=== PATIENT | female | born 1990 | race Caucasian/White ===

== ENCOUNTER 2017-10-29 17:03 | Observation (INO) | payer OTHER, MEDICAID, SELFPAY ==
[2017-10-29 17:14] VITALS: BP 120/80; PULSE 82; RESP 16; TEMP 36.3; O2SAT 97; BMI 21.7
--- NOTE | 2017-10-29 17:24 | ED_ITS ---
HPI - Nausea/Vomiting/Diarrhea <Sierra Villalobos PA-C - Last Filed: 10/29/17 22:17> General Chief complaint: Nausea/Vomiting/Diarrhea Stated complaint: FEELS DEHYDRATED,MOUTH DRY,LIPS DRY,NAUSEA Time Seen by Provider: 10/29/17 17:23 Source: patient Mode of arrival: ambulatory Limitations: no limitations History of Present Illness HPI Narrative: This 27-year-old the has a history of difficult to control type 1 diabetes comes in due to 1 hr history of sudden onset of nausea, dry mouth and lips, and feeling very thirsty. She states that she does have some headache with this which is a ?regular headache? versus more severe migraine which she describes as having prodrome all symptoms with visual scotoma. She states she has an acid sensation in her epigastrium and lower part of her chest. She states that she has not vomited ?yet?. She states that these symptoms typically happen when blood sugars are problematic. She states that she drink plenty of water today and has been eating normally. No changes in her insulin regimen. She states her blood sugars have been up and down recently , which she thinks is due to the heat. She states highs in the 300 today, lowest was 150. She states that she has not had any urinary symptoms such as frequency, dysuria or hematuria. She denies any abdominal pain recently, no diarrhea. She has not had fever or recent illness. She states that she has had these symptoms in the past, tend to improve with hydration and nausea medicine. She denies possibility of , LMP just ended Related Data Home Medications Medication Instructions Recorded Confirmed ACETAMINOPHEN 650 mg PO Q4HP PRN #0 03/03/16 10/29/17 Novolog Flexpen U-100 Insulin 5 - 15 units SUB-Q TID 10/29/17 10/29/17 Tresiba FlexTouch U-100 32 units SUB-Q DAILY 10/29/17 10/29/17 Allergies Allergy/AdvReac Type Severity Reaction Status Date / Time abdalla [ABDALLA] Allergy Intermediate Hives, Verified 10/29/17 17:59 pruritus iodine [IODINE] Allergy Intermediate rash, itchy Verified 10/29/17 17:59 morphine Allergy Intermediate Difficulty Verified 10/29/17 20:20 Breathing shellfish derived Allergy Intermediate rash Verified 10/29/17 17:59 [SHELLFISH DERIVED] adhesive [ADHESIVE] Allergy Unknown tape Verified 10/29/17 17:59 latex [LATEX] Allergy Unknown Verified 10/29/17 17:59 Review of Systems <SCOTTY Reece Last Filed: 10/29/17 22:17> Review of Systems All systems reviewed & are unremarkable except as noted in HPI and below Exam <SCOTTY Reece Last Filed: 10/29/17 22:17> Narrative Exam Narrative: GENERAL APPEARANCE: Patient sitting comfortably, in no distress. HEENT: PERRL, EOMI NECK: Supple LUNGS: Clear to auscultation bilaterally. HEART: Rate and rhythm regular without murmur, normal S1 and S2, no S3 or S4. ABDOMEN: Soft, moderate mid epigastric and substernal TTP without guarding or rebound, ND, + BS x 4 quadrants NEUROLOGIC: Alert and oriented, normal speech and coordination. MUSCULOSKELETAL: Full Csp AROM Initial Vital Signs Initial Vital Signs: Vital Signs Temperature 97.3 F L 10/29/17 17:14 Pulse Rate 82 10/29/17 17:14 Respiratory Rate 16 10/29/17 17:14 Blood Pressure 120/80 10/29/17 17:14 Pulse Oximetry 97 10/29/17 17:14 <Teddy Yap DO - Last Filed: 10/30/17 02:13> Initial Vital Signs Initial Vital Signs: Vital Signs Temperature 97.3 F L 10/29/17 17:14 Pulse Rate 82 10/29/17 17:14 Respiratory Rate 16 10/29/17 17:14 Blood Pressure 120/80 10/29/17 17:14 Pulse Oximetry 97 10/29/17 17:14 Course <SCOTTY Reece Last Filed: 10/29/17 22:17> Additional Information: Reviewed lab findings with Dr. Yap. Blood gas/pH is normal however glucose is over 1000. Patient is actually feeling better by the time this is returned and has had almost a L of fluids already. No change in mental status. Will continue fluid boluses and initiate insulin drip, plan ICU admission. I spoke with Dr. Granados who is agreeable and patient is admitted to ICU. Insulin drip has been started and 2nd L of fluids nearly complete at the time of transfer Orders Ordered: ED Orders 07/10/18 17:22 Urinalysis Sreen (Dip Only) Stat 10/29/17 17:36 Venous Blood Gas Stat 10/29/17 17:40 Complete Blood Count AUTO DIFF Stat Comprehensive Metabolic Panel Stat Lipase Stat 10/29/17 18:40 Test Urine Stat Urinalysis and Microscopic Stat 10/29/17 19:16 Glucose Stat 10/29/17 21:55 MRSA PCR Stat 10/29/17 22:08 Electrolytes Urgent Glucose Urgent 10/30/17 05:00 Basic Metabolic Panel Routine Insulin Human Regular 100 unit (/ Sodium Chloride) 100 mls @ 6 mls/hr IV TITRATE BLAISE; Protocol Last Titration: 10/29/17 22:10 Dose: 0 unit/hr, 0 mls/hr Titration: 10/29/17 21:00 Dose: 4 unit/hr, 4 mls/hr Admin: 10/29/17 19:07 Dose: 6 unit/hr, 6 mls/hr Sodium Chloride (Normal Saline 0.9% Flush) 10 ml IV BID BLAISE Sodium Chloride (Normal Saline 0.9% Flush) 10 ml IV PRN PRN PRN Reason: Flush Discontinued Medications Sodium Chloride (Normal Saline 0.9%) 1,000 mls @ 1,000 mls/hr IV BOLUS ONE Stop: 10/29/17 18:33 Last Infusion: 10/29/17 19:02 Dose: 0 mls/hr Admin: 10/29/17 18:00 Dose: 1,000 mls/hr Sodium Chloride (Normal Saline 0.9%) 1,000 mls @ 1,000 mls/hr IV BOLUS ONE Stop: 10/29/17 19:35 Last Infusion: 10/29/17 21:53 Dose: 0 mls/hr Admin: 10/29/17 19:44 Dose: 1,000 mls/hr Sodium Chloride (Normal Saline 0.9%) 1,000 mls @ 1,000 mls/hr IV BOLUS ONE Stop: 10/29/17 19:36 Last Admin: 10/29/17 20:43 Dose: Sodium Chloride (Normal Saline 0.9%) 1,000 mls @ 1,000 mls/hr IV BOLUS ONE Stop: 10/29/17 20:43 Last Admin: 10/29/17 21:54 Dose: Ondansetron HCl (Zofran) 4 mg IV NOW ONE Stop: 10/29/17 17:35 Last Admin: 10/29/17 18:00 Dose: 4 mg Vital Signs - 8 hr 10/29/17 19:07 10/29/17 19:50 10/30/17 00:08 Temperature 98.8 F 98.0 F Pulse Rate 78 96 H 80 Respiratory Rate 12 18 14 Blood Pressure 125/79 H 110/55 L Blood Pressure [Left Arm] 114/69 Pulse Oximetry 100 98 96 <Teddy Yap DO - Last Filed: 10/30/17 02:13> Orders Ordered: ED Orders 10/29/17 17:22 Urinalysis Sreen (Dip Only) Stat 10/29/17 17:36 Venous Blood Gas Stat 10/29/17 17:40 Complete Blood Count AUTO DIFF Stat Comprehensive Metabolic Panel Stat Lipase Stat 10/29/17 18:40 Test Urine Stat Urinalysis and Microscopic Stat 10/29/17 19:16 Glucose Stat 10/29/17 21:55 MRSA PCR Stat 10/29/17 22:08 Electrolytes Urgent Glucose Urgent 10/30/17 05:00 Basic Metabolic Panel Routine Insulin Human Regular 100 unit (/ Sodium Chloride) 100 mls @ 6 mls/hr IV TITRATE BLAISE; Protocol Last Titration: 10/29/17 22:10 Dose: 0 unit/hr, 0 mls/hr Titration: 10/29/17 21:00 Dose: 4 unit/hr, 4 mls/hr Admin: 10/29/17 19:07 Dose: 6 unit/hr, 6 mls/hr Sodium Chloride (Normal Saline 0.9% Flush) 10 ml IV BID BLAISE Sodium Chloride (Normal Saline 0.9% Flush) 10 ml IV PRN PRN PRN Reason: Flush Discontinued Medications Sodium Chloride (Normal Saline 0.9%) 1,000 mls @ 1,000 mls/hr IV BOLUS ONE Stop: 10/29/17 18:33 Last Infusion: 10/29/17 19:02 Dose: 0 mls/hr Admin: 10/29/17 18:00 Dose: 1,000 mls/hr Sodium Chloride (Normal Saline 0.9%) 1,000 mls @ 1,000 mls/hr IV BOLUS ONE Stop: 10/29/17 19:35 Last Infusion: 10/29/17 21:53 Dose: 0 mls/hr Admin: 10/29/17 19:44 Dose: 1,000 mls/hr Sodium Chloride (Normal Saline 0.9%) 1,000 mls @ 1,000 mls/hr IV BOLUS ONE Stop: 10/29/17 19:36 Last Admin: 10/29/17 20:43 Dose: Sodium Chloride (Normal Saline 0.9%) 1,000 mls @ 1,000 mls/hr IV BOLUS ONE Stop: 10/29/17 20:43 Last Admin: 10/29/17 21:54 Dose: Ondansetron HCl (Zofran) 4 mg IV NOW ONE Stop: 10/29/17 17:35 Last Admin: 10/29/17 18:00 Dose: 4 mg Vital Signs - 8 hr 10/29/17 19:07 10/29/17 19:50 10/30/17 00:08 Temperature 98.8 F 98.0 F Pulse Rate 78 96 H 80 Respiratory Rate 12 18 14 Blood Pressure 125/79 H 110/55 L Blood Pressure [Left Arm] 114/69 Pulse Oximetry 100 98 96 MDM - Nausea/Vomiting/Diarrhea <Sierra Villalobos PA-C - Last Filed: 10/29/17 22:17> Lab Data Attestation: I reviewed the patient's lab results. Result diagrams: 10/29/17 17:40 10/29/17 22:08 Lab Results 10/29/17 10/29/17 10/29/17 Range/Units 17:36 17:40 17:40 WBC 6.8 (4.5-11.0) X10^3/uL RBC 4.51 (4.0-5.2) X10^6/uL Hgb 13.6 (12.0-16.0) g/dL Hct 41.8 (36-46) % MCV 92.8 (80-100) fL MCH 30.2 (26-34) PG MCHC 32.5 (30-36) % RDW 12.9 (11.6-14.8) % Plt Count 261 (150-400) X10^3/uL Neut % (Auto) 66.7 (50-75) % Lymph % (Auto) 22.8 L (25-40) % [place] % (Auto) 8.4 (3-14) % Eos % (Auto) 1.1 L (2-4) % Baso % (Auto) 1.0 (0-2) % Neut # (Auto) 4500 (5756-8953) /uL VBG pH 7.41 (7.31-7.41) VBG pCO2 43.4 L (45-50) mmHg VBG pO2 34 L (35-45) mmHg VBG HCO3 27 (24-28) mmol/L VBG Total CO2 29 (24-29) mmol/L VBG O2 Saturation 65 L (70-75) % VBG Base Excess 3.0 (0-4) mmol/L Sodium 125 L (137-145) mmol/L Potassium 4.9 (3.4-5.1) mmol/L Chloride 90 L (98-107) mmol/L Carbon Dioxide 23 (22-32) mmol/L BUN 14 (7-17) mg/dL Creatinine 0.70 (0.52-1.04) mg/dL Estimated GFR > 60.0 (>60) mL/min BUN/Creatinine Ratio 20.0 (6-22) Glucose 1062 H* (70-100) mg/dL Calcium 9.4 (8.4-10.2) mg/dL Total Bilirubin 0.6 (0.2-1.3) mg/dL AST 23 (14-36) IU/L ALT 28 (9-52) IU/L Alkaline Phosphatase 228 H (38-126) U/L Total Protein 6.9 (6.3-8.2) g/dL Albumin 4.4 (3.5-5.0) g/dL Globulin 2.5 (1.7-4.1) g/dL Albumin/Globulin Ratio 1.8 (1.0-2.8) Lipase 166 (23-300) U/L Urine Color Urine Appearance Urine pH (4.5-8.0) Ur Specific [place] (1.000-1.035) Urine Protein (Negative) Urine Glucose (UA) (Normal) g/dL Urine Ketones (NEGATIVE) Urine Occult Blood (Negative) Urine Nitrate (Negative) Urine Bilirubin (NEGATIVE) Urine Urobilinogen (0.2) E.U./dL Ur Leukocyte Esterase (NEGATIVE) Urine RBC (0-5/HPF) Urine WBC (0-5/HPF) Ur Squamous Epith Cells Urine Bacteria (None) Ur Culture Indicated? Micro UA Comment Urine Test (Negative) Nasal Screen MRSA (PCR) (Negative) 10/29/17 10/29/17 10/29/17 Range/Units 18:40 18:40 19:16 WBC (4.5-11.0) X10^3/uL RBC (4.0-5.2) X10^6/uL Hgb (12.0-16.0) g/dL Hct (36-46) % MCV (80-100) fL MCH (26-34) PG MCHC (30-36) % RDW (11.6-14.8) % Plt Count (150-400) X10^3/uL Neut % (Auto) (50-75) % Lymph % (Auto) (25-40) % [place] % (Auto) (3-14) % Eos % (Auto) (2-4) % Baso % (Auto) (0-2) % Neut # (Auto) (9795-2411) /uL VBG pH (7.31-7.41) VBG pCO2 (45-50) mmHg VBG pO2 (35-45) mmHg VBG HCO3 (24-28) mmol/L VBG Total CO2 (24-29) mmol/L VBG O2 Saturation (70-75) % VBG Base Excess (0-4) mmol/L Sodium (137-145) mmol/L Potassium (3.4-5.1) mmol/L Chloride (98-107) mmol/L Carbon Dioxide (22-32) mmol/L BUN (7-17) mg/dL Creatinine (0.52-1.04) mg/dL Estimated GFR (>60) mL/min BUN/Creatinine Ratio (6-22) Glucose 846 H* (70-100) mg/dL Calcium (8.4-10.2) mg/dL Total Bilirubin (0.2-1.3) mg/dL AST (14-36) IU/L ALT (9-52) IU/L Alkaline Phosphatase (38-126) U/L Total Protein (6.3-8.2) g/dL Albumin (3.5-5.0) g/dL Globulin (1.7-4.1) g/dL Albumin/Globulin Ratio (1.0-2.8) Lipase (23-300) U/L Urine Color Yellow Urine Appearance Clear Urine pH 7.0 (4.5-8.0) Ur Specific [place] <=1.005 (1.000-1.035) Urine Protein Negative (Negative) Urine Glucose (UA) 3+ (Normal) g/dL Urine Ketones Negative (NEGATIVE) Urine Occult Blood Trace-lysed (Negative) Urine Nitrate Negative (Negative) Urine Bilirubin Negative (NEGATIVE) Urine Urobilinogen 0.2 (0.2) E.U./dL Ur Leukocyte Esterase Negative (NEGATIVE) Urine RBC 0-1/hpf (0-5/HPF) Urine WBC 1-5/hpf (0-5/HPF) Ur Squamous Epith Cells 0-1 /hpf Urine Bacteria None seen (None) Ur Culture Indicated? Cult not indicated Micro UA Comment Not Reportable Urine Test Negative (Negative) Nasal Screen MRSA (PCR) (Negative) 10/29/17 10/29/17 Range/Units 21:55 22:08 WBC (4.5-11.0) X10^3/uL RBC (4.0-5.2) X10^6/uL Hgb (12.0-16.0) g/dL Hct (36-46) % MCV (80-100) fL MCH (26-34) PG MCHC (30-36) % RDW (11.6-14.8) % Plt Count (150-400) X10^3/uL Neut % (Auto) (50-75) % Lymph % (Auto) (25-40) % [place] % (Auto) (3-14) % Eos % (Auto) (2-4) % Baso % (Auto) (0-2) % Neut # (Auto) (9533-2404) /uL VBG pH (7.31-7.41) VBG pCO2 (45-50) mmHg VBG pO2 (35-45) mmHg VBG HCO3 (24-28) mmol/L VBG Total CO2 (24-29) mmol/L VBG O2 Saturation (70-75) % VBG Base Excess (0-4) mmol/L Sodium 142 D (137-145) mmol/L Potassium 3.6 D (3.4-5.1) mmol/L Chloride 107 (98-107) mmol/L Carbon Dioxide 24 (22-32) mmol/L BUN (7-17) mg/dL Creatinine (0.52-1.04) mg/dL Estimated GFR (>60) mL/min BUN/Creatinine Ratio (6-22) Glucose 115 H D (70-100) mg/dL Calcium (8.4-10.2) mg/dL Total Bilirubin (0.2-1.3) mg/dL AST (14-36) IU/L ALT (9-52) IU/L Alkaline Phosphatase (38-126) U/L Total Protein (6.3-8.2) g/dL Albumin (3.5-5.0) g/dL Globulin (1.7-4.1) g/dL Albumin/Globulin Ratio (1.0-2.8) Lipase (23-300) U/L Urine Color Urine Appearance Urine pH (4.5-8.0) Ur Specific [place] (1.000-1.035) Urine Protein (Negative) Urine Glucose (UA) (Normal) g/dL Urine Ketones (NEGATIVE) Urine Occult Blood (Negative) Urine Nitrate (Negative) Urine Bilirubin (NEGATIVE) Urine Urobilinogen (0.2) E.U./dL Ur Leukocyte Esterase (NEGATIVE) Urine RBC (0-5/HPF) Urine WBC (0-5/HPF) Ur Squamous Epith Cells Urine Bacteria (None) Ur Culture Indicated? Micro UA Comment Urine Test (Negative) Nasal Screen MRSA (PCR) Negative for mrsa (Negative) <Teddy Yap DO - Last Filed: 10/30/17 02:13> Lab Data Lab Results 10/29/17 10/29/17 10/29/17 Range/Units 17:36 17:40 17:40 WBC 6.8 (4.5-11.0) X10^3/uL RBC 4.51 (4.0-5.2) X10^6/uL Hgb 13.6 (12.0-16.0) g/dL Hct 41.8 (36-46) % MCV 92.8 (80-100) fL MCH 30.2 (26-34) PG MCHC 32.5 (30-36) % RDW 12.9 (11.6-14.8) % Plt Count 261 (150-400) X10^3/uL Neut % (Auto) 66.7 (50-75) % Lymph % (Auto) 22.8 L (25-40) % [place] % (Auto) 8.4 (3-14) % Eos % (Auto) 1.1 L (2-4) % Baso % (Auto) 1.0 (0-2) % Neut # (Auto) 4500 (5664-1347) /uL VBG pH 7.41 (7.31-7.41) VBG pCO2 43.4 L (45-50) mmHg VBG pO2 34 L (35-45) mmHg VBG HCO3 27 (24-28) mmol/L VBG Total CO2 29 (24-29) mmol/L VBG O2 Saturation 65 L (70-75) % VBG Base Excess 3.0 (0-4) mmol/L Sodium 125 L (137-145) mmol/L Potassium 4.9 (3.4-5.1) mmol/L Chloride 90 L (98-107) mmol/L Carbon Dioxide 23 (22-32) mmol/L BUN 14 (7-17) mg/dL Creatinine 0.70 (0.52-1.04) mg/dL Estimated GFR > 60.0 (>60) mL/min BUN/Creatinine Ratio 20.0 (6-22) Glucose 1062 H* (70-100) mg/dL Calcium 9.4 (8.4-10.2) mg/dL Total Bilirubin 0.6 (0.2-1.3) mg/dL AST 23 (14-36) IU/L ALT 28 (9-52) IU/L Alkaline Phosphatase 228 H (38-126) U/L Total Protein 6.9 (6.3-8.2) g/dL Albumin 4.4 (3.5-5.0) g/dL Globulin 2.5 (1.7-4.1) g/dL Albumin/Globulin Ratio 1.8 (1.0-2.8) Lipase 166 (23-300) U/L Urine Color Urine Appearance Urine pH (4.5-8.0) Ur Specific [place] (1.000-1.035) Urine Protein (Negative) Urine Glucose (UA) (Normal) g/dL Urine Ketones (NEGATIVE) Urine Occult Blood (Negative) Urine Nitrate (Negative) Urine Bilirubin (NEGATIVE) Urine Urobilinogen (0.2) E.U./dL Ur Leukocyte Esterase (NEGATIVE) Urine RBC (0-5/HPF) Urine WBC (0-5/HPF) Ur Squamous Epith Cells Urine Bacteria (None) Ur Culture Indicated? Micro UA Comment Urine Test (Negative) Nasal Screen MRSA (PCR) (Negative) 10/29/17 10/29/17 10/29/17 Range/Units 18:40 18:40 19:16 WBC (4.5-11.0) X10^3/uL RBC (4.0-5.2) X10^6/uL Hgb (12.0-16.0) g/dL Hct (36-46) % MCV (80-100) fL MCH (26-34) PG MCHC (30-36) % RDW (11.6-14.8) % Plt Count (150-400) X10^3/uL Neut % (Auto) (50-75) % Lymph % (Auto) (25-40) % [place] % (Auto) (3-14) % Eos % (Auto) (2-4) % Baso % (Auto) (0-2) % Neut # (Auto) (3448-1183) /uL VBG pH (7.31-7.41) VBG pCO2 (45-50) mmHg VBG pO2 (35-45) mmHg VBG HCO3 (24-28) mmol/L VBG Total CO2 (24-29) mmol/L VBG O2 Saturation (70-75) % VBG Base Excess (0-4) mmol/L Sodium (137-145) mmol/L Potassium (3.4-5.1) mmol/L Chloride (98-107) mmol/L Carbon Dioxide (22-32) mmol/L BUN (7-17) mg/dL Creatinine (0.52-1.04) mg/dL Estimated GFR (>60) mL/min BUN/Creatinine Ratio (6-22) Glucose 846 H* (70-100) mg/dL Calcium (8.4-10.2) mg/dL Total Bilirubin (0.2-1.3) mg/dL AST (14-36) IU/L ALT (9-52) IU/L Alkaline Phosphatase (38-126) U/L Total Protein (6.3-8.2) g/dL Albumin (3.5-5.0) g/dL Globulin (1.7-4.1) g/dL Albumin/Globulin Ratio (1.0-2.8) Lipase (23-300) U/L Urine Color Yellow Urine Appearance Clear Urine pH 7.0 (4.5-8.0) Ur Specific [place] <=1.005 (1.000-1.035) Urine Protein Negative (Negative) Urine Glucose (UA) 3+ (Normal) g/dL Urine Ketones Negative (NEGATIVE) Urine Occult Blood Trace-lysed (Negative) Urine Nitrate Negative (Negative) Urine Bilirubin Negative (NEGATIVE) Urine Urobilinogen 0.2 (0.2) E.U./dL Ur Leukocyte Esterase Negative (NEGATIVE) Urine RBC 0-1/hpf (0-5/HPF) Urine WBC 1-5/hpf (0-5/HPF) Ur Squamous Epith Cells 0-1 /hpf Urine Bacteria None seen (None) Ur Culture Indicated? Cult not indicated Micro UA Comment Not Reportable Urine Test Negative (Negative) Nasal Screen MRSA (PCR) (Negative) 10/29/17 10/29/17 Range/Units 21:55 22:08 WBC (4.5-11.0) X10^3/uL RBC (4.0-5.2) X10^6/uL Hgb (12.0-16.0) g/dL Hct (36-46) % MCV (80-100) fL MCH (26-34) PG MCHC (30-36) % RDW (11.6-14.8) % Plt Count (150-400) X10^3/uL Neut % (Auto) (50-75) % Lymph % (Auto) (25-40) % [place] % (Auto) (3-14) % Eos % (Auto) (2-4) % Baso % (Auto) (0-2) % Neut # (Auto) (8220-8262) /uL VBG pH (7.31-7.41) VBG pCO2 (45-50) mmHg VBG pO2 (35-45) mmHg VBG HCO3 (24-28) mmol/L VBG Total CO2 (24-29) mmol/L VBG O2 Saturation (70-75) % VBG Base Excess (0-4) mmol/L Sodium 142 D (137-145) mmol/L Potassium 3.6 D (3.4-5.1) mmol/L Chloride 107 (98-107) mmol/L Carbon Dioxide 24 (22-32) mmol/L BUN (7-17) mg/dL Creatinine (0.52-1.04) mg/dL Estimated GFR (>60) mL/min BUN/Creatinine Ratio (6-22) Glucose 115 H D (70-100) mg/dL Calcium (8.4-10.2) mg/dL Total Bilirubin (0.2-1.3) mg/dL AST (14-36) IU/L ALT (9-52) IU/L Alkaline Phosphatase (38-126) U/L Total Protein (6.3-8.2) g/dL Albumin (3.5-5.0) g/dL Globulin (1.7-4.1) g/dL Albumin/Globulin Ratio (1.0-2.8) Lipase (23-300) U/L Urine Color Urine Appearance Urine pH (4.5-8.0) Ur Specific [place] (1.000-1.035) Urine Protein (Negative) Urine Glucose (UA) (Normal) g/dL Urine Ketones (NEGATIVE) Urine Occult Blood (Negative) Urine Nitrate (Negative) Urine Bilirubin (NEGATIVE) Urine Urobilinogen (0.2) E.U./dL Ur Leukocyte Esterase (NEGATIVE) Urine RBC (0-5/HPF) Urine WBC (0-5/HPF) Ur Squamous Epith Cells Urine Bacteria (None) Ur Culture Indicated? Micro UA Comment Urine Test (Negative) Nasal Screen MRSA (PCR) Negative for mrsa (Negative) Discharge Plan Departure Patient Disposition: Admitted As Inpatient Clinical Impression: Hyperglycemia Discharge Date/Time: 10/29/17 19:57 Interventions: ED Discharge Assessment Last Done: 10/29/17 19:57 Admit Date/Time: 10/29/17 19:31 Admit Provider: Yadira Granados <Teddy Yap DO - Last Filed: 10/30/17 02:13> Cosign ED Attending Cosshaheedature Attestation: I was immediately available in the department for consultation. Documentation has been reviewed. I agree with assessment and plan.
[2017-10-29 17:55] LABS: Add Manual Diff / Slide Review NO; Eosinophils Percent Auto 1.1 % (2-4); Hematocrit 41.8 % (36-46); Hemoglobin 13.6 g/dL (12.0-16.0); Lymphocytes Percent Auto 22.8 % (25-40); Mean Corpuscular HGB Conc 32.5 % (30-36); Mean Corpuscular Hemoglobin 30.2 PG (26-34); Mean Corpuscular Volume 92.8 fL (80-100); Monocytes Percent Auto 8.4 % (3-14); Neutrophils Absolute Auto 4500 /uL (3000-5900); Neutrophils Percent Auto 66.7 % (50-75); Platelet Count 261 X10^3/uL (150-400); Red Blood Cell Count 4.51 X10^6/uL (4.0-5.2); Red Cell Distribution Width 12.9 % (11.6-14.8); White Blood Cell Count 6.8 X10^3/uL (4.5-11.0)
[2017-10-29] MEDS: ONDANSETRON 4 MG/2 ML INJ IV (18:00)
[2017-10-29] MEDS: SODIUM CHLORIDE 0.9% 1,000 ML 1000 ML IV ×2 (18:00→19:44)
[2017-10-29 18:25] LABS: Alanine Aminotransferase 28 IU/L (9-52); Albumin 4.4 g/dL (3.5-5.0); Albumin Globulin Ratio 1.8 (1.0-2.8); Alkaline Phosphatase 228 U/L (38-126); Aspartate Aminotransferase 23 IU/L (14-36); Bilirubin Total 0.6 mg/dL (0.2-1.3); Blood Urea Nitrogen 14 mg/dL (7-17); Calcium 9.4 mg/dL (8.4-10.2); Carbon Dioxide 23 mmol/L (22-32); Chloride 90 mmol/L (98-107); Estimated Glomerular Filt Rate > 60.0 mL/min (>60); Globulin 2.5 g/dL (1.7-4.1); HEMOLYSIS < 15 (0-50); Lipase 166 U/L (23-300); Potassium 4.9 mmol/L (3.4-5.1); Sodium 125 mmol/L (137-145); Total Protein 6.9 g/dL (6.3-8.2)
[2017-10-29 18:34] LABS: Glucose 1062 mg/dL (70-100)
[2017-10-29 18:56] LABS: HCO3 VBG 27 mmol/L (24-28); PCO2 VBG 43.4 mmHg (45-50); PO2 VBG 34 mmHg (35-45); Total CO2 VBG 29 mmol/L (24-29); pH VBG 7.41 (7.31-7.41)
[2017-10-29 18:57] LABS: Pregnancy Test Urine Negative (Negative)
[2017-10-29 18:57] LABS: Oxygen Saturation VBG 65 % (70-75)
[2017-10-29 18:59] LABS: Bacteria Urine None Seen
[2017-10-29 19:01] LABS: Appearance Urine UA CLEAR; Bilirubin Urine UA NEGATIVE (NEGATIVE); Color Urine UA YELLOW; Glucose Urine UA 3+ g/dL (Normal); Ketones Urine UA NEGATIVE (NEGATIVE); Leukocyte Esterase Urine UA NEGATIVE (NEGATIVE); Nitrite Urine UA Negative (Negative); Occult Blood Urine UA TRACE-LYSED (Negative); Protein Urine UA NEGATIVE (Negative); Specific Gravity Urine UA <=1.005 (1.000-1.035); Urobilinogen Urine UA 0.2 E.U./dL (0.2)
[2017-10-29 19:07] VITALS: BP 114/69; PULSE 78; RESP 12; O2SAT 100
[2017-10-29] MEDS: INSULIN REGULAR, HUMAN 100 UNIT in SODIUM CHLORIDE 0.9% 100 ML 6 ML IV (19:07)
[2017-10-29 19:11] LABS: Culture Indicated Urine Cult Not Indicated; RBC Urine 0-1/HPF (0-5/HPF); Squamous Epithelial Cell Urine 0-1 /HPF; WBC Urine 1-5/HPF (0-5/HPF)
[2017-10-29 19:50] VITALS: BP 125/79; PULSE 96; RESP 18; TEMP 37.1; O2SAT 98
[2017-10-29 19:56] LABS: Glucose 846 mg/dL (70-100)
[2017-10-29 20:33] VITALS: BMI 22.7
--- NOTE | 2017-10-29 20:36 | PM.HP.1 ---
History of Present Illness Date Patient Seen: 10/29/17 Time Patient Seen: 20:20 Chief complaint: FEELS DEHYDRATED,MOUTH DRY,LIPS DRY,NAUSEA Narrative: 27-year-old female with history of type 1 diabetes who presented to the [facility] Emergency Room today for dry mouth, feeling thirsty, and nausea. She has type 1 diabetes. She is followed by Dr. Leonidas Oreilly. She is currently on 32 units of long-acting insulin and short-acting insulin per carb counting and sliding scale. She has been taking her insulin as prescribed. She also has been eating and drinking as usual. She has noticed fluctuating glucose readings in the past couple days. Her glucose was as high as 300 and as low as 150. She started having headache earlier this afternoon. She subsequently started feeling thirsty and dry mouth. She felt she was not able to keep oral hydration. She also started having nausea. She subsequently was brought to the [facility] Emergency Room. Her glucose was found to be greater than 1000. Her bicarb was normal. PH on the ABG was also normal. She received 2 L of IV fluid flush. She was also started on insulin drip, currently at 8 units/minute. She feels much better since she came to the hospital. Patient History Medical History Migraine headache (Chronic) Type 1 diabetes mellitus (Chronic) DKA (diabetic ketoacidoses) (Resolved) History of pyelonephritis (Resolved) Nephrolithiasis (Resolved) Surgical History History of ureter stent (Resolved) Comment: Social history: She is single. She has been with her current sexual partner for about 8 months. Denies alcohol drinking or cigarette smoking. Family history: mother had ?leaky heart valve? Family & Social History Safety & Behavioral: Feels Safe in Current Yes Environment Been Physically Hurt or No Threatened By a Person Tobacco & Substance use: Smoking Status Never smoker Substance Use Type does not use Meds Home Medications Medication Instructions Recorded Confirmed Type ACETAMINOPHEN 650 mg PO Q4HP PRN #0 03/03/16 10/29/17 History Novolog Flexpen U-100 Insulin 5 - 15 units SUB-Q TID 10/29/17 10/29/17 History Tresiba FlexTouch U-100 32 units SUB-Q DAILY 10/29/17 10/29/17 History Allergies Allergy/AdvReac Type Severity Reaction Status Date / Time arredondo [ARREDONDO] Allergy Intermediate Hives, Verified 10/29/17 17:59 pruritus iodine [IODINE] Allergy Intermediate rash, itchy Verified 10/29/17 17:59 morphine Allergy Intermediate Difficulty Verified 10/29/17 20:20 Breathing shellfish derived Allergy Intermediate rash Verified 10/29/17 17:59 [SHELLFISH DERIVED] adhesive [ADHESIVE] Allergy Unknown tape Verified 10/29/17 17:59 latex [LATEX] Allergy Unknown Verified 10/29/17 17:59 Review of Systems Constitutional Constitutional: Reports weakness Comments: Denies fever chills or sweats Cardiovascular Comments: No chest pain or shortness of breath Respiratory Comments: Denies cough Gastrointestinal Gastrointestinal: Reports nausea Genitourinary Comments: Denies urinary frequency or urgency. No burning with urination Musculoskeletal Comments: No back pain Neurologic Neurologic: Reports weakness Exam Vital Signs (past 8 hours): - 10/29/17 17:14 10/29/17 19:07 Temperature 97.3 F L Pulse Rate 82 78 Respiratory Rate 16 12 Blood Pressure 120/80 Blood Pressure [Left Arm] 114/69 Pulse Oximetry 97 100 Oxygen Delivery Method Room Air Narrative Exam Narrative: GENERAL: Well-appearing, well-nourished and in no acute distress. HEENT: Head normocephalic, atraumatic. Eyes pupils equal round NECK: Supple, no JVD, CHEST: Breath sounds equal bilaterally, no wheezes rales or rhonchi. CARDIAC: Regular rate and rhythm without murmurs, rubs or gallops. ABDOMEN: Soft, nontender. Normoactive bowel sounds all 4 quadrants. No guarding or rebound. EXTREMITIES: Normal range of motion, no clubbing or edema. NEUROLOGICAL: Alert and oriented; Normal muscle strength. SKIN: Warm, dry, no petechiae, no rashes or lesions. Objective Labs Result Diagrams: 10/29/17 17:40 10/29/17 19:16 Labs: Laboratory Results - last 24 hr 10/29/17 10/29/17 10/29/17 17:36 17:40 17:40 WBC 6.8 RBC 4.51 Hgb 13.6 Hct 41.8 MCV 92.8 MCH 30.2 MCHC 32.5 RDW 12.9 Plt Count 261 Neut % (Auto) 66.7 Lymph % (Auto) 22.8 L [place] % (Auto) 8.4 Eos % (Auto) 1.1 L Baso % (Auto) 1.0 Neut # (Auto) 4500 VBG pH 7.41 VBG pCO2 43.4 L VBG pO2 34 L VBG HCO3 27 VBG Total CO2 29 VBG O2 Saturation 65 L VBG Base Excess 3.0 Sodium 125 L Potassium 4.9 Chloride 90 L Carbon Dioxide 23 BUN 14 Creatinine 0.70 Estimated GFR > 60.0 BUN/Creatinine Ratio 20.0 Glucose 1062 H* Calcium 9.4 Total Bilirubin 0.6 AST 23 ALT 28 Alkaline Phosphatase 228 H Total Protein 6.9 Albumin 4.4 Globulin 2.5 Albumin/Globulin Ratio 1.8 Lipase 166 Urine Color Urine Appearance Urine pH Ur Specific [place] Urine Protein Urine Glucose (UA) Urine Ketones Urine Occult Blood Urine Nitrate Urine Bilirubin Urine Urobilinogen Ur Leukocyte Esterase Urine RBC Urine WBC Ur Squamous Epith Cells Urine Bacteria Ur Culture Indicated? Micro UA Comment Urine Test 10/29/17 10/29/17 10/29/17 18:40 18:40 19:16 WBC RBC Hgb Hct MCV MCH MCHC RDW Plt Count Neut % (Auto) Lymph % (Auto) [place] % (Auto) Eos % (Auto) Baso % (Auto) Neut # (Auto) VBG pH VBG pCO2 VBG pO2 VBG HCO3 VBG Total CO2 VBG O2 Saturation VBG Base Excess Sodium Potassium Chloride Carbon Dioxide BUN Creatinine Estimated GFR BUN/Creatinine Ratio Glucose 846 H* Calcium Total Bilirubin AST ALT Alkaline Phosphatase Total Protein Albumin Globulin Albumin/Globulin Ratio Lipase Urine Color Yellow Urine Appearance Clear Urine pH 7.0 Ur Specific [place] <=1.005 Urine Protein Negative Urine Glucose (UA) 3+ Urine Ketones Negative Urine Occult Blood Trace-lysed Urine Nitrate Negative Urine Bilirubin Negative Urine Urobilinogen 0.2 Ur Leukocyte Esterase Negative Urine RBC 0-1/hpf Urine WBC 1-5/hpf Ur Squamous Epith Cells 0-1 /hpf Urine Bacteria None seen Ur Culture Indicated? Cult not indicated Micro UA Comment Not Reportable Urine Test Negative Assessment & Plan Plan: Assessment/Plan Narrative: 1. Hyperosmolar hyperglycemia: She had aggressive IV hydration with improvement of her symptoms. Discontinue IV fluids after the current L is finished. Start diabetic diet. Continue insulin drip at 6 units/hour. Titrate insulin dose if needed. Transition her to the outpatient insulin regimen once her glucose improves. We will check her electrolytes in about 4 hr. Replace electrolytes if needed. 2.Type 1 diabetes: She is currently on insulin drip. We will transition her to the subcutaneous insulin regimen once her hyperglycemia is improved.
--- NOTE | 2017-10-29 22:02 | PC.NURSE ---
Addendum entered by Mariela Mills R.N. 10/29/17 23:02: 2300 - Pt BG 86, Denies feelings of hypoglycemia. States that s/s of hypoglycemia usually occur around 60. Pt declines glucose source at this time. Monitor. Original Note: Addendum entered by Mariela Mills R.N. 10/29/17 22:59: 2200 - BG 112. Insulin gtt off. IV saline locked. Lab to repeat electrolytes. Pt denies need at this time. S.O. at bedside. Original Note: Pt alert and oriented. Denies nausea. Denies Pain. Insulin gtt initated at 6 units/hr by ER. 2100 BG decreased to 338, insulin gtt titrated to 4 units/hr. Bolus infusing complete. TKO for gtt. Pt taking ice chips. Call light in reach.
[2017-10-29 22:22] LABS: Carbon Dioxide 24 mmol/L (22-32); Chloride 107 mmol/L (98-107); Glucose 115 mg/dL (70-100); HEMOLYSIS < 15 (0-50); Potassium 3.6 mmol/L (3.4-5.1); Sodium 142 mmol/L (137-145)
[2017-10-30 00:08] VITALS: BP 110/55; PULSE 80; RESP 14; TEMP 36.7; O2SAT 96
--- NOTE | 2017-10-30 01:27 | PC.NURSE ---
[id number] Pt denies nausea and states she is feeling much better. CBG 130. Pt watching television. Significant other at bedside. Assessment completed.
[2017-10-30 04:38] VITALS: BP 100/47; PULSE 85; RESP 18; TEMP 36.3; O2SAT 97
[2017-10-30 05:24] LABS: BUN Creatinine Ratio 16.7 (6-22); Blood Urea Nitrogen 10 mg/dL (7-17); Calcium 8.5 mg/dL (8.4-10.2); Carbon Dioxide 25 mmol/L (22-32); Chloride 107 mmol/L (98-107); Estimated Glomerular Filt Rate > 60.0 mL/min (>60); Glucose 117 mg/dL (70-100); HEMOLYSIS < 15 (0-50); Potassium 3.4 mmol/L (3.4-5.1); Sodium 139 mmol/L (137-145)
--- NOTE | 2017-10-30 06:09 | PC.NURSE ---
0430 Pt awakens easily and denies nausea or abd pain. Finger stick glucose 114. Pt states she is feeling much better. 0445 Serum CO2 25 and serum glucose 117. Pt sleeping between interventions.
--- NOTE | 2017-10-30 06:37 | PC.NURSE ---
0630 Pt has not voided this shift. States no urge to void. Instructed to call for assist and need to measure urine. Pt agreeable.
[2017-10-30 08:03] VITALS: BP 110/69; PULSE 69; RESP 16; TEMP 36.9; O2SAT 99
--- NOTE | 2017-10-30 09:30 | PM.DS.1 ---
History of Present Illness Chief complaint: FEELS DEHYDRATED,MOUTH DRY,LIPS DRY,NAUSEA Narrative: 27-year-old female with history of type 1 diabetes who presented to the [facility] Emergency Room today for dry mouth, feeling thirsty, and nausea. She has type 1 diabetes. She is followed by Dr. Leonidas Oreilly. She is currently on 32 units of long-acting insulin and short-acting insulin per carb counting and sliding scale. She has been taking her insulin as prescribed. She also has been eating and drinking as usual. She has noticed fluctuating glucose readings in the past couple days. Her glucose was as high as 300 and as low as 150. She started having headache earlier this afternoon. She subsequently started feeling thirsty and dry mouth. She felt she was not able to keep oral hydration. She also started having nausea. She subsequently was brought to the [facility] Emergency Room. Her glucose was found to be greater than 1000. Her bicarb was normal. PH on the ABG was also normal. She received 2 L of IV fluid flush. She was also started on insulin drip, currently at 8 units/minute. She feels much better since she came to the hospital. Discharge Providers Date of admission: 10/29/17 19:31 Primary care physician: Leonidas Oreilly MD Discharge provider: Yadira Granados MD Discharge Date: 10/30/17 Summary Discharge Diagnosis: 1. Hyperosmolar hyperglycemia 2. Type 1 diabetes Hospital Course: Patient was treated with aggressive IV hydration. She received 2 L of IV normal saline fluid flushed. She was also started on insulin drip initially at 8 units/hour and subsequently at 6 units/hour. Her glucose normalized at 2200, about 3 hr after hospital admission. She insulin drip was turned off. Her fingerstick glucose readings are stable. Her nausea and abdominal discomfort have resolved. She is going to be discharged home. She will resume her home insulin regimen. She will follow up with Dr. Oreilly as outpatient. Encouraged her to keep oral hydration. Status at Discharge Cognitive/behavioral status at discharge: Alert and oriented x3 Functional status at discharge: independent ambulation Overall status at discharge: patient is back to baseline Time Spent with Patient Greater than 30 minutes Exam Vital Signs (past 8 hours): - 10/30/17 04:38 10/30/17 08:03 Temperature 97.4 F L 98.5 F Pulse Rate 85 69 Respiratory Rate 18 16 Blood Pressure 100/47 L 110/69 Pulse Oximetry 97 99 Oxygen Delivery Method Room Air Oxygen Flow Rate 0 Objective Labs Result Diagrams: 10/29/17 17:40 10/30/17 04:42 Labs: Laboratory Results - last 24 hr 10/29/17 10/29/17 10/29/17 17:36 17:40 17:40 WBC 6.8 RBC 4.51 Hgb 13.6 Hct 41.8 MCV 92.8 MCH 30.2 MCHC 32.5 RDW 12.9 Plt Count 261 Neut % (Auto) 66.7 Lymph % (Auto) 22.8 L [place] % (Auto) 8.4 Eos % (Auto) 1.1 L Baso % (Auto) 1.0 Neut # (Auto) 4500 VBG pH 7.41 VBG pCO2 43.4 L VBG pO2 34 L VBG HCO3 27 VBG Total CO2 29 VBG O2 Saturation 65 L VBG Base Excess 3.0 Sodium 125 L Potassium 4.9 Chloride 90 L Carbon Dioxide 23 BUN 14 Creatinine 0.70 Estimated GFR > 60.0 BUN/Creatinine Ratio 20.0 Glucose 1062 H* Calcium 9.4 Total Bilirubin 0.6 AST 23 ALT 28 Alkaline Phosphatase 228 H Total Protein 6.9 Albumin 4.4 Globulin 2.5 Albumin/Globulin Ratio 1.8 Lipase 166 Urine Color Urine Appearance Urine pH Ur Specific [place] Urine Protein Urine Glucose (UA) Urine Ketones Urine Occult Blood Urine Nitrate Urine Bilirubin Urine Urobilinogen Ur Leukocyte Esterase Urine RBC Urine WBC Ur Squamous Epith Cells Urine Bacteria Ur Culture Indicated? Micro UA Comment Urine Test Nasal Screen MRSA (PCR) 10/29/17 10/29/17 10/29/17 18:40 18:40 19:16 WBC RBC Hgb Hct MCV MCH MCHC RDW Plt Count Neut % (Auto) Lymph % (Auto) [place] % (Auto) Eos % (Auto) Baso % (Auto) Neut # (Auto) VBG pH VBG pCO2 VBG pO2 VBG HCO3 VBG Total CO2 VBG O2 Saturation VBG Base Excess Sodium Potassium Chloride Carbon Dioxide BUN Creatinine Estimated GFR BUN/Creatinine Ratio Glucose 846 H* Calcium Total Bilirubin AST ALT Alkaline Phosphatase Total Protein Albumin Globulin Albumin/Globulin Ratio Lipase Urine Color Yellow Urine Appearance Clear Urine pH 7.0 Ur Specific [place] <=1.005 Urine Protein Negative Urine Glucose (UA) 3+ Urine Ketones Negative Urine Occult Blood Trace-lysed Urine Nitrate Negative Urine Bilirubin Negative Urine Urobilinogen 0.2 Ur Leukocyte Esterase Negative Urine RBC 0-1/hpf Urine WBC 1-5/hpf Ur Squamous Epith Cells 0-1 /hpf Urine Bacteria None seen Ur Culture Indicated? Cult not indicated Micro UA Comment Not Reportable Urine Test Negative Nasal Screen MRSA (PCR) 10/29/17 10/29/17 10/30/17 21:55 22:08 04:42 WBC RBC Hgb Hct MCV MCH MCHC RDW Plt Count Neut % (Auto) Lymph % (Auto) [place] % (Auto) Eos % (Auto) Baso % (Auto) Neut # (Auto) VBG pH VBG pCO2 VBG pO2 VBG HCO3 VBG Total CO2 VBG O2 Saturation VBG Base Excess Sodium 142 D 139 Potassium 3.6 D 3.4 Chloride 107 107 Carbon Dioxide 24 25 BUN 10 Creatinine 0.60 Estimated GFR > 60.0 BUN/Creatinine Ratio 16.7 Glucose 115 H D 117 H Calcium 8.5 Total Bilirubin AST ALT Alkaline Phosphatase Total Protein Albumin Globulin Albumin/Globulin Ratio Lipase Urine Color Urine Appearance Urine pH Ur Specific [place] Urine Protein Urine Glucose (UA) Urine Ketones Urine Occult Blood Urine Nitrate Urine Bilirubin Urine Urobilinogen Ur Leukocyte Esterase Urine RBC Urine WBC Ur Squamous Epith Cells Urine Bacteria Ur Culture Indicated? Micro UA Comment Urine Test Nasal Screen MRSA (PCR) Negative for mrsa Discharge Plan Discharge Plan Discharge Problem: Hyperglycemia Patient Disposition: Home, Self-Care Provider Discharge Instructions Diet: Diet as Tolerated Diet comment: low carb diet Activity: as tolerated Discharge Data Primary Care Provider: Hola Hernandez Attending Provider: Yadira Granados Admit Date/Time: 10/29/17 19:31 Quality VTE Deep Vein Thrombosis/Pulmonary Embolism Present on Admission: No
--- NOTE | 2017-10-30 09:48 | CM.DANOTE ---
Patient is a 27 year old female who was admitted on 10/29/17 for Diabetic issues to ICU. Patient has [employer] for insurance and her PCP is Dr. Oreilly. EMR was reviewed. Per MD, pt did well with IV hydration and insulin drip. Per RN, pt has become more aware of her newer diabetes dx since her last admit in 2016 and seems to be managing quite well and no current d/c concerns. Pt resides in [place] with her family and has had supportive significant other bedside. Pt is independent with ADL's at baseline and drives. Pt sleeping soundly and SW could not wake up pt to assess but no needs identified. Per MD, pt is medically stable to d/c home today. Plan: Patient to d/c home today via family POV. No SW needs at this time. RAYMOND Roman Discharge Planning/Care Management CM Discharge Assessment Start: 10/30/17 09:46 Freq: Status: Active Protocol: Document 10/30/17 09:46 BF (Rec: 10/30/17 09:48 BF [id number]) Discharge Planning Assessment Assigned Home Health Registered Nurse RAYMOND History Provided By Patient Medical Record Has Patient been admitted in last 30 No days? Is this patient on Medicare? No Is the admit diagnosis the same? No Prior Living Arrangements House Household Members family Type of transporation used prior to Drives own vehicle admit Comment Independent at baseline Independent with ADL's Yes Is patient alert and oriented? Yes Caregiver for Another No Referrals Initiated None needed Discharge Plan Home Transportation Arrangement Significant other can provide transport at d/c. Review Status In Process Next Review Type Discharge Review
[2017-10-30] MEDS: POTASSIUM CHLORIDE 20 MEQ TAB 40 MEQ PO (10:24)
[2017-10-30] MEDS: INSULIN ASPART 100 UNIT/ML INSULN PEN SUBCUT (10:50)
--- NOTE | 2017-10-30 10:52 | PC.NURSE ---
PT PREPARING FOR D/C LATER THIS DATE OFF INSULIN GTT AND STATUS IMPROVING GREATLY- GIVEN 2U NOVALOG PER PT REQUEST SHE COUNTS CARBS AN OUTPT
== END 2017-10-30 11:28 | disposition home or self-care (01) ==
LOC: ED 17:22 → ICU 19:56
PROVIDERS: Admitting Provider Internal Medicine; Emergency Provider Internal Medicine; Family Provider Internal Medicine; PCP Internal Medicine; Visit Provider Internal Medicine
DX: E10.65 Type 1 diabetes mellitus with hyperglycemia (principal); E87.0 Hyperosmolality and hypernatremia
CPT/HCPCS: 36415; 36591; 80048; 80051; 80053; 81001; 81025; 82805; 82947; 82962; 83690; 85025; 87797; 96361; 96374; 99283; 99285; G0378; J2405

== ENCOUNTER 2017-12-14 16:18 | Emergency (ER) | payer OTHER, MEDICAID, SELFPAY ==
[2017-12-14 16:26] VITALS: BP 110/75; PULSE 99; RESP 14; TEMP 36.6; O2SAT 100; BMI 20.7
--- NOTE | 2017-12-14 17:09 | ED_ITS ---
HPI - URI/Sore Throat <Sierra Villalobos PA-C - Last Filed: 12/14/17 21:48> General Chief Complaint: Upper Respiratory Symptoms Stated Complaint: SORE THROAT HARD TIME SWALLOWING Time Seen by Provider: 12/14/17 16:33 Source: patient Mode of arrival: ambulatory Limitations: no limitations History of Present Illness HPI Narrative: This 27-year-old female comes in today due to sore throat. She states that this started yesterday, her throat march and very hard to swallow food and fluids due to the pain. Her throat does not feel blocked. She denies any fever, chills, or sweats. She states that she does have some runny nose and a slight cough. She denies any dyspnea or wheeze. She has not had headache. She states that she has had a bit of right earache and ear congestion, none on the left. She denies any known exposures except her brother who recently had a sinus infection. She denies any rash or other new symptoms on systems review. States blood sugars are stable Related Data Home Medications Medication Instructions Recorded Confirmed ACETAMINOPHEN 650 mg PO Q4HP PRN #0 03/03/16 10/29/17 Novolog Flexpen U-100 Insulin 5 - 15 units SUB-Q TID 10/29/17 10/29/17 Tresiba FlexTouch U-100 32 units SUB-Q DAILY 10/29/17 10/29/17 Allergies Allergy/AdvReac Type Severity Reaction Status Date / Time abdalla [ABDALLA] Allergy Intermediate Hives, Verified 10/29/17 17:59 pruritus iodine [IODINE] Allergy Intermediate rash, itchy Verified 10/29/17 17:59 morphine Allergy Intermediate Difficulty Verified 10/29/17 20:20 Breathing shellfish derived Allergy Intermediate rash Verified 10/29/17 17:59 [SHELLFISH DERIVED] adhesive [ADHESIVE] Allergy Unknown tape Verified 10/29/17 17:59 latex [LATEX] Allergy Unknown Verified 10/29/17 17:59 Review of Systems <Sierra Villalobos PA-C - Last Filed: 12/14/17 21:48> Review of Systems All systems reviewed & are unremarkable except as noted in HPI and below Exam <SCOTTY Reece Last Filed: 12/14/17 21:48> Narrative Exam Narrative: GENERAL APPEARANCE: Patient sitting comfortably, in no distress. HEAD: No sinus TTP. EYES: PERRL, EOMI. EARS: Normal auditory canals, TMS intact with normal light reflexes. ORAL CAVITY: Normal oropharynx. THROAT: Erythematous without exudate NECK/THYROID: Neck supple, full range of motion, no submandibular nodes, bilateral anterior cervical nodes and a few small posterior nodes LUNGS: Clear to auscultation bilaterally, no cough on exam. HEART: RRR without murmur, nl S1, S2, no S3 or S4. DERMATOLOGIC: No exanthem Initial Vital Signs Initial Vital Signs: Vital Signs Temperature 97.9 F 12/14/17 16:26 Pulse Rate 99 H 12/14/17 16:26 Respiratory Rate 14 12/14/17 16:26 Blood Pressure 110/75 12/14/17 16:26 Pulse Oximetry 100 12/14/17 16:26 <DO Kaitlin Lucero Last Filed: 12/15/17 07:04> Initial Vital Signs Initial Vital Signs: Vital Signs Temperature 97.9 F 12/14/17 16:26 Pulse Rate 99 H 12/14/17 16:26 Respiratory Rate 14 12/14/17 16:26 Blood Pressure 110/75 12/14/17 16:26 Pulse Oximetry 100 12/14/17 16:26 Course <Sierra Villalobos PA-C - Last Filed: 12/14/17 21:48> Orders Ordered: Discontinued Medications Lidocaine HCl (Viscous Lidocaine 2%) 15 ml PO NOW ONE Stop: 12/14/17 17:24 Last Admin: 12/14/17 17:38 Dose: 15 ml Vital Signs - 8 hr 12/14/17 16:26 12/14/17 18:23 Temperature 97.9 F 98.5 F Pulse Rate 99 H 78 Respiratory Rate 14 14 Blood Pressure 110/75 Blood Pressure [Left Arm] 110/72 Pulse Oximetry 100 99 <DO Kaitlin Lucero Last Filed: 12/15/17 07:04> Orders Ordered: Discontinued Medications Lidocaine HCl (Viscous Lidocaine 2%) 15 ml PO NOW ONE Stop: 12/14/17 17:24 Last Admin: 12/14/17 17:38 Dose: 15 ml Vital Signs - 8 hr 12/14/17 16:26 12/14/17 18:23 Temperature 97.9 F 98.5 F Pulse Rate 99 H 78 Respiratory Rate 14 14 Blood Pressure 110/75 Blood Pressure [Left Arm] 110/72 Pulse Oximetry 100 99 MDM - URI/Sore Throat <Sierra Villalobos PA-C - Last Filed: 12/14/17 21:48> Lab Data Attestation: I reviewed the patient's lab results. Lab Results 12/14/17 Range/Units 16:40 Group A Strep (PCR) Negative <Chandu Peters DO - Last Filed: 12/15/17 07:04> Lab Data Lab Results 12/14/17 Range/Units 16:40 Group A Strep (PCR) Negative Discharge Plan Departure Patient Disposition: Home Clinical Impression: Acute viral pharyngitis Discharge Date/Time: 12/14/17 18:25 Interventions: ED Discharge Assessment Last Done: 12/14/17 18:24 Instructions: DI for Pharyngitis/Tonsillopharyngitis -- Adult Activity Restrictions/Additional Instructions: Please return if you have acutely worse symptoms as we talked about. Otherwise , please take Tylenol and you can you sugar free [id number] sprays or lozenges as needed. Typically, these viral upper respiratory infections will run their course in 1-2 weeks. You should see your PCP if you are not feeling better in the next week or so Prescriptions: No Action ACETAMINOPHEN 650 mg PO Q4HP PRN (Reason: Pain (Scale Score 1-3)) Qty: 0 RF: 0 Tresiba FlexTouch U-100 32 units Sub-Q DAILY RF: 0 Novolog Flexpen U-100 Insulin 5 - 15 units Sub-Q TID RF: 0 Referrals: Hola Hernandez MD [Primary Care Provider] - <Chandu Peters DO - Last Filed: 12/15/17 07:04> Cosign ED Attending Cosshaheedature Attestation: I was available for consultation during this patient's emergency department encounter
[2017-12-14 17:12] LABS: Strep Grp A by PCR Rapid Negative
[2017-12-14] MEDS: LIDOCAINE VISCOUS 2% 15 ML SOLUTION PO (17:38)
[2017-12-14 18:23] VITALS: BP 110/72; PULSE 78; RESP 14; TEMP 36.9; O2SAT 99
== END 2017-12-14 18:25 | disposition home or self-care (01) ==
PROVIDERS: Emergency Provider Internal Medicine; Family Provider Internal Medicine; PCP Internal Medicine
DX: J02.8 Acute pharyngitis due to other specified organisms (principal)
CPT/HCPCS: 87651; 99282; 99283

== ENCOUNTER 2018-02-03 19:17 | Emergency (ER) | payer OTHER, MEDICAID, SELFPAY ==
[2018-02-03] VITALS (7 sets, daily range): BP systolic 101–148; BP diastolic 62–80; PULSE 76–89; RESP 8–17; TEMP 36.8; O2SAT 96–100; BMI 19.8
[2018-02-03] MEDS: SODIUM CHLORIDE 0.9% 1,000 ML 1000 ML IV ×2 (20:47→21:20)
[2018-02-03 20:52] LABS: Add Manual Diff / Slide Review NO; Basophils Percent Auto 0.5 % (0-2); Hematocrit 39.7 % (36-46); Hemoglobin 12.9 g/dL (12.0-16.0); Lymphocytes Percent Auto 18.5 % (25-40); Mean Corpuscular HGB Conc 32.6 % (30-36); Mean Corpuscular Hemoglobin 30.2 PG (26-34); Mean Corpuscular Volume 92.6 fL (80-100); Monocytes Percent Auto 6.1 % (3-14); Neutrophils Absolute Auto 8200 /uL (3000-5900); Neutrophils Percent Auto 73.9 % (50-75); Platelet Count 328 X10^3/uL (150-400); Red Blood Cell Count 4.28 X10^6/uL (4.0-5.2); Red Cell Distribution Width 12.8 % (11.6-14.8); White Blood Cell Count 11.1 X10^3/uL (4.5-11.0)
[2018-02-03 21:03] LABS: Alanine Aminotransferase 27 IU/L (9-52); Albumin Globulin Ratio 1.7 (1.0-2.8); Alkaline Phosphatase 201 U/L (38-126); Aspartate Aminotransferase 27 IU/L (14-36); BUN Creatinine Ratio 35.7 (6-22); Bilirubin Total 0.6 mg/dL (0.2-1.3); Blood Urea Nitrogen 25 mg/dL (7-17); Calcium 9.1 mg/dL (8.4-10.2); Carbon Dioxide 21 mmol/L (22-32); Chloride 94 mmol/L (98-107); Estimated Glomerular Filt Rate > 60.0 mL/min (>60); Globulin 2.4 g/dL (1.7-4.1); HEMOLYSIS 44 (0-50); Lactate (Lactic Acid) 0.8 mmol/L (0.7-2.1); Potassium 5.1 mmol/L (3.4-5.1); Sodium 129 mmol/L (137-145); Total Protein 6.4 g/dL (6.3-8.2)
[2018-02-03 21:04] LABS: HCO3 VBG 23 mmol/L (24-28); PCO2 VBG 41.3 mmHg (45-50); PO2 VBG 39 mmHg (35-45); Total CO2 VBG 24 mmol/L (24-29); pH VBG 7.35 (7.31-7.41)
[2018-02-03 21:05] LABS: Oxygen Saturation VBG 71 % (70-75)
[2018-02-03 21:06] LABS: Ketones (Beta-Hydroxybutyrate) 3.37 mmol/L (<0.27)
[2018-02-03 21:13] LABS: Glucose 781 mg/dL (70-100)
[2018-02-03 21:27] LABS: Procalcitonin < 0.05 ng/mL (<0.5)
--- NOTE | 2018-02-03 21:41 | ED_ITS ---
HPI - Nausea/Vomiting/Diarrhea General Chief complaint: Nausea/Vomiting/Diarrhea Stated complaint: DEHYDRATION,NAUSEA Time Seen by Provider: 02/03/18 21:16 Source: patient Mode of arrival: ambulatory Limitations: no limitations History of Present Illness HPI Narrative: patient is a 28-year-old female presents with nausea and some mild abdominal pain. She is a type 1 diabetic. She states that she has not missed any insulin doses she started feeling like some chest discomfort. She denies any cough or shortness of breath or pleuritic pain. She has not had fever or chills. She was slightly nauseated but got some Zofran no vomiting. No significant abdominal pain. Accu-Chek in the ED is more than 500. MD complaint: nausea and vomiting Related Data Home Medications Medication Instructions Recorded Confirmed ACETAMINOPHEN 650 mg PO Q4HP PRN #0 03/03/16 10/29/17 Novolog Flexpen U-100 Insulin 5 - 15 units SUB-Q TID 10/29/17 10/29/17 Tresiba FlexTouch U-100 32 units SUB-Q DAILY 10/29/17 10/29/17 Allergies Allergy/AdvReac Type Severity Reaction Status Date / Time arredondo [ARREDONDO] Allergy Intermediate Hives, Verified 02/03/18 19:43 pruritus iodine [IODINE] Allergy Intermediate rash, itchy Verified 02/03/18 19:43 morphine Allergy Intermediate Difficulty Verified 02/03/18 19:43 Breathing shellfish derived Allergy Intermediate rash Verified 02/03/18 19:43 [SHELLFISH DERIVED] adhesive [ADHESIVE] Allergy Unknown tape Verified 02/03/18 19:43 latex [LATEX] Allergy Unknown Verified 02/03/18 19:43 Review of Systems Review of Systems All systems reviewed & are unremarkable except as noted in HPI and below Constitutional Denies chills, Denies fever(s), Denies lethargy and Denies weakness Cardiovascular Reports chest pain, Denies irregular heart rhythm, Denies lightheadedness, Denies palpitations and Denies orthopnea Musculoskeletal Denies back pain, Denies muscle weakness, Denies numbness and Denies tingling Neurologic Denies numbness, Denies tingling and Denies weakness Endocrine Denies palpitations PFSH Social History household members: family Smoking Status: Never smoker alcohol intake: never Exam Initial Vital Signs Initial Vital Signs: Vital Signs Temperature 98.3 F 02/03/18 19:40 Pulse Rate 86 02/03/18 19:40 Respiratory Rate 14 02/03/18 19:40 Blood Pressure 119/80 02/03/18 19:40 Pulse Oximetry 99 02/03/18 19:40 GENERAL: Awake alert oriented cooperative nontoxic HEENT: Head atraumatic,EOMI, pupils reactive, face symmetric CARDIOVASCULAR: Regular rate and rhythm without murmurs, rubs or gallops. RESPIRATORY: Breath sounds equal bilaterally, no wheezes rales or rhonchi. ABDOMEN: Soft, nontender. Normoactive bowel sounds all 4 quadrants. No guarding or rebound. EXTREMITIES: Normal range of motion, no clubbing or edema. Neurovascularly intact NEUROLOGICAL: Alert and oriented x4.Normal gait and speech. Cranial nerves II through XII grossly intact. SKIN: Warm, dry, no laceration, no petechiae, no rashes or lesions. Course Orders Ordered: ED Orders 02/03/18 20:38 Venous Blood Gas Stat 02/03/18 20:40 Complete Blood Count AUTO DIFF Stat Comprehensive Metabolic Panel Stat Ketones (Beta-Hydroxybutyrate) Stat Lactate (Lactic Acid) Stat Procalcitonin Stat 02/03/18 21:41 XR chest 2V Stat 02/03/18 21:42 EKG-12 Lead Stat 02/03/18 23:03 Electrolytes Stat Discontinued Medications Sodium Chloride (Normal Saline 0.9%) 1,000 mls @ 1,000 mls/hr IV BOLUS ONE Stop: 02/03/18 21:31 Last Infusion: 02/03/18 21:20 Dose: 0 mls/hr Admin: 02/03/18 20:47 Dose: 1,000 mls/hr Sodium Chloride (Normal Saline 0.9%) 1,000 mls @ 1,000 mls/hr IV BOLUS ONE Stop: 02/03/18 22:16 Last Infusion: 02/03/18 22:55 Dose: 0 mls/hr Admin: 02/03/18 21:20 Dose: 1,000 mls/hr Insulin Human Regular (Humulin R) 10 unit SUBCUT NOW ONE Stop: 02/03/18 21:43 Last Admin: 02/03/18 22:15 Dose: 10 unit Vital Signs - 8 hr 02/03/18 21:00 02/03/18 21:30 02/03/18 22:00 Pulse Rate 83 86 82 Respiratory Rate 8 L 15 16 Blood Pressure [Left Arm] 115/77 113/68 115/79 Pulse Oximetry 99 99 100 02/03/18 22:30 02/03/18 22:38 02/03/18 23:30 Pulse Rate 80 76 89 Respiratory Rate 16 17 17 Blood Pressure [Left Arm] 116/80 148/73 H 101/62 Pulse Oximetry 100 96 99 02/04/18 00:20 Pulse Rate 92 H Respiratory Rate 18 Blood Pressure [Left Arm] 116/68 Pulse Oximetry 100 MDM - Nausea/Vomiting/Diarrhea Lab Data Attestation: I reviewed the patient's lab results. Anion gap 14 Repeat anion gap=14 Result diagrams: 02/03/18 20:40 02/03/18 23:03 Lab Results 02/03/18 02/03/18 02/03/18 Range/Units 20:38 20:40 20:40 WBC 11.1 H (4.5-11.0) X10^3/uL RBC 4.28 (4.0-5.2) X10^6/uL Hgb 12.9 (12.0-16.0) g/dL Hct 39.7 (36-46) % MCV 92.6 (80-100) fL MCH 30.2 (26-34) PG MCHC 32.6 (30-36) % RDW 12.8 (11.6-14.8) % Plt Count 328 (150-400) X10^3/uL Neut % (Auto) 73.9 (50-75) % Lymph % (Auto) 18.5 L (25-40) % [place] % (Auto) 6.1 (3-14) % Eos % (Auto) 1.0 L (2-4) % Baso % (Auto) 0.5 (0-2) % Neut # (Auto) 8200 H (4092-3325) /uL VBG pH 7.35 (7.31-7.41) VBG pCO2 41.3 L (45-50) mmHg VBG pO2 39 (35-45) mmHg VBG HCO3 23 L (24-28) mmol/L VBG Total CO2 24 (24-29) mmol/L VBG O2 Saturation 71 (70-75) % VBG Base Excess -3.0 L (0-4) mmol/L Sodium (137-145) mmol/L Potassium (3.4-5.1) mmol/L Chloride (98-107) mmol/L Carbon Dioxide (22-32) mmol/L BUN (7-17) mg/dL Creatinine (0.52-1.04) mg/dL Estimated GFR (>60) mL/min BUN/Creatinine Ratio (6-22) Glucose (70-100) mg/dL Lactate (0.7-2.1) mmol/L Calcium (8.4-10.2) mg/dL Total Bilirubin (0.2-1.3) mg/dL AST (14-36) IU/L ALT (9-52) IU/L Alkaline Phosphatase (38-126) U/L Total Protein (6.3-8.2) g/dL Albumin (3.5-5.0) g/dL Globulin (1.7-4.1) g/dL Albumin/Globulin Ratio (1.0-2.8) Procalcitonin < 0.05 (<0.5) ng/mL Ketones (<0.27) mmol/L 02/03/18 02/03/18 02/03/18 Range/Units 20:40 20:40 23:03 WBC (4.5-11.0) X10^3/uL RBC (4.0-5.2) X10^6/uL Hgb (12.0-16.0) g/dL Hct (36-46) % MCV (80-100) fL MCH (26-34) PG MCHC (30-36) % RDW (11.6-14.8) % Plt Count (150-400) X10^3/uL Neut % (Auto) (50-75) % Lymph % (Auto) (25-40) % [place] % (Auto) (3-14) % Eos % (Auto) (2-4) % Baso % (Auto) (0-2) % Neut # (Auto) (4484-8176) /uL VBG pH (7.31-7.41) VBG pCO2 (45-50) mmHg VBG pO2 (35-45) mmHg VBG HCO3 (24-28) mmol/L VBG Total CO2 (24-29) mmol/L VBG O2 Saturation (70-75) % VBG Base Excess (0-4) mmol/L Sodium 129 L 135 L (137-145) mmol/L Potassium 5.1 3.7 D (3.4-5.1) mmol/L Chloride 94 L 101 (98-107) mmol/L Carbon Dioxide 21 L 20 L (22-32) mmol/L BUN 25 H (7-17) mg/dL Creatinine 0.70 (0.52-1.04) mg/dL Estimated GFR > 60.0 (>60) mL/min BUN/Creatinine Ratio 35.7 H (6-22) Glucose 781 H* (70-100) mg/dL Lactate 0.8 (0.7-2.1) mmol/L Calcium 9.1 (8.4-10.2) mg/dL Total Bilirubin 0.6 (0.2-1.3) mg/dL AST 27 (14-36) IU/L ALT 27 (9-52) IU/L Alkaline Phosphatase 201 H (38-126) U/L Total Protein 6.4 (6.3-8.2) g/dL Albumin 4.0 (3.5-5.0) g/dL Globulin 2.4 (1.7-4.1) g/dL Albumin/Globulin Ratio 1.7 (1.0-2.8) Procalcitonin (<0.5) ng/mL Ketones 3.37 H (<0.27) mmol/L Point of Care Testing Test Results Negative Glucose POC 499 Urine Dip Bedside Urine Glucose 1000 mg/dl Bedside Urine Bilirubin - Negative Bedside Urine Ketone ++ 40 Urine Specific [place] 1.015 Bedside Urine Occult Blood - Negative Bedside Urine pH 6.0 Bedside Urine Protein - Negative Bedside Urine Urobilinogen - Negative Bedside Urine Nitrite - Negative Bedside Urine Leukocytes - Negative Esterase Imaging Data Chest x-ray: Radiologist's impression: PROCEDURE: XR CHEST 2V INDICATIONS: chest pain TECHNIQUE: 2 views of the chest were acquired. COMPARISON: None. FINDINGS: Surgical changes and devices: None. Lungs and pleura: No pleural effusions or pneumothorax. Lungs are clear. Mediastinum: Mediastinal contours are normal. Heart size is normal. Bones and chest wall: No suspicious bony abnormalities. Soft tissues appear unremarkable. IMPRESSION: No acute cardiopulmonary findings. Dictated by: Yeny Clements M.D. on 02/03/2018 at 21:58 ECG Data Attestation: I personally reviewed and interpreted this ECG as follows: Prior ECG tracings: not available for review Interpretation: Sinus rhythm rate 83 artifact noted No ischemia or ST changes MDM Narrative Medical decision making narrative: Patient is not acidotic she does have some mild ketones. She is given 2 L IV fluids and insulin glucose has decreased appropriately. She is tolerating food and liquid. Unknown cause of elevated glucose today. I suspect possible noncompliance. No sign of infection. No anion gap mode no sign of DKA. Discharge Plan Departure Patient Disposition: Home Clinical Impression: Hyperglycemia Discharge Date/Time: 02/04/18 00:31 Interventions: ED Discharge Assessment Last Done: 02/04/18 00:29 Instructions: DI for Hyperglycemia -- Adult Activity Restrictions/Additional Instructions: *You have been diagnosed with hyperglycemia *What to do: No sign of DKA or infection, eat regularly while taking insulin *Continue to take medications as directed *Follow up with your primary care provider in 2-3 days *Return to ER if you should have increasing abdominal pain, persistent vomiting , inability to tolerate food or any new, worsening or concerning symptoms Prescriptions: No Action ACETAMINOPHEN 650 mg PO Q4HP PRN (Reason: Pain (Scale Score 1-3)) Qty: 0 RF: 0 Tresiba FlexTouch U-100 32 units Sub-Q DAILY RF: 0 Novolog Flexpen U-100 Insulin 5 - 15 units Sub-Q TID RF: 0 Referrals: Hola Hernandez MD [Primary Care Provider] -
[2018-02-03] MEDS: INSULIN REGULAR 100 UNIT/ML 3 ML VIAL 10 UNIT SUBCUT (22:15)
[2018-02-03 23:23] LABS: Carbon Dioxide 20 mmol/L (22-32); Chloride 101 mmol/L (98-107); HEMOLYSIS < 15 (0-50); Potassium 3.7 mmol/L (3.4-5.1); Sodium 135 mmol/L (137-145)
[2018-02-04 00:20] VITALS: BP 116/68; PULSE 92; RESP 18; O2SAT 100
== END 2018-02-04 00:31 | disposition home or self-care (01) ==
PROVIDERS: Emergency Provider Emergency Medicine; Family Provider Internal Medicine; PCP Internal Medicine
DX: R73.9 Hyperglycemia, unspecified (principal)
CPT/HCPCS: 36415; 36591; 71046; 80051; 80053; 81003; 81025; 82009; 82805; 82962; 83605; 84145; 85025; 93005; 93010; 96360; 96361; 99284; 99285

== ENCOUNTER 2018-04-15 22:09 | Inpatient (IN) | payer MEDICAID, OTHER, SELFPAY ==
[2018-04-15 22:18] VITALS: BP 151/96; PULSE 124; RESP 30; TEMP 36.8; O2SAT 100; BMI 22.6
--- NOTE | 2018-04-15 22:37 | DI.RAD.S_ITS ---
PROCEDURE: XR CHEST 1V INDICATIONS: likely DKA TECHNIQUE: One view of the chest was acquired. COMPARISON: [facility], CR, XR CHEST 2V, 02/03/2018, 21:18. FINDINGS: Surgical changes and devices: None. Lungs and pleura: No pleural effusions or pneumothorax. Lungs are clear. Mediastinum: Mediastinal contours appear normal. Heart size is normal. Bones and chest wall: No suspicious bony lesions. Overlying soft tissues appear unremarkable. IMPRESSION: No acute cardiopulmonary disease process. Dictated by: Arleth Polanco MD, PhD on 04/16/2018 at 8:02 Approved by: Arleth Polanco MD, PhD on 04/16/2018 at 8:03
[2018-04-15] MEDS: SODIUM CHLORIDE 0.9% 1,000 ML 1000 ML IV (22:40)
[2018-04-15 22:43] VITALS: BP 135/81; PULSE 128; RESP 27; O2SAT 100
[2018-04-15] MEDS: HYDROMORPHONE 1 MG INJ 0.5 MG IV (22:55)
[2018-04-15 22:58] LABS: Add Manual Diff / Slide Review NO; Basophils Percent Auto 0.6 % (0-2); Hematocrit 46.5 % (36-46); Hemoglobin 14.9 g/dL (12.0-16.0); Lymphocytes Percent Auto 7.5 % (25-40); Mean Corpuscular Hemoglobin 30.5 PG (26-34); Mean Corpuscular Volume 95.1 fL (80-100); Monocytes Percent Auto 6.5 % (3-14); Neutrophils Absolute Auto 21300 /uL (1500-7000); Neutrophils Percent Auto 85.4 % (50-75); Platelet Count 440 X10^3/uL (150-400); Red Blood Cell Count 4.89 X10^6/uL (4.0-5.2); Red Cell Distribution Width 13.4 % (11.6-14.8)
[2018-04-15 23:04] VITALS: BP 131/89; PULSE 127; RESP 21; O2SAT 96
[2018-04-15 23:05] LABS: Lactate (Lactic Acid) 1.2 mmol/L (0.7-2.1)
[2018-04-15 23:08] LABS: Alanine Aminotransferase 20 IU/L (9-52); Alkaline Phosphatase 188 U/L (38-126); Aspartate Aminotransferase 17 IU/L (14-36); BUN Creatinine Ratio 14.5 (6-22); Bilirubin Total 0.3 mg/dL (0.2-1.3); Blood Urea Nitrogen 16 mg/dL (7-17); Calcium 9.3 mg/dL (8.4-10.2); Chloride 103 mmol/L (98-107); Estimated Glomerular Filt Rate > 60.0 mL/min (>60); Globulin 3.8 g/dL (1.7-4.1); HEMOLYSIS < 15 (0-50); Potassium 4.8 mmol/L (3.4-5.1); Sodium 141 mmol/L (137-145); Total Protein 8.8 g/dL (6.3-8.2)
[2018-04-15 23:09] LABS: PCO2 VBG 16.2 mmHg (45-50); pH VBG 6.97 (7.33-7.43)
[2018-04-15 23:10] LABS: HCO3 VBG 4 mmol/L (23-28); PO2 VBG 53 mmHg (35-45); Total CO2 VBG < 5 mmol/L (24-29)
[2018-04-15 23:11] LABS: Oxygen Saturation VBG 68 % (70-75)
[2018-04-15 23:16] LABS: Glucose 459 mg/dL (70-100)
[2018-04-15 23:29] LABS: Procalcitonin 0.71 ng/mL (<0.5)
--- NOTE | 2018-04-15 23:42 | ED.ABDPAIN ---
HPI - Abdominal Pain General Chief Complaint: Diabetic Problem Stated Complaint: trouble breathing Time Seen by Provider: 04/15/18 22:24 Source: patient Mode of arrival: ambulatory Limitations: no limitations History of Present Illness HPI narrative: 28-year-old female, nonsmoker with history of type 1 diabetes and frequent episodes of DKA presents with few hours of nausea, generalized abdominal pain and some shortness of breath. These are her typical symptoms when presenting with DKA. She denies any prodromal symptoms prior to today and states she has not been ill. Furthermore, she denies any change in her diabetic regimen. MD complaint: abdominal pain Onset (ago): hour(s) Pain Consistency: constant Location: diffuse Severity: moderate Quality: cramping Radiation: none Migration to: no migration Relieving factors: nothing Exacerbating factors: nothing Associated symptoms: denies other symptoms Related Data Home Medications Medication Instructions Recorded Confirmed ACETAMINOPHEN 650 mg PO Q4HP PRN #0 03/03/16 10/29/17 Novolog Flexpen U-100 Insulin 5 - 15 units SUB-Q TID 10/29/17 10/29/17 Tresiba FlexTouch U-100 32 units SUB-Q DAILY 10/29/17 10/29/17 Allergies Allergy/AdvReac Type Severity Reaction Status Date / Time arredondo [ARREDONDO] Allergy Intermediate Hives, Verified 02/03/18 19:43 pruritus iodine [IODINE] Allergy Intermediate rash, itchy Verified 02/03/18 19:43 morphine Allergy Intermediate Difficulty Verified 02/03/18 19:43 Breathing shellfish derived Allergy Intermediate rash Verified 02/03/18 19:43 [SHELLFISH DERIVED] adhesive [ADHESIVE] Allergy Unknown tape Verified 02/03/18 19:43 latex [LATEX] Allergy Unknown Verified 02/03/18 19:43 Review of Systems Review of Systems All systems reviewed & are unremarkable except as noted in HPI and below Constitutional Denies chills, Denies fever(s), Denies lethargy and Denies weakness Eyes Denies change in vision, Denies eye discharge, Denies irritation and Denies loss of vision ENT Ears, Nose, Mouth, and Throat: Denies change in voice, Denies neck pain and Denies sore throat Cardiovascular Denies chest pain, Denies irregular heart rhythm, Denies lightheadedness, Denies palpitations, Reports dyspnea, Denies dyspnea on exertion and Denies orthopnea Respiratory Denies cough, Reports dyspnea, Denies dyspnea on exertion and Denies wheezing Gastrointestinal Gastrointestinal: Reports abdominal pain, Denies change in bowel habits, Denies diarrhea, Denies nausea and Denies vomiting Genitourinary Denies hematuria, Denies flank pain, Denies urinary incontinence and Denies urinary urgency Musculoskeletal Denies neck pain Integumentary/Breasts Denies pruritus, Denies erythema, Denies rash and Denies wounds Neurologic Denies confusion, Denies loss of vision and Denies weakness Psychiatric Denies anxiety, Denies confusion, Denies depression, Denies homicidal ideation and Denies suicidal ideation Endocrine Denies palpitations Hematologic/Lymphatic Denies easy bruising Allergic/Immunologic Denies wheezing [facility] Medical History Migraine headache (Chronic) Type 1 diabetes mellitus (Chronic) DKA (diabetic ketoacidoses) (Resolved) History of pyelonephritis (Resolved) Nephrolithiasis (Resolved) Surgical History History of ureter stent (Resolved) Social History household members: family Smoking Status: Never smoker alcohol intake: never Exam Narrative Exam Narrative: GENERAL: 28-year-old, ill-appearing female, appears to be in distress HEAD: Atraumatic. Normocephalic. No temporal or scalp tenderness. EYES: Pupils equal round and reactive. Extraocular motions intact. No scleral icterus. No injection or drainage. ENT: Dry mucous membranes Nose without bleeding, purulent drainage or septal hematoma. Throat without erythema, tonsillar hypertrophy or exudate. Uvula midline. Airway patent. NECK: Trachea midline. No JVD or lymphadenopathy. Supple, nontender, no meningeal signs. CARDIOVASCULAR: Tachycardic but regular rhythm without murmurs, gallops, or rubs. RESPIRATORY: Clear to auscultation. Breath sounds equal bilaterally. No wheezes, rales, or rhonchi. GASTROINTESTINAL: Abdomen soft, with generalized tenderness, nondistended. No hepato-splenomegaly, or palpable masses. No guarding. EXTREMITIES: No clubbing, cyanosis, or edema. No joint tenderness, effusion, or edema noted. BACK: Nontender without deformity or crepitance. No flank tenderness. NEURO: AOx3. SKIN: No rash or erythema. Initial Vital Signs Initial Vital Signs: Vital Signs Temperature 98.3 F 04/15/18 22:18 Pulse Rate 124 H 04/15/18 22:18 Respiratory Rate 30 H 04/15/18 22:18 Blood Pressure 151/96 H 04/15/18 22:18 Pulse Oximetry 100 04/15/18 22:18 Course Orders Ordered: ED Orders 04/15/18 22:37 XR chest 1V Stat EKG-12 Lead Stat 04/15/18 22:43 Complete Blood Count AUTO DIFF Stat Comprehensive Metabolic Panel Stat Ketones (Beta-Hydroxybutyrate) Stat Lactate (Lactic Acid) Stat Magnesium Stat Phosphorous Stat Procalcitonin Stat Venous Blood Gas Stat 04/15/18 22:48 VBG [Venous Blood Gas] Stat 04/15/18 23:30 Blood Culture Stat Insulin Human Regular 100 unit (/ Sodium Chloride) 100 mls @ 6 mls/hr IV TITRATE BLAISE; Protocol Last Admin: 04/15/18 23:48 Dose: 6 ml/hr, 6 mls/hr Discontinued Medications Hydromorphone HCl (Dilaudid) 0.5 mg IV NOW ONE Stop: 04/15/18 22:53 Last Admin: 04/15/18 22:55 Dose: 0.5 mg Sodium Chloride (Normal Saline 0.9%) 1,000 mls @ 1,000 mls/hr IV BOLUS ONE Stop: 04/15/18 23:35 Last Admin: 04/15/18 22:40 Dose: 1,000 mls/hr Ondansetron HCl (Zofran) 4 mg IV NOW ONE Stop: 04/15/18 22:37 Last Admin: 04/15/18 22:51 Dose: Not Given Consultations Consultation #1: hospitalist happy to accept Vital Signs - 8 hr 04/15/18 22:18 04/15/18 22:43 04/15/18 23:04 Temperature 98.3 F Pulse Rate 124 H 128 H 127 H Respiratory Rate 30 H 27 H 21 Blood Pressure 151/96 H Blood Pressure [Left Arm] 135/81 131/89 Pulse Oximetry 100 100 96 MDM - Abdominal Pain Lab Data Result diagrams: 04/15/18 22:43 04/15/18 22:43 Lab Results 04/15/18 04/15/18 04/15/18 Range/Units 22:43 22:43 22:43 WBC 25.0 H (4.5-11.0) X10^3/uL RBC 4.89 (4.0-5.2) X10^6/uL Hgb 14.9 (12.0-16.0) g/dL Hct 46.5 H (36-46) % MCV 95.1 (80-100) fL MCH 30.5 (26-34) PG MCHC 32.0 (30-36) % RDW 13.4 (11.6-14.8) % Plt Count 440 H (150-400) X10^3/uL Neut % (Auto) 85.4 H (50-75) % Lymph % (Auto) 7.5 L (25-40) % [place] % (Auto) 6.5 (3-14) % Eos % (Auto) 0.0 L (2-4) % Baso % (Auto) 0.6 (0-2) % Neut # (Auto) 43108 H (5328-1502) /uL VBG pH (7.33-7.43) VBG pCO2 (45-50) mmHg VBG pO2 (35-45) mmHg VBG HCO3 (23-28) mmol/L VBG Total CO2 (24-29) mmol/L VBG O2 Saturation (70-75) % VBG Base Excess (0-4) mmol/L Sodium 141 (137-145) mmol/L Potassium 4.8 (3.4-5.1) mmol/L Chloride 103 (98-107) mmol/L Carbon Dioxide < 5 L* (22-32) mmol/L BUN 16 (7-17) mg/dL Creatinine 1.10 H (0.52-1.04) mg/dL Estimated GFR > 60.0 (>60) mL/min BUN/Creatinine Ratio 14.5 (6-22) Glucose 459 H (70-100) mg/dL Lactate (0.7-2.1) mmol/L Calcium 9.3 (8.4-10.2) mg/dL Total Bilirubin 0.3 (0.2-1.3) mg/dL AST 17 (14-36) IU/L ALT 20 (9-52) IU/L Alkaline Phosphatase 188 H (38-126) U/L Total Protein 8.8 H (6.3-8.2) g/dL Albumin 5.0 (3.5-5.0) g/dL Globulin 3.8 (1.7-4.1) g/dL Albumin/Globulin Ratio 1.3 (1.0-2.8) Procalcitonin 0.71 H (<0.5) ng/mL 04/15/18 04/15/18 Range/Units 22:43 22:48 WBC (4.5-11.0) X10^3/uL RBC (4.0-5.2) X10^6/uL Hgb (12.0-16.0) g/dL Hct (36-46) % MCV (80-100) fL MCH (26-34) PG MCHC (30-36) % RDW (11.6-14.8) % Plt Count (150-400) X10^3/uL Neut % (Auto) (50-75) % Lymph % (Auto) (25-40) % [place] % (Auto) (3-14) % Eos % (Auto) (2-4) % Baso % (Auto) (0-2) % Neut # (Auto) (2008-7913) /uL VBG pH 6.97 L* (7.33-7.43) VBG pCO2 16.2 L (45-50) mmHg VBG pO2 53 H (35-45) mmHg VBG HCO3 4 L (23-28) mmol/L VBG Total CO2 < 5 L (24-29) mmol/L VBG O2 Saturation 68 L (70-75) % VBG Base Excess -28.0 L (0-4) mmol/L Sodium (137-145) mmol/L Potassium (3.4-5.1) mmol/L Chloride (98-107) mmol/L Carbon Dioxide (22-32) mmol/L BUN (7-17) mg/dL Creatinine (0.52-1.04) mg/dL Estimated GFR (>60) mL/min BUN/Creatinine Ratio (6-22) Glucose (70-100) mg/dL Lactate 1.2 (0.7-2.1) mmol/L Calcium (8.4-10.2) mg/dL Total Bilirubin (0.2-1.3) mg/dL AST (14-36) IU/L ALT (9-52) IU/L Alkaline Phosphatase (38-126) U/L Total Protein (6.3-8.2) g/dL Albumin (3.5-5.0) g/dL Globulin (1.7-4.1) g/dL Albumin/Globulin Ratio (1.0-2.8) Procalcitonin (<0.5) ng/mL Point of care testing: Point of Care Testing Glucose POC 335 Discharge Plan Departure Patient Disposition: Admitted As Inpatient Clinical Impression: DKA (diabetic ketoacidoses) Admit Date/Time: 04/15/18 23:49 Admit Provider: Julio Cesar Spicer
[2018-04-15] MEDS: INSULIN REGULAR, HUMAN 100 UNIT in SODIUM CHLORIDE 0.9% 100 ML 6 ML IV (23:48)
[2018-04-16] VITALS (16 sets, daily range): BP systolic 108–144; BP diastolic 47–92; PULSE 94–130; RESP 10–21; TEMP 36.9–37.7; O2SAT 96–100; BMI 20.6; BMI 20.5
[2018-04-16 00:06] LABS: Phosphorous 5.7 mg/dL (2.5-4.5)
[2018-04-16 00:19] LABS: Ketones (Beta-Hydroxybutyrate) 16.18 mmol/L (<0.27)
[2018-04-16 00:36] LABS: Albumin Globulin Ratio 1.3 (1.0-2.8)
[2018-04-16 00:37] LABS: Carbon Dioxide < 5 mmol/L (22-32)
[2018-04-16] MEDS: SODIUM CHLORIDE 0.9% 1,000 ML 500 ML IV (01:00)
[2018-04-16 01:08] LABS: Pregnancy Test Serum,Qual Negative (Negative)
[2018-04-16 01:57] LABS: Blood Urea Nitrogen 14 mg/dL (7-17); Calcium 8.7 mg/dL (8.4-10.2); Chloride 109 mmol/L (98-107); Estimated Glomerular Filt Rate > 60.0 mL/min (>60); Glucose 266 mg/dL (70-100); HEMOLYSIS < 15 (0-50); Magnesium 1.9 mg/dL (1.6-2.3); Phosphorous 4.3 mg/dL (2.5-4.5); Potassium 3.9 mmol/L (3.4-5.1); Sodium 145 mmol/L (137-145)
[2018-04-16 01:58] LABS: Carbon Dioxide < 5 mmol/L (22-32)
--- NOTE | 2018-04-16 02:03 | P.HP_ITS ---
History of Present Illness Date Patient Seen: 04/16/18 Time Patient Seen: 00:16 Chief complaint: trouble breathing Narrative: This is a 28-year-old female patient who presents to the ER with what she reports as few hours of nausea abdominal pain shortness of breath. She states the onset of symptoms approximately 3:00 p.m. today. She has a history type 1 diabetes since had recurring episodes of diabetic ketoacidosis. She reports that she has been eating poorly for the last several days and had no palpitations dating 04/23 a cookie because she felt she may be hypoglycemic. Her routine medications for diabetes are Tresiba 32units daily she reports about 1:00 a.m. in the afternoon and uses a prandial sliding scale Novalog She has had no other recent illness or prodromal symptoms denies cold or flu symptoms. She has had no cough or chest congestion and denies abdominal pain or change in stool habits. The patient has been under the care of [facility]. Patient's last admit for DKA was late spring. She does have history of migraines but none for 8 years has had a history of recurrent UTIs but denies symptoms frequency urgency or burning. She had a past medical history of pyelo nephritis as well as renal calculi removed by endoscopy and laser approximately 4 years ago. She reports she has had 15 ureteral stents placed. She reports irregular menstruation with her last menstrual period being 2 months ago and light in flow. She states she is sexually active and has never been . On presentation to the ER the patient was found to be tachycardic tachypneic with abdominal pain for which he received 0.5 mg of Dilaudid with resolution of pain. On ABG the patient had a pH of 6.97 with a pCO2 of 16.2 a PO2 of 53 and a bicarb of 4 with a base excess of -28. Potassium was 4.8 and magnesium and phosphorus as well as serum were added to labs drawn . In ER the patient was started on insulin drip and IV fluid bolusing initiated. The patient will be admitted to the ICU for close monitoring, hourly Accu-Cheks and serial labs and titration of insulin. Patient History Medical History Irregular menstrual cycle (Acute) Status post laser lithotripsy of ureteral calculus (Acute) Migraine headache (Chronic) Type 1 diabetes mellitus (Chronic) DKA (diabetic ketoacidoses) (Resolved) History of pyelonephritis (Resolved) Nephrolithiasis (Resolved) Surgical History History of ureter stent (Resolved) Family & Social History Social History: household members family Tobacco & Substance use: Smoking Status Never smoker alcohol intake never alcohol intake frequency 0-2 drinks per day Substance Use Type does not use Comment: The patient is designated surrogate decision maker is her Justen. Meds Home Medications Medication Instructions Recorded Confirmed Type Novolog Flexpen U-100 Insulin 5 - 15 units SUB-Q TID 10/29/17 04/16/18 History Tresiba FlexTouch U-100 32 units SUB-Q DAILY 10/29/17 04/16/18 History hydrocodone-acetaminophen [[place]] 1 tab PO Q4-6H PRN #20 tab 04/17/18 Rx sulfamethoxazole-trimethoprim 1 tab PO BID 10 Days #20 tab 04/17/18 Rx Allergies Allergy/AdvReac Type Severity Reaction Status Date / Time abdalla [ABDALLA] Allergy Intermediate Hives, Verified 02/03/18 19:43 pruritus iodine [IODINE] Allergy Intermediate rash, itchy Verified 02/03/18 19:43 morphine Allergy Intermediate Difficulty Verified 02/03/18 19:43 Breathing shellfish derived Allergy Intermediate rash Verified 02/03/18 19:43 [SHELLFISH DERIVED] adhesive [ADHESIVE] Allergy Unknown tape Verified 02/03/18 19:43 latex [LATEX] Allergy Unknown Verified 02/03/18 19:43 Review of Systems Constitutional Constitutional: Denies excessive sweating, Reports fatigue, Denies fever(s), Reports headache(s) (history of migraines), Denies night sweats and Reports poor appetite Eyes Eyes: Denies change in vision, Denies double vision, Denies discharge, Denies eye pain and Denies sensitivity to light ENT Ears, Nose, Mouth, and Throat: No abnormal hearing, No dental pain, No dizziness , Yes dry mouth, No ear pain, No facial pain, Yes headache(s) (history of migraines), Yes lip swelling (Dry and chapped lips), No neck pain, No pain with swallowing, No sinus pain and No sore throat Cardiovascular Cardiovascular: Denies chest pain, Denies foot swelling, Denies lightheadedness , Denies rapid, pounding, or irregular heartbeat and Reports shortness of breath (Rapid breathing can not catch up) Respiratory Respiratory: Denies chest congestion, Denies cough, Denies pain on inspiration, Reports dyspnea (Rapid breathing can not catch up) and Denies wheezing Gastrointestinal Gastrointestinal: Denies abdominal pain, Denies belching, Denies bloating, Denies change in bowel habits, Denies constipation, Denies cramping, Denies heartburn, Denies loose stools, Reports nausea and Denies odynophagia Genitourinary Genitourinary: Reports abnormal menses (Last menstrual period was 2 months ago, light flow), Denies vaginal discharge, Denies hematuria, Denies dyspareunia, Denies urinary frequency, Denies urinary hesitancy, Denies urinary urgency and Denies genital lesions Musculoskeletal Musculoskeletal: Denies back pain, Denies myalgias, Reports arthralgias (Recent right hip pain), Denies limited range of motion, Denies muscle cramps, Denies muscle weakness, Denies neck pain, Denies numbness and Denies tingling Integumentary/Breasts Skin/Breast: Denies erythema, Denies rash, Denies skin ulcer, Denies sores, Denies wounds and Denies jaundice Neurologic Neurologic: Denies abnormal hearing, Denies dizziness, Reports headache(s) ( history of migraines), Denies numbness and Denies tingling Psychiatric Psychiatric: Reports anxiety (Reports stress), Reports change in appetite (Poor appetite), Denies panic attacks, Denies paranoia and Denies hallucinations Endocrine Endocrine: Denies cold intolerance, Denies excessive sweating, Reports fatigue, Denies flushing, Denies heat intolerance, Denies palpitations and Reports other (History diabetic type 1) Hematologic/Lymphatic Hematologic/Lymphatic: Denies easy bleeding, Denies easy bruising and Denies lymphadenopathy Allergic/Immunologic Allergic/Immunologic: Reports lip swelling (Dry and chapped lips) and Denies wheezing Exam Vital Signs (past 8 hours): - 04/15/18 22:18 04/15/18 22:43 04/15/18 23:04 Temperature 98.3 F Pulse Rate 124 H 128 H 127 H Respiratory Rate 30 H 27 H 21 Blood Pressure 151/96 H Blood Pressure [Left Arm] 135/81 131/89 Pulse Oximetry 100 100 96 04/16/18 00:55 04/16/18 01:00 Temperature 98.7 F Pulse Rate 127 H 129 H Respiratory Rate 21 20 Blood Pressure 142/92 H Blood Pressure [Left Arm] 144/88 H Pulse Oximetry 97 100 Oxygen Delivery Method Room Air Oxygen Flow Rate 0 Const General: cooperative, well developed and No well hydrated (Dehydrated with dry lips and skin) Nutritional Appearance: well nourished Orientation: alert, awake and oriented x3 Limitations: mental status not altered, no behavioral limitations and no physical limitations [facility] Head: normocephalic and atraumatic Ears: hearing grossly normal bilaterally Nose: external nose normal and No nasal discharge Face and sinus: normal facial exam and sinuses tender Mouth: oropharynx normal (No exudate or lesions noted, tongue is midline), mucous membranes abnormal (Tongue and oral mucous membranes are dry) and lip abnormal (Chapped and scaling of lips) Throat: posterior oropharynx normal and uvula midline Eyes Alignment and Position: alignment normal Conjunctivae: conjunctivae normal Pupils: PERRL EOM: EOM intact bilaterally and No nystagmus Neck Neck: full ROM, trachea midline and No tender Thyroid: thyroid normal Lymphatic: No lymphadenopathy and other (No JVD) Chest Chest: normal palpation of entire chest wall, No tenderness and No rash Resp Effort & Inspection: tachypneic (Kussmaul's respirations) Auscultation: clear to auscultation bilaterally, no crackles, no rhonchi and no wheezes Percussion: percussion normal Tactile [place]itus: other (No cough) Cardio Palpation: normal PMI Rate: tachycardic Rhythm: regular rhythm Heart Sounds: S1 normal and S2 normal Pulses: normal peripheral pulses GI Inspection: normal to inspection Palpation: soft, no hepatosplenomegaly, No guarding, No mass and No tender (No peritoneal signs) Percussion: dullness to percussion Auscultation: abnormal bowel sounds (Hypoactive) Back/Spine/Pelvis Back: normal to inspection, No back tenderness and No CVA tenderness Skin General: no rashes or lesions noted and dry skin (Poor skin turgor) Wounds: no wounds Hair: normal Nails: normal Neuro General: alert, awake, oriented x3 and no meningeal signs Cranial Nerves: CN's II-XI intact bilaterally and No nystagmus Cognition: normal cognition Speech: speech normal Gait: other (Gait not assessed) Motor: strength 5/5 throughout Sensory Exam: no sensory deficits noted Pupils: Normal pupillary reactivity/response: bilateral and Mid position: bilateral Objective Labs Result Diagrams: 04/17/18 04:30 04/17/18 16:59 Labs: Laboratory Results - last 24 hr 04/15/18 04/15/18 04/15/18 22:43 22:43 22:43 WBC 25.0 H RBC 4.89 Hgb 14.9 Hct 46.5 H MCV 95.1 MCH 30.5 MCHC 32.0 RDW 13.4 Plt Count 440 H Neut % (Auto) 85.4 H Lymph % (Auto) 7.5 L [place] % (Auto) 6.5 Eos % (Auto) 0.0 L Baso % (Auto) 0.6 Neut # (Auto) 51643 H VBG pH VBG pCO2 VBG pO2 VBG HCO3 VBG Total CO2 VBG O2 Saturation VBG Base Excess Sodium 141 Potassium 4.8 Chloride 103 Carbon Dioxide < 5 L* BUN 16 Creatinine 1.10 H Estimated GFR > 60.0 BUN/Creatinine Ratio 14.5 Glucose 459 H Lactate Calcium 9.3 Phosphorus Magnesium Total Bilirubin 0.3 AST 17 ALT 20 Alkaline Phosphatase 188 H Total Protein 8.8 H Albumin 5.0 Globulin 3.8 Albumin/Globulin Ratio 1.3 Procalcitonin 0.71 H Serum , Qual Ketones 16.18 H 04/15/18 04/15/18 04/15/18 22:43 22:43 22:48 WBC RBC Hgb Hct MCV MCH MCHC RDW Plt Count Neut % (Auto) Lymph % (Auto) [place] % (Auto) Eos % (Auto) Baso % (Auto) Neut # (Auto) VBG pH 6.97 L* VBG pCO2 16.2 L VBG pO2 53 H VBG HCO3 4 L VBG Total CO2 < 5 L VBG O2 Saturation 68 L VBG Base Excess -28.0 L Sodium Potassium Chloride Carbon Dioxide BUN Creatinine Estimated GFR BUN/Creatinine Ratio Glucose Lactate 1.2 Calcium Phosphorus 5.7 H Magnesium 2.0 Total Bilirubin AST ALT Alkaline Phosphatase Total Protein Albumin Globulin Albumin/Globulin Ratio Procalcitonin Serum , Qual Ketones 04/16/18 Unknown WBC RBC Hgb Hct MCV MCH MCHC RDW Plt Count Neut % (Auto) Lymph % (Auto) [place] % (Auto) Eos % (Auto) Baso % (Auto) Neut # (Auto) VBG pH VBG pCO2 VBG pO2 VBG HCO3 VBG Total CO2 VBG O2 Saturation VBG Base Excess Sodium Potassium Chloride Carbon Dioxide BUN Creatinine Estimated GFR BUN/Creatinine Ratio Glucose Lactate Calcium Phosphorus Magnesium Total Bilirubin AST ALT Alkaline Phosphatase Total Protein Albumin Globulin Albumin/Globulin Ratio Procalcitonin Serum , Qual Negative Ketones Assessment & Plan Plan: Assessment/Plan Narrative: 1. Diabetic ketoacidosis, acute Blood sugar on presentation was 459 mg per dL. Patient was tachycardic with Kussmaul respirations and dehydrated dry appearance Patient is rehydrated with normal saline a 500 mL/hr Will obtain Accu-Cheks hourly and titrate insulin drip per protocol. Will continue to monitor serial labs including BMP, magnesium and phosphate IV fluids per protocol, normal saline at 500 transitioning to D5 1/2 NS and will add 20 mEq KCL. Check/x-rays negative as read by myself compared to prior exam in January 2018 There is no focal dullness nor triggering event other than the patient reporting poor eating over the last several days to weeks. The patient also describes altered appetite and a slight build will go ahead and add a TSH. 2. Frequent headaches, present on admit, stable Complaint of dull headache in the ER resolved on admit Prior history migraine headaches with last episode 8 years ago Stable and resolved 3. Irregular menses, present on admission Last menstrual period 2 months ago with no compressing complaints of abdominal pain. Patient is sexually active with vaginal discharge or drainage or dyspareunia Noncontributory to the patient's present medical condition. Further evaluation can be obtained on outpatient basis. Disposition: Admit to Observation. Patient will likely remain 1-2 days due to the severity of her acidosis.
[2018-04-16] MEDS: HYDROMORPHONE 0.5 MG INJ IV (02:20)
[2018-04-16 02:41] LABS: Thyroid Stimulating Hormone 1.33 uIU/mL (0.47-4.68)
[2018-04-16] MEDS: DEXTROSE 5%-0.45NS W/KCL 20MEQ 1,000 ML 200 MEQ IV ×2 (03:03→07:53)
--- NOTE | 2018-04-16 03:22 | PC.NURSE ---
NOC Shift: Pt admitted for DKA, pt has been admitted before to ICU before. Pt AAOx3, pleasant, w/o acute distress. Complains of only generalized pain, body aches. States hasn't eaten in the past several days, and feels dehydrated. Currently on DKA protocol receiving IV fluids, Insulin gtt. See flow sheet. ST 120 to 130 on tele, VSS. Having Kussmal breathing, tachypnea re: CO2, metabolic results, pH 6.9. Will give IV pain meds once ordered. SHARYN Dukes in to andrew ptnina at bedside. Admitted to ICU care.
[2018-04-16 05:12] LABS: Appearance Urine UA CLEAR; Bilirubin Urine UA NEGATIVE (NEGATIVE); Color Urine UA YELLOW; Glucose Urine UA 2+ g/dL (Normal); Ketones Urine UA 3+ (NEGATIVE); Leukocyte Esterase Urine UA NEGATIVE (NEGATIVE); Nitrite Urine UA NEGATIVE (Negative); Occult Blood Urine UA 1+ (Negative); Protein Urine UA 1+ (Negative); Specific Gravity Urine UA 1.025 (1.000-1.035); Urobilinogen Urine UA 0.2 E.U./dL (0.2)
[2018-04-16 05:31] LABS: BUN Creatinine Ratio 13.3 (6-22); Blood Urea Nitrogen 12 mg/dL (7-17); Calcium 8.3 mg/dL (8.4-10.2); Chloride 112 mmol/L (98-107); Estimated Glomerular Filt Rate > 60.0 mL/min (>60); Glucose 174 mg/dL (70-100); HEMOLYSIS < 15 (0-50); Phosphorous 2.8 mg/dL (2.5-4.5); Potassium 3.8 mmol/L (3.4-5.1); Sodium 142 mmol/L (137-145)
[2018-04-16 05:34] LABS: Carbon Dioxide 7 mmol/L (22-32)
[2018-04-16 05:55] LABS: Procalcitonin 0.66 ng/mL (<0.5)
[2018-04-16 06:36] LABS: RBC Urine 0-1/HPF (0-5/HPF); Squamous Epithelial Cell Urine 1-5 /HPF; WBC Urine 1-5/HPF (0-5/HPF)
[2018-04-16 06:37] LABS: Bacteria Urine Few (2-10); Culture Indicated Urine Cult Not Indicated
[2018-04-16] MEDS: HYDROMORPHONE 1 MG INJ 0.5 MG IV ×3 (07:43→18:32)
[2018-04-16] MEDS: CALCIUM CARBONATE 600 MG TABLET PO (07:44)
--- NOTE | 2018-04-16 09:00 | CM.DANOTE ---
Discharge Planning/Care Management DCP: assessment: Case received, EMR reviewed and went to ICU to meet with pt for initial introduction of self and role. Stopped by RAYNA Caballero who stated pt needed to sleep. Pt is a 28 year old female who admitted last night to care of the hospitalist team. PCP: listed on face sheet as Dr. Hernandez/MIN Payer: [employer]/Medicaid Pt carries dx of Type I Diabetes. Is currently NPO, on insulin drip. Quietly entered room and noted pt and her luz elena Paredes lying still with eyes closed. Neither rouse as white board is updated. DCP team will follow prn as POC unfolds to assist with any d/c needs that may be identified. CM Discharge Assessment Start: 04/16/18 08:55 Freq: Status: Active Protocol: Document 04/16/18 08:56 ITV (Rec: 04/16/18 09:00 ITV [id number]) Discharge Planning Assessment History Provided By Patient Family Member Medical Record Prior Living Arrangements House Household Members significant other family Comment lives with luz elena Paredes [phone]. Independent with ADL's Yes: per report Is patient alert and oriented? Yes: per report Whiteboard Updated in Patient Room with Yes name and ext. 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
[2018-04-16 09:54] LABS: BUN Creatinine Ratio 15.7 (6-22); Blood Urea Nitrogen 11 mg/dL (7-17); Calcium 8.2 mg/dL (8.4-10.2); Carbon Dioxide 13 mmol/L (22-32); Chloride 115 mmol/L (98-107); Estimated Glomerular Filt Rate > 60.0 mL/min (>60); Glucose 178 mg/dL (70-100); HEMOLYSIS < 15 (0-50); Magnesium 1.6 mg/dL (1.6-2.3); Phosphorous 2.3 mg/dL (2.5-4.5); Sodium 143 mmol/L (137-145)
[2018-04-16] MEDS: MAGNESIUM SULFATE 2 GM/50 ML PIGGYBACK IV (11:23)
[2018-04-16] MEDS: INSULIN DEGLUDEC 32 EACH SUBCUT (12:09)
[2018-04-16] MEDS: METOCLOPRAMIDE 10 MG/2 ML INJ IV (12:15)
--- NOTE | 2018-04-16 13:32 | PC.NURSE ---
Day Shift Note Patient drowsy but awakens easily, drinking PO fluid. Insulin gtt and IV fluids stopped at 1310 - 1 hour after Tresiba 32 units administered per MD order.
[2018-04-16 13:33] LABS: Add Manual Diff / Slide Review NO; Basophils Percent Auto 0.9 % (0-2); Eosinophils Percent Auto 0.2 % (2-4); Hematocrit 38.2 % (36-46); Lymphocytes Percent Auto 9.8 % (25-40); Mean Corpuscular HGB Conc 34.1 % (30-36); Mean Corpuscular Hemoglobin 30.7 PG (26-34); Monocytes Percent Auto 13.3 % (3-14); Neutrophils Absolute Auto 10600 /uL (1500-7000); Neutrophils Percent Auto 75.8 % (50-75); Platelet Count 307 X10^3/uL (150-400); Red Blood Cell Count 4.25 X10^6/uL (4.0-5.2); White Blood Cell Count 13.9 X10^3/uL (4.5-11.0)
[2018-04-16 13:42] LABS: BUN Creatinine Ratio 14.3 (6-22); Blood Urea Nitrogen 10 mg/dL (7-17); Calcium 8.7 mg/dL (8.4-10.2); Carbon Dioxide 14 mmol/L (22-32); Chloride 113 mmol/L (98-107); Estimated Glomerular Filt Rate > 60.0 mL/min (>60); Glucose 141 mg/dL (70-100); HEMOLYSIS < 15 (0-50); Sodium 143 mmol/L (137-145)
--- NOTE | 2018-04-16 16:56 | PC.NURSE ---
Benjie - Dr. Herron into see pt. Bedside of I and D of the abscess. Wound cultures obtained by MD. Nares and throat swabs obtain by RN. Wound with Purulent and bloody drainage. Peripad in place. Pt denies nausea. Reports abd pain, belt-like across abd, shape and stabbing. Declines apap until evening meal in order to avoid recurrent nausea.
--- NOTE | 2018-04-16 16:58 | PM.CN ---
History of Present Illness Date Patient Seen: 04/16/18 Time Patient Seen: 16:00 Chief complaint: trouble breathing Reason for consult: Vulvar abscess PFSH Medical History Irregular menstrual cycle (Acute) Status post laser lithotripsy of ureteral calculus (Acute) Migraine headache (Chronic) Type 1 diabetes mellitus (Chronic) DKA (diabetic ketoacidoses) (Resolved) History of pyelonephritis (Resolved) Nephrolithiasis (Resolved) Surgical History History of ureter stent (Resolved) Social History household members: significant other and family Smoking Status: Never smoker alcohol intake: never Meds Home Medications Medication Instructions Recorded Confirmed Type Novolog Flexpen U-100 Insulin 5 - 15 units SUB-Q TID 10/29/17 04/16/18 History Tresiba FlexTouch U-100 32 units SUB-Q DAILY 10/29/17 04/16/18 History Allergies Allergy/AdvReac Type Severity Reaction Status Date / Time arredondo [ARREDONDO] Allergy Intermediate Hives, Verified 02/03/18 19:43 pruritus iodine [IODINE] Allergy Intermediate rash, itchy Verified 02/03/18 19:43 morphine Allergy Intermediate Difficulty Verified 02/03/18 19:43 Breathing shellfish derived Allergy Intermediate rash Verified 02/03/18 19:43 [SHELLFISH DERIVED] adhesive [ADHESIVE] Allergy Unknown tape Verified 02/03/18 19:43 latex [LATEX] Allergy Unknown Verified 02/03/18 19:43 Review of Systems Review of Systems Patient is complaining of a lump on her vulva. She states she has had these before but never quite this bad. All systems reviewed & are unremarkable except as noted in HPI and below Exam Vital Signs (past 8 hours): - 04/16/18 09:00 04/16/18 10:00 04/16/18 11:00 Temperature 99.7 F H Pulse Rate 113 H 110 H 110 H Respiratory Rate 10 L 13 14 Blood Pressure 114/59 L 112/47 L 108/62 Pulse Oximetry 96 96 96 04/16/18 12:02 04/16/18 16:00 Temperature 99.2 F 98.7 F Pulse Rate 112 H 94 H Respiratory Rate 14 16 Blood Pressure 108/54 L 125/81 Pulse Oximetry 97 100 Oxygen Delivery Method Room Air Oxygen Flow Rate 0 Narrative Exam Narrative: Patient on external genitalia has swelling of her right labia with redness and 4 x 2 cm firm mass with an area of skin breakdown. Decision was made to proceed with I&D. The skin was cleaned with alcohol. Approximately 1 cc of 2% lidocaine was injected in the area of the mass. A scalpel was used to make an incision. There was pus released. Cultures were performed. Objective Labs Result Diagrams: 04/16/18 13:15 04/16/18 13:15 Labs: Laboratory Results - last 24 hr 04/15/18 04/15/18 04/15/18 22:43 22:43 22:43 WBC 25.0 H RBC 4.89 Hgb 14.9 Hct 46.5 H MCV 95.1 MCH 30.5 MCHC 32.0 RDW 13.4 Plt Count 440 H Neut % (Auto) 85.4 H Lymph % (Auto) 7.5 L [place] % (Auto) 6.5 Eos % (Auto) 0.0 L Baso % (Auto) 0.6 Neut # (Auto) 47804 H VBG pH VBG pCO2 VBG pO2 VBG HCO3 VBG Total CO2 VBG O2 Saturation VBG Base Excess Sodium 141 Potassium 4.8 Chloride 103 Carbon Dioxide < 5 L* BUN 16 Creatinine 1.10 H Estimated GFR > 60.0 BUN/Creatinine Ratio 14.5 Glucose 459 H Lactate Calcium 9.3 Phosphorus Magnesium Total Bilirubin 0.3 AST 17 ALT 20 Alkaline Phosphatase 188 H Total Protein 8.8 H Albumin 5.0 Globulin 3.8 Albumin/Globulin Ratio 1.3 Procalcitonin 0.71 H TSH Serum , Qual Urine Color Urine Appearance Urine pH Ur Specific [place] Urine Protein Urine Glucose (UA) Urine Ketones Urine Occult Blood Urine Nitrate Urine Bilirubin Urine Urobilinogen Ur Leukocyte Esterase Urine RBC Urine WBC Ur Squamous Epith Cells Urine Bacteria Ur Culture Indicated? Micro UA Comment Nasal Screen MRSA (PCR) Ketones 16.18 H 04/15/18 04/15/18 04/15/18 22:43 22:43 22:48 WBC RBC Hgb Hct MCV MCH MCHC RDW Plt Count Neut % (Auto) Lymph % (Auto) [place] % (Auto) Eos % (Auto) Baso % (Auto) Neut # (Auto) VBG pH 6.97 L* VBG pCO2 16.2 L VBG pO2 53 H VBG HCO3 4 L VBG Total CO2 < 5 L VBG O2 Saturation 68 L VBG Base Excess -28.0 L Sodium Potassium Chloride Carbon Dioxide BUN Creatinine Estimated GFR BUN/Creatinine Ratio Glucose Lactate 1.2 Calcium Phosphorus 5.7 H Magnesium 2.0 Total Bilirubin AST ALT Alkaline Phosphatase Total Protein Albumin Globulin Albumin/Globulin Ratio Procalcitonin TSH Serum , Qual Urine Color Urine Appearance Urine pH Ur Specific [place] Urine Protein Urine Glucose (UA) Urine Ketones Urine Occult Blood Urine Nitrate Urine Bilirubin Urine Urobilinogen Ur Leukocyte Esterase Urine RBC Urine WBC Ur Squamous Epith Cells Urine Bacteria Ur Culture Indicated? Micro UA Comment Nasal Screen MRSA (PCR) Ketones 04/16/18 04/16/18 04/16/18 01:30 01:36 01:36 WBC RBC Hgb Hct MCV MCH MCHC RDW Plt Count Neut % (Auto) Lymph % (Auto) [place] % (Auto) Eos % (Auto) Baso % (Auto) Neut # (Auto) VBG pH VBG pCO2 VBG pO2 VBG HCO3 VBG Total CO2 VBG O2 Saturation VBG Base Excess Sodium 145 Potassium 3.9 Chloride 109 H Carbon Dioxide < 5 L* BUN 14 Creatinine 1.00 Estimated GFR > 60.0 BUN/Creatinine Ratio 14.0 Glucose 266 H D Lactate Calcium 8.7 Phosphorus 4.3 D Magnesium 1.9 Total Bilirubin AST ALT Alkaline Phosphatase Total Protein Albumin Globulin Albumin/Globulin Ratio Procalcitonin TSH 1.33 Serum , Qual Urine Color Urine Appearance Urine pH Ur Specific [place] Urine Protein Urine Glucose (UA) Urine Ketones Urine Occult Blood Urine Nitrate Urine Bilirubin Urine Urobilinogen Ur Leukocyte Esterase Urine RBC Urine WBC Ur Squamous Epith Cells Urine Bacteria Ur Culture Indicated? Micro UA Comment Nasal Screen MRSA (PCR) Negative for mrsa Ketones 04/16/18 04/16/18 04/16/18 04:45 04:48 04:48 WBC RBC Hgb Hct MCV MCH MCHC RDW Plt Count Neut % (Auto) Lymph % (Auto) [place] % (Auto) Eos % (Auto) Baso % (Auto) Neut # (Auto) VBG pH VBG pCO2 VBG pO2 VBG HCO3 VBG Total CO2 VBG O2 Saturation VBG Base Excess Sodium 142 Potassium 3.8 Chloride 112 H Carbon Dioxide 7 L* BUN 12 Creatinine 0.90 Estimated GFR > 60.0 BUN/Creatinine Ratio 13.3 Glucose 174 H Lactate Calcium 8.3 L Phosphorus 2.8 D Magnesium Total Bilirubin AST ALT Alkaline Phosphatase Total Protein Albumin Globulin Albumin/Globulin Ratio Procalcitonin 0.66 H TSH Serum , Qual Urine Color Yellow Urine Appearance Clear Urine pH 5.0 Ur Specific [place] 1.025 Urine Protein 1+ H Urine Glucose (UA) 2+ Urine Ketones 3+ H Urine Occult Blood 1+ H Urine Nitrate Negative Urine Bilirubin Negative Urine Urobilinogen 0.2 Ur Leukocyte Esterase Negative Urine RBC 0-1/hpf Urine WBC 1-5/hpf Ur Squamous Epith Cells 1-5 /hpf Urine Bacteria Few (2-10) H Ur Culture Indicated? Cult not indicated Micro UA Comment Not Reportable Nasal Screen MRSA (PCR) Ketones 04/16/18 04/16/18 04/16/18 09:12 13:15 13:15 WBC 13.9 H RBC 4.25 Hgb 13.0 Hct 38.2 MCV 90.0 D MCH 30.7 MCHC 34.1 RDW 13.0 Plt Count 307 Neut % (Auto) 75.8 H Lymph % (Auto) 9.8 L [place] % (Auto) 13.3 Eos % (Auto) 0.2 L Baso % (Auto) 0.9 Neut # (Auto) 37340 H VBG pH VBG pCO2 VBG pO2 VBG HCO3 VBG Total CO2 VBG O2 Saturation VBG Base Excess Sodium 143 143 Potassium 4.0 4.0 Chloride 115 H 113 H Carbon Dioxide 13 L 14 L BUN 11 10 Creatinine 0.70 0.70 Estimated GFR > 60.0 > 60.0 BUN/Creatinine Ratio 15.7 14.3 Glucose 178 H 141 H Lactate Calcium 8.2 L 8.7 Phosphorus 2.3 L Magnesium 1.6 Total Bilirubin AST ALT Alkaline Phosphatase Total Protein Albumin Globulin Albumin/Globulin Ratio Procalcitonin TSH Serum , Qual Urine Color Urine Appearance Urine pH Ur Specific [place] Urine Protein Urine Glucose (UA) Urine Ketones Urine Occult Blood Urine Nitrate Urine Bilirubin Urine Urobilinogen Ur Leukocyte Esterase Urine RBC Urine WBC Ur Squamous Epith Cells Urine Bacteria Ur Culture Indicated? Micro UA Comment Nasal Screen MRSA (PCR) Ketones 04/16/18 Unknown WBC RBC Hgb Hct MCV MCH MCHC RDW Plt Count Neut % (Auto) Lymph % (Auto) [place] % (Auto) Eos % (Auto) Baso % (Auto) Neut # (Auto) VBG pH VBG pCO2 VBG pO2 VBG HCO3 VBG Total CO2 VBG O2 Saturation VBG Base Excess Sodium Potassium Chloride Carbon Dioxide BUN Creatinine Estimated GFR BUN/Creatinine Ratio Glucose Lactate Calcium Phosphorus Magnesium Total Bilirubin AST ALT Alkaline Phosphatase Total Protein Albumin Globulin Albumin/Globulin Ratio Procalcitonin TSH Serum , Qual Negative Urine Color Urine Appearance Urine pH Ur Specific [place] Urine Protein Urine Glucose (UA) Urine Ketones Urine Occult Blood Urine Nitrate Urine Bilirubin Urine Urobilinogen Ur Leukocyte Esterase Urine RBC Urine WBC Ur Squamous Epith Cells Urine Bacteria Ur Culture Indicated? Micro UA Comment Nasal Screen MRSA (PCR) Ketones Assessment & Plan (1) Vulvar abscess: Current visit: Yes Status: Acute Plan: Assessment/Plan Narrative: Patient with vulvar abscess is likely responsible for her diabetic ketoacidosis. The abscesses was I + D. patient will start on antibiotics and heat to the area.
[2018-04-16 17:21] LABS: Strep Grp A by PCR Rapid Negative
[2018-04-16] MEDS: INSULIN ASPART 100 UNIT/ML INSULN PEN SUBCUT ×2 (17:29→20:47)
[2018-04-16 18:45] LABS: Adenovirus Not Detected (Not Detect); Bordetella pertussis Not Detected (Not Detect); Chlamydophila pneumoniae Not Detected (Not Detect); Coronavirus 229E Not Detected (Not Detect); Coronavirus HKU1 Not Detected (Not Detect); Coronavirus NL 63 Not Detected (Not Detect); Coronavirus OC43 Not Detected (Not Detect); Human Metapneumovirus Not Detected (Not Detect); Human Rhinovirus/Enterovirus Not Detected (Not Detect); Influenza A Not Detected (Not Detect); Influenza B Not Detected (Not Detect); Mycoplasma pneumoniae Not Detected (Not Detect); Parainfluenza Virus 1 Not Detected (Not Detect); Parainfluenza Virus 2 Not Detected (Not Detect); Parainfluenza Virus 3 Not Detected (Not Detect); Parainfluenza Virus 4 Not Detected (Not Detect); Respiratory Syncytial Virus Not Detected (Not Detect)
[2018-04-16] MEDS: TRIMETH/SULFA 160/800 (DS) TABLET 1 TAB PO (20:46)
--- NOTE | 2018-04-16 21:38 | P.PN_ITS ---
Subjective Date Patient Seen: 04/16/18 Interval history: Sarabjit Jimenes is a 28-year-old female with a past medical history significant for nephrolithiasis and diabetes mellitus type 1 who presented with shortness of breath, nausea and abdominal pain and was admitted for DKA. The patient was stable overnight in her anion gap closed early this morning. She was transitioned off insulin gtt and onto her usual insulin regimen. She endorses epigastric abdominal pain that she reports is normal for her when she has a DKA episode. She continued to feel nauseous and was tachycardic. Discussed patient's symptoms and she reported she has had sore throat with a nonproductive cough and ?a cyst.? Upon further inspection, the patient had an abscess on her right vulva. Consulted service center appraiser, Dr. Herron, who performed an I&D. Exam Vital Signs (past 8 hours): - 04/16/18 09:00 04/16/18 10:00 04/16/18 11:00 Temperature 99.7 F H Pulse Rate 113 H 110 H 110 H Respiratory Rate 10 L 13 14 Blood Pressure 114/59 L 112/47 L 108/62 Pulse Oximetry 96 96 96 04/16/18 12:02 Temperature 99.2 F Pulse Rate 112 H Respiratory Rate 14 Blood Pressure 108/54 L Pulse Oximetry 97 Oxygen Delivery Method Room Air Oxygen Flow Rate 0 Narrative Exam Narrative: General: Young female lying in bed and in no acute distress, appears ill, well-developed, well-nourished, appropriately interactive. HEENT: Normocephalic, atraumatic. External ears without defect. Pupils equal, round, and reactive to light. Anicteric sclerae, moist conjunctivae, and no lid lag. Fruity smell on breath. Neck: Supple with full range of motion. No lymphadenopathy or thyromegaly. Cardiovascular: Regular rhythm, tachycardic, without murmurs, rubs, or gallops appreciated Pulmonary: Clear to auscultation bilaterally without crackles, wheezes, or rhonchi. Normal respiratory effort with no use of accessory muscles. Abdomen: Soft, bowel sounds present, mild epigastric tenderness, nondistended. No hepatosplenomegaly or masses appreciated. No guarding. Extremities: No clubbing, cyanosis, or edema. Skin: Normal temperature, turgor, and texture; abscess on right vulva with purulent discharge, erythematous, warm, and firm. Neurological: Cranial nerves grossly intact. Psychiatric: Normal mood and affect. Alert and oriented to person, place, and time. Objective Labs Result Diagrams: 04/16/18 13:15 04/16/18 13:15 Labs: Laboratory Results - last 24 hr 04/15/18 04/15/18 04/15/18 22:43 22:43 22:43 WBC 25.0 H RBC 4.89 Hgb 14.9 Hct 46.5 H MCV 95.1 MCH 30.5 MCHC 32.0 RDW 13.4 Plt Count 440 H Neut % (Auto) 85.4 H Lymph % (Auto) 7.5 L [place] % (Auto) 6.5 Eos % (Auto) 0.0 L Baso % (Auto) 0.6 Neut # (Auto) 41406 H VBG pH VBG pCO2 VBG pO2 VBG HCO3 VBG Total CO2 VBG O2 Saturation VBG Base Excess Sodium 141 Potassium 4.8 Chloride 103 Carbon Dioxide < 5 L* BUN 16 Creatinine 1.10 H Estimated GFR > 60.0 BUN/Creatinine Ratio 14.5 Glucose 459 H Lactate Calcium 9.3 Phosphorus Magnesium Total Bilirubin 0.3 AST 17 ALT 20 Alkaline Phosphatase 188 H Total Protein 8.8 H Albumin 5.0 Globulin 3.8 Albumin/Globulin Ratio 1.3 Procalcitonin 0.71 H TSH Serum , Qual Urine Color Urine Appearance Urine pH Ur Specific [place] Urine Protein Urine Glucose (UA) Urine Ketones Urine Occult Blood Urine Nitrate Urine Bilirubin Urine Urobilinogen Ur Leukocyte Esterase Urine RBC Urine WBC Ur Squamous Epith Cells Urine Bacteria Ur Culture Indicated? Micro UA Comment Nasal Screen MRSA (PCR) Ketones 16.18 H 04/15/18 04/15/18 04/15/18 22:43 22:43 22:48 WBC RBC Hgb Hct MCV MCH MCHC RDW Plt Count Neut % (Auto) Lymph % (Auto) [place] % (Auto) Eos % (Auto) Baso % (Auto) Neut # (Auto) VBG pH 6.97 L* VBG pCO2 16.2 L VBG pO2 53 H VBG HCO3 4 L VBG Total CO2 < 5 L VBG O2 Saturation 68 L VBG Base Excess -28.0 L Sodium Potassium Chloride Carbon Dioxide BUN Creatinine Estimated GFR BUN/Creatinine Ratio Glucose Lactate 1.2 Calcium Phosphorus 5.7 H Magnesium 2.0 Total Bilirubin AST ALT Alkaline Phosphatase Total Protein Albumin Globulin Albumin/Globulin Ratio Procalcitonin TSH Serum , Qual Urine Color Urine Appearance Urine pH Ur Specific [place] Urine Protein Urine Glucose (UA) Urine Ketones Urine Occult Blood Urine Nitrate Urine Bilirubin Urine Urobilinogen Ur Leukocyte Esterase Urine RBC Urine WBC Ur Squamous Epith Cells Urine Bacteria Ur Culture Indicated? Micro UA Comment Nasal Screen MRSA (PCR) Ketones 04/16/18 04/16/18 04/16/18 01:30 01:36 01:36 WBC RBC Hgb Hct MCV MCH MCHC RDW Plt Count Neut % (Auto) Lymph % (Auto) [place] % (Auto) Eos % (Auto) Baso % (Auto) Neut # (Auto) VBG pH VBG pCO2 VBG pO2 VBG HCO3 VBG Total CO2 VBG O2 Saturation VBG Base Excess Sodium 145 Potassium 3.9 Chloride 109 H Carbon Dioxide < 5 L* BUN 14 Creatinine 1.00 Estimated GFR > 60.0 BUN/Creatinine Ratio 14.0 Glucose 266 H D Lactate Calcium 8.7 Phosphorus 4.3 D Magnesium 1.9 Total Bilirubin AST ALT Alkaline Phosphatase Total Protein Albumin Globulin Albumin/Globulin Ratio Procalcitonin TSH 1.33 Serum , Qual Urine Color Urine Appearance Urine pH Ur Specific [place] Urine Protein Urine Glucose (UA) Urine Ketones Urine Occult Blood Urine Nitrate Urine Bilirubin Urine Urobilinogen Ur Leukocyte Esterase Urine RBC Urine WBC Ur Squamous Epith Cells Urine Bacteria Ur Culture Indicated? Micro UA Comment Nasal Screen MRSA (PCR) Negative for mrsa Ketones 04/16/18 04/16/18 04/16/18 04:45 04:48 04:48 WBC RBC Hgb Hct MCV MCH MCHC RDW Plt Count Neut % (Auto) Lymph % (Auto) [place] % (Auto) Eos % (Auto) Baso % (Auto) Neut # (Auto) VBG pH VBG pCO2 VBG pO2 VBG HCO3 VBG Total CO2 VBG O2 Saturation VBG Base Excess Sodium 142 Potassium 3.8 Chloride 112 H Carbon Dioxide 7 L* BUN 12 Creatinine 0.90 Estimated GFR > 60.0 BUN/Creatinine Ratio 13.3 Glucose 174 H Lactate Calcium 8.3 L Phosphorus 2.8 D Magnesium Total Bilirubin AST ALT Alkaline Phosphatase Total Protein Albumin Globulin Albumin/Globulin Ratio Procalcitonin 0.66 H TSH Serum , Qual Urine Color Yellow Urine Appearance Clear Urine pH 5.0 Ur Specific [place] 1.025 Urine Protein 1+ H Urine Glucose (UA) 2+ Urine Ketones 3+ H Urine Occult Blood 1+ H Urine Nitrate Negative Urine Bilirubin Negative Urine Urobilinogen 0.2 Ur Leukocyte Esterase Negative Urine RBC 0-1/hpf Urine WBC 1-5/hpf Ur Squamous Epith Cells 1-5 /hpf Urine Bacteria Few (2-10) H Ur Culture Indicated? Cult not indicated Micro UA Comment Not Reportable Nasal Screen MRSA (PCR) Ketones 04/16/18 04/16/18 04/16/18 09:12 13:15 13:15 WBC 13.9 H RBC 4.25 Hgb 13.0 Hct 38.2 MCV 90.0 D MCH 30.7 MCHC 34.1 RDW 13.0 Plt Count 307 Neut % (Auto) 75.8 H Lymph % (Auto) 9.8 L [place] % (Auto) 13.3 Eos % (Auto) 0.2 L Baso % (Auto) 0.9 Neut # (Auto) 31070 H VBG pH VBG pCO2 VBG pO2 VBG HCO3 VBG Total CO2 VBG O2 Saturation VBG Base Excess Sodium 143 143 Potassium 4.0 4.0 Chloride 115 H 113 H Carbon Dioxide 13 L 14 L BUN 11 10 Creatinine 0.70 0.70 Estimated GFR > 60.0 > 60.0 BUN/Creatinine Ratio 15.7 14.3 Glucose 178 H 141 H Lactate Calcium 8.2 L 8.7 Phosphorus 2.3 L Magnesium 1.6 Total Bilirubin AST ALT Alkaline Phosphatase Total Protein Albumin Globulin Albumin/Globulin Ratio Procalcitonin TSH Serum , Qual Urine Color Urine Appearance Urine pH Ur Specific [place] Urine Protein Urine Glucose (UA) Urine Ketones Urine Occult Blood Urine Nitrate Urine Bilirubin Urine Urobilinogen Ur Leukocyte Esterase Urine RBC Urine WBC Ur Squamous Epith Cells Urine Bacteria Ur Culture Indicated? Micro UA Comment Nasal Screen MRSA (PCR) Ketones 04/16/18 Unknown WBC RBC Hgb Hct MCV MCH MCHC RDW Plt Count Neut % (Auto) Lymph % (Auto) [place] % (Auto) Eos % (Auto) Baso % (Auto) Neut # (Auto) VBG pH VBG pCO2 VBG pO2 VBG HCO3 VBG Total CO2 VBG O2 Saturation VBG Base Excess Sodium Potassium Chloride Carbon Dioxide BUN Creatinine Estimated GFR BUN/Creatinine Ratio Glucose Lactate Calcium Phosphorus Magnesium Total Bilirubin AST ALT Alkaline Phosphatase Total Protein Albumin Globulin Albumin/Globulin Ratio Procalcitonin TSH Serum , Qual Negative Urine Color Urine Appearance Urine pH Ur Specific [place] Urine Protein Urine Glucose (UA) Urine Ketones Urine Occult Blood Urine Nitrate Urine Bilirubin Urine Urobilinogen Ur Leukocyte Esterase Urine RBC Urine WBC Ur Squamous Epith Cells Urine Bacteria Ur Culture Indicated? Micro UA Comment Nasal Screen MRSA (PCR) Ketones Assessment & Plan Plan: Assessment/Plan Narrative: 1. Acute diabetic ketoacidosis, present on admission. Active. -Patient started on DKA protocol including insulin gtt, IV fluids, and electrolyte repletion. -Monitored electrolytes and anion gap until closed. Initial anion gap 33. -Chest x-ray interpreted by me did not demonstrate any cardiopulmonary abnormality. Respiratory viral PCR and strep A screen were performed which were both negative. -Likely secondary to vulvar abscess as below. 2. Acute vulvar abscess status post I and D, present on admission. Active. -Patient reported cyst on vulva. On further exam, appears to be abscess with purulent discharge. -service center appraiser consulted and performed I&D. Wound culture and strep B sent, pending. -Started Bactrim double strength twice daily. Apply warm compresses to area per service center appraiser. 3. Frequent headaches, present on admit. Resolved. -Continue pain medication prn. Disposition: Depending upon stability of blood glucose and treatment of vulvar abscess can be discharged home in 1-2 days. Quality VTE Deep Vein Thrombosis/Pulmonary Embolism Present on Admission: No
[2018-04-17] VITALS: BP 121/62; PULSE 98; RESP 15; TEMP 36.9; O2SAT 100
[2018-04-17] MEDS: HYDROMORPHONE 1 MG INJ 0.5 MG IV ×6 (00:42→20:59)
[2018-04-17 04:54] VITALS: BP 115/56; PULSE 101; RESP 13; TEMP 36.7; O2SAT 98
[2018-04-17 05:00] LABS: Add Manual Diff / Slide Review NO; Basophils Percent Auto 0.6 % (0-2); Eosinophils Percent Auto 0.9 % (2-4); Hematocrit 36.4 % (36-46); Hemoglobin 12.3 g/dL (12.0-16.0); Lymphocytes Percent Auto 23.8 % (25-40); Mean Corpuscular HGB Conc 33.9 % (30-36); Mean Corpuscular Hemoglobin 30.5 PG (26-34); Mean Corpuscular Volume 90.1 fL (80-100); Monocytes Percent Auto 9.6 % (3-14); Neutrophils Absolute Auto 5600 /uL (1500-7000); Neutrophils Percent Auto 65.1 % (50-75); Platelet Count 257 X10^3/uL (150-400); Red Blood Cell Count 4.04 X10^6/uL (4.0-5.2); Red Cell Distribution Width 13.3 % (11.6-14.8); White Blood Cell Count 8.6 X10^3/uL (4.5-11.0)
[2018-04-17 05:08] LABS: Alanine Aminotransferase 13 IU/L (9-52); Albumin 3.5 g/dL (3.5-5.0); Albumin Globulin Ratio 1.2 (1.0-2.8); Alkaline Phosphatase 103 U/L (38-126); Aspartate Aminotransferase 14 IU/L (14-36); BUN Creatinine Ratio 16.3 (6-22); Bilirubin Total 0.4 mg/dL (0.2-1.3); Blood Urea Nitrogen 13 mg/dL (7-17); Calcium 8.4 mg/dL (8.4-10.2); Carbon Dioxide 15 mmol/L (22-32); Chloride 110 mmol/L (98-107); Estimated Glomerular Filt Rate > 60.0 mL/min (>60); Globulin 2.9 g/dL (1.7-4.1); Glucose 243 mg/dL (70-100); HEMOLYSIS < 15 (0-50); Magnesium 1.9 mg/dL (1.6-2.3); Potassium 3.3 mmol/L (3.4-5.1); Sodium 138 mmol/L (137-145); Total Protein 6.4 g/dL (6.3-8.2)
--- NOTE | 2018-04-17 07:02 | PM.PN.1 ---
Subjective Date Patient Seen: 04/17/18 Time Patient Seen: 07:02 Interval history: Patient states she is feeling sore in her vulvar area. Exam Vital Signs (past 8 hours): - 04/17/18 00:00 04/17/18 04:54 Temperature 98.5 F 98.1 F Pulse Rate 98 H 101 H Respiratory Rate 15 13 Blood Pressure 121/62 115/56 L Pulse Oximetry 100 98 Oxygen Delivery Method Room Air Oxygen Flow Rate 0 Narrative Exam Narrative: Not much significant change in the abscess. Objective Labs Result Diagrams: 04/17/18 04:30 04/17/18 04:30 Labs: Laboratory Results - last 24 hr 04/15/18 04/16/18 04/16/18 22:43 09:12 13:15 WBC 13.9 H RBC 4.25 Hgb 13.0 Hct 38.2 MCV 90.0 D MCH 30.7 MCHC 34.1 RDW 13.0 Plt Count 307 Neut % (Auto) 75.8 H Lymph % (Auto) 9.8 L [place] % (Auto) 13.3 Eos % (Auto) 0.2 L Baso % (Auto) 0.9 Neut # (Auto) 21112 H VBG pH Cancelled VBG pCO2 Cancelled VBG pO2 Cancelled VBG HCO3 Cancelled VBG Total CO2 Cancelled VBG O2 Saturation Cancelled VBG Base Excess Cancelled Sodium 143 Potassium 4.0 Chloride 115 H Carbon Dioxide 13 L BUN 11 Creatinine 0.70 Estimated GFR > 60.0 BUN/Creatinine Ratio 15.7 Glucose 178 H Calcium 8.2 L Phosphorus 2.3 L Magnesium 1.6 Total Bilirubin AST ALT Alkaline Phosphatase Total Protein Albumin Globulin Albumin/Globulin Ratio Chlamy pneumoniae PCR Adenovirus (PCR) B.parapertussis DNA PCR Coronavirus OC43 (PCR) Coronavirus HKU1 (PCR) Coronavirus 229E (PCR) Coronavirus NL63 (PCR) Human Metapneumovir PCR Influenza Type A (PCR) Influenza Type B (PCR) M. pneumoniae (PCR) Parainfluenza 1 (PCR) Parainfluenza 2 (PCR) Parainfluenza 3 (PCR) Parainfluenza 4 (PCR) RSV (PCR) Entero/Rhino (PCR) Group A Strep (PCR) Group B Strep (PCR) 04/16/18 04/16/18 04/16/18 13:15 16:00 16:00 WBC RBC Hgb Hct MCV MCH MCHC RDW Plt Count Neut % (Auto) Lymph % (Auto) [place] % (Auto) Eos % (Auto) Baso % (Auto) Neut # (Auto) VBG pH VBG pCO2 VBG pO2 VBG HCO3 VBG Total CO2 VBG O2 Saturation VBG Base Excess Sodium 143 Potassium 4.0 Chloride 113 H Carbon Dioxide 14 L BUN 10 Creatinine 0.70 Estimated GFR > 60.0 BUN/Creatinine Ratio 14.3 Glucose 141 H Calcium 8.7 Phosphorus Magnesium Total Bilirubin AST ALT Alkaline Phosphatase Total Protein Albumin Globulin Albumin/Globulin Ratio Chlamy pneumoniae PCR Adenovirus (PCR) B.parapertussis DNA PCR Coronavirus OC43 (PCR) Coronavirus HKU1 (PCR) Coronavirus 229E (PCR) Coronavirus NL63 (PCR) Human Metapneumovir PCR Influenza Type A (PCR) Influenza Type B (PCR) M. pneumoniae (PCR) Parainfluenza 1 (PCR) Parainfluenza 2 (PCR) Parainfluenza 3 (PCR) Parainfluenza 4 (PCR) RSV (PCR) Cancelled Entero/Rhino (PCR) Group A Strep (PCR) Negative Group B Strep (PCR) Cancelled 04/16/18 04/17/18 04/17/18 17:15 04:30 04:30 WBC 8.6 RBC 4.04 Hgb 12.3 Hct 36.4 MCV 90.1 MCH 30.5 MCHC 33.9 RDW 13.3 Plt Count 257 Neut % (Auto) 65.1 Lymph % (Auto) 23.8 L [place] % (Auto) 9.6 Eos % (Auto) 0.9 L Baso % (Auto) 0.6 Neut # (Auto) 5600 VBG pH VBG pCO2 VBG pO2 VBG HCO3 VBG Total CO2 VBG O2 Saturation VBG Base Excess Sodium 138 Potassium 3.3 L Chloride 110 H Carbon Dioxide 15 L BUN 13 Creatinine 0.80 Estimated GFR > 60.0 BUN/Creatinine Ratio 16.3 Glucose 243 H D Calcium 8.4 Phosphorus Magnesium 1.9 Total Bilirubin 0.4 AST 14 ALT 13 Alkaline Phosphatase 103 D Total Protein 6.4 Albumin 3.5 Globulin 2.9 Albumin/Globulin Ratio 1.2 Chlamy pneumoniae PCR Not detected Adenovirus (PCR) Not detected B.parapertussis DNA PCR Not detected Coronavirus OC43 (PCR) Not detected Coronavirus HKU1 (PCR) Not detected Coronavirus 229E (PCR) Not detected Coronavirus NL63 (PCR) Not detected Human Metapneumovir PCR Not detected Influenza Type A (PCR) Not detected Influenza Type B (PCR) Not detected M. pneumoniae (PCR) Not detected Parainfluenza 1 (PCR) Not detected Parainfluenza 2 (PCR) Not detected Parainfluenza 3 (PCR) Not detected Parainfluenza 4 (PCR) Not detected RSV (PCR) Not detected Entero/Rhino (PCR) Not detected Group A Strep (PCR) Group B Strep (PCR) Assessment & Plan (1) Vulvar abscess: Current visit: Yes Status: Acute Plan: Assessment/Plan Narrative: Patient's labs are better. Not significant improvement in the vulvar abscess at this point. I will re-evaluate the patient this evening to see if any further drainage needs to be performed. Continue antibiotics. Heat to the area would be appropriate. Quality VTE Deep Vein Thrombosis/Pulmonary Embolism Present on Admission: No
[2018-04-17 07:28] VITALS: BP 109/59; PULSE 97; RESP 13; TEMP 36.9; O2SAT 98
[2018-04-17] MEDS: INSULIN ASPART 100 UNIT/ML INSULN PEN SUBCUT ×4 (08:55→21:00)
[2018-04-17] MEDS: POTASSIUM CHLORIDE 20 MEQ TAB PO ×2 (08:56→17:21)
[2018-04-17] MEDS: TRIMETH/SULFA 160/800 (DS) TABLET 1 TAB PO ×2 (08:56→20:59)
[2018-04-17 12:00] VITALS: BP 127/67; PULSE 96; RESP 12; TEMP 36.9; O2SAT 98
[2018-04-17 12:24] LABS: Strep Grp B PCR POS for Grp B Strep
[2018-04-17] MEDS: INSULIN DEGLUDEC 32 EACH SUBCUT (12:38)
--- NOTE | 2018-04-17 15:34 | P.DS_ITS ---
History of Present Illness Date Patient Seen: 04/17/18 Time Patient Seen: 09:00 Chief complaint: trouble breathing Narrative: History of Present Illness Date Patient Seen: 04/16/18 Time Patient Seen: 00:16 Chief complaint: trouble breathing Narrative: This is a 28-year-old female patient who presents to the ER with what she reports as few hours of nausea abdominal pain shortness of breath. She states the onset of symptoms approximately 3:00 p.m. today. She has a history type 1 diabetes since had recurring episodes of diabetic ketoacidosis. She reports that she has been eating poorly for the last several days and had no palpitations dating 04/23 a cookie because she felt she may be hypoglycemic. Her routine medications for diabetes are Tresiba 32units daily she reports about 1:00 a.m. in the afternoon and uses a prandial sliding scale Novalog She has had no other recent illness or prodromal symptoms denies cold or flu symptoms. She has had no cough or chest congestion and denies abdominal pain or change in stool habits. The patient has been under the care of [facility] endocrinology. Patient's last admit for DKA was late spring. She does have history of migraines but none for 8 years has had a history of recurrent UTIs but denies symptoms frequency urgency or burning. She had a past medical history of pyelo nephritis as well as renal calculi removed by endoscopy and laser approximately 4 years ago. She reports she has had 15 ureteral stents placed. She reports irregular menstruation with her last menstrual period being 2 months ago and light in flow. She states she is sexually active and has never been . On presentation to the ER the patient was found to be tachycardic tachypneic with abdominal pain for which he received 0.5 mg of Dilaudid with resolution of pain. On ABG the patient had a pH of 6.97 with a pCO2 of 16.2 a PO2 of 53 and a bicarb of 4 with a base excess of -28. Potassium was 4.8 and magnesium and phosphorus as well as serum were added to labs drawn . In ER the patient was started on insulin drip and IV fluid bolusing initiated. The patient will be admitted to the ICU for close monitoring, hourly Accu-Cheks and serial labs and titration of insulin. Discharge Providers Date of admission: 04/15/18 23:49 Primary care physician: Hola Hernandez MD Consults: 04/16/18 01:23 Consult to Dietitian, Adult Routine Comment: Reason For Exam: Diabet 04/16/18 01:36 Consult to Dietitian, Adult Routine Comment: Poor eating habits, brittle diabetic Reason For Exam: Diabetic ketoacidosis 04/16/18 02:01 Consult to Dietitian, Adult Routine Comment: Reason For Exam: Severe disinterest in food. Type 1 Diabetic 04/16/18 14:53 Consult to Wound Care Stat Comment: right vulvar abscess/purulent drainage Consulting Provider: [facility] 04/16/18 15:55 Consult to Physician Routine Comment: Consulting Provider: Martha Herron Reason for consultation: Right vulvar abscess Discharge provider: Simeon Jhaveri DO Discharge Date: 04/17/18 Summary Discharge Diagnosis: DKA; BACK ON HOME MEDS VULVA ABSCESS; OUTPATIENT MANAGEMENT DM I HYPOKALEMIA Hospital Course: - PATIENT ADMITTED WITH DKA AND DOES HAVE A HX OF DM1 - SHE WAS TREATED WITH AN INSULIN DRIP AND NOW IS BACK ON HOME MEDS - STILL WITH SLIGHT ELEVATED GAP; WILL HOWEVER NOT RESTART ON THE DRIP AND CONT ISS AND HOME MEDS - SHE ALSO HAVE A VULVA ABSCESS WHICH IS BEING MANAGED BY LAND SURVEYOR MANAGER - THIS COULD BE FOLLOW OUTPATIENT AFTER EVAL BY LAND SURVEYOR MANAGER IN HOUSE TODAY - PATIENT CONTINUED ON ABX FOR A TOTAL OF TEN DAYS - ADDITIONAL MANAGEMENT PER OUTPATIENT PROVIDERS Status at Discharge Cognitive/behavioral status at discharge: STABLE AT BASELINE TO HOME Functional status at discharge: independent ambulation Overall status at discharge: patient is back to baseline Time Spent with Patient Greater than 30 minutes Exam Vital Signs (past 8 hours): - 04/17/18 07:28 04/17/18 12:00 Temperature 98.5 F 98.4 F Pulse Rate 97 H 96 H Respiratory Rate 13 12 Blood Pressure 109/59 L 127/67 Pulse Oximetry 98 98 Oxygen Delivery Method Room Air Oxygen Flow Rate 0 Narrative Exam Narrative: NO ACUTE DISTRESS. PATIENT IS ALERT ORIENTED X3. VITAL SIGNS STABLE HEAD ATRAUMATIC NORMOCEPHALIC NECK : SUPPLE WITHOUT ADENOPATHY NO CAROTID BRUITS EYE: EOMI, PERRLA, NORMAL CONJUNCTIVA; NO JAUNDICE CHEST: REGULAR RATE. NO RUBS. PMI IS NON DISPLACED. NO MURMURS; NORMAL S1- S2 PULMONARY: DECREASED BS OVER THE BASES. MILD BIBASILAR CRACKLES NOTED; NO INCREASED DULLNESS TO PERCUSSION ABDOMEN: SOFT. NONTENDER. NONDISTENDED. BOWEL SOUNDS ARE PRESENT IN ALL 4 QUADRANTS. NO MASS. EXTREMITIES: NO EDEMA.. NO CYANOSIS CLUBBING NOTED. NEURO: CRANIAL NERVES 2-12 GROSSLY INTACT. NO FOCAL NEUROLOGICAL DEFICIT NOTED. MSK: NORMAL RANGE OF MOTION FOR AGE. NO JOINT EFFUSION. SKIN: NORMAL FOR ETHNICITY; NO ECCHYMOSIS. NO LESION. GOOD TURGOR.; NO RASHES : NORMAL EXTERNAL GENITALIA. PSYCH : APPROPRIATE MOOD AND AFFECT. ALERT AWAKE ORIENTED X3 Objective Labs Result Diagrams: 04/17/18 04:30 04/17/18 04:30 Labs: Laboratory Results - last 24 hr 04/15/18 04/16/18 04/16/18 22:43 16:00 16:00 WBC RBC Hgb Hct MCV MCH MCHC RDW Plt Count Neut % (Auto) Lymph % (Auto) [place] % (Auto) Eos % (Auto) Baso % (Auto) Neut # (Auto) VBG pH Cancelled VBG pCO2 Cancelled VBG pO2 Cancelled VBG HCO3 Cancelled VBG Total CO2 Cancelled VBG O2 Saturation Cancelled VBG Base Excess Cancelled Sodium Potassium Chloride Carbon Dioxide BUN Creatinine Estimated GFR BUN/Creatinine Ratio Glucose Calcium Magnesium Total Bilirubin AST ALT Alkaline Phosphatase Total Protein Albumin Globulin Albumin/Globulin Ratio Chlamy pneumoniae PCR Adenovirus (PCR) B.parapertussis DNA PCR Coronavirus OC43 (PCR) Coronavirus HKU1 (PCR) Coronavirus 229E (PCR) Coronavirus NL63 (PCR) Human Metapneumovir PCR Influenza Type A (PCR) Influenza Type B (PCR) M. pneumoniae (PCR) Parainfluenza 1 (PCR) Parainfluenza 2 (PCR) Parainfluenza 3 (PCR) Parainfluenza 4 (PCR) RSV (PCR) Cancelled Entero/Rhino (PCR) Group A Strep (PCR) Negative Group B Strep (PCR) Cancelled 04/16/18 04/16/18 04/17/18 17:14 17:15 04:30 WBC RBC Hgb Hct MCV MCH MCHC RDW Plt Count Neut % (Auto) Lymph % (Auto) [place] % (Auto) Eos % (Auto) Baso % (Auto) Neut # (Auto) VBG pH VBG pCO2 VBG pO2 VBG HCO3 VBG Total CO2 VBG O2 Saturation VBG Base Excess Sodium 138 Potassium 3.3 L Chloride 110 H Carbon Dioxide 15 L BUN 13 Creatinine 0.80 Estimated GFR > 60.0 BUN/Creatinine Ratio 16.3 Glucose 243 H D Calcium 8.4 Magnesium 1.9 Total Bilirubin 0.4 AST 14 ALT 13 Alkaline Phosphatase 103 D Total Protein 6.4 Albumin 3.5 Globulin 2.9 Albumin/Globulin Ratio 1.2 Chlamy pneumoniae PCR Not detected Adenovirus (PCR) Not detected B.parapertussis DNA PCR Not detected Coronavirus OC43 (PCR) Not detected Coronavirus HKU1 (PCR) Not detected Coronavirus 229E (PCR) Not detected Coronavirus NL63 (PCR) Not detected Human Metapneumovir PCR Not detected Influenza Type A (PCR) Not detected Influenza Type B (PCR) Not detected M. pneumoniae (PCR) Not detected Parainfluenza 1 (PCR) Not detected Parainfluenza 2 (PCR) Not detected Parainfluenza 3 (PCR) Not detected Parainfluenza 4 (PCR) Not detected RSV (PCR) Not detected Entero/Rhino (PCR) Not detected Group A Strep (PCR) Group B Strep (PCR) Pos for grp b strep H 04/17/18 04:30 WBC 8.6 RBC 4.04 Hgb 12.3 Hct 36.4 MCV 90.1 MCH 30.5 MCHC 33.9 RDW 13.3 Plt Count 257 Neut % (Auto) 65.1 Lymph % (Auto) 23.8 L [place] % (Auto) 9.6 Eos % (Auto) 0.9 L Baso % (Auto) 0.6 Neut # (Auto) 5600 VBG pH VBG pCO2 VBG pO2 VBG HCO3 VBG Total CO2 VBG O2 Saturation VBG Base Excess Sodium Potassium Chloride Carbon Dioxide BUN Creatinine Estimated GFR BUN/Creatinine Ratio Glucose Calcium Magnesium Total Bilirubin AST ALT Alkaline Phosphatase Total Protein Albumin Globulin Albumin/Globulin Ratio Chlamy pneumoniae PCR Adenovirus (PCR) B.parapertussis DNA PCR Coronavirus OC43 (PCR) Coronavirus HKU1 (PCR) Coronavirus 229E (PCR) Coronavirus NL63 (PCR) Human Metapneumovir PCR Influenza Type A (PCR) Influenza Type B (PCR) M. pneumoniae (PCR) Parainfluenza 1 (PCR) Parainfluenza 2 (PCR) Parainfluenza 3 (PCR) Parainfluenza 4 (PCR) RSV (PCR) Entero/Rhino (PCR) Group A Strep (PCR) Group B Strep (PCR) Discharge Plan Discharge Plan Patient Disposition: Home Discharge comment: DC TO HOME ACT [facility] DIET AVOID TOBACCO OR ETOH PRODUCTS F/U WITH PCP AND LAND SURVEYOR MANAGER 3-10 DAYS Discharge Med Rec/Prescriptions Prescriptions: New sulfamethoxazole-trimethoprim 800-160 mg Tablet 1 tab PO BID 10 Days Qty: 20 RF: 0 hydrocodone-acetaminophen [[place]] 5-325 mg tablet 1 tab PO Q4-6H PRN (Reason: pain (scale score 7-10)) Qty: 20 RF: 0 Continue Tresiba FlexTouch U-100 32 units Sub-Q DAILY RF: 0 Novolog Flexpen U-100 Insulin 5 - 15 units Sub-Q TID RF: 0 Provider Discharge Instructions Diet: Carb-consistent/Diabetic Skin/Wound/Dressing Care Report to your healthcare provider any signs of infection, such as:: chills, fever, night sweats, increased pain, unusual drainage and unusual redness Discharge Data Primary Care Provider: Hola Hernandez Attending Provider: Julio Cesar Spicer Admit Date/Time: 04/15/18 23:49 Quality VTE Deep Vein Thrombosis/Pulmonary Embolism Present on Admission: No
[2018-04-17 16:00] VITALS: BP 127/75; PULSE 96; RESP 14; TEMP 36.9; O2SAT 96
[2018-04-17] MEDS: SODIUM BICARBONATE 650 MG TABLET 1300 MG PO (16:23)
--- NOTE | 2018-04-17 16:36 | PC.NURSE ---
Addendum entered by Sadie Goode R.N. 04/17/18 20:40: Dr. Herron in to see pt. Plan is to take pt to OR tomorrow afternoon. Pt allowed to eat breakfast. Right vulva is red, swollen, with yellow-green purulent scab to distal portion. Scant drainage on peripad. pt reports increased pain to vulva after physician exam. Called On-call BUSINESS INTELLIGENCE ADMINISTRATOR for meds. Original Note: moris note pt had a nose bleed from right nare. Ice pack applied. Pt c/o epigastic, abd and vulvar pain. Pt does not feel ready to discharge home. Called Dr. Grajeda to discuss. Still waiting for reevaluation by gynecology. Order received for CMP lab.
[2018-04-17 17:25] LABS: Alanine Aminotransferase 20 IU/L (9-52); Albumin 3.4 g/dL (3.5-5.0); Albumin Globulin Ratio 1.2 (1.0-2.8); Alkaline Phosphatase 109 U/L (38-126); Aspartate Aminotransferase 13 IU/L (14-36); BUN Creatinine Ratio 16.3 (6-22); Bilirubin Total 0.3 mg/dL (0.2-1.3); Blood Urea Nitrogen 13 mg/dL (7-17); Calcium 8.6 mg/dL (8.4-10.2); Carbon Dioxide 21 mmol/L (22-32); Chloride 109 mmol/L (98-107); Estimated Glomerular Filt Rate > 60.0 mL/min (>60); Globulin 2.8 g/dL (1.7-4.1); Glucose 256 mg/dL (70-100); HEMOLYSIS < 15 (0-50); Potassium 3.6 mmol/L (3.4-5.1); Sodium 141 mmol/L (137-145); Total Protein 6.2 g/dL (6.3-8.2)
--- NOTE | 2018-04-17 18:36 | PM.PN.1 ---
Subjective Date Patient Seen: 04/17/18 Time Patient Seen: 18:36 Interval history: Vulvar abscess Exam Vital Signs (past 8 hours): - 04/17/18 12:00 04/17/18 16:00 Temperature 98.4 F 98.4 F Pulse Rate 96 H 96 H Respiratory Rate 12 14 Blood Pressure 127/67 127/75 Pulse Oximetry 98 96 Oxygen Delivery Method Room Air Oxygen Flow Rate 0 Narrative Exam Narrative: There is no improvement in the vulvar abscess and she is not draining any past. Objective Labs Result Diagrams: 04/17/18 04:30 04/17/18 16:59 Labs: Laboratory Results - last 24 hr 04/16/18 04/16/18 04/17/18 17:14 17:15 04:30 WBC RBC Hgb Hct MCV MCH MCHC RDW Plt Count Neut % (Auto) Lymph % (Auto) [place] % (Auto) Eos % (Auto) Baso % (Auto) Neut # (Auto) Sodium 138 Potassium 3.3 L Chloride 110 H Carbon Dioxide 15 L BUN 13 Creatinine 0.80 Estimated GFR > 60.0 BUN/Creatinine Ratio 16.3 Glucose 243 H D Calcium 8.4 Magnesium 1.9 Total Bilirubin 0.4 AST 14 ALT 13 Alkaline Phosphatase 103 D Total Protein 6.4 Albumin 3.5 Globulin 2.9 Albumin/Globulin Ratio 1.2 Chlamy pneumoniae PCR Not detected Adenovirus (PCR) Not detected B.parapertussis DNA PCR Not detected Coronavirus OC43 (PCR) Not detected Coronavirus HKU1 (PCR) Not detected Coronavirus 229E (PCR) Not detected Coronavirus NL63 (PCR) Not detected Human Metapneumovir PCR Not detected Influenza Type A (PCR) Not detected Influenza Type B (PCR) Not detected M. pneumoniae (PCR) Not detected Parainfluenza 1 (PCR) Not detected Parainfluenza 2 (PCR) Not detected Parainfluenza 3 (PCR) Not detected Parainfluenza 4 (PCR) Not detected RSV (PCR) Not detected Entero/Rhino (PCR) Not detected Group B Strep (PCR) Pos for grp b strep H 04/17/18 04/17/18 04:30 16:59 WBC 8.6 RBC 4.04 Hgb 12.3 Hct 36.4 MCV 90.1 MCH 30.5 MCHC 33.9 RDW 13.3 Plt Count 257 Neut % (Auto) 65.1 Lymph % (Auto) 23.8 L [place] % (Auto) 9.6 Eos % (Auto) 0.9 L Baso % (Auto) 0.6 Neut # (Auto) 5600 Sodium 141 Potassium 3.6 Chloride 109 H Carbon Dioxide 21 L BUN 13 Creatinine 0.80 Estimated GFR > 60.0 BUN/Creatinine Ratio 16.3 Glucose 256 H Calcium 8.6 Magnesium Total Bilirubin 0.3 AST 13 L ALT 20 Alkaline Phosphatase 109 Total Protein 6.2 L Albumin 3.4 L Globulin 2.8 Albumin/Globulin Ratio 1.2 Chlamy pneumoniae PCR Adenovirus (PCR) B.parapertussis DNA PCR Coronavirus OC43 (PCR) Coronavirus HKU1 (PCR) Coronavirus 229E (PCR) Coronavirus NL63 (PCR) Human Metapneumovir PCR Influenza Type A (PCR) Influenza Type B (PCR) M. pneumoniae (PCR) Parainfluenza 1 (PCR) Parainfluenza 2 (PCR) Parainfluenza 3 (PCR) Parainfluenza 4 (PCR) RSV (PCR) Entero/Rhino (PCR) Group B Strep (PCR) Assessment & Plan (1) Vulvar abscess: Current visit: Yes Status: Acute Plan: Assessment/Plan Narrative: I will add the patient on to surgery schedule tomorrow afternoon to I and D the abscess. We will make her NPO after breakfast tomorrow in put her on D5 LR and insulin. Time Spent With Patient Time with patient: less than 15 minutes Quality VTE Deep Vein Thrombosis/Pulmonary Embolism Present on Admission: No
[2018-04-17 19:19] VITALS: BP 122/69; PULSE 101; RESP 15; TEMP 36.8; O2SAT 96
[2018-04-17] MEDS: HYDROCODONE/ACET 5/325 TABLET 1 TAB PO (19:56)
[2018-04-18] VITALS (15 sets, daily range): BP systolic 103–133; BP diastolic 53–82; PULSE 81–104; RESP 10–18; TEMP 36.2–37.1; O2SAT 93–100; BMI 21.3
[2018-04-18] MEDS: HYDROCODONE/ACET 5/325 TABLET 1 TAB PO ×3 (02:04→18:53)
[2018-04-18] MEDS: HYDROMORPHONE 1 MG INJ 0.5 MG IV ×2 (03:47→12:23)
--- NOTE | 2018-04-18 07:59 | PM.PREOP ---
Pre-operative Note Interval Note Pre-op Check: Yes History & Physical Reviewed by Physician and Yes Exam Performed Changes: No
[2018-04-18] MEDS: LACTATED RINGERS 1,000 ML 42 ML IV (08:59)
--- NOTE | 2018-04-18 10:23 | SUR.OPER ---
Lithotomy on padded OR bed, head on pillow, arms secured on padded arm boards at <90 degrees abduction. Legs secured in padded yellow fins stirrups.
--- NOTE | 2018-04-18 10:47 | PC.NURSE ---
PT LEFT TO OR AT APPROX 0900- FOR SCHEDULED I&D OF VULVAR ABCESS, SIG OTHER AT BEDSIDE-
[2018-04-18] MEDS: CEFAZOLIN 1 GM VIAL IV (11:02)
--- NOTE | 2018-04-18 11:21 | PM.OP.1 ---
Operative Date/Time/Diagnoses Date of procedure: 04/18/18 Time of procedure: 11:21 Pre-op diagnosis: Vulvar abscess Post-op diagnosis: same Procedure & Clinicians Procedure: I and D of vulvar abscess Same procedure as scheduled: Yes Indications: Vulvar abscess that did not respond to I and D in the ICU Surgeon: Martha Herron Click Yes if Unassisted: Yes Anesthesia Type: General Operative Notes Findings: Right vulvar abscess Closure Type: not applicable Specimen(s): none sent Applied: other (Approximately 6 cm of quarter-inch iodoform gauze packing) Estimated Blood Loss (mL): 20 Blood products transfused: none Procedure in detail: Patient was brought the operating room where she underwent general anesthesia. She was prepped and draped in usual sterile fashion. 1 g of Ancef was in prior to beginning of the case. Warming was with blankets. Pulsatile stockings were in place. An incision was made over the abscess with the scalpel. The abscess pocket was cleaned and irrigated. Packing was placed. Patient went to recovery room in good condition. Counts of instruments and sponges were correct. Complications: none Condition: stable Disposition: same day surgery Plan for aftercare: Patient is to be discharged home to follow up for packing change in 3 days
[2018-04-18] MEDS: fentaNYL 100 MCG/2 ML INJ 50 MCG IV ×2 (11:28→11:44)
[2018-04-18] MEDS: TRIMETH/SULFA 160/800 (DS) TABLET 1 TAB PO (13:41)
[2018-04-18] MEDS: INSULIN DEGLUDEC 32 EACH SUBCUT (13:41)
--- NOTE | 2018-04-18 13:45 | PC.NURSE ---
pt returned from or with small amount of packing to right labia and pad with scant -small amount sero-sang drainage. plan is for discharge to home later this pm with follow up on Saturday with Dr. Herron- initially medicated with iv dilaudid and then as she was able to take po without nausea- medicated with vicodin x 1 - also restarted tresiba ( home insulin) and given po abx - pt sleepy but appropriate sig other at bedside and has been given her own insulin from home and has already filled d/c rx ( pain rx and abx) planning to d/c later
--- NOTE | 2018-04-18 15:45 | CM.DPC ---
DCP: continued: case again received, EMR reviewed and discussed with hospitalist in [facility]. He stated pt was ok for d/c from his standpoint. She was to go to surgery to day with Dr. Herron for labial abscess. She did return from surgery mid afternoon and plan at this point is for home later this evening when she is fully recovered.
[2018-04-18] MEDS: INSULIN ASPART 100 UNIT/ML INSULN PEN SUBCUT (17:12)
== END 2018-04-18 19:00 | disposition home or self-care (01) | DRG 988 ==
LOC: ED 23:46 → ICU 23:51
PROVIDERS: Hospitalist; Internal Medicine; Specialist; Admitting Provider Nurse Practitioner Adult Health; Emergency Provider Emergency Medicine; Family Provider Internal Medicine; PCP Internal Medicine; Visit Provider Nurse Practitioner Adult Health
DX: E10.10 Type 1 diabetes mellitus with ketoacidosis without coma (principal); N76.4 Abscess of vulva; R51 Headache; E87.6 Hypokalemia
CPT/HCPCS: 36415; 36591; 56405; 71045; 80048; 80053; 81001; 82009; 82805; 82962; 83605; 83735; 84100; 84145; 84443; 84703; 85025; 87040; 87070; 87075; 87077; 87147; 87205; 87633; 87651; 87653; 87797; 94762; 96361; 96365; 96375; 99231; 99253; 99283; 99284; J0690; J1170; J2250; J2405; J2704; J2765; J3010

== ENCOUNTER 2018-04-28 14:32 | Emergency (ER) | payer OTHER, MEDICAID, SELFPAY ==
[2018-04-16 00:19] VITALS: BMI 20.6
[2018-04-28 14:50] VITALS: BP 119/79; PULSE 64; RESP 18; TEMP 36.1; O2SAT 100
--- NOTE | 2018-04-28 15:57 | ED.RECABL ---
HPI - Recheck/Abnormal Lab/Rx <Sierra Villalobos PA-C - Last Filed: 04/28/18 22:17> General Chief Complaint: Recheck/Abnormal Lab/Rx Stated Complaint: Surgical packing needs removed Time Seen by Provider: 04/28/18 16:20 Source: patient Mode of arrival: ambulatory Limitations: no limitations History of Present Illness HPI narrative: This 28-year-old female comes to ED due to have packing removed following I&D of vulvar abscess. She was taken to the OR for I&D 04/18. Packing was changed in the clinic 04/21 and was supposed to be removed fully 2 days later, however she was told her insurance is not accepted at the [facility], and she does not have a PCP for this currently, so presents for this now. She states the area is a bit tender around the packing, but not having any drainage or new swelling. Not having any fever. Blood sugars still somewhat high. She finished her last dose of antibiotic today. Related Data Home Medications Medication Instructions Recorded Confirmed Novolog Flexpen U-100 Insulin 5 - 15 units SUB-Q TID 10/29/17 04/21/18 insulin degludec [Tresiba 32 units SUB-Q DAILY #0 10/29/17 04/28/18 FlexTouch U-100] sulfamethoxazole-trimethoprim 1 tab PO BID 04/28/18 04/28/18 Previous Rx's Medication Instructions Recorded hydrocodone-acetaminophen [[place]] 1 tab PO Q4-6H PRN #20 tab 04/17/18 amoxicillin 500 mg capsule 500 mg PO TID #21 cap 04/21/18 Allergies Allergy/AdvReac Type Severity Reaction Status Date / Time abdalla [ABDALLA] Allergy Intermediate Hives, Verified 04/28/18 14:54 pruritus iodine [IODINE] Allergy Intermediate rash, itchy Verified 04/28/18 14:54 morphine Allergy Intermediate Difficulty Verified 04/28/18 14:54 Breathing shellfish derived Allergy Intermediate rash Verified 04/28/18 14:54 [SHELLFISH DERIVED] adhesive [ADHESIVE] Allergy Unknown tape Verified 04/28/18 14:54 latex [LATEX] Allergy Unknown Hives Verified 04/28/18 14:54 Review of Systems <Sierra Villalobos PA-C - Last Filed: 04/28/18 22:17> Review of Systems All systems reviewed & are unremarkable except as noted in HPI and below Exam <SCOTTY Reece Last Filed: 04/28/18 22:17> Narrative Exam Narrative: GENERAL APPEARANCE: Patient sitting comfortably, in no distress. LUNGS: Clear to auscultation bilaterally. HEART: Rate and rhythm regular without murmur, normal S1 and S2, no S3 or S4. DERMATOLOGIC: Right inferior labia I cannot visualize any packing protruding There is some generalized erythema over both labia, mild edema over the incision site. No drainage. After warm packing I still do not visualize any packing. Patient is very tender over the surgical wound site Initial Vital Signs Initial Vital Signs: Vital Signs Temperature 97.0 F L 04/28/18 14:50 Pulse Rate 64 04/28/18 14:50 Respiratory Rate 18 04/28/18 14:50 Blood Pressure 119/79 04/28/18 14:50 Pulse Oximetry 100 04/28/18 14:50 <Megan Luevano DO - Last Filed: 05/02/18 08:12> Initial Vital Signs Initial Vital Signs: Vital Signs Temperature 97.0 F L 04/28/18 14:50 Pulse Rate 64 04/28/18 14:50 Respiratory Rate 18 04/28/18 14:50 Blood Pressure 119/79 04/28/18 14:50 Pulse Oximetry 100 04/28/18 14:50 Course <SCOTTY Reece Last Filed: 04/28/18 22:17> Additional Information: Patient still has some edema and significant tenderness around the wound site though no drainage. This does not appear acutely infected. I do not see any retained packing today though this was supposed to be removed 5 days ago. Advised I would like to have her recheck with [facility] again given the persistent pain and irritation. She did not see any packing fall out but it may have. Reassured her that her visit should be within the global postoperative period since she is concerned about insurance charges Vital Signs - 8 hr 04/28/18 14:50 04/28/18 17:17 Temperature 97.0 F L Pulse Rate 64 99 H Respiratory Rate 18 16 Blood Pressure 119/79 121/82 Pulse Oximetry 100 100 <Megan Luevano DO - Last Filed: 05/02/18 08:12> Vital Signs - 8 hr 04/28/18 14:50 04/28/18 17:17 Temperature 97.0 F L Pulse Rate 64 99 H Respiratory Rate 18 16 Blood Pressure 119/79 121/82 Pulse Oximetry 100 100 Discharge Plan Departure Patient Disposition: Home Clinical Impression: Abscess of vulva Discharge Date/Time: 04/28/18 17:18 Interventions: ED Discharge Assessment Last Done: 04/28/18 17:17 Activity Restrictions/Additional Instructions: Your incision site does not look infected, however it is somewhat irregular and quite tender. I do not see any packing there today, so this may have fallen out or it is possible that the tissue has grown over since it was supposed to come out last week, though I do not see any sign of that now. Please leave the area open to air as much as possible (i.e at night). Avoid any irritants (powders, scented liners, etc). I would like you to recheck this with Dr. Herron after a couple of days off anitbiotics. We have scheduled you with her 04/30 (Saturday) at 830 a.m. Typically these recheck visits would be covered under the surgery and follow up charge and not billed separately. Prescriptions: No Action amoxicillin 500 mg capsule 500 mg PO TID Qty: 21 RF: 0 insulin degludec [Tresiba FlexTouch U-100] 100 unit/mL (3 mL) Insulin Pen 32 units Sub-Q DAILY Qty: 0 RF: 0 Novolog Flexpen U-100 Insulin 5 - 15 units Sub-Q TID RF: 0 sulfamethoxazole-trimethoprim 800-160 mg tablet 1 tab PO BID RF: 0 hydrocodone-acetaminophen [[place]] 5-325 mg tablet 1 tab PO Q4-6H PRN (Reason: pain (scale score 7-10)) Qty: 20 RF: 0 Referrals: Martha Herron MD [Physician] - <Megan Luevano DO - Last Filed: 05/02/18 08:12> Cosign ED Attending Cosignature Attestation: I was immediately available in the department for consultation. Documentation has been reviewed. I agree with assessment and plan.
--- NOTE | 2018-04-28 16:39 | ED_ITS ---
HPI - Recheck/Abnormal Lab/Rx <Sierra Villalobos PA-C - Last Filed: 04/28/18 22:17> General Chief Complaint: Recheck/Abnormal Lab/Rx Stated Complaint: Surgical packing needs removed Time Seen by Provider: 04/28/18 16:20 Source: patient Mode of arrival: ambulatory Limitations: no limitations History of Present Illness HPI narrative: This 28-year-old female comes to ED due to have packing removed following I&D of vulvar abscess. She was taken to the OR for I&D 04/18. Packing was changed in the clinic 04/21 and was supposed to be removed fully 2 days later, however she was told her insurance is not accepted at the [facility] , and she does not have a PCP for this currently, so presents for this now. She states the area is a bit tender around the packing, but not having any drainage or new swelling. Not having any fever. Blood sugars still somewhat high. She finished her last dose of antibiotic today. Related Data Home Medications Medication Instructions Recorded Confirmed Novolog Flexpen U-100 Insulin 5 - 15 units SUB-Q TID 10/29/17 04/21/18 insulin degludec [Tresiba 32 units SUB-Q DAILY #0 10/29/17 04/28/18 FlexTouch U-100] sulfamethoxazole-trimethoprim 1 tab PO BID 04/28/18 04/28/18 Previous Rx's Medication Instructions Recorded hydrocodone-acetaminophen [[place]] 1 tab PO Q4-6H PRN #20 tab 04/17/18 amoxicillin 500 mg capsule 500 mg PO TID #21 cap 04/21/18 Allergies Allergy/AdvReac Type Severity Reaction Status Date / Time abdalla [ABDALLA] Allergy Intermediate Hives, Verified 04/28/18 14:54 pruritus iodine [IODINE] Allergy Intermediate rash, itchy Verified 04/28/18 14:54 morphine Allergy Intermediate Difficulty Verified 04/28/18 14:54 Breathing shellfish derived Allergy Intermediate rash Verified 04/28/18 14:54 [SHELLFISH DERIVED] adhesive [ADHESIVE] Allergy Unknown tape Verified 04/28/18 14:54 latex [LATEX] Allergy Unknown Hives Verified 04/28/18 14:54 Review of Systems <Sierra Villalobos PA-C - Last Filed: 04/28/18 22:17> Review of Systems All systems reviewed & are unremarkable except as noted in HPI and below Exam <SCOTTY Reece Last Filed: 04/28/18 22:17> Narrative Exam Narrative: GENERAL APPEARANCE: Patient sitting comfortably, in no distress. LUNGS: Clear to auscultation bilaterally. HEART: Rate and rhythm regular without murmur, normal S1 and S2, no S3 or S4. DERMATOLOGIC: Right inferior labia I cannot visualize any packing protruding There is some generalized erythema over both labia, mild edema over the incision site. No drainage. After warm packing I still do not visualize any packing. Patient is very tender over the surgical wound site Initial Vital Signs Initial Vital Signs: Vital Signs Temperature 97.0 F L 04/28/18 14:50 Pulse Rate 64 04/28/18 14:50 Respiratory Rate 18 04/28/18 14:50 Blood Pressure 119/79 04/28/18 14:50 Pulse Oximetry 100 04/28/18 14:50 <Megan Luevano DO - Last Filed: 05/02/18 08:12> Initial Vital Signs Initial Vital Signs: Vital Signs Temperature 97.0 F L 04/28/18 14:50 Pulse Rate 64 04/28/18 14:50 Respiratory Rate 18 04/28/18 14:50 Blood Pressure 119/79 04/28/18 14:50 Pulse Oximetry 100 04/28/18 14:50 Course <SCOTTY Reece Last Filed: 04/28/18 22:17> Additional Information: Patient still has some edema and significant tenderness around the wound site though no drainage. This does not appear acutely infected. I do not see any retained packing today though this was supposed to be removed 5 days ago. Advised I would like to have her recheck with [facility] again given the persistent pain and irritation. She did not see any packing fall out but it may have. Reassured her that her visit should be within the global postoperative period since she is concerned about insurance charges Vital Signs - 8 hr 04/28/18 14:50 04/28/18 17:17 Temperature 97.0 F L Pulse Rate 64 99 H Respiratory Rate 18 16 Blood Pressure 119/79 121/82 Pulse Oximetry 100 100 <Megan Luevano DO - Last Filed: 05/02/18 08:12> Vital Signs - 8 hr 04/28/18 14:50 04/28/18 17:17 Temperature 97.0 F L Pulse Rate 64 99 H Respiratory Rate 18 16 Blood Pressure 119/79 121/82 Pulse Oximetry 100 100 Discharge Plan Departure Patient Disposition: Home Clinical Impression: Abscess of vulva Discharge Date/Time: 04/28/18 17:18 Interventions: ED Discharge Assessment Last Done: 04/28/18 17:17 Activity Restrictions/Additional Instructions: Your incision site does not look infected, however it is somewhat irregular and quite tender. I do not see any packing there today, so this may have fallen out or it is possible that the tissue has grown over since it was supposed to come out last week, though I do not see any sign of that now. Please leave the area open to air as much as possible (i.e at night). Avoid any irritants ( powders, scented liners, etc). I would like you to recheck this with Dr. Herron after a couple of days off anitbiotics. We have scheduled you with her 04/30 ( Saturday) at 830 a.m. Typically these recheck visits would be covered under the surgery and follow up charge and not billed separately. Prescriptions: No Action amoxicillin 500 mg capsule 500 mg PO TID Qty: 21 RF: 0 insulin degludec [Tresiba FlexTouch U-100] 100 unit/mL (3 mL) Insulin Pen 32 units Sub-Q DAILY Qty: 0 RF: 0 Novolog Flexpen U-100 Insulin 5 - 15 units Sub-Q TID RF: 0 sulfamethoxazole-trimethoprim 800-160 mg tablet 1 tab PO BID RF: 0 hydrocodone-acetaminophen [[place]] 5-325 mg tablet 1 tab PO Q4-6H PRN (Reason: pain (scale score 7-10)) Qty: 20 RF: 0 Referrals: Martha Herron MD [Physician] - <Megan Luevano DO - Last Filed: 05/02/18 08:12> Cosign ED Attending Cosignature Attestation: I was immediately available in the department for consultation. Documentation has been reviewed. I agree with assessment and plan.
[2018-04-28 17:17] VITALS: BP 121/82; PULSE 99; RESP 16; O2SAT 100
== END 2018-04-28 17:18 | disposition home or self-care (01) ==
PROVIDERS: Emergency Provider Internal Medicine
DX: N76.4 Abscess of vulva (principal)
CPT/HCPCS: 99282

== ENCOUNTER 2018-05-06 11:05 | Inpatient (IN) | payer MEDICAID, SELFPAY ==
[2018-04-16 00:19] VITALS: BMI 20.6
[2018-05-06] VITALS (14 sets, daily range): BP systolic 96–174; BP diastolic 39–94; PULSE 80–135; RESP 11–22; TEMP 36.6–36.9; O2SAT 94–100; BMI 20.7; BMI 21.0
--- NOTE | 2018-05-06 11:22 | ED_ITS ---
HPI - General Adult General Chief complaint: Diabetic Problem Stated complaint: hard to catch breath, vomiting, body hurts, diabet Time Seen by Provider: 05/06/18 11:22 Source: patient, family and old records reviewed Mode of arrival: ambulatory Limitations: no limitations History of Present Illness HPI narrative: Patient is a 28-year-old female who presents with abdominal pain. She has history of type 1 diabetes and DKA. She was admitted April 15 through April 18 for DKA an abscess the blood. She states she finished her Augmentin 1 week ago and has been doing well until yesterday afternoon where she started feeling nauseated. She has not vomited. Her glucose is read is 455 in the ED. She denies any fever chills no productive cough chest pain shortness of breath. She does have diffuse overall abdominal discomfort. No painful or frequent urination. She states that she feels like her abscess has cleared. Related Data Home Medications Medication Instructions Recorded Confirmed insulin degludec [Tresiba 32 units SUB-Q DAILY #0 10/29/17 05/06/18 FlexTouch U-100] insulin lispro [Humalog KwikPen 5 - 15 units SUBCUT TID 05/06/18 05/06/18 Insulin] Allergies Allergy/AdvReac Type Severity Reaction Status Date / Time abdalla [ABDALLA] Allergy Intermediate Hives, Verified 05/06/18 11:12 pruritus iodine [IODINE] Allergy Intermediate rash, itchy Verified 05/06/18 11:12 morphine Allergy Intermediate Difficulty Verified 05/06/18 11:12 Breathing shellfish derived Allergy Intermediate rash Verified 05/06/18 11:12 [SHELLFISH DERIVED] adhesive [ADHESIVE] Allergy Unknown tape Verified 05/06/18 11:12 latex [LATEX] Allergy Unknown Hives Verified 05/06/18 11:12 Review of Systems Review of Systems ROS Unobtainable: All systems reviewed & are unremarkable except as noted in HPI and below Constitutional Denies chills, Denies fever(s), Denies lethargy and Denies weakness Cardiovascular Denies chest pain, Denies irregular heart rhythm, Denies lightheadedness, Denies palpitations, Denies dyspnea, Denies dyspnea on exertion and Denies orthopnea Respiratory Denies cough, Denies dyspnea, Denies dyspnea on exertion and Denies wheezing Gastrointestinal Gastrointestinal: Reports abdominal pain, Denies change in bowel habits, Denies diarrhea, Denies nausea and Denies vomiting Genitourinary Reports as per HPI Musculoskeletal Denies back pain, Denies muscle weakness, Denies numbness and Denies tingling Integumentary/Breasts Denies pruritus, Denies erythema, Denies rash and Denies wounds Neurologic Denies numbness, Denies tingling and Denies weakness Endocrine Denies palpitations Allergic/Immunologic Denies wheezing [facility] Social History household members: significant other and family Smoking Status: Never smoker alcohol intake: never Exam Initial Vital Signs Initial Vital Signs: Vital Signs Pulse Rate 135 H 05/06/18 11:12 Respiratory Rate 22 05/06/18 11:12 Blood Pressure 146/94 H 05/06/18 11:12 Pulse Oximetry 100 05/06/18 11:12 GENERAL: Well-appearing, well-nourished and in no acute distress. HEENT: Head atraumatic,EOMI, pupils reactive, dry mucous membranes CARDIOVASCULAR: Regular rate and rhythm without murmurs, rubs or gallops. RESPIRATORY: Breath sounds equal bilaterally, no wheezes rales or rhonchi. ABDOMEN: Soft, diffusely tender no localization : No CVA tenderness [employer] REPAIR: No valvular abscess. Dry flaky skin no labia abscess present, no foul smell EXTREMITIES: Normal range of motion, no clubbing or edema. Neurovascularly intact NEUROLOGICAL: Alert and oriented x4.Normal gait and speech. Cranial nerves II through XII grossly intact. SKIN: Warm, dry, no laceration, no petechiae, no rashes or lesions. Course Orders Ordered: ED Orders 05/06/18 11:25 Complete Blood Count AUTO DIFF Stat Comprehensive Metabolic Panel Stat Ketones (Beta-Hydroxybutyrate) Stat 05/06/18 11:30 Lactate (Lactic Acid) Stat 05/06/18 12:40 Venous Blood Gas Stat 05/06/18 13:03 Urinalysis and Microscopic Stat Urine Culture Stat 05/06/18 15:20 Electrolytes Stat 05/06/18 15:35 MRSA PCR Stat 05/06/18 21:00 BMP [Basic Metabolic Panel] Q4H 05/07/18 01:00 BMP [Basic Metabolic Panel] Q4H 05/07/18 05:00 BMP [Basic Metabolic Panel] Q4H 05/07/18 09:00 BMP [Basic Metabolic Panel] Q4H 05/07/18 13:00 BMP [Basic Metabolic Panel] Q4H 05/07/18 17:00 BMP [Basic Metabolic Panel] Q4H 05/07/18 21:00 BMP [Basic Metabolic Panel] Q4H Acetaminophen (Tylenol) 650 mg PO Q6HR PRN PRN Reason: As Needed for Fever/Mild Pain Fluconazole (Diflucan) 150 mg PO Q72H BLAISE Stop: 05/12/18 18:01 Last Admin: 05/06/18 17:44 Dose: 150 mg Heparin Sodium (Porcine) (Heparin) 5,000 unit SUBCUT BID BLAISE Insulin Human Regular 100 unit (/ Sodium Chloride) 100 mls @ 6 mls/hr IV TITRATE BLAISE; Protocol Last Titration: 05/06/18 15:49 Dose: 7.58 units/hr, 7.58 mls/hr Titration: 05/06/18 15:32 Dose: 6 units/hr, 6 mls/hr Admin: 05/06/18 12:55 Dose: 6 units/hr, 6 mls/hr Sodium Chloride (Normal Saline 0.9%) 1,000 mls @ 250 mls/hr IV BOLUS ONE Stop: 05/06/18 19:03 Last Infusion: 05/06/18 16:33 Dose: 0 mls/hr Infusion: 05/06/18 15:31 Dose: 250 mls/hr Admin: 05/06/18 15:07 Dose: 250 mls/hr Dextrose/Sodium Chloride (Dextrose 5%-0.45% Ns) 1,000 mls @ 76 mls/hr IV CONT [facility] Last Admin: 05/06/18 16:49 Dose: 76 mls/hr Ceftriaxone Sodium/Dextrose (Rocephin) 2 gm in 50 mls @ 100 mls/hr IV Q12H BLAISE Last Infusion: 05/06/18 18:25 Dose: 0 mls/hr Admin: 05/06/18 17:44 Dose: 100 mls/hr Patient's Own Med (Stored In Pharmacy) 0 each INJ PRN PRN PRN Reason: . Discontinued Medications Hydromorphone HCl (Dilaudid) 0.5 mg IV NOW ONE Stop: 05/06/18 12:19 Last Admin: 05/06/18 12:22 Dose: 0.5 mg Sodium Chloride (Normal Saline 0.9%) 1,000 mls @ 1,000 mls/hr IV BOLUS ONE Stop: 05/06/18 12:29 Last Infusion: 05/06/18 12:37 Dose: 0 mls/hr Admin: 05/06/18 11:31 Dose: 1,000 mls/hr Sodium Chloride (Normal Saline 0.9%) 1,000 mls @ 1,000 mls/hr IV BOLUS ONE Stop: 05/06/18 13:17 Last Infusion: 05/06/18 14:06 Dose: 0 mls/hr Admin: 05/06/18 12:38 Dose: 1,000 mls/hr Ceftriaxone Sodium/Dextrose (Rocephin) 1 gm in 50 mls @ 100 mls/hr IV NOW ONE Stop: 05/06/18 13:58 Last Infusion: 05/06/18 14:35 Dose: 0 mls/hr Admin: 05/06/18 13:37 Dose: 100 mls/hr Ketorolac Tromethamine (Toradol) 30 mg IV NOW ONE Stop: 05/06/18 11:59 Last Admin: 05/06/18 12:08 Dose: 30 mg Ondansetron HCl (Zofran) 4 mg IV NOW ONE Stop: 05/06/18 11:31 Last Admin: 05/06/18 11:31 Dose: 4 mg Vital Signs - 8 hr 05/06/18 11:12 05/06/18 11:35 05/06/18 12:00 Temperature Pulse Rate 135 H 105 H 104 H Respiratory Rate 22 18 20 Blood Pressure 146/94 H Blood Pressure [Left Arm] 124/87 125/80 Pulse Oximetry 100 100 100 05/06/18 12:30 05/06/18 13:00 05/06/18 13:31 Temperature Pulse Rate 121 H 80 115 H Respiratory Rate 15 15 Blood Pressure Blood Pressure [Left Arm] 124/74 174/63 H 130/76 Pulse Oximetry 100 96 100 05/06/18 14:00 05/06/18 15:10 05/06/18 16:41 Temperature 97.8 F Pulse Rate 114 H 115 H 116 H Respiratory Rate 19 17 16 Blood Pressure 122/71 Blood Pressure [Left Arm] 122/77 108/65 Pulse Oximetry 100 100 99 05/06/18 18:26 Temperature Pulse Rate 109 H Respiratory Rate 12 Blood Pressure 106/50 L Blood Pressure [Left Arm] Pulse Oximetry Medical Decision Making Lab Data Lab results reviewed: Yes I reviewed the patient's lab results. Result diagrams: 05/06/18 11:25 05/06/18 15:20 Lab Results 05/06/18 05/06/18 05/06/18 Range/Units 11:25 11:25 11:30 WBC 17.1 H (4.5-11.0) X10^3/uL RBC 5.08 (4.0-5.2) X10^6/uL Hgb 15.4 (12.0-16.0) g/dL Hct 48.1 H (36-46) % MCV 94.6 (80-100) fL MCH 30.2 (26-34) PG MCHC 31.9 (30-36) % RDW 13.5 (11.6-14.8) % Plt Count 481 H (150-400) X10^3/uL Neut % (Auto) 77.9 H (50-75) % Lymph % (Auto) 16.4 L (25-40) % [place] % (Auto) 4.6 (3-14) % Eos % (Auto) 0.0 L (2-4) % Baso % (Auto) 1.1 (0-2) % Neut # (Auto) 24516 H (3317-1288) /uL Lymph # (Auto) 2800 (7100-9278) /uL [place] # (Auto) 800 (0-900) /uL Eos # (Auto) 0 (0-450) /uL Baso # (Auto) 200 H (0-100) /uL VBG pH (7.33-7.43) VBG pCO2 (45-50) mmHg VBG pO2 (35-45) mmHg VBG HCO3 (23-28) mmol/L VBG Total CO2 (24-29) mmol/L VBG O2 Saturation (70-75) % VBG Base Excess (0-4) mmol/L Sodium 138 (137-145) mmol/L Potassium 4.4 (3.4-5.1) mmol/L Chloride 103 (98-107) mmol/L Carbon Dioxide < 5 L* (22-32) mmol/L BUN 16 (7-17) mg/dL Creatinine 0.90 (0.52-1.04) mg/dL Estimated GFR > 60.0 (>60) mL/min BUN/Creatinine Ratio 17.8 (6-22) Glucose 542 H* (70-100) mg/dL Lactate 1.2 (0.7-2.1) mmol/L Calcium 9.2 (8.4-10.2) mg/dL Total Bilirubin 0.4 (0.2-1.3) mg/dL AST 16 (14-36) IU/L ALT 21 (9-52) IU/L Alkaline Phosphatase 180 H (38-126) U/L Total Protein 8.5 H (6.3-8.2) g/dL Albumin 4.9 (3.5-5.0) g/dL Globulin 3.6 (1.7-4.1) g/dL Albumin/Globulin Ratio 1.4 (1.0-2.8) Urine Color Urine Appearance Urine pH (4.5-8.0) Ur Specific [place] (1.000-1.035) Urine Protein (Negative) Urine Glucose (UA) (Negative) g/dL Urine Ketones (NEGATIVE) Urine Occult Blood (Negative) Urine Nitrate (Negative) Urine Bilirubin (NEGATIVE) Urine Urobilinogen (0.2) E.U./dL Ur Leukocyte Esterase (NEGATIVE) Urine RBC (0-5/HPF) Urine WBC (0-5/HPF) Ur Squamous Epith Cells Amorphous Sediment Urine Bacteria (None) Ur Culture Indicated? Nasal Screen MRSA (PCR) (Negative) Ketones 13.36 H (<0.27) mmol/L 05/06/18 05/06/18 05/06/18 Range/Units 12:40 13:03 15:20 WBC (4.5-11.0) X10^3/uL RBC (4.0-5.2) X10^6/uL Hgb (12.0-16.0) g/dL Hct (36-46) % MCV (80-100) fL MCH (26-34) PG MCHC (30-36) % RDW (11.6-14.8) % Plt Count (150-400) X10^3/uL Neut % (Auto) (50-75) % Lymph % (Auto) (25-40) % [place] % (Auto) (3-14) % Eos % (Auto) (2-4) % Baso % (Auto) (0-2) % Neut # (Auto) (1911-1872) /uL Lymph # (Auto) (2265-1333) /uL [place] # (Auto) (0-900) /uL Eos # (Auto) (0-450) /uL Baso # (Auto) (0-100) /uL VBG pH 6.98 L* (7.33-7.43) VBG pCO2 19.5 L (45-50) mmHg VBG pO2 65 H (35-45) mmHg VBG HCO3 5 L (23-28) mmol/L VBG Total CO2 5 L (24-29) mmol/L VBG O2 Saturation 79 H (70-75) % VBG Base Excess -27.0 L (0-4) mmol/L Sodium 143 (137-145) mmol/L Potassium 5.0 (3.4-5.1) mmol/L Chloride 113 H (98-107) mmol/L Carbon Dioxide 7 L* (22-32) mmol/L BUN (7-17) mg/dL Creatinine (0.52-1.04) mg/dL Estimated GFR (>60) mL/min BUN/Creatinine Ratio (6-22) Glucose (70-100) mg/dL Lactate (0.7-2.1) mmol/L Calcium (8.4-10.2) mg/dL Total Bilirubin (0.2-1.3) mg/dL AST (14-36) IU/L ALT (9-52) IU/L Alkaline Phosphatase (38-126) U/L Total Protein (6.3-8.2) g/dL Albumin (3.5-5.0) g/dL Globulin (1.7-4.1) g/dL Albumin/Globulin Ratio (1.0-2.8) Urine Color Yellow Urine Appearance Clear Urine pH 5.0 (4.5-8.0) Ur Specific [place] 1.020 (1.000-1.035) Urine Protein Negative (Negative) Urine Glucose (UA) 2+ H (Negative) g/dL Urine Ketones 3+ H (NEGATIVE) Urine Occult Blood Trace-lysed (Negative) Urine Nitrate Negative (Negative) Urine Bilirubin Negative (NEGATIVE) Urine Urobilinogen 0.2 (0.2) E.U./dL Ur Leukocyte Esterase 1+ H (NEGATIVE) Urine RBC 1-5/hpf (0-5/HPF) Urine WBC 5-10/hpf H (0-5/HPF) Ur Squamous Epith Cells 0-1 /hpf Amorphous Sediment 1+ Urine Bacteria Moderate (10-30) H (None) Ur Culture Indicated? Specimen cultured Nasal Screen MRSA (PCR) (Negative) Ketones (<0.27) mmol/L 05/06/18 Range/Units 15:35 WBC (4.5-11.0) X10^3/uL RBC (4.0-5.2) X10^6/uL Hgb (12.0-16.0) g/dL Hct (36-46) % MCV (80-100) fL MCH (26-34) PG MCHC (30-36) % RDW (11.6-14.8) % Plt Count (150-400) X10^3/uL Neut % (Auto) (50-75) % Lymph % (Auto) (25-40) % [place] % (Auto) (3-14) % Eos % (Auto) (2-4) % Baso % (Auto) (0-2) % Neut # (Auto) (0767-6703) /uL Lymph # (Auto) (3773-8281) /uL [place] # (Auto) (0-900) /uL Eos # (Auto) (0-450) /uL Baso # (Auto) (0-100) /uL VBG pH (7.33-7.43) VBG pCO2 (45-50) mmHg VBG pO2 (35-45) mmHg VBG HCO3 (23-28) mmol/L VBG Total CO2 (24-29) mmol/L VBG O2 Saturation (70-75) % VBG Base Excess (0-4) mmol/L Sodium (137-145) mmol/L Potassium (3.4-5.1) mmol/L Chloride (98-107) mmol/L Carbon Dioxide (22-32) mmol/L BUN (7-17) mg/dL Creatinine (0.52-1.04) mg/dL Estimated GFR (>60) mL/min BUN/Creatinine Ratio (6-22) Glucose (70-100) mg/dL Lactate (0.7-2.1) mmol/L Calcium (8.4-10.2) mg/dL Total Bilirubin (0.2-1.3) mg/dL AST (14-36) IU/L ALT (9-52) IU/L Alkaline Phosphatase (38-126) U/L Total Protein (6.3-8.2) g/dL Albumin (3.5-5.0) g/dL Globulin (1.7-4.1) g/dL Albumin/Globulin Ratio (1.0-2.8) Urine Color Urine Appearance Urine pH (4.5-8.0) Ur Specific [place] (1.000-1.035) Urine Protein (Negative) Urine Glucose (UA) (Negative) g/dL Urine Ketones (NEGATIVE) Urine Occult Blood (Negative) Urine Nitrate (Negative) Urine Bilirubin (NEGATIVE) Urine Urobilinogen (0.2) E.U./dL Ur Leukocyte Esterase (NEGATIVE) Urine RBC (0-5/HPF) Urine WBC (0-5/HPF) Ur Squamous Epith Cells Amorphous Sediment Urine Bacteria (None) Ur Culture Indicated? Nasal Screen MRSA (PCR) Negative for mrsa (Negative) Ketones (<0.27) mmol/L Point of Care Testing Test Results Negative Glucose POC 224 Point of care testing: Point of Care Testing Test Results Negative Glucose POC 224 MDM Narrative Medical decision making narrative: Anion gap 30 DKA Possible UTI. No respiratory symptoms. Abdomen is reexamined after pain medication and remained soft and nontender no right upper quadrant pain no right lower quadrant pain. Patient is the for 4 hr waiting to go to ICU. I have updated Dr. morris, who will be accepting the patient. Repeat electrolytes have been ordered. She continues to get normal saline and is on an insulin drip. At this time possible UTI is she is empirically given Rocephin. She does not appear septic at this time. No other source of infection Critical Care Time Critical Care Time: Yes Total Critical Care Time: 30 Attestation: The high probability of a clinically significant, sudden or life threatening deterioration of the [cardiovascular] system(s) required my full and direct attention, intervention and personal management. The aggregate critical care time was [30] minutes. This time is in addition to time spent performing reported procedures but includes the following: [x] Data Review and interpretation [x] Patient assessment and monitoring of vital signs [x] Documentation [x] Medication orders and management Discharge Plan Departure Patient Disposition: Admitted As Inpatient Clinical Impression: DKA (diabetic ketoacidoses) Discharge Date/Time: 05/06/18 15:41 Interventions: ED Discharge Assessment Last Done: 05/06/18 15:21 Admit Date/Time: 05/06/18 15:39 Admit Provider: Susy Morris
[2018-05-06] MEDS: ONDANSETRON 4 MG/2 ML INJ IV (11:31)
[2018-05-06] MEDS: SODIUM CHLORIDE 0.9% 1,000 ML 1000 ML IV ×2 (11:31→12:38)
[2018-05-06 11:50] LABS: Add Manual Diff / Slide Review NO; Basophils Absolute Auto 200 /uL (0-100); Basophils Percent Auto 1.1 % (0-2); Eosinophils Absolute Auto 0 /uL (0-450); Hematocrit 48.1 % (36-46); Hemoglobin 15.4 g/dL (12.0-16.0); Lymphocytes Absolute Auto 2800 /uL (1100-4500); Lymphocytes Percent Auto 16.4 % (25-40); Mean Corpuscular HGB Conc 31.9 % (30-36); Mean Corpuscular Hemoglobin 30.2 PG (26-34); Mean Corpuscular Volume 94.6 fL (80-100); Monocytes Absolute Auto 800 /uL (0-900); Monocytes Percent Auto 4.6 % (3-14); Neutrophils Absolute Auto 13300 /uL (1500-7000); Neutrophils Percent Auto 77.9 % (50-75); Platelet Count 481 X10^3/uL (150-400); Red Blood Cell Count 5.08 X10^6/uL (4.0-5.2); Red Cell Distribution Width 13.5 % (11.6-14.8); White Blood Cell Count 17.1 X10^3/uL (4.5-11.0)
[2018-05-06 11:56] LABS: Alanine Aminotransferase 21 IU/L (9-52); Albumin 4.9 g/dL (3.5-5.0); Albumin Globulin Ratio 1.4 (1.0-2.8); Alkaline Phosphatase 180 U/L (38-126); Aspartate Aminotransferase 16 IU/L (14-36); BUN Creatinine Ratio 17.8 (6-22); Bilirubin Total 0.4 mg/dL (0.2-1.3); Blood Urea Nitrogen 16 mg/dL (7-17); Calcium 9.2 mg/dL (8.4-10.2); Chloride 103 mmol/L (98-107); Estimated Glomerular Filt Rate > 60.0 mL/min (>60); Globulin 3.6 g/dL (1.7-4.1); Potassium 4.4 mmol/L (3.4-5.1); Sodium 138 mmol/L (137-145); Total Protein 8.5 g/dL (6.3-8.2)
[2018-05-06] MEDS: KETOROLAC 60 MG/2 ML VIAL 30 MG IV (12:08)
[2018-05-06 12:12] LABS: Carbon Dioxide < 5 mmol/L (22-32)
[2018-05-06 12:13] LABS: Glucose 542 mg/dL (70-100)
[2018-05-06 12:14] LABS: Lactate (Lactic Acid) 1.2 mmol/L (0.7-2.1)
--- NOTE | 2018-05-06 12:15 | PC.NURSE ---
glucose 547 Co2 <5 ketones , rerunning.
[2018-05-06] MEDS: HYDROMORPHONE 1 MG INJ 0.5 MG IV (12:22)
[2018-05-06 12:28] LABS: HEMOLYSIS 17 (0-50); Ketones (Beta-Hydroxybutyrate) 13.36 mmol/L (<0.27)
--- NOTE | 2018-05-06 12:48 | PM.HP.1 ---
History of Present Illness Date Patient Seen: 05/06/18 Chief complaint: hard to catch breath, vomiting, body hurts, diabet Narrative: Sarabjit Jimenes is a 28-year-old female with a past medical history significant for nephrolithiasis and diabetes mellitus type 1 who presented with shortness of breath, nausea, vomiting and abdominal pain and was admitted for DKA. The patient reports that she was in her usual state of health until yesterday evening. She reports that she woke up after a nap and felt like ?crap?. She states that her chest hurt and fell as though she could not catch her breath. She has had mild fever with a temperature of a 100? F. Today she endorses slight nausea in the ED. She has had slight dysuria and urinary urgency the last several days. She denies current headache, chest pain, shortness of breath, sore throat, nausea, vomiting, fever, chills, diarrhea or constipation. Patient History Medical History Irregular menstrual cycle (Acute) Status post laser lithotripsy of ureteral calculus (Acute) Migraine headache (Chronic) Type 1 diabetes mellitus (Chronic) DKA (diabetic ketoacidoses) (Resolved) History of pyelonephritis (Resolved) Nephrolithiasis (Resolved) Surgical History History of ureter stent (Resolved) Family & Social History Family history unavailable: Yes Social History: household members significant other She is engaged and has no children of her own. She rarely consumes alcohol. She does not use tobacco or drugs. Tobacco & Substance use: Smoking Status Never smoker alcohol intake never alcohol intake frequency holiday/special occasion Substance Use Type does not use Meds Home Medications Medication Instructions Recorded Confirmed Type insulin degludec [Tresiba 32 units SUB-Q DAILY #0 10/29/17 05/06/18 History FlexTouch U-100] insulin lispro 5 - 15 units SUBCUT TID 05/06/18 05/06/18 History fluconazole [Diflucan] 150 mg PO Q72H #2 tab 05/08/18 Rx Allergies Allergy/AdvReac Type Severity Reaction Status Date / Time abdalla [ABDALLA] Allergy Intermediate Hives, Verified 05/06/18 11:12 pruritus iodine [IODINE] Allergy Intermediate rash, itchy Verified 05/06/18 11:12 morphine Allergy Intermediate Difficulty Verified 05/06/18 11:12 Breathing shellfish derived Allergy Intermediate rash Verified 05/06/18 11:12 [SHELLFISH DERIVED] adhesive [ADHESIVE] Allergy Unknown tape Verified 05/06/18 11:12 latex [LATEX] Allergy Unknown Hives Verified 05/06/18 11:12 Review of Systems Review of Systems A 10 system comprehensive review of systems was conducted with the patient and found to be negative except as above in the History of Present Illness. Exam Vital Signs (past 8 hours): - 05/06/18 11:12 05/06/18 11:35 05/06/18 12:00 Pulse Rate 135 H 105 H 104 H Respiratory Rate 22 18 20 Blood Pressure 146/94 H Blood Pressure [Left Arm] 124/87 125/80 Pulse Oximetry 100 100 100 Oxygen Delivery Method Room Air Narrative Exam Narrative: General: Young female lying in bed and in no acute distress, appears ill, well-developed, well-nourished, appropriately interactive. HEENT: Normocephalic, atraumatic. External ears without defect. Pupils equal, round, and reactive to light. Anicteric sclerae, moist conjunctivae, and no lid lag. Fruity smell on breath. Neck: Supple with full range of motion. No lymphadenopathy or thyromegaly. Cardiovascular: Regular rhythm, tachycardic, without murmurs, rubs, or gallops appreciated Pulmonary: Clear to auscultation bilaterally without crackles, wheezes, or rhonchi. Normal respiratory effort with no use of accessory muscles. Abdomen: Soft, bowel sounds present, mild epigastric tenderness, nondistended. No hepatosplenomegaly or masses appreciated. No guarding. Extremities: No clubbing, cyanosis, or edema. Skin: Normal temperature, turgor, and texture; slight erythema of vulva bilaterally with firmness of left vulva posteriorly towards vagina. Candidiasis present. Neurological: Cranial nerves grossly intact. Psychiatric: Normal mood and affect. Alert and oriented to person, place, and time. Objective Labs Result Diagrams: 05/08/18 08:20 05/08/18 08:20 Labs: Laboratory Results - last 24 hr 05/06/18 05/06/18 05/06/18 11:25 11:25 11:30 WBC 17.1 H RBC 5.08 Hgb 15.4 Hct 48.1 H MCV 94.6 MCH 30.2 MCHC 31.9 RDW 13.5 Plt Count 481 H Neut % (Auto) 77.9 H Lymph % (Auto) 16.4 L [place] % (Auto) 4.6 Eos % (Auto) 0.0 L Baso % (Auto) 1.1 Neut # (Auto) 89646 H Lymph # (Auto) 2800 [place] # (Auto) 800 Eos # (Auto) 0 Baso # (Auto) 200 H Sodium 138 Potassium 4.4 Chloride 103 Carbon Dioxide < 5 L* BUN 16 Creatinine 0.90 Estimated GFR > 60.0 BUN/Creatinine Ratio 17.8 Glucose 542 H* Lactate 1.2 Calcium 9.2 Total Bilirubin 0.4 AST 16 ALT 21 Alkaline Phosphatase 180 H Total Protein 8.5 H Albumin 4.9 Globulin 3.6 Albumin/Globulin Ratio 1.4 Ketones 13.36 H Assessment & Plan Plan: Assessment/Plan Narrative: Sarabjit Jimenes is a 28-year-old female with a past medical history significant for nephrolithiasis and diabetes mellitus type 1 who presented with shortness of breath, nausea, vomiting and abdominal pain and was admitted for DKA. 1. Acute diabetic ketoacidosis, present on admission. Active. -Patient started on DKA protocol including insulin gtt, IV fluids, and electrolyte repletion. -Monitor electrolytes and anion gap until closed. Initial anion gap 30. -Urinalysis appears grossly infected with many bacteria and mild leukocytosis. Urine culture pending. -Patient was started on empiric antibiotics with ceftriaxone 2 g in the ED. Continue ceftriaxone 2 g daily pending culture and sensitivities. 2. Acute anion gap metabolic acidosis, present on admission. Active. -VBG demonstrated: PH 6.98, CO2 19.5, PO2 65, HC03 5. -Continue to treat DKA and underlying cause presumed to be UTI. 3. Acute urinary tract infection, present on admission. Active. -Urinalysis grossly infected with urine culture pending. -Started on empiric antibiotics with ceftriaxone 2 g daily. 4. Recent vulvar abscess. Resolved. -Consulted Gynecology, Dr. Pnea, who assured that her vulvar abscess is resolved. Recommends treatment for vaginal yeast infection. 5. Vaginal candidiasis, present on admission. Active. -Started Diflucan 150 mg every 3 days for 3 doses. 6. Frequent headaches, not present on admit. -Continue pain medication as needed. Patient is admitted under inpatient status with expected length of stay greater than 2 midnights due to severity of presenting symptoms, risk of adverse event, and complexity of treatment plan.
[2018-05-06] MEDS: INSULIN REGULAR, HUMAN 100 UNIT in SODIUM CHLORIDE 0.9% 100 ML 6 ML IV (12:55)
[2018-05-06 12:58] LABS: PCO2 VBG 19.5 mmHg (45-50); PO2 VBG 65 mmHg (35-45); pH VBG 6.98 (7.33-7.43)
[2018-05-06 12:59] LABS: HCO3 VBG 5 mmol/L (23-28); Oxygen Saturation VBG 79 % (70-75); Total CO2 VBG 5 mmol/L (24-29)
[2018-05-06 13:05] LABS: Appearance Urine UA CLEAR; Bilirubin Urine UA NEGATIVE (NEGATIVE); Color Urine UA YELLOW; Glucose Urine UA 2+ g/dL (Negative); Ketones Urine UA 3+ (NEGATIVE); Leukocyte Esterase Urine UA 1+ (NEGATIVE); Nitrite Urine UA NEGATIVE (Negative); Occult Blood Urine UA TRACE-LYSED (Negative); Protein Urine UA NEGATIVE (Negative); Urobilinogen Urine UA 0.2 E.U./dL (0.2)
[2018-05-06 13:13] LABS: RBC Urine 1-5/HPF (0-5/HPF); WBC Urine 5-10/HPF (0-5/HPF)
[2018-05-06 13:14] LABS: Amorphous Sediment Urine 1+; Bacteria Urine Moderate (10-30); Culture Indicated Urine Specimen Cultured; Squamous Epithelial Cell Urine 0-1 /HPF
[2018-05-06] MEDS: CEFTRIAXONE 1 GM/50 ML FROZ.PIGGY IV (13:37)
[2018-05-06] MEDS: SODIUM CHLORIDE 0.9% 1,000 ML 250 ML IV (15:07)
[2018-05-06 15:39] LABS: Chloride 113 mmol/L (98-107); HEMOLYSIS < 15 (0-50); Sodium 143 mmol/L (137-145)
[2018-05-06 15:42] LABS: Carbon Dioxide 7 mmol/L (22-32)
--- NOTE | 2018-05-06 16:08 | PC.NURSE ---
Addendum entered by Selina Rhodes R.N. 05/06/18 16:40: Dr. Vargas gave orders to follow DKA protocol flowsheet for patient's insulin, fluids, and labs. Admission note to be 1530, not 1630 Original Note: 1630 - Patient admitted to room 105. Brought over on stretcher by nursing staff. Able to walk self from stretcher to bed without assistance. Alert and oriented with pleasant affect. Denies pain or nausea at this time. Insulin gtt running per order at 6 units/hr. Oriented to room and call light, call light within reach.
[2018-05-06] MEDS: DEXTROSE 5%-0.45% NS 1,000 ML 76 ML IV (16:49)
--- NOTE | 2018-05-06 16:59 | P.CONS_ITS ---
History of Present Illness Date Patient Seen: 05/06/18 Time Patient Seen: 16:52 Chief complaint: hard to catch breath, vomiting, body hurts, diabet Reason for consult: vulvar lesion Requesting provider: Susy Vargas Narrative: The patient is a 28 yo type 1 diabetic who presented in diabetic ketoacidoss. Previously this patient had had a vulvar abscess as and underlying cause, It was lanced and drained and on last follow up b Dr Herron on the 30 of April it had resloved completely. Requested exam today to make sure no vulvar abscess. [facility] Surgical History History of ureter stent (Resolved) Family History Father In good health Mother Cardiac disease Social History household members: significant other and family Smoking Status: Never smoker alcohol intake: never Meds Home Medications Medication Instructions Recorded Confirmed Type insulin degludec [Tresiba 32 units SUB-Q DAILY #0 10/29/17 05/06/18 History FlexTouch U-100] insulin lispro [Humalog KwikPen 5 - 15 units SUBCUT TID 05/06/18 05/06/18 History Insulin] Allergies Allergy/AdvReac Type Severity Reaction Status Date / Time abdalla [ABDALLA] Allergy Intermediate Hives, Verified 05/06/18 11:12 pruritus iodine [IODINE] Allergy Intermediate rash, itchy Verified 05/06/18 11:12 morphine Allergy Intermediate Difficulty Verified 05/06/18 11:12 Breathing shellfish derived Allergy Intermediate rash Verified 05/06/18 11:12 [SHELLFISH DERIVED] adhesive [ADHESIVE] Allergy Unknown tape Verified 05/06/18 11:12 latex [LATEX] Allergy Unknown Hives Verified 05/06/18 11:12 Exam Vital Signs (past 8 hours): - 05/06/18 11:12 05/06/18 11:35 05/06/18 12:00 Pulse Rate 135 H 105 H 104 H Respiratory Rate 22 18 20 Blood Pressure 146/94 H Blood Pressure [Left Arm] 124/87 125/80 Pulse Oximetry 100 100 100 05/06/18 12:30 05/06/18 13:00 05/06/18 13:31 Pulse Rate 121 H 80 115 H Respiratory Rate 15 15 Blood Pressure Blood Pressure [Left Arm] 124/74 174/63 H 130/76 Pulse Oximetry 100 96 100 05/06/18 14:00 05/06/18 15:10 Pulse Rate 114 H 115 H Respiratory Rate 19 17 Blood Pressure Blood Pressure [Left Arm] 122/77 108/65 Pulse Oximetry 100 100 Oxygen Delivery Method Room Air Narrative Exam Narrative: exam is confined to vulva. the labia major have the violaceous hue characteristic of layla infection careful examination of labia major, minora, vistibule and perineum show no evidence of abscess Objective Labs Result Diagrams: 05/06/18 11:25 05/06/18 15:20 Labs: Laboratory Results - last 24 hr 05/06/18 05/06/18 05/06/18 11:25 11:25 11:30 WBC 17.1 H RBC 5.08 Hgb 15.4 Hct 48.1 H MCV 94.6 MCH 30.2 MCHC 31.9 RDW 13.5 Plt Count 481 H Neut % (Auto) 77.9 H Lymph % (Auto) 16.4 L [place] % (Auto) 4.6 Eos % (Auto) 0.0 L Baso % (Auto) 1.1 Neut # (Auto) 89461 H Lymph # (Auto) 2800 [place] # (Auto) 800 Eos # (Auto) 0 Baso # (Auto) 200 H VBG pH VBG pCO2 VBG pO2 VBG HCO3 VBG Total CO2 VBG O2 Saturation VBG Base Excess Sodium 138 Potassium 4.4 Chloride 103 Carbon Dioxide < 5 L* BUN 16 Creatinine 0.90 Estimated GFR > 60.0 BUN/Creatinine Ratio 17.8 Glucose 542 H* Lactate 1.2 Calcium 9.2 Total Bilirubin 0.4 AST 16 ALT 21 Alkaline Phosphatase 180 H Total Protein 8.5 H Albumin 4.9 Globulin 3.6 Albumin/Globulin Ratio 1.4 Urine Color Urine Appearance Urine pH Ur Specific [place] Urine Protein Urine Glucose (UA) Urine Ketones Urine Occult Blood Urine Nitrate Urine Bilirubin Urine Urobilinogen Ur Leukocyte Esterase Urine RBC Urine WBC Ur Squamous Epith Cells Amorphous Sediment Urine Bacteria Ur Culture Indicated? Ketones 13.36 H 05/06/18 05/06/18 05/06/18 12:40 13:03 15:20 WBC RBC Hgb Hct MCV MCH MCHC RDW Plt Count Neut % (Auto) Lymph % (Auto) [place] % (Auto) Eos % (Auto) Baso % (Auto) Neut # (Auto) Lymph # (Auto) [place] # (Auto) Eos # (Auto) Baso # (Auto) VBG pH 6.98 L* VBG pCO2 19.5 L VBG pO2 65 H VBG HCO3 5 L VBG Total CO2 5 L VBG O2 Saturation 79 H VBG Base Excess -27.0 L Sodium 143 Potassium 5.0 Chloride 113 H Carbon Dioxide 7 L* BUN Creatinine Estimated GFR BUN/Creatinine Ratio Glucose Lactate Calcium Total Bilirubin AST ALT Alkaline Phosphatase Total Protein Albumin Globulin Albumin/Globulin Ratio Urine Color Yellow Urine Appearance Clear Urine pH 5.0 Ur Specific [place] 1.020 Urine Protein Negative Urine Glucose (UA) 2+ H Urine Ketones 3+ H Urine Occult Blood Trace-lysed Urine Nitrate Negative Urine Bilirubin Negative Urine Urobilinogen 0.2 Ur Leukocyte Esterase 1+ H Urine RBC 1-5/hpf Urine WBC 5-10/hpf H Ur Squamous Epith Cells 0-1 /hpf Amorphous Sediment 1+ Urine Bacteria Moderate (10-30) H Ur Culture Indicated? Specimen cultured Ketones Assessment & Plan (1) Vulvar candidiasis: Current visit: Yes Status: Acute Plan: Assessment/Plan Narrative: no evidence of vulvar infection or abscess vulvar candidiasis present Recommend treatment with Diflucan. recommend 150 every 3 days X 3
[2018-05-06] MEDS: CEFTRIAXONE 2 GM/50 ML FROZ.PIGGY IV (17:44)
[2018-05-06] MEDS: FLUCONAZOLE 150 MG TABLET PO (17:44)
[2018-05-06 19:08] LABS: Phosphorous 2.9 mg/dL (2.5-4.5)
[2018-05-06 20:25] LABS: BUN Creatinine Ratio 17.1 (6-22); Blood Urea Nitrogen 12 mg/dL (7-17); Carbon Dioxide 12 mmol/L (22-32); Chloride 114 mmol/L (98-107); Estimated Glomerular Filt Rate > 60.0 mL/min (>60); Glucose 213 mg/dL (70-100); HEMOLYSIS < 15 (0-50); Potassium 3.5 mmol/L (3.4-5.1); Sodium 139 mmol/L (137-145)
[2018-05-06] MEDS: HEPARIN 5,000 UNIT/ML VIAL 5000 UNIT SUBCUT (20:57)
[2018-05-06] MEDS: POTASSIUM CHLORIDE 40 MEQ in SODIUM CHLORIDE 0.9% 500 ML 130 ML IV (20:58)
[2018-05-06] MEDS: DEXTROSE 10 % IN WATER 1,000 ML 50.5 ML IV (23:00)
[2018-05-07] VITALS (12 sets, daily range): BP systolic 93–121; BP diastolic 46–72; PULSE 85–105; RESP 11–21; TEMP 36.6–37.2; O2SAT 97–99
[2018-05-07 00:49] LABS: BUN Creatinine Ratio 12.9 (6-22); Blood Urea Nitrogen 9 mg/dL (7-17); Carbon Dioxide 13 mmol/L (22-32); Chloride 117 mmol/L (98-107); Estimated Glomerular Filt Rate > 60.0 mL/min (>60); Glucose 144 mg/dL (70-100); HEMOLYSIS < 15 (0-50); Potassium 4.3 mmol/L (3.4-5.1); Sodium 141 mmol/L (137-145)
[2018-05-07] MEDS: [UNRECOGNIZED DRUG - OTHER] INJ (01:22)
[2018-05-07] MEDS: HYDROMORPHONE 0.5 MG INJ IV (01:30)
[2018-05-07 05:08] LABS: Add Manual Diff / Slide Review NO; Basophils Absolute Auto 100 /uL (0-100); Basophils Percent Auto 0.5 % (0-2); Eosinophils Absolute Auto 100 /uL (0-450); Eosinophils Percent Auto 0.5 % (2-4); Hematocrit 37.8 % (36-46); Hemoglobin 12.5 g/dL (12.0-16.0); Lymphocytes Absolute Auto 1800 /uL (1100-4500); Lymphocytes Percent Auto 16.2 % (25-40); Mean Corpuscular HGB Conc 32.9 % (30-36); Mean Corpuscular Hemoglobin 30.2 PG (26-34); Mean Corpuscular Volume 91.8 fL (80-100); Monocytes Absolute Auto 1000 /uL (0-900); Monocytes Percent Auto 9.6 % (3-14); Neutrophils Absolute Auto 8000 /uL (1500-7000); Neutrophils Percent Auto 73.2 % (50-75); Platelet Count 306 X10^3/uL (150-400); Red Blood Cell Count 4.12 X10^6/uL (4.0-5.2); Red Cell Distribution Width 13.1 % (11.6-14.8); White Blood Cell Count 10.9 X10^3/uL (4.5-11.0)
[2018-05-07 05:10] LABS: BUN Creatinine Ratio 11.3 (6-22); Blood Urea Nitrogen 9 mg/dL (7-17); Carbon Dioxide 11 mmol/L (22-32); Chloride 115 mmol/L (98-107); Estimated Glomerular Filt Rate > 60.0 mL/min (>60); Glucose 183 mg/dL (70-100); HEMOLYSIS < 15 (0-50); Lipase 87 U/L (23-300); Potassium 4.1 mmol/L (3.4-5.1); Sodium 138 mmol/L (137-145)
[2018-05-07] MEDS: CEFTRIAXONE 2 GM/50 ML FROZ.PIGGY IV ×2 (05:29→18:02)
--- NOTE | 2018-05-07 06:18 | PC.NURSE ---
Received patient with insulin gtt infusing at 1.01units/hr, D10W at 50ml/hr, and K+ rider near completion. Per 0030 lab draw, anion gap closed = 11, CBG 142, patient states she feels better, denies nausea, and is hungry. She is agreeable to restart her own Tresiba as ordered, 32 units given at 0130, insulin gtt and D10W stopped at 0230, tolerated jello and 1/2 turkey sandwich. 0.5mg IV Dilaudid given at 0100 1x dose for c/o epigastric pain-effective. SR, VSS.
[2018-05-07] MEDS: HEPARIN 5,000 UNIT/ML VIAL 5000 UNIT SUBCUT ×2 (08:31→21:44)
[2018-05-07] MEDS: INSULIN ASPART 100 UNIT/ML INSULN PEN SUBCUT ×4 (08:33→21:45)
--- NOTE | 2018-05-07 08:53 | PM.PN.1 ---
Subjective Date Patient Seen: 05/07/18 Interval history: Sarabjit Jimenes is a 28-year-old female with a past medical history significant for nephrolithiasis and diabetes mellitus type 1 who presented with shortness of breath, nausea, vomiting and abdominal pain and was admitted for DKA. Overnight: The patient's anion gap closed around 0300, she was started on her long-acting insulin and the insulin gtt was discontinued an hour later. She received potassium chloride 40 mEq IV x1 per DKA protocol. Today the patient is resting in bed comfortably and in no acute distress. She reports fatigue and sharp chest pain which is reproducible with palpation and musculoskeletal in etiology. She denies headache, sore throat, cough, shortness of breath, abdominal pain, nausea, vomiting, fever, chills, diarrhea or constipation. She is voiding without difficulty. She is up ambulating without assistance. Exam Vital Signs (past 8 hours): - 05/07/18 01:00 05/07/18 02:00 05/07/18 03:00 Temperature Pulse Rate 91 H 89 87 Respiratory Rate 11 L 11 L 13 Blood Pressure 104/58 L 110/72 102/65 Pulse Oximetry 05/07/18 04:04 05/07/18 05:00 05/07/18 06:00 Temperature 98.3 F Pulse Rate 95 H 85 88 Respiratory Rate 12 12 11 L Blood Pressure 109/51 L 93/48 L 99/49 L Pulse Oximetry 97 05/07/18 07:45 Temperature 98.5 F Pulse Rate 87 Respiratory Rate 13 Blood Pressure 99/56 L Pulse Oximetry 98 Oxygen Delivery Method Room Air Narrative Exam Narrative: General: Young female lying in bed and in no acute distress, flushed but appears to be feeling better, well-developed, well-nourished, appropriately interactive. HEENT: Normocephalic, atraumatic. External ears without defect. Pupils equal, round, and reactive to light. Anicteric sclerae, moist conjunctivae, and no lid lag. Neck: Supple with full range of motion. No lymphadenopathy or thyromegaly. Cardiovascular: Regular rhythm, tachycardic but improved, without murmurs, rubs, or gallops appreciated. Reproducible chest pain with palpation. Pulmonary: Clear to auscultation bilaterally without crackles, wheezes, or rhonchi. Normal respiratory effort with no use of accessory muscles. Abdomen: Soft, bowel sounds present, mild epigastric tenderness, nondistended. No hepatosplenomegaly or masses appreciated. No guarding. Extremities: No clubbing, cyanosis, or edema. Skin: Normal temperature, turgor, and texture. Neurological: Cranial nerves grossly intact. Psychiatric: Normal mood and affect. Alert and oriented to person, place, and time. Objective Labs Result Diagrams: 05/07/18 04:26 05/07/18 04:26 Labs: Laboratory Results - last 24 hr 05/06/18 05/06/18 05/06/18 11:25 11:25 11:30 WBC 17.1 H RBC 5.08 Hgb 15.4 Hct 48.1 H MCV 94.6 MCH 30.2 MCHC 31.9 RDW 13.5 Plt Count 481 H Neut % (Auto) 77.9 H Lymph % (Auto) 16.4 L [place] % (Auto) 4.6 Eos % (Auto) 0.0 L Baso % (Auto) 1.1 Neut # (Auto) 86698 H Lymph # (Auto) 2800 [place] # (Auto) 800 Eos # (Auto) 0 Baso # (Auto) 200 H VBG pH VBG pCO2 VBG pO2 VBG HCO3 VBG Total CO2 VBG O2 Saturation VBG Base Excess Sodium 138 Potassium 4.4 Chloride 103 Carbon Dioxide < 5 L* BUN 16 Creatinine 0.90 Estimated GFR > 60.0 BUN/Creatinine Ratio 17.8 Glucose 542 H* Lactate 1.2 Calcium 9.2 Phosphorus Total Bilirubin 0.4 AST 16 ALT 21 Alkaline Phosphatase 180 H Total Protein 8.5 H Albumin 4.9 Globulin 3.6 Albumin/Globulin Ratio 1.4 Lipase Urine Color Urine Appearance Urine pH Ur Specific [place] Urine Protein Urine Glucose (UA) Urine Ketones Urine Occult Blood Urine Nitrate Urine Bilirubin Urine Urobilinogen Ur Leukocyte Esterase Urine RBC Urine WBC Ur Squamous Epith Cells Amorphous Sediment Urine Bacteria Ur Culture Indicated? Nasal Screen MRSA (PCR) Ketones 13.36 H 05/06/18 05/06/18 05/06/18 12:40 13:03 15:20 WBC RBC Hgb Hct MCV MCH MCHC RDW Plt Count Neut % (Auto) Lymph % (Auto) [place] % (Auto) Eos % (Auto) Baso % (Auto) Neut # (Auto) Lymph # (Auto) [place] # (Auto) Eos # (Auto) Baso # (Auto) VBG pH 6.98 L* VBG pCO2 19.5 L VBG pO2 65 H VBG HCO3 5 L VBG Total CO2 5 L VBG O2 Saturation 79 H VBG Base Excess -27.0 L Sodium 143 Potassium 5.0 Chloride 113 H Carbon Dioxide 7 L* BUN Creatinine Estimated GFR BUN/Creatinine Ratio Glucose Lactate Calcium Phosphorus 2.9 Total Bilirubin AST ALT Alkaline Phosphatase Total Protein Albumin Globulin Albumin/Globulin Ratio Lipase Urine Color Yellow Urine Appearance Clear Urine pH 5.0 Ur Specific [place] 1.020 Urine Protein Negative Urine Glucose (UA) 2+ H Urine Ketones 3+ H Urine Occult Blood Trace-lysed Urine Nitrate Negative Urine Bilirubin Negative Urine Urobilinogen 0.2 Ur Leukocyte Esterase 1+ H Urine RBC 1-5/hpf Urine WBC 5-10/hpf H Ur Squamous Epith Cells 0-1 /hpf Amorphous Sediment 1+ Urine Bacteria Moderate (10-30) H Ur Culture Indicated? Specimen cultured Nasal Screen MRSA (PCR) Ketones 05/06/18 05/06/18 05/07/18 15:35 20:03 00:22 WBC RBC Hgb Hct MCV MCH MCHC RDW Plt Count Neut % (Auto) Lymph % (Auto) [place] % (Auto) Eos % (Auto) Baso % (Auto) Neut # (Auto) Lymph # (Auto) [place] # (Auto) Eos # (Auto) Baso # (Auto) VBG pH VBG pCO2 VBG pO2 VBG HCO3 VBG Total CO2 VBG O2 Saturation VBG Base Excess Sodium 139 141 Potassium 3.5 D 4.3 Chloride 114 H 117 H Carbon Dioxide 12 L 13 L BUN 12 9 Creatinine 0.70 0.70 Estimated GFR > 60.0 > 60.0 BUN/Creatinine Ratio 17.1 12.9 Glucose 213 H D 144 H Lactate Calcium 8.0 L 8.0 L Phosphorus Total Bilirubin AST ALT Alkaline Phosphatase Total Protein Albumin Globulin Albumin/Globulin Ratio Lipase Urine Color Urine Appearance Urine pH Ur Specific [place] Urine Protein Urine Glucose (UA) Urine Ketones Urine Occult Blood Urine Nitrate Urine Bilirubin Urine Urobilinogen Ur Leukocyte Esterase Urine RBC Urine WBC Ur Squamous Epith Cells Amorphous Sediment Urine Bacteria Ur Culture Indicated? Nasal Screen MRSA (PCR) Negative for mrsa Ketones 05/07/18 05/07/18 04:26 04:26 WBC 10.9 RBC 4.12 Hgb 12.5 Hct 37.8 MCV 91.8 MCH 30.2 MCHC 32.9 RDW 13.1 Plt Count 306 Neut % (Auto) 73.2 Lymph % (Auto) 16.2 L [place] % (Auto) 9.6 Eos % (Auto) 0.5 L Baso % (Auto) 0.5 Neut # (Auto) 8000 H Lymph # (Auto) 1800 [place] # (Auto) 1000 H Eos # (Auto) 100 Baso # (Auto) 100 VBG pH VBG pCO2 VBG pO2 VBG HCO3 VBG Total CO2 VBG O2 Saturation VBG Base Excess Sodium 138 Potassium 4.1 Chloride 115 H Carbon Dioxide 11 L BUN 9 Creatinine 0.80 Estimated GFR > 60.0 BUN/Creatinine Ratio 11.3 Glucose 183 H Lactate Calcium 8.0 L Phosphorus Total Bilirubin AST ALT Alkaline Phosphatase Total Protein Albumin Globulin Albumin/Globulin Ratio Lipase 87 Urine Color Urine Appearance Urine pH Ur Specific [place] Urine Protein Urine Glucose (UA) Urine Ketones Urine Occult Blood Urine Nitrate Urine Bilirubin Urine Urobilinogen Ur Leukocyte Esterase Urine RBC Urine WBC Ur Squamous Epith Cells Amorphous Sediment Urine Bacteria Ur Culture Indicated? Nasal Screen MRSA (PCR) Ketones Assessment & Plan Plan: Assessment/Plan Narrative: Sarabjit Jimenes is a 28-year-old female with a past medical history significant for nephrolithiasis and diabetes mellitus type 1 who presented with shortness of breath, nausea, vomiting and abdominal pain and was admitted for DKA. 1. Acute diabetic ketoacidosis, present on admission. Active. -Patient started on DKA protocol including insulin gtt, IV fluids, and electrolyte repletion. Transitioned to long-acting insulin and correctional scale insulin. Insulin gtt and IVF stopped. -Monitored electrolytes and anion gap until closed. Initial anion gap 30. Repleted electrolytes as needed. -Urinalysis appears grossly infected with many bacteria and mild leukocytosis. Urine culture pending. -Patient was started on empiric antibiotics with ceftriaxone 2 g in the ED. Continue ceftriaxone 2 g daily pending culture and sensitivities. 2. Acute anion gap metabolic acidosis, present on admission. Resolved. -VBG demonstrated: PH 6.98, CO2 19.5, PO2 65, HC03 5. -Continue to treat DKA and underlying cause presumed to be UTI. 3. Acute urinary tract infection, present on admission. Active. -Urinalysis grossly infected with urine culture pending. -Continue on empiric antibiotics with ceftriaxone 2 g daily. 4. Recent vulvar abscess. Resolved. -Consulted Gynecology, Dr. Pena, who assured that her vulvar abscess is resolved. Recommends treatment for vaginal yeast infection. 5. Vaginal candidiasis, present on admission. Active. -Continue Diflucan 150 mg every 3 days for 3 doses. 6. Frequent headaches, not present on admit. -Continue pain medication as needed. Disposition: Patient likely to discharge home tomorrow pending urine culture and sensitivities.
--- NOTE | 2018-05-07 10:35 | CM.DANOTE ---
Patient is a 28 year old female who was admitted on 05/06/18 for DKA. Pt has [employer] for insurance and her PCP is not listed. EMR was reviewed. Per MD, pt with yeast infection, likely no UTI, and DKA who is stabilizing. Per RN, pt now off drip and floor care. No concerns or needs at this time and pt appears to be compliant with meds and good self care. Pt has hx of being admitted to [facility] for DKA type medical needs and infections but appears to be well groomed and good self care and strongly confirms she is compliant with medications and recommendations. Pt resides at home with nina Paredes ([phone]) and local parents. Currently no concerns with d/c planning. Plan: SW to follow for likely d/c home today or tomorrow with supportive family when medically stable. SW to follow for any further identified d/c planning needs. RAYMOND Roman Discharge Planning/Care Management CM Discharge Assessment Start: 05/07/18 10:33 Freq: Status: Active Protocol: Document 05/07/18 10:34 BF (Rec: 05/07/18 10:34 BF [id number]) Discharge Planning Assessment Assigned Certified Breastfeeding Educator RAYMOND Brannon Advance Directives? No History Provided By Patient Family Member Medical Record Has Patient been admitted in last 30 No days? Prior Living Arrangements House Household Members significant other family Type of transporation used prior to Drives own vehicle admit Independent with ADL's Yes Is patient alert and oriented? Yes Caregiver for Another No Comment Home with family Barriers to Discharge No Discharge Plan Home Transportation Arrangement Significant other can provide transport at d/c. Referrals Initiated None needed Review Status In Process Please Provide Date Initial DC 05/07/18 Assessment Was Performed Next Review Type Continued Stay Review
--- NOTE | 2018-05-07 14:06 | DI.RAD.S_ITS ---
PROCEDURE: XR CHEST 1V INDICATIONS: chest pain TECHNIQUE: One view of the chest was acquired. COMPARISON: [facility], CR, XR CHEST 1V, 04/15/2018, 23:50. FINDINGS: Surgical changes and devices: None. Lungs and pleura: No pleural effusions or pneumothorax. Lungs are clear. Mediastinum: Mediastinal contours appear normal. Heart size is normal. Bones and chest wall: No suspicious bony lesions. Overlying soft tissues appear unremarkable. IMPRESSION: 1. No acute cardiopulmonary disease. Dictated by: Jesus Winston M.D. on 05/07/2018 at 14:24 Approved by: Jesus Winston M.D. on 05/07/2018 at 14:24
[2018-05-07] MEDS: ONDANSETRON 4 MG/2 ML INJ IV (14:12)
[2018-05-07] MEDS: INSULIN REGULAR 100 UNIT/ML 3 ML VIAL 10 UNIT IV (14:13)
--- NOTE | 2018-05-07 14:34 | PC.NURSE ---
Day Shift Note Patient reported nausea shortly after lunch. CBG checked and was 399. Also reporting chest pain similar to what she had coming into the ER. Denies SOB, oxygen sats 97% RA and VSS. Dr. Vargas called and updated on the above and orders received for 10 units regular insulin IV, zofran, and STAT CXR. Pt placed back on tele per MD order. Pt currently resting in room with mother at bedside.
[2018-05-07] MEDS: TRESIBA INJ (17:15)
--- NOTE | 2018-05-07 21:57 | PC.NURSE ---
Pt resting quietly. Supportive S.O. at bedside. Denies nausea, denies pain. Snack provided per pt request. BG elevated 361, sliding scale coverage given as ordered. Call light in reach.
--- NOTE | 2018-05-08 | DI.RAD.S_ITS ---
PROCEDURE: XR KUB INDICATIONS: nephrolithiasis TECHNIQUE: One view of the abdomen acquired. COMPARISON: [facility], CT, KIDNEY/ URETER/BLADDER, 09/03/2014, 7:57. [facility], US, RENAL COMPLETE, 05/12/2015, 17:46. FINDINGS: Surgical changes and devices: None. Bowel: Bowel gas pattern is normal. There is a large amount of stool in colon. Soft tissues: No suspicious abdominal calcifications. Visualized solid organ contours appear normal in size. Bones: No suspicious bony lesions. IMPRESSION: 1. No definitive renal calculi identified. Small renal stones could be obscured by overlying stool content. 2. A large amount of stool in colon. Dictated by: Keven Dotson M.D. on 05/08/2018 at 9:29 Approved by: Keven Dotson M.D. on 05/08/2018 at 9:31
[2018-05-08 04:45] VITALS: BP 100/61; PULSE 88; RESP 22; TEMP 36.7; O2SAT 97
[2018-05-08] MEDS: CEFTRIAXONE 2 GM/50 ML FROZ.PIGGY IV ×2 (06:12→09:27)
[2018-05-08 07:55] VITALS: BP 100/57; PULSE 76; RESP 13; TEMP 35.9; O2SAT 99
--- NOTE | 2018-05-08 08:18 | P.DS_ITS ---
History of Present Illness Date Patient Seen: 05/06/18 Chief complaint: hard to catch breath, vomiting, body hurts, diabet Narrative: Written by myself Dr. Vargas: Sarabjit Jimenes is a 28-year-old female with a past medical history significant for nephrolithiasis and diabetes mellitus type 1 who presented with shortness of breath, nausea, vomiting and abdominal pain and was admitted for DKA. The patient reports that she was in her usual state of health until yesterday evening. She reports that she woke up after a nap and felt like ?crap?. She states that her chest hurt and fell as though she could not catch her breath. She has had mild fever with a temperature of a 100? F. Today she endorses slight nausea in the ED. She has had slight dysuria and urinary urgency the last several days. She denies current headache, chest pain, shortness of breath , sore throat, nausea, vomiting, fever, chills, diarrhea or constipation. Discharge Providers Date of admission: 05/06/18 15:39 Discharge provider: Susy Vargas DO Discharge Date: 05/08/18 Summary Discharge Diagnosis: 1. Acute diabetic ketoacidosis, present on admission. Resolved. 2. Acute anion gap metabolic acidosis, present on admission. Resolved. 3. Acute urinary tract infection ruled out. 4. Recent vulvar abscess. Resolved. 5. Vaginal candidiasis infection, present on admission. Resolving. 6. Frequent headaches, not present on admit. 7. History of nephrolithiasis. Hospital Course: Sarabjit Jimenes is a 28-year-old female with a past medical history significant for nephrolithiasis and diabetes mellitus type 1 who presented with shortness of breath, nausea, vomiting and abdominal pain and was admitted for DKA. 1. Acute diabetic ketoacidosis, present on admission. Resolved. -Patient started on DKA protocol including insulin gtt, IV fluids, and electrolyte repletion. Transitioned to long-acting insulin and correctional scale insulin. Insulin gtt and IVF stopped. -Monitored electrolytes and anion gap until closed. Initial anion gap 30. Repleted electrolytes as needed. -Urinalysis appears grossly infected with many bacteria and mild leukocytosis. Urine culture grew yeast only. -Patient was started on empiric antibiotics with ceftriaxone 2 g in the ED. Continue ceftriaxone 2 g daily x 3 days. 2. Acute anion gap metabolic acidosis, present on admission. Resolved. -VBG demonstrated: PH 6.98, CO2 19.5, PO2 65, HC03 5. -Continued to treat DKA and underlying cause vaginal yeast infection. No UTI. 3. Acute urinary tract infection ruled out. -Urinalysis grossly infected. Urine culture grew yeast only. No UTI. -Continued on empiric antibiotics with ceftriaxone 2 g daily x 3 days. 4. Recent vulvar abscess. Resolved. -Consulted Gynecology, Dr. Pena, who assured that her vulvar abscess is resolved. Recommends treatment for vaginal yeast infection. 5. Vaginal candidiasis infection, present on admission. Resolving. -Continued Diflucan 150 mg every 3 days for 3 doses. 6. Frequent headaches, not present on admit. -Continued pain medication as needed. 7. History of nephrolithiasis. -Ordered KUB to rule out nidus for infection which did not demonstrate and renal calculi. Status at Discharge Functional status at discharge: independent ambulation Overall status at discharge: patient is back to baseline Exam Vital Signs (past 8 hours): - 05/08/18 04:45 05/08/18 07:55 Temperature 98.1 F 96.7 F L Pulse Rate 88 76 Respiratory Rate 22 13 Blood Pressure 100/61 100/57 L Pulse Oximetry 97 99 Oxygen Delivery Method Room Air Narrative Exam Narrative: General: Young female lying in bed and in no acute distress, flushed but appears to be feeling better, well-developed, well-nourished, appropriately interactive. HEENT: Normocephalic, atraumatic. External ears without defect. Pupils equal, round, and reactive to light. Anicteric sclerae, moist conjunctivae, and no lid lag. Neck: Supple with full range of motion. No lymphadenopathy or thyromegaly. Cardiovascular: Regular rhythm, tachycardic but improved, without murmurs, rubs , or gallops appreciated. Reproducible chest pain with palpation. Pulmonary: Clear to auscultation bilaterally without crackles, wheezes, or rhonchi. Normal respiratory effort with no use of accessory muscles. Abdomen: Soft, bowel sounds present, no abdominal tenderness, nondistended. No hepatosplenomegaly or masses appreciated. No guarding. Extremities: No clubbing, cyanosis, or edema. Skin: Normal temperature, turgor, and texture. Neurological: Cranial nerves grossly intact. Psychiatric: Normal mood and affect. Alert and oriented to person, place, and time. Objective Labs Result Diagrams: 05/08/18 08:20 05/08/18 08:20 Discharge Plan Discharge Plan Patient Disposition: Home Discharge comment: You are being discharged home. Continue taking Diflucan 1 dose tomorrow and another dose 3 days later to complete your treatment for vaginal yeast infection. Please follow-up with your surfacing machine operator, Leonidas COLES, as soon as next available. Discharge Med Rec/Prescriptions Prescriptions: New fluconazole [Diflucan] 150 mg Tablet 150 mg PO Q72H Qty: 2 RF: 0 Continue insulin degludec [Tresiba FlexTouch U-100] 100 unit/mL (3 mL) Insulin Pen 32 units Sub-Q DAILY Qty: 0 RF: 0 insulin lispro 100 unit/mL insulin pen 5 - 15 units subcut TID RF: 0 Follow up/Referrals: Leonidas Oreilly [Other] - 05/14/18 4:05 pm (As soon as available.-appt:05/14 @ 4: 05 check in for a 4:20 w/p.nayla @ [facility]) Provider Discharge Instructions Diet: Carb-consistent/Diabetic Activity: Activity as tolerated Skin/Wound/Dressing Care Report to your healthcare provider any signs of infection, such as:: chills, fever, increased pain, unusual drainage and unusual redness Visit Report/Discharge Packet Instructions: Diabetic Ketoacidosis, DI for Diabetic Ketoacidosis Visit Report Forms: Stroke Signs & Symptoms Discharge Data Attending Provider: Susy Vargas Admit Date/Time: 05/06/18 15:39
[2018-05-08] MEDS: HEPARIN 5,000 UNIT/ML VIAL 5000 UNIT SUBCUT (08:42)
[2018-05-08] MEDS: INSULIN ASPART 100 UNIT/ML INSULN PEN SUBCUT (08:59)
[2018-05-08 09:07] LABS: Add Manual Diff / Slide Review NO; Basophils Absolute Auto 100 /uL (0-100); Basophils Percent Auto 1.2 % (0-2); Eosinophils Absolute Auto 200 /uL (0-450); Eosinophils Percent Auto 2.3 % (2-4); Hematocrit 38.7 % (36-46); Lymphocytes Absolute Auto 2500 /uL (1100-4500); Lymphocytes Percent Auto 34.8 % (25-40); Mean Corpuscular HGB Conc 33.5 % (30-36); Mean Corpuscular Hemoglobin 30.4 PG (26-34); Mean Corpuscular Volume 90.8 fL (80-100); Monocytes Absolute Auto 800 /uL (0-900); Neutrophils Absolute Auto 3600 /uL (1500-7000); Neutrophils Percent Auto 50.7 % (50-75); Platelet Count 302 X10^3/uL (150-400); Red Blood Cell Count 4.26 X10^6/uL (4.0-5.2); Red Cell Distribution Width 13.5 % (11.6-14.8); White Blood Cell Count 7.2 X10^3/uL (4.5-11.0)
[2018-05-08 09:20] LABS: BUN Creatinine Ratio 26.7 (6-22); Blood Urea Nitrogen 16 mg/dL (7-17); Calcium 8.4 mg/dL (8.4-10.2); Carbon Dioxide 21 mmol/L (22-32); Chloride 109 mmol/L (98-107); Estimated Glomerular Filt Rate > 60.0 mL/min (>60); Glucose 125 mg/dL (70-100); HEMOLYSIS < 15 (0-50); Potassium 3.1 mmol/L (3.4-5.1); Sodium 138 mmol/L (137-145)
--- NOTE | 2018-05-08 11:43 | PC.NURSE ---
Discharge Note: Pt with uneventful shift. Pt with BG 71 pre meal, 165 after meal, given 2 units lispro insulin per protocol and pt's preference for timing of insulin admin. Pt given discharge instructions re DKA, medications and diet. Pt's home medication given to pt. Pt helped to front door after IV removed and telemetry removed. Pt A and O x4 on discharge, denies pain, SOB or any discomfort. Pt accompanied to private vehicle with mother.
--- NOTE | 2018-05-08 13:04 | CM.DPNOTE ---
DCP/Discharge Per MD patient to discharge home today. Patient agreeable to discharge. Plan: patient discharged home today via pov. No discharge needs or concerns.
== END 2018-05-08 11:42 | disposition home or self-care (01) | DRG 639 ==
LOC: ED 12:35 → ICU 15:40
PROVIDERS: Admitting Provider Internal Medicine; Emergency Provider Emergency Medicine; Visit Provider Internal Medicine
DX: E10.10 Type 1 diabetes mellitus with ketoacidosis without coma (principal); B37.3 Candidiasis of vulva and vagina; R51 Headache
CPT/HCPCS: 36415; 36591; 71045; 74018; 80048; 80051; 80053; 81001; 81025; 82009; 82805; 82962; 83605; 83690; 84100; 85025; 87086; 87797; 96361; 96365; 96366; 96367; 96375; 99284; 99285; J0696; J1170; J1644; J1885; J2405; J3480

== ENCOUNTER 2018-07-02 08:10 | Inpatient (IN) | payer MEDICAID, SELFPAY ==
[2018-05-06 15:41] VITALS: BMI 21.0
[2018-07-02] VITALS (15 sets, daily range): BP systolic 96–122; BP diastolic 38–81; PULSE 101–124; RESP 12–118; TEMP 36.1–38; O2SAT 97–100; BMI 20.7
[2018-07-02] MEDS: SODIUM CHLORIDE 0.9% 1,000 ML 1000 ML IV ×2 (08:58→10:24)
[2018-07-02 09:00] LABS: Influenza A and B by PCR Rapid Negative (Negative)
--- NOTE | 2018-07-02 09:19 | ED.GENADULT ---
HPI - General Adult General Chief complaint: Diabetic Problem Stated complaint: DIABETIC,NKA Time Seen by Provider: 07/02/18 09:04 Source: patient and other (boyfriend) Mode of arrival: ambulatory Limitations: no limitations History of Present Illness HPI narrative: this is a 28-year-old female who comes in with complaint of aching all over, nausea, abdominal pain and concern for DKA. Patient states she has not checked her sugar at home today. Patient states she is a brittle diabetic. She is on insulin. She states she does not take any other medications no known kidney or other end-organ damage. The patient states she has not had any fevers. She has not been vomiting and states she does not typically start vomiting right away. She has not had any diarrhea or constipation. She has Not been having a lot of polyuria. She is quite dry and very thirsty. denying any shortness of breath, chest pain. Patient states that she does get hives and difficulty breathing with morphine as well as cherries and has reactions to iodine and shellfish. Patient's most recent stay was in April. Related Data Home Medications Medication Instructions Recorded Confirmed Tresiba FlexTouch U-100 32 units SUB-Q DAILY #0 10/29/17 07/02/18 insulin lispro 5 - 15 units SUBCUT TID 05/06/18 07/02/18 Allergies Allergy/AdvReac Type Severity Reaction Status Date / Time abdalla [ABDALLA] Allergy Intermediate Hives, Verified 07/02/18 08:16 pruritus iodine [IODINE] Allergy Intermediate rash, itchy Verified 07/02/18 08:16 morphine Allergy Intermediate Difficulty Verified 07/02/18 08:16 Breathing shellfish derived Allergy Intermediate rash Verified 07/02/18 08:16 [SHELLFISH DERIVED] adhesive [ADHESIVE] Allergy Unknown tape Verified 07/02/18 08:16 latex [LATEX] Allergy Unknown Hives Verified 07/02/18 08:16 Review of Systems Review of Systems ROS Unobtainable: All systems reviewed & are unremarkable except as noted in HPI and below Constitutional Reports body ache(s), Denies chills, Denies fever(s), Denies headache(s), Denies lethargy and Denies weakness ENT Ears, Nose, Mouth, and Throat: Denies headache(s), Denies nasal congestion and Reports other ( dry mouth) Cardiovascular Denies chest pain, Denies edema, Denies dyspnea and Denies dyspnea on exertion Respiratory Denies chest congestion, Denies cough, Denies dyspnea, Denies dyspnea on exertion and Denies wheezing Gastrointestinal Gastrointestinal: Reports abdominal pain, Denies melena, Denies hematochezia, Denies change in bowel habits, Denies constipation, Denies diarrhea, Reports nausea and Denies vomiting Genitourinary Denies hematuria, Denies urinary frequency, Denies dysuria, Denies flank pain, Denies urinary incontinence and Denies urinary urgency Musculoskeletal Reports myalgias Integumentary/Breasts Denies rash Neurologic Denies headache(s) and Denies weakness Endocrine Reports polydipsia and Denies polyuria Allergic/Immunologic Denies wheezing [facility] Medical History Irregular menstrual cycle (Acute) Status post laser lithotripsy of ureteral calculus (Acute) Migraine headache (Chronic) Type 1 diabetes mellitus (Chronic) DKA (diabetic ketoacidoses) (Resolved) History of pyelonephritis (Resolved) Nephrolithiasis (Resolved) Surgical History History of ureter stent (Resolved) Family History Father In good health Mother Cardiac disease Social History household members: significant other and family Smoking Status: Never smoker alcohol intake: never Family History Father In good health Mother Cardiac disease Social History household members: significant other and family Smoking Status: Never smoker alcohol intake: never Exam Narrative Exam Narrative: GENERAL: Alert and oriented x three, thin, pale female in mild distress. Patient appears ill but nontoxic. HEENT: Head normocephalic, atraumatic, EOMI, pupils reactive, face symmetric, nares, clear, dry mucous membranes NECK: Supple, full range of motion CARDIOVASCULAR: Tachycardic but regular rhythm without murmurs, rubs or gallops. No edema bilateral lower extremities. RESPIRATORY: Breath sounds equal bilaterally, no wheezes rales or rhonchi. ABDOMEN: Soft, nontender. Normoactive bowel sounds all 4 quadrants. No guarding or rebound, rigidity, no mass : No CVA tenderness EXTREMITIES: Normal range of motion, no clubbing or edema. Neurovascularly intact NEUROLOGICAL: Cranial nerves II through XII grossly intact. Moving all extremities SKIN: Warm, dry, no petechiae, no rashes or lesions. Initial Vital Signs Initial Vital Signs: Vital Signs Temperature 97.6 F 07/02/18 08:16 Pulse Rate 124 H 07/02/18 08:16 Respiratory Rate 22 07/02/18 08:16 Blood Pressure 122/81 07/02/18 08:16 Pulse Oximetry 100 07/02/18 08:16 Course Orders Ordered: ED Orders 07/02/18 12:20 MRSA PCR Stat Test Urine Stat 07/02/18 12:36 Urinalysis and Microscopic Stat 07/02/18 13:45 Basic Metabolic Panel DAILY 07/02/18 18:02 BMP [Basic Metabolic Panel] Q4H 07/02/18 21:30 BMP [Basic Metabolic Panel] Q4H 07/03/18 01:30 BMP [Basic Metabolic Panel] Q4H 07/03/18 05:30 BMP [Basic Metabolic Panel] Q4H 07/03/18 09:30 BMP [Basic Metabolic Panel] Q4H Acetaminophen (Tylenol) 650 mg PO Q6HR PRN PRN Reason: As Needed for Fever/Mild Pain Dextrose (D50w) 25 gm IV PRN PRN PRN Reason: Hypoglycemia Insulin Human Regular 100 unit (/ Sodium Chloride) 100 mls @ 6 mls/hr IV TITRATE BLAISE; Protocol Last Titration: 07/02/18 16:32 Dose: 1 units/hr, 1 mls/hr Titration: 07/02/18 15:26 Dose: 2 units/hr, 2 mls/hr Titration: 07/02/18 14:30 Dose: 5 units/hr, 5 mls/hr Admin: 07/02/18 10:28 Dose: 6 units/hr, 6 mls/hr Dextrose/Sodium Chloride (Dextrose 5%-0.9% Ns) 1,000 mls @ 150 mls/hr IV CONT BLAISE Last Admin: 07/02/18 15:37 Dose: 150 mls/hr Lorazepam (Ativan) 1 mg 0.02 mg/kg (1 mg) IV Q6HR PRN PRN Reason: Sedation Metoclopramide HCl (Reglan) 10 mg IV Q6HR PRN PRN Reason: Nausea And Vomiting Tresiba 32 Units 32 units SUBCUT 1300 [facility] Last Admin: 07/02/18 15:43 Dose: 32 units Ondansetron HCl (Zofran) 4 mg IV Q4HR PRN PRN Reason: Nausea And Vomiting Discontinued Medications Hydromorphone HCl (Dilaudid) 0.5 mg IV NOW ONE Stop: 07/02/18 09:21 Last Admin: 07/02/18 09:31 Dose: 0.5 mg Sodium Chloride (Normal Saline 0.9%) 1,000 mls @ 1,000 mls/hr IV BOLUS ONE Stop: 07/02/18 09:30 Last Infusion: 07/02/18 10:40 Dose: 0 mls/hr Admin: 07/02/18 08:58 Dose: 1,000 mls/hr Sodium Chloride (Normal Saline 0.9%) 1,000 mls @ 1,000 mls/hr IV BOLUS ONE Stop: 07/02/18 10:55 Last Infusion: 07/02/18 11:51 Dose: 0 mls/hr Admin: 07/02/18 10:24 Dose: 1,000 mls/hr Potassium Chloride/Sodium Chloride (Ns With Kcl 20 Meq) 1,000 mls @ 150 mls/hr IV CONT [facility] Last Infusion: 07/02/18 14:04 Dose: 0 mls/hr Infusion: 07/02/18 13:50 Dose: 0 mls/hr Admin: 07/02/18 11:26 Dose: 150 mls/hr Sodium Chloride (Normal Saline 0.9%) 1,000 mls @ 150 mls/hr IV CONT [facility] Last Admin: 07/02/18 14:05 Dose: 150 mls/hr Potassium Chloride 40 meq/ (Sodium Chloride) 520 mls @ 130 mls/hr IV NOW ONE Stop: 07/02/18 18:41 Last Admin: 07/02/18 15:35 Dose: 130 mls/hr Ondansetron HCl (Zofran) 4 mg IV NOW ONE Stop: 07/02/18 09:21 Last Admin: 07/02/18 09:31 Dose: 4 mg Sodium Bicarbonate (Sodium Bicarbonate 8.4% Syringe) 50 meq 1 meq/kg (50 meq) IV NOW ONE Stop: 07/02/18 09:57 Last Admin: 07/02/18 10:25 Dose: 50 meq Vital Signs - 8 hr 07/02/18 12:58 07/02/18 14:32 07/02/18 16:18 Temperature 99.7 F H 100.4 F H Pulse Rate 121 H 117 H 101 H Respiratory Rate 16 14 13 Blood Pressure 104/71 119/81 Pulse Oximetry 97 07/02/18 17:38 07/02/18 18:29 Temperature Pulse Rate 110 H 107 H Respiratory Rate 14 13 Blood Pressure 97/45 L 102/57 L Pulse Oximetry Medical Decision Making Lab Data Lab results reviewed: Yes I reviewed the patient's lab results. Result diagrams: 07/02/18 09:12 07/02/18 18:02 Lab Results 07/02/18 07/02/18 07/02/18 Range/Units 08:35 09:12 09:12 WBC 9.4 (4.5-11.0) X10^3/uL RBC 4.78 (4.0-5.2) X10^6/uL Hgb 15.0 (12.0-16.0) g/dL Hct 45.0 (36-46) % MCV 94.1 (80-100) fL MCH 31.3 (26-34) PG MCHC 33.2 (30-36) % RDW 13.8 (11.6-14.8) % Plt Count 424 H (150-400) X10^3/uL Neut % (Auto) 77.8 H (50-75) % Lymph % (Auto) 17.4 L (25-40) % [place] % (Auto) 3.9 (3-14) % Eos % (Auto) 0.1 L (2-4) % Baso % (Auto) 0.8 (0-2) % Neut # (Auto) 7300 H (5421-3663) /uL Lymph # (Auto) 1600 (2606-8309) /uL [place] # (Auto) 400 (0-900) /uL Eos # (Auto) 0 (0-450) /uL Baso # (Auto) 100 (0-100) /uL VBG pH (7.33-7.43) VBG pCO2 (45-50) mmHg VBG pO2 (35-45) mmHg VBG HCO3 (23-28) mmol/L VBG Total CO2 (24-29) mmol/L VBG O2 Saturation (70-75) % VBG Base Excess (0-4) mmol/L Sodium (137-145) mmol/L Potassium (3.4-5.1) mmol/L Chloride (98-107) mmol/L Carbon Dioxide (22-32) mmol/L BUN (7-17) mg/dL Creatinine (0.52-1.04) mg/dL Estimated GFR (>60) mL/min BUN/Creatinine Ratio (6-22) Glucose (70-100) mg/dL Lactate (0.7-2.1) mmol/L Calcium (8.4-10.2) mg/dL Phosphorus (2.5-4.5) mg/dL Total Bilirubin (0.2-1.3) mg/dL AST (14-36) IU/L ALT (9-52) IU/L Alkaline Phosphatase (38-126) U/L Total Protein (6.3-8.2) g/dL Albumin (3.5-5.0) g/dL Globulin (1.7-4.1) g/dL Albumin/Globulin Ratio (1.0-2.8) Procalcitonin 0.12 (<0.5) ng/mL Urine Color Urine Appearance Urine pH (4.5-8.0) Ur Specific [place] (1.000-1.035) Urine Protein (Negative) Urine Glucose (UA) (Negative) g/dL Urine Ketones (NEGATIVE) Urine Occult Blood (Negative) Urine Nitrate (Negative) Urine Bilirubin (NEGATIVE) Urine Urobilinogen (0.2) E.U./dL Ur Leukocyte Esterase (NEGATIVE) Urine RBC (0-5/HPF) Urine WBC (0-5/HPF) Ur Squamous Epith Cells Urine Bacteria (None) Ur Culture Indicated? Urine Test (Negative) Nasal Screen MRSA (PCR) (Negative) Ketones (<0.27) mmol/L Influenza A & B (PCR) Negative (Negative) 07/02/18 07/02/18 07/02/18 Range/Units 09:12 09:12 09:12 WBC (4.5-11.0) X10^3/uL RBC (4.0-5.2) X10^6/uL Hgb (12.0-16.0) g/dL Hct (36-46) % MCV (80-100) fL MCH (26-34) PG MCHC (30-36) % RDW (11.6-14.8) % Plt Count (150-400) X10^3/uL Neut % (Auto) (50-75) % Lymph % (Auto) (25-40) % [place] % (Auto) (3-14) % Eos % (Auto) (2-4) % Baso % (Auto) (0-2) % Neut # (Auto) (7450-7534) /uL Lymph # (Auto) (3778-5661) /uL [place] # (Auto) (0-900) /uL Eos # (Auto) (0-450) /uL Baso # (Auto) (0-100) /uL VBG pH (7.33-7.43) VBG pCO2 (45-50) mmHg VBG pO2 (35-45) mmHg VBG HCO3 (23-28) mmol/L VBG Total CO2 (24-29) mmol/L VBG O2 Saturation (70-75) % VBG Base Excess (0-4) mmol/L Sodium 140 (137-145) mmol/L Potassium 4.8 (3.4-5.1) mmol/L Chloride 99 (98-107) mmol/L Carbon Dioxide 5 L* (22-32) mmol/L BUN 17 (7-17) mg/dL Creatinine 0.90 (0.52-1.04) mg/dL Estimated GFR > 60.0 (>60) mL/min BUN/Creatinine Ratio 18.9 (6-22) Glucose 588 H* (70-100) mg/dL Lactate 1.0 (0.7-2.1) mmol/L Calcium 9.4 (8.4-10.2) mg/dL Phosphorus 6.6 H (2.5-4.5) mg/dL Total Bilirubin 0.4 (0.2-1.3) mg/dL AST 16 (14-36) IU/L ALT 25 (9-52) IU/L Alkaline Phosphatase 188 H (38-126) U/L Total Protein 8.7 H (6.3-8.2) g/dL Albumin 5.3 H (3.5-5.0) g/dL Globulin 3.4 (1.7-4.1) g/dL Albumin/Globulin Ratio 1.6 (1.0-2.8) Procalcitonin (<0.5) ng/mL Urine Color Urine Appearance Urine pH (4.5-8.0) Ur Specific [place] (1.000-1.035) Urine Protein (Negative) Urine Glucose (UA) (Negative) g/dL Urine Ketones (NEGATIVE) Urine Occult Blood (Negative) Urine Nitrate (Negative) Urine Bilirubin (NEGATIVE) Urine Urobilinogen (0.2) E.U./dL Ur Leukocyte Esterase (NEGATIVE) Urine RBC (0-5/HPF) Urine WBC (0-5/HPF) Ur Squamous Epith Cells Urine Bacteria (None) Ur Culture Indicated? Urine Test (Negative) Nasal Screen MRSA (PCR) (Negative) Ketones 16.48 H (<0.27) mmol/L Influenza A & B (PCR) (Negative) 07/02/18 07/02/18 07/02/18 Range/Units 09:26 12:20 12:20 WBC (4.5-11.0) X10^3/uL RBC (4.0-5.2) X10^6/uL Hgb (12.0-16.0) g/dL Hct (36-46) % MCV (80-100) fL MCH (26-34) PG MCHC (30-36) % RDW (11.6-14.8) % Plt Count (150-400) X10^3/uL Neut % (Auto) (50-75) % Lymph % (Auto) (25-40) % [place] % (Auto) (3-14) % Eos % (Auto) (2-4) % Baso % (Auto) (0-2) % Neut # (Auto) (0373-1598) /uL Lymph # (Auto) (9214-7892) /uL [place] # (Auto) (0-900) /uL Eos # (Auto) (0-450) /uL Baso # (Auto) (0-100) /uL VBG pH 7.08 L* (7.33-7.43) VBG pCO2 20.0 L (45-50) mmHg VBG pO2 47 H (35-45) mmHg VBG HCO3 6 L (23-28) mmol/L VBG Total CO2 7 L (24-29) mmol/L VBG O2 Saturation 67 L (70-75) % VBG Base Excess -24.0 L (0-4) mmol/L Sodium (137-145) mmol/L Potassium (3.4-5.1) mmol/L Chloride (98-107) mmol/L Carbon Dioxide (22-32) mmol/L BUN (7-17) mg/dL Creatinine (0.52-1.04) mg/dL Estimated GFR (>60) mL/min BUN/Creatinine Ratio (6-22) Glucose (70-100) mg/dL Lactate (0.7-2.1) mmol/L Calcium (8.4-10.2) mg/dL Phosphorus (2.5-4.5) mg/dL Total Bilirubin (0.2-1.3) mg/dL AST (14-36) IU/L ALT (9-52) IU/L Alkaline Phosphatase (38-126) U/L Total Protein (6.3-8.2) g/dL Albumin (3.5-5.0) g/dL Globulin (1.7-4.1) g/dL Albumin/Globulin Ratio (1.0-2.8) Procalcitonin (<0.5) ng/mL Urine Color Urine Appearance Urine pH (4.5-8.0) Ur Specific [place] (1.000-1.035) Urine Protein (Negative) Urine Glucose (UA) (Negative) g/dL Urine Ketones (NEGATIVE) Urine Occult Blood (Negative) Urine Nitrate (Negative) Urine Bilirubin (NEGATIVE) Urine Urobilinogen (0.2) E.U./dL Ur Leukocyte Esterase (NEGATIVE) Urine RBC (0-5/HPF) Urine WBC (0-5/HPF) Ur Squamous Epith Cells Urine Bacteria (None) Ur Culture Indicated? Urine Test Negative (Negative) Nasal Screen MRSA (PCR) Negative for mrsa (Negative) Ketones (<0.27) mmol/L Influenza A & B (PCR) (Negative) 07/02/18 07/02/18 07/02/18 Range/Units 12:36 13:45 18:02 WBC (4.5-11.0) X10^3/uL RBC (4.0-5.2) X10^6/uL Hgb (12.0-16.0) g/dL Hct (36-46) % MCV (80-100) fL MCH (26-34) PG MCHC (30-36) % RDW (11.6-14.8) % Plt Count (150-400) X10^3/uL Neut % (Auto) (50-75) % Lymph % (Auto) (25-40) % [place] % (Auto) (3-14) % Eos % (Auto) (2-4) % Baso % (Auto) (0-2) % Neut # (Auto) (0571-3631) /uL Lymph # (Auto) (8058-7503) /uL [place] # (Auto) (0-900) /uL Eos # (Auto) (0-450) /uL Baso # (Auto) (0-100) /uL VBG pH (7.33-7.43) VBG pCO2 (45-50) mmHg VBG pO2 (35-45) mmHg VBG HCO3 (23-28) mmol/L VBG Total CO2 (24-29) mmol/L VBG O2 Saturation (70-75) % VBG Base Excess (0-4) mmol/L Sodium 146 H 141 (137-145) mmol/L Potassium 3.7 4.2 (3.4-5.1) mmol/L Chloride 115 H 113 H (98-107) mmol/L Carbon Dioxide 9 L* 16 L (22-32) mmol/L BUN 15 12 (7-17) mg/dL Creatinine 0.80 0.70 (0.52-1.04) mg/dL Estimated GFR > 60.0 > 60.0 (>60) mL/min BUN/Creatinine Ratio 18.8 17.1 (6-22) Glucose 230 H D 150 H (70-100) mg/dL Lactate (0.7-2.1) mmol/L Calcium 8.2 L 7.8 L (8.4-10.2) mg/dL Phosphorus (2.5-4.5) mg/dL Total Bilirubin (0.2-1.3) mg/dL AST (14-36) IU/L ALT (9-52) IU/L Alkaline Phosphatase (38-126) U/L Total Protein (6.3-8.2) g/dL Albumin (3.5-5.0) g/dL Globulin (1.7-4.1) g/dL Albumin/Globulin Ratio (1.0-2.8) Procalcitonin (<0.5) ng/mL Urine Color Red Urine Appearance Clear Urine pH 5.0 (4.5-8.0) Ur Specific [place] 1.020 (1.000-1.035) Urine Protein 1+ H (Negative) Urine Glucose (UA) 2+ H (Negative) g/dL Urine Ketones 3+ H (NEGATIVE) Urine Occult Blood 3+ H (Negative) Urine Nitrate Negative (Negative) Urine Bilirubin Negative (NEGATIVE) Urine Urobilinogen 0.2 (0.2) E.U./dL Ur Leukocyte Esterase Negative (NEGATIVE) Urine RBC >100/hpf H (0-5/HPF) Urine WBC 1-5/hpf (0-5/HPF) Ur Squamous Epith Cells 1-5 /hpf Urine Bacteria Moderate (10-30) H (None) Ur Culture Indicated? Cult not indicated Urine Test (Negative) Nasal Screen MRSA (PCR) (Negative) Ketones (<0.27) mmol/L Influenza A & B (PCR) (Negative) Point of Care Testing Glucose POC 161 Point of care testing: Point of Care Testing Glucose POC 161 ECG Data Attestation: I personally reviewed and interpreted this ECG as follows: Prior ECG tracings: available for review Interpretation: Sinus tachycardia, ventricular rate of 111 P are 108 QRS of 74 and QTC of 406. Patient has nonspecific ST changes. Patient is short [place] interval. Patient's prior EKG from 02/03/2018 and priors appears fairly similar although some have more artifact. [facility] Narrative Medical decision making narrative: Patient comes in with complaint of feeling like she might be in DKA with all-over body aches, abdominal pain. patient's serum sugar is 588, she has a pH of 7.09 on VBG. This is consistent with her bicarb of 5. Her anion gap after a sodium that is corrected is 48, patient has had 1 full L and receiving a 2nd normal saline. Discussed with Dr. Arita insulin drip was started at point 1 units/kilos per hour, plan for bicarb 50 mEq and potassium replacement. Dr. Arita accepts. Discharge Plan Departure Patient Disposition: Admitted As Inpatient Clinical Impression: DKA (diabetic ketoacidoses) Discharge Date/Time: 07/02/18 11:53 Interventions: ED Discharge Assessment Last Done: 07/02/18 11:53 Admit Date/Time: 07/02/18 10:52 Admit Provider: Gale Arita
[2018-07-02 09:22] LABS: Add Manual Diff / Slide Review NO; Basophils Absolute Auto 100 /uL (0-100); Basophils Percent Auto 0.8 % (0-2); Eosinophils Absolute Auto 0 /uL (0-450); Eosinophils Percent Auto 0.1 % (2-4); Lymphocytes Absolute Auto 1600 /uL (1100-4500); Lymphocytes Percent Auto 17.4 % (25-40); Mean Corpuscular HGB Conc 33.2 % (30-36); Mean Corpuscular Hemoglobin 31.3 PG (26-34); Mean Corpuscular Volume 94.1 fL (80-100); Monocytes Absolute Auto 400 /uL (0-900); Monocytes Percent Auto 3.9 % (3-14); Neutrophils Absolute Auto 7300 /uL (1500-7000); Neutrophils Percent Auto 77.8 % (50-75); Platelet Count 424 X10^3/uL (150-400); Red Blood Cell Count 4.78 X10^6/uL (4.0-5.2); Red Cell Distribution Width 13.8 % (11.6-14.8); White Blood Cell Count 9.4 X10^3/uL (4.5-11.0)
--- NOTE | 2018-07-02 09:26 | ED_ITS ---
HPI - General Adult General Chief complaint: Diabetic Problem Stated complaint: DIABETIC,NKA Time Seen by Provider: 07/02/18 09:04 Source: patient and other (boyfriend) Mode of arrival: ambulatory Limitations: no limitations History of Present Illness HPI narrative: this is a 28-year-old female who comes in with complaint of aching all over, nausea, abdominal pain and concern for DKA. Patient states she has not checked her sugar at home today. Patient states she is a brittle diabetic. She is on insulin. She states she does not take any other medications no known kidney or other end-organ damage. The patient states she has not had any fevers. She has not been vomiting and states she does not typically start vomiting right away. She has not had any diarrhea or constipation. She has Not been having a lot of polyuria. She is quite dry and very thirsty. denying any shortness of breath, chest pain. Patient states that she does get hives and difficulty breathing with morphine as well as cherries and has reactions to iodine and shellfish. Patient's most recent stay was in April. Related Data Home Medications Medication Instructions Recorded Confirmed Tresiba FlexTouch U-100 32 units SUB-Q DAILY #0 10/29/17 07/02/18 insulin lispro 5 - 15 units SUBCUT TID 05/06/18 07/02/18 Allergies Allergy/AdvReac Type Severity Reaction Status Date / Time abdalla [ABDALLA] Allergy Intermediate Hives, Verified 07/02/18 08:16 pruritus iodine [IODINE] Allergy Intermediate rash, itchy Verified 07/02/18 08:16 morphine Allergy Intermediate Difficulty Verified 07/02/18 08:16 Breathing shellfish derived Allergy Intermediate rash Verified 07/02/18 08:16 [SHELLFISH DERIVED] adhesive [ADHESIVE] Allergy Unknown tape Verified 07/02/18 08:16 latex [LATEX] Allergy Unknown Hives Verified 07/02/18 08:16 Review of Systems Review of Systems ROS Unobtainable: All systems reviewed & are unremarkable except as noted in HPI and below Constitutional Reports body ache(s), Denies chills, Denies fever(s), Denies headache(s), Denies lethargy and Denies weakness ENT Ears, Nose, Mouth, and Throat: Denies headache(s), Denies nasal congestion and Reports other ( dry mouth) Cardiovascular Denies chest pain, Denies edema, Denies dyspnea and Denies dyspnea on exertion Respiratory Denies chest congestion, Denies cough, Denies dyspnea, Denies dyspnea on exertion and Denies wheezing Gastrointestinal Gastrointestinal: Reports abdominal pain, Denies melena, Denies hematochezia, Denies change in bowel habits, Denies constipation, Denies diarrhea, Reports nausea and Denies vomiting Genitourinary Denies hematuria, Denies urinary frequency, Denies dysuria, Denies flank pain, D enies urinary incontinence and Denies urinary urgency Musculoskeletal Reports myalgias Integumentary/Breasts Denies rash Neurologic Denies headache(s) and Denies weakness Endocrine Reports polydipsia and Denies polyuria Allergic/Immunologic Denies wheezing [facility] Medical History Irregular menstrual cycle (Acute) Status post laser lithotripsy of ureteral calculus (Acute) Migraine headache (Chronic) Type 1 diabetes mellitus (Chronic) DKA (diabetic ketoacidoses) (Resolved) History of pyelonephritis (Resolved) Nephrolithiasis (Resolved) Surgical History History of ureter stent (Resolved) Family History Father In good health Mother Cardiac disease Social History household members: significant other and family Smoking Status: Never smoker alcohol intake: never Family History Father In good health Mother Cardiac disease Social History household members: significant other and family Smoking Status: Never smoker alcohol intake: never Exam Narrative Exam Narrative: GENERAL: Alert and oriented x three, thin, pale female in mild distress. Patient appears ill but nontoxic. HEENT: Head normocephalic, atraumatic, EOMI, pupils reactive, face symmetric, nares, clear, dry mucous membranes NECK: Supple, full range of motion CARDIOVASCULAR: Tachycardic but regular rhythm without murmurs, rubs or gallops. No edema bilateral lower extremities. RESPIRATORY: Breath sounds equal bilaterally, no wheezes rales or rhonchi. ABDOMEN: Soft, nontender. Normoactive bowel sounds all 4 quadrants. No guarding or rebound, rigidity, no mass : No CVA tenderness EXTREMITIES: Normal range of motion, no clubbing or edema. Neurovascularly intact NEUROLOGICAL: Cranial nerves II through XII grossly intact. Moving all e xtremities SKIN: Warm, dry, no petechiae, no rashes or lesions. Initial Vital Signs Initial Vital Signs: Vital Signs Temperature 97.6 F 07/02/18 08:16 Pulse Rate 124 H 07/02/18 08:16 Respiratory Rate 22 07/02/18 08:16 Blood Pressure 122/81 07/02/18 08:16 Pulse Oximetry 100 07/02/18 08:16 Course Orders Ordered: ED Orders 07/02/18 12:20 MRSA PCR Stat Test Urine Stat 07/02/18 12:36 Urinalysis and Microscopic Stat 07/02/18 13:45 Basic Metabolic Panel DAILY 07/02/18 18:02 BMP [Basic Metabolic Panel] Q4H 07/02/18 21:30 BMP [Basic Metabolic Panel] Q4H 07/03/18 01:30 BMP [Basic Metabolic Panel] Q4H 07/03/18 05:30 BMP [Basic Metabolic Panel] Q4H 07/03/18 09:30 BMP [Basic Metabolic Panel] Q4H Acetaminophen (Tylenol) 650 mg PO Q6HR PRN PRN Reason: As Needed for Fever/Mild Pain Dextrose (D50w) 25 gm IV PRN PRN PRN Reason: Hypoglycemia Insulin Human Regular 100 unit (/ Sodium Chloride) 100 mls @ 6 mls/hr IV TITRATE BLAISE; Protocol Last Titration: 07/02/18 16:32 Dose: 1 units/hr, 1 mls/hr Titration: 07/02/18 15:26 Dose: 2 units/hr, 2 mls/hr Titration: 07/02/18 14:30 Dose: 5 units/hr, 5 mls/hr Admin: 07/02/18 10:28 Dose: 6 units/hr, 6 mls/hr Dextrose/Sodium Chloride (Dextrose 5%-0.9% Ns) 1,000 mls @ 150 mls/hr IV CONT BLAISE Last Admin: 07/02/18 15:37 Dose: 150 mls/hr Lorazepam (Ativan) 1 mg 0.02 mg/kg (1 mg) IV Q6HR PRN PRN Reason: Sedation Metoclopramide HCl (Reglan) 10 mg IV Q6HR PRN PRN Reason: Nausea And Vomiting Tresiba 32 Units 32 units SUBCUT 1300 [facility] Last Admin: 07/02/18 15:43 Dose: 32 units Ondansetron HCl (Zofran) 4 mg IV Q4HR PRN PRN Reason: Nausea And Vomiting Discontinued Medications Hydromorphone HCl (Dilaudid) 0.5 mg IV NOW ONE Stop: 07/02/18 09:21 Last Admin: 07/02/18 09:31 Dose: 0.5 mg Sodium Chloride (Normal Saline 0.9%) 1,000 mls @ 1,000 mls/hr IV BOLUS ONE Stop: 07/02/18 09:30 Last Infusion: 07/02/18 10:40 Dose: 0 mls/hr Admin: 07/02/18 08:58 Dose: 1,000 mls/hr Sodium Chloride (Normal Saline 0.9%) 1,000 mls @ 1,000 mls/hr IV BOLUS ONE Stop: 07/02/18 10:55 Last Infusion: 07/02/18 11:51 Dose: 0 mls/hr Admin: 07/02/18 10:24 Dose: 1,000 mls/hr Potassium Chloride/Sodium Chloride (Ns With Kcl 20 Meq) 1,000 mls @ 150 mls/hr IV CONT BLAISE Last Infusion: 07/02/18 14:04 Dose: 0 mls/hr Infusion: 07/02/18 13:50 Dose: 0 mls/hr Admin: 07/02/18 11:26 Dose: 150 mls/hr Sodium Chloride (Normal Saline 0.9%) 1,000 mls @ 150 mls/hr IV CONT [facility] Last Admin: 07/02/18 14:05 Dose: 150 mls/hr Potassium Chloride 40 meq/ (Sodium Chloride) 520 mls @ 130 mls/hr IV NOW ONE Stop: 07/02/18 18:41 Last Admin: 07/02/18 15:35 Dose: 130 mls/hr Ondansetron HCl (Zofran) 4 mg IV NOW ONE Stop: 07/02/18 09:21 Last Admin: 07/02/18 09:31 Dose: 4 mg Sodium Bicarbonate (Sodium Bicarbonate 8.4% Syringe) 50 meq 1 meq/kg (50 meq) IV NOW ONE Stop: 07/02/18 09:57 Last Admin: 07/02/18 10:25 Dose: 50 meq Vital Signs - 8 hr 07/02/18 12:58 07/02/18 14:32 07/02/18 16:18 Temperature 99.7 F H 100.4 F H Pulse Rate 121 H 117 H 101 H Respiratory Rate 16 14 13 Blood Pressure 104/71 119/81 Pulse Oximetry 97 07/02/18 17:38 07/02/18 18:29 Temperature Pulse Rate 110 H 107 H Respiratory Rate 14 13 Blood Pressure 97/45 L 102/57 L Pulse Oximetry Medical Decision Making Lab Data Lab results reviewed: Yes I reviewed the patient's lab results. Result diagrams: 07/02/18 09:12 07/02/18 18:02 Lab Results 07/02/18 07/02/18 07/02/18 Range/Units 08:35 09:12 09:12 WBC 9.4 (4.5-11.0) X10^3/uL RBC 4.78 (4.0-5.2) X10^6/uL Hgb 15.0 (12.0-16.0) g/dL Hct 45.0 (36-46) % MCV 94.1 (80-100) fL MCH 31.3 (26-34) PG MCHC 33.2 (30-36) % RDW 13.8 (11.6-14.8) % Plt Count 424 H (150-400) X10^3/uL Neut % (Auto) 77.8 H (50-75) % Lymph % (Auto) 17.4 L (25-40) % [place] % (Auto) 3.9 (3-14) % Eos % (Auto) 0.1 L (2-4) % Baso % (Auto) 0.8 (0-2) % Neut # (Auto) 7300 H (4885-1862) /uL Lymph # (Auto) 1600 (6888-1761) /uL [place] # (Auto) 400 (0-900) /uL Eos # (Auto) 0 (0-450) /uL Baso # (Auto) 100 (0-100) /uL VBG pH (7.33-7.43) VBG pCO2 (45-50) mmHg VBG pO2 (35-45) mmHg VBG HCO3 (23-28) mmol/L VBG Total CO2 (24-29) mmol/L VBG O2 Saturation (70-75) % VBG Base Excess (0-4) mmol/L Sodium (137-145) mmol/L Potassium (3.4-5.1) mmol/L Chloride (98-107) mmol/L Carbon Dioxide (22-32) mmol/L BUN (7-17) mg/dL Creatinine (0.52-1.04) mg/dL Estimated GFR (>60) mL/min BUN/Creatinine Ratio (6-22) Glucose (70-100) mg/dL Lactate (0.7-2.1) mmol/L Calcium (8.4-10.2) mg/dL Phosphorus (2.5-4.5) mg/dL Total Bilirubin (0.2-1.3) mg/dL AST (14-36) IU/L ALT (9-52) IU/L Alkaline Phosphatase (38-126) U/L Total Protein (6.3-8.2) g/dL Albumin (3.5-5.0) g/dL Globulin (1.7-4.1) g/dL Albumin/Globulin Ratio (1.0-2.8) Procalcitonin 0.12 (<0.5) ng/mL Urine Color Urine Appearance Urine pH (4.5-8.0) Ur Specific [place] (1.000-1.035) Urine Protein (Negative) Urine Glucose (UA) (Negative) g/dL Urine Ketones (NEGATIVE) Urine Occult Blood (Negative) Urine Nitrate (Negative) Urine Bilirubin (NEGATIVE) Urine Urobilinogen (0.2) E.U./dL Ur Leukocyte Esterase (NEGATIVE) Urine RBC (0-5/HPF) Urine WBC (0-5/HPF) Ur Squamous Epith Cells Urine Bacteria (None) Ur Culture Indicated? Urine Test (Negative) Nasal Screen MRSA (PCR) (Negative) Ketones (<0.27) mmol/L Influenza A & B (PCR) Negative (Negative) 07/02/18 07/02/18 07/02/18 Range/Units 09:12 09:12 09:12 WBC (4.5-11.0) X10^3/uL RBC (4.0-5.2) X10^6/uL Hgb (12.0-16.0) g/dL Hct (36-46) % MCV (80-100) fL MCH (26-34) PG MCHC (30-36) % RDW (11.6-14.8) % Plt Count (150-400) X10^3/uL Neut % (Auto) (50-75) % Lymph % (Auto) (25-40) % [place] % (Auto) (3-14) % Eos % (Auto) (2-4) % Baso % (Auto) (0-2) % Neut # (Auto) (7030-2740) /uL Lymph # (Auto) (7245-0446) /uL [place] # (Auto) (0-900) /uL Eos # (Auto) (0-450) /uL Baso # (Auto) (0-100) /uL VBG pH (7.33-7.43) VBG pCO2 (45-50) mmHg VBG pO2 (35-45) mmHg VBG HCO3 (23-28) mmol/L VBG Total CO2 (24-29) mmol/L VBG O2 Saturation (70-75) % VBG Base Excess (0-4) mmol/L Sodium 140 (137-145) mmol/L Potassium 4.8 (3.4-5.1) mmol/L Chloride 99 (98-107) mmol/L Carbon Dioxide 5 L* (22-32) mmol/L BUN 17 (7-17) mg/dL Creatinine 0.90 (0.52-1.04) mg/dL Estimated GFR > 60.0 (>60) mL/min BUN/Creatinine Ratio 18.9 (6-22) Glucose 588 H* (70-100) mg/dL Lactate 1.0 (0.7-2.1) mmol/L Calcium 9.4 (8.4-10.2) mg/dL Phosphorus 6.6 H (2.5-4.5) mg/dL Total Bilirubin 0.4 (0.2-1.3) mg/dL AST 16 (14-36) IU/L ALT 25 (9-52) IU/L Alkaline Phosphatase 188 H (38-126) U/L Total Protein 8.7 H (6.3-8.2) g/dL Albumin 5.3 H (3.5-5.0) g/dL Globulin 3.4 (1.7-4.1) g/dL Albumin/Globulin Ratio 1.6 (1.0-2.8) Procalcitonin (<0.5) ng/mL Urine Color Urine Appearance Urine pH (4.5-8.0) Ur Specific [place] (1.000-1.035) Urine Protein (Negative) Urine Glucose (UA) (Negative) g/dL Urine Ketones (NEGATIVE) Urine Occult Blood (Negative) Urine Nitrate (Negative) Urine Bilirubin (NEGATIVE) Urine Urobilinogen (0.2) E.U./dL Ur Leukocyte Esterase (NEGATIVE) Urine RBC (0-5/HPF) Urine WBC (0-5/HPF) Ur Squamous Epith Cells Urine Bacteria (None) Ur Culture Indicated? Urine Test (Negative) Nasal Screen MRSA (PCR) (Negative) Ketones 16.48 H (<0.27) mmol/L Influenza A & B (PCR) (Negative) 07/02/18 07/02/18 07/02/18 Range/Units 09:26 12:20 12:20 WBC (4.5-11.0) X10^3/uL RBC (4.0-5.2) X10^6/uL Hgb (12.0-16.0) g/dL Hct (36-46) % MCV (80-100) fL MCH (26-34) PG MCHC (30-36) % RDW (11.6-14.8) % Plt Count (150-400) X10^3/uL Neut % (Auto) (50-75) % Lymph % (Auto) (25-40) % [place] % (Auto) (3-14) % Eos % (Auto) (2-4) % Baso % (Auto) (0-2) % Neut # (Auto) (7896-0279) /uL Lymph # (Auto) (3546-8368) /uL [place] # (Auto) (0-900) /uL Eos # (Auto) (0-450) /uL Baso # (Auto) (0-100) /uL VBG pH 7.08 L* (7.33-7.43) VBG pCO2 20.0 L (45-50) mmHg VBG pO2 47 H (35-45) mmHg VBG HCO3 6 L (23-28) mmol/L VBG Total CO2 7 L (24-29) mmol/L VBG O2 Saturation 67 L (70-75) % VBG Base Excess -24.0 L (0-4) mmol/L Sodium (137-145) mmol/L Potassium (3.4-5.1) mmol/L Chloride (98-107) mmol/L Carbon Dioxide (22-32) mmol/L BUN (7-17) mg/dL Creatinine (0.52-1.04) mg/dL Estimated GFR (>60) mL/min BUN/Creatinine Ratio (6-22) Glucose (70-100) mg/dL Lactate (0.7-2.1) mmol/L Calcium (8.4-10.2) mg/dL Phosphorus (2.5-4.5) mg/dL Total Bilirubin (0.2-1.3) mg/dL AST (14-36) IU/L ALT (9-52) IU/L Alkaline Phosphatase (38-126) U/L Total Protein (6.3-8.2) g/dL Albumin (3.5-5.0) g/dL Globulin (1.7-4.1) g/dL Albumin/Globulin Ratio (1.0-2.8) Procalcitonin (<0.5) ng/mL Urine Color Urine Appearance Urine pH (4.5-8.0) Ur Specific [place] (1.000-1.035) Urine Protein (Negative) Urine Glucose (UA) (Negative) g/dL Urine Ketones (NEGATIVE) Urine Occult Blood (Negative) Urine Nitrate (Negative) Urine Bilirubin (NEGATIVE) Urine Urobilinogen (0.2) E.U./dL Ur Leukocyte Esterase (NEGATIVE) Urine RBC (0-5/HPF) Urine WBC (0-5/HPF) Ur Squamous Epith Cells Urine Bacteria (None) Ur Culture Indicated? Urine Test Negative (Negative) Nasal Screen MRSA (PCR) Negative for mrsa (Negative) Ketones (<0.27) mmol/L Influenza A & B (PCR) (Negative) 07/02/18 07/02/18 07/02/18 Range/Units 12:36 13:45 18:02 WBC (4.5-11.0) X10^3/uL RBC (4.0-5.2) X10^6/uL Hgb (12.0-16.0) g/dL Hct (36-46) % MCV (80-100) fL MCH (26-34) PG MCHC (30-36) % RDW (11.6-14.8) % Plt Count (150-400) X10^3/uL Neut % (Auto) (50-75) % Lymph % (Auto) (25-40) % [place] % (Auto) (3-14) % Eos % (Auto) (2-4) % Baso % (Auto) (0-2) % Neut # (Auto) (0940-1977) /uL Lymph # (Auto) (0928-7367) /uL [place] # (Auto) (0-900) /uL Eos # (Auto) (0-450) /uL Baso # (Auto) (0-100) /uL VBG pH (7.33-7.43) VBG pCO2 (45-50) mmHg VBG pO2 (35-45) mmHg VBG HCO3 (23-28) mmol/L VBG Total CO2 (24-29) mmol/L VBG O2 Saturation (70-75) % VBG Base Excess (0-4) mmol/L Sodium 146 H 141 (137-145) mmol/L Potassium 3.7 4.2 (3.4-5.1) mmol/L Chloride 115 H 113 H (98-107) mmol/L Carbon Dioxide 9 L* 16 L (22-32) mmol/L BUN 15 12 (7-17) mg/dL Creatinine 0.80 0.70 (0.52-1.04) mg/dL Estimated GFR > 60.0 > 60.0 (>60) mL/min BUN/Creatinine Ratio 18.8 17.1 (6-22) Glucose 230 H D 150 H (70-100) mg/dL Lactate (0.7-2.1) mmol/L Calcium 8.2 L 7.8 L (8.4-10.2) mg/dL Phosphorus (2.5-4.5) mg/dL Total Bilirubin (0.2-1.3) mg/dL AST (14-36) IU/L ALT (9-52) IU/L Alkaline Phosphatase (38-126) U/L Total Protein (6.3-8.2) g/dL Albumin (3.5-5.0) g/dL Globulin (1.7-4.1) g/dL Albumin/Globulin Ratio (1.0-2.8) Procalcitonin (<0.5) ng/mL Urine Color Red Urine Appearance Clear Urine pH 5.0 (4.5-8.0) Ur Specific [place] 1.020 (1.000-1.035) Urine Protein 1+ H (Negative) Urine Glucose (UA) 2+ H (Negative) g/dL Urine Ketones 3+ H (NEGATIVE) Urine Occult Blood 3+ H (Negative) Urine Nitrate Negative (Negative) Urine Bilirubin Negative (NEGATIVE) Urine Urobilinogen 0.2 (0.2) E.U./dL Ur Leukocyte Esterase Negative (NEGATIVE) Urine RBC >100/hpf H (0-5/HPF) Urine WBC 1-5/hpf (0-5/HPF) Ur Squamous Epith Cells 1-5 /hpf Urine Bacteria Moderate (10-30) H (None) Ur Culture Indicated? Cult not indicated Urine Test (Negative) Nasal Screen MRSA (PCR) (Negative) Ketones (<0.27) mmol/L Influenza A & B (PCR) (Negative) Point of Care Testing Glucose POC 161 Point of care testing: Point of Care Testing Glucose POC 161 ECG Data Attestation: I personally reviewed and interpreted this ECG as follows: Prior ECG tracings: available for review Interpretation: Sinus tachycardia, ventricular rate of 111 P are 108 QRS of 74 and QTC of 406. Patient has nonspecific ST changes. Patient is short SC interval. Patient's prior EKG from 02/03/2018 and priors appears fairly similar although some have more artifact. [facility] Narrative Medical decision making narrative: Patient comes in with complaint of feeling like she might be in DKA with all-over body aches, abdominal pain. patient's serum sugar is 588, she has a pH of 7.09 on VBG. This is consistent with her bicarb of 5. Her anion gap after a sodium that is corrected is 48, patient has had 1 full L and receiving a 2nd normal saline. Discussed with Dr. Arita insulin drip was started at point 1 units/kilos per hour, plan for bicarb 50 mEq and po tassium replacement. Dr. Arita accepts. Discharge Plan Departure Patient Disposition: Admitted As Inpatient Clinical Impression: DKA (diabetic ketoacidoses) Discharge Date/Time: 07/02/18 11:53 Interventions: ED Discharge Assessment Last Done: 07/02/18 11:53 Admit Date/Time: 07/02/18 10:52 Admit Provider: Gale Arita
[2018-07-02 09:28] LABS: HEMOLYSIS < 15 (0-50)
[2018-07-02] MEDS: ONDANSETRON 4 MG/2 ML INJ IV (09:31)
[2018-07-02] MEDS: HYDROMORPHONE 1 MG INJ 0.5 MG IV (09:31)
[2018-07-02 09:33] LABS: Alanine Aminotransferase 25 IU/L (9-52); Albumin 5.3 g/dL (3.5-5.0); Albumin Globulin Ratio 1.6 (1.0-2.8); Alkaline Phosphatase 188 U/L (38-126); Aspartate Aminotransferase 16 IU/L (14-36); BUN Creatinine Ratio 18.9 (6-22); Bilirubin Total 0.4 mg/dL (0.2-1.3); Blood Urea Nitrogen 17 mg/dL (7-17); Calcium 9.4 mg/dL (8.4-10.2); Chloride 99 mmol/L (98-107); Estimated Glomerular Filt Rate > 60.0 mL/min (>60); Globulin 3.4 g/dL (1.7-4.1); Potassium 4.8 mmol/L (3.4-5.1); Sodium 140 mmol/L (137-145); Total Protein 8.7 g/dL (6.3-8.2)
[2018-07-02 09:48] LABS: HCO3 VBG 6 mmol/L (23-28); PO2 VBG 47 mmHg (35-45); pH VBG 7.08 (7.33-7.43)
[2018-07-02 09:49] LABS: Carbon Dioxide 5 mmol/L (22-32); Glucose 588 mg/dL (70-100); Oxygen Saturation VBG 67 % (70-75); Total CO2 VBG 7 mmol/L (24-29)
[2018-07-02 09:56] LABS: Procalcitonin 0.12 ng/mL (<0.5)
[2018-07-02 10:18] LABS: Phosphorous 6.6 mg/dL (2.5-4.5)
[2018-07-02] MEDS: SODIUM BICARB 8.4% SYRINGE 50 MEQ IV (10:25)
[2018-07-02] MEDS: INSULIN REGULAR, HUMAN 100 UNIT in SODIUM CHLORIDE 0.9% 100 ML 6 ML IV (10:28)
[2018-07-02 10:37] LABS: Ketones (Beta-Hydroxybutyrate) 16.48 mmol/L (<0.27)
[2018-07-02] MEDS: KCL 20 MEQ IN NS 1,000 ML 150 MEQ IV (11:26)
[2018-07-02 12:55] LABS: Appearance Urine UA CLEAR; Bilirubin Urine UA NEGATIVE (NEGATIVE); Color Urine UA RED; Glucose Urine UA 2+ g/dL (Negative); Ketones Urine UA 3+ (NEGATIVE); Leukocyte Esterase Urine UA NEGATIVE (NEGATIVE); Nitrite Urine UA NEGATIVE (Negative); Occult Blood Urine UA 3+ (Negative); Protein Urine UA 1+ (Negative); Urobilinogen Urine UA 0.2 E.U./dL (0.2)
--- NOTE | 2018-07-02 13:01 | PC.NURSE ---
PT ADMITTED FROM ED WITH MOTHER AND SIG OTHER SURROUNDING BEDSIDE- SHE WAS ABLE TO AMBULATE TO BR AND HAVE LARGE VOID WHICH SAMPLE WAS SENT TO LAB FOR UA (ORDERED IN ED)- PT DENIES PAIN, IS TACHYCARDIC RATE 125'S SINUS RHYTHM, IVF INFUSING AT 150CC/H ALONG WITH INSULIN GTT AND BICARB INFUSION ALMOST COMPLETE- PT REPORTS BEING ON MENSES AND VISIBLE BLOOD NOTED IN URINE
[2018-07-02 13:14] LABS: Pregnancy Test Urine Negative (Negative)
[2018-07-02 13:21] LABS: Bacteria Urine Moderate (10-30); Culture Indicated Urine Cult Not Indicated; RBC Urine >100/HPF (0-5/HPF); Squamous Epithelial Cell Urine 1-5 /HPF; WBC Urine 1-5/HPF (0-5/HPF)
--- NOTE | 2018-07-02 13:27 | P.HP_ITS ---
History of Present Illness Date Patient Seen: 07/02/18 Chief complaint: DIABETIC,NKA Narrative: The Patient is a 28 y.o female with a history of Type 1 diabetes, recurrent DKA, who was well until 3 am this morning. She awoke with nausea and malaise. She went back to sleep and awoke with abdominal pain and poor feeling. She was concerned and presented to the ED for evaluation. In the ED her blood sugar was elevated over 500, VBG revealed PH 7.08 and her Bicarb was 5. She was given IV hydration and started on an insulin drip. The patient denies fever or chills, vomiting, hemetemsis, dysuria, or pyuria. She is menstrating now. She has had a cold recently, but no rashes, cough, shortness of breath, or chest p ain. She has lost 7 pounds without effort. She reports taking her insulin as prescribed. She has an catering administrative assistant that she sees every 3 months. She previously had an insulin pump but did not tolerate it. Patient is admitted at this time for treatment of DKA. Patient History Medical History Irregular menstrual cycle (Acute) Status post laser lithotripsy of ureteral calculus (Acute) Migraine headache (Chronic) Type 1 diabetes mellitus (Chronic) DKA (diabetic ketoacidoses) (Resolved) History of pyelonephritis (Resolved) Nephrolithiasis (Resolved) Surgical History History of ureter stent (Resolved) Family History Father In good health Mother Cardiac disease Social History household members: significant other and family Smoking Status: Never smoker alcohol intake: never Family & Social History Family History Father In good health Mother Cardiac disease Social History: household members significant other,family Safety & Behavioral: Feels Safe in Current Yes Environment Been Physically Hurt or No Threatened By a Person Suicidal Ideation Description None Suicide Plan Description No Plan Tobacco & Substance use: Smoking Status Never smoker alcohol intake never alcohol intake frequency holiday/special occasion Substance Use Type does not use Meds Home Medications Medication Instructions Recorded Confirmed Type Tresiba FlexTouch U-100 32 units SUB-Q DAILY #0 10/29/17 07/02/18 History insulin lispro 5 - 15 units SUBCUT TID 05/06/18 07/02/18 History Allergies Allergy/AdvReac Type Severity Reaction Status Date / Time abdalla [ABDALLA] Allergy Intermediate Hives, Verified 07/02/18 08:16 pruritus iodine [IODINE] Allergy Intermediate rash, itchy Verified 07/02/18 08:16 morphine Allergy Intermediate Difficulty Verified 07/02/18 08:16 Breathing shellfish derived Allergy Intermediate rash Verified 07/02/18 08:16 [SHELLFISH DERIVED] adhesive [ADHESIVE] Allergy Unknown tape Verified 07/02/18 08:16 latex [LATEX] Allergy Unknown Hives Verified 07/02/18 08:16 Review of Systems Review of Systems All systems reviewed & are unremarkable except as noted in HPI and below Exam Vital Signs (past 8 hours): - 07/02/18 08:16 07/02/18 09:45 07/02/18 10:00 Temperature 97.6 F Pulse Rate 124 H 120 H 123 H Respiratory Rate 22 18 16 Blood Pressure 122/81 Blood Pressure [Left Arm] 116/70 116/70 Pulse Oximetry 100 100 100 07/02/18 10:15 07/02/18 10:45 07/02/18 11:08 Temperature Pulse Rate 121 H 118 H 114 H Respiratory Rate 18 118 H 18 Blood Pressure Blood Pressure [Left Arm] 122/71 118/69 118/69 Pulse Oximetry 100 100 100 07/02/18 11:15 07/02/18 12:58 Temperature 99.7 F H Pulse Rate 117 H 121 H Respiratory Rate 17 16 Blood Pressure 104/71 Blood Pressure [Left Arm] 118/69 Pulse Oximetry 100 97 Oxygen Delivery Method Room Air Oxygen Flow Rate 0 Narrative Exam Narrative: Pleasant female, ill appearing HEENT: NC/AT, EOMI, Neck supple Lungs: clear to auscultation CV: tachycardic nl Sl S2 2/6 KENNY ABD: Soft/ nontender/ non distended, no hepatosplenomegaly Ext: no edema Neuro: Cranial Nerves 2-12 intact, Motor 5+/5+ upper and lower extremities, sensation grossly intact, reflexes equal skin: no lesions Objective Labs Result Diagrams: 07/02/18 09:12 07/02/18 09:12 Labs: Laboratory Results - last 24 hr 07/02/18 07/02/18 07/02/18 08:35 09:12 09:12 WBC 9.4 RBC 4.78 Hgb 15.0 Hct 45.0 MCV 94.1 MCH 31.3 MCHC 33.2 RDW 13.8 Plt Count 424 H Neut % (Auto) 77.8 H Lymph % (Auto) 17.4 L Maury % (Auto) 3.9 Eos % (Auto) 0.1 L Baso % (Auto) 0.8 Neut # (Auto) 7300 H Lymph # (Auto) 1600 Maury # (Auto) 400 Eos # (Auto) 0 Baso # (Auto) 100 VBG pH VBG pCO2 VBG pO2 VBG HCO3 VBG Total CO2 VBG O2 Saturation VBG Base Excess Sodium Potassium Chloride Carbon Dioxide BUN Creatinine Estimated GFR BUN/Creatinine Ratio Glucose Lactate Calcium Phosphorus Total Bilirubin AST ALT Alkaline Phosphatase Total Protein Albumin Globulin Albumin/Globulin Ratio Procalcitonin 0.12 Urine Color Urine Appearance Urine pH Ur Specific Taylor Urine Protein Urine Glucose (UA) Urine Ketones Urine Occult Blood Urine Nitrate Urine Bilirubin Urine Urobilinogen Ur Leukocyte Esterase Urine RBC Urine WBC Ur Squamous Epith Cells Urine Bacteria Ur Culture Indicated? Urine Test Ketones Influenza A & B (PCR) Negative 07/02/18 07/02/18 07/02/18 09:12 09:12 09:12 WBC RBC Hgb Hct MCV MCH MCHC RDW Plt Count Neut % (Auto) Lymph % (Auto) Maury % (Auto) Eos % (Auto) Baso % (Auto) Neut # (Auto) Lymph # (Auto) Maury # (Auto) Eos # (Auto) Baso # (Auto) VBG pH VBG pCO2 VBG pO2 VBG HCO3 VBG Total CO2 VBG O2 Saturation VBG Base Excess Sodium 140 Potassium 4.8 Chloride 99 Carbon Dioxide 5 L* BUN 17 Creatinine 0.90 Estimated GFR > 60.0 BUN/Creatinine Ratio 18.9 Glucose 588 H* Lactate 1.0 Calcium 9.4 Phosphorus 6.6 H Total Bilirubin 0.4 AST 16 ALT 25 Alkaline Phosphatase 188 H Total Protein 8.7 H Albumin 5.3 H Globulin 3.4 Albumin/Globulin Ratio 1.6 Procalcitonin Urine Color Urine Appearance Urine pH Ur Specific Taylor Urine Protein Urine Glucose (UA) Urine Ketones Urine Occult Blood Urine Nitrate Urine Bilirubin Urine Urobilinogen Ur Leukocyte Esterase Urine RBC Urine WBC Ur Squamous Epith Cells Urine Bacteria Ur Culture Indicated? Urine Test Ketones 16.48 H Influenza A & B (PCR) 07/02/18 07/02/18 07/02/18 09:26 12:20 12:36 WBC RBC Hgb Hct MCV MCH MCHC RDW Plt Count Neut % (Auto) Lymph % (Auto) Maury % (Auto) Eos % (Auto) Baso % (Auto) Neut # (Auto) Lymph # (Auto) Maury # (Auto) Eos # (Auto) Baso # (Auto) VBG pH 7.08 L* VBG pCO2 20.0 L VBG pO2 47 H VBG HCO3 6 L VBG Total CO2 7 L VBG O2 Saturation 67 L VBG Base Excess -24.0 L Sodium Potassium Chloride Carbon Dioxide BUN Creatinine Estimated GFR BUN/Creatinine Ratio Glucose Lactate Calcium Phosphorus Total Bilirubin AST ALT Alkaline Phosphatase Total Protein Albumin Globulin Albumin/Globulin Ratio Procalcitonin Urine Color Red Urine Appearance Clear Urine pH 5.0 Ur Specific Taylor 1.020 Urine Protein 1+ H Urine Glucose (UA) 2+ H Urine Ketones 3+ H Urine Occult Blood 3+ H Urine Nitrate Negative Urine Bilirubin Negative Urine Urobilinogen 0.2 Ur Leukocyte Esterase Negative Urine RBC >100/hpf H Urine WBC 1-5/hpf Ur Squamous Epith Cells 1-5 /hpf Urine Bacteria Moderate (10-30) H Ur Culture Indicated? Cult not indicated Urine Test Negative Ketones Influenza A & B (PCR) Assessment & Plan (1) DKA (diabetic ketoacidoses): Problem details: DKA, present on admission Will continue IV hydration, Insulin Drip, recheck electrolytes, replace po tassium Will start D5 1/2 NS once blood sugars are less than 200. Goal is to continue insulin until AG is closed. Qualifiers: Diabetes mellitus complication detail: Diabetes mellitus type: Current visit: Yes Status: Acute (2) Diabetes mellitus type I: Problem details: Will resume usual insulin once she is no longer in DKA Qualifiers: Diabetes mellitus complication status: with ketoacidosis Diabetes mellitus complication detail: Diabetic retinopathy severity: Proliferative retinopathy type: Diabetes mellitus macular edema: Laterality: Chronic kidney disease stage: Current visit: No Status: Acute
[2018-07-02] MEDS: SODIUM CHLORIDE 0.9% 1,000 ML 150 ML IV (14:05)
[2018-07-02 14:23] LABS: BUN Creatinine Ratio 18.8 (6-22); Blood Urea Nitrogen 15 mg/dL (7-17); Calcium 8.2 mg/dL (8.4-10.2); Chloride 115 mmol/L (98-107); Estimated Glomerular Filt Rate > 60.0 mL/min (>60); Glucose 230 mg/dL (70-100); HEMOLYSIS < 15 (0-50); Potassium 3.7 mmol/L (3.4-5.1); Sodium 146 mmol/L (137-145)
[2018-07-02 14:36] LABS: Carbon Dioxide 9 mmol/L (22-32)
[2018-07-02] MEDS: POTASSIUM CHLORIDE 40 MEQ in SODIUM CHLORIDE 0.9% 500 ML 130 ML IV (15:35)
[2018-07-02] MEDS: DEXTROSE 5%-0.9% NS 1,000 ML 150 ML IV (15:37)
[2018-07-02] MEDS: INSULIN DEGLUDEC 32 EACH SUBCUT (15:43)
[2018-07-02 18:32] LABS: BUN Creatinine Ratio 17.1 (6-22); Blood Urea Nitrogen 12 mg/dL (7-17); Calcium 7.8 mg/dL (8.4-10.2); Carbon Dioxide 16 mmol/L (22-32); Chloride 113 mmol/L (98-107); Estimated Glomerular Filt Rate > 60.0 mL/min (>60); Glucose 150 mg/dL (70-100); HEMOLYSIS < 15 (0-50); Potassium 4.2 mmol/L (3.4-5.1); Sodium 141 mmol/L (137-145)
[2018-07-02] MEDS: SODIUM CHLORIDE 0.45% 1,000 ML 75 ML IV (19:09)
--- NOTE | 2018-07-02 19:49 | PC.NURSE ---
Addendum entered by Mariela Mills R.N. 07/02/18 21:22: 2100 -Pt up, ambulating to the bathroom. Pt currently on menses, pad change. Denies pain. Denies nausea. Taking clear liquids. BG 199. Original Note: 1899 - BG 179, insulin gtt stopped. IVF changed to 1/2NS @ 75cc/hr. K-rider infusing at 100cc/hr. Titrated down at 1800 r/t IV site discomfort. Broth and yasiro provided. 1819 - Reviewed Lab results with Dr. Arita. Verbal orders obtained.
[2018-07-03 00:51] VITALS: BP 108/51; PULSE 89; RESP 18; TEMP 36.8; O2SAT 98
[2018-07-03 04:51] VITALS: BP 102/58; PULSE 81; RESP 12; TEMP 36.7; O2SAT 98
[2018-07-03 05:29] LABS: BUN Creatinine Ratio 16.7 (6-22); Blood Urea Nitrogen 10 mg/dL (7-17); Calcium 8.1 mg/dL (8.4-10.2); Carbon Dioxide 18 mmol/L (22-32); Chloride 112 mmol/L (98-107); Estimated Glomerular Filt Rate > 60.0 mL/min (>60); Glucose 71 mg/dL (70-100); HEMOLYSIS < 15 (0-50); Potassium 3.3 mmol/L (3.4-5.1); Sodium 138 mmol/L (137-145)
--- NOTE | 2018-07-03 06:03 | PC.NURSE ---
Glucose 71 by lab, denies symptoms, 8oz of juice given.
[2018-07-03 07:44] VITALS: BP 94/46; PULSE 83; RESP 13; TEMP 36.4; O2SAT 99
[2018-07-03] MEDS: POTASSIUM CHLORIDE 40 MEQ in SODIUM CHLORIDE 0.9% 500 ML 130 ML IV (09:38)
[2018-07-03] MEDS: SODIUM CHLORIDE 0.45% 1,000 ML 75 ML IV (09:39)
[2018-07-03 12:00] VITALS: BP 89/52; PULSE 85; RESP 16; TEMP 36.6; O2SAT 98
[2018-07-03] MEDS: INSULIN DEGLUDEC 32 EACH SUBCUT (13:38)
--- NOTE | 2018-07-03 15:44 | P.DS_ITS ---
History of Present Illness Date Patient Seen: 07/02/18 Chief complaint: DIABETIC,NKA Narrative: Written by Dr. Arita: The Patient is a 28 y.o female with a history of Type 1 diabetes, recurrent DKA, who was well until 3 am this morning. She awoke with nausea and malaise. She went back to sleep and awoke with abdominal pain and poor feeling. She was concerned and presented to the ED for evaluation. In the ED her blood sugar was elevated over 500, VBG revealed PH 7.08 and her Bicarb was 5. She was given IV hydration and started on an insulin drip. The patient denies fever or chills, vomiting, hemetemsis, dysuria, or pyuria. She is menstrating now. She has had a cold recently, but no rashes, cough, shortness of breath, or chest pain. She has lost 7 pounds without effort. She reports taking her insulin as prescribed. She has an research agricultural engineer that she sees every 3 months. She previously had an insulin pump but did not tolerate it. Patient is admitted at this time for treatment of DKA. Discharge Providers Date of admission: 07/02/18 10:52 Discharge Date: 07/03/18 Discharge provider: Susy Vargas DO Summary Discharge Diagnosis: 1. Acute diabetic ketoacidosis, present on admission. Resolved. 2. Acute anion gap metabolic acidosis, present on admission. Resolved. 3. Diabetes mellitus type 1, chronic, present on admission. Active. 4. Allergies, possible seasonal versus environmental, chronic, present on admission. Stable. 5. Frequent headaches, not present on admit. 6. History of nephrolithiasis. Hospital Course: Sarabjit Jimenes is a 28-year-old female with a past medical history significant for nephrolithiasis and diabetes mellitus type 1 who presented with abdominal pain and was admitted for DKA. 1. Acute diabetic ketoacidosis, present on admission. Resolved. -Unclear inciting event but possibly allergies versus recent URI 2 weeks ago. Last 2 admissions for DKA inciting event was vulvar abscess and yeast infection both of which are not present on this admission. -Patient started on DKA protocol including insulin gtt, IV fluids, and electrolyte repletion. Transitioned to long-acting insulin and correctional scale insulin. Insulin gtt and IVF stopped. -Monitored electrolytes and anion gap until closed. Initial anion gap 36. Repleted electrolytes as needed. -Urinalysis grossly normal and culture not indicated. 2. Acute anion gap metabolic acidosis, present on admission. Resolved. -VBG demonstrated:pH 7.08, pCO2 20, PO2 47, HC03 6. -Continued to treat DKA as above. 3. Diabetes mellitus type 1, chronic, present on admission. Active. -Hemoglobin A1c 14% on 07/03/2018 reflective of significant need for tighter glycemic control. -Titrated off insulin drip and restarted home Tresiba 32 units daily, lispro 3 times daily with meals based on correctional scale, and low-dose correctional scale lispro. -Recommended close follow-up with outpatient with her research agricultural engineer Leonidas COLES and discuss possible ways to treat DKA outpatient and when to go to the hospital. 4. Allergies, possible seasonal versus environmental, chronic, present on admission. Stable. -Started loratadine 10 mg daily. 5. Frequent headaches, not present on admit. 6. History of nephrolithiasis. Exam Vital Signs (past 8 hours): - 07/03/18 07:44 07/03/18 12:00 Temperature 97.5 F L 97.8 F Pulse Rate 83 85 Respiratory Rate 13 16 Blood Pressure 94/46 L 89/52 L Pulse Oximetry 99 98 Oxygen Delivery Method Room Air Oxygen Flow Rate 0 Narrative Exam Narrative: General: Young female lying in bed and in no acute distress, flushed but appears to be feeling better, well-developed, well-nourished, appropriately interactive. HEENT: Normocephalic, atraumatic. External ears without defect. Pupils equal, round, and reactive to light. Anicteric sclerae, moist conjunctivae, and no lid lag. Bilateral upper eyelid swelling without conjunctival injection. Neck: Supple with full range of motion. No lymphadenopathy or thyromegaly. Cardiovascular: Regular rhythm and rate without murmurs, rubs, or gallops appreciated. Reproducible chest pain with palpation. Pulmonary: Clear to auscultation bilaterally without crackles, wheezes, or rhonchi. Normal respiratory effort with no use of accessory muscles. Abdomen: Soft, bowel sounds present, no abdominal tenderness, nondistended. No hepatosplenomegaly or masses appreciated. No guarding. Extremities: No clubbing, cyanosis, or edema. Skin: Normal temperature, turgor, and texture. Neurological: Cranial nerves grossly intact. Psychiatric: Normal mood and affect. Alert and oriented to person, place, and time. Objective Labs Result Diagrams: 07/02/18 09:12 07/03/18 16:10 Labs: Laboratory Results - last 24 hr 07/02/18 07/03/18 18:02 04:37 Sodium 141 138 Potassium 4.2 3.3 L Chloride 113 H 112 H Carbon Dioxide 16 L 18 L BUN 12 10 Creatinine 0.70 0.60 Estimated GFR > 60.0 > 60.0 BUN/Creatinine Ratio 17.1 16.7 Glucose 150 H 71 Calcium 7.8 L 8.1 L Discharge Plan Discharge Plan Patient Disposition: Home Discharge comment: You are being discharged home. Please follow up with Leonidas COLES at your next scheduled appointment. You may want to discuss treatment options if your blood sugars are elevated to potentially keep you out of the hospital. Please start taking Claritin 10 mg daily for allergies. This is not something you can take for symptoms and has to be taken every day to have an affect. You may ice your eyes for swelling but no more than 20 min at a time. It is unclear what caused your DKA this time. Discharge Med Rec/Prescriptions Prescriptions: New loratadine 10 mg tablet 10 mg PO DAILY Qty: 30 RF: 0 Continued Tresiba FlexTouch U-100 100 unit/mL (3 mL) Insulin Pen 32 units Sub-Q DAILY Qty: 0 RF: 0 insulin lispro 100 unit/mL insulin pen 5 - 15 units subcut TID RF: 0 Follow up/Referrals: Leonidas Oreilly ARNP [Non-Staff] - 2 Weeks Provider Discharge Instructions Diet: Carb-consistent/Diabetic Visit Report/Discharge Packet Instructions: Allergic Rhinitis, DI for Diabetic Ketoacidosis Visit Report Forms: Stroke Signs & Symptoms Discharge Data Attending Provider: Gale Arita Admit Date/Time: 07/02/18 10:52
--- NOTE | 2018-07-03 15:48 | PC.NURSE ---
Addendum entered by Mariela Mills R.N. 07/03/18 18:08: 1800 - Discharge information and education provided. Discussed pt follow up with track watchman. Encourage pt to take Health Care Summary to follow up appointment. Encouraged pt to increase bg monitoring, and journal results. Pt denies questions. IV dc'd. Pt able to dress independently. Declines to d/c via wc. 1108 -Dr. Vargas notified of lab result. She discussed with pt DM management, including potential side effects of continued uncontrolled blood glucose. Pt mother at bedside. Pt became tearful. Verbalized understanding. BG results of lab draw covered with S/S coverage per MD order. Original Note: 0613 - Dr. Vargas into see pt. Discussing possible discharge. Ice pack provided for puffy eyes. Pt requesting left hand IV d/c'd r/t discomfort. MD to right order for lab work and allergy meds. Pt denies further need at this time. Monitor.
[2018-07-03] MEDS: LORATADINE 10 MG TABLET PO (16:25)
[2018-07-03 16:34] LABS: BUN Creatinine Ratio 8.8 (6-22); Blood Urea Nitrogen 7 mg/dL (7-17); Calcium 8.2 mg/dL (8.4-10.2); Carbon Dioxide 23 mmol/L (22-32); Chloride 108 mmol/L (98-107); Estimated Glomerular Filt Rate > 60.0 mL/min (>60); Glucose 247 mg/dL (70-100); HEMOLYSIS < 15 (0-50); Magnesium 1.6 mg/dL (1.6-2.3); Potassium 3.7 mmol/L (3.4-5.1); Sodium 137 mmol/L (137-145)
[2018-07-03 16:44] LABS: Hemoglobin A1C% w Est Avg Glu > 14.0 % (4.0-6.0)
[2018-07-03] MEDS: INSULIN ASPART 100 UNIT/ML INSULN PEN SUBCUT (17:42)
== END 2018-07-03 18:07 | disposition home or self-care (01) | DRG 639 ==
LOC: ED 10:26 → ICU 10:53
PROVIDERS: Internal Medicine; Admitting Provider Internal Medicine; Emergency Provider Emergency Medicine; Visit Provider Internal Medicine
DX: E10.10 Type 1 diabetes mellitus with ketoacidosis without coma (principal); Z79.4 Long term (current) use of insulin; R00.0 Tachycardia, unspecified
CPT/HCPCS: 36415; 80048; 80053; 81001; 81025; 82009; 82805; 82962; 83036; 83605; 83735; 84100; 84145; 85025; 87400; 87797; 93005; 96361; 96365; 96366; 96375; 99283; 99284; J1170; J2405; J3480; J7050

== ENCOUNTER 2018-09-27 07:26 | Inpatient (IN) | payer MEDICAID, SELFPAY ==
[2018-07-02 12:39] VITALS: BMI 20.7
[2018-09-27] VITALS (7 sets, daily range): BP systolic 114–148; BP diastolic 58–94; PULSE 106–133; RESP 13–24; TEMP 36.8–37.1; O2SAT 97–100; BMI 20.7; BMI 20.2
[2018-09-27] MEDS: SODIUM CHLORIDE 0.9% 1,000 ML 1000 ML IV (08:11)
[2018-09-27] MEDS: ONDANSETRON 4 MG/2 ML INJ IV ×2 (08:13→14:46)
[2018-09-27] MEDS: HYDROMORPHONE 0.5 MG INJ IV (08:15)
[2018-09-27 08:17] LABS: PCO2 VBG 11.7 mmHg (45-50); pH VBG 7.01 (7.33-7.43)
[2018-09-27 08:18] LABS: HCO3 VBG 3 mmol/L (23-28); PO2 VBG 74 mmHg (35-45); Total CO2 VBG < 5 mmol/L (24-29)
[2018-09-27 08:19] LABS: Oxygen Saturation VBG 86 % (70-75)
[2018-09-27 08:22] LABS: Add Manual Diff / Slide Review NO; Basophils Absolute Auto 100 /uL (0-100); Basophils Percent Auto 0.8 % (0-2); Eosinophils Absolute Auto 0 /uL (0-450); Eosinophils Percent Auto 0.1 % (2-4); Hematocrit 50.9 % (36-46); Hemoglobin 16.7 g/dL (12.0-16.0); Lymphocytes Absolute Auto 3500 /uL (1100-4500); Lymphocytes Percent Auto 23.1 % (25-40); Mean Corpuscular HGB Conc 32.7 % (30-36); Mean Corpuscular Hemoglobin 31.1 PG (26-34); Mean Corpuscular Volume 95.1 fL (80-100); Monocytes Absolute Auto 1000 /uL (0-900); Monocytes Percent Auto 6.8 % (3-14); Neutrophils Absolute Auto 10400 /uL (1500-7000); Neutrophils Percent Auto 69.2 % (50-75); Platelet Count 388 X10^3/uL (150-400); Red Blood Cell Count 5.36 X10^6/uL (4.0-5.2); Red Cell Distribution Width 12.7 % (11.6-14.8)
[2018-09-27 08:24] LABS: Alanine Aminotransferase 14 IU/L (9-52); Albumin Globulin Ratio 1.4 (1.0-2.8); Alkaline Phosphatase 158 U/L (38-126); Aspartate Aminotransferase 15 IU/L (14-36); Bilirubin Total 0.6 mg/dL (0.2-1.3); Blood Urea Nitrogen 15 mg/dL (7-17); Chloride 107 mmol/L (98-107); Estimated Glomerular Filt Rate > 60.0 mL/min (>60); Globulin 3.5 g/dL (1.7-4.1); Glucose 462 mg/dL (70-100); HEMOLYSIS 19 (0-50); Lipase 130 U/L (23-300); Potassium 4.1 mmol/L (3.4-5.1); Sodium 141 mmol/L (137-145); Total Protein 8.5 g/dL (6.3-8.2)
--- NOTE | 2018-09-27 08:26 | DI.RAD.S_ITS ---
1PROCEDURE: XR CHEST 1V INDICATIONS: DKA TECHNIQUE: One view of the chest was acquired. COMPARISON: [facility], CR, XR CHEST 1V, 04/15/2018, 23:50. [facility], CR, XR CHEST 2V, 02/03/2018, 21:18. [facility], CR, XR CHEST 1V, 05/07/2018, 14:30. FINDINGS: Surgical changes and devices: None. Lungs and pleura: An incomplete inspiratory result is noted, causing a crowded appearance to the lung markings. No focal infiltrates are seen. No pneumothorax or significant pleural effusions are seen. Mediastinum: Mediastinal contours appear normal. Heart size is normal. Bones and chest wall: No suspicious bony lesions. Overlying soft tissues appear unremarkable. IMPRESSION: No focal infiltrate is seen. Dictated by: Remi Polanco M.D. on 09/27/2018 at 8:00 Approved by: Remi Polanco M.D. on 09/27/2018 at 8:00
--- NOTE | 2018-09-27 08:31 | ED_ITS ---
HPI - Nausea/Vomiting/Diarrhea General Chief complaint: Diabetic Problem Stated complaint: States possible NDKA Time Seen by Provider: 09/27/18 07:30 Source: patient and family Mode of arrival: ambulatory Limitations: no limitations History of Present Illness HPI Narrative: 28-year-old female nonsmoker and known type 1 diabetic with frequent DKA presents with 3-4 days of increasing nausea, vomiting, generalized body pain and weakness. This is a typical presentation for her DKA. She states she recently started a new control and thought the symptoms were related to and only today question whether not it may be DKA. She denies any change in her diet or diabetic regimen. She denies any fever or chills nor runny nose, sore throat or cough. MD complaint: nausea and vomiting Onset (ago): day(s) Description of Diarrhea: none Associated Abdominal Pain: Yes Location of pain: diffuse Quality: cramping Relieving factors: none Exacerbating factors: none Associated symptoms: loss of appetite, malaise, nausea/vomiting and fatigue Related Data Home Medications Medication Instructions Recorded Confirmed Tresiba FlexTouch U-100 32 units SUB-Q DAILY #0 10/29/17 07/02/18 insulin lispro 5 - 15 units SUBCUT TID 05/06/18 07/02/18 Previous Rx's Medication Instructions Recorded loratadine 10 mg PO DAILY #30 tab 07/03/18 Allergies Allergy/AdvReac Type Severity Reaction Status Date / Time abdalla [ABDALLA] Allergy Intermediate Hives, Verified 09/27/18 08:12 pruritus iodine [IODINE] Allergy Intermediate rash, itchy Verified 09/27/18 08:12 morphine Allergy Intermediate Difficulty Verified 09/27/18 08:12 Breathing shellfish derived Allergy Intermediate rash Verified 09/27/18 08:12 [SHELLFISH DERIVED] adhesive [ADHESIVE] Allergy Unknown tape Verified 09/27/18 08:12 latex [LATEX] Allergy Unknown Hives Verified 09/27/18 08:12 Review of Systems Constitutional Denies chills, Denies fever(s), Reports lethargy and Reports weakness Eyes Denies change in vision, Denies eye discharge, Denies irritation and Denies loss of vision ENT Ears, Nose, Mouth, and Throat: Denies change in voice, Denies neck pain and Denies sore throat Cardiovascular Denies chest pain, Denies irregular heart rhythm, Denies lightheadedness, Denies palpitations, Denies dyspnea, Denies dyspnea on exertion and Denies orthopnea Respiratory Denies cough, Denies dyspnea, Denies dyspnea on exertion and Denies wheezing Gastrointestinal Gastrointestinal: Reports abdominal pain, Denies change in bowel habits, Denies diarrhea, Reports nausea and Reports vomiting Genitourinary Denies hematuria, Denies flank pain, Denies urinary incontinence and Denies urinary urgency Musculoskeletal Denies neck pain Integumentary/Breasts Denies pruritus, Denies erythema, Denies rash and Denies wounds Neurologic Denies confusion, Denies loss of vision and Reports weakness Psychiatric Denies anxiety, Denies confusion, Denies depression, Denies homicidal ideation and Denies suicidal ideation Endocrine Denies palpitations Hematologic/Lymphatic Denies easy bruising Allergic/Immunologic Denies wheezing [facility] Medical History Irregular menstrual cycle (Acute) Migraine headache (Chronic) Type 1 diabetes mellitus (Chronic) DKA (diabetic ketoacidoses) (Resolved) History of pyelonephritis (Resolved) Nephrolithiasis (Resolved) Surgical History Status post laser lithotripsy of ureteral calculus (Acute) History of ureter stent (Resolved) Family History Father In good health Mother Cardiac disease Social History household members: significant other and family Smoking Status: Never smoker alcohol intake: never Family History Father In good health Mother Cardiac disease Social History household members: significant other and family Smoking Status: Never smoker alcohol intake: never Exam Narrative Exam Narrative: GENERAL: 28-year-old female ill appearing, obviously uncomfortable. HEAD: Atraumatic. Normocephalic. No temporal or scalp tenderness. EYES: Pupils equal round and reactive. Extraocular motions intact. No scleral icterus. No injection or drainage. ENT: Dry mucous membranes Nose without bleeding, purulent drainage or septal hematoma. Throat without erythema, tonsillar hypertrophy or exudate. Uvula midline. Airway patent. NECK: Trachea midline. No JVD or lymphadenopathy. Supple, nontender, no meningeal signs. CARDIOVASCULAR: Regular rate and rhythm without murmurs, gallops, or rubs. RESPIRATORY: Clear to auscultation. Breath sounds equal bilaterally. No wheezes, rales, or rhonchi. GASTROINTESTINAL: Abdomen soft, non-tender, nondistended. No hepato- splenomegaly, or palpable masses. No guarding. EXTREMITIES: No clubbing, cyanosis, or edema. No joint tenderness, effusion, or edema noted. BACK: Nontender without deformity or crepitance. No flank tenderness. NEURO: AOx3. SKIN: No rash or erythema. Initial Vital Signs Initial Vital Signs: Vital Signs Temperature 98.7 F 09/27/18 07:30 Pulse Rate 133 H 09/27/18 07:30 Respiratory Rate 24 09/27/18 07:30 Blood Pressure 135/91 H 09/27/18 07:30 Pulse Oximetry 100 09/27/18 07:30 Course Orders Ordered: ED Orders 09/27/18 07:46 EKG-12 Lead Stat 09/27/18 07:48 VBG [Venous Blood Gas] Stat 09/27/18 07:50 Complete Blood Count AUTO DIFF Stat Comprehensive Metabolic Panel Stat Lipase Stat 09/27/18 08:26 XR chest 1V Stat Sodium Chloride (Normal Saline 0.9%) 1,000 mls @ 1,000 mls/hr IV BOLUS ONE Stop: 09/27/18 08:54 Last Admin: 09/27/18 08:11 Dose: 1,000 mls/hr Insulin Human Regular 100 unit (/ Sodium Chloride) 100 mls @ 6 mls/hr IV TITRATE BLAISE; Protocol Ondansetron HCl (Zofran) 4 mg IV Q4HR PRN PRN Reason: Nausea And Vomiting Last Admin: 09/27/18 08:13 Dose: 4 mg Discontinued Medications Hydromorphone HCl (Dilaudid) 0.5 mg IV NOW ONE Stop: 09/27/18 07:56 Last Admin: 09/27/18 08:15 Dose: 0.5 mg Consultations Consultation #1: call to hospitalist Time: 08:35 Vital Signs - 8 hr 09/27/18 07:30 09/27/18 08:15 Temperature 98.7 F 98.3 F Pulse Rate 133 H Respiratory Rate 24 Blood Pressure 135/91 H Pulse Oximetry 100 MDM - Nausea/Vomiting/Diarrhea Lab Data Result diagrams: 09/27/18 07:50 09/27/18 07:50 Lab Results 09/27/18 09/27/18 09/27/18 Range/Units 07:48 07:50 07:50 WBC 15.0 H (4.5-11.0) X10^3/uL RBC 5.36 H (4.0-5.2) X10^6/uL Hgb 16.7 H (12.0-16.0) g/dL Hct 50.9 H (36-46) % MCV 95.1 (80-100) fL MCH 31.1 (26-34) PG MCHC 32.7 (30-36) % RDW 12.7 (11.6-14.8) % Plt Count 388 (150-400) X10^3/uL Neut % (Auto) 69.2 (50-75) % Lymph % (Auto) 23.1 L (25-40) % [place] % (Auto) 6.8 (3-14) % Eos % (Auto) 0.1 L (2-4) % Baso % (Auto) 0.8 (0-2) % Neut # (Auto) 38087 H (6369-8126) /uL Lymph # (Auto) 3500 (5266-3525) /uL [place] # (Auto) 1000 H (0-900) /uL Eos # (Auto) 0 (0-450) /uL Baso # (Auto) 100 (0-100) /uL VBG pH 7.01 L* (7.33-7.43) VBG pCO2 11.7 L (45-50) mmHg VBG pO2 74 H (35-45) mmHg VBG HCO3 3 L (23-28) mmol/L VBG Total CO2 < 5 L (24-29) mmol/L VBG O2 Saturation 86 H (70-75) % VBG Base Excess -28.0 L (0-4) mmol/L Sodium 141 (137-145) mmol/L Potassium 4.1 (3.4-5.1) mmol/L Chloride 107 (98-107) mmol/L Carbon Dioxide < 5 L* (22-32) mmol/L BUN 15 (7-17) mg/dL Creatinine 1.00 (0.52-1.04) mg/dL Estimated GFR > 60.0 (>60) mL/min BUN/Creatinine Ratio 15.0 (6-22) Glucose 462 H (70-100) mg/dL Calcium 9.0 (8.4-10.2) mg/dL Total Bilirubin 0.6 (0.2-1.3) mg/dL AST 15 (14-36) IU/L ALT 14 (9-52) IU/L Alkaline Phosphatase 158 H (38-126) U/L Total Protein 8.5 H (6.3-8.2) g/dL Albumin 5.0 (3.5-5.0) g/dL Globulin 3.5 (1.7-4.1) g/dL Albumin/Globulin Ratio 1.4 (1.0-2.8) Lipase 130 (23-300) U/L Point of Care Testing Glucose POC 361 Imaging Data Chest x-ray: Attestation: I personally reviewed and interpreted this imaging study as follows: My impression: NAP MDM Narrative Medical decision making narrative: Known type 1 Diabetic presents with weakness, dehydration, N/V. pH 7.007 with CO2 of 2.9. No obvious trigger such as infection, missed doses of insulin, or dietary change Discharge Plan Departure Patient Disposition: Admitted As Inpatient Clinical Impression: DKA (diabetic ketoacidoses)
[2018-09-27 08:36] LABS: Carbon Dioxide < 5 mmol/L (22-32)
[2018-09-27] MEDS: INSULIN REGULAR, HUMAN 100 UNIT in SODIUM CHLORIDE 0.9% 100 ML 6 ML IV ×2 (08:41→09:40)
--- NOTE | 2018-09-27 09:12 | PM.HP.1 ---
History of Present Illness Date Patient Seen: 09/27/18 Time Patient Seen: 09:12 Chief complaint: States possible NDKA Narrative: This is a 28-year-old female with type 1 diabetes since the age of 6 who presents with recurrent diabetic ketoacidosis. She has had 4 days of nausea and nearly no oral intake. She has not been vomiting and does not have any urinary tract infection symptoms, pneumonia symptoms, abdominal pain. She relates the nausea to a recent change in her control, starting on a progesterone only tablet last week. Her blood sugars have been in the 200s and she has continued on her 32 units of Tresiba long-acting insulin along with her lispro sliding scale. She explains that she was tried on the progesterone control pill because of concerns that a traditional estrogen/progesterone product might destabilize her diabetes. She had previously been on Implanon. She has lately been having excessive bleeding with her menstrual periods occurring twice a month. She has never been . In addition to prior DKA admission she has been treated for a left kidney infection and ?fungus ball in her kidney.? This was in her early 20s. She was diagnosed with diabetes at the age of 6. She goes to [facility]. On admission her venous blood gas has a pH of 7.007 with a bicarb of 2.9 and an unmeasurable CO2 level. Her anion gap is 30. Patient History Medical History Irregular menstrual cycle (Acute) Migraine headache (Chronic) Type 1 diabetes mellitus (Chronic) DKA (diabetic ketoacidoses) (Resolved) History of pyelonephritis (Resolved) Nephrolithiasis (Resolved) Surgical History Status post laser lithotripsy of ureteral calculus (Acute) History of ureter stent (Resolved) Family History Father In good health Mother Cardiac disease Social History household members: significant other and family Smoking Status: Never smoker alcohol intake: never Family & Social History Family History Father In good health Mother Cardiac disease Social History: household members significant other,family Safety & Behavioral: Feels Safe in Current Yes Environment Been Physically Hurt or No Threatened By a Person Tobacco & Substance use: Smoking Status Never smoker alcohol intake never alcohol intake frequency holiday/special occasion Substance Use Type does not use Meds Home Medications Medication Instructions Recorded Confirmed Type Tresiba FlexTouch U-100 32 units SUB-Q DAILY #0 10/29/17 07/02/18 History insulin lispro 5 - 15 units SUBCUT TID 05/06/18 07/02/18 History loratadine 10 mg PO DAILY #30 tab 07/03/18 Rx Allergies Allergy/AdvReac Type Severity Reaction Status Date / Time abdalla [ABDALLA] Allergy Intermediate Hives, Verified 09/27/18 08:12 pruritus iodine [IODINE] Allergy Intermediate rash, itchy Verified 09/27/18 08:12 morphine Allergy Intermediate Difficulty Verified 09/27/18 08:12 Breathing shellfish derived Allergy Intermediate rash Verified 09/27/18 08:12 [SHELLFISH DERIVED] adhesive [ADHESIVE] Allergy Unknown tape Verified 09/27/18 08:12 latex [LATEX] Allergy Unknown Hives Verified 09/27/18 08:12 Review of Systems Review of Systems Positive for nausea/dry retching/no oral intake for 4 days. Negative for abdominal pain, chest pain, coughing, fevers, chills, sweats, bleeding, rash, dysuria, hematuria, joint pain, seizures, headaches, trouble talking, trouble walking, hearing loss. All systems reviewed & are unremarkable except as noted in HPI and below Exam Vital Signs (past 8 hours): - 09/27/18 07:30 09/27/18 08:15 09/27/18 08:51 Temperature 98.7 F 98.3 F Pulse Rate 133 H 130 H Respiratory Rate 24 20 Blood Pressure 135/91 H Blood Pressure [Right Arm] 135/90 Pulse Oximetry 100 100 Oxygen Delivery Method Room Air Narrative Exam Narrative: She is alert and oriented x3, in no apparent distress, she has bright red hair and very fair skin. Pupils are equally round and reactive to light and accommodation. Extraocular muscles are intact. Sclerae are pink and nonicteric. No lymph nodes are felt head, neck, supraclavicular area. There is no thyromegaly. Throat looks normal. JVD is less than 6 cm. No carotid bruits are heard. Heart is tachycardic, regular rhythm without murmur. Lungs are clear to auscultation bilaterally. Abdomen is soft, bowel sounds positive, nontender, no organomegaly. Extremities have no ankle edema. Skin no rash or jaundice. She is very light skinned. Neuro exam. Cranial nerves 2-12 tested intact. DTR are symmetric. Motor function is 5/5 throughout. There is no tremor. Objective Labs Result Diagrams: 09/27/18 07:50 09/27/18 07:50 Labs: Laboratory Results - last 24 hr 09/27/18 09/27/18 09/27/18 07:48 07:50 07:50 WBC 15.0 H RBC 5.36 H Hgb 16.7 H Hct 50.9 H MCV 95.1 MCH 31.1 MCHC 32.7 RDW 12.7 Plt Count 388 Neut % (Auto) 69.2 Lymph % (Auto) 23.1 L [place] % (Auto) 6.8 Eos % (Auto) 0.1 L Baso % (Auto) 0.8 Neut # (Auto) 82476 H Lymph # (Auto) 3500 [place] # (Auto) 1000 H Eos # (Auto) 0 Baso # (Auto) 100 VBG pH 7.01 L* VBG pCO2 11.7 L VBG pO2 74 H VBG HCO3 3 L VBG Total CO2 < 5 L VBG O2 Saturation 86 H VBG Base Excess -28.0 L Sodium 141 Potassium 4.1 Chloride 107 Carbon Dioxide < 5 L* BUN 15 Creatinine 1.00 Estimated GFR > 60.0 BUN/Creatinine Ratio 15.0 Glucose 462 H Calcium 9.0 Total Bilirubin 0.6 AST 15 ALT 14 Alkaline Phosphatase 158 H Total Protein 8.5 H Albumin 5.0 Globulin 3.5 Albumin/Globulin Ratio 1.4 Lipase 130 Assessment & Plan Assessment & Plan narrative: Diabetic ketoacidosis -this appears to be related to/caused by her recent control initiation. She appears to be intolerant of a progesterone only product. -With her history of pyelonephritis we need to make sure this is not a recurrent urinary infection, sending a urinalysis as soon as she is able to produce urine, once the dehydration has been corrected. -she will be treated with the standard DKA insulin infusion/IV fluid and electrolyte replacement protocol in our intensive care unit. -her electrolytes will be followed closely and her blood sugars will be managed appropriately. -she will be transitioned to subcu insulin, resuming her home regimen when she is able to eat and the blood sugar and anion gap has dropped to normal or at least below 15. Nausea of progesterone intolerance -[facility] her polymenorrhea/ prevention as she appears to have an intolerance to progesterone only oral products.
[2018-09-27] MEDS: SODIUM CHLORIDE 0.45% 1,000 ML 100 ML IV (10:29)
[2018-09-27 12:54] LABS: BUN Creatinine Ratio 16.3 (6-22); Blood Urea Nitrogen 13 mg/dL (7-17); Calcium 8.4 mg/dL (8.4-10.2); Chloride 117 mmol/L (98-107); Estimated Glomerular Filt Rate > 60.0 mL/min (>60); Glucose 139 mg/dL (70-100); HEMOLYSIS < 15 (0-50); Potassium 3.4 mmol/L (3.4-5.1); Sodium 143 mmol/L (137-145)
[2018-09-27 12:58] LABS: Carbon Dioxide 8 mmol/L (22-32)
[2018-09-27 13:04] LABS: Bacteria Urine None Seen
[2018-09-27 13:06] LABS: Appearance Urine UA SL CLOUDY; Bilirubin Urine UA NEGATIVE (NEGATIVE); Color Urine UA YELLOW; Glucose Urine UA 2+ g/dL (Negative); Ketones Urine UA 3+ (NEGATIVE); Leukocyte Esterase Urine UA 1+ (NEGATIVE); Nitrite Urine UA NEGATIVE (Negative); Occult Blood Urine UA 3+ (Negative); Protein Urine UA 1+ (Negative); Specific Gravity Urine UA 1.025 (1.000-1.035); Urobilinogen Urine UA 0.2 E.U./dL (0.2)
[2018-09-27 13:17] LABS: RBC Urine 1-5/HPF (0-5/HPF)
[2018-09-27 13:18] LABS: Culture Indicated Urine Specimen Cultured; Squamous Epithelial Cell Urine 5-10 /HPF (0-5/HPF); WBC Urine 5-10/HPF (0-5/HPF)
--- NOTE | 2018-09-27 13:50 | PC.NURSE ---
PT ADMITTED FROM ED IN DKA- SHE IS FLUSHED AND C/O LEG PAIN- DID RECEIVE ONE TIME ORDER FOR IBUPROFEN WHICH SHE REFUSED DUE TO HER KIDNEY DX. CBG INITIALLY 357 AND NOW DECREASED TO 108 WITH IVF CHANGES PER DKA PROTOCOL AND MD ORDERS - PT ALERT/ORIENTED AND MAINTAINING NPO STATUS WITH ICE CHIPS ONLY
[2018-09-27] MEDS: POTASSIUM CHLORIDE 40 MEQ in SODIUM CHLORIDE 0.9% 500 ML 130 ML IV (14:05)
[2018-09-27] MEDS: DEXTROSE 5%-0.45% NS 1,000 ML 100 ML IV ×2 (14:07→22:11)
[2018-09-27] MEDS: METOCLOPRAMIDE 10 MG/2 ML INJ IV (16:25)
[2018-09-27] MEDS: ACETAMINOPHEN 325 MG TABLET 650 MG PO (16:29)
[2018-09-27 18:18] LABS: BUN Creatinine Ratio 15.7 (6-22); Blood Urea Nitrogen 11 mg/dL (7-17); Calcium 8.4 mg/dL (8.4-10.2); Carbon Dioxide 12 mmol/L (22-32); Chloride 118 mmol/L (98-107); Estimated Glomerular Filt Rate > 60.0 mL/min (>60); Glucose 146 mg/dL (70-100); HEMOLYSIS < 15 (0-50); Potassium 3.9 mmol/L (3.4-5.1); Sodium 142 mmol/L (137-145)
--- NOTE | 2018-09-27 18:45 | PC.NURSE ---
1840 - Physician updated on patient's lab values and current anion gap. States to continue insulin gtt and fluids as currently ordered and recheck BMP in 4 hours.
[2018-09-27 19:15] LABS: Magnesium 1.8 mg/dL (1.6-2.3)
[2018-09-27 19:19] LABS: Phosphorous 1.1 mg/dL (2.5-4.5)
[2018-09-27] MEDS: POTASSIUM PHOSPHATE 15 MMOL in DEXTROSE 5% IN WATER 250 ML 63.75 ML IV (19:55)
[2018-09-27 23:23] LABS: Magnesium 1.7 mg/dL (1.6-2.3); Phosphorous 2.3 mg/dL (2.5-4.5)
[2018-09-27 23:24] LABS: BUN Creatinine Ratio 14.3 (6-22); Blood Urea Nitrogen 10 mg/dL (7-17); Carbon Dioxide 16 mmol/L (22-32); Chloride 117 mmol/L (98-107); Estimated Glomerular Filt Rate > 60.0 mL/min (>60); Glucose 139 mg/dL (70-100); HEMOLYSIS < 15 (0-50); Potassium 3.3 mmol/L (3.4-5.1); Sodium 141 mmol/L (137-145)
[2018-09-28] VITALS: BP 119/60; PULSE 97; RESP 10; TEMP 37.2; O2SAT 96
[2018-09-28] MEDS: POTASSIUM CHLORIDE 40 MEQ in SODIUM CHLORIDE 0.9% 500 ML 130 ML IV (00:49)
--- NOTE | 2018-09-28 01:51 | PC.NURSE ---
Addendum entered by Lisette Zarco R.N. 09/28/18 06:22: Insulin gtt infusing at 0.97units/hr until 0600, CBG 103, gtt off, see flow sheet. 60Meq K+ rider and 2gm Mg+ sulfate started as ordered. Tolerating clear liquid diet without N/V. Original Note: Patient is awake, oriented x3, says she is hungry and thirsty CBGs 145 and 141, insulin gtt at 0.97units/hr. K+Phos infusion complete, another 40Meq K+ rider started per order. Voided 750ml clear odiforous jose urine. Denies pain or nausea, VSS.
[2018-09-28 04:00] VITALS: BP 104/72; PULSE 97; RESP 16; TEMP 36.9; O2SAT 97
[2018-09-28 05:23] LABS: Blood Urea Nitrogen 8 mg/dL (7-17); Calcium 7.2 mg/dL (8.4-10.2); Carbon Dioxide 15 mmol/L (22-32); Chloride 114 mmol/L (98-107); Estimated Glomerular Filt Rate > 60.0 mL/min (>60); Glucose 114 mg/dL (70-100); HEMOLYSIS < 15 (0-50); Magnesium 1.5 mg/dL (1.6-2.3); Phosphorous 1.6 mg/dL (2.5-4.5); Potassium 3.3 mmol/L (3.4-5.1); Sodium 137 mmol/L (137-145)
[2018-09-28] MEDS: MAGNESIUM SULFATE 2 GM/50 ML PIGGYBACK IV (06:16)
[2018-09-28] MEDS: POTASSIUM CHLORIDE 60 MEQ in SODIUM CHLORIDE 0.9% 500 ML 88.333 ML IV (06:16)
[2018-09-28 07:56] VITALS: BP 103/56; PULSE 86; RESP 12; TEMP 36.3; O2SAT 98
[2018-09-28] MEDS: POTASSIUM PHOSPHATE 15 MMOL in DEXTROSE 5% IN WATER 250 ML 63.75 ML IV (08:43)
[2018-09-28] MEDS: INSULIN DEGLUDEC 32 EACH SUBCUT (10:15)
--- NOTE | 2018-09-28 10:23 | CM.DANOTE ---
DCP/Assessment: Reviewed chart. Patient is a 28yr old female admitted to [facility] with DKA. PCP is [facility]. No additional providers mentioned by patient. Primary payor is 1)[facility] 2)Medicaid. Met with patient explained CM/SW role. Patient resting comfortably in bed at time of visit. Patient reports that she resides with her fiancee/Reggie in [place]. Reggie currently at bedside sleeping. Patient currently unemployed. At this time patient does not anticipate any d/c planning needs. She hopes to d/c later this afternoon. Patient uses [facility] and has no questions related to her diabetes. Patient has had Type I Diabetes since the age of 6. Patient reports that she primarily sees her [facility] for outpatient care. [facility]. P: Home when stable. RAYMOND Valladares Discharge Planning/Care Management CM Discharge Assessment Start: 09/28/18 10:19 Freq: Status: Active Protocol: Document 09/28/18 10:19 KJS (Rec: 09/28/18 10:23 KJS [id number]) Discharge Planning Assessment Assigned C[facility]oman RAYMOND Valladares Contact Information Lorna Jimenes (mother) [phone] Advance Directives? No History Provided By Patient Family Member Significant Other Medical Record Prior Living Arrangements House Household Members significant other family Type of transporation used prior to Relies on Others admit Comment Patient reports that she does not have automobile at this time. Independent with ADL's Yes Is patient alert and oriented? Yes Caregiver for Another No Barriers to Discharge No Discharge Plan Home Transportation Arrangement Significant other can provide transport at d/c. Referrals Initiated None needed Whiteboard Updated in Patient Room with Yes name and ext. # of [facility]oman Review Status In Process Next Review Type Continued Stay Review
[2018-09-28] MEDS: INSULIN ASPART 100 UNIT/ML INSULN PEN SUBCUT (12:02)
[2018-09-28] MEDS: CALCIUM CARBONATE 600 MG TABLET PO (12:07)
--- NOTE | 2018-09-28 13:43 | PM.DS.1 ---
History of Present Illness Chief complaint: States possible NDKA Narrative: This is a 28-year-old female with type 1 diabetes since the age of 6 who presents with recurrent diabetic ketoacidosis. She has had 4 days of nausea and nearly no oral intake. She has not been vomiting and does not have any urinary tract infection symptoms, pneumonia symptoms, abdominal pain. She relates the nausea to a recent change in her control, starting on a progesterone only tablet last week. Her blood sugars have been in the 200s and she has continued on her 32 units of Tresiba long-acting insulin along with her lispro sliding scale. She explains that she was tried on the progesterone control pill because of concerns that a traditional estrogen/progesterone product might destabilize her diabetes. She had previously been on Implanon. She has lately been having excessive bleeding with her menstrual periods occurring twice a month. She has never been . In addition to prior DKA admission she has been treated for a left kidney infection and ?fungus ball in her kidney.? This was in her early 20s. She was diagnosed with diabetes at the age of 6. She goes to [facility] On admission her venous blood gas has a pH of 7.007 with a bicarb of 2.9 and an unmeasurable CO2 level. Her anion gap is 30. Discharge Providers Date of admission: 09/27/18 08:52 Discharge Date: 09/28/18 Discharge provider: Sara Dubon MD Summary Discharge Diagnosis: Diabetic ketoacidosis Nausea of progesterone intolerance Possible Gastroparesis Hospital Course: Diabetic ketoacidosis -this appears to be related to/caused by her recent control initiation. She appears to be intolerant of a progesterone only oral product. -her UA, collected after rehydrating her, showed negative nitrates, 1+ leukocytes, 5-10 WBC. A culture is still pending. She has had no UTI symptoms. She does have a history of pyelonephritis, however. The current plan is to contact her with antibiotic treatment if her cultures come back positive. -she was treated with the standard DKA insulin infusion/IV fluid and electrolyte replacement protocol in our intensive care unit. Blood sugars came back into the 100s. After eating and resuming her home insulin regimen she bounced up very quickly into the 400s, which was treated with a correctional scale Aspart, without return of any nausea or signs of DKA. Her anion gap dropped from 30 to 8. Nausea of progesterone intolerance -[facility] her polymenorrhea/ prevention as she appears to have an intolerance to progesterone only oral products. Possible Gastroparesis -discharged with as needed prescriptions for Reglan and Zofran. Exam Vital Signs (past 8 hours): - 09/28/18 07:56 Temperature 97.3 F L Pulse Rate 86 Respiratory Rate 12 Blood Pressure 103/56 L Pulse Oximetry 98 Oxygen Delivery Method Room Air Oxygen Flow Rate 0 Narrative Exam Narrative: Alert and oriented without apparent distress. Heart is regular rate and rhythm without murmur. Extremities have no ankle edema. Objective Labs Result Diagrams: 09/27/18 07:50 09/28/18 04:55 Labs: Laboratory Results - last 24 hr 09/27/18 09/27/18 09/27/18 18:00 18:00 18:00 Sodium 142 Potassium 3.9 Chloride 118 H Carbon Dioxide 12 L BUN 11 Creatinine 0.70 Estimated GFR > 60.0 BUN/Creatinine Ratio 15.7 Glucose 146 H Calcium 8.4 Phosphorus 1.1 L* Magnesium 1.8 09/27/18 09/27/18 09/28/18 23:03 23:03 04:55 Sodium 141 137 Potassium 3.3 L 3.3 L Chloride 117 H 114 H Carbon Dioxide 16 L 15 L BUN 10 8 Creatinine 0.70 0.50 L Estimated GFR > 60.0 > 60.0 BUN/Creatinine Ratio 14.3 16.0 Glucose 139 H 114 H Calcium 8.0 L 7.2 L Phosphorus 2.3 L D 1.6 L Magnesium 1.7 1.5 L Discharge Plan Discharge Plan Patient Disposition: Home Discharge comment: Follow up with [facility] next week Discharge Med Rec/Prescriptions Prescriptions: New ondansetron HCl [Zofran] 4 mg tablet 4 mg PO Q6-8H PRN (Reason: nausea and vomiting) Qty: 7 RF: 0 metoclopramide HCl [Reglan] 10 mg tablet 10 mg PO Q6H PRN (Reason: nausea and vomiting) Qty: 7 RF: 0 Continued Tresiba FlexTouch U-100 100 unit/mL (3 mL) Insulin Pen 32 units Sub-Q DAILY Qty: 0 RF: 0 loratadine 10 mg tablet 10 mg PO DAILY Qty: 30 RF: 0 insulin lispro 100 unit/mL insulin pen 5 - 15 units subcut TID RF: 0 Provider Discharge Instructions Diet: Carb-consistent/Diabetic Visit Report/Discharge Packet Instructions: DI for Diabetic Ketoacidosis Discharge Data Attending Provider: Sara Dubon Admit Date/Time: 09/27/18 08:52
[2018-09-28] MEDS: INSULIN ASPART 100 UNIT/ML INSULN PEN 12 UNIT SUBCUT (13:55)
== END 2018-09-28 14:00 | disposition home or self-care (01) | DRG 639 ==
LOC: ED 08:33 → ICU 08:58
PROVIDERS: Nurse Practitioner Adult Health; Admitting Provider Family Medicine; Emergency Provider Emergency Medicine; Visit Provider Family Medicine
DX: E10.10 Type 1 diabetes mellitus with ketoacidosis without coma (principal); T38.5X5A Adverse effect of other estrogens and progestogens, initial encounter; R11.0 Nausea; E10.43 Type 1 diabetes mellitus with diabetic autonomic (poly)neuropathy; K31.84 Gastroparesis
CPT/HCPCS: 36415; 36591; 71045; 80048; 80053; 81001; 82805; 82962; 83690; 83735; 84100; 85025; 87086; 87797; 93005; 96374; 96375; 99282; 99284; J1170; J2405; J2765; J3480; J7050

== ENCOUNTER 2018-12-11 20:07 | Inpatient (IN) | payer MEDICAID, SELFPAY ==
[2018-09-27 11:00] VITALS: BMI 20.2
[2018-12-11 20:22] VITALS: BP 145/79; PULSE 134; RESP 15; TEMP 36.4; O2SAT 100; BMI 19.1
--- NOTE | 2018-12-11 20:43 | PC.NURSE ---
Attempted PIV placement in L hand, unsuccessful. RAYNA Sutherland to try.
--- NOTE | 2018-12-11 20:57 | ED.GENADULT ---
HPI - General Adult General Chief complaint: Diabetic Problem Stated complaint: NAUSEA, DIABETIC Time Seen by Provider: 12/11/18 20:19 Source: patient Mode of arrival: ambulatory Limitations: no limitations History of Present Illness HPI narrative: Patient is a 28-year-old female. She is a known type 1 diabetic on insulin. She has had multiple incidences of DKA in the past. Patient states yesterday she was at her normal state health. She states that she did eat pizza last evening. This morning she started to not feel very well which progressed as the day went on. Has had some nausea but no vomiting. Overall has generalized body aches. She arrived to the emergency department stating that she thinks that she is in DKA. Patient also states that she does not regularly check her blood sugars. She states she doses her insulin based on how she is feeling at any particular time. Related Data Home Medications Medication Instructions Recorded Confirmed Tresiba FlexTouch U-100 30 units SUB-Q DAILY #0 10/29/17 12/11/18 Allergies Allergy/AdvReac Type Severity Reaction Status Date / Time arredondo [ARREDONDO] Allergy Intermediate Hives, Verified 12/11/18 20:22 pruritus iodine [IODINE] Allergy Intermediate rash, itchy Verified 12/11/18 20:22 morphine Allergy Intermediate Difficulty Verified 12/11/18 20:22 Breathing shellfish derived Allergy Intermediate rash Verified 12/11/18 20:22 [SHELLFISH DERIVED] adhesive [ADHESIVE] Allergy Unknown tape Verified 12/11/18 20:22 latex [LATEX] Allergy Unknown Hives Verified 12/11/18 20:22 Review of Systems Constitutional Reports chills, Reports fatigue and Reports fever(s) Comments: Body aches Cardiovascular Denies chest pain and Denies dyspnea Respiratory Denies dyspnea Gastrointestinal Gastrointestinal: Denies abdominal pain, Denies change in stool character, Reports nausea and Denies vomiting Genitourinary Denies urinary frequency, Denies dysuria and Denies flank pain Musculoskeletal Reports myalgias and Denies arthralgias Integumentary/Breasts Denies lesions and Denies rash Neurologic Denies behavioral changes Psychiatric Denies behavioral changes Endocrine Reports fatigue Hematologic/Lymphatic Denies easy bleeding and Denies easy bruising [facility] Medical History Irregular menstrual cycle (Acute) Migraine headache (Chronic) Type 1 diabetes mellitus (Chronic) DKA (diabetic ketoacidoses) (Resolved) History of pyelonephritis (Resolved) Nephrolithiasis (Resolved) Social History household members: significant other and family Smoking Status: Never smoker alcohol intake: never Exam Initial Vital Signs Initial Vital Signs: Vital Signs Temperature 97.6 F 12/11/18 20:22 Pulse Rate 134 H 12/11/18 20:22 Respiratory Rate 15 12/11/18 20:22 Blood Pressure 145/79 H 12/11/18 20:22 Pulse Oximetry 100 12/11/18 20:22 Const General: cooperative, well groomed, No acute distress and ill appearing Orientation: alert, awake and oriented x3 HENMT Head: normal to inspection and normocephalic Resp Effort & Inspection: normal respiratory effort Auscultation: clear to auscultation bilaterally Cardio Rate: tachycardic Rhythm: regular rhythm GI Inspection: non-distended Palpation: soft, No firm and tender (Generalized tenderness) Skin Lesions: no lesions Rashes: no rashes Neuro General: alert and awake Cognition: normal cognition Speech: speech normal Sensory Exam: no sensory deficits noted Extrem General: normal to inspection and capillary refill normal Psych Appearance: grossly normal and well kempt Scores GCS Alex coma scale eye opening: Spontaneous [place] coma scale verbal response: Orientated [place] coma scale motor response: Obey commands [place] coma scale total score: 15 Course Orders Ordered: ED Orders 12/11/18 20:23 EKG-12 Lead Stat 12/11/18 20:47 Venous Blood Gas Stat 12/11/18 20:54 Complete Blood Count AUTO DIFF Stat Comprehensive Metabolic Panel Stat Ethanol (ETOH) Stat Hemoglobin A1C% w Est Avg Glu Routine Ketones (Beta-Hydroxybutyrate) Stat Lactate (Lactic Acid) Stat Lipase Stat Magnesium Stat Phosphorous Stat Test Serum,Qual Stat Procalcitonin Stat 12/11/18 21:21 Blood Culture Stat 12/11/18 22:29 Consult to Dietitian, Adult Routine Consult to Discharge Planning Routine 12/11/18 22:32 Consult to Surgical First Assistant Routine 12/11/18 23:25 Consult to Dietitian, Adult Routine 12/11/18 23:30 MRSA PCR Stat 12/12/18 02:00 Basic Metabolic Panel Urgent Magnesium Urgent Phosphorous Urgent 12/12/18 06:00 Basic Metabolic Panel Routine Complete Blood Count AUTO DIFF Routine Magnesium Urgent Phosphorous Urgent 12/12/18 10:00 Basic Metabolic Panel Urgent Acetaminophen (Tylenol) 650 mg PO Q4HR PRN PRN Reason: As Needed for Fever/Mild Pain Dextrose (D50w) 25 gm IV PRN PRN PRN Reason: Hypoglycemia Insulin Human Regular 100 unit (/ Sodium Chloride) 100 mls @ 6 mls/hr IV TITRATE BLAISE; Protocol Last Titration: 12/12/18 01:12 Dose: 4.6 ml/hr, 4.6 mls/hr Titration: 12/11/18 23:14 Dose: 6 mls/hr Admin: 12/11/18 22:12 Dose: 6 ml/hr, 6 mls/hr Sodium Chloride (Normal Saline 0.9%) 1,000 mls @ 250 mls/hr IV CONT BLAISE Stop: 12/12/18 02:29 Last Admin: 12/11/18 23:05 Dose: 250 mls/hr Insulin Human Regular 100 unit (/ Sodium Chloride) 100 mls @ 6 mls/hr IV TITRATE BLAISE; Protocol Last Admin: 12/11/18 23:05 Dose: 0.15 units/kg/hr, 6.9 mls/hr Dextrose/Sodium Chloride (Dextrose 5%-0.45% Ns) 1,000 mls @ 150 mls/hr IV CONT PRN PRN Reason: Blood Sugar - High Sodium Chloride (Normal Saline 0.45%) 1,000 mls @ 200 mls/hr IV CONT BLAISE Metoclopramide HCl (Reglan) 10 mg PO Q6HR PRN PRN Reason: Nausea And Vomiting Discontinued Medications Hydromorphone HCl (Dilaudid) 0.5 mg IV NOW ONE Stop: 12/11/18 21:53 Last Admin: 12/11/18 21:55 Dose: 0.5 mg Sodium Chloride (Normal Saline 0.9%) 1,000 mls @ 1,000 mls/hr IV BOLUS ONE Stop: 12/11/18 21:20 Last Infusion: 12/11/18 21:59 Dose: 0 mls/hr Admin: 12/11/18 21:05 Dose: 1,000 mls/hr Sodium Chloride (Normal Saline 0.9%) 1,000 mls @ 250 mls/hr IV CONT BLAISE Last Infusion: 12/11/18 23:17 Dose: 250 mls/hr Admin: 12/11/18 21:42 Dose: 250 mls/hr Vital Signs - 8 hr 12/11/18 20:22 12/11/18 21:08 12/11/18 22:00 Temperature 97.6 F Pulse Rate 134 H 119 H 115 H Respiratory Rate 15 18 24 Blood Pressure 145/79 H Blood Pressure [Left Arm] 125/86 132/84 Pulse Oximetry 100 98 97 12/11/18 23:00 12/12/18 00:00 12/12/18 01:00 Temperature 98.4 F Pulse Rate 118 H 115 H 118 H Respiratory Rate 18 20 20 Blood Pressure 141/79 H 130/91 H 105/61 Blood Pressure [Left Arm] Pulse Oximetry 99 100 99 Medical Decision Making Medical Records Medical records reviewed: Yes I reviewed the patient's medical records. Lab Data Lab results reviewed: Yes I reviewed the patient's lab results. Result diagrams: 12/11/18 20:54 12/11/18 20:54 Lab Results 12/11/18 12/11/18 12/11/18 Range/Units 00:14 00:14 20:47 WBC (4.5-11.0) X10^3/uL RBC (4.0-5.2) X10^6/uL Hgb (12.0-16.0) g/dL Hct (36-46) % MCV (80-100) fL MCH (26-34) PG MCHC (30-36) % RDW (11.6-14.8) % Plt Count (150-400) X10^3/uL Neut % (Auto) (50-75) % Lymph % (Auto) (25-40) % Branch % (Auto) (3-14) % Eos % (Auto) (2-4) % Baso % (Auto) (0-2) % Neut # (Auto) (4789-1128) /uL Lymph # (Auto) (4734-0407) /uL Branch # (Auto) (0-900) /uL Eos # (Auto) (0-450) /uL Baso # (Auto) (0-100) /uL VBG pH 7.07 L* (7.33-7.43) VBG pCO2 18.2 L (45-50) mmHg VBG pO2 33 L (35-45) mmHg VBG HCO3 5 L (23-28) mmol/L VBG Total CO2 6 L (24-29) mmol/L VBG O2 Saturation 43 L (70-75) % VBG Base Excess -25.0 L (0-4) mmol/L Sodium (137-145) mmol/L Potassium (3.4-5.1) mmol/L Chloride (98-107) mmol/L Carbon Dioxide (22-32) mmol/L BUN (7-17) mg/dL Creatinine (0.52-1.04) mg/dL Estimated GFR (>60) mL/min BUN/Creatinine Ratio (6-22) Glucose (70-100) mg/dL Hemoglobin A1c (4.0-6.0) % Lactate (0.7-2.1) mmol/L Calcium (8.4-10.2) mg/dL Phosphorus (2.5-4.5) mg/dL Magnesium (1.6-2.3) mg/dL Total Bilirubin (0.2-1.3) mg/dL AST (14-36) IU/L ALT (9-52) IU/L Alkaline Phosphatase (38-126) U/L Total Protein (6.3-8.2) g/dL Albumin (3.5-5.0) g/dL Globulin (1.7-4.1) g/dL Albumin/Globulin Ratio (1.0-2.8) Lipase (23-300) U/L Procalcitonin (<0.5) ng/mL Serum , Qual (Negative) Urine Color Yellow Urine Appearance Clear Urine pH 5.0 (4.5-8.0) Ur Specific [place] 1.020 (1.000-1.035) Urine Protein Trace H (Negative) Urine Glucose (UA) 2+ H (Negative) g/dL Urine Ketones 3+ H (NEGATIVE) Urine Occult Blood 1+ H (Negative) Urine Nitrate Negative (Negative) Urine Bilirubin Negative (NEGATIVE) Urine Urobilinogen 0.2 (0.2) E.U./dL Ur Leukocyte Esterase Trace H (NEGATIVE) Urine RBC None seen (0-5/HPF) Urine WBC 1-5/hpf (0-5/HPF) Ur Squamous Epith Cells 0-1 /hpf (0-5/HPF) Urine Bacteria Few (2-10) H (None) Ur Culture Indicated? Specimen cultured Urine Opiates Screen Negative (Negative) Ur Oxycodone Screen Negative (Negative) Urine Methadone Screen Negative (Negative) Ur Barbiturates Screen Negative (Negative) U Tricyclic Antidepress Negative (Negative) Ur Phencyclidine Scrn Negative (Negative) Ur Amphetamines Screen Negative (Negative) U Methamphetamines Scrn Negative (Negative) Ur MDMA Scrn (Ecstasy) Negative (Negative) U Benzodiazepines Scrn Negative (Negative) Urine Cocaine Screen Negative (Negative) U Marijuana (THC) Screen Negative (Negative) Ethyl Alcohol ( - 10) mg/dL Ketones (<0.27) mmol/L 12/11/18 12/11/18 12/11/18 Range/Units 20:54 20:54 20:54 WBC 11.4 H (4.5-11.0) X10^3/uL RBC 5.24 H (4.0-5.2) X10^6/uL Hgb 16.5 H (12.0-16.0) g/dL Hct 49.9 H (36-46) % MCV 95.3 (80-100) fL MCH 31.5 (26-34) PG MCHC 33.0 (30-36) % RDW 13.1 (11.6-14.8) % Plt Count 367 (150-400) X10^3/uL Neut % (Auto) 64.2 (50-75) % Lymph % (Auto) 28.9 (25-40) % Branch % (Auto) 5.7 (3-14) % Eos % (Auto) 0.2 L (2-4) % Baso % (Auto) 1.0 (0-2) % Neut # (Auto) 7300 H (7950-7871) /uL Lymph # (Auto) 3300 (4986-3341) /uL Branch # (Auto) 600 (0-900) /uL Eos # (Auto) 0 (0-450) /uL Baso # (Auto) 100 (0-100) /uL VBG pH (7.33-7.43) VBG pCO2 (45-50) mmHg VBG pO2 (35-45) mmHg VBG HCO3 (23-28) mmol/L VBG Total CO2 (24-29) mmol/L VBG O2 Saturation (70-75) % VBG Base Excess (0-4) mmol/L Sodium 138 (137-145) mmol/L Potassium 4.4 (3.4-5.1) mmol/L Chloride 105 (98-107) mmol/L Carbon Dioxide 6 L* (22-32) mmol/L BUN 16 (7-17) mg/dL Creatinine 1.00 (0.52-1.04) mg/dL Estimated GFR > 60.0 (>60) mL/min BUN/Creatinine Ratio 16.0 (6-22) Glucose 473 H (70-100) mg/dL Hemoglobin A1c (4.0-6.0) % Lactate (0.7-2.1) mmol/L Calcium 9.8 (8.4-10.2) mg/dL Phosphorus 4.4 (2.5-4.5) mg/dL Magnesium 2.0 (1.6-2.3) mg/dL Total Bilirubin 0.6 (0.2-1.3) mg/dL AST 14 (14-36) IU/L ALT 11 (9-52) IU/L Alkaline Phosphatase 169 H (38-126) U/L Total Protein 8.1 (6.3-8.2) g/dL Albumin 4.7 (3.5-5.0) g/dL Globulin 3.4 (1.7-4.1) g/dL Albumin/Globulin Ratio 1.4 (1.0-2.8) Lipase 148 (23-300) U/L Procalcitonin < 0.05 (<0.5) ng/mL Serum , Qual Negative (Negative) Urine Color Urine Appearance Urine pH (4.5-8.0) Ur Specific [place] (1.000-1.035) Urine Protein (Negative) Urine Glucose (UA) (Negative) g/dL Urine Ketones (NEGATIVE) Urine Occult Blood (Negative) Urine Nitrate (Negative) Urine Bilirubin (NEGATIVE) Urine Urobilinogen (0.2) E.U./dL Ur Leukocyte Esterase (NEGATIVE) Urine RBC (0-5/HPF) Urine WBC (0-5/HPF) Ur Squamous Epith Cells (0-5/HPF) Urine Bacteria (None) Ur Culture Indicated? Urine Opiates Screen (Negative) Ur Oxycodone Screen (Negative) Urine Methadone Screen (Negative) Ur Barbiturates Screen (Negative) U Tricyclic Antidepress (Negative) Ur Phencyclidine Scrn (Negative) Ur Amphetamines Screen (Negative) U Methamphetamines Scrn (Negative) Ur MDMA Scrn (Ecstasy) (Negative) U Benzodiazepines Scrn (Negative) Urine Cocaine Screen (Negative) U Marijuana (THC) Screen (Negative) Ethyl Alcohol < 10 ( - 10) mg/dL Ketones 17.3 H (<0.27) mmol/L 12/11/18 12/11/18 Range/Units 20:54 20:54 WBC (4.5-11.0) X10^3/uL RBC (4.0-5.2) X10^6/uL Hgb (12.0-16.0) g/dL Hct (36-46) % MCV (80-100) fL MCH (26-34) PG MCHC (30-36) % RDW (11.6-14.8) % Plt Count (150-400) X10^3/uL Neut % (Auto) (50-75) % Lymph % (Auto) (25-40) % Branch % (Auto) (3-14) % Eos % (Auto) (2-4) % Baso % (Auto) (0-2) % Neut # (Auto) (3892-2406) /uL Lymph # (Auto) (1095-6947) /uL Branch # (Auto) (0-900) /uL Eos # (Auto) (0-450) /uL Baso # (Auto) (0-100) /uL VBG pH (7.33-7.43) VBG pCO2 (45-50) mmHg VBG pO2 (35-45) mmHg VBG HCO3 (23-28) mmol/L VBG Total CO2 (24-29) mmol/L VBG O2 Saturation (70-75) % VBG Base Excess (0-4) mmol/L Sodium (137-145) mmol/L Potassium (3.4-5.1) mmol/L Chloride (98-107) mmol/L Carbon Dioxide (22-32) mmol/L BUN (7-17) mg/dL Creatinine (0.52-1.04) mg/dL Estimated GFR (>60) mL/min BUN/Creatinine Ratio (6-22) Glucose (70-100) mg/dL Hemoglobin A1c > 14.0 H (4.0-6.0) % Lactate 1.0 (0.7-2.1) mmol/L Calcium (8.4-10.2) mg/dL Phosphorus (2.5-4.5) mg/dL Magnesium (1.6-2.3) mg/dL Total Bilirubin (0.2-1.3) mg/dL AST (14-36) IU/L ALT (9-52) IU/L Alkaline Phosphatase (38-126) U/L Total Protein (6.3-8.2) g/dL Albumin (3.5-5.0) g/dL Globulin (1.7-4.1) g/dL Albumin/Globulin Ratio (1.0-2.8) Lipase (23-300) U/L Procalcitonin (<0.5) ng/mL Serum , Qual (Negative) Urine Color Urine Appearance Urine pH (4.5-8.0) Ur Specific [place] (1.000-1.035) Urine Protein (Negative) Urine Glucose (UA) (Negative) g/dL Urine Ketones (NEGATIVE) Urine Occult Blood (Negative) Urine Nitrate (Negative) Urine Bilirubin (NEGATIVE) Urine Urobilinogen (0.2) E.U./dL Ur Leukocyte Esterase (NEGATIVE) Urine RBC (0-5/HPF) Urine WBC (0-5/HPF) Ur Squamous Epith Cells (0-5/HPF) Urine Bacteria (None) Ur Culture Indicated? Urine Opiates Screen (Negative) Ur Oxycodone Screen (Negative) Urine Methadone Screen (Negative) Ur Barbiturates Screen (Negative) U Tricyclic Antidepress (Negative) Ur Phencyclidine Scrn (Negative) Ur Amphetamines Screen (Negative) U Methamphetamines Scrn (Negative) Ur MDMA Scrn (Ecstasy) (Negative) U Benzodiazepines Scrn (Negative) Urine Cocaine Screen (Negative) U Marijuana (THC) Screen (Negative) Ethyl Alcohol ( - 10) mg/dL Ketones (<0.27) mmol/L Point of Care Testing Glucose POC 220 Point of care testing: Point of Care Testing Glucose POC 220 ECG Data Attestation: I personally reviewed and interpreted this ECG as follows: Prior ECG tracings: not available for review Interpretation: Sinus tachycardia Ventricular rate of 120 Normal axis Normal QRS Normal QTC No ST T wave changes MDM Narrative Medical decision making narrative: Patient again in DKA. Has an anion gap of 27. Potassium 4.5. Patient has received fluids. Will start insulin drip. Hold on any replacement of potassium magnesium or phosphorus currently given the current levels however will continue to check these. I do suspect that the DKA secondary to indiscretions/lack of insulin control of her diabetes. Will hold on any antibiotics. Discussed the case with MARGO Spicer the night hospitalist will admit for further evaluation and treatment. Discussed admission with the patient who expressed understanding. Critical Care Time Critical Care Time: Yes Total Critical Care Time: 35 Attestation: The high probability of a clinically significant, sudden or life threatening deterioration of the endocrine [] system(s) required my full and direct attention, intervention and personal management. The aggregate critical care time was 35 minutes. This time is in addition to time spent performing reported procedures but includes the following: [] Data Review and interpretation [] Patient assessment and monitoring of vital signs [] Documentation [] Medication orders and management Discharge Plan Departure Patient Disposition: Admitted As Inpatient Clinical Impression: DKA (diabetic ketoacidosis) Qualifiers: Diabetes mellitus type: type 1 Diabetes mellitus complication detail: without coma Qualified Code(s): E10.10 - Type 1 diabetes mellitus with ketoacidosis without coma Discharge Date/Time: 12/11/18 23:05 Interventions: ED Discharge Assessment Last Done: 12/11/18 23:13 Admit Date/Time: 12/11/18 22:32 Admit Provider: Julio Cesar Spicer
[2018-12-11] MEDS: SODIUM CHLORIDE 0.9% 1,000 ML 1000 ML IV (21:05)
[2018-12-11 21:08] VITALS: BP 125/86; PULSE 119; RESP 18; O2SAT 98
[2018-12-11 21:08] LABS: pH VBG 7.07 (7.33-7.43)
[2018-12-11 21:09] LABS: HCO3 VBG 5 mmol/L (23-28); Oxygen Saturation VBG 43 % (70-75); PCO2 VBG 18.2 mmHg (45-50); PO2 VBG 33 mmHg (35-45); Total CO2 VBG 6 mmol/L (24-29)
[2018-12-11 21:18] LABS: Add Manual Diff / Slide Review NO; Basophils Absolute Auto 100 /uL (0-100); Eosinophils Absolute Auto 0 /uL (0-450); Eosinophils Percent Auto 0.2 % (2-4); Hematocrit 49.9 % (36-46); Hemoglobin 16.5 g/dL (12.0-16.0); Lymphocytes Absolute Auto 3300 /uL (1100-4500); Lymphocytes Percent Auto 28.9 % (25-40); Mean Corpuscular Hemoglobin 31.5 PG (26-34); Mean Corpuscular Volume 95.3 fL (80-100); Monocytes Absolute Auto 600 /uL (0-900); Monocytes Percent Auto 5.7 % (3-14); Neutrophils Absolute Auto 7300 /uL (1500-7000); Neutrophils Percent Auto 64.2 % (50-75); Platelet Count 367 X10^3/uL (150-400); Red Blood Cell Count 5.24 X10^6/uL (4.0-5.2); Red Cell Distribution Width 13.1 % (11.6-14.8); White Blood Cell Count 11.4 X10^3/uL (4.5-11.0)
[2018-12-11 21:20] LABS: Alanine Aminotransferase 11 IU/L (9-52); Albumin 4.7 g/dL (3.5-5.0); Albumin Globulin Ratio 1.4 (1.0-2.8); Alkaline Phosphatase 169 U/L (38-126); Aspartate Aminotransferase 14 IU/L (14-36); Bilirubin Total 0.6 mg/dL (0.2-1.3); Blood Urea Nitrogen 16 mg/dL (7-17); Calcium 9.8 mg/dL (8.4-10.2); Chloride 105 mmol/L (98-107); Estimated Glomerular Filt Rate > 60.0 mL/min (>60); Globulin 3.4 g/dL (1.7-4.1); Glucose 473 mg/dL (70-100); HEMOLYSIS < 15 (0-50); Lipase 148 U/L (23-300); Phosphorous 4.4 mg/dL (2.5-4.5); Potassium 4.4 mmol/L (3.4-5.1); Sodium 138 mmol/L (137-145); Total Protein 8.1 g/dL (6.3-8.2)
[2018-12-11 21:22] LABS: Pregnancy Test Serum,Qual Negative (Negative)
[2018-12-11 21:35] LABS: Procalcitonin < 0.05 ng/mL (<0.5)
[2018-12-11] MEDS: SODIUM CHLORIDE 0.9% 1,000 ML 250 ML IV ×2 (21:42→23:05)
[2018-12-11 21:43] LABS: Carbon Dioxide 6 mmol/L (22-32)
[2018-12-11] MEDS: HYDROMORPHONE 0.5 MG INJ IV (21:55)
[2018-12-11 22:00] VITALS: BP 132/84; PULSE 115; RESP 24; O2SAT 97
[2018-12-11 22:01] LABS: Ethanol (ETOH) < 10 mg/dL
[2018-12-11] MEDS: INSULIN REGULAR, HUMAN 100 UNIT in SODIUM CHLORIDE 0.9% 100 ML 6 ML IV (22:12)
[2018-12-11 22:27] LABS: Ketones (Beta-Hydroxybutyrate) 17.3 mmol/L (<0.27)
[2018-12-11 23:00] VITALS: BP 141/79; PULSE 118; RESP 18; TEMP 36.9; O2SAT 99
[2018-12-11] MEDS: INSULIN REGULAR, HUMAN 100 UNIT in SODIUM CHLORIDE 0.9% 100 ML 6.9 ML IV (23:05)
[2018-12-11 23:17] VITALS: BMI 19.1
[2018-12-12] VITALS (14 sets, daily range): BP systolic 91–130; BP diastolic 49–91; PULSE 18–118; RESP 14–20; TEMP 36.7–37.6; O2SAT 96–100
[2018-12-12 00:15] LABS: RBC Urine None Seen (0-5/HPF)
[2018-12-12 00:29] LABS: Appearance Urine UA Clear; Color Urine UA Yellow; Urine Amphetamines Negative (Negative); Urine Barbiturates Negative (Negative); Urine Benzodiazepines Negative (Negative); Urine Cocaine Negative (Negative); Urine MDMA Negative (Negative); Urine Methadone Negative (Negative); Urine Methamphetamines Negative (Negative); Urine Morphine/Opi cutoff 2000 Negative (Negative); Urine Oxycodone Negative (Negative); Urine Phencyclidine Negative (Negative); Urine Tetrahydrocannabinol Negative (Negative); Urine Tricyclic Antidepressant Negative (Negative)
[2018-12-12 00:30] LABS: Bacteria Urine Few (2-10); Bilirubin Urine UA NEGATIVE (NEGATIVE); Glucose Urine UA 2+ g/dL (Negative); Ketones Urine UA 3+ (NEGATIVE); Leukocyte Esterase Urine UA TRACE (NEGATIVE); Nitrite Urine UA NEGATIVE (Negative); Occult Blood Urine UA 1+ (Negative); Protein Urine UA TRACE (Negative); Squamous Epithelial Cell Urine 0-1 /HPF (0-5/HPF); Urobilinogen Urine UA 0.2 E.U./dL (0.2); WBC Urine 1-5/HPF (0-5/HPF)
[2018-12-12 00:31] LABS: Culture Indicated Urine Specimen Cultured
--- NOTE | 2018-12-12 00:31 | PC.ADMIT ---
[email or web address] Admission Note: The patient,Sarabjit Jimenes,28 y/o, was given written information regarding hospital policies, unit procedures and contact persons. Patient's smoking status: Never smoker. Vital Signs - 8 hr 12/11/18 20:22 12/11/18 21:08 12/11/18 22:00 Temperature 97.6 F Pulse Rate 134 H 119 H 115 H Respiratory Rate 15 18 24 Blood Pressure 145/79 H Blood Pressure [Left Arm] 125/86 132/84 Pulse Oximetry 100 98 97 12/11/18 23:00 12/12/18 00:00 Temperature 98.4 F Pulse Rate 118 H 115 H Respiratory Rate 18 20 Blood Pressure 141/79 H 130/91 H Blood Pressure [Left Arm] Pulse Oximetry 99 100 Pt received at 2300 via ER. Ambulated to bed without difficulty. Pt awake, alert in NAD. Insulin gtt verified with RAYNA Quintana at bedside. Infusing at 6.9 units/hour per protocol. IVF infusing per orders. VSS, afebrile. Tele ST - rate 120's. Omari Spicer MACHINING ASSOCIATE aware. Sp02 100% RA. Oriented to room, plan of care and call light. Verbalized understanding. Omari Spicer at bedside to assess patient.
[2018-12-12 01:10] LABS: Hemoglobin A1C% w Est Avg Glu > 14.0 % (4.0-6.0)
[2018-12-12] MEDS: DEXTROSE 5%-0.45% NS 1,000 ML 150 ML IV (01:46)
[2018-12-12 02:17] LABS: BUN Creatinine Ratio 17.5 (6-22); Blood Urea Nitrogen 14 mg/dL (7-17); Calcium 8.7 mg/dL (8.4-10.2); Chloride 114 mmol/L (98-107); Estimated Glomerular Filt Rate > 60.0 mL/min (>60); Glucose 176 mg/dL (70-100); HEMOLYSIS < 15 (0-50); Magnesium 1.6 mg/dL (1.6-2.3); Phosphorous 2.4 mg/dL (2.5-4.5); Potassium 3.6 mmol/L (3.4-5.1); Sodium 142 mmol/L (137-145)
[2018-12-12 02:19] LABS: Carbon Dioxide 9 mmol/L (22-32)
[2018-12-12] MEDS: POTASSIUM CHLORIDE 40 MEQ in SODIUM CHLORIDE 0.9% 500 ML 130 ML IV (03:19)
--- NOTE | 2018-12-12 05:49 | PM.HP.1 ---
History of Present Illness Date Patient Seen: 12/11/18 Time Patient Seen: 23:30 Chief complaint: NAUSEA, DIABETIC Narrative: Ms. Sarabjit Jimenes is a 28-year-old female patient with a history significant for type 1 diabetes, migraines, irregular menstruation and prior pyelonephritis who presents to the ER with complaints of nausea without vomiting stating she is in DKA. Patient is a known type 1 diabetic with multiple admissions for DKA. She states her symptoms began today with nausea, irritability, body aches but no complaints of gastroparesis. The patient states she ate a pizza last night and took extra insulin but has been judging her insulin dose more on how she feels. The patient denies recent illness, fever chills headaches or dizziness. She denies nasal congestion or sore throat. She reports no chest pain palpitations, shortness of breath cough or wheezing. She has had no abdominal pain but has had nausea without vomiting. No diarrhea constipation. She denies urinary frequency urgency or burning and no hematuria. She has regular menstrual period with a last menstrual period being 2 months ago now control. Arrived arrival in the ER the patient was afebrile with temperature 97.6?, heart rate of 134, blood pressure 145/79, respirations of 15 saturating 100% on room air. Laboratory analysis finds a white count of 11.4, hemoglobin was 16.5 and hematocrit of 49.9 with platelets of 369. Her chemistries are notable for a potassium of 4.4, magnesium 2.0 and a phos of 4.4. Her CO level is 6 with an anion gap 26. She has her but blood sugar of 473. On VBG she has a pH of 7.07, pCO2 of 18.2, PO2 of 33, bicarb of 5 with a base deficit of -25. Her lactic acid is 1.0 and procalcitonin is negative at less than 0.05. Her serum test is negative. Patient History Medical History Irregular menstrual cycle (Acute) Migraine headache (Chronic) Type 1 diabetes mellitus (Chronic) DKA (diabetic ketoacidoses) (Resolved) History of pyelonephritis (Resolved) Nephrolithiasis (Resolved) Surgical History Status post laser lithotripsy of ureteral calculus (Acute) History of ureter stent (Resolved) Family History Father In good health Mother Cardiac disease Social History household members: significant other and family Smoking Status: Never smoker alcohol intake: never Family & Social History Family History Father In good health Mother Cardiac disease Social History: household members significant other,family Prior Living Arrangements House Safety & Behavioral: Feels Safe in Current Yes Environment Been Physically Hurt or No Threatened By a Person Suicidal Ideation Description None Suicide Plan Description No Plan Tobacco & Substance use: Smoking Status Never smoker alcohol intake never alcohol intake frequency holiday/special occasion Substance Use Type does not use Comment: The patient resides in [place] living in a single family home with her fiance. She describes hers father's as good and mother has cardiac problems. She has 1/2 sister which has a heart murmur. Occupation: Patient is presently not working but seeking employment. Smoking: Patient denies ever smoking. Alcohol: Patient states very aware in very small amounts because of her diabetes. Substance use: The patient denies recreation pharmaceuticals herbal or cannabis products. Advanced directives: The patient has no advanced directives but in direct discussion states she wants to be FULL CODE. She designates her nina Paredes to be her surrogate decision maker. Meds Home Medications Medication Instructions Recorded Confirmed Type Tresiba FlexTouch U-100 30 units SUB-Q DAILY #0 10/29/17 12/11/18 History Allergies Allergy/AdvReac Type Severity Reaction Status Date / Time abdalla [ABDALLA] Allergy Intermediate Hives, Verified 12/11/18 20:22 pruritus iodine [IODINE] Allergy Intermediate rash, itchy Verified 12/11/18 20:22 morphine Allergy Intermediate Difficulty Verified 12/11/18 20:22 Breathing shellfish derived Allergy Intermediate rash Verified 12/11/18 20:22 [SHELLFISH DERIVED] adhesive [ADHESIVE] Allergy Unknown tape Verified 12/11/18 20:22 latex [LATEX] Allergy Unknown Hives Verified 12/11/18 20:22 Review of Systems Review of Systems All systems reviewed & are unremarkable except as noted in HPI and below Exam Vital Signs (past 8 hours): - 12/11/18 22:00 12/11/18 23:00 12/12/18 00:00 Temperature 98.4 F Pulse Rate 115 H 118 H 115 H Respiratory Rate 24 18 20 Blood Pressure 141/79 H 130/91 H Blood Pressure [Left Arm] 132/84 Pulse Oximetry 97 99 100 12/12/18 01:00 12/12/18 02:00 12/12/18 03:00 Temperature Pulse Rate 118 H 105 H 106 H Respiratory Rate 20 20 20 Blood Pressure 105/61 103/56 L 104/49 L Blood Pressure [Left Arm] Pulse Oximetry 99 99 98 12/12/18 04:00 12/12/18 04:57 Temperature 98.1 F Pulse Rate 18 L 110 H Respiratory Rate 18 20 Blood Pressure 91/55 L 91/55 L Blood Pressure [Left Arm] Pulse Oximetry 97 97 Oxygen Delivery Method Room Air Narrative Exam Narrative: GENERAL APPEARANCE: well developed, well nourished, in no acute distress. HEAD: Normocephalic, atraumatic, no scalp lesions. EYES: pupils equal, round, reactive to light and accommodation, sclera non-icteric, extraocular movement intact without nystagmus. EARS: normal external structures, no ear pain NOSE: sinuses non tender to percussion, no rhinorrhea ORAL CAVITY: Mucous membranes are dry without lesions or exudate, palate normal, tongue in midline. THROAT: normal, no erythema NECK/THYROID: neck supple, no jugular venous distention, no carotid bruit, no thyromegaly, trachea midline. LYMPH NODES: no cervical or supraclavicular lymphadenopathy. SKIN: warm and dry, no suspicious lesions, no rashes, good turgor. HEART: regular rate and rhythm, S1-S2 without murmur, no rubs or gallops, brisk capillary refill, no edema LUNGS: clear to auscultation bilaterally, no coarseness crackles or wheezing, no cough present CHEST: Symmetrical movement, no accessory muscle use, no pain to AP and lateral compression. ABDOMEN: Soft, no distention, no epigastric or abdominal tenderness on palpation, no guarding or peritoneal signs, no organomegaly, no flank or suprapubic tenderness, active bowel tones. EXTREMITIES: moves all extremities, strength is 5/5 and symmetrical, no deformities or joint effusions. NEUROLOGIC: AAO x4, no focal neurologic deficits, cranial nerves II-XII grossly intact , motor strength normal upper and lower extremities, sensory exam intact to light touch, hearing grossly normal to speech. PSYCH: Pleasant cooperative, briskly responsive, good eye contact, appropriate with stable behavior Objective Labs Result Diagrams: 12/12/18 06:10 12/12/18 06:10 Labs: Laboratory Results - last 24 hr 12/11/18 12/11/18 12/11/18 00:14 00:14 20:47 WBC RBC Hgb Hct MCV MCH MCHC RDW Plt Count Neut % (Auto) Lymph % (Auto) [place] % (Auto) Eos % (Auto) Baso % (Auto) Neut # (Auto) Lymph # (Auto) [place] # (Auto) Eos # (Auto) Baso # (Auto) VBG pH 7.07 L* VBG pCO2 18.2 L VBG pO2 33 L VBG HCO3 5 L VBG Total CO2 6 L VBG O2 Saturation 43 L VBG Base Excess -25.0 L Sodium Potassium Chloride Carbon Dioxide BUN Creatinine Estimated GFR BUN/Creatinine Ratio Glucose Hemoglobin A1c Lactate Calcium Phosphorus Magnesium Total Bilirubin AST ALT Alkaline Phosphatase Total Protein Albumin Globulin Albumin/Globulin Ratio Lipase Procalcitonin Serum , Qual Urine Color Yellow Urine Appearance Clear Urine pH 5.0 Ur Specific [place] 1.020 Urine Protein Trace H Urine Glucose (UA) 2+ H Urine Ketones 3+ H Urine Occult Blood 1+ H Urine Nitrate Negative Urine Bilirubin Negative Urine Urobilinogen 0.2 Ur Leukocyte Esterase Trace H Urine RBC None seen Urine WBC 1-5/hpf Ur Squamous Epith Cells 0-1 /hpf Urine Bacteria Few (2-10) H Ur Culture Indicated? Specimen cultured Nasal Screen MRSA (PCR) Urine Opiates Screen Negative Ur Oxycodone Screen Negative Urine Methadone Screen Negative Ur Barbiturates Screen Negative U Tricyclic Antidepress Negative Ur Phencyclidine Scrn Negative Ur Amphetamines Screen Negative U Methamphetamines Scrn Negative Ur MDMA Scrn (Ecstasy) Negative U Benzodiazepines Scrn Negative Urine Cocaine Screen Negative U Marijuana (THC) Screen Negative Ethyl Alcohol Ketones 12/11/18 12/11/18 12/11/18 20:54 20:54 20:54 WBC 11.4 H RBC 5.24 H Hgb 16.5 H Hct 49.9 H MCV 95.3 MCH 31.5 MCHC 33.0 RDW 13.1 Plt Count 367 Neut % (Auto) 64.2 Lymph % (Auto) 28.9 [place] % (Auto) 5.7 Eos % (Auto) 0.2 L Baso % (Auto) 1.0 Neut # (Auto) 7300 H Lymph # (Auto) 3300 [place] # (Auto) 600 Eos # (Auto) 0 Baso # (Auto) 100 VBG pH VBG pCO2 VBG pO2 VBG HCO3 VBG Total CO2 VBG O2 Saturation VBG Base Excess Sodium 138 Potassium 4.4 Chloride 105 Carbon Dioxide 6 L* BUN 16 Creatinine 1.00 Estimated GFR > 60.0 BUN/Creatinine Ratio 16.0 Glucose 473 H Hemoglobin A1c Lactate Calcium 9.8 Phosphorus 4.4 Magnesium 2.0 Total Bilirubin 0.6 AST 14 ALT 11 Alkaline Phosphatase 169 H Total Protein 8.1 Albumin 4.7 Globulin 3.4 Albumin/Globulin Ratio 1.4 Lipase 148 Procalcitonin < 0.05 Serum , Qual Negative Urine Color Urine Appearance Urine pH Ur Specific [place] Urine Protein Urine Glucose (UA) Urine Ketones Urine Occult Blood Urine Nitrate Urine Bilirubin Urine Urobilinogen Ur Leukocyte Esterase Urine RBC Urine WBC Ur Squamous Epith Cells Urine Bacteria Ur Culture Indicated? Nasal Screen MRSA (PCR) Urine Opiates Screen Ur Oxycodone Screen Urine Methadone Screen Ur Barbiturates Screen U Tricyclic Antidepress Ur Phencyclidine Scrn Ur Amphetamines Screen U Methamphetamines Scrn Ur MDMA Scrn (Ecstasy) U Benzodiazepines Scrn Urine Cocaine Screen U Marijuana (THC) Screen Ethyl Alcohol < 10 Ketones 17.3 H 12/11/18 12/11/18 12/11/18 20:54 20:54 23:30 WBC RBC Hgb Hct MCV MCH MCHC RDW Plt Count Neut % (Auto) Lymph % (Auto) [place] % (Auto) Eos % (Auto) Baso % (Auto) Neut # (Auto) Lymph # (Auto) [place] # (Auto) Eos # (Auto) Baso # (Auto) VBG pH VBG pCO2 VBG pO2 VBG HCO3 VBG Total CO2 VBG O2 Saturation VBG Base Excess Sodium Potassium Chloride Carbon Dioxide BUN Creatinine Estimated GFR BUN/Creatinine Ratio Glucose Hemoglobin A1c > 14.0 H Lactate 1.0 Calcium Phosphorus Magnesium Total Bilirubin AST ALT Alkaline Phosphatase Total Protein Albumin Globulin Albumin/Globulin Ratio Lipase Procalcitonin Serum , Qual Urine Color Urine Appearance Urine pH Ur Specific [place] Urine Protein Urine Glucose (UA) Urine Ketones Urine Occult Blood Urine Nitrate Urine Bilirubin Urine Urobilinogen Ur Leukocyte Esterase Urine RBC Urine WBC Ur Squamous Epith Cells Urine Bacteria Ur Culture Indicated? Nasal Screen MRSA (PCR) Negative for mrsa Urine Opiates Screen Ur Oxycodone Screen Urine Methadone Screen Ur Barbiturates Screen U Tricyclic Antidepress Ur Phencyclidine Scrn Ur Amphetamines Screen U Methamphetamines Scrn Ur MDMA Scrn (Ecstasy) U Benzodiazepines Scrn Urine Cocaine Screen U Marijuana (THC) Screen Ethyl Alcohol Ketones 12/12/18 02:00 WBC RBC Hgb Hct MCV MCH MCHC RDW Plt Count Neut % (Auto) Lymph % (Auto) [place] % (Auto) Eos % (Auto) Baso % (Auto) Neut # (Auto) Lymph # (Auto) [place] # (Auto) Eos # (Auto) Baso # (Auto) VBG pH VBG pCO2 VBG pO2 VBG HCO3 VBG Total CO2 VBG O2 Saturation VBG Base Excess Sodium 142 Potassium 3.6 Chloride 114 H Carbon Dioxide 9 L* BUN 14 Creatinine 0.80 Estimated GFR > 60.0 BUN/Creatinine Ratio 17.5 Glucose 176 H D Hemoglobin A1c Lactate Calcium 8.7 Phosphorus 2.4 L D Magnesium 1.6 Total Bilirubin AST ALT Alkaline Phosphatase Total Protein Albumin Globulin Albumin/Globulin Ratio Lipase Procalcitonin Serum , Qual Urine Color Urine Appearance Urine pH Ur Specific [place] Urine Protein Urine Glucose (UA) Urine Ketones Urine Occult Blood Urine Nitrate Urine Bilirubin Urine Urobilinogen Ur Leukocyte Esterase Urine RBC Urine WBC Ur Squamous Epith Cells Urine Bacteria Ur Culture Indicated? Nasal Screen MRSA (PCR) Urine Opiates Screen Ur Oxycodone Screen Urine Methadone Screen Ur Barbiturates Screen U Tricyclic Antidepress Ur Phencyclidine Scrn Ur Amphetamines Screen U Methamphetamines Scrn Ur MDMA Scrn (Ecstasy) U Benzodiazepines Scrn Urine Cocaine Screen U Marijuana (THC) Screen Ethyl Alcohol Ketones Assessment & Plan Assessment & Plan narrative: This 28-year-old female who presents to the hospital for nausea with body aches and diabetic ketoacidosis with no identified infective etiology. 1. Acute diabetic ketoacidosis, present on admission. -patient acknowledges dietary indiscretions as well as self management of insulin. No source of infection identified with normal white count normal procalcitonin normal lactic acid. -DKA protocol with insulin drip, fluid replacement with normal saline transitioning to half-normal saline and then D5/0.45% saline saline when blood sugars less than 250. -Monitor electrolytes every 4 hours until anion gap closes, replete as needed 2. Acute anion gap metabolic acidosis, present on admission. -VBG demonstrated: PH 7.07, PO2 18.2, PO2 33, HC03 5, base excess -25 -Continue to treat DKA, no identified underlying cause other than noncompliance and dietary indiscretion. 3. Medical noncompliance, active -reinforce need for routine blood sugar checks, corrected insulin management and appropriate diet. 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 The patient is admitted to the hospital as an inpatient to ICU related to severity of her symptoms and need for IV therapy and frequency of interventions. She is admitted as an inpatient with expected length of stay to be greater than 2 midnights. Scores GCS [place] coma scale eye opening: Spontaneous Alex coma scale verbal response: Orientated [place] coma scale motor response: Obey commands [place] coma scale total score: 15
[2018-12-12 06:23] LABS: Add Manual Diff / Slide Review NO; Basophils Absolute Auto 100 /uL (0-100); Basophils Percent Auto 0.8 % (0-2); Eosinophils Absolute Auto 0 /uL (0-450); Eosinophils Percent Auto 0.3 % (2-4); Hematocrit 38.5 % (36-46); Hemoglobin 13.3 g/dL (12.0-16.0); Lymphocytes Absolute Auto 2900 /uL (1100-4500); Lymphocytes Percent Auto 27.4 % (25-40); Mean Corpuscular HGB Conc 34.5 % (30-36); Mean Corpuscular Hemoglobin 31.7 PG (26-34); Mean Corpuscular Volume 91.9 fL (80-100); Monocytes Absolute Auto 1000 /uL (0-900); Monocytes Percent Auto 9.3 % (3-14); Neutrophils Absolute Auto 6500 /uL (1500-7000); Neutrophils Percent Auto 62.2 % (50-75); Platelet Count 267 X10^3/uL (150-400); Red Blood Cell Count 4.19 X10^6/uL (4.0-5.2); Red Cell Distribution Width 12.8 % (11.6-14.8); White Blood Cell Count 10.5 X10^3/uL (4.5-11.0)
[2018-12-12 06:34] LABS: BUN Creatinine Ratio 18.6 (6-22); Blood Urea Nitrogen 13 mg/dL (7-17); Calcium 8.5 mg/dL (8.4-10.2); Carbon Dioxide 14 mmol/L (22-32); Chloride 117 mmol/L (98-107); Estimated Glomerular Filt Rate > 60.0 mL/min (>60); Glucose 149 mg/dL (70-100); HEMOLYSIS < 15 (0-50); Magnesium 1.6 mg/dL (1.6-2.3); Phosphorous 2.2 mg/dL (2.5-4.5); Sodium 140 mmol/L (137-145)
[2018-12-12] MEDS: INSULIN DEGLUDEC 30 UNIT SUBCUT (08:00)
[2018-12-12] MEDS: ACETAMINOPHEN 325 MG TABLET 650 MG PO (08:01)
--- NOTE | 2018-12-12 10:05 | P.DS_ITS ---
History of Present Illness Date Patient Seen: 12/12/18 Chief complaint: NAUSEA, DIABETIC Narrative: Written by Julio Cesar COLES: Ms. Sarabjit Jimenes is a 28-year-old female patient with a history significant for type 1 diabetes, migraines, irregular menstruation and prior pyelonephritis who presents to the ER with complaints of nausea without vomiting stating she is in DKA. Patient is a known type 1 diabetic with multiple admissions for DKA. She states her symptoms began today with nausea, irritability, body aches but no complaints of gastroparesis. The patient states she ate a pizza last night and took extra insulin but has been judging her insulin dose more on how she feels. The patient denies recent illness, fever chills headaches or dizziness. She denies nasal congestion or sore throat. She reports no chest pain palpitations, shortness of breath cough or wheezing. She has had no abdominal pain but has had nausea without vomiting. No diarrhea constipation. She denies urinary frequency urgency or burning and no hematuria. She has regular menstrual period with a last menstrual period being 2 months ago now control. Arrived arrival in the ER the patient was afebrile with temperature 97.6?, heart rate of 134, blood pressure 145/79, respirations of 15 saturating 100% on room air. Laboratory analysis finds a white count of 11.4, hemoglobin was 16.5 and hematocrit of 49.9 with platelets of 369. Her chemistries are notable for a potassium of 4.4, magnesium 2.0 and a phos of 4.4. Her CO level is 6 with an anion gap 26. She has her but blood sugar of 473. On VBG she has a pH of 7.07, pCO2 of 18.2, PO2 of 33, bicarb of 5 with a base deficit of -25. Her lactic acid is 1.0 and procalcitonin is negative at less than 0.05. Her serum test is negative. Discharge Providers Date of admission: 12/11/18 22:32 Discharge Date: 12/12/18 Consults: 12/11/18 22:29 Consult to Dietitian, Adult Routine Comment: Reason For Exam: Diabetic with recurrent DKA Consult to Discharge Planning Routine Comment: 12/11/18 22:32 Consult to Bar Captain Routine Comment: diabetic non complience, no PCP 12/11/18 23:25 Consult to Dietitian, Adult Routine Comment: brittle diabetic Reason For Exam: greater than 10lbs weight loss Discharge provider: Susy Vargas DO Summary Discharge Diagnosis: 1. Acute DKA with diabetes mellitus type 1, chronic, present on admission. Resolved. 2. Acute anion gap metabolic acidosis, present on admission. Resolved. 3. Medical noncompliance, present on admission. Ongoing. Hospital Course: Sarabjit Jimenes is a 28-year-old female patient with a history significant for type 1 diabetes, migraines, irregular menstruation and prior pyelonephritis who presented to the ED with complaints of nausea without vomiting stating she is in DKA. 1. Acute DKA with diabetes mellitus type 1, chronic, present on admission. Resolved. -Hemoglobin A1c >14% on 07/03/2018 reflective of poor glycemic control likely due to medical non-compliance. -Patient acknowledges dietary indiscretions as well as self management of insulin. No source of infection identified with normal white count normal procalcitonin normal lactic acid. -Initiated DKA protocol with insulin gtt, fluid replacement with normal saline transitioning to 0.45% normal saline and then D5 0.45% normal saline until when blood glucose less than 250, and monitoring of blood glucose and electrolytes every 4 hours until anion gap closes with repletion as needed. Transitioned off insulin gtt and restarted home Tresiba increased from 30 to 40 units daily, Humalog 3 times daily with meals based on medium dose correctional scale (supplied medium dose correctional scale). -Scheduled close follow-up with outpatient at her endocrinology with new provider due to previous provider leaving. Of note, patient has no showed and canceled 3 times and provider allowed for follow-up on a last time basis if she doesnt show. 2. Acute anion gap metabolic acidosis, present on admission. Resolved. -VBG demonstrated: PH 7.07, PO2 18.2, PO2 33, HC03 5, base excess -25 -Continued to treat DKA as above, no identified underlying cause other than noncompliance and dietary indiscretion. 3. Medical noncompliance, present on admission. Ongoing. -Reinforced need for routine blood glucose checks, corrected insulin management and appropriate diet. -Dietitian consulted to re-educate and reinforce dietary management. Appreciate recs. -MANAGER RETAIL SALES consulted, patient currently without PCP or dry wall sprayer and provided r esources and appointments. Exam Vital Signs (past 8 hours): - 12/12/18 07:00 12/12/18 08:00 12/12/18 09:00 Temperature 99.1 F Pulse Rate 100 H 99 H 95 H Respiratory Rate 16 15 16 Blood Pressure 95/50 L 118/66 110/67 Pulse Oximetry 97 99 99 12/12/18 10:00 12/12/18 11:00 12/12/18 12:30 Temperature 99.6 F Pulse Rate 99 H 97 H 97 H Respiratory Rate 15 15 14 Blood Pressure 110/67 105/57 L 112/62 Pulse Oximetry 96 97 98 Oxygen Delivery Method Room Air Oxygen Flow Rate 0 Narrative Exam Narrative: General: Young female lying in bed and in no acute distress, well-developed, well-nourished, appropriately interactive. HEENT: Normocephalic, atraumatic. External ears without defect. Pupils equal, round, and reactive to light. Anicteric sclerae, moist conjunctivae, and no lid lag. Bilateral upper eyelid swelling without conjunctival injection. Neck: Supple with full range of motion. No lymphadenopathy or thyromegaly. Cardiovascular: Regular rhythm and rate without murmurs, rubs, or gallops appreciated. Pulmonary: Clear to auscultation bilaterally without crackles, wheezes, or rhonchi. Normal respiratory effort without use of accessory muscles. Abdomen: Soft, bowel sounds present, no tenderness to palpation, nondistended. No hepatosplenomegaly or masses appreciated. No guarding. Extremities: No clubbing, cyanosis, or edema. Skin: Normal temperature, turgor, and texture. Neurological: Cranial nerves grossly intact. Psychiatric: Significantly more depressed mood and flat affect. Alert and oriented to person, place, and time. Objective Labs Result Diagrams: 12/12/18 06:10 12/12/18 10:14 Labs: Laboratory Results - last 24 hr 12/11/18 12/11/18 12/11/18 00:14 00:14 20:47 WBC RBC Hgb Hct MCV MCH MCHC RDW Plt Count Neut % (Auto) Lymph % (Auto) [place] % (Auto) Eos % (Auto) Baso % (Auto) Neut # (Auto) Lymph # (Auto) [place] # (Auto) Eos # (Auto) Baso # (Auto) VBG pH 7.07 L* VBG pCO2 18.2 L VBG pO2 33 L VBG HCO3 5 L VBG Total CO2 6 L VBG O2 Saturation 43 L VBG Base Excess -25.0 L Sodium Potassium Chloride Carbon Dioxide BUN Creatinine Estimated GFR BUN/Creatinine Ratio Glucose Hemoglobin A1c Lactate Calcium Phosphorus Magnesium Total Bilirubin AST ALT Alkaline Phosphatase Total Protein Albumin Globulin Albumin/Globulin Ratio Lipase Procalcitonin Serum , Qual Urine Color Yellow Urine Appearance Clear Urine pH 5.0 Ur Specific [place] 1.020 Urine Protein Trace H Urine Glucose (UA) 2+ H Urine Ketones 3+ H Urine Occult Blood 1+ H Urine Nitrate Negative Urine Bilirubin Negative Urine Urobilinogen 0.2 Ur Leukocyte Esterase Trace H Urine RBC None seen Urine WBC 1-5/hpf Ur Squamous Epith Cells 0-1 /hpf Urine Bacteria Few (2-10) H Ur Culture Indicated? Specimen cultured Nasal Screen MRSA (PCR) Urine Opiates Screen Negative Ur Oxycodone Screen Negative Urine Methadone Screen Negative Ur Barbiturates Screen Negative U Tricyclic Antidepress Negative Ur Phencyclidine Scrn Negative Ur Amphetamines Screen Negative U Methamphetamines Scrn Negative Ur MDMA Scrn (Ecstasy) Negative U Benzodiazepines Scrn Negative Urine Cocaine Screen Negative U Marijuana (THC) Screen Negative Ethyl Alcohol Ketones 12/11/18 12/11/18 12/11/18 20:54 20:54 20:54 WBC 11.4 H RBC 5.24 H Hgb 16.5 H Hct 49.9 H MCV 95.3 MCH 31.5 MCHC 33.0 RDW 13.1 Plt Count 367 Neut % (Auto) 64.2 Lymph % (Auto) 28.9 [place] % (Auto) 5.7 Eos % (Auto) 0.2 L Baso % (Auto) 1.0 Neut # (Auto) 7300 H Lymph # (Auto) 3300 [place] # (Auto) 600 Eos # (Auto) 0 Baso # (Auto) 100 VBG pH VBG pCO2 VBG pO2 VBG HCO3 VBG Total CO2 VBG O2 Saturation VBG Base Excess Sodium 138 Potassium 4.4 Chloride 105 Carbon Dioxide 6 L* BUN 16 Creatinine 1.00 Estimated GFR > 60.0 BUN/Creatinine Ratio 16.0 Glucose 473 H Hemoglobin A1c Lactate Calcium 9.8 Phosphorus 4.4 Magnesium 2.0 Total Bilirubin 0.6 AST 14 ALT 11 Alkaline Phosphatase 169 H Total Protein 8.1 Albumin 4.7 Globulin 3.4 Albumin/Globulin Ratio 1.4 Lipase 148 Procalcitonin < 0.05 Serum , Qual Negative Urine Color Urine Appearance Urine pH Ur Specific [place] Urine Protein Urine Glucose (UA) Urine Ketones Urine Occult Blood Urine Nitrate Urine Bilirubin Urine Urobilinogen Ur Leukocyte Esterase Urine RBC Urine WBC Ur Squamous Epith Cells Urine Bacteria Ur Culture Indicated? Nasal Screen MRSA (PCR) Urine Opiates Screen Ur Oxycodone Screen Urine Methadone Screen Ur Barbiturates Screen U Tricyclic Antidepress Ur Phencyclidine Scrn Ur Amphetamines Screen U Methamphetamines Scrn Ur MDMA Scrn (Ecstasy) U Benzodiazepines Scrn Urine Cocaine Screen U Marijuana (THC) Screen Ethyl Alcohol < 10 Ketones 17.3 H 12/11/18 12/11/18 12/11/18 20:54 20:54 23:30 WBC RBC Hgb Hct MCV MCH MCHC RDW Plt Count Neut % (Auto) Lymph % (Auto) [place] % (Auto) Eos % (Auto) Baso % (Auto) Neut # (Auto) Lymph # (Auto) [place] # (Auto) Eos # (Auto) Baso # (Auto) VBG pH VBG pCO2 VBG pO2 VBG HCO3 VBG Total CO2 VBG O2 Saturation VBG Base Excess Sodium Potassium Chloride Carbon Dioxide BUN Creatinine Estimated GFR BUN/Creatinine Ratio Glucose Hemoglobin A1c > 14.0 H Lactate 1.0 Calcium Phosphorus Magnesium Total Bilirubin AST ALT Alkaline Phosphatase Total Protein Albumin Globulin Albumin/Globulin Ratio Lipase Procalcitonin Serum , Qual Urine Color Urine Appearance Urine pH Ur Specific [place] Urine Protein Urine Glucose (UA) Urine Ketones Urine Occult Blood Urine Nitrate Urine Bilirubin Urine Urobilinogen Ur Leukocyte Esterase Urine RBC Urine WBC Ur Squamous Epith Cells Urine Bacteria Ur Culture Indicated? Nasal Screen MRSA (PCR) Negative for mrsa Urine Opiates Screen Ur Oxycodone Screen Urine Methadone Screen Ur Barbiturates Screen U Tricyclic Antidepress Ur Phencyclidine Scrn Ur Amphetamines Screen U Methamphetamines Scrn Ur MDMA Scrn (Ecstasy) U Benzodiazepines Scrn Urine Cocaine Screen U Marijuana (THC) Screen Ethyl Alcohol Ketones 12/12/18 12/12/18 12/12/18 02:00 06:10 06:10 WBC 10.5 RBC 4.19 Hgb 13.3 Hct 38.5 MCV 91.9 D MCH 31.7 MCHC 34.5 RDW 12.8 Plt Count 267 Neut % (Auto) 62.2 Lymph % (Auto) 27.4 [place] % (Auto) 9.3 Eos % (Auto) 0.3 L Baso % (Auto) 0.8 Neut # (Auto) 6500 Lymph # (Auto) 2900 [place] # (Auto) 1000 H Eos # (Auto) 0 Baso # (Auto) 100 VBG pH VBG pCO2 VBG pO2 VBG HCO3 VBG Total CO2 VBG O2 Saturation VBG Base Excess Sodium 142 140 Potassium 3.6 4.0 Chloride 114 H 117 H Carbon Dioxide 9 L* 14 L BUN 14 13 Creatinine 0.80 0.70 Estimated GFR > 60.0 > 60.0 BUN/Creatinine Ratio 17.5 18.6 Glucose 176 H D 149 H Hemoglobin A1c Lactate Calcium 8.7 8.5 Phosphorus 2.4 L D Magnesium 1.6 Total Bilirubin AST ALT Alkaline Phosphatase Total Protein Albumin Globulin Albumin/Globulin Ratio Lipase Procalcitonin Serum , Qual Urine Color Urine Appearance Urine pH Ur Specific [place] Urine Protein Urine Glucose (UA) Urine Ketones Urine Occult Blood Urine Nitrate Urine Bilirubin Urine Urobilinogen Ur Leukocyte Esterase Urine RBC Urine WBC Ur Squamous Epith Cells Urine Bacteria Ur Culture Indicated? Nasal Screen MRSA (PCR) Urine Opiates Screen Ur Oxycodone Screen Urine Methadone Screen Ur Barbiturates Screen U Tricyclic Antidepress Ur Phencyclidine Scrn Ur Amphetamines Screen U Methamphetamines Scrn Ur MDMA Scrn (Ecstasy) U Benzodiazepines Scrn Urine Cocaine Screen U Marijuana (THC) Screen Ethyl Alcohol Ketones 12/12/18 12/12/18 06:10 10:14 WBC RBC Hgb Hct MCV MCH MCHC RDW Plt Count Neut % (Auto) Lymph % (Auto) [place] % (Auto) Eos % (Auto) Baso % (Auto) Neut # (Auto) Lymph # (Auto) [place] # (Auto) Eos # (Auto) Baso # (Auto) VBG pH VBG pCO2 VBG pO2 VBG HCO3 VBG Total CO2 VBG O2 Saturation VBG Base Excess Sodium 140 Potassium 3.7 Chloride 117 H Carbon Dioxide 14 L BUN 12 Creatinine 0.80 Estimated GFR > 60.0 BUN/Creatinine Ratio 15.0 Glucose 88 Hemoglobin A1c Lactate Calcium 8.4 Phosphorus 2.2 L Magnesium 1.6 Total Bilirubin AST ALT Alkaline Phosphatase Total Protein Albumin Globulin Albumin/Globulin Ratio Lipase Procalcitonin Serum , Qual Urine Color Urine Appearance Urine pH Ur Specific [place] Urine Protein Urine Glucose (UA) Urine Ketones Urine Occult Blood Urine Nitrate Urine Bilirubin Urine Urobilinogen Ur Leukocyte Esterase Urine RBC Urine WBC Ur Squamous Epith Cells Urine Bacteria Ur Culture Indicated? Nasal Screen MRSA (PCR) Urine Opiates Screen Ur Oxycodone Screen Urine Methadone Screen Ur Barbiturates Screen U Tricyclic Antidepress Ur Phencyclidine Scrn Ur Amphetamines Screen U Methamphetamines Scrn Ur MDMA Scrn (Ecstasy) U Benzodiazepines Scrn Urine Cocaine Screen U Marijuana (THC) Screen Ethyl Alcohol Ketones Discharge Plan Discharge Plan Patient Disposition: Home Discharge comment: Your being discharged home. Please keep your scheduled appointments at [facility] Endocrinology. You have been provided a medium dose correctional scale. Please keep track of your blood glucose and keep a log of your measurements to take to your appointments. You should take a fasting blood glucose (nothing to eat or drink) and 3 measurements 2 hours after meals (breakfast, lunch, and dinner) and then use your medium dose correctional scale to correct using your Humalog. Continue your Tresiba 30 units daily (take this in the morning right when you wake up) and this may need to be divided into 2 separate doses and or the dose increased per your providers either your primary care physician or your dry wall sprayer. Your goal hemoglobin A1c should be 7.0%. Your current A1c is greater than 14%. An insulin pump would be ideal and help to have the best glycemic control. You have been provided a prescription for Tresiba 40 units daily to take first thing when you wake up prior to breakfast and Humalog to use as correctional insulin and take 2 hours after meals with dose based on medium dose correctional scale. Discharge Med Rec/Prescriptions Prescriptions: New insulin lispro [Humalog KwikPen Insulin] 100 unit/mL insulin pen 5 unit SUBCUT TID Qty: 15 RF: 2 glucose 4 gram tablet,chewable 4 gram PO Q15M PRN (Reason: hypoglycemia) Qty: 30 RF: 0 Changed Tresiba FlexTouch U-100 100 unit/mL (3 mL) Insulin Pen 40 unit Sub-Q DAILY Qty: 15 RF: 2 Follow up/Referrals: DR CHOWDHURY-(SRC) JAN 08 @ 2:25 PM [Other] DR. SCOTT: Dec @ 3:15 PM [Other] Provider Discharge Instructions Diet: Diet as Tolerated and Carb-consistent/Diabetic Activity: Activity as tolerated Visit Report/Discharge Packet Instructions: DI for Diabetes Type 1 -- Adult Discharges patient from system. Discharge Date/Time: 12/12/18 15:00
[2018-12-12 10:34] LABS: HEMOLYSIS < 15 (0-50); Sodium 140 mmol/L (137-145)
[2018-12-12 10:37] LABS: Blood Urea Nitrogen 12 mg/dL (7-17); Calcium 8.4 mg/dL (8.4-10.2); Carbon Dioxide 14 mmol/L (22-32); Chloride 117 mmol/L (98-107); Estimated Glomerular Filt Rate > 60.0 mL/min (>60); Glucose 88 mg/dL (70-100); Potassium 3.7 mmol/L (3.4-5.1)
--- NOTE | 2018-12-12 10:51 | CM.IDA ---
Spoke with patient about her immanent discharge to assess any needs that need to be met prior to going home. Patient reports no barriers to her going home. Patient likes Afia Hines PROJECT FINANCE ANALYST. States he does a good job by her and pt. feels he is knowledgeable and accessible about her condition. She is not as happy with her PCP and wishes us to assist her to find someone who has more experience caring for DM1 patients. Report to Jodee ANDRADE who will provide her with PCP resources.
--- NOTE | 2018-12-12 14:00 | PC.NURSE ---
called for the third time to [facility] to schedule follow up appts with resident clinic and endcrinology- unable to get appt. any earlier than Jan 07 - they state they are no longer taking walk in appts
--- NOTE | 2018-12-12 14:36 | DIET.PN ---
Dietary Progress Note Assessment: Ms. Jimenes is a 28 yof referred for Diabetes w/ recurrent DKA. Pt reports DKA every 6-12 mo. She was previously under the care of Dr. Leonidas Oreilly, handicapper harness racing with [facility]. She has experienced significant weight loss over the last few months. She states she has had prior formal diabetes education in the past, but admits she does not follow any regimented dietary plan. She is picky and only eats small portions at a time. Reports she knows she does not eat enough protein as she does not like red meat, seafood, and can only eat small amounts of cheese and other dairy. She admits she is not physically active and is fatigued most of the day and is very sedentary. She is currently taking 30u of Tresiba mid-day w/ meal time humalog. She reports she adjust her mealtime insulin based on how she feels. Dietary intake includes pizza, chicken nuggets, cereal, grilled cheese, etc. Dr. Vargas discussed medication management with patient in further detail. She is scheduled to meet with an handicapper harness racing mid December to follow up with further diabetes care. DX: T1DM w/ DKA Diet: CCD HT: 154.94cm WT: 50.3kg BMI: 21 Labs: HgbA1c: >14 Nutrition Diagnosis: Altered nutrition related lab values r/t impaired glucose metabolism, lack of previous exposure to accurate information aeb pt report, DX diabetes, previous diet high in refined CHO. Interventions: 1. Discussed pts current dietary patterns. Reviewed CHO counting in detail. Recommended 30g CHO per meal. List of CHO foods and servings provided. 2. Discussed importance of not skipping meals. Recommended pt aim for 3 meals/ day with snacks in between. 3. Discussed the importance of protein with meals for glucose control. Provided pt a list protein sources and discussed options for breakfast. 4. Discussed medications and management. Encouraged pt to monitor FBG as well as pre-post prandial BG. Pt could benefit from CGM and/or insulin pump. 5. Discussed importance of physical activity in helping with insulin sensitivity and increasing energy. Reviewed exercise safety including glucose ranges and when to avoid exercise. Monitoring/Evaluations: Recommended pt request referral for additional outpatient MNT or DSME/T.
--- NOTE | 2018-12-12 14:44 | PC.NURSE ---
Pt being discharged home with mother. IV removed. All belongings with patient. VSS upon discharge. DC appts made for primary care establishment and endocrinology. Pt was also told that she should do a walk in appt with [facility] instead of waiting for appt on 18AUG. Verbalized understanding of all DC instructions.
--- NOTE | 2018-12-12 15:09 | CM.SWNOTE ---
SW consult note: BUSINESS COMMUNICATIONS INSTRUCTOR met with pt and mother to provide information about primary care providers and endocrinology. Pt already has a referral made to Dr. Washington at [facility] endocrinology. BUSINESS COMMUNICATIONS INSTRUCTOR provided encouragement re: considering an insulin pump as a means to obtain tighter control and safety, and assured her that Dr. Washington is well known, and is considered a very good endo. She will also be looking into changing her insurance from [employer] to another [employer] option once open enrollment is available again. Pt was discharged shortly after this encounter.
== END 2018-12-12 15:00 | disposition home or self-care (01) | DRG 639 ==
LOC: ED 21:15 → ICU 22:42
PROVIDERS: Admitting Provider Nurse Practitioner Adult Health; Emergency Provider Emergency Medicine; Visit Provider Nurse Practitioner Adult Health
DX: E10.10 Type 1 diabetes mellitus with ketoacidosis without coma (principal); Z91.19 Patient's noncompliance with other medical treatment and regimen
CPT/HCPCS: 36415; 36591; 80048; 80053; 80305; 80320; 81001; 82009; 82805; 82962; 83036; 83605; 83690; 83735; 84100; 84145; 84703; 85025; 87040; 87086; 87797; 93005; 99283; J1170; J3480

== ENCOUNTER 2019-02-16 13:58 | Inpatient (IN) | payer MEDICAID, OTHER, SELFPAY ==
[2019-02-16] VITALS (11 sets, daily range): BP systolic 101–133; BP diastolic 48–87; PULSE 109–121; RESP 13–22; TEMP 35.9–37; O2SAT 96–100; BMI 19.8
--- NOTE | 2019-02-16 14:22 | ED_ITS ---
HPI - General Adult General Chief complaint: Diabetic Problem Stated complaint: feels Dehydrated, Nausea, Body aches, Diabetic Time Seen by Provider: 02/16/19 14:16 Source: patient Mode of arrival: Ambulatory Limitations: no limitations History of Present Illness HPI narrative: 29-year-old female who is known to this emergency department and is known to me. He is a type 1 diabetic. He has had multiple episodes of DKA. States that last night she was at her normal state health. This morning approximately 0500 hours noticed that she did not feel very well. Since then has had quite a bit of nausea and vomiting. States she feels like she is dehydrated. States that her diet has not changed however she states that it is probably not the way that it should be. Food indiscretion has been attributed to her DKA issues in the past. States that her blood sugars were greater than 200 last evening. Related Data Home Medications Medication Instructions Recorded Confirmed cholecalciferol (vitamin D3) 2,000 unit PO DAILY 02/16/19 02/16/19 [Vitamin D3] ergocalciferol (vitamin D2) 50,000 unit PO QWEEK 02/16/19 02/16/19 [Vitamin D2] glucagon (human recombinant) 1 mg SUBCUT DIRECTED 02/16/19 02/16/19 [Glucagon Emergency Kit (human)] insulin lispro [Humalog KwikPen 0 unit SUBCUT TID 02/16/19 02/16/19 Insulin] norethindrone (contraceptive) 0.35 mg PO DAILY 02/16/19 02/16/19 [[place]] Previous Rx's Medication Instructions Recorded Tresiba FlexTouch U-100 40 unit SUB-Q DAILY #15 ml 12/12/18 glucose 4 gram PO Q15M PRN #30 tab 12/12/18 Allergies Allergy/AdvReac Type Severity Reaction Status Date / Time arredondo [ARREDONDO] Allergy Intermediate Hives, Verified 02/16/19 14:14 pruritus iodine [IODINE] Allergy Intermediate rash, itchy Verified 02/16/19 14:14 morphine Allergy Intermediate Difficulty Verified 02/16/19 14:14 Breathing shellfish derived Allergy Intermediate rash Verified 02/16/19 14:14 [SHELLFISH DERIVED] adhesive [ADHESIVE] Allergy Unknown tape Verified 02/16/19 14:14 latex [LATEX] Allergy Unknown Hives Verified 02/16/19 14:14 Review of Systems Constitutional Constitutional: Reports body ache(s), Reports chills, Reports fatigue, Denies fever(s), Denies headache(s) and Reports malaise ENT Ears, Nose, Mouth, and Throat: Denies headache(s) Cardiovascular Cardiovascular: Denies chest pain, Reports rapid heart rate, Denies pedal edema and Denies dyspnea Respiratory Respiratory: Denies cough and Denies dyspnea Gastrointestinal Gastrointestinal: Reports abdominal pain, Reports nausea and Reports vomiting Genitourinary Genitourinary: Denies dysuria Musculoskeletal Musculoskeletal: Reports myalgias and Reports arthralgias Integumentary/Breasts Skin/Breast: Denies lesions and Denies rash Neurologic Neurologic: Denies confusion and Denies headache(s) Psychiatric Psychiatric: Denies confusion Endocrine Endocrine: Reports fatigue Hematologic/Lymphatic Hematologic/Lymphatic: Denies easy bleeding and Denies easy bruising Patient History Medical History DKA (diabetic ketoacidoses) (Resolved) History of pyelonephritis (Resolved) Irregular menstrual cycle (Acute) Migraine headache (Chronic) Nephrolithiasis (Resolved) Type 1 diabetes mellitus (Chronic) Surgical History History of ureter stent (Resolved) Status post laser lithotripsy of ureteral calculus (Acute) Social History household members: significant other and family Smoking Status: Never smoker alcohol intake: never alcohol intake frequency: holidays/special occasions only Substance Use Type: does not use Exam Initial Vital Signs Initial Vital Signs: Vital Signs Temperature 98.6 F 02/16/19 14:12 Pulse Rate 117 H 02/16/19 14:12 Respiratory Rate 22 02/16/19 14:12 Blood Pressure 133/87 02/16/19 14:12 Pulse Oximetry 100 02/16/19 14:12 Const General: cooperative, No acute distress and ill appearing Orientation: alert, awake and oriented x3 HENMT Head: normal to inspection and normocephalic Eyes EOM: EOM intact bilaterally Neck Neck: no meningeal signs Chest Chest: normal inspection of the chest Resp Effort & Inspection: normal respiratory effort Auscultation: clear to auscultation bilaterally Cardio Rate: tachycardic Rhythm: regular rhythm GI Inspection: non-distended Palpation: soft and tender Skin Lesions: no lesions Rashes: no rashes Neuro General: alert, awake and oriented x3 Cognition: normal cognition Speech: speech normal Extrem General: normal to inspection and capillary refill normal Psych Appearance: grossly normal and well kempt Course Orders Ordered: ED Orders 02/16/19 14:25 Venous Blood Gas Stat 02/16/19 14:35 Complete Blood Count AUTO DIFF Stat Comprehensive Metabolic Panel Stat Ketones (Beta-Hydroxybutyrate) Stat Lactate (Lactic Acid) Stat Lipase Stat Magnesium Stat Phosphorous Stat 02/16/19 14:42 EKG-12 Lead Stat 02/16/19 15:00 Test Serum,Qual Stat Procalcitonin Stat 02/16/19 15:27 Urinalysis and Microscopic Stat Urine Culture Stat Insulin Human Regular 100 unit (/ Sodium Chloride) 100 mls @ 5 mls/hr IV TITRATE BLAISE; Protocol Sodium Chloride (Normal Saline 0.9%) 1,000 mls @ 200 mls/hr IV CONT BLAISE Last Admin: 02/16/19 15:28 Dose: 200 mls/hr Documented by: SHERWIN Discontinued Medications Hydromorphone HCl (Dilaudid) 0.5 mg IV NOW ONE Stop: 02/16/19 14:28 Last Admin: 02/16/19 14:39 Dose: 0.5 mg Documented by: SHERWIN Sodium Chloride (Normal Saline 0.9%) 1,000 mls @ 1,000 mls/hr IV BOLUS ONE Stop: 02/16/19 15:15 Last Infusion: 02/16/19 15:28 Dose: 0 mls/hr Documented by: Admin: 02/16/19 14:39 Dose: 1,000 mls/hr Documented by: SHERWIN Sodium Chloride (Normal Saline 0.9%) 1,000 mls @ 150 mls/hr IV CONT BLAISE Ondansetron HCl (Zofran) 4 mg IV NOW ONE Stop: 02/16/19 14:28 Last Admin: 02/16/19 14:38 Dose: 4 mg Documented by: SHERWIN Vital Signs Vital signs: Vital Signs - 8 hr 02/16/19 14:12 02/16/19 14:32 02/16/19 15:00 Temperature 98.6 F Pulse Rate 117 H 119 H 117 H Respiratory Rate 22 21 18 Blood Pressure 133/87 Blood Pressure [Left Arm] 123/82 113/74 Pulse Oximetry 100 100 99 02/16/19 15:45 Temperature Pulse Rate 114 H Respiratory Rate 17 Blood Pressure Blood Pressure [Left Arm] 113/64 Pulse Oximetry 100 Medical Decision Making Medical Records Medical records reviewed: Yes I reviewed the patient's medical records. Lab Data Lab results reviewed: Yes I reviewed the patient's lab results. Result diagrams: 02/16/19 14:35 02/16/19 14:35 Labs: Lab Results 02/16/19 02/16/19 02/16/19 Range/Units 14:25 14:35 14:35 WBC 13.2 H (4.5-11.0) X10^3/uL RBC 4.79 (4.0-5.2) X10^6/uL Hgb 15.6 (12.0-16.0) g/dL Hct 47.3 H (36-46) % MCV 98.7 (80-100) fL MCH 32.5 (26-34) PG MCHC 32.9 (30-36) % RDW 12.5 (11.6-14.8) % Plt Count 302 (150-400) X10^3/uL Neut % (Auto) 72.0 (50-75) % Lymph % (Auto) 21.5 L (25-40) % [place] % (Auto) 5.2 (3-14) % Eos % (Auto) 0.2 L (2-4) % Baso % (Auto) 1.1 (0-2) % Neut # (Auto) 9500 H (3810-9881) /uL Lymph # (Auto) 2800 (6302-7827) /uL [place]aine # (Auto) 700 (0-900) /uL Eos # (Auto) 0 (0-450) /uL Baso # (Auto) 100 (0-100) /uL VBG pH 7.11 L* (7.33-7.43) VBG pCO2 17.6 L (45-50) mmHg VBG pO2 58 H (35-45) mmHg VBG HCO3 6 L (23-28) mmol/L VBG Total CO2 6 L (24-29) mmol/L VBG O2 Saturation 80 H (70-75) % VBG Base Excess -24.0 L (0-4) mmol/L Sodium 135 L (137-145) mmol/L Potassium 5.2 H (3.4-5.1) mmol/L Chloride 99 (98-107) mmol/L Carbon Dioxide 7 L* (22-32) mmol/L BUN 30 H (7-17) mg/dL Creatinine 1.00 (0.52-1.04) mg/dL Estimated GFR > 60.0 (>60) mL/min BUN/Creatinine Ratio 30.0 H (6-22) Glucose 620 H* (70-100) mg/dL Lactate (0.7-2.1) mmol/L Calcium 10.0 (8.4-10.2) mg/dL Phosphorus (2.5-4.5) mg/dL Magnesium 2.2 (1.6-2.3) mg/dL Total Bilirubin 0.5 (0.2-1.3) mg/dL AST 24 (14-36) IU/L ALT 23 (9-52) IU/L Alkaline Phosphatase 190 H (38-126) U/L Total Protein 8.0 (6.3-8.2) g/dL Albumin 4.8 (3.5-5.0) g/dL Globulin 3.2 (1.7-4.1) g/dL Albumin/Globulin Ratio 1.5 (1.0-2.8) Lipase 184 (23-300) U/L Procalcitonin (<0.5) ng/mL Serum , Qual (Negative) Urine Color Urine Appearance Urine pH (4.5-8.0) Ur Specific [place] (1.000-1.035) Urine Protein (Negative) Urine Glucose (UA) (Negative) g/dL Urine Ketones (NEGATIVE) Urine Occult Blood (Negative) Urine Nitrate (Negative) Urine Bilirubin (NEGATIVE) Urine Urobilinogen (0.2) E.U./dL Ur Leukocyte Esterase (NEGATIVE) Urine RBC Urine WBC Ur Squamous Epith Cells Ur Transition Epith Cell Ur Renal Epithelial Cell Calcium Oxalate Crystal Uric Acid Crystals Triple Phos Crystals Other Crystals Amorphous Sediment Urine Bacteria Hyaline Casts Granular Casts RBC Casts WBC Casts Other Casts Urine Mucus Urine Trichomonas Urine Yeast Urine Sperm Ur Culture Indicated? Micro UA Comment Ketones 14.48 H (<0.27) mmol/L 02/16/19 02/16/19 02/16/19 Range/Units 14:35 14:35 15:00 WBC (4.5-11.0) X10^3/uL RBC (4.0-5.2) X10^6/uL Hgb (12.0-16.0) g/dL Hct (36-46) % MCV (80-100) fL MCH (26-34) PG MCHC (30-36) % RDW (11.6-14.8) % Plt Count (150-400) X10^3/uL Neut % (Auto) (50-75) % Lymph % (Auto) (25-40) % [place] % (Auto) (3-14) % Eos % (Auto) (2-4) % Baso % (Auto) (0-2) % Neut # (Auto) (4285-9217) /uL Lymph # (Auto) (1199-3048) /uL [place]aine # (Auto) (0-900) /uL Eos # (Auto) (0-450) /uL Baso # (Auto) (0-100) /uL VBG pH (7.33-7.43) VBG pCO2 (45-50) mmHg VBG pO2 (35-45) mmHg VBG HCO3 (23-28) mmol/L VBG Total CO2 (24-29) mmol/L VBG O2 Saturation (70-75) % VBG Base Excess (0-4) mmol/L Sodium (137-145) mmol/L Potassium (3.4-5.1) mmol/L Chloride (98-107) mmol/L Carbon Dioxide (22-32) mmol/L BUN (7-17) mg/dL Creatinine (0.52-1.04) mg/dL Estimated GFR (>60) mL/min BUN/Creatinine Ratio (6-22) Glucose (70-100) mg/dL Lactate 1.0 (0.7-2.1) mmol/L Calcium (8.4-10.2) mg/dL Phosphorus 6.2 H (2.5-4.5) mg/dL Magnesium (1.6-2.3) mg/dL Total Bilirubin (0.2-1.3) mg/dL AST (14-36) IU/L ALT (9-52) IU/L Alkaline Phosphatase (38-126) U/L Total Protein (6.3-8.2) g/dL Albumin (3.5-5.0) g/dL Globulin (1.7-4.1) g/dL Albumin/Globulin Ratio (1.0-2.8) Lipase (23-300) U/L Procalcitonin < 0.05 (<0.5) ng/mL Serum , Qual Negative (Negative) Urine Color Urine Appearance Urine pH (4.5-8.0) Ur Specific [place] (1.000-1.035) Urine Protein (Negative) Urine Glucose (UA) (Negative) g/dL Urine Ketones (NEGATIVE) Urine Occult Blood (Negative) Urine Nitrate (Negative) Urine Bilirubin (NEGATIVE) Urine Urobilinogen (0.2) E.U./dL Ur Leukocyte Esterase (NEGATIVE) Urine RBC Urine WBC Ur Squamous Epith Cells Ur Transition Epith Cell Ur Renal Epithelial Cell Calcium Oxalate Crystal Uric Acid Crystals Triple Phos Crystals Other Crystals Amorphous Sediment Urine Bacteria Hyaline Casts Granular Casts RBC Casts WBC Casts Other Casts Urine Mucus Urine Trichomonas Urine Yeast Urine Sperm Ur Culture Indicated? Micro UA Comment Ketones (<0.27) mmol/L 02/16/19 02/16/19 Range/Units 15:16 15:27 WBC (4.5-11.0) X10^3/uL RBC (4.0-5.2) X10^6/uL Hgb (12.0-16.0) g/dL Hct (36-46) % MCV (80-100) fL MCH (26-34) PG MCHC (30-36) % RDW (11.6-14.8) % Plt Count (150-400) X10^3/uL Neut % (Auto) (50-75) % Lymph % (Auto) (25-40) % [place] % (Auto) (3-14) % Eos % (Auto) (2-4) % Baso % (Auto) (0-2) % Neut # (Auto) (3544-7493) /uL Lymph # (Auto) (2319-2854) /uL [place] # (Auto) (0-900) /uL Eos # (Auto) (0-450) /uL Baso # (Auto) (0-100) /uL VBG pH (7.33-7.43) VBG pCO2 (45-50) mmHg VBG pO2 (35-45) mmHg VBG HCO3 (23-28) mmol/L VBG Total CO2 (24-29) mmol/L VBG O2 Saturation (70-75) % VBG Base Excess (0-4) mmol/L Sodium (137-145) mmol/L Potassium (3.4-5.1) mmol/L Chloride (98-107) mmol/L Carbon Dioxide (22-32) mmol/L BUN (7-17) mg/dL Creatinine (0.52-1.04) mg/dL Estimated GFR (>60) mL/min BUN/Creatinine Ratio (6-22) Glucose (70-100) mg/dL Lactate (0.7-2.1) mmol/L Calcium (8.4-10.2) mg/dL Phosphorus (2.5-4.5) mg/dL Magnesium (1.6-2.3) mg/dL Total Bilirubin (0.2-1.3) mg/dL AST (14-36) IU/L ALT (9-52) IU/L Alkaline Phosphatase (38-126) U/L Total Protein (6.3-8.2) g/dL Albumin (3.5-5.0) g/dL Globulin (1.7-4.1) g/dL Albumin/Globulin Ratio (1.0-2.8) Lipase (23-300) U/L Procalcitonin (<0.5) ng/mL Serum , Qual (Negative) Urine Color Yellow Urine Appearance Clear Urine pH 5.0 (4.5-8.0) Ur Specific [place] 1.010 (1.000-1.035) Urine Protein Negative (Negative) Urine Glucose (UA) 1+ H (Negative) g/dL Urine Ketones 3+ H (NEGATIVE) Urine Occult Blood Negative (Negative) Urine Nitrate Negative (Negative) Urine Bilirubin Negative (NEGATIVE) Urine Urobilinogen 0.2 (0.2) E.U./dL Ur Leukocyte Esterase 1+ H (NEGATIVE) Urine RBC Cancelled 1-5/hpf Urine WBC Cancelled 1-5/hpf Ur Squamous Epith Cells Cancelled 0-1 /hpf Ur Transition Epith Cell Cancelled Ur Renal Epithelial Cell Cancelled Calcium Oxalate Crystal Cancelled Uric Acid Crystals Cancelled Triple Phos Crystals Cancelled Other Crystals Cancelled Amorphous Sediment Cancelled Urine Bacteria Cancelled Few (2-10) H Hyaline Casts Cancelled Granular Casts Cancelled RBC Casts Cancelled WBC Casts Cancelled Other Casts Cancelled Urine Mucus Cancelled Urine Trichomonas Cancelled Urine Yeast Cancelled Urine Sperm Cancelled Ur Culture Indicated? Cancelled Specimen cultured Micro UA Comment Cancelled Ketones (<0.27) mmol/L Point of Care Testing Glucose POC 465 Point of care testing: Point of Care Testing Glucose POC 465 ECG Data Attestation: I personally reviewed and interpreted this ECG as follows: Prior ECG tracings: not available for review Interpretation: Sinus tachycardia Ventricular rate is 117 Normal axis Normal QRS Normal QTC No ST T wave changes MDM Narrative Medical decision making narrative: Patient in DKA. PH is 7.1. Potassium greater than 5. Anion gap 29. Most likely source of DKA is her dietary indiscretion. She has had this in the past. Patient denies any abscesses which she potentially has had in the past. Patient was given fluids. Insulin drip started. Discussed the case with Dr. Vargas on-call for Internal Medicine who will admit for further evaluation and treatment. Discussed the admission with the patient who expressed understanding and agreement. Critical Care Time Critical Care Time Critical Care Time: Yes Total Critical Care Time: 35 Attestation: The high probability of a clinically significant, sudden or life threatening deterioration of the endocrine system(s) required my full and direct attention, intervention and personal management. The aggregate critical care time was 35 minutes. This time is in addition to time spent performing reported procedures but includes the following: [] Data Review and interpretation [] Patient assessment and monitoring of vital signs [] Documentation [] Medication orders and management Discharge Plan Departure Patient Disposition: Admitted As Inpatient Clinical Impression: DKA (diabetic ketoacidoses) Qualifiers: Diabetes mellitus type: type 1 Diabetes mellitus complication detail: without coma Qualified Code(s): E10.10 - Type 1 diabetes mellitus with ketoacidosis wit hout coma Admit Date/Time: 02/16/19 15:56 Admit Provider: Susy Vargas
[2019-02-16] MEDS: ONDANSETRON 4 MG/2 ML INJ IV (14:38)
[2019-02-16] MEDS: SODIUM CHLORIDE 0.9% 1,000 ML 1000 ML IV (14:39)
[2019-02-16] MEDS: HYDROMORPHONE 0.5 MG INJ IV (14:39)
[2019-02-16 14:45] LABS: Add Manual Diff / Slide Review NO; Basophils Absolute Auto 100 /uL (0-100); Basophils Percent Auto 1.1 % (0-2); Eosinophils Absolute Auto 0 /uL (0-450); Eosinophils Percent Auto 0.2 % (2-4); Hematocrit 47.3 % (36-46); Hemoglobin 15.6 g/dL (12.0-16.0); Lymphocytes Absolute Auto 2800 /uL (1100-4500); Lymphocytes Percent Auto 21.5 % (25-40); Mean Corpuscular HGB Conc 32.9 % (30-36); Mean Corpuscular Hemoglobin 32.5 PG (26-34); Mean Corpuscular Volume 98.7 fL (80-100); Monocytes Absolute Auto 700 /uL (0-900); Monocytes Percent Auto 5.2 % (3-14); Neutrophils Absolute Auto 9500 /uL (1500-7000); Platelet Count 302 X10^3/uL (150-400); Red Blood Cell Count 4.79 X10^6/uL (4.0-5.2); Red Cell Distribution Width 12.5 % (11.6-14.8); White Blood Cell Count 13.2 X10^3/uL (4.5-11.0)
--- NOTE | 2019-02-16 14:50 | PC.NURSE ---
Pt states she does not adhere to a diabetic diet, her glucose at home usually runs > 200 and she does not check ketones. Has had multiple admissions for DKA
[2019-02-16 15:00] LABS: pH VBG 7.11 (7.33-7.43)
[2019-02-16 15:01] LABS: HCO3 VBG 6 mmol/L (23-28); Oxygen Saturation VBG 80 % (70-75); PCO2 VBG 17.6 mmHg (45-50); PO2 VBG 58 mmHg (35-45); Total CO2 VBG 6 mmol/L (24-29)
[2019-02-16 15:03] LABS: Alanine Aminotransferase 23 IU/L (9-52); Albumin 4.8 g/dL (3.5-5.0); Albumin Globulin Ratio 1.5 (1.0-2.8); Alkaline Phosphatase 190 U/L (38-126); Aspartate Aminotransferase 24 IU/L (14-36); Bilirubin Total 0.5 mg/dL (0.2-1.3); Blood Urea Nitrogen 30 mg/dL (7-17); Chloride 99 mmol/L (98-107); Estimated Glomerular Filt Rate > 60.0 mL/min (>60); Globulin 3.2 g/dL (1.7-4.1); Lipase 184 U/L (23-300); Magnesium 2.2 mg/dL (1.6-2.3); Potassium 5.2 mmol/L (3.4-5.1); Sodium 135 mmol/L (137-145)
[2019-02-16 15:08] LABS: Phosphorous 6.2 mg/dL (2.5-4.5)
[2019-02-16 15:09] LABS: Pregnancy Test Serum,Qual Negative (Negative)
[2019-02-16 15:17] LABS: Carbon Dioxide 7 mmol/L (22-32); Glucose 620 mg/dL (70-100)
[2019-02-16] MEDS: SODIUM CHLORIDE 0.9% 1,000 ML 200 ML IV (15:28)
[2019-02-16 15:29] LABS: HEMOLYSIS 28 (0-50); Ketones (Beta-Hydroxybutyrate) 14.48 mmol/L (<0.27)
[2019-02-16 15:30] LABS: Appearance Urine UA CLEAR; Bilirubin Urine UA NEGATIVE (NEGATIVE); Color Urine UA YELLOW; Glucose Urine UA 1+ g/dL (Negative); Ketones Urine UA 3+ (NEGATIVE); Leukocyte Esterase Urine UA 1+ (NEGATIVE); Nitrite Urine UA NEGATIVE (Negative); Occult Blood Urine UA NEGATIVE (Negative); Protein Urine UA NEGATIVE (Negative); Urobilinogen Urine UA 0.2 E.U./dL (0.2)
[2019-02-16 15:41] LABS: Procalcitonin < 0.05 ng/mL (<0.5)
[2019-02-16 15:45] LABS: Bacteria Urine Few (2-10); Culture Indicated Urine Specimen Cultured; RBC Urine 1-5/HPF (0-5/HPF); Squamous Epithelial Cell Urine 0-1 /HPF (0-5/HPF); WBC Urine 1-5/HPF (0-5/HPF)
[2019-02-16] MEDS: INSULIN REGULAR, HUMAN 100 UNIT in SODIUM CHLORIDE 0.9% 100 ML IV (16:00)
--- NOTE | 2019-02-16 18:50 | PC.NURSE ---
Pt admitted to ICU from ER, pt arrives on 5 units/hr with BG 405. NS running at 200 ml/hr. Pt is alert and oriented. Denies pain, nausea or other discomfort. Pt was given dilaudid and zofran in ER. Pt settled into bed and is resting comfortably. Awaiting MD orders.
[2019-02-16 19:13] LABS: BUN Creatinine Ratio 31.1 (6-22); Blood Urea Nitrogen 28 mg/dL (7-17); Calcium 9.3 mg/dL (8.4-10.2); Carbon Dioxide 10 mmol/L (22-32); Chloride 108 mmol/L (98-107); Estimated Glomerular Filt Rate > 60.0 mL/min (>60); Glucose 298 mg/dL (70-100); HEMOLYSIS < 15 (0-50); Potassium 4.6 mmol/L (3.4-5.1); Sodium 140 mmol/L (137-145)
[2019-02-16] MEDS: DEXTROSE 5%-0.45% NS 1,000 ML 150 ML IV (20:05)
[2019-02-16] MEDS: SODIUM CHLORIDE 0.45% 1,000 ML 250 ML IV (20:05)
[2019-02-16] MEDS: HEPARIN 5,000 UNIT/ML VIAL 5000 UNIT SUBCUT (21:19)
--- NOTE | 2019-02-16 21:29 | P.HP_ITS ---
History of Present Illness History of Present Illness Date Patient Seen: 02/16/19 Time Patient Seen: 19:45 Chief complaint: feels Dehydrated, Nausea, Body aches, Diabetic Narrative: Ms. Sarabjit Jimenes is a 28-year-old female patient with a history significant for type 1 diabetes, migraines, irregular menstruation and prior pyelolithiasis who presents to the ER with complaints of nausea without vomiting. This patient states she felt fine yesterday and this morning was feeling unwell with complaints of nausea vomiting and body aches. During her presentation to the emergency department. Patient is a known type 1 diabetic with multiple admissions for DKA. She Has no complaints of abdominal pain or diarrhea. She denies recent illness, fever chills headaches or dizziness. She denies nasal congestion or sore throat. She reports no chest pain palpitations, shortness of breath cough or wheezing. She has had no abdominal pain but has had nausea without vomiting. No diarrhea constipation. She denies urinary frequency urgency or burning and no hematuria. On last admission the patient had a vulvar abscess requiring I&D but has had no recurrence or other complaints of skin infections or lesions. She is under the care of a new lead pressman [employer] providing the name of Dr. Gay S [facility] and is on updated regimen of to Teseba 40 units at 11:00 a.m. daily, 2 units of parental insulin and correctional scale AC and HS. Upon arrival to the emergency department the patient is afebrile with temperature 98.6?, tachycardic at 117, blood pressure 133/87, respirations of 22 saturating 100% on room air. No imaging was completed. A VBG was obtained showing a pH of 7.11, pCO2 of 17.6, PO2 of 58, a bicarb of 6, and a base excess of -24. Patient has a mildly elevated white count at 13.2 with a hemoglobin of 15.6 and hematocrit of 47.3 and platelets of 302. Her updated electrolytes are sodium 140, chloride of 108, potassium of 4.6 and a CO of 10 for an anion gap of 22. On admission her blood glucose was 620. She was started on insulin drip without a bolus and given 1 L of IV fluid in the ER. Her glucose is now down to 298 on insulin infusion. Her phosphate is 6.2, magnesium 2.2 and calcium 9.3. She has a negative procalcitonin and lipase. She has elevated ketones at 14.48. Urine was obtained and sent to lab for culture but no urinalysis visible. She did have a UA completed on 02/03/2019 which showed 3+ glucose and 2+ ketones and was negative for urinary tract infection. The patient is admitted to the hospital for recurrent DKA. Patient History Medical History DKA (diabetic ketoacidoses) (Resolved) History of pyelonephritis (Resolved) Irregular menstrual cycle (Acute) Migraine headache (Chronic) Nephrolithiasis (Resolved) Type 1 diabetes mellitus (Chronic) Surgical History History of ureter stent (Resolved) Status post laser lithotripsy of ureteral calculus (Acute) Family & Social History Family History (Updated 02/16/19 @ 21:48 by SHARYN Noguera) Father In good health Mother Cardiac disease Social History: household members significant other,family Prior Living Arrangements House Safety & Behavioral: Feels Safe in Current Yes Environment Been Physically Hurt or No Threatened By a Person Suicidal Ideation Description None Suicide Plan Description No Plan Tobacco & Substance use: Smoking Status Never smoker alcohol intake never alcohol intake frequency holiday/special occasion Substance Use Type does not use Comment: he patient resides in [place] living in a single family home with her fiadelia. She describes hers father's as good and mother has cardiac problems. She has 1/2 sister which has a heart murmur. Occupation: Patient is presently not working and reports she is seeking employment. Smoking: Patient denies use of tobacco products Alcohol: Patient states very aware in very small amounts because of her diabetes. Substance use: The patient denies recreation pharmaceuticals, herbal or cannabis products. Advanced directives: The patient has no advanced directives but in direct discussion states she wants to be FULL CODE. She designates her nina Paredes to be her surrogate decision maker. Meds Home Medications and Allergies Home Medications Medication Instructions Recorded Confirmed Type Tresiba FlexTouch U-100 40 unit SUB-Q DAILY #15 ml 12/12/18 02/16/19 Rx glucose 4 gram PO Q15M PRN #30 tab 12/12/18 02/16/19 Rx cholecalciferol (vitamin D3) 2,000 unit PO DAILY 10/28/19 10/28/19 History [Vitamin D3] ergocalciferol (vitamin D2) 50,000 unit PO QWEEK 02/16/19 02/16/19 History [Vitamin D2] glucagon (human recombinant) 1 mg SUBCUT DIRECTED 02/16/19 02/16/19 History [Glucagon Emergency Kit (human)] insulin lispro [Humalog KwikPen 0 unit SUBCUT TID 02/16/19 02/16/19 History Insulin] norethindrone (contraceptive) 0.35 mg PO DAILY 02/16/19 02/16/19 History [[place]] Allergies Allergy/AdvReac Type Severity Reaction Status Date / Time abdalla [ABDALLA] Allergy Intermediate Hives, Verified 02/16/19 14:14 pruritus iodine [IODINE] Allergy Intermediate rash, itchy Verified 02/16/19 14:14 morphine Allergy Intermediate Difficulty Verified 02/16/19 14:14 Breathing shellfish derived Allergy Intermediate rash Verified 02/16/19 14:14 [SHELLFISH DERIVED] adhesive [ADHESIVE] Allergy Unknown tape Verified 02/16/19 14:14 latex [LATEX] Allergy Unknown Hives Verified 02/16/19 14:14 Review of Systems Review of Systems ROS Unobtainable: All systems reviewed & are unremarkable except as noted in HPI and below Exam Vital Signs (past 8 hours): - 02/16/19 14:12 02/16/19 14:32 02/16/19 15:00 Temperature 98.6 F Pulse Rate 117 H 119 H 117 H Respiratory Rate 22 21 18 Blood Pressure 133/87 Blood Pressure [Left Arm] 123/82 113/74 Pulse Oximetry 100 100 99 02/16/19 15:45 02/16/19 16:00 02/16/19 16:21 Temperature Pulse Rate 114 H 116 H 119 H Respiratory Rate 17 13 15 Blood Pressure Blood Pressure [Left Arm] 113/64 111/75 101/60 Pulse Oximetry 100 99 99 02/16/19 16:56 02/16/19 17:03 02/16/19 17:20 Temperature 96.6 F L Pulse Rate 118 H 121 H 119 H Respiratory Rate 14 14 18 Blood Pressure 117/72 Blood Pressure [Left Arm] 104/71 102/68 Pulse Oximetry 99 99 100 02/16/19 20:30 Temperature 96.6 F L Pulse Rate 110 H Respiratory Rate 13 Blood Pressure 110/56 L Blood Pressure [Left Arm] Pulse Oximetry 98 Oxygen Delivery Method Room Air Narrative Exam Narrative: GENERAL APPEARANCE: well developed, slender female with a BMI of 20.9, stable weight, in no acute distress. HEENT: Normocephalic, PERRLA, conjunctiva clear, EOMs intact without nystagmus, no sinus tenderness to percussion, no rhinorrhea, mucous membranes are moist and pink without lesions or exudate. NECK/THYROID: neck supple, no JVD, no thyromegaly, trachea midline. LYMPH NODES: no cervical or supraclavicular lymphadenopathy. SKIN: warm and dry, no suspicious lesions, no rashes HEART: regular rate and rhythm, S1-S2, no murmur, no rubs or gallops, brisk capillary refill, no edema LUNGS: clear to auscultation bilaterally, no coarseness crackles or wheezing, no cough present CHEST: Symmetrical movement, no accessory muscle use, no pain to AP and lateral compression. ABDOMEN: Soft, no distention, no abdominal tenderness, no guarding or peritonea l signs, no organomegaly, no flank or suprapubic tenderness, active bowel tones. BACK: Normal curvature, nontender to palpation, no CVA tenderness on percussion EXTREMITIES: moves all extremities, strength is 5/5 and symmetrical, no deformities or joint effusions. NEUROLOGIC: AAO x4, no focal neurologic deficits, cranial nerves II-XII grossly intact, sensation intact to light touch, hearing grossly normal to speech. PSYCH: alert,, flat affect, cognitive function intact, good eye contact, stable behavior Objective Labs Result Diagrams: 02/16/19 14:35 02/16/19 18:57 Labs: Laboratory Results - last 24 hr 02/16/19 02/16/19 02/16/19 14:25 14:35 14:35 WBC 13.2 H RBC 4.79 Hgb 15.6 Hct 47.3 H MCV 98.7 MCH 32.5 MCHC 32.9 RDW 12.5 Plt Count 302 Neut % (Auto) 72.0 Lymph % (Auto) 21.5 L Waldo % (Auto) 5.2 Eos % (Auto) 0.2 L Baso % (Auto) 1.1 Neut # (Auto) 9500 H Lymph # (Auto) 2800 Waldo # (Auto) 700 Eos # (Auto) 0 Baso # (Auto) 100 VBG pH 7.11 L* VBG pCO2 17.6 L VBG pO2 58 H VBG HCO3 6 L VBG Total CO2 6 L VBG O2 Saturation 80 H VBG Base Excess -24.0 L Sodium 135 L Potassium 5.2 H Chloride 99 Carbon Dioxide 7 L* BUN 30 H Creatinine 1.00 Estimated GFR > 60.0 BUN/Creatinine Ratio 30.0 H Glucose 620 H* Lactate Calcium 10.0 Phosphorus Magnesium 2.2 Total Bilirubin 0.5 AST 24 ALT 23 Alkaline Phosphatase 190 H Total Protein 8.0 Albumin 4.8 Globulin 3.2 Albumin/Globulin Ratio 1.5 Lipase 184 Procalcitonin Serum , Qual Urine Color Urine Appearance Urine pH Ur Specific [place] Urine Protein Urine Glucose (UA) Urine Ketones Urine Occult Blood Urine Nitrate Urine Bilirubin Urine Urobilinogen Ur Leukocyte Esterase Urine RBC Urine WBC Ur Squamous Epith Cells Ur Transition Epith Cell Ur Renal Epithelial Cell Calcium Oxalate Crystal Uric Acid Crystals Triple Phos Crystals Other Crystals Amorphous Sediment Urine Bacteria Hyaline Casts Granular Casts RBC Casts WBC Casts Other Casts Urine Mucus Urine Trichomonas Urine Yeast Urine Sperm Ur Culture Indicated? Micro UA Comment Nasal Screen MRSA (PCR) Ketones 14.48 H 02/16/19 02/16/19 02/16/19 14:35 14:35 15:00 WBC RBC Hgb Hct MCV MCH MCHC RDW Plt Count Neut % (Auto) Lymph % (Auto) Wal[place] % (Auto) Eos % (Auto) Baso % (Auto) Neut # (Auto) Lymph # (Auto) Wal[place] # (Auto) Eos # (Auto) Baso # (Auto) VBG pH VBG pCO2 VBG pO2 VBG HCO3 VBG Total CO2 VBG O2 Saturation VBG Base Excess Sodium Potassium Chloride Carbon Dioxide BUN Creatinine Estimated GFR BUN/Creatinine Ratio Glucose Lactate 1.0 Calcium Phosphorus 6.2 H Magnesium Total Bilirubin AST ALT Alkaline Phosphatase Total Protein Albumin Globulin Albumin/Globulin Ratio Lipase Procalcitonin < 0.05 Serum , Qual Negative Urine Color Urine Appearance Urine pH Ur Specific [place] Urine Protein Urine Glucose (UA) Urine Ketones Urine Occult Blood Urine Nitrate Urine Bilirubin Urine Urobilinogen Ur Leukocyte Esterase Urine RBC Urine WBC Ur Squamous Epith Cells Ur Transition Epith Cell Ur Renal Epithelial Cell Calcium Oxalate Crystal Uric Acid Crystals Triple Phos Crystals Other Crystals Amorphous Sediment Urine Bacteria Hyaline Casts Granular Casts RBC Casts WBC Casts Other Casts Urine Mucus Urine Trichomonas Urine Yeast Urine Sperm Ur Culture Indicated? Micro UA Comment Nasal Screen MRSA (PCR) Ketones 02/16/19 02/16/19 02/16/19 15:16 15:27 17:30 WBC RBC Hgb Hct MCV MCH MCHC RDW Plt Count Neut % (Auto) Lymph % (Auto) Wal[place] % (Auto) Eos % (Auto) Baso % (Auto) Neut # (Auto) Lymph # (Auto) Wal[place] # (Auto) Eos # (Auto) Baso # (Auto) VBG pH VBG pCO2 VBG pO2 VBG HCO3 VBG Total CO2 VBG O2 Saturation VBG Base Excess Sodium Potassium Chloride Carbon Dioxide BUN Creatinine Estimated GFR BUN/Creatinine Ratio Glucose Lactate Calcium Phosphorus Magnesium Total Bilirubin AST ALT Alkaline Phosphatase Total Protein Albumin Globulin Albumin/Globulin Ratio Lipase Procalcitonin Serum , Qual Urine Color Yellow Urine Appearance Clear Urine pH 5.0 Ur Specific [place] 1.010 Urine Protein Negative Urine Glucose (UA) 1+ H Urine Ketones 3+ H Urine Occult Blood Negative Urine Nitrate Negative Urine Bilirubin Negative Urine Urobilinogen 0.2 Ur Leukocyte Esterase 1+ H Urine RBC Cancelled 1-5/hpf Urine WBC Cancelled 1-5/hpf Ur Squamous Epith Cells Cancelled 0-1 /hpf Ur Transition Epith Cell Cancelled Ur Renal Epithelial Cell Cancelled Calcium Oxalate Crystal Cancelled Uric Acid Crystals Cancelled Triple Phos Crystals Cancelled Other Crystals Cancelled Amorphous Sediment Cancelled Urine Bacteria Cancelled Few (2-10) H Hyaline Casts Cancelled Granular Casts Cancelled RBC Casts Cancelled WBC Casts Cancelled Other Casts Cancelled Urine Mucus Cancelled Urine Trichomonas Cancelled Urine Yeast Cancelled Urine Sperm Cancelled Ur Culture Indicated? Cancelled Specimen cultured Micro UA Comment Cancelled Nasal Screen MRSA (PCR) Negative for mrsa Ketones 02/16/19 18:57 WBC RBC Hgb Hct MCV MCH MCHC RDW Plt Count Neut % (Auto) Lymph % (Auto) Waldo % (Auto) Eos % (Auto) Baso % (Auto) Neut # (Auto) Lymph # (Auto) Waldo # (Auto) Eos # (Auto) Baso # (Auto) VBG pH VBG pCO2 VBG pO2 VBG HCO3 VBG Total CO2 VBG O2 Saturation VBG Base Excess Sodium 140 Potassium 4.6 Chloride 108 H Carbon Dioxide 10 L BUN 28 H Creatinine 0.90 Estimated GFR > 60.0 BUN/Creatinine Ratio 31.1 H Glucose 298 H D Lactate Calcium 9.3 Phosphorus Magnesium Total Bilirubin AST ALT Alkaline Phosphatase Total Protein Albumin Globulin Albumin/Globulin Ratio Lipase Procalcitonin Serum , Qual Urine Color Urine Appearance Urine pH Ur Specific [place] Urine Protein Urine Glucose (UA) Urine Ketones Urine Occult Blood Urine Nitrate Urine Bilirubin Urine Urobilinogen Ur Leukocyte Esterase Urine RBC Urine WBC Ur Squamous Epith Cells Ur Transition Epith Cell Ur Renal Epithelial Cell Calcium Oxalate Crystal Uric Acid Crystals Triple Phos Crystals Other Crystals Amorphous Sediment Urine Bacteria Hyaline Casts Granular Casts RBC Casts WBC Casts Other Casts Urine Mucus Urine Trichomonas Urine Yeast Urine Sperm Ur Culture Indicated? Micro UA Comment Nasal Screen MRSA (PCR) Ketones Assessment & Plan Assessment & Plan narrative: This 28-year-old female who presents to the hospital for nausea with body aches and diabetic ketoacidosis with no identified infective etiology. 1. Acute diabetic ketoacidosis, present on admission. -patient refer reports under the care of Endocrinology at [facility] using Treseba 40 units at 11:00 a.m. daily, 2 units prandial insulin with correctional insulin sliding scale. -patient acknowledges dietary indiscretions. No source of infection identified with negative procalcitonin, minimally elevated white blood cell count at 13.2. -DKA protocol with insulin drip, fluid replacement with normal saline transitioning to half-normal saline and then D5/0.45% saline saline when blood sugars less than 250. -Monitor electrolytes at midnight and 5:00 a.m. and continue as needed until anion gap closes, replete as needed. -will transition the patient back to long-acting, prandial and correctional insulin when anion gap closes. 2. Acute anion gap metabolic acidosis, present on admission. -VBG demonstrated: PH 7.11, pCO2 17.6, PO2 58, HC03 6, base excess -24. -Continue to treat DKA, no identified underlying cause other than noncompliance and dietary indiscretion. 3. Medical noncompliance, active -UA documented on 02/03/2019 with 3+ glucose and 2+ ketones identifying chronicity of ineffective treatment. -reinforce need for routine blood sugar checks, corrected insulin management and appropriate diet. -dietitian to consult, re-educate and reinforce dietary management VTE prophylaxis: Bilateral SCDs, subcutaneous heparin Diet: NPO except septal ice chips, will advance when anion gap closes. The patient is admitted to the hospital as an inpatient to ICU related to severity of her symptoms and need for IV therapy and frequency of interventions. She is admitted as an inpatient with expected length of stay to be greater than 2 midnights. Time Spent With Patient Time with patient: 25 - 35 minutes Scores GCS [place] coma scale eye opening: Spontaneous Alex coma scale verbal response: Orientated Alex coma scale motor response: Obey commands [place] coma scale total score: 15
[2019-02-17] VITALS: BP 107/55; PULSE 104; RESP 14; TEMP 37.4; O2SAT 99
[2019-02-17 00:13] LABS: Magnesium 1.6 mg/dL (1.6-2.3)
[2019-02-17 00:14] LABS: BUN Creatinine Ratio 31.4 (6-22); Blood Urea Nitrogen 22 mg/dL (7-17); Calcium 8.6 mg/dL (8.4-10.2); Carbon Dioxide 16 mmol/L (22-32); Chloride 109 mmol/L (98-107); Estimated Glomerular Filt Rate > 60.0 mL/min (>60); Glucose 147 mg/dL (70-100); HEMOLYSIS 22 (0-50); Potassium 3.9 mmol/L (3.4-5.1)
[2019-02-17 00:16] LABS: Sodium 135 mmol/L (137-145)
[2019-02-17 02:00] VITALS: BP 106/54; PULSE 95; RESP 12; O2SAT 98
[2019-02-17] MEDS: DEXTROSE 5%-0.45% NS 1,000 ML 150 ML IV (02:23)
[2019-02-17 04:57] VITALS: BP 94/41; PULSE 93; RESP 12; TEMP 36.7
[2019-02-17 05:00] LABS: Add Manual Diff / Slide Review NO; Basophils Absolute Auto 0 /uL (0-100); Basophils Percent Auto 0.3 % (0-2); Eosinophils Absolute Auto 100 /uL (0-450); Eosinophils Percent Auto 1.2 % (2-4); Hematocrit 37.2 % (36-46); Hemoglobin 12.9 g/dL (12.0-16.0); Lymphocytes Absolute Auto 3100 /uL (1100-4500); Lymphocytes Percent Auto 29.9 % (25-40); Mean Corpuscular HGB Conc 34.5 % (30-36); Mean Corpuscular Hemoglobin 32.4 PG (26-34); Mean Corpuscular Volume 93.7 fL (80-100); Monocytes Absolute Auto 800 /uL (0-900); Neutrophils Absolute Auto 6300 /uL (1500-7000); Neutrophils Percent Auto 60.6 % (50-75); Platelet Count 287 X10^3/uL (150-400); Red Blood Cell Count 3.97 X10^6/uL (4.0-5.2); Red Cell Distribution Width 12.1 % (11.6-14.8); White Blood Cell Count 10.4 X10^3/uL (4.5-11.0)
[2019-02-17 05:03] LABS: Magnesium 1.5 mg/dL (1.6-2.3); Phosphorous 3.3 mg/dL (2.5-4.5)
[2019-02-17 05:13] LABS: Blood Urea Nitrogen 18 mg/dL (7-17); Calcium 8.3 mg/dL (8.4-10.2); Carbon Dioxide 17 mmol/L (22-32); Chloride 110 mmol/L (98-107); Estimated Glomerular Filt Rate > 60.0 mL/min (>60); Glucose 151 mg/dL (70-100); HEMOLYSIS < 15 (0-50); Potassium 3.6 mmol/L (3.4-5.1); Sodium 135 mmol/L (137-145)
[2019-02-17] MEDS: MAGNESIUM SULFATE 2 GM/50 ML PIGGYBACK IV (05:34)
[2019-02-17] MEDS: INSULIN ASPART 100 UNIT/ML INSULN PEN SUBCUT (05:35)
[2019-02-17 05:39] LABS: Hemoglobin A1C% w Est Avg Glu > 14.0 % (4.0-6.0)
--- NOTE | 2019-02-17 06:44 | PC.NURSE ---
Patient remained on insulin gtt throughout night, titrated from 1-2.5units/hr, see flow sheet. Tolerated clear liquid diet without nausea. 2 units Novolog given at 0530, insulin off at 0630. IVF DC'd, 2mg Mg+ infusing in am for Mg= 1.3. SR/ST, HR does increase to 120s when up to BR, asymptomatic.
[2019-02-17 08:13] VITALS: BP 100/47; PULSE 106; RESP 19; TEMP 36.8; O2SAT 97
[2019-02-17] MEDS: CHOLECALCIFEROL (VITAMIN D3) 1,000 UNIT TABLET 2000 UNIT PO (08:20)
[2019-02-17] MEDS: HEPARIN 5,000 UNIT/ML VIAL 5000 UNIT SUBCUT (08:21)
[2019-02-17] MEDS: INSULIN DEGLUDEC 40 UNIT 40 EACH SUBCUT (08:21)
[2019-02-17] MEDS: SODIUM CHLORIDE 0.9% FLUSH 10 ML IV (08:31)
--- NOTE | 2019-02-17 08:40 | PC.NURSE ---
Addendum entered by Monica Kwon R.N. 02/17/19 11:47: Went over dc meds and instructions with patient, questions answered. Patient given back own insulin pen from pharmacy. Patient walked to vehicle driven by mom. Patient had all belongings. Addendum entered by Monica Kwon R.N. 02/17/19 11:10: Patient BG 315, Dr Weinberg called orders received. Original Note: Patient alert,oriented, denies pain and nausea. BG 128 at 0730, patient ate breakfast without nausea. GIven long acting insulin. Patient planning to discharge this morning, Dr Weinberg in to assess.
--- NOTE | 2019-02-17 09:56 | PM.DS.1 ---
History of Present Illness History of Present Illness Date Patient Seen: 02/17/19 Time Patient Seen: 08:30 Chief complaint: feels Dehydrated, Nausea, Body aches, Diabetic Narrative: As per SHARYN Noguera: Ms. Sarabjit Jimenes is a 28-year-old female patient with a history significant for type 1 diabetes, migraines, irregular menstruation and prior pyelolithiasis who presents to the ER with complaints of nausea without vomiting. This patient states she felt fine yesterday and this morning was feeling unwell with complaints of nausea vomiting and body aches. During her presentation to the emergency department. Patient is a known type 1 diabetic with multiple admissions for DKA. She Has no complaints of abdominal pain or diarrhea. She denies recent illness, fever chills headaches or dizziness. She denies nasal congestion or sore throat. She reports no chest pain palpitations, shortness of breath cough or wheezing. She has had no abdominal pain but has had nausea without vomiting. No diarrhea constipation. She denies urinary frequency urgency or burning and no hematuria. On last admission the patient had a vulvar abscess requiring I&D but has had no recurrence or other complaints of skin infections or lesions. She is under the care of a new workers compensation claims analyst providing the name of Dr. Gay S [facility] and is on updated regimen of to Teseba 40 units at 11:00 a.m. daily, 2 units of parental insulin and correctional scale AC and HS. Upon arrival to the emergency department the patient is afebrile with temperature 98.6?, tachycardic at 117, blood pressure 133/87, respirations of 22 saturating 100% on room air. No imaging was completed. A VBG was obtained showing a pH of 7.11, pCO2 of 17.6, PO2 of 58, a bicarb of 6, and a base excess of -24. Patient has a mildly elevated white count at 13.2 with a hemoglobin of 15.6 and hematocrit of 47.3 and platelets of 302. Her updated electrolytes are sodium 140, chloride of 108, potassium of 4.6 and a CO of 10 for an anion gap of 22. On admission her blood glucose was 620. She was started on insulin drip without a bolus and given 1 L of IV fluid in the ER. Her glucose is now down to 298 on insulin infusion. Her phosphate is 6.2, magnesium 2.2 and calcium 9.3. She has a negative procalcitonin and lipase. She has elevated ketones at 14.48. Urine was obtained and sent to lab for culture but no urinalysis visible. She did have a UA completed on 02/03/2019 which showed 3+ glucose and 2+ ketones and was negative for urinary tract infection. The patient is admitted to the hospital for recurrent DKA. Discharge Providers Provider Date of admission: 02/16/19 15:56 Discharge Date: 02/17/19 Consults: 02/16/19 22:00 Consult to Dietitian, Adult Routine Comment: Reason For Exam: Recurrent DKA Discharge provider: Julio Cesar Weinberg DO Summary Hospital Course Discharge Diagnosis: 1. Acute diabetic ketoacidosis, present on admission, now resolved 2. Acute anion gap metabolic acidosis, present on admission, now resolved 3. Leukocytosis, reactive, present on admission, now resolved Hospital Course: This 28-year-old female who presents to the hospital for nausea with body aches and diabetic ketoacidosis with no identified infective etiology. Patient reports compliance with her medications as directed by her workers compensation claims analyst. She improved rapidly with an insulin infusion, which was discontinued and patient was started on her home regimen. She was feeling well and tolerating a diet and she was discharged the next morning. She will follow up with her workers compensation claims analyst as scheduled. 1. Acute diabetic ketoacidosis, present on admission. -patient refer reports under the care of [place] at [facility] [place] Treseba 40 units at 11:00 a.m. daily, 2 units prandial insulin with correctional insulin sliding scale. -patient acknowledges dietary indiscretions. No source of infection identified with negative procalcitonin, minimally elevated white blood cell count at 13.2. -DKA protocol with insulin drip, fluid replacement with normal saline transitioning to half-normal saline and then D5/0.45% saline saline when blood sugars less than 250. -Monitor electrolytes at midnight and 5:00 a.m. and continue as needed until anion gap closes, replete as needed. -will transition the patient back to long-acting, prandial and correctional insulin when anion gap closes. 2. Acute anion gap metabolic acidosis, present on admission. -VBG demonstrated: PH 7.11, pCO2 17.6, PO2 58, HC03 6, base excess -24. -CO2 improved on repeat BMP and patient appearing well. Patient stable for discharge home after treatment of DKA as noted above. 3. Leukocytosis, likely reactive, present on admission, resolved. - Likely reactive in setting of DKA. No infectious etiologies identified and patient currently feeling well. Leukocytosis resolved prior to discharge. Status at Discharge Cognitive/behavioral status at discharge: oriented Functional status at discharge: independent ambulation Overall status at discharge: patient is back to baseline Exam Vital Signs (past 8 hours): - 02/17/19 02:00 02/17/19 04:57 02/17/19 08:13 Temperature 98.1 F 98.3 F Pulse Rate 95 H 93 H 106 H Respiratory Rate 12 12 19 Blood Pressure 106/54 L 94/41 L 100/47 L Pulse Oximetry 98 97 Oxygen Delivery Method Room Air Oxygen Flow Rate 0 Narrative Exam Narrative: GENERAL APPEARANCE: Well developed, well nourished, in no acute distress. SKIN: Inspection of the skin reveals no rashes, ulcerations or petechiae. HEENT: The sclerae were anicteric and conjunctivae were pink and moist. Extraocular movements were intact and pupils were equal, round with normal accommodation. External inspection of the ears and nose showed no scars, lesions, or masses. Lips, teeth, and gums showed normal mucosa. The oral mucosa, hard and soft palate, tongue and posterior pharynx were unremarkable. NECK: Supple and symmetric. There was no thyroid enlargement, and no tenderness, or masses were felt. CHEST: Normal AP diameter and normal contour without any kyphoscoliosis. LUNGS: Auscultation of the lungs revealed no wheezes, rhonchi, or rales. CARDIOVASCULAR: There was a regular rate and rhythm without any murmurs, gallops, rubs. Peripheral pulses were 2+ and symmetric. ABDOMEN: Soft and nontender with normal bowel sounds. No ascites was noted. MUSCULOSKELETAL: There was no tenderness or effusions noted. Muscle strength and tone were normal. EXTREMITIES: No cyanosis, clubbing or edema. NEUROLOGIC: Alert and oriented x 3. Normal affect. Gait was normal. Strength is +5/5 in the Upper Extremities and Lower Extremities Bilaterally. Sensation to touch was normal. Objective Labs Result Diagrams: 02/17/19 04:30 02/17/19 04:30 Labs: Laboratory Results - last 24 hr 02/16/19 02/16/19 02/16/19 14:25 14:35 14:35 WBC 13.2 H RBC 4.79 Hgb 15.6 Hct 47.3 H MCV 98.7 MCH 32.5 MCHC 32.9 RDW 12.5 Plt Count 302 Neut % (Auto) 72.0 Lymph % (Auto) 21.5 L [place] % (Auto) 5.2 Eos % (Auto) 0.2 L Baso % (Auto) 1.1 Neut # (Auto) 9500 H Lymph # (Auto) 2800 [place] # (Auto) 700 Eos # (Auto) 0 Baso # (Auto) 100 VBG pH 7.11 L* VBG pCO2 17.6 L VBG pO2 58 H VBG HCO3 6 L VBG Total CO2 6 L VBG O2 Saturation 80 H VBG Base Excess -24.0 L Sodium 135 L Potassium 5.2 H Chloride 99 Carbon Dioxide 7 L* BUN 30 H Creatinine 1.00 Estimated GFR > 60.0 BUN/Creatinine Ratio 30.0 H Glucose 620 H* Hemoglobin A1c Lactate Calcium 10.0 Phosphorus Magnesium 2.2 Total Bilirubin 0.5 AST 24 ALT 23 Alkaline Phosphatase 190 H Total Protein 8.0 Albumin 4.8 Globulin 3.2 Albumin/Globulin Ratio 1.5 Lipase 184 Procalcitonin Serum , Qual Urine Color Urine Appearance Urine pH Ur Specific [place] Urine Protein Urine Glucose (UA) Urine Ketones Urine Occult Blood Urine Nitrate Urine Bilirubin Urine Urobilinogen Ur Leukocyte Esterase Urine RBC Urine WBC Ur Squamous Epith Cells Ur Transition Epith Cell Ur Renal Epithelial Cell Calcium Oxalate Crystal Uric Acid Crystals Triple Phos Crystals Other Crystals Amorphous Sediment Urine Bacteria Hyaline Casts Granular Casts RBC Casts WBC Casts Other Casts Urine Mucus Urine Trichomonas Urine Yeast Urine Sperm Ur Culture Indicated? Micro UA Comment Nasal Screen MRSA (PCR) Ketones 14.48 H 02/16/19 02/16/19 02/16/19 14:35 14:35 15:00 WBC RBC Hgb Hct MCV MCH MCHC RDW Plt Count Neut % (Auto) Lymph % (Auto) [place] % (Auto) Eos % (Auto) Baso % (Auto) Neut # (Auto) Lymph # (Auto) [place] # (Auto) Eos # (Auto) Baso # (Auto) VBG pH VBG pCO2 VBG pO2 VBG HCO3 VBG Total CO2 VBG O2 Saturation VBG Base Excess Sodium Potassium Chloride Carbon Dioxide BUN Creatinine Estimated GFR BUN/Creatinine Ratio Glucose Hemoglobin A1c Lactate 1.0 Calcium Phosphorus 6.2 H Magnesium Total Bilirubin AST ALT Alkaline Phosphatase Total Protein Albumin Globulin Albumin/Globulin Ratio Lipase Procalcitonin < 0.05 Serum , Qual Negative Urine Color Urine Appearance Urine pH Ur Specific [place] Urine Protein Urine Glucose (UA) Urine Ketones Urine Occult Blood Urine Nitrate Urine Bilirubin Urine Urobilinogen Ur Leukocyte Esterase Urine RBC Urine WBC Ur Squamous Epith Cells Ur Transition Epith Cell Ur Renal Epithelial Cell Calcium Oxalate Crystal Uric Acid Crystals Triple Phos Crystals Other Crystals Amorphous Sediment Urine Bacteria Hyaline Casts Granular Casts RBC Casts WBC Casts Other Casts Urine Mucus Urine Trichomonas Urine Yeast Urine Sperm Ur Culture Indicated? Micro UA Comment Nasal Screen MRSA (PCR) Ketones 02/16/19 02/16/19 02/16/19 15:16 15:27 17:30 WBC RBC Hgb Hct MCV MCH MCHC RDW Plt Count Neut % (Auto) Lymph % (Auto) [place] % (Auto) Eos % (Auto) Baso % (Auto) Neut # (Auto) Lymph # (Auto) [place] # (Auto) Eos # (Auto) Baso # (Auto) VBG pH VBG pCO2 VBG pO2 VBG HCO3 VBG Total CO2 VBG O2 Saturation VBG Base Excess Sodium Potassium Chloride Carbon Dioxide BUN Creatinine Estimated GFR BUN/Creatinine Ratio Glucose Hemoglobin A1c Lactate Calcium Phosphorus Magnesium Total Bilirubin AST ALT Alkaline Phosphatase Total Protein Albumin Globulin Albumin/Globulin Ratio Lipase Procalcitonin Serum , Qual Urine Color Yellow Urine Appearance Clear Urine pH 5.0 Ur Specific [place] 1.010 Urine Protein Negative Urine Glucose (UA) 1+ H Urine Ketones 3+ H Urine Occult Blood Negative Urine Nitrate Negative Urine Bilirubin Negative Urine Urobilinogen 0.2 Ur Leukocyte Esterase 1+ H Urine RBC Cancelled 1-5/hpf Urine WBC Cancelled 1-5/hpf Ur Squamous Epith Cells Cancelled 0-1 /hpf Ur Transition Epith Cell Cancelled Ur Renal Epithelial Cell Cancelled Calcium Oxalate Crystal Cancelled Uric Acid Crystals Cancelled Triple Phos Crystals Cancelled Other Crystals Cancelled Amorphous Sediment Cancelled Urine Bacteria Cancelled Few (2-10) H Hyaline Casts Cancelled Granular Casts Cancelled RBC Casts Cancelled WBC Casts Cancelled Other Casts Cancelled Urine Mucus Cancelled Urine Trichomonas Cancelled Urine Yeast Cancelled Urine Sperm Cancelled Ur Culture Indicated? Cancelled Specimen cultured Micro UA Comment Cancelled Nasal Screen MRSA (PCR) Negative for mrsa Ketones 02/16/19 02/16/19 02/16/19 18:57 23:50 23:50 WBC RBC Hgb Hct MCV MCH MCHC RDW Plt Count Neut % (Auto) Lymph % (Auto) [place] % (Auto) Eos % (Auto) Baso % (Auto) Neut # (Auto) Lymph # (Auto) [place] # (Auto) Eos # (Auto) Baso # (Auto) VBG pH VBG pCO2 VBG pO2 VBG HCO3 VBG Total CO2 VBG O2 Saturation VBG Base Excess Sodium 140 135 L Potassium 4.6 3.9 Chloride 108 H 109 H Carbon Dioxide 10 L 16 L BUN 28 H 22 H Creatinine 0.90 0.70 Estimated GFR > 60.0 > 60.0 BUN/Creatinine Ratio 31.1 H 31.4 H Glucose 298 H D 147 H D Hemoglobin A1c Lactate Calcium 9.3 8.6 Phosphorus Magnesium 1.6 Total Bilirubin AST ALT Alkaline Phosphatase Total Protein Albumin Globulin Albumin/Globulin Ratio Lipase Procalcitonin Serum , Qual Urine Color Urine Appearance Urine pH Ur Specific [place] Urine Protein Urine Glucose (UA) Urine Ketones Urine Occult Blood Urine Nitrate Urine Bilirubin Urine Urobilinogen Ur Leukocyte Esterase Urine RBC Urine WBC Ur Squamous Epith Cells Ur Transition Epith Cell Ur Renal Epithelial Cell Calcium Oxalate Crystal Uric Acid Crystals Triple Phos Crystals Other Crystals Amorphous Sediment Urine Bacteria Hyaline Casts Granular Casts RBC Casts WBC Casts Other Casts Urine Mucus Urine Trichomonas Urine Yeast Urine Sperm Ur Culture Indicated? Micro UA Comment Nasal Screen MRSA (PCR) Ketones 02/17/19 02/17/19 02/17/19 04:30 04:30 04:30 WBC 10.4 RBC 3.97 L Hgb 12.9 Hct 37.2 MCV 93.7 D MCH 32.4 MCHC 34.5 RDW 12.1 Plt Count 287 Neut % (Auto) 60.6 Lymph % (Auto) 29.9 [place] % (Auto) 8.0 Eos % (Auto) 1.2 L Baso % (Auto) 0.3 Neut # (Auto) 6300 Lymph # (Auto) 3100 [place] # (Auto) 800 Eos # (Auto) 100 Baso # (Auto) 0 VBG pH VBG pCO2 VBG pO2 VBG HCO3 VBG Total CO2 VBG O2 Saturation VBG Base Excess Sodium Potassium Chloride Carbon Dioxide BUN Creatinine Estimated GFR BUN/Creatinine Ratio Glucose Hemoglobin A1c > 14.0 H Lactate Calcium Phosphorus 3.3 D Magnesium 1.5 L Total Bilirubin AST ALT Alkaline Phosphatase Total Protein Albumin Globulin Albumin/Globulin Ratio Lipase Procalcitonin Serum , Qual Urine Color Urine Appearance Urine pH Ur Specific [place] Urine Protein Urine Glucose (UA) Urine Ketones Urine Occult Blood Urine Nitrate Urine Bilirubin Urine Urobilinogen Ur Leukocyte Esterase Urine RBC Urine WBC Ur Squamous Epith Cells Ur Transition Epith Cell Ur Renal Epithelial Cell Calcium Oxalate Crystal Uric Acid Crystals Triple Phos Crystals Other Crystals Amorphous Sediment Urine Bacteria Hyaline Casts Granular Casts RBC Casts WBC Casts Other Casts Urine Mucus Urine Trichomonas Urine Yeast Urine Sperm Ur Culture Indicated? Micro UA Comment Nasal Screen MRSA (PCR) Ketones 02/17/19 04:30 WBC RBC Hgb Hct MCV MCH MCHC RDW Plt Count Neut % (Auto) Lymph % (Auto) [place] % (Auto) Eos % (Auto) Baso % (Auto) Neut # (Auto) Lymph # (Auto) [place] # (Auto) Eos # (Auto) Baso # (Auto) VBG pH VBG pCO2 VBG pO2 VBG HCO3 VBG Total CO2 VBG O2 Saturation VBG Base Excess Sodium 135 L Potassium 3.6 Chloride 110 H Carbon Dioxide 17 L BUN 18 H Creatinine 0.60 Estimated GFR > 60.0 BUN/Creatinine Ratio 30.0 H Glucose 151 H Hemoglobin A1c Lactate Calcium 8.3 L Phosphorus Magnesium Total Bilirubin AST ALT Alkaline Phosphatase Total Protein Albumin Globulin Albumin/Globulin Ratio Lipase Procalcitonin Serum , Qual Urine Color Urine Appearance Urine pH Ur Specific [place] Urine Protein Urine Glucose (UA) Urine Ketones Urine Occult Blood Urine Nitrate Urine Bilirubin Urine Urobilinogen Ur Leukocyte Esterase Urine RBC Urine WBC Ur Squamous Epith Cells Ur Transition Epith Cell Ur Renal Epithelial Cell Calcium Oxalate Crystal Uric Acid Crystals Triple Phos Crystals Other Crystals Amorphous Sediment Urine Bacteria Hyaline Casts Granular Casts RBC Casts WBC Casts Other Casts Urine Mucus Urine Trichomonas Urine Yeast Urine Sperm Ur Culture Indicated? Micro UA Comment Nasal Screen MRSA (PCR) Ketones Discharge Plan Discharge Plan Patient Disposition: Home Discharge comment: You were admitted to the hospital with DKA. You improved very quickly on an insulin infusion, and were transition to your home medications. It is unclear why you went into DKA at this time, but no infectious causes were found on our evaluations. Your tolerating a diet the next morning and your low labs were back to normal. Your discharged home. Please follow-up with your workers compensation claims analyst as previously scheduled. Discharge Med Rec/Prescriptions Prescriptions: Continued Tresiba FlexTouch U-100 100 unit/mL (3 mL) Insulin Pen 40 unit Sub-Q DAILY Qty: 15 RF: 2 glucose 4 gram tablet,chewable 4 gram PO Q15M PRN (Reason: hypoglycemia) Qty: 30 RF: 0 Glucagon Emergency Kit (human) 1 mg recon soln 1 mg subcut DIRECTED RF: 0 ergocalciferol (vitamin D2) [Vitamin D2] 50,000 unit capsule 50,000 unit PO QWEEK RF: 0 norethindrone (contraceptive) [[place]] 0.35 mg Tablet 0.35 mg PO DAILY RF: 0 cholecalciferol (vitamin D3) [Vitamin D3] 2,000 unit Capsule 2,000 unit PO DAILY RF: 0 insulin lispro [Humalog KwikPen Insulin] 100 unit/mL insulin pen 0 unit SUBCUT TID RF: 0 Provider Discharge Instructions Diet: Diet as Tolerated and Carb-consistent/Diabetic Activity: As tolerated Visit Report/Discharge Packet Instructions: DI for Diabetic Ketoacidosis Visit Report Forms: Patient Portal/API, Stroke Signs & Symptoms
[2019-02-17 11:13] VITALS: BMI 20.6
--- NOTE | 2019-02-17 11:22 | DIET.PN ---
Dietary Progress Note Assessment: 29y F c DM1 since age 6y, admitted for DKA, nausea and vomiting referred to nutrition for ongoing DM education. This is pt's 8th hospitalization this year for DKA at . Pt reports having state insurance ([employer]). 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 Pt would like a CGM and insulin pump to help manage DM1. Her previous endo, Dr. Oreilly was unable to secure this medical equipment related to insurance denial. Pt f/u in one week to work with new endo. Pt unable to inject insulin in L leg r/t scar tissue, similar issue in sections of abdomen. Pt A1c is >14 and was recorded as the same in June and November of this year. HT: 154.9cm WT: 49.5kg BMI:20.6 Labs: A1c >14 HH, urine ketones 3+ (14 HH) MNA: 9 at risk for malnutrition [place]: 21 Nutrition Diagnosis: Poor nutrition quality of life r/t barriers in accessing critical medical supplies to manage DM1 aeb pt A1c >14, 8 hospital admits in past 1y for DKA, pt on state insurance which is denying CGM and insulin pump. Interventions: Discussed finding part-time job with hospital or other organization who will offer her private health insurance to cover her needed medical equipment. Diet Order: CCD EER: 1800kcal, 65g PRO (1.3g/kg underweight), 1.5 L fluids Monitoring/Evaluations: pt has f/u appt c new physiological chemist at [facility]
[2019-02-17] MEDS: INSULIN ASPART 100 UNIT/ML INSULN PEN 10 UNIT SUBCUT (11:38)
--- NOTE | 2019-02-17 14:43 | CM.DANOTE ---
Discharge Planning/Care Management DCP: assessment: case received, EMR reviewed this morning at 0910. Discussed case in Team Rounds. Pt is a 29 year old female who admitted to care of hospitalist team 1600 yesterday. OBS admission status: confirmed by UR RAYNA Lee. Payer; [employer]Medicaid. Pt is newly established with an rn cardiac rehab at [facility] and she carries a diagnosis Type I diabetes since the age of [address]. Dr[address] Weinbreg noted in Rounds that he planned to d/c pt to home setting and continued followup with her rn cardiac rehab but that he would need to check in with her first. Ellen/forestry faculty member planned to see pt before she left. A check in about 1230 showed that pt was deemed stable for d/c and she walked out to car driven by her mother and left for home about 1130. CM Discharge Assessment Start: 02/17/19 09:27 Freq: Status: Discharge Protocol: Document 02/17/19 09:28 ITV (Rec: 02/17/19 09:29 [id number] [id number]) Discharge Planning Assessment Advance Directives? No History Provided By Medical Record Prior Living Arrangements House Household Members significant other,family Independent with ADL's Yes Is patient alert and oriented? Yes Review Status In Process Document 02/17/19 14:42 ITV (Rec: 02/17/19 14:43 ITV [id number]) Discharge Planning Assessment Advance Directives? No History Provided By Medical Record Prior Living Arrangements House Household Members significant other,family Independent with ADL's Yes Is patient alert and oriented? Yes Discharge Plan Home Review Status In Process
== END 2019-02-17 11:53 | disposition home or self-care (01) | DRG 639 ==
LOC: ED 14:23 → ICU 15:57
PROVIDERS: Nurse Practitioner Adult Health; Admitting Provider Internal Medicine; Emergency Provider Emergency Medicine; Visit Provider Internal Medicine
DX: E10.10 Type 1 diabetes mellitus with ketoacidosis without coma (principal); Z91.11 Patient's noncompliance with dietary regimen
CPT/HCPCS: 36415; 80048; 80053; 81001; 82009; 82805; 82962; 83036; 83605; 83690; 83735; 84100; 84145; 84703; 85025; 87086; 87797; 93005; 93010; 96361; 96374; 96375; 99285; 99291; J1170; J1644; J2405; J7050

== ENCOUNTER 2019-02-23 16:19 | Inpatient (IN) | payer MEDICAID, OTHER, SELFPAY ==
[2019-02-23] VITALS (7 sets, daily range): BP systolic 122–139; BP diastolic 75–90; PULSE 114–123; RESP 16–26; TEMP 37.2–37.3; O2SAT 97–100; BMI 18.8
[2019-02-23 17:19] LABS: PO2 VBG 47 mmHg (35-45); pH VBG 7.08 (7.33-7.43)
[2019-02-23 17:20] LABS: HCO3 VBG 5 mmol/L (23-28); Oxygen Saturation VBG 68 % (70-75); Total CO2 VBG 5 mmol/L (24-29)
[2019-02-23 17:36] LABS: Add Manual Diff / Slide Review NO; Basophils Absolute Auto 100 /uL (0-100); Eosinophils Absolute Auto 0 /uL (0-450); Eosinophils Percent Auto 0.2 % (2-4); Hematocrit 45.8 % (36-46); Hemoglobin 15.1 g/dL (12.0-16.0); Lymphocytes Absolute Auto 2100 /uL (1100-4500); Lymphocytes Percent Auto 21.3 % (25-40); Mean Corpuscular Hemoglobin 32.2 PG (26-34); Monocytes Absolute Auto 600 /uL (0-900); Neutrophils Absolute Auto 7000 /uL (1500-7000); Neutrophils Percent Auto 71.5 % (50-75); Platelet Count 417 X10^3/uL (150-400); Red Cell Distribution Width 12.6 % (11.6-14.8); White Blood Cell Count 9.8 X10^3/uL (4.5-11.0)
[2019-02-23 17:38] LABS: Mean Corpuscular Volume 97.5 fL (80-100)
[2019-02-23] MEDS: ONDANSETRON 4 MG/2 ML INJ IV (17:40)
[2019-02-23 17:41] LABS: Lactate (Lactic Acid) 1.2 mmol/L (0.7-2.1)
[2019-02-23] MEDS: SODIUM CHLORIDE 0.9% 1,000 ML 1000 ML IV (17:41)
[2019-02-23 17:42] LABS: HEMOLYSIS < 15 (0-50)
[2019-02-23 17:47] LABS: Alanine Aminotransferase 36 IU/L (<35); Albumin 5.1 g/dL (3.5-5.0); Albumin Globulin Ratio 1.7 (1.0-2.8); Alkaline Phosphatase 209 U/L (38-126); Aspartate Aminotransferase 26 IU/L (14-36); Bilirubin Total 0.6 mg/dL (0.2-1.3); Blood Urea Nitrogen 25 mg/dL (7-17); Chloride 101 mmol/L (98-107); Estimated Glomerular Filt Rate > 60.0 mL/min (>60); Sodium 139 mmol/L (137-145); Total Protein 8.1 g/dL (6.3-8.2)
[2019-02-23 17:56] LABS: Carbon Dioxide 5 mmol/L (22-32); Glucose 616 mg/dL (70-100)
[2019-02-23 17:58] LABS: Procalcitonin 0.11 ng/mL (<0.5)
--- NOTE | 2019-02-23 17:59 | ED.GENADULT ---
HPI - General Adult General Chief complaint: Diabetic Problem Stated complaint: BODY ACHE WANTS TO THROW UP Time Seen by Provider: 02/23/19 17:59 Source: patient Mode of arrival: Ambulatory Limitations: no limitations History of Present Illness HPI narrative: 29-year-old female. Is a type 1 diabetic. Has had multiple admissions for DKA with most recent 1 being at the end of last month. Was discharged approximately 1 week ago after spending 24 hours in the hospital for DKA. Patient states that since she was discharged she has not felt well. Most of her prior DKA episodes have most likely been the results of indiscretion/lack of insulin. She states that over the past week she has been eating well and has been taking her insulin. States that since her last admission she has not followed up with her primary doctor. Has not seen her swedger. States she is taking her insulin. States there was no change in her insulin during her prior admission. Comes the emergency department today for abdominal pain, chest pain, problems breathing, body aches, nausea. These are the symptoms that she gets when she is in DKA. Related Data Home Medications Medication Instructions Recorded Confirmed Glucagon Emergency Kit (human) 1 mg SUBCUT DIRECTED 02/16/19 02/23/19 cholecalciferol (vitamin D3) 2,000 unit PO DAILY 02/16/19 02/23/19 [Vitamin D3] ergocalciferol (vitamin D2) 50,000 unit PO QWEEK 02/16/19 02/23/19 [Vitamin D2] insulin lispro [Humalog KwikPen 0 unit SUBCUT TID 02/16/19 02/23/19 Insulin] norethindrone (contraceptive) 0.35 mg PO DAILY 02/16/19 02/23/19 [[place]] Previous Rx's Medication Instructions Recorded Tresiba FlexTouch U-100 40 unit SUB-Q DAILY #15 ml 12/12/18 glucose 4 gram PO Q15M PRN #30 tab 12/12/18 Allergies Allergy/AdvReac Type Severity Reaction Status Date / Time arredondo [ARREDONDO] Allergy Intermediate Hives, Verified 02/16/19 14:14 pruritus iodine [IODINE] Allergy Intermediate rash, itchy Verified 02/16/19 14:14 morphine Allergy Intermediate Difficulty Verified 02/16/19 14:14 Breathing shellfish derived Allergy Intermediate rash Verified 02/16/19 14:14 [SHELLFISH DERIVED] adhesive [ADHESIVE] Allergy Unknown tape Verified 02/16/19 14:14 latex [LATEX] Allergy Unknown Hives Verified 02/16/19 14:14 Review of Systems Constitutional Constitutional: Reports chills, Reports fatigue, Denies fever(s), Reports lethargy and Reports malaise Cardiovascular Cardiovascular: Reports chest pain and Reports dyspnea Respiratory Respiratory: Denies cough and Reports dyspnea Gastrointestinal Gastrointestinal: Reports abdominal pain, Denies change in stool character, Reports nausea and Denies vomiting Genitourinary Genitourinary: Denies dysuria and Denies vaginal discharge Musculoskeletal Musculoskeletal: Reports myalgias and Reports arthralgias Integumentary/Breasts Skin/Breast: Denies rash Neurologic Neurologic: Denies behavioral changes Psychiatric Psychiatric: Denies behavioral changes Endocrine Endocrine: Reports fatigue Hematologic/Lymphatic Hematologic/Lymphatic: Denies easy bleeding and Denies easy bruising Allergic/Immunologic Allergic/Immunologic: Denies urticaria Patient History Medical History DKA (diabetic ketoacidoses) (Resolved) History of pyelonephritis (Resolved) Irregular menstrual cycle (Acute) Migraine headache (Chronic) Nephrolithiasis (Resolved) Type 1 diabetes mellitus (Chronic) Surgical History History of ureter stent (Resolved) Status post laser lithotripsy of ureteral calculus (Acute) Family History Father In good health Mother Cardiac disease Social History household members: significant other and family Smoking Status: Never smoker alcohol intake: never alcohol intake frequency: holidays/special occasions only Substance Use Type: does not use Exam Initial Vital Signs Initial Vital Signs: Vital Signs Temperature 98.9 F 02/23/19 16:22 Pulse Rate 119 H 02/23/19 16:22 Respiratory Rate 20 02/23/19 16:22 Blood Pressure 124/86 02/23/19 16:22 Pulse Oximetry 98 02/23/19 16:22 Const General: cooperative, well developed and well groomed Orientation: alert, awake and oriented x3 HENMT Head: normal to inspection and normocephalic Eyes Pupils: PERRL Chest Chest: No tenderness Resp Effort & Inspection: normal respiratory effort Auscultation: clear to auscultation bilaterally Cardio Rate: tachycardic Rhythm: regular rhythm GI Inspection: non-distended Palpation: soft and tender (Diffusely tender) Skin Lesions: no lesions Rashes: no rashes Neuro General: alert, awake and oriented x3 Cognition: normal cognition Speech: speech normal Extrem General: normal to inspection, capillary refill normal and No edema Psych Appearance: grossly normal and well kempt Course Orders Ordered: ED Orders 02/23/19 16:46 EKG-12 Lead Stat 02/23/19 17:00 Venous Blood Gas Stat 02/23/19 17:08 Complete Blood Count AUTO DIFF Stat Comprehensive Metabolic Panel Stat Ketones (Beta-Hydroxybutyrate) Stat Lactate (Lactic Acid) Stat Magnesium Stat Phosphorous Stat Test Serum,Qual Stat Procalcitonin Stat 02/23/19 17:31 Blood Culture Stat 02/23/19 17:50 Urine Microscopic Stat Sodium Chloride (Normal Saline 0.9%) 1,000 mls @ 200 mls/hr IV CONT BLAISE Insulin Human Regular 100 unit (/ Sodium Chloride) 100 mls @ 5 mls/hr IV TITRATE BLAISE; Protocol Discontinued Medications Hydromorphone HCl (Dilaudid) 0.5 mg IV NOW ONE Stop: 02/23/19 18:16 Sodium Chloride (Normal Saline 0.9%) 1,000 mls @ 1,000 mls/hr IV BOLUS ONE Stop: 02/23/19 17:25 Last Admin: 02/23/19 17:41 Dose: 1,000 mls/hr Documented by: SELMAANCE Ondansetron HCl (Zofran) 4 mg IV NOW ONE Stop: 02/23/19 16:27 Last Admin: 02/23/19 17:40 Dose: 4 mg Documented by: CVANCE Vital Signs Vital signs: Vital Signs - 8 hr 02/23/19 16:22 02/23/19 17:50 02/23/19 18:00 Temperature 98.9 F Pulse Rate 119 H 118 H 122 H Respiratory Rate 20 18 26 H Blood Pressure 124/86 Blood Pressure [Left Arm] 132/90 Blood Pressure [Right Arm] 127/81 Pulse Oximetry 98 100 100 Medical Decision Making Medical Records Medical records reviewed: Yes I reviewed the patient's medical records. Lab Data Lab results reviewed: Yes I reviewed the patient's lab results. Result diagrams: 02/23/19 17:08 02/23/19 17:08 Labs: Lab Results 02/23/19 02/23/19 02/23/19 Range/Units 17:00 17:08 17:08 WBC 9.8 (4.5-11.0) X10^3/uL RBC 4.70 (4.0-5.2) X10^6/uL Hgb 15.1 (12.0-16.0) g/dL Hct 45.8 (36-46) % MCV 97.5 D (80-100) fL MCH 32.2 (26-34) PG MCHC 33.0 (30-36) % RDW 12.6 (11.6-14.8) % Plt Count 417 H (150-400) X10^3/uL Neut % (Auto) 71.5 (50-75) % Lymph % (Auto) 21.3 L (25-40) % [place] % (Auto) 6.0 (3-14) % Eos % (Auto) 0.2 L (2-4) % Baso % (Auto) 1.0 (0-2) % Neut # (Auto) 7000 (3640-1264) /uL Lymph # (Auto) 2100 (6254-1301) /uL [place] # (Auto) 600 (0-900) /uL Eos # (Auto) 0 (0-450) /uL Baso # (Auto) 100 (0-100) /uL VBG pH 7.08 L* (7.33-7.43) VBG pCO2 16.0 L (45-50) mmHg VBG pO2 47 H (35-45) mmHg VBG HCO3 5 L (23-28) mmol/L VBG Total CO2 5 L (24-29) mmol/L VBG O2 Saturation 68 L (70-75) % VBG Base Excess -25.0 L (0-4) mmol/L Sodium (137-145) mmol/L Potassium (3.4-5.1) mmol/L Chloride (98-107) mmol/L Carbon Dioxide (22-32) mmol/L BUN (7-17) mg/dL Creatinine (0.52-1.04) mg/dL Estimated GFR (>60) mL/min BUN/Creatinine Ratio (6-22) Glucose (70-100) mg/dL Lactate (0.7-2.1) mmol/L Calcium (8.4-10.2) mg/dL Phosphorus (2.5-4.5) mg/dL Magnesium (1.6-2.3) mg/dL Total Bilirubin (0.2-1.3) mg/dL AST (14-36) IU/L ALT (<35) IU/L Alkaline Phosphatase (38-126) U/L Total Protein (6.3-8.2) g/dL Albumin (3.5-5.0) g/dL Globulin (1.7-4.1) g/dL Albumin/Globulin Ratio (1.0-2.8) Procalcitonin 0.11 (<0.5) ng/mL Serum , Qual (Negative) Ketones (<0.27) mmol/L 02/23/19 02/23/19 02/23/19 Range/Units 17:08 17:08 17:08 WBC (4.5-11.0) X10^3/uL RBC (4.0-5.2) X10^6/uL Hgb (12.0-16.0) g/dL Hct (36-46) % MCV (80-100) fL MCH (26-34) PG MCHC (30-36) % RDW (11.6-14.8) % Plt Count (150-400) X10^3/uL Neut % (Auto) (50-75) % Lymph % (Auto) (25-40) % [place] % (Auto) (3-14) % Eos % (Auto) (2-4) % Baso % (Auto) (0-2) % Neut # (Auto) (9556-2025) /uL Lymph # (Auto) (3846-9976) /uL [place] # (Auto) (0-900) /uL Eos # (Auto) (0-450) /uL Baso # (Auto) (0-100) /uL VBG pH (7.33-7.43) VBG pCO2 (45-50) mmHg VBG pO2 (35-45) mmHg VBG HCO3 (23-28) mmol/L VBG Total CO2 (24-29) mmol/L VBG O2 Saturation (70-75) % VBG Base Excess (0-4) mmol/L Sodium 139 (137-145) mmol/L Potassium 5.0 D (3.4-5.1) mmol/L Chloride 101 (98-107) mmol/L Carbon Dioxide 5 L* (22-32) mmol/L BUN 25 H (7-17) mg/dL Creatinine 1.00 (0.52-1.04) mg/dL Estimated GFR > 60.0 (>60) mL/min BUN/Creatinine Ratio 25.0 H (6-22) Glucose 616 H* D (70-100) mg/dL Lactate 1.2 (0.7-2.1) mmol/L Calcium 10.0 (8.4-10.2) mg/dL Phosphorus 6.0 H D (2.5-4.5) mg/dL Magnesium 2.4 H (1.6-2.3) mg/dL Total Bilirubin 0.6 (0.2-1.3) mg/dL AST 26 (14-36) IU/L ALT 36 H (<35) IU/L Alkaline Phosphatase 209 H (38-126) U/L Total Protein 8.1 (6.3-8.2) g/dL Albumin 5.1 H (3.5-5.0) g/dL Globulin 3.0 (1.7-4.1) g/dL Albumin/Globulin Ratio 1.7 (1.0-2.8) Procalcitonin (<0.5) ng/mL Serum , Qual (Negative) Ketones 15.63 H (<0.27) mmol/L 02/23/19 Range/Units 17:08 WBC (4.5-11.0) X10^3/uL RBC (4.0-5.2) X10^6/uL Hgb (12.0-16.0) g/dL Hct (36-46) % MCV (80-100) fL MCH (26-34) PG MCHC (30-36) % RDW (11.6-14.8) % Plt Count (150-400) X10^3/uL Neut % (Auto) (50-75) % Lymph % (Auto) (25-40) % [place] % (Auto) (3-14) % Eos % (Auto) (2-4) % Baso % (Auto) (0-2) % Neut # (Auto) (0713-5280) /uL Lymph # (Auto) (9209-1406) /uL [place] # (Auto) (0-900) /uL Eos # (Auto) (0-450) /uL Baso # (Auto) (0-100) /uL VBG pH (7.33-7.43) VBG pCO2 (45-50) mmHg VBG pO2 (35-45) mmHg VBG HCO3 (23-28) mmol/L VBG Total CO2 (24-29) mmol/L VBG O2 Saturation (70-75) % VBG Base Excess (0-4) mmol/L Sodium (137-145) mmol/L Potassium (3.4-5.1) mmol/L Chloride (98-107) mmol/L Carbon Dioxide (22-32) mmol/L BUN (7-17) mg/dL Creatinine (0.52-1.04) mg/dL Estimated GFR (>60) mL/min BUN/Creatinine Ratio (6-22) Glucose (70-100) mg/dL Lactate (0.7-2.1) mmol/L Calcium (8.4-10.2) mg/dL Phosphorus (2.5-4.5) mg/dL Magnesium (1.6-2.3) mg/dL Total Bilirubin (0.2-1.3) mg/dL AST (14-36) IU/L ALT (<35) IU/L Alkaline Phosphatase (38-126) U/L Total Protein (6.3-8.2) g/dL Albumin (3.5-5.0) g/dL Globulin (1.7-4.1) g/dL Albumin/Globulin Ratio (1.0-2.8) Procalcitonin (<0.5) ng/mL Serum , Qual Negative (Negative) Ketones (<0.27) mmol/L Urine Dip Bedside Urine Glucose 1000 mg/dl Bedside Urine Bilirubin - Negative Bedside Urine Ketone +++ 80 Urine Specific [place] 1.015 Bedside Urine Occult Blood +/- Bedside Urine pH 6.0 Bedside Urine Protein + 30 Bedside Urine Urobilinogen - Negative Bedside Urine Nitrite - Negative Bedside Urine Leukocytes - Negative Esterase Point of care testing: Urine Dip Bedside Urine Glucose 1000 mg/dl Bedside Urine Bilirubin - Negative Bedside Urine Ketone +++ 80 Urine Specific [place] 1.015 Bedside Urine Occult Blood +/- Bedside Urine pH 6.0 Bedside Urine Protein + 30 Bedside Urine Urobilinogen - Negative Bedside Urine Nitrite - Negative Bedside Urine Leukocytes - Negative Esterase ECG Data Attestation: I personally reviewed and interpreted this ECG as follows: Prior ECG tracings: not available for review Interpretation: Sinus tachycardia Ventricular rate of 112 Normal axis Normal QRS Normal QTC Nonspecific ST T wave changes MDM Narrative Medical decision making narrative: Patient is a known type 1 diabetic with multiple admissions for DKA presents today with physical exam and labs consistent with DKA. He has an anion gap of 33. Ketones, acidotic, hyperglycemic. Potassium Mag and phosphorus noted. Patient has no signs of infection. test is negative. Her prior admissions for DKA have most likely been secondary to indiscretion/lack of insulin. Patient states she has been taking her insulin since her last admission and also states that she has tried to change her diet. Patient was given fluids. Insulin drip ordered. Discussed the case with Dr. Weinberg with Internal Medicine who will admit. Discussed diagnosis and admission with the patient. She expressed understanding and agreement. Critical Care Time Critical Care Time Critical Care Time: Yes Total Critical Care Time: 35 Attestation: The high probability of a clinically significant, sudden or life threatening deterioration of the endocrine system(s) required my full and direct attention, intervention and personal management. The aggregate critical care time was 35 minutes. This time is in addition to time spent performing reported procedures but includes the following: [] Data Review and interpretation [] Patient assessment and monitoring of vital signs [] Documentation [] Medication orders and management Discharge Plan Departure Patient Disposition: Admitted As Inpatient Clinical Impression: DKA (diabetic ketoacidoses) Qualifiers: Diabetes mellitus type: type 1 Diabetes mellitus complication detail: without coma Qualified Code(s): E10.10 - Type 1 diabetes mellitus with ketoacidosis without coma
[2019-02-23 18:15] LABS: Ketones (Beta-Hydroxybutyrate) 15.63 mmol/L (<0.27)
[2019-02-23 18:26] LABS: Pregnancy Test Serum,Qual Negative (Negative)
[2019-02-23 18:28] LABS: Magnesium 2.4 mg/dL (1.6-2.3)
[2019-02-23] MEDS: INSULIN REGULAR, HUMAN 100 UNIT in SODIUM CHLORIDE 0.9% 100 ML IV (19:00)
[2019-02-23 19:01] LABS: RBC Urine 0-1/HPF (0-5/HPF)
[2019-02-23 19:02] LABS: Bacteria Urine Few (2-10); Culture Indicated Urine Specimen Cultured; Squamous Epithelial Cell Urine 1-5 /HPF (0-5/HPF); WBC Urine 5-10/HPF (0-5/HPF)
[2019-02-23] MEDS: SODIUM CHLORIDE 0.9% 1,000 ML 200 ML IV (19:04)
[2019-02-23] MEDS: HYDROMORPHONE 0.5 MG INJ IV ×2 (19:04→22:00)
--- NOTE | 2019-02-23 19:13 | PC.NURSE ---
Insulin drip started at 5ml/hour per order. Lab glucose at 1700 was 616 Patient medicated with the dilaudid and feels much better now. Pain level is 0/10
--- NOTE | 2019-02-23 20:34 | PC.NURSE ---
Addendum entered by Selina Rhodes R.N. 02/23/19 22:28: 2225 - Lab results gone over with hospitalist. K-rider ordered per protocol and per order from hospitalist. Addendum entered by Selina Rhodes R.N. 02/23/19 22:03: 2200 - Patient complains of some chest pain. Hospitalist notified and states she is aware and to treat with dilaudid per orders. Medicated per emar. Original Note: Admit Note Patient admitted to room 103. Brought over on stretcher by nursing staff. Able to walk self to bed with 2 person assist. Alert and oriented with pleasant affect, but is drowsy. Noted to be tachycardic in the 120's. Hospitalist notified. Oriented to room and call light, call light within reach.
--- NOTE | 2019-02-23 21:37 | PM.HP.1 ---
History of Present Illness History of Present Illness Date Patient Seen: 02/23/19 Time Patient Seen: 21:07 Chief complaint: BODY ACHE WANTS TO THROW UP Narrative: The patient is a 29-year-old female with PMH of DM Type I, migraine headaches, nephrolithiasis, irregular menses, and vitamin-D deficiency. Patient presented to the ED on 02/23/2019 out of concern for persistent nausea and epigastric discomfort. Associated symptoms include decreased food and fluid intake, malaise, and myalgia. Patient denies fever and chills. Denies URI symptoms, however has had mild intermittent cough. Denies symptoms of a UTI. Denies experiencing diarrhea, melena, or hematochezia. Denies exposure to ill contacts. Patient has had multiple recurrent hospitalizations for DKA in the past year. Most recently, a 24 hours stay with discharge on 02/17/2019. Patient does not feel that she is at her baseline health and has not been getting better since discharge on 02/17. Reports adherence with insulin regimen. Initial ED workup revealed... EKG, 02/23/2019 @ 1646. ST (v-rate 112). Non-specific T-wave abnormality. Labs, 02/23/2019 (1708) WBC 9.[address]:T 417 Na 139 K 5.0 Mg 2.4 Cl 101 Ca 10 PO4 6 CO2 5 BUN 25 Cr 1.0 BUN:Cr 25 Glu 616 sKetones 15.63 Lactate 1.2 PCT 0.11 T.Bili 0.6 AST 26 ALT36 Alk Phos 209 Alb 5.1 Serum NEGATIVE Urine (dip stick). WBC 5-10 HPF, bacteria 2-10 HPF (few) Urine Cx collected in ED, results pending Venous ABG, 02/23/19 (1700) pH 7.08 pCO2 16 pO2 47 HCO3 5 Base Excess -25 Patient History Medical History DKA (diabetic ketoacidoses) (Resolved) History of pyelonephritis (Resolved) Irregular menstrual cycle (Acute) Migraine headache (Chronic) Nephrolithiasis (Resolved) Type 1 diabetes mellitus (Chronic) Surgical History History of ureter stent (Resolved) Status post laser lithotripsy of ureteral calculus (Acute) Family & Social History Family History Father In good health Mother Cardiac disease Social History: household members significant other,family Safety & Behavioral: Feels Safe in Current Yes Environment Been Physically Hurt or No Threatened By a Person Suicidal Ideation Description None Suicide Plan Description No Plan Tobacco & Substance use: Smoking Status Never smoker alcohol intake never alcohol intake frequency holiday/special occasion Substance Use Type does not use Meds Home Medications and Allergies Home Medications Medication Instructions Recorded Confirmed Type Tresiba FlexTouch U-100 40 unit SUB-Q DAILY #15 ml 12/12/18 02/16/19 Rx glucose 4 gram PO Q15M PRN #30 tab 12/12/18 02/23/19 Rx Glucagon Emergency Kit (human) 1 mg SUBCUT DIRECTED 02/16/19 02/23/19 History cholecalciferol (vitamin D3) 2,000 unit PO DAILY 02/16/19 02/23/19 History [Vitamin D3] ergocalciferol (vitamin D2) 50,000 unit PO QWEEK 02/16/19 02/23/19 History [Vitamin D2] insulin lispro [Humalog KwikPen 0 unit SUBCUT TID 02/16/19 02/23/19 History Insulin] norethindrone (contraceptive) 0.35 mg PO DAILY 02/16/19 02/23/19 History [[place]] Allergies Allergy/AdvReac Type Severity Reaction Status Date / Time arredondo [ARREDONDO] Allergy Intermediate Hives, Verified 02/16/19 14:14 pruritus iodine [IODINE] Allergy Intermediate rash, itchy Verified 02/16/19 14:14 morphine Allergy Intermediate Difficulty Verified 02/16/19 14:14 Breathing shellfish derived Allergy Intermediate rash Verified 02/16/19 14:14 [SHELLFISH DERIVED] adhesive [ADHESIVE] Allergy Unknown tape Verified 02/16/19 14:14 latex [LATEX] Allergy Unknown Hives Verified 02/16/19 14:14 Review of Systems Review of Systems ROS Unobtainable: All systems reviewed & are unremarkable except as noted in HPI and below Exam Vital Signs (past 8 hours): - 02/23/19 16:22 02/23/19 17:50 11/04/19 18:00 Temperature 98.9 F Pulse Rate 119 H 118 H 122 H Respiratory Rate 20 18 26 H Blood Pressure 124/86 Blood Pressure [Left Arm] 132/90 Blood Pressure [Right Arm] 127/81 Pulse Oximetry 98 100 100 02/23/19 19:11 02/23/19 19:45 Temperature 99.1 F Pulse Rate 122 H 123 H Respiratory Rate 19 17 Blood Pressure 139/78 Blood Pressure [Left Arm] Blood Pressure [Right Arm] 128/87 Pulse Oximetry 100 100 Oxygen Delivery Method Room Air Objective Labs Result Diagrams: 02/23/19 17:08 02/24/19 04:50 Labs: Laboratory Results - last 24 hr 02/23/19 02/23/19 02/23/19 17:00 17:08 17:08 WBC 9.8 RBC 4.70 Hgb 15.1 Hct 45.8 MCV 97.5 D MCH 32.2 MCHC 33.0 RDW 12.6 Plt Count 417 H Neut % (Auto) 71.5 Lymph % (Auto) 21.3 L [place] % (Auto) 6.0 Eos % (Auto) 0.2 L Baso % (Auto) 1.0 Neut # (Auto) 7000 Lymph # (Auto) 2100 [place] # (Auto) 600 Eos # (Auto) 0 Baso # (Auto) 100 VBG pH 7.08 L* VBG pCO2 16.0 L VBG pO2 47 H VBG HCO3 5 L VBG Total CO2 5 L VBG O2 Saturation 68 L VBG Base Excess -25.0 L Sodium Potassium Chloride Carbon Dioxide BUN Creatinine Estimated GFR BUN/Creatinine Ratio Glucose Lactate Calcium Phosphorus Magnesium Total Bilirubin AST ALT Alkaline Phosphatase Total Protein Albumin Globulin Albumin/Globulin Ratio Procalcitonin 0.11 Serum , Qual Urine RBC Urine WBC Ur Squamous Epith Cells Urine Bacteria Ur Culture Indicated? Ketones 02/23/19 02/23/19 02/23/19 17:08 17:08 17:08 WBC RBC Hgb Hct MCV MCH MCHC RDW Plt Count Neut % (Auto) Lymph % (Auto) [place] % (Auto) Eos % (Auto) Baso % (Auto) Neut # (Auto) Lymph # (Auto) [place] # (Auto) Eos # (Auto) Baso # (Auto) VBG pH VBG pCO2 VBG pO2 VBG HCO3 VBG Total CO2 VBG O2 Saturation VBG Base Excess Sodium 139 Potassium 5.0 D Chloride 101 Carbon Dioxide 5 L* BUN 25 H Creatinine 1.00 Estimated GFR > 60.0 BUN/Creatinine Ratio 25.0 H Glucose 616 H* D Lactate 1.2 Calcium 10.0 Phosphorus 6.0 H D Magnesium 2.4 H Total Bilirubin 0.6 AST 26 ALT 36 H Alkaline Phosphatase 209 H Total Protein 8.1 Albumin 5.1 H Globulin 3.0 Albumin/Globulin Ratio 1.7 Procalcitonin Serum , Qual Urine RBC Urine WBC Ur Squamous Epith Cells Urine Bacteria Ur Culture Indicated? Ketones 15.63 H 02/23/19 02/23/19 17:08 17:50 WBC RBC Hgb Hct MCV MCH MCHC RDW Plt Count Neut % (Auto) Lymph % (Auto) [place] % (Auto) Eos % (Auto) Baso % (Auto) Neut # (Auto) Lymph # (Auto) [place] # (Auto) Eos # (Auto) Baso # (Auto) VBG pH VBG pCO2 VBG pO2 VBG HCO3 VBG Total CO2 VBG O2 Saturation VBG Base Excess Sodium Potassium Chloride Carbon Dioxide BUN Creatinine Estimated GFR BUN/Creatinine Ratio Glucose Lactate Calcium Phosphorus Magnesium Total Bilirubin AST ALT Alkaline Phosphatase Total Protein Albumin Globulin Albumin/Globulin Ratio Procalcitonin Serum , Qual Negative Urine RBC 0-1/hpf Urine WBC 5-10/hpf H Ur Squamous Epith Cells 1-5 /hpf Urine Bacteria Few (2-10) H Ur Culture Indicated? Specimen cultured Ketones Assessment & Plan Assessment & Plan narrative: Patient is being admitted into the ICU for management of DKA. DKA (moderaet) w/o coma associated w/ DM Type I, acute, present on admission, active BG 616. sKetones 15.63. Anion Gap 33 Venous ABG. pH 7.05 pCO2 16 pO2 47 HCO3 5 - Admit to ICU - Baseline EKG, telemetry monitoring - In ED received 1L IVF in ED; then, started on NS 200 ml/hr. Keep on NS. Will need repeat lab, then re-evaluate Change IVF to D5 1/2 NS once BG is 250 gm/dl or less - Continue insulin gtt per protocol and until AG is closed re: correct hyperglycemia / ketoacidosis; Q1H glucose checks - BMP, Phos, Mg now and Q4H re: monitor and correct e-lyte deficiencies - Keep NPO, ice chips ok - ABG in am - Supportive care w/ anti-emetics and IV pain med - Blood cx, collected in ED, pending. Obtain RVP. Metabolic Acidosis w/ elevated AG, active - See POC for DKA - Continue insulin gtt until AG is closed. Initial AG 33. YURI, acute, present on admission, active - 2/2 DKA and associated hypovolemia - sCr 1.0 (baseline 0.6-0.7) - Treat DKA, IVF, optimize renal perfusion - Trend renal function w/ lab DM Type I (uncontrolled) chronic condition, present on admission, active - A1C > 14 on 02/17/2019 - Multiple recurrent DKA w/ hospital admission and treatment - [employer] regimen consists of Tresiba and Humalon per SSI. Prior documented h/o non-adherence w/ insulin regimen. Holding for now, treatign DKA w/ insulin gtt until AG is closed. - Follows w/ endocrinology, has an appointment scheduled on Sat (02/27/19) Epigastric discomfort / abdominal pain, present on admission, active - Suspected to be in the setting of metabolic acidosis, sever hypovolemia - Check Trop - EKG non-ischemic - Dilaudid 0.5 mg IV Q6h prn Abnormal urinalysis), acute vs subacute, present on admission, active - cystitis vs abnormal urine. - urine cx pending - patient is asymptomatic for UTI symptoms, hold off on further ABX therapy (pending urine cx resutls) Full Code. Mother is the surrogate decision maker. VTE prophylaxis w/ SCDs and heparin sq Home medications reviewed and reconciled accordingly. Quality VTE Deep Vein Thrombosis/Pulmonary Embolism Present on Admission: No
[2019-02-23 22:10] LABS: BUN Creatinine Ratio 24.4 (6-22); Blood Urea Nitrogen 22 mg/dL (7-17); Calcium 9.4 mg/dL (8.4-10.2); Chloride 117 mmol/L (98-107); Estimated Glomerular Filt Rate > 60.0 mL/min (>60); Glucose 264 mg/dL (70-100); HEMOLYSIS < 15 (0-50); Magnesium 2.3 mg/dL (1.6-2.3); Phosphorous 3.2 mg/dL (2.5-4.5); Potassium 4.2 mmol/L (3.4-5.1); Sodium 147 mmol/L (137-145)
[2019-02-23 22:20] LABS: Carbon Dioxide 9 mmol/L (22-32)
[2019-02-23] MEDS: DEXTROSE 5%-0.45% NS 1,000 ML 150 ML IV (22:36)
[2019-02-23 22:49] LABS: Creatine Kinase 28 U/L (30-135)
[2019-02-23] MEDS: POTASSIUM CHLORIDE 20 MEQ in SODIUM CHLORIDE 0.9% 250 ML 130 ML IV (22:57)
[2019-02-23 23:02] LABS: Troponin I < 0.012 ng/mL (0.01-0.034)
[2019-02-24] VITALS (8 sets, daily range): BP systolic 106–119; BP diastolic 55–70; PULSE 90–108; RESP 11–16; TEMP 36.7–37.3; O2SAT 96–100
[2019-02-24 00:13] LABS: Adenovirus Not Detected (Not Detect); Bordetella pertussis Not Detected (Not Detect); Chlamydophila pneumoniae Not Detected (Not Detect); Coronavirus 229E Not Detected (Not Detect); Coronavirus HKU1 Not Detected (Not Detect); Coronavirus NL 63 Not Detected (Not Detect); Coronavirus OC43 Not Detected (Not Detect); Human Metapneumovirus Not Detected (Not Detect); Human Rhinovirus/Enterovirus Not Detected (Not Detect); Influenza A Not Detected (Not Detect); Influenza B Not Detected (Not Detect); Mycoplasma pneumoniae Not Detected (Not Detect); Parainfluenza Virus 1 Not Detected (Not Detect); Parainfluenza Virus 2 Not Detected (Not Detect); Parainfluenza Virus 3 Not Detected (Not Detect); Parainfluenza Virus 4 Not Detected (Not Detect); Respiratory Syncytial Virus Not Detected (Not Detect)
--- NOTE | 2019-02-24 00:24 | PC.NURSE ---
Addendum entered by Ariana Romero R.N. 02/24/19 06:52: UA collected and pt voided 1350cc at 0630, BGC at 0640 was 163, K rider running as per protocol. Addendum entered by Ariana Romero R.N. 02/24/19 06:02: Anion gap per 0450 lab is 8. Addendum entered by Ariana Romero R.N. 02/24/19 05:56: BGC at 0430 was 150, insulin gtt changed to 0.9unit/hr, at 0535 BGC was 151 and insulin gtt was increased to 2.3units/hr as ordered. Addendum entered by Ariana Romero R.N. 02/24/19 01:34: 0130 BGC was 167, insulin gtt changed to 2.3units/hr, Pt c/o of increasing low sternal pain, was 3/10 at midnight and now is 7/10, notified the hospitalist and received order for one time dose of Flexeril and prn PO APAP. Flexeril given at this time. Pt has declined the APAP but was encouraged to try it if pt has miminal effectiveness from Flexeril. Pt notified that next available dose of Dilaudid will not be until 0400, she stated that she understands. Addendum entered by Ariana Romero R.N. 02/24/19 00:45: BGC at 0030 was 201, not change to gtts or fluids at this time. Lab in to do draw. Original Note: NOC Note: BGC at 2330 was 211. No change to gtts or fluids at this time. Pt remains tachy at 110-120bpm. Pt denies nausea and denies SOB.
[2019-02-24 01:00] LABS: BUN Creatinine Ratio 25.6 (6-22); Blood Urea Nitrogen 23 mg/dL (7-17); Calcium 9.2 mg/dL (8.4-10.2); Carbon Dioxide 14 mmol/L (22-32); Chloride 119 mmol/L (98-107); Estimated Glomerular Filt Rate > 60.0 mL/min (>60); Glucose 185 mg/dL (70-100); HEMOLYSIS < 15 (0-50); Phosphorous 2.6 mg/dL (2.5-4.5); Potassium 4.3 mmol/L (3.4-5.1); Sodium 145 mmol/L (137-145)
[2019-02-24] MEDS: CYCLOBENZAPRINE 5 MG TABLET PO (01:32)
[2019-02-24] MEDS: ACETAMINOPHEN 325 MG TABLET 650 MG PO (02:36)
[2019-02-24] MEDS: HYDROMORPHONE 0.5 MG INJ IV (04:05)
[2019-02-24] MEDS: DEXTROSE 5%-0.45% NS 1,000 ML 150 ML IV (05:12)
[2019-02-24 05:30] LABS: BUN Creatinine Ratio 33.3 (6-22); Blood Urea Nitrogen 20 mg/dL (7-17); Calcium 8.9 mg/dL (8.4-10.2); Carbon Dioxide 16 mmol/L (22-32); Chloride 118 mmol/L (98-107); Estimated Glomerular Filt Rate > 60.0 mL/min (>60); Glucose 156 mg/dL (70-100); HEMOLYSIS < 15 (0-50); Magnesium 1.9 mg/dL (1.6-2.3); Phosphorous 2.9 mg/dL (2.5-4.5); Potassium 3.9 mmol/L (3.4-5.1); Sodium 142 mmol/L (137-145)
[2019-02-24 05:55] LABS: Fractionated Inspired Oxygen 21; HCO3 ABG 14 mmol/L (22-26); Oxygen Saturation ABG 98 % (95-100); PCO2 ABG 32.4 mmHg (35-45); PO2 ABG 121 mmHg (80-100); TCO2 ABG 15 mmol/L (21-31); pH ABG 7.23 (7.35-7.45)
[2019-02-24] MEDS: POTASSIUM CHLORIDE 40 MEQ in SODIUM CHLORIDE 0.9% 500 ML 130 ML IV ×2 (06:34→19:17)
[2019-02-24 06:44] LABS: UR Morphine/Opiate cutoff 300 Negative (Negative); Ur Creatinine Normal (Normal); Ur Specific Gravity Normal (Normal); Urine Amphetamines Negative (Negative); Urine Barbiturates Negative (Negative); Urine Benzodiazepines Negative (Negative); Urine Cocaine Negative (Negative); Urine MDMA Negative (Negative); Urine Methadone Negative (Negative); Urine Methamphetamines Negative (Negative); Urine Oxycodone Negative (Negative); Urine Phencyclidine Negative (Negative); Urine Tetrahydrocannabinol Negative (Negative); Urine Tricyclic Antidepressant Negative (Negative); Urine pH Normal (Normal)
[2019-02-24] MEDS: DEXTROSE 10 % IN WATER 1,000 ML 45 ML IV (08:32)
[2019-02-24] MEDS: HEPARIN 5,000 UNIT/ML VIAL 5000 UNIT SUBCUT ×2 (08:52→21:23)
--- NOTE | 2019-02-24 10:30 | DI.RAD.S_ITS ---
PROCEDURE: XR CHEST 1V INDICATIONS: chest pain with cough TECHNIQUE: One view of the chest was acquired. COMPARISON: [facility], CR, XR CHEST 1V, 09/27/2018, 8:30. FINDINGS: Surgical changes and devices: None. Lungs and pleura: Lungs are clear. No pleural effusions or pneumothorax. Mediastinum: Mediastinal contours appear normal. Heart size is normal. Bones and chest wall: No suspicious bony lesions. Overlying soft tissues appear unremarkable. IMPRESSION: No acute cardiopulmonary disease process. Dictated by: Arleth Polanco MD, PhD on 02/24/2019 at 10:58 Approved by: Arleth Polanco MD, PhD on 02/24/2019 at 10:59
--- NOTE | 2019-02-24 10:31 | PM.PN.1 ---
Subjective Subjective Date Patient Seen: 02/24/19 Time Patient Seen: 10:31 Interval history: Sarabjit Jimenes is a 29-year-old female with past medical history of type 1 diabetes who was admitted with 2nd episode of DKA in the past week. Her anion gap is currently closed but her bicarb remains elevated and she remains on insulin drip. She complained of mild right-sided chest pain and a nonproductive cough, but denies fevers or chills. She complains of persistent nausea since being discharged from the hospital that did not completely resolve. She reports compliance with her medications and reports that her diet has been okay recently. I have placed a call to her rfid engineer at [facility], Dr. Dominguez to discuss any potential changes that may be able to be made prior to her next appointment. Her next scheduled follow-up is on 02/27. Exam Vital Signs (past 8 hours): - 02/24/19 04:00 02/24/19 08:01 02/24/19 08:53 Temperature 98.7 F 98.7 F Pulse Rate 106 H 94 H 106 H Respiratory Rate 14 12 15 Blood Pressure 117/56 L 118/55 L Pulse Oximetry 96 100 100 Oxygen Delivery Method Room Air Oxygen Flow Rate 0 Narrative Exam Narrative: GENERAL APPEARANCE: Mildly ill-appearing female, appears fatigued and pale. SKIN: Inspection of the skin reveals no rashes, ulcerations or petechiae. HEENT: The sclerae were anicteric and conjunctivae were pink and moist. Extraocular movements were intact and pupils were equal, round with normal accommodation. External inspection of the ears and nose showed no scars, lesions, or masses. Lips, teeth, and gums showed normal mucosa. The oral mucosa, hard and soft palate, tongue and posterior pharynx were unremarkable. NECK: Supple and symmetric. There was no thyroid enlargement, and no tenderness, or masses were felt. CHEST: Normal AP diameter and normal contour without any kyphoscoliosis. LUNGS: Auscultation of the lungs revealed no wheezes, rhonchi, or rales. CARDIOVASCULAR: There is mild tachycardia without any murmurs, gallops, rubs. Peripheral pulses were 2+ and symmetric. ABDOMEN: Soft and nontender with normal bowel sounds. No ascites was noted. MUSCULOSKELETAL: There was no tenderness or effusions noted. Muscle strength and tone were normal. EXTREMITIES: No cyanosis, clubbing or edema. NEUROLOGIC: Alert and oriented x 3. Normal affect. Strength is +5/5 in the Upper Extremities and Lower Extremities Bilaterally. Sensation to touch was normal. Objective Labs Result Diagrams: 02/23/19 17:08 02/24/19 10:05 Labs: Laboratory Results - last 24 hr 02/23/19 02/23/19 02/23/19 17:00 17:08 17:08 WBC 9.8 RBC 4.70 Hgb 15.1 Hct 45.8 MCV 97.5 D MCH 32.2 MCHC 33.0 RDW 12.6 Plt Count 417 H Neut % (Auto) 71.5 Lymph % (Auto) 21.3 L [place] % (Auto) 6.0 Eos % (Auto) 0.2 L Baso % (Auto) 1.0 Neut # (Auto) 7000 Lymph # (Auto) 2100 [place] # (Auto) 600 Eos # (Auto) 0 Baso # (Auto) 100 ABG pH ABG pCO2 ABG pO2 ABG HCO3 ABG Total CO2 ABG O2 Saturation ABG Base Excess VBG pH 7.08 L* VBG pCO2 16.0 L VBG pO2 47 H VBG HCO3 5 L VBG Total CO2 5 L VBG O2 Saturation 68 L VBG Base Excess -25.0 L FiO2 Sodium Potassium Chloride Carbon Dioxide BUN Creatinine Estimated GFR BUN/Creatinine Ratio Glucose Lactate Calcium Phosphorus Magnesium Total Bilirubin AST ALT Alkaline Phosphatase Total Creatine Kinase CK-MB (CK-2) CK-MB (CK-2) Rel Index Troponin I Total Protein Albumin Globulin Albumin/Globulin Ratio Procalcitonin 0.11 Serum , Qual Urine RBC Urine WBC Ur Squamous Epith Cells Urine Bacteria Ur Culture Indicated? Nasal Screen MRSA (PCR) U Morph 300 ng/mL cutoff Ur Oxycodone Screen Urine Methadone Screen Ur Barbiturates Screen U Tricyclic Antidepress Ur Phencyclidine Scrn Ur Amphetamines Screen U Methamphetamines Scrn Ur MDMA Scrn (Ecstasy) U Benzodiazepines Scrn Urine Cocaine Screen U Marijuana (THC) Screen Ketones Chlamy pneumoniae PCR Adenovirus (PCR) B.parapertussis DNA PCR Coronavirus OC43 (PCR) Coronavirus HKU1 (PCR) Coronavirus 229E (PCR) Coronavirus NL63 (PCR) Human Metapneumovir PCR Influenza Type A (PCR) Influenza Type B (PCR) M. pneumoniae (PCR) Parainfluenza 1 (PCR) Parainfluenza 2 (PCR) Parainfluenza 3 (PCR) Parainfluenza 4 (PCR) RSV (PCR) Entero/Rhino (PCR) 02/23/19 02/23/19 02/23/19 17:08 17:08 17:08 WBC RBC Hgb Hct MCV MCH MCHC RDW Plt Count Neut % (Auto) Lymph % (Auto) [place] % (Auto) Eos % (Auto) Baso % (Auto) Neut # (Auto) Lymph # (Auto) [place] # (Auto) Eos # (Auto) Baso # (Auto) ABG pH ABG pCO2 ABG pO2 ABG HCO3 ABG Total CO2 ABG O2 Saturation ABG Base Excess VBG pH VBG pCO2 VBG pO2 VBG HCO3 VBG Total CO2 VBG O2 Saturation VBG Base Excess FiO2 Sodium 139 Potassium 5.0 D Chloride 101 Carbon Dioxide 5 L* BUN 25 H Creatinine 1.00 Estimated GFR > 60.0 BUN/Creatinine Ratio 25.0 H Glucose 616 H* D Lactate 1.2 Calcium 10.0 Phosphorus 6.0 H D Magnesium 2.4 H Total Bilirubin 0.6 AST 26 ALT 36 H Alkaline Phosphatase 209 H Total Creatine Kinase CK-MB (CK-2) CK-MB (CK-2) Rel Index Troponin I Total Protein 8.1 Albumin 5.1 H Globulin 3.0 Albumin/Globulin Ratio 1.7 Procalcitonin Serum , Qual Urine RBC Urine WBC Ur Squamous Epith Cells Urine Bacteria Ur Culture Indicated? Nasal Screen MRSA (PCR) U Morph 300 ng/mL cutoff Ur Oxycodone Screen Urine Methadone Screen Ur Barbiturates Screen U Tricyclic Antidepress Ur Phencyclidine Scrn Ur Amphetamines Screen U Methamphetamines Scrn Ur MDMA Scrn (Ecstasy) U Benzodiazepines Scrn Urine Cocaine Screen U Marijuana (THC) Screen Ketones 15.63 H Chlamy pneumoniae PCR Adenovirus (PCR) B.parapertussis DNA PCR Coronavirus OC43 (PCR) Coronavirus HKU1 (PCR) Coronavirus 229E (PCR) Coronavirus NL63 (PCR) Human Metapneumovir PCR Influenza Type A (PCR) Influenza Type B (PCR) M. pneumoniae (PCR) Parainfluenza 1 (PCR) Parainfluenza 2 (PCR) Parainfluenza 3 (PCR) Parainfluenza 4 (PCR) RSV (PCR) Entero/Rhino (PCR) 02/23/19 02/23/19 02/23/19 17:08 17:50 19:50 WBC RBC Hgb Hct MCV MCH MCHC RDW Plt Count Neut % (Auto) Lymph % (Auto) [place] % (Auto) Eos % (Auto) Baso % (Auto) Neut # (Auto) Lymph # (Auto) [place] # (Auto) Eos # (Auto) Baso # (Auto) ABG pH ABG pCO2 ABG pO2 ABG HCO3 ABG Total CO2 ABG O2 Saturation ABG Base Excess VBG pH VBG pCO2 VBG pO2 VBG HCO3 VBG Total CO2 VBG O2 Saturation VBG Base Excess FiO2 Sodium Potassium Chloride Carbon Dioxide BUN Creatinine Estimated GFR BUN/Creatinine Ratio Glucose Lactate Calcium Phosphorus Magnesium Total Bilirubin AST ALT Alkaline Phosphatase Total Creatine Kinase CK-MB (CK-2) CK-MB (CK-2) Rel Index Troponin I Total Protein Albumin Globulin Albumin/Globulin Ratio Procalcitonin Serum , Qual Negative Urine RBC 0-1/hpf Urine WBC 5-10/hpf H Ur Squamous Epith Cells 1-5 /hpf Urine Bacteria Few (2-10) H Ur Culture Indicated? Specimen cultured Nasal Screen MRSA (PCR) Negative for mrsa U Morph 300 ng/mL cutoff Ur Oxycodone Screen Urine Methadone Screen Ur Barbiturates Screen U Tricyclic Antidepress Ur Phencyclidine Scrn Ur Amphetamines Screen U Methamphetamines Scrn Ur MDMA Scrn (Ecstasy) U Benzodiazepines Scrn Urine Cocaine Screen U Marijuana (THC) Screen Ketones Chlamy pneumoniae PCR Adenovirus (PCR) B.parapertussis DNA PCR Coronavirus OC43 (PCR) Coronavirus HKU1 (PCR) Coronavirus 229E (PCR) Coronavirus NL63 (PCR) Human Metapneumovir PCR Influenza Type A (PCR) Influenza Type B (PCR) M. pneumoniae (PCR) Parainfluenza 1 (PCR) Parainfluenza 2 (PCR) Parainfluenza 3 (PCR) Parainfluenza 4 (PCR) RSV (PCR) Entero/Rhino (PCR) 02/23/19 02/23/19 02/23/19 21:46 21:46 22:50 WBC RBC Hgb Hct MCV MCH MCHC RDW Plt Count Neut % (Auto) Lymph % (Auto) [place] % (Auto) Eos % (Auto) Baso % (Auto) Neut # (Auto) Lymph # (Auto) [place] # (Auto) Eos # (Auto) Baso # (Auto) ABG pH ABG pCO2 ABG pO2 ABG HCO3 ABG Total CO2 ABG O2 Saturation ABG Base Excess VBG pH VBG pCO2 VBG pO2 VBG HCO3 VBG Total CO2 VBG O2 Saturation VBG Base Excess FiO2 Sodium 147 H Potassium 4.2 Chloride 117 H Carbon Dioxide 9 L* BUN 22 H Creatinine 0.90 Estimated GFR > 60.0 BUN/Creatinine Ratio 24.4 H Glucose 264 H D Lactate Calcium 9.4 Phosphorus 3.2 D Magnesium 2.3 Total Bilirubin AST ALT Alkaline Phosphatase Total Creatine Kinase 28 L CK-MB (CK-2) TNP CK-MB (CK-2) Rel Index TNP Troponin I < 0.012 Total Protein Albumin Globulin Albumin/Globulin Ratio Procalcitonin Serum , Qual Urine RBC Urine WBC Ur Squamous Epith Cells Urine Bacteria Ur Culture Indicated? Nasal Screen MRSA (PCR) U Morph 300 ng/mL cutoff Ur Oxycodone Screen Urine Methadone Screen Ur Barbiturates Screen U Tricyclic Antidepress Ur Phencyclidine Scrn Ur Amphetamines Screen U Methamphetamines Scrn Ur MDMA Scrn (Ecstasy) U Benzodiazepines Scrn Urine Cocaine Screen U Marijuana (THC) Screen Ketones Chlamy pneumoniae PCR Not detected Adenovirus (PCR) Not detected B.parapertussis DNA PCR Not detected Coronavirus OC43 (PCR) Not detected Coronavirus HKU1 (PCR) Not detected Coronavirus 229E (PCR) Not detected Coronavirus NL63 (PCR) Not detected Human Metapneumovir PCR Not detected Influenza Type A (PCR) Not detected Influenza Type B (PCR) Not detected M. pneumoniae (PCR) Not detected Parainfluenza 1 (PCR) Not detected Parainfluenza 2 (PCR) Not detected Parainfluenza 3 (PCR) Not detected Parainfluenza 4 (PCR) Not detected RSV (PCR) Not detected Entero/Rhino (PCR) Not detected 02/24/19 02/24/19 02/24/19 00:40 04:50 05:36 WBC RBC Hgb Hct MCV MCH MCHC RDW Plt Count Neut % (Auto) Lymph % (Auto) [place] % (Auto) Eos % (Auto) Baso % (Auto) Neut # (Auto) Lymph # (Auto) [place] # (Auto) Eos # (Auto) Baso # (Auto) ABG pH 7.23 L* ABG pCO2 32.4 L ABG pO2 121 H ABG HCO3 14 L ABG Total CO2 15 L ABG O2 Saturation 98 ABG Base Excess -14.0 L VBG pH VBG pCO2 VBG pO2 VBG HCO3 VBG Total CO2 VBG O2 Saturation VBG Base Excess FiO2 21 Sodium 145 142 Potassium 4.3 3.9 Chloride 119 H 118 H Carbon Dioxide 14 L 16 L BUN 23 H 20 H Creatinine 0.90 0.60 Estimated GFR > 60.0 > 60.0 BUN/Creatinine Ratio 25.6 H 33.3 H Glucose 185 H 156 H Lactate Calcium 9.2 8.9 Phosphorus 2.6 2.9 Magnesium 2.0 1.9 Total Bilirubin AST ALT Alkaline Phosphatase Total Creatine Kinase CK-MB (CK-2) CK-MB (CK-2) Rel Index Troponin I Total Protein Albumin Globulin Albumin/Globulin Ratio Procalcitonin Serum , Qual Urine RBC Urine WBC Ur Squamous Epith Cells Urine Bacteria Ur Culture Indicated? Nasal Screen MRSA (PCR) U Morph 300 ng/mL cutoff Ur Oxycodone Screen Urine Methadone Screen Ur Barbiturates Screen U Tricyclic Antidepress Ur Phencyclidine Scrn Ur Amphetamines Screen U Methamphetamines Scrn Ur MDMA Scrn (Ecstasy) U Benzodiazepines Scrn Urine Cocaine Screen U Marijuana (THC) Screen Ketones Chlamy pneumoniae PCR Adenovirus (PCR) B.parapertussis DNA PCR Coronavirus OC43 (PCR) Coronavirus HKU1 (PCR) Coronavirus 229E (PCR) Coronavirus NL63 (PCR) Human Metapneumovir PCR Influenza Type A (PCR) Influenza Type B (PCR) M. pneumoniae (PCR) Parainfluenza 1 (PCR) Parainfluenza 2 (PCR) Parainfluenza 3 (PCR) Parainfluenza 4 (PCR) RSV (PCR) Entero/Rhino (PCR) 02/24/19 06:40 WBC RBC Hgb Hct MCV MCH MCHC RDW Plt Count Neut % (Auto) Lymph % (Auto) [place] % (Auto) Eos % (Auto) Baso % (Auto) Neut # (Auto) Lymph # (Auto) [place] # (Auto) Eos # (Auto) Baso # (Auto) ABG pH ABG pCO2 ABG pO2 ABG HCO3 ABG Total CO2 ABG O2 Saturation ABG Base Excess VBG pH VBG pCO2 VBG pO2 VBG HCO3 VBG Total CO2 VBG O2 Saturation VBG Base Excess FiO2 Sodium Potassium Chloride Carbon Dioxide BUN Creatinine Estimated GFR BUN/Creatinine Ratio Glucose Lactate Calcium Phosphorus Magnesium Total Bilirubin AST ALT Alkaline Phosphatase Total Creatine Kinase CK-MB (CK-2) CK-MB (CK-2) Rel Index Troponin I Total Protein Albumin Globulin Albumin/Globulin Ratio Procalcitonin Serum , Qual Urine RBC Urine WBC Ur Squamous Epith Cells Urine Bacteria Ur Culture Indicated? Nasal Screen MRSA (PCR) U Morph 300 ng/mL cutoff Negative Ur Oxycodone Screen Negative Urine Methadone Screen Negative Ur Barbiturates Screen Negative U Tricyclic Antidepress Negative Ur Phencyclidine Scrn Negative Ur Amphetamines Screen Negative U Methamphetamines Scrn Negative Ur MDMA Scrn (Ecstasy) Negative U Benzodiazepines Scrn Negative Urine Cocaine Screen Negative U Marijuana (THC) Screen Negative Ketones Chlamy pneumoniae PCR Adenovirus (PCR) B.parapertussis DNA PCR Coronavirus OC43 (PCR) Coronavirus HKU1 (PCR) Coronavirus 229E (PCR) Coronavirus NL63 (PCR) Human Metapneumovir PCR Influenza Type A (PCR) Influenza Type B (PCR) M. pneumoniae (PCR) Parainfluenza 1 (PCR) Parainfluenza 2 (PCR) Parainfluenza 3 (PCR) Parainfluenza 4 (PCR) RSV (PCR) Entero/Rhino (PCR) Assessment & Plan Assessment & Plan narrative: Sarabjit Jimenes is a 29 year old female with past medical history of type 1 diabetes who is admitted to the ICU for DKA. Her anion gap has closed by her bicarb remains decreased, continue her insulin infusion until acidosis has improved. 1. DKA (moderaet) w/o coma associated w/ DM Type I, acute, present on admission, active, improving. - On admission BG 616. sKetones 15.63. Anion Gap 33. Venous ABG. pH 7.05 pCO2 16 pO2 47 HCO3 5 - Currently, anion gap has closed, still with low bicarb so will continue insulin infusion. Currently patient with NAGMA however this can be seen in post-treatment of ketoacidosis. - Continue IVF per protocol while on insulin infusion. - Continue insulin gtt per protocol until bicarb is improving. Consider further evaluation of NAGMA if no improvement is seen. - BMP, Phos, Mg now and Q4H re: monitor and correct electrolyte deficiencies - Keep NPO, sips of water are ok - Supportive care w/ anti-emetics and IV pain med - Blood cx, collected in ED, pending. RVP is negative. Will obtain chest x-ray today. 2. YURI, acute, present on admission, Resolved - 2/2 DKA and associated hypovolemia - sCr 1.0 (baseline 0.6-0.7) - Treat DKA, IVF, optimize renal perfusion - Trend renal function w/ lab 3. DM Type I (uncontrolled) chronic condition, present on admission, active, uncontrolled - A1C > 14 on 02/17/2019 - Multiple recurrent DKA w/ hospital admission and treatment - COMPLIANCE ADMINISTRATOR regimen consists of Tresiba and Humalon per SSI. Prior documented h/o non-adherence w/ insulin regimen. Holding for now, treatign DKA w/ insulin gtt until bicarb has improved. - Follows w/ endocrinology, has an appointment scheduled on Sat (02/27/19). I have placed a call to discuss possible changes to her diabetic regimen given two episodes of DKA within the past week. 4. Epigastric discomfort / abdominal pain, present on admission, active - Suspected to be in the setting of metabolic acidosis, severe hypovolemia - Troponin negative. - EKG non-ischemic - Dilaudid 0.5 mg IV Q6h prn 5. Abnormal urinalysis), acute vs subacute, present on admission, active - cystitis vs abnormal urine. - urine cx pending - patient is asymptomatic for UTI symptoms, hold off on further ABX therapy (pending urine cx resutls) I spent 40 minutes providing critical care management this patient. This excludes time spent in performing separately billed procedures. Full Code. Mother is the surrogate decision maker. VTE prophylaxis w/ SCDs and heparin sq Home medications reviewed and reconciled accordingly. Quality VTE Deep Vein Thrombosis/Pulmonary Embolism Present on Admission: No
[2019-02-24 10:39] LABS: Blood Urea Nitrogen 18 mg/dL (7-17); Calcium 8.7 mg/dL (8.4-10.2); Carbon Dioxide 14 mmol/L (22-32); Chloride 120 mmol/L (98-107); Estimated Glomerular Filt Rate > 60.0 mL/min (>60); Glucose 116 mg/dL (70-100); HEMOLYSIS 35 (0-50); Magnesium 1.8 mg/dL (1.6-2.3); Phosphorous 2.8 mg/dL (2.5-4.5); Potassium 4.5 mmol/L (3.4-5.1); Sodium 143 mmol/L (137-145)
[2019-02-24] MEDS: POTASSIUM CHLORIDE 20 MEQ in SODIUM CHLORIDE 0.9% 250 ML 130 ML IV ×2 (11:20→14:43)
--- NOTE | 2019-02-24 11:22 | CM.DANOTE ---
DCP: Case received, EMR reviewed and met with patient. Patient was sleepy, but was able to obtain some baseline history information. Introduced self and role. Had already placed name of this shutdown planner on her white board when she was sleeping earlier. DCP assessment/template completed with information currently available. Patient is a 29 year old female who admitted yesterday afternoon to the care of the hospitalist team. PCP: Patient has naphthalene still operator, Dr. De Oliveira, and had PCP at [facility]. Payer: confirmed: [facility]Medicaid. Patient came to the hospital via family vehicle secondary to nausea, abdominal pain, as well as weakness. Patient is type 1 diabetic. She currently holds diagnosis of DKA. She was recently here last month with same symptoms and diagnosis. Patient could also have UTI. Met with patient in her room briefly. She was groggy, but was able to obtain some information. She resides here in [place], is unemployed, and lives with her partner (boyfriend), Reggie. She does not drive, so he takes her out to various appointments, shopping, etc. She also has a father, Peter Jimenes, who lives here in [place], as well as her mother, Lorna. She also resides in [place]. Desk Editor/plant mechanic came down to see patient. This manager of case management asked her if she had any difficulty with her medications, which she denied. Went ahead and contacted her insurance, [facility], and spoke to Nesha, the coordinator. This manager of case management was attempting to see if she had a manager of case management following her. Nesha stated that several times after admission, they had attempted to contact her, and she had not called them back. Verified that they do have her correct number. They will also attempt to contact her again after discharge, for they have her clinical information. Nesha at [facility] mentioned that they can also go out to her home and do a face to face, which they had attempted last time. Dr. Weinberg, hospitalist, will be consulting with her naphthalene still operator, Dr. De Oliveira, to go over medications, and to see if any changes need to occur, and frequent hospitalization. She will be here until she is medically stable to go home, and her sugars are stable as well. P: DCP will continue to be available and to reach out for any resources needed. [facility] will also call patient upon discharge for any needs. Patient will go home when she is medically stable. Anni Rudd RN/Physical Medicine Physician
[2019-02-24 14:20] LABS: Blood Urea Nitrogen 15 mg/dL (7-17); Calcium 8.5 mg/dL (8.4-10.2); Carbon Dioxide 16 mmol/L (22-32); Chloride 118 mmol/L (98-107); Estimated Glomerular Filt Rate > 60.0 mL/min (>60); Glucose 120 mg/dL (70-100); HEMOLYSIS < 15 (0-50); Magnesium 1.7 mg/dL (1.6-2.3); Phosphorous 2.3 mg/dL (2.5-4.5); Potassium 4.1 mmol/L (3.4-5.1); Sodium 141 mmol/L (137-145)
--- NOTE | 2019-02-24 14:50 | PC.NURSE ---
PT LETHARGIC BUT AROUSABLE AND NO C/O PAIN- FACE FLUSHED AND SKIN WARM TO TOUCH- INSULIN GTT CONTINUES PER DKA PROTOCOL, CONTINUES WITH KCL RIDERS INTERMITTENTLY, SHE DENIES NAUSEA AND TAKING ONLY ICE WATER PER MD ORDERS-VOIDING APPROX Q SHIFT AND DECLINES NEED OR WISH TO GET UP TO VOID-THIS IS PER PATIENTS USUAL- AWAITING CULTURE RESULTS FROM [facility] SENT WHICH INITIALLY SHOWED GRAM - BACILLI
[2019-02-24 18:37] LABS: BUN Creatinine Ratio 18.3 (6-22); Blood Urea Nitrogen 11 mg/dL (7-17); Calcium 8.3 mg/dL (8.4-10.2); Carbon Dioxide 15 mmol/L (22-32); Chloride 112 mmol/L (98-107); Estimated Glomerular Filt Rate > 60.0 mL/min (>60); Glucose 190 mg/dL (70-100); HEMOLYSIS < 15 (0-50); Magnesium 1.6 mg/dL (1.6-2.3); Phosphorous 2.1 mg/dL (2.5-4.5); Potassium 3.9 mmol/L (3.4-5.1); Sodium 137 mmol/L (137-145)
[2019-02-24 18:43] LABS: pH ABG 7.29 (7.35-7.45)
[2019-02-24 18:44] LABS: PCO2 ABG 24.3 mmHg (35-45)
[2019-02-24 18:46] LABS: HCO3 ABG 12 mmol/L (22-26); PO2 ABG 107 mmHg (80-100); TCO2 ABG 12 mmol/L (21-31)
[2019-02-24 18:47] LABS: Fractionated Inspired Oxygen 0.21; Oxygen Saturation ABG 98 % (95-100)
--- NOTE | 2019-02-24 18:57 | PC.NURSE ---
0 - Labs and ABG gone over with physician. Stated to order k-rider per protocol. Continuing insulin gtt as ordered at this time.
[2019-02-25] VITALS (8 sets, daily range): BP systolic 97–120; BP diastolic 51–74; PULSE 91–132; RESP 14–20; TEMP 36.9–40; O2SAT 97–100
[2019-02-25] MEDS: HYDROMORPHONE 0.5 MG INJ IV ×5 (00:30→23:41)
[2019-02-25 01:58] LABS: BUN Creatinine Ratio 13.3 (6-22); Blood Urea Nitrogen 8 mg/dL (7-17); Carbon Dioxide 14 mmol/L (22-32); Chloride 112 mmol/L (98-107); Estimated Glomerular Filt Rate > 60.0 mL/min (>60); Glucose 155 mg/dL (70-100); HEMOLYSIS < 15 (0-50); Potassium 4.1 mmol/L (3.4-5.1); Sodium 139 mmol/L (137-145)
[2019-02-25] MEDS: POTASSIUM CHLORIDE 20 MEQ in SODIUM CHLORIDE 0.9% 250 ML 130 ML IV ×2 (02:28→05:44)
[2019-02-25 05:16] LABS: Blood Urea Nitrogen 6 mg/dL (7-17); Calcium 8.5 mg/dL (8.4-10.2); Carbon Dioxide 17 mmol/L (22-32); Chloride 111 mmol/L (98-107); Estimated Glomerular Filt Rate > 60.0 mL/min (>60); Glucose 164 mg/dL (70-100); HEMOLYSIS < 15 (0-50); Potassium 4.4 mmol/L (3.4-5.1); Sodium 137 mmol/L (137-145)
[2019-02-25 05:50] LABS: Magnesium 1.4 mg/dL (1.6-2.3)
--- NOTE | 2019-02-25 06:45 | PC.NURSE ---
Patient remains on insulin gtt, CBG labile 88-183, see flow sheet, IV fluids D5 1/2NS at 68ml/hr or D10W at 45ml/hr per protocol, 20 Meq K+ riders also infusing per protocol. Drinking sips water without nausea. C/o pain all over and tearful at times, IV Dilaudid given per prn order. SR/ST, HR up to 120 for brief period around 0200, says she was having bad dreams. SO in room.
[2019-02-25] MEDS: MAGNESIUM SULFATE 2 GM/50 ML PIGGYBACK IV (08:47)
--- NOTE | 2019-02-25 08:59 | P.PN_ITS ---
Subjective Subjective Date Patient Seen: 02/25/19 Time Patient Seen: 08:00 Interval history: Ms. Jimenes is a 29-year-old female with past medical history of type 1 diabetes was admitted with DKA. She has been on insulin drip, her gap is closed, but her bicarb has remained borderline. She feels much improved this morning with improved nausea, and she reported to me that she was hungry. She still has mild abdominal discomfort, but no abdominal pain, diarrhea, or constipation. She reports no dysuria or urinary frequency. We are currently repeating another BMP and blood gas at this time. If her bicarb remains the same or slightly increased, we will start her tresiga at her usual time of 11:00 a.m. and her insulin infusion will be turned off at noon. I spoke with her animal trainer yesterday, who recommended that her home regimen not be changed. Her appointment on February 27 is actually with her primary care provider, but the animal trainer is working on getting her in for another appointment. Exam Vital Signs (past 8 hours): - 02/25/19 01:30 02/25/19 04:45 02/25/19 07:54 Temperature 99.2 F 98.5 F Pulse Rate 120 H 91 H 111 H Respiratory Rate 14 14 14 Blood Pressure 108/58 L 97/51 L 109/65 Pulse Oximetry 97 99 99 Oxygen Delivery Method Room Air Oxygen Flow Rate 0 Narrative Exam Narrative: GENERAL APPEARANCE: Young female, appears fatigued but improved pallor. No acute distress. SKIN: Inspection of the skin reveals no rashes, ulcerations or petechiae. HEENT: The sclerae were anicteric and conjunctivae were pink and moist. Extraocular movements were intact and pupils were equal, round with normal accommodation. External inspection of the ears and nose showed no scars, lesions, or masses. Lips, teeth, and gums showed normal mucosa. The oral mucosa, hard and soft palate, tongue and posterior pharynx were unremarkable. NECK: Supple and symmetric. There was no thyroid enlargement, and no tenderness, or masses were felt. CHEST: Normal AP diameter and normal contour without any kyphoscoliosis. LUNGS: Auscultation of the lungs revealed no wheezes, rhonchi, or rales. CARDIOVASCULAR: There is mild tachycardia without any murmurs, gallops, rubs. Peripheral pulses were 2+ and symmetric. ABDOMEN: Soft, mild diffuse tenderness without rebound. No distension. MUSCULOSKELETAL: There was no tenderness or effusions noted. Muscle strength and tone were normal. EXTREMITIES: No cyanosis, clubbing or edema. NEUROLOGIC: Alert and oriented x 3. Normal affect. Strength is +5/5 in the Upper Extremities and Lower Extremities Bilaterally. Sensation to touch was normal. Objective Labs Result Diagrams: 02/23/19 17:08 02/25/19 04:45 Labs: Laboratory Results - last 24 hr 02/24/19 02/24/19 02/24/19 10:05 13:20 17:55 ABG pH ABG pCO2 ABG pO2 ABG HCO3 ABG Total CO2 ABG O2 Saturation ABG Base Excess FiO2 Sodium 143 141 137 Potassium 4.5 4.1 3.9 Chloride 120 H 118 H 112 H Carbon Dioxide 14 L 16 L 15 L BUN 18 H 15 11 Creatinine 0.60 0.60 0.60 Estimated GFR > 60.0 > 60.0 > 60.0 BUN/Creatinine Ratio 30.0 H 25.0 H 18.3 Glucose 116 H 120 H 190 H Calcium 8.7 8.5 8.3 L Phosphorus 2.8 2.3 L 2.1 L Magnesium 1.8 1.7 1.6 02/24/19 02/25/19 02/25/19 18:20 00:10 04:45 ABG pH 7.29 L ABG pCO2 24.3 L* ABG pO2 107 H ABG HCO3 12 L ABG Total CO2 12 L ABG O2 Saturation 98 ABG Base Excess -15.0 L FiO2 0.21 Sodium 139 137 Potassium 4.1 4.4 Chloride 112 H 111 H Carbon Dioxide 14 L 17 L BUN 8 6 L Creatinine 0.60 0.50 L Estimated GFR > 60.0 > 60.0 BUN/Creatinine Ratio 13.3 12.0 Glucose 155 H 164 H Calcium 9.0 8.5 Phosphorus Magnesium 02/25/19 04:45 ABG pH ABG pCO2 ABG pO2 ABG HCO3 ABG Total CO2 ABG O2 Saturation ABG Base Excess FiO2 Sodium Potassium Chloride Carbon Dioxide BUN Creatinine Estimated GFR BUN/Creatinine Ratio Glucose Calcium Phosphorus Magnesium 1.4 L Assessment & Plan Assessment & Plan narrative: Sarabjit Jimenes is a 29 year old female with past medical history of type 1 diabetes who is admitted to the ICU for DKA. Her anion gap has closed and her bicarb is improving, if stable we will resume her home regimen and turn off her insulin infusion at noon today. 1. DKA (moderate) w/o coma associated w/ DM Type I, acute, present on admission, active, improving. - On admission BG 616. sKetones 15.63. Anion Gap 33. Venous ABG. pH 7.05 pCO2 16 pO2 47 HCO3 5 - Currently, anion gap has closed. Her chloride is improving as is her bicarb on continued insulin drip. Currently patient with NAGMA however this can be seen in post-treatment of ketoacidosis. - Continue IVF per protocol while on insulin infusion. - Continue insulin gtt with plan to discontinue at noon after giving her home Tresiga at 11:00 a.m. Consider further evaluation of NAGMA if no improvement is seen in her bicarb. - BMP, Phos, Mg now and Q4H re: monitor and correct electrolyte deficiencies. Can restart diet at lunch. - Supportive care w/ anti-emetics and IV pain med - Blood cx, collected in ED, pending. RVP is negative. Chest x-ray showed no acute infiltrates. 2. YURI, acute, present on admission, Resolved - 2/2 DKA and associated hypovolemia, this resolved with IV fluids. - sCr 1.0 (baseline 0.6-0.7) - Trend renal function w/ lab 3. DM Type I (uncontrolled) chronic condition, present on admission, active, uncontrolled - A1C > 14 on 02/17/2019 - Multiple recurrent DKA w/ hospital admission and treatment - BEAD FILLER regimen consists of Tresiba and Humalon per SSI. Prior documented h/o non- adherence w/ insulin regimen. Holding for now, treatign DKA w/ insulin gtt until bicarb has improved. - Follows w/ endocrinology, has an appointment with her primary care provider scheduled on Sat (02/27/19). I spoke with her animal trainer, Dr. Dominguez, who did not recommend any changes to her outpatient regimen at this time, and will try and get her in for a sooner appointment. 4. Epigastric discomfort / abdominal pain, present on admission, active - Suspected to be in the setting of metabolic acidosis, severe hypovolemia - Troponin negative. - EKG non-ischemic - Dilaudid 0.5 mg IV Q6h prn, consider further evaluate if still persistent after electrolyte and acid-base disturbances have corrected. 5. Abnormal urinalysis), acute vs subacute, present on admission, active - cystitis vs abnormal urine. - urine cx pending - patient is asymptomatic for UTI symptoms, hold off on further ABX therapy (pending urine cx resutls) I spent 30 minutes providing critical care management this patient. This excludes time spent in performing separately billed procedures. Full Code. Mother is the surrogate decision maker. VTE prophylaxis w/ SCDs and heparin sq Home medications reviewed and reconciled accordingly. Quality VTE Deep Vein Thrombosis/Pulmonary Embolism Present on Admission: No
[2019-02-25 09:26] LABS: Blood Urea Nitrogen 5 mg/dL (7-17); Calcium 8.6 mg/dL (8.4-10.2); Carbon Dioxide 16 mmol/L (22-32); Chloride 112 mmol/L (98-107); Estimated Glomerular Filt Rate > 60.0 mL/min (>60); Glucose 140 mg/dL (70-100); HEMOLYSIS < 15 (0-50); Potassium 4.3 mmol/L (3.4-5.1); Sodium 136 mmol/L (137-145)
[2019-02-25] MEDS: TRESIBA 40 UNIT 40 EACH SUBCUT (11:33)
[2019-02-25 13:31] LABS: pH VBG 7.29 (7.33-7.43)
[2019-02-25 13:33] LABS: HCO3 VBG 15 mmol/L (23-28); PO2 VBG 36 mmHg (35-45); Total CO2 VBG 16 mmol/L (24-29)
[2019-02-25 13:34] LABS: Oxygen Saturation VBG 63 % (70-75)
[2019-02-25] MEDS: INSULIN ASPART 100 UNIT/ML INSULN PEN SUBCUT ×4 (13:40→21:21)
--- NOTE | 2019-02-25 18:45 | DI.US.S_ITS ---
PROCEDURE: US ABDOMEN LIMITED INDICATIONS: EPIGASTRIC PAIN TECHNIQUE: Real-time scanning was performed of the abdominal and retroperitoneal organs, with image documentation. COMPARISON: None. FINDINGS: Liver: Liver is mildly enlarged and measures 18 cm in length. Liver parenchyma is normal in echotexture. Gallbladder: There is no gallstone. No gallbladder wall thickening or pericholecystic fluid. No sonographic Gómez's sign. Biliary ducts: Intrahepatic bile ducts are non-dilated. Extrahepatic bile duct caliber measures 3.3 mm. Normal is 6-7 mm or less in diameter, or 10 mm or less post-cholecystectomy. Pancreas: Visualized portions of the pancreas are sonographically normal. Miscellaneous: No free abdominal fluid. IMPRESSION: 1. Borderline hepatomegaly. No discrete hepatic lesion. 2. Normal appearing gallbladder. No biliary ductal dilatation. Dictated by: Julio Kay M.D. on 02/26/2019 at 9:32 Approved by: Julio Kay M.D. on 02/26/2019 at 9:34
[2019-02-25] MEDS: ACETAMINOPHEN 325 MG TABLET 975 MG PO (22:35)
--- NOTE | 2019-02-25 22:47 | DI.CT.S_ITS ---
PROCEDURE: CT ABDOMEN PELVIS WO CON INDICATIONS: abdominal pain, Temp 104 TECHNIQUE: IV contrast was given because of history of severe contrast allergy. Noncontrast 5 mm thick sections acquired from the diaphragms to the symphysis. 5 mm coronal and sagittal reformats were then performed. For radiation dose reduction, the following was used: automated exposure control, adjustment of mA and/or kV according to patient size. COMPARISON: [facility], CT, ABDOMEN/PELVIS WITH CONTRAST, 12/08/2013, 13:43. [facility], CT, KIDNEY/ URETER/BLADDER, 01/27/2014, 19:33. [facility], CT, KIDNEY/ URETER/BLADDER, 09/03/2014, 7:57. FINDINGS: Image quality: Excellent. ABDOMEN: Lung bases: Lung bases are clear. Heart size is normal. Solid organs: Liver is normal in size. Gallbladder is normal. Pancreas is normal in contours. Spleen is normal in size. No adrenal nodules. Kidneys are normal in size. There is trace left renal pelviectasis. No nephrolithiasis. Peritoneum and bowel: Unenhanced bowel loops demonstrate normal and caliber. Mild gaseous distention of small intestine with a few air fluid levels. Proximal small bowel loops appear mildly thickened. There is no transitional point. There is a moderate amount of stool in colon. Appendix is not definitively identified. No free air. A small amount of free fluid is present. Nodes and vessels: Mildly enlarged retroperitoneal lymph nodes are present. For example a left para-aortic lymph node measures 1.3 cm in short axis. Aorta and inferior vena cava are normal in caliber. Miscellaneous: No ventral hernias. PELVIS: Genitourinary: Bladder is moderately distended. There is mild bladder wall thickening. Uterus is is normal. Ovaries are not well-seen. There is a small amount of free fluid in the cul-de-sac. Miscellaneous: No inguinal hernias or adenopathy. Bones: No suspicious bony lesions. No vertebral body compression fractures. IMPRESSION: 1. Mild gaseous distention of small intestine with a few air fluid levels without findings to suggest small bowel obstruction. There is mild proximal small bowel wall thickening. A small amount of free fluid is present. The CT findings are not specific and may be secondary to gastroenteritis. 2. Distended urinary bladder with mild bladder wall thickening. Recommend clinical correlation for cystitis. 3. Trace left renal pelviectasis without varghese hydronephrosis. No obstructing stones identified. 4. Mild retroperitoneal lymphadenopathy. This finding is nonspecific and may be secondary to infectious, inflammatory or neoplastic etiology. Recommend clinical correlation and follow up. 5. Suboptimal examination due to the lack of IV and oral contrast. The patient has history of severe IV contrast allergy. Dictated by: Keven Dotson M.D. on 02/26/2019 at 8:02 Approved by: Keven Dotson M.D. on 02/26/2019 at 8:14
--- NOTE | 2019-02-25 22:48 | PC.NURSE ---
2229- Patient moaning and crying in bed. Patient states she hurts all over. Patient is very warm to touch. Temp 104.0 Medicated with tylenol po. Hospitalist notified and orders rec.
--- NOTE | 2019-02-25 23:07 | PM.EVENT ---
Event Note Date Patient Seen: 02/25/19 Time Patient Seen: 23:07 Event Note: Notified by RN of patient having temperature of 104F. States temp was checked via multiple modalities. Patient has developed a fever of 104 F. This was checked via multiple modalities. Blood Cx negative to date at 24 hours (drawn 02/23) Viral respiratory panel and CXR negative on admission Urine Cx positive on 02/23, growing E. Coli. No known MDR. Recently hospitalized for DKA. Followed by current hospitalization, date of admission 02/23 UTI (complicated). Given that patient was recently hospitalized will treat w/ broad-spectrum vs. standard-spectrum antimicrobial regimen. - start on meropenem 1 gm IV Q8H - Obtain STAT CT of A/P WITHOUT contrast to r/o obstruction, pyelonephritis, biliary anomaly, acute apendicitis, pancreatitis, urolithiasis (also has prior history) patient has been complaining of RUQ abominal pain since admission, she has had a RUQ U/S pending for 02/26, given new onset of a high grade fever, will expedite imaging CT of A/P reviewed Liver is mildly enlarged. Gallbladder is unremarkable No hydronephrosis. Mild prominence left renal pelvis likely incidental. The spleen and pancreas are unremarkable. Moderate stool in the colon. No definite diverticulitis. The appendix is not clearly visualized. There is increased gas in the small bowel without obstruction. This is nonspecific. There is some mild nonspecific wall thickening of the proximal small bowel. The bladder is moderately distended and mildly thick walled which is nonspecific. There is small amount of free fluid in the abdomen and pelvis. - Will make NPO for now, re-evaluate again in am - Ask to have patient void, out 1000 ml. Check post void residual, and significant. - Asked nurses to prompt patient to avoid every 4-6 hours, per patient's nurse this is being done however patient has previously declined. Discussed with patient in detail need for frequent voiding in effort to decrease bacterial growth and potential for UTIs, patient in agreement in reports understanding
--- NOTE | 2019-02-25 23:51 | PC.NURSE ---
Addendum entered by Jasmine Olivares R.N. 02/26/19 02:16: Pt up to [facility] and voided 1000mL. Post void residual highest result of 46 mL. Result reported to SHARYN Del Valle. Original Note: Pt in tears on initial assessment related to pain. C/O 11/29 RUQ/epigastric pain. Denies N/V. Medicated per orders. Transported to CT via for stat order. Awaiting results.
[2019-02-26] VITALS (10 sets, daily range): BP systolic 102–129; BP diastolic 58–81; PULSE 90–128; RESP 12–22; TEMP 36.7–40.6; O2SAT 96–100
[2019-02-26] MEDS: MEROPENEM 1 GM/50 ML PIGGYBACK IV ×3 (00:55→17:19)
[2019-02-26] MEDS: HYDROMORPHONE 0.5 MG INJ IV ×5 (03:53→21:19)
[2019-02-26 05:28] LABS: Add Manual Diff / Slide Review NO; Basophils Absolute Auto 0 /uL (0-100); Basophils Percent Auto 0.5 % (0-2); Eosinophils Absolute Auto 0 /uL (0-450); Eosinophils Percent Auto 0.3 % (2-4); Hematocrit 36.2 % (36-46); Hemoglobin 12.8 g/dL (12.0-16.0); Lymphocytes Absolute Auto 800 /uL (1100-4500); Lymphocytes Percent Auto 11.3 % (25-40); Mean Corpuscular HGB Conc 35.3 % (30-36); Mean Corpuscular Hemoglobin 32.7 PG (26-34); Mean Corpuscular Volume 92.8 fL (80-100); Monocytes Absolute Auto 600 /uL (0-900); Monocytes Percent Auto 7.8 % (3-14); Neutrophils Absolute Auto 5800 /uL (1500-7000); Neutrophils Percent Auto 80.1 % (50-75); Platelet Count 204 X10^3/uL (150-400); Red Cell Distribution Width 12.3 % (11.6-14.8); White Blood Cell Count 7.3 X10^3/uL (4.5-11.0)
[2019-02-26 05:34] LABS: BUN Creatinine Ratio 21.4 (6-22); Blood Urea Nitrogen 15 mg/dL (7-17); Calcium 8.6 mg/dL (8.4-10.2); Carbon Dioxide 23 mmol/L (22-32); Chloride 107 mmol/L (98-107); Estimated Glomerular Filt Rate > 60.0 mL/min (>60); Glucose 258 mg/dL (70-100); HEMOLYSIS < 15 (0-50); Magnesium 1.8 mg/dL (1.6-2.3); Potassium 3.5 mmol/L (3.4-5.1); Sodium 137 mmol/L (137-145)
[2019-02-26] MEDS: LACTATED RINGERS 1,000 ML 1000 ML IV (08:09)
[2019-02-26] MEDS: PANTOPRAZOLE 40 MG TABLET PO (08:15)
[2019-02-26] MEDS: INSULIN ASPART 100 UNIT/ML INSULN PEN SUBCUT (08:17)
--- NOTE | 2019-02-26 08:26 | PC.NURSE ---
Addendum entered by Arabella Owens R.N. 02/26/19 13:31: report given to RAYNA Lubin at 1330. Addendum entered by Arabella Owens R.N. 02/26/19 12:24: Spoke with Dr. Weinberg at 1223, request for prn IV pain meds, pt's upper abd pain increasing, now 5/10. Dr. Weinberg to place new orders. Addendum entered by Arabella Owens R.N. 02/26/19 10:12: Temperature rechecked at 0949 by RECREATION LEADER. 99.3F orally and 100.3F temporal. Ice pack to back of neck, pt refused SCD's off at this time. At 0950, blood cultures and ordered lab work drawn from [facility] per protocol. Addendum entered by Arabella Owens R.N. 02/26/19 09:15: Pt's mother Argelia called at 0914 requesting update. Okayed by Pt that is was okay to give personal information and plan of care update. Original Note: DAy Shift- Pt's upper abd pain, aching, throbbing, tender and intermittent sharp, 8/10. PRN IV Dilaudid given at 0800 with satisfactory relief, at 0820 pain decreased to 5/10. Pt states passing little amount of flatus. Bowel tones X4, pt denies bloating, abd distention, nausea. States had normal for her sized BM 11/6, pt describes as large formed. States at home has BM's every couple days. Spoke with Dr. Weinberg at 0825, made aware of pt's temperature at 0800 was 102.4F orally and 104.0F temporal. ice pack previously placed to back of neck. Okay to given po prn tylenol for fever at this time. Dr. Weinberg to order blood cultures. IVF LR 1 litre bolus started per orders to JARRETT midline. FLushes well with brisk blood return. Call light within reach. Pt refused Scheduled Heparin, risks/benefits explained, pt okay with calf SCD's on, stating she would rather have the SCD's on than get the shot.
[2019-02-26] MEDS: ACETAMINOPHEN 325 MG TABLET 975 MG PO (08:34)
[2019-02-26] MEDS: LACTATED RINGERS 1,000 ML 125 ML IV ×2 (09:10→21:22)
[2019-02-26] MEDS: SODIUM CHLORIDE 0.9% FLUSH 10 ML IV ×2 (09:50→11:40)
[2019-02-26] MEDS: SODIUM CHLORIDE 0.9% 250 ML 21 ML IV (10:00)
[2019-02-26 10:20] LABS: Alanine Aminotransferase 212 IU/L (<35); Albumin 3.1 g/dL (3.5-5.0); Albumin Globulin Ratio 1.1 (1.0-2.8); Alkaline Phosphatase 117 U/L (38-126); Aspartate Aminotransferase 729 IU/L (14-36); Bilirubin Total 0.9 mg/dL (0.2-1.3); Bilirubin Unconjugated 0.5 mg/dL (0.0-1.1); Globulin 2.7 g/dL (1.7-4.1); HEMOLYSIS 112 (0-50); Total Protein 5.8 g/dL (6.3-8.2)
--- NOTE | 2019-02-26 11:34 | DIET.PN ---
Dietary Note Assessment: Ms. Jimenes is a 29 yof referred for Diabetes w/ recurrent DKA. Pt reports DKA every 6-12 mo. She was previously under the care of Dr. Leonidas Oreilly, director of career services with [facility]. She has experienced significant weight loss over the last few months. She states she has had prior formal diabetes education in the past, but admits she does not follow any regimented dietary plan. She is picky and only eats small portions at a time. Reports she knows she does not eat enough protein as she does not like red meat, seafood, and can only eat small amounts of cheese and other dairy. She admits she is not physically active and is fatigued most of the day and is very sedentary. She is currently taking 30u of Tresiba mid-day w/ meal time humalog. She reports she adjust her mealtime insulin based on how she feels. Dietary intake includes pizza, chicken nuggets, cereal, grilled cheese, etc. Dr. Vargas discussed medication management with patient in further detail. She is scheduled to meet with an director of career services mid December to follow up with further diabetes care. DX: T1DM w/ DKA Diet: CC HT: 154.94cm WT: 50.3kg BMI: 21 Labs: HgbA1c: >14 Nutrition Diagnosis: Altered nutrition related lab values r/t impaired glucose metabolism, lack of previous exposure to accurate information aeb pt report, DX diabetes, previous diet high in refined CHO. Interventions: 1. Discussed pts current dietary patterns. Reviewed CHO counting in detail. Recommended 30g CHO per meal. List of CHO foods and servings provided. 2. Discussed importance of not skipping meals. Recommended pt aim for 3 meals/ day with snacks in between. 3. Discussed the importance of protein with meals for glucose control. Provided pt a list protein sources and discussed options for breakfast. 4. Discussed medications and management. Encouraged pt to monitor FBG as well as pre-post prandial BG. Pt could benefit from CGM and/or insulin pump. 5. Discussed importance of physical activity in helping with insulin sensitivity and increasing energy. Reviewed exercise safety including glucose ranges and when to avoid exercise. Monitoring/Evaluations: Recommended pt request referral for additional outpatient MNT or DSME/T.
--- NOTE | 2019-02-26 11:36 | DIET.PN ---
Dietary Note Assessment: Ms. Jimenes is a 29 yof referred for Diabetes w/ recurrent DKA. Pt reports DKA every 6-12 mo, however this is her 9th hospitalization this year for DKA. I met with this patient and her mother a few months ago. We discussed her previous care under Dr. Leonidas Oreilly, production control manager with [facility]. She is now under the care of Dr. Dominguez, production control manager, for her diabetes management. In our previous visit she reported on her dietary intake admitting she does not follow any diabetes nutrition therapy or any restrictions/modifications for that matter. This includes little protein as she does not like red meat, seafood, and can only eat small amounts of cheese and other dairy. Previous dietary intake included pizza, chicken nuggets, cereal, grilled cheese, etc. She was unable to provide much as far as her medication management or dietary intake at this visit. She continues to have significant weight loss at each visit. Her Tresiba has been increased to 40 u mid-day w/ meal time SSI humalog. She was unable to provide information on SSI protocol other than she takes a certain amount for high carb meals and another amount for low carb meals. She continues to seek pump therapy, however reports Dr. Dominguez does not believe this will benefit this patient. I spoke with Elvira requesting documentation of patients last provider visits to review patients medication protocol in order to further discuss dietary needs. DX: T1DM w/ DKA Diet: CC HT: 154.94cm WT: 48.4 (down from50.3kg) BMI: 20.2 Labs: HgbA1c: >14 Ketones: 15.63 Anion Gap: 33 Gluc: 616 at admit AST: 729 ALT: 212 Nutrition Diagnosis: 1. Poor nutrition quality of life r/t barriers in accessing critical medical supplies to manage diabetes aeb pt a1c> 14, 9 hospital admits in the past year for DKA, financial restrictions for accessing CGM and insulin pump. 2. Altered nutrition related lab values r/t impaired glucose metabolism, lack of previous exposure to accurate information aeb pt report, DX diabetes, previous diet high in refined CHO. Interventions: 1. Attempted reviewing pts current dietary patterns. Unable to obtain. 2. Attempted to discuss pts current medication regimen. She states she does not know it, it is on a piece of paper at her house. 3. Requested documentation of patients current diabetes insulin therapy. 4. Recommend outpatient visit w/ patient to discuss diabetes nutrition therapy, importance of medication management, and barrier to care. Monitoring/Evaluations: Recommended pt request referral for additional outpatient MNT or DSME/T. Pt to follow up with PCP this Saturday, Feb 27. Purchasing/Receiving attempting to see her soon.
[2019-02-26 12:00] LABS: Hepatitis B Surface Antigen NEGATIVE s/c (NEGATIVE)
[2019-02-26 12:19] LABS: Hep C Virus Ab w/Reflex Quant NEGATIVE s/c (NEGATIVE)
[2019-02-26 13:28] LABS: Alanine Aminotransferase 221 IU/L (<35); Albumin 2.9 g/dL (3.5-5.0); Albumin Globulin Ratio 1.2 (1.0-2.8); Alkaline Phosphatase 143 U/L (38-126); Aspartate Aminotransferase 677 IU/L (14-36); Bilirubin Total 0.7 mg/dL (0.2-1.3); Bilirubin Unconjugated 0.5 mg/dL (0.0-1.1); Globulin 2.5 g/dL (1.7-4.1); HEMOLYSIS < 15 (0-50); Total Protein 5.4 g/dL (6.3-8.2)
--- NOTE | 2019-02-26 14:16 | PC.NURSE ---
Assumed care of Pt Reports ABD pain 2/10, improved with use of narcotics. NPO, minimal ice chip use. Discussed lab values. Pt aware of pending results. No current needs, CBG 124 at 1400.
--- NOTE | 2019-02-26 14:19 | DI.MRI.S_ITS ---
PROCEDURE: MR ABDOMEN WO CON INDICATIONS: Fever, abdominal pain, elevated LFT, normal US CT. MRCP. TECHNIQUE: Coronal HASTE through the abdomen, axial 2-D FLASH in- and [id number], and breath-hold T2 FSE with fat saturation through the biliary system and pancreas. Oblique coronal and axial thin-slice HASTE, radial thick-slab HASTE centered on the extrahepatic bile ducts. Intravenous secretin: Not requested. COMPARISON: [facility], CT, KIDNEY/ URETER/BLADDER, 09/03/2014, 7:57. [facility], US, US ABDOMEN LIMITED, 02/26/2019, 20:17. [facility], CT, CT ABDOMEN PELVIS WO CON, 02/25/2019, 23:35. FINDINGS: Image quality: Excellent. Pancreas and biliary system: Intra- and extra-hepatic biliary ducts are non dilated. Pancreas is normal in morphology, without adjacent soft tissue edema. Pancreatic duct is nondilated and not well seen. Gallbladder is distended. Other solid organs: Liver is mildly enlarged with diffuse hepatic fatty infiltration. Spleen is normal in size. No adrenal nodules. Both kidneys are normal in size, without hydronephrosis. Nodes and vessels: Mildly enlarged left para-aortic lymph nodes are identified. Aorta and inferior vena cava are normal in size. Bowel and peritoneum: Unenhanced bowel loops are normal in caliber. There is a small amount of free fluid. Lung bases: No basal pleural effusions. Heart size is normal. Bones and soft tissues: No ventral hernias. Bone marrow is of normal overall signal. IMPRESSION: 1. Mild hepatomegaly and diffuse hepatic fatty infiltration. 2. Mildly enlarged retroperitoneal lymph nodes. This finding is nonspecific and may be secondary to infectious, inflammatory or neoplastic etiology. Recommend clinical correlation and follow up. 3. A small amount of free fluid, which is nonspecific. 4. Distended gallbladder, which could be caused by fasting. No gallstones or biliary duct dilation. Dictated by: Keven Dotson M.D. on 02/26/2019 at 16:16 Approved by: Keven Dotson M.D. on 02/26/2019 at 16:24
--- NOTE | 2019-02-26 14:36 | P.PN_ITS ---
Subjective Subjective Date Patient Seen: 02/26/19 Time Patient Seen: 14:36 Interval history: Ms. Jimenes is a 29-year-old female with past medical history of type 1 diabetes was admitted with DKA. Her insulin drip was discontinued yesterday and patient was started on her home regimen diabetes. Her bicarb remained somewhat low and she was kept overnight to monitor her electrolytes and acid-base status. However beginning last evening she started complaining of ep igastric abdominal pain, that is described as sharp and occasionally stabbing. The pain had no correlation with food. Over night she developed a very high fever. She did have a CT abdomen noncontrast last evening, which showed mildly dilated loops of bowel and some gastric wall thickening. However all this was fairly nonspecific and did not point towards any infectious etiology. A right upper quadrant ultrasound was further unremarkable. Her additional labs from this morning revealed a marked change in her LFTs with an AST in the 700s and a more mildly elevated ALT and alk-phos level. These were repeated given the significant change from admission value, and they were fairly similar. There is no elevation in her bilirubin. However given fevers, abdominal pain, and LFTs I discussed the case with surgery here, and while she does not have evidence on CT or ultrasound of biliary obstruction an MRCP is reasonable in this situation. The patient further had E coli grow from her urine, despite absence of symptoms she was started on meropenem for this which we will continue with this time. Further workup at this point includes hepatitis serologies which are pending. Exam Vital Signs (past 8 hours): - 02/26/19 08:00 02/26/19 08:03 02/26/19 09:49 Temperature 105.0 F H 102.4 F H 99.3 F Pulse Rate 128 H Respiratory Rate 18 Blood Pressure 114/58 L Pulse Oximetry 96 02/26/19 09:50 02/26/19 11:45 Temperature 100.3 F H 98.1 F Pulse Rate 90 Respiratory Rate 12 Blood Pressure 102/58 L Pulse Oximetry 96 Oxygen Delivery Method Room Air Oxygen Flow Rate 0 Narrative Exam Narrative: GENERAL APPEARANCE: Young female, appears fatigued but improved pallor. No acute distress. SKIN: Inspection of the skin reveals no rashes, ulcerations or petechiae. HEENT: The sclerae were anicteric and conjunctivae were pink and moist. Extraocular movements were intact and pupils were equal, round with normal accommodation. External inspection of the ears and nose showed no scars, lesions, or masses. Lips, teeth, and gums showed normal mucosa. The oral mucosa, hard and soft palate, tongue and posterior pharynx were unremarkable. NECK: Supple and symmetric. There was no thyroid enlargement, and no tenderness, or masses were felt. CHEST: Normal AP diameter and normal contour without any kyphoscoliosis. There is epigastric tenderness upon palpation of her chest. LUNGS: Auscultation of the lungs revealed no wheezes, rhonchi, or rales. CARDIOVASCULAR: There is mild tachycardia without any murmurs, gallops, rubs. Peripheral pulses were 2+ and symmetric. ABDOMEN: Soft, diffuse tenderness more prominent in the epigastrium. No distension. MUSCULOSKELETAL: There was no tenderness or effusions noted. Muscle strength and tone were normal. EXTREMITIES: No cyanosis, clubbing or edema. NEUROLOGIC: Alert and oriented x 3. Normal affect. Strength is +5/5 in the Upper Extremities and Lower Extremities Bilaterally. Sensation to touch was normal. Objective Labs Result Diagrams: 02/26/19 05:08 02/26/19 05:08 Labs: Laboratory Results - last 24 hr 02/26/19 02/26/19 02/26/19 05:08 05:08 09:50 WBC 7.3 RBC 3.90 L Hgb 12.8 Hct 36.2 MCV 92.8 D MCH 32.7 MCHC 35.3 RDW 12.3 Plt Count 204 Neut % (Auto) 80.1 H Lymph % (Auto) 11.3 L Greene % (Auto) 7.8 Eos % (Auto) 0.3 L Baso % (Auto) 0.5 Neut # (Auto) 5800 Lymph # (Auto) 800 L [place] # (Auto) 600 Eos # (Auto) 0 Baso # (Auto) 0 Sodium 137 Potassium 3.5 Chloride 107 Carbon Dioxide 23 BUN 15 Creatinine 0.70 Estimated GFR > 60.0 BUN/Creatinine Ratio 21.4 Glucose 258 H D Calcium 8.6 Magnesium 1.8 Total Bilirubin 0.9 Conjugated Bilirubin 0.0 Unconjugated Bilirubin 0.5 AST 729 H ALT 212 H Alkaline Phosphatase 117 D Total Protein 5.8 L Albumin 3.1 L Globulin 2.7 Albumin/Globulin Ratio 1.1 Hep Bs Antigen Hepatitis C Antibody 02/26/19 02/26/19 09:55 13:10 WBC RBC Hgb Hct MCV MCH MCHC RDW Plt Count Neut % (Auto) Lymph % (Auto) [place] % (Auto) Eos % (Auto) Baso % (Auto) Neut # (Auto) Lymph # (Auto) Greene # (Auto) Eos # (Auto) Baso # (Auto) Sodium Potassium Chloride Carbon Dioxide BUN Creatinine Estimated GFR BUN/Creatinine Ratio Glucose Calcium Magnesium Total Bilirubin 0.7 Conjugated Bilirubin 0.0 Unconjugated Bilirubin 0.5 AST 677 H ALT 221 H Alkaline Phosphatase 143 H Total Protein 5.4 L Albumin 2.9 L Globulin 2.5 Albumin/Globulin Ratio 1.2 Hep Bs Antigen Negative Hepatitis C Antibody Negative Assessment & Plan Assessment & Plan narrative: Sarabjit Jimenes is a 29 year old female with past medical history of type 1 diabetes who is admitted to the ICU for DKA. Her anion gap has closed and her bicarb did improve. She was taken off of the insulin drip yesterday, however overnight developed worsening epigastric pain and fever. He is being treated with meropenem at this time for broad coverage. Her urine was positive for E coli, however she was asymptomatic upon presentation. This is the only positive source so far. 1. Epigastric pain, acute -differential includes biliary pathologies, infectious hepatic etiologies given fever, gastroparesis, ileus, amongst others. Most concerning given her LFT elevations would be for cholecystitis or even possibly cholangitis. However CT imaging did not show evidence of obstruction and abdominal ultrasound further did not show any evidence of obstruction or infection. Discussed with General surgery today and they recommended MRCP for further evaluation. MRCP was also negative today. - continue reglan - continue to trend LFTs - NPO / IVF until improving symptomatic - consider NG tube if distension and / or nausea /vomiting - consider gastric emptying study 2. Elevated transaminases -torey it elevation compared to admission. Does not appear to be related to an obstructive picture at this time given the above imaging. Suspect DILI and other than Tylenol patient has not been on any well-k nown hepatotoxic medications. There are case reports ischemic injury secondary to DKA or sepsis. However the patient was not profoundly hypotensive. -continue to follow LFTs -avoid hepatotoxic medications -continue meropenem -hepatitis serologies pending. -US/CT/MRI shows mild enlargement consistent with fatty infiltration. 3. Acute cystitis -patient did have WBCs in urine on admission, however no dysuria or urinary frequency was reported. Her culture did grow E coli, and she did spike a fever to 105. Her SOFA score is 1 (hypotension) at this time and she does not meet sepsis criteria. -continue meropenem, if no other infectious etiologies are found would treat for 7 days. Can narrow based on sensitivities, however suspect another possible infectious source which has not been evident so far. 4. DKA (moderate) w/o coma associated w/ DM Type I, acute, present on admission, resolved. - On admission BG 616. sKetones 15.63. Anion Gap 33. Venous ABG. pH 7.05 pCO2 16 pO2 47 HCO3 5 - Currently, anion gap has closed. She had a prolonged NAGMA however this resolved this morning. - Chest x-ray showed no acute infiltrates. 5. YURI, acute, present on admission, Resolved - 2/2 DKA and associated hypovolemia, this resolved with IV fluids. - sCr 1.0 (baseline 0.6-0.7) - Trend renal function w/ lab 6. 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 Prior documented h/o non- adherence w/ insulin regimen. Resume tresiga at half dosing today, continue sliding scale insulin. Okay to resume home regimen when tolerating a diet. - Follows w/ endocrinology, has an appointment with her primary care provider scheduled on Sat (02/27/19). I spoke with her cloud systems administrator, Dr. Dominguez, who did not recommend any changes to her outpatient regimen at this time, and will try and get her in for a sooner appointment. Code: Full DVT: HSQ Dispo: remains inpatient. Quality VTE Deep Vein Thrombosis/Pulmonary Embolism Present on Admission: No
--- NOTE | 2019-02-26 15:07 | CM.DPC ---
DCP: continued: case received, EMR reviewed and discussed POC in Team Rounds. READMIT: noted: pt was here 02/16 with a d/c to home setting 02/17. Dr. Weinberg noted pt with high fever last night 104+, urine growing ecoli and pt now on Merapenem to treat same. Dr. Weinberg is consulting with General Surgeons team as MCRP may be indicated. Dr. Weinberg notes he anticipates pt will need several more days in hospital as her medical issues are treated. DCP team will be following to assist with any d/c needs that may arise.
--- NOTE | 2019-02-26 20:45 | PC.NURSE ---
2000- Patient fever 102.2 no antipyretic ordered at this time. Amanda ARAGON notified await orders.
[2019-02-27] VITALS (7 sets, daily range): BP systolic 104–129; BP diastolic 62–88; PULSE 90–108; RESP 16–19; TEMP 36.2–39.1; O2SAT 98–99
[2019-02-27] MEDS: IBUPROFEN 600 MG TABLET PO (00:10)
[2019-02-27] MEDS: MEROPENEM 1 GM/50 ML PIGGYBACK IV ×3 (00:11→16:53)
[2019-02-27] MEDS: HYDROMORPHONE 0.5 MG INJ IV ×6 (01:29→23:39)
[2019-02-27 05:25] LABS: Add Manual Diff / Slide Review NO; Basophils Absolute Auto 100 /uL (0-100); Basophils Percent Auto 0.4 % (0-2); Eosinophils Absolute Auto 0 /uL (0-450); Eosinophils Percent Auto 0.1 % (2-4); Hematocrit 30.5 % (36-46); Hemoglobin 10.6 g/dL (12.0-16.0); Lymphocytes Absolute Auto 1600 /uL (1100-4500); Lymphocytes Percent Auto 13.1 % (25-40); Mean Corpuscular HGB Conc 34.9 % (30-36); Mean Corpuscular Hemoglobin 32.4 PG (26-34); Mean Corpuscular Volume 92.7 fL (80-100); Monocytes Absolute Auto 1300 /uL (0-900); Monocytes Percent Auto 10.5 % (3-14); Neutrophils Absolute Auto 9100 /uL (1500-7000); Neutrophils Percent Auto 75.9 % (50-75); Platelet Count 193 X10^3/uL (150-400); Red Blood Cell Count 3.28 X10^6/uL (4.0-5.2); Red Cell Distribution Width 12.2 % (11.6-14.8)
[2019-02-27 05:31] LABS: Blood Urea Nitrogen 6 mg/dL (7-17); Calcium 8.7 mg/dL (8.4-10.2); Carbon Dioxide 28 mmol/L (22-32); Chloride 109 mmol/L (98-107); Estimated Glomerular Filt Rate > 60.0 mL/min (>60); Glucose 51 mg/dL (70-100); HEMOLYSIS < 15 (0-50); Magnesium 1.8 mg/dL (1.6-2.3); Potassium 3.2 mmol/L (3.4-5.1); Sodium 140 mmol/L (137-145)
[2019-02-27] MEDS: PANTOPRAZOLE 40 MG TABLET PO (05:43)
[2019-02-27] MEDS: DEXTROSE 50 % IN WATER 25 GM/50 ML SYRINGE IV (05:43)
[2019-02-27] MEDS: LACTATED RINGERS 1,000 ML 125 ML IV ×2 (05:52→15:29)
[2019-02-27 05:53] LABS: Alanine Aminotransferase 232 IU/L (<35); Albumin 2.7 g/dL (3.5-5.0); Albumin Globulin Ratio 1.2 (1.0-2.8); Alkaline Phosphatase 165 U/L (38-126); Aspartate Aminotransferase 503 IU/L (14-36); Bilirubin Total 0.8 mg/dL (0.2-1.3); Bilirubin Unconjugated 0.5 mg/dL (0.0-1.1); Globulin 2.3 g/dL (1.7-4.1); HEMOLYSIS < 15 (0-50)
[2019-02-27] MEDS: POTASSIUM CHLORIDE 20 MEQ/15 ML UDC 40 MEQ PO (08:39)
--- NOTE | 2019-02-27 08:59 | PM.PN.1 ---
Subjective Subjective Date Patient Seen: 02/27/19 Time Patient Seen: 09:00 Interval history: Sarabjit Jimenes is a 29-year-old female with type 1 diabetes who was admitted initially with DKA. Her DKA has resolved but yesterday she began developing fevers and epigastric pain. Imaging was negative for intra-abdominal sources including gallbladder or biliary tree pathologies. She reports her abdominal pain is improving today. She reports her pain is not related to food intake. Yesterday evening she was advanced to a clear liquid diet, and we will try a regular diet this morning. She continued to have fever last night to 102, although this is improved from the day before. She feels much improved from yesterday. Exam Vital Signs (past 8 hours): - 02/27/19 02:49 02/27/19 03:41 02/27/19 07:30 Temperature 97.7 F 97.7 F 97.2 F L Pulse Rate 96 H 90 Respiratory Rate 18 16 Blood Pressure 125/62 112/62 Pulse Oximetry 98 99 Oxygen Delivery Method Room Air Oxygen Flow Rate 0 Narrative Exam Narrative: GENERAL APPEARANCE: Young female. No acute distress. SKIN: Inspection of the skin reveals no rashes, ulcerations or petechiae. HEENT: The sclerae were anicteric and conjunctivae were pink and moist. Extraocular movements were intact and pupils were equal, round with normal accommodation. External inspection of the ears and nose showed no scars, lesions, or masses. Lips, teeth, and gums showed normal mucosa. The oral mucosa, hard and soft palate, tongue and posterior pharynx were unremarkable. NECK: Supple and symmetric. There was no thyroid enlargement, and no tenderness, or masses were felt. CHEST: Normal AP diameter and normal contour without any kyphoscoliosis. There is epigastric tenderness upon palpation of her chest. LUNGS: Auscultation of the lungs revealed no wheezes, rhonchi, or rales. CARDIOVASCULAR: There is regular rate and rhythm without any murmurs, gallops, rubs. Peripheral pulses were 2+ and symmetric. ABDOMEN: Soft, markedly improved tenderness over the RUQ and epigastrium, now minimal. No distension. MUSCULOSKELETAL: There was no tenderness or effusions noted. Muscle strength and tone were normal. EXTREMITIES: No cyanosis, clubbing or edema. NEUROLOGIC: Alert and oriented x 3. Normal affect. Strength is +5/5 in the Upper Extremities and Lower Extremities Bilaterally. Sensation to touch was normal Objective Labs Result Diagrams: 02/27/19 05:05 02/27/19 05:05 Labs: Laboratory Results - last 24 hr 02/26/19 02/26/19 02/26/19 09:50 09:55 13:10 WBC RBC Hgb Hct MCV MCH MCHC RDW Plt Count Neut % (Auto) Lymph % (Auto) [place] % (Auto) Eos % (Auto) Baso % (Auto) Neut # (Auto) Lymph # (Auto) [place] # (Auto) Eos # (Auto) Baso # (Auto) Sodium Potassium Chloride Carbon Dioxide BUN Creatinine Estimated GFR BUN/Creatinine Ratio Glucose Calcium Magnesium Total Bilirubin 0.9 0.7 Conjugated Bilirubin 0.0 0.0 Unconjugated Bilirubin 0.5 0.5 AST 729 H 677 H ALT 212 H 221 H Alkaline Phosphatase 117 D 143 H Total Protein 5.8 L 5.4 L Albumin 3.1 L 2.9 L Globulin 2.7 2.5 Albumin/Globulin Ratio 1.1 1.2 Hep Bs Antigen Negative Hepatitis C Antibody Negative 02/27/19 02/27/19 02/27/19 05:05 05:05 05:05 WBC 12.0 H D RBC 3.28 L Hgb 10.6 L Hct 30.5 L MCV 92.7 MCH 32.4 MCHC 34.9 RDW 12.2 Plt Count 193 Neut % (Auto) 75.9 H Lymph % (Auto) 13.1 L [place] % (Auto) 10.5 Eos % (Auto) 0.1 L Baso % (Auto) 0.4 Neut # (Auto) 9100 H Lymph # (Auto) 1600 [place] # (Auto) 1300 H Eos # (Auto) 0 Baso # (Auto) 100 Sodium 140 Potassium 3.2 L Chloride 109 H Carbon Dioxide 28 BUN 6 L Creatinine 0.50 L Estimated GFR > 60.0 BUN/Creatinine Ratio 12.0 Glucose 51 L D Calcium 8.7 Magnesium 1.8 Total Bilirubin 0.8 Conjugated Bilirubin 0.0 Unconjugated Bilirubin 0.5 AST 503 H ALT 232 H Alkaline Phosphatase 165 H Total Protein 5.0 L Albumin 2.7 L Globulin 2.3 Albumin/Globulin Ratio 1.2 Hep Bs Antigen Hepatitis C Antibody Assessment & Plan Assessment & Plan narrative: Sarabjit Jimenes is a 29 year old female with past medical history of type 1 diabetes who is admitted to the ICU for DKA. Her anion gap has closed and her bicarb did improve. She was taken off of the insulin drip and DKA is now resolved. however she then developed worsening epigastric pain and fever with a new transaminitis. Abdominal imaging was negative including CT abdomen/RUQ US/MRCP for biliary pathologies. She is being treated with meropenem at this time for broad coverage. Her urine was positive for E coli, however she was asymptomatic upon presentation. This is the only positive source so far. 1. Epigastric pain, acute -differential includes biliary pathologies, infectious hepatic etiologies given fever, gastroparesis, ileus, amongst others. Most concerning given her LFT elevations would be for cholecystitis or even possibly cholangitis. However CT imaging did not show evidence of obstruction and abdominal ultrasound further did not show any evidence of obstruction or infection. Discussed with General surgery and they recommended MRCP for further evaluation which was negative. - continue reglan prn - continue to trend LFTs - can trial carb consistent diet today. 2. Elevated transaminases -marked elevation compared to admission. Does not appear to be related to an obstructive picture at this time given the above imaging. Suspect DILI or hepatocellular disease given laboratory testing. Other than Tylenol patient has not been on any well-known hepatotoxic medications. There are case reports ischemic injury secondary after DKA which this appears it may be. ALT currently rising while AST is falling, there is still no elevation in her bilirubin. -continue to follow LFTs -avoid hepatotoxic medications -continue meropenem for possible infectious etiologies. Consider narrowing tomorrow based on urine culture if continued improvement and repeat CXR, blood cultures remain negative for other sources. -hepatitis serologies pending. Hep B S ag is negative, as is Hep C. -US/CT/MRI shows mild enlargement consistent with fatty infiltration. There was no biliary dilatation, gall bladder wall thickening, no cholelithiasis. 3. Acute cystitis -patient did have WBCs in urine on admission, however no dysuria or urinary frequency was reported. Her culture did grow E coli, and she did spike a fever to 105. Her SOFA score is 1 (hypotension) at this time and she does not meet sepsis criteria. Consider narrowing based on urine culture results tomorrow if fever curve continues to improve and no other source is found. -continue meropenem, if no other infectious etiologies are found would treat for 7 days. Can narrow based on sensitivities, however suspect another possible infectious source which has not been evident so far. 4. DKA (moderate) w/o coma associated w/ DM Type I, acute, present on admission, resolved. - On admission BG 616. sKetones 15.63. Anion Gap 33. Venous ABG. pH 7.05 pCO2 16 pO2 47 HCO3 5 - Currently, anion gap has closed. She had a prolonged NAGMA however this resolved this morning. - Chest x-ray on showed no acute infiltrates. Respiratory panel negative. 5. YURI, acute, present on admission, Resolved - 2/2 DKA and associated hypovolemia, this resolved with IV fluids. - sCr 1.0 (baseline 0.6-0.7) now improved to 0.5. - Trend renal function w/ lab 6. 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 Prior documented h/o non-adherence w/ insulin regimen. Resume tresiga at home dosing today given advancement of diet. - Follows w/ endocrinology, has an appointment with her primary care provider scheduled on Sat (02/27/19). I spoke with her cement gun operator, Dr. Dominguez, who did not recommend any changes to her outpatient regimen at this time, and will try and get her in for a sooner appointment. Code: Full DVT: HSQ Dispo: remains inpatient as patient continues to have fever. Once afebrile and adequately tolerating a PO diet, she will be stable for discharge. Quality VTE Deep Vein Thrombosis/Pulmonary Embolism Present on Admission: No
[2019-02-27] MEDS: SODIUM CHLORIDE 0.9% 250 ML 21 ML IV (10:28)
--- NOTE | 2019-02-27 11:00 | DI.RAD.S_ITS ---
PROCEDURE: XR CHEST 1V INDICATIONS: fever TECHNIQUE: One view of the chest was acquired. COMPARISON: [facility], CR, XR CHEST 1V, 02/24/2019, 10:36. [facility], CR, XR CHEST 1V, 09/27/2018, 8:30. Lung bases on CT 02/25/2019. FINDINGS: Surgical changes and devices: None. Lungs and pleura: Lungs are clear. No pleural effusions or pneumothorax. Mediastinum: Mediastinal contours appear normal. Heart size is normal. Bones and chest wall: No suspicious bony lesions. Overlying soft tissues appear unremarkable. IMPRESSION: No consolidation to suggest pneumonia. Dictated by: Chi Pan M.D. on 02/27/2019 at 11:54 Approved by: Chi Pan M.D. on 02/27/2019 at 11:55
[2019-02-27] MEDS: TRESIBA 40 UNIT 40 EACH SUBCUT (12:10)
[2019-02-27] MEDS: INSULIN ASPART 100 UNIT/ML INSULN PEN SUBCUT ×4 (12:11→21:13)
--- NOTE | 2019-02-27 14:30 | CM.DPC ---
DCP Cont: Per MD, pt received a lot of imaging yesterday and so far no sources for pt's ongoing spikes in fever. Pt's liver tests are better and keeping pt on IV-Abx for now but advancing her diet and possible d/c home tomorrow if medically stable and fevers decrease. ARTHUR called [facility] ([phone]) to screen as a possible new referral as pt has at least 5 admissions to the hospital this year for similar medical concerns related to her diabetes. Breezy states that he will contact [facility] to determine if pt meets criteria for their community outreach program that helps with medical transitions and coordination of services to help reduce pt's risk of readmit. If pt qualifies, they will then reach out to the pt after discharge to set up services. Plan: ARTHUR to follow closely to determine if pt's fevers reduce towards possible d/c home tomorrow if medically stable. RAYMOND Roman
--- NOTE | 2019-02-27 14:59 | PC.NURSE ---
Am shift Pt denies nausea. ABD pain remains, although, better per Pt. Tolerating advanced diet. No increase to pain r/t diet. IVF infusing. IV ABX per Emar. Afebrile this shift. CBG 230 at lunch time. Mother into visit, pleased with progress, as Pt appears brighter and able to ambulate more comfortably this shift.
[2019-02-28] VITALS (8 sets, daily range): BP systolic 106–138; BP diastolic 60–89; PULSE 85–132; RESP 16–20; TEMP 36.5–39.9; O2SAT 95–99
[2019-02-28] MEDS: MEROPENEM 1 GM/50 ML PIGGYBACK IV ×3 (00:49→16:41)
--- NOTE | 2019-02-28 01:05 | PC.NURSE ---
0000-Patient assessed, crying, c/o abdominal pain, denies nausea, IV Dilaudid given per prn. T 103.9, HR 120s-130s when up to BSC, removed multiple blankets, applied ice pack to back of neck, and set up a fan. Will reassess. 0100-Temp 102.1, HRR 111, patient states she is comfortable, pain is controlled, given snack, will check CBG at 0200.
[2019-02-28] MEDS: LACTATED RINGERS 1,000 ML 125 ML IV (02:15)
[2019-02-28] MEDS: HYDROMORPHONE 0.5 MG INJ IV ×2 (03:37→08:10)
[2019-02-28 05:03] LABS: Add Manual Diff / Slide Review NO; Basophils Absolute Auto 0 /uL (0-100); Basophils Percent Auto 0.6 % (0-2); Eosinophils Absolute Auto 0 /uL (0-450); Eosinophils Percent Auto 0.3 % (2-4); Hematocrit 30.8 % (36-46); Hemoglobin 10.5 g/dL (12.0-16.0); Lymphocytes Absolute Auto 1200 /uL (1100-4500); Lymphocytes Percent Auto 16.8 % (25-40); Mean Corpuscular HGB Conc 34.2 % (30-36); Mean Corpuscular Hemoglobin 32.4 PG (26-34); Mean Corpuscular Volume 94.8 fL (80-100); Monocytes Absolute Auto 1000 /uL (0-900); Monocytes Percent Auto 13.3 % (3-14); Neutrophils Absolute Auto 5000 /uL (1500-7000); Platelet Count 165 X10^3/uL (150-400); Red Blood Cell Count 3.25 X10^6/uL (4.0-5.2); White Blood Cell Count 7.2 X10^3/uL (4.5-11.0)
[2019-02-28 05:08] LABS: BUN Creatinine Ratio 18.6 (6-22); Blood Urea Nitrogen 13 mg/dL (7-17); Calcium 8.3 mg/dL (8.4-10.2); Carbon Dioxide 22 mmol/L (22-32); Chloride 98 mmol/L (98-107); Estimated Glomerular Filt Rate > 60.0 mL/min (>60); Glucose 356 mg/dL (70-100); HEMOLYSIS < 15 (0-50); Magnesium 1.7 mg/dL (1.6-2.3); Potassium 4.1 mmol/L (3.4-5.1); Sodium 133 mmol/L (137-145)
[2019-02-28 05:09] LABS: Alanine Aminotransferase 152 IU/L (<35); Albumin 2.9 g/dL (3.5-5.0); Albumin Globulin Ratio 1.4 (1.0-2.8); Alkaline Phosphatase 168 U/L (38-126); Aspartate Aminotransferase 100 IU/L (14-36); Bilirubin Total 0.7 mg/dL (0.2-1.3); Bilirubin Unconjugated 0.4 mg/dL (0.0-1.1); Globulin 2.1 g/dL (1.7-4.1); HEMOLYSIS < 15 (0-50)
[2019-02-28 08:10] LABS: Procalcitonin 1.36 ng/mL (<0.5)
--- NOTE | 2019-02-28 09:21 | DI.US.S_ITS ---
PROCEDURE: US PELVIC COMPLETE INDICATIONS: PAIN TECHNIQUE: Real-time scanning was performed of the pelvic organs, with image documentation. Additional endovaginal scanning was necessary due to incomplete visualization of the adnexal and endometrial structures by transabdominal scanning. COMPARISON: [facility], CR, XR CHEST 1V, 02/27/2019, 11:31. [facility], US, US ABDOMEN LIMITED, 02/26/2019, 20:17. [facility], MR, MR ABDOMEN WO CON, 02/26/2019, 14:32. [facility], CT, KIDNEY/ URETER/BLADDER, 06/02/2012, 0:10. [facility], CT, KIDNEY/ URETER/BLADDER, 12/25/2011, 0:48. [facility], US, PELVIC COMPLETE, 12/25/2011, 0:41. FINDINGS: Transabdominal scanning: Limited scanning through the kidneys shows no hydronephrosis. A moderate amount of free fluid can be seen anteriorly and within the posterior cul-de-sac. Endovaginal scanning: Uterus: Uterus is normal in size at 6.2 x 3.1 x 3.9 cm. The endometrium measures 1 mm in combined thickness. Ovaries: The right ovary measures 2.6 x 1.5 x 2.8 cm. The left ovary measures 2.5 x 1.3 x 1 cm. The ovaries have a normal sonographic appearance. No adnexal masses are seen. IMPRESSION: There is a moderate amount of free pelvic fluid is seen, which is supportive of a diagnosis of a pelvic infection. Close clinical followup, with serial beta-hCG and serial ultrasound are recommended, as clinically appropriate. No findings of dilated fallopian tubes or abscess collections can be seen. No masses are seen on these images. Dictated by: Remi Polanco M.D. on 02/28/2019 at 13:06 Approved by: Remi Polanco M.D. on 02/28/2019 at 13:09
[2019-02-28] MEDS: PANTOPRAZOLE 40 MG TABLET PO (09:23)
[2019-02-28] MEDS: HEPARIN 5,000 UNIT/ML VIAL 5000 UNIT SUBCUT ×2 (09:24→20:33)
[2019-02-28] MEDS: INSULIN ASPART 100 UNIT/ML INSULN PEN 6 UNIT SUBCUT ×3 (09:24→16:43)
[2019-02-28] MEDS: INSULIN ASPART 100 UNIT/ML INSULN PEN SUBCUT ×3 (09:26→16:42)
[2019-02-28 10:36] LABS: Urine N gonorrhoeae NOT DETECTED
[2019-02-28 10:42] LABS: Urine Chlamydia NOT DETECTED
[2019-02-28 11:19] LABS: Lipase 51 U/L (23-300)
--- NOTE | 2019-02-28 11:19 | P.CONS_ITS ---
History of Present Illness Consult details Date Patient Seen: 02/28/19 Time Patient Seen: 11:19 Chief complaint: BODY ACHE WANTS TO THROW UP Reason for consult: High fevers without an obvious source of infection Requesting provider: Susy Vargas Narrative: Patient is a 29-year-old 0 who presented to the hospital on SaturdayFebruary 23 in diabetic ketoacidosis. On day 3 of hospitalization patient developed a high fever up to 105. She she is on broad-spectrum antibiotics. The only source of infection so far is E coli that was grown out of the urine. Patient reports no fever or chills prior to coming to the hospital. She had no vaginal discharge. She has had worsening dyspareunia over the last few months. She is on oral contraceptives continuously and has not had a period since July. She takes only that oral contraceptives and insulin at home. [facility] Medical History (Updated 02/28/19 @ 11:34 by Scarlett Vegas MD) DKA (diabetic ketoacidoses) (Resolved) History of pyelonephritis (Resolved) Irregular menstrual cycle (Acute) Migraine headache (Chronic) Nephrolithiasis (Resolved) Type 1 diabetes mellitus (Chronic) Surgical History (Updated 02/28/19 @ 11:22 by Scarlett Vegas MD) History of ureter stent (Resolved) Status post laser lithotripsy of ureteral calculus (Acute) [place] teeth extracted (Acute) Family History Father In good health Mother Cardiac disease Social History (Updated 02/28/19 @ 11:25 by Scarlett Vegas MD) details: Engaged household members: significant other and family Smoking Status: Never smoker alcohol intake: never Meds Home Medications and Allergies Home Medications Medication Instructions Recorded Confirmed Type Tresiba FlexTouch U-100 40 unit SUB-Q DAILY #15 ml 12/12/18 02/16/19 Rx glucose 4 gram PO Q15M PRN #30 tab 12/12/18 02/23/19 Rx Glucagon Emergency Kit (human) 1 mg SUBCUT DIRECTED 02/16/19 02/23/19 History cholecalciferol (vitamin D3) 2,000 unit PO DAILY 02/16/19 02/23/19 History [Vitamin D3] ergocalciferol (vitamin D2) 50,000 unit PO QWEEK 02/16/19 02/23/19 History [Vitamin D2] insulin lispro [Humalog KwikPen 0 unit SUBCUT TID 02/16/19 02/23/19 History Insulin] norethindrone (contraceptive) 0.35 mg PO DAILY 02/16/19 02/23/19 History [[place]] Allergies Allergy/AdvReac Type Severity Reaction Status Date / Time abdalla [ABDALLA] Allergy Intermediate Hives, Verified 02/24/19 08:00 pruritus iodine [IODINE] Allergy Intermediate rash, itchy Verified 02/24/19 08:00 morphine Allergy Intermediate Difficulty Verified 02/24/19 08:00 Breathing shellfish derived Allergy Intermediate rash Verified 02/24/19 08:00 [SHELLFISH DERIVED] adhesive [ADHESIVE] Allergy Unknown tape Verified 02/24/19 08:00 latex [LATEX] Allergy Unknown Hives Verified 02/24/19 08:00 Review of Systems Constitutional Constitutional: Denies body ache(s), Denies chills, Denies excessive sweating, Denies malaise and Denies night sweats Gastrointestinal Gastrointestinal: Denies abdominal pain, Denies bloating, Denies change in bowel habits, Denies change in stool character, Denies constipation, Denies loose stools, Denies nausea and Denies vomiting Genitourinary Genitourinary: Denies abnormal menses, Denies dysmenorrhea, Denies abnormal vaginal bleeding, Denies metrorrhagia, Denies vaginal discharge, Denies vaginal odor, Denies vaginal pruritus, Reports dyspareunia, Denies urinary frequency, Denies difficulty voiding, Denies urinary incontinence, Denies urinary hesitancy, Denies urinary urgency, Denies genital pruritis, Denies genital lesions, Reports pelvic pain (With intercourse) and Denies flank pain Endocrine Endocrine: Denies excessive sweating Exam Vital Signs (past 8 hours): - 02/28/19 03:45 02/28/19 10:24 Temperature 101.4 F H Pulse Rate 116 H 122 H Respiratory Rate 18 16 Blood Pressure 129/84 Pulse Oximetry 96 96 Oxygen Delivery Method Room Air Oxygen Flow Rate 0 Narrative Exam Narrative: Generally: Patient is sitting up in bed, talking with significant other, no acute distress Lungs: Clear to auscultation bilaterally Cardiovascular: Regular rate and rhythm Abdomen: Soft and flat. Good bowel sounds in all 4 quadrants. No guarding or rebound tenderness. No masses palpable. Back: No CVA tenderness External genitalia: No fluctuant areas. No lesions. There is a small 1 cm well-healed scar on the right lower vulva. Erythema of the labia minora and majora. Vagina: White, thick discharge. Cervix: No lesions. Bimanual exam: A 5 week size anteverted uterus. No cervical motion tenderness. No adnexal masses or tenderness. Perirectal area: No fluctuant areas. No tenderness. No erythema. Objective Labs Result Diagrams: 02/28/19 04:25 02/28/19 04:25 Labs: Laboratory Results - last 24 hr 02/28/19 02/28/19 02/28/19 04:25 04:25 04:25 WBC 7.2 RBC 3.25 L Hgb 10.5 L Hct 30.8 L MCV 94.8 MCH 32.4 MCHC 34.2 RDW 12.0 Plt Count 165 Neut % (Auto) 69.0 Lymph % (Auto) 16.8 L [place] % (Auto) 13.3 Eos % (Auto) 0.3 L Baso % (Auto) 0.6 Neut # (Auto) 5000 Lymph # (Auto) 1200 [place] # (Auto) 1000 H Eos # (Auto) 0 Baso # (Auto) 0 Sodium 133 L Potassium 4.1 Chloride 98 Carbon Dioxide 22 BUN 13 Creatinine 0.70 Estimated GFR > 60.0 BUN/Creatinine Ratio 18.6 Glucose 356 H D Calcium 8.3 L Magnesium 1.7 Total Bilirubin 0.7 Conjugated Bilirubin 0.0 Unconjugated Bilirubin 0.4 AST 100 H ALT 152 H Alkaline Phosphatase 168 H Total Protein 5.0 L Albumin 2.9 L Globulin 2.1 Albumin/Globulin Ratio 1.4 Procalcitonin Ur Chlamydia DNA (PCR) N gonorrhoeae DNA (PCR) 02/28/19 02/28/19 04:25 07:30 WBC RBC Hgb Hct MCV MCH MCHC RDW Plt Count Neut % (Auto) Lymph % (Auto) [place] % (Auto) Eos % (Auto) Baso % (Auto) Neut # (Auto) Lymph # (Auto) [place] # (Auto) Eos # (Auto) Baso # (Auto) Sodium Potassium Chloride Carbon Dioxide BUN Creatinine Estimated GFR BUN/Creatinine Ratio Glucose Calcium Magnesium Total Bilirubin Conjugated Bilirubin Unconjugated Bilirubin AST ALT Alkaline Phosphatase Total Protein Albumin Globulin Albumin/Globulin Ratio Procalcitonin 1.36 H Ur Chlamydia DNA (PCR) Not detected N gonorrhoeae DNA (PCR) Not detected Assessment & Plan Assessment and plan (1) Fever of unknown origin: Current visit: Yes Status: Acute (2) Vulvovaginitis due to yeast: Problem details: Assessment: 29-year-old 0 with uncontrolled diabetes who presented in DKA Patient now with fever of unknown origin except E coli from the urine Yeast vulvovaginitis Plan: Diflucan 100 mg p.o. q.day for 7 days Mycolog-II ointment to the external genitalia twice a day for 14 days Ultrasound of the pelvis to rule out any pelvic abscess Current visit: Yes Status: Acute
--- NOTE | 2019-02-28 12:01 | DI.CT.S_ITS ---
PROCEDURE: CT CHEST ABD PEL W CON INDICATIONS: high fever, history of renal abscess TECHNIQUE: After the administration of oral and intravenous contrast, 5 mm thick sections acquired from the lung apices to the symphysis. 5 mm coronal and sagittal reformats were performed, with additional 7 mm coronal MIP reformats through the lungs. For radiation dose reduction, the following was used: automated exposure control, adjustment of mA and/or kV according to patient size. COMPARISON: [facility], US, US ABDOMEN LIMITED, 02/26/2019, 20:17. [facility], CR, XR CHEST 1V, 02/27/2019, 11:31. [facility], US, US PELVIC COMPLETE, 02/28/2019, 12:29. FINDINGS: Image quality: Excellent. CHEST: Lungs and pleura: There is poorly defined opacity seen dependently within both lower lobes. Small bilateral pleural effusions are seen. No pneumothorax. Central and peripheral airways appear patent and normal in caliber. Mediastinum: Heart size is normal. No pericardial effusion. No mediastinal or hilar adenopathy by size criteria. Thoracic aorta and central pulmonary arteries are normal in size. Esophagus is normal in caliber. No hiatal hernia. Chest wall: No axillary or supraclavicular adenopathy by size criteria. Thyroid gland demonstrates no significant CT abnormality. ABDOMEN: Solid organs: Liver is normal in size and enhancement. Gallbladder demonstrates moderate pericholecystic fluid. Biliary system is non dilated. Pancreas enhances normally. Spleen is normal in size and enhancement. Incidental note is made of an accessory spleen along the inferior aspect of the primary spleen. No adrenal nodules. The kidneys demonstrate normal size. The kidneys enhance symmetrically. Along the lateral inferior aspect of the left kidney, there is poorly defined fluid seen that measures 2.5 cm, with abnormal perinephric fluid seen. Along the superior pole of left kidney, there is a simple appearing, although less prominent focus seen. There is no hydronephrosis seen on either side. No stones are seen to the limits of this contrast enhanced study. Peritoneum and bowel: Bowel loops demonstrate normal wall thickness and caliber. No free air. There is a moderate amount of stool seen within the colon. Nodes and vessels: Enlarged retroperitoneal lymph nodes are seen, with the largest seen within the left periaortic region measuring 14 x 22 mm in greatest axial dimension. Aorta and inferior vena cava are normal in size. Miscellaneous: No ventral hernias. Abnormal generalized body wall edema can be seen. PELVIS: Genitourinary: Bladder wall thickness is normal. There is a mild amount of free fluid seen within the pelvis, which is considered to be within physiologic limits for a woman of this age. Miscellaneous: No inguinal hernias or adenopathy. Bones: No suspicious bony lesions. No vertebral body compression fractures. IMPRESSION: Left kidney pyelonephritis until proven otherwise. No varghese loculated abscess can be seen. Enlarged retroperitoneal lymph nodes are seen. The gallbladder is abnormal, with moderate pericholecystic fluid. It is noted that no pericholecystic fluid was seen on the ultrasound dated 02/26/19. Small bilateral pleural effusions, likely atelectasis at the lung bases. Differential diagnosis includes mild to poorly defined lower lobe infiltrates, however. There is a moderate amount of stool seen within the colon. Please correlate with an underlying history of constipation. Dictated by: Remi Polanco M.D. on 02/28/2019 at 14:40 Approved by: Remi Polanco M.D. on 02/28/2019 at 14:47
[2019-02-28] MEDS: TRESIBA 40 UNIT 40 EACH SUBCUT (12:12)
--- NOTE | 2019-02-28 12:49 | P.PN_ITS ---
Subjective Subjective Date Patient Seen: 02/28/19 Interval history: Sarabjit Jimenes is a 29-year-old female patient with a past medical history significant for diabetes mellitus type 1, recurrent vaginal yeast infections, prior vulvar abscess, and prior fungal 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 The patient is resting in bed appears mildly uncomfortable. She continued to spike high fevers overnight with a T-max 103.9?F. The patient reports she has significant epigastric abdominal pain that is persistent and not improving. She is exquisitely tender to touch with voluntary guarding in her epigastrium (unclear if it is visceral/referred pain versus superficial (i.e. cost ochondritis). Sha has had a mild dry non-productive cough. She denies headache, ear or sinus pain, rhinitis, sore throat, shortness of breath, chest pain, nausea, vomiting, dysuria, diarrhea or constipation. She is voiding without difficulty. She has not had a BM since admission and a bowel regimen has been implemented. She is up ambulating without assistance. Exam Vital Signs (past 8 hours): - 02/28/19 10:24 Pulse Rate 122 H Respiratory Rate 16 Pulse Oximetry 96 Oxygen Delivery Method Room Air Oxygen Flow Rate 0 Narrative Exam Narrative: General: Young female lying in bed and in no acute distress, well-developed, well-nourished, withdrawn and depressed mood but appropriately interactive. HEENT: Normocephalic, atraumatic. External ears without defect. Pupils equal, round, and reactive to light. Anicteric sclerae, moist conjunctivae, and no lid lag. Neck: Supple with full range of motion. No lymphadenopathy or thyromegaly. Cardiovascular: Regular rhythm, mild tachycardia, without murmurs, rubs, or gallops appreciated. Pulmonary: Clear to auscultation bilaterally without crackles, wheezes, or rhonchi. Normal respiratory effort without use of accessory muscles. Abdomen: Soft, bowel sounds present, significant tenderness to palpation in epigastrum with voluntary guarding, mild RUQ abdominal tenderness to palpation with positive Etta sign, nondistended. Left sided flank tenderness with positive Llyod's sign. No hepatosplenomegaly or masses appreciated. Genitourinary: Vulvar erythema with white discharge consistent with vaginal candidiasis. Extremities: No clubbing or cyanosis. Mild bipedal edema. Skin: Normal temperature, turgor, and texture. Neurological: Cranial nerves grossly intact. Psychiatric: Moderately depressed mood, emotional lability and flat affect. Alert and oriented to person, place, and time. Objective Labs Result Diagrams: 03/01/19 04:55 03/01/19 04:55 Labs: Laboratory Results - last 24 hr 02/28/19 02/28/19 02/28/19 04:25 04:25 04:25 WBC 7.2 RBC 3.25 L Hgb 10.5 L Hct 30.8 L MCV 94.8 MCH 32.4 MCHC 34.2 RDW 12.0 Plt Count 165 Neut % (Auto) 69.0 Lymph % (Auto) 16.8 L [place] % (Auto) 13.3 Eos % (Auto) 0.3 L Baso % (Auto) 0.6 Neut # (Auto) 5000 Lymph # (Auto) 1200 [place] # (Auto) 1000 H Eos # (Auto) 0 Baso # (Auto) 0 Sodium 133 L Potassium 4.1 Chloride 98 Carbon Dioxide 22 BUN 13 Creatinine 0.70 Estimated GFR > 60.0 BUN/Creatinine Ratio 18.6 Glucose 356 H D Calcium 8.3 L Magnesium 1.7 Total Bilirubin 0.7 Conjugated Bilirubin 0.0 Unconjugated Bilirubin 0.4 AST 100 H ALT 152 H Alkaline Phosphatase 168 H Total Protein 5.0 L Albumin 2.9 L Globulin 2.1 Albumin/Globulin Ratio 1.4 Lipase Procalcitonin Ur Chlamydia DNA (PCR) N gonorrhoeae DNA (PCR) 02/28/19 02/28/19 02/28/19 04:25 04:25 07:30 WBC RBC Hgb Hct MCV MCH MCHC RDW Plt Count Neut % (Auto) Lymph % (Auto) [place] % (Auto) Eos % (Auto) Baso % (Auto) Neut # (Auto) Lymph # (Auto) [place] # (Auto) Eos # (Auto) Baso # (Auto) Sodium Potassium Chloride Carbon Dioxide BUN Creatinine Estimated GFR BUN/Creatinine Ratio Glucose Calcium Magnesium Total Bilirubin Conjugated Bilirubin Unconjugated Bilirubin AST ALT Alkaline Phosphatase Total Protein Albumin Globulin Albumin/Globulin Ratio Lipase 51 Procalcitonin 1.36 H Ur Chlamydia DNA (PCR) Not detected N gonorrhoeae DNA (PCR) Not detected Assessment & Plan Assessment & Plan narrative: Sarabjit Jimenes is a 29-year-old female patient with a past medical history significant for diabetes mellitus type 1, recurrent vaginal yeast infections, prior vulvar abscess, and prior fungal pyelonephritis secondary to obstructive u ropathy from nephrolithiasis who presented to the ED with persistent nausea and epigastric discomfort. 1. Acute left-sided pyelonephritis, present on admission. Active. -Patient has persistent mid epigastric with high fever. Patient also complex history of prior fungal pyelonephritis/abscess secondary to obstructive uropathy from nephrolithiasis. -CT abdomen and pelvis with and without contrast demonstrated left kidney pyelonephritis without varghese loculated abscess and enlarged retroperitoneal lymph nodes. -Previous urine culture grew pansensitive E.coli and was not treated initially as patient denied symptoms other than urinary frequency. -Discussed case with [facility] and recommended changing antibiotics to Zosyn to better cover abdominal organisms for possible acalculous cholecystitis. Discontinued meropenem and started Zosyn 3.375 g IV every 8 hours. -Patient has had intermittent and brief elevation of WBC. Procalcitonin was performed and was elevated at 1.36. Cotninue to monitor WBC and procalcitonin daily until normalized. 2. Acute acalculous cholecystitis with isolated transaminitis, present on admission. Active. -Possibly acute acalculous cholecystitis vs reactive inflammation due PID and [id number] syndrome with painful intercourse and LFT elevation? -Patient has significant tenderness to palpation in mid epigastum with voluntary guarding and mild RUQ tenderness with positive Gómez's sign. -CT abdomen and pelvis demonstrated abnormal gallbladder with moderate pericholecystic fluid. It is noted that no pericholecystic fluid was seen on the ultrasound dated 02/26/19. -MRCP demonstrated distended gallbladder without evidence of cholelithiasis or biliary ductal dilitation. -All abdominal imaging demonstrated mild enlargement of liver consistent with fatty infiltration. -Patient had isolated transaminitis with ALT peaked to 232 and normalizing and AST peaked to 729 and normalizing. Bilirubin normal. Patient without evidence of hepatobiliary obstruction or dilatation on all imaging modalities. -Acute hepatitis panel negative. -Continue to monitor LFTs daily. -Continue to avoid hepatotoxic medications. -Consulted gynecology, Dr. Vegas, as below. -Consulted general surgery, Dr. Esqueda, for further evaluation and he will plan on seeing the patient tomorrow. 3. Recurrent layla vulvovaginitis with possible PID, present on admission. Active. -Chlamydia and gonorrhea were negative. -Consulted Dr. Vegas who believes PID is unlikely given exam findings, however, patient has been on broad spectrum antibiotics with meropenem for several days. -Patient is started on nystatin cream applied twice daily to labia and diflucan 100 mg daily for 7 days. -Continue broad spectrum antibiotics as above. 4. YURI, present on admission. Resolved. -Multifactorial and secondary to DKA with associated hypovolemia and UTI with now left-sided pyelonephritis. , this resolved with IV fluids. -Initial creatinine 1.0. Baseline creatinine 0.6-0.7 and quickly improved to baseline with IV fluid hydration. -Continue to monitor renal function closely. 5. Acute DKA on chronic diabetes mellitus type 1, present on admission. Acute DKA resolved. -Hemoglobin A1c >14% on 02/17/2019 reflective of poor glycemic control likely due to medical non-compliance in regard to medications and undoubtedly diet. -Patient has had multiple recurrent DKA hospitalizations with most recent 02/16 5 days priro to readmission. -Previous provider spoke with her industrial service technician, Dr. Dominguez, who did not recommend any changes to her outpatient regimen at this time, and will try and get her in for a sooner appointment. -Initial blood glucose 616. Serum ketones 15.63. Anion Gap 33. VBG demonstrarted metabolic acidosis with respiratory compensation pH 7.05, pCO2 16, pO2 47, HCO3 5. -Chest x-ray on showed no acute infiltrates. Respiratory panel negative. Underlying sources as above. -Initiated DKA protocol with insulin gtt, fluid replacement with normal saline then transitioned to 0.45% normal saline and then D5 0.45% normal saline until blood glucose was less than 250. Monitored of blood glucose and electrolytes every 4 hours until anion gap closed and repleted as necessary. Transitioned off insulin gtt and restarted home regimen. -Continue Tresiba 40 units daily, nutritional insulin with Humalog increased from 3 to 6 units with meals and medium dose correctional scale insulin. 6. Acute anion gap metabolic acidosis, present on admission. Resolved. -VBG demonstrated metabolic acidosis with respiratory compensation: pH 7.05, pCO2 16, pO2 47, HCO3 5. -Continued to treat DKA as above and other underlying causes. 7. Medical noncompliance, present on admission. Ongoing. -Reinforced need for routine blood glucose checks, corrected insulin management and appropriate diet. -Dietitian consulted to re-educate and reinforce dietary management. Appreciate recs. -SHOP MECH[employer]IC consulted and could consider outpatient referral to for more intricate and interdisciplinary management. Disposition: Patient remains inpatient until above conditions adequately treated and fevers have improved/resolved. Quality VTE Deep Vein Thrombosis/Pulmonary Embolism Present on Admission: No
--- NOTE | 2019-02-28 12:52 | CM.DPC ---
DCP Cont: Discussed patient during team rounds. Dr. Vargas mentioned that she will consult with Dr. Warren in OB to see patient and do an exam, to rule out potential pelvic infection. Patient has continued to have intermittent fevers while here. Looking at note from RAYMOND Brannon, she has been in contact with [facility] in [facility], who will discuss with Regional correctional counselor/case manager. Was noted that patient had been contacted by rehabilitation case coordinator from [facility] at last discharges, and patient did not answer their calls. Dr. Vegas did see patient today, and ordered some medications for vaginitis. She will be having a pelvic ultrasound as well. P: DCP to continue to follow and will be available for any additional resources. Anni Rudd RN/Primary Clinician
[2019-02-28] MEDS: NYSTATIN OINTMENT 15 APPLIC/TUBE OINT...G. TOP ×2 (13:07→20:33)
[2019-02-28] MEDS: FLUCONAZOLE 100 MG TABLET PO (13:07)
[2019-02-28] MEDS: diphenhydrAMINE 50 MG/ML VIAL 25 MG IV (14:27)
[2019-02-28] MEDS: methylPREDNISolone 125 MG/2 ML VIAL IV (14:27)
--- NOTE | 2019-02-28 15:16 | PC.NURSE ---
pt intermittently tearful and angry- she was crying out in pain at beginning of shift, medicated once with iv dilaudid prior to its d/c, saline locked - many diagnostic exams done today - pending results.
[2019-02-28 15:58] LABS: Hepatitis A Ab Total Nonreactive (Nonreactive); Hepatitis B Core Antibody Nonreactive (Nonreactive)
[2019-02-28 17:12] LABS: Hepatitis B Surf Ab Qualitativ Nonreactive (Nonreactive)
--- NOTE | 2019-02-28 22:52 | PC.NURSE ---
Patient has been resting in bed most of the shift. Up to the bedside commode independently. Up to shower at this time. Blood sugars range 85-179. Patient has been A&O, calm and cooperative.
[2019-03-01] MEDS: PIPERACILLIN-TAZO 3.375 GM/50 ML FROZ.PIGGY IV ×4 (00:16→21:04)
[2019-03-01] MEDS: SODIUM CHLORIDE 0.9% FLUSH 10 ML IV ×2 (00:17→21:05)
[2019-03-01 04:00] VITALS: BP 107/58; PULSE 87; RESP 18; TEMP 36.8; O2SAT 95
[2019-03-01 05:36] LABS: Add Manual Diff / Slide Review NO; Basophils Absolute Auto 0 /uL (0-100); Basophils Percent Auto 0.6 % (0-2); Eosinophils Absolute Auto 0 /uL (0-450); Eosinophils Percent Auto 0.1 % (2-4); Hematocrit 31.6 % (36-46); Lymphocytes Absolute Auto 700 /uL (1100-4500); Lymphocytes Percent Auto 14.4 % (25-40); Mean Corpuscular HGB Conc 34.7 % (30-36); Mean Corpuscular Hemoglobin 32.3 PG (26-34); Mean Corpuscular Volume 92.9 fL (80-100); Monocytes Absolute Auto 300 /uL (0-900); Monocytes Percent Auto 5.5 % (3-14); Neutrophils Absolute Auto 4000 /uL (1500-7000); Neutrophils Percent Auto 79.4 % (50-75); Platelet Count 248 X10^3/uL (150-400); Red Cell Distribution Width 12.5 % (11.6-14.8)
[2019-03-01 05:57] LABS: Procalcitonin 0.99 ng/mL (<0.5)
[2019-03-01 06:14] LABS: Albumin 3.5 g/dL (3.5-5.0); Albumin Globulin Ratio 1.3 (1.0-2.8); Alkaline Phosphatase 169 U/L (38-126); Aspartate Aminotransferase 46 IU/L (14-36); BUN Creatinine Ratio 28.6 (6-22); Bilirubin Total 0.5 mg/dL (0.2-1.3); Blood Urea Nitrogen 20 mg/dL (7-17); Calcium 9.1 mg/dL (8.4-10.2); Carbon Dioxide 28 mmol/L (22-32); Chloride 99 mmol/L (98-107); Estimated Glomerular Filt Rate > 60.0 mL/min (>60); Globulin 2.8 g/dL (1.7-4.1); Glucose 299 mg/dL (70-100); HEMOLYSIS < 15 (0-50); Magnesium 2.1 mg/dL (1.6-2.3); Potassium 3.7 mmol/L (3.4-5.1); Sodium 138 mmol/L (137-145); Total Protein 6.3 g/dL (6.3-8.2)
[2019-03-01 06:15] LABS: TSH w/ Reflex to FT4 0.37 uIU/mL (0.47-4.68)
[2019-03-01 06:39] LABS: Alanine Aminotransferase 113 IU/L (<35)
[2019-03-01 06:56] LABS: Free T4, Direct Thyroxine 1.44 ng/dL (0.78-2.19)
[2019-03-01 08:00] VITALS: BP 134/79; PULSE 84; RESP 18; TEMP 36.2; O2SAT 99
[2019-03-01] MEDS: INSULIN ASPART 100 UNIT/ML INSULN PEN 6 UNIT SUBCUT ×3 (08:16→17:13)
[2019-03-01] MEDS: INSULIN ASPART 100 UNIT/ML INSULN PEN SUBCUT ×4 (08:16→21:04)
[2019-03-01] MEDS: FLUCONAZOLE 100 MG TABLET PO (08:18)
--- NOTE | 2019-03-01 09:03 | DI.NM.S_ITS ---
PROCEDURE: NM HIDA WITH CCK PHARMACEUTICAL: 5.4 mCi Tc-99m mebrofenin IV; 1.0 mcg CCK IV. INDICATIONS: ?biliary dyskinesa fevers no gallstanes TECHNIQUE: Following intravenous administration of Tc-99m mebrofenin, sequential anterior abdominal images were obtained. To evaluate the contractile response of the gallbladder in response to Cholecystokinin (CCK), sincalide (0.02 ?g/kg) was administered by slow intravenous infusion approximately 60 minutes after the administration of the radiopharmaceutical. Sequential imaging was continued for 30 minutes after the start of CCK infusion. Gallbladder ejection fraction was calculated. COMPARISON: None. FINDINGS: Biliary scan: There is normal tracer uptake and excretion by the liver. There is normal visualization of the intrahepatic ducts, common bile duct, and gallbladder. There is normal tracer transit into the duodenum. CCK stimulation: There is normal contractile response of the gallbladder to CCK infusion. The calculated gallbladder ejection fraction is 43%; normal values are above 35%. It has been shown that any patient abdominal pain after CCK administration is related to the rate of CCK injection, rather than to any underlying gallbladder disease (Clinical Nuclear Medicine 2012; 37: 63-70. Journal of Nuclear Medicine 2014; 55: 1-9). IMPRESSION: 1. Normal filling of gallbladder. No evidence for acute cholecystitis. 2. Normal contractile response of gallbladder to CCK stimulation. Dictated by: Keven Dotson M.D. on 03/02/2019 at 16:18 Approved by: Keven Dotson M.D. on 03/02/2019 at 16:19
--- NOTE | 2019-03-01 10:20 | PM.CN ---
History of Present Illness Consult details Date Patient Seen: 03/01/19 Time Patient Seen: 10:20 Chief complaint: BODY ACHE WANTS TO THROW UP Narrative: 29-year-old white female patient has been in the hospital here for a week she has had several recent episodes of DKA. She has well documented left pyelonephritis. She has been spiking very high fevers until the last 24 hours were her temperatures have moderated. I asked to see the patient for possible gallbladder disease. Patient has had numerous abdominal ultrasounds and CT scans. Well documented is left pyelonephritis. There may even be a perinephric abscess. This is questionable on her CT. She has been demonstrated to have a dilated gallbladder. However she has no gallstones and has no sign of biliary ductal obstruction. She does have mild elevation of transaminases with a normal bilirubin. [facility] Medical History (Updated 02/28/19 @ 11:34 by Scarlett Vegas MD) DKA (diabetic ketoacidoses) (Resolved) History of pyelonephritis (Resolved) Irregular menstrual cycle (Acute) Migraine headache (Chronic) Nephrolithiasis (Resolved) Type 1 diabetes mellitus (Chronic) Surgical History (Updated 02/28/19 @ 11:22 by Scarlett Vegas MD) History of ureter stent (Resolved) Status post laser lithotripsy of ureteral calculus (Acute) [place] teeth extracted (Acute) Family History Father In good health Mother Cardiac disease Social History (Updated 02/28/19 @ 11:25 by Scarlett Vegas MD) details: Engaged household members: significant other and family Smoking Status: Never smoker alcohol intake: never Meds Home Medications and Allergies Home Medications Medication Instructions Recorded Confirmed Type Tresiba FlexTouch U-100 40 unit SUB-Q DAILY #15 ml 12/12/18 02/16/19 Rx glucose 4 gram PO Q15M PRN #30 tab 12/12/18 02/23/19 Rx Glucagon Emergency Kit (human) 1 mg SUBCUT DIRECTED 02/16/19 02/23/19 History cholecalciferol (vitamin D3) 2,000 unit PO DAILY 02/16/19 02/23/19 History [Vitamin D3] ergocalciferol (vitamin D2) 50,000 unit PO QWEEK 02/16/19 02/23/19 History [Vitamin D2] insulin lispro [Humalog KwikPen 0 unit SUBCUT TID 02/16/19 02/23/19 History Insulin] norethindrone (contraceptive) 0.35 mg PO DAILY 02/16/19 02/23/19 History [[place]] Allergies Allergy/AdvReac Type Severity Reaction Status Date / Time abdalla [ABDALLA] Allergy Intermediate Hives, Verified 02/24/19 08:00 pruritus iodine [IODINE] Allergy Intermediate rash, itchy Verified 02/24/19 08:00 morphine Allergy Intermediate Difficulty Verified 02/24/19 08:00 Breathing shellfish derived Allergy Intermediate rash Verified 02/24/19 08:00 [SHELLFISH DERIVED] adhesive [ADHESIVE] Allergy Unknown tape Verified 02/24/19 08:00 latex [LATEX] Allergy Unknown Hives Verified 02/24/19 08:00 Exam Vital Signs (past 8 hours): - 03/01/19 04:00 03/01/19 08:00 Temperature 98.2 F 97.1 F L Pulse Rate 87 84 Respiratory Rate 18 18 Blood Pressure 107/58 L 134/79 Pulse Oximetry 95 99 Oxygen Delivery Method Room Air Oxygen Flow Rate 0 Narrative Exam Narrative: Patient is afebrile and fairly comfortable. Her only complaint is left flank pain and tenderness. There is skin and sclerae are clear with no sign of jaundice. Abdomen is soft and nondistended. There is some epigastric tenderness. She certainly has left CVA tenderness. Objective Labs Result Diagrams: 03/01/19 04:55 03/01/19 04:55 Labs: Laboratory Results - last 24 hr 02/26/19 02/26/19 02/26/19 09:55 09:55 09:55 WBC RBC Hgb Hct MCV MCH MCHC RDW Plt Count Neut % (Auto) Lymph % (Auto) [place] % (Auto) Eos % (Auto) Baso % (Auto) Neut # (Auto) Lymph # (Auto) [place] # (Auto) Eos # (Auto) Baso # (Auto) Sodium Potassium Chloride Carbon Dioxide BUN Creatinine Estimated GFR BUN/Creatinine Ratio Glucose Calcium Magnesium Total Bilirubin AST ALT Alkaline Phosphatase Total Protein Albumin Globulin Albumin/Globulin Ratio Lipase Procalcitonin TSH Free T4 Ur Chlamydia DNA (PCR) Hepatitis A Total & IgM Nonreactive Hep Bs Antibody Nonreactive Hep B Core Total Ab Nonreactive N gonorrhoeae DNA (PCR) 02/28/19 02/28/19 03/01/19 04:25 07:30 04:55 WBC 5.0 RBC 3.40 L Hgb 11.0 L Hct 31.6 L MCV 92.9 MCH 32.3 MCHC 34.7 RDW 12.5 Plt Count 248 Neut % (Auto) 79.4 H Lymph % (Auto) 14.4 L [place] % (Auto) 5.5 Eos % (Auto) 0.1 L Baso % (Auto) 0.6 Neut # (Auto) 4000 Lymph # (Auto) 700 L [place] # (Auto) 300 Eos # (Auto) 0 Baso # (Auto) 0 Sodium Potassium Chloride Carbon Dioxide BUN Creatinine Estimated GFR BUN/Creatinine Ratio Glucose Calcium Magnesium Total Bilirubin AST ALT Alkaline Phosphatase Total Protein Albumin Globulin Albumin/Globulin Ratio Lipase 51 Procalcitonin TSH Free T4 Ur Chlamydia DNA (PCR) Not detected Hepatitis A Total & IgM Hep Bs Antibody Hep B Core Total Ab N gonorrhoeae DNA (PCR) Not detected 03/01/19 03/01/19 03/01/19 04:55 04:55 04:55 WBC RBC Hgb Hct MCV MCH MCHC RDW Plt Count Neut % (Auto) Lymph % (Auto) [place] % (Auto) Eos % (Auto) Baso % (Auto) Neut # (Auto) Lymph # (Auto) [place] # (Auto) Eos # (Auto) Baso # (Auto) Sodium 138 Potassium 3.7 Chloride 99 Carbon Dioxide 28 BUN 20 H Creatinine 0.70 Estimated GFR > 60.0 BUN/Creatinine Ratio 28.6 H Glucose 299 H Calcium 9.1 Magnesium 2.1 Total Bilirubin 0.5 AST 46 H ALT 113 H Alkaline Phosphatase 169 H Total Protein 6.3 Albumin 3.5 Globulin 2.8 Albumin/Globulin Ratio 1.3 Lipase Procalcitonin 0.99 H TSH 0.37 L Free T4 1.44 Ur Chlamydia DNA (PCR) Hepatitis A Total & IgM Hep Bs Antibody Hep B Core Total Ab N gonorrhoeae DNA (PCR) Assessment & Plan Assessment & Plan narrative: This patient has clearly been septic with left pyelonephritis. Urine cultures have revealed E coli which is sensitive to most antibiotics. She could have a perinephric abscess which might be causing these fever spikes. Her gallbladder distension could possibly represent biliary dyskinesia. In order to further evaluate that for possible later intervention I ordered a CCK HIDA scan to be done in the next day or so. Certainly I do not think her gallbladder is causing any significant clinical problem at this time.
[2019-03-01] MEDS: NYSTATIN OINTMENT 15 APPLIC/TUBE OINT...G. TOP ×3 (11:50→21:04)
[2019-03-01 12:00] VITALS: BP 130/88; PULSE 82; RESP 18; TEMP 36.8; O2SAT 99
--- NOTE | 2019-03-01 12:20 | PM.PN.1 ---
Subjective Subjective Date Patient Seen: 03/01/19 Interval history: Sarabjit Jimenes is a 29-year-old female patient with a past medical history significant for diabetes mellitus type 1, recurrent vaginal yeast infections, prior vulvar abscess, and prior fungal 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 The patient is resting at bedside and appears comfortable. She reports more left-sided flank pain today. She had no fevers overnight. She continues to have epigastric and right upper quadrant abdominal pain that is improved since yesterday. She denies headache, shortness of breath, chest pain, nausea, vomiting, fever, chills, dysuria, diarrhea or constipation. She is voiding and eliminating without difficulty. She had a moderate stool load on her CT scan and a bowel regimen has been implemented. She is up ambulating without assistance. Exam Vital Signs (past 8 hours): - 03/01/19 08:00 Temperature 97.1 F L Pulse Rate 84 Respiratory Rate 18 Blood Pressure 134/79 Pulse Oximetry 99 Oxygen Delivery Method Room Air Oxygen Flow Rate 0 Narrative Exam Narrative: General: Young female lying in bed and in no acute distress, well-developed, well-nourished, withdrawn and depressed mood but appropriately interactive. HEENT: Normocephalic, atraumatic. External ears without defect. Pupils equal, round, and reactive to light. Anicteric sclerae, moist conjunctivae, and no lid lag. Neck: Supple with full range of motion. No lymphadenopathy or thyromegaly. Cardiovascular: Regular rhythm and rate without murmurs, rubs, or gallops appreciated. Pulmonary: Clear to auscultation bilaterally without crackles, wheezes, or rhonchi. Normal respiratory effort without use of accessory muscles. Abdomen: Soft, bowel sounds present, mild tenderness to palpation in epigastrum with voluntary guarding, mild RUQ abdominal tenderness to palpation with positive [place] sign, nondistended. Left sided flank tenderness with positive Llyod's sign. No hepatosplenomegaly or masses appreciated. Genitourinary: Vulvar erythema with white discharge consistent with vaginal candidiasis. Extremities: No clubbing or cyanosis. Mild bipedal edema. Skin: Normal temperature, turgor, and texture. Neurological: Cranial nerves grossly intact. Psychiatric: Moderately depressed mood, emotional lability and flat affect. Alert and oriented to person, place, and time. Objective Labs Result Diagrams: 03/01/19 04:55 03/01/19 04:55 Labs: Laboratory Results - last 24 hr 02/26/19 02/26/19 02/26/19 09:55 09:55 09:55 WBC RBC Hgb Hct MCV MCH MCHC RDW Plt Count Neut % (Auto) Lymph % (Auto) [place] % (Auto) Eos % (Auto) Baso % (Auto) Neut # (Auto) Lymph # (Auto) [place] # (Auto) Eos # (Auto) Baso # (Auto) Sodium Potassium Chloride Carbon Dioxide BUN Creatinine Estimated GFR BUN/Creatinine Ratio Glucose Calcium Magnesium Total Bilirubin AST ALT Alkaline Phosphatase Total Protein Albumin Globulin Albumin/Globulin Ratio Procalcitonin TSH Free T4 Hepatitis A Total & IgM Nonreactive Hep Bs Antibody Nonreactive Hep B Core Total Ab Nonreactive 03/01/19 03/01/19 03/01/19 04:55 04:55 04:55 WBC 5.0 RBC 3.40 L Hgb 11.0 L Hct 31.6 L MCV 92.9 MCH 32.3 MCHC 34.7 RDW 12.5 Plt Count 248 Neut % (Auto) 79.4 H Lymph % (Auto) 14.4 L [place] % (Auto) 5.5 Eos % (Auto) 0.1 L Baso % (Auto) 0.6 Neut # (Auto) 4000 Lymph # (Auto) 700 L [place] # (Auto) 300 Eos # (Auto) 0 Baso # (Auto) 0 Sodium 138 Potassium 3.7 Chloride 99 Carbon Dioxide 28 BUN 20 H Creatinine 0.70 Estimated GFR > 60.0 BUN/Creatinine Ratio 28.6 H Glucose 299 H Calcium 9.1 Magnesium 2.1 Total Bilirubin 0.5 AST 46 H ALT 113 H Alkaline Phosphatase 169 H Total Protein 6.3 Albumin 3.5 Globulin 2.8 Albumin/Globulin Ratio 1.3 Procalcitonin 0.99 H TSH Free T4 Hepatitis A Total & IgM Hep Bs Antibody Hep B Core Total Ab 03/01/19 04:55 WBC RBC Hgb Hct MCV MCH MCHC RDW Plt Count Neut % (Auto) Lymph % (Auto) [place] % (Auto) Eos % (Auto) Baso % (Auto) Neut # (Auto) Lymph # (Auto) [place] # (Auto) Eos # (Auto) Baso # (Auto) Sodium Potassium Chloride Carbon Dioxide BUN Creatinine Estimated GFR BUN/Creatinine Ratio Glucose Calcium Magnesium Total Bilirubin AST ALT Alkaline Phosphatase Total Protein Albumin Globulin Albumin/Globulin Ratio Procalcitonin TSH 0.37 L Free T4 1.44 Hepatitis A Total & IgM Hep Bs Antibody Hep B Core Total Ab Assessment & Plan Assessment & Plan narrative: Sarabjit Jimenes is a 29-year-old female patient with a past medical history significant for diabetes mellitus type 1, recurrent vaginal yeast infections, prior vulvar abscess, and prior fungal 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 1. Acute left-sided pyelonephritis, present on admission. Active. -Patient has persistent mid epigastric with high fever. Patient also complex history of prior fungal pyelonephritis/abscess secondary to obstructive uropathy from nephrolithiasis. -CT abdomen and pelvis with and without contrast demonstrated left kidney pyelonephritis without varghese loculated abscess and enlarged retroperitoneal lymph nodes. -Previous urine culture grew pansensitive E.coli and was not treated initially as patient denied symptoms other than urinary frequency. -Discussed case with [facility] ID and recommended changing antibiotics to Zosyn to better cover abdominal organisms for possible acalculous cholecystitis. Discontinued meropenem and started Zosyn 3.375 g IV every 8 hours. -Patient has had intermittent and brief elevation of WBC. Procalcitonin trending down from 1.36 to 0.99. Continue to monitor WBC and procalcitonin daily until normalized. 2. Acute acalculous cholecystitis with isolated transaminitis, present on admission. Active. -Possibly acute acalculous cholecystitis from disease gallbladder versus reactive inflammation due PID and [id number] syndrome with painful intercourse and LFT elevation? -Patient has significant tenderness to palpation in mid epigastum with voluntary guarding and mild RUQ tenderness with positive Gómez's sign. -CT abdomen and pelvis demonstrated abnormal gallbladder with moderate pericholecystic fluid. It is noted that no pericholecystic fluid was seen on the ultrasound dated 02/26/19. -MRCP demonstrated distended gallbladder without evidence of cholelithiasis or biliary ductal dilitation. -All abdominal imaging demonstrated mild enlargement of liver consistent with fatty infiltration. -Patient had isolated transaminitis with ALT peaked to 232 and normalizing and AST peaked to 729 and normalizing. Bilirubin normal. Patient without evidence of hepatobiliary obstruction or dilatation on all imaging modalities. -Acute hepatitis panel negative. -Continue to monitor LFTs daily which are normalizing. -Continue to avoid hepatotoxic medications. -Consulted gynecology, Dr. Vegas, as below. -Consulted general surgery, Dr. Esqueda, for further evaluation and he will plan on seeing the patient tomorrow. 3. Recurrent layla vulvovaginitis with possible PID, present on admission. Active. -Chlamydia and gonorrhea were negative. -Consulted Dr. Vegas who believes PID is unlikely given exam findings, however, patient has been on broad spectrum antibiotics with meropenem for several days. -Patient is started on nystatin cream applied twice daily to labia and diflucan 100 mg daily for 7 days. -Continue broad spectrum antibiotics as above. 4. YURI, present on admission. Resolved. -Multifactorial and secondary to DKA with associated hypovolemia and UTI with now left-sided pyelonephritis. , this resolved with IV fluids. -Initial creatinine 1.0. Baseline creatinine 0.6-0.7 and quickly improved to baseline with IV fluid hydration. -Continue to monitor renal function closely. 5. Acute DKA on chronic diabetes mellitus type 1, present on admission. Acute DKA resolved. -Hemoglobin A1c >14% on 02/17/2019 reflective of poor glycemic control likely due to medical non-compliance in regard to medications and undoubtedly diet. -Patient has had multiple recurrent DKA hospitalizations with most recent 02/16 5 days priro to readmission. -Previous provider spoke with her real estate sales associate, Dr. Dominguez, who did not recommend any changes to her outpatient regimen at this time, and will try and get her in for a sooner appointment. -Initial blood glucose 616. Serum ketones 15.63. Anion Gap 33. VBG demonstrarted metabolic acidosis with respiratory compensation pH 7.05, pCO2 16, pO2 47, HCO3 5. -Chest x-ray on showed no acute infiltrates. Respiratory panel negative. Underlying sources as above. -Initiated DKA protocol with insulin gtt, fluid replacement with normal saline then transitioned to 0.45% normal saline and then D5 0.45% normal saline until blood glucose was less than 250. Monitored of blood glucose and electrolytes every 4 hours until anion gap closed and repleted as necessary. Transitioned off insulin gtt and restarted home regimen. -Continue Tresiba 40 units daily, nutritional insulin with Humalog increased from 3 to 6 units with meals and medium dose correctional scale insulin. 6. Acute anion gap metabolic acidosis, present on admission. Resolved. -VBG demonstrated metabolic acidosis with respiratory compensation: pH 7.05, pCO2 16, pO2 47, HCO3 5. -Continued to treat DKA as above and other underlying causes. 7. Medical noncompliance, present on admission. Ongoing. -Reinforced need for routine blood glucose checks, corrected insulin management and appropriate diet. -Dietitian consulted to re-educate and reinforce dietary management. Appreciate recs. -LIBRARY SCIENCE PROFESSOR consulted and could consider outpatient referral to for more intricate and interdisciplinary management. Disposition: Patient is likely to discharge home tomorrow on p.o. antibiotics if she continues to be afebrile. Quality VTE Deep Vein Thrombosis/Pulmonary Embolism Present on Admission: No
[2019-03-01] MEDS: PANTOPRAZOLE 40 MG TABLET PO (12:50)
[2019-03-01] MEDS: POLYETHYLENE GLYCOL 3350 17 GM POWD.PACK PO (12:56)
[2019-03-01] MEDS: DOCUSATE 100 MG CAPSULE PO ×2 (12:56→21:04)
[2019-03-01] MEDS: TRESIBA 40 UNIT 40 EACH SUBCUT (12:57)
--- NOTE | 2019-03-01 14:54 | CM.DPC ---
Addendum entered by Anni Rudd R.N. 03/01/19 15:20: Was able to meet with patient in her room. She had been sleeping prior, but alert and pleasant. Asked her about her primary care provider. Mentioned that her director of global marketing is at [facility], but she can't remember the name of her primary provider, but did verify it is at residency clinic. Mentioned the possibility of home health. Patient verified that she does not drive, goes out about twice a week for appointments. May need to contact residency clinic to see who patient has seen in order to attempt home health. Original Note: DCP Cont: Discussed at team rounds. According to hospitalist, Dr. Vargas, she mentioned that patient would benefit going to [facility] for management of her diabetes, as well as co-morbidities. She could also see other disciplinary members of the team, such as counselors, massotherapist as well. She would need a referral from her PCP. Patient has gone to residency clinic. Went ahead and had hospitalist sign a face to face, but not yet determined who her PCP is. Unclear at this time if patient is truly home bound, although not driving. Dr. Vargas had extensive conversation with patient, as well as her partner regarding significance of ensuring that she follows up with providers, such as endocrinology. P: DCP will continue to follow closely. Patient could potentially go home tomorrow. Could benefit with home health, but need to determine if she is truly home bound. Anni Rudd RN/Knitting Machine Operator Helper
[2019-03-01 16:00] VITALS: BP 100/56; PULSE 85; RESP 17; TEMP 36.5; O2SAT 98
[2019-03-01 19:48] VITALS: BP 104/54; PULSE 93; RESP 16; TEMP 36.8; O2SAT 99
[2019-03-01] MEDS: HEPARIN 5,000 UNIT/ML VIAL 5000 UNIT SUBCUT (21:04)
[2019-03-02 00:45] VITALS: BP 103/64; PULSE 82; RESP 18; TEMP 36.9; O2SAT 97
[2019-03-02 04:10] VITALS: BP 121/82; PULSE 74; RESP 18; TEMP 36.4; O2SAT 100
[2019-03-02] MEDS: PIPERACILLIN-TAZO 3.375 GM/50 ML FROZ.PIGGY IV ×2 (05:54→15:57)
[2019-03-02 06:19] LABS: Add Manual Diff / Slide Review NO; Basophils Absolute Auto 100 /uL (0-100); Basophils Percent Auto 0.7 % (0-2); Eosinophils Absolute Auto 0 /uL (0-450); Eosinophils Percent Auto 0.3 % (2-4); Hematocrit 30.3 % (36-46); Hemoglobin 10.4 g/dL (12.0-16.0); Lymphocytes Absolute Auto 2700 /uL (1100-4500); Lymphocytes Percent Auto 25.4 % (25-40); Mean Corpuscular HGB Conc 34.3 % (30-36); Mean Corpuscular Hemoglobin 32.1 PG (26-34); Mean Corpuscular Volume 93.5 fL (80-100); Monocytes Absolute Auto 1100 /uL (0-900); Monocytes Percent Auto 10.8 % (3-14); Neutrophils Absolute Auto 6700 /uL (1500-7000); Neutrophils Percent Auto 62.8 % (50-75); Platelet Count 298 X10^3/uL (150-400); Red Blood Cell Count 3.24 X10^6/uL (4.0-5.2); Red Cell Distribution Width 12.2 % (11.6-14.8); White Blood Cell Count 10.6 X10^3/uL (4.5-11.0)
[2019-03-02 06:28] LABS: Alanine Aminotransferase 79 IU/L (<35); Albumin 3.1 g/dL (3.5-5.0); Albumin Globulin Ratio 1.1 (1.0-2.8); Alkaline Phosphatase 136 U/L (38-126); Aspartate Aminotransferase 36 IU/L (14-36); Bilirubin Total 0.2 mg/dL (0.2-1.3); Blood Urea Nitrogen 28 mg/dL (7-17); Calcium 8.6 mg/dL (8.4-10.2); Carbon Dioxide 31 mmol/L (22-32); Chloride 102 mmol/L (98-107); Estimated Glomerular Filt Rate > 60.0 mL/min (>60); Globulin 2.7 g/dL (1.7-4.1); Glucose 177 mg/dL (70-100); HEMOLYSIS < 15 (0-50); Potassium 3.6 mmol/L (3.4-5.1); Sodium 139 mmol/L (137-145); Total Protein 5.8 g/dL (6.3-8.2)
[2019-03-02 06:44] LABS: Procalcitonin 0.62 ng/mL (<0.5)
[2019-03-02 08:34] VITALS: BP 117/72; PULSE 82; RESP 16; TEMP 36.7; O2SAT 98
[2019-03-02] MEDS: INSULIN ASPART 100 UNIT/ML INSULN PEN SUBCUT (08:51)
[2019-03-02] MEDS: INSULIN ASPART 100 UNIT/ML INSULN PEN 6 UNIT SUBCUT (08:52)
[2019-03-02] MEDS: NYSTATIN OINTMENT 15 APPLIC/TUBE OINT...G. TOP (08:55)
[2019-03-02] MEDS: HEPARIN 5,000 UNIT/ML VIAL 5000 UNIT SUBCUT (08:55)
[2019-03-02] MEDS: DOCUSATE 100 MG CAPSULE PO (08:55)
[2019-03-02] MEDS: PANTOPRAZOLE 40 MG TABLET PO (08:57)
--- NOTE | 2019-03-02 09:19 | P.DS_ITS ---
History of Present Illness History of Present Illness Date Patient Seen: 02/23/19 Chief complaint: BODY ACHE WANTS TO THROW UP Narrative: Written by David COLES: The patient is a 29-year-old female with PMH of DM Type I, migraine headaches, nephrolithiasis, irregular menses, and vitamin-D deficiency. Patient presented to the ED on 02/23/2019 out of concern for persistent nausea and epigastric discomfort. Associated symptoms include decreased food and fluid intake, malaise, and myalgia. Patient denies fever and chills. Denies URI symptoms, however has had mild intermittent cough. Denies symptoms of a UTI. Denies experiencing diarrhea, melena, or hematochezia. Denies exposure to ill contacts. Patient has had multiple recurrent hospitalizations for DKA in the past year. Most recently, a 24 hours stay with discharge on 02/17/2019. Patient does not feel that she is at her baseline health and has not been getting better since discharge on 02/17. Reports adherence with insulin regimen. Initial ED workup revealed... EKG, 02/23/2019 @ 1646. ST (v-rate 112). Non-specific T-wave abnormality. Labs, 02/23/2019 (1708) WBC 9.[address]:T 417 Na 139 K 5.0 Mg 2.4 Cl 101 Ca 10 PO4 6 CO2 5 BUN 25 Cr 1.0 BUN:Cr 25 Glu 616 sKetones 15.63 Lactate 1.2 PCT 0.11 T.Bili 0.6 AST 26 ALT36 Alk Phos 209 Alb 5.1 Serum NEGATIVE Urine (dip stick). WBC 5-10 HPF, bacteria 2-10 HPF (few) Urine Cx collected in ED, results pending Venous ABG, 02/23/19 (1700) pH 7.08 pCO2 16 pO2 47 HCO3 5 Base Excess -25 Discharge Providers Provider Date of admission: 02/23/19 18:57 Discharge Date: 03/02/19 Consults: 02/23/19 20:07 Consult to Dietitian, Adult Routine Comment: Reason For Exam: assessed at high risk 02/28/19 11:17 Consult to Physician Routine Comment: Consulting Provider: Scarlett Vegas Reason for consultation: PID? Has provider been notified: Yes 02/28/19 11:59 Consult to Physician Routine Comment: Consulting Provider: Scarlett Vegas Reason for consultation: PID Has provider been notified: Yes 02/28/19 18:53 Consult to General Surgery Routine Comment: Consulting Provider: Cricket Esqueda Reason for consultation: acalculous cholecystitis Has provider been notified: Yes Discharge provider: Susy Vargas DO Summary Hospital Course Discharge Diagnosis: 1. Acute left-sided pyelonephritis, present on admission. Resolving. 2. Acute acalculous cholecystitis with isolated transaminitis in setting of hepatic steatosis present on admission. Resolved. 3. Recurrent layla vulvovaginitis with possible PID, present on admission. Resolving. 4. YURI, present on admission. Resolved. 5. Acute DKA on chronic diabetes mellitus type 1, present on admission. Acute DKA resolved. 6. Acute anion gap metabolic acidosis, present on admission. Resolved. 7. Medical noncompliance, chronic, present on admission. Ongoing. 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 1. Acute left-sided pyelonephritis, present on admission. Resolving. -Patient has persistent mid epigastric with high fever. Patient also has complex history of prior fungal pyelonephritis/abscess secondary to obstructive uropathy from nephrolithiasis. -CT abdomen and pelvis with and without contrast demonstrated left kidney pyelonephritis without varghese loculated abscess and enlarged retroperitoneal lymph nodes. -Previous urine culture grew pansensitive E.coli and was not treated initially as patient denied symptoms other than urinary frequency. -Patient has had intermittent and brief elevation of WBC. Procalcitonin trended down to normal from 1.36 to 0.99 to 0.69. Continued to monitor WBC and procalcitonin daily. -Discussed case with [facility] ID and recommended changing antibiotics to Zosyn to better cover abdominal organisms for possible acalculous cholecystitis. Discontinued meropenem and started Zosyn 3.375 g IV every 8 hours. Discharged on Augmentin twice daily for 8 additional days to complete 14 day course due to high risk of developing renal abscess in setting of uncontrolled diabetes to the extent that her A1c is not quantifiable. 2. Acute acalculous cholecystitis with isolated transaminitis in setting of hepatic steatosis present on admission. Resolved. -Possibly acute acalculous cholecystitis from disease gallbladder versus reactive inflammation due PID and Djsr-Ruqn-Lwxdns syndrome with painful intercourse and LFT elevation? -Patient has significant tenderness to palpation in mid epigastum with voluntary guarding and mild RUQ tenderness with positive Gómez's sign. -CT abdomen and pelvis demonstrated abnormal gallbladder with moderate pericholecystic fluid. It is noted that no pericholecystic fluid was seen on the ultrasound dated 02/26/19. -MRCP demonstrated distended gallbladder without evidence of cholelithiasis or biliary ductal dilitation. -All abdominal imaging demonstrated mild enlargement of liver consistent with fatty infiltration. -Patient had isolated transaminitis with ALT peaked to 232 and normalizing and AST peaked to 729 and normalizing. Bilirubin normal. Patient without evidence of hepatobiliary obstruction or dilatation on all imaging modalities. -Acute hepatitis panel negative. -Continued to monitor LFTs daily which normalized. -Continued to avoid hepatotoxic medications. -Consulted gynecology, Dr. Vegas, as below. -Consulted general surgery, Dr. Esqueda, for further evaluation and recommended HIDA scan to assess gallbladder function. HIDA scan demonstrated normal gallbladder function. 3. Recurrent layla vulvovaginitis with possible PID, present on admission. Resolving. -Chlamydia and gonorrhea were negative. -Consulted Dr. Vegas who believes PID is unlikely given exam findings, however, patient has been on broad spectrum antibiotics with meropenem for several days. -Patient is started on nystatin cream applied three times daily to labia and diflucan 100 mg daily for 7 days. -Continued broad spectrum antibiotics as above. 4. YURI, present on admission. Resolved. -Multifactorial and secondary to DKA with associated hypovolemia and UTI with now left-sided pyelonephritis resolved with IV fluids. -Initial creatinine 1.0. Baseline creatinine 0.6-0.7 and quickly improved to baseline with IV fluid hydration. -Continue to monitor renal function closely. 5. Acute DKA on chronic diabetes mellitus type 1, present on admission. Acute DKA resolved. -Hemoglobin A1c >14% on 02/17/2019 reflective of poor glycemic control likely due to medical non-compliance in regard to medications and undoubtedly diet. -Patient has had multiple recurrent DKA hospitalizations with most recent 02/16 5 days prior to readmission. -Previous provider spoke with her instrumental teacher, Dr. Dominguez, who did not recommend any changes to her outpatient regimen at this time, and will see her on 03/03/2019. -Initial blood glucose 616. Serum ketones 15.63. Anion Gap 33. VBG demonstrarted metabolic acidosis with respiratory compensation pH 7.05, pCO2 16, pO2 47, HCO3 5. -Chest x-ray on showed no acute infiltrates. Respiratory panel negative. Continued to treat underlying sources as above. -Initiated DKA protocol with insulin gtt, fluid replacement with normal saline then transitioned to 0.45% normal saline and then D5 0.45% normal saline until blood glucose was less than 250. Monitored of blood glucose and electrolytes every 4 hours until anion gap closed and repleted as necessary. Transitioned off insulin gtt and restarted home regimen. -Continued Tresiba 40 units daily, nutritional insulin with Humalog increased from 3 to 6 units with meals and medium dose correctional scale insulin. -Reinforced need for routine blood glucose checks, corrected insulin management and appropriate diet. Recommended food journal and glucose logs. -Dietitian consulted to re-educate and reinforce dietary management. Appreciate recs. Recommend outpatient referral to DSME (diabetic self-management ed ucation) either at [facility]. -GRANULATOR TENDER consulted for community resources for mental health, estate manager, and for outpatient medical follow-up and resources provided. Recommend outpatient referral to for more intricate and interdisciplinary management of diabetes including internal Medicine, Endocrinology, dietitian, diabetic Education, Psychiatry, and Psychology. 6. Acute anion gap metabolic acidosis, present on admission. Resolved. -VBG demonstrated metabolic acidosis with respiratory compensation: pH 7.05, pCO2 16, pO2 47, HCO3 5. -Continued to treat DKA as above and other underlying causes. 7. Medical noncompliance, chronic, present on admission. Ongoing. -Reinforced need for routine blood glucose checks, corrected insulin management and appropriate diet. -Dietitian consulted to re-educate and reinforce dietary management. Appreciate recs. Recommend outpatient referral to DSME (diabetic self-management education) either at [facility] or [facility]. -GRANULATOR TENDER consulted for community resources for mental health, estate manager, and for outpatient medical follow-up and resources provided. Recommend outpatient referral to for more intricate and interdisciplinary management of diabetes including internal Medicine, Endocrinology, dietitian, diabetic Education, Psychiatry, and Psychology. Exam Vital Signs (past 8 hours): - 03/02/19 04:10 03/02/19 08:34 Temperature 97.5 F L 98.1 F Pulse Rate 74 82 Respiratory Rate 18 16 Blood Pressure 121/82 117/72 Pulse Oximetry 100 98 Oxygen Delivery Method Room Air Oxygen Flow Rate 0 Narrative Exam Narrative: General: Young female lying in bed and in no acute distress, well-developed, well-nourished, withdrawn and depressed mood but appropriately interactive. HEENT: Normocephalic, atraumatic. External ears without defect. Pupils equal, round, and reactive to light. Anicteric sclerae, moist conjunctivae, and no lid lag. Neck: Supple with full range of motion. No lymphadenopathy or thyromegaly. Cardiovascular: Regular rhythm and rate without murmurs, rubs, or gallops appreciated. Pulmonary: Clear to auscultation bilaterally without crackles, wheezes, or rhonchi. Normal respiratory effort without use of accessory muscles. Abdomen: Soft, bowel sounds present, mild tenderness in epigastrium significantly improved, nondistended. Left sided flank tenderness with positive Llyod's sign improved. No hepatosplenomegaly or masses appreciated. Genitourinary: Vulvar erythema with white discharge consistent with vaginal candidiasis. Extremities: No clubbing or cyanosis. Mild bipedal edema. Skin: Normal temperature, turgor, and texture. Neurological: Cranial nerves grossly intact. Psychiatric: Moderately depressed mood, emotional lability and flat affect. A lert and oriented to person, place, and time. Objective Labs Result Diagrams: 03/02/19 06:05 03/02/19 06:05 Labs: Laboratory Results - last 24 hr 03/02/19 03/02/19 03/02/19 06:05 06:05 06:05 WBC 10.6 D RBC 3.24 L Hgb 10.4 L Hct 30.3 L MCV 93.5 MCH 32.1 MCHC 34.3 RDW 12.2 Plt Count 298 Neut % (Auto) 62.8 Lymph % (Auto) 25.4 [place] % (Auto) 10.8 Eos % (Auto) 0.3 L Baso % (Auto) 0.7 Neut # (Auto) 6700 Lymph # (Auto) 2700 [place] # (Auto) 1100 H Eos # (Auto) 0 Baso # (Auto) 100 Sodium 139 Potassium 3.6 Chloride 102 Carbon Dioxide 31 BUN 28 H Creatinine 0.80 Estimated GFR > 60.0 BUN/Creatinine Ratio 35.0 H Glucose 177 H D Calcium 8.6 Total Bilirubin 0.2 AST 36 ALT 79 H Alkaline Phosphatase 136 H Total Protein 5.8 L Albumin 3.1 L Globulin 2.7 Albumin/Globulin Ratio 1.1 Procalcitonin 0.62 H Discharge Plan Discharge Plan Patient Disposition: Home Health Service Discharge comment: You are being discharged home. Please follow-up with your instrumental teacher, Dr. Dominguez, at your scheduled appointment tomorrow. Please follow-up with your PCP, Dr. Culp, as soon as possible regarding your hospitalization and referral to for interdisciplinary care (Internal Medicine, Endocrinology, Senior Trial Attorney, Dietitian, Psychiatrist, and Psychologist) and referral to diabetic Education at [facility]. The triage nurse should be calling you from the residency Clinic to schedule this, however, if you do not hear from them in the next 1-2 days please call and schedule an appointment. You have been prescribed Augmentin twice daily for the next 8 days to treat your kidney infection, Diflucan 100 mg daily and nystatin cream applied to labia 3 times daily for 4 additional days to treat your vaginal infection. Please take a probiotic 3 times daily with meals for the next 2 weeks. Please watch for signs of infection including fever, chills, nausea, vomiting, worsening flank pain. Discharge Med Rec/Prescriptions Prescriptions: New amoxicillin-pot clavulanate [Augmentin] 875-125 mg tablet 1 tab PO BID Qty: 16 RF: 0 fluconazole [Diflucan] 100 mg tablet 100 mg PO DAILY Qty: 4 RF: 0 Bacid 1 billion cell- 250 mg Tablet 1 ea PO TIDWM Qty: 42 RF: 0 nystatin 100,000 unit/gram Ointment 1 applic topical TID Qty: 15 RF: 0 Continued Tresiba FlexTouch U-100 100 unit/mL (3 mL) Insulin Pen 40 unit Sub-Q DAILY Qty: 15 RF: 2 glucose 4 gram tablet,chewable 4 gram PO Q15M PRN (Reason: hypoglycemia) Qty: 30 RF: 0 Glucagon Emergency Kit (human) 1 mg recon soln 1 mg subcut DIRECTED RF: 0 ergocalciferol (vitamin D2) [Vitamin D2] 50,000 unit capsule 50,000 unit PO QWEEK RF: 0 norethindrone (contraceptive) [[place]] 0.35 mg Tablet 0.35 mg PO DAILY RF: 0 cholecalciferol (vitamin D3) [Vitamin D3] 2,000 unit Capsule 2,000 unit PO DAILY RF: 0 insulin lispro [Humalog KwikPen Insulin] 100 unit/mL insulin pen 0 unit SUBCUT TID RF: 0 Provider Discharge Instructions Diet: Diet as Tolerated Activity: Activity as tolerated Visit Report/Discharge Packet Instructions: The Mediterranean Diet and Good Health, Low-Carbohydrate Diet (Alternative Therapy), DI for Kidney Infection, DI for Vaginal Yeast Infection, DI for Diabetes Type 1 -- Adult Discharges patient from system. Discharge Date/Time: 03/02/19 17:00 Quality VTE Deep Vein Thrombosis/Pulmonary Embolism Present on Admission: No
--- NOTE | 2019-03-02 09:20 | CM.DPC ---
Addendum entered by RAYMOND Roman 03/02/19 12:02: ADD: SW met bedside with pt and explained role and pt confirms she is aware of her endocrinology appt tomorrow and states she hasn't been called by [facility] yet to schedule f/u appt yet but SW informed her they plan to call her sometime today to schedule her in the next couple days. SW inquired if pt has ever received Mental Health counseling or support and pt denies any hx of MH services. Pt confirmed that with her dx and the impacts to her daily living that she feels emotions ranging from depression/anger/frustration and is very agreeable with mental health support. SW provided her with the Medicaid Access to MH number along with the list of local agencies and explained to call the access line first. Pt states she is very hopeful to d/c home today and that her mom is available to transport her as nina was here all night and is now at work. RAYMOND Roman Addendum entered by RAYMOND Roman 03/02/19 10:16: ADD: Pt already scheduled for follow up with her [facility] Newspaper Peddler tomorrow 03/03/19 with check in time of 1605. BF Original Note: DCP Cont: Per MD, pt likely will be stable for d/c home today and requiring very close follow up with her outpt providers and requesting SW support with scheduling f/u appointment with PCP and referral to for endocrinology and interdisciplinary treatment due to pt's poorly controlled diabetes and ongoing admissions for ongoing increased medical issues. ARTHUR called [facility] and confirmed that pt's PCP is Dr. Culp and SW requested urgent f/u appointment be made for the pt after her likely d/c today. Intake staff stated next available appointment is not until 03/16/19 therefore they will need to have the residential recycle driver call pt today to have pt scheduled for an urgent f/u appointment within likely 3 days to be seen for follow up. ARTHUR also inquired about how to initiate a referral from their office for endocrinology and interdisciplinary and staff stated that typically a pt needs to been seen by MD first before referral can be made but that if [facility] can fax the d/c summary to their office today ([phone]) then they can likely begin the referral process before seeing the pt. ARTHUR faxed Elo HOFF the new referral and signed F2F for LUIS EDUARDO RN/APPAREL FASHION DESIGNER. ARTHUR updated MD. Plan: ARTHUR to follow closely for faxing d/c summary to [facility] to review to begin the referral to and providing pt with the medicaid access to mental health number to get set up with outpt therapy support. Salud Poe MSW
[2019-03-02] MEDS: FLUCONAZOLE 100 MG TABLET PO (10:19)
[2019-03-02 12:00] VITALS: BP 100/51; PULSE 84; RESP 17; TEMP 36.5; O2SAT 97
[2019-03-02] MEDS: TRESIBA 40 UNIT 40 EACH SUBCUT (13:01)
--- NOTE | 2019-03-02 13:30 | DIET.PN ---
Dietary Progress Note Assessment: Met with Ms. Jimenes for dietary f/u today regarding diabetes care. She was much more alert and attentive at this visit. We further discussed a plan for outpatient diabetes care. She seems more cooperative with this idea. We discussed who would be helping her with management. She reports her fiance helps her, but he works a lot and is often unable to attend appointments with her. We discussed the possibility of an outpatient program through [facility] since she is already seeing her address change clerk with them. We also discussed the option of diabetes education through as it is closer. She appeared open to either option. I spoke with Dr. Vargas, who has also spent a great deal with this patient, regarding her future care. She discussed the option of sending her to for care as there are many other complications affecting this patients health. Labs: Gluc: 51-356 (02/27-03/02) AST: 36 ALT: 79 Interventions: 1. Recommend Out patient diabetes education through or [facility] to discuss dietary needs as well as insulin protocol. Monitoring/Evaluations: F/U with DSME referral for outpatient therapy.
[2019-03-02 16:04] VITALS: BP 116/76; PULSE 92; RESP 18; TEMP 36.3; O2SAT 98
--- NOTE | 2019-03-02 17:04 | PC.NURSE ---
Discharge note: Pt given last dose of iv zosyn per MD's request. Midline removed without incident and covered with gauze and koban per pt's request. Discharge instructions given on several topics, including medication (last and next doses also reported), diet, activity, stroke and follow up appointments as well as s and s for worsening illness. Discussed ways to make changes towards better diabetes management incrementally, as well as Dr. Vargas's suggestion to use a journal to keep track of diet, blood glucose and mood. Pt discharged with mother to private vehicle without incident.
--- NOTE | 2019-03-03 14:46 | CM.DPC ---
DCP Cont: Faxed discharge summary to [facility] at fax # [phone] and to the [facility], Attn: Dr. Culp at fax # [phone]. Fax confirmation scanned in. Mary Clayton, Care Launch Engineer
== END 2019-03-02 17:00 | disposition home health service (06) | DRG 638 ==
LOC: ED 18:03 → AC 18:58 → ICU 19:41
PROVIDERS: Emergency Medicine; Internal Medicine; Nurse Practitioner Gerontology; Admitting Provider Internal Medicine; Emergency Provider Emergency Medicine; Visit Provider Internal Medicine
DX: E10.10 Type 1 diabetes mellitus with ketoacidosis without coma (principal); N17.9 Acute kidney failure, unspecified; N10 Acute pyelonephritis; K81.0 Acute cholecystitis; Z79.4 Long term (current) use of insulin; B96.20 Unspecified Escherichia coli [E. coli] as the cause of diseases classified elsewhere; B37.3 Candidiasis of vulva and vagina; Z91.14 Patient's other noncompliance with medication regimen
CPT/HCPCS: 36415; 36592; 36600; 71045; 71260; 74176; 74177; 74181; 76705; 76830; 76856; 78227; 80048; 80053; 80076; 80305; 81003; 81015; 82009; 82550; 82805; 82962; 83605; 83690; 83735; 84100; 84145; 84439; 84443; 84484; 84703; 85025; 86704; 86706; 86803; 87040; 87077; 87086; 87102; 87186; 87340; 87491; 87591; 87633; 87797; 93005; 93010; 94762; 96361; 96374; 96375; 99232; 99283; 99291; A9537; J1170; J1200; J1642; J1644; J2405; J2543; J2805; J2930; J3480; Q9967

== ENCOUNTER 2019-03-08 13:01 | Inpatient (IN) | payer MEDICAID, SELFPAY ==
[2019-02-23 19:59] VITALS: BMI 18.8
[2019-03-08] VITALS (10 sets, daily range): BP systolic 104–155; BP diastolic 45–100; PULSE 100–135; RESP 10–30; TEMP 36.6–37.7; O2SAT 98–100; BMI 19.3
--- NOTE | 2019-03-08 13:19 | DI.RAD.S_ITS ---
PROCEDURE: XR CHEST 1V INDICATIONS: Diabetic ketoacidosis TECHNIQUE: One view of the chest was acquired. COMPARISON: [facility], CR, XR CHEST 1V, 02/27/2019, 11:31. FINDINGS: Surgical changes and devices: None. Lungs and pleura: Lungs are clear. No pleural effusions or pneumothorax. Mediastinum: Mediastinal contours appear normal. Heart size is normal. Bones and chest wall: No suspicious bony lesions. Overlying soft tissues appear unremarkable. IMPRESSION: Negative chest. No acute cardiopulmonary process is evident. Dictated by: Ken Underwood M.D. on 03/08/2019 at 12:51 Approved by: Ken Underwood M.D. on 03/08/2019 at 12:52
--- NOTE | 2019-03-08 13:24 | ED.WEAKNESS ---
HPI - Weakness General Chief complaint: Diabetic Problem Stated complaint: Left Side Kidney pain, Severe, Diabetic Time Seen by Provider: 03/08/19 13:05 Source: patient and family Mode of arrival: Ambulatory Limitations: no limitations History of Present Illness HPI Narrative: 29-year-old female nonsmoker with frequent admissions for DKA presents with her family and a chief complaint of worsening left flank pain fever, shaking chills rapid shallow breathing and nausea over the past few days. She was most recently admitted for DKA and had been in the hospital for about 1 week and was discharged on the . She states that she has been following her medication guidelines to the best of her ability. She is still taking antibiotics as her apparent precipitating event was pyelonephritis for the last admission. She was discharged on Augmentin Complaint: generalized weakness Onset (ago): day(s) Duration: constant Location: generalized Relieving factors: none Exacerbating factors: none Context: recent illness Associated symptoms: dysuria, fever/chills, headaches, loss of appetite and nausea/vomiting Related Data Home Medications Medication Instructions Recorded Confirmed Glucagon Emergency Kit (human) 1 mg SUBCUT DIRECTED 02/16/19 02/23/19 cholecalciferol (vitamin D3) 2,000 unit PO DAILY 02/16/19 02/23/19 [Vitamin D3] ergocalciferol (vitamin D2) 50,000 unit PO QWEEK 02/16/19 02/23/19 [Vitamin D2] insulin lispro [Humalog KwikPen 0 unit SUBCUT TID 02/16/19 02/23/19 Insulin] norethindrone (contraceptive) 0.35 mg PO DAILY 02/16/19 02/23/19 [[place]] Previous Rx's Medication Instructions Recorded Tresiba FlexTouch U-100 40 unit SUB-Q DAILY #15 ml 12/12/18 glucose 4 gram PO Q15M PRN #30 tab 12/12/18 L.acidoph-LMehdibulg-B.bif-S.therm 1 ea PO TIDWM #42 tab 03/02/19 [Bacid] amoxicillin-pot clavulanate 1 tab PO BID #16 tab 03/02/19 [Augmentin] fluconazole [Diflucan] 100 mg PO DAILY #4 tab 03/02/19 nystatin 1 applic TOPICAL TID #15 gram 03/02/19 Allergies Allergy/AdvReac Type Severity Reaction Status Date / Time arredondo [ARREDONDO] Allergy Intermediate Hives, Verified 02/24/19 08:00 pruritus iodine [IODINE] Allergy Intermediate rash, itchy Verified 02/24/19 08:00 morphine Allergy Intermediate Difficulty Verified 02/24/19 08:00 Breathing shellfish derived Allergy Intermediate rash Verified 02/24/19 08:00 [SHELLFISH DERIVED] adhesive [ADHESIVE] Allergy Unknown tape Verified 02/24/19 08:00 latex [LATEX] Allergy Unknown Hives Verified 02/24/19 08:00 Review of Systems Constitutional Constitutional: Denies chills, Denies fatigue, Denies fever(s), Denies frequent falls, Denies lethargy and Denies weakness Eyes Eyes: Denies change in vision, Denies eye discharge, Denies irritation and Denies loss of vision ENT Ears, Nose, Mouth, and Throat: Denies change in voice, Denies dizziness, Denies neck pain, Denies sore throat and Denies throat swelling Cardiovascular Cardiovascular: Denies chest pain, Denies irregular heart rhythm, Denies lightheadedness, Denies palpitations, Denies dyspnea, Denies dyspnea on exertion and Denies orthopnea Respiratory Respiratory: Denies cough, Denies dyspnea, Denies dyspnea on exertion and Denies wheezing Gastrointestinal Gastrointestinal: Denies abdominal pain, Denies change in bowel habits, Denies diarrhea, Denies nausea and Denies vomiting Genitourinary Genitourinary: Denies hematuria, Denies flank pain, Denies urinary incontinence and Denies urinary urgency Musculoskeletal Musculoskeletal: Denies back pain, Denies muscle weakness, Denies neck pain, Denies numbness and Denies tingling Integumentary/Breasts Skin/Breast: Denies pruritus, Denies erythema, Denies rash and Denies wounds Neurologic Neurologic: Denies behavioral changes, Denies confusion, Denies dizziness, Denies frequent falls, Denies loss of vision, Denies numbness, Denies tingling and Denies weakness Psychiatric Psychiatric: Denies anxiety, Denies behavioral changes, Denies confusion, Denies depression, Denies homicidal ideation and Denies suicidal ideation Endocrine Endocrine: Denies fatigue, Denies flushing and Denies palpitations Hematologic/Lymphatic Hematologic/Lymphatic: Denies easy bruising Allergic/Immunologic Allergic/Immunologic: Denies urticaria, Denies throat swelling and Denies wheezing Patient History Medical History DKA (diabetic ketoacidoses) (Resolved) History of pyelonephritis (Resolved) Irregular menstrual cycle (Acute) Migraine headache (Chronic) Nephrolithiasis (Resolved) Type 1 diabetes mellitus (Chronic) Surgical History History of ureter stent (Resolved) Status post laser lithotripsy of ureteral calculus (Acute) [place] teeth extracted (Acute) Family History Father In good health Mother Cardiac disease Social History details: Engaged household members: significant other and family Smoking Status: Never smoker alcohol intake: never alcohol intake frequency: holidays/special occasions only Substance Use Type: does not use Exam Narrative Exam Narrative: GENERAL: [29] year old patient appears stated age. In obvious distress, crying, rubbing her left flank HEAD: Atraumatic. Normocephalic. EYES: Pupils equal round and reactive. Extraocular motions intact. No scleral icterus. No injection or drainage. ENT: Dry mucous membranes Nose without bleeding, purulent drainage. Throat without erythema, tonsillar hypertrophy or exudate. Airway patent. NECK: Trachea midline. Non tender CARDIOVASCULAR: Regular rate and rhythm without murmurs, gallops, or rubs. RESPIRATORY: Clear to auscultation. Breath sounds equal bilaterally. No wheezes, rales, or rhonchi. GASTROINTESTINAL: Abdomen soft, non-tender, nondistended. EXTREMITIES: No edema or joint tenderness. BACK: No left flank tenderness to palpation NEURO: AOx3. SKIN: No rash or erythema of visible areas Initial Vital Signs Initial Vital Signs: Vital Signs Pulse Rate 131 H 03/08/19 13:19 Respiratory Rate 30 H 03/08/19 13:19 Blood Pressure 125/73 03/08/19 13:19 Pulse Oximetry 100 03/08/19 13:19 Course Orders Ordered: ED Orders 03/08/19 13:19 XR chest 1V Stat Blood Culture Stat EKG-12 Lead Stat 03/08/19 13:32 Complete Blood Count AUTO DIFF Stat Comprehensive Metabolic Panel Stat Ketones (Beta-Hydroxybutyrate) Stat Lactate (Lactic Acid) Stat Procalcitonin Stat 03/08/19 13:41 Venous Blood Gas Stat Insulin Human Regular 100 unit (/ Sodium Chloride) 100 mls @ 6 mls/hr IV TITRATE BLAISE; Protocol Discontinued Medications Hydromorphone HCl (Dilaudid) 0.5 mg IV NOW ONE Stop: 03/08/19 13:19 Last Admin: 03/08/19 13:42 Dose: 0.5 mg Documented by: BELKYS Sodium Chloride (Normal Saline 0.9%) 1,000 mls @ 1,000 mls/hr IV BOLUS ONE Stop: 03/08/19 14:17 Last Admin: 03/08/19 13:42 Dose: 1,000 mls/hr Documented by: BELKYS Metoclopramide HCl (Reglan) 10 mg IV NOW ONE Stop: 03/08/19 13:19 Last Admin: 03/08/19 13:42 Dose: 10 mg Documented by: BELKYS Vital Signs Vital signs: Vital Signs - 8 hr 03/08/19 13:19 Pulse Rate 131 H Respiratory Rate 30 H Blood Pressure 125/73 Pulse Oximetry 100 MDM - Weakness Lab Data Result diagrams: 03/08/19 13:32 03/08/19 13:32 Labs: Lab Results 03/08/19 03/08/19 03/08/19 Range/Units 13:32 13:32 13:32 WBC 20.9 H (4.5-11.0) X10^3/uL RBC 4.27 (4.0-5.2) X10^6/uL Hgb 13.6 (12.0-16.0) g/dL Hct 42.3 (36-46) % MCV 99.1 D (80-100) fL MCH 31.9 (26-34) PG MCHC 32.2 (30-36) % RDW 13.4 (11.6-14.8) % Plt Count 1025 H* (150-400) X10^3/uL Neut % (Auto) 74.2 (50-75) % Lymph % (Auto) 20.0 L (25-40) % [place] % (Auto) 4.6 (3-14) % Eos % (Auto) 0.1 L (2-4) % Baso % (Auto) 1.1 (0-2) % Neut # (Auto) 10284 H (9882-1933) /uL Lymph # (Auto) 4200 (8630-9813) /uL [place] # (Auto) 1000 H (0-900) /uL Eos # (Auto) 0 (0-450) /uL Baso # (Auto) 200 H (0-100) /uL RBC Morphology Normal morphology VBG pH (7.33-7.43) VBG pCO2 (45-50) mmHg VBG pO2 (35-45) mmHg VBG HCO3 (23-28) mmol/L VBG Total CO2 (24-29) mmol/L VBG O2 Saturation (70-75) % VBG Base Excess (0-4) mmol/L Sodium 138 (137-145) mmol/L Potassium 4.8 D (3.4-5.1) mmol/L Chloride 100 (98-107) mmol/L Carbon Dioxide < 5 L* (22-32) mmol/L BUN 22 H (7-17) mg/dL Creatinine 1.20 H (0.52-1.04) mg/dL Estimated GFR 53.9 L (>60) mL/min BUN/Creatinine Ratio 18.3 (6-22) Glucose 614 H* D (70-100) mg/dL Lactate (0.7-2.1) mmol/L Calcium 9.7 (8.4-10.2) mg/dL Total Bilirubin 0.5 (0.2-1.3) mg/dL AST 25 (14-36) IU/L ALT 38 H (<35) IU/L Alkaline Phosphatase 240 H D (38-126) U/L Total Protein 9.0 H (6.3-8.2) g/dL Albumin 5.0 (3.5-5.0) g/dL Globulin 4.0 (1.7-4.1) g/dL Albumin/Globulin Ratio 1.3 (1.0-2.8) Procalcitonin 0.23 (<0.5) ng/mL Ketones 16.0 H (<0.27) mmol/L 03/08/19 03/08/19 Range/Units 13:32 13:41 WBC (4.5-11.0) X10^3/uL RBC (4.0-5.2) X10^6/uL Hgb (12.0-16.0) g/dL Hct (36-46) % MCV (80-100) fL MCH (26-34) PG MCHC (30-36) % RDW (11.6-14.8) % Plt Count (150-400) X10^3/uL Neut % (Auto) (50-75) % Lymph % (Auto) (25-40) % [place] % (Auto) (3-14) % Eos % (Auto) (2-4) % Baso % (Auto) (0-2) % Neut # (Auto) (2384-3939) /uL Lymph # (Auto) (1701-4853) /uL [place] # (Auto) (0-900) /uL Eos # (Auto) (0-450) /uL Baso # (Auto) (0-100) /uL RBC Morphology VBG pH 6.94 L* (7.33-7.43) VBG pCO2 17.6 L (45-50) mmHg VBG pO2 47 H (35-45) mmHg VBG HCO3 4 L (23-28) mmol/L VBG Total CO2 < 5 L (24-29) mmol/L VBG O2 Saturation 57 L (70-75) % VBG Base Excess -29.0 L (0-4) mmol/L Sodium (137-145) mmol/L Potassium (3.4-5.1) mmol/L Chloride (98-107) mmol/L Carbon Dioxide (22-32) mmol/L BUN (7-17) mg/dL Creatinine (0.52-1.04) mg/dL Estimated GFR (>60) mL/min BUN/Creatinine Ratio (6-22) Glucose (70-100) mg/dL Lactate 1.9 (0.7-2.1) mmol/L Calcium (8.4-10.2) mg/dL Total Bilirubin (0.2-1.3) mg/dL AST (14-36) IU/L ALT (<35) IU/L Alkaline Phosphatase (38-126) U/L Total Protein (6.3-8.2) g/dL Albumin (3.5-5.0) g/dL Globulin (1.7-4.1) g/dL Albumin/Globulin Ratio (1.0-2.8) Procalcitonin (<0.5) ng/mL Ketones (<0.27) mmol/L Critical Care Time Critical Care Time Critical Care Time: Yes Total Critical Care Time: 30 Attestation: The high probability of a clinically significant, sudden or life threatening deterioration of the [CV/] system(s) required my full and direct attention, intervention and personal management. The aggregate critical care time was [] minutes. This time is in addition to time spent performing reported procedures but includes the following: [x] Data Review and interpretation [x] Patient assessment and monitoring of vital signs [x] Documentation [x] Medication orders and management Discharge Plan Departure Admit Date/Time: 03/08/19 14:49 Admit Provider: Gale Arita
[2019-03-08] MEDS: SODIUM CHLORIDE 0.9% 1,000 ML 1000 ML IV (13:42)
[2019-03-08] MEDS: METOCLOPRAMIDE 10 MG/2 ML INJ IV (13:42)
[2019-03-08] MEDS: HYDROMORPHONE 0.5 MG INJ IV ×3 (13:42→21:14)
[2019-03-08 13:56] LABS: HCO3 VBG 4 mmol/L (23-28); Oxygen Saturation VBG 57 % (70-75); PCO2 VBG 17.6 mmHg (45-50); PO2 VBG 47 mmHg (35-45); Total CO2 VBG < 5 mmol/L (24-29)
[2019-03-08 13:57] LABS: pH VBG 6.94 (7.33-7.43)
[2019-03-08 14:09] LABS: Lactate (Lactic Acid) 1.9 mmol/L (0.7-2.1)
[2019-03-08 14:12] LABS: Add Manual Diff / Slide Review NO; Basophils Absolute Auto 200 /uL (0-100); Basophils Percent Auto 1.1 % (0-2); Eosinophils Absolute Auto 0 /uL (0-450); Eosinophils Percent Auto 0.1 % (2-4); Hematocrit 42.3 % (36-46); Hemoglobin 13.6 g/dL (12.0-16.0); Lymphocytes Absolute Auto 4200 /uL (1100-4500); Mean Corpuscular HGB Conc 32.2 % (30-36); Mean Corpuscular Hemoglobin 31.9 PG (26-34); Mean Corpuscular Volume 99.1 fL (80-100); Monocytes Absolute Auto 1000 /uL (0-900); Monocytes Percent Auto 4.6 % (3-14); Neutrophils Absolute Auto 15500 /uL (1500-7000); Neutrophils Percent Auto 74.2 % (50-75); Red Blood Cell Count 4.27 X10^6/uL (4.0-5.2); Red Cell Distribution Width 13.4 % (11.6-14.8); White Blood Cell Count 20.9 X10^3/uL (4.5-11.0)
[2019-03-08 14:15] LABS: Alanine Aminotransferase 38 IU/L (<35); Albumin Globulin Ratio 1.3 (1.0-2.8); Alkaline Phosphatase 240 U/L (38-126); Aspartate Aminotransferase 25 IU/L (14-36); BUN Creatinine Ratio 18.3 (6-22); Bilirubin Total 0.5 mg/dL (0.2-1.3); Blood Urea Nitrogen 22 mg/dL (7-17); Calcium 9.7 mg/dL (8.4-10.2); Chloride 100 mmol/L (98-107); Estimated Glomerular Filt Rate 53.9 mL/min (>60); HEMOLYSIS 19 (0-50); Potassium 4.8 mmol/L (3.4-5.1); Sodium 138 mmol/L (137-145)
[2019-03-08 14:44] LABS: Glucose 614 mg/dL (70-100)
[2019-03-08 14:45] LABS: Carbon Dioxide < 5 mmol/L (22-32)
[2019-03-08 14:47] LABS: Platelet Count 1025 X10^3/uL (150-400)
[2019-03-08 14:48] LABS: RBC Morphology Normal Morphology
--- NOTE | 2019-03-08 14:49 | PC.NURSE ---
[facility] called for PICC placement for better access, unknown ETA at this time.
[2019-03-08 14:51] LABS: Procalcitonin 0.23 ng/mL (<0.5)
[2019-03-08] MEDS: INSULIN REGULAR, HUMAN 100 UNIT in SODIUM CHLORIDE 0.9% 100 ML 6 ML IV (14:57)
--- NOTE | 2019-03-08 17:16 | PM.HP.1 ---
History of Present Illness History of Present Illness Date Patient Seen: 03/08/19 Chief complaint: Left Side Kidney pain, Severe, Diabetic Narrative: The patient is a 29-year-old female with a history of type 1 diabetes, migraine headaches, nephrolithiasis, irregular menses, vitamin-D deficiency who was discharged from the hospital l 1 week ago after treatment for pyelonephritis. The patient was found to have pansensitive E coli and initially was treated with Zosyn, she was switched to Augmentin and was discharged home. She has taken her Augmentin and have 2 additional tablets to take. During that admission she was also found to have acute acalculous cholecystitis, she had isolated transaminitis with hepatic steatosis on admission that resolved. She has a history of recurrent vulvovaginitis, there was some concern regarding PID which appears to be ruled out. She also had DKA on that admission with associated YURI and anion gap metabolic acidosis. Patient reports she was well until this morning when she woke up with severe left flank pain. She reports taking her insulin as directed in addition to her other medications. She presented to the emergency room for evaluation. In the emergency room the patient was found to be markedly acidotic with a pH of 6.9 her pCO2 was 17, blood sugar was elevated at 614. Patient was admitted to the hospital for DKA. The patient received 1 dose of Dilaudid in the emergency room. She reports no flank pain at this time. She also reports no dysuria hematuria or pyuria. She has not urinated since she arrived to the floor. She is markedly tachycardic with heart rate of 143. She is getting IV hydration at this time. The patient states she followed up with Endocrinology as an outpatient and has had her insulin adjusted to include 43 units of triseba daily in addition to her sliding scale of insulin. Patient History Medical History DKA (diabetic ketoacidoses) (Resolved) History of pyelonephritis (Resolved) Irregular menstrual cycle (Acute) Migraine headache (Chronic) Nephrolithiasis (Resolved) Type 1 diabetes mellitus (Chronic) Surgical History History of ureter stent (Resolved) Status post laser lithotripsy of ureteral calculus (Acute) [place] teeth extracted (Acute) Family & Social History Family History Father In good health Mother Cardiac disease Social History: household members significant other,family Tobacco & Substance use: Smoking Status Never smoker alcohol intake never alcohol intake frequency holiday/special occasion Substance Use Type does not use Meds Home Medications and Allergies Home Medications Medication Instructions Recorded Confirmed Type Tresiba FlexTouch U-100 40 unit SUB-Q DAILY #15 ml 12/12/18 02/16/19 Rx glucose 4 gram PO Q15M PRN #30 tab 12/12/18 02/23/19 Rx Glucagon Emergency Kit (human) 1 mg SUBCUT DIRECTED 02/16/19 02/23/19 History cholecalciferol (vitamin D3) 2,000 unit PO DAILY 02/16/19 02/23/19 History [Vitamin D3] ergocalciferol (vitamin D2) 50,000 unit PO QWEEK 02/16/19 02/23/19 History [Vitamin D2] insulin lispro [Humalog KwikPen 0 unit SUBCUT TID 02/16/19 02/23/19 History Insulin] norethindrone (contraceptive) 0.35 mg PO DAILY 02/16/19 02/23/19 History [[place]] L.acidoph-L.bulg-B.bif-S.therm 1 ea PO TIDWM #42 tab 03/02/19 Rx [Bacid] amoxicillin-pot clavulanate 1 tab PO BID #16 tab 03/02/19 Rx [Augmentin] fluconazole [Diflucan] 100 mg PO DAILY #4 tab 03/02/19 Rx nystatin 1 applic TOPICAL TID #15 gram 03/02/19 Rx Allergies Allergy/AdvReac Type Severity Reaction Status Date / Time arredondo [ARREDONDO] Allergy Intermediate Hives, Verified 02/24/19 08:00 pruritus iodine [IODINE] Allergy Intermediate rash, itchy Verified 02/24/19 08:00 morphine Allergy Intermediate Difficulty Verified 02/24/19 08:00 Breathing shellfish derived Allergy Intermediate rash Verified 02/24/19 08:00 [SHELLFISH DERIVED] adhesive [ADHESIVE] Allergy Unknown tape Verified 02/24/19 08:00 latex [LATEX] Allergy Unknown Hives Verified 02/24/19 08:00 Review of Systems Review of Systems Narrative: Patient reports nausea but no vomiting or hematemesis, she has had no melena. She denies any shortness of breath or chest pain. She denies any fever or chills. She has no sore throat. She denies any headache. No joint pains or rashes. All other review of systems is negative. Exam Vital Signs (past 8 hours): - 03/08/19 13:19 03/08/19 15:09 03/08/19 15:46 Temperature Pulse Rate 131 H 125 H 127 H Respiratory Rate 30 H 26 H 20 Blood Pressure 125/73 136/91 H Blood Pressure [Left Arm] 134/90 Pulse Oximetry 100 100 100 03/08/19 16:10 Temperature 98.4 F Pulse Rate 135 H Respiratory Rate 23 Blood Pressure 155/100 H Blood Pressure [Left Arm] Pulse Oximetry 99 Oxygen Delivery Method Room Air Oxygen Flow Rate 0 Narrative Exam Narrative: Ill-appearing female lying in bed in no obvious distress HEENT: Normocephalic atraumatic, extraocular muscles are intact, oropharynx reveals dry mucous membranes neck is supple without adenopathy, no appreciable thyromegaly Lungs: Clear to auscultation no rhonchi crackles or wheezes Cardiac exam: Tachycardic, regular rate and rhythm, normal S1-S2 Abdomen: Soft, nontender, nondistended, no appreciable hepatosplenomegaly, no palpable mass no board-like rigidity, no rebound tenderness mild left CVA tenderness on palpation. Extremities: No edema Neuro exam: Cranial nerves 2-12 are intact, strength is symmetric and equal, speech is fluent, there is no facial droop, sensation is grossly intact reflexes are brisk and equal Skin exam there is no rashes lesions ulcers noted Psychiatric exam: Patient is awake alert and appropriate, she answers questions appropriately, no evidence of hallucinations or delusions. Objective Labs Result Diagrams: 03/08/19 13:32 03/08/19 13:32 Labs: Laboratory Results - last 24 hr 03/08/19 03/08/19 03/08/19 13:32 13:32 13:32 WBC 20.9 H RBC 4.27 Hgb 13.6 Hct 42.3 MCV 99.1 D MCH 31.9 MCHC 32.2 RDW 13.4 Plt Count 1025 H* Neut % (Auto) 74.2 Lymph % (Auto) 20.0 L [place] % (Auto) 4.6 Eos % (Auto) 0.1 L Baso % (Auto) 1.1 Neut # (Auto) 48777 H Lymph # (Auto) 4200 [place] # (Auto) 1000 H Eos # (Auto) 0 Baso # (Auto) 200 H RBC Morphology Normal morphology VBG pH VBG pCO2 VBG pO2 VBG HCO3 VBG Total CO2 VBG O2 Saturation VBG Base Excess Sodium 138 Potassium 4.8 D Chloride 100 Carbon Dioxide < 5 L* BUN 22 H Creatinine 1.20 H Estimated GFR 53.9 L BUN/Creatinine Ratio 18.3 Glucose 614 H* D Lactate Calcium 9.7 Total Bilirubin 0.5 AST 25 ALT 38 H Alkaline Phosphatase 240 H D Total Protein 9.0 H Albumin 5.0 Globulin 4.0 Albumin/Globulin Ratio 1.3 Procalcitonin 0.23 Ketones 16.0 H 03/08/19 03/08/19 13:32 13:41 WBC RBC Hgb Hct MCV MCH MCHC RDW Plt Count Neut % (Auto) Lymph % (Auto) [place] % (Auto) Eos % (Auto) Baso % (Auto) Neut # (Auto) Lymph # (Auto) [place] # (Auto) Eos # (Auto) Baso # (Auto) RBC Morphology VBG pH 6.94 L* VBG pCO2 17.6 L VBG pO2 47 H VBG HCO3 4 L VBG Total CO2 < 5 L VBG O2 Saturation 57 L VBG Base Excess -29.0 L Sodium Potassium Chloride Carbon Dioxide BUN Creatinine Estimated GFR BUN/Creatinine Ratio Glucose Lactate 1.9 Calcium Total Bilirubin AST ALT Alkaline Phosphatase Total Protein Albumin Globulin Albumin/Globulin Ratio Procalcitonin Ketones Assessment & Plan Assessment & Plan narrative: Impression 1. 29-year-old female admitted to the hospital with diabetic ketoacidosis. Patient was found to have a hemoglobin A1c of 14% on February 17. This likely reflects poor glycemic control. It is still unclear whether the patient is taking her insulin as prescribed. She does report she followed up with her machine zipper trimmer who increased her tresiba to 43 units per day. Her chest x-ray shows no infiltrates. Will obtain a urinalysis given her recent history of pyelonephritis. Patient is on the DKA protocol. She is on an insulin drip. She is getting IV fluids with lactated Ringer's at this time and will recheck her electrolytes this evening. The patient will remain on the insulin drip overnight. Anticipate her blood sugars will improve quickly however her acidosis will take some time. She will have her fiance bring in her tresiba but to be administered tomorrow. Acute metabolic acidosis, related to her diabetic ketoacidosis anticipate this will resolve as her insulin drip continues and we continue IV hydration. 2. Acute kidney injury, likely related to dehydration associated with her DKA, patient is on lactated Ringer's at 200 cc/hour, will continue to recheck her electrolytes every 4 hours. 3. Recent history of pyelonephritis, will obtain urine culture, start the patient on IV ceftriaxone at this time if her urine culture comes back positive would consider repeat CT scan of her pelvis. It is reassuring that her procalcitonin is normal, she is afebrile at this time, would be vigilant to rule out the possibility of a perinephric abscess. 4. Recurrent vulvovaginitis, patient completed a treatment with Diflucan. 5. Vitamin-D deficiency, once the patient's DKA has been treated will resume her usual vitamin-D 6. Irregular menses, resume oral contraceptive pills once her DKA is resolved. 7. Thrombocytosis, likely reactive related to her DKA, will recheck labs and re-evaluate further. 8. Hypertension will follow up blood pressure closely. Consider adding MARA-inhibitor at discharge. Patient is a full code will note that a regular accordingly.
[2019-03-08 17:27] LABS: Pregnancy Test Serum,Qual Negative (Negative)
[2019-03-08 17:56] LABS: Hemoglobin A1C% w Est Avg Glu > 14.0 % (4.0-6.0)
[2019-03-08] MEDS: LACTATED RINGERS 1,000 ML 200 ML IV (18:07)
[2019-03-08 18:51] LABS: BUN Creatinine Ratio 21.1 (6-22); Blood Urea Nitrogen 19 mg/dL (7-17); Calcium 7.8 mg/dL (8.4-10.2); Chloride 116 mmol/L (98-107); Estimated Glomerular Filt Rate > 60.0 mL/min (>60); Glucose 296 mg/dL (70-100); HEMOLYSIS < 15 (0-50); Potassium 3.5 mmol/L (3.4-5.1); Sodium 144 mmol/L (137-145)
[2019-03-08 19:05] LABS: Carbon Dioxide 6 mmol/L (22-32)
[2019-03-08] MEDS: POTASSIUM CHLORIDE 40 MEQ in SODIUM CHLORIDE 0.9% 500 ML 130 ML IV (19:32)
[2019-03-08] MEDS: AMOXICILLIN/CLAV 875/125 MG 1 TAB PO (21:12)
[2019-03-08] MEDS: DEXTROSE 5%-0.45% NS 1,000 ML 200 ML IV (22:25)
[2019-03-09 00:39] LABS: Albumin 3.5 g/dL (3.5-5.0); BUN Creatinine Ratio 24.3 (6-22); Blood Urea Nitrogen 17 mg/dL (7-17); Calcium 8.4 mg/dL (8.4-10.2); Carbon Dioxide 14 mmol/L (22-32); Chloride 117 mmol/L (98-107); Estimated Glomerular Filt Rate > 60.0 mL/min (>60); Glucose 196 mg/dL (70-100); HEMOLYSIS < 15 (0-50); Magnesium 1.8 mg/dL (1.6-2.3); Phosphorous 2.6 mg/dL (2.5-4.5); Potassium 4.3 mmol/L (3.4-5.1); Sodium 142 mmol/L (137-145)
[2019-03-09] MEDS: HYDROMORPHONE 0.5 MG INJ IV ×6 (01:02→21:38)
[2019-03-09] MEDS: POTASSIUM CHLORIDE 20 MEQ in SODIUM CHLORIDE 0.9% 250 ML 130 ML IV (01:43)
[2019-03-09] MEDS: DEXTROSE 5%-0.45% NS 1,000 ML 200 ML IV (03:28)
[2019-03-09 05:09] VITALS: BP 95/55; PULSE 103; RESP 15; TEMP 36.7; O2SAT 97
[2019-03-09 05:26] LABS: Add Manual Diff / Slide Review NO; Basophils Absolute Auto 100 /uL (0-100); Basophils Percent Auto 0.5 % (0-2); Eosinophils Absolute Auto 0 /uL (0-450); Eosinophils Percent Auto 0.1 % (2-4); Hematocrit 28.9 % (36-46); Hemoglobin 10.2 g/dL (12.0-16.0); Lymphocytes Absolute Auto 1800 /uL (1100-4500); Lymphocytes Percent Auto 12.4 % (25-40); Mean Corpuscular HGB Conc 35.3 % (30-36); Mean Corpuscular Hemoglobin 32.4 PG (26-34); Mean Corpuscular Volume 91.7 fL (80-100); Monocytes Absolute Auto 900 /uL (0-900); Monocytes Percent Auto 6.1 % (3-14); Neutrophils Absolute Auto 11600 /uL (1500-7000); Neutrophils Percent Auto 80.9 % (50-75); Platelet Count 546 X10^3/uL (150-400); Red Blood Cell Count 3.15 X10^6/uL (4.0-5.2); Red Cell Distribution Width 12.6 % (11.6-14.8); White Blood Cell Count 14.3 X10^3/uL (4.5-11.0)
[2019-03-09 05:36] LABS: Alanine Aminotransferase 25 IU/L (<35); Albumin 3.2 g/dL (3.5-5.0); Albumin Globulin Ratio 1.1 (1.0-2.8); Alkaline Phosphatase 115 U/L (38-126); Aspartate Aminotransferase 24 IU/L (14-36); BUN Creatinine Ratio 21.7 (6-22); Bilirubin Total 0.3 mg/dL (0.2-1.3); Blood Urea Nitrogen 13 mg/dL (7-17); Calcium 8.6 mg/dL (8.4-10.2); Carbon Dioxide 19 mmol/L (22-32); Chloride 118 mmol/L (98-107); Estimated Glomerular Filt Rate > 60.0 mL/min (>60); Globulin 2.8 g/dL (1.7-4.1); Glucose 148 mg/dL (70-100); HEMOLYSIS < 15 (0-50); Magnesium 1.7 mg/dL (1.6-2.3); Potassium 3.4 mmol/L (3.4-5.1); Sodium 142 mmol/L (137-145)
[2019-03-09 05:37] LABS: Cholesterol 170 mg/dL (140-199); HDL Cholesterol 39 mg/dL (40-60); LDL Cholesterol Calculated 107 mg/dL (<100); Triglycerides 120 mg/dL (35-150); VLDL Cholesterol Calculated 24 mg/dL (2-30)
[2019-03-09] MEDS: POTASSIUM CHLORIDE 40 MEQ in SODIUM CHLORIDE 0.9% 500 ML 130 ML IV ×2 (06:06→11:12)
--- NOTE | 2019-03-09 06:25 | PC.NURSE ---
Filing Or Registry Clerk Note-Patient has been fatigued, intermittently tearful, c/o 'left back pain medicated with IV Dilaudid per prn, denies nausea. Insulin gtt titrated per protocol, see flow sheet. D5 /2NS @ 200ml/hr and K+ riders throughout night per protocol. SR/ST, afebrile.
[2019-03-09 07:41] VITALS: BP 104/49; PULSE 88; RESP 12; TEMP 36.7; O2SAT 97
[2019-03-09 08:35] LABS: Albumin 1.8 g/dL (3.5-5.0); Blood Urea Nitrogen 8 mg/dL (7-17); Carbon Dioxide 13 mmol/L (22-32); Estimated Glomerular Filt Rate > 60.0 mL/min (>60); Glucose 109 mg/dL (70-100); HEMOLYSIS < 15 (0-50); Phosphorous 1.4 mg/dL (2.5-4.5); Sodium 144 mmol/L (137-145)
[2019-03-09 08:39] LABS: Calcium 5.2 mg/dL (8.4-10.2); Chloride 128 mmol/L (98-107); Potassium 2.5 mmol/L (3.4-5.1)
--- NOTE | 2019-03-09 09:04 | CM.DANOTE ---
DCP: Case received, EMR reviewed and met with patient. Introduced self and role. Was able to meet with patient and obtain some baseline health history, but patient is known to hospital, as well. DCP assessment/template completed with information currently available. Patient is a 29 year old female who admitted yesterday afternoon to the care of the hospitalist team. PCP: Robbi. Payer: confirmed: [employer] . Patient came to the hospital via family vehicle secondary to increased flank back pain. Patient had been here recently with diagnosis of Pyelonephritis. She is a type 1 diabetic, and has had frequent admissions for DKA. Her blood sugar was in the 600s when admitted here. On patient's last admission, she was discharged home on oral antibiotics for her kidney infection. Patient stated she had a couple doses left to finish. Met briefly with patient. Confirmed that she's independent, lives with her boyfriend, Reggie. Asked her about seeing her licensed surveyor, stated that she did see him for a follow up after she was recently hospitalist here, but will be assigned a new one, since he will be leaving. Asked her if she has a primary doctor, and she stated that her primary is as [facility], Dr. Culp. During last admission, this case resource manager had called her insurance, [employer] to see if there was a case resource manager involved. They had mentioned that they attempted to reach out to patient after discharge, and she did not respond. Darion, from [facility] had also been contacted. Will attempt to reach out to him again. P: DCP to continue to follow case closely, and be available for any resources that patient may need. Anni Rudd RN/Building Energy Retrofit Technician
[2019-03-09] MEDS: HYDROCORTISONE 100 MG/2 ML VIAL 200 MG IV (09:46)
[2019-03-09] MEDS: diphenhydrAMINE 50 MG/ML VIAL IV (09:47)
[2019-03-09] MEDS: AMOXICILLIN/CLAV 875/125 MG 1 TAB PO ×2 (09:53→20:30)
[2019-03-09] MEDS: POTASSIUM CHLORIDE 20 MEQ TAB 40 MEQ PO (09:53)
--- NOTE | 2019-03-09 09:59 | DI.CT.S_ITS ---
PROCEDURE: CT ABDOMEN W CON INDICATIONS: r/o pyelo, perinephric abscess TECHNIQUE: After the administration of oral and intravenous contrast, 5 mm thick sections acquired from the diaphragms to the iliac crests. 5 mm thick coronal and sagittal reformats were acquired. For radiation dose reduction, the following was used: automated exposure control, adjustment of mA and/or kV according to patient size. COMPARISON: [facility], CT, CT CHEST ABD PEL W CON, 02/28/2019, 15:03. FINDINGS: Image quality: Excellent. Lung bases: Lung bases are clear. Heart size is normal. Solid organs: Liver is normal in size and enhancement. Gallbladder is normal. Biliary system is non dilated. Pancreas enhances normally. Spleen is normal in size and enhancement. No adrenal nodules. Kidneys are normal in size, without hydronephrosis. There is a hypoenhancing area in the inferior pole of the right kidney, decreased in size compared to 02/28/2019. Mild perinephric stranding is seen in this area. Small amount of perinephric fluid seen on the last exam resolved. No evidence for perinephric abscess. There are renal cortical scars in right kidney. Distended urinary bladder. Peritoneum and bowel: Stomach is distended with an air fluid level. There is a large amount of stool in colon. Contrast enhanced bowel loops appear normal in caliber. No free fluid or air. Nodes and vessels: There are borderline enlarged left para-aortic lymph nodes at the level of the left renal hilum measuring up to 0.9 x 1.5 cm, unchanged in size. Aorta and inferior vena cava are normal in size. Bones: No suspicious bony lesions. No vertebral body compression fractures. Miscellaneous: No ventral hernias. IMPRESSION: 1. Resolving pyelonephritis. The hypoenhancing area in the inferior pole the left kidney seen on the previous CT has decreased in size. There are renal cortical scars right kidney. No perinephric abscess is present. 2. Mild retroperitoneal lymphadenopathy, most likely reactive. 3. Distended urinary bladder, which could be due to intentional holding or bladder retention. 4. Distended stomach present at air-fluid level. 5. A large amount of stool in colon. Result was discussed with Dr. Servin. Dictated by: Keven Dotson M.D. on 03/09/2019 at 10:22 Approved by: Keven Dotson M.D. on 03/09/2019 at 11:00
[2019-03-09] MEDS: POTASSIUM CHLORIDE 20 MEQ TAB PO (10:10)
[2019-03-09] MEDS: ENOXAPARIN 40 MG/0.4 ML SYRINGE SUBCUT (10:37)
[2019-03-09] MEDS: MAGNESIUM HYDROXIDE 30 ML UDC PO ×2 (11:11→20:30)
[2019-03-09 12:00] VITALS: BP 110/52; PULSE 82; RESP 16; TEMP 36.7; O2SAT 98
[2019-03-09] MEDS: INSULIN ASPART 100 UNIT/ML INSULN PEN 8 UNIT SUBCUT ×2 (12:22→17:07)
[2019-03-09] MEDS: INSULIN ASPART 100 UNIT/ML INSULN PEN SUBCUT ×3 (12:22→20:31)
--- NOTE | 2019-03-09 14:56 | PC.NURSE ---
pt off insulin gtt and now on SQ insulin achs per md order- taking carb consistent diet and c/o flank pain intermittently with iv dilaudid- 2 large voids this shift totaling approx 2800cc and no bm - ct scan shows large amounts of stool in colon and distended bladder
--- NOTE | 2019-03-09 15:36 | P.PN_ITS ---
Subjective Subjective Date Patient Seen: 03/09/19 Interval history: Patient is a 29-year-old female with history of type 1 diabetes admitted for DKA, recently admitted for DKA and acute pyelonephritis due to pansensitive E coli. Patient has been on insulin drip overnight with resolution of DKA. Her major complaint this a.m. is of persistent pain in the left flank region. Exam Vital Signs (past 8 hours): - 03/09/19 07:41 03/09/19 12:00 Temperature 98.1 F 98.1 F Pulse Rate 88 82 Respiratory Rate 12 16 Blood Pressure 104/49 L 110/52 L Pulse Oximetry 97 98 Oxygen Delivery Method Room Air Oxygen Flow Rate 0 Narrative Exam Narrative: General: Alert, pleasant in no acute distress Lungs: Breathing nonlabored Abdomen: Soft nontender Extremities: No edema Objective Labs Result Diagrams: 03/09/19 05:00 03/09/19 08:19 Labs: Laboratory Results - last 24 hr 03/08/19 03/08/19 03/08/19 13:32 13:32 17:00 WBC RBC Hgb Hct MCV MCH MCHC RDW Plt Count Neut % (Auto) Lymph % (Auto) [place] % (Auto) Eos % (Auto) Baso % (Auto) Neut # (Auto) Lymph # (Auto) [place] # (Auto) Eos # (Auto) Baso # (Auto) Sodium Potassium Chloride Carbon Dioxide BUN Creatinine Estimated GFR BUN/Creatinine Ratio Glucose Hemoglobin A1c > 14.0 H Calcium Phosphorus Magnesium Total Bilirubin AST ALT Alkaline Phosphatase Total Protein Albumin Globulin Albumin/Globulin Ratio Triglycerides Cholesterol LDL Cholesterol, Calc VLDL Cholesterol HDL Cholesterol Serum , Qual Negative Nasal Screen MRSA (PCR) Negative for mrsa 03/08/19 03/09/19 03/09/19 18:00 00:05 00:05 WBC RBC Hgb Hct MCV MCH MCHC RDW Plt Count Neut % (Auto) Lymph % (Auto) [place] % (Auto) Eos % (Auto) Baso % (Auto) Neut # (Auto) Lymph # (Auto) [place] # (Auto) Eos # (Auto) Baso # (Auto) Sodium 144 142 Potassium 3.5 D 4.3 Chloride 116 H 117 H Carbon Dioxide 6 L* 14 L BUN 19 H 17 Creatinine 0.90 0.70 Estimated GFR > 60.0 > 60.0 BUN/Creatinine Ratio 21.1 24.3 H Glucose 296 H D 196 H D Hemoglobin A1c Calcium 7.8 L 8.4 Phosphorus 2.6 Magnesium 1.8 Total Bilirubin AST ALT Alkaline Phosphatase Total Protein Albumin 3.5 Globulin Albumin/Globulin Ratio Triglycerides Cholesterol LDL Cholesterol, Calc VLDL Cholesterol HDL Cholesterol Serum , Qual Nasal Screen MRSA (PCR) 03/09/19 03/09/19 03/09/19 05:00 05:00 05:00 WBC 14.3 H RBC 3.15 L Hgb 10.2 L Hct 28.9 L MCV 91.7 D MCH 32.4 MCHC 35.3 RDW 12.6 Plt Count 546 H Neut % (Auto) 80.9 H Lymph % (Auto) 12.4 L [place] % (Auto) 6.1 Eos % (Auto) 0.1 L Baso % (Auto) 0.5 Neut # (Auto) 08032 H Lymph # (Auto) 1800 [place] # (Auto) 900 Eos # (Auto) 0 Baso # (Auto) 100 Sodium 142 Potassium 3.4 Chloride 118 H Carbon Dioxide 19 L BUN 13 Creatinine 0.60 Estimated GFR > 60.0 BUN/Creatinine Ratio 21.7 Glucose 148 H Hemoglobin A1c Calcium 8.6 Phosphorus Magnesium 1.7 Total Bilirubin 0.3 AST 24 ALT 25 Alkaline Phosphatase 115 D Total Protein 6.0 L Albumin 3.2 L Globulin 2.8 Albumin/Globulin Ratio 1.1 Triglycerides Cholesterol LDL Cholesterol, Calc VLDL Cholesterol HDL Cholesterol Serum , Qual Nasal Screen MRSA (PCR) 03/09/19 03/09/19 03/09/19 05:00 05:00 08:19 WBC RBC Hgb Hct MCV MCH MCHC RDW Plt Count Neut % (Auto) Lymph % (Auto) [place] % (Auto) Eos % (Auto) Baso % (Auto) Neut # (Auto) Lymph # (Auto) [place] # (Auto) Eos # (Auto) Baso # (Auto) Sodium Cancelled 144 Potassium Cancelled 2.5 L* Chloride Cancelled 128 H* Carbon Dioxide Cancelled 13 L BUN Cancelled 8 Creatinine Cancelled 0.40 L Estimated GFR Cancelled > 60.0 BUN/Creatinine Ratio Cancelled 20.0 Glucose Cancelled 109 H Hemoglobin A1c Calcium Cancelled 5.2 L* Phosphorus 2.0 L 1.4 L Magnesium Total Bilirubin AST ALT Alkaline Phosphatase Total Protein Albumin Cancelled 1.8 L Globulin Albumin/Globulin Ratio Triglycerides 120 Cholesterol 170 LDL Cholesterol, Calc 107 H VLDL Cholesterol 24 HDL Cholesterol 39 L Serum , Qual Nasal Screen MRSA (PCR) Assessment & Plan Assessment & Plan narrative: Patient is a 29-year-old female with history of type 1 diabetes admitted for DKA, recently admitted for DKA and acute pyelonephritis due to pansensitive E coli. Patient has been on insulin drip overnight with resolution of DKA. 1. Acute recurrent DKA, present on admission -anion gap acidosis resolved with insulin drip, last glucose 196, her bicarbonate remains low likely due to hyperchloremic acidosis from IV fluids -discontinued insulin drip, started on oral diet and patient's long-acting insulin with Tresiba 43 units daily at 11:00 a.m., her basal insulin dose was recently increased by her parts salesman, continued on bolus insulin with NovoLog 10 units t.i.d. with meals and medium dose sliding scale, discontinue IV fluid 2. Recent acute bacterial pyelonephritis left kidney, resolving -urine culture last admission positive for pansensitive E coli -patient reported persistent left flank pain and a repeat contrast CT scan obtained 03/09/2019 which showed minimal left kidney stranding consistent with resolving pyelonephritis, also noted to have distended bladder and lots of stool in the colon which may be the cause her flank pain -complete 2 week antibiotic course with Augmentin which last dose would be 03/10/2019 -encourage bladder elimination and laxatives to promote bowel movement (last BM 2 days prior to admission) 3. Acute leukocytosis and thrombocytosis, present on admission -likely due to DKA and numbers are improving 4. Anemia due to volume shift -patient hemoconcentrated on admission and now back to her baseline H&H 5. Acute hypokalemia and hypocalcemia -serum potassium 2.5, replete with IV potassium rider 40 mEq and oral potassium 40 mEq, recheck level at 5:00 p.m. -serum calcium 5.2, likely due to volume repletion and hypoalbuminemia, likely not requiring replacement, check ionized calcium level -magnesium levels normal -repeat BMP in a.m. Patient with resolving DKA, improving hospital course, and hopefully can discharge home tomorrow.
[2019-03-09 15:53] VITALS: BP 113/68; PULSE 92; RESP 19; TEMP 36.7; O2SAT 98
[2019-03-09 18:43] LABS: BUN Creatinine Ratio 17.8 (6-22); Blood Urea Nitrogen 16 mg/dL (7-17); Calcium 8.8 mg/dL (8.4-10.2); Carbon Dioxide 20 mmol/L (22-32); Chloride 110 mmol/L (98-107); Estimated Glomerular Filt Rate > 60.0 mL/min (>60); Glucose 237 mg/dL (70-100); HEMOLYSIS < 15 (0-50); Potassium 3.7 mmol/L (3.4-5.1); Sodium 137 mmol/L (137-145)
[2019-03-09 19:48] VITALS: BP 121/57; PULSE 99; RESP 20; TEMP 36.4
[2019-03-09] MEDS: SENNOSIDES 8.6 MG TABLET 17.2 MG PO (20:30)
--- NOTE | 2019-03-09 23:02 | PC.NURSE ---
Patient resting in bed most of the shift. Up to BSC independently, voided and had bm this shift. Lower abd pain controlled well with IVP dilaudid. Patient has been A&O, calm and cooperative.
[2019-03-09 23:30] VITALS: BP 110/51; PULSE 81; RESP 16; TEMP 37.1; O2SAT 98
[2019-03-10] MEDS: HYDROMORPHONE 0.5 MG INJ IV ×3 (02:30→10:36)
[2019-03-10] MEDS: SODIUM CHLORIDE 0.9% FLUSH 10 ML IV (02:31)
[2019-03-10 04:25] VITALS: BP 115/58; PULSE 87; RESP 16; TEMP 37.1; O2SAT 98
[2019-03-10 05:38] LABS: Add Manual Diff / Slide Review NO; Basophils Absolute Auto 100 /uL (0-100); Basophils Percent Auto 0.8 % (0-2); Eosinophils Absolute Auto 0 /uL (0-450); Eosinophils Percent Auto 0.4 % (2-4); Hematocrit 28.8 % (36-46); Lymphocytes Absolute Auto 2400 /uL (1100-4500); Lymphocytes Percent Auto 29.7 % (25-40); Mean Corpuscular HGB Conc 34.8 % (30-36); Mean Corpuscular Hemoglobin 32.6 PG (26-34); Mean Corpuscular Volume 93.7 fL (80-100); Monocytes Absolute Auto 500 /uL (0-900); Monocytes Percent Auto 6.3 % (3-14); Neutrophils Absolute Auto 5000 /uL (1500-7000); Neutrophils Percent Auto 62.8 % (50-75); Platelet Count 445 X10^3/uL (150-400); Red Blood Cell Count 3.07 X10^6/uL (4.0-5.2); Red Cell Distribution Width 13.2 % (11.6-14.8)
[2019-03-10 05:43] LABS: Blood Urea Nitrogen 22 mg/dL (7-17); Calcium 8.8 mg/dL (8.4-10.2); Carbon Dioxide 21 mmol/L (22-32); Chloride 108 mmol/L (98-107); Estimated Glomerular Filt Rate > 60.0 mL/min (>60); Glucose 223 mg/dL (70-100); HEMOLYSIS < 15 (0-50); Potassium 3.6 mmol/L (3.4-5.1); Sodium 137 mmol/L (137-145)
--- NOTE | 2019-03-10 06:40 | PC.NURSE ---
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 Requests IV Dilaudid Q4h prn for continuing left flank pain. Voided 1100ml urine at 0630.
[2019-03-10 08:00] VITALS: BP 121/65; PULSE 83; RESP 16; TEMP 36.5; O2SAT 97
[2019-03-10] MEDS: INSULIN ASPART 100 UNIT/ML INSULN PEN 8 UNIT SUBCUT ×2 (08:28→12:24)
[2019-03-10] MEDS: AMOXICILLIN/CLAV 875/125 MG 1 TAB PO (08:28)
[2019-03-10] MEDS: INSULIN ASPART 100 UNIT/ML INSULN PEN SUBCUT ×2 (08:28→12:24)
--- NOTE | 2019-03-10 09:51 | P.DS_ITS ---
History of Present Illness History of Present Illness Chief complaint: Left Side Kidney pain, Severe, Diabetic Narrative: The patient is a 29-year-old female with a history of type 1 diabetes, migraine headaches, nephrolithiasis, irregular menses, vitamin-D deficiency who was discharged from the hospital l 1 week ago after treatment for pyelonephritis. The patient was found to have pansensitive E coli and initially was treated with Zosyn, she was switched to Augmentin and was discharged home. She has taken her Augmentin and have 2 additional tablets to take. During that admission she was also found to have acute acalculous cholecystitis, she had isolated transaminitis with hepatic steatosis on admission that resolved. She has a history of recurrent vulvovaginitis, there was some concern regarding PID which appears to be ruled out. She also had DKA on that admission with associated YURI and anion gap metabolic acidosis. Patient reports she was well until this morning when she woke up with severe left flank pain. She reports taking her insulin as directed in addition to her other medications. She presented to the emergency room for evaluation. In the emergency room the patient was found to be markedly acidotic with a pH of 6.9 her pCO2 was 17, blood sugar was elevated at 614. Patient was admitted to the hospital for DKA. The patient received 1 dose of Dilaudid in the emergency room. She reports no flank pain at this time. She also reports no dysuria hematuria or pyuria. She has not urinated since she arrived to the floor. She is markedly tachycardic with heart rate of 143. She is getting IV hydration at this time. The patient states she followed up with Endocrinology as an outpatient and has had her insulin adjusted to include 43 units of triseba daily in addition to her sliding scale of insulin. Discharge Providers Provider Date of admission: 03/08/19 14:49 Discharge Date: 03/10/19 Discharge provider: Pedro Servin MD Summary Hospital Course Discharge Diagnosis: 1. Acute recurrent DKA 2. Resolving acute bacterial pyelonephritis of left kidney 3. Chronic anemia, stable 4. Acute leukocytosis and thrombocytosis secondary to DKA, resolved 5. Acute hypokalemia, resolved Hospital Course: Patient came in with DKA and treated with insulin drip. DKA resolved and she was taken off her insulin drip and started on basal and bolus insulin the following day. She is eating normally, no vomiting, no abdominal pain. She had been complaining of persistent left flank pain status post recent inpatient admit for acute pyelonephritis. A repeat contrast chest CT showed minimal stranding of the left kidney consistent with resolving pyelonephritis. She has received 2 weeks of antibiotic course including the IV treatment in hospital and will finish the couple days of Augmentin pills she has left at home. I do not think the back pain is due to pyelonephritis. She was noted to have lots of colonic stool on CT and was able to have bowel movement prior to discharge. In regards to insulin management, she will continue on Tresiba 43 units daily which was recently increased. She is instructed to increase her Humalog dosing up to 8 or 10 units with meals plus medium dose sliding scale. She follow up with her business ethics professor. Status at Discharge Cognitive/behavioral status at discharge: oriented Functional status at discharge: independent ambulation Overall status at discharge: patient is back to baseline Time Spent with Patient Time spent: Less than 30 minutes Exam Vital Signs (past 8 hours): - 03/10/19 04:25 03/10/19 08:00 Temperature 98.8 F 97.7 F Pulse Rate 87 83 Respiratory Rate 16 16 Blood Pressure 115/58 L 121/65 Pulse Oximetry 98 97 Oxygen Delivery Method Room Air Oxygen Flow Rate 0 Objective Labs Result Diagrams: 03/10/19 05:20 03/10/19 05:20 Labs: Laboratory Results - last 24 hr 03/09/19 03/10/19 03/10/19 18:20 05:20 05:20 WBC 8.0 RBC 3.07 L Hgb 10.0 L Hct 28.8 L MCV 93.7 MCH 32.6 MCHC 34.8 RDW 13.2 Plt Count 445 H Neut % (Auto) 62.8 Lymph % (Auto) 29.7 [place] % (Auto) 6.3 Eos % (Auto) 0.4 L Baso % (Auto) 0.8 Neut # (Auto) 5000 Lymph # (Auto) 2400 [place] # (Auto) 500 Eos # (Auto) 0 Baso # (Auto) 100 Sodium 137 137 Potassium 3.7 D 3.6 Chloride 110 H 108 H Carbon Dioxide 20 L 21 L BUN 16 22 H Creatinine 0.90 1.00 Estimated GFR > 60.0 > 60.0 BUN/Creatinine Ratio 17.8 22.0 Glucose 237 H D 223 H Calcium 8.8 8.8 Discharge Plan Discharge Plan Patient Disposition: Home Discharge orders & Medications Prescriptions: Continued Tresiba FlexTouch U-100 100 unit/mL (3 mL) Insulin Pen 40 unit Sub-Q DAILY Qty: 15 RF: 2 glucose 4 gram tablet,chewable 4 gram PO Q15M PRN (Reason: hypoglycemia) Qty: 30 RF: 0 Glucagon Emergency Kit (human) 1 mg recon soln 1 mg subcut DIRECTED RF: 0 ergocalciferol (vitamin D2) [Vitamin D2] 50,000 unit capsule 50,000 unit PO QWEEK RF: 0 norethindrone (contraceptive) [[place]ana] 0.35 mg Tablet 0.35 mg PO DAILY RF: 0 cholecalciferol (vitamin D3) [Vitamin D3] 2,000 unit Capsule 2,000 unit PO DAILY RF: 0 amoxicillin-pot clavulanate [Augmentin] 875-125 mg tablet 1 tab PO BID Qty: 16 RF: 0 Bacid 1 billion cell- 250 mg Tablet 1 ea PO TIDWM Qty: 42 RF: 0 nystatin 100,000 unit/gram Ointment 1 applic topical TID Qty: 15 RF: 0 Changed insulin lispro [Humalog KwikPen Insulin] 100 unit/mL insulin pen See Rx Instructions .ROUTE .COMPLEX Qty: 0 RF: 0 Discontinued fluconazole [Diflucan] 100 mg tablet 100 mg PO DAILY Qty: 4 RF: 0 Diet/Activity/Treatments Diet: Diet as Tolerated
--- NOTE | 2019-03-10 12:42 | PC.NURSE ---
PT D/C TO HOME , ESCORTED BY HER MOTHER - REMOVED IV ACCESS AND REVIEWED DICHARGE PLAN AND RX
[2019-03-11 14:15] LABS: Ionized Calcium 4.8 mg/dL (4.8-5.6)
== END 2019-03-10 12:45 | disposition home or self-care (01) | DRG 638 ==
LOC: ED 14:11 → AC 14:50 → ICU 14:59
PROVIDERS: Internal Medicine; Nurse Practitioner Gerontology; Admitting Provider Internal Medicine; Emergency Provider Emergency Medicine; Visit Provider Internal Medicine
DX: E10.10 Type 1 diabetes mellitus with ketoacidosis without coma (principal); N17.9 Acute kidney failure, unspecified; N10 Acute pyelonephritis; E86.0 Dehydration; D47.3 Essential (hemorrhagic) thrombocythemia; E55.9 Vitamin D deficiency, unspecified; N76.0 Acute vaginitis; B96.20 Unspecified Escherichia coli [E. coli] as the cause of diseases classified elsewhere; E87.6 Hypokalemia
CPT/HCPCS: 36415; 36592; 71045; 74160; 80048; 80053; 80061; 80069; 82009; 82330; 82805; 82962; 83036; 83605; 83735; 84100; 84145; 84703; 85025; 87040; 87086; 87797; 93005; 96361; 96374; 96375; 99283; 99291; J1170; J1200; J1642; J1650; J1720; J2765; J3480; Q9967

== ENCOUNTER 2019-03-15 20:06 | Inpatient (IN) | payer MEDICAID, SELFPAY ==
[2019-03-08 18:17] VITALS: BMI 19.3
[2019-03-15 20:26] VITALS: BP 169/120; PULSE 156; RESP 30; O2SAT 100; BMI 20.7
[2019-03-15] MEDS: HYDROMORPHONE 1 MG INJ IV (20:30)
[2019-03-15 20:31] LABS: Add Manual Diff / Slide Review NO; Basophils Absolute Auto 200 /uL (0-100); Basophils Percent Auto 1.8 % (0-2); Eosinophils Absolute Auto 0 /uL (0-450); Hematocrit 43.3 % (36-46); Lymphocytes Absolute Auto 2000 /uL (1100-4500); Lymphocytes Percent Auto 17.7 % (25-40); Mean Corpuscular HGB Conc 32.3 % (30-36); Mean Corpuscular Hemoglobin 32.7 PG (26-34); Monocytes Absolute Auto 400 /uL (0-900); Neutrophils Absolute Auto 8500 /uL (1500-7000); Neutrophils Percent Auto 76.5 % (50-75); Platelet Count 793 X10^3/uL (150-400); Red Blood Cell Count 4.29 X10^6/uL (4.0-5.2); Red Cell Distribution Width 14.1 % (11.6-14.8); White Blood Cell Count 11.1 X10^3/uL (4.5-11.0)
[2019-03-15] MEDS: SODIUM CHLORIDE 0.9% 1,000 ML 150 ML IV (20:31)
--- NOTE | 2019-03-15 20:40 | ED.GENADULT ---
HPI - General Adult General Chief complaint: Diabetic Problem Stated complaint: States DKA Time Seen by Provider: 03/15/19 20:09 Source: patient and family Mode of arrival: Wheelchair Limitations: no limitations History of Present Illness HPI narrative: 29-year-old female who is known to this department myself is an individual who has frequent episodes of DKA. Her last episode was within the past 2 weeks. She was admitted here to the hospital. Was discharged within the past week. At that period of time it does appear that she was diagnosed with pyelonephritis. Received antibiotics. Was sent home on amoxicillin. She states that she finished that course of antibiotics yesterday. She states she has been taking her insulin. She states that her diet is ?better than it has been ?however over the past 24 hours or so she has felt generalized abdominal pain, body aches, left-sided pain. She states she feels like she is back in DKA. Related Data Home Medications Medication Instructions Recorded Confirmed Glucagon Emergency Kit (human) 1 mg SUBCUT DIRECTED 02/16/19 03/09/19 cholecalciferol (vitamin D3) 2,000 unit PO DAILY 02/16/19 03/09/19 [Vitamin D3] ergocalciferol (vitamin D2) 50,000 unit PO QWEEK 02/16/19 03/09/19 [Vitamin D2] norethindrone (contraceptive) 0.35 mg PO DAILY 02/16/19 03/09/19 [[place]] Previous Rx's Medication Instructions Recorded Tresiba FlexTouch U-100 40 unit SUB-Q DAILY #15 ml 12/12/18 glucose 4 gram PO Q15M PRN #30 tab 12/12/18 Bacid 1 ea PO TIDWM #42 tab 03/02/19 amoxicillin-pot clavulanate 1 tab PO BID #16 tab 03/02/19 [Augmentin] nystatin 1 applic TOPICAL TID #15 gram 03/02/19 insulin lispro [Humalog KwikPen See Rx Instructions .ROUTE 03/10/19 Insulin] .COMPLEX #0 ml Allergies Allergy/AdvReac Type Severity Reaction Status Date / Time arredondo [ARREDONDO] Allergy Intermediate Hives, Verified 02/24/19 08:00 pruritus iodine [IODINE] Allergy Intermediate rash, itchy Verified 02/24/19 08:00 morphine Allergy Intermediate Difficulty Verified 02/24/19 08:00 Breathing shellfish derived Allergy Intermediate rash Verified 02/24/19 08:00 [SHELLFISH DERIVED] adhesive [ADHESIVE] Allergy Unknown tape Verified 02/24/19 08:00 latex [LATEX] Allergy Unknown Hives Verified 02/24/19 08:00 Review of Systems Constitutional Constitutional: Reports fatigue, Denies fever(s), Reports lethargy and Reports weakness Cardiovascular Cardiovascular: Reports chest pain and Reports dyspnea Respiratory Respiratory: Reports dyspnea Gastrointestinal Gastrointestinal: Reports abdominal pain, Denies change in stool character, Reports nausea and Denies vomiting Genitourinary Comments: Left-sided flank pain Musculoskeletal Musculoskeletal: Reports myalgias and Reports arthralgias Integumentary/Breasts Skin/Breast: Denies lesions and Denies rash Neurologic Neurologic: Denies behavioral changes, Denies confusion and Reports weakness Psychiatric Psychiatric: Denies behavioral changes and Denies confusion Endocrine Endocrine: Reports fatigue Hematologic/Lymphatic Hematologic/Lymphatic: Denies easy bleeding and Denies easy bruising Patient History Medical History DKA (diabetic ketoacidoses) (Resolved) History of pyelonephritis (Resolved) Irregular menstrual cycle (Acute) Migraine headache (Chronic) Nephrolithiasis (Resolved) Type 1 diabetes mellitus (Chronic) Surgical History History of ureter stent (Resolved) Status post laser lithotripsy of ureteral calculus (Acute) [place] teeth extracted (Acute) Social History details: Engaged household members: significant other and family Smoking Status: Never smoker alcohol intake: never alcohol intake frequency: holidays/special occasions only Substance Use Type: does not use Exam Initial Vital Signs Initial Vital Signs: Vital Signs Pulse Rate 156 H 03/15/19 20:26 Respiratory Rate 30 H 03/15/19 20:26 Blood Pressure 169/120 H 03/15/19 20:26 Pulse Oximetry 100 03/15/19 20:26 Const General: cooperative and No acute distress Orientation: alert, awake and oriented x3 HENMT Head: normal to inspection and normocephalic Nose: external nose normal Resp Effort & Inspection: not labored and tachypneic Auscultation: clear to auscultation bilaterally Cardio Rate: tachycardic Rhythm: regular rhythm Pulses: radial pulses present GI Inspection: non-distended Palpation: soft and tender (Diffuse tenderness) Back/Spine/Pelvis Back: CVA tenderness left Skin Lesions: no lesions Rashes: no rashes Neuro General: alert and awake Cognition: normal cognition Speech: speech normal Motor: muscle tone normal throughout Extrem General: normal to inspection and capillary refill normal Psych Appearance: grossly normal and well kempt Scores GCS [place] coma scale eye opening: Spontaneous [place] coma scale verbal response: Orientated Alex coma scale motor response: Obey commands [place] coma scale total score: 15 Course Orders Ordered: ED Orders 03/15/19 20:10 Arterial Blood Gas Stat 03/15/19 20:20 C-Reactive Protein Quant Stat Complete Blood Count AUTO DIFF Stat Comprehensive Metabolic Panel Stat Ethanol (ETOH) Stat Ketones (Beta-Hydroxybutyrate) Stat Lactate (Lactic Acid) Stat Lipase Stat Magnesium Stat Phosphorous Stat Test Serum,Qual Stat Procalcitonin Stat Thyroid Stimulating Hormone Stat 03/15/19 20:30 Arterial Blood Gas Stat 03/15/19 21:35 Blood Culture Stat 03/15/19 21:37 CT abdomen pelvis w con Stat 03/15/19 22:34 Urinalysis and Microscopic Routine 03/15/19 22:48 Yeast Fungus ID Stat 03/15/19 23:10 BMP [Basic Metabolic Panel] Stat Sodium Chloride (Normal Saline 0.9%) 1,000 mls @ 150 mls/hr IV CONT BLAISE Last Infusion: 03/15/19 22:15 Dose: 0 mls/hr Documented by: Infusion: 03/15/19 21:00 Dose: 999 mls/hr Documented by: Admin: 03/15/19 20:31 Dose: 150 mls/hr Documented by: SHIRLEY Insulin Human Regular 100 unit (/ Sodium Chloride) 100 mls @ 5 mls/hr IV TITRATE BLAISE; Protocol Last Admin: 03/15/19 21:49 Dose: 5 ml/hr, 5 mls/hr Documented by: NEREYDA Cosigned by: KELSEY Discontinued Medications Diphenhydramine HCl (Benadryl) 25 mg IV NOW ONE Stop: 03/15/19 21:40 Last Admin: 03/15/19 21:54 Dose: 25 mg Documented by: NEREYDA Hydromorphone HCl (Dilaudid) 1 mg IV NOW ONE Stop: 03/15/19 20:26 Last Admin: 03/15/19 20:30 Dose: 1 mg Documented by: SHIRLEY Hydromorphone HCl (Dilaudid) 0.5 mg IV NOW ONE Stop: 03/15/19 22:55 Last Admin: 03/15/19 23:02 Dose: 0.5 mg Documented by: KELSEY Sodium Chloride (Normal Saline 0.9%) 1,000 mls @ 1,000 mls/hr IV BOLUS ONE Stop: 03/15/19 22:00 Last Infusion: 03/15/19 22:26 Dose: 150 mls/hr Documented by: Admin: 03/15/19 22:25 Dose: 1,000 mls/hr Documented by: KELSEY Methylprednisolone (Solu-Medrol 125 Mg Vial) 40 mg IV NOW ONE Stop: 03/15/19 21:40 Last Admin: 03/15/19 21:54 Dose: 40 mg Documented by: NEREYDA Vital Signs Vital signs: Vital Signs - 8 hr 03/15/19 20:26 03/15/19 21:36 Pulse Rate 156 H 130 H Respiratory Rate 30 H 18 Blood Pressure 169/120 H Blood Pressure [Right Arm] 140/91 H Pulse Oximetry 100 Medical Decision Making Medical Records Medical records reviewed: Yes I reviewed the patient's medical records. Lab Data Lab results reviewed: Yes I reviewed the patient's lab results. Result diagrams: 03/15/19 20:20 03/15/19 23:10 Labs: Lab Results 03/15/19 03/15/19 03/15/19 Range/Units 20:20 20:20 20:20 WBC 11.1 H (4.5-11.0) X10^3/uL RBC 4.29 (4.0-5.2) X10^6/uL Hgb 14.0 (12.0-16.0) g/dL Hct 43.3 (36-46) % MCV 101.0 H D (80-100) fL MCH 32.7 (26-34) PG MCHC 32.3 (30-36) % RDW 14.1 (11.6-14.8) % Plt Count 793 H (150-400) X10^3/uL Neut % (Auto) 76.5 H (50-75) % Lymph % (Auto) 17.7 L (25-40) % [place] % (Auto) 4.0 (3-14) % Eos % (Auto) 0.0 L (2-4) % Baso % (Auto) 1.8 (0-2) % Neut # (Auto) 8500 H (9576-4365) /uL Lymph # (Auto) 2000 (1937-3425) /uL [place] # (Auto) 400 (0-900) /uL Eos # (Auto) 0 (0-450) /uL Baso # (Auto) 200 H (0-100) /uL Platelet Estimate Increased on smear RBC Morphology See below Macrocytosis 1+ H ABG pH (7.35-7.45) ABG pCO2 (35-45) mmHg ABG pO2 (80-100) mmHg ABG HCO3 (22-26) mmol/L ABG Total CO2 (21-31) mmol/L ABG O2 Saturation (95-100) % ABG Base Excess (-2-2) mmol/L FiO2 Sodium 141 (137-145) mmol/L Potassium 4.7 (3.4-5.1) mmol/L Chloride 102 (98-107) mmol/L Carbon Dioxide 5 L* (22-32) mmol/L BUN 25 H (7-17) mg/dL Creatinine 1.20 H (0.52-1.04) mg/dL Estimated GFR 53.9 L (>60) mL/min BUN/Creatinine Ratio 20.8 (6-22) Glucose 618 H* D (70-100) mg/dL Lactate (0.7-2.1) mmol/L Calcium 10.0 (8.4-10.2) mg/dL Phosphorus (2.5-4.5) mg/dL Magnesium (1.6-2.3) mg/dL Total Bilirubin 0.5 (0.2-1.3) mg/dL AST 17 (14-36) IU/L ALT 24 (<35) IU/L Alkaline Phosphatase 217 H D (38-126) U/L C-Reactive Protein (<1.0) mg/dL Total Protein 9.1 H (6.3-8.2) g/dL Albumin 5.2 H (3.5-5.0) g/dL Globulin 3.9 (1.7-4.1) g/dL Albumin/Globulin Ratio 1.3 (1.0-2.8) Lipase (23-300) U/L Procalcitonin 0.12 (<0.5) ng/mL TSH (0.47-4.68) uIU/mL Serum , Qual Negative (Negative) Urine Color Urine Appearance Urine pH (4.5-8.0) Ur Specific [place] (1.000-1.035) Urine Protein (Negative) Urine Glucose (UA) (Negative) g/dL Urine Ketones (NEGATIVE) Urine Occult Blood (Negative) Urine Nitrate (Negative) Urine Bilirubin (NEGATIVE) Urine Urobilinogen (0.2) E.U./dL Ur Leukocyte Esterase (NEGATIVE) Urine RBC (0-5/HPF) Urine WBC (0-5/HPF) Ur Squamous Epith Cells (0-5/HPF) Urine Bacteria (None) Urine Yeast (None) Ur Culture Indicated? Ethyl Alcohol < 10 ( - 10) mg/dL Ketones (<0.27) mmol/L 03/15/19 03/15/19 03/15/19 Range/Units 20:20 20:20 20:20 WBC (4.5-11.0) X10^3/uL RBC (4.0-5.2) X10^6/uL Hgb (12.0-16.0) g/dL Hct (36-46) % MCV (80-100) fL MCH (26-34) PG MCHC (30-36) % RDW (11.6-14.8) % Plt Count (150-400) X10^3/uL Neut % (Auto) (50-75) % Lymph % (Auto) (25-40) % [place] % (Auto) (3-14) % Eos % (Auto) (2-4) % Baso % (Auto) (0-2) % Neut # (Auto) (8544-9372) /uL Lymph # (Auto) (4052-4578) /uL [place] # (Auto) (0-900) /uL Eos # (Auto) (0-450) /uL Baso # (Auto) (0-100) /uL Platelet Estimate RBC Morphology Macrocytosis ABG pH (7.35-7.45) ABG pCO2 (35-45) mmHg ABG pO2 (80-100) mmHg ABG HCO3 (22-26) mmol/L ABG Total CO2 (21-31) mmol/L ABG O2 Saturation (95-100) % ABG Base Excess (-2-2) mmol/L FiO2 Sodium (137-145) mmol/L Potassium (3.4-5.1) mmol/L Chloride (98-107) mmol/L Carbon Dioxide (22-32) mmol/L BUN (7-17) mg/dL Creatinine (0.52-1.04) mg/dL Estimated GFR (>60) mL/min BUN/Creatinine Ratio (6-22) Glucose (70-100) mg/dL Lactate 2.6 H (0.7-2.1) mmol/L Calcium (8.4-10.2) mg/dL Phosphorus 7.3 H D (2.5-4.5) mg/dL Magnesium 2.7 H (1.6-2.3) mg/dL Total Bilirubin (0.2-1.3) mg/dL AST (14-36) IU/L ALT (<35) IU/L Alkaline Phosphatase (38-126) U/L C-Reactive Protein (<1.0) mg/dL Total Protein (6.3-8.2) g/dL Albumin (3.5-5.0) g/dL Globulin (1.7-4.1) g/dL Albumin/Globulin Ratio (1.0-2.8) Lipase 258 (23-300) U/L Procalcitonin (<0.5) ng/mL TSH 2.64 (0.47-4.68) uIU/mL Serum , Qual (Negative) Urine Color Urine Appearance Urine pH (4.5-8.0) Ur Specific [place] (1.000-1.035) Urine Protein (Negative) Urine Glucose (UA) (Negative) g/dL Urine Ketones (NEGATIVE) Urine Occult Blood (Negative) Urine Nitrate (Negative) Urine Bilirubin (NEGATIVE) Urine Urobilinogen (0.2) E.U./dL Ur Leukocyte Esterase (NEGATIVE) Urine RBC (0-5/HPF) Urine WBC (0-5/HPF) Ur Squamous Epith Cells (0-5/HPF) Urine Bacteria (None) Urine Yeast (None) Ur Culture Indicated? Ethyl Alcohol ( - 10) mg/dL Ketones 15.90 H (<0.27) mmol/L 03/15/19 03/15/19 03/15/19 Range/Units 20:20 20:30 22:34 WBC (4.5-11.0) X10^3/uL RBC (4.0-5.2) X10^6/uL Hgb (12.0-16.0) g/dL Hct (36-46) % MCV (80-100) fL MCH (26-34) PG MCHC (30-36) % RDW (11.6-14.8) % Plt Count (150-400) X10^3/uL Neut % (Auto) (50-75) % Lymph % (Auto) (25-40) % [place] % (Auto) (3-14) % Eos % (Auto) (2-4) % Baso % (Auto) (0-2) % Neut # (Auto) (1344-4975) /uL Lymph # (Auto) (5915-0487) /uL [place] # (Auto) (0-900) /uL Eos # (Auto) (0-450) /uL Baso # (Auto) (0-100) /uL Platelet Estimate RBC Morphology Macrocytosis ABG pH 6.98 L* (7.35-7.45) ABG pCO2 8.6 L* (35-45) mmHg ABG pO2 119 H (80-100) mmHg ABG HCO3 2 L (22-26) mmol/L ABG Total CO2 5 L (21-31) mmol/L ABG O2 Saturation 96 (95-100) % ABG Base Excess -30.0 L (-2-2) mmol/L FiO2 0.21 Sodium (137-145) mmol/L Potassium (3.4-5.1) mmol/L Chloride (98-107) mmol/L Carbon Dioxide (22-32) mmol/L BUN (7-17) mg/dL Creatinine (0.52-1.04) mg/dL Estimated GFR (>60) mL/min BUN/Creatinine Ratio (6-22) Glucose (70-100) mg/dL Lactate (0.7-2.1) mmol/L Calcium (8.4-10.2) mg/dL Phosphorus (2.5-4.5) mg/dL Magnesium (1.6-2.3) mg/dL Total Bilirubin (0.2-1.3) mg/dL AST (14-36) IU/L ALT (<35) IU/L Alkaline Phosphatase (38-126) U/L C-Reactive Protein 0.9 (<1.0) mg/dL Total Protein (6.3-8.2) g/dL Albumin (3.5-5.0) g/dL Globulin (1.7-4.1) g/dL Albumin/Globulin Ratio (1.0-2.8) Lipase (23-300) U/L Procalcitonin (<0.5) ng/mL TSH (0.47-4.68) uIU/mL Serum , Qual (Negative) Urine Color Yellow Urine Appearance Clear Urine pH 5.0 (4.5-8.0) Ur Specific [place] 1.010 (1.000-1.035) Urine Protein Trace H (Negative) Urine Glucose (UA) 2+ H (Negative) g/dL Urine Ketones 3+ H (NEGATIVE) Urine Occult Blood Trace-lysed (Negative) Urine Nitrate Negative (Negative) Urine Bilirubin Negative (NEGATIVE) Urine Urobilinogen 0.2 (0.2) E.U./dL Ur Leukocyte Esterase Negative (NEGATIVE) Urine RBC 0-1/hpf (0-5/HPF) Urine WBC None seen (0-5/HPF) Ur Squamous Epith Cells 0-1 /hpf (0-5/HPF) Urine Bacteria None seen (None) Urine Yeast 0-1/hpf (None) Ur Culture Indicated? Cult not indicated Ethyl Alcohol ( - 10) mg/dL Ketones (<0.27) mmol/L Point of Care Testing Test Results Negative Glucose POC 480 Point of care testing: Point of Care Testing Test Results Negative Glucose POC [address] scan - abdomen: Radiologist's impression: Marked bladder distention with bilateral hydronephrosis and ureteral dilation ECG Data Attestation: I personally reviewed and interpreted this ECG as follows: Prior ECG tracings: not available for review Interpretation: Sinus tachycardia Ventricular rate of 131 Normal axis Normal QRS Normal QTC No ST T wave changes MDM Narrative Medical decision making narrative: Patient states she has been taking her insulin. She states that her diet is better than what it has been in the past. Patient's issues in the past have been with indiscretion in her diet and lack of insulin however her most recent admission there was concern that maybe an infection was the cause of her symptoms. I did discuss the case with MARGO Spicer who knew the patient during her last admission and there was concern about a left-sided perinephric abscess. The CT scan was ordered because of this. There is no indication of that reported on the CT scan today. She did have marked urinary bladder dilation. Patient was able to urinate approximately 1200 cc of urine here in the ER. Postvoid residual shows less than 150 cc left in the bladder. Patient states that she had little urgency to urinate. I do have some suspicion of a neurogenic bladder potentially secondary to her diabetes. This enlarged bladder could also be the reason for her elevated creatinine today. Her potassium is unremarkable. Anion gap of 34. She was started on insulin drip. Was given fluids. Discussed the case with MARGO Spicer the [facility] hospital provider who will admit. Discussed the diagnosis of the patient who expressed understanding and agreement. Critical Care Time Critical Care Time Critical Care Time: Yes Total Critical Care Time: 35 Attestation: The high probability of a clinically significant, sudden or life threatening deterioration of the endocrine system(s) required my full and direct attention, intervention and personal management. The aggregate critical care time was 35 minutes. This time is in addition to time spent performing reported procedures but includes the following: [] Data Review and interpretation [] Patient assessment and monitoring of vital signs [] Documentation [] Medication orders and management Discharge Plan Departure Patient Disposition: Admitted As Inpatient Clinical Impression: YURI (acute kidney injury) DKA (diabetic ketoacidoses) Qualifiers: Diabetes mellitus type: type 1 Diabetes mellitus complication detail: without coma Qualified Code(s): E10.10 - Type 1 diabetes mellitus with ketoacidosis without coma Admit Date/Time: 03/15/19 22:54 Admit Provider: Julio Cesar Spicer
[2019-03-15 20:45] LABS: Lactate (Lactic Acid) 2.6 mmol/L (0.7-2.1); Lipase 258 U/L (23-300); Magnesium 2.7 mg/dL (1.6-2.3); Phosphorous 7.3 mg/dL (2.5-4.5)
[2019-03-15 20:46] LABS: Alanine Aminotransferase 24 IU/L (<35); Albumin 5.2 g/dL (3.5-5.0); Albumin Globulin Ratio 1.3 (1.0-2.8); Alkaline Phosphatase 217 U/L (38-126); Aspartate Aminotransferase 17 IU/L (14-36); BUN Creatinine Ratio 20.8 (6-22); Bilirubin Total 0.5 mg/dL (0.2-1.3); Blood Urea Nitrogen 25 mg/dL (7-17); Chloride 102 mmol/L (98-107); Estimated Glomerular Filt Rate 53.9 mL/min (>60); Globulin 3.9 g/dL (1.7-4.1); HEMOLYSIS < 15 (0-50); Potassium 4.7 mmol/L (3.4-5.1); Sodium 141 mmol/L (137-145); Total Protein 9.1 g/dL (6.3-8.2)
[2019-03-15 20:47] LABS: PCO2 ABG 8.6 mmHg (35-45); PO2 ABG 119 mmHg (80-100); pH ABG 6.98 (7.35-7.45)
[2019-03-15 20:48] LABS: Fractionated Inspired Oxygen 0.21; HCO3 ABG 2 mmol/L (22-26); Oxygen Saturation ABG 96 % (95-100); TCO2 ABG 5 mmol/L (21-31)
[2019-03-15 20:58] LABS: Carbon Dioxide 5 mmol/L (22-32); Glucose 618 mg/dL (70-100)
[2019-03-15 21:14] LABS: Procalcitonin 0.12 ng/mL (<0.5)
[2019-03-15 21:16] LABS: Pregnancy Test Serum,Qual Negative (Negative)
[2019-03-15 21:20] LABS: Ethanol (ETOH) < 10 mg/dL
[2019-03-15 21:22] LABS: Thyroid Stimulating Hormone 2.64 uIU/mL (0.47-4.68)
[2019-03-15 21:36] VITALS: BP 140/91; PULSE 130; RESP 18
--- NOTE | 2019-03-15 21:37 | DI.CT.S_ITS ---
PROCEDURE: CT ABDOMEN PELVIS W CON INDICATIONS: Left-sided perinephric mass TECHNIQUE: After the administration of intravenous contrast, 5 mm thick sections acquired from the diaphragm to the symphysis. 5 mm coronal and sagittal reformats were acquired. For radiation dose reduction, the following was used: automated exposure control, adjustment of mA and/or kV according to patient size. COMPARISON: [facility], CT, CT CHEST ABD PEL W CON, 02/28/2019, 15:03. [facility], CT, CT ABDOMEN W CON, 03/09/2019, 9:55. [facility], CT, ABDOMEN/PELVIS WITH CONTRAST, 12/08/2013, 13:43. FINDINGS: Image quality: Excellent. ABDOMEN: Lung bases: Lung bases are clear. Heart size is normal. Solid organs: Liver is normal in size and enhancement. Gallbladder is unremarkable. Biliary system is non dilated. Pancreas enhances normally. Spleen is normal in size and enhancement. No adrenal nodules. Kidneys demonstrate normal size and enhancement. There is mild bilateral hydronephrosis and hydroureter, right greater than left. Peritoneum and bowel: Bowel loops demonstrate normal wall thickness and caliber. No free fluid or air. Nodes and vessels: No retroperitoneal or mesenteric adenopathy by size criteria. Aorta and inferior vena cava are normal in size. Miscellaneous: No ventral hernias. PELVIS: Genitourinary: Bladder is significantly distended. Miscellaneous: No inguinal hernias or adenopathy. Bones: No suspicious bony lesions. No vertebral body compression fractures. IMPRESSION: 1. Significant urinary bladder distention with mild bilateral hydronephrosis and hydroureters above. No visualized stone. The above findings are concordant with preliminary report. Dictated by: Alejandra Sanchez M.D. on 03/16/2019 at 10:00 Approved by: Alejandra Sanchez M.D. on 03/16/2019 at 10:27
[2019-03-15] MEDS: INSULIN REGULAR, HUMAN 100 UNIT in SODIUM CHLORIDE 0.9% 100 ML IV (21:49)
[2019-03-15] MEDS: methylPREDNISolone 125 MG/2 ML VIAL 40 MG IV (21:54)
[2019-03-15] MEDS: diphenhydrAMINE 50 MG/ML VIAL 25 MG IV (21:54)
[2019-03-15 21:56] LABS: Macrocytosis 1+; Platelet Estimate Increased on smear
[2019-03-15 21:59] LABS: C-Reactive Protein Quant 0.9 mg/dL (<1.0)
--- NOTE | 2019-03-15 22:14 | PC.NURSE ---
Per Dr. Peters, first NaCl 1L to be given as bolus and then second liter to be given at 150 mL/hr.
[2019-03-15] MEDS: SODIUM CHLORIDE 0.9% 1,000 ML 1000 ML IV (22:25)
[2019-03-15 22:26] LABS: Reflexed Lactate in 2 Hours Y
[2019-03-15 22:47] LABS: Bacteria Urine None Seen; WBC Urine None Seen (0-5/HPF)
[2019-03-15 22:49] LABS: Appearance Urine UA CLEAR; Bilirubin Urine UA NEGATIVE (NEGATIVE); Color Urine UA YELLOW; Glucose Urine UA 2+ g/dL (Negative); Ketones Urine UA 3+ (NEGATIVE); Leukocyte Esterase Urine UA NEGATIVE (NEGATIVE); Nitrite Urine UA NEGATIVE (Negative); Occult Blood Urine UA TRACE-LYSED (Negative); Protein Urine UA TRACE (Negative); Urobilinogen Urine UA 0.2 E.U./dL (0.2)
[2019-03-15] MEDS: HYDROMORPHONE 0.5 MG INJ IV (23:02)
--- NOTE | 2019-03-15 23:02 | PM.HP.1 ---
History of Present Illness History of Present Illness Date Patient Seen: 03/15/19 Time Patient Seen: 23:00 Chief complaint: States DKA Narrative: Ms. Sarabjit Jimenes is a 28-year-old female patient with a history significant for type 1 diabetes, migraines, irregular menstruation and prior pyelolithiasis who presents to the ER with complaints of generalized weakness, body aches restlessness, left flank pain and tachypnea. This patient states her pain from her previous pyelonephritis never completely resolved and has been gradually increasing since discharge. She has had associated development of abdominal pain and complaints are a tachypneic. The patient presents to the emergency room following having continuously elevated blood sugars and again developing DKA. Patient is a known type 1 diabetic with 3 admissions in the last month for DKA. She reports no nausea vomiting or changes in bowel habits her last bowel movement earlier today. She denies cold or flu symptoms, fever chills headaches or dizziness. She denies nasal congestion or sore throat. She reports no chest pain palpitations, no cough or wheezing. Abdominal pain is generalized but markedly tender left posterior flank. She reports no diarrhea constipation. She denies urinary frequency urgency or burning and no hematuria. The patient does not sense need to void. She states her last menstrual period was in July on control with norethindrone. She denies rashes or skin lesions. She is under the care of a new billiard table repairer providing the name of Dr. Gay at [facility] has since left the service in the patient has been reassigned to a another provider but does not have an appointment until April. The patient reports being compliant with Teseba 43 units at 11:00 a.m. daily, 8 units of parental insulin and correctional scale Humalog AC and HS. Upon arrival to the emergency department the patient was found be afebrile with temperature 97.7?, hypertensive pressure of 169/120, tachycardic 156, respirations of 30 saturating 100% on room air. An ABG is obtained finding a pH of 6.98, pCO2 of 8.6, PO2 of 119, H CO3 of 2 and base excess of -30. On CBC she has a white count of 11.1, hemoglobin of 14.0, hematocrit of 43.3 and platelets of 793. She has a sodium of 141, potassium of 4.7, magnesium 2.3 and phosphate of 7.3. Notably she has a CO of 5 in a BUN of 25 and a creatinine of 1.2. Her lactic acid was 2.6 and ketones are 15.9. TSH is found to be 2.64. Anion gap is calculated at 34. A CT of the abdomen is requested related to prior pyelonephritis and presentation of an increased creatinine of 1.2. CT the abdomen and pelvis with contrast is obtained finding considerable distention of the urinary bladder mild bilateral hydronephrosis and ureteral dilatation right greater than left without identification renal or ureteral stone. Post CT exam the patient voided 1200 cc with a postvoid bladder scan revealing an additional 100 cc's remaining in the bladder. The patient is admitted to the medicine service for recurrent DKA on insulin drip admitted to the ICU. Patient History Medical History DKA (diabetic ketoacidoses) (Resolved) History of pyelonephritis (Resolved) Irregular menstrual cycle (Acute) Migraine headache (Chronic) Nephrolithiasis (Resolved) Type 1 diabetes mellitus (Chronic) Surgical History History of ureter stent (Resolved) Status post laser lithotripsy of ureteral calculus (Acute) [place] teeth extracted (Acute) Family & Social History Family History Father In good health Mother Cardiac disease Social History: household members significant other,family Prior Living Arrangements House Safety & Behavioral: Feels Safe in Current Yes Environment Been Physically Hurt or No Threatened By a Person Suicidal Ideation Description None Suicide Plan Description No Plan Tobacco & Substance use: Smoking Status Never smoker alcohol intake never alcohol intake frequency holiday/special occasion Substance Use Type does not use Comment: The patient resides in [place] living in a single family home with her fiance. She describes hers father's as good and mother has cardiac problems. She has 1/2 sister which has a heart murmur. Occupation: Patient is presently not working. Smoking: Patient denies use of tobacco products Alcohol: Patient states very aware in very small amounts because of her diabetes. Substance use: The patient denies recreation pharmaceuticals, herbal or cannabis products. Advanced directives: The patient has no advanced directives, she states her wish to be FULL CODE. She designates her fiance Reggie to be her surrogate decision maker. Meds Home Medications and Allergies Home Medications Medication Instructions Recorded Confirmed Type Tresiba FlexTouch U-100 40 unit SUB-Q DAILY #15 ml 12/12/18 03/09/19 Rx glucose 4 gram PO Q15M PRN #30 tab 12/12/18 03/09/19 Rx Glucagon Emergency Kit (human) 1 mg SUBCUT DIRECTED 02/16/19 03/09/19 History cholecalciferol (vitamin D3) 2,000 unit PO DAILY 02/16/19 03/09/19 History [Vitamin D3] ergocalciferol (vitamin D2) 50,000 unit PO QWEEK 02/16/19 03/09/19 History [Vitamin D2] norethindrone (contraceptive) 0.35 mg PO DAILY 02/16/19 03/09/19 History [Tulana] Bacid 1 ea PO TIDWM #42 tab 03/02/19 03/09/19 Rx insulin lispro [Humalog KwikPen See Rx Instructions .ROUTE 03/10/19 03/09/19 Rx Insulin] .COMPLEX #0 ml Allergies Allergy/AdvReac Type Severity Reaction Status Date / Time abdalla [ABDALLA] Allergy Intermediate Hives, Verified 02/24/19 08:00 pruritus iodine [IODINE] Allergy Intermediate rash, itchy Verified 02/24/19 08:00 morphine Allergy Intermediate Difficulty Verified 02/24/19 08:00 Breathing shellfish derived Allergy Intermediate rash Verified 02/24/19 08:00 [SHELLFISH DERIVED] adhesive [ADHESIVE] Allergy Unknown tape Verified 02/24/19 08:00 latex [LATEX] Allergy Unknown Hives Verified 02/24/19 08:00 Review of Systems Review of Systems Narrative: All system reviewed and are unremarkable except as noted in the HPI above. Exam Vital Signs (past 8 hours): - 03/15/19 20:26 03/15/19 21:36 03/15/19 23:08 Temperature Pulse Rate 156 H 130 H 136 H Respiratory Rate 30 H 18 15 Blood Pressure 169/120 H Blood Pressure [Right Arm] 140/91 H 144/94 H Pulse Oximetry 100 98 03/15/19 23:55 Temperature 97.4 F L Pulse Rate 129 H Respiratory Rate 20 Blood Pressure 135/92 H Blood Pressure [Right Arm] Pulse Oximetry 100 Oxygen Delivery Method Room Air Narrative Exam Narrative: GENERAL APPEARANCE: well developed, slender female with a BMI of 20.8, hyperpneic, in moderate discomfort. HEENT: Normocephalic, PERRLA, conjunctiva clear, EOMs intact without nystagmus, no rhinorrhea, oral membranes are dry with dried secretions on teeth, oral cavity and posterior pharynx without erythema. NECK/THYROID: neck supple, no JVD, no thyromegaly, trachea midline. LYMPH NODES: no cervical or supraclavicular lymphadenopathy. SKIN: warm and dry, no suspicious lesions, no rashes, poor skin turgor HEART: regular rate and rhythm, S1-S2, no murmur, no rubs or gallops, brisk capillary refill, no edema LUNGS: clear to auscultation bilaterally, no coarseness crackles or wheezing, no cough present CHEST: Kussmaul's respiration pattern, symmetrical movement, no accessory muscle use, no pain to AP and lateral compression. ABDOMEN: Flat, generalized abdominal tenderness, no guarding or peritoneal signs, no organomegaly, left flank pain, hypoactive bowel tones. EXTREMITIES: moves all extremities, strength is 5/5 and symmetrical, no deformities or joint effusions. NEUROLOGIC: AAO x4, no focal neurologic deficits, sensation intact to light touch, hearing grossly normal to speech. PSYCH: alert, anxious, restless, cognitive function intact, poor eye contact, stable behavior Objective Labs Result Diagrams: 03/15/19 20:20 03/15/19 23:10 Labs: Laboratory Results - last 24 hr 03/15/19 03/15/19 03/15/19 20:20 20:20 20:20 WBC 11.1 H RBC 4.29 Hgb 14.0 Hct 43.3 MCV 101.0 H D MCH 32.7 MCHC 32.3 RDW 14.1 Plt Count 793 H Neut % (Auto) 76.5 H Lymph % (Auto) 17.7 L Gaston % (Auto) 4.0 Eos % (Auto) 0.0 L Baso % (Auto) 1.8 Neut # (Auto) 8500 H Lymph # (Auto) 2000 Gaston # (Auto) 400 Eos # (Auto) 0 Baso # (Auto) 200 H Platelet Estimate Increased on smear RBC Morphology See below Macrocytosis 1+ H ABG pH ABG pCO2 ABG pO2 ABG HCO3 ABG Total CO2 ABG O2 Saturation ABG Base Excess FiO2 Sodium 141 Potassium 4.7 Chloride 102 Carbon Dioxide 5 L* BUN 25 H Creatinine 1.20 H Estimated GFR 53.9 L BUN/Creatinine Ratio 20.8 Glucose 618 H* D Lactate Calcium 10.0 Phosphorus Magnesium Total Bilirubin 0.5 AST 17 ALT 24 Alkaline Phosphatase 217 H D C-Reactive Protein Total Protein 9.1 H Albumin 5.2 H Globulin 3.9 Albumin/Globulin Ratio 1.3 Lipase Procalcitonin 0.12 TSH Serum , Qual Negative Urine Color Urine Appearance Urine pH Ur Specific Bradford Urine Protein Urine Glucose (UA) Urine Ketones Urine Occult Blood Urine Nitrate Urine Bilirubin Urine Urobilinogen Ur Leukocyte Esterase Urine RBC Urine WBC Ur Squamous Epith Cells Urine Bacteria Urine Yeast Ur Culture Indicated? Ethyl Alcohol < 10 Ketones 03/15/19 03/15/19 03/15/19 20:20 20:20 20:20 WBC RBC Hgb Hct MCV MCH MCHC RDW Plt Count Neut % (Auto) Lymph % (Auto) Gaston % (Auto) Eos % (Auto) Baso % (Auto) Neut # (Auto) Lymph # (Auto) Gaston # (Auto) Eos # (Auto) Baso # (Auto) Platelet Estimate RBC Morphology Macrocytosis ABG pH ABG pCO2 ABG pO2 ABG HCO3 ABG Total CO2 ABG O2 Saturation ABG Base Excess FiO2 Sodium Potassium Chloride Carbon Dioxide BUN Creatinine Estimated GFR BUN/Creatinine Ratio Glucose Lactate 2.6 H Calcium Phosphorus 7.3 H D Magnesium 2.7 H Total Bilirubin AST ALT Alkaline Phosphatase C-Reactive Protein Total Protein Albumin Globulin Albumin/Globulin Ratio Lipase 258 Procalcitonin TSH 2.64 Serum , Qual Urine Color Urine Appearance Urine pH Ur Specific Bradford Urine Protein Urine Glucose (UA) Urine Ketones Urine Occult Blood Urine Nitrate Urine Bilirubin Urine Urobilinogen Ur Leukocyte Esterase Urine RBC Urine WBC Ur Squamous Epith Cells Urine Bacteria Urine Yeast Ur Culture Indicated? Ethyl Alcohol Ketones 15.90 H 03/15/19 03/15/19 03/15/19 20:20 20:30 22:34 WBC RBC Hgb Hct MCV MCH MCHC RDW Plt Count Neut % (Auto) Lymph % (Auto) Gaston % (Auto) Eos % (Auto) Baso % (Auto) Neut # (Auto) Lymph # (Auto) Gaston # (Auto) Eos # (Auto) Baso # (Auto) Platelet Estimate RBC Morphology Macrocytosis ABG pH 6.98 L* ABG pCO2 8.6 L* ABG pO2 119 H ABG HCO3 2 L ABG Total CO2 5 L ABG O2 Saturation 96 ABG Base Excess -30.0 L FiO2 0.21 Sodium Potassium Chloride Carbon Dioxide BUN Creatinine Estimated GFR BUN/Creatinine Ratio Glucose Lactate Calcium Phosphorus Magnesium Total Bilirubin AST ALT Alkaline Phosphatase C-Reactive Protein 0.9 Total Protein Albumin Globulin Albumin/Globulin Ratio Lipase Procalcitonin TSH Serum , Qual Urine Color Yellow Urine Appearance Clear Urine pH 5.0 Ur Specific Bradford 1.010 Urine Protein Trace H Urine Glucose (UA) 2+ H Urine Ketones 3+ H Urine Occult Blood Trace-lysed Urine Nitrate Negative Urine Bilirubin Negative Urine Urobilinogen 0.2 Ur Leukocyte Esterase Negative Urine RBC 0-1/hpf Urine WBC None seen Ur Squamous Epith Cells 0-1 /hpf Urine Bacteria None seen Urine Yeast 0-1/hpf Ur Culture Indicated? Cult not indicated Ethyl Alcohol Ketones 03/15/19 03/15/19 03/15/19 23:10 23:10 23:10 WBC RBC Hgb Hct MCV MCH MCHC RDW Plt Count Neut % (Auto) Lymph % (Auto) Gaston % (Auto) Eos % (Auto) Baso % (Auto) Neut # (Auto) Lymph # (Auto) Gaston # (Auto) Eos # (Auto) Baso # (Auto) Platelet Estimate RBC Morphology Macrocytosis ABG pH ABG pCO2 ABG pO2 ABG HCO3 ABG Total CO2 ABG O2 Saturation ABG Base Excess FiO2 Sodium 144 Potassium 5.6 H Chloride 109 H Carbon Dioxide 6 L* BUN 24 H Creatinine 1.20 H Estimated GFR 53.9 L BUN/Creatinine Ratio 20.0 Glucose 480 H D Lactate 1.9 Calcium 9.2 Phosphorus 6.2 H D Magnesium 2.2 Total Bilirubin AST ALT Alkaline Phosphatase C-Reactive Protein Total Protein Albumin Globulin Albumin/Globulin Ratio Lipase Procalcitonin TSH Serum , Qual Urine Color Urine Appearance Urine pH Ur Specific [place] Urine Protein Urine Glucose (UA) Urine Ketones Urine Occult Blood Urine Nitrate Urine Bilirubin Urine Urobilinogen Ur Leukocyte Esterase Urine RBC Urine WBC Ur Squamous Epith Cells Urine Bacteria Urine Yeast Ur Culture Indicated? Ethyl Alcohol Ketones Assessment & Plan Assessment & Plan narrative: This 28-year-old female who presents to the hospital for nausea with body aches and diabetic ketoacidosis with no identified infective etiology. 1. Acute diabetic ketoacidosis, without coma, secondary to type 1 diabetes, present on admission, active. -patient discharged from the hospital 5 days ago on 03/10/2019 following an 8 day admission for DKA and evaluation and treatment of pyelonephritis. -this is the 3rd admission within 1 month, per report the patient has had better dietary control. -acidotic on admission with pH of 6.98, pCO2 of 8.6, PO2 119, H CO3 2, base excess -30. -No source of infection identified, afebrile, procalcitonin-0.12, CRP -0.9, white blood cell count of 11.1, lactic acid 2.6 secondary to dehydration. Recheck lactic acid. -DKA protocol with insulin drip, fluid replacement with normal saline transitioning to half-normal saline and then D5/0.45% saline saline when blood sugars less than 250. -Monitor electrolytes including magnesium and phosphorus every 4 hours and continue as needed until anion gap closes, replete as needed. -will transition the patient back to Treseba 43 units daily, 8 units Humalog prandial insulin and correctional insulin when anion gap closes. 2. Acute anion gap metabolic acidosis, present on admission. -acidotic on admission with pH of 6.98, pCO2 of 8.6, PO2 119, H CO3 2, base excess -30. -anion gap is calculated at 34. -Continue to treat DKA, no identified underlying cause other than noncompliance and dietary indiscretion. 3. Gastroparesis, chronic and episodic, present on admission, active -patient with epigastric abdominal pain on palpation, distended stomach noted on CT scan. Patient reports to S appetite but denies nausea vomiting. Hypoactive bowel tones. -gastroparesis secondary to uncontrolled diabetes. Patient is NPO except ice chips and meds. -patient with poor p.o. intake patient received 1 L normal saline in the emergency department, ordered 2nd L normal saline now. -0.45% saline at 200 cc/hour. -Reglan as needed for nausea. 4. Acute neurogenic bladder secondary to neuropathy, present on admission, active. -patient with large distended bladder noted on CT scan, patient with no urge to void. -when patient prompted patient voided 1200 cc. -will perform timed voiding every 2-4 hours. 5. Flank pain, mild hydronephrosis, present on admission, active. -patient treated on prior admission for pyelonephritis with Zosyn during admission and Augmentin on discharge for pansensitive E coli. -patient also with history of fungal infection of the urinary tract involving the kidney with recent course of fluconazole. -abdominal and pelvis CT finds bilateral hydronephrosis with ureteral dilatation, marked distention of bladder without evidence of stone or obstruction. -patient has received hydromorphone in the emergency department, will continue 0.5 mg hydromorphone IV q.6 hours as needed for pain. -pain is never resolved following prior admission, will obtain abdominal pelvis MRI. 6. Acute kidney injury, -multifactorial including neurogenic bladder with obstructive uropathy and acute dehydration. -patient with elevated creatinine at 1.2, baseline creatinine is 0.6-0.7. -patient is rehydrated to improve renal perfusion -timed voiding as noted above -will trend renal function 6. Medical noncompliance, active -the patient admits to history of dietary indiscretions, concern related to severity of illness occurring within 5 days discharge and medication compliance -reinforce need for routine blood sugar checks, corrected insulin management and appropriate diet. -dietitian to consult, re-educate and reinforce dietary management -this is the 3rd admission within 1 month, request social work consult, consider psychiatric evaluation for recurrent noncompliant behaviors causing injury. VTE prophylaxis: Bilateral SCDs, subcutaneous Lovenox Diet: NPO except septal ice chips, will advance when anion gap closes. The patient is admitted to the hospital as an inpatient to ICU related to severity of her symptoms and need for IV therapy and frequency of interventions. She is admitted as an inpatient with expected length of stay to be greater than 2 midnights. DM Type I (uncontrolled) chronic condition, present on admission, active - A1C > 14 on 02/17/2019 - Multiple recurrent DKA w/ hospital admission and treatment - ACCREDITATION COORDINATOR regimen consists of Tresiba and Humalon per SSI. Prior documented h/o non-adherence w/ insulin regimen. Holding for now, treatign DKA w/ insulin gtt until AG is closed. - Follows w/ endocrinology, has an appointment scheduled on Sat (02/27/19) Epigastric discomfort / abdominal pain, present on admission, active - Suspected to be in the setting of metabolic acidosis, sever hypovolemia - Check Trop - EKG non-ischemic - Dilaudid 0.5 mg IV Q6h prn
[2019-03-15 23:04] LABS: Culture Indicated Urine Cult Not Indicated; RBC Urine 0-1/HPF (0-5/HPF); Squamous Epithelial Cell Urine 0-1 /HPF (0-5/HPF)
[2019-03-15 23:08] VITALS: BP 144/94; PULSE 136; RESP 15; O2SAT 98
--- NOTE | 2019-03-15 23:08 | PC.NURSE ---
POC glucose 428, Omari Spicer APPROVER called to confirm if changes needed to insulin drip. No new orders at this time. rate remains 5 units/hr. Lab in to draw repeat BMP.
[2019-03-15 23:27] LABS: Blood Urea Nitrogen 24 mg/dL (7-17); Calcium 9.2 mg/dL (8.4-10.2); Chloride 109 mmol/L (98-107); Estimated Glomerular Filt Rate 53.9 mL/min (>60); Glucose 480 mg/dL (70-100); HEMOLYSIS < 15 (0-50); Lactate 2HR (Lactic Acid Rflx) 1.9 mmol/L (0.7-2.1); Sodium 144 mmol/L (137-145)
[2019-03-15 23:28] LABS: Potassium 5.6 mmol/L (3.4-5.1)
[2019-03-15 23:30] LABS: Carbon Dioxide 6 mmol/L (22-32)
[2019-03-15 23:40] VITALS: BMI 20.7
[2019-03-15 23:55] VITALS: BP 135/92; PULSE 129; RESP 20; TEMP 36.3; O2SAT 100
[2019-03-16] VITALS (14 sets, daily range): BP systolic 94–123; BP diastolic 49–70; PULSE 88–115; RESP 10–21; TEMP 36.2–37.1; O2SAT 96–100
[2019-03-16 00:05] LABS: Magnesium 2.2 mg/dL (1.6-2.3); Phosphorous 6.2 mg/dL (2.5-4.5)
[2019-03-16] MEDS: SODIUM CHLORIDE 0.9% 1,000 ML 1000 ML IV (00:30)
--- NOTE | 2019-03-16 00:30 | PC.NURSE ---
Addendum entered by Zhen Wilhelm R.N. 03/16/19 07:16: 0710: CBG 189. No change to insulin drip rate. Labs drawn from [facility] and sent to lab. Addendum entered by Zhen Wilhelm R.N. 03/16/19 06:17: 0600 (cont): ABG obtained by RT at 0452. SHARYN Yo aware of results. Addendum entered by Zhen Wilhelm R.N. 03/16/19 06:13: Addendum entered by Zhen Wilhelm R.N. 03/16/19 06:10: 0600: CBG 179. Insulin drip increased to 3.6cc/hr = 3.6U/hr. 0610: Pt having 7/10 generalized pain. Medicated with Dilaudid 0.5mg IV. Addendum entered by Zhen Wilhelm R.N. 03/16/19 05:17: 0510: CBG 171. Insulin drip increased to 2.25cc/hr = 2.25U/hr per SHARYN Yo (instead of 3.36U/hr). Addendum entered by Zhen Wilhelm R.N. 03/16/19 04:18: 0400: CBG 140. Insulin drip remains at 0.9cc/hr = 0.9U/hr. Addendum entered by Zhen Wilhelm R.N. 03/16/19 03:13: 0300: CBG 137. Insullin drip decreased to 0.9cc/hr = 0.9U/hr. CMP, MG, Phos drawn from [facility] and sent to lab. Pt awake, calm, resting in bed. Addendum entered by Zhen Wilhelm R.N. 03/16/19 02:49: 0245: Bladder scan for post void residual (voided 900cc) showed 17cc residual urine in bladder. Addendum entered by Zhen Wilhelm R.N. 03/16/19 02:41: 0205 CBG 160. Insulin drip decreased to 2.25U/hr. IV fluid changed to D5 1/2NS @ 150cc/hr as ordered. 0235: Pt awake, states she needs to urinate. Assisted up to bedside commode, voided. Addendum entered by Zhen Wilhelm R.N. 03/16/19 01:36: 0030: NS fluid bolus started via [facility] IV. 0100: CBG 264. Insulin drip decreased to 4.5cc/hr = 4.5U/hr. Pt sleeping. Reggie resting at bedside. 0130: NS fluid bolus finished. 0.45NS started at 200cc/hr. Original Note: Service Transformer Repair Supervisor Note: 2340: Admitted to ICU room 101 from ER. Pt is awake, alert, and oriented X3. She has NS infusing at 150cc/hr, and regular Insulin infusing at 5cc/hr = 5U/hr. She recently voided in ER and denies urge to urinate at this time. Pt recently medicated for pain with Dilaudid in ER. Mother accompanied pt from ER. 0000: [facility] here to place PICC or [facility]line IV. Procedure in progress. 0020: [facility]line double lumen in place in lt upper arm and pc maintenance technician states the tip of the catheter is in the Subclavian vein and located mid-clavicular. Pt anxious and teary during procedure. Significant other Reggie arrived and coordinator notified that he requests to stay the night with pt.
[2019-03-16] MEDS: SODIUM CHLORIDE 0.45% 1,000 ML 200 ML IV (01:28)
[2019-03-16] MEDS: HYDROMORPHONE 0.5 MG INJ IV ×2 (02:06→06:06)
[2019-03-16] MEDS: FAMOTIDINE 20 MG/50 ML PIGGYBACK 200 MG IV ×2 (02:07→12:06)
[2019-03-16] MEDS: DEXTROSE 5%-0.45% NS 1,000 ML 150 ML IV ×2 (02:12→08:41)
[2019-03-16 03:29] LABS: Phosphorous 3.1 mg/dL (2.5-4.5)
[2019-03-16 03:30] LABS: BUN Creatinine Ratio 27.5 (6-22); Blood Urea Nitrogen 22 mg/dL (7-17); Calcium 8.8 mg/dL (8.4-10.2); Chloride 120 mmol/L (98-107); Estimated Glomerular Filt Rate > 60.0 mL/min (>60); Glucose 131 mg/dL (70-100); HEMOLYSIS < 15 (0-50); Sodium 147 mmol/L (137-145)
[2019-03-16 03:36] LABS: Carbon Dioxide 9 mmol/L (22-32)
[2019-03-16 05:16] LABS: HCO3 ABG 7 mmol/L (22-26); Oxygen Saturation ABG 98 % (95-100); PCO2 ABG 19.8 mmHg (35-45); PO2 ABG 122 mmHg (80-100); TCO2 ABG 8 mmol/L (21-31); pH ABG 7.17 (7.35-7.45)
[2019-03-16 05:17] LABS: Fractionated Inspired Oxygen 0.21
[2019-03-16 07:39] LABS: Add Manual Diff / Slide Review NO; Basophils Absolute Auto 100 /uL (0-100); Basophils Percent Auto 0.5 % (0-2); Eosinophils Absolute Auto 0 /uL (0-450); Hematocrit 32.5 % (36-46); Lymphocytes Absolute Auto 1000 /uL (1100-4500); Lymphocytes Percent Auto 5.4 % (25-40); Mean Corpuscular HGB Conc 33.7 % (30-36); Mean Corpuscular Hemoglobin 32.5 PG (26-34); Mean Corpuscular Volume 96.6 fL (80-100); Monocytes Absolute Auto 400 /uL (0-900); Monocytes Percent Auto 2.3 % (3-14); Neutrophils Absolute Auto 16700 /uL (1500-7000); Neutrophils Percent Auto 91.8 % (50-75); Platelet Count 514 X10^3/uL (150-400); Red Blood Cell Count 3.37 X10^6/uL (4.0-5.2); Red Cell Distribution Width 13.7 % (11.6-14.8); White Blood Cell Count 18.2 X10^3/uL (4.5-11.0)
[2019-03-16 07:51] LABS: Blood Urea Nitrogen 20 mg/dL (7-17); Calcium 8.8 mg/dL (8.4-10.2); Carbon Dioxide 11 mmol/L (22-32); Chloride 117 mmol/L (98-107); Estimated Glomerular Filt Rate > 60.0 mL/min (>60); Glucose 179 mg/dL (70-100); HEMOLYSIS < 15 (0-50); Phosphorous 3.1 mg/dL (2.5-4.5); Potassium 3.6 mmol/L (3.4-5.1); Sodium 144 mmol/L (137-145)
[2019-03-16] MEDS: ACETAMINOPHEN 325 MG TABLET 650 MG PO ×2 (08:21→16:52)
[2019-03-16] MEDS: POTASSIUM CHLORIDE 40 MEQ in SODIUM CHLORIDE 0.9% 500 ML 130 ML IV ×2 (08:43→22:24)
[2019-03-16] MEDS: HYDROMORPHONE 0.5 MG INJ 1 MG IV ×2 (09:09→12:07)
[2019-03-16 09:10] LABS: Procalcitonin 0.39 ng/mL (<0.5)
--- NOTE | 2019-03-16 09:26 | PC.NURSE ---
0745- Pt resting in bed. Responds to verbal stimuli and answering questions appropriately with clear speech. Pt able to void 750 ML urine. PVR showing 2 ML. Educated pt to order for scheduled voiding. She verbalizes understanding and is agreeable. Continuing on insulin gtt at 3.6 units/hr. VSS. Pt c/o generalized pain 7/10 and cries with any movement. States pain is all over and is not localized to any specific area. Provided scheduled tylenol as ordered and educated to current med regimen. Pt states ineffective but would like to try to sleep at this time. Will address with hospitalist on rounds.
--- NOTE | 2019-03-16 09:50 | P.PN_ITS ---
Subjective Subjective Date Patient Seen: 03/16/19 Time Patient Seen: 09:50 Interval history: Sarabjit Jimenes is a 29-year-old female with past medical history of type 1 diabetes who was admitted with DKA. This is her 3rd admission for DKA in the past month. Her infectious workup has been unremarkable. Her CT abdomen pelvis with contrast showed marked bladder distention with bilateral hydronephrosis, however she had not voided. This morning she has voided and has a postvoid residual of 2 cc only. She was instructed to continue frequent voluntary voids approximately every 2-4 hours. This morning she complains of still feeling ill, with predominantly left-sided flank pain but no dysuria, nausea, vomiting. She stated that she was hungry this morning. Her anion gap remains elevated this morning and her bicarb remains elevated as well, so she needs to continue on her insulin infusion at this time. Exam Vital Signs (past 8 hours): - 03/16/19 02:00 03/16/19 03:00 03/16/19 04:00 Temperature 97.1 F L Pulse Rate 108 H 101 H 107 H Respiratory Rate 21 15 10 L Blood Pressure 94/67 111/69 114/57 L Pulse Oximetry 100 97 03/16/19 05:00 03/16/19 06:00 03/16/19 07:01 Temperature Pulse Rate 100 H 111 H 107 H Respiratory Rate 19 12 13 Blood Pressure 123/69 118/56 L 115/56 L Pulse Oximetry 03/16/19 08:00 03/16/19 09:00 Temperature 98.8 F Pulse Rate 110 H 108 H Respiratory Rate 15 15 Blood Pressure 112/59 L 103/53 L Pulse Oximetry 97 99 Oxygen Delivery Method Room Air Oxygen Flow Rate 0 Narrative Exam Narrative: GENERAL APPEARANCE: Weak and pale appearing young female, appears fatigued and drowsy. SKIN: Inspection of the skin reveals no rashes, ulcerations or petechiae. HEENT: The sclerae were anicteric and conjunctivae were pink and moist. Extraocular movements were intact and pupils were equal, round with normal accommodation. External inspection of the ears and nose showed no scars, lesion s, or masses. Lips, teeth, and gums showed normal mucosa. The oral mucosa, hard and soft palate, tongue and posterior pharynx were unremarkable. NECK: Supple and symmetric. There was no thyroid enlargement, and no tenderness, or masses were felt. CHEST: Normal AP diameter and normal contour without any kyphoscoliosis. LUNGS: Auscultation of the lungs revealed no wheezes, rhonchi, or rales. CARDIOVASCULAR: There was a tachycardic rate and regular rhythm without any murmurs, gallops, rubs. Peripheral pulses were 2+ and symmetric. ABDOMEN: soft, tenderness more prominent bilateral lower quadrant and L flank. MUSCULOSKELETAL: There was no tenderness or effusions noted. Muscle strength and tone were normal. EXTREMITIES: No cyanosis, clubbing or edema. NEUROLOGIC: Alert and oriented x 3. Strength is diminished from baseline but +5/5 and no focal deficits. Objective Imaging CT scan - abdomen: Radiologist's impression: marked bladder distension with bilateral hydronephrosis and ureteral dilation. Labs Result Diagrams: 03/16/19 07:00 03/16/19 07:00 Labs: Laboratory Results - last 24 hr 03/15/19 03/15/19 03/15/19 20:20 20:20 20:20 WBC 11.1 H RBC 4.29 Hgb 14.0 Hct 43.3 MCV 101.0 H D MCH 32.7 MCHC 32.3 RDW 14.1 Plt Count 793 H Neut % (Auto) 76.5 H Lymph % (Auto) 17.7 L [place] % (Auto) 4.0 Eos % (Auto) 0.0 L Baso % (Auto) 1.8 Neut # (Auto) 8500 H Lymph # (Auto) 2000 [place] # (Auto) 400 Eos # (Auto) 0 Baso # (Auto) 200 H Platelet Estimate Increased on smear RBC Morphology See below Macrocytosis 1+ H ABG pH ABG pCO2 ABG pO2 ABG HCO3 ABG Total CO2 ABG O2 Saturation ABG Base Excess FiO2 Sodium 141 Potassium 4.7 Chloride 102 Carbon Dioxide 5 L* BUN 25 H Creatinine 1.20 H Estimated GFR 53.9 L BUN/Creatinine Ratio 20.8 Glucose 618 H* D Lactate Calcium 10.0 Phosphorus Magnesium Total Bilirubin 0.5 AST 17 ALT 24 Alkaline Phosphatase 217 H D C-Reactive Protein Total Protein 9.1 H Albumin 5.2 H Globulin 3.9 Albumin/Globulin Ratio 1.3 Lipase Procalcitonin 0.12 TSH Serum , Qual Negative Urine Color Urine Appearance Urine pH Ur Specific [place] Urine Protein Urine Glucose (UA) Urine Ketones Urine Occult Blood Urine Nitrate Urine Bilirubin Urine Urobilinogen Ur Leukocyte Esterase Urine RBC Urine WBC Ur Squamous Epith Cells Urine Bacteria Urine Yeast Ur Culture Indicated? Nasal Screen MRSA (PCR) Ethyl Alcohol < 10 Ketones 03/15/19 03/15/19 03/15/19 20:20 20:20 20:20 WBC RBC Hgb Hct MCV MCH MCHC RDW Plt Count Neut % (Auto) Lymph % (Auto) [place] % (Auto) Eos % (Auto) Baso % (Auto) Neut # (Auto) Lymph # (Auto) [place] # (Auto) Eos # (Auto) Baso # (Auto) Platelet Estimate RBC Morphology Macrocytosis ABG pH ABG pCO2 ABG pO2 ABG HCO3 ABG Total CO2 ABG O2 Saturation ABG Base Excess FiO2 Sodium Potassium Chloride Carbon Dioxide BUN Creatinine Estimated GFR BUN/Creatinine Ratio Glucose Lactate 2.6 H Calcium Phosphorus 7.3 H D Magnesium 2.7 H Total Bilirubin AST ALT Alkaline Phosphatase C-Reactive Protein Total Protein Albumin Globulin Albumin/Globulin Ratio Lipase 258 Procalcitonin TSH 2.64 Serum , Qual Urine Color Urine Appearance Urine pH Ur Specific [place] Urine Protein Urine Glucose (UA) Urine Ketones Urine Occult Blood Urine Nitrate Urine Bilirubin Urine Urobilinogen Ur Leukocyte Esterase Urine RBC Urine WBC Ur Squamous Epith Cells Urine Bacteria Urine Yeast Ur Culture Indicated? Nasal Screen MRSA (PCR) Ethyl Alcohol Ketones 15.90 H 03/15/19 03/15/19 03/15/19 20:20 20:30 22:34 WBC RBC Hgb Hct MCV MCH MCHC RDW Plt Count Neut % (Auto) Lymph % (Auto) [place] % (Auto) Eos % (Auto) Baso % (Auto) Neut # (Auto) Lymph # (Auto) [place] # (Auto) Eos # (Auto) Baso # (Auto) Platelet Estimate RBC Morphology Macrocytosis ABG pH 6.98 L* ABG pCO2 8.6 L* ABG pO2 119 H ABG HCO3 2 L ABG Total CO2 5 L ABG O2 Saturation 96 ABG Base Excess -30.0 L FiO2 0.21 Sodium Potassium Chloride Carbon Dioxide BUN Creatinine Estimated GFR BUN/Creatinine Ratio Glucose Lactate Calcium Phosphorus Magnesium Total Bilirubin AST ALT Alkaline Phosphatase C-Reactive Protein 0.9 Total Protein Albumin Globulin Albumin/Globulin Ratio Lipase Procalcitonin TSH Serum , Qual Urine Color Yellow Urine Appearance Clear Urine pH 5.0 Ur Specific [place] 1.010 Urine Protein Trace H Urine Glucose (UA) 2+ H Urine Ketones 3+ H Urine Occult Blood Trace-lysed Urine Nitrate Negative Urine Bilirubin Negative Urine Urobilinogen 0.2 Ur Leukocyte Esterase Negative Urine RBC 0-1/hpf Urine WBC None seen Ur Squamous Epith Cells 0-1 /hpf Urine Bacteria None seen Urine Yeast 0-1/hpf Ur Culture Indicated? Cult not indicated Nasal Screen MRSA (PCR) Ethyl Alcohol Ketones 03/15/19 03/15/19 03/15/19 23:10 23:10 23:10 WBC RBC Hgb Hct MCV MCH MCHC RDW Plt Count Neut % (Auto) Lymph % (Auto) [place] % (Auto) Eos % (Auto) Baso % (Auto) Neut # (Auto) Lymph # (Auto) [place] # (Auto) Eos # (Auto) Baso # (Auto) Platelet Estimate RBC Morphology Macrocytosis ABG pH ABG pCO2 ABG pO2 ABG HCO3 ABG Total CO2 ABG O2 Saturation ABG Base Excess FiO2 Sodium 144 Potassium 5.6 H Chloride 109 H Carbon Dioxide 6 L* BUN 24 H Creatinine 1.20 H Estimated GFR 53.9 L BUN/Creatinine Ratio 20.0 Glucose 480 H D Lactate 1.9 Calcium 9.2 Phosphorus 6.2 H D Magnesium 2.2 Total Bilirubin AST ALT Alkaline Phosphatase C-Reactive Protein Total Protein Albumin Globulin Albumin/Globulin Ratio Lipase Procalcitonin TSH Serum , Qual Urine Color Urine Appearance Urine pH Ur Specific [place] Urine Protein Urine Glucose (UA) Urine Ketones Urine Occult Blood Urine Nitrate Urine Bilirubin Urine Urobilinogen Ur Leukocyte Esterase Urine RBC Urine WBC Ur Squamous Epith Cells Urine Bacteria Urine Yeast Ur Culture Indicated? Nasal Screen MRSA (PCR) Ethyl Alcohol Ketones 03/16/19 03/16/19 03/16/19 00:20 03:00 03:00 WBC RBC Hgb Hct MCV MCH MCHC RDW Plt Count Neut % (Auto) Lymph % (Auto) [place] % (Auto) Eos % (Auto) Baso % (Auto) Neut # (Auto) Lymph # (Auto) [place] # (Auto) Eos # (Auto) Baso # (Auto) Platelet Estimate RBC Morphology Macrocytosis ABG pH ABG pCO2 ABG pO2 ABG HCO3 ABG Total CO2 ABG O2 Saturation ABG Base Excess FiO2 Sodium 147 H Potassium 4.0 D Chloride 120 H Carbon Dioxide 9 L* BUN 22 H Creatinine 0.80 Estimated GFR > 60.0 BUN/Creatinine Ratio 27.5 H Glucose 131 H D Lactate Calcium 8.8 Phosphorus 3.1 D Magnesium 2.0 Total Bilirubin AST ALT Alkaline Phosphatase C-Reactive Protein Total Protein Albumin Globulin Albumin/Globulin Ratio Lipase Procalcitonin TSH Serum , Qual Urine Color Urine Appearance Urine pH Ur Specific [place] Urine Protein Urine Glucose (UA) Urine Ketones Urine Occult Blood Urine Nitrate Urine Bilirubin Urine Urobilinogen Ur Leukocyte Esterase Urine RBC Urine WBC Ur Squamous Epith Cells Urine Bacteria Urine Yeast Ur Culture Indicated? Nasal Screen MRSA (PCR) Negative for mrsa Ethyl Alcohol Ketones 03/16/19 03/16/19 03/16/19 04:52 07:00 07:00 WBC 18.2 H D RBC 3.37 L Hgb 11.0 L Hct 32.5 L MCV 96.6 D MCH 32.5 MCHC 33.7 RDW 13.7 Plt Count 514 H Neut % (Auto) 91.8 H Lymph % (Auto) 5.4 L [place] % (Auto) 2.3 L Eos % (Auto) 0.0 L Baso % (Auto) 0.5 Neut # (Auto) 27264 H Lymph # (Auto) 1000 L [place] # (Auto) 400 Eos # (Auto) 0 Baso # (Auto) 100 Platelet Estimate RBC Morphology Macrocytosis ABG pH 7.17 L* ABG pCO2 19.8 L* ABG pO2 122 H ABG HCO3 7 L ABG Total CO2 8 L ABG O2 Saturation 98 ABG Base Excess -21.0 L FiO2 0.21 Sodium 144 Potassium 3.6 Chloride 117 H Carbon Dioxide 11 L BUN 20 H Creatinine 0.80 Estimated GFR > 60.0 BUN/Creatinine Ratio 25.0 H Glucose 179 H Lactate Calcium 8.8 Phosphorus Magnesium 2.0 Total Bilirubin AST ALT Alkaline Phosphatase C-Reactive Protein Total Protein Albumin Globulin Albumin/Globulin Ratio Lipase Procalcitonin TSH Serum , Qual Urine Color Urine Appearance Urine pH Ur Specific [place] Urine Protein Urine Glucose (UA) Urine Ketones Urine Occult Blood Urine Nitrate Urine Bilirubin Urine Urobilinogen Ur Leukocyte Esterase Urine RBC Urine WBC Ur Squamous Epith Cells Urine Bacteria Urine Yeast Ur Culture Indicated? Nasal Screen MRSA (PCR) Ethyl Alcohol Ketones 03/16/19 03/16/19 07:00 07:00 WBC RBC Hgb Hct MCV MCH MCHC RDW Plt Count Neut % (Auto) Lymph % (Auto) [place] % (Auto) Eos % (Auto) Baso % (Auto) Neut # (Auto) Lymph # (Auto) [place] # (Auto) Eos # (Auto) Baso # (Auto) Platelet Estimate RBC Morphology Macrocytosis ABG pH ABG pCO2 ABG pO2 ABG HCO3 ABG Total CO2 ABG O2 Saturation ABG Base Excess FiO2 Sodium Potassium Chloride Carbon Dioxide BUN Creatinine Estimated GFR BUN/Creatinine Ratio Glucose Lactate Calcium Phosphorus 3.1 Magnesium Total Bilirubin AST ALT Alkaline Phosphatase C-Reactive Protein Total Protein Albumin Globulin Albumin/Globulin Ratio Lipase Procalcitonin 0.39 TSH Serum , Qual Urine Color Urine Appearance Urine pH Ur Specific [place] Urine Protein Urine Glucose (UA) Urine Ketones Urine Occult Blood Urine Nitrate Urine Bilirubin Urine Urobilinogen Ur Leukocyte Esterase Urine RBC Urine WBC Ur Squamous Epith Cells Urine Bacteria Urine Yeast Ur Culture Indicated? Nasal Screen MRSA (PCR) Ethyl Alcohol Ketones Assessment & Plan Assessment & Plan narrative: This 28-year-old female who presents to the hospital for nausea with body aches and diabetic ketoacidosis with no identified infective etiology. 1. Acute diabetic ketoacidosis, without coma, secondary to type 1 diabetes, present on admission, active. -patient discharged from the hospital on 03/10/2019 following an 8 day admission for DKA and evaluation and treatment of pyelonephritis. -this is the 3rd admission within 1 month, per report the patient has had better dietary control. -acidotic on admission with pH of 6.98, pCO2 of 8.6, PO2 119, H CO3 2, base excess -30. -No source of infection identified, afebrile, procalcitonin-0.12, CRP -0.9, white blood cell count of 11.1, lactic acid 2.6 secondary to dehydration which has improved. Leukocytosis did increase to 18 today, however this can be reactive and she is without other evidence of infection at this time. -DKA protocol with insulin drip, fluid replacement with normal saline transitioning to half-normal saline and then D5/0.45% saline saline when blood s ugars less than 250. -Monitor electrolytes including magnesium and phosphorus every 4 hours and con tinue as needed until anion gap closes, replete as needed. -will transition the patient back to [place] 43 units daily, 8 units Humalog prandial insulin and correctional insulin when anion gap closes and bicarb level is consistently above 15. Patient during previous admissions has a prolonged NAGMA following DKA. 2. Acute anion gap metabolic acidosis, present on admission. -acidotic on admission with pH of 6.98, pCO2 of 8.6, PO2 119, H CO3 2, base excess -30. -anion gap is calculated at 34 on admission, improved to 16 on most recent labs after insulin infusion. -Continue to treat DKA, no identified underlying cause other than noncompliance and dietary indiscretion. See further discussion below. 3. Gastroparesis, chronic and episodic, present on admission, active -patient with epigastric abdominal pain on palpation, distended stomach noted on CT scan. Patient reports decreased appetite but denies nausea vomiting. Hypoactive bowel tones. -gastroparesis secondary to uncontrolled diabetes. Patient is NPO except ice chips and meds. -patient with poor p.o. intake patient received 1 L normal saline in the emergency department, ordered 2nd L normal saline now. -0.45% saline at 200 cc/hour. -Reglan as needed for nausea. 4. Acute neurogenic bladder secondary to neuropathy, present on admission, improved. -patient with large distended bladder noted on CT scan, patient with no urge to void. -when patient prompted patient voided 1200 cc. -continue timed voiding every 2-4 hours. -will need urology follow up for diabetic cystopathy. 5. Flank pain, mild hydronephrosis, present on admission, active. -patient treated on prior admission for pyelonephritis with Zosyn during admission and Augmentin on discharge for pansensitive E coli. -patient also with history of fungal infection of the urinary tract involving the kidney with recent course of fluconazole. -abdominal and pelvis CT finds bilateral hydronephrosis with ureteral dilatation, marked distention of bladder without evidence of stone or obstruction. -patient has received hydromorphone in the emergency department, will continue 1.0 mg hydromorphone IV q.3 hours as needed for pain. -consider additional imaging after voiding to see if there is persistent dilatation leading to pain if no improvement in her pain is seen. 6. Acute kidney injury, improved -multifactorial including neurogenic bladder with obstructive uropathy and acute dehydration. -patient with elevated creatinine at 1.2 on admission, improved to 0.8 today, baseline creatinine is 0.6-0.7. -timed voiding as noted above -will continue to trend renal function -patient continues of IVF at this time for treatment of DKA. Lactate has improve d from 2.6 to 1.9. 7. Medical noncompliance, active -the patient admits to history of dietary indiscretions, concern related to severity of illness occurring within 5 days discharge and medication compliance -reinforce need for routine blood sugar checks, corrected insulin management and appropriate diet. -dietitian to consult, re-educate and reinforce dietary management -this is the 3rd admission within 1 month, request social work consult, will discuss with patient possible non-compliance issues or if there is underlying depression or other underlying psychiatric issue leading to frequent DKA admissions and likely non-compliance when she is feeling improved and DKA has resolved. VTE prophylaxis: Bilateral SCDs, subcutaneous Lovenox Diet: NPO except septal ice chips, will advance when off of insulin infusion. I spent 35 minutes providing critical care management this patient. This excludes time spent in performing separately billed procedures.
[2019-03-16 11:35] LABS: BUN Creatinine Ratio 25.7 (6-22); Blood Urea Nitrogen 18 mg/dL (7-17); Calcium 8.6 mg/dL (8.4-10.2); Carbon Dioxide 16 mmol/L (22-32); Chloride 118 mmol/L (98-107); Estimated Glomerular Filt Rate > 60.0 mL/min (>60); Glucose 147 mg/dL (70-100); HEMOLYSIS < 15 (0-50); Magnesium 1.9 mg/dL (1.6-2.3); Sodium 141 mmol/L (137-145)
[2019-03-16] MEDS: Insulin Degludec [Tresiba Flextouch U-100] 43 EACH SUBCUT (12:06)
[2019-03-16] MEDS: HYDROMORPHONE 1 MG INJ IV ×3 (14:59→20:52)
[2019-03-16 15:31] LABS: Phosphorous 3.7 mg/dL (2.5-4.5)
[2019-03-16 15:32] LABS: Blood Urea Nitrogen 16 mg/dL (7-17); Calcium 8.7 mg/dL (8.4-10.2); Carbon Dioxide 13 mmol/L (22-32); Chloride 117 mmol/L (98-107); Estimated Glomerular Filt Rate > 60.0 mL/min (>60); Glucose 173 mg/dL (70-100); HEMOLYSIS 21 (0-50); Magnesium 1.9 mg/dL (1.6-2.3); Potassium 4.3 mmol/L (3.4-5.1); Sodium 139 mmol/L (137-145)
[2019-03-16] MEDS: KETOROLAC 30 MG/ML VIAL IV ×2 (16:53→22:23)
--- NOTE | 2019-03-16 17:08 | CM.DANOTE ---
DCP Assessment: EMR reviewed: Patient is a 29 yr old female with uncontrolled type 1 DM patient was admitted through the ED for DKA. Patient doesnt currently have a PCP in the process of changing providers has an appointment with [facility] residency clinic on SaturdayMar 18. CM/RN met with patient at the bedside and explained CM role. Patient was in a large amount of pain at the time of CM visit which cut short CM visit. Patient was alert and oriented at the time of visit but with a flat affect. Patient currently lives with her nina [place] in [facility] in a 1 bedroom appartment. Patient at base line is I with all ADL's. Cm asked patient if she has been feeling depressed or had any thoughts of hurting herself. Patient stated she does feel depressed alot and has had thought of hurting herself but doesn't have a plan and is not currently feeling like hurting herself. Patient has had 9 ICU inpatient stays in the last 12 months for DKA or DM related medical issues. CM/RN asked if patient was taking her DM medication daily as prescribed and stated she was. CM asked patient if she has ever had an insulin pump. patient stated that she went to her electrical engineering intern for a work up for one and it was determined she didn't meet requirements for one. CM contacted [facility] at [phone] to see if they had a case management program through her insurance. She does qualify for their CM program but patient has to say they are interested in participating in CM services. CM attempted to go talk to patient again to explain CM program and see if she would be willing to get services but patient was in a large amount of pain and CM department will follow up with patient tomorrow to see if she would be interested in those services. Coordinated care safety representative did look to see if patient qualified for health homes program through [facility] for in home/ in person care management services but unfortunately doesn't meet requirements. I: Coordinated Care 2nd: Medicaid Plan: D/C home with significate other and family when medically stable. CM department will continue to follow patient to determine if CM department can help set up coordinated care case management initiation and give patient information and resources on mental health within her local area. Yadira Terrell RN Discharge Planning/Care Management CM Discharge Assessment Start: 03/16/19 16:43 Freq: Status: Active Protocol: Document 03/16/19 17:00 (Rec: 03/16/19 17:07 [id number]) Discharge Planning Assessment Assigned [place] Yadira Terrell RN DPOA/Assigned Designee Name Reggie Motley (significant other) Contact Information [phone] Advance Directives? No History Provided By Patient,Medical Record Has Patient been admitted in last 30 Yes days? Comment Patient has had 9 ICU IP stays in the last 12 months. last admission was on 03/08/2019 Prior Living Arrangements House Household Members significant other,family Independent with ADL's Yes Is patient alert and oriented? Yes Caregiver for Another No Comment Has supportive partner and family that live close Discharge Plan Home Transportation Arrangement Significant other can provide transport at d/c. Additional Comment Will contact Coordinated care to see about possible case management referral. Whiteboard Updated in Patient Room with Yes name and ext. # of [place] Review Status In Process Next Review Type Continued Stay Review
[2019-03-16] MEDS: INSULIN ASPART 100 UNIT/ML INSULN PEN 8 UNIT SUBCUT ×2 (17:30→21:05)
[2019-03-16] MEDS: INSULIN ASPART 100 UNIT/ML INSULN PEN SUBCUT (17:30)
[2019-03-16 21:14] LABS: BUN Creatinine Ratio 22.5 (6-22); Blood Urea Nitrogen 18 mg/dL (7-17); Calcium 8.9 mg/dL (8.4-10.2); Carbon Dioxide 17 mmol/L (22-32); Chloride 113 mmol/L (98-107); Estimated Glomerular Filt Rate > 60.0 mL/min (>60); Glucose 177 mg/dL (70-100); HEMOLYSIS < 15 (0-50); Potassium 3.7 mmol/L (3.4-5.1); Sodium 136 mmol/L (137-145)
--- NOTE | 2019-03-16 23:28 | PC.NURSE ---
Evening Shift Note: Pt requesting pain medication early in shift. Pt crying, pale, tachycardic to low 100s with pain. Pt encouraged to void, MD notified, 1 time 1 mg iv dilaudid given per MD order. Then toradol 30 mg iv given. Pt was able to go 4 hours without requesting additional dilaudid, pain level at that time was 5/10. On dayshift it was reported that pt was requiring pain meds q 3 hours and tearful at 3 hour interval. Pt otherwise with uneventful shift. Using call light appropriately, CO2 17 on 2100 blood draw. Will continue to monitor, notify MD with changes.
[2019-03-17 00:25] VITALS: BP 112/57; PULSE 100; RESP 16; TEMP 36.6; O2SAT 99
[2019-03-17] MEDS: HYDROMORPHONE 1 MG INJ IV ×8 (00:28→23:48)
[2019-03-17] MEDS: FAMOTIDINE 20 MG/50 ML PIGGYBACK 200 MG IV ×3 (00:28→23:48)
[2019-03-17 04:27] VITALS: BP 105/66; PULSE 84; RESP 16; TEMP 36.9; O2SAT 96
[2019-03-17 05:12] LABS: BUN Creatinine Ratio 25.6 (6-22); Blood Urea Nitrogen 23 mg/dL (7-17); Calcium 9.1 mg/dL (8.4-10.2); Carbon Dioxide 17 mmol/L (22-32); Chloride 116 mmol/L (98-107); Estimated Glomerular Filt Rate > 60.0 mL/min (>60); Glucose 112 mg/dL (70-100); HEMOLYSIS < 15 (0-50); Magnesium 2.1 mg/dL (1.6-2.3); Potassium 4.1 mmol/L (3.4-5.1); Sodium 139 mmol/L (137-145)
[2019-03-17] MEDS: KETOROLAC 30 MG/ML VIAL IV (05:43)
[2019-03-17] MEDS: SODIUM CHLORIDE 0.9% FLUSH 10 ML IV ×3 (05:44→23:49)
--- NOTE | 2019-03-17 06:23 | PC.NURSE ---
Presto Log Operator Note-Talked with patient about retraining her bladder to void more often she is agreeable and was up to BSC x4 on own throughout night, voiding 50-3000ml jose urine at a time, denies dysuria but continues to c/o left flank pain, medicated with IV Dilaudid per prn and scheduled IV Toradol, declines scheduled PO Tylenol. Had lg hard formed brown stool. CBG at 0200 was 122, small snacks given.
[2019-03-17 07:54] VITALS: BP 134/66; PULSE 86; RESP 16; TEMP 36.4; O2SAT 96
[2019-03-17] MEDS: INSULIN ASPART 100 UNIT/ML INSULN PEN 8 UNIT SUBCUT ×4 (08:25→22:33)
[2019-03-17 12:00] VITALS: BP 123/66; PULSE 90; RESP 16; TEMP 36.5; O2SAT 97
[2019-03-17] MEDS: Insulin Degludec [Tresiba Flextouch U-100] 43 EACH SUBCUT (12:15)
[2019-03-17] MEDS: INSULIN ASPART 100 UNIT/ML INSULN PEN SUBCUT ×2 (12:16→17:52)
--- NOTE | 2019-03-17 12:29 | CM.DPC ---
DCP/continued: AIRPORT SKILLED MAINTENANCE SUPERVISOR attempted to meet with patient this AM to 1)Check on appointment time for office visit tomorrow? and 2)F/U with patient on whether or not she is agreeable to case management as outpatient. Patient on BSC at time of visit. Notified patient that CM steam locomotive firer/fireman would f/u. Patient reports through the curtain that she believes her appointment is at 2:00pm tomorrow. She will double check. P: Home when stable. CM team to f/u re: whether or not patient wants outpatient Case Management through [facility]. RAYMOND Valladares
[2019-03-17] MEDS: KETOROLAC 10 MG TABLET PO ×2 (13:06→19:04)
[2019-03-17 13:27] LABS: Add Manual Diff / Slide Review NO; Basophils Absolute Auto 100 /uL (0-100); Basophils Percent Auto 0.7 % (0-2); Eosinophils Absolute Auto 100 /uL (0-450); Eosinophils Percent Auto 1.2 % (2-4); Hematocrit 32.1 % (36-46); Lymphocytes Absolute Auto 1900 /uL (1100-4500); Lymphocytes Percent Auto 26.1 % (25-40); Mean Corpuscular HGB Conc 34.2 % (30-36); Mean Corpuscular Hemoglobin 32.7 PG (26-34); Mean Corpuscular Volume 95.7 fL (80-100); Monocytes Absolute Auto 700 /uL (0-900); Monocytes Percent Auto 9.4 % (3-14); Neutrophils Absolute Auto 4500 /uL (1500-7000); Neutrophils Percent Auto 62.6 % (50-75); Platelet Count 362 X10^3/uL (150-400); Red Blood Cell Count 3.36 X10^6/uL (4.0-5.2); Red Cell Distribution Width 14.5 % (11.6-14.8); White Blood Cell Count 7.2 X10^3/uL (4.5-11.0)
[2019-03-17 13:43] LABS: BUN Creatinine Ratio 26.7 (6-22); Blood Urea Nitrogen 24 mg/dL (7-17); Carbon Dioxide 16 mmol/L (22-32); Chloride 115 mmol/L (98-107); Estimated Glomerular Filt Rate > 60.0 mL/min (>60); Glucose 210 mg/dL (70-100); HEMOLYSIS < 15 (0-50); Potassium 3.8 mmol/L (3.4-5.1); Sodium 137 mmol/L (137-145)
--- NOTE | 2019-03-17 14:21 | DI.US.S_ITS ---
PROCEDURE: US RENAL COMPLETE INDICATIONS: BILATERAL HYDRONEPHORSIS, RE-EVALUATION AFTER VOIDING TECHNIQUE: Real-time scanning was performed of the kidneys and bladder, with image documentation. COMPARISON: [facility], CT, CT ABDOMEN PELVIS W CON, 03/15/2019, 22:08. [facility], US, RENAL COMPLETE, 05/12/2015, 17:46. FINDINGS: Kidneys: Kidneys are normal in size. Right kidney measures 10.6 cm long; left kidney measures 10.6 cm long. Right renal cortical thickness is 1.1 cm; left renal cortical thickness is 1.1 cm. Renal cortical echotexture is normal. No hydronephrosis or nephrolithiasis. No suspicious solid mass lesions. Bladder: Pre-void bladder volume is 162 mL. Post-void residual is 18 mL. Mild bladder wall thickening. Pre-void images demonstrate no intraluminal masses or stones. On pre-void images, bilateral ureteral jets are noted with color Doppler interrogation. (Of note, ureteral jets may not be detectable in up to 25% of cases due to insufficient differences in specific gravity between ureteral and bladder urine). Miscellaneous: No free pelvic fluid. IMPRESSION: 1. Resolution of bilateral hydronephrosis. 2. Mild urinary bladder wall thickening may be secondary to chronic over distention or cystitis. Correlate with UA. Dictated by: Whitney Henning M.D. on 03/17/2019 at 16:36 Approved by: Whitney Henning M.D. on 03/17/2019 at 16:38
--- NOTE | 2019-03-17 14:54 | PM.PN.1 ---
Subjective Subjective Date Patient Seen: 03/17/19 Time Patient Seen: 14:54 Interval history: Sarabjit Jimenes is a 29-year-old female with past medical history of type 1 diabetes who was admitted with DKA. This is her 3rd admission for DKA in the past month. Her infectious workup has been unremarkable. Her CT abdomen pelvis with contrast showed marked bladder distention with bilateral hydronephrosis, however she had not voided. Her gap is closed and her non anion gap acidosis is also improved today. She feels much improved today but still has a bit of nausea with eating. She still continues to have left flank pain but denies any fevers, chills, or dysuria and she reports her left flank pain is improving. Exam Vital Signs (past 8 hours): - 03/17/19 07:54 03/17/19 12:00 Temperature 97.6 F 97.7 F Pulse Rate 86 90 Respiratory Rate 16 16 Blood Pressure 134/66 123/66 Pulse Oximetry 96 97 Oxygen Delivery Method Room Air Oxygen Flow Rate 0 Narrative Exam Narrative: GENERAL APPEARANCE: Young female, appears fatigued but in no acute distress. SKIN: Inspection of the skin reveals no rashes, ulcerations or petechiae. HEENT: The sclerae were anicteric and conjunctivae were pink and moist. Extraocular movements were intact and pupils were equal, round with normal accommodation. External inspection of the ears and nose showed no scars, lesions, or masses. Lips, teeth, and gums showed normal mucosa. The oral mucosa, hard and soft palate, tongue and posterior pharynx were unremarkable. NECK: Supple and symmetric. There was no thyroid enlargement, and no tenderness, or masses were felt. CHEST: Normal AP diameter and normal contour without any kyphoscoliosis. LUNGS: Auscultation of the lungs revealed no wheezes, rhonchi, or rales. CARDIOVASCULAR: There was a tachycardic rate and regular rhythm without any murmurs, gallops, rubs. Peripheral pulses were 2+ and symmetric. ABDOMEN: soft, improved tenderness more prominent bilateral lower quadrant and L flank. MUSCULOSKELETAL: There was no tenderness or effusions noted. Muscle strength and tone were normal. EXTREMITIES: No cyanosis, clubbing or edema. NEUROLOGIC: Alert and oriented x 3. Strength +5/5 and no focal deficits. Objective Labs Result Diagrams: 03/17/19 11:31 03/17/19 11:31 Labs: Laboratory Results - last 24 hr 03/16/19 03/16/19 03/16/19 15:00 15:00 20:55 WBC RBC Hgb Hct MCV MCH MCHC RDW Plt Count Neut % (Auto) Lymph % (Auto) [place] % (Auto) Eos % (Auto) Baso % (Auto) Neut # (Auto) Lymph # (Auto) [place] # (Auto) Eos # (Auto) Baso # (Auto) Sodium 139 136 L Potassium 4.3 3.7 Chloride 117 H 113 H Carbon Dioxide 13 L 17 L BUN 16 18 H Creatinine 0.80 0.80 Estimated GFR > 60.0 > 60.0 BUN/Creatinine Ratio 20.0 22.5 H Glucose 173 H 177 H Calcium 8.7 8.9 Phosphorus 3.7 Magnesium 1.9 2.0 03/17/19 03/17/19 03/17/19 04:30 11:31 11:31 WBC 7.2 D RBC 3.36 L Hgb 11.0 L Hct 32.1 L MCV 95.7 MCH 32.7 MCHC 34.2 RDW 14.5 Plt Count 362 Neut % (Auto) 62.6 D Lymph % (Auto) 26.1 D [place] % (Auto) 9.4 Eos % (Auto) 1.2 L Baso % (Auto) 0.7 Neut # (Auto) 4500 Lymph # (Auto) 1900 [place] # (Auto) 700 Eos # (Auto) 100 Baso # (Auto) 100 Sodium 139 137 Potassium 4.1 3.8 Chloride 116 H 115 H Carbon Dioxide 17 L 16 L BUN 23 H 24 H Creatinine 0.90 0.90 Estimated GFR > 60.0 > 60.0 BUN/Creatinine Ratio 25.6 H 26.7 H Glucose 112 H 210 H Calcium 9.1 9.0 Phosphorus Magnesium 2.1 Assessment & Plan Assessment & Plan narrative: This 28-year-old female who presents to the hospital for nausea with body aches and diabetic ketoacidosis with no identified infective etiology. 1. Acute diabetic ketoacidosis, without coma, secondary to type 1 diabetes, present on admission, Resolved. -patient discharged from the hospital on 03/10/2019 following an 8 day admission for DKA and evaluation and treatment of pyelonephritis. -this is the 3rd admission within 1 month, per report the patient has had better dietary control. -acidotic on admission with pH of 6.98, pCO2 of 8.6, PO2 119, H CO3 2, base excess -30. -No source of infection identified, afebrile, procalcitonin-0.12, CRP -0.9, white blood cell count of 11.1, lactic acid 2.6 secondary to dehydration which has improved. Leukocytosis did increase to 18 which improved to 7.2 today. This was either reactive to DKA or secondary to steroids given in the emergency room. -DKA protocol with insulin drip was initiated and now discontinued. Patient has resumed home regimen of insulin and tolerating diet. -Monitor electrolytes including magnesium and phosphorus every 4 hours and continue as needed until anion gap closes, replete as needed. -will transition the patient back to [place] 43 units daily, 8 units Humalog prandial insulin and correctional insulin when anion gap closes and bicarb level is consistently above 15. Patient during previous admissions has a prolonged NAGMA following DKA. -patient has follow up at [facility] clinic tomorrow, plans to ask for referral to for endocrinology. 2. Acute anion gap metabolic acidosis, present on admission, resolved -acidotic on admission with pH of 6.98, pCO2 of 8.6, PO2 119, H CO3 2, base excess -30. -anion gap is calculated at 34 on admission, now resolved after DKA treatment as noted above. 3. Gastroparesis, chronic and episodic, present on admission, active -patient with epigastric abdominal pain on palpation, distended stomach noted on CT scan. Patient reports decreased appetite but denies nausea vomiting. Hypoactive bowel tones. -gastroparesis secondary to uncontrolled diabetes. Now improved with treatment of DKA. -Reglan as needed for nausea. 4. Acute neurogenic bladder secondary to neuropathy, present on admission, improved. -patient with large distended bladder noted on CT scan, patient with no urge to void. -when patient prompted patient voided 1200 cc. -continue timed voiding every 2-4 hours. -will need urology follow up for diabetic cystopathy. -patient has history of infected stones causing hydronephrosis, will repeat US kidney today. 5. Flank pain, mild hydronephrosis, present on admission, active. -patient treated on prior admission for pyelonephritis with Zosyn during admission and Augmentin on discharge for pansensitive E coli. -patient also with history of fungal infection of the urinary tract involving the kidney with recent course of fluconazole. -abdominal and pelvis CT finds bilateral hydronephrosis with ureteral dilatation, marked distention of bladder without evidence of stone or obstruction. -patient has received hydromorphone in the emergency department, will continue 1.0 mg hydromorphone IV q.3 hours as needed for pain, will work on decreasing this and transition to PO medications in anticipation of discharge tomorrow. -will repeat US kidney as noted above to see if persistent dilatation or if there is evidence of kidney stones. 6. Acute kidney injury, improved -multifactorial including neurogenic bladder with obstructive uropathy and acute dehydration. -patient with elevated creatinine at 1.2 on admission, improved now to 0.8-0.9 last two days. -timed voiding as noted above -will continue to trend renal function 7. Medical noncompliance, active -the patient admits to history of dietary indiscretions, concern related to severity of illness occurring within 5 days discharge and medication compliance -reinforce need for routine blood sugar checks, corrected insulin management and appropriate diet. -dietitian to consult, re-educate and reinforce dietary management -this is the 3rd admission within 1 month. Patient denies symptoms of depression with this provider and continues to endorse compliance with medications. VTE prophylaxis: Bilateral SCDs, subcutaneous Lovenox Diet: Carbohydrate consistent diet.
[2019-03-17 15:02] VITALS: BMI 18.9
--- NOTE | 2019-03-17 15:15 | DIET.PN ---
Dietary Progress Note Assessment: 29y F admitted to ICU for third time this month for DKA c BG >500. Pt body weight is lowest on record for year which is concerning (8.1% loss in 1 mo, severe) which qualifies for severe protein calorie malnutrition. Pt called in dinner and breakfast order as follows: dinner- grilled cheddar cheese sandwich on white bread, side salad c ranch and sugar free chocolate pudding breakfast- scrambled eggs, botswanan muffin, antonio, 2% milk Pt is able to order within her CCD diet order while inpatient. HT: 154.9cm WT: 45.5kg UBW: 46-53kg this year per records BMI: Labs:BUN 24 H, BG 112-618 H Nutrition Diagnosis: 1. Severe Acute on Chronic PCM r/t impaired nutrient utilization from uncontrolled DM1 aeb 8.1% unintentional wt loss in 1mo, A1c >14 for one or more years, three admits to ICU this month for DKA c BG >500 in addition to five admits to ICU in past year for same reason despite being followed by plc technician and having DM education in hospital. 2. Poor nutrition quality of life r/t inability to manage self care (DM1) aeb 3 ICU admits in past month for DKA, A1c >14, BMI 20.7. [facility] to manage DM in order to get A1c back on the charts whether OP DSME through [facility], a case hardener, or family member. Diet Order: CCD EER: 1800kcal (wt gain), 65g PRO (1.2g/kg for malnutrition), 1700 L fluids Monitoring/Evaluations: I&Os, associated labs, continued education when pt receptive
[2019-03-17 15:53] VITALS: BP 122/77; PULSE 87; RESP 18; TEMP 36.7; O2SAT 99
--- NOTE | 2019-03-17 16:04 | CM.DPC ---
DCP Continued: EMR reviewed: TRAVIS/RN met with patient at the bedside to discuss coordinated care case management option. Patient stated she was interested to work with her insurance [employer] case management program. TRAVIS/Rn will contact Coordinated care and get case management set up for when the patient d/c home. Patient stated she has a doctors appointment scheduled for tomorrow with her PCP at 2pm. Plan is to D/c patient tomorrow as long as her labs come back ok and she is medically stable for d/c. Patient stated she wants to request a new referral to endocrinology at the since she has been struggling with her current provider. Patient stated she has struggled because the office where she goes has lost three endocrinology providers in the last 8 months. Patient stated its hard to get stable on medication and get a healthcare plan when you change providers at every visit. Patient also stated that she wants to be considered for an insulin pump again. TRAVIS/RN asked patient how she did on a pump before? Patient stated that she was medically stable on a pump for over two years with no DKA or hospitalizations but over time the pump broke and hasn't been able to replace it. Then she stated she went to her coding technician and they stated she wasn't a candidate yet for a pump but then when she went back to follow up with that provider he was gone and was given a new dr. TRAVIS/RN brought [facility] brochure with information about mental health services they offer as well as crisis line information to the patient. TRAVIS/RAYNA discussed with patient at pervious meeting about how she has not been emotionally feeling very well and has been very depressed. Patient today stated its hard and that she doesn't feel like she can talk to anyone in her family because they don't understand how hard it is to be sick their whole lives. TRAVIS/RN let patient talk and then let her know that counseling services might be helpful for her since she struggles with being able to talk about her feelings at home. Patient agreed and took brochure and called [facility] to talk with someone. TRAVIS/RN gave patient some privacy to talk with [facility]. TRAVIS/RN called [facility] at to disscuss patient getting case management services. TRAVIS/RN let the cash applications coordinator know that the patient was currently in ICU for DKA again and that this was her 9th admission. resident services coordinator told CM that they have tried to set up Case management services before but couldn't get the patient to call them back. CM explained that the patient screens her calls and for them to leave a voicemail and a call back number and she stated she will call them back. CM department will reiterate to patient that when coordinated care calls her to set up case management services that it will be very important for the patient to call them back or they wont continue to work with her. Coordinated care rn case manager hospice assigned is out of the office until after March 25 so she shouldn't receive a phone call until then. CM department will continue to follow patient until D/C. Yadira Terrell RN.
--- NOTE | 2019-03-17 19:10 | PC.NURSE ---
0 - Pt c/o pain 8 of 10 to left flank. Crying. Discussed alternative therapies. Pt declines warm or cold pain. Declines activity/ambulation or up to chair. Pt previously declined APAP stating, it doesn't do anything. Reviewed available rx. Pt reports feeling like the toradol has minimal effect. Dilaudid and toradol given. Monitor.
[2019-03-17 20:00] VITALS: BP 109/62; PULSE 93; RESP 19; TEMP 36.1; O2SAT 99
[2019-03-18] VITALS: BP 116/65; PULSE 97; RESP 16; TEMP 36.7; O2SAT 97
[2019-03-18] MEDS: HYDROMORPHONE 1 MG INJ IV ×2 (03:04→07:47)
[2019-03-18] MEDS: SODIUM CHLORIDE 0.9% FLUSH 10 ML IV ×2 (03:05→07:56)
[2019-03-18 05:39] VITALS: BP 122/78; PULSE 84; RESP 12; TEMP 37.1; O2SAT 100
[2019-03-18 05:44] LABS: Add Manual Diff / Slide Review NO; Basophils Absolute Auto 0 /uL (0-100); Basophils Percent Auto 0.7 % (0-2); Eosinophils Absolute Auto 100 /uL (0-450); Eosinophils Percent Auto 1.6 % (2-4); Hematocrit 29.9 % (36-46); Hemoglobin 10.3 g/dL (12.0-16.0); Lymphocytes Absolute Auto 2100 /uL (1100-4500); Lymphocytes Percent Auto 38.1 % (25-40); Mean Corpuscular HGB Conc 34.4 % (30-36); Mean Corpuscular Hemoglobin 32.6 PG (26-34); Mean Corpuscular Volume 94.7 fL (80-100); Monocytes Absolute Auto 600 /uL (0-900); Neutrophils Absolute Auto 2700 /uL (1500-7000); Neutrophils Percent Auto 48.6 % (50-75); Platelet Count 350 X10^3/uL (150-400); Red Blood Cell Count 3.16 X10^6/uL (4.0-5.2); Red Cell Distribution Width 14.4 % (11.6-14.8); White Blood Cell Count 5.5 X10^3/uL (4.5-11.0)
[2019-03-18 05:51] LABS: BUN Creatinine Ratio 37.5 (6-22); Blood Urea Nitrogen 30 mg/dL (7-17); Calcium 8.6 mg/dL (8.4-10.2); Carbon Dioxide 20 mmol/L (22-32); Chloride 114 mmol/L (98-107); Estimated Glomerular Filt Rate > 60.0 mL/min (>60); Glucose 75 mg/dL (70-100); HEMOLYSIS < 15 (0-50); Sodium 139 mmol/L (137-145)
[2019-03-18 07:59] VITALS: BP 121/81; PULSE 84; RESP 18; TEMP 36.7; O2SAT 100
[2019-03-18] MEDS: METHOCARBAMOL 500 MG TABLET PO (08:18)
[2019-03-18] MEDS: INSULIN ASPART 100 UNIT/ML INSULN PEN SUBCUT ×2 (08:22→12:39)
[2019-03-18] MEDS: INSULIN ASPART 100 UNIT/ML INSULN PEN 8 UNIT SUBCUT ×2 (08:23→12:40)
[2019-03-18] MEDS: Insulin Degludec [Tresiba Flextouch U-100] 43 EACH SUBCUT (08:24)
--- NOTE | 2019-03-18 09:47 | PC.NURSE ---
Addendum entered by Amee Esparza R.N. 03/18/19 15:10: Pt has taken PO Dilaudid with good effect, Addendum entered by Amee Esparza R.N. 03/18/19 11:17: 1115, Pt declines APAP and Torodol, They dont do anything, I have told you that, I have told him that Crying. Enc Patient to get up OOB to ambulate, Pt feels she is in too much pain to participate in any activity. Will update to Dr Bennett. Original Note: Am shift Pt is alert and oriented. Tearful. Reporting L flank pain. incredibly tense when assessingABD/back ect. Stiff gait with movement. Gaurtyler ABD. Dr Weinberg into see Pt, orders obtained. Lungs clear, Spo2 100%. Reminding Pt to get up OOB to void every 2-4 hours. Cooperative with requests from staff. Mother in and update provided.
--- NOTE | 2019-03-18 10:44 | CM.DPNOTE ---
DC Note: Reviewed chart. Pt discussed in AM rounds. Dr Bennett will DC pt today, home, w/enough time to get to her afternoon appt w/PCP through the [facility]. Attempted to meet w/pt this morning to reiterate message from DC Planning team to f/u w/[facility] CM; RAYNA Lubin suggests it is not a good time for a visit, pt was just visited from the Dr to review DC and pt is tearful, upset, and asking for additional pain medication. RAYNA Lubin suggests that pt okay to DC home today, has information needed about f/u recommended, no barriers this [employer] needs to address today. RAYMOND Loza
[2019-03-18] MEDS: HYDROMORPHONE 2 MG TABLET 1 MG PO ×2 (12:35→16:39)
[2019-03-18 15:49] VITALS: BP 110/58; PULSE 99; RESP 18; TEMP 36.7; O2SAT 97
--- NOTE | 2019-03-18 16:06 | P.DS_ITS ---
History of Present Illness History of Present Illness Date Patient Seen: 03/18/19 Time Patient Seen: 16:07 Chief complaint: States DKA Narrative: As per SHARYN Noguera: Ms. Sarabjit Jimenes is a 28-year-old female patient with a history significant for type 1 diabetes, migraines, irregular menstruation and prior pyelolithiasis who presents to the ER with complaints of generalized weakness, body aches restlessness, left flank pain and tachypnea. This patient states her pain from her previous pyelonephritis never completely resolved and has been gradually increasing since discharge. She has had associated development of abdominal pain and complaints are a tachypneic. The patient presents to the emergency room following having continuously elevated blood sugars and again developing DKA. Patient is a known type 1 diabetic with 3 admissions in the last month for DKA. She reports no nausea vomiting or changes in bowel habits her last bowel movement earlier today. She denies cold or flu symptoms, fever chills headaches or dizziness. She denies nasal congestion or sore throat. She reports no chest pain palpitations, no cough or wheezing. Abdominal pain is generalized but markedly tender left posterior flank. She reports no diarrhea constipation. She denies urinary frequency urgency or burning and no hematuria. The patient does not sense need to void. She states her last menstrual period was in July on control with norethindrone. She denies rashes or skin lesions. She is under the care of a new forward air controller/air officer providing the name of Dr. Gay at [facility] has since left the service in the patient has been reassigned to a another provider but does not have an appointment until April. The patient reports being compliant with Teseba 43 units at 11:00 a.m. daily, 8 units of parental insulin and correctional scale Humalog AC and HS. Upon arrival to the emergency department the patient was found be afebrile with temperature 97.7?, hypertensive pressure of 169/120, tachycardic 156, respirations of 30 saturating 100% on room air. An ABG is obtained finding a pH of 6.98, pCO2 of 8.6, PO2 of 119, H CO3 of 2 and base excess of -30. On CBC she has a white count of 11.1, hemoglobin of 14.0, hematocrit of 43.3 and platelets of 793. She has a sodium of 141, potassium of 4.7, magnesium 2.3 and phosphate of 7.3. Notably she has a CO of 5 in a BUN of 25 and a creatinine of 1.2. Her lactic acid was 2.6 and ketones are 15.9. TSH is found to be 2.64. Anion gap is calculated at 34. A CT of the abdomen is requested related to prior pyelonephritis and presentation of an increased creatinine of 1.2. CT the abdomen and pelvis with contrast is obtained finding considerable distention of the urinary bladder mild bilateral hydronephrosis and ureteral dilatation right greater than left without identification renal or ureteral stone. Post CT exam the patient voided 1200 cc with a postvoid bladder scan revealing an additional 100 cc's remaining in the bladder. The patient is admitted to the medicine service for recurrent DKA on insulin drip admitted to the ICU. Discharge Providers Provider Date of admission: 03/15/19 22:54 Discharge Date: 03/18/19 Consults: 03/15/19 23:29 Consult to Discharge Planning Routine Comment: Consult to TRAVEL JOURNALIST - [employer]rm Business Analyst Routine Comment: Uncontolled Type 1 DM, 3rd admit DKA in 1 month 03/15/19 23:50 Consult to Dietitian, Adult Routine Comment: Reason For Exam: Uncontrolled diabetes Discharge provider: Julio Cesar Weinberg DO Summary Hospital Course Discharge Diagnosis: 1. Acute diabetic ketoacidosis, without coma, secondary to type 1 diabetes, present on admission, Resolved. 2. Acute anion gap metabolic acidosis, present on admission, resolved 3. Gastroparesis, chronic and episodic, present on admission, active 4. Acute neurogenic bladder secondary to neuropathy, present on admission, improved. 5. Flank pain, mild hydronephrosis, present on admission, active. 6. Acute kidney injury, resolved 7. Medical noncompliance, active Hospital Course: This 28-year-old female with past medical history of type 1 diabetes who presented to the hospital for nausea with body aches and diabetic ketoacidosis with no identified infective etiology. She improved with an insulin infusion. After her gap closed she had a prolonged non anion gap metabolic acidosis which resolved. She had continued flank pain after DKA. Her UA was negative for infectious etiologies and she was recently treated for pyelonephritis. She presented with 1200 cc in her bladder and bilateral hydronephrosis. Repeat ultrasound after voluntary voiding every 2-4 hours showed resolution of bilateral hydronephrosis. Given her exam, multiple recent admissions to the hospital it is felt that her left flank pain is more likely due to musculoskeletal causes at this time. 1. Acute diabetic ketoacidosis, without coma, secondary to type 1 diabetes, present on admission, Resolved. -patient discharged from the hospital on 03/10/2019 following an 8 day admission for DKA and evaluation and treatment of pyelonephritis. -this is the 3rd admission within 1 month, per report the patient has had better dietary control and is compliant with her medications. -acidotic on admission with pH of 6.98, pCO2 of 8.6, PO2 119, H CO3 2, base excess -30. -No source of infection identified, afebrile, procalcitonin-0.12, CRP -0.9, white blood cell count of 11.1, lactic acid 2.6 secondary to dehydration which improved. Leukocytosis did increase to 18 and then improved to 7.2. This was either reactive to DKA or secondary to steroids given in the emergency room. -DKA protocol with insulin drip was initiated and now discontinued. Patient has resumed home regimen of insulin and tolerating diet. -patient has follow up at [facility] residency clinic, plans to ask for referral to for endocrinology. 2. Acute anion gap metabolic acidosis, present on admission, resolved -acidotic on admission with pH of 6.98, pCO2 of 8.6, PO2 119, H CO3 2, base excess -30. -anion gap is calculated at 34 on admission, now resolved after DKA treatment as noted above. 3. Gastroparesis, chronic and episodic, present on admission, active -patient with epigastric abdominal pain on palpation, distended stomach noted on CT scan. Patient reports decreased appetite but denies nausea vomiting. Hypoactive bowel tones. -gastroparesis secondary to uncontrolled diabetes. Now improved with treatment of DKA and patient is tolerating a diet without nausea or vomiting. -follow-up with primary care provider and potentially new forward air controller/air officer. 4. Acute neurogenic bladder secondary to neuropathy, present on admission, improved. -patient with large distended bladder noted on CT scan, patient with no urge to void. -when patient prompted patient voided 1200 cc. -continue voluntary voiding every 2-4 hours when awake. 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 -patient has history of infected stones causing hydronephrosis, repeat ultrasou nd showed no evidence of hydronephrosis or nephrolithiasis. 5. Flank pain, mild hydronephrosis, present on admission, active. -patient treated on prior admission for pyelonephritis with Zosyn during admission and Augmentin on discharge for pansensitive E coli. -patient also with history of fungal infection of the urinary tract involving the kidney with recent course of fluconazole. -abdominal and pelvis CT finds bilateral hydronephrosis with ureteral dilatation, marked distention of bladder without evidence of stone or obstruction. Her hydronephrosis resolved after voluntary voiding as noted above. Her pain is likely side musculoskeletal in nature. She was prescribed a few tablets of Dilaudid to help with acute severe pain to help her be able to ambulate further. She is recommended to continue conservative therapy including ice packs or heat pads and stretches. 6. Acute kidney injury, resolved -multifactorial including neurogenic bladder with obstructive uropathy and acute dehydration. -patient with elevated creatinine at 1.2 on admission, improved now to 0.8-0.9 last two days. -timed voiding as noted above 7. Medical noncompliance, active -the patient admits to history of dietary indiscretions, concern related to severity of illness occurring within 5 days discharge and medication compliance -reinforce need for routine blood sugar checks, corrected insulin management and appropriate diet. -this is the 3rd admission within 1 month. Patient denies symptoms of depression with this provider and continues to endorse compliance with medications. Status at Discharge Cognitive/behavioral status at discharge: oriented Functional status at discharge: independent ambulation Time Spent with Patient Time spent: Greater than 30 minutes Exam Vital Signs (past 8 hours): - 03/18/19 15:49 Temperature 98.1 F Pulse Rate 99 H Respiratory Rate 18 Blood Pressure 110/58 L Pulse Oximetry 97 Oxygen Delivery Method Room Air Oxygen Flow Rate 0 Narrative Exam Narrative: GENERAL APPEARANCE: Well developed, well nourished, in no acute distress. SKIN: Inspection of the skin reveals no rashes, ulcerations or petechiae. HEENT: The sclerae were anicteric and conjunctivae were pink and moist. Extraocular movements were intact and pupils were equal, round with normal accom modation. External inspection of the ears and nose showed no scars, lesions, or masses. Lips, teeth, and gums showed normal mucosa. The oral mucosa, hard and soft palate, tongue and posterior pharynx were unremarkable. NECK: Supple and symmetric. There was no thyroid enlargement, and no tenderness, or masses were felt. CHEST: Normal AP diameter and normal contour without any kyphoscoliosis. LUNGS: Auscultation of the lungs revealed no wheezes, rhonchi, or rales. CARDIOVASCULAR: There was a regular rate and rhythm without any murmurs, gallops, rubs. Peripheral pulses were 2+ and symmetric. ABDOMEN: Soft and nontender with normal bowel sounds. No ascites was noted. MUSCULOSKELETAL: mild left paraspinal tenderness with radiation into the left flank. Tight paraspinal musculature. Pain exacerbated by movement. EXTREMITIES: No cyanosis, clubbing or edema. NEUROLOGIC: Alert and oriented x 3. Normal affect. Gait was normal. Strength is +5/5 in the Upper Extremities and Lower Extremities Bilaterally. Sensation to touch was normal. Objective Labs Result Diagrams: 03/18/19 05:27 03/18/19 05:27 Labs: Laboratory Results - last 24 hr 03/18/19 03/18/19 05:27 05:27 WBC 5.5 RBC 3.16 L Hgb 10.3 L Hct 29.9 L MCV 94.7 MCH 32.6 MCHC 34.4 RDW 14.4 Plt Count 350 Neut % (Auto) 48.6 L Lymph % (Auto) 38.1 [place] % (Auto) 11.0 Eos % (Auto) 1.6 L Baso % (Auto) 0.7 Neut # (Auto) 2700 Lymph # (Auto) 2100 [place] # (Auto) 600 Eos # (Auto) 100 Baso # (Auto) 0 Sodium 139 Potassium 4.0 Chloride 114 H Carbon Dioxide 20 L BUN 30 H Creatinine 0.80 Estimated GFR > 60.0 BUN/Creatinine Ratio 37.5 H Glucose 75 D Calcium 8.6 Discharge Plan Discharge Plan Patient Disposition: Home Discharge comment: You were admitted to the hospital with DKA. You improved with an insulin infusion. You had a lot of urine in her bladder which cause dilation of your ureters and kidneys. This improved with frequent voiding which she should continue at home. You should obtain a referral to urologist for this when he follow up with her primary care provider as they may be able to do further evaluation. With her primary care provider as well, you may benefit from a new forward air controller/air officer referral as well. Your left flank pain is likely musculoskeletal. You should get up and move as much as possible. A few tablets of Dilaudid were sent to the pharmacy. You should only use these if you have severe pain needed to move. Continue conservative therapies including hot or cold packs and stretches. Discharge orders & Medications Prescriptions: New Insulin Deglude 43 unit SUBCUT DAILY 30 Days RF: 0 methocarbamol 500 mg Tablet 500 mg PO TID PRN (Reason: Muscle Spasm) 30 Days Qty: 90 RF: 0 ketorolac 10 mg Tablet 10 mg PO Q6HR PRN (Reason: Pain, Mild (1-3)) 7 Days Qty: 28 RF: 0 hydromorphone 2 mg Tablet 1 mg PO Q4HR PRN (Reason: Pain, Severe (7-10)) 2 Days Qty: 10 RF: 0 Continued glucose 4 gram tablet,chewable 4 gram PO Q15M PRN (Reason: hypoglycemia) Qty: 30 RF: 0 Glucagon Emergency Kit (human) 1 mg recon soln 1 mg subcut DIRECTED RF: 0 ergocalciferol (vitamin D2) [Vitamin D2] 50,000 unit capsule 50,000 unit PO QWEEK RF: 0 norethindrone (contraceptive) [Tulana] 0.35 mg Tablet 0.35 mg PO DAILY RF: 0 cholecalciferol (vitamin D3) [Vitamin D3] 2,000 unit Capsule 2,000 unit PO DAILY RF: 0 Bacid 1 billion cell- 250 mg Tablet 1 ea PO TIDWM Qty: 42 RF: 0 nystatin 100,000 unit/gram ointment 1 applic TOPICAL DIRECTED RF: 0 insulin lispro [Humalog KwikPen Insulin] 100 unit/mL insulin pen See Rx Instructions .ROUTE .COMPLEX Qty: 0 RF: 0 Discontinued Tresiba FlexTouch U-100 100 unit/mL (3 mL) Insulin Pen 40 unit Sub-Q DAILY Qty: 15 RF: 2 Discharge Health Status Health Concerns: Type 1 diabetes Diabetic cystopathy Diet/Activity/Treatments Diet: Diet as Tolerated and Carb-consistent/Diabetic Activity: As tolerated Cold/Heat Therapy: Please apply ice packs or heat pads to your left flank and low back for continued musculoskeletal pain relief Visit Report/Discharge Packet Instructions: DI for Diabetic Ketoacidosis, DI for Hydronephrosis-Adult
--- NOTE | 2019-03-18 17:14 | PC.NURSE ---
1710 - discharge instructions reviewed with Pt and Mom. Mid-line to [facility] d/c'd. Pt BG 230, declines insulin coverage at this time. I will do it at home when I eat. Pt requesting to ambulate out. D/c to home accompanied by Mom.
== END 2019-03-18 17:15 | disposition home or self-care (01) | DRG 638 ==
LOC: ED 20:42 → ICU 03-16 07:30
PROVIDERS: Internal Medicine; Admitting Provider Nurse Practitioner Adult Health; Emergency Provider Emergency Medicine; Visit Provider Nurse Practitioner Adult Health
DX: E10.10 Type 1 diabetes mellitus with ketoacidosis without coma (principal); N17.9 Acute kidney failure, unspecified; N13.30 Unspecified hydronephrosis; E10.43 Type 1 diabetes mellitus with diabetic autonomic (poly)neuropathy; K31.84 Gastroparesis; Z79.4 Long term (current) use of insulin; N31.9 Neuromuscular dysfunction of bladder, unspecified; Z91.11 Patient's noncompliance with dietary regimen; T38.3X6A Underdosing of insulin and oral hypoglycemic [antidiabetic] drugs, initial encounter; Z91.128 Patient's intentional underdosing of medication regimen for other reason; E10.40 Type 1 diabetes mellitus with diabetic neuropathy, unspecified; R10.9 Unspecified abdominal pain
CPT/HCPCS: 36415; 36592; 36600; 51798; 74177; 76770; 80048; 80053; 80320; 81001; 81025; 82009; 82805; 82962; 83605; 83690; 83735; 84100; 84145; 84443; 84703; 85025; 86140; 87040; 87797; 93005; 96365; 96366; 96375; 96376; 99283; 99284; J1170; J1200; J1642; J1650; J1885; J2930; J3480; J7050

== ENCOUNTER 2019-09-29 13:37 | Inpatient (IN) | payer MEDICAID, SELFPAY ==
[2019-09-29 13:48] VITALS: BP 131/86; PULSE 134; RESP 20; TEMP 36.7; O2SAT 98; BMI 21.1
[2019-09-29] MEDS: SODIUM CHLORIDE 0.9% 1,000 ML 1000 ML IV (14:24)
[2019-09-29] MEDS: LIDOCAINE 1% W/EPI 2 ML SUBCUT (14:53)
[2019-09-29] MEDS: HYDROMORPHONE 0.5 MG INJ IV (14:53)
[2019-09-29 14:57] LABS: Add Manual Diff / Slide Review NO; Basophils Absolute Auto 200 /uL (0-100); Basophils Percent Auto 1.3 % (0-2); Eosinophils Absolute Auto 0 /uL (0-450); Eosinophils Percent Auto 0.1 % (2-4); Hematocrit 43.4 % (36-46); Hemoglobin 14.2 g/dL (12.0-16.0); Lymphocytes Absolute Auto 2000 /uL (1100-4500); Lymphocytes Percent Auto 14.2 % (25-40); Mean Corpuscular HGB Conc 32.7 % (30-36); Mean Corpuscular Hemoglobin 33.1 PG (26-34); Mean Corpuscular Volume 101.3 fL (80-100); Monocytes Absolute Auto 1000 /uL (0-900); Monocytes Percent Auto 7.2 % (3-14); Neutrophils Absolute Auto 11100 /uL (1500-7000); Neutrophils Percent Auto 77.2 % (50-75); Platelet Count 476 X10^3/uL (150-400); Red Blood Cell Count 4.28 X10^6/uL (4.0-5.2); Red Cell Distribution Width 13.2 % (11.6-14.8); White Blood Cell Count 14.4 X10^3/uL (4.5-11.0)
[2019-09-29 15:20] LABS: Lactate (Lactic Acid) 0.9 mmol/L (0.7-2.1)
[2019-09-29 15:22] LABS: Alanine Aminotransferase 13 IU/L (<35); Albumin 4.4 g/dL (3.5-5.0); Albumin Globulin Ratio 1.3 (1.0-2.8); Alkaline Phosphatase 214 U/L (38-126); Aspartate Aminotransferase 16 IU/L (14-36); BUN Creatinine Ratio 25.3 (6-22); Bilirubin Total 0.3 mg/dL (0.2-1.3); Blood Urea Nitrogen 23 mg/dL (7-17); Calcium 9.8 mg/dL (8.4-10.2); Chloride 104 mmol/L (98-107); Estimated Glomerular Filt Rate > 60.0 mL/min (>60); Globulin 3.4 g/dL (1.7-4.1); Magnesium 2.4 mg/dL (1.6-2.3); Phosphorous 6.4 mg/dL (2.5-4.5); Potassium 4.5 mmol/L (3.4-5.1); Sodium 140 mmol/L (137-145); Total Protein 7.8 g/dL (6.3-8.2)
[2019-09-29 15:27] LABS: PO2 VBG 62 mmHg (35-45); pH VBG 7.03 (7.33-7.43)
[2019-09-29 15:28] LABS: HCO3 VBG 4 mmol/L (23-28); Oxygen Saturation VBG 79 % (70-75); Total CO2 VBG < 5 mmol/L (24-29)
[2019-09-29 15:32] VITALS: BP 125/77; PULSE 124; RESP 20; O2SAT 100
[2019-09-29 15:32] LABS: Glucose 631 mg/dL (70-100)
[2019-09-29 15:34] LABS: Procalcitonin 0.28 ng/mL (<0.5)
[2019-09-29 15:43] LABS: Carbon Dioxide < 5 mmol/L (22-32)
[2019-09-29 15:47] LABS: HEMOLYSIS 17 (0-50)
--- NOTE | 2019-09-29 15:50 | DI.RAD.S_ITS ---
PROCEDURE: XR CHEST 2V INDICATIONS: DKA TECHNIQUE: 2 views of the chest were acquired. COMPARISON: [facility], , XR CHEST 1V, 03/08/2019, 13:40. [facility], CR, XR CHEST 2V, 02/03/2018, 21:18. [facility], CR, CHEST 2 VIEW, 12/13/2013, 13:51. [facility], , CHEST 2 VIEW, 03/02/2013, 14:10. FINDINGS: Surgical changes and devices: None. Lungs and pleura: Lungs are clear. No pleural effusions or pneumothorax. Mediastinum: Mediastinal contours are normal. Heart size is normal. Bones and chest wall: No suspicious bony abnormalities. Soft tissues appear unremarkable. IMPRESSION: Negative chest. No acute cardiopulmonary process is evident. Dictated by: Ken Underwood M.D. on 09/29/2019 at 15:30 Approved by: Ken Underwood M.D. on 09/29/2019 at 15:30
[2019-09-29] MEDS: SODIUM CHLORIDE 0.9% 1,000 ML 250 ML IV ×2 (15:52→18:33)
[2019-09-29] MEDS: INSULIN DRIP PREMIX 100 UNIT/100 ML PLAST..BAG 6 UNIT IV (15:54)
[2019-09-29 16:40] VITALS: BP 134/89; PULSE 133; RESP 18; O2SAT 97
--- NOTE | 2019-09-29 16:44 | ED.SKABFB ---
HPI - Skin/Abscess/Foreign Bdy <Tang SHARYN Dominguez - Last Filed: 09/29/19 19:38> General Chief complaint: Skin/Abscess/Foreign Body Stated complaint: growth on head/painful,diabetes Time Seen by Provider: 09/29/19 13:44 Source: patient Mode of arrival: Ambulatory Limitations: no limitations History of Present Illness HPI narrative: This is a 29-year-old female, nonsmoker, who presents to ED with mother with chief complain of generalized body aches, dehydration, painful lesion on scalp for last 2 days. Patient reports she has history of type 1 diabetes since age 4.5 year old and is currently taking insulin for short-acting as sliding scale this morning at 8:00 a.m. with breakfast and also long-acting (Tresiba) 40 units at 11:30 a.m. today. Patient reports recent sugar has been running up and down but average in 250 mg/dL and states she has been compliant with insulin dose and frequency. Patient denies cough, sore throat, runny nose, abdominal pain, nausea, vomiting, fever or chills. Reports painful scalp lesion when she brushed her hair and it got tangled. Related Data Home Medications Medication Instructions Recorded Confirmed Glucagon Emergency Kit (human) 1 mg SUBCUT DIRECTED 02/16/19 03/16/19 cholecalciferol (vitamin D3) 2,000 unit PO DAILY 02/16/19 03/16/19 [Vitamin D3] ergocalciferol (vitamin D2) 50,000 unit PO QWEEK 02/16/19 03/16/19 [Vitamin D2] norethindrone (contraceptive) 0.35 mg PO DAILY 02/16/19 03/16/19 [[place]] nystatin 1 applic TOPICAL DIRECTED 03/16/19 03/16/19 Previous Rx's Medication Instructions Recorded glucose 4 gram PO Q15M PRN #30 tab 12/12/18 Bacid 1 ea PO TIDWM #42 tab 03/02/19 insulin lispro [Humalog KwikPen See Rx Instructions .ROUTE 03/10/19 Insulin] .COMPLEX #0 ml Allergies Allergy/AdvReac Type Severity Reaction Status Date / Time abdalla [ABDALLA] Allergy Intermediate Hives, Verified 02/24/19 08:00 pruritus iodine [IODINE] Allergy Intermediate rash, itchy Verified 02/24/19 08:00 morphine Allergy Intermediate Difficulty Verified 02/24/19 08:00 Breathing shellfish derived Allergy Intermediate rash Verified 02/24/19 08:00 [SHELLFISH DERIVED] adhesive [ADHESIVE] Allergy Unknown tape Verified 02/24/19 08:00 latex [LATEX] Allergy Unknown Hives Verified 02/24/19 08:00 Review of Systems <SHARYN Walters - Last Filed: 09/29/19 19:38> Review of Systems Narrative: General: Denies fever, chills, fatigue, malaise, sweats. HEENT: Denies sinus pain, ear pain, sore throat, difficulty swallowing, dizziness. Respiratory: Denies dyspnea, cough, wheezing, hemoptysis, sputum. Cardiovascular: Denies chest pain, palpitations, orthopnea, edema. Gastrointestinal: Denies nausea, vomiting, abdominal pain, diarrhea, constipation, melena. : Denies dysuria, frequency, incontinence, hematuria, urinary retention. Musculoskeletal: See HPI Skin: See HPI Neurologic: Denies weakness, headache, numbness, change in speech, confusion, seizures, incoordination. Psychiatric: No concerning psychosocial issues. 12-point review of systems is negative except for those stated above. Patient History <SHARYN Walters - Last Filed: 09/29/19 19:38> Medical History DKA (diabetic ketoacidoses) (Resolved) History of pyelonephritis (Resolved) Irregular menstrual cycle (Acute) Migraine headache (Chronic) Nephrolithiasis (Resolved) Type 1 diabetes mellitus (Chronic) Surgical History History of ureter stent (Resolved) Status post laser lithotripsy of ureteral calculus (Acute) [place] teeth extracted (Acute) Family History Father In good health Mother Cardiac disease Social History details: Engaged household members: significant other and family Smoking Status: Never smoker alcohol intake: never Smoking Status: Never smoker alcohol intake frequency: holidays/special occasions only Substance Use Type: does not use Exam <Tang SHARYN Dominguez - Last Filed: 09/29/19 19:38> Narrative Exam Narrative: GEN: Alert, oriented x 3, ill appearing, well nourished, and in no acute distress. Head: Normal cephalic, atraumatic. #1- In anterior middle scalp with 1 x 0.5 cm elevated lesion with induration with mild erythema and edema. Lesion is covered with thick scab which is exquisite diffusely tender to palpate or movement of hairs. #[id number] frontal had with 0.5 x 0.25 cm smaller dry lesion without elevation or edema in surrounding tissue with superficial scab. There's no temporal tenderness or other rash noted. EYES: Pupils are equal, round, and reactive to light and accommodation. Extraocular muscles are intact bilaterally. There is no subconjunctival hemorrhage, exudate and sclera non-icteric. ENT: Bilateral auditory canals and tympanic membranes clear. Hearing grossly intact. Nose without bleeding, purulent discharge or deviation. Facial sinuses nontender to palpate. Mucous membrane severely dry with no mucosal lesion. Throat without erythema, tonsillar hypertrophy or exudate. Uvula in midline, airway patent. Cheilitis in bilateral corner of mouth. Neck: Trachea in midline. No JVD, non-tender without lymphadenopathy. No masses or thyroid megaly. Supple, non-tender and no meningeal signs. CARDIAC: Normal regular tachy rate and normal rhythm without murmurs, gallops, or rubs. No chest wall tenderness. No peripheral edema, cyanosis. Capillary refill is less than 2 seconds. RESPIRATORY: Lungs are clear to auscultate bilaterally. No cough, wheezes, rales, or rhonchi. No stridor. Kussmaul respirations appreciated. ABD: Abdomen soft, nontender and non-distended. No guarding or rebound tenderness to palpate. Bowel sounds are normal in all 4 quadrants. There is no palpable masses or organomegaly. EXT: Full painless ROM of all extremities with no loss of sensation, strength, effusion or edema. SKIN: Warm, dry, pale in color. No erythema, lesions or rash over visible areas. BACK: Nontender without deformity or crepitance. No flank tenderness. NEUROLOGICAL: Alert and oriented to place, time and person. Sensation and motor function intact bilaterally. No facial droops, dysphasia. PSYCHIATRIC: No hallucinations, abnormal affect or abnormal behaviors during the examination. Patient frequently in tears during initial encounter. Initial Vital Signs Initial Vital Signs: Vital Signs Temperature 98.1 F 09/29/19 13:48 Pulse Rate 134 H 09/29/19 13:48 Respiratory Rate 09/29/19 13:48 Blood Pressure 131/86 09/29/19 13:48 Pulse Oximetry 98 09/29/19 13:48 <Chandu Peters DO - Last Filed: 09/30/19 07:11> Initial Vital Signs Initial Vital Signs: Vital Signs Temperature 98.1 F 09/29/19 13:48 Pulse Rate 134 H 09/29/19 13:48 Respiratory Rate 09/29/19 13:48 Blood Pressure 131/86 09/29/19 13:48 Pulse Oximetry 98 09/29/19 13:48 Scores <KAIT WaltersP - Last Filed: 09/29/19 19:38> GCS Alex coma scale eye opening: Spontaneous [place] coma scale verbal response: Orientated Alex coma scale motor response: Obey commands [place] coma scale total score: 15 qSOFA Altered Mental Status (GCS <15): No Respiratory rate greater than/equal to 22: Yes Systolic blood pressure less than or equal to 100: No qSOFA Total: 1 0-1 Not High Risk 1-3 High risk Course <KAIT WaltersP - Last Filed: 09/29/19 19:38> Orders Ordered: Heparin Sodium (Porcine) (Heparin) 5,000 unit SUBCUT BID [facility] Last Admin: 09/29/19 21:00 Dose: Not Given Documented by: ESPERANZA Hydromorphone HCl (Dilaudid) 1 mg IV Q3H PRN PRN Reason: Pain, Severe (7-10) Last Admin: 09/30/19 04:16 Dose: 1 mg Documented by: Admin: 09/30/19 00:48 Dose: 1 mg Documented by: Admin: 09/29/19 22:10 Dose: 1 mg Documented by: Admin: 09/29/19 19:11 Dose: 1 mg Documented by: ESPERANZA INSULIN DRIP PREMIX (Myxredlin Drip Premix) 100 unit in 100 mls @ 6 mls/hr IV TITRATE [facility]; Protocol Last Titration: 09/30/19 07:04 Dose: 0.9 ml/hr, 0.9 mls/hr Documented by: YAMILETH Cosigned by: POLI Titration: 09/30/19 06:07 Dose: 2.3 ml/hr, 2.3 mls/hr Documented by: YAMILETH Cosigned by: POLI Titration: 09/30/19 02:59 Dose: 3.7 ml/hr, 3.7 mls/hr Documented by: ESPERANZA Cosigned by: POLI Titration: 09/29/19 22:00 Dose: 3.7 ml/hr, 3.7 mls/hr Documented by: ESPERANZA Cosigned by: POLI Titration: 09/29/19 20:12 Dose: 4.6 ml/hr, 4.6 mls/hr Documented by: ESPERANZA Cosigned by: LUIS EDUARDO Titration: 09/29/19 17:08 Dose: 7 ml/hr, 7 mls/hr Documented by: ESPERANZA Cosigned by: JUANCARLOS Admin: 09/29/19 15:54 Dose: 6 ml/hr, 6 mls/hr Documented by: CANDE Cosigned by: GIRISH Ceftriaxone Sodium/Dextrose (Rocephin) 1 gm in 50 mls @ 100 mls/hr IV Q24H [facility] Last Infusion: 09/29/19 20:54 Dose: 0 mls/hr Documented by: Admin: 09/29/19 17:47 Dose: 100 mls/hr Documented by: ESPERANZA Dextrose/Sodium Chloride (Dextrose 5%-0.45% Ns) 1,000 mls @ 200 mls/hr IV CONT [facility] Last Infusion: 09/30/19 06:54 Dose: 100 mls/hr Documented by: Admin: 09/30/19 02:49 Dose: 200 mls/hr Documented by: Infusion: 09/30/19 02:49 Dose: 200 mls/hr Documented by: Admin: 09/29/19 22:07 Dose: 200 mls/hr Documented by: ESPERANZA Piperacillin/Tazobactam/Dextrose (Zosyn) 3.375 gm in 50 mls @ 100 mls/hr IV Q8H [facility] Last Infusion: 09/30/19 06:28 Dose: 0 mls/hr Documented by: Admin: 09/30/19 05:53 Dose: 100 mls/hr Documented by: YAMILETH Metoclopramide HCl (Reglan) 5 mg IV Q6HR PRN PRN Reason: Nausea And Vomiting Naloxone HCl (Narcan) 0.2 mg IV Q2MIN PRN PRN Reason: Opiate Reversal Stored In Pharmacy 0 each PO . [facility] Ondansetron HCl (Zofran) 4 mg IV Q8HR PRN PRN Reason: Nausea And Vomiting Last Admin: 09/29/19 17:46 Dose: 4 mg Documented by: ESPERANZA Discontinued Medications Hydromorphone HCl (Dilaudid) 0.5 mg IV NOW ONE Stop: 09/29/19 14:42 Last Admin: 09/29/19 14:53 Dose: 0.5 mg Documented by: CANDE Hydromorphone HCl (Dilaudid) 1 mg IV Q3H ONE Stop: 09/29/19 17:18 Last Admin: 09/29/19 17:26 Dose: 1 mg Documented by: ESPERANZA Sodium Chloride (Normal Saline 0.9%) 1,000 mls @ 1,000 mls/hr IV BOLUS ONE Stop: 09/29/19 14:52 Last Infusion: 09/29/19 15:31 Dose: 0 mls/hr Documented by: Admin: 09/29/19 14:24 Dose: 1,000 mls/hr Documented by: CANDE Sodium Chloride (Normal Saline 0.9%) 1,000 mls @ 250 mls/hr IV CONT [facility] Last Infusion: 09/29/19 19:49 Dose: 200 mls/hr Documented by: Admin: 09/29/19 18:33 Dose: 250 mls/hr Documented by: Infusion: 09/29/19 18:32 Dose: 999 mls/hr Documented by: Admin: 09/29/19 17:31 Dose: 999 mls/hr Documented by: Infusion: 09/29/19 17:18 Dose: 999 mls/hr Documented by: Infusion: 09/29/19 16:26 Dose: 999 mls/hr Documented by: Admin: 09/29/19 15:52 Dose: 250 mls/hr Documented by: CANDE Sodium Chloride (Normal Saline 0.45%) 1,000 mls @ 100 mls/hr IV CONT [facility] Last Admin: 09/29/19 20:12 Dose: 200 mls/hr Documented by: ESPERANZA Lidocaine/Epinephrine (Xylocaine 1% W/Epi) 2 ml SUBCUT NOW ONE Stop: 09/29/19 14:42 Last Admin: 09/29/19 14:53 Dose: 2 ml Documented by: CANDE Pantoprazole Sodium (Protonix) 20 mg IV NOW ONE Stop: 09/29/19 17:33 Last Admin: 09/29/19 17:50 Dose: 20 mg Documented by: ESPERANZA Consultations Consultation #1: Dr. Weinberg kindly accepted the patient's care. Advised to infuse 2nd liter NS at bolus. Admitted to ICU for DKA. Time: 16:25 Vital Signs Vital signs: Vital Signs - 8 hr 09/29/19 13:48 09/29/19 15:32 09/29/19 16:40 Temperature 98.1 F Pulse Rate 134 H 124 H 133 H Respiratory Rate 20 20 18 Blood Pressure 131/86 Blood Pressure [Right Arm] 125/77 134/89 Pulse Oximetry 98 100 97 <Chandu Peters DO - Last Filed: 09/30/19 07:11> Orders Ordered: Heparin Sodium (Porcine) (Heparin) 5,000 unit SUBCUT BID [facility] Last Admin: 09/29/19 21:00 Dose: Not Given Documented by: ESPERANZA Hydromorphone HCl (Dilaudid) 1 mg IV Q3H PRN PRN Reason: Pain, Severe (7-10) Last Admin: 09/30/19 04:16 Dose: 1 mg Documented by: Admin: 09/30/19 00:48 Dose: 1 mg Documented by: Admin: 09/29/19 22:10 Dose: 1 mg Documented by: Admin: 09/29/19 19:11 Dose: 1 mg Documented by: ESPERANZA INSULIN DRIP PREMIX (Myxredlin Drip Premix) 100 unit in 100 mls @ 6 mls/hr IV TITRATE [facility]; Protocol Last Titration: 09/30/19 07:04 Dose: 0.9 ml/hr, 0.9 mls/hr Documented by: YAMILETH Cosigned by: POLI Titration: 09/30/19 06:07 Dose: 2.3 ml/hr, 2.3 mls/hr Documented by: YAMILETH Cosigned by: POLI Titration: 09/30/19 02:59 Dose: 3.7 ml/hr, 3.7 mls/hr Documented by: ESPERANZA Cosigned by: POLI Titration: 09/29/19 22:00 Dose: 3.7 ml/hr, 3.7 mls/hr Documented by: ESPERANZA Cosigned by: POLI Titration: 09/29/19 20:12 Dose: 4.6 ml/hr, 4.6 mls/hr Documented by: ESPERANZA Cosigned by: LUIS EDUARDO Titration: 09/29/19 17:08 Dose: 7 ml/hr, 7 mls/hr Documented by: ESPERANZA Cosigned by: JUANCARLOS Admin: 09/29/19 15:54 Dose: 6 ml/hr, 6 mls/hr Documented by: CANDE Cosigned by: GIRISH Ceftriaxone Sodium/Dextrose (Rocephin) 1 gm in 50 mls @ 100 mls/hr IV Q24H [facility] Last Infusion: 09/29/19 20:54 Dose: 0 mls/hr Documented by: Admin: 09/29/19 17:47 Dose: 100 mls/hr Documented by: ESPERANZA Dextrose/Sodium Chloride (Dextrose 5%-0.45% Ns) 1,000 mls @ 200 mls/hr IV CONT [facility] Last Infusion: 09/30/19 06:54 Dose: 100 mls/hr Documented by: Admin: 09/30/19 02:49 Dose: 200 mls/hr Documented by: Infusion: 09/30/19 02:49 Dose: 200 mls/hr Documented by: Admin: 09/29/19 22:07 Dose: 200 mls/hr Documented by: ESPERANZA Piperacillin/Tazobactam/Dextrose (Zosyn) 3.375 gm in 50 mls @ 100 mls/hr IV Q8H [facility] Last Infusion: 09/30/19 06:28 Dose: 0 mls/hr Documented by: Admin: 09/30/19 05:53 Dose: 100 mls/hr Documented by: YAMILETH Metoclopramide HCl (Reglan) 5 mg IV Q6HR PRN PRN Reason: Nausea And Vomiting Naloxone HCl (Narcan) 0.2 mg IV Q2MIN PRN PRN Reason: Opiate Reversal Stored In Pharmacy 0 each PO . [facility] Ondansetron HCl (Zofran) 4 mg IV Q8HR PRN PRN Reason: Nausea And Vomiting Last Admin: 09/29/19 17:46 Dose: 4 mg Documented by: ESPERANZA Discontinued Medications Hydromorphone HCl (Dilaudid) 0.5 mg IV NOW ONE Stop: 09/29/19 14:42 Last Admin: 09/29/19 14:53 Dose: 0.5 mg Documented by: CANDE Hydromorphone HCl (Dilaudid) 1 mg IV Q3H ONE Stop: 09/29/19 17:18 Last Admin: 09/29/19 17:26 Dose: 1 mg Documented by: ESPERANZA Sodium Chloride (Normal Saline 0.9%) 1,000 mls @ 1,000 mls/hr IV BOLUS ONE Stop: 09/29/19 14:52 Last Infusion: 09/29/19 15:31 Dose: 0 mls/hr Documented by: Admin: 09/29/19 14:24 Dose: 1,000 mls/hr Documented by: CANDE Sodium Chloride (Normal Saline 0.9%) 1,000 mls @ 250 mls/hr IV CONT [facility] Last Infusion: 09/29/19 19:49 Dose: 200 mls/hr Documented by: Admin: 09/29/19 18:33 Dose: 250 mls/hr Documented by: Infusion: 09/29/19 18:32 Dose: 999 mls/hr Documented by: Admin: 09/29/19 17:31 Dose: 999 mls/hr Documented by: Infusion: 09/29/19 17:18 Dose: 999 mls/hr Documented by: Infusion: 09/29/19 16:26 Dose: 999 mls/hr Documented by: Admin: 09/29/19 15:52 Dose: 250 mls/hr Documented by: CANDE Sodium Chloride (Normal Saline 0.45%) 1,000 mls @ 100 mls/hr IV CONT [facility] Last Admin: 09/29/19 20:12 Dose: 200 mls/hr Documented by: ESPERANZA Lidocaine/Epinephrine (Xylocaine 1% W/Epi) 2 ml SUBCUT NOW ONE Stop: 09/29/19 14:42 Last Admin: 09/29/19 14:53 Dose: 2 ml Documented by: CANDE Pantoprazole Sodium (Protonix) 20 mg IV NOW ONE Stop: 09/29/19 17:33 Last Admin: 09/29/19 17:50 Dose: 20 mg Documented by: ESPERANZA Vital Signs Vital signs: Vital Signs - 8 hr 09/29/19 13:48 09/29/19 15:32 09/29/19 16:40 Temperature 98.1 F Pulse Rate 134 H 124 H 133 H Respiratory Rate 20 20 18 Blood Pressure 131/86 Blood Pressure [Right Arm] 125/77 134/89 Pulse Oximetry 98 100 97 MDM - Skin/Abscess/Foreign Bdy <SHARYN Walters - Last Filed: 09/29/19 19:38> Differential Diagnosis Differential diagnosis: Likely abscess of skin or subcutaneous tissue, impetigo and other (Cellulitis, DKA, skin CA) Medical Records Attestation: I reviewed the patient's medical records. Lab Data Attestation: I reviewed the patient's lab results. Result diagrams: 09/29/19 14:42 09/30/19 04:45 Labs: Lab Results 09/29/19 09/29/19 09/29/19 Range/Units 14:42 14:42 14:42 WBC 14.4 H (4.5-11.0) X10^3/uL RBC 4.28 (4.0-5.2) X10^6/uL Hgb 14.2 (12.0-16.0) g/dL Hct 43.4 (36-46) % MCV 101.3 H (80-100) fL MCH 33.1 (26-34) PG MCHC 32.7 (30-36) % RDW 13.2 (11.6-14.8) % Plt Count 476 H (150-400) X10^3/uL Neut % (Auto) 77.2 H (50-75) % Lymph % (Auto) 14.2 L (25-40) % [place] % (Auto) 7.2 (3-14) % Eos % (Auto) 0.1 L (2-4) % Baso % (Auto) 1.3 (0-2) % Neut # (Auto) 61623 H (1424-7240) /uL Lymph # (Auto) 2000 (5133-4953) /uL [place] # (Auto) 1000 H (0-900) /uL Eos # (Auto) 0 (0-450) /uL Baso # (Auto) 200 H (0-100) /uL VBG pH (7.33-7.43) VBG pCO2 (45-50) mmHg VBG pO2 (35-45) mmHg VBG HCO3 (23-28) mmol/L VBG Total CO2 (24-29) mmol/L VBG O2 Saturation (70-75) % VBG Base Excess (0-4) mmol/L Sodium 140 (137-145) mmol/L Potassium 4.5 (3.4-5.1) mmol/L Chloride 104 (98-107) mmol/L Carbon Dioxide < 5 L* (22-32) mmol/L BUN 23 H (7-17) mg/dL Creatinine 0.91 (0.52-1.04) mg/dL Estimated GFR > 60.0 (>60) mL/min BUN/Creatinine Ratio 25.3 H (6-22) Glucose 631 H* (70-100) mg/dL Lactate (0.7-2.1) mmol/L Calcium 9.8 (8.4-10.2) mg/dL Phosphorus (2.5-4.5) mg/dL Magnesium (1.6-2.3) mg/dL Total Bilirubin 0.3 (0.2-1.3) mg/dL AST 16 (14-36) IU/L ALT 13 (<35) IU/L Alkaline Phosphatase 214 H (38-126) U/L Total Protein 7.8 (6.3-8.2) g/dL Albumin 4.4 (3.5-5.0) g/dL Globulin 3.4 (1.7-4.1) g/dL Albumin/Globulin Ratio 1.3 (1.0-2.8) Procalcitonin 0.28 (<0.5) ng/mL Ketones 16.10 H (<0.27) mmol/L 09/29/19 09/29/19 09/29/19 Range/Units 14:42 14:42 14:42 WBC (4.5-11.0) X10^3/uL RBC (4.0-5.2) X10^6/uL Hgb (12.0-16.0) g/dL Hct (36-46) % MCV (80-100) fL MCH (26-34) PG MCHC (30-36) % RDW (11.6-14.8) % Plt Count (150-400) X10^3/uL Neut % (Auto) (50-75) % Lymph % (Auto) (25-40) % [place] % (Auto) (3-14) % Eos % (Auto) (2-4) % Baso % (Auto) (0-2) % Neut # (Auto) (8352-1679) /uL Lymph # (Auto) (3951-5558) /uL [place] # (Auto) (0-900) /uL Eos # (Auto) (0-450) /uL Baso # (Auto) (0-100) /uL VBG pH 7.03 L* (7.33-7.43) VBG pCO2 15.0 L (45-50) mmHg VBG pO2 62 H (35-45) mmHg VBG HCO3 4 L (23-28) mmol/L VBG Total CO2 < 5 L (24-29) mmol/L VBG O2 Saturation 79 H (70-75) % VBG Base Excess -27.0 L (0-4) mmol/L Sodium (137-145) mmol/L Potassium (3.4-5.1) mmol/L Chloride (98-107) mmol/L Carbon Dioxide (22-32) mmol/L BUN (7-17) mg/dL Creatinine (0.52-1.04) mg/dL Estimated GFR (>60) mL/min BUN/Creatinine Ratio (6-22) Glucose (70-100) mg/dL Lactate 0.9 (0.7-2.1) mmol/L Calcium (8.4-10.2) mg/dL Phosphorus 6.4 H (2.5-4.5) mg/dL Magnesium 2.4 H (1.6-2.3) mg/dL Total Bilirubin (0.2-1.3) mg/dL AST (14-36) IU/L ALT (<35) IU/L Alkaline Phosphatase (38-126) U/L Total Protein (6.3-8.2) g/dL Albumin (3.5-5.0) g/dL Globulin (1.7-4.1) g/dL Albumin/Globulin Ratio (1.0-2.8) Procalcitonin (<0.5) ng/mL Ketones (<0.27) mmol/L Point of Care Testing Glucose POC 500 Imaging Data Chest x-ray: Radiologist's Impression: [address] [address] XRay Report Signed Patient: Sarabjit Jimenes MMR#: [id number] : 1990Acct:[id number] Age/Sex: FDate of Service: 09/29/19 Loc: ED Accession Number: [id number] Procedure: XR chest 2V Ordering Provider: Tang Dominguez PROCEDURE: XR CHEST 2V INDICATIONS: DKA TECHNIQUE: 2 views of the chest were acquired. COMPARISON: [facility], CR, XR CHEST 1V, 03/08/2019, 13:40. [facility], CR, XR CHEST 2V, 02/03/2018, 21:18. [facility], CR, CHEST 2 VIEW, 12/13/2013, 13:51. [facility], , CHEST 2 VIEW, 03/02/2013, 14:10. FINDINGS: Surgical changes and devices: None. Lungs and pleura: Lungs are clear. No pleural effusions or pneumothorax. Mediastinum: Mediastinal contours are normal. Heart size is normal. Bones and chest wall: No suspicious bony abnormalities. Soft tissues appear unremarkable. IMPRESSION: Negative chest. No acute cardiopulmonary process is evident. Dictated by: Ken Underwood M.D. on 09/29/2019 at 15:30 Approved by: Ken Underwood M.D. on 09/29/2019 at 15:30 ECG Data Attestation: I personally reviewed and interpreted this ECG as follows: Prior ECG tracings: available for review Interpretation: Sinus tachycardia rate at 125. Normal [place]. [place] interval 154, QRS duration 66, QT/QTC 306/441. Nonspecific T-wave abnormality. No significant changes from previous EKG tracing MDM Narrative Medical decision making narrative: This is a 29 year female who has a history of type 1 diabetes since age 4.5 year-old who states has been compliant with Insuline long acting and short acting SS dose presents to ED with generalized bodyaches, dehydration, scalp lesions for 2 days. Several visits to ED in the past with DKA. Patient is afebrile, in 120s, Kussmaul breathing rate at 20's, with normal BP. Lung sounds are clear to auscultate. Abdominal exam is unremarkable. There is no nausea or vomiting. Finger stick BG was too high to process upon arrival. Serum glucose initally was 631 mg/dL. CO2 <5 with elevated BUN of 23. K is 4.5 with normal sodium of 140. Elevated phosphorus of 6.4 with magnesium of 2.4. Elevated alkaline phosphatase of 214 with normal AST and ALT with total bilirubin. No elevation in lactate which was 0.9. Procalcitonin was 0.28. Leukocytosis of 14.4 with mildly elevated neutrophil of 77.2%. Platelet count is 476. Ketones 16.10 (<0.27). VBG result as pH 7.03, pCO2 15, pO2 62, HCO3 4, total CO2 <5 and O2 sat at 79. Base Excess of -27 (0-4): uncompensated met acidosis Chest x-ray indicated no acute findings. Covid test was not obtained since patient does not have any respiratory symptoms, nausea/vomiting, fever, sore throat, rhinorrhea, known exposure to Covid 19. Patient was unable to provide urine test for UA or . Explored anterior mid scalp lesion after locally anesthetized with Lidocaine with epi to removed thick scab but unable to. Attempted to aspirate any fluid adjacent to scabbed lesion but there is no obvious purulent discharge appreciated. Mostly scant amount of blood obtained and sent out for wound culture. Patient received 2 L of normal saline infusion at bolus rate. After normal potassium was verified, started insulin drip. Patient provided with one dose of Dilaudid 0.5 mg and she was able to rest a little. At this time, unable to find source of infection despite elevated white count. Assuring normal lactate and procalcitonin. Dr. Weinberg kindly accepted patient for DKA treatment with insulin drip and IV hydration. Scab lesion waiting for wound culture result and may need further evaluation. Antibiotic medication has not been provided during ED stay. <Chandu Peters DO - Last Filed: 09/30/19 07:11> Lab Data Labs: Lab Results 09/29/19 09/29/19 09/29/19 Range/Units 14:42 14:42 14:42 WBC 14.4 H (4.5-11.0) X10^3/uL RBC 4.28 (4.0-5.2) X10^6/uL Hgb 14.2 (12.0-16.0) g/dL Hct 43.4 (36-46) % MCV 101.3 H (80-100) fL MCH 33.1 (26-34) PG MCHC 32.7 (30-36) % RDW 13.2 (11.6-14.8) % Plt Count 476 H (150-400) X10^3/uL Neut % (Auto) 77.2 H (50-75) % Lymph % (Auto) 14.2 L (25-40) % [place] % (Auto) 7.2 (3-14) % Eos % (Auto) 0.1 L (2-4) % Baso % (Auto) 1.3 (0-2) % Neut # (Auto) 88465 H (0137-0999) /uL Lymph # (Auto) 2000 (5803-1784) /uL [place] # (Auto) 1000 H (0-900) /uL Eos # (Auto) 0 (0-450) /uL Baso # (Auto) 200 H (0-100) /uL VBG pH (7.33-7.43) VBG pCO2 (45-50) mmHg VBG pO2 (35-45) mmHg VBG HCO3 (23-28) mmol/L VBG Total CO2 (24-29) mmol/L VBG O2 Saturation (70-75) % VBG Base Excess (0-4) mmol/L Sodium 140 (137-145) mmol/L Potassium 4.5 (3.4-5.1) mmol/L Chloride 104 (98-107) mmol/L Carbon Dioxide < 5 L* (22-32) mmol/L BUN 23 H (7-17) mg/dL Creatinine 0.91 (0.52-1.04) mg/dL Estimated GFR > 60.0 (>60) mL/min BUN/Creatinine Ratio 25.3 H (6-22) Glucose 631 H* (70-100) mg/dL Lactate (0.7-2.1) mmol/L Calcium 9.8 (8.4-10.2) mg/dL Phosphorus (2.5-4.5) mg/dL Magnesium (1.6-2.3) mg/dL Total Bilirubin 0.3 (0.2-1.3) mg/dL AST 16 (14-36) IU/L ALT 13 (<35) IU/L Alkaline Phosphatase 214 H (38-126) U/L Total Protein 7.8 (6.3-8.2) g/dL Albumin 4.4 (3.5-5.0) g/dL Globulin 3.4 (1.7-4.1) g/dL Albumin/Globulin Ratio 1.3 (1.0-2.8) Procalcitonin 0.28 (<0.5) ng/mL Ketones 16.10 H (<0.27) mmol/L 09/29/19 09/29/19 09/29/19 Range/Units 14:42 14:42 14:42 WBC (4.5-11.0) X10^3/uL RBC (4.0-5.2) X10^6/uL Hgb (12.0-16.0) g/dL Hct (36-46) % MCV (80-100) fL MCH (26-34) PG MCHC (30-36) % RDW (11.6-14.8) % Plt Count (150-400) X10^3/uL Neut % (Auto) (50-75) % Lymph % (Auto) (25-40) % [place] % (Auto) (3-14) % Eos % (Auto) (2-4) % Baso % (Auto) (0-2) % Neut # (Auto) (3421-9224) /uL Lymph # (Auto) ([id number]) /uL [place] # (Auto) (0-900) /uL Eos # (Auto) (0-450) /uL Baso # (Auto) (0-100) /uL VBG pH 7.03 L* (7.33-7.43) VBG pCO2 15.0 L (45-50) mmHg VBG pO2 62 H (35-45) mmHg VBG HCO3 4 L (23-28) mmol/L VBG Total CO2 < 5 L (24-29) mmol/L VBG O2 Saturation 79 H (70-75) % VBG Base Excess -27.0 L (0-4) mmol/L Sodium (137-145) mmol/L Potassium (3.4-5.1) mmol/L Chloride (98-107) mmol/L Carbon Dioxide (22-32) mmol/L BUN (7-17) mg/dL Creatinine (0.52-1.04) mg/dL Estimated GFR (>60) mL/min BUN/Creatinine Ratio (6-22) Glucose (70-100) mg/dL Lactate 0.9 (0.7-2.1) mmol/L Calcium (8.4-10.2) mg/dL Phosphorus 6.4 H (2.5-4.5) mg/dL Magnesium 2.4 H (1.6-2.3) mg/dL Total Bilirubin (0.2-1.3) mg/dL AST (14-36) IU/L ALT (<35) IU/L Alkaline Phosphatase (38-126) U/L Total Protein (6.3-8.2) g/dL Albumin (3.5-5.0) g/dL Globulin (1.7-4.1) g/dL Albumin/Globulin Ratio (1.0-2.8) Procalcitonin (<0.5) ng/mL Ketones (<0.27) mmol/L Point of Care Testing Glucose POC 500 Discharge Plan Departure Patient Disposition: Admitted As Inpatient Clinical Impression: DKA (diabetic ketoacidoses) Qualifiers: Diabetes mellitus type: type 1 Diabetes mellitus complication detail: without coma Qualified Code(s): E10.10 - Type 1 diabetes mellitus with ketoacidosis without coma Discharge Date/Time: 09/29/19 16:50 Admit Date/Time: 09/29/19 16:42 Admit Provider: Julio Cesar Weinberg <Chandu Peters, - Last Filed: 09/30/19 07:11> Cosign ED Attending Cosignature Attestation: Dr Lanker Co-Sign Statement: I was available for consultation during this patient's emergency department visit. This chart is signed by myself for administrative purposes only. I did not have direct contact with this patient during this visit. They were seen independently by the APC.
[2019-09-29 17:07] VITALS: BMI 21.1
[2019-09-29] MEDS: HYDROMORPHONE 1 MG INJ IV ×3 (17:26→22:10)
[2019-09-29] MEDS: SODIUM CHLORIDE 0.9% 1,000 ML 999 ML IV (17:31)
--- NOTE | 2019-09-29 17:31 | PM.HP.1 ---
History of Present Illness History of Present Illness Date Patient Seen: 09/29/19 Time Patient Seen: 17:41 Date of Onset of Symptoms: 09/27/19 Chief complaint: growth on head/painful,diabetes Narrative: Ms. Sarabjit Jimenes is a 28-year-old female patient with a history significant for type 1 diabetes, migraines, irregular menstruation and prior pyelolithiasis who presents to the ER with complaints of feeling dehydrated and painful lesions on her head. Patient states that about 2 days ago she was combing her hair and noticed that it was painful. She had her fiance look at her head and noticed 2 small lesions, she was not able to see these herself but they continue to be tender. Today, she became increasingly aware that she was quite dehydrated. She denies any recent chest pain, shortness of breath, cough, fever, chills, abdominal pain (however she does intermittently describe diffuse abdominal burning pain), flank pain, dysuria, urinary frequency, or vaginal discharge. She denies any known exposure to COVID-19, and has been socially isolating due to her diabetes. She has a very brittle type 1 diabetic frequent admissions for DKA, however the last admission was approximately 7 months ago. She does not recall her most recent A1c. On arrival in the emergency room, patient appeared dehydrated, tachycardic. She was given 1 L fluid bolus. Initial labs were drawn which showed a leukocytosis of 14.4, platelet of 476, VBG with pH of 7.03 and a bicarb of 4. Chemistries revealed a sodium of 140, potassium of 4.5, CO2 of less than 5, creatinine at 0.91 which is very near her baseline, and a glucose of 631. Phosphorus was 6.4, magnesium 2.4. There is no bilirubin or LFT abnormalities except for a mildly elevated alkaline phosphatase at 214. Procalcitonin was 0.28. Ketones were 16.1. Patient was started on an insulin drip in ordered for 2 more L of fluid bolus. She was taken up to the ICU and admitted to the medicine service for treatment of DKA. Chest imaging was unremarkable. EKG showed a sinus tachycardia without evidence of active ischemia. Patient History Medical History (Updated 09/29/19 @ 16:26 by SHARYN Walters) DKA (diabetic ketoacidoses) (Resolved) History of pyelonephritis (Resolved) Irregular menstrual cycle (Acute) Migraine headache (Chronic) Nephrolithiasis (Resolved) Type 1 diabetes mellitus (Chronic) Surgical History History of ureter stent (Resolved) Status post laser lithotripsy of ureteral calculus (Acute) [place] teeth extracted (Acute) Family & Social History Family History Father In good health Mother Cardiac disease Social History: household members significant other,family Safety & Behavioral: Feels Safe in Current Yes Environment Been Physically Hurt or No Threatened By a Person Tobacco & Substance use: Smoking Status Never smoker alcohol intake never alcohol intake frequency holiday/special occasion Substance Use Type does not use Meds Home Medications and Allergies Home Medications Medication Instructions Recorded Confirmed Type glucose 4 gram PO Q15M PRN #30 tab 12/12/18 03/16/19 Rx Glucagon Emergency Kit (human) 1 mg SUBCUT DIRECTED 02/16/19 03/16/19 History cholecalciferol (vitamin D3) 2,000 unit PO DAILY 02/16/19 03/16/19 History [Vitamin D3] ergocalciferol (vitamin D2) 50,000 unit PO QWEEK 02/16/19 03/16/19 History [Vitamin D2] norethindrone (contraceptive) 0.35 mg PO DAILY 02/16/19 03/16/19 History [[place]] Bacid 1 ea PO TIDWM #42 tab 03/02/19 03/16/19 Rx insulin lispro [Humalog KwikPen See Rx Instructions .ROUTE 03/10/19 03/16/19 Rx Insulin] .COMPLEX #0 ml nystatin 1 applic TOPICAL DIRECTED 03/16/19 03/16/19 History Allergies Allergy/AdvReac Type Severity Reaction Status Date / Time abdalla [ABDALLA] Allergy Intermediate Hives, Verified 02/24/19 08:00 pruritus iodine [IODINE] Allergy Intermediate rash, itchy Verified 02/24/19 08:00 morphine Allergy Intermediate Difficulty Verified 02/24/19 08:00 Breathing shellfish derived Allergy Intermediate rash Verified 02/24/19 08:00 [SHELLFISH DERIVED] adhesive [ADHESIVE] Allergy Unknown tape Verified 02/24/19 08:00 latex [LATEX] Allergy Unknown Hives Verified 02/24/19 08:00 Review of Systems Review of Systems Narrative: All other systems reviewed with the patient and are negative unless otherwise stated. Exam Vital Signs (past 8 hours): - 09/29/19 13:48 09/29/19 15:32 09/29/19 16:40 Temperature 98.1 F Pulse Rate 134 H 124 H 133 H Respiratory Rate 20 20 18 Blood Pressure 131/86 Blood Pressure [Right Arm] 125/77 134/89 Pulse Oximetry 98 100 97 Oxygen Delivery Method Room Air Narrative Exam Narrative: GENERAL APPEARANCE: Acutely ill-appearing young female, but in note acute distress. She is very pale in appearance. SKIN: Inspection of the skin reveals scabbed over lesions x2 over her scalp with mild surrounding erythema and tenderness. HEENT: Normocephalic atraumatic, scalp lesions as noted above. Extraocular muscles are intact, oropharynx is clear and mucous membranes are very dry, neck is supple without adenopathy NECK: Supple and symmetric. There was no thyroid enlargement, and no tenderness, or masses were felt. CHEST: Normal AP diameter and normal contour without any kyphoscoliosis. LUNGS: Auscultation of the lungs revealed no wheezes, rhonchi, or rales. CARDIOVASCULAR: There was a tachycardic rate and regular rhythm without any murmurs, gallops, rubs. Peripheral pulses were 2+ and symmetric. ABDOMEN: Soft and nontender with normal bowel sounds. No ascites was noted. MUSCULOSKELETAL: There was no tenderness or effusions noted. Muscle strength and tone were normal. EXTREMITIES: No cyanosis, clubbing or edema. NEUROLOGIC: Alert and oriented x 3. Normal affect. Gait was normal. Strength is +5/5 in the Upper Extremities and Lower Extremities Bilaterally. Sensation to touch was normal. Objective ECG Impression: Sinus tachycardia without evidence of ischemia. Imaging Chest x-ray: My impression: No acute cardiopulmonary process Radiologist's impression: No acute cardiopulmonary process Labs Result Diagrams: 09/29/19 14:42 09/29/19 14:42 Labs: Laboratory Results - last 24 hr 09/29/19 09/29/19 09/29/19 14:42 14:42 14:42 WBC 14.4 H RBC 4.28 Hgb 14.2 Hct 43.4 MCV 101.3 H MCH 33.1 MCHC 32.7 RDW 13.2 Plt Count 476 H Neut % (Auto) 77.2 H Lymph % (Auto) 14.2 L [place] % (Auto) 7.2 Eos % (Auto) 0.1 L Baso % (Auto) 1.3 Neut # (Auto) 08512 H Lymph # (Auto) 2000 [place] # (Auto) 1000 H Eos # (Auto) 0 Baso # (Auto) 200 H VBG pH VBG pCO2 VBG pO2 VBG HCO3 VBG Total CO2 VBG O2 Saturation VBG Base Excess Sodium 140 Potassium 4.5 Chloride 104 Carbon Dioxide < 5 L* BUN 23 H Creatinine 0.91 Estimated GFR > 60.0 BUN/Creatinine Ratio 25.3 H Glucose 631 H* Lactate Calcium 9.8 Phosphorus Magnesium Total Bilirubin 0.3 AST 16 ALT 13 Alkaline Phosphatase 214 H Total Protein 7.8 Albumin 4.4 Globulin 3.4 Albumin/Globulin Ratio 1.3 Procalcitonin 0.28 Ketones 16.10 H 09/29/19 09/29/19 09/29/19 14:42 14:42 14:42 WBC RBC Hgb Hct MCV MCH MCHC RDW Plt Count Neut % (Auto) Lymph % (Auto) [place] % (Auto) Eos % (Auto) Baso % (Auto) Neut # (Auto) Lymph # (Auto) [place] # (Auto) Eos # (Auto) Baso # (Auto) VBG pH 7.03 L* VBG pCO2 15.0 L VBG pO2 62 H VBG HCO3 4 L VBG Total CO2 < 5 L VBG O2 Saturation 79 H VBG Base Excess -27.0 L Sodium Potassium Chloride Carbon Dioxide BUN Creatinine Estimated GFR BUN/Creatinine Ratio Glucose Lactate 0.9 Calcium Phosphorus 6.4 H Magnesium 2.4 H Total Bilirubin AST ALT Alkaline Phosphatase Total Protein Albumin Globulin Albumin/Globulin Ratio Procalcitonin Ketones Assessment & Plan Assessment & Plan narrative: Ms. Sarabjit Jimenes is a 28-year-old female patient with a history significant for type 1 diabetes, migraines, irregular menstruation and prior pyelolithiasis who presents to the ER with complaints of feeling dehydrated and painful lesions on her head. She is admitted with DKA to the intensive care unit. 1. Type 1 diabetes with diabetic ketoacidosis, acute, present on admission -patient with presenting VBG of pH 7.03, and a bicarb of 4. AG is approximately 32. Serum bicarb is noted to be less than 5. Admission glucose 6 and 31 with elevated ketones. -patient was given 1 L of fluid bolus in the emergency room and started on insulin infusion. Ordered for 2 more L upon arrival to the floor given persistent tachycardia and dehydrated appearance. -continue insulin gtt until glucose is improved, AG has closed, and bicarb is increased. -initial potassium 4.5, will continue to trend BMP q.4 hours -continue telemetry monitoring -q.1 hour fingersticks -NPO but okay for occasional sips and ice chips -source is not entirely clear at this time. UA is currently pending but patient without recent urinary symptoms. Chest x-ray is negative. Patient does have small scalp lesions on her head which were swabbed in the emergency room and cultures are pending. Blood cultures are also pending. 2. scalp folliculitis, acute, present on admission - while NPO will give Ceftriaxone 1g q24 hours - convert to oral therapy when available - wound culture obtained prior to antibiotics, will follow up results. - mild erythema surrounding lesion, will continue to follow while on antibiotics. No obvious fluid collections to drain on exam. 3. History of neurogenic bladder - will bladder scan, no current symptomatology, but previously had 1200 cc of urinary retention. Dispo: Admit to ICU for DKA Code: Full, surrogate decision maker is patient's fiance DVT: HSQ IVF: NS @ 250 cc after fluid boluses. DKA protocol with D5 if still low bicarb and decreased sugars.
[2019-09-29] MEDS: ONDANSETRON 4 MG/2 ML INJ IV (17:46)
[2019-09-29] MEDS: CEFTRIAXONE 1 GM/50 ML FROZ.PIGGY IV (17:47)
[2019-09-29] MEDS: PANTOPRAZOLE 40 MG VIAL 20 MG IV (17:50)
[2019-09-29 19:45] LABS: BUN Creatinine Ratio 26.7 (6-22); Blood Urea Nitrogen 20 mg/dL (7-17); Calcium 8.4 mg/dL (8.4-10.2); Chloride 118 mmol/L (98-107); Estimated Glomerular Filt Rate > 60.0 mL/min (>60); Glucose 303 mg/dL (70-100); HEMOLYSIS < 15 (0-50); Magnesium 1.9 mg/dL (1.6-2.3); Potassium 3.7 mmol/L (3.4-5.1); Sodium 145 mmol/L (137-145)
[2019-09-29 19:46] LABS: Phosphorous 4.1 mg/dL (2.5-4.5)
[2019-09-29 19:55] LABS: Carbon Dioxide 7 mmol/L (22-32)
--- NOTE | 2019-09-29 19:55 | PC.NURSE ---
Addendum entered by Mary Nagel R.N. 09/29/19 21:02: 1653 Pt arrived on unit from ED via gurney, able to ambulate to bed, VSS, normal for pt during DKA. Pt is well known to ICU for occurrences of DKA. Oriented to call light system and room, bed low and locked, Insulin infusing 7units/hr FSBG 446, NS bolus infusing. Call light within reach, will continue to monitor. Original Note: 1954 Zeenat from lab called with critical lab of CO2 7, updated provider Omari Spicer, no new orders at this time.
[2019-09-29] MEDS: SODIUM CHLORIDE 0.45% 1,000 ML 200 ML IV (20:12)
[2019-09-29] MEDS: DEXTROSE 5%-0.45% NS 1,000 ML 200 ML IV (22:07)
[2019-09-30] VITALS (8 sets, daily range): BP systolic 103–118; BP diastolic 56–81; PULSE 102–119; RESP 8–28; TEMP 36.4–37.1; O2SAT 93–100
[2019-09-30] MEDS: HYDROMORPHONE 1 MG INJ IV ×7 (00:48→21:50)
[2019-09-30 01:23] LABS: BUN Creatinine Ratio 27.9 (6-22); Blood Urea Nitrogen 19 mg/dL (7-17); Calcium 8.5 mg/dL (8.4-10.2); Carbon Dioxide 15 mmol/L (22-32); Chloride 118 mmol/L (98-107); Estimated Glomerular Filt Rate > 60.0 mL/min (>60); Glucose 170 mg/dL (70-100); HEMOLYSIS < 15 (0-50); Magnesium 1.9 mg/dL (1.6-2.3); Potassium 3.6 mmol/L (3.4-5.1); Sodium 141 mmol/L (137-145)
[2019-09-30] MEDS: DEXTROSE 5%-0.45% NS 1,000 ML 200 ML IV (02:49)
[2019-09-30 05:02] LABS: Appearance Urine UA CLEAR; Bilirubin Urine UA 1+ (NEGATIVE); Color Urine UA YELLOW; Glucose Urine UA 2+ g/dL (Negative); Ketones Urine UA 2+ (NEGATIVE); Leukocyte Esterase Urine UA TRACE (NEGATIVE); Nitrite Urine UA NEGATIVE (Negative); Occult Blood Urine UA 3+ (Negative); Protein Urine UA 1+ (Negative); Specific Gravity Urine UA 1.015 (1.000-1.035); Urobilinogen Urine UA 0.2 E.U./dL (0.2)
[2019-09-30 05:12] LABS: pH Urine UA 5.5 (4.5-8.0)
[2019-09-30 05:13] LABS: Bacteria Urine Few (2-10); Ictotest Urine Negative (Negative); RBC Urine 5-10/HPF (0-5/HPF); Squamous Epithelial Cell Urine 0-1 /HPF (0-5/HPF); WBC Urine 10-30/HPF (0-5/HPF)
[2019-09-30 05:14] LABS: Culture Indicated Urine Specimen Cultured; Granular Casts Urine 1-5/LPF
[2019-09-30] MEDS: PIPERACILLIN-TAZO 3.375 GM/50 ML FROZ.PIGGY IV ×3 (05:53→21:06)
[2019-09-30 06:06] LABS: Phosphorous 2.7 mg/dL (2.5-4.5)
[2019-09-30 06:28] LABS: BUN Creatinine Ratio 28.8 (6-22); Blood Urea Nitrogen 19 mg/dL (7-17); Calcium 8.6 mg/dL (8.4-10.2); Carbon Dioxide 14 mmol/L (22-32); Chloride 119 mmol/L (98-107); Estimated Glomerular Filt Rate > 60.0 mL/min (>60); Glucose 172 mg/dL (70-100); HEMOLYSIS < 15 (0-50); Magnesium 1.8 mg/dL (1.6-2.3); Potassium 3.5 mmol/L (3.4-5.1); Sodium 141 mmol/L (137-145)
--- NOTE | 2019-09-30 07:08 | DI.US.S_ITS ---
PROCEDURE: US RENAL COMPLETE INDICATIONS: PAIN TECHNIQUE: Real-time scanning was performed of the kidneys and bladder, with image documentation. COMPARISON: [facility], , RENAL COMPLETE, 03/17/2019, 15:36. [facility], , RENAL COMPLETE, 05/12/2015, 17:46. FINDINGS: Kidneys: Kidneys are normal in size. Right kidney measures 10.4 cm long; left kidney measures 11.4 cm long. Right renal cortical thickness is 2.0 cm; left renal cortical thickness is 1.6 cm. Renal cortical echotexture is normal. No hydronephrosis or nephrolithiasis. No suspicious solid mass lesions. Bladder: Pre-void bladder volume is 204 mL. Post-void residual is 0 mL. Pre-void images demonstrate no intraluminal masses or stones. On pre-void images, bilateral ureteral jets are noted with color Doppler interrogation. (Of note, ureteral jets may not be detectable in up to 25% of cases due to insufficient differences in specific gravity between ureteral and bladder urine). Miscellaneous: No free pelvic fluid. IMPRESSION: Normal renal and bladder ultrasound. Source of pain is not seen. Dictated by: Nayan Koroma M.D. on 09/30/2019 at 9:37 Approved by: Nayan Koroma M.D. on 09/30/2019 at 9:37
[2019-09-30 08:05] LABS: Acinetobacter baumannii Not Detected (Not Detect); Enterobacteriaceae species Not Detected (Not Detect); Enterococcus species Not Detected (Not Detect); Listeria monocytogenes Not Detected (Not Detect); Methicillin-resistant gene Not Detected (Not Detect); Staphylococcus species Detected (Not Detect); Streptococcus agalactiae (Gr B Not Detected (Not Detect); Streptococcus pneumonia Not Detected (Not Detect); Streptococcus pyogenes (Gr A) Not Detected (Not Detect); Streptococcus species Not Detected (Not Detect)
[2019-09-30 08:06] LABS: Candida albicans Not Detected (Not Detect); Candida glabrata Not Detected (Not Detect); Candida krusei Not Detected (Not Detect); Candida parapsilosis Not Detected (Not Detect); Candida tropicalis Not Detected (Not Detect); E. coli Not Detected (Not Detect); Enterobacter cloacae complex Not Detected (Not Detect); Haemophilus influenzae Not Detected (Not Detect); Neisseria meningitidis Not Detected (Not Detect); Proteus species Not Detected (Not Detect); Pseudomonas aeruginosa Not Detected (Not Detect); Serratia marcescens Not Detected (Not Detect)
[2019-09-30] MEDS: POTASSIUM CHLORIDE 40 MEQ in SODIUM CHLORIDE 0.9% 500 ML 130 ML IV (08:27)
[2019-09-30] MEDS: HEPARIN 5,000 UNIT/ML VIAL 5000 UNIT SUBCUT ×2 (08:36→21:06)
[2019-09-30] MEDS: DEXTROSE 5%-0.45% NS 1,000 ML 100 ML IV (08:45)
[2019-09-30 11:04] LABS: BUN Creatinine Ratio 25.5 (6-22); Blood Urea Nitrogen 14 mg/dL (7-17); Calcium 8.4 mg/dL (8.4-10.2); Carbon Dioxide 16 mmol/L (22-32); Chloride 115 mmol/L (98-107); Estimated Glomerular Filt Rate > 60.0 mL/min (>60); Glucose 128 mg/dL (70-100); HEMOLYSIS < 15 (0-50); Potassium 3.5 mmol/L (3.4-5.1); Sodium 138 mmol/L (137-145)
--- NOTE | 2019-09-30 11:38 | P.PN_ITS ---
Subjective Subjective Date Patient Seen: 09/30/19 Time Patient Seen: 11:38 Interval history: Ms. Sarabjit Jimenes is a 28-year-old female patient with a history significant for type 1 diabetes, migraines, irregular menstruation and prior pyelolithiasis who is admitted for DKA. She remains on an insulin infusion this morning, and recently her anion gap has closed and her bicarb is above 15 so she will be given her morning dose of Tresiba and started on a diet with plans to discontinue insulin infusion early this afternoon. Yesterday she voided approximately 1400 cc, UA was positive for infection with 10-30 white blood cells, 5-10 RBCs, negative nitrite, and trace leuk esterase. Culture was sent and is currently pending. Yesterday after her urinalysis, she was switched to Zosyn. Patient feels hungry currently and denies any abdominal pain, nausea, vomiting, fevers, chills. She still feels very weak and aches all over. She has not had a fever. She has no dysuria. Given her history of neurogenic bladder she is at risk for urinary tract infections. Blood culture was positive by PCR for Staph aureus, but only in 1 bottle, and this may be a contaminant. Will await final cultures. Patient remains on Zosyn at this time. Exam Vital Signs (past 8 hours): - 09/30/19 04:38 09/30/19 08:00 Temperature 98.3 F 97.8 F Pulse Rate 106 H 104 H Respiratory Rate 11 L 12 Blood Pressure 118/81 110/63 Pulse Oximetry 93 98 Oxygen Delivery Method Room Air Oxygen Flow Rate 0 Narrative Exam Narrative: GENERAL APPEARANCE: Acutely ill-appearing young female, but in note acute distress. She is very pale in appearance. SKIN: Inspection of the skin reveals scabbed over lesions x2 over her scalp with mild surrounding erythema and tenderness. HEENT: Normocephalic atraumatic, scalp lesions as noted above. Extraocular muscles are intact, oropharynx is clear and mucous membranes are very dry, neck is supple without adenopathy NECK: Supple and symmetric. There was no thyroid enlargement, and no tenderness, or masses were felt. CHEST: Normal AP diameter and normal contour without any kyphoscoliosis. LUNGS: Auscultation of the lungs revealed no wheezes, rhonchi, or rales. CARDIOVASCULAR: There was a tachycardic rate and regular rhythm without any murmurs, gallops, rubs. Peripheral pulses were 2+ and symmetric. ABDOMEN: Soft and nontender with normal bowel sounds. No ascites was noted. MUSCULOSKELETAL: There was no tenderness or effusions noted. Muscle strength and tone were normal. EXTREMITIES: No cyanosis, clubbing or edema. NEUROLOGIC: Alert and oriented x 3. Normal affect. Gait was normal. Strength is +5/5 in the Upper Extremities and Lower Extremities Bilaterally. Sensation to touch was normal. Objective Labs Result Diagrams: 09/29/19 14:42 09/30/19 10:42 Labs: Laboratory Results - last 24 hr 09/29/19 09/29/19 09/29/19 14:42 14:42 14:42 WBC 14.4 H RBC 4.28 Hgb 14.2 Hct 43.4 MCV 101.3 H MCH 33.1 MCHC 32.7 RDW 13.2 Plt Count 476 H Neut % (Auto) 77.2 H Lymph % (Auto) 14.2 L Wirt % (Auto) 7.2 Eos % (Auto) 0.1 L Baso % (Auto) 1.3 Neut # (Auto) 16140 H Lymph # (Auto) 2000 Wirt # (Auto) 1000 H Eos # (Auto) 0 Baso # (Auto) 200 H VBG pH VBG pCO2 VBG pO2 VBG HCO3 VBG Total CO2 VBG O2 Saturation VBG Base Excess Sodium 140 Potassium 4.5 Chloride 104 Carbon Dioxide < 5 L* BUN 23 H Creatinine 0.91 Estimated GFR > 60.0 BUN/Creatinine Ratio 25.3 H Glucose 631 H* Lactate Calcium 9.8 Phosphorus Magnesium Total Bilirubin 0.3 AST 16 ALT 13 Alkaline Phosphatase 214 H Total Protein 7.8 Albumin 4.4 Globulin 3.4 Albumin/Globulin Ratio 1.3 Procalcitonin 0.28 Urine Color Urine Appearance Urine pH Ur Specific Justin Urine Protein Urine Glucose (UA) Urine Ketones Urine Occult Blood Urine Nitrate Urine Bilirubin Ur Bilirubin Confirm Urine Urobilinogen Ur Leukocyte Esterase Urine RBC Urine WBC Ur Squamous Epith Cells Urine Bacteria Granular Casts Ur Culture Indicated? Ketones 16.10 H A. baumannii (PCR) [place] albicans (PCR) C. glabrata (PCR) C. krusei (PCR) C. parapsilosis (PCR) C. tropicalis (PCR) Enterobacteriac sp PCR E. cloacae complex PCR Enterococcus sp PCR E. coli (PCR) H. influenzae (PCR) Klebsiella oxytoca PCR Klebsiella pneumoniae List. monocytogenes PCR N. meningitidis (PCR) Proteus species (PCR) Serratia marcescens PCR Staphylococcus sp PCR Staph aureus (PCR) mecA-Methicil Res Gene Streptococcus sp PCR Group A Strep (PCR) Strep agalactiae (PCR) Strep pneumoniae (PCR) P. aeruginosa (PCR) Andi/B-Vanco Res Genes KPC-Carbap Res Gene PCR 09/29/19 09/29/19 09/29/19 14:42 14:42 14:42 WBC RBC Hgb Hct MCV MCH MCHC RDW Plt Count Neut % (Auto) Lymph % (Auto) Wirt % (Auto) Eos % (Auto) Baso % (Auto) Neut # (Auto) Lymph # (Auto) Wirt # (Auto) Eos # (Auto) Baso # (Auto) VBG pH 7.03 L* VBG pCO2 15.0 L VBG pO2 62 H VBG HCO3 4 L VBG Total CO2 < 5 L VBG O2 Saturation 79 H VBG Base Excess -27.0 L Sodium Potassium Chloride Carbon Dioxide BUN Creatinine Estimated GFR BUN/Creatinine Ratio Glucose Lactate 0.9 Calcium Phosphorus 6.4 H Magnesium 2.4 H Total Bilirubin AST ALT Alkaline Phosphatase Total Protein Albumin Globulin Albumin/Globulin Ratio Procalcitonin Urine Color Urine Appearance Urine pH Ur Specific Justin Urine Protein Urine Glucose (UA) Urine Ketones Urine Occult Blood Urine Nitrate Urine Bilirubin Ur Bilirubin Confirm Urine Urobilinogen Ur Leukocyte Esterase Urine RBC Urine WBC Ur Squamous Epith Cells Urine Bacteria Granular Casts Ur Culture Indicated? Ketones A. baumannii (PCR) [place] albicans (PCR) C. glabrata (PCR) C. krusei (PCR) C. parapsilosis (PCR) C. tropicalis (PCR) Enterobacteriac sp PCR E. cloacae complex PCR Enterococcus sp PCR E. coli (PCR) H. influenzae (PCR) Klebsiella oxytoca PCR Klebsiella pneumoniae List. monocytogenes PCR N. meningitidis (PCR) Proteus species (PCR) Serratia marcescens PCR Staphylococcus sp PCR Staph aureus (PCR) mecA-Methicil Res Gene Streptococcus sp PCR Group A Strep (PCR) Strep agalactiae (PCR) Strep pneumoniae (PCR) P. aeruginosa (PCR) Andi/B-Vanco Res Genes KPC-Carbap Res Gene PCR 09/29/19 09/29/19 09/29/19 14:42 19:30 19:30 WBC RBC Hgb Hct MCV MCH MCHC RDW Plt Count Neut % (Auto) Lymph % (Auto) Wirt % (Auto) Eos % (Auto) Baso % (Auto) Neut # (Auto) Lymph # (Auto) Wirt # (Auto) Eos # (Auto) Baso # (Auto) VBG pH VBG pCO2 VBG pO2 VBG HCO3 VBG Total CO2 VBG O2 Saturation VBG Base Excess Sodium 145 Potassium 3.7 Chloride 118 H Carbon Dioxide 7 L* BUN 20 H Creatinine 0.75 Estimated GFR > 60.0 BUN/Creatinine Ratio 26.7 H Glucose 303 H D Lactate Calcium 8.4 Phosphorus 4.1 D Magnesium 1.9 Total Bilirubin AST ALT Alkaline Phosphatase Total Protein Albumin Globulin Albumin/Globulin Ratio Procalcitonin Urine Color Urine Appearance Urine pH Ur Specific Justin Urine Protein Urine Glucose (UA) Urine Ketones Urine Occult Blood Urine Nitrate Urine Bilirubin Ur Bilirubin Confirm Urine Urobilinogen Ur Leukocyte Esterase Urine RBC Urine WBC Ur Squamous Epith Cells Urine Bacteria Granular Casts Ur Culture Indicated? Ketones A. baumannii (PCR) Not detected Vriginia albicans (PCR) Not detected C. glabrata (PCR) Not detected C. krusei (PCR) Not detected C. parapsilosis (PCR) Not detected C. tropicalis (PCR) Not detected Enterobacteriac sp PCR Not detected E. cloacae complex PCR Not detected Enterococcus sp PCR Not detected E. coli (PCR) Not detected H. influenzae (PCR) Not detected Klebsiella oxytoca PCR Not detected Klebsiella pneumoniae Not detected List. monocytogenes PCR Not detected N. meningitidis (PCR) Not detected Proteus species (PCR) Not detected Serratia marcescens PCR Not detected Staphylococcus sp PCR Detected H Staph aureus (PCR) Detected H mecA-Methicil Res Gene Not detected Streptococcus sp PCR Not detected Group A Strep (PCR) Not detected Strep agalactiae (PCR) Not detected Strep pneumoniae (PCR) Not detected P. aeruginosa (PCR) Not detected Andi/B-Vanco Res Genes Not Reportable KPC-Carbap Res Gene PCR Not Reportable 09/30/19 09/30/19 09/30/19 01:04 04:45 04:45 WBC RBC Hgb Hct MCV MCH MCHC RDW Plt Count Neut % (Auto) Lymph % (Auto) Wirt % (Auto) Eos % (Auto) Baso % (Auto) Neut # (Auto) Lymph # (Auto) Wirt # (Auto) Eos # (Auto) Baso # (Auto) VBG pH VBG pCO2 VBG pO2 VBG HCO3 VBG Total CO2 VBG O2 Saturation VBG Base Excess Sodium 141 141 Potassium 3.6 3.5 Chloride 118 H 119 H Carbon Dioxide 15 L 14 L BUN 19 H 19 H Creatinine 0.68 0.66 Estimated GFR > 60.0 > 60.0 BUN/Creatinine Ratio 27.9 H 28.8 H Glucose 170 H D 172 H Lactate Calcium 8.5 8.6 Phosphorus 2.7 D Magnesium 1.9 1.8 Total Bilirubin AST ALT Alkaline Phosphatase Total Protein Albumin Globulin Albumin/Globulin Ratio Procalcitonin Urine Color Urine Appearance Urine pH Ur Specific Justin Urine Protein Urine Glucose (UA) Urine Ketones Urine Occult Blood Urine Nitrate Urine Bilirubin Ur Bilirubin Confirm Urine Urobilinogen Ur Leukocyte Esterase Urine RBC Urine WBC Ur Squamous Epith Cells Urine Bacteria Granular Casts Ur Culture Indicated? Ketones A. baumannii (PCR) [place] albicans (PCR) C. glabrata (PCR) C. krusei (PCR) C. parapsilosis (PCR) C. tropicalis (PCR) Enterobacteriac sp PCR E. cloacae complex PCR Enterococcus sp PCR E. coli (PCR) H. influenzae (PCR) Klebsiella oxytoca PCR Klebsiella pneumoniae List. monocytogenes PCR N. meningitidis (PCR) Proteus species (PCR) Serratia marcescens PCR Staphylococcus sp PCR Staph aureus (PCR) mecA-Methicil Res Gene Streptococcus sp PCR Group A Strep (PCR) Strep agalactiae (PCR) Strep pneumoniae (PCR) P. aeruginosa (PCR) Andi/B-Vanco Res Genes KPC-Carbap Res Gene PCR 09/30/19 09/30/19 04:59 10:42 WBC RBC Hgb Hct MCV MCH MCHC RDW Plt Count Neut % (Auto) Lymph % (Auto) Wirt % (Auto) Eos % (Auto) Baso % (Auto) Neut # (Auto) Lymph # (Auto) Wirt # (Auto) Eos # (Auto) Baso # (Auto) VBG pH VBG pCO2 VBG pO2 VBG HCO3 VBG Total CO2 VBG O2 Saturation VBG Base Excess Sodium 138 Potassium 3.5 Chloride 115 H Carbon Dioxide 16 L BUN 14 Creatinine 0.55 Estimated GFR > 60.0 BUN/Creatinine Ratio 25.5 H Glucose 128 H Lactate Calcium 8.4 Phosphorus Magnesium Total Bilirubin AST ALT Alkaline Phosphatase Total Protein Albumin Globulin Albumin/Globulin Ratio Procalcitonin Urine Color Yellow Urine Appearance Clear Urine pH 5.5 Ur Specific Justin 1.015 Urine Protein 1+ H Urine Glucose (UA) 2+ H Urine Ketones 2+ H Urine Occult Blood 3+ H Urine Nitrate Negative Urine Bilirubin 1+ H Ur Bilirubin Confirm Negative Urine Urobilinogen 0.2 Ur Leukocyte Esterase Trace H Urine RBC 5-10/hpf H Urine WBC 10-30/hpf H Ur Squamous Epith Cells 0-1 /hpf Urine Bacteria Few (2-10) H Granular Casts 1-5/lpf Ur Culture Indicated? Specimen cultured Ketones A. baumannii (PCR) [place] albicans (PCR) C. glabrata (PCR) C. krusei (PCR) C. parapsilosis (PCR) C. tropicalis (PCR) Enterobacteriac sp PCR E. cloacae complex PCR Enterococcus sp PCR E. coli (PCR) H. influenzae (PCR) Klebsiella oxytoca PCR Klebsiella pneumoniae List. monocytogenes PCR N. meningitidis (PCR) Proteus species (PCR) Serratia marcescens PCR Staphylococcus sp PCR Staph aureus (PCR) mecA-Methicil Res Gene Streptococcus sp PCR Group A Strep (PCR) Strep agalactiae (PCR) Strep pneumoniae (PCR) P. aeruginosa (PCR) Andi/B-Vanco Res Genes KPC-Carbap Res Gene PCR Assessment & Plan Assessment & Plan narrative: Ms. Sarabjit Jimenes is a 28-year-old female patient with a history significant for type 1 diabetes, migraines, irregular menstruati on and prior pyelolithiasis who presents to the ER with complaints of feeling dehydrated and painful lesions on her head. She was admitted with DKA to the intensive care unit, current plan to titrate off of insulin infusion in a few hours now that AG has closed and bicarb is above 15. 1. Type 1 diabetes with diabetic ketoacidosis, acute, present on admission -patient with presenting VBG of pH 7.03, and a bicarb of 4. AG is approximately 32. Serum bicarb was noted to be less than 5. Admission glucose 631 with elevated ketones. -patient still appears dehydrated and will continue IV fluids -continue insulin gtt for 2 additional hours after subcutaneous insulin has been given, potassium repletion given. -continue telemetry monitoring -q.1 hour fingersticks until off of insulin infusion, then a.c. HS -will advance to carb controlled diet -source may be secondary to acute cystitis given positive UA and history of neurogenic bladder. Blood cultures did grow Staph aureus, but this is only in 1 bottle and may be contaminant. Will await final cultures. 2. scalp folliculitis, acute, present on admission -patient was given a dose of ceftriaxone, then converted to Zosyn for acute cystitis which will more than adequately cover scalp folliculitis. 3. Acute cystitis -patient with history of neurogenic bladder, she did not void until this morning when she voided on was 1400 cc. UA showed 10-30 white blood cells, 5-10 red blood cells, trace leuk esterase, but negative nitrates. Patient was switched to Zosyn to cover for acute cystitis. -urine cultures are pending and will follow-up results. 4. 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 -patient voided voluntarily 1400 cc early this morning -continue voluntary voiding every 2-4 hours when awake. -will need urology follow up for diabetic cystopathy, unclear if this has occurred as an outpatient since last admission. 5. Possible Staph bacteremia - present in only 1 bottle, will await final cultures. Patient is not febrile. Possible contaminant. I spent 30 minutes providing critical care management this patient. This excludes time spent in performing separately billed procedures. Dispo: Remains ICU while on insulin infusion. Anticipate discharge in the next 24-48 hours once urine cultures result and blood cultures. Code: Full, surrogate decision maker is patient's fiance DVT: HSQ IVF: NS @ 150. COVID-19 COVID-19 status: Not tested
[2019-09-30] MEDS: Insulin Degludec [Tresiba Flextouch U-100] 40 EACH SUBCUT (12:24)
--- NOTE | 2019-09-30 13:05 | CM.DPC ---
DCP: Case received, EMR reviewed and checked on patient. She was sleeping, but discussed case at team rounds outside of door. Patient has been here before, so he history is familiar. DCP assessment completed with information currently available from chart. Patient is a 29 year old female who admitted yesterday afternoon to the care of the hospitalist team. PCP: Patient sees an children's service supervisor, and also, has a PCP at residency clinic at [facility]. Payer: [employer]. Patient came to the hospital via family vehicle secondary to feeling dehydrated, as well as having a lesion on her forehead. Patient was also noted to have DKA. She is also being checked for UTI, for she has history of pyelonephritis. She also has a neutrogenic bladder, and is on a voiding schedule. Patient resides with her significant other, and her mother lives near by. She is unemployed, and does not drive. Patient has been going to the residency clinic at [facility] for primary care, but name is unknown. She has also been seeing an children's service supervisor. P: DCP to continue to follow. Patient should be able to go home when she is medically stable. Anni Rudd RN/Correctional Therapy Teacher
--- NOTE | 2019-09-30 14:53 | PC.NURSE ---
Day Shift Note Insulin gtt off at 1430 - 2 hours after Tresiba 40 units administered subcut. Last BCG 236. Pt denies nausea. Does report 7/10 pain to head and all over, reports pain resolved with Dilaudid administration. Up to bathroom to void twice this shift. Call light within reach, using appropriately to make needs known.
[2019-09-30] MEDS: INSULIN ASPART 100 UNIT/ML INSULN PEN SUBCUT ×3 (17:19→21:06)
--- NOTE | 2019-09-30 19:52 | PC.NURSE ---
Evening shift note: Pt resting in bed with eyes closed, rouses to voice, VSS and is able to make needs known. Insulin gtt off at 1430, 2 hours after Tresiba [address] Weinberg placed new orders for FSBG checks AC/HS and added sliding scale coverage with meal bolus. First BG for this shift was 209, pt denies any N/V. Pt c/o pain 7/10 generalized body and head, received dilaudid at 1715, states that the pain is 2/10 after administration. Pt c/o telemetry bothering me and wanted to remove it. Updated provider Nakul Spicer NP, we will D/C telemetry as pt is no longer on Insulin gtt and VSS, will also down-grade pt to Acute Care status. Bed low and locked, call light within reach, Fiance at bedside, will continue to monitor.
[2019-10-01] VITALS (8 sets, daily range): BP systolic 106–120; BP diastolic 64–81; PULSE 98–114; RESP 16–17; TEMP 36.8–37.5; O2SAT 96–100; BMI 20.8
[2019-10-01] MEDS: HYDROMORPHONE 1 MG INJ IV ×3 (01:06→08:06)
[2019-10-01] MEDS: SODIUM CHLORIDE 0.9% FLUSH 10 ML IV ×3 (01:07→22:11)
[2019-10-01] MEDS: PIPERACILLIN-TAZO 3.375 GM/50 ML FROZ.PIGGY IV (05:13)
[2019-10-01 05:20] LABS: Add Manual Diff / Slide Review NO; Basophils Absolute Auto 100 /uL (0-100); Basophils Percent Auto 0.8 % (0-2); Eosinophils Absolute Auto 100 /uL (0-450); Eosinophils Percent Auto 1.2 % (2-4); Hematocrit 33.6 % (36-46); Hemoglobin 12.1 g/dL (12.0-16.0); Lymphocytes Absolute Auto 1800 /uL (1100-4500); Lymphocytes Percent Auto 18.5 % (25-40); Mean Corpuscular Hemoglobin 34.2 PG (26-34); Mean Corpuscular Volume 95.1 fL (80-100); Monocytes Absolute Auto 1400 /uL (0-900); Monocytes Percent Auto 14.4 % (3-14); Neutrophils Absolute Auto 6500 /uL (1500-7000); Neutrophils Percent Auto 65.1 % (50-75); Platelet Count 323 X10^3/uL (150-400); Red Blood Cell Count 3.53 X10^6/uL (4.0-5.2); Red Cell Distribution Width 13.2 % (11.6-14.8); White Blood Cell Count 9.9 X10^3/uL (4.5-11.0)
[2019-10-01 05:33] LABS: BUN Creatinine Ratio 22.7 (6-22); Blood Urea Nitrogen 15 mg/dL (7-17); Carbon Dioxide 21 mmol/L (22-32); Chloride 111 mmol/L (98-107); Estimated Glomerular Filt Rate > 60.0 mL/min (>60); Glucose 133 mg/dL (70-100); HEMOLYSIS < 15 (0-50); Potassium 3.2 mmol/L (3.4-5.1); Sodium 137 mmol/L (137-145)
--- NOTE | 2019-10-01 06:24 | PC.NURSE ---
Wind Plant Manager Note-Patient remains off insulin gtt and IV fluid except Zosyn Q8h, tolerating ADA diet. CBG 185 at 0230. Becomes tearful and requests pain medication Q3h, 1mg IV Dilaudid given per prn, also uses ice packs for abscess on top of scalp. Afebrile, HRR 105-115. Independent into BR, has voided 900ml slightly cloudy urine once.
[2019-10-01] MEDS: POTASSIUM CHLORIDE 40 MEQ in SODIUM CHLORIDE 0.9% 500 ML 130 ML IV (08:02)
[2019-10-01] MEDS: HEPARIN 5,000 UNIT/ML VIAL 5000 UNIT SUBCUT ×2 (08:06→20:51)
[2019-10-01] MEDS: INSULIN ASPART 100 UNIT/ML INSULN PEN SUBCUT ×5 (08:27→16:35)
[2019-10-01] MEDS: HYDROMORPHONE 0.5 MG INJ IV ×3 (08:28→19:32)
[2019-10-01] MEDS: ACETAMINOPHEN 325 MG TABLET 975 MG PO ×2 (08:30→16:40)
[2019-10-01] MEDS: OXYCODONE IR 5 MG TABLET PO ×4 (08:30→22:58)
[2019-10-01] MEDS: CEFDINIR 300 MG CAPSULE PO ×2 (10:43→20:51)
--- NOTE | 2019-10-01 10:52 | DIET.PN ---
Dietary Progress Note Assessment: 29y F admitted to ICU for DKA c scalp abcess. Pt's last ICU admit was 02/2019, this is 7th ICU stay for DKA in past 1y. Pt currently takes Tresiba 40U daily and meal time insulin, reports to ED BGs averaging 250. Pt has been contacted by [facility] for outpatient program with no response, she will go up to visit c pt in room today. HT: 154.9cm WT: 50kg (pt has gained 4.5kg since 02/2019) UBW: 46-53kg this year per [facility] records BMI: 20.8 Labs: serum glucose on admit 631 HH, elevated ketones Diet Order: CCD EER: 1800kcal (wt gain), 50g PRO (1g/kg per low BMI), 1700 L fluids Monitoring/Evaluations: I&Os, associated labs, continued education when pt receptive
[2019-10-01] MEDS: Insulin Degludec [Tresiba Flextouch U-100] 40 EACH SUBCUT (11:12)
--- NOTE | 2019-10-01 12:14 | P.PN_ITS ---
Subjective Subjective Date Patient Seen: 10/01/19 Time Patient Seen: 08:00 Interval history: Ms. Sarabjit Jimenes is a 28-year-old female patient with a history significant for type 1 diabetes, migraines, irregular menstruation and prior pyelolithiasis who is admitted for DKA and acute cystitis. Urine culture likely negative as was taken after antibiotics. Her blood sugars have remained controlled today. She remains mildly tachycardic and still does not appear well. Her acidosis is not completely resolved and she was mildly hypokalemic this morning. She still complains mild nonspecific abdominal pain although it is improving. She denies any nausea, vomiting. She does feel hungry and is eating well. She reports being compliant with timed voiding. She was not able to see a urologist after her previous discharge. Exam Vital Signs (past 8 hours): - 10/01/19 07:25 10/01/19 11:00 Temperature 99.4 F 99.1 F Pulse Rate 112 H 109 H Respiratory Rate 16 16 Blood Pressure 120/73 118/64 Pulse Oximetry 100 96 Oxygen Delivery Method Room Air Oxygen Flow Rate 0 Narrative Exam Narrative: GENERAL APPEARANCE: Acutely ill-appearing young female, but in note acute distress. She is very pale in appearance. SKIN: Inspection of the skin reveals scabbed over lesions x2 over her scalp with mild surrounding erythema and tenderness. HEENT: Normocephalic atraumatic, scalp lesions as noted above. Extraocular muscles are intact, oropharynx is clear and mucous membranes are very dry, neck is supple without adenopathy NECK: Supple and symmetric. There was no thyroid enlargement, and no tenderness, or masses were felt. CHEST: Normal AP diameter and normal contour without any kyphoscoliosis. LUNGS: Auscultation of the lungs revealed no wheezes, rhonchi, or rales. CARDIOVASCULAR: There was a tachycardic rate and regular rhythm without any murmurs, gallops, rubs. Peripheral pulses were 2+ and symmetric. ABDOMEN: Soft and nontender with normal bowel sounds. No ascites was noted. MUSCULOSKELETAL: There was no tenderness or effusions noted. Muscle strength and tone were normal. EXTREMITIES: No cyanosis, clubbing or edema. NEUROLOGIC: Alert and oriented x 3. Normal affect. Gait was normal. Strength is +5/5 in the Upper Extremities and Lower Extremities Bilaterally. Sensation to touch was normal. Objective Labs Result Diagrams: 10/01/19 05:00 10/01/19 05:00 Labs: Laboratory Results - last 24 hr 10/01/19 10/01/19 05:00 05:00 WBC 9.9 RBC 3.53 L Hgb 12.1 Hct 33.6 L MCV 95.1 D MCH 34.2 H MCHC 36.0 D RDW 13.2 Plt Count 323 Neut % (Auto) 65.1 Lymph % (Auto) 18.5 L [place] % (Auto) 14.4 H Eos % (Auto) 1.2 L Baso % (Auto) 0.8 Neut # (Auto) 6500 Lymph # (Auto) 1800 [place] # (Auto) 1400 H Eos # (Auto) 100 Baso # (Auto) 100 Sodium 137 Potassium 3.2 L Chloride 111 H Carbon Dioxide 21 L BUN 15 Creatinine 0.66 Estimated GFR > 60.0 BUN/Creatinine Ratio 22.7 H Glucose 133 H Calcium 9.0 Magnesium 2.0 Assessment & Plan Assessment & Plan narrative: Ms. Sarabjit Jimenes is a 28-year-old female patient with a history significant for type 1 diabetes, migraines, irregular menstruation and prior pyelolithiasis who presents to the ER with complaints of feeling dehydrated and painful lesions on her head. She was admitted with DKA to the intensive care unit, current plan to titrate off of insulin infusion in a few hours now that AG has closed and bicarb is above 15. 1. Type 1 diabetes with diabetic ketoacidosis, acute, present on admission, DKA resolved -patient with presenting VBG of pH 7.03, and a bicarb of 4. AG is approximately 32. Serum bicarb was noted to be less than 5. Admission glucose 631 with elevated ketones. -patient was treated with an insulin infusion until her anion gap closes and bicarb was above 15. She is now on subcutaneous insulin and her laboratory resu lts are improving. -continue telemetry monitoring -ACHS fingersticks. -on carb controlled diet -source may be secondary to acute cystitis given positive UA and history of neurogenic bladder. Blood cultures did grow Staph aureus, but this is only in 1 bottle and may be contaminant. Will await final cultures. Urine culture negative but patient received ceftriaxone prior to culture. Prior urine with Albarran-sensitive e. coli -treat cystitis as noted below. 2. scalp folliculitis, acute, present on admission -patient was given a dose of ceftriaxone, then converted to Zosyn for acute cystitis which is now narrowed to oral cefdinir for treatment of folliculitis and cystitis. -wound culture growing MSSA. 3. Acute cystitis -patient with history of neurogenic bladder, she did not void until this morning when she voided on was 1400 cc. UA showed 10-30 white blood cells, 5-10 red blood cells, trace leuk esterase, but negative nitrates. Patient was switched to Zosyn to cover for acute cystitis yesterday, narrowed to cefdinir based on prior cultures. -urine cultures are negative but received ceftriaxone prior to culture -continue oral cefdinir 300 mg BID 4. 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 -patient voided voluntarily 1400 cc early this morning -continue voluntary voiding every 2-4 hours when awake. -will need urology follow up for diabetic cystopathy, unclear if this has occurred as an outpatient since last admission. 5. Possible Staph bacteremia - present in only 1 bottle, will await final cultures. Patient is not febrile. Possible contaminant. I spent 30 minutes providing critical care management this patient. This excludes time spent in performing separately billed procedures. Dispo: STable for regular floor. Anticipate discharge tomorrow. Code: Full, surrogate decision maker is patient's fiance DVT: HSQ
--- NOTE | 2019-10-01 12:36 | CM.DPC ---
DCP Cont: Met with patient during team rounds. Continuing with IV fluids, patient alert and oriented. Blood sugars have been more stable. Confirmed with patient that she is still going to residency clinic at [facility], but she sees different providers. She also sees endrinologist at [facility] as well, but had not been in lately to see. P: Patient should be going home tomorrow on oral antibiotics. Anni Rudd RN/Purchasing And Claims Supervisor
[2019-10-02] MEDS: HYDROMORPHONE 0.5 MG INJ IV ×3 (00:07→06:03)
[2019-10-02] MEDS: SODIUM CHLORIDE 0.9% FLUSH 10 ML IV ×5 (03:13→06:03)
[2019-10-02 03:14] VITALS: BP 123/78; PULSE 108; RESP 18; TEMP 36.7; O2SAT 99
[2019-10-02] MEDS: OXYCODONE IR 5 MG TABLET PO ×2 (04:17→11:25)
[2019-10-02 05:01] LABS: Add Manual Diff / Slide Review NO; Basophils Absolute Auto 100 /uL (0-100); Basophils Percent Auto 0.7 % (0-2); Eosinophils Absolute Auto 100 /uL (0-450); Eosinophils Percent Auto 0.9 % (2-4); Hematocrit 31.1 % (36-46); Lymphocytes Absolute Auto 1600 /uL (1100-4500); Lymphocytes Percent Auto 18.4 % (25-40); Mean Corpuscular HGB Conc 35.3 % (30-36); Mean Corpuscular Hemoglobin 33.7 PG (26-34); Mean Corpuscular Volume 95.5 fL (80-100); Monocytes Absolute Auto 1200 /uL (0-900); Monocytes Percent Auto 13.8 % (3-14); Neutrophils Absolute Auto 5600 /uL (1500-7000); Neutrophils Percent Auto 66.2 % (50-75); Platelet Count 277 X10^3/uL (150-400); Red Blood Cell Count 3.26 X10^6/uL (4.0-5.2); Red Cell Distribution Width 13.2 % (11.6-14.8); White Blood Cell Count 8.5 X10^3/uL (4.5-11.0)
[2019-10-02 05:16] LABS: BUN Creatinine Ratio 30.8 (6-22); Blood Urea Nitrogen 16 mg/dL (7-17); Calcium 8.6 mg/dL (8.4-10.2); Carbon Dioxide 23 mmol/L (22-32); Chloride 112 mmol/L (98-107); Estimated Glomerular Filt Rate > 60.0 mL/min (>60); Glucose 120 mg/dL (70-100); HEMOLYSIS < 15 (0-50); Potassium 3.3 mmol/L (3.4-5.1); Sodium 139 mmol/L (137-145)
--- NOTE | 2019-10-02 07:46 | P.DS_ITS ---
History of Present Illness History of Present Illness Date Patient Seen: 10/02/19 Time Patient Seen: 07:46 Chief complaint: growth on head/painful,diabetes Narrative: Ms. Sarabjit Jimenes is a 28-year-old female patient with a history significant for type 1 diabetes, migraines, irregular menstruation and prior pyelolithiasis who presents to the ER with complaints of feeling dehydrated and painful lesions on her head. Patient states that about 2 days ago she was c ombing her hair and noticed that it was painful. She had her fiance look at her head and noticed 2 small lesions, she was not able to see these herself but they continue to be tender. Today, she became increasingly aware that she was quite dehydrated. She denies any recent chest pain, shortness of breath, cough, fever, chills, abdominal pain (however she does intermittently describe diffuse abdominal burning pain), flank pain, dysuria, urinary frequency, or vaginal discharge. She denies any known exposure to COVID-19, and has been socially isolating due to her diabetes. She has a very brittle type 1 diabetic frequent admissions for DKA, however the last admission was approximately 7 months ago. She does not recall her most recent A1c. On arrival in the emergency room, patient appeared dehydrated, tachycardic. She was given 1 L fluid bolus. Initial labs were drawn which showed a leukocytosis of 14.4, platelet of 476, VBG with pH of 7.03 and a bicarb of 4. Chemistries revealed a sodium of 140, potassium of 4.5, CO2 of less than 5, creatinine at 0.91 which is very near her baseline, and a glucose of 631. Phosphorus was 6.4, magnesium 2.4. There is no bilirubin or LFT abnormalities except for a mildly elevated alkaline phosphatase at 214. Procalcitonin was 0.28. Ketones were 16.1. Patient was started on an insulin drip in ordered for 2 more L of fluid bolus. She was taken up to the ICU and admitted to the medicine service for treatment of DKA. Chest imaging was unremarkable. EKG showed a sinus tachycardia without evidence of active ischemia. Discharge Providers Provider Date of admission: 09/29/19 16:42 Discharge Date: 10/02/19 Consults: 09/29/19 18:09 Consult to Dietitian, Adult Routine Comment: Reason For Exam: malnutrion Discharge provider: Julio Cesar Weinberg DO Summary Hospital Course Discharge Diagnosis: Please see hospital course by problem list noted below. Hospital Course: Ms. Sarabjit Jimenes is a 28-year-old female patient with a history significant for type 1 diabetes, migraines, irregular menstruation and prior pyelolithiasis who presented to the ER with complaints of feeling dehydrated and painful lesions on her head. She was admitted with DKA to the intensive care unit. She was treated with insulin infusion and discharged home when acidosis fully resolved and patient felt well. 1. Type 1 diabetes with diabetic ketoacidosis, acute, present on admission, DKA resolved -patient with presenting VBG of pH 7.03, and a bicarb of 4. AG is approximately 32. Serum bicarb was noted to be less than 5. Admission glucose 631 with elevated ketones. -patient was treated with an insulin infusion until her anion gap closed and bicarb was above 15. She was transitioned to her home subcutaneous insulin and her glucose was well controlled with no recurrence of anion gap or acidosis. -telemetry monitoring with sinus tachycardia improved over the course of h ospital admission after fluid repletion. -source may be secondary to acute cystitis given positive UA and history of neurogenic bladder. Blood cultures did grow Staph aureus, but this is only in 1 set and may be contaminant given lack of systemic symptoms. Final cultures pending but likely MSSA. Urine culture negative but patient received ceftriaxone prior to culture. Prior urine with Albarran-sensitive e. coli -treated cystitis as noted below. 2. scalp folliculitis, acute, present on admission -patient was given a dose of ceftriaxone, then converted to Zosyn for acute cystitis which is now narrowed to oral cefdinir for treatment of folliculitis and cystitis. -wound culture growing MSSA. Lesions are scabbed over. -recommend PMD follow up with possible dermatology referral for excision if not improving. -will discharge with short pain medication course. 3. Acute cystitis, present on admission. -patient with history of neurogenic bladder, she did not void until morning after admission when she voided on was 1400 cc. UA showed 10-30 white blood cells, 5-10 red blood cells, trace leuk esterase, but negative nitrates. Patient was switched to Zosyn to cover for acute cystitis on HD#1 narrowed to cefdinir based on prior cultures and other possible infectious sources noted elsewhere. -urine cultures are negative but received ceftriaxone prior to culture -continue oral cefdinir 300 mg BID -patient unlikely to be symtomatic due to diabetic cystopathy. 4. 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 -patient voided voluntarily 1400 cc morning after admission. -continue voluntary voiding every 2-4 hours when awake. -will need urology follow up for diabetic cystopathy, unclear if this has occurred as an outpatient since last admission. 5. Possible Staph bacteremia - present in only 1 set, awaiting final cultures but likely MSSA, similar to wo und cultures which are likely skin contaminant. Patient is not febrile. Highly suspect contaminant but as above will discharge on 7 days of cefdinir. Patient was given return precautions. Dispo: Discharged home. Status at Discharge Overall status at discharge: patient is back to baseline Time Spent with Patient Time spent: Greater than 30 minutes Exam Vital Signs (past 8 hours): - 10/01/19 23:58 10/02/19 03:14 Temperature 98.2 F 98.0 F Pulse Rate 108 H 108 H Respiratory Rate 16 18 Blood Pressure 115/81 123/78 Pulse Oximetry 97 99 Oxygen Delivery Method Room Air Oxygen Flow Rate 0 Narrative Exam Narrative: GENERAL APPEARANCE: Acutely ill-appearing young female, but in note acute distress. She is very pale in appearance. SKIN: Inspection of the skin reveals scabbed over lesions x2 over her scalp with mild surrounding erythema and tenderness. HEENT: Normocephalic atraumatic, scalp lesions as noted above. Extraocular muscles are intact, oropharynx is clear and mucous membranes are very dry, neck is supple without adenopathy NECK: Supple and symmetric. There was no thyroid enlargement, and no tenderness, or masses were felt. CHEST: Normal AP diameter and normal contour without any kyphoscoliosis. LUNGS: Auscultation of the lungs revealed no wheezes, rhonchi, or rales. CARDIOVASCULAR: There was a tachycardic rate and regular rhythm without any murmurs, gallops, rubs. Peripheral pulses were 2+ and symmetric. ABDOMEN: Soft and nontender with normal bowel sounds. No ascites was noted. MUSCULOSKELETAL: There was no tenderness or effusions noted. Muscle strength and tone were normal. EXTREMITIES: No cyanosis, clubbing or edema. NEUROLOGIC: Alert and oriented x 3. Normal affect. Gait was normal. Strength is +5/5 in the Upper Extremities and Lower Extremities Bilaterally. Sensation to to uch was normal. Objective Labs Result Diagrams: 10/02/19 04:48 10/02/19 04:48 Labs: Laboratory Results - last 24 hr 10/02/19 10/02/19 04:48 04:48 WBC 8.5 RBC 3.26 L Hgb 11.0 L Hct 31.1 L MCV 95.5 MCH 33.7 MCHC 35.3 RDW 13.2 Plt Count 277 Neut % (Auto) 66.2 Lymph % (Auto) 18.4 L [place] % (Auto) 13.8 Eos % (Auto) 0.9 L Baso % (Auto) 0.7 Neut # (Auto) 5600 Lymph # (Auto) 1600 [place] # (Auto) 1200 H Eos # (Auto) 100 Baso # (Auto) 100 Sodium 139 Potassium 3.3 L Chloride 112 H Carbon Dioxide 23 BUN 16 Creatinine 0.52 Estimated GFR > 60.0 BUN/Creatinine Ratio 30.8 H Glucose 120 H Calcium 8.6 Magnesium 2.0 Discharge Plan Discharge Plan Patient Disposition: Home Discharge comment: You were admitted to the hospital with DKA. You likely had a urinary tract infection leading to this episode. Please follow up with your PMD for repeat examination of your scalp lesions. These should heal and you are be ing discharged on a week of antibiotics to take at home. If you have fevers or shaking chills, please do not hesitate to come back. Discharge orders & Medications Prescriptions: New cefdinir 300 mg capsule 300 mg PO BID 7 Days Qty: 14 RF: 0 oxycodone 5 mg tablet 5 mg PO Q6H PRN (Reason: pain) 7 Days Qty: 20 RF: 0 Continued glucose 4 gram tablet,chewable 4 gram PO Q15M PRN (Reason: hypoglycemia) Qty: 30 RF: 0 Glucagon Emergency Kit (human) 1 mg recon soln 1 mg subcut DIRECTED RF: 0 Tresiba FlexTouch U-100 100 unit/mL (3 mL) insulin pen 40 unit SUBCUT DAILY RF: 0 insulin lispro [Humalog KwikPen Insulin] 100 unit/mL insulin pen See Rx Instructions .ROUTE .COMPLEX Qty: 0 RF: 0 Discharge Health Status Health Concerns: DKA Scalp Folliculitis Acute cystitis Diet/Activity/Treatments Diet: Diet as Tolerated and Carb-consistent/Diabetic Activity: As tolerated
[2019-10-02 08:00] VITALS: BP 130/86; PULSE 113; RESP 18; TEMP 37.4; O2SAT 98
[2019-10-02] MEDS: HEPARIN 5,000 UNIT/ML VIAL 5000 UNIT SUBCUT (08:33)
[2019-10-02] MEDS: ACETAMINOPHEN 325 MG TABLET 975 MG PO (08:33)
[2019-10-02] MEDS: POTASSIUM CHLORIDE 20 MEQ TAB 40 MEQ PO (08:34)
[2019-10-02] MEDS: CEFDINIR 300 MG CAPSULE PO (08:35)
[2019-10-02] MEDS: INSULIN ASPART 100 UNIT/ML INSULN PEN SUBCUT (08:35)
[2019-10-02] MEDS: Insulin Degludec [Tresiba Flextouch U-100] 40 EACH SUBCUT (08:37)
--- NOTE | 2019-10-02 09:20 | PC.NURSE ---
Addendum entered by Taylor Ceja R.N. 10/02/19 11:17: reviewed discharge plan with patient and answered all questions to her satisfaction Original Note: PT PLANNING FOR DISCHARGE LATER THIS DATE-REMOVED SALINE LOCK TO LEFT HAND PER HER REQUEST- DID MEDICATE WITH TYLENOL AND SHE REFUSED HEPARIN INJECTION AND AM BLOOD SUGAR 112- SHE DOES ENDORSE PAIN TO HER HEAD LESION WHICH SHE RATES 4/10- GOOD APPETITE
--- NOTE | 2019-10-02 12:39 | CM.DPC ---
DCP: continued: case received and discussed in Team Rounds. DC order to home setting noted. P: was for pt to return home today on several days of oral antibiotics. Her mother was picking her up around noon. A check in now shows that pt did leave as anticipated.
== END 2019-10-02 11:50 | disposition home or self-care (01) | DRG 638 ==
LOC: ED 16:26 → ICU 17:31
PROVIDERS: Emergency Medicine; Nurse Practitioner Adult Health; Admitting Provider Internal Medicine; Emergency Provider Nurse Practitioner Family; Referring Provider Nurse Practitioner Family; Visit Provider Internal Medicine
DX: E10.10 Type 1 diabetes mellitus with ketoacidosis without coma (principal); N30.00 Acute cystitis without hematuria; E10.40 Type 1 diabetes mellitus with diabetic neuropathy, unspecified; N31.9 Neuromuscular dysfunction of bladder, unspecified; E86.0 Dehydration; L73.9 Follicular disorder, unspecified; E87.6 Hypokalemia; Z79.4 Long term (current) use of insulin
CPT/HCPCS: 36415; 36592; 71046; 76770; 80048; 80053; 81001; 82009; 82805; 82962; 83605; 83735; 84100; 84145; 85025; 87040; 87070; 87075; 87077; 87086; 87147; 87150; 87186; 87205; 93005; 96361; 96365; 96375; 99284; C9113; J1170; J1644; J2405; J2543; J3480; J7050

== ENCOUNTER 2019-10-14 13:53 | Inpatient (IN) | payer MEDICAID, SELFPAY ==
[2019-10-01 14:12] VITALS: BMI 20.8
[2019-10-14] VITALS (17 sets, daily range): BP systolic 93–141; BP diastolic 55–95; PULSE 106–139; RESP 14–24; TEMP 37.4; O2SAT 99–100; BMI 18.4
--- NOTE | 2019-10-14 14:22 | ED.GENADULT ---
HPI - General Adult General Chief complaint: Diabetic Problem Stated complaint: nausea/dm/2 wks ago staph inf./dehyd. Time Seen by Provider: 10/14/19 14:22 Source: patient and family Mode of arrival: Ambulatory History of Present Illness HPI narrative: 29-year-old type 1 diabetic with recurrent episodes of DKA, acute kidney injury presents with 24 hours of aching all over, increasing abdominal pain increasing Kussmaul breathing and concerns that she is again in DKA. She was admitted on September 28 with notes of painful lesion that had developed over the top of her scalp. This was eventually felt to be scalp folliculitis with wound culture growing methicillin sensitive staph aureus. With that same hospitalization she had 1 set of blood cultures positive for Staph presumed contaminant. She was also presumed to have acute cystitis with a history of neurogenic bladder. She was initially started on Zosyn and then changed to cefdinir for 7 days on discharge. She been doing well until yesterday. The lesion on her scalp now 2 x 4 cm is fluctuant but not erythematous with no surrounding cellulitis. She has lost all of the hair over that area. She does note that she has developed severe diarrhea within a few days of completing the cefdinir course. Describes watery smelly stool multiple times daily for the last couple of days. Notes no vomiting and no blood in the stool. Related Data Home Medications Medication Instructions Recorded Confirmed Glucagon Emergency Kit (human) 1 mg SUBCUT DIRECTED 02/16/19 09/30/19 Tresiba FlexTouch U-100 40 unit SUBCUT DAILY 09/30/19 09/30/19 Previous Rx's Medication Instructions Recorded glucose 4 gram PO Q15M PRN #30 tab 12/12/18 insulin lispro [Humalog KwikPen See Rx Instructions .ROUTE 03/10/19 Insulin] .COMPLEX #0 ml Allergies Allergy/AdvReac Type Severity Reaction Status Date / Time arredondo [ARREDONDO] Allergy Intermediate Hives, Verified 10/14/19 14:49 pruritus iodine [IODINE] Allergy Intermediate rash, itchy Verified 10/14/19 14:49 morphine Allergy Intermediate Difficulty Verified 10/14/19 14:49 Breathing shellfish derived Allergy Intermediate rash Verified 10/14/19 14:49 [SHELLFISH DERIVED] adhesive [ADHESIVE] Allergy Unknown tape Verified 10/14/19 14:49 latex [LATEX] Allergy Unknown Hives Verified 10/14/19 14:49 Review of Systems Review of Systems Narrative: Pertinent positive and negative findings as per HPI Remainder of review of systems is otherwise unremarkable for ENT: No sore throat, neck pain, ear pain CV: Chest pain, palpitations, dyspnea on exertion : hematuria, flank pain MS: Muscle weakness, numbness, joint swelling or warmth Skin: Rashes, Neuro: , dizziness, tingling Allergy: Seasonal rhinorrhea, itchy eyes Patient History Medical History DKA (diabetic ketoacidoses) (Resolved) History of pyelonephritis (Resolved) Irregular menstrual cycle (Acute) Migraine headache (Chronic) Nephrolithiasis (Resolved) Type 1 diabetes mellitus (Chronic) Surgical History History of ureter stent (Resolved) Status post laser lithotripsy of ureteral calculus (Acute) [place] teeth extracted (Acute) Family History Father In good health Mother Cardiac disease Social History details: Engaged household members: significant other and family Smoking Status: Never smoker alcohol intake: never Smoking Status: Never smoker alcohol intake frequency: holidays/special occasions only Substance Use Type: does not use Exam Narrative Exam Narrative: General: Frail-appearing 29-year-old woman in obvious discomfort, very dry mucous membranes with Kussmaul breathing. HEENT: Dry mucous membranes, normal sclera with reactive pupils, 2 x 4 cm area of fluctuance without surrounding erythema on the top of her scalp with alopecia over surrounding area. Neck: No JVD, supple Respiratory: Lungs are clear to auscultation, no wheezing no rales no rhonchi. Full and symmetrical air movement Cardiac: Tachycardic with regular rate and rhythm no murmurs no bruits Abdomen: Soft , diffusely tender with hypoactive bowel tones, no flank pain Skin: Warm and dry, no rashes Neurologic: Grossly neurologically intact with no obvious asymmetries or abnormalities Extremities: No trauma, poor skin turgor Psych: Moaning, minimal insight into overall events Initial Vital Signs Initial Vital Signs: Vital Signs Temperature 99.4 F 10/14/19 14:10 Pulse Rate 123 H 10/14/19 14:10 Respiratory Rate 19 10/14/19 14:10 Blood Pressure 131/82 10/14/19 14:10 Pulse Oximetry 100 10/14/19 14:10 Procedures Abscess I/D I&D #1: Site: scalp Local Anesthetic: lidocaine 1% Amount of anesthesia used (mL): 3 Technique: incised with #11 blade Amount of fluid expressed (mL): 2 Irrigation: No Packing used?: none Course Orders Ordered: ED Orders 10/14/19 14:30 Complete Blood Count AUTO DIFF Stat Comprehensive Metabolic Panel Stat Ketones (Beta-Hydroxybutyrate) Stat Lactate (Lactic Acid) Stat Procalcitonin Stat Wound Culture and Gram Stain Stat 10/14/19 14:31 GI Panel (Film Array) Stat Venous Blood Gas Stat 10/14/19 15:42 Blood Culture Stat 10/14/19 16:25 Test Urine Stat Urinalysis and Microscopic Stat Urine Culture Stat INSULIN DRIP PREMIX (Myxredlin Drip Premix) 100 unit in 100 mls @ 6 mls/hr IV TITRATE BLAISE; Protocol Last Admin: 10/14/19 16:09 Dose: 6 mls/hr, 6 mls/hr Documented by: SCOTTY Cosigned by: SHERWIN Potassium Chloride 40 meq/ (Sodium Chloride) 520 mls @ 130 mls/hr IV NOW ONE Stop: 10/14/19 19:43 Last Admin: 10/14/19 16:11 Dose: 130 mls/hr Documented by: SCOTTY Cosigned by: SHERWIN Sodium Chloride (Normal Saline 0.9%) 1,000 mls @ 50 mls/hr IV BOLUS ONE Stop: 10/15/19 12:39 Last Admin: 10/14/19 17:12 Dose: 50 mls/hr Documented by: SCOTTY Discontinued Medications Hydromorphone HCl (Dilaudid) 1 mg IV NOW ONE Stop: 10/14/19 14:32 Last Admin: 10/14/19 14:37 Dose: 1 mg Documented by: SHERWIN Sodium Chloride (Normal Saline 0.9%) 1,000 mls @ 1,000 mls/hr IV BOLUS ONE Stop: 10/14/19 15:17 Last Infusion: 10/14/19 15:44 Dose: 0 mls/hr Documented by: Admin: 10/14/19 14:37 Dose: 1,000 mls/hr Documented by: SHERWIN Sodium Chloride (Normal Saline 0.9%) 1,000 mls @ 1,000 mls/hr IV BOLUS ONE Stop: 10/14/19 15:30 Last Infusion: 10/14/19 16:42 Dose: 0 mls/hr Documented by: Admin: 10/14/19 15:43 Dose: 1,000 mls/hr Documented by: SCOTTY Ondansetron HCl (Zofran) 4 mg IV NOW ONE Stop: 10/14/19 14:19 Last Admin: 10/14/19 14:37 Dose: 4 mg Documented by: SHERWIN Ondansetron HCl (Zofran) 4 mg IV NOW ONE Stop: 10/14/19 14:32 Last Admin: 10/14/19 15:21 Dose: 4 mg Documented by: SHERWIN Vital Signs Vital signs: Vital Signs - 8 hr 10/14/19 14:10 10/14/19 15:15 10/14/19 15:30 Temperature 99.4 F Pulse Rate 123 H 113 H 118 H Respiratory Rate 19 14 14 Blood Pressure [Right Arm] 131/82 119/72 117/63 Pulse Oximetry 100 100 99 10/14/19 16:26 10/14/19 16:30 10/14/19 17:08 Temperature Pulse Rate 126 H 122 H 127 H Respiratory Rate 14 15 14 Blood Pressure [Right Arm] 128/80 116/71 115/72 Pulse Oximetry 100 100 100 Medical Decision Making Medical Records Medical records reviewed: Yes I reviewed the patient's medical records. Lab Data Lab results reviewed: Yes I reviewed the patient's lab results. Lab results narrative: Anion gap is 35 Venous blood gas Has a pH of 7.13 Result diagrams: 10/14/19 14:30 10/14/19 14:30 Labs: Lab Results 10/14/19 10/14/19 10/14/19 Range/Units 14:30 14:30 14:30 WBC 11.2 H (4.5-11.0) X10^3/uL RBC 4.28 (4.0-5.2) X10^6/uL Hgb 14.5 (12.0-16.0) g/dL Hct 43.8 (36-46) % MCV 102.3 H (80-100) fL MCH 33.8 (26-34) PG MCHC 33.0 (30-36) % RDW 13.7 (11.6-14.8) % Plt Count 635 H (150-400) X10^3/uL Neut % (Auto) 72.8 (50-75) % Lymph % (Auto) 21.9 L (25-40) % Cass % (Auto) 3.7 (3-14) % Eos % (Auto) 0.2 L (2-4) % Baso % (Auto) 1.4 (0-2) % Neut # (Auto) 8200 H (5049-8111) /uL Lymph # (Auto) 2400 (4553-0000) /uL Cass # (Auto) 400 (0-900) /uL Eos # (Auto) 0 (0-450) /uL Baso # (Auto) 200 H (0-100) /uL VBG pH (7.33-7.43) VBG pCO2 (45-50) mmHg VBG pO2 (35-45) mmHg VBG HCO3 (23-28) mmol/L VBG Total CO2 (24-29) mmol/L VBG O2 Saturation (70-75) % VBG Base Excess (0-4) mmol/L Sodium 132 L (137-145) mmol/L Potassium 4.9 (3.4-5.1) mmol/L Chloride 92 L (98-107) mmol/L Carbon Dioxide < 5 L* (22-32) mmol/L BUN 25 H (7-17) mg/dL Creatinine 0.96 (0.52-1.04) mg/dL Estimated GFR > 60.0 (>60) mL/min BUN/Creatinine Ratio 26.0 H (6-22) Glucose 762 H* (70-100) mg/dL Lactate (0.7-2.1) mmol/L Calcium 10.3 H (8.4-10.2) mg/dL Total Bilirubin 0.5 (0.2-1.3) mg/dL AST 18 (14-36) IU/L ALT 22 (<35) IU/L Alkaline Phosphatase 248 H (38-126) U/L Total Protein 8.4 H (6.3-8.2) g/dL Albumin 5.0 (3.5-5.0) g/dL Globulin 3.4 (1.7-4.1) g/dL Albumin/Globulin Ratio 1.5 (1.0-2.8) Procalcitonin < 0.05 (<0.5) ng/mL Urine Color Urine Appearance Urine pH (4.5-8.0) Ur Specific [place] (1.000-1.035) Urine Protein (Negative) Urine Glucose (UA) (Negative) g/dL Urine Ketones (NEGATIVE) Urine Occult Blood (Negative) Urine Nitrate (Negative) Urine Bilirubin (NEGATIVE) Urine Urobilinogen (0.2) E.U./dL Ur Leukocyte Esterase (NEGATIVE) Urine RBC (0-5/HPF) Urine WBC (0-5/HPF) Ur Squamous Epith Cells (0-5/HPF) Amorphous Sediment Urine Bacteria (None) Urine Mucus (Negative) Ur Culture Indicated? Urine Test (Negative) Ketones 16.47 H (<0.27) mmol/L COVID-19 PCR (Negative) 10/14/19 10/14/19 10/14/19 Range/Units 14:30 14:31 15:52 WBC (4.5-11.0) X10^3/uL RBC (4.0-5.2) X10^6/uL Hgb (12.0-16.0) g/dL Hct (36-46) % MCV (80-100) fL MCH (26-34) PG MCHC (30-36) % RDW (11.6-14.8) % Plt Count (150-400) X10^3/uL Neut % (Auto) (50-75) % Lymph % (Auto) (25-40) % Cass % (Auto) (3-14) % Eos % (Auto) (2-4) % Baso % (Auto) (0-2) % Neut # (Auto) (9248-9258) /uL Lymph # (Auto) (4786-1736) /uL Cass # (Auto) (0-900) /uL Eos # (Auto) (0-450) /uL Baso # (Auto) (0-100) /uL VBG pH 7.13 L* (7.33-7.43) VBG pCO2 17.7 L (45-50) mmHg VBG pO2 44 (35-45) mmHg VBG HCO3 6 L (23-28) mmol/L VBG Total CO2 6 L (24-29) mmol/L VBG O2 Saturation 67 L (70-75) % VBG Base Excess -23.0 L (0-4) mmol/L Sodium (137-145) mmol/L Potassium (3.4-5.1) mmol/L Chloride (98-107) mmol/L Carbon Dioxide (22-32) mmol/L BUN (7-17) mg/dL Creatinine (0.52-1.04) mg/dL Estimated GFR (>60) mL/min BUN/Creatinine Ratio (6-22) Glucose (70-100) mg/dL Lactate 1.3 (0.7-2.1) mmol/L Calcium (8.4-10.2) mg/dL Total Bilirubin (0.2-1.3) mg/dL AST (14-36) IU/L ALT (<35) IU/L Alkaline Phosphatase (38-126) U/L Total Protein (6.3-8.2) g/dL Albumin (3.5-5.0) g/dL Globulin (1.7-4.1) g/dL Albumin/Globulin Ratio (1.0-2.8) Procalcitonin (<0.5) ng/mL Urine Color Urine Appearance Urine pH (4.5-8.0) Ur Specific [place] (1.000-1.035) Urine Protein (Negative) Urine Glucose (UA) (Negative) g/dL Urine Ketones (NEGATIVE) Urine Occult Blood (Negative) Urine Nitrate (Negative) Urine Bilirubin (NEGATIVE) Urine Urobilinogen (0.2) E.U./dL Ur Leukocyte Esterase (NEGATIVE) Urine RBC (0-5/HPF) Urine WBC (0-5/HPF) Ur Squamous Epith Cells (0-5/HPF) Amorphous Sediment Urine Bacteria (None) Urine Mucus (Negative) Ur Culture Indicated? Urine Test (Negative) Ketones (<0.27) mmol/L COVID-19 PCR Negative (Negative) 10/14/19 10/14/19 Range/Units 16:25 16:25 WBC (4.5-11.0) X10^3/uL RBC (4.0-5.2) X10^6/uL Hgb (12.0-16.0) g/dL Hct (36-46) % MCV (80-100) fL MCH (26-34) PG MCHC (30-36) % RDW (11.6-14.8) % Plt Count (150-400) X10^3/uL Neut % (Auto) (50-75) % Lymph % (Auto) (25-40) % Cass % (Auto) (3-14) % Eos % (Auto) (2-4) % Baso % (Auto) (0-2) % Neut # (Auto) (7667-2953) /uL Lymph # (Auto) (4922-6846) /uL Cass # (Auto) (0-900) /uL Eos # (Auto) (0-450) /uL Baso # (Auto) (0-100) /uL VBG pH (7.33-7.43) VBG pCO2 (45-50) mmHg VBG pO2 (35-45) mmHg VBG HCO3 (23-28) mmol/L VBG Total CO2 (24-29) mmol/L VBG O2 Saturation (70-75) % VBG Base Excess (0-4) mmol/L Sodium (137-145) mmol/L Potassium (3.4-5.1) mmol/L Chloride (98-107) mmol/L Carbon Dioxide (22-32) mmol/L BUN (7-17) mg/dL Creatinine (0.52-1.04) mg/dL Estimated GFR (>60) mL/min BUN/Creatinine Ratio (6-22) Glucose (70-100) mg/dL Lactate (0.7-2.1) mmol/L Calcium (8.4-10.2) mg/dL Total Bilirubin (0.2-1.3) mg/dL AST (14-36) IU/L ALT (<35) IU/L Alkaline Phosphatase (38-126) U/L Total Protein (6.3-8.2) g/dL Albumin (3.5-5.0) g/dL Globulin (1.7-4.1) g/dL Albumin/Globulin Ratio (1.0-2.8) Procalcitonin (<0.5) ng/mL Urine Color Yellow Urine Appearance Clear Urine pH 5.0 (4.5-8.0) Ur Specific [place] 1.010 (1.000-1.035) Urine Protein Negative (Negative) Urine Glucose (UA) 2+ H (Negative) g/dL Urine Ketones 3+ H (NEGATIVE) Urine Occult Blood Trace-lysed (Negative) Urine Nitrate Negative (Negative) Urine Bilirubin Negative (NEGATIVE) Urine Urobilinogen 0.2 (0.2) E.U./dL Ur Leukocyte Esterase Negative (NEGATIVE) Urine RBC 0-1/hpf (0-5/HPF) Urine WBC 1-5/hpf (0-5/HPF) Ur Squamous Epith Cells 1-5 /hpf (0-5/HPF) Amorphous Sediment 1+ Urine Bacteria Few (2-10) H (None) Urine Mucus 1+ H (Negative) Ur Culture Indicated? Specimen cultured Urine Test Negative (Negative) Ketones (<0.27) mmol/L COVID-19 PCR (Negative) Point of Care Testing Glucose POC 500 Point of care testing: Point of Care Testing Glucose POC 500 [place] Narrative Medical decision making narrative: 29-year-old type 1 diabetic with the history of multiple recurrent episodes of DKA. Current 24 hours of symptoms with significant diarrhea. Fluctuant area on her scalp is I &D with mostly serous fluid that is slightly purulent drained. No surrounding cellulitis. With minimally elevated white blood cell count, normal procalcitonin and non elevated lactic acid I am not impressed that she is septic. Without fevers and in light of the diarrhea that may be Clostridium difficile I am not going to start antibiotics until cultures or other clinical data suggests that it is more appropriate. In the meantime, IV fluids are started will need an insulin drip and hospital admission. Urine culture will need to be obtained she has not yet voided. There are no pulmonary symptoms. Will test her for Covid in light of admission 1710 care is reviewed with Dr. Weinberg. Requested single dose of IV Vanco and ceftriaxone not urine is back. Urine is cultured but does not look particularly infected at this point. She will be admitted to the ICU. We discussed the possibility of having a port placed with this hospital admission. Her IV access is tenuous at best and always an issue when she comes in. We also talked about again redirecting her to a more stable primary care physician rather than the residency clinic and will reiterate the need for an actual elevator examiner and adjuster with whom she can develop a relationship rather than the local [facility] outpatient endocrinology available at [facility]. Patient is safe for transfer to the ICU Discharge Plan Departure Patient Disposition: Admitted As Inpatient Clinical Impression: DKA (diabetic ketoacidoses) Qualifiers: Diabetes mellitus type: type 1 Diabetes mellitus complication detail: without coma Qualified Code(s): E10.10 - Type 1 diabetes mellitus with ketoacidosis without coma Admit Date/Time: 10/14/19 17:12 Admit Provider: Julio Cesar Weinberg
[2019-10-14] MEDS: SODIUM CHLORIDE 0.9% 1,000 ML 1000 ML IV ×2 (14:37→15:43)
[2019-10-14] MEDS: HYDROMORPHONE 1 MG INJ IV (14:37)
[2019-10-14] MEDS: ONDANSETRON 4 MG/2 ML INJ IV ×2 (14:37→15:21)
[2019-10-14 14:46] LABS: Add Manual Diff / Slide Review NO; Basophils Absolute Auto 200 /uL (0-100); Basophils Percent Auto 1.4 % (0-2); Eosinophils Absolute Auto 0 /uL (0-450); Eosinophils Percent Auto 0.2 % (2-4); Hematocrit 43.8 % (36-46); Hemoglobin 14.5 g/dL (12.0-16.0); Lymphocytes Absolute Auto 2400 /uL (1100-4500); Lymphocytes Percent Auto 21.9 % (25-40); Mean Corpuscular Hemoglobin 33.8 PG (26-34); Mean Corpuscular Volume 102.3 fL (80-100); Monocytes Absolute Auto 400 /uL (0-900); Monocytes Percent Auto 3.7 % (3-14); Neutrophils Absolute Auto 8200 /uL (1500-7000); Neutrophils Percent Auto 72.8 % (50-75); Platelet Count 635 X10^3/uL (150-400); Red Blood Cell Count 4.28 X10^6/uL (4.0-5.2); Red Cell Distribution Width 13.7 % (11.6-14.8); White Blood Cell Count 11.2 X10^3/uL (4.5-11.0)
[2019-10-14 14:51] LABS: HCO3 VBG 6 mmol/L (23-28); PCO2 VBG 17.7 mmHg (45-50); PO2 VBG 44 mmHg (35-45); Total CO2 VBG 6 mmol/L (24-29); pH VBG 7.13 (7.33-7.43)
[2019-10-14 14:52] LABS: Oxygen Saturation VBG 67 % (70-75)
[2019-10-14 14:55] LABS: HEMOLYSIS < 15 (0-50)
[2019-10-14 14:59] LABS: Alanine Aminotransferase 22 IU/L (<35); Albumin Globulin Ratio 1.5 (1.0-2.8); Alkaline Phosphatase 248 U/L (38-126); Aspartate Aminotransferase 18 IU/L (14-36); Bilirubin Total 0.5 mg/dL (0.2-1.3); Blood Urea Nitrogen 25 mg/dL (7-17); Calcium 10.3 mg/dL (8.4-10.2); Chloride 92 mmol/L (98-107); Estimated Glomerular Filt Rate > 60.0 mL/min (>60); Globulin 3.4 g/dL (1.7-4.1); Potassium 4.9 mmol/L (3.4-5.1); Sodium 132 mmol/L (137-145); Total Protein 8.4 g/dL (6.3-8.2)
[2019-10-14 15:00] LABS: Lactate (Lactic Acid) 1.3 mmol/L (0.7-2.1)
[2019-10-14 15:09] LABS: Glucose 762 mg/dL (70-100)
[2019-10-14 15:12] LABS: Carbon Dioxide < 5 mmol/L (22-32)
[2019-10-14 15:15] LABS: Procalcitonin < 0.05 ng/mL (<0.5)
[2019-10-14] MEDS: HYDROMORPHONE 1 MG INJ (15:21)
[2019-10-14 15:59] LABS: Ketones (Beta-Hydroxybutyrate) 16.47 mmol/L (<0.27)
[2019-10-14] MEDS: INSULIN DRIP PREMIX 100 UNIT/100 ML PLAST..BAG 6 UNIT IV (16:09)
[2019-10-14] MEDS: POTASSIUM CHLORIDE 40 MEQ in SODIUM CHLORIDE 0.9% 500 ML 130 ML IV (16:11)
[2019-10-14 16:40] LABS: Appearance Urine UA CLEAR; Bilirubin Urine UA NEGATIVE (NEGATIVE); Color Urine UA YELLOW; Glucose Urine UA 2+ g/dL (Negative); Ketones Urine UA 3+ (NEGATIVE); Leukocyte Esterase Urine UA NEGATIVE (NEGATIVE); Nitrite Urine UA NEGATIVE (Negative); Occult Blood Urine UA TRACE-LYSED (Negative); Protein Urine UA NEGATIVE (Negative); Urobilinogen Urine UA 0.2 E.U./dL (0.2)
[2019-10-14 16:43] LABS: Pregnancy Test Urine Negative (Negative)
[2019-10-14 16:47] LABS: Amorphous Sediment Urine 1+; Bacteria Urine Few (2-10); Culture Indicated Urine Specimen Cultured; Mucus Urine 1+ (Negative); RBC Urine 0-1/HPF (0-5/HPF); Squamous Epithelial Cell Urine 1-5 /HPF (0-5/HPF); WBC Urine 1-5/HPF (0-5/HPF)
[2019-10-14 16:58] LABS: COVID19 -Nasal RAPID Negative (Negative)
[2019-10-14] MEDS: SODIUM CHLORIDE 0.9% 1,000 ML 50 ML IV (17:12)
--- NOTE | 2019-10-14 17:22 | PM.HP.1 ---
History of Present Illness History of Present Illness Date Patient Seen: 10/14/19 Time Patient Seen: 18:00 Chief complaint: nausea/dm/2 wks ago staph inf./dehyd. Narrative: Ms. Sarabjit Jimenes is a 28-year-old female patient with a history significant for type 1 diabetes with frequent , migraines, irregular menstruation and prior pyelolithiasis and diabetic cystopathy who presents to the ER with complaints of feeling dehydrated, nausea. She was recently admitted for DKA two weeks ago, prior to that she had been several months without DKA. She was sent home on oral antibiotics and her scalp lesions seemingly were improved, not causing her any pain. She had not followed up with primary care or endocrinology since her last admission. Since then she has complained of soft, potentially loose stools but never watery or too frequent. She denies any recent chest pain, shortness of breath, cough, fever, chills, abdominal pain, flank pain, dysuria, urinary frequency, or vaginal discharge. She denies any known exposure to COVID-19, and has been socially isolating due to her diabetes. She has a very brittle type 1 diabetic frequent admissions for DKA, however the last admission was approximately 7 months ago. She does not recall her most recent A1c. On arrival in the emergency room, patient appeared dehydrated, tachycardic. She was given 2L fluid bolus. Initial labs were drawn which showed a leukocytosis of 11.2, platelet of 635. Blood gas showed a pH of 7.13, bicarb of 6. Chemistries showed a sodium of 132, chloride of 92, CO2 of less than 5. Creatinine was 0.96 up from her baseline around 0.5. Anion gap was greater than 35 given CO2 of less than 5 on BMP. Glucose was 762. Ketones were positive. Alk-phos was mildly elevated at 248 but other chemistries are unremarkable. Procalcitonin was negative at less than 0.05. UA is was performed which showed glucose and ketones, there were no rbc's and only 1-5 wbc's with 1-5 squamous cells per high-power field. Specimen was sent for culture. COVID-19 testing performed in the ER was negative. EKG showed a sinus tachycardia without evidence of active ischemia. She did have a more fluctuant lesion on the top of her head, which the ED performed an I&D on, and cultures were sent. Cultures from previous admission of her scalp lesion grew MSSA. Patient was admitted to the ICU for DKA. Patient History Medical History DKA (diabetic ketoacidoses) (Resolved) History of pyelonephritis (Resolved) Irregular menstrual cycle (Acute) Migraine headache (Chronic) Nephrolithiasis (Resolved) Type 1 diabetes mellitus (Chronic) Surgical History History of ureter stent (Resolved) Status post laser lithotripsy of ureteral calculus (Acute) [place] teeth extracted (Acute) Family & Social History Family History Father In good health Mother Cardiac disease Social History: household members significant other,family Tobacco & Substance use: Smoking Status Never smoker alcohol intake never alcohol intake frequency holiday/special occasion Substance Use Type does not use Meds Home Medications and Allergies Home Medications Medication Instructions Recorded Confirmed Type glucose 4 gram PO Q15M PRN #30 tab 12/12/18 09/30/19 Rx Glucagon Emergency Kit (human) 1 mg SUBCUT DIRECTED 02/16/19 09/30/19 History insulin lispro [Humalog KwikPen See Rx Instructions .ROUTE 03/10/19 09/30/19 Rx Insulin] .COMPLEX #0 ml Tresiba FlexTouch U-100 40 unit SUBCUT DAILY 09/30/19 09/30/19 History Allergies Allergy/AdvReac Type Severity Reaction Status Date / Time abdalla [ABDALLA] Allergy Intermediate Hives, Verified 10/14/19 14:49 pruritus iodine [IODINE] Allergy Intermediate rash, itchy Verified 10/14/19 14:49 morphine Allergy Intermediate Difficulty Verified 10/14/19 14:49 Breathing shellfish derived Allergy Intermediate rash Verified 10/14/19 14:49 [SHELLFISH DERIVED] adhesive [ADHESIVE] Allergy Unknown tape Verified 10/14/19 14:49 latex [LATEX] Allergy Unknown Hives Verified 10/14/19 14:49 Review of Systems Review of Systems Narrative: All other systems reviewed with the patient and are negative unless otherwise stated. Exam Vital Signs (past 8 hours): - 10/14/19 14:10 10/14/19 15:15 10/14/19 15:30 Temperature 99.4 F Pulse Rate 123 H 113 H 118 H Respiratory Rate 19 14 14 Blood Pressure [Right Arm] 131/82 119/72 117/63 Pulse Oximetry 100 100 99 10/14/19 16:26 10/14/19 16:30 10/14/19 17:08 Temperature Pulse Rate 126 H 122 H 127 H Respiratory Rate 14 15 14 Blood Pressure [Right Arm] 128/80 116/71 115/72 Pulse Oximetry 100 100 100 Oxygen Delivery Method Room Air Narrative Exam Narrative: GENERAL APPEARANCE: Acutely ill-appearing young female, but in no acute distress. Slightly pale. SKIN: Inspection of the skin reveals open lesion on her forehead with no surrounding erythema and smaller than previous, other more posterior lesion with dressing on top. HEENT: Normocephalic atraumatic, scalp lesions as noted above. Extraocular muscles are intact, oropharynx is clear and mucous membranes are very dry, neck is supple without adenopathy NECK: Supple and symmetric. There was no thyroid enlargement, and no tenderness, or masses were felt. CHEST: Normal AP diameter and normal contour without any kyphoscoliosis. LUNGS: Auscultation of the lungs revealed no wheezes, rhonchi, or rales. CARDIOVASCULAR: There was a tachycardic rate and regular rhythm without any murmurs, gallops, rubs. Peripheral pulses were 2+ and symmetric. ABDOMEN: Soft and nontender with normal bowel sounds. No ascites was noted. No flank tenderness. MUSCULOSKELETAL: There was no tenderness or effusions noted. Muscle strength and tone were normal. EXTREMITIES: No cyanosis, clubbing or edema. NEUROLOGIC: Alert and oriented x 3. Normal affect. Strength is +5/5 in the Upper Extremities and Lower Extremities Bilaterally. Sensation to touch was normal. Objective Labs Result Diagrams: 10/14/19 14:30 10/14/19 14:30 Labs: Laboratory Results - last 24 hr 10/14/19 10/14/19 10/14/19 14:30 14:30 14:30 WBC 11.2 H RBC 4.28 Hgb 14.5 Hct 43.8 MCV 102.3 H MCH 33.8 MCHC 33.0 RDW 13.7 Plt Count 635 H Neut % (Auto) 72.8 Lymph % (Auto) 21.9 L [place] % (Auto) 3.7 Eos % (Auto) 0.2 L Baso % (Auto) 1.4 Neut # (Auto) 8200 H Lymph # (Auto) 2400 [place] # (Auto) 400 Eos # (Auto) 0 Baso # (Auto) 200 H VBG pH VBG pCO2 VBG pO2 VBG HCO3 VBG Total CO2 VBG O2 Saturation VBG Base Excess Sodium 132 L Potassium 4.9 Chloride 92 L Carbon Dioxide < 5 L* BUN 25 H Creatinine 0.96 Estimated GFR > 60.0 BUN/Creatinine Ratio 26.0 H Glucose 762 H* Lactate Calcium 10.3 H Total Bilirubin 0.5 AST 18 ALT 22 Alkaline Phosphatase 248 H Total Protein 8.4 H Albumin 5.0 Globulin 3.4 Albumin/Globulin Ratio 1.5 Procalcitonin < 0.05 Urine Color Urine Appearance Urine pH Ur Specific [place] Urine Protein Urine Glucose (UA) Urine Ketones Urine Occult Blood Urine Nitrate Urine Bilirubin Urine Urobilinogen Ur Leukocyte Esterase Urine RBC Urine WBC Ur Squamous Epith Cells Amorphous Sediment Urine Bacteria Urine Mucus Ur Culture Indicated? Urine Test Ketones 16.47 H COVID-19 PCR 10/14/19 10/14/19 10/14/19 14:30 14:31 15:52 WBC RBC Hgb Hct MCV MCH MCHC RDW Plt Count Neut % (Auto) Lymph % (Auto) [place] % (Auto) Eos % (Auto) Baso % (Auto) Neut # (Auto) Lymph # (Auto) [place] # (Auto) Eos # (Auto) Baso # (Auto) VBG pH 7.13 L* VBG pCO2 17.7 L VBG pO2 44 VBG HCO3 6 L VBG Total CO2 6 L VBG O2 Saturation 67 L VBG Base Excess -23.0 L Sodium Potassium Chloride Carbon Dioxide BUN Creatinine Estimated GFR BUN/Creatinine Ratio Glucose Lactate 1.3 Calcium Total Bilirubin AST ALT Alkaline Phosphatase Total Protein Albumin Globulin Albumin/Globulin Ratio Procalcitonin Urine Color Urine Appearance Urine pH Ur Specific [place] Urine Protein Urine Glucose (UA) Urine Ketones Urine Occult Blood Urine Nitrate Urine Bilirubin Urine Urobilinogen Ur Leukocyte Esterase Urine RBC Urine WBC Ur Squamous Epith Cells Amorphous Sediment Urine Bacteria Urine Mucus Ur Culture Indicated? Urine Test Ketones COVID-19 PCR Negative 10/14/19 10/14/19 16:25 16:25 WBC RBC Hgb Hct MCV MCH MCHC RDW Plt Count Neut % (Auto) Lymph % (Auto) [place] % (Auto) Eos % (Auto) Baso % (Auto) Neut # (Auto) Lymph # (Auto) [place] # (Auto) Eos # (Auto) Baso # (Auto) VBG pH VBG pCO2 VBG pO2 VBG HCO3 VBG Total CO2 VBG O2 Saturation VBG Base Excess Sodium Potassium Chloride Carbon Dioxide BUN Creatinine Estimated GFR BUN/Creatinine Ratio Glucose Lactate Calcium Total Bilirubin AST ALT Alkaline Phosphatase Total Protein Albumin Globulin Albumin/Globulin Ratio Procalcitonin Urine Color Yellow Urine Appearance Clear Urine pH 5.0 Ur Specific [place] 1.010 Urine Protein Negative Urine Glucose (UA) 2+ H Urine Ketones 3+ H Urine Occult Blood Trace-lysed Urine Nitrate Negative Urine Bilirubin Negative Urine Urobilinogen 0.2 Ur Leukocyte Esterase Negative Urine RBC 0-1/hpf Urine WBC 1-5/hpf Ur Squamous Epith Cells 1-5 /hpf Amorphous Sediment 1+ Urine Bacteria Few (2-10) H Urine Mucus 1+ H Ur Culture Indicated? Specimen cultured Urine Test Negative Ketones COVID-19 PCR Assessment & Plan Assessment & Plan narrative: Ms. Sarabjit Jimenes is a 28-year-old female patient with a history significant for type 1 diabetes, migraines, irregular menstruation and prior pyelolithiasis who presents to the ER with complaints of feeling dehydrated and painful lesions on her head. She is admitted with DKA to the intensive care unit. 1. Type 1 diabetes with diabetic ketoacidosis, acute, present on admission -patient with presenting VBG of pH 7.13, and a bicarb of 6. AG is >35. Serum bicarb is noted to be less than 5. Admission glucose 762 with elevated ketones. -patient was given 2 L of fluid bolus in the emergency room and started on insulin infusion. Will likely need more fluid resuscitation. Will continue at 250 cc per hour for now. -continue insulin gtt until glucose is improved, AG has closed, and bicarb is increased above 15. -initial potassium 4.9, will continue to trend BMP q.4 hours -continue telemetry monitoring -q.1 hour fingersticks -NPO but okay for occasional sips and ice chips -source is not entirely clear at this time. Urine culture pending. No current respiratory symptoms. Patient does again have her scalp lesions which required I&D in the ER. Follow up repeat wound culture. Blood cultures are also pending. Will send off GI panel as well given loose stools and recent antibiotic use. 2. scalp folliculitis, acute, present on admission - while NPO will give Ceftriaxone 1g q24 hours given previous MSSA, given one dose of vancomycin in the ER. S/p I&D in the ER. - convert to oral therapy when available - wound culture obtained prior to antibiotics, will follow up results. 3. History of neurogenic bladder - no current symptomatology - UA with 1-5 WBC but also 1-5 squamous cells. Follow up culture. On ceftriaxone as noted above. - continue timed voids every 4 hours while awake. I spent 30 minutes providing critical care management this patient. This excludes time spent in performing separately billed procedures. Dispo: Admit to ICU for DKA Code: Full, surrogate decision maker is patient's fiance DVT: HSQ IVF: NS @ 250 cc after fluid boluses. DKA protocol with D5 if still low bicarb and decreased sugars. COVID-19 COVID-19 status: Negative
[2019-10-14] MEDS: HYDROMORPHONE 0.5 MG INJ 1 MG IV (17:40)
[2019-10-14] MEDS: CEFTRIAXONE 2 GM/50 ML FROZ.PIGGY IV (18:00)
[2019-10-14 18:44] LABS: Magnesium 2.4 mg/dL (1.6-2.3)
[2019-10-14 19:45] LABS: BUN Creatinine Ratio 25.9 (6-22); Blood Urea Nitrogen 22 mg/dL (7-17); Calcium 9.1 mg/dL (8.4-10.2); Chloride 109 mmol/L (98-107); Estimated Glomerular Filt Rate > 60.0 mL/min (>60); Glucose 350 mg/dL (70-100); HEMOLYSIS < 15 (0-50); Potassium 4.5 mmol/L (3.4-5.1); Sodium 141 mmol/L (137-145)
[2019-10-14 19:46] LABS: Carbon Dioxide 5 mmol/L (22-32)
[2019-10-14] MEDS: HYDROMORPHONE 1 MG INJ 0.5 MG IV (19:53)
[2019-10-14] MEDS: VANCOMYCIN 1,500 MG/300 ML FROZ.PIGGY 200 MG IV (19:56)
[2019-10-14] MEDS: DEXTROSE 5%-0.45% NS 1,000 ML 66 ML IV ×2 (20:47→22:22)
[2019-10-14] MEDS: HYDROMORPHONE 0.5 MG INJ IV (23:56)
[2019-10-15] VITALS (14 sets, daily range): BP systolic 91–113; BP diastolic 53–71; PULSE 87–105; RESP 8–21; TEMP 36.5–36.8; O2SAT 95–100
[2019-10-15 00:12] LABS: BUN Creatinine Ratio 27.9 (6-22); Blood Urea Nitrogen 19 mg/dL (7-17); Calcium 8.9 mg/dL (8.4-10.2); Carbon Dioxide 14 mmol/L (22-32); Chloride 111 mmol/L (98-107); Estimated Glomerular Filt Rate > 60.0 mL/min (>60); Glucose 86 mg/dL (70-100); HEMOLYSIS < 15 (0-50); Magnesium 1.9 mg/dL (1.6-2.3); Phosphorous 2.9 mg/dL (2.5-4.5); Potassium 4.3 mmol/L (3.4-5.1); Sodium 140 mmol/L (137-145)
[2019-10-15] MEDS: DEXTROSE 5%-0.45% NS 1,000 ML 150 ML IV ×2 (00:51→05:25)
[2019-10-15] MEDS: HYDROMORPHONE 2 MG INJ 1 MG IV ×2 (04:36→08:20)
[2019-10-15 04:58] LABS: Add Manual Diff / Slide Review NO; Basophils Absolute Auto 0 /uL (0-100); Basophils Percent Auto 0.5 % (0-2); Eosinophils Absolute Auto 100 /uL (0-450); Eosinophils Percent Auto 0.7 % (2-4); Hematocrit 34.3 % (36-46); Hemoglobin 11.8 g/dL (12.0-16.0); Lymphocytes Absolute Auto 2100 /uL (1100-4500); Mean Corpuscular HGB Conc 34.5 % (30-36); Mean Corpuscular Hemoglobin 33.4 PG (26-34); Mean Corpuscular Volume 96.9 fL (80-100); Monocytes Absolute Auto 500 /uL (0-900); Monocytes Percent Auto 5.5 % (3-14); Neutrophils Absolute Auto 6000 /uL (1500-7000); Neutrophils Percent Auto 69.3 % (50-75); Platelet Count 468 X10^3/uL (150-400); Red Blood Cell Count 3.54 X10^6/uL (4.0-5.2); Red Cell Distribution Width 13.3 % (11.6-14.8); White Blood Cell Count 8.6 X10^3/uL (4.5-11.0)
[2019-10-15 05:02] LABS: Alanine Aminotransferase 16 IU/L (<35); Albumin 3.6 g/dL (3.5-5.0); Albumin Globulin Ratio 1.2 (1.0-2.8); Alkaline Phosphatase 112 U/L (38-126); Aspartate Aminotransferase 17 IU/L (14-36); BUN Creatinine Ratio 28.8 (6-22); Bilirubin Total 0.3 mg/dL (0.2-1.3); Bilirubin Unconjugated 0.3 mg/dL (0.0-1.1); Blood Urea Nitrogen 17 mg/dL (7-17); Calcium 8.6 mg/dL (8.4-10.2); Carbon Dioxide 17 mmol/L (22-32); Chloride 113 mmol/L (98-107); Estimated Glomerular Filt Rate > 60.0 mL/min (>60); Globulin 2.9 g/dL (1.7-4.1); Glucose 153 mg/dL (70-100); HEMOLYSIS < 15 (0-50); Magnesium 1.9 mg/dL (1.6-2.3); Potassium 3.6 mmol/L (3.4-5.1); Sodium 138 mmol/L (137-145); Total Protein 6.5 g/dL (6.3-8.2)
[2019-10-15 05:05] LABS: Hemoglobin A1C% w Est Avg Glu > 14.0 % (4.0-6.0)
[2019-10-15] MEDS: POTASSIUM CHLORIDE 40 MEQ in SODIUM CHLORIDE 0.9% 500 ML 130 ML IV (05:35)
--- NOTE | 2019-10-15 06:48 | PC.NURSE ---
Control Operator Note-Patient is fatigued and tearful at times when back pain is 10/10 medicated with IV Dilaudid per prn. Insulin gtt continues along with D5 1/2NS @ 150ml/hr, taking ice chips only, no N/V. No stools. 40meq K+ rider infusing this am for K+ 3.6.
[2019-10-15 11:41] LABS: BUN Creatinine Ratio 26.5 (6-22); Blood Urea Nitrogen 13 mg/dL (7-17); Calcium 8.3 mg/dL (8.4-10.2); Carbon Dioxide 18 mmol/L (22-32); Chloride 115 mmol/L (98-107); Estimated Glomerular Filt Rate > 60.0 mL/min (>60); Glucose 94 mg/dL (70-100); HEMOLYSIS < 15 (0-50); Potassium 3.5 mmol/L (3.4-5.1); Sodium 138 mmol/L (137-145)
--- NOTE | 2019-10-15 11:57 | P.PN_ITS ---
Subjective Subjective Date Patient Seen: 10/15/19 Time Patient Seen: 11:58 Interval history: Ms. Sarabjit Jimenes is a 29-year-old female patient with a history significant for type 1 diabetes with frequent , migraines, irregular menstruation and prior pyelolithiasis and diabetic cystopathy who is admitted for DKA. Her anion gap is now closed and her bicarb is up to 18 on repeat labs this morning. Her insulin infusion will be turned later this afternoon, after r eceiving her home Tresiba dose around noon. She still feels weak in complains hunger pains in her stomach this morning, but otherwise feels quite well. She denies any chest pain, palpitations, shortness of breath, lower extremity edema. She states the I&D site from yesterday no longer hurts. Exam Vital Signs (past 8 hours): - 10/15/19 04:00 10/15/19 04:39 10/15/19 05:00 Temperature 97.8 F Pulse Rate 96 H 105 H Respiratory Rate 8 L 16 Blood Pressure 97/64 97/55 L Pulse Oximetry 10/15/19 06:00 10/15/19 07:46 10/15/19 08:00 Temperature 98.0 F Pulse Rate 95 H 88 97 H Respiratory Rate 12 21 21 Blood Pressure 91/54 L 104/66 Pulse Oximetry 100 99 Oxygen Delivery Method Room Air Narrative Exam Narrative: GENERAL APPEARANCE: young female, thin, fatigued, in no acute distress. Slightly pale. SKIN: Inspection of the skin reveals open lesion on her forehead with no surrounding erythema and smaller than previous, other more posterior lesion with mild surrounding induration but no erythema. Small area scabbed over. Nontender. HEENT: Normocephalic atraumatic, scalp lesions as noted above. Extraocular muscles are intact, oropharynx is clear and mucous membranes are very dry, neck is supple without adenopathy NECK: Supple and symmetric. There was no thyroid enlargement, and no tenderness, or masses were felt. CHEST: Normal AP diameter and normal contour without any kyphoscoliosis. LUNGS: Auscultation of the lungs revealed no wheezes, rhonchi, or rales. CARDIOVASCULAR: There was a tachycardic rate and regular rhythm without any murmurs, gallops, rubs. Peripheral pulses were 2+ and symmetric. ABDOMEN: Soft and nontender with normal bowel sounds. No ascites was noted. No flank tenderness. MUSCULOSKELETAL: There was no tenderness or effusions noted. Muscle strength and tone were normal. EXTREMITIES: No cyanosis, clubbing or edema. NEUROLOGIC: Alert and oriented x 3. Normal affect. Strength is +5/5 in the Upper Extremities and Lower Extremities Bilaterally. Sensation to touch was normal. Objective Labs Result Diagrams: 10/15/19 04:30 10/15/19 11:20 Labs: Laboratory Results - last 24 hr 10/14/19 10/14/19 10/14/19 14:30 14:30 14:30 WBC 11.2 H RBC 4.28 Hgb 14.5 Hct 43.8 MCV 102.3 H MCH 33.8 MCHC 33.0 RDW 13.7 Plt Count 635 H Neut % (Auto) 72.8 Lymph % (Auto) 21.9 L [place] % (Auto) 3.7 Eos % (Auto) 0.2 L Baso % (Auto) 1.4 Neut # (Auto) 8200 H Lymph # (Auto) 2400 [place] # (Auto) 400 Eos # (Auto) 0 Baso # (Auto) 200 H VBG pH VBG pCO2 VBG pO2 VBG HCO3 VBG Total CO2 VBG O2 Saturation VBG Base Excess Sodium 132 L Potassium 4.9 Chloride 92 L Carbon Dioxide < 5 L* BUN 25 H Creatinine 0.96 Estimated GFR > 60.0 BUN/Creatinine Ratio 26.0 H Glucose 762 H* Hemoglobin A1c Lactate Calcium 10.3 H Phosphorus Magnesium Total Bilirubin 0.5 Conjugated Bilirubin Unconjugated Bilirubin AST 18 ALT 22 Alkaline Phosphatase 248 H Total Protein 8.4 H Albumin 5.0 Globulin 3.4 Albumin/Globulin Ratio 1.5 Procalcitonin < 0.05 Urine Color Urine Appearance Urine pH Ur Specific [place] Urine Protein Urine Glucose (UA) Urine Ketones Urine Occult Blood Urine Nitrate Urine Bilirubin Urine Urobilinogen Ur Leukocyte Esterase Urine RBC Urine WBC Ur Squamous Epith Cells Amorphous Sediment Urine Bacteria Urine Mucus Ur Culture Indicated? Urine Test Nasal Screen MRSA (PCR) Ketones 16.47 H COVID-19 PCR 10/14/19 10/14/19 10/14/19 14:30 14:30 14:31 WBC RBC Hgb Hct MCV MCH MCHC RDW Plt Count Neut % (Auto) Lymph % (Auto) [place] % (Auto) Eos % (Auto) Baso % (Auto) Neut # (Auto) Lymph # (Auto) [place] # (Auto) Eos # (Auto) Baso # (Auto) VBG pH 7.13 L* VBG pCO2 17.7 L VBG pO2 44 VBG HCO3 6 L VBG Total CO2 6 L VBG O2 Saturation 67 L VBG Base Excess -23.0 L Sodium Potassium Chloride Carbon Dioxide BUN Creatinine Estimated GFR BUN/Creatinine Ratio Glucose Hemoglobin A1c Lactate 1.3 Calcium Phosphorus Magnesium 2.4 H Total Bilirubin Conjugated Bilirubin Unconjugated Bilirubin AST ALT Alkaline Phosphatase Total Protein Albumin Globulin Albumin/Globulin Ratio Procalcitonin Urine Color Urine Appearance Urine pH Ur Specific [place] Urine Protein Urine Glucose (UA) Urine Ketones Urine Occult Blood Urine Nitrate Urine Bilirubin Urine Urobilinogen Ur Leukocyte Esterase Urine RBC Urine WBC Ur Squamous Epith Cells Amorphous Sediment Urine Bacteria Urine Mucus Ur Culture Indicated? Urine Test Nasal Screen MRSA (PCR) Ketones COVID-19 PCR 10/14/19 10/14/19 10/14/19 15:52 16:25 16:25 WBC RBC Hgb Hct MCV MCH MCHC RDW Plt Count Neut % (Auto) Lymph % (Auto) [place] % (Auto) Eos % (Auto) Baso % (Auto) Neut # (Auto) Lymph # (Auto) [place] # (Auto) Eos # (Auto) Baso # (Auto) VBG pH VBG pCO2 VBG pO2 VBG HCO3 VBG Total CO2 VBG O2 Saturation VBG Base Excess Sodium Potassium Chloride Carbon Dioxide BUN Creatinine Estimated GFR BUN/Creatinine Ratio Glucose Hemoglobin A1c Lactate Calcium Phosphorus Magnesium Total Bilirubin Conjugated Bilirubin Unconjugated Bilirubin AST ALT Alkaline Phosphatase Total Protein Albumin Globulin Albumin/Globulin Ratio Procalcitonin Urine Color Yellow Urine Appearance Clear Urine pH 5.0 Ur Specific [place] 1.010 Urine Protein Negative Urine Glucose (UA) 2+ H Urine Ketones 3+ H Urine Occult Blood Trace-lysed Urine Nitrate Negative Urine Bilirubin Negative Urine Urobilinogen 0.2 Ur Leukocyte Esterase Negative Urine RBC 0-1/hpf Urine WBC 1-5/hpf Ur Squamous Epith Cells 1-5 /hpf Amorphous Sediment 1+ Urine Bacteria Few (2-10) H Urine Mucus 1+ H Ur Culture Indicated? Specimen cultured Urine Test Negative Nasal Screen MRSA (PCR) Ketones COVID-19 PCR Negative 10/14/19 10/14/19 10/14/19 18:55 19:24 23:50 WBC RBC Hgb Hct MCV MCH MCHC RDW Plt Count Neut % (Auto) Lymph % (Auto) [place] % (Auto) Eos % (Auto) Baso % (Auto) Neut # (Auto) Lymph # (Auto) [place] # (Auto) Eos # (Auto) Baso # (Auto) VBG pH VBG pCO2 VBG pO2 VBG HCO3 VBG Total CO2 VBG O2 Saturation VBG Base Excess Sodium 141 140 Potassium 4.5 4.3 Chloride 109 H 111 H Carbon Dioxide 5 L* 14 L BUN 22 H 19 H Creatinine 0.85 0.68 Estimated GFR > 60.0 > 60.0 BUN/Creatinine Ratio 25.9 H 27.9 H Glucose 350 H D 86 D Hemoglobin A1c Lactate Calcium 9.1 8.9 Phosphorus 2.9 Magnesium 1.9 Total Bilirubin Conjugated Bilirubin Unconjugated Bilirubin AST ALT Alkaline Phosphatase Total Protein Albumin Globulin Albumin/Globulin Ratio Procalcitonin Urine Color Urine Appearance Urine pH Ur Specific [place] Urine Protein Urine Glucose (UA) Urine Ketones Urine Occult Blood Urine Nitrate Urine Bilirubin Urine Urobilinogen Ur Leukocyte Esterase Urine RBC Urine WBC Ur Squamous Epith Cells Amorphous Sediment Urine Bacteria Urine Mucus Ur Culture Indicated? Urine Test Nasal Screen MRSA (PCR) Negative for mrsa Ketones COVID-19 PCR 10/15/19 10/15/19 10/15/19 04:30 04:30 04:30 WBC 8.6 RBC 3.54 L Hgb 11.8 L Hct 34.3 L MCV 96.9 D MCH 33.4 MCHC 34.5 RDW 13.3 Plt Count 468 H Neut % (Auto) 69.3 Lymph % (Auto) 24.0 L [place] % (Auto) 5.5 Eos % (Auto) 0.7 L Baso % (Auto) 0.5 Neut # (Auto) 6000 Lymph # (Auto) 2100 [place] # (Auto) 500 Eos # (Auto) 100 Baso # (Auto) 0 VBG pH VBG pCO2 VBG pO2 VBG HCO3 VBG Total CO2 VBG O2 Saturation VBG Base Excess Sodium 138 Potassium 3.6 Chloride 113 H Carbon Dioxide 17 L BUN 17 Creatinine 0.59 Estimated GFR > 60.0 BUN/Creatinine Ratio 28.8 H Glucose 153 H Hemoglobin A1c > 14.0 H Lactate Calcium 8.6 Phosphorus Magnesium 1.9 Total Bilirubin 0.3 Conjugated Bilirubin 0.0 Unconjugated Bilirubin 0.3 AST 17 ALT 16 Alkaline Phosphatase 112 D Total Protein 6.5 Albumin 3.6 Globulin 2.9 Albumin/Globulin Ratio 1.2 Procalcitonin Urine Color Urine Appearance Urine pH Ur Specific [place] Urine Protein Urine Glucose (UA) Urine Ketones Urine Occult Blood Urine Nitrate Urine Bilirubin Urine Urobilinogen Ur Leukocyte Esterase Urine RBC Urine WBC Ur Squamous Epith Cells Amorphous Sediment Urine Bacteria Urine Mucus Ur Culture Indicated? Urine Test Nasal Screen MRSA (PCR) Ketones COVID-19 PCR 10/15/19 11:20 WBC RBC Hgb Hct MCV MCH MCHC RDW Plt Count Neut % (Auto) Lymph % (Auto) [place] % (Auto) Eos % (Auto) Baso % (Auto) Neut # (Auto) Lymph # (Auto) [place] # (Auto) Eos # (Auto) Baso # (Auto) VBG pH VBG pCO2 VBG pO2 VBG HCO3 VBG Total CO2 VBG O2 Saturation VBG Base Excess Sodium 138 Potassium 3.5 Chloride 115 H Carbon Dioxide 18 L BUN 13 Creatinine 0.49 L Estimated GFR > 60.0 BUN/Creatinine Ratio 26.5 H Glucose 94 Hemoglobin A1c Lactate Calcium 8.3 L Phosphorus Magnesium Total Bilirubin Conjugated Bilirubin Unconjugated Bilirubin AST ALT Alkaline Phosphatase Total Protein Albumin Globulin Albumin/Globulin Ratio Procalcitonin Urine Color Urine Appearance Urine pH Ur Specific [place] Urine Protein Urine Glucose (UA) Urine Ketones Urine Occult Blood Urine Nitrate Urine Bilirubin Urine Urobilinogen Ur Leukocyte Esterase Urine RBC Urine WBC Ur Squamous Epith Cells Amorphous Sediment Urine Bacteria Urine Mucus Ur Culture Indicated? Urine Test Nasal Screen MRSA (PCR) Ketones COVID-19 PCR Assessment & Plan Assessment & Plan narrative: Ms. Sarabjit Jimenes is a 28-year-old female patient with a history significant for type 1 diabetes, migraines, irregular menstruation and prior pyelolithiasis who presents to the ER with complaints of feeling dehydrated and painful lesions on her head. She remains admitted for DKA, and will be off of her insulin infusion later this afternoon. 1. Type 1 diabetes with diabetic ketoacidosis, acute, present on admission -patient with presenting VBG of pH 7.13, and a bicarb of 6. AG is >35. Serum bicarb is noted to be less than 5. Admission glucose 762 with elevated ketones. -patient was given 2 L of fluid bolus in the emergency room and started on insulin infusion. Will likely need more fluid resuscitation. Will continue at 250 cc per hour for now. -continued insulin gtt until glucose improved, AG has closed now, and bicarb is increased above 15. -initial potassium 4.9, now down to 3.5 with significant repletion today. -continue telemetry monitoring -q.1 hour fingersticks until insulin infusion is stopped, around 2pm. -can start carb controlled diet. -source is not entirely clear at this time. Urine culture pending. No current respiratory symptoms. Patient does again have her scalp lesions which required I&D in the ER. Follow up repeat wound culture. Blood cultures are also pending. No diarrhea here since admission will cancel stool panel. 2. scalp folliculitis, acute, present on admission - while NPO will give Ceftriaxone 1g q24 hours given previous MSSA, given one dose of vancomycin in the ER. S/p I&D in the ER. - convert to oral therapy when available - wound culture obtained prior to antibiotics, will follow up results. 3. History of neurogenic bladder - no current symptomatology - UA with 1-5 WBC but also 1-5 squamous cells. Follow up culture. On ceftriaxone as noted above. - continue timed voids every 4 hours while awake. I spent 30 minutes providing critical care management this patient. This excludes time spent in performing separately billed procedures. Dispo: ICU until off of insulin infusion. Can likely be floor care later today. Anticipate discharge home in the next 24-48 hours. Code: Full, surrogate decision maker is patient's fiance DVT: Lovenox daily COVID-19 COVID-19 status: Negative Quality VTE Deep Vein Thrombosis/Pulmonary Embolism Present on Admission: No
[2019-10-15] MEDS: OXYCODONE IR 5 MG TABLET PO ×2 (12:16→22:00)
[2019-10-15] MEDS: ACETAMINOPHEN 325 MG TABLET 975 MG PO (12:16)
[2019-10-15] MEDS: diphenhydrAMINE 25 MG TABLET PO (12:16)
[2019-10-15] MEDS: PANTOPRAZOLE 20 MG TABLET PO (12:19)
[2019-10-15] MEDS: INSULIN DEGLUDEC 40 UNIT 40 EACH SUBCUT (12:49)
--- NOTE | 2019-10-15 14:01 | PC.NURSE ---
PT INTERMITTENTLY TEARFUL ABOUT THE PAIN ON HER HEAD AND BACK- DENIES ABD DISCOMFORT AND/OR NAUSEA- INSULIN GTT TURNED TO OFF 2 HOURS POST ADMINISTRATION OF PT'S OWN TRESIBA INSULIN- GLUCOSE CHECKS NOW ACHS AND PT IS FLOOR CARE STATUS- ALL IV'S COMPLETED AT THIS TIME- OXYCODONE GIVEN THIS AFTERNOON FOR HEAD/BACK PAIN- TAKING DIABETIC DIET WELL - DECLINES ANY SUGGESTION OF HYGEINE OR BRUSHING TEETH THIS SHIFT- ALSO, GIVEN BENEDRYL FOR C/O ITCHING
--- NOTE | 2019-10-15 16:19 | CM.IDA ---
Initial DCP Assessment Note: Patient is a 29 yo female, resident of [place]. According to clinical note: Ms. Sarabjit Jimenes is a 29-year-old female patient with a history significant for type 1 diabetes with frequent , migraines, irregular menstruation and prior pyelolithiasis and diabetic cystopathy who is admitted for DKA Reviewed chart, spoke w/RAYNA Vazquez and then met w/patient, mom Lorna at bedside, introduced role. Patient currently living w/ BF, mom and dad live nearby in [place]. 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 Will follow closely in case any DC needs/concerns arise. ANGELA
[2019-10-15] MEDS: INSULIN ASPART 100 UNIT/ML INSULN PEN SUBCUT ×3 (17:03→21:08)
[2019-10-15] MEDS: CEFTRIAXONE 1 GM/50 ML FROZ.PIGGY IV (17:42)
[2019-10-16 05:00] VITALS: BP 108/69; PULSE 89; RESP 16; TEMP 36.7; O2SAT 100
[2019-10-16 05:49] LABS: Add Manual Diff / Slide Review NO; Basophils Absolute Auto 0 /uL (0-100); Basophils Percent Auto 0.6 % (0-2); Eosinophils Absolute Auto 100 /uL (0-450); Eosinophils Percent Auto 1.6 % (2-4); Hematocrit 33.7 % (36-46); Hemoglobin 11.8 g/dL (12.0-16.0); Lymphocytes Absolute Auto 1800 /uL (1100-4500); Lymphocytes Percent Auto 30.6 % (25-40); Mean Corpuscular Hemoglobin 33.7 PG (26-34); Mean Corpuscular Volume 96.1 fL (80-100); Monocytes Absolute Auto 400 /uL (0-900); Monocytes Percent Auto 6.7 % (3-14); Neutrophils Absolute Auto 3600 /uL (1500-7000); Neutrophils Percent Auto 60.5 % (50-75); Platelet Count 382 X10^3/uL (150-400); Red Cell Distribution Width 13.5 % (11.6-14.8)
[2019-10-16 05:56] LABS: Alanine Aminotransferase 16 IU/L (<35); Albumin Globulin Ratio 1.2 (1.0-2.8); Alkaline Phosphatase 112 U/L (38-126); Aspartate Aminotransferase 25 IU/L (14-36); BUN Creatinine Ratio 37.7 (6-22); Bilirubin Total 0.3 mg/dL (0.2-1.3); Bilirubin Unconjugated 0.2 mg/dL (0.0-1.1); Blood Urea Nitrogen 20 mg/dL (7-17); Carbon Dioxide 21 mmol/L (22-32); Chloride 110 mmol/L (98-107); Estimated Glomerular Filt Rate > 60.0 mL/min (>60); Globulin 2.6 g/dL (1.7-4.1); Glucose 111 mg/dL (70-100); HEMOLYSIS < 15 (0-50); Magnesium 1.9 mg/dL (1.6-2.3); Potassium 3.7 mmol/L (3.4-5.1); Sodium 137 mmol/L (137-145); Total Protein 5.6 g/dL (6.3-8.2)
[2019-10-16] MEDS: PANTOPRAZOLE 20 MG TABLET PO (06:42)
--- NOTE | 2019-10-16 08:11 | PM.DS.1 ---
History of Present Illness History of Present Illness Date Patient Seen: 10/16/19 Time Patient Seen: 08:11 Chief complaint: nausea/dm/2 wks ago staph inf./dehyd. Narrative: Ms. Sarabjit Jimenes is a 28-year-old female patient with a history significant for type 1 diabetes with frequent , migraines, irregular menstruation and prior pyelolithiasis and diabetic cystopathy who presents to the ER with complaints of feeling dehydrated, nausea. She was recently admitted for DKA two weeks ago, prior to that she had been several months without DKA. She was sent home on oral antibiotics and her scalp lesions seemingly were improved, not causing her any pain. She had not followed up with primary care or endocrinology since her last admission. Since then she has complained of soft, potentially loose stools but never watery or too frequent. She denies any recent chest pain, shortness of breath, cough, fever, chills, abdominal pain, flank pain, dysuria, urinary frequency, or vaginal discharge. She denies any known exposure to COVID-19, and has been socially isolating due to her diabetes. She has a very brittle type 1 diabetic frequent admissions for DKA, however the last admission was approximately 7 months ago. She does not recall her most recent A1c. On arrival in the emergency room, patient appeared dehydrated, tachycardic. She was given 2L fluid bolus. Initial labs were drawn which showed a leukocytosis of 11.2, platelet of 635. Blood gas showed a pH of 7.13, bicarb of 6. Chemistries showed a sodium of 132, chloride of 92, CO2 of less than 5. Creatinine was 0.96 up from her baseline around 0.5. Anion gap was greater than 35 given CO2 of less than 5 on BMP. Glucose was 762. Ketones were positive. Alk-phos was mildly elevated at 248 but other chemistries are unremarkable. Procalcitonin was negative at less than 0.05. UA is was performed which showed glucose and ketones, there were no rbc's and only 1-5 wbc's with 1-5 squamous cells per high-power field. Specimen was sent for culture. COVID-19 testing performed in the ER was negative. EKG showed a sinus tachycardia without evidence of active ischemia. She did have a more fluctuant lesion on the top of her head, which the ED performed an I&D on, and cultures were sent. Cultures from previous admission of her scalp lesion grew MSSA. Patient was admitted to the ICU for DKA. Discharge Providers Provider Date of admission: 10/14/19 17:12 Discharge Date: 10/16/19 Consults: 10/14/19 18:53 Consult to Dietitian, Adult Routine Comment: Reason For Exam: assessed at high risk, type 1 DM w/ frequent DKA Discharge provider: Julio Cesar Weinberg DO Summary Hospital Course Discharge Diagnosis: Please see hospital course by problem list noted below. Hospital Course: Ms. Sarabjit Jimenes is a 28-year-old female patient with a history significant for type 1 diabetes, migraines, irregular menstruation and prior pyelolithiasis who presented to the ER with complaints of feeling dehydrated and painful lesions on her head. She was admitted for DKA and was discharged once her acidosis improved and sugars were stable on subcutaneous insulin. 1. Type 1 diabetes with diabetic ketoacidosis, acute, present on admission -patient with presenting VBG of pH 7.13, and a bicarb of 6. AG is >35. Serum bicarb is noted to be less than 5. Admission glucose 762 with elevated ketones. -patient was given 2 L of fluid bolus in the emergency room and started on insulin infusion. She was continued on fluid resuscitation until adequately hydrated. -continued insulin gtt until glucose improved, AG had closed, and bicarb is increased above 15. -initial potassium 4.9, ultimately required a significant amount of repletion in DKA. -No telemetry events and was discontinued day prior to discharge. -source is not entirely clear at this time. Urine culture pending. No current respiratory symptoms. Patient does again have her scalp lesions which required I&D in the ER. Repeat culture showed skin angelica. Blood cultures were negative. No diarrhea here since admission cancelled stool panel. - A1c >14%, she advocates taking her insulin as prescribed. When she is hospitalized, her blood sugars on home regimen are frequently well controlled. Suspect some non-compliance or dietary issues at home, but patient denies. 2. scalp folliculitis, acute, present on admission - will repeat oral cefdinir x5 additional days. Refer to general surgery as may have cystic component and may require excision as an outpatient for full resolution. However she should likely improve her glucose control given A1c of >14% this admission. - wound culture obtained prior to antibiotics, but showed normal skin angelica. 3. History of neurogenic bladder - no current symptomatology - UA with 1-5 WBC but also 1-5 squamous cells. Culture was negative. On ceftriaxone initially and discharge on cefdinir but this does not likely represent an infection. - continue timed voids every 4 hours while awake. Dispo: discharged home. Time Spent with Patient Time spent: Greater than 30 minutes Exam Vital Signs (past 8 hours): - 10/16/19 05:00 Temperature 98.1 F Pulse Rate 89 Respiratory Rate 16 Blood Pressure 108/69 Pulse Oximetry 100 Oxygen Delivery Method Room Air Oxygen Flow Rate 0 Narrative Exam Narrative: GENERAL APPEARANCE: young female, thin, fatigued, in no acute distress. Slightly pale. SKIN: Inspection of the skin reveals open lesion on her forehead with no surrounding erythema and smaller than previous, other more posterior lesion with mild surrounding induration but no erythema. Small area scabbed over. Nontender. HEENT: Normocephalic atraumatic, scalp lesions as noted above. Extraocular muscles are intact, oropharynx is clear and mucous membranes are very dry, neck is supple without adenopathy NECK: Supple and symmetric. There was no thyroid enlargement, and no tenderness, or masses were felt. CHEST: Normal AP diameter and normal contour without any kyphoscoliosis. LUNGS: Auscultation of the lungs revealed no wheezes, rhonchi, or rales. CARDIOVASCULAR: There was a tachycardic rate and regular rhythm without any murmurs, gallops, rubs. Peripheral pulses were 2+ and symmetric. ABDOMEN: Soft and nontender with normal bowel sounds. No ascites was noted. No flank tenderness. MUSCULOSKELETAL: There was no tenderness or effusions noted. Muscle strength and tone were normal. EXTREMITIES: No cyanosis, clubbing or edema. NEUROLOGIC: Alert and oriented x 3. Normal affect. Strength is +5/5 in the Upper Extremities and Lower Extremities Bilaterally. Sensation to touch was normal. Objective Labs Result Diagrams: 10/16/19 05:30 10/16/19 05:30 Labs: Laboratory Results - last 24 hr 10/15/19 10/16/19 10/16/19 11:20 05:30 05:30 WBC 6.0 RBC 3.50 L Hgb 11.8 L Hct 33.7 L MCV 96.1 MCH 33.7 MCHC 35.0 RDW 13.5 Plt Count 382 Neut % (Auto) 60.5 Lymph % (Auto) 30.6 [place] % (Auto) 6.7 Eos % (Auto) 1.6 L Baso % (Auto) 0.6 Neut # (Auto) 3600 Lymph # (Auto) 1800 [place] # (Auto) 400 Eos # (Auto) 100 Baso # (Auto) 0 Sodium 138 137 Potassium 3.5 3.7 Chloride 115 H 110 H Carbon Dioxide 18 L 21 L BUN 13 20 H Creatinine 0.49 L 0.53 Estimated GFR > 60.0 > 60.0 BUN/Creatinine Ratio 26.5 H 37.7 H Glucose 94 111 H Calcium 8.3 L 9.0 Magnesium 1.9 Total Bilirubin 0.3 Conjugated Bilirubin 0.0 Unconjugated Bilirubin 0.2 AST 25 ALT 16 Alkaline Phosphatase 112 Total Protein 5.6 L Albumin 3.0 L Globulin 2.6 Albumin/Globulin Ratio 1.2 Discharge Plan Discharge Plan Patient Disposition: Home Discharge comment: You were admitted to the hospital with DKA. You improved with insulin infusion and were discharged home. You will receive another 5 days of antibiotics at home. Please complete the course. 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 Discharge orders & Medications Prescriptions: New cefdinir 300 mg capsule 300 mg PO BID 5 Days Qty: 10 RF: 0 Continued glucose 4 gram tablet,chewable 4 gram PO Q15M PRN (Reason: hypoglycemia) Qty: 30 RF: 0 Glucagon Emergency Kit (human) 1 mg recon soln 1 mg subcut DIRECTED RF: 0 Tresiba FlexTouch U-100 100 unit/mL (3 mL) insulin pen 40 unit SUBCUT DAILY RF: 0 insulin lispro [Humalog KwikPen Insulin] 100 unit/mL insulin pen See Rx Instructions .ROUTE .COMPLEX Qty: 0 RF: 0 Follow up/Referrals: Jimmy Anderson MD [Physician] - 1 Month (recurrent scalp cyst, may need excision. Uncontrolled DM1. ) Discharge Health Status Health Concerns: DKA Multidrug resistant organism: No MDRO Diet/Activity/Treatments Diet: Diet as Tolerated and Carb-consistent/Diabetic Diet comment: As tolerated Visit Report/Discharge Packet Visit Report Forms: Patient Portal/API, Stroke Signs & Symptoms Discharges patient from system. Discharge Date/Time: 10/16/19 09:40 Quality VTE Deep Vein Thrombosis/Pulmonary Embolism Present on Admission: No
[2019-10-16] MEDS: INSULIN DEGLUDEC 40 UNIT 40 EACH SUBCUT (09:24)
[2019-10-16] MEDS: INSULIN ASPART 100 UNIT/ML INSULN PEN SUBCUT (09:25)
--- NOTE | 2019-10-16 09:59 | PC.NURSE ---
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
== END 2019-10-16 09:40 | disposition home or self-care (01) | DRG 639 ==
LOC: ED 14:22 → AC 17:13 → ICU 10-15 11:11 → AC 10-28 11:26 → ICU 10-28 11:26
PROVIDERS: Nurse Practitioner Adult Health; Admitting Provider Internal Medicine; Emergency Provider Emergency Medicine; Referring Provider Emergency Medicine; Visit Provider Internal Medicine
DX: E10.10 Type 1 diabetes mellitus with ketoacidosis without coma (principal); E11.69 Type 2 diabetes mellitus with other specified complication; E86.0 Dehydration; L73.8 Other specified follicular disorders; Z03.818 Encounter for observation for suspected exposure to other biological agents ruled out; Z79.4 Long term (current) use of insulin
CPT/HCPCS: 36415; 36592; 80048; 80053; 80076; 81001; 81025; 82009; 82805; 82962; 83036; 83605; 83735; 84100; 84145; 85025; 87040; 87070; 87075; 87077; 87086; 87147; 87186; 87205; 87635; 87797; 93005; 96361; 96365; 96366; 96368; 96375; 96376; 99284; J0696; J1170; J1642; J2405; J3480

== ENCOUNTER 2019-10-22 07:36 | Observation (INO) | payer OTHER, MEDICAID, SELFPAY ==
[2019-10-14 18:46] VITALS: BMI 18.4
[2019-10-22] VITALS (12 sets, daily range): BP systolic 107–138; BP diastolic 65–92; PULSE 86–102; RESP 9–18; TEMP 36.4–37.1; O2SAT 92–100; BMI 19.8
--- NOTE | 2019-10-22 | PATH_ITS ---
[facility] Accession Number: [id number] . 01 Material submitted: . scalp - SCALP MASS . 01 Clinical history: . GROWTH ON HEAD IS WORSE, PAIN, DOESN'T FEEL GOOD . 01 Diagnosis: Scalp, Excision: Fibrous tissue with extensive suppurative inflammation (abscess). Negative for neoplasia. [facility] 10/26/2019 1655 Local . 01 Electronically signed: . Jyo Jackson MD, Pathologist NPI- [id number] . 01 Gross description: . Specimen A is received in formalin, labeled with patient identification and scalp mass. It consists of a 1.5 x 1.0 x 0.7 cm soft tissue piece with attached skin. The skin is lilly-rothman without any grossly identified skin lesion. The deep surface is inked blue. Sectioning reveals homogeneously yellow-rothman and smooth cut surfaces deep to the white to brown skin layer. The entire specimen is submitted in four cassettes. . Summary of sections: A1 - tip #1, one piece. A2 - tip #2, one piece. A3-A4 - the remaining sections of the tissue from tip #1 to tip #2, two pieces in A3 and three pieces in A4. ([id number]) /MRV 10/23/2019 1344 Local . 01 Pathologist provided ICD-10: R22.9 . 01 CPT . 607875 Performed at: [address], [place], [place] [id number] MD Jesus William MD Phone: [phone]
--- NOTE | 2019-10-22 07:55 | ED_ITS ---
HPI - Wound/Laceration General Chief Complaint: Wound/Laceration Stated Complaint: growth on head is worse,pain,don't feel good Time Seen by Provider: 10/22/19 07:45 Source: patient Mode of arrival: Ambulatory History of Present Illness HPI narrative: Patient is a 29-year-old type 1 diabetic admitted to the ICU twice last month with reoccurring infection on the top of her scalp. It appears as though she has an abscess. She was sent to Dr. Anderson she was actually scheduled today for surgery however due to insurance reasons surgery is unable to take place and so she was sent to the ER. She has been NPO since 02/18 last night. She has not taken her diabetic medications. She remains quite tender on the top of her scalp Related Data Home Medications Medication Instructions Recorded Confirmed Glucagon Emergency Kit (human) 1 mg SUBCUT DIRECTED 02/16/19 10/21/19 Tresiba FlexTouch U-100 40 unit SUBCUT DAILY 09/30/19 10/21/19 Previous Rx's Medication Instructions Recorded glucose 4 gram PO Q15M PRN #30 tab 12/12/18 insulin lispro [Humalog KwikPen See Rx Instructions .ROUTE 03/10/19 Insulin] .COMPLEX #0 ml cefdinir 300 mg capsule 300 mg PO BID #14 cap 10/21/19 oxycodone 5 mg PO Q6H PRN #30 tab 10/22/19 Allergies Allergy/AdvReac Type Severity Reaction Status Date / Time abdalla [ABDALLA] Allergy Intermediate Hives, Verified 10/22/19 11:54 pruritus iodine [IODINE] Allergy Intermediate rash, itchy Verified 10/22/19 11:54 morphine Allergy Intermediate Difficulty Verified 10/22/19 11:54 Breathing shellfish derived Allergy Intermediate rash Verified 10/22/19 11:54 [SHELLFISH DERIVED] adhesive [ADHESIVE] Allergy Unknown tape Verified 10/22/19 11:54 latex [LATEX] Allergy Unknown Hives Verified 10/22/19 11:54 Review of Systems Review of Systems Narrative: GENERAL: Denies chills, fatigue, malaise, fever, sweats, travel HEENT: Denies sinus pain, ear pain, sore throat, difficulty swallowing, neck pain RESPIRATORY: Denies dyspnea, cough, wheezing, hemoptysis, sputum. CARDIOVASCULAR: Denies chest pain, palpitations, orthopnea, edema GASTROINTESTINAL: Denies nausea, vomiting, abdominal pain, diarrhea, constipation, melena. : Denies dysuria, frequency, incontinence, hematuria, urinary retention, flank pain. MUSCULOSKELETAL: Denies weakness, joint pain, or bony pain SKIN: See HPI NEUROLOGIC: Denies weakness, dizziness, headache, numbness, change in speech, confusion PSYCHIATRIC: No concerning psychosocial issues. 12 point review of systems is negative except for those stated above and HPI Patient History Medical History DKA (diabetic ketoacidoses) (Resolved) History of pyelonephritis (Resolved) Irregular menstrual cycle (Acute) Migraine headache (Chronic) Nephrolithiasis (Resolved) Type 1 diabetes mellitus (Chronic) Surgical History History of ureter stent (Resolved) Status post laser lithotripsy of ureteral calculus (Acute) [place] teeth extracted (Acute) Family History Father In good health Mother Cardiac disease Social History details: Engaged household members: significant other and family Smoking Status: Never smoker alcohol intake: current Smoking Status: Never smoker alcohol intake frequency: holidays/special occasions only Substance Use Type: does not use Exam Initial Vital Signs Initial Vital Signs: Vital Signs Temperature 98.7 F 10/22/19 07:43 Pulse Rate 99 H 10/22/19 07:43 Respiratory Rate 16 10/22/19 07:43 Blood Pressure 138/92 H 10/22/19 07:43 Pulse Oximetry 100 10/22/19 07:43 GENERAL: Tearful young female and in [no acute] distress. HEENT: Head atraumatic 3 cm x 3 cm fluctuation on top of scalp no gross pus or drainage exquisitely tender to all surrounding area CARDIOVASCULAR: Regular rate and rhythm without murmurs, rubs or gallops. RESPIRATORY: Breath sounds equal bilaterally, no wheezes rales or rhonchi. ABDOMEN: Soft, nontender. Normoactive bowel sounds all 4 quadrants. No guarding or rebound. EXTREMITIES: Normal range of motion, no clubbing or edema. Neurovascularly intact NEUROLOGICAL: Alert and oriented x4.Normal gait and speech. SKIN: Warm, dry, no laceration, no petechiae, no rashes or lesions. Course Orders Ordered: ED Orders 10/22/19 08:22 Basic Metabolic Panel Stat Complete Blood Count AUTO DIFF Stat Sodium Chloride (Normal Saline 0.9%) 1,000 mls @ 150 mls/hr IV CONT BLAISE Last Infusion: 10/22/19 11:54 Dose: 150 mls/hr Documented by: Admin: 10/22/19 09:34 Dose: 150 mls/hr Documented by: ESTEFANY INSULIN DRIP PREMIX (Myxredlin Drip Premix) 100 unit in 100 mls @ 6 mls/hr IV TITRATE BLAISE; Protocol Discontinued Medications Hydromorphone HCl (Dilaudid) 0.5 mg IV NOW ONE Stop: 10/22/19 07:58 Last Admin: 10/22/19 08:17 Dose: 0.5 mg Documented by: CANDE Hydromorphone HCl (Dilaudid) 0.5 mg IV NOW ONE Stop: 10/22/19 10:22 Last Admin: 10/22/19 10:28 Dose: 0.5 mg Documented by: ESTEFANY Cefazolin Sodium/Dextrose (Ancef) 2 gm in 100 mls @ 200 mls/hr IV NOW ONE Stop: 10/22/19 11:26 Last Infusion: 10/22/19 11:54 Dose: 0 mls/hr Documented by: Admin: 10/22/19 11:21 Dose: 200 mls/hr Documented by: ESTEFANY Vital Signs Vital signs: Vital Signs - 8 hr 10/22/19 07:43 10/22/19 09:30 Temperature 98.7 F Pulse Rate 99 H 91 H Respiratory Rate 16 Blood Pressure 138/92 H 121/77 Pulse Oximetry 100 97 MDM - Wound/Laceration Lab Data Attestation: I reviewed the patient's lab results. Result diagrams: 10/22/19 08:22 10/22/19 08:22 Labs: Lab Results 10/22/19 10/22/19 10/22/19 Range/Units 08:22 08:22 08:30 WBC 3.1 L (4.5-11.0) X10^3/uL RBC 4.20 (4.0-5.2) X10^6/uL Hgb 14.4 (12.0-16.0) g/dL Hct 40.0 (36-46) % MCV 95.2 (80-100) fL MCH 34.3 H (26-34) PG MCHC 36.1 H (30-36) % RDW 13.1 (11.6-14.8) % Plt Count 436 H (150-400) X10^3/uL Neut % (Auto) 35.3 L (50-75) % Lymph % (Auto) 46.9 H (25-40) % [place] % (Auto) 12.7 (3-14) % Eos % (Auto) 1.0 L (2-4) % Baso % (Auto) 4.1 H (0-2) % Neut # (Auto) 1100 L (7645-0918) /uL Lymph # (Auto) 1500 (9584-9015) /uL [place] # (Auto) 400 (0-900) /uL Eos # (Auto) 0 (0-450) /uL Baso # (Auto) 100 (0-100) /uL Sodium 137 (137-145) mmol/L Potassium 4.0 (3.4-5.1) mmol/L Chloride 96 L (98-107) mmol/L Carbon Dioxide 28 (22-32) mmol/L BUN 19 H (7-17) mg/dL Creatinine 0.54 (0.52-1.04) mg/dL Estimated GFR > 60.0 (>60) mL/min BUN/Creatinine Ratio 35.2 H (6-22) Glucose 433 H D (70-100) mg/dL Calcium 10.4 H (8.4-10.2) mg/dL COVID-19 PCR Negative (Negative) MDM Narrative Medical decision making narrative: Dr. Anderson is updated on patient he is in ED dizzy evaluate her patient will be going to the OR at around noon today. Glucose is elevated 430, bicarb is 19 previously was 20. IV fluids are started insulin is held due to surgery and NPO status Discharge Plan Departure Patient Disposition: Admitted to Surgery Clinical Impression: Abscess Discharge Date/Time: 10/22/19 11:55 Admit Date/Time: 10/22/19 09:56 Admit Provider: Jimmy Anderson
[2019-10-22] MEDS: HYDROMORPHONE 0.5 MG INJ IV ×2 (08:17→10:28)
[2019-10-22 08:34] LABS: Add Manual Diff / Slide Review NO; Basophils Absolute Auto 100 /uL (0-100); Basophils Percent Auto 4.1 % (0-2); Eosinophils Absolute Auto 0 /uL (0-450); Hemoglobin 14.4 g/dL (12.0-16.0); Lymphocytes Absolute Auto 1500 /uL (1100-4500); Lymphocytes Percent Auto 46.9 % (25-40); Mean Corpuscular HGB Conc 36.1 % (30-36); Mean Corpuscular Hemoglobin 34.3 PG (26-34); Mean Corpuscular Volume 95.2 fL (80-100); Monocytes Absolute Auto 400 /uL (0-900); Monocytes Percent Auto 12.7 % (3-14); Neutrophils Absolute Auto 1100 /uL (1500-7000); Neutrophils Percent Auto 35.3 % (50-75); Platelet Count 436 X10^3/uL (150-400); Red Cell Distribution Width 13.1 % (11.6-14.8); White Blood Cell Count 3.1 X10^3/uL (4.5-11.0)
[2019-10-22 08:46] LABS: BUN Creatinine Ratio 35.2 (6-22); Blood Urea Nitrogen 19 mg/dL (7-17); Calcium 10.4 mg/dL (8.4-10.2); Carbon Dioxide 28 mmol/L (22-32); Chloride 96 mmol/L (98-107); Estimated Glomerular Filt Rate > 60.0 mL/min (>60); Glucose 433 mg/dL (70-100); HEMOLYSIS < 15 (0-50); Sodium 137 mmol/L (137-145)
[2019-10-22] MEDS: SODIUM CHLORIDE 0.9% 1,000 ML 150 ML IV ×2 (09:34→12:17)
[2019-10-22 09:39] LABS: COVID19 -Nasal RAPID Negative (Negative)
--- NOTE | 2019-10-22 10:56 | PM.PREOP ---
Pre-operative Note COVID-19 COVID-19 status: Negative Result date/Date tested (Pos, Neg/Pending): 10/22/19 Interval Note History & Physical reviewed/Exam performed by Physician: Yes Changes to H&P: No
[2019-10-22] MEDS: CEFAZOLIN 2 GM/100 ML FROZ.PIGGY IV (11:21)
[2019-10-22] MEDS: INSULIN DRIP PREMIX 100 UNIT/100 ML PLAST..BAG IV (12:10)
--- NOTE | 2019-10-22 12:28 | SUR.HOLD ---
Addendum entered by Selina Rhodes R.N. 10/22/19 14:37: Blood sugar in phase [address] Lynn updated and made aware of what patient has eaten since insulin was turned off. Dr. Lynn came and discussed this with patient who states it is not abnormal to be in the 300's for her and that she will go home and treat herself as usual. Physician states that patient may discharge with this plan. Patient's mother also aware of blood sugar. Addendum entered by Selina Rhodes R.N. 10/22/19 13:44: Patient admitted to pacu. Blood glucose 296. Insulin continues at 4 units/hr. Dr. Lynn gave verbal order to D/C insulin when patient is able to eat. Patient began eating in PACU and insulin turned off. Original Note: Patient picked up from ED and brought to preop in wheelchair with mother and all belongings. Blood glucose stated to be [address] Lynn notified and stated that he ordered an insulin drip to start on algorithm one. Stated that we may start insulin gtt in preop. Rechecked blood glucose in preop and noted to be 331. Insulin gtt algorithm states to run insulin at 4units/hr. Insulin set up and double checked per protocol. Started at 4 units/hr with anesthesiologist present.
--- NOTE | 2019-10-22 12:47 | SUR.OPER ---
Supine on padded OR bed, head on pillow, arm padded and tucked at side, legs uncrossed, safety belt at thigh, tape over blanket over lower legs .
[2019-10-22] MEDS: BUPIVACAINE 0.25% W/ EPI 30 ML VIAL INJ (12:50)
--- NOTE | 2019-10-22 13:25 | PM.OP.1 ---
Operative Date/Time/Diagnoses Date of procedure: 10/22/19 Time of procedure: 13:25 Pre-op diagnosis: scalp mass Post-op diagnosis: same Procedure & Clinicians Procedure: excision of scalp mass Same procedure as scheduled: Yes Indications: 29 F with type 1 diabetes A1C 15 presents with a recurrent scalp infection leading to 2 icu hospitalizations for DKA over the past 30 days. Surgeon: Jimmy Anderson Anesthesia Type: General Operative Notes Findings: scalp cyst Specimen(s): other (scalp mass) Procedure in detail: Patient brought to the operating room placed supine on table. She received 3.375 g Zosyn prior to skin incision. General anesthesia was induced she was intubated with an LMA. She was prepped and draped sterile fashion. Time-out was performed. Ends skin was infiltrated with 0.25% bupivacaine. Incision was made over the scalp mass. Subcutaneous tissues were dissected and skin flaps were raised in either direction. The scalp mass was encountered its appearance was consistent with an infected cyst approximately 3cm. It was dissected out circumferentially. It was passed off the field as specimen. Wound was irrigated hemostasis was achieved. One piece of Surgicel was placed into the wound base. The skin was then closed in a running fashion with 3 0 nylon suture. Patient extubated and transferred to recovery room in stable condition. Complications: none Post-operative Condition: stable Disposition: same day surgery
[2019-10-22] MEDS: fentaNYL 100 MCG/2 ML INJ IV ×2 (13:31→13:35)
[2019-10-22] MEDS: OXYCODONE/ACETAMINOPHEN 5/325 TABLET 1 TAB PO (13:39)
== END 2019-10-22 14:35 | disposition home or self-care (01) ==
LOC: ED 08:16 → AC 09:57
PROVIDERS: Admitting Provider Surgery; Emergency Provider Emergency Medicine; Referring Provider Emergency Medicine; Visit Provider Surgery
PROC: (CPT 21012; principal; 2019-10-22 12:00)
DX: L02.811 Cutaneous abscess of head [any part, except face] (principal); Z11.59 Encounter for screening for other viral diseases; E10.9 Type 1 diabetes mellitus without complications; Z79.4 Long term (current) use of insulin
CPT/HCPCS: 21012; 36415; 80048; 82962; 85025; 87635; 96365; 96375; 96376; 99284; G0378; J0690; J1170; J3010

== ENCOUNTER 2019-10-28 15:55 | Inpatient (IN) | payer OTHER, MEDICAID, SELFPAY ==
[2019-10-27 08:56] VITALS: BMI 18.4
[2019-10-28] VITALS (17 sets, daily range): BP systolic 90–110; BP diastolic 50–71; PULSE 114–133; RESP 9–26; TEMP 36.4–37.2; O2SAT 95–100; BMI 19.6
--- NOTE | 2019-10-28 16:10 | ED_ITS ---
HPI - Skin/Abscess/Foreign Bdy <Emilie SHARYN Coates - Last Filed: 10/28/19 19:03> General Chief complaint: Skin/Abscess/Foreign Body Stated complaint: surgery on top of head thinks infected Time Seen by Provider: 10/28/19 16:01 Source: patient Mode of arrival: Ambulatory History of Present Illness HPI narrative: 29yo female with a history of DMI who is well-known to the emergency department for DKA, presents to the emergency department for and increasing pain and swelling to the top of her head. On 10/22/2019 she was admitted for DKA in a cyst to the top of her head, the cyst was surgically removed by Dr. Anderson, sutures were to be removed in another week. However, over the past few days she has noticed increasing pain and swelling, today she noticed all over body pain and feels like she is in DKA. Patient denies any vomiting, stomach pain, pain with urination, chest pain, shortness of breath, dizziness, syncope, or any other concerns. Patient states she gives herself shots, denies using an insulin pump. Patient states she last checked her blood sugar approximately a day ago and it was elevated, she does not recall the exact number. Related Data Home Medications Medication Instructions Recorded Confirmed Glucagon Emergency Kit (human) 1 mg SUBCUT DIRECTED 02/16/19 10/29/19 Tresiba FlexTouch U-100 40 unit SUBCUT DAILY 09/30/19 10/29/19 Previous Rx's Medication Instructions Recorded glucose 4 gram PO Q15M PRN #30 tab 12/12/18 insulin lispro [Humalog KwikPen See Rx Instructions .ROUTE 03/10/19 Insulin] .COMPLEX #0 ml cefdinir 300 mg capsule 300 mg PO BID #14 cap 10/21/19 oxycodone 5 mg PO Q6H PRN #30 tab 10/22/19 Allergies Allergy/AdvReac Type Severity Reaction Status Date / Time abdalla [ABDALLA] Allergy Intermediate Hives, Verified 10/22/19 11:54 pruritus iodine [IODINE] Allergy Intermediate rash, itchy Verified 10/22/19 11:54 morphine Allergy Intermediate Difficulty Verified 10/22/19 11:54 Breathing shellfish derived Allergy Intermediate rash Verified 10/22/19 11:54 [SHELLFISH DERIVED] adhesive [ADHESIVE] Allergy Unknown tape Verified 10/22/19 11:54 latex [LATEX] Allergy Unknown Hives Verified 10/22/19 11:54 Review of Systems <SHARYN Hogan - Last Filed: 10/28/19 19:03> Review of Systems Narrative: REVIEW OF SYSTEMS: GENERAL: Denies fever or chills. HENT: No head trauma, reports increasing pain and tenderness of the cyst on the top of her head. EYES: No loss of vision, double vision, eye pain, or irritation. CARDIOVASCULAR: No chest pain or syncope. RESPIRATORY: No shortness of breath or cough. GASTROINTESTINAL: No nausea, vomiting, diarrhea, or constipation. GENITOURINARY: No flank pain or dysuria. MUSCULOSKELETAL: Reports all over body pain, see HPI. INTEGUMENTARY: No rash, lesions, or pruritus. NEURO: No numbness, tingling, memory loss, or confusion. PSYCH: No behavior or mood changes. Patient History <SHARYN Hogan - Last Filed: 10/28/19 19:03> Medical History DKA (diabetic ketoacidoses) (Resolved) History of pyelonephritis (Resolved) Irregular menstrual cycle (Acute) Migraine headache (Chronic) Nephrolithiasis (Resolved) Type 1 diabetes mellitus (Chronic) Surgical History History of ureter stent (Resolved) Hx of local excision of skin lesion (Acute) Status post laser lithotripsy of ureteral calculus (Acute) [place] teeth extracted (Acute) Family History Father In good health Mother Cardiac disease Social History details: Engaged household members: significant other and family Smoking Status: Never smoker alcohol intake: current Smoking Status: Never smoker alcohol intake frequency: holidays/special occasions only Substance Use Type: does not use Exam <SHARYN Hogan - Last Filed: 10/28/19 19:03> Initial Vital Signs Initial Vital Signs: Vital Signs Temperature 99.0 F 10/28/19 16:01 Pulse Rate 133 H 10/28/19 16:01 Respiratory Rate 24 10/28/19 16:01 Blood Pressure 110/71 10/28/19 16:01 Pulse Oximetry 99 10/28/19 16:01 PHYSICAL EXAMINATION: GENERAL: Well groomed, alert, and cooperative. Answers questions promptly and appropriately. Vital signs noted. HENT: Normocephalic, atraumatic. A elevated, erythematous, raised area of fluctuance approximately 8cm diameter noted to the top of the scalp. Significant tenderness with palpation. EYES: Conjunctiva pink, sclera white, no periorbital swelling. CHEST: Normal to inspection and without deformities. CARDIOVASCULAR: S1 and S2 sounds normal. Tachycardia, regular rhythm, no murmurs, clicks, or bruits. No pedal edema. RESPIRATORY: Normal respiratory rate, trachea midline, airway patent. No stridor, nasal flaring or accessory muscle use. Lungs are clear in all [place] without wheeze, rhonchi, or crackles. GASTROINTESTINAL: Bowel sounds normoactive. Abdomen is soft and non-tender. No organomegaly. MUSCULOSKELETAL: Normal gait and coordination. Equal tone and mass bilaterally. EXTREMITIES: CMS intact. Moves all extremities. SKIN: Warm, dry, soft, appropriate color for ethnicity. No lesions, rashes, or wounds. NEURO: Alert and Oriented X 3. Good coordination. No ataxia, or sensory deficits, or cognitive issues. PSYCH: Appropriate affect and mood. <Teddy Yap DO - Last Filed: 10/30/19 09:10> Initial Vital Signs Initial Vital Signs: Vital Signs Temperature 99.0 F 10/28/19 16:01 Pulse Rate 133 H 10/28/19 16:01 Respiratory Rate 24 10/28/19 16:01 Blood Pressure 110/71 10/28/19 16:01 Pulse Oximetry 99 10/28/19 16:01 Course <SHARYN Hogan - Last Filed: 10/28/19 19:03> Course Course Narrative: 1610: Dr. Yap at bedside to evaluate cyst as well. 1620: Dr. Yap spoke with Dr. Anderson about patient's cyst, Dr. Anderson will evaluate in the ED 1730: Potassium within normal limits, insulin drip was started at this time. Second bolus of fluid was initiated, maintenance fluids also ordered for use with Insulin drip. 1759: Dr. Vargas accepts patient for admission to ICU for DKA, discussed labs, ordered phosphorus and magnesium per request. Orders Ordered: Acetaminophen (Tylenol) 650 mg PO Q6HR [facility] Last Admin: 10/30/19 06:05 Dose: 650 mg Documented by: Admin: 10/29/19 23:30 Dose: 650 mg Documented by: Admin: 10/29/19 17:05 Dose: 650 mg Documented by: ESPERANZA Al Hydrox/Mg Hydrox/Simethicone (Maalox Plus) 30 ml PO Q6HR PRN PRN Reason: Dyspepsia Amoxicillin/Clavulanate Potassium (Augmentin 875-125 Mg) 1 tab PO BID [facility] Last Admin: 10/30/19 09:05 Dose: 1 tab Documented by: Admin: 10/29/19 21:15 Dose: 1 tab Documented by: Admin: 10/29/19 13:37 Dose: 1 tab Documented by: JESSICA Bisacodyl (Dulcolax) 10 mg ID DAILY PRN PRN Reason: Constipation Calcium Carbonate (Tums) 1,000 mg PO Q4HR PRN PRN Reason: Dyspepsia Dextrose (D50w) 25 gm IV PRN PRN PRN Reason: Hypoglycemia Diphenhydramine HCl (Benadryl) 25 mg IV Q4HR PRN PRN Reason: Itching Last Admin: 10/30/19 09:01 Dose: 25 mg Documented by: Admin: 10/30/19 06:10 Dose: 25 mg Documented by: Admin: 10/30/19 00:10 Dose: 25 mg Documented by: Admin: 10/29/19 08:00 Dose: 25 mg Documented by: Admin: 10/29/19 00:47 Dose: 25 mg Documented by: ESPERANZA Enoxaparin Sodium (Lovenox) 40 mg SUBCUT DAILY [facility] Last Admin: 10/29/19 09:59 Dose: Not Given Documented by: JESSICA Insulin Aspart (Novolog Flexpen) 0 unit SUBCUT ACHS [facility]; Protocol Last Admin: 10/30/19 08:58 Dose: 2 unit Documented by: NAYAN Cosigned by: JESSICA Admin: 10/29/19 21:15 Dose: 2 unit Documented by: ESPERANZA Cosigned by: AWALKER Admin: 10/29/19 17:04 Dose: 5 unit Documented by: ESPERANZA Cosigned by: AMANDA Admin: 10/29/19 12:21 Dose: Not Given Documented by: JESSICA Insulin Aspart (Novolog Flexpen) 7 unit SUBCUT AC [facility] Last Admin: 10/30/19 08:57 Dose: 7 unit Documented by: NAYAN Cosigned by: JESSICA Admin: 10/29/19 17:05 Dose: 7 unit Documented by: ESPERANZA Cosigned by: AMANDA Magnesium Hydroxide (Milk Of Magnesia) 30 ml PO DAILY PRN PRN Reason: Constipation Naloxone HCl (Narcan) 0.2 mg IV Q2MIN PRN PRN Reason: Opiate Reversal Non-Formulary Medication (Insulin Degludec [Tresiba Flextouch U-100]) 50 unit SUBCUT DAILY [facility] Last Admin: 10/30/19 09:09 Dose: 50 unit Documented by: NAYAN Ondansetron HCl (Zofran) 4 mg IV Q4HR PRN PRN Reason: Nausea And Vomiting Oxycodone HCl (Percolone) 5 mg PO Q4HR PRN PRN Reason: Pain, Moderate (4-6) Last Admin: 10/30/19 06:10 Dose: 5 mg Documented by: JUSTINO Oxycodone HCl (Percolone) 10 mg PO Q4HR PRN PRN Reason: Pain, Severe (7-10) Last Admin: 10/29/19 23:30 Dose: 10 mg Documented by: Admin: 10/29/19 14:47 Dose: 10 mg Documented by: JESSICA Discontinued Medications Acetaminophen (Tylenol) 650 mg PO Q4HR PRN PRN Reason: Fever/Mild Pain (1-3) Hydrocodone Bitart/Acetaminophen ([place] 5/325) 1 tab PO Q4HR PRN PRN Reason: Pain, Moderate (4-6) Dextrose (D50w) 25 gm IV PRN PRN; Protocol PRN Reason: Hypoglycemia Hydromorphone HCl (Dilaudid) 1 mg IM NOW ONE Stop: 10/28/19 16:24 Last Admin: 10/28/19 16:34 Dose: 1 mg Documented by: SCOTTY Hydromorphone HCl (Dilaudid) 0.5 mg IV NOW ONE Stop: 10/28/19 17:31 Last Admin: 10/28/19 17:28 Dose: 0.5 mg Documented by: SCOTTY Hydromorphone HCl (Dilaudid) 1 mg IV Q4H PRN PRN Reason: Pain, Severe (7-10) Last Admin: 10/29/19 09:35 Dose: 1 mg Documented by: Admin: 10/29/19 05:14 Dose: 1 mg Documented by: Admin: 10/28/19 19:59 Dose: 1 mg Documented by: ESPERANZA Sodium Chloride (Normal Saline 0.9%) 1,000 mls @ 1,000 mls/hr IV BOLUS ONE Stop: 10/28/19 17:08 Last Infusion: 10/28/19 18:09 Dose: 0 mls/hr Documented by: Admin: 10/28/19 16:50 Dose: 1,000 mls/hr Documented by: SCOTTY INSULIN DRIP PREMIX (Myxredlin Drip Premix) 100 unit in 100 mls @ 6 mls/hr IV TITRATE [facility]; Protocol Last Titration: 10/28/19 19:01 Dose: 0 mls/hr, 0 mls/hr Documented by: SCOTTY Cosigned by: KASSANDRA Admin: 10/28/19 18:02 Dose: 6 mls/hr, 6 mls/hr Documented by: SCOTTY Cosigned by: KASSANDRA Sodium Chloride (Normal Saline 0.9%) 1,000 mls @ 1,000 mls/hr IV BOLUS ONE Stop: 10/28/19 18:35 Last Admin: 10/28/19 18:58 Dose: Not Given Documented by: SCOTTY Sodium Chloride (Normal Saline 0.9%) 1,000 mls @ 100 mls/hr IV BOLUS ONE Stop: 10/29/19 03:35 Last Infusion: 10/29/19 07:52 Dose: 0 mls/hr Documented by: Infusion: 10/28/19 19:00 Dose: 0 mls/hr Documented by: Admin: 10/28/19 17:48 Dose: 100 mls/hr Documented by: SCOTTY Sodium Chloride (Normal Saline 0.9%) 1,000 mls @ 500 mls/hr IV BOLUS ONE Stop: 10/28/19 20:28 Last Infusion: 10/29/19 07:52 Dose: 0 mls/hr Documented by: Admin: 10/28/19 19:36 Dose: 500 mls/hr Documented by: ESPERANZA Sodium Chloride (Normal Saline 0.45%) 1,000 mls @ 150 mls/hr IV CONT [facility] Last Infusion: 10/29/19 08:25 Dose: 0 mls/hr Documented by: Infusion: 10/28/19 23:46 Dose: 0 mls/hr Documented by: Admin: 10/28/19 20:42 Dose: 150 mls/hr Documented by: ESPERANZA Dextrose/Sodium Chloride (Dextrose 5%-0.45% Ns) 1,000 mls @ 150 mls/hr IV CONT [facility] Last Infusion: 10/29/19 08:26 Dose: 0 mls/hr Documented by: Infusion: 10/29/19 02:55 Dose: 0 mls/hr Documented by: Admin: 10/28/19 22:42 Dose: 70.7 mls/hr Documented by: Admin: 10/28/19 19:34 Dose: Not Given Documented by: ESPERANZA INSULIN DRIP PREMIX (Myxredlin Drip Premix) 100 unit in 100 mls @ 6 mls/hr IV TITRATE [facility]; Protocol Last Titration: 10/29/19 10:00 Dose: 0 mls/hr Documented by: JESSICA Cosigned by: ERIK Titration: 10/29/19 07:51 Dose: 2.4 mls/hr Documented by: JESSICA Cosigned by: ANURAGHOCLARISSE Titration: 10/29/19 04:01 Dose: 0.9 mls/hr Documented by: NAYAN Cosigned by: POLI Titration: 10/29/19 03:35 Dose: 0 mls/hr Documented by: NAYAN Cosigned by: POLI Titration: 10/29/19 02:54 Dose: 0.9 mls/hr Documented by: ESPERANZA Cosigned by: POLI Titration: 10/29/19 01:40 Dose: 2.4 mls/hr Documented by: ESPERANZA Cosigned by: SSARDEL Titration: 10/28/19 22:38 Dose: 4.7 mls/hr Documented by: ESPERANZA Cosigned by: DYLLAN Titration: 10/28/19 20:36 Dose: 11.8 mls/hr Documented by: ESPERANZA Cosigned by: MASON Titration: 10/28/19 19:35 Dose: 7.1 mls/hr Documented by: ESPERANZA Cosigned by: MASON Admin: 10/28/19 18:45 Dose: 6 mls/hr Documented by: ESPERANZA Cosigned by: MASON Sodium Chloride (Normal Saline 0.9%) 1,000 mls @ 1,000 mls/hr IV BOLUS ONE Stop: 10/28/19 20:31 Last Infusion: 10/29/19 07:52 Dose: 0 mls/hr Documented by: Admin: 10/28/19 20:41 Dose: 1,000 mls/hr Documented by: ESPERANZA Ceftriaxone Sodium/Dextrose (Rocephin) 1 gm in 50 mls @ 100 mls/hr IV Q24H [facility] Last Infusion: 10/28/19 20:46 Dose: 0 mls/hr Documented by: Admin: 10/28/19 19:59 Dose: 100 mls/hr Documented by: ESPERANZA Dextrose (D10w) 1,000 mls @ 47.5 mls/hr IV NOW ONE Stop: 10/29/19 23:53 Last Infusion: 10/29/19 09:59 Dose: 0 mls/hr Documented by: Infusion: 10/29/19 08:00 Dose: 21 mls/hr Documented by: Admin: 10/29/19 02:51 Dose: 47.5 mls/hr Documented by: ESPERANZA Potassium Chloride 40 meq/ (Sodium Chloride) 520 mls @ 130 mls/hr IV NOW ONE Stop: 10/29/19 10:50 Last Infusion: 10/29/19 12:23 Dose: 0 mls/hr Documented by: JESSICA Cosigned by: ERIK Admin: 10/29/19 07:29 Dose: 130 mls/hr Documented by: JESSICA Cosigned by: ERIK Insulin Aspart (Novolog Flexpen) 5 unit SUBCUT AC [facility] Last Admin: 10/29/19 13:25 Dose: 5 unit Documented by: JESSICA Cosigned by: ERIK Insulin Glargine (Lantus Solostar (Pen)) 40 unit SUBCUT DAILY [facility] Last Admin: 10/29/19 07:49 Dose: Not Given Documented by: JESSICA Ketorolac Tromethamine (Toradol) 30 mg IV NOW ONE Stop: 10/28/19 16:19 Last Admin: 10/28/19 16:53 Dose: 30 mg Documented by: SCOTTY Khan (Insulin Degludec) 100units/Ml 40 unit SUBCUT NOW ONE Stop: 10/29/19 07:44 Last Admin: 10/29/19 08:02 Dose: 40 unit Documented by: JESSICA Non-Formulary Medication (Insulin Degludec [Tresiba Flextouch U-100]) 45 unit SUBCUT DAILY [facility] Ondansetron HCl (Zofran) 4 mg IV NOW ONE Stop: 10/28/19 16:19 Last Admin: 10/28/19 16:53 Dose: 4 mg Documented by: SCOTTY Consultations Consultation #1: Patient staffed with Dr. Yap, discussed test, test results, plan of care. VBG reivewed with Dr. Yap. Discussed ABG and IV insulin bolus, ABG not advised at this time as this will not change the plan of care. IV insulin bolus not advise as patient was started 1.5units/kg drip versus 1unit/kgdrip as per insulin protocol. Vital Signs Vital signs: Vital Signs - 8 hr 10/28/19 16:01 10/28/19 17:02 10/28/19 17:08 Temperature 99.0 F Pulse Rate 133 H 125 H 118 H Respiratory Rate 24 12 Blood Pressure 110/71 100/59 L Pulse Oximetry 99 97 10/28/19 17:10 10/28/19 17:15 10/28/19 17:30 Temperature Pulse Rate 121 H 120 H 119 H Respiratory Rate 26 H 17 20 Blood Pressure 100/59 L 106/63 98/56 L Pulse Oximetry 98 98 98 10/28/19 17:45 10/28/19 18:00 10/28/19 18:15 Temperature Pulse Rate 119 H 123 H 121 H Respiratory Rate 14 12 9 L Blood Pressure 93/54 L Pulse Oximetry 96 96 95 10/28/19 18:19 Temperature Pulse Rate 120 H Respiratory Rate 11 L Blood Pressure 91/50 L Pulse Oximetry 96 <Teddy Yap, DO - Last Filed: 10/30/19 09:10> Orders Ordered: Acetaminophen (Tylenol) 650 mg PO Q6HR [facility] Last Admin: 10/30/19 06:05 Dose: 650 mg Documented by: Admin: 10/29/19 23:30 Dose: 650 mg Documented by: Admin: 10/29/19 17:05 Dose: 650 mg Documented by: ESPERANZA Al Hydrox/Mg Hydrox/Simethicone (Maalox Plus) 30 ml PO Q6HR PRN PRN Reason: Dyspepsia Amoxicillin/Clavulanate Potassium (Augmentin 875-125 Mg) 1 tab PO BID [facility] Last Admin: 10/30/19 09:05 Dose: 1 tab Documented by: Admin: 10/29/19 21:15 Dose: 1 tab Documented by: Admin: 10/29/19 13:37 Dose: 1 tab Documented by: JESSICA Bisacodyl (Dulcolax) 10 mg ID DAILY PRN PRN Reason: Constipation Calcium Carbonate (Tums) 1,000 mg PO Q4HR PRN PRN Reason: Dyspepsia Dextrose (D50w) 25 gm IV PRN PRN PRN Reason: Hypoglycemia Diphenhydramine HCl (Benadryl) 25 mg IV Q4HR PRN PRN Reason: Itching Last Admin: 10/30/19 09:01 Dose: 25 mg Documented by: Admin: 10/30/19 06:10 Dose: 25 mg Documented by: Admin: 10/30/19 00:10 Dose: 25 mg Documented by: Admin: 10/29/19 08:00 Dose: 25 mg Documented by: Admin: 10/29/19 00:47 Dose: 25 mg Documented by: ESPERANZA Enoxaparin Sodium (Lovenox) 40 mg SUBCUT DAILY [facility] Last Admin: 10/29/19 09:59 Dose: Not Given Documented by: JESSCIA Insulin Aspart (Novolog Flexpen) 0 unit SUBCUT [facility]; Protocol Last Admin: 10/30/19 08:58 Dose: 2 unit Documented by: NAYAN Cosigned by: JESSICA Admin: 10/29/19 21:15 Dose: 2 unit Documented by: ESPERANZA Cosigned by: FELICIA Admin: 10/29/19 17:04 Dose: 5 unit Documented by: ESPERANZA Cosigned by: AMANDA Admin: 10/29/19 12:21 Dose: Not Given Documented by: JESSICA Insulin Aspart (Novolog Flexpen) 7 unit SUBCUT AC [facility] Last Admin: 10/30/19 08:57 Dose: 7 unit Documented by: NAYAN Cosigned by: JESSICA Admin: 10/29/19 17:05 Dose: 7 unit Documented by: ESPERANZA Cosigned by: AMANDA Magnesium Hydroxide (Milk Of Magnesia) 30 ml PO DAILY PRN PRN Reason: Constipation Naloxone HCl (Narcan) 0.2 mg IV Q2MIN PRN PRN Reason: Opiate Reversal Non-Formulary Medication (Insulin Degludec [Tresiba Flextouch U-100]) 50 unit SUBCUT DAILY [facility] Last Admin: 10/30/19 09:09 Dose: 50 unit Documented by: NAYAN Ondansetron HCl (Zofran) 4 mg IV Q4HR PRN PRN Reason: Nausea And Vomiting Oxycodone HCl (Percolone) 5 mg PO Q4HR PRN PRN Reason: Pain, Moderate (4-6) Last Admin: 10/30/19 06:10 Dose: 5 mg Documented by: JUSTINO Oxycodone HCl (Percolone) 10 mg PO Q4HR PRN PRN Reason: Pain, Severe (7-10) Last Admin: 10/29/19 23:30 Dose: 10 mg Documented by: Admin: 10/29/19 14:47 Dose: 10 mg Documented by: JESSICA Discontinued Medications Acetaminophen (Tylenol) 650 mg PO Q4HR PRN PRN Reason: Fever/Mild Pain (1-3) Hydrocodone Bitart/Acetaminophen ([place] 5/325) 1 tab PO Q4HR PRN PRN Reason: Pain, Moderate (4-6) Dextrose (D50w) 25 gm IV PRN PRN; Protocol PRN Reason: Hypoglycemia Hydromorphone HCl (Dilaudid) 1 mg IM NOW ONE Stop: 10/28/19 16:24 Last Admin: 10/28/19 16:34 Dose: 1 mg Documented by: SCOTTY Hydromorphone HCl (Dilaudid) 0.5 mg IV NOW ONE Stop: 10/28/19 17:31 Last Admin: 10/28/19 17:28 Dose: 0.5 mg Documented by: SCOTTY Hydromorphone HCl (Dilaudid) 1 mg IV Q4H PRN PRN Reason: Pain, Severe (7-10) Last Admin: 10/29/19 09:35 Dose: 1 mg Documented by: Admin: 10/29/19 05:14 Dose: 1 mg Documented by: Admin: 10/28/19 19:59 Dose: 1 mg Documented by: ESPERANZA Sodium Chloride (Normal Saline 0.9%) 1,000 mls @ 1,000 mls/hr IV BOLUS ONE Stop: 10/28/19 17:08 Last Infusion: 10/28/19 18:09 Dose: 0 mls/hr Documented by: Admin: 10/28/19 16:50 Dose: 1,000 mls/hr Documented by: SCOTTY INSULIN DRIP PREMIX (Myxredlin Drip Premix) 100 unit in 100 mls @ 6 mls/hr IV TITRATE [facility]; Protocol Last Titration: 10/28/19 19:01 Dose: 0 mls/hr, 0 mls/hr Documented by: SCOTTY Cosigned by: KASSANDRA Admin: 10/28/19 18:02 Dose: 6 mls/hr, 6 mls/hr Documented by: SCOTTY Cosigned by: KASSANDRA Sodium Chloride (Normal Saline 0.9%) 1,000 mls @ 1,000 mls/hr IV BOLUS ONE Stop: 10/28/19 18:35 Last Admin: 10/28/19 18:58 Dose: Not Given Documented by: SCOTTY Sodium Chloride (Normal Saline 0.9%) 1,000 mls @ 100 mls/hr IV BOLUS ONE Stop: 10/29/19 03:35 Last Infusion: 10/29/19 07:52 Dose: 0 mls/hr Documented by: Infusion: 10/28/19 19:00 Dose: 0 mls/hr Documented by: Admin: 10/28/19 17:48 Dose: 100 mls/hr Documented by: SCOTTY Sodium Chloride (Normal Saline 0.9%) 1,000 mls @ 500 mls/hr IV BOLUS ONE Stop: 10/28/19 20:28 Last Infusion: 10/29/19 07:52 Dose: 0 mls/hr Documented by: Admin: 10/28/19 19:36 Dose: 500 mls/hr Documented by: ESPERANZA Sodium Chloride (Normal Saline 0.45%) 1,000 mls @ 150 mls/hr IV CONT [facility] Last Infusion: 10/29/19 08:25 Dose: 0 mls/hr Documented by: Infusion: 10/28/19 23:46 Dose: 0 mls/hr Documented by: Admin: 10/28/19 20:42 Dose: 150 mls/hr Documented by: ESPERANZA Dextrose/Sodium Chloride (Dextrose 5%-0.45% Ns) 1,000 mls @ 150 mls/hr IV CONT [facility] Last Infusion: 10/29/19 08:26 Dose: 0 mls/hr Documented by: Infusion: 10/29/19 02:55 Dose: 0 mls/hr Documented by: Admin: 10/28/19 22:42 Dose: 70.7 mls/hr Documented by: Admin: 10/28/19 19:34 Dose: Not Given Documented by: ESPERANZA INSULIN DRIP PREMIX (Myxredlin Drip Premix) 100 unit in 100 mls @ 6 mls/hr IV TITRATE [facility]; Protocol Last Titration: 10/29/19 10:00 Dose: 0 mls/hr Documented by: JESSICA Cosigned by: ERIK Titration: 10/29/19 07:51 Dose: 2.4 mls/hr Documented by: JESSICA Cosigned by: ERIK Titration: 10/29/19 04:01 Dose: 0.9 mls/hr Documented by: NAYAN Cosigned by: POLI Titration: 10/29/19 03:35 Dose: 0 mls/hr Documented by: NAYAN Cosigned by: POLI Titration: 10/29/19 02:54 Dose: 0.9 mls/hr Documented by: ESPERANZA Cosigned by: POLI Titration: 10/29/19 01:40 Dose: 2.4 mls/hr Documented by: ESPERANZA Cosigned by: POLI Titration: 10/28/19 22:38 Dose: 4.7 mls/hr Documented by: ESPERANZA Cosigned by: DYLLAN Titration: 10/28/19 20:36 Dose: 11.8 mls/hr Documented by: ESPERANZA Cosigned by: MASON Titration: 10/28/19 19:35 Dose: 7.1 mls/hr Documented by: ESPERANZA Cosigned by: MASON Admin: 10/28/19 18:45 Dose: 6 mls/hr Documented by: ESPERANZA Cosigned by: MASON Sodium Chloride (Normal Saline 0.9%) 1,000 mls @ 1,000 mls/hr IV BOLUS ONE Stop: 10/28/19 20:31 Last Infusion: 10/29/19 07:52 Dose: 0 mls/hr Documented by: Admin: 10/28/19 20:41 Dose: 1,000 mls/hr Documented by: ESPERANZA Ceftriaxone Sodium/Dextrose (Rocephin) 1 gm in 50 mls @ 100 mls/hr IV Q24H [facility] Last Infusion: 10/28/19 20:46 Dose: 0 mls/hr Documented by: Admin: 10/28/19 19:59 Dose: 100 mls/hr Documented by: ESPERANZA Dextrose (D10w) 1,000 mls @ 47.5 mls/hr IV NOW ONE Stop: 10/29/19 23:53 Last Infusion: 10/29/19 09:59 Dose: 0 mls/hr Documented by: Infusion: 10/29/19 08:00 Dose: 21 mls/hr Documented by: Admin: 10/29/19 02:51 Dose: 47.5 mls/hr Documented by: ESPERANZA Potassium Chloride 40 meq/ (Sodium Chloride) 520 mls @ 130 mls/hr IV NOW ONE Stop: 10/29/19 10:50 Last Infusion: 10/29/19 12:23 Dose: 0 mls/hr Documented by: JESSICA Cosigned by: REIK Admin: 10/29/19 07:29 Dose: 130 mls/hr Documented by: JESSICA Cosigned by: ERIK Insulin Aspart (Novolog Flexpen) 5 unit SUBCUT AC [facility] Last Admin: 10/29/19 13:25 Dose: 5 unit Documented by: JESSICA Cosigned by: ERIK Insulin Glargine (Lantus Solostar (Pen)) 40 unit SUBCUT DAILY [facility] Last Admin: 10/29/19 07:49 Dose: Not Given Documented by: JESSICA Ketorolac Tromethamine (Toradol) 30 mg IV NOW ONE Stop: 10/28/19 16:19 Last Admin: 10/28/19 16:53 Dose: 30 mg Documented by: SCOTTY Segoviasiba (Insulin Degludec) 100units/Ml 40 unit SUBCUT NOW ONE Stop: 10/29/19 07:44 Last Admin: 10/29/19 08:02 Dose: 40 unit Documented by: JESSICA Non-Formulary Medication (Insulin Degludec [Tresiba Flextouch U-100]) 45 unit SUBCUT DAILY [facility] Ondansetron HCl (Zofran) 4 mg IV NOW ONE Stop: 10/28/19 16:19 Last Admin: 10/28/19 16:53 Dose: 4 mg Documented by: SCOTTY Vital Signs Vital signs: Vital Signs - 8 hr 10/28/19 16:01 10/28/19 17:02 10/28/19 17:08 Temperature 99.0 F Pulse Rate 133 H 125 H 118 H Respiratory Rate 24 12 Blood Pressure 110/71 100/59 L Pulse Oximetry 99 97 10/28/19 17:10 10/28/19 17:15 10/28/19 17:30 Temperature Pulse Rate 121 H 120 H 119 H Respiratory Rate 26 H 17 20 Blood Pressure 100/59 L 106/63 98/56 L Pulse Oximetry 98 98 98 10/28/19 17:45 10/28/19 18:00 10/28/19 18:15 Temperature Pulse Rate 119 H 123 H 121 H Respiratory Rate 14 12 9 L Blood Pressure 93/54 L Pulse Oximetry 96 96 95 10/28/19 18:19 Temperature Pulse Rate 120 H Respiratory Rate 11 L Blood Pressure 91/50 L Pulse Oximetry 96 MDM - Skin/Abscess/Foreign Bdy <SHARYN Hogan - Last Filed: 10/28/19 19:03> Medical Records Attestation: I reviewed the patient's medical records. Lab Data Attestation: I reviewed the patient's lab results. Result diagrams: 10/30/19 05:45 10/30/19 05:45 Labs: Lab Results 10/28/19 10/28/19 10/28/19 Range/Units 16:47 16:55 16:55 WBC 8.1 (4.5-11.0) X10^3/uL RBC 4.19 (4.0-5.2) X10^6/uL Hgb 14.2 (12.0-16.0) g/dL Hct 43.0 (36-46) % MCV 102.7 H D (80-100) fL MCH 34.0 (26-34) PG MCHC 33.1 (30-36) % RDW 13.4 (11.6-14.8) % Plt Count 411 H (150-400) X10^3/uL Neut % (Auto) 68.6 (50-75) % Lymph % (Auto) 23.6 L (25-40) % [place] % (Auto) 6.3 (3-14) % Eos % (Auto) 0.1 L (2-4) % Baso % (Auto) 1.4 (0-2) % Neut # (Auto) 5600 (3601-6786) /uL Lymph # (Auto) 1900 (9781-7748) /uL [place] # (Auto) 500 (0-900) /uL Eos # (Auto) 0 (0-450) /uL Baso # (Auto) 100 (0-100) /uL VBG pH 7.14 L* (7.33-7.43) VBG pCO2 18.9 L (45-50) mmHg VBG pO2 44 (35-45) mmHg VBG HCO3 7 L (23-28) mmol/L VBG Total CO2 7 L (24-29) mmol/L VBG O2 Saturation 68 L (70-75) % VBG Base Excess -22.0 L (0-4) mmol/L Sodium (137-145) mmol/L Potassium (3.4-5.1) mmol/L Chloride (98-107) mmol/L Carbon Dioxide (22-32) mmol/L BUN (7-17) mg/dL Creatinine (0.52-1.04) mg/dL Estimated GFR (>60) mL/min BUN/Creatinine Ratio (6-22) Glucose (70-100) mg/dL Lactate (0.7-2.1) mmol/L Calcium (8.4-10.2) mg/dL Phosphorus (2.5-4.5) mg/dL Magnesium (1.6-2.3) mg/dL Total Bilirubin (0.2-1.3) mg/dL AST (14-36) IU/L ALT (<35) IU/L Alkaline Phosphatase (38-126) U/L Total Protein (6.3-8.2) g/dL Albumin (3.5-5.0) g/dL Globulin (1.7-4.1) g/dL Albumin/Globulin Ratio (1.0-2.8) Procalcitonin 0.12 (<0.5) ng/mL Ketones (<0.27) mmol/L 10/28/19 10/28/19 10/28/19 Range/Units 16:55 16:55 16:55 WBC (4.5-11.0) X10^3/uL RBC (4.0-5.2) X10^6/uL Hgb (12.0-16.0) g/dL Hct (36-46) % MCV (80-100) fL MCH (26-34) PG MCHC (30-36) % RDW (11.6-14.8) % Plt Count (150-400) X10^3/uL Neut % (Auto) (50-75) % Lymph % (Auto) (25-40) % [place] % (Auto) (3-14) % Eos % (Auto) (2-4) % Baso % (Auto) (0-2) % Neut # (Auto) (8236-1962) /uL Lymph # (Auto) (5978-2049) /uL [place] # (Auto) (0-900) /uL Eos # (Auto) (0-450) /uL Baso # (Auto) (0-100) /uL VBG pH (7.33-7.43) VBG pCO2 (45-50) mmHg VBG pO2 (35-45) mmHg VBG HCO3 (23-28) mmol/L VBG Total CO2 (24-29) mmol/L VBG O2 Saturation (70-75) % VBG Base Excess (0-4) mmol/L Sodium 135 L (137-145) mmol/L Potassium 4.8 (3.4-5.1) mmol/L Chloride 94 L (98-107) mmol/L Carbon Dioxide < 5 L* (22-32) mmol/L BUN 21 H (7-17) mg/dL Creatinine 0.89 (0.52-1.04) mg/dL Estimated GFR > 60.0 (>60) mL/min BUN/Creatinine Ratio 23.6 H (6-22) Glucose 790 H* D (70-100) mg/dL Lactate 1.6 (0.7-2.1) mmol/L Calcium 10.8 H (8.4-10.2) mg/dL Phosphorus 8.7 H (2.5-4.5) mg/dL Magnesium 2.6 H (1.6-2.3) mg/dL Total Bilirubin 0.5 (0.2-1.3) mg/dL AST 20 (14-36) IU/L ALT 17 (<35) IU/L Alkaline Phosphatase 258 H (38-126) U/L Total Protein 8.2 (6.3-8.2) g/dL Albumin 4.7 (3.5-5.0) g/dL Globulin 3.5 (1.7-4.1) g/dL Albumin/Globulin Ratio 1.3 (1.0-2.8) Procalcitonin (<0.5) ng/mL Ketones 16.93 H (<0.27) mmol/L Point of Care Testing Glucose POC 500 ECG Data Interpretation: 1624: Sinus tachycardia, rate 128, ID interval 126, QTC [address] elevation or ST depression. No T-wave abnormality. No ectopy. EKG also viewed by Dr. Yap per protocol. MDM Narrative Medical decision making narrative: 29yo female with history of DMI with frequent episodes of DKA and history of recently drained cyst on the top of her head, presents emergency department for worsening swelling to her cyst and feeling like she is in DKA. Patient is clearly in DKA with elevated serum ketones, elevated serum glucose >700, acidotic pH-7.1, low bicarb, present anion gap, and low PCO2. 2L NS Bolus given, insulin drip started at 1.5units/kg with a potassium of 4.8. I suspect patient's DKA is exacerbated by worsening since which may possibly be infected. Dr. Anderson consulted to observe patient's worsening cysts per Dr. Yap. No suspicion of sepsis due to normal lactic acid, normal blood cell count, patient non febrile. However, lactic, procalcitonin, blood cultures were ordered due to continue infection despite draining and antibiotics. Patient and mother agreed to admission. Dr. Vargas accepts for ICU admission for further management and work-up. <Teddy Yap, DO - Last Filed: 10/30/19 09:10> Lab Data Labs: Lab Results 10/28/19 10/28/19 10/28/19 Range/Units 16:47 16:55 16:55 WBC 8.1 (4.5-11.0) X10^3/uL RBC 4.19 (4.0-5.2) X10^6/uL Hgb 14.2 (12.0-16.0) g/dL Hct 43.0 (36-46) % MCV 102.7 H D (80-100) fL MCH 34.0 (26-34) PG MCHC 33.1 (30-36) % RDW 13.4 (11.6-14.8) % Plt Count 411 H (150-400) X10^3/uL Neut % (Auto) 68.6 (50-75) % Lymph % (Auto) 23.6 L (25-40) % [place] % (Auto) 6.3 (3-14) % Eos % (Auto) 0.1 L (2-4) % Baso % (Auto) 1.4 (0-2) % Neut # (Auto) 5600 (3147-7897) /uL Lymph # (Auto) 1900 (2665-4127) /uL [place] # (Auto) 500 (0-900) /uL Eos # (Auto) 0 (0-450) /uL Baso # (Auto) 100 (0-100) /uL VBG pH 7.14 L* (7.33-7.43) VBG pCO2 18.9 L (45-50) mmHg VBG pO2 44 (35-45) mmHg VBG HCO3 7 L (23-28) mmol/L VBG Total CO2 7 L (24-29) mmol/L VBG O2 Saturation 68 L (70-75) % VBG Base Excess -22.0 L (0-4) mmol/L Sodium (137-145) mmol/L Potassium (3.4-5.1) mmol/L Chloride (98-107) mmol/L Carbon Dioxide (22-32) mmol/L BUN (7-17) mg/dL Creatinine (0.52-1.04) mg/dL Estimated GFR (>60) mL/min BUN/Creatinine Ratio (6-22) Glucose (70-100) mg/dL Lactate (0.7-2.1) mmol/L Calcium (8.4-10.2) mg/dL Phosphorus (2.5-4.5) mg/dL Magnesium (1.6-2.3) mg/dL Total Bilirubin (0.2-1.3) mg/dL AST (14-36) IU/L ALT (<35) IU/L Alkaline Phosphatase (38-126) U/L Total Protein (6.3-8.2) g/dL Albumin (3.5-5.0) g/dL Globulin (1.7-4.1) g/dL Albumin/Globulin Ratio (1.0-2.8) Procalcitonin 0.12 (<0.5) ng/mL Ketones (<0.27) mmol/L 10/28/19 10/28/19 10/28/19 Range/Units 16:55 16:55 16:55 WBC (4.5-11.0) X10^3/uL RBC (4.0-5.2) X10^6/uL Hgb (12.0-16.0) g/dL Hct (36-46) % MCV (80-100) fL MCH (26-34) PG MCHC (30-36) % RDW (11.6-14.8) % Plt Count (150-400) X10^3/uL Neut % (Auto) (50-75) % Lymph % (Auto) (25-40) % [place] % (Auto) (3-14) % Eos % (Auto) (2-4) % Baso % (Auto) (0-2) % Neut # (Auto) (0784-0374) /uL Lymph # (Auto) (3251-8164) /uL [place] # (Auto) (0-900) /uL Eos # (Auto) (0-450) /uL Baso # (Auto) (0-100) /uL VBG pH (7.33-7.43) VBG pCO2 (45-50) mmHg VBG pO2 (35-45) mmHg VBG HCO3 (23-28) mmol/L VBG Total CO2 (24-29) mmol/L VBG O2 Saturation (70-75) % VBG Base Excess (0-4) mmol/L Sodium 135 L (137-145) mmol/L Potassium 4.8 (3.4-5.1) mmol/L Chloride 94 L (98-107) mmol/L Carbon Dioxide < 5 L* (22-32) mmol/L BUN 21 H (7-17) mg/dL Creatinine 0.89 (0.52-1.04) mg/dL Estimated GFR > 60.0 (>60) mL/min BUN/Creatinine Ratio 23.6 H (6-22) Glucose 790 H* D (70-100) mg/dL Lactate 1.6 (0.7-2.1) mmol/L Calcium 10.8 H (8.4-10.2) mg/dL Phosphorus 8.7 H (2.5-4.5) mg/dL Magnesium 2.6 H (1.6-2.3) mg/dL Total Bilirubin 0.5 (0.2-1.3) mg/dL AST 20 (14-36) IU/L ALT 17 (<35) IU/L Alkaline Phosphatase 258 H (38-126) U/L Total Protein 8.2 (6.3-8.2) g/dL Albumin 4.7 (3.5-5.0) g/dL Globulin 3.5 (1.7-4.1) g/dL Albumin/Globulin Ratio 1.3 (1.0-2.8) Procalcitonin (<0.5) ng/mL Ketones 16.93 H (<0.27) mmol/L Point of Care Testing Glucose POC 500 Discharge Plan Departure Patient Disposition: Admitted As Inpatient Clinical Impression: Abscess DKA (diabetic ketoacidoses) Qualifiers: Diabetes mellitus type: type 1 Diabetes mellitus complication detail: without coma Qualified Code(s): E10.10 - Type 1 diabetes mellitus with ketoacidosis without coma Discharge Date/Time: 10/28/19 19:04 Admit Date/Time: 10/28/19 18:24 Admit Provider: Susy Vargas <Teddy Yap DO - Last Filed: 10/30/19 09:10> Cosign ED Attending Cosignature Attestation: I was immediately available in the department for consultation. This documentation has been reviewed and I agree with assessment and plan. Supervised by Teddy Yap DO
[2019-10-28] MEDS: HYDROMORPHONE 1 MG INJ IM (16:34)
--- NOTE | 2019-10-28 16:43 | PC.NURSE ---
Patient has a recurrent abscess that she had surgical I&D October 21. She has been into the ED several time for DKA and presented with a blood sugar of over 500 at 1630. The boil on her head is raised, red, and painful.
[2019-10-28] MEDS: SODIUM CHLORIDE 0.9% 1,000 ML 1000 ML IV ×2 (16:50→20:41)
[2019-10-28] MEDS: ONDANSETRON 4 MG/2 ML INJ IV (16:53)
[2019-10-28] MEDS: KETOROLAC 60 MG/2 ML VIAL 30 MG IV (16:53)
[2019-10-28 16:55] LABS: HCO3 VBG 7 mmol/L (23-28); PCO2 VBG 18.9 mmHg (45-50); PO2 VBG 44 mmHg (35-45); Total CO2 VBG 7 mmol/L (24-29); pH VBG 7.14 (7.33-7.43)
[2019-10-28 16:56] LABS: Oxygen Saturation VBG 68 % (70-75)
--- NOTE | 2019-10-28 17:00 | PC.NURSE ---
Midline 8cm-20g power cath placed upper lt arm basclic veil, one attempted. Labs drawn, line flushes with no problem.
[2019-10-28 17:04] LABS: Add Manual Diff / Slide Review NO; Basophils Absolute Auto 100 /uL (0-100); Basophils Percent Auto 1.4 % (0-2); Eosinophils Absolute Auto 0 /uL (0-450); Eosinophils Percent Auto 0.1 % (2-4); Hemoglobin 14.2 g/dL (12.0-16.0); Lymphocytes Absolute Auto 1900 /uL (1100-4500); Lymphocytes Percent Auto 23.6 % (25-40); Mean Corpuscular HGB Conc 33.1 % (30-36); Mean Corpuscular Volume 102.7 fL (80-100); Monocytes Absolute Auto 500 /uL (0-900); Monocytes Percent Auto 6.3 % (3-14); Neutrophils Absolute Auto 5600 /uL (1500-7000); Neutrophils Percent Auto 68.6 % (50-75); Platelet Count 411 X10^3/uL (150-400); Red Blood Cell Count 4.19 X10^6/uL (4.0-5.2); Red Cell Distribution Width 13.4 % (11.6-14.8); White Blood Cell Count 8.1 X10^3/uL (4.5-11.0)
--- NOTE | 2019-10-28 17:07 | PC.NURSE ---
Patient stated that around 1 pm this afternoon the top of her head around her abscess began to hurt. Shortly after that she began to feel sick all over her body.
[2019-10-28 17:22] LABS: Alanine Aminotransferase 17 IU/L (<35); Albumin 4.7 g/dL (3.5-5.0); Albumin Globulin Ratio 1.3 (1.0-2.8); Alkaline Phosphatase 258 U/L (38-126); Aspartate Aminotransferase 20 IU/L (14-36); BUN Creatinine Ratio 23.6 (6-22); Bilirubin Total 0.5 mg/dL (0.2-1.3); Blood Urea Nitrogen 21 mg/dL (7-17); Calcium 10.8 mg/dL (8.4-10.2); Chloride 94 mmol/L (98-107); Estimated Glomerular Filt Rate > 60.0 mL/min (>60); Globulin 3.5 g/dL (1.7-4.1); HEMOLYSIS < 15 (0-50); Potassium 4.8 mmol/L (3.4-5.1); Sodium 135 mmol/L (137-145); Total Protein 8.2 g/dL (6.3-8.2)
[2019-10-28 17:23] LABS: Lactate (Lactic Acid) 1.6 mmol/L (0.7-2.1)
[2019-10-28] MEDS: HYDROMORPHONE 0.5 MG INJ IV (17:28)
[2019-10-28 17:31] LABS: Carbon Dioxide < 5 mmol/L (22-32); Glucose 790 mg/dL (70-100)
[2019-10-28 17:43] LABS: Ketones (Beta-Hydroxybutyrate) 16.93 mmol/L (<0.27)
[2019-10-28] MEDS: SODIUM CHLORIDE 0.9% 1,000 ML 100 ML IV (17:48)
[2019-10-28] MEDS: INSULIN DRIP PREMIX 100 UNIT/100 ML PLAST..BAG 6 UNIT IV ×2 (18:02→18:45)
[2019-10-28 18:11] LABS: Procalcitonin 0.12 ng/mL (<0.5)
[2019-10-28 18:25] LABS: Magnesium 2.6 mg/dL (1.6-2.3); Phosphorous 8.7 mg/dL (2.5-4.5)
[2019-10-28] MEDS: SODIUM CHLORIDE 0.9% 1,000 ML 500 ML IV (19:36)
[2019-10-28] MEDS: HYDROMORPHONE 1 MG INJ IV (19:59)
[2019-10-28] MEDS: CEFTRIAXONE 1 GM/50 ML FROZ.PIGGY IV (19:59)
[2019-10-28] MEDS: SODIUM CHLORIDE 0.45% 1,000 ML 150 ML IV (20:42)
--- NOTE | 2019-10-28 21:34 | P.HP_ITS ---
History of Present Illness History of Present Illness Date Patient Seen: 10/28/19 Time Patient Seen: 19:15 Chief complaint: surgery on top of head thinks infected Narrative: Sarabjit Jimenes is a 29-year-old female well known to the staff, currently a diabetic type 1 and with a recurrent and difficulty heel abscess on the top of her head presented with increased pain today and in DKA. The patient has been admitted for DKA over 1 dozen times since 2018. She was seeing a director of digital platforms at [facility] however that staff person has since left and she is currently not being followed by an director of digital platforms at this time. The patient was initially admitted on April 30 and discharged on May 03 with a lesion on her head and in DKA. Or in October 13, she was seen again and noted to have a scalp folliculitis in addition to being in DKA. At discharged on October 15, she was referred to outpatient surgery and seen by Dr. Anderson on October 20. On October 21 he performed an excision and drainage under general anesthesia for the patient at that time she was discharged on cefdinir 300 mg b.i.d. for 7 days. She denies taking her dose today because she states she was unable to eat. She denies fever sweats or chills though she is mildly febrile on admission, denies difficulty swallowing, denies shortness of breath or chest pain, she is mildly nauseated, denies abdominal pain, dysuria, diarrhea or constipation. She denies any upper or lower extremity neuropathy. Her main complaint is of pain on top of her head. Today she is in a DKA. Her temperature is 99?, blood pressure 90/53, heart rate of 122, respiratory rate 18, oxygen saturation of 98% on room air. WBC is 8.1, RBC 4.19, hemoglobin 14.2, hematocrit 43%, platelet count 411. Admission VBG pH was 7.14, pCO2 18.9, PO2 44, bicarb 7 VBG total CO2 7, VBG O2 saturation 68%, sodium 135, potassium 4.8, chloride 94, serum CO2 5, creatinine 0.89, BUN 21, glucose 790, lactate 1.6, calcium 10.8, phosphorus 8.7, magnesium 2.6, bilirubin 0.5, AST 20, ALT 17, alk-phos 258, albumin 4.7, ketone 16.93 and a calculated anion gap of 37. The patient was noted to have poorly controlled diabetes type 1 and approximately 1 month ago her hemoglobin A1c was 14. The patient will be admitted to the ICU on insulin drip. DKA protocol. Dr. Anderson was notified by the ED and will be in to see the patient. Patient History Medical History DKA (diabetic ketoacidoses) (Resolved) History of pyelonephritis (Resolved) Irregular menstrual cycle (Acute) Migraine headache (Chronic) Nephrolithiasis (Resolved) Type 1 diabetes mellitus (Chronic) Surgical History (Updated 10/28/19 @ 21:59 by SHARYN Hurd) History of ureter stent (Resolved) Hx of local excision of skin lesion (Acute) Status post laser lithotripsy of ureteral calculus (Acute) [place] teeth extracted (Acute) Family & Social History Family History Father In good health Mother Cardiac disease Social History: household members significant other,family Prior Living Arrangements House Safety & Behavioral: Feels Safe in Current Yes Environment Been Physically Hurt or No Threatened By a Person Suicidal Ideation Description None Suicide Plan Description No Plan Tobacco & Substance use: Smoking Status Never smoker alcohol intake current alcohol intake frequency holiday/special occasion Substance Use Type does not use Meds Home Medications and Allergies Home Medications Medication Instructions Recorded Confirmed Type glucose 4 gram PO Q15M PRN #30 tab 12/12/18 10/22/19 Rx Glucagon Emergency Kit (human) 1 mg SUBCUT DIRECTED 02/16/19 10/22/19 History insulin lispro [Humalog KwikPen See Rx Instructions .ROUTE 03/10/19 10/22/19 Rx Insulin] .COMPLEX #0 ml Tresiba FlexTouch U-100 40 unit SUBCUT DAILY 09/30/19 10/22/19 History cefdinir 300 mg capsule 300 mg PO BID #14 cap 10/21/19 10/22/19 Rx oxycodone 5 mg PO Q6H PRN #30 tab 10/22/19 10/22/19 Rx Allergies Allergy/AdvReac Type Severity Reaction Status Date / Time abdalla [ABDALLA] Allergy Intermediate Hives, Verified 10/22/19 11:54 pruritus iodine [IODINE] Allergy Intermediate rash, itchy Verified 10/22/19 11:54 morphine Allergy Intermediate Difficulty Verified 10/22/19 11:54 Breathing shellfish derived Allergy Intermediate rash Verified 10/22/19 11:54 [SHELLFISH DERIVED] adhesive [ADHESIVE] Allergy Unknown tape Verified 10/22/19 11:54 latex [LATEX] Allergy Unknown Hives Verified 10/22/19 11:54 Review of Systems Review of Systems ROS: Yes All systems reviewed with the patient and are negative except as otherwise documented Exam Vital Signs (past 8 hours): - 10/28/19 16:01 10/28/19 17:02 10/28/19 17:08 Temperature 99.0 F Pulse Rate 133 H 125 H 118 H Respiratory Rate 24 12 Blood Pressure 110/71 100/59 L Pulse Oximetry 99 97 10/28/19 17:10 10/28/19 17:15 10/28/19 17:30 Temperature Pulse Rate 121 H 120 H 119 H Respiratory Rate 26 H 17 20 Blood Pressure 100/59 L 106/63 98/56 L Pulse Oximetry 98 98 98 10/28/19 17:45 10/28/19 18:00 10/28/19 18:15 Temperature Pulse Rate 119 H 123 H 121 H Respiratory Rate 14 12 9 L Blood Pressure 93/54 L Pulse Oximetry 96 96 95 10/28/19 18:19 10/28/19 18:30 10/28/19 18:45 Temperature 99.0 F Pulse Rate 120 H 119 H 126 H Respiratory Rate 11 L 10 L 13 Blood Pressure 91/50 L 90/52 L 109/66 Pulse Oximetry 96 97 100 10/28/19 19:03 Temperature Pulse Rate 122 H Respiratory Rate 18 Blood Pressure 90/53 L Pulse Oximetry 98 Oxygen Delivery Method Room Air Oxygen Flow Rate 0 Narrative Exam Narrative: Gen: Alert, oriented, thin 29 y.o. female, with facial flushing HEENT: Healing surgical wound raised and indurated, approximately 4 cm diameter, conjunctiva clear, sclera non-icteric, oral mucosa pink and moist Neck: supple, full ROM, no JVD, trachea is midline Resp: Lungs CTA, non-labored breathing CV: RRR, no murmur or rubs Abd: soft, non-tender, normoactive BTs Skin: see HEENT Neuro: Alert and oriented X 4 w/no focal deficits. Speech clear and coherent. Extremities: moves all 4 extremities, is ambulatory, negative Namita?s sign Psyche: normal mood and affect. Objective Labs Result Diagrams: 10/28/19 16:55 10/28/19 16:55 Labs: Laboratory Results - last 24 hr 10/28/19 10/28/19 10/28/19 16:47 16:55 16:55 WBC 8.1 RBC 4.19 Hgb 14.2 Hct 43.0 MCV 102.7 H D MCH 34.0 MCHC 33.1 RDW 13.4 Plt Count 411 H Neut % (Auto) 68.6 Lymph % (Auto) 23.6 L [place] % (Auto) 6.3 Eos % (Auto) 0.1 L Baso % (Auto) 1.4 Neut # (Auto) 5600 Lymph # (Auto) 1900 [place] # (Auto) 500 Eos # (Auto) 0 Baso # (Auto) 100 VBG pH 7.14 L* VBG pCO2 18.9 L VBG pO2 44 VBG HCO3 7 L VBG Total CO2 7 L VBG O2 Saturation 68 L VBG Base Excess -22.0 L Sodium Potassium Chloride Carbon Dioxide BUN Creatinine Estimated GFR BUN/Creatinine Ratio Glucose Lactate Calcium Phosphorus Magnesium Total Bilirubin AST ALT Alkaline Phosphatase Total Protein Albumin Globulin Albumin/Globulin Ratio Procalcitonin 0.12 Ketones 10/28/19 10/28/19 10/28/19 16:55 16:55 16:55 WBC RBC Hgb Hct MCV MCH MCHC RDW Plt Count Neut % (Auto) Lymph % (Auto) [place] % (Auto) Eos % (Auto) Baso % (Auto) Neut # (Auto) Lymph # (Auto) [place] # (Auto) Eos # (Auto) Baso # (Auto) VBG pH VBG pCO2 VBG pO2 VBG HCO3 VBG Total CO2 VBG O2 Saturation VBG Base Excess Sodium 135 L Potassium 4.8 Chloride 94 L Carbon Dioxide < 5 L* BUN 21 H Creatinine 0.89 Estimated GFR > 60.0 BUN/Creatinine Ratio 23.6 H Glucose 790 H* D Lactate 1.6 Calcium 10.8 H Phosphorus 8.7 H Magnesium 2.6 H Total Bilirubin 0.5 AST 20 ALT 17 Alkaline Phosphatase 258 H Total Protein 8.2 Albumin 4.7 Globulin 3.5 Albumin/Globulin Ratio 1.3 Procalcitonin Ketones 16.93 H Assessment & Plan Assessment & Plan narrative: Ms. Sarabjit Jimenes is a 28-year-old female patient with a history significant for type 1 diabetes, migraines, irregular menstruation and prior pyelolithiasis who presents to the ER with complaints of increased pain and swelling of a previously excised cyst on her posterior head. She is admitted with DKA to the intensive care unit. 1. Type 1 diabetes with diabetic ketoacidosis, acute, present on admission -patient with presenting VBG of pH 7.14, and a bicarb of 7. Calculated anion gap of 36. Serum bicarb is noted to be less than 5. Admission glucose 790 with elevated ketones 16.93. -patient was given 2 L of fluid bolus in the emergency room and started on insulin infusion. Will likely need more fluid resuscitation. Will continue at 250 cc per hour for now. -continue insulin gtt until glucose is improved, AG has closed, and bicarb is increased above 15. -initial potassium 4.9, will continue to trend BMP q.4 hours -continue telemetry monitoring -q.1 hour fingersticks -NPO but okay for mouth swabs -source is not entirely clear at this time. Patient does again have a large swollen lesions which was required I&D on 10/21. 2. Probable scalp sebaceous cyst, acute, present on admission - while NPO will give Ceftriaxone 1g q24 hours given previous MSSA - Dr. Anderson has been notified and performed a local I and D tonight. She will require wet to dry bid dressing changes. - convert to oral therapy she is off the insulin drip 3. History on medical non-compliance and lack of medical follow-through - Patient had been previously followed by Dr. Gay, director of digital platforms at [facility] who is apparently no longer there. - Patient appears to not have a PCP and will need to be set up w/one on discharge for close follow-up -I have requested a social work consult to help her get set up with a PCP and obtain local insurance Consults: Dr. Anderson consult and involvement is appreciated. Patient is inpatient status as her stay is likely to exceed 2 midnights. FEN: Insulin drip, NS, NPO, CMP in the am. VTE prophylaxis: Enoxaparin 40 mg subQ daily Dispo: Likely discharge to home Code Status: Full code
--- NOTE | 2019-10-28 22:15 | PM.CN ---
History of Present Illness Consult details Chief complaint: surgery on top of head thinks infected Reason for consult: Scalp abscess Narrative: This is a 29-year-old female known to me who has type 1 diabetes and a recurring scalp infection and associated ICU admissions for DKA. She underwent an excision of the chronically infected sebaceous scalp cyst week ago and was on course of cefdinir. Several days ago she had worsening pain of her scalp and fluid collection developed there. She presented to the ER tonight in DKA. She is afebrile, WBC 8 glucose 800. She has not had much drainage but she feels the area is increased in size and extremely painful at this time. Meds Home Medications and Allergies Home Medications Medication Instructions Recorded Confirmed Type glucose 4 gram PO Q15M PRN #30 tab 12/12/18 10/22/19 Rx Glucagon Emergency Kit (human) 1 mg SUBCUT DIRECTED 02/16/19 10/22/19 History insulin lispro [Humalog KwikPen See Rx Instructions .ROUTE 03/10/19 10/22/19 Rx Insulin] .COMPLEX #0 ml Tresiba FlexTouch U-100 40 unit SUBCUT DAILY 09/30/19 10/22/19 History cefdinir 300 mg capsule 300 mg PO BID #14 cap 10/21/19 10/22/19 Rx oxycodone 5 mg PO Q6H PRN #30 tab 10/22/19 10/22/19 Rx Allergies Allergy/AdvReac Type Severity Reaction Status Date / Time arredondo [ARREDONDO] Allergy Intermediate Hives, Verified 10/22/19 11:54 pruritus iodine [IODINE] Allergy Intermediate rash, itchy Verified 10/22/19 11:54 morphine Allergy Intermediate Difficulty Verified 10/22/19 11:54 Breathing shellfish derived Allergy Intermediate rash Verified 10/22/19 11:54 [SHELLFISH DERIVED] adhesive [ADHESIVE] Allergy Unknown tape Verified 10/22/19 11:54 latex [LATEX] Allergy Unknown Hives Verified 10/22/19 11:54 Review of Systems Review of Systems Narrative: A 10 point review of systems is negative except as noted in the HPI Exam Vital Signs (past 8 hours): - 10/28/19 16:01 10/28/19 17:02 10/28/19 17:08 Temperature 99.0 F Pulse Rate 133 H 125 H 118 H Respiratory Rate 24 12 Blood Pressure 110/71 100/59 L Pulse Oximetry 99 97 10/28/19 17:10 10/28/19 17:15 10/28/19 17:30 Temperature Pulse Rate 121 H 120 H 119 H Respiratory Rate 26 H 17 20 Blood Pressure 100/59 L 106/63 98/56 L Pulse Oximetry 98 98 98 10/28/19 17:45 10/28/19 18:00 10/28/19 18:15 Temperature Pulse Rate 119 H 123 H 121 H Respiratory Rate 14 12 9 L Blood Pressure 93/54 L Pulse Oximetry 96 96 95 10/28/19 18:19 10/28/19 18:30 10/28/19 18:45 Temperature 99.0 F Pulse Rate 120 H 119 H 126 H Respiratory Rate 11 L 10 L 13 Blood Pressure 91/50 L 90/52 L 109/66 Pulse Oximetry 96 97 100 10/28/19 19:03 10/28/19 21:43 Temperature 98.3 F Pulse Rate 122 H 114 H Respiratory Rate 18 11 L Blood Pressure 90/53 L 96/53 L Pulse Oximetry 98 97 Oxygen Delivery Method Room Air Oxygen Flow Rate 0 Narrative Exam Narrative: General-thin adult female extremely uncomfortable HEENT scalp incision with erythema nylon sutures in place. Fluctuant tender to palpation. Incision 4 inches in length. Neck-supple, no lymphadenopathy Chest- non labored respirations, clear to auscultation bilaterally Cardiac-tachycardia no peripheral edema Abdomen-soft, nontender, non distended Extremities-warm, well perfused Neurological-alert and oriented, no focal deficits Objective Labs Result Diagrams: 10/28/19 16:55 10/28/19 16:55 Labs: Laboratory Results - last 24 hr 10/28/19 10/28/19 10/28/19 16:47 16:55 16:55 WBC 8.1 RBC 4.19 Hgb 14.2 Hct 43.0 MCV 102.7 H D MCH 34.0 MCHC 33.1 RDW 13.4 Plt Count 411 H Neut % (Auto) 68.6 Lymph % (Auto) 23.6 L [place] % (Auto) 6.3 Eos % (Auto) 0.1 L Baso % (Auto) 1.4 Neut # (Auto) 5600 Lymph # (Auto) 1900 [place] # (Auto) 500 Eos # (Auto) 0 Baso # (Auto) 100 VBG pH 7.14 L* VBG pCO2 18.9 L VBG pO2 44 VBG HCO3 7 L VBG Total CO2 7 L VBG O2 Saturation 68 L VBG Base Excess -22.0 L Sodium Potassium Chloride Carbon Dioxide BUN Creatinine Estimated GFR BUN/Creatinine Ratio Glucose Lactate Calcium Phosphorus Magnesium Total Bilirubin AST ALT Alkaline Phosphatase Total Protein Albumin Globulin Albumin/Globulin Ratio Procalcitonin 0.12 Ketones 10/28/19 10/28/19 10/28/19 16:55 16:55 16:55 WBC RBC Hgb Hct MCV MCH MCHC RDW Plt Count Neut % (Auto) Lymph % (Auto) [place] % (Auto) Eos % (Auto) Baso % (Auto) Neut # (Auto) Lymph # (Auto) [place] # (Auto) Eos # (Auto) Baso # (Auto) VBG pH VBG pCO2 VBG pO2 VBG HCO3 VBG Total CO2 VBG O2 Saturation VBG Base Excess Sodium 135 L Potassium 4.8 Chloride 94 L Carbon Dioxide < 5 L* BUN 21 H Creatinine 0.89 Estimated GFR > 60.0 BUN/Creatinine Ratio 23.6 H Glucose 790 H* D Lactate 1.6 Calcium 10.8 H Phosphorus 8.7 H Magnesium 2.6 H Total Bilirubin 0.5 AST 20 ALT 17 Alkaline Phosphatase 258 H Total Protein 8.2 Albumin 4.7 Globulin 3.5 Albumin/Globulin Ratio 1.3 Procalcitonin Ketones 16.93 H Assessment & Plan Assessment & Plan narrative: 29-year-old female with type 1 diabetes extremely poorly controlled last A1c is greater than 14 admitted to the hospital with a recurrent scalp infection and DKA. The scalp wound appears of infected once again. I removed the nylon sutures from her scalp wound and a large volume of purulent material freely drained from it. This was irrigated out and the wound was then packed with quarter-inch gauze packing. Cavity is grossly clean its depth goes all the way to the skull. She needs wet-to-dry packing of the scalp wound twice daily. Long-term she will need chronic wound care and the wound will need to heal by secondary intention anticipate this will probably take several months and is complicated by her severe DM. She needs a wound care consult. No acute surgical intervention is necessary.
[2019-10-28] MEDS: HYDROMORPHONE 1 MG INJ (22:42)
[2019-10-28] MEDS: DEXTROSE 5%-0.45% NS 1,000 ML 70.7 ML IV (22:42)
[2019-10-28 23:13] LABS: BUN Creatinine Ratio 26.1 (6-22); Blood Urea Nitrogen 23 mg/dL (7-17); Calcium 8.9 mg/dL (8.4-10.2); Carbon Dioxide 13 mmol/L (22-32); Chloride 108 mmol/L (98-107); Estimated Glomerular Filt Rate > 60.0 mL/min (>60); Glucose 285 mg/dL (70-100); HEMOLYSIS < 15 (0-50); Potassium 3.5 mmol/L (3.4-5.1); Sodium 139 mmol/L (137-145)
[2019-10-29] VITALS (13 sets, daily range): BP systolic 95–111; BP diastolic 52–66; PULSE 91–108; RESP 10–21; TEMP 36.6–37.8; O2SAT 95–100
--- NOTE | 2019-10-29 00:03 | PC.NURSE ---
Addendum entered by Mary Nagel R.N. 10/29/19 00:15: 2145 Dr Anderson at bedside, he removed the nylon sutures from pt scalp wound and a large volume of purulent material freely drained from it. This was irrigated out and the wound was then packed with quarter-inch gauze packing, wound otherwise to be left JULIAN with a strip of packing left out for ease of removing the packing during dressing changes. Verbal orders given for wet-to-dry packing of the scalp wound to be done by nursing staff twice daily. Pt tolerated the procedure well, was medicated with 1mg Dilaudid before procedure (per verbal order). Pt and fiance were educated by Dr. Anderson regarding the need for terminal supervisor wound care and suggested that pt be seen at the wound clinic for care. Pt resting in bed with a cool cloth over her eyes, no further needs at this time, will continue to monitor. Original Note: 1850 Pt arrived to unit via gurney from ED, A/O x3, VSS, Insulin infusing at 6ml /hr, NS bolus of 2 of 2 infusing at 500 ml/hr per orders, into PICC line placed in the ED with a multi lumen attachment. Pt able to scoot from gurney into bed, connected to the monitor. Assessment completed, pain is 6/10, pt received a total of 1.5 mg IV Dilaudid in the ED. Initial FSBG greater than 500, protocol followed, Insulin titrated to 7.1 ml/hr, NS bolus continues to infuse at 500ml/hr. Pt oriented to room and call light system, Dr. Anderson has been paged to see pt at bedside for consult of cyst on pt head that he had treated a week ago, Hospitalist made pt strict NPO in anticipation of pt returning to OR for I and D of cyst. Bed low and locked, call light with-in reach, will continue to monitor.
[2019-10-29] MEDS: diphenhydrAMINE 50 MG/ML VIAL 25 MG IV ×2 (00:47→08:00)
[2019-10-29] MEDS: DEXTROSE 10 % IN WATER 1,000 ML 47.5 ML IV (02:51)
--- NOTE | 2019-10-29 04:10 | PC.NURSE ---
Addendum entered by Amee Esparza R.N. 10/29/19 05:35: Medicated for pain, labs drawn from midline. Denies nausea. IVF infusing, d10, last CBG 133. Original Note: AM shift Assumed care of patient @ 0300, Pt reporting pain managed to scalp wound. CBG @0340 109, insulin gtt paused and recheck done @ 0400. 122. d10 infusing per protocol. Ice chips at bedside.
[2019-10-29] MEDS: HYDROMORPHONE 1 MG INJ IV ×2 (05:14→09:35)
[2019-10-29 05:27] LABS: Add Manual Diff / Slide Review NO; Basophils Absolute Auto 100 /uL (0-100); Basophils Percent Auto 1.4 % (0-2); Eosinophils Absolute Auto 100 /uL (0-450); Eosinophils Percent Auto 0.8 % (2-4); Hematocrit 32.8 % (36-46); Hemoglobin 11.4 g/dL (12.0-16.0); Lymphocytes Absolute Auto 1800 /uL (1100-4500); Lymphocytes Percent Auto 27.9 % (25-40); Mean Corpuscular HGB Conc 34.7 % (30-36); Mean Corpuscular Hemoglobin 33.2 PG (26-34); Mean Corpuscular Volume 95.7 fL (80-100); Monocytes Absolute Auto 700 /uL (0-900); Monocytes Percent Auto 10.6 % (3-14); Neutrophils Absolute Auto 3800 /uL (1500-7000); Neutrophils Percent Auto 59.3 % (50-75); Platelet Count 306 X10^3/uL (150-400); Red Blood Cell Count 3.43 X10^6/uL (4.0-5.2); Red Cell Distribution Width 13.3 % (11.6-14.8); White Blood Cell Count 6.4 X10^3/uL (4.5-11.0)
[2019-10-29 05:40] LABS: Alanine Aminotransferase 13 IU/L (<35); Albumin 3.5 g/dL (3.5-5.0); Albumin Globulin Ratio 1.3 (1.0-2.8); Alkaline Phosphatase 104 U/L (38-126); Aspartate Aminotransferase 24 IU/L (14-36); BUN Creatinine Ratio 35.4 (6-22); Bilirubin Total 0.3 mg/dL (0.2-1.3); Blood Urea Nitrogen 23 mg/dL (7-17); Calcium 8.9 mg/dL (8.4-10.2); Carbon Dioxide 21 mmol/L (22-32); Chloride 108 mmol/L (98-107); Estimated Glomerular Filt Rate > 60.0 mL/min (>60); Globulin 2.8 g/dL (1.7-4.1); Glucose 129 mg/dL (70-100); Magnesium 1.9 mg/dL (1.6-2.3); Phosphorous 4.9 mg/dL (2.5-4.5); Sodium 138 mmol/L (137-145); Total Protein 6.3 g/dL (6.3-8.2)
[2019-10-29 05:42] LABS: Ketones (Beta-Hydroxybutyrate) 3.28 mmol/L (<0.27)
[2019-10-29 05:52] LABS: HEMOLYSIS 52 (0-50)
[2019-10-29 05:53] LABS: HCO3 VBG 22 mmol/L (23-28); Oxygen Saturation VBG 100 % (70-75); PCO2 VBG 36.1 mmHg (45-50); PO2 VBG 168 mmHg (35-45); Total CO2 VBG 23 mmol/L (24-29)
[2019-10-29 05:54] LABS: Potassium 3.7 mmol/L (3.4-5.1)
[2019-10-29] MEDS: INSULIN GLARGINE 100 UNIT/ML 3ML PEN 40 UNIT SUBCUT (07:28)
[2019-10-29] MEDS: POTASSIUM CHLORIDE 40 MEQ in SODIUM CHLORIDE 0.9% 500 ML 130 ML IV (07:29)
[2019-10-29] MEDS: ENOXAPARIN 40 MG/0.4 ML SYRINGE SUBCUT (08:00)
[2019-10-29] MEDS: TRESIBA 100 UNIT/ML 40 EACH SUBCUT (08:02)
--- NOTE | 2019-10-29 10:35 | PC.NURSE ---
Addendum entered by Taylor Ceja R.N. 10/29/19 14:57: changed dressing again after DR. Zhu ( wound care ) per his instructions- pt tearful and instructed by Dr. Vargas rather frankly re: hgb aic >14- changes made to insulin coverage with increases to tresiba and correctional as well mealtime coverage- pt seems to be good with order changes- taking carb consistant diet - dilaudid discontinued and initiated oxycodone po prn Original Note: PT REMAINS TEARFUL AT EACH INTERACTION THIS AM- DOES ENDORSE PAIN AND ITCHING AT SITE OF WOUND- TOO SOON TO MEDICATE WITH IV DILAUDID AND SHE DECLINES ACETAMINOPHEN- DID MEDICATE WITH IV BENEDRYL FOR THE C/O ITCHING. ANION GAP CLOSED AND SWITCHED OVER TO HER SUBCUTANEOUS TRESIBA INSULIN PER MD ORDERS - WILL SWITCH TO CBG ACHS WELL AND DIET ORDERED WITH LEAST AMOUNT OF CARBS ALLOWED- ALSO PER MD RECOMMENDATION. LIMITING PT TO ONE SANDWICH BETWEEN MEALS THIS AM - INSULIN GTT OFF PER FMAR AND POTASSIUM REPLACEMENT INFUSING AT THIS TIME- I DID MEDICATE WITH IV DILAUDID WITHIN ALLOWED TIME FRAME AND CHANGED DRESSING TO TOP OF HEAD A THIS TIME SHE WAS CRYING - STATING DRESSING HAD FALLEN OUT/OFF. WET-DRY 1/4IODOFORM GAUZE DRESSING - PACKED UNDER LIP OF SCALP- APPROX 3-4 USED. SHE CONTINUES TO BE INTERMITTENT TEARFUL.
[2019-10-29] MEDS: INSULIN ASPART 100 UNIT/ML INSULN PEN SUBCUT ×3 (13:25→21:15)
[2019-10-29 13:29] LABS: Hemoglobin A1C% w Est Avg Glu > 14.0 % (4.0-6.0)
--- NOTE | 2019-10-29 13:30 | P.PN_ITS ---
Subjective Subjective Date Patient Seen: 10/29/19 Interval history: Sarabjit Jimenes is a 28-year-old female with a past medical history significant for type 1 diabetes and prior pyelolithiasis who presented to the ED with complaints of increased pain and swelling of a previously excised scalp abscess. The patient is resting in bed and appears uncomfortable. She endorses pain from I&D of the abscess on her scalp. Plan to start oral pain medications. She is tearful and endorses depression and frustration with her diabetic management and following up with specialist during -. Discussed insulin and patient is adamant that she takes her insulin religiously and as prescribed, rarely missing a dose. Discussed diet inpatient admits to possibly overeating her insulin. She has no other complaints and denies chest pain, shortness of breath, abdominal pain, nausea, vomiting, fever, chills, dysuria, diarrhea or constipation. She is voiding and eliminating without difficulty. She is up ambulating independently. Exam Vital Signs (past 8 hours): - 10/29/19 07:25 10/29/19 08:27 10/29/19 12:17 Temperature 98.2 F Pulse Rate 93 H Respiratory Rate 12 Blood Pressure 108/59 L Pulse Oximetry 98 99 95 10/29/19 13:04 Temperature 98.7 F Pulse Rate 91 H Respiratory Rate 13 Blood Pressure 102/61 Pulse Oximetry 100 Oxygen Delivery Method Room Air Oxygen Flow Rate 0 Narrative Exam Narrative: General: Young female lying in bed uncomfortable but in no cute distress, well- developed, well-nourished, emotionally labile and tearful but appropriately i nteractive. HEENT: Normocephalic, atraumatic. External ears without defect. Pupils equal, round, and reactive to light. Anicteric sclerae, moist conjunctivae, and no lid lag. Oropharynx free of erythema and cobble stoning with moist mucosa. Large open scalp surgical wound in with surronding cellulitis. Neck: Supple with full range of motion. No lymphadenopathy or thyromegaly. Cardiovascular: Regular rate and rhythm without murmurs, rubs, or gallops appreciated Pulmonary: Clear to auscultation bilaterally without crackles, wheezes, or rhonchi. Normal respiratory effort with no use of accessory muscles. Abdomen: Soft, bowel sounds present, nontender, nondistended. No hepatosplenomegaly or masses appreciated. Extremities: No clubbing, cyanosis, or edema. Skin: Normal temperature, turgor, and texture; no rash, ulcers, or subcutaneous nodules appreciated. Neurological: Cranial nerves grossly intact. . Psychiatric: Depressed mood and flat affect. Emotionally labile and tearful but cooperative. Alert and oriented to person, place, and time. Objective Labs Result Diagrams: 10/30/19 05:45 10/29/19 05:00 Labs: Laboratory Results - last 24 hr 10/28/19 10/28/19 10/28/19 16:47 16:55 16:55 WBC 8.1 RBC 4.19 Hgb 14.2 Hct 43.0 MCV 102.7 H D MCH 34.0 MCHC 33.1 RDW 13.4 Plt Count 411 H Neut % (Auto) 68.6 Lymph % (Auto) 23.6 L [place] % (Auto) 6.3 Eos % (Auto) 0.1 L Baso % (Auto) 1.4 Neut # (Auto) 5600 Lymph # (Auto) 1900 [place] # (Auto) 500 Eos # (Auto) 0 Baso # (Auto) 100 VBG pH 7.14 L* VBG pCO2 18.9 L VBG pO2 44 VBG HCO3 7 L VBG Total CO2 7 L VBG O2 Saturation 68 L VBG Base Excess -22.0 L Sodium Potassium Chloride Carbon Dioxide BUN Creatinine Estimated GFR BUN/Creatinine Ratio Glucose Lactate Calcium Phosphorus Magnesium Total Bilirubin AST ALT Alkaline Phosphatase Total Protein Albumin Globulin Albumin/Globulin Ratio Procalcitonin 0.12 Ketones 10/28/19 10/28/19 10/28/19 16:55 16:55 16:55 WBC RBC Hgb Hct MCV MCH MCHC RDW Plt Count Neut % (Auto) Lymph % (Auto) [place] % (Auto) Eos % (Auto) Baso % (Auto) Neut # (Auto) Lymph # (Auto) [place] # (Auto) Eos # (Auto) Baso # (Auto) VBG pH VBG pCO2 VBG pO2 VBG HCO3 VBG Total CO2 VBG O2 Saturation VBG Base Excess Sodium 135 L Potassium 4.8 Chloride 94 L Carbon Dioxide < 5 L* BUN 21 H Creatinine 0.89 Estimated GFR > 60.0 BUN/Creatinine Ratio 23.6 H Glucose 790 H* D Lactate 1.6 Calcium 10.8 H Phosphorus 8.7 H Magnesium 2.6 H Total Bilirubin 0.5 AST 20 ALT 17 Alkaline Phosphatase 258 H Total Protein 8.2 Albumin 4.7 Globulin 3.5 Albumin/Globulin Ratio 1.3 Procalcitonin Ketones 16.93 H 10/28/19 10/29/19 10/29/19 22:50 05:00 05:00 WBC 6.4 RBC 3.43 L Hgb 11.4 L Hct 32.8 L MCV 95.7 D MCH 33.2 MCHC 34.7 RDW 13.3 Plt Count 306 Neut % (Auto) 59.3 Lymph % (Auto) 27.9 [place] % (Auto) 10.6 Eos % (Auto) 0.8 L Baso % (Auto) 1.4 Neut # (Auto) 3800 Lymph # (Auto) 1800 [place] # (Auto) 700 Eos # (Auto) 100 Baso # (Auto) 100 VBG pH VBG pCO2 VBG pO2 VBG HCO3 VBG Total CO2 VBG O2 Saturation VBG Base Excess Sodium 139 138 Potassium 3.5 D 3.7 Chloride 108 H 108 H Carbon Dioxide 13 L 21 L BUN 23 H 23 H Creatinine 0.88 0.65 Estimated GFR > 60.0 > 60.0 BUN/Creatinine Ratio 26.1 H 35.4 H Glucose 285 H D 129 H D Lactate Calcium 8.9 8.9 Phosphorus 4.9 H D Magnesium 1.9 Total Bilirubin 0.3 AST 24 ALT 13 Alkaline Phosphatase 104 D Total Protein 6.3 Albumin 3.5 Globulin 2.8 Albumin/Globulin Ratio 1.3 Procalcitonin Ketones 3.28 H 10/29/19 05:46 WBC RBC Hgb Hct MCV MCH MCHC RDW Plt Count Neut % (Auto) Lymph % (Auto) [place] % (Auto) Eos % (Auto) Baso % (Auto) Neut # (Auto) Lymph # (Auto) [place] # (Auto) Eos # (Auto) Baso # (Auto) VBG pH 7.40 VBG pCO2 36.1 L VBG pO2 168 H VBG HCO3 22 L VBG Total CO2 23 L VBG O2 Saturation 100 H VBG Base Excess -3.0 L Sodium Potassium Chloride Carbon Dioxide BUN Creatinine Estimated GFR BUN/Creatinine Ratio Glucose Lactate Calcium Phosphorus Magnesium Total Bilirubin AST ALT Alkaline Phosphatase Total Protein Albumin Globulin Albumin/Globulin Ratio Procalcitonin Ketones Assessment & Plan Assessment & Plan narrative: Sarabjit Jimenes is a 28-year-old female with a past medical history significant for type 1 diabetes and prior pyelolithiasis who presented to the ED with complaints of increased pain and swelling of a previously excised scalp abscess. 1. Type 1 diabetes with diabetic ketoacidosis, acute, present on admission. Reso lved. -Hemoglobin A1C 14%. -VBG: pH 7.14 and Bicarb 7. Calculated anion gap of 36. Serum bicarb is noted to be less than 5. Admission glucose 790 with elevated ketones 16.93. -patient was given 2 L of fluid bolus of NS and insulin gtt started. Continued DKA protocol and monitored blood glucose every 1 hour and electrolytes with BMP every 4 hours. Continued insulin gtt until AG closed. Restarted home Tresiba 40 units and will increase to 50 units once taking in PO intake. Continue high dose correctional scale insulin and nutritional insulin 7 units with each meal. -Continue to monitor closely on telemetry. -Consulted frit coater and we appreciate her time and recommendations. Uncontrolled diabetes appears to ve from non-compliance of diet and likely lesser degree insulin regimen. Patient has also not showed up for multiple doctors appointments in the past and diabetic education. 2. Acute scalp abscess with surrounding cellulitis, present on admission. Active. -Continued ceftriaxone 1g daily given previous scalp wound culture growing MSSA. Switched to augmentin twice daily after discussion with wound care Dr. Morris. -Consulted general surgery , Dr. Anderson who performed I&D. -Continue wound care per Dr. Ponce instruction and outpatient. 3. History on medical non-compliance and lack of medical follow-through. -Patient had been previously followed by Dr. Gay, patch press operator at [facility] who is apparently no longer there. -Patient appears to not have a PCP and will need to be set up w/one on discharge for close follow-up -Consulted SEWING DEMONSTRATOR to help her get set up with a PCP and outpatient follow-up and resources. Code status: Full code VTE prophylaxis: Disposition: Patient will likely discharge in next 1-2 days after infection treated and stable BG with diabetic management.
[2019-10-29] MEDS: HYDROMORPHONE 1 MG INJ (13:37)
[2019-10-29] MEDS: AMOXICILLIN/CLAV 875/125 MG 1 TAB PO ×2 (13:37→21:15)
[2019-10-29] MEDS: OXYCODONE IR 10 MG TABLET PO ×2 (14:47→23:30)
--- NOTE | 2019-10-29 15:52 | DIET.PN ---
Dietary Progress Note Assessment: Ms. Jimenes is a 29 yof well known to me through several encounters for inpatient diabetes education. She endorses frustration with her diabetic management and following up with her provider for several months. She confirms she is taking her insulin as prescribed and rarely overeats or snacks. She states she is not interested in any form of telehealth, but would rather meet in person. HT: 154.94cm WT: 47.17kg UBW: stable BMI: 19.7 Labs: A1c: >14 Ketones: 16.93 (on admit) 3.28 (10/28) Nutrition Diagnosis: Altered nutrition related lab values r/t endocrine dysfunction aeb elevated A1c, blood glucose, ketones, not ready for diet/lifestyle change. Interventions: Patient has agreed to outpatient nutrition therapy and diabetes management with this educator. She is willing to meet on an individual basis to review medication management, food records, blood glucose logs, and lifestyle behavior. Diet Order: CCD Monitoring/Evaluations: Referral for outpatient diabetes education already in place. Patient will confirm appointment date after speaking with family tomorrow (10/29/19).
[2019-10-29] MEDS: INSULIN ASPART 100 UNIT/ML INSULN PEN 7 UNIT SUBCUT (17:05)
[2019-10-29] MEDS: ACETAMINOPHEN 325 MG TABLET 650 MG PO ×2 (17:05→23:30)
[2019-10-30] VITALS (7 sets, daily range): BP systolic 96–108; BP diastolic 57–70; PULSE 89–97; RESP 12–19; TEMP 36.9–37.1; O2SAT 97–100
[2019-10-30] MEDS: diphenhydrAMINE 50 MG/ML VIAL 25 MG IV ×3 (00:10→09:01)
--- NOTE | 2019-10-30 04:11 | PC.NURSE ---
Addendum entered by Nimisha Strong R.N. 10/30/19 06:22: Pt dressing saturated at start of shift. Would cleaned and dressing changed, per orders. Oxycodone given prior to dressing change to help with pain. Pt tolerated well. No new drainage since. [facility] Original Note: Pt alert and oriented. SBA to restroom. Pt reports head pain at abscess site. Pain resolved with PRN oxycodone. Pt reports getting itchy after taking oxycodone and requests benedryl. Pt resting in bed now without complaints.
[2019-10-30] MEDS: ACETAMINOPHEN 325 MG TABLET 650 MG PO ×2 (06:05→12:33)
[2019-10-30] MEDS: OXYCODONE IR 5 MG TABLET PO ×3 (06:10→12:57)
[2019-10-30 06:11] LABS: Add Manual Diff / Slide Review NO; Basophils Absolute Auto 0 /uL (0-100); Basophils Percent Auto 0.9 % (0-2); Eosinophils Absolute Auto 100 /uL (0-450); Eosinophils Percent Auto 2.6 % (2-4); Hematocrit 33.1 % (36-46); Lymphocytes Absolute Auto 2400 /uL (1100-4500); Lymphocytes Percent Auto 49.5 % (25-40); Mean Corpuscular HGB Conc 33.3 % (30-36); Mean Corpuscular Hemoglobin 32.7 PG (26-34); Mean Corpuscular Volume 98.3 fL (80-100); Monocytes Absolute Auto 300 /uL (0-900); Monocytes Percent Auto 6.9 % (3-14); Neutrophils Absolute Auto 2000 /uL (1500-7000); Neutrophils Percent Auto 40.1 % (50-75); Platelet Count 227 X10^3/uL (150-400); Red Blood Cell Count 3.37 X10^6/uL (4.0-5.2); Red Cell Distribution Width 13.4 % (11.6-14.8); White Blood Cell Count 4.9 X10^3/uL (4.5-11.0)
[2019-10-30 06:23] LABS: Alanine Aminotransferase 12 IU/L (<35); Albumin 2.9 g/dL (3.5-5.0); Albumin Globulin Ratio 1.2 (1.0-2.8); Alkaline Phosphatase 102 U/L (38-126); Aspartate Aminotransferase 26 IU/L (14-36); BUN Creatinine Ratio 39.7 (6-22); Bilirubin Total 0.4 mg/dL (0.2-1.3); Blood Urea Nitrogen 25 mg/dL (7-17); Carbon Dioxide 25 mmol/L (22-32); Chloride 109 mmol/L (98-107); Estimated Glomerular Filt Rate > 60.0 mL/min (>60); Globulin 2.4 g/dL (1.7-4.1); Glucose 127 mg/dL (70-100); HEMOLYSIS < 15 (0-50); Magnesium 1.9 mg/dL (1.6-2.3); Potassium 3.9 mmol/L (3.4-5.1); Sodium 139 mmol/L (137-145); Total Protein 5.3 g/dL (6.3-8.2)
[2019-10-30 06:40] LABS: Procalcitonin 0.06 ng/mL (<0.5)
[2019-10-30] MEDS: INSULIN ASPART 100 UNIT/ML INSULN PEN 7 UNIT SUBCUT ×2 (08:57→12:33)
[2019-10-30] MEDS: INSULIN ASPART 100 UNIT/ML INSULN PEN SUBCUT ×3 (08:58→12:32)
[2019-10-30] MEDS: AMOXICILLIN/CLAV 875/125 MG 1 TAB PO (09:05)
--- NOTE | 2019-10-30 14:33 | PC.NURSE ---
Am shift Pt has been controlled with pain using oxy 5 q4, Pt reports she has a supply at home from Dr Anderson. Awaiting scheduling for wound care, message left for appt. Pt is eager to d/c home. Midline removed, and appts set for endocrinolgy and previous held f/u appt with Dr Anderson for Saturday. Education provided for wound care with Pt's mother at d/c, packing and scheduled. Supplies sent home as well. D/c to private vehicle.
--- NOTE | 2019-10-30 15:29 | CM.DPNOTE ---
DC Note DC order in place, reviewed the following w/patient: -Provided list of primary care providers in [place], placed call to all clinics and there is not one ([facility] clinic closed today) that accepts Coordinated Care -Placed call to [facility], Endocrinology, secured appt w/provider Sabine Yi for November 08 at 1600, confirmed this appt time w/patient and her mother and all in agreement, mother to transport -Provided list of [facility] providers, emphasized that if patient wanted to stay in [place] she could call Devon Watters and request to schedule an appt w/ Mike Mata counselor in the [place] office -Encouraged patient and mother to consider switching Coordinated Care to another managed Medicaid plan that [facility] accepts, open enrollment unknown but encouraged patient to contact Admissions Counselors to arrange an appt to talk about this -Educated patient and her mom about managed [facility] plans and their hospice case manager, the case therapist role is designed to follow patients that are high utilizes of outpt services, to advocate and assist in coordinating these outpt services and identify barriers and address them, patient/family appreciative and will investigate. This UNDERWRITING TECHNICIAN unable to assist w/this today d/t caseload demands. -Strongly encouraged patient to consider calling Tahir Watters or other [facility] counseling provider to secure counseling to assist in support and to strengthen coping strategies, Commended patient for all that she has survived let her know this UNDERWRITING TECHNICIAN recognized her strengths and abilities, knowing that she has struggled to manage a chronic disease her entire life. Patient appreciative and does admit I didn't get a childhood. P: DC home w/mom today w/ close outpt f/u RAYMOND Loza
--- NOTE | 2019-10-31 16:00 | PM.DS.1 ---
History of Present Illness History of Present Illness Date Patient Seen: 10/30/19 Chief complaint: surgery on top of head thinks infected Narrative: Sarabjit Jimenes is a 29-year-old female well known to the staff, currently a diabetic type 1 and with a recurrent and difficulty heel abscess on the top of her head presented with increased pain today and in DKA. The patient has been admitted for DKA over 1 dozen times since 2018. She was seeing a audit consultant at [facility] however that staff person has since left and she is currently not being followed by an audit consultant at this time. The patient was initially admitted on April 30 and discharged on May 03 with a lesion on her head and in DKA. Or in October 13, she was seen again and noted to have a scalp folliculitis in addition to being in DKA. At discharged on October 15, she was referred to outpatient surgery and seen by Dr. Anderson on October 20. On October 21 he performed an excision and drainage under general anesthesia for the patient at that time she was discharged on cefdinir 300 mg b.i.d. for 7 days. She denies taking her dose today because she states she was unable to eat. She denies fever sweats or chills though she is mildly febrile on admission, denies difficulty swallowing, denies shortness of breath or chest pain, she is mildly nauseated, denies abdominal pain, dysuria, diarrhea or constipation. She denies any upper or lower extremity neuropathy. Her main complaint is of pain on top of her head. Today she is in a DKA. Her temperature is 99?, blood pressure 90/53, heart rate of 122, respiratory rate 18, oxygen saturation of 98% on room air. WBC is 8.1, RBC 4.19, hemoglobin 14.2, hematocrit 43%, platelet count 411. Admission VBG pH was 7.14, pCO2 18.9, PO2 44, bicarb 7 VBG total CO2 7, VBG O2 saturation 68%, sodium 135, potassium 4.8, chloride 94, serum CO2 5, creatinine 0.89, BUN 21, glucose 790, lactate 1.6, calcium 10.8, phosphorus 8.7, magnesium 2.6, bilirubin 0.5, AST 20, ALT 17, alk-phos 258, albumin 4.7, ketone 16.93 and a calculated anion gap of 37. The patient was noted to have poorly controlled diabetes type 1 and approximately 1 month ago her hemoglobin A1c was 14. The patient will be admitted to the ICU on insulin drip. DKA protocol. Dr. Anderson was notified by the ED and will be in to see the patient. Discharge Providers Provider Date of admission: 10/28/19 18:24 Discharge Date: 10/30/19 Consults: 10/28/19 18:21 Consult to General Surgery Stat Comment: Consulting Provider: Jimmy Anderson Reason for consultation: Worsening abscess that was surgically drained 10/22/2019 10/28/19 19:14 Consult to Dietitian, Adult Routine Comment: Reason For Exam: DKA 10/29/19 06:56 Consult to Wound Care Routine Comment: Scalp sebeceous cyst Consulting Provider: Inocencio- Wound Care 10/29/19 10:32 Consult to SPRING ASSEMBLER SUPERVISOR - Refrigerated Company Driver Routine Comment: Needs PCP and local insurance, [employer]? SPRING ASSEMBLER SUPERVISOR Consult: [facility] Res Need Discharge provider: Gale Arita MD Summary Hospital Course Discharge Diagnosis: 1. Diabetic ketoacidosis, present on admission, now resolved 2. Scalp infection, status post I&D 3. Poorly controlled diabetes Hospital Course: Patient was admitted to the hospital for recurrent infection involving her scalp. She was seen in consultation by Dr. Anderson. He performed an I&D and drainage of the scalp lesion. The patient was treated with IV antibiotics and switched to oral Augmentin. She was in DKA upon admission. She was placed on an insulin drip. Her anion gap was closed she was subsequently switched to subcutaneous insulin with pre meal insulin and correctional insulin on top. Her Tresiba was increased to 50 units from 40 units. Patient had a meeting with social work, dietary/nutrition and agree to an outpatient nutrition evaluation. She will be seen at the [facility] clinic for follow-up appointment. She is awaiting follow-up with [facility] regarding further management of her diabetes. The patient improved significantly had no further issues and was deemed appropriate for discharge home. Exam Vital Signs (past 8 hours): Oxygen Delivery Method Room Air Oxygen Flow Rate 0 Narrative Exam Narrative: Pleasant diminuitve female lying in bed in no acute distress Lungs: Clear to auscultation Cardiac exam: Regular rate rhythm normal S1-S2 Abdomen: Soft nontender nondistended Extremities: No edema Objective Labs Result Diagrams: 10/30/19 05:45 10/30/19 05:45 Discharge Plan Discharge Plan Patient Disposition: Home Discharge orders & Medications Prescriptions: New amoxicillin-pot clavulanate [Augmentin] 875-125 mg Tablet 1 tab PO BID Qty: 10 RF: 0 Insulin Deglude 50 unit SUBCUT DAILY 30 Days RF: 0 insulin aspart U-100 [Novolog Flexpen U-100 Insulin] 100 unit/mL (3 mL) Insulin Pen 7 unit SUBCUT AC Qty: 30 RF: 0 hydroxyzine pamoate [Vistaril] 50 mg capsule 50 mg PO QID PRN (Reason: itching) 30 Days Qty: 20 RF: 0 Continued glucose 4 gram tablet,chewable 4 gram PO Q15M PRN (Reason: hypoglycemia) Qty: 30 RF: 0 Glucagon Emergency Kit (human) 1 mg recon soln 1 mg subcut DIRECTED RF: 0 oxycodone 5 mg tablet 5 mg PO Q6H PRN (Reason: pain) Qty: 30 RF: 0 insulin lispro [Humalog KwikPen Insulin] 100 unit/mL insulin pen See Rx Instructions .ROUTE .COMPLEX Qty: 0 RF: 0 Discontinued cefdinir 300 mg capsule 300 mg PO BID Qty: 14 RF: 0 Tresiba FlexTouch U-100 100 unit/mL (3 mL) insulin pen 40 unit SUBCUT DAILY RF: 0 Follow up/Referrals: Jimmy Anderson MD [Physician] - Adonis Morris MD [Physician] - Discharge Health Status Multidrug resistant organism: No MDRO Diet/Activity/Treatments Diet: Carb-consistent/Diabetic Activity: as tolerated Other treatments: f/u with Wound Care next week Visit Report/Discharge Packet Instructions: How to Change a Wet-to-dry Wound Dressing Visit Report Forms: Patient Portal/API, Stroke Signs & Symptoms Discharges patient from system. Discharge Date/Time: 10/30/19 14:43
== END 2019-10-30 14:43 | disposition home or self-care (01) | DRG 602 ==
LOC: ED 18:03 → AC 18:24 → ICU 10-29 07:02
PROVIDERS: Nurse Practitioner Family; Admitting Provider Internal Medicine; Emergency Provider Nurse Practitioner; Referring Provider Nurse Practitioner; Visit Provider Internal Medicine
DX: L03.811 Cellulitis of head [any part, except face] (principal); E10.10 Type 1 diabetes mellitus with ketoacidosis without coma; B95.61 Methicillin susceptible Staphylococcus aureus infection as the cause of diseases classified elsewhere; L72.3 Sebaceous cyst; Z79.4 Long term (current) use of insulin; Z91.19 Patient's noncompliance with other medical treatment and regimen
CPT/HCPCS: 36415; 36592; 80048; 80053; 81003; 82009; 82805; 82962; 83036; 83605; 83735; 84100; 84145; 85025; 87040; 93005; 93010; 96361; 96365; 96375; 96376; 99284; 99291; 99292; J1170; J1200; J1642; J1650; J1885; J2405; J3480; J7050

== ENCOUNTER 2019-11-05 07:14 | Inpatient (IN) | payer MEDICAID, OTHER, SELFPAY ==
[2019-10-28 18:40] VITALS: BMI 19.6
[2019-11-05] VITALS (57 sets, daily range): BP systolic 98–172; BP diastolic 56–102; PULSE 73–137; RESP 0–26; TEMP 35.9–37; O2SAT 92–100; BMI 19.8; BMI 17.9
--- NOTE | 2019-11-05 07:24 | ED.GENADULT ---
HPI - General Adult General Chief complaint: Diabetic Problem Stated complaint: thinks she's in dka Time Seen by Provider: 11/05/19 07:21 Source: patient and family Mode of arrival: Wheelchair Limitations: no limitations History of Present Illness HPI narrative: 29-year-old female well known to myself in this department is being a brittle diabetic. On insulin. Here for evaluation of DKA. Patient is here with her mother who states that her symptoms started last evening with vomiting. Her mother was not with her last evening this information was provided by a boyfriend who is not bedside. Patient is known to have multiple episodes of DKA for various reasons to include infections hand indiscretion and lack of insulin. Do not have the entire history as to what happened last evening her what caused the vomiting. Patient states that she is taking her insulin as directed. She states that ?everything hurts ? Related Data Home Medications Medication Instructions Recorded Confirmed Glucagon Emergency Kit (human) 1 mg SUBCUT DIRECTED 02/16/19 11/05/19 Previous Rx's Medication Instructions Recorded glucose 4 gram PO Q15M PRN #30 tab 12/12/18 insulin lispro [Humalog KwikPen See Rx Instructions .ROUTE 03/10/19 Insulin] .COMPLEX #0 ml oxycodone 5 mg PO Q6H PRN #30 tab 10/22/19 hydroxyzine pamoate [Vistaril] 50 mg PO QID PRN 30 Days #20 cap 10/30/19 insulin aspart U-100 [Novolog 7 unit SUBCUT AC #30 ml 10/30/19 Flexpen U-100 Insulin] insulin degludec [Tresiba 50 unit SUBCUT DAILY 30 Days 10/30/19 FlexTouch U-100] Allergies Allergy/AdvReac Type Severity Reaction Status Date / Time abdalla [ABDALLA] Allergy Intermediate Hives, Verified 11/04/19 14:02 pruritus iodine [IODINE] Allergy Intermediate rash, itchy Verified 11/04/19 14:02 morphine Allergy Intermediate Difficulty Verified 11/04/19 14:02 Breathing shellfish derived Allergy Intermediate rash Verified 11/04/19 14:02 [SHELLFISH DERIVED] adhesive [ADHESIVE] Allergy Unknown tape Verified 11/04/19 14:02 latex [LATEX] Allergy Unknown Hives Verified 11/04/19 14:02 Review of Systems Constitutional Constitutional: Reports fatigue, Denies fever(s), Reports lethargy and Reports malaise Eyes Eyes: Denies change in vision ENT Ears, Nose, Mouth, and Throat: Reports disequilibrium and Denies sore throat Cardiovascular Cardiovascular: Denies chest pain, Reports rapid heart rate and Denies dyspnea Respiratory Respiratory: Denies dyspnea Gastrointestinal Gastrointestinal: Reports abdominal pain, Denies change in bowel habits, Reports nausea and Reports vomiting Genitourinary Genitourinary: Denies dysuria Genitourinary: Denies dysuria Musculoskeletal Musculoskeletal: Reports arthralgias, Reports back pain and Reports myalgias Integumentary/Breasts Comments: Wound to the top of her head where the cyst was removed Neurologic Neurologic: Reports behavioral changes, Reports confusion, Reports lack of coordination, Denies seizure-like activity and Reports disequilibrium Psychiatric Psychiatric: Reports behavioral changes and Reports confusion Endocrine Endocrine: Reports fatigue Hematologic/Lymphatic Hematologic/Lymphatic: Denies easy bleeding and Denies easy bruising Allergic/Immunologic Allergic/Immunologic: Denies urticaria Patient History Medical History DKA (diabetic ketoacidoses) (Resolved) History of pyelonephritis (Resolved) Irregular menstrual cycle (Acute) Migraine headache (Chronic) Nephrolithiasis (Resolved) Type 1 diabetes mellitus (Chronic) Surgical History History of ureter stent (Resolved) Hx of local excision of skin lesion (Acute) Status post laser lithotripsy of ureteral calculus (Acute) [place] teeth extracted (Acute) Family History Father In good health Mother Cardiac disease Social History details: Engaged household members: significant other and family Smoking Status: Never smoker alcohol intake: current Smoking Status: Never smoker alcohol intake frequency: holidays/special occasions only Substance Use Type: does not use Exam Initial Vital Signs Initial Vital Signs: Vital Signs Temperature 97.2 F L 11/05/19 07:28 Pulse Rate 133 H 11/05/19 07:28 Respiratory Rate 23 11/05/19 07:28 Blood Pressure 147/102 H 11/05/19 07:28 Pulse Oximetry 100 11/05/19 07:28 Const General: comfortable, disheveled and ill appearing [facility] Head: scalp lesion (Open wound with wet dressing where a cyst was removed) Eyes General: appearance normal, both eyes and all related structures Chest Chest: No tenderness Resp Effort & Inspection: not labored, no respiratory distress and tachypneic Auscultation: clear to auscultation bilaterally Cardio Rate: tachycardic Rhythm: regular rhythm Pulses: radial pulses present GI Inspection: non-distended Palpation: soft and tender (Diffuse without guarding) Skin Other: Three center the top of her scalp with a wet dressing in place without surrounding erythema consistent with stated history of having a cyst removed in this area during her last hospital stay Neuro General: patient awake and moves all extremities Other: Easily arousable new location and her date. Was uncertain of the year. Extrem General: capillary refill normal Psych Appearance: disheveled Scores GCS Alex coma scale eye opening: To sound [place] coma scale verbal response: Confused Alex coma scale motor response: Obey commands Alex coma scale total score: 13 Course Orders Ordered: ED Orders 11/05/19 07:23 EKG-12 Lead Stat 11/05/19 08:07 Acetaminophen Stat Complete Blood Count AUTO DIFF Stat Comprehensive Metabolic Panel Stat Ethanol (ETOH) Stat Ketones (Beta-Hydroxybutyrate) Stat Lactate (Lactic Acid) Stat Lipase Stat Magnesium Stat Phosphorous Stat Test Serum,Qual Stat Procalcitonin Stat Thyroid Stimulating Hormone Stat 11/05/19 08:15 Arterial Blood Gas Stat Urinalysis and Microscopic Stat Urine Drug Screen, Rapid Stat 11/05/19 08:43 Blood Culture Stat 11/05/19 10:19 Basic Metabolic Panel Stat Sodium Chloride (Normal Saline 0.9%) 1,000 mls @ 250 mls/hr IV CONT BLAISE Last Admin: 11/05/19 09:30 Dose: 250 mls/hr Documented by: RMARTIN INSULIN DRIP PREMIX (Myxredlin Drip Premix) 100 unit in 100 mls @ 7.5 mls/hr IV TITRATE BLAISE; Protocol Last Admin: 11/05/19 09:31 Dose: 7.5 ml/hr, 7.5 mls/hr Documented by: DAISYARTCHER Cosigned by: GIRISH Potassium Chloride 40 meq/ (Sodium Chloride) 520 mls @ 130 mls/hr IV NOW ONE Stop: 11/05/19 13:44 Last Admin: 11/05/19 10:04 Dose: 130 mls/hr Documented by: LINDA Cosigned by: GIRISH Sodium Bicarbonate 100 meq/ (Sodium Chloride) 1,100 mls @ 150 mls/hr IV CONT BLAISE Last Admin: 11/05/19 10:03 Dose: 150 mls/hr Documented by: LINDA Discontinued Medications Sodium Chloride (Normal Saline 0.9%) 1,000 mls @ 1,000 mls/hr IV BOLUS ONE Stop: 11/05/19 08:21 Last Infusion: 11/05/19 09:45 Dose: 0 mls/hr Documented by: Admin: 11/05/19 08:16 Dose: 1,000 mls/hr Documented by: LINDA Sodium Bicarbonate 100 meq/ (Dextrose) 1,100 mls @ 150 mls/hr IV CONT BLAISE Last Admin: 11/05/19 10:16 Dose: Not Given Documented by: GIRISH Vital Signs Vital signs: Vital Signs - 8 hr 11/05/19 07:28 11/05/19 08:04 11/05/19 08:30 Temperature 97.2 F L Pulse Rate 133 H 133 H 129 H Respiratory Rate 23 22 19 Blood Pressure 147/102 H 144/97 H Pulse Oximetry 100 98 100 11/05/19 08:52 11/05/19 09:00 11/05/19 09:30 Temperature Pulse Rate 129 H 127 H 124 H Respiratory Rate 24 22 18 Blood Pressure 125/72 128/77 123/74 Pulse Oximetry 11/05/19 10:00 Temperature Pulse Rate 122 H Respiratory Rate 19 Blood Pressure 127/83 Pulse Oximetry Medical Decision Making Medical Records Medical records reviewed: Yes I reviewed the patient's medical records. Lab Data Lab results reviewed: Yes I reviewed the patient's lab results. Result diagrams: 11/05/19 08:07 11/05/19 11:20 Labs: Lab Results 11/05/19 11/05/19 11/05/19 Range/Units 08:07 08:07 08:07 WBC 18.5 H (4.5-11.0) X10^3/uL RBC 4.23 (4.0-5.2) X10^6/uL Hgb 14.1 (12.0-16.0) g/dL Hct 46.4 H (36-46) % MCV 109.6 H D (80-100) fL MCH 33.2 (26-34) PG MCHC 30.3 (30-36) % RDW 14.4 (11.6-14.8) % Plt Count 581 H (150-400) X10^3/uL Neut % (Auto) Not Reportable Lymph % (Auto) Not Reportable Mclean % (Auto) Not Reportable Eos % (Auto) Not Reportable Baso % (Auto) Not Reportable Lymph # (Auto) Not Reportable [place] # (Auto) Not Reportable Baso # (Auto) Not Reportable Total Counted 100 Seg Neutrophils % 63.0 (38-70) % Band Neutrophils % 15.0 H (3-7) % Lymphocytes % (Manual) 16.0 L (25-45) % Atypical Lymphs % 1.0 H ( - 0) % Monocytes % (Manual) 4.0 (2-11) % Basophils % (Manual) 1.0 (0-1) % Neutrophils # (Manual) 16363 H (6444-9237) /uL RBC Morphology Not Reportable Macrocytosis 2+ H ABG pH (7.35-7.45) ABG pCO2 (35-45) mmHg ABG pO2 (80-100) mmHg ABG HCO3 (22-26) mmol/L ABG Total CO2 (21-31) mmol/L ABG O2 Saturation (95-100) % ABG Base Excess (-2-2) mmol/L FiO2 Sodium 144 (137-145) mmol/L Potassium 4.8 (3.4-5.1) mmol/L Chloride 106 (98-107) mmol/L Carbon Dioxide < 5 L* (22-32) mmol/L BUN 18 H (7-17) mg/dL Creatinine 1.21 H (0.52-1.04) mg/dL Estimated GFR 53.4 L (>60) mL/min BUN/Creatinine Ratio 14.9 (6-22) Glucose 949 H* D (70-100) mg/dL Lactate 2.8 H (0.7-2.1) mmol/L Calcium 9.3 (8.4-10.2) mg/dL Phosphorus (2.5-4.5) mg/dL Magnesium (1.6-2.3) mg/dL Total Bilirubin 0.4 (0.2-1.3) mg/dL AST 23 (14-36) IU/L ALT 16 (<35) IU/L Alkaline Phosphatase 194 H D (38-126) U/L Total Protein 7.9 (6.3-8.2) g/dL Albumin 4.7 (3.5-5.0) g/dL Globulin 3.2 (1.7-4.1) g/dL Albumin/Globulin Ratio 1.5 (1.0-2.8) Lipase 77 (23-300) U/L Procalcitonin (<0.5) ng/mL TSH (0.47-4.68) uIU/mL Serum , Qual (Negative) Urine Color Urine Appearance Urine pH (4.5-8.0) Ur Specific [place] (1.000-1.035) Urine Protein (Negative) Urine Glucose (UA) (Negative) g/dL Urine Ketones (NEGATIVE) Urine Occult Blood (Negative) Urine Nitrate (Negative) Urine Bilirubin (NEGATIVE) Urine Urobilinogen (0.2) E.U./dL Ur Leukocyte Esterase (NEGATIVE) Urine RBC (0-5/HPF) Urine WBC (0-5/HPF) Ur Squamous Epith Cells (0-5/HPF) Urine Bacteria (None) Ur Culture Indicated? U Opiates 300ng/mL cut (Negative) Ur Oxycodone Screen (Negative) Urine Methadone Screen (Negative) Acetaminophen < 10 L (10-30) ug/mL Ur Barbiturates Screen (Negative) U Tricyclic Antidepress (Negative) Ur Phencyclidine Scrn (Negative) Ur Amphetamines Screen (Negative) U Methamphetamines Scrn (Negative) Ur MDMA Scrn (Ecstasy) (Negative) U Benzodiazepines Scrn (Negative) Urine Cocaine Screen (Negative) U Marijuana (THC) Screen (Negative) Ethyl Alcohol < 10 ( - 10) mg/dL Ketones 19.54 H (<0.27) mmol/L COVID-19 PCR (Negative) 11/05/19 11/05/19 11/05/19 Range/Units 08:07 08:07 08:07 WBC (4.5-11.0) X10^3/uL RBC (4.0-5.2) X10^6/uL Hgb (12.0-16.0) g/dL Hct (36-46) % MCV (80-100) fL MCH (26-34) PG MCHC (30-36) % RDW (11.6-14.8) % Plt Count (150-400) X10^3/uL Neut % (Auto) Lymph % (Auto) Mclean % (Auto) Eos % (Auto) Baso % (Auto) Lymph # (Auto) [place] # (Auto) Baso # (Auto) Total Counted Seg Neutrophils % (38-70) % Band Neutrophils % (3-7) % Lymphocytes % (Manual) (25-45) % Atypical Lymphs % ( - 0) % Monocytes % (Manual) (2-11) % Basophils % (Manual) (0-1) % Neutrophils # (Manual) (0519-0175) /uL RBC Morphology Macrocytosis ABG pH (7.35-7.45) ABG pCO2 (35-45) mmHg ABG pO2 (80-100) mmHg ABG HCO3 (22-26) mmol/L ABG Total CO2 (21-31) mmol/L ABG O2 Saturation (95-100) % ABG Base Excess (-2-2) mmol/L FiO2 Sodium (137-145) mmol/L Potassium (3.4-5.1) mmol/L Chloride (98-107) mmol/L Carbon Dioxide (22-32) mmol/L BUN (7-17) mg/dL Creatinine (0.52-1.04) mg/dL Estimated GFR (>60) mL/min BUN/Creatinine Ratio (6-22) Glucose (70-100) mg/dL Lactate (0.7-2.1) mmol/L Calcium (8.4-10.2) mg/dL Phosphorus 8.9 H D (2.5-4.5) mg/dL Magnesium 2.6 H (1.6-2.3) mg/dL Total Bilirubin (0.2-1.3) mg/dL AST (14-36) IU/L ALT (<35) IU/L Alkaline Phosphatase (38-126) U/L Total Protein (6.3-8.2) g/dL Albumin (3.5-5.0) g/dL Globulin (1.7-4.1) g/dL Albumin/Globulin Ratio (1.0-2.8) Lipase (23-300) U/L Procalcitonin 0.18 (<0.5) ng/mL TSH 2.38 (0.47-4.68) uIU/mL Serum , Qual Negative (Negative) Urine Color Urine Appearance Urine pH (4.5-8.0) Ur Specific [place] (1.000-1.035) Urine Protein (Negative) Urine Glucose (UA) (Negative) g/dL Urine Ketones (NEGATIVE) Urine Occult Blood (Negative) Urine Nitrate (Negative) Urine Bilirubin (NEGATIVE) Urine Urobilinogen (0.2) E.U./dL Ur Leukocyte Esterase (NEGATIVE) Urine RBC (0-5/HPF) Urine WBC (0-5/HPF) Ur Squamous Epith Cells (0-5/HPF) Urine Bacteria (None) Ur Culture Indicated? U Opiates 300ng/mL cut (Negative) Ur Oxycodone Screen (Negative) Urine Methadone Screen (Negative) Acetaminophen (10-30) ug/mL Ur Barbiturates Screen (Negative) U Tricyclic Antidepress (Negative) Ur Phencyclidine Scrn (Negative) Ur Amphetamines Screen (Negative) U Methamphetamines Scrn (Negative) Ur MDMA Scrn (Ecstasy) (Negative) U Benzodiazepines Scrn (Negative) Urine Cocaine Screen (Negative) U Marijuana (THC) Screen (Negative) Ethyl Alcohol ( - 10) mg/dL Ketones (<0.27) mmol/L COVID-19 PCR (Negative) 11/05/19 11/05/19 11/05/19 Range/Units 08:15 08:15 08:15 WBC (4.5-11.0) X10^3/uL RBC (4.0-5.2) X10^6/uL Hgb (12.0-16.0) g/dL Hct (36-46) % MCV (80-100) fL MCH (26-34) PG MCHC (30-36) % RDW (11.6-14.8) % Plt Count (150-400) X10^3/uL Neut % (Auto) Lymph % (Auto) [place]clean % (Auto) Eos % (Auto) Baso % (Auto) Lymph # (Auto) [place] # (Auto) Baso # (Auto) Total Counted Seg Neutrophils % (38-70) % Band Neutrophils % (3-7) % Lymphocytes % (Manual) (25-45) % Atypical Lymphs % ( - 0) % Monocytes % (Manual) (2-11) % Basophils % (Manual) (0-1) % Neutrophils # (Manual) (1453-7969) /uL RBC Morphology Macrocytosis ABG pH 6.87 L* (7.35-7.45) ABG pCO2 8.9 L* (35-45) mmHg ABG pO2 141 H (80-100) mmHg ABG HCO3 2 L (22-26) mmol/L ABG Total CO2 < 5 L (21-31) mmol/L ABG O2 Saturation 96 (95-100) % ABG Base Excess < -30.0 L (-2-2) mmol/L FiO2 21 Sodium (137-145) mmol/L Potassium (3.4-5.1) mmol/L Chloride (98-107) mmol/L Carbon Dioxide (22-32) mmol/L BUN (7-17) mg/dL Creatinine (0.52-1.04) mg/dL Estimated GFR (>60) mL/min BUN/Creatinine Ratio (6-22) Glucose (70-100) mg/dL Lactate (0.7-2.1) mmol/L Calcium (8.4-10.2) mg/dL Phosphorus (2.5-4.5) mg/dL Magnesium (1.6-2.3) mg/dL Total Bilirubin (0.2-1.3) mg/dL AST (14-36) IU/L ALT (<35) IU/L Alkaline Phosphatase (38-126) U/L Total Protein (6.3-8.2) g/dL Albumin (3.5-5.0) g/dL Globulin (1.7-4.1) g/dL Albumin/Globulin Ratio (1.0-2.8) Lipase (23-300) U/L Procalcitonin (<0.5) ng/mL TSH (0.47-4.68) uIU/mL Serum , Qual (Negative) Urine Color Straw Urine Appearance Clear Urine pH 5.0 (4.5-8.0) Ur Specific [place] 1.015 (1.000-1.035) Urine Protein Trace H (Negative) Urine Glucose (UA) 2+ H (Negative) g/dL Urine Ketones 3+ H (NEGATIVE) Urine Occult Blood Trace-lysed (Negative) Urine Nitrate Negative (Negative) Urine Bilirubin Negative (NEGATIVE) Urine Urobilinogen 0.2 (0.2) E.U./dL Ur Leukocyte Esterase Negative (NEGATIVE) Urine RBC 0-1/hpf (0-5/HPF) Urine WBC 1-5/hpf (0-5/HPF) Ur Squamous Epith Cells 1-5 /hpf (0-5/HPF) Urine Bacteria Few (2-10) H (None) Ur Culture Indicated? Cult not indicated U Opiates 300ng/mL cut Negative (Negative) Ur Oxycodone Screen Negative (Negative) Urine Methadone Screen Negative (Negative) Acetaminophen (10-30) ug/mL Ur Barbiturates Screen Negative (Negative) U Tricyclic Antidepress Negative (Negative) Ur Phencyclidine Scrn Negative (Negative) Ur Amphetamines Screen Negative (Negative) U Methamphetamines Scrn Negative (Negative) Ur MDMA Scrn (Ecstasy) Negative (Negative) U Benzodiazepines Scrn Negative (Negative) Urine Cocaine Screen Negative (Negative) U Marijuana (THC) Screen Negative (Negative) Ethyl Alcohol ( - 10) mg/dL Ketones (<0.27) mmol/L COVID-19 PCR (Negative) 11/05/19 11/05/19 Range/Units 08:20 08:25 WBC (4.5-11.0) X10^3/uL RBC (4.0-5.2) X10^6/uL Hgb (12.0-16.0) g/dL Hct (36-46) % MCV (80-100) fL MCH (26-34) PG MCHC (30-36) % RDW (11.6-14.8) % Plt Count (150-400) X10^3/uL Neut % (Auto) Lymph % (Auto) [place] % (Auto) Eos % (Auto) Baso % (Auto) Lymph # (Auto) [place] # (Auto) Baso # (Auto) Total Counted Seg Neutrophils % (38-70) % Band Neutrophils % (3-7) % Lymphocytes % (Manual) (25-45) % Atypical Lymphs % ( - 0) % Monocytes % (Manual) (2-11) % Basophils % (Manual) (0-1) % Neutrophils # (Manual) (9701-2261) /uL RBC Morphology Macrocytosis ABG pH (7.35-7.45) ABG pCO2 (35-45) mmHg ABG pO2 (80-100) mmHg ABG HCO3 (22-26) mmol/L ABG Total CO2 (21-31) mmol/L ABG O2 Saturation (95-100) % ABG Base Excess (-2-2) mmol/L FiO2 Sodium (137-145) mmol/L Potassium (3.4-5.1) mmol/L Chloride (98-107) mmol/L Carbon Dioxide (22-32) mmol/L BUN (7-17) mg/dL Creatinine (0.52-1.04) mg/dL Estimated GFR (>60) mL/min BUN/Creatinine Ratio (6-22) Glucose (70-100) mg/dL Lactate (0.7-2.1) mmol/L Calcium (8.4-10.2) mg/dL Phosphorus (2.5-4.5) mg/dL Magnesium (1.6-2.3) mg/dL Total Bilirubin (0.2-1.3) mg/dL AST (14-36) IU/L ALT (<35) IU/L Alkaline Phosphatase (38-126) U/L Total Protein (6.3-8.2) g/dL Albumin (3.5-5.0) g/dL Globulin (1.7-4.1) g/dL Albumin/Globulin Ratio (1.0-2.8) Lipase (23-300) U/L Procalcitonin (<0.5) ng/mL TSH (0.47-4.68) uIU/mL Serum , Qual (Negative) Urine Color Urine Appearance Urine pH (4.5-8.0) Ur Specific [place] (1.000-1.035) Urine Protein (Negative) Urine Glucose (UA) (Negative) g/dL Urine Ketones (NEGATIVE) Urine Occult Blood (Negative) Urine Nitrate (Negative) Urine Bilirubin (NEGATIVE) Urine Urobilinogen (0.2) E.U./dL Ur Leukocyte Esterase (NEGATIVE) Urine RBC (0-5/HPF) Urine WBC (0-5/HPF) Ur Squamous Epith Cells (0-5/HPF) Urine Bacteria (None) Ur Culture Indicated? U Opiates 300ng/mL cut (Negative) Ur Oxycodone Screen (Negative) Urine Methadone Screen (Negative) Acetaminophen (10-30) ug/mL Ur Barbiturates Screen (Negative) U Tricyclic Antidepress (Negative) Ur Phencyclidine Scrn (Negative) Ur Amphetamines Screen (Negative) U Methamphetamines Scrn (Negative) Ur MDMA Scrn (Ecstasy) (Negative) U Benzodiazepines Scrn (Negative) Urine Cocaine Screen (Negative) U Marijuana (THC) Screen (Negative) Ethyl Alcohol ( - 10) mg/dL Ketones (<0.27) mmol/L COVID-19 PCR Negative Cancelled (Negative) ECG Data Attestation: I personally reviewed and interpreted this ECG as follows: Prior ECG tracings: not available for review Interpretation: Sinus tachycardia Ventricular rate of 134 Normal axis Normal QRS Normal QTC No ST T wave changes MDM Narrative Medical decision making narrative: Known diabetic. Symptoms started within the past 24 hours per report of family or bedside. Patient is arousable and does know where she is and her date but did not know the year. Maintaining her own respirations however was tachypneic. Had anion gap of 33. Acidotic on the ABG. Potassium 4.8. Insulin drip started at 1.5 units/kilogram per hour. Patient also started on a bicarb drip given pH of 6.8. Will hold on any antibiotics for now as we do not have any specific source of an infection. Her test was negative. Discussed the case with Dr. Weinberg with internal medicine who will accept. He recommended potassium replenishment which was ordered. Will admit for further evaluation and treatment. Critical Care Time Critical Care Time Critical Care Time: Yes Total Critical Care Time: 45 Attestation: The high probability of a clinically significant, sudden or life threatening deterioration of the endocrine system(s) required my full and direct attention, intervention and personal management. The aggregate critical care time was 45 minutes. This time is in addition to time spent performing reported procedures but includes the following: [] Data Review and interpretation [] Patient assessment and monitoring of vital signs [] Documentation [] Medication orders and management Discharge Plan Departure Patient Disposition: Admitted As Inpatient Clinical Impression: DKA (diabetic ketoacidoses) Qualifiers: Diabetes mellitus type: type 1 Diabetes mellitus complication detail: without coma Qualified Code(s): E10.10 - Type 1 diabetes mellitus with ketoacidosis without coma Diabetes mellitus type I Qualifiers: Diabetes mellitus complication status: with ketoacidosis Diabetes mellitus complication detail: without coma Qualified Code(s): E10.10 - Type 1 diabetes mellitus with ketoacidosis without coma Admit Date/Time: 11/05/19 10:16 Admit Provider: Julio Cesar Weinberg
[2019-11-05] MEDS: SODIUM CHLORIDE 0.9% 1,000 ML 1000 ML IV (08:16)
--- NOTE | 2019-11-05 08:17 | PC.NURSE ---
This RN 2 unsuccessful IV attempts, Chi RN 2 unsuccessful IV attempts, and Vibha RN 2 unsuccessful attempts. Yu OMALLEY RN Started Ultrasound IV.
[2019-11-05 08:41] LABS: Lactate (Lactic Acid) 2.8 mmol/L (0.7-2.1)
[2019-11-05 08:43] LABS: Appearance Urine UA CLEAR; Bilirubin Urine UA NEGATIVE (NEGATIVE); Glucose Urine UA 2+ g/dL (Negative); Ketones Urine UA 3+ (NEGATIVE); Leukocyte Esterase Urine UA NEGATIVE (NEGATIVE); Nitrite Urine UA NEGATIVE (Negative); Occult Blood Urine UA TRACE-LYSED (Negative); Protein Urine UA TRACE (Negative); Specific Gravity Urine UA 1.015 (1.000-1.035); Urobilinogen Urine UA 0.2 E.U./dL (0.2)
[2019-11-05 08:46] LABS: Pregnancy Test Serum,Qual Negative (Negative)
[2019-11-05 08:50] LABS: Color Urine UA Straw
[2019-11-05 08:52] LABS: UR Morphine/Opiate cutoff 300 Negative (Negative); Ur Creatinine Normal (Normal); Ur Specific Gravity Normal (Normal); Urine Amphetamines Negative (Negative); Urine Barbiturates Negative (Negative); Urine Benzodiazepines Negative (Negative); Urine Cocaine Negative (Negative); Urine MDMA Negative (Negative); Urine Methadone Negative (Negative); Urine Methamphetamines Negative (Negative); Urine Oxycodone Negative (Negative); Urine Phencyclidine Negative (Negative); Urine Tetrahydrocannabinol Negative (Negative); Urine Tricyclic Antidepressant Negative (Negative); Urine pH Normal (Normal)
[2019-11-05 08:58] LABS: Bacteria Urine Few (2-10); Culture Indicated Urine Cult Not Indicated; RBC Urine 0-1/HPF (0-5/HPF); Squamous Epithelial Cell Urine 1-5 /HPF (0-5/HPF); WBC Urine 1-5/HPF (0-5/HPF)
[2019-11-05 09:00] LABS: Add Manual Diff / Slide Review YES; Hematocrit 46.4 % (36-46); Hemoglobin 14.1 g/dL (12.0-16.0); Mean Corpuscular HGB Conc 30.3 % (30-36); Mean Corpuscular Hemoglobin 33.2 PG (26-34); Mean Corpuscular Volume 109.6 fL (80-100); Platelet Count 581 X10^3/uL (150-400); Red Blood Cell Count 4.23 X10^6/uL (4.0-5.2); Red Cell Distribution Width 14.4 % (11.6-14.8); White Blood Cell Count 18.5 X10^3/uL (4.5-11.0)
[2019-11-05 09:01] LABS: Procalcitonin 0.18 ng/mL (<0.5)
[2019-11-05 09:08] LABS: HCO3 ABG 2 mmol/L (22-26); PCO2 ABG 8.9 mmHg (35-45); PO2 ABG 141 mmHg (80-100); TCO2 ABG < 5 mmol/L (21-31); pH ABG 6.87 (7.35-7.45)
[2019-11-05 09:09] LABS: Base Excess ABG < -30.0 mmol/L (-2-2); Fractionated Inspired Oxygen 21; Oxygen Saturation ABG 96 % (95-100)
[2019-11-05 09:10] LABS: Neutrophils Absolute Manual 14430 /uL (3000-5900); Total Cells Counted 100
[2019-11-05 09:11] LABS: Macrocytosis 2+
[2019-11-05 09:12] LABS: Acetaminophen < 10 ug/mL (10-30); Alanine Aminotransferase 16 IU/L (<35); Albumin 4.7 g/dL (3.5-5.0); Albumin Globulin Ratio 1.5 (1.0-2.8); Alkaline Phosphatase 194 U/L (38-126); Aspartate Aminotransferase 23 IU/L (14-36); BUN Creatinine Ratio 14.9 (6-22); Bilirubin Total 0.4 mg/dL (0.2-1.3); Blood Urea Nitrogen 18 mg/dL (7-17); Calcium 9.3 mg/dL (8.4-10.2); Chloride 106 mmol/L (98-107); Estimated Glomerular Filt Rate 53.4 mL/min (>60); Ethanol (ETOH) < 10 mg/dL; Globulin 3.2 g/dL (1.7-4.1); HEMOLYSIS < 15 (0-50); Lipase 77 U/L (23-300); Potassium 4.8 mmol/L (3.4-5.1); Sodium 144 mmol/L (137-145); Total Protein 7.9 g/dL (6.3-8.2)
[2019-11-05 09:21] LABS: Glucose 949 mg/dL (70-100)
[2019-11-05 09:27] LABS: Carbon Dioxide < 5 mmol/L (22-32)
[2019-11-05] MEDS: SODIUM CHLORIDE 0.9% 1,000 ML 250 ML IV (09:30)
[2019-11-05] MEDS: INSULIN DRIP PREMIX 100 UNIT/100 ML PLAST..BAG 7.5 UNIT IV (09:31)
[2019-11-05 09:38] LABS: Magnesium 2.6 mg/dL (1.6-2.3)
[2019-11-05 09:41] LABS: COVID19 -Nasal RAPID Negative (Negative)
[2019-11-05 09:47] LABS: Phosphorous 8.9 mg/dL (2.5-4.5)
[2019-11-05] MEDS: SODIUM BICARB IV (10:03)
[2019-11-05] MEDS: SODIUM CHLORIDE 0.45% IV (10:03)
[2019-11-05] MEDS: POTASSIUM CHLORIDE 40 MEQ in SODIUM CHLORIDE 0.9% 500 ML 130 ML IV (10:04)
[2019-11-05 10:11] LABS: Thyroid Stimulating Hormone 2.38 uIU/mL (0.47-4.68)
[2019-11-05 10:18] LABS: Reflexed Lactate in 2 Hours Y
[2019-11-05 10:36] LABS: Ketones (Beta-Hydroxybutyrate) 19.54 mmol/L (<0.27)
[2019-11-05 10:43] LABS: BUN Creatinine Ratio 15.5 (6-22); Blood Urea Nitrogen 18 mg/dL (7-17); Chloride 110 mmol/L (98-107); HEMOLYSIS 16 (0-50); Potassium 4.6 mmol/L (3.4-5.1); Sodium 146 mmol/L (137-145)
[2019-11-05 10:56] LABS: Carbon Dioxide < 5 mmol/L (22-32); Glucose 867 mg/dL (70-100)
[2019-11-05 10:56] LABS: Lactate 2HR (Lactic Acid Rflx) 2.6 mmol/L (0.7-2.1)
[2019-11-05 11:45] LABS: BUN Creatinine Ratio 15.3 (6-22); Blood Urea Nitrogen 18 mg/dL (7-17); Calcium 9.1 mg/dL (8.4-10.2); Chloride 113 mmol/L (98-107); Estimated Glomerular Filt Rate 54.9 mL/min (>60); Potassium 4.8 mmol/L (3.4-5.1); Sodium 147 mmol/L (137-145)
[2019-11-05 11:52] LABS: HEMOLYSIS 34 (0-50)
[2019-11-05 11:57] LABS: Carbon Dioxide < 5 mmol/L (22-32); Glucose 765 mg/dL (70-100)
[2019-11-05] MEDS: HYDROMORPHONE 0.5 MG INJ IV (12:49)
--- NOTE | 2019-11-05 12:51 | P.HP_ITS ---
History of Present Illness History of Present Illness Date Patient Seen: 11/05/19 Time Patient Seen: 12:51 Chief complaint: thinks she's in dka Narrative: Ms. Sarabjit Jimenes is a 28-year-old female patient with a history significant for type 1 diabetes, migraines, irregular menstruation and prior pyelolithiasis who presented to the ER today with lethargy, nausea, vomiting, and abdominal pain. She has been admitted multiple times over the past few months for DKA. She states she started feeling ill yesterday with mild abdominal pain, nausea, and vomiting twice. This did not improve overnight and came to the ER this morning thinking she was in DKA. She endorses continued compliance with her insulin, although most recently her A1c was 14 and glucoses are generally controlled while admitted. She has been following with the voucher examiner. She had an abscess removed during the last admission by Dr. Anderson and has been receiving packing changes every other day. In the emergency room, patient was very pale, tachycardic into the 130s and tachypneic, but normotensive and afebrile. She was saturating well on room air. CV she showed a leukocytosis of 18.5, and a platelet count of 581. Blood gas showed a pH of 6.87, with a pCO2 of 8.9, a bicarb of 2. Chemistries showed a sodium of 147 with a glucose of 765. Liver enzymes were unremarkable. Patient did have a lactate to 2.8 which improved to 2.6 after initial fluid bolus. Urine was negative. Urinalysis showed no evidence of infection did show glucose and ketones. Serum ketones were also elevated. Urine drug screen was negative. COVID-19 testing was also negative. Patient was admitted to the ICU for further management of DKA Patient History Medical History DKA (diabetic ketoacidoses) (Resolved) History of pyelonephritis (Resolved) Irregular menstrual cycle (Acute) Migraine headache (Chronic) Nephrolithiasis (Resolved) Type 1 diabetes mellitus (Chronic) Surgical History History of ureter stent (Resolved) Hx of local excision of skin lesion (Acute) Status post laser lithotripsy of ureteral calculus (Acute) Arrey teeth extracted (Acute) Family & Social History Family History Father In good health Mother Cardiac disease Social History: household members significant other,family Safety & Behavioral: Feels Safe in Current Unwilling to Answer Environment Been Physically Hurt or Unwilling to Answer Threatened By a Person Tobacco & Substance use: Smoking Status Never smoker alcohol intake current alcohol intake frequency holiday/special occasion Substance Use Type does not use Meds Home Medications and Allergies Home Medications Medication Instructions Recorded Confirmed Type glucose 4 gram PO Q15M PRN #30 tab 12/12/18 11/05/19 Rx Glucagon Emergency Kit (human) 1 mg SUBCUT DIRECTED 02/16/19 11/05/19 History insulin lispro [Humalog KwikPen See Rx Instructions .ROUTE 03/10/19 11/05/19 Rx Insulin] .COMPLEX #0 ml oxycodone 5 mg PO Q6H PRN #30 tab 10/22/19 11/05/19 Rx hydroxyzine pamoate [Vistaril] 50 mg PO QID PRN 30 Days #20 cap 10/30/19 11/05/19 Rx insulin aspart U-100 [Novolog 7 unit SUBCUT AC #30 ml 10/30/19 11/05/19 Rx Flexpen U-100 Insulin] insulin degludec [Tresiba 50 unit SUBCUT DAILY 30 Days 10/30/19 11/05/19 Rx FlexTouch U-100] Allergies Allergy/AdvReac Type Severity Reaction Status Date / Time abdalla [ABDALLA] Allergy Intermediate Hives, Verified 11/04/19 14:02 pruritus iodine [IODINE] Allergy Intermediate rash, itchy Verified 11/04/19 14:02 morphine Allergy Intermediate Difficulty Verified 11/04/19 14:02 Breathing shellfish derived Allergy Intermediate rash Verified 11/04/19 14:02 [SHELLFISH DERIVED] adhesive [ADHESIVE] Allergy Unknown tape Verified 11/04/19 14:02 latex [LATEX] Allergy Unknown Hives Verified 11/04/19 14:02 Review of Systems Review of Systems Narrative: All other systems reviewed with the patient and are negative unless otherwise stated. Exam Vital Signs (past 8 hours): - 11/05/19 07:28 11/05/19 08:04 11/05/19 08:30 Temperature 97.2 F L Pulse Rate 133 H 133 H 129 H Respiratory Rate 23 22 19 Blood Pressure 147/102 H 144/97 H Pulse Oximetry 100 98 100 11/05/19 08:52 11/05/19 09:00 11/05/19 09:30 Temperature Pulse Rate 129 H 127 H 124 H Respiratory Rate 24 22 18 Blood Pressure 125/72 128/77 123/74 Pulse Oximetry 11/05/19 10:00 11/05/19 10:30 11/05/19 11:00 Temperature Pulse Rate 122 H 126 H 128 H Respiratory Rate 19 0 L 19 Blood Pressure 127/83 116/80 124/78 Pulse Oximetry 100 100 11/05/19 11:30 11/05/19 12:46 Temperature 97.0 F L Pulse Rate 128 H 133 H Respiratory Rate 20 26 H Blood Pressure 131/83 123/84 Pulse Oximetry 99 100 Oxygen Delivery Method Room Air Oxygen Flow Rate 0 Narrative Exam Narrative: GENERAL APPEARANCE: Acutely ill-appearing young female, pale. Slowed speech and cognition compared to baseline. SKIN: Inspection of the skin reveals no rashes, ulcerations or petechiae. Tattoos are present. HEENT: Normocephalic atraumatic, extraocular muscles are intact, oropharynx is clear and mucous membranes are moist, neck is supple without adenopathy. There is a dried dressing on the superior aspect of her head in surgical wound no active purulence and minimal surrounding erythema. NECK: Supple and symmetric. There was no thyroid enlargement, and no tenderness, or masses were felt. CHEST: Normal AP diameter and normal contour without any kyphoscoliosis. LUNGS: Auscultation of the lungs revealed no wheezes, rhonchi, or rales. CARDIOVASCULAR: There was a regular rate and rhythm without any murmurs, ga llops, rubs. Peripheral pulses were 2+ and symmetric. ABDOMEN: Soft, diffusely tender but minimally without guarding or rebound, nondistended. No ascites was noted. MUSCULOSKELETAL: There was no tenderness or effusions noted. Muscle strength and tone were normal. EXTREMITIES: No cyanosis, clubbing or edema. NEUROLOGIC: Alert and oriented x 3. Slowed and somewhat lethargic. Strength is +5/5 in the Upper Extremities and Lower Extremities Bilaterally. Sensation to touch was normal. Objective ECG Impression: Sinus tachycardia without evidence of active ischemia Labs Result Diagrams: 11/05/19 08:07 11/05/19 11:20 Labs: Laboratory Results - last 24 hr 11/05/19 11/05/19 11/05/19 08:07 08:07 08:07 WBC 18.5 H RBC 4.23 Hgb 14.1 Hct 46.4 H MCV 109.6 H D MCH 33.2 MCHC 30.3 RDW 14.4 Plt Count 581 H Neut % (Auto) Not Reportable Lymph % (Auto) Not Reportable [place] % (Auto) Not Reportable Eos % (Auto) Not Reportable Baso % (Auto) Not Reportable Lymph # (Auto) Not Reportable [place] # (Auto) Not Reportable Baso # (Auto) Not Reportable Total Counted 100 Seg Neutrophils % 63.0 Band Neutrophils % 15.0 H Lymphocytes % (Manual) 16.0 L Atypical Lymphs % 1.0 H Monocytes % (Manual) 4.0 Basophils % (Manual) 1.0 Neutrophils # (Manual) 90999 H RBC Morphology Not Reportable Macrocytosis 2+ H ABG pH ABG pCO2 ABG pO2 ABG HCO3 ABG Total CO2 ABG O2 Saturation ABG Base Excess FiO2 Sodium 144 Potassium 4.8 Chloride 106 Carbon Dioxide < 5 L* BUN 18 H Creatinine 1.21 H Estimated GFR 53.4 L BUN/Creatinine Ratio 14.9 Glucose 949 H* D Lactate 2.8 H Calcium 9.3 Phosphorus Magnesium Total Bilirubin 0.4 AST 23 ALT 16 Alkaline Phosphatase 194 H D Total Protein 7.9 Albumin 4.7 Globulin 3.2 Albumin/Globulin Ratio 1.5 Lipase 77 Procalcitonin TSH Serum , Qual Urine Color Urine Appearance Urine pH Ur Specific [place] Urine Protein Urine Glucose (UA) Urine Ketones Urine Occult Blood Urine Nitrate Urine Bilirubin Urine Urobilinogen Ur Leukocyte Esterase Urine RBC Urine WBC Ur Squamous Epith Cells Urine Bacteria Ur Culture Indicated? U Opiates 300ng/mL cut Ur Oxycodone Screen Urine Methadone Screen Acetaminophen < 10 L Ur Barbiturates Screen U Tricyclic Antidepress Ur Phencyclidine Scrn Ur Amphetamines Screen U Methamphetamines Scrn Ur MDMA Scrn (Ecstasy) U Benzodiazepines Scrn Urine Cocaine Screen U Marijuana (THC) Screen Ethyl Alcohol < 10 Ketones 19.54 H COVID-19 PCR 11/05/19 11/05/19 11/05/19 08:07 08:07 08:07 WBC RBC Hgb Hct MCV MCH MCHC RDW Plt Count Neut % (Auto) Lymph % (Auto) [place] % (Auto) Eos % (Auto) Baso % (Auto) Lymph # (Auto) [place] # (Auto) Baso # (Auto) Total Counted Seg Neutrophils % Band Neutrophils % Lymphocytes % (Manual) Atypical Lymphs % Monocytes % (Manual) Basophils % (Manual) Neutrophils # (Manual) RBC Morphology Macrocytosis ABG pH ABG pCO2 ABG pO2 ABG HCO3 ABG Total CO2 ABG O2 Saturation ABG Base Excess FiO2 Sodium Potassium Chloride Carbon Dioxide BUN Creatinine Estimated GFR BUN/Creatinine Ratio Glucose Lactate Calcium Phosphorus 8.9 H D Magnesium 2.6 H Total Bilirubin AST ALT Alkaline Phosphatase Total Protein Albumin Globulin Albumin/Globulin Ratio Lipase Procalcitonin 0.18 TSH 2.38 Serum , Qual Negative Urine Color Urine Appearance Urine pH Ur Specific [place] Urine Protein Urine Glucose (UA) Urine Ketones Urine Occult Blood Urine Nitrate Urine Bilirubin Urine Urobilinogen Ur Leukocyte Esterase Urine RBC Urine WBC Ur Squamous Epith Cells Urine Bacteria Ur Culture Indicated? U Opiates 300ng/mL cut Ur Oxycodone Screen Urine Methadone Screen Acetaminophen Ur Barbiturates Screen U Tricyclic Antidepress Ur Phencyclidine Scrn Ur Amphetamines Screen U Methamphetamines Scrn Ur MDMA Scrn (Ecstasy) U Benzodiazepines Scrn Urine Cocaine Screen U Marijuana (THC) Screen Ethyl Alcohol Ketones COVID-19 PCR 11/05/19 11/05/19 11/05/19 08:15 08:15 08:15 WBC RBC Hgb Hct MCV MCH MCHC RDW Plt Count Neut % (Auto) Lymph % (Auto) [place] % (Auto) Eos % (Auto) Baso % (Auto) Lymph # (Auto) [place] # (Auto) Baso # (Auto) Total Counted Seg Neutrophils % Band Neutrophils % Lymphocytes % (Manual) Atypical Lymphs % Monocytes % (Manual) Basophils % (Manual) Neutrophils # (Manual) RBC Morphology Macrocytosis ABG pH 6.87 L* ABG pCO2 8.9 L* ABG pO2 141 H ABG HCO3 2 L ABG Total CO2 < 5 L ABG O2 Saturation 96 ABG Base Excess < -30.0 L FiO2 21 Sodium Potassium Chloride Carbon Dioxide BUN Creatinine Estimated GFR BUN/Creatinine Ratio Glucose Lactate Calcium Phosphorus Magnesium Total Bilirubin AST ALT Alkaline Phosphatase Total Protein Albumin Globulin Albumin/Globulin Ratio Lipase Procalcitonin TSH Serum , Qual Urine Color Straw Urine Appearance Clear Urine pH 5.0 Ur Specific [place] 1.015 Urine Protein Trace H Urine Glucose (UA) 2+ H Urine Ketones 3+ H Urine Occult Blood Trace-lysed Urine Nitrate Negative Urine Bilirubin Negative Urine Urobilinogen 0.2 Ur Leukocyte Esterase Negative Urine RBC 0-1/hpf Urine WBC 1-5/hpf Ur Squamous Epith Cells 1-5 /hpf Urine Bacteria Few (2-10) H Ur Culture Indicated? Cult not indicated U Opiates 300ng/mL cut Negative Ur Oxycodone Screen Negative Urine Methadone Screen Negative Acetaminophen Ur Barbiturates Screen Negative U Tricyclic Antidepress Negative Ur Phencyclidine Scrn Negative Ur Amphetamines Screen Negative U Methamphetamines Scrn Negative Ur MDMA Scrn (Ecstasy) Negative U Benzodiazepines Scrn Negative Urine Cocaine Screen Negative U Marijuana (THC) Screen Negative Ethyl Alcohol Ketones COVID-19 PCR 11/05/19 11/05/19 11/05/19 08:20 08:25 10:19 WBC RBC Hgb Hct MCV MCH MCHC RDW Plt Count Neut % (Auto) Lymph % (Auto) [place] % (Auto) Eos % (Auto) Baso % (Auto) Lymph # (Auto) [place] # (Auto) Baso # (Auto) Total Counted Seg Neutrophils % Band Neutrophils % Lymphocytes % (Manual) Atypical Lymphs % Monocytes % (Manual) Basophils % (Manual) Neutrophils # (Manual) RBC Morphology Macrocytosis ABG pH ABG pCO2 ABG pO2 ABG HCO3 ABG Total CO2 ABG O2 Saturation ABG Base Excess FiO2 Sodium 146 H Potassium 4.6 Chloride 110 H Carbon Dioxide < 5 L* BUN 18 H Creatinine 1.16 H Estimated GFR 56.0 L BUN/Creatinine Ratio 15.5 Glucose 867 H* Lactate Calcium 9.0 Phosphorus Magnesium Total Bilirubin AST ALT Alkaline Phosphatase Total Protein Albumin Globulin Albumin/Globulin Ratio Lipase Procalcitonin TSH Serum , Qual Urine Color Urine Appearance Urine pH Ur Specific [place] Urine Protein Urine Glucose (UA) Urine Ketones Urine Occult Blood Urine Nitrate Urine Bilirubin Urine Urobilinogen Ur Leukocyte Esterase Urine RBC Urine WBC Ur Squamous Epith Cells Urine Bacteria Ur Culture Indicated? U Opiates 300ng/mL cut Ur Oxycodone Screen Urine Methadone Screen Acetaminophen Ur Barbiturates Screen U Tricyclic Antidepress Ur Phencyclidine Scrn Ur Amphetamines Screen U Methamphetamines Scrn Ur MDMA Scrn (Ecstasy) U Benzodiazepines Scrn Urine Cocaine Screen U Marijuana (THC) Screen Ethyl Alcohol Ketones COVID-19 PCR Negative Cancelled 11/05/19 11/05/19 10:38 11:20 WBC RBC Hgb Hct MCV MCH MCHC RDW Plt Count Neut % (Auto) Lymph % (Auto) [place] % (Auto) Eos % (Auto) Baso % (Auto) Lymph # (Auto) [place] # (Auto) Baso # (Auto) Total Counted Seg Neutrophils % Band Neutrophils % Lymphocytes % (Manual) Atypical Lymphs % Monocytes % (Manual) Basophils % (Manual) Neutrophils # (Manual) RBC Morphology Macrocytosis ABG pH ABG pCO2 ABG pO2 ABG HCO3 ABG Total CO2 ABG O2 Saturation ABG Base Excess FiO2 Sodium 147 H Potassium 4.8 Chloride 113 H Carbon Dioxide < 5 L* BUN 18 H Creatinine 1.18 H Estimated GFR 54.9 L BUN/Creatinine Ratio 15.3 Glucose 765 H* Lactate 2.6 H Calcium 9.1 Phosphorus Magnesium Total Bilirubin AST ALT Alkaline Phosphatase Total Protein Albumin Globulin Albumin/Globulin Ratio Lipase Procalcitonin TSH Serum , Qual Urine Color Urine Appearance Urine pH Ur Specific [place] Urine Protein Urine Glucose (UA) Urine Ketones Urine Occult Blood Urine Nitrate Urine Bilirubin Urine Urobilinogen Ur Leukocyte Esterase Urine RBC Urine WBC Ur Squamous Epith Cells Urine Bacteria Ur Culture Indicated? U Opiates 300ng/mL cut Ur Oxycodone Screen Urine Methadone Screen Acetaminophen Ur Barbiturates Screen U Tricyclic Antidepress Ur Phencyclidine Scrn Ur Amphetamines Screen U Methamphetamines Scrn Ur MDMA Scrn (Ecstasy) U Benzodiazepines Scrn Urine Cocaine Screen U Marijuana (THC) Screen Ethyl Alcohol Ketones COVID-19 PCR Assessment & Plan Assessment & Plan narrative: Ms. Sarabjit Jimenes is a 28-year-old female patient with a history significant for type 1 diabetes, migraines, irregular menstruation and prior pyelolithiasis who presents to the ER with nausea, vomiting, vague abdominal pain and fatigue. She is admitted with DKA to the intensive care unit. 1. Type 1 diabetes with diabetic ketoacidosis, acute, present on admission -patient with presenting VBG of pH 6.87, bicarb of <5. Appropriately compensated with PCO2 of 8.9. AG of >30. LA mildly elevated as well on admission at 2.8, improved slightly. Continue to rehydrate and trend until <2. -patient has confounding hypernatremia as noted below. Will switch infusions over to D5W and stop normal saline infusions. -continue insulin gtt until glucose is improved, AG has closed, and bicarb is increased above 15. -patient has been placed on a bicarb infusion, will switch over to D5 from half- normal saline bicarbonate infusion. -initial potassium 4.8, will continue to trend BMP closely. Patient was provided some potassium in the emergency room. -continue telemetry monitoring -q.1 hour fingersticks -NPO but okay for occasional sips and ice chips -source is not entirely clear at this time. Patient does again have her scalp lesion which was previously I&D'd but now does not appear infected. Blood cultures are pending. No reports of diarrhea. 2. hypernatremia, acute, present on admission - admission sodium of 147 with glucose of 765. Corrected sodium 158. - will stop Normal saline infusions and bicarb in half normal infusion. Convert to D5W infusions. - continue to monitor sodium closely with frequent bmps, avoid overcorrection. 3. s/p scalp abscess drainage - continue local wound care every other day. 4. History of neurogenic bladder - no current symptomatology - UA unremarkable = continue timed voids as able once mental status improves. I spent 45 minutes providing critical care management this patient. This excludes time spent in performing separately billed procedures. Dispo: Admit to ICU for DKA Code: Full, surrogate decision maker is patient's fiance DVT: HSQ IVF: As noted above. COVID-19 COVID-19 status: Negative
[2019-11-05] MEDS: DEXTROSE 5% WATER 1,000 ML 150 ML IV ×2 (13:59→20:01)
--- NOTE | 2019-11-05 14:32 | PC.ADMIT ---
Addendum entered by Amee Esparza R.N. 11/05/19 14:33: Recieved Pt from ER, slide board used for transfer, Pt crying, I hurt generalized pain reported at 12/30. Wound to top of head has packing in it, per Pt, Dr Anderson changed this 1-2 days ago. Insulin gtt @ 7.5ml/hr. CBG 437 @ 1400. Sodium bicarb infusing, completed 2nd liter of IVF and K rider from ER. Original Note: [id number] Admission Note: The patient,Sarabjit Jimenes,29 y/o, was given written information regarding hospital policies, unit procedures and contact persons. Patient's smoking status: Never smoker. Vital Signs - 8 hr 11/05/19 07:28 11/05/19 08:04 11/05/19 08:30 Temperature 97.2 F L Pulse Rate 133 H 133 H 129 H Respiratory Rate 23 22 19 Blood Pressure 147/102 H 144/97 H Pulse Oximetry 100 98 100 11/05/19 08:52 11/05/19 09:00 11/05/19 09:30 Temperature Pulse Rate 129 H 127 H 124 H Respiratory Rate 24 22 18 Blood Pressure 125/72 128/77 123/74 Pulse Oximetry 11/05/19 10:00 11/05/19 10:30 11/05/19 11:00 Temperature Pulse Rate 122 H 126 H 128 H Respiratory Rate 19 0 L 19 Blood Pressure 127/83 116/80 124/78 Pulse Oximetry 100 100 11/05/19 11:30 11/05/19 12:46 11/05/19 13:00 Temperature 97.0 F L Pulse Rate 128 H 133 H 114 H Respiratory Rate 20 26 H 11 L Blood Pressure 131/83 123/84 114/76 Pulse Oximetry 99 100 100 11/05/19 14:00 Temperature Pulse Rate 120 H Respiratory Rate 17 Blood Pressure 120/77 Pulse Oximetry 99
[2019-11-05] MEDS: SODIUM BICARB 8.4% VIAL 100 MEQ in DEXTROSE 5% WATER 1,000 ML 150 MEQ IV ×2 (15:21→21:55)
[2019-11-05] MEDS: HYDROMORPHONE 1 MG INJ IV ×2 (16:00→23:37)
[2019-11-05 16:28] LABS: BUN Creatinine Ratio 17.9 (6-22); Blood Urea Nitrogen 17 mg/dL (7-17); Calcium 8.9 mg/dL (8.4-10.2); Estimated Glomerular Filt Rate > 60.0 mL/min (>60); Glucose 314 mg/dL (70-100); HEMOLYSIS < 15 (0-50); Magnesium 2.2 mg/dL (1.6-2.3); Potassium 3.7 mmol/L (3.4-5.1); Sodium 150 mmol/L (137-145)
[2019-11-05 16:32] LABS: Carbon Dioxide 6 mmol/L (22-32); Chloride 122 mmol/L (98-107)
[2019-11-05] MEDS: WATER IV ×2 (17:43→21:52)
[2019-11-05] MEDS: DEXTROSE 5% IV ×2 (17:43→21:52)
[2019-11-05] MEDS: POTASSIUM CHLORIDE IV ×2 (17:43→21:52)
[2019-11-05] MEDS: INSULIN DRIP PREMIX 100 UNIT/100 ML PLAST..BAG 6.4 UNIT IV (20:11)
[2019-11-05 20:45] LABS: BUN Creatinine Ratio 22.5 (6-22); Blood Urea Nitrogen 16 mg/dL (7-17); Calcium 8.4 mg/dL (8.4-10.2); Carbon Dioxide 18 mmol/L (22-32); Chloride 116 mmol/L (98-107); Estimated Glomerular Filt Rate > 60.0 mL/min (>60); Glucose 286 mg/dL (70-100); HEMOLYSIS < 15 (0-50); Potassium 3.2 mmol/L (3.4-5.1); Sodium 144 mmol/L (137-145)
[2019-11-05] MEDS: DEXTROSE 5%-0.45% NS 1,000 ML 50 ML IV (23:40)
[2019-11-06] VITALS (60 sets, daily range): BP systolic 81–118; BP diastolic 47–84; PULSE 96–116; RESP 6–36; TEMP 36.6–37.2; O2SAT 89–100
[2019-11-06 01:59] LABS: BUN Creatinine Ratio 23.7 (6-22); Blood Urea Nitrogen 14 mg/dL (7-17); Calcium 8.3 mg/dL (8.4-10.2); Carbon Dioxide 22 mmol/L (22-32); Chloride 115 mmol/L (98-107); Estimated Glomerular Filt Rate > 60.0 mL/min (>60); Glucose 148 mg/dL (70-100); HEMOLYSIS < 15 (0-50); Potassium 3.6 mmol/L (3.4-5.1); Sodium 140 mmol/L (137-145)
--- NOTE | 2019-11-06 02:09 | PC.NURSE ---
Notified Kael COLES of 0100 lab results. Orders received
[2019-11-06] MEDS: POTASSIUM CHLORIDE 20 MEQ in SODIUM CHLORIDE 0.9% 250 ML 130 ML IV (02:41)
[2019-11-06] MEDS: HYDROMORPHONE 1 MG INJ 0.5 MG IV (03:30)
--- NOTE | 2019-11-06 03:36 | PC.NURSE ---
Addendum entered by Nimisha Strong R.N. 11/06/19 07:00: VO Kael COLES continue insulin gtt at 0.9ml/hr with most recent BS of 107. Addendum entered by Nimisha Strong R.N. 11/06/19 05:34: Pt reports itchiness from pain meds. Requesting Benadryl. TO from Kael COLES Addendum entered by Nimisha Strong R.N. 11/06/19 05:32: TO Kael COLES increase insulin gtt to 0.9ml/hr after reading lab results. WCTM Addendum entered by Nimisha Strong R.N. 11/06/19 05:22: Notified Kael COLES of recent lab results and BS. Continue gtt at 0.4ml/hr Original Note: Notified Kael COLES of recent blood glucose levels. VO from Kael COLES change insulin gtt rate to 0.4ml/hr and continue to monitor BG Q 1 hour and notify her if results continue dropping, instead of adjusting per protocol.
[2019-11-06] MEDS: HYDROMORPHONE 1 MG INJ IV ×5 (04:20→21:25)
[2019-11-06 04:27] LABS: Add Manual Diff / Slide Review NO; Basophils Absolute Auto 100 /uL (0-100); Basophils Percent Auto 0.7 % (0-2); Eosinophils Absolute Auto 0 /uL (0-450); Eosinophils Percent Auto 0.1 % (2-4); Hematocrit 30.4 % (36-46); Hemoglobin 10.5 g/dL (12.0-16.0); Lymphocytes Absolute Auto 1500 /uL (1100-4500); Lymphocytes Percent Auto 14.1 % (25-40); Mean Corpuscular HGB Conc 34.6 % (30-36); Mean Corpuscular Hemoglobin 33.2 PG (26-34); Monocytes Absolute Auto 1200 /uL (0-900); Neutrophils Absolute Auto 7900 /uL (1500-7000); Neutrophils Percent Auto 74.1 % (50-75); Platelet Count 310 X10^3/uL (150-400); Red Blood Cell Count 3.17 X10^6/uL (4.0-5.2); Red Cell Distribution Width 13.5 % (11.6-14.8); White Blood Cell Count 10.7 X10^3/uL (4.5-11.0)
[2019-11-06 04:34] LABS: Alanine Aminotransferase 11 IU/L (<35); Albumin 3.2 g/dL (3.5-5.0); Albumin Globulin Ratio 1.2 (1.0-2.8); Alkaline Phosphatase 94 U/L (38-126); Aspartate Aminotransferase 18 IU/L (14-36); BUN Creatinine Ratio 24.1 (6-22); Bilirubin Total 0.2 mg/dL (0.2-1.3); Bilirubin Unconjugated 0.2 mg/dL (0.0-1.1); Blood Urea Nitrogen 13 mg/dL (7-17); Calcium 8.4 mg/dL (8.4-10.2); Carbon Dioxide 19 mmol/L (22-32); Chloride 117 mmol/L (98-107); Estimated Glomerular Filt Rate > 60.0 mL/min (>60); Globulin 2.6 g/dL (1.7-4.1); Glucose 103 mg/dL (70-100); HEMOLYSIS < 15 (0-50); Magnesium 1.9 mg/dL (1.6-2.3); Phosphorous 1.9 mg/dL (2.5-4.5); Potassium 4.3 mmol/L (3.4-5.1); Sodium 141 mmol/L (137-145); Total Protein 5.8 g/dL (6.3-8.2)
[2019-11-06] MEDS: diphenhydrAMINE 50 MG/ML VIAL 25 MG IV ×5 (05:39→23:50)
--- NOTE | 2019-11-06 06:40 | PC.NURSE ---
Late entry 0400 - Pt sobbing in bed reporting generalized pain 10/, unresolved with 0.5mg Dilaudid. 2nd dose of dilaudid given. 0500 pt now resting in bed reports pain is getting better and tolerable. Reports I get itchy from taking dilaudid, can I get some benedryl Benedryl given via TO Kael COLES. Pt now resting in bed looking comfortable. Insulin gtt running at 0.9ml/hr per TO Kael COLES order. Asymptomatic hypotension of 97/53. Pt ST on tele throughout the night, MOTORIZED [employer] aware. 97% o2 sats on RA.
[2019-11-06] MEDS: INSULIN ASPART 100 UNIT/ML INSULN PEN 7 UNIT SUBCUT ×3 (09:04→16:31)
[2019-11-06] MEDS: HEPARIN 5,000 UNIT/ML VIAL 5000 UNIT SUBCUT (09:08)
--- NOTE | 2019-11-06 11:11 | PC.NURSE ---
Addendum entered by Amee Esparza R.N. 11/06/19 11:58: IVF d5 nS infusing, Pt is eating and drinking well, Order to SL and recheck labs @ 1300. Original Note: Assumed care of pt, tearful and c/o pain to head where packing in place. Medicated per Emar. Triceba given and eating. Insulin gtt turned off 2 hours later. CBG been well controlled so far this shift, changed to AC HS. Pt is sitting up in bed and more alert than start of shift. RA, tele ST, no nausea. Call light in reach.
--- NOTE | 2019-11-06 11:27 | PM.PN.1 ---
Subjective Subjective Date Patient Seen: 11/06/19 Time Patient Seen: 11:27 Interval history: Ms. Sarabjit Jimenes is a 28-year-old female patient with a history significant for type 1 diabetes, migraines, irregular menstruation and prior pyelolithiasis who presented to the ER with lethargy, nausea, vomiting, and abdominal pain admitted with DKA. She required a bicarb infusion which was stopped overnight. Gap closed quickly and bicarb improved quickly as well. Waited for some time after bicarb was off before discontinuing insulin drip this morning. She was given her home tresiba and insulin drip was turned off around 9 am this morning. She is hungry this morning. Still with generalized abdominal pain and hunger pains this AM. Denies nausea or vomiting. No diarrhea. Will repeat another BMP as her bicarb began to drop again to make sure she does not go back into DKA. Patient reported that she has been injecting into the same site, which leads to scarring and poor absorption of her insulin. This was discussed with the patient today and the need to vary injection sites. This may explain her repeated admissions for DKA. Patient had rapid correction her hypernatremia which was difficult to control with her insulin drip. She has corrected back to normal at 141 this morning. Exam Vital Signs (past 8 hours): - 11/06/19 03:30 11/06/19 03:45 11/06/19 04:00 Temperature Pulse Rate 101 H 100 H 103 H Respiratory Rate 8 L 8 L 11 L Blood Pressure 102/63 Pulse Oximetry 100 97 96 11/06/19 04:15 11/06/19 04:22 11/06/19 04:30 Temperature Pulse Rate 112 H 106 H 96 H Respiratory Rate 11 L 22 13 Blood Pressure Pulse Oximetry 99 98 11/06/19 04:45 11/06/19 05:00 11/06/19 05:15 Temperature Pulse Rate 102 H 104 H 108 H Respiratory Rate 10 L 8 L 12 Blood Pressure 99/56 L Pulse Oximetry 89 L 96 97 11/06/19 05:30 11/06/19 05:45 11/06/19 05:46 Temperature 97.9 F Pulse Rate 99 H 101 H Respiratory Rate 11 L 8 L Blood Pressure Pulse Oximetry 97 97 11/06/19 06:00 11/06/19 06:15 11/06/19 06:30 Temperature 97.9 F Pulse Rate 100 H 103 H 101 H Respiratory Rate 6 L 7 L 7 L Blood Pressure 97/53 L Pulse Oximetry 97 95 96 11/06/19 06:45 11/06/19 07:00 11/06/19 08:00 Temperature 98.4 F Pulse Rate 101 H 102 H 96 H Respiratory Rate 6 L 8 L 10 L Blood Pressure 97/54 L 103/64 Pulse Oximetry 96 97 99 11/06/19 09:00 11/06/19 10:58 Temperature 98.3 F Pulse Rate 110 H 100 H Respiratory Rate 13 14 Blood Pressure 118/78 107/58 L Pulse Oximetry 100 99 Oxygen Delivery Method Room Air Oxygen Flow Rate 0 Narrative Exam Narrative: GENERAL APPEARANCE: Acutely ill-appearing young female, thin with BMI of 17.9, pale but improved color. No acute distress and improved cognition. SKIN: Inspection of the skin reveals no rashes, ulcerations or petechiae. Tattoos are present. HEENT: Normocephalic atraumatic, extraocular muscles are intact, oropharynx is clear and mucous membranes dry, neck is supple without adenopathy. There is a dried dressing on the superior aspect of her head in surgical wound no active purulence and minimal surrounding erythema. NECK: Supple and symmetric. There was no thyroid enlargement, and no tenderness, or masses were felt. CHEST: Normal AP diameter and normal contour without any kyphoscoliosis. LUNGS: Auscultation of the lungs revealed no wheezes, rhonchi, or rales. CARDIOVASCULAR: Tachycardic rate regular rhythm without any murmurs, gallops, rubs. Peripheral pulses were 2+ and symmetric. ABDOMEN: Soft, diffusely tender but minimally without guarding or rebound, nondistended. No ascites was noted. MUSCULOSKELETAL: There was no tenderness or effusions noted. Muscle strength and tone were normal. EXTREMITIES: No cyanosis, clubbing or edema. NEUROLOGIC: Alert and oriented x 3. normal affect. Strength is +5/5 in the Upper Extremities and Lower Extremities Bilaterally. Sensation to touch was normal. Objective Labs Result Diagrams: 11/06/19 04:12 11/06/19 04:12 Labs: Laboratory Results - last 24 hr 11/05/19 11/05/19 11/05/19 11:20 15:00 20:28 WBC RBC Hgb Hct MCV MCH MCHC RDW Plt Count Neut % (Auto) Lymph % (Auto) [place] % (Auto) Eos % (Auto) Baso % (Auto) Neut # (Auto) Lymph # (Auto) [place] # (Auto) Eos # (Auto) Baso # (Auto) Sodium 147 H 150 H 144 Potassium 4.8 3.7 3.2 L Chloride 113 H 122 H* 116 H Carbon Dioxide < 5 L* 6 L* 18 L BUN 18 H 17 16 Creatinine 1.18 H 0.95 0.71 Estimated GFR 54.9 L > 60.0 > 60.0 BUN/Creatinine Ratio 15.3 17.9 22.5 H Glucose 765 H* 314 H D 286 H Calcium 9.1 8.9 8.4 Phosphorus 2.0 L D Magnesium 2.2 Total Bilirubin Conjugated Bilirubin Unconjugated Bilirubin AST ALT Alkaline Phosphatase Total Protein Albumin Globulin Albumin/Globulin Ratio 11/06/19 11/06/19 11/06/19 01:37 04:12 04:12 WBC 10.7 RBC 3.17 L Hgb 10.5 L Hct 30.4 L MCV 96.0 D MCH 33.2 MCHC 34.6 D RDW 13.5 Plt Count 310 Neut % (Auto) 74.1 Lymph % (Auto) 14.1 L [place] % (Auto) 11.0 Eos % (Auto) 0.1 L Baso % (Auto) 0.7 Neut # (Auto) 7900 H Lymph # (Auto) 1500 [place] # (Auto) 1200 H Eos # (Auto) 0 Baso # (Auto) 100 Sodium 140 141 Potassium 3.6 4.3 Chloride 115 H 117 H Carbon Dioxide 22 19 L BUN 14 13 Creatinine 0.59 0.54 Estimated GFR > 60.0 > 60.0 BUN/Creatinine Ratio 23.7 H 24.1 H Glucose 148 H D 103 H Calcium 8.3 L 8.4 Phosphorus 1.9 L Magnesium 1.9 Total Bilirubin 0.2 Conjugated Bilirubin 0.0 Unconjugated Bilirubin 0.2 AST 18 ALT 11 Alkaline Phosphatase 94 D Total Protein 5.8 L Albumin 3.2 L Globulin 2.6 Albumin/Globulin Ratio 1.2 Assessment & Plan Assessment & Plan narrative: Ms. Sarabjit Jimenes is a 28-year-old female patient with a history significant for type 1 diabetes, migraines, irregular menstruation and prior pyelolithiasis who presents to the ER with nausea, vomiting, vague abdominal pain and fatigue. She is admitted with DKA to the intensive care unit now off of insulin gtt and improving. 1. Type 1 diabetes with diabetic ketoacidosis, acute, present on admission, improving -patient with presenting VBG of pH 6.87, bicarb of <5. Appropriately compensated with PCO2 of 8.9. AG of >30. LA mildly elevated as well on admission at 2.8, improved slightly. Continue to rehydrate and trend until <2. -patient has confounding hypernatremia as noted below making fluid management difficult. -patient was placed on a bicarb infusion briefly, stopped when bicarb improved rapidly from 6 to >15. Insulin infusion continued until AG closed, Bicarb >15, and glucose had normalized. -initial potassium 4.8, will continue to trend BMP closely. She has had multiple repletions of potassium for hypokalemia. -continue telemetry monitoring -continue home tresiba 50 units, meal times insulin and sliding scale. -source may be from using the same small area for injection sites. 2. hypernatremia, acute, present on admission, resolved - admission sodium of 147 with glucose of 765. Corrected sodium 158. Attempted to avoid over correction but difficult to control in the setting of needed insulin infusion and dehydration. Sodium now 141 this AM, changed to normal saline overnight in attempt to avoid overcorrection. Remains on normal saline as she still appears dehydrated. - patient is asymptomatic at this time, but continue to monitor for confusion and consider imaging for cerebral edema, however in the setting of DKA there are only isolated case reports of this in younger patients. 3. s/p scalp abscess drainage - continue local wound care with packing every other day. 4. History of neurogenic bladder - no current symptomatology - UA unremarkable = continue timed voids as able once mental status improves. I spent 30 minutes providing critical care management this patient. This excludes time spent in performing separately billed procedures. Dispo: Remains ICU until repeat BMP, if bicarb is still >16 and gap remains closed after restarting insulin, she can be listed for regular floor later today. Possible discharge home tomorrow if remains well. Code: Full, surrogate decision maker is patient's fiance DVT: HSQ IVF: As noted above. COVID-19 COVID-19 status: Negative Quality VTE Deep Vein Thrombosis/Pulmonary Embolism Present on Admission: No
[2019-11-06 14:40] LABS: Blood Urea Nitrogen 14 mg/dL (7-17); Calcium 8.9 mg/dL (8.4-10.2); Carbon Dioxide 17 mmol/L (22-32); Chloride 109 mmol/L (98-107); Estimated Glomerular Filt Rate > 60.0 mL/min (>60); Glucose 432 mg/dL (70-100); HEMOLYSIS 20 (0-50); Potassium 4.4 mmol/L (3.4-5.1); Sodium 136 mmol/L (137-145)
--- NOTE | 2019-11-06 15:13 | CM.DPNOTE ---
DCP Note Contact Information: Kevin Hinson complicated discharge flight coordinator, [facility] P# [phone] JW
[2019-11-06 15:17] LABS: Lactate (Lactic Acid) 0.5 mmol/L (0.7-2.1)
--- NOTE | 2019-11-06 16:09 | DIET.PN ---
Dietary Progress Note Assessment: Ms. Jimenes is a 29 yof well known to me through several encounters for inpatient diabetes education. She was presented to the ER with lethargy, nausea, vomiting, and abdominal pain admitted with DKA. At my initial visit (11/04) she endorsed pain all over and was unable to complete an assessment. She was awake today, but does not recall out interaction on the previous day. She endorses improved appetite and her pain is controlled. She seems more positive then she has in moving forward with her diabetes care. She acknowledged that I called to follow up in scheduling an appt, but she had just been admitted. HT: 154.94cm WT: 43kg UBW: stable BMI: 17.9 Labs: A1c: >14 Ketones: 19.54 Gluc: 867 (on admit) Phos: 8.9 (on admit) Nutrition Diagnosis: 1. Acute Severe PCM r/t GI complications aeb 8.8% weight loss <1 week, N/V, BMI 17.9. 2. Altered nutrition related lab values r/t endocrine dysfunction aeb elevated A1c, blood glucose, ketones, not ready for diet/lifestyle change. Interventions: 1. Patient has agreed to outpatient nutrition therapy and diabetes management with this educator. She is willing to meet on an individual basis to review medication management, food records, blood glucose logs, and lifestyle behavior. 2. Spoke with Lexii, director of health care marketing, this morning. Waiting to hear back from care coordination on possibility of CGM and pump management. 3. If intake <75% provide ONS glucerna BID. 4. Reviewed dietary intake and concerns with medication management. Recommended she keep a food and glucose log. Diet Order: CCD Monitoring/Evaluations: Referral for outpatient diabetes education already in place. Will confirm appt with care coordination.
--- NOTE | 2019-11-06 16:14 | CM.IDA ---
Initial DCP Assessment Note: Patient is a 29 yo female, resident of [place]. Patient admitted w/DKA PCP: Unestablished at this time Payer: [facility] Reviewed chart. Patient familiar to this CARBON FURNACE OPERATOR HELPER and DC planning team from prior admissions. Patient is a brittle diabetic and has struggled with non compliance w/ suggested medical care/ f/u, medication management, and lifestyle considerations. This CARBON FURNACE OPERATOR HELPER was unable to accommodate a bedside assessment today but will attempt tomorrow to review DCP. Will also continue discussion w/patient about identifying any barriers in place that are making compliance w/health recommendations difficult for her. Had conversation w/ Dr Weinberg and Carlos, Manager Army, today re: patient's needs. Both suggest an insulin pump would help patient manage her Diabetes type I. Luanne Barreto also hopeful that patient will return her calls so she can schedule outpt visits w/patient. Dr Weinberg suggests that patient does not rotate her insulin injection sites, does not monitor her blood sugars and so is thrown into DKA. Dr Weinberg hopeful that if patient agrees to document her blood sugars and works w/her termite treater helper, she may qualify for insulin pump. This CARBON FURNACE OPERATOR HELPER following closely and will connect w/[facility] RN DC category planner Kevin (complex case DC category planner) to discuss patient's needs and barriers to care. RAYMNOD Loza
[2019-11-06] MEDS: INSULIN ASPART 100 UNIT/ML INSULN PEN SUBCUT ×2 (16:32→21:24)
[2019-11-06 17:18] LABS: Glucose 586 mg/dL (70-100)
--- NOTE | 2019-11-06 18:07 | PC.NURSE ---
dressing to scalp wound soaked with saline and removed. wound cleaned with saline, no drainage noted. Repacked with vasaline soaked gauze. Pt tolerated well.
[2019-11-06 19:40] LABS: Blood Urea Nitrogen 19 mg/dL (7-17); Calcium 9.1 mg/dL (8.4-10.2); Carbon Dioxide 18 mmol/L (22-32); Chloride 105 mmol/L (98-107); Estimated Glomerular Filt Rate > 60.0 mL/min (>60); Glucose 375 mg/dL (70-100); HEMOLYSIS < 15 (0-50); Potassium 4.1 mmol/L (3.4-5.1); Sodium 136 mmol/L (137-145)
[2019-11-07] VITALS: BP 119/67; PULSE 104; RESP 16; TEMP 36.8; O2SAT 97
[2019-11-07] MEDS: INSULIN ASPART 100 UNIT/ML INSULN PEN SUBCUT ×2 (00:04→08:38)
[2019-11-07] MEDS: HYDROMORPHONE 1 MG INJ IV ×3 (01:02→08:47)
[2019-11-07 03:39] VITALS: BP 121/78; PULSE 93; RESP 16; TEMP 36.1; O2SAT 100
[2019-11-07 05:08] LABS: Add Manual Diff / Slide Review NO; Basophils Absolute Auto 0 /uL (0-100); Basophils Percent Auto 0.3 % (0-2); Eosinophils Absolute Auto 100 /uL (0-450); Eosinophils Percent Auto 1.1 % (2-4); Hematocrit 30.9 % (36-46); Hemoglobin 10.4 g/dL (12.0-16.0); Lymphocytes Absolute Auto 2600 /uL (1100-4500); Lymphocytes Percent Auto 39.6 % (25-40); Mean Corpuscular HGB Conc 33.6 % (30-36); Mean Corpuscular Hemoglobin 32.7 PG (26-34); Mean Corpuscular Volume 97.6 fL (80-100); Monocytes Absolute Auto 500 /uL (0-900); Neutrophils Absolute Auto 3400 /uL (1500-7000); Platelet Count 254 X10^3/uL (150-400); Red Blood Cell Count 3.16 X10^6/uL (4.0-5.2); Red Cell Distribution Width 13.5 % (11.6-14.8); White Blood Cell Count 6.6 X10^3/uL (4.5-11.0)
[2019-11-07 05:14] LABS: Alanine Aminotransferase 14 IU/L (<35); Albumin 3.4 g/dL (3.5-5.0); Albumin Globulin Ratio 1.4 (1.0-2.8); Alkaline Phosphatase 121 U/L (38-126); Aspartate Aminotransferase 33 IU/L (14-36); BUN Creatinine Ratio 31.5 (6-22); Bilirubin Total 0.3 mg/dL (0.2-1.3); Bilirubin Unconjugated 0.3 mg/dL (0.0-1.1); Blood Urea Nitrogen 17 mg/dL (7-17); Carbon Dioxide 24 mmol/L (22-32); Chloride 105 mmol/L (98-107); Estimated Glomerular Filt Rate > 60.0 mL/min (>60); Globulin 2.5 g/dL (1.7-4.1); Glucose 277 mg/dL (70-100); HEMOLYSIS < 15 (0-50); Magnesium 1.9 mg/dL (1.6-2.3); Phosphorous 2.9 mg/dL (2.5-4.5); Sodium 136 mmol/L (137-145); Total Protein 5.9 g/dL (6.3-8.2)
[2019-11-07] MEDS: diphenhydrAMINE 50 MG/ML VIAL 25 MG IV ×2 (05:22→08:47)
[2019-11-07 08:00] VITALS: BP 120/82; PULSE 90; RESP 16; TEMP 36.4; O2SAT 100
[2019-11-07] MEDS: INSULIN ASPART 100 UNIT/ML INSULN PEN 7 UNIT SUBCUT (08:38)
--- NOTE | 2019-11-07 10:18 | P.DS_ITS ---
History of Present Illness History of Present Illness Chief complaint: thinks she's in dka Narrative: Ms. Sarabjit Jimenes is a 28-year-old female patient with a history significant for type 1 diabetes, migraines, irregular menstruation and prior pyelolithiasis who presented to the ER today with lethargy, nausea, vomiting, and abdominal pain. She has been admitted multiple times over the past few months for DKA. She states she started feeling ill yesterday with mild abdominal pain, nausea, and vomiting twice. This did not improve overnight and came to the ER this morning thinking she was in DKA. She endorses continued compliance with her insulin, although most recently her A1c was 14 and glucoses are generally controlled while admitted. She has been following with the cartography/mapping technician. She had an abscess removed during the last admission by Dr. Anderson and has been receiving packing changes every other day. In the emergency room, patient was very pale, tachycardic into the 130s and tachypneic, but normotensive and afebrile. She was saturating well on room air. CV she showed a leukocytosis of 18.5, and a platelet count of 581. Blood gas showed a pH of 6.87, with a pCO2 of 8.9, a bicarb of 2. Chemistries showed a sodium of 147 with a glucose of 765. Liver enzymes were unremarkable. Patient did have a lactate to 2.8 which improved to 2.6 after initial fluid bolus. Urine was negative. Urinalysis showed no evidence of infection did show glucose and ketones. Serum ketones were also elevated. Urine drug screen was negative. COVID-19 testing was also negative. Patient was admitted to the ICU for further management of DKA Discharge Providers Provider Date of admission: 11/05/19 10:16 Discharge Date: 11/07/19 Consults: 11/05/19 12:49 Consult to Dietitian, Adult Routine Comment: Reason For Exam: DM Consult to Discharge Planning Routine Comment: Discharge provider: Pedro Servin MD Summary Hospital Course Discharge Diagnosis: 1. Acute DKA 2. Acute hypernatremia due to volume depletion 3. Status post scalp abscess drainage prior to admission 4. History of neurogenic bladder Hospital Course: Patient presented with severe anion gap acidosis, pH 6.87, bicarb of less than 5, anion gap of greater than 30 consistent with DKA. She was volume resuscitated, started on insulin drip, and was briefly on bicarb infusion until pH improved. As of last night she had resolution of her anion gap and has been back on her home insulin regimen. Glucose at time of discharge running in the mid to low 200 range. Patient will be establishing with new linux support engineer at [facility] on SaturdayNovember 08. Status at Discharge Cognitive/behavioral status at discharge: oriented Functional status at discharge: independent ambulation Overall status at discharge: patient is back to baseline Time Spent with Patient Time spent: Less than 30 minutes Exam Vital Signs (past 8 hours): - 11/07/19 03:39 11/07/19 08:00 Temperature 97.0 F L 97.6 F Pulse Rate 93 H 90 Respiratory Rate 16 16 Blood Pressure 121/78 120/82 Pulse Oximetry 100 100 Oxygen Delivery Method Room Air Oxygen Flow Rate 0 Objective Labs Result Diagrams: 11/07/19 04:35 11/07/19 04:35 Labs: Laboratory Results - last 24 hr 11/06/19 11/06/19 11/06/19 13:18 15:02 16:27 WBC RBC Hgb Hct MCV MCH MCHC RDW Plt Count Neut % (Auto) Lymph % (Auto) [place] % (Auto) Eos % (Auto) Baso % (Auto) Neut # (Auto) Lymph # (Auto) [place] # (Auto) Eos # (Auto) Baso # (Auto) Sodium 136 L Potassium 4.4 Chloride 109 H Carbon Dioxide 17 L BUN 14 Creatinine 0.70 Estimated GFR > 60.0 BUN/Creatinine Ratio 20.0 Glucose 432 H D 586 H* Lactate 0.5 L Calcium 8.9 Phosphorus Magnesium Total Bilirubin Conjugated Bilirubin Unconjugated Bilirubin AST ALT Alkaline Phosphatase Total Protein Albumin Globulin Albumin/Globulin Ratio 11/06/19 11/07/19 11/07/19 19:23 04:35 04:35 WBC 6.6 RBC 3.16 L Hgb 10.4 L Hct 30.9 L MCV 97.6 MCH 32.7 MCHC 33.6 RDW 13.5 Plt Count 254 Neut % (Auto) 51.0 D Lymph % (Auto) 39.6 D [place] % (Auto) 8.0 Eos % (Auto) 1.1 L Baso % (Auto) 0.3 Neut # (Auto) 3400 Lymph # (Auto) 2600 [place] # (Auto) 500 Eos # (Auto) 100 Baso # (Auto) 0 Sodium 136 L 136 L Potassium 4.1 4.0 Chloride 105 105 Carbon Dioxide 18 L 24 BUN 19 H 17 Creatinine 0.76 0.54 Estimated GFR > 60.0 > 60.0 BUN/Creatinine Ratio 25.0 H 31.5 H Glucose 375 H D 277 H Lactate Calcium 9.1 9.0 Phosphorus 2.9 D Magnesium 1.9 Total Bilirubin 0.3 Conjugated Bilirubin 0.0 Unconjugated Bilirubin 0.3 AST 33 ALT 14 Alkaline Phosphatase 121 Total Protein 5.9 L Albumin 3.4 L Globulin 2.5 Albumin/Globulin Ratio 1.4 Discharge Plan Discharge Plan Patient Disposition: Home Discharge orders & Medications Prescriptions: Continued glucose 4 gram tablet,chewable 4 gram PO Q15M PRN (Reason: hypoglycemia) Qty: 30 RF: 0 Glucagon Emergency Kit (human) 1 mg recon soln 1 mg subcut DIRECTED RF: 0 oxycodone 5 mg tablet 5 mg PO Q6H PRN (Reason: pain) Qty: 30 RF: 0 Insulin Deglude 50 unit SUBCUT DAILY 30 Days RF: 0 insulin aspart U-100 [Novolog Flexpen U-100 Insulin] 100 unit/mL (3 mL) Insulin Pen 7 unit SUBCUT AC Qty: 30 RF: 0 hydroxyzine pamoate [Vistaril] 50 mg capsule 50 mg PO QID PRN (Reason: itching) 30 Days Qty: 20 RF: 0 insulin lispro [Humalog KwikPen Insulin] 100 unit/mL insulin pen See Rx Instructions .ROUTE .COMPLEX Qty: 0 RF: 0 Discharge Health Status Multidrug resistant organism: No MDRO Diet/Activity/Treatments Diet: Diet as Tolerated Visit Report/Discharge Packet Visit Report Forms: Patient Portal/API, Stroke Signs & Symptoms Quality VTE Deep Vein Thrombosis/Pulmonary Embolism Present on Admission: No
--- NOTE | 2019-11-07 12:27 | CM.DPNOTE ---
DCP Cont According to conversation w/Kevin, RN DC search planner w/[facility]: Patient has not been assigned a Custom Bow Maker yet because she often will not return senior technical manager's call to discuss case management services. Custom Bow Maker through [facility] will again attempt by requesting transfer into patient's room, while patient admitted at . This ORGANIC SECTION TECHNICAL LEAD reviewed both Dr Weinberg's and Clergy Member Luanne Barreto's recommendation for insulin pump and scheduled, consistent meetings w/ Clergy Member for continued discussion/education about managing Diabetes Type I. This ORGANIC SECTION TECHNICAL LEAD inquired if a Custom Bow Maker would be able to assist patient in securing an insulin pump? Providing reminders about tracking, encouraging compliance and reviewing goals of care w/patient. This ORGANIC SECTION TECHNICAL LEAD also wonders if patient might be approp. for HH nursing to assist w/medication management and packing of head wound ? Kevin unable to address most of this ORGANIC SECTION TECHNICAL LEAD's questions, stating this isn't really my territory, but I will contact the nurse community case manager after this. Kevin states patient will not qualify for HH if she can make it into an outpt wound care clinic appt. Kevin also states in general an secondary history teacher my not want to recommend an insulin pump for someone that has been non compliant w/care. Lastly, Kevin states that if patient does not return phone calls there is not much that can be done to support her, this ORGANIC SECTION TECHNICAL LEAD agrees patient will need to participate in her care to be successful. Attempted to meet w/patient this morning before DC and she had left the building already. This ORGANIC SECTION TECHNICAL LEAD suggests psychiatric consultation upon patient's next visit. The concern is patient my be suffering from severe anxiety and depression which is limiting her ability to cope w/the demands of managing her chronic disease process. This might also help establish care w/ a psychiatrist in [place]. This ORGANIC SECTION TECHNICAL LEAD gave counseling resources (emphasized [place] for convenience) during last admit, unsure if patient followed up. P: DC home w/family and close outpt f/u. Hopefully upon next admission, a nurse case operator will be assigned to patient to assist in outpt care coordination. RAYMOND Loza
== END 2019-11-07 10:33 | disposition home or self-care (01) | DRG 638 ==
LOC: ED 07:45 → AC 10:19 → ICU 12:35
PROVIDERS: Admitting Provider Internal Medicine; Emergency Provider Emergency Medicine; Referring Provider Emergency Medicine; Visit Provider Internal Medicine
DX: E10.10 Type 1 diabetes mellitus with ketoacidosis without coma (principal); E87.0 Hyperosmolality and hypernatremia; L02.811 Cutaneous abscess of head [any part, except face]; N17.9 Acute kidney failure, unspecified; Z79.01 Long term (current) use of anticoagulants
CPT/HCPCS: 36415; 36600; 80048; 80053; 80076; 80305; 80320; 80329; 81001; 82009; 82805; 82947; 82962; 83605; 83690; 83735; 84100; 84145; 84443; 84703; 85025; 87040; 87635; 93005; 93010; 96361; 96365; 96366; 96368; 99285; 99291; G0480; J1170; J1200; J1644; J3480; J7050

== ENCOUNTER → 2019-11-12 16:23 | Outpatient (CLI) | payer OTHER, MEDICAID, SELFPAY ==
[2019-11-05 13:34] VITALS: BMI 17.9
== END ==
PROVIDERS: PCP Internal Medicine; Referring Provider Surgery; Visit Provider Family Medicine
DX: S01.00XA Unspecified open wound of scalp, initial encounter (principal); E10.65 Type 1 diabetes mellitus with hyperglycemia; G89.18 Other acute postprocedural pain
CPT/HCPCS: 11042; 99203; 99213

== ENCOUNTER → 2019-11-18 14:59 | Outpatient (CLI) | payer OTHER, MEDICAID, SELFPAY ==
[2019-11-05 13:34] VITALS: BMI 17.9
== END ==
PROVIDERS: PCP Internal Medicine; Referring Provider Surgery; Visit Provider Family Medicine
DX: S01.00XA Unspecified open wound of scalp, initial encounter (principal); E10.65 Type 1 diabetes mellitus with hyperglycemia
CPT/HCPCS: 11042

== ENCOUNTER 2019-11-20 15:58 | Inpatient (IN) | payer MEDICAID, SELFPAY ==
[2019-11-05 13:34] VITALS: BMI 17.9
[2019-11-20 16:01] VITALS: BP 131/89; PULSE 140; RESP 30; TEMP 37; O2SAT 97; BMI 19.4
--- NOTE | 2019-11-20 16:15 | DI.RAD.S_ITS ---
PROCEDURE: XR CHEST 1V INDICATIONS: DKA TECHNIQUE: One view of the chest was acquired. COMPARISON: [facility], CR, XR CHEST 2V, 09/29/2019, 15:43. FINDINGS: Surgical changes and devices: None. Lungs and pleura: Lungs are clear. No pleural effusions or pneumothorax. Mediastinum: Mediastinal contours appear normal. Heart size is normal. Bones and chest wall: No suspicious bony lesions. Overlying soft tissues appear unremarkable. IMPRESSION: No acute process. Dictated by: Nataly Ozuna M.D. on 11/20/2019 at 16:30 Approved by: Nataly Ozuna M.D. on 11/20/2019 at 16:30
[2019-11-20] MEDS: SODIUM CHLORIDE 0.9% 1,000 ML 1000 ML IV (16:20)
--- NOTE | 2019-11-20 16:21 | ED.GENADULT ---
HPI - General Adult General Chief complaint: Diabetic Problem Stated complaint: states DKA Time Seen by Provider: 11/20/19 16:21 Source: patient and family Mode of arrival: Wheelchair Limitations: no limitations History of Present Illness HPI narrative: Patient is a 29-year-old a brittle diabetic female very well-known to myself and this facility for frequent episodes of DKA she feels she is in DKA again today she says it started this morning. She says last night she ate some chicken which she thought was bad she immediately had some diarrhea last evening. She denies any vomiting but does feel nauseated and has diffuse pain all over. She has previously had and infection on top of her scalp which is required for and debridement. Onset (ago): hour(s) Related Data Home Medications Medication Instructions Recorded Confirmed Glucagon Emergency Kit (human) 1 mg SUBCUT DIRECTED 02/16/19 11/18/19 Previous Rx's Medication Instructions Recorded glucose 4 gram PO Q15M PRN #30 tab 12/12/18 insulin lispro [Humalog KwikPen See Rx Instructions .ROUTE 03/10/19 Insulin] .COMPLEX #0 ml hydroxyzine pamoate [Vistaril] 50 mg PO QID PRN 30 Days #20 cap 10/30/19 insulin aspart U-100 [Novolog 7 unit SUBCUT AC #30 ml 10/30/19 Flexpen U-100 Insulin] insulin degludec [Tresiba 50 unit SUBCUT DAILY 30 Days 10/30/19 FlexTouch U-100] oxycodone 5 mg tablet 5 mg PO Q6H PRN #30 tab 11/18/19 Allergies Allergy/AdvReac Type Severity Reaction Status Date / Time abdalla [ABDALLA] Allergy Intermediate Hives, Verified 11/20/19 16:01 pruritus iodine [IODINE] Allergy Intermediate rash, itchy Verified 11/20/19 16:01 morphine Allergy Intermediate Difficulty Verified 11/20/19 16:01 Breathing shellfish derived Allergy Intermediate rash Verified 11/20/19 16:01 [SHELLFISH DERIVED] adhesive [ADHESIVE] Allergy Unknown tape Verified 11/20/19 16:01 latex [LATEX] Allergy Unknown Hives Verified 11/20/19 16:01 Review of Systems Review of Systems ROS Unobtainable: All systems reviewed & are unremarkable except as noted in HPI and below Constitutional Constitutional: Reports body ache(s), Denies chills, Denies fever(s), Denies lethargy and Denies weakness Eyes Eyes: Denies change in vision, Denies eye discharge, Denies irritation and Denies loss of vision ENT Ears, Nose, Mouth, and Throat: Denies change in voice, Denies neck pain and Denies sore throat Cardiovascular Cardiovascular: Denies chest pain, Denies irregular heart rhythm, Denies lightheadedness, Denies palpitations, Denies dyspnea, Denies dyspnea on exertion and Denies orthopnea Respiratory Respiratory: Denies cough, Denies dyspnea, Denies dyspnea on exertion and Denies wheezing Gastrointestinal Gastrointestinal: Reports as per HPI Musculoskeletal Musculoskeletal: Denies back pain, Reports myalgias and Denies neck pain Integumentary/Breasts Skin/Breast: Reports as per HPI Neurologic Neurologic: Denies loss of vision and Denies weakness Endocrine Endocrine: Denies palpitations Allergic/Immunologic Allergic/Immunologic: Denies wheezing Patient History Medical History DKA (diabetic ketoacidoses) (Resolved) History of pyelonephritis (Resolved) Irregular menstrual cycle (Acute) Migraine headache (Chronic) Nephrolithiasis (Resolved) Type 1 diabetes mellitus (Chronic) Surgical History History of ureter stent (Resolved) Hx of local excision of skin lesion (Acute) Status post laser lithotripsy of ureteral calculus (Acute) [place] teeth extracted (Acute) Family History Father In good health Mother Cardiac disease Social History details: Engaged household members: significant other and family Smoking Status: Never smoker alcohol intake: current Smoking Status: Never smoker alcohol intake frequency: holidays/special occasions only Substance Use Type: does not use Exam Initial Vital Signs Initial Vital Signs: Vital Signs Temperature 98.6 F 11/20/19 16:01 Pulse Rate 140 H 11/20/19 16:01 Respiratory Rate 30 H 11/20/19 16:01 Blood Pressure 131/89 11/20/19 16:01 Pulse Oximetry 97 11/20/19 16:01 GENERAL: Thin frail crying upset young female and in no acute distress. HEENT: Head atraumatic,EOMI, pupils reactive, face symmetric, moist mucous membranes CARDIOVASCULAR: Tachycardic regular RESPIRATORY: Breath sounds equal bilaterally, no wheezes rales or rhonchi. ABDOMEN: Soft, nontender. Normoactive bowel sounds all 4 quadrants. No guarding or rebound. EXTREMITIES: Normal range of motion, no clubbing or edema. Neurovascularly intact NEUROLOGICAL: Alert and oriented x4.Normal gait and speech. Cranial nerves II through XII grossly intact. SKIN: Warm, dry, no laceration, no petechiae, no rashes or lesions. Course Orders Ordered: ED Orders 11/20/19 16:10 Complete Blood Count AUTO DIFF Stat Comprehensive Metabolic Panel Stat Ketones (Beta-Hydroxybutyrate) Stat Lactate (Lactic Acid) Stat Procalcitonin Stat Venous Blood Gas Stat 11/20/19 16:14 EKG-12 Lead Stat 11/20/19 16:15 XR chest 1V Stat 11/20/19 19:07 Blood Culture Stat INSULIN DRIP PREMIX (Myxredlin Drip Premix) 100 unit in 100 mls @ 6 mls/hr IV TITRATE BLAISE; Protocol Last Titration: 11/20/19 18:39 Dose: 6 mls/hr, 6 mls/hr Documented by: THADDEUS Cosigned by: SHERWIN Admin: 11/20/19 17:59 Dose: 6 mls/hr, 6 mls/hr Documented by: THADDEUS Cosigned by: CANDE Sodium Chloride (Normal Saline 0.9%) 1,000 mls @ 150 mls/hr IV CONT BLAISE Last Infusion: 11/20/19 18:39 Dose: 150 mls/hr Documented by: Admin: 11/20/19 17:47 Dose: 150 mls/hr Documented by: THADDEUS Discontinued Medications Hydromorphone HCl (Dilaudid) 1 mg IV NOW ONE Stop: 11/20/19 16:30 Last Admin: 11/20/19 16:37 Dose: 1 mg Documented by: THADDEUS Hydromorphone HCl (Dilaudid) 1 mg IV NOW ONE Stop: 11/20/19 17:27 Last Admin: 11/20/19 17:45 Dose: 1 mg Documented by: THADDEUS Sodium Chloride (Normal Saline 0.9%) 1,000 mls @ 1,000 mls/hr IV BOLUS ONE Stop: 11/20/19 17:13 Last Infusion: 11/20/19 17:26 Dose: 0 mls/hr Documented by: Admin: 11/20/19 16:20 Dose: 1,000 mls/hr Documented by: THADDEUS Insulin Human Regular 100 unit (/ Sodium Chloride) 100 mls @ 6 mls/hr IV TITRATE BLAISE; Protocol Ondansetron HCl (Zofran) 4 mg IV NOW ONE Stop: 11/20/19 16:15 Last Admin: 11/20/19 16:36 Dose: 4 mg Documented by: THADDEUS Ondansetron HCl (Zofran) 4 mg IV NOW ONE Stop: 11/20/19 16:30 Last Admin: 11/20/19 16:39 Dose: Not Given Documented by: THADDEUS Vital Signs Vital signs: Vital Signs - 8 hr 11/20/19 16:01 11/20/19 16:30 11/20/19 18:00 Temperature 98.6 F Pulse Rate 140 H 129 H 130 H Respiratory Rate 30 H 22 22 Blood Pressure 131/89 139/87 120/71 Pulse Oximetry 97 98 100 11/20/19 18:15 Temperature Pulse Rate 130 H Respiratory Rate 16 Blood Pressure Pulse Oximetry 100 Medical Decision Making Lab Data Result diagrams: 11/20/19 16:10 11/20/19 16:10 Labs: Lab Results 11/20/19 11/20/19 11/20/19 Range/Units 16:10 16:10 16:10 WBC 8.7 (4.5-11.0) X10^3/uL RBC 4.59 (4.0-5.2) X10^6/uL Hgb 15.1 (12.0-16.0) g/dL Hct 48.0 H (36-46) % MCV 104.5 H (80-100) fL MCH 32.9 (26-34) PG MCHC 31.5 (30-36) % RDW 13.9 (11.6-14.8) % Plt Count 514 H (150-400) X10^3/uL Neut % (Auto) 67.3 (50-75) % Lymph % (Auto) 27.0 (25-40) % [place] % (Auto) 3.2 (3-14) % Eos % (Auto) 0.1 L (2-4) % Baso % (Auto) 2.4 H (0-2) % Neut # (Auto) 5900 (0641-5929) /uL Lymph # (Auto) 2400 (2483-5778) /uL [place] # (Auto) 300 (0-900) /uL Eos # (Auto) 0 (0-450) /uL Baso # (Auto) 200 H (0-100) /uL VBG pH (7.33-7.43) VBG pCO2 (45-50) mmHg VBG pO2 (35-45) mmHg VBG HCO3 (23-28) mmol/L VBG Total CO2 (24-29) mmol/L VBG O2 Saturation (70-75) % VBG Base Excess (0-4) mmol/L Sodium 141 (137-145) mmol/L Potassium 5.0 (3.4-5.1) mmol/L Chloride 107 (98-107) mmol/L Carbon Dioxide < 5 L* (22-32) mmol/L BUN 24 H (7-17) mg/dL Creatinine 0.99 (0.52-1.04) mg/dL Estimated GFR > 60.0 (>60) mL/min BUN/Creatinine Ratio 24.2 H (6-22) Glucose 618 H* (70-100) mg/dL Lactate (0.7-2.1) mmol/L Calcium 10.0 (8.4-10.2) mg/dL Total Bilirubin 0.6 (0.2-1.3) mg/dL AST 23 (14-36) IU/L ALT 23 (<35) IU/L Alkaline Phosphatase 206 H (38-126) U/L Total Protein 8.6 H (6.3-8.2) g/dL Albumin 4.9 (3.5-5.0) g/dL Globulin 3.7 (1.7-4.1) g/dL Albumin/Globulin Ratio 1.3 (1.0-2.8) Procalcitonin 0.06 (<0.5) ng/mL Ketones 17.5 H (<0.27) mmol/L COVID-19 PCR (Negative) 07/31/20 07/31/20 07/31/20 Range/Units 16:10 16:10 17:52 WBC (4.5-11.0) X10^3/uL RBC (4.0-5.2) X10^6/uL Hgb (12.0-16.0) g/dL Hct (36-46) % MCV (80-100) fL MCH (26-34) PG MCHC (30-36) % RDW (11.6-14.8) % Plt Count (150-400) X10^3/uL Neut % (Auto) (50-75) % Lymph % (Auto) (25-40) % [place] % (Auto) (3-14) % Eos % (Auto) (2-4) % Baso % (Auto) (0-2) % Neut # (Auto) (5476-4070) /uL Lymph # (Auto) (6863-9770) /uL [place] # (Auto) (0-900) /uL Eos # (Auto) (0-450) /uL Baso # (Auto) (0-100) /uL VBG pH 7.03 L* (7.33-7.43) VBG pCO2 13.6 L (45-50) mmHg VBG pO2 51 H (35-45) mmHg VBG HCO3 4 L (23-28) mmol/L VBG Total CO2 < 5 L (24-29) mmol/L VBG O2 Saturation 70 (70-75) % VBG Base Excess -27.0 L (0-4) mmol/L Sodium (137-145) mmol/L Potassium (3.4-5.1) mmol/L Chloride (98-107) mmol/L Carbon Dioxide (22-32) mmol/L BUN (7-17) mg/dL Creatinine (0.52-1.04) mg/dL Estimated GFR (>60) mL/min BUN/Creatinine Ratio (6-22) Glucose (70-100) mg/dL Lactate 1.7 (0.7-2.1) mmol/L Calcium (8.4-10.2) mg/dL Total Bilirubin (0.2-1.3) mg/dL AST (14-36) IU/L ALT (<35) IU/L Alkaline Phosphatase (38-126) U/L Total Protein (6.3-8.2) g/dL Albumin (3.5-5.0) g/dL Globulin (1.7-4.1) g/dL Albumin/Globulin Ratio (1.0-2.8) Procalcitonin (<0.5) ng/mL Ketones (<0.27) mmol/L COVID-19 PCR Negative (Negative) Point of Care Testing Glucose POC 500 Point of care testing: Point of Care Testing Glucose POC 500 Imaging Data Chest x-ray: Radiologist's Impression: PROCEDURE: XR CHEST 1V INDICATIONS: DKA TECHNIQUE: One view of the chest was acquired. COMPARISON: [facility], , XR CHEST 2V, 09/29/2019, 15:43. FINDINGS: Surgical changes and devices: None. Lungs and pleura: Lungs are clear. No pleural effusions or pneumothorax. Mediastinum: Mediastinal contours appear normal. Heart size is normal. Bones and chest wall: No suspicious bony lesions. Overlying soft tissues appear unremarkable. IMPRESSION: No acute process. Dictated by: Nataly Ozuna M.D. on 11/20/2019 at 16:30 ECG Data Attestation: I personally reviewed and interpreted this ECG as follows: Prior ECG tracings: available for review Interpretation: Sinus tachycardia rate [address] changes similar to previous EKG MDM Narrative Medical decision making narrative: Anion gap 33. Venous pH is 7.0 which she has had previously. Patient is in DKA again. Unclear what the cause is, high suspicion of noncompliance. Patient does need an insulin pump she is working with an revenue tax specialist. Patient is given Dilaudid for pain and IV fluids. Dr. chavez updated on symptoms test results and accepts patient to the ICU. Discharge Plan Departure Patient Disposition: Admitted As Inpatient Clinical Impression: DKA (diabetic ketoacidoses) Discharge Date/Time: 11/20/19 18:41 Referrals: Gale Arita MD [Primary Care Provider] - Admit Date/Time: 11/20/19 18:20 Admit Provider: Susy Vargas
[2019-11-20 16:22] LABS: HCO3 VBG 4 mmol/L (23-28); PCO2 VBG 13.6 mmHg (45-50); PO2 VBG 51 mmHg (35-45); pH VBG 7.03 (7.33-7.43)
[2019-11-20 16:23] LABS: Oxygen Saturation VBG 70 % (70-75); Total CO2 VBG < 5 mmol/L (24-29)
[2019-11-20 16:30] VITALS: BP 139/87; PULSE 129; RESP 22; O2SAT 98
[2019-11-20 16:34] LABS: Add Manual Diff / Slide Review NO; Basophils Absolute Auto 200 /uL (0-100); Basophils Percent Auto 2.4 % (0-2); Eosinophils Absolute Auto 0 /uL (0-450); Eosinophils Percent Auto 0.1 % (2-4); Hemoglobin 15.1 g/dL (12.0-16.0); Lymphocytes Absolute Auto 2400 /uL (1100-4500); Mean Corpuscular HGB Conc 31.5 % (30-36); Mean Corpuscular Hemoglobin 32.9 PG (26-34); Mean Corpuscular Volume 104.5 fL (80-100); Monocytes Absolute Auto 300 /uL (0-900); Monocytes Percent Auto 3.2 % (3-14); Neutrophils Absolute Auto 5900 /uL (1500-7000); Neutrophils Percent Auto 67.3 % (50-75); Platelet Count 514 X10^3/uL (150-400); Red Blood Cell Count 4.59 X10^6/uL (4.0-5.2); Red Cell Distribution Width 13.9 % (11.6-14.8); White Blood Cell Count 8.7 X10^3/uL (4.5-11.0)
[2019-11-20] MEDS: ONDANSETRON 4 MG/2 ML INJ IV (16:36)
[2019-11-20] MEDS: HYDROMORPHONE 1 MG INJ IV ×4 (16:37→22:41)
[2019-11-20 16:58] LABS: Alanine Aminotransferase 23 IU/L (<35); Albumin 4.9 g/dL (3.5-5.0); Albumin Globulin Ratio 1.3 (1.0-2.8); Alkaline Phosphatase 206 U/L (38-126); Aspartate Aminotransferase 23 IU/L (14-36); BUN Creatinine Ratio 24.2 (6-22); Bilirubin Total 0.6 mg/dL (0.2-1.3); Blood Urea Nitrogen 24 mg/dL (7-17); Chloride 107 mmol/L (98-107); Estimated Glomerular Filt Rate > 60.0 mL/min (>60); Globulin 3.7 g/dL (1.7-4.1); HEMOLYSIS < 15 (0-50); Lactate (Lactic Acid) 1.7 mmol/L (0.7-2.1); Sodium 141 mmol/L (137-145); Total Protein 8.6 g/dL (6.3-8.2)
[2019-11-20 17:15] LABS: Procalcitonin 0.06 ng/mL (<0.5)
[2019-11-20 17:25] LABS: Carbon Dioxide < 5 mmol/L (22-32)
[2019-11-20 17:26] LABS: Glucose 618 mg/dL (70-100)
[2019-11-20 17:27] LABS: Ketones (Beta-Hydroxybutyrate) 17.5 mmol/L (<0.27)
[2019-11-20] MEDS: SODIUM CHLORIDE 0.9% 1,000 ML 150 ML IV (17:47)
[2019-11-20] MEDS: INSULIN DRIP PREMIX 100 UNIT/100 ML PLAST..BAG 6 UNIT IV (17:59)
[2019-11-20 18:00] VITALS: BP 120/71; PULSE 130; RESP 22; O2SAT 100
[2019-11-20 18:15] VITALS: PULSE 130; RESP 16; O2SAT 100
[2019-11-20 19:01] LABS: COVID19 -Nasal RAPID Negative (Negative)
--- NOTE | 2019-11-20 19:21 | PC.NURSE ---
1900- Admit to room 227. Alert but ill looking, pale and frail. Patient states she is having abdominal discomfort. Tele 146 heart rate. Insulin gtt infusing at 6ml/hr waiting on BMP result. BG at bedside greater than 500. NS infusing at 150cc/hr. Patient voided at bedside, assisted with a gown and oriented to the room. Will monitor.
[2019-11-20 19:25] LABS: Blood Urea Nitrogen 25 mg/dL (7-17); Calcium 9.2 mg/dL (8.4-10.2); Chloride 110 mmol/L (98-107); Estimated Glomerular Filt Rate > 60.0 mL/min (>60); Sodium 143 mmol/L (137-145)
[2019-11-20 19:26] LABS: HEMOLYSIS 97 (0-50)
[2019-11-20 19:28] LABS: Carbon Dioxide < 5 mmol/L (22-32)
[2019-11-20 19:29] LABS: Glucose 569 mg/dL (70-100)
[2019-11-20 19:30] LABS: Potassium 5.1 mmol/L (3.4-5.1)
--- NOTE | 2019-11-20 19:32 | PM.HP.1 ---
History of Present Illness History of Present Illness Date Patient Seen: 11/20/19 Time Patient Seen: 19:32 Chief complaint: states DKA Narrative: This is a 29 year old female with DKA and Diarrhea. She is a long time type 1 diabetic with frequent admissions to this hospital for diabetic ketoacidosis. She has recently resumed care with a new maintenance mechanic technician in [place] with subsequent increase in her Tresiba to 53 units daily. Her last A1c is unclear but they have been consistently greater than 14 during her recent admissions here. She recently was evaluated for a scalp cyst infection which was surgically removed with a resultant slow healing wound followed weekly at the wound care center here. Last night she had some chicken that she blames for the diarrhea that started the process of her sugars reaching ?high? on her meter and staying that way. She eventually came in, unable to get them down in her usual manner. She says her sugars are usually in the 200s. On admission in the emergency department she has ketones of 17.5 with alkphos of 200, glucose of 565 and of VBG pH of 7.03 with less than 5 CO2/bicarb. Patient History Medical History DKA (diabetic ketoacidoses) (Resolved) History of pyelonephritis (Resolved) Irregular menstrual cycle (Acute) Migraine headache (Chronic) Nephrolithiasis (Resolved) Type 1 diabetes mellitus (Chronic) Surgical History History of ureter stent (Resolved) Hx of local excision of skin lesion (Acute) Status post laser lithotripsy of ureteral calculus (Acute) [place] teeth extracted (Acute) Family & Social History Family History Father In good health Mother Cardiac disease Social History: household members significant other,family Tobacco & Substance use: Smoking Status Never smoker alcohol intake current alcohol intake frequency holiday/special occasion Substance Use Type does not use Comment: Her backup decision maker is her significant other Reggie Gonzales. Meds Home Medications and Allergies Home Medications Medication Instructions Recorded Confirmed Type glucose 4 gram PO Q15M PRN #30 tab 12/12/18 11/18/19 Rx Glucagon Emergency Kit (human) 1 mg SUBCUT DIRECTED 02/16/19 11/18/19 History insulin lispro [Humalog KwikPen See Rx Instructions .ROUTE 03/10/19 11/18/19 Rx Insulin] .COMPLEX #0 ml hydroxyzine pamoate [Vistaril] 50 mg PO QID PRN 30 Days #20 cap 10/30/19 11/18/19 Rx insulin aspart U-100 [Novolog 7 unit SUBCUT AC #30 ml 10/30/19 11/18/19 Rx Flexpen U-100 Insulin] insulin degludec [Tresiba 50 unit SUBCUT DAILY 30 Days 10/30/19 11/18/19 Rx FlexTouch U-100] oxycodone 5 mg tablet 5 mg PO Q6H PRN #30 tab 11/18/19 11/18/19 Rx Allergies Allergy/AdvReac Type Severity Reaction Status Date / Time arredondo [ARREDONDO] Allergy Intermediate Hives, Verified 11/20/19 16:01 pruritus iodine [IODINE] Allergy Intermediate rash, itchy Verified 11/20/19 16:01 morphine Allergy Intermediate Difficulty Verified 11/20/19 16:01 Breathing shellfish derived Allergy Intermediate rash Verified 11/20/19 16:01 [SHELLFISH DERIVED] adhesive [ADHESIVE] Allergy Unknown tape Verified 11/20/19 16:01 latex [LATEX] Allergy Unknown Hives Verified 11/20/19 16:01 Review of Systems Review of Systems Narrative: Positive for diarrhea, diffuse myalgia, high blood sugars. Negative for fevers, chills, sweats, nausea, vomiting, rashes, chest pain, shortness of breath, bleeding, joint pain, seizures, headaches, new allergies, difficulty walking, dysuria. ROS: Yes All systems reviewed with the patient and are negative except as otherwise documented Exam Vital Signs (past 8 hours): - 11/20/19 16:01 11/20/19 16:30 11/20/19 18:00 Temperature 98.6 F Pulse Rate 140 H 129 H 130 H Respiratory Rate 30 H 22 22 Blood Pressure 131/89 139/87 120/71 Pulse Oximetry 97 98 100 11/20/19 18:15 Temperature Pulse Rate 130 H Respiratory Rate 16 Blood Pressure Pulse Oximetry 100 Oxygen Delivery Method Room Air Narrative Exam Narrative: She is alert and oriented x3. She appears to be in moderate distress from ongoing myalgia. Pupils are equally round reactive to light and accommodation. Extraocular muscles are intact. No lymph nodes are felt head, neck, supraclavicular area There is no thyromegaly. JVD is less than 6 cm. No carotid bruits are heard. Throat looks normal. Heart is tachycardic, regular rhythm without murmur. Lungs are clear to auscultation bilaterally. Abdomen is soft, scaphoid, nontender, no organomegaly. Extremities have no ankle edema Skin no rash or jaundice. There is a special type dressing covering a vertex scalp wound measuring approximately 1 cm of unclear depth. The dressing is not easily removed without discomfort from all the hair it is attached 2. This is being examined weekly at the wound care center. Neuro exam motor function is 5/5 throughout There is no tremor Sensation is not tested Cranial nerves 2-12 test intact. Objective ECG Impression: SINUS TACHYCARDIA Mild ST DEPRESSION [0.05+ mV ST DEPRESSION], Cannot R/O ischemia Labs Result Diagrams: 11/20/19 16:10 11/20/19 19:07 Labs: Laboratory Results - last 24 hr 11/20/19 11/20/19 11/20/19 16:10 16:10 16:10 WBC 8.7 RBC 4.59 Hgb 15.1 Hct 48.0 H MCV 104.5 H MCH 32.9 MCHC 31.5 RDW 13.9 Plt Count 514 H Neut % (Auto) 67.3 Lymph % (Auto) 27.0 [place] % (Auto) 3.2 Eos % (Auto) 0.1 L Baso % (Auto) 2.4 H Neut # (Auto) 5900 Lymph # (Auto) 2400 [place] # (Auto) 300 Eos # (Auto) 0 Baso # (Auto) 200 H VBG pH VBG pCO2 VBG pO2 VBG HCO3 VBG Total CO2 VBG O2 Saturation VBG Base Excess Sodium 141 Potassium 5.0 Chloride 107 Carbon Dioxide < 5 L* BUN 24 H Creatinine 0.99 Estimated GFR > 60.0 BUN/Creatinine Ratio 24.2 H Glucose 618 H* Lactate Calcium 10.0 Total Bilirubin 0.6 AST 23 ALT 23 Alkaline Phosphatase 206 H Total Protein 8.6 H Albumin 4.9 Globulin 3.7 Albumin/Globulin Ratio 1.3 Procalcitonin 0.06 Ketones 17.5 H COVID-19 PCR 11/20/19 11/20/19 11/20/19 16:10 16:10 17:52 WBC RBC Hgb Hct MCV MCH MCHC RDW Plt Count Neut % (Auto) Lymph % (Auto) [place] % (Auto) Eos % (Auto) Baso % (Auto) Neut # (Auto) Lymph # (Auto) [place] # (Auto) Eos # (Auto) Baso # (Auto) VBG pH 7.03 L* VBG pCO2 13.6 L VBG pO2 51 H VBG HCO3 4 L VBG Total CO2 < 5 L VBG O2 Saturation 70 VBG Base Excess -27.0 L Sodium Potassium Chloride Carbon Dioxide BUN Creatinine Estimated GFR BUN/Creatinine Ratio Glucose Lactate 1.7 Calcium Total Bilirubin AST ALT Alkaline Phosphatase Total Protein Albumin Globulin Albumin/Globulin Ratio Procalcitonin Ketones COVID-19 PCR Negative 11/20/19 19:07 WBC RBC Hgb Hct MCV MCH MCHC RDW Plt Count Neut % (Auto) Lymph % (Auto) [place] % (Auto) Eos % (Auto) Baso % (Auto) Neut # (Auto) Lymph # (Auto) [place] # (Auto) Eos # (Auto) Baso # (Auto) VBG pH VBG pCO2 VBG pO2 VBG HCO3 VBG Total CO2 VBG O2 Saturation VBG Base Excess Sodium 143 Potassium 5.1 Chloride 110 H Carbon Dioxide < 5 L* BUN 25 H Creatinine 1.04 Estimated GFR > 60.0 BUN/Creatinine Ratio 24.0 H Glucose 569 H* Lactate Calcium 9.2 Total Bilirubin AST ALT Alkaline Phosphatase Total Protein Albumin Globulin Albumin/Globulin Ratio Procalcitonin Ketones COVID-19 PCR Assessment & Plan Assessment & Plan narrative: Diabetic Ketoacidosis, present on admission. Active -VBG ph 7.03 with ketones of 17 -begin ICU protocol of IV fluids, IV insulin drip, close monitoring of blood sugars and ketones along with electrolytes every 3 hours. -transition to D5 IV fluid infusion and then to her usual Tresiba dosing with correctional scale insulin with CHO diet to follow. She usually makes this correction within 12-24 hours. -No further diarrhea noted here Diarrhea, present on admission. Active -Plan stool culture and Cdiff if diarrhea continues -she attributes this to some ?bad chicken? which appears to be resolving. Diffuse Myalgia, present on admission. Active -she reports, and the ICU nurses who know her well confirm, that her diffuse body aching while experiencing DKA responds to IV Dilaudid with Benadryl IV for the itching. Scalp Wound, present on admission. Chronic -unable to easily remove the dressing today but by her report she has this done once a week at the wound care center and there are no signs of an infection or worsening condition around this area. COVID-19 COVID-19 status: Negative Result date/Date tested (Pos, Neg/Pending): 11/20/19
[2019-11-20 20:00] VITALS: BMI 17.6
[2019-11-20 20:28] VITALS: BP 100/59; PULSE 140; RESP 27
[2019-11-20] MEDS: diphenhydrAMINE 50 MG/ML VIAL 25 MG IV ×2 (20:33→22:40)
[2019-11-20 22:29] VITALS: BP 118/72; PULSE 134; RESP 18
[2019-11-20] MEDS: SODIUM CHLORIDE 0.45% 1,000 ML 100 ML IV (22:41)
[2019-11-20 23:04] LABS: BUN Creatinine Ratio 27.2 (6-22); Blood Urea Nitrogen 28 mg/dL (7-17); Calcium 9.5 mg/dL (8.4-10.2); Chloride 117 mmol/L (98-107); Estimated Glomerular Filt Rate > 60.0 mL/min (>60); Glucose 147 mg/dL (70-100); HEMOLYSIS < 15 (0-50); Potassium 4.5 mmol/L (3.4-5.1); Sodium 146 mmol/L (137-145)
[2019-11-20 23:07] LABS: Carbon Dioxide 9 mmol/L (22-32)
[2019-11-20 23:09] LABS: Phosphorous 4.2 mg/dL (2.5-4.5)
[2019-11-20] MEDS: DEXTROSE 5%-0.45% NS 1,000 ML 100 ML IV (23:45)
[2019-11-20] MEDS: POTASSIUM CHLORIDE 20 MEQ in SODIUM CHLORIDE 0.9% 250 ML 130 ML IV (23:45)
[2019-11-21] VITALS (12 sets, daily range): BP systolic 93–114; BP diastolic 51–75; PULSE 96–118; RESP 7–17; TEMP 36.3–36.9; O2SAT 94–100
--- NOTE | 2019-11-21 02:28 | PC.NURSE ---
0200- Patient has required pain medication with benadryl IV every 3hour. Will check gap with AM labs. Last two BG have been in the low 114-128 range. Insulin infusing at 1 unit per hour per protocol. Gap calculated with 2330 lab, remains open at 20. Sugar source started at 2330 per protocol. Will monitor.
[2019-11-21] MEDS: HYDROMORPHONE 1 MG INJ IV ×3 (02:33→09:04)
[2019-11-21] MEDS: diphenhydrAMINE 50 MG/ML VIAL 25 MG IV ×3 (02:33→09:04)
--- NOTE | 2019-11-21 04:48 | PC.NURSE ---
PT TEARFUL AND SOBBING IN BED - REPORTS PAIN EVERYWHERE DECLINED WARM BLANKET AND OTHER ATTEMPTS OF NON-MEDICATION WAYS TO RELIEVE PAIN- REPORTED SHE'LL WAIT UNTIL TIME TO RECEIVE ANJALIID/BAILEY
[2019-11-21 05:41] LABS: BUN Creatinine Ratio 29.6 (6-22); Blood Urea Nitrogen 29 mg/dL (7-17); Calcium 9.3 mg/dL (8.4-10.2); Carbon Dioxide 15 mmol/L (22-32); Chloride 117 mmol/L (98-107); Estimated Glomerular Filt Rate > 60.0 mL/min (>60); Glucose 117 mg/dL (70-100); HEMOLYSIS < 15 (0-50); Sodium 142 mmol/L (137-145)
[2019-11-21] MEDS: Insulin Degludec [Tresiba Flextouch U-100] 53 EACH SUBCUT (08:02)
--- NOTE | 2019-11-21 09:18 | CM.IDA ---
Initial DCP Assessment Note Patient is a 29 yo female, resident of [place], [place]. Patient presents with DKA. PCP: [facility] Sabine Tompkins Payer: [facility] Patient familiar to this CANDY MAKER from prior admissions. Patient is a residential Type I Diabetic, established now with out of school hours care worker Sabine Tompkins, also seen weekly at the wound care clinic to change dressings of a slow healing scalp wound w/ h/o I+D. Met w/patient this morning to say kamaljit, review DCP. DC order in place. Patient will DC home w/bf and family and continue close outpt f/u. Patient states she and her out of school hours care worker are working on trying to get an insulin pump covered by her insurance. This CANDY MAKER asks if Jessica has heard from the Case Management team through [facility] and she answers no. This CANDY MAKER explained that the last time patient was admitted, this CANDY MAKER spoke w/a CM at [facility] and this person suggested contact was and will continue to be attempted w/patient. As today is Saturday, will not be able to contact [facility]. Asked if patient was scheduling time w/ pin maker Luanne Barreto and patient says she hasn't been able to do that since being busy making other appts, plans to call Luanne Barreto soon, this CANDY MAKER encouraged her to do so this week. Lastly, asked if there are other barriers patient could identify that have made it difficult to make medical appts, get to medical appts etc? Patient cannot identify any barriers or ways this CANDY MAKER can assist today. DC home w/family, close outpt f/u, no additional needs from this CANDY MAKER RAYMOND Loza
--- NOTE | 2019-11-21 09:43 | DIET.PN ---
Dietary Progress Note Assessment: 29y F admitted for DKA c diarrhea referred to nutrition for recent weight loss. 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 HT: 154.9cm WT: 42.2kg UBW: 47kg BMI: 17.6 Labs: CO2: 9 L, Cl- 117 H, BUN 28 H, admit BG 565 H, alk phos 206 H, ketones 17.5 H Nutrition Diagnosis: Severe Acute on Chronic PCM r/t poorly controlled DM1 aeb 10.5% unintentional weight loss in 3w (severe), BMI 17.6 (severe), pt repeat admissions for DKA c current admission BG 565 c ketones 17.5. Interventions: 1. To support PCM while inpatient and BGs closely monitored, will add protein and healthy fats to all pt meal trays. Pt eGFR WNL. 2. Recc Dom bid to support scalp wound healing Diet Order: CCD2 EER: 1500kcal (35kcal/kg per PCM), 65g PRO (1.5g/kg per PCM) Monitoring/Evaluations: RD/PERFECTOE to f/u Saturday
--- NOTE | 2019-11-21 11:11 | P.DS_ITS ---
History of Present Illness History of Present Illness Date Patient Seen: 11/20/19 Chief complaint: states DKA Narrative: Written by Dr. Dubon: This is a 29 year old female with DKA and Diarrhea. She is a long time type 1 diabetic with frequent admissions to this hospital for diabetic ketoacidosis. She has recently resumed care with a new edger machine operator in [place] with subsequent increase in her Tresiba to 53 units daily. Her last A1c is unclear but they have been consistently greater than 14 during her recent admissions here. She recently was evaluated for a scalp cyst infection which was surgically removed with a resultant slow healing wound followed weekly at the wound care center here. Last night she had some chicken that she blames for the diarrhea that started the process of her sugars reaching ?high? on her meter and staying that way. She eventually came in, unable to get them down in her usual manner. She says her sugars are usually in the 200s. On admission in the emergency department she has ketones of 17.5 with alkphos of 200, glucose of 565 and of VBG pH of 7.03 with less than 5 CO2/bicarb. Discharge Providers Provider Date of admission: 11/20/19 18:20 Discharge Date: 11/21/19 Primary care physician: Gale Arita MD Consults: 11/20/19 20:13 Consult to Dietitian, Adult Routine Comment: Reason For Exam: large weight loss, diabetes Discharge provider: Susy Vargas DO Summary Hospital Course Discharge Diagnosis: 1. Acute diabetic ketoacidosis, in setting of uncontrolled diabetes mellitus type 1, present on admission. DKA resolved. 2. Acute diarrhea, present on admission. Resolved. 3. Diffuse myalgias, present on admission. Resolved. 4. Scalp abscess status post I&D with chronic wound, present on admission. S table. Hospital Course: Sarabjit Jimenes is a 29-year-old female with a past medical history significant for type 1 diabetes with recurrent DKA, prior fungal pyelolithiasis, and recent scalp abscess status post I&D and is followed by wound care weekly, who presented to the ED with complaints of diarrhea and DKA. 1. Acute diabetic ketoacidosis, in setting of uncontrolled diabetes mellitus type 1, present on admission. DKA resolved. -Hemoglobin A1c >14% on 10/29/19 reflective of poor glycemic control likely due to medical non-compliance in regard to medications and undoubtedly diet. -Patient has had multiple recurrent DKA hospitalizations with most recent from 11/05/19-11/07/19 which was 2 weeks prior to admission of which the patient s eems to be having more frequent hospitalizations for DKA which is a poor prognostic indicator. -Initial blood glucose 618. Serum ketones 17.5. VBG pH 7.03. -Chest x-ray on showed no acute cardiopulmonary process. COVID-19 negative. WBC normal and procalcitonin negative. No infectious etiology found other than possible food poisoning or viral gastroenteritis as patient reports she ate ?bad chicken? with resultant diarrhea. No recurrence of diarrhea during hospitalization as below. -Initiated DKA protocol with insulin gtt, fluid replacement with normal saline then transitioned to 0.45% normal saline and then D5 0.45% normal saline until blood glucose was less than 250. Monitored of blood glucose and electrolytes every 4 hours until anion gap closed and replaced electrolytes as necessary. Transitioned off insulin gtt and restarted home regimen. -Continued Tresiba 53 units daily, nutritional insulin with Humalog increased from 7 units with meals and medium dose correctional scale insulin. -Reinforced need for routine blood glucose checks, corrected insulin management and appropriate diet. Recommended food journal and glucose logs. Patient reports new edger machine operator at [facility] is trying to acquire insulin pump and continuous blood glucose monitor. -Consulted dietitian to reinforce dietary management and we appreciate her time and recommendations. Recommend outpatient referral to DSME (diabetic self- management education) for which the patient reports she plans to call [facility] adaptive physical educator on Saturday. 2. Acute diarrhea, present on admission. Resolved. -Patient reports she ate some bad chicken and had diarrhea immediately after with some associated nausea but no vomiting. -GI stool PCR not performed as patient had no recurrence of diarrhea. 3. Diffuse myalgias, present on admission. Resolved. -Patient reports she has diffuse body aching while experiencing DKA which responds to IV Dilaudid with Benadryl IV for the itching for which the patient received and myalgias resolved with treatment of DKA. 4. Scalp abscess status post I&D with chronic wound, present on admission. Stable. -Unable to easily remove the dressing today but by her report she has this done once a week at the wound care center and there are no signs of an infection or worsening condition around this area. No antibiotics indicated at this time. Exam Vital Signs (past 8 hours): - 11/21/19 03:25 11/21/19 04:13 11/21/19 05:29 Temperature 97.3 F L 98.4 F Pulse Rate 110 H 106 H 100 H Respiratory Rate 12 8 L 10 L Blood Pressure 93/56 L 97/62 111/71 Pulse Oximetry 98 96 100 11/21/19 06:35 11/21/19 07:10 11/21/19 08:00 Temperature 97.6 F Pulse Rate 107 H 103 H 96 H Respiratory Rate 7 L 12 Blood Pressure 103/61 95/52 L 110/75 Pulse Oximetry 94 95 100 11/21/19 09:51 11/21/19 10:35 Temperature Pulse Rate 109 H 104 H Respiratory Rate 10 L 8 L Blood Pressure Pulse Oximetry 94 Oxygen Delivery Method Room Air Oxygen Flow Rate 0 Narrative Exam Narrative: General: Young female lying in bed comfortably and in no acute distress, appears slightly flushed and chronically ill, thin and appears to have lost weight since last seen, emotionally labile, otherwise appropriately interactive. HEENT: Normocephalic, atraumatic. External ears without defect. Pupils equal, round, and reactive to light. Anicteric sclerae, moist conjunctivae, and no lid lag. Oropharynx free of erythema and cobble stoning with moist mucosa. Previous wound on scalp with dressing in place and minimal dried drainage on dressing otherwise clear, dry and intact without surrounding cellulitis. Neck: Supple with full range of motion. No lymphadenopathy or thyromegaly. Cardiovascular: Regular rate and rhythm without murmurs, rubs, or gallops appreciated Pulmonary: Clear to auscultation bilaterally without crackles, wheezes, or rhonchi. Normal respiratory effort with no use of accessory muscles. Abdomen: Soft, bowel sounds present, nontender, nondistended. No hepatosplenomegaly or masses appreciated. Extremities: No clubbing, cyanosis, or edema. Skin: Normal temperature, turgor, and texture; no rash, ulcers, or subcutaneous nodules appreciated. Neurological: Cranial nerves grossly intact. Psychiatric: Depressed mood and flat affect. Slightly irritable and emotionally labile when discussing DKA and diabetic management. Alert and oriented to person, place, and time. Objective Labs Result Diagrams: 11/20/19 16:10 11/21/19 04:30 Labs: Laboratory Results - last 24 hr 11/20/19 11/20/19 11/20/19 16:10 16:10 16:10 WBC 8.7 RBC 4.59 Hgb 15.1 Hct 48.0 H MCV 104.5 H MCH 32.9 MCHC 31.5 RDW 13.9 Plt Count 514 H Neut % (Auto) 67.3 Lymph % (Auto) 27.0 Kendall % (Auto) 3.2 Eos % (Auto) 0.1 L Baso % (Auto) 2.4 H Neut # (Auto) 5900 Lymph # (Auto) 2400 Kendall # (Auto) 300 Eos # (Auto) 0 Baso # (Auto) 200 H VBG pH VBG pCO2 VBG pO2 VBG HCO3 VBG Total CO2 VBG O2 Saturation VBG Base Excess Sodium 141 Potassium 5.0 Chloride 107 Carbon Dioxide < 5 L* BUN 24 H Creatinine 0.99 Estimated GFR > 60.0 BUN/Creatinine Ratio 24.2 H Glucose 618 H* Lactate Calcium 10.0 Phosphorus Magnesium Total Bilirubin 0.6 AST 23 ALT 23 Alkaline Phosphatase 206 H Total Protein 8.6 H Albumin 4.9 Globulin 3.7 Albumin/Globulin Ratio 1.3 Procalcitonin 0.06 Ketones 17.5 H COVID-19 PCR 11/20/19 11/20/19 11/20/19 16:10 16:10 17:52 WBC RBC Hgb Hct MCV MCH MCHC RDW Plt Count Neut % (Auto) Lymph % (Auto) Kendall % (Auto) Eos % (Auto) Baso % (Auto) Neut # (Auto) Lymph # (Auto) Kendall # (Auto) Eos # (Auto) Baso # (Auto) VBG pH 7.03 L* VBG pCO2 13.6 L VBG pO2 51 H VBG HCO3 4 L VBG Total CO2 < 5 L VBG O2 Saturation 70 VBG Base Excess -27.0 L Sodium Potassium Chloride Carbon Dioxide BUN Creatinine Estimated GFR BUN/Creatinine Ratio Glucose Lactate 1.7 Calcium Phosphorus Magnesium Total Bilirubin AST ALT Alkaline Phosphatase Total Protein Albumin Globulin Albumin/Globulin Ratio Procalcitonin Ketones COVID-19 PCR Negative 11/20/19 11/20/19 11/20/19 19:07 22:45 22:45 WBC RBC Hgb Hct MCV MCH MCHC RDW Plt Count Neut % (Auto) Lymph % (Auto) Kendall % (Auto) Eos % (Auto) Baso % (Auto) Neut # (Auto) Lymph # (Auto) Kendall # (Auto) Eos # (Auto) Baso # (Auto) VBG pH VBG pCO2 VBG pO2 VBG HCO3 VBG Total CO2 VBG O2 Saturation VBG Base Excess Sodium 143 146 H Potassium 5.1 4.5 Chloride 110 H 117 H Carbon Dioxide < 5 L* 9 L* BUN 25 H 28 H Creatinine 1.04 1.03 Estimated GFR > 60.0 > 60.0 BUN/Creatinine Ratio 24.0 H 27.2 H Glucose 569 H* 147 H D Lactate Calcium 9.2 9.5 Phosphorus 4.2 Magnesium Total Bilirubin AST ALT Alkaline Phosphatase Total Protein Albumin Globulin Albumin/Globulin Ratio Procalcitonin Ketones COVID-19 PCR 11/20/19 11/21/19 22:45 04:30 WBC RBC Hgb Hct MCV MCH MCHC RDW Plt Count Neut % (Auto) Lymph % (Auto) Kendall % (Auto) Eos % (Auto) Baso % (Auto) Neut # (Auto) Lymph # (Auto) Kendall # (Auto) Eos # (Auto) Baso # (Auto) VBG pH VBG pCO2 VBG pO2 VBG HCO3 VBG Total CO2 VBG O2 Saturation VBG Base Excess Sodium 142 Potassium 5.0 Chloride 117 H Carbon Dioxide 15 L BUN 29 H Creatinine 0.98 Estimated GFR > 60.0 BUN/Creatinine Ratio 29.6 H Glucose 117 H Lactate Calcium 9.3 Phosphorus Magnesium 2.0 Total Bilirubin AST ALT Alkaline Phosphatase Total Protein Albumin Globulin Albumin/Globulin Ratio Procalcitonin Ketones COVID-19 PCR Discharge Plan Discharge Plan Patient Disposition: Home Discharge comment: You are being discharged home. You had DKA which has been treated with IV insulin and electrolyte replacement. It is unclear what caused you to go into DKA but possibly due to food poisoning or a viral gastroenteritis. Continue your home medications as previously prescribed. Please follow-up with your edger machine operator as soon as possible regarding your hospitalization and continue the process of acquiring insulin pump and contin uous blood glucose monitor. Please follow-up with dietitian and diabetic Education. Please continue to follow-up with wound care, Dr. Morris, as previously scheduled for your healing scalp wound. Discharge orders & Medications Prescriptions: Continued glucose 4 gram tablet,chewable 4 gram PO Q15M PRN (Reason: hypoglycemia) Qty: 30 RF: 0 Glucagon Emergency Kit (human) 1 mg recon soln 1 mg subcut DIRECTED RF: 0 insulin aspart U-100 [Novolog Flexpen U-100 Insulin] 100 unit/mL (3 mL) Insulin Pen 7 unit SUBCUT AC Qty: 30 RF: 0 hydroxyzine pamoate [Vistaril] 50 mg capsule 50 mg PO QID PRN (Reason: itching) 30 Days Qty: 20 RF: 0 insulin degludec 200 unit/mL (3 mL) Insulin Pen 53 unit SUBCUT DAILY RF: 0 Discontinued oxycodone 5 mg tablet 5 mg PO Q6H PRN (Reason: pain) Qty: 30 RF: 0 Follow up/Referrals: Gale Arita MD [Primary Care Provider] - Diet/Activity/Treatments Diet: Carb-consistent/Diabetic Diet comment: low carb, low fat Activity: Activity as tolerated Visit Report/Discharge Packet Instructions: DI for Food Poisoning, Carbohydrate-Counting Diet, DI for Diabetic Ketoacidosis Visit Report Forms: Patient Portal/API, Stroke Signs & Symptoms Discharge Data Primary Care Provider: Gale Arita Discharges patient from system. Discharge Date/Time: 11/21/19 14:11
[2019-11-21] MEDS: INSULIN ASPART 100 UNIT/ML INSULN PEN 7 UNIT SUBCUT (12:55)
[2019-11-21] MEDS: INSULIN ASPART 100 UNIT/ML INSULN PEN SUBCUT (12:56)
[2019-11-21 22:08] LABS: Acinetobacter baumannii Not Detected (Not Detect); Candida albicans Not Detected (Not Detect); Candida glabrata Not Detected (Not Detect); Candida krusei Not Detected (Not Detect); Candida parapsilosis Not Detected (Not Detect); Candida tropicalis Not Detected (Not Detect); E. coli Not Detected (Not Detect); Enterobacter cloacae complex Not Detected (Not Detect); Enterobacteriaceae species Not Detected (Not Detect); Enterococcus species Not Detected (Not Detect); Haemophilus influenzae Not Detected (Not Detect); Listeria monocytogenes Not Detected (Not Detect); Neisseria meningitidis Not Detected (Not Detect); Proteus species Not Detected (Not Detect); Pseudomonas aeruginosa Not Detected (Not Detect); Serratia marcescens Not Detected (Not Detect); Staphylococcus species Not Detected (Not Detect); Streptococcus agalactiae (Gr B Not Detected (Not Detect); Streptococcus pneumonia Not Detected (Not Detect); Streptococcus pyogenes (Gr A) Not Detected (Not Detect); Streptococcus species Not Detected (Not Detect)
== END 2019-11-21 14:11 | disposition home or self-care (01) | DRG 637 ==
LOC: ED 17:55 → ICU 18:21
PROVIDERS: Family Medicine; Admitting Provider Internal Medicine; Emergency Provider Emergency Medicine; PCP Internal Medicine; Referring Provider Emergency Medicine; Visit Provider Internal Medicine
DX: E10.10 Type 1 diabetes mellitus with ketoacidosis without coma (principal); E43 Unspecified severe protein-calorie malnutrition; R19.7 Diarrhea, unspecified; M79.10 Myalgia, unspecified site; S01.00XD Unspecified open wound of scalp, subsequent encounter; Z11.59 Encounter for screening for other viral diseases
CPT/HCPCS: 36415; 71045; 80048; 80053; 82009; 82805; 82962; 83605; 83735; 84100; 84145; 85025; 87040; 87150; 87205; 87635; 93005; 96361; 96365; 96375; 96376; 99285; J1170; J1200; J2405; J3480; J7050

== ENCOUNTER 2019-11-22 14:29 | Inpatient (IN) | payer MEDICAID, SELFPAY ==
[2019-11-22] VITALS (12 sets, daily range): BP systolic 121–155; BP diastolic 74–99; PULSE 110–146; RESP 16–41; TEMP 36.4–36.9; O2SAT 98–100; BMI 17.0
--- NOTE | 2019-11-22 14:53 | DI.RAD.S_ITS ---
PROCEDURE: XR CHEST 1V INDICATIONS: elevated glucose, hx DKA TECHNIQUE: One view of the chest was acquired. COMPARISON: [facility], CT, CT CHEST ABD PEL W CON, 02/28/2019, 15:03. [facility], CR, XR CHEST 1V, 02/27/2019, 11:31. [facility], CR, XR CHEST 1V, 03/08/2019, 13:40. [facility], CR, XR CHEST 2V, 09/29/2019, 15:43. [facility], CR, XR CHEST 1V, 11/20/2019, 16:18. FINDINGS: Surgical changes and devices: None. Lungs and pleura: Lungs are clear. No pleural effusions or pneumothorax. Mediastinum: Mediastinal contours appear normal. Heart size is normal. Bones and chest wall: No suspicious bony lesions. Overlying soft tissues appear unremarkable. IMPRESSION: Portable chest study within normal limits. Stable from prior. Dictated by: Remi Polanco M.D. on 11/22/2019 at 14:58 Approved by: Remi Polanco M.D. on 11/22/2019 at 14:58
--- NOTE | 2019-11-22 15:21 | ED.GENADULT ---
HPI - General Adult <SHARYN Walters - Last Filed: 11/22/19 20:09> General Chief complaint: Diabetic Problem Stated complaint: DKA Time Seen by Provider: 11/22/19 14:52 Source: patient Mode of arrival: Family Vehicle Limitations: no limitations History of Present Illness HPI narrative: This is a 29-year-old female, nonsmoker, who has been coming into ED frequently for DKA presents to ED with her fiance with chief complain of DKA. She reports pain all over and not feeling well. Patient reports her symptoms started this morning. She states has been compliant with her medication with Humalog for sliding scale and 53 units of Tresiba daily at 11 am except today's dose. Patient denies fever, chills, nausea or vomiting. Patient denies recent cough or cold symptoms. She denies urinary symptoms. Patient denies unusual vaginal discharge, abdominal pain, diarrhea. She has been seeing at wound care for lesion on top of her head scalp and reports this has been improving. Patient denies increasing pain, redness, swelling, warm to touch on affected site. Patient denies other skin lesions. Related Data Home Medications Medication Instructions Recorded Confirmed Glucagon Emergency Kit (human) 1 mg SUBCUT DIRECTED 02/16/19 11/22/19 insulin degludec 53 unit SUBCUT DAILY 11/21/19 11/22/19 Previous Rx's Medication Instructions Recorded glucose 4 gram PO Q15M PRN #30 tab 12/12/18 hydroxyzine pamoate [Vistaril] 50 mg PO QID PRN 30 Days #20 cap 10/30/19 insulin aspart U-100 [Novolog 7 unit SUBCUT AC #30 ml 10/30/19 Flexpen U-100 Insulin] Allergies Allergy/AdvReac Type Severity Reaction Status Date / Time abdalla [ABDALLA] Allergy Intermediate Hives, Verified 11/22/19 14:46 pruritus iodine [IODINE] Allergy Intermediate rash, itchy Verified 11/22/19 14:46 morphine Allergy Intermediate Difficulty Verified 11/22/19 14:46 Breathing shellfish derived Allergy Intermediate rash Verified 11/22/19 14:46 [SHELLFISH DERIVED] adhesive [ADHESIVE] Allergy Unknown tape Verified 11/22/19 14:46 latex [LATEX] Allergy Unknown Hives Verified 11/22/19 14:46 Review of Systems <SHARYN Walters - Last Filed: 11/22/19 20:09> Review of Systems Narrative: General: See HPI HEENT: Denies sinus pain, ear pain, sore throat, difficulty swallowing, dizziness. Respiratory: Denies dyspnea, cough, wheezing, hemoptysis, sputum. Cardiovascular: Denies chest pain, palpitations, orthopnea, edema. Gastrointestinal: Denies nausea, vomiting, abdominal pain, diarrhea, constipation, melena. : Denies dysuria, frequency, incontinence, hematuria, urinary retention. Musculoskeletal: Denies weakness, joint pain or bony pain, (+) generalized bodyaches. Skin: See HPI Neurologic: Denies weakness, headache, numbness, change in speech, confusion, seizures, incoordination. Psychiatric: No concerning psychosocial issues. 12-point review of systems is negative except for those stated above. Patient History <SHARYN Walters - Last Filed: 11/22/19 20:09> Medical History DKA (diabetic ketoacidoses) (Resolved) History of pyelonephritis (Resolved) Irregular menstrual cycle (Acute) Migraine headache (Chronic) Nephrolithiasis (Resolved) Type 1 diabetes mellitus (Chronic) Surgical History History of ureter stent (Resolved) Hx of local excision of skin lesion (Acute) Status post laser lithotripsy of ureteral calculus (Acute) [place] teeth extracted (Acute) Family History Father In good health Mother Cardiac disease Social History details: Engaged household members: significant other and family Smoking Status: Never smoker alcohol intake: current Smoking Status: Never smoker alcohol intake frequency: 0-2 drinks per day Substance Use Type: does not use Exam <SHARYN Walters - Last Filed: 11/22/19 20:09> Narrative Exam Narrative: GEN: Alert, oriented x 3, thin and ill appearing, moaning and crying. Head: Normal cephalic. No top of head scalp lesion, about 1.5 cm x 0.3 cm in size covered with foam dressing done at wound clinic. Scant serous and light purulent discharge. Surrounding scalp without warmth, redness, swelling. EYES: Pupils are equal, round, and reactive to light and accommodation. Extraocular muscles are intact bilaterally. There is no subconjunctival hemorrhage, exudate and sclera non-icteric. ENT: Hearing grossly intact. Nose without bleeding, purulent discharge or deviation. Facial sinuses nontender to palpate. Mucous membrane extremely dry. Throat without erythema, tonsillar hypertrophy or exudate. Uvula in midline, airway patent. Neck: Trachea in midline. No JVD, non-tender without lymphadenopathy. No masses or thyroid megaly. Supple, non-tender and no meningeal signs. CARDIAC: Normal regular tachy rate and rhythm without murmurs, gallops, or rubs. No chest wall tenderness. No peripheral edema, cyanosis or pallor. Capillary refill is less than 2 seconds. RESPIRATORY: Lungs are clear to auscultate bilaterally. No cough, wheezes, rales, or rhonchi. No stridor, respiratory distress, increase work of breathing, or accessary muscle used. ABD: Abdomen soft, nontender and non-distended. No guarding or rebound tenderness to palpate. Bowel sounds are normal in all 4 quadrants. There is no palpable masses or organomegaly. EXT: Full painless ROM of all extremities with no loss of sensation, strength, effusion or edema. SKIN: Warm, dry, normal color for patient. No erythema, lesions or rash over visible areas. BACK: Nontender without deformity or crepitance. No flank tenderness. NEUROLOGICAL: Alert and oriented to place, time and person. Sensation and motor function intact bilaterally. No facial droops, dysphasia. PSYCHIATRIC: No hallucinations or abnormal behaviors during the examination. Patient easily is irritable. Patient is not suicidal. Initial Vital Signs Initial Vital Signs: Vital Signs Temperature 98.5 F 11/22/19 14:43 Pulse Rate 146 H 11/22/19 14:43 Respiratory Rate 18 11/22/19 14:43 Blood Pressure 155/99 H 11/22/19 14:43 Pulse Oximetry 98 11/22/19 14:43 External Female Exam: normal external appearance, no erythema, no tenderness externally, no external swelling, no lesions, no lacerations, no ecchymosis and other (scant amount of light yellow discharge. Stand-by assistance by RAYNA Whitlock.) Speculum Exam - Vagina: no masses and nontender Speculum Exam - Cervix: nontender and other (Unable to tolerate speculum exam.) Bimanual Exam- Vagina & Uterus: normal bimanual exam, No tender and non-tender Bimanual Exam- Adnexa, other: no masses and no tenderness <Mike Emanuel MD - Last Filed: 11/24/19 08:08> Initial Vital Signs Initial Vital Signs: Vital Signs Temperature 98.5 F 11/22/19 14:43 Pulse Rate 146 H 11/22/19 14:43 Respiratory Rate 18 11/22/19 14:43 Blood Pressure 155/99 H 11/22/19 14:43 Pulse Oximetry 98 11/22/19 14:43 Scores <SHARYN Walters - Last Filed: 11/22/19 20:09> GCS Alex coma scale eye opening: Spontaneous Alex coma scale verbal response: Orientated [place] coma scale motor response: Obey commands Alex coma scale total score: 15 qSOFA Altered Mental Status (GCS <15): No Respiratory rate greater than/equal to 22: Yes Systolic blood pressure less than or equal to 100: No qSOFA Total: 1 0-1 Not High Risk 1-3 High risk Course <SHARYN Walters - Last Filed: 11/22/19 20:09> Course Course Narrative: The hospitalist BULK SEALER Omari kindly accepted patient's care for DKA admission to ICU. He was recommended changing IV fluids to 1/2 NS at 200 ml/HR from NS 0.9% and urine culture for fungal infection. Decision to Admit Date: 11/22/19 Decision to Admit time: 16:30 Orders Ordered: Acetaminophen (Tylenol) 650 mg VT Q4HR PRN PRN Reason: Fever/Mild Pain (1-3) Bisacodyl (Dulcolax) 10 mg PO DAILY PRN PRN Reason: Constipation Last Admin: 11/23/19 21:12 Dose: 10 mg Documented by: CWHITE Dextrose (D50w) 25 gm IV PRN PRN PRN Reason: Hypoglycemia Dextrose (D50w) 25 gm IV PRN PRN PRN Reason: Hypoglycemia Diphenhydramine HCl (Benadryl) 25 mg IV Q6HR PRN PRN Reason: Itching Last Admin: 11/23/19 21:12 Dose: 25 mg Documented by: LUIS EDUARDO Admin: 11/23/19 14:24 Dose: 25 mg Documented by: Admin: 11/23/19 03:36 Dose: 25 mg Documented by: JESSICA Docusate Sodium (Colace) 100 mg PO BID [facility] Last Admin: 11/23/19 21:12 Dose: 100 mg Documented by: LUIS EDUARDO Admin: 11/23/19 09:27 Dose: 100 mg Documented by: Admin: 11/22/19 21:41 Dose: 100 mg Documented by: MASON Heparin Sodium (Porcine) (Heparin) 5,000 unit SUBCUT BID [facility] Last Admin: 11/23/19 21:14 Dose: Not Given Documented by: LUIS EDUARDO Admin: 11/23/19 09:27 Dose: Not Given Documented by: Admin: 11/22/19 21:40 Dose: Not Given Documented by: MASON Hydromorphone HCl (Dilaudid) 1 mg IV Q3H PRN PRN Reason: Pain, Severe (7-10) Last Admin: 11/24/19 06:32 Dose: 1 mg Documented by: Admin: 11/24/19 03:10 Dose: 1 mg Documented by: Admin: 11/24/19 00:12 Dose: 1 mg Documented by: Admin: 11/23/19 21:13 Dose: 1 mg Documented by: LUIS EDUARDO Admin: 11/23/19 18:07 Dose: 1 mg Documented by: LUIS EDUARDO Admin: 11/23/19 14:24 Dose: 1 mg Documented by: Admin: 11/23/19 12:00 Dose: 1 mg Documented by: Admin: 11/23/19 08:50 Dose: 1 mg Documented by: Admin: 11/23/19 07:06 Dose: 1 mg Documented by: Admin: 11/23/19 03:36 Dose: 1 mg Documented by: Admin: 11/22/19 23:51 Dose: 1 mg Documented by: ESPERANZA Hydromorphone HCl (Dilaudid) 0.5 mg IV Q3H PRN PRN Reason: Pain, Moderate (4-6) Insulin Aspart (Novolog Flexpen) 0 unit SUBCUT ACHS [facility]; Protocol Last Admin: 11/23/19 21:14 Dose: Not Given Documented by: LUIS EDUARDO Admin: 11/23/19 17:08 Dose: 3 unit Documented by: LUIS EDUARDO Cosigned by: DYLLAN Insulin Aspart (Novolog Flexpen) 7 unit SUBCUT AC [facility] Last Admin: 11/23/19 17:09 Dose: 7 unit Documented by: LUIS EDUARDO Cosigned by: DYLLAN Metoclopramide HCl (Reglan) 10 mg IV Q6HR PRN PRN Reason: Nausea And Vomiting Naloxone HCl (Narcan) 0.2 mg IV Q2MIN PRN PRN Reason: Opiate Reversal Nf - Insulin Degludec (Tresiba) 53 Units 53 unit SUBCUT DAILY [facility] Last Admin: 11/23/19 11:54 Dose: 53 unit Documented by: JESSICA Discontinued Medications Diphenhydramine HCl (Benadryl) 25 mg IV NOW ONE Stop: 11/22/19 17:21 Last Admin: 11/22/19 17:25 Dose: 25 mg Documented by: SHERWIN Hydromorphone HCl (Dilaudid) 1 mg IV NOW ONE Stop: 11/22/19 15:32 Last Admin: 11/22/19 15:35 Dose: 1 mg Documented by: SCOTTY Hydromorphone HCl (Dilaudid) 1 mg IV NOW ONE Stop: 11/22/19 18:45 Last Admin: 11/22/19 18:48 Dose: 1 mg Documented by: SCOTTY Hydromorphone HCl (Dilaudid) 0.5 mg IV Q4H PRN PRN Reason: Pain, Moderate (4-6) Hydromorphone HCl (Dilaudid) 1 mg IV Q4H PRN PRN Reason: Pain, Severe (7-10) Last Admin: 11/22/19 21:15 Dose: 1 mg Documented by: ESPERANZA Sodium Chloride (Normal Saline 0.9%) 1,000 mls @ 1,000 mls/hr IV BOLUS ONE Stop: 11/22/19 15:51 Last Infusion: 11/22/19 16:43 Dose: 0 mls/hr Documented by: Admin: 11/22/19 15:35 Dose: 1,000 mls/hr Documented by: SCOTTY INSULIN DRIP PREMIX (Myxredlin Drip Premix) 100 unit in 100 mls @ 6 mls/hr IV TITRATE [facility]; Protocol Last Titration: 11/23/19 12:35 Dose: 0 mls/hr, 0 mls/hr Documented by: JESSICA Cosigned by: HANNAHBONNeal Titration: 11/23/19 05:14 Dose: 2.2 mls/hr, 2.2 mls/hr Documented by: JESSICA Cosigned by: ERIK Titration: 11/23/19 01:28 Dose: 3.3 mls/hr, 3.3 mls/hr Documented by: ESPERANZA Cosigned by: CT Titration: 11/23/19 00:28 Dose: 2.1 mls/hr, 2.1 mls/hr Documented by: ESPERANZA Cosigned by: CT Titration: 11/22/19 22:24 Dose: 0.8 mls/hr, 0.8 mls/hr Documented by: MASON Cosigned by: ESPERANZA Admin: 11/22/19 21:17 Dose: 4.1 mls/hr, 4.1 mls/hr Documented by: ESPERANZA Cosigned by: SABRINA Titration: 11/22/19 21:17 Dose: 4.1 mls/hr, 4.1 mls/hr Documented by: ESPERANZA Cosigned by: SABRINA Titration: 11/22/19 20:54 Dose: 0 mls/hr, 0 mls/hr Documented by: SCOTTY Cosigned by: ELMO Admin: 11/22/19 16:28 Dose: 6 mls/hr, 6 mls/hr Documented by: SCOTTY Cosigned by: CANDE Sodium Chloride (Normal Saline 0.9%) 1,000 mls @ 125 mls/hr IV CONT [facility] Stop: 11/22/19 19:50 Last Infusion: 11/22/19 19:47 Dose: 0 mls/hr Documented by: Infusion: 11/22/19 18:44 Dose: 200 mls/hr Documented by: Admin: 11/22/19 16:34 Dose: 125 mls/hr Documented by: SCOTTY Sodium Chloride (Normal Saline 0.9%) 1,000 mls @ 1,000 mls/hr IV BOLUS ONE Stop: 11/22/19 17:36 Last Infusion: 11/22/19 18:17 Dose: 0 mls/hr Documented by: Admin: 11/22/19 16:53 Dose: 1,000 mls/hr Documented by: SCOTTY Sodium Chloride (Normal Saline 0.9%) 1,000 mls @ 200 mls/hr IV CONT [facility] Last Admin: 11/22/19 18:44 Dose: Not Given Documented by: SCOTTY Sodium Chloride (Normal Saline 0.45%) 1,000 mls @ 200 mls/hr IV CONT [facility] Last Infusion: 11/23/19 05:15 Dose: 0 mls/hr Documented by: Infusion: 11/22/19 20:54 Dose: 0 mls/hr Documented by: Admin: 11/22/19 19:54 Dose: 200 mls/hr Documented by: SCOTTY Dextrose/Sodium Chloride (Dextrose 5%-0.45% Ns) 1,000 mls @ 100 mls/hr IV CONT [facility] Last Infusion: 11/23/19 05:14 Dose: 0 mls/hr Documented by: Infusion: 11/22/19 23:16 Dose: 0 mls/hr Documented by: Infusion: 11/22/19 22:24 Dose: 150 mls/hr Documented by: Infusion: 11/22/19 21:39 Dose: 100 mls/hr Documented by: Admin: 11/22/19 21:17 Dose: 61.5 mls/hr Documented by: ESPERANZA Insulin Human Regular 100 unit (/ Sodium Chloride) 100 mls @ 6 mls/hr IV TITRATE [facility]; Protocol Last Admin: 11/22/19 21:43 Dose: Not Given Documented by: MASON Dextrose (Dextrose 5% Water) 1,000 mls @ 100 mls/hr IV CONT [facility] Last Infusion: 11/23/19 12:35 Dose: 0 mls/hr Documented by: Admin: 11/23/19 05:34 Dose: 100 mls/hr Documented by: Infusion: 11/23/19 05:34 Dose: 100 mls/hr Documented by: Infusion: 11/23/19 03:36 Dose: 100 mls/hr Documented by: Admin: 11/22/19 23:25 Dose: 150 mls/hr Documented by: ESPERANZA Insulin Human Regular (Humulin R) 10 unit IV NOW ONE Stop: 11/22/19 16:42 Last Admin: 11/22/19 16:59 Dose: 10 unit Documented by: SCOTTY Cosigned by: SHERWIN Methylprednisolone (Solu-Medrol 125 Mg Vial) 125 mg IV NOW ONE Stop: 11/22/19 17:21 Last Admin: 11/22/19 17:25 Dose: 125 mg Documented by: SHERWIN Non-Formulary Medication (Insulin Degludec) 53 unit SUBCUT DAILY [facility] Ondansetron HCl (Zofran) 4 mg IV NOW ONE Stop: 11/22/19 15:32 Last Admin: 11/22/19 15:35 Dose: 4 mg Documented by: SCOTTY Potassium Chloride (Klor-Con M20) 40 meq PO NOW ONE Stop: 11/23/19 11:02 Last Admin: 11/23/19 13:14 Dose: Not Given Documented by: JESSICA Potassium Chloride (Potassium Chloride) 40 meq PO NOW ONE Stop: 11/23/19 13:15 Last Admin: 11/23/19 14:23 Dose: 40 meq Documented by: JESSICA Reevaluation(s) Reevaluation #1: The patient reports pain improved and feeling a little improved. Time: 16:00 Consultations Consultation #1: Dr. Vargas consulted for admission for DKA. It was Recommended for abd/pelvis CT test with and without contrast for acute abdominal pathology including renal abscess, stone, infection. Also, was recommended for pelvic exam. Time: 16:35 Vital Signs Vital signs: Vital Signs - 8 hr 11/22/19 14:43 11/22/19 14:45 11/22/19 15:30 Temperature 98.5 F Pulse Rate 146 H 145 H 142 H Respiratory Rate 18 38 H 41 H Blood Pressure 155/99 H 155/99 H 154/89 H Pulse Oximetry 98 11/22/19 15:35 11/22/19 16:00 11/22/19 16:30 Temperature Pulse Rate 144 H 138 H 135 H Respiratory Rate 22 Blood Pressure 124/74 121/74 Pulse Oximetry 99 99 100 11/22/19 16:45 11/22/19 17:00 11/22/19 18:53 Temperature Pulse Rate 135 H 137 H 134 H Respiratory Rate 35 H 25 H 16 Blood Pressure 127/79 131/78 Pulse Oximetry 100 100 100 <Mike Emanuel MD - Last Filed: 11/24/19 08:08> Orders Ordered: Acetaminophen (Tylenol) 650 mg VT Q4HR PRN PRN Reason: Fever/Mild Pain (1-3) Bisacodyl (Dulcolax) 10 mg PO DAILY PRN PRN Reason: Constipation Last Admin: 11/23/19 21:12 Dose: 10 mg Documented by: LUIS EDUARDO Dextrose (D50w) 25 gm IV PRN PRN PRN Reason: Hypoglycemia Dextrose (D50w) 25 gm IV PRN PRN PRN Reason: Hypoglycemia Diphenhydramine HCl (Benadryl) 25 mg IV Q6HR PRN PRN Reason: Itching Last Admin: 11/23/19 21:12 Dose: 25 mg Documented by: LUIS EDUARDO Admin: 11/23/19 14:24 Dose: 25 mg Documented by: Admin: 11/23/19 03:36 Dose: 25 mg Documented by: JESSICA Docusate Sodium (Colace) 100 mg PO BID [facility] Last Admin: 11/23/19 21:12 Dose: 100 mg Documented by: LUIS EDUARDO Admin: 11/23/19 09:27 Dose: 100 mg Documented by: Admin: 11/22/19 21:41 Dose: 100 mg Documented by: MASON Heparin Sodium (Porcine) (Heparin) 5,000 unit SUBCUT BID [facility] Last Admin: 11/23/19 21:14 Dose: Not Given Documented by: LUIS EDUARDO Admin: 11/23/19 09:27 Dose: Not Given Documented by: Admin: 11/22/19 21:40 Dose: Not Given Documented by: MASON Hydromorphone HCl (Dilaudid) 1 mg IV Q3H PRN PRN Reason: Pain, Severe (7-10) Last Admin: 11/24/19 06:32 Dose: 1 mg Documented by: Admin: 11/24/19 03:10 Dose: 1 mg Documented by: Admin: 11/24/19 00:12 Dose: 1 mg Documented by: Admin: 11/23/19 21:13 Dose: 1 mg Documented by: LUIS EDUARDO Admin: 11/23/19 18:07 Dose: 1 mg Documented by: LUIS EDUARDO Admin: 11/23/19 14:24 Dose: 1 mg Documented by: Admin: 11/23/19 12:00 Dose: 1 mg Documented by: Admin: 11/23/19 08:50 Dose: 1 mg Documented by: Admin: 11/23/19 07:06 Dose: 1 mg Documented by: Admin: 11/23/19 03:36 Dose: 1 mg Documented by: Admin: 11/22/19 23:51 Dose: 1 mg Documented by: ESPERANZA Hydromorphone HCl (Dilaudid) 0.5 mg IV Q3H PRN PRN Reason: Pain, Moderate (4-6) Insulin Aspart (Novolog Flexpen) 0 unit SUBCUT [facility]; Protocol Last Admin: 11/23/19 21:14 Dose: Not Given Documented by: LUIS EDUARDO Admin: 11/23/19 17:08 Dose: 3 unit Documented by: LUIS EDUARDO Cosigned by: DYLLAN Insulin Aspart (Novolog Flexpen) 7 unit SUBCUT AC [facility] Last Admin: 11/23/19 17:09 Dose: 7 unit Documented by: LUIS EDUARDO Cosigned by: DYLLAN Metoclopramide HCl (Reglan) 10 mg IV Q6HR PRN PRN Reason: Nausea And Vomiting Naloxone HCl (Narcan) 0.2 mg IV Q2MIN PRN PRN Reason: Opiate Reversal Nf - Insulin Degludec (Tresiba) 53 Units 53 unit SUBCUT DAILY [facility] Last Admin: 11/23/19 11:54 Dose: 53 unit Documented by: JESSICA Discontinued Medications Diphenhydramine HCl (Benadryl) 25 mg IV NOW ONE Stop: 11/22/19 17:21 Last Admin: 11/22/19 17:25 Dose: 25 mg Documented by: SHERWIN Hydromorphone HCl (Dilaudid) 1 mg IV NOW ONE Stop: 11/22/19 15:32 Last Admin: 11/22/19 15:35 Dose: 1 mg Documented by: ZGELEYN Hydromorphone HCl (Dilaudid) 1 mg IV NOW ONE Stop: 11/22/19 18:45 Last Admin: 11/22/19 18:48 Dose: 1 mg Documented by: SCOTTY Hydromorphone HCl (Dilaudid) 0.5 mg IV Q4H PRN PRN Reason: Pain, Moderate (4-6) Hydromorphone HCl (Dilaudid) 1 mg IV Q4H PRN PRN Reason: Pain, Severe (7-10) Last Admin: 11/22/19 21:15 Dose: 1 mg Documented by: ESPERANZA Sodium Chloride (Normal Saline 0.9%) 1,000 mls @ 1,000 mls/hr IV BOLUS ONE Stop: 11/22/19 15:51 Last Infusion: 11/22/19 16:43 Dose: 0 mls/hr Documented by: Admin: 11/22/19 15:35 Dose: 1,000 mls/hr Documented by: SCOTTY INSULIN DRIP PREMIX (Myxredlin Drip Premix) 100 unit in 100 mls @ 6 mls/hr IV TITRATE [facility]; Protocol Last Titration: 11/23/19 12:35 Dose: 0 mls/hr, 0 mls/hr Documented by: JESSICA Cosigned by: SPABONNeal Titration: 11/23/19 05:14 Dose: 2.2 mls/hr, 2.2 mls/hr Documented by: JESSICA Cosigned by: CSHOCLARISSE Titration: 11/23/19 01:28 Dose: 3.3 mls/hr, 3.3 mls/hr Documented by: ESPERANZA Cosigned by: CT Titration: 11/23/19 00:28 Dose: 2.1 mls/hr, 2.1 mls/hr Documented by: ESPERANZA Cosigned by: CT Titration: 11/22/19 22:24 Dose: 0.8 mls/hr, 0.8 mls/hr Documented by: MASON Cosigned by: ESPERANZA Admin: 11/22/19 21:17 Dose: 4.1 mls/hr, 4.1 mls/hr Documented by: ESPERANZA Cosigned by: LEONIDASHIREE Titration: 11/22/19 21:17 Dose: 4.1 mls/hr, 4.1 mls/hr Documented by: ESPERANZA Cosigned by: SABRINA Titration: 11/22/19 20:54 Dose: 0 mls/hr, 0 mls/hr Documented by: SCOTTY Cosigned by: ELMO Admin: 11/22/19 16:28 Dose: 6 mls/hr, 6 mls/hr Documented by: SCOTTY Cosigned by: CANDE Sodium Chloride (Normal Saline 0.9%) 1,000 mls @ 125 mls/hr IV CONT [facility] Stop: 11/22/19 19:50 Last Infusion: 11/22/19 19:47 Dose: 0 mls/hr Documented by: Infusion: 11/22/19 18:44 Dose: 200 mls/hr Documented by: Admin: 11/22/19 16:34 Dose: 125 mls/hr Documented by: SCOTTY Sodium Chloride (Normal Saline 0.9%) 1,000 mls @ 1,000 mls/hr IV BOLUS ONE Stop: 11/22/19 17:36 Last Infusion: 11/22/19 18:17 Dose: 0 mls/hr Documented by: Admin: 11/22/19 16:53 Dose: 1,000 mls/hr Documented by: SCOTTY Sodium Chloride (Normal Saline 0.9%) 1,000 mls @ 200 mls/hr IV CONT [facility] Last Admin: 11/22/19 18:44 Dose: Not Given Documented by: SCOTTY Sodium Chloride (Normal Saline 0.45%) 1,000 mls @ 200 mls/hr IV CONT [facility] Last Infusion: 11/23/19 05:15 Dose: 0 mls/hr Documented by: Infusion: 11/22/19 20:54 Dose: 0 mls/hr Documented by: Admin: 11/22/19 19:54 Dose: 200 mls/hr Documented by: SCOTTY Dextrose/Sodium Chloride (Dextrose 5%-0.45% Ns) 1,000 mls @ 100 mls/hr IV CONT [facility] Last Infusion: 11/23/19 05:14 Dose: 0 mls/hr Documented by: Infusion: 11/22/19 23:16 Dose: 0 mls/hr Documented by: Infusion: 11/22/19 22:24 Dose: 150 mls/hr Documented by: Infusion: 11/22/19 21:39 Dose: 100 mls/hr Documented by: Admin: 11/22/19 21:17 Dose: 61.5 mls/hr Documented by: ESPERANZA Insulin Human Regular 100 unit (/ Sodium Chloride) 100 mls @ 6 mls/hr IV TITRATE [facility]; Protocol Last Admin: 11/22/19 21:43 Dose: Not Given Documented by: MASON Dextrose (Dextrose 5% Water) 1,000 mls @ 100 mls/hr IV CONT [facility] Last Infusion: 11/23/19 12:35 Dose: 0 mls/hr Documented by: Admin: 11/23/19 05:34 Dose: 100 mls/hr Documented by: Infusion: 11/23/19 05:34 Dose: 100 mls/hr Documented by: Infusion: 11/23/19 03:36 Dose: 100 mls/hr Documented by: Admin: 11/22/19 23:25 Dose: 150 mls/hr Documented by: ESPERANZA Insulin Human Regular (Humulin R) 10 unit IV NOW ONE Stop: 11/22/19 16:42 Last Admin: 11/22/19 16:59 Dose: 10 unit Documented by: SCOTTY Cosigned by: SHERWIN Methylprednisolone (Solu-Medrol 125 Mg Vial) 125 mg IV NOW ONE Stop: 11/22/19 17:21 Last Admin: 11/22/19 17:25 Dose: 125 mg Documented by: SEHRWIN Non-Formulary Medication (Insulin Degludec) 53 unit SUBCUT DAILY [facility] Ondansetron HCl (Zofran) 4 mg IV NOW ONE Stop: 11/22/19 15:32 Last Admin: 11/22/19 15:35 Dose: 4 mg Documented by: SCOTTY Potassium Chloride (Klor-Con M20) 40 meq PO NOW ONE Stop: 11/23/19 11:02 Last Admin: 11/23/19 13:14 Dose: Not Given Documented by: JESSICA Potassium Chloride (Potassium Chloride) 40 meq PO NOW ONE Stop: 11/23/19 13:15 Last Admin: 11/23/19 14:23 Dose: 40 meq Documented by: TBLANTO Vital Signs Vital signs: Vital Signs - 8 hr 11/22/19 14:43 11/22/19 14:45 11/22/19 15:30 Temperature 98.5 F Pulse Rate 146 H 145 H 142 H Respiratory Rate 18 38 H 41 H Blood Pressure 155/99 H 155/99 H 154/89 H Pulse Oximetry 98 11/22/19 15:35 11/22/19 16:00 11/22/19 16:30 Temperature Pulse Rate 144 H 138 H 135 H Respiratory Rate 22 Blood Pressure 124/74 121/74 Pulse Oximetry 99 99 100 11/22/19 16:45 11/22/19 17:00 11/22/19 18:53 Temperature Pulse Rate 135 H 137 H 134 H Respiratory Rate 35 H 25 H 16 Blood Pressure 127/79 131/78 Pulse Oximetry 100 100 100 Medical Decision Making <SHARYN Walters - Last Filed: 11/22/19 20:09> Differential Diagnosis Differential Diagnosis: DKA, pneumonia, UTI, acute abdominal infection, cellulitis Medical Records Medical records reviewed: Yes I reviewed the patient's medical records. Lab Data Lab results reviewed: Yes I reviewed the patient's lab results. Result diagrams: 11/22/19 15:24 11/24/19 06:30 Labs: Lab Results 11/22/19 11/22/19 11/22/19 Range/Units 15:07 15:24 15:24 WBC 10.0 (4.5-11.0) X10^3/uL RBC 4.13 (4.0-5.2) X10^6/uL Hgb 13.7 (12.0-16.0) g/dL Hct 43.0 (36-46) % MCV 104.2 H (80-100) fL MCH 33.1 (26-34) PG MCHC 31.8 (30-36) % RDW 13.6 (11.6-14.8) % Plt Count 399 (150-400) X10^3/uL Neut % (Auto) 82.2 H (50-75) % Lymph % (Auto) 13.8 L (25-40) % [place] % (Auto) 2.9 L (3-14) % Eos % (Auto) 0.1 L (2-4) % Baso % (Auto) 1.0 (0-2) % Neut # (Auto) 8200 H (6781-5533) /uL Lymph # (Auto) 1400 (1313-7195) /uL [place] # (Auto) 300 (0-900) /uL Eos # (Auto) 0 (0-450) /uL Baso # (Auto) 100 (0-100) /uL VBG pH (7.33-7.43) VBG pCO2 (45-50) mmHg VBG pO2 (35-45) mmHg VBG HCO3 (23-28) mmol/L VBG Total CO2 (24-29) mmol/L VBG O2 Saturation (70-75) % VBG Base Excess (0-4) mmol/L Sodium (137-145) mmol/L Potassium (3.4-5.1) mmol/L Chloride (98-107) mmol/L Carbon Dioxide (22-32) mmol/L BUN (7-17) mg/dL Creatinine (0.52-1.04) mg/dL Estimated GFR (>60) mL/min BUN/Creatinine Ratio (6-22) Glucose (70-100) mg/dL Lactate (0.7-2.1) mmol/L Calcium (8.4-10.2) mg/dL Phosphorus (2.5-4.5) mg/dL Magnesium (1.6-2.3) mg/dL Total Bilirubin (0.2-1.3) mg/dL AST (14-36) IU/L ALT (<35) IU/L Alkaline Phosphatase (38-126) U/L C-Reactive Protein (<1.0) mg/dL Total Protein (6.3-8.2) g/dL Albumin (3.5-5.0) g/dL Globulin (1.7-4.1) g/dL Albumin/Globulin Ratio (1.0-2.8) Procalcitonin 0.09 (<0.5) ng/mL Serum , Qual (Negative) Urine RBC (0-5/HPF) Urine WBC (0-5/HPF) Ur Squamous Epith Cells (0-5/HPF) Urine Bacteria (None) Ur Culture Indicated? Ketones (<0.27) mmol/L COVID-19 PCR Negative (Negative) 11/22/19 11/22/19 11/22/19 Range/Units 15:24 15:24 15:24 WBC (4.5-11.0) X10^3/uL RBC (4.0-5.2) X10^6/uL Hgb (12.0-16.0) g/dL Hct (36-46) % MCV (80-100) fL MCH (26-34) PG MCHC (30-36) % RDW (11.6-14.8) % Plt Count (150-400) X10^3/uL Neut % (Auto) (50-75) % Lymph % (Auto) (25-40) % [place] % (Auto) (3-14) % Eos % (Auto) (2-4) % Baso % (Auto) (0-2) % Neut # (Auto) (8811-7650) /uL Lymph # (Auto) (6186-4915) /uL [place] # (Auto) (0-900) /uL Eos # (Auto) (0-450) /uL Baso # (Auto) (0-100) /uL VBG pH (7.33-7.43) VBG pCO2 (45-50) mmHg VBG pO2 (35-45) mmHg VBG HCO3 (23-28) mmol/L VBG Total CO2 (24-29) mmol/L VBG O2 Saturation (70-75) % VBG Base Excess (0-4) mmol/L Sodium 145 (137-145) mmol/L Potassium 4.8 (3.4-5.1) mmol/L Chloride 114 H (98-107) mmol/L Carbon Dioxide < 5 L* (22-32) mmol/L BUN 14 (7-17) mg/dL Creatinine 0.88 (0.52-1.04) mg/dL Estimated GFR > 60.0 (>60) mL/min BUN/Creatinine Ratio 15.9 (6-22) Glucose 602 H* D (70-100) mg/dL Lactate 1.3 (0.7-2.1) mmol/L Calcium 9.7 (8.4-10.2) mg/dL Phosphorus 5.2 H D (2.5-4.5) mg/dL Magnesium 2.2 (1.6-2.3) mg/dL Total Bilirubin 0.5 (0.2-1.3) mg/dL AST 20 (14-36) IU/L ALT 19 (<35) IU/L Alkaline Phosphatase 176 H (38-126) U/L C-Reactive Protein (<1.0) mg/dL Total Protein 7.9 (6.3-8.2) g/dL Albumin 4.7 (3.5-5.0) g/dL Globulin 3.2 (1.7-4.1) g/dL Albumin/Globulin Ratio 1.5 (1.0-2.8) Procalcitonin (<0.5) ng/mL Serum , Qual (Negative) Urine RBC (0-5/HPF) Urine WBC (0-5/HPF) Ur Squamous Epith Cells (0-5/HPF) Urine Bacteria (None) Ur Culture Indicated? Ketones 18.16 H (<0.27) mmol/L COVID-19 PCR (Negative) 11/22/19 11/22/19 11/22/19 Range/Units 15:24 15:24 15:24 WBC (4.5-11.0) X10^3/uL RBC (4.0-5.2) X10^6/uL Hgb (12.0-16.0) g/dL Hct (36-46) % MCV (80-100) fL MCH (26-34) PG MCHC (30-36) % RDW (11.6-14.8) % Plt Count (150-400) X10^3/uL Neut % (Auto) (50-75) % Lymph % (Auto) (25-40) % [place] % (Auto) (3-14) % Eos % (Auto) (2-4) % Baso % (Auto) (0-2) % Neut # (Auto) (7745-5282) /uL Lymph # (Auto) (4287-9992) /uL [place] # (Auto) (0-900) /uL Eos # (Auto) (0-450) /uL Baso # (Auto) (0-100) /uL VBG pH (7.33-7.43) VBG pCO2 (45-50) mmHg VBG pO2 (35-45) mmHg VBG HCO3 (23-28) mmol/L VBG Total CO2 (24-29) mmol/L VBG O2 Saturation (70-75) % VBG Base Excess (0-4) mmol/L Sodium 145 (137-145) mmol/L Potassium 5.2 H (3.4-5.1) mmol/L Chloride 114 H (98-107) mmol/L Carbon Dioxide < 5 L* (22-32) mmol/L BUN 15 (7-17) mg/dL Creatinine 0.86 (0.52-1.04) mg/dL Estimated GFR > 60.0 (>60) mL/min BUN/Creatinine Ratio 17.4 (6-22) Glucose 621 H* (70-100) mg/dL Lactate (0.7-2.1) mmol/L Calcium 10.0 (8.4-10.2) mg/dL Phosphorus 5.7 H (2.5-4.5) mg/dL Magnesium 2.3 (1.6-2.3) mg/dL Total Bilirubin (0.2-1.3) mg/dL AST (14-36) IU/L ALT (<35) IU/L Alkaline Phosphatase (38-126) U/L C-Reactive Protein < 0.5 (<1.0) mg/dL Total Protein (6.3-8.2) g/dL Albumin (3.5-5.0) g/dL Globulin (1.7-4.1) g/dL Albumin/Globulin Ratio (1.0-2.8) Procalcitonin (<0.5) ng/mL Serum , Qual Negative (Negative) Urine RBC (0-5/HPF) Urine WBC (0-5/HPF) Ur Squamous Epith Cells (0-5/HPF) Urine Bacteria (None) Ur Culture Indicated? Ketones (<0.27) mmol/L COVID-19 PCR (Negative) 11/22/19 11/22/19 Range/Units 15:25 19:20 WBC (4.5-11.0) X10^3/uL RBC (4.0-5.2) X10^6/uL Hgb (12.0-16.0) g/dL Hct (36-46) % MCV (80-100) fL MCH (26-34) PG MCHC (30-36) % RDW (11.6-14.8) % Plt Count (150-400) X10^3/uL Neut % (Auto) (50-75) % Lymph % (Auto) (25-40) % [place] % (Auto) (3-14) % Eos % (Auto) (2-4) % Baso % (Auto) (0-2) % Neut # (Auto) (9259-7806) /uL Lymph # (Auto) (4018-1670) /uL [place] # (Auto) (0-900) /uL Eos # (Auto) (0-450) /uL Baso # (Auto) (0-100) /uL VBG pH 7.01 L* (7.33-7.43) VBG pCO2 7.4 L (45-50) mmHg VBG pO2 103 H (35-45) mmHg VBG HCO3 2 L (23-28) mmol/L VBG Total CO2 < 5 L (24-29) mmol/L VBG O2 Saturation 94 H (70-75) % VBG Base Excess -29.0 L (0-4) mmol/L Sodium (137-145) mmol/L Potassium (3.4-5.1) mmol/L Chloride (98-107) mmol/L Carbon Dioxide (22-32) mmol/L BUN (7-17) mg/dL Creatinine (0.52-1.04) mg/dL Estimated GFR (>60) mL/min BUN/Creatinine Ratio (6-22) Glucose (70-100) mg/dL Lactate (0.7-2.1) mmol/L Calcium (8.4-10.2) mg/dL Phosphorus (2.5-4.5) mg/dL Magnesium (1.6-2.3) mg/dL Total Bilirubin (0.2-1.3) mg/dL AST (14-36) IU/L ALT (<35) IU/L Alkaline Phosphatase (38-126) U/L C-Reactive Protein (<1.0) mg/dL Total Protein (6.3-8.2) g/dL Albumin (3.5-5.0) g/dL Globulin (1.7-4.1) g/dL Albumin/Globulin Ratio (1.0-2.8) Procalcitonin (<0.5) ng/mL Serum , Qual (Negative) Urine RBC 0-1/hpf (0-5/HPF) Urine WBC 1-5/hpf (0-5/HPF) Ur Squamous Epith Cells 1-5 /hpf (0-5/HPF) Urine Bacteria Few (2-10) H (None) Ur Culture Indicated? Culture not indicate Ketones (<0.27) mmol/L COVID-19 PCR (Negative) Point of Care Testing Test Results Negative Glucose POC 276 Urine Dip Bedside Urine Glucose 1000 mg/dl Bedside Urine Bilirubin - Negative Bedside Urine Ketone +++ 80 Urine Specific [place] 1.015 Bedside Urine Occult Blood +/- Bedside Urine pH 6.0 Bedside Urine Protein + 30 Bedside Urine Urobilinogen - Negative Bedside Urine Nitrite - Negative Bedside Urine Leukocytes - Negative Esterase Point of care testing: Point of Care Testing Test Results Negative Glucose POC 276 Urine Dip Bedside Urine Glucose 1000 mg/dl Bedside Urine Bilirubin - Negative Bedside Urine Ketone +++ 80 Urine Specific [place] 1.015 Bedside Urine Occult Blood +/- Bedside Urine pH 6.0 Bedside Urine Protein + 30 Bedside Urine Urobilinogen - Negative Bedside Urine Nitrite - Negative Bedside Urine Leukocytes - Negative Esterase Imaging Data CT scan - abdomen/pelvis: Radiologist's Impression: [place] [address] CT Scan Report Signed Patient: Sarabjit Jimenes [facility]#: [id number] : 1990Acct:[id number] Age/Sex: 29 / FDate of Service: 11/22/19 Loc: ED Accession Number: [id number] Procedure: CT abdomen pelvis wo/w con Ordering Provider: Tang Dominguez PROCEDURE: CT ABDOMEN PELVIS WO/W CON INDICATIONS: DKA, hx kidney abscess TECHNIQUE: After the administration of oral contrast, 5 mm thick sections acquired from the diaphragms to the iliac crests. After the administration of intravenous contrast, 5 mm thick sections acquired from the diaphragms to the symphysis. 5 mm thick coronal and sagittal reformats were acquired. For radiation dose reduction, the following was used: automated exposure control, adjustment of mA and/or kV according to patient size. COMPARISON: None. FINDINGS: Image quality: Excellent. ABDOMEN: Lung bases: Lung bases are clear. Heart size is normal. Solid organs: Liver is normal in size and enhancement. Gallbladder appears normal . Biliary system is non-dilated. Pancreas enhances normally. Spleen is normal in size and enhancement. No adrenal nodules. Both kidneys are normal in size. There is mild hydronephrosis bilaterally but no nephrolithiasis. Bowel and peritoneum: Stomach, small and large bowel loops are normal in caliber and wall thickness. No free fluid or air. Note is made of asymmetric right greater than left colonic obstipation. Nodes and vessels: No retroperitoneal or mesenteric adenopathy by size criteria. Aorta and inferior vena are normal in caliber. Miscellaneous: No ventral hernias. PELVIS: Noted. Genitourinary: Bladder wall thickness is normal. The bladder, however, is prominently distended. It measures up to 10.9 cm AP, 13.7 cm transverse and 19.7 cm craniocaudad. Miscellaneous: No inguinal hernias or adenopathy. Bones: No suspicious bony lesions. No vertebral body compression fractures. IMPRESSION: No evidence of renal abscess, or renal calculus. Mild bilateral hydronephrosis is likely due to back pressure related to prominent bladder distention which measures up to 10.9 x 13.7 x 19.7 cm in maximal AP, transverse and craniocaudad dimensions. Asymmetric right greater than left colonic obstipation is incidentally Dictated by: Nayan Koroma M.D. on 11/22/2019 at 18:17 Approved by: Nayan Koroma M.D. on 11/22/2019 at 18:22 Chest x-ray: Radiologist's Impression: [place] [address] XRay Report Signed Patient: Sarabjit Jimenes MMR#: [id number] : 1990Acct:[id number] Age/Sex: 29 / FDate of Service: 11/22/19 Loc: ED Accession Number: [id number] Procedure: XR chest 1V Ordering Provider: Tang Dominguez PROCEDURE: XR CHEST 1V INDICATIONS: elevated glucose, hx DKA TECHNIQUE: One view of the chest was acquired. COMPARISON: [facility], CT, CT CHEST ABD PEL W CON, 02/28/2019, 15:03. [facility], CR, XR CHEST 1V, 02/27/2019, 11:31. [facility], CR, XR CHEST 1V, 03/08/2019, 13:40. [facility], CR, XR CHEST 2V, 09/29/2019, 15:43. [facility], CR, XR CHEST 1V, 11/20/2019, 16:18. FINDINGS: Surgical changes and devices: None. Lungs and pleura: Lungs are clear. No pleural effusions or pneumothorax. Mediastinum: Mediastinal contours appear normal. Heart size is normal. Bones and chest wall: No suspicious bony lesions. Overlying soft tissues appear unremarkable. IMPRESSION: Portable chest study within normal limits. Stable from prior. Dictated by: Remi Polanco M.D. on 11/22/2019 at 14:58 Approved by: Remi Polanco M.D. on 11/22/2019 at 14:58 ECG Data Attestation: I personally reviewed and interpreted this ECG as follows: Prior ECG tracings: available for review Interpretation: Sinus tachycardia rate at 146. NOrmal axis. VT interval 114, QRS duration 66, QT/QTc 288/[address] changes MDM Narrative Medical decision making narrative: This is a 29-year-old female who has history of type 1 diabetes with frequent admission to hospital with DKA presents to ED with her fiance with not feeling well, generalized body aches, and feels like having another DKA. Patient reports she has been compliant with her medications except this morning dose of long-acting insulin at 11:00 a.m. The patient was discharged to home on 11/20/19 after treated for DKA and insulin drips. Patient reports no recent URI symptoms, abdominal pain, UTI symptoms, vomiting, other skin lesions or infection except scalp lesion that has been cared by wound care clinic. EKG shows sinus tachycardia at [address] changes. Chest x-ray does not show acute findings as pneumonia. Normal white count with mildly elevated neutrophil of 82.2 %. Within normal H&H. CMP shows normal potassium level of 4.8. Normal kidney function test with creatinine of 0.88 with estimated GFR of >60 and BUN of 14. Serum glucose of 602 initially. Normal lactate of 1.3 with procalcitonin of 0.09. Normal magnesium and slightly elevated phosphorus of 5.2. Slightly elevated alkaline phosphate of 176 and this has been trend. CO2 <5 and the patient has had tachypnea when assessed upon arrival likely due to DKA. VBG was uncompensated metabolic acidosis and showed pH of 7.1, HCO3 of 2 with Base excess of -29. CO2 of 7.4 and O2 of 103. Patient received 2 liter NS bolus and the 3rd bag has been infusing at 200 mL/hour. Patient received 10 units of IV regular insulin bolus and has been on drips. Last FSBG was 312 mg/dL. She had received 2 doses of 1 mg Dilaudid for generalized body aches which had improved her symptoms. Scalp exam around the infection does not show severe redness, swelling, warmth to touch. Pelvic exam without cervical motion tenderness. Patient was not able to tolerate speculum exam. There was small amount of light yellow vaginal discharge per exam. There was no lesions in perineum area. Vaginal swab was done and sent out for culture. Urine test does not show leuks or nitrites for infection. However given patient had fungal urine infection, level was called to add urine culture specially for fungal etiology. Patient was able to void after abdomen/pelvis CT of a large amount. Post void bladder scanner shows 3 mL and no indication of urinary retention. Patient has been having difficult time managing her blood sugar with frequent DKA recently. According to the manager of case, patient had met with data communications engineer for possible insulin pump. She does not have PCP currently since previous primary care physician is not accepting patients medical insurance at this time. Patient is in need of PCP. Patient is accepted by [facility] for continuation of care for DKA and management. <Mike Emanuel MD - Last Filed: 11/24/19 08:08> Lab Data Labs: Lab Results 11/22/19 11/22/19 11/22/19 Range/Units 15:07 15:24 15:24 WBC 10.0 (4.5-11.0) X10^3/uL RBC 4.13 (4.0-5.2) X10^6/uL Hgb 13.7 (12.0-16.0) g/dL Hct 43.0 (36-46) % MCV 104.2 H (80-100) fL MCH 33.1 (26-34) PG MCHC 31.8 (30-36) % RDW 13.6 (11.6-14.8) % Plt Count 399 (150-400) X10^3/uL Neut % (Auto) 82.2 H (50-75) % Lymph % (Auto) 13.8 L (25-40) % [place] % (Auto) 2.9 L (3-14) % Eos % (Auto) 0.1 L (2-4) % Baso % (Auto) 1.0 (0-2) % Neut # (Auto) 8200 H (3218-5158) /uL Lymph # (Auto) 1400 (6782-6144) /uL [place] # (Auto) 300 (0-900) /uL Eos # (Auto) 0 (0-450) /uL Baso # (Auto) 100 (0-100) /uL VBG pH (7.33-7.43) VBG pCO2 (45-50) mmHg VBG pO2 (35-45) mmHg VBG HCO3 (23-28) mmol/L VBG Total CO2 (24-29) mmol/L VBG O2 Saturation (70-75) % VBG Base Excess (0-4) mmol/L Sodium (137-145) mmol/L Potassium (3.4-5.1) mmol/L Chloride (98-107) mmol/L Carbon Dioxide (22-32) mmol/L BUN (7-17) mg/dL Creatinine (0.52-1.04) mg/dL Estimated GFR (>60) mL/min BUN/Creatinine Ratio (6-22) Glucose (70-100) mg/dL Lactate (0.7-2.1) mmol/L Calcium (8.4-10.2) mg/dL Phosphorus (2.5-4.5) mg/dL Magnesium (1.6-2.3) mg/dL Total Bilirubin (0.2-1.3) mg/dL AST (14-36) IU/L ALT (<35) IU/L Alkaline Phosphatase (38-126) U/L C-Reactive Protein (<1.0) mg/dL Total Protein (6.3-8.2) g/dL Albumin (3.5-5.0) g/dL Globulin (1.7-4.1) g/dL Albumin/Globulin Ratio (1.0-2.8) Procalcitonin 0.09 (<0.5) ng/mL Serum , Qual (Negative) Urine RBC (0-5/HPF) Urine WBC (0-5/HPF) Ur Squamous Epith Cells (0-5/HPF) Urine Bacteria (None) Ur Culture Indicated? Ketones (<0.27) mmol/L COVID-19 PCR Negative (Negative) 11/22/19 11/22/19 11/22/19 Range/Units 15:24 15:24 15:24 WBC (4.5-11.0) X10^3/uL RBC (4.0-5.2) X10^6/uL Hgb (12.0-16.0) g/dL Hct (36-46) % MCV (80-100) fL MCH (26-34) PG MCHC (30-36) % RDW (11.6-14.8) % Plt Count (150-400) X10^3/uL Neut % (Auto) (50-75) % Lymph % (Auto) (25-40) % [place] % (Auto) (3-14) % Eos % (Auto) (2-4) % Baso % (Auto) (0-2) % Neut # (Auto) (0926-0349) /uL Lymph # (Auto) (5053-1272) /uL [place] # (Auto) (0-900) /uL Eos # (Auto) (0-450) /uL Baso # (Auto) (0-100) /uL VBG pH (7.33-7.43) VBG pCO2 (45-50) mmHg VBG pO2 (35-45) mmHg VBG HCO3 (23-28) mmol/L VBG Total CO2 (24-29) mmol/L VBG O2 Saturation (70-75) % VBG Base Excess (0-4) mmol/L Sodium 145 (137-145) mmol/L Potassium 4.8 (3.4-5.1) mmol/L Chloride 114 H (98-107) mmol/L Carbon Dioxide < 5 L* (22-32) mmol/L BUN 14 (7-17) mg/dL Creatinine 0.88 (0.52-1.04) mg/dL Estimated GFR > 60.0 (>60) mL/min BUN/Creatinine Ratio 15.9 (6-22) Glucose 602 H* D (70-100) mg/dL Lactate 1.3 (0.7-2.1) mmol/L Calcium 9.7 (8.4-10.2) mg/dL Phosphorus 5.2 H D (2.5-4.5) mg/dL Magnesium 2.2 (1.6-2.3) mg/dL Total Bilirubin 0.5 (0.2-1.3) mg/dL AST 20 (14-36) IU/L ALT 19 (<35) IU/L Alkaline Phosphatase 176 H (38-126) U/L C-Reactive Protein (<1.0) mg/dL Total Protein 7.9 (6.3-8.2) g/dL Albumin 4.7 (3.5-5.0) g/dL Globulin 3.2 (1.7-4.1) g/dL Albumin/Globulin Ratio 1.5 (1.0-2.8) Procalcitonin (<0.5) ng/mL Serum , Qual (Negative) Urine RBC (0-5/HPF) Urine WBC (0-5/HPF) Ur Squamous Epith Cells (0-5/HPF) Urine Bacteria (None) Ur Culture Indicated? Ketones 18.16 H (<0.27) mmol/L COVID-19 PCR (Negative) 11/22/19 11/22/19 11/22/19 Range/Units 15:24 15:24 15:24 WBC (4.5-11.0) X10^3/uL RBC (4.0-5.2) X10^6/uL Hgb (12.0-16.0) g/dL Hct (36-46) % MCV (80-100) fL MCH (26-34) PG MCHC (30-36) % RDW (11.6-14.8) % Plt Count (150-400) X10^3/uL Neut % (Auto) (50-75) % Lymph % (Auto) (25-40) % [place] % (Auto) (3-14) % Eos % (Auto) (2-4) % Baso % (Auto) (0-2) % Neut # (Auto) (8488-0016) /uL Lymph # (Auto) (4503-7984) /uL [place] # (Auto) (0-900) /uL Eos # (Auto) (0-450) /uL Baso # (Auto) (0-100) /uL VBG pH (7.33-7.43) VBG pCO2 (45-50) mmHg VBG pO2 (35-45) mmHg VBG HCO3 (23-28) mmol/L VBG Total CO2 (24-29) mmol/L VBG O2 Saturation (70-75) % VBG Base Excess (0-4) mmol/L Sodium 145 (137-145) mmol/L Potassium 5.2 H (3.4-5.1) mmol/L Chloride 114 H (98-107) mmol/L Carbon Dioxide < 5 L* (22-32) mmol/L BUN 15 (7-17) mg/dL Creatinine 0.86 (0.52-1.04) mg/dL Estimated GFR > 60.0 (>60) mL/min BUN/Creatinine Ratio 17.4 (6-22) Glucose 621 H* (70-100) mg/dL Lactate (0.7-2.1) mmol/L Calcium 10.0 (8.4-10.2) mg/dL Phosphorus 5.7 H (2.5-4.5) mg/dL Magnesium 2.3 (1.6-2.3) mg/dL Total Bilirubin (0.2-1.3) mg/dL AST (14-36) IU/L ALT (<35) IU/L Alkaline Phosphatase (38-126) U/L C-Reactive Protein < 0.5 (<1.0) mg/dL Total Protein (6.3-8.2) g/dL Albumin (3.5-5.0) g/dL Globulin (1.7-4.1) g/dL Albumin/Globulin Ratio (1.0-2.8) Procalcitonin (<0.5) ng/mL Serum , Qual Negative (Negative) Urine RBC (0-5/HPF) Urine WBC (0-5/HPF) Ur Squamous Epith Cells (0-5/HPF) Urine Bacteria (None) Ur Culture Indicated? Ketones (<0.27) mmol/L COVID-19 PCR (Negative) 11/22/19 11/22/19 Range/Units 15:25 19:20 WBC (4.5-11.0) X10^3/uL RBC (4.0-5.2) X10^6/uL Hgb (12.0-16.0) g/dL Hct (36-46) % MCV (80-100) fL MCH (26-34) PG MCHC (30-36) % RDW (11.6-14.8) % Plt Count (150-400) X10^3/uL Neut % (Auto) (50-75) % Lymph % (Auto) (25-40) % [place] % (Auto) (3-14) % Eos % (Auto) (2-4) % Baso % (Auto) (0-2) % Neut # (Auto) (2763-5783) /uL Lymph # (Auto) (5899-2163) /uL [place] # (Auto) (0-900) /uL Eos # (Auto) (0-450) /uL Baso # (Auto) (0-100) /uL VBG pH 7.01 L* (7.33-7.43) VBG pCO2 7.4 L (45-50) mmHg VBG pO2 103 H (35-45) mmHg VBG HCO3 2 L (23-28) mmol/L VBG Total CO2 < 5 L (24-29) mmol/L VBG O2 Saturation 94 H (70-75) % VBG Base Excess -29.0 L (0-4) mmol/L Sodium (137-145) mmol/L Potassium (3.4-5.1) mmol/L Chloride (98-107) mmol/L Carbon Dioxide (22-32) mmol/L BUN (7-17) mg/dL Creatinine (0.52-1.04) mg/dL Estimated GFR (>60) mL/min BUN/Creatinine Ratio (6-22) Glucose (70-100) mg/dL Lactate (0.7-2.1) mmol/L Calcium (8.4-10.2) mg/dL Phosphorus (2.5-4.5) mg/dL Magnesium (1.6-2.3) mg/dL Total Bilirubin (0.2-1.3) mg/dL AST (14-36) IU/L ALT (<35) IU/L Alkaline Phosphatase (38-126) U/L C-Reactive Protein (<1.0) mg/dL Total Protein (6.3-8.2) g/dL Albumin (3.5-5.0) g/dL Globulin (1.7-4.1) g/dL Albumin/Globulin Ratio (1.0-2.8) Procalcitonin (<0.5) ng/mL Serum , Qual (Negative) Urine RBC 0-1/hpf (0-5/HPF) Urine WBC 1-5/hpf (0-5/HPF) Ur Squamous Epith Cells 1-5 /hpf (0-5/HPF) Urine Bacteria Few (2-10) H (None) Ur Culture Indicated? Culture not indicate Ketones (<0.27) mmol/L COVID-19 PCR (Negative) Point of Care Testing Test Results Negative Glucose POC 276 Urine Dip Bedside Urine Glucose 1000 mg/dl Bedside Urine Bilirubin - Negative Bedside Urine Ketone +++ 80 Urine Specific [place] 1.015 Bedside Urine Occult Blood +/- Bedside Urine pH 6.0 Bedside Urine Protein + 30 Bedside Urine Urobilinogen - Negative Bedside Urine Nitrite - Negative Bedside Urine Leukocytes - Negative Esterase Point of care testing: Point of Care Testing Test Results Negative Glucose POC 276 Urine Dip Bedside Urine Glucose 1000 mg/dl Bedside Urine Bilirubin - Negative Bedside Urine Ketone +++ 80 Urine Specific [place] 1.015 Bedside Urine Occult Blood +/- Bedside Urine pH 6.0 Bedside Urine Protein + 30 Bedside Urine Urobilinogen - Negative Bedside Urine Nitrite - Negative Bedside Urine Leukocytes - Negative Esterase Discharge Plan Departure Patient Disposition: Admitted As Inpatient Clinical Impression: DKA (diabetic ketoacidoses) Qualifiers: Diabetes mellitus type: type 1 Diabetes mellitus complication detail: without coma Qualified Code(s): E10.10 - Type 1 diabetes mellitus with ketoacidosis without coma Discharge Date/Time: 11/22/19 21:00 Admit Date/Time: 11/22/19 20:00 Admit Provider: Julio Cesar Spicer
[2019-11-22 15:32] LABS: Add Manual Diff / Slide Review NO; Basophils Absolute Auto 100 /uL (0-100); Eosinophils Absolute Auto 0 /uL (0-450); Eosinophils Percent Auto 0.1 % (2-4); Hemoglobin 13.7 g/dL (12.0-16.0); Lymphocytes Absolute Auto 1400 /uL (1100-4500); Lymphocytes Percent Auto 13.8 % (25-40); Mean Corpuscular HGB Conc 31.8 % (30-36); Mean Corpuscular Hemoglobin 33.1 PG (26-34); Mean Corpuscular Volume 104.2 fL (80-100); Monocytes Absolute Auto 300 /uL (0-900); Monocytes Percent Auto 2.9 % (3-14); Neutrophils Absolute Auto 8200 /uL (1500-7000); Neutrophils Percent Auto 82.2 % (50-75); Platelet Count 399 X10^3/uL (150-400); Red Blood Cell Count 4.13 X10^6/uL (4.0-5.2); Red Cell Distribution Width 13.6 % (11.6-14.8)
[2019-11-22] MEDS: HYDROMORPHONE 1 MG INJ IV ×4 (15:35→23:51)
[2019-11-22] MEDS: SODIUM CHLORIDE 0.9% 1,000 ML 1000 ML IV ×2 (15:35→16:53)
[2019-11-22] MEDS: ONDANSETRON 4 MG/2 ML INJ IV (15:35)
[2019-11-22 15:40] LABS: HEMOLYSIS < 15 (0-50)
[2019-11-22 15:44] LABS: Lactate (Lactic Acid) 1.3 mmol/L (0.7-2.1)
[2019-11-22 15:45] LABS: Alanine Aminotransferase 19 IU/L (<35); Albumin 4.7 g/dL (3.5-5.0); Albumin Globulin Ratio 1.5 (1.0-2.8); Alkaline Phosphatase 176 U/L (38-126); Aspartate Aminotransferase 20 IU/L (14-36); BUN Creatinine Ratio 15.9 (6-22); Bilirubin Total 0.5 mg/dL (0.2-1.3); Blood Urea Nitrogen 14 mg/dL (7-17); Calcium 9.7 mg/dL (8.4-10.2); Chloride 114 mmol/L (98-107); Estimated Glomerular Filt Rate > 60.0 mL/min (>60); Globulin 3.2 g/dL (1.7-4.1); Potassium 4.8 mmol/L (3.4-5.1); Sodium 145 mmol/L (137-145); Total Protein 7.9 g/dL (6.3-8.2)
[2019-11-22 15:46] LABS: Magnesium 2.2 mg/dL (1.6-2.3); Phosphorous 5.2 mg/dL (2.5-4.5)
[2019-11-22 16:06] LABS: Procalcitonin 0.09 ng/mL (<0.5)
[2019-11-22 16:06] LABS: HCO3 VBG 2 mmol/L (23-28); PCO2 VBG 7.4 mmHg (45-50); PO2 VBG 103 mmHg (35-45); Total CO2 VBG < 5 mmol/L (24-29); pH VBG 7.01 (7.33-7.43)
[2019-11-22 16:07] LABS: Oxygen Saturation VBG 94 % (70-75)
[2019-11-22 16:11] LABS: Carbon Dioxide < 5 mmol/L (22-32); Glucose 602 mg/dL (70-100)
[2019-11-22] MEDS: INSULIN DRIP PREMIX 100 UNIT/100 ML PLAST..BAG 6 UNIT IV (16:28)
[2019-11-22] MEDS: SODIUM CHLORIDE 0.9% 1,000 ML 125 ML IV (16:34)
--- NOTE | 2019-11-22 16:38 | DI.CT.S_ITS ---
PROCEDURE: CT ABDOMEN PELVIS WO/W CON INDICATIONS: DKA, hx kidney abscess TECHNIQUE: After the administration of oral contrast, 5 mm thick sections acquired from the diaphragms to the iliac crests. After the administration of intravenous contrast, 5 mm thick sections acquired from the diaphragms to the symphysis. 5 mm thick coronal and sagittal reformats were acquired. For radiation dose reduction, the following was used: automated exposure control, adjustment of mA and/or kV according to patient size. COMPARISON: None. FINDINGS: Image quality: Excellent. ABDOMEN: Lung bases: Lung bases are clear. Heart size is normal. Solid organs: Liver is normal in size and enhancement. Gallbladder appears normal . Biliary system is non-dilated. Pancreas enhances normally. Spleen is normal in size and enhancement. No adrenal nodules. Both kidneys are normal in size. There is mild hydronephrosis bilaterally but no nephrolithiasis. Bowel and peritoneum: Stomach, small and large bowel loops are normal in caliber and wall thickness. No free fluid or air. Note is made of asymmetric right greater than left colonic obstipation. Nodes and vessels: No retroperitoneal or mesenteric adenopathy by size criteria. Aorta and inferior vena are normal in caliber. Miscellaneous: No ventral hernias. PELVIS: Noted. Genitourinary: Bladder wall thickness is normal. The bladder, however, is prominently distended. It measures up to 10.9 cm AP, 13.7 cm transverse and 19.7 cm craniocaudad. Miscellaneous: No inguinal hernias or adenopathy. Bones: No suspicious bony lesions. No vertebral body compression fractures. IMPRESSION: No evidence of renal abscess, or renal calculus. Mild bilateral hydronephrosis is likely due to back pressure related to prominent bladder distention which measures up to 10.9 x 13.7 x 19.7 cm in maximal AP, transverse and craniocaudad dimensions. Asymmetric right greater than left colonic obstipation is incidentally Dictated by: Nayan Koroma M.D. on 11/22/2019 at 18:17 Approved by: Nayan Koroma M.D. on 11/22/2019 at 18:22
[2019-11-22] MEDS: INSULIN REGULAR 100 UNIT/ML 3 ML VIAL 10 UNIT IV (16:59)
[2019-11-22 17:13] LABS: Ketones (Beta-Hydroxybutyrate) 18.16 mmol/L (<0.27)
[2019-11-22] MEDS: diphenhydrAMINE 50 MG/ML VIAL 25 MG IV (17:25)
[2019-11-22] MEDS: methylPREDNISolone 125 MG/2 ML VIAL IV (17:25)
[2019-11-22 17:41] LABS: Pregnancy Test Serum,Qual Negative (Negative)
[2019-11-22 18:09] LABS: COVID19 -Nasal RAPID Negative (Negative)
[2019-11-22 19:48] LABS: Bacteria Urine Few (2-10); RBC Urine 0-1/HPF (0-5/HPF); Squamous Epithelial Cell Urine 1-5 /HPF (0-5/HPF); WBC Urine 1-5/HPF (0-5/HPF)
[2019-11-22] MEDS: SODIUM CHLORIDE 0.45% 1,000 ML 200 ML IV (19:54)
[2019-11-22 20:30] LABS: BUN Creatinine Ratio 17.4 (6-22); Blood Urea Nitrogen 15 mg/dL (7-17); Chloride 114 mmol/L (98-107); Estimated Glomerular Filt Rate > 60.0 mL/min (>60); Glucose 621 mg/dL (70-100); HEMOLYSIS 35 (0-50); Magnesium 2.3 mg/dL (1.6-2.3); Phosphorous 5.7 mg/dL (2.5-4.5); Potassium 5.2 mmol/L (3.4-5.1); Sodium 145 mmol/L (137-145)
[2019-11-22 20:31] LABS: Carbon Dioxide < 5 mmol/L (22-32)
[2019-11-22 20:47] LABS: C-Reactive Protein Quant < 0.5 mg/dL (<1.0)
[2019-11-22] MEDS: DEXTROSE 5%-0.45% NS 1,000 ML 61.5 ML IV (21:17)
[2019-11-22] MEDS: INSULIN DRIP PREMIX 100 UNIT/100 ML PLAST..BAG IV (21:17)
[2019-11-22] MEDS: DOCUSATE 100 MG CAPSULE PO (21:41)
[2019-11-22 21:53] LABS: BUN Creatinine Ratio 18.7 (6-22); Blood Urea Nitrogen 14 mg/dL (7-17); Calcium 8.7 mg/dL (8.4-10.2); Estimated Glomerular Filt Rate > 60.0 mL/min (>60); Glucose 143 mg/dL (70-100); HEMOLYSIS < 15 (0-50); Magnesium 1.9 mg/dL (1.6-2.3); Phosphorous 2.7 mg/dL (2.5-4.5); Sodium 149 mmol/L (137-145)
[2019-11-22 21:59] LABS: Chloride 124 mmol/L (98-107)
[2019-11-22 22:00] LABS: Carbon Dioxide 8 mmol/L (22-32)
[2019-11-22] MEDS: DEXTROSE 5% WATER 1,000 ML 150 ML IV (23:25)
--- NOTE | 2019-11-22 23:29 | PM.HP.1 ---
History of Present Illness History of Present Illness Date Patient Seen: 11/22/19 Time Patient Seen: 20:30 Chief complaint: DKA Narrative: Ms. Sarabjit Jimenes is a 29-year-old female patient with a history significant for type 1 diabetes, migraines, irregular menstruation and frequent admissions for DKA who presents to the ER with complaints of generalized body aches fatigue and feeling unwell. The patient was just discharged from [facility] in the afternoon of 11/21/2019. The patient states that following discharge she went home took a shower and played video game prior to going to bed. She takes states she slept poorly and could not get comfortable related to body aches. She reports that she has been compliant with her medications using Humalog for sliding scale and 53 units of Tresiba daily at 11 am but did not take today's dose due to sleepiness. 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 Her hemoglobin A1c has been greater than 14 since June of 2018. The patient denies any complaints of fevers or chills, rashes or lesions, urinary symptoms or vaginal discharge. She has a scalp wound that she had underwent recent debridement by Dr. Anderson and is followed at the wound clinic here. The patient plantar most recent admission on diarrhea following eating chicken that she felt was bad. She denies complaints of chest pain or palpitations, epigastric or abdominal pain pain, nausea or vomiting. She reports no further diarrhea and denies urinary symptoms. Upon arrival the patient is afebrile with temperature 98.5?, tachycardic at 145, blood pressure 155/99, respirations of 18 saturating 98% on room air. A chest x-ray is obtained which is unremarkable, CT the abdomen pelvis is obtained due to previous history of pyelonephritis, no renal abscess or calculi are identified, mild bilateral hydronephrosis with prominent bladder distension, right greater than left colonic obstipation. On laboratory analysis she has white count of 10.0 with mild elevation neutrophils at 82.2%, hemoglobin of 13.7 hematocrit of 43.0, platelets are 399. Sodium is 145 and potassium is 4.8, magnesium is 2.2 and phos is 5.2. BUN is 14 and creatinine is 0.88. Blood sugar upon arrival is 602. She does have an elevated alkaline phosphatase of 176 otherwise liver functions within normal range. Albumin is 4.7. On urinalysis she has 3+ ketones trace blood negative for protein, no nitrates, no leukocyte esterase, few bacteria. Procalcitonin is 0.09. VBG finds a pH of 7.01, bicarb of 2 and a base excess of -29. Serum test is negative. In the emergency department patient received normal saline 2 L and normal saline 200 cc/hour, IV insulin, insulin drip, blood cultures were obtained and GI panel ordered. A vaginal exam is completed however the patient is intolerant of the speculum and bimanual exam finds no cervical motion tenderness and vaginal cultures are obtained. Patient is admitted to the medicine service for recurrent diabetic ketoacidosis. Patient History Medical History DKA (diabetic ketoacidoses) (Resolved) History of pyelonephritis (Resolved) Irregular menstrual cycle (Acute) Migraine headache (Chronic) Nephrolithiasis (Resolved) Type 1 diabetes mellitus (Chronic) Surgical History History of ureter stent (Resolved) Hx of local excision of skin lesion (Acute) Status post laser lithotripsy of ureteral calculus (Acute) [place] teeth extracted (Acute) Family & Social History Family History Father In good health Mother Cardiac disease Social History: household members significant other,family Prior Living Arrangements House Safety & Behavioral: Feels Safe in Current Yes Environment Been Physically Hurt or No Threatened By a Person Suicidal Ideation Description None Suicide Plan Description No Plan Tobacco & Substance use: Smoking Status Never smoker alcohol intake current alcohol intake frequency 0-2 drinks per day Substance Use Type does not use Meds Home Medications and Allergies Home Medications Medication Instructions Recorded Confirmed Type glucose 4 gram PO Q15M PRN #30 tab 12/12/18 11/22/19 Rx Glucagon Emergency Kit (human) 1 mg SUBCUT DIRECTED 02/16/19 11/22/19 History hydroxyzine pamoate [Vistaril] 50 mg PO QID PRN 30 Days #20 cap 10/30/19 11/22/19 Rx insulin aspart U-100 [Novolog 7 unit SUBCUT AC #30 ml 10/30/19 11/22/19 Rx Flexpen U-100 Insulin] insulin degludec 53 unit SUBCUT DAILY 11/21/19 11/22/19 History Allergies Allergy/AdvReac Type Severity Reaction Status Date / Time abdalla [ABDALLA] Allergy Intermediate Hives, Verified 11/22/19 14:46 pruritus iodine [IODINE] Allergy Intermediate rash, itchy Verified 11/22/19 14:46 morphine Allergy Intermediate Difficulty Verified 11/22/19 14:46 Breathing shellfish derived Allergy Intermediate rash Verified 11/22/19 14:46 [SHELLFISH DERIVED] adhesive [ADHESIVE] Allergy Unknown tape Verified 11/22/19 14:46 latex [LATEX] Allergy Unknown Hives Verified 11/22/19 14:46 Exam Vital Signs (past 8 hours): - 11/22/19 15:30 11/22/19 15:35 11/22/19 16:00 Temperature Pulse Rate 142 H 144 H 138 H Respiratory Rate 41 H 22 Blood Pressure 154/89 H 124/74 Pulse Oximetry 99 99 11/22/19 16:30 11/22/19 16:45 11/22/19 17:00 Temperature Pulse Rate 135 H 135 H 137 H Respiratory Rate 35 H 25 H Blood Pressure 121/74 127/79 Pulse Oximetry 100 100 100 11/22/19 18:53 11/22/19 19:49 11/22/19 20:55 Temperature 97.6 F Pulse Rate 134 H 110 H 114 H Respiratory Rate 16 18 Blood Pressure 131/78 124/75 Pulse Oximetry 100 100 100 11/22/19 21:49 Temperature 97.6 F Pulse Rate 110 H Respiratory Rate 18 Blood Pressure 124/75 Pulse Oximetry Oxygen Delivery Method Room Air Oxygen Flow Rate 0 Narrative Exam Narrative: GENERAL APPEARANCE: well developed, well nourished, in no acute distress. HEENT: Normocephalic, PERRLA, conjunctiva clear, EOMs intact without nystagmus, no sinus tenderness to percussion, no rhinorrhea, mucous membranes are dry and pink without lesions or exudate. NECK/THYROID: neck supple, nontender trachea midline. LYMPH NODES: no cervical or supraclavicular lymphadenopathy. SKIN: [place], warm and dry, chronic skin wound without drainage or erythema. HEART: Tachycardia with regular rhythm, S1-S2, no murmur, no rubs or gallops, brisk capillary refill, no edema LUNGS: clear to auscultation bilaterally, no coarseness crackles or wheezing, no cough present CHEST: Symmetrical movement, no accessory muscle use, good tidal volume. ABDOMEN: Soft, no distention, no abdominal tenderness, no guarding or peritoneal signs, no organomegaly, no flank or suprapubic tenderness, active bowel tones. BACK: Normal curvature, nontender to palpation, no CVA tenderness on percussion EXTREMITIES: moves all extremities, strength is 5/5 and symmetrical, no deformities or joint effusions. NEUROLOGIC: AAO x4, no focal neurologic deficits, cranial nerves II-XII grossly intact, sensation intact to light touch, hearing grossly normal to speech. PSYCH: Good judgment, good insight, linear thought process, cooperative, appropriate with stable behavior Objective Labs Result Diagrams: 11/22/19 15:24 11/23/19 01:00 Labs: Laboratory Results - last 24 hr 11/22/19 11/22/19 11/22/19 15:07 15:24 15:24 WBC 10.0 RBC 4.13 Hgb 13.7 Hct 43.0 MCV 104.2 H MCH 33.1 MCHC 31.8 RDW 13.6 Plt Count 399 Neut % (Auto) 82.2 H Lymph % (Auto) 13.8 L [place] % (Auto) 2.9 L Eos % (Auto) 0.1 L Baso % (Auto) 1.0 Neut # (Auto) 8200 H Lymph # (Auto) 1400 [place] # (Auto) 300 Eos # (Auto) 0 Baso # (Auto) 100 VBG pH VBG pCO2 VBG pO2 VBG HCO3 VBG Total CO2 VBG O2 Saturation VBG Base Excess Sodium Potassium Chloride Carbon Dioxide BUN Creatinine Estimated GFR BUN/Creatinine Ratio Glucose Lactate Calcium Phosphorus Magnesium Total Bilirubin AST ALT Alkaline Phosphatase C-Reactive Protein Total Protein Albumin Globulin Albumin/Globulin Ratio Procalcitonin 0.09 Serum , Qual Urine RBC Urine WBC Ur Squamous Epith Cells Urine Bacteria Ur Culture Indicated? Ketones COVID-19 PCR Negative 11/22/19 11/22/19 11/22/19 15:24 15:24 15:24 WBC RBC Hgb Hct MCV MCH MCHC RDW Plt Count Neut % (Auto) Lymph % (Auto) [place] % (Auto) Eos % (Auto) Baso % (Auto) Neut # (Auto) Lymph # (Auto) [place] # (Auto) Eos # (Auto) Baso # (Auto) VBG pH VBG pCO2 VBG pO2 VBG HCO3 VBG Total CO2 VBG O2 Saturation VBG Base Excess Sodium 145 Potassium 4.8 Chloride 114 H Carbon Dioxide < 5 L* BUN 14 Creatinine 0.88 Estimated GFR > 60.0 BUN/Creatinine Ratio 15.9 Glucose 602 H* D Lactate 1.3 Calcium 9.7 Phosphorus 5.2 H D Magnesium 2.2 Total Bilirubin 0.5 AST 20 ALT 19 Alkaline Phosphatase 176 H C-Reactive Protein Total Protein 7.9 Albumin 4.7 Globulin 3.2 Albumin/Globulin Ratio 1.5 Procalcitonin Serum , Qual Urine RBC Urine WBC Ur Squamous Epith Cells Urine Bacteria Ur Culture Indicated? Ketones 18.16 H COVID-19 PCR 11/22/19 11/22/19 11/22/19 15:24 15:24 15:24 WBC RBC Hgb Hct MCV MCH MCHC RDW Plt Count Neut % (Auto) Lymph % (Auto) [place] % (Auto) Eos % (Auto) Baso % (Auto) Neut # (Auto) Lymph # (Auto) [place] # (Auto) Eos # (Auto) Baso # (Auto) VBG pH VBG pCO2 VBG pO2 VBG HCO3 VBG Total CO2 VBG O2 Saturation VBG Base Excess Sodium 145 Potassium 5.2 H Chloride 114 H Carbon Dioxide < 5 L* BUN 15 Creatinine 0.86 Estimated GFR > 60.0 BUN/Creatinine Ratio 17.4 Glucose 621 H* Lactate Calcium 10.0 Phosphorus 5.7 H Magnesium 2.3 Total Bilirubin AST ALT Alkaline Phosphatase C-Reactive Protein < 0.5 Total Protein Albumin Globulin Albumin/Globulin Ratio Procalcitonin Serum , Qual Negative Urine RBC Urine WBC Ur Squamous Epith Cells Urine Bacteria Ur Culture Indicated? Ketones COVID-19 PCR 11/22/19 11/22/19 11/22/19 15:25 19:20 21:30 WBC RBC Hgb Hct MCV MCH MCHC RDW Plt Count Neut % (Auto) Lymph % (Auto) [place] % (Auto) Eos % (Auto) Baso % (Auto) Neut # (Auto) Lymph # (Auto) [place] # (Auto) Eos # (Auto) Baso # (Auto) VBG pH 7.01 L* VBG pCO2 7.4 L VBG pO2 103 H VBG HCO3 2 L VBG Total CO2 < 5 L VBG O2 Saturation 94 H VBG Base Excess -29.0 L Sodium 149 H Potassium 4.0 D Chloride 124 H* Carbon Dioxide 8 L* BUN 14 Creatinine 0.75 Estimated GFR > 60.0 BUN/Creatinine Ratio 18.7 Glucose 143 H D Lactate Calcium 8.7 Phosphorus 2.7 D Magnesium 1.9 Total Bilirubin AST ALT Alkaline Phosphatase C-Reactive Protein Total Protein Albumin Globulin Albumin/Globulin Ratio Procalcitonin Serum , Qual Urine RBC 0-1/hpf Urine WBC 1-5/hpf Ur Squamous Epith Cells 1-5 /hpf Urine Bacteria Few (2-10) H Ur Culture Indicated? Culture not indicate Ketones COVID-19 PCR Assessment & Plan Assessment & Plan narrative: This is a 29-year-old female patient with frequent recurrent episodes of diabetic ketoacidosis who returns after being discharged yesterday once again in DKA with no clear triggering event. 1. Acute diabetic ketoacidosis, in uncontrolled diabetes mellitus type 1, present on admission, active. -patient was discharged 1 day ago following treatment for DKA returning today with a blood sugar over 600. -Hemoglobin A1c >14% since June of 2018 indicative of poor glycemic control likely multifactorial. -Initial blood glucose 602, VBG pH 7.01, HC03 2, base excess -29. Anion gap is 26. -chest x-ray is unremarkable, COVID-19 negative. WBC normal with mild increase in neutrophils had 82.2%, procalcitonin negative. Will order a CRP. -the patient received 2 L of normal saline in the emergency department with normal saline at 200 cc/hour. Requested changed to D5 half-normal saline due to elevated chloride of 114 contributing to acidotic state -patient was started on insulin drip in the emergency department without titration prompting rapid drop in blood sugar. Will check electrolytes including BMP, magnesium and phos every 4 hours. -when blood sugars less than 200 will start D5-0.45% normal saline at 150 cc/hour and continue until anion gap closes in acidosis improves. -ordered Reglan 10 mg IV every 8 hours as needed for nausea. 2. Generalized myalgias, acute, present on admission, active -Patient reports she has diffuse body aching while experiencing DKA which responds to IV Dilaudid. -order Benadryl 25 mg IV as needed for itching 3. Neurogenic bladder secondary to autonomic nerve dysfunction secondary to diabetes, chronic, present on admission, stable -and CT find no source of infection however bilateral hydronephrosis present with prominent distention of bladder. -Urinalysis is negative for infection, 4. Scalp wound status post debridement, present on admission, Stable. -wound is without drainage, no evidence of cellulitis, followed at the wound care clinic. VTE prophylaxis, bilateral SCDs, heparin IV fluid: 1/2 normal saline at 200 cc/hour, 1 blood sugar less than 200 will change D5 1/2 normal saline at 150 cc per Diet: NPO Code status: FULL CODE, her surrogate decision maker is her nina Gonzales. The patient is admitted as an inpatient to the ICU for with diabetic ketoacidosis on insulin infusion requiring close monitoring and frequent interventions. Critical care time: 50 minutes with over 50% of the time spent in direct [id number] with the patient. Quality VTE Deep Vein Thrombosis/Pulmonary Embolism Present on Admission: No
[2019-11-23] VITALS (14 sets, daily range): BP systolic 95–124; BP diastolic 50–75; PULSE 87–111; RESP 13–18; TEMP 36.3–37.5; O2SAT 96–100
[2019-11-23 01:16] LABS: BUN Creatinine Ratio 20.6 (6-22); Blood Urea Nitrogen 14 mg/dL (7-17); Calcium 8.9 mg/dL (8.4-10.2); Estimated Glomerular Filt Rate > 60.0 mL/min (>60); Glucose 196 mg/dL (70-100); HEMOLYSIS < 15 (0-50); Magnesium 1.9 mg/dL (1.6-2.3); Potassium 3.9 mmol/L (3.4-5.1); Sodium 145 mmol/L (137-145)
[2019-11-23 01:20] LABS: Carbon Dioxide 8 mmol/L (22-32); Chloride 122 mmol/L (98-107)
--- NOTE | 2019-11-23 02:28 | PC.NURSE ---
Addendum entered by Mary Nagel R.N. 11/23/19 02:38: 0120 Critical lab value Chloride 122, CO2 8, provider Omari Spicer notified, no new orders at this time, will continue to monitor Original Note: 2046 Pt arrived via gurney for ED, well known to this nurse for DKA, current FSBG 312 per ED nurse Mayur. Pt able to ambulate to bed, insulin gtt infusing at 6units/hr, no other fluids infusing. Pt tearful, pain 10/10 generalized, pt requesting pain meds. Administered IV dilaudid 1mg per order. Pt oriented to room and call light system, connected to monitors, FSBG is currently 231, per protocol insulin titrated to 4.1 with D51/2NS at 61.5ml/hr. Provider Omari Spicer at bedside, verbal order to increase fluids to 150ml/hr and when BG drops below 145 start D5 instead of current fluids. 2315 replaced current IVF with D5 per orders, FSBG 144. Will continue to monitor
[2019-11-23] MEDS: diphenhydrAMINE 50 MG/ML VIAL 25 MG IV ×3 (03:36→21:12)
[2019-11-23] MEDS: HYDROMORPHONE 1 MG INJ IV ×7 (03:36→21:13)
[2019-11-23] MEDS: DEXTROSE 5% WATER 1,000 ML 100 ML IV (05:34)
[2019-11-23 06:53] LABS: Alanine Aminotransferase 16 IU/L (<35); Albumin 4.2 g/dL (3.5-5.0); Albumin Globulin Ratio 1.4 (1.0-2.8); Alkaline Phosphatase 121 U/L (38-126); Aspartate Aminotransferase 18 IU/L (14-36); BUN Creatinine Ratio 21.3 (6-22); Bilirubin Total 0.6 mg/dL (0.2-1.3); Blood Urea Nitrogen 13 mg/dL (7-17); Calcium 9.5 mg/dL (8.4-10.2); Carbon Dioxide 15 mmol/L (22-32); Chloride 118 mmol/L (98-107); Estimated Glomerular Filt Rate > 60.0 mL/min (>60); Glucose 138 mg/dL (70-100); HEMOLYSIS < 15 (0-50); Magnesium 1.9 mg/dL (1.6-2.3); Potassium 3.7 mmol/L (3.4-5.1); Sodium 142 mmol/L (137-145); Total Protein 7.2 g/dL (6.3-8.2)
--- NOTE | 2019-11-23 07:08 | PC.NURSE ---
pt lying in bed with flushed face and crying -reports pain as 9/10 and states everywhere when asked the source of rickey pain- anion gap closed at 9 ivf continues to be d5W @ 100cc/h and insulin gtt at 2.2/h
[2019-11-23] MEDS: DOCUSATE 100 MG CAPSULE PO ×2 (09:27→21:12)
[2019-11-23 10:56] LABS: BUN Creatinine Ratio 23.2 (6-22); Blood Urea Nitrogen 13 mg/dL (7-17); Carbon Dioxide 18 mmol/L (22-32); Chloride 117 mmol/L (98-107); Estimated Glomerular Filt Rate > 60.0 mL/min (>60); Glucose 101 mg/dL (70-100); HEMOLYSIS < 15 (0-50); Potassium 3.2 mmol/L (3.4-5.1); Sodium 141 mmol/L (137-145)
--- NOTE | 2019-11-23 11:03 | PM.PN.1 ---
Subjective Subjective Date Patient Seen: 11/23/19 Time Patient Seen: 11:05 Interval history: Sarabjit Jimenes is a 29-year-old female with past history of poorly controlled type 1 diabetes and recent frequent admissions for DKA who was recently discharged over the weekend and came back yesterday again in DKA. She states she still felt poorly when she went home and slept for most of the day, and actually forgot to take her usual dose of Tresiba. Her labs have improved this morning, with a bicarb of 18 at 10:30 a.m. and her anion gap closed. She will be given her usual dose of Tresiba this morning and will shut off her insulin infusion later this afternoon. She complains of generalized fatigue this morning but denies any specific complaints of chest pain, abdominal pain, shortness of breath, dysuria, urinary frequency. Exam Vital Signs (past 8 hours): - 11/23/19 03:15 11/23/19 03:30 11/23/19 03:45 Temperature Pulse Rate 93 H 96 H 99 H Respiratory Rate Blood Pressure Pulse Oximetry 100 100 98 11/23/19 04:00 11/23/19 05:29 11/23/19 06:27 Temperature 97.5 F L Pulse Rate 101 H 97 H 90 Respiratory Rate 16 14 Blood Pressure 97/65 107/58 L 98/62 Pulse Oximetry 97 96 100 11/23/19 07:43 11/23/19 08:00 Temperature 98.3 F Pulse Rate 98 H 100 H Respiratory Rate 14 17 Blood Pressure 98/50 L Pulse Oximetry 98 99 Oxygen Delivery Method Room Air Oxygen Flow Rate 0 Narrative Exam Narrative: GENERAL APPEARANCE: well developed, well nourished, in no acute distress. HEENT: Normocephalic, PERRLA, conjunctiva clear, EOMs intact without nystagmus, no sinus tenderness to percussion, no rhinorrhea, mucous membranes are now moist and pink without lesions or exudate. NECK/THYROID: neck supple, nontender trachea midline. LYMPH NODES: no cervical or supraclavicular lymphadenopathy. SKIN: [place], warm and dry, chronic skin wound without drainage or erythema. HEART: Tachycardia with regular rhythm, S1-S2, no murmur, no rubs or gallops, brisk capillary refill, no edema LUNGS: clear to auscultation bilaterally, no coarseness crackles or wheezing, no cough present CHEST: Symmetrical movement, no accessory muscle use, good tidal volume. ABDOMEN: Soft, no distention, no abdominal tenderness, no guarding or peritoneal signs, no organomegaly, no flank or suprapubic tenderness, active bowel tones. BACK: Normal curvature, nontender to palpation, no CVA tenderness on percussion EXTREMITIES: moves all extremities, strength is 5/5 and symmetrical, no deformities or joint effusions. NEUROLOGIC: AAO x4, no focal neurologic deficits, cranial nerves II-XII grossly intact, sensation intact to light touch, hearing grossly normal to speech. PSYCH: Good judgment, good insight, linear thought process, cooperative, appropriate with stable behavior Objective Labs Result Diagrams: 11/22/19 15:24 11/23/19 10:30 Labs: Laboratory Results - last 24 hr 11/22/19 11/22/19 11/22/19 15:07 15:24 15:24 WBC 10.0 RBC 4.13 Hgb 13.7 Hct 43.0 MCV 104.2 H MCH 33.1 MCHC 31.8 RDW 13.6 Plt Count 399 Neut % (Auto) 82.2 H Lymph % (Auto) 13.8 L [place] % (Auto) 2.9 L Eos % (Auto) 0.1 L Baso % (Auto) 1.0 Neut # (Auto) 8200 H Lymph # (Auto) 1400 [place] # (Auto) 300 Eos # (Auto) 0 Baso # (Auto) 100 VBG pH VBG pCO2 VBG pO2 VBG HCO3 VBG Total CO2 VBG O2 Saturation VBG Base Excess Sodium Potassium Chloride Carbon Dioxide BUN Creatinine Estimated GFR BUN/Creatinine Ratio Glucose Lactate Calcium Phosphorus Magnesium Total Bilirubin AST ALT Alkaline Phosphatase C-Reactive Protein Total Protein Albumin Globulin Albumin/Globulin Ratio Procalcitonin 0.09 Serum , Qual Urine RBC Urine WBC Ur Squamous Epith Cells Urine Bacteria Ur Culture Indicated? Nasal Screen MRSA (PCR) Ketones COVID-19 PCR Negative 11/22/19 11/22/19 11/22/19 15:24 15:24 15:24 WBC RBC Hgb Hct MCV MCH MCHC RDW Plt Count Neut % (Auto) Lymph % (Auto) [place] % (Auto) Eos % (Auto) Baso % (Auto) Neut # (Auto) Lymph # (Auto) [place] # (Auto) Eos # (Auto) Baso # (Auto) VBG pH VBG pCO2 VBG pO2 VBG HCO3 VBG Total CO2 VBG O2 Saturation VBG Base Excess Sodium 145 Potassium 4.8 Chloride 114 H Carbon Dioxide < 5 L* BUN 14 Creatinine 0.88 Estimated GFR > 60.0 BUN/Creatinine Ratio 15.9 Glucose 602 H* D Lactate 1.3 Calcium 9.7 Phosphorus 5.2 H D Magnesium 2.2 Total Bilirubin 0.5 AST 20 ALT 19 Alkaline Phosphatase 176 H C-Reactive Protein Total Protein 7.9 Albumin 4.7 Globulin 3.2 Albumin/Globulin Ratio 1.5 Procalcitonin Serum , Qual Urine RBC Urine WBC Ur Squamous Epith Cells Urine Bacteria Ur Culture Indicated? Nasal Screen MRSA (PCR) Ketones 18.16 H COVID-19 PCR 11/22/19 11/22/19 11/22/19 15:24 15:24 15:24 WBC RBC Hgb Hct MCV MCH MCHC RDW Plt Count Neut % (Auto) Lymph % (Auto) [place] % (Auto) Eos % (Auto) Baso % (Auto) Neut # (Auto) Lymph # (Auto) [place] # (Auto) Eos # (Auto) Baso # (Auto) VBG pH VBG pCO2 VBG pO2 VBG HCO3 VBG Total CO2 VBG O2 Saturation VBG Base Excess Sodium 145 Potassium 5.2 H Chloride 114 H Carbon Dioxide < 5 L* BUN 15 Creatinine 0.86 Estimated GFR > 60.0 BUN/Creatinine Ratio 17.4 Glucose 621 H* Lactate Calcium 10.0 Phosphorus 5.7 H Magnesium 2.3 Total Bilirubin AST ALT Alkaline Phosphatase C-Reactive Protein < 0.5 Total Protein Albumin Globulin Albumin/Globulin Ratio Procalcitonin Serum , Qual Negative Urine RBC Urine WBC Ur Squamous Epith Cells Urine Bacteria Ur Culture Indicated? Nasal Screen MRSA (PCR) Ketones COVID-19 PCR 11/22/19 11/22/19 11/22/19 15:25 19:20 21:30 WBC RBC Hgb Hct MCV MCH MCHC RDW Plt Count Neut % (Auto) Lymph % (Auto) [place] % (Auto) Eos % (Auto) Baso % (Auto) Neut # (Auto) Lymph # (Auto) [place] # (Auto) Eos # (Auto) Baso # (Auto) VBG pH 7.01 L* VBG pCO2 7.4 L VBG pO2 103 H VBG HCO3 2 L VBG Total CO2 < 5 L VBG O2 Saturation 94 H VBG Base Excess -29.0 L Sodium 149 H Potassium 4.0 D Chloride 124 H* Carbon Dioxide 8 L* BUN 14 Creatinine 0.75 Estimated GFR > 60.0 BUN/Creatinine Ratio 18.7 Glucose 143 H D Lactate Calcium 8.7 Phosphorus 2.7 D Magnesium 1.9 Total Bilirubin AST ALT Alkaline Phosphatase C-Reactive Protein Total Protein Albumin Globulin Albumin/Globulin Ratio Procalcitonin Serum , Qual Urine RBC 0-1/hpf Urine WBC 1-5/hpf Ur Squamous Epith Cells 1-5 /hpf Urine Bacteria Few (2-10) H Ur Culture Indicated? Culture not indicate Nasal Screen MRSA (PCR) Ketones COVID-19 PCR 11/22/19 11/23/19 11/23/19 21:55 01:00 01:00 WBC RBC Hgb Hct MCV MCH MCHC RDW Plt Count Neut % (Auto) Lymph % (Auto) [place] % (Auto) Eos % (Auto) Baso % (Auto) Neut # (Auto) Lymph # (Auto) [place] # (Auto) Eos # (Auto) Baso # (Auto) VBG pH VBG pCO2 VBG pO2 VBG HCO3 VBG Total CO2 VBG O2 Saturation VBG Base Excess Sodium 145 Potassium 3.9 Chloride 122 H* Carbon Dioxide 8 L* BUN 14 Creatinine 0.68 Estimated GFR > 60.0 BUN/Creatinine Ratio 20.6 Glucose 196 H Lactate Calcium 8.9 Phosphorus 3.0 Magnesium 1.9 Total Bilirubin AST ALT Alkaline Phosphatase C-Reactive Protein Total Protein Albumin Globulin Albumin/Globulin Ratio Procalcitonin Serum , Qual Urine RBC Urine WBC Ur Squamous Epith Cells Urine Bacteria Ur Culture Indicated? Nasal Screen MRSA (PCR) Negative for mrsa Ketones COVID-19 PCR 11/23/19 11/23/19 06:33 10:30 WBC RBC Hgb Hct MCV MCH MCHC RDW Plt Count Neut % (Auto) Lymph % (Auto) [place] % (Auto) Eos % (Auto) Baso % (Auto) Neut # (Auto) Lymph # (Auto) [place] # (Auto) Eos # (Auto) Baso # (Auto) VBG pH VBG pCO2 VBG pO2 VBG HCO3 VBG Total CO2 VBG O2 Saturation VBG Base Excess Sodium 142 141 Potassium 3.7 3.2 L Chloride 118 H 117 H Carbon Dioxide 15 L 18 L BUN 13 13 Creatinine 0.61 0.56 Estimated GFR > 60.0 > 60.0 BUN/Creatinine Ratio 21.3 23.2 H Glucose 138 H 101 H Lactate Calcium 9.5 9.0 Phosphorus Magnesium 1.9 Total Bilirubin 0.6 AST 18 ALT 16 Alkaline Phosphatase 121 D C-Reactive Protein Total Protein 7.2 Albumin 4.2 Globulin 3.0 Albumin/Globulin Ratio 1.4 Procalcitonin Serum , Qual Urine RBC Urine WBC Ur Squamous Epith Cells Urine Bacteria Ur Culture Indicated? Nasal Screen MRSA (PCR) Ketones COVID-19 PCR Assessment & Plan Assessment & Plan narrative: This is a 29-year-old female patient with frequent recurrent episodes of diabetic ketoacidosis admitted for the same. 1. Acute diabetic ketoacidosis, in uncontrolled diabetes mellitus type 1, present on admission, active. 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 -Hemoglobin A1c >14% since June of 2018 indicative of poor glycemic control likely multifactorial. -Initial blood glucose 602, VBG pH 7.01, HC03 2, base excess -29. Anion gap was 26. Now HCO3 of 18 and closed anion gap. -chest x-ray is unremarkable, COVID-19 negative. No evidence of active infection. -the patient received 2 L of normal saline in the emergency department with normal saline at 200 cc/hour. -patient was started on insulin drip in the emergency department without titration prompting rapid drop in blood sugar. Now stabilized and patient with improved labs and stable glucose. To resume home tresiba this AM, can start diet and likely discharge tomorrow if sugars remain controlled. -ordered Reglan 10 mg IV every 8 hours as needed for nausea. 2. Generalized myalgias, acute, present on admission, active -Patient reports she has diffuse body aching while experiencing DKA which responds to IV Dilaudid. -order Benadryl 25 mg IV as needed for itching 3. Neurogenic bladder secondary to autonomic nerve dysfunction secondary to diabetes, chronic, present on admission, stable -and CT find no source of infection however bilateral hydronephrosis present with prominent distention of bladder. -Urinalysis is negative for infection, -continue to educate on timed voiding. 4. Scalp wound status post debridement, present on admission, Stable. -wound is without drainage, no evidence of cellulitis, followed at the wound care clinic. Code status: FULL CODE, her surrogate decision maker is her nina Gonzales. The patient is admitted as an inpatient to the ICU with diabetic ketoacidosis on insulin infusion. Likely stable for regular floor this afternoon once off insulin infusion. I spent 35 minutes providing critical care management this patient. This excludes time spent in performing separately billed procedures. COVID-19 COVID-19 status: Negative Quality VTE Deep Vein Thrombosis/Pulmonary Embolism Present on Admission: No
--- NOTE | 2019-11-23 11:27 | CM.DANOTE ---
DCP Assessment: EMR reviewed: Patient is a 29 yr old female who was re-admitted for DKA and uncontrolled type 1 DM. 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 Patient currently lives with her boy friend in [facility] and plans on D/C home with him when medically stable. Patient seen weekly at the wound care clinic to change dressings of a slow healing scalp wound w/ h/o I+D. CM/Rn met with patient at the bedside and explained role. Patient was alert and oriented at time of CM/RN visit. Patient is currently independent with all ADL's at base line. CM/Rn asked patient if she has SI and patient stated no she wants to live and is happy to be on the track to get an insulin pump. Patient stated she wants to get this all working she just needs to be better to complete everything she is doing. Cm/Rn called [facility] showcase maker and left a message letting them know patient was here and that she is interested in working with case management. I: [facility] and medicaid Plan: D/C home with boyfriend when medically stable continue working with Endocrinology to get Insulin pump. No identified D/C planning need noted at this time. Yadira Terrell RN Discharge Planning/Care Management CM Discharge Assessment Start: 11/23/19 11:19 Freq: Status: Active Protocol: Document 11/23/19 11:19 HS (Rec: 11/23/19 11:26 HS [id number]) Discharge Planning Assessment Assigned Ultrasonic Seaming Machine Operator Yadira Terrell RN DPOA/Assigned Designee Name Peter Jimenes (father)or Reggie Motley (significant other) Contact Information [phone] Advance Directives? No History Provided By Patient,Medical Record Has Patient been admitted in last 30 Yes days? Comment Patient was last d/C on 2019 Prior Living Arrangements House Household Members significant other,family Independent with ADL's Yes Is patient alert and oriented? Yes Caregiver for Another No Comment Has supportive partner and family that live close Discharge Plan Home Transportation Arrangement Significant other can provide transport at d/c. Referrals Initiated None needed Additional Comment Will contact [facility] to see about possible case management referral. Whiteboard Updated in Patient Room with Yes name and ext. # of Ultrasonic Seaming Machine Operator Review Status In Process Next Review Type Continued Stay Review
[2019-11-23] MEDS: INSULIN DEGLUDEC 53 EACH SUBCUT (11:54)
[2019-11-23] MEDS: POTASSIUM CHLORIDE 20 MEQ TAB 40 MEQ PO (11:56)
[2019-11-23] MEDS: POTASSIUM CHLORIDE 20 MEQ/15 ML UDC 40 MEQ PO (14:23)
[2019-11-23] MEDS: INSULIN ASPART 100 UNIT/ML INSULN PEN SUBCUT (17:08)
[2019-11-23] MEDS: INSULIN ASPART 100 UNIT/ML INSULN PEN 7 UNIT SUBCUT (17:09)
[2019-11-23] MEDS: BISACODYL 5 MG TABLET 10 MG PO (21:12)
[2019-11-24 00:06] VITALS: BP 101/66; PULSE 97; RESP 18; TEMP 37; O2SAT 99
[2019-11-24] MEDS: HYDROMORPHONE 1 MG INJ IV ×5 (00:12→12:27)
[2019-11-24 04:08] VITALS: BP 116/78; PULSE 101; RESP 16; TEMP 36.4; O2SAT 100
--- NOTE | 2019-11-24 05:54 | PC.NURSE ---
Pt complains of generalized pain and head wound pain. Given Dilaudid 1mg IV q3h PRN Pt symptomatically hypoglycemic overnight. Diaphoretic with a blood sugar of 55; given 2 apple juice and a turkey sandwich. Fingerstick then 75; given more food and juice and then fingerstick at 85
[2019-11-24 06:50] LABS: BUN Creatinine Ratio 23.5 (6-22); Blood Urea Nitrogen 16 mg/dL (7-17); Calcium 9.1 mg/dL (8.4-10.2); Carbon Dioxide 20 mmol/L (22-32); Chloride 114 mmol/L (98-107); Estimated Glomerular Filt Rate > 60.0 mL/min (>60); Glucose 130 mg/dL (70-100); HEMOLYSIS < 15 (0-50); Potassium 3.5 mmol/L (3.4-5.1); Sodium 141 mmol/L (137-145)
[2019-11-24 07:16] VITALS: BP 125/73; PULSE 94; RESP 16; TEMP 36.2; O2SAT 100
[2019-11-24] MEDS: DOCUSATE 100 MG CAPSULE PO (08:10)
[2019-11-24] MEDS: INSULIN DEGLUDEC 53 EACH SUBCUT (08:11)
[2019-11-24] MEDS: diphenhydrAMINE 50 MG/ML VIAL 25 MG IV (09:36)
[2019-11-24] MEDS: INSULIN ASPART 100 UNIT/ML INSULN PEN SUBCUT (09:36)
[2019-11-24] MEDS: NITROFURANTOIN ER 100 MG CAPSULE PO (09:36)
--- NOTE | 2019-11-24 10:26 | PM.DS.1 ---
History of Present Illness History of Present Illness Date Patient Seen: 11/24/19 Time Patient Seen: 10:26 Chief complaint: DKA Narrative: As per SHARYN Noguera: Ms. Sarabjit Jimenes is a 29-year-old female patient with a history significant for type 1 diabetes, migraines, irregular menstruation and frequent admissions for DKA who presents to the ER with complaints of generalized body aches fatigue and feeling unwell. The patient was just discharged from [facility] in the afternoon of 11/21/2019. The patient states that following discharge she went home took a shower and played video game prior to going to bed. She takes states she slept poorly and could not get comfortable related to body aches. She reports that she has been compliant with her medications using Humalog for sliding scale and 53 units of Tresiba daily at 11 am but did not take today's dose due to sleepiness. She states she established with a new ethnology teacher in [place] with subsequent increase in her Tresiba to 53 units daily. Her hemoglobin A1c has been greater than 14 since June of 2018. The patient denies any complaints of fevers or chills, rashes or lesions, urinary symptoms or vaginal discharge. She has a scalp wound that she had underwent recent debridement by Dr. Anderson and is followed at the wound clinic here. The patient plantar most recent admission on diarrhea following eating chicken that she felt was bad. She denies complaints of chest pain or palpitations, epigastric or abdominal pain pain, nausea or vomiting. She reports no further diarrhea and denies urinary symptoms. Upon arrival the patient is afebrile with temperature 98.5?, tachycardic at 145, blood pressure 155/99, respirations of 18 saturating 98% on room air. A chest x-ray is obtained which is unremarkable, CT the abdomen pelvis is obtained due to previous history of pyelonephritis, no renal abscess or calculi are identified, mild bilateral hydronephrosis with prominent bladder distension, right greater than left colonic obstipation. On laboratory analysis she has white count of 10.0 with mild elevation neutrophils at 82.2%, hemoglobin of 13.7 hematocrit of 43.0, platelets are 399. Sodium is 145 and potassium is 4.8, magnesium is 2.2 and phos is 5.2. BUN is 14 and creatinine is 0.88. Blood sugar upon arrival is 602. She does have an elevated alkaline phosphatase of 176 otherwise liver functions within normal range. Albumin is 4.7. On urinalysis she has 3+ ketones trace blood negative for protein, no nitrates, no leukocyte esterase, few bacteria. Procalcitonin is 0.09. VBG finds a pH of 7.01, bicarb of 2 and a base excess of -29. Serum test is negative. In the emergency department patient received normal saline 2 L and normal saline 200 cc/hour, IV insulin, insulin drip, blood cultures were obtained and GI panel ordered. A vaginal exam is completed however the patient is intolerant of the speculum and bimanual exam finds no cervical motion tenderness and vaginal cultures are obtained. Patient is admitted to the medicine service for recurrent diabetic ketoacidosis. Discharge Providers Provider Date of admission: 11/22/19 20:00 Discharge Date: 11/24/19 Consults: 11/22/19 19:54 Consult to Discharge Planning Routine Comment: Discharge provider: Julio Cesar Weinberg DO Summary Hospital Course Discharge Diagnosis: Please see hospital course by problem list noted below. Hospital Course: This is a 29-year-old female patient with frequent recurrent episodes of diabetic ketoacidosis admitted for the same. She improved with insulin infusion and was discharged home. 1. Acute diabetic ketoacidosis, in uncontrolled diabetes mellitus type 1, present on admission, active. 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 -Hemoglobin A1c >14% since June of 2018 indicative of poor glycemic control likely multifactorial. -Initial blood glucose 602, VBG pH 7.01, HC03 2, base excess -29. Anion gap was 26. Now HCO3 of 20 and closed anion gap. -chest x-ray is unremarkable, COVID-19 negative. Positive urine cultutre on admission but may be due to colonization, unclear if source of DKA. -patient was started on insulin drip in the emergency department and was ultimately stabilized after a rapid glucose drop. She was restarted on her home Tresiba once her anion gap had closed and her bicarb was above 15. After restarting her home Tresiba she did develop some mild hypoglycemia which resolved with oral intake. On future admissions, would not resume home dosing as she is likely eating more carbohydrates at home. During prior admission she has been well controlled on 45 units of Tresiba and would continue this instead if she returns. 2. Generalized myalgias, acute, present on admission, active -Patient reports she has diffuse body aching while experiencing DKA which responds to IV Dilaudid. -ordered Benadryl 25 mg IV as needed for itching 3. Neurogenic bladder secondary to autonomic nerve dysfunction secondary to diabetes, chronic, present on admission, stable -and CT find no source of infection however bilateral hydronephrosis present with prominent distention of bladder. -Urinalysis was borderline and grew sensitive E. coli and yeast. Will treat for acute cystitis with macrobid x 7 days. 4. Scalp wound status post debridement, present on admission, Stable. -wound is without drainage, no evidence of cellulitis, followed at the wound care clinic. 5. Acute cystitis, present on admission - patient with borderline UA, distension on CT scan. Urine culture grew E. coli and yeast. May be colonization but given recurrent DKA will treat with macrobid x7 days. Dispo: discharged home. Exam Vital Signs (past 8 hours): - 11/24/19 04:08 11/24/19 07:16 Temperature 97.5 F L 97.1 F L Pulse Rate 101 H 94 H Respiratory Rate 16 16 Blood Pressure 116/78 125/73 Pulse Oximetry 100 100 Oxygen Delivery Method Room Air Oxygen Flow Rate 0 Narrative Exam Narrative: GENERAL APPEARANCE: well developed, well nourished, in no acute distress. HEENT: Normocephalic, PERRLA, conjunctiva clear, EOMs intact without nystagmus, no sinus tenderness to percussion, no rhinorrhea, mucous membranes are now moist and pink without lesions or exudate. NECK/THYROID: neck supple, nontender trachea midline. LYMPH NODES: no cervical or supraclavicular lymphadenopathy. SKIN: [place], warm and dry, chronic scalp skin wound without drainage or erythema. HEART: RRR, S1-S2, no murmur, no rubs or gallops, brisk capillary refill, no edema LUNGS: clear to auscultation bilaterally, no coarseness crackles or wheezing, no cough present CHEST: Symmetrical movement, no accessory muscle use, good tidal volume. ABDOMEN: Soft, no distention, no abdominal tenderness, no guarding or peritoneal signs, no organomegaly, no flank or suprapubic tenderness, active bowel tones. BACK: Normal curvature, nontender to palpation, no CVA tenderness on percussion EXTREMITIES: moves all extremities, strength is 5/5 and symmetrical, no deformities or joint effusions. NEUROLOGIC: AAO x4, no focal neurologic deficits, cranial nerves II-XII grossly intact, sensation intact to light touch, hearing grossly normal to speech. PSYCH: Good judgment, good insight, linear thought process, cooperative, appropriate with stable behavior Objective Labs Result Diagrams: 11/22/19 15:24 11/24/19 06:30 Labs: Laboratory Results - last 24 hr 11/23/19 11/24/19 10:30 06:30 Sodium 141 141 Potassium 3.2 L 3.5 Chloride 117 H 114 H Carbon Dioxide 18 L 20 L BUN 13 16 Creatinine 0.56 0.68 Estimated GFR > 60.0 > 60.0 BUN/Creatinine Ratio 23.2 H 23.5 H Glucose 101 H 130 H Calcium 9.0 9.1 Discharge Plan Discharge Plan Patient Disposition: Home Discharge comment: You were admitted to the hospital with DKA. You were found to have a urinary tract infection. Please complete the prescribed week of antibiotics and follow up with your ethnology teacher as previously scheduled. To help expedite your insulin pump you can call [employer] at to speak with a publications sales representative. Discharge orders & Medications Prescriptions: New nitrofurantoin macrocrystal 100 mg capsule 100 mg PO BID 7 Days Qty: 14 RF: 0 Continued glucose 4 gram tablet,chewable 4 gram PO Q15M PRN (Reason: hypoglycemia) Qty: 30 RF: 0 Glucagon Emergency Kit (human) 1 mg recon soln 1 mg subcut DIRECTED RF: 0 insulin aspart U-100 [Novolog Flexpen U-100 Insulin] 100 unit/mL (3 mL) Insulin Pen 7 unit SUBCUT AC Qty: 30 RF: 0 hydroxyzine pamoate [Vistaril] 50 mg capsule 50 mg PO QID PRN (Reason: itching) 30 Days Qty: 20 RF: 0 insulin degludec 200 unit/mL (3 mL) Insulin Pen 53 unit SUBCUT DAILY RF: 0 Discharge Health Status Health Concerns: type I diabetes with DKA Diet/Activity/Treatments Diet: Diet as Tolerated and Carb-consistent/Diabetic Activity: As tolerated Visit Report/Discharge Packet Instructions: Taking Care of Your Diabetes When You Are Sick, Nitrofurantoin Visit Report Forms: Patient Portal/API, Stroke Signs & Symptoms Discharges patient from system. Discharge Date/Time: 11/24/19 13:25 Quality VTE Deep Vein Thrombosis/Pulmonary Embolism Present on Admission: No
--- NOTE | 2019-11-24 11:10 | CM.DPC ---
DCP: continued: Met with pt during Team Bedside Rounds and then just now as the d/c to home order has been put in place. Pt confirms her PCP varies: [facility]. She lives in her grandmother's home in [place]. Her mother Argelia will be picking her up today. Clinic followup planned.
--- NOTE | 2019-11-24 12:45 | PC.NURSE ---
Addendum entered by Federico Portillo R.N. 11/24/19 13:34: Pt dressed herself. Gathered all belongings and tresiba. Sent with pt/mom. Pt was escorted via w/c to POV in no distress for d/c home at 1325. Original Note: pt reports pain 7/10 to head wound. Dsg change performed ~1000. Wound bed has some healthy granulation tissue. Minimal scant drainage on dsg- possibly just old wound gel. Wound edges are non erythemic. Post dsg change, pt was able to sleep. Reports pain is coming back around 1215. Declines tylenol. That won't work. Called to Dr. Weinberg and reported pt reports pain, declines tylenol. Dr. Weinberg states ok to give dilaudid. Also reported BG 69. Dr. Weinberg instructed to hold mealtime insulin. Reviewed d/c paperwork- educational materials reviewed. Pt states she has taken this abx before and tolerated well. She states that she has an appt with her vp global marketing solutions on 12/06. She states she will call her vp global marketing solutions re dose adjustment for tresiba (pt feels that she may need to go back to 50 units daily). She verbalizes understanding of dc instructions, need for f/u, rx electronically sent to pharmacy. Removed PIV with cath tip intact. She is awaiting her mom to come pick her up.
== END 2019-11-24 13:25 | disposition home or self-care (01) | DRG 638 ==
LOC: ED 18:46 → AC 20:01 → ICU 11-23 10:49 → AC 11-23 14:04
PROVIDERS: Internal Medicine; Admitting Provider Nurse Practitioner Adult Health; Emergency Provider Nurse Practitioner Family; Referring Provider Nurse Practitioner Family; Visit Provider Nurse Practitioner Adult Health
DX: E10.10 Type 1 diabetes mellitus with ketoacidosis without coma (principal); N30.00 Acute cystitis without hematuria; N31.9 Neuromuscular dysfunction of bladder, unspecified; E10.43 Type 1 diabetes mellitus with diabetic autonomic (poly)neuropathy; M79.10 Myalgia, unspecified site; S01.00XD Unspecified open wound of scalp, subsequent encounter; Z11.59 Encounter for screening for other viral diseases
CPT/HCPCS: 36415; 51798; 71045; 74178; 80048; 80053; 81003; 81015; 81025; 82009; 82805; 82962; 83605; 83735; 84100; 84145; 84703; 85025; 86140; 87040; 87070; 87077; 87086; 87186; 87205; 87635; 87797; 93005; 94762; 96361; 96365; 96367; 96375; 99284; J1170; J1200; J2405; J2930; J7050; Q9967

== ENCOUNTER → 2019-11-25 14:36 | Outpatient (CLI) | payer OTHER, MEDICAID, SELFPAY ==
[2019-11-22 20:39] VITALS: BMI 17.0
== END ==
PROVIDERS: PCP Surgery; Referring Provider Surgery; Visit Provider Family Medicine
DX: S01.00XA Unspecified open wound of scalp, initial encounter (principal); E10.65 Type 1 diabetes mellitus with hyperglycemia
CPT/HCPCS: 11042

== ENCOUNTER → 2019-12-02 14:54 | Outpatient (CLI) | payer OTHER, MEDICAID, SELFPAY ==
[2019-11-22 20:39] VITALS: BMI 17.0
== END ==
PROVIDERS: PCP Surgery; Referring Provider Surgery; Visit Provider Family Medicine
DX: S01.00XA Unspecified open wound of scalp, initial encounter (principal); E10.65 Type 1 diabetes mellitus with hyperglycemia
CPT/HCPCS: 97597

== ENCOUNTER → 2019-12-09 15:39 | Outpatient (CLI) | payer OTHER, MEDICAID, SELFPAY ==
[2019-11-22 20:39] VITALS: BMI 17.0
== END ==
PROVIDERS: PCP Surgery; Referring Provider Surgery; Visit Provider Family Medicine
DX: S01.00XA Unspecified open wound of scalp, initial encounter (principal); E10.65 Type 1 diabetes mellitus with hyperglycemia
CPT/HCPCS: 11042

== ENCOUNTER 2019-12-11 16:44 | Emergency (ER) | payer OTHER, MEDICAID, SELFPAY ==
[2019-11-22 20:39] VITALS: BMI 17.0
[2019-12-11 16:51] VITALS: BP 137/85; PULSE 117; RESP 22; TEMP 36.7; O2SAT 100; BMI 18.8
[2019-12-11 17:46] LABS: pH VBG 7.52 (7.33-7.43)
[2019-12-11 17:47] LABS: HCO3 VBG 27 mmol/L (23-28); Oxygen Saturation VBG 87 % (70-75); PCO2 VBG 32.6 mmHg (45-50); PO2 VBG 47 mmHg (35-45); Total CO2 VBG 28 mmol/L (24-29)
[2019-12-11 17:49] LABS: Add Manual Diff / Slide Review NO; Basophils Absolute Auto 100 /uL (0-100); Basophils Percent Auto 1.2 % (0-2); Eosinophils Absolute Auto 0 /uL (0-450); Eosinophils Percent Auto 0.9 % (2-4); Hematocrit 39.3 % (36-46); Hemoglobin 13.5 g/dL (12.0-16.0); Lymphocytes Absolute Auto 1500 /uL (1100-4500); Lymphocytes Percent Auto 31.4 % (25-40); Mean Corpuscular HGB Conc 34.4 % (30-36); Mean Corpuscular Hemoglobin 33.1 PG (26-34); Mean Corpuscular Volume 96.2 fL (80-100); Monocytes Absolute Auto 400 /uL (0-900); Monocytes Percent Auto 8.6 % (3-14); Neutrophils Absolute Auto 2700 /uL (1500-7000); Neutrophils Percent Auto 57.9 % (50-75); Platelet Count 310 X10^3/uL (150-400); Red Blood Cell Count 4.09 X10^6/uL (4.0-5.2); Red Cell Distribution Width 12.9 % (11.6-14.8); White Blood Cell Count 4.7 X10^3/uL (4.5-11.0)
--- NOTE | 2019-12-11 18:04 | DI.CT.S_ITS ---
PROCEDURE: CT ABDOMEN PELVIS W CON INDICATIONS: right abd pain TECHNIQUE: After the administration of intravenous contrast, 5 mm thick sections acquired from the diaphragm to the symphysis. 5 mm coronal and sagittal reformats were acquired. For radiation dose reduction, the following was used: automated exposure control, adjustment of mA and/or kV according to patient size. COMPARISON: [facility], CT, CT ABDOMEN PELVIS W CON, 03/15/2019, 22:08. FINDINGS: Image quality: Excellent. ABDOMEN: Lung bases: Lung bases are clear. Heart size is normal. Solid organs: Liver is normal in size and enhancement. Gallbladder is within normal limits . Biliary system is non dilated. Pancreas enhances normally. Spleen is normal in size and enhancement. No adrenal nodules. Right greater than left multifocal renal scarring is present. Kidneys demonstrate otherwise normal size and enhancement, without hydronephrosis. Peritoneum and bowel: Limited evaluation secondary to lack of oral contrast. Appendix not seen. No evidence of appendicitis. Bowel loops demonstrate normal wall thickness and caliber. Fluid filled small bowel loops within the left hemiabdomen. No pneumoperitoneum. Trace free fluid within the pelvis. Nodes and vessels: No retroperitoneal or mesenteric adenopathy by size criteria. Mildly prominent mesenteric lymph nodes measuring less than 10 mm short axis. Aorta and inferior vena cava are normal in size. Miscellaneous: No ventral hernias. PELVIS: Genitourinary: Bladder wall thickness is normal. Miscellaneous: No inguinal hernias or adenopathy. Bones: No suspicious bony lesions. No vertebral body compression fractures. IMPRESSION: 1. Findings suggestive of mesenteric adenitis in the appropriate clinical setting. 2. Appendix not seen. No evidence of appendicitis. 3. Trace free fluid in the pelvis, within physiological limits in a menstruating female. Dictated by: Nataly Ozuna M.D. on 12/11/2019 at 19:00 Approved by: Nataly Ozuna M.D. on 12/11/2019 at 19:02
[2019-12-11 18:08] LABS: Pregnancy Test Serum,Qual Negative (Negative)
[2019-12-11 18:09] LABS: Alanine Aminotransferase 22 IU/L (<35); Albumin Globulin Ratio 1.4 (1.0-2.8); Alkaline Phosphatase 304 U/L (38-126); Aspartate Aminotransferase 27 IU/L (14-36); BUN Creatinine Ratio 37.5 (6-22); Bilirubin Total 0.7 mg/dL (0.2-1.3); Blood Urea Nitrogen 21 mg/dL (7-17); Calcium 8.8 mg/dL (8.4-10.2); Carbon Dioxide 23 mmol/L (22-32); Chloride 93 mmol/L (98-107); Estimated Glomerular Filt Rate > 60.0 mL/min (>60); Globulin 2.8 g/dL (1.7-4.1); Lipase 332 U/L (23-300); Potassium 4.4 mmol/L (3.4-5.1); Sodium 128 mmol/L (137-145); Total Protein 6.8 g/dL (6.3-8.2)
[2019-12-11 18:10] LABS: Lactate (Lactic Acid) 1.1 mmol/L (0.7-2.1); Magnesium 1.9 mg/dL (1.6-2.3); Phosphorous 4.4 mg/dL (2.5-4.5)
[2019-12-11 18:16] LABS: HEMOLYSIS 46 (0-50)
[2019-12-11 18:18] LABS: Glucose 720 mg/dL (70-100)
[2019-12-11] MEDS: SODIUM CHLORIDE 0.9% 1,000 ML 1000 ML IV ×2 (18:22→19:29)
[2019-12-11] MEDS: diphenhydrAMINE 50 MG/ML VIAL 25 MG IV (18:22)
[2019-12-11] MEDS: methylPREDNISolone 125 MG/2 ML VIAL IV (18:22)
[2019-12-11] MEDS: HYDROMORPHONE 1 MG INJ IV (18:22)
[2019-12-11 19:09] LABS: Bacteria Urine Few (2-10); Culture Indicated Urine Specimen Cultured; RBC Urine 0-1/HPF (0-5/HPF); Squamous Epithelial Cell Urine 1-5 /HPF (0-5/HPF); Transitional Epi Cells Urine 1-5/HPF (0-5/HPF); WBC Urine 10-30/HPF (0-5/HPF)
[2019-12-11] MEDS: HYDROMORPHONE 0.5 MG INJ IV ×2 (19:16→21:14)
[2019-12-11] MEDS: KETOROLAC 60 MG/2 ML VIAL 15 MG IV (19:29)
[2019-12-11] MEDS: INSULIN REGULAR 100 UNIT/ML 3 ML VIAL 10 UNIT SUBCUT (19:32)
[2019-12-11 19:39] VITALS: PULSE 88; RESP 12; O2SAT 96
[2019-12-11] MEDS: CEFTRIAXONE 1 GM/50 ML FROZ.PIGGY IV (19:41)
[2019-12-11 20:00] VITALS: BP 140/89; PULSE 92; RESP 12; O2SAT 95
--- NOTE | 2019-12-11 20:03 | ED.ABDPAIN ---
HPI - Abdominal Pain <SHARYN Walters - Last Filed: 12/12/19 01:40> General Chief Complaint: Abdominal Pain Stated Complaint: sharp pain lwr right side abdomen Time Seen by Provider: 12/11/19 17:05 Source: patient Mode of arrival: Ambulatory Limitations: no limitations History of Present Illness HPI narrative: This is a 29 year female, nonsmoker, who has history of type 1 diabetes with multiple admission to hospital with DKA presents to ED with chief complain of right lower quadrant pain and small lump she felt since 830 am this morning. Patient denies fever, chills, nausea or vomiting. Reports pain increases with movement and when it is touched and nothing relieves pain. Patient reports 8/10 constant sharp pain with intermittently increasing sharp pain. Patient denies urinary symptoms. She reports had not had menstruation for last 1 year and it has been always irregular prior to this. Patient had history of ovarian cyst. She is sexually active but is not using control methods since she was told can't get with a history of type 1 diabetes. She denies recent cough and reports scalp wound has been healing well and now requires once a week follow-up appointment with dressing changes wound care. Patient reports blood glucose been slightly elevated and couldn't keep below 300 mg/dL today. She had eaten once today but had used long acting insulin Degludec this morning. Patient reports had completed nitrofurantoin last week for UTI. Related Data Home Medications Medication Instructions Recorded Confirmed Glucagon Emergency Kit (human) 1 mg SUBCUT DIRECTED 02/16/19 11/22/19 insulin degludec 53 unit SUBCUT DAILY 11/21/19 11/22/19 Previous Rx's Medication Instructions Recorded glucose 4 gram PO Q15M PRN #30 tab 12/12/18 insulin aspart U-100 [Novolog 7 unit SUBCUT AC #30 ml 10/30/19 Flexpen U-100 Insulin] cephalexin [Keflex] 500 mg PO Q6H 7 Days #28 cap 12/11/19 hydrocodone-acetaminophen [[place]] 1 tab PO TID PRN #7 tab 12/11/19 Allergies Allergy/AdvReac Type Severity Reaction Status Date / Time abdalla [ABDALLA] Allergy Intermediate Hives, Verified 12/11/19 16:55 pruritus iodine [IODINE] Allergy Intermediate rash, itchy Verified 12/11/19 16:55 morphine Allergy Intermediate Difficulty Verified 12/11/19 16:55 Breathing shellfish derived Allergy Intermediate rash Verified 12/11/19 16:55 [SHELLFISH DERIVED] adhesive [ADHESIVE] Allergy Unknown tape Verified 12/11/19 16:55 latex [LATEX] Allergy Unknown Hives Verified 12/11/19 16:55 Review of Systems <SHARYN Walters - Last Filed: 12/12/19 01:40> Review of Systems Narrative: General: Denies fever, chills, fatigue, malaise, sweats. HEENT: Denies sinus pain, ear pain, sore throat, difficulty swallowing, dizziness. Respiratory: Denies dyspnea, cough, wheezing, hemoptysis, sputum. Cardiovascular: Denies chest pain, palpitations, orthopnea, edema. Gastrointestinal: See HPI : Denies dysuria, frequency, incontinence, hematuria, urinary retention. Musculoskeletal: Denies weakness, joint pain or bony pain. Skin: Denies rash, skin lesions, or other. Neurologic: Denies weakness, headache, numbness, change in speech, confusion, seizures, incoordination. Psychiatric: No concerning psychosocial issues. 12-point review of systems is negative except for those stated above. Patient History <SHARYN Walters - Last Filed: 12/12/19 01:40> Medical History DKA (diabetic ketoacidoses) (Resolved) History of pyelonephritis (Resolved) Irregular menstrual cycle (Acute) Migraine headache (Chronic) Nephrolithiasis (Resolved) Type 1 diabetes mellitus (Chronic) Surgical History History of ureter stent (Resolved) Hx of local excision of skin lesion (Acute) Status post laser lithotripsy of ureteral calculus (Acute) [place] teeth extracted (Acute) Family History Father In good health Mother Cardiac disease Social History details: Engaged household members: significant other and family Smoking Status: Never smoker alcohol intake: current Smoking Status: Never smoker alcohol intake frequency: 0-2 drinks per day Substance Use Type: does not use Exam <Tang SHARYN Dominguez - Last Filed: 12/12/19 01:40> Narrative Exam Narrative: GEN: Alert, oriented x 3, thin appearing and in moderate distress from pain. Head: Normal cephalic, atraumatic. Top of scalp lesion covered with Band-Aid. No temporal tenderness, palpable mass or rash. EYES: Pupils are equal, round, and reactive to light and accommodation. Extraocular muscles are intact bilaterally. There is no subconjunctival hemorrhage, exudate and sclera non-icteric. ENT: Hearing grossly intact. Nose without bleeding, purulent discharge or deviation. Facial sinuses nontender to palpate. Mucous membrane dry, no mucosal lesion. Throat without erythema, tonsillar hypertrophy or exudate. Uvula in midline, airway patent. Neck: Trachea in midline. No JVD, non-tender without lymphadenopathy. No masses or thyroid megaly. Supple, non-tender and no meningeal signs. CARDIAC: Normal tachy rate and rhythm without murmurs, gallops, or rubs. No chest wall tenderness. No peripheral edema, cyanosis or pallor. Capillary refill is less than 2 seconds. RESPIRATORY: Lungs are clear to auscultate bilaterally. No cough, wheezes, rales, or rhonchi. No stridor, respiratory distress, increase work of breathing, or accessary muscle used. ABD: Abdomen soft, exquisitely tender to palpate in right quadrant. Small . Positive for rebound tenderness. Bowel sounds are normal in all 4 quadrants. A small palpable masses on right mid-lower abdomen. No organomegaly. EXT: Full painless ROM of all extremities with no loss of sensation, strength, effusion or edema. SKIN: Warm, dry, and pale. No erythema, lesions or rash over visible areas. BACK: Nontender without deformity or crepitance. No flank tenderness. NEUROLOGICAL: Alert and oriented to place, time and person. Sensation and motor function intact bilaterally. No facial droops, dysphasia. Initial Vital Signs Initial Vital Signs: Vital Signs Temperature 98.1 F 12/11/19 16:51 Pulse Rate 117 H 12/11/19 16:51 Respiratory Rate 22 12/11/19 16:51 Blood Pressure 137/85 12/11/19 16:51 Pulse Oximetry 100 12/11/19 16:51 Psych Appearance: well kempt Mental Status: mental status grossly normal Speech and Movement: speech and movement normal Mood: anxious mood Affect: irritable affect Attitude: cooperative Thought Process: normal Thought Content: normal Judgment: judgment good <Megan Luevano DO - Last Filed: 12/12/19 07:12> Initial Vital Signs Initial Vital Signs: Vital Signs Temperature 98.1 F 12/11/19 16:51 Pulse Rate 117 H 12/11/19 16:51 Respiratory Rate 22 12/11/19 16:51 Blood Pressure 137/85 12/11/19 16:51 Pulse Oximetry 100 12/11/19 16:51 Scores <SHARYN Walters - Last Filed: 12/12/19 01:40> GCS Alex coma scale eye opening: Spontaneous Alex coma scale verbal response: Orientated Maurice coma scale motor response: Obey commands Alex coma scale total score: 15 qSOFA Altered Mental Status (GCS <15): No Respiratory rate greater than/equal to 22: Yes Systolic blood pressure less than or equal to 100: No qSOFA Total: 1 0-1 Not High Risk 1-3 High risk Course <SHARYN Walters - Last Filed: 12/12/19 01:40> Orders Ordered: Discontinued Medications Diphenhydramine HCl (Benadryl) 25 mg IV NOW ONE Stop: 12/11/19 18:05 Last Admin: 12/11/19 18:22 Dose: 25 mg Documented by: SCOTTY Fluconazole (Diflucan) 100 mg PO NOW ONE Stop: 12/11/19 20:04 Last Admin: 12/11/19 20:18 Dose: 100 mg Documented by: SCOTTY Hydromorphone HCl (Dilaudid) 1 mg IV NOW ONE Stop: 12/11/19 18:05 Last Admin: 12/11/19 18:22 Dose: 1 mg Documented by: MAGDALENAN Hydromorphone HCl (Dilaudid) 0.5 mg IV NOW ONE Stop: 12/11/19 18:55 Last Admin: 12/11/19 19:16 Dose: 0.5 mg Documented by: MAGDALENAN Hydromorphone HCl (Dilaudid) 0.5 mg IV NOW ONE Stop: 12/11/19 21:10 Last Admin: 12/11/19 21:14 Dose: 0.5 mg Documented by: SCOTTY Sodium Chloride (Normal Saline 0.9%) 1,000 mls @ 150 mls/hr IV CONT BLAISE Last Admin: 12/11/19 19:53 Dose: Not Given Documented by: SCOTTY Sodium Chloride (Normal Saline 0.9%) 1,000 mls @ 1,000 mls/hr IV BOLUS ONE Stop: 12/11/19 18:08 Last Infusion: 12/11/19 19:38 Dose: 0 mls/hr Documented by: Admin: 12/11/19 18:22 Dose: 1,000 mls/hr Documented by: SCOTTY Sodium Chloride (Normal Saline 0.9%) 1,000 mls @ 1,000 mls/hr IV BOLUS ONE Stop: 12/11/19 20:21 Last Infusion: 12/11/19 20:59 Dose: 0 mls/hr Documented by: Admin: 12/11/19 19:29 Dose: 1,000 mls/hr Documented by: SCOTTY Ceftriaxone Sodium/Dextrose (Rocephin) 1 gm in 50 mls @ 100 mls/hr IV NOW ONE Stop: 12/11/19 19:57 Last Infusion: 12/11/19 20:14 Dose: 0 mls/hr Documented by: Admin: 12/11/19 19:41 Dose: 100 mls/hr Documented by: SCOTTY Insulin Human Regular (Humulin R) 10 unit SUBCUT NOW ONE Stop: 12/11/19 19:23 Last Admin: 12/11/19 19:32 Dose: 10 unit Documented by: SCOTTY Cosigned by: SAMI Ketorolac Tromethamine (Toradol) 15 mg IV NOW ONE Stop: 12/11/19 19:23 Last Admin: 12/11/19 19:29 Dose: 15 mg Documented by: SCOTTY Methylprednisolone (Solu-Medrol 125 Mg Vial) 125 mg IV NOW ONE Stop: 12/11/19 18:05 Last Admin: 12/11/19 18:22 Dose: 125 mg Documented by: SCOTTY Vital Signs Vital signs: Vital Signs - 8 hr 12/11/19 19:39 12/11/19 20:00 12/11/19 20:30 Pulse Rate 88 92 H 93 H Respiratory Rate 12 12 11 L Blood Pressure 140/89 131/86 Pulse Oximetry 96 95 96 12/11/19 21:00 12/11/19 21:44 Pulse Rate 97 H 102 H Respiratory Rate 13 17 Blood Pressure 136/89 128/84 Pulse Oximetry 96 96 <Megan Luevano, DO - Last Filed: 12/12/19 07:12> Orders Ordered: Discontinued Medications Diphenhydramine HCl (Benadryl) 25 mg IV NOW ONE Stop: 12/11/19 18:05 Last Admin: 12/11/19 18:22 Dose: 25 mg Documented by: SCOTTY Fluconazole (Diflucan) 100 mg PO NOW ONE Stop: 12/11/19 20:04 Last Admin: 12/11/19 20:18 Dose: 100 mg Documented by: SCOTTY Hydromorphone HCl (Dilaudid) 1 mg IV NOW ONE Stop: 12/11/19 18:05 Last Admin: 12/11/19 18:22 Dose: 1 mg Documented by: SCOTTY Hydromorphone HCl (Dilaudid) 0.5 mg IV NOW ONE Stop: 12/11/19 18:55 Last Admin: 12/11/19 19:16 Dose: 0.5 mg Documented by: SCOTTY Hydromorphone HCl (Dilaudid) 0.5 mg IV NOW ONE Stop: 12/11/19 21:10 Last Admin: 12/11/19 21:14 Dose: 0.5 mg Documented by: SCOTTY Sodium Chloride (Normal Saline 0.9%) 1,000 mls @ 150 mls/hr IV CONT BLAISE Last Admin: 12/11/19 19:53 Dose: Not Given Documented by: SCOTTY Sodium Chloride (Normal Saline 0.9%) 1,000 mls @ 1,000 mls/hr IV BOLUS ONE Stop: 12/11/19 18:08 Last Infusion: 12/11/19 19:38 Dose: 0 mls/hr Documented by: Admin: 12/11/19 18:22 Dose: 1,000 mls/hr Documented by: SCOTTY Sodium Chloride (Normal Saline 0.9%) 1,000 mls @ 1,000 mls/hr IV BOLUS ONE Stop: 12/11/19 20:21 Last Infusion: 12/11/19 20:59 Dose: 0 mls/hr Documented by: Admin: 12/11/19 19:29 Dose: 1,000 mls/hr Documented by: SCOTTY Ceftriaxone Sodium/Dextrose (Rocephin) 1 gm in 50 mls @ 100 mls/hr IV NOW ONE Stop: 12/11/19 19:57 Last Infusion: 12/11/19 20:14 Dose: 0 mls/hr Documented by: Admin: 12/11/19 19:41 Dose: 100 mls/hr Documented by: SCOTTY Insulin Human Regular (Humulin R) 10 unit SUBCUT NOW ONE Stop: 12/11/19 19:23 Last Admin: 12/11/19 19:32 Dose: 10 unit Documented by: SCOTTY Cosigned by: SAMI Ketorolac Tromethamine (Toradol) 15 mg IV NOW ONE Stop: 12/11/19 19:23 Last Admin: 12/11/19 19:29 Dose: 15 mg Documented by: SCOTTY Methylprednisolone (Solu-Medrol 125 Mg Vial) 125 mg IV NOW ONE Stop: 12/11/19 18:05 Last Admin: 12/11/19 18:22 Dose: 125 mg Documented by: SCOTTY Vital Signs Vital signs: Vital Signs - 8 hr 12/11/19 19:39 12/11/19 20:00 12/11/19 20:30 Pulse Rate 88 92 H 93 H Respiratory Rate 12 12 11 L Blood Pressure 140/89 131/86 Pulse Oximetry 96 95 96 12/11/19 21:00 12/11/19 21:44 Pulse Rate 97 H 102 H Respiratory Rate 13 17 Blood Pressure 136/89 128/84 Pulse Oximetry 96 96 MDM - Abdominal Pain <SHARYN Walters - Last Filed: 12/12/19 01:40> Differential Diagnosis Differential diagnosis: Likely abdominal pain, acute appendicitis and other (Ruptured ovarian cyst, ectopic , UTI) Medical Records Attestation: I reviewed the patient's medical records. Lab Data Attestation: I reviewed the patient's lab results. Result diagrams: 12/11/19 17:41 12/11/19 17:41 Labs: Lab Results 12/11/19 12/11/19 12/11/19 Range/Units 17:41 17:41 17:41 WBC 4.7 (4.5-11.0) X10^3/uL RBC 4.09 (4.0-5.2) X10^6/uL Hgb 13.5 (12.0-16.0) g/dL Hct 39.3 (36-46) % MCV 96.2 (80-100) fL MCH 33.1 (26-34) PG MCHC 34.4 (30-36) % RDW 12.9 (11.6-14.8) % Plt Count 310 (150-400) X10^3/uL Neut % (Auto) 57.9 (50-75) % Lymph % (Auto) 31.4 (25-40) % Harding % (Auto) 8.6 (3-14) % Eos % (Auto) 0.9 L (2-4) % Baso % (Auto) 1.2 (0-2) % Neut # (Auto) 2700 (9710-5329) /uL Lymph # (Auto) 1500 (5076-8304) /uL Harding # (Auto) 400 (0-900) /uL Eos # (Auto) 0 (0-450) /uL Baso # (Auto) 100 (0-100) /uL VBG pH (7.33-7.43) VBG pCO2 (45-50) mmHg VBG pO2 (35-45) mmHg VBG HCO3 (23-28) mmol/L VBG Total CO2 (24-29) mmol/L VBG O2 Saturation (70-75) % VBG Base Excess (0-4) mmol/L Sodium 128 L (137-145) mmol/L Potassium 4.4 (3.4-5.1) mmol/L Chloride 93 L (98-107) mmol/L Carbon Dioxide 23 (22-32) mmol/L BUN 21 H (7-17) mg/dL Creatinine 0.56 (0.52-1.04) mg/dL Estimated GFR > 60.0 (>60) mL/min BUN/Creatinine Ratio 37.5 H (6-22) Glucose 720 H* (70-100) mg/dL Lactate 1.1 (0.7-2.1) mmol/L Calcium 8.8 (8.4-10.2) mg/dL Phosphorus (2.5-4.5) mg/dL Magnesium (1.6-2.3) mg/dL Total Bilirubin 0.7 (0.2-1.3) mg/dL AST 27 (14-36) IU/L ALT 22 (<35) IU/L Alkaline Phosphatase 304 H (38-126) U/L Total Protein 6.8 (6.3-8.2) g/dL Albumin 4.0 (3.5-5.0) g/dL Globulin 2.8 (1.7-4.1) g/dL Albumin/Globulin Ratio 1.4 (1.0-2.8) Lipase 332 H (23-300) U/L Serum , Qual (Negative) Urine RBC (0-5/HPF) Urine WBC (0-5/HPF) Ur Squamous Epith Cells (0-5/HPF) Ur Transition Epith Cell (0-5/HPF) Urine Bacteria (None) Urine Yeast (None) Ur Culture Indicated? 12/11/19 12/11/19 12/11/19 Range/Units 17:41 17:41 17:45 WBC (4.5-11.0) X10^3/uL RBC (4.0-5.2) X10^6/uL Hgb (12.0-16.0) g/dL Hct (36-46) % MCV (80-100) fL MCH (26-34) PG MCHC (30-36) % RDW (11.6-14.8) % Plt Count (150-400) X10^3/uL Neut % (Auto) (50-75) % Lymph % (Auto) (25-40) % Harding % (Auto) (3-14) % Eos % (Auto) (2-4) % Baso % (Auto) (0-2) % Neut # (Auto) (3047-9116) /uL Lymph # (Auto) (9908-2716) /uL Harding # (Auto) (0-900) /uL Eos # (Auto) (0-450) /uL Baso # (Auto) (0-100) /uL VBG pH 7.52 H (7.33-7.43) VBG pCO2 32.6 L (45-50) mmHg VBG pO2 47 H (35-45) mmHg VBG HCO3 27 (23-28) mmol/L VBG Total CO2 28 (24-29) mmol/L VBG O2 Saturation 87 H (70-75) % VBG Base Excess 4.0 (0-4) mmol/L Sodium (137-145) mmol/L Potassium (3.4-5.1) mmol/L Chloride (98-107) mmol/L Carbon Dioxide (22-32) mmol/L BUN (7-17) mg/dL Creatinine (0.52-1.04) mg/dL Estimated GFR (>60) mL/min BUN/Creatinine Ratio (6-22) Glucose (70-100) mg/dL Lactate (0.7-2.1) mmol/L Calcium (8.4-10.2) mg/dL Phosphorus 4.4 (2.5-4.5) mg/dL Magnesium 1.9 (1.6-2.3) mg/dL Total Bilirubin (0.2-1.3) mg/dL AST (14-36) IU/L ALT (<35) IU/L Alkaline Phosphatase (38-126) U/L Total Protein (6.3-8.2) g/dL Albumin (3.5-5.0) g/dL Globulin (1.7-4.1) g/dL Albumin/Globulin Ratio (1.0-2.8) Lipase (23-300) U/L Serum , Qual Negative (Negative) Urine RBC (0-5/HPF) Urine WBC (0-5/HPF) Ur Squamous Epith Cells (0-5/HPF) Ur Transition Epith Cell (0-5/HPF) Urine Bacteria (None) Urine Yeast (None) Ur Culture Indicated? 12/11/19 Range/Units 18:37 WBC (4.5-11.0) X10^3/uL RBC (4.0-5.2) X10^6/uL Hgb (12.0-16.0) g/dL Hct (36-46) % MCV (80-100) fL MCH (26-34) PG MCHC (30-36) % RDW (11.6-14.8) % Plt Count (150-400) X10^3/uL Neut % (Auto) (50-75) % Lymph % (Auto) (25-40) % Harding % (Auto) (3-14) % Eos % (Auto) (2-4) % Baso % (Auto) (0-2) % Neut # (Auto) (4074-8248) /uL Lymph # (Auto) (9813-8974) /uL Harding # (Auto) (0-900) /uL Eos # (Auto) (0-450) /uL Baso # (Auto) (0-100) /uL VBG pH (7.33-7.43) VBG pCO2 (45-50) mmHg VBG pO2 (35-45) mmHg VBG HCO3 (23-28) mmol/L VBG Total CO2 (24-29) mmol/L VBG O2 Saturation (70-75) % VBG Base Excess (0-4) mmol/L Sodium (137-145) mmol/L Potassium (3.4-5.1) mmol/L Chloride (98-107) mmol/L Carbon Dioxide (22-32) mmol/L BUN (7-17) mg/dL Creatinine (0.52-1.04) mg/dL Estimated GFR (>60) mL/min BUN/Creatinine Ratio (6-22) Glucose (70-100) mg/dL Lactate (0.7-2.1) mmol/L Calcium (8.4-10.2) mg/dL Phosphorus (2.5-4.5) mg/dL Magnesium (1.6-2.3) mg/dL Total Bilirubin (0.2-1.3) mg/dL AST (14-36) IU/L ALT (<35) IU/L Alkaline Phosphatase (38-126) U/L Total Protein (6.3-8.2) g/dL Albumin (3.5-5.0) g/dL Globulin (1.7-4.1) g/dL Albumin/Globulin Ratio (1.0-2.8) Lipase (23-300) U/L Serum , Qual (Negative) Urine RBC 0-1/hpf (0-5/HPF) Urine WBC 10-30/hpf H (0-5/HPF) Ur Squamous Epith Cells 1-5 /hpf (0-5/HPF) Ur Transition Epith Cell 1-5/hpf (0-5/HPF) Urine Bacteria Few (2-10) H (None) Urine Yeast 5-10/hpf H (None) Ur Culture Indicated? Specimen cultured Point of care testing: Point of Care Testing Glucose POC 432 Urine Dip Bedside Urine Glucose 1000 mg/dl Bedside Urine Bilirubin - Negative Bedside Urine Ketone + 15 Urine Specific Nettie 1.005 Bedside Urine Occult Blood +/- Bedside Urine pH 8.0 Bedside Urine Protein +/- 15 Bedside Urine Urobilinogen - Negative Bedside Urine Nitrite - Negative Bedside Urine Leukocytes + [address] scan - abdomen/pelvis: Radiologist's Impression: [address] [address] [address] Scan Report Signed Patient: Sarabjit Jimenes MMR#: [id number] : 1990Acct:[id number] Age/Sex: 29 / FDate of Service: 12/11/19 Loc: ED Accession Number: [id number] Procedure: CT abdomen pelvis w con Ordering Provider: Tang Dominguez PROCEDURE: CT ABDOMEN PELVIS W CON INDICATIONS: right abd pain TECHNIQUE: After the administration of intravenous contrast, 5 mm thick sections acquired from the diaphragm to the symphysis. 5 mm coronal and sagittal reformats were acquired. For radiation dose reduction, the following was used: automated exposure control, adjustment of mA and/or kV according to patient size. COMPARISON: [facility], CT, CT ABDOMEN PELVIS W CON, 03/15/2019, 22:08. FINDINGS: Image quality: Excellent. ABDOMEN: Lung bases: Lung bases are clear. Heart size is normal. Solid organs: Liver is normal in size and enhancement. Gallbladder is within normal limits . Biliary system is non dilated. Pancreas enhances normally. Spleen is normal in size and enhancement. No adrenal nodules. Right greater than left multifocal renal scarring is present. Kidneys demonstrate otherwise normal size and enhancement, without hydronephrosis. Peritoneum and bowel: Limited evaluation secondary to lack of oral contrast. Appendix not seen. No evidence of appendicitis. Bowel loops demonstrate normal wall thickness and caliber. Fluid filled small bowel loops within the left hemiabdomen. No pneumoperitoneum. Trace free fluid within the pelvis. Nodes and vessels: No retroperitoneal or mesenteric adenopathy by size criteria. Mildly prominent mesenteric lymph nodes measuring less than 10 mm short axis. Aorta and inferior vena cava are normal in size. Miscellaneous: No ventral hernias. PELVIS: Genitourinary: Bladder wall thickness is normal. Miscellaneous: No inguinal hernias or adenopathy. Bones: No suspicious bony lesions. No vertebral body compression fractures. IMPRESSION: 1. Findings suggestive of mesenteric adenitis in the appropriate clinical setting. 2. Appendix not seen. No evidence of appendicitis. 3. Trace free fluid in the pelvis, within physiological limits in a menstruating female. Dictated by: Natlay Ozuna M.D. on 12/11/2019 at 19:00 Approved by: Nataly Ozuna M.D. on 12/11/2019 at 19:02 [facility] Narrative Medical decision making narrative: This is a 29 year female with history of type 1 diabetes and multiple episodes of DKA presents to ED with right abdominal pain discomfort which started this morning. Denies constitutional symptoms. Physical exam appreciated exquisite right mid to low abdominal discomfort to palpate with rebound tenderness. No leukocytosis with normal lactate of 1.1. Within normal H&H. Normal potassium of 4.4, glucose of 720. Elevated BUN of 21 and BUN/creatinine ratio of 37.5 with normal creatinine level and estimated GFR indicating patient is severely dehydrated. Sodium of 128 but sodium correction for hyperglycemia is within normal of 138-143. No acidosis per VBG test. pH 7.52; pCO2 32.6; pO2 47; HCO3 26.6. Slightly elevated alkaline phosphatase of 304 and lipase of 332. Serum test was negative. Patient was hydrated with normal saline 2 L and medicated with 10 units of regular insulin subcutaneously. Patient received total 2 mg of IV Dilaudid in 3 separate occasions and Toradol 15mg IV. Patient was pretreated with Benadryl and Solu-Medrol before CT scan of abdomen and pelvis with contrast since patient has allergies to shellfish and iodine. No allergy reaction was reported. Patient was able to void after IV hydration. Urine test shows positive for urine leuko site esterase of 70 without nitrites. Micro urine test shows WBC of 10-30 with few bacteria and yeast and urine cultures pending. Given patient has hyperglycemia and frequent UTIs, patient was treated with IV antibiotic medication Rocephin and [address] of abdomen/pelvis shows no evidence of appendicitis. Liver, gallbladder, biliary system are within normal limits. Normal pancreas and spleen. No acute findings in kidneys. Noted mildly prominent mesenteric lymph nodes measuring last than 1 cm short axis suggestive of mesenteric adenitis and trace free fluid in pelvis. Since she is not menstruating, patient might have ruptured ovarian cyst. Patient advised to take [id number] Tylenol and or Motrin as needed for discomfort and [place] for severe pain and discharged to home with few tabs and discussed narcotic pain medication precautions. Patient was able to tolerate ice chips without nausea or vomiting. Blood glucose decreased to 432 after one liter NS infusion and insulin. She was discharged to home with 7 day course of Keflex q.i.d. dose for recurring UTI. Return precautions were discussed with patient and patient verbalized understanding and agreement with the treatment plan. <Megan Luevano, DO - Last Filed: 12/12/19 07:12> Lab Data Labs: Lab Results 12/11/19 12/11/19 12/11/19 Range/Units 17:41 17:41 17:41 WBC 4.7 (4.5-11.0) X10^3/uL RBC 4.09 (4.0-5.2) X10^6/uL Hgb 13.5 (12.0-16.0) g/dL Hct 39.3 (36-46) % MCV 96.2 (80-100) fL MCH 33.1 (26-34) PG MCHC 34.4 (30-36) % RDW 12.9 (11.6-14.8) % Plt Count 310 (150-400) X10^3/uL Neut % (Auto) 57.9 (50-75) % Lymph % (Auto) 31.4 (25-40) % Harding % (Auto) 8.6 (3-14) % Eos % (Auto) 0.9 L (2-4) % Baso % (Auto) 1.2 (0-2) % Neut # (Auto) 2700 (1203-3730) /uL Lymph # (Auto) 1500 (5952-5294) /uL Harding # (Auto) 400 (0-900) /uL Eos # (Auto) 0 (0-450) /uL Baso # (Auto) 100 (0-100) /uL VBG pH (7.33-7.43) VBG pCO2 (45-50) mmHg VBG pO2 (35-45) mmHg VBG HCO3 (23-28) mmol/L VBG Total CO2 (24-29) mmol/L VBG O2 Saturation (70-75) % VBG Base Excess (0-4) mmol/L Sodium 128 L (137-145) mmol/L Potassium 4.4 (3.4-5.1) mmol/L Chloride 93 L (98-107) mmol/L Carbon Dioxide 23 (22-32) mmol/L BUN 21 H (7-17) mg/dL Creatinine 0.56 (0.52-1.04) mg/dL Estimated GFR > 60.0 (>60) mL/min BUN/Creatinine Ratio 37.5 H (6-22) Glucose 720 H* (70-100) mg/dL Lactate 1.1 (0.7-2.1) mmol/L Calcium 8.8 (8.4-10.2) mg/dL Phosphorus (2.5-4.5) mg/dL Magnesium (1.6-2.3) mg/dL Total Bilirubin 0.7 (0.2-1.3) mg/dL AST 27 (14-36) IU/L ALT 22 (<35) IU/L Alkaline Phosphatase 304 H (38-126) U/L Total Protein 6.8 (6.3-8.2) g/dL Albumin 4.0 (3.5-5.0) g/dL Globulin 2.8 (1.7-4.1) g/dL Albumin/Globulin Ratio 1.4 (1.0-2.8) Lipase 332 H (23-300) U/L Serum , Qual (Negative) Urine RBC (0-5/HPF) Urine WBC (0-5/HPF) Ur Squamous Epith Cells (0-5/HPF) Ur Transition Epith Cell (0-5/HPF) Urine Bacteria (None) Urine Yeast (None) Ur Culture Indicated? 12/11/19 12/11/19 12/11/19 Range/Units 17:41 17:41 17:45 WBC (4.5-11.0) X10^3/uL RBC (4.0-5.2) X10^6/uL Hgb (12.0-16.0) g/dL Hct (36-46) % MCV (80-100) fL MCH (26-34) PG MCHC (30-36) % RDW (11.6-14.8) % Plt Count (150-400) X10^3/uL Neut % (Auto) (50-75) % Lymph % (Auto) (25-40) % [place]ing % (Auto) (3-14) % Eos % (Auto) (2-4) % Baso % (Auto) (0-2) % Neut # (Auto) (9051-3043) /uL Lymph # (Auto) (0377-1365) /uL Harding # (Auto) (0-900) /uL Eos # (Auto) (0-450) /uL Baso # (Auto) (0-100) /uL VBG pH 7.52 H (7.33-7.43) VBG pCO2 32.6 L (45-50) mmHg VBG pO2 47 H (35-45) mmHg VBG HCO3 27 (23-28) mmol/L VBG Total CO2 28 (24-29) mmol/L VBG O2 Saturation 87 H (70-75) % VBG Base Excess 4.0 (0-4) mmol/L Sodium (137-145) mmol/L Potassium (3.4-5.1) mmol/L Chloride (98-107) mmol/L Carbon Dioxide (22-32) mmol/L BUN (7-17) mg/dL Creatinine (0.52-1.04) mg/dL Estimated GFR (>60) mL/min BUN/Creatinine Ratio (6-22) Glucose (70-100) mg/dL Lactate (0.7-2.1) mmol/L Calcium (8.4-10.2) mg/dL Phosphorus 4.4 (2.5-4.5) mg/dL Magnesium 1.9 (1.6-2.3) mg/dL Total Bilirubin (0.2-1.3) mg/dL AST (14-36) IU/L ALT (<35) IU/L Alkaline Phosphatase (38-126) U/L Total Protein (6.3-8.2) g/dL Albumin (3.5-5.0) g/dL Globulin (1.7-4.1) g/dL Albumin/Globulin Ratio (1.0-2.8) Lipase (23-300) U/L Serum , Qual Negative (Negative) Urine RBC (0-5/HPF) Urine WBC (0-5/HPF) Ur Squamous Epith Cells (0-5/HPF) Ur Transition Epith Cell (0-5/HPF) Urine Bacteria (None) Urine Yeast (None) Ur Culture Indicated? 12/11/19 Range/Units 18:37 WBC (4.5-11.0) X10^3/uL RBC (4.0-5.2) X10^6/uL Hgb (12.0-16.0) g/dL Hct (36-46) % MCV (80-100) fL MCH (26-34) PG MCHC (30-36) % RDW (11.6-14.8) % Plt Count (150-400) X10^3/uL Neut % (Auto) (50-75) % Lymph % (Auto) (25-40) % [place] % (Auto) (3-14) % Eos % (Auto) (2-4) % Baso % (Auto) (0-2) % Neut # (Auto) (9836-3139) /uL Lymph # (Auto) (1864-5851) /uL [place] # (Auto) (0-900) /uL Eos # (Auto) (0-450) /uL Baso # (Auto) (0-100) /uL VBG pH (7.33-7.43) VBG pCO2 (45-50) mmHg VBG pO2 (35-45) mmHg VBG HCO3 (23-28) mmol/L VBG Total CO2 (24-29) mmol/L VBG O2 Saturation (70-75) % VBG Base Excess (0-4) mmol/L Sodium (137-145) mmol/L Potassium (3.4-5.1) mmol/L Chloride (98-107) mmol/L Carbon Dioxide (22-32) mmol/L BUN (7-17) mg/dL Creatinine (0.52-1.04) mg/dL Estimated GFR (>60) mL/min BUN/Creatinine Ratio (6-22) Glucose (70-100) mg/dL Lactate (0.7-2.1) mmol/L Calcium (8.4-10.2) mg/dL Phosphorus (2.5-4.5) mg/dL Magnesium (1.6-2.3) mg/dL Total Bilirubin (0.2-1.3) mg/dL AST (14-36) IU/L ALT (<35) IU/L Alkaline Phosphatase (38-126) U/L Total Protein (6.3-8.2) g/dL Albumin (3.5-5.0) g/dL Globulin (1.7-4.1) g/dL Albumin/Globulin Ratio (1.0-2.8) Lipase (23-300) U/L Serum , Qual (Negative) Urine RBC 0-1/hpf (0-5/HPF) Urine WBC 10-30/hpf H (0-5/HPF) Ur Squamous Epith Cells 1-5 /hpf (0-5/HPF) Ur Transition Epith Cell 1-5/hpf (0-5/HPF) Urine Bacteria Few (2-10) H (None) Urine Yeast 5-10/hpf H (None) Ur Culture Indicated? Specimen cultured Point of care testing: Point of Care Testing Glucose POC 432 Urine Dip Bedside Urine Glucose 1000 mg/dl Bedside Urine Bilirubin - Negative Bedside Urine Ketone + 15 Urine Specific Nettie 1.005 Bedside Urine Occult Blood +/- Bedside Urine pH 8.0 Bedside Urine Protein +/- 15 Bedside Urine Urobilinogen - Negative Bedside Urine Nitrite - Negative Bedside Urine Leukocytes + 70 Esterase Discharge Plan Departure Patient Disposition: Home Clinical Impression: Mesenteric adenitis, History of local excision of skin lesion Abdominal pain Qualifiers: Abdominal location: right lower quadrant Qualified Code(s): R10.31 - Right lower quadrant pain Type 1 diabetes Qualifiers: Diabetes mellitus complication status: with hyperglycemia Qualified Code(s): E10.65 - Type 1 diabetes mellitus with hyperglycemia Urinary tract infection Qualifiers: Urinary tract infection type: site unspecified Hematuria presence: without hematuria Qualified Code(s): N39.0 - Urinary tract infection, site not specified Discharge Date/Time: 12/11/19 21:45 Instructions: DI for Urinary Tract Infection (UTI), DI for Abdominal Pain-Adult, DI for Hyperglycemia -- Adult, DI for Mesenteric Adenitis-Adult Activity Restrictions/Additional Instructions: You have been diagnosed with [right quadrant abdominal pain, mesenteric adenitis, elevated glucose, UTI]. What to do: *Take your medications as directed. Please take [id number] Tylenol and or Motrin as needed for discomfort. Take [place] only for severe pain which is narcotic medications. He can cause drowsiness so please do not drive, drink alcohol, or operate heavy equipments. It can also cause constipation so please take precautions. Please continue with Keflex starting tomorrow for UTI. Take 4 times a day for next 7 days. *Follow up with your primary care provider in 2-3 days, call for an appointment. Let them know you were seen in the ED and that we asked you to be seen in follow up. *Return to ED if you have any new, worsening, or concerning symptoms, such as [fever, worsening pain, dehydration, flank pain, chest pain, breathing difficulty, unable to tolerate fluids or any acute concerns]. Prescriptions: New cephalexin [Keflex] 500 mg capsule 500 mg PO Q6H 7 Days Qty: 28 RF: 0 hydrocodone-acetaminophen [[place]] 5-325 mg tablet 1 tab PO TID PRN (Reason: pain) Qty: 7 RF: 0 No Action glucose 4 gram tablet,chewable 4 gram PO Q15M PRN (Reason: hypoglycemia) Qty: 30 RF: 0 Glucagon Emergency Kit (human) 1 mg recon soln 1 mg subcut DIRECTED RF: 0 insulin aspart U-100 [Novolog Flexpen U-100 Insulin] 100 unit/mL (3 mL) Insulin Pen 7 unit SUBCUT AC Qty: 30 RF: 0 insulin degludec 200 unit/mL (3 mL) Insulin Pen 53 unit SUBCUT DAILY RF: 0 <Megan Luevano DO - Last Filed: 12/12/19 07:12> [facility] Attending [place] Attestation: I was immediately available in the department for consultation. Documentation has been reviewed. I agree with assessment and plan.
[2019-12-11] MEDS: FLUCONAZOLE 100 MG TABLET PO (20:18)
[2019-12-11 20:30] VITALS: BP 131/86; PULSE 93; RESP 11; O2SAT 96
[2019-12-11 21:00] VITALS: BP 136/89; PULSE 97; RESP 13; O2SAT 96
[2019-12-11 21:44] VITALS: BP 128/84; PULSE 102; RESP 17; O2SAT 96
== END 2019-12-11 21:45 | disposition home or self-care (01) ==
PROVIDERS: Emergency Medicine; Emergency Provider Nurse Practitioner Family; PCP Surgery
DX: N39.0 Urinary tract infection, site not specified (principal); R10.31 Right lower quadrant pain; E10.65 Type 1 diabetes mellitus with hyperglycemia; I88.0 Nonspecific mesenteric lymphadenitis
CPT/HCPCS: 36415; 74177; 80053; 81003; 81015; 82805; 82962; 83605; 83690; 83735; 84100; 84703; 85025; 87077; 87086; 87186; 96361; 96365; 96372; 96375; 96376; 99284; J1170; J1200; J1885; J2930

== ENCOUNTER → 2019-12-16 15:30 | Outpatient (CLI) | payer OTHER, MEDICAID, SELFPAY ==
[2019-11-22 20:39] VITALS: BMI 17.0
== END ==
PROVIDERS: PCP Surgery; Referring Provider Surgery; Visit Provider Family Medicine
DX: S01.00XA Unspecified open wound of scalp, initial encounter (principal); E10.65 Type 1 diabetes mellitus with hyperglycemia
CPT/HCPCS: 97597; 99212

== ENCOUNTER → 2019-12-23 15:27 | Outpatient (CLI) | payer OTHER, MEDICAID, SELFPAY ==
[2019-11-22 20:39] VITALS: BMI 17.0
== END ==
PROVIDERS: PCP Surgery; Referring Provider Surgery; Visit Provider Family Medicine
DX: S01.00XA Unspecified open wound of scalp, initial encounter (principal); E10.65 Type 1 diabetes mellitus with hyperglycemia
CPT/HCPCS: 99213

== ENCOUNTER → 2019-12-30 16:11 | Outpatient (CLI) | payer OTHER, MEDICAID, SELFPAY ==
[2019-11-22 20:39] VITALS: BMI 17.0
== END ==
PROVIDERS: PCP Surgery; Referring Provider Surgery; Visit Provider Family Medicine
DX: T81.31XA Disruption of external operation (surgical) wound, not elsewhere classified, initial encounter (principal); S01.00XA Unspecified open wound of scalp, initial encounter
CPT/HCPCS: 99213

== ENCOUNTER 2020-01-03 16:01 | Inpatient (IN) | payer OTHER, MEDICAID, SELFPAY ==
[2019-11-22 20:39] VITALS: BMI 17.0
[2020-01-03] VITALS (8 sets, daily range): BP systolic 91–138; BP diastolic 52–83; PULSE 107–133; RESP 9–22; TEMP 36.7–37.3; O2SAT 95–100; BMI 18.3
--- NOTE | 2020-01-03 16:11 | ED_ITS ---
HPI - Abdominal Pain General Chief Complaint: Diabetic Problem Stated Complaint: nausea,feeling dehydrated Time Seen by Provider: 01/03/20 16:02 Source: patient and family Mode of arrival: Ambulatory Limitations: no limitations History of Present Illness HPI narrative: 29-year-old female nonsmoker with extensive history of DKA, known well to the staff presents with a chief complaint of significant nausea and generalized abdominal pain over the course of the day. She feels significantly weak and lightheaded. She denies any runny nose, sore throat or cough. She denies chest pain or shortness of breath. She denies any fever or shaking chills. She states that she has been checking her sugars at home and they have been high. She denies any recent illness nor change in her diabetic regimen. MD complaint: abdominal pain Onset (ago): hour(s) Pain Consistency: constant Location: diffuse Severity: moderate Quality: cramping and aching Radiation: none Relieving factors: nothing Associated symptoms: nausea Related Data Home Medications Medication Instructions Recorded Confirmed Glucagon Emergency Kit (human) 1 mg SUBCUT DIRECTED 02/16/19 11/22/19 insulin degludec 53 unit SUBCUT DAILY 11/21/19 11/22/19 Previous Rx's Medication Instructions Recorded glucose 4 gram PO Q15M PRN #30 tab 12/12/18 insulin aspart U-100 [Novolog 7 unit SUBCUT AC #30 ml 10/30/19 Flexpen U-100 Insulin] hydrocodone-acetaminophen [[place]] 1 tab PO TID PRN #7 tab 12/11/19 Allergies Allergy/AdvReac Type Severity Reaction Status Date / Time arredondo [ARREDONDO] Allergy Intermediate Hives, Verified 12/11/19 16:55 pruritus iodine [IODINE] Allergy Intermediate rash, itchy Verified 12/11/19 16:55 morphine Allergy Intermediate Difficulty Verified 12/11/19 16:55 Breathing shellfish derived Allergy Intermediate rash Verified 12/11/19 16:55 [SHELLFISH DERIVED] adhesive [ADHESIVE] Allergy Unknown tape Verified 12/11/19 16:55 latex [LATEX] Allergy Unknown Hives Verified 12/11/19 16:55 Review of Systems Constitutional Constitutional: Denies chills, Denies fatigue, Denies fever(s), Denies frequent falls, Denies lethargy and Reports weakness Eyes Eyes: Denies change in vision, Denies eye discharge, Denies irritation and Denies loss of vision ENT Ears, Nose, Mouth, and Throat: Denies change in voice, Denies dizziness, Denies neck pain, Denies sore throat and Denies throat swelling Cardiovascular Cardiovascular: Denies chest pain, Denies irregular heart rhythm, Denies lightheadedness, Denies palpitations, Denies dyspnea, Denies dyspnea on exertion and Denies orthopnea Respiratory Respiratory: Denies cough, Denies dyspnea, Denies dyspnea on exertion and Denies wheezing Gastrointestinal Gastrointestinal: Reports abdominal pain, Denies change in bowel habits, Denies diarrhea, Reports nausea and Denies vomiting Musculoskeletal Musculoskeletal: Denies neck pain and Denies numbness Integumentary/Breasts Skin/Breast: Denies pruritus, Denies erythema, Denies rash and Denies wounds Neurologic Neurologic: Denies behavioral changes, Denies confusion, Denies dizziness, Denies frequent falls, Denies loss of vision, Denies numbness and Reports weakness Psychiatric Psychiatric: Denies anxiety, Denies behavioral changes, Denies confusion, Denies depression, Denies homicidal ideation and Denies suicidal ideation Endocrine Endocrine: Denies fatigue, Denies flushing and Denies palpitations Hematologic/Lymphatic Hematologic/Lymphatic: Denies easy bruising Allergic/Immunologic Allergic/Immunologic: Denies urticaria, Denies throat swelling and Denies wheezing Patient History Medical History DKA (diabetic ketoacidoses) (Resolved) History of pyelonephritis (Resolved) Irregular menstrual cycle (Acute) Migraine headache (Chronic) Nephrolithiasis (Resolved) Type 1 diabetes mellitus (Chronic) Surgical History History of ureter stent (Resolved) Hx of local excision of skin lesion (Acute) Status post laser lithotripsy of ureteral calculus (Acute) [place] teeth extracted (Acute) Family History Father In good health Mother Cardiac disease Social History details: Engaged household members: significant other and family Smoking Status: Never smoker alcohol intake: current Smoking Status: Never smoker alcohol intake frequency: 0-2 drinks per day Substance Use Type: does not use Exam Narrative Exam Narrative: GENERAL: [29] year old patient appears stated age. Chronically ill, quite thin, obviously uncomfortable, in pain, tearful HEAD: Atraumatic. Normocephalic. Healing surgical wound on scalp from prior visits for abscess EYES: Pupils equal round and reactive. Extraocular motions intact. No scleral icterus. No injection or drainage. ENT: Dry mucous membranes Nose without bleeding, purulent drainage. Throat without erythema, tonsillar hypertrophy or exudate. Airway patent. NECK: Trachea midline. Non tender CARDIOVASCULAR: Regular rate and rhythm without murmurs, gallops, or rubs. RESPIRATORY: Clear to auscultation. Breath sounds equal bilaterally. No wheezes, rales, or rhonchi. GASTROINTESTINAL: Abdomen soft, generalized tenderness, nondistended. EXTREMITIES: No edema or joint tenderness. BACK: Nontender without deformity or crepitance. No flank tenderness. NEURO: AOx3. SKIN: No rash or erythema of visible areas Initial Vital Signs Initial Vital Signs: Vital Signs Temperature 98.1 F 01/03/20 16:15 Pulse Rate 133 H 01/03/20 16:15 Respiratory Rate 19 01/03/20 16:15 Blood Pressure 138/83 01/03/20 16:15 Pulse Oximetry 97 01/03/20 16:15 Course Orders Ordered: ED Orders 01/03/20 16:02 Blood Culture Stat EKG-12 Lead Stat 01/03/20 16:20 Complete Blood Count AUTO DIFF Stat Comprehensive Metabolic Panel Stat Ketones (Beta-Hydroxybutyrate) Stat Lactate (Lactic Acid) Stat Procalcitonin Stat 01/03/20 16:26 Venous Blood Gas Stat 01/03/20 16:33 COVID19 -ED/INPAT/OR/L&D Stat INSULIN DRIP PREMIX (Myxredlin Drip Premix) 100 unit in 100 mls @ 6 mls/hr IV TITRATE BLAISE; Protocol Last Admin: 01/03/20 17:15 Dose: 6 mls /hr, 6 mls/hr Documented by: CANDE Cosigned by: LIZZY Sodium Chloride (Normal Saline 0.45%) 1,000 mls @ 1,000 mls/hr IV BOLUS ONE Stop: 01/03/20 17:52 Last Admin: 01/03/20 17:15 Dose: 1,000 mls/hr Documented by: CANDE Ondansetron HCl (Zofran) 4 mg IV Q4HR PRN PRN Reason: Nausea And Vomiting Last Admin: 01/03/20 16:35 Dose: 4 mg Documented by: LIZZY Discontinued Medications Hydromorphone HCl (Dilaudid) 0.5 mg IV NOW ONE Stop: 01/03/20 16:11 Last Admin: 01/03/20 16:35 Dose: 0.5 mg Documented by: LIZZY Hydromorphone HCl (Dilaudid) 0.5 mg IV NOW ONE Stop: 01/03/20 17:37 Last Admin: 01/03/20 17:41 Dose: 0.5 mg Documented by: CANDE Sodium Chloride (Normal Saline 0.9%) 1,000 mls @ 1,000 mls/hr IV BOLUS ONE Stop: 01/03/20 17:01 Last Admin: 01/03/20 16:35 Dose: 1,000 mls/hr Documented by: LIZZY Vital Signs Vital signs: Vital Signs - 8 hr 01/03/20 16:15 Temperature 98.1 F Pulse Rate 133 H Respiratory Rate 19 Blood Pressure 138/83 Pulse Oximetry 97 MDM - Abdominal Pain Lab Data Result diagrams: 01/03/20 16:20 01/03/20 16:20 Labs: Lab Results 01/03/20 01/03/20 01/03/20 Range/Units 16:20 16:20 16:20 WBC 6.6 (4.5-11.0) X10^3/uL RBC 4.84 (4.0-5.2) X10^6/uL Hgb 15.8 (12.0-16.0) g/dL Hct 47.2 H (36-46) % MCV 97.6 (80-100) fL MCH 32.7 (26-34) PG MCHC 33.5 (30-36) % RDW 13.1 (11.6-14.8) % Plt Count 349 (150-400) X10^3/uL Neut % (Auto) 60.5 (50-75) % Lymph % (Auto) 32.4 (25-40) % [place] % (Auto) 5.8 (3-14) % Eos % (Auto) 0.3 L (2-4) % Baso % (Auto) 1.0 (0-2) % Neut # (Auto) 4000 (3262-8097) /uL Lymph # (Auto) 2100 (8505-2341) /uL [place] # (Auto) 400 (0-900) /uL Eos # (Auto) 0 (0-450) /uL Baso # (Auto) 100 (0-100) /uL VBG pH (7.33-7.43) VBG pCO2 (45-50) mmHg VBG pO2 (35-45) mmHg VBG HCO3 (23-28) mmol/L VBG Total CO2 (24-29) mmol/L VBG O2 Saturation (70-75) % VBG Base Excess (0-4) mmol/L Sodium 138 (137-145) mmol/L Potassium 5.4 H (3.4-5.1) mmol/L Chloride 101 (98-107) mmol/L Carbon Dioxide < 5 L* (22-32) mmol/L BUN 19 H (7-17) mg/dL Creatinine 0.83 (0.52-1.04) mg/dL Estimated GFR > 60.0 (>60) mL/min BUN/Creatinine Ratio 22.9 H (6-22) Glucose 501 H* (70-100) mg/dL Lactate (0.7-2.1) mmol/L Calcium 9.9 (8.4-10.2) mg/dL Total Bilirubin 0.9 (0.2-1.3) mg/dL AST 29 (14-36) IU/L ALT 18 (<35) IU/L Alkaline Phosphatase 153 H (38-126) U/L Total Protein 8.9 H (6.3-8.2) g/dL Albumin 5.0 (3.5-5.0) g/dL Globulin 3.9 (1.7-4.1) g/dL Albumin/Globulin Ratio 1.3 (1.0-2.8) Procalcitonin < 0.05 (<0.5) ng/mL Ketones 16.42 H (<0.27) mmol/L 01/03/20 01/03/20 Range/Units 16:20 16:26 WBC (4.5-11.0) X10^3/uL RBC (4.0-5.2) X10^6/uL Hgb (12.0-16.0) g/dL Hct (36-46) % MCV (80-100) fL MCH (26-34) PG MCHC (30-36) % RDW (11.6-14.8) % Plt Count (150-400) X10^3/uL Neut % (Auto) (50-75) % Lymph % (Auto) (25-40) % [place] % (Auto) (3-14) % Eos % (Auto) (2-4) % Baso % (Auto) (0-2) % Neut # (Auto) (9641-9806) /uL Lymph # (Auto) (3680-5143) /uL [place] # (Auto) (0-900) /uL Eos # (Auto) (0-450) /uL Baso # (Auto) (0-100) /uL VBG pH 7.16 L* (7.33-7.43) VBG pCO2 19.5 L (45-50) mmHg VBG pO2 36 (35-45) mmHg VBG HCO3 7 L (23-28) mmol/L VBG Total CO2 8 L (24-29) mmol/L VBG O2 Saturation 55 L (70-75) % VBG Base Excess -22.0 L (0-4) mmol/L Sodium (137-145) mmol/L Potassium (3.4-5.1) mmol/L Chloride (98-107) mmol/L Carbon Dioxide (22-32) mmol/L BUN (7-17) mg/dL Creatinine (0.52-1.04) mg/dL Estimated GFR (>60) mL/min BUN/Creatinine Ratio (6-22) Glucose (70-100) mg/dL Lactate 1.2 (0.7-2.1) mmol/L Calcium (8.4-10.2) mg/dL Total Bilirubin (0.2-1.3) mg/dL AST (14-36) IU/L ALT (<35) IU/L Alkaline Phosphatase (38-126) U/L Total Protein (6.3-8.2) g/dL Albumin (3.5-5.0) g/dL Globulin (1.7-4.1) g/dL Albumin/Globulin Ratio (1.0-2.8) Procalcitonin (<0.5) ng/mL Ketones (<0.27) mmol/L Point of care testing: Point of Care Testing Glucose POC 447 Discharge Plan Departure Patient Disposition: Admitted As Inpatient Clinical Impression: Diabetes mellitus type I Qualifiers: Diabetes mellitus complication status: without complication Qualified Code(s): E10.9 - Type 1 diabetes mellitus without complications DKA (diabetic ketoacidoses) Qualifiers: Diabetes mellitus type: type 1 Diabetes mellitus complication detail: without coma Qualified Code(s): E10.10 - Type 1 diabetes mellitus with ketoacidosis without coma Referrals: Jimmy Anderson MD [Primary Care Provider] -
[2020-01-03 16:34] LABS: Add Manual Diff / Slide Review NO; Basophils Absolute Auto 100 /uL (0-100); Eosinophils Absolute Auto 0 /uL (0-450); Eosinophils Percent Auto 0.3 % (2-4); Hematocrit 47.2 % (36-46); Hemoglobin 15.8 g/dL (12.0-16.0); Lymphocytes Absolute Auto 2100 /uL (1100-4500); Lymphocytes Percent Auto 32.4 % (25-40); Mean Corpuscular HGB Conc 33.5 % (30-36); Mean Corpuscular Hemoglobin 32.7 PG (26-34); Mean Corpuscular Volume 97.6 fL (80-100); Monocytes Absolute Auto 400 /uL (0-900); Monocytes Percent Auto 5.8 % (3-14); Neutrophils Absolute Auto 4000 /uL (1500-7000); Neutrophils Percent Auto 60.5 % (50-75); Platelet Count 349 X10^3/uL (150-400); Red Blood Cell Count 4.84 X10^6/uL (4.0-5.2); Red Cell Distribution Width 13.1 % (11.6-14.8); White Blood Cell Count 6.6 X10^3/uL (4.5-11.0)
[2020-01-03 16:34] LABS: pH VBG 7.16 (7.33-7.43)
[2020-01-03 16:35] LABS: HCO3 VBG 7 mmol/L (23-28); Oxygen Saturation VBG 55 % (70-75); PCO2 VBG 19.5 mmHg (45-50); PO2 VBG 36 mmHg (35-45); Total CO2 VBG 8 mmol/L (24-29)
[2020-01-03] MEDS: HYDROMORPHONE 0.5 MG INJ IV ×2 (16:35→17:41)
[2020-01-03] MEDS: SODIUM CHLORIDE 0.9% 1,000 ML 1000 ML IV (16:35)
[2020-01-03] MEDS: ONDANSETRON 4 MG/2 ML INJ IV (16:35)
[2020-01-03 16:44] LABS: Alanine Aminotransferase 18 IU/L (<35); Albumin Globulin Ratio 1.3 (1.0-2.8); Alkaline Phosphatase 153 U/L (38-126); Aspartate Aminotransferase 29 IU/L (14-36); BUN Creatinine Ratio 22.9 (6-22); Bilirubin Total 0.9 mg/dL (0.2-1.3); Blood Urea Nitrogen 19 mg/dL (7-17); Calcium 9.9 mg/dL (8.4-10.2); Chloride 101 mmol/L (98-107); Estimated Glomerular Filt Rate > 60.0 mL/min (>60); Globulin 3.9 g/dL (1.7-4.1); Sodium 138 mmol/L (137-145); Total Protein 8.9 g/dL (6.3-8.2)
[2020-01-03 16:45] LABS: Lactate (Lactic Acid) 1.2 mmol/L (0.7-2.1)
[2020-01-03 16:52] LABS: Potassium 5.4 mmol/L (3.4-5.1)
[2020-01-03 16:54] LABS: Carbon Dioxide < 5 mmol/L (22-32); HEMOLYSIS 105 (0-50)
[2020-01-03 16:55] LABS: Glucose 501 mg/dL (70-100)
[2020-01-03 17:07] LABS: Ketones (Beta-Hydroxybutyrate) 16.42 mmol/L (<0.27); Procalcitonin < 0.05 ng/mL (<0.5)
[2020-01-03] MEDS: INSULIN DRIP PREMIX 100 UNIT/100 ML PLAST..BAG 6 UNIT IV (17:15)
[2020-01-03] MEDS: SODIUM CHLORIDE 0.45% 1,000 ML 1000 ML IV (17:15)
[2020-01-03 18:26] LABS: COVID19 -Nasal RAPID Negative (Negative)
[2020-01-03] MEDS: SODIUM CHLORIDE 0.45% 1,000 ML 150 ML IV (18:48)
[2020-01-03] MEDS: diphenhydrAMINE 50 MG/ML VIAL 25 MG IV (18:51)
[2020-01-03 19:40] LABS: Hemoglobin A1C% w Est Avg Glu > 14.0 % (4.0-6.0); Magnesium 1.8 mg/dL (1.6-2.3); Phosphorous 4.2 mg/dL (2.5-4.5)
[2020-01-03] MEDS: INSULIN REGULAR, HUMAN 100 UNIT in SODIUM CHLORIDE 0.9% 100 ML IV (19:40)
[2020-01-03] MEDS: METOCLOPRAMIDE 10 MG/2 ML INJ IV (19:46)
[2020-01-03] MEDS: ACETAMINOPHEN 325 MG TABLET 650 MG PO (19:46)
[2020-01-03] MEDS: HYDROMORPHONE 1 MG INJ 0.5 MG IV (19:47)
[2020-01-03 19:59] LABS: BUN Creatinine Ratio 23.3 (6-22); Blood Urea Nitrogen 17 mg/dL (7-17); Calcium 8.6 mg/dL (8.4-10.2); Chloride 106 mmol/L (98-107); Estimated Glomerular Filt Rate > 60.0 mL/min (>60); Glucose 314 mg/dL (70-100); HEMOLYSIS < 15 (0-50); Sodium 139 mmol/L (137-145)
[2020-01-03 20:02] LABS: Carbon Dioxide 7 mmol/L (22-32)
[2020-01-03] MEDS: DEXTROSE 5%-0.45% NS 1,000 ML 150 ML IV (20:26)
--- NOTE | 2020-01-03 20:34 | P.HP_ITS ---
History of Present Illness History of Present Illness Date Patient Seen: 01/03/20 Time Patient Seen: 19:42 Chief complaint: nausea,feeling dehydrated Narrative: Ms. Sarabjit Jimenes is a 29-year-old female patient with a history significant for poorly controlled type 1 diabetes, frequent admissions for DKA, migraines and irregular menstruation who presents to the ER with complaints of generalized abdominal pain and nausea. She reports checking her blood sugars multiple times daily and has been reading ?high? for last 2-3 days. The patient has been admitted for DKA 3 times in September, 3 times in October once in November with an additional 3 ER visits as well. Her last ER visit was 12/11/2019 with the patient was seen for right lower quadrant abdominal pain. At that time her blood sugar was found to be 702 without acidosis demonstrating a bicarb of 23 and at at 9 gap of 12. Blood sugars are treated patient was discharged home with a diagnosis of right lower quadrant abdominal pain, mesenteric adenitis and urinary tract infection. Patient is tonight's symptoms since no fevers or chills and began feeling ill today with recurrent abdominal pain and nausea. She reports that she has been compliant with her medications using Humalog for sliding scale and 50 units of Tresiba daily at 11 am. She states that her Tresiba dose was decreased from 53-15 due to hypoglycemic episodes in the middle the night with blood sugars down to 43 and continues to use uses correctional and mealtime insulin. On checking her blood sugar this evening she reports her glucometer reading high and took 13 units of insulin prior to presenting to the emergency department. She has established care at the [facility] and reports that she has no regular primary care provider. Her hemoglobin A1c has been greater than 14 since June of 2018. She is sexually active and not presently menstruating and previously would have to menstrual cycles per month and was started on which was since and august of this year and has had no menstrual period since. The patient denies any complaints of fevers or chills, rashes or lesions, urinary symptoms or vaginal discharge. She has a scalp wound that is followed at the wound clinic here. She tells me that in a there is plans for surgery early next month for wound closure. She denies complaints of skin rashes or abscesses, flank pain, fevers or chills or known COVID-19 exposure. She reports no chest pain or palpitations, epigastric or abdominal pain pain, nausea or vomiting. She reports no further diarrhea. She has known neurogenic bladder and underwent recent treatment for UTI. She d enies further urinary symptoms of burning, foul-smelling urine or hematuria. Upon arrival to the ER the patient had temperature of 99.0?, heart rate of 121, blood pressure 114/75, respirations 22 and oxygen saturation 99%. No imaging was completed. Patient has a white count of 6.6 no shift, hemoglobin of 15.8 and hematocrit of 47.2 with platelets of 349. She has sodium 138 with a potassium of 5.4, chloride of 1 at 0 1 and bicarbonate of less than 5. Her BUN is 19 and creatinine 0.83 with a glucose of 501. She has a total bilirubin 0.9 AST of 29, ALT of 18 elevated alkaline phosphatase of 153. Her albumin is 5.0. On VBG she has a pH of 7.16 and a base excess of -22. She has lactic acid of 1.2, procalcitonin is a negative at less than 0.05 and ketones positive at 16.42. In the ER the patient received Zofran 4 mg Dilaudid 0.5 mg 1 bolus of normal saline and 1 L of 1/2 normal saline and started on insulin drip. Patient is admitted to the medicine service for diabetic ketoacidosis. Patient History Medical History DKA (diabetic ketoacidoses) (Resolved) History of pyelonephritis (Resolved) Irregular menstrual cycle (Acute) Migraine headache (Chronic) Nephrolithiasis (Resolved) Type 1 diabetes mellitus (Chronic) Surgical History History of ureter stent (Resolved) Hx of local excision of skin lesion (Acute) Status post laser lithotripsy of ureteral calculus (Acute) [place] teeth extracted (Acute) Family & Social History Family History Father In good health Mother Cardiac disease Social History: household members significant other,family Prior Living Arrangements House Safety & Behavioral: Feels Safe in Current Yes Environment Been Physically Hurt or No Threatened By a Person Suicidal Ideation Description None Suicide Plan Description No Plan Tobacco & Substance use: Smoking Status Never smoker alcohol intake current alcohol intake frequency 0-2 drinks per day Substance Use Type does not use Meds Home Medications and Allergies Home Medications Medication Instructions Recorded Confirmed Type glucose 4 gram PO Q15M PRN #30 tab 12/12/18 01/03/20 Rx Glucagon Emergency Kit (human) 1 mg SUBCUT DIRECTED 02/16/19 01/03/20 History insulin degludec 50 unit SUBCUT DAILY 11/21/19 01/03/20 History hydrocodone-acetaminophen [[place]] 1 tab PO TID PRN #7 tab 12/11/19 01/03/20 Rx insulin aspart U-100 [Novolog 13 unit SUBCUT AC 01/03/20 01/03/20 History Flexpen U-100 Insulin] Allergies Allergy/AdvReac Type Severity Reaction Status Date / Time abdalla [ABDALLA] Allergy Intermediate Hives, Verified 12/11/19 16:55 pruritus iodine [IODINE] Allergy Intermediate rash, itchy Verified 12/11/19 16:55 morphine Allergy Intermediate Difficulty Verified 12/11/19 16:55 Breathing shellfish derived Allergy Intermediate rash Verified 12/11/19 16:55 [SHELLFISH DERIVED] adhesive [ADHESIVE] Allergy Unknown tape Verified 12/11/19 16:55 latex [LATEX] Allergy Unknown Hives Verified 12/11/19 16:55 Review of Systems Review of Systems ROS: Yes All systems reviewed with the patient and are negative except as otherwise documented Exam Vital Signs (past 8 hours): - 01/03/20 16:15 01/03/20 18:05 01/03/20 18:21 Temperature 98.1 F 99.0 F 99.0 F Pulse Rate 133 H 129 H 121 H Respiratory Rate 19 13 22 Blood Pressure 138/83 114/75 114/75 Pulse Oximetry 97 100 99 01/03/20 19:00 01/03/20 20:00 Temperature 99.1 F 98.4 F Pulse Rate 124 H 121 H Respiratory Rate 15 21 Blood Pressure 121/67 91/52 L Pulse Oximetry 100 98 Oxygen Delivery Method Room Air Oxygen Flow Rate 0 Narrative Exam Narrative: GENERAL APPEARANCE: well developed, underweight female, who is it ill-appearing. HEENT: Occlusive dressing covering approximately 1 cm scalp lesion without redness swelling or drainage, PERRLA, conjunctiva clear, EOMs intact without nystagmus, no sinus tenderness to percussion, no rhinorrhea, mucous membranes are dry and pink without lesions or exudate. NECK/THYROID: neck supple, nontender trachea midline. LYMPH NODES: no cervical or supraclavicular lymphadenopathy. SKIN: [place], warm and dry, chronic skin wound without drainage or erythema. HEART: Tachycardia with regular rhythm, S1-S2, no murmur, no rubs or gallops, brisk capillary refill, no edema LUNGS: clear to auscultation bilaterally, no coarseness crackles or wheezing, no cough present CHEST: Symmetrical movement, no accessory muscle use, good tidal volume. ABDOMEN: Soft, no distention, general abdominal tenderness greatest in right lower quadrant, no organomegaly, no flank or suprapubic tenderness, active bowel tones. BACK: Normal curvature, nontender to palpation, no CVA tenderness on percussion EXTREMITIES: moves all extremities, strength is 5/5 and symmetrical, no deformities or joint effusions. NEUROLOGIC: AAO x4, no focal neurologic deficits, cranial nerves II-XII grossly intact, sensation intact to light touch, hearing grossly normal to speech. PSYCH: Fair eye contact, cooperative, appropriate with stable behavior Objective Labs Result Diagrams: 01/03/20 16:20 01/03/20 18:50 Labs: Laboratory Results - last 24 hr 01/03/20 01/03/20 01/03/20 16:20 16:20 16:20 WBC 6.6 RBC 4.84 Hgb 15.8 Hct 47.2 H MCV 97.6 MCH 32.7 MCHC 33.5 RDW 13.1 Plt Count 349 Neut % (Auto) 60.5 Lymph % (Auto) 32.4 [place] % (Auto) 5.8 Eos % (Auto) 0.3 L Baso % (Auto) 1.0 Neut # (Auto) 4000 Lymph # (Auto) 2100 [place] # (Auto) 400 Eos # (Auto) 0 Baso # (Auto) 100 VBG pH VBG pCO2 VBG pO2 VBG HCO3 VBG Total CO2 VBG O2 Saturation VBG Base Excess Sodium 138 Potassium 5.4 H Chloride 101 Carbon Dioxide < 5 L* BUN 19 H Creatinine 0.83 Estimated GFR > 60.0 BUN/Creatinine Ratio 22.9 H Glucose 501 H* Hemoglobin A1c Lactate Calcium 9.9 Phosphorus Magnesium Total Bilirubin 0.9 AST 29 ALT 18 Alkaline Phosphatase 153 H Total Protein 8.9 H Albumin 5.0 Globulin 3.9 Albumin/Globulin Ratio 1.3 Procalcitonin < 0.05 Nasal Screen MRSA (PCR) Ketones 16.42 H COVID-19 PCR 01/03/20 01/03/20 01/03/20 16:20 16:26 17:02 WBC RBC Hgb Hct MCV MCH MCHC RDW Plt Count Neut % (Auto) Lymph % (Auto) [place] % (Auto) Eos % (Auto) Baso % (Auto) Neut # (Auto) Lymph # (Auto) [place] # (Auto) Eos # (Auto) Baso # (Auto) VBG pH 7.16 L* VBG pCO2 19.5 L VBG pO2 36 VBG HCO3 7 L VBG Total CO2 8 L VBG O2 Saturation 55 L VBG Base Excess -22.0 L Sodium Potassium Chloride Carbon Dioxide BUN Creatinine Estimated GFR BUN/Creatinine Ratio Glucose Hemoglobin A1c Lactate 1.2 Calcium Phosphorus Magnesium Total Bilirubin AST ALT Alkaline Phosphatase Total Protein Albumin Globulin Albumin/Globulin Ratio Procalcitonin Nasal Screen MRSA (PCR) Ketones COVID-19 PCR Negative 01/03/20 01/03/20 01/03/20 18:10 18:50 18:50 WBC RBC Hgb Hct MCV MCH MCHC RDW Plt Count Neut % (Auto) Lymph % (Auto) [place] % (Auto) Eos % (Auto) Baso % (Auto) Neut # (Auto) Lymph # (Auto) [place] # (Auto) Eos # (Auto) Baso # (Auto) VBG pH VBG pCO2 VBG pO2 VBG HCO3 VBG Total CO2 VBG O2 Saturation VBG Base Excess Sodium 139 Potassium 4.0 D Chloride 106 Carbon Dioxide 7 L* BUN 17 Creatinine 0.73 Estimated GFR > 60.0 BUN/Creatinine Ratio 23.3 H Glucose 314 H D Hemoglobin A1c > 14.0 H Lactate Calcium 8.6 Phosphorus 4.2 Magnesium 1.8 Total Bilirubin AST ALT Alkaline Phosphatase Total Protein Albumin Globulin Albumin/Globulin Ratio Procalcitonin Nasal Screen MRSA (PCR) Negative for mrsa Ketones COVID-19 PCR Assessment & Plan Assessment & Plan narrative: This is a 29-year-old female patient with frequent recurrent episodes of diabetic ketoacidosis who returns after being discharged yesterday once again in DKA with no clear triggering event. 1. Acute diabetic ketoacidosis, in uncontrolled diabetes mellitus type 1, present on admission, active. -Hemoglobin A1c >14% since June of 2018 indicative of poor glycemic control likely multifactorial. -patient takes Tresiba 50 mg at 11 a.m., doses reduced from 53 due to symptomatic hypoglycemic episodes at night reporting glucose down to 43. Patient is followed at [facility] clinic for endocrinology. She has no PCP. -Initial blood glucose 602, VBG pH 7.15, HC03 7, base excess -22. Anion gap is 32. COVID-19 negative. WBC normal without shift, procalcitonin negative. -patient given fluid bolus and was started on insulin drip in the emergency department. Will check electrolytes including BMP, magnesium and phos every 4 hours. -when blood sugars less than 200 will start D5-0.45% normal saline at 150 cc/hour and continue until anion gap closes and acidosis improves. -ordered Reglan 10 mg IV every 8 hours as needed for nausea. -requested dietitian consult for persistently elevated hemoglobin A1c over 14 for 18 months. -requested social work evaluation for frequent readmissions (6 admits in 3 months) with additional 3 ER visits. The patient with in frequent contact with [facility] resident clinic for follow-up and has no PCP. Patient also needs formal diabetic Education with close follow-up. 2. Generalized abdominal pain acute, recurrent, present on admission, active -seen in the ER on 12/11/2027 diagnosed with abdominal pain with mesenteric adenitis and urinary tract infection and discharged home. Returns with generalized abdominal pain most prominent right lower quadrant with nausea. -patient received Dilaudid 0.5 mg IV in the ER, ordered Dilaudid 0.5 mg IV every 4 hours as needed for pain. -order Benadryl 25 mg IV as needed for itching 3. Neurogenic bladder secondary to autonomic nerve dysfunction secondary to diabetes, chronic, present on admission, stable -patient with recurrent UTIs last seen on 12/11/2019 treated with Keflex 500 mg by mouth every 6 hours for 7 days. -patient reports no burning, strong urine smell or hematuria in the setting of neurogenic bladder. -ordered repeat urinalysis 4. Scalp wound status post surgical debridement, followed by wound care, Stable. -wound is covered with occlusive dressing, appears clean without tenderness, evidence of redness or drainage. VTE prophylaxis, bilateral SCDs, enoxaparin IV fluid: 1/2 normal saline at 150 cc/hour, when blood sugar less than 200 will change D5 1/2 normal saline at 150 cc per Diet: NPO Code status: FULL CODE, her surrogate decision maker is her nina Gonzales. The patient is admitted as an inpatient to the ICU for with diabetic ketoacidosis on insulin infusion requiring close monitoring and frequent interventions. Critical care time: 45 minutes with over 50% of the time spent in direct [id number] with the patient. Quality VTE Deep Vein Thrombosis/Pulmonary Embolism Present on Admission: No
[2020-01-03 22:36] LABS: Appearance Urine UA CLEAR; Bilirubin Urine UA 2+ (NEGATIVE); Color Urine UA YELLOW; Glucose Urine UA 1+ g/dL (Negative); Ketones Urine UA 3+ (NEGATIVE); Leukocyte Esterase Urine UA NEGATIVE (NEGATIVE); Nitrite Urine UA NEGATIVE (Negative); Occult Blood Urine UA TRACE-LYSED (Negative); Protein Urine UA 1+ (Negative); Urobilinogen Urine UA 0.2 E.U./dL (0.2)
[2020-01-03 23:52] LABS: Phosphorous 3.2 mg/dL (2.5-4.5)
[2020-01-03 23:53] LABS: BUN Creatinine Ratio 27.6 (6-22); Blood Urea Nitrogen 16 mg/dL (7-17); Calcium 8.4 mg/dL (8.4-10.2); Carbon Dioxide 19 mmol/L (22-32); Chloride 109 mmol/L (98-107); Estimated Glomerular Filt Rate > 60.0 mL/min (>60); Glucose 181 mg/dL (70-100); HEMOLYSIS < 15 (0-50); Magnesium 1.6 mg/dL (1.6-2.3); Sodium 137 mmol/L (137-145)
[2020-01-04] VITALS (13 sets, daily range): BP systolic 93–111; BP diastolic 53–66; PULSE 104–112; RESP 7–22; TEMP 36.4–37.1; O2SAT 95–99
[2020-01-04 00:03] LABS: Bacteria Urine Occasional (0-1); Granular Casts Urine 1-5/LPF; Ictotest Urine Negative (Negative); RBC Urine 0-1/HPF (0-5/HPF); Squamous Epithelial Cell Urine 1-5 /HPF (0-5/HPF); WBC Urine 1-5/HPF (0-5/HPF)
[2020-01-04 00:04] LABS: Culture Indicated Urine Cult Not Indicated
[2020-01-04] MEDS: HYDROMORPHONE 0.5 MG INJ IV ×3 (00:15→08:10)
[2020-01-04] MEDS: diphenhydrAMINE 50 MG/ML VIAL 25 MG IV ×2 (01:12→08:10)
[2020-01-04] MEDS: DEXTROSE 5%-0.45% NS 1,000 ML 150 ML IV (03:16)
[2020-01-04 05:08] LABS: Phosphorous 3.5 mg/dL (2.5-4.5)
[2020-01-04 05:10] LABS: BUN Creatinine Ratio 21.4 (6-22); Blood Urea Nitrogen 15 mg/dL (7-17); Calcium 8.4 mg/dL (8.4-10.2); Carbon Dioxide 19 mmol/L (22-32); Chloride 108 mmol/L (98-107); Estimated Glomerular Filt Rate > 60.0 mL/min (>60); Glucose 250 mg/dL (70-100); HEMOLYSIS < 15 (0-50); Potassium 3.3 mmol/L (3.4-5.1); Sodium 137 mmol/L (137-145)
[2020-01-04 05:11] LABS: Magnesium 1.7 mg/dL (1.6-2.3)
[2020-01-04] MEDS: INSULIN DEGLUDEC 50 UNIT 50 EACH SUBCUT (05:14)
--- NOTE | 2020-01-04 05:35 | PC.NURSE ---
medicated with 50 units of tresiba sq per provider order- ( used pt's own ) and verified by 2 RN's prior to administration
[2020-01-04] MEDS: POTASSIUM CHLORIDE 40 MEQ in SODIUM CHLORIDE 0.9% 500 ML 130 ML IV (05:48)
--- NOTE | 2020-01-04 06:27 | PC.NURSE ---
Patient with Q1 hour blood glucose checks throughout the shift. Patient transitioning off of insulin drip (stopping at 0700) and starting patient's long acting insulin, along with sliding scale coverage. Patient requesting PRN pain medication every 4 hours as ordered with complaints of pain on right side of abdomen. Patient tolerated sandwich and PO fluids without complaints of nausea/vomiting. Patient's last blood sugar 261. Patient remains AOx3, has been up to bedside commode to void. IVF d/c, and patient is currently getting a potassium rider. Patient resting comfortably in bed, with fiance present at bedside.
[2020-01-04] MEDS: ACETAMINOPHEN 325 MG TABLET 650 MG PO (08:10)
[2020-01-04] MEDS: DOCUSATE 100 MG CAPSULE PO (08:10)
[2020-01-04 09:52] LABS: BUN Creatinine Ratio 29.7 (6-22); Blood Urea Nitrogen 19 mg/dL (7-17); Calcium 8.5 mg/dL (8.4-10.2); Carbon Dioxide 20 mmol/L (22-32); Chloride 111 mmol/L (98-107); Estimated Glomerular Filt Rate > 60.0 mL/min (>60); Glucose 111 mg/dL (70-100); HEMOLYSIS < 15 (0-50); Potassium 4.3 mmol/L (3.4-5.1); Sodium 138 mmol/L (137-145)
--- NOTE | 2020-01-04 11:25 | CM.DANOTE ---
Addendum entered by RAYMOND Roman 01/04/20 13:23: ADD: Per MD, pt is medically stable to d/c home today and per RN pt still with some pain and p.o. meds ordered. BF Original Note: Patient is a 29 year old female who was admitted on 01/03/20 for DKA. Pt has [employer] for insurance and her PCP is at [facility] in [facility]. EMR was reviewed. Per ED MD, patient with a history significant for poorly controlled type 1 diabetes, frequent admissions for DKA, migraines and irregular menstruation who presents to the ER with complaints of generalized abdominal pain and nausea. She reports checking her blood sugars multiple times daily and has been reading ?high? for last 2-3 days. The patient has been admitted for DKA 3 times in September, 3 times in October once in November with an additional 3 ER visits as well. Her last ER visit was 12/11/2019 with the patient was seen for right lower quadrant abdominal pain. Pt is working with a new specialist physicians at [facility] to get an insulin pump to help reduce the amount of inpatient stays for DM. Pt has seen her specialist physicians once in person and then a TeleHealth visit. Per Hospitalist, will call Quality Review Trainer today to determine if pt can have her as her PCP for now until pt more stabilized and will consult to see if any further recommendations while pt admitted and if labs are stable possible d/c home later today. SW met bedside with pt and explained role and pt confirms that she still currently lives with her boy friend in [place] and plans on D/C home with him when medically stable. Patient seen weekly at the wound care clinic to change dressings of a slow healing scalp wound w/ h/o I+D. Patient is currently independent with all ADL's at base line. Plan: SW to follow for likely plan of d/c home with supportive S.O. and local family later today if remains stable and any further identified needs. RAYMOND Roman Discharge Planning/Care Management CM Discharge Assessment Start: 01/04/20 11:21 Freq: Status: Active Protocol: Document 01/04/20 11:21 BF (Rec: 01/04/20 11:24 BF [id number]) Discharge Planning Assessment Assigned Autopsy Assistant Salud, TENSILE TESTER DPOA/Assigned Designee Name none Advance Directives? No Advance Directives on File No History Provided By Patient,Medical Record Has Patient been admitted in last 30 No days? Prior Living Arrangements House Household Members significant other,family Type of transporation used prior to Drives own vehicle admit Independent with ADL's Yes Is patient alert and oriented? Yes Needs Assistance With Managing Medications Caregiver for Another No Community Services used prior to Wound Care admission: Barriers to Discharge No Comment Has supportive partner and family that live close Discharge Plan Home Community Services Wound Care Transportation Arrangement Significant other can provide transport at d/c. Referrals Initiated None needed Additional Comment Pt goes to [facility] for non-healing scalp wound Whiteboard Updated in Patient Room with Yes name and ext. # of Autopsy Assistant Review Status In Process Please Provide Date Initial DC 01/04/20 Assessment Was Performed Next Review Type Continued Stay Review
[2020-01-04] MEDS: HYDROCODONE/ACET 5/325 TABLET 1 TAB PO (12:50)
[2020-01-04] MEDS: INSULIN ASPART 100 UNIT/ML INSULN PEN SUBCUT (12:50)
--- NOTE | 2020-01-04 13:00 | PC.NURSE ---
1200- Pt placed call light on. Requesting PRN dilaudid. Reviewed with Dr. Arita as pt has d/c to home orders. Reported pt pain level and pain behavior (crying/tearful). Dr. Arita instructs to hold dilaudid and she will enter orders for PO medication. 1230- No orders received. Called to clarify with Dr. Arita. Orders received and implemented. Dr. Arita instructs to proceed with discharge to home.
--- NOTE | 2020-01-04 13:35 | PC.NURSE ---
Pt dc'd to home per MD order. Provided pt/mom dc paperwork. Reviewed meds. Discussed dx, plan of care, importance of glucose checks and insulin administration. Pt verbalizes understanding. Pain behaviors indicate some relief post med administration. Pt displays facial grimacing but is able to get up and walk with a steady gait. She is declining w/c transport to PO. Pt walked to PO escorted by mom and EVALUATION ENGINEER at 1335. Pt had all belongings.
--- NOTE | 2020-01-04 14:47 | P.DS_ITS ---
History of Present Illness History of Present Illness Date Patient Seen: 01/04/20 Chief complaint: nausea,feeling dehydrated Narrative: Ms. Sarabjit Jimenes is a 29-year-old female patient with a history significant for poorly controlled type 1 diabetes, frequent admissions for DKA, migraines and irregular menstruation who presents to the ER with complaints of generalized abdominal pain and nausea. She reports checking her blood sugars multiple times daily and has been reading ?high? for last 2-3 days. The patient has been admitted for DKA 3 times in September, 3 times in October once in November with an additional 3 ER visits as well. Her last ER visit was 12/11/2019 with the patient was seen for right lower quadrant abdominal pain. At that time her blood sugar was found to be 702 without acidosis demonstrating a bicarb of 23 and at at 9 gap of 12. Blood sugars are treated patient was discharged home with a diagnosis of right lower quadrant abdominal pain, mesenteric adenitis and ur inary tract infection. Patient is tonight's symptoms since no fevers or chills and began feeling ill today with recurrent abdominal pain and nausea. She reports that she has been compliant with her medications using Humalog for sliding scale and 50 units of Tresiba daily at 11 am. She states that her Tresiba dose was decreased from 53-15 due to hypoglycemic episodes in the middle the night with blood sugars down to 43 and continues to use uses correctional and mealtime insulin. On checking her blood sugar this evening she reports her glucometer reading high and took 13 units of insulin prior to presenting to the emergency department. She has established care at the [facility] and reports that she has no regular primary care provider. Her hemoglobin A1c has been greater than 14 since June of 2018. She is sexually active and not presently menstruating and previously would have to menstrual cycles per month and was started on which was since and august of this year and has had no menstrual period since. The patient denies any complaints of fevers or chills, rashes or lesions, urinary symptoms or vaginal discharge. She has a scalp wound that is followed at the wound clinic here. She tells me that in a there is plans for surgery early next month for wound closure. She denies complaints of skin rashes or abscesses, flank pain, fevers or chills or known COVID-19 exposure. She reports no chest pain or palpitations, epigastric or abdominal pain pain, nausea or vomiting. She reports no further diarrhea. She has known neurogenic bladder and underwent recent treatment for UTI. She denies further urinary symptoms of burning, foul-smelling urine or hematuria. Upon arrival to the ER the patient had temperature of 99.0?, heart rate of 121, blood pressure 114/75, respirations 22 and oxygen saturation 99%. No imaging was completed. Patient has a white count of 6.6 no shift, hemoglobin of 15.8 and hematocrit of 47.2 with platelets of 349. She has sodium 138 with a potassium of 5.4, chloride of 1 at 0 1 and bicarbonate of less than 5. Her BUN is 19 and creatinine 0.83 with a glucose of 501. She has a total bilirubin 0.9 AST of 29, ALT of 18 elevated alkaline phosphatase of 153. Her albumin is 5.0. On VBG she has a pH of 7.16 and a base excess of -22. She has lactic acid of 1.2, procalcitonin is a negative at less than 0.05 and ketones positive at 16.42. In the ER the patient received Zofran 4 mg Dilaudid 0.5 mg 1 bolus of normal saline and 1 L of 1/2 normal saline and started on insulin drip. Patient is admitted to the medicine service for diabetic ketoacidosis. Discharge Providers Provider Date of admission: 01/03/20 17:56 Discharge Date: 01/04/20 Primary care physician: Jimmy Anderson MD Consults: 01/03/20 21:12 Consult to [employer]NER OUT - [employer] Routine Comment: No PCP, 6 admits/3 mo, non complience RUNNER OUT Consult: [facility] Behavioral Health Assess 01/03/20 21:14 Consult to Dietitian, Adult Routine Comment: A1c greater than 14 for over 1 year Reason For Exam: DKA poor compliance Discharge provider: Gale Arita MD Summary Hospital Course Discharge Diagnosis: 1. Diabetic ketoacidosis, secondary to non adherence to medication 2. Right groin pain Hospital Course: Patient was admitted to the hospital for diabetic ketoacidosis. She was found to be markedly acidotic with a blood sugar of greater than 500. The patient was placed on an insulin drip with complete resolution of her ketoacidosis. Her abdominal pain improved her diet was advanced. She was able to be switched from IV insulin to her usual subcu dosing of insulin. The patient did complain of pain in the groin it she had some shotty adenopathy in the right groin area. Per the patient this had been present for some time. Had the opportunity to speak to the endocrinology office at [facility] regarding her care. Major issues for the patient had to do with medication non adherence. As such they did not recommend any adjustment to her (insulin) medication but rather recommendation for outpatient psychiatric evaluation given her recurrent admissions for diabetic ketoacidosis. Patient's anion gap improved. She was deemed appropriate for discharge and arrangements were made for her to discharge home Status at Discharge Cognitive/behavioral status at discharge: oriented Functional status at discharge: independent ambulation Overall status at discharge: patient is back to baseline Time Spent with Patient Time spent: Less than 30 minutes Exam Vital Signs (past 8 hours): - 01/04/20 07:00 01/04/20 08:00 01/04/20 09:00 Temperature 98.7 F 98.7 F Pulse Rate 109 H 111 H 106 H Respiratory Rate 9 L 12 18 Blood Pressure 96/57 L 111/66 Pulse Oximetry 96 98 01/04/20 12:00 Temperature 98.6 F Pulse Rate 104 H Respiratory Rate 18 Blood Pressure 107/64 Pulse Oximetry 99 Oxygen Delivery Method Room Air Oxygen Flow Rate 0 Narrative Exam Narrative: Frail ill-appearing female Lungs: Clear to auscultation Cardiac exam: Regular rate and rhythm normal S1-S2 Abdomen: Soft nontender nondistended Right groin: Mild shoddy lymphadenopathy noted no palpable firm mass Extremity: No edema Objective Labs Result Diagrams: 01/03/20 16:20 01/04/20 09:30 Labs: Laboratory Results - last 24 hr 01/03/20 01/03/20 01/03/20 16:20 16:20 16:20 WBC 6.6 RBC 4.84 Hgb 15.8 Hct 47.2 H MCV 97.6 MCH 32.7 MCHC 33.5 RDW 13.1 Plt Count 349 Neut % (Auto) 60.5 Lymph % (Auto) 32.4 [place] % (Auto) 5.8 Eos % (Auto) 0.3 L Baso % (Auto) 1.0 Neut # (Auto) 4000 Lymph # (Auto) 2100 [place] # (Auto) 400 Eos # (Auto) 0 Baso # (Auto) 100 VBG pH VBG pCO2 VBG pO2 VBG HCO3 VBG Total CO2 VBG O2 Saturation VBG Base Excess Sodium 138 Potassium 5.4 H Chloride 101 Carbon Dioxide < 5 L* BUN 19 H Creatinine 0.83 Estimated GFR > 60.0 BUN/Creatinine Ratio 22.9 H Glucose 501 H* Hemoglobin A1c Lactate Calcium 9.9 Phosphorus Magnesium Total Bilirubin 0.9 AST 29 ALT 18 Alkaline Phosphatase 153 H Total Protein 8.9 H Albumin 5.0 Globulin 3.9 Albumin/Globulin Ratio 1.3 Procalcitonin < 0.05 Urine Color Urine Appearance Urine pH Ur Specific [place] Urine Protein Urine Glucose (UA) Urine Ketones Urine Occult Blood Urine Nitrate Urine Bilirubin Ur Bilirubin Confirm Urine Urobilinogen Ur Leukocyte Esterase Urine RBC Urine WBC Ur Squamous Epith Cells Urine Bacteria Granular Casts Urine Yeast Ur Culture Indicated? Nasal Screen MRSA (PCR) Ketones 16.42 H COVID-19 PCR 01/03/20 01/03/20 01/03/20 16:20 16:26 17:02 WBC RBC Hgb Hct MCV MCH MCHC RDW Plt Count Neut % (Auto) Lymph % (Auto) [place] % (Auto) Eos % (Auto) Baso % (Auto) Neut # (Auto) Lymph # (Auto) [place] # (Auto) Eos # (Auto) Baso # (Auto) VBG pH 7.16 L* VBG pCO2 19.5 L VBG pO2 36 VBG HCO3 7 L VBG Total CO2 8 L VBG O2 Saturation 55 L VBG Base Excess -22.0 L Sodium Potassium Chloride Carbon Dioxide BUN Creatinine Estimated GFR BUN/Creatinine Ratio Glucose Hemoglobin A1c Lactate 1.2 Calcium Phosphorus Magnesium Total Bilirubin AST ALT Alkaline Phosphatase Total Protein Albumin Globulin Albumin/Globulin Ratio Procalcitonin Urine Color Urine Appearance Urine pH Ur Specific [place] Urine Protein Urine Glucose (UA) Urine Ketones Urine Occult Blood Urine Nitrate Urine Bilirubin Ur Bilirubin Confirm Urine Urobilinogen Ur Leukocyte Esterase Urine RBC Urine WBC Ur Squamous Epith Cells Urine Bacteria Granular Casts Urine Yeast Ur Culture Indicated? Nasal Screen MRSA (PCR) Ketones COVID- PCR Negative 01/03/20 01/03/20 01/03/20 18:10 18:50 18:50 WBC RBC Hgb Hct MCV MCH MCHC RDW Plt Count Neut % (Auto) Lymph % (Auto) [place] % (Auto) Eos % (Auto) Baso % (Auto) Neut # (Auto) Lymph # (Auto) [place] # (Auto) Eos # (Auto) Baso # (Auto) VBG pH VBG pCO2 VBG pO2 VBG HCO3 VBG Total CO2 VBG O2 Saturation VBG Base Excess Sodium 139 Potassium 4.0 D Chloride 106 Carbon Dioxide 7 L* BUN 17 Creatinine 0.73 Estimated GFR > 60.0 BUN/Creatinine Ratio 23.3 H Glucose 314 H D Hemoglobin A1c > 14.0 H Lactate Calcium 8.6 Phosphorus 4.2 Magnesium 1.8 Total Bilirubin AST ALT Alkaline Phosphatase Total Protein Albumin Globulin Albumin/Globulin Ratio Procalcitonin Urine Color Urine Appearance Urine pH Ur Specific [place] Urine Protein Urine Glucose (UA) Urine Ketones Urine Occult Blood Urine Nitrate Urine Bilirubin Ur Bilirubin Confirm Urine Urobilinogen Ur Leukocyte Esterase Urine RBC Urine WBC Ur Squamous Epith Cells Urine Bacteria Granular Casts Urine Yeast Ur Culture Indicated? Nasal Screen MRSA (PCR) Negative for mrsa Ketones COVID-19 PCR 01/03/20 01/03/20 01/03/20 22:22 23:30 23:30 WBC RBC Hgb Hct MCV MCH MCHC RDW Plt Count Neut % (Auto) Lymph % (Auto) [place] % (Auto) Eos % (Auto) Baso % (Auto) Neut # (Auto) Lymph # (Auto) [place] # (Auto) Eos # (Auto) Baso # (Auto) VBG pH VBG pCO2 VBG pO2 VBG HCO3 VBG Total CO2 VBG O2 Saturation VBG Base Excess Sodium 137 Potassium 4.0 Chloride 109 H Carbon Dioxide 19 L BUN 16 Creatinine 0.58 Estimated GFR > 60.0 BUN/Creatinine Ratio 27.6 H Glucose 181 H D Hemoglobin A1c Lactate Calcium 8.4 Phosphorus 3.2 D Magnesium 1.6 Total Bilirubin AST ALT Alkaline Phosphatase Total Protein Albumin Globulin Albumin/Globulin Ratio Procalcitonin Urine Color Yellow Urine Appearance Clear Urine pH 5.0 Ur Specific [place] 1.020 Urine Protein 1+ H Urine Glucose (UA) 1+ H Urine Ketones 3+ H Urine Occult Blood Trace-lysed Urine Nitrate Negative Urine Bilirubin 2+ H Ur Bilirubin Confirm Negative Urine Urobilinogen 0.2 Ur Leukocyte Esterase Negative Urine RBC 0-1/hpf Urine WBC 1-5/hpf Ur Squamous Epith Cells 1-5 /hpf Urine Bacteria Occasional (0-1) Granular Casts 1-5/lpf Urine Yeast 0-1/hpf Ur Culture Indicated? Cult not indicated Nasal Screen MRSA (PCR) Ketones COVID-19 PCR 01/04/20 01/04/20 01/04/20 04:35 04:35 04:35 WBC RBC Hgb Hct MCV MCH MCHC RDW Plt Count Neut % (Auto) Lymph % (Auto) [place] % (Auto) Eos % (Auto) Baso % (Auto) Neut # (Auto) Lymph # (Auto) [place] # (Auto) Eos # (Auto) Baso # (Auto) VBG pH VBG pCO2 VBG pO2 VBG HCO3 VBG Total CO2 VBG O2 Saturation VBG Base Excess Sodium 137 Potassium 3.3 L Chloride 108 H Carbon Dioxide 19 L BUN 15 Creatinine 0.70 Estimated GFR > 60.0 BUN/Creatinine Ratio 21.4 Glucose 250 H Hemoglobin A1c Lactate Calcium 8.4 Phosphorus 3.5 Magnesium 1.7 Total Bilirubin AST ALT Alkaline Phosphatase Total Protein Albumin Globulin Albumin/Globulin Ratio Procalcitonin Urine Color Urine Appearance Urine pH Ur Specific [place] Urine Protein Urine Glucose (UA) Urine Ketones Urine Occult Blood Urine Nitrate Urine Bilirubin Ur Bilirubin Confirm Urine Urobilinogen Ur Leukocyte Esterase Urine RBC Urine WBC Ur Squamous Epith Cells Urine Bacteria Granular Casts Urine Yeast Ur Culture Indicated? Nasal Screen MRSA (PCR) Ketones COVID-19 PCR 01/04/20 09:30 WBC RBC Hgb Hct MCV MCH MCHC RDW Plt Count Neut % (Auto) Lymph % (Auto) [place] % (Auto) Eos % (Auto) Baso % (Auto) Neut # (Auto) Lymph # (Auto) [place] # (Auto) Eos # (Auto) Baso # (Auto) VBG pH VBG pCO2 VBG pO2 VBG HCO3 VBG Total CO2 VBG O2 Saturation VBG Base Excess Sodium 138 Potassium 4.3 Chloride 111 H Carbon Dioxide 20 L BUN 19 H Creatinine 0.64 Estimated GFR > 60.0 BUN/Creatinine Ratio 29.7 H Glucose 111 H D Hemoglobin A1c Lactate Calcium 8.5 Phosphorus Magnesium Total Bilirubin AST ALT Alkaline Phosphatase Total Protein Albumin Globulin Albumin/Globulin Ratio Procalcitonin Urine Color Urine Appearance Urine pH Ur Specific [place] Urine Protein Urine Glucose (UA) Urine Ketones Urine Occult Blood Urine Nitrate Urine Bilirubin Ur Bilirubin Confirm Urine Urobilinogen Ur Leukocyte Esterase Urine RBC Urine WBC Ur Squamous Epith Cells Urine Bacteria Granular Casts Urine Yeast Ur Culture Indicated? Nasal Screen MRSA (PCR) Ketones COVID-19 PCR Discharge Assessment & Plan Assessment and Plan Assessment: 1. Diabetic ketoacidosis 2. Medication non adherence Plan of Treatment: Discharge home Plans for follow-up with Endocrine a and her primary care clinic at [facility] Discharge Plan Discharge Plan Patient Disposition: Home Discharge orders & Medications Prescriptions: Continued glucose 4 gram tablet,chewable 4 gram PO Q15M PRN (Reason: hypoglycemia) Qty: 30 RF: 0 Glucagon Emergency Kit (human) 1 mg recon soln 1 mg subcut DIRECTED RF: 0 insulin degludec 200 unit/mL (3 mL) Insulin Pen 50 unit SUBCUT DAILY RF: 0 hydrocodone-acetaminophen [[place]] 5-325 mg tablet 1 tab PO TID PRN (Reason: pain) Qty: 7 RF: 0 insulin aspart U-100 [Novolog Flexpen U-100 Insulin] 100 unit/mL (3 mL) insulin pen 13 unit SUBCUT AC RF: 0 Follow up/Referrals: Jimmy Anderson MD [Primary Care Provider] - Discharge Health Status Multidrug resistant organism: No MDRO Diet/Activity/Treatments Diet: Carb-consistent/Diabetic Activity: as tolerated Visit Report/Discharge Packet Instructions: DI for Abdominal Pain-Adult, DI for Diabetic Ketoacidosis Visit Report Forms: Patient Portal/API, Stroke Signs & Symptoms Discharge Data Primary Care Provider: Jimmy Anderson Discharges patient from system. Discharge Date/Time: 01/04/20 13:35 Quality VTE Deep Vein Thrombosis/Pulmonary Embolism Present on Admission: No
== END 2020-01-04 13:35 | disposition home or self-care (01) | DRG 639 ==
LOC: ED 16:56 → AC 17:57 → ICU 01-04 07:27
PROVIDERS: Nurse Practitioner Adult Health; Admitting Provider Internal Medicine; Emergency Provider Emergency Medicine; PCP Surgery; Referring Provider Emergency Medicine; Visit Provider Internal Medicine
DX: E10.10 Type 1 diabetes mellitus with ketoacidosis without coma (principal); E10.43 Type 1 diabetes mellitus with diabetic autonomic (poly)neuropathy; N31.8 Other neuromuscular dysfunction of bladder; Z79.4 Long term (current) use of insulin; R10.30 Lower abdominal pain, unspecified; R10.84 Generalized abdominal pain; S01.01XD Laceration without foreign body of scalp, subsequent encounter; Z91.14 Patient's other noncompliance with medication regimen
CPT/HCPCS: 36415; 80048; 80053; 81001; 82009; 82805; 82962; 83036; 83605; 83735; 84100; 84145; 85025; 87040; 87635; 87797; 93005; 93010; 96365; 96375; 96376; 99284; J1170; J1200; J2405; J2765; J3480; J7050

== ENCOUNTER → 2020-01-06 15:08 | Outpatient (CLI) | payer OTHER, MEDICAID, SELFPAY ==
[2020-01-03 18:09] VITALS: BMI 18.3
== END ==
PROVIDERS: PCP Surgery; Referring Provider Surgery; Visit Provider Family Medicine
DX: S01.00XA Unspecified open wound of scalp, initial encounter (principal); E10.65 Type 1 diabetes mellitus with hyperglycemia
CPT/HCPCS: 99213

== ENCOUNTER → 2020-01-13 14:53 | Outpatient (CLI) | payer OTHER, MEDICAID, SELFPAY ==
[2020-01-03 18:09] VITALS: BMI 18.3
== END ==
PROVIDERS: PCP Surgery; Referring Provider Surgery; Visit Provider Family Medicine
DX: S01.00XA Unspecified open wound of scalp, initial encounter (principal); E10.65 Type 1 diabetes mellitus with hyperglycemia
CPT/HCPCS: 99213

== ENCOUNTER 2020-01-16 19:22 | Inpatient (IN) | payer MEDICAID, SELFPAY ==
[2020-01-03 18:09] VITALS: BMI 18.3
[2020-01-16] VITALS (12 sets, daily range): BP systolic 101–133; BP diastolic 53–101; PULSE 117–152; RESP 11–28; TEMP 36.6–36.9; O2SAT 94–100
--- NOTE | 2020-01-16 19:49 | ED.GENADULT ---
HPI - General Adult General Chief complaint: Diabetic Problem Stated complaint: body is hurting, nausea, thinks DKA again Time Seen by Provider: 01/16/20 19:38 Source: patient and family Mode of arrival: Wheelchair Limitations: no limitations History of Present Illness HPI narrative: 29-year-old female who is well known to myself in this department. Is a insulin-dependent diabetic. Has been in DKA multiple times in the past arrives the emergency department today for less than 24 hours of worsening abdominal pain, nausea vomiting, body aches. Patient states that last evening she went to bed feeling fine. Woke up this morning started to not feel very well which progressed as the day went on. She states that she is taking her medications as directed. Has not done anything for her symptoms prior to arrival. Related Data Home Medications Medication Instructions Recorded Confirmed Glucagon Emergency Kit (human) 1 mg SUBCUT DIRECTED 02/16/19 01/03/20 insulin degludec 50 unit SUBCUT DAILY 11/21/19 01/03/20 insulin aspart U-100 [Novolog 13 unit SUBCUT AC 01/03/20 01/03/20 Flexpen U-100 Insulin] Previous Rx's Medication Instructions Recorded glucose 4 gram PO Q15M PRN #30 tab 12/12/18 hydrocodone-acetaminophen [[place]] 1 tab PO TID PRN #7 tab 12/11/19 Allergies Allergy/AdvReac Type Severity Reaction Status Date / Time abdalla [ABDALLA] Allergy Intermediate Hives, Verified 12/11/19 16:55 pruritus iodine [IODINE] Allergy Intermediate rash, itchy Verified 12/11/19 16:55 morphine Allergy Intermediate Difficulty Verified 12/11/19 16:55 Breathing shellfish derived Allergy Intermediate rash Verified 12/11/19 16:55 [SHELLFISH DERIVED] adhesive [ADHESIVE] Allergy Unknown tape Verified 12/11/19 16:55 latex [LATEX] Allergy Unknown Hives Verified 12/11/19 16:55 Review of Systems Constitutional Constitutional: Reports chills, Reports fatigue, Denies fever(s), Reports headache(s), Reports lethargy, Reports malaise and Reports weakness Eyes Eyes: Denies change in vision ENT Ears, Nose, Mouth, and Throat: Denies vertigo, Denies dizziness, Reports headache(s) and Denies sore throat Cardiovascular Cardiovascular: Denies chest pain and Denies dyspnea Respiratory Respiratory: Denies cough and Denies dyspnea Gastrointestinal Gastrointestinal: Reports abdominal pain, Denies change in bowel habits, Reports nausea and Reports vomiting Genitourinary Genitourinary: Denies dysuria Genitourinary: Denies dysuria and Denies vaginal discharge Musculoskeletal Musculoskeletal: Denies arthralgias, Reports myalgias and Reports myalgias Integumentary/Breasts Skin/Breast: Denies lesions and Denies rash Neurologic Neurologic: Denies behavioral changes, Denies confusion, Denies vertigo, Denies dizziness, Reports headache(s) and Reports weakness Psychiatric Psychiatric: Denies behavioral changes and Denies confusion Endocrine Endocrine: Reports fatigue Hematologic/Lymphatic Hematologic/Lymphatic: Denies easy bleeding and Denies easy bruising Allergic/Immunologic Allergic/Immunologic: Denies urticaria Patient History Medical History DKA (diabetic ketoacidoses) (Resolved) History of pyelonephritis (Resolved) Irregular menstrual cycle (Acute) Migraine headache (Chronic) Nephrolithiasis (Resolved) Type 1 diabetes mellitus (Chronic) Surgical History History of ureter stent (Resolved) Hx of local excision of skin lesion (Acute) Status post laser lithotripsy of ureteral calculus (Acute) [place] teeth extracted (Acute) Family History Father In good health Mother Cardiac disease Social History details: Engaged household members: significant other and family Smoking Status: Never smoker alcohol intake: current Smoking Status: Never smoker alcohol intake frequency: 0-2 drinks per day Substance Use Type: does not use Exam Initial Vital Signs Initial Vital Signs: Vital Signs Temperature 97.8 F 01/16/20 19:34 Pulse Rate 127 H 01/16/20 19:34 Respiratory Rate 20 01/16/20 19:34 Blood Pressure 129/93 H 01/16/20 19:34 Pulse Oximetry 100 01/16/20 19:34 Const General: frail appearing and ill appearing Limitations: mental status not altered HENMT Head: normal to inspection and normocephalic Resp Effort & Inspection: not labored and tachypneic Auscultation: clear to auscultation bilaterally Cardio Rate: tachycardic Rhythm: regular rhythm GI Inspection: non-distended Palpation: soft and tender (Generalized tenderness) Back/Spine/Pelvis Back: No CVA tenderness Skin Rashes: no rashes Neuro General: patient alert, patient awake and patient oriented x3 Cognition: normal cognition Speech: speech normal Extrem General: normal to inspection, capillary refill normal and No edema Psych Appearance: disheveled Scores GCS Alex coma scale eye opening: Spontaneous [place] coma scale verbal response: Orientated [place] coma scale motor response: Obey commands Alex coma scale total score: 15 Course Orders Ordered: ED Orders 01/16/20 19:39 Arterial Blood Gas Stat 01/16/20 19:40 Urinalysis and Microscopic Stat EKG-12 Lead Stat 01/16/20 19:41 Urine Drug Screen, Rapid Stat 01/16/20 19:56 Complete Blood Count AUTO DIFF Stat Comprehensive Metabolic Panel Stat Ethanol (ETOH) Stat Ketones (Beta-Hydroxybutyrate) Stat Lactate (Lactic Acid) Stat Lipase Stat Magnesium Stat Phosphorous Stat Test Serum,Qual Stat Procalcitonin Stat VBG [Venous Blood Gas] Stat 01/16/20 20:28 COVID19 -ED/INPAT/OR/L&D Stat 01/16/20 22:00 Blood Culture Stat Acetaminophen (Tylenol) 650 mg PO Q4HR PRN PRN Reason: Fever/Mild Pain (1-3) Bisacodyl (Dulcolax) 10 mg [place] DAILY PRN PRN Reason: Constipation Dextrose (D50w) 25 gm IV PRN PRN PRN Reason: Hypoglycemia Diphenhydramine HCl (Benadryl) 25 mg IV Q4HR PRN PRN Reason: Itching Docusate Sodium (Colace) 100 mg PO BID PRN PRN Reason: Constipation Heparin Sodium (Porcine) (Heparin) 5,000 unit SUBCUT BID BLAISE Hydromorphone HCl (Dilaudid) 0.5 mg IV Q6HR PRN PRN Reason: Pain, Moderate (4-6) Hydromorphone HCl (Dilaudid) 1 mg IV Q6HR PRN PRN Reason: Pain, Severe (7-10) INSULIN DRIP PREMIX (Myxredlin Drip Premix) 100 unit in 100 mls @ 8 mls/hr IV TITRATE BLAISE; Protocol Last Titration: 01/16/20 22:31 Dose: 5 ml/hr, 5 mls/hr Documented by: NAN Cosigned by: LIZZY Admin: 01/16/20 20:57 Dose: 8 ml/hr, 8 mls/hr Documented by: NAN Smalligned by: SHERWIN Sodium Chloride (Normal Saline 0.45%) 1,000 mls @ 200 mls/hr IV CONT BLAISE Last Admin: 01/16/20 21:25 Dose: 200 mls/hr Documented by: NAN Sodium Chloride (Normal Saline 0.45%) 1,000 mls @ 200 mls/hr IV CONT BLAISE Dextrose/Sodium Chloride (Dextrose 5%-0.45% Ns) 1,000 mls @ 150 mls/hr IV CONT PRN PRN Reason: BS<200 Metoclopramide HCl (Reglan) 10 mg IV Q6HR PRN PRN Reason: Nausea And Vomiting Naloxone HCl (Narcan) 0.2 mg IV Q2MIN PRN PRN Reason: Opiate Reversal Sennosides (Senna) 17.2 mg PO BEDTIME PRN PRN Reason: Constipation Discontinued Medications Diphenhydramine HCl (Benadryl) 25 mg IV NOW ONE Stop: 01/16/20 21:06 Last Admin: 01/16/20 21:09 Dose: 25 mg Documented by: NAN Hydromorphone HCl (Dilaudid) 1 mg IV NOW ONE Stop: 01/16/20 19:49 Last Admin: 01/16/20 20:04 Dose: 1 mg Documented by: NAN Hydromorphone HCl (Dilaudid) 1 mg IV NOW ONE Stop: 01/16/20 21:06 Last Admin: 01/16/20 21:10 Dose: 1 mg Documented by: NAN Hydromorphone HCl (Dilaudid) 0.5 mg IV NOW ONE Stop: 01/16/20 23:15 Last Admin: 01/16/20 23:40 Dose: 0.5 mg Documented by: POLI Sodium Chloride (Normal Saline 0.9%) 1,000 mls @ 1,000 mls/hr IV BOLUS ONE Stop: 01/16/20 20:37 Last Infusion: 01/16/20 21:25 Dose: 0 mls/hr Documented by: Admin: 01/16/20 20:04 Dose: 1,000 mls/hr Documented by: NAN INSULIN DRIP PREMIX (Myxredlin Drip Premix) 100 unit in 100 mls @ 6 mls/hr IV TITRATE BLAISE; Protocol Dextrose/Sodium Chloride (Dextrose 5%-0.45% Ns) 1,000 mls @ 150 mls/hr IV CONT BLAISE Ondansetron HCl (Zofran) 4 mg IV NOW ONE Stop: 01/16/20 19:39 Last Admin: 01/16/20 20:03 Dose: 4 mg Documented by: NAN Vital Signs Vital signs: Vital Signs - 8 hr 01/16/20 19:34 01/16/20 20:19 01/16/20 20:30 Temperature 97.8 F Pulse Rate 127 H 121 H 120 H Respiratory Rate 20 11 L 16 Blood Pressure 129/93 H 109/63 Pulse Oximetry 100 97 97 Medical Decision Making Medical Records Medical records reviewed: Yes I reviewed the patient's medical records. Lab Data Lab results reviewed: Yes I reviewed the patient's lab results. Result diagrams: 01/16/20 19:56 01/16/20 23:20 Labs: Lab Results 01/16/20 01/16/20 01/16/20 Range/Units 19:56 19:56 19:56 WBC 6.8 (4.5-11.0) X10^3/uL RBC 4.58 (4.0-5.2) X10^6/uL Hgb 15.0 (12.0-16.0) g/dL Hct 46.0 (36-46) % MCV 100.3 H (80-100) fL MCH 32.8 (26-34) PG MCHC 32.7 (30-36) % RDW 13.5 (11.6-14.8) % Plt Count 475 H (150-400) X10^3/uL Neut % (Auto) 73.8 (50-75) % Lymph % (Auto) 20.4 L (25-40) % [place] % (Auto) 4.4 (3-14) % Eos % (Auto) 0.1 L (2-4) % Baso % (Auto) 1.3 (0-2) % Neut # (Auto) 5100 (3304-6888) /uL Lymph # (Auto) 1400 (3844-4713) /uL [place] # (Auto) 300 (0-900) /uL Eos # (Auto) 0 (0-450) /uL Baso # (Auto) 100 (0-100) /uL VBG pH (7.33-7.43) VBG pCO2 (45-50) mmHg VBG pO2 (35-45) mmHg VBG HCO3 (23-28) mmol/L VBG Total CO2 (24-29) mmol/L VBG O2 Saturation (70-75) % VBG Base Excess (0-4) mmol/L Sodium 128 L (137-145) mmol/L Potassium 6.2 H (3.4-5.1) mmol/L Chloride 89 L (98-107) mmol/L Carbon Dioxide < 5 L* (22-32) mmol/L BUN 18 H (7-17) mg/dL Creatinine 0.81 (0.52-1.04) mg/dL Estimated GFR > 60.0 (>60) mL/min BUN/Creatinine Ratio 22.2 H (6-22) Glucose 1037 H* (70-100) mg/dL Lactate (0.7-2.1) mmol/L Calcium 9.8 (8.4-10.2) mg/dL Phosphorus (2.5-4.5) mg/dL Magnesium (1.6-2.3) mg/dL Total Bilirubin 0.6 (0.2-1.3) mg/dL AST 22 (14-36) IU/L ALT 20 (<35) IU/L Alkaline Phosphatase 190 H (38-126) U/L Total Protein 8.3 H (6.3-8.2) g/dL Albumin 4.9 (3.5-5.0) g/dL Globulin 3.4 (1.7-4.1) g/dL Albumin/Globulin Ratio 1.4 (1.0-2.8) Lipase (23-300) U/L Procalcitonin < 0.05 (<0.5) ng/mL Serum , Qual Negative (Negative) Ethyl Alcohol < 10 ( - 10) mg/dL Ketones (<0.27) mmol/L COVID-19 PCR (Negative) 01/16/20 01/16/20 01/16/20 Range/Units 19:56 19:56 19:56 WBC (4.5-11.0) X10^3/uL RBC (4.0-5.2) X10^6/uL Hgb (12.0-16.0) g/dL Hct (36-46) % MCV (80-100) fL MCH (26-34) PG MCHC (30-36) % RDW (11.6-14.8) % Plt Count (150-400) X10^3/uL Neut % (Auto) (50-75) % Lymph % (Auto) (25-40) % [place] % (Auto) (3-14) % Eos % (Auto) (2-4) % Baso % (Auto) (0-2) % Neut # (Auto) (8169-2242) /uL Lymph # (Auto) (2476-2837) /uL [place] # (Auto) (0-900) /uL Eos # (Auto) (0-450) /uL Baso # (Auto) (0-100) /uL VBG pH 7.24 L (7.33-7.43) VBG pCO2 20.2 L (45-50) mmHg VBG pO2 36 (35-45) mmHg VBG HCO3 9 L (23-28) mmol/L VBG Total CO2 9 L (24-29) mmol/L VBG O2 Saturation 62 L (70-75) % VBG Base Excess -19.0 L (0-4) mmol/L Sodium (137-145) mmol/L Potassium (3.4-5.1) mmol/L Chloride (98-107) mmol/L Carbon Dioxide (22-32) mmol/L BUN (7-17) mg/dL Creatinine (0.52-1.04) mg/dL Estimated GFR (>60) mL/min BUN/Creatinine Ratio (6-22) Glucose (70-100) mg/dL Lactate 1.4 (0.7-2.1) mmol/L Calcium (8.4-10.2) mg/dL Phosphorus 5.9 H (2.5-4.5) mg/dL Magnesium 2.4 H (1.6-2.3) mg/dL Total Bilirubin (0.2-1.3) mg/dL AST (14-36) IU/L ALT (<35) IU/L Alkaline Phosphatase (38-126) U/L Total Protein (6.3-8.2) g/dL Albumin (3.5-5.0) g/dL Globulin (1.7-4.1) g/dL Albumin/Globulin Ratio (1.0-2.8) Lipase 159 (23-300) U/L Procalcitonin (<0.5) ng/mL Serum , Qual (Negative) Ethyl Alcohol ( - 10) mg/dL Ketones 11.85 H (<0.27) mmol/L COVID-19 PCR (Negative) 01/16/20 Range/Units 20:28 WBC (4.5-11.0) X10^3/uL RBC (4.0-5.2) X10^6/uL Hgb (12.0-16.0) g/dL Hct (36-46) % MCV (80-100) fL MCH (26-34) PG MCHC (30-36) % RDW (11.6-14.8) % Plt Count (150-400) X10^3/uL Neut % (Auto) (50-75) % Lymph % (Auto) (25-40) % [place] % (Auto) (3-14) % Eos % (Auto) (2-4) % Baso % (Auto) (0-2) % Neut # (Auto) (4635-7685) /uL Lymph # (Auto) (3939-9641) /uL [place] # (Auto) (0-900) /uL Eos # (Auto) (0-450) /uL Baso # (Auto) (0-100) /uL VBG pH (7.33-7.43) VBG pCO2 (45-50) mmHg VBG pO2 (35-45) mmHg VBG HCO3 (23-28) mmol/L VBG Total CO2 (24-29) mmol/L VBG O2 Saturation (70-75) % VBG Base Excess (0-4) mmol/L Sodium (137-145) mmol/L Potassium (3.4-5.1) mmol/L Chloride (98-107) mmol/L Carbon Dioxide (22-32) mmol/L BUN (7-17) mg/dL Creatinine (0.52-1.04) mg/dL Estimated GFR (>60) mL/min BUN/Creatinine Ratio (6-22) Glucose (70-100) mg/dL Lactate (0.7-2.1) mmol/L Calcium (8.4-10.2) mg/dL Phosphorus (2.5-4.5) mg/dL Magnesium (1.6-2.3) mg/dL Total Bilirubin (0.2-1.3) mg/dL AST (14-36) IU/L ALT (<35) IU/L Alkaline Phosphatase (38-126) U/L Total Protein (6.3-8.2) g/dL Albumin (3.5-5.0) g/dL Globulin (1.7-4.1) g/dL Albumin/Globulin Ratio (1.0-2.8) Lipase (23-300) U/L Procalcitonin (<0.5) ng/mL Serum , Qual (Negative) Ethyl Alcohol ( - 10) mg/dL Ketones (<0.27) mmol/L COVID-19 PCR Negative (Negative) ECG Data Attestation: I personally reviewed and interpreted this ECG as follows: Prior ECG tracings: not available for review Interpretation: Sinus tachycardia Ventricular rate of 123 Normal axis Normal QRS Normal QTC No ST T wave changes MDM Narrative Medical decision making narrative: Patient tachycardic and tachypneic. Labs consistent with DKA with an anion gap of 35. Also a corrected sodium between 140 and 150. Patient has a metabolic acidosis on the VBG with a pH is 7.2. Potassium greater than 6 however has no EKG findings consistent with hyperkalemia. Has generalized abdominal tenderness which is very consistent with her prior episodes of DKA. Patient started on an insulin drip without a bolus. Given her hypernatremia on her corrected sodium she was started on half-normal saline per request of the hospitalist. Her 1st repeat shows that her potassium is improving. Glucose decreasing, anion gap closing. Her insulin drip was slowed due to the drop in glucose. Patient given pain medication. Discussed the case with MARGO Spicer the night hospitalist who will admit for further evaluation and treatment. Critical Care Time Critical Care Time Critical Care Time: Yes Total Critical Care Time: 35 Attestation: The high probability of a clinically significant, sudden or life threatening deterioration of the endocrine system(s) required my full and direct attention, intervention and personal management. The aggregate critical care time was 35 minutes. This time is in addition to time spent performing reported procedures but includes the following: [X] Data Review and interpretation [X] Patient assessment and monitoring of vital signs [X] Documentation [X] Medication orders and management Discharge Plan Departure Patient Disposition: Admitted As Inpatient Clinical Impression: Hyperkalemia DKA (diabetic ketoacidosis) Qualifiers: Diabetes mellitus type: type 1 Diabetes mellitus complication detail: without coma Qualified Code(s): E10.10 - Type 1 diabetes mellitus with ketoacidosis without coma Abdominal pain Qualifiers: Abdominal location: generalized Qualified Code(s): R10.84 - Generalized abdominal pain Discharge Date/Time: 01/16/20 23:41 Referrals: Jimmy Anderson MD [Primary Care Provider] - Admit Date/Time: 01/16/20 20:37 Admit Provider: Julio Cesar Spicer
[2020-01-16] MEDS: ONDANSETRON 4 MG/2 ML INJ IV (20:03)
[2020-01-16] MEDS: SODIUM CHLORIDE 0.9% 1,000 ML 1000 ML IV (20:04)
[2020-01-16] MEDS: HYDROMORPHONE 1 MG INJ IV ×2 (20:04→21:10)
[2020-01-16 20:06] LABS: Add Manual Diff / Slide Review NO; Basophils Absolute Auto 100 /uL (0-100); Basophils Percent Auto 1.3 % (0-2); Eosinophils Absolute Auto 0 /uL (0-450); Eosinophils Percent Auto 0.1 % (2-4); Lymphocytes Absolute Auto 1400 /uL (1100-4500); Lymphocytes Percent Auto 20.4 % (25-40); Mean Corpuscular HGB Conc 32.7 % (30-36); Mean Corpuscular Hemoglobin 32.8 PG (26-34); Mean Corpuscular Volume 100.3 fL (80-100); Monocytes Absolute Auto 300 /uL (0-900); Monocytes Percent Auto 4.4 % (3-14); Neutrophils Absolute Auto 5100 /uL (1500-7000); Neutrophils Percent Auto 73.8 % (50-75); Platelet Count 475 X10^3/uL (150-400); Red Blood Cell Count 4.58 X10^6/uL (4.0-5.2); Red Cell Distribution Width 13.5 % (11.6-14.8); White Blood Cell Count 6.8 X10^3/uL (4.5-11.0)
[2020-01-16 20:12] LABS: HCO3 VBG 9 mmol/L (23-28); PCO2 VBG 20.2 mmHg (45-50); PO2 VBG 36 mmHg (35-45); Total CO2 VBG 9 mmol/L (24-29); pH VBG 7.24 (7.33-7.43)
[2020-01-16 20:13] LABS: Oxygen Saturation VBG 62 % (70-75)
[2020-01-16 20:17] LABS: Alanine Aminotransferase 20 IU/L (<35); Albumin 4.9 g/dL (3.5-5.0); Albumin Globulin Ratio 1.4 (1.0-2.8); Alkaline Phosphatase 190 U/L (38-126); Aspartate Aminotransferase 22 IU/L (14-36); BUN Creatinine Ratio 22.2 (6-22); Bilirubin Total 0.6 mg/dL (0.2-1.3); Blood Urea Nitrogen 18 mg/dL (7-17); Calcium 9.8 mg/dL (8.4-10.2); Chloride 89 mmol/L (98-107); Estimated Glomerular Filt Rate > 60.0 mL/min (>60); Ethanol (ETOH) < 10 mg/dL; Globulin 3.4 g/dL (1.7-4.1); Lipase 159 U/L (23-300); Magnesium 2.4 mg/dL (1.6-2.3); Phosphorous 5.9 mg/dL (2.5-4.5); Sodium 128 mmol/L (137-145); Total Protein 8.3 g/dL (6.3-8.2)
[2020-01-16 20:20] LABS: Ketones (Beta-Hydroxybutyrate) 11.85 mmol/L (<0.27)
[2020-01-16 20:21] LABS: Potassium 6.2 mmol/L (3.4-5.1)
[2020-01-16 20:22] LABS: Lactate (Lactic Acid) 1.4 mmol/L (0.7-2.1)
[2020-01-16 20:24] LABS: HEMOLYSIS 28 (0-50)
[2020-01-16 20:28] LABS: Carbon Dioxide < 5 mmol/L (22-32); Glucose 1037 mg/dL (70-100)
[2020-01-16 20:35] LABS: Procalcitonin < 0.05 ng/mL (<0.5)
[2020-01-16 20:41] LABS: Pregnancy Test Serum,Qual Negative (Negative)
[2020-01-16 20:44] LABS: COVID19 -Nasal RAPID Negative (Negative)
[2020-01-16] MEDS: INSULIN DRIP PREMIX 100 UNIT/100 ML PLAST..BAG 8 UNIT IV (20:57)
[2020-01-16] MEDS: diphenhydrAMINE 50 MG/ML VIAL 25 MG IV (21:09)
[2020-01-16] MEDS: SODIUM CHLORIDE 0.45% 1,000 ML 200 ML IV (21:25)
[2020-01-16 22:25] LABS: BUN Creatinine Ratio 21.7 (6-22); Blood Urea Nitrogen 18 mg/dL (7-17); Calcium 9.1 mg/dL (8.4-10.2); Carbon Dioxide 10 mmol/L (22-32); Chloride 98 mmol/L (98-107); Estimated Glomerular Filt Rate > 60.0 mL/min (>60); HEMOLYSIS < 15 (0-50); Potassium 4.5 mmol/L (3.4-5.1); Sodium 134 mmol/L (137-145)
[2020-01-16 22:34] LABS: Glucose 711 mg/dL (70-100)
--- NOTE | 2020-01-16 23:20 | PM.HP.1 ---
History of Present Illness History of Present Illness Date Patient Seen: 01/16/20 Time Patient Seen: 23:39 Chief complaint: body is hurting, nausea, thinks DKA again Narrative: Ms. Sarabjit Jimenes is a 29-year-old female patient with a history significant for poorly controlled type 1 diabetes, frequent admissions for DKA, migraines and irregular menstruation who presents to the ER with complaints of generalized abdominal pain and nausea. The patient states that she woke this morning with runny nose and sneezing with cold-like symptoms with chills but no fevers. She developed abdominal pain and nausea and had not been eating however she had taken her to see above and checked her blood sugars and found that she was low in the 50s. She drank apple juice with return of blood sugars into the 400s. Blood sugars have been labile throughout day been down. She found that she could not remain hydrated had profound thirst and her sugars were further elevated. The patient has been admitted for DKA 3 times in September, 3 times in October once in November and this is the 2nd admission in December with an additional 3 ER visits as well. She reports that she has been compliant with her medications using Humalog for sliding scale and 50 units of Tresiba daily at 11 am. She has established care at the [facility] and reports that she has no regular primary care provider. Following her previous discharge she call for an appointment was told to wait until she had her scalp lesion close which is planned for January 26. Her hemoglobin A1c has been persistently greater than 14 since June of 2018. She is sexually active and not presently menstruating and previously would have to menstrual cycles per month and was started on which was since and august of this year and has had no menstrual period since. The patient denies any complaints of fevers or chills, rashes or lesions, urinary symptoms or vaginal discharge. She denies complaints of skin rashes or abscesses, flank pain, fevers or chills or known COVID-19 exposure. She reports no chest pain or palpitations, epigastric or abdominal pain pain, nausea or vomiting. She reports no further diarrhea. She has known neurogenic bladder and had previous treatments for UTI. She denies further urinary symptoms of burning, foul-smelling urine or hematuria. Upon arrival to the ER the patient was afebrile with a temperature of 97.8?, heart rate of 127, blood pressure 129/93, respirations of 20 saturating 100% on air. No imaging was obtained patient has white count of 6.8 with a hemoglobin of 0.0 hematocrit 46.0 and platelets of 475. She had notable change in her MCV increasing to 100.3. Her sodium is low 128 however corrected for glucose is 150. Her potassium is elevated at 6 2, chloride 89, CO is less than 5, BUN 18, creatinine 0 8 1. Her nonfasting glucose is 1037. Her magnesium is 2.4 and phosphorus is 5.9. On LFTs are total bilirubin 0 6, AST of 22, ALT of 20 alkaline phosphatase of 190. Her lipase is 159. Procalcitonin is less than 0.05 Serum is negative. On VBG she has a pH 7.2, a bicarb of 9 and a base excess of -19. In the ER the patient is started on insulin infusion, received hydromorphone 0.5 mg x2 and Benadryl 25 mg for itching. She received 1 L of normal saline bolus unchanged over 2-1/2 normal saline at 200 cc/hour. Follow-up laboratory testing team to 10:00 a.m. reveals notable changes for sodium increasing to 134, potassium down to 4.5, CO of 10 and blood sugar down to 711. The patient is admitted to the medicine service for DKA. Patient History Medical History (Updated 01/16/20 @ 20:35 by Chandu Peters DO) DKA (diabetic ketoacidoses) (Resolved) History of pyelonephritis (Resolved) Irregular menstrual cycle (Acute) Migraine headache (Chronic) Nephrolithiasis (Resolved) Type 1 diabetes mellitus (Chronic) Surgical History History of ureter stent (Resolved) Hx of local excision of skin lesion (Acute) Status post laser lithotripsy of ureteral calculus (Acute) [place] teeth extracted (Acute) Family & Social History Family History Father In good health Mother Cardiac disease Social History: household members significant other,family Safety & Behavioral: Feels Safe in Current Yes Environment Been Physically Hurt or No Threatened By a Person Tobacco & Substance use: Smoking Status Never smoker alcohol intake current alcohol intake frequency 0-2 drinks per day Substance Use Type does not use Meds Home Medications and Allergies Home Medications Medication Instructions Recorded Confirmed Type glucose 4 gram PO Q15M PRN #30 tab 12/12/18 01/03/20 Rx Glucagon Emergency Kit (human) 1 mg SUBCUT DIRECTED 02/16/19 01/03/20 History insulin degludec 50 unit SUBCUT DAILY 11/21/19 01/03/20 History hydrocodone-acetaminophen [Debord] 1 tab PO TID PRN #7 tab 12/11/19 01/03/20 Rx insulin aspart U-100 [Novolog 13 unit SUBCUT AC 01/03/20 01/03/20 History Flexpen U-100 Insulin] Allergies Allergy/AdvReac Type Severity Reaction Status Date / Time abdalla [ABDALLA] Allergy Intermediate Hives, Verified 12/11/19 16:55 pruritus iodine [IODINE] Allergy Intermediate rash, itchy Verified 12/11/19 16:55 morphine Allergy Intermediate Difficulty Verified 12/11/19 16:55 Breathing shellfish derived Allergy Intermediate rash Verified 12/11/19 16:55 [SHELLFISH DERIVED] adhesive [ADHESIVE] Allergy Unknown tape Verified 12/11/19 16:55 latex [LATEX] Allergy Unknown Hives Verified 12/11/19 16:55 Review of Systems Review of Systems ROS: Yes All systems reviewed with the patient and are negative except as otherwise documented Exam Vital Signs (past 8 hours): - 01/16/20 19:34 01/16/20 20:19 01/16/20 20:30 Temperature 97.8 F Pulse Rate 127 H 121 H 120 H Respiratory Rate 20 11 L 16 Blood Pressure 129/93 H 109/63 Pulse Oximetry 100 97 97 01/16/20 21:00 01/16/20 21:30 Temperature Pulse Rate 117 H 123 H Respiratory Rate 17 11 L Blood Pressure 122/73 106/59 L Pulse Oximetry 100 96 Oxygen Delivery Method Room Air Narrative Exam Narrative: GENERAL APPEARANCE: well developed, underweight female, who is it ill-appearing. HEENT: Occlusive dressing covering approximately 1.5 cm scalp lesion without redness swelling or drainage, PERRLA, conjunctiva clear, EOMs intact without nystagmus, no sinus tenderness to percussion, no rhinorrhea, mucous membranes are dry and pink without lesions or exudate. NECK/THYROID: neck supple, nontender trachea midline. LYMPH NODES: no cervical or supraclavicular lymphadenopathy. SKIN: [place], warm and dry, chronic skin wound without drainage or erythema. HEART: Tachycardia with regular rhythm, S1-S2, no murmur, no rubs or gallops, brisk capillary refill, no edema LUNGS: clear to auscultation bilaterally, no coarseness crackles or wheezing, no cough present CHEST: Symmetrical movement, no accessory muscle use, good tidal volume. ABDOMEN: Soft, no distention, general abdominal tenderness greatest in right lower quadrant, no organomegaly, no flank or suprapubic tenderness, active bowel tones. BACK: Normal curvature, nontender to palpation, no CVA tenderness on percussion EXTREMITIES: moves all extremities, strength is 5/5 and symmetrical, no deformities or joint effusions. NEUROLOGIC: AAO x4, no focal neurologic deficits, cranial nerves II-XII grossly intact, sensation intact to light touch, hearing grossly normal to speech. PSYCH: Good eye contact, cooperative, intermittently tearful. Objective Labs Result Diagrams: 01/16/20 19:56 01/16/20 22:00 Labs: Laboratory Results - last 24 hr 01/16/20 01/16/20 01/16/20 19:56 19:56 19:56 WBC 6.8 RBC 4.58 Hgb 15.0 Hct 46.0 MCV 100.3 H MCH 32.8 MCHC 32.7 RDW 13.5 Plt Count 475 H Neut % (Auto) 73.8 Lymph % (Auto) 20.4 L Dewitt % (Auto) 4.4 Eos % (Auto) 0.1 L Baso % (Auto) 1.3 Neut # (Auto) 5100 Lymph # (Auto) 1400 Dewitt # (Auto) 300 Eos # (Auto) 0 Baso # (Auto) 100 VBG pH VBG pCO2 VBG pO2 VBG HCO3 VBG Total CO2 VBG O2 Saturation VBG Base Excess Sodium 128 L Potassium 6.2 H Chloride 89 L Carbon Dioxide < 5 L* BUN 18 H Creatinine 0.81 Estimated GFR > 60.0 BUN/Creatinine Ratio 22.2 H Glucose 1037 H* Lactate Calcium 9.8 Phosphorus Magnesium Total Bilirubin 0.6 AST 22 ALT 20 Alkaline Phosphatase 190 H Total Protein 8.3 H Albumin 4.9 Globulin 3.4 Albumin/Globulin Ratio 1.4 Lipase Procalcitonin < 0.05 Serum , Qual Negative Ethyl Alcohol < 10 Ketones COVID-19 PCR 01/16/20 01/16/20 01/16/20 19:56 19:56 19:56 WBC RBC Hgb Hct MCV MCH MCHC RDW Plt Count Neut % (Auto) Lymph % (Auto) Dewitt % (Auto) Eos % (Auto) Baso % (Auto) Neut # (Auto) Lymph # (Auto) Dewitt # (Auto) Eos # (Auto) Baso # (Auto) VBG pH 7.24 L VBG pCO2 20.2 L VBG pO2 36 VBG HCO3 9 L VBG Total CO2 9 L VBG O2 Saturation 62 L VBG Base Excess -19.0 L Sodium Potassium Chloride Carbon Dioxide BUN Creatinine Estimated GFR BUN/Creatinine Ratio Glucose Lactate 1.4 Calcium Phosphorus 5.9 H Magnesium 2.4 H Total Bilirubin AST ALT Alkaline Phosphatase Total Protein Albumin Globulin Albumin/Globulin Ratio Lipase 159 Procalcitonin Serum , Qual Ethyl Alcohol Ketones 11.85 H COVID-19 PCR 01/16/20 01/16/20 20:28 22:00 WBC RBC Hgb Hct MCV MCH MCHC RDW Plt Count Neut % (Auto) Lymph % (Auto) Dewitt % (Auto) Eos % (Auto) Baso % (Auto) Neut # (Auto) Lymph # (Auto) Dewitt # (Auto) Eos # (Auto) Baso # (Auto) VBG pH VBG pCO2 VBG pO2 VBG HCO3 VBG Total CO2 VBG O2 Saturation VBG Base Excess Sodium 134 L Potassium 4.5 D Chloride 98 Carbon Dioxide 10 L BUN 18 H Creatinine 0.83 Estimated GFR > 60.0 BUN/Creatinine Ratio 21.7 Glucose 711 H* Lactate Calcium 9.1 Phosphorus Magnesium Total Bilirubin AST ALT Alkaline Phosphatase Total Protein Albumin Globulin Albumin/Globulin Ratio Lipase Procalcitonin Serum , Qual Ethyl Alcohol Ketones COVID-19 PCR Negative Assessment & Plan Assessment & Plan narrative: This is a 29-year-old female patient with frequent recurrent episodes of diabetic ketoacidosis who presents with no clear triggering event. 1. Acute diabetic ketoacidosis, in uncontrolled diabetes mellitus type 1, present on admission, active. -Hemoglobin A1c >14% since June of 2018 indicative of poor glycemic control likely multifactorial. -patient takes Tresiba 50 mg at 11 a.m., doses reduced from 50 due to symptomatic hypoglycemic episodes at night reporting glucose down to 43. Patient is followed at [facility] present clinic for endocrinology. She has no PCP. -Initial blood glucose 1037,, VBG pH 7.24, HC03 is 9, base excess -19. Anion gap is 34. COVID-19 negative. WBC normal without shift, procalcitonin negative, will obtain a urinalysis -patient given fluid bolus and was started on insulin drip in the emergency department. Will check electrolytes including BMP, magnesium and phos every 4 hours. -when blood sugars less than 200 will start D5-0.45% normal saline at 150 cc/hour and continue until anion gap closes and acidosis improves. -ordered Reglan 10 mg IV every 8 hours as needed for nausea. -requested dietitian consult for persistently elevated hemoglobin A1c over 14 for 18 months. -requested social work evaluation for frequent readmissions (6 admits in 3 months) with additional 3 ER visits and behavioral noncompliance. The patient with in frequent contact with [facility] resident clinic for follow-up and has no PCP. Patient also needs formal diabetic Education with close follow-up. 2. Generalized abdominal pain acute, recurrent, present on admission, active -generalized abdominal pain most prominent right lower quadrant with nausea consistent with prior presentation for gastroparesis. -patient received Dilaudid 0.5 mg IV in the ER, ordered Dilaudid 0.5 mg IV every 4 hours as needed for pain. -order Benadryl 25 mg IV as needed for itching 3. Neurogenic bladder secondary to autonomic nerve dysfunction secondary to diabetes, chronic, present on admission, stable -patient with recurrent UTIs last seen on 12/11/2019 treated with Keflex 500 mg by mouth every 6 hours for 7 days. -patient reports no burning, strong urine smell or hematuria in the setting of neurogenic bladder. -ordered repeat urinalysis 4. Scalp wound status post surgical debridement, followed by wound care, Stable. -wound is covered with occlusive dressing, appears clean without tenderness, evidence of redness or drainage. VTE prophylaxis, bilateral SCDs, enoxaparin IV fluid: 1/2 normal saline at 200 cc/hour, when blood sugar less than 200 will change D5 1/2 normal saline at 150 cc per Diet: NPO Code status: FULL CODE, her surrogate decision maker is her nina Gonzales. The patient is admitted as an inpatient to the ICU for with diabetic ketoacidosis on insulin infusion requiring close monitoring and frequent interventions. Critical care time: 40 minutes with over 50% of the time spent in direct [id number] with the patient. Scores GCS Alex coma scale eye opening: Spontaneous Grady coma scale verbal response: Orientated Alex coma scale motor response: Obey commands Alex coma scale total score: 15
[2020-01-16 23:37] LABS: Blood Urea Nitrogen 18 mg/dL (7-17); Calcium 9.4 mg/dL (8.4-10.2); Carbon Dioxide 15 mmol/L (22-32); Chloride 98 mmol/L (98-107); Estimated Glomerular Filt Rate > 60.0 mL/min (>60); HEMOLYSIS < 15 (0-50); Potassium 4.7 mmol/L (3.4-5.1); Sodium 136 mmol/L (137-145)
[2020-01-16 23:40] LABS: Glucose 544 mg/dL (70-100)
[2020-01-16] MEDS: HYDROMORPHONE 0.5 MG INJ IV (23:40)
[2020-01-17] MEDS: diphenhydrAMINE 50 MG/ML VIAL 25 MG IV ×3 (00:59→08:37)
[2020-01-17 01:38] LABS: Bacteria Urine None Seen; RBC Urine None Seen (0-5/HPF); WBC Urine None Seen (0-5/HPF)
[2020-01-17 01:41] LABS: Appearance Urine UA CLEAR; Bilirubin Urine UA NEGATIVE (NEGATIVE); Color Urine UA YELLOW; Glucose Urine UA 3+ g/dL (Negative); Ketones Urine UA 3+ (NEGATIVE); Leukocyte Esterase Urine UA NEGATIVE (NEGATIVE); Nitrite Urine UA NEGATIVE (Negative); Occult Blood Urine UA NEGATIVE (Negative); Protein Urine UA NEGATIVE (Negative); Urobilinogen Urine UA 0.2 E.U./dL (0.2)
[2020-01-17 01:46] LABS: UR Morphine/Opiate cutoff 300 Negative (Negative); Ur Creatinine NEG (Normal); Ur Specific Gravity 1.015 (Normal); Urine Amphetamines Negative (Negative); Urine Barbiturates Negative (Negative); Urine Benzodiazepines Negative (Negative); Urine Cocaine Negative (Negative); Urine MDMA Negative (Negative); Urine Methadone Negative (Negative); Urine Methamphetamines Negative (Negative); Urine Oxycodone Negative (Negative); Urine Phencyclidine Negative (Negative); Urine Tetrahydrocannabinol Negative (Negative); Urine Tricyclic Antidepressant Negative (Negative); Urine pH 5 (Normal)
[2020-01-17 01:52] LABS: Culture Indicated Urine Cult Not Indicated; Squamous Epithelial Cell Urine 1-5 /HPF (0-5/HPF)
[2020-01-17 01:55] VITALS: BMI 17.6
[2020-01-17 02:18] LABS: BUN Creatinine Ratio 22.4 (6-22); Blood Urea Nitrogen 17 mg/dL (7-17); Calcium 9.4 mg/dL (8.4-10.2); Carbon Dioxide 23 mmol/L (22-32); Chloride 101 mmol/L (98-107); Estimated Glomerular Filt Rate > 60.0 mL/min (>60); Glucose 166 mg/dL (70-100); HEMOLYSIS < 15 (0-50); Magnesium 1.9 mg/dL (1.6-2.3); Phosphorous 3.5 mg/dL (2.5-4.5); Potassium 3.7 mmol/L (3.4-5.1); Sodium 138 mmol/L (137-145)
[2020-01-17] MEDS: DEXTROSE 5%-0.45% NS 1,000 ML 150 ML IV (02:19)
[2020-01-17 02:43] LABS: Adenovirus Not Detected (Not Detect); Bordetella pertussis Not Detected (Not Detect); Chlamydophila pneumoniae Not Detected (Not Detect); Coronavirus 229E Not Detected (Not Detect); Coronavirus HKU1 Not Detected (Not Detect); Coronavirus NL 63 Not Detected (Not Detect); Coronavirus OC43 Not Detected (Not Detect); Human Metapneumovirus Not Detected (Not Detect); Human Rhinovirus/Enterovirus Not Detected (Not Detect); Influenza A Not Detected (Not Detect); Influenza B Not Detected (Not Detect); Mycoplasma pneumoniae Not Detected (Not Detect); Parainfluenza Virus 1 Not Detected (Not Detect); Parainfluenza Virus 2 Not Detected (Not Detect); Parainfluenza Virus 3 Not Detected (Not Detect); Parainfluenza Virus 4 Not Detected (Not Detect); Respiratory Syncytial Virus Not Detected (Not Detect)
[2020-01-17 03:00] VITALS: BP 112/61; PULSE 122; RESP 18; TEMP 36.8; O2SAT 97
[2020-01-17] MEDS: TRAMADOL 50 MG TABLET PO (05:18)
[2020-01-17 06:38] LABS: Add Manual Diff / Slide Review NO; Basophils Absolute Auto 100 /uL (0-100); Basophils Percent Auto 1.1 % (0-2); Eosinophils Absolute Auto 0 /uL (0-450); Eosinophils Percent Auto 0.4 % (2-4); Hematocrit 36.8 % (36-46); Hemoglobin 12.8 g/dL (12.0-16.0); Lymphocytes Absolute Auto 2500 /uL (1100-4500); Lymphocytes Percent Auto 34.1 % (25-40); Mean Corpuscular HGB Conc 34.9 % (30-36); Mean Corpuscular Hemoglobin 32.6 PG (26-34); Mean Corpuscular Volume 93.5 fL (80-100); Monocytes Absolute Auto 800 /uL (0-900); Monocytes Percent Auto 11.2 % (3-14); Neutrophils Absolute Auto 3900 /uL (1500-7000); Neutrophils Percent Auto 53.2 % (50-75); Platelet Count 387 X10^3/uL (150-400); Red Blood Cell Count 3.94 X10^6/uL (4.0-5.2); Red Cell Distribution Width 13.2 % (11.6-14.8); White Blood Cell Count 7.3 X10^3/uL (4.5-11.0)
[2020-01-17 06:46] LABS: BUN Creatinine Ratio 22.7 (6-22); Blood Urea Nitrogen 15 mg/dL (7-17); Calcium 9.1 mg/dL (8.4-10.2); Carbon Dioxide 27 mmol/L (22-32); Chloride 102 mmol/L (98-107); Estimated Glomerular Filt Rate > 60.0 mL/min (>60); Glucose 155 mg/dL (70-100); HEMOLYSIS < 15 (0-50); Potassium 3.9 mmol/L (3.4-5.1); Sodium 137 mmol/L (137-145)
[2020-01-17] MEDS: TRESIBA 50 EACH SUBCUT (06:53)
[2020-01-17 07:00] VITALS: BP 110/56; PULSE 120; RESP 17; TEMP 36.7; O2SAT 96
--- NOTE | 2020-01-17 07:44 | PC.NURSE ---
Admit/Hot Top Liner Note-Patient brought to Room 231 at 2335, drowsy, crying but oriented x4, insulin gtt infusing at 5 units/hr, titrated per DKA protocol, see flow sheet and Emar. Medicated with IV Dilaudid upon admit which caused intense puritis, total of 50mg IV Benadryl given, slow to take effect, no hives, rashes, or shortness of breath, SpO2 98% on RA, breath sounds CTA. ST rate 140s until 0300, then down to 115. BP stable, afebrile. Voided 1300ml at admit, UAC sent. Tramodol given at 0500, IV Dilaudid DC'd. Patient's own 50 units Tresiba given at 0700, she is eating without N/V. IVF and insulin to be DC'd 1 hour afterward.
[2020-01-17 08:18] VITALS: PULSE 122; RESP 18; O2SAT 99
[2020-01-17] MEDS: SODIUM CHLORIDE 0.9% 1,000 ML 150 ML IV (08:19)
[2020-01-17] MEDS: SODIUM CHLORIDE 0.9% 1,000 ML 500 ML IV ×2 (08:31→10:32)
[2020-01-17] MEDS: INSULIN ASPART 100 UNIT/ML INSULN PEN 10 UNIT SUBCUT ×2 (08:32→12:08)
[2020-01-17] MEDS: INSULIN ASPART 100 UNIT/ML INSULN PEN SUBCUT ×2 (08:33→12:08)
[2020-01-17] MEDS: HEPARIN 5,000 UNIT/ML VIAL 5000 UNIT SUBCUT (08:35)
[2020-01-17] MEDS: SODIUM CHLORIDE 0.9% FLUSH 10 ML IV (08:36)
--- NOTE | 2020-01-17 10:51 | CM.DANOTE ---
Patient is a 29 year old female who was admitted on 01/16/20 for DKA. Pt has [employer] and [employer]ENE for insurance and her PCP is at [facility] in [facility]. EMR was reviewed. Per ED MD, patient with a history significant for poorly controlled type 1 diabetes, frequent admissions for DKA, migraines and irregular menstruation who presents to the ER with complaints of generalized abdominal pain and nausea. She reports checking her blood sugars multiple times daily and has been reading ?high? for last 2-3 days. The patient has been admitted for DKA 3 times in September, 3 times in October and once in November with an additional 3 ER visits as well. Her last admission to [facility] was on 01/03/20 for DKA and abdominal pain. Pt is working with a new executive director sheltered workshop at [facility] to get an insulin pump to help reduce the amount of inpatient stays for DM. Pt has seen her executive director sheltered workshop once in person and then a TeleHealth visit. At last admission a couple weeks ago Hospitalist planned to call Quality Improvement Engineer to determine if pt can have her as her PCP for now until pt more stabilized. Per MD, pt's DKA seems to have resolved today although pt still quite tearful from body pains and aches. Pt may be stable for d/c home later today. SW met bedside with pt and explained role and pt confirms that she still currently lives with her boy friend in [place] and plans on D/C home with him when medically stable and has local supportive parents that she sees regularly. Patient seen weekly at the wound care clinic to change dressings of a slow healing scalp wound w/ h/o I+D. Patient is currently independent with all ADL's at base line. Pt quite tearful during bedside assessment and SW inquired about pt's tears and pt states it is due from the chronic medical condition and pain. SW inquired if pt has followed through with any of the recommendations or resources for counseling especially due to chronic medical condition and frequent admissions to the hospital. Pt acknowledges understanding but declines seeking further counseling support or resources. Plan: SW to follow closely for possible d/c home later today via family POV and any further identified discharge planning needs. RAYMOND Roman Discharge Planning/Care Management CM Discharge Assessment Start: 01/17/20 10:50 Freq: Status: Active Protocol: Document 01/17/20 10:50 BF (Rec: 01/17/20 10:51 BF [id number]) Discharge Planning Assessment Assigned Consulting Software Engineer RAYMOND Brannon DPOA/Assigned Designee Name none Advance Directives? No Advance Directives on File No History Provided By Patient,Medical Record Has Patient been admitted in last 30 Yes days? Prior Living Arrangements House Household Members significant other,family Type of transporation used prior to Drives own vehicle admit Independent with ADL's Yes Is patient alert and oriented? Yes Needs Assistance With Managing Medications Caregiver for Another No Community Services used prior to Wound Care admission: Barriers to Discharge No Comment Has supportive partner and family that live close Discharge Plan Home Transportation Arrangement Significant other can provide transport at d/c. Referrals Initiated None needed Additional Comment Pt goes to [facility] for non-healing scalp wound Whiteboard Updated in Patient Room with Yes name and ext. # of Consulting Software Engineer Review Status In Process Please Provide Date Initial DC 01/17/20 Assessment Was Performed Next Review Type Continued Stay Review
[2020-01-17 11:00] VITALS: BP 112/70; PULSE 105; RESP 17; TEMP 37.2; O2SAT 97
[2020-01-17] MEDS: HYDROMORPHONE 0.5 MG INJ IV (12:08)
--- NOTE | 2020-01-17 12:54 | PM.DS.1 ---
History of Present Illness History of Present Illness Chief complaint: body is hurting, nausea, thinks DKA again Narrative: Ms. Sarabjit Jimenes is a 29-year-old female patient with a history significant for poorly controlled type 1 diabetes, frequent admissions for DKA, migraines and irregular menstruation who presents to the ER with complaints of generalized abdominal pain and nausea. The patient states that she woke this morning with runny nose and sneezing with cold-like symptoms with chills but no fevers. She developed abdominal pain and nausea and had not been eating however she had taken her to see above and checked her blood sugars and found that she was low in the 50s. She drank apple juice with return of blood sugars into the 400s. Blood sugars have been labile throughout day been down. She found that she could not remain hydrated had profound thirst and her sugars were further elevated. The patient has been admitted for DKA 3 times in September, 3 times in October once in November and this is the 2nd admission in December with an additional 3 ER visits as well. She reports that she has been compliant with her medications using Humalog for sliding scale and 50 units of Tresiba daily at 11 am. She has established care at the [facility] and reports that she has no regular primary care provider. Following her previous discharge she call for an appointment was told to wait until she had her scalp lesion close which is planned for January 26. Her hemoglobin A1c has been persistently greater than 14 since June of 2018. She is sexually active and not presently menstruating and previously would have to menstrual cycles per month and was started on which was since and august of this year and has had no menstrual period since. The patient denies any complaints of fevers or chills, rashes or lesions, urinary symptoms or vaginal discharge. She denies complaints of skin rashes or abscesses, flank pain, fevers or chills or known COVID-19 exposure. She reports no chest pain or palpitations, epigastric or abdominal pain pain, nausea or vomiting. She reports no further diarrhea. She has known neurogenic bladder and had previous treatments for UTI. She denies further urinary symptoms of burning, foul-smelling urine or hematuria. Upon arrival to the ER the patient was afebrile with a temperature of 97.8?, heart rate of 127, blood pressure 129/93, respirations of 20 saturating 100% on air. No imaging was obtained patient has white count of 6.8 with a hemoglobin of 0.0 hematocrit 46.0 and platelets of 475. She had notable change in her MCV increasing to 100.3. Her sodium is low 128 however corrected for glucose is 150. Her potassium is elevated at 6 2, chloride 89, CO is less than 5, BUN 18, creatinine 0 8 1. Her nonfasting glucose is 1037. Her magnesium is 2.4 and phosphorus is 5.9. On LFTs are total bilirubin 0 6, AST of 22, ALT of 20 alkaline phosphatase of 190. Her lipase is 159. Procalcitonin is less than 0.05 Serum is negative. On VBG she has a pH 7.2, a bicarb of 9 and a base excess of -19. In the ER the patient is started on insulin infusion, received hydromorphone 0.5 mg x2 and Benadryl 25 mg for itching. She received 1 L of normal saline bolus unchanged over 2-1/2 normal saline at 200 cc/hour. Follow-up laboratory testing team to 10:00 a.m. reveals notable changes for sodium increasing to 134, potassium down to 4.5, CO of 10 and blood sugar down to 711. The patient is admitted to the medicine service for DKA. Discharge Providers Provider Date of admission: 01/16/20 20:37 Discharge Date: 01/17/20 Primary care physician: Jimmy Anderson MD Consults: 01/16/20 22:49 Consult to [facility] Routine Comment: Recurrent admission for DKA, noncompliance [facility] Consult: Behavioral Health Assess 01/16/20 22:53 Consult to Dietitian, Adult Routine Comment: Reason For Exam: Diabetes, Dietary noncompliance, A1c >14 Discharge provider: Pedro Servin MD Summary Hospital Course Discharge Diagnosis: 1. Diabetic ketoacidosis 2. Urinary yeast without UTI Patient admitted due to recurrent DKA. Glucose was above 1000 on admission, venous pH 7.24, positive urinary ketones. Patient was treated in standard fashion with volume resuscitation and insulin drip. Anion gap metabolic acidosis was resolved by the following morning. At time of discharge patient is tolerating normal diet off of insulin drip, is back on her routine insulin, with glucose values in 150 range. She will follow-up at [facility] where she is currently having medications refilled. She will continue efforts to establish with Endocrinology. Exam Vital Signs (past 8 hours): - 01/17/20 07:00 01/17/20 08:18 01/17/20 11:00 Temperature 98.1 F 98.9 F Pulse Rate 120 H 122 H 105 H Respiratory Rate 17 18 17 Blood Pressure 110/56 L 112/70 Pulse Oximetry 96 99 97 Oxygen Delivery Method Room Air Oxygen Flow Rate 0 Objective Labs Result Diagrams: 01/17/20 06:15 01/17/20 06:15 Labs: Laboratory Results - last 24 hr 01/16/20 01/16/20 01/16/20 19:56 19:56 19:56 WBC 6.8 RBC 4.58 Hgb 15.0 Hct 46.0 MCV 100.3 H MCH 32.8 MCHC 32.7 RDW 13.5 Plt Count 475 H Neut % (Auto) 73.8 Lymph % (Auto) 20.4 L [place] % (Auto) 4.4 Eos % (Auto) 0.1 L Baso % (Auto) 1.3 Neut # (Auto) 5100 Lymph # (Auto) 1400 [place] # (Auto) 300 Eos # (Auto) 0 Baso # (Auto) 100 VBG pH VBG pCO2 VBG pO2 VBG HCO3 VBG Total CO2 VBG O2 Saturation VBG Base Excess Sodium 128 L Potassium 6.2 H Chloride 89 L Carbon Dioxide < 5 L* BUN 18 H Creatinine 0.81 Estimated GFR > 60.0 BUN/Creatinine Ratio 22.2 H Glucose 1037 H* Lactate Calcium 9.8 Phosphorus Magnesium Total Bilirubin 0.6 AST 22 ALT 20 Alkaline Phosphatase 190 H Total Protein 8.3 H Albumin 4.9 Globulin 3.4 Albumin/Globulin Ratio 1.4 Lipase Procalcitonin < 0.05 Serum , Qual Negative Urine Color Urine Appearance Urine pH Ur Specific [place] Urine Protein Urine Glucose (UA) Urine Ketones Urine Occult Blood Urine Nitrate Urine Bilirubin Urine Urobilinogen Ur Leukocyte Esterase Urine RBC Urine WBC Ur Squamous Epith Cells Urine Bacteria Urine Yeast Ur Culture Indicated? Nasal Screen MRSA (PCR) U Opiates 300ng/mL cut Ur Oxycodone Screen Urine Methadone Screen Ur Barbiturates Screen U Tricyclic Antidepress Ur Phencyclidine Scrn Ur Amphetamines Screen U Methamphetamines Scrn Ur MDMA Scrn (Ecstasy) U Benzodiazepines Scrn Urine Cocaine Screen U Marijuana (THC) Screen Ethyl Alcohol < 10 Ketones Chlamy pneumoniae PCR Adenovirus (PCR) B.parapertussis DNA PCR Coronavirus OC43 (PCR) Coronavirus HKU1 (PCR) Coronavirus 229E (PCR) COVID-19 PCR Coronavirus NL63 (PCR) Human Metapneumovir PCR Influenza Type A (PCR) Influenza Type B (PCR) M. pneumoniae (PCR) Parainfluenza 1 (PCR) Parainfluenza 2 (PCR) Parainfluenza 3 (PCR) Parainfluenza 4 (PCR) RSV (PCR) Entero/Rhino (PCR) 01/16/20 01/16/20 01/16/20 19:56 19:56 19:56 WBC RBC Hgb Hct MCV MCH MCHC RDW Plt Count Neut % (Auto) Lymph % (Auto) [place] % (Auto) Eos % (Auto) Baso % (Auto) Neut # (Auto) Lymph # (Auto) [place] # (Auto) Eos # (Auto) Baso # (Auto) VBG pH 7.24 L VBG pCO2 20.2 L VBG pO2 36 VBG HCO3 9 L VBG Total CO2 9 L VBG O2 Saturation 62 L VBG Base Excess -19.0 L Sodium Potassium Chloride Carbon Dioxide BUN Creatinine Estimated GFR BUN/Creatinine Ratio Glucose Lactate 1.4 Calcium Phosphorus 5.9 H Magnesium 2.4 H Total Bilirubin AST ALT Alkaline Phosphatase Total Protein Albumin Globulin Albumin/Globulin Ratio Lipase 159 Procalcitonin Serum , Qual Urine Color Urine Appearance Urine pH Ur Specific [place] Urine Protein Urine Glucose (UA) Urine Ketones Urine Occult Blood Urine Nitrate Urine Bilirubin Urine Urobilinogen Ur Leukocyte Esterase Urine RBC Urine WBC Ur Squamous Epith Cells Urine Bacteria Urine Yeast Ur Culture Indicated? Nasal Screen MRSA (PCR) U Opiates 300ng/mL cut Ur Oxycodone Screen Urine Methadone Screen Ur Barbiturates Screen U Tricyclic Antidepress Ur Phencyclidine Scrn Ur Amphetamines Screen U Methamphetamines Scrn Ur MDMA Scrn (Ecstasy) U Benzodiazepines Scrn Urine Cocaine Screen U Marijuana (THC) Screen Ethyl Alcohol Ketones 11.85 H Chlamy pneumoniae PCR Adenovirus (PCR) B.parapertussis DNA PCR Coronavirus OC43 (PCR) Coronavirus HKU1 (PCR) Coronavirus 229E (PCR) COVID-19 PCR Coronavirus NL63 (PCR) Human Metapneumovir PCR Influenza Type A (PCR) Influenza Type B (PCR) M. pneumoniae (PCR) Parainfluenza 1 (PCR) Parainfluenza 2 (PCR) Parainfluenza 3 (PCR) Parainfluenza 4 (PCR) RSV (PCR) Entero/Rhino (PCR) 01/16/20 01/16/20 01/16/20 20:28 22:00 23:20 WBC RBC Hgb Hct MCV MCH MCHC RDW Plt Count Neut % (Auto) Lymph % (Auto) [place] % (Auto) Eos % (Auto) Baso % (Auto) Neut # (Auto) Lymph # (Auto) [place] # (Auto) Eos # (Auto) Baso # (Auto) VBG pH VBG pCO2 VBG pO2 VBG HCO3 VBG Total CO2 VBG O2 Saturation VBG Base Excess Sodium 134 L 136 L Potassium 4.5 D 4.7 Chloride 98 98 Carbon Dioxide 10 L 15 L BUN 18 H 18 H Creatinine 0.83 0.90 Estimated GFR > 60.0 > 60.0 BUN/Creatinine Ratio 21.7 20.0 Glucose 711 H* 544 H* Lactate Calcium 9.1 9.4 Phosphorus Magnesium Total Bilirubin AST ALT Alkaline Phosphatase Total Protein Albumin Globulin Albumin/Globulin Ratio Lipase Procalcitonin Serum , Qual Urine Color Urine Appearance Urine pH Ur Specific [place] Urine Protein Urine Glucose (UA) Urine Ketones Urine Occult Blood Urine Nitrate Urine Bilirubin Urine Urobilinogen Ur Leukocyte Esterase Urine RBC Urine WBC Ur Squamous Epith Cells Urine Bacteria Urine Yeast Ur Culture Indicated? Nasal Screen MRSA (PCR) U Opiates 300ng/mL cut Ur Oxycodone Screen Urine Methadone Screen Ur Barbiturates Screen U Tricyclic Antidepress Ur Phencyclidine Scrn Ur Amphetamines Screen U Methamphetamines Scrn Ur MDMA Scrn (Ecstasy) U Benzodiazepines Scrn Urine Cocaine Screen U Marijuana (THC) Screen Ethyl Alcohol Ketones Chlamy pneumoniae PCR Adenovirus (PCR) B.parapertussis DNA PCR Coronavirus OC43 (PCR) Coronavirus HKU1 (PCR) Coronavirus 229E (PCR) COVID-19 PCR Negative Coronavirus NL63 (PCR) Human Metapneumovir PCR Influenza Type A (PCR) Influenza Type B (PCR) M. pneumoniae (PCR) Parainfluenza 1 (PCR) Parainfluenza 2 (PCR) Parainfluenza 3 (PCR) Parainfluenza 4 (PCR) RSV (PCR) Entero/Rhino (PCR) 01/16/20 01/16/20 01/17/20 23:45 23:45 01:15 WBC RBC Hgb Hct MCV MCH MCHC RDW Plt Count Neut % (Auto) Lymph % (Auto) [place] % (Auto) Eos % (Auto) Baso % (Auto) Neut # (Auto) Lymph # (Auto) [place] # (Auto) Eos # (Auto) Baso # (Auto) VBG pH VBG pCO2 VBG pO2 VBG HCO3 VBG Total CO2 VBG O2 Saturation VBG Base Excess Sodium Potassium Chloride Carbon Dioxide BUN Creatinine Estimated GFR BUN/Creatinine Ratio Glucose Lactate Calcium Phosphorus Magnesium Total Bilirubin AST ALT Alkaline Phosphatase Total Protein Albumin Globulin Albumin/Globulin Ratio Lipase Procalcitonin Serum , Qual Urine Color Yellow Urine Appearance Clear Urine pH 5.0 Ur Specific [place] 1.010 Urine Protein Negative Urine Glucose (UA) 3+ H Urine Ketones 3+ H Urine Occult Blood Negative Urine Nitrate Negative Urine Bilirubin Negative Urine Urobilinogen 0.2 Ur Leukocyte Esterase Negative Urine RBC None seen Urine WBC None seen Ur Squamous Epith Cells 1-5 /hpf Urine Bacteria None seen Urine Yeast 1-5/hpf H Ur Culture Indicated? Cult not indicated Nasal Screen MRSA (PCR) Negative for mrsa U Opiates 300ng/mL cut Negative Ur Oxycodone Screen Negative Urine Methadone Screen Negative Ur Barbiturates Screen Negative U Tricyclic Antidepress Negative Ur Phencyclidine Scrn Negative Ur Amphetamines Screen Negative U Methamphetamines Scrn Negative Ur MDMA Scrn (Ecstasy) Negative U Benzodiazepines Scrn Negative Urine Cocaine Screen Negative U Marijuana (THC) Screen Negative Ethyl Alcohol Ketones Chlamy pneumoniae PCR Adenovirus (PCR) B.parapertussis DNA PCR Coronavirus OC43 (PCR) Coronavirus HKU1 (PCR) Coronavirus 229E (PCR) COVID-19 PCR Coronavirus NL63 (PCR) Human Metapneumovir PCR Influenza Type A (PCR) Influenza Type B (PCR) M. pneumoniae (PCR) Parainfluenza 1 (PCR) Parainfluenza 2 (PCR) Parainfluenza 3 (PCR) Parainfluenza 4 (PCR) RSV (PCR) Entero/Rhino (PCR) 01/17/20 01/17/20 01/17/20 01:15 01:55 06:15 WBC 7.3 RBC 3.94 L Hgb 12.8 Hct 36.8 MCV 93.5 D MCH 32.6 MCHC 34.9 RDW 13.2 Plt Count 387 Neut % (Auto) 53.2 D Lymph % (Auto) 34.1 [place] % (Auto) 11.2 Eos % (Auto) 0.4 L Baso % (Auto) 1.1 Neut # (Auto) 3900 Lymph # (Auto) 2500 [place] # (Auto) 800 Eos # (Auto) 0 Baso # (Auto) 100 VBG pH VBG pCO2 VBG pO2 VBG HCO3 VBG Total CO2 VBG O2 Saturation VBG Base Excess Sodium 138 Potassium 3.7 Chloride 101 Carbon Dioxide 23 BUN 17 Creatinine 0.76 Estimated GFR > 60.0 BUN/Creatinine Ratio 22.4 H Glucose 166 H D Lactate Calcium 9.4 Phosphorus 3.5 D Magnesium 1.9 Total Bilirubin AST ALT Alkaline Phosphatase Total Protein Albumin Globulin Albumin/Globulin Ratio Lipase Procalcitonin Serum , Qual Urine Color Urine Appearance Urine pH Ur Specific [place] Urine Protein Urine Glucose (UA) Urine Ketones Urine Occult Blood Urine Nitrate Urine Bilirubin Urine Urobilinogen Ur Leukocyte Esterase Urine RBC Urine WBC Ur Squamous Epith Cells Urine Bacteria Urine Yeast Ur Culture Indicated? Nasal Screen MRSA (PCR) U Opiates 300ng/mL cut Ur Oxycodone Screen Urine Methadone Screen Ur Barbiturates Screen U Tricyclic Antidepress Ur Phencyclidine Scrn Ur Amphetamines Screen U Methamphetamines Scrn Ur MDMA Scrn (Ecstasy) U Benzodiazepines Scrn Urine Cocaine Screen U Marijuana (THC) Screen Ethyl Alcohol Ketones Chlamy pneumoniae PCR Not detected Adenovirus (PCR) Not detected B.parapertussis DNA PCR Not detected Coronavirus OC43 (PCR) Not detected Coronavirus HKU1 (PCR) Not detected Coronavirus 229E (PCR) Not detected COVID-19 PCR Coronavirus NL63 (PCR) Not detected Human Metapneumovir PCR Not detected Influenza Type A (PCR) Not detected Influenza Type B (PCR) Not detected M. pneumoniae (PCR) Not detected Parainfluenza 1 (PCR) Not detected Parainfluenza 2 (PCR) Not detected Parainfluenza 3 (PCR) Not detected Parainfluenza 4 (PCR) Not detected RSV (PCR) Not detected Entero/Rhino (PCR) Not detected 01/17/20 06:15 WBC RBC Hgb Hct MCV MCH MCHC RDW Plt Count Neut % (Auto) Lymph % (Auto) [place] % (Auto) Eos % (Auto) Baso % (Auto) Neut # (Auto) Lymph # (Auto) [place] # (Auto) Eos # (Auto) Baso # (Auto) VBG pH VBG pCO2 VBG pO2 VBG HCO3 VBG Total CO2 VBG O2 Saturation VBG Base Excess Sodium 137 Potassium 3.9 Chloride 102 Carbon Dioxide 27 BUN 15 Creatinine 0.66 Estimated GFR > 60.0 BUN/Creatinine Ratio 22.7 H Glucose 155 H Lactate Calcium 9.1 Phosphorus Magnesium Total Bilirubin AST ALT Alkaline Phosphatase Total Protein Albumin Globulin Albumin/Globulin Ratio Lipase Procalcitonin Serum , Qual Urine Color Urine Appearance Urine pH Ur Specific [place] Urine Protein Urine Glucose (UA) Urine Ketones Urine Occult Blood Urine Nitrate Urine Bilirubin Urine Urobilinogen Ur Leukocyte Esterase Urine RBC Urine WBC Ur Squamous Epith Cells Urine Bacteria Urine Yeast Ur Culture Indicated? Nasal Screen MRSA (PCR) U Opiates 300ng/mL cut Ur Oxycodone Screen Urine Methadone Screen Ur Barbiturates Screen U Tricyclic Antidepress Ur Phencyclidine Scrn Ur Amphetamines Screen U Methamphetamines Scrn Ur MDMA Scrn (Ecstasy) U Benzodiazepines Scrn Urine Cocaine Screen U Marijuana (THC) Screen Ethyl Alcohol Ketones Chlamy pneumoniae PCR Adenovirus (PCR) B.parapertussis DNA PCR Coronavirus OC43 (PCR) Coronavirus HKU1 (PCR) Coronavirus 229E (PCR) COVID-19 PCR Coronavirus NL63 (PCR) Human Metapneumovir PCR Influenza Type A (PCR) Influenza Type B (PCR) M. pneumoniae (PCR) Parainfluenza 1 (PCR) Parainfluenza 2 (PCR) Parainfluenza 3 (PCR) Parainfluenza 4 (PCR) RSV (PCR) Entero/Rhino (PCR) Discharge Plan Discharge Plan Patient Disposition: Home Discharge orders & Medications Prescriptions: Continued glucose 4 gram tablet,chewable 4 gram PO Q15M PRN (Reason: hypoglycemia) Qty: 30 RF: 0 Glucagon Emergency Kit (human) 1 mg recon soln 1 mg subcut DIRECTED RF: 0 insulin degludec 200 unit/mL (3 mL) Insulin Pen 50 unit SUBCUT DAILY RF: 0 insulin aspart U-100 [Novolog Flexpen U-100 Insulin] 100 unit/mL (3 mL) insulin pen 13 unit SUBCUT AC RF: 0 Discontinued hydrocodone-acetaminophen [[employer]] 5-325 mg tablet 1 tab PO TID PRN (Reason: pain) Qty: 7 RF: 0 Follow up/Referrals: Jimmy Anderson MD [Primary Care Provider] - Diet/Activity/Treatments Diet: Carb-consistent/Diabetic Discharge Data Primary Care Provider: Jimmy Anderson
--- NOTE | 2020-01-17 13:50 | PC.NURSE ---
Discharge Note: Pt initially on insulin gtts and insulin protocol iv fluids. Pt SQ long acting insulin given by retail shift manager RN. Fluids and insulin gtts stopped at 0800. Pt tolerating PO intake, denies nausea. Complains of generalized aching pain up to 7/10. Given 0.5 mg iv dilaudid per MD order and benadryl for pruritis. Pt otherwise tachycardic to 120s initially, RA SPO2 high 90s. Denies SOB. Given 2 L NS fluid bolus per md orders. HR down to 100s at rest and 110s with activity by the time of discharge. MD aware. Pt instructed to continue to drink plenty of water, to continue to remain adequately hydrated. Pt's pre-meal lunch BG was 149, post meal was 116. Pt given discharge instructions about medications, diet and diabetes management. Pt discharged to private vehicle with her mother. Will notify MD with changes.
== END 2020-01-17 14:00 | disposition home or self-care (01) | DRG 639 ==
LOC: ED 20:35 → AC 20:40 → ICU 22:36
PROVIDERS: Admitting Provider Nurse Practitioner Adult Health; Emergency Provider Emergency Medicine; Referring Provider Emergency Medicine; Visit Provider Nurse Practitioner Adult Health
DX: E10.10 Type 1 diabetes mellitus with ketoacidosis without coma (principal); N31.9 Neuromuscular dysfunction of bladder, unspecified; R10.84 Generalized abdominal pain
CPT/HCPCS: 36415; 80048; 80053; 80305; 80320; 81001; 82009; 82805; 82962; 83605; 83690; 83735; 84100; 84145; 84703; 85025; 87040; 87077; 87086; 87633; 87635; 87797; 93005; 94762; 96361; 96365; 96366; 96375; 99284; 99291; J1170; J1200; J1644; J2405; J7050

== ENCOUNTER → 2020-01-20 16:12 | Outpatient (CLI) | payer OTHER, MEDICAID, SELFPAY ==
[2020-01-17 01:55] VITALS: BMI 17.6
== END ==
PROVIDERS: Referring Provider Surgery; Visit Provider Family Medicine
DX: S01.00XA Unspecified open wound of scalp, initial encounter (principal); E10.65 Type 1 diabetes mellitus with hyperglycemia
CPT/HCPCS: 99212; 99213

== ENCOUNTER 2020-02-01 05:13 | Inpatient (IN) | payer OTHER, MEDICAID, SELFPAY ==
[2020-02-01] VITALS (55 sets, daily range): BP systolic 98–140; BP diastolic 55–98; PULSE 101–183; RESP 7–125; TEMP 33.9–37.2; O2SAT 97–100; BMI 18.8
--- NOTE | 2020-02-01 05:21 | ED_ITS ---
HPI - General Adult <Leti Drake MD - Last Filed: 02/01/20 21:17> General Chief complaint: Diabetic Problem Stated complaint: ketoacidosis Time Seen by Provider: 02/01/20 05:18 History of Present Illness HPI narrative: 30-year-old type 1 diabetic with multiple episodes of DKA presents in DKA. Brought in by her significant other with waxing and waning levels of consciousness, deep Kussmaul breathing and complaining that ?it hurts everywhere? period. Her significant other reports that she had the recent scalp lesion with recurrent abscess revised and closed 5 days ago. He states that she has been using her insulin as prescribed. Notes that yesterday she was not feeling well and he encouraged her to come to the emergency department than but she declined. She did take her usual 8:00 p.m. dose of insulin. It is not clear if she has any using correction doses. Related Data Home Medications Medication Instructions Recorded Confirmed Glucagon Emergency Kit (human) 1 mg SUBCUT DIRECTED 02/16/19 01/03/20 insulin degludec 50 unit SUBCUT DAILY 11/21/19 01/03/20 insulin aspart U-100 [Novolog 13 unit SUBCUT AC 01/03/20 01/03/20 Flexpen U-100 Insulin] Previous Rx's Medication Instructions Recorded glucose 4 gram PO Q15M PRN #30 tab 12/12/18 Allergies Allergy/AdvReac Type Severity Reaction Status Date / Time abdalla [ABDALLA] Allergy Intermediate Hives, Verified 12/11/19 16:55 pruritus iodine [IODINE] Allergy Intermediate rash, itchy Verified 12/11/19 16:55 morphine Allergy Intermediate Difficulty Verified 12/11/19 16:55 Breathing shellfish derived Allergy Intermediate rash Verified 12/11/19 16:55 [SHELLFISH DERIVED] adhesive [ADHESIVE] Allergy Unknown tape Verified 12/11/19 16:55 latex [LATEX] Allergy Unknown Hives Verified 12/11/19 16:55 Review of Systems <Leti Drake MD - Last Filed: 02/01/20 21:17> Review of Systems Narrative: Per her significant other she has not had recent fevers, cough, chills. Remainder of review of systems is unobtainable due to acute unstable medical condition Patient History <Leti Drake MD - Last Filed: 02/01/20 21:17> Medical History DKA (diabetic ketoacidoses) (Resolved) History of pyelonephritis (Resolved) Irregular menstrual cycle (Acute) Migraine headache (Chronic) Nephrolithiasis (Resolved) Type 1 diabetes mellitus (Chronic) Surgical History History of ureter stent (Resolved) Hx of local excision of skin lesion (Acute) Status post laser lithotripsy of ureteral calculus (Acute) [place] teeth extracted (Acute) Family History Father In good health Mother Cardiac disease Social History details: Engaged household members: significant other and family Smoking Status: Never smoker alcohol intake: current Smoking Status: Never smoker alcohol intake frequency: 0-2 drinks per day Substance Use Type: does not use Exam <Leti Drake MD - Last Filed: 02/01/20 21:17> Narrative Exam Narrative: General: Cachectic, acutely ill woman with altered mental status and deep Kussmaul breathing HEENT: Very dry mucous membranes, normal sclera with reactive pupils, adolph in place over the scalp wound on the top of her head, wound appears clean and dry no surrounding erythema Neck: No JVD, supple Respiratory: Lungs are clear to auscultation, no wheezing no rales no rhonchi. Full, deep and symmetrical air movement Cardiac: Tachycardic and regular with no murmurs no bruits Abdomen: Soft, diffusely tender without rebound or guarding. No bowel tones. no flank pain Skin: Pale, cool, peripheral mottling, no rashes Neurologic: Moving all extremities, no focal neurologic findings Extremities: No trauma, cool to the touch and poor perfusion distal to her knees. Hands and fingers similarly cool. Psych: Significantly altered and not able to answer questions Initial Vital Signs Initial Vital Signs: Vital Signs Temperature 96.6 F L 02/01/20 05:20 Pulse Rate 135 H 02/01/20 05:20 Respiratory Rate 17 02/01/20 05:20 Blood Pressure 140/98 H 02/01/20 05:20 Pulse Oximetry 98 02/01/20 05:20 <José Light MD - Last Filed: 02/01/20 13:31> Initial Vital Signs Initial Vital Signs: Vital Signs Temperature 96.6 F L 02/01/20 05:20 Pulse Rate 135 H 02/01/20 05:20 Respiratory Rate 17 02/01/20 05:20 Blood Pressure 140/98 H 02/01/20 05:20 Pulse Oximetry 98 02/01/20 05:20 Procedures <Leti Drake MD - Last Filed: 02/01/20 21:17> Central Line Placement Right IJ: Time Out Performed: Yes Patient Placed on Monitor/Pulse Ox: Yes MD Prep: mask, gown and gloves Central Line Prep: Chlorhexidine scrub Local Anesthetic: lidocaine 1% Amount of anesthesia used (mL): 2 Ultrasound Used for Placement: Yes Central Line Lumen Inserted: triple Post Procedure: sutured in place Post Procedure X-Ray: tip of catheter in good position Patient Tolerated Procedure: Well Course <Leti Drake MD - Last Filed: 02/01/20 21:17> Orders Ordered: ED Orders 02/01/20 12:54 Venous Blood Gas Stat Acetaminophen (Tylenol) 650 mg PO Q4HR PRN PRN Reason: Fever/Mild Pain (1-3) Diphenhydramine HCl (Benadryl) 25 mg IV Q6HR PRN PRN Reason: Itching Last Admin: 02/01/20 12:17 Dose: 25 mg Documented by: JESSICA Hydromorphone HCl (Dilaudid) 1 mg IV Q4H PRN PRN Reason: pain Last Admin: 02/01/20 16:44 Dose: 1 mg Documented by: LUIS EDUARDO Admin: 02/01/20 12:18 Dose: 1 mg Documented by: JESSICA Insulin Human Regular 100 unit (/ Sodium Chloride) 100 mls @ 6 mls/hr IV TITRATE [facility]; Protocol Last Titration: 02/01/20 17:04 Dose: 0.9 unit/h, 0.9 mls/hr Documented by: LUIS EDUARDO Cosigned by: FELICIA Admin: 02/01/20 16:02 Dose: 3.6 unit/h, 3.6 mls/hr Documented by: LUIS EDUARDO Cosigned by: KDALE Titration: 02/01/20 16:02 Dose: 1.8 unit/h, 1.8 mls/hr Documented by: LUIS EDUARDO Cosigned by: CHLOE Titration: 02/01/20 15:22 Dose: 1.8 unit/h, 1.8 mls/hr Documented by: JESSICA Cosigned by: MARLINE Admin: 02/01/20 14:45 Dose: 0.9 unit/h, 0.9 mls/hr Documented by: JESSICA Smalligned by: MARLINE Admin: 02/01/20 14:21 Dose: Not Given Documented by: JESSICA Dextrose/Sodium Chloride (Dextrose 5%-0.45% Ns) 1,000 mls @ 67.5 mls/hr IV PROTOCOL [facility] Last Infusion: 02/01/20 17:03 Dose: 0 mls/hr Documented by: LUIS EDUARDO Admin: 02/01/20 15:17 Dose: 67.5 mls/hr Documented by: JESSICA Dextrose (D10w) 1,000 mls @ 90 mls/hr IV PROTOCOL [facility] Last Infusion: 02/01/20 17:02 Dose: 45 mls/hr Documented by: LUIS EDUARDO Infusion: 02/01/20 15:19 Dose: 0 mls/hr Documented by: Admin: 02/01/20 11:15 Dose: 45 mls/hr Documented by: JESSICA Potassium Chloride 20 meq/ (Sodium Chloride) 1,010 mls @ 125 mls/hr IV CONT [facility] Last Admin: 02/01/20 20:59 Dose: 125 mls/hr Documented by: LUIS EDUARDO Cosigned by: DYLLAN Infusion: 02/01/20 20:59 Dose: 125 mls/hr Documented by: LUIS EDUARDO Cosigned by: DYLLAN Admin: 02/01/20 17:27 Dose: 125 mls/hr Documented by: LUIS EDUARDO Farrell by: MAL Potassium Chloride 40 meq/ (Sodium Chloride) 520 mls @ 130 mls/hr IV NOW ONE Stop: 02/02/20 00:01 Last Admin: 02/01/20 20:51 Dose: 130 mls/hr Documented by: LUIS EDUARDO Cosigned by: DYLLAN Magnesium Sulfate (Magnesium Sulfate) 2 gm in 50 mls @ 25 mls/hr IV NOW ONE Stop: 02/01/20 22:00 Last Admin: 02/01/20 20:17 Dose: 25 mls/hr Documented by: LUIS EDUARDO Cosigned by: DYLLAN Metoclopramide HCl (Reglan) 10 mg IV Q6HR PRN PRN Reason: Nausea And Vomiting Neomycin/Polymyxin/Bacitracin (Neosporin) 1 applic TOP TID [facility] Last Admin: 02/01/20 20:56 Dose: 1 applic Documented by: LUIS EDUARDO Admin: 02/01/20 14:40 Dose: 1 applic Documented by: JESSICA Ondansetron HCl (Zofran) 4 mg IV Q4HR PRN PRN Reason: Nausea And Vomiting Discontinued Medications Bacitracin (Bacitracin) 1 applic TOP BID [facility] Last Admin: 02/01/20 14:21 Dose: 1 applic Documented by: JESSICA Sodium Chloride (Normal Saline 0.9%) 1,000 mls @ 2,000 mls/hr IV BOLUS ONE Stop: 02/01/20 05:47 Last Infusion: 02/01/20 07:27 Dose: 0 mls/hr Documented by: Admin: 02/01/20 06:14 Dose: 2,000 mls/hr Documented by: ARABELLA INSULIN DRIP PREMIX (Myxredlin Drip Premix) 100 unit in 100 mls @ 6 mls/hr IV TITRATE [facility]; Protocol Last Titration: 02/01/20 15:19 Dose: 1.8 mls/hr, 1.8 mls/hr Documented by: JESSICA Smalligned by: MARLINE Titration: 02/01/20 13:06 Dose: 0.9 mls/hr, 0.9 mls/hr Documented by: JESSICA Cosigned by: MARLINE Titration: 02/01/20 12:05 Dose: 0 mls/hr, 0 mls/hr Documented by: JESSICA Smalligned by: MARLINE Titration: 02/01/20 11:15 Dose: 0.9 mls/hr, 0.9 mls/hr Documented by: JESSICA Smalligned by: MARLINE Titration: 02/01/20 09:06 Dose: 4.5 mls/hr, 4.5 mls/hr Documented by: JESSICA Cosigned by: MARLINE Titration: 02/01/20 08:40 Dose: 6 mls/hr, 6 mls/hr Documented by: JESSICA Cosigned by: MARLINE Titration: 02/01/20 08:32 Dose: 0 mls/hr, 0 mls/hr Documented by: CANDE Cosigned by: SAMI Admin: 02/01/20 06:10 Dose: 6 mls/hr, 6 mls/hr Documented by: ARABELLA Cosigned by: NAN Potassium Chloride 20 meq/ (Sodium Chloride) 260 mls @ 130 mls/hr IV NOW ONE Stop: 02/01/20 07:35 Last Infusion: 02/01/20 08:12 Dose: 0 mls/hr Documented by: SAMI Cosigned by: CANDE Admin: 02/01/20 06:10 Dose: 130 mls/hr Documented by: ARABELLA Cosigned by: NAN Ceftriaxone Sodium/Dextrose (Rocephin) 2 gm in 50 mls @ 100 mls/hr IV NOW ONE Stop: 02/01/20 07:14 Last Infusion: 02/01/20 07:28 Dose: 0 mls/hr Documented by: Admin: 02/01/20 06:53 Dose: 100 mls/hr Documented by: ARABELLA Sodium Chloride (Normal Saline 0.9%) 1,000 mls @ 1,000 mls/hr IV BOLUS ONE Stop: 02/01/20 08:25 Last Infusion: 02/01/20 08:32 Dose: 0 mls/hr Documented by: Admin: 02/01/20 07:32 Dose: 1,000 mls/hr Documented by: ARABELLA Sodium Chloride (Normal Saline 0.9%) 1,000 mls @ 1,000 mls/hr IV BOLUS ONE Stop: 02/01/20 10:31 Last Infusion: 02/01/20 11:00 Dose: 500 mls/hr Documented by: Admin: 02/01/20 09:59 Dose: 1,000 mls/hr Documented by: JESSICA Potassium Chloride 40 meq/ (Sodium Chloride) 520 mls @ 130 mls/hr IV NOW ONE Stop: 02/01/20 09:33 Last Infusion: 02/01/20 13:35 Dose: 0 mls/hr Documented by: JESSICA Cosigned by: MARLINE Admin: 02/01/20 10:00 Dose: 130 mls/hr Documented by: JESSICA Cosigned by: MARLINE Sodium Bicarbonate 100 meq/ (Sterile Water) 500 mls @ 200 mls/hr IV CONT [facility] Last Infusion: 02/01/20 13:06 Dose: 0 mls/hr Documented by: Admin: 02/01/20 10:25 Dose: 200 mls/hr Documented by: JESSICA Potassium Chloride 20 meq/ (Sodium Chloride) 1,010 mls @ 125 mls/hr IV CONT [facility] Last Admin: 02/01/20 14:40 Dose: 200 mls/hr Documented by: JESSICA Cosigned by: MARLINE Sodium Chloride (Normal Saline 0.45%) 1,000 mls @ 125 mls/hr IV CONT [facility] Calcium Gluconate 4.65 meq/ (Sodium Chloride) 60 mls @ 180 mls/hr IV NOW ONE Stop: 02/01/20 18:41 Last Admin: 02/01/20 18:16 Dose: 180 mls/hr Documented by: LUIS EDUARDO Ondansetron HCl (Zofran) 4 mg IV NOW ONE Stop: 02/01/20 05:19 Last Admin: 02/01/20 06:13 Dose: 4 mg Documented by: ARABELLA Sodium Bicarbonate (Sodium Bicarbonate 8.4% Syringe) 45 meq 1 meq/kg (45 meq) IV NOW ONE Stop: 02/01/20 05:36 Last Admin: 02/01/20 06:08 Dose: 45 meq Documented by: ARABELLA Vital Signs Vital signs: Vital Signs - 8 hr 02/01/20 06:21 02/01/20 06:25 02/01/20 06:30 Temperature Pulse Rate 171 H 167 H 163 H Respiratory Rate 26 H 22 20 Blood Pressure 113/59 L 114/65 Pulse Oximetry 100 100 99 02/01/20 06:34 02/01/20 06:35 02/01/20 06:40 Temperature 93.1 F L Pulse Rate 160 H 160 H Respiratory Rate 18 19 Blood Pressure 115/65 115/62 Pulse Oximetry 100 100 02/01/20 06:45 02/01/20 06:50 02/01/20 06:55 Temperature Pulse Rate 159 H 159 H 158 H Respiratory Rate 22 21 18 Blood Pressure 129/69 129/59 L 130/70 Pulse Oximetry 100 100 100 02/01/20 07:00 02/01/20 07:05 02/01/20 07:10 Temperature Pulse Rate 159 H 159 H 159 H Respiratory Rate 21 20 20 Blood Pressure 125/72 126/71 124/76 Pulse Oximetry 100 100 100 02/01/20 07:15 02/01/20 07:19 02/01/20 07:20 Temperature Pulse Rate 162 H 162 H 162 H Respiratory Rate 19 22 21 Blood Pressure 121/78 131/77 Pulse Oximetry 100 100 100 02/01/20 07:25 02/01/20 07:30 02/01/20 07:35 Temperature Pulse Rate 162 H 166 H 166 H Respiratory Rate 21 19 19 Blood Pressure 128/78 121/78 123/74 Pulse Oximetry 100 100 100 02/01/20 07:40 02/01/20 07:45 02/01/20 07:50 Temperature Pulse Rate 170 H 170 H 171 H Respiratory Rate 20 22 21 Blood Pressure 121/77 119/78 127/81 Pulse Oximetry 100 100 100 02/01/20 07:55 02/01/20 08:00 Temperature Pulse Rate 172 H 171 H Respiratory Rate 21 22 Blood Pressure 129/77 126/80 Pulse Oximetry 100 100 <José Light MD - Last Filed: 02/01/20 13:31> Course Course Narrative: Time 7:[address] Haile, awaiting call back from hospitalist attending Dr. arita, nighttime provider wanted to review case with Dr. arita for possible transfer or keep here for management. Patient on 2nd L normal saline. Laboratory studies reviewed. Will need continued IV hydration fluids. Patient on insulin drip as well. Orders Ordered: ED Orders 02/01/20 12:54 Venous Blood Gas Stat Acetaminophen (Tylenol) 650 mg PO Q4HR PRN PRN Reason: Fever/Mild Pain (1-3) Diphenhydramine HCl (Benadryl) 25 mg IV Q6HR PRN PRN Reason: Itching Last Admin: 02/01/20 12:17 Dose: 25 mg Documented by: YOLANDALANTO Hydromorphone HCl (Dilaudid) 1 mg IV Q4H PRN PRN Reason: pain Last Admin: 02/01/20 16:44 Dose: 1 mg Documented by: LUIS EDUARDO Admin: 02/01/20 12:18 Dose: 1 mg Documented by: JESSICA Insulin Human Regular 100 unit (/ Sodium Chloride) 100 mls @ 6 mls/hr IV TITRATE [facility]; Protocol Last Titration: 02/01/20 17:04 Dose: 0.9 unit/h, 0.9 mls/hr Documented by: LUIS EDUARDO Cosigned by: FELICIA Admin: 02/01/20 16:02 Dose: 3.6 unit/h, 3.6 mls/hr Documented by: LUIS EDUARDO Cosigned by: CHLOE Titration: 02/01/20 16:02 Dose: 1.8 unit/h, 1.8 mls/hr Documented by: LUIS EDUARDO Cosigned by: CHLOE Titration: 02/01/20 15:22 Dose: 1.8 unit/h, 1.8 mls/hr Documented by: JESSICA Cosigned by: MARLINE Admin: 02/01/20 14:45 Dose: 0.9 unit/h, 0.9 mls/hr Documented by: JESSICA Cosigned by: MARLINE Admin: 02/01/20 14:21 Dose: Not Given Documented by: JESSICA Dextrose/Sodium Chloride (Dextrose 5%-0.45% Ns) 1,000 mls @ 67.5 mls/hr IV PROTOCOL [facility] Last Infusion: 02/01/20 17:03 Dose: 0 mls/hr Documented by: LUIS EDUARDO Admin: 02/01/20 15:17 Dose: 67.5 mls/hr Documented by: JESSICA Dextrose (D10w) 1,000 mls @ 90 mls/hr IV PROTOCOL [facility] Last Infusion: 02/01/20 17:02 Dose: 45 mls/hr Documented by: LUIS EDUARDO Infusion: 02/01/20 15:19 Dose: 0 mls/hr Documented by: Admin: 02/01/20 11:15 Dose: 45 mls/hr Documented by: JESSICA Potassium Chloride 20 meq/ (Sodium Chloride) 1,010 mls @ 125 mls/hr IV CONT [facility] Last Admin: 02/01/20 20:59 Dose: 125 mls/hr Documented by: LUIS EDUARDO Cosigned by: DYLLAN Infusion: 02/01/20 20:59 Dose: 125 mls/hr Documented by: LUIS EDUARDO Cosigned by: DYLLAN Admin: 02/01/20 17:27 Dose: 125 mls/hr Documented by: LUIS EDUARDO Cosigned by: MAL Potassium Chloride 40 meq/ (Sodium Chloride) 520 mls @ 130 mls/hr IV NOW ONE Stop: 02/02/20 00:01 Last Admin: 02/01/20 20:51 Dose: 130 mls/hr Documented by: LUIS EDUARDO Cosigned by: DYLLAN Magnesium Sulfate (Magnesium Sulfate) 2 gm in 50 mls @ 25 mls/hr IV NOW ONE Stop: 02/01/20 22:00 Last Admin: 02/01/20 20:17 Dose: 25 mls/hr Documented by: LUIS EDUARDO Cosigned by: DYLLAN Metoclopramide HCl (Reglan) 10 mg IV Q6HR PRN PRN Reason: Nausea And Vomiting Neomycin/Polymyxin/Bacitracin (Neosporin) 1 applic TOP TID [facility] Last Admin: 02/01/20 20:56 Dose: 1 applic Documented by: LUIS EDUARDO Admin: 02/01/20 14:40 Dose: 1 applic Documented by: JESSICA Ondansetron HCl (Zofran) 4 mg IV Q4HR PRN PRN Reason: Nausea And Vomiting Discontinued Medications Bacitracin (Bacitracin) 1 applic TOP BID [facility] Last Admin: 02/01/20 14:21 Dose: 1 applic Documented by: JESSICA Sodium Chloride (Normal Saline 0.9%) 1,000 mls @ 2,000 mls/hr IV BOLUS ONE Stop: 02/01/20 05:47 Last Infusion: 02/01/20 07:27 Dose: 0 mls/hr Documented by: Admin: 02/01/20 06:14 Dose: 2,000 mls/hr Documented by: ARABELLA INSULIN DRIP PREMIX (Myxredlin Drip Premix) 100 unit in 100 mls @ 6 mls/hr IV TITRATE [facility]; Protocol Last Titration: 02/01/20 15:19 Dose: 1.8 mls/hr, 1.8 mls/hr Documented by: JESSICA Cosigned by: MARLINE Titration: 02/01/20 13:06 Dose: 0.9 mls/hr, 0.9 mls/hr Documented by: JESSICA Cosigned by: MARLINE Titration: 02/01/20 12:05 Dose: 0 mls/hr, 0 mls/hr Documented by: JESSICA Cosigned by: MARLINE Titration: 02/01/20 11:15 Dose: 0.9 mls/hr, 0.9 mls/hr Documented by: JESSICA Cosigned by: MARLINE Titration: 02/01/20 09:06 Dose: 4.5 mls/hr, 4.5 mls/hr Documented by: JESSICA Cosigned by: MARLINE Titration: 02/01/20 08:40 Dose: 6 mls/hr, 6 mls/hr Documented by: JESSICA Cosigned by: MARLINE Titration: 02/01/20 08:32 Dose: 0 mls/hr, 0 mls/hr Documented by: CANDE Cosigned by: SAMI Admin: 02/01/20 06:10 Dose: 6 mls/hr, 6 mls/hr Documented by: ARABELLA Cosigned by: NAN Potassium Chloride 20 meq/ (Sodium Chloride) 260 mls @ 130 mls/hr IV NOW ONE Stop: 02/01/20 07:35 Last Infusion: 02/01/20 08:12 Dose: 0 mls/hr Documented by: SAMI Cosigned by: CANDE Admin: 02/01/20 06:10 Dose: 130 mls/hr Documented by: ARABELLA Cosigned by: NAN Ceftriaxone Sodium/Dextrose (Rocephin) 2 gm in 50 mls @ 100 mls/hr IV NOW ONE Stop: 02/01/20 07:14 Last Infusion: 02/01/20 07:28 Dose: 0 mls/hr Documented by: Admin: 02/01/20 06:53 Dose: 100 mls/hr Documented by: ARABELLA Sodium Chloride (Normal Saline 0.9%) 1,000 mls @ 1,000 mls/hr IV BOLUS ONE Stop: 02/01/20 08:25 Last Infusion: 02/01/20 08:32 Dose: 0 mls/hr Documented by: Admin: 02/01/20 07:32 Dose: 1,000 mls/hr Documented by: ARABELLA Sodium Chloride (Normal Saline 0.9%) 1,000 mls @ 1,000 mls/hr IV BOLUS ONE Stop: 02/01/20 10:31 Last Infusion: 02/01/20 11:00 Dose: 500 mls/hr Documented by: Admin: 02/01/20 09:59 Dose: 1,000 mls/hr Documented by: JESSICA Potassium Chloride 40 meq/ (Sodium Chloride) 520 mls @ 130 mls/hr IV NOW ONE Stop: 02/01/20 09:33 Last Infusion: 02/01/20 13:35 Dose: 0 mls/hr Documented by: JESSICA Cosigned by: MARLINE Admin: 02/01/20 10:00 Dose: 130 mls/hr Documented by: JESSICA Cosigned by: MARLINE Sodium Bicarbonate 100 meq/ (Sterile Water) 500 mls @ 200 mls/hr IV CONT [facility] Last Infusion: 02/01/20 13:06 Dose: 0 mls/hr Documented by: Admin: 02/01/20 10:25 Dose: 200 mls/hr Documented by: JESSICA Potassium Chloride 20 meq/ (Sodium Chloride) 1,010 mls @ 125 mls/hr IV CONT [facility] Last Admin: 02/01/20 14:40 Dose: 200 mls/hr Documented by: JESSICA Cosigned by: MARLINE Sodium Chloride (Normal Saline 0.45%) 1,000 mls @ 125 mls/hr IV CONT [facility] Calcium Gluconate 4.65 meq/ (Sodium Chloride) 60 mls @ 180 mls/hr IV NOW ONE Stop: 02/01/20 18:41 Last Admin: 02/01/20 18:16 Dose: 180 mls/hr Documented by: LUIS EDUARDO Ondansetron HCl (Zofran) 4 mg IV NOW ONE Stop: 02/01/20 05:19 Last Admin: 02/01/20 06:13 Dose: 4 mg Documented by: ARABELLA Sodium Bicarbonate (Sodium Bicarbonate 8.4% Syringe) 45 meq 1 meq/kg (45 meq) IV NOW ONE Stop: 02/01/20 05:36 Last Admin: 02/01/20 06:08 Dose: 45 meq Documented by: ARABELLA Reevaluation(s) Reevaluation #1: Accu-Chek 403. Third L of normal saline just ordered. Temperature 94.3. Patient on Noah Hugger. Patient awake alert oriented x4. Fiancee at bedside. Answering questions and conversing appropriately. Blood pressure 131/77. Time: 07:28 Consultations Consultation #1: Spoke with hospitalist, Dr. arita, will admit to ICU here. No need to transfer patient Time: 07:58 Vital Signs Vital signs: Vital Signs - 8 hr 02/01/20 06:21 02/01/20 06:25 02/01/20 06:30 Temperature Pulse Rate 171 H 167 H 163 H Respiratory Rate 26 H 22 20 Blood Pressure 113/59 L 114/65 Pulse Oximetry 100 100 99 02/01/20 06:34 02/01/20 06:35 02/01/20 06:40 Temperature 93.1 F L Pulse Rate 160 H 160 H Respiratory Rate 18 19 Blood Pressure 115/65 115/62 Pulse Oximetry 100 100 02/01/20 06:45 02/01/20 06:50 02/01/20 06:55 Temperature Pulse Rate 159 H 159 H 158 H Respiratory Rate 22 21 18 Blood Pressure 129/69 129/59 L 130/70 Pulse Oximetry 100 100 100 02/01/20 07:00 02/01/20 07:05 02/01/20 07:10 Temperature Pulse Rate 159 H 159 H 159 H Respiratory Rate 21 20 20 Blood Pressure 125/72 126/71 124/76 Pulse Oximetry 100 100 100 02/01/20 07:15 02/01/20 07:19 02/01/20 07:20 Temperature Pulse Rate 162 H 162 H 162 H Respiratory Rate 19 22 21 Blood Pressure 121/78 131/77 Pulse Oximetry 100 100 100 02/01/20 07:25 02/01/20 07:30 02/01/20 07:35 Temperature Pulse Rate 162 H 166 H 166 H Respiratory Rate 21 19 19 Blood Pressure 128/78 121/78 123/74 Pulse Oximetry 100 100 100 02/01/20 07:40 02/01/20 07:45 02/01/20 07:50 Temperature Pulse Rate 170 H 170 H 171 H Respiratory Rate 20 22 21 Blood Pressure 121/77 119/78 127/81 Pulse Oximetry 100 100 100 02/01/20 07:55 02/01/20 08:00 Temperature Pulse Rate 172 H 171 H Respiratory Rate 21 22 Blood Pressure 129/77 126/80 Pulse Oximetry 100 100 Medical Decision Making <Leti Drake MD - Last Filed: 02/01/20 21:17> Medical Records Medical records reviewed: Yes I reviewed the patient's medical records. Lab Data Lab results reviewed: Yes I reviewed the patient's lab results. Lab results narrative: 0529 ABG Ph 6.86, CO2 7.8 O2 155 K 3.8 initial rectal temp 93 Anion gap 30 Result diagrams: 02/01/20 14:00 02/01/20 19:00 Labs: Lab Results 02/01/20 02/01/20 02/01/20 Range/Units 05:25 05:50 05:50 WBC 28.2 H (4.5-11.0) X10^3/uL RBC 4.40 (4.0-5.2) X10^6/uL Hgb 14.2 (12.0-16.0) g/dL Hct 45.4 (36-46) % MCV 103.3 H (80-100) fL MCH 32.2 (26-34) PG MCHC 31.2 (30-36) % RDW 13.8 (11.6-14.8) % Plt Count 527 H (150-400) X10^3/uL Neut % (Auto) 75.0 (50-75) % Lymph % (Auto) 18.1 L (25-40) % [place] % (Auto) 5.5 (3-14) % Eos % (Auto) 0.2 L (2-4) % Baso % (Auto) 1.2 (0-2) % Neut # (Auto) 75939 H (1936-9736) /uL Lymph # (Auto) 5100 H (9712-1634) /uL [place] # (Auto) 1500 H (0-900) /uL Eos # (Auto) 0 (0-450) /uL Baso # (Auto) 300 H (0-100) /uL Platelet Estimate Increased on smear RBC Morphology See below Macrocytosis 1+ H ABG pH 6.86 L* (7.35-7.45) ABG pCO2 7.8 L* (35-45) mmHg ABG pO2 155 H (80-100) mmHg ABG HCO3 1 L (22-26) mmol/L ABG Total CO2 5 L (21-31) mmol/L ABG O2 Saturation 97 (95-100) % ABG Base Excess -30.0 L (-2-2) mmol/L Sodium 141 (137-145) mmol/L Potassium 3.9 (3.4-5.1) mmol/L Chloride 107 (98-107) mmol/L Carbon Dioxide < 5 L* (22-32) mmol/L BUN 16 (7-17) mg/dL Creatinine 1.10 H (0.52-1.04) mg/dL Estimated GFR 59.1 L (>60) mL/min BUN/Creatinine Ratio 14.5 (6-22) Glucose 619 H* (70-100) mg/dL Hemoglobin A1c (4.0-6.0) % Lactate (0.7-2.1) mmol/L Calcium 8.7 (8.4-10.2) mg/dL Magnesium 2.2 (1.6-2.3) mg/dL Total Bilirubin 0.4 (0.2-1.3) mg/dL AST 22 (14-36) IU/L ALT 18 (<35) IU/L Alkaline Phosphatase 191 H (38-126) U/L Troponin I < 0.012 (0.01-0.034) ng/mL Total Protein 7.9 (6.3-8.2) g/dL Albumin 4.3 (3.5-5.0) g/dL Globulin 3.6 (1.7-4.1) g/dL Albumin/Globulin Ratio 1.2 (1.0-2.8) Urine Color Urine Appearance Urine pH (4.5-8.0) Ur Specific [place] (1.000-1.035) Urine Protein (Negative) Urine Glucose (UA) (Negative) g/dL Urine Ketones (NEGATIVE) Urine Occult Blood (Negative) Urine Nitrate (Negative) Urine Bilirubin (NEGATIVE) Urine Urobilinogen (0.2) E.U./dL Ur Leukocyte Esterase (NEGATIVE) Urine RBC (0-5/HPF) Urine WBC (0-5/HPF) Amorphous Sediment Urine Bacteria (None) Ur Culture Indicated? Urine Test (Negative) Ketones 17.59 H (<0.27) mmol/L COVID-19 PCR (Negative) 1002/01/20 02/01/20 Range/Units 05:50 05:50 06:25 WBC (4.5-11.0) X10^3/uL RBC (4.0-5.2) X10^6/uL Hgb (12.0-16.0) g/dL Hct (36-46) % MCV (80-100) fL MCH (26-34) PG MCHC (30-36) % RDW (11.6-14.8) % Plt Count (150-400) X10^3/uL Neut % (Auto) (50-75) % Lymph % (Auto) (25-40) % [place] % (Auto) (3-14) % Eos % (Auto) (2-4) % Baso % (Auto) (0-2) % Neut # (Auto) (4661-9949) /uL Lymph # (Auto) (0008-7441) /uL [place] # (Auto) (0-900) /uL Eos # (Auto) (0-450) /uL Baso # (Auto) (0-100) /uL Platelet Estimate RBC Morphology Macrocytosis ABG pH (7.35-7.45) ABG pCO2 (35-45) mmHg ABG pO2 (80-100) mmHg ABG HCO3 (22-26) mmol/L ABG Total CO2 (21-31) mmol/L ABG O2 Saturation (95-100) % ABG Base Excess (-2-2) mmol/L Sodium (137-145) mmol/L Potassium (3.4-5.1) mmol/L Chloride (98-107) mmol/L Carbon Dioxide (22-32) mmol/L BUN (7-17) mg/dL Creatinine (0.52-1.04) mg/dL Estimated GFR (>60) mL/min BUN/Creatinine Ratio (6-22) Glucose (70-100) mg/dL Hemoglobin A1c > 14.0 H (4.0-6.0) % Lactate 1.8 (0.7-2.1) mmol/L Calcium (8.4-10.2) mg/dL Magnesium (1.6-2.3) mg/dL Total Bilirubin (0.2-1.3) mg/dL AST (14-36) IU/L ALT (<35) IU/L Alkaline Phosphatase (38-126) U/L Troponin I (0.01-0.034) ng/mL Total Protein (6.3-8.2) g/dL Albumin (3.5-5.0) g/dL Globulin (1.7-4.1) g/dL Albumin/Globulin Ratio (1.0-2.8) Urine Color Yellow Urine Appearance Sl cloudy Urine pH 5.0 (4.5-8.0) Ur Specific [place] 1.020 (1.000-1.035) Urine Protein 1+ H (Negative) Urine Glucose (UA) 2+ H (Negative) g/dL Urine Ketones 3+ H (NEGATIVE) Urine Occult Blood 2+ H (Negative) Urine Nitrate Negative (Negative) Urine Bilirubin Negative (NEGATIVE) Urine Urobilinogen 0.2 (0.2) E.U./dL Ur Leukocyte Esterase Negative (NEGATIVE) Urine RBC None seen (0-5/HPF) Urine WBC 0-1/hpf (0-5/HPF) Amorphous Sediment 2+ Urine Bacteria Many (>30) H (None) Ur Culture Indicated? Cult not indicated Urine Test (Negative) Ketones (<0.27) mmol/L COVID-19 PCR (Negative) 02/01/20 02/01/20 Range/Units 06:25 06:44 WBC (4.5-11.0) X10^3/uL RBC (4.0-5.2) X10^6/uL Hgb (12.0-16.0) g/dL Hct (36-46) % MCV (80-100) fL MCH (26-34) PG MCHC (30-36) % RDW (11.6-14.8) % Plt Count (150-400) X10^3/uL Neut % (Auto) (50-75) % Lymph % (Auto) (25-40) % [place] % (Auto) (3-14) % Eos % (Auto) (2-4) % Baso % (Auto) (0-2) % Neut # (Auto) (3692-9713) /uL Lymph # (Auto) (9050-5786) /uL [place] # (Auto) (0-900) /uL Eos # (Auto) (0-450) /uL Baso # (Auto) (0-100) /uL Platelet Estimate RBC Morphology Macrocytosis ABG pH (7.35-7.45) ABG pCO2 (35-45) mmHg ABG pO2 (80-100) mmHg ABG HCO3 (22-26) mmol/L ABG Total CO2 (21-31) mmol/L ABG O2 Saturation (95-100) % ABG Base Excess (-2-2) mmol/L Sodium (137-145) mmol/L Potassium (3.4-5.1) mmol/L Chloride (98-107) mmol/L Carbon Dioxide (22-32) mmol/L BUN (7-17) mg/dL Creatinine (0.52-1.04) mg/dL Estimated GFR (>60) mL/min BUN/Creatinine Ratio (6-22) Glucose (70-100) mg/dL Hemoglobin A1c (4.0-6.0) % Lactate (0.7-2.1) mmol/L Calcium (8.4-10.2) mg/dL Magnesium (1.6-2.3) mg/dL Total Bilirubin (0.2-1.3) mg/dL AST (14-36) IU/L ALT (<35) IU/L Alkaline Phosphatase (38-126) U/L Troponin I (0.01-0.034) ng/mL Total Protein (6.3-8.2) g/dL Albumin (3.5-5.0) g/dL Globulin (1.7-4.1) g/dL Albumin/Globulin Ratio (1.0-2.8) Urine Color Urine Appearance Urine pH (4.5-8.0) Ur Specific [place] (1.000-1.035) Urine Protein (Negative) Urine Glucose (UA) (Negative) g/dL Urine Ketones (NEGATIVE) Urine Occult Blood (Negative) Urine Nitrate (Negative) Urine Bilirubin (NEGATIVE) Urine Urobilinogen (0.2) E.U./dL Ur Leukocyte Esterase (NEGATIVE) Urine RBC (0-5/HPF) Urine WBC (0-5/HPF) Amorphous Sediment Urine Bacteria (None) Ur Culture Indicated? Urine Test Negative (Negative) Ketones (<0.27) mmol/L COVID-19 PCR Negative (Negative) Point of Care Testing Glucose POC 403 Point of care testing: Point of Care Testing Glucose POC 403 Imaging Data Chest x-ray: Attestation: I personally reviewed and interpreted this imaging study as follows: My Impression: No acute infiltrates, no cardiomegaly, no pneumothorax. Tip of central venous catheter is appropriately placed in the superior vena cava ECG Data Attestation: I personally reviewed and interpreted this ECG as follows: Interpretation: Sinus tachycardia at a rate of 119 Normal intervals, normal axis No widened QRS and no peaked T-waves, no ST-T wave changes MDM Narrative Medical decision making narrative: 30-year-old type 1 diabetic presents with obvious severe DKA no obvious infection source. In further discussion with her significant other he notes that she typically does use her single long-acting insulin but frequently does not supplement and rarely checks her own sugars. Initial pH is 6.86, she has significantly altered mental status, she is so dehydrated that central line is difficult to place but once placed were able to get remaining blood work collected and begin fluid resuscitation, an amp of bicarb, insulin drip and potassium supplementation. Significant hypothermia with a rectal temperature of 93?. Warmed fluids and Noah Hugger are all in place White blood cell count comes back at 28.2. Will go ahead and begin antibiotics with 2 g of ceftriaxone while or continuing to look for any type of source. Certainly could be an acute phase reactant from her severe DKA however seems higher than that and her significant other notices that since she had her surgical revision 5 days ago on her scalp that she has clearly been worsening. Again surgical site itself does not look infected and there is no fluctuance or purulence associated with it. <José Light MD - Last Filed: 02/01/20 13:31> Lab Data Lab results reviewed: Yes I reviewed the patient's lab results. Labs: Lab Results 02/01/20 02/01/20 02/01/20 Range/Units 05:25 05:50 05:50 WBC 28.2 H (4.5-11.0) X10^3/uL RBC 4.40 (4.0-5.2) X10^6/uL Hgb 14.2 (12.0-16.0) g/dL Hct 45.4 (36-46) % MCV 103.3 H (80-100) fL MCH 32.2 (26-34) PG MCHC 31.2 (30-36) % RDW 13.8 (11.6-14.8) % Plt Count 527 H (150-400) X10^3/uL Neut % (Auto) 75.0 (50-75) % Lymph % (Auto) 18.1 L (25-40) % [place] % (Auto) 5.5 (3-14) % Eos % (Auto) 0.2 L (2-4) % Baso % (Auto) 1.2 (0-2) % Neut # (Auto) 54440 H (7037-5494) /uL Lymph # (Auto) 5100 H (7167-6412) /uL [place] # (Auto) 1500 H (0-900) /uL Eos # (Auto) 0 (0-450) /uL Baso # (Auto) 300 H (0-100) /uL Platelet Estimate Increased on smear RBC Morphology See below Macrocytosis 1+ H ABG pH 6.86 L* (7.35-7.45) ABG pCO2 7.8 L* (35-45) mmHg ABG pO2 155 H (80-100) mmHg ABG HCO3 1 L (22-26) mmol/L ABG Total CO2 5 L (21-31) mmol/L ABG O2 Saturation 97 (95-100) % ABG Base Excess -30.0 L (-2-2) mmol/L Sodium 141 (137-145) mmol/L Potassium 3.9 (3.4-5.1) mmol/L Chloride 107 (98-107) mmol/L Carbon Dioxide < 5 L* (22-32) mmol/L BUN 16 (7-17) mg/dL Creatinine 1.10 H (0.52-1.04) mg/dL Estimated GFR 59.1 L (>60) mL/min BUN/Creatinine Ratio 14.5 (6-22) Glucose 619 H* (70-100) mg/dL Hemoglobin A1c (4.0-6.0) % Lactate (0.7-2.1) mmol/L Calcium 8.7 (8.4-10.2) mg/dL Magnesium 2.2 (1.6-2.3) mg/dL Total Bilirubin 0.4 (0.2-1.3) mg/dL AST 22 (14-36) IU/L ALT 18 (<35) IU/L Alkaline Phosphatase 191 H (38-126) U/L Troponin I < 0.012 (0.01-0.034) ng/mL Total Protein 7.9 (6.3-8.2) g/dL Albumin 4.3 (3.5-5.0) g/dL Globulin 3.6 (1.7-4.1) g/dL Albumin/Globulin Ratio 1.2 (1.0-2.8) Urine Color Urine Appearance Urine pH (4.5-8.0) Ur Specific [place] (1.000-1.035) Urine Protein (Negative) Urine Glucose (UA) (Negative) g/dL Urine Ketones (NEGATIVE) Urine Occult Blood (Negative) Urine Nitrate (Negative) Urine Bilirubin (NEGATIVE) Urine Urobilinogen (0.2) E.U./dL Ur Leukocyte Esterase (NEGATIVE) Urine RBC (0-5/HPF) Urine WBC (0-5/HPF) Amorphous Sediment Urine Bacteria (None) Ur Culture Indicated? Urine Test (Negative) Ketones 17.59 H (<0.27) mmol/L COVID-19 PCR (Negative) 02/01/20 02/01/20 02/01/20 Range/Units 05:50 05:50 06:25 WBC (4.5-11.0) X10^3/uL RBC (4.0-5.2) X10^6/uL Hgb (12.0-16.0) g/dL Hct (36-46) % MCV (80-100) fL MCH (26-34) PG MCHC (30-36) % RDW (11.6-14.8) % Plt Count (150-400) X10^3/uL Neut % (Auto) (50-75) % Lymph % (Auto) (25-40) % [place] % (Auto) (3-14) % Eos % (Auto) (2-4) % Baso % (Auto) (0-2) % Neut # (Auto) (9544-6019) /uL Lymph # (Auto) (0358-6642) /uL [place] # (Auto) (0-900) /uL Eos # (Auto) (0-450) /uL Baso # (Auto) (0-100) /uL Platelet Estimate RBC Morphology Macrocytosis ABG pH (7.35-7.45) ABG pCO2 (35-45) mmHg ABG pO2 (80-100) mmHg ABG HCO3 (22-26) mmol/L ABG Total CO2 (21-31) mmol/L ABG O2 Saturation (95-100) % ABG Base Excess (-2-2) mmol/L Sodium (137-145) mmol/L Potassium (3.4-5.1) mmol/L Chloride (98-107) mmol/L Carbon Dioxide (22-32) mmol/L BUN (7-17) mg/dL Creatinine (0.52-1.04) mg/dL Estimated GFR (>60) mL/min BUN/Creatinine Ratio (6-22) Glucose (70-100) mg/dL Hemoglobin A1c > 14.0 H (4.0-6.0) % Lactate 1.8 (0.7-2.1) mmol/L Calcium (8.4-10.2) mg/dL Magnesium (1.6-2.3) mg/dL Total Bilirubin (0.2-1.3) mg/dL AST (14-36) IU/L ALT (<35) IU/L Alkaline Phosphatase (38-126) U/L Troponin I (0.01-0.034) ng/mL Total Protein (6.3-8.2) g/dL Albumin (3.5-5.0) g/dL Globulin (1.7-4.1) g/dL Albumin/Globulin Ratio (1.0-2.8) Urine Color Yellow Urine Appearance Sl cloudy Urine pH 5.0 (4.5-8.0) Ur Specific [place] 1.020 (1.000-1.035) Urine Protein 1+ H (Negative) Urine Glucose (UA) 2+ H (Negative) g/dL Urine Ketones 3+ H (NEGATIVE) Urine Occult Blood 2+ H (Negative) Urine Nitrate Negative (Negative) Urine Bilirubin Negative (NEGATIVE) Urine Urobilinogen 0.2 (0.2) E.U./dL Ur Leukocyte Esterase Negative (NEGATIVE) Urine RBC None seen (0-5/HPF) Urine WBC 0-1/hpf (0-5/HPF) Amorphous Sediment 2+ Urine Bacteria Many (>30) H (None) Ur Culture Indicated? Cult not indicated Urine Test (Negative) Ketones (<0.27) mmol/L COVID-19 PCR (Negative) 02/01/20 02/01/20 Range/Units 06:25 06:44 WBC (4.5-11.0) X10^3/uL RBC (4.0-5.2) X10^6/uL Hgb (12.0-16.0) g/dL Hct (36-46) % MCV (80-100) fL MCH (26-34) PG MCHC (30-36) % RDW (11.6-14.8) % Plt Count (150-400) X10^3/uL Neut % (Auto) (50-75) % Lymph % (Auto) (25-40) % [place] % (Auto) (3-14) % Eos % (Auto) (2-4) % Baso % (Auto) (0-2) % Neut # (Auto) (4743-1150) /uL Lymph # (Auto) (0935-7159) /uL [place] # (Auto) (0-900) /uL Eos # (Auto) (0-450) /uL Baso # (Auto) (0-100) /uL Platelet Estimate RBC Morphology Macrocytosis ABG pH (7.35-7.45) ABG pCO2 (35-45) mmHg ABG pO2 (80-100) mmHg ABG HCO3 (22-26) mmol/L ABG Total CO2 (21-31) mmol/L ABG O2 Saturation (95-100) % ABG Base Excess (-2-2) mmol/L Sodium (137-145) mmol/L Potassium (3.4-5.1) mmol/L Chloride (98-107) mmol/L Carbon Dioxide (22-32) mmol/L BUN (7-17) mg/dL Creatinine (0.52-1.04) mg/dL Estimated GFR (>60) mL/min BUN/Creatinine Ratio (6-22) Glucose (70-100) mg/dL Hemoglobin A1c (4.0-6.0) % Lactate (0.7-2.1) mmol/L Calcium (8.4-10.2) mg/dL Magnesium (1.6-2.3) mg/dL Total Bilirubin (0.2-1.3) mg/dL AST (14-36) IU/L ALT (<35) IU/L Alkaline Phosphatase (38-126) U/L Troponin I (0.01-0.034) ng/mL Total Protein (6.3-8.2) g/dL Albumin (3.5-5.0) g/dL Globulin (1.7-4.1) g/dL Albumin/Globulin Ratio (1.0-2.8) Urine Color Urine Appearance Urine pH (4.5-8.0) Ur Specific [place] (1.000-1.035) Urine Protein (Negative) Urine Glucose (UA) (Negative) g/dL Urine Ketones (NEGATIVE) Urine Occult Blood (Negative) Urine Nitrate (Negative) Urine Bilirubin (NEGATIVE) Urine Urobilinogen (0.2) E.U./dL Ur Leukocyte Esterase (NEGATIVE) Urine RBC (0-5/HPF) Urine WBC (0-5/HPF) Amorphous Sediment Urine Bacteria (None) Ur Culture Indicated? Urine Test Negative (Negative) Ketones (<0.27) mmol/L COVID-19 PCR Negative (Negative) Point of Care Testing Glucose POC 403 Point of care testing: Point of Care Testing Glucose POC 403 ECG Data Attestation: I personally reviewed and interpreted this ECG as follows: Interpretation: Repeat EKG at 7:46 a.m.. Sinus tachycardia. No ST elevation. Ventricular rate 172. MDM Narrative Medical decision making narrative: Patient admitted to ICU here. Reviewed with attending Dr. arita. EKG repeat likely reflecting severe hypokalemia and dehydration DKA. At this time no chest pain. No dyspnea. No hypotension. No hypoxia. Will need fluid rehydration for improvement <José Light MD - Last Filed: 02/01/20 13:31> Critical Care Time Total Critical Care Time: 30 Attestation: Critical Care Time 30 minutes: Critical care time is separate from other billable procedures. This critical care time includes consultation with family and other consulting doctors, review of records, and interpretation of data from labs, EKGs, imaging, etc. Discharge Plan Departure Patient Disposition: Admitted As Inpatient Clinical Impression: Diabetes mellitus type I Qualifiers: Diabetes mellitus complication status: with other specified complication Qualified Code(s): E10.69 - Type 1 diabetes mellitus with other specified complication Hypothermia Qualifiers: Encounter type: initial encounter Qualified Code(s): T68.XXXA - Hypothermia, initial encounter Discharge Date/Time: 02/01/20 08:32 Admit Date/Time: 02/01/20 08:01 Admit Provider: Gale Arita
--- NOTE | 2020-02-01 05:35 | DI.RAD.S_ITS ---
PROCEDURE: XR CHEST 1V INDICATIONS: post central line chest TECHNIQUE: One view of the chest was acquired. COMPARISON: [facility], CT, CT ABDOMEN PELVIS W CON, 12/11/2019, 18:48. [facility], CR, XR CHEST 1V, 11/22/2019, 15:38. FINDINGS: Surgical changes and devices: There is a right IJ central line with the tip projecting to the area of superior vena cava. Lungs and pleura: Lungs are clear. No pleural effusions or pneumothorax. Mediastinum: Mediastinal contours appear normal. Heart size is normal. Bones and chest wall: No suspicious bony lesions. Overlying soft tissues appear unremarkable. IMPRESSION: The tip of the right IJ central line projects to the area of SVC. Dictated by: Keven Dotson M.D. on 02/01/2020 at 9:20 Approved by: Keven Dotson M.D. on 02/01/2020 at 9:21
--- NOTE | 2020-02-01 05:39 | PC.NURSE ---
Unable to obtain PIV access; Dr Drake now prepping to place central line.
[2020-02-01 05:56] LABS: pH ABG 6.86 (7.35-7.45)
[2020-02-01 05:57] LABS: HCO3 ABG 1 mmol/L (22-26); Oxygen Saturation ABG 97 % (95-100); PCO2 ABG 7.8 mmHg (35-45); PO2 ABG 155 mmHg (80-100)
[2020-02-01] MEDS: SODIUM BICARB 8.4% SYRINGE 45 MEQ IV (06:08)
[2020-02-01] MEDS: POTASSIUM CHLORIDE 20 MEQ in SODIUM CHLORIDE 0.9% 250 ML 130 ML IV (06:10)
[2020-02-01] MEDS: INSULIN DRIP PREMIX 100 UNIT/100 ML PLAST..BAG 6 UNIT IV (06:10)
[2020-02-01] MEDS: ONDANSETRON 4 MG/2 ML INJ IV (06:13)
[2020-02-01] MEDS: SODIUM CHLORIDE 0.9% 1,000 ML 2000 ML IV (06:14)
--- NOTE | 2020-02-01 06:17 | PC.NURSE ---
Insulin gtt started at 6 units/hr per order. R triple lumen Subclavian central line placed by Dr Drake, placement comfirmed by mike, ok to use per Dr Drake.
[2020-02-01 06:27] LABS: Alanine Aminotransferase 18 IU/L (<35); Albumin 4.3 g/dL (3.5-5.0); Albumin Globulin Ratio 1.2 (1.0-2.8); Alkaline Phosphatase 191 U/L (38-126); Aspartate Aminotransferase 22 IU/L (14-36); BUN Creatinine Ratio 14.5 (6-22); Bilirubin Total 0.4 mg/dL (0.2-1.3); Blood Urea Nitrogen 16 mg/dL (7-17); Calcium 8.7 mg/dL (8.4-10.2); Chloride 107 mmol/L (98-107); Estimated Glomerular Filt Rate 59.1 mL/min (>60); Globulin 3.6 g/dL (1.7-4.1); HEMOLYSIS < 15 (0-50); Magnesium 2.2 mg/dL (1.6-2.3); Potassium 3.9 mmol/L (3.4-5.1); Sodium 141 mmol/L (137-145); Total Protein 7.9 g/dL (6.3-8.2)
[2020-02-01 06:31] LABS: Lactate (Lactic Acid) 1.8 mmol/L (0.7-2.1)
[2020-02-01 06:36] LABS: Carbon Dioxide < 5 mmol/L (22-32)
[2020-02-01 06:38] LABS: Glucose 619 mg/dL (70-100)
[2020-02-01 06:39] LABS: RBC Urine None Seen (0-5/HPF)
[2020-02-01 06:40] LABS: Basophils Absolute Auto 300 /uL (0-100); Basophils Percent Auto 1.2 % (0-2); Eosinophils Absolute Auto 0 /uL (0-450); Eosinophils Percent Auto 0.2 % (2-4); Hematocrit 45.4 % (36-46); Hemoglobin 14.2 g/dL (12.0-16.0); Lymphocytes Absolute Auto 5100 /uL (1100-4500); Lymphocytes Percent Auto 18.1 % (25-40); Mean Corpuscular HGB Conc 31.2 % (30-36); Mean Corpuscular Hemoglobin 32.2 PG (26-34); Mean Corpuscular Volume 103.3 fL (80-100); Monocytes Absolute Auto 1500 /uL (0-900); Monocytes Percent Auto 5.5 % (3-14); Neutrophils Absolute Auto 21200 /uL (1500-7000); Red Cell Distribution Width 13.8 % (11.6-14.8); White Blood Cell Count 28.2 X10^3/uL (4.5-11.0)
[2020-02-01 06:41] LABS: Add Manual Diff / Slide Review SLIDE REVIEW
[2020-02-01 06:47] LABS: Appearance Urine UA SL CLOUDY; Bilirubin Urine UA NEGATIVE (NEGATIVE); Color Urine UA YELLOW; Glucose Urine UA 2+ g/dL (Negative); Ketones Urine UA 3+ (NEGATIVE); Leukocyte Esterase Urine UA NEGATIVE (NEGATIVE); Nitrite Urine UA NEGATIVE (Negative); Occult Blood Urine UA 2+ (Negative); Protein Urine UA 1+ (Negative); Urobilinogen Urine UA 0.2 E.U./dL (0.2)
--- NOTE | 2020-02-01 06:48 | PC.NURSE ---
Dr Drake notified of rectal tem0 93; fluids placed on warmer and active warming blanket placed on patient.
[2020-02-01 06:51] LABS: Ketones (Beta-Hydroxybutyrate) 17.59 mmol/L (<0.27)
[2020-02-01 06:53] LABS: Amorphous Sediment Urine 2+; Bacteria Urine Many (>30); Culture Indicated Urine Cult Not Indicated; Pregnancy Test Urine Negative (Negative); WBC Urine 0-1/HPF (0-5/HPF)
[2020-02-01] MEDS: CEFTRIAXONE 2 GM/50 ML FROZ.PIGGY IV (06:53)
[2020-02-01 06:56] LABS: Troponin I < 0.012 ng/mL (0.01-0.034)
[2020-02-01 07:18] LABS: Macrocytosis 1+; Platelet Estimate Increased on smear
[2020-02-01 07:19] LABS: Platelet Count 527 X10^3/uL (150-400)
[2020-02-01 07:28] LABS: COVID19 -Nasal RAPID Negative (Negative)
[2020-02-01] MEDS: SODIUM CHLORIDE 0.9% 1,000 ML 1000 ML IV ×2 (07:32→09:59)
--- NOTE | 2020-02-01 07:42 | PC.NURSE ---
patient heart rate incresed to 170bpm, provider notified, ekg being performed.
[2020-02-01 09:07] LABS: Alanine Aminotransferase 15 IU/L (<35); Albumin 3.5 g/dL (3.5-5.0); Albumin Globulin Ratio 1.1 (1.0-2.8); Alkaline Phosphatase 140 U/L (38-126); Aspartate Aminotransferase 23 IU/L (14-36); BUN Creatinine Ratio 19.7 (6-22); Bilirubin Total 0.3 mg/dL (0.2-1.3); Blood Urea Nitrogen 14 mg/dL (7-17); Estimated Glomerular Filt Rate > 60.0 mL/min (>60); Globulin 3.2 g/dL (1.7-4.1); Glucose 297 mg/dL (70-100); HEMOLYSIS < 15 (0-50); Potassium 3.3 mmol/L (3.4-5.1); Sodium 149 mmol/L (137-145); Total Protein 6.7 g/dL (6.3-8.2)
[2020-02-01 09:26] LABS: Chloride 122 mmol/L (98-107)
[2020-02-01 09:27] LABS: Calcium 6.9 mg/dL (8.4-10.2); Carbon Dioxide < 5 mmol/L (22-32)
[2020-02-01] MEDS: POTASSIUM CHLORIDE 40 MEQ in SODIUM CHLORIDE 0.9% 500 ML 130 ML IV ×2 (10:00→20:51)
[2020-02-01] MEDS: SODIUM BICARB IV (10:25)
[2020-02-01] MEDS: WATER FOR INJECTION STERILE IV (10:25)
[2020-02-01] MEDS: DEXTROSE 10 % IN WATER 1,000 ML 45 ML IV (11:15)
[2020-02-01] MEDS: diphenhydrAMINE 50 MG/ML VIAL 25 MG IV ×2 (12:17→23:46)
[2020-02-01] MEDS: HYDROMORPHONE 2 MG INJ 1 MG IV ×3 (12:18→23:48)
[2020-02-01 13:07] LABS: HCO3 VBG 5 mmol/L (23-28); PCO2 VBG 16.5 mmHg (45-50); PO2 VBG 41 mmHg (35-45); pH VBG 7.12 (7.33-7.43)
[2020-02-01 13:08] LABS: Total CO2 VBG 6 mmol/L (24-29)
[2020-02-01 14:02] LABS: Hemoglobin A1C% w Est Avg Glu > 14.0 % (4.0-6.0)
[2020-02-01] MEDS: BACITRACIN OINT 0.9 GM PCKT 1 APPLIC TOP (14:21)
[2020-02-01 14:26] LABS: Add Manual Diff / Slide Review NO; Basophils Absolute Auto 200 /uL (0-100); Basophils Percent Auto 0.9 % (0-2); Eosinophils Absolute Auto 0 /uL (0-450); Hematocrit 33.9 % (36-46); Hemoglobin 11.2 g/dL (12.0-16.0); Lymphocytes Absolute Auto 1700 /uL (1100-4500); Lymphocytes Percent Auto 9.1 % (25-40); Mean Corpuscular HGB Conc 33.2 % (30-36); Mean Corpuscular Hemoglobin 32.1 PG (26-34); Mean Corpuscular Volume 96.7 fL (80-100); Monocytes Absolute Auto 1700 /uL (0-900); Monocytes Percent Auto 9.2 % (3-14); Neutrophils Absolute Auto 15200 /uL (1500-7000); Neutrophils Percent Auto 80.8 % (50-75); Platelet Count 320 X10^3/uL (150-400); Red Cell Distribution Width 13.4 % (11.6-14.8); White Blood Cell Count 18.8 X10^3/uL (4.5-11.0)
--- NOTE | 2020-02-01 14:26 | PC.NURSE ---
Addendum entered by Taylor Ceja R.N. 02/01/20 14:50: repeat VBG shows ph =[phone] Original Note: pt admitted to room 226 at 0830 from ed- hypothermic and bear hugger placed, pt very pale and hr 180 sinus tach- very few words spoken by pt. triple lumen cvl to right subclavian patent and ivf infusing at 999/h as well as insulin at 6u/h- 9 adolph to crown of head due to recent revision of wound - triple antibiotic ointment applied. After following dka protocol we have been able to wean insulin down to 0.9 units/h - she has received kcl rider ( 40 meq) 2 amps of bicarb and several liters of ns- clark patent with large amount of pale clear urine output- temperature has regulated and is presently 98.8 per axillary probe- bear hugger removed but remains in room- heart rate decreased to 128/h and room air spo2 98%- pt has been intermittently tearful and c/o pain- mostly abd and medicated with iv dilaudid/benedryl- her admission hgb a1c >14. Update to her mother over the phone
[2020-02-01 14:40] LABS: BUN Creatinine Ratio 18.2 (6-22); Blood Urea Nitrogen 12 mg/dL (7-17); Calcium 6.7 mg/dL (8.4-10.2); Estimated Glomerular Filt Rate > 60.0 mL/min (>60); Glucose 130 mg/dL (70-100); HEMOLYSIS < 15 (0-50); Lactate (Lactic Acid) 0.5 mmol/L (0.7-2.1); Sodium 150 mmol/L (137-145)
[2020-02-01] MEDS: NEOMYCIN/POLYMYX/BACITRAC 28.35 GM OINT 1 APPLIC TOP ×2 (14:40→20:56)
[2020-02-01] MEDS: POTASSIUM CHLORIDE 20 MEQ in SODIUM CHLORIDE 0.45% 1,000 ML 200 MEQ IV (14:40)
[2020-02-01] MEDS: INSULIN REGULAR, HUMAN 100 UNIT in SODIUM CHLORIDE 0.9% 100 ML IV ×2 (14:45→16:02)
[2020-02-01 15:03] LABS: Chloride 127 mmol/L (98-107)
[2020-02-01 15:04] LABS: Carbon Dioxide 5 mmol/L (22-32)
[2020-02-01] MEDS: DEXTROSE 5%-0.45% NS 1,000 ML 67.5 ML IV (15:17)
[2020-02-01 16:09] LABS: Oxygen Saturation VBG 61 % (70-75)
[2020-02-01] MEDS: POTASSIUM CHLORIDE 20 MEQ in SODIUM CHLORIDE 0.45% 1,000 ML 125 MEQ IV ×2 (17:27→20:59)
--- NOTE | 2020-02-01 18:12 | PM.HP.1 ---
History of Present Illness History of Present Illness Date Patient Seen: 02/01/20 Chief complaint: ketoacidosis Narrative: Claudia Jimenes is a 30-year-old female with type 1 diabetes well-known to the hospitalist team who reports a 1 day history of abdominal pain. She states she has been taking her insulin as prescribed however her significant other notes that she has been taking the try see above but not taking her bolus insulin with meals. In any event she presents with abdominal pain, DKA, severe acidosis, markedly elevated white count, tachycardia, and recurrent diabetic ketoacidosis. Patient had no precipitating event. She has injury to her scalp and has sutures in place. She was seen by the surgeon for that several days ago. She has had nausea and dry heaves but no actual vomiting. She has not vomited up blood. She has had no blood out her bottom. She denies any shortness of breath. It she complains of aching all over pain she complains of diffuse abdominal pain. She has not lost any weight. She has had no fever or chills. She was evaluated in the emergency room and found to have severe diabetic ketoacidosis with a pH of 6.86 on admission. She received IV fluids, insulin drip, IV antibiotics and was admitted to the hospital. Patient History Medical History DKA (diabetic ketoacidoses) (Resolved) History of pyelonephritis (Resolved) Irregular menstrual cycle (Acute) Migraine headache (Chronic) Nephrolithiasis (Resolved) Type 1 diabetes mellitus (Chronic) Surgical History History of ureter stent (Resolved) Hx of local excision of skin lesion (Acute) Status post laser lithotripsy of ureteral calculus (Acute) [place] teeth extracted (Acute) Family & Social History Family History Father In good health Mother Cardiac disease Social History: household members significant other,family Prior Living Arrangements House Safety & Behavioral: Feels Safe in Current Yes Environment Been Physically Hurt or No Threatened By a Person Suicidal Ideation Description None Suicide Plan Description No Plan Tobacco & Substance use: Smoking Status Never smoker alcohol intake current alcohol intake frequency 0-2 drinks per day Substance Use Type does not use Meds Home Medications and Allergies Home Medications Medication Instructions Recorded Confirmed Type glucose 4 gram PO Q15M PRN #30 tab 12/12/18 01/03/20 Rx Glucagon Emergency Kit (human) 1 mg SUBCUT DIRECTED 02/16/19 01/03/20 History insulin degludec 50 unit SUBCUT DAILY 11/21/19 01/03/20 History insulin aspart U-100 [Novolog 13 unit SUBCUT AC 01/03/20 01/03/20 History Flexpen U-100 Insulin] Allergies Allergy/AdvReac Type Severity Reaction Status Date / Time arredondo [ARREDONDO] Allergy Intermediate Hives, Verified 12/11/19 16:55 pruritus iodine [IODINE] Allergy Intermediate rash, itchy Verified 12/11/19 16:55 morphine Allergy Intermediate Difficulty Verified 12/11/19 16:55 Breathing shellfish derived Allergy Intermediate rash Verified 12/11/19 16:55 [SHELLFISH DERIVED] adhesive [ADHESIVE] Allergy Unknown tape Verified 12/11/19 16:55 latex [LATEX] Allergy Unknown Hives Verified 12/11/19 16:55 Review of Systems Review of Systems ROS: Yes All systems reviewed with the patient and are negative except as otherwise documented Exam Vital Signs (past 8 hours): - 02/01/20 10:30 02/01/20 11:00 02/01/20 11:30 Temperature 98.1 F 98.1 F Pulse Rate 183 H 180 H 130 H Respiratory Rate 25 H 23 24 Blood Pressure 118/79 Pulse Oximetry 100 100 100 02/01/20 12:00 02/01/20 12:30 02/01/20 13:00 Temperature 99.0 F 99.0 F Pulse Rate 134 H 130 H 128 H Respiratory Rate 15 16 16 Blood Pressure 117/79 98/55 L Pulse Oximetry 100 99 99 02/01/20 13:30 02/01/20 14:00 02/01/20 14:30 Temperature 98.8 F Pulse Rate 123 H 126 H 128 H Respiratory Rate 9 L 11 L 15 Blood Pressure 101/56 L Pulse Oximetry 98 98 98 02/01/20 15:00 02/01/20 16:00 02/01/20 17:00 Temperature 98.6 F 98.8 F 98.8 F Pulse Rate 125 H 124 H 101 H Respiratory Rate 16 14 14 Blood Pressure 101/68 101/68 Pulse Oximetry 99 100 98 Oxygen Delivery Method Room Air Narrative Exam Narrative: Ill-appearing frail pale female lying in bed moaning in pain HEENT: Normocephalic, sutures over the left scalp, there is no erythema or exudate oropharynx reveals dry mucous membranes, right neck with central line in place Lungs: Decreased breath sounds, clear to auscultation Cardiac exam: Tachycardic regular rate and rhythm normal S1-S2 Abdomen: Soft, diffusely tender, no palpable masses no rebound tenderness no board-like rigidity Extremities no edema Neuro exam moaning female, moves all extremities exam is nonfocal Objective Labs Result Diagrams: 02/01/20 14:00 02/01/20 14:00 Labs: Laboratory Results - last 24 hr 02/01/20 02/01/20 02/01/20 05:25 05:50 05:50 WBC 28.2 H RBC 4.40 Hgb 14.2 Hct 45.4 MCV 103.3 H MCH 32.2 MCHC 31.2 RDW 13.8 Plt Count 527 H Neut % (Auto) 75.0 Lymph % (Auto) 18.1 L [place] % (Auto) 5.5 Eos % (Auto) 0.2 L Baso % (Auto) 1.2 Neut # (Auto) 02864 H Lymph # (Auto) 5100 H [place] # (Auto) 1500 H Eos # (Auto) 0 Baso # (Auto) 300 H Platelet Estimate Increased on smear RBC Morphology See below Macrocytosis 1+ H ABG pH 6.86 L* ABG pCO2 7.8 L* ABG pO2 155 H ABG HCO3 1 L ABG Total CO2 5 L ABG O2 Saturation 97 ABG Base Excess -30.0 L VBG pH VBG pCO2 VBG pO2 VBG HCO3 VBG Total CO2 VBG O2 Saturation VBG Base Excess Sodium 141 Potassium 3.9 Chloride 107 Carbon Dioxide < 5 L* BUN 16 Creatinine 1.10 H Estimated GFR 59.1 L BUN/Creatinine Ratio 14.5 Glucose 619 H* Hemoglobin A1c Lactate Calcium 8.7 Magnesium 2.2 Total Bilirubin 0.4 AST 22 ALT 18 Alkaline Phosphatase 191 H Troponin I < 0.012 Total Protein 7.9 Albumin 4.3 Globulin 3.6 Albumin/Globulin Ratio 1.2 Urine Color Urine Appearance Urine pH Ur Specific [place] Urine Protein Urine Glucose (UA) Urine Ketones Urine Occult Blood Urine Nitrate Urine Bilirubin Urine Urobilinogen Ur Leukocyte Esterase Urine RBC Urine WBC Amorphous Sediment Urine Bacteria Ur Culture Indicated? Urine Test Nasal Screen MRSA (PCR) Ketones 17.59 H COVID-19 PCR 02/01/20 02/01/20 02/01/20 05:50 05:50 06:25 WBC RBC Hgb Hct MCV MCH MCHC RDW Plt Count Neut % (Auto) Lymph % (Auto) [place] % (Auto) Eos % (Auto) Baso % (Auto) Neut # (Auto) Lymph # (Auto) [place] # (Auto) Eos # (Auto) Baso # (Auto) Platelet Estimate RBC Morphology Macrocytosis ABG pH ABG pCO2 ABG pO2 ABG HCO3 ABG Total CO2 ABG O2 Saturation ABG Base Excess VBG pH VBG pCO2 VBG pO2 VBG HCO3 VBG Total CO2 VBG O2 Saturation VBG Base Excess Sodium Potassium Chloride Carbon Dioxide BUN Creatinine Estimated GFR BUN/Creatinine Ratio Glucose Hemoglobin A1c > 14.0 H Lactate 1.8 Calcium Magnesium Total Bilirubin AST ALT Alkaline Phosphatase Troponin I Total Protein Albumin Globulin Albumin/Globulin Ratio Urine Color Yellow Urine Appearance Sl cloudy Urine pH 5.0 Ur Specific [place] 1.020 Urine Protein 1+ H Urine Glucose (UA) 2+ H Urine Ketones 3+ H Urine Occult Blood 2+ H Urine Nitrate Negative Urine Bilirubin Negative Urine Urobilinogen 0.2 Ur Leukocyte Esterase Negative Urine RBC None seen Urine WBC 0-1/hpf Amorphous Sediment 2+ Urine Bacteria Many (>30) H Ur Culture Indicated? Cult not indicated Urine Test Nasal Screen MRSA (PCR) Ketones COVID-19 PCR 02/01/20 02/01/20 02/01/20 06:25 06:44 08:51 WBC RBC Hgb Hct MCV MCH MCHC RDW Plt Count Neut % (Auto) Lymph % (Auto) [place] % (Auto) Eos % (Auto) Baso % (Auto) Neut # (Auto) Lymph # (Auto) [place] # (Auto) Eos # (Auto) Baso # (Auto) Platelet Estimate RBC Morphology Macrocytosis ABG pH ABG pCO2 ABG pO2 ABG HCO3 ABG Total CO2 ABG O2 Saturation ABG Base Excess VBG pH VBG pCO2 VBG pO2 VBG HCO3 VBG Total CO2 VBG O2 Saturation VBG Base Excess Sodium 149 H Potassium 3.3 L Chloride 122 H* Carbon Dioxide < 5 L* BUN 14 Creatinine 0.71 Estimated GFR > 60.0 BUN/Creatinine Ratio 19.7 Glucose 297 H D Hemoglobin A1c Lactate Calcium 6.9 L Magnesium Total Bilirubin 0.3 AST 23 ALT 15 Alkaline Phosphatase 140 H Troponin I Total Protein 6.7 Albumin 3.5 Globulin 3.2 Albumin/Globulin Ratio 1.1 Urine Color Urine Appearance Urine pH Ur Specific [place] Urine Protein Urine Glucose (UA) Urine Ketones Urine Occult Blood Urine Nitrate Urine Bilirubin Urine Urobilinogen Ur Leukocyte Esterase Urine RBC Urine WBC Amorphous Sediment Urine Bacteria Ur Culture Indicated? Urine Test Negative Nasal Screen MRSA (PCR) Ketones COVID-19 PCR Negative 02/01/20 02/01/20 02/01/20 08:51 12:54 14:00 WBC 18.8 H RBC 3.50 L Hgb 11.2 L Hct 33.9 L MCV 96.7 D MCH 32.1 MCHC 33.2 RDW 13.4 Plt Count 320 Neut % (Auto) 80.8 H Lymph % (Auto) 9.1 L [place] % (Auto) 9.2 Eos % (Auto) 0.0 L Baso % (Auto) 0.9 Neut # (Auto) 26514 H Lymph # (Auto) 1700 [place] # (Auto) 1700 H Eos # (Auto) 0 Baso # (Auto) 200 H Platelet Estimate RBC Morphology Macrocytosis ABG pH ABG pCO2 ABG pO2 ABG HCO3 ABG Total CO2 ABG O2 Saturation ABG Base Excess VBG pH 7.12 L* VBG pCO2 16.5 L VBG pO2 41 VBG HCO3 5 L VBG Total CO2 6 L VBG O2 Saturation 61 L VBG Base Excess -24.0 L Sodium Potassium Chloride Carbon Dioxide BUN Creatinine Estimated GFR BUN/Creatinine Ratio Glucose Hemoglobin A1c Lactate Calcium Magnesium Total Bilirubin AST ALT Alkaline Phosphatase Troponin I Total Protein Albumin Globulin Albumin/Globulin Ratio Urine Color Urine Appearance Urine pH Ur Specific [place] Urine Protein Urine Glucose (UA) Urine Ketones Urine Occult Blood Urine Nitrate Urine Bilirubin Urine Urobilinogen Ur Leukocyte Esterase Urine RBC Urine WBC Amorphous Sediment Urine Bacteria Ur Culture Indicated? Urine Test Nasal Screen MRSA (PCR) Negative for mrsa Ketones COVID-19 PCR 02/01/20 02/01/20 14:00 14:00 WBC RBC Hgb Hct MCV MCH MCHC RDW Plt Count Neut % (Auto) Lymph % (Auto) [place] % (Auto) Eos % (Auto) Baso % (Auto) Neut # (Auto) Lymph # (Auto) [place] # (Auto) Eos # (Auto) Baso # (Auto) Platelet Estimate RBC Morphology Macrocytosis ABG pH ABG pCO2 ABG pO2 ABG HCO3 ABG Total CO2 ABG O2 Saturation ABG Base Excess VBG pH VBG pCO2 VBG pO2 VBG HCO3 VBG Total CO2 VBG O2 Saturation VBG Base Excess Sodium 150 H Potassium 4.0 Chloride 127 H* Carbon Dioxide 5 L* BUN 12 Creatinine 0.66 Estimated GFR > 60.0 BUN/Creatinine Ratio 18.2 Glucose 130 H D Hemoglobin A1c Lactate 0.5 L Calcium 6.7 L Magnesium Total Bilirubin AST ALT Alkaline Phosphatase Troponin I Total Protein Albumin Globulin Albumin/Globulin Ratio Urine Color Urine Appearance Urine pH Ur Specific [place] Urine Protein Urine Glucose (UA) Urine Ketones Urine Occult Blood Urine Nitrate Urine Bilirubin Urine Urobilinogen Ur Leukocyte Esterase Urine RBC Urine WBC Amorphous Sediment Urine Bacteria Ur Culture Indicated? Urine Test Nasal Screen MRSA (PCR) Ketones COVID-19 PCR Assessment & Plan Assessment & Plan narrative: Impression 1. 30-year-old female with type 1 diabetes with multiple admissions for diabetic ketoacidosis -patient presents with profound DKA -pH on arrival 6.86, repeat pH 7.12, initial bicarb less than 5, repeat bicarb is 5 -[place] [id number], now down to 18,000 -abdominal pain improving, suspect related to her DKA, no evidence of acute abdominal injury. -will continue IV insulin, IV fluids, replace electrolytes accordingly -blood sugar improved -consult social given her recurrent issues with medication noncompliance -will consult psychiatry given the multiple admissions to the hospital -will continue empiric antibiotics at this time 2. Scalp lesion, status post resection, healing well -continue Neosporin to the skilled Patient is a full code will note that her record accordingly Will place the patient on DVT prophylaxis
[2020-02-01] MEDS: CALCIUM GLUCONATE 4.65 MEQ in SODIUM CHLORIDE 0.9% 50 ML 180 ML IV (18:16)
[2020-02-01 19:35] LABS: BUN Creatinine Ratio 15.6 (6-22); Blood Urea Nitrogen 10 mg/dL (7-17); Calcium 7.6 mg/dL (8.4-10.2); Carbon Dioxide 10 mmol/L (22-32); Estimated Glomerular Filt Rate > 60.0 mL/min (>60); Glucose 126 mg/dL (70-100); HEMOLYSIS < 15 (0-50); Magnesium 1.5 mg/dL (1.6-2.3); Phosphorous 2.1 mg/dL (2.5-4.5); Potassium 3.6 mmol/L (3.4-5.1); Sodium 150 mmol/L (137-145)
[2020-02-01 19:38] LABS: Chloride 125 mmol/L (98-107)
[2020-02-01] MEDS: MAGNESIUM SULFATE 2 GM/50 ML PIGGYBACK IV (20:17)
--- NOTE | 2020-02-01 22:22 | PC.NURSE ---
shift note: Pt somnilent most of shift, medicated with dilaudid 1mg x1 around 1645, wakes to voice and wimpers but no further c/o pain. Insulin gtt continues titrated for blood sugar, currently at 0.9u/hr. D10W in progress at 45ml/hr, maintenance fluid 1/2NS with 20KCL @ 125/hr. MG and K+ riders given as ordered . Sigala to with pale clear yellow urine, 950cc emptied. Continues tachycardic with rate 120's. Critical labs called to MD -orders received. Will continue to monitor hourly blood sugar and titrate drips accordingly.
[2020-02-02] VITALS (35 sets, daily range): BP systolic 98–122; BP diastolic 58–84; PULSE 86–128; RESP 7–20; TEMP 36.4–37.1; O2SAT 96–100
--- NOTE | 2020-02-02 00:12 | PC.NURSE ---
Addendum entered by Nimisha Strong R.N. 02/02/20 06:30: Unable to do med review at this time, pt refusing to answer questions at this time. Original Note: Pt alert and oriented. Crying in bed, reports pain. Pt reports she needs benedryl with Dilaudid or she gets itching. Dilaudid and benedryl given as ordered. Pt now resting in bed without complaints. No change to insulin gtt at 0000 per protocol. Sigala catheter draining and intact. Pt running ST on tele, LUNG PULLER aware. O2 sats stable at 96% on RA. No complaints at this time. WCTM
[2020-02-02 01:28] LABS: BUN Creatinine Ratio 15.8 (6-22); Blood Urea Nitrogen 9 mg/dL (7-17); Calcium 7.6 mg/dL (8.4-10.2); Carbon Dioxide 12 mmol/L (22-32); Estimated Glomerular Filt Rate > 60.0 mL/min (>60); Glucose 136 mg/dL (70-100); HEMOLYSIS < 15 (0-50); Sodium 147 mmol/L (137-145)
[2020-02-02 01:30] LABS: Chloride 125 mmol/L (98-107)
[2020-02-02 01:37] LABS: Magnesium 2.1 mg/dL (1.6-2.3); Phosphorous 1.9 mg/dL (2.5-4.5)
[2020-02-02] MEDS: TRAMADOL 50 MG TABLET 100 MG PO ×3 (03:33→10:17)
[2020-02-02] MEDS: POTASSIUM CHLORIDE 20 MEQ in SODIUM CHLORIDE 0.45% 1,000 ML 125 MEQ IV (05:10)
[2020-02-02 05:13] LABS: Add Manual Diff / Slide Review NO; Basophils Absolute Auto 100 /uL (0-100); Basophils Percent Auto 0.6 % (0-2); Eosinophils Absolute Auto 0 /uL (0-450); Eosinophils Percent Auto 0.2 % (2-4); Hemoglobin 11.2 g/dL (12.0-16.0); Lymphocytes Absolute Auto 900 /uL (1100-4500); Lymphocytes Percent Auto 9.5 % (25-40); Mean Corpuscular Volume 94.1 fL (80-100); Monocytes Absolute Auto 700 /uL (0-900); Monocytes Percent Auto 7.9 % (3-14); Neutrophils Absolute Auto 7500 /uL (1500-7000); Neutrophils Percent Auto 81.8 % (50-75); Platelet Count 296 X10^3/uL (150-400); Red Blood Cell Count 3.51 X10^6/uL (4.0-5.2); Red Cell Distribution Width 13.8 % (11.6-14.8); White Blood Cell Count 9.2 X10^3/uL (4.5-11.0)
[2020-02-02 05:20] LABS: Alanine Aminotransferase 60 IU/L (<35); Albumin 2.9 g/dL (3.5-5.0); Albumin Globulin Ratio 1.1 (1.0-2.8); Alkaline Phosphatase 319 U/L (38-126); Aspartate Aminotransferase 245 IU/L (14-36); BUN Creatinine Ratio 13.7 (6-22); Bilirubin Total 0.3 mg/dL (0.2-1.3); Blood Urea Nitrogen 7 mg/dL (7-17); Calcium 7.8 mg/dL (8.4-10.2); Carbon Dioxide 13 mmol/L (22-32); Estimated Glomerular Filt Rate > 60.0 mL/min (>60); Globulin 2.7 g/dL (1.7-4.1); Glucose 133 mg/dL (70-100); HEMOLYSIS < 15 (0-50); Potassium 3.4 mmol/L (3.4-5.1); Sodium 145 mmol/L (137-145); Total Protein 5.6 g/dL (6.3-8.2)
[2020-02-02 05:23] LABS: Chloride 122 mmol/L (98-107)
[2020-02-02 05:31] LABS: Phosphorous 1.7 mg/dL (2.5-4.5)
[2020-02-02] MEDS: POTASSIUM CHLORIDE 40 MEQ in SODIUM CHLORIDE 0.9% 500 ML 130 ML IV (05:44)
[2020-02-02 06:12] LABS: Thyroid Stimulating Hormone 0.938 uIU/mL (0.47-4.68)
[2020-02-02] MEDS: NEOMYCIN/POLYMYX/BACITRAC 28.35 GM OINT 1 APPLIC TOP ×3 (09:10→22:23)
[2020-02-02] MEDS: TRESIBA 50 UNIT 50 EACH SUBCUT (10:16)
[2020-02-02] MEDS: ONDANSETRON 4 MG/2 ML INJ IV ×2 (10:42→23:34)
--- NOTE | 2020-02-02 14:26 | PC.NURSE ---
Addendum entered by Susie Parrish R.N. 02/02/20 14:44: Sigala catheter discontinued at 1440 without issue. Original Note: Day Shift Note Pt oriented x3, drowsy and tearful/crying when awake. Is able to make needs known and is cooperative with care. Reports pain all over, medicated with tramadol per emar. Pt on insulin gtt and IV fluids per DKA protocol. Tresiba 50 units given per protocol at 1015 and insulin gtt and all IV fluids discontinued at [address] Arita. Triple lumen subclavian central line patent, heplocked, line to remain in place at this time due to poor access and possible d/c home tomorrow. Dr. Alvarez at bedside at this time. Call light within reach, using appropriately to make needs known.
[2020-02-02 14:51] LABS: Osmolality, Serum 336 mOsmol/kg (275-295)
--- NOTE | 2020-02-02 15:07 | PM.PN.1 ---
Subjective Subjective Date Patient Seen: 02/02/20 Interval history: Patient is a 30-year-old female who was admitted to the hospital yesterday for DKA. Overnight she has continued to get IV hydration. With continuous insulin infusion she has had improvement of her anion gap. Her hyperglycemia has resolved. As well as her acidosis. Today she has no further abdominal pain. She is at times weepy. She has had her diet advanced to liquid diet. Exam Vital Signs (past 8 hours): - 02/02/20 08:00 02/02/20 09:00 02/02/20 10:00 Temperature 98.3 F Pulse Rate 112 H 111 H 107 H Respiratory Rate 10 L 10 L 13 Blood Pressure 110/69 112/66 112/72 Pulse Oximetry 98 98 99 02/02/20 11:00 02/02/20 12:00 Temperature 98.3 F Pulse Rate 104 H 109 H Respiratory Rate 11 L 12 Blood Pressure 116/81 110/73 Pulse Oximetry 98 99 Oxygen Delivery Method Room Air Oxygen Flow Rate 0 Narrative Exam Narrative: Pleasant ill-appearing female resting comfortably in no obvious distress Lungs: Clear to auscultation Cardiac exam: Tachycardic regular rate and rhythm normal S1-S2 Abdomen: Soft nontender nondistended Extremities: No edema Objective Labs Result Diagrams: 02/02/20 05:00 02/02/20 05:00 Labs: Laboratory Results - last 24 hr 02/01/20 02/01/20 02/01/20 05:50 12:54 19:00 WBC RBC Hgb Hct MCV MCH MCHC RDW Plt Count Neut % (Auto) Lymph % (Auto) [place] % (Auto) Eos % (Auto) Baso % (Auto) Neut # (Auto) Lymph # (Auto) [place] # (Auto) Eos # (Auto) Baso # (Auto) VBG O2 Saturation 61 L Sodium 150 H Potassium 3.6 Chloride 125 H* Carbon Dioxide 10 L BUN 10 Creatinine 0.64 Estimated GFR > 60.0 BUN/Creatinine Ratio 15.6 Glucose 126 H Serum Osmolality 336 H Calcium 7.6 L Phosphorus 2.1 L Magnesium 1.5 L Total Bilirubin AST ALT Alkaline Phosphatase Total Protein Albumin Globulin Albumin/Globulin Ratio TSH 02/02/20 02/02/20 02/02/20 01:00 05:00 05:00 WBC 9.2 D RBC 3.51 L Hgb 11.2 L Hct 33.0 L MCV 94.1 MCH 32.0 MCHC 34.0 RDW 13.8 Plt Count 296 Neut % (Auto) 81.8 H Lymph % (Auto) 9.5 L [place] % (Auto) 7.9 Eos % (Auto) 0.2 L Baso % (Auto) 0.6 Neut # (Auto) 7500 H Lymph # (Auto) 900 L [place] # (Auto) 700 Eos # (Auto) 0 Baso # (Auto) 100 VBG O2 Saturation Sodium 147 H 145 Potassium 4.0 3.4 Chloride 125 H* 122 H* Carbon Dioxide 12 L 13 L BUN 9 7 Creatinine 0.57 0.51 L Estimated GFR > 60.0 > 60.0 BUN/Creatinine Ratio 15.8 13.7 Glucose 136 H 133 H Serum Osmolality Calcium 7.6 L 7.8 L Phosphorus 1.9 L Magnesium 2.1 Total Bilirubin 0.3 AST 245 H ALT 60 H Alkaline Phosphatase 319 H D Total Protein 5.6 L Albumin 2.9 L Globulin 2.7 Albumin/Globulin Ratio 1.1 TSH 02/02/20 02/02/20 05:00 05:00 WBC RBC Hgb Hct MCV MCH MCHC RDW Plt Count Neut % (Auto) Lymph % (Auto) [place] % (Auto) Eos % (Auto) Baso % (Auto) Neut # (Auto) Lymph # (Auto) [place] # (Auto) Eos # (Auto) Baso # (Auto) VBG O2 Saturation Sodium Potassium Chloride Carbon Dioxide BUN Creatinine Estimated GFR BUN/Creatinine Ratio Glucose Serum Osmolality Calcium Phosphorus 1.7 L Magnesium Total Bilirubin AST ALT Alkaline Phosphatase Total Protein Albumin Globulin Albumin/Globulin Ratio TSH 0.938 Assessment & Plan Assessment & Plan narrative: Impression 1. Diabetic ketoacidosis -after continuous infusion of insulin patient has had improved hyperglycemia and improved diabetic ketoacidosis -she has closed her anion gap -she is now back on Tresiba -will continue her pre meal insulin as well -patient was seen today by Dr. sweeney from Psychiatry. There does not appear to be an overlying psychiatric illness. Would recommend continued medical social work support -recommend outpatient follow-up with Endocrinology with possible outpatient psychiatric referral -she remains tachycardic -when she tolerates her advance diet anticipate discharge home in the next 1 day.
--- NOTE | 2020-02-02 15:57 | CM.DANOTE ---
DCP/Assessment: Reviewed chart. Patient is a 30yr old female admitted to [facility] in DKA. No PCP listed. Primary payor is 1)[facility] 2)Medicaid. Met with patient explained [employer] role. Patient is a type I Diabetic. Patient reports that she has been diabetic since the age of 6. Patient alert and oriented at time of visit. Patient resting in bed comfortably. Patient indicates that she currently resides with her grandmother and significant other of 3yrs Reggie. Patient denies any suicidal or homicidal ideation. Patient admits to being depressed on occasion, primarily related to her diabetes. Patient does not drive or work. Patient reports that in a typical day I don't do much. Patient reports that currently she receives no services as outpatient. Patient with multiple admissions to [facility] with DKA. Patient currently goes to [facility] for primary care. Previously, patient saw Dr. Hernandez but reports that he no longer takes her insurance? Patient denies drug or alcohol use. Patient reports that she does have supportive family. Patient provided [employer] with permission to call [facility] to check on outpatient community case management. Placed call and referral has been placed reference# [id number]. [employer] requesting call to discuss outpatient services with registered nurse hh case manager. Urgent request made. P: Anticipate home when stable. TW[employer] to finalize d/c plan which hopefully will include [facility]. RAYMOND Valladares Discharge Planning/Care Management CM Discharge Assessment Start: 02/02/20 14:51 Freq: Status: Active Protocol: Document 02/02/20 15:45 KJS (Rec: 02/02/20 15:57 KJS [id number]) Discharge Planning Assessment Assigned Conveyor Belt Repairer RAYMOND Valladares Contact Information Argelia Malone (Mother) [phone] Advance Directives? No Advance Directives on File No History Provided By Patient,Medical Record Prior Living Arrangements House Household Members significant other,family Type of transporation used prior to Relies on Others admit Comment Patient reports that she has never drove. Patient relies on family and significant other/ Reggie. Independent with ADL's Yes Is patient alert and oriented? Yes Caregiver for Another No Comment Has supportive partner/Reggie and family that live close. Patient currently does not have regular PCP. Patient reports due to insurance she had to give up Dr. Hernandez. Patient currently goes to [facility] in . Discharge Plan Home Transportation Arrangement Significant other can provide transport at d/c. Referrals Initiated Other Whiteboard Updated in Patient Room with Yes name and ext. # of Conveyor Belt Repairer Review Status In Process Next Review Type Continued Stay Review
[2020-02-02] MEDS: INSULIN ASPART 100 UNIT/ML INSULN PEN SUBCUT ×2 (17:09→21:49)
--- NOTE | 2020-02-02 17:59 | P.CONS_ITS ---
History of Present Illness Consult details Date Patient Seen: 02/02/20 Time Patient Seen: 14:10 Chief complaint: ketoacidosis Reason for consult: Rule out depression Requesting provider: Gale Arita Narrative: CHIEF COMPLAINT: ?I am just sick.? HISTORY OF PRESENT ILLNESS: This is the first psychiatric evaluation for this 30-year-old single female referred by Dr. Arita for evaluation of possible depression in the context of extremely poor management of diabetes. The patient?s sikh-spiritual preference, the voluntary nature of the evaluation, and the limits of confidentiality were discussed. Patient was admitted to the ICU 2 days ago after he had another episode of diabetic ketoacidosis. In the last 3 months she has had multiple admissions all for essentially the same reason. She has very brittle type 1 diabetes mellitus and her ability to control her blood sugars and insulin is very poor. There was some concern by Dr. Arita that the patient may be depressed and her poor managem ent of her diabetes is an expression of that and possibly even a passive form of suicide. The patient reports that she has had difficulty managing her blood sugars and has diligently trying her best. She denies any symptoms of depression, anxiety, psychosis, PTSD, abuse, or any other psychiatric symptoms. She currently lives with her grandparents as a means of mutual Benefis since. She can help them with chores that they can not do, while they provide her with a place to live. She also reports that she is currently engaged to be next year and has a good relationship with her fiance. She denies any current difficulties or problems with that relationship. CURRENT SYMPTOMS: Depressive Symptoms: Denies any difficulties Manic Symptoms: Denies any symptoms Anxiety Symptoms: Denies any symptoms of anxiety except for that related to concerns over her health that would be natural with anyone. Psychotic Symptoms: None. PTSD Symptoms: None. PAST PSYCHIATRIC HISTORY: - Diagnoses: None - Inpatient: None - Outpatient: None - Suicide Attempts: None PREVIOUS MEDICATION TRIALS: The patient has no prior history of psychotropic medication treatment. CURRENT PSYCHOTROPIC MEDICATIONS: None PERTINENT FAMILY AND SOCIAL HISTORY FAMILY HISTORY: The patient denies any family history of psychiatric illness SUBSTANCE USE HISTORY: - Tobacco: Non-smoker - Alcohol: The patient denies any history of alcohol abuse or difficulty with alcohol use. - Drugs: The patient does not use drugs. DEVELOPMENTAL AND SOCIAL HISTORY: - Family Constellation/Environment: The patient was born in [place] and raised in [place] until she was 18 when she moved back here to live with her mother. - Childhood Trauma: The patient denied any history of physical or sexual abuse, and has no history of witnessing violence as a child. - Developmental milestones: The patient reached normal developmental milestones. - Education: The patient was an adequate student in school and graduated from high school. 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 - Relationships: Is currently engaged never no children - Current Living: Currently lives with grandparents in [place] - Support: Support from family - Legal: No current legal difficulties. 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 History of pyelonephritis, history of migraines, - Current Medications: See list above - Herbals/Supplements: None. REVIEW OF SYSTEMS: - Review of Systems is unremarkable except for abdominal pain, pain at central line site. - Psych ROS per HPI DATA: - Labs: See chart below Rating Scales: - PHQ9: Not completed - GAD7: Not completed - PCL5: N/A Meds Home Medications and Allergies Home Medications Medication Instructions Recorded Confirmed Type glucose 4 gram PO Q15M PRN #30 tab 12/12/18 02/02/20 Rx Glucagon Emergency Kit (human) 1 mg SUBCUT DIRECTED 02/16/19 02/02/20 History insulin degludec 50 unit SUBCUT DAILY 11/21/19 02/02/20 History insulin aspart U-100 [Novolog 13 unit SUBCUT AC 01/03/20 02/02/20 History Flexpen U-100 Insulin] Allergies Allergy/AdvReac Type Severity Reaction Status Date / Time arredondo [ARREDONDO] Allergy Intermediate Hives, Verified 12/11/19 16:55 pruritus iodine [IODINE] Allergy Intermediate rash, itchy Verified 12/11/19 16:55 morphine Allergy Intermediate Difficulty Verified 12/11/19 16:55 Breathing shellfish derived Allergy Intermediate rash Verified 12/11/19 16:55 [SHELLFISH DERIVED] adhesive [ADHESIVE] Allergy Unknown tape Verified 12/11/19 16:55 latex [LATEX] Allergy Unknown Hives Verified 12/11/19 16:55 Review of Systems Review of Systems ROS: Yes All systems reviewed with the patient and are negative except as otherwise documented Exam Vital Signs (past 8 hours): - 02/02/20 10:00 02/02/20 11:00 02/02/20 12:00 Temperature 98.3 F Pulse Rate 107 H 104 H 109 H Respiratory Rate 13 11 L 12 Blood Pressure 112/72 116/81 110/73 Pulse Oximetry 99 98 99 02/02/20 15:44 02/02/20 16:27 Temperature 98.7 F 98.7 F Pulse Rate 86 86 Respiratory Rate 18 18 Blood Pressure 111/84 111/81 Pulse Oximetry 99 99 Oxygen Delivery Method Room Air Oxygen Flow Rate 0 Psych Other: MENTAL STATUS EXAMINATION: Appearance: The patient is a petite and slight female who was interviewed in her hospital room and seen lying on her hospital bed dressed in h ospital pj's. Behavior: The patient is calm and cooperative with the examination. Eye Contact: Eye contact is good. Speech: Speech is unimpaired with normal rate, rhythm, volume and brayden. Motor Movement: There was no evidence of any psychomotor agitation or retardation. Gait: Not observed Mood: Stated mood is, ?okay.? Affect: Affect is neutral, pleasant, euthymic and even occasionally able to smile. And congruent with content. Range and reactivity are normal. Thought Process: Linear, logical, and goal-directed Thought Content: There was no suicidal or homicidal ideation, intent, or plan; and there was no evidence of a formal thought or perceptual disturbance. Attention: Attentive to interview Orientation: Oriented to person, place, time, and circumstance. Memory: Intact for interview, not formally tested. Judgement: Fair Insight: Fair Impulse Control: Intact Objective Labs Result Diagrams: 02/02/20 05:00 02/02/20 05:00 Labs: Laboratory Results - last 24 hr 02/01/20 02/01/20 02/02/20 05:50 19:00 01:00 WBC RBC Hgb Hct MCV MCH MCHC RDW Plt Count Neut % (Auto) Lymph % (Auto) [place] % (Auto) Eos % (Auto) Baso % (Auto) Neut # (Auto) Lymph # (Auto) [place] # (Auto) Eos # (Auto) Baso # (Auto) Sodium 150 H 147 H Potassium 3.6 4.0 Chloride 125 H* 125 H* Carbon Dioxide 10 L 12 L BUN 10 9 Creatinine 0.64 0.57 Estimated GFR > 60.0 > 60.0 BUN/Creatinine Ratio 15.6 15.8 Glucose 126 H 136 H Serum Osmolality 336 H Calcium 7.6 L 7.6 L Phosphorus 2.1 L 1.9 L Magnesium 1.5 L 2.1 Total Bilirubin AST ALT Alkaline Phosphatase Total Protein Albumin Globulin Albumin/Globulin Ratio TSH 02/02/20 02/02/20 02/02/20 05:00 05:00 05:00 WBC 9.2 D RBC 3.51 L Hgb 11.2 L Hct 33.0 L MCV 94.1 MCH 32.0 MCHC 34.0 RDW 13.8 Plt Count 296 Neut % (Auto) 81.8 H Lymph % (Auto) 9.5 L [place] % (Auto) 7.9 Eos % (Auto) 0.2 L Baso % (Auto) 0.6 Neut # (Auto) 7500 H Lymph # (Auto) 900 L [place] # (Auto) 700 Eos # (Auto) 0 Baso # (Auto) 100 Sodium 145 Potassium 3.4 Chloride 122 H* Carbon Dioxide 13 L BUN 7 Creatinine 0.51 L Estimated GFR > 60.0 BUN/Creatinine Ratio 13.7 Glucose 133 H Serum Osmolality Calcium 7.8 L Phosphorus Magnesium Total Bilirubin 0.3 AST 245 H ALT 60 H Alkaline Phosphatase 319 H D Total Protein 5.6 L Albumin 2.9 L Globulin 2.7 Albumin/Globulin Ratio 1.1 TSH 0.938 02/02/20 05:00 WBC RBC Hgb Hct MCV MCH MCHC RDW Plt Count Neut % (Auto) Lymph % (Auto) [place] % (Auto) Eos % (Auto) Baso % (Auto) Neut # (Auto) Lymph # (Auto) [place] # (Auto) Eos # (Auto) Baso # (Auto) Sodium Potassium Chloride Carbon Dioxide BUN Creatinine Estimated GFR BUN/Creatinine Ratio Glucose Serum Osmolality Calcium Phosphorus 1.7 L Magnesium Total Bilirubin AST ALT Alkaline Phosphatase Total Protein Albumin Globulin Albumin/Globulin Ratio TSH Assessment & Plan Assessment & Plan narrative: ASSESSMENT: Sarabjit Jimenes is a 30-year-old young woman with a long history of insulin- dependent 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 In the last several months, she has been admitted to the hospital approximately once every 2 weeks in diabetic ketoacidosis following very poorly controlled insulin and blood sugars. The patient denies adamantly any difficulty with depression, anxiety, sarita, psychosis, or any other psychiatric symptom. She insists that she is quite ill and that is the only reason for her difficulty recently with frequent hospitalizations. She also apparently notes that her illness has impaired her ability to progress as an adult and find consistent fulfilling work and career. She does have a relationship with a fiancee and reports that this is a fulfilling and good relationship. In short, there appears to be no psychiatric reason for her poor management of diabetes. SAFETY ASSESSMENT: - Risk factors: None apparent - Protective factors: Appears to have good social support - Warning signs: None at this time. - Overall risk assessment: Based on the presence of no suicidal desire; no suicidal intent; no readily available means; and multiple buffers against suicide to include family support, engagement in treatment, safety plan in place; overall level of risk is judged to be low. DIAGNOSES: Rule out depression ? Recommendations 1. Patient requires and does not desire any further psychiatric follow-up at this time 2. No psychiatric medications are recommended at this time. 3. Discussed treatment team concerns regarding her repeated admissions and left open the possibility for further consultation in the future should she wish to avail herself of it. Time Spent With Patient Time with patient: 25 - 35 minutes
--- NOTE | 2020-02-03 | PC.NURSE ---
Report received, care assumed 1530. VSS. A&Ox3, lethargic, tearful at times. Moving independently in the room. No c/o pain other than discomfort at central line site. Blood sugars addressed with sliding scale.
[2020-02-03] MEDS: TRAMADOL 50 MG TABLET 100 MG PO ×3 (00:32→12:44)
--- NOTE | 2020-02-03 00:42 | PC.NURSE ---
Addendum entered by Cary Shah R.N. 02/03/20 06:50: Pt states that Zofran was effective for nausea. Pt eating cheese, crackers and pudding. Pt requesting medication for throat pain 09/29. States Ultram helped earlier. States she also has a headache 09/29. Pt requesting Ultram and Tylenol. Same given per Emar. K+rider 40 meq infusing for K+ 3.2. Original Note: Pt awake and watching tv. C/O slight nausea and requesting medication. Pt medicated with Zofran. Pt stating she would like something for her throat pain. Discussed waiting until Zofran effective and Tramadol could be given. Pt agreeble.
[2020-02-03] MEDS: SODIUM CHLORIDE 0.9% FLUSH 10 ML IV (05:18)
[2020-02-03 05:26] VITALS: BP 128/87; PULSE 102; RESP 18; TEMP 36.1; O2SAT 99
[2020-02-03 05:42] LABS: Add Manual Diff / Slide Review NO; Basophils Absolute Auto 0 /uL (0-100); Basophils Percent Auto 0.7 % (0-2); Eosinophils Absolute Auto 100 /uL (0-450); Eosinophils Percent Auto 1.5 % (2-4); Hematocrit 32.3 % (36-46); Hemoglobin 11.2 g/dL (12.0-16.0); Lymphocytes Absolute Auto 2000 /uL (1100-4500); Lymphocytes Percent Auto 27.9 % (25-40); Mean Corpuscular HGB Conc 34.8 % (30-36); Mean Corpuscular Hemoglobin 32.3 PG (26-34); Mean Corpuscular Volume 92.7 fL (80-100); Monocytes Absolute Auto 500 /uL (0-900); Monocytes Percent Auto 7.7 % (3-14); Neutrophils Absolute Auto 4400 /uL (1500-7000); Neutrophils Percent Auto 62.2 % (50-75); Platelet Count 274 X10^3/uL (150-400); Red Blood Cell Count 3.48 X10^6/uL (4.0-5.2); Red Cell Distribution Width 13.6 % (11.6-14.8); White Blood Cell Count 7.1 X10^3/uL (4.5-11.0)
[2020-02-03 05:49] LABS: Alanine Aminotransferase 36 IU/L (<35); Albumin Globulin Ratio 1.1 (1.0-2.8); Alkaline Phosphatase 272 U/L (38-126); Aspartate Aminotransferase 48 IU/L (14-36); Bilirubin Total 0.3 mg/dL (0.2-1.3); Blood Urea Nitrogen 11 mg/dL (7-17); Calcium 8.2 mg/dL (8.4-10.2); Carbon Dioxide 24 mmol/L (22-32); Chloride 112 mmol/L (98-107); Estimated Glomerular Filt Rate > 60.0 mL/min (>60); Globulin 2.8 g/dL (1.7-4.1); Glucose 84 mg/dL (70-100); HEMOLYSIS < 15 (0-50); Magnesium 1.9 mg/dL (1.6-2.3); Potassium 3.2 mmol/L (3.4-5.1); Sodium 138 mmol/L (137-145); Total Protein 5.8 g/dL (6.3-8.2)
[2020-02-03] MEDS: POTASSIUM CHLORIDE 40 MEQ in SODIUM CHLORIDE 0.9% 500 ML 130 ML IV (06:27)
[2020-02-03 06:33] LABS: Procalcitonin 1.64 ng/mL (<0.5)
[2020-02-03] MEDS: ACETAMINOPHEN 325 MG TABLET 650 MG PO ×2 (06:42→12:44)
[2020-02-03 08:00] VITALS: BP 118/84; PULSE 102; RESP 14; TEMP 36.9; O2SAT 99
[2020-02-03] MEDS: NEOMYCIN/POLYMYX/BACITRAC 28.35 GM OINT 1 APPLIC TOP (10:03)
[2020-02-03] MEDS: CEFTRIAXONE 2 GM/50 ML FROZ.PIGGY IV (10:37)
--- NOTE | 2020-02-03 10:56 | P.DS_ITS ---
History of Present Illness History of Present Illness Date Patient Seen: 02/01/20 Chief complaint: ketoacidosis Narrative: Written by Dr. Arita: Sarabjit Jimenes is a 30-year-old female with type 1 diabetes well-known to the hospitalist team who reports a 1 day history of abdominal pain. She states she has been taking her insulin as prescribed however her significant other notes that she has been taking the try see above but not taking her bolus insulin with meals. In any event she presents with abdominal pain, DKA, severe acidosis, markedly elevated white count, tachycardia, and recurrent diabetic ketoacidosis. Patient had no precipitating event. She has injury to her scalp and has sutures in place. She was seen by the surgeon for that several days ago. She has had nausea and dry heaves but no actual vomiting. She has not vomited up blood. She has had no blood out her bottom. She denies any shortness of breath. It she complains of aching all over pain she complains of diffuse abdominal pain. She has not lost any weight. She has had no fever or chills. She was evaluated in the emergency room and found to have severe diabetic ketoacidosis with a pH of 6.86 on admission. She received IV fluids, insulin drip, IV antibiotics and was admitted to the hospital. 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 Acute diabetic ketoacidosis, in the setting of uncontrolled diabetes mellitus type 1, present on admission.? DKA resolved. 2. History of scalp abscess status post I&D and recent closure with possible infection, chronic, present on admission.? Stable. Hospital Course: Sarabjit Jimenes is a 30-year-old female with a past medical history significant for type 1 diabetes with recurrent DKA, prior fungal pyelolithiasis, and recent scalp abscess status post I&D and is followed by wound care weekly, who presented to the ED with abdominal pain and DKA. 1. Acute diabetic ketoacidosis, in the setting of uncontrolled diabetes mellitus type 1, present on admission.? DKA resolved. -Hemoglobin A1c remains >14% reflective of poor glycemic control likely due to medical non-compliance in regard to medications and diet. -Patient has had multiple recurrent DKA hospitalizations with the most recent from 01/15-01/16 . Patient?continues?to have frequent hospitalizations approximately every 2 weeks for DKA which is a poor prognostic indicator. -Initial blood glucose 619. Serum ketones 17.59.? VBG pH 6.86. -Chest x-ray did not demonstrate any acute cardiopulmonary process.? COVID-19 negative. -Initial WBC elevated at 28.2 and trended down now normal at 7.1. Procalcitonin elevated at 1.64. Empirically treated for scalp infection with ceftriaxone as below. -Initiated DKA protocol with insulin gtt, fluid replacement with normal saline then transitioned to 0.45% normal saline and then D5 0.45% normal saline until blood glucose was less than 250. Monitored blood glucose and electrolytes every 4 hours until anion gap closed and replaced electrolytes as necessary. Transitioned off insulin gtt and restarted home regimen. -Continued Tresiba 50 units daily, nutritional insulin with Humalog 13 units with meals and medium dose correctional scale insulin. -Reinforced need for routine blood glucose checks, corrected insulin management and appropriate diet.? Recommended food journal and glucose logs.? Continue outpatient follow-up with rn registry at [facility]. -Consulted dietitian to reinforce dietary management and we appreciate her time and recommendations. Continue outpatient DSME (diabetic self-management [facility]). -Consulted psychiatry, Dr. Alvarez, who did not appreciate any overlying psychiatric illness contributing to her poorly controlled diabetes.? Recommend continued medical social work support and?outpatient psychiatric referral if she wishes to avail herself.? 2. History of scalp abscess status post I&D and recent closure with possible infection, chronic, present on admission.? Stable. -Patient is followed by Plastic surgery Dr. Jenkins who recently closed scalp wound with adolph on 01/27/2020 and prescribed clindamycin 150 mg 3 times daily which the patient reports she is nearly finished with course and has 2 days remaining. Received ceftriaxone 2g IV x 2. Recommended finish course of clindamycin and follow-up with plastic surgery to have adolph removed on 02/09/2020 per plastic surgery as previously scheduled. Scalp wound appears to be healing well. -Initial WBC 28.2 and trended down now normal at 7.1. Procalcitonin elevated at 1.64. Continued to monitor WBC daily. -Continued Neosporin applied to scalp wound three times daily. Exam Vital Signs (past 8 hours): - 02/03/20 05:26 02/03/20 08:00 Temperature 96.9 F L 98.4 F Pulse Rate 102 H 102 H Respiratory Rate 18 14 Blood Pressure 128/87 118/84 Pulse Oximetry 99 99 Oxygen Delivery Method Room Air Oxygen Flow Rate 0 Narrative Exam Narrative: General: Young female lying in bed comfortably and in no cute distress, well-developed, well-nourished, appropriately interactive. HEENT: Normocephalic, atraumatic. External ears without defect. Pupils equal, round, and reactive to light. Anicteric sclerae, moist conjunctivae, and no lid lag. Oropharynx free of erythema and cobble stoning with moist mucosa. Large surgical scalp wound with adolph in place and appears to be healing. Neck: Supple with full range of motion. No lymphadenopathy or thyromegaly. Cardiovascular: Regular rate and mildly tachycardic without murmurs, rubs, or gallops appreciated. Pulmonary: Clear to auscultation bilaterally without crackles, wheezes, or rhonchi. Normal respiratory effort with no use of accessory muscles. Abdomen: Soft, bowel sounds present, nontender, nondistended. No hepatosplenomegaly or masses appreciated. Extremities: No clubbing, cyanosis, or edema. Skin: Normal temperature, turgor, and texture; no rash, ulcers, or subcutaneous nodules appreciated. Neurological: Cranial nerves grossly intact. Psychiatric: Normal mood and affect. Alert and oriented to person, place, and time. Objective Labs Result Diagrams: 02/03/20 05:15 02/03/20 05:15 Labs: Laboratory Results - last 24 hr 02/01/20 02/03/20 02/03/20 05:50 05:15 05:15 WBC 7.1 RBC 3.48 L Hgb 11.2 L Hct 32.3 L MCV 92.7 MCH 32.3 MCHC 34.8 RDW 13.6 Plt Count 274 Neut % (Auto) 62.2 Lymph % (Auto) 27.9 [place] % (Auto) 7.7 Eos % (Auto) 1.5 L Baso % (Auto) 0.7 Neut # (Auto) 4400 Lymph # (Auto) 2000 [place] # (Auto) 500 Eos # (Auto) 100 Baso # (Auto) 0 Sodium 138 Potassium 3.2 L Chloride 112 H Carbon Dioxide 24 BUN 11 Creatinine 0.44 L Estimated GFR > 60.0 BUN/Creatinine Ratio 25.0 H Glucose 84 Serum Osmolality 336 H Calcium 8.2 L Magnesium 1.9 Total Bilirubin 0.3 AST 48 H ALT 36 H Alkaline Phosphatase 272 H Total Protein 5.8 L Albumin 3.0 L Globulin 2.8 Albumin/Globulin Ratio 1.1 Procalcitonin 02/03/20 05:15 WBC RBC Hgb Hct MCV MCH MCHC RDW Plt Count Neut % (Auto) Lymph % (Auto) [place] % (Auto) Eos % (Auto) Baso % (Auto) Neut # (Auto) Lymph # (Auto) [place] # (Auto) Eos # (Auto) Baso # (Auto) Sodium Potassium Chloride Carbon Dioxide BUN Creatinine Estimated GFR BUN/Creatinine Ratio Glucose Serum Osmolality Calcium Magnesium Total Bilirubin AST ALT Alkaline Phosphatase Total Protein Albumin Globulin Albumin/Globulin Ratio Procalcitonin 1.64 H Discharge Plan Discharge Plan Patient Disposition: Home Provider Discharge Comment: You are being discharged home. You had DKA which has been treated with IV insulin and electrolyte replacement. It is unclear why you went into DKA but it may have been due to your scalp wound and possible infection or due to not taking enough insulin. Please keep track of your blood glucose and keep a log of your measurements to take to your appointments. You should take a fasting blood glucose (nothing to eat or drink) and 3 measurements 2 hours after meals (breakfast, lunch, and dinner) and one before bedtime. Continue your Tresiba 50 units daily (take this in the morning right when you wake up) and this may need to be divided into 2 separate doses for better blood glucose control which is at the discretion of your rn registry. Continue your NovoLog 3 times daily with meals and medium dose correctional. Your goal hemoglobin A1c should be 7.0%. Your current A1c is greater than 14%. An insulin pump and continuous blood glucose monitor would be ideal to have the best glycemic control. Please follow-up with your rn registry as soon as possible regarding your hospitalization and continue the process of acquiring insulin pump and continuous blood glucose monitor. Please follow-up with dietitian and diabetic Education. Please continue to follow-up with plastic surgeon, Dr. Jenkins, at your scheduled appointment to remove your adolph. Please finish your course of clindamycin Shantell S4 as previously prescribed. Discharge orders & Medications Prescriptions: Continued glucose 4 gram tablet,chewable 4 gram PO Q15M PRN (Reason: hypoglycemia) Qty: 30 RF: 0 Glucagon Emergency Kit (human) 1 mg recon soln 1 mg subcut DIRECTED RF: 0 insulin degludec 200 unit/mL (3 mL) Insulin Pen 50 unit SUBCUT DAILY RF: 0 insulin aspart U-100 [Novolog Flexpen U-100 Insulin] 100 unit/mL (3 mL) insulin pen 7 unit SUBCUT AC RF: 0 lisinopril 10 mg tablet 10 mg PO DAILY RF: 0 clindamycin HCl 150 mg capsule 150 mg PO TID RF: 0 hydroxyzine pamoate 50 mg capsule 50 mg PO QID PRN (Reason: pain) RF: 0 Diet/Activity/Treatments Diet: Diet as Tolerated, Carb-consistent/Diabetic, Low-fat, Low-sodium and Low-c holesterol Activity: Activity as tolerated Visit Report/Discharge Packet Instructions: How to Care for a Surgical Wound, DI for Wound Infection Visit Report Forms: Patient Portal/API, Stroke Signs & Symptoms
[2020-02-03] MEDS: INSULIN ASPART 100 UNIT/ML INSULN PEN 13 UNIT SUBCUT (12:42)
[2020-02-03] MEDS: INSULIN ASPART 100 UNIT/ML INSULN PEN SUBCUT (12:42)
--- NOTE | 2020-02-03 16:02 | CM.DPC ---
DCP/continued: Received notification from provider that patient medically stable for discharge today. 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 Spoke with RN whom indicates that patient has appointment with diabetic provider on March 07. In addition, [facility] dietary team plan to see patient and follow her as outpatient. P: Home today. Resources provided for MH and attempt made to contact [facility] for outpatient case management. RAYMOND Valladares
[2020-03-02 17:00] LABS: Base Excess ABG < -30.0 mmol/L (-2-2)
[2020-04-12 14:01] LABS: TCO2 ABG < 5 mmol/L (21-31)
[2020-04-12 17:04] LABS: Fractionated Inspired Oxygen 21
== END 2020-02-03 13:05 | disposition home or self-care (01) | DRG 638 ==
LOC: ED 07:58 → ICU 08:02
PROVIDERS: Emergency Medicine; Internal Medicine; Nurse Practitioner Adult Health; Admitting Provider Internal Medicine; Emergency Provider Emergency Medicine; Referring Provider Emergency Medicine; Visit Provider Internal Medicine
DX: E10.10 Type 1 diabetes mellitus with ketoacidosis without coma (principal); L02.811 Cutaneous abscess of head [any part, except face]; E86.0 Dehydration; Z11.59 Encounter for screening for other viral diseases
CPT/HCPCS: 36415; 36592; 36600; 71045; 80048; 80053; 81001; 81025; 82009; 82805; 82962; 83036; 83605; 83735; 83930; 84100; 84145; 84443; 84484; 85025; 87040; 87635; 87797; 90792; 93005; 96365; 96366; 96368; 96375; 99284; 99291; J0610; J0696; J1170; J1200; J1642; J2405; J3480; J7050

== ENCOUNTER 2020-02-16 12:51 | Inpatient (IN) | payer MEDICAID, OTHER, SELFPAY ==
[2020-02-01 08:49] VITALS: BMI 18.8
[2020-02-16] VITALS (17 sets, daily range): BP systolic 106–175; BP diastolic 64–85; PULSE 79–152; RESP 11–32; TEMP 36.2; O2SAT 98–100; BMI 18.1
--- NOTE | 2020-02-16 12:54 | DI.RAD.S_ITS ---
PROCEDURE: XR CHEST 1V INDICATIONS: chest pain, DKA TECHNIQUE: One view of the chest was acquired. COMPARISON: [facility], CR, XR CHEST 1V, 02/01/2020, 5:38. [facility], CR, XR CHEST 1V, 11/22/2019, 15:38. FINDINGS: Surgical changes and devices: None. Lungs and pleura: Lungs are clear. No pleural effusions or pneumothorax. Mediastinum: Mediastinal contours appear normal. Heart size is normal. Bones and chest wall: No suspicious bony lesions. Overlying soft tissues appear unremarkable. IMPRESSION: Normal for age, source of current chest pain symptoms is not seen. Dictated by: Nayan Koroma M.D. on 02/16/2020 at 13:58 Approved by: Nayan Koroma M.D. on 02/16/2020 at 13:59
[2020-02-16 13:15] LABS: Add Manual Diff / Slide Review NO; Basophils Absolute Auto 100 /uL (0-100); Basophils Percent Auto 1.1 % (0-2); Eosinophils Absolute Auto 0 /uL (0-450); Hematocrit 47.4 % (36-46); Hemoglobin 14.8 g/dL (12.0-16.0); Lymphocytes Absolute Auto 2100 /uL (1100-4500); Lymphocytes Percent Auto 15.4 % (25-40); Mean Corpuscular HGB Conc 31.2 % (30-36); Mean Corpuscular Hemoglobin 31.6 PG (26-34); Mean Corpuscular Volume 101.1 fL (80-100); Monocytes Absolute Auto 400 /uL (0-900); Monocytes Percent Auto 3.3 % (3-14); Neutrophils Absolute Auto 11000 /uL (1500-7000); Neutrophils Percent Auto 80.2 % (50-75); Platelet Count 442 X10^3/uL (150-400); Red Blood Cell Count 4.68 X10^6/uL (4.0-5.2); Red Cell Distribution Width 14.3 % (11.6-14.8); White Blood Cell Count 13.8 X10^3/uL (4.5-11.0)
--- NOTE | 2020-02-16 13:16 | ED_ITS ---
HPI - Abdominal Pain General Chief Complaint: Diabetic Problem Stated Complaint: CHEST PAIN DEHYDRATION DIBETIC Time Seen by Provider: 02/16/20 12:52 Source: patient and family Mode of arrival: Ambulatory Limitations: no limitations History of Present Illness HPI narrative: 22-year-old female nonsmoker with extensive history type 1 diabetes and multiple hospitalizations presents with mother and a chief complaint of full body pain, nausea of and generally feeling unwell since yesterday. She did have 1 episode of loose stool yesterday but otherwise denies other provoking symptoms such as runny nose, sore throat or cough. She has had trouble with recurrent infection on her scalp and most recently had been keren luated at [facility] a few weeks ago and recently had the adolph removed. It appears to be healing well. She denies any change in her diabetic regimen for any dietary indiscretions. MD complaint: abdominal pain Onset (ago): hour(s) Pain Consistency: constant Location: diffuse Severity: moderate Quality: cramping and aching Relieving factors: nothing Exacerbating factors: nothing Associated symptoms: nausea and diarrhea Related Data Home Medications Medication Instructions Recorded Confirmed Glucagon Emergency Kit (human) 1 mg SUBCUT DIRECTED 02/16/19 02/16/20 insulin degludec 50 unit SUBCUT DAILY 11/21/19 02/02/20 insulin aspart U-100 [Novolog 7 unit SUBCUT AC 01/03/20 02/03/20 Flexpen U-100 Insulin] hydroxyzine pamoate 50 mg PO QID PRN 02/03/20 02/16/20 lisinopril 10 mg PO DAILY 02/03/20 02/03/20 Previous Rx's Medication Instructions Recorded glucose 4 gram PO Q15M PRN #30 tab 12/12/18 Allergies Allergy/AdvReac Type Severity Reaction Status Date / Time arredondo [ARREDONDO] Allergy Intermediate Hives, Verified 02/16/20 14:27 pruritus iodine [IODINE] Allergy Intermediate rash, itchy Verified 02/16/20 14:27 morphine Allergy Intermediate Difficulty Verified 02/16/20 14:27 Breathing shellfish derived Allergy Intermediate rash Verified 02/16/20 14:27 [SHELLFISH DERIVED] adhesive [ADHESIVE] Allergy Unknown tape Verified 02/16/20 14:27 latex [LATEX] Allergy Unknown Hives Verified 02/16/20 14:27 Review of Systems Constitutional Constitutional: Denies chills, Denies fatigue, Denies fever(s), Denies frequent falls, Denies lethargy and Reports weakness Eyes Eyes: Denies change in vision, Denies eye discharge, Denies irritation and De nies loss of vision ENT Ears, Nose, Mouth, and Throat: Denies change in voice, Denies dizziness, Denies neck pain, Denies sore throat and Denies throat swelling Cardiovascular Cardiovascular: Reports chest pain, Denies irregular heart rhythm, Denies lightheadedness, Denies palpitations, Denies dyspnea, Denies dyspnea on exertion and Denies orthopnea Respiratory Respiratory: Denies cough, Denies dyspnea, Denies dyspnea on exertion and Denies wheezing Gastrointestinal Gastrointestinal: Reports abdominal pain, Denies change in bowel habits, Reports diarrhea, Reports nausea and Denies vomiting Musculoskeletal Musculoskeletal: Denies neck pain and Denies numbness Integumentary/Breasts Skin/Breast: Denies pruritus, Denies erythema, Denies rash and Denies wounds Neurologic Neurologic: Denies behavioral changes, Denies confusion, Denies dizziness, Denies frequent falls, Denies loss of vision, Denies numbness and Reports wea kness Psychiatric Psychiatric: Denies anxiety, Denies behavioral changes, Denies confusion, Denies depression, Denies homicidal ideation and Denies suicidal ideation Endocrine Endocrine: Denies fatigue, Denies flushing and Denies palpitations Hematologic/Lymphatic Hematologic/Lymphatic: Denies easy bruising Allergic/Immunologic Allergic/Immunologic: Denies urticaria, Denies throat swelling and Denies wheezing Patient History Medical History DKA (diabetic ketoacidoses) (Resolved) History of pyelonephritis (Resolved) Irregular menstrual cycle (Acute) Migraine headache (Chronic) Nephrolithiasis (Resolved) Type 1 diabetes mellitus (Chronic) Surgical History History of ureter stent (Resolved) Hx of local excision of skin lesion (Acute) Status post laser lithotripsy of ureteral calculus (Acute) [place] teeth extracted (Acute) Family History Father In good health Mother Cardiac disease Social History details: Engaged household members: significant other and family Smoking Status: Never smoker alcohol intake: former Smoking Status: Never smoker alcohol intake frequency: 0-2 drinks per day Substance Use Type: does not use Exam Narrative Exam Narrative: GENERAL: [30] year old patient appears stated age. Very thin, clearly in pain, and ill, tearful HEAD: Atraumatic. Normocephalic. EYES: Pupils equal round and reactive. Extraocular motions intact. No scleral icterus. No injection or drainage. ENT: Nose without bleeding, purulent drainage. Throat without erythema, tonsillar hypertrophy or exudate. Airway patent. NECK: Trachea midline. Non tender CARDIOVASCULAR: Tachycardic and regular rhythm without murmurs, gallops, or rubs. RESPIRATORY: Clear to auscultation. Breath sounds equal bilaterally. No wheezes, rales, or rhonchi. GASTROINTESTINAL: Abdomen soft, generalized tenderness to palpation, nondistended. EXTREMITIES: No edema or joint tenderness. BACK: Nontender without deformity or crepitance. No flank tenderness. NEURO: AOx3. SKIN: No rash or erythema of visible areas Initial Vital Signs Initial Vital Signs: Vital Signs Temperature 97.1 F L 02/16/20 12:51 Pulse Rate 79 02/16/20 12:51 Respiratory Rate 32 H 02/16/20 12:51 Blood Pressure 175/85 H 02/16/20 12:51 Pulse Oximetry 98 02/16/20 12:51 Course Orders Ordered: ED Orders 02/16/20 12:54 XR chest 1V Stat EKG-12 Lead Stat 02/16/20 13:05 Complete Blood Count AUTO DIFF Stat Comprehensive Metabolic Panel Stat Ketones (Beta-Hydroxybutyrate) Stat Procalcitonin Stat 02/16/20 13:06 Venous Blood Gas Stat 02/16/20 13:35 Blood Culture Stat Lactate (Lactic Acid) Stat 02/16/20 13:45 COVID19 -ED/INPAT/OR/L&D Stat Acetaminophen (Tylenol) 650 mg PO Q4HR PRN PRN Reason: Fever/Mild Pain (1-3) Dextrose (D50w) 25 gm IV PRN PRN PRN Reason: Hypoglycemia INSULIN DRIP PREMIX (Myxredlin Drip Premix) 100 unit in 100 mls @ 6 mls/hr IV TITRATE BLAISE; Protocol Last Admin: 02/16/20 14:20 Dose: 6 mls/hr, 6 mls/hr Documented by: SILVIA Cosigned by: CANDE Sodium Chloride (Normal Saline 0.9%) 1,000 mls @ 100 mls/hr IV BOLUS ONE Stop: 02/17/20 00:49 Last Admin: 02/16/20 15:00 Dose: 100 mls/hr Documented by: SILVIA Sodium Chloride (Normal Saline 0.45%) 1,000 mls @ 150 mls/hr IV CONT BLAISE Dextrose/Sodium Chloride (Dextrose 5%-0.45% Ns) 1,000 mls @ 150 mls/hr IV CONT BLAISE Pt Own Meds Stored (In Pharmacy) 0 each SUBCUT PRN PRN PRN Reason: HOME MED STORAGE Ondansetron HCl (Zofran) 4 mg IV Q4HR PRN PRN Reason: Nausea And Vomiting Discontinued Medications Hydromorphone HCl (Dilaudid) 0.5 mg IV NOW ONE Stop: 02/16/20 13:03 Last Admin: 02/16/20 13:51 Dose: 0.5 mg Documented by: SILVIA Hydromorphone HCl (Dilaudid) 0.5 mg IV NOW ONE Stop: 02/16/20 14:35 Last Admin: 02/16/20 15:00 Dose: 0.5 mg Documented by: SILVIA Sodium Chloride (Normal Saline 0.9%) 1,000 mls @ 1,000 mls/hr IV BOLUS ONE Stop: 02/16/20 13:52 Last Infusion: 02/16/20 15:00 Dose: 0 mls/hr Documented by: Admin: 02/16/20 13:50 Dose: 1,000 mls/hr Documented by: SILVIA Sodium Chloride (Normal Saline 0.9%) 1,000 mls @ 1,000 mls/hr IV BOLUS ONE Stop: 02/16/20 15:49 Last Infusion: 02/16/20 16:00 Dose: 0 mls/hr Documented by: Admin: 02/16/20 15:00 Dose: 1,000 mls/hr Documented by: SILVIA Ondansetron HCl (Zofran) 4 mg IV NOW ONE Stop: 02/16/20 13:03 Last Admin: 02/16/20 13:48 Dose: 4 mg Documented by: SILVIA Vital Signs Vital signs: Vital Signs - 8 hr 02/16/20 12:51 02/16/20 13:26 02/16/20 13:30 Temperature 97.1 F L Pulse Rate 79 152 H 148 H Respiratory Rate 32 H Blood Pressure 175/85 H Pulse Oximetry 98 99 99 02/16/20 13:45 02/16/20 14:00 02/16/20 14:15 Temperature Pulse Rate 139 H 132 H 129 H Respiratory Rate Blood Pressure Pulse Oximetry 99 100 100 02/16/20 14:30 02/16/20 14:45 02/16/20 15:00 Temperature Pulse Rate 128 H 128 H 130 H Respiratory Rate 16 15 14 Blood Pressure Pulse Oximetry 100 100 100 02/16/20 15:14 02/16/20 15:15 02/16/20 15:30 Temperature Pulse Rate 128 H 127 H 126 H Respiratory Rate 16 14 20 Blood Pressure 106/65 108/64 108/68 Pulse Oximetry 100 100 100 02/16/20 15:45 02/16/20 16:00 Temperature Pulse Rate 124 H 123 H Respiratory Rate 19 14 Blood Pressure 107/64 Pulse Oximetry 100 100 MDM - Abdominal Pain Lab Data Result diagrams: 02/16/20 13:05 02/16/20 16:20 Labs: Lab Results 02/16/20 02/16/20 02/16/20 Range/Units 13:05 13:05 13:05 WBC 13.8 H (4.5-11.0) X10^3/uL RBC 4.68 (4.0-5.2) X10^6/uL Hgb 14.8 (12.0-16.0) g/dL Hct 47.4 H (36-46) % MCV 101.1 H (80-100) fL MCH 31.6 (26-34) PG MCHC 31.2 (30-36) % RDW 14.3 (11.6-14.8) % Plt Count 442 H (150-400) X10^3/uL Neut % (Auto) 80.2 H (50-75) % Lymph % (Auto) 15.4 L (25-40) % [place] % (Auto) 3.3 (3-14) % Eos % (Auto) 0.0 L (2-4) % Baso % (Auto) 1.1 (0-2) % Neut # (Auto) 39023 H (2325-5105) /uL Lymph # (Auto) 2100 (8979-9155) /uL [place] # (Auto) 400 (0-900) /uL Eos # (Auto) 0 (0-450) /uL Baso # (Auto) 100 (0-100) /uL VBG pH (7.33-7.43) VBG pCO2 (45-50) mmHg VBG pO2 (35-45) mmHg VBG HCO3 (23-28) mmol/L VBG Total CO2 (24-29) mmol/L VBG O2 Saturation (70-75) % VBG Base Excess (0-4) mmol/L Sodium 140 (137-145) mmol/L Potassium 5.2 H (3.4-5.1) mmol/L Chloride 102 (98-107) mmol/L Carbon Dioxide < 5 L* (22-32) mmol/L BUN 17 (7-17) mg/dL Creatinine 0.97 (0.52-1.04) mg/dL Estimated GFR > 60.0 (>60) mL/min BUN/Creatinine Ratio 17.5 (6-22) Glucose 599 H* (70-100) mg/dL Lactate (0.7-2.1) mmol/L Calcium 9.9 (8.4-10.2) mg/dL Total Bilirubin 0.4 (0.2-1.3) mg/dL AST 15 (14-36) IU/L ALT 16 (<35) IU/L Alkaline Phosphatase 211 H (38-126) U/L Total Protein 8.7 H (6.3-8.2) g/dL Albumin 4.8 (3.5-5.0) g/dL Globulin 3.9 (1.7-4.1) g/dL Albumin/Globulin Ratio 1.2 (1.0-2.8) Procalcitonin < 0.05 (<0.5) ng/mL Serum , Qual (Negative) Ketones 18.29 H (<0.27) mmol/L COVID-19 PCR (Negative) 02/16/20 02/16/20 02/16/20 Range/Units 13:05 13:06 13:35 WBC (4.5-11.0) X10^3/uL RBC (4.0-5.2) X10^6/uL Hgb (12.0-16.0) g/dL Hct (36-46) % MCV (80-100) fL MCH (26-34) PG MCHC (30-36) % RDW (11.6-14.8) % Plt Count (150-400) X10^3/uL Neut % (Auto) (50-75) % Lymph % (Auto) (25-40) % [place] % (Auto) (3-14) % Eos % (Auto) (2-4) % Baso % (Auto) (0-2) % Neut # (Auto) (0754-2506) /uL Lymph # (Auto) (5594-2835) /uL [place] # (Auto) (0-900) /uL Eos # (Auto) (0-450) /uL Baso # (Auto) (0-100) /uL VBG pH 7.05 L* (7.33-7.43) VBG pCO2 12.7 L (45-50) mmHg VBG pO2 60 H (35-45) mmHg VBG HCO3 4 L (23-28) mmol/L VBG Total CO2 < 5 L (24-29) mmol/L VBG O2 Saturation 79 H (70-75) % VBG Base Excess -27.0 L (0-4) mmol/L Sodium (137-145) mmol/L Potassium (3.4-5.1) mmol/L Chloride (98-107) mmol/L Carbon Dioxide (22-32) mmol/L BUN (7-17) mg/dL Creatinine (0.52-1.04) mg/dL Estimated GFR (>60) mL/min BUN/Creatinine Ratio (6-22) Glucose (70-100) mg/dL Lactate 2.1 (0.7-2.1) mmol/L Calcium (8.4-10.2) mg/dL Total Bilirubin (0.2-1.3) mg/dL AST (14-36) IU/L ALT (<35) IU/L Alkaline Phosphatase (38-126) U/L Total Protein (6.3-8.2) g/dL Albumin (3.5-5.0) g/dL Globulin (1.7-4.1) g/dL Albumin/Globulin Ratio (1.0-2.8) Procalcitonin (<0.5) ng/mL Serum , Qual Negative (Negative) Ketones (<0.27) mmol/L COVID-19 PCR (Negative) 02/16/20 Range/Units 13:45 WBC (4.5-11.0) X10^3/uL RBC (4.0-5.2) X10^6/uL Hgb (12.0-16.0) g/dL Hct (36-46) % MCV (80-100) fL MCH (26-34) PG MCHC (30-36) % RDW (11.6-14.8) % Plt Count (150-400) X10^3/uL Neut % (Auto) (50-75) % Lymph % (Auto) (25-40) % [place] % (Auto) (3-14) % Eos % (Auto) (2-4) % Baso % (Auto) (0-2) % Neut # (Auto) (8640-2897) /uL Lymph # (Auto) (0639-6770) /uL [place] # (Auto) (0-900) /uL Eos # (Auto) (0-450) /uL Baso # (Auto) (0-100) /uL VBG pH (7.33-7.43) VBG pCO2 (45-50) mmHg VBG pO2 (35-45) mmHg VBG HCO3 (23-28) mmol/L VBG Total CO2 (24-29) mmol/L VBG O2 Saturation (70-75) % VBG Base Excess (0-4) mmol/L Sodium (137-145) mmol/L Potassium (3.4-5.1) mmol/L Chloride (98-107) mmol/L Carbon Dioxide (22-32) mmol/L BUN (7-17) mg/dL Creatinine (0.52-1.04) mg/dL Estimated GFR (>60) mL/min BUN/Creatinine Ratio (6-22) Glucose (70-100) mg/dL Lactate (0.7-2.1) mmol/L Calcium (8.4-10.2) mg/dL Total Bilirubin (0.2-1.3) mg/dL AST (14-36) IU/L ALT (<35) IU/L Alkaline Phosphatase (38-126) U/L Total Protein (6.3-8.2) g/dL Albumin (3.5-5.0) g/dL Globulin (1.7-4.1) g/dL Albumin/Globulin Ratio (1.0-2.8) Procalcitonin (<0.5) ng/mL Serum , Qual (Negative) Ketones (<0.27) mmol/L COVID-19 PCR Negative (Negative) Point of care testing: Point of Care Testing Glucose POC 397 Discharge Plan Departure Patient Disposition: Admitted As Inpatient Clinical Impression: DKA (diabetic ketoacidoses) Qualifiers: Diabetes mellitus type: type 1 Diabetes mellitus complication detail: without coma Qualified Code(s): E10.10 - Type 1 diabetes mellitus with ketoacidosis without coma Discharge Date/Time: 02/16/20 16:30 Admit Date/Time: 02/16/20 16:04 Admit Provider: Susy Vargas
[2020-02-16 13:32] LABS: HCO3 VBG 4 mmol/L (23-28); PCO2 VBG 12.7 mmHg (45-50); PO2 VBG 60 mmHg (35-45); pH VBG 7.05 (7.33-7.43)
[2020-02-16 13:33] LABS: Oxygen Saturation VBG 79 % (70-75); Total CO2 VBG < 5 mmol/L (24-29)
[2020-02-16 13:43] LABS: Procalcitonin < 0.05 ng/mL (<0.5)
[2020-02-16] MEDS: ONDANSETRON 4 MG/2 ML INJ IV (13:48)
[2020-02-16] MEDS: SODIUM CHLORIDE 0.9% 1,000 ML 1000 ML IV ×2 (13:50→15:00)
[2020-02-16] MEDS: HYDROMORPHONE 0.5 MG INJ IV ×2 (13:51→15:00)
[2020-02-16 13:59] LABS: Lactate (Lactic Acid) 2.1 mmol/L (0.7-2.1)
[2020-02-16 14:00] LABS: Alanine Aminotransferase 16 IU/L (<35); Albumin 4.8 g/dL (3.5-5.0); Albumin Globulin Ratio 1.2 (1.0-2.8); Alkaline Phosphatase 211 U/L (38-126); Aspartate Aminotransferase 15 IU/L (14-36); BUN Creatinine Ratio 17.5 (6-22); Bilirubin Total 0.4 mg/dL (0.2-1.3); Blood Urea Nitrogen 17 mg/dL (7-17); Calcium 9.9 mg/dL (8.4-10.2); Chloride 102 mmol/L (98-107); Estimated Glomerular Filt Rate > 60.0 mL/min (>60); Globulin 3.9 g/dL (1.7-4.1); HEMOLYSIS < 15 (0-50); Potassium 5.2 mmol/L (3.4-5.1); Sodium 140 mmol/L (137-145); Total Protein 8.7 g/dL (6.3-8.2)
[2020-02-16 14:03] LABS: Carbon Dioxide < 5 mmol/L (22-32)
[2020-02-16 14:04] LABS: Glucose 599 mg/dL (70-100)
[2020-02-16 14:20] LABS: COVID19 -Nasal RAPID Negative (Negative)
[2020-02-16] MEDS: INSULIN DRIP PREMIX 100 UNIT/100 ML PLAST..BAG 6 UNIT IV (14:20)
[2020-02-16 14:25] LABS: Ketones (Beta-Hydroxybutyrate) 18.29 mmol/L (<0.27)
[2020-02-16] MEDS: SODIUM CHLORIDE 0.9% 1,000 ML 100 ML IV (15:00)
[2020-02-16 15:45] LABS: Reflexed Lactate in 2 Hours Y
--- NOTE | 2020-02-16 15:58 | PC.NURSE ---
[address] Yap, maintain insulin at 6units/hr.
[2020-02-16 16:42] LABS: Lactate 2HR (Lactic Acid Rflx) 2.1 mmol/L (0.7-2.1)
[2020-02-16 16:55] LABS: Blood Urea Nitrogen 16 mg/dL (7-17); Chloride 112 mmol/L (98-107); Estimated Glomerular Filt Rate > 60.0 mL/min (>60); Glucose 345 mg/dL (70-100); HEMOLYSIS 35 (0-50); Potassium 4.5 mmol/L (3.4-5.1); Sodium 144 mmol/L (137-145)
[2020-02-16 16:59] LABS: Pregnancy Test Serum,Qual Negative (Negative)
[2020-02-16 16:59] LABS: Carbon Dioxide < 5 mmol/L (22-32)
[2020-02-16] MEDS: SODIUM CHLORIDE 0.45% 1,000 ML 150 ML IV (17:58)
[2020-02-16] MEDS: DEXTROSE 5%-0.45% NS 1,000 ML 150 ML IV (18:05)
[2020-02-16 18:24] LABS: UR Morphine/Opiate cutoff 300 Negative (Negative); Ur Creatinine Normal (Normal); Ur Specific Gravity Normal (Normal); Urine Amphetamines Negative (Negative); Urine Cocaine Negative (Negative); Urine MDMA Negative (Negative); Urine Methamphetamines Negative (Negative); Urine Phencyclidine Negative (Negative); Urine Tetrahydrocannabinol Negative (Negative); Urine pH Normal (Normal)
[2020-02-16 18:25] LABS: Urine Barbiturates Negative (Negative); Urine Benzodiazepines Negative (Negative); Urine Methadone Negative (Negative); Urine Oxycodone Positive (Negative); Urine Tricyclic Antidepressant Negative (Negative)
[2020-02-16 18:31] LABS: Bacteria Urine None Seen
[2020-02-16 18:37] LABS: Appearance Urine UA CLEAR; Bilirubin Urine UA NEGATIVE (NEGATIVE); Color Urine UA YELLOW; Glucose Urine UA 1+ g/dL (Negative); Ketones Urine UA 3+ (NEGATIVE); Leukocyte Esterase Urine UA NEGATIVE (NEGATIVE); Nitrite Urine UA NEGATIVE (Negative); Occult Blood Urine UA TRACE-LYSED (Negative); Protein Urine UA 1+ (Negative); Urobilinogen Urine UA 0.2 E.U./dL (0.2)
[2020-02-16 18:43] LABS: Culture Indicated Urine Cult Not Indicated; RBC Urine 0-1/HPF (0-5/HPF); WBC Urine 0-1/HPF (0-5/HPF)
--- NOTE | 2020-02-16 20:29 | P.HP_ITS ---
History of Present Illness History of Present Illness Date Patient Seen: 02/16/20 Time Patient Seen: 20:06 Chief complaint: CHEST PAIN DEHYDRATION DIBETIC Narrative: Ms. Sarabjit Jimenes is a 29-year-old female patient with a history significant for poorly controlled type 1 diabetes, frequent admissions for DKA, migraines and irregular menstruation (last menstrual period over 1 year ago) who presents to the ER with complaints diarrhea for 24 hours. Patient states that she had an onset of watery diarrhea yesterday starting in had elevated blood sugars that time however she states she was able manage her sugars and get them stable in the 300s. She states today she fell worse feeling unwell body and describes poor appetite but denies nausea vomiting while continued to have diarrhea. She reports she had been clindamycin for 2 weeks following repair of her scalp which she states is doing excellent. The patient reports marked edema of her extremities with associated non radiating chest tightness and shortness of breath following discharge from last admission 02/03/2020 which is verified by the patient's mother. The patient remedy this by drinking a tea that was recommended to help her diurese resolving in approximately 3 days. The patient states she has not previously experienced the symptoms. She reports no recent fevers or chills headaches or dizziness, nasal congestion or sore throat. She reported chest pain upon arrival to the ED and presently denies chest pain or palpitations and has no shortness of breath cough or wheezing. She denies abdominal pain and had nausea prior to arrival but not at present. She has had diarrhea described as watery for 24 hours but no stool since presenting for care. Patient denies further extremity pain, numbness or tingling. On admission the patient complains of pain 10/10 per triage note is not available to identify location. Patient denies complaints of pain at time of encounter. Upon arrival to the ER the patient is afebrile with temperature 97.1?, initial heart rate reading is charted is a 79 and subsequently 159. Blood pressure is 175/85 with respiratory rate of 32 saturating 98% on room air. A chest x-ray is found to be normal for age with no acute cardiopulmonary findings. On la boratory analysis patient has white count of 13.8 with hemoglobin of 14.8 and hematocrit of 47.4 with platelets 442. On chemistry she has a sodium of 144 and a potassium 4.5, her chloride is elevated at 112 with bicarb of less than 5. She has a BUN of 16 and creatinine 0.8. Her initial nonfasting glucose is 599. Total bilirubin is 0.4 with AST of 15, ALT 16 alkaline phosphatase of 211. She has an albumin of 4.8. On VBG she has a pH of 7.05, bicarb minute of 4 at a base excess of -27. She has lactic acid of 2.11 a procalcitonin that is negative at 0.05. Her urinalysis is positive for protein, glucose and ketones and negative for nitrates leukocyte esterase wbc's or bacteria. A urine tox screen is positive for oxycodone. screening is negative. The patient is admitted to the hospitalist service for recurrent DKA. Patient History Medical History DKA (diabetic ketoacidoses) (Resolved) History of pyelonephritis (Resolved) Irregular menstrual cycle (Acute) Migraine headache (Chronic) Nephrolithiasis (Resolved) Type 1 diabetes mellitus (Chronic) Surgical History History of ureter stent (Resolved) Hx of local excision of skin lesion (Acute) Status post laser lithotripsy of ureteral calculus (Acute) [place] teeth extracted (Acute) Family & Social History Family History Father In good health Mother Cardiac disease Social History: household members significant other,family Safety & Behavioral: Feels Safe in Current Yes Environment Been Physically Hurt or No Threatened By a Person Suicidal Ideation Description None Suicide Plan Description No Plan Tobacco & Substance use: Smoking Status Never smoker alcohol intake former alcohol intake frequency holiday/special occasion Substance Use Type does not use Meds Home Medications and Allergies Home Medications Medication Instructions Recorded Confirmed Type glucose 4 gram PO Q15M PRN #30 tab 12/12/18 02/16/20 Rx Glucagon Emergency Kit (human) 1 mg SUBCUT DIRECTED 02/16/19 02/16/20 History insulin degludec 50 unit SUBCUT DAILY 11/21/19 02/16/20 History insulin aspart U-100 [Novolog 7 unit SUBCUT AC 01/03/20 02/16/20 History Flexpen U-100 Insulin] hydroxyzine pamoate 50 mg PO QID PRN 10/14/20 10/27/20 History lisinopril 10 mg PO DAILY 02/03/20 02/16/20 History Allergies Allergy/AdvReac Type Severity Reaction Status Date / Time abdalla [ABDALLA] Allergy Intermediate Hives, Verified 02/16/20 14:27 pruritus iodine [IODINE] Allergy Intermediate rash, itchy Verified 02/16/20 14:27 morphine Allergy Intermediate Difficulty Verified 02/16/20 14:27 Breathing shellfish derived Allergy Intermediate rash Verified 02/16/20 14:27 [SHELLFISH DERIVED] adhesive [ADHESIVE] Allergy Unknown tape Verified 02/16/20 14:27 latex [LATEX] Allergy Unknown Hives Verified 02/16/20 14:27 Review of Systems Review of Systems ROS: Yes All systems reviewed with the patient and are negative except as otherwise documented Exam Vital Signs (past 8 hours): - 02/16/20 12:51 02/16/20 13:26 02/16/20 13:30 Temperature 97.1 F L Pulse Rate 79 152 H 148 H Respiratory Rate 32 H Blood Pressure 175/85 H Pulse Oximetry 98 99 99 02/16/20 13:45 02/16/20 14:00 02/16/20 14:15 Temperature Pulse Rate 139 H 132 H 129 H Respiratory Rate Blood Pressure Pulse Oximetry 99 100 100 02/16/20 14:30 02/16/20 14:45 02/16/20 15:00 Temperature Pulse Rate 128 H 128 H 130 H Respiratory Rate 16 15 14 Blood Pressure Pulse Oximetry 100 100 100 02/16/20 15:14 02/16/20 15:15 02/16/20 15:30 Temperature Pulse Rate 128 H 127 H 126 H Respiratory Rate 16 14 20 Blood Pressure 106/65 108/64 108/68 Pulse Oximetry 100 100 100 02/16/20 15:45 02/16/20 16:00 02/16/20 16:15 Temperature Pulse Rate 124 H 123 H 130 H Respiratory Rate 19 14 14 Blood Pressure 107/64 Pulse Oximetry 100 100 100 02/16/20 16:30 02/16/20 16:45 Temperature Pulse Rate 126 H 119 H Respiratory Rate 11 L 13 Blood Pressure Pulse Oximetry 100 100 Oxygen Delivery Method Room Air Narrative Exam Narrative: GENERAL APPEARANCE: well developed, underweight female with poor muscle mass who is mildly ill-appearing. HEENT: Normocephalic, well-healed surgical scar top of head without tenderness, swelling or erythema, PERRLA, conjunctiva clear, EOMs intact without nystagmus, no rhinorrhea, mucous membranes are moist and pink without lesions or exudate. NECK/THYROID: neck supple, nontender, no JVD, no thyromegaly, trachea midline. LYMPH NODES: no cervical or supraclavicular lymphadenopathy. SKIN: Pale skin with pink mucous membranes, warm and dry, no visible lesions, rashes, ulcerations or petechiae. HEART: Tachycardic heart rate, regular rhythm, S1-S2, no murmur, no rubs or gallops, brisk capillary refill, no edema LUNGS: clear to auscultation bilaterally, no coarseness crackles or wheezing, no cough present CHEST: Symmetrical movement, no accessory muscle use, good tidal volume. ABDOMEN: Soft, scaphoid, no distention, no abdominal tenderness, no org anomegaly, no flank or suprapubic tenderness, active bowel tones. EXTREMITIES: moves all extremities, strength is 5/5 and symmetrical, no deformities or joint effusions. NEUROLOGIC: AAO x4, no focal neurologic deficits, cranial nerves II-XII grossly intact, sensation remains intact to light touch. PSYCH: cooperative, appropriate with stable behavior, denies depression or thoughts of self-harm Objective Labs Result Diagrams: 02/16/20 13:05 02/16/20 16:20 Labs: Laboratory Results - last 24 hr 02/16/20 02/16/20 02/16/20 13:05 13:05 13:05 WBC 13.8 H RBC 4.68 Hgb 14.8 Hct 47.4 H MCV 101.1 H MCH 31.6 MCHC 31.2 RDW 14.3 Plt Count 442 H Neut % (Auto) 80.2 H Lymph % (Auto) 15.4 L [place] % (Auto) 3.3 Eos % (Auto) 0.0 L Baso % (Auto) 1.1 Neut # (Auto) 01510 H Lymph # (Auto) 2100 [place] # (Auto) 400 Eos # (Auto) 0 Baso # (Auto) 100 VBG pH VBG pCO2 VBG pO2 VBG HCO3 VBG Total CO2 VBG O2 Saturation VBG Base Excess Sodium 140 Potassium 5.2 H Chloride 102 Carbon Dioxide < 5 L* BUN 17 Creatinine 0.97 Estimated GFR > 60.0 BUN/Creatinine Ratio 17.5 Glucose 599 H* Lactate Calcium 9.9 Total Bilirubin 0.4 AST 15 ALT 16 Alkaline Phosphatase 211 H Total Protein 8.7 H Albumin 4.8 Globulin 3.9 Albumin/Globulin Ratio 1.2 Procalcitonin < 0.05 Serum , Qual Urine Color Urine Appearance Urine pH Ur Specific [place] Urine Protein Urine Glucose (UA) Urine Ketones Urine Occult Blood Urine Nitrate Urine Bilirubin Urine Urobilinogen Ur Leukocyte Esterase Urine RBC Urine WBC Urine Bacteria Ur Culture Indicated? U Opiates 300ng/mL cut Ur Oxycodone Screen Urine Methadone Screen Ur Barbiturates Screen U Tricyclic Antidepress Ur Phencyclidine Scrn Ur Amphetamines Screen U Methamphetamines Scrn Ur MDMA Scrn (Ecstasy) U Benzodiazepines Scrn Urine Cocaine Screen U Marijuana (THC) Screen Ketones 18.29 H COVID-19 PCR 02/16/20 02/16/20 02/16/20 13:05 13:06 13:35 WBC RBC Hgb Hct MCV MCH MCHC RDW Plt Count Neut % (Auto) Lymph % (Auto) [place] % (Auto) Eos % (Auto) Baso % (Auto) Neut # (Auto) Lymph # (Auto) [place] # (Auto) Eos # (Auto) Baso # (Auto) VBG pH 7.05 L* VBG pCO2 12.7 L VBG pO2 60 H VBG HCO3 4 L VBG Total CO2 < 5 L VBG O2 Saturation 79 H VBG Base Excess -27.0 L Sodium Potassium Chloride Carbon Dioxide BUN Creatinine Estimated GFR BUN/Creatinine Ratio Glucose Lactate 2.1 Calcium Total Bilirubin AST ALT Alkaline Phosphatase Total Protein Albumin Globulin Albumin/Globulin Ratio Procalcitonin Serum , Qual Negative Urine Color Urine Appearance Urine pH Ur Specific [place] Urine Protein Urine Glucose (UA) Urine Ketones Urine Occult Blood Urine Nitrate Urine Bilirubin Urine Urobilinogen Ur Leukocyte Esterase Urine RBC Urine WBC Urine Bacteria Ur Culture Indicated? U Opiates 300ng/mL cut Ur Oxycodone Screen Urine Methadone Screen Ur Barbiturates Screen U Tricyclic Antidepress Ur Phencyclidine Scrn Ur Amphetamines Screen U Methamphetamines Scrn Ur MDMA Scrn (Ecstasy) U Benzodiazepines Scrn Urine Cocaine Screen U Marijuana (THC) Screen Ketones COVID-19 PCR 02/16/20 02/16/20 02/16/20 13:45 16:10 16:20 WBC RBC Hgb Hct MCV MCH MCHC RDW Plt Count Neut % (Auto) Lymph % (Auto) [place] % (Auto) Eos % (Auto) Baso % (Auto) Neut # (Auto) Lymph # (Auto) [place] # (Auto) Eos # (Auto) Baso # (Auto) VBG pH VBG pCO2 VBG pO2 VBG HCO3 VBG Total CO2 VBG O2 Saturation VBG Base Excess Sodium 144 Potassium 4.5 Chloride 112 H Carbon Dioxide < 5 L* BUN 16 Creatinine 0.80 Estimated GFR > 60.0 BUN/Creatinine Ratio 20.0 Glucose 345 H D Lactate 2.1 Calcium 9.0 Total Bilirubin AST ALT Alkaline Phosphatase Total Protein Albumin Globulin Albumin/Globulin Ratio Procalcitonin Serum , Qual Urine Color Urine Appearance Urine pH Ur Specific [place] Urine Protein Urine Glucose (UA) Urine Ketones Urine Occult Blood Urine Nitrate Urine Bilirubin Urine Urobilinogen Ur Leukocyte Esterase Urine RBC Urine WBC Urine Bacteria Ur Culture Indicated? U Opiates 300ng/mL cut Ur Oxycodone Screen Urine Methadone Screen Ur Barbiturates Screen U Tricyclic Antidepress Ur Phencyclidine Scrn Ur Amphetamines Screen U Methamphetamines Scrn Ur MDMA Scrn (Ecstasy) U Benzodiazepines Scrn Urine Cocaine Screen U Marijuana (THC) Screen Ketones COVID-19 PCR Negative 02/16/20 02/16/20 17:10 17:10 WBC RBC Hgb Hct MCV MCH MCHC RDW Plt Count Neut % (Auto) Lymph % (Auto) [place] % (Auto) Eos % (Auto) Baso % (Auto) Neut # (Auto) Lymph # (Auto) [place] # (Auto) Eos # (Auto) Baso # (Auto) VBG pH VBG pCO2 VBG pO2 VBG HCO3 VBG Total CO2 VBG O2 Saturation VBG Base Excess Sodium Potassium Chloride Carbon Dioxide BUN Creatinine Estimated GFR BUN/Creatinine Ratio Glucose Lactate Calcium Total Bilirubin AST ALT Alkaline Phosphatase Total Protein Albumin Globulin Albumin/Globulin Ratio Procalcitonin Serum , Qual Urine Color Yellow Urine Appearance Clear Urine pH 5.0 Ur Specific [place] 1.020 Urine Protein 1+ H Urine Glucose (UA) 1+ H Urine Ketones 3+ H Urine Occult Blood Trace-lysed Urine Nitrate Negative Urine Bilirubin Negative Urine Urobilinogen 0.2 Ur Leukocyte Esterase Negative Urine RBC 0-1/hpf Urine WBC 0-1/hpf Urine Bacteria None seen Ur Culture Indicated? Cult not indicated U Opiates 300ng/mL cut Negative Ur Oxycodone Screen Positive H Urine Methadone Screen Negative Ur Barbiturates Screen Negative U Tricyclic Antidepress Negative Ur Phencyclidine Scrn Negative Ur Amphetamines Screen Negative U Methamphetamines Scrn Negative Ur MDMA Scrn (Ecstasy) Negative U Benzodiazepines Scrn Negative Urine Cocaine Screen Negative U Marijuana (THC) Screen Negative Ketones COVID-19 PCR Assessment & Plan Assessment & Plan narrative: This is a 29-year-old female patient with frequent recurrent episodes of diabetic ketoacidosis who presents today in DKA with complaints of diarrhea as triggering event. Patient also describes experiencing severe generalized edema following discharge on 02/03/2020. 1. Acute diabetic ketoacidosis, in uncontrolled diabetes mellitus type 1, present on admission, active. -Hemoglobin A1c >14% since June of 2018 indicative of poor glycemic control likely multifactorial. -patient takes Tresiba 50 mg at 11 a.m., and 7 units of prandial insulin. She reports stabilizing blood sugars in the 300s yesterday with worsening blood sugars today. -Initial blood glucose 599, VBG pH 7.05, HC03 4, base excess -27. Anion gap is 28. COVID-19 negative. WBC are elevated at 13.8 without shift, procalcitonin negative, elevation believed at this point reactive. -patient given fluid bolus and was started on insulin drip in the emergency department. Will check electrolytes including BMP, magnesium and phos every 4 hours. -when blood sugars less than 200 will start D5-0.45% normal saline at 150 cc/hour and continue until anion gap closes and acidosis improves. -ordered Reglan 10 mg IV every 8 hours as needed for nausea. -requested dietitian consult and referral to social work evaluation for frequent readmissions (3 inpatient admissions in last month) patient still needing community resources, she is followed at [facility] clinic for endocrinology. She has no PCP. 2. Diarrhea, present on admission, active -patient recently been on clindamycin for 2 week per patient report which may be triggering event for diarrhea. Patient denies abdominal pain or nausea time of exam. -will obtain GI panel. 3. Chest pain, present on admission, active -patient complained of chest pain to ER provider though denies chest discomfort at this time. No complaints of palpitations or shortness of breath. -patient additionally described full body edema with chest tightness and shortness of breath, no complaints of rashes or pruritus.. -12 lead EKG finds sinus tachycardia at rate 142, biphasic T-wave in V1, small cues not meeting infarct criteria in lead 2, lead 3 and AVF. -order troponin and proBNP 4. Neurogenic bladder secondary to autonomic nerve dysfunction secondary to diabetes, chronic, present on admission, stable -patient reports no burning, strong urine smell or hematuria in the setting of neurogenic bladder. -urinalysis is positive for protein, glucose and ketones but negative for nitrites, leukocyte esterase, wbc's or bacteria. -ordered bladder scan as needed. 5. Scalp wound status post surgical debridement, Stable. -surgical wound is clean without redness swelling or tenderness, completed 2 week course of antibiotics likely triggering event for diarrhea precipitating DKA. -urine tox screen positive for oxycodone prescribed by surgeon following closure of scalp wound on 01/27/2020. VTE prophylaxis, bilateral SCDs, enoxaparin IV fluid: 1/2 normal saline at 150 cc/hour, when blood sugar less than 200 will change D5 1/2 normal saline at 150 cc per Diet: NPO Code status: FULL CODE, her surrogate decision maker is her nina Gonzales. The patient is admitted as an inpatient to the ICU for with diabetic ketoacidosis on insulin infusion requiring close monitoring and frequent interventions prevent complications or adverse events.. Critical care time: 45 minutes with over 50% of the time spent in direct [id number] with the patient. Scores GCS Alex coma scale eye opening: Spontaneous Alex coma scale verbal response: Orientated [place] coma scale motor response: Obey commands Alex coma scale total score: 15
[2020-02-16] MEDS: TRAMADOL 50 MG TABLET 100 MG PO (20:49)
[2020-02-16] MEDS: METOCLOPRAMIDE 10 MG/2 ML INJ IV (20:50)
[2020-02-16 21:14] LABS: Magnesium 1.7 mg/dL (1.6-2.3); Phosphorous 2.9 mg/dL (2.5-4.5)
[2020-02-16 21:18] LABS: Alanine Aminotransferase 12 IU/L (<35); Albumin 3.7 g/dL (3.5-5.0); Albumin Globulin Ratio 1.3 (1.0-2.8); Alkaline Phosphatase 133 U/L (38-126); Aspartate Aminotransferase 26 IU/L (14-36); BUN Creatinine Ratio 22.7 (6-22); Bilirubin Total 0.5 mg/dL (0.2-1.3); Blood Urea Nitrogen 15 mg/dL (7-17); Calcium 8.7 mg/dL (8.4-10.2); Carbon Dioxide 18 mmol/L (22-32); Chloride 110 mmol/L (98-107); Estimated Glomerular Filt Rate > 60.0 mL/min (>60); Globulin 2.8 g/dL (1.7-4.1); Glucose 143 mg/dL (70-100); HEMOLYSIS < 15 (0-50); Potassium 3.8 mmol/L (3.4-5.1); Sodium 141 mmol/L (137-145); Total Protein 6.5 g/dL (6.3-8.2)
[2020-02-16 21:24] LABS: NT-proBNP (BNP-Adult 18+) 76 pg/mL (<125)
[2020-02-16 21:26] LABS: Troponin I < 0.012 ng/mL (0.01-0.034)
[2020-02-17] VITALS: BP 124/63; PULSE 113; RESP 10; TEMP 36.8; O2SAT 95
[2020-02-17] MEDS: DEXTROSE 5%-0.45% NS 1,000 ML 150 ML IV (00:17)
[2020-02-17 00:39] LABS: Blood Urea Nitrogen 14 mg/dL (7-17); Calcium 8.3 mg/dL (8.4-10.2); Carbon Dioxide 21 mmol/L (22-32); Chloride 109 mmol/L (98-107); Estimated Glomerular Filt Rate > 60.0 mL/min (>60); Glucose 196 mg/dL (70-100); HEMOLYSIS < 15 (0-50); Sodium 136 mmol/L (137-145)
[2020-02-17] MEDS: SODIUM CHLORIDE 0.9% 1,000 ML 75 ML IV (01:28)
[2020-02-17] MEDS: INSULIN GLARGINE 100 UNIT/ML 3ML PEN 25 UNIT SUBCUT (02:53)
[2020-02-17 03:18] VITALS: BP 110/74; PULSE 91; RESP 14; TEMP 36.6; O2SAT 97
[2020-02-17] MEDS: METOCLOPRAMIDE 10 MG/2 ML INJ IV (04:42)
[2020-02-17] MEDS: TRAMADOL 50 MG TABLET 100 MG PO (04:42)
[2020-02-17 05:03] LABS: Magnesium 1.6 mg/dL (1.6-2.3)
[2020-02-17 05:04] LABS: BUN Creatinine Ratio 20.3 (6-22); Blood Urea Nitrogen 13 mg/dL (7-17); Calcium 8.3 mg/dL (8.4-10.2); Carbon Dioxide 20 mmol/L (22-32); Chloride 109 mmol/L (98-107); Estimated Glomerular Filt Rate > 60.0 mL/min (>60); Glucose 203 mg/dL (70-100); HEMOLYSIS < 15 (0-50); Sodium 135 mmol/L (137-145)
--- NOTE | 2020-02-17 05:54 | PC.NURSE ---
retail shift leader note: Patient on insulin drip initially. Labs performed at midnight, insulin drip turned off and discontinued at 0130. 25 units Lantus administered around 0250. Patient has remained AOx4, but drowsy. Awakens easily, follows commands and able to express concerns. Patient eating/drinking well with no complaints of nausea. PRN Tramadol administered at 0442 along with Reglan, per patient request for pain 610 - generalized. IV fluids changed throughout the night, IV remains patent and intact. VSS, on RA. Lungs clear. Patient currently sleeping, no distress noted. Call light in reach, will continue to monitor.
[2020-02-17 07:00] VITALS: BP 105/59; PULSE 100; RESP 10; TEMP 37.1; O2SAT 97
[2020-02-17 07:50] LABS: Add Manual Diff / Slide Review NO; Basophils Absolute Auto 100 /uL (0-100); Basophils Percent Auto 0.6 % (0-2); Eosinophils Absolute Auto 0 /uL (0-450); Eosinophils Percent Auto 0.3 % (2-4); Hematocrit 34.6 % (36-46); Hemoglobin 11.5 g/dL (12.0-16.0); Lymphocytes Absolute Auto 1300 /uL (1100-4500); Lymphocytes Percent Auto 15.2 % (25-40); Mean Corpuscular HGB Conc 33.1 % (30-36); Mean Corpuscular Volume 96.5 fL (80-100); Monocytes Absolute Auto 500 /uL (0-900); Monocytes Percent Auto 5.9 % (3-14); Neutrophils Absolute Auto 6800 /uL (1500-7000); Platelet Count 262 X10^3/uL (150-400); Red Blood Cell Count 3.59 X10^6/uL (4.0-5.2); White Blood Cell Count 8.7 X10^3/uL (4.5-11.0)
[2020-02-17 08:14] LABS: Procalcitonin < 0.05 ng/mL (<0.5)
[2020-02-17] MEDS: INSULIN ASPART 100 UNIT/ML INSULN PEN SUBCUT (08:36)
[2020-02-17] MEDS: INSULIN ASPART 100 UNIT/ML INSULN PEN 7 UNIT SUBCUT (08:39)
[2020-02-17] MEDS: MAGNESIUM CHLORIDE 64 MG TABLET PO (08:39)
--- NOTE | 2020-02-17 10:26 | PM.DS.1 ---
History of Present Illness History of Present Illness Date Patient Seen: 02/16/20 Chief complaint: CHEST PAIN DEHYDRATION DIBETIC Narrative: Written by Julio Cesar COLES: Ms. Sarabjit Jimenes is a 29-year-old female patient with a history significant for poorly controlled type 1 diabetes, frequent admissions for DKA, migraines and irregular menstruation (last menstrual period over 1 year ago) who presents to the ER with complaints diarrhea for 24 hours. Patient states that she had an onset of watery diarrhea yesterday starting in had elevated blood sugars that time however she states she was able manage her sugars and get them stable in the 300s. She states today she fell worse feeling unwell body and describes poor appetite but denies nausea vomiting while continued to have diarrhea. She reports she had been clindamycin for 2 weeks following repair of her scalp which she states is doing excellent. The patient reports marked edema of her extremities with associated non radiating chest tightness and shortness of breath following discharge from last admission 02/03/2020 which is verified by the patient's mother. The patient remedy this by drinking a tea that was recommended to help her diurese resolving in approximately 3 days. The patient states she has not previously experienced the symptoms. She reports no recent fevers or chills headaches or dizziness, nasal congestion or sore throat. She reported chest pain upon arrival to the ED and presently denies chest pain or palpitations and has no shortness of breath cough or wheezing. She denies abdominal pain and had nausea prior to arrival but not at present. She has had diarrhea described as watery for 24 hours but no stool since presenting for care. Patient denies further extremity pain, numbness or tingling. On admission the patient complains of pain 10/10 per triage note is not available to identify location. Patient denies complaints of pain at time of encounter. Upon arrival to the ER the patient is afebrile with temperature 97.1?, initial heart rate reading is charted is a 79 and subsequently 159. Blood pressure is 175/85 with respiratory rate of 32 saturating 98% on room air. A chest x-ray is found to be normal for age with no acute cardiopulmonary findings. On laboratory analysis patient has white count of 13.8 with hemoglobin of 14.8 and hematocrit of 47.4 with platelets 442. On chemistry she has a sodium of 144 and a potassium 4.5, her chloride is elevated at 112 with bicarb of less than 5. She has a BUN of 16 and creatinine 0.8. Her initial nonfasting glucose is 599. Total bilirubin is 0.4 with AST of 15, ALT 16 alkaline phosphatase of 211. She has an albumin of 4.8. On VBG she has a pH of 7.05, bicarb minute of 4 at a base excess of -27. She has lactic acid of 2.11 a procalcitonin that is negative at 0.05. Her urinalysis is positive for protein, glucose and ketones and negative for nitrates leukocyte esterase wbc's or bacteria. A urine tox screen is positive for oxycodone. screening is negative. The patient is admitted to the hospitalist service for recurrent DKA. Discharge Providers Provider Date of admission: 02/16/20 16:04 Discharge Date: 02/17/20 Consults: 02/16/20 17:03 Consult to Dietitian, Adult Routine Comment: Reason For Exam: dka, weight loss 02/16/20 21:05 Consult to COSMETIC SALES - Hard Candy Batch Mixer Routine Comment: Patient needs PCP COSMETIC SALES Consult: [facility] Res Need Discharge provider: Susy Vargas DO Summary Hospital Course Discharge Diagnosis: 1. Acute diabetic ketoacidosis, in uncontrolled diabetes mellitus type 1, present on admission, active. 2. Acute diarrhea, present on admission. Resolved. 3. Acute chest pain, present on admission. Resolved. 4. History of scalp abscess, status post I&D, resection and recent closure, chronic, present on admission. Stable. 5. Acute on chronic severe protein calorie malnutrition, present on admission. Stable. 6. Concern for neurogenic bladder secondary to autonomic nerve dysfunction and uncontrolled diabetes mellitus type 1. Ruled out. Hospital Course: Sarabjit Jimenes is a 30-year-old female with a past medical history significant for type 1 diabetes with recurrent DKA, prior fungal pyelolithiasis, and recent scalp abscess status post I&D, resection, and closurewho presented to the ED with DKA. 1. Acute diabetic ketoacidosis, in uncontrolled diabetes mellitus type 1, present on admission, active. -Hemoglobin A1c >14% since June of 2018 indicative of poor glycemic control which is due to dietary and medication non-compliance. -Patient has had multiple recurrent DKA hospitalizations approximately every 2 weeks for DKA which is a poor prognostic indicator. -Initial blood glucose 599, VBG pH 7.05, HC03 4, base excess -27. Anion gap is 28. COVID-19 negative. WBC elevated at 13.8 without shift which was reactive and normalized at 8.7. Procalcitonin negative. -Initiated DKA protocol with insulin gtt, fluid replacement with normal saline then transitioned to 0.45% normal saline and then D5 0.45% normal saline until blood glucose was less than 250. Monitored blood glucose and electrolytes every 4 hours until anion gap closed and replaced electrolytes as necessary. Transitioned off insulin gtt and restarted home regimen. -Continued Tresiba 50 units daily, nutritional insulin with Humalog 7 units with meals and medium dose correctional scale insulin. -Continued to reinforce need for routine blood glucose checks, corrected insulin management and appropriate diet. Continued to recommended food journal and glucose logs which the patient does not comply. Continue outpatient follow-up with medicare compliance auditor Sabine COLES scheduled for 03/07/2020 and new PCP lindsey Limon on t [facility]. -Consulted dietitian to reinforce dietary management and we appreciate her time and recommendations. Continue outpatient DSME (diabetic self-management education), however, patient has never followed through and made any of her appointments. -Discussed patient with the patients medicare compliance auditor Sabine COLES who has only had one follow-up with the patient as she continually no shows or cancels appointments and she raised concern for bullemia/eating disorder, as well as, narcotic seeking behavior. Recommend avoidance of administering narcotics if possible. 2. Acute diarrhea, present on admission. Resolved. -Patient was recently on clindamycin for 2 weeks for scalp wound which may be triggering event for diarrhea. Patient denies abdominal pain or nausea. -GI stool panel not obtained as patient had no recurrence of diarrhea. 3. Acute chest pain, present on admission. Resolved. -Patient complained of chest pain to ED provider but denied chest pain throughout hospitalization. Likely musculoskeletal and due to DKA. -EKG demonstrated sinus tachycardia with heart rate 142, biphasic T-wave in V1, small Q-waves not meeting infarct criteria in leads II, III and AVF. -Troponin negative < 0.012. ProBNP within normal limits at 76. 4. History of scalp abscess, status post I&D, resection and recent closure, chronic, present on admission. Stable. -Surgical wound is healing well and clean without erythema, edema or tenderness. Patient recently completed 2 week course of antibiotics with clindamycin likely triggering diarrhea which may have precipitated DKA. -Urine toxicology screen positive for oxycodone prescribed by plastic surgeon Dr. Jenkins following closure of scalp wound on 01/27/2020. Concern raised by patient's medicare compliance auditor for drug seeking during her visit in 10/2019 and patient does receive hydomorphone every time she is admitted for DKA which is at least 11 times in the last 6 months. Recommend avoidance of administering narcotics if possible. 5. Acute on chronic severe protein calorie malnutrition, present on admission. Stable. -Secondary to poorly controlled DM1 as evidenced by 10.5% unintentional weight loss in 3 weeks (severe), BMI 17.6 (severe), patient's repeat admissions for DKA c current admission BG 565 with ketones 17.5. -Tin Flopper Sabine COLES raised concern for bullemia/eating disorder and not taking insulin to avoid weight gain. Recommend evaluation by a psychiatrist who specializes in eating disorders. -Consulted energy efficient site manager and we appreciate her time and recommendations. 6. Concern for neurogenic bladder secondary to autonomic nerve dysfunction and uncontrolled diabetes mellitus type 1. Ruled out. -Patient denies symptoms including dysuria, urinary hesitancy, urgency or frequency more than usual. -Urinalysis does not appear infected and not surprisingly is positive for protein, glucose and ketones. -Continued bladder scan as needed. Patient was able to spontaneously void. Exam Vital Signs (past 8 hours): - 02/17/20 03:18 02/17/20 07:00 Temperature 97.8 F 98.7 F Pulse Rate 91 H 100 H Respiratory Rate 14 10 L Blood Pressure 110/74 105/59 L Pulse Oximetry 97 97 Oxygen Delivery Method Room Air Oxygen Flow Rate 0 Narrative Exam Narrative: General: Young female lying in bed comfortably and in no cute distress, well-developed, well-nourished, appropriately interactive. HEENT: Normocephalic, atraumatic. External ears without defect. Pupils equal, round, and reactive to light. Anicteric sclerae, moist conjunctivae, and no lid lag. Oropharynx free of erythema and cobble stoning with moist mucosa. Large surgical scalp wound healing well without erythema or edema. Neck: Supple with full range of motion. No lymphadenopathy or thyromegaly. Cardiovascular: Regular rate and mildly tachycardic without murmurs, rubs, or gallops appreciated. Pulmonary: Clear to auscultation bilaterally without crackles, wheezes, or rhonchi. Normal respiratory effort with no use of accessory muscles. Abdomen: Soft, bowel sounds present, nontender, nondistended. No hepatosplenomegaly or masses appreciated. Extremities: No clubbing, cyanosis, or edema. Skin: Normal temperature, turgor, and texture; no rash, ulcers, or subcutaneous nodules appreciated. Neurological: Cranial nerves grossly intact. Psychiatric: Normal mood and affect. Alert and oriented to person, place, and time. Objective Labs Result Diagrams: 02/17/20 04:30 02/17/20 04:30 Labs: Laboratory Results - last 24 hr 02/16/20 02/16/20 02/16/20 13:05 13:05 13:05 WBC 13.8 H RBC 4.68 Hgb 14.8 Hct 47.4 H MCV 101.1 H MCH 31.6 MCHC 31.2 RDW 14.3 Plt Count 442 H Neut % (Auto) 80.2 H Lymph % (Auto) 15.4 L Wilkinson % (Auto) 3.3 Eos % (Auto) 0.0 L Baso % (Auto) 1.1 Neut # (Auto) 24795 H Lymph # (Auto) 2100 Wilkinson # (Auto) 400 Eos # (Auto) 0 Baso # (Auto) 100 VBG pH VBG pCO2 VBG pO2 VBG HCO3 VBG Total CO2 VBG O2 Saturation VBG Base Excess Sodium 140 Potassium 5.2 H Chloride 102 Carbon Dioxide < 5 L* BUN 17 Creatinine 0.97 Estimated GFR > 60.0 BUN/Creatinine Ratio 17.5 Glucose 599 H* Lactate Calcium 9.9 Phosphorus Magnesium Total Bilirubin 0.4 AST 15 ALT 16 Alkaline Phosphatase 211 H Troponin I NT-Pro-B Natriuret Pep Total Protein 8.7 H Albumin 4.8 Globulin 3.9 Albumin/Globulin Ratio 1.2 Procalcitonin < 0.05 Serum , Qual Urine Color Urine Appearance Urine pH Ur Specific [place] Urine Protein Urine Glucose (UA) Urine Ketones Urine Occult Blood Urine Nitrate Urine Bilirubin Urine Urobilinogen Ur Leukocyte Esterase Urine RBC Urine WBC Urine Bacteria Ur Culture Indicated? U Opiates 300ng/mL cut Ur Oxycodone Screen Urine Methadone Screen Ur Barbiturates Screen U Tricyclic Antidepress Ur Phencyclidine Scrn Ur Amphetamines Screen U Methamphetamines Scrn Ur MDMA Scrn (Ecstasy) U Benzodiazepines Scrn Urine Cocaine Screen U Marijuana (THC) Screen Ketones 18.29 H COVID-19 PCR 02/16/20 02/16/20 02/16/20 13:05 13:06 13:35 WBC RBC Hgb Hct MCV MCH MCHC RDW Plt Count Neut % (Auto) Lymph % (Auto) Wilkinson % (Auto) Eos % (Auto) Baso % (Auto) Neut # (Auto) Lymph # (Auto) Wilkinson # (Auto) Eos # (Auto) Baso # (Auto) VBG pH 7.05 L* VBG pCO2 12.7 L VBG pO2 60 H VBG HCO3 4 L VBG Total CO2 < 5 L VBG O2 Saturation 79 H VBG Base Excess -27.0 L Sodium Potassium Chloride Carbon Dioxide BUN Creatinine Estimated GFR BUN/Creatinine Ratio Glucose Lactate 2.1 Calcium Phosphorus Magnesium Total Bilirubin AST ALT Alkaline Phosphatase Troponin I NT-Pro-B Natriuret Pep Total Protein Albumin Globulin Albumin/Globulin Ratio Procalcitonin Serum , Qual Negative Urine Color Urine Appearance Urine pH Ur Specific [place] Urine Protein Urine Glucose (UA) Urine Ketones Urine Occult Blood Urine Nitrate Urine Bilirubin Urine Urobilinogen Ur Leukocyte Esterase Urine RBC Urine WBC Urine Bacteria Ur Culture Indicated? U Opiates 300ng/mL cut Ur Oxycodone Screen Urine Methadone Screen Ur Barbiturates Screen U Tricyclic Antidepress Ur Phencyclidine Scrn Ur Amphetamines Screen U Methamphetamines Scrn Ur MDMA Scrn (Ecstasy) U Benzodiazepines Scrn Urine Cocaine Screen U Marijuana (THC) Screen Ketones COVID-19 PCR 02/16/20 02/16/20 02/16/20 13:45 16:10 16:20 WBC RBC Hgb Hct MCV MCH MCHC RDW Plt Count Neut % (Auto) Lymph % (Auto) Wilkinson % (Auto) Eos % (Auto) Baso % (Auto) Neut # (Auto) Lymph # (Auto) Wilkinson # (Auto) Eos # (Auto) Baso # (Auto) VBG pH VBG pCO2 VBG pO2 VBG HCO3 VBG Total CO2 VBG O2 Saturation VBG Base Excess Sodium 144 Potassium 4.5 Chloride 112 H Carbon Dioxide < 5 L* BUN 16 Creatinine 0.80 Estimated GFR > 60.0 BUN/Creatinine Ratio 20.0 Glucose 345 H D Lactate 2.1 Calcium 9.0 Phosphorus Magnesium Total Bilirubin AST ALT Alkaline Phosphatase Troponin I NT-Pro-B Natriuret Pep Total Protein Albumin Globulin Albumin/Globulin Ratio Procalcitonin Serum , Qual Urine Color Urine Appearance Urine pH Ur Specific [place] Urine Protein Urine Glucose (UA) Urine Ketones Urine Occult Blood Urine Nitrate Urine Bilirubin Urine Urobilinogen Ur Leukocyte Esterase Urine RBC Urine WBC Urine Bacteria Ur Culture Indicated? U Opiates 300ng/mL cut Ur Oxycodone Screen Urine Methadone Screen Ur Barbiturates Screen U Tricyclic Antidepress Ur Phencyclidine Scrn Ur Amphetamines Screen U Methamphetamines Scrn Ur MDMA Scrn (Ecstasy) U Benzodiazepines Scrn Urine Cocaine Screen U Marijuana (THC) Screen Ketones COVID-19 PCR Negative 02/16/20 02/16/20 02/16/20 17:10 17:10 20:40 WBC RBC Hgb Hct MCV MCH MCHC RDW Plt Count Neut % (Auto) Lymph % (Auto) Wilkinson % (Auto) Eos % (Auto) Baso % (Auto) Neut # (Auto) Lymph # (Auto) Wilkinson # (Auto) Eos # (Auto) Baso # (Auto) VBG pH VBG pCO2 VBG pO2 VBG HCO3 VBG Total CO2 VBG O2 Saturation VBG Base Excess Sodium 141 Potassium 3.8 Chloride 110 H Carbon Dioxide 18 L BUN 15 Creatinine 0.66 Estimated GFR > 60.0 BUN/Creatinine Ratio 22.7 H Glucose 143 H D Lactate Calcium 8.7 Phosphorus Magnesium Total Bilirubin 0.5 AST 26 ALT 12 Alkaline Phosphatase 133 H Troponin I NT-Pro-B Natriuret Pep Total Protein 6.5 Albumin 3.7 Globulin 2.8 Albumin/Globulin Ratio 1.3 Procalcitonin Serum , Qual Urine Color Yellow Urine Appearance Clear Urine pH 5.0 Ur Specific [place] 1.020 Urine Protein 1+ H Urine Glucose (UA) 1+ H Urine Ketones 3+ H Urine Occult Blood Trace-lysed Urine Nitrate Negative Urine Bilirubin Negative Urine Urobilinogen 0.2 Ur Leukocyte Esterase Negative Urine RBC 0-1/hpf Urine WBC 0-1/hpf Urine Bacteria None seen Ur Culture Indicated? Cult not indicated U Opiates 300ng/mL cut Negative Ur Oxycodone Screen Positive H Urine Methadone Screen Negative Ur Barbiturates Screen Negative U Tricyclic Antidepress Negative Ur Phencyclidine Scrn Negative Ur Amphetamines Screen Negative U Methamphetamines Scrn Negative Ur MDMA Scrn (Ecstasy) Negative U Benzodiazepines Scrn Negative Urine Cocaine Screen Negative U Marijuana (THC) Screen Negative Ketones COVID-19 PCR 02/16/20 02/16/20 02/16/20 20:40 20:40 20:40 WBC RBC Hgb Hct MCV MCH MCHC RDW Plt Count Neut % (Auto) Lymph % (Auto) Wilkinson % (Auto) Eos % (Auto) Baso % (Auto) Neut # (Auto) Lymph # (Auto) Wilkinson # (Auto) Eos # (Auto) Baso # (Auto) VBG pH VBG pCO2 VBG pO2 VBG HCO3 VBG Total CO2 VBG O2 Saturation VBG Base Excess Sodium Cancelled Potassium Cancelled Chloride Cancelled Carbon Dioxide Cancelled BUN Cancelled Creatinine Cancelled Estimated GFR Cancelled BUN/Creatinine Ratio Cancelled Glucose Cancelled Lactate Calcium Cancelled Phosphorus 2.9 Magnesium 1.7 Total Bilirubin AST ALT Alkaline Phosphatase Troponin I NT-Pro-B Natriuret Pep 76 Total Protein Albumin Globulin Albumin/Globulin Ratio Procalcitonin Serum , Qual Urine Color Urine Appearance Urine pH Ur Specific [place] Urine Protein Urine Glucose (UA) Urine Ketones Urine Occult Blood Urine Nitrate Urine Bilirubin Urine Urobilinogen Ur Leukocyte Esterase Urine RBC Urine WBC Urine Bacteria Ur Culture Indicated? U Opiates 300ng/mL cut Ur Oxycodone Screen Urine Methadone Screen Ur Barbiturates Screen U Tricyclic Antidepress Ur Phencyclidine Scrn Ur Amphetamines Screen U Methamphetamines Scrn Ur MDMA Scrn (Ecstasy) U Benzodiazepines Scrn Urine Cocaine Screen U Marijuana (THC) Screen Ketones COVID-19 PCR 02/16/20 02/17/20 02/17/20 20:40 00:20 04:30 WBC RBC Hgb Hct MCV MCH MCHC RDW Plt Count Neut % (Auto) Lymph % (Auto) Wilkinson % (Auto) Eos % (Auto) Baso % (Auto) Neut # (Auto) Lymph # (Auto) Wilkinson # (Auto) Eos # (Auto) Baso # (Auto) VBG pH VBG pCO2 VBG pO2 VBG HCO3 VBG Total CO2 VBG O2 Saturation VBG Base Excess Sodium 136 L 135 L Potassium 4.0 4.0 Chloride 109 H 109 H Carbon Dioxide 21 L 20 L BUN 14 13 Creatinine 0.61 0.64 Estimated GFR > 60.0 > 60.0 BUN/Creatinine Ratio 23.0 H 20.3 Glucose 196 H 203 H Lactate Calcium 8.3 L 8.3 L Phosphorus Magnesium Total Bilirubin AST ALT Alkaline Phosphatase Troponin I < 0.012 NT-Pro-B Natriuret Pep Total Protein Albumin Globulin Albumin/Globulin Ratio Procalcitonin Serum , Qual Urine Color Urine Appearance Urine pH Ur Specific [place] Urine Protein Urine Glucose (UA) Urine Ketones Urine Occult Blood Urine Nitrate Urine Bilirubin Urine Urobilinogen Ur Leukocyte Esterase Urine RBC Urine WBC Urine Bacteria Ur Culture Indicated? U Opiates 300ng/mL cut Ur Oxycodone Screen Urine Methadone Screen Ur Barbiturates Screen U Tricyclic Antidepress Ur Phencyclidine Scrn Ur Amphetamines Screen U Methamphetamines Scrn Ur MDMA Scrn (Ecstasy) U Benzodiazepines Scrn Urine Cocaine Screen U Marijuana (THC) Screen Ketones COVID-19 PCR 02/17/20 02/17/20 02/17/20 04:30 04:30 04:30 WBC 8.7 RBC 3.59 L Hgb 11.5 L Hct 34.6 L MCV 96.5 D MCH 32.0 MCHC 33.1 RDW 14.0 Plt Count 262 Neut % (Auto) 78.0 H Lymph % (Auto) 15.2 L Wilkinson % (Auto) 5.9 Eos % (Auto) 0.3 L Baso % (Auto) 0.6 Neut # (Auto) 6800 Lymph # (Auto) 1300 Wilkinson # (Auto) 500 Eos # (Auto) 0 Baso # (Auto) 100 VBG pH VBG pCO2 VBG pO2 VBG HCO3 VBG Total CO2 VBG O2 Saturation VBG Base Excess Sodium Potassium Chloride Carbon Dioxide BUN Creatinine Estimated GFR BUN/Creatinine Ratio Glucose Lactate Calcium Phosphorus Magnesium 1.6 Total Bilirubin AST ALT Alkaline Phosphatase Troponin I NT-Pro-B Natriuret Pep Total Protein Albumin Globulin Albumin/Globulin Ratio Procalcitonin < 0.05 Serum , Qual Urine Color Urine Appearance Urine pH Ur Specific [place] Urine Protein Urine Glucose (UA) Urine Ketones Urine Occult Blood Urine Nitrate Urine Bilirubin Urine Urobilinogen Ur Leukocyte Esterase Urine RBC Urine WBC Urine Bacteria Ur Culture Indicated? U Opiates 300ng/mL cut Ur Oxycodone Screen Urine Methadone Screen Ur Barbiturates Screen U Tricyclic Antidepress Ur Phencyclidine Scrn Ur Amphetamines Screen U Methamphetamines Scrn Ur MDMA Scrn (Ecstasy) U Benzodiazepines Scrn Urine Cocaine Screen U Marijuana (THC) Screen Ketones COVID-19 PCR Discharge Plan Discharge Plan Patient Disposition: Home Nursing Discharge Comment: [facility] (dr azevedo office) will call you with a follow up appointment in the next 3-5 days Discharge orders & Medications Prescriptions: Continued glucose 4 gram tablet,chewable 4 gram PO Q15M PRN (Reason: hypoglycemia) Qty: 30 RF: 0 Glucagon Emergency Kit (human) 1 mg recon soln 1 mg subcut DIRECTED RF: 0 insulin degludec 200 unit/mL (3 mL) Insulin Pen 50 unit SUBCUT DAILY RF: 0 insulin aspart U-100 [Novolog Flexpen U-100 Insulin] 100 unit/mL (3 mL) insulin pen 7 unit SUBCUT AC RF: 0 lisinopril 10 mg tablet 10 mg PO DAILY RF: 0 hydroxyzine pamoate 50 mg capsule 50 mg PO QID PRN (Reason: pain) RF: 0 Follow up/Referrals: [Other] - 3-5 Days Diet/Activity/Treatments Diet: Carb-consistent/Diabetic, Low-fat, Low-sodium and Low-cholesterol Activity: Activity as tolerated Visit Report/Discharge Packet Instructions: DI for Diabetic Ketoacidosis Visit Report Forms: Patient Portal/API, Stroke Signs & Symptoms Discharges patient from system. Discharge Date/Time: 02/17/20 10:50
--- NOTE | 2020-02-17 10:37 | PC.NURSE ---
Addendum entered by Federico Portillo R.N. 02/17/20 10:55: Clarified tresiba dosing with Dr. Vargas. Instruction received for pt to receive full 50 units of tresiba today. Related this information to pt and mom. Pt left at 1050 with all belongings, tresiba. Mom providing transportation home. Pt was in no distress and ambulated independently to exit. Original Note: Dc packet and educational material reviewed. Reviewed sick day plan with pt. Pt states she was unable to rehydrate after 24 hours of diarrhea. She verbalizes understanding of medication regimen. She verbalizes understanding of need for f/u appt and that her PCP office will contact her with an appt time. She is instructed on dx, med regimen, sick day plan, s/s prompting emergency tx. Removed midline IV. Pt tolerated well. Pt is awaiting her mom to come pick her up- states she will be here [phone]. Tresiba retrieved from pharmacy.
--- NOTE | 2020-02-17 15:58 | CM.SWNOTE ---
DRUM PLATER Note: Reviewed chart. Patient is a 30yr old female admitted to [facility] with DKA. Patient known to this DRUM PLATER from previous admits for same diagnosis. Provider requesting DRUM PLATER assist with finding and making appointment for PCP. Placed call to [facility] # ext# [phone]. Per customer care at [facility] KelleeYaelnikita is not in today. However, DRUM PLATER was told that patient's PCP is at [facility]. Placed call to clinic re: new/next appointment? [facility] coordinator recommended that patient be scheduled at there new [facility]. DRUM PLATER met with patient and she is agreeable. First appointment scheduled on March 02 at 4:20pm with Dr. Bryson. DRUM PLATER provided this information to patient and provider/Dr. Vargas. Patient reports that her Mother is picking her up today and that she has no additional needs. P: Home today. New appointment patient made and information provided to patient. RAYMOND Valladares
== END 2020-02-17 10:50 | disposition home or self-care (01) | DRG 639 ==
LOC: ED 13:19 → ICU 16:04
PROVIDERS: Nurse Practitioner Adult Health; Admitting Provider Internal Medicine; Emergency Provider Emergency Medicine; Referring Provider Emergency Medicine; Visit Provider Internal Medicine
DX: E10.10 Type 1 diabetes mellitus with ketoacidosis without coma (principal); R19.7 Diarrhea, unspecified; R07.9 Chest pain, unspecified; E10.43 Type 1 diabetes mellitus with diabetic autonomic (poly)neuropathy; S01.00XD Unspecified open wound of scalp, subsequent encounter; Z79.4 Long term (current) use of insulin
CPT/HCPCS: 36415; 71045; 80048; 80053; 80305; 81001; 82009; 82805; 82962; 83605; 83735; 83880; 84100; 84145; 84484; 84703; 85025; 87040; 87635; 93005; 93010; 96365; 96366; 96375; 96376; 99284; J1170; J2405; J2765; J7050

== ENCOUNTER 2020-03-04 22:34 | Inpatient (IN) | payer MEDICAID, OTHER, SELFPAY ==
[2020-02-16 16:30] VITALS: BMI 18.1
[2020-03-04 22:39] VITALS: BP 135/87; PULSE 135; RESP 18; TEMP 36.5; O2SAT 98; BMI 18.1
--- NOTE | 2020-03-04 23:03 | DI.RAD.S_ITS ---
PROCEDURE: XR ANKLE RT MIN 3V INDICATIONS: pain TECHNIQUE: 3 views of the ankle were acquired. COMPARISON: None. FINDINGS: Bones: No fractures or dislocations. Ankle mortise is normally aligned. No suspicious bony lesions. Soft tissues: No tibiotalar joint effusion. Achilles tendon appears normal. IMPRESSION: No acute fracture. No osseous lesion. If symptoms and/or clinical suspicion for pathology persist, further assessment with repeat, or advanced imaging (e.g., CT, MRI, or bone scan) may be helpful for further assessment. Dictated by: Nataly Ozuna M.D. on 03/05/2020 at 9:46 Approved by: Nataly Ozuna M.D. on 03/05/2020 at 9:47
--- NOTE | 2020-03-04 23:20 | PC.NURSE ---
TELEGRAPH OFFICE ROUTE AIDE took patient BG and measured greater then 500. Patient JOSEFINA score increased to level 2. Provider notified.
[2020-03-04 23:22] VITALS: BP 142/87; PULSE 130; O2SAT 99
[2020-03-04 23:30] VITALS: BP 157/96; PULSE 141; O2SAT 97
[2020-03-04] MEDS: IBUPROFEN 400 MG TABLET PO (23:46)
[2020-03-04] MEDS: ACETAMINOPHEN 325 MG TABLET PO (23:46)
--- NOTE | 2020-03-04 23:53 | DI.RAD.S_ITS ---
PROCEDURE: XR CHEST 1V INDICATIONS: Diabetic ketoacidosis TECHNIQUE: One view of the chest was acquired. COMPARISON: [facility], CR, XR CHEST 1V, 02/16/2020, 13:43. FINDINGS: Surgical changes and devices: None. Lungs and pleura: Lungs are clear. No pleural effusions or pneumothorax. Mediastinum: Mediastinal contours appear normal. Heart size is normal. Bones and chest wall: No suspicious bony lesions. Overlying soft tissues appear unremarkable. IMPRESSION: No acute process. Dictated by: Nataly Ozuna M.D. on 03/05/2020 at 9:48 Approved by: Nataly Ozuna M.D. on 03/05/2020 at 9:49
[2020-03-05] VITALS (24 sets, daily range): BP systolic 94–135; BP diastolic 56–89; PULSE 106–136; RESP 10–33; TEMP 36.4–37.3; O2SAT 95–100; BMI 18.1
--- NOTE | 2020-03-05 00:01 | PC.NURSE ---
Patient states fractured ankle several years ago and has chronic ankle pain that has worsened today. Denies fall or injury. No swelling or bruising noted, cap refill <2s, and pulse +2. Blood glucose also taken and noted to be >500. Provider notified. Patient placed on monitor and EKG performed.
[2020-03-05] MEDS: ONDANSETRON 4 MG/2 ML INJ IV (00:12)
[2020-03-05] MEDS: SODIUM CHLORIDE 0.9% 1,000 ML 1000 ML IV (00:12)
[2020-03-05 00:32] LABS: Add Manual Diff / Slide Review NO; Basophils Absolute Auto 100 /uL (0-100); Basophils Percent Auto 1.4 % (0-2); Eosinophils Absolute Auto 0 /uL (0-450); Eosinophils Percent Auto 0.1 % (2-4); Hematocrit 44.8 % (36-46); Hemoglobin 14.5 g/dL (12.0-16.0); Lymphocytes Absolute Auto 900 /uL (1100-4500); Lymphocytes Percent Auto 15.4 % (25-40); Mean Corpuscular HGB Conc 32.4 % (30-36); Mean Corpuscular Hemoglobin 32.7 PG (26-34); Mean Corpuscular Volume 100.9 fL (80-100); Monocytes Absolute Auto 300 /uL (0-900); Neutrophils Absolute Auto 4300 /uL (1500-7000); Neutrophils Percent Auto 77.1 % (50-75); Platelet Count 361 X10^3/uL (150-400); Red Blood Cell Count 4.44 X10^6/uL (4.0-5.2); Red Cell Distribution Width 13.7 % (11.6-14.8); White Blood Cell Count 5.5 X10^3/uL (4.5-11.0)
[2020-03-05 00:37] LABS: Lactate (Lactic Acid) 1.1 mmol/L (0.7-2.1)
[2020-03-05 00:38] LABS: Alanine Aminotransferase 10 IU/L (<35); Albumin 4.2 g/dL (3.5-5.0); Albumin Globulin Ratio 1.4 (1.0-2.8); Alkaline Phosphatase 177 U/L (38-126); Aspartate Aminotransferase 13 IU/L (14-36); BUN Creatinine Ratio 22.5 (6-22); Bilirubin Total 0.6 mg/dL (0.2-1.3); Blood Urea Nitrogen 16 mg/dL (7-17); Calcium 8.9 mg/dL (8.4-10.2); Chloride 92 mmol/L (98-107); Estimated Glomerular Filt Rate > 60.0 mL/min (>60); HEMOLYSIS < 15 (0-50); Potassium 5.3 mmol/L (3.4-5.1); Sodium 125 mmol/L (137-145); Total Protein 7.2 g/dL (6.3-8.2)
[2020-03-05 00:41] LABS: Ketones (Beta-Hydroxybutyrate) 9.22 mmol/L (<0.27)
[2020-03-05 00:43] LABS: Carbon Dioxide 9 mmol/L (22-32)
[2020-03-05 00:47] LABS: Glucose 1031 mg/dL (70-100)
[2020-03-05 00:53] LABS: Procalcitonin < 0.05 ng/mL (<0.5)
[2020-03-05] MEDS: HYDROMORPHONE 1 MG INJ IV (00:58)
[2020-03-05] MEDS: INSULIN DRIP PREMIX 100 UNIT/100 ML PLAST..BAG 6.5 UNIT IV (01:15)
--- NOTE | 2020-03-05 01:37 | ED.LOWEXIN ---
HPI - Extremity Injury (Lower) General Chief Complaint: Extremity Injury, Lower Stated Complaint: RIGHT ANKLE PAIN Time Seen by Provider: 03/04/20 23:03 Source: patient Mode of arrival: Ambulatory Limitations: no limitations History of Present Illness HPI Narrative: 30-year-old type 1 diabetic with multiple complications and recurrent admits for diabetic ketoacidosis presents tonight complaining of right ankle pain from a fracture that she sustained as a child. She appears to be tachypneic with Kussmaul breathing, is upset, complaining of abdominal pain and a point of care blood glucose is significantly elevated. Related Data Home Medications Medication Instructions Recorded Confirmed Glucagon Emergency Kit (human) 1 mg SUBCUT DIRECTED 02/16/19 02/16/20 insulin degludec 50 unit SUBCUT DAILY 11/21/19 02/16/20 insulin aspart U-100 [Novolog 7 unit SUBCUT AC 01/03/20 02/16/20 Flexpen U-100 Insulin] hydroxyzine pamoate 50 mg PO QID PRN 02/03/20 02/16/20 lisinopril 10 mg PO DAILY 02/03/20 02/16/20 amoxicillin mg PO BID 03/05/20 Previous Rx's Medication Instructions Recorded glucose 4 gram PO Q15M PRN #30 tab 12/12/18 Allergies Allergy/AdvReac Type Severity Reaction Status Date / Time arredondo [ARREDONDO] Allergy Intermediate Hives, Verified 02/16/20 14:27 pruritus iodine [IODINE] Allergy Intermediate rash, itchy Verified 02/16/20 14:27 morphine Allergy Intermediate Difficulty Verified 02/16/20 14:27 Breathing shellfish derived Allergy Intermediate rash Verified 02/16/20 14:27 [SHELLFISH DERIVED] adhesive [ADHESIVE] Allergy Unknown tape Verified 02/16/20 14:27 latex [LATEX] Allergy Unknown Hives Verified 02/16/20 14:27 Review of Systems Review of Systems Narrative: She denies fever, cough, cold, chills. With specific questioning she notes abdominal pain, right ankle pain, but does not seem to notice that her respiratory rate is elevated or mucous membranes are dry. She states that she has been using her insulin but can not tell me when the last time she actually measured a blood sugar was ROS Unobtainable: All systems reviewed & are unremarkable except as noted in HPI and below Patient History Medical History DKA (diabetic ketoacidoses) (Resolved) History of pyelonephritis (Resolved) Irregular menstrual cycle (Acute) Migraine headache (Chronic) Nephrolithiasis (Resolved) Type 1 diabetes mellitus (Chronic) Surgical History History of ureter stent (Resolved) Hx of local excision of skin lesion (Acute) Status post laser lithotripsy of ureteral calculus (Acute) Ulysses teeth extracted (Acute) Family History Father In good health Mother Cardiac disease Social History details: Engaged household members: significant other and family Smoking Status: Never smoker alcohol intake: former Smoking Status: Never smoker alcohol intake frequency: holidays/special occasions only Substance Use Type: does not use Exam Narrative Exam Narrative: General: Frail, cachectic, anxious, dry mucous membranes with Kussmaul breathing HEENT: mucous membranes, normal sclera with reactive pupils, your on her scalp is beginning to grow back at site of prior abscess Neck: No JVD, supple Respiratory: Lungs are clear to auscultation, no wheezing no rales no rhonchi. Deep, Full and symmetrical air movement consistent with Kussmaul breathing pattern Cardiac: Tachycardic with Regular rate and rhythm no murmurs no bruits Abdomen: Soft, diffusely tender without rebound or guarding, hypoactive bowel tones, no flank pain Skin: Warm and dry, no rashes Neurologic: Grossly neurologically intact with no obvious asymmetries or abnormalities Extremities: No trauma, well perfused. No specific injury, pain on range of motion, erythema or swelling to right ankle (where she is complaining of pain in tenderness) Psych: Dramatic affect of behavior with little to no insight into overall presentation Initial Vital Signs Initial Vital Signs: Vital Signs Temperature 97.7 F 03/04/20 22:39 Pulse Rate 135 H 03/04/20 22:39 Respiratory Rate 18 03/04/20 22:39 Blood Pressure 135/87 03/04/20 22:39 Pulse Oximetry 98 03/04/20 22:39 Course Orders Ordered: ED Orders 03/04/20 23:03 XR ankle RT min 3V Stat 03/04/20 23:53 XR chest 1V Stat Complete Blood Count AUTO DIFF Stat Comprehensive Metabolic Panel Stat Ketones (Beta-Hydroxybutyrate) Stat Lactate (Lactic Acid) Stat Procalcitonin Stat EKG-12 Lead Stat Bisacodyl (Dulcolax) 10 mg TX DAILY PRN PRN Reason: Constipation Enoxaparin Sodium (Lovenox) 30 mg SUBCUT DAILY BLAISE Hydromorphone HCl (Dilaudid) 2 mg PO Q6HR PRN PRN Reason: Pain, Severe (7-10) Last Admin: 03/05/20 04:38 Dose: 2 mg Documented by: JONATAN INSULIN DRIP PREMIX (Myxredlin Drip Premix) 100 unit in 100 mls @ 6 mls/hr IV TITRATE BLAISE; Protocol Last Titration: 03/05/20 04:12 Dose: 3 mls/hr, 3 mls/hr Documented by: JONATAN Cosigned by: [email or web address] Titration: 03/05/20 03:00 Dose: 6.5 mls/hr, 6.5 mls/hr Documented by: JONATAN Cosigned by: [email or web address] Titration: 03/05/20 02:32 Dose: 0 mls/hr, 0 mls/hr Documented by: LINDA Cosigned by: JONG Admin: 03/05/20 01:15 Dose: 6.5 mls/hr, 6.5 mls/hr Documented by: LINDA Cosigned by: NAN Sodium Chloride (Normal Saline 0.45%) 1,000 mls @ 100 mls/hr IV CONT BLAISE Last Admin: 03/05/20 03:15 Dose: 100 mls/hr Documented by: JONAATN Metoclopramide HCl (Reglan) 10 mg IV Q8HR BLAISE Last Admin: 03/05/20 06:00 Dose: 10 mg Documented by: JONATAN Metoclopramide HCl (Reglan) 10 mg IV Q6HR PRN PRN Reason: Nausea And Vomiting Sennosides (Senna) 17.2 mg PO BEDTIME PRN PRN Reason: constipation Discontinued Medications Acetaminophen (Tylenol) 325 mg PO NOW ONE Stop: 03/04/20 23:04 Last Admin: 03/04/20 23:46 Dose: 325 mg Documented by: RMARTIN Hydromorphone HCl (Dilaudid) 1 mg IV NOW ONE Stop: 03/05/20 00:50 Last Admin: 03/05/20 00:58 Dose: 1 mg Documented by: LINDA Sodium Chloride (Normal Saline 0.9%) 1,000 mls @ 1,000 mls/hr IV BOLUS ONE Stop: 03/05/20 00:52 Last Infusion: 03/05/20 01:18 Dose: 0 mls/hr Documented by: Admin: 03/05/20 00:12 Dose: 1,000 mls/hr Documented by: LINDA Potassium Chloride 10 meq/ (Sodium Chloride) 255 mls @ 130 mls/hr IV NOW ONE Stop: 03/05/20 06:07 Last Admin: 03/05/20 04:37 Dose: 130 mls/hr Documented by: JONATAN Cosigned by: TUTU Ibuprofen (Advil) 400 mg PO NOW ONE Stop: 03/04/20 23:04 Last Admin: 03/04/20 23:46 Dose: 400 mg Documented by: LINDA Ondansetron HCl (Zofran) 4 mg IV NOW ONE Stop: 03/04/20 23:54 Last Admin: 03/05/20 00:12 Dose: 4 mg Documented by: LINDA Vital Signs Vital signs: Vital Signs - 8 hr 03/04/20 22:39 03/04/20 23:22 03/04/20 23:30 Temperature 97.7 F Pulse Rate 135 H 130 H 141 H Respiratory Rate 18 Blood Pressure 135/87 142/87 H 157/96 H Pulse Oximetry 98 99 97 03/05/20 00:00 03/05/20 00:30 03/05/20 01:00 Temperature Pulse Rate 127 H 123 H 120 H Respiratory Rate 14 12 10 L Blood Pressure 127/86 129/87 135/89 Pulse Oximetry 98 99 99 03/05/20 01:30 03/05/20 02:00 Temperature Pulse Rate 123 H 124 H Respiratory Rate 10 L 14 Blood Pressure 121/75 124/71 Pulse Oximetry 96 96 MDM - Extremity Injury (Lower) Medical Records Attestation: I reviewed the patient's medical records. Lab Data Attestation: I reviewed the patient's lab results. Lab results narrative: gap 24 Result diagrams: 03/04/20 23:53 03/05/20 03:15 Labs: Lab Results 03/04/20 03/04/20 03/04/20 Range/Units 00:14 23:53 23:53 WBC 5.5 (4.5-11.0) X10^3/uL RBC 4.44 (4.0-5.2) X10^6/uL Hgb 14.5 (12.0-16.0) g/dL Hct 44.8 (36-46) % MCV 100.9 H (80-100) fL MCH 32.7 (26-34) PG MCHC 32.4 (30-36) % RDW 13.7 (11.6-14.8) % Plt Count 361 (150-400) X10^3/uL Neut % (Auto) 77.1 H (50-75) % Lymph % (Auto) 15.4 L (25-40) % Barron % (Auto) 6.0 (3-14) % Eos % (Auto) 0.1 L (2-4) % Baso % (Auto) 1.4 (0-2) % Neut # (Auto) 4300 (0138-8114) /uL Lymph # (Auto) 900 L (0858-5539) /uL Barron # (Auto) 300 (0-900) /uL Eos # (Auto) 0 (0-450) /uL Baso # (Auto) 100 (0-100) /uL VBG pH 7.29 L (7.33-7.43) VBG pCO2 20.9 L (45-50) mmHg VBG pO2 41 (35-45) mmHg VBG HCO3 10 L (23-28) mmol/L VBG Total CO2 11 L (24-29) mmol/L VBG O2 Saturation 72 (70-75) % VBG Base Excess -17.0 L (0-4) mmol/L Sodium (137-145) mmol/L Potassium (3.4-5.1) mmol/L Chloride (98-107) mmol/L Carbon Dioxide (22-32) mmol/L BUN (7-17) mg/dL Creatinine (0.52-1.04) mg/dL Estimated GFR (>60) mL/min BUN/Creatinine Ratio (6-22) Glucose (70-100) mg/dL Hemoglobin A1c (4.0-6.0) % Lactate (0.7-2.1) mmol/L Calcium (8.4-10.2) mg/dL Total Bilirubin (0.2-1.3) mg/dL AST (14-36) IU/L ALT (<35) IU/L Alkaline Phosphatase (38-126) U/L Total Protein (6.3-8.2) g/dL Albumin (3.5-5.0) g/dL Globulin (1.7-4.1) g/dL Albumin/Globulin Ratio (1.0-2.8) Procalcitonin < 0.05 (<0.5) ng/mL Ketones (<0.27) mmol/L 03/04/20 03/04/20 03/04/20 Range/Units 23:53 23:53 23:53 WBC (4.5-11.0) X10^3/uL RBC (4.0-5.2) X10^6/uL Hgb (12.0-16.0) g/dL Hct (36-46) % MCV (80-100) fL MCH (26-34) PG MCHC (30-36) % RDW (11.6-14.8) % Plt Count (150-400) X10^3/uL Neut % (Auto) (50-75) % Lymph % (Auto) (25-40) % Barron % (Auto) (3-14) % Eos % (Auto) (2-4) % Baso % (Auto) (0-2) % Neut # (Auto) (6630-9685) /uL Lymph # (Auto) (1422-1942) /uL Barron # (Auto) (0-900) /uL Eos # (Auto) (0-450) /uL Baso # (Auto) (0-100) /uL VBG pH (7.33-7.43) VBG pCO2 (45-50) mmHg VBG pO2 (35-45) mmHg VBG HCO3 (23-28) mmol/L VBG Total CO2 (24-29) mmol/L VBG O2 Saturation (70-75) % VBG Base Excess (0-4) mmol/L Sodium 125 L (137-145) mmol/L Potassium 5.3 H (3.4-5.1) mmol/L Chloride 92 L (98-107) mmol/L Carbon Dioxide 9 L* (22-32) mmol/L BUN 16 (7-17) mg/dL Creatinine 0.71 (0.52-1.04) mg/dL Estimated GFR > 60.0 (>60) mL/min BUN/Creatinine Ratio 22.5 H (6-22) Glucose 1031 H* (70-100) mg/dL Hemoglobin A1c > 14.0 H (4.0-6.0) % Lactate 1.1 (0.7-2.1) mmol/L Calcium 8.9 (8.4-10.2) mg/dL Total Bilirubin 0.6 (0.2-1.3) mg/dL AST 13 L (14-36) IU/L ALT 10 (<35) IU/L Alkaline Phosphatase 177 H (38-126) U/L Total Protein 7.2 (6.3-8.2) g/dL Albumin 4.2 (3.5-5.0) g/dL Globulin 3.0 (1.7-4.1) g/dL Albumin/Globulin Ratio 1.4 (1.0-2.8) Procalcitonin (<0.5) ng/mL Ketones 9.22 H (<0.27) mmol/L Point of Care Testing Glucose POC 500 MDM Narrative Medical decision making narrative: 30-year-old type 1 diabetic presents with ankle pain and no objective findings to support this but she is in diabetic ketoacidosis with pH of 7.286, positive ketones, and an anion gap of 24. There is no obvious inciting injury or infection to explain the DKA today. Most likely explanation is that she simply has not been taking her insulin. She will be admitted to the intensive care unit, hospitalist service with insulin drip. Fluid resuscitation was initiated in the emergency department. She is safe for transfer to the floor Discharge Plan Departure Patient Disposition: Admitted As Inpatient Clinical Impression: Diabetes mellitus type I Qualifiers: Diabetes mellitus complication status: with other specified complication Qualified Code(s): E10.69 - Type 1 diabetes mellitus with other specified complication DKA (diabetic ketoacidoses) Qualifiers: Diabetes mellitus type: type 1 Diabetes mellitus complication detail: without coma Qualified Code(s): E10.10 - Type 1 diabetes mellitus with ketoacidosis without coma Discharge Date/Time: 03/05/20 02:34 Admit Date/Time: 03/05/20 02:04 Admit Provider: Amee Mendez
[2020-03-05 02:39] LABS: COVID19 -Nasal RAPID Negative (Negative)
[2020-03-05] MEDS: SODIUM CHLORIDE 0.45% 1,000 ML 100 ML IV (03:15)
[2020-03-05 03:35] LABS: Hemoglobin A1C% w Est Avg Glu > 14.0 % (4.0-6.0)
[2020-03-05 03:43] LABS: Lactate (Lactic Acid) 2.1 mmol/L (0.7-2.1)
[2020-03-05 03:44] LABS: BUN Creatinine Ratio 23.8 (6-22); Blood Urea Nitrogen 15 mg/dL (7-17); Calcium 8.7 mg/dL (8.4-10.2); Carbon Dioxide 11 mmol/L (22-32); Chloride 106 mmol/L (98-107); Estimated Glomerular Filt Rate > 60.0 mL/min (>60); HEMOLYSIS < 15 (0-50); Phosphorous 3.9 mg/dL (2.5-4.5); Potassium 3.5 mmol/L (3.4-5.1); Salicylate < 1.0 mg/dL (<20); Sodium 136 mmol/L (137-145)
--- NOTE | 2020-03-05 03:47 | PC.ADMIT ---
Addendum entered by Jasmine Olivares R.N. 03/05/20 04:13: CBG 395, anion gap previously at 24 currently at 19. K+ 3.5. [employer] aware. Orders to decrease insulin GTT to 3 units/hour and 10 MEQ Krider. Will repeat BMP/Lytes in 2 hours. Original Note: [email or web address] Admission Note: The patient,Sarabjit Jimenes,30 y/o, was given written information regarding hospital policies, unit procedures and contact persons. Patient's smoking status: Never smoker. Vital Signs - 8 hr 03/04/20 22:39 03/04/20 23:22 03/04/20 23:30 Temperature 97.7 F Pulse Rate 135 H 130 H 141 H Respiratory Rate 18 Blood Pressure 135/87 142/87 H 157/96 H Pulse Oximetry 98 99 97 03/05/20 00:00 03/05/20 00:30 03/05/20 01:00 Temperature Pulse Rate 127 H 123 H 120 H Respiratory Rate 14 12 10 L Blood Pressure 127/86 129/87 135/89 Pulse Oximetry 98 99 99 03/05/20 01:30 03/05/20 02:00 03/05/20 02:32 Temperature Pulse Rate 123 H 124 H 136 H Respiratory Rate 10 L 14 Blood Pressure 121/75 124/71 Pulse Oximetry 96 96 03/05/20 02:38 03/05/20 02:42 03/05/20 03:00 Temperature Pulse Rate 127 H 129 H 120 H Respiratory Rate 18 33 H 13 Blood Pressure 121/67 122/70 113/69 Pulse Oximetry 97 99 03/05/20 03:01 Temperature 99.2 F Pulse Rate 126 H Respiratory Rate 16 Blood Pressure 121/67 Pulse Oximetry 97 Patient arrived from ED via stretcher in NAD. VSS. Insuling GTT infusing at 6.5 units/hour. CBG recheck at 0300 showing >500. Per DKA protocol no change to GTT rate. Lab at bedside for stat blood draw. IVF initiated 1/ NS @ 100mL/hour per orders. Pt c/o 10/29 right ankle pain (chronic). Brace maintained per patient wishes. Hospitalist aware, currently at bedside to andrew. Tele ST - rate 120's. BP stable. Sp02 97% RA. Up to BSC with SBA, steady gait. Voiding without issues a large amount of urine. Home medications reconciled; patient reports taking Amoxicillin for an ear infection. This has been communicated to the hospitalist. Oriented to room, call light and plan of care. Verbalized understanding.
[2020-03-05 03:55] LABS: Glucose 601 mg/dL (70-100)
[2020-03-05] MEDS: POTASSIUM CHLORIDE 10 MEQ in SODIUM CHLORIDE 0.9% 250 ML 130 ML IV (04:37)
[2020-03-05] MEDS: HYDROMORPHONE 2 MG TABLET PO (04:38)
[2020-03-05 05:25] LABS: Reflexed Lactate in 2 Hours Y
[2020-03-05] MEDS: METOCLOPRAMIDE 10 MG/2 ML INJ IV (06:00)
[2020-03-05 06:49] LABS: Bacteria Urine None Seen; WBC Urine None Seen (0-5/HPF)
[2020-03-05 06:50] LABS: Appearance Urine UA CLEAR; Bilirubin Urine UA NEGATIVE (NEGATIVE); Color Urine UA YELLOW; Glucose Urine UA 2+ g/dL (Negative); Ketones Urine UA 2+ (NEGATIVE); Leukocyte Esterase Urine UA NEGATIVE (NEGATIVE); Nitrite Urine UA NEGATIVE (Negative); Occult Blood Urine UA TRACE-INTACT (Negative); Protein Urine UA TRACE (Negative); Urobilinogen Urine UA 0.2 E.U./dL (0.2)
[2020-03-05 06:58] LABS: pH Urine UA 5.5 (4.5-8.0)
[2020-03-05 07:01] LABS: Culture Indicated Urine Cult Not Indicated; RBC Urine 0-1/HPF (0-5/HPF)
[2020-03-05 07:09] LABS: Lactate 2HR (Lactic Acid Rflx) 1.1 mmol/L (0.7-2.1)
[2020-03-05 07:10] LABS: BUN Creatinine Ratio 30.4 (6-22); Blood Urea Nitrogen 14 mg/dL (7-17); Calcium 8.8 mg/dL (8.4-10.2); Carbon Dioxide 18 mmol/L (22-32); Chloride 109 mmol/L (98-107); Estimated Glomerular Filt Rate > 60.0 mL/min (>60); Glucose 191 mg/dL (70-100); HEMOLYSIS < 15 (0-50); Potassium 3.1 mmol/L (3.4-5.1); Sodium 137 mmol/L (137-145)
[2020-03-05] MEDS: DEXTROSE 5%-0.45% NS 1,000 ML 150 ML IV (07:17)
--- NOTE | 2020-03-05 08:21 | PC.NURSE ---
0820-Mother dropped off home Triseba and phone client services manager, Kiki sent to pharmacy for identification.
[2020-03-05] MEDS: POTASSIUM CHLORIDE 20 MEQ TAB 40 MEQ PO (08:51)
[2020-03-05] MEDS: TRESIBA 50 EACH SUBCUT (08:54)
--- NOTE | 2020-03-05 09:13 | PM.HP.1 ---
History of Present Illness History of Present Illness Date Patient Seen: 03/05/20 Chief complaint: RIGHT ANKLE PAIN Narrative: Ms. Sarabjit Jimenes is a 29-year-old female patient with a history significant for poorly controlled type 1 diabetes, frequent admissions for DKA, migraines and irregular menstruation who presents to the ER with complaints of right ankle pain from a fracture she sustained at the age of 14. Patient states that the pain coli maxed yesterday beyond her normal chronic level of discomfort in which she has tried and failed Tylenol Advil and ibuprofen she wears a brace on that ankle for support without improvement site to come to the emergency room. She states that the pain is a chronic sharp pain that worsens with stepping down ?and feels like it wants to crack ?. Patient states that nothing improves the pain but sometimes walking for a period of time it will start to ease. Patient denies any recent injury or trauma. Patient also denies any signs or symptoms of DKA. Patient is relaxed comfortably and conversing with me from her bed in no distress She reports no recent fevers or chills headaches or dizziness, nasal congestion or sore throat. She denies chest pain or palpitations and has no shortness of breath cough or wheezing. She denies abdominal pain and diarrhea. Patient denies numbness or tingling. Patients only complaint of pain is from her ankle. Patient presented to the ER tonight complaining of right ankle pain from a fracture that she sustained as a child. She appears to be tachypneic with Kussmaul breathing, is upset, complaining of abdominal pain and a point of care blood glucose is significantly elevated. Patient History Medical History DKA (diabetic ketoacidoses) (Resolved) History of pyelonephritis (Resolved) Irregular menstrual cycle (Acute) Migraine headache (Chronic) Nephrolithiasis (Resolved) Type 1 diabetes mellitus (Chronic) Surgical History History of ureter stent (Resolved) Hx of local excision of skin lesion (Acute) Status post laser lithotripsy of ureteral calculus (Acute) [place] teeth extracted (Acute) Family & Social History Family History Father In good health Mother Cardiac disease Social History: household members significant other,family Prior Living Arrangements House Safety & Behavioral: Feels Safe in Current Yes Environment Been Physically Hurt or No Threatened By a Person Suicidal Ideation Description None Tobacco & Substance use: Smoking Status Never smoker alcohol intake former alcohol intake frequency holiday/special occasion Substance Use Type does not use Meds Home Medications and Allergies Home Medications Medication Instructions Recorded Confirmed Type glucose 4 gram PO Q15M PRN #30 tab 12/12/18 02/16/20 Rx Glucagon Emergency Kit (human) 1 mg SUBCUT DIRECTED 02/16/19 02/16/20 History insulin degludec 50 unit SUBCUT DAILY 11/21/19 02/16/20 History insulin aspart U-100 [Novolog 7 unit SUBCUT AC 01/03/20 02/16/20 History Flexpen U-100 Insulin] lisinopril 10 mg PO DAILY 02/03/20 02/16/20 History amoxicillin-pot clavulanate 1 tab PO BID 03/05/20 03/05/20 History Allergies Allergy/AdvReac Type Severity Reaction Status Date / Time abdalla [ABDALLA] Allergy Intermediate Hives, Verified 02/16/20 14:27 pruritus iodine [IODINE] Allergy Intermediate rash, itchy Verified 02/16/20 14:27 morphine Allergy Intermediate Difficulty Verified 02/16/20 14:27 Breathing shellfish derived Allergy Intermediate rash Verified 02/16/20 14:27 [SHELLFISH DERIVED] adhesive [ADHESIVE] Allergy Unknown tape Verified 02/16/20 14:27 latex [LATEX] Allergy Unknown Hives Verified 02/16/20 14:27 Review of Systems Review of Systems ROS: Yes All systems reviewed with the patient and are negative except as otherwise documented Exam Vital Signs (past 8 hours): - 03/05/20 01:30 03/05/20 02:00 03/05/20 02:32 Temperature Pulse Rate 123 H 124 H 136 H Respiratory Rate 10 L 14 Blood Pressure 121/75 124/71 Pulse Oximetry 96 96 03/05/20 02:38 03/05/20 02:42 03/05/20 03:00 Temperature Pulse Rate 127 H 129 H 120 H Respiratory Rate 18 33 H 13 Blood Pressure 121/67 122/70 113/69 Pulse Oximetry 97 99 03/05/20 03:01 03/05/20 03:51 03/05/20 04:00 Temperature 99.2 F Pulse Rate 126 H 122 H 118 H Respiratory Rate 16 14 16 Blood Pressure 121/67 113/69 97/61 Pulse Oximetry 97 97 98 03/05/20 04:02 03/05/20 05:00 03/05/20 06:00 Temperature Pulse Rate 124 H 113 H 110 H Respiratory Rate 19 11 L 14 Blood Pressure 105/71 94/56 L 109/56 L Pulse Oximetry 98 97 96 03/05/20 06:35 03/05/20 07:00 03/05/20 08:00 Temperature 97.6 F Pulse Rate 117 H 106 H 109 H Respiratory Rate 18 11 L 19 Blood Pressure 107/58 L Pulse Oximetry 95 95 96 03/05/20 08:50 03/05/20 09:00 Temperature 97.6 F Pulse Rate 114 H 120 H Respiratory Rate 20 28 H Blood Pressure 111/69 Pulse Oximetry 99 100 Oxygen Delivery Method Room Air Oxygen Flow Rate 0 Narrative Exam Narrative: General: Frail, cachectic, anxious, dry mucous membranes with Kussmaul breathing HEENT: mucous membranes, normal sclera with reactive pupils, your on her scalp is beginning to grow back at site of prior abscess Neck: No JVD, supple Respiratory: Lungs are clear to auscultation, no wheezing no rales no rhonchi. Deep, Full and symmetrical air movement consistent with Kussmaul breathing pattern Cardiac: Tachycardic with Regular rate and rhythm no murmurs no bruits Abdomen: Soft, diffusely tender without rebound or guarding, hypoactive bowel tones, no flank pain Skin: Warm and dry, no rashes Neurologic: Grossly neurologically intact with no obvious asymmetries or abnormalities Extremities: No trauma, well perfused. No specific injury, pain on range of motion, erythema or swelling to right ankle (where she is complaining of pain in tenderness) Psych: Dramatic affect of behavior with little to no insight into overall presentation Objective Labs Result Diagrams: 03/04/20 23:53 03/05/20 06:50 Labs: Laboratory Results - last 24 hr 03/04/20 03/04/20 03/04/20 00:14 23:53 23:53 WBC 5.5 RBC 4.44 Hgb 14.5 Hct 44.8 MCV 100.9 H MCH 32.7 MCHC 32.4 RDW 13.7 Plt Count 361 Neut % (Auto) 77.1 H Lymph % (Auto) 15.4 L [place] % (Auto) 6.0 Eos % (Auto) 0.1 L Baso % (Auto) 1.4 Neut # (Auto) 4300 Lymph # (Auto) 900 L [place] # (Auto) 300 Eos # (Auto) 0 Baso # (Auto) 100 VBG pH 7.29 L VBG pCO2 20.9 L VBG pO2 41 VBG HCO3 10 L VBG Total CO2 11 L VBG O2 Saturation 72 VBG Base Excess -17.0 L Sodium Potassium Chloride Carbon Dioxide BUN Creatinine Estimated GFR BUN/Creatinine Ratio Glucose Hemoglobin A1c Lactate Calcium Phosphorus Total Bilirubin AST ALT Alkaline Phosphatase Total Protein Albumin Globulin Albumin/Globulin Ratio Procalcitonin < 0.05 Urine Color Urine Appearance Urine pH Ur Specific [place] Urine Protein Urine Glucose (UA) Urine Ketones Urine Occult Blood Urine Nitrate Urine Bilirubin Urine Urobilinogen Ur Leukocyte Esterase Urine RBC Urine WBC Urine Bacteria Ur Culture Indicated? Nasal Screen MRSA (PCR) Salicylates Ketones COVID-19 PCR 03/04/20 03/04/20 03/04/20 23:53 23:53 23:53 WBC RBC Hgb Hct MCV MCH MCHC RDW Plt Count Neut % (Auto) Lymph % (Auto) [place] % (Auto) Eos % (Auto) Baso % (Auto) Neut # (Auto) Lymph # (Auto) [place] # (Auto) Eos # (Auto) Baso # (Auto) VBG pH VBG pCO2 VBG pO2 VBG HCO3 VBG Total CO2 VBG O2 Saturation VBG Base Excess Sodium 125 L Potassium 5.3 H Chloride 92 L Carbon Dioxide 9 L* BUN 16 Creatinine 0.71 Estimated GFR > 60.0 BUN/Creatinine Ratio 22.5 H Glucose 1031 H* Hemoglobin A1c > 14.0 H Lactate 1.1 Calcium 8.9 Phosphorus Total Bilirubin 0.6 AST 13 L ALT 10 Alkaline Phosphatase 177 H Total Protein 7.2 Albumin 4.2 Globulin 3.0 Albumin/Globulin Ratio 1.4 Procalcitonin Urine Color Urine Appearance Urine pH Ur Specific [place] Urine Protein Urine Glucose (UA) Urine Ketones Urine Occult Blood Urine Nitrate Urine Bilirubin Urine Urobilinogen Ur Leukocyte Esterase Urine RBC Urine WBC Urine Bacteria Ur Culture Indicated? Nasal Screen MRSA (PCR) Salicylates Ketones 9.22 H COVID-19 PCR 1103/05/20 03/05/20 02:16 03:00 03:15 WBC RBC Hgb Hct MCV MCH MCHC RDW Plt Count Neut % (Auto) Lymph % (Auto) [place] % (Auto) Eos % (Auto) Baso % (Auto) Neut # (Auto) Lymph # (Auto) [place] # (Auto) Eos # (Auto) Baso # (Auto) VBG pH VBG pCO2 VBG pO2 VBG HCO3 VBG Total CO2 VBG O2 Saturation VBG Base Excess Sodium 136 L D Potassium 3.5 D Chloride 106 Carbon Dioxide 11 L BUN 15 Creatinine 0.63 Estimated GFR > 60.0 BUN/Creatinine Ratio 23.8 H Glucose 601 H* Hemoglobin A1c Lactate Calcium 8.7 Phosphorus 3.9 Total Bilirubin AST ALT Alkaline Phosphatase Total Protein Albumin Globulin Albumin/Globulin Ratio Procalcitonin Urine Color Urine Appearance Urine pH Ur Specific [place] Urine Protein Urine Glucose (UA) Urine Ketones Urine Occult Blood Urine Nitrate Urine Bilirubin Urine Urobilinogen Ur Leukocyte Esterase Urine RBC Urine WBC Urine Bacteria Ur Culture Indicated? Nasal Screen MRSA (PCR) Negative for mrsa Salicylates < 1.0 Ketones COVID-19 PCR Negative 03/05/20 03/05/20 03/05/20 03:15 06:41 06:50 WBC RBC Hgb Hct MCV MCH MCHC RDW Plt Count Neut % (Auto) Lymph % (Auto) [place] % (Auto) Eos % (Auto) Baso % (Auto) Neut # (Auto) Lymph # (Auto) [place] # (Auto) Eos # (Auto) Baso # (Auto) VBG pH VBG pCO2 VBG pO2 VBG HCO3 VBG Total CO2 VBG O2 Saturation VBG Base Excess Sodium 137 Potassium 3.1 L Chloride 109 H Carbon Dioxide 18 L BUN 14 Creatinine 0.46 L Estimated GFR > 60.0 BUN/Creatinine Ratio 30.4 H Glucose 191 H D Hemoglobin A1c Lactate 2.1 Calcium 8.8 Phosphorus Total Bilirubin AST ALT Alkaline Phosphatase Total Protein Albumin Globulin Albumin/Globulin Ratio Procalcitonin Urine Color Yellow Urine Appearance Clear Urine pH 5.5 Ur Specific [place] 1.010 Urine Protein Trace H Urine Glucose (UA) 2+ H Urine Ketones 2+ H Urine Occult Blood Trace-intact Urine Nitrate Negative Urine Bilirubin Negative Urine Urobilinogen 0.2 Ur Leukocyte Esterase Negative Urine RBC 0-1/hpf Urine WBC None seen Urine Bacteria None seen Ur Culture Indicated? Cult not indicated Nasal Screen MRSA (PCR) Salicylates Ketones COVID-19 PCR 03/05/20 06:50 WBC RBC Hgb Hct MCV MCH MCHC RDW Plt Count Neut % (Auto) Lymph % (Auto) [place] % (Auto) Eos % (Auto) Baso % (Auto) Neut # (Auto) Lymph # (Auto) [place] # (Auto) Eos # (Auto) Baso # (Auto) VBG pH VBG pCO2 VBG pO2 VBG HCO3 VBG Total CO2 VBG O2 Saturation VBG Base Excess Sodium Potassium Chloride Carbon Dioxide BUN Creatinine Estimated GFR BUN/Creatinine Ratio Glucose Hemoglobin A1c Lactate 1.1 Calcium Phosphorus Total Bilirubin AST ALT Alkaline Phosphatase Total Protein Albumin Globulin Albumin/Globulin Ratio Procalcitonin Urine Color Urine Appearance Urine pH Ur Specific [place] Urine Protein Urine Glucose (UA) Urine Ketones Urine Occult Blood Urine Nitrate Urine Bilirubin Urine Urobilinogen Ur Leukocyte Esterase Urine RBC Urine WBC Urine Bacteria Ur Culture Indicated? Nasal Screen MRSA (PCR) Salicylates Ketones COVID-19 PCR Assessment & Plan Assessment & Plan narrative: : 1. Acute diabetic ketoacidosis, in uncontrolled diabetes mellitus type 1, present on admission, active. -Hemoglobin A1c >14% since June of 2018 indicative of poor glycemic control likely multifactorial. -patient takes Tresiba 50 mg at 11 a.m., and 7 units of prandial insulin. -Initial blood glucose 1051, VBG pH 7.29, HC03 10, base excess --17.0. Anion gap is 24. COVID-19 negative. WBC negative, procalcitonin negative . -patient given fluid bolus and was started on insulin drip in the emergency department. Will check electrolytes including BMP, magnesium and phos every 4 hours. -when blood sugars less than 200 will start D5-0.45% normal saline at 150 cc/hour and continue until anion gap closes and acidosis improves. -ordered Reglan 10 mg IV every 8 hours as needed for nausea. -requested dietitian consult she is followed at [facility] clinic for endocrinology. She has a new PCP Dr. Martines 2. Neurogenic bladder secondary to autonomic nerve dysfunction secondary to diabetes, chronic, present on admission, stable -patient reports no burning, strong urine smell or hematuria in the setting of neurogenic bladder. -urinalysis is positive for protein, glucose and ketones but negative for nitrites, leukocyte esterase, wbc's or bacteria. VTE prophylaxis, bilateral SCDs, enoxaparin IV fluid: normal saline at 150 cc/hour, when blood sugar less than 200 will change D5 1/2 normal saline at 150 cc per Diet: NPO Code status: FULL CODE, her surrogate decision maker is her nina Gonzales. The patient is admitted as an inpatient to the ICU for with diabetic ketoacidosis on insulin infusion requiring close monitoring and frequent interventions prevent complications or adverse events.. Critical care time: 45 minutes with over 50% of the time spent in direct [id number] wit Scores GCS Alex coma scale eye opening: Spontaneous Alex coma scale verbal response: Orientated [place] coma scale motor response: Obey commands Alex coma scale total score: 15 Quality VTE Deep Vein Thrombosis/Pulmonary Embolism Present on Admission: No
--- NOTE | 2020-03-05 12:22 | PC.NURSE ---
Addendum entered by Federico Portillo R.N. 03/05/20 12:53: Pt escorted to POV via w/c in no distress. All belongings with pt and s/o. Dc time 1245. Original Note: Pt will d/c home per MD order. Provided pt education re: DKA, insulin reg. Pt verbalizes understanding. Has an appt with credit collection specialist already scheduled. Pt states she is going to her Mom's house upon discharge and has humalog insulin there. She states she will cover her BG at that time. She is given her tresiba pen. She states she will dress herself after lunch and let staff know when she is ready to leave. PIV removed with cath tip intact. groundwater monitoring technician removed.
--- NOTE | 2020-03-05 15:27 | CM.IDA ---
Initial DCP Assessment Note Patient is a 30 yo female, resident of [place]. Patient well known to this ONCOLOGY REP team from multiple prior admissions for DKA and non healing head ulcer. PCP: [facility] Payer: [employer] Reviewed chart. Patient last seen by ONCOLOGY REP team end of January, ONCOLOGY REP assisted in securing an appt to establish PCP through [facility], appt arranged for Feb 23. Asked patient if she had attended her appt to establish w/PCP? Patient states yes. Patient has an appt w/her field return repairer this upcoming week according to Dr Arita. Dr Arita asks if patient would qualify for HH RN, d/t multiple readmissions. This ONCOLOGY REP asked patient if she would consider visiting RN if she qualifies and [facility]ENE pays ? Patient states if it was by phone it would be okay, but I don't want anyone visiting my house, I have two pit bulls. Dr Arita, nursing staff and this ONCOLOGY REP suggest tox screen be done upon every admission to r/o ongoing poly substance use ..patient continues to readmit largely d/t non-compliance in insulin management. P: DC home w/fiance today, via pov, close outpatient f/u recommended JW
[2020-03-07 15:08] LABS: Osmolality, Serum 330 mOsmol/kg (275-295)
[2020-04-11 16:52] LABS: HCO3 VBG 10 mmol/L (23-28); Oxygen Saturation VBG 72 % (70-75); PCO2 VBG 20.9 mmHg (45-50); PO2 VBG 41 mmHg (35-45); Total CO2 VBG 11 mmol/L (24-29); pH VBG 7.29 (7.33-7.43)
== END 2020-03-05 12:45 | disposition home or self-care (01) | DRG 639 ==
LOC: ED 03-05 01:41 → AC 03-05 02:05 → ICU 03-05 06:11 → AC 03-08 13:38 → ICU 03-08 13:38
PROVIDERS: Admitting Provider Nurse Practitioner Family; Emergency Provider Emergency Medicine; Referring Provider Emergency Medicine; Visit Provider Nurse Practitioner Family
DX: E10.10 Type 1 diabetes mellitus with ketoacidosis without coma (principal); M25.571 Pain in right ankle and joints of right foot; E10.43 Type 1 diabetes mellitus with diabetic autonomic (poly)neuropathy; N31.8 Other neuromuscular dysfunction of bladder; Z11.59 Encounter for screening for other viral diseases
CPT/HCPCS: 36415; 71045; 73610; 80048; 80053; 80329; 81001; 82009; 82805; 82962; 83036; 83605; 83930; 84100; 84145; 85025; 87040; 87635; 87797; 93005; 96361; 96365; 96375; 99284; G0480; J1170; J2405; J2765; J3480; J7050

== ENCOUNTER 2020-04-23 19:43 | Emergency (ER) | payer OTHER, MEDICAID, SELFPAY ==
[2020-03-05 02:05] VITALS: BMI 18.1
[2020-04-23] VITALS (8 sets, daily range): BP systolic 149–185; BP diastolic 101–120; PULSE 104–125; RESP 9–20; TEMP 36.2; O2SAT 98–100; BMI 20.7
--- NOTE | 2020-04-23 19:55 | ED_ITS ---
HPI - General Adult General Chief complaint: Urogenital-Female Stated complaint: kidney/back pain right leg pain Time Seen by Provider: 04/23/20 19:48 Source: patient Mode of arrival: Wheelchair Limitations: no limitations History of Present Illness HPI narrative: Patient is a 22-year-old female. Is a insulin-dependent diabetic. Well known to this emergency department and to myself. Has had multiple issues with DKA in the past. Two weeks ago had a right foot surgery done had a outside facility. She arrives in a walking boot. Has had 2 follow- up visits with her operative surgeon the since the surgery. She states the 1st 1 was a checkup in the 2nd 1 she had stitches removed. She states she is able to walk on her right foot however has to walk on the ball of her foot secondary to pain. Was discharged from the procedure with oxycodone however she states that she has run out of these medications. She has tried Tylenol without any improvement. She has been taking all of her medications as directed. He states the pain in her right foot is radiating up into her back. She denies any fevers. She has a follow-up next week with the operative provider. Related Data Home Medications Medication Instructions Recorded Confirmed Glucagon Emergency Kit (human) 1 mg SUBCUT DIRECTED 02/16/19 03/05/20 insulin degludec 50 unit SUBCUT DAILY 11/21/19 03/05/20 insulin aspart U-100 [Novolog 7 unit SUBCUT AC 01/03/20 03/05/20 Flexpen U-100 Insulin] lisinopril 10 mg PO DAILY 02/03/20 03/05/20 amoxicillin-pot clavulanate 1 tab PO BID 03/05/20 03/05/20 Previous Rx's Medication Instructions Recorded glucose 4 gram PO Q15M PRN #30 tab 12/12/18 Allergies Allergy/AdvReac Type Severity Reaction Status Date / Time arredondo [ARREDONDO] Allergy Intermediate Hives, Verified 04/23/20 19:52 pruritus iodine [IODINE] Allergy Intermediate rash, itchy Verified 04/23/20 19:52 morphine Allergy Intermediate Difficulty Verified 04/23/20 19:52 Breathing shellfish derived Allergy Intermediate rash Verified 04/23/20 19:52 [SHELLFISH DERIVED] adhesive [ADHESIVE] Allergy Unknown tape Verified 04/23/20 19:52 latex [LATEX] Allergy Unknown Hives Verified 04/23/20 19:52 Review of Systems Constitutional Constitutional: Denies fever(s) Cardiovascular Cardiovascular: Denies chest pain and Denies dyspnea Respiratory Respiratory: Denies dyspnea Musculoskeletal Comments: Right foot pain Integumentary/Breasts Skin/Breast: Denies lesions and Denies rash Neurologic Neurologic: Denies confusion Psychiatric Psychiatric: Denies confusion Hematologic/Lymphatic Hematologic/Lymphatic: Denies easy bleeding and Denies easy bruising Allergic/Immunologic Allergic/Immunologic: Denies urticaria Patient History Medical History DKA (diabetic ketoacidoses) History of pyelonephritis Irregular menstrual cycle Migraine headache Nephrolithiasis Type 1 diabetes mellitus Surgical History History of ureter stent Hx of local excision of skin lesion Status post laser lithotripsy of ureteral calculus [place] teeth extracted Family History Father In good health Mother Cardiac disease Social History details: Engaged household members: significant other and family Smoking Status: Never smoker alcohol intake: former Smoking Status: Never smoker alcohol intake frequency: holidays/special occasions only Substance Use Type: does not use Exam Initial Vital Signs Initial Vital Signs: Vital Signs Pulse Rate 112 H 04/23/20 20:00 Respiratory Rate 16 04/23/20 20:00 Blood Pressure 185/117 H 04/23/20 20:00 Pulse Oximetry 100 04/23/20 20:00 Const General: No cooperative and No ill appearing [facility] Head: normal to inspection Resp Effort & Inspection: normal respiratory effort Cardio Rate: tachycardic Pulses: dorsalis pedis present on the right Skin Other: Patient has 2 surgical incisions on her right foot. The medial 1 is just distal to the medial malleolus. Lateral 1 is distal to the lateral malleolus. There is some crusting around the area however no erythema. No dehiscence. Extrem Other: Patient seems to have tenderness to palpation throughout her ankle. Her lower leg is soft. Compartments are soft. Psych Appearance: grossly normal and well kempt Course Orders Ordered: ED Orders 04/23/20 20:28 Venous Blood Gas Stat 04/23/20 20:33 Complete Blood Count AUTO DIFF Stat Comprehensive Metabolic Panel Stat HCG Quantitative /Beta subunit Stat Ketones (Beta-Hydroxybutyrate) Stat Lactate (Lactic Acid) Stat Lipase Stat Magnesium Stat Phosphorous Stat Procalcitonin Stat Discontinued Medications Hydromorphone HCl (Hydromorphone 1 Mg Inj) 1 mg IM NOW ONE Stop: 04/23/20 21:33 Last Admin: 04/23/20 21:43 Dose: 1 mg Documented by: Insulin Human Regular (Insulin Regular 100 Unit/Ml 3 Ml Vial) 8 unit SUBCUT NOW ONE Stop: 04/23/20 21:33 Last Admin: 04/23/20 21:43 Dose: 8 unit Documented by: Oxycodone/Acetaminophen (Oxycodone/Apap 5/325 Prepack) 1 bottle MISC SEEINSTR ONE Stop: 04/23/20 21:35 Last Admin: 04/23/20 21:48 Dose: 1 bottle Documented by: Vital Signs Vital signs: Vital Signs - 8 hr 04/23/20 20:00 04/23/20 20:07 04/23/20 20:16 Temperature 97.2 F L Pulse Rate 112 H 109 H Respiratory Rate 16 9 L Blood Pressure 185/117 H Pulse Oximetry 100 100 04/23/20 20:30 04/23/20 20:31 Temperature Pulse Rate 107 H 105 H Respiratory Rate 12 10 L Blood Pressure 168/101 H Pulse Oximetry Medical Decision Making Medical Records Medical records reviewed: Yes I reviewed the patient's medical records. Lab Data Lab results reviewed: Yes I reviewed the patient's lab results. Result diagrams: 04/23/20 20:33 04/23/20 20:33 Labs: Lab Results 04/23/20 04/23/20 04/23/20 Range/Units 20:28 20:33 20:33 WBC 4.3 L (4.5-11.0) X10^3/uL RBC 4.42 (4.0-5.2) X10^6/uL Hgb 13.7 (12.0-16.0) g/dL Hct 42.4 (36-46) % MCV 95.9 (80-100) fL MCH 31.0 (26-34) PG MCHC 32.3 (30-36) % RDW 11.8 (11.6-14.8) % Plt Count 276 (150-400) X10^3/uL Neut % (Auto) 59.1 (50-75) % Lymph % (Auto) 27.0 (25-40) % [place] % (Auto) 11.2 (3-14) % Eos % (Auto) 1.4 L (2-4) % Baso % (Auto) 1.3 (0-2) % Neut # (Auto) 2500 (4353-1293) /uL Lymph # (Auto) 1200 (6203-3585) /uL [place] # (Auto) 500 (0-900) /uL Eos # (Auto) 100 (0-450) /uL Baso # (Auto) 100 (0-100) /uL VBG pH 7.40 (7.33-7.43) VBG pCO2 42.5 L (45-50) mmHg VBG pO2 19 L (35-45) mmHg VBG HCO3 26 (23-28) mmol/L VBG Total CO2 28 (24-29) mmol/L VBG O2 Saturation 30 L (70-75) % VBG Base Excess 1.0 (0-4) mmol/L Sodium 126 L (137-145) mmol/L Potassium 5.4 H (3.4-5.1) mmol/L Chloride 92 L (98-107) mmol/L Carbon Dioxide 27 (22-32) mmol/L BUN 16 (7-17) mg/dL Creatinine 0.82 (0.52-1.04) mg/dL Estimated GFR > 60.0 (>60) mL/min BUN/Creatinine Ratio 19.5 (6-22) Glucose 935 H* (70-100) mg/dL Lactate (0.7-2.1) mmol/L Calcium 9.4 (8.4-10.2) mg/dL Phosphorus (2.5-4.5) mg/dL Magnesium (1.6-2.3) mg/dL Total Bilirubin 0.5 (0.2-1.3) mg/dL AST 23 (14-36) IU/L ALT 14 (<35) IU/L Alkaline Phosphatase 278 H (38-126) U/L Total Protein 7.4 (6.3-8.2) g/dL Albumin 4.3 (3.5-5.0) g/dL Globulin 3.1 (1.7-4.1) g/dL Albumin/Globulin Ratio 1.4 (1.0-2.8) Lipase (23-300) U/L Procalcitonin (<0.5) ng/mL HCG, Quant mIU/mL Ketones 1.03 H (<0.27) mmol/L 04/23/20 04/23/20 04/23/20 Range/Units 20:33 20:33 20:33 WBC (4.5-11.0) X10^3/uL RBC (4.0-5.2) X10^6/uL Hgb (12.0-16.0) g/dL Hct (36-46) % MCV (80-100) fL MCH (26-34) PG MCHC (30-36) % RDW (11.6-14.8) % Plt Count (150-400) X10^3/uL Neut % (Auto) (50-75) % Lymph % (Auto) (25-40) % [place] % (Auto) (3-14) % Eos % (Auto) (2-4) % Baso % (Auto) (0-2) % Neut # (Auto) (3019-7669) /uL Lymph # (Auto) (8099-8291) /uL [place] # (Auto) (0-900) /uL Eos # (Auto) (0-450) /uL Baso # (Auto) (0-100) /uL VBG pH (7.33-7.43) VBG pCO2 (45-50) mmHg VBG pO2 (35-45) mmHg VBG HCO3 (23-28) mmol/L VBG Total CO2 (24-29) mmol/L VBG O2 Saturation (70-75) % VBG Base Excess (0-4) mmol/L Sodium (137-145) mmol/L Potassium (3.4-5.1) mmol/L Chloride (98-107) mmol/L Carbon Dioxide (22-32) mmol/L BUN (7-17) mg/dL Creatinine (0.52-1.04) mg/dL Estimated GFR (>60) mL/min BUN/Creatinine Ratio (6-22) Glucose (70-100) mg/dL Lactate 1.3 (0.7-2.1) mmol/L Calcium (8.4-10.2) mg/dL Phosphorus 4.5 (2.5-4.5) mg/dL Magnesium 2.0 (1.6-2.3) mg/dL Total Bilirubin (0.2-1.3) mg/dL AST (14-36) IU/L ALT (<35) IU/L Alkaline Phosphatase (38-126) U/L Total Protein (6.3-8.2) g/dL Albumin (3.5-5.0) g/dL Globulin (1.7-4.1) g/dL Albumin/Globulin Ratio (1.0-2.8) Lipase 317 H (23-300) U/L Procalcitonin < 0.05 (<0.5) ng/mL HCG, Quant mIU/mL Ketones (<0.27) mmol/L 04/23/20 Range/Units 20:33 WBC (4.5-11.0) X10^3/uL RBC (4.0-5.2) X10^6/uL Hgb (12.0-16.0) g/dL Hct (36-46) % MCV (80-100) fL MCH (26-34) PG MCHC (30-36) % RDW (11.6-14.8) % Plt Count (150-400) X10^3/uL Neut % (Auto) (50-75) % Lymph % (Auto) (25-40) % [place] % (Auto) (3-14) % Eos % (Auto) (2-4) % Baso % (Auto) (0-2) % Neut # (Auto) (6160-8143) /uL Lymph # (Auto) (6599-3534) /uL [place] # (Auto) (0-900) /uL Eos # (Auto) (0-450) /uL Baso # (Auto) (0-100) /uL VBG pH (7.33-7.43) VBG pCO2 (45-50) mmHg VBG pO2 (35-45) mmHg VBG HCO3 (23-28) mmol/L VBG Total CO2 (24-29) mmol/L VBG O2 Saturation (70-75) % VBG Base Excess (0-4) mmol/L Sodium (137-145) mmol/L Potassium (3.4-5.1) mmol/L Chloride (98-107) mmol/L Carbon Dioxide (22-32) mmol/L BUN (7-17) mg/dL Creatinine (0.52-1.04) mg/dL Estimated GFR (>60) mL/min BUN/Creatinine Ratio (6-22) Glucose (70-100) mg/dL Lactate (0.7-2.1) mmol/L Calcium (8.4-10.2) mg/dL Phosphorus (2.5-4.5) mg/dL Magnesium (1.6-2.3) mg/dL Total Bilirubin (0.2-1.3) mg/dL AST (14-36) IU/L ALT (<35) IU/L Alkaline Phosphatase (38-126) U/L Total Protein (6.3-8.2) g/dL Albumin (3.5-5.0) g/dL Globulin (1.7-4.1) g/dL Albumin/Globulin Ratio (1.0-2.8) Lipase (23-300) U/L Procalcitonin (<0.5) ng/mL HCG, Quant < 2.4 mIU/mL Ketones (<0.27) mmol/L Point of Care Testing Test Results Positive Glucose POC 500 Urine Dip Bedside Urine Glucose 1000 mg/dl Bedside Urine Bilirubin - Negative Bedside Urine Ketone - Negative Urine Specific [place] 1.010 Bedside Urine Occult Blood +/- Bedside Urine pH 6.0 Bedside Urine Protein + 30 Bedside Urine Urobilinogen - Negative Bedside Urine Nitrite - Negative Bedside Urine Leukocytes - Negative Esterase Point of care testing: Point of Care Testing Test Results Positive Glucose POC 500 Urine Dip Bedside Urine Glucose 1000 mg/dl Bedside Urine Bilirubin - Negative Bedside Urine Ketone - Negative Urine Specific [place] 1.010 Bedside Urine Occult Blood +/- Bedside Urine pH 6.0 Bedside Urine Protein + 30 Bedside Urine Urobilinogen - Negative Bedside Urine Nitrite - Negative Bedside Urine Leukocytes - Negative Esterase [facility] Narrative Medical decision making narrative: Patient has no leukocytosis. Negative procalcitonin. Negative lactate. And afebrile Her surgical incisions look well. I feel that there is low concern for infection. Low concern for compartment syndrome. She is hyperglycemic however is not acidotic. PH 7.4. Has an anion gap of 7. Corrected sodium is 139 given her elevated glucose. Patient states she has been taking her insulin. I asked what she would do at home with her blood sugar was that this elevated. She states that her monitor home does not go this high. I asked her which she would do if her glucose at home was greater than 500. She states she would take 8 units of insulin and recheck in 2 hours and repeat if needed. I will give patient her 8 units of insulin here in the ER. Patient is tachycardic however I feel that this is secondary to the discomfort that she is in and probably a certain level of dehydration given her elevated glucose and her increased urine output. She is tolerating oral intake. I feel that given the fact that she can drink without vomiting that she should increase her fluid intake by mouth. Feel there is not an emergent indication to admit her to the hospital. Feel there is not an emergent indication to consult Orthopedics. Informed her that she needed to talk with her operative provider about refilling pain medication. She was given 1 dose here in the emergency department and was sent home with a prepack of 4 tablets. She was instructed to check her blood sugar at home and re-dose her insulin per her home sliding scale. She had a faintly positive hCG on the point of care test. Her hCG quant was negative. Discharge Plan Departure Patient Disposition: Home Clinical Impression: Post-operative pain, Hyperglycemia Instructions: DI for Hyperglycemia -- Adult, DI for Postoperative Pain Activity Restrictions/Additional Instructions: Your blood sugar was elevated. You were given 8 units of regular insulin. I recommend that you recheck your blood sugar in 2 hours and re-dose yourself by your sliding scale at home. Be sure to increase your fluid intake as someone who has elevated blood sugars like which you had here in the emergency departm ent can become dehydrated. The surgical incisions look well. Your exam and labs are not concerning for an infection today. Be sure to follow all of the postoperative instructions given to you by your organ tuner electronic. Keep all of your scheduled medical appointments. Unfortunately this is a situation where any further pain management needs to be provided by your operative surgeon. Return to the emergency department for any new symptoms Prescriptions: No Action glucose 4 gram tablet,chewable 4 gram PO Q15M PRN (Reason: hypoglycemia) Qty: 30 RF: 0 Glucagon Emergency Kit (human) 1 mg recon soln 1 mg subcut DIRECTED RF: 0 insulin degludec 200 unit/mL (3 mL) Insulin Pen 50 unit SUBCUT DAILY RF: 0 insulin aspart U-100 [Novolog Flexpen U-100 Insulin] 100 unit/mL (3 mL) insulin pen 7 unit SUBCUT AC RF: 0 lisinopril 10 mg tablet 10 mg PO DAILY RF: 0 amoxicillin-pot clavulanate 875-125 mg tablet 1 tab PO BID RF: 0
[2020-04-23 20:41] LABS: PCO2 VBG 42.5 mmHg (45-50)
[2020-04-23 20:42] LABS: HCO3 VBG 26 mmol/L (23-28); Oxygen Saturation VBG 30 % (70-75); PO2 VBG 19 mmHg (35-45); Total CO2 VBG 28 mmol/L (24-29)
--- NOTE | 2020-04-23 20:42 | PC.NURSE ---
Pt is historically a difficult IV start and no veins easily visible on examination. Lab phoned to bedside for blood draw, bloods sent to lab for analyis and VBG completed by RT. Pt updated to plan of care. After hours PICC services en route for line placement, ETA [id number].
[2020-04-23 20:46] LABS: Add Manual Diff / Slide Review NO; Basophils Absolute Auto 100 /uL (0-100); Basophils Percent Auto 1.3 % (0-2); Eosinophils Absolute Auto 100 /uL (0-450); Eosinophils Percent Auto 1.4 % (2-4); Hematocrit 42.4 % (36-46); Hemoglobin 13.7 g/dL (12.0-16.0); Lymphocytes Absolute Auto 1200 /uL (1100-4500); Mean Corpuscular HGB Conc 32.3 % (30-36); Mean Corpuscular Volume 95.9 fL (80-100); Monocytes Absolute Auto 500 /uL (0-900); Monocytes Percent Auto 11.2 % (3-14); Neutrophils Absolute Auto 2500 /uL (1500-7000); Neutrophils Percent Auto 59.1 % (50-75); Platelet Count 276 X10^3/uL (150-400); Red Blood Cell Count 4.42 X10^6/uL (4.0-5.2); Red Cell Distribution Width 11.8 % (11.6-14.8); White Blood Cell Count 4.3 X10^3/uL (4.5-11.0)
[2020-04-23 20:54] LABS: Lactate (Lactic Acid) 1.3 mmol/L (0.7-2.1)
[2020-04-23 20:57] LABS: Alanine Aminotransferase 14 IU/L (<35); Albumin 4.3 g/dL (3.5-5.0); Albumin Globulin Ratio 1.4 (1.0-2.8); Alkaline Phosphatase 278 U/L (38-126); Aspartate Aminotransferase 23 IU/L (14-36); BUN Creatinine Ratio 19.5 (6-22); Bilirubin Total 0.5 mg/dL (0.2-1.3); Blood Urea Nitrogen 16 mg/dL (7-17); Calcium 9.4 mg/dL (8.4-10.2); Carbon Dioxide 27 mmol/L (22-32); Chloride 92 mmol/L (98-107); Estimated Glomerular Filt Rate > 60.0 mL/min (>60); Globulin 3.1 g/dL (1.7-4.1); HEMOLYSIS 15 (0-50); Sodium 126 mmol/L (137-145); Total Protein 7.4 g/dL (6.3-8.2)
[2020-04-23 21:00] LABS: Ketones (Beta-Hydroxybutyrate) 1.03 mmol/L (<0.27)
[2020-04-23 21:03] LABS: Potassium 5.4 mmol/L (3.4-5.1)
[2020-04-23 21:06] LABS: Lipase 317 U/L (23-300); Phosphorous 4.5 mg/dL (2.5-4.5)
[2020-04-23 21:09] LABS: Glucose 935 mg/dL (70-100)
[2020-04-23 21:23] LABS: HCG Quantitative /Beta subunit < 2.4 mIU/mL
[2020-04-23 21:29] LABS: Procalcitonin < 0.05 ng/mL (<0.5)
--- NOTE | 2020-04-23 21:40 | PC.NURSE ---
[facility] PICC placement cancelled per verbal order from Dr Peters, PICC nurse notified by phone.
[2020-04-23] MEDS: HYDROMORPHONE 1 MG INJ IM (21:43)
[2020-04-23] MEDS: INSULIN REGULAR 100 UNIT/ML 3 ML VIAL 8 UNIT SUBCUT (21:43)
[2020-04-23] MEDS: OXYCODONE/APAP 5/325 PREPACK 1 BOTTLE MISC (21:48)
== END 2020-04-23 20:14 | disposition home or self-care (01) ==
PROVIDERS: Emergency Provider Emergency Medicine
DX: G89.18 Other acute postprocedural pain (principal); M79.671 Pain in right foot; E10.65 Type 1 diabetes mellitus with hyperglycemia; Z79.4 Long term (current) use of insulin; E10.10 Type 1 diabetes mellitus with ketoacidosis without coma; R00.0 Tachycardia, unspecified
CPT/HCPCS: 36415; 80053; 81003; 81025; 82009; 82805; 82962; 83605; 83690; 83735; 84100; 84145; 84702; 85025; 96372; 99283; J1170

== ENCOUNTER 2020-05-03 09:29 | Emergency (ER) | payer OTHER, MEDICAID, SELFPAY ==
[2020-03-05 02:05] VITALS: BMI 18.1
[2020-05-03] VITALS (12 sets, daily range): BP systolic 140–183; BP diastolic 100–113; PULSE 100–131; RESP 17; TEMP 36.8; O2SAT 96–100; BMI 18.8
[2020-05-03 09:55] LABS: Add Manual Diff / Slide Review NO; Basophils Absolute Auto 100 /uL (0-100); Basophils Percent Auto 1.2 % (0-2); Eosinophils Absolute Auto 100 /uL (0-450); Eosinophils Percent Auto 0.9 % (2-4); Hematocrit 41.4 % (36-46); Hemoglobin 13.9 g/dL (12.0-16.0); INR 0.8 (0.9-1.3); Lymphocytes Absolute Auto 1600 /uL (1100-4500); Lymphocytes Percent Auto 25.9 % (25-40); Mean Corpuscular HGB Conc 33.6 % (30-36); Mean Corpuscular Hemoglobin 31.1 PG (26-34); Mean Corpuscular Volume 92.5 fL (80-100); Monocytes Absolute Auto 500 /uL (0-900); Monocytes Percent Auto 7.5 % (3-14); Neutrophils Absolute Auto 3900 /uL (1500-7000); Neutrophils Percent Auto 64.5 % (50-75); Platelet Count 439 X10^3/uL (150-400); Prothrombin Time 9.7 SECONDS (10.1-12.7); Red Blood Cell Count 4.47 X10^6/uL (4.0-5.2); Red Cell Distribution Width 12.6 % (11.6-14.8); White Blood Cell Count 6.1 X10^3/uL (4.5-11.0)
[2020-05-03 09:58] LABS: PTT Partial Thromboplastin Tim 30 SECONDS (26.4-36.2)
[2020-05-03] MEDS: SODIUM CHLORIDE 0.9% 1,000 ML 1000 ML IV ×2 (09:59→11:11)
[2020-05-03 10:01] LABS: Alanine Aminotransferase 14 IU/L (<35); Albumin 4.2 g/dL (3.5-5.0); Albumin Globulin Ratio 1.6 (1.0-2.8); Alkaline Phosphatase 190 U/L (38-126); Aspartate Aminotransferase 19 IU/L (14-36); BUN Creatinine Ratio 44.4 (6-22); Bilirubin Total 0.3 mg/dL (0.2-1.3); Blood Urea Nitrogen 20 mg/dL (7-17); Carbon Dioxide 24 mmol/L (22-32); Chloride 92 mmol/L (98-107); Estimated Glomerular Filt Rate > 60.0 mL/min (>60); Globulin 2.7 g/dL (1.7-4.1); HEMOLYSIS < 15 (0-50); Lipase 221 U/L (23-300); Potassium 5.1 mmol/L (3.4-5.1); Sodium 124 mmol/L (137-145); Total Protein 6.9 g/dL (6.3-8.2)
[2020-05-03 10:07] LABS: PCO2 VBG 34.2 mmHg (45-50); PO2 VBG 60 mmHg (35-45); pH VBG 7.46 (7.33-7.43)
[2020-05-03 10:08] LABS: HCO3 VBG 24 mmol/L (23-28); Total CO2 VBG 25 mmol/L (24-29)
[2020-05-03 10:08] LABS: Glucose 713 mg/dL (70-100)
[2020-05-03 10:09] LABS: Oxygen Saturation VBG 92 % (70-75)
[2020-05-03] MEDS: methylPREDNISolone 125 MG/2 ML VIAL IV (10:13)
[2020-05-03] MEDS: diphenhydrAMINE 50 MG/ML VIAL 25 MG IV (10:13)
--- NOTE | 2020-05-03 10:18 | ED_ITS ---
HPI - Abdominal Pain General Chief Complaint: Abdominal Pain Stated Complaint: abdominal/back pain Time Seen by Provider: 05/03/20 09:42 Source: patient Mode of arrival: Ambulatory Limitations: no limitations History of Present Illness HPI narrative: Patient is a 30-year-old female who has a history of type 1 diabetes in frequent DKA presenting today with abdominal pain. She says it started yesterday in her right lower quadrant radiates through to her back. She has been having some episodes of diarrhea and soft stool no nausea or vomiting. Her sugars have been elevated. MD complaint: abdominal pain Onset (ago): day(s) Pain Consistency: constant Location: RLQ Severity: mild Quality: cramping Relieving factors: nothing Related Data Home Medications Medication Instructions Recorded Confirmed Glucagon Emergency Kit (human) 1 mg SUBCUT DIRECTED 02/16/19 03/05/20 insulin degludec 50 unit SUBCUT DAILY 11/21/19 03/05/20 insulin aspart U-100 [Novolog 7 unit SUBCUT AC 01/03/20 03/05/20 Flexpen U-100 Insulin] lisinopril 10 mg PO DAILY 02/03/20 03/05/20 amoxicillin-pot clavulanate 1 tab PO BID 03/05/20 03/05/20 Previous Rx's Medication Instructions Recorded glucose 4 gram PO Q15M PRN #30 tab 12/12/18 Allergies Allergy/AdvReac Type Severity Reaction Status Date / Time arredondo [ARREDONDO] Allergy Intermediate Hives, Verified 05/03/20 09:36 pruritus iodine [IODINE] Allergy Intermediate rash, itchy Verified 05/03/20 09:36 morphine Allergy Intermediate Difficulty Verified 05/03/20 09:36 Breathing shellfish derived Allergy Intermediate rash Verified 05/03/20 09:36 [SHELLFISH DERIVED] adhesive [ADHESIVE] Allergy Unknown tape Verified 05/03/20 09:36 latex [LATEX] Allergy Unknown Hives Verified 05/03/20 09:36 Review of Systems Review of Systems Narrative: GENERAL: Denies chills, fatigue, malaise, fever, sweats, travel HEENT: Denies sinus pain, ear pain, sore throat, difficulty swallowing, neck pain RESPIRATORY: Denies dyspnea, cough, wheezing, hemoptysis, sputum. CARDIOVASCULAR: Denies chest pain, palpitations, orthopnea, edema GASTROINTESTINAL: See HPI : Denies dysuria, frequency, incontinence, hematuria, urinary retention, flank pain. MUSCULOSKELETAL: Denies weakness, joint pain, or bony pain SKIN: No rash, no erythema, no pruritus NEUROLOGIC: Denies weakness, dizziness, headache, numbness, change in speech, confusion PSYCHIATRIC: No concerning psychosocial issues. 12 point review of systems is negative except for those stated above and HPI Patient History Medical History (Updated 05/03/20 @ 12:59 by Megan Luevano DO) DKA (diabetic ketoacidoses) History of pyelonephritis Irregular menstrual cycle Migraine headache Nephrolithiasis Type 1 diabetes mellitus Surgical History History of ureter stent Hx of local excision of skin lesion Status post laser lithotripsy of ureteral calculus [place] teeth extracted Family History Father In good health Mother Cardiac disease Social History details: Engaged household members: significant other and family Smoking Status: Never smoker alcohol intake: former Smoking Status: Never smoker alcohol intake frequency: holidays/special occasions only Substance Use Type: does not use Exam Initial Vital Signs Initial Vital Signs: Vital Signs Temperature 98.3 F 05/03/20 09:30 Pulse Rate 130 H 05/03/20 09:30 Respiratory Rate 17 05/03/20 09:30 Blood Pressure 183/104 H 05/03/20 09:30 Pulse Oximetry 100 05/03/20 09:30 GENERAL: Very thin appearing young female appears in pain HEENT: Head atraumatic,EOMI, pupils reactive, face symmetric, moist mucous mem branes CARDIOVASCULAR: Regular rate and rhythm without murmurs, rubs or gallops. RESPIRATORY: Breath sounds equal bilaterally, no wheezes rales or rhonchi. ABDOMEN: Soft, tender right lower quadrant without guarding or rebound : No CVA tenderness EXTREMITIES: Normal range of motion, no clubbing or edema. Neurovascularly intact NEUROLOGICAL: Alert and oriented x4.Normal gait and speech. SKIN: Warm, dry, no laceration, no petechiae, no rashes or lesions. Incision on right ankle clean and dry no erythema or infection noted Course Orders Ordered: ED Orders 05/03/20 12:07 CT abdomen pelvis w con Stat 05/03/20 12:11 Urine Microscopic Stat Discontinued Medications Diphenhydramine HCl (Diphenhydramine 50 Mg/Ml Vial) 25 mg IV NOW ONE Stop: 05/03/20 10:04 Last Admin: 05/03/20 10:13 Dose: 25 mg Documented by: KASSANDRA Hydromorphone HCl (Hydromorphone 1 Mg Inj) 1 mg IV NOW ONE Stop: 05/03/20 10:36 Last Admin: 05/03/20 11:11 Dose: 1 mg Documented by: KASSANDRA Sodium Chloride (Normal Saline 0.9%) 1,000 mls @ 1,000 mls/hr IV BOLUS ONE Stop: 05/03/20 10:43 Last Infusion: 05/03/20 11:41 Dose: 0 mls/hr Documented by: Admin: 05/03/20 09:59 Dose: 1,000 mls/hr Documented by: KASSANDRA Sodium Chloride (Normal Saline 0.9%) 1,000 mls @ 1,000 mls/hr IV BOLUS ONE Stop: 05/03/20 12:06 Last Infusion: 05/03/20 13:23 Dose: 0 mls/hr Documented by: Admin: 05/03/20 11:11 Dose: 1,000 mls/hr Documented by: KASSANDRA Methylprednisolone (Methylprednisolone 125 Mg/2 Ml Vial) 125 mg IV NOW ONE Stop: 05/03/20 10:04 Last Admin: 05/03/20 10:13 Dose: 125 mg Documented by: KASSANDRA Ondansetron HCl (Ondansetron 4 Mg/2 Ml Inj) 4 mg IV NOW ONE Stop: 05/03/20 09:45 Last Admin: 05/03/20 11:40 Dose: Not Given Documented by: SILVIA Vital Signs Vital signs: Vital Signs - 8 hr 05/03/20 11:30 05/03/20 12:00 05/03/20 12:23 Pulse Rate 116 H 121 H 122 H Blood Pressure 171/113 H 165/111 H 156/108 H Pulse Oximetry 98 96 97 05/03/20 12:30 05/03/20 13:00 05/03/20 13:23 Pulse Rate 118 H 113 H 100 H Blood Pressure Pulse Oximetry 96 100 MDM - Abdominal Pain Lab Data Attestation: I reviewed the patient's lab results. Result diagrams: 05/03/20 09:40 05/03/20 09:40 Labs: Lab Results 05/03/20 05/03/20 05/03/20 Range/Units 09:40 09:40 09:40 WBC 6.1 (4.5-11.0) X10^3/uL RBC 4.47 (4.0-5.2) X10^6/uL Hgb 13.9 (12.0-16.0) g/dL Hct 41.4 (36-46) % MCV 92.5 D (80-100) fL MCH 31.1 (26-34) PG MCHC 33.6 (30-36) % RDW 12.6 (11.6-14.8) % Plt Count 439 H (150-400) X10^3/uL Neut % (Auto) 64.5 (50-75) % Lymph % (Auto) 25.9 (25-40) % [place] % (Auto) 7.5 (3-14) % Eos % (Auto) 0.9 L (2-4) % Baso % (Auto) 1.2 (0-2) % Neut # (Auto) 3900 (7160-3772) /uL Lymph # (Auto) 1600 (2963-6008) /uL [place] # (Auto) 500 (0-900) /uL Eos # (Auto) 100 (0-450) /uL Baso # (Auto) 100 (0-100) /uL PT 9.7 L (10.1-12.7) SECONDS INR 0.8 L (0.9-1.3) APTT 30 (26.4-36.2) SECONDS VBG pH (7.33-7.43) VBG pCO2 (45-50) mmHg VBG pO2 (35-45) mmHg VBG HCO3 (23-28) mmol/L VBG Total CO2 (24-29) mmol/L VBG O2 Saturation (70-75) % VBG Base Excess (0-4) mmol/L Sodium 124 L (137-145) mmol/L Potassium 5.1 (3.4-5.1) mmol/L Chloride 92 L (98-107) mmol/L Carbon Dioxide 24 (22-32) mmol/L BUN 20 H (7-17) mg/dL Creatinine 0.45 L (0.52-1.04) mg/dL Estimated GFR > 60.0 (>60) mL/min BUN/Creatinine Ratio 44.4 H (6-22) Glucose 713 H* (70-100) mg/dL Calcium 9.0 (8.4-10.2) mg/dL Total Bilirubin 0.3 (0.2-1.3) mg/dL AST 19 (14-36) IU/L ALT 14 (<35) IU/L Alkaline Phosphatase 190 H (38-126) U/L Total Protein 6.9 (6.3-8.2) g/dL Albumin 4.2 (3.5-5.0) g/dL Globulin 2.7 (1.7-4.1) g/dL Albumin/Globulin Ratio 1.6 (1.0-2.8) Lipase 221 (23-300) U/L Urine RBC (0-5/HPF) Urine WBC (0-5/HPF) Urine Bacteria (None) Ur Culture Indicated? Micro UA Comment 05/03/20 05/03/20 Range/Units 09:49 12:11 WBC (4.5-11.0) X10^3/uL RBC (4.0-5.2) X10^6/uL Hgb (12.0-16.0) g/dL Hct (36-46) % MCV (80-100) fL MCH (26-34) PG MCHC (30-36) % RDW (11.6-14.8) % Plt Count (150-400) X10^3/uL Neut % (Auto) (50-75) % Lymph % (Auto) (25-40) % [place] % (Auto) (3-14) % Eos % (Auto) (2-4) % Baso % (Auto) (0-2) % Neut # (Auto) (2290-3203) /uL Lymph # (Auto) (7355-1417) /uL [place] # (Auto) (0-900) /uL Eos # (Auto) (0-450) /uL Baso # (Auto) (0-100) /uL PT (10.1-12.7) SECONDS INR (0.9-1.3) APTT (26.4-36.2) SECONDS VBG pH 7.46 H (7.33-7.43) VBG pCO2 34.2 L (45-50) mmHg VBG pO2 60 H (35-45) mmHg VBG HCO3 24 (23-28) mmol/L VBG Total CO2 25 (24-29) mmol/L VBG O2 Saturation 92 H (70-75) % VBG Base Excess 0.0 (0-4) mmol/L Sodium (137-145) mmol/L Potassium (3.4-5.1) mmol/L Chloride (98-107) mmol/L Carbon Dioxide (22-32) mmol/L BUN (7-17) mg/dL Creatinine (0.52-1.04) mg/dL Estimated GFR (>60) mL/min BUN/Creatinine Ratio (6-22) Glucose (70-100) mg/dL Calcium (8.4-10.2) mg/dL Total Bilirubin (0.2-1.3) mg/dL AST (14-36) IU/L ALT (<35) IU/L Alkaline Phosphatase (38-126) U/L Total Protein (6.3-8.2) g/dL Albumin (3.5-5.0) g/dL Globulin (1.7-4.1) g/dL Albumin/Globulin Ratio (1.0-2.8) Lipase (23-300) U/L Urine RBC None seen (0-5/HPF) Urine WBC None seen (0-5/HPF) Urine Bacteria None seen (None) Ur Culture Indicated? Cult not indicated Micro UA Comment Microscopic normal Point of care testing: Point of Care Testing Test Results Negative Glucose POC 367 Urine Dip Bedside Urine Glucose 1000 mg/dl Bedside Urine Bilirubin - Negative Bedside Urine Ketone - Negative Urine Specific [place] 1.015 Bedside Urine Occult Blood +/- Bedside Urine pH 7 Bedside Urine Protein + 30 Bedside Urine Urobilinogen - Negative Bedside Urine Nitrite - Negative Bedside Urine Leukocytes - Negative Esterase Imaging Data CT scan - abdomen/pelvis: Radiologist's Impression: PROCEDURE: CT ABDOMEN PELVIS W CON INDICATIONS: rlq pain TECHNIQUE: After the administration of oral and intravenous contrast, 5 mm thick sections acquired from the diaphragms to the symphysis. 5 mm thick coronal and sagittal reformats were performed. For radiation dose reduction, the following was used: automated exposure control, adjustment of mA and/or kV according to patient size. COMPARISON: [facility], CT, CT ABDOMEN PELVIS W CON, 12/11/2019, 18:48. FINDINGS: Image quality: Excellent. ABDOMEN: Lung bases: Lung bases are clear. Heart size is normal. Solid organs: Evaluation of the liver demonstrates no focal hepatic lesions. The gallbladder appears within normal limits without calcified gallstones. Biliary system is non-dilated. Pancreas enhances normally. No peripancreatic fat stranding or fluid collections. No pancreatic duct dilatation. The spleen is normal in size. No adrenal nodules. Kidneys demonstrate no hydronephrosis. There are multiple foci of cortical thinning in the kidneys bilaterally, right greater than left, suggesting sequelae of prior infection. No definite striated nephrogram or perinephric stranding to suggest pyelonephritis. No perinephric fluid collections. Peritoneum and bowel: Stomach, small bowel, and colon loops are normal in caliber and wall thickness. The appendix is not discretely well visualized due to adjacent loops of bowel however no pericecal inflammatory changes are demonstrated to suggest acute appendicitis. No free fluid or air. Nodes and vessels: No retroperitoneal or mesenteric adenopathy. Aorta and inferior vena cava are normal in caliber. Miscellaneous: No ventral hernias. PELVIS: Genitourinary: There is concentric bladder wall thickening with associated mild fat stranding. Miscellaneous: No inguinal hernias or adenopathy. Bones: No suspicious bony lesions. No vertebral body compression fractures. IMPRESSION: 1. No definite evidence of appendicitis. 2. Concentric bladder wall thickening with associated mild fat stranding suggestive of a cystitis. Recommend correlation with urinalysis. 3. Bilateral foci of renal cortical thinning, right greater than left, likely reflecting sequelae of prior infection and less likely due to prior infarcts or trauma. No definite CT evidence of acute pyelonephritis at this time. Dictated by: Jesus Winston M.D. on 05/03/2020 at 12:37 MDM Narrative Medical decision making narrative: Patient is hyperglycemic but and not DKA. CT is within normal limits. She is feeling better after IV fluids pain meds and nausea medication. She thinks that she might be constipated although CT does not show she is constipated. I do recommend continuing MiraLax and Metamucil if needed. Discharge Plan Departure Patient Disposition: Home Clinical Impression: Acute hyperglycemia Abdominal pain Qualifiers: Abdominal location: right lower quadrant Qualified Code(s): R10.31 - Right lower quadrant pain Instructions: DI for Abdominal Pain-Adult Activity Restrictions/Additional Instructions: *You have been diagnosed with hyperglycemia and abdominal pain *What to do: Increased movement and water intake as tolerated. *Continue to take medications as directed MiraLax once daily as prescribed Metamucil once daily as prescribed Colace 100 mg twice a day *Follow up with your primary care provider in 2-3 days *Return to ER if you should have increased abdominal pain persistent vomiting or any new, worsening or concerning symptoms Prescriptions: No Action glucose 4 gram tablet,chewable 4 gram PO Q15M PRN (Reason: hypoglycemia) Qty: 30 RF: 0 Glucagon Emergency Kit (human) 1 mg recon soln 1 mg subcut DIRECTED RF: 0 insulin degludec 200 unit/mL (3 mL) Insulin Pen 50 unit SUBCUT DAILY RF: 0 insulin aspart U-100 [Novolog Flexpen U-100 Insulin] 100 unit/mL (3 mL) insulin pen 7 unit SUBCUT AC RF: 0 lisinopril 10 mg tablet 10 mg PO DAILY RF: 0 amoxicillin-pot clavulanate 875-125 mg tablet 1 tab PO BID RF: 0
[2020-05-03] MEDS: HYDROMORPHONE 1 MG INJ IV (11:11)
--- NOTE | 2020-05-03 12:07 | DI.CT.S_ITS ---
PROCEDURE: CT ABDOMEN PELVIS W CON INDICATIONS: rlq pain TECHNIQUE: After the administration of oral and intravenous contrast, 5 mm thick sections acquired from the diaphragms to the symphysis. 5 mm thick coronal and sagittal reformats were performed. For radiation dose reduction, the following was used: automated exposure control, adjustment of mA and/or kV according to patient size. COMPARISON: [facility], CT, CT ABDOMEN PELVIS W CON, 12/11/2019, 18:48. FINDINGS: Image quality: Excellent. ABDOMEN: Lung bases: Lung bases are clear. Heart size is normal. Solid organs: Evaluation of the liver demonstrates no focal hepatic lesions. The gallbladder appears within normal limits without calcified gallstones. Biliary system is non-dilated. Pancreas enhances normally. No peripancreatic fat stranding or fluid collections. No pancreatic duct dilatation. The spleen is normal in size. No adrenal nodules. Kidneys demonstrate no hydronephrosis. There are multiple foci of cortical thinning in the kidneys bilaterally, right greater than left, suggesting sequelae of prior infection. No definite striated nephrogram or perinephric stranding to suggest pyelonephritis. No perinephric fluid collections. Peritoneum and bowel: Stomach, small bowel, and colon loops are normal in caliber and wall thickness. The appendix is not discretely well visualized due to adjacent loops of bowel however no pericecal inflammatory changes are demonstrated to suggest acute appendicitis. No free fluid or air. Nodes and vessels: No retroperitoneal or mesenteric adenopathy. Aorta and inferior vena cava are normal in caliber. Miscellaneous: No ventral hernias. PELVIS: Genitourinary: There is concentric bladder wall thickening with associated mild fat stranding. Miscellaneous: No inguinal hernias or adenopathy. Bones: No suspicious bony lesions. No vertebral body compression fractures. IMPRESSION: 1. No definite evidence of appendicitis. 2. Concentric bladder wall thickening with associated mild fat stranding suggestive of a cystitis. Recommend correlation with urinalysis. 3. Bilateral foci of renal cortical thinning, right greater than left, likely reflecting sequelae of prior infection and less likely due to prior infarcts or trauma. No definite CT evidence of acute pyelonephritis at this time. Dictated by: Jesus Winston M.D. on 05/03/2020 at 12:37 Approved by: Jesus Winston M.D. on 05/03/2020 at 12:43
[2020-05-03 12:26] LABS: Bacteria Urine None Seen; RBC Urine None Seen (0-5/HPF); WBC Urine None Seen (0-5/HPF)
[2020-05-03 12:33] LABS: Culture Indicated Urine Cult Not Indicated; Urine Comments Microscopic Normal
== END 2020-05-03 13:28 | disposition home or self-care (01) ==
PROVIDERS: Emergency Provider Emergency Medicine
DX: R10.31 Right lower quadrant pain (principal); E10.65 Type 1 diabetes mellitus with hyperglycemia; Z79.4 Long term (current) use of insulin; R19.7 Diarrhea, unspecified
CPT/HCPCS: 36415; 74177; 80053; 81003; 81015; 81025; 82805; 82962; 83690; 85025; 85610; 85730; 93005; 93010; 96361; 96374; 96375; 99284; 99285; J1170; J1200; J2930; Q9967

== ENCOUNTER 2020-05-04 18:01 | Emergency (ER) | payer OTHER, MEDICAID, SELFPAY ==
[2020-03-05 02:05] VITALS: BMI 18.1
[2020-05-04] VITALS (9 sets, daily range): BP systolic 143–171; BP diastolic 73–113; PULSE 122–143; RESP 11–26; TEMP 36.8; O2SAT 95–99; BMI 18.8
[2020-05-04] MEDS: SODIUM CHLORIDE 0.9% 1,000 ML 1000 ML IV (18:52)
[2020-05-04 19:01] LABS: Add Manual Diff / Slide Review NO; Basophils Absolute Auto 100 /uL (0-100); Basophils Percent Auto 0.8 % (0-2); Eosinophils Absolute Auto 0 /uL (0-450); Eosinophils Percent Auto 0.3 % (2-4); Hematocrit 41.7 % (36-46); Hemoglobin 13.8 g/dL (12.0-16.0); Lymphocytes Absolute Auto 1200 /uL (1100-4500); Lymphocytes Percent Auto 18.9 % (25-40); Mean Corpuscular HGB Conc 33.1 % (30-36); Mean Corpuscular Hemoglobin 31.1 PG (26-34); Mean Corpuscular Volume 94.1 fL (80-100); Monocytes Absolute Auto 500 /uL (0-900); Monocytes Percent Auto 7.1 % (3-14); Neutrophils Absolute Auto 4800 /uL (1500-7000); Neutrophils Percent Auto 72.9 % (50-75); Platelet Count 419 X10^3/uL (150-400); Red Blood Cell Count 4.44 X10^6/uL (4.0-5.2); Red Cell Distribution Width 12.5 % (11.6-14.8); White Blood Cell Count 6.6 X10^3/uL (4.5-11.0)
[2020-05-04 19:08] LABS: Lactate (Lactic Acid) 0.9 mmol/L (0.7-2.1)
[2020-05-04 19:10] LABS: Alanine Aminotransferase 16 IU/L (<35); Albumin 3.9 g/dL (3.5-5.0); Albumin Globulin Ratio 1.4 (1.0-2.8); Alkaline Phosphatase 244 U/L (38-126); Aspartate Aminotransferase 22 IU/L (14-36); BUN Creatinine Ratio 43.1 (6-22); Bilirubin Total 0.4 mg/dL (0.2-1.3); Blood Urea Nitrogen 22 mg/dL (7-17); Calcium 9.1 mg/dL (8.4-10.2); Carbon Dioxide 21 mmol/L (22-32); Chloride 94 mmol/L (98-107); Estimated Glomerular Filt Rate > 60.0 mL/min (>60); Globulin 2.7 g/dL (1.7-4.1); Lipase 261 U/L (23-300); Phosphorous 4.4 mg/dL (2.5-4.5); Potassium 4.8 mmol/L (3.4-5.1); Sodium 126 mmol/L (137-145); Total Protein 6.6 g/dL (6.3-8.2)
[2020-05-04 19:10] LABS: pH VBG 7.42 (7.33-7.43)
[2020-05-04 19:11] LABS: HCO3 VBG 21 mmol/L (23-28); Oxygen Saturation VBG 95 % (70-75); PCO2 VBG 32.6 mmHg (45-50); PO2 VBG 72 mmHg (35-45); Total CO2 VBG 22 mmol/L (24-29)
[2020-05-04 19:12] LABS: Ketones (Beta-Hydroxybutyrate) 4.02 mmol/L (<0.27)
[2020-05-04 19:15] LABS: Pregnancy Test Serum,Qual Negative (Negative)
[2020-05-04 19:17] LABS: Ethanol (ETOH) < 10 mg/dL; HEMOLYSIS < 15 (0-50)
[2020-05-04 19:18] LABS: Glucose 764 mg/dL (70-100)
[2020-05-04 19:36] LABS: Procalcitonin < 0.05 ng/mL (<0.5)
--- NOTE | 2020-05-04 19:42 | ED.GENADULT ---
HPI - General Adult General Chief complaint: Abdominal Pain Stated complaint: abd pain getting worse Time Seen by Provider: 05/04/20 18:05 Source: patient and family Mode of arrival: Ambulatory Limitations: no limitations History of Present Illness HPI narrative: 30-year-old female who is well known to myself in this emergency department as a type 1 diabetic. Here for evaluation right-sided back pain. She was seen here in the emergency department approximately 24 hours ago for right-sided abdominal pain. Had a workup that time which showed a normal CT scan and the patient was not in DKA despite having a elevated blood glucose level. She arrives today for right-sided back pain. She states that it is different than the abdominal pain that she had 24 hours ago. She recently had surgery on her right foot and has been wearing a walking boot. She does see a chiropractic and also has a lift in her left shoe. Denies any fevers. No urinary symptoms. No change in bowel habits. Related Data Home Medications Medication Instructions Recorded Confirmed Glucagon Emergency Kit (human) 1 mg SUBCUT DIRECTED 02/16/19 03/05/20 insulin degludec 50 unit SUBCUT DAILY 11/21/19 03/05/20 insulin aspart U-100 [Novolog 7 unit SUBCUT AC 01/03/20 03/05/20 Flexpen U-100 Insulin] lisinopril 10 mg PO DAILY 02/03/20 03/05/20 amoxicillin-pot clavulanate 1 tab PO BID 03/05/20 03/05/20 Previous Rx's Medication Instructions Recorded glucose 4 gram PO Q15M PRN #30 tab 12/12/18 Allergies Allergy/AdvReac Type Severity Reaction Status Date / Time arredondo [ARREDONDO] Allergy Intermediate Hives, Verified 05/04/20 18:09 pruritus iodine [IODINE] Allergy Intermediate rash, itchy Verified 05/04/20 18:09 morphine Allergy Intermediate Difficulty Verified 05/04/20 18:09 Breathing shellfish derived Allergy Intermediate rash Verified 05/04/20 18:09 [SHELLFISH DERIVED] adhesive [ADHESIVE] Allergy Unknown tape Verified 05/04/20 18:09 latex [LATEX] Allergy Unknown Hives Verified 05/04/20 18:09 Review of Systems Constitutional Constitutional: Denies fever(s) Cardiovascular Cardiovascular: Denies chest pain and Denies dyspnea Respiratory Respiratory: Denies dyspnea Gastrointestinal Gastrointestinal: Denies abdominal pain, Denies nausea and Denies vomiting Genitourinary Genitourinary: Denies dysuria Genitourinary: Denies dysuria and Denies vaginal discharge Musculoskeletal Musculoskeletal: Reports back pain (Right lower back) Integumentary/Breasts Skin/Breast: Denies rash Neurologic Neurologic: Denies behavioral changes Psychiatric Psychiatric: Denies behavioral changes Hematologic/Lymphatic On Anticoagulants: No Allergic/Immunologic Allergic/Immunologic: Denies urticaria Patient History Medical History DKA (diabetic ketoacidoses) History of pyelonephritis Irregular menstrual cycle Migraine headache Nephrolithiasis Type 1 diabetes mellitus Surgical History History of ureter stent Hx of local excision of skin lesion Status post laser lithotripsy of ureteral calculus [place] teeth extracted Family History Father In good health Mother Cardiac disease Social History details: Engaged household members: significant other and family Smoking Status: Never smoker alcohol intake: former Smoking Status: Never smoker alcohol intake frequency: holidays/special occasions only Substance Use Type: does not use Exam Initial Vital Signs Initial Vital Signs: Vital Signs Pulse Rate 142 H 05/04/20 18:07 Blood Pressure 164/113 H 05/04/20 18:07 Pulse Oximetry 99 05/04/20 18:07 Const General: frail appearing Limitations: mental status not altered [facility] Head: normal to inspection and normocephalic Resp Effort & Inspection: normal respiratory effort Cardio Rate: regular rate GI Inspection: non-distended Palpation: soft and No firm Back/Spine/Pelvis Thoracic/Lumbar Spine: paraspinal tenderness (Right lower back) Skin Lesions: no lesions Rashes: no rashes Neuro General: patient alert and patient awake Cognition: normal cognition Speech: speech normal Extrem General: capillary refill normal Psych Appearance: disheveled Course Orders Ordered: ED Orders 05/04/20 18:15 Complete Blood Count AUTO DIFF Stat Comprehensive Metabolic Panel Stat Ethanol (ETOH) Stat Ketones (Beta-Hydroxybutyrate) Stat Lactate (Lactic Acid) Stat Lipase Stat Magnesium Stat Phosphorous Stat Test Serum,Qual Stat Procalcitonin Stat 05/04/20 18:55 Venous Blood Gas Stat Discontinued Medications Hydromorphone HCl (Hydromorphone 0.5 Mg Inj) 0.5 mg IV NOW ONE Stop: 05/04/20 20:32 Last Admin: 05/04/20 20:36 Dose: 0.5 mg Documented by: YAMILETH Sodium Chloride (Normal Saline 0.9%) 1,000 mls @ 1,000 mls/hr IV BOLUS ONE Stop: 05/04/20 19:44 Last Infusion: 05/04/20 19:52 Dose: 0 mls/hr Documented by: Admin: 05/04/20 18:52 Dose: 1,000 mls/hr Documented by: ARTHUR Insulin Human Regular (Insulin Regular 100 Unit/Ml 3 Ml Vial) 10 unit SUBCUT NOW ONE Stop: 05/04/20 19:44 Last Admin: 05/04/20 19:54 Dose: 10 unit Documented by: YAMILETH Cosigned by: EMILE Ketorolac Tromethamine (Ketorolac 60 Mg/2 Ml Vial) 30 mg IV NOW ONE Stop: 05/04/20 19:44 Last Admin: 05/04/20 19:53 Dose: 30 mg Documented by: YAMILETH Tramadol HCl (Tramadol 50 Mg Tablet) 50 mg PO NOW ONE Stop: 05/04/20 19:44 Last Admin: 05/04/20 19:56 Dose: 50 mg Documented by: YAMLIETH Vital Signs Vital signs: Vital Signs - 8 hr 05/04/20 18:07 05/04/20 18:09 05/04/20 18:30 Temperature 98.3 F Pulse Rate 142 H 143 H 125 H Respiratory Rate 26 H 13 Blood Pressure 164/113 H 164/113 H 164/110 H Pulse Oximetry 99 99 97 05/04/20 19:00 05/04/20 19:30 05/04/20 20:00 Temperature Pulse Rate 126 H 132 H 122 H Respiratory Rate 16 23 15 Blood Pressure 171/103 H 158/91 H 163/108 H Pulse Oximetry 96 96 96 05/04/20 20:30 05/04/20 21:00 05/04/20 21:30 Temperature Pulse Rate 133 H 135 H 138 H Respiratory Rate 13 11 L 16 Blood Pressure 160/100 H 159/90 H 143/73 H Pulse Oximetry 97 95 96 Medical Decision Making Medical Records Medical records reviewed: Yes I reviewed the patient's medical records. Lab Data Lab results reviewed: Yes I reviewed the patient's lab results. Result diagrams: 05/04/20 18:15 05/04/20 18:15 Labs: Lab Results 05/04/20 05/04/20 05/04/20 Range/Units 18:15 18:15 18:15 WBC 6.6 (4.5-11.0) X10^3/uL RBC 4.44 (4.0-5.2) X10^6/uL Hgb 13.8 (12.0-16.0) g/dL Hct 41.7 (36-46) % MCV 94.1 (80-100) fL MCH 31.1 (26-34) PG MCHC 33.1 (30-36) % RDW 12.5 (11.6-14.8) % Plt Count 419 H (150-400) X10^3/uL Neut % (Auto) 72.9 (50-75) % Lymph % (Auto) 18.9 L (25-40) % [place] % (Auto) 7.1 (3-14) % Eos % (Auto) 0.3 L (2-4) % Baso % (Auto) 0.8 (0-2) % Neut # (Auto) 4800 (7445-7960) /uL Lymph # (Auto) 1200 (3411-8430) /uL [place] # (Auto) 500 (0-900) /uL Eos # (Auto) 0 (0-450) /uL Baso # (Auto) 100 (0-100) /uL VBG pH (7.33-7.43) VBG pCO2 (45-50) mmHg VBG pO2 (35-45) mmHg VBG HCO3 (23-28) mmol/L VBG Total CO2 (24-29) mmol/L VBG O2 Saturation (70-75) % VBG Base Excess (0-4) mmol/L Sodium 126 L (137-145) mmol/L Potassium 4.8 (3.4-5.1) mmol/L Chloride 94 L (98-107) mmol/L Carbon Dioxide 21 L (22-32) mmol/L BUN 22 H (7-17) mg/dL Creatinine 0.51 L (0.52-1.04) mg/dL Estimated GFR > 60.0 (>60) mL/min BUN/Creatinine Ratio 43.1 H (6-22) Glucose 764 H* (70-100) mg/dL Lactate (0.7-2.1) mmol/L Calcium 9.1 (8.4-10.2) mg/dL Phosphorus 4.4 (2.5-4.5) mg/dL Magnesium 2.0 (1.6-2.3) mg/dL Total Bilirubin 0.4 (0.2-1.3) mg/dL AST 22 (14-36) IU/L ALT 16 (<35) IU/L Alkaline Phosphatase 244 H (38-126) U/L Total Protein 6.6 (6.3-8.2) g/dL Albumin 3.9 (3.5-5.0) g/dL Globulin 2.7 (1.7-4.1) g/dL Albumin/Globulin Ratio 1.4 (1.0-2.8) Lipase 261 (23-300) U/L Procalcitonin < 0.05 (<0.5) ng/mL Serum , Qual Negative (Negative) Ethyl Alcohol < 10 ( - 10) mg/dL Ketones 4.02 H (<0.27) mmol/L 05/04/20 05/04/20 Range/Units 18:15 18:55 WBC (4.5-11.0) X10^3/uL RBC (4.0-5.2) X10^6/uL Hgb (12.0-16.0) g/dL Hct (36-46) % MCV (80-100) fL MCH (26-34) PG MCHC (30-36) % RDW (11.6-14.8) % Plt Count (150-400) X10^3/uL Neut % (Auto) (50-75) % Lymph % (Auto) (25-40) % [place] % (Auto) (3-14) % Eos % (Auto) (2-4) % Baso % (Auto) (0-2) % Neut # (Auto) (4827-2896) /uL Lymph # (Auto) (3137-8886) /uL [place] # (Auto) (0-900) /uL Eos # (Auto) (0-450) /uL Baso # (Auto) (0-100) /uL VBG pH 7.42 (7.33-7.43) VBG pCO2 32.6 L (45-50) mmHg VBG pO2 72 H (35-45) mmHg VBG HCO3 21 L (23-28) mmol/L VBG Total CO2 22 L (24-29) mmol/L VBG O2 Saturation 95 H (70-75) % VBG Base Excess -3.0 L (0-4) mmol/L Sodium (137-145) mmol/L Potassium (3.4-5.1) mmol/L Chloride (98-107) mmol/L Carbon Dioxide (22-32) mmol/L BUN (7-17) mg/dL Creatinine (0.52-1.04) mg/dL Estimated GFR (>60) mL/min BUN/Creatinine Ratio (6-22) Glucose (70-100) mg/dL Lactate 0.9 (0.7-2.1) mmol/L Calcium (8.4-10.2) mg/dL Phosphorus (2.5-4.5) mg/dL Magnesium (1.6-2.3) mg/dL Total Bilirubin (0.2-1.3) mg/dL AST (14-36) IU/L ALT (<35) IU/L Alkaline Phosphatase (38-126) U/L Total Protein (6.3-8.2) g/dL Albumin (3.5-5.0) g/dL Globulin (1.7-4.1) g/dL Albumin/Globulin Ratio (1.0-2.8) Lipase (23-300) U/L Procalcitonin (<0.5) ng/mL Serum , Qual (Negative) Ethyl Alcohol ( - 10) mg/dL Ketones (<0.27) mmol/L Point of Care Testing Glucose POC 500 Point of care testing: Point of Care Testing Glucose POC 500 MDM Narrative Medical decision making narrative: Patient is hyperglycemic but not in DKA. She was given insulin per her sliding scale at home. She does not have abdominal pain. The pain that brought her in today is her right lower back. I feel we can hold on the CT scan. Given her history I do have some concern about overuse of opioids and coming to the emergency department for these types of medications. She states she had no change in pain after Toradol however after 1 dose of Dilaudid she reported a complete resolution of her symptoms. That would have hesitancy to provide opioid pain medication for only subjective findings in the future. She states she was going to talk with her primary doctor about starting on muscle relaxers. She was given return precautions and follow-up instructions. She expressed understanding agreement. Discharge Plan Departure Patient Disposition: Home Clinical Impression: Acute hip pain, Hyperglycemia Instructions: DI for Hip Pain Activity Restrictions/Additional Instructions: Continue all of your medications as directed. Contact your primary provider for a follow-up. Return to the emergency department for any new or worsening symptoms Prescriptions: No Action glucose 4 gram tablet,chewable 4 gram PO Q15M PRN (Reason: hypoglycemia) Qty: 30 RF: 0 Glucagon Emergency Kit (human) 1 mg recon soln 1 mg subcut DIRECTED RF: 0 insulin degludec 200 unit/mL (3 mL) Insulin Pen 50 unit SUBCUT DAILY RF: 0 insulin aspart U-100 [Novolog Flexpen U-100 Insulin] 100 unit/mL (3 mL) insulin pen 7 unit SUBCUT AC RF: 0 lisinopril 10 mg tablet 10 mg PO DAILY RF: 0 amoxicillin-pot clavulanate 875-125 mg tablet 1 tab PO BID RF: 0
[2020-05-04] MEDS: KETOROLAC 60 MG/2 ML VIAL 30 MG IV (19:53)
[2020-05-04] MEDS: INSULIN REGULAR 100 UNIT/ML 3 ML VIAL 10 UNIT SUBCUT (19:54)
[2020-05-04] MEDS: TRAMADOL 50 MG TABLET PO (19:56)
[2020-05-04] MEDS: HYDROMORPHONE 0.5 MG INJ IV (20:36)
== END 2020-05-04 21:41 | disposition home or self-care (01) ==
PROVIDERS: Emergency Provider Emergency Medicine
DX: E10.65 Type 1 diabetes mellitus with hyperglycemia (principal); Z79.4 Long term (current) use of insulin; M54.9 Dorsalgia, unspecified; M25.559 Pain in unspecified hip
CPT/HCPCS: 36415; 80053; 80320; 82009; 82805; 82962; 83605; 83690; 83735; 84100; 84145; 84703; 85025; 96361; 96372; 96374; 96375; 99282; 99284; J1170; J1885

== ENCOUNTER 2020-05-09 13:29 | Emergency (ER) | payer OTHER, MEDICAID, SELFPAY ==
[2020-03-05 02:05] VITALS: BMI 18.1
[2020-05-09 13:39] VITALS: BP 124/72; PULSE 141; RESP 22; TEMP 36.8; O2SAT 96
--- NOTE | 2020-05-09 13:44 | ED_ITS ---
HPI - General Adult General Chief complaint: Diabetic Problem Stated complaint: Feeling Dehydrated, Chills, Body Ache, Nausea Time Seen by Provider: 05/09/20 13:39 Source: patient, family (mother) and old records reviewed Mode of arrival: Ambulatory Limitations: no limitations History of Present Illness HPI narrative: This is a 30-year-old female who comes to the part min with complaint of feeling dehydrated, chills, body aches and nausea. Patient states she has not had fever or temperature. She had denies any cough, cold, congestion or upper respiratory symptoms. She describes nausea but no emesis. She has been drinking fluids regularly. She has had a little bit of abdominal pain. She was constipated but is now having regular bowel movements. She denies any dysuria, frequency, urgency or polyuria. Patient states she has been taking her insulin regularly. Her mother also states that she has been doing a good job taking her insulin. She is not currently on any other medications. She did have ankle surgery for fracture in early March. Related Data Home Medications Medication Instructions Recorded Confirmed Glucagon Emergency Kit (human) 1 mg SUBCUT DIRECTED 02/16/19 03/05/20 insulin degludec 50 unit SUBCUT DAILY 11/21/19 03/05/20 insulin aspart U-100 [Novolog 7 unit SUBCUT AC 01/03/20 03/05/20 Flexpen U-100 Insulin] lisinopril 10 mg PO DAILY 02/03/20 03/05/20 amoxicillin-pot clavulanate 1 tab PO BID 03/05/20 03/05/20 Previous Rx's Medication Instructions Recorded glucose 4 gram PO Q15M PRN #30 tab 12/12/18 Allergies Allergy/AdvReac Type Severity Reaction Status Date / Time arredondo [ARREDONDO] Allergy Intermediate Hives, Verified 05/09/20 13:41 pruritus iodine [IODINE] Allergy Intermediate rash, itchy Verified 05/09/20 13:41 morphine Allergy Intermediate Difficulty Verified 05/09/20 13:41 Breathing shellfish derived Allergy Intermediate rash Verified 05/09/20 13:41 [SHELLFISH DERIVED] adhesive [ADHESIVE] Allergy Unknown tape Verified 05/09/20 13:41 latex [LATEX] Allergy Unknown Hives Verified 05/09/20 13:41 Review of Systems Review of Systems ROS Unobtainable: All systems reviewed & are unremarkable except as noted in HPI and below Patient History Medical History (Updated 05/09/20 @ 15:39 by Carolyn Barker DO) DKA (diabetic ketoacidoses) History of pyelonephritis Irregular menstrual cycle Migraine headache Nephrolithiasis Type 1 diabetes mellitus Surgical History History of ureter stent Hx of local excision of skin lesion Status post laser lithotripsy of ureteral calculus [place] teeth extracted Family History Father In good health Mother Cardiac disease Social History details: Engaged household members: significant other and family Smoking Status: Never smoker alcohol intake: former Smoking Status: Never smoker alcohol intake frequency: holidays/special occasions only Substance Use Type: does not use Exam Narrative Exam Narrative: GENERAL: Alert and oriented x three, thin female in mild distress. HEENT: Head normocephalic, atraumatic, EOMI, pupils reactive, face symmetric, moist mucous membranes NECK: Supple, full range of motion CARDIOVASCULAR: Tachycardic but regular rate and rhythm without murmurs, rubs or gallops. RESPIRATORY: Breath sounds equal bilaterally, no wheezes rales or rhonchi. No tachypnea. ABDOMEN: Soft, mild generalized tenderness. Normoactive bowel sounds all 4 quadrants. No guarding or rebound, rigidity, no mass : No CVA tenderness EXTREMITIES: Normal range of motion, no clubbing or edema. Neurovascularly intact. NEUROLOGICAL: Cranial nerves II through XII grossly intact. Moving all extremities SKIN: Warm, dry, no petechiae, no rashes or lesions. Initial Vital Signs Initial Vital Signs: Vital Signs Temperature 98.3 F 05/09/20 13:39 Pulse Rate 141 H 05/09/20 13:39 Respiratory Rate 22 05/09/20 13:39 Blood Pressure 124/72 05/09/20 13:39 Pulse Oximetry 96 05/09/20 13:39 Course Orders Ordered: ED Orders 05/09/20 13:38 Venous Blood Gas Stat 05/09/20 14:01 Blood Culture Stat COVID19 Stat Complete Blood Count AUTO DIFF Stat Comprehensive Metabolic Panel Stat Ketones (Beta-Hydroxybutyrate) Stat Lactate (Lactic Acid) Stat Test Serum,Qual Stat Procalcitonin Stat Discontinued Medications Hydromorphone HCl (Hydromorphone 0.5 Mg Inj) 0.5 mg IV NOW ONE Stop: 05/09/20 14:58 Last Admin: 05/09/20 15:01 Dose: 0.5 mg Documented by: SCOTTY Sodium Chloride (Normal Saline 0.9%) 1,000 mls @ 1,000 mls/hr IV BOLUS ONE Stop: 05/09/20 14:37 Last Infusion: 05/09/20 16:01 Dose: 0 mls/hr Documented by: Admin: 05/09/20 14:12 Dose: 1,000 mls/hr Documented by: SCOTTY Sodium Chloride (Normal Saline 0.9%) 1,000 mls @ 1,000 mls/hr IV BOLUS ONE Stop: 05/09/20 16:34 Last Infusion: 05/09/20 17:33 Dose: 0 mls/hr Documented by: Admin: 05/09/20 16:01 Dose: 1,000 mls/hr Documented by: SHERWIN Insulin Human Regular (Insulin Regular 100 Unit/Ml 3 Ml Vial) 8 unit SUBCUT NOW ONE Stop: 05/09/20 15:36 Last Admin: 05/09/20 15:57 Dose: 8 unit Documented by: SHERWIN Cosigned by: CANDE Ketorolac Tromethamine (Ketorolac 60 Mg/2 Ml Vial) 30 mg IV NOW ONE Stop: 05/09/20 14:20 Last Admin: 05/09/20 14:21 Dose: 30 mg Documented by: SCOTTY Ondansetron HCl (Ondansetron 4 Mg/2 Ml Inj) 4 mg IV NOW ONE Stop: 05/09/20 13:39 Last Admin: 05/09/20 14:12 Dose: 4 mg Documented by: SCOTTY Vital Signs Vital signs: Vital Signs - 8 hr 05/09/20 13:39 05/09/20 13:48 05/09/20 14:00 Temperature 98.3 F Pulse Rate 141 H 134 H 133 H Respiratory Rate 22 Blood Pressure 124/72 121/69 Pulse Oximetry 96 96 96 05/09/20 14:30 05/09/20 15:00 05/09/20 17:47 Temperature Pulse Rate 124 H 121 H 123 H Respiratory Rate 14 Blood Pressure 130/92 H 145/97 H 143/100 H Pulse Oximetry 98 100 100 Medical Decision Making Lab Data Lab results reviewed: Yes I reviewed the patient's lab results. Result diagrams: 05/09/20 14:01 05/09/20 14:01 Labs: Lab Results 05/09/20 05/09/20 05/09/20 Range/Units 13:38 14:01 14:01 WBC 7.2 (4.5-11.0) X10^3/uL RBC 4.83 (4.0-5.2) X10^6/uL Hgb 14.8 (12.0-16.0) g/dL Hct 44.7 (36-46) % MCV 92.7 (80-100) fL MCH 30.7 (26-34) PG MCHC 33.1 (30-36) % RDW 12.6 (11.6-14.8) % Plt Count 439 H (150-400) X10^3/uL Neut % (Auto) 65.8 (50-75) % Lymph % (Auto) 27.4 (25-40) % [place] % (Auto) 5.9 (3-14) % Eos % (Auto) 0.3 L (2-4) % Baso % (Auto) 0.6 (0-2) % Neut # (Auto) 4700 (7981-0989) /uL Lymph # (Auto) 2000 (5084-8311) /uL [place] # (Auto) 400 (0-900) /uL Eos # (Auto) 0 (0-450) /uL Baso # (Auto) 0 (0-100) /uL VBG pH 7.42 (7.33-7.43) VBG pCO2 33.6 L (45-50) mmHg VBG pO2 63 H (35-45) mmHg VBG HCO3 22 L (23-28) mmol/L VBG Total CO2 23 L (24-29) mmol/L VBG O2 Saturation 92 H (70-75) % VBG Base Excess -3.0 L (0-4) mmol/L Sodium (137-145) mmol/L Potassium (3.4-5.1) mmol/L Chloride (98-107) mmol/L Carbon Dioxide (22-32) mmol/L BUN (7-17) mg/dL Creatinine (0.52-1.04) mg/dL Estimated GFR (>60) mL/min BUN/Creatinine Ratio (6-22) Glucose (70-100) mg/dL Lactate (0.7-2.1) mmol/L Calcium (8.4-10.2) mg/dL Total Bilirubin (0.2-1.3) mg/dL AST (14-36) IU/L ALT (<35) IU/L Alkaline Phosphatase (38-126) U/L Total Protein (6.3-8.2) g/dL Albumin (3.5-5.0) g/dL Globulin (1.7-4.1) g/dL Albumin/Globulin Ratio (1.0-2.8) Procalcitonin < 0.05 (<0.5) ng/mL Serum , Qual Negative (Negative) Ketones (<0.27) mmol/L SARS-CoV-2 (PCR) (Negative) 05/09/20 05/09/20 05/09/20 Range/Units 14:01 14:01 14:01 WBC (4.5-11.0) X10^3/uL RBC (4.0-5.2) X10^6/uL Hgb (12.0-16.0) g/dL Hct (36-46) % MCV (80-100) fL MCH (26-34) PG MCHC (30-36) % RDW (11.6-14.8) % Plt Count (150-400) X10^3/uL Neut % (Auto) (50-75) % Lymph % (Auto) (25-40) % [place] % (Auto) (3-14) % Eos % (Auto) (2-4) % Baso % (Auto) (0-2) % Neut # (Auto) (3819-1525) /uL Lymph # (Auto) (8089-9453) /uL [place] # (Auto) (0-900) /uL Eos # (Auto) (0-450) /uL Baso # (Auto) (0-100) /uL VBG pH (7.33-7.43) VBG pCO2 (45-50) mmHg VBG pO2 (35-45) mmHg VBG HCO3 (23-28) mmol/L VBG Total CO2 (24-29) mmol/L VBG O2 Saturation (70-75) % VBG Base Excess (0-4) mmol/L Sodium 128 L (137-145) mmol/L Potassium 4.8 (3.4-5.1) mmol/L Chloride 93 L (98-107) mmol/L Carbon Dioxide 18 L (22-32) mmol/L BUN 23 H (7-17) mg/dL Creatinine 0.56 (0.52-1.04) mg/dL Estimated GFR > 60.0 (>60) mL/min BUN/Creatinine Ratio 41.1 H (6-22) Glucose 562 H* (70-100) mg/dL Lactate 1.2 (0.7-2.1) mmol/L Calcium 9.9 (8.4-10.2) mg/dL Total Bilirubin 0.9 (0.2-1.3) mg/dL AST 36 (14-36) IU/L ALT 15 (<35) IU/L Alkaline Phosphatase 170 H (38-126) U/L Total Protein 7.3 (6.3-8.2) g/dL Albumin 4.4 (3.5-5.0) g/dL Globulin 2.9 (1.7-4.1) g/dL Albumin/Globulin Ratio 1.5 (1.0-2.8) Procalcitonin (<0.5) ng/mL Serum , Qual (Negative) Ketones 9.14 H (<0.27) mmol/L SARS-CoV-2 (PCR) Negative (Negative) Point of Care Testing Glucose POC 247 Urine Dip Bedside Urine Glucose 1000 mg/dl Bedside Urine Bilirubin - Negative Bedside Urine Ketone +++ 80 Urine Specific [place] 1.015 Bedside Urine Occult Blood +/- Bedside Urine pH 6.0 Bedside Urine Protein ++ 100 Bedside Urine Urobilinogen - Negative Bedside Urine Nitrite - Negative Bedside Urine Leukocytes - Negative Esterase Point of care testing: Point of Care Testing Glucose POC 247 Urine Dip Bedside Urine Glucose 1000 mg/dl Bedside Urine Bilirubin - Negative Bedside Urine Ketone +++ 80 Urine Specific [place] 1.015 Bedside Urine Occult Blood +/- Bedside Urine pH 6.0 Bedside Urine Protein ++ 100 Bedside Urine Urobilinogen - Negative Bedside Urine Nitrite - Negative Bedside Urine Leukocytes - Negative Esterase MDM Narrative Medical decision making narrative: 30-year-old female who comes emergency department with quite in DKA her pH is 7.42 on VBG but she does have a CO2 of 18 with an anion gap of 17. Her sodium corrected is 135 with a initial serum glucose of 562. Source of infection or other cause of her current hyperglycemia. Patient typically takes 8 units of insulin if she is in the 560 range. Will continue with some fluid resuscitation, 8 units of insulin subcutaneous and re-evaluate. Patient's glucose was 426 after 1 L normal saline. Patient after taking 8 units of insulin and additional fluids blood glucose is at 355. Patient is feeling improved and would like to return home at this time. She feels comfortable managing her sugars. Discharge Plan Departure Patient Disposition: Home Clinical Impression: Hyperglycemia Instructions: DI for Hyperglycemia -- Adult Activity Restrictions/Additional Instructions: Follow-up with your physician in the next 24-48 hours for recheck. Continue home medications as prescribed. Return to the ER for fevers, new or worsening chest pain, abdominal pain, persistent vomiting, altered mental status, you are having increasing urine output or other signs of DKA or fever having any other new or concerning symptoms. Prescriptions: No Action glucose 4 gram tablet,chewable 4 gram PO Q15M PRN (Reason: hypoglycemia) Qty: 30 RF: 0 Glucagon Emergency Kit (human) 1 mg recon soln 1 mg subcut DIRECTED RF: 0 insulin degludec 200 unit/mL (3 mL) Insulin Pen 50 unit SUBCUT DAILY RF: 0 insulin aspart U-100 [Novolog Flexpen U-100 Insulin] 100 unit/mL (3 mL) i nsulin pen 7 unit SUBCUT AC RF: 0 lisinopril 10 mg tablet 10 mg PO DAILY RF: 0 amoxicillin-pot clavulanate 875-125 mg tablet 1 tab PO BID RF: 0
[2020-05-09 13:48] VITALS: PULSE 134; O2SAT 96
[2020-05-09 14:00] VITALS: BP 121/69; PULSE 133; O2SAT 96
[2020-05-09 14:10] LABS: HCO3 VBG 22 mmol/L (23-28); Oxygen Saturation VBG 92 % (70-75); PCO2 VBG 33.6 mmHg (45-50); PO2 VBG 63 mmHg (35-45); Total CO2 VBG 23 mmol/L (24-29); pH VBG 7.42 (7.33-7.43)
[2020-05-09] MEDS: SODIUM CHLORIDE 0.9% 1,000 ML 1000 ML IV ×2 (14:12→16:01)
[2020-05-09] MEDS: ONDANSETRON 4 MG/2 ML INJ IV (14:12)
[2020-05-09 14:17] LABS: Add Manual Diff / Slide Review NO; Basophils Absolute Auto 0 /uL (0-100); Basophils Percent Auto 0.6 % (0-2); Eosinophils Absolute Auto 0 /uL (0-450); Eosinophils Percent Auto 0.3 % (2-4); Hematocrit 44.7 % (36-46); Hemoglobin 14.8 g/dL (12.0-16.0); Lymphocytes Absolute Auto 2000 /uL (1100-4500); Lymphocytes Percent Auto 27.4 % (25-40); Mean Corpuscular HGB Conc 33.1 % (30-36); Mean Corpuscular Hemoglobin 30.7 PG (26-34); Mean Corpuscular Volume 92.7 fL (80-100); Monocytes Absolute Auto 400 /uL (0-900); Monocytes Percent Auto 5.9 % (3-14); Neutrophils Absolute Auto 4700 /uL (1500-7000); Neutrophils Percent Auto 65.8 % (50-75); Platelet Count 439 X10^3/uL (150-400); Red Blood Cell Count 4.83 X10^6/uL (4.0-5.2); Red Cell Distribution Width 12.6 % (11.6-14.8); White Blood Cell Count 7.2 X10^3/uL (4.5-11.0)
[2020-05-09] MEDS: KETOROLAC 60 MG/2 ML VIAL 30 MG IV (14:21)
[2020-05-09 14:30] VITALS: BP 130/92; PULSE 124; O2SAT 98
[2020-05-09 14:35] LABS: COVID19 -Nasal RAPID Negative (Negative)
[2020-05-09 14:40] LABS: Pregnancy Test Serum,Qual Negative (Negative)
[2020-05-09 14:42] LABS: Lactate (Lactic Acid) 1.2 mmol/L (0.7-2.1)
[2020-05-09 14:44] LABS: Alanine Aminotransferase 15 IU/L (<35); Albumin 4.4 g/dL (3.5-5.0); Albumin Globulin Ratio 1.5 (1.0-2.8); Alkaline Phosphatase 170 U/L (38-126); Aspartate Aminotransferase 36 IU/L (14-36); BUN Creatinine Ratio 41.1 (6-22); Bilirubin Total 0.9 mg/dL (0.2-1.3); Blood Urea Nitrogen 23 mg/dL (7-17); Calcium 9.9 mg/dL (8.4-10.2); Carbon Dioxide 18 mmol/L (22-32); Chloride 93 mmol/L (98-107); Estimated Glomerular Filt Rate > 60.0 mL/min (>60); Globulin 2.9 g/dL (1.7-4.1); Potassium 4.8 mmol/L (3.4-5.1); Sodium 128 mmol/L (137-145); Total Protein 7.3 g/dL (6.3-8.2)
[2020-05-09 14:45] LABS: Glucose 562 mg/dL (70-100)
[2020-05-09 15:00] VITALS: BP 145/97; PULSE 121; O2SAT 100
[2020-05-09] MEDS: HYDROMORPHONE 0.5 MG INJ IV (15:01)
[2020-05-09 15:08] LABS: Ketones (Beta-Hydroxybutyrate) 9.14 mmol/L (<0.27)
[2020-05-09 15:09] LABS: HEMOLYSIS 95 (0-50)
[2020-05-09] MEDS: INSULIN REGULAR 100 UNIT/ML 3 ML VIAL 8 UNIT SUBCUT (15:57)
[2020-05-09 16:11] LABS: Procalcitonin < 0.05 ng/mL (<0.5)
[2020-05-09 17:47] VITALS: BP 143/100; PULSE 123; RESP 14; O2SAT 100
== END 2020-05-09 17:49 | disposition home or self-care (01) ==
PROVIDERS: Nurse Practitioner Family; Emergency Provider Emergency Medicine
DX: E10.65 Type 1 diabetes mellitus with hyperglycemia (principal); Z79.4 Long term (current) use of insulin; R10.9 Unspecified abdominal pain; Z20.822 Contact with and (suspected) exposure to COVID-19
CPT/HCPCS: 36415; 80053; 81003; 82009; 82805; 82962; 83605; 84145; 84703; 85025; 87040; 87635; 96361; 96372; 96374; 96375; 99282; 99284; C9803; J1170; J1885; J2405

== ENCOUNTER 2020-05-12 19:13 | Observation (INO) | payer OTHER, MEDICAID, SELFPAY ==
[2020-03-05 02:05] VITALS: BMI 18.1
[2020-05-12] VITALS (10 sets, daily range): BP systolic 110–148; BP diastolic 64–101; PULSE 124–138; RESP 11–38; TEMP 36.6–37.1; O2SAT 97–100; BMI 16.8
[2020-05-12 19:56] LABS: HCO3 VBG 17 mmol/L (23-28); Oxygen Saturation VBG 73 % (70-75); PCO2 VBG 32.8 mmHg (45-50); PO2 VBG 41 mmHg (35-45); pH VBG 7.32 (7.33-7.43)
[2020-05-12 19:59] LABS: Add Manual Diff / Slide Review NO; Basophils Absolute Auto 100 /uL (0-100); Basophils Percent Auto 0.9 % (0-2); Eosinophils Absolute Auto 0 /uL (0-450); Eosinophils Percent Auto 0.2 % (2-4); Hemoglobin 14.7 g/dL (12.0-16.0); Lymphocytes Absolute Auto 1500 /uL (1100-4500); Lymphocytes Percent Auto 21.6 % (25-40); Mean Corpuscular HGB Conc 32.6 % (30-36); Mean Corpuscular Volume 95.2 fL (80-100); Monocytes Absolute Auto 300 /uL (0-900); Monocytes Percent Auto 4.8 % (3-14); Neutrophils Absolute Auto 4900 /uL (1500-7000); Neutrophils Percent Auto 72.5 % (50-75); Platelet Count 379 X10^3/uL (150-400); Red Blood Cell Count 4.73 X10^6/uL (4.0-5.2); Red Cell Distribution Width 12.8 % (11.6-14.8); White Blood Cell Count 6.8 X10^3/uL (4.5-11.0)
[2020-05-12 20:07] LABS: Alanine Aminotransferase 13 IU/L (<35); Albumin 4.4 g/dL (3.5-5.0); Albumin Globulin Ratio 1.7 (1.0-2.8); Alkaline Phosphatase 193 U/L (38-126); Aspartate Aminotransferase 16 IU/L (14-36); BUN Creatinine Ratio 38.9 (6-22); Bilirubin Total 0.5 mg/dL (0.2-1.3); Blood Urea Nitrogen 28 mg/dL (7-17); Calcium 9.5 mg/dL (8.4-10.2); Carbon Dioxide 15 mmol/L (22-32); Chloride 89 mmol/L (98-107); Estimated Glomerular Filt Rate > 60.0 mL/min (>60); Globulin 2.6 g/dL (1.7-4.1); HEMOLYSIS < 15 (0-50); Potassium 5.1 mmol/L (3.4-5.1); Sodium 125 mmol/L (137-145)
[2020-05-12 20:11] LABS: Ketones (Beta-Hydroxybutyrate) 10.65 mmol/L (<0.27)
[2020-05-12] MEDS: SODIUM CHLORIDE 0.9% 1,000 ML 1000 ML IV ×2 (20:11→21:41)
[2020-05-12] MEDS: ONDANSETRON 4 MG/2 ML INJ IV (20:11)
[2020-05-12 20:15] LABS: Glucose 842 mg/dL (70-100)
[2020-05-12 20:23] LABS: Pregnancy Test Serum,Qual Negative (Negative)
--- NOTE | 2020-05-12 20:52 | DI.RAD.S_ITS ---
PROCEDURE: XR CHEST 1V INDICATIONS: cough TECHNIQUE: One view of the chest was acquired. COMPARISON: [facility], CR, XR CHEST 1V, 03/05/2020, 0:03. FINDINGS: Surgical changes and devices: None. Lungs and pleura: Lungs are clear. No pleural effusions or pneumothorax. Mediastinum: Mediastinal contours appear normal. Heart size is normal. Bones and chest wall: No suspicious bony lesions. Overlying soft tissues appear unremarkable. IMPRESSION: No acute cardiopulmonary abnormality. Dictated by: Luis F Mahmood M.D. on 05/12/2020 at 21:11 Approved by: Luis F Mahmood M.D. on 05/12/2020 at 21:11
--- NOTE | 2020-05-12 20:57 | ED_ITS ---
HPI - General Adult General Chief complaint: Diabetic Problem Stated complaint: mom states DKA Time Seen by Provider: 05/12/20 20:07 Source: patient and family Mode of arrival: Ambulatory Limitations: no limitations History of Present Illness HPI narrative: Patient here with mother. Feels like she is in DKA again. Seen here 3 days ago with hyperglycemia not improving. Has nausea but no vomiting. Has generalized body aches. Typical of her DKA pain. No fever chills cough cold congestion. No diarrhea. No sick contacts. No COVID exposure. History of DKA admits many times in the past. No changes in medication. States she has been compliant Related Data Home Medications Medication Instructions Recorded Confirmed Glucagon Emergency Kit (human) 1 mg SUBCUT DIRECTED 02/16/19 05/12/20 insulin degludec 50 unit SUBCUT DAILY 11/21/19 05/12/20 lisinopril 10 mg PO DAILY 02/03/20 05/12/20 Previous Rx's Medication Instructions Recorded glucose 4 gram PO Q15M PRN #30 tab 12/12/18 Allergies Allergy/AdvReac Type Severity Reaction Status Date / Time abdalla [ABDALLA] Allergy Intermediate Hives, Verified 05/09/20 13:41 pruritus iodine [IODINE] Allergy Intermediate rash, itchy Verified 05/09/20 13:41 morphine Allergy Intermediate Difficulty Verified 05/09/20 13:41 Breathing shellfish derived Allergy Intermediate rash Verified 05/09/20 13:41 [SHELLFISH DERIVED] adhesive [ADHESIVE] Allergy Unknown tape Verified 05/09/20 13:41 latex [LATEX] Allergy Unknown Hives Verified 05/09/20 13:41 Review of Systems Review of Systems Narrative: GENERAL: Denies chills, fatigue, malaise, fever, sweats. HEENT: Denies sinus pain, ear pain, sore throat, difficulty swallowing RESPIRATORY: Denies dyspnea, cough CARDIOVASCULAR: Denies chest pain, palpitations, edema, GASTROINTESTINAL: Complains nausea, vomiting, abdominal pain, denies diarrhea, constipation, melena. : Denies dysuria, hematuria MUSCULOSKELETAL: denies muscle or bony pain SKIN: Denies rash, skin lesions NEUROLOGIC: Denies weakness, headache, numbness, change in speech, confusion PSYCHIATRIC: No SI or HI or hallucinations ROS Unobtainable: All systems reviewed & are unremarkable except as noted in HPI and below Patient History Medical History DKA (diabetic ketoacidoses) History of pyelonephritis Irregular menstrual cycle Migraine headache Nephrolithiasis Type 1 diabetes mellitus Surgical History History of ureter stent Hx of local excision of skin lesion Status post laser lithotripsy of ureteral calculus [place] teeth extracted Family History Father In good health Mother Cardiac disease Social History details: Engaged household members: significant other and family Smoking Status: Never smoker alcohol intake: never Smoking Status: Never smoker alcohol intake frequency: holidays/special occasions only Substance Use Type: does not use Exam Narrative Exam Narrative: GENERAL: patient appears stated age. Well-nourished, well- developed patient, in no distress, not toxic not dyspneic HEAD: Normocephalic. EYES: Pupils equal round and reactive. No scleral icterus. No injection no discharge ENT: Mucous membranes orally slightly dry. No drooling no tongue elevation no trismus no malocclusion NECK: Trachea midline. Non tender CARDIOVASCULAR: Tachycardic without murmurs, gallops, or rubs. RESPIRATORY: Clear to auscultation. Breath sounds equal bilaterally. No wheezes, rales, or rhonchi. GASTROINTESTINAL: Abdomen soft, non-tender, nondistended. EXTREMITIES: No gross deformities. BACK: Nontender without deformity or crepitance. No flank tenderness. NEURO: AOx4. SKIN: Warm and dry PSYCH: Not anxious, is cooperative Initial Vital Signs Initial Vital Signs: Vital Signs Temperature 97.9 F 05/12/20 19:20 Pulse Rate 138 H 05/12/20 19:20 Respiratory Rate 16 05/12/20 19:20 Blood Pressure 128/91 H 05/12/20 19:20 Pulse Oximetry 99 05/12/20 19:20 Course Course Course Narrative: Patient and mother agree for admission. Decision to Admit Date: 05/12/20 Decision to Admit time: 21:00 Orders Ordered: ED Orders 05/12/20 19:43 CBC Auto Diff [Complete Blood Count AUTO DIFF] Stat CMP [Comprehensive Metabolic Panel] Stat Ketones (Beta-Hydroxybutyrate) Stat Lactate (Lactic Acid) Stat Magnesium Stat Test Serum,Qual Stat Procalcitonin Stat 05/12/20 19:50 VBG [Venous Blood Gas] Stat 05/12/20 20:07 Urinalysis and Microscopic Stat 05/12/20 20:52 XR chest 1V Stat COVID19 Stat 05/12/20 21:25 Blood Culture Stat 05/12/20 22:40 Education, smoking cessation ONGOING Acetaminophen (Acetaminophen 325 Mg Tablet) 650 mg PO Q6HR PRN PRN Reason: Fever/Mild Pain (1-3) Dextrose (Dextrose 50 % In Water 25 Gm/50 Ml Syringe) 25 gm IV PRN PRN PRN Reason: Hypoglycemia Diphenhydramine HCl (Diphenhydramine 50 Mg/Ml Vial) 25 mg IV Q6HR PRN PRN Reason: Itching Last Admin: 05/12/20 23:40 Dose: 25 mg Documented by: JONATAN Enoxaparin Sodium (Enoxaparin 40 Mg/0.4 Ml Syringe) 40 mg SUBCUT DAILY BLAISE Sodium Chloride (Normal Saline 0.9%) 1,000 mls @ 200 mls/hr IV CONT BLAISE Last Infusion: 05/13/20 00:22 Dose: 0 mls/hr Documented by: Admin: 05/12/20 23:10 Dose: 200 mls/hr Documented by: MASON Dextrose/Sodium Chloride (Dextrose 5%-0.45% Ns) 1,000 mls @ 150 mls/hr IV CONT BLAISE Last Admin: 05/12/20 23:59 Dose: 150 mls/hr Documented by: JONATAN Insulin Human Regular 100 unit (/ Sodium Chloride) 100 mls @ 6 mls/hr IV TITRATE BLAISE; Protocol Last Titration: 05/13/20 04:12 Dose: 4 mls/hr, 4 mls/hr Documented by: JONATAN Cosigned by: AMANDA Titration: 05/13/20 01:00 Dose: 0.81 mls/hr, 0.81 mls/hr Documented by: JONATAN Cosigned by: AMANDA Titration: 05/13/20 00:22 Dose: 3.2 mls/hr, 3.2 mls/hr Documented by: JONATAN Cosigned by: FREDDY Admin: 05/12/20 23:00 Dose: 6 mls/hr, 6 mls/hr Documented by: JONATAN Cosigned by: GPEREZ Metoclopramide HCl (Metoclopramide 10 Mg/2 Ml Inj) 10 mg IV Q6HR PRN PRN Reason: Nausea And Vomiting Naloxone HCl (Naloxone 0.4 Mg/Ml Vial) 0.2 mg IV Q2MIN PRN PRN Reason: Opiate Reversal Insulin Degludec 200 Unit/Ml (3 Ml) Insulin Pen) 50 unit SUBCUT DAILY [facility] Last Admin: 05/13/20 03:24 Dose: 50 unit Documented by: JONATAN Tramadol HCl (Tramadol 50 Mg Tablet) 50 mg PO QID PRN PRN Reason: Pain, Moderate (4-6) Discontinued Medications Hydromorphone HCl (Hydromorphone 1 Mg Inj) 1 mg IV NOW ONE Stop: 05/12/20 20:57 Last Admin: 05/12/20 21:08 Dose: 1 mg Documented by: AURELIO Sodium Chloride (Normal Saline 0.9%) 1,000 mls @ 1,000 mls/hr IV BOLUS ONE Stop: 05/12/20 21:08 Last Infusion: 05/12/20 21:40 Dose: 0 mls/hr Documented by: Admin: 05/12/20 20:11 Dose: 1,000 mls/hr Documented by: AURELIO Sodium Chloride (Normal Saline 0.9%) 1,000 mls @ 1,000 mls/hr IV BOLUS ONE Stop: 05/12/20 21:49 Last Infusion: 05/12/20 22:39 Dose: 1,000 mls/hr Documented by: Admin: 05/12/20 21:41 Dose: 1,000 mls/hr Documented by: AURELIO INSULIN DRIP PREMIX (Myxredlin Drip Premix) 100 unit in 100 mls @ 6 mls/hr IV TITRATE [facility]; Protocol Last Titration: 05/12/20 22:38 Dose: 6 ml/hr, 6 mls/hr Documented by: AURELIO Cosigned by: NARCISO Admin: 05/12/20 22:00 Dose: 6 ml/hr, 6 mls/hr Documented by: AURELIO Cosigned by: EMILE Potassium Chloride 40 meq/ (Sodium Chloride) 520 mls @ 130 mls/hr IV NOW ONE Stop: 05/13/20 03:51 Last Admin: 05/13/20 00:23 Dose: 130 mls/hr Documented by: JONATAN Cosigned by: FREDDY Insulin Human Regular (Insulin Regular 100 Unit/Ml 3 Ml Vial) 15 unit IV NOW ONE Stop: 05/12/20 20:52 Last Admin: 05/12/20 21:07 Dose: 15 unit Documented by: AURELIO Cosigned by: NARCISO Ondansetron HCl (Ondansetron 4 Mg/2 Ml Inj) 4 mg IV NOW ONE Stop: 05/12/20 20:08 Last Admin: 05/12/20 20:11 Dose: 4 mg Documented by: AURELIO Ondansetron HCl (Ondansetron 4 Mg/2 Ml Inj) 4 mg IV Q8HR PRN PRN Reason: Nausea And Vomiting Reevaluation(s) Reevaluation #1: Heart rate improved after 1st L of normal saline. No hypotension. Patient remains awake alert oriented x4. Steady self gait in hallway to the bathroom and back Time: 21:00 Consultations Consultation #1: Spoke with [facility] hospitalist, will admit. Time: 21:50 Vital Signs Vital signs: Vital Signs - 8 hr 05/12/20 21:00 05/12/20 21:30 Pulse Rate 126 H 127 H Respiratory Rate 15 14 Blood Pressure 148/101 H 111/70 Pulse Oximetry 100 98 Medical Decision Making Differential Diagnosis Differential Diagnosis: DKA Medical Records Medical records reviewed: Yes I reviewed the patient's medical records. Lab Data Lab results reviewed: Yes I reviewed the patient's lab results. Result diagrams: 05/12/20 19:43 05/12/20 23:10 Labs: Lab Results 05/12/20 05/12/20 05/12/20 Range/Units 19:43 19:43 19:43 WBC 6.8 (4.5-11.0) X10^3/uL RBC 4.73 (4.0-5.2) X10^6/uL Hgb 14.7 (12.0-16.0) g/dL Hct 45.0 (36-46) % MCV 95.2 (80-100) fL MCH 31.0 (26-34) PG MCHC 32.6 (30-36) % RDW 12.8 (11.6-14.8) % Plt Count 379 (150-400) X10^3/uL Neut % (Auto) 72.5 (50-75) % Lymph % (Auto) 21.6 L (25-40) % [place] % (Auto) 4.8 (3-14) % Eos % (Auto) 0.2 L (2-4) % Baso % (Auto) 0.9 (0-2) % Neut # (Auto) 4900 (3537-5924) /uL Lymph # (Auto) 1500 (5860-6023) /uL [place] # (Auto) 300 (0-900) /uL Eos # (Auto) 0 (0-450) /uL Baso # (Auto) 100 (0-100) /uL VBG pH (7.33-7.43) VBG pCO2 (45-50) mmHg VBG pO2 (35-45) mmHg VBG HCO3 (23-28) mmol/L VBG Total CO2 (24-29) mmol/L VBG O2 Saturation (70-75) % VBG Base Excess (0-4) mmol/L Sodium 125 L (137-145) mmol/L Potassium 5.1 (3.4-5.1) mmol/L Chloride 89 L (98-107) mmol/L Carbon Dioxide 15 L (22-32) mmol/L BUN 28 H (7-17) mg/dL Creatinine 0.72 (0.52-1.04) mg/dL Estimated GFR > 60.0 (>60) mL/min BUN/Creatinine Ratio 38.9 H (6-22) Glucose 842 H* (70-100) mg/dL Lactate (0.7-2.1) mmol/L Calcium 9.5 (8.4-10.2) mg/dL Magnesium 2.0 (1.6-2.3) mg/dL Total Bilirubin 0.5 (0.2-1.3) mg/dL AST 16 (14-36) IU/L ALT 13 (<35) IU/L Alkaline Phosphatase 193 H (38-126) U/L Total Protein 7.0 (6.3-8.2) g/dL Albumin 4.4 (3.5-5.0) g/dL Globulin 2.6 (1.7-4.1) g/dL Albumin/Globulin Ratio 1.7 (1.0-2.8) Procalcitonin (<0.5) ng/mL Serum , Qual (Negative) Ketones 10.65 H (<0.27) mmol/L SARS-CoV-2 (PCR) (Negative) 05/12/20 05/12/20 05/12/20 Range/Units 19:43 19:43 19:43 WBC (4.5-11.0) X10^3/uL RBC (4.0-5.2) X10^6/uL Hgb (12.0-16.0) g/dL Hct (36-46) % MCV (80-100) fL MCH (26-34) PG MCHC (30-36) % RDW (11.6-14.8) % Plt Count (150-400) X10^3/uL Neut % (Auto) (50-75) % Lymph % (Auto) (25-40) % [place] % (Auto) (3-14) % Eos % (Auto) (2-4) % Baso % (Auto) (0-2) % Neut # (Auto) (7576-0186) /uL Lymph # (Auto) (2390-1407) /uL [place] # (Auto) (0-900) /uL Eos # (Auto) (0-450) /uL Baso # (Auto) (0-100) /uL VBG pH (7.33-7.43) VBG pCO2 (45-50) mmHg VBG pO2 (35-45) mmHg VBG HCO3 (23-28) mmol/L VBG Total CO2 (24-29) mmol/L VBG O2 Saturation (70-75) % VBG Base Excess (0-4) mmol/L Sodium (137-145) mmol/L Potassium (3.4-5.1) mmol/L Chloride (98-107) mmol/L Carbon Dioxide (22-32) mmol/L BUN (7-17) mg/dL Creatinine (0.52-1.04) mg/dL Estimated GFR (>60) mL/min BUN/Creatinine Ratio (6-22) Glucose (70-100) mg/dL Lactate 1.1 (0.7-2.1) mmol/L Calcium (8.4-10.2) mg/dL Magnesium (1.6-2.3) mg/dL Total Bilirubin (0.2-1.3) mg/dL AST (14-36) IU/L ALT (<35) IU/L Alkaline Phosphatase (38-126) U/L Total Protein (6.3-8.2) g/dL Albumin (3.5-5.0) g/dL Globulin (1.7-4.1) g/dL Albumin/Globulin Ratio (1.0-2.8) Procalcitonin < 0.05 (<0.5) ng/mL Serum , Qual Negative (Negative) Ketones (<0.27) mmol/L SARS-CoV-2 (PCR) (Negative) 05/12/20 05/12/20 Range/Units 19:50 20:52 WBC (4.5-11.0) X10^3/uL RBC (4.0-5.2) X10^6/uL Hgb (12.0-16.0) g/dL Hct (36-46) % MCV (80-100) fL MCH (26-34) PG MCHC (30-36) % RDW (11.6-14.8) % Plt Count (150-400) X10^3/uL Neut % (Auto) (50-75) % Lymph % (Auto) (25-40) % [place] % (Auto) (3-14) % Eos % (Auto) (2-4) % Baso % (Auto) (0-2) % Neut # (Auto) (1819-7321) /uL Lymph # (Auto) (5214-5074) /uL [place] # (Auto) (0-900) /uL Eos # (Auto) (0-450) /uL Baso # (Auto) (0-100) /uL VBG pH 7.32 L (7.33-7.43) VBG pCO2 32.8 L (45-50) mmHg VBG pO2 41 (35-45) mmHg VBG HCO3 17 L (23-28) mmol/L VBG Total CO2 78 H (24-29) mmol/L VBG O2 Saturation 73 (70-75) % VBG Base Excess -9.0 L (0-4) mmol/L Sodium (137-145) mmol/L Potassium (3.4-5.1) mmol/L Chloride (98-107) mmol/L Carbon Dioxide (22-32) mmol/L BUN (7-17) mg/dL Creatinine (0.52-1.04) mg/dL Estimated GFR (>60) mL/min BUN/Creatinine Ratio (6-22) Glucose (70-100) mg/dL Lactate (0.7-2.1) mmol/L Calcium (8.4-10.2) mg/dL Magnesium (1.6-2.3) mg/dL Total Bilirubin (0.2-1.3) mg/dL AST (14-36) IU/L ALT (<35) IU/L Alkaline Phosphatase (38-126) U/L Total Protein (6.3-8.2) g/dL Albumin (3.5-5.0) g/dL Globulin (1.7-4.1) g/dL Albumin/Globulin Ratio (1.0-2.8) Procalcitonin (<0.5) ng/mL Serum , Qual (Negative) Ketones (<0.27) mmol/L SARS-CoV-2 (PCR) Negative (Negative) Point of Care Testing Glucose POC 499 Point of care testing: Point of Care Testing Glucose POC 499 Imaging Data Chest x-ray: Radiologist's Impression: [address] [id number] ReportSigned Patient: Sarabjit Jimenes MMR#: [id number]: [id number]:[id number]/Sex: 30 / FDate of Service: 05/12/20Loc: EDAccession Number: [id number] Procedure: XR chest 1V Ordering Provider: José Light MD PROCEDURE: XR CHEST 1V INDICATIONS: cough TECHNIQUE: One view of the chest was acquired. COMPARISON: [facility], , XR CHEST 1V, 03/05/2020, 0:03. FINDINGS: Surgical changes and devices: None. Lungs and pleura: Lungs are clear. No pleural effusions or pneumothorax. Mediastinum: Mediastinal contours appear normal. Heart size is normal. Bones and chest wall: No suspicious bony lesions. Overlying soft tissues appear unremarkable. IMPRESSION: No acute cardiopulmonary abnormality. Dictated by: Luis F Mahmood M.D. on 05/12/2020 at 21:11 Approved by: Luis F Mahmood M.D. on 05/12/2020 at 21:11 [facility] Narrative Medical decision making narrative: No antibiotics at this time. No fever. White cell count normal. Appropriate for admission for DKA though. Discharge Plan Departure Patient Disposition: Admitted As Inpatient Clinical Impression: DKA (diabetic ketoacidoses) Qualifiers: Diabetes mellitus type: other specified (including ANUEL) Diabetes mellitus complication detail: without coma Qualified Code(s): E13.10 - Other specified diabetes mellitus with ketoacidosis without coma Admit Date/Time: 05/12/20 21:51 Admit Provider: Julio Cesar Spicer
[2020-05-12 21:03] LABS: Lactate (Lactic Acid) 1.1 mmol/L (0.7-2.1)
[2020-05-12] MEDS: INSULIN REGULAR 100 UNIT/ML 3 ML VIAL 15 UNIT IV (21:07)
[2020-05-12] MEDS: HYDROMORPHONE 1 MG INJ IV (21:08)
[2020-05-12 21:14] LABS: COVID19 -Nasal RAPID Negative (Negative)
[2020-05-12 21:31] LABS: Procalcitonin < 0.05 ng/mL (<0.5)
[2020-05-12] MEDS: INSULIN DRIP PREMIX 100 UNIT/100 ML PLAST..BAG 6 UNIT IV (22:00)
[2020-05-12] MEDS: INSULIN REGULAR, HUMAN 100 UNIT in SODIUM CHLORIDE 0.9% 100 ML 6 ML IV (23:00)
[2020-05-12] MEDS: SODIUM CHLORIDE 0.9% 1,000 ML 200 ML IV (23:10)
--- NOTE | 2020-05-12 23:30 | PM.HP.1 ---
History of Present Illness History of Present Illness Date Patient Seen: 05/12/20 Time Patient Seen: 23:05 Chief complaint: mom states DKA Narrative: Ms. Sarabjit Jiemnes is a 29-year-old female patient with a history significant for poorly controlled type 1 diabetes, frequent admissions for DKA, migraines and irregular menstruation who presents to the ER complaining of DKA. The patient was seen in the ER 2 days ago on 05/09/2020 with complaints of dehydration, chills and body aches with nausea. She has found that time to have blood sugar 562 without acidosis. She was treated and discharged home she returns today with continued complaints of feeling poorly. The patient reports continued high blood sugars since seen in the ER and has been using insulin as directed.. She reports no fevers or chills, headaches or dizziness, nasal congestion or sore throat. She denies chest pain or palpitations, shortness of breath cough or wheezing. She reports complaints of abdominal pain with nausea without vomiting. She denies complaints of constipation or diarrhea. She reports no urinary symptoms of urgency burning or frequency. She reports having no menstrual periods for over a year. Upon arrival to the ER the patient is afebrile with temperature 97.9?, tachycardic at 138, blood pressure 128/91, respirations of 16 saturating 99% on room air. Chest x-ray is obtained finding no acute cardiopulmonary findings. A CT of the abdomen and pelvis is obtained for right lower quadrant pain finding bladder wall thickening and associated fat stranding suggestive of cystitis with notation of bilateral renal cortical thickening right greater than left felt to be reflective of prior infections, no evidence of acute pyelonephritis. On laboratory analysis the patient has a normal white count at 6.8 with no shift. On chemistry she has a sodium of 125, potassium of 5.1, bicarb of 15, BUN of 28 and creatinine 0.72. Her LFTs are within normal range except for her alkaline phosphatase which is chronically elevated and today is found to be 193. She had a VBG with a pH of 7.32, bicarb of 17 and a base deficit of 9. Her lactic acid is 1.1 procalcitonin is less than 0.05 and ketones are elevated at 10.65. Serum is negative and COVID screening is negative. In the ER the patient received 15 units of insulin following initiation of insulin infusion. The patient received 2 L normal saline bolus, Dilaudid 1 mg IV and Zofran. The patient is admitted to the hospitalist service for DKA. Patient History Medical History DKA (diabetic ketoacidoses) History of pyelonephritis Irregular menstrual cycle Migraine headache Nephrolithiasis Type 1 diabetes mellitus Surgical History History of ureter stent Hx of local excision of skin lesion Status post laser lithotripsy of ureteral calculus Wagoner teeth extracted Family & Social History Family History Father In good health Mother Cardiac disease Social History: household members significant other,family Prior Living Arrangements House Safety & Behavioral: Feels Safe in Current Yes Environment Been Physically Hurt or No Threatened By a Person Suicidal Ideation Description None Suicide Plan Description No Plan Tobacco & Substance use: Smoking Status Never smoker alcohol intake never alcohol intake frequency holiday/special occasion Substance Use Type does not use Meds Home Medications and Allergies Home Medications Medication Instructions Recorded Confirmed Type glucose 4 gram PO Q15M PRN #30 tab 12/12/18 05/12/20 Rx Glucagon Emergency Kit (human) 1 mg SUBCUT DIRECTED 02/16/19 05/12/20 History insulin degludec 50 unit SUBCUT DAILY 11/21/19 05/12/20 History lisinopril 10 mg PO DAILY 02/03/20 05/12/20 History Allergies Allergy/AdvReac Type Severity Reaction Status Date / Time abdalla [ABDALLA] Allergy Intermediate Hives, Verified 05/09/20 13:41 pruritus iodine [IODINE] Allergy Intermediate rash, itchy Verified 05/09/20 13:41 morphine Allergy Intermediate Difficulty Verified 05/09/20 13:41 Breathing shellfish derived Allergy Intermediate rash Verified 05/09/20 13:41 [SHELLFISH DERIVED] adhesive [ADHESIVE] Allergy Unknown tape Verified 05/09/20 13:41 latex [LATEX] Allergy Unknown Hives Verified 05/09/20 13:41 Review of Systems Review of Systems ROS: Yes All systems reviewed with the patient and are negative except as otherwise documented Exam Vital Signs (past 8 hours): - 05/12/20 19:20 05/12/20 19:40 05/12/20 20:00 Temperature 97.9 F Pulse Rate 138 H 134 H 124 H Respiratory Rate 16 11 L 17 Blood Pressure 128/91 H 119/86 139/81 Pulse Oximetry 99 99 99 05/12/20 20:30 05/12/20 21:00 05/12/20 21:30 Temperature Pulse Rate 126 H 126 H 127 H Respiratory Rate 22 15 14 Blood Pressure 135/82 148/101 H 111/70 Pulse Oximetry 100 100 98 05/12/20 22:00 05/12/20 22:30 Temperature 98.8 F Pulse Rate 132 H 134 H Respiratory Rate 13 25 H Blood Pressure 112/64 110/65 Pulse Oximetry 100 97 Oxygen Delivery Method Room Air Oxygen Flow Rate 0 Narrative Exam Narrative: GENERAL APPEARANCE: well developed, underweight female with poor muscle mass who is mildly ill-appearing. HEENT: Normocephalic, PERRLA, conjunctiva clear, EOMs intact without nystagmus, no rhinorrhea, mucous membranes are moist and pink without lesions or exudate. NECK/THYROID: neck supple, nontender, no JVD, no thyromegaly, trachea midline. LYMPH NODES: no cervical or supraclavicular lymphadenopathy. SKIN: Pale skin with pink mucous membranes, warm and dry, multiple small papules upper back without cellulitis rash or tenderness. HEART: Tachycardic heart rate, regular rhythm, S1-S2, no murmur, no rubs or gallops, brisk capillary refill, no edema. LUNGS: clear to auscultation bilaterally, no coarseness crackles or wheezing, no cough present. CHEST: Symmetrical movement, no accessory muscle use, good tidal volume. ABDOMEN: Soft, scaphoid, no distention, no epigastric or abdominal tenderness, no organomegaly, no flank or suprapubic tenderness, active bowel tones. EXTREMITIES: Healing surgical wounds posterior and medial right ankle moves all extremities, strength is 5/5 and symmetrical, no deformities or joint effusions. NEUROLOGIC: AAO x4, no focal neurologic deficits, cranial nerves II-XII grossly intact, sensation remains intact to light touch. PSYCH: cooperative, appropriate with stable behavior, denies depression or thoughts of self-harm. Objective Labs Result Diagrams: 05/12/20 19:43 05/12/20 19:43 Labs: Laboratory Results - last 24 hr 05/12/20 05/12/20 05/12/20 19:43 19:43 19:43 WBC 6.8 RBC 4.73 Hgb 14.7 Hct 45.0 MCV 95.2 MCH 31.0 MCHC 32.6 RDW 12.8 Plt Count 379 Neut % (Auto) 72.5 Lymph % (Auto) 21.6 L [place] % (Auto) 4.8 Eos % (Auto) 0.2 L Baso % (Auto) 0.9 Neut # (Auto) 4900 Lymph # (Auto) 1500 [place] # (Auto) 300 Eos # (Auto) 0 Baso # (Auto) 100 VBG pH VBG pCO2 VBG pO2 VBG HCO3 VBG Total CO2 VBG O2 Saturation VBG Base Excess Sodium 125 L Potassium 5.1 Chloride 89 L Carbon Dioxide 15 L BUN 28 H Creatinine 0.72 Estimated GFR > 60.0 BUN/Creatinine Ratio 38.9 H Glucose 842 H* Lactate Calcium 9.5 Magnesium 2.0 Total Bilirubin 0.5 AST 16 ALT 13 Alkaline Phosphatase 193 H Total Protein 7.0 Albumin 4.4 Globulin 2.6 Albumin/Globulin Ratio 1.7 Procalcitonin Serum , Qual Ketones 10.65 H SARS-CoV-2 (PCR) 05/12/20 05/12/20 05/12/20 19:43 19:43 19:43 WBC RBC Hgb Hct MCV MCH MCHC RDW Plt Count Neut % (Auto) Lymph % (Auto) [place] % (Auto) Eos % (Auto) Baso % (Auto) Neut # (Auto) Lymph # (Auto) [place] # (Auto) Eos # (Auto) Baso # (Auto) VBG pH VBG pCO2 VBG pO2 VBG HCO3 VBG Total CO2 VBG O2 Saturation VBG Base Excess Sodium Potassium Chloride Carbon Dioxide BUN Creatinine Estimated GFR BUN/Creatinine Ratio Glucose Lactate 1.1 Calcium Magnesium Total Bilirubin AST ALT Alkaline Phosphatase Total Protein Albumin Globulin Albumin/Globulin Ratio Procalcitonin < 0.05 Serum , Qual Negative Ketones SARS-CoV-2 (PCR) 05/12/20 05/12/20 19:50 20:52 WBC RBC Hgb Hct MCV MCH MCHC RDW Plt Count Neut % (Auto) Lymph % (Auto) [place] % (Auto) Eos % (Auto) Baso % (Auto) Neut # (Auto) Lymph # (Auto) [place] # (Auto) Eos # (Auto) Baso # (Auto) VBG pH 7.32 L VBG pCO2 32.8 L VBG pO2 41 VBG HCO3 17 L VBG Total CO2 78 H VBG O2 Saturation 73 VBG Base Excess -9.0 L Sodium Potassium Chloride Carbon Dioxide BUN Creatinine Estimated GFR BUN/Creatinine Ratio Glucose Lactate Calcium Magnesium Total Bilirubin AST ALT Alkaline Phosphatase Total Protein Albumin Globulin Albumin/Globulin Ratio Procalcitonin Serum , Qual Ketones SARS-CoV-2 (PCR) Negative Assessment & Plan Assessment & Plan narrative: This is a 30-year-old female patient with frequent recurrent episodes of diabetic ketoacidosis who presents today in DKA. She was seen in the ER 2 days ago for complaints dehydration, chills and body aches with nausea was treated and discharged home she returns today with continued complaints of feeling poorly. 1. Acute diabetic ketoacidosis, in uncontrolled diabetes mellitus type 1, present on admission, active. -last Hemoglobin A1c >14% was sustained 03/04/2020 has been elevated at greater than 14 % since June of 2018 indicative of poor glycemic control. The patient is followed at [facility] resident endocrinology clinic. -patient takes Tresiba 50 mg at 11 a.m., and 7 units of prandial insulin. -Initial blood glucose 842, VBG pH 7.32, HC03 17, base excess -9. Anion gap is 21. COVID-19 negative. The patient has no indication of infection, WBCs are 6.8 without shift. -patient given normal saline bolus and was started on insulin drip in the emergency department. Ordered normal saline 200 cc per 1 blood sugar is less than 200 changed to D5 half-normal saline at 150 cc/hour. -Will check electrolytes including BMP, magnesium every 4 hours. -will titrate insulin drip with electrolyte replacement per protocol. When blood sugars are stable in anion gap closes will start patient on consistent carbohydrate diet and resume patient's routine insulin therapy. 2. Cystitis, acute, present on admission, active. -patient describes fevers and chills, body aches and malaise on evaluation in the ER 2 days ago. The patient returns today with continued symptoms. -patient denies urinary symptoms does report right lower quadrant abdominal pain for which is CT of the abdomen stained which finds bladder wall thickening and associated fat stranding. -no urinalysis sustained 2 days ago and the patient has not yet voided on this admission. Will straight cath if patient is unable to void to obtain sample for urinalysis. -previous urine cultures lb pansensitive E coli as well as yeast. Will await urinalysis prior to starting antibiotics. 3. Gastroparesis, chronic, stable. -patient with initial complaint of nausea without vomiting upon presentation the ER. -patient received Zofran x1 in the ER, ordered Reglan 10 mg IV q.6 as needed for nausea. 4. Neurogenic bladder secondary to autonomic nerve dysfunction secondary to diabetes, chronic, present on admission, stable -patient reports no burning, strong urine smell or hematuria in the setting of neurogenic bladder. -urinalysis is ordered but patient has not yet voided. -ordered bladder scan as needed. 5. Surgical wounds right ankle, healing well, stable. -Patient had surgery on her right ankle on 04/08/2020. -she has surgical wounds posterior and medial ankle, no inflammation or drainage, tender to palpation without swelling. VTE prophylaxis: SCDs, enoxaparin IV fluid: normal saline at 200 cc/hour, when blood sugar less than 200 will change D5 1/2 normal saline at 150 cc per Diet: NPO may have ice chips. Code status: FULL CODE, her surrogate decision maker is her nina Gonzales. The patient is admitted as an inpatient to the ICU for with diabetic ketoacidosis on insulin infusion requiring close monitoring and frequent interventions prevent complications or adverse events.. COVID-19 COVID-19 status: Negative Result date/Date tested (Pos, Neg/Pending): 05/11/20 Scores GCS Alex coma scale eye opening: Spontaneous Alex coma scale verbal response: Orientated Leckrone coma scale motor response: Obey commands Leckrone coma scale total score: 15 Quality VTE Deep Vein Thrombosis/Pulmonary Embolism Present on Admission: No
[2020-05-12 23:34] LABS: BUN Creatinine Ratio 41.7 (6-22); Blood Urea Nitrogen 25 mg/dL (7-17); Calcium 8.9 mg/dL (8.4-10.2); Carbon Dioxide 21 mmol/L (22-32); Chloride 103 mmol/L (98-107); Estimated Glomerular Filt Rate > 60.0 mL/min (>60); Glucose 266 mg/dL (70-100); HEMOLYSIS < 15 (0-50); Phosphorous 2.9 mg/dL (2.5-4.5); Potassium 3.8 mmol/L (3.4-5.1); Sodium 137 mmol/L (137-145)
[2020-05-12] MEDS: diphenhydrAMINE 50 MG/ML VIAL 25 MG IV (23:40)
[2020-05-12] MEDS: DEXTROSE 5%-0.45% NS 1,000 ML 150 ML IV (23:59)
[2020-05-13] VITALS (11 sets, daily range): BP systolic 120–147; BP diastolic 79–88; PULSE 119–135; RESP 16–28; TEMP 36.2–36.7; O2SAT 94–99
[2020-05-13] MEDS: POTASSIUM CHLORIDE 40 MEQ in SODIUM CHLORIDE 0.9% 500 ML 130 ML IV (00:23)
[2020-05-13 01:23] LABS: Bacteria Urine None Seen; WBC Urine None Seen (0-5/HPF)
[2020-05-13 01:25] LABS: Appearance Urine UA CLEAR; Bilirubin Urine UA NEGATIVE (NEGATIVE); Color Urine UA YELLOW; Glucose Urine UA 2+ g/dL (Negative); Ketones Urine UA 2+ (NEGATIVE); Leukocyte Esterase Urine UA NEGATIVE (NEGATIVE); Nitrite Urine UA NEGATIVE (Negative); Occult Blood Urine UA 1+ (Negative); Protein Urine UA 1+ (Negative); Urobilinogen Urine UA 0.2 E.U./dL (0.2)
[2020-05-13 01:31] LABS: pH Urine UA 5.5 (4.5-8.0)
[2020-05-13 01:32] LABS: Culture Indicated Urine Cult Not Indicated; RBC Urine 0-1/HPF (0-5/HPF); Squamous Epithelial Cell Urine 0-1 /HPF (0-5/HPF)
--- NOTE | 2020-05-13 03:11 | PC.ADMIT ---
Addendum entered by Jasmine Olivares R.N. 05/13/20 06:12: 0600 CBG 253 - SHARYN Ackerman aware. Orders to stop insulin GTT and IVF. Will recheck CBG in one hour. Original Note: [email or web address] Admission Note: The patient,Sarabjit Jimenes,30 y/o, was given written information regarding hospital policies, unit procedures and contact persons. Patient's smoking status: Never smoker. Vital Signs - 8 hr 05/12/20 19:20 05/12/20 19:40 05/12/20 20:00 Temperature 97.9 F Pulse Rate 138 H 134 H 124 H Respiratory Rate 16 11 L 17 Blood Pressure 128/91 H 119/86 139/81 Pulse Oximetry 99 99 99 05/12/20 20:30 05/12/20 21:00 05/12/20 21:30 Temperature Pulse Rate 126 H 126 H 127 H Respiratory Rate 22 15 14 Blood Pressure 135/82 148/101 H 111/70 Pulse Oximetry 100 100 98 05/12/20 22:00 05/12/20 22:30 05/12/20 23:22 Temperature 98.8 F Pulse Rate 132 H 134 H 125 H Respiratory Rate 13 25 H 21 Blood Pressure 112/64 110/65 Pulse Oximetry 100 97 05/12/20 23:30 05/13/20 00:00 05/13/20 00:06 Temperature 97.8 F Pulse Rate 130 H 135 H 134 H Respiratory Rate 38 H 28 H 28 H Blood Pressure 120/79 120/79 Pulse Oximetry 98 98 05/13/20 00:30 05/13/20 01:00 05/13/20 01:30 Temperature Pulse Rate 129 H 127 H 119 H Respiratory Rate Blood Pressure 124/81 Pulse Oximetry 96 98 99 05/13/20 02:00 05/13/20 02:30 Temperature Pulse Rate 122 H 122 H Respiratory Rate Blood Pressure 147/88 H Pulse Oximetry 98 99 2330 Patient awake, A/O in NAD at start of shift. Insulin gtt infusing per orders. Denies pain. Denies N/V. Tele ST up to 135. Oriented to room, call light and plan of care. Verbalized understanding. 0300 Insulin GTT continued per protocol. Last CBG 174, Krider infusing for K+ 3.8. IVF D51/2NS @ 150mL/hour. Ate a turkey sandwich and string cheese - plan to administer home SQ insulin and turn off insulin and IVF around 0500. Patient c/o itching and requests more benadryl. Crying and moaning in room. SHARYN Ackerman aware.
[2020-05-13] MEDS: INSULIN DEGLUDEC 200 UNIT/ML SUBCUT (03:24)
[2020-05-13] MEDS: INSULIN SUBCUT (03:24)
[2020-05-13 05:17] LABS: Add Manual Diff / Slide Review NO; Basophils Absolute Auto 100 /uL (0-100); Eosinophils Absolute Auto 100 /uL (0-450); Hematocrit 39.3 % (36-46); Hemoglobin 13.1 g/dL (12.0-16.0); Hemoglobin A1C% w Est Avg Glu > 14.0 % (4.0-6.0); Lymphocytes Absolute Auto 2100 /uL (1100-4500); Lymphocytes Percent Auto 29.7 % (25-40); Mean Corpuscular HGB Conc 33.3 % (30-36); Mean Corpuscular Hemoglobin 30.3 PG (26-34); Mean Corpuscular Volume 90.9 fL (80-100); Monocytes Absolute Auto 500 /uL (0-900); Monocytes Percent Auto 7.3 % (3-14); Neutrophils Absolute Auto 4300 /uL (1500-7000); Platelet Count 334 X10^3/uL (150-400); Red Blood Cell Count 4.32 X10^6/uL (4.0-5.2); Red Cell Distribution Width 12.8 % (11.6-14.8)
[2020-05-13 05:20] LABS: BUN Creatinine Ratio 31.3 (6-22); Blood Urea Nitrogen 21 mg/dL (7-17); Calcium 8.7 mg/dL (8.4-10.2); Carbon Dioxide 24 mmol/L (22-32); Chloride 106 mmol/L (98-107); Estimated Glomerular Filt Rate > 60.0 mL/min (>60); Glucose 276 mg/dL (70-100); HEMOLYSIS < 15 (0-50); Magnesium 1.7 mg/dL (1.6-2.3); Potassium 4.4 mmol/L (3.4-5.1); Sodium 137 mmol/L (137-145)
[2020-05-13] MEDS: diphenhydrAMINE 50 MG/ML VIAL 25 MG IV (06:26)
[2020-05-13] MEDS: ACETAMINOPHEN 325 MG TABLET 650 MG PO (07:46)
[2020-05-13] MEDS: TRAMADOL 50 MG TABLET PO (07:46)
[2020-05-13] MEDS: INSULIN ASPART 100 UNIT/ML INSULN PEN 7 UNIT SUBCUT ×2 (08:22→12:17)
--- NOTE | 2020-05-13 09:27 | P.DS_ITS ---
History of Present Illness History of Present Illness Date Patient Seen: 05/13/20 Time Patient Seen: 09:28 Date of Onset of Symptoms: 05/12/20 Chief complaint: mom states DKA Narrative: Ms. Sarabjit Jimenes is a 29-year-old female patient with a history significant for poorly controlled type 1 diabetes, frequent admissions for DKA, migraines and irregular menstruation who presents to the ER complaining of DKA. The patient was seen in the ER 2 days ago on 05/09/2020 with complaints of dehydration, chills and body aches with nausea. She has found that time to have blood sugar 562 without acidosis. She was treated and discharged home she returns today with continued complaints of feeling poorly. The patient reports continued high blood sugars since seen in the ER and has been using insulin as directed.. She reports no fevers or chills, headaches or dizziness, nasal congestion or sore throat. She denies chest pain or palpitations, shortness of breath cough or wheezing. She reports complaints of abdominal pain with nausea without vomiting. She denies complaints of constipation or diarrhea. She reports no urinary symptoms of urgency burning or frequency. She reports having no menstrual periods for over a year. Upon arrival to the ER the patient is afebrile with temperature 97.9?, tachycardic at 138, blood pressure 128/91, respirations of 16 saturating 99% on room air. Chest x-ray is obtained finding no acute cardiopulmonary findings. A CT of the abdomen and pelvis is obtained for right lower quadrant pain finding bladder wall thickening and associated fat stranding suggestive of cystitis with notation of bilateral renal cortical thickening right greater than left felt to be reflective of prior infections, no evidence of acute pyelonephritis. On laboratory analysis the patient has a normal white count at 6.8 with no shift. On chemistry she has a sodium of 125, potassium of 5.1, bicarb of 15, BUN of 28 and creatinine 0.72. Her LFTs are within normal range except for her alkaline phosphatase which is chronically elevated and today is found to be 193. She had a VBG with a pH of 7.32, bicarb of 17 and a base deficit of 9. Her lactic acid is 1.1 procalcitonin is less than 0.05 and ketones are elevated at 10.65. Serum is negative and COVID screening is negative. In the ER the patient r eceived 15 units of insulin following initiation of insulin infusion. The patient received 2 L normal saline bolus, Dilaudid 1 mg IV and Zofran. The patient is admitted to the hospitalist service for DKA. Discharge Providers Provider Date of admission: 05/12/20 21:51 Discharge Date: 05/13/20 Consults: 05/12/20 22:40 Consult to Discharge Planning Routine Comment: Discharge provider: Sara Dubon MD Summary Hospital Course Discharge Diagnosis: 1. Acute diabetic ketoacidosis, in uncontrolled diabetes mellitus type 1, present on admission, active. 2. Cystitis, acute, present on admission, active. 3. Gastroparesis, chronic, stable. 4. Neurogenic bladder secondary to autonomic nerve dysfunction secondary to diabetes, chronic, present on admission, stable 5. Surgical wounds right ankle, healing well, stable. 6. Chronic Sinus Tachycardia Hospital Course: This is a 30-year-old female patient with frequent recurrent episodes of diabetic ketoacidosis who presented in DKA. She was seen in the ER 2 days prior for complaints of dehydration, chills and body aches with nausea, was treated an d discharged home. She returned the next day with continued complaints of feeling poorly. 1. Acute diabetic ketoacidosis, in uncontrolled diabetes mellitus type 1, present on admission, active. -last Hemoglobin A1c >14% was sustained 03/04/2020 has been elevated at greater than 14 % since June of 2018 indicative of poor glycemic control. The patient is followed at [facility] endocrinology clinic. -patient takes Tresiba 50 mg at 11 a.m., and 7 units of prandial insulin. -Initial blood glucose 842, VBG pH 7.32, HC03 17, base excess -9. Anion gap is 21. COVID-19 negative. The patient has no indication of infection, WBCs were 6.8 without shift. -patient given normal saline bolus and was started on insulin drip in the emergency department. Then she was given normal saline 200 cc per 1 blood sugar is less than 200 changed to D5 half-normal saline at 150 cc/hour. -her blood sugars dropped into the 200's, she resumed her home insullin and began eating will. -She begged to go home this morning, stating that she felt normal and was eating normal and her sugars are at her baseline. She also says that the observed ST of persistent HR in the 120's is chronic. -Her electrolytes normalized this morning. No triggering event/infection for the DKA has been found. 2. Cystitis, acute, present on admission, active. -patient describes fevers and chills, body aches and malaise on evaluation in the ER 2 days ago. The patient returns today with continued symptoms. -patient denies urinary symptoms does report right lower quadrant abdominal pain for which is CT of the abdomen stained which finds bladder wall thickening and associated fat stranding. -no urinalysis obtained 2 days ago and the UA today shows no infection -no antibiotics indicated 3. Gastroparesis, chronic, stable. -patient with initial complaint of nausea without vomiting upon presentation the ER. -patient received Zofran x1 in the ER, given Reglan 10 mg IV q.6 as needed for nausea. 4. Neurogenic bladder secondary to autonomic nerve dysfunction secondary to diabetes, chronic, present on admission, stable -patient reports no burning, strong urine smell or hematuria in the setting of neurogenic bladder. -urinalysis is negative for UTI today 5. Surgical wounds right ankle, healing well, stable. -Patient had surgery on her right ankle on 04/08/2020. -she has surgical wounds posterior and medial ankle, no inflammation or drainage, tender to palpation without swelling. 6. Chronic Tachycardia -patent reports a resting stable HR at home of 105 - 130 -Defer further evaluation to Dr. Limon -No signs of pericardial effusion, pericarditis, hyperthyroidism, acute infection or other toxicity Code status: FULL CODE, her surrogate decision maker is her nina Gonzales. Exam Vital Signs (past 8 hours): - 05/13/20 01:30 05/13/20 02:00 05/13/20 02:30 Temperature Pulse Rate 119 H 122 H 122 H Respiratory Rate Blood Pressure 147/88 H Pulse Oximetry 99 98 99 05/13/20 03:00 05/13/20 03:30 05/13/20 04:00 Temperature 97.2 F L Pulse Rate 122 H 122 H 121 H Respiratory Rate Blood Pressure 144/80 H 139/81 Pulse Oximetry 97 94 95 05/13/20 08:00 Temperature 98.1 F Pulse Rate 124 H Respiratory Rate 16 Blood Pressure 133/83 Pulse Oximetry 95 Oxygen Delivery Method Room Air Oxygen Flow Rate 0 Narrative Exam Narrative: Alert and oriented x3. She is quite tearful, anxious and demanding to go home immediately. ?I want to be in my own bed.? Heart is tachycardic with regular rhythm and no murmur Lungs are clear to auscultation bilaterally Abdomen is soft, bowel sounds positive, nontender, no organomegaly No skin rash No ankle edema. Objective Labs Result Diagrams: 05/13/20 05:00 05/13/20 05:00 Labs: Laboratory Results - last 24 hr 05/12/20 05/12/20 05/12/20 19:43 19:43 19:43 WBC 6.8 RBC 4.73 Hgb 14.7 Hct 45.0 MCV 95.2 MCH 31.0 MCHC 32.6 RDW 12.8 Plt Count 379 Neut % (Auto) 72.5 Lymph % (Auto) 21.6 L [place] % (Auto) 4.8 Eos % (Auto) 0.2 L Baso % (Auto) 0.9 Neut # (Auto) 4900 Lymph # (Auto) 1500 [place] # (Auto) 300 Eos # (Auto) 0 Baso # (Auto) 100 VBG pH VBG pCO2 VBG pO2 VBG HCO3 VBG Total CO2 VBG O2 Saturation VBG Base Excess Sodium 125 L Potassium 5.1 Chloride 89 L Carbon Dioxide 15 L BUN 28 H Creatinine 0.72 Estimated GFR > 60.0 BUN/Creatinine Ratio 38.9 H Glucose 842 H* Hemoglobin A1c Lactate Calcium 9.5 Phosphorus Magnesium 2.0 Total Bilirubin 0.5 AST 16 ALT 13 Alkaline Phosphatase 193 H Total Protein 7.0 Albumin 4.4 Globulin 2.6 Albumin/Globulin Ratio 1.7 Procalcitonin Serum , Qual Urine Color Urine Appearance Urine pH Ur Specific [place] Urine Protein Urine Glucose (UA) Urine Ketones Urine Occult Blood Urine Nitrate Urine Bilirubin Urine Urobilinogen Ur Leukocyte Esterase Urine RBC Urine WBC Ur Squamous Epith Cells Urine Bacteria Ur Culture Indicated? Nasal Screen MRSA (PCR) Ketones 10.65 H SARS-CoV-2 (PCR) 05/12/20 05/12/20 05/12/20 19:43 19:43 19:43 WBC RBC Hgb Hct MCV MCH MCHC RDW Plt Count Neut % (Auto) Lymph % (Auto) [place] % (Auto) Eos % (Auto) Baso % (Auto) Neut # (Auto) Lymph # (Auto) [place] # (Auto) Eos # (Auto) Baso # (Auto) VBG pH VBG pCO2 VBG pO2 VBG HCO3 VBG Total CO2 VBG O2 Saturation VBG Base Excess Sodium Potassium Chloride Carbon Dioxide BUN Creatinine Estimated GFR BUN/Creatinine Ratio Glucose Hemoglobin A1c Lactate 1.1 Calcium Phosphorus Magnesium Total Bilirubin AST ALT Alkaline Phosphatase Total Protein Albumin Globulin Albumin/Globulin Ratio Procalcitonin < 0.05 Serum , Qual Negative Urine Color Urine Appearance Urine pH Ur Specific [place] Urine Protein Urine Glucose (UA) Urine Ketones Urine Occult Blood Urine Nitrate Urine Bilirubin Urine Urobilinogen Ur Leukocyte Esterase Urine RBC Urine WBC Ur Squamous Epith Cells Urine Bacteria Ur Culture Indicated? Nasal Screen MRSA (PCR) Ketones SARS-CoV-2 (PCR) 05/12/20 05/12/20 05/12/20 19:50 20:52 22:40 WBC RBC Hgb Hct MCV MCH MCHC RDW Plt Count Neut % (Auto) Lymph % (Auto) [place] % (Auto) Eos % (Auto) Baso % (Auto) Neut # (Auto) Lymph # (Auto) [place] # (Auto) Eos # (Auto) Baso # (Auto) VBG pH 7.32 L VBG pCO2 32.8 L VBG pO2 41 VBG HCO3 17 L VBG Total CO2 78 H VBG O2 Saturation 73 VBG Base Excess -9.0 L Sodium Potassium Chloride Carbon Dioxide BUN Creatinine Estimated GFR BUN/Creatinine Ratio Glucose Hemoglobin A1c Lactate Calcium Phosphorus Magnesium Total Bilirubin AST ALT Alkaline Phosphatase Total Protein Albumin Globulin Albumin/Globulin Ratio Procalcitonin Serum , Qual Urine Color Urine Appearance Urine pH Ur Specific [place] Urine Protein Urine Glucose (UA) Urine Ketones Urine Occult Blood Urine Nitrate Urine Bilirubin Urine Urobilinogen Ur Leukocyte Esterase Urine RBC Urine WBC Ur Squamous Epith Cells Urine Bacteria Ur Culture Indicated? Nasal Screen MRSA (PCR) Negative for mrsa Ketones SARS-CoV-2 (PCR) Negative 05/12/20 05/13/20 05/13/20 23:10 01: 05:00 WBC 7.0 RBC 4.32 Hgb 13.1 Hct 39.3 MCV 90.9 D MCH 30.3 MCHC 33.3 RDW 12.8 Plt Count 334 Neut % (Auto) 61.0 Lymph % (Auto) 29.7 [place] % (Auto) 7.3 Eos % (Auto) 1.0 L Baso % (Auto) 1.0 Neut # (Auto) 4300 Lymph # (Auto) 2100 [place] # (Auto) 500 Eos # (Auto) 100 Baso # (Auto) 100 VBG pH VBG pCO2 VBG pO2 VBG HCO3 VBG Total CO2 VBG O2 Saturation VBG Base Excess Sodium 137 D Potassium 3.8 D Chloride 103 Carbon Dioxide 21 L BUN 25 H Creatinine 0.60 Estimated GFR > 60.0 BUN/Creatinine Ratio 41.7 H Glucose 266 H D Hemoglobin A1c Lactate Calcium 8.9 Phosphorus 2.9 D Magnesium Total Bilirubin AST ALT Alkaline Phosphatase Total Protein Albumin Globulin Albumin/Globulin Ratio Procalcitonin Serum , Qual Urine Color Yellow Urine Appearance Clear Urine pH 5.5 Ur Specific [place] 1.010 Urine Protein 1+ H Urine Glucose (UA) 2+ H Urine Ketones 2+ H Urine Occult Blood 1+ H Urine Nitrate Negative Urine Bilirubin Negative Urine Urobilinogen 0.2 Ur Leukocyte Esterase Negative Urine RBC 0-1/hpf Urine WBC None seen Ur Squamous Epith Cells 0-1 /hpf Urine Bacteria None seen Ur Culture Indicated? Cult not indicated Nasal Screen MRSA (PCR) Ketones SARS-CoV-2 (PCR) 05/13/20 05/13/20 05:00 05:00 WBC RBC Hgb Hct MCV MCH MCHC RDW Plt Count Neut % (Auto) Lymph % (Auto) [place] % (Auto) Eos % (Auto) Baso % (Auto) Neut # (Auto) Lymph # (Auto) [place] # (Auto) Eos # (Auto) Baso # (Auto) VBG pH VBG pCO2 VBG pO2 VBG HCO3 VBG Total CO2 VBG O2 Saturation VBG Base Excess Sodium 137 Potassium 4.4 Chloride 106 Carbon Dioxide 24 BUN 21 H Creatinine 0.67 Estimated GFR > 60.0 BUN/Creatinine Ratio 31.3 H Glucose 276 H Hemoglobin A1c > 14.0 H Lactate Calcium 8.7 Phosphorus Magnesium 1.7 Total Bilirubin AST ALT Alkaline Phosphatase Total Protein Albumin Globulin Albumin/Globulin Ratio Procalcitonin Serum , Qual Urine Color Urine Appearance Urine pH Ur Specific [place] Urine Protein Urine Glucose (UA) Urine Ketones Urine Occult Blood Urine Nitrate Urine Bilirubin Urine Urobilinogen Ur Leukocyte Esterase Urine RBC Urine WBC Ur Squamous Epith Cells Urine Bacteria Ur Culture Indicated? Nasal Screen MRSA (PCR) Ketones SARS-CoV-2 (PCR) [facility] Medical History DKA (diabetic ketoacidoses) History of pyelonephritis Irregular menstrual cycle Migraine headache Nephrolithiasis Type 1 diabetes mellitus Surgical History History of ureter stent Hx of local excision of skin lesion Status post laser lithotripsy of ureteral calculus [place] teeth extracted Family History Father In good health Mother Cardiac disease Social History details: Engaged household members: significant other and family Smoking Status: Never smoker alcohol intake: never Discharge Plan Discharge Plan Patient Disposition: Home Provider Discharge Comment: Follow up with Dr. Limon in [place] in 1-2 weeks Discharge orders & Medications Prescriptions: Continued glucose 4 gram tablet,chewable 4 gram PO Q15M PRN (Reason: hypoglycemia) Qty: 30 RF: 0 Glucagon Emergency Kit (human) 1 mg recon soln 1 mg subcut DIRECTED RF: 0 insulin degludec 200 unit/mL (3 mL) Insulin Pen 50 unit SUBCUT DAILY RF: 0 lisinopril 10 mg tablet 10 mg PO DAILY RF: 0 Diet/Activity/Treatments Diet: Carb-consistent/Diabetic Quality VTE Deep Vein Thrombosis/Pulmonary Embolism Present on Admission: No
--- NOTE | 2020-05-13 09:33 | PC.NURSE ---
Addendum entered by Lisette Zarco R.N. 05/13/20 12:50: BG 408, covered with total 12 units Novolog, ate 50% of her lunch. She is tearful, saying I just want to go home. Mother arrived, discharge papers already arranged, given with instructions. All belongings with her, WC to car. Addendum entered by Lisette Zarco R.N. 05/13/20 11:19: Remains ST around 120, MD aware, patient denies palpitations, dizziness, or chest discomfort. Addendum entered by Lisette Zarco R.N. 05/13/20 11:16: 10 units Novolog x1 given per order for BG 339. Ate 50% of breakfast without nausea, has voided and had medium BM. Patient is not tearful at this time, denies pain. Original Note: Day Shift Note-Patient is very tearful, c/o back pain, declined ice pack, Tylenol and Tramadol given per prn order. Insulin gtt still off, 7 units SQ Novolog given 1x order, declined Lovenox injection. ST 110-120s, other VSS.
[2020-05-13] MEDS: INSULIN ASPART 100 UNIT/ML INSULN PEN 10 UNIT SUBCUT (11:11)
[2020-05-13] MEDS: INSULIN ASPART 100 UNIT/ML INSULN PEN SUBCUT (12:17)
--- NOTE | 2020-05-13 14:16 | CM.DPC ---
DCP/Assessment: Reviewed chart. Patient is a 30yr old female admitted to [facility] with DKA. PCP is Dr. Limon. Primary payor is 1)[facility] 2)Medicaid. Met with patient explained CM/SW role. 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 Patient with h/o DKA related to diabetes type I. Patient alert and oriented resting in bed at time of visit. Patient reports that she hopes to d/c home today. Patient denies any d/c planning needs. Patient reports that underwent right ankle surgery in March at [facility]. Patient indicates that her Mother will be providing transport home. Patient denies any needs. P: Home today. RAYMOND Valladares Discharge Planning/Care Management CM Discharge Assessment Start: 05/13/20 14:10 Freq: Status: Active Protocol: Document 05/13/20 14:10 KJS (Rec: 05/13/20 14:16 KJS [id number]) Discharge Planning Assessment Assigned Preservative Filler Machine Operator RAYMOND Valladares Contact Information Argelia Jimenes (Mother) ph# Advance Directives? No Advance Directives on File No History Provided By Patient,Medical Record Prior Living Arrangements House Household Members significant other,family Independent with ADL's Yes Is patient alert and oriented? Yes Caregiver for Another No Barriers to Discharge No Comment Patient reports new PCP is Dr. Limon at [facility] ph# [phone]. Discharge Plan Home Transportation Arrangement Family to provide transport at time of d/c. Referrals Initiated Other Whiteboard Updated in Patient Room with Yes name and ext. # of Preservative Filler Machine Operator Review Status In Process Next Review Type Continued Stay Review
--- NOTE | 2020-05-17 18:12 | PC.NURSE ---
Late Entry; Potassium infusion initiated 05/13 at 00:23, complete at 04:24.
[2020-05-27 12:43] LABS: Total CO2 VBG 18 mmol/L (24-29)
== END 2020-05-13 12:50 | disposition home or self-care (01) ==
LOC: ED 20:57 → ICU 05-13 08:34 → AC 05-23 15:05 → ICU 05-23 15:05
PROVIDERS: Admitting Provider Nurse Practitioner Adult Health; Emergency Provider Emergency Medicine; Referring Provider Emergency Medicine; Visit Provider Nurse Practitioner Adult Health
DX: E10.10 Type 1 diabetes mellitus with ketoacidosis without coma (principal); E10.65 Type 1 diabetes mellitus with hyperglycemia; E10.43 Type 1 diabetes mellitus with diabetic autonomic (poly)neuropathy; N30.00 Acute cystitis without hematuria; R00.0 Tachycardia, unspecified; N31.9 Neuromuscular dysfunction of bladder, unspecified; K31.84 Gastroparesis; N31.8 Other neuromuscular dysfunction of bladder; Z79.4 Long term (current) use of insulin; Z20.822 Contact with and (suspected) exposure to COVID-19; Z79.899 Other long term (current) drug therapy
CPT/HCPCS: 36415; 71045; 80048; 80053; 81001; 82009; 82805; 82962; 83036; 83605; 83735; 84100; 84145; 84703; 85025; 87040; 87635; 87797; 96361; 96372; 96374; 96375; 96376; 99283; 99284; C9803; G0378; J1170; J1200; J1650; J2405; J3480

== ENCOUNTER 2020-05-19 17:52 | Observation (INO) | payer OTHER, MEDICAID, SELFPAY ==
[2020-05-12 22:24] VITALS: BMI 16.8
[2020-05-19 18:00] VITALS: BP 130/93; PULSE 130; RESP 20; TEMP 36.6; O2SAT 96; BMI 16.9
--- NOTE | 2020-05-19 18:42 | ED.BACK ---
HPI - Back Pain/Injury General Chief Complaint: Back Pain/Injury Stated Complaint: pain all over Time Seen by Provider: 05/19/20 18:04 Source: patient Mode of arrival: Ambulatory Limitations: no limitations History of Present Illness HPI Narrative: 30F nonsmoker with history of DM and frequent hospitalizations for DKA presents with her mother and the chief complaint of all over body pain. She denies any change in medications or missing doses. She denies recent fever, chills, N/V. She presents under similar circumstances of DKA. She denies known exposure to COVID. She's had no JUAREZ, sore throat, cough, CP. She has felt lightheaded. She complains of widespread full body pain that is worsened by minimal contact or movement. Related Data Home Medications Medication Instructions Recorded Confirmed Glucagon Emergency Kit (human) 1 mg SUBCUT DIRECTED 02/16/19 05/19/20 insulin degludec 50 unit SUBCUT DAILY 11/21/19 05/19/20 lisinopril 10 mg PO DAILY 02/03/20 05/19/20 Previous Rx's Medication Instructions Recorded glucose 4 gram PO Q15M PRN #30 tab 12/12/18 Allergies Allergy/AdvReac Type Severity Reaction Status Date / Time abdalla [ABDALLA] Allergy Intermediate Hives, Verified 05/19/20 18:09 pruritus iodine [IODINE] Allergy Intermediate rash, itchy Verified 05/19/20 18:09 morphine Allergy Intermediate Difficulty Verified 05/19/20 18:09 Breathing shellfish derived Allergy Intermediate rash Verified 05/19/20 18:09 [SHELLFISH DERIVED] adhesive [ADHESIVE] Allergy Unknown tape Verified 05/19/20 18:09 latex [LATEX] Allergy Unknown Hives Verified 05/19/20 18:09 Review of Systems Constitutional Constitutional: Reports body ache(s), Denies chills, Reports fatigue, Denies fever(s), Denies frequent falls, Denies lethargy and Reports weakness Eyes Eyes: Denies change in vision, Denies eye discharge, Denies irritation and Denies loss of vision ENT Ears, Nose, Mouth, and Throat: Denies change in voice, Denies dizziness, Denies neck pain, Denies sore throat and Denies throat swelling Cardiovascular Cardiovascular: Denies chest pain, Denies irregular heart rhythm, Denies lightheadedness, Denies palpitations, Denies dyspnea, Denies dyspnea on exertion and Denies orthopnea Respiratory Respiratory: Denies cough, Denies dyspnea, Denies dyspnea on exertion and Denies wheezing Gastrointestinal Gastrointestinal: Denies abdominal pain, Denies change in bowel habits, Denies diarrhea, Reports nausea and Denies vomiting Musculoskeletal Musculoskeletal: Reports back pain, Reports myalgias, Reports arthralgias, Reports myalgias, Denies neck pain and Denies numbness Integumentary/Breasts Skin/Breast: Denies pruritus, Denies erythema, Denies rash and Denies wounds Neurologic Neurologic: Denies behavioral changes, Denies confusion, Denies dizziness, Denies frequent falls, Denies loss of vision, Denies numbness and Reports weakness Psychiatric Psychiatric: Denies anxiety, Denies behavioral changes, Denies confusion, Denies depression, Denies homicidal ideation and Denies suicidal ideation Endocrine Endocrine: Reports fatigue, Denies flushing and Denies palpitations Hematologic/Lymphatic Hematologic/Lymphatic: Denies easy bruising Allergic/Immunologic Allergic/Immunologic: Denies urticaria, Denies throat swelling and Denies wheezing Patient History Medical History (Updated 05/20/20 @ 01:10 by Teddy Yap DO) DKA (diabetic ketoacidoses) History of pyelonephritis Irregular menstrual cycle Migraine headache Nephrolithiasis Type 1 diabetes mellitus Surgical History History of ureter stent Hx of local excision of skin lesion Status post laser lithotripsy of ureteral calculus [place] teeth extracted Family History Father In good health Mother Cardiac disease Social History details: Engaged household members: significant other and family Smoking Status: Never smoker alcohol intake: never Smoking Status: Never smoker alcohol intake frequency: holidays/special occasions only Substance Use Type: does not use Exam Narrative Exam Narrative: GENERAL: [30] year old patient appears stated age. Very thin, crying, anxious, tearful, clearly in pain. Minimal motion or palpation results in significant pain HEAD: Atraumatic. Normocephalic. EYES: Pupils equal round and reactive. Extraocular motions intact. No scleral icterus. No injection or drainage. ENT: Dry mucous membranes. Nose without bleeding, purulent drainage. Throat without erythema, tonsillar hypertrophy or exudate. Airway patent. NECK: Trachea midline. Non tender CARDIOVASCULAR:Tachycardic, but regular rhythm without murmurs, gallops, or rubs. RESPIRATORY: Clear to auscultation. Breath sounds equal bilaterally. No wheezes, rales, or rhonchi. GASTROINTESTINAL: Abdomen soft, generally tender, nondistended. Bowel sounds present in all 4 quadrants EXTREMITIES: No edema or joint tenderness. BACK: Nontender without deformity or crepitance. No flank tenderness. NEURO: AOx3. SKIN: No rash or erythema of visible areas Initial Vital Signs Initial Vital Signs: Vital Signs Temperature 97.8 F 05/19/20 18:00 Pulse Rate 130 H 05/19/20 18:00 Respiratory Rate 20 05/19/20 18:00 Blood Pressure 130/93 H 05/19/20 18:00 Pulse Oximetry 96 05/19/20 18:00 Course Orders Ordered: ED Orders 05/19/20 18:46 EKG-12 Lead Stat 05/19/20 18:53 Complete Blood Count AUTO DIFF Stat Comprehensive Metabolic Panel Stat Ketones (Beta-Hydroxybutyrate) Stat Lactate (Lactic Acid) Stat Procalcitonin Stat 05/19/20 18:54 Venous Blood Gas Stat 05/19/20 20:45 COVID19 Stat Dextrose (Dextrose 50 % In Water 25 Gm/50 Ml Syringe) 25 gm IV PRN PRN PRN Reason: Hypoglycemia Enoxaparin Sodium (Enoxaparin 40 Mg/0.4 Ml Syringe) 40 mg SUBCUT DAILY BLAISE Haloperidol (Haloperidol 5 Mg/Ml Vial) 2 mg IV Q2HR PRN PRN Reason: Agitation INSULIN DRIP PREMIX (Myxredlin Drip Premix) 100 unit in 100 mls @ 6 mls/hr IV TITRATE BLAISE; Protocol Last Titration: 05/19/20 21:37 Dose: 6 mls/hr, 6 mls/hr Documented by: MICHELLE Cosigned by: JUANCARLOS Titration: 05/19/20 21:03 Dose: 0 mls/hr, 0 mls/hr Documented by: SCOTTY Cosigned by: GHAZALA Admin: 05/19/20 19:47 Dose: 6 mls/hr, 6 mls/hr Documented by: SCOTTY Cosigned by: CHRIS Sodium Chloride (Normal Saline 0.9%) 1,000 mls @ 500 mls/hr IV CONT BLAISE Stop: 06/18/20 22:29 Last Admin: 05/19/20 21:13 Dose: 500 mls/hr Documented by: MICHELLE Potassium Chloride 40 meq/ (Sodium Chloride) 520 mls @ 130 mls/hr IV NOW ONE; Protocol Stop: 05/20/20 03:48 Dextrose/Sodium Chloride (Dextrose 5%-0.45% Ns) 1,000 mls @ 150 mls/hr IV CONT BLAISE Naloxone HCl (Naloxone 0.4 Mg/Ml Vial) 0.2 mg IV Q2MIN PRN PRN Reason: Opiate Reversal Ondansetron HCl (Ondansetron 4 Mg/2 Ml Inj) 4 mg IV Q4HR PRN PRN Reason: Nausea And Vomiting Discontinued Medications Haloperidol (Haloperidol 5 Mg/Ml Vial) 2 mg IV NOW ONE Stop: 05/19/20 19:36 Last Admin: 05/19/20 19:43 Dose: 2 mg Documented by: SCOTTY Sodium Chloride (Normal Saline 0.9%) 1,000 mls @ 1,000 mls/hr IV BOLUS ONE Stop: 05/19/20 19:45 Last Infusion: 05/19/20 19:57 Dose: 0 mls/hr Documented by: Admin: 05/19/20 19:05 Dose: 1,000 mls/hr Documented by: SCOTTY Reevaluation(s) Reevaluation #1: significant improvement in pain after Haldol 2mg IV Consultations Consultation #1: hospitalist happy to accept Vital Signs Vital signs: Vital Signs - 8 hr 05/19/20 18:00 05/19/20 19:21 Temperature 97.8 F Pulse Rate 130 H 118 H Respiratory Rate 20 12 Blood Pressure 130/93 H 119/89 Pulse Oximetry 96 98 MDM - Back Pain/Injury Lab Data Result diagrams: 05/19/20 18:53 05/19/20 18:53 Labs: Lab Results 05/19/20 05/19/20 05/19/20 Range/Units 11:07 18:53 18:53 WBC 7.5 (4.5-11.0) X10^3/uL RBC 5.06 (4.0-5.2) X10^6/uL Hgb 15.4 (12.0-16.0) g/dL Hct 46.7 H (36-46) % MCV 92.2 (80-100) fL MCH 30.5 (26-34) PG MCHC 33.1 (30-36) % RDW 13.1 (11.6-14.8) % Plt Count 392 (150-400) X10^3/uL Neut % (Auto) 73.9 (50-75) % Lymph % (Auto) 19.9 L (25-40) % [place] % (Auto) 5.3 (3-14) % Eos % (Auto) 0.1 L (2-4) % Baso % (Auto) 0.8 (0-2) % Neut # (Auto) 5500 (5353-4944) /uL Lymph # (Auto) 1500 (6477-3777) /uL [place] # (Auto) 400 (0-900) /uL Eos # (Auto) 0 (0-450) /uL Baso # (Auto) 100 (0-100) /uL VBG pH (7.33-7.43) VBG pCO2 (45-50) mmHg VBG pO2 (35-45) mmHg VBG HCO3 (23-28) mmol/L VBG Total CO2 (24-29) mmol/L VBG O2 Saturation (70-75) % VBG Base Excess (0-4) mmol/L Sodium 136 L (137-145) mmol/L Potassium 3.1 L D (3.4-5.1) mmol/L Chloride 102 (98-107) mmol/L Carbon Dioxide 31 (22-32) mmol/L BUN 22 H (7-17) mg/dL Creatinine 0.42 L (0.52-1.04) mg/dL Estimated GFR > 60.0 (>60) mL/min BUN/Creatinine Ratio 52.4 H (6-22) Glucose 203 H (70-100) mg/dL Lactate (0.7-2.1) mmol/L Calcium 8.7 (8.4-10.2) mg/dL Total Bilirubin (0.2-1.3) mg/dL AST (14-36) IU/L ALT (<35) IU/L Alkaline Phosphatase (38-126) U/L Total Protein (6.3-8.2) g/dL Albumin (3.5-5.0) g/dL Globulin (1.7-4.1) g/dL Albumin/Globulin Ratio (1.0-2.8) Procalcitonin < 0.05 (<0.5) ng/mL Ketones (<0.27) mmol/L 05/19/20 05/19/20 05/19/20 Range/Units 18:53 18:53 18:54 WBC (4.5-11.0) X10^3/uL RBC (4.0-5.2) X10^6/uL Hgb (12.0-16.0) g/dL Hct (36-46) % MCV (80-100) fL MCH (26-34) PG MCHC (30-36) % RDW (11.6-14.8) % Plt Count (150-400) X10^3/uL Neut % (Auto) (50-75) % Lymph % (Auto) (25-40) % [place] % (Auto) (3-14) % Eos % (Auto) (2-4) % Baso % (Auto) (0-2) % Neut # (Auto) (5946-9376) /uL Lymph # (Auto) (0347-8827) /uL [place] # (Auto) (0-900) /uL Eos # (Auto) (0-450) /uL Baso # (Auto) (0-100) /uL VBG pH 7.43 (7.33-7.43) VBG pCO2 12.1 L (45-50) mmHg VBG pO2 62 H (35-45) mmHg VBG HCO3 8 L (23-28) mmol/L VBG Total CO2 8 L (24-29) mmol/L VBG O2 Saturation 93 H (70-75) % VBG Base Excess -16.0 L (0-4) mmol/L Sodium 125 L D (137-145) mmol/L Potassium 5.1 D (3.4-5.1) mmol/L Chloride 86 L (98-107) mmol/L Carbon Dioxide 23 (22-32) mmol/L BUN 31 H (7-17) mg/dL Creatinine 0.53 (0.52-1.04) mg/dL Estimated GFR > 60.0 (>60) mL/min BUN/Creatinine Ratio 58.5 H (6-22) Glucose 764 H* D (70-100) mg/dL Lactate 1.1 (0.7-2.1) mmol/L Calcium 9.7 (8.4-10.2) mg/dL Total Bilirubin 0.5 (0.2-1.3) mg/dL AST 18 (14-36) IU/L ALT 15 (<35) IU/L Alkaline Phosphatase 256 H (38-126) U/L Total Protein 7.5 (6.3-8.2) g/dL Albumin 4.3 (3.5-5.0) g/dL Globulin 3.2 (1.7-4.1) g/dL Albumin/Globulin Ratio 1.3 (1.0-2.8) Procalcitonin (<0.5) ng/mL Ketones 6.75 H (<0.27) mmol/L Point of Care Testing Glucose POC 120 MDM Narrative Medical decision making narrative: VBG shows respiratory alkalosis with associated metabolic acidosis. ABG bicarb noted to be 8. Anion gap using this CO2 is 31, however serum shows a more appropriate bicarb and gap is then noted to still be elevated at 16. Her serum glucose is over 700. Ketones elevated. She is given fluids and started on insulin drip. Admission to ICU. Her presentation often would suggest some element of mental health playing a role. It would seem reasonable to consider an evaluation if not yet performed on prior visits. Critical Care Time Critical Care Time Critical Care Time: Yes Total Critical Care Time: 30 Attestation: The high probability of a clinically significant, sudden or life threatening deterioration of the [CV/GI] system(s) required my full and direct attention, intervention and personal management. The aggregate critical care time was [30] minutes. This time is in addition to time spent performing reported procedures but includes the following: [x] Data Review and interpretation [x] Patient assessment and monitoring of vital signs [x] Documentation [x] Medication orders and management Discharge Plan Departure Patient Disposition: Admitted As Inpatient Clinical Impression: DKA (diabetic ketoacidoses) Admit Date/Time: 05/19/20 20:22 Admit Provider: Amee Mendez
[2020-05-19 18:58] LABS: HCO3 VBG 8 mmol/L (23-28); Oxygen Saturation VBG 93 % (70-75); PCO2 VBG 12.1 mmHg (45-50); PO2 VBG 62 mmHg (35-45); Total CO2 VBG 8 mmol/L (24-29); pH VBG 7.43 (7.33-7.43)
[2020-05-19 19:02] LABS: Add Manual Diff / Slide Review NO; Basophils Absolute Auto 100 /uL (0-100); Basophils Percent Auto 0.8 % (0-2); Eosinophils Absolute Auto 0 /uL (0-450); Eosinophils Percent Auto 0.1 % (2-4); Hematocrit 46.7 % (36-46); Hemoglobin 15.4 g/dL (12.0-16.0); Lymphocytes Absolute Auto 1500 /uL (1100-4500); Lymphocytes Percent Auto 19.9 % (25-40); Mean Corpuscular HGB Conc 33.1 % (30-36); Mean Corpuscular Hemoglobin 30.5 PG (26-34); Mean Corpuscular Volume 92.2 fL (80-100); Monocytes Absolute Auto 400 /uL (0-900); Monocytes Percent Auto 5.3 % (3-14); Neutrophils Absolute Auto 5500 /uL (1500-7000); Neutrophils Percent Auto 73.9 % (50-75); Platelet Count 392 X10^3/uL (150-400); Red Blood Cell Count 5.06 X10^6/uL (4.0-5.2); Red Cell Distribution Width 13.1 % (11.6-14.8); White Blood Cell Count 7.5 X10^3/uL (4.5-11.0)
[2020-05-19] MEDS: SODIUM CHLORIDE 0.9% 1,000 ML 1000 ML IV (19:05)
--- NOTE | 2020-05-19 19:10 | PC.NURSE ---
patient was brought into the ED today with her mom. She presents with pain all over her body. She has not taken anything for it today. Her mom states that she continues to lose weight and is down to 90 lbs. Mom says that she is able to take small amounts of food but does not eat enough food. Mom states that she noticed scratches on her back. upon inspection she has multiple small red ulcers in multiple stages of healing but denies injury from scratching. Mom stated that her current condition today is worse than other and she continues to get worse over time.
[2020-05-19 19:20] LABS: Alanine Aminotransferase 15 IU/L (<35); Albumin 4.3 g/dL (3.5-5.0); Albumin Globulin Ratio 1.3 (1.0-2.8); Alkaline Phosphatase 256 U/L (38-126); Aspartate Aminotransferase 18 IU/L (14-36); BUN Creatinine Ratio 58.5 (6-22); Bilirubin Total 0.5 mg/dL (0.2-1.3); Blood Urea Nitrogen 31 mg/dL (7-17); Calcium 9.7 mg/dL (8.4-10.2); Carbon Dioxide 23 mmol/L (22-32); Chloride 86 mmol/L (98-107); Estimated Glomerular Filt Rate > 60.0 mL/min (>60); Globulin 3.2 g/dL (1.7-4.1); Lactate (Lactic Acid) 1.1 mmol/L (0.7-2.1); Potassium 5.1 mmol/L (3.4-5.1); Sodium 125 mmol/L (137-145); Total Protein 7.5 g/dL (6.3-8.2)
[2020-05-19 19:21] VITALS: BP 119/89; PULSE 118; RESP 12; O2SAT 98
--- NOTE | 2020-05-19 19:21 | PC.NURSE ---
Patient in pain. Provider is aware and requesting records for her prior pain management care at [facility].
[2020-05-19 19:23] LABS: Ketones (Beta-Hydroxybutyrate) 6.75 mmol/L (<0.27)
[2020-05-19 19:27] LABS: HEMOLYSIS < 15 (0-50)
[2020-05-19 19:31] LABS: Glucose 764 mg/dL (70-100)
[2020-05-19] MEDS: HALOPERIDOL 5 MG/ML VIAL 2 MG IV (19:43)
[2020-05-19] MEDS: INSULIN DRIP PREMIX 100 UNIT/100 ML PLAST..BAG 6 UNIT IV (19:47)
[2020-05-19 20:01] LABS: Procalcitonin < 0.05 ng/mL (<0.5)
[2020-05-19 20:55] VITALS: BP 104/59; PULSE 138; RESP 14; TEMP 36.6; O2SAT 96
--- NOTE | 2020-05-19 20:55 | PM.HP.1 ---
History of Present Illness History of Present Illness Date Patient Seen: 05/19/20 Time Patient Seen: 20:41 Chief complaint: pain all over Narrative: Ms. Sarabjit Jimenes is a 29-year-old female patient with a history significant for poorly controlled type 1 diabetes, frequent admissions for DKA, migraines and irregular menstruation who presents to the ER complaining of DKA. The patient was seen in the ER on 05/09/2020 with complaints of dehydration, chills and body aches with nausea. She has found that time to have blood sugar 562 without acidosis. She was treated and discharged home, then returned on 05/12/2020 and was admitted for DKA. She reports no fevers or chills, headaches or dizziness, nasal congestion or sore throat. She denies chest pain or palpitations, shortness of breath cough or wheezing. She reports complaints of abdominal pain with nausea without vomiting. She denies complaints of constipation or diarrhea. She reports no urinary symptoms of urgency burning or frequency. She reports having no menstrual periods for over a year. Patient History Medical History DKA (diabetic ketoacidoses) History of pyelonephritis Irregular menstrual cycle Migraine headache Nephrolithiasis Type 1 diabetes mellitus Surgical History History of ureter stent Hx of local excision of skin lesion Status post laser lithotripsy of ureteral calculus [place] teeth extracted Family & Social History Family History Father In good health Mother Cardiac disease Social History: household members significant other,family Safety & Behavioral: Feels Safe in Current Yes Environment Been Physically Hurt or No Threatened By a Person Tobacco & Substance use: Smoking Status Never smoker alcohol intake never alcohol intake frequency holiday/special occasion Substance Use Type does not use Meds Home Medications and Allergies Home Medications Medication Instructions Recorded Confirmed Type glucose 4 gram PO Q15M PRN #30 tab 12/12/18 05/19/20 Rx Glucagon Emergency Kit (human) 1 mg SUBCUT DIRECTED 02/16/19 05/19/20 History insulin degludec 50 unit SUBCUT DAILY 11/21/19 05/19/20 History lisinopril 10 mg PO DAILY 02/03/20 05/19/20 History Allergies Allergy/AdvReac Type Severity Reaction Status Date / Time abdalla [ABDALLA] Allergy Intermediate Hives, Verified 05/19/20 18:09 pruritus iodine [IODINE] Allergy Intermediate rash, itchy Verified 05/19/20 18:09 morphine Allergy Intermediate Difficulty Verified 05/19/20 18:09 Breathing shellfish derived Allergy Intermediate rash Verified 05/19/20 18:09 [SHELLFISH DERIVED] adhesive [ADHESIVE] Allergy Unknown tape Verified 05/19/20 18:09 latex [LATEX] Allergy Unknown Hives Verified 05/19/20 18:09 Review of Systems Review of Systems ROS: Yes All systems reviewed with the patient and are negative except as otherwise documented Constitutional Constitutional: Reports body ache(s), Reports daytime sleepiness, Reports fatigue, Reports lethargy, Reports malaise, Reports weakness and Reports weight loss Eyes Eyes: Reports system reviewed and no additional complaints, except as documented ENT Ears, Nose, Mouth, and Throat: Yes system reviewed and no additional complaints, except as documented Cardiovascular Cardiovascular: Reports system reviewed and no additional complaints, except as documented Respiratory Respiratory: Reports system reviewed and no additional complaints, except as documented Gastrointestinal Gastrointestinal: Reports system reviewed and no additional complaints, except as documented Genitourinary Genitourinary: Reports system reviewed and no additional complaints, except as documented Musculoskeletal Musculoskeletal: Reports arthralgias Integumentary/Breasts Skin/Breast: Reports system reviewed and no additional complaints, except as documented Neurologic Neurologic: Reports system reviewed and no additional complaints, except as documented and Reports weakness Psychiatric Psychiatric: Reports system reviewed and no additional complaints, except as documented Endocrine Endocrine: Reports system reviewed and no additional complaints, except as documented and Reports fatigue Hematologic/Lymphatic Hematologic/Lymphatic: Reports system reviewed and no additional complaints, except as documented Allergic/Immunologic Allergic/Immunologic: Reports system reviewed and no additional complaints, except as documented Exam Vital Signs (past 8 hours): - 05/19/20 18:00 05/19/20 19:21 Temperature 97.8 F Pulse Rate 130 H 118 H Respiratory Rate 20 12 Blood Pressure 130/93 H 119/89 Pulse Oximetry 96 98 Oxygen Delivery Method Room Air Narrative Exam Narrative: GENERAL APPEARANCE: well developed, underweight female thin, pale, with poor muscle mass who is mildly ill-appearing, drowsy from medication in ER. HEENT: Normocephalic, PERRLA, conjunctiva clear, EOMs intact without nystagmus, no rhinorrhea, mucous membranes are moist and pink without lesions or exudate. NECK/THYROID: neck supple, nontender, no JVD, no thyromegaly, trachea midline. LYMPH NODES: no cervical or supraclavicular lymphadenopathy. SKIN: Pale skin with pink mucous membranes, warm and dry, multiple small papules upper back without cellulitis rash or tenderness. HEART: Tachycardic heart rate, regular rhythm, S1-S2, no murmur, no rubs or gallops, brisk capillary refill, no edema. LUNGS: clear to auscultation bilaterally, no coarseness crackles or wheezing, no cough present. CHEST: Symmetrical movement, no accessory muscle use, good tidal volume. ABDOMEN: Soft, scaphoid, no distention, no epigastric or abdominal tenderness, no organomegaly, no flank or suprapubic tenderness, active bowel tones. EXTREMITIES: Healing surgical wounds posterior and medial right ankle moves all extremities, strength is 5/5 and symmetrical, no deformities or joint effusions. NEUROLOGIC: AAO x4, no focal neurologic deficits, cranial nerves II-XII grossly intact, sensation remains intact to light touch. PSYCH:less cooperative than previous visit, appropriate with stable behavior, denies depression or thoughts of self-harm. Objective Labs Result Diagrams: 05/19/20 18:53 05/19/20 18:53 Labs: Laboratory Results - last 24 hr 05/19/20 05/19/20 05/19/20 18:53 18:53 18:53 WBC 7.5 RBC 5.06 Hgb 15.4 Hct 46.7 H MCV 92.2 MCH 30.5 MCHC 33.1 RDW 13.1 Plt Count 392 Neut % (Auto) 73.9 Lymph % (Auto) 19.9 L [place] % (Auto) 5.3 Eos % (Auto) 0.1 L Baso % (Auto) 0.8 Neut # (Auto) 5500 Lymph # (Auto) 1500 [place] # (Auto) 400 Eos # (Auto) 0 Baso # (Auto) 100 VBG pH VBG pCO2 VBG pO2 VBG HCO3 VBG Total CO2 VBG O2 Saturation VBG Base Excess Sodium 125 L D Potassium 5.1 Chloride 86 L Carbon Dioxide 23 BUN 31 H Creatinine 0.53 Estimated GFR > 60.0 BUN/Creatinine Ratio 58.5 H Glucose 764 H* D Lactate Calcium 9.7 Total Bilirubin 0.5 AST 18 ALT 15 Alkaline Phosphatase 256 H Total Protein 7.5 Albumin 4.3 Globulin 3.2 Albumin/Globulin Ratio 1.3 Procalcitonin < 0.05 Ketones 6.75 H 05/19/20 05/19/20 18:53 18:54 WBC RBC Hgb Hct MCV MCH MCHC RDW Plt Count Neut % (Auto) Lymph % (Auto) [place] % (Auto) Eos % (Auto) Baso % (Auto) Neut # (Auto) Lymph # (Auto) [place] # (Auto) Eos # (Auto) Baso # (Auto) VBG pH 7.43 VBG pCO2 12.1 L VBG pO2 62 H VBG HCO3 8 L VBG Total CO2 8 L VBG O2 Saturation 93 H VBG Base Excess -16.0 L Sodium Potassium Chloride Carbon Dioxide BUN Creatinine Estimated GFR BUN/Creatinine Ratio Glucose Lactate 1.1 Calcium Total Bilirubin AST ALT Alkaline Phosphatase Total Protein Albumin Globulin Albumin/Globulin Ratio Procalcitonin Ketones Assessment & Plan Assessment & Plan narrative: This is a 30-year-old female patient with frequent recurrent episodes of diabetic ketoacidosis who presents today in DKA. She was seen in the ER on 05/09/2020 for hyperglycemia treated and discharged home, she then was admitted 05/12-05/13/2020 for DKA. Pt returned to the ER and admitted for mild DKA. 1. Acute diabetic ketoacidosis, in uncontrolled diabetes mellitus type 1 insulin-dependent, unstable, acute on chronic, present on admission -last Hemoglobin A1c >14% was sustained 03/04/2020 has been elevated at greater than 14 % since June of 2018 indicative of poor glycemic control. The patient is followed at [facility] resident endocrinology clinic. -patient takes Tresiba 50 mg Pm., and 7 units of prandial insulin. -Initial blood glucose 764, VBG pH 7.43, HC03 8, base excess -16. Anion gap is 16. COVID-19 negative. The patient has no indication of infection, WBCs are 7.5 without shift. -patient placed on telemedicine, NPO we will advance as tolerated once patient is off insulin drip. Patient given normal saline bolus and was started on insulin drip in the emergency department. Pt placed on DKA/insulin drip protocol: NS @ 150cc/hr when blood sugar is less than 250 changed to D5 half-normal saline at 150 cc/hour.Once anion gap is closed pt will be bridged off insulin drip. -Will check electrolytes including BMP, magnesium every 4 hours. Strict input and output monitoring Q shift, blood sugar checks Q 1-2 hours, monitor for potassium, potassium less than 3.3, hold insulin and replace with K rider replacement. Will continue to monitor blood sugars a.c. and HS. Morning labs to include lipase amylase LDH. Daily weight check, neuro check x1 and as needed, monitor for fluid overload. -will titrate insulin drip with electrolyte replacement per protocol. When blood sugars are stable in anion gap closes will start patient on consistent carbohydrate diet and resume patient's routine insulin therapy. 2. Gastroparesis, chronic, stable, not present on admission. - ordered Reglan 10 mg IV q.6 as needed for nausea. 3. Neurogenic bladder secondary to autonomic nerve dysfunction secondary to diabetes, stable, chronic, not present on admission -patient reports no burning, strong urine smell or hematuria in the setting of neurogenic bladder. -urinalysis is ordered but patient has not yet voided. 4. Surgical wounds right ankle, healing well, stable. -Patient had surgery on her right ankle on 04/08/2020. -she has surgical wounds posterior and medial ankle, no inflammation or drainage, tender to palpation without swelling. VTE prophylaxis: SCDs, enoxaparin 40 Code status: FULL CODE, her surrogate decision maker is her nina Gonzales. COVID-19 status: Negative Result date/Date tested (negative): 05/11/20 Scores GCS Alex coma scale eye opening: Spontaneous [place] coma scale verbal response: Orientated Alex coma scale motor response: Obey commands Alex coma scale total score: 15
[2020-05-19] MEDS: SODIUM CHLORIDE 0.9% 1,000 ML 500 ML IV (21:13)
[2020-05-19 21:24] LABS: COVID19 -Nasal RAPID Negative (Negative)
[2020-05-19 21:44] VITALS: BMI 16.6
[2020-05-19 22:00] VITALS: BP 110/69; PULSE 117; RESP 14; O2SAT 95
[2020-05-19 22:16] VITALS: O2SAT 95
--- NOTE | 2020-05-19 22:29 | PC.NURSE ---
Pt. arrived to the floor at 2053, admitted for DKA. Pt. is a bit drowsy but is alert and oriented. Pt. accompanied by her Reggie laguna. Pt. denied pain. VSS except tachycardia. Oriented to room, call light use and instructed not to get OOB without assistance for safety, pt. agreed and call light within reach. Currently, insulin is infusing at 6units/hr per DKA protocol, 4units bolus not given per Fawn Mendez since pt. BG drop from 764 down to 434 in an hour. Continue DKA protocol.
[2020-05-19 22:40] VITALS: BMI 16.6
[2020-05-19 23:27] LABS: BUN Creatinine Ratio 52.4 (6-22); Blood Urea Nitrogen 22 mg/dL (7-17); Calcium 8.7 mg/dL (8.4-10.2); Carbon Dioxide 31 mmol/L (22-32); Chloride 102 mmol/L (98-107); Estimated Glomerular Filt Rate > 60.0 mL/min (>60); Glucose 203 mg/dL (70-100); HEMOLYSIS < 15 (0-50); Potassium 3.1 mmol/L (3.4-5.1); Sodium 136 mmol/L (137-145)
[2020-05-19] MEDS: DEXTROSE 5%-0.45% NS 1,000 ML 150 ML IV (23:45)
[2020-05-20] VITALS (8 sets, daily range): BP systolic 120–144; BP diastolic 78–92; PULSE 104–124; RESP 12–16; TEMP 35.9–37.1; O2SAT 96–100
[2020-05-20] MEDS: POTASSIUM CHLORIDE 40 MEQ in SODIUM CHLORIDE 0.9% 500 ML 130 ML IV (00:29)
--- NOTE | 2020-05-20 01:41 | PC.NURSE ---
Addendum entered by Jasmine Olivares R.N. 05/20/20 06:03: Patient tolerated turkey sandwich, string cheese and water. IVF stopped. Insluin GTT remains off and SQ dose of Tresiba given per verbal order. Addendum entered by Jasmine Olivares R.N. 05/20/20 05:01: Hospitalist updated on patient status and recent CBG results. Plan to feed patient and start SQ home dose of Tresiba. Last CBG 208. Patient agreeable to eat. Original Note: Patient A/O, drowy in NAD. Denies pain currently. VSS, afebrile except tachycardia per patient's usual presentation. HR has come down from 130 to 115 since 2300. Sp02 97% RA. Insulin GTT managed per protocol as well as with close communication with Hospitalist. Currently off with last CBG 112. Will continue to check CBG Q30 min until >150. D5 1/2 NS @ 150mL/hour infusing as well as a 40 MEQ Krider per protocol orders (K+ 3.1). Anion gap from 16 to 3 - Tresiba to be initiated once CBG better under control. Up to BR with SBA, voiding without difficulty. Urine sent to lab for UA. Call light in reach.
[2020-05-20 02:03] LABS: Bacteria Urine None Seen
[2020-05-20 02:23] LABS: Appearance Urine UA CLEAR; Bilirubin Urine UA NEGATIVE (NEGATIVE); Color Urine UA YELLOW; Glucose Urine UA 2+ g/dL (Negative); Ketones Urine UA 2+ (NEGATIVE); Leukocyte Esterase Urine UA NEGATIVE (NEGATIVE); Nitrite Urine UA NEGATIVE (Negative); Occult Blood Urine UA 1+ (Negative); Protein Urine UA 1+ (Negative); Urobilinogen Urine UA 0.2 E.U./dL (0.2)
[2020-05-20 02:50] LABS: Culture Indicated Urine Cult Not Indicated; RBC Urine 0-1/HPF (0-5/HPF); WBC Urine 0-1/HPF (0-5/HPF)
[2020-05-20 05:02] LABS: Add Manual Diff / Slide Review NO; Basophils Absolute Auto 0 /uL (0-100); Basophils Percent Auto 0.4 % (0-2); Eosinophils Absolute Auto 100 /uL (0-450); Eosinophils Percent Auto 0.9 % (2-4); Hematocrit 39.3 % (36-46); Hemoglobin 13.3 g/dL (12.0-16.0); Lymphocytes Absolute Auto 2100 /uL (1100-4500); Lymphocytes Percent Auto 34.3 % (25-40); Mean Corpuscular HGB Conc 33.9 % (30-36); Mean Corpuscular Hemoglobin 30.7 PG (26-34); Mean Corpuscular Volume 90.6 fL (80-100); Monocytes Absolute Auto 400 /uL (0-900); Monocytes Percent Auto 7.2 % (3-14); Neutrophils Absolute Auto 3500 /uL (1500-7000); Neutrophils Percent Auto 57.2 % (50-75); Platelet Count 317 X10^3/uL (150-400); Red Blood Cell Count 4.34 X10^6/uL (4.0-5.2); White Blood Cell Count 6.2 X10^3/uL (4.5-11.0)
[2020-05-20 05:10] LABS: Lactate (Lactic Acid) 0.6 mmol/L (0.7-2.1)
[2020-05-20 05:11] LABS: Amylase 56 U/L (30-110); Lipase 58 U/L (23-300); Phosphorous 3.4 mg/dL (2.5-4.5)
[2020-05-20 05:14] LABS: Ketones (Beta-Hydroxybutyrate) 3.61 mmol/L (<0.27)
[2020-05-20 05:15] LABS: Pregnancy Test Serum,Qual Negative (Negative)
[2020-05-20 05:19] LABS: Hemoglobin A1C% w Est Avg Glu > 14.0 % (4.0-6.0)
[2020-05-20 05:27] LABS: BUN Creatinine Ratio 42.5 (6-22); Blood Urea Nitrogen 17 mg/dL (7-17); Calcium 8.6 mg/dL (8.4-10.2); Carbon Dioxide 31 mmol/L (22-32); Chloride 103 mmol/L (98-107); Estimated Glomerular Filt Rate > 60.0 mL/min (>60); Glucose 214 mg/dL (70-100); HEMOLYSIS < 15 (0-50); Potassium 4.8 mmol/L (3.4-5.1); Sodium 135 mmol/L (137-145)
[2020-05-20] MEDS: INSULIN DEGLUDEC 100 UNIT/ML SUBCUT (05:45)
[2020-05-20] MEDS: INSULIN SUBCUT (05:45)
[2020-05-20] MEDS: INSULIN ASPART 100 UNIT/ML INSULN PEN SUBCUT (09:08)
--- NOTE | 2020-05-20 09:27 | PM.DS.1 ---
History of Present Illness History of Present Illness Date Patient Seen: 05/20/20 Time Patient Seen: 09:27 Chief complaint: pain all over Narrative: As per CARTER Vicente: Ms. Sarabjit Jimenes is a 29-year-old female patient with a history significant for poorly controlled type 1 diabetes, frequent admissions for DKA, migraines and irregular menstruation who presents to the ER complaining of DKA. The patient was seen in the ER on 05/09/2020 with complaints of dehydration, chills and body aches with nausea. She has found that time to have blood sugar 562 without acidosis. She was treated and discharged home, then returned on 05/12/2020 and was admitted for DKA. She reports no fevers or chills, headaches or dizziness, nasal congestion or sore throat. She denies chest pain or palpitations, shortness of breath cough or wheezing. She reports complaints of abdominal pain with nausea without vomiting. She denies complaints of constipation or diarrhea. She reports no urinary symptoms of urgency burning or frequency. She reports having no menstrual periods for over a year. Discharge Providers Provider Date of admission: 05/19/20 20:22 Discharge Date: 05/20/20 Consults: 05/19/20 21:52 Consult to Dietitian, Adult Routine Comment: Reason For Exam: wt. loss >20lbs Discharge provider: Julio Cesar Weinberg DO Summary Hospital Course Discharge Diagnosis: 1. Acute diabetic ketoacidosis, in uncontrolled diabetes mellitus type 1 insulin-dependent, unstable, acute on chronic, present on admission 2. Gastroparesis, chronic, stable, not present on admission. 3. Neurogenic bladder secondary to autonomic nerve dysfunction secondary to diabetes, stable, chronic, not present on admission 4. Surgical wounds right ankle, healing well, stable. Hospital Course: Sarabjit Jimenes is a 30-year-old female with type 1 diabetes with frequent admissions for DKA who presented with diffuse pain and was found to be in mild DKA on admission. She quickly improved with an insulin infusion and felt much improved the following morning. She reported that she had been having difficulty with some of her Tresiba leaking out after injection. This may be due to scarring, and she was recommended to rotate her injection sites in consider alternative sites as well. She could also inject her pen a little more slowly or consider switching to vials with syringes. Once transitioned off her insulin infusion and on to her home Tresiba she was discharged home. Status at Discharge Cognitive/behavioral status at discharge: oriented Functional status at discharge: independent ambulation Overall status at discharge: patient is back to baseline Time Spent with Patient Time spent: Less than 30 minutes Exam Vital Signs (past 8 hours): - 05/20/20 02:00 05/20/20 04:00 05/20/20 04:27 Temperature 96.7 F L Pulse Rate 111 H 113 H 107 H Respiratory Rate 15 16 16 Blood Pressure 144/92 H Pulse Oximetry 96 98 96 05/20/20 05:00 05/20/20 06:00 05/20/20 08:00 Temperature 98.7 F Pulse Rate 109 H 104 H 115 H Respiratory Rate 12 16 16 Blood Pressure 128/80 Pulse Oximetry 97 99 100 Oxygen Delivery Method Room Air Oxygen Flow Rate 0 Narrative Exam Narrative: GENERAL APPEARANCE: well developed, underweight female thin, pale, with poor muscle mass who is mildly ill-appearing, drowsy from medication in ER. HEENT: Normocephalic, PERRLA, conjunctiva clear, EOMs intact without nystagmus, no rhinorrhea, mucous membranes are moist and pink without lesions or exudate. NECK/THYROID: neck supple, nontender, no JVD, no thyromegaly, trachea midline. LYMPH NODES: no cervical or supraclavicular lymphadenopathy. SKIN: Pale skin with pink mucous membranes, warm and dry, multiple small papules upper back without cellulitis rash or tenderness. HEART: Tachycardic heart rate, regular rhythm, S1-S2, no murmur, no rubs or gallops, brisk capillary refill, no edema. LUNGS: clear to auscultation bilaterally, no coarseness crackles or wheezing, no cough present. CHEST: Symmetrical movement, no accessory muscle use, good tidal volume. ABDOMEN: Soft, scaphoid, no distention, no epigastric or abdominal tenderness, no organomegaly, no flank or suprapubic tenderness, active bowel tones. EXTREMITIES: Healing surgical wounds posterior and medial right ankle moves all extremities, strength is 5/5 and symmetrical, no deformities or joint effusions. NEUROLOGIC: AAO x4, no focal neurologic deficits, cranial nerves II-XII grossly intact, sensation remains intact to light touch. PSYCH:less cooperative than previous visit, appropriate with stable behavior, denies depression or thoughts of self-harm. Objective Labs Result Diagrams: 05/20/20 04:43 05/20/20 04:43 Labs: Laboratory Results - last 24 hr 05/19/20 05/19/20 05/19/20 18:53 18:53 18:53 WBC 7.5 RBC 5.06 Hgb 15.4 Hct 46.7 H MCV 92.2 MCH 30.5 MCHC 33.1 RDW 13.1 Plt Count 392 Neut % (Auto) 73.9 Lymph % (Auto) 19.9 L [place] % (Auto) 5.3 Eos % (Auto) 0.1 L Baso % (Auto) 0.8 Neut # (Auto) 5500 Lymph # (Auto) 1500 [place] # (Auto) 400 Eos # (Auto) 0 Baso # (Auto) 100 VBG pH VBG pCO2 VBG pO2 VBG HCO3 VBG Total CO2 VBG O2 Saturation VBG Base Excess Sodium 125 L D Potassium 5.1 Chloride 86 L Carbon Dioxide 23 BUN 31 H Creatinine 0.53 Estimated GFR > 60.0 BUN/Creatinine Ratio 58.5 H Glucose 764 H* D Hemoglobin A1c Lactate Calcium 9.7 Phosphorus Total Bilirubin 0.5 AST 18 ALT 15 Alkaline Phosphatase 256 H Total Protein 7.5 Albumin 4.3 Globulin 3.2 Albumin/Globulin Ratio 1.3 Amylase Lipase Procalcitonin < 0.05 Serum , Qual Urine Color Urine Appearance Urine pH Ur Specific [place] Urine Protein Urine Glucose (UA) Urine Ketones Urine Occult Blood Urine Nitrate Urine Bilirubin Urine Urobilinogen Ur Leukocyte Esterase Urine RBC Urine WBC Urine Bacteria Ur Culture Indicated? Nasal Screen MRSA (PCR) Ketones 6.75 H SARS-CoV-2 (PCR) 05/19/20 05/19/20 05/19/20 18:53 18:54 20:45 WBC RBC Hgb Hct MCV MCH MCHC RDW Plt Count Neut % (Auto) Lymph % (Auto) [place] % (Auto) Eos % (Auto) Baso % (Auto) Neut # (Auto) Lymph # (Auto) [place] # (Auto) Eos # (Auto) Baso # (Auto) VBG pH 7.43 VBG pCO2 12.1 L VBG pO2 62 H VBG HCO3 8 L VBG Total CO2 8 L VBG O2 Saturation 93 H VBG Base Excess -16.0 L Sodium Potassium Chloride Carbon Dioxide BUN Creatinine Estimated GFR BUN/Creatinine Ratio Glucose Hemoglobin A1c Lactate 1.1 Calcium Phosphorus Total Bilirubin AST ALT Alkaline Phosphatase Total Protein Albumin Globulin Albumin/Globulin Ratio Amylase Lipase Procalcitonin Serum , Qual Urine Color Urine Appearance Urine pH Ur Specific [place] Urine Protein Urine Glucose (UA) Urine Ketones Urine Occult Blood Urine Nitrate Urine Bilirubin Urine Urobilinogen Ur Leukocyte Esterase Urine RBC Urine WBC Urine Bacteria Ur Culture Indicated? Nasal Screen MRSA (PCR) Ketones SARS-CoV-2 (PCR) Negative 05/19/20 05/19/20 05/20/20 21:36 23:00 02:01 WBC RBC Hgb Hct MCV MCH MCHC RDW Plt Count Neut % (Auto) Lymph % (Auto) [place] % (Auto) Eos % (Auto) Baso % (Auto) Neut # (Auto) Lymph # (Auto) [place] # (Auto) Eos # (Auto) Baso # (Auto) VBG pH VBG pCO2 VBG pO2 VBG HCO3 VBG Total CO2 VBG O2 Saturation VBG Base Excess Sodium 136 L D Potassium 3.1 L D Chloride 102 Carbon Dioxide 31 BUN 22 H Creatinine 0.42 L Estimated GFR > 60.0 BUN/Creatinine Ratio 52.4 H Glucose 203 H D Hemoglobin A1c Lactate Calcium 8.7 Phosphorus Total Bilirubin AST ALT Alkaline Phosphatase Total Protein Albumin Globulin Albumin/Globulin Ratio Amylase Lipase Procalcitonin Serum , Qual Urine Color Yellow Urine Appearance Clear Urine pH 6.0 Ur Specific [place] 1.010 Urine Protein 1+ H Urine Glucose (UA) 2+ H Urine Ketones 2+ H Urine Occult Blood 1+ H Urine Nitrate Negative Urine Bilirubin Negative Urine Urobilinogen 0.2 Ur Leukocyte Esterase Negative Urine RBC 0-1/hpf Urine WBC 0-1/hpf Urine Bacteria None seen Ur Culture Indicated? Cult not indicated Nasal Screen MRSA (PCR) Negative for mrsa Ketones SARS-CoV-2 (PCR) 05/20/20 05/20/20 05/20/20 04:43 04:43 04:43 WBC 6.2 RBC 4.34 Hgb 13.3 Hct 39.3 MCV 90.6 MCH 30.7 MCHC 33.9 RDW 13.0 Plt Count 317 Neut % (Auto) 57.2 Lymph % (Auto) 34.3 [place] % (Auto) 7.2 Eos % (Auto) 0.9 L Baso % (Auto) 0.4 Neut # (Auto) 3500 Lymph # (Auto) 2100 [place] # (Auto) 400 Eos # (Auto) 100 Baso # (Auto) 0 VBG pH VBG pCO2 VBG pO2 VBG HCO3 VBG Total CO2 VBG O2 Saturation VBG Base Excess Sodium Potassium Chloride Carbon Dioxide BUN Creatinine Estimated GFR BUN/Creatinine Ratio Glucose Hemoglobin A1c > 14.0 H Lactate 0.6 L Calcium Phosphorus Total Bilirubin AST ALT Alkaline Phosphatase Total Protein Albumin Globulin Albumin/Globulin Ratio Amylase Lipase Procalcitonin Serum , Qual Urine Color Urine Appearance Urine pH Ur Specific [place] Urine Protein Urine Glucose (UA) Urine Ketones Urine Occult Blood Urine Nitrate Urine Bilirubin Urine Urobilinogen Ur Leukocyte Esterase Urine RBC Urine WBC Urine Bacteria Ur Culture Indicated? Nasal Screen MRSA (PCR) Ketones SARS-CoV-2 (PCR) 05/20/20 05/20/20 05/20/20 04:43 04:43 04:43 WBC RBC Hgb Hct MCV MCH MCHC RDW Plt Count Neut % (Auto) Lymph % (Auto) [place] % (Auto) Eos % (Auto) Baso % (Auto) Neut # (Auto) Lymph # (Auto) [place] # (Auto) Eos # (Auto) Baso # (Auto) VBG pH VBG pCO2 VBG pO2 VBG HCO3 VBG Total CO2 VBG O2 Saturation VBG Base Excess Sodium Potassium Chloride Carbon Dioxide BUN Creatinine Estimated GFR BUN/Creatinine Ratio Glucose Hemoglobin A1c Lactate Calcium Phosphorus Total Bilirubin AST ALT Alkaline Phosphatase Total Protein Albumin Globulin Albumin/Globulin Ratio Amylase 56 Lipase 58 Procalcitonin Serum , Qual Negative Urine Color Urine Appearance Urine pH Ur Specific [place] Urine Protein Urine Glucose (UA) Urine Ketones Urine Occult Blood Urine Nitrate Urine Bilirubin Urine Urobilinogen Ur Leukocyte Esterase Urine RBC Urine WBC Urine Bacteria Ur Culture Indicated? Nasal Screen MRSA (PCR) Ketones 3.61 H SARS-CoV-2 (PCR) 05/20/20 05/20/20 04:43 04:43 WBC RBC Hgb Hct MCV MCH MCHC RDW Plt Count Neut % (Auto) Lymph % (Auto) [place] % (Auto) Eos % (Auto) Baso % (Auto) Neut # (Auto) Lymph # (Auto) [place] # (Auto) Eos # (Auto) Baso # (Auto) VBG pH VBG pCO2 VBG pO2 VBG HCO3 VBG Total CO2 VBG O2 Saturation VBG Base Excess Sodium 135 L Potassium 4.8 D Chloride 103 Carbon Dioxide 31 BUN 17 Creatinine 0.40 L Estimated GFR > 60.0 BUN/Creatinine Ratio 42.5 H Glucose 214 H Hemoglobin A1c Lactate Calcium 8.6 Phosphorus 3.4 Total Bilirubin AST ALT Alkaline Phosphatase Total Protein Albumin Globulin Albumin/Globulin Ratio Amylase Lipase Procalcitonin Serum , Qual Urine Color Urine Appearance Urine pH Ur Specific [place] Urine Protein Urine Glucose (UA) Urine Ketones Urine Occult Blood Urine Nitrate Urine Bilirubin Urine Urobilinogen Ur Leukocyte Esterase Urine RBC Urine WBC Urine Bacteria Ur Culture Indicated? Nasal Screen MRSA (PCR) Ketones SARS-CoV-2 (PCR) [facility] Medical History (Updated 05/20/20 @ 01:10 by Teddy Yap DO) DKA (diabetic ketoacidoses) History of pyelonephritis Irregular menstrual cycle Migraine headache Nephrolithiasis Type 1 diabetes mellitus Surgical History History of ureter stent Hx of local excision of skin lesion Status post laser lithotripsy of ureteral calculus [place] teeth extracted Family History Father In good health Mother Cardiac disease Social History details: Engaged household members: significant other and family Smoking Status: Never smoker alcohol intake: never Discharge Plan Discharge Plan Patient Disposition: Home Provider Discharge Comment: You were admitted to the hospital with mild DKA. Would recommend you inject your tresiba slowly if you are developing scarring in your abdomen or use alternative sites including your arm or thigh. You can also ask about switching to vials with syringes instead. Discharge orders & Medications Prescriptions: Continued glucose 4 gram tablet,chewable 4 gram PO Q15M PRN (Reason: hypoglycemia) Qty: 30 RF: 0 Glucagon Emergency Kit (human) 1 mg recon soln 1 mg subcut DIRECTED RF: 0 insulin degludec 200 unit/mL (3 mL) Insulin Pen 50 unit SUBCUT DAILY RF: 0 lisinopril 10 mg tablet 10 mg PO DAILY RF: 0 insulin aspart U-100 [Novolog Flexpen U-100 Insulin] 100 unit/mL (3 mL) insulin pen 7 unit SUBCUT AC RF: 0 Diet/Activity/Treatments Diet: Diet as Tolerated and Carb-consistent/Diabetic Activity: As tolerated Visit Report/Discharge Packet Instructions: DI for Diabetic Ketoacidosis Discharge Data Attending Provider: Amee Mendez VTE Deep Vein Thrombosis/Pulmonary Embolism Present on Admission: Yes
--- NOTE | 2020-05-20 11:00 | PC.NURSE ---
AM Shift Pt requesting to d/c home with this RN at start of shift. CBG has been stable, off IVF. Taking PO well with Triceba from home. Dr Weinberg into see Pt. Orders written IV removed and Pt wheeled down to mother. Reports follow up visit with PCP @ [facility] on Saturday. Per Pt, I will see if they will better manage my care.
--- NOTE | 2020-05-20 14:53 | CM.IDA ---
Initial DCP Assessment Note Patient is a 30 yo female, resident of [place]. Patient readmits w/ DKA PCP is Dr. Limon. Primary payor is 1)[facility] 2)Medicaid. Met with patient explained CM/SW role. Patient known to [employer] from previous visits. Patient with h/o DKA related to diabetes type I. Patient alert and oriented resting in bed at time of visit. Patient reports that she hopes to d/c home today. Patient denies any d/c planning needs. Patient indicates that her Mother will be providing transport home. Patient denies any needs. P: Home today. ANGELA
[2020-05-23 12:08] LABS: Osmolality, Serum 296 mOsmol/kg (275-295)
== END 2020-05-20 11:02 | disposition home or self-care (01) ==
LOC: ED 18:04 → ICU 05-20 01:10 → AC 05-20 10:37
PROVIDERS: Admitting Provider Nurse Practitioner Family; Emergency Provider Emergency Medicine; Referring Provider Emergency Medicine; Visit Provider Nurse Practitioner Family
DX: E10.10 Type 1 diabetes mellitus with ketoacidosis without coma (principal); Z79.4 Long term (current) use of insulin; K31.84 Gastroparesis; N31.2 Flaccid neuropathic bladder, not elsewhere classified; Z20.822 Contact with and (suspected) exposure to COVID-19
CPT/HCPCS: 36415; 80048; 80053; 81001; 82009; 82150; 82805; 82962; 83036; 83605; 83690; 83930; 84100; 84145; 84703; 85025; 87635; 87797; 93005; 94762; 96361; 96365; 96366; 96372; 96375; 99283; 99291; C9803; G0378; J1630; J3480

== ENCOUNTER 2020-09-29 16:30 | Inpatient (IN) | payer MEDICAID, SELFPAY ==
[2020-09-29] VITALS (10 sets, daily range): BP systolic 91–114; BP diastolic 54–71; PULSE 115–129; RESP 12–21; TEMP 36.3–36.7; O2SAT 98–100; BMI 16.0; BMI 17.2
--- NOTE | 2020-09-29 16:55 | ED.GENADULT ---
HPI - General Adult General Chief complaint: Diabetic Problem Stated complaint: mom thinks dehydration Time Seen by Provider: 09/29/20 16:55 Related Data Home Medications Medication Instructions Recorded Confirmed Glucagon Emergency Kit (human) 1 mg SUBCUT DIRECTED 02/16/19 05/19/20 insulin degludec 50 unit SUBCUT DAILY 11/21/19 05/19/20 lisinopril 10 mg PO DAILY 02/03/20 05/19/20 insulin aspart U-100 [Novolog 7 unit SUBCUT AC 05/20/20 05/20/20 Flexpen U-100 Insulin] Previous Rx's Medication Instructions Recorded glucose 4 gram PO Q15M PRN #30 tab 12/12/18 Allergies Allergy/AdvReac Type Severity Reaction Status Date / Time arredondo [ARREDONDO] Allergy Intermediate Hives, Verified 09/29/20 16:51 pruritus iodine [IODINE] Allergy Intermediate rash, itchy Verified 09/29/20 16:51 morphine Allergy Intermediate Difficulty Verified 09/29/20 16:51 Breathing shellfish derived Allergy Intermediate rash Verified 09/29/20 16:51 [SHELLFISH DERIVED] adhesive [ADHESIVE] Allergy Unknown tape Verified 09/29/20 16:51 latex [LATEX] Allergy Unknown Hives Verified 09/29/20 16:51 Patient History Medical History (Updated 05/26/20 @ 08:48 by [employer]) DKA (diabetic ketoacidoses) History of pyelonephritis Irregular menstrual cycle Migraine headache Nephrolithiasis Type 1 diabetes mellitus Surgical History History of ureter stent Hx of local excision of skin lesion Status post laser lithotripsy of ureteral calculus [place] teeth extracted Family History Father In good health Mother Cardiac disease Social History details: Engaged household members: significant other and family Smoking Status: Never smoker alcohol intake: never Smoking Status: Never smoker alcohol intake frequency: holidays/special occasions only Substance Use Type: does not use Discharge Plan Departure Prescriptions: No Action glucose 4 gram tablet,chewable 4 gram PO Q15M PRN (Reason: hypoglycemia) Qty: 30 RF: 0 Glucagon Emergency Kit (human) 1 mg recon soln 1 mg subcut DIRECTED RF: 0 insulin degludec 200 unit/mL (3 mL) Insulin Pen 50 unit SUBCUT DAILY RF: 0 lisinopril 10 mg tablet 10 mg PO DAILY RF: 0 insulin aspart U-100 [Novolog Flexpen U-100 Insulin] 100 unit/mL (3 mL) insulin pen 7 unit SUBCUT AC RF: 0
[2020-09-29 17:40] LABS: Add Manual Diff / Slide Review NO; Basophils Absolute Auto 100 /uL (0-100); Basophils Percent Auto 1.1 % (0-2); Eosinophils Absolute Auto 0 /uL (0-450); Hemoglobin 15.1 g/dL (12.0-16.0); Lymphocytes Absolute Auto 1500 /uL (1100-4500); Lymphocytes Percent Auto 18.2 % (25-40); Mean Corpuscular HGB Conc 32.1 % (30-36); Mean Corpuscular Hemoglobin 32.1 PG (26-34); Mean Corpuscular Volume 100.1 fL (80-100); Monocytes Absolute Auto 600 /uL (0-900); Monocytes Percent Auto 6.9 % (3-14); Neutrophils Absolute Auto 6200 /uL (1500-7000); Neutrophils Percent Auto 73.8 % (50-75); Platelet Count 387 X10^3/uL (150-400); Red Blood Cell Count 4.69 X10^6/uL (4.0-5.2); Red Cell Distribution Width 12.9 % (11.6-14.8); White Blood Cell Count 8.4 X10^3/uL (4.5-11.0)
[2020-09-29] MEDS: SODIUM CHLORIDE 0.9% 1,000 ML 1000 ML IV (17:48)
[2020-09-29] MEDS: ONDANSETRON 4 MG/2 ML INJ IV (17:48)
[2020-09-29] MEDS: HYDROMORPHONE 1 MG INJ IV ×2 (17:55→22:11)
--- NOTE | 2020-09-29 18:28 | ED.GENADULT ---
HPI - General Adult General Chief complaint: Diabetic Problem Stated complaint: mom thinks dehydration Time Seen by Provider: 09/29/20 16:55 Source: patient Mode of arrival: Wheelchair Limitations: no limitations History of Present Illness HPI narrative: Patient is a 30-year-old female who is well known to myself in this emergency department as an insulin-dependent diabetic who frequently presents in DKA. She is here with her mother with complaints of concerns for dehydration, pain ?all over? and elevated blood sugars. It appears that her symptoms started this morning but have worsened throughout the day. She is taking her medications as directed. No fevers. No cough. No chest pain. No urinary symptoms. No indication of any infection. Related Data Home Medications Medication Instructions Recorded Confirmed Glucagon Emergency Kit (human) 1 mg SUBCUT DIRECTED 02/16/19 05/19/20 insulin degludec 50 unit SUBCUT DAILY 11/21/19 05/19/20 lisinopril 10 mg PO DAILY 02/03/20 05/19/20 insulin aspart U-100 [Novolog 7 unit SUBCUT AC 05/20/20 05/20/20 Flexpen U-100 Insulin] Previous Rx's Medication Instructions Recorded glucose 4 gram PO Q15M PRN #30 tab 12/12/18 Allergies Allergy/AdvReac Type Severity Reaction Status Date / Time abdalla [ABDALLA] Allergy Intermediate Hives, Verified 09/29/20 19:50 pruritus iodine [IODINE] Allergy Intermediate rash, itchy Verified 09/29/20 19:50 morphine Allergy Intermediate Difficulty Verified 09/29/20 19:50 Breathing shellfish derived Allergy Intermediate rash Verified 09/29/20 19:50 [SHELLFISH DERIVED] adhesive [ADHESIVE] Allergy Unknown tape Verified 09/29/20 19:50 latex [LATEX] Allergy Unknown Hives Verified 09/29/20 19:50 Review of Systems Constitutional Constitutional: Reports fatigue, Denies fever(s), Reports lethargy and Reports malaise Eyes Eyes: Reports system reviewed and no additional complaints, except as documented Cardiovascular Cardiovascular: Denies chest pain and Denies dyspnea Respiratory Respiratory: Denies cough and Denies dyspnea Gastrointestinal Gastrointestinal: Reports abdominal pain, Denies constipation, Denies diarrhea, Denies nausea and Denies vomiting Genitourinary Genitourinary: Denies dysuria Genitourinary: Denies abnormal vaginal bleeding and Denies dysuria Musculoskeletal Comments: Generalized body aches Integumentary/Breasts Skin/Breast: Denies lesions and Denies rash Neurologic Neurologic: Reports system reviewed and no additional complaints, except as documented Psychiatric Psychiatric: Reports system reviewed and no additional complaints, except as documented Endocrine Endocrine: Reports fatigue Hematologic/Lymphatic Hematologic/Lymphatic: Reports system reviewed and no additional complaints, except as documented On Anticoagulants: No Allergic/Immunologic Allergic/Immunologic: Reports system reviewed and no additional complaints, except as documented Patient History Medical History DKA (diabetic ketoacidoses) History of pyelonephritis Irregular menstrual cycle Migraine headache Nephrolithiasis Type 1 diabetes mellitus Surgical History History of ureter stent Hx of local excision of skin lesion Status post laser lithotripsy of ureteral calculus [place] teeth extracted Family History Father In good health Mother Cardiac disease Social History details: Engaged household members: significant other and family Smoking Status: Never smoker alcohol intake: never Smoking Status: Never smoker alcohol intake frequency: holidays/special occasions only Substance Use Type: does not use Exam Initial Vital Signs Initial Vital Signs: Vital Signs Temperature 97.3 F L 09/29/20 16:43 Pulse Rate 129 H 09/29/20 16:43 Respiratory Rate 20 09/29/20 16:43 Blood Pressure 114/63 09/29/20 16:43 Pulse Oximetry 99 09/29/20 16:43 Const General: cooperative Limitations: mental status not altered [facility] Head: normal to inspection and normocephalic Eyes General: appearance normal, both eyes and all related structures Resp Effort & Inspection: tachypneic Auscultation: clear to auscultation bilaterally Cardio Rate: tachycardic Rhythm: regular rhythm Pulses: radial pulses present GI Inspection: non-distended Palpation: soft and tender (Generalized tenderness) Skin Lesions: no lesions Rashes: no rashes Neuro General: patient alert, patient awake and patient oriented x3 Cognition: normal cognition Speech: speech normal Extrem General: normal to inspection and capillary refill normal Psych Appearance: grossly normal and well kempt Scores GCS Alex coma scale eye opening: Spontaneous [place] coma scale verbal response: Orientated [place] coma scale motor response: Obey commands Alex coma scale total score: 15 Course Orders Ordered: ED Orders 09/29/20 15:43 Complete Blood Count AUTO DIFF Stat Comprehensive Metabolic Panel Stat Ketones (Beta-Hydroxybutyrate) Stat Lipase Stat Magnesium Stat 09/29/20 18:16 Phosphorous Stat Test Serum,Qual Stat Venous Blood Gas Stat 09/29/20 18:30 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) Stat Sodium Chloride (Normal Saline 0.9%) 1,000 mls @ 250 mls/hr IV CONT BLAISE INSULIN DRIP PREMIX (Myxredlin Drip Premix) 100 unit in 100 mls @ 6 mls/hr IV TITRATE BLAISE; Protocol Last Admin: 09/29/20 20:19 Dose: 6 mls/hr, 6 mls/hr Documented by: Discontinued Medications Hydromorphone HCl (Hydromorphone 1 Mg Inj) 1 mg IV NOW ONE Stop: 09/29/20 17:53 Last Admin: 09/29/20 17:55 Dose: 1 mg Documented by: THADDEUS Sodium Chloride (Normal Saline 0.9%) 1,000 mls @ 1,000 mls/hr IV BOLUS ONE Stop: 09/29/20 17:54 Last Infusion: 09/29/20 19:07 Dose: 0 mls/hr Documented by: Admin: 09/29/20 17:48 Dose: 1,000 mls/hr Documented by: THADDEUS Ondansetron HCl (Ondansetron 4 Mg/2 Ml Inj) 4 mg IV NOW ONE Stop: 09/29/20 16:56 Last Admin: 09/29/20 17:48 Dose: 4 mg Documented by: THADDEUS Vital Signs Vital signs: Vital Signs - 8 hr 09/29/20 16:43 09/29/20 16:50 09/29/20 17:00 Temperature 97.3 F L Pulse Rate 129 H 128 H 124 H Respiratory Rate 20 20 17 Blood Pressure 114/63 113/65 Pulse Oximetry 99 100 100 09/29/20 17:30 09/29/20 17:51 09/29/20 18:00 Temperature Pulse Rate 125 H 123 H 122 H Respiratory Rate 16 20 20 Blood Pressure 109/71 105/70 Pulse Oximetry 100 98 99 09/29/20 18:30 09/29/20 19:00 09/29/20 19:30 Temperature Pulse Rate 117 H 115 H 115 H Respiratory Rate 16 12 14 Blood Pressure 95/58 L 91/55 L 95/54 L Pulse Oximetry 100 100 99 Medical Decision Making Medical Records Medical records reviewed: Yes I reviewed the patient's medical records. Lab Data Lab results reviewed: Yes I reviewed the patient's lab results. Result diagrams: 09/29/20 15:43 09/29/20 15:43 Labs: Lab Results 09/29/20 09/29/20 09/29/20 Range/Units 15:43 15:43 15:43 WBC 8.4 (4.5-11.0) X10^3/uL RBC 4.69 (4.0-5.2) X10^6/uL Hgb 15.1 (12.0-16.0) g/dL Hct 47.0 H (36-46) % MCV 100.1 H (80-100) fL MCH 32.1 (26-34) PG MCHC 32.1 (30-36) % RDW 12.9 (11.6-14.8) % Plt Count 387 (150-400) X10^3/uL Neut % (Auto) 73.8 (50-75) % Lymph % (Auto) 18.2 L (25-40) % Kimball % (Auto) 6.9 (3-14) % Eos % (Auto) 0.0 L (2-4) % Baso % (Auto) 1.1 (0-2) % Neut # (Auto) 6200 (8448-0973) /uL Lymph # (Auto) 1500 (7156-0879) /uL Kimball # (Auto) 600 (0-900) /uL Eos # (Auto) 0 (0-450) /uL Baso # (Auto) 100 (0-100) /uL VBG pH (7.33-7.43) VBG pCO2 (45-50) mmHg VBG pO2 (35-45) mmHg VBG HCO3 (23-28) mmol/L VBG Total CO2 (24-29) mmol/L VBG O2 Saturation (70-75) % VBG Base Excess (0-4) mmol/L Sodium 137 (137-145) mmol/L Potassium 5.5 H (3.4-5.1) mmol/L Chloride 105 (98-107) mmol/L Carbon Dioxide 6 L* (22-32) mmol/L BUN 25 H (7-17) mg/dL Creatinine 0.82 (0.52-1.04) mg/dL Estimated GFR > 60.0 (>60) mL/min BUN/Creatinine Ratio 30.5 H (6-22) Glucose 644 H* (70-100) mg/dL Calcium 10.1 (8.4-10.2) mg/dL Phosphorus (2.5-4.5) mg/dL Magnesium 2.3 (1.6-2.3) mg/dL Total Bilirubin 0.4 (0.2-1.3) mg/dL AST 17 (14-36) IU/L ALT 14 (<35) IU/L Alkaline Phosphatase 177 H (38-126) U/L Total Protein 7.2 (6.3-8.2) g/dL Albumin 4.2 (3.5-5.0) g/dL Globulin 3.0 (1.7-4.1) g/dL Albumin/Globulin Ratio 1.4 (1.0-2.8) Lipase 91 (23-300) U/L Serum , Qual (Negative) Ketones 13.91 H (<0.27) mmol/L SARS-CoV-2 (PCR) (Negative) 09/29/20 09/29/20 09/29/20 Range/Units 18:16 18:16 18:16 WBC (4.5-11.0) X10^3/uL RBC (4.0-5.2) X10^6/uL Hgb (12.0-16.0) g/dL Hct (36-46) % MCV (80-100) fL MCH (26-34) PG MCHC (30-36) % RDW (11.6-14.8) % Plt Count (150-400) X10^3/uL Neut % (Auto) (50-75) % Lymph % (Auto) (25-40) % Kimball % (Auto) (3-14) % Eos % (Auto) (2-4) % Baso % (Auto) (0-2) % Neut # (Auto) (5671-1059) /uL Lymph # (Auto) (7002-2090) /uL Kimball # (Auto) (0-900) /uL Eos # (Auto) (0-450) /uL Baso # (Auto) (0-100) /uL VBG pH 7.16 L* (7.33-7.43) VBG pCO2 18.8 L (45-50) mmHg VBG pO2 33 L (35-45) mmHg VBG HCO3 7 L (23-28) mmol/L VBG Total CO2 7 L (24-29) mmol/L VBG O2 Saturation 50 L (70-75) % VBG Base Excess -22.0 L (0-4) mmol/L Sodium (137-145) mmol/L Potassium (3.4-5.1) mmol/L Chloride (98-107) mmol/L Carbon Dioxide (22-32) mmol/L BUN (7-17) mg/dL Creatinine (0.52-1.04) mg/dL Estimated GFR (>60) mL/min BUN/Creatinine Ratio (6-22) Glucose (70-100) mg/dL Calcium (8.4-10.2) mg/dL Phosphorus 6.8 H (2.5-4.5) mg/dL Magnesium (1.6-2.3) mg/dL Total Bilirubin (0.2-1.3) mg/dL AST (14-36) IU/L ALT (<35) IU/L Alkaline Phosphatase (38-126) U/L Total Protein (6.3-8.2) g/dL Albumin (3.5-5.0) g/dL Globulin (1.7-4.1) g/dL Albumin/Globulin Ratio (1.0-2.8) Lipase (23-300) U/L Serum , Qual Negative (Negative) Ketones (<0.27) mmol/L SARS-CoV-2 (PCR) (Negative) 09/29/20 Range/Units 18:30 WBC (4.5-11.0) X10^3/uL RBC (4.0-5.2) X10^6/uL Hgb (12.0-16.0) g/dL Hct (36-46) % MCV (80-100) fL MCH (26-34) PG MCHC (30-36) % RDW (11.6-14.8) % Plt Count (150-400) X10^3/uL Neut % (Auto) (50-75) % Lymph % (Auto) (25-40) % [place] % (Auto) (3-14) % Eos % (Auto) (2-4) % Baso % (Auto) (0-2) % Neut # (Auto) (5292-8971) /uL Lymph # (Auto) (2840-5200) /uL [place]ball # (Auto) (0-900) /uL Eos # (Auto) (0-450) /uL Baso # (Auto) (0-100) /uL VBG pH (7.33-7.43) VBG pCO2 (45-50) mmHg VBG pO2 (35-45) mmHg VBG HCO3 (23-28) mmol/L VBG Total CO2 (24-29) mmol/L VBG O2 Saturation (70-75) % VBG Base Excess (0-4) mmol/L Sodium (137-145) mmol/L Potassium (3.4-5.1) mmol/L Chloride (98-107) mmol/L Carbon Dioxide (22-32) mmol/L BUN (7-17) mg/dL Creatinine (0.52-1.04) mg/dL Estimated GFR (>60) mL/min BUN/Creatinine Ratio (6-22) Glucose (70-100) mg/dL Calcium (8.4-10.2) mg/dL Phosphorus (2.5-4.5) mg/dL Magnesium (1.6-2.3) mg/dL Total Bilirubin (0.2-1.3) mg/dL AST (14-36) IU/L ALT (<35) IU/L Alkaline Phosphatase (38-126) U/L Total Protein (6.3-8.2) g/dL Albumin (3.5-5.0) g/dL Globulin (1.7-4.1) g/dL Albumin/Globulin Ratio (1.0-2.8) Lipase (23-300) U/L Serum , Qual (Negative) Ketones (<0.27) mmol/L SARS-CoV-2 (PCR) Negative (Negative) Point of Care Testing Glucose POC 500 Point of care testing: Point of Care Testing Glucose POC 500 MDM Narrative Medical decision making narrative: Patient is in DKA. Has an anion gap of 26 and a corrected sodium of 146. Her potassium is above 5. She was given fluids. Will start on an insulin drip without a bolus. Unsure the exact etiology she states she is taking her insulin as she is directed. There is no signs of any infection. test is negative. Discussed the case with MARGO Scruggs and Dr. Chandler the hospitalist who will admit for further evaluation treatment. Critical Care Time Critical Care Time Critical Care Time: Yes Total Critical Care Time: 35 Attestation: The high probability of a clinically significant, sudden or life threatening deterioration of the endocrine system(s) required my full and direct attention, intervention and personal management. The aggregate critical care time was 35 minutes. This time is in addition to time spent performing reported procedures but includes the following: [x] Data Review and interpretation [x] Patient assessment and monitoring of vital signs [x] Documentation [x] Medication orders and management Discharge Plan Departure Patient Disposition: Admitted As Inpatient Clinical Impression: DKA (diabetic ketoacidoses) Admit Date/Time: 09/29/20 19:46 Admit Provider: Doris Scruggs
[2020-09-29 18:43] LABS: Phosphorous 6.8 mg/dL (2.5-4.5); Pregnancy Test Serum,Qual Negative (Negative)
[2020-09-29 19:10] LABS: HCO3 VBG 7 mmol/L (23-28); PCO2 VBG 18.8 mmHg (45-50); PO2 VBG 33 mmHg (35-45); Total CO2 VBG 7 mmol/L (24-29); pH VBG 7.16 (7.33-7.43)
[2020-09-29 19:11] LABS: Oxygen Saturation VBG 50 % (70-75)
[2020-09-29 19:15] LABS: Alanine Aminotransferase 14 IU/L (<35); Albumin 4.2 g/dL (3.5-5.0); Albumin Globulin Ratio 1.4 (1.0-2.8); Alkaline Phosphatase 177 U/L (38-126); Aspartate Aminotransferase 17 IU/L (14-36); BUN Creatinine Ratio 30.5 (6-22); Bilirubin Total 0.4 mg/dL (0.2-1.3); Blood Urea Nitrogen 25 mg/dL (7-17); Calcium 10.1 mg/dL (8.4-10.2); Chloride 105 mmol/L (98-107); Estimated Glomerular Filt Rate > 60.0 mL/min (>60); HEMOLYSIS < 15 (0-50); Lipase 91 U/L (23-300); Magnesium 2.3 mg/dL (1.6-2.3); Sodium 137 mmol/L (137-145); Total Protein 7.2 g/dL (6.3-8.2)
[2020-09-29 19:26] LABS: COVID19 - ADMIT (NP swab/PCR) Negative (Negative)
[2020-09-29 19:29] LABS: Potassium 5.5 mmol/L (3.4-5.1)
[2020-09-29 19:35] LABS: Glucose 644 mg/dL (70-100)
[2020-09-29 19:54] LABS: Carbon Dioxide 6 mmol/L (22-32)
[2020-09-29 19:55] LABS: Ketones (Beta-Hydroxybutyrate) 13.91 mmol/L (<0.27)
[2020-09-29] MEDS: INSULIN DRIP PREMIX 100 UNIT/100 ML PLAST..BAG 6 UNIT IV (20:19)
--- NOTE | 2020-09-29 21:39 | PC.NURSE ---
2004 -Pt to room from ER. Transfer to bed. Pt tearful, c/o generalized pain 8 of 10. everything hurts Pt report onset of nausea today, no emesis. No BM since 09/27, +flatus. Insulin gtt initiated at 6 units/hr. NS infusion at 150cc/hr r/t small tentative IV access. SHARYN Hurd, notified regarding IV access, order for PICC line, [facility] called. Also notified that pt c/o pain 11/29, generalized and tearful.
[2020-09-29 21:45] LABS: BUN Creatinine Ratio 33.3 (6-22); Blood Urea Nitrogen 25 mg/dL (7-17); Calcium 9.7 mg/dL (8.4-10.2); Chloride 110 mmol/L (98-107); Estimated Glomerular Filt Rate > 60.0 mL/min (>60); Glucose 398 mg/dL (70-100); HEMOLYSIS < 15 (0-50); Potassium 3.9 mmol/L (3.4-5.1); Sodium 142 mmol/L (137-145)
[2020-09-29 21:47] LABS: Ketones (Beta-Hydroxybutyrate) 8.02 mmol/L (<0.27)
[2020-09-29 21:50] LABS: Carbon Dioxide 9 mmol/L (22-32)
[2020-09-29 21:56] LABS: Hemoglobin A1C% w Est Avg Glu > 14.0 % (4.0-6.0)
[2020-09-29] MEDS: diphenhydrAMINE 50 MG/ML VIAL 25 MG IV (22:10)
[2020-09-29] MEDS: polyethylene glycoL 3350 17 GM POWD.PACK PO (23:55)
[2020-09-29] MEDS: DEXTROSE 5%-0.45% NS 1,000 ML 62 ML IV (23:55)
[2020-09-29 23:58] LABS: BUN Creatinine Ratio 37.9 (6-22); Blood Urea Nitrogen 25 mg/dL (7-17); Calcium 9.4 mg/dL (8.4-10.2); Carbon Dioxide 15 mmol/L (22-32); Chloride 113 mmol/L (98-107); Estimated Glomerular Filt Rate > 60.0 mL/min (>60); Glucose 227 mg/dL (70-100); HEMOLYSIS < 15 (0-50); Potassium 3.8 mmol/L (3.4-5.1); Sodium 143 mmol/L (137-145)
[2020-09-30] LABS: Ketones (Beta-Hydroxybutyrate) 4.78 mmol/L (<0.27)
[2020-09-30 00:18] VITALS: BP 98/54; PULSE 124; RESP 17; TEMP 36.3; O2SAT 98
--- NOTE | 2020-09-30 00:29 | P.HP_ITS ---
History of Present Illness History of Present Illness Date Patient Seen: 09/29/20 Time Patient Seen: 22:00 Chief complaint: mom thinks dehydration Narrative: Ms. Sarabjit Jimenes is a 29-year-old female patient with a history significant for poorly controlled type 1 diabetes, frequent admissions for DKA, migraines and irregular menstruation who presents to the ER complaining of DKA. The patient states that she woke up this morning and was feeling terrible with all over body pain, nausea and vomiting. She does state that since having the insulin started for her in the ED she is feeling better now. She has found that time to have blood sugar 644 with a metabolic acidosis, pH of 7.1. She reports no fevers or chills, headaches or dizziness, nasal congestion or sore throat. She denies chest pain or palpitations, shortness of breath cough or wheezing. She denies abdominal pain with nausea without vomiting and has had poor oral intake. She denies complaints of constipation or diarrhea. She reports no urinary symptoms of urgency burning or frequency. Upon arrival to the ER the patient is afebrile with temperature 97.3?, tachycardic at 129, blood pressure 91/55, respirations of 22 saturating 98% on room air. CBC is unremarkable.. On chemistry she has a sodium of 137, potassium of 5.5, bicarb of 15, BUN of 25, creatinine 0.66 and phosphorus was 6.8. Her LFTs are within normal range except for her alkaline phosphatase which is chronically elevated and today is found to be 117. She had a VBG with a pH of 7.16, bicarb of 18.8 and a base deficit of 22.0. Her ketones are elevated at 13.91. Hemoglobin A1c remains persistently at 14.0. Serum is negative and COVID screening is negative. In the ER the patient received 15 units of insulin following initiation of insulin infusion. The patient received 2 L normal saline bolus, Dilaudid 1 mg IV and Zofran. The patient is admitted to the hospitalist service for DKA. Patient had been going to [facility] however she is attempting to change providers due to ongoing turnover among providers and losing continuity of care at that clinic. Her physician was supposed to have referred her to [facility] and she is awaiting a call from [facility] for an appointment. Patient History Medical History DKA (diabetic ketoacidoses) History of pyelonephritis Irregular menstrual cycle Migraine headache Nephrolithiasis Type 1 diabetes mellitus Surgical History History of ureter stent Hx of local excision of skin lesion Status post laser lithotripsy of ureteral calculus Lane teeth extracted Family & Social History Family History Father In good health Mother Cardiac disease Social History: household members significant other,family Prior Living Arrangements House Safety & Behavioral: Feels Safe in Current Yes Environment Been Physically Hurt or No Threatened By a Person Suicidal Ideation Description None Tobacco & Substance use: Smoking Status Never smoker alcohol intake never alcohol intake frequency holiday/special occasion Substance Use Type does not use Meds Home Medications and Allergies Home Medications Medication Instructions Recorded Confirmed Type glucose 4 gram PO Q15M PRN #30 tab 12/12/18 09/29/20 Rx Glucagon Emergency Kit (human) 1 mg SUBCUT DIRECTED 02/16/19 09/29/20 History insulin degludec 53 unit SUBCUT 1100 11/21/19 09/29/20 History insulin aspart U-100 [Novolog 10 unit SUBCUT AC 05/20/20 09/29/20 History Flexpen U-100 Insulin] diphenhydramine HCl [Benadryl] 50 mg PO BEDTIME PRN 09/29/20 09/29/20 History Allergies Allergy/AdvReac Type Severity Reaction Status Date / Time abdalla [ABDALLA] Allergy Intermediate Hives, Verified 09/29/20 19:50 pruritus iodine [IODINE] Allergy Intermediate rash, itchy Verified 09/29/20 19:50 morphine Allergy Intermediate Difficulty Verified 09/29/20 19:50 Breathing shellfish derived Allergy Intermediate rash Verified 09/29/20 19:50 [SHELLFISH DERIVED] adhesive [ADHESIVE] Allergy Unknown tape Verified 09/29/20 19:50 latex [LATEX] Allergy Unknown Hives Verified 09/29/20 19:50 Review of Systems Review of Systems Narrative: Constitutional: Denies fever, sweats or chills, HEENT: Denies visual or hearing impairment, difficulty swallowing, sore throat Resp: Denies cough, shortness of breath Cardiac: Denies chest pain, palpitations or orthopnea GI: Has nausea without vomiting, abdominal pain, denies hematemesis, diarrhea o r constipation : Denies dysuria or hematuria Neuro: Denies numbing or tingling of upper or lower extremities, Extremities: States all-over body pain Skin: Denies skin lesions or rashes Hme: Denies easy bleeding or bruising. Exam Vital Signs (past 8 hours): - 09/29/20 16:43 09/29/20 16:50 09/29/20 17:00 Temperature 97.3 F L Pulse Rate 129 H 128 H 124 H Respiratory Rate 20 20 17 Blood Pressure 114/63 113/65 Pulse Oximetry 99 100 100 09/29/20 17:30 09/29/20 17:51 09/29/20 18:00 Temperature Pulse Rate 125 H 123 H 122 H Respiratory Rate 16 20 20 Blood Pressure 109/71 105/70 Pulse Oximetry 100 98 99 09/29/20 18:30 09/29/20 19:00 09/29/20 19:30 Temperature Pulse Rate 117 H 115 H 115 H Respiratory Rate 16 12 14 Blood Pressure 95/58 L 91/55 L 95/54 L Pulse Oximetry 100 100 99 09/29/20 20:05 09/30/20 00:18 Temperature 98.0 F 97.3 F L Pulse Rate 129 H 124 H Respiratory Rate 21 17 Blood Pressure 113/58 L 98/54 L Pulse Oximetry 98 98 Oxygen Delivery Method Room Air Narrative Exam Narrative: Gen: Alert, oriented, thin 30 y.o. female, labile HEENT: normocephalic, atraumatic, conjunctiva clear, sclera non-icteric, oral mucosa pink and moist Neck: supple, full ROM, no JVD, trachea is midline Resp: Lungs CTA, non-labored breathing CV: RRR, no murmur or rubs Abd: soft, non-tender, normoactive BTs Skin: no lesions or rashes, dry and intact Neuro: Alert and oriented X 4 w/no focal deficits. Speech clear and coherent. Extremities: moves all 4 extremities, is ambulatory, negative Namita?s sign Psyche: labile due to stated pain Objective Labs Result Diagrams: 09/29/20 15:43 09/29/20 23:30 Labs: Laboratory Results - last 24 hr 09/29/20 09/29/2021 15:43 15:43 15:43 WBC 8.4 RBC 4.69 Hgb 15.1 Hct 47.0 H MCV 100.1 H MCH 32.1 MCHC 32.1 RDW 12.9 Plt Count 387 Neut % (Auto) 73.8 Lymph % (Auto) 18.2 L [place] % (Auto) 6.9 Eos % (Auto) 0.0 L Baso % (Auto) 1.1 Neut # (Auto) 6200 Lymph # (Auto) 1500 [place] # (Auto) 600 Eos # (Auto) 0 Baso # (Auto) 100 VBG pH VBG pCO2 VBG pO2 VBG HCO3 VBG Total CO2 VBG O2 Saturation VBG Base Excess Sodium 137 Potassium 5.5 H Chloride 105 Carbon Dioxide 6 L* BUN 25 H Creatinine 0.82 Estimated GFR > 60.0 BUN/Creatinine Ratio 30.5 H Glucose 644 H* Hemoglobin A1c Calcium 10.1 Phosphorus Magnesium 2.3 Total Bilirubin 0.4 AST 17 ALT 14 Alkaline Phosphatase 177 H Total Protein 7.2 Albumin 4.2 Globulin 3.0 Albumin/Globulin Ratio 1.4 Lipase 91 Serum , Qual Ketones 13.91 H SARS-CoV-2 (PCR) 09/29/20 09/29/20 09/29/20 18:16 18:16 18:16 WBC RBC Hgb Hct MCV MCH MCHC RDW Plt Count Neut % (Auto) Lymph % (Auto) [place] % (Auto) Eos % (Auto) Baso % (Auto) Neut # (Auto) Lymph # (Auto) [place] # (Auto) Eos # (Auto) Baso # (Auto) VBG pH 7.16 L* VBG pCO2 18.8 L VBG pO2 33 L VBG HCO3 7 L VBG Total CO2 7 L VBG O2 Saturation 50 L VBG Base Excess -22.0 L Sodium Potassium Chloride Carbon Dioxide BUN Creatinine Estimated GFR BUN/Creatinine Ratio Glucose Hemoglobin A1c Calcium Phosphorus 6.8 H Magnesium Total Bilirubin AST ALT Alkaline Phosphatase Total Protein Albumin Globulin Albumin/Globulin Ratio Lipase Serum , Qual Negative Ketones SARS-CoV-2 (PCR) 09/29/20 09/29/20 09/29/20 18:30 21:30 21:30 WBC RBC Hgb Hct MCV MCH MCHC RDW Plt Count Neut % (Auto) Lymph % (Auto) [place] % (Auto) Eos % (Auto) Baso % (Auto) Neut # (Auto) Lymph # (Auto) [place] # (Auto) Eos # (Auto) Baso # (Auto) VBG pH VBG pCO2 VBG pO2 VBG HCO3 VBG Total CO2 VBG O2 Saturation VBG Base Excess Sodium 142 Potassium 3.9 D Chloride 110 H Carbon Dioxide 9 L* BUN 25 H Creatinine 0.75 Estimated GFR > 60.0 BUN/Creatinine Ratio 33.3 H Glucose 398 H D Hemoglobin A1c > 14.0 H Calcium 9.7 Phosphorus Magnesium Total Bilirubin AST ALT Alkaline Phosphatase Total Protein Albumin Globulin Albumin/Globulin Ratio Lipase Serum , Qual Ketones 8.02 H SARS-CoV-2 (PCR) Negative 09/29/20 23:30 WBC RBC Hgb Hct MCV MCH MCHC RDW Plt Count Neut % (Auto) Lymph % (Auto) [place] % (Auto) Eos % (Auto) Baso % (Auto) Neut # (Auto) Lymph # (Auto) [place] # (Auto) Eos # (Auto) Baso # (Auto) VBG pH VBG pCO2 VBG pO2 VBG HCO3 VBG Total CO2 VBG O2 Saturation VBG Base Excess Sodium 143 Potassium 3.8 Chloride 113 H Carbon Dioxide 15 L BUN 25 H Creatinine 0.66 Estimated GFR > 60.0 BUN/Creatinine Ratio 37.9 H Glucose 227 H D Hemoglobin A1c Calcium 9.4 Phosphorus Magnesium Total Bilirubin AST ALT Alkaline Phosphatase Total Protein Albumin Globulin Albumin/Globulin Ratio Lipase Serum , Qual Ketones 4.78 H SARS-CoV-2 (PCR) Assessment & Plan Assessment & Plan narrative: Clover Jimenes is a 30 y.o. female patient with frequent recurrent episodes of diabetic ketoacidosis who presents today in DKA. She developed body aches with nausea and is found to be in DKA 1. Acute diabetic ketoacidosis, in uncontrolled diabetes mellitus type 1, present on admission, active. -last Hemoglobin A1c >14% was sustained 03/04/2020 has been elevated at greater than 14 % since June of 2018 indicative of poor glycemic control. The patient is followed at [facility] resident endocrinology clinic. -patient takes Tresiba 53 mg at 11 a.m., and 7 units of prandial insulin. -Initial blood glucose 64, VBG pH 7.1, HC03 18, base excess -22. Anion gap is 25. COVID-19 negative. The patient has no indication of infection, WBC is 8.4 without a left shift. -patient given normal saline bolus and was started on insulin drip in the emergency department. Ordered normal saline 200 cc per 1 blood sugar is less than 200 changed to D5 half-normal saline at 150 cc/hour. -Will check electrolytes including BMP, magnesium every 4 hours. -will titrate insulin drip with electrolyte replacement per protocol. When blood sugars are stable in anion gap closes will start patient on consistent carbohydrate diet and resume patient's routine insulin therapy. -At 2330, patient's gap closed at 16 and glargine will be started at 26 units bid starting at 0030 on 09/30. -recommend patient be arranged for her 1st endocrinology appointment at [facility] upon discharge. 2. Gastroparesis, chronic, stable. -patient with initial complaint of nausea without vomiting upon presentation the ER. -patient received Zofran x1 in the ER, ordered Reglan 10 mg IV q.6 as needed for nausea. VTE prophylaxis: Wells risk score: 1.5 Enoxaparin 40 mg subQ daily Consults: none Patient is admitted under inpatient status with expected length of stay greater than 2 midnights due to severity of presenting symptoms, risk of adverse event, and complexity of treatment plan. FEN: 0.45 NS at 150 ml/hour, NPO except chips, BMP and magnesium in the am in addition to protocol . Dispo: Probable discharge to home Code Status: Full code as discussed with patient Scores Wells' Criteria for PE Clinical signs and symptoms of DVT: No PE is #1 Dx or equally likely: No Heart rate > 100: Yes Immobilization at least 3 days or surg in previous 4 weeks: No History of PE or DVT: No Hemoptysis: No Malignancy w/Treatment within 6 months or palliative: No Wells' PE Score total: 1.5 Quality VTE Deep Vein Thrombosis/Pulmonary Embolism Present on Admission: No MIPS - Admit I confirm the patient?s Advance Care Plan is present, Code status is documented, Surrogate decision maker is in patient?s record [If Yes, STOP here]: Yes
[2020-09-30] MEDS: HYDROMORPHONE 1 MG INJ IV ×4 (00:52→12:28)
[2020-09-30] MEDS: SODIUM CHLORIDE 0.9% FLUSH 10 ML IV ×3 (00:52→09:07)
[2020-09-30 03:24] LABS: BUN Creatinine Ratio 45.6 (6-22); Blood Urea Nitrogen 26 mg/dL (7-17); Calcium 9.5 mg/dL (8.4-10.2); Carbon Dioxide 22 mmol/L (22-32); Chloride 113 mmol/L (98-107); Estimated Glomerular Filt Rate > 60.0 mL/min (>60); Glucose 103 mg/dL (70-100); HEMOLYSIS 18 (0-50); Potassium 3.8 mmol/L (3.4-5.1); Sodium 142 mmol/L (137-145)
[2020-09-30 03:26] LABS: Ketones (Beta-Hydroxybutyrate) 1.92 mmol/L (<0.27)
[2020-09-30] MEDS: diphenhydrAMINE 50 MG/ML VIAL 25 MG IV ×2 (04:10→12:28)
[2020-09-30 05:07] VITALS: BP 115/79; PULSE 109; RESP 18; TEMP 36.2; O2SAT 100
[2020-09-30 05:23] LABS: BUN Creatinine Ratio 47.1 (6-22); Blood Urea Nitrogen 24 mg/dL (7-17); Calcium 9.4 mg/dL (8.4-10.2); Carbon Dioxide 20 mmol/L (22-32); Chloride 112 mmol/L (98-107); Estimated Glomerular Filt Rate > 60.0 mL/min (>60); Glucose 111 mg/dL (70-100); HEMOLYSIS < 15 (0-50); Potassium 3.4 mmol/L (3.4-5.1); Sodium 142 mmol/L (137-145)
[2020-09-30 05:24] LABS: Phosphorous 3.9 mg/dL (2.5-4.5)
[2020-09-30 05:26] LABS: Ketones (Beta-Hydroxybutyrate) 2.76 mmol/L (<0.27)
--- NOTE | 2020-09-30 06:30 | PC.NURSE ---
Forklift Technician Note-Patient has been awake most of night. Medicated with IV Dilaudid per prn and IV Benadryl for puritis. Insulin gtt titrated down, BG 235-107, see flow sheet, D5 1/2NS @ 62ml/hr as ordered. No nausea. ST 105-120s, other VSS.
[2020-09-30 07:21] LABS: BUN Creatinine Ratio 46.8 (6-22); Blood Urea Nitrogen 22 mg/dL (7-17); Calcium 9.2 mg/dL (8.4-10.2); Carbon Dioxide 22 mmol/L (22-32); Chloride 112 mmol/L (98-107); Estimated Glomerular Filt Rate > 60.0 mL/min (>60); Glucose 110 mg/dL (70-100); HEMOLYSIS < 15 (0-50); Potassium 3.8 mmol/L (3.4-5.1); Sodium 140 mmol/L (137-145)
[2020-09-30 07:24] LABS: Ketones (Beta-Hydroxybutyrate) 2.44 mmol/L (<0.27)
[2020-09-30] MEDS: DEGLUDEC 53 EACH SUBCUT (09:04)
--- NOTE | 2020-09-30 11:18 | DIET.PN ---
Dietary Progress Note Assessment: 30y F c T1D admitted for DKA referred to nutrition for weight loss, high risk. Pt last consulted for inpatient DM in 12/09 when pt body weight was same as today 42kg c BMI 17.2. Pt remains frustrated c endocrinology care secondary to receiving care at residency clinic. Pt establishing c [facility] Endo soon. Per hospitalist, pts anion gap has closed and she is off insulin drip with CCD diet ordered at breakfast today. Pt likely to d/c today. HT: 154.9cm WT: 41.3kg UBW: 42kg BMI: 17.2 Labs: admit BG 644 with a metabolic acidosis, pH of 7.1, alk phos 117 H, A1c >14, Ketones 14 H Nutrition Diagnosis: Severe Chronic Malnutrition r/t poorly managed DM (type 1) aeb pt has repeat admissions for DKA resulting in N/V, gastroparesis, BMI 17.2 (severe for age), chronic A1c of >14, inconsistent endocrinology care. Interventions: 1. Recc pt have Endo appt scheduled prior to d/c to better manage DM and encouraging healthy diet and weight gain. 2. Recc ONS Glucerna after any meal where POs <75% Diet Order: CCD EER:1435kcal (35kcal/kg per PCM), 53g PRO (1.3g/kg per PCM) Monitoring/Evaluations: POs, ONS tolerance
--- NOTE | 2020-09-30 11:21 | PC.NURSE ---
Addendum entered by Amee Esparza R.N. 09/30/20 14:26: Midline removed, PIV removed, Pt dc to w/c with mother. Original Note: AM shift Pt is alert and requesting meal this AM, denies nausea. Started home Tre[place]ba started, patient eating, and insulin and iVF stopped. SS started with lunch. Pt reports chronic abd pain, medicated per Emar. Requesting to d/c home KATIE. PICC to [facility] to get OOB. Mother at bedside.
--- NOTE | 2020-09-30 11:21 | CM.DANOTE ---
Discharge Planning/Care Management DCP: assessment: case received and discussed in Team Rounds. Dr. Weinberg stated pt would likely be ok for home today. Met now with pt and introduced self and role. Pt is found sleeping but rouses easily and was very agreeable to conversation. Pt says she has not seen Dr. Weinberg yet but that she had been told d/c was likely for today. She says her mother, with whom she is currently living as she awaits pending bilateral cataract surgery, will be the person who will pick her up. Pt is a 30 year old female who admitted last evening to care of hospitalist team. PCP: Maria Ines Limon Payer: [employer] P: to mother's home when stable for same and continued OUTPT followup. Social Services Coordinator Ellen is planning to see pt today. CM Discharge Assessment Start: 09/30/20 10:47 Freq: Status: Active Protocol: Document 09/30/20 10:47 ITV (Rec: 09/30/20 10:48 ITV [id number]) Discharge Planning Assessment Advance Directives? No Document 09/30/20 11:16 ITV (Rec: 09/30/20 11:18 ITV [id number]) Discharge Planning Assessment Advance Directives? No Advance Directives on File No History Provided By Patient,Medical Record Prior Living Arrangements House Comment currently staying with her mother Argelia/Olivia as she prepares for bilateral cataract surgery. Independent with ADL's Yes Is patient alert and oriented? Yes Transportation Arrangement Mother Argelia will pick her up today Document 09/30/20 11:20 ITV (Rec: 09/30/20 11:21 ITV [id number]) Discharge Planning Assessment Advance Directives? No Advance Directives on File No History Provided By Patient,Medical Record Prior Living Arrangements House Comment currently staying with her mother Argelia/Olivia as she prepares for bilateral cataract surgery. Independent with ADL's Yes Is patient alert and oriented? Yes Transportation Arrangement Mother Argelia will pick her up today
[2020-09-30 12:00] VITALS: BP 101/66; PULSE 119; RESP 16; TEMP 36.7; O2SAT 99
--- NOTE | 2020-09-30 12:20 | PM.DS.1 ---
History of Present Illness History of Present Illness Date Patient Seen: 09/30/20 Time Patient Seen: 12:21 Chief complaint: mom thinks dehydration Narrative: SHARYN Bah: Ms. Sarabjit Jimenes is a 29-year-old female patient with a history significant for poorly controlled type 1 diabetes, frequent admissions for DKA, migraines and irregular menstruation who presents to the ER complaining of DKA. The patient states that she woke up this morning and was feeling terrible with all over body pain, nausea and vomiting. She does state that since having the insulin started for her in the ED she is feeling better now. She has found that time to have blood sugar 644 with a metabolic acidosis, pH of 7.1. She reports no fevers or chills, headaches or dizziness, nasal congestion or sore throat. She denies chest pain or palpitations, shortness of breath cough or wheezing. She denies abdominal pain with nausea without vomiting and has had poor oral intake. She denies complaints of constipation or diarrhea. She reports no urinary symptoms of urgency burning or frequency. Upon arrival to the ER the patient is afebrile with temperature 97.3?, tachycardic at 129, blood pressure 91/55, respirations of 22 saturating 98% on room air. CBC is unremarkable.. On chemistry she has a sodium of 137, potassium of 5.5, bicarb of 15, BUN of 25, creatinine 0.66 and phosphorus was 6.8. Her LFTs are within normal range except for her alkaline phosphatase which is chronically elevated and today is found to be 117. She had a VBG with a pH of 7.16, bicarb of 18.8 and a base deficit of 22.0. Her ketones are elevated at 13.91. Hemoglobin A1c remains persistently at 14.0. Serum is negative and COVID screening is negative. In the ER the patient received 15 units of insulin following initiation of insulin infusion. The patient received 2 L normal saline bolus, Dilaudid 1 mg IV and Zofran. The patient is admitted to the hospitalist service for DKA. Patient had been going to [facility] however she is attempting to change providers due to ongoing turnover among providers and losing continuity of care at that clinic. Her physician was supposed to have referred her to [facility] and she is awaiting a call from [facility] for an appointment. Discharge Providers Provider Date of admission: 09/29/20 19:46 Discharge Date: 09/30/20 Primary care physician: Maria Ines Limon DO Consults: 09/29/20 20:47 Consult to Dietitian, Adult Routine Comment: Reason For Exam: weight loss, high risk 09/29/20 20:48 Consult After Hours PICC Line RN Stat Comment: Discharge provider: Julio Cesar Weinberg DO Summary Hospital Course Discharge Diagnosis: 1. Acute diabetic ketoacidosis, in uncontrolled diabetes mellitus type 1, present on admission, active. 2. Gastroparesis, chronic, stable. Hospital Course: This is a 30-year-old female with a past medical history of type 1 diabetes with frequent prior admissions for diabetic ketoacidosis and gastroparesis. She again presented in DKA which quickly resolved with insulin infusion therapy. She improved much more quickly than expected. Following morning she was resumed on her home [place] after resolution of her ketoacidosis. Infectious workup was unremarkable and the patient endorse taking her usual medications consistent with prior episodes of DKA. No medication changes were recommended at the time of discharge. Status at Discharge Cognitive/behavioral status at discharge: oriented Exam Vital Signs (past 8 hours): - 09/30/20 05:07 Temperature 97.2 F L Pulse Rate 109 H Respiratory Rate 18 Blood Pressure 115/79 Pulse Oximetry 100 Oxygen Delivery Method Room Air Narrative Exam Narrative: Gen: Alert, oriented, thin 30 y.o. female, labile HEENT: normocephalic, atraumatic, conjunctiva clear, sclera non-icteric, oral mucosa pink and moist Neck: supple, full ROM, no JVD, trachea is midline Resp: Lungs CTA, non-labored breathing CV: RRR, no murmur or rubs Abd: soft, non-tender, normoactive BTs Skin: no lesions or rashes, dry and intact Neuro: Alert and oriented X 4 w/no focal deficits. Speech clear and coherent. Extremities: moves all 4 extremities, is ambulatory, negative Namita?s sign Psyche: calm cooperative stable behavior Objective Labs Result Diagrams: 09/29/20 15:43 09/30/20 07:05 Labs: Laboratory Results - last 24 hr 09/29/20 09/29/20 09/29/20 15:43 15:43 15:43 WBC 8.4 RBC 4.69 Hgb 15.1 Hct 47.0 H MCV 100.1 H MCH 32.1 MCHC 32.1 RDW 12.9 Plt Count 387 Neut % (Auto) 73.8 Lymph % (Auto) 18.2 L [place] % (Auto) 6.9 Eos % (Auto) 0.0 L Baso % (Auto) 1.1 Neut # (Auto) 6200 Lymph # (Auto) 1500 [place] # (Auto) 600 Eos # (Auto) 0 Baso # (Auto) 100 VBG pH VBG pCO2 VBG pO2 VBG HCO3 VBG Total CO2 VBG O2 Saturation VBG Base Excess Sodium 137 Potassium 5.5 H Chloride 105 Carbon Dioxide 6 L* BUN 25 H Creatinine 0.82 Estimated GFR > 60.0 BUN/Creatinine Ratio 30.5 H Glucose 644 H* Hemoglobin A1c Calcium 10.1 Phosphorus Magnesium 2.3 Total Bilirubin 0.4 AST 17 ALT 14 Alkaline Phosphatase 177 H Total Protein 7.2 Albumin 4.2 Globulin 3.0 Albumin/Globulin Ratio 1.4 Lipase 91 Serum , Qual Ketones 13.91 H SARS-CoV-2 (PCR) 09/29/20 09/29/20 09/29/20 18:16 18:16 18:16 WBC RBC Hgb Hct MCV MCH MCHC RDW Plt Count Neut % (Auto) Lymph % (Auto) [place] % (Auto) Eos % (Auto) Baso % (Auto) Neut # (Auto) Lymph # (Auto) [place] # (Auto) Eos # (Auto) Baso # (Auto) VBG pH 7.16 L* VBG pCO2 18.8 L VBG pO2 33 L VBG HCO3 7 L VBG Total CO2 7 L VBG O2 Saturation 50 L VBG Base Excess -22.0 L Sodium Potassium Chloride Carbon Dioxide BUN Creatinine Estimated GFR BUN/Creatinine Ratio Glucose Hemoglobin A1c Calcium Phosphorus 6.8 H Magnesium Total Bilirubin AST ALT Alkaline Phosphatase Total Protein Albumin Globulin Albumin/Globulin Ratio Lipase Serum , Qual Negative Ketones SARS-CoV-2 (PCR) 09/29/20 09/29/20 09/29/20 18:30 21:30 21:30 WBC RBC Hgb Hct MCV MCH MCHC RDW Plt Count Neut % (Auto) Lymph % (Auto) [place]linger % (Auto) Eos % (Auto) Baso % (Auto) Neut # (Auto) Lymph # (Auto) [place] # (Auto) Eos # (Auto) Baso # (Auto) VBG pH VBG pCO2 VBG pO2 VBG HCO3 VBG Total CO2 VBG O2 Saturation VBG Base Excess Sodium 142 Potassium 3.9 D Chloride 110 H Carbon Dioxide 9 L* BUN 25 H Creatinine 0.75 Estimated GFR > 60.0 BUN/Creatinine Ratio 33.3 H Glucose 398 H D Hemoglobin A1c > 14.0 H Calcium 9.7 Phosphorus Magnesium Total Bilirubin AST ALT Alkaline Phosphatase Total Protein Albumin Globulin Albumin/Globulin Ratio Lipase Serum , Qual Ketones 8.02 H SARS-CoV-2 (PCR) Negative 09/29/20 09/30/20 09/30/20 23:30 02:55 05:05 WBC RBC Hgb Hct MCV MCH MCHC RDW Plt Count Neut % (Auto) Lymph % (Auto) [place]linger % (Auto) Eos % (Auto) Baso % (Auto) Neut # (Auto) Lymph # (Auto) [place] # (Auto) Eos # (Auto) Baso # (Auto) VBG pH VBG pCO2 VBG pO2 VBG HCO3 VBG Total CO2 VBG O2 Saturation VBG Base Excess Sodium 143 142 142 Potassium 3.8 3.8 3.4 Chloride 113 H 113 H 112 H Carbon Dioxide 15 L 22 20 L BUN 25 H 26 H 24 H Creatinine 0.66 0.57 0.51 L Estimated GFR > 60.0 > 60.0 > 60.0 BUN/Creatinine Ratio 37.9 H 45.6 H 47.1 H Glucose 227 H D 103 H D 111 H Hemoglobin A1c Calcium 9.4 9.5 9.4 Phosphorus Magnesium Total Bilirubin AST ALT Alkaline Phosphatase Total Protein Albumin Globulin Albumin/Globulin Ratio Lipase Serum , Qual Ketones 4.78 H 1.92 H 2.76 H SARS-CoV-2 (PCR) 09/30/20 09/30/20 05:05 07:05 WBC RBC Hgb Hct MCV MCH MCHC RDW Plt Count Neut % (Auto) Lymph % (Auto) [place]linger % (Auto) Eos % (Auto) Baso % (Auto) Neut # (Auto) Lymph # (Auto) [place] # (Auto) Eos # (Auto) Baso # (Auto) VBG pH VBG pCO2 VBG pO2 VBG HCO3 VBG Total CO2 VBG O2 Saturation VBG Base Excess Sodium 140 Potassium 3.8 Chloride 112 H Carbon Dioxide 22 BUN 22 H Creatinine 0.47 L Estimated GFR > 60.0 BUN/Creatinine Ratio 46.8 H Glucose 110 H Hemoglobin A1c Calcium 9.2 Phosphorus 3.9 D Magnesium Total Bilirubin AST ALT Alkaline Phosphatase Total Protein Albumin Globulin Albumin/Globulin Ratio Lipase Serum , Qual Ketones 2.44 H SARS-CoV-2 (PCR) [facility] Medical History DKA (diabetic ketoacidoses) History of pyelonephritis Irregular menstrual cycle Migraine headache Nephrolithiasis Type 1 diabetes mellitus Surgical History History of ureter stent Hx of local excision of skin lesion Status post laser lithotripsy of ureteral calculus [place] teeth extracted Family History Father In good health Mother Cardiac disease Social History details: Engaged household members: significant other and family Smoking Status: Never smoker alcohol intake: never Discharge Plan Discharge Plan Patient Disposition: Home Provider Discharge Comment: You were admitted to the hospital with DKA, you improved quickly with insulin therapy. No medication changes are currently recommended at this time. Please follow-up with her primary care provider and energy systems laboratory director as previously scheduled. Discharge orders & Medications Prescriptions: Continued glucose 4 gram tablet,chewable 4 gram PO Q15M PRN (Reason: hypoglycemia) Qty: 30 RF: 0 Glucagon Emergency Kit (human) 1 mg recon soln 1 mg subcut DIRECTED RF: 0 insulin degludec 200 unit/mL (3 mL) Insulin Pen 53 unit SUBCUT 1100 RF: 0 insulin aspart U-100 [Novolog Flexpen U-100 Insulin] 100 unit/mL (3 mL) insulin pen 10 unit SUBCUT AC RF: 0 diphenhydramine HCl 50 mg Capsule 50 mg PO BEDTIME PRN (Reason: Sleep) RF: 0 Follow up/Referrals: Maria Inse Limon DO [Primary Care Provider] - Discharge Health Status Multidrug resistant organism: No MDRO Diet/Activity/Treatments Diet: Diet as Tolerated and Carb-consistent/Diabetic Activity: As tolerated Visit Report/Discharge Packet Instructions: DI for Diabetic Ketoacidosis Discharge Data Primary Care Provider: Maria Ines Limon Quality VTE Deep Vein Thrombosis/Pulmonary Embolism Present on Admission: No
[2020-09-30] MEDS: INSULIN LISPRO 100 UNIT/ML 3ML VIAL SUBCUT (12:37)
[2020-09-30] MEDS: INSULIN LISPRO 100 UNIT/ML 3ML VIAL 8 UNIT SUBCUT (12:38)
[2020-10-03 16:07] LABS: Osmolality, Serum 347 mOsmol/kg (275-295)
== END 2020-09-30 14:27 | disposition home or self-care (01) | DRG 637 ==
LOC: ED 18:05 → ICU 09-30 06:41 → AC 09-30 13:40 → ICU 09-30 13:40
PROVIDERS: Emergency Medicine; Admitting Provider Nurse Practitioner Family; Emergency Provider Emergency Medicine; PCP Student in an Organized Health Care Education/Training Program; Referring Provider Emergency Medicine; Visit Provider Nurse Practitioner Family
DX: E10.10 Type 1 diabetes mellitus with ketoacidosis without coma (principal); E43 Unspecified severe protein-calorie malnutrition; Z68.1 Body mass index [BMI] 19.9 or less, adult; E10.43 Type 1 diabetes mellitus with diabetic autonomic (poly)neuropathy; K31.84 Gastroparesis; Z79.4 Long term (current) use of insulin; Z20.822 Contact with and (suspected) exposure to COVID-19
CPT/HCPCS: 36415; 36592; 80048; 80053; 82009; 82805; 82962; 83036; 83690; 83735; 83930; 84100; 84703; 85025; 87086; 87635; 96361; 96374; 96375; 99284; 99291; C9803; J1170; J1200; J1815; J2405

== ENCOUNTER 2020-10-09 04:40 | Inpatient (IN) | payer MEDICAID, SELFPAY ==
[2020-09-29 20:37] VITALS: BMI 17.2
[2020-10-09] VITALS (16 sets, daily range): BP systolic 91–117; BP diastolic 54–78; PULSE 105–138; RESP 9–30; TEMP 36.5–37.1; O2SAT 98–100; BMI 16.2
[2020-10-09] MEDS: ONDANSETRON 4 MG/2 ML INJ IV (05:17)
[2020-10-09] MEDS: HYDROMORPHONE 1 MG INJ IV (05:17)
[2020-10-09] MEDS: SODIUM CHLORIDE 0.9% 1,000 ML 1000 ML IV (05:17)
--- NOTE | 2020-10-09 05:25 | ED.GENADULT ---
HPI - General Adult General Chief complaint: Diabetic Problem Stated complaint: diabetic reaction Time Seen by Provider: 10/09/20 04:46 Source: patient and family Mode of arrival: Wheelchair Limitations: no limitations History of Present Illness HPI narrative: Patient is a 22-year-old female history of he is uncontrolled and has frequent episodes of DKA presenting today with a few hours of nausea vomiting and abdominal pain. She had cataract surgery 2 days ago she was doing well until a few hours ago. She denies any fever or chills. She was admitted September 29 through September 30 for mild DKA. Since April which is good for her. She denies any fever or chills no painful or frequent urination no cough shortness of breath. Last time they were unable to find source of infection. Related Data Home Medications Medication Instructions Recorded Confirmed Glucagon Emergency Kit (human) 1 mg SUBCUT DIRECTED 02/16/19 09/29/20 insulin degludec 53 unit SUBCUT 1100 11/21/19 09/29/20 insulin aspart U-100 [Novolog 10 unit SUBCUT AC 05/20/20 09/29/20 Flexpen U-100 Insulin] diphenhydramine HCl 50 mg PO BEDTIME PRN 09/29/20 09/29/20 Previous Rx's Medication Instructions Recorded glucose 4 gram PO Q15M PRN #30 tab 12/12/18 Allergies Allergy/AdvReac Type Severity Reaction Status Date / Time arredondo [ARREDONDO] Allergy Intermediate Hives, Verified 09/29/20 19:50 pruritus iodine [IODINE] Allergy Intermediate rash, itchy Verified 09/29/20 19:50 morphine Allergy Intermediate Difficulty Verified 09/29/20 19:50 Breathing shellfish derived Allergy Intermediate rash Verified 09/29/20 19:50 [SHELLFISH DERIVED] adhesive [ADHESIVE] Allergy Unknown tape Verified 09/29/20 19:50 latex [LATEX] Allergy Unknown Hives Verified 09/29/20 19:50 Review of Systems Review of Systems Narrative: GENERAL: Denies chills, fatigue, malaise, fever, sweats, travel HEENT: Denies sinus pain, ear pain, sore throat, difficulty swallowing, neck pain RESPIRATORY: Denies dyspnea, cough, wheezing, hemoptysis, sputum. CARDIOVASCULAR: Denies chest pain, palpitations, orthopnea, edema GASTROINTESTINAL: See HPI : Denies dysuria, frequency, incontinence, hematuria, urinary retention, flank pain. MUSCULOSKELETAL: Denies weakness, joint pain, or bony pain SKIN: No rash, no erythema, no pruritus NEUROLOGIC: Denies weakness, dizziness, headache, numbness, change in speech, confusion PSYCHIATRIC: No concerning psychosocial issues. 12 point review of systems is negative except for those stated above and HPI Patient History Medical History (Updated 10/09/20 @ 06:35 by Megan Luevano DO) DKA (diabetic ketoacidoses) History of pyelonephritis Irregular menstrual cycle Migraine headache Nephrolithiasis Type 1 diabetes mellitus Surgical History History of ureter stent Hx of local excision of skin lesion Status post laser lithotripsy of ureteral calculus [place] teeth extracted Family History Father In good health Mother Cardiac disease Social History details: Engaged household members: significant other and family Smoking Status: Never smoker alcohol intake: never Smoking Status: Never smoker alcohol intake frequency: holidays/special occasions only Substance Use Type: does not use Exam Initial Vital Signs Initial Vital Signs: Vital Signs Temperature 98.8 F 10/09/20 04:46 Pulse Rate 138 H 10/09/20 04:46 Respiratory Rate 30 H 10/09/20 04:46 Blood Pressure 112/75 10/09/20 04:46 Pulse Oximetry 100 10/09/20 04:46 GENERAL: Thin 30-year-old tearful female HEENT: Head atraumatic,EOMI, pupils reactive, face symmetric, dry mucous membranes CARDIOVASCULAR: Regular rate and rhythm without murmurs, rubs or gallops. RESPIRATORY: Breath sounds equal bilaterally, no wheezes rales or rhonchi. ABDOMEN: Soft, diffusely tender without guarding or rebound : No CVA tenderness EXTREMITIES: Normal range of motion, no clubbing or edema. Neurovascularly intact NEUROLOGICAL: Alert and oriented x4.Normal gait and speech. SKIN: Warm, dry, no laceration, no petechiae, no rashes or lesions. Course Orders Ordered: ED Orders 10/09/20 04:47 Venous Blood Gas Stat EKG-12 Lead Stat 10/09/20 05:20 Blood Culture Stat Complete Blood Count AUTO DIFF Stat Comprehensive Metabolic Panel Stat Ketones (Beta-Hydroxybutyrate) Stat Lactate (Lactic Acid) Stat Procalcitonin Stat Acetaminophen (Acetaminophen 325 Mg Tablet) 650 mg PO Q4HR PRN PRN Reason: Fever/Mild Pain (1-3) Dextrose (Dextrose 50 % In Water 25 Gm/50 Ml Syringe) 25 gm IV PRN PRN PRN Reason: Hypoglycemia Enoxaparin Sodium (Enoxaparin 40 Mg/0.4 Ml Syringe) 40 mg SUBCUT DAILY BLAISE Lactated Ringer's (Lactated Ringers) 1,000 mls @ 200 mls/hr IV CONT BLAISE Last Admin: 10/09/20 06:26 Dose: 200 mls/hr Documented by: Insulin Human Regular 100 unit (/ Sodium Chloride) 100 mls @ 6 mls/hr IV TITRATE BLAISE; Protocol Last Admin: 10/09/20 06:27 Dose: 6 mls/hr, 6 mls/hr Documented by: Sodium Chloride (Normal Saline 0.9%) 1,000 mls @ 500 mls/hr IV CONT BLAISE Stop: 11/08/20 08:44 Insulin Human Regular 100 unit (/ Sodium Chloride) 100 mls @ 6 mls/hr IV TITRATE BLAISE; Protocol Naloxone HCl (Naloxone 0.4 Mg/Ml Vial) 0.2 mg IV Q2MIN PRN PRN Reason: Opiate Reversal Ondansetron HCl (Ondansetron 4 Mg/2 Ml Inj) 4 mg IV Q4HR PRN PRN Reason: Nausea And Vomiting Discontinued Medications Hydromorphone HCl (Hydromorphone 1 Mg Inj) 1 mg IV NOW ONE Stop: 10/09/20 04:47 Last Admin: 10/09/20 05:17 Dose: 1 mg Documented by: ARABELLA Hydromorphone HCl (Hydromorphone 0.5 Mg Inj) 0.5 mg IV NOW ONE Stop: 10/09/20 06:25 Last Admin: 10/09/20 06:30 Dose: 0.5 mg Documented by: Sodium Chloride (Normal Saline 0.9%) 1,000 mls @ 1,000 mls/hr IV BOLUS ONE Stop: 10/09/20 05:45 Last Admin: 10/09/20 05:17 Dose: 1,000 mls/hr Documented by: ARABELLA Ondansetron HCl (Ondansetron 4 Mg/2 Ml Inj) 4 mg IV NOW ONE Stop: 10/09/20 04:47 Last Admin: 10/09/20 05:17 Dose: 4 mg Documented by: ARABELLA Vital Signs Vital signs: Vital Signs - 8 hr 10/09/20 04:46 10/09/20 05:06 10/09/20 05:30 Temperature 98.8 F Pulse Rate 138 H 132 H 123 H Respiratory Rate 30 H 21 29 H Blood Pressure 112/75 Pulse Oximetry 100 100 100 10/09/20 05:31 10/09/20 06:00 Temperature Pulse Rate 123 H 125 H Respiratory Rate 15 18 Blood Pressure 92/55 L 91/62 Pulse Oximetry 100 100 Medical Decision Making Lab Data Result diagrams: 10/09/20 05:20 10/09/20 05:20 Labs: Lab Results 10/09/20 10/09/20 10/09/20 Range/Units 04:47 05:20 05:20 WBC 9.2 (4.5-11.0) X10^3/uL RBC 4.17 (4.0-5.2) X10^6/uL Hgb 13.3 (12.0-16.0) g/dL Hct 41.6 (36-46) % MCV 99.9 (80-100) fL MCH 31.9 (26-34) PG MCHC 31.9 (30-36) % RDW 13.0 (11.6-14.8) % Plt Count 525 H (150-400) X10^3/uL Neut % (Auto) 63.2 (50-75) % Lymph % (Auto) 28.9 (25-40) % [place] % (Auto) 6.6 (3-14) % Eos % (Auto) 0.2 L (2-4) % Baso % (Auto) 1.1 (0-2) % Neut # (Auto) 5800 (4644-7293) /uL Lymph # (Auto) 2700 (9441-4145) /uL [place] # (Auto) 600 (0-900) /uL Eos # (Auto) 0 (0-450) /uL Baso # (Auto) 100 (0-100) /uL VBG pH 7.08 L* (7.33-7.43) VBG pCO2 13.2 L (45-50) mmHg VBG pO2 61 H (35-45) mmHg VBG HCO3 4 L (23-28) mmol/L VBG Total CO2 < 5 L (24-29) mmol/L VBG O2 Saturation 81 H (70-75) % VBG Base Excess -26.0 L (0-4) mmol/L Sodium 135 L (137-145) mmol/L Potassium 5.1 D (3.4-5.1) mmol/L Chloride 100 (98-107) mmol/L Carbon Dioxide < 5 L* (22-32) mmol/L BUN 22 H (7-17) mg/dL Creatinine 0.85 (0.52-1.04) mg/dL Estimated GFR > 60.0 (>60) mL/min BUN/Creatinine Ratio 25.9 H (6-22) Glucose 597 H* D (70-100) mg/dL Lactate (0.7-2.1) mmol/L Calcium 9.4 (8.4-10.2) mg/dL Total Bilirubin 0.3 (0.2-1.3) mg/dL AST 19 (14-36) IU/L ALT 18 (<35) IU/L Alkaline Phosphatase 197 H (38-126) U/L Total Protein 6.9 (6.3-8.2) g/dL Albumin 4.1 (3.5-5.0) g/dL Globulin 2.8 (1.7-4.1) g/dL Albumin/Globulin Ratio 1.5 (1.0-2.8) Procalcitonin 0.10 (<0.5) ng/mL Ketones 16.79 H (<0.27) mmol/L 06/20/21 Range/Units 05:20 WBC (4.5-11.0) X10^3/uL RBC (4.0-5.2) X10^6/uL Hgb (12.0-16.0) g/dL Hct (36-46) % MCV (80-100) fL MCH (26-34) PG MCHC (30-36) % RDW (11.6-14.8) % Plt Count (150-400) X10^3/uL Neut % (Auto) (50-75) % Lymph % (Auto) (25-40) % [place] % (Auto) (3-14) % Eos % (Auto) (2-4) % Baso % (Auto) (0-2) % Neut # (Auto) (8422-3355) /uL Lymph # (Auto) (4401-2818) /uL [place] # (Auto) (0-900) /uL Eos # (Auto) (0-450) /uL Baso # (Auto) (0-100) /uL VBG pH (7.33-7.43) VBG pCO2 (45-50) mmHg VBG pO2 (35-45) mmHg VBG HCO3 (23-28) mmol/L VBG Total CO2 (24-29) mmol/L VBG O2 Saturation (70-75) % VBG Base Excess (0-4) mmol/L Sodium (137-145) mmol/L Potassium (3.4-5.1) mmol/L Chloride (98-107) mmol/L Carbon Dioxide (22-32) mmol/L BUN (7-17) mg/dL Creatinine (0.52-1.04) mg/dL Estimated GFR (>60) mL/min BUN/Creatinine Ratio (6-22) Glucose (70-100) mg/dL Lactate 1.8 (0.7-2.1) mmol/L Calcium (8.4-10.2) mg/dL Total Bilirubin (0.2-1.3) mg/dL AST (14-36) IU/L ALT (<35) IU/L Alkaline Phosphatase (38-126) U/L Total Protein (6.3-8.2) g/dL Albumin (3.5-5.0) g/dL Globulin (1.7-4.1) g/dL Albumin/Globulin Ratio (1.0-2.8) Procalcitonin (<0.5) ng/mL Ketones (<0.27) mmol/L Point of Care Testing Glucose POC 500 Point of care testing: Point of Care Testing Glucose POC 500 ECG Data Attestation: I personally reviewed and interpreted this ECG as follows: Prior ECG tracings: available for review Interpretation: Sinus tachycardia rate 133 p.r. interval 118 QRS [address] changes or T-wave inversions similar to previous EKG MDM Narrative Medical decision making narrative: Patient has DKA with an anion gap of 30 for a pH of 7.0, and glucose of 597. She is immediately started on fluids insulin drip is held into low potassium is back which is 5.1. Insulin drip was started. No infection however she has yet to urinate. She actually has been living at home with her mom which seems to have given her some stability kept her out of the hospital for about 6 months. Amee Mendez air in P updated patient's symptoms test results and agrees with admission to ICU Critical Care Time Critical Care Time Critical Care Time: Yes Total Critical Care Time: 30 Attestation: The high probability of a clinically significant, sudden or life threatening deterioration of the [cardiovascular] system(s) required my full and direct attention, intervention and personal management. The aggregate critical care time was 30 minutes. This time is in addition to time spent performing reported procedures but includes the following: [x] Data Review and interpretation [x] Patient assessment and monitoring of vital signs [x] Documentation [x] Medication orders and management Discharge Plan Departure Patient Disposition: Admitted As Inpatient Clinical Impression: DKA (diabetic ketoacidoses) Admit Date/Time: 10/09/20 06:27 Admit Provider: Amee Menedz
[2020-10-09 05:52] LABS: Add Manual Diff / Slide Review NO; Basophils Absolute Auto 100 /uL (0-100); Basophils Percent Auto 1.1 % (0-2); Eosinophils Absolute Auto 0 /uL (0-450); Eosinophils Percent Auto 0.2 % (2-4); Hematocrit 41.6 % (36-46); Hemoglobin 13.3 g/dL (12.0-16.0); Lymphocytes Absolute Auto 2700 /uL (1100-4500); Lymphocytes Percent Auto 28.9 % (25-40); Mean Corpuscular HGB Conc 31.9 % (30-36); Mean Corpuscular Hemoglobin 31.9 PG (26-34); Mean Corpuscular Volume 99.9 fL (80-100); Monocytes Absolute Auto 600 /uL (0-900); Monocytes Percent Auto 6.6 % (3-14); Neutrophils Absolute Auto 5800 /uL (1500-7000); Neutrophils Percent Auto 63.2 % (50-75); Platelet Count 525 X10^3/uL (150-400); Red Blood Cell Count 4.17 X10^6/uL (4.0-5.2); White Blood Cell Count 9.2 X10^3/uL (4.5-11.0)
[2020-10-09 06:02] LABS: Alanine Aminotransferase 18 IU/L (<35); Albumin 4.1 g/dL (3.5-5.0); Albumin Globulin Ratio 1.5 (1.0-2.8); Alkaline Phosphatase 197 U/L (38-126); Aspartate Aminotransferase 19 IU/L (14-36); BUN Creatinine Ratio 25.9 (6-22); Bilirubin Total 0.3 mg/dL (0.2-1.3); Blood Urea Nitrogen 22 mg/dL (7-17); Calcium 9.4 mg/dL (8.4-10.2); Chloride 100 mmol/L (98-107); Estimated Glomerular Filt Rate > 60.0 mL/min (>60); Globulin 2.8 g/dL (1.7-4.1); HEMOLYSIS < 15 (0-50); Lactate (Lactic Acid) 1.8 mmol/L (0.7-2.1); Potassium 5.1 mmol/L (3.4-5.1); Sodium 135 mmol/L (137-145); Total Protein 6.9 g/dL (6.3-8.2)
[2020-10-09 06:07] LABS: HCO3 VBG 4 mmol/L (23-28); PCO2 VBG 13.2 mmHg (45-50); PO2 VBG 61 mmHg (35-45); Total CO2 VBG < 5 mmol/L (24-29)
[2020-10-09 06:08] LABS: Carbon Dioxide < 5 mmol/L (22-32)
[2020-10-09 06:08] LABS: Oxygen Saturation VBG 81 % (70-75)
[2020-10-09 06:09] LABS: pH VBG 7.08 (7.33-7.43)
[2020-10-09 06:09] LABS: Glucose 597 mg/dL (70-100)
[2020-10-09] MEDS: LACTATED RINGERS 1,000 ML 200 ML IV (06:26)
[2020-10-09] MEDS: INSULIN REGULAR, HUMAN 100 UNIT in SODIUM CHLORIDE 0.9% 100 ML 6 ML IV (06:27)
[2020-10-09] MEDS: HYDROMORPHONE 0.5 MG INJ IV ×8 (06:30→22:10)
[2020-10-09 06:34] LABS: Ketones (Beta-Hydroxybutyrate) 16.79 mmol/L (<0.27)
[2020-10-09 07:04] LABS: Amylase 51 U/L (30-110); Phosphorous 5.8 mg/dL (2.5-4.5)
[2020-10-09 07:05] LABS: Lipase 85 U/L (23-300); Magnesium 2.1 mg/dL (1.6-2.3); Salicylate < 1.0 mg/dL (<20)
[2020-10-09 07:12] LABS: Hemoglobin A1C% w Est Avg Glu > 14.0 % (4.0-6.0)
[2020-10-09 07:38] LABS: COVID19 - ADMIT (NP swab/PCR) Negative (Negative)
--- NOTE | 2020-10-09 07:54 | P.HP_ITS ---
History of Present Illness History of Present Illness Date Patient Seen: 10/09/20 Time Patient Seen: 07:54 Chief complaint: diabetic reaction Narrative: This is a 30 year old female with type 1 Diabetes Mellitus and allergies/pruritus who presents with diabetic ketoacidosis. She has a recurring, quite frequent presentation here and usually resolves within 24 hours of IV fluid/insulin drip. Today's episode began at 4:00 a.m. when she awoke with nausea, dry heaving and aching all over. Last night she had had felt tired and had a poor appetite. Her blood sugars had been in her usual 200's yesterday. She has not had fevers, chills, sweats, dysuria, chest pain, coughing or other signs of an obvious DKA trigger. Her pH on the venous blood gas was 7.08. Presenting blood sugar was 597 with potassium of 5.1, ketones 16.79, A1c greater than 14, lactate of 1.8 and phosphorus of 5.1. Patient History Medical History (Updated 10/09/20 @ 06:35 by Megan Luevano DO) DKA (diabetic ketoacidoses) History of pyelonephritis Irregular menstrual cycle Migraine headache Nephrolithiasis Type 1 diabetes mellitus Surgical History (Updated 10/09/20 @ 09:49 by Susie Parrish RN) History of ureter stent Hx of cataract surgery Hx of local excision of skin lesion Status post laser lithotripsy of ureteral calculus [place] teeth extracted Family & Social History Family History Father In good health Mother Cardiac disease Social History: household members significant other,family Safety & Behavioral: Feels Safe in Current Yes Environment Tobacco & Substance use: Smoking Status Never smoker alcohol intake never alcohol intake frequency holiday/special occasion Substance Use Type does not use Meds Home Medications and Allergies Home Medications Medication Instructions Recorded Confirmed Type glucose 4 gram PO Q15M PRN #30 tab 12/12/18 10/09/20 Rx Glucagon Emergency Kit (human) 1 mg SUBCUT DIRECTED 02/16/19 10/09/20 History insulin degludec 53 unit SUBCUT 1100 11/21/19 10/09/20 History insulin aspart U-100 [Novolog 10 unit SUBCUT AC 05/20/20 10/09/20 History Flexpen U-100 Insulin] diphenhydramine HCl 50 mg PO BEDTIME PRN 09/29/20 10/09/20 History Allergies Allergy/AdvReac Type Severity Reaction Status Date / Time arredondo [ARREDONDO] Allergy Intermediate Hives, Verified 09/29/20 19:50 pruritus iodine [IODINE] Allergy Intermediate rash, itchy Verified 09/29/20 19:50 morphine Allergy Intermediate Difficulty Verified 09/29/20 19:50 Breathing shellfish derived Allergy Intermediate rash Verified 09/29/20 19:50 [SHELLFISH DERIVED] adhesive [ADHESIVE] Allergy Unknown tape Verified 09/29/20 19:50 latex [LATEX] Allergy Unknown Hives Verified 09/29/20 19:50 Review of Systems Review of Systems Narrative: Positive for muscle aches, nausea, dry heaving and itching. Negative for fevers, chills, sweats, chest pain, abdominal pain, coughing, shortness of breath, bleeding, rashes, dysuria, seizures, headaches, trouble talking, new allergies ROS: Yes All systems reviewed with the patient and are negative except as otherwise documented Exam Vital Signs (past 8 hours): - 10/09/20 04:46 10/09/20 05:06 10/09/20 05:30 Temperature 98.8 F Pulse Rate 138 H 132 H 123 H Respiratory Rate 30 H 21 29 H Blood Pressure 112/75 Pulse Oximetry 100 100 100 10/09/20 05:31 10/09/20 06:00 Temperature Pulse Rate 123 H 125 H Respiratory Rate 15 18 Blood Pressure 92/55 L 91/62 Pulse Oximetry 100 100 Oxygen Delivery Method Room Air Narrative Exam Narrative: She is alert and oriented x3, in significant distress from constant itching and muscle aches. Pupils are equally round and reactive to light and accommodation Extraocular muscles are intact Sclerae are pink and nonicteric Throat looks normal No lymph nodes are felt head, neck, supraclavicular area There is no thyromegaly JVD is less than 6 cm No carotid bruits are heard Heart is tachycardic, regular rhythm, no murmur Lungs are clear to auscultation bilaterally Abdomen is soft, bowel sounds positive, nontender, no organomegaly Extremities have no ankle edema Skin there is a slapped cheek appearance on her face. Otherwise there is no rash or jaundice. Neurological exam Deep tendon reflexes are symmetric There is no tremor Motor function is 4/5 throughout Cranial nerves 2-12 test intact Objective Labs Result Diagrams: 10/09/20 05:20 10/09/20 14:25 Labs: Laboratory Results - last 24 hr 10/09/20 10/09/20 10/09/20 04:47 05:20 05:20 WBC 9.2 RBC 4.17 Hgb 13.3 Hct 41.6 MCV 99.9 MCH 31.9 MCHC 31.9 RDW 13.0 Plt Count 525 H Neut % (Auto) 63.2 Lymph % (Auto) 28.9 [place] % (Auto) 6.6 Eos % (Auto) 0.2 L Baso % (Auto) 1.1 Neut # (Auto) 5800 Lymph # (Auto) 2700 [place] # (Auto) 600 Eos # (Auto) 0 Baso # (Auto) 100 VBG pH 7.08 L* VBG pCO2 13.2 L VBG pO2 61 H VBG HCO3 4 L VBG Total CO2 < 5 L VBG O2 Saturation 81 H VBG Base Excess -26.0 L Sodium 135 L Potassium 5.1 D Chloride 100 Carbon Dioxide < 5 L* BUN 22 H Creatinine 0.85 Estimated GFR > 60.0 BUN/Creatinine Ratio 25.9 H Glucose 597 H* D Hemoglobin A1c Lactate Calcium 9.4 Phosphorus Magnesium Total Bilirubin 0.3 AST 19 ALT 18 Alkaline Phosphatase 197 H Total Protein 6.9 Albumin 4.1 Globulin 2.8 Albumin/Globulin Ratio 1.5 Amylase Lipase Procalcitonin 0.10 Salicylates Ketones 16.79 H SARS-CoV-2 (PCR) 10/09/20 10/09/20 10/09/20 05:20 05:20 05:20 WBC RBC Hgb Hct MCV MCH MCHC RDW Plt Count Neut % (Auto) Lymph % (Auto) [place] % (Auto) Eos % (Auto) Baso % (Auto) Neut # (Auto) Lymph # (Auto) [place] # (Auto) Eos # (Auto) Baso # (Auto) VBG pH VBG pCO2 VBG pO2 VBG HCO3 VBG Total CO2 VBG O2 Saturation VBG Base Excess Sodium Potassium Chloride Carbon Dioxide BUN Creatinine Estimated GFR BUN/Creatinine Ratio Glucose Hemoglobin A1c > 14.0 H Lactate 1.8 Calcium Phosphorus 5.8 H D Magnesium Total Bilirubin AST ALT Alkaline Phosphatase Total Protein Albumin Globulin Albumin/Globulin Ratio Amylase Lipase Procalcitonin Salicylates Ketones SARS-CoV-2 (PCR) 10/09/20 10/09/20 10/09/20 05:20 05:20 06:35 WBC RBC Hgb Hct MCV MCH MCHC RDW Plt Count Neut % (Auto) Lymph % (Auto) [place] % (Auto) Eos % (Auto) Baso % (Auto) Neut # (Auto) Lymph # (Auto) [place] # (Auto) Eos # (Auto) Baso # (Auto) VBG pH VBG pCO2 VBG pO2 VBG HCO3 VBG Total CO2 VBG O2 Saturation VBG Base Excess Sodium Potassium Chloride Carbon Dioxide BUN Creatinine Estimated GFR BUN/Creatinine Ratio Glucose Hemoglobin A1c Lactate Calcium Phosphorus Magnesium 2.1 Total Bilirubin AST ALT Alkaline Phosphatase Total Protein Albumin Globulin Albumin/Globulin Ratio Amylase 51 Lipase 85 Procalcitonin Salicylates < 1.0 Ketones SARS-CoV-2 (PCR) Negative Assessment & Plan Assessment & Plan narrative: This is a 30 year old female with type 1 Diabetes Mellitus and allergies/pruritus who presents with diabetic ketoacidosis. Diabetic ketoacidosis, present on admission. Active. -presenting blood sugar of 597 with anion gap and venous pH of 7.08 -continue insulin drip protocol with IV fluid support and trending of electrolytes to supplement potassium when that inevitably falls. -transition to home insulin regimen once anion gap closes and blood sugars are consistently below 250. -she usually corrects within 24 hours and discharges shortly thereafter. -no unusual infection or other trigger is identified. She has avoided COVID vaccination as she is fearful that a vaccination reaction could cause a DKA flare. Type 1 diabetes mellitus poorly controlled, present on admission. Active. -uncontrolled with A1c greater than 14 despite home regimen of aspart 10 units a.c. and 53 units daily in Degludec Chronic allergy pruritis, present on admission. Chronic. -continue her usual Benadryl dose of 50 mg q.6 hours.
[2020-10-09 08:41] LABS: Bacteria Urine None Seen; RBC Urine None Seen (0-5/HPF)
[2020-10-09 08:45] LABS: Appearance Urine UA CLEAR; Bilirubin Urine UA NEGATIVE (NEGATIVE); Color Urine UA YELLOW; Glucose Urine UA 2+ g/dL (Negative); Ketones Urine UA 3+ (NEGATIVE); Leukocyte Esterase Urine UA NEGATIVE (NEGATIVE); Nitrite Urine UA NEGATIVE (Negative); Occult Blood Urine UA TRACE-LYSED (Negative); Protein Urine UA TRACE (Negative); Urobilinogen Urine UA 0.2 E.U./dL (0.2)
[2020-10-09 08:48] LABS: Pregnancy Test Urine Negative (Negative)
[2020-10-09] MEDS: SODIUM CHLORIDE 0.9% 1,000 ML 500 ML IV ×2 (08:55→10:38)
[2020-10-09] MEDS: ENOXAPARIN 40 MG/0.4 ML SYRINGE SUBCUT (08:55)
[2020-10-09] MEDS: diphenhydrAMINE 25 MG TABLET 50 MG PO ×2 (08:56→14:59)
[2020-10-09 08:57] LABS: Culture Indicated Urine Cult Not Indicated; Squamous Epithelial Cell Urine 0-1 /HPF (0-5/HPF); WBC Urine 0-1/HPF (0-5/HPF)
--- NOTE | 2020-10-09 10:04 | PC.NURSE ---
Addendum entered by Susie Parrish R.N. 10/09/20 15:07: Anion gap down to 9 on 1430 labs, reported to Dr. Dubon and insulin gtt d/c'd after 53 units Tresiba administered per MD order. Addendum entered by Susie Parrish R.N. 10/09/20 10:14: Pt's Tresiba insulin pen sent to pharmacy. Original Note: Admit Note Patient arrived to room 227 from ER at about 0800 via stretcher. Walked to bed from stretcher 1 person assist, gait uneven due to pt hesitancy to bear weight on left heel (healing surgical incisions). Alert and oriented x3, intermittently tearful, reporting generalized pain 8/10 along with itchiness. Reported to MD and Dilaudid IV and benadryl PO administered with good effect reported by pt. Insulin gtt infusing at 6 un/hr, CBG 390 at 0900, following DKA protocol for titration. IV fluids reviewed with Dr. Dubon, NS at 500 ml/hr x2 per orders at this time. ST in the 140s on arrival, now in the 120s. Up to void via BSC 1100 ml out and urine sent to lab. SpO2 99-100% on RA. Declines need to lock up any valuables at this time, clothing in room closet. Oriented to room and to bed/tv/call light. Call light within reach, using appropriately to make needs known.
[2020-10-09 11:07] LABS: BUN Creatinine Ratio 33.3 (6-22); Blood Urea Nitrogen 23 mg/dL (7-17); Calcium 8.9 mg/dL (8.4-10.2); Chloride 109 mmol/L (98-107); Estimated Glomerular Filt Rate > 60.0 mL/min (>60); Glucose 243 mg/dL (70-100); HEMOLYSIS < 15 (0-50); Potassium 3.8 mmol/L (3.4-5.1); Sodium 139 mmol/L (137-145)
[2020-10-09 11:08] LABS: PCO2 VBG 25.5 mmHg (45-50)
[2020-10-09 11:09] LABS: HCO3 VBG 10 mmol/L (23-28); Oxygen Saturation VBG 93 % (70-75); PO2 VBG 84 mmHg (35-45); Total CO2 VBG 10 mmol/L (24-29); pH VBG 7.18 (7.33-7.43)
[2020-10-09 11:20] LABS: Carbon Dioxide 8 mmol/L (22-32)
[2020-10-09] MEDS: POTASSIUM CHLORIDE IN WATER 10 MEQ/100 ML PIGGYBACK 100 MEQ IV ×6 (11:42→17:26)
[2020-10-09] MEDS: DEXTROSE 5%-0.45% NS 1,000 ML 58.5 ML IV (12:00)
[2020-10-09] MEDS: DEXTROSE 10 % IN WATER 1,000 ML 39 ML IV (14:00)
--- NOTE | 2020-10-09 14:42 | CM.DANOTE ---
Patient is a 30 year old female READMIT on 10/09/20 for DKA. Pt has [facility] and [facility] for insurance and her PCP is Dr. Maria Ines Limon. EMR was reviewed. Per MD, pt with DKA and admitted for management and then likely d/c home tomorrow if stable. SW met bedside with pt and explained role and pt confirms that she was recently admitted to [facility] on 09/30/20 for similar and was able to d/c home with her mom when stable and outpt follow up. Pt recently had bilateral cataract surgery and MD thinks maybe this or the stress triggered pt's DKA again as she has chronic uncontrolled diabetes. Pt confirms that she has moved in with her mom after her previous admission in Apr 2020 this year and was able to remain stable enough with newer PCP/[facility] Representative that she remained at home in the community from end of Apr to September (longest stretch in a while that pt was not needing hospitalization). Pt plans to return home to her mom's at d/c and mom can provide transport. Wood Polisher orders placed as pt seems to have lost more weight. Plan: SW to follow tomorrow for likely plan of d/c home via mother's POV and any further identified discharge planning needs. RAYMOND Roman Discharge Planning/Care Management CM Discharge Assessment Start: 10/09/20 14:39 Freq: Status: Active Protocol: Document 10/09/20 14:39 BF (Rec: 10/09/20 14:41 BF [id number]) Discharge Planning Assessment Assigned Wire Mesh Gate Assembler RAYMOND Brannon DPOA/Assigned Designee Name none, informally mother Contact Information [phone] Advance Directives? No Advance Directives on File No History Provided By Patient,Medical Record Has Patient been admitted in last 30 Yes days? Comment last admission September 30, 2020 Prior Living Arrangements House Household Members family Type of transporation used prior to Drives own vehicle admit Independent with ADL's Yes Is patient alert and oriented? Yes Needs Assistance With Managing Medications,Home Chores / Shopping Caregiver for Another No Barriers to Discharge No Comment Patient reports new PCP is Dr. Limon at [facility]# [phone]. Discharge Plan Home Transportation Arrangement Mother Argelia will pick her up at d/c Referrals Initiated None needed,Other Whiteboard Updated in Patient Room with Yes name and ext. # of Wire Mesh Gate Assembler Review Status In Process Please Provide Date Initial DC 10/09/20 Assessment Was Performed Next Review Type Continued Stay Review
[2020-10-09 14:45] LABS: HCO3 VBG 15 mmol/L (23-28); Oxygen Saturation VBG 82 % (70-75); PCO2 VBG 40.1 mmHg (45-50); PO2 VBG 57 mmHg (35-45); Total CO2 VBG 16 mmol/L (24-29); pH VBG 7.18 (7.33-7.43)
[2020-10-09 14:46] LABS: BUN Creatinine Ratio 39.6 (6-22); Blood Urea Nitrogen 19 mg/dL (7-17); Calcium 8.6 mg/dL (8.4-10.2); Carbon Dioxide 16 mmol/L (22-32); Chloride 112 mmol/L (98-107); Estimated Glomerular Filt Rate > 60.0 mL/min (>60); Glucose 97 mg/dL (70-100); HEMOLYSIS < 15 (0-50); Potassium 4.3 mmol/L (3.4-5.1); Sodium 137 mmol/L (137-145)
[2020-10-09] MEDS: INSULIN DEGLUDEC 53 EACH SUBCUT (14:57)
[2020-10-09] MEDS: INSULIN LISPRO 100 UNIT/ML 3ML VIAL SUBCUT (20:30)
[2020-10-10 00:20] VITALS: BP 106/90; PULSE 116; RESP 18; TEMP 36.9; O2SAT 99
[2020-10-10] MEDS: HYDROMORPHONE 0.5 MG INJ IV ×3 (00:27→06:25)
[2020-10-10 04:10] VITALS: BP 123/76; PULSE 118; RESP 12; TEMP 37.1; O2SAT 100
[2020-10-10 06:19] LABS: Add Manual Diff / Slide Review NO; Basophils Absolute Auto 100 /uL (0-100); Basophils Percent Auto 1.1 % (0-2); Eosinophils Absolute Auto 0 /uL (0-450); Eosinophils Percent Auto 0.6 % (2-4); Hemoglobin 11.4 g/dL (12.0-16.0); Lymphocytes Absolute Auto 2000 /uL (1100-4500); Lymphocytes Percent Auto 31.2 % (25-40); Mean Corpuscular HGB Conc 33.7 % (30-36); Mean Corpuscular Hemoglobin 32.5 PG (26-34); Mean Corpuscular Volume 96.5 fL (80-100); Monocytes Absolute Auto 600 /uL (0-900); Monocytes Percent Auto 8.7 % (3-14); Neutrophils Absolute Auto 3700 /uL (1500-7000); Neutrophils Percent Auto 58.4 % (50-75); Platelet Count 354 X10^3/uL (150-400); Red Blood Cell Count 3.52 X10^6/uL (4.0-5.2); White Blood Cell Count 6.3 X10^3/uL (4.5-11.0)
[2020-10-10 06:27] LABS: Alanine Aminotransferase 11 IU/L (<35); Albumin 3.1 g/dL (3.5-5.0); Albumin Globulin Ratio 1.2 (1.0-2.8); Alkaline Phosphatase 133 U/L (38-126); Aspartate Aminotransferase 16 IU/L (14-36); BUN Creatinine Ratio 22.4 (6-22); Bilirubin Total 0.2 mg/dL (0.2-1.3); Blood Urea Nitrogen 17 mg/dL (7-17); Calcium 8.9 mg/dL (8.4-10.2); Carbon Dioxide 11 mmol/L (22-32); Chloride 107 mmol/L (98-107); Estimated Glomerular Filt Rate > 60.0 mL/min (>60); Globulin 2.5 g/dL (1.7-4.1); Glucose 411 mg/dL (70-100); HEMOLYSIS < 15 (0-50); Magnesium 1.7 mg/dL (1.6-2.3); Potassium 4.6 mmol/L (3.4-5.1); Sodium 134 mmol/L (137-145); Total Protein 5.6 g/dL (6.3-8.2)
[2020-10-10] MEDS: SODIUM CHLORIDE 0.9% FLUSH 10 ML IV (06:47)
[2020-10-10 08:00] VITALS: BP 109/58; PULSE 120; RESP 12; TEMP 36.8; O2SAT 99
[2020-10-10] MEDS: INSULIN LISPRO 100 UNIT/ML 3ML VIAL SUBCUT (08:44)
[2020-10-10] MEDS: INSULIN DEGLUDEC 53 EACH SUBCUT (08:44)
--- NOTE | 2020-10-10 09:31 | PC.NURSE ---
pt covered with sq lispro and her tresiba insulin per md order and 1pt tearfully said I want these lines out and I'll sign the papers, I'M OUTTA HERE. spoke calmly with pt and and did the things she asked- reminded her to vary the sites of her insulin at home - pt's mother stated that she has scar tissue to upper left thigh, where she usually injects self. iv pain rx has been discontinued and she tearfully explains nothing wlse works- pt encouraged to stay but she decclines- pts mother here to transport to home- PT LEFT AMA at this time
--- NOTE | 2020-10-10 15:53 | CM.DPC ---
DCP AMA Per RN, early this morning pt was adamant about leaving the hospital and could not be convinced to stay for official discharge and chose to leave AMA after signing pwk. RAYMOND Roman
[2020-10-10 19:55] LABS: Osmolality, Serum 336 mOsmol/kg (275-295)
== END 2020-10-10 09:20 | disposition left against medical advice (07) | DRG 639 ==
LOC: ED 06:18 → AC 06:35 → ICU 08:36 → AC 10-10 15:33 → ICU 10-10 15:33
PROVIDERS: Admitting Provider Nurse Practitioner Family; Emergency Provider Emergency Medicine; PCP Student in an Organized Health Care Education/Training Program; Referring Provider Emergency Medicine; Visit Provider Nurse Practitioner Family
DX: E10.10 Type 1 diabetes mellitus with ketoacidosis without coma (principal); L29.9 Pruritus, unspecified; Z20.822 Contact with and (suspected) exposure to COVID-19; Z53.29 Procedure and treatment not carried out because of patient's decision for other reasons
CPT/HCPCS: 36415; 36569; 36592; 80048; 80053; 80329; 81001; 81025; 82009; 82150; 82805; 82962; 83036; 83605; 83690; 83735; 83930; 84100; 84145; 85025; 87040; 87635; 87797; 93005; 96361; 96365; 96366; 96375; 99284; 99291; C9803; G0480; J1170; J1650; J1815; J2405

== ENCOUNTER 2020-10-17 20:23 | Inpatient (IN) | payer MEDICAID, SELFPAY ==
[2020-10-09 09:21] VITALS: BMI 16.2
[2020-10-17] VITALS (9 sets, daily range): BP systolic 108–153; BP diastolic 57–88; PULSE 121–140; RESP 15–29; TEMP 36.6–36.8; O2SAT 95–100
[2020-10-17 20:59] LABS: HCO3 VBG 3 mmol/L (23-28); Oxygen Saturation VBG 76 % (70-75); PCO2 VBG 13.2 mmHg (45-50); PO2 VBG 59 mmHg (35-45)
[2020-10-17 21:00] LABS: pH VBG 7.01 (7.33-7.43)
[2020-10-17 21:04] LABS: Add Manual Diff / Slide Review NO; Basophils Absolute Auto 100 /uL (0-100); Basophils Percent Auto 1.5 % (0-2); Eosinophils Absolute Auto 0 /uL (0-450); Eosinophils Percent Auto 0.2 % (2-4); Hemoglobin 13.4 g/dL (12.0-16.0); Lymphocytes Absolute Auto 2700 /uL (1100-4500); Lymphocytes Percent Auto 29.6 % (25-40); Mean Corpuscular HGB Conc 31.1 % (30-36); Mean Corpuscular Volume 102.7 fL (80-100); Monocytes Absolute Auto 700 /uL (0-900); Monocytes Percent Auto 8.1 % (3-14); Neutrophils Absolute Auto 5400 /uL (1500-7000); Neutrophils Percent Auto 60.6 % (50-75); Platelet Count 481 X10^3/uL (150-400); Red Blood Cell Count 4.18 X10^6/uL (4.0-5.2); Red Cell Distribution Width 13.3 % (11.6-14.8)
[2020-10-17] MEDS: HYDROMORPHONE 1 MG INJ IV (21:08)
[2020-10-17] MEDS: ONDANSETRON 4 MG/2 ML INJ IV (21:08)
[2020-10-17] MEDS: SODIUM CHLORIDE 0.9% 1,000 ML 1000 ML IV (21:11)
[2020-10-17 21:16] LABS: Lactate (Lactic Acid) 1.5 mmol/L (0.7-2.1)
[2020-10-17 21:17] LABS: Alanine Aminotransferase 16 IU/L (<35); Albumin 4.3 g/dL (3.5-5.0); Albumin Globulin Ratio 1.4 (1.0-2.8); Alkaline Phosphatase 203 U/L (38-126); Aspartate Aminotransferase 20 IU/L (14-36); BUN Creatinine Ratio 31.5 (6-22); Bilirubin Total 0.4 mg/dL (0.2-1.3); Blood Urea Nitrogen 28 mg/dL (7-17); Calcium 9.7 mg/dL (8.4-10.2); Chloride 99 mmol/L (98-107); Estimated Glomerular Filt Rate > 60.0 mL/min (>60); Sodium 134 mmol/L (137-145); Total Protein 7.3 g/dL (6.3-8.2)
[2020-10-17 21:18] LABS: Magnesium 2.3 mg/dL (1.6-2.3)
[2020-10-17 21:36] LABS: Procalcitonin 0.09 ng/mL (<0.5)
[2020-10-17 21:44] LABS: Glucose 686 mg/dL (70-100)
[2020-10-17 21:45] LABS: Carbon Dioxide < 5 mmol/L (22-32)
[2020-10-17 22:10] LABS: HEMOLYSIS 25 (0-50); Ketones (Beta-Hydroxybutyrate) 18.87 mmol/L (<0.27)
--- NOTE | 2020-10-17 22:10 | ED.GENADULT ---
HPI - General Adult General Chief complaint: Diabetic Problem Stated complaint: diabetic, dehydration Time Seen by Provider: 10/17/20 20:34 Source: patient and family Mode of arrival: Wheelchair History of Present Illness HPI narrative: Patient is a 30-year-old female who is well known to myself in this hospital for having diabetes and frequent episodes of DKA. Upon my evaluation the patient was sleeping so HPI was provided by her mother. Her mother frequently accompanies her to the emergency department. Her mother states she has been doing ?very well ?she states that she is taking all of her medications as directed. Patient's mother states that this morning the patient started to complain of abdominal discomfort. Very often these are the beginning symptoms of her ending up in the emergency department in DKA. Mother states that last evening the the patient seemed to be doing very well. As the day went on today symptoms worsen, patient started to vomit and that is why her mother brought her into the emergency department. Related Data Home Medications Medication Instructions Recorded Confirmed glucagon (human recombinant) 1 mg 1 mg SUBCUT DIRECTED 02/16/19 10/09/20 solution for injection (Glucagon Emergency Kit) insulin degludec 200 unit/mL (3 53 unit SUBCUT 1100 11/21/19 10/09/20 mL) subcutaneous pen insulin aspart U-100 100 unit/mL 10 unit SUBCUT AC 05/20/20 10/09/20 (3 mL) subcutaneous pen (Novolog Flexpen U-100 Insulin aspart) diphenhydramine HCl 50 mg capsule 50 mg PO BEDTIME PRN 09/29/20 10/09/20 Previous Rx's Medication Instructions Recorded glucose 4 gram chewable tablet 4 gram PO Q15M PRN #30 tab 12/12/18 Allergies Allergy/AdvReac Type Severity Reaction Status Date / Time abdalla [ABDALLA] Allergy Intermediate Hives, Verified 09/29/20 19:50 pruritus iodine [IODINE] Allergy Intermediate rash, itchy Verified 09/29/20 19:50 morphine Allergy Intermediate Difficulty Verified 09/29/20 19:50 Breathing shellfish derived Allergy Intermediate rash Verified 09/29/20 19:50 [SHELLFISH DERIVED] adhesive [ADHESIVE] Allergy Unknown tape Verified 09/29/20 19:50 latex [LATEX] Allergy Unknown Hives Verified 09/29/20 19:50 Review of Systems Review of Systems Narrative: Provided by the patient's mother Constitutional Constitutional: Reports fatigue and Denies fever(s) Cardiovascular Comments: Mother states patient has not been complaining of any chest pain Respiratory Comments: Mother states that patient has been breathing fast Gastrointestinal Gastrointestinal: Reports vomiting Comments: Patient did report abdominal discomfort and nursing staff Genitourinary Comments: No changes in urination Musculoskeletal Comments: Mother states patient has not been reporting any extremity tenderness or joint Integumentary/Breasts Skin/Breast: Denies rash Neurologic Neurologic: Denies behavioral changes Psychiatric Psychiatric: Denies behavioral changes Endocrine Endocrine: Reports fatigue Hematologic/Lymphatic On Anticoagulants: No Allergic/Immunologic Allergic/Immunologic: Reports system reviewed and no additional complaints, except as documented Patient History Medical History DKA (diabetic ketoacidoses) History of pyelonephritis Irregular menstrual cycle Migraine headache Nephrolithiasis Type 1 diabetes mellitus Surgical History History of ureter stent Hx of cataract surgery Hx of local excision of skin lesion Status post laser lithotripsy of ureteral calculus [place] teeth extracted Family History Father In good health Mother Cardiac disease Social History details: Engaged household members: significant other and family Smoking Status: Never smoker alcohol intake: never Smoking Status: Never smoker alcohol intake frequency: holidays/special occasions only Substance Use Type: does not use Exam Initial Vital Signs Initial Vital Signs: Vital Signs Temperature 98.2 F 10/17/20 20:32 Pulse Rate 130 H 10/17/20 20:32 Respiratory Rate 24 10/17/20 20:32 Blood Pressure 153/88 H 10/17/20 20:32 Pulse Oximetry 95 10/17/20 20:32 Const General: ill appearing HENMT Head: normal to inspection and normocephalic Chest Chest: normal inspection of the chest Resp Effort & Inspection: tachypneic Cardio Rate: tachycardic Rhythm: regular rhythm GI Inspection: non-distended Skin General: no rashes or lesions noted Neuro General: moves all extremities Extrem General: normal to inspection and capillary refill normal Psych Appearance: disheveled Course Orders Ordered: ED Orders 10/17/20 20:32 EKG-12 Lead Stat 10/17/20 20:47 Venous Blood Gas Stat 10/17/20 20:49 Blood Culture Stat Complete Blood Count AUTO DIFF Stat Comprehensive Metabolic Panel Stat Ketones (Beta-Hydroxybutyrate) Stat Lactate (Lactic Acid) Stat Magnesium Stat Phosphorous Stat Procalcitonin Stat 10/17/20 21:14 COVID19 - ADMIT ([employer] swab/PCR) Stat Acetaminophen (Acetaminophen 325 Mg Tablet) 650 mg PO Q4HR PRN PRN Reason: Fever Dextrose (Dextrose 50 % In Water 25 Gm/50 Ml Syringe) 25 gm IV PRN PRN PRN Reason: Hypoglycemia Diphenhydramine HCl (Diphenhydramine 25 Mg Tablet) 50 mg PO BEDTIME PRN PRN Reason: Sleep Enoxaparin Sodium (Enoxaparin 40 Mg/0.4 Ml Syringe) 40 mg SUBCUT DAILY BLAISE Hydromorphone HCl (Hydromorphone 0.5 Mg Inj) 0.5 mg IV Q3H PRN PRN Reason: Pain, Moderate (4-6) Last Admin: 10/18/20 02:55 Dose: 0.5 mg Documented by: AMANDA INSULIN DRIP PREMIX (Myxredlin Drip Premix) 100 unit in 100 mls @ 6 mls/hr IV TITRATE BLAISE; Protocol Last Admin: 10/18/20 00:00 Dose: 6 ml/hr, 6 mls/hr Documented by: AMANDA Cosigned by: POLI Sodium Chloride (Normal Saline 0.9%) 1,000 mls @ 250 mls/hr IV CONT BLAISE Last Admin: 10/18/20 00:05 Dose: 250 mls/hr Documented by: AMANDA POTASSIUM CHLORIDE IN WATER (Potassium Cl 10 Meq/100 Ml Suzi) 10 meq in 100 mls @ 100 mls/hr IV Q1H BLAISE Stop: 10/18/20 07:29 Metoclopramide HCl (Metoclopramide 10 Mg/2 Ml Inj) 10 mg IV Q6HR PRN PRN Reason: Nausea And Vomiting Naloxone HCl (Naloxone 0.4 Mg/Ml Vial) 0.2 mg IV Q2MIN PRN PRN Reason: Opiate Reversal Ondansetron HCl (Ondansetron 4 Mg/2 Ml Inj) 4 mg IV Q4HR PRN PRN Reason: Nausea And Vomiting Pantoprazole Sodium (Pantoprazole 40 Mg Vial) 40 mg IV DAILY BLAISE Discontinued Medications Hydromorphone HCl (Hydromorphone 1 Mg Inj) 1 mg IV NOW ONE Stop: 10/17/20 20:56 Last Admin: 10/17/20 21:08 Dose: 1 mg Documented by: NOEL Hydromorphone HCl (Hydromorphone 0.5 Mg Inj) 1 mg IV NOW ONE Stop: 10/17/20 23:47 Last Admin: 10/17/20 23:59 Dose: 1 mg Documented by: AMANDA Sodium Chloride (Normal Saline 0.9%) 1,000 mls @ 1,000 mls/hr IV BOLUS ONE Stop: 10/17/20 21:31 Last Infusion: 10/17/20 22:11 Dose: 0 mls/hr Documented by: Admin: 10/17/20 21:11 Dose: 1,000 mls/hr Documented by: NOEL Insulin Human Regular 100 unit (/ Sodium Chloride) 100 mls @ 6 mls/hr IV TITRATE BLAISE; Protocol Ondansetron HCl (Ondansetron 4 Mg/2 Ml Inj) 4 mg IV NOW ONE Stop: 10/17/20 20:33 Last Admin: 10/17/20 21:08 Dose: 4 mg Documented by: NOEL Vital Signs Vital signs: Vital Signs - 8 hr 10/17/20 20:32 10/17/20 20:53 10/17/20 21:00 Temperature 98.2 F Pulse Rate 130 H 131 H 140 H Respiratory Rate 24 22 29 H Blood Pressure 153/88 H Pulse Oximetry 95 100 99 10/17/20 21:30 10/17/20 21:33 10/17/20 22:00 Temperature Pulse Rate 124 H 124 H 121 H Respiratory Rate 25 H 22 15 Blood Pressure 109/66 108/57 L Pulse Oximetry 99 99 99 10/17/20 22:30 Temperature Pulse Rate 125 H Respiratory Rate 17 Blood Pressure 116/74 Pulse Oximetry 98 Medical Decision Making Medical Records Medical records reviewed: Yes I reviewed the patient's medical records. Lab Data Lab results reviewed: Yes I reviewed the patient's lab results. Result diagrams: 10/17/20 20:49 10/18/20 02:50 Labs: Lab Results 10/17/20 10/17/20 10/17/20 Range/Units 00:05 20:47 20:49 WBC 9.0 (4.5-11.0) X10^3/uL RBC 4.18 (4.0-5.2) X10^6/uL Hgb 13.4 (12.0-16.0) g/dL Hct 43.0 (36-46) % MCV 102.7 H D (80-100) fL MCH 32.0 (26-34) PG MCHC 31.1 (30-36) % RDW 13.3 (11.6-14.8) % Plt Count 481 H (150-400) X10^3/uL Neut % (Auto) 60.6 (50-75) % Lymph % (Auto) 29.6 (25-40) % [place] % (Auto) 8.1 (3-14) % Eos % (Auto) 0.2 L (2-4) % Baso % (Auto) 1.5 (0-2) % Neut # (Auto) 5400 (8433-1015) /uL Lymph # (Auto) 2700 (2041-8522) /uL [place] # (Auto) 700 (0-900) /uL Eos # (Auto) 0 (0-450) /uL Baso # (Auto) 100 (0-100) /uL VBG pH 7.01 L* (7.33-7.43) VBG pCO2 13.2 L (45-50) mmHg VBG pO2 59 H (35-45) mmHg VBG HCO3 3 L (23-28) mmol/L VBG Total CO2 5 L (24-29) mmol/L VBG O2 Saturation 76 H (70-75) % VBG Base Excess -28.0 L (0-4) mmol/L Sodium (137-145) mmol/L Potassium (3.4-5.1) mmol/L Chloride (98-107) mmol/L Carbon Dioxide (22-32) mmol/L BUN (7-17) mg/dL Creatinine (0.52-1.04) mg/dL Estimated GFR (>60) mL/min BUN/Creatinine Ratio (6-22) Glucose (70-100) mg/dL Hemoglobin A1c (4.0-6.0) % Lactate (0.7-2.1) mmol/L Calcium (8.4-10.2) mg/dL Phosphorus (2.5-4.5) mg/dL Magnesium (1.6-2.3) mg/dL Total Bilirubin (0.2-1.3) mg/dL AST (14-36) IU/L ALT (<35) IU/L Alkaline Phosphatase (38-126) U/L Total Protein (6.3-8.2) g/dL Albumin (3.5-5.0) g/dL Globulin (1.7-4.1) g/dL Albumin/Globulin Ratio (1.0-2.8) Procalcitonin (<0.5) ng/mL U Opiates 300ng/mL cut Negative (Negative) Ur Oxycodone Screen Negative (Negative) Urine Methadone Screen Negative (Negative) Ur Barbiturates Screen Negative (Negative) U Tricyclic Antidepress Negative (Negative) Ur Phencyclidine Scrn Negative (Negative) Ur Amphetamines Screen Negative (Negative) U Methamphetamines Scrn Negative (Negative) Ur MDMA Scrn (Ecstasy) Negative (Negative) U Benzodiazepines Scrn Negative (Negative) Urine Cocaine Screen Negative (Negative) U Marijuana (THC) Screen Negative (Negative) Ketones (<0.27) mmol/L SARS-CoV-2 (PCR) (Negative) 10/17/20 10/17/20 10/17/20 Range/Units 20:49 20:49 20:49 WBC (4.5-11.0) X10^3/uL RBC (4.0-5.2) X10^6/uL Hgb (12.0-16.0) g/dL Hct (36-46) % MCV (80-100) fL MCH (26-34) PG MCHC (30-36) % RDW (11.6-14.8) % Plt Count (150-400) X10^3/uL Neut % (Auto) (50-75) % Lymph % (Auto) (25-40) % [place] % (Auto) (3-14) % Eos % (Auto) (2-4) % Baso % (Auto) (0-2) % Neut # (Auto) (9548-9509) /uL Lymph # (Auto) (5933-3753) /uL [place] # (Auto) (0-900) /uL Eos # (Auto) (0-450) /uL Baso # (Auto) (0-100) /uL VBG pH (7.33-7.43) VBG pCO2 (45-50) mmHg VBG pO2 (35-45) mmHg VBG HCO3 (23-28) mmol/L VBG Total CO2 (24-29) mmol/L VBG O2 Saturation (70-75) % VBG Base Excess (0-4) mmol/L Sodium 134 L (137-145) mmol/L Potassium 5.0 (3.4-5.1) mmol/L Chloride 99 (98-107) mmol/L Carbon Dioxide < 5 L* (22-32) mmol/L BUN 28 H (7-17) mg/dL Creatinine 0.89 (0.52-1.04) mg/dL Estimated GFR > 60.0 (>60) mL/min BUN/Creatinine Ratio 31.5 H (6-22) Glucose 686 H* D (70-100) mg/dL Hemoglobin A1c (4.0-6.0) % Lactate 1.5 (0.7-2.1) mmol/L Calcium 9.7 (8.4-10.2) mg/dL Phosphorus 7.0 H D (2.5-4.5) mg/dL Magnesium 2.3 (1.6-2.3) mg/dL Total Bilirubin 0.4 (0.2-1.3) mg/dL AST 20 (14-36) IU/L ALT 16 (<35) IU/L Alkaline Phosphatase 203 H D (38-126) U/L Total Protein 7.3 (6.3-8.2) g/dL Albumin 4.3 (3.5-5.0) g/dL Globulin 3.0 (1.7-4.1) g/dL Albumin/Globulin Ratio 1.4 (1.0-2.8) Procalcitonin 0.09 (<0.5) ng/mL U Opiates 300ng/mL cut (Negative) Ur Oxycodone Screen (Negative) Urine Methadone Screen (Negative) Ur Barbiturates Screen (Negative) U Tricyclic Antidepress (Negative) Ur Phencyclidine Scrn (Negative) Ur Amphetamines Screen (Negative) U Methamphetamines Scrn (Negative) Ur MDMA Scrn (Ecstasy) (Negative) U Benzodiazepines Scrn (Negative) Urine Cocaine Screen (Negative) U Marijuana (THC) Screen (Negative) Ketones 18.87 H (<0.27) mmol/L SARS-CoV-2 (PCR) (Negative) 10/17/20 10/17/20 Range/Units 20:49 21:14 WBC (4.5-11.0) X10^3/uL RBC (4.0-5.2) X10^6/uL Hgb (12.0-16.0) g/dL Hct (36-46) % MCV (80-100) fL MCH (26-34) PG MCHC (30-36) % RDW (11.6-14.8) % Plt Count (150-400) X10^3/uL Neut % (Auto) (50-75) % Lymph % (Auto) (25-40) % [place] % (Auto) (3-14) % Eos % (Auto) (2-4) % Baso % (Auto) (0-2) % Neut # (Auto) (8583-1586) /uL Lymph # (Auto) (2450-7349) /uL [place] # (Auto) (0-900) /uL Eos # (Auto) (0-450) /uL Baso # (Auto) (0-100) /uL VBG pH (7.33-7.43) VBG pCO2 (45-50) mmHg VBG pO2 (35-45) mmHg VBG HCO3 (23-28) mmol/L VBG Total CO2 (24-29) mmol/L VBG O2 Saturation (70-75) % VBG Base Excess (0-4) mmol/L Sodium (137-145) mmol/L Potassium (3.4-5.1) mmol/L Chloride (98-107) mmol/L Carbon Dioxide (22-32) mmol/L BUN (7-17) mg/dL Creatinine (0.52-1.04) mg/dL Estimated GFR (>60) mL/min BUN/Creatinine Ratio (6-22) Glucose (70-100) mg/dL Hemoglobin A1c > 14.0 H (4.0-6.0) % Lactate (0.7-2.1) mmol/L Calcium (8.4-10.2) mg/dL Phosphorus (2.5-4.5) mg/dL Magnesium (1.6-2.3) mg/dL Total Bilirubin (0.2-1.3) mg/dL AST (14-36) IU/L ALT (<35) IU/L Alkaline Phosphatase (38-126) U/L Total Protein (6.3-8.2) g/dL Albumin (3.5-5.0) g/dL Globulin (1.7-4.1) g/dL Albumin/Globulin Ratio (1.0-2.8) Procalcitonin (<0.5) ng/mL U Opiates 300ng/mL cut (Negative) Ur Oxycodone Screen (Negative) Urine Methadone Screen (Negative) Ur Barbiturates Screen (Negative) U Tricyclic Antidepress (Negative) Ur Phencyclidine Scrn (Negative) Ur Amphetamines Screen (Negative) U Methamphetamines Scrn (Negative) Ur MDMA Scrn (Ecstasy) (Negative) U Benzodiazepines Scrn (Negative) Urine Cocaine Screen (Negative) U Marijuana (THC) Screen (Negative) Ketones (<0.27) mmol/L SARS-CoV-2 (PCR) Negative (Negative) ECG Data Interpretation: Sinus tachycardia Ventricular rate of 124 Normal axis Normal QRS Normal QTC No ST T wave changes MDM Narrative Medical decision making narrative: Patient is in DKA. Has an anion gap of 30. Was initially started on fluids. Was given Dilaudid for her generalized abdominal pain. Once labs were resulted she was started on insulin. Discussed the case with an it support engineer niesha with a hospitalist service will admit for further evaluation and treatment. Discussed the admission with the patient's mother who expressed understanding and agreement. Critical Care Time Critical Care Time Critical Care Time: Yes Total Critical Care Time: 40 Attestation: The high probability of a clinically significant, sudden or life threatening deterioration of the endocrine system(s) required my full and direct attention, intervention and personal management. The aggregate critical care time was 40 minutes. This time is in addition to time spent performing reported procedures but includes the following: [X] Data Review and interpretation [X] Patient assessment and monitoring of vital signs [X] Documentation [X] Medication orders and management Discharge Plan Departure Patient Disposition: Admitted As Inpatient Clinical Impression: DKA (diabetic ketoacidoses) Admit Date/Time: 10/17/20 22:30 Admit Provider: Doris Scruggs
[2020-10-17 22:30] LABS: COVID19 - ADMIT (NP swab/PCR) Negative (Negative)
--- NOTE | 2020-10-17 23:14 | P.HP_ITS ---
History of Present Illness History of Present Illness Date Patient Seen: 10/17/20 Time Patient Seen: 22:30 Chief complaint: Diabetic ketoacidosis Narrative: Ms. Sarabjit Jimenes is a 29-year-old female patient with a history significant for poorly controlled type 1 diabetes, frequent admissions for DKA, migraines and irregular menstruation who presents to the ER complaining of DKA. The patient states that she woke up this morning and was feeling terrible with all over body pain, nausea and vomiting. Mother, Argelia in the room states she has only eaten 3 eggs today and had diarrhea all day yesterday she attributed to the unseasonably hot weather. Stated they were unable to keep her glucoses below 500 despite using her correctional scale insuline. She has found that time to have blood sugar 686 with a metabolic acidosis, pH of 7.1. She is unable to provide a meaningful history because of her reported pain and light sensitivity. She had cataract removal and IOL inplantation on October 05 and she states she is unable to see due to the difference in her visual acuity. Upon arrival to the ER the patient is afebrile with temperature 98.2?, tachycardic at 125, blood pressure 116/74, respirations of 17 saturating 98% on room air. CBC is unremarkable.. On chemistry she has a sodium of 134, potassium of 5.0, bicarb of 5, BUN of 28, creatinine 0.89 and phosphorus was 7.0. Her LFTs are within normal range except for her alkaline phosphatase which is chronically elevated and today is found to be 203. She had a VBG with a pH of 7.01, bicarb of 13.2 and a base excess of 28.0. Her ketones are elevated at 18.97. Hemoglobin A1c remains persistently at 14.0. COVID-19 screening is negative. In the ER the patient was immediated started the insulin infusion. The patient received 1 L normal saline bolus, Dilaudid 1 mg IV and Zofran. The patient is admitted to the hospitalist service for DKA. Patient had been going to [facility] however she is attempting to change providers due to ongoing turnover among providers and losing continuity of care at that clinic. Her physician was supposed to have referred her to [facility] and she is still awaiting an appointment call from [facility]. Patient History Medical History DKA (diabetic ketoacidoses) History of pyelonephritis Irregular menstrual cycle Migraine headache Nephrolithiasis Type 1 diabetes mellitus Surgical History History of ureter stent Hx of cataract surgery Hx of local excision of skin lesion Status post laser lithotripsy of ureteral calculus [place] teeth extracted Family & Social History Family History Father In good health Mother Cardiac disease Social History: household members family Tobacco & Substance use: Smoking Status Never smoker alcohol intake never alcohol intake frequency holiday/special occasion Substance Use Type does not use Meds Home Medications and Allergies Home Medications Medication Instructions Recorded Confirmed Type glucose 4 gram chewable tablet 4 gram PO Q15M PRN #30 tab 12/12/18 10/09/20 Rx glucagon (human recombinant) 1 mg 1 mg SUBCUT DIRECTED 02/16/19 10/09/20 History solution for injection (Glucagon Emergency Kit) insulin degludec 200 unit/mL (3 53 unit SUBCUT 1100 11/21/19 10/09/20 History mL) subcutaneous pen insulin aspart U-100 100 unit/mL 10 unit SUBCUT AC 05/20/20 10/09/20 History (3 mL) subcutaneous pen (Novolog Flexpen U-100 Insulin aspart) diphenhydramine HCl 50 mg capsule 50 mg PO BEDTIME PRN 09/29/20 10/09/20 History Allergies Allergy/AdvReac Type Severity Reaction Status Date / Time abdalla [ABDALLA] Allergy Intermediate Hives, Verified 09/29/20 19:50 pruritus iodine [IODINE] Allergy Intermediate rash, itchy Verified 09/29/20 19:50 morphine Allergy Intermediate Difficulty Verified 09/29/20 19:50 Breathing shellfish derived Allergy Intermediate rash Verified 09/29/20 19:50 [SHELLFISH DERIVED] adhesive [ADHESIVE] Allergy Unknown tape Verified 09/29/20 19:50 latex [LATEX] Allergy Unknown Hives Verified 09/29/20 19:50 Review of Systems Review of Systems ROS: Yes All systems reviewed with the patient and are negative except as otherwise documented Exam Vital Signs (past 8 hours): - 10/17/20 20:32 10/17/20 20:53 10/17/20 21:00 Temperature 98.2 F Pulse Rate 130 H 131 H 140 H Respiratory Rate 24 22 29 H Blood Pressure 153/88 H Pulse Oximetry 95 100 99 10/17/20 21:30 10/17/20 21:33 10/17/20 22:00 Temperature Pulse Rate 124 H 124 H 121 H Respiratory Rate 25 H 22 15 Blood Pressure 109/66 108/57 L Pulse Oximetry 99 99 99 10/17/20 22:30 Temperature Pulse Rate 125 H Respiratory Rate 17 Blood Pressure 116/74 Pulse Oximetry 98 Oxygen Delivery Method Room Air Narrative Exam Narrative: Gen: Alert, oriented, thin and ill appearing 30 y.o. female, states is very uncomfortable HEENT: normocephalic, atraumatic, conjunctiva clear, keeps her eyes closed, oral mucosa pink and moist Neck: supple, full ROM, no JVD, trachea is midline Resp: Lungs CTA, non-labored breathing CV: RRR, no murmur or rubs Abd: soft, non-tender, normoactive BTs Skin: no lesions or rashes, dry and intact Neuro: Alert and oriented X 4 w/no focal deficits. Speech clear and coherent. Extremities: moves all 4 extremities, is ambulatory, negative Namita?s sign Psyche: labile Objective Labs Result Diagrams: 10/17/20 20:49 10/17/20 20:49 Labs: Laboratory Results - last 24 hr 10/17/20 10/17/20 10/17/20 20:47 20:49 20:49 WBC 9.0 RBC 4.18 Hgb 13.4 Hct 43.0 MCV 102.7 H D MCH 32.0 MCHC 31.1 RDW 13.3 Plt Count 481 H Neut % (Auto) 60.6 Lymph % (Auto) 29.6 Carbon % (Auto) 8.1 Eos % (Auto) 0.2 L Baso % (Auto) 1.5 Neut # (Auto) 5400 Lymph # (Auto) 2700 Carbon # (Auto) 700 Eos # (Auto) 0 Baso # (Auto) 100 VBG pH 7.01 L* VBG pCO2 13.2 L VBG pO2 59 H VBG HCO3 3 L VBG Total CO2 5 L VBG O2 Saturation 76 H VBG Base Excess -28.0 L Sodium 134 L Potassium 5.0 Chloride 99 Carbon Dioxide < 5 L* BUN 28 H Creatinine 0.89 Estimated GFR > 60.0 BUN/Creatinine Ratio 31.5 H Glucose 686 H* D Lactate Calcium 9.7 Phosphorus Magnesium Total Bilirubin 0.4 AST 20 ALT 16 Alkaline Phosphatase 203 H D Total Protein 7.3 Albumin 4.3 Globulin 3.0 Albumin/Globulin Ratio 1.4 Procalcitonin 0.09 Ketones 18.87 H SARS-CoV-2 (PCR) 10/17/20 10/17/20 10/17/20 20:49 20:49 21:14 WBC RBC Hgb Hct MCV MCH MCHC RDW Plt Count Neut % (Auto) Lymph % (Auto) Carbon % (Auto) Eos % (Auto) Baso % (Auto) Neut # (Auto) Lymph # (Auto) Carbon # (Auto) Eos # (Auto) Baso # (Auto) VBG pH VBG pCO2 VBG pO2 VBG HCO3 VBG Total CO2 VBG O2 Saturation VBG Base Excess Sodium Potassium Chloride Carbon Dioxide BUN Creatinine Estimated GFR BUN/Creatinine Ratio Glucose Lactate 1.5 Calcium Phosphorus 7.0 H D Magnesium 2.3 Total Bilirubin AST ALT Alkaline Phosphatase Total Protein Albumin Globulin Albumin/Globulin Ratio Procalcitonin Ketones SARS-CoV-2 (PCR) Negative Assessment & Plan Assessment & Plan narrative: Clover Jimenes is a 30 y.o. female patient with frequent recurrent episodes of diabetic ketoacidosis who presents today in DKA. She developed body aches with nausea and is found to be in DKA 1. Acute diabetic ketoacidosis, in uncontrolled diabetes mellitus type 1, present on admission, active. * Hemoglobin A1c Has been elevated at greater than 14 % since June of 2018 indicative of poor glycemic control. The patient is awaiting an appointment with a new log turner. * Home dose of insulin is Tresiba 53 mg at 11 a.m., and 7 units of prandial insulin. * Initial blood glucose , VBG pH 7.01, HC03 3, base excess -28. Anion gap is 30. COVID-19 negative. The patient has no indication of infection, WBC is 9.0 * patient given normal saline bolus and was started on insulin drip in the emergency department. Ordered normal saline 200 cc per hour blood sugar is less than 200 changed to D5 half-normal saline at 150 cc/hour. * Will check electrolytes including BMP, magnesium every 4 hours. * will titrate insulin drip with electrolyte replacement per protocol. When blood sugars are stable and anion gap closes, will start patient on consistent carbohydrate diet and resume patient's routine insulin therapy or readjust based on her average hourly insulin intake from when her gap closes per protocol. * recommend patient be arranged for her 1st endocrinology appointment at [facility] upon discharge. 2. Gastroparesis, chronic, stable. * patient with initial complaint of nausea without vomiting upon presentation the ER. * patient received Zofran x1 in the ER, ordered Reglan 10 mg IV q.6 as needed for nausea. * She may have IV dilaudid 0.5 mg q 3 hours as needed until her gap closes VTE prophylaxis: Wells risk score: 1.5 Enoxaparin 40 mg subQ daily Consults: none Patient is admitted under inpatient status with expected length of stay greater than 2 midnights due to severity of presenting symptoms, risk of adverse event, and complexity of treatment plan. FEN: 0.95 NS at 250 ml/hour, NPO except chips, BMP and magnesium in the am in addition to protocol . Dispo: Probable discharge to home Code Status: Full code as discussed with patient COVID-19 COVID-19 status: Negative Result date/Date tested (Pos, Neg/Pending): 10/18/20 Scores Wells' Criteria for PE Clinical signs and symptoms of DVT: No PE is #1 Dx or equally likely: No Heart rate > 100: Yes Immobilization at least 3 days or surg in previous 4 weeks: No History of PE or DVT: No Hemoptysis: No Malignancy w/Treatment within 6 months or palliative: No Wells' PE Score total: 1.5 Quality MIPS - Admit I confirm the patient?s Advance Care Plan is present, Code status is documented, Surrogate decision maker is in patient?s record [If Yes, STOP here]: Yes
[2020-10-17 23:41] LABS: Hemoglobin A1C% w Est Avg Glu > 14.0 % (4.0-6.0)
[2020-10-17] MEDS: HYDROMORPHONE 0.5 MG INJ 1 MG IV (23:59)
[2020-10-18] VITALS (34 sets, daily range): BP systolic 80–128; BP diastolic 48–85; PULSE 96–121; RESP 9–24; TEMP 36.2–36.9; O2SAT 98–100; BMI 16.0
[2020-10-18] MEDS: INSULIN DRIP PREMIX 100 UNIT/100 ML PLAST..BAG 6 UNIT IV
[2020-10-18] MEDS: SODIUM CHLORIDE 0.9% 1,000 ML 250 ML IV ×2 (00:05→03:43)
[2020-10-18 00:06] LABS: UR Morphine/Opiate cutoff 300 Negative (Negative); Ur Creatinine Normal (Normal); Ur Specific Gravity Normal (Normal); Urine Amphetamines Negative (Negative); Urine Barbiturates Negative (Negative); Urine Benzodiazepines Negative (Negative); Urine Cocaine Negative (Negative); Urine MDMA Negative (Negative); Urine Methadone Negative (Negative); Urine Methamphetamines Negative (Negative); Urine Oxycodone Negative (Negative); Urine Phencyclidine Negative (Negative); Urine Tetrahydrocannabinol Negative (Negative); Urine Tricyclic Antidepressant Negative (Negative); Urine pH Normal (Normal)
[2020-10-18 00:17] LABS: BUN Creatinine Ratio 29.8 (6-22); Blood Urea Nitrogen 28 mg/dL (7-17); Calcium 9.4 mg/dL (8.4-10.2); Chloride 102 mmol/L (98-107); Estimated Glomerular Filt Rate > 60.0 mL/min (>60); HEMOLYSIS < 15 (0-50); Sodium 136 mmol/L (137-145)
[2020-10-18 00:31] LABS: Potassium 5.4 mmol/L (3.4-5.1)
[2020-10-18 00:33] LABS: Carbon Dioxide < 5 mmol/L (22-32)
[2020-10-18 00:34] LABS: Glucose 729 mg/dL (70-100)
[2020-10-18 02:18] LABS: Glucose 655 mg/dL (70-100)
[2020-10-18] MEDS: HYDROMORPHONE 0.5 MG INJ IV ×6 (02:55→17:28)
[2020-10-18 03:10] LABS: BUN Creatinine Ratio 35.6 (6-22); Blood Urea Nitrogen 31 mg/dL (7-17); Calcium 9.1 mg/dL (8.4-10.2); Chloride 110 mmol/L (98-107); Estimated Glomerular Filt Rate > 60.0 mL/min (>60); Glucose 478 mg/dL (70-100); HEMOLYSIS < 15 (0-50); Potassium 3.9 mmol/L (3.4-5.1); Sodium 140 mmol/L (137-145)
[2020-10-18 03:14] LABS: Carbon Dioxide < 5 mmol/L (22-32)
[2020-10-18] MEDS: POTASSIUM CHLORIDE IN WATER 10 MEQ/100 ML PIGGYBACK 100 MEQ IV ×8 (03:44→15:46)
[2020-10-18 05:13] LABS: Add Manual Diff / Slide Review NO; Basophils Absolute Auto 200 /uL (0-100); Basophils Percent Auto 1.4 % (0-2); Eosinophils Absolute Auto 0 /uL (0-450); Hematocrit 32.1 % (36-46); Hemoglobin 10.6 g/dL (12.0-16.0); Lymphocytes Absolute Auto 3100 /uL (1100-4500); Lymphocytes Percent Auto 21.2 % (25-40); Mean Corpuscular HGB Conc 33.1 % (30-36); Mean Corpuscular Hemoglobin 32.2 PG (26-34); Mean Corpuscular Volume 97.3 fL (80-100); Monocytes Absolute Auto 1100 /uL (0-900); Monocytes Percent Auto 7.7 % (3-14); Neutrophils Absolute Auto 10300 /uL (1500-7000); Neutrophils Percent Auto 69.7 % (50-75); Platelet Count 342 X10^3/uL (150-400); Red Blood Cell Count 3.29 X10^6/uL (4.0-5.2); Red Cell Distribution Width 12.6 % (11.6-14.8); White Blood Cell Count 14.8 X10^3/uL (4.5-11.0)
[2020-10-18 05:19] LABS: BUN Creatinine Ratio 46.7 (6-22); Blood Urea Nitrogen 28 mg/dL (7-17); Chloride 117 mmol/L (98-107); Estimated Glomerular Filt Rate > 60.0 mL/min (>60); Glucose 241 mg/dL (70-100); HEMOLYSIS 19 (0-50); Magnesium 1.6 mg/dL (1.6-2.3); Potassium 3.9 mmol/L (3.4-5.1); Sodium 140 mmol/L (137-145)
[2020-10-18 05:22] LABS: Carbon Dioxide < 5 mmol/L (22-32)
[2020-10-18] MEDS: DEXTROSE 5%-0.9% NS 1,000 ML 125 ML IV ×2 (05:34→14:09)
[2020-10-18] MEDS: SODIUM BICARB 8.4% VIAL 100 MEQ in DEXTROSE 5% WATER 1,000 ML 50 MEQ IV (08:16)
[2020-10-18] MEDS: PANTOPRAZOLE 40 MG VIAL IV (08:52)
[2020-10-18 09:20] LABS: BUN Creatinine Ratio 61.2 (6-22); Blood Urea Nitrogen 30 mg/dL (7-17); Calcium 8.9 mg/dL (8.4-10.2); Carbon Dioxide 13 mmol/L (22-32); Chloride 115 mmol/L (98-107); Estimated Glomerular Filt Rate > 60.0 mL/min (>60); Glucose 140 mg/dL (70-100); HEMOLYSIS < 15 (0-50); Potassium 4.6 mmol/L (3.4-5.1); Sodium 140 mmol/L (137-145)
--- NOTE | 2020-10-18 10:32 | PM.PN.1 ---
Subjective Subjective Date Patient Seen: 10/18/20 Time Patient Seen: 10:32 Interval history: This is a 30-year-old female with a history of type 1 diabetes and multiple admissions for DKA again admitted with DKA. This morning her bicarb was still ascend 5, her gap has not yet closed, but is improving. She was started on bicarb infusion, however on repeat labs after this was started her bicarb has improved to greater than 10 so bicarb infusion will be stopped. She complains of pain all over this morning, but is starting to feel slightly improved and LEs the largest. Exam Vital Signs (past 8 hours): - 10/18/20 03:00 10/18/20 04:00 10/18/20 04:05 Temperature 97.1 F L Pulse Rate 112 H 117 H Respiratory Rate 10 L 15 Blood Pressure 83/49 L 85/53 L Pulse Oximetry 100 100 10/18/20 05:00 10/18/20 05:55 10/18/20 06:00 Temperature Pulse Rate 115 H 117 H 118 H Respiratory Rate 15 17 13 Blood Pressure 89/57 L 80/48 L Pulse Oximetry 100 100 99 10/18/20 06:55 10/18/20 07:00 10/18/20 07:55 Temperature Pulse Rate 112 H 112 H 115 H Respiratory Rate 14 16 Blood Pressure 89/57 L Pulse Oximetry 100 100 98 10/18/20 08:00 10/18/20 08:55 10/18/20 09:00 Temperature 97.1 F L 97.2 F L Pulse Rate 114 H 114 H 111 H Respiratory Rate 18 14 16 Blood Pressure 98/63 93/60 Pulse Oximetry 100 100 100 10/18/20 09:55 10/18/20 10:00 Temperature Pulse Rate 106 H 106 H Respiratory Rate 16 16 Blood Pressure 101/62 Pulse Oximetry 100 99 Oxygen Delivery Method Room Air Oxygen Flow Rate 0 Narrative Exam Narrative: Gen: Alert, oriented, thin, pale, and ill appearing 30 y.o. female HEENT: normocephalic, atraumatic, conjunctiva clear, keeps her eyes closed, oral mucosa pink and moist Neck: supple, full ROM, no JVD, trachea is midline Resp: Lungs CTA, non-labored breathing CV: RRR, no murmur or rubs Abd: soft, non-tender, normoactive BTs Skin: no lesions or rashes, dry and intact Neuro: Alert and oriented X 4 w/no focal deficits. Speech clear and coherent. Extremities: moves all 4 extremities, is ambulatory, negative Namita?s sign Psyche: tearful, but calm and cooperative. Objective Labs Result Diagrams: 10/18/20 05:00 10/18/20 09:00 Labs: Laboratory Results - last 24 hr 10/17/20 10/17/20 10/17/20 00:05 20:47 20:49 WBC 9.0 RBC 4.18 Hgb 13.4 Hct 43.0 MCV 102.7 H D MCH 32.0 MCHC 31.1 RDW 13.3 Plt Count 481 H Neut % (Auto) 60.6 Lymph % (Auto) 29.6 [place] % (Auto) 8.1 Eos % (Auto) 0.2 L Baso % (Auto) 1.5 Neut # (Auto) 5400 Lymph # (Auto) 2700 [place] # (Auto) 700 Eos # (Auto) 0 Baso # (Auto) 100 VBG pH 7.01 L* VBG pCO2 13.2 L VBG pO2 59 H VBG HCO3 3 L VBG Total CO2 5 L VBG O2 Saturation 76 H VBG Base Excess -28.0 L Sodium Potassium Chloride Carbon Dioxide BUN Creatinine Estimated GFR BUN/Creatinine Ratio Glucose Hemoglobin A1c Lactate Calcium Phosphorus Magnesium Total Bilirubin AST ALT Alkaline Phosphatase Total Protein Albumin Globulin Albumin/Globulin Ratio Procalcitonin Nasal Screen MRSA (PCR) U Opiates 300ng/mL cut Negative Ur Oxycodone Screen Negative Urine Methadone Screen Negative Ur Barbiturates Screen Negative U Tricyclic Antidepress Negative Ur Phencyclidine Scrn Negative Ur Amphetamines Screen Negative U Methamphetamines Scrn Negative Ur MDMA Scrn (Ecstasy) Negative U Benzodiazepines Scrn Negative Urine Cocaine Screen Negative U Marijuana (THC) Screen Negative Ketones SARS-CoV-2 (PCR) 10/17/20 10/17/20 10/17/20 20:49 20:49 20:49 WBC RBC Hgb Hct MCV MCH MCHC RDW Plt Count Neut % (Auto) Lymph % (Auto) [place] % (Auto) Eos % (Auto) Baso % (Auto) Neut # (Auto) Lymph # (Auto) [place] # (Auto) Eos # (Auto) Baso # (Auto) VBG pH VBG pCO2 VBG pO2 VBG HCO3 VBG Total CO2 VBG O2 Saturation VBG Base Excess Sodium 134 L Potassium 5.0 Chloride 99 Carbon Dioxide < 5 L* BUN 28 H Creatinine 0.89 Estimated GFR > 60.0 BUN/Creatinine Ratio 31.5 H Glucose 686 H* D Hemoglobin A1c Lactate 1.5 Calcium 9.7 Phosphorus 7.0 H D Magnesium 2.3 Total Bilirubin 0.4 AST 20 ALT 16 Alkaline Phosphatase 203 H D Total Protein 7.3 Albumin 4.3 Globulin 3.0 Albumin/Globulin Ratio 1.4 Procalcitonin 0.09 Nasal Screen MRSA (PCR) U Opiates 300ng/mL cut Ur Oxycodone Screen Urine Methadone Screen Ur Barbiturates Screen U Tricyclic Antidepress Ur Phencyclidine Scrn Ur Amphetamines Screen U Methamphetamines Scrn Ur MDMA Scrn (Ecstasy) U Benzodiazepines Scrn Urine Cocaine Screen U Marijuana (THC) Screen Ketones 18.87 H SARS-CoV-2 (PCR) 10/17/20 10/17/20 10/17/20 20:49 21:14 23:00 WBC RBC Hgb Hct MCV MCH MCHC RDW Plt Count Neut % (Auto) Lymph % (Auto) [place] % (Auto) Eos % (Auto) Baso % (Auto) Neut # (Auto) Lymph # (Auto) [place] # (Auto) Eos # (Auto) Baso # (Auto) VBG pH VBG pCO2 VBG pO2 VBG HCO3 VBG Total CO2 VBG O2 Saturation VBG Base Excess Sodium Potassium Chloride Carbon Dioxide BUN Creatinine Estimated GFR BUN/Creatinine Ratio Glucose Hemoglobin A1c > 14.0 H Lactate Calcium Phosphorus Magnesium Total Bilirubin AST ALT Alkaline Phosphatase Total Protein Albumin Globulin Albumin/Globulin Ratio Procalcitonin Nasal Screen MRSA (PCR) Negative for mrsa U Opiates 300ng/mL cut Ur Oxycodone Screen Urine Methadone Screen Ur Barbiturates Screen U Tricyclic Antidepress Ur Phencyclidine Scrn Ur Amphetamines Screen U Methamphetamines Scrn Ur MDMA Scrn (Ecstasy) U Benzodiazepines Scrn Urine Cocaine Screen U Marijuana (THC) Screen Ketones SARS-CoV-2 (PCR) Negative 10/17/20 10/18/20 10/18/20 23:50 01:42 01:42 WBC RBC Hgb Hct MCV MCH MCHC RDW Plt Count Neut % (Auto) Lymph % (Auto) [place] % (Auto) Eos % (Auto) Baso % (Auto) Neut # (Auto) Lymph # (Auto) [place] # (Auto) Eos # (Auto) Baso # (Auto) VBG pH VBG pCO2 VBG pO2 VBG HCO3 VBG Total CO2 VBG O2 Saturation VBG Base Excess Sodium 136 L Potassium 5.4 H Chloride 102 Carbon Dioxide < 5 L* BUN 28 H Creatinine 0.94 Estimated GFR > 60.0 BUN/Creatinine Ratio 29.8 H Glucose 729 H* 655 H* Hemoglobin A1c Lactate Calcium 9.4 Phosphorus Magnesium Total Bilirubin AST ALT Alkaline Phosphatase Total Protein Albumin 4.0 Globulin Albumin/Globulin Ratio Procalcitonin Nasal Screen MRSA (PCR) U Opiates 300ng/mL cut Ur Oxycodone Screen Urine Methadone Screen Ur Barbiturates Screen U Tricyclic Antidepress Ur Phencyclidine Scrn Ur Amphetamines Screen U Methamphetamines Scrn Ur MDMA Scrn (Ecstasy) U Benzodiazepines Scrn Urine Cocaine Screen U Marijuana (THC) Screen Ketones SARS-CoV-2 (PCR) 10/18/20 10/18/20 10/18/20 02:50 05:00 05:00 WBC 14.8 H D RBC 3.29 L Hgb 10.6 L Hct 32.1 L MCV 97.3 D MCH 32.2 MCHC 33.1 RDW 12.6 Plt Count 342 Neut % (Auto) 69.7 Lymph % (Auto) 21.2 L [place] % (Auto) 7.7 Eos % (Auto) 0.0 L Baso % (Auto) 1.4 Neut # (Auto) 30992 H Lymph # (Auto) 3100 [place] # (Auto) 1100 H Eos # (Auto) 0 Baso # (Auto) 200 H VBG pH VBG pCO2 VBG pO2 VBG HCO3 VBG Total CO2 VBG O2 Saturation VBG Base Excess Sodium 140 140 Potassium 3.9 D 3.9 Chloride 110 H 117 H Carbon Dioxide < 5 L* < 5 L* BUN 31 H 28 H Creatinine 0.87 0.60 Estimated GFR > 60.0 > 60.0 BUN/Creatinine Ratio 35.6 H 46.7 H Glucose 478 H D 241 H D Hemoglobin A1c Lactate Calcium 9.1 8.0 L Phosphorus Magnesium 1.6 Total Bilirubin AST ALT Alkaline Phosphatase Total Protein Albumin Globulin Albumin/Globulin Ratio Procalcitonin Nasal Screen MRSA (PCR) U Opiates 300ng/mL cut Ur Oxycodone Screen Urine Methadone Screen Ur Barbiturates Screen U Tricyclic Antidepress Ur Phencyclidine Scrn Ur Amphetamines Screen U Methamphetamines Scrn Ur MDMA Scrn (Ecstasy) U Benzodiazepines Scrn Urine Cocaine Screen U Marijuana (THC) Screen Ketones SARS-CoV-2 (PCR) 10/18/20 09:00 WBC RBC Hgb Hct MCV MCH MCHC RDW Plt Count Neut % (Auto) Lymph % (Auto) [place] % (Auto) Eos % (Auto) Baso % (Auto) Neut # (Auto) Lymph # (Auto) [place] # (Auto) Eos # (Auto) Baso # (Auto) VBG pH VBG pCO2 VBG pO2 VBG HCO3 VBG Total CO2 VBG O2 Saturation VBG Base Excess Sodium 140 Potassium 4.6 Chloride 115 H Carbon Dioxide 13 L BUN 30 H Creatinine 0.49 L Estimated GFR > 60.0 BUN/Creatinine Ratio 61.2 H Glucose 140 H D Hemoglobin A1c Lactate Calcium 8.9 Phosphorus Magnesium Total Bilirubin AST ALT Alkaline Phosphatase Total Protein Albumin Globulin Albumin/Globulin Ratio Procalcitonin Nasal Screen MRSA (PCR) U Opiates 300ng/mL cut Ur Oxycodone Screen Urine Methadone Screen Ur Barbiturates Screen U Tricyclic Antidepress Ur Phencyclidine Scrn Ur Amphetamines Screen U Methamphetamines Scrn Ur MDMA Scrn (Ecstasy) U Benzodiazepines Scrn Urine Cocaine Screen U Marijuana (THC) Screen Ketones SARS-CoV-2 (PCR) PFSH Medical History DKA (diabetic ketoacidoses) History of pyelonephritis Irregular menstrual cycle Migraine headache Nephrolithiasis Type 1 diabetes mellitus Surgical History History of ureter stent Hx of cataract surgery Hx of local excision of skin lesion Status post laser lithotripsy of ureteral calculus [place] teeth extracted Family History Father In good health Mother Cardiac disease Social History details: Engaged household members: significant other and family Smoking Status: Never smoker alcohol intake: never Assessment & Plan Assessment & Plan narrative: Clover Jimenes is a 30 y.o. female patient with frequent recurrent episodes of diabetic ketoacidosis who presents today in DKA. She developed body aches with nausea and is found to be in DKA 1. Acute diabetic ketoacidosis, in uncontrolled diabetes mellitus type 1, present on admission, active. Hemoglobin A1c Has been elevated at greater than 14 % since June of 2018 indicative of poor glycemic control. The patient is awaiting an appointment with a new rotor winder. Home dose of insulin is Tresiba 53 mg at 11 a.m., and 7 units of prandial insulin. Initial blood glucose , VBG pH 7.01, HC03 3, base excess -28. Anion gap is 30. COVID-19 negative. The patient has no indication of infection, WBC is 9.0 will titrate insulin drip with electrolyte replacement per protocol. Gap is now closed but bicarb still low at 13. Will continue insulin infusion until bicarb >16, gap remains closed , and sugars are controlled. Next lab is at 1300, expect to be able to start home insulin at that time. switch to LR instead of NS if sugars are high, otherwise D5W for fluids per protocol. 2. Gastroparesis, chronic, stable. patient with initial complaint of nausea without vomiting upon presentation the ER. patient received Zofran x1 in the ER, ordered Reglan 10 mg IV q.6 as needed for nausea. She may have IV dilaudid 0.5 mg q 3 hours as needed until her gap closes I spent 35 minutes providing critical care management this patient. This excludes time spent in performing separately billed procedures.
[2020-10-18] MEDS: diphenhydrAMINE 50 MG/ML VIAL 25 MG IV ×2 (13:32→22:54)
[2020-10-18 14:02] LABS: Blood Urea Nitrogen 25 mg/dL (7-17); Calcium 8.8 mg/dL (8.4-10.2); Carbon Dioxide 19 mmol/L (22-32); Chloride 116 mmol/L (98-107); Estimated Glomerular Filt Rate > 60.0 mL/min (>60); Glucose 116 mg/dL (70-100); HEMOLYSIS < 15 (0-50); Potassium 4.1 mmol/L (3.4-5.1); Sodium 140 mmol/L (137-145)
--- NOTE | 2020-10-18 14:57 | PC.NURSE ---
Day Shift Note Pt tearful/crying throughout shift but is cooperative with care. On insulin gtt, titrating per DKA protocol. D5NS at 125 ml/hr. K riders being administered per DKA protocol. Dilaudid administered for generalized pain of 8/10. SpO2 99% RA. ST this morning but now SR in the 90s. Call light within reach. Tresiba pen sent to pharmacy for potential use this afternoon. Call light within reach, using appropriately to make needs known.
[2020-10-18 15:00] LABS: Bacteria Urine None Seen
[2020-10-18 15:03] LABS: Appearance Urine UA CLEAR; Bilirubin Urine UA 1+ (NEGATIVE); Color Urine UA YELLOW; Glucose Urine UA 1+ g/dL (Negative); Ketones Urine UA 1+ (NEGATIVE); Leukocyte Esterase Urine UA TRACE (NEGATIVE); Nitrite Urine UA NEGATIVE (Negative); Occult Blood Urine UA 2+ (Negative); Protein Urine UA 1+ (Negative); Urobilinogen Urine UA 0.2 E.U./dL (0.2)
[2020-10-18 15:06] LABS: Pregnancy Test Urine Negative (Negative)
[2020-10-18 15:21] LABS: Culture Indicated Urine Cult Not Indicated; Hyaline Casts Urine 1-5/LPF; Ictotest Urine Negative (Negative); RBC Urine 0-1/HPF (0-5/HPF); Squamous Epithelial Cell Urine 0-1 /HPF (0-5/HPF); WBC Urine 1-5/HPF (0-5/HPF)
[2020-10-18] MEDS: INSULIN SUBCUT (15:47)
[2020-10-18] MEDS: INSULIN DEGLUDEC 100 UNIT/ML SUBCUT (15:47)
--- NOTE | 2020-10-18 16:14 | CM.DANOTE ---
DCP ASSESSMENT: Patient is a 30 year-old female admitted to hospital for diabetic Ketoacidosis. PCP Maria Ines Limon. Primary payer is [facility] and Medicaid. Patient has had two recent hospital admissions 09/29 and 10/09. During her last admission she left AMA. MEDIA CLERK Student met with patient at bedside she was alert oriented and presented crying and complaining of being in pain. Educated patient of social work role in discharge foster care case manager. She provided permission for this health science writer to talk with her mother Argelia . Patient reported she is independent with ADL?s at baseline and lives with family members. She stated she follows up with Dr. Maria Ines Limon for diabetes management she is not established with an Director Operations but, would like help getting care at [facility] in [place]. Spoke with her mother Argelia who confirmed patient had a referral about a year ago that was never followed-up on. Called and left message with Dede (admin secretary) for Dr. Hong requesting a new Endocrinology referral be placed. Dede confirmed the last referral was for [facility] in [place]. Patient and mother Argelia aware referral has been requested. Once the referral is processed patient will have to schedule appointment. PLAN: Anticipate home when medically stable. Patient denied any need for community resources at this time. CM Team to continue to follow. PCP notified a referral is needed to see Endocrinology in [place]. RAYMOND Valladares MSW Student Discharge Planning/Care Management CM Discharge Assessment Start: 10/18/20 14:39 Freq: Status: Active Protocol: Document 10/18/20 14:40 AL (Rec: 10/18/20 14:43 AL [id number]) Discharge Planning Assessment Assigned Forder Operator RAYMOND Jean-Baptiste Student Contact Information Argelia Malone, mother Advance Directives? No Advance Directives on File No History Provided By Patient,Medical Record Has Patient been admitted in last 30 Yes days? Comment 09/29 dehydration and 10/09 diabetic reaction Prior Living Arrangements House Household Members significant other,family Type of transporation used prior to Drives own vehicle admit Independent with ADL's Yes Is patient alert and oriented? Yes Caregiver for Another No Barriers to Discharge No Comment PCP is Dr. Limon at [facility] ph# . She said she would like help getting established at [facility]. Discharge Plan Home Transportation Arrangement Mother Argelia will provide transportation at time of D/C Referrals Initiated None needed,Other Whiteboard Updated in Patient Room with Yes name and ext. # of Forder Operator Review Status In Process
--- NOTE | 2020-10-18 16:32 | PC.NURSE ---
Patient lying in bed, tearful reassessed pain, rates pain 5/10 generalized to all over her body. Order given for diet, tresiba given as ordered.
[2020-10-18] MEDS: INSULIN LISPRO 100 UNIT/ML 3ML VIAL 6 UNIT SUBCUT (17:12)
[2020-10-18] MEDS: INSULIN LISPRO 100 UNIT/ML 3ML VIAL SUBCUT (17:13)
[2020-10-18 19:55] LABS: Total CO2 VBG < 5 mmol/L (24-29)
[2020-10-18] MEDS: SODIUM CHLORIDE 0.9% FLUSH 10 ML IV ×2 (21:11→22:54)
[2020-10-19 00:20] VITALS: BP 90/54; PULSE 102; RESP 13; TEMP 36.6; O2SAT 97
[2020-10-19 04:00] VITALS: BP 93/53; PULSE 98; RESP 12; TEMP 36.6; O2SAT 98
[2020-10-19 05:04] LABS: Add Manual Diff / Slide Review NO; Basophils Absolute Auto 0 /uL (0-100); Basophils Percent Auto 0.5 % (0-2); Eosinophils Absolute Auto 0 /uL (0-450); Eosinophils Percent Auto 0.7 % (2-4); Hematocrit 30.9 % (36-46); Hemoglobin 10.8 g/dL (12.0-16.0); Lymphocytes Absolute Auto 1600 /uL (1100-4500); Lymphocytes Percent Auto 25.5 % (25-40); Mean Corpuscular HGB Conc 34.9 % (30-36); Mean Corpuscular Hemoglobin 33.2 PG (26-34); Mean Corpuscular Volume 95.1 fL (80-100); Monocytes Absolute Auto 600 /uL (0-900); Monocytes Percent Auto 9.5 % (3-14); Neutrophils Absolute Auto 4100 /uL (1500-7000); Neutrophils Percent Auto 63.8 % (50-75); Platelet Count 321 X10^3/uL (150-400); Red Blood Cell Count 3.25 X10^6/uL (4.0-5.2); Red Cell Distribution Width 13.3 % (11.6-14.8); White Blood Cell Count 6.5 X10^3/uL (4.5-11.0)
[2020-10-19 05:09] LABS: Blood Urea Nitrogen 26 mg/dL (7-17); Calcium 8.7 mg/dL (8.4-10.2); Carbon Dioxide 21 mmol/L (22-32); Chloride 112 mmol/L (98-107); Estimated Glomerular Filt Rate > 60.0 mL/min (>60); Glucose 120 mg/dL (70-100); HEMOLYSIS < 15 (0-50); Magnesium 1.9 mg/dL (1.6-2.3); Potassium 3.8 mmol/L (3.4-5.1); Sodium 136 mmol/L (137-145)
[2020-10-19 08:00] VITALS: BP 96/66; PULSE 106; RESP 16; TEMP 36.9; O2SAT 98
--- NOTE | 2020-10-19 08:12 | PM.DS.1 ---
History of Present Illness History of Present Illness Date Patient Seen: 10/19/20 Time Patient Seen: 08:12 Chief complaint: Diabetic ketoacidosis Narrative: SHARYN Bah: Ms. Sarabjit Jimenes is a 29-year-old female patient with a history significant for poorly controlled type 1 diabetes, frequent admissions for DKA, migraines and irregular menstruation who presents to the ER complaining of DKA. The patient states that she woke up this morning and was feeling terrible with all over body pain, nausea and vomiting. Mother, Argelia in the room states she has only eaten 3 eggs today and had diarrhea all day yesterday she attributed to the unseasonably hot weather. Stated they were unable to keep her glucoses below 500 despite using her correctional scale insuline. She has found that time to have blood sugar 686 with a metabolic acidosis, pH of 7.1. She is unable to provide a meaningful history because of her reported pain and light sensitivity. She had cataract removal and IOL inplantation on October 05 and she states she is unable to see due to the difference in her visual acuity. Upon arrival to the ER the patient is afebrile with temperature 98.2?, tachycardic at 125, blood pressure 116/74, respirations of 17 saturating 98% on room air. CBC is unremarkable.. On chemistry she has a sodium of 134, potassium of 5.0, bicarb of 5, BUN of 28, creatinine 0.89 and phosphorus was 7.0. Her LFTs are within normal range except for her alkaline phosphatase which is chronically elevated and today is found to be 203. She had a VBG with a pH of 7.01, bicarb of 13.2 and a base excess of 28.0. Her ketones are elevated at 18.97. Hemoglobin A1c remains persistently at 14.0. COVID-19 screening is negative. In the ER the patient was immediated started the insulin infusion. The patient received 1 L normal saline bolus, Dilaudid 1 mg IV and Zofran. The patient is admitted to the hospitalist service for DKA. Patient had been going to [facility] however she is attempting to change providers due to ongoing turnover among providers and losing continuity of care at that clinic. Her physician was supposed to have referred her to [facility] and she is still awaiting an appointment call from [facility]. Discharge Providers Provider Date of admission: 10/17/20 22:30 Discharge Date: 10/19/20 Primary care physician: Maria Ines Limon DO Consults: 10/17/20 23:10 Consult After Hours PICC Line RN Routine Comment: 10/18/20 Consult to SCHOOL CHILD CARE ATTENDANT - Hospital Administrative Assistant Routine Comment: Admitted for DKA, JULIA request 10/18/20 02:05 Consult to Dietitian, Adult Routine Comment: Reason For Exam: weight loss Discharge provider: Julio Cesar Weinberg DO Summary Hospital Course Discharge Diagnosis: 1. Acute diabetic ketoacidosis, in uncontrolled diabetes mellitus type 1, present on admission, active. 2. Gastroparesis, chronic, stable. Hospital Course: This is a 30-year-old female with a past medical history of type 1 diabetes with frequent prior admissions for diabetic ketoacidosis and gastroparesis. She again presented in DKA which quickly resolved with insulin infusion therapy. This time she required a bicarbinate infusion for severe acidosis with a bicarb of <5.She was resumed on her home Tresiba after resolution of her ketoacidosis with controlled blood sugars following. Infectious workup was unremarkable and the patient endorse taking her usual medications consistent with prior episodes of DKA. She states this episode was related to the historic heat wave and she had difficulty getting her sugars down with insulin. No medication changes were recommended at the time of discharge. Exam Vital Signs (past 8 hours): - 10/19/20 00:20 10/19/20 04:00 Temperature 97.8 F 97.9 F Pulse Rate 102 H 98 H Respiratory Rate 13 12 Blood Pressure 90/54 L 93/53 L Pulse Oximetry 97 98 Oxygen Delivery Method Room Air Oxygen Flow Rate 0 Narrative Exam Narrative: Gen: Alert, oriented, thin, pale, and ill appearing 30 y.o. female HEENT: normocephalic, atraumatic, conjunctiva clear, keeps her eyes closed, oral mucosa pink and moist Neck: supple, full ROM, no JVD, trachea is midline Resp: Lungs CTA, non-labored breathing CV: RRR, no murmur or rubs Abd: soft, non-tender, normoactive BTs Skin: no lesions or rashes, dry and intact Neuro: Alert and oriented X 4 w/no focal deficits. Speech clear and coherent. Extremities: moves all 4 extremities, is ambulatory, negative Namita?s sign Psyche: tearful, but calm and cooperative. Objective Labs Result Diagrams: 10/19/20 04:30 10/19/20 04:30 Labs: Laboratory Results - last 24 hr 10/17/20 10/18/20 10/18/20 20:47 09:00 13:40 WBC RBC Hgb Hct MCV MCH MCHC RDW Plt Count Neut % (Auto) Lymph % (Auto) [place] % (Auto) Eos % (Auto) Baso % (Auto) Neut # (Auto) Lymph # (Auto) [place] # (Auto) Eos # (Auto) Baso # (Auto) VBG Total CO2 < 5 L Sodium 140 140 Potassium 4.6 4.1 Chloride 115 H 116 H Carbon Dioxide 13 L 19 L BUN 30 H 25 H Creatinine 0.49 L 0.41 L Estimated GFR > 60.0 > 60.0 BUN/Creatinine Ratio 61.2 H 61.0 H Glucose 140 H D 116 H Calcium 8.9 8.8 Magnesium Urine Color Urine Appearance Urine pH Ur Specific [place] Urine Protein Urine Glucose (UA) Urine Ketones Urine Occult Blood Urine Nitrate Urine Bilirubin Ur Bilirubin Confirm Urine Urobilinogen Ur Leukocyte Esterase Urine RBC Urine WBC Ur Squamous Epith Cells Urine Bacteria Hyaline Casts Ur Culture Indicated? Urine Test 10/18/20 10/18/20 10/19/20 14:45 14:45 04:30 WBC 6.5 D RBC 3.25 L Hgb 10.8 L Hct 30.9 L MCV 95.1 MCH 33.2 MCHC 34.9 RDW 13.3 Plt Count 321 Neut % (Auto) 63.8 Lymph % (Auto) 25.5 [place] % (Auto) 9.5 Eos % (Auto) 0.7 L Baso % (Auto) 0.5 Neut # (Auto) 4100 Lymph # (Auto) 1600 [place] # (Auto) 600 Eos # (Auto) 0 Baso # (Auto) 0 VBG Total CO2 Sodium Potassium Chloride Carbon Dioxide BUN Creatinine Estimated GFR BUN/Creatinine Ratio Glucose Calcium Magnesium Urine Color Yellow Urine Appearance Clear Urine pH 5.0 Ur Specific [place] 1.020 Urine Protein 1+ H Urine Glucose (UA) 1+ H Urine Ketones 1+ H Urine Occult Blood 2+ H Urine Nitrate Negative Urine Bilirubin 1+ H Ur Bilirubin Confirm Negative Urine Urobilinogen 0.2 Ur Leukocyte Esterase Trace H Urine RBC 0-1/hpf Urine WBC 1-5/hpf Ur Squamous Epith Cells 0-1 /hpf Urine Bacteria None seen Hyaline Casts 1-5/lpf Ur Culture Indicated? Cult not indicated Urine Test Negative 10/19/20 04:30 WBC RBC Hgb Hct MCV MCH MCHC RDW Plt Count Neut % (Auto) Lymph % (Auto) [place] % (Auto) Eos % (Auto) Baso % (Auto) Neut # (Auto) Lymph # (Auto) [place] # (Auto) Eos # (Auto) Baso # (Auto) VBG Total CO2 Sodium 136 L Potassium 3.8 Chloride 112 H Carbon Dioxide 21 L BUN 26 H Creatinine 0.40 L Estimated GFR > 60.0 BUN/Creatinine Ratio 65.0 H Glucose 120 H Calcium 8.7 Magnesium 1.9 Urine Color Urine Appearance Urine pH Ur Specific [place] Urine Protein Urine Glucose (UA) Urine Ketones Urine Occult Blood Urine Nitrate Urine Bilirubin Ur Bilirubin Confirm Urine Urobilinogen Ur Leukocyte Esterase Urine RBC Urine WBC Ur Squamous Epith Cells Urine Bacteria Hyaline Casts Ur Culture Indicated? Urine Test [facility] Medical History DKA (diabetic ketoacidoses) History of pyelonephritis Irregular menstrual cycle Migraine headache Nephrolithiasis Type 1 diabetes mellitus Surgical History History of ureter stent Hx of cataract surgery Hx of local excision of skin lesion Status post laser lithotripsy of ureteral calculus [place] teeth extracted Family History Father In good health Mother Cardiac disease Social History details: Engaged household members: significant other and family Smoking Status: Never smoker alcohol intake: never Discharge Plan Discharge Plan Patient Disposition: Home Provider Discharge Comment: You were admitted to the hospital with DKA, improved with insulin infusion. Blood sugars controlled on home medications. No changes are recommended. Discharge orders & Medications Prescriptions: Continued glucose 4 gram tablet,chewable 4 gram PO Q15M PRN (Reason: hypoglycemia) Qty: 30 RF: 0 Glucagon Emergency Kit (human) 1 mg recon soln 1 mg subcut DIRECTED RF: 0 insulin degludec 200 unit/mL (3 mL) Insulin Pen 53 unit SUBCUT 1100 RF: 0 insulin aspart U-100 [Novolog Flexpen U-100 Insulin] 100 unit/mL (3 mL) insulin pen 10 unit SUBCUT AC RF: 0 diphenhydramine HCl 50 mg Capsule 50 mg PO BEDTIME PRN (Reason: Sleep) RF: 0 Follow up/Referrals: Maria Ines Limon, [Primary Care Provider] - Diet/Activity/Treatments Diet: Diet as Tolerated and Carb-consistent/Diabetic Activity: As tolerated Discharge Data Primary Care Provider: Maria Ines Limon
[2020-10-19] MEDS: INSULIN LISPRO 100 UNIT/ML 3ML VIAL 6 UNIT SUBCUT (08:25)
[2020-10-19] MEDS: PANTOPRAZOLE 40 MG VIAL IV (08:27)
[2020-10-19] MEDS: diphenhydrAMINE 50 MG/ML VIAL 25 MG IV (08:28)
--- NOTE | 2020-10-19 10:11 | PC.NURSE ---
Discharge Note Pt discharged to home with mother Argelia at 1000. Escorted to hospital exit via wheelchair by staff member. Written and verbal D/C instructions given on DKA, acknowledged understanding. No voids documented overnight, pt declined needing to void prior to d/c and reports she went twice before breakfast. Tresiba pen returned to patient. No valuables in safe.
== END 2020-10-19 10:00 | disposition home or self-care (01) | DRG 639 ==
LOC: ED 20:34 → AC 22:37 → ICU 10-18 08:08 → AC 10-21 15:53 → ICU 10-21 15:53
PROVIDERS: Internal Medicine; Admitting Provider Nurse Practitioner Family; Emergency Provider Emergency Medicine; PCP Student in an Organized Health Care Education/Training Program; Referring Provider Emergency Medicine; Visit Provider Nurse Practitioner Family
DX: E10.10 Type 1 diabetes mellitus with ketoacidosis without coma (principal); Z79.4 Long term (current) use of insulin; E10.43 Type 1 diabetes mellitus with diabetic autonomic (poly)neuropathy; K31.84 Gastroparesis; Z20.822 Contact with and (suspected) exposure to COVID-19
CPT/HCPCS: 36415; 36592; 80048; 80053; 80305; 81001; 81025; 82009; 82040; 82805; 82947; 82962; 83036; 83605; 83735; 84100; 84145; 85025; 87040; 87635; 87797; 93005; 96361; 96374; 96375; 99284; 99291; C9803; C9113; J1170; J1200; J1642; J1650; J1815; J2405

== ENCOUNTER 2020-12-05 08:13 | Inpatient (IN) | payer MEDICAID, OTHER, SELFPAY ==
[2020-10-18 01:55] VITALS: BMI 16.0
[2020-12-05] VITALS (21 sets, daily range): BP systolic 82–128; BP diastolic 52–72; PULSE 88–124; RESP 7–20; TEMP 35.7–36.6; O2SAT 97–100; BMI 17.9; BMI 17.4
--- NOTE | 2020-12-05 08:37 | ED.GENADULT ---
HPI - General Adult General Chief complaint: Diabetic Problem Stated complaint: Type 1 diabetic, having issues Time Seen by Provider: 12/05/20 08:15 Source: patient Mode of arrival: Ambulatory Limitations: no limitations History of Present Illness HPI narrative: 30-year-old female. Type 1 diabetic. Well known to myself in this emergency department is having frequent episodes of DKA. She states that last night she started to not feel very well. Approximately 0100 hours in the morning she woke up feeling very nauseous. Took a nausea medication and then woke up this morning feeling much worse. States she hurts all over. She checked her blood sugar at home and was elevated. She did dose herself with her insulin. Continues to feel very poorly. Related Data Home Medications Medication Instructions Recorded Confirmed glucagon (human recombinant) 1 mg 1 mg SUBCUT DIRECTED 02/16/19 12/05/20 solution for injection (Glucagon Emergency Kit) insulin degludec 200 unit/mL (3 53 unit SUBCUT 1100 11/21/19 12/05/20 mL) subcutaneous pen insulin aspart U-100 100 unit/mL 10 unit SUBCUT AC 05/20/20 12/05/20 (3 mL) subcutaneous pen (Novolog Flexpen U-100 Insulin aspart) diphenhydramine HCl 50 mg capsule 50 mg PO BEDTIME PRN 09/29/20 12/05/20 Previous Rx's Medication Instructions Recorded glucose 4 gram chewable tablet 4 gram PO Q15M PRN #30 tab 12/12/18 Allergies Allergy/AdvReac Type Severity Reaction Status Date / Time abdalla [ABDALLA] Allergy Intermediate Hives, Verified 09/29/20 19:50 pruritus iodine [IODINE] Allergy Intermediate rash, itchy Verified 09/29/20 19:50 morphine Allergy Intermediate Difficulty Verified 09/29/20 19:50 Breathing shellfish derived Allergy Intermediate rash Verified 09/29/20 19:50 [SHELLFISH DERIVED] adhesive [ADHESIVE] Allergy Unknown tape Verified 09/29/20 19:50 latex [LATEX] Allergy Unknown Hives Verified 09/29/20 19:50 Review of Systems Constitutional Comments: No fevers Eyes Eyes: Reports system reviewed and no additional complaints, except as documented ENT Ears, Nose, Mouth, and Throat: Reports system reviewed and no additional complaints, except as documented Cardiovascular Cardiovascular: Reports system reviewed and no additional complaints, except as documented Respiratory Respiratory: Reports system reviewed and no additional complaints, except as documented Gastrointestinal Gastrointestinal: Reports abdominal pain, Reports nausea and Reports vomiting Genitourinary Genitourinary: Reports system reviewed and no additional complaints, except as documented Musculoskeletal Musculoskeletal: Reports myalgias Integumentary/Breasts Skin/Breast: Reports system reviewed and no additional complaints, except as documented Neurologic Neurologic: Reports system reviewed and no additional complaints, except as documented Psychiatric Psychiatric: Reports system reviewed and no additional complaints, except as documented Endocrine Endocrine: Reports system reviewed and no additional complaints, except as documented Hematologic/Lymphatic On Anticoagulants: No Allergic/Immunologic Allergic/Immunologic: Reports system reviewed and no additional complaints, except as documented Patient History Medical History DKA (diabetic ketoacidoses) History of pyelonephritis Irregular menstrual cycle Migraine headache Nephrolithiasis Type 1 diabetes mellitus Surgical History History of ureter stent Hx of cataract surgery Hx of local excision of skin lesion Status post laser lithotripsy of ureteral calculus [place] teeth extracted Family History Father In good health Mother Cardiac disease Social History details: Engaged household members: significant other and family Smoking Status: Never smoker alcohol intake: never Smoking Status: Never smoker alcohol intake frequency: holidays/special occasions only Substance Use Type: does not use Exam Initial Vital Signs Initial Vital Signs: Vital Signs Temperature 97.5 F L 12/05/20 08:24 Pulse Rate 116 H 12/05/20 08:24 Respiratory Rate 20 12/05/20 08:24 Blood Pressure 128/72 12/05/20 08:24 Pulse Oximetry 97 12/05/20 08:24 Const General: cooperative and well groomed Nutritional Appearance: underweight HENMT Head: normal to inspection Eyes General: appearance normal, both eyes and all related structures Neck Neck: normal visual inspection Chest Chest: normal inspection of the chest Resp Effort & Inspection: not labored and tachypneic Auscultation: clear to auscultation bilaterally Cardio Palpation: normal PMI Rate: regular rate GI Inspection: normal to inspection and non-distended Palpation: tender Skin General: no rashes or lesions noted Neuro General: patient alert, patient awake, patient oriented x3 and moves all extremities Speech: speech normal Gait: normal gait Extrem General: normal to inspection and capillary refill normal Psych Appearance: grossly normal and well kempt Scores GCS [place] coma scale eye opening: Spontaneous Alex coma scale verbal response: Orientated [place] coma scale motor response: Obey commands Alex coma scale total score: 15 Course Orders Ordered: ED Orders 12/05/20 08:17 EKG-12 Lead Stat 12/05/20 08:50 COVID19 - ADMIT (BET TAKER swab/PCR) Stat Complete Blood Count AUTO DIFF Stat Comprehensive Metabolic Panel Stat Ethanol (ETOH) Stat Ketones (Beta-Hydroxybutyrate) Stat Lactate (Lactic Acid) Stat Lipase Stat Magnesium Stat Phosphorous Stat Test Serum,Qual Stat 12/05/20 09:17 Arterial Blood Gas Stat 12/05/20 12:58 Urinalysis and Microscopic Stat Acetaminophen (Acetaminophen 325 Mg Tablet) 650 mg PO Q6HR PRN PRN Reason: Fever/Mild Pain (1-3) INSULIN DRIP PREMIX (Myxredlin Drip Premix) 100 unit in 100 mls @ 6 mls/hr IV TITRATE BLAISE; Protocol Last Admin: 12/05/20 12:25 Dose: 6.3 mls/hr, 6.3 mls/hr Documented by: MARLINE Cosigned by: JESSICA Sodium Chloride (Normal Saline 0.9%) 1,000 mls @ 500 mls/hr IV BOLUS ONE Stop: 12/05/20 14:57 Last Admin: 12/05/20 12:58 Dose: 500 mls/hr Documented by: MARLINE Ketorolac Tromethamine (Ketorolac 30 Mg/Ml Vial) 30 mg IV Q6H BLAISE Stop: 12/10/20 11:55 Last Admin: 12/05/20 13:44 Dose: 30 mg Documented by: MARLINE Naloxone HCl (Naloxone 0.4 Mg/Ml Vial) 0.2 mg IV Q2MIN PRN PRN Reason: Opiate Reversal Stored In Pharmacy - Tresiba (Insulin Degludec) 0 each SUBCUT PRN PRN PRN Reason: . Ondansetron HCl (Ondansetron 4 Mg/2 Ml Inj) 4 mg IV Q4HR PRN PRN Reason: Nausea And Vomiting Tramadol HCl (Tramadol 50 Mg Tablet) 50 mg PO QID PRN PRN Reason: Pain, Moderate (4-6) Last Admin: 12/05/20 13:08 Dose: 50 mg Documented by: MARLINE Discontinued Medications Hydromorphone HCl (Hydromorphone 1 Mg Inj) 1 mg IV NOW ONE Stop: 12/05/20 09:43 Last Admin: 12/05/20 09:48 Dose: 1 mg Documented by: CANDE Sodium Chloride (Normal Saline 0.9%) 1,000 mls @ 1,000 mls/hr IV BOLUS ONE Stop: 12/05/20 09:14 Last Infusion: 12/05/20 10:15 Dose: 0 mls/hr Documented by: Admin: 12/05/20 09:13 Dose: 1,000 mls/hr Documented by: HANDER INSULIN DRIP PREMIX (Myxredlin Drip Premix) 100 unit in 100 mls @ 6 mls/hr IV TITRATE BLAISE; Protocol Last Titration: 12/05/20 12:20 Dose: 0 mls/hr, 0 mls/hr Documented by: CANDE Cosigned by: AURELIO Admin: 12/05/20 10:36 Dose: 6 mls/hr, 6 mls/hr Documented by: CANDE Cosigned by: SHERWIN Sodium Chloride (Normal Saline 0.9%) 1,000 mls @ 150 mls/hr IV CONT BLAISE Last Infusion: 12/05/20 12:20 Dose: 0 mls/hr Documented by: Admin: 12/05/20 11:40 Dose: 150 mls/hr Documented by: CANDE Vital Signs Vital signs: Vital Signs - 8 hr 12/05/20 08:24 12/05/20 09:00 12/05/20 09:30 Temperature 97.5 F L Pulse Rate 116 H 113 H 122 H Respiratory Rate 20 10 L 11 L Blood Pressure 128/72 Pulse Oximetry 97 100 100 12/05/20 10:00 12/05/20 10:30 12/05/20 11:00 Temperature Pulse Rate 111 H 105 H 105 H Respiratory Rate 14 11 L 10 L Blood Pressure Pulse Oximetry 100 100 100 12/05/20 11:04 Temperature Pulse Rate 107 H Respiratory Rate 10 L Blood Pressure 96/58 L Pulse Oximetry 100 Medical Decision Making Medical Records Medical records reviewed: Yes I reviewed the patient's medical records. Lab Data Lab results reviewed: Yes I reviewed the patient's lab results. Result diagrams: 12/05/20 08:50 12/05/20 08:50 Labs: Lab Results 12/05/20 12/05/20 12/05/20 Range/Units 08:50 08:50 08:50 WBC 9.2 (4.5-11.0) X10^3/uL RBC 4.38 (4.0-5.2) X10^6/uL Hgb 14.3 (12.0-16.0) g/dL Hct 43.4 (36-46) % MCV 99.1 (80-100) fL MCH 32.6 (26-34) PG MCHC 32.9 (30-36) % RDW 12.8 (11.6-14.8) % Plt Count 389 (150-400) X10^3/uL Neut % (Auto) 64.5 (50-75) % Lymph % (Auto) 27.3 (25-40) % [place] % (Auto) 6.5 (3-14) % Eos % (Auto) 0.5 L (2-4) % Baso % (Auto) 1.2 (0-2) % Neut # (Auto) 6000 (9021-3454) /uL Lymph # (Auto) 2500 (7948-2872) /uL [place] # (Auto) 600 (0-900) /uL Eos # (Auto) 0 (0-450) /uL Baso # (Auto) 100 (0-100) /uL ABG pH (7.35-7.45) ABG pCO2 (35-45) mmHg ABG pO2 (80-100) mmHg ABG HCO3 (22-26) mmol/L ABG Total CO2 (21-31) mmol/L ABG O2 Saturation (95-100) % ABG Base Excess (-2-2) mmol/L FiO2 Sodium 130 L (137-145) mmol/L Potassium 5.1 (3.4-5.1) mmol/L Chloride 95 L (98-107) mmol/L Carbon Dioxide 7 L* (22-32) mmol/L BUN 20 H (7-17) mg/dL Creatinine 0.64 (0.52-1.04) mg/dL Estimated GFR > 60.0 (>60) mL/min BUN/Creatinine Ratio 31.3 H (6-22) Glucose 699 H* (70-100) mg/dL Lactate 1.5 (0.7-2.1) mmol/L Calcium 9.4 (8.4-10.2) mg/dL Phosphorus (2.5-4.5) mg/dL Magnesium 2.1 (1.6-2.3) mg/dL Total Bilirubin 0.5 (0.2-1.3) mg/dL AST 26 (14-36) IU/L ALT 20 (<35) IU/L Alkaline Phosphatase 227 H (38-126) U/L Total Protein 7.3 (6.3-8.2) g/dL Albumin 4.4 (3.5-5.0) g/dL Globulin 2.9 (1.7-4.1) g/dL Albumin/Globulin Ratio 1.5 (1.0-2.8) Lipase 180 (23-300) U/L Serum , Qual (Negative) Ethyl Alcohol < 10 ( - 10) mg/dL Ketones 15.90 H (<0.27) mmol/L SARS-CoV-2 (PCR) (Negative) 12/05/20 12/05/20 12/05/20 Range/Units 08:50 08:50 08:50 WBC (4.5-11.0) X10^3/uL RBC (4.0-5.2) X10^6/uL Hgb (12.0-16.0) g/dL Hct (36-46) % MCV (80-100) fL MCH (26-34) PG MCHC (30-36) % RDW (11.6-14.8) % Plt Count (150-400) X10^3/uL Neut % (Auto) (50-75) % Lymph % (Auto) (25-40) % [place] % (Auto) (3-14) % Eos % (Auto) (2-4) % Baso % (Auto) (0-2) % Neut # (Auto) (6072-0068) /uL Lymph # (Auto) (3154-0189) /uL [place] # (Auto) (0-900) /uL Eos # (Auto) (0-450) /uL Baso # (Auto) (0-100) /uL ABG pH (7.35-7.45) ABG pCO2 (35-45) mmHg ABG pO2 (80-100) mmHg ABG HCO3 (22-26) mmol/L ABG Total CO2 (21-31) mmol/L ABG O2 Saturation (95-100) % ABG Base Excess (-2-2) mmol/L FiO2 Sodium (137-145) mmol/L Potassium (3.4-5.1) mmol/L Chloride (98-107) mmol/L Carbon Dioxide (22-32) mmol/L BUN (7-17) mg/dL Creatinine (0.52-1.04) mg/dL Estimated GFR (>60) mL/min BUN/Creatinine Ratio (6-22) Glucose (70-100) mg/dL Lactate (0.7-2.1) mmol/L Calcium (8.4-10.2) mg/dL Phosphorus 4.4 (2.5-4.5) mg/dL Magnesium (1.6-2.3) mg/dL Total Bilirubin (0.2-1.3) mg/dL AST (14-36) IU/L ALT (<35) IU/L Alkaline Phosphatase (38-126) U/L Total Protein (6.3-8.2) g/dL Albumin (3.5-5.0) g/dL Globulin (1.7-4.1) g/dL Albumin/Globulin Ratio (1.0-2.8) Lipase (23-300) U/L Serum , Qual Negative (Negative) Ethyl Alcohol ( - 10) mg/dL Ketones (<0.27) mmol/L SARS-CoV-2 (PCR) Negative (Negative) 12/05/20 Range/Units 09:17 WBC (4.5-11.0) X10^3/uL RBC (4.0-5.2) X10^6/uL Hgb (12.0-16.0) g/dL Hct (36-46) % MCV (80-100) fL MCH (26-34) PG MCHC (30-36) % RDW (11.6-14.8) % Plt Count (150-400) X10^3/uL Neut % (Auto) (50-75) % Lymph % (Auto) (25-40) % [place] % (Auto) (3-14) % Eos % (Auto) (2-4) % Baso % (Auto) (0-2) % Neut # (Auto) (2051-7561) /uL Lymph # (Auto) (2973-6331) /uL [place] # (Auto) (0-900) /uL Eos # (Auto) (0-450) /uL Baso # (Auto) (0-100) /uL ABG pH 7.20 L* (7.35-7.45) ABG pCO2 15.4 L* (35-45) mmHg ABG pO2 141 H (80-100) mmHg ABG HCO3 6 L (22-26) mmol/L ABG Total CO2 6 L (21-31) mmol/L ABG O2 Saturation 99 (95-100) % ABG Base Excess -22.0 L (-2-2) mmol/L FiO2 0.21 Sodium (137-145) mmol/L Potassium (3.4-5.1) mmol/L Chloride (98-107) mmol/L Carbon Dioxide (22-32) mmol/L BUN (7-17) mg/dL Creatinine (0.52-1.04) mg/dL Estimated GFR (>60) mL/min BUN/Creatinine Ratio (6-22) Glucose (70-100) mg/dL Lactate (0.7-2.1) mmol/L Calcium (8.4-10.2) mg/dL Phosphorus (2.5-4.5) mg/dL Magnesium (1.6-2.3) mg/dL Total Bilirubin (0.2-1.3) mg/dL AST (14-36) IU/L ALT (<35) IU/L Alkaline Phosphatase (38-126) U/L Total Protein (6.3-8.2) g/dL Albumin (3.5-5.0) g/dL Globulin (1.7-4.1) g/dL Albumin/Globulin Ratio (1.0-2.8) Lipase (23-300) U/L Serum , Qual (Negative) Ethyl Alcohol ( - 10) mg/dL Ketones (<0.27) mmol/L SARS-CoV-2 (PCR) (Negative) Point of Care Testing Glucose POC 500 Point of care testing: Point of Care Testing Glucose POC 500 ECG Data Attestation: I personally reviewed and interpreted this ECG as follows: Interpretation: Sinus tachycardia Ventricular rate 112 Normal axis Normal QRS Normal QTC No ST T wave changes MDM Narrative Medical decision making narrative: Patient is well-known to myself involved on to this department. Is a brittle diabetic. Has had multiple episodes of DKA in the past. Arrives today with physical exam and labs consistent with DKA. The does not appear to be any signs of infection. test is negative. Patient started on fluids. Electrolytes unremarkable. Started on insulin. Low suspicion for pneumonia supple hold out a chest x-ray for now. Discussed the case with Dr. Sauer with Internal Medicine who will admit for further evaluation treatment. I did discuss the patient with the patient and mother at bedside. They expressed understanding and agreement. Critical Care Time Critical Care Time Critical Care Time: Yes Total Critical Care Time: 40 Attestation: The high probability of a clinically significant, sudden or life threatening deterioration of the endocrine, cardiovascular, respiratory system(s) required my full and direct attention, intervention and personal management. The aggregate critical care time was 40 minutes. This time is in addition to time spent performing reported procedures but includes the following: [x] Data Review and interpretation [x] Patient assessment and monitoring of vital signs [x] Documentation [x] Medication orders and management Discharge Plan Departure Patient Disposition: Admitted As Inpatient Clinical Impression: DKA (diabetic ketoacidoses) Admit Date/Time: 12/05/20 11:18 Admit Provider: Ky Sauer
[2020-12-05 09:02] LABS: Add Manual Diff / Slide Review NO; Basophils Absolute Auto 100 /uL (0-100); Basophils Percent Auto 1.2 % (0-2); Eosinophils Absolute Auto 0 /uL (0-450); Eosinophils Percent Auto 0.5 % (2-4); Hematocrit 43.4 % (36-46); Hemoglobin 14.3 g/dL (12.0-16.0); Lymphocytes Absolute Auto 2500 /uL (1100-4500); Lymphocytes Percent Auto 27.3 % (25-40); Mean Corpuscular HGB Conc 32.9 % (30-36); Mean Corpuscular Hemoglobin 32.6 PG (26-34); Mean Corpuscular Volume 99.1 fL (80-100); Monocytes Absolute Auto 600 /uL (0-900); Monocytes Percent Auto 6.5 % (3-14); Neutrophils Absolute Auto 6000 /uL (1500-7000); Neutrophils Percent Auto 64.5 % (50-75); Platelet Count 389 X10^3/uL (150-400); Red Blood Cell Count 4.38 X10^6/uL (4.0-5.2); Red Cell Distribution Width 12.8 % (11.6-14.8); White Blood Cell Count 9.2 X10^3/uL (4.5-11.0)
[2020-12-05] MEDS: SODIUM CHLORIDE 0.9% 1,000 ML 1000 ML IV (09:13)
[2020-12-05 09:18] LABS: HEMOLYSIS 25 (0-50)
[2020-12-05 09:21] LABS: Lactate (Lactic Acid) 1.5 mmol/L (0.7-2.1)
[2020-12-05 09:23] LABS: Alanine Aminotransferase 20 IU/L (<35); Albumin 4.4 g/dL (3.5-5.0); Albumin Globulin Ratio 1.5 (1.0-2.8); Alkaline Phosphatase 227 U/L (38-126); Aspartate Aminotransferase 26 IU/L (14-36); BUN Creatinine Ratio 31.3 (6-22); Bilirubin Total 0.5 mg/dL (0.2-1.3); Blood Urea Nitrogen 20 mg/dL (7-17); Calcium 9.4 mg/dL (8.4-10.2); Chloride 95 mmol/L (98-107); Estimated Glomerular Filt Rate > 60.0 mL/min (>60); Ethanol (ETOH) < 10 mg/dL; Globulin 2.9 g/dL (1.7-4.1); Lipase 180 U/L (23-300); Magnesium 2.1 mg/dL (1.6-2.3); Phosphorous 4.4 mg/dL (2.5-4.5); Potassium 5.1 mmol/L (3.4-5.1); Sodium 130 mmol/L (137-145); Total Protein 7.3 g/dL (6.3-8.2)
[2020-12-05 09:26] LABS: Fractionated Inspired Oxygen 0.21; HCO3 ABG 6 mmol/L (22-26); Oxygen Saturation ABG 99 % (95-100); PCO2 ABG 15.4 mmHg (35-45); PO2 ABG 141 mmHg (80-100); TCO2 ABG 6 mmol/L (21-31)
[2020-12-05 09:27] LABS: Pregnancy Test Serum,Qual Negative (Negative)
[2020-12-05] MEDS: HYDROMORPHONE 1 MG INJ IV (09:48)
[2020-12-05 09:57] LABS: Carbon Dioxide 7 mmol/L (22-32); Glucose 699 mg/dL (70-100)
[2020-12-05 10:07] LABS: COVID19 - ADMIT (NP swab/PCR) Negative (Negative)
[2020-12-05] MEDS: INSULIN DRIP PREMIX 100 UNIT/100 ML PLAST..BAG 6 UNIT IV (10:36)
[2020-12-05] MEDS: SODIUM CHLORIDE 0.9% 1,000 ML 150 ML IV (11:40)
[2020-12-05] MEDS: INSULIN DRIP PREMIX 100 UNIT/100 ML PLAST..BAG 6.3 UNIT IV (12:25)
[2020-12-05] MEDS: SODIUM CHLORIDE 0.9% 1,000 ML 500 ML IV (12:58)
[2020-12-05 13:06] LABS: Bacteria Urine None Seen; RBC Urine None Seen (0-5/HPF)
[2020-12-05] MEDS: TRAMADOL 50 MG TABLET PO ×3 (13:08→20:22)
[2020-12-05 13:11] LABS: Appearance Urine UA CLEAR; Bilirubin Urine UA NEGATIVE (NEGATIVE); Color Urine UA YELLOW; Glucose Urine UA 2+ g/dL (Negative); Ketones Urine UA 3+ (NEGATIVE); Leukocyte Esterase Urine UA NEGATIVE (NEGATIVE); Nitrite Urine UA NEGATIVE (Negative); Occult Blood Urine UA NEGATIVE (Negative); Protein Urine UA TRACE (Negative); Urobilinogen Urine UA 0.2 E.U./dL (0.2)
--- NOTE | 2020-12-05 13:23 | PC.NURSE ---
1225- Pt admitted to rm 229 from ED via stretcher. VSS, ST on bedside monitor. BG greater than 500. electrical tech notified of need to obtain spec. Spoke with hospitalist regarding BGs, IVFs, insulin gtt rate. Orders received. Pt oriented to room, routine, call light. Sent pt's own med (tresiba) to pharmacy. Supportive mom at bedside. 1300- Lab unable to obtain spec. States will send someone else to attempt.
[2020-12-05 13:32] LABS: Culture Indicated Urine Specimen Cultured; WBC Urine 5-10/HPF (0-5/HPF)
[2020-12-05] MEDS: KETOROLAC 30 MG/ML VIAL IV ×2 (13:44→18:21)
[2020-12-05 14:11] LABS: HCO3 VBG 11 mmol/L (23-28); Oxygen Saturation VBG 29 % (70-75); PO2 VBG 23 mmHg (35-45); Total CO2 VBG 12 mmol/L (24-29); pH VBG 7.17 (7.33-7.43)
[2020-12-05 14:55] LABS: BUN Creatinine Ratio 35.7 (6-22); Blood Urea Nitrogen 20 mg/dL (7-17); Calcium 8.6 mg/dL (8.4-10.2); Carbon Dioxide 11 mmol/L (22-32); Chloride 105 mmol/L (98-107); Estimated Glomerular Filt Rate > 60.0 mL/min (>60); Glucose 422 mg/dL (70-100); HEMOLYSIS 18 (0-50); Potassium 4.2 mmol/L (3.4-5.1); Sodium 136 mmol/L (137-145)
[2020-12-05] MEDS: SODIUM CHLORIDE 0.9% 1,000 ML 250 ML IV (15:46)
[2020-12-05] MEDS: POTASSIUM CHLORIDE IN WATER 10 MEQ/100 ML PIGGYBACK 100 MEQ IV ×4 (15:46→21:44)
--- NOTE | 2020-12-05 15:56 | PM.HP.1 ---
History of Present Illness History of Present Illness Date Patient Seen: 12/05/20 Time Patient Seen: 11:00 Chief complaint: Type 1 diabetic, having issues Narrative: Ms. Jimenes is a 29W with PMH of poorly controlled type 1 diabetes with frequent admissions for DKA, migraines who presents to the ED complaining of feeling terrible. She said she began feeling nauseous overnight, and she now hurts all over. She checked her blood sugar at home and it was elevated. She says she has not missed any of her insulin. She denied having any fevers, cough, shortness of breath, diarrhea, dysuria. She became tearful as soon as I entered the room. She states that she is waiting to hear back from [facility] endocrinology about an appointment In the ED workup was done, she was afebrile with T 97.5, HR 116, blood pressure normal and normal o2 saturation at 97% on room air. Labs notable for unremakable CBC. Sodium 130, potassium 5.1, chloride 95, co2 7, creatinine 0.64. Glucose 699. Lactate 1.5. Ketones 15.9. Phos 4.4. ABG with pH 7.2, pcO2 15, paO2 141, hco3 6. She was ordered for IV insulin, IV fluids, pain medications and admitted for DKA. Patient History Medical History DKA (diabetic ketoacidoses) History of pyelonephritis Irregular menstrual cycle Migraine headache Nephrolithiasis Type 1 diabetes mellitus Surgical History History of ureter stent Hx of cataract surgery Hx of local excision of skin lesion Status post laser lithotripsy of ureteral calculus [place] teeth extracted Family & Social History Family History Father In good health Mother Cardiac disease Social History: household members significant other,family Safety & Behavioral: Feels Safe in Current Yes Environment Been Physically Hurt or No Threatened By a Person Tobacco & Substance use: Smoking Status Never smoker alcohol intake never alcohol intake frequency holiday/special occasion Substance Use Type does not use Meds Home Medications and Allergies Home Medications Medication Instructions Recorded Confirmed Type glucose 4 gram chewable tablet 4 gram PO Q15M PRN #30 tab 12/12/18 12/05/20 Rx glucagon (human recombinant) 1 mg 1 mg SUBCUT DIRECTED 02/16/19 12/05/20 History solution for injection (Glucagon Emergency Kit) insulin degludec 200 unit/mL (3 53 unit SUBCUT 1100 11/21/19 12/05/20 History mL) subcutaneous pen insulin aspart U-100 100 unit/mL 10 unit SUBCUT AC 05/20/20 12/05/20 History (3 mL) subcutaneous pen (Novolog Flexpen U-100 Insulin aspart) diphenhydramine HCl 50 mg capsule 50 mg PO BEDTIME PRN 09/29/20 12/05/20 History Allergies Allergy/AdvReac Type Severity Reaction Status Date / Time abdalla [ABDALLA] Allergy Intermediate Hives, Verified 09/29/20 19:50 pruritus iodine [IODINE] Allergy Intermediate rash, itchy Verified 09/29/20 19:50 morphine Allergy Intermediate Difficulty Verified 09/29/20 19:50 Breathing shellfish derived Allergy Intermediate rash Verified 09/29/20 19:50 [SHELLFISH DERIVED] adhesive [ADHESIVE] Allergy Unknown tape Verified 09/29/20 19:50 latex [LATEX] Allergy Unknown Hives Verified 09/29/20 19:50 Review of Systems Review of Systems Narrative: 14 systems reviewed and negative aside from what is noted in HPI Exam Vital Signs (past 8 hours): - 12/05/20 08:24 12/05/20 09:00 12/05/20 09:30 Temperature 97.5 F L Pulse Rate 116 H 113 H 122 H Respiratory Rate 20 10 L 11 L Blood Pressure 128/72 Pulse Oximetry 97 100 100 12/05/20 10:00 12/05/20 10:30 12/05/20 11:00 Temperature Pulse Rate 111 H 105 H 105 H Respiratory Rate 14 11 L 10 L Blood Pressure Pulse Oximetry 100 100 100 12/05/20 11:04 12/05/20 12:24 12/05/20 13:48 Temperature 97.5 F L Pulse Rate 107 H 124 H Respiratory Rate 10 L 11 L Blood Pressure 96/58 L 96/57 L Pulse Oximetry 100 100 100 12/05/20 13:52 Temperature 98 F Pulse Rate 104 H Respiratory Rate 13 Blood Pressure 102/62 Pulse Oximetry 100 Oxygen Delivery Method Room Air Oxygen Flow Rate 0 Narrative Exam Narrative: GEN: thin and chronically ill appearing, tearful HEENT: dry mucous membranes, PERRL NECK: no JVD, trachea midline PULM: clear bilaterally, no wheezes, rhonchi, rales ABD: soft, nontender, nondistended, no organomegaly EXT: warm and well perfused with no edema SKIN: no rashes noted PSYCH: tearful, labile NEURO: awake and alert, moving all extremities with no focal deficits Objective Labs Result Diagrams: 12/05/20 08:50 12/05/20 13:44 Labs: Laboratory Results - last 24 hr 12/05/20 12/05/20 12/05/20 08:50 08:50 08:50 WBC 9.2 RBC 4.38 Hgb 14.3 Hct 43.4 MCV 99.1 MCH 32.6 MCHC 32.9 RDW 12.8 Plt Count 389 Neut % (Auto) 64.5 Lymph % (Auto) 27.3 [place] % (Auto) 6.5 Eos % (Auto) 0.5 L Baso % (Auto) 1.2 Neut # (Auto) 6000 Lymph # (Auto) 2500 [place] # (Auto) 600 Eos # (Auto) 0 Baso # (Auto) 100 ABG pH ABG pCO2 ABG pO2 ABG HCO3 ABG Total CO2 ABG O2 Saturation ABG Base Excess VBG pH VBG pCO2 VBG pO2 VBG HCO3 VBG Total CO2 VBG O2 Saturation VBG Base Excess FiO2 Sodium 130 L Potassium 5.1 Chloride 95 L Carbon Dioxide 7 L* BUN 20 H Creatinine 0.64 Estimated GFR > 60.0 BUN/Creatinine Ratio 31.3 H Glucose 699 H* Lactate 1.5 Calcium 9.4 Phosphorus Magnesium 2.1 Total Bilirubin 0.5 AST 26 ALT 20 Alkaline Phosphatase 227 H Total Protein 7.3 Albumin 4.4 Globulin 2.9 Albumin/Globulin Ratio 1.5 Lipase 180 Serum , Qual Urine Color Urine Appearance Urine pH Ur Specific [place] Urine Protein Urine Glucose (UA) Urine Ketones Urine Occult Blood Urine Nitrate Urine Bilirubin Urine Urobilinogen Ur Leukocyte Esterase Urine RBC Urine WBC Urine Bacteria Ur Culture Indicated? Nasal Screen MRSA (PCR) Ethyl Alcohol < 10 Ketones 15.90 H SARS-CoV-2 (PCR) 12/05/20 12/05/20 12/05/20 08:50 08:50 08:50 WBC RBC Hgb Hct MCV MCH MCHC RDW Plt Count Neut % (Auto) Lymph % (Auto) [place] % (Auto) Eos % (Auto) Baso % (Auto) Neut # (Auto) Lymph # (Auto) [place] # (Auto) Eos # (Auto) Baso # (Auto) ABG pH ABG pCO2 ABG pO2 ABG HCO3 ABG Total CO2 ABG O2 Saturation ABG Base Excess VBG pH VBG pCO2 VBG pO2 VBG HCO3 VBG Total CO2 VBG O2 Saturation VBG Base Excess FiO2 Sodium Potassium Chloride Carbon Dioxide BUN Creatinine Estimated GFR BUN/Creatinine Ratio Glucose Lactate Calcium Phosphorus 4.4 Magnesium Total Bilirubin AST ALT Alkaline Phosphatase Total Protein Albumin Globulin Albumin/Globulin Ratio Lipase Serum , Qual Negative Urine Color Urine Appearance Urine pH Ur Specific [place] Urine Protein Urine Glucose (UA) Urine Ketones Urine Occult Blood Urine Nitrate Urine Bilirubin Urine Urobilinogen Ur Leukocyte Esterase Urine RBC Urine WBC Urine Bacteria Ur Culture Indicated? Nasal Screen MRSA (PCR) Ethyl Alcohol Ketones SARS-CoV-2 (PCR) Negative 12/05/20 12/05/20 12/05/20 09:17 12:58 13:00 WBC RBC Hgb Hct MCV MCH MCHC RDW Plt Count Neut % (Auto) Lymph % (Auto) [place] % (Auto) Eos % (Auto) Baso % (Auto) Neut # (Auto) Lymph # (Auto) [place] # (Auto) Eos # (Auto) Baso # (Auto) ABG pH 7.20 L* ABG pCO2 15.4 L* ABG pO2 141 H ABG HCO3 6 L ABG Total CO2 6 L ABG O2 Saturation 99 ABG Base Excess -22.0 L VBG pH VBG pCO2 VBG pO2 VBG HCO3 VBG Total CO2 VBG O2 Saturation VBG Base Excess FiO2 0.21 Sodium Potassium Chloride Carbon Dioxide BUN Creatinine Estimated GFR BUN/Creatinine Ratio Glucose Lactate Calcium Phosphorus Magnesium Total Bilirubin AST ALT Alkaline Phosphatase Total Protein Albumin Globulin Albumin/Globulin Ratio Lipase Serum , Qual Urine Color Yellow Urine Appearance Clear Urine pH 5.0 Ur Specific [place] 1.010 Urine Protein Trace H Urine Glucose (UA) 2+ H Urine Ketones 3+ H Urine Occult Blood Negative Urine Nitrate Negative Urine Bilirubin Negative Urine Urobilinogen 0.2 Ur Leukocyte Esterase Negative Urine RBC None seen Urine WBC 5-10/hpf H Urine Bacteria None seen Ur Culture Indicated? Specimen cultured Nasal Screen MRSA (PCR) Negative for mrsa Ethyl Alcohol Ketones SARS-CoV-2 (PCR) 12/05/20 12/05/20 13:44 13:45 WBC RBC Hgb Hct MCV MCH MCHC RDW Plt Count Neut % (Auto) Lymph % (Auto) [place] % (Auto) Eos % (Auto) Baso % (Auto) Neut # (Auto) Lymph # (Auto) [place] # (Auto) Eos # (Auto) Baso # (Auto) ABG pH ABG pCO2 ABG pO2 ABG HCO3 ABG Total CO2 ABG O2 Saturation ABG Base Excess VBG pH 7.17 L* VBG pCO2 30.0 L VBG pO2 23 L VBG HCO3 11 L VBG Total CO2 12 L VBG O2 Saturation 29 L VBG Base Excess -18.0 L FiO2 Sodium 136 L Potassium 4.2 Chloride 105 Carbon Dioxide 11 L BUN 20 H Creatinine 0.56 Estimated GFR > 60.0 BUN/Creatinine Ratio 35.7 H Glucose 422 H D Lactate Calcium 8.6 Phosphorus Magnesium Total Bilirubin AST ALT Alkaline Phosphatase Total Protein Albumin Globulin Albumin/Globulin Ratio Lipase Serum , Qual Urine Color Urine Appearance Urine pH Ur Specific [place] Urine Protein Urine Glucose (UA) Urine Ketones Urine Occult Blood Urine Nitrate Urine Bilirubin Urine Urobilinogen Ur Leukocyte Esterase Urine RBC Urine WBC Urine Bacteria Ur Culture Indicated? Nasal Screen MRSA (PCR) Ethyl Alcohol Ketones SARS-CoV-2 (PCR) Assessment & Plan Assessment & Plan narrative: Ms. Jimenes is a 30W with PMH of type 1 diabetes and frequent admissions for DKA presenting with DKA. 1. 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 Gastroparesis -ordered for zofran -secondary to poorly controlled diabetes -ordered for tramadol, tylenol, and toradol, will minimize narcotics CODE: Full Proxy: Mother, Argelia Arce DVT ppx: SCDs DIET: NPO I have utilized all available immediate resources to obtain, update, or review the patient's current medications. I have spent 35 minutes providing critical care management for this patient.
[2020-12-05] MEDS: DEXTROSE 5%-0.45% NS 1,000 ML 63 ML IV (16:15)
[2020-12-05] MEDS: ACETAMINOPHEN 325 MG TABLET 650 MG PO (17:04)
[2020-12-05 17:40] LABS: HCO3 VBG 16 mmol/L (23-28); PCO2 VBG 37.8 mmHg (45-50); PO2 VBG 22 mmHg (35-45); Total CO2 VBG 17 mmol/L (24-29); pH VBG 7.23 (7.33-7.43)
[2020-12-05 17:41] LABS: Oxygen Saturation VBG 29 % (70-75)
[2020-12-05 18:34] LABS: BUN Creatinine Ratio 37.3 (6-22); Blood Urea Nitrogen 19 mg/dL (7-17); Calcium 8.2 mg/dL (8.4-10.2); Carbon Dioxide 16 mmol/L (22-32); Chloride 109 mmol/L (98-107); Estimated Glomerular Filt Rate > 60.0 mL/min (>60); Glucose 201 mg/dL (70-100); HEMOLYSIS < 15 (0-50); Sodium 137 mmol/L (137-145)
[2020-12-05 21:12] LABS: BUN Creatinine Ratio 44.2 (6-22); Blood Urea Nitrogen 19 mg/dL (7-17); Calcium 8.3 mg/dL (8.4-10.2); Carbon Dioxide 20 mmol/L (22-32); Chloride 110 mmol/L (98-107); Estimated Glomerular Filt Rate > 60.0 mL/min (>60); Glucose 137 mg/dL (70-100); HEMOLYSIS < 15 (0-50); Sodium 136 mmol/L (137-145)
[2020-12-05 22:10] LABS: Albumin 3.2 g/dL (3.5-5.0)
[2020-12-06] VITALS (75 sets, daily range): BP systolic 81–121; BP diastolic 50–70; PULSE 82–94; RESP 2–20; TEMP 36.7; O2SAT 90–99
[2020-12-06 01:16] LABS: BUN Creatinine Ratio 43.9 (6-22); Blood Urea Nitrogen 18 mg/dL (7-17); Calcium 8.2 mg/dL (8.4-10.2); Carbon Dioxide 22 mmol/L (22-32); Chloride 110 mmol/L (98-107); Estimated Glomerular Filt Rate > 60.0 mL/min (>60); Glucose 127 mg/dL (70-100); HEMOLYSIS < 15 (0-50); Potassium 4.7 mmol/L (3.4-5.1); Sodium 135 mmol/L (137-145)
[2020-12-06] MEDS: KETOROLAC 30 MG/ML VIAL IV ×2 (02:06→08:59)
[2020-12-06] MEDS: INSULIN DEGLUDEC 200 UNIT/ML SUBCUT (02:07)
[2020-12-06] MEDS: INSULIN SUBCUT (02:07)
[2020-12-06 05:08] LABS: Blood Urea Nitrogen 18 mg/dL (7-17); Calcium 8.3 mg/dL (8.4-10.2); Carbon Dioxide 21 mmol/L (22-32); Chloride 108 mmol/L (98-107); Estimated Glomerular Filt Rate > 60.0 mL/min (>60); Glucose 168 mg/dL (70-100); HEMOLYSIS < 15 (0-50); Potassium 4.5 mmol/L (3.4-5.1); Sodium 135 mmol/L (137-145)
[2020-12-06 05:14] LABS: Hemoglobin A1C% w Est Avg Glu > 14.0 % (4.0-6.0)
--- NOTE | 2020-12-06 06:02 | PC.NURSE ---
7pm-7am shift note-Patient has been drowsy and slept throughout the night. Insulin gtt stopped at 0300, 1 hour after receiving her Tresiba basal insulin. Tolerated PO intake without N/V. IV Toradol and PO Tramadol given for pain.
[2020-12-06 07:02] LABS: pH VBG 7.26 (7.33-7.43)
[2020-12-06 07:03] LABS: HCO3 VBG 21 mmol/L (23-28); Oxygen Saturation VBG 92 % (70-75); PCO2 VBG 46.1 mmHg (45-50); PO2 VBG 74 mmHg (35-45); Total CO2 VBG 22 mmol/L (24-29)
[2020-12-06 08:21] LABS: HCO3 VBG 21 mmol/L (23-28); Oxygen Saturation VBG 92 % (70-75); PCO2 VBG 44.8 mmHg (45-50); PO2 VBG 74 mmHg (35-45); Total CO2 VBG 22 mmol/L (24-29); pH VBG 7.28 (7.33-7.43)
[2020-12-06] MEDS: TRAMADOL 50 MG TABLET PO (08:59)
[2020-12-06] MEDS: INSULIN LISPRO 100 UNIT/ML 3ML VIAL SUBCUT (09:00)
--- NOTE | 2020-12-06 11:31 | CM.DANOTE ---
Discharge Planning/Care Management DCP: assessment: note: Case received and discussed in Team Rounds. Pt is a 30 year old female who admitted yesterday to care of hospitalist team with issues related to her Type I diabetes. Dr. Boyd stated in Rounds that he has d/c her to home. A check in after Rounds showed that pt did leave about 0930 in care of her mother Argelia. 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 CM Discharge Assessment Start: 12/06/20 11:28 Freq: Status: Discharge Protocol: Document 12/06/20 11:29 ITV (Rec: 12/06/20 11:30 ITV [id number]) Discharge Planning Assessment Advance Directives? No Advance Directives on File No History Provided By Medical Record Household Members family Is patient alert and oriented? Yes Discharge Plan Home Transportation Arrangement Mother Argelia will provide transportation at time of D/C
--- NOTE | 2020-12-06 17:36 | PM.DS.1 ---
History of Present Illness History of Present Illness Chief complaint: Type 1 diabetic, having issues Narrative: Ms. Jimenes is a 29W with PMH of poorly controlled type 1 diabetes with frequent admissions for DKA, migraines who presents to the ED complaining of feeling terrible. She said she began feeling nauseous overnight, and she now hurts all over. She checked her blood sugar at home and it was elevated. She says she has not missed any of her insulin. She denied having any fevers, cough, shortness of breath, diarrhea, dysuria. She became tearful as soon as I entered the room. She states that she is waiting to hear back from [facility] endocrinology about an appointment In the ED workup was done, she was afebrile with T 97.5, HR 116, blood pressure normal and normal o2 saturation at 97% on room air. Labs notable for unremakable CBC. Sodium 130, potassium 5.1, chloride 95, co2 7, creatinine 0.64. Glucose 699. Lactate 1.5. Ketones 15.9. Phos 4.4. ABG with pH 7.2, pcO2 15, paO2 141, hco3 6. She was ordered for IV insulin, IV fluids, pain medications and admitted for DKA. Discharge Providers Provider Date of admission: 12/05/20 11:18 Discharge Date: 12/06/20 Primary care physician: Maria Ines Limon DO Consults: 12/05/20 12:48 Consult to Dietitian, Adult Routine Comment: Reason For Exam: diabetic education Discharge provider: Ky Sauer MD Summary Hospital Course Discharge Diagnosis: 1. DKA, poorly controlled type 1 diabetes on insulin Hospital Course: Ms. Jimenes was admitted with DKA. She stated she has not missed any of her diabetic medications. She was kept NPO, placed on insulin gtt. Her anion gap closed. Her insulin improved to the 100s. She was switched to her home regimen for her diabetes. Her blood sugar remained below 200. She was feeling well to leave and tolerated a diet. Her a1c remains >14 which is concerning of nonadherence to her medications. She was encouraged to follow up immediately with endocrinology to help with further blood sugar control. Exam Vital Signs (past 8 hours): Oxygen Delivery Method Room Air Oxygen Flow Rate 0 Narrative Exam Narrative: GEN: no acute distress PULM: clear bilaterally, no wheezes, rhonchi, rales ABD: soft, nontender, nondistended, no organomegaly EXT: warm and well perfused with no edema SKIN: no rashes noted PSYCH: pleasant NEURO: awake and alert, moving all extremities with no focal deficits Objective Labs Result Diagrams: 12/05/20 08:50 12/06/20 04:45 Labs: Laboratory Results - last 24 hr 12/05/20 12/05/20 12/05/20 13:44 17:25 17:26 VBG pH Cancelled 7.23 L VBG pCO2 Cancelled 37.8 L VBG pO2 Cancelled 22 L VBG HCO3 Cancelled 16 L VBG Total CO2 Cancelled 17 L VBG O2 Saturation Cancelled 29 L VBG Base Excess Cancelled -12.0 L Sodium 137 Potassium 4.0 Chloride 109 H Carbon Dioxide 16 L BUN 19 H Creatinine 0.51 L Estimated GFR > 60.0 BUN/Creatinine Ratio 37.3 H Glucose 201 H D Hemoglobin A1c Calcium 8.2 L Albumin 12/05/20 12/05/20 12/06/20 20:54 20:54 01:00 VBG pH VBG pCO2 VBG pO2 VBG HCO3 VBG Total CO2 VBG O2 Saturation VBG Base Excess Sodium 136 L 135 L Potassium 4.0 4.7 Chloride 110 H 110 H Carbon Dioxide 20 L 22 BUN 19 H 18 H Creatinine 0.43 L 0.41 L Estimated GFR > 60.0 > 60.0 BUN/Creatinine Ratio 44.2 H 43.9 H Glucose 137 H 127 H Hemoglobin A1c Calcium 8.3 L 8.2 L Albumin 3.2 L 12/06/20 12/06/20 12/06/20 01:00 01:10 04:45 VBG pH Cancelled 7.26 L VBG pCO2 Cancelled 46.1 VBG pO2 Cancelled 74 H VBG HCO3 Cancelled 21 L VBG Total CO2 Cancelled 22 L VBG O2 Saturation Cancelled 92 H VBG Base Excess Cancelled -6.0 L Sodium 135 L Potassium 4.5 Chloride 108 H Carbon Dioxide 21 L BUN 18 H Creatinine 0.53 Estimated GFR > 60.0 BUN/Creatinine Ratio 34.0 H Glucose 168 H Hemoglobin A1c Calcium 8.3 L Albumin 12/06/20 12/06/20 12/06/20 04:45 04:45 04:57 VBG pH Cancelled 7.28 L VBG pCO2 Cancelled 44.8 L VBG pO2 Cancelled 74 H VBG HCO3 Cancelled 21 L VBG Total CO2 Cancelled 22 L VBG O2 Saturation Cancelled 92 H VBG Base Excess Cancelled -6.0 L Sodium Potassium Chloride Carbon Dioxide BUN Creatinine Estimated GFR BUN/Creatinine Ratio Glucose Hemoglobin A1c > 14.0 H Calcium Albumin PFSH Medical History DKA (diabetic ketoacidoses) History of pyelonephritis Irregular menstrual cycle Migraine headache Nephrolithiasis Type 1 diabetes mellitus Surgical History History of ureter stent Hx of cataract surgery Hx of local excision of skin lesion Status post laser lithotripsy of ureteral calculus [place] teeth extracted Family History Father In good health Mother Cardiac disease Social History details: Engaged household members: family Smoking Status: Never smoker alcohol intake: never Discharge Plan Discharge Plan Patient Disposition: Home Provider Discharge Comment: Ms. Jimenes came in to the hospital with DKA which is a dangerous life threatening condition of out of control blood sugar. She improved with insulin and felt good enough to go home. Her blood sugars were well controlled when she was back on her home medications. Please make sure to take your medications every day. Please call as soon as you get home to [facility] endocrinology to setup follow up to make sure your diabetes is managed as best as possible. Discharge orders & Medications Prescriptions: Continued glucose 4 gram tablet,chewable 4 gram PO Q15M PRN (Reason: hypoglycemia) Qty: 30 RF: 0 Glucagon Emergency Kit (human) 1 mg recon soln 1 mg subcut DIRECTED RF: 0 insulin degludec 200 unit/mL (3 mL) Insulin Pen 53 unit SUBCUT 1100 RF: 0 insulin aspart U-100 [Novolog Flexpen U-100 Insulin] 100 unit/mL (3 mL) insulin pen 10 unit SUBCUT AC RF: 0 diphenhydramine HCl 50 mg Capsule 50 mg PO BEDTIME PRN (Reason: Sleep) RF: 0 Follow up/Referrals: Maria Ines Limon DO [Primary Care Provider] - Diet/Activity/Treatments Diet: Carb-consistent/Diabetic Visit Report/Discharge Packet Instructions: DI for Diabetic Ketoacidosis Discharge Data Primary Care Provider: Maria Ines Limon MIPS - DC The patient has current or prior documentation of left ventricular ejection fraction (LVEF) less than 40%, or moderate or severely depressed left ventricular systolic function.: No
== END 2020-12-06 09:31 | disposition home or self-care (01) | DRG 639 ==
LOC: ED 11:14 → AC 11:19 → ICU 12:27
PROVIDERS: Nurse Practitioner Family; Admitting Provider Internal Medicine; Emergency Provider Emergency Medicine; PCP Student in an Organized Health Care Education/Training Program; Referring Provider Emergency Medicine; Visit Provider Internal Medicine
DX: E10.10 Type 1 diabetes mellitus with ketoacidosis without coma (principal); E10.43 Type 1 diabetes mellitus with diabetic autonomic (poly)neuropathy; K31.84 Gastroparesis; Z79.4 Long term (current) use of insulin; Z20.822 Contact with and (suspected) exposure to COVID-19
CPT/HCPCS: 36415; 36600; 80048; 80053; 80320; 81001; 82009; 82040; 82805; 82962; 83036; 83605; 83690; 83735; 84100; 84703; 85025; 87077; 87086; 87635; 87797; 93005; 93010; 96361; 96365; 96366; 96375; 99284; C9803; J1170; J1815; J1885

== ENCOUNTER 2020-12-19 15:04 | Inpatient (IN) | payer MEDICAID, SELFPAY ==
[2020-12-05 12:28] VITALS: BMI 17.4
[2020-12-19 15:31] VITALS: BP 111/63; PULSE 107; RESP 18; TEMP 36.9; O2SAT 100; BMI 16.2
--- NOTE | 2020-12-19 15:47 | ED.GENADULT ---
HPI - General Adult General Chief complaint: Diabetic Problem Stated complaint: BODY HURTS DEHYDRATION Time Seen by Provider: 12/19/20 15:27 Source: patient and family Mode of arrival: Family Vehicle Limitations: no limitations History of Present Illness HPI narrative: Patient is a 30-year-old female with insulin-dependent diabetes poorly controlled frequent hospitalizations and emergency department visits. She was recently discharged 12/06/2020 for DKA. To await endocrinology appointment. She states today she started having some very mild dysuria. No fever or chills she is having some body aches. Glucose was read as high. She has no abdominal pain no nausea or vomiting but overall does not feel well and feels like previous DKA episodes. She denies any vaginal discharge or pruritus. Related Data Home Medications Medication Instructions Recorded Confirmed glucagon (human recombinant) 1 mg 1 mg SUBCUT DIRECTED 02/16/19 12/05/20 solution for injection (Glucagon Emergency Kit) insulin degludec 200 unit/mL (3 53 unit SUBCUT 1100 11/21/19 12/05/20 mL) subcutaneous pen insulin aspart U-100 100 unit/mL 10 unit SUBCUT AC 05/20/20 12/05/20 (3 mL) subcutaneous pen (Novolog Flexpen U-100 Insulin aspart) diphenhydramine HCl 50 mg capsule 50 mg PO BEDTIME PRN 09/29/20 12/05/20 Previous Rx's Medication Instructions Recorded glucose 4 gram chewable tablet 4 gram PO Q15M PRN #30 tab 12/12/18 Allergies Allergy/AdvReac Type Severity Reaction Status Date / Time abdalla [ABDALLA] Allergy Intermediate Hives, Verified 12/19/20 15:31 pruritus iodine [IODINE] Allergy Intermediate rash, itchy Verified 12/19/20 15:31 morphine Allergy Intermediate Difficulty Verified 12/19/20 15:31 Breathing shellfish derived Allergy Intermediate rash Verified 12/19/20 15:31 [SHELLFISH DERIVED] adhesive [ADHESIVE] Allergy Unknown tape Verified 12/19/20 15:31 latex [LATEX] Allergy Unknown Hives Verified 12/19/20 15:31 Review of Systems Review of Systems ROS Unobtainable: All systems reviewed & are unremarkable except as noted in HPI and below Constitutional Constitutional: Denies anorexia, Denies poor appetite and Reports weight loss ENT Ears, Nose, Mouth, and Throat: Denies vertigo, Denies dizziness and Denies sore throat Cardiovascular Cardiovascular: Denies chest pain Respiratory Respiratory: Denies chest congestion and Denies cough Gastrointestinal Gastrointestinal: Denies abdominal pain and Reports nausea Genitourinary Genitourinary: Reports as per HPI Musculoskeletal Musculoskeletal: Reports myalgias Integumentary/Breasts Skin/Breast: Denies rash Neurologic Neurologic: Denies vertigo and Denies dizziness Patient History Medical History DKA (diabetic ketoacidoses) History of pyelonephritis Irregular menstrual cycle Migraine headache Nephrolithiasis Type 1 diabetes mellitus Surgical History History of ureter stent Hx of cataract surgery Hx of local excision of skin lesion Status post laser lithotripsy of ureteral calculus [place] teeth extracted Family History Father In good health Mother Cardiac disease Social History details: Engaged household members: family Smoking Status: Never smoker alcohol intake: never Smoking Status: Never smoker alcohol intake frequency: holidays/special occasions only Substance Use Type: does not use Exam Initial Vital Signs Initial Vital Signs: Vital Signs Temperature 98.5 F 12/19/20 15:31 Pulse Rate 107 H 12/19/20 15:31 Respiratory Rate 18 12/19/20 15:31 Blood Pressure 111/63 12/19/20 15:31 Pulse Oximetry 100 12/19/20 15:31 GENERAL: Thin young 30-year-old female HEENT: Head atraumatic,EOMI, pupils reactive, face symmetric, moist mucous membranes CARDIOVASCULAR: Regular rate and rhythm without murmurs, rubs or gallops. RESPIRATORY: Breath sounds equal bilaterally, no wheezes rales or rhonchi. ABDOMEN: Soft, nontender. Normoactive bowel sounds all 4 quadrants. No guarding or rebound. : No CVA tenderness EXTREMITIES: Normal range of motion, no clubbing or edema. Neurovascularly intact NEUROLOGICAL: Alert and oriented x4. SKIN: Warm, dry, no laceration, no petechiae, no rashes or lesions. Course Orders Ordered: ED Orders 12/19/20 15:23 EKG-12 Lead Stat 12/19/20 15:25 Urine Microscopic Stat 12/19/20 15:45 Complete Blood Count AUTO DIFF Stat Comprehensive Metabolic Panel Stat Ketones (Beta-Hydroxybutyrate) Stat Lactate (Lactic Acid) Stat Lipase Stat Procalcitonin Stat Venous Blood Gas Stat 12/19/20 17:37 Blood Culture Stat 12/19/20 17:46 COVID19 - ADMIT (JOIST SETTER swab/PCR) Stat Sodium Chloride (Normal Saline 0.9%) 1,000 mls @ 150 mls/hr IV CONT BLAISE Last Infusion: 12/19/20 17:40 Dose: 150 mls/hr Documented by: Admin: 12/19/20 17:40 Dose: 150 mls/hr Documented by: ROGER INSULIN DRIP PREMIX (Myxredlin Drip Premix) 100 unit in 100 mls @ 6 mls/hr IV TITRATE BLAISE; Protocol Last Titration: 12/19/20 17:36 Dose: 6 mls/hr, 6 mls/hr Documented by: LISSET Cosigned by: AURELIO Admin: 12/19/20 17:10 Dose: 6 mls/hr, 6 mls/hr Documented by: ROGER Cosigned by: AURELIO Discontinued Medications Hydromorphone HCl (Hydromorphone 1 Mg Inj) 1 mg IV NOW ONE Stop: 12/19/20 15:53 Last Admin: 12/19/20 16:15 Dose: 1 mg Documented by: ROGER Sodium Chloride (Normal Saline 0.9%) 1,000 mls @ 1,000 mls/hr IV BOLUS ONE Stop: 12/19/20 16:22 Last Infusion: 12/19/20 17:37 Dose: 0 mls/hr Documented by: Admin: 12/19/20 16:16 Dose: 1,000 mls/hr Documented by: ROGER Insulin Human Regular 100 unit (/ Sodium Chloride) 100 mls @ 6 mls/hr IV TITRATE BLAISE; Protocol Last Admin: 12/19/20 18:37 Dose: Not Given Documented by: DYLLAN Ondansetron HCl (Ondansetron 4 Mg/2 Ml Inj) 4 mg IV NOW ONE Stop: 12/19/20 15:24 Last Admin: 12/19/20 16:16 Dose: 4 mg Documented by: MACAMPBELL Vital Signs Vital signs: Vital Signs - 8 hr 12/19/20 15:31 Temperature 98.5 F Pulse Rate 107 H Respiratory Rate 18 Blood Pressure 111/63 Pulse Oximetry 100 Medical Decision Making Lab Data Result diagrams: 12/19/20 15:45 12/19/20 15:45 Labs: Lab Results 12/19/20 12/19/20 12/19/20 Range/Units 15:25 15:45 15:45 WBC 7.1 (4.5-11.0) X10^3/uL RBC 5.00 (4.0-5.2) X10^6/uL Hgb 16.1 H (12.0-16.0) g/dL Hct 49.3 H (36-46) % MCV 98.6 (80-100) fL MCH 32.2 (26-34) PG MCHC 32.7 (30-36) % RDW 12.8 (11.6-14.8) % Plt Count 377 (150-400) X10^3/uL Neut % (Auto) 66.4 (50-75) % Lymph % (Auto) 27.5 (25-40) % [place] % (Auto) 4.5 (3-14) % Eos % (Auto) 0.3 L (2-4) % Baso % (Auto) 1.3 (0-2) % Neut # (Auto) 4700 (7253-2712) /uL Lymph # (Auto) 1900 (2640-9412) /uL [place] # (Auto) 300 (0-900) /uL Eos # (Auto) 0 (0-450) /uL Baso # (Auto) 100 (0-100) /uL VBG pH (7.33-7.43) VBG pCO2 (45-50) mmHg VBG pO2 (35-45) mmHg VBG HCO3 (23-28) mmol/L VBG Total CO2 (24-29) mmol/L VBG O2 Saturation (70-75) % VBG Base Excess (0-4) mmol/L Sodium 133 L (137-145) mmol/L Potassium 5.0 (3.4-5.1) mmol/L Chloride 96 L (98-107) mmol/L Carbon Dioxide 8 L* (22-32) mmol/L BUN 20 H (7-17) mg/dL Creatinine 0.62 (0.52-1.04) mg/dL Estimated GFR > 60.0 (>60) mL/min BUN/Creatinine Ratio 32.3 H (6-22) Glucose 668 H* (70-100) mg/dL Lactate (0.7-2.1) mmol/L Calcium 10.1 (8.4-10.2) mg/dL Total Bilirubin 0.6 (0.2-1.3) mg/dL AST 22 (14-36) IU/L ALT 24 (<35) IU/L Alkaline Phosphatase 199 H (38-126) U/L Total Protein 8.0 (6.3-8.2) g/dL Albumin 4.8 (3.5-5.0) g/dL Globulin 3.2 (1.7-4.1) g/dL Albumin/Globulin Ratio 1.5 (1.0-2.8) Lipase (23-300) U/L Procalcitonin 0.09 (<0.5) ng/mL Urine RBC None seen (0-5/HPF) Urine WBC 5-10/hpf H (0-5/HPF) Ur Squamous Epith Cells 5-10 /hpf H (0-5/HPF) Ur Transition Epith Cell 1-5/hpf (0-5/HPF) Urine Bacteria None seen (None) Ur Culture Indicated? Cult not indicated Ketones 13.88 H (<0.27) mmol/L 12/19/20 12/19/20 12/19/20 Range/Units 15:45 15:45 15:45 WBC (4.5-11.0) X10^3/uL RBC (4.0-5.2) X10^6/uL Hgb (12.0-16.0) g/dL Hct (36-46) % MCV (80-100) fL MCH (26-34) PG MCHC (30-36) % RDW (11.6-14.8) % Plt Count (150-400) X10^3/uL Neut % (Auto) (50-75) % Lymph % (Auto) (25-40) % [place] % (Auto) (3-14) % Eos % (Auto) (2-4) % Baso % (Auto) (0-2) % Neut # (Auto) (7510-4402) /uL Lymph # (Auto) (5190-4007) /uL [place] # (Auto) (0-900) /uL Eos # (Auto) (0-450) /uL Baso # (Auto) (0-100) /uL VBG pH 7.21 L (7.33-7.43) VBG pCO2 28.6 L (45-50) mmHg VBG pO2 24 L (35-45) mmHg VBG HCO3 11 L (23-28) mmol/L VBG Total CO2 12 L (24-29) mmol/L VBG O2 Saturation 33 L (70-75) % VBG Base Excess -16.0 L (0-4) mmol/L Sodium (137-145) mmol/L Potassium (3.4-5.1) mmol/L Chloride (98-107) mmol/L Carbon Dioxide (22-32) mmol/L BUN (7-17) mg/dL Creatinine (0.52-1.04) mg/dL Estimated GFR (>60) mL/min BUN/Creatinine Ratio (6-22) Glucose (70-100) mg/dL Lactate 1.5 (0.7-2.1) mmol/L Calcium (8.4-10.2) mg/dL Total Bilirubin (0.2-1.3) mg/dL AST (14-36) IU/L ALT (<35) IU/L Alkaline Phosphatase (38-126) U/L Total Protein (6.3-8.2) g/dL Albumin (3.5-5.0) g/dL Globulin (1.7-4.1) g/dL Albumin/Globulin Ratio (1.0-2.8) Lipase 141 (23-300) U/L Procalcitonin (<0.5) ng/mL Urine RBC (0-5/HPF) Urine WBC (0-5/HPF) Ur Squamous Epith Cells (0-5/HPF) Ur Transition Epith Cell (0-5/HPF) Urine Bacteria (None) Ur Culture Indicated? Ketones (<0.27) mmol/L Point of Care Testing Test Results Negative Glucose POC 500 Urine Dip Bedside Urine Glucose 1000 mg/dl Bedside Urine Bilirubin - Negative Bedside Urine Ketone +++ 80 Urine Specific [place] 1.020 Bedside Urine Occult Blood - Negative Bedside Urine pH 6.0 Bedside Urine Protein - Negative Bedside Urine Urobilinogen - Negative Bedside Urine Nitrite - Negative Bedside Urine Leukocytes - Negative Esterase Point of care testing: Point of Care Testing Test Results Negative Glucose POC 500 Urine Dip Bedside Urine Glucose 1000 mg/dl Bedside Urine Bilirubin - Negative Bedside Urine Ketone +++ 80 Urine Specific [place] 1.020 Bedside Urine Occult Blood - Negative Bedside Urine pH 6.0 Bedside Urine Protein - Negative Bedside Urine Urobilinogen - Negative Bedside Urine Nitrite - Negative Bedside Urine Leukocytes - Negative Esterase ECG Data Interpretation: Sinus rhythm rate [address] changes no T-wave inversions similar to previous EKGs MDM Narrative Medical decision making narrative: The patient has an anion gap of 32 a pH is 7.2 she is in DKA. No sign of infection at this time. She is frequently noncompliant. I discussed with hospitalist all concerned for a pain medication seeking. She was given 1 dose Dilaudid in the emergency department. She will be admitted to the ICU but will not be given any pain medications. Dr. arita accepts to ICU Discharge Plan Departure Patient Disposition: Admitted As Inpatient Clinical Impression: Diabetic keto-acidosis Admit Date/Time: 12/19/20 17:10 Admit Provider: Gale Arita
[2020-12-19 16:01] LABS: Add Manual Diff / Slide Review NO; Basophils Absolute Auto 100 /uL (0-100); Basophils Percent Auto 1.3 % (0-2); Eosinophils Absolute Auto 0 /uL (0-450); Eosinophils Percent Auto 0.3 % (2-4); Hematocrit 49.3 % (36-46); Hemoglobin 16.1 g/dL (12.0-16.0); Lymphocytes Absolute Auto 1900 /uL (1100-4500); Lymphocytes Percent Auto 27.5 % (25-40); Mean Corpuscular HGB Conc 32.7 % (30-36); Mean Corpuscular Hemoglobin 32.2 PG (26-34); Mean Corpuscular Volume 98.6 fL (80-100); Monocytes Absolute Auto 300 /uL (0-900); Monocytes Percent Auto 4.5 % (3-14); Neutrophils Absolute Auto 4700 /uL (1500-7000); Neutrophils Percent Auto 66.4 % (50-75); Platelet Count 377 X10^3/uL (150-400); Red Cell Distribution Width 12.8 % (11.6-14.8); White Blood Cell Count 7.1 X10^3/uL (4.5-11.0)
[2020-12-19 16:07] LABS: HEMOLYSIS < 15 (0-50)
[2020-12-19 16:12] LABS: Alanine Aminotransferase 24 IU/L (<35); Albumin 4.8 g/dL (3.5-5.0); Albumin Globulin Ratio 1.5 (1.0-2.8); Alkaline Phosphatase 199 U/L (38-126); Aspartate Aminotransferase 22 IU/L (14-36); BUN Creatinine Ratio 32.3 (6-22); Bilirubin Total 0.6 mg/dL (0.2-1.3); Blood Urea Nitrogen 20 mg/dL (7-17); Calcium 10.1 mg/dL (8.4-10.2); Chloride 96 mmol/L (98-107); Estimated Glomerular Filt Rate > 60.0 mL/min (>60); Globulin 3.2 g/dL (1.7-4.1); Sodium 133 mmol/L (137-145)
[2020-12-19 16:13] LABS: Lactate (Lactic Acid) 1.5 mmol/L (0.7-2.1); Lipase 141 U/L (23-300)
[2020-12-19] MEDS: HYDROMORPHONE 1 MG INJ IV (16:15)
[2020-12-19] MEDS: ONDANSETRON 4 MG/2 ML INJ IV (16:16)
[2020-12-19] MEDS: SODIUM CHLORIDE 0.9% 1,000 ML 1000 ML IV ×3 (16:16→21:16)
[2020-12-19 16:17] LABS: Bacteria Urine None Seen; RBC Urine None Seen (0-5/HPF); WBC Urine 5-10/HPF (0-5/HPF)
[2020-12-19 16:18] LABS: Culture Indicated Urine Cult Not Indicated; Squamous Epithelial Cell Urine 5-10 /HPF (0-5/HPF); Transitional Epi Cells Urine 1-5/HPF (0-5/HPF)
[2020-12-19 16:29] LABS: Procalcitonin 0.09 ng/mL (<0.5)
[2020-12-19 16:54] LABS: pH VBG 7.21 (7.33-7.43)
[2020-12-19 16:55] LABS: HCO3 VBG 11 mmol/L (23-28); Oxygen Saturation VBG 33 % (70-75); PCO2 VBG 28.6 mmHg (45-50); PO2 VBG 24 mmHg (35-45); Total CO2 VBG 12 mmol/L (24-29)
[2020-12-19 17:05] LABS: Carbon Dioxide 8 mmol/L (22-32)
[2020-12-19 17:06] LABS: Glucose 668 mg/dL (70-100)
[2020-12-19] MEDS: INSULIN DRIP PREMIX 100 UNIT/100 ML PLAST..BAG 6 UNIT IV (17:10)
[2020-12-19 17:12] VITALS: PULSE 118; RESP 13; O2SAT 99
[2020-12-19 17:15] VITALS: PULSE 112; RESP 12; O2SAT 100
[2020-12-19 17:27] LABS: Ketones (Beta-Hydroxybutyrate) 13.88 mmol/L (<0.27)
[2020-12-19 17:30] VITALS: BMI 16.1
[2020-12-19 17:31] VITALS: BP 103/67
[2020-12-19] MEDS: SODIUM CHLORIDE 0.9% 1,000 ML 150 ML IV (17:40)
[2020-12-19 17:45] VITALS: BP 126/78; PULSE 122; RESP 17; TEMP 36.6; O2SAT 96
[2020-12-19 17:47] LABS: COVID19 - ADMIT (NP swab/PCR) Negative (Negative)
[2020-12-19 19:07] LABS: Glucose 469 mg/dL (70-100)
--- NOTE | 2020-12-19 19:40 | P.HP_ITS ---
History of Present Illness History of Present Illness Date Patient Seen: 12/19/20 Time Patient Seen: 19:40 Chief complaint: BODY HURTS DEHYDRATION Narrative: Ms. Sarabjit Jimenes is a 29-year-old female patient with a history significant for poorly controlled type 1 diabetes, frequent admissions for DKA, migraines and irregular menstruation who presents to the ER complaining of DKA. She was recently discharged 12/06/2020 for DKA. The hospitalist service has consulted with her lead application architect in the past, and has been advised that her brittle DM issues are psych nature, not diabetic or endocrine driven. Though patient will verbalize on each admit that she is compliant with her insulins, on record A1C: 2019-current have all been >14%. She reports complaints of abdominal pain with nausea without vomiting or abdominal pain. She denies complaints of constipation or diarrhea. She reports having no menstrual periods for over a year. Patient verbalized that overall felt very poor with chills and body aches, without fever. She denies any vaginal discharge or pruritus. Patient denies any recent precipitating factor such as recent illness injury or trauma. Patient reports that she is compliant with her insulin, continued poor appetite and weight loss. Patient's weight on 05/12/2020 was 49.89 kg, 10/18/2020 43 kg, today 38.8 kg. Patient denies alcohol intake or recreational substances. Patient denies chest pain or shortness of breath. Patient is moderately ill appearing, with a more doran like face on this admit. Patient has had 3 ED only visits, and 6 hospital admissions to date 07/2020. Upon admit patient's vitals were stable with a temp of 97.8?, BP 126/78, HR tachycardic at 1:22 a.m., RR 17, O2 saturation 96% on room air. Tele ICU parti cipated in patient's admit. VBG pH 7.21, pCO2 28.6, PO2 24, HC03 11, T CO2 12, O2 saturation 33%, base excess -16, patient has a gap of 29. Patient's UA was predominantly negative only demonstrated WBC 5-10 and squamous cell epithelial cells 5-10. No culture ordered. Patient had a HGB of 16.1, HCT 49.3, sodium 133, chloride 96, BUN 20, HC03 8, blood glucose in ED 668, upon admit 469, A1c >14%, lipase and lactate WNL, procalcitonin 0.09 WNL, ketones 13.88. Patient was placed on a heparin drip in the ED and given a 1 L bolus of fluid. Patient admitted for DKA Patient History Medical History DKA (diabetic ketoacidoses) History of pyelonephritis Irregular menstrual cycle Migraine headache Nephrolithiasis Type 1 diabetes mellitus Surgical History History of ureter stent Hx of cataract surgery Hx of local excision of skin lesion Status post laser lithotripsy of ureteral calculus [place] teeth extracted Family & Social History Family History Father In good health Mother Cardiac disease Social History: household members family Prior Living Arrangements House Safety & Behavioral: Feels Safe in Current Yes Environment Been Physically Hurt or No Threatened By a Person Suicidal Ideation Description None Suicide Plan Description No Plan Tobacco & Substance use: Smoking Status Never smoker alcohol intake never alcohol intake frequency holiday/special occasion Substance Use Type does not use Meds Home Medications and Allergies Home Medications Medication Instructions Recorded Confirmed Type glucose 4 gram chewable tablet 4 gram PO Q15M PRN #30 tab 12/12/18 12/19/20 Rx glucagon (human recombinant) 1 mg 1 mg SUBCUT DIRECTED 02/16/19 12/19/20 His tory solution for injection (Glucagon Emergency Kit) insulin degludec 200 unit/mL (3 53 unit SUBCUT 1100 11/21/19 12/19/20 History mL) subcutaneous pen insulin aspart U-100 100 unit/mL 10 unit SUBCUT AC 05/20/20 12/19/20 History (3 mL) subcutaneous pen (Novolog Flexpen U-100 Insulin aspart) diphenhydramine HCl 50 mg capsule 50 mg PO BEDTIME PRN 09/29/20 12/19/20 History Allergies Allergy/AdvReac Type Severity Reaction Status Date / Time abdalla [ABDALLA] Allergy Intermediate Hives, Verified 12/19/20 15:31 pruritus iodine [IODINE] Allergy Intermediate rash, itchy Verified 12/19/20 15:31 morphine Allergy Intermediate Difficulty Verified 12/19/20 15:31 Breathing shellfish derived Allergy Intermediate rash Verified 12/19/20 15:31 [SHELLFISH DERIVED] adhesive [ADHESIVE] Allergy Unknown tape Verified 12/19/20 15:31 latex [LATEX] Allergy Unknown Hives Verified 12/19/20 15:31 Review of Systems Review of Systems Narrative: All 12 point systems reviewed with the patient and are negative except otherwise documented. Exam Vital Signs (past 8 hours): - 12/19/20 15:31 12/19/20 17:12 12/19/20 17:15 Temperature 98.5 F Pulse Rate 107 H 118 H 112 H Respiratory Rate 18 13 12 Blood Pressure 111/63 Pulse Oximetry 100 99 100 12/19/20 17:31 12/19/20 17:45 Temperature 97.8 F Pulse Rate 122 H Respiratory Rate 17 Blood Pressure 103/67 126/78 Pulse Oximetry 96 Oxygen Delivery Method Room Air Narrative Exam Narrative: Gen: Alert, oriented, thin and ill appearing 30 y.o. female, states is very uncomfortable HEENT: normocephalic, atraumatic, conjunctiva clear, keeps her eyes closed, oral mucosa pink and moist Neck: supple, full ROM, no JVD, trachea is midline Resp: Lungs CTA, non-labored breathing CV: RRR, no murmur or rubs Abd: soft, non-tender, normoactive BTs Skin: no lesions or rashes, dry and intact Neuro: Alert and oriented X 4 w/no focal deficits. Speech clear and coherent. Extremities: moves all 4 extremities, is ambulatory, negative Namita?s sign Psyche: labile Objective Labs Result Diagrams: 12/19/20 15:45 12/20/20 01:05 Labs: Laboratory Results - last 24 hr 12/19/20 12/19/20 12/19/20 15:25 15:45 15:45 WBC 7.1 RBC 5.00 Hgb 16.1 H Hct 49.3 H MCV 98.6 MCH 32.2 MCHC 32.7 RDW 12.8 Plt Count 377 Neut % (Auto) 66.4 Lymph % (Auto) 27.5 [place] % (Auto) 4.5 Eos % (Auto) 0.3 L Baso % (Auto) 1.3 Neut # (Auto) 4700 Lymph # (Auto) 1900 [place] # (Auto) 300 Eos # (Auto) 0 Baso # (Auto) 100 VBG pH VBG pCO2 VBG pO2 VBG HCO3 VBG Total CO2 VBG O2 Saturation VBG Base Excess Sodium 133 L Potassium 5.0 Chloride 96 L Carbon Dioxide 8 L* BUN 20 H Creatinine 0.62 Estimated GFR > 60.0 BUN/Creatinine Ratio 32.3 H Glucose 668 H* Lactate Calcium 10.1 Total Bilirubin 0.6 AST 22 ALT 24 Alkaline Phosphatase 199 H Total Protein 8.0 Albumin 4.8 Globulin 3.2 Albumin/Globulin Ratio 1.5 Lipase Procalcitonin 0.09 Urine RBC None seen Urine WBC 5-10/hpf H Ur Squamous Epith Cells 5-10 /hpf H Ur Transition Epith Cell 1-5/hpf Urine Bacteria None seen Ur Culture Indicated? Cult not indicated Ketones 13.88 H SARS-CoV-2 (PCR) 12/19/20 12/19/20 12/19/20 15:45 15:45 15:45 WBC RBC Hgb Hct MCV MCH MCHC RDW Plt Count Neut % (Auto) Lymph % (Auto) [place] % (Auto) Eos % (Auto) Baso % (Auto) Neut # (Auto) Lymph # (Auto) [place] # (Auto) Eos # (Auto) Baso # (Auto) VBG pH 7.21 L VBG pCO2 28.6 L VBG pO2 24 L VBG HCO3 11 L VBG Total CO2 12 L VBG O2 Saturation 33 L VBG Base Excess -16.0 L Sodium Potassium Chloride Carbon Dioxide BUN Creatinine Estimated GFR BUN/Creatinine Ratio Glucose Lactate 1.5 Calcium Total Bilirubin AST ALT Alkaline Phosphatase Total Protein Albumin Globulin Albumin/Globulin Ratio Lipase 141 Procalcitonin Urine RBC Urine WBC Ur Squamous Epith Cells Ur Transition Epith Cell Urine Bacteria Ur Culture Indicated? Ketones SARS-CoV-2 (PCR) 12/19/20 12/19/20 17:46 18:45 WBC RBC Hgb Hct MCV MCH MCHC RDW Plt Count Neut % (Auto) Lymph % (Auto) [place] % (Auto) Eos % (Auto) Baso % (Auto) Neut # (Auto) Lymph # (Auto) [place] # (Auto) Eos # (Auto) Baso # (Auto) VBG pH VBG pCO2 VBG pO2 VBG HCO3 VBG Total CO2 VBG O2 Saturation VBG Base Excess Sodium Potassium Chloride Carbon Dioxide BUN Creatinine Estimated GFR BUN/Creatinine Ratio Glucose 469 H D Lactate Calcium Total Bilirubin AST ALT Alkaline Phosphatase Total Protein Albumin Globulin Albumin/Globulin Ratio Lipase Procalcitonin Urine RBC Urine WBC Ur Squamous Epith Cells Ur Transition Epith Cell Urine Bacteria Ur Culture Indicated? Ketones SARS-CoV-2 (PCR) Negative Assessment & Plan Assessment & Plan narrative: Ms. Sarabjit Jimenes is a 29-year-old female patient with a history significant for poorly controlled type 1 diabetes, frequent admissions for DKA, migraines and irregular menstruation who presents to the ER complaining of DKA. She was recently discharged 12/06/2020 for DKA. The hospitalist service has consulted with her lead application architect in the past, and has been advised that her brittle DM issues are psych nature, not diabetic or endocrine driven. Though patient will verbalize on each admit that she is compliant with her insulins, on record A1C: 2019-current have all been >14%. Patient has had 3 ED only visits, and 6 hospital admissions to date 07/2020. Patient admitted for DKA 1. Acute diabetic ketoacidosis, with hyperglycemia, in uncontrolled diabetes mellitus type 1 insulin-dependent, unstable, acute on chronic, present on admission -last Hemoglobin A1c >14% was sustained 03/04/2020 has been elevated at greater than 14 % since June of 2018 indicative of poor glycemic control. The patient is followed at [facility] resident endocrinology clinic. -patient takes Tresiba 50 mg Pm., and 7 units of prandial insulin. -temp of 97.8?, BP 126/78, HR 122, RR 17, O2 saturation 96% on room air. VBG pH 7.21, pCO2 28.6, PO2 24, HC03 11, T CO2 12, O2 saturation 33%, base excess -16, gap of 29. U/A:WBC 5-10 and squamous cell epithelial cells 5-10. No culture ordered. HGB of 16.1, HCT 49.3, sodium 133, chloride 96, BUN 20, HC03 8, -blood glucose in ED 668, upon admit 469, A1c >14%, ketones 13.88. Mag & phos ordered -Tele ICU participated in patient's admit. Ordered that pt have a diet: fluids progress as tolerated to Carb while on the drip. -heparin drip started in the ED, 1 Lbolus, 2 additional boluses ordered on admit -telemedicine. DKA/insulin drip protocol: NS @ 150cc/hr when blood sugar is less than 250 changed to D5 half-normal saline at 150 cc/hour.Once anion gap is closed pt will be bridged off insulin drip using her Tresiba. -Will check electrolytes including BMP, magnesium every 4 hours. Strict input and output monitoring Q shift, blood sugar checks Q 1-2 hours per potocol, monitor for potassium, potassium less than 3.3, hold insulin and replace with K rider replacement. Check mag & phos Q12Hr Will continue to monitor blood sugars a.c. and HS once off dri. Daily weight check, neuro check x1 and as needed, monitor for fluid overload. 2. Gastroparesis, secondary to uncontrolled diabetes chronic, stable, not present on admission. - ordered Reglan 10 mg IV q.6 as needed for nausea. 3. Neurogenic bladder secondary to autonomic nerve dysfunction secondary to uncontrolled diabetes, stable, chronic, not present on admission -patient reports no burning, strong urine smell or hematuria in the setting of neurogenic bladder. -urinalysis negative. 4. Malnutrition, as evidence by BMI of 16.2, acute on chronic, present on admis stephanie, secondary to patient's noncompliance in regards to type 1 diabetes insulin management -Patient's weight on 05/12/2020 was 49.89 kg, 10/18/2020 43 kg, today 38.8 kg. -dietary consult ordered regarding nutritional supplement VTE/DVT prophylaxis: SCDs, heparin 5000 units b.i.d. Code status: FULL CODE Surrogate decision maker: nina Gonzales. COVID-19 status: Negative Disposition: Estimated length of stay greater than 2 midnights I have utilized all available immediate resources to obtain, update, or review the patient's current medications. I confirmed that the patient's advanced care plan is present, Code status is documented and/or surrogate decision maker is listed in the patient's medical record. Quality VTE Deep Vein Thrombosis/Pulmonary Embolism Present on Admission: No
[2020-12-19 19:54] LABS: Magnesium 2.2 mg/dL (1.6-2.3); Salicylate < 1.0 mg/dL (<20)
[2020-12-19 19:57] LABS: Hemoglobin A1C% w Est Avg Glu > 14.0 % (4.0-6.0)
--- NOTE | 2020-12-19 20:48 | PC.NURSE ---
Patient admitted 1750 from ED to ICU under hospitalists care for DKA. Patient is A/Ox4, able to ambulate to bed but is weak and unsteady. Anion gap of 29. Insulin drip started in ED is running at 6ml/hr and NS at 150ml/hr is started. Patient received 1L NS in ED prior to arrival per report. Initial finger BG >500, lab ordered. HR and BP WNL, patient complains of generalized pain and itchiness. Toradol administered and IV benadryl ordered. Patient's home Tresiba pen placed in nurse civil process server, will be sent to pharmacy for label in AM. At [address] Moyer and MARGO Mendez- Dr. Moyer verbally ordered 2 L bolus NS on patient and said patient could have 'small meals if she feels up to eating'. Verified this order with both RN CARDIOVASCULAR and MD. Patient given chicken broth and water.
--- NOTE | 2020-12-19 20:49 | P.TELICUCN_ITS ---
History of Present Illness Consult details Chief complaint: BODY HURTS DEHYDRATION :: This patient was seen via real time interactive two-way audiovisual telecommunication. 30-year-old female with IDDM, frequent admissions with DKAs bec of poor control, admitted for body aches and generalized weakness, found to be in DKA. [facility] Medical History DKA (diabetic ketoacidoses) History of pyelonephritis Irregular menstrual cycle Migraine headache Nephrolithiasis Type 1 diabetes mellitus Surgical History History of ureter stent Hx of cataract surgery Hx of local excision of skin lesion Status post laser lithotripsy of ureteral calculus [place] teeth extracted Family History Father In good health Mother Cardiac disease Social History details: Engaged household members: family Smoking Status: Never smoker alcohol intake: never Current Medications Current Medications Medications: Home Medications glucose 4 gram chewable tablet 4 gram PO Q15M PRN #30 tab 12/12/18 [Rx Confirmed 12/19/20] glucagon (human recombinant) 1 mg solution for injection (Glucagon Emergency Kit) 1 mg SUBCUT DIRECTED 02/16/19 [History Confirmed 12/19/20] insulin degludec 200 unit/mL (3 mL) subcutaneous pen 53 unit SUBCUT 1100 11/21/19 [History Confirmed 12/19/20] insulin aspart U-100 100 unit/mL (3 mL) subcutaneous pen (Novolog Flexpen U-100 Insulin aspart) 10 unit SUBCUT AC 05/20/20 [History Confirmed 12/19/20] diphenhydramine HCl 50 mg capsule 50 mg PO BEDTIME PRN 09/29/20 [History Confirmed 12/19/20] Visit Medications (administered) Generic Name Dose Route Start Last Admin Trade Name Freq PRN Reason Stop Dose Admin Sodium Chloride 1,000 mls @ 150 mls/hr 12/19/20 16:45 12/19/20 17:40 Normal Saline 0.9% IV 150 mls/hr CONT BLAISE Infusion INSULIN DRIP PREMIX 100 unit in 100 mls @ 6 mls/hr 12/19/20 17:00 12/19/20 17:36 Myxredlin Drip Premix IV 6 mls/hr TITRATE BLAISE 6 mls/hr Titration Protocol INSULIN DRIP PREMIX 100 unit in 100 mls @ 6 mls/hr 12/19/20 19:30 12/19/20 20:14 Myxredlin Drip Premix IV Not Given TITRATE BLAISE Protocol Exam Vital Signs (past 8 hours): - 12/19/20 15:31 12/19/20 17:12 12/19/20 17:15 Temperature 98.5 F Pulse Rate 107 H 118 H 112 H Respiratory Rate 18 13 12 Blood Pressure 111/63 Pulse Oximetry 100 99 100 12/19/20 17:31 12/19/20 17:45 Temperature 97.8 F Pulse Rate 122 H Respiratory Rate 17 Blood Pressure 103/67 126/78 Pulse Oximetry 96 Oxygen Delivery Method Room Air Objective Labs Result Diagrams: 12/19/20 15:45 12/19/20 18:45 Labs: Laboratory Results - last 24 hr 12/19/20 12/19/20 12/19/20 15:25 15:45 15:45 WBC 7.1 RBC 5.00 Hgb 16.1 H Hct 49.3 H MCV 98.6 MCH 32.2 MCHC 32.7 RDW 12.8 Plt Count 377 Neut % (Auto) 66.4 Lymph % (Auto) 27.5 Sully % (Auto) 4.5 Eos % (Auto) 0.3 L Baso % (Auto) 1.3 Neut # (Auto) 4700 Lymph # (Auto) 1900 Sully # (Auto) 300 Eos # (Auto) 0 Baso # (Auto) 100 VBG pH VBG pCO2 VBG pO2 VBG HCO3 VBG Total CO2 VBG O2 Saturation VBG Base Excess Sodium 133 L Potassium 5.0 Chloride 96 L Carbon Dioxide 8 L* BUN 20 H Creatinine 0.62 Estimated GFR > 60.0 BUN/Creatinine Ratio 32.3 H Glucose 668 H* Hemoglobin A1c Lactate Calcium 10.1 Magnesium Total Bilirubin 0.6 AST 22 ALT 24 Alkaline Phosphatase 199 H Total Protein 8.0 Albumin 4.8 Globulin 3.2 Albumin/Globulin Ratio 1.5 Lipase Procalcitonin 0.09 Urine RBC None seen Urine WBC 5-10/hpf H Ur Squamous Epith Cells 5-10 /hpf H Ur Transition Epith Cell 1-5/hpf Urine Bacteria None seen Ur Culture Indicated? Cult not indicated Salicylates Ketones 13.88 H SARS-CoV-2 (PCR) 12/19/20 12/19/20 12/19/20 15:45 15:45 15:45 WBC RBC Hgb Hct MCV MCH MCHC RDW Plt Count Neut % (Auto) Lymph % (Auto) Sully % (Auto) Eos % (Auto) Baso % (Auto) Neut # (Auto) Lymph # (Auto) Sully # (Auto) Eos # (Auto) Baso # (Auto) VBG pH 7.21 L VBG pCO2 28.6 L VBG pO2 24 L VBG HCO3 11 L VBG Total CO2 12 L VBG O2 Saturation 33 L VBG Base Excess -16.0 L Sodium Potassium Chloride Carbon Dioxide BUN Creatinine Estimated GFR BUN/Creatinine Ratio Glucose Hemoglobin A1c Lactate 1.5 Calcium Magnesium Total Bilirubin AST ALT Alkaline Phosphatase Total Protein Albumin Globulin Albumin/Globulin Ratio Lipase 141 Procalcitonin Urine RBC Urine WBC Ur Squamous Epith Cells Ur Transition Epith Cell Urine Bacteria Ur Culture Indicated? Salicylates Ketones SARS-CoV-2 (PCR) 12/19/20 12/19/20 12/19/20 15:45 15:45 15:45 WBC RBC Hgb Hct MCV MCH MCHC RDW Plt Count Neut % (Auto) Lymph % (Auto) Sully % (Auto) Eos % (Auto) Baso % (Auto) Neut # (Auto) Lymph # (Auto) Sully # (Auto) Eos # (Auto) Baso # (Auto) VBG pH VBG pCO2 VBG pO2 VBG HCO3 VBG Total CO2 VBG O2 Saturation VBG Base Excess Sodium Potassium Chloride Carbon Dioxide BUN Creatinine Estimated GFR BUN/Creatinine Ratio Glucose Hemoglobin A1c > 14.0 H Lactate Calcium Magnesium 2.2 Total Bilirubin AST ALT Alkaline Phosphatase Total Protein Albumin Globulin Albumin/Globulin Ratio Lipase Procalcitonin Urine RBC Urine WBC Ur Squamous Epith Cells Ur Transition Epith Cell Urine Bacteria Ur Culture Indicated? Salicylates < 1.0 Ketones SARS-CoV-2 (PCR) 12/19/20 12/19/20 17:46 18:45 WBC RBC Hgb Hct MCV MCH MCHC RDW Plt Count Neut % (Auto) Lymph % (Auto) Sully % (Auto) Eos % (Auto) Baso % (Auto) Neut # (Auto) Lymph # (Auto) Sully # (Auto) Eos # (Auto) Baso # (Auto) VBG pH VBG pCO2 VBG pO2 VBG HCO3 VBG Total CO2 VBG O2 Saturation VBG Base Excess Sodium Potassium Chloride Carbon Dioxide BUN Creatinine Estimated GFR BUN/Creatinine Ratio Glucose 469 H D Hemoglobin A1c Lactate Calcium Magnesium Total Bilirubin AST ALT Alkaline Phosphatase Total Protein Albumin Globulin Albumin/Globulin Ratio Lipase Procalcitonin Urine RBC Urine WBC Ur Squamous Epith Cells Ur Transition Epith Cell Urine Bacteria Ur Culture Indicated? Salicylates Ketones SARS-CoV-2 (PCR) Negative Assessment & Plan Assessment & Plan narrative: 30-year-old female with IDDM, frequent admissions with DKAs bec of poor control, admitted for body aches and generalized weakness, found to be in DKA Assessment: DKA [facility] 2/2 the above Poorly controlled IDDM Rec: IV insulin and fluid per DKA protocol BMP Q4H, Mag and phos Q12, replace per protocol , keep K above 4 while on insulin drip Diabetic diet when able to tolerated PO Diabetic education Heparin for DVT ppx GI ppx NI Time Spent With Patient Critical Care time: I spent a total of [30] minutes of critical care time on this patient's care today; this time is exclusive of procedural time.
[2020-12-19] MEDS: DEXTROSE 5%-0.45% NS 1,000 ML 58 ML IV (21:14)
[2020-12-19] MEDS: diphenhydrAMINE 50 MG/ML VIAL 25 MG IV (21:16)
[2020-12-19] MEDS: HEPARIN 5,000 UNIT/ML VIAL 5000 UNIT SUBCUT (21:16)
[2020-12-19 22:01] LABS: BUN Creatinine Ratio 36.7 (6-22); Blood Urea Nitrogen 18 mg/dL (7-17); Calcium 8.9 mg/dL (8.4-10.2); Carbon Dioxide 16 mmol/L (22-32); Chloride 110 mmol/L (98-107); Estimated Glomerular Filt Rate > 60.0 mL/min (>60); Glucose 208 mg/dL (70-100); HEMOLYSIS < 15 (0-50); Potassium 3.3 mmol/L (3.4-5.1); Sodium 140 mmol/L (137-145)
[2020-12-19 23:42] VITALS: BP 109/73; PULSE 101; RESP 16; TEMP 36.2; O2SAT 100
[2020-12-20] MEDS: POTASSIUM CHLORIDE IN WATER 10 MEQ/100 ML PIGGYBACK 100 MEQ IV ×4 (00:13→03:52)
[2020-12-20 01:20] LABS: BUN Creatinine Ratio 40.4 (6-22); Blood Urea Nitrogen 19 mg/dL (7-17); Calcium 7.9 mg/dL (8.4-10.2); Carbon Dioxide 20 mmol/L (22-32); Chloride 109 mmol/L (98-107); Estimated Glomerular Filt Rate > 60.0 mL/min (>60); Glucose 189 mg/dL (70-100); HEMOLYSIS < 15 (0-50); Potassium 3.9 mmol/L (3.4-5.1); Sodium 135 mmol/L (137-145)
[2020-12-20] MEDS: KETOROLAC 30 MG/ML VIAL IV ×2 (01:22→08:10)
[2020-12-20 01:53] LABS: Magnesium 1.6 mg/dL (1.6-2.3); Phosphorous 3.3 mg/dL (2.5-4.5)
[2020-12-20 03:10] VITALS: BP 94/52; PULSE 97; RESP 18; TEMP 36.2; O2SAT 96
[2020-12-20] MEDS: diphenhydrAMINE 50 MG/ML VIAL 25 MG IV ×2 (03:51→08:10)
[2020-12-20 05:20] LABS: Add Manual Diff / Slide Review NO; Basophils Absolute Auto 100 /uL (0-100); Basophils Percent Auto 0.7 % (0-2); Eosinophils Absolute Auto 100 /uL (0-450); Hematocrit 36.3 % (36-46); Hemoglobin 12.3 g/dL (12.0-16.0); Lymphocytes Absolute Auto 2700 /uL (1100-4500); Mean Corpuscular HGB Conc 33.9 % (30-36); Mean Corpuscular Volume 94.5 fL (80-100); Monocytes Absolute Auto 700 /uL (0-900); Monocytes Percent Auto 9.5 % (3-14); Neutrophils Absolute Auto 4200 /uL (1500-7000); Neutrophils Percent Auto 53.8 % (50-75); Platelet Count 309 X10^3/uL (150-400); Red Blood Cell Count 3.84 X10^6/uL (4.0-5.2); Red Cell Distribution Width 12.7 % (11.6-14.8); White Blood Cell Count 7.8 X10^3/uL (4.5-11.0)
[2020-12-20 05:24] LABS: Lactate (Lactic Acid) 0.8 mmol/L (0.7-2.1)
[2020-12-20 05:26] LABS: Alanine Aminotransferase 16 IU/L (<35); Albumin 3.1 g/dL (3.5-5.0); Albumin Globulin Ratio 1.2 (1.0-2.8); Alkaline Phosphatase 100 U/L (38-126); Aspartate Aminotransferase 21 IU/L (14-36); BUN Creatinine Ratio 51.2 (6-22); Bilirubin Total 0.2 mg/dL (0.2-1.3); Blood Urea Nitrogen 21 mg/dL (7-17); Calcium 8.1 mg/dL (8.4-10.2); Carbon Dioxide 19 mmol/L (22-32); Chloride 110 mmol/L (98-107); Estimated Glomerular Filt Rate > 60.0 mL/min (>60); Globulin 2.6 g/dL (1.7-4.1); Glucose 114 mg/dL (70-100); HEMOLYSIS < 15 (0-50); Potassium 4.5 mmol/L (3.4-5.1); Sodium 133 mmol/L (137-145); Total Protein 5.7 g/dL (6.3-8.2)
[2020-12-20 05:55] LABS: Cortisol AM (Before 10AM) 6.62 ug/dL (4.46-22.7)
--- NOTE | 2020-12-20 06:26 | PC.NURSE ---
Aircraft Electrician Note-Patient has been on insulin gtt overnight, off at 0600, [id number] down to 90, see flow sheet. She has been eating ada diet without nausea. 40meq K+ riders infused. IV Toradol given for general pain, IV Benadryl given for itching SR. VSS.
[2020-12-20 07:59] VITALS: O2SAT 96
[2020-12-20 08:00] VITALS: BP 127/85; PULSE 91; RESP 17; TEMP 36.6; O2SAT 100
--- NOTE | 2020-12-20 11:45 | PM.DS.1 ---
History of Present Illness History of Present Illness Chief complaint: BODY HURTS DEHYDRATION Narrative: Ms. Sarabjit Jimenes is a 29-year-old female patient with a history significant for poorly controlled type 1 diabetes, frequent admissions for DKA, migraines and irregular menstruation who presents to the ER complaining of DKA. She was recently discharged 12/06/2020 for DKA. The hospitalist service has consulted with her paper cup handle machine operator in the past, and has been advised that her brittle DM issues are psych nature, not diabetic or endocrine driven. Though patient will verbalize on each admit that she is compliant with her insulins, on record A1C: 2019-current have all been >14%. She reports complaints of abdominal pain with nausea without vomiting or abdominal pain. She denies complaints of constipation or diarrhea. She reports having no menstrual periods for over a year. Patient verbalized that overall felt very poor with chills and body aches, without fever. She denies any vaginal discharge or pruritus. Patient denies any recent precipitating factor such as recent illness injury or trauma. Patient reports that she is compliant with her insulin, continued poor appetite and weight loss. Patient's weight on 05/12/2020 was 49.89 kg, 10/18/2020 43 kg, today 38.8 kg. Patient denies alcohol intake or recreational substances. Patient denies chest pain or shortness of breath. Patient is moderately ill appearing, with a more doran like face on this admit. Patient has had 3 ED only visits, and 6 hospital admissions to date 07/2020. Upon admit patient's vitals were stable with a temp of 97.8?, BP 126/78, HR tachycardic at 1:22 a.m., RR 17, O2 saturation 96% on room air. Tele ICU participated in patient's admit. VBG pH 7.21, pCO2 28.6, PO2 24, HC03 11, T CO2 12, O2 saturation 33%, base excess -16, patient has a gap of 29. Patient's UA was predominantly negative only demonstrated WBC 5-10 and squamous cell epithelial cells 5-10. No culture ordered. Patient had a HGB of 16.1, HCT 49.3, sodium 133, chloride 96, BUN 20, HC03 8, blood glucose in ED 668, upon admit 469, A1c >14%, lipase and lactate WNL, procalcitonin 0.09 WNL, ketones 13.88. Patient was placed on a heparin drip in the ED and given a 1 L bolus of fluid. Patient admitted for DKA Discharge Providers Provider Date of admission: 12/19/20 17:10 Discharge Date: 12/20/20 Primary care physician: Maria Ines Limon, Consults: 12/19/20 19:38 Consult to Dietitian, Adult Routine Comment: Reason For Exam: Malnourished type 1 diabetes Discharge provider: Gale Arita MD Summary Hospital Course Discharge Diagnosis: 1. Diabetic ketoacidosis, present on admission 2. Poorly compliant with insulin regimen 3. Unvaccinated for Covid-19 4. History of Migraine JUAREZ Hospital Course: Patient was admitted to the hospital for DKA. She was placed on an insulin drip, given IV hydration and had improvement of her blood sugar and acidosis. Patient was able to tolerate a diet. By the morning she had a blood sugar of 114 and was able to resume her treciba at 53 units which is her usual dose. Patient is scheduled to see our community nutrition educator to discuss diet and management of her diabetes prior to discharge. She feels improved and is ready for discharge home. Of note, the patient reiterates that she has been taking her insulin as prescribed. She has an appointment with her PCP in [facility] on December 27. She states she will be getting a referral to an Hospital Wellness Coordinator in [place] that appointment. She was offered the Covid-19 vaccine but declined as she was informed she need to have her 'levels improve first. She also was offered a statin given her diabetes, but she said she would follow up with her PCP and discuss later. Overall, she is back to baseline and ready for discharge home. Status at Discharge Cognitive/behavioral status at discharge: oriented Functional status at discharge: independent ambulation Overall status at discharge: patient is back to baseline Exam Vital Signs (past 8 hours): - 12/20/20 07:59 12/20/20 08:00 Temperature 97.9 F Pulse Rate 91 H Respiratory Rate 17 Blood Pressure 127/85 Pulse Oximetry 96 100 Oxygen Delivery Method Room Air Oxygen Flow Rate 0 Narrative Exam Narrative: ill appearing female with Doran Facies Resp Other: Lungs: clear to auscultation Cardio Other: RRR nl Sl S2 2/6 KENNY GI Other: abdomen: soft/ non tender Extrem Other: No edema Objective Labs Result Diagrams: 12/20/20 05:10 12/20/20 05:10 Labs: Laboratory Results - last 24 hr 12/19/20 12/19/20 12/19/20 15:25 15:45 15:45 WBC 7.1 RBC 5.00 Hgb 16.1 H Hct 49.3 H MCV 98.6 MCH 32.2 MCHC 32.7 RDW 12.8 Plt Count 377 Neut % (Auto) 66.4 Lymph % (Auto) 27.5 Giles % (Auto) 4.5 Eos % (Auto) 0.3 L Baso % (Auto) 1.3 Neut # (Auto) 4700 Lymph # (Auto) 1900 Giles # (Auto) 300 Eos # (Auto) 0 Baso # (Auto) 100 VBG pH VBG pCO2 VBG pO2 VBG HCO3 VBG Total CO2 VBG O2 Saturation VBG Base Excess Sodium 133 L Potassium 5.0 Chloride 96 L Carbon Dioxide 8 L* BUN 20 H Creatinine 0.62 Estimated GFR > 60.0 BUN/Creatinine Ratio 32.3 H Glucose 668 H* Hemoglobin A1c Lactate Calcium 10.1 Phosphorus Magnesium Total Bilirubin 0.6 AST 22 ALT 24 Alkaline Phosphatase 199 H Total Protein 8.0 Albumin 4.8 Globulin 3.2 Albumin/Globulin Ratio 1.5 Lipase Procalcitonin 0.09 Cortisol AM Sample Urine RBC None seen Urine WBC 5-10/hpf H Ur Squamous Epith Cells 5-10 /hpf H Ur Transition Epith Cell 1-5/hpf Urine Bacteria None seen Ur Culture Indicated? Cult not indicated Salicylates Ketones 13.88 H SARS-CoV-2 (PCR) 12/19/20 12/19/20 12/19/20 15:45 15:45 15:45 WBC RBC Hgb Hct MCV MCH MCHC RDW Plt Count Neut % (Auto) Lymph % (Auto) Giles % (Auto) Eos % (Auto) Baso % (Auto) Neut # (Auto) Lymph # (Auto) Giles # (Auto) Eos # (Auto) Baso # (Auto) VBG pH 7.21 L VBG pCO2 28.6 L VBG pO2 24 L VBG HCO3 11 L VBG Total CO2 12 L VBG O2 Saturation 33 L VBG Base Excess -16.0 L Sodium Potassium Chloride Carbon Dioxide BUN Creatinine Estimated GFR BUN/Creatinine Ratio Glucose Hemoglobin A1c Lactate 1.5 Calcium Phosphorus Magnesium Total Bilirubin AST ALT Alkaline Phosphatase Total Protein Albumin Globulin Albumin/Globulin Ratio Lipase 141 Procalcitonin Cortisol AM Sample Urine RBC Urine WBC Ur Squamous Epith Cells Ur Transition Epith Cell Urine Bacteria Ur Culture Indicated? Salicylates Ketones SARS-CoV-2 (PCR) 12/19/20 12/19/20 12/19/20 15:45 15:45 15:45 WBC RBC Hgb Hct MCV MCH MCHC RDW Plt Count Neut % (Auto) Lymph % (Auto) Giles % (Auto) Eos % (Auto) Baso % (Auto) Neut # (Auto) Lymph # (Auto) Giles # (Auto) Eos # (Auto) Baso # (Auto) VBG pH VBG pCO2 VBG pO2 VBG HCO3 VBG Total CO2 VBG O2 Saturation VBG Base Excess Sodium Potassium Chloride Carbon Dioxide BUN Creatinine Estimated GFR BUN/Creatinine Ratio Glucose Hemoglobin A1c > 14.0 H Lactate Calcium Phosphorus Magnesium 2.2 Total Bilirubin AST ALT Alkaline Phosphatase Total Protein Albumin Globulin Albumin/Globulin Ratio Lipase Procalcitonin Cortisol AM Sample Urine RBC Urine WBC Ur Squamous Epith Cells Ur Transition Epith Cell Urine Bacteria Ur Culture Indicated? Salicylates < 1.0 Ketones SARS-CoV-2 (PCR) 12/19/20 12/19/20 12/19/20 17:46 18:45 21:45 WBC RBC Hgb Hct MCV MCH MCHC RDW Plt Count Neut % (Auto) Lymph % (Auto) Giles % (Auto) Eos % (Auto) Baso % (Auto) Neut # (Auto) Lymph # (Auto) Giles # (Auto) Eos # (Auto) Baso # (Auto) VBG pH VBG pCO2 VBG pO2 VBG HCO3 VBG Total CO2 VBG O2 Saturation VBG Base Excess Sodium 140 Potassium 3.3 L D Chloride 110 H Carbon Dioxide 16 L BUN 18 H Creatinine 0.49 L Estimated GFR > 60.0 BUN/Creatinine Ratio 36.7 H Glucose 469 H D 208 H D Hemoglobin A1c Lactate Calcium 8.9 Phosphorus Magnesium Total Bilirubin AST ALT Alkaline Phosphatase Total Protein Albumin Globulin Albumin/Globulin Ratio Lipase Procalcitonin Cortisol AM Sample Urine RBC Urine WBC Ur Squamous Epith Cells Ur Transition Epith Cell Urine Bacteria Ur Culture Indicated? Salicylates Ketones SARS-CoV-2 (PCR) Negative 12/20/20 12/20/20 12/20/20 01:05 01:05 05:10 WBC 7.8 RBC 3.84 L Hgb 12.3 Hct 36.3 MCV 94.5 D MCH 32.0 MCHC 33.9 RDW 12.7 Plt Count 309 Neut % (Auto) 53.8 Lymph % (Auto) 35.0 Giles % (Auto) 9.5 Eos % (Auto) 1.0 L Baso % (Auto) 0.7 Neut # (Auto) 4200 Lymph # (Auto) 2700 Giles # (Auto) 700 Eos # (Auto) 100 Baso # (Auto) 100 VBG pH VBG pCO2 VBG pO2 VBG HCO3 VBG Total CO2 VBG O2 Saturation VBG Base Excess Sodium 135 L Potassium 3.9 Chloride 109 H Carbon Dioxide 20 L BUN 19 H Creatinine 0.47 L Estimated GFR > 60.0 BUN/Creatinine Ratio 40.4 H Glucose 189 H Hemoglobin A1c Lactate Calcium 7.9 L Phosphorus 3.3 Magnesium 1.6 Total Bilirubin AST ALT Alkaline Phosphatase Total Protein Albumin Globulin Albumin/Globulin Ratio Lipase Procalcitonin Cortisol AM Sample Urine RBC Urine WBC Ur Squamous Epith Cells Ur Transition Epith Cell Urine Bacteria Ur Culture Indicated? Salicylates Ketones SARS-CoV-2 (PCR) 12/20/20 12/20/20 12/20/20 05:10 05:10 05:10 WBC RBC Hgb Hct MCV MCH MCHC RDW Plt Count Neut % (Auto) Lymph % (Auto) Giles % (Auto) Eos % (Auto) Baso % (Auto) Neut # (Auto) Lymph # (Auto) Giles # (Auto) Eos # (Auto) Baso # (Auto) VBG pH VBG pCO2 VBG pO2 VBG HCO3 VBG Total CO2 VBG O2 Saturation VBG Base Excess Sodium 133 L Potassium 4.5 Chloride 110 H Carbon Dioxide 19 L BUN 21 H Creatinine 0.41 L Estimated GFR > 60.0 BUN/Creatinine Ratio 51.2 H Glucose 114 H Hemoglobin A1c Lactate 0.8 Calcium 8.1 L Phosphorus Magnesium Total Bilirubin 0.2 AST 21 ALT 16 Alkaline Phosphatase 100 D Total Protein 5.7 L Albumin 3.1 L Globulin 2.6 Albumin/Globulin Ratio 1.2 Lipase Procalcitonin Cortisol AM Sample 6.62 Urine RBC Urine WBC Ur Squamous Epith Cells Ur Transition Epith Cell Urine Bacteria Ur Culture Indicated? Salicylates Ketones SARS-CoV-2 (PCR) PFSH Medical History DKA (diabetic ketoacidoses) History of pyelonephritis Irregular menstrual cycle Migraine headache Nephrolithiasis Type 1 diabetes mellitus Surgical History History of ureter stent Hx of cataract surgery Hx of local excision of skin lesion Status post laser lithotripsy of ureteral calculus [place] teeth extracted Family History Father In good health Mother Cardiac disease Social History details: Engaged household members: family Smoking Status: Never smoker alcohol intake: never Discharge Assessment & Plan Assessment and Plan Assessment: Diabetic Ketoacidosis Type 1 Diabetes poorly controlled Plan of Treatment: Resume usual insulin Follow up with PCP as scheduled Await Companion Caregiver consult prior to discharge Discharge Plan Discharge Plan Patient Disposition: Home Discharge orders & Medications Prescriptions: Continued glucose 4 gram tablet,chewable 4 gram PO Q15M PRN (Reason: hypoglycemia) Qty: 30 RF: 0 Glucagon Emergency Kit (human) 1 mg recon soln 1 mg subcut DIRECTED RF: 0 insulin degludec 200 unit/mL (3 mL) Insulin Pen 53 unit SUBCUT 1100 RF: 0 insulin aspart U-100 [Novolog Flexpen U-100 Insulin] 100 unit/mL (3 mL) insulin pen 10 unit SUBCUT AC RF: 0 diphenhydramine HCl 50 mg Capsule 50 mg PO BEDTIME PRN (Reason: Sleep) RF: 0 Follow up/Referrals: Maria Ines Limon DO [Primary Care Provider] - Discharge Data Primary Care Provider: Maria Ines Limon Quality VTE Deep Vein Thrombosis/Pulmonary Embolism Present on Admission: No
[2020-12-20 12:00] VITALS: BP 99/61; PULSE 104; RESP 17; TEMP 37.2; O2SAT 99
[2020-12-20] MEDS: INSULIN LISPRO 100 UNIT/ML 3ML VIAL SUBCUT (12:17)
--- NOTE | 2020-12-20 13:27 | PC.NURSE ---
Day Shift/Discharge Note Insulin gtt off at AM assessment and morning CBG 189. Called Dr. Arita for subcut insulin orders and received orders to give Tresiba 53 units, restart insulin gtt per DKA protocol, and then turn off after one hour with sliding scale insulin for future mealtimes. All this was completed as ordered. CBG [address] Arita called for additional insulin orders. VTO received to give 10 units insulin lispro one time. Dietary consult ordered and dynamite shooter was expected to meet with pt around lunchtime - as communicated in multidisciplinary rounds. Cheese Maker called and message left at about 1300 as pt's mother had arrived and was needing to leave. Explained to pt and pt's mother that we were waiting for a call back but pt declined consult at this time and left with mother at 1325. Escorted to hospital exit via wheelchair. All questions answered. Tresiba pen given back to pt.
--- NOTE | 2020-12-20 14:06 | CM.DANOTE ---
Discharge Planning/Care Management DCP: assessment: case received and discussed in Team Rounds. READMIT: noted. Flat Knitter Helper Ellen was present during Rounds and said that the clinical educator would be up to later today. A check in now shows a d/c order in place. Went to check in with pt as thus far note from the diabetes education. Room empty. roller machine operator says that pt and her mother waited until 1330 and then wished to wait no longer and left for home. Pt has an appointment with her PCP on December 27. CM Discharge Assessment Start: 12/20/20 13:56 Freq: Status: Discharge Protocol: Document 12/20/20 14:01 ITV (Rec: 12/20/20 14:04 ITV [id number]) Discharge Planning Assessment Advance Directives? No Advance Directives on File No History Provided By Medical Record Has Patient been admitted in last 30 Yes days? Comment 12/05/20 and with a d/c home in care of her mother Argelia Prior Living Arrangements House Household Members family Independent with ADL's Yes Is patient alert and oriented? Yes Comment PCP is Dr. Limon at [facility] ph# . Discharge Plan Home Transportation Arrangement pt's mother Argelia, with whom she lives will provide transportation at time of D/C Review Status In Process
[2020-12-21 14:16] LABS: Osmolality, Serum 289 mOsmol/kg (275-295)
== END 2020-12-20 13:25 | disposition home or self-care (01) | DRG 638 ==
LOC: ED 15:27 → AC 17:11 → ICU 12-20 08:20
PROVIDERS: Nurse Practitioner Family; Admitting Provider Internal Medicine; Emergency Provider Emergency Medicine; PCP Student in an Organized Health Care Education/Training Program; Referring Provider Emergency Medicine; Visit Provider Internal Medicine
DX: E10.10 Type 1 diabetes mellitus with ketoacidosis without coma (principal); Z68.1 Body mass index [BMI] 19.9 or less, adult; E10.43 Type 1 diabetes mellitus with diabetic autonomic (poly)neuropathy; K31.84 Gastroparesis; Z91.14 Patient's other noncompliance with medication regimen; Z79.4 Long term (current) use of insulin; Z20.822 Contact with and (suspected) exposure to COVID-19; R63.4 Abnormal weight loss
CPT/HCPCS: 36415; 80048; 80053; 80329; 81003; 81015; 81025; 82009; 82533; 82805; 82947; 82962; 83036; 83605; 83690; 83735; 83930; 84100; 84145; 85025; 87040; 87635; 93005; 94762; 96361; 96374; 96375; 99284; 99291; 99292; C9803; G0480; J1170; J1200; J1644; J1815; J1885; J2405

== ENCOUNTER 2021-01-02 16:17 | Inpatient (IN) | payer OTHER, MEDICAID, SELFPAY ==
[2021-01-02] VITALS (22 sets, daily range): BP systolic 86–108; BP diastolic 51–70; PULSE 114–136; RESP 12–26; TEMP 35.7–36.4; O2SAT 96–100; BMI 16.6
[2021-01-02] MEDS: SODIUM CHLORIDE 0.9% 1,000 ML 1000 ML IV ×2 (16:50→18:28)
[2021-01-02 16:56] LABS: Add Manual Diff / Slide Review NO; Basophils Absolute Auto 200 /uL (0-100); Basophils Percent Auto 1.6 % (0-2); Eosinophils Absolute Auto 0 /uL (0-450); Eosinophils Percent Auto 0.1 % (2-4); Hematocrit 49.3 % (36-46); Hemoglobin 15.1 g/dL (12.0-16.0); Lymphocytes Absolute Auto 2500 /uL (1100-4500); Lymphocytes Percent Auto 20.1 % (25-40); Mean Corpuscular HGB Conc 30.5 % (30-36); Mean Corpuscular Volume 104.9 fL (80-100); Monocytes Absolute Auto 500 /uL (0-900); Monocytes Percent Auto 4.3 % (3-14); Neutrophils Absolute Auto 9100 /uL (1500-7000); Neutrophils Percent Auto 73.9 % (50-75); Platelet Count 475 X10^3/uL (150-400); Red Cell Distribution Width 13.4 % (11.6-14.8); White Blood Cell Count 12.3 X10^3/uL (4.5-11.0)
[2021-01-02 17:06] LABS: Alanine Aminotransferase 33 IU/L (<35); Albumin 4.7 g/dL (3.5-5.0); Albumin Globulin Ratio 1.5 (1.0-2.8); Alkaline Phosphatase 225 U/L (38-126); Aspartate Aminotransferase 27 IU/L (14-36); BUN Creatinine Ratio 30.7 (6-22); Bilirubin Total 0.5 mg/dL (0.2-1.3); Blood Urea Nitrogen 31 mg/dL (7-17); Calcium 10.1 mg/dL (8.4-10.2); Chloride 100 mmol/L (98-107); Estimated Glomerular Filt Rate > 60.0 mL/min (>60); Globulin 3.2 g/dL (1.7-4.1); Lactate (Lactic Acid) 2.5 mmol/L (0.7-2.1); Sodium 137 mmol/L (137-145); Total Protein 7.9 g/dL (6.3-8.2)
[2021-01-02 17:15] LABS: Potassium 5.5 mmol/L (3.4-5.1)
[2021-01-02 17:16] LABS: Carbon Dioxide < 5 mmol/L (22-32)
[2021-01-02 17:17] LABS: Glucose 827 mg/dL (70-100)
[2021-01-02 17:24] LABS: HEMOLYSIS 49 (0-50); Ketones (Beta-Hydroxybutyrate) 18.03 mmol/L (<0.27)
[2021-01-02] MEDS: HYDROMORPHONE 1 MG INJ IV (17:36)
[2021-01-02] MEDS: ONDANSETRON 4 MG/2 ML INJ IV (17:36)
[2021-01-02 17:41] LABS: HCO3 VBG 4 mmol/L (23-28); Oxygen Saturation VBG 76 % (70-75); PO2 VBG 66 mmHg (35-45); Total CO2 VBG < 5 mmol/L (24-29); pH VBG 6.91 (7.33-7.43)
[2021-01-02 18:18] LABS: COVID19 - ADMIT (NP swab/PCR) Negative (Negative)
[2021-01-02] MEDS: INSULIN DRIP PREMIX 100 UNIT/100 ML PLAST..BAG IV ×2 (18:27→21:00)
[2021-01-02 18:38] LABS: Pregnancy Test Serum,Qual Negative (Negative)
[2021-01-02 18:51] LABS: Reflexed Lactate in 2 Hours Y
--- NOTE | 2021-01-02 19:34 | ED.GENADULT ---
HPI - General Adult General Chief complaint: Diabetic Problem Stated complaint: Really Dehydrated Time Seen by Provider: 01/02/21 16:44 Source: patient and family Mode of arrival: Wheelchair History of Present Illness HPI narrative: 30-year-old woman with brittle type 1 diabetes and multiple admissions to this hospital with DKA. Presents today complaining that she is dehydrated and is again in DKA. She states that she has been taking her insulin, she has not been sick recently she has been eating and drinking appropriately she has no complaints of diarrhea, dysuria, flank pain. There are no skin complaints or findings. She does not have any neurologic complaints and complains of no headache. Main complaint is that she is very dry and thirsty. Related Data Home Medications Medication Instructions Recorded Confirmed glucagon (human recombinant) 1 mg 1 mg SUBCUT DIRECTED 02/16/19 12/19/20 solution for injection (Glucagon Emergency Kit) insulin degludec 200 unit/mL (3 53 unit SUBCUT 1100 11/21/19 12/19/20 mL) subcutaneous pen insulin aspart U-100 100 unit/mL 10 unit SUBCUT AC 05/20/20 12/19/20 (3 mL) subcutaneous pen (Novolog Flexpen U-100 Insulin aspart) diphenhydramine HCl 50 mg capsule 50 mg PO BEDTIME PRN 09/29/20 12/19/20 Previous Rx's Medication Instructions Recorded glucose 4 gram chewable tablet 4 gram PO Q15M PRN #30 tab 12/12/18 Allergies Allergy/AdvReac Type Severity Reaction Status Date / Time abdalla [ABDALLA] Allergy Intermediate Hives, Verified 01/02/21 17:05 pruritus iodine [IODINE] Allergy Intermediate rash, itchy Verified 01/02/21 17:05 morphine Allergy Intermediate Difficulty Verified 01/02/21 17:05 Breathing shellfish derived Allergy Intermediate rash Verified 01/02/21 17:05 [SHELLFISH DERIVED] adhesive [ADHESIVE] Allergy Unknown tape Verified 01/02/21 17:05 latex [LATEX] Allergy Unknown Hives Verified 01/02/21 17:05 Review of Systems Review of Systems Narrative: Remainder of complete review of systems is otherwise unremarkable except for that included in the HPI. Patient History Medical History DKA (diabetic ketoacidoses) History of pyelonephritis Irregular menstrual cycle Migraine headache Nephrolithiasis Type 1 diabetes mellitus Surgical History History of ureter stent Hx of cataract surgery Hx of local excision of skin lesion Status post laser lithotripsy of ureteral calculus [place] teeth extracted Family History Father In good health Mother Cardiac disease Social History details: Engaged household members: family Smoking Status: Never smoker alcohol intake: never Smoking Status: Never smoker alcohol intake frequency: holidays/special occasions only Substance Use Type: does not use Exam Narrative Exam Narrative: General: Frail and cachectic, in no acute distress. No kusmal breathing. Minimally interactive HEENT: Dry mucous membranes, normal sclera with reactive pupils, Neck: No JVD, supple Respiratory: Lungs are clear to auscultation, no wheezing no rales no rhonchi. Full and symmetrical air movement Cardiac: Tachycardic but otherwise Regular rate and rhythm no murmurs no bruits Abdomen: Soft, mild distension but minimal diffuse tenderness, hypoactive but present bowel tones, no flank pain Skin: Warm and dry, no rashes, no cellulitis no skin breakdown no mottling Neurologic: Globally weak but Grossly neurologically intact with no obvious asymmetries or abnormalities Extremities: No trauma, diminished peripheral pulses Psych: Cooperative, poor insight, affect is distant and minimally interactive Initial Vital Signs Initial Vital Signs: Vital Signs Temperature 96.3 F L 01/02/21 16:30 Pulse Rate 136 H 01/02/21 16:30 Respiratory Rate 26 H 01/02/21 16:30 Blood Pressure 107/68 01/02/21 16:30 Pulse Oximetry 100 01/02/21 16:30 Course Orders Ordered: Acetaminophen (Acetaminophen 325 Mg Tablet) 650 mg PO Q4HR PRN PRN Reason: Fever/Mild Pain (1-3) Hydrocodone Bitart/Acetaminophen (Hydrocodone/Acet 5/325 Tablet) 2 tab PO Q6HR PRN PRN Reason: Pain, Severe (7-10) Last Admin: 01/03/21 03:19 Dose: 2 tab Documented by: [email or web address] Al Hydrox/Mg Hydrox/Simethicone (Mag Hydrox/Alum/Simeth 30 Ml Udc) 30 ml PO Q6HR PRN PRN Reason: Dyspepsia Dextrose (Dextrose 50 % In Water 25 Gm/50 Ml Syringe) 25 gm IV PRN PRN PRN Reason: Hypoglycemia Heparin Sodium (Porcine) (Heparin 5,000 Unit/Ml Vial) 5,000 unit SUBCUT BID BLAISE INSULIN DRIP PREMIX (Myxredlin Drip Premix) 100 unit in 100 mls @ 6 mls/hr IV TITRATE BLAISE; Protocol Last Titration: 01/03/21 05:00 Dose: 1.5 ml/hr, 1.5 mls/hr Documented by: JOSE Cosigned by: SMITH Titration: 01/03/21 04:09 Dose: 1 ml/hr, 1 mls/hr Documented by: JOSE Cosigned by: SMITH Titration: 01/03/21 03:05 Dose: 2 ml/hr, 2 mls/hr Documented by: JOSE Cosigned by: SMITH Titration: 01/03/21 02:13 Dose: 8 ml/hr, 8 mls/hr Documented by: JOSE Cosigned by: SMITH Titration: 01/03/21 00:17 Dose: 10 ml/hr, 10 mls/hr Documented by: JOSE Cosigned by: SMITH Titration: 01/03/21 00:16 Dose: 6 ml/hr, 6 mls/hr Documented by: JOSE Cosigned by: SMITH Admin: 01/02/21 21:00 Dose: 4 ml/hr, 4 mls/hr Documented by: JOSE Cosigned by: SMITH Dextrose/Lactated Ringer's (Dextrose 5%-Lactated Ringers) 1,000 mls @ 150 mls/hr IV CONT BLAISE Last Admin: 01/03/21 04:09 Dose: 150 mls/hr Documented by: JOSE Insulin Human Lispro (Insulin Lispro 100 Unit/Ml 3ml Vial) 0 unit SUBCUT ACHS BLAISE; Protocol Last Admin: 01/02/21 21:00 Dose: Not Given Documented by: JOSE Metoclopramide HCl (Metoclopramide 10 Mg/2 Ml Inj) 10 mg IV Q6HR PRN PRN Reason: Nausea And Vomiting Naloxone HCl (Naloxone 0.4 Mg/Ml Vial) 0.2 mg IV Q2MIN PRN PRN Reason: Opiate Reversal Ondansetron HCl (Ondansetron 4 Mg/2 Ml Inj) 4 mg IV Q8HR PRN PRN Reason: Nausea And Vomiting Discontinued Medications Dextrose (Dextrose 50 % In Water 25 Gm/50 Ml Syringe) 25 gm IV PRN PRN PRN Reason: Hypoglycemia Enoxaparin Sodium (Enoxaparin 40 Mg/0.4 Ml Syringe) 40 mg SUBCUT DAILY BLAISE Hydromorphone HCl (Hydromorphone 1 Mg Inj) 1 mg IV NOW ONE Stop: 01/02/21 17:29 Last Admin: 01/02/21 17:36 Dose: 1 mg Documented by: SILVIA Sodium Chloride (Normal Saline 0.9%) 1,000 mls @ 1,000 mls/hr IV BOLUS ONE Stop: 01/02/21 17:43 Last Infusion: 01/02/21 18:28 Dose: 0 mls/hr Documented by: Admin: 01/02/21 16:50 Dose: 1,000 mls/hr Documented by: SILVIA Sodium Chloride (Normal Saline 0.9%) 1,000 mls @ 1,000 mls/hr IV BOLUS ONE Stop: 01/02/21 17:45 Last Infusion: 01/02/21 19:54 Dose: 0 mls/hr Documented by: Admin: 01/02/21 18:28 Dose: 1,000 mls/hr Documented by: SILVIA INSULIN DRIP PREMIX (Myxredlin Drip Premix) 100 unit in 100 mls @ 4 mls/hr IV TITRATE BLAISE; Protocol Last Titration: 01/02/21 20:55 Dose: 0 mls/hr, 0 mls/hr Documented by: SILVIA Cosigned by: ANAMIKA Admin: 01/02/21 18:27 Dose: 4 mls/hr, 4 mls/hr Documented by: SILVIA Cosigned by: SHERWIN INSULIN DRIP PREMIX (Myxredlin Drip Premix) 100 unit in 100 mls @ 6 mls/hr IV TITRATE BLAISE; Protocol Sodium Chloride (Normal Saline 0.9%) 1,000 mls @ 500 mls/hr IV CONT BLAISE INSULIN DRIP PREMIX (Myxredlin Drip Premix) 100 unit in 100 mls @ 6 mls/hr IV TITRATE BLAISE; Protocol Lactated Ringer's (Lactated Ringers) 1,000 mls @ 125 mls/hr IV CONT BLAISE Last Infusion: 01/03/21 04:09 Dose: 0 mls/hr Documented by: Admin: 01/03/21 00:07 Dose: 125 mls/hr Documented by: CTREDUARDO Lactated Ringer's (Lactated Ringers) 1,000 mls @ 1,000 mls/hr IV BOLUS ONE Stop: 01/03/21 01:05 Last Admin: 01/03/21 01:13 Dose: 1,000 mls/hr Documented by: CTREDUARDO Magnesium Sulfate (Magnesium Sulfate) 2 gm in 50 mls @ 25 mls/hr IV NOW ONE Stop: 01/03/21 04:13 Last Admin: 01/03/21 03:19 Dose: 25 mls/hr Documented by: JOSE Cosigned by: SMITH Insulin Glargine (Insulin Glargine 100 Unit/Ml 3ml Pen) 53 unit SUBCUT 1100 [facility] Insulin Glargine (Insulin Glargine 100 Unit/Ml 3ml Pen) 20 unit SUBCUT BEDTIME ONE Stop: 01/02/21 22:54 Last Admin: 01/03/21 00:08 Dose: 20 unit Documented by: JOSE Cosigned by: SMITH Insulin Glargine (Insulin Glargine 100 Unit/Ml 3ml Pen) 20 unit SUBCUT BEDTIME ONE Stop: 01/02/21 23:46 Last Admin: 01/03/21 02:14 Dose: Not Given Documented by: JOSE Ketorolac Tromethamine (Ketorolac 30 Mg/Ml Vial) 30 mg IV Q6HR PRN PRN Reason: Pain, Severe (7-10) Stop: 01/07/21 20:19 Last Admin: 01/03/21 00:44 Dose: 30 mg Documented by: JOSE Ondansetron HCl (Ondansetron 4 Mg/2 Ml Inj) 4 mg IV NOW ONE Stop: 01/02/21 17:29 Last Admin: 01/02/21 17:36 Dose: 4 mg Documented by: SILVIA Vital Signs Vital signs: Vital Signs - 8 hr 01/02/21 16:30 01/02/21 17:05 01/02/21 17:15 Temperature 96.3 F L Pulse Rate 136 H 128 H 128 H Respiratory Rate 26 H 23 23 Blood Pressure 107/68 Pulse Oximetry 100 100 100 01/02/21 17:30 01/02/21 17:45 01/02/21 18:00 Temperature Pulse Rate 128 H 122 H 116 H Respiratory Rate 23 18 16 Blood Pressure 108/70 92/55 L Pulse Oximetry 99 99 100 01/02/21 18:15 01/02/21 18:30 01/02/21 18:45 Temperature Pulse Rate 114 H 116 H 114 H Respiratory Rate 15 14 13 Blood Pressure 86/58 L Pulse Oximetry 100 99 100 01/02/21 19:00 01/02/21 19:15 01/02/21 19:30 Temperature Pulse Rate 116 H 117 H 116 H Respiratory Rate 16 14 15 Blood Pressure 91/59 L 97/62 Pulse Oximetry 96 98 100 01/02/21 19:45 Temperature Pulse Rate 116 H Respiratory Rate 12 Blood Pressure Pulse Oximetry 100 Medical Decision Making Lab Data Result diagrams: 01/03/21 00:30 01/03/21 05:00 Labs: Lab Results 01/02/21 01/02/21 01/02/21 Range/Units 16:45 16:45 16:45 WBC 12.3 H (4.5-11.0) X10^3/uL RBC 4.70 (4.0-5.2) X10^6/uL Hgb 15.1 (12.0-16.0) g/dL Hct 49.3 H (36-46) % MCV 104.9 H (80-100) fL MCH 32.0 (26-34) PG MCHC 30.5 (30-36) % RDW 13.4 (11.6-14.8) % Plt Count 475 H (150-400) X10^3/uL Neut % (Auto) 73.9 (50-75) % Lymph % (Auto) 20.1 L (25-40) % [place] % (Auto) 4.3 (3-14) % Eos % (Auto) 0.1 L (2-4) % Baso % (Auto) 1.6 (0-2) % Neut # (Auto) 9100 H (0886-1164) /uL Lymph # (Auto) 2500 (5020-0285) /uL [place] # (Auto) 500 (0-900) /uL Eos # (Auto) 0 (0-450) /uL Baso # (Auto) 200 H (0-100) /uL VBG pH (7.33-7.43) VBG pCO2 (45-50) mmHg VBG pO2 (35-45) mmHg VBG HCO3 (23-28) mmol/L VBG Total CO2 (24-29) mmol/L VBG O2 Saturation (70-75) % VBG Base Excess (0-4) mmol/L Sodium 137 (137-145) mmol/L Potassium 5.5 H (3.4-5.1) mmol/L Chloride 100 (98-107) mmol/L Carbon Dioxide < 5 L* (22-32) mmol/L BUN 31 H (7-17) mg/dL Creatinine 1.01 (0.52-1.04) mg/dL Estimated GFR > 60.0 (>60) mL/min BUN/Creatinine Ratio 30.7 H (6-22) Glucose 827 H* (70-100) mg/dL Hemoglobin A1c (4.0-6.0) % Lactate 2.5 H (0.7-2.1) mmol/L Calcium 10.1 (8.4-10.2) mg/dL Phosphorus (2.5-4.5) mg/dL Magnesium (1.6-2.3) mg/dL Total Bilirubin 0.5 (0.2-1.3) mg/dL AST 27 (14-36) IU/L ALT 33 (<35) IU/L Alkaline Phosphatase 225 H (38-126) U/L Total Protein 7.9 (6.3-8.2) g/dL Albumin 4.7 (3.5-5.0) g/dL Globulin 3.2 (1.7-4.1) g/dL Albumin/Globulin Ratio 1.5 (1.0-2.8) Procalcitonin 0.10 (<0.5) ng/mL Serum , Qual (Negative) Ketones 18.03 H (<0.27) mmol/L SARS-CoV-2 (PCR) (Negative) 01/02/21 01/02/21 01/02/21 Range/Units 17:10 17:25 17:45 WBC (4.5-11.0) X10^3/uL RBC (4.0-5.2) X10^6/uL Hgb (12.0-16.0) g/dL Hct (36-46) % MCV (80-100) fL MCH (26-34) PG MCHC (30-36) % RDW (11.6-14.8) % Plt Count (150-400) X10^3/uL Neut % (Auto) (50-75) % Lymph % (Auto) (25-40) % [place] % (Auto) (3-14) % Eos % (Auto) (2-4) % Baso % (Auto) (0-2) % Neut # (Auto) (6448-4973) /uL Lymph # (Auto) (1684-1601) /uL [place] # (Auto) (0-900) /uL Eos # (Auto) (0-450) /uL Baso # (Auto) (0-100) /uL VBG pH 6.91 L* (7.33-7.43) VBG pCO2 19.0 L (45-50) mmHg VBG pO2 66 H (35-45) mmHg VBG HCO3 4 L (23-28) mmol/L VBG Total CO2 < 5 L (24-29) mmol/L VBG O2 Saturation 76 H (70-75) % VBG Base Excess -29.0 L (0-4) mmol/L Sodium (137-145) mmol/L Potassium (3.4-5.1) mmol/L Chloride (98-107) mmol/L Carbon Dioxide (22-32) mmol/L BUN (7-17) mg/dL Creatinine (0.52-1.04) mg/dL Estimated GFR (>60) mL/min BUN/Creatinine Ratio (6-22) Glucose (70-100) mg/dL Hemoglobin A1c (4.0-6.0) % Lactate (0.7-2.1) mmol/L Calcium (8.4-10.2) mg/dL Phosphorus (2.5-4.5) mg/dL Magnesium (1.6-2.3) mg/dL Total Bilirubin (0.2-1.3) mg/dL AST (14-36) IU/L ALT (<35) IU/L Alkaline Phosphatase (38-126) U/L Total Protein (6.3-8.2) g/dL Albumin (3.5-5.0) g/dL Globulin (1.7-4.1) g/dL Albumin/Globulin Ratio (1.0-2.8) Procalcitonin (<0.5) ng/mL Serum , Qual Negative (Negative) Ketones (<0.27) mmol/L SARS-CoV-2 (PCR) Negative (Negative) 01/02/21 01/02/21 01/02/21 Range/Units 17:45 17:45 17:45 WBC (4.5-11.0) X10^3/uL RBC (4.0-5.2) X10^6/uL Hgb (12.0-16.0) g/dL Hct (36-46) % MCV (80-100) fL MCH (26-34) PG MCHC (30-36) % RDW (11.6-14.8) % Plt Count (150-400) X10^3/uL Neut % (Auto) (50-75) % Lymph % (Auto) (25-40) % [place] % (Auto) (3-14) % Eos % (Auto) (2-4) % Baso % (Auto) (0-2) % Neut # (Auto) (7097-8808) /uL Lymph # (Auto) (4799-0781) /uL [place] # (Auto) (0-900) /uL Eos # (Auto) (0-450) /uL Baso # (Auto) (0-100) /uL VBG pH (7.33-7.43) VBG pCO2 (45-50) mmHg VBG pO2 (35-45) mmHg VBG HCO3 (23-28) mmol/L VBG Total CO2 (24-29) mmol/L VBG O2 Saturation (70-75) % VBG Base Excess (0-4) mmol/L Sodium (137-145) mmol/L Potassium (3.4-5.1) mmol/L Chloride (98-107) mmol/L Carbon Dioxide (22-32) mmol/L BUN (7-17) mg/dL Creatinine (0.52-1.04) mg/dL Estimated GFR (>60) mL/min BUN/Creatinine Ratio (6-22) Glucose (70-100) mg/dL Hemoglobin A1c > 14.0 H (4.0-6.0) % Lactate (0.7-2.1) mmol/L Calcium (8.4-10.2) mg/dL Phosphorus 4.4 (2.5-4.5) mg/dL Magnesium 1.5 L (1.6-2.3) mg/dL Total Bilirubin (0.2-1.3) mg/dL AST (14-36) IU/L ALT (<35) IU/L Alkaline Phosphatase (38-126) U/L Total Protein (6.3-8.2) g/dL Albumin (3.5-5.0) g/dL Globulin (1.7-4.1) g/dL Albumin/Globulin Ratio (1.0-2.8) Procalcitonin (<0.5) ng/mL Serum , Qual (Negative) Ketones (<0.27) mmol/L SARS-CoV-2 (PCR) (Negative) Point of Care Testing Test Results Negative Glucose POC 500 Point of care testing: Point of Care Testing Test Results Negative Glucose POC 500 ECG Data Interpretation: Sinus tachycardia at 128 No acute ischemic changes No peaked T-waves or widening QRS MDM Narrative Medical decision making narrative: 30-year-old type 1 diabetic who presents in severe DKA without obvious signs of infection or etiology. PH is 6.9 with a CO2 less than 5. Cbc is minimally abnormal. Potassium is slightly elevated at 5.5 without associated EKG changes. Lactate is 2.5 and ketones are positive. Procalcitonin is normal and she is not . Alk-phos is slightly elevated which is different from prior presentations however she has no associated specific right upper quadrant abdominal pain. She started on fluids and an insulin drip is ordered. Hospital admission is arranged. Pending are a chest x-ray and urinalysis. She has not yet been able to void. Iv fluids are running P.o. fluids or inappropriate due to acute illness, Patient kept NPO pending workup results. IV fluids given due to: Abnormal labs Abnormal vital signs Abnormal fluid loss Volume depletion Possible sepsis Patient not tolerating p.o. fluids on initial presentation Social work consult is obtained in the emergency department. Claudia has had so many admissions for such similar findings will be helpful if we can see if there is additional resources we might be able to offer to avoid recurrent hospitalizations. Discharge Plan Departure Patient Disposition: Admitted As Inpatient Clinical Impression: Diabetes mellitus type I DKA (diabetic ketoacidoses) Qualifiers: Diabetes mellitus type: type 1 Diabetes mellitus complication detail: without coma Qualified Code(s): E10.10 - Type 1 diabetes mellitus with ketoacidosis without coma Admit Date/Time: 01/02/21 19:51 Admit Provider: Amee Mendez
--- NOTE | 2021-01-02 19:48 | CM.SWNOTE ---
CHAPLAINCY Note CHAPLAINCY receives consult to meet with patient. Patient is 30 y/o female who presents to the ED with concern for DKA and dehydration. CHAPLAINCY attempts to meet with patient and mother during patient's IV blood draw and introduces self, and endorses that CHAPLAINCY will return at another time. CHAPLAINCY attempts to meet with patient two more times but patient is sleeping. Patient was admitted to the ICU on 12/19/20 for similar symptoms, Patient has 17 ED encounters within the last 12 months due to diabetic symptoms. There is concern for patient's significant weight loss. Per ED provider Dr. Drake, patient's mother resides with patient to assist in monitoring and managing diabetes. CHAPLAINCY to f/u with patient and mother and assist in coordinating referral for [facility] [employer] counselor services. Plan: Patient to be admitted to ICU, DCP to f/u with plan of care. RAYMOND Anderson
--- NOTE | 2021-01-02 19:49 | DI.RAD.S_ITS ---
PROCEDURE: XR CHEST 1V INDICATIONS: DKA TECHNIQUE: One view of the chest was acquired. COMPARISON: [facility], CR, XR CHEST 1V, 05/12/2020, 20:56. FINDINGS: Surgical changes and devices: None. Lungs and pleura: Lungs are clear. No pleural effusions or pneumothorax. Mediastinum: Mediastinal contours appear normal. Heart size is normal. Bones and chest wall: No suspicious bony lesions. Overlying soft tissues appear unremarkable. IMPRESSION: No acute cardiopulmonary process demonstrated radiographically. Dictated by: Willard Garcia M.D. on 01/02/2021 at 20:25 Approved by: Willard Garcia M.D. on 01/02/2021 at 20:31
--- NOTE | 2021-01-02 20:27 | PC.NURSE ---
1954 called to give report, they state they will call back 2014 called to give report again in ICU, they again say they will call back
[2021-01-02 20:34] LABS: Lactate 2HR (Lactic Acid Rflx) 1.4 mmol/L (0.7-2.1)
--- NOTE | 2021-01-02 20:35 | P.HP_ITS ---
History of Present Illness History of Present Illness Date Patient Seen: 01/02/21 Time Patient Seen: 20:35 Chief complaint: Really Dehydrated Narrative: Ms. Sarabjit Jimenes is a 30-year-old female patient with a history significant for poorly controlled type 1 diabetes, frequent admissions for DKA, migraines and irregular menstruation?who presents to the ED complaining of DKA.? Presents today complaining that she is dehydrated and is again in DKA.? She states that she has been taking her insulin, she has not been sick recently she has been eating and drinking appropriately she has no complaints of diarrhea, dysuria, flank pain.? There are no skin complaints or findings.? She does not have any neurologic complaints and complains of no headache.? Main complaint is that she is very dry and thirsty. She was recently discharged 12/06 & 12/19/2020 for DKA.? The hospitalist service has consulted with her chemical engineering technologist in the past, and has been advised that her brittle DM issues are psych nature, not diabetic or endocrine driven. Though patient will verbalize on each admit that she is compliant with her insulins, on record A1C: [id number] have all been >14%.? She reports complaints of abdominal pain with nausea without vomiting.? She denies complaints of constipation or diarrhea. She reports having no menstrual periods for over a year. Patient verbalized that overall felt very poor with chills and body aches, without fever. She denies any vaginal discharge or pruritus.? Patient denies any recent precipitating factor such as recent illness injury or trauma.? Patient reports that she is compliant with her insulin, continued poor appetite and weight loss.? Patient's weight on 05/12/2020 was 49.89 kg, 10/18/2020 43 kg, 12/19/2020 38.8 kg, weight today 40kg. Patient denies alcohol intake or recreational substances.? Patient denies chest pain or shortness of breath. Patient is moderately ill appearing, .? Patient has had 3 ED only visits, and 7 hospital admissions to date. Patient admitted today for DKA Patient's vitals upon admit temp 97.3?, BP 92/55, HR 114, RR 15, O2 saturation 100% on room air. Patient demonstrates metabolic acidosis VBG use: PH 6.91, pCO2 19, PO2 66, HC03 4, TCO2< 5, O2 saturation 76%, base excess -29. Patient has a a E elevated white count of 12.3, HCT 49.3, platelets 475, MCV 104.9, neut# 9100, Baso# 200, potassium 5.5, HC03 <5, BUN 31, glucose 827, gap 33, sofa score: 2, alk-phos 225, lactate 2.5, procalcitonin, within normal limits and serum ketones 10.37. Patient is admitted for DKA with hyperglycemia. Patient History Medical History DKA (diabetic ketoacidoses) History of pyelonephritis Irregular menstrual cycle Migraine headache Nephrolithiasis Type 1 diabetes mellitus Surgical History History of ureter stent Hx of cataract surgery Hx of local excision of skin lesion Status post laser lithotripsy of ureteral calculus [place] teeth extracted Family & Social History Family History Father In good health Mother Cardiac disease Social History: household members family Safety & Behavioral: Feels Safe in Current Yes Environment Been Physically Hurt or No Threatened By a Person Tobacco & Substance use: Smoking Status Never smoker alcohol intake never alcohol intake frequency holiday/special occasion Substance Use Type does not use Meds Home Medications and Allergies Home Medications Medication Instructions Recorded Confirmed Type glucose 4 gram chewable tablet 4 gram PO Q15M PRN #30 tab 12/12/18 12/19/20 Rx glucagon (human recombinant) 1 mg 1 mg SUBCUT DIRECTED 02/16/19 12/19/20 History solution for injection (Glucagon Emergency Kit) insulin degludec 200 unit/mL (3 53 unit SUBCUT 1100 11/21/19 12/19/20 History mL) subcutaneous pen insulin aspart U-100 100 unit/mL 10 unit SUBCUT AC 05/20/20 12/19/20 History (3 mL) subcutaneous pen (Novolog Flexpen U-100 Insulin aspart) diphenhydramine HCl 50 mg capsule 50 mg PO BEDTIME PRN 09/29/20 12/19/20 History Allergies Allergy/AdvReac Type Severity Reaction Status Date / Time abdalla [ABDALLA] Allergy Intermediate Hives, Verified 01/02/21 17:05 pruritus iodine [IODINE] Allergy Intermediate rash, itchy Verified 01/02/21 17:05 morphine Allergy Intermediate Difficulty Verified 01/02/21 17:05 Breathing shellfish derived Allergy Intermediate rash Verified 01/02/21 17:05 [SHELLFISH DERIVED] adhesive [ADHESIVE] Allergy Unknown tape Verified 01/02/21 17:05 latex [LATEX] Allergy Unknown Hives Verified 01/02/21 17:05 Review of Systems Review of Systems Narrative: All 12 point systems reviewed with the patient and are negative except otherwise documented. Exam Vital Signs (past 8 hours): - 01/02/21 16:30 01/02/21 17:05 01/02/21 17:15 Temperature 96.3 F L Pulse Rate 136 H 128 H 128 H Respiratory Rate 26 H 23 23 Blood Pressure 107/68 Pulse Oximetry 100 100 100 01/02/21 17:30 01/02/21 17:45 01/02/21 18:00 Temperature Pulse Rate 128 H 122 H 116 H Respiratory Rate 23 18 16 Blood Pressure 108/70 92/55 L Pulse Oximetry 99 99 100 01/02/21 18:15 01/02/21 18:30 01/02/21 18:45 Temperature Pulse Rate 114 H 116 H 114 H Respiratory Rate 15 14 13 Blood Pressure 86/58 L Pulse Oximetry 100 99 100 01/02/21 19:00 01/02/21 19:15 01/02/21 19:30 Temperature Pulse Rate 116 H 117 H 116 H Respiratory Rate 16 14 15 Blood Pressure 91/59 L 97/62 Pulse Oximetry 96 98 100 01/02/21 19:45 01/02/21 20:00 01/02/21 20:15 Temperature Pulse Rate 116 H 123 H 122 H Respiratory Rate 12 20 16 Blood Pressure 95/59 L Pulse Oximetry 100 100 99 Oxygen Delivery Method Room Air Narrative Exam Narrative: Gen: Alert, oriented, thin and ill appearing 30 y.o. ? female, states is very uncomfortable HEENT: normocephalic, atraumatic, conjunctiva clear, keeps her eyes closed, oral mucosa pink and moist Neck: supple, full ROM, no JVD, trachea is midline Resp: Lungs CTA, non-labored breathing CV: RRR, no murmur or rubs Abd: soft, non-tender, normoactive BTs Skin: no lesions or rashes, dry and intact Neuro: Alert and oriented X 4 w/no focal deficits. Speech clear and coherent. Extremities: moves all 4 extremities, is ambulatory, negative Namita?s sign Psyche: labile Objective Labs Result Diagrams: 01/03/21 00:30 01/02/21 21:20 Labs: Laboratory Results - last 24 hr 01/02/21 01/02/21 01/02/21 16:45 16:45 16:45 WBC 12.3 H RBC 4.70 Hgb 15.1 Hct 49.3 H MCV 104.9 H MCH 32.0 MCHC 30.5 RDW 13.4 Plt Count 475 H Neut % (Auto) 73.9 Lymph % (Auto) 20.1 L [place] % (Auto) 4.3 Eos % (Auto) 0.1 L Baso % (Auto) 1.6 Neut # (Auto) 9100 H Lymph # (Auto) 2500 [place] # (Auto) 500 Eos # (Auto) 0 Baso # (Auto) 200 H VBG pH VBG pCO2 VBG pO2 VBG HCO3 VBG Total CO2 VBG O2 Saturation VBG Base Excess Sodium 137 Potassium 5.5 H Chloride 100 Carbon Dioxide < 5 L* BUN 31 H Creatinine 1.01 Estimated GFR > 60.0 BUN/Creatinine Ratio 30.7 H Glucose 827 H* Lactate 2.5 H Calcium 10.1 Total Bilirubin 0.5 AST 27 ALT 33 Alkaline Phosphatase 225 H Total Protein 7.9 Albumin 4.7 Globulin 3.2 Albumin/Globulin Ratio 1.5 Procalcitonin 0.10 Serum , Qual Ketones 18.03 H SARS-CoV-2 (PCR) 01/02/21 01/02/21 01/02/21 17:10 17:25 17:45 WBC RBC Hgb Hct MCV MCH MCHC RDW Plt Count Neut % (Auto) Lymph % (Auto) [place] % (Auto) Eos % (Auto) Baso % (Auto) Neut # (Auto) Lymph # (Auto) [place] # (Auto) Eos # (Auto) Baso # (Auto) VBG pH 6.91 L* VBG pCO2 19.0 L VBG pO2 66 H VBG HCO3 4 L VBG Total CO2 < 5 L VBG O2 Saturation 76 H VBG Base Excess -29.0 L Sodium Potassium Chloride Carbon Dioxide BUN Creatinine Estimated GFR BUN/Creatinine Ratio Glucose Lactate Calcium Total Bilirubin AST ALT Alkaline Phosphatase Total Protein Albumin Globulin Albumin/Globulin Ratio Procalcitonin Serum , Qual Negative Ketones SARS-CoV-2 (PCR) Negative Assessment & Plan Assessment & Plan narrative: Ms. Sarabjit Jimenes is a 29-year-old female patient with a history significant for poorly controlled type 1 diabetes, frequent admissions for DKA, migraines and irregular menstruation? who presents to the ER complaining of DKA. She was recently discharged 12/06 & for DKA.? The hospitalist service has consulted with her chemical engineering technologist in the past, and has been advised that her brittle DM issues are psych nature, not diabetic or endocrine driven. Though patient will verbalize on each admit that she is compliant with her insulins, on record A1C: 2019-current have all been >14%. Patient has had 3 ED only visits, and 7 hospital admissions to date this year. Patient admitted for DKA 1. Acute diabetic ketoacidosis, with hyperglycemia,? in uncontrolled diabetes mellitus type 1 insulin-dependent, unstable, acute on chronic, present on admission -last Hemoglobin A1c >14% was sustained since 03/04/2020 has been elevated at greater than 14 % since June of 2018 indicative of poor glycemic control.? The patient is followed at [facility] resident endocrinology clinic. -temp 97.3?, BP 92/55, HR 114, RR 15, O2 saturation 100% on room air. VBG use: PH 6.91, pCO2 19, PO2 66, HC03 4, TCO2< 5, O2 saturation 76%, base excess -29. WBC 12.3, HCT 49.3, platelets 475, MCV 104.9, neut# 9100, Baso# 200, potassium 5.5, HC03 <5, BUN 31, glucose 827, gap 33, sofa score: 2, alk-phos 225, lactate 2.5, procalcitonin, within normal limits and serum ketones 10.37. -patient takes Tresiba 50 mg Pm., and 7 units of prandial insulin. ?-blood glucose in ED 827 upon admit , A1c >14%, ketones 18.03. Mag & phos ordered -Tele ICU participated in patient's admit. Ordered that pt have a diet: fluids progress as tolerated to Carb while on the drip.? -Lantus 20units loading dose early on drip to help closing of the klever, and not require bridging towards the end of the drip. ? -?DKA/insulin drip protocol: LR @100, Once BS 200-150 ,change to D5LR @150cc/HR -Stop drip Once anion gap is closed (GAP <12) -Once pt off drip-restart Lantus 30nits BID in substitutin for patients Tresiba Insulin -Will check electrolytes including BMP, magnesium every 4 hours.? Strict input and output monitoring Q shift, blood sugar checks Q 1-2 hours per potocol, monitor for potassium, potassium less than 3.3, hold insulin and replace with K rider replacement. Check mag & phos Q12Hr? Will continue to monitor blood sugars a.c. and HS once off drip (BS 150-200, use sliding med. dose).? Daily weight check, neuro check x1 and as needed, monitor for fluid overload. -please avoid Dilaudid for pain management in this patient -U/A & CXR ordered to r/o infection i ? 2. Gastroparesis, secondary to uncontrolled diabetes chronic, stable, not present on admission. - ordered Reglan 10 mg IV q.6 as needed for nausea. 3. Neurogenic bladder secondary to autonomic nerve dysfunction secondary to uncontrolled diabetes, stable, chronic, not present on admission -patient reports no burning, strong urine smell or hematuria in the setting of neurogenic bladder. -urinalysis negative. 4. Malnutrition, as evidence by BMI of 16.2, acute on chronic, present on admission, secondary to patient's noncompliance in regards to type 1 diabetes insulin management -Patient's weight on 05/12/2020 was 49.89 kg, 10/18/2020 43 kg, 12/19/20 38.8 kg, Today 40kg. -dietary consult ordered regarding nutritional supplement ? VTE/DVT prophylaxis:? SCDs, heparin 5000 units b.i.d. Code status:? FULL CODE Surrogate decision maker: nina Gonzales. COVID-19 status: Negative Disposition:? Estimated length of stay greater than 2 midnights I have utilized all available immediate resources to obtain, update, or review the patient's current medications. I confirmed that the patient's advanced care plan is present, Code status is documented and/or surrogate decision maker is listed in the patient's medical record. Time Spent With Patient Critical Care time: I spent a total of [] minutes of critical care time on this patient's care today; this time is exclusive of procedural time.
[2021-01-02 20:56] LABS: Magnesium 1.5 mg/dL (1.6-2.3); Phosphorous 4.4 mg/dL (2.5-4.5)
[2021-01-02 20:58] LABS: Hemoglobin A1C% w Est Avg Glu > 14.0 % (4.0-6.0)
--- NOTE | 2021-01-02 21:20 | PM.CN.EICU ---
History of Present Illness Consult details Chief complaint: Really Dehydrated :: This patient was seen via real time interactive two-way audiovisual telecommunication. Narrative: 30 yo w poorly controlled DM1 (all HbA1C evels in 2020 > 14%) amd repeated admissions for DKA, presents gonsalez eval of DKA as she states she is dehydrated. Labs c/w DKA. Per report, states she is taking her insulin. [facility] Medical History DKA (diabetic ketoacidoses) History of pyelonephritis Irregular menstrual cycle Migraine headache Nephrolithiasis Type 1 diabetes mellitus Surgical History History of ureter stent Hx of cataract surgery Hx of local excision of skin lesion Status post laser lithotripsy of ureteral calculus [place] teeth extracted Family History Father In good health Mother Cardiac disease Social History details: Engaged household members: family Smoking Status: Never smoker alcohol intake: never Current Medications Current Medications Medications: Home Medications glucose 4 gram chewable tablet 4 gram PO Q15M PRN #30 tab 12/12/18 [Rx Confirmed 12/19/20] glucagon (human recombinant) 1 mg solution for injection (Glucagon Emergency Kit) 1 mg SUBCUT DIRECTED 02/16/19 [History Confirmed 12/19/20] insulin degludec 200 unit/mL (3 mL) subcutaneous pen 53 unit SUBCUT 1100 11/21/19 [History Confirmed 12/19/20] insulin aspart U-100 100 unit/mL (3 mL) subcutaneous pen (Novolog Flexpen U-100 Insulin aspart) 10 unit SUBCUT AC 05/20/20 [History Confirmed 12/19/20] diphenhydramine HCl 50 mg capsule 50 mg PO BEDTIME PRN 09/29/20 [History Confirmed 12/19/20] Exam Vital Signs (past 8 hours): - 01/02/21 16:30 01/02/21 17:05 01/02/21 17:15 Temperature 96.3 F L Pulse Rate 136 H 128 H 128 H Respiratory Rate 26 H 23 23 Blood Pressure 107/68 Pulse Oximetry 100 100 100 01/02/21 17:30 01/02/21 17:45 01/02/21 18:00 Temperature Pulse Rate 128 H 122 H 116 H Respiratory Rate 23 18 16 Blood Pressure 108/70 92/55 L Pulse Oximetry 99 99 100 01/02/21 18:15 01/02/21 18:30 01/02/21 18:45 Temperature Pulse Rate 114 H 116 H 114 H Respiratory Rate 15 14 13 Blood Pressure 86/58 L Pulse Oximetry 100 99 100 01/02/21 19:00 01/02/21 19:15 01/02/21 19:30 Temperature Pulse Rate 116 H 117 H 116 H Respiratory Rate 16 14 15 Blood Pressure 91/59 L 97/62 Pulse Oximetry 96 98 100 01/02/21 19:45 01/02/21 20:00 01/02/21 20:15 Temperature Pulse Rate 116 H 123 H 122 H Respiratory Rate 12 20 16 Blood Pressure 95/59 L Pulse Oximetry 100 100 99 Oxygen Delivery Method Room Air Objective Labs Result Diagrams: 01/02/21 16:45 01/02/21 16:45 Labs: Laboratory Results - last 24 hr 01/02/21 01/02/21 01/02/21 16:45 16:45 16:45 WBC 12.3 H RBC 4.70 Hgb 15.1 Hct 49.3 H MCV 104.9 H MCH 32.0 MCHC 30.5 RDW 13.4 Plt Count 475 H Neut % (Auto) 73.9 Lymph % (Auto) 20.1 L [place] % (Auto) 4.3 Eos % (Auto) 0.1 L Baso % (Auto) 1.6 Neut # (Auto) 9100 H Lymph # (Auto) 2500 [place] # (Auto) 500 Eos # (Auto) 0 Baso # (Auto) 200 H VBG pH VBG pCO2 VBG pO2 VBG HCO3 VBG Total CO2 VBG O2 Saturation VBG Base Excess Sodium 137 Potassium 5.5 H Chloride 100 Carbon Dioxide < 5 L* BUN 31 H Creatinine 1.01 Estimated GFR > 60.0 BUN/Creatinine Ratio 30.7 H Glucose 827 H* Hemoglobin A1c Lactate 2.5 H Calcium 10.1 Phosphorus Magnesium Total Bilirubin 0.5 AST 27 ALT 33 Alkaline Phosphatase 225 H Total Protein 7.9 Albumin 4.7 Globulin 3.2 Albumin/Globulin Ratio 1.5 Procalcitonin 0.10 Serum , Qual Ketones 18.03 H SARS-CoV-2 (PCR) 01/02/21 01/02/21 01/02/21 17:10 17:25 17:45 WBC RBC Hgb Hct MCV MCH MCHC RDW Plt Count Neut % (Auto) Lymph % (Auto) [place] % (Auto) Eos % (Auto) Baso % (Auto) Neut # (Auto) Lymph # (Auto) [place] # (Auto) Eos # (Auto) Baso # (Auto) VBG pH 6.91 L* VBG pCO2 19.0 L VBG pO2 66 H VBG HCO3 4 L VBG Total CO2 < 5 L VBG O2 Saturation 76 H VBG Base Excess -29.0 L Sodium Potassium Chloride Carbon Dioxide BUN Creatinine Estimated GFR BUN/Creatinine Ratio Glucose Hemoglobin A1c Lactate Calcium Phosphorus Magnesium Total Bilirubin AST ALT Alkaline Phosphatase Total Protein Albumin Globulin Albumin/Globulin Ratio Procalcitonin Serum , Qual Negative Ketones SARS-CoV-2 (PCR) Negative 01/02/21 01/02/21 01/02/21 17:45 17:45 17:45 WBC RBC Hgb Hct MCV MCH MCHC RDW Plt Count Neut % (Auto) Lymph % (Auto) [place] % (Auto) Eos % (Auto) Baso % (Auto) Neut # (Auto) Lymph # (Auto) [place] # (Auto) Eos # (Auto) Baso # (Auto) VBG pH VBG pCO2 VBG pO2 VBG HCO3 VBG Total CO2 VBG O2 Saturation VBG Base Excess Sodium Potassium Chloride Carbon Dioxide BUN Creatinine Estimated GFR BUN/Creatinine Ratio Glucose Hemoglobin A1c > 14.0 H Lactate Calcium Phosphorus 4.4 Magnesium 1.5 L Total Bilirubin AST ALT Alkaline Phosphatase Total Protein Albumin Globulin Albumin/Globulin Ratio Procalcitonin Serum , Qual Ketones SARS-CoV-2 (PCR) 01/02/21 20:09 WBC RBC Hgb Hct MCV MCH MCHC RDW Plt Count Neut % (Auto) Lymph % (Auto) [place] % (Auto) Eos % (Auto) Baso % (Auto) Neut # (Auto) Lymph # (Auto) [place] # (Auto) Eos # (Auto) Baso # (Auto) VBG pH VBG pCO2 VBG pO2 VBG HCO3 VBG Total CO2 VBG O2 Saturation VBG Base Excess Sodium Potassium Chloride Carbon Dioxide BUN Creatinine Estimated GFR BUN/Creatinine Ratio Glucose Hemoglobin A1c Lactate 1.4 Calcium Phosphorus Magnesium Total Bilirubin AST ALT Alkaline Phosphatase Total Protein Albumin Globulin Albumin/Globulin Ratio Procalcitonin Serum , Qual Ketones SARS-CoV-2 (PCR) Assessment & Plan Assessment and plan (1) DKA (diabetic ketoacidoses): Qualifiers: Diabetes mellitus complication detail: without coma Diabetes mellitus type: type 1 Qualified Code(s): E10.10 - Type 1 diabetes mellitus with ketoacidosis without coma Status: Acute Plan: -Would run insulin drip at 0.1 u/kg/hr -Would give 10 lantus now -Bolus 2-3L LR -Check q1h POC BG and Q4h BMG -D5LR PRN BG < 200 -Stop insulin drip and fluids once AG < 12 Prefer LR vs NS as fluid to prevent hyperchloremic met acidosis which invariably develops in these patient (2) Diabetes mellitus type I: Problem details: Will resume usual insulin once she is no longer in DKA Qualifiers: Diabetes mellitus complication status: with ketoacidosis Status: Acute Plan: re-address insulin compliance and that she has a limited life span due to her poorly controlled DM COVID-19 COVID-19 status: Negative Result date/Date tested (Pos, Neg/Pending): 01/02/21 Time Spent With Patient Critical Care time: I spent a total of 35 minutes of critical care time on this patient's care today; this time is exclusive of procedural time.
--- NOTE | 2021-01-02 21:36 | PC.NURSE ---
2054 Insulin continued upon transfer to ICU
[2021-01-02 21:43] LABS: BUN Creatinine Ratio 32.1 (6-22); Blood Urea Nitrogen 34 mg/dL (7-17); Calcium 8.8 mg/dL (8.4-10.2); Chloride 107 mmol/L (98-107); Estimated Glomerular Filt Rate > 60.0 mL/min (>60); HEMOLYSIS < 15 (0-50); Sodium 140 mmol/L (137-145)
[2021-01-02 21:53] LABS: Potassium 5.6 mmol/L (3.4-5.1)
[2021-01-02 21:55] LABS: Carbon Dioxide < 5 mmol/L (22-32)
[2021-01-02 21:56] LABS: Glucose 798 mg/dL (70-100)
[2021-01-03] VITALS (11 sets, daily range): BP systolic 81–97; BP diastolic 46–67; PULSE 100–120; RESP 10–17; TEMP 36.6–37.3; O2SAT 95–100
[2021-01-03] MEDS: LACTATED RINGERS 1,000 ML 125 ML IV (00:07)
[2021-01-03] MEDS: INSULIN GLARGINE 100 UNIT/ML 3ML PEN 20 UNIT SUBCUT (00:08)
[2021-01-03] MEDS: KETOROLAC 30 MG/ML VIAL IV (00:44)
[2021-01-03 00:50] LABS: Add Manual Diff / Slide Review NO; Basophils Absolute Auto 300 /uL (0-100); Basophils Percent Auto 1.2 % (0-2); Eosinophils Absolute Auto 0 /uL (0-450); Hematocrit 38.8 % (36-46); Hemoglobin 12.7 g/dL (12.0-16.0); Lymphocytes Absolute Auto 2700 /uL (1100-4500); Lymphocytes Percent Auto 12.4 % (25-40); Mean Corpuscular HGB Conc 32.6 % (30-36); Mean Corpuscular Hemoglobin 31.8 PG (26-34); Mean Corpuscular Volume 97.5 fL (80-100); Monocytes Absolute Auto 1600 /uL (0-900); Monocytes Percent Auto 7.3 % (3-14); Neutrophils Absolute Auto 17500 /uL (1500-7000); Neutrophils Percent Auto 79.1 % (50-75); Platelet Count 407 X10^3/uL (150-400); Red Blood Cell Count 3.98 X10^6/uL (4.0-5.2); Red Cell Distribution Width 12.7 % (11.6-14.8); White Blood Cell Count 22.1 X10^3/uL (4.5-11.0)
[2021-01-03 00:58] LABS: Ketones (Beta-Hydroxybutyrate) 10.37 mmol/L (<0.27)
[2021-01-03 01:13] LABS: INR 0.9 (0.9-1.3); Prothrombin Time 9.7 SECONDS (10.1-12.7)
[2021-01-03] MEDS: LACTATED RINGERS 1,000 ML 1000 ML IV (01:13)
[2021-01-03 01:16] LABS: PTT Partial Thromboplastin Tim 28 SECONDS (26.4-36.2)
[2021-01-03 02:34] LABS: BUN Creatinine Ratio 38.5 (6-22); Blood Urea Nitrogen 35 mg/dL (7-17); Calcium 9.4 mg/dL (8.4-10.2); Chloride 112 mmol/L (98-107); Estimated Glomerular Filt Rate > 60.0 mL/min (>60); Glucose 451 mg/dL (70-100); HEMOLYSIS < 15 (0-50); Potassium 4.2 mmol/L (3.4-5.1); Sodium 145 mmol/L (137-145)
[2021-01-03 02:38] LABS: Carbon Dioxide 6 mmol/L (22-32)
[2021-01-03] MEDS: HYDROCODONE/ACET 5/325 TABLET 2 TAB PO ×3 (03:19→20:30)
[2021-01-03] MEDS: MAGNESIUM SULFATE 2 GM/50 ML PIGGYBACK IV (03:19)
[2021-01-03] MEDS: DEXTROSE 5%-LACTATED RINGERS 1,000 ML 150 ML IV (04:09)
[2021-01-03 05:39] LABS: BUN Creatinine Ratio 51.7 (6-22); Blood Urea Nitrogen 31 mg/dL (7-17); Calcium 8.5 mg/dL (8.4-10.2); Carbon Dioxide 16 mmol/L (22-32); Chloride 110 mmol/L (98-107); Estimated Glomerular Filt Rate > 60.0 mL/min (>60); Glucose 297 mg/dL (70-100); HEMOLYSIS < 15 (0-50); Sodium 137 mmol/L (137-145)
[2021-01-03 05:40] LABS: Magnesium 2.3 mg/dL (1.6-2.3); Phosphorous 2.9 mg/dL (2.5-4.5)
[2021-01-03] MEDS: INSULIN LISPRO 100 UNIT/ML 3ML VIAL SUBCUT ×3 (08:55→20:29)
[2021-01-03] MEDS: DEXTROSE 5%-0.45NS W/KCL 20MEQ 1,000 ML 150 MEQ IV (09:45)
[2021-01-03] MEDS: INSULIN GLARGINE 100 UNIT/ML 3ML PEN 30 UNIT SUBCUT (09:46)
[2021-01-03 10:33] LABS: Ketones (Beta-Hydroxybutyrate) 3.55 mmol/L (<0.27)
[2021-01-03 11:07] LABS: Culture Indicated Urine Specimen Cultured; RBC Urine 0-1/HPF (0-5/HPF); Squamous Epithelial Cell Urine 0-1 /HPF (0-5/HPF); WBC Urine 5-10/HPF (0-5/HPF)
[2021-01-03 11:33] LABS: Appearance Urine UA CLEAR; Bilirubin Urine UA 1+ (NEGATIVE); Color Urine UA YELLOW; Glucose Urine UA 2+ g/dL (Negative); Ketones Urine UA 2+ (NEGATIVE); Leukocyte Esterase Urine UA NEGATIVE (NEGATIVE); Nitrite Urine UA NEGATIVE (Negative); Occult Blood Urine UA TRACE-LYSED (Negative); Protein Urine UA 1+ (Negative); Urobilinogen Urine UA 0.2 E.U./dL (0.2)
[2021-01-03 11:37] LABS: Ictotest Urine Negative (Negative)
[2021-01-03] MEDS: INSULIN LISPRO 100 UNIT/ML 3ML VIAL 10 UNIT SUBCUT (12:37)
[2021-01-03 12:51] LABS: BUN Creatinine Ratio 66.7 (6-22); Blood Urea Nitrogen 30 mg/dL (7-17); Calcium 8.6 mg/dL (8.4-10.2); Carbon Dioxide 23 mmol/L (22-32); Chloride 110 mmol/L (98-107); Estimated Glomerular Filt Rate > 60.0 mL/min (>60); Glucose 155 mg/dL (70-100); HEMOLYSIS < 15 (0-50); Potassium 4.1 mmol/L (3.4-5.1); Sodium 137 mmol/L (137-145)
--- NOTE | 2021-01-03 14:45 | DIET.CONS ---
Dietary Consultation Note Admission Date: 01/02/2021 19:51 Assessment: 30 y/o F admitted with DKA. Discharged for DKA twice last month on 12/06 and 12/19/20. Sarabjit is tearful and c/o pain. Staff informed me this is typical when someone enters her room. Her mother was not at bedside during this visit. Sarabjit is not forthcoming about recent events leading up to DKA admission. Denies feeling depressed or sad, denies illness, states I was fine. When discussing current endo care, states she is trying to see one, but it is hard. Unable to elaborate on this, though does endorse plans to see endo in [place]. States she ate a piece of toast and sandwich today. Visible muscle loss as evidenced by mild depressed interosseous, significant prominence of scapula and shoulder. BMI <18 and elevated blood sugars upon admission of 827 mg/dL c +ketones, consistent with malnutrition in T1DM. Last glucose check: 155 mg/dL Ht: 154.94 cm Wt: 40 kg BMI: 16.6 Weight hx: 01/02: 40 kg 01/02: 39 kg 12/19: 38.8 kg 12/19: 38.9 kg 12/05: 41.9 kg 12/05: 43 kg MNA: not recorded Carmelo Score: 20 Diet: 01/02/21 Breakfast Carbohydrate Consistent Diet Diet Modifications: Patient may eat on insulin drip unless vomiting Carbohydrate level: Small (2 CHO) Bedtime snack: Yes Percent of last meal consumed (last 48h) Percent Meal Consumed 75% 01/03/21 14:09 Percent Meal Consumed 1 piece of toast 01/03/21 10:07 Labs: RBC 3.98 X10^6/uL (4.0-5.2) L 01/03/21 00:30 Hgb 12.7 g/dL (12.0-16.0) 01/03/21 00:30 Hct 38.8 % (36-46) 01/03/21 00:30 Creatinine 0.45 mg/dL (0.52-1.04) L 01/03/21 12:30 Hemoglobin A1c > 14.0 % (4.0-6.0) H 01/02/21 17:45 Lactate 1.4 mmol/L (0.7-2.1) 01/02/21 20:09 Nutrition Diagnosis: Severe acute on chronic protein calorie malnutrition r/t DKA status, predicted inadequate intake aeb HgA1c, irregular menses per provider notes, and physical presentations of malnutrition documented above Interventions: 1. Glucerna ONS BID 2. Provided my contact information and plan to discuss OP diabetes education. Pt amenable to hematology nurse educator contacting her after d/c and contacting PCP for referral. Monitoring/Evaluations: weight, glucose, refeeding labs, ONS acceptance
--- NOTE | 2021-01-03 15:48 | P.PN_ITS ---
Subjective Subjective Date Patient Seen: 01/03/21 Interval history: 30-year-old female admitted with recurrent DKA. Patient was on insulin drip overnight. Her anion gap is closed. She is complaining of diffuse pains. She was eating this morning and received her long-acting insulin. Exam Vital Signs (past 8 hours): - 01/03/21 12:30 Temperature 98 F Pulse Rate 100 H Respiratory Rate 13 Blood Pressure 97/60 Pulse Oximetry 100 Oxygen Delivery Method Room Air Oxygen Flow Rate 0 Objective Labs Result Diagrams: 01/03/21 00:30 01/03/21 12:30 Labs: Laboratory Results - last 24 hr 01/02/21 01/02/21 01/02/21 16:45 16:45 16:45 WBC 12.3 H RBC 4.70 Hgb 15.1 Hct 49.3 H MCV 104.9 H MCH 32.0 MCHC 30.5 RDW 13.4 Plt Count 475 H Neut % (Auto) 73.9 Lymph % (Auto) 20.1 L [place] % (Auto) 4.3 Eos % (Auto) 0.1 L Baso % (Auto) 1.6 Neut # (Auto) 9100 H Lymph # (Auto) 2500 [place] # (Auto) 500 Eos # (Auto) 0 Baso # (Auto) 200 H PT INR APTT VBG pH VBG pCO2 VBG pO2 VBG HCO3 VBG Total CO2 VBG O2 Saturation VBG Base Excess Sodium 137 Potassium 5.5 H Chloride 100 Carbon Dioxide < 5 L* BUN 31 H Creatinine 1.01 Estimated GFR > 60.0 BUN/Creatinine Ratio 30.7 H Glucose 827 H* Hemoglobin A1c Lactate 2.5 H Calcium 10.1 Phosphorus Magnesium Total Bilirubin 0.5 AST 27 ALT 33 Alkaline Phosphatase 225 H Total Protein 7.9 Albumin 4.7 Globulin 3.2 Albumin/Globulin Ratio 1.5 Procalcitonin 0.10 Serum , Qual Urine Color Urine Appearance Urine pH Ur Specific [place] Urine Protein Urine Glucose (UA) Urine Ketones Urine Occult Blood Urine Nitrate Urine Bilirubin Ur Bilirubin Confirm Urine Urobilinogen Ur Leukocyte Esterase Urine RBC Urine WBC Ur Squamous Epith Cells Urine Bacteria Ur Culture Indicated? Ketones 18.03 H SARS-CoV-2 (PCR) 01/02/21 01/02/21 01/02/21 17:10 17:25 17:45 WBC RBC Hgb Hct MCV MCH MCHC RDW Plt Count Neut % (Auto) Lymph % (Auto) [place] % (Auto) Eos % (Auto) Baso % (Auto) Neut # (Auto) Lymph # (Auto) [place] # (Auto) Eos # (Auto) Baso # (Auto) PT INR APTT VBG pH 6.91 L* VBG pCO2 19.0 L VBG pO2 66 H VBG HCO3 4 L VBG Total CO2 < 5 L VBG O2 Saturation 76 H VBG Base Excess -29.0 L Sodium Potassium Chloride Carbon Dioxide BUN Creatinine Estimated GFR BUN/Creatinine Ratio Glucose Hemoglobin A1c Lactate Calcium Phosphorus Magnesium Total Bilirubin AST ALT Alkaline Phosphatase Total Protein Albumin Globulin Albumin/Globulin Ratio Procalcitonin Serum , Qual Negative Urine Color Urine Appearance Urine pH Ur Specific [place] Urine Protein Urine Glucose (UA) Urine Ketones Urine Occult Blood Urine Nitrate Urine Bilirubin Ur Bilirubin Confirm Urine Urobilinogen Ur Leukocyte Esterase Urine RBC Urine WBC Ur Squamous Epith Cells Urine Bacteria Ur Culture Indicated? Ketones SARS-CoV-2 (PCR) Negative 01/02/21 01/02/21 01/02/21 17:45 17:45 17:45 WBC RBC Hgb Hct MCV MCH MCHC RDW Plt Count Neut % (Auto) Lymph % (Auto) [place] % (Auto) Eos % (Auto) Baso % (Auto) Neut # (Auto) Lymph # (Auto) [place] # (Auto) Eos # (Auto) Baso # (Auto) PT INR APTT VBG pH VBG pCO2 VBG pO2 VBG HCO3 VBG Total CO2 VBG O2 Saturation VBG Base Excess Sodium Potassium Chloride Carbon Dioxide BUN Creatinine Estimated GFR BUN/Creatinine Ratio Glucose Hemoglobin A1c > 14.0 H Lactate Calcium Phosphorus 4.4 Magnesium 1.5 L Total Bilirubin AST ALT Alkaline Phosphatase Total Protein Albumin Globulin Albumin/Globulin Ratio Procalcitonin Serum , Qual Urine Color Urine Appearance Urine pH Ur Specific [place] Urine Protein Urine Glucose (UA) Urine Ketones Urine Occult Blood Urine Nitrate Urine Bilirubin Ur Bilirubin Confirm Urine Urobilinogen Ur Leukocyte Esterase Urine RBC Urine WBC Ur Squamous Epith Cells Urine Bacteria Ur Culture Indicated? Ketones SARS-CoV-2 (PCR) 01/02/21 01/02/21 01/03/21 20:09 21:20 00:30 WBC 22.1 H D RBC 3.98 L Hgb 12.7 Hct 38.8 MCV 97.5 D MCH 31.8 MCHC 32.6 RDW 12.7 Plt Count 407 H Neut % (Auto) 79.1 H Lymph % (Auto) 12.4 L [place] % (Auto) 7.3 Eos % (Auto) 0.0 L Baso % (Auto) 1.2 Neut # (Auto) 49121 H Lymph # (Auto) 2700 [place] # (Auto) 1600 H Eos # (Auto) 0 Baso # (Auto) 300 H PT INR APTT VBG pH VBG pCO2 VBG pO2 VBG HCO3 VBG Total CO2 VBG O2 Saturation VBG Base Excess Sodium 140 Potassium 5.6 H Chloride 107 Carbon Dioxide < 5 L* BUN 34 H Creatinine 1.06 H Estimated GFR > 60.0 BUN/Creatinine Ratio 32.1 H Glucose 798 H* Hemoglobin A1c Lactate 1.4 Calcium 8.8 Phosphorus Magnesium Total Bilirubin AST ALT Alkaline Phosphatase Total Protein Albumin Globulin Albumin/Globulin Ratio Procalcitonin Serum , Qual Urine Color Urine Appearance Urine pH Ur Specific [place] Urine Protein Urine Glucose (UA) Urine Ketones Urine Occult Blood Urine Nitrate Urine Bilirubin Ur Bilirubin Confirm Urine Urobilinogen Ur Leukocyte Esterase Urine RBC Urine WBC Ur Squamous Epith Cells Urine Bacteria Ur Culture Indicated? Ketones SARS-CoV-2 (PCR) 01/03/21 01/03/21 01/03/21 00:30 00:30 00:30 WBC RBC Hgb Hct MCV MCH MCHC RDW Plt Count Neut % (Auto) Lymph % (Auto) [place] % (Auto) Eos % (Auto) Baso % (Auto) Neut # (Auto) Lymph # (Auto) [place] # (Auto) Eos # (Auto) Baso # (Auto) PT 9.7 L INR 0.9 APTT 28 VBG pH VBG pCO2 VBG pO2 VBG HCO3 VBG Total CO2 VBG O2 Saturation VBG Base Excess Sodium 145 Potassium 4.2 D Chloride 112 H Carbon Dioxide 6 L* BUN 35 H Creatinine 0.91 Estimated GFR > 60.0 BUN/Creatinine Ratio 38.5 H Glucose 451 H D Hemoglobin A1c Lactate Calcium 9.4 Phosphorus Magnesium Total Bilirubin AST ALT Alkaline Phosphatase Total Protein Albumin Globulin Albumin/Globulin Ratio Procalcitonin Serum , Qual Urine Color Urine Appearance Urine pH Ur Specific [place] Urine Protein Urine Glucose (UA) Urine Ketones Urine Occult Blood Urine Nitrate Urine Bilirubin Ur Bilirubin Confirm Urine Urobilinogen Ur Leukocyte Esterase Urine RBC Urine WBC Ur Squamous Epith Cells Urine Bacteria Ur Culture Indicated? Ketones 10.37 H SARS-CoV-2 (PCR) 01/03/21 01/03/21 01/03/21 05:00 05:00 05:00 WBC RBC Hgb Hct MCV MCH MCHC RDW Plt Count Neut % (Auto) Lymph % (Auto) [place] % (Auto) Eos % (Auto) Baso % (Auto) Neut # (Auto) Lymph # (Auto) [place] # (Auto) Eos # (Auto) Baso # (Auto) PT INR APTT VBG pH VBG pCO2 VBG pO2 VBG HCO3 VBG Total CO2 VBG O2 Saturation VBG Base Excess Sodium 137 Potassium 4.0 Chloride 110 H Carbon Dioxide 16 L BUN 31 H Creatinine 0.60 Estimated GFR > 60.0 BUN/Creatinine Ratio 51.7 H Glucose 297 H D Hemoglobin A1c Lactate Calcium 8.5 Phosphorus 2.9 D Magnesium 2.3 Total Bilirubin AST ALT Alkaline Phosphatase Total Protein Albumin Globulin Albumin/Globulin Ratio Procalcitonin Serum , Qual Urine Color Urine Appearance Urine pH Ur Specific [place] Urine Protein Urine Glucose (UA) Urine Ketones Urine Occult Blood Urine Nitrate Urine Bilirubin Ur Bilirubin Confirm Urine Urobilinogen Ur Leukocyte Esterase Urine RBC Urine WBC Ur Squamous Epith Cells Urine Bacteria Ur Culture Indicated? Ketones 3.55 H SARS-CoV-2 (PCR) 01/03/21 01/03/21 01/03/21 10:08 10:08 12:30 WBC RBC Hgb Hct MCV MCH MCHC RDW Plt Count Neut % (Auto) Lymph % (Auto) [place] % (Auto) Eos % (Auto) Baso % (Auto) Neut # (Auto) Lymph # (Auto) [place] # (Auto) Eos # (Auto) Baso # (Auto) PT INR APTT VBG pH VBG pCO2 VBG pO2 VBG HCO3 VBG Total CO2 VBG O2 Saturation VBG Base Excess Sodium 137 Potassium 4.1 Chloride 110 H Carbon Dioxide 23 BUN 30 H Creatinine 0.45 L Estimated GFR > 60.0 BUN/Creatinine Ratio 66.7 H Glucose 155 H D Hemoglobin A1c Lactate Calcium 8.6 Phosphorus Magnesium Total Bilirubin AST ALT Alkaline Phosphatase Total Protein Albumin Globulin Albumin/Globulin Ratio Procalcitonin Serum , Qual Urine Color Yellow Urine Appearance Clear Urine pH 5.0 Ur Specific [place] 1.010 Urine Protein 1+ H Urine Glucose (UA) 2+ H Urine Ketones 2+ H Urine Occult Blood Trace-lysed Urine Nitrate Negative Urine Bilirubin 1+ H Ur Bilirubin Confirm Negative Urine Urobilinogen 0.2 Ur Leukocyte Esterase Negative Urine RBC 0-1/hpf Urine WBC 5-10/hpf H Ur Squamous Epith Cells 0-1 /hpf Urine Bacteria Not Reportable Ur Culture Indicated? Specimen cultured Ketones SARS-CoV-2 (PCR) [facility] Medical History DKA (diabetic ketoacidoses) History of pyelonephritis Irregular menstrual cycle Migraine headache Nephrolithiasis Type 1 diabetes mellitus Surgical History History of ureter stent Hx of cataract surgery Hx of local excision of skin lesion Status post laser lithotripsy of ureteral calculus [place] teeth extracted Family History Father In good health Mother Cardiac disease Social History details: Engaged household members: family Smoking Status: Never smoker alcohol intake: never Assessment & Plan Assessment & Plan narrative: 1. Acute DKA -presented with glucose greater than 800, ketosis, venous pH 6.91, anion gap 33 -A1c greater than 14% same as previous admissions -lytes stable -discontinued insulin drip -changed IV fluid to D5 half-normal saline -diet as tolerated -Lantus 30 units daily -lispro insulin 10 units t.i.d. a.c., medium dose sliding scale -likely home tomorrow if medically stable 2. Acute leukocytosis, likely stress related -urine culture pending, chest x-ray normal 3. Malnutrition, as evidence by BMI of 16.2, acute on chronic, present on admission, secondary to patient's noncompliance in regards to type 1 diabetes insulin management -Patient's weight on 05/12/2020 was 49.89 kg, 10/18/2020 43 kg, 12/19/20 38.8 kg, Today 40kg. -dietary consult ordered regarding nutritional supplement Time Spent With Patient Critical Care time: I spent a total of [] minutes of critical care time on this patient's care today; this time is exclusive of procedural time.
[2021-01-03] MEDS: diphenhydrAMINE 25 MG TABLET PO (16:23)
--- NOTE | 2021-01-03 17:24 | CM.DANOTE ---
DCP/Assessment: Reviewed chart. Patient is a 30yr female with long h/o type I Diabetes. Patient reports that her PCP is at [facility] and is Dr. Limon. Primary payor is 1)[place] 2)Medicaid. Met briefly with patient this afternoon. Patient alert and oriented at time of visit. Patient looks malnourished and unkept. Patient reports that she has been very sick and lost approximately 30-40lbs. Patient currently resides with her fiancee/Reggie in [place]. Patient denies current non-compliance with her diabetes? However, records/labs show otherwise. Patient denies suicidal or homicidal ideation. Patient reports no interest in medication for depression. However, patient was agreeable to the possibility of outpatient counseling. CM team to follow up with patient on 01-04 re: outpatient counseling options. Patient also does admit to having depression with minimal anxiety. P: Anticipate home when stable. CREW SCHEDULER to follow to assist with outpatient MH appointment. 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 No Advance Directives on File No History Provided By Patient,Medical Record Prior Living Arrangements Apartment/Condo Household Members family Type of transporation used prior to Relies on Others admit Independent with ADL's Yes Is patient alert and oriented? Yes Caregiver for Another No Comment PCP is Dr. Limon at [facility] ph# [phone]. Discharge Plan Home Transportation Arrangement Patient reports that her fiance/Reggie or Mother will provide transport home. Review Status In Process Next Review Type Continued Stay Review
[2021-01-04 00:15] VITALS: BP 97/55; PULSE 98; RESP 16; TEMP 36.4; O2SAT 99
[2021-01-04 00:38] VITALS: O2SAT 99
[2021-01-04] MEDS: HYDROCODONE/ACET 5/325 TABLET 2 TAB PO (02:18)
[2021-01-04 04:20] VITALS: BP 115/57; PULSE 103; RESP 14; TEMP 37; O2SAT 98
[2021-01-04 05:26] LABS: Add Manual Diff / Slide Review NO; Basophils Absolute Auto 100 /uL (0-100); Basophils Percent Auto 0.8 % (0-2); Eosinophils Absolute Auto 100 /uL (0-450); Eosinophils Percent Auto 1.1 % (2-4); Hematocrit 31.2 % (36-46); Hemoglobin 10.5 g/dL (12.0-16.0); Lymphocytes Absolute Auto 2100 /uL (1100-4500); Lymphocytes Percent Auto 32.8 % (25-40); Mean Corpuscular HGB Conc 33.7 % (30-36); Mean Corpuscular Hemoglobin 31.8 PG (26-34); Mean Corpuscular Volume 94.2 fL (80-100); Monocytes Absolute Auto 500 /uL (0-900); Monocytes Percent Auto 8.1 % (3-14); Neutrophils Absolute Auto 3800 /uL (1500-7000); Neutrophils Percent Auto 57.2 % (50-75); Platelet Count 265 X10^3/uL (150-400); Red Blood Cell Count 3.31 X10^6/uL (4.0-5.2); Red Cell Distribution Width 12.8 % (11.6-14.8); White Blood Cell Count 6.6 X10^3/uL (4.5-11.0)
[2021-01-04 05:32] LABS: BUN Creatinine Ratio 65.1 (6-22); Blood Urea Nitrogen 28 mg/dL (7-17); Calcium 8.5 mg/dL (8.4-10.2); Carbon Dioxide 23 mmol/L (22-32); Chloride 110 mmol/L (98-107); Estimated Glomerular Filt Rate > 60.0 mL/min (>60); Glucose 255 mg/dL (70-100); HEMOLYSIS < 15 (0-50); Potassium 4.1 mmol/L (3.4-5.1); Sodium 136 mmol/L (137-145)
[2021-01-04 08:00] VITALS: BP 105/62; PULSE 97; RESP 17; TEMP 36.6; O2SAT 99
[2021-01-04] MEDS: INSULIN LISPRO 100 UNIT/ML 3ML VIAL SUBCUT ×2 (08:35→12:53)
[2021-01-04] MEDS: INSULIN LISPRO 100 UNIT/ML 3ML VIAL 10 UNIT SUBCUT ×2 (08:39→12:53)
[2021-01-04] MEDS: INSULIN GLARGINE 100 UNIT/ML 3ML PEN 50 UNIT SUBCUT (08:40)
[2021-01-04] MEDS: SODIUM CHLORIDE 0.9% FLUSH 10 ML IV (08:41)
--- NOTE | 2021-01-04 10:45 | CM.DPC ---
Addendum entered by RAYMOND Roman 01/04/21 14:55: ADD: SW met bedside with pt and mother and provided the Medicaid Transport contact information and explained to pt's mother as well and also provided the list of MH agencies and individual therapists contracted with [facility] and discussed the need to call together to determine which are seeing pts in person and have openings and mother very willing to support pt in following through with these things. BF Original Note: DCP Discharge Home Per MD, pt is medically stable to d/c home today. SW met bedside and explained role and pt confirms that she is agreeable with d/c home today and mother will provide transport after she gets off work and per pt that will likely be around [phone]. SW inquired if pt still agreeable with setting up outpt [facility] appointment for increased support after d/c. Pt states she's agreeable but needs to figure out when transport could be available for her. SW inquired if she has Medicaid transportation benefits and pt states she has never looked into this but agreeable with SW checking. SW called Medicaid Transport and confirmed that pt qualifies for transportation benefits. SW called [facility] to begin process of setting up initial appointment but [facility] not doing in-person sessions at this time and pt states she would prefer in-person counseling and declines setting up appointment with [facility]. Pt confirms she is now living with Raul Paredes in [place] and not her mom in [place] at this time. SW provided pt with the Medicaid transport contact information for future appointments and will begin process of attempting to find in-person therapist. Plan: Patient to d/c home via mother's POV today and pt will have resources and hopefully an in-person therapist appointment set up. RAYMOND Roman
[2021-01-04 12:00] VITALS: BP 99/62; PULSE 107; RESP 19; TEMP 37.2; O2SAT 98
--- NOTE | 2021-01-04 12:56 | DIET.PN1 ---
Dietary Progress Note Assessment: 30 y/o F admitted for DKA. Met with Sarabjit today again. States she is amenable to seeing music educator and endo after discharge. Elevated BG of 255 mg/dL this morning. Phos , K, and Mg WNL. No changes to weight. Endorses drinking ONS BID. Improved PO today. States the etiology of her admission is mostly dehydration, and that she is unclear why this happened. Endorses eating 2-3 meals per day and taking medications prior to admit. Wants to be back on an insulin pump. States she was dx with T1DM at age 6. Ht: 154.94 cm Wt: 40 kg BMI: 16.6 MNA: Carmelo Score: 20 Diet: 01/02/21 Breakfast Carbohydrate Consistent Diet Diet Modifications: Patient may eat on insulin drip unless vomiting Carbohydrate level: Small (2 CHO) Bedtime snack: Yes 01/03/21 Dinner Carbohydrate Consistent Diet Diet Modifications: Vanilla glucerna twice per day Carbohydrate level: Small (2 CHO) Percent of last meal consumed (last 48h) Percent Meal Consumed 75% 01/04/21 09:00 Percent Meal Consumed 40 01/03/21 18:00 Percent Meal Consumed 75% 01/03/21 14:09 Percent Meal Consumed 1 piece of toast 01/03/21 10:07 Labs: RBC 3.31 X10^6/uL (4.0-5.2) L 01/04/21 05:00 Hgb 10.5 g/dL (12.0-16.0) L 01/04/21 05:00 Hct 31.2 % (36-46) L 01/04/21 05:00 Creatinine 0.43 mg/dL (0.52-1.04) L 01/04/21 05:00 Hemoglobin A1c > 14.0 % (4.0-6.0) H 01/02/21 17:45 Lactate 1.4 mmol/L (0.7-2.1) 01/02/21 20:09 Nutrition Diagnosis: Severe acute on chronic protein calorie malnutrition r/t DKA status, predicted inadequate intake aeb HgA1c, irregular menses per provider notes, and physical presentations of malnutrition documented above Interventions: Discussed potential etiologies of dehydration, primarily hyperglycemia. Discussed OP plan of care for T1DM. Monitoring/Evaluations: 1. PO, glucose, refeeding labs, weight. 2. RD, CDCES to follow-up after discharge for DM education/management. Sarabjit agreed with this plan.
[2021-01-04 13:09] LABS: Osmolality, Serum 337 mOsmol/kg (275-295)
--- NOTE | 2021-01-04 13:39 | PC.NURSE ---
1300- Pt to dc home per MD order. Provided dc packet, educational materials, reinforced med regimen and importance of taking insulin and following a diabetic diet. Pt verbalizes understanding. POST OFFICE MANAGER met with pt and pt's mom to provide resources counseling. Pt was given her tresiba pen and all personal belongings. Pt was escorted to exit by HOME CARE PHYSICAL THERAPIST in no distress at 1320.
--- NOTE | 2021-01-04 15:26 | PM.DS.1 ---
History of Present Illness History of Present Illness Chief complaint: Really Dehydrated Narrative: 30 yo w poorly controlled DM1 (all HbA1C evels in 2020 > 14%) amd repeated admissions for DKA, presents gonsalez eval of DKA as she states she is dehydrated. Labs c/w DKA. Per report, states she is taking her insulin. Discharge Providers Provider Date of admission: 01/02/21 19:51 Discharge Date: 01/04/21 Primary care physician: Maria Ines Limon DO Consults: 01/02/21 17:06 [place] [facility] [place] Super[place] Stat Comment: Discharge provider: Pedro Servin MD Summary Hospital Course Discharge Diagnosis: 1. Acute DKA 2. Acute on chronic severe protein calorie malnutrition, BMI 16.2 3. Acute leukocytosis secondary to DKA, resolved Patient has frequent admissions for DKA. Her A1c was over 14. She was treated with insulin drip per DKA protocol with resolution of ketones and anion gap acidosis. Blood sugars are controlled and she is tolerating regular diet back on her subcu insulin prior to discharge. Patient states she was compliant with insulin, monitoring blood sugars and staying well hydrated prior to developing DKA. Status at Discharge Overall status at discharge: patient is back to baseline Time Spent with Patient Time spent: Less than 30 minutes Exam Vital Signs (past 8 hours): - 01/04/21 08:00 01/04/21 12:00 Temperature 97.8 F 98.9 F Pulse Rate 97 H 107 H Respiratory Rate 17 19 Blood Pressure 105/62 99/62 Pulse Oximetry 99 98 Oxygen Delivery Method Room Air Oxygen Flow Rate 0 Narrative Exam Narrative: General: Alert, NAD Neurological: Fully oriented, speech normal affect baseline diminished Objective Labs Result Diagrams: 01/04/21 05:00 01/04/21 05:00 Labs: Laboratory Results - last 24 hr 01/02/21 01/04/21 01/04/21 17:45 05:00 05:00 WBC 6.6 D RBC 3.31 L Hgb 10.5 L Hct 31.2 L MCV 94.2 D MCH 31.8 MCHC 33.7 RDW 12.8 Plt Count 265 Neut % (Auto) 57.2 D Lymph % (Auto) 32.8 D [place] % (Auto) 8.1 Eos % (Auto) 1.1 L Baso % (Auto) 0.8 Neut # (Auto) 3800 Lymph # (Auto) 2100 [place] # (Auto) 500 Eos # (Auto) 100 Baso # (Auto) 100 Sodium 136 L Potassium 4.1 Chloride 110 H Carbon Dioxide 23 BUN 28 H Creatinine 0.43 L Estimated GFR > 60.0 BUN/Creatinine Ratio 65.1 H Glucose 255 H D Serum Osmolality 337 H Calcium 8.5 PFSH Medical History DKA (diabetic ketoacidoses) History of pyelonephritis Irregular menstrual cycle Migraine headache Nephrolithiasis Type 1 diabetes mellitus Surgical History History of ureter stent Hx of cataract surgery Hx of local excision of skin lesion Status post laser lithotripsy of ureteral calculus [place] teeth extracted Family History Father In good health Mother Cardiac disease Social History details: Engaged household members: family Smoking Status: Never smoker alcohol intake: never Discharge Plan Discharge Plan Patient Disposition: Home Discharge orders & Medications Prescriptions: Continued glucose 4 gram tablet,chewable 4 gram PO Q15M PRN (Reason: hypoglycemia) Qty: 30 RF: 0 Glucagon Emergency Kit (human) 1 mg recon soln 1 mg subcut DIRECTED RF: 0 insulin degludec 200 unit/mL (3 mL) Insulin Pen 53 unit SUBCUT 1100 RF: 0 insulin aspart U-100 [Novolog Flexpen U-100 Insulin] 100 unit/mL (3 mL) insulin pen 10 unit SUBCUT AC RF: 0 diphenhydramine HCl 50 mg Capsule 50 mg PO BEDTIME PRN (Reason: Sleep) RF: 0 Medication counseling provided by Pharmacist: Yes Follow up/Referrals: Maria Ines Limon DO [Primary Care Provider] - Discharge Health Status Multidrug resistant organism: No MDRO Diet/Activity/Treatments Diet: Carb-consistent/Diabetic Visit Report/Discharge Packet Instructions: DI for Diabetic Ketoacidosis, What to Eat if You Have Diabetes Discharge Data Primary Care Provider: Maria Ines Limon
--- OUTSIDE RECORDS SUMMARY | 2021-01-06 07:17 | XMS_ITS | Referral Summary ---
:1990 Author Organization Formerly [facility] Address [address] [place] [address] Care Team Providers Name Role Phone DO Ashly Primary Care Provider Reason for Referral Consultation (Routine) - Authorized Specialty Diagnoses / Procedures Referred By Contact Refer red To Contact Endocrinology, Diagnoses Type 1 diabetes mellitus with microalbuminuria ([facility]) Maria Ines Limon DO [facility] Diabetes, Metabolism [address] [phone] Fax: Referral ID Status Reason Start Expiration Visits Visits Date Date Requested Authorized [id number] Authorized Specialty 01/04/2021 12/30/2021 1 1 Services Required Reason for Visit Reason Onset Date Comments Referral 01/04/2021 Encounter Details Date Type Department Care Team Description 01/04/2021 Telephone [facility] Maria Ines Limon DO Referral Division [facility] ic [address] [phone] Allergies Active Allergy Reactions Severity Noted Date Comments Iodine 03/02/2020 Latex Hives 12/21/2016 Latex, Natural Rubber 03/03/2016 Morphine Shortness of breath High 12/21/2016 Shellfish Containing Products 03/03/2016 Shellfish Derived 12/21/2016 documented as of this encounter (statuses as of 01/05/2021) Medications Medication Sig Dispensed Refills Start Date End Date Status blood-glucose meter 0 Active (TRUE METRIX GLUCOSE METER MISC) lancets 31 gauge True Metrix 200 each 11 03/02/2020 Active miscIndications: Lancets: Check 6 Uncontrolled type 1 times a day on diabetes mellitus intensive insulin with hyperglycemia tx, poor control, (CMS/[facility]) risk for hypoglycemia. Dx: E 10.65 hydrOXYzine (ATARAX) Take 1-2 tablets 30 tablet 1 05/23/2020 Active 25 mg (25-50 mg total) tabletIndications: by mouth nightly Primary insomnia as needed for anxiety (insomnia) for up to 10 days lisinopriL (PRINIVIL) Take 1 tablet 30 tablet 11 06/14/2020 Active 2.5 mg tablet (2.5 mg total) by mouth daily Additional Information Patient not taking. Reported on 12/28/2020 blood sugar diagnostic Check 6 times a day 200 strip 11 021 Active (True Metrix Glucose Test on intensive insulin Strip) stripIndications: tx, poor control, Uncontrolled type 1 risk for diabetes mellitus with hypoglycemia. Dx: E hyperglycemia (CMS/HCC) 10.65 pen needle, diabetic (BD For use with pen 200 each 11 08/23/19 21 Active Ultra-Fine Siobhan Pen device up to 6 times Needle) 32 gauge x 5/32 a day. needleIndications: Uncontrolled type 1 diabetes mellitus with hyperglycemia (CMS/HCC) diazePAM (VALIUM) 5 mg Take 1 tablet (5 mg 10 tablet 0 021 Active tabletIndications: total) by mouth every Situational anxiety 12 (twelve) hours as needed for anxiety for up to 7 days Take 30-60 min before planned procedure glucagon 1 mg Inject for emergency 1 each 5 12/28/2020 Active injectionIndications: situation if found Uncontrolled type 1 unconscious, call diabetes mellitus with 911, once awake then hyperglycemia (CMS/HCC) try to give oral treatment. blood-glucose sensor Use with Dexcom 3 each 11 12/28/2020 Active (Dexcom G6 Sensor) transmitter and deviceIndications: rotational moulding operator to check Uncontrolled type 1 blood glucose at diabetes mellitus with least 4 times daily hyperglycemia ([facility]) blood-glucose transmitter Use with rotational moulding operator to 1 each 3 11/2020 Active (Dexcom G6 Transmitter) check blood glucose deviceIndications: at least 4 times Uncontrolled type 1 daily diabetes mellitus with hyperglycemia ([facility]/HCC) blood-glucose Use to check blood 1 each 0 12/28/2020 Active meter,continuous (Dexcom glucose at least 4 G6 Program Therapist) times daily miscIndications: Uncontrolled type 1 diabetes mellitus with hyperglycemia ([facility]/HCC) NovoLOG Flexpen U-100 Inject 7-20 Units 15 mL 3 12/28/2020 Active Insulin 100 unit/mL (3 under the skin 3 mL) insulin pen (three) times a day injectable with meals SLIDING penIndications: scale Uncontrolled type 1 diabetes mellitus with hyperglycemia ([facility]) insulin degludec (Tresiba Inject 55 Units under 27 mL 11 01/28/20 Active FlexTouch U-100) 100 the skin daily 21 unit/mL (3 mL) insulin penIndications: Uncontrolled type 1 diabetes mellitus with hyperglycemia ([facility]) zolpidem (AMBIEN) 5 mg Take 1 tablet (5 mg 20 tablet 0 021 12/29/19 Active tabletIndications: total) by mouth 22 Primary insomnia nightly as needed for sleep documented as of this encounter (statuses as of 01/05/2021) Active Problems Problem Noted Date Situational anxiety 10/03/2020 Last Assessment & Plan: Patient scheduled to undergo bilateral c ataract surgery. Sent the prescription for diazepam to be taken 30 to 60 minutes before procedure. Advised patient that she can also take 1 tablet at night prio r to her scheduled procedure. Discussed possible adverse effects of this medication. She has tolerated this in the past Infected cyst of skin 06/14/2020 Last Assessment & Plan: Concern for possible inflamed vs infecte d cyst of skin of occiput. Patient is afebrile, tachycardic (unchanged from baseline), normotensive. Hx of infected cyst in a different location August 2019 (+MRSA) requiring I&D X2 (10/2019) followed by de bridement with closure of her scalp wound on 01/27/2020. Given patient's hx, I have consulted plastic surgeon, Dr. Jenkins. He recommended antibiotics and follow -up at his clinic for further interventi ons, likely incision and drainage. I have sent a scription for doxycycline and amoxicillin for MRSA and beta- hemolytic strep coverage. This has been discussed with the patient. ED precautions were advised Hospital discharge follow-up 05/23/2020 Last Assessment & Plan: Patient was hospitalized at [facility] from 02/08- 04/04/20 for right foot myositis. She is s/p I&D of right ankle performed on 03/31/20. Myositis of right lower leg 03/31/2020 Overview: Added automatically from request for arie adams [id number] Acute right ankle pain 03/21/2020 Last Assessment & Plan: Patient with ankle pain and no known inc iting trauma. No alarming findings on exam that would be concerning for septic arthritis. Differentials include but are not limited to: sprain, strain, gout, less likely fracture. Ordered an ankle Xray for further evaluation. Sent a referral to podiatry. Recommend ongoing conservative management with ankle boot, ice/heat, pain medications. I have reviewed her PD MP and discussed with her that the pain medication is meant to be for short term use and will not be refilled chronically. She expresses understanding Insomnia 03/21/2020 Last Assessment & Plan: Patient with uncontrolled insomnia. Sent a prescription for ambien. Made it clear that this medication is not meant for long-term chronic therapy of insomnia. Discussed importance of sleep hygiene. Can try melatonin or hydroxyzine also Uncontrolled type 1 diabetes mellitus with hyperglycem ia 03/02/2020 Last Assessment & Plan: Diabetes is poorly controlled. Last Hgb A1c > 14% during recent hospitalization in Nov 2020. Patient expresses concern about increasing basal insulin due to history of hypoglycemia. Fasting blood gl ucose still not within goal. Recommend c ontinuing to titrate up Tresiba to 55 units. Continue NovoLog 7 units with meal as well as sliding scale. Resent Dexcom prescription. Recall that patient has bee n lost to follow-up with endocrinology karina peña but she has been referred to one in [place]. I provided her with the phone number so she can give them a call to schedule her appointment. She plans to eventually resume insulin pump .Reminded to bring in blood sugar diary at next visit. Dietary recommendations for ADA diet. Discussed ways to avoid symptomatic hypo glycemia. Discussed sick day management. Discussed foot care. Reminded to get yearly retinal exam. Diabetes will be reassessed now with rep eat labs that were already previously ordered. Non-recurrent acute serous otitis media of right ear 1 05/02/2019 Last Assessment & Plan: Patient with evidence of otitis media on exam. 7-day course of Augmentin has been prescribed. Advised patient that if she does not see any improvement in symptoms in 2 to 3 days, to let us know. ED precautions advised. Open wnd of scalp 01/01/2020 Renal infection 04/16/2019 Last Assessment & Plan: Patient was found to have pyelonephritis during her stay at [facility] due to a pansensitive Escherichia coli for which she has completed a 14 day course of Augmentin at the end of February. No signs or symptoms of recurrent infect ion at this point. We had a lengthy discussion about her A1c control and the contribution to ongoing infection she will have moving forward. Type 1 diabetes mellitus with renal manifestations 04/2018 Last Assessment & Plan: Currently taking 43 units of Tresiba for basal, 10-12u per meal, and 5-10 units after as correction. She reports that she has had no recent h igh blood sugars over 200. She had a follow-up appointment with endocrinology on 03/03 who had a lengthy discussion with her regarding her diabetic control as her fructosamine level shows a estimated av erage of 31%. I have reiterated the importance of bett er control on her overall health to her today. We discussed the multitude of complications that occur from uncontrolled diabetes, including her proteinuria and re current bladder/vaginal infections, incr eased risk of cardiac disease, delayed healing and chronic infections, and likelihood of needing dialysis in the future. She seems more understanding of her dise ase, but this process is clearly tired her out from dealing with this from such a young age. I will refer her to endocrinology bas ed on her preference, I have discussed extensively that no matter who she sees, she needs to focus on her disease and that no board mixer tender will be able to help her without extensive effort on her par t moving forward. No medication changes at this time; she will see either our office or endocrinology in the next 2 months. Vitamin D deficiency 12/21/2018 Renal calculi 02/11/2014 Type 1 diabetes mellitus 04/22/1995 Abnormal LFTs documented as of this encounter (statuses as of 01/05/2021) Immunizations Name Administration Dates Next Due Influenza, Quadrivalent 01/03/2009 documented as of this encounter Social History Tobacco Use Types Packs/Day Years Used Date Never Smoker Smokeless Tobacco: Never Used Alcohol Use Standard Drinks/Week Comments Not Currently 0 (1 standard drink = 0.6 oz pure alcoho l) Sex Assigned at Date Recorded Not on file Job Start Date Occupation Industry Not on file Not on file Not on file documented as of this encounter Miscellaneous Notes Telephone Encounter - Maria Ines Limon DO - 01/04/2021 2:43 PM PDT Referral signed. Please fax to above number. Thanks elephone Encounter - Sabine Alfonso RN - 01/04/2021 1:54 PM PDT Tried calling Iliana back to just find out a little more about referral request. Did not leave a message, but it is the number for the clinical dieticians at [facility]. elephone Encounter - Shell Garcia - 01/04/2021 1:12 PM PDT Iliana requesting referral for pt to be seen at [facility] due to being admitted several times for DKA, please fax to [phone], Iliana can be reached at [phone] ok to leave detailed message documented in this encounter Plan of Treatment Upcoming Encounters Date Type Specialty Care Team Description 03/20/2021 Office Visit Podiatry Jorge Serna , DPM [address] [place] [address] (Wo rk) 03/29/2021 Office Visit Internal Medicine Sonido Limon DO [address] [place], [place] [phone] (Thomas rk) Scheduled Referrals Name Type Priority Associated Diagnoses Order S chekirstin XTRNL Referral to Outpatient Routine Type 1 diabetes mellitu s Ordered: Diabetic Education Referral with microalbuminuria 01/04/2021 ([facility]) documented as of this encounter Goals Goal Patient Goal Associated Recent Patient-Stated? Author Type Problems Progress To be met in PT [facility], </= 13 visits DAYO [place] Note: 1) Pt to receive >/= 50/80 LEFI for decr eased functional impairment. 2) Patient will be independent with pres cribed home exercise program established by therapy team for support of therapy services. 3) Pt to demonstrate >/= 1.1 m/s gait sp eed without AD, without antalgic gait, for improved tolerance to walking. 4) Pt to demonstrate >/=4+/5 throughout Rt LE strength where lacking in eval for improved tolerance to negotiating stairs 5) Pt to demonstrate >/= 150 deg Rt knee flexion without pain for improved tolerance to house chores. 6) Pt to demonstrate Rt ankle AROM/PROM DF with knee ext to >/= 10 degrees for improved tolerance to squatting. 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 ([facility]) - Primary documented in this encounter Insurance Payer Benefit Plan Subscriber ID Effective Dates Phone Address Type / Group MAKAYLA BENAVIDES [id number] 2020-Presen [phone] [address] [address] MEDICAID BLIND/DISABLE t 5 [place], [facility] [id number] documented as of this encounter Advance Directives Documents on File Type Date Recorded Patient 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
== END 2021-01-04 13:20 | disposition home or self-care (01) | DRG 420 ==
LOC: ED 18:18 → AC 19:52 → ICU 22:21
PROVIDERS: Emergency Medicine; Internal Medicine; Admitting Provider Nurse Practitioner Family; Emergency Provider Emergency Medicine; PCP Student in an Organized Health Care Education/Training Program; Referring Provider Emergency Medicine; Visit Provider Nurse Practitioner Family
DX: E10.10 Type 1 diabetes mellitus with ketoacidosis without coma (principal); E10.43 Type 1 diabetes mellitus with diabetic autonomic (poly)neuropathy; K31.84 Gastroparesis; N31.9 Neuromuscular dysfunction of bladder, unspecified; Z68.1 Body mass index [BMI] 19.9 or less, adult; E43 Unspecified severe protein-calorie malnutrition; Z79.4 Long term (current) use of insulin; Z20.822 Contact with and (suspected) exposure to COVID-19
CPT/HCPCS: 36415; 36592; 71045; 80048; 80053; 81003; 81015; 82009; 82805; 82962; 83036; 83605; 83735; 83930; 84100; 84145; 84703; 85025; 85610; 85730; 87040; 87086; 87635; 93005; 93010; 96361; 96365; 96375; 99284; C9803; J1170; J1815; J1885; J2405; J3475; J7121

== ENCOUNTER 2021-02-05 18:12 | Inpatient (IN) | payer MEDICAID, OTHER, SELFPAY ==
[2021-01-02 21:00] VITALS: BMI 16.6
[2021-02-05] VITALS (12 sets, daily range): BP systolic 96–121; BP diastolic 65–74; PULSE 114–128; RESP 14–22; TEMP 35.9; O2SAT 100; BMI 16.6
--- NOTE | 2021-02-05 19:46 | ED.NAVMDI ---
HPI - Nausea/Vomiting/Diarrhea General Chief complaint: Nausea/Vomiting/Diarrhea Stated complaint: BACK IS TENDER NOT FEELING WELL Time Seen by Provider: 02/05/21 18:16 Source: patient and family Mode of arrival: Wheelchair Limitations: no limitations History of Present Illness HPI Narrative: 31-year-old female with extensive history of diabetes and recurrent visitations for DKA presents with her mother and a chief complaint of generalized body aches, nausea and feeling unwell. She denies any change in her diabetic regimen but states that her sugars have been gradually increasing. She has been vomiting an as generalized crampy abdominal pain. She denies any fever but has been running ?hot Related Data Home Medications Medication Instructions Recorded Confirmed glucagon (human recombinant) 1 mg 1 mg SUBCUT DIRECTED 02/16/19 01/03/21 solution for injection (Glucagon Emergency Kit) insulin degludec 200 unit/mL (3 53 unit SUBCUT 1100 11/21/19 01/03/21 mL) subcutaneous pen insulin aspart U-100 100 unit/mL 10 unit SUBCUT AC 05/20/20 01/03/21 (3 mL) subcutaneous pen (Novolog Flexpen U-100 Insulin aspart) diphenhydramine HCl 50 mg capsule 50 mg PO BEDTIME PRN 09/29/20 01/03/21 Previous Rx's Medication Instructions Recorded glucose 4 gram chewable tablet 4 gram PO Q15M PRN #30 tab 12/12/18 Allergies Allergy/AdvReac Type Severity Reaction Status Date / Time arredondo [ARREDONDO] Allergy Intermediate Hives, Verified 01/02/21 17:05 pruritus iodine [IODINE] Allergy Intermediate rash, itchy Verified 01/02/21 17:05 morphine Allergy Intermediate Difficulty Verified 01/02/21 17:05 Breathing shellfish derived Allergy Intermediate rash Verified 01/02/21 17:05 [SHELLFISH DERIVED] adhesive [ADHESIVE] Allergy Unknown tape Verified 01/02/21 17:05 latex [LATEX] Allergy Unknown Hives Verified 01/02/21 17:05 Review of Systems Review of Systems Narrative: GENERAL: See HPI HEENT: Denies sinus pain, ear pain, sore throat, difficulty swallowing, dizziness. RESPIRATORY: Denies dyspnea, cough, wheezing, hemoptysis, sputum. CARDIOVASCULAR: Denies chest pain, palpitations, orthopnea, edema, GASTROINTESTINAL: Denies nausea, vomiting, abdominal pain, diarrhea, constipation, melena. : Denies dysuria, frequency, incontinence, hematuria, urinary retention. MUSCULOSKELETAL: denies weakness, joint pain, or bony pain SKIN: Denies rash, skin lesions, or other NEUROLOGIC: Denies weakness, headache, numbness, change in speech, confusion, seizures, incoordination. PSYCHIATRIC: No concerning psychosocial issues. 12 point review of systems is negative except for those stated above Patient History Medical History DKA (diabetic ketoacidoses) History of pyelonephritis Irregular menstrual cycle Migraine headache Nephrolithiasis Type 1 diabetes mellitus Surgical History History of ureter stent Hx of cataract surgery Hx of local excision of skin lesion Status post laser lithotripsy of ureteral calculus [place] teeth extracted Family History Father In good health Mother Cardiac disease Social History details: Engaged household members: family Smoking Status: Never smoker alcohol intake: never Smoking Status: Never smoker alcohol intake frequency: holidays/special occasions only Substance Use Type: does not use Exam Narrative Exam Narrative: GENERAL: [31] year old patient appears stated age. Very thin, in moderate distress, complaining of pain and asking for meds HEAD: Atraumatic. Normocephalic. EYES: Pupils equal round and reactive. Extraocular motions intact. No scleral icterus. No injection or drainage. ENT: Dry mucous member Nose without bleeding, purulent drainage. Throat without erythema, tonsillar hypertrophy or exudate. Airway patent. NECK: Trachea midline. Non tender CARDIOVASCULAR: Regular rate and rhythm without murmurs, gallops, or rubs. RESPIRATORY: Clear to auscultation. Breath sounds equal bilaterally. No wheezes, rales, or rhonchi. GASTROINTESTINAL: Abdomen soft, non-tender, nondistended. EXTREMITIES: No edema or joint tenderness. BACK: Nontender without deformity or crepitance. No flank tenderness. NEURO: AOx3. SKIN: No rash or erythema of visible areas Initial Vital Signs Initial Vital Signs: Vital Signs Temperature 96.6 F L 02/05/21 18:56 Pulse Rate 114 H 02/05/21 18:56 Respiratory Rate 22 02/05/21 18:56 Blood Pressure 96/65 02/05/21 18:56 Pulse Oximetry 100 02/05/21 18:56 Course Course Course Narrative: ABG notes acidosis with pH of 7.0. Her anion gap is 34. Blood glucose is quite elevated. There was a delay in getting appropriate venous access despite multiple nurses trying, I made an attempt at a right-sided IJ but was unsuccessful in placement. Pick was eventually contacted and placed a midline. Patient has received IV fluids, Haldol as well as insulin drip. Hospitalist happy to accept Orders Ordered: ED Orders 02/05/21 19:38 COVID19 -Nasal swab/Pre-Proc Stat 02/05/21 19:39 Blood Culture Stat Venous Blood Gas Stat EKG-12 Lead Stat 02/05/21 20:50 Complete Blood Count AUTO DIFF Stat Comprehensive Metabolic Panel Stat Ketones (Beta-Hydroxybutyrate) Stat Lactate (Lactic Acid) Stat Procalcitonin Stat 02/05/21 20:52 Urinalysis and Microscopic Stat 02/05/21 21:15 Arterial Blood Gas Stat Acetaminophen (Acetaminophen 325 Mg Tablet) 650 mg PO Q4HR PRN PRN Reason: Fever/Mild Pain (1-3) Dextrose (Dextrose 50 % In Water 25 Gm/50 Ml Syringe) 25 gm IV PRN PRN PRN Reason: Hypoglycemia Diphenhydramine HCl (Diphenhydramine 25 Mg Tablet) 50 mg PO BEDTIME BLAISE INSULIN DRIP PREMIX (Myxredlin Drip Premix) 100 unit in 100 mls @ 6 mls/hr IV TITRATE BLAISE; Protocol Last Admin: 02/05/21 22:58 Dose: 6 mls/hr, 6 mls/hr Documented by: HARLEEN Cosigned by: ELMO INSULIN DRIP PREMIX (Myxredlin Drip Premix) 100 unit in 100 mls @ 6 mls/hr IV TITRATE BLAISE; Protocol Sodium Chloride (Normal Saline 0.9%) 1,000 mls @ 150 mls/hr IV CONT BLAISE Metoclopramide HCl (Metoclopramide 10 Mg/2 Ml Inj) 10 mg IV Q6HR PRN PRN Reason: Nausea And Vomiting Ondansetron HCl (Ondansetron 4 Mg/2 Ml Inj) 4 mg IV Q4HR PRN PRN Reason: Nausea And Vomiting Discontinued Medications Haloperidol (Haloperidol 5 Mg/Ml Vial) 2 mg IV NOW ONE Stop: 02/05/21 22:33 Last Admin: 02/05/21 22:46 Dose: 2 mg Documented by: ESNODGRASS Sodium Chloride (Normal Saline 0.9%) 1,000 mls @ 1,000 mls/hr IV BOLUS ONE Stop: 02/05/21 20:38 Last Admin: 02/05/21 22:45 Dose: 1,000 mls/hr Documented by: ESNODGRASS Sodium Chloride (Normal Saline 0.9%) 1,000 mls @ 1,000 mls/hr IV BOLUS ONE Stop: 02/06/21 01:58 Vital Signs Vital signs: Vital Signs - 8 hr 02/05/21 18:56 02/05/21 20:02 02/05/21 20:30 Temperature 96.6 F L Pulse Rate 114 H 119 H 118 H Respiratory Rate 22 15 16 Blood Pressure 96/65 Pulse Oximetry 100 100 02/05/21 21:00 02/05/21 21:30 02/05/21 21:41 Temperature Pulse Rate 115 H 120 H 126 H Respiratory Rate 19 14 16 Blood Pressure 121/74 Pulse Oximetry 02/05/21 21:42 02/05/21 22:00 02/05/21 22:30 Temperature Pulse Rate 126 H 128 H 128 H Respiratory Rate 16 16 22 Blood Pressure 121/74 Pulse Oximetry 100 02/05/21 22:39 02/05/21 23:00 02/05/21 23:30 Temperature Pulse Rate 125 H 124 H 125 H Respiratory Rate 16 20 19 Blood Pressure 120/74 111/68 116/69 Pulse Oximetry MDM - Nausea/Vomiting/Diarrhea Lab Data Result diagrams: 02/06/21 02:05 02/06/21 01:46 Labs: Lab Results 02/05/21 02/05/21 02/05/21 Range/Units 19:38 20:50 20:50 WBC 10.9 (4.5-11.0) X10^3/uL RBC 4.67 (4.0-5.2) X10^6/uL Hgb 14.8 (12.0-16.0) g/dL Hct 46.8 H (36-46) % MCV 100.4 H (80-100) fL MCH 31.6 (26-34) PG MCHC 31.5 (30-36) % RDW 13.1 (11.6-14.8) % Plt Count 394 (150-400) X10^3/uL Neut % (Auto) 75.0 (50-75) % Lymph % (Auto) 19.5 L (25-40) % [place] % (Auto) 4.7 (3-14) % Eos % (Auto) 0.1 L (2-4) % Baso % (Auto) 0.7 (0-2) % Neut # (Auto) 8200 H (7569-1043) /uL Lymph # (Auto) 2100 (2606-0306) /uL [place] # (Auto) 500 (0-900) /uL Eos # (Auto) 0 (0-450) /uL Baso # (Auto) 100 (0-100) /uL ABG pH (7.35-7.45) ABG pCO2 (35-45) mmHg ABG pO2 (80-100) mmHg ABG HCO3 (22-26) mmol/L ABG Total CO2 (21-31) mmol/L ABG O2 Saturation (95-100) % ABG Base Excess (-2-2) mmol/L FiO2 Sodium 133 L (137-145) mmol/L Potassium 5.4 H (3.4-5.1) mmol/L Chloride 94 L (98-107) mmol/L Carbon Dioxide < 5 L* (22-32) mmol/L BUN 22 H (7-17) mg/dL Creatinine 0.90 (0.52-1.04) mg/dL Estimated GFR > 60.0 (>60) mL/min BUN/Creatinine Ratio 24.4 H (6-22) Glucose 749 H* (70-100) mg/dL Lactate (0.7-2.1) mmol/L Calcium 9.7 (8.4-10.2) mg/dL Total Bilirubin 0.6 (0.2-1.3) mg/dL AST 30 (14-36) IU/L ALT 26 (<35) IU/L Alkaline Phosphatase 158 H (38-126) U/L Total Protein 7.2 (6.3-8.2) g/dL Albumin 4.4 (3.5-5.0) g/dL Globulin 2.8 (1.7-4.1) g/dL Albumin/Globulin Ratio 1.6 (1.0-2.8) Procalcitonin 0.10 (<0.5) ng/mL Urine Color Urine Appearance Urine pH (4.5-8.0) Ur Specific [place] (1.000-1.035) Urine Protein (Negative) Urine Glucose (UA) (Negative) g/dL Urine Ketones (NEGATIVE) Urine Occult Blood (Negative) Urine Nitrate (Negative) Urine Bilirubin (NEGATIVE) Urine Urobilinogen (0.2) E.U./dL Ur Leukocyte Esterase (NEGATIVE) Urine RBC (0-5/HPF) Urine WBC (0-5/HPF) Ur Squamous Epith Cells (0-5/HPF) Urine Bacteria (None) Urine Yeast (None) Ur Culture Indicated? Ketones 19.80 H (<0.27) mmol/L SARS-CoV-2 (PCR) Negative (Negative) 02/05/21 02/05/21 02/05/21 Range/Units 20:50 20:52 21:15 WBC (4.5-11.0) X10^3/uL RBC (4.0-5.2) X10^6/uL Hgb (12.0-16.0) g/dL Hct (36-46) % MCV (80-100) fL MCH (26-34) PG MCHC (30-36) % RDW (11.6-14.8) % Plt Count (150-400) X10^3/uL Neut % (Auto) (50-75) % Lymph % (Auto) (25-40) % [place] % (Auto) (3-14) % Eos % (Auto) (2-4) % Baso % (Auto) (0-2) % Neut # (Auto) (9173-6553) /uL Lymph # (Auto) (6156-6381) /uL [place] # (Auto) (0-900) /uL Eos # (Auto) (0-450) /uL Baso # (Auto) (0-100) /uL ABG pH 7.08 L* (7.35-7.45) ABG pCO2 12.4 L* (35-45) mmHg ABG pO2 142 H (80-100) mmHg ABG HCO3 4 L (22-26) mmol/L ABG Total CO2 < 5 L (21-31) mmol/L ABG O2 Saturation 98 (95-100) % ABG Base Excess -26.0 L (-2-2) mmol/L FiO2 21 Sodium (137-145) mmol/L Potassium (3.4-5.1) mmol/L Chloride (98-107) mmol/L Carbon Dioxide (22-32) mmol/L BUN (7-17) mg/dL Creatinine (0.52-1.04) mg/dL Estimated GFR (>60) mL/min BUN/Creatinine Ratio (6-22) Glucose (70-100) mg/dL Lactate 2.4 H (0.7-2.1) mmol/L Calcium (8.4-10.2) mg/dL Total Bilirubin (0.2-1.3) mg/dL AST (14-36) IU/L ALT (<35) IU/L Alkaline Phosphatase (38-126) U/L Total Protein (6.3-8.2) g/dL Albumin (3.5-5.0) g/dL Globulin (1.7-4.1) g/dL Albumin/Globulin Ratio (1.0-2.8) Procalcitonin (<0.5) ng/mL Urine Color Yellow Urine Appearance Clear Urine pH 5.0 (4.5-8.0) Ur Specific [place] 1.010 (1.000-1.035) Urine Protein Negative (Negative) Urine Glucose (UA) 2+ H (Negative) g/dL Urine Ketones 2+ H (NEGATIVE) Urine Occult Blood Negative (Negative) Urine Nitrate Negative (Negative) Urine Bilirubin Negative (NEGATIVE) Urine Urobilinogen 0.2 (0.2) E.U./dL Ur Leukocyte Esterase Negative (NEGATIVE) Urine RBC 0-1/hpf (0-5/HPF) Urine WBC 0-1/hpf (0-5/HPF) Ur Squamous Epith Cells 1-5 /hpf (0-5/HPF) Urine Bacteria Occasional (0-1) (None) Urine Yeast 0-1/hpf (None) Ur Culture Indicated? Cult not indicated Ketones (<0.27) mmol/L SARS-CoV-2 (PCR) (Negative) Point of Care Testing Test Results Negative Glucose POC 500 Urine Dip Bedside Urine Glucose 1000 mg/dl Bedside Urine Bilirubin - Negative Bedside Urine Ketone +++ 80 Urine Specific [place] 1.015 Bedside Urine Occult Blood - Negative Bedside Urine pH 5.5 Bedside Urine Protein +/- 15 Bedside Urine Urobilinogen - Negative Bedside Urine Nitrite - Negative Bedside Urine Leukocytes - Negative Esterase Discharge Plan Departure Patient Disposition: Admitted As Inpatient Clinical Impression: Diabetes mellitus type I, DKA (diabetic ketoacidoses) Admit Date/Time: 02/05/21 23:56 Admit Provider: Gale Arita
[2021-02-05 19:59] LABS: COVID19 -Nasal RAPID Negative (Negative)
[2021-02-05 21:07] LABS: Appearance Urine UA CLEAR; Bilirubin Urine UA NEGATIVE (NEGATIVE); Color Urine UA YELLOW; Glucose Urine UA 2+ g/dL (Negative); Ketones Urine UA 2+ (NEGATIVE); Leukocyte Esterase Urine UA NEGATIVE (NEGATIVE); Nitrite Urine UA NEGATIVE (Negative); Occult Blood Urine UA NEGATIVE (Negative); Protein Urine UA NEGATIVE (Negative); Urobilinogen Urine UA 0.2 E.U./dL (0.2)
[2021-02-05 21:17] LABS: Bacteria Urine Occasional (0-1); Culture Indicated Urine Cult Not Indicated; RBC Urine 0-1/HPF (0-5/HPF); Squamous Epithelial Cell Urine 1-5 /HPF (0-5/HPF); WBC Urine 0-1/HPF (0-5/HPF)
[2021-02-05 21:24] LABS: Add Manual Diff / Slide Review NO; Basophils Absolute Auto 100 /uL (0-100); Basophils Percent Auto 0.7 % (0-2); Eosinophils Absolute Auto 0 /uL (0-450); Eosinophils Percent Auto 0.1 % (2-4); Hematocrit 46.8 % (36-46); Hemoglobin 14.8 g/dL (12.0-16.0); Lymphocytes Absolute Auto 2100 /uL (1100-4500); Lymphocytes Percent Auto 19.5 % (25-40); Mean Corpuscular HGB Conc 31.5 % (30-36); Mean Corpuscular Hemoglobin 31.6 PG (26-34); Mean Corpuscular Volume 100.4 fL (80-100); Monocytes Absolute Auto 500 /uL (0-900); Monocytes Percent Auto 4.7 % (3-14); Neutrophils Absolute Auto 8200 /uL (1500-7000); Platelet Count 394 X10^3/uL (150-400); Red Blood Cell Count 4.67 X10^6/uL (4.0-5.2); Red Cell Distribution Width 13.1 % (11.6-14.8); White Blood Cell Count 10.9 X10^3/uL (4.5-11.0)
[2021-02-05 21:30] LABS: Lactate (Lactic Acid) 2.4 mmol/L (0.7-2.1)
[2021-02-05 21:31] LABS: Alanine Aminotransferase 26 IU/L (<35); Albumin 4.4 g/dL (3.5-5.0); Albumin Globulin Ratio 1.6 (1.0-2.8); Alkaline Phosphatase 158 U/L (38-126); Aspartate Aminotransferase 30 IU/L (14-36); BUN Creatinine Ratio 24.4 (6-22); Bilirubin Total 0.6 mg/dL (0.2-1.3); Blood Urea Nitrogen 22 mg/dL (7-17); Calcium 9.7 mg/dL (8.4-10.2); Chloride 94 mmol/L (98-107); Estimated Glomerular Filt Rate > 60.0 mL/min (>60); Globulin 2.8 g/dL (1.7-4.1); Sodium 133 mmol/L (137-145); Total Protein 7.2 g/dL (6.3-8.2)
[2021-02-05 22:11] LABS: Potassium 5.4 mmol/L (3.4-5.1)
[2021-02-05 22:12] LABS: Carbon Dioxide < 5 mmol/L (22-32)
[2021-02-05 22:17] LABS: Glucose 749 mg/dL (70-100)
[2021-02-05 22:26] LABS: HEMOLYSIS 66 (0-50)
[2021-02-05 22:40] LABS: HCO3 ABG 4 mmol/L (22-26); PCO2 ABG 12.4 mmHg (35-45); PO2 ABG 142 mmHg (80-100); TCO2 ABG < 5 mmol/L (21-31); pH ABG 7.08 (7.35-7.45)
[2021-02-05 22:41] LABS: Fractionated Inspired Oxygen 21; Oxygen Saturation ABG 98 % (95-100)
[2021-02-05] MEDS: SODIUM CHLORIDE 0.9% 1,000 ML 1000 ML IV (22:45)
[2021-02-05] MEDS: HALOPERIDOL 5 MG/ML VIAL 2 MG IV (22:46)
[2021-02-05] MEDS: INSULIN DRIP PREMIX 100 UNIT/100 ML PLAST..BAG 6 UNIT IV (22:58)
[2021-02-05 23:19] LABS: Reflexed Lactate in 2 Hours Y
[2021-02-06] VITALS (57 sets, daily range): BP systolic 91–115; BP diastolic 50–74; PULSE 93–132; RESP 2–33; TEMP 36.5–37.2; O2SAT 84–100; BMI 16.6
--- NOTE | 2021-02-06 02:00 | PM.HP.1 ---
History of Present Illness History of Present Illness Chief complaint: BACK IS TENDER NOT FEELING WELL Narrative: The patient is a 31 y/o female with Type 1 Diabetes Mellitus well known to our service admitted to the hospital for recurrent DKA. She reports she started feeling ill 2 days ago. She continue taking her insulin but reports her blood sugar continued to escalate. She states she had a headache, dry mouth, but no nausea or vomiting. She has had no fever, chills, cough, or shortness of breath. Her major complaint is dry mouth. She was last hospitalized for DKA one month ago. She was referred to an [facility] at [facility] and was unable to get an appointment as it sounds like the provider is not taking any new patients. She reports 2 pound weight loss, but looks much thinner than previously. Her face is flushed. Patient was seen in the ED and found to have an elevated white count of 17.2, PH 7.08m PCO2 of 12,4, HCO3 4, base excess of -26, Her CO2 was less than 5mmol/l. She had a glucose of 749 on admission, now blood sugar is 411 after several hours of insulin infusion. She received 1 liter of NS, had a PICC line placed and is now admitted for inpatient treatment of DKA. She reports no menses for 2 years. She attests that she is taking her insulin, however her AIC of 14 and multiple hospitalizations for DKA imply otherwise. She has glucose and ketones in her urine. She is admitted for treatment of DKA. She remains unvaccinated on the advice of her PCP given her poorly controlled diabetes. Patient History Medical History DKA (diabetic ketoacidoses) History of pyelonephritis Irregular menstrual cycle Migraine headache Nephrolithiasis Type 1 diabetes mellitus Surgical History History of ureter stent Hx of cataract surgery Hx of local excision of skin lesion Status post laser lithotripsy of ureteral calculus [place] teeth extracted Family & Social History Family History Father In good health Mother Cardiac disease Social History: household members family Safety & Behavioral: Feels Safe in Current Yes Environment Been Physically Hurt or No Threatened By a Person Tobacco & Substance use: Smoking Status Never smoker alcohol intake never alcohol intake frequency holiday/special occasion Substance Use Type does not use Meds Home Medications and Allergies Home Medications Medication Instructions Recorded Confirmed Type glucose 4 gram chewable tablet 4 gram PO Q15M PRN #30 tab 12/12/18 01/03/21 Rx glucagon (human recombinant) 1 mg 1 mg SUBCUT DIRECTED 02/16/19 01/03/21 History solution for injection (Glucagon Emergency Kit) insulin degludec 200 unit/mL (3 53 unit SUBCUT 1100 11/21/19 01/03/21 History mL) subcutaneous pen insulin aspart U-100 100 unit/mL 10 unit SUBCUT AC 05/20/20 01/03/21 History (3 mL) subcutaneous pen (Novolog Flexpen U-100 Insulin aspart) diphenhydramine HCl 50 mg capsule 50 mg PO BEDTIME PRN 09/29/20 01/03/21 History Allergies Allergy/AdvReac Type Severity Reaction Status Date / Time arredondo [ARREDONDO] Allergy Intermediate Hives, Verified 01/02/21 17:05 pruritus iodine [IODINE] Allergy Intermediate rash, itchy Verified 01/02/21 17:05 morphine Allergy Intermediate Difficulty Verified 01/02/21 17:05 Breathing shellfish derived Allergy Intermediate rash Verified 01/02/21 17:05 [SHELLFISH DERIVED] adhesive [ADHESIVE] Allergy Unknown tape Verified 01/02/21 17:05 latex [LATEX] Allergy Unknown Hives Verified 01/02/21 17:05 Review of Systems Review of Systems Narrative: 10 point review of systems negative except as above Exam Vital Signs (past 8 hours): - 02/05/21 18:56 02/05/21 20:02 02/05/21 20:30 Temperature 96.6 F L Pulse Rate 114 H 119 H 118 H Respiratory Rate 22 15 16 Blood Pressure 96/65 Pulse Oximetry 100 100 02/05/21 21:00 02/05/21 21:30 02/05/21 21:41 Temperature Pulse Rate 115 H 120 H 126 H Respiratory Rate 19 14 16 Blood Pressure 121/74 Pulse Oximetry 02/05/21 21:42 02/05/21 22:00 02/05/21 22:30 Temperature Pulse Rate 126 H 128 H 128 H Respiratory Rate 16 16 22 Blood Pressure 121/74 Pulse Oximetry 100 02/05/21 22:39 02/05/21 23:00 02/05/21 23:30 Temperature Pulse Rate 125 H 124 H 125 H Respiratory Rate 16 20 19 Blood Pressure 120/74 111/68 116/69 Pulse Oximetry 02/06/21 00:00 Temperature Pulse Rate 128 H Respiratory Rate 20 Blood Pressure 107/72 Pulse Oximetry Oxygen Delivery Method Room Air Narrative Exam Narrative: ill appearing emaciated female, face flushed who appears very ill Const Other: puffy face, with erythema around eyes and cheeks HENMT Other: NC/ AT, EOMI, Sclera anicteric, oropharynx with dry mucus membranes Neck Other: supple, no adenopathy or thyromegaly Resp Other: Lungs: decreased breath sounds Cardio Other: CV: Tachycardic, nl Sl S2 GI Other: abd: scaphoid soft/nontender/ non distended Skin Other: no lesions noted, face puffy with erythema of cheeks and eyes Neuro Other: awake and alert, answers questions appropriately Cranial nerves intact, strength symmetric and equal, Sensation in tact, gait not assessed Extrem Other: no edema Psych Other: passive, does not appear to comprehend the gravity of the situation. She is dishonest about her managing her diabetes and appears to have passive approach to managing her diabetes Objective ECG Impression: Sinus tachycardia, no acute ST [place] changes Labs Result Diagrams: 02/05/21 20:50 02/05/21 20:50 Labs: Laboratory Results - last 24 hr 02/05/21 02/05/21 02/05/21 19:38 20:50 20:50 WBC 10.9 RBC 4.67 Hgb 14.8 Hct 46.8 H MCV 100.4 H MCH 31.6 MCHC 31.5 RDW 13.1 Plt Count 394 Neut % (Auto) 75.0 Lymph % (Auto) 19.5 L [place] % (Auto) 4.7 Eos % (Auto) 0.1 L Baso % (Auto) 0.7 Neut # (Auto) 8200 H Lymph # (Auto) 2100 [place] # (Auto) 500 Eos # (Auto) 0 Baso # (Auto) 100 ABG pH ABG pCO2 ABG pO2 ABG HCO3 ABG Total CO2 ABG O2 Saturation ABG Base Excess FiO2 Sodium 133 L Potassium 5.4 H Chloride 94 L Carbon Dioxide < 5 L* BUN 22 H Creatinine 0.90 Estimated GFR > 60.0 BUN/Creatinine Ratio 24.4 H Glucose 749 H* Lactate Calcium 9.7 Total Bilirubin 0.6 AST 30 ALT 26 Alkaline Phosphatase 158 H Total Protein 7.2 Albumin 4.4 Globulin 2.8 Albumin/Globulin Ratio 1.6 Procalcitonin 0.10 Urine Color Urine Appearance Urine pH Ur Specific [place] Urine Protein Urine Glucose (UA) Urine Ketones Urine Occult Blood Urine Nitrate Urine Bilirubin Urine Urobilinogen Ur Leukocyte Esterase Urine RBC Urine WBC Ur Squamous Epith Cells Urine Bacteria Urine Yeast Ur Culture Indicated? Ketones 19.80 H SARS-CoV-2 (PCR) Negative 02/05/21 02/05/21 02/05/21 20:50 20:52 21:15 WBC RBC Hgb Hct MCV MCH MCHC RDW Plt Count Neut % (Auto) Lymph % (Auto) [place] % (Auto) Eos % (Auto) Baso % (Auto) Neut # (Auto) Lymph # (Auto) [place] # (Auto) Eos # (Auto) Baso # (Auto) ABG pH 7.08 L* ABG pCO2 12.4 L* ABG pO2 142 H ABG HCO3 4 L ABG Total CO2 < 5 L ABG O2 Saturation 98 ABG Base Excess -26.0 L FiO2 21 Sodium Potassium Chloride Carbon Dioxide BUN Creatinine Estimated GFR BUN/Creatinine Ratio Glucose Lactate 2.4 H Calcium Total Bilirubin AST ALT Alkaline Phosphatase Total Protein Albumin Globulin Albumin/Globulin Ratio Procalcitonin Urine Color Yellow Urine Appearance Clear Urine pH 5.0 Ur Specific [place] 1.010 Urine Protein Negative Urine Glucose (UA) 2+ H Urine Ketones 2+ H Urine Occult Blood Negative Urine Nitrate Negative Urine Bilirubin Negative Urine Urobilinogen 0.2 Ur Leukocyte Esterase Negative Urine RBC 0-1/hpf Urine WBC 0-1/hpf Ur Squamous Epith Cells 1-5 /hpf Urine Bacteria Occasional (0-1) Urine Yeast 0-1/hpf Ur Culture Indicated? Cult not indicated Ketones SARS-CoV-2 (PCR) Assessment & Plan Assessment & Plan narrative: 31 y/o female with type 1 Diabetes, non compliant with treatment admitted for DKA -She reports 2 days of illness -AIC of 14% speaks to her non compliance -Markedly acidotic and hyperglycemic -agree with starting lantus now -continue insulin drip -continue IV fluids -replace electrolytes -no indication for bicarb at this time -Needs Psych eval -consider social work evaluation for SNF placement to improve glycemic control 2. Gastroparesis -no nausea/vomiting/pain at this time -continue IV hydration, anti emetics, improve glycemic control 3. Neurogenic bladder 4. Severe Protein Calorie Malnutrition- Diabulemia? Consult chief revenue officer and diabetic educatior DVT prophylaxis full code I have utilized all available resouces to obtain, update, and review her current medications. Code Status has been documented Time Spent With Patient Critical Care time: I spent a total of [] minutes of critical care time on this patient's care today; this time is exclusive of procedural time.
[2021-02-06 02:07] LABS: BUN Creatinine Ratio 28.4 (6-22); Blood Urea Nitrogen 23 mg/dL (7-17); Calcium 9.2 mg/dL (8.4-10.2); Chloride 105 mmol/L (98-107); Estimated Glomerular Filt Rate > 60.0 mL/min (>60); Glucose 471 mg/dL (70-100); HEMOLYSIS < 15 (0-50); Lactate 2HR (Lactic Acid Rflx) 1.8 mmol/L (0.7-2.1); Potassium 3.7 mmol/L (3.4-5.1); Sodium 140 mmol/L (137-145)
[2021-02-06 02:10] LABS: Carbon Dioxide < 5 mmol/L (22-32)
[2021-02-06 02:20] LABS: Add Manual Diff / Slide Review NO; Basophils Absolute Auto 100 /uL (0-100); Basophils Percent Auto 0.5 % (0-2); Eosinophils Absolute Auto 0 /uL (0-450); Hemoglobin 13.1 g/dL (12.0-16.0); Lymphocytes Absolute Auto 2600 /uL (1100-4500); Lymphocytes Percent Auto 14.9 % (25-40); Mean Corpuscular HGB Conc 31.9 % (30-36); Mean Corpuscular Hemoglobin 30.6 PG (26-34); Mean Corpuscular Volume 95.8 fL (80-100); Monocytes Absolute Auto 1700 /uL (0-900); Monocytes Percent Auto 10.1 % (3-14); Neutrophils Absolute Auto 12900 /uL (1500-7000); Neutrophils Percent Auto 74.5 % (50-75); Platelet Count 359 X10^3/uL (150-400); Red Blood Cell Count 4.28 X10^6/uL (4.0-5.2); Red Cell Distribution Width 13.3 % (11.6-14.8); White Blood Cell Count 17.2 X10^3/uL (4.5-11.0)
[2021-02-06] MEDS: SODIUM CHLORIDE 0.9% 1,000 ML 1000 ML IV (02:46)
[2021-02-06] MEDS: POTASSIUM CHLORIDE IN WATER 10 MEQ/100 ML PIGGYBACK 100 MEQ IV ×8 (03:17→13:44)
[2021-02-06] MEDS: SODIUM CHLORIDE 0.9% 1,000 ML 150 ML IV (03:55)
--- NOTE | 2021-02-06 03:56 | PM.CN.EICU ---
History of Present Illness Consult details Date Patient Seen: 02/06/21 Chief complaint: BACK IS TENDER NOT FEELING WELL :: This patient was seen via real time interactive two-way audiovisual telecommunication. Narrative: 31 y.o. female w/ PMHx of T1DM who came to ED with malaise and dry mouth; she was found to be in DKA. Initial glucose was 749 with K+ of 5.4 and AG of 34. She is currently on insulin 6 units/hr; receiving her her first KCL rider and 2 liter of 0.9% NaCl. Latest glucose is 411. [facility] Medical History DKA (diabetic ketoacidoses) History of pyelonephritis Irregular menstrual cycle Migraine headache Nephrolithiasis Type 1 diabetes mellitus Surgical History History of ureter stent Hx of cataract surgery Hx of local excision of skin lesion Status post laser lithotripsy of ureteral calculus [place] teeth extracted Family History Father In good health Mother Cardiac disease Social History details: Engaged household members: family Smoking Status: Never smoker alcohol intake: never Current Medications Current Medications Medications: Home Medications glucose 4 gram chewable tablet 4 gram PO Q15M PRN #30 tab 12/12/18 [Rx Confirmed 01/03/21] glucagon (human recombinant) 1 mg solution for injection (Glucagon Emergency Kit) 1 mg SUBCUT DIRECTED 02/16/19 [History Confirmed 01/03/21] insulin degludec 200 unit/mL (3 mL) subcutaneous pen 53 unit SUBCUT 1100 11/21/19 [History Confirmed 01/03/21] insulin aspart U-100 100 unit/mL (3 mL) subcutaneous pen (Novolog Flexpen U-100 Insulin aspart) 10 unit SUBCUT AC 05/20/20 [History Confirmed 01/03/21] diphenhydramine HCl 50 mg capsule 50 mg PO BEDTIME PRN 09/29/20 [History Confirmed 01/03/21] Visit Medications (administered) Generic Name Dose Route Start Last Admin Trade Name Freq PRN Reason Stop Dose Admin INSULIN DRIP PREMIX 100 unit in 100 mls @ 6 mls/hr 02/05/21 22:45 02/06/21 02:40 Myxredlin Drip Premix IV 6 mls/hr TITRATE BLAISE 6 mls/hr Titration Protocol INSULIN DRIP PREMIX 100 unit in 100 mls @ 6 mls/hr 02/06/21 01:00 02/06/21 03:19 Myxredlin Drip Premix IV Not Given TITRATE BLAISE Protocol Sodium Chloride 1,000 mls @ 150 mls/hr 02/06/21 02:30 02/06/21 03:55 Normal Saline 0.9% IV 150 mls/hr CONT BLAISE Administration POTASSIUM CHLORIDE IN WATER 10 meq in 100 mls @ 100 mls/hr 02/06/21 03:00 02/06/21 03:17 Potassium Cl 10 Meq/100 Ml Suzi IV 02/06/21 06:59 100 mls/hr Q1H BLAISE Administration Exam Vital Signs (past 8 hours): - 02/05/21 20:02 02/05/21 20:30 02/05/21 21:00 Pulse Rate 119 H 118 H 115 H Respiratory Rate 15 16 19 Blood Pressure Pulse Oximetry 100 02/05/21 21:30 02/05/21 21:41 02/05/21 21:42 Pulse Rate 120 H 126 H 126 H Respiratory Rate 14 16 16 Blood Pressure 121/74 121/74 Pulse Oximetry 100 02/05/21 22:00 02/05/21 22:30 02/05/21 22:39 Pulse Rate 128 H 128 H 125 H Respiratory Rate 16 22 16 Blood Pressure 120/74 Pulse Oximetry 02/05/21 23:00 02/05/21 23:30 02/06/21 00:00 Pulse Rate 124 H 125 H 128 H Respiratory Rate 20 19 20 Blood Pressure 111/68 116/69 107/72 Pulse Oximetry 02/06/21 00:30 02/06/21 01:00 02/06/21 01:30 Pulse Rate 132 H 126 H 129 H Respiratory Rate 19 18 18 Blood Pressure 100/62 115/74 105/71 Pulse Oximetry 02/06/21 02:00 02/06/21 02:32 02/06/21 02:33 Pulse Rate 125 H 126 H 124 H Respiratory Rate 16 33 H Blood Pressure 107/73 Pulse Oximetry 100 100 02/06/21 02:42 02/06/21 02:43 02/06/21 03:00 Pulse Rate 129 H 118 H Respiratory Rate 17 18 Blood Pressure 108/69 Pulse Oximetry 100 100 02/06/21 03:30 Pulse Rate 120 H Respiratory Rate 14 Blood Pressure Pulse Oximetry 100 Oxygen Delivery Method Room Air Narrative Exam Narrative: ill appearing female who is resting in bed Objective Labs Result Diagrams: 02/06/21 02:05 02/06/21 01:46 Labs: Laboratory Results - last 24 hr 02/05/21 02/05/21 02/05/21 19:38 20:50 20:50 WBC 10.9 RBC 4.67 Hgb 14.8 Hct 46.8 H MCV 100.4 H MCH 31.6 MCHC 31.5 RDW 13.1 Plt Count 394 Neut % (Auto) 75.0 Lymph % (Auto) 19.5 L Centre % (Auto) 4.7 Eos % (Auto) 0.1 L Baso % (Auto) 0.7 Neut # (Auto) 8200 H Lymph # (Auto) 2100 Centre # (Auto) 500 Eos # (Auto) 0 Baso # (Auto) 100 ABG pH ABG pCO2 ABG pO2 ABG HCO3 ABG Total CO2 ABG O2 Saturation ABG Base Excess FiO2 Sodium 133 L Potassium 5.4 H Chloride 94 L Carbon Dioxide < 5 L* BUN 22 H Creatinine 0.90 Estimated GFR > 60.0 BUN/Creatinine Ratio 24.4 H Glucose 749 H* Lactate Calcium 9.7 Total Bilirubin 0.6 AST 30 ALT 26 Alkaline Phosphatase 158 H Total Protein 7.2 Albumin 4.4 Globulin 2.8 Albumin/Globulin Ratio 1.6 Procalcitonin 0.10 Urine Color Urine Appearance Urine pH Ur Specific Chemult Urine Protein Urine Glucose (UA) Urine Ketones Urine Occult Blood Urine Nitrate Urine Bilirubin Urine Urobilinogen Ur Leukocyte Esterase Urine RBC Urine WBC Ur Squamous Epith Cells Urine Bacteria Urine Yeast Ur Culture Indicated? Ketones 19.80 H SARS-CoV-2 (PCR) Negative 02/05/21 02/05/21 02/05/21 20:50 20:52 21:15 WBC RBC Hgb Hct MCV MCH MCHC RDW Plt Count Neut % (Auto) Lymph % (Auto) Centre % (Auto) Eos % (Auto) Baso % (Auto) Neut # (Auto) Lymph # (Auto) Centre # (Auto) Eos # (Auto) Baso # (Auto) ABG pH 7.08 L* ABG pCO2 12.4 L* ABG pO2 142 H ABG HCO3 4 L ABG Total CO2 < 5 L ABG O2 Saturation 98 ABG Base Excess -26.0 L FiO2 21 Sodium Potassium Chloride Carbon Dioxide BUN Creatinine Estimated GFR BUN/Creatinine Ratio Glucose Lactate 2.4 H Calcium Total Bilirubin AST ALT Alkaline Phosphatase Total Protein Albumin Globulin Albumin/Globulin Ratio Procalcitonin Urine Color Yellow Urine Appearance Clear Urine pH 5.0 Ur Specific Chemult 1.010 Urine Protein Negative Urine Glucose (UA) 2+ H Urine Ketones 2+ H Urine Occult Blood Negative Urine Nitrate Negative Urine Bilirubin Negative Urine Urobilinogen 0.2 Ur Leukocyte Esterase Negative Urine RBC 0-1/hpf Urine WBC 0-1/hpf Ur Squamous Epith Cells 1-5 /hpf Urine Bacteria Occasional (0-1) Urine Yeast 0-1/hpf Ur Culture Indicated? Cult not indicated Ketones SARS-CoV-2 (PCR) 02/06/21 02/06/21 02/06/21 01:46 01:46 02:05 WBC 17.2 H D RBC 4.28 Hgb 13.1 Hct 41.0 MCV 95.8 D MCH 30.6 MCHC 31.9 RDW 13.3 Plt Count 359 Neut % (Auto) 74.5 Lymph % (Auto) 14.9 L Centre % (Auto) 10.1 Eos % (Auto) 0.0 L Baso % (Auto) 0.5 Neut # (Auto) 16279 H Lymph # (Auto) 2600 Centre # (Auto) 1700 H Eos # (Auto) 0 Baso # (Auto) 100 ABG pH ABG pCO2 ABG pO2 ABG HCO3 ABG Total CO2 ABG O2 Saturation ABG Base Excess FiO2 Sodium 140 Potassium 3.7 D Chloride 105 Carbon Dioxide < 5 L* BUN 23 H Creatinine 0.81 Estimated GFR > 60.0 BUN/Creatinine Ratio 28.4 H Glucose 471 H D Lactate 1.8 Calcium 9.2 Total Bilirubin AST ALT Alkaline Phosphatase Total Protein Albumin Globulin Albumin/Globulin Ratio Procalcitonin Urine Color Urine Appearance Urine pH Ur Specific Chemult Urine Protein Urine Glucose (UA) Urine Ketones Urine Occult Blood Urine Nitrate Urine Bilirubin Urine Urobilinogen Ur Leukocyte Esterase Urine RBC Urine WBC Ur Squamous Epith Cells Urine Bacteria Urine Yeast Ur Culture Indicated? Ketones SARS-CoV-2 (PCR) Assessment & Plan Assessment and plan (1) DKA (diabetic ketoacidoses): Qualifiers: Diabetes mellitus complication detail: without coma Diabetes mellitus type: type 1 Qualified Code(s): E10.10 - Type 1 diabetes mellitus with ketoacidosis without coma Status: Acute Plan: -Continue crystalloid resuscitation, insulin infusion, serial electrolytes with repletion PRN as per DKA protocol -No evidence of an inciting infection--urinalysis was reviewed and bland Time Spent With Patient Critical Care time: I spent a total of [] minutes of critical care time on this patient's care today; this time is exclusive of procedural time.
--- NOTE | 2021-02-06 06:46 | PC.NURSE ---
Admit/Shift Note-Patient brought to ICU room 228 at 0230, drowsy, cooperative, little tearful at times. Insulin at 6units/hr, has been titrated down to 3.9units by 0600, see flow sheet. 1L NS bolus given, then NS @ 150ml/hr, 40meq K+ riders infusing. ST 110-120, other VSS. Voided 100ml slightly cloudy urine in BSC upon admit, requires SBA. Called Dr Palomares at [phone], message left, he responded via Camera at [phone], updated on patients status, BG, and interventions, patient was sleeping at that time.
[2021-02-06 06:52] LABS: BUN Creatinine Ratio 36.4 (6-22); Blood Urea Nitrogen 20 mg/dL (7-17); Calcium 8.5 mg/dL (8.4-10.2); Carbon Dioxide 12 mmol/L (22-32); Chloride 112 mmol/L (98-107); Estimated Glomerular Filt Rate > 60.0 mL/min (>60); Glucose 190 mg/dL (70-100); HEMOLYSIS < 15 (0-50); Potassium 4.1 mmol/L (3.4-5.1); Sodium 141 mmol/L (137-145)
[2021-02-06] MEDS: HEPARIN 5,000 UNIT/ML VIAL 5000 UNIT SUBCUT (08:18)
[2021-02-06] MEDS: DEXTROSE 10 % IN WATER 1,000 ML 38.8 ML IV (08:19)
--- NOTE | 2021-02-06 09:31 | PM.PN.EICU ---
Subjective Subjective :: This patient was seen via real time interactive two-way audiovisual telecommunication. No acute issues. On insulin infusion per DKA protocol. On NS and D10W w/ electrolytes repletion protocol. Current Medications Current Medications Medications: Home Medications glucose 4 gram chewable tablet 4 gram PO Q15M PRN #30 tab 12/12/18 [Rx Confirmed 02/06/21] glucagon (human recombinant) 1 mg solution for injection (Glucagon Emergency Kit) 1 mg SUBCUT DIRECTED 02/16/19 [History Confirmed 02/06/21] insulin degludec 200 unit/mL (3 mL) subcutaneous pen 53 unit SUBCUT 1100 11/21/19 [History Confirmed 02/06/21] insulin aspart U-100 100 unit/mL (3 mL) subcutaneous pen (Novolog Flexpen U-100 Insulin aspart) 10 unit SUBCUT AC 05/20/20 [History Confirmed 02/06/21] diphenhydramine HCl 50 mg capsule 50 mg PO BEDTIME PRN 09/29/20 [History Confirmed 02/06/21] Visit Medications (administered) Generic Name Dose Route Start Last Admin Trade Name Freq PRN Reason Stop Dose Admin Heparin Sodium (Porcine) 5,000 unit 02/06/21 09:00 02/06/21 08:18 Heparin 5,000 Unit/Ml Vial SUBCUT 5,000 unit BID BLAISE Administration INSULIN DRIP PREMIX 100 unit in 100 mls @ 6 mls/hr 02/05/21 22:45 02/06/21 08:00 Myxredlin Drip Premix IV 1 mls/hr TITRATE BLAISE 1 mls/hr Titration Protocol INSULIN DRIP PREMIX 100 unit in 100 mls @ 6 mls/hr 02/06/21 01:00 02/06/21 03:19 Myxredlin Drip Premix IV Not Given TITRATE BLAISE Protocol Sodium Chloride 1,000 mls @ 150 mls/hr 02/06/21 02:30 02/06/21 03:55 Normal Saline 0.9% IV 150 mls/hr CONT BLAISE Administration Dextrose 1,000 mls @ 38.8 mls/hr 02/06/21 08:15 02/06/21 08:19 D10w IV 38.8 mls/hr CONT BLAISE Administration Objective Labs Result Diagrams: 02/06/21 02:05 02/06/21 06:30 Labs: Laboratory Results - last 24 hr 02/05/21 02/05/21 02/05/21 19:38 20:50 20:50 WBC 10.9 RBC 4.67 Hgb 14.8 Hct 46.8 H MCV 100.4 H MCH 31.6 MCHC 31.5 RDW 13.1 Plt Count 394 Neut % (Auto) 75.0 Lymph % (Auto) 19.5 L [place] % (Auto) 4.7 Eos % (Auto) 0.1 L Baso % (Auto) 0.7 Neut # (Auto) 8200 H Lymph # (Auto) 2100 [place] # (Auto) 500 Eos # (Auto) 0 Baso # (Auto) 100 ABG pH ABG pCO2 ABG pO2 ABG HCO3 ABG Total CO2 ABG O2 Saturation ABG Base Excess FiO2 Sodium 133 L Potassium 5.4 H Chloride 94 L Carbon Dioxide < 5 L* BUN 22 H Creatinine 0.90 Estimated GFR > 60.0 BUN/Creatinine Ratio 24.4 H Glucose 749 H* Lactate Calcium 9.7 Total Bilirubin 0.6 AST 30 ALT 26 Alkaline Phosphatase 158 H Total Protein 7.2 Albumin 4.4 Globulin 2.8 Albumin/Globulin Ratio 1.6 Procalcitonin 0.10 Urine Color Urine Appearance Urine pH Ur Specific [place] Urine Protein Urine Glucose (UA) Urine Ketones Urine Occult Blood Urine Nitrate Urine Bilirubin Urine Urobilinogen Ur Leukocyte Esterase Urine RBC Urine WBC Ur Squamous Epith Cells Urine Bacteria Urine Yeast Ur Culture Indicated? Nasal Screen MRSA (PCR) Ketones 19.80 H SARS-CoV-2 (PCR) Negative 02/05/21 02/05/21 02/05/21 20:50 20:52 21:15 WBC RBC Hgb Hct MCV MCH MCHC RDW Plt Count Neut % (Auto) Lymph % (Auto) [place] % (Auto) Eos % (Auto) Baso % (Auto) Neut # (Auto) Lymph # (Auto) [place] # (Auto) Eos # (Auto) Baso # (Auto) ABG pH 7.08 L* ABG pCO2 12.4 L* ABG pO2 142 H ABG HCO3 4 L ABG Total CO2 < 5 L ABG O2 Saturation 98 ABG Base Excess -26.0 L FiO2 21 Sodium Potassium Chloride Carbon Dioxide BUN Creatinine Estimated GFR BUN/Creatinine Ratio Glucose Lactate 2.4 H Calcium Total Bilirubin AST ALT Alkaline Phosphatase Total Protein Albumin Globulin Albumin/Globulin Ratio Procalcitonin Urine Color Yellow Urine Appearance Clear Urine pH 5.0 Ur Specific [place] 1.010 Urine Protein Negative Urine Glucose (UA) 2+ H Urine Ketones 2+ H Urine Occult Blood Negative Urine Nitrate Negative Urine Bilirubin Negative Urine Urobilinogen 0.2 Ur Leukocyte Esterase Negative Urine RBC 0-1/hpf Urine WBC 0-1/hpf Ur Squamous Epith Cells 1-5 /hpf Urine Bacteria Occasional (0-1) Urine Yeast 0-1/hpf Ur Culture Indicated? Cult not indicated Nasal Screen MRSA (PCR) Ketones SARS-CoV-2 (PCR) 02/06/21 02/06/21 02/06/21 01:46 01:46 02:05 WBC 17.2 H D RBC 4.28 Hgb 13.1 Hct 41.0 MCV 95.8 D MCH 30.6 MCHC 31.9 RDW 13.3 Plt Count 359 Neut % (Auto) 74.5 Lymph % (Auto) 14.9 L [place] % (Auto) 10.1 Eos % (Auto) 0.0 L Baso % (Auto) 0.5 Neut # (Auto) 68276 H Lymph # (Auto) 2600 [place] # (Auto) 1700 H Eos # (Auto) 0 Baso # (Auto) 100 ABG pH ABG pCO2 ABG pO2 ABG HCO3 ABG Total CO2 ABG O2 Saturation ABG Base Excess FiO2 Sodium 140 Potassium 3.7 D Chloride 105 Carbon Dioxide < 5 L* BUN 23 H Creatinine 0.81 Estimated GFR > 60.0 BUN/Creatinine Ratio 28.4 H Glucose 471 H D Lactate 1.8 Calcium 9.2 Total Bilirubin AST ALT Alkaline Phosphatase Total Protein Albumin Globulin Albumin/Globulin Ratio Procalcitonin Urine Color Urine Appearance Urine pH Ur Specific [place] Urine Protein Urine Glucose (UA) Urine Ketones Urine Occult Blood Urine Nitrate Urine Bilirubin Urine Urobilinogen Ur Leukocyte Esterase Urine RBC Urine WBC Ur Squamous Epith Cells Urine Bacteria Urine Yeast Ur Culture Indicated? Nasal Screen MRSA (PCR) Ketones SARS-CoV-2 (PCR) 02/06/21 02/06/21 02:30 06:30 WBC RBC Hgb Hct MCV MCH MCHC RDW Plt Count Neut % (Auto) Lymph % (Auto) [place] % (Auto) Eos % (Auto) Baso % (Auto) Neut # (Auto) Lymph # (Auto) [place] # (Auto) Eos # (Auto) Baso # (Auto) ABG pH ABG pCO2 ABG pO2 ABG HCO3 ABG Total CO2 ABG O2 Saturation ABG Base Excess FiO2 Sodium 141 Potassium 4.1 Chloride 112 H Carbon Dioxide 12 L BUN 20 H Creatinine 0.55 Estimated GFR > 60.0 BUN/Creatinine Ratio 36.4 H Glucose 190 H D Lactate Calcium 8.5 Total Bilirubin AST ALT Alkaline Phosphatase Total Protein Albumin Globulin Albumin/Globulin Ratio Procalcitonin Urine Color Urine Appearance Urine pH Ur Specific [place] Urine Protein Urine Glucose (UA) Urine Ketones Urine Occult Blood Urine Nitrate Urine Bilirubin Urine Urobilinogen Ur Leukocyte Esterase Urine RBC Urine WBC Ur Squamous Epith Cells Urine Bacteria Urine Yeast Ur Culture Indicated? Nasal Screen MRSA (PCR) Negative for mrsa Ketones SARS-CoV-2 (PCR) Exam Vital Signs (past 8 hours): - 02/06/21 02:00 02/06/21 02:32 02/06/21 02:33 Temperature Pulse Rate 125 H 126 H 124 H Respiratory Rate 16 33 H Blood Pressure 107/73 Pulse Oximetry 100 100 02/06/21 02:42 02/06/21 02:43 02/06/21 03:00 Temperature Pulse Rate 129 H 118 H Respiratory Rate 17 18 Blood Pressure 108/69 Pulse Oximetry 100 100 02/06/21 03:30 02/06/21 04:00 02/06/21 04:30 Temperature Pulse Rate 120 H 117 H 114 H Respiratory Rate 14 12 11 L Blood Pressure Pulse Oximetry 100 100 100 02/06/21 04:41 02/06/21 05:00 02/06/21 05:30 Temperature 97.7 F Pulse Rate 113 H 111 H Respiratory Rate 12 11 L Blood Pressure Pulse Oximetry 100 99 02/06/21 06:00 02/06/21 06:30 02/06/21 07:00 Temperature Pulse Rate 111 H 110 H 110 H Respiratory Rate 12 13 12 Blood Pressure Pulse Oximetry 98 99 98 02/06/21 07:48 Temperature 98.4 F Pulse Rate 107 H Respiratory Rate 16 Blood Pressure 101/60 Pulse Oximetry 98 Oxygen Delivery Method Room Air Oxygen Flow Rate 0 Narrative Exam Narrative: Not in acute distress. Lying in bed comfortably. Assessment & Plan Assessment & Plan narrative: # DKA -- Cont IVF -- On DKA protocol w/ insulin drip -- Every hour Accu-checks, every 4 hour BMP, Mg, Phos -- High lytes goal - Transition to sliding scale insulin when AG <12 and Co2 > 17 -- Needs DM education prior to discharge Case d/w RNm hospitalist, and pharmacist. Time Spent With Patient Critical Care time: I spent a total of [] minutes of critical care time on this patient's care today; this time is exclusive of procedural time.
[2021-02-06] MEDS: DEXTROSE 5%-0.45% NS 1,000 ML 58.2 ML IV (10:00)
[2021-02-06 11:24] LABS: BUN Creatinine Ratio 39.5 (6-22); Blood Urea Nitrogen 17 mg/dL (7-17); Calcium 8.2 mg/dL (8.4-10.2); Carbon Dioxide 15 mmol/L (22-32); Chloride 112 mmol/L (98-107); Estimated Glomerular Filt Rate > 60.0 mL/min (>60); Glucose 138 mg/dL (70-100); HEMOLYSIS < 15 (0-50); Potassium 4.4 mmol/L (3.4-5.1); Sodium 138 mmol/L (137-145)
--- NOTE | 2021-02-06 14:30 | PC.NURSE ---
Day Shift Note Pt fatigued and withdrawn, cooperative with care but not very proactive in her care. Insulin gtt and IV fluids infusing per DKA protocol. Titrating according to DKA protocol per Dr. Weinberg. SR in the 80-90s. Up to bedside commode to void. Call light within reach, using appropriately to make needs known. Sleeping most of shift.
[2021-02-06 15:17] LABS: BUN Creatinine Ratio 36.6 (6-22); Blood Urea Nitrogen 15 mg/dL (7-17); Calcium 8.5 mg/dL (8.4-10.2); Carbon Dioxide 16 mmol/L (22-32); Chloride 110 mmol/L (98-107); Estimated Glomerular Filt Rate > 60.0 mL/min (>60); Glucose 133 mg/dL (70-100); HEMOLYSIS < 15 (0-50); Potassium 4.4 mmol/L (3.4-5.1); Sodium 138 mmol/L (137-145)
--- NOTE | 2021-02-06 17:10 | DIET.PN1 ---
Dietary Progress Note Assessment: 31y F admitted for DKA (BG >700, urine ketones >10) referred to nutrition for DM education. Pt met c Senior J2Ee Developer last month when in ICU for DKA. Pt agreeable to continuing professional relationship on OP basis. RD/Burial Vault Maker called pt 3x leaving VMs and talked over phone with pt once over past month without follow-through for attending in person or virtual visit. Ongoing concern regarding ED-DMT1 (insulin omission as purging behavior) as pts BMI has remained below 20 and A1c >14 x2y, poor wound healing, absent menses, electrolyte derangements, with many admissions for DKA and opportunity for increased compliance via frequent contacts within this hospital system. Ht: 154.94 cm Wt: 40 kg BMI: 16.6 Last BM: 02/05/21 (02/06/21 03:20) MNA: 5 Carmelo Score: 17 Labs: RBC 4.28 X10^6/uL (4.0-5.2) 02/06/21 02:05 Hgb 13.1 g/dL (12.0-16.0) 02/06/21 02:05 Hct 41.0 % (36-46) 02/06/21 02:05 Creatinine 0.41 mg/dL (0.52-1.04) L 02/06/21 15:00 Lactate 1.8 mmol/L (0.7-2.1) 02/06/21 01:46 Nutrition Diagnosis: Severe Acute on Chronic Protein Calorie Malnutrition r/t DMT1 non-compliance aeb pt admitted to ICU for DKA with BG >700, A1c >14 x2+y, BMI 16.7 (severe for age), pt with positive urine ketones, pt agreeable to outpatient management but without follow through. Interventions: 1. DM Educator will visit pt in room Saturday if not d/c'd or will f/u with phone call to assess pts readiness for OP DM education and support whether in person or virtual. Electronically Signed by: Ellen Kumari 02/06/21 17:10 Clinical Dietitian [address] [id number]
[2021-02-06 18:42] LABS: BUN Creatinine Ratio 35.9 (6-22); Blood Urea Nitrogen 14 mg/dL (7-17); Calcium 8.4 mg/dL (8.4-10.2); Carbon Dioxide 16 mmol/L (22-32); Chloride 106 mmol/L (98-107); Estimated Glomerular Filt Rate > 60.0 mL/min (>60); Glucose 209 mg/dL (70-100); HEMOLYSIS < 15 (0-50); Potassium 4.4 mmol/L (3.4-5.1); Sodium 131 mmol/L (137-145)
--- NOTE | 2021-02-06 19:18 | PC.NURSE ---
Addendum entered by Indy Vega R.N. 02/06/21 22:03: Carb consistent diet ordered at dinnertime. Pt ate 100% of grilled cheese sandwich, salad, jello; said she was still hungry and asked for a turkey sandwich. Developed diarrhea, followed by large formed stool. Also urinated unmeasurable amount. Blood sugar increased after pt ate dinner; insulin gtt and IVF fluids adjusted per protocol. Pt remains lethargic, flat. Addendum entered by Indy Vega R.N. 02/06/21 19:23: Carb consistent o Original Note: SHIFT: Report received, care assumed 1530. Pt. drowsy, lethargic, but arousable and oriented. No c/o pain. Insulin gtt infusing 1 unit/hr, IVF D10W at 38.8ml/hr, both per DKA protocol. BMP at 1500 and 1820 indicate CO2 values of 16; per Dr. Weinberg, keep pt on DKA protocol until CO2 at least 17. Will recheck at 2300.
--- NOTE | 2021-02-06 20:40 | PM.ICURNDS ---
- Date Patient Seen: 02/06/21 Time Patient Seen: 20:40 :: This patient was seen via real time interactive two-way audiovisual telecommunication. Note: patient seen and examined chart/labs/imaging reviewed DKA resolving, bicarb 16, ag closed -cont protocol -repeat labs -once off of insulin drip can downgrade -please call with any questions
[2021-02-06] MEDS: diphenhydrAMINE 25 MG TABLET 50 MG PO (21:15)
[2021-02-06 23:45] LABS: BUN Creatinine Ratio 34.6 (6-22); Blood Urea Nitrogen 18 mg/dL (7-17); Calcium 8.2 mg/dL (8.4-10.2); Carbon Dioxide 16 mmol/L (22-32); Chloride 105 mmol/L (98-107); Estimated Glomerular Filt Rate > 60.0 mL/min (>60); Glucose 234 mg/dL (70-100); HEMOLYSIS 16 (0-50); Potassium 4.7 mmol/L (3.4-5.1); Sodium 129 mmol/L (137-145)
[2021-02-07] VITALS (7 sets, daily range): BP systolic 99–108; BP diastolic 57–74; PULSE 96–106; RESP 14–18; TEMP 36.4–37.2; O2SAT 96–98
[2021-02-07] MEDS: INSULIN DRIP PREMIX 100 UNIT/100 ML PLAST..BAG IV (02:00)
[2021-02-07 05:18] LABS: Add Manual Diff / Slide Review NO; Basophils Absolute Auto 100 /uL (0-100); Basophils Percent Auto 0.7 % (0-2); Eosinophils Absolute Auto 100 /uL (0-450); Eosinophils Percent Auto 0.7 % (2-4); Hematocrit 35.1 % (36-46); Hemoglobin 11.9 g/dL (12.0-16.0); Lymphocytes Absolute Auto 1800 /uL (1100-4500); Lymphocytes Percent Auto 25.1 % (25-40); Mean Corpuscular Hemoglobin 31.8 PG (26-34); Mean Corpuscular Volume 93.4 fL (80-100); Monocytes Absolute Auto 600 /uL (0-900); Monocytes Percent Auto 7.8 % (3-14); Neutrophils Absolute Auto 4800 /uL (1500-7000); Neutrophils Percent Auto 65.7 % (50-75); Platelet Count 293 X10^3/uL (150-400); Red Blood Cell Count 3.75 X10^6/uL (4.0-5.2); Red Cell Distribution Width 13.2 % (11.6-14.8); White Blood Cell Count 7.3 X10^3/uL (4.5-11.0)
[2021-02-07 05:27] LABS: Alanine Aminotransferase 18 IU/L (<35); Albumin 3.2 g/dL (3.5-5.0); Albumin Globulin Ratio 1.2 (1.0-2.8); Alkaline Phosphatase 107 U/L (38-126); Aspartate Aminotransferase 27 IU/L (14-36); BUN Creatinine Ratio 43.8 (6-22); Bilirubin Total 0.2 mg/dL (0.2-1.3); Blood Urea Nitrogen 21 mg/dL (7-17); Calcium 8.5 mg/dL (8.4-10.2); Carbon Dioxide 20 mmol/L (22-32); Chloride 106 mmol/L (98-107); Estimated Glomerular Filt Rate > 60.0 mL/min (>60); Globulin 2.6 g/dL (1.7-4.1); Glucose 181 mg/dL (70-100); HEMOLYSIS < 15 (0-50); Potassium 4.1 mmol/L (3.4-5.1); Sodium 133 mmol/L (137-145); Total Protein 5.8 g/dL (6.3-8.2)
--- NOTE | 2021-02-07 06:31 | PC.NURSE ---
Addendum entered by Lisette Zarco R.N. 02/07/21 09:59: Patient has eaten breakfast, no nausea, 53units own Tresiba given per her routine, insulin gtt will be titrated off along with D5 1/2NS. Original Note: Solution Sales Senior Executive Note-Patient has remained on insulin gtt at 3-3.4units/hr, BGs 234 down to 181, see flow sheet, D5 1/2NS @ 58.2ml/hr, she is eating carb controlled snacks without nausea, no complaints of pain or episodes of crying, SR/ST, VSS.
--- NOTE | 2021-02-07 08:23 | P.DS_ITS ---
History of Present Illness History of Present Illness Chief complaint: BACK IS TENDER NOT FEELING WELL Narrative: Per Dr. Arita: The patient is a 31 y/o female with Type 1 Diabetes Mellitus well known to our service admitted to the hospital for recurrent DKA. She reports she started feeling ill 2 days ago. She continue taking her insulin but reports her blood sugar continued to escalate.? She states she had a headache, dry mouth, but no nausea or vomiting. She has had no fever, chills, cough, or shortness of breath.? Her major complaint is dry mouth.? She was last hospitalized for DKA one month ago. She was referred to an Stainless Steel Finisher at [facility] and was unable to get an appointment as it sounds like the provider is not taking any new patients.? She reports 2 pound weight loss, but looks much thinner than previously. Her face is flushed.? Patient was seen in the ED and found to have an elevated white count of 17.2, PH 7.08m PCO2 of 12,4, HCO3 4, base excess of - 26, Her CO2 was less than 5mmol/l. She had a glucose of 749 on admission, now blood sugar is 411 after several hours of insulin infusion. She received 1 liter of NS, had a PICC line placed and is now admitted for inpatient treatment of DKA.? She reports no menses for 2 years. She attests that she is taking her insulin, however her AIC of 14 and multiple hospitalizations for DKA imply otherwise. She has glucose and ketones in her urine. She is admitted for treatment of DKA. She remains unvaccinated on the advice of her PCP given her poorly controlled diabetes. Discharge Providers Provider Date of admission: 02/05/21 23:56 Discharge Date: 02/07/21 Primary care physician: Maria Ines Limon DO Consults: 02/06/21 03:10 Consult to Dietitian, Adult Routine Comment: Needs diabetic education Reason For Exam: severe weight loss Discharge provider: Ky Sauer MD Summary Hospital Course Discharge Diagnosis: 1. DKA, Type 1 DM 2. Gastroparesis 3. Neurogenic bladder 4. Severe protein calorie malnutrition Hospital Course: Ms. Jimenes was admitted with DKA. She was found to have elevated blood sugars and an anion gap. She improved quickly with IV insulin and IV fluids and the morning of discharge her blood sugars had improved and she was started on her home medications. Her a1c is 14% consistent with her having issues with compliance. She was referred to endocrinology. She has been referred in the past, she has been recommended to have psychiatry follow up but this has not occurred. Exam Vital Signs (past 8 hours): Oxygen Delivery Method Room Air Oxygen Flow Rate 0 Narrative Exam Narrative: GEN: no acute distress CV: regular rate and rhythm, no murmurs PULM: clear bilaterally ABD: soft, nontender, nondistended, no organomegaly EXT: warm and well perfused with no edema Objective Labs Result Diagrams: 02/07/21 05:00 02/07/21 05:00 [facility] Medical History DKA (diabetic ketoacidoses) History of pyelonephritis Irregular menstrual cycle Migraine headache Nephrolithiasis Type 1 diabetes mellitus Surgical History History of ureter stent Hx of cataract surgery Hx of local excision of skin lesion Status post laser lithotripsy of ureteral calculus [place] teeth extracted Family History Father In good health Mother Cardiac disease Social History details: Engaged household members: family Smoking Status: Never smoker alcohol intake: never Discharge Plan Discharge Plan Patient Disposition: Home Provider Discharge Comment: Ms. Jimenes came to the hospital with DKA. She improved after being on an insulin drip. She felt much better on 02/07, she was requesting to go home. She was discharged on her home medications Discharge orders & Medications Prescriptions: Continued glucose 4 gram tablet,chewable 4 gram PO Q15M PRN (Reason: hypoglycemia) Qty: 30 RF: 0 Glucagon Emergency Kit (human) 1 mg recon soln 1 mg subcut DIRECTED RF: 0 insulin degludec 200 unit/mL (3 mL) Insulin Pen 53 unit SUBCUT 1100 RF: 0 insulin aspart U-100 [Novolog Flexpen U-100 Insulin] 100 unit/mL (3 mL) insulin pen 10 unit SUBCUT AC RF: 0 diphenhydramine HCl 50 mg Capsule 50 mg PO BEDTIME PRN (Reason: Sleep) RF: 0 Medication counseling provided by Pharmacist: Yes Follow up/Referrals: Maria Ines Limon, [Primary Care Provider] - Diet/Activity/Treatments Diet: Carb-consistent/Diabetic Activity: As tolerated Visit Report/Discharge Packet Instructions: DI for Diabetic Ketoacidosis Discharge Data Primary Care Provider: Maria Ines Limon
[2021-02-07] MEDS: INSULIN DEGLUDEC 53 EACH SUBCUT (09:06)
--- NOTE | 2021-02-07 10:45 | CM.DANOTE ---
DCP/Assessment: Reviewed chart. Patient is a 31yr old female admitted to [facility] in [facility]. Patient with h/o Type I diabetes. PCP is Dr. Limon. Primary payor is 1)[employer] 2)Medicaid. Met with patient this AM explained CM/SW role. Patient alert and oriented, and very cooperative at time of VEHICLE MECHANIC visit. Patient reports that she has been feeling sick and thought she might have COVID? Patient tested as outpatient and it was determined that she had cold. Patient reports that her PCP is on maternity leave. Patient reports that she currently does not have animal technician but it trying to obtain one? Patient admits to having difficulty navigating the health care system. Patient also reports once her start getting high she has hard time managing them and often ends up at [facility] VEHICLE MECHANIC left with [facility] CM department requesting assistance for this member. Unclear if getting patient endocrinology appointment would keep hospitalizations to a minimal amount. Patient definitely would benefit from close CM follow up as outpatient. It is clear that patient has not been managing her diabetes on her own. VEHICLE MECHANIC asked patient what she would like to do in the future? Patient reports that she has had diabetes since the age of 6. Patient graduated high school and would love to return to school to work with animals. VEHICLE MECHANIC encouraged patient to look into community college or trade school options. Patient discharging from [facility] today. VEHICLE MECHANIC will provide patient with [facility] number for outpatient services. If [facility] calls will request immediate follow up for this patient as outpatient. P: Home today. KJS Discharge Planning/Care Management Advanced directive, confirm from FAMILY Start: 02/06/21 03:53 Freq: Q24H Status: Complete Protocol: Document 02/06/21 03:00 SMS (Rec: 02/06/21 04:30 SMS [id number]) Co-Signed By Gui Adame RN 02/06/21 03:00 Advance Directive, confirm on record Time 03:00 Person contacted none Copy received No CM Discharge Assessment Start: 02/07/21 10:25 Freq: Status: Active Protocol: Document 02/07/21 10:34 KJS (Rec: 02/07/21 10:44 KJS [id number]) Discharge Planning Assessment Assigned Linker Up RAYMOND Valladares Contact Information Argelia Malone (Mother) ph# Advance Directives? No Advance Directives on File No History Provided By Patient,Medical Record Has Patient been admitted in last 30 Yes days? Comment Patient frequently admitted with DKA. Prior Living Arrangements House Household Members family Type of transporation used prior to Relies on Others admit Independent with ADL's Yes Is patient alert and oriented? Yes Caregiver for Another No Comment PCP is Dr. Limon at [facility]# . Discharge Plan Home Transportation Arrangement Patient reports that her fiance/Reggie or Mother will provide transport home. Referrals Initiated Other Review Status In Process Next Review Type Continued Stay Review
[2021-02-07] MEDS: INSULIN LISPRO 100 UNIT/ML 3ML VIAL SUBCUT (12:23)
--- NOTE | 2021-02-07 13:02 | DIET.PN1 ---
Dietary Progress Note Assessment: Met karina Whipple today. Attributes hyperglycemia to illness. For sick day mgmnt states she drinks low sugar beverages and foods, checks BG more frequently, and takes more insulin prn. [facility] child in the household has been sick and likely passed illness on to her, but she has h/o DKA events r/t poor DM mgmnt. Endorses negative COVID test for her and fiance. This nurse educator has tried to schedule with Sarabjit on multiple occasion. She either does not answer the phone or asks to schedule at a different time. Today she states she would like to get a CGM, Dexcom. [facility] PCP has been working with her on this, though PCP just left on maternity leave. [facility] she called [facility], but they are not taking new patients. Discussed importance of managing diabetes well if she aspires to get CGM/pump system. Discussed that this would entail frequent provider and DM ed follow-up and attention to care. Asked her to schedule DM ed today, she declined. Asked for a call tomorrow when mother is there to schedule a time. Ht: 154.94 cm Wt: 40 kg BMI: 16.6 Last BM: 02/05/21 (02/06/21 03:20) MNA: 5 Carmelo Score: 21 Diet: 02/06/21 Dinner Carbohydrate Consistent Diet Diet Modifications: Carbohydrate level: Medium (3 CHO) Nutrition Percent Meal Consumed 100% 02/07/21 09:08 Percent Meal Consumed 100% 02/06/21 17:45 Labs: RBC 3.75 X10^6/uL (4.0-5.2) L 02/07/21 05:00 Hgb 11.9 g/dL (12.0-16.0) L 02/07/21 05:00 Hct 35.1 % (36-46) L 02/07/21 05:00 Creatinine 0.48 mg/dL (0.52-1.04) L 02/07/21 05:00 Lactate 1.8 mmol/L (0.7-2.1) 02/06/21 01:46 Nutrition Diagnosis: Severe Acute on Chronic Protein Calorie Malnutrition r/t DMT1 non-compliance aeb pt admitted to ICU for DKA with BG >700, A1c >14 x2+y, BMI 16.7 (severe for age), pt with positive urine ketones, pt agreeable to outpatient management but without follow through. Interventions: 1. Will call her tomorrow upon request 2. Discussed sick day management and CGM/pump system aspirations Monitoring/Evaluations: consult prn Electronically Signed by: Iliana Noguera 02/07/21 13:02 Clinical Dietitian, Diabetes Care and Energy Manager[address] [address]
--- NOTE | 2021-02-07 13:58 | PC.NURSE ---
Pt ready for DC, education provided and midline pulled. Wheeled to lobby to meet Mother.
== END 2021-02-07 14:18 | disposition home or self-care (01) | DRG 637 ==
LOC: ED 19:39 → AC 23:57 → ICU 02-06 08:36
PROVIDERS: Internal Medicine; Admitting Provider Internal Medicine; Emergency Provider Emergency Medicine; PCP Student in an Organized Health Care Education/Training Program; Referring Provider Emergency Medicine; Visit Provider Internal Medicine
DX: E10.10 Type 1 diabetes mellitus with ketoacidosis without coma (principal); E43 Unspecified severe protein-calorie malnutrition; Z68.1 Body mass index [BMI] 19.9 or less, adult; E10.43 Type 1 diabetes mellitus with diabetic autonomic (poly)neuropathy; K31.84 Gastroparesis; N31.9 Neuromuscular dysfunction of bladder, unspecified; Z91.19 Patient's noncompliance with other medical treatment and regimen; Z20.822 Contact with and (suspected) exposure to COVID-19
CPT/HCPCS: 36415; 36592; 36600; 80048; 80053; 81001; 81003; 81025; 82009; 82805; 82962; 83605; 84145; 85025; 87040; 87635; 87797; 93005; 93010; 96361; 96374; 99284; 99291; 99292; C9803; J1630; J1644; J1815

== ENCOUNTER 2021-02-10 00:59 | Inpatient (IN) | payer MEDICAID, OTHER, SELFPAY ==
[2021-02-06 03:20] VITALS: BMI 16.6
[2021-02-10] VITALS (21 sets, daily range): BP systolic 86–111; BP diastolic 50–73; PULSE 104–125; RESP 12–28; TEMP 35.7–37; O2SAT 97–100; BMI 16.6
--- NOTE | 2021-02-10 01:33 | DI.RAD.S_ITS ---
PROCEDURE: XR CHEST 1V INDICATIONS: Diabetic ketoacidosis TECHNIQUE: One view of the chest was acquired. COMPARISON: [facility], CR, XR CHEST 1V, 01/02/2021, 19:54. FINDINGS: Surgical changes and devices: None. Lungs and pleura: Lungs are clear. No pleural effusions or pneumothorax. Mediastinum: Mediastinal contours appear normal. Heart size is normal. Bones and chest wall: No suspicious bony lesions. Overlying soft tissues appear unremarkable. IMPRESSION: 1. No acute cardiopulmonary disease. Dictated by: Jesus Winston M.D. on 02/10/2021 at 1:48 Approved by: Jesus Winston M.D. on 02/10/2021 at 1:48
[2021-02-10] MEDS: LACTATED RINGERS 1,000 ML 1000 ML IV (01:40)
[2021-02-10 01:52] LABS: Lactate (Lactic Acid) 2.8 mmol/L (0.7-2.1)
[2021-02-10 01:53] LABS: Alanine Aminotransferase 25 IU/L (<35); Albumin 4.6 g/dL (3.5-5.0); Albumin Globulin Ratio 1.8 (1.0-2.8); Alkaline Phosphatase 218 U/L (38-126); Aspartate Aminotransferase 23 IU/L (14-36); BUN Creatinine Ratio 19.2 (6-22); Bilirubin Total 0.4 mg/dL (0.2-1.3); Blood Urea Nitrogen 23 mg/dL (7-17); Chloride 101 mmol/L (98-107); Estimated Glomerular Filt Rate 53.1 mL/min (>60); Globulin 2.5 g/dL (1.7-4.1); HEMOLYSIS 26 (0-50); Potassium 5.4 mmol/L (3.4-5.1); Sodium 144 mmol/L (137-145); Total Protein 7.1 g/dL (6.3-8.2)
[2021-02-10 02:04] LABS: Carbon Dioxide < 5 mmol/L (22-32)
[2021-02-10 02:05] LABS: Glucose 926 mg/dL (70-100)
[2021-02-10 02:07] LABS: Hematocrit 46.9 % (36-46); Hemoglobin 13.7 g/dL (12.0-16.0); Mean Corpuscular HGB Conc 29.2 % (30-36); Mean Corpuscular Hemoglobin 31.3 PG (26-34); Mean Corpuscular Volume 107.2 fL (80-100); Platelet Count 412 X10^3/uL (150-400); Red Blood Cell Count 4.37 X10^6/uL (4.0-5.2); Red Cell Distribution Width 14.3 % (11.6-14.8); White Blood Cell Count 15.5 X10^3/uL (4.5-11.0)
[2021-02-10 02:11] LABS: Procalcitonin 0.18 ng/mL (<0.5)
[2021-02-10 02:20] LABS: Ketones (Beta-Hydroxybutyrate) 20.37 mmol/L (<0.27)
--- NOTE | 2021-02-10 02:23 | ED_ITS ---
HPI - General Adult General Chief complaint: Diabetic Problem Stated complaint: high blood sugar Time Seen by Provider: 02/10/21 01:10 Source: patient and family Mode of arrival: Wheelchair Limitations: no limitations History of Present Illness HPI narrative: 31-year-old woman with type 1 diabetes with recurrent DKA most recent discharge was February 05. Her significant other reports that she seemed to be doing well this morning states that she used her insulin and by the time he got home this evening had lost a number of lb due to significant diuresis was who small breathing with increasingly altered mental status. He brought her in for further evaluation. He describes no other changes no new fevers no change to her baseline abdominal pain associated with her DKA. Related Data Home Medications Medication Instructions Recorded Confirmed glucagon (human recombinant) 1 mg 1 mg SUBCUT DIRECTED 02/16/19 02/06/21 solution for injection (Glucagon Emergency Kit) insulin degludec 200 unit/mL (3 53 unit SUBCUT 1100 11/21/19 02/06/21 mL) subcutaneous pen insulin aspart U-100 100 unit/mL 10 unit SUBCUT AC 05/20/20 02/06/21 (3 mL) subcutaneous pen (Novolog Flexpen U-100 Insulin aspart) diphenhydramine HCl 50 mg capsule 50 mg PO BEDTIME PRN 09/29/20 02/06/21 Previous Rx's Medication Instructions Recorded glucose 4 gram chewable tablet 4 gram PO Q15M PRN #30 tab 12/12/18 Allergies Allergy/AdvReac Type Severity Reaction Status Date / Time abdalla [ABDALLA] Allergy Intermediate Hives, Verified 01/02/21 17:05 pruritus iodine [IODINE] Allergy Intermediate rash, itchy Verified 01/02/21 17:05 morphine Allergy Intermediate Difficulty Verified 01/02/21 17:05 Breathing shellfish derived Allergy Intermediate rash Verified 01/02/21 17:05 [SHELLFISH DERIVED] adhesive [ADHESIVE] Allergy Unknown tape Verified 01/02/21 17:05 latex [LATEX] Allergy Unknown Hives Verified 01/02/21 17:05 Review of Systems Review of Systems ROS Unobtainable: Unobtainable due to medical condition and Unobtainable due to mental status/LOC Patient History Medical History DKA (diabetic ketoacidoses) History of pyelonephritis Irregular menstrual cycle Migraine headache Nephrolithiasis Type 1 diabetes mellitus Surgical History History of ureter stent Hx of cataract surgery Hx of local excision of skin lesion Status post laser lithotripsy of ureteral calculus [place] teeth extracted Family History Father In good health Mother Cardiac disease Social History details: Engaged household members: family Smoking Status: Never smoker alcohol intake: never Smoking Status: Never smoker alcohol intake frequency: holidays/special occasions only Substance Use Type: does not use Exam Narrative Exam Narrative: General: Cachectic, chronically ill-appearing flushed woman with Kussmaul breathing HEENT: Cracked lips and dry mucous membranes, normal sclera with reactive pupils, Respiratory: Lungs are clear to auscultation, no wheezing no rales no rhonchi. Cardiac: Tachycardic with Regular rate and rhythm no murmurs no bruits Abdomen: Scaphoid, Soft, no pain behaviors elicited with palpation, hypoactive bowel tones, no flank pain. Skin: Poorly perfused, very dry Neurologic: Not alert to person time or place, restless movement of all extremities Extremities: No trauma, poor perfusion Psych: Altered mental status due to acute illness Initial Vital Signs Initial Vital Signs: Vital Signs Temperature 96.8 F L 02/10/21 01:05 Pulse Rate 122 H 02/10/21 01:05 Respiratory Rate 28 H 02/10/21 01:05 Blood Pressure 110/71 02/10/21 01:05 Pulse Oximetry 100 02/10/21 01:05 Course Orders Ordered: ED Orders 02/10/21 01:30 Complete Blood Count AUTO DIFF Stat Comprehensive Metabolic Panel Stat Ketones (Beta-Hydroxybutyrate) Stat Lactate (Lactic Acid) Stat Procalcitonin Stat 02/10/21 01:33 XR chest 1V Stat Venous Blood Gas Stat EKG-12 Lead Stat 02/10/21 01:45 Blood Culture Stat 02/10/21 02:30 Respiratory Panel (Film Array) Stat INSULIN DRIP PREMIX (Myxredlin Drip Premix) 100 unit in 100 mls @ 6 mls/hr IV TITRATE BLAISE; Protocol Last Admin: 02/10/21 02:26 Dose: 6 mls/hr, 6 mls/hr Documented by: Discontinued Medications Lactated Ringer's (Lactated Ringers) 1,000 mls @ 1,000 mls/hr IV BOLUS ONE Stop: 02/10/21 02:32 Last Admin: 02/10/21 01:40 Dose: 1,000 mls/hr Documented by: Ondansetron HCl (Ondansetron 4 Mg/2 Ml Inj) 4 mg IV NOW ONE Stop: 02/10/21 01:34 Vital Signs Vital signs: Vital Signs - 8 hr 02/10/21 01:05 Temperature 96.8 F L Pulse Rate 122 H Respiratory Rate 28 H Blood Pressure 110/71 Pulse Oximetry 100 Medical Decision Making Lab Data Result diagrams: 02/10/21 01:30 02/10/21 01:30 Labs: Lab Results 02/10/21 02/10/21 02/10/21 Range/Units 01:30 01:30 01:30 WBC 15.5 H (4.5-11.0) X10^3/uL RBC 4.37 (4.0-5.2) X10^6/uL Hgb 13.7 (12.0-16.0) g/dL Hct 46.9 H (36-46) % MCV 107.2 H D (80-100) fL MCH 31.3 (26-34) PG MCHC 29.2 L D (30-36) % RDW 14.3 (11.6-14.8) % Plt Count 412 H (150-400) X10^3/uL Neut % (Auto) Not Reportable Lymph % (Auto) Not Reportable [place] % (Auto) Not Reportable Eos % (Auto) Not Reportable Baso % (Auto) Not Reportable Lymph # (Auto) Not Reportable [place] # (Auto) Not Reportable Baso # (Auto) Not Reportable Sodium 144 D (137-145) mmol/L Potassium 5.4 H D (3.4-5.1) mmol/L Chloride 101 (98-107) mmol/L Carbon Dioxide < 5 L* (22-32) mmol/L BUN 23 H (7-17) mg/dL Creatinine 1.20 H (0.52-1.04) mg/dL Estimated GFR 53.1 L (>60) mL/min BUN/Creatinine Ratio 19.2 (6-22) Glucose 926 H* D (70-100) mg/dL Lactate 2.8 H (0.7-2.1) mmol/L Calcium 10.0 (8.4-10.2) mg/dL Total Bilirubin 0.4 (0.2-1.3) mg/dL AST 23 (14-36) IU/L ALT 25 (<35) IU/L Alkaline Phosphatase 218 H D (38-126) U/L Total Protein 7.1 (6.3-8.2) g/dL Albumin 4.6 (3.5-5.0) g/dL Globulin 2.5 (1.7-4.1) g/dL Albumin/Globulin Ratio 1.8 (1.0-2.8) Procalcitonin 0.18 (<0.5) ng/mL Ketones 20.37 H (<0.27) mmol/L Point of Care Testing Glucose POC 927 Point of care testing: Point of Care Testing Glucose POC 927 Imaging Data Chest x-ray: Radiologist's Impression: FINDINGS:? ? Surgical changes and devices:? None.? ? Lungs and pleura:? Lungs are clear.? No pleural effusions or pneumothorax.? ? Mediastinum:? Mediastinal contours appear normal.? Heart size is normal.? ? Bones and chest wall:? No suspicious bony lesions.? Overlying soft tissues appear unremarkable.? ? IMPRESSION:? ? 1.? No acute cardiopulmonary disease. ? ? Dictated by: Jesus Winston M.D. on 02/10/2021 at 1:48 ? ? ECG Data Interpretation: Sinus tachycardia at a rate of 124 Normal intervals, normal axis No acute ischemic changes MDM Narrative Medical decision making narrative: 31-year-old type 1 diabetic again in DKA with significant Kussmaul breathing, dehydration, tachycardia, altered mental status. Anion gap is 39, significant increase in creatinine from 0.48 to 1.2 in the last 3 days. Potassium is currently 5.4. Blood gas is pending. No evidence of acute infectious etiology at this time. Patient will be admitted to the ICU for treatment of her acute DKA. Care is reviewed with the hospitalist and patient is safe for transfer to the intensive care unit. Discharge Plan Departure Patient Disposition: Admitted As Inpatient Clinical Impression: Diabetic ketoacidosis associated with type 1 diabetes mellitus Qualifiers: Diabetes mellitus complication detail: with coma Qualified Code(s): E10.11 - Type 1 diabetes mellitus with ketoacidosis with coma Admit Date/Time: 02/10/21 02:49 Admit Provider: Doris Scruggs
[2021-02-10 02:25] LABS: Add Manual Diff / Slide Review YES
[2021-02-10] MEDS: INSULIN DRIP PREMIX 100 UNIT/100 ML PLAST..BAG 6 UNIT IV (02:26)
[2021-02-10 03:30] LABS: Adenovirus Not Detected (Not Detect); B. parapertussis Not Detected (Not Detecte); Bordetella pertussis Not Detected (Not Detecte); Chlamydophila pneumoniae Not Detected (Not Detect); Coronavirus 229E Not Detected (Not Detect); Coronavirus HKU1 Not Detected (Not Detect); Coronavirus NL 63 Not Detected (Not Detect); Coronavirus OC43 Not Detected (Not Detect); Human Metapneumovirus Not Detected (Not Detect); Human Rhinovirus/Enterovirus Not Detected (Not Detect); Influenza A Not Detected (Not Detect); Influenza B Not Detected (Not Detect); Mycoplasma pneumoniae Not Detected (Not Detect); Parainfluenza Virus 1 Not Detected (Not Detect); Parainfluenza Virus 2 Not Detected (Not Detect); Parainfluenza Virus 3 Not Detected (Not Detect); Parainfluenza Virus 4 Not Detected (Not Detect); Respiratory Syncytial Virus Not Detected (Not Detect); SARS- CoV-2 Not Detected (Not Detecte)
[2021-02-10 03:33] LABS: HCO3 VBG 3 mmol/L (23-28); PCO2 VBG 14.9 mmHg (45-50); PO2 VBG 61 mmHg (35-45); Total CO2 VBG < 5 mmol/L (24-29)
[2021-02-10 03:34] LABS: Oxygen Saturation VBG 71 % (70-75)
[2021-02-10 03:41] LABS: Reflexed Lactate in 2 Hours Y
[2021-02-10 03:58] LABS: Glucose 836 mg/dL (70-100)
[2021-02-10] MEDS: INSULIN REGULAR 100 UNIT/ML 3 ML VIAL IV (04:57)
--- NOTE | 2021-02-10 04:58 | PM.CN.EICU ---
History of Present Illness Consult details Chief complaint: high blood sugar :: This patient was seen via real time interactive two-way audiovisual telecommunication. Narrative: 31 yo w frequent admissions for DKA (likley due to poor compliance A1C > 14) presents in DKA. Given 1L LR bolus in ED and started on insulin infusion at 6u/hr without a bolus. I was asked to help with her management. [facility] Medical History DKA (diabetic ketoacidoses) History of pyelonephritis Irregular menstrual cycle Migraine headache Nephrolithiasis Type 1 diabetes mellitus Surgical History History of ureter stent Hx of cataract surgery Hx of local excision of skin lesion Status post laser lithotripsy of ureteral calculus [place] teeth extracted Family History Father In good health Mother Cardiac disease Social History details: Engaged household members: family Smoking Status: Never smoker alcohol intake: never Current Medications Current Medications Medications: Home Medications glucose 4 gram chewable tablet 4 gram PO Q15M PRN #30 tab 12/12/18 [Rx Confirmed 02/06/21] glucagon (human recombinant) 1 mg solution for injection (Glucagon Emergency Kit) 1 mg SUBCUT DIRECTED 02/16/19 [History Confirmed 02/06/21] insulin degludec 200 unit/mL (3 mL) subcutaneous pen 53 unit SUBCUT 1100 11/21/19 [History Confirmed 02/06/21] insulin aspart U-100 100 unit/mL (3 mL) subcutaneous pen (Novolog Flexpen U-100 Insulin aspart) 10 unit SUBCUT AC 05/20/20 [History Confirmed 02/06/21] diphenhydramine HCl 50 mg capsule 50 mg PO BEDTIME PRN 09/29/20 [History Confirmed 02/06/21] Visit Medications (administered) Generic Name Dose Route Start Last Admin Trade Name Freq PRN Reason Stop Dose Admin INSULIN DRIP PREMIX 100 unit in 100 mls @ 6 mls/hr 02/10/21 02:00 02/10/21 03:30 Myxredlin Drip Premix IV 6 mls/hr TITRATE BLAISE 6 mls/hr Titration Protocol Exam Vital Signs (past 8 hours): - 02/10/21 01:05 02/10/21 02:07 02/10/21 02:30 Temperature 96.8 F L Pulse Rate 122 H 123 H 120 H Respiratory Rate 28 H 22 19 Blood Pressure 110/71 Pulse Oximetry 100 100 02/10/21 03:00 02/10/21 03:45 02/10/21 04:00 Temperature 97.0 F L Pulse Rate 119 H 122 H 125 H Respiratory Rate 19 20 18 Blood Pressure 99/58 L 103/57 L Pulse Oximetry 100 100 Oxygen Delivery Method Room Air Objective Labs Result Diagrams: 02/10/21 01:30 02/10/21 03:30 Labs: Laboratory Results - last 24 hr 02/10/21 02/10/21 02/10/21 01:30 01:30 01:30 WBC 15.5 H RBC 4.37 Hgb 13.7 Hct 46.9 H MCV 107.2 H D MCH 31.3 MCHC 29.2 L D RDW 14.3 Plt Count 412 H Neut % (Auto) Not Reportable Lymph % (Auto) Not Reportable [place] % (Auto) Not Reportable Eos % (Auto) Not Reportable Baso % (Auto) Not Reportable Lymph # (Auto) Not Reportable [place] # (Auto) Not Reportable Baso # (Auto) Not Reportable VBG pH VBG pCO2 VBG pO2 VBG HCO3 VBG Total CO2 VBG O2 Saturation VBG Base Excess Sodium 144 D Potassium 5.4 H D Chloride 101 Carbon Dioxide < 5 L* BUN 23 H Creatinine 1.20 H Estimated GFR 53.1 L BUN/Creatinine Ratio 19.2 Glucose 926 H* D Lactate 2.8 H Calcium 10.0 Total Bilirubin 0.4 AST 23 ALT 25 Alkaline Phosphatase 218 H D Total Protein 7.1 Albumin 4.6 Globulin 2.5 Albumin/Globulin Ratio 1.8 Procalcitonin 0.18 Ketones 20.37 H Chlamy pneumoniae PCR Adenovirus (PCR) B. pertussis DNA (PCR) B.parapertussis DNA PCR Coronavirus OC43 (PCR) Coronavirus HKU1 (PCR) Coronavirus 229E (PCR) SARS-CoV-2 (PCR) Coronavirus NL63 (PCR) Human Metapneumovir PCR Influenza Type A (PCR) Influenza Type B (PCR) M. pneumoniae (PCR) Parainfluenza 1 (PCR) Parainfluenza 2 (PCR) Parainfluenza 3 (PCR) Parainfluenza 4 (PCR) RSV (PCR) Entero/Rhino (PCR) 02/10/21 02/10/21 02/10/21 02:30 03:01 03:30 WBC RBC Hgb Hct MCV MCH MCHC RDW Plt Count Neut % (Auto) Lymph % (Auto) [place] % (Auto) Eos % (Auto) Baso % (Auto) Lymph # (Auto) [place] # (Auto) Baso # (Auto) VBG pH 6.90 L* VBG pCO2 14.9 L VBG pO2 61 H VBG HCO3 3 L VBG Total CO2 < 5 L VBG O2 Saturation 71 VBG Base Excess -30.0 L Sodium Potassium Chloride Carbon Dioxide BUN Creatinine Estimated GFR BUN/Creatinine Ratio Glucose 836 H* Lactate Calcium Total Bilirubin AST ALT Alkaline Phosphatase Total Protein Albumin Globulin Albumin/Globulin Ratio Procalcitonin Ketones Chlamy pneumoniae PCR Not detected Adenovirus (PCR) Not detected B. pertussis DNA (PCR) Not detected B.parapertussis DNA PCR Not detected Coronavirus OC43 (PCR) Not detected Coronavirus HKU1 (PCR) Not detected Coronavirus 229E (PCR) Not detected SARS-CoV-2 (PCR) Not detected Coronavirus NL63 (PCR) Not detected Human Metapneumovir PCR Not detected Influenza Type A (PCR) Not detected Influenza Type B (PCR) Not detected M. pneumoniae (PCR) Not detected Parainfluenza 1 (PCR) Not detected Parainfluenza 2 (PCR) Not detected Parainfluenza 3 (PCR) Not detected Parainfluenza 4 (PCR) Not detected RSV (PCR) Not detected Entero/Rhino (PCR) Not detected Assessment & Plan Assessment and plan (1) Diabetic ketoacidosis associated with type 1 diabetes mellitus: Qualifiers: Diabetes mellitus complication detail: without coma Qualified Code(s): E10.10 - Type 1 diabetes mellitus with ketoacidosis without coma Status: Acute Plan: 1L LR bolus now Fixed dose insulin infusin at 4u/hr POC BG Q1h LR at 150cc/hr D5LR at 150cc/hr when BG < 250 Q4h BMP Cont insulin infusion until AG < 12 Pt with poor IV access and inability to get blood, PICC ordered for this morning to facilitate care. d/w Macho Scruggs ([email or web address]) as well as bedside nurse COVID-19 COVID-19 status: Negative Result date/Date tested (Pos, Neg/Pending): 02/10/21 Time Spent With Patient Critical Care time: I spent a total of [35] minutes of critical care time on this patient's care today; this time is exclusive of procedural time.
[2021-02-10] MEDS: LACTATED RINGERS 500 ML 1000 ML IV (05:00)
--- NOTE | 2021-02-10 05:17 | PC.NURSE ---
Addendum entered by Liilan Aguirre R.N. 02/10/21 06:54: 0630-Patient BG remains greater than 500 via finger stick. Waiting on insertion of central line so labs can be obtained. MD aware. Insulin gtt remains at 4u/hr per order and LR is infusing at 150 cc/hr. Will monitor. Original Note: 0500- Patient admitted to room 226 from emergency. Patient wakes and does respond verbally when addressed. Patient is pale and appears ill. BG 836. Insulin gtt infusion going per orders. Order placed for Picc line. Will monitor BG Q1hr per order. Unable to obtain blood sample via lab so BMP will wait until access obtained Kitchen Lead aware. Patient is stable at this time.
--- NOTE | 2021-02-10 06:08 | PM.HP.1 ---
History of Present Illness History of Present Illness Date Patient Seen: 02/10/21 Time Patient Seen: 04:30 Chief complaint: Diabetic ketoacidosis Narrative: Romi Jimenes is a 31-year-old type 1 diabetic female well known to staff with a ongoing history admissions for diabetic ketoacidosis, was in her usual state of health when her significant other returned home from work and found her appearing very dehydrated and very out of it. She is unable to provide a history as she appears to be quite confused. Per her significant other she does eat when he is at home with her but does not know what her eating habits are when he is out. Patient did state she was very hungry and did not recall eating at all on the day prior to admission. She told me that she took her insulin but could not tell me what time or how much. The patient was recently admitted on February 07 and discharged next day for the same thing and has had multiple admissions over the past 2 years for diabetic ketoacidosis. Patient is unable to provide me with the review of systems. In the emergency department they started her on an insulin drip without a bolus. At that time she was reported to have [place] pattern breathing. She is afebrile, blood pressure 97/57, heart rate 121, respiratory rate of 12 oxygen saturation of 100% on room air. WBC is 15.5, hematocrit is 46.9, platelet count is 412, VBG pH was 6.9, VBG pCO2 was 14.9, VBG PO2 was 61, VBG bicarb was 3, VBG total CO2 was less than 5, VBG O2 saturation was 71% and I calculated the anion gap to be 39. Sodium was 144, potassium 5.4, chloride 101, bicarb less than 5, BUN 23, creatinine 1.20 which is greater than her baseline with a EGFR 53.1, glucose 836, lactate 2.8, alk-phos 218, and COVID-19 PCR was negative. Patient History Medical History DKA (diabetic ketoacidoses) History of pyelonephritis Irregular menstrual cycle Migraine headache Nephrolithiasis Type 1 diabetes mellitus Surgical History History of ureter stent Hx of cataract surgery Hx of local excision of skin lesion Status post laser lithotripsy of ureteral calculus [place] teeth extracted Family & Social History Family History Father In good health Mother Cardiac disease Social History: household members family Prior Living Arrangements House Safety & Behavioral: Feels Safe in Current Yes Environment Been Physically Hurt or No Threatened By a Person Suicidal Ideation Description None Suicide Plan Description No Plan Tobacco & Substance use: Smoking Status Never smoker alcohol intake never alcohol intake frequency holiday/special occasion Substance Use Type does not use Meds Home Medications and Allergies Home Medications Medication Instructions Recorded Confirmed Type glucose 4 gram chewable tablet 4 gram PO Q15M PRN #30 tab 12/12/18 02/06/21 Rx glucagon (human recombinant) 1 mg 1 mg SUBCUT DIRECTED 02/16/19 02/06/21 History solution for injection (Glucagon Emergency Kit) insulin degludec 200 unit/mL (3 53 unit SUBCUT 1100 11/21/19 02/06/21 History mL) subcutaneous pen insulin aspart U-100 100 unit/mL 10 unit SUBCUT AC 05/20/20 02/06/21 History (3 mL) subcutaneous pen (Novolog Flexpen U-100 Insulin aspart) diphenhydramine HCl 50 mg capsule 50 mg PO BEDTIME PRN 09/29/20 02/06/21 History Allergies Allergy/AdvReac Type Severity Reaction Status Date / Time abdalla [ABDALLA] Allergy Intermediate Hives, Verified 01/02/21 17:05 pruritus iodine [IODINE] Allergy Intermediate rash, itchy Verified 01/02/21 17:05 morphine Allergy Intermediate Difficulty Verified 01/02/21 17:05 Breathing shellfish derived Allergy Intermediate rash Verified 01/02/21 17:05 [SHELLFISH DERIVED] adhesive [ADHESIVE] Allergy Unknown tape Verified 01/02/21 17:05 latex [LATEX] Allergy Unknown Hives Verified 01/02/21 17:05 Review of Systems Review of Systems ROS: Yes unobtainable due to mental status Exam Vital Signs (past 8 hours): - 02/10/21 01:05 02/10/21 02:07 02/10/21 02:30 Temperature 96.8 F L Pulse Rate 122 H 123 H 120 H Respiratory Rate 28 H 22 19 Blood Pressure 110/71 Pulse Oximetry 100 100 02/10/21 03:00 02/10/21 03:30 02/10/21 03:45 Temperature 97.0 F L Pulse Rate 119 H 120 H 122 H Respiratory Rate 19 19 20 Blood Pressure 99/58 L Pulse Oximetry 100 02/10/21 04:00 02/10/21 05:00 02/10/21 05:15 Temperature Pulse Rate 125 H 123 H 123 H Respiratory Rate 18 16 18 Blood Pressure 103/57 L 91/59 L Pulse Oximetry 100 100 100 02/10/21 05:30 02/10/21 06:00 Temperature Pulse Rate 122 H 121 H Respiratory Rate 17 12 Blood Pressure 97/57 L Pulse Oximetry 100 100 Oxygen Delivery Method Room Air Narrative Exam Narrative: Gen: Arousable, cachectic appearing 31y.o. female, anxious and appears to be upset HEENT: normocephalic, atraumatic, conjunctiva clear, sclera non-icteric, oral mucosa pink and moist Neck: supple, full ROM, no JVD, trachea is midline Resp: Lungs coarse sounds with no wheezing, non-labored breathing CV: RRR, no murmur or rubs Abd: soft, non-tender, normoactive BTs Skin: no lesions or rashes, dry and intact Neuro: GCS 12, arousable and oriented X 3w/no focal deficits. Speech clear and coherent. Extremities: moves all 4 extremities, is ambulatory, negative Namita?s sign. Left great toenail appears to be bruised. Psyche: normal mood and affect. Objective Labs Result Diagrams: 02/10/21 01:30 02/10/21 03:30 Labs: Laboratory Results - last 24 hr 02/10/21 02/10/21 02/10/21 01:30 01:30 01:30 WBC 15.5 H RBC 4.37 Hgb 13.7 Hct 46.9 H MCV 107.2 H D MCH 31.3 MCHC 29.2 L D RDW 14.3 Plt Count 412 H Neut % (Auto) Not Reportable Lymph % (Auto) Not Reportable [place] % (Auto) Not Reportable Eos % (Auto) Not Reportable Baso % (Auto) Not Reportable Lymph # (Auto) Not Reportable [place] # (Auto) Not Reportable Baso # (Auto) Not Reportable VBG pH VBG pCO2 VBG pO2 VBG HCO3 VBG Total CO2 VBG O2 Saturation VBG Base Excess Sodium 144 D Potassium 5.4 H D Chloride 101 Carbon Dioxide < 5 L* BUN 23 H Creatinine 1.20 H Estimated GFR 53.1 L BUN/Creatinine Ratio 19.2 Glucose 926 H* D Lactate 2.8 H Calcium 10.0 Total Bilirubin 0.4 AST 23 ALT 25 Alkaline Phosphatase 218 H D Total Protein 7.1 Albumin 4.6 Globulin 2.5 Albumin/Globulin Ratio 1.8 Procalcitonin 0.18 Ketones 20.37 H Chlamy pneumoniae PCR Adenovirus (PCR) B. pertussis DNA (PCR) B.parapertussis DNA PCR Coronavirus OC43 (PCR) Coronavirus HKU1 (PCR) Coronavirus 229E (PCR) SARS-CoV-2 (PCR) Coronavirus NL63 (PCR) Human Metapneumovir PCR Influenza Type A (PCR) Influenza Type B (PCR) M. pneumoniae (PCR) Parainfluenza 1 (PCR) Parainfluenza 2 (PCR) Parainfluenza 3 (PCR) Parainfluenza 4 (PCR) RSV (PCR) Entero/Rhino (PCR) 02/10/21 02/10/21 02/10/21 02:30 03:01 03:30 WBC RBC Hgb Hct MCV MCH MCHC RDW Plt Count Neut % (Auto) Lymph % (Auto) [place] % (Auto) Eos % (Auto) Baso % (Auto) Lymph # (Auto) [place] # (Auto) Baso # (Auto) VBG pH 6.90 L* VBG pCO2 14.9 L VBG pO2 61 H VBG HCO3 3 L VBG Total CO2 < 5 L VBG O2 Saturation 71 VBG Base Excess -30.0 L Sodium Potassium Chloride Carbon Dioxide BUN Creatinine Estimated GFR BUN/Creatinine Ratio Glucose 836 H* Lactate Calcium Total Bilirubin AST ALT Alkaline Phosphatase Total Protein Albumin Globulin Albumin/Globulin Ratio Procalcitonin Ketones Chlamy pneumoniae PCR Not detected Adenovirus (PCR) Not detected B. pertussis DNA (PCR) Not detected B.parapertussis DNA PCR Not detected Coronavirus OC43 (PCR) Not detected Coronavirus HKU1 (PCR) Not detected Coronavirus 229E (PCR) Not detected SARS-CoV-2 (PCR) Not detected Coronavirus NL63 (PCR) Not detected Human Metapneumovir PCR Not detected Influenza Type A (PCR) Not detected Influenza Type B (PCR) Not detected M. pneumoniae (PCR) Not detected Parainfluenza 1 (PCR) Not detected Parainfluenza 2 (PCR) Not detected Parainfluenza 3 (PCR) Not detected Parainfluenza 4 (PCR) Not detected RSV (PCR) Not detected Entero/Rhino (PCR) Not detected Assessment & Plan Assessment & Plan narrative: Sarabjit Jimenes will be admitted to the ICU for management of an insulin drip secondary to diabetic ketoacidosis. Tele ICU has been consulted and provided some additional recommendations per as below. 1. Diabetic ketoacidosis, acute, present on admission She was started on insulin drip without a bolus in the ED per protocol. Tele ICU provider recommended a weight based fixed dose insulin drip of 4 units per hour with a 4 unit bolus LR to be run in at 1:50 a.m. and when her blood glucose is fall to less than 250 she can go on D5 LR Q.1 hour glucose checks and Q 4 hour BMPs 2. Questionable noncompliance verses mental illness or both I have requested both psychiatry and social work consultation Psychiatry will need to be contacted in the morning for consultation VTE Prophylaxis: Wells risk score [1.5] [X]Enoxaparin 40 mg subQ once daily Patient is admitted to the ICU inpatient service due to the severity of disease, risks of further disease progression and this stay is expected to exceed 2 midnights. FEN: IV fluids: LR at 150 ml/hor, diet: NPO, labs: CBC, C/BMP, liver enzymes, Mag, PT/INR Consultants Psychiatry and Social work, care and involvement in the patient?s care is appreciated. Dispo: unknown at this time Code status: Patient unable to provide due to altered mentation [] I confirmed that the patient's advanced care plan is present, code status is determined, or surrogate decision maker is listed on the patient's medical record. [X]The patient's advanced care plan is not present because: [X]I confirmed today that the patient does not wish or was not able to name a surrogate decision maker or provide an advance care plan. [X] I have utilized all available immediate resources to obtain, update, or review of the patient's current medications [X] The patient is not eligible for med reconciliation; the patient is an emergent medical situation where delaying treatment would jeopardize the patient's health. [X] The patient has current or prior documentation of the left ventricular ejection fraction (LEVF) less than 40% or moderate or severely depressed left ventricular systolic function. [X] No COVID-19 COVID-19 status: Negative Result date/Date tested (Pos, Neg/Pending): 02/10/21 Time Spent With Patient Critical Care time: I spent a total of [] minutes of critical care time on this patient's care today; this time is exclusive of procedural time. Scores GCS [place] coma scale eye opening: To sound Alex coma scale verbal response: Confused [place] coma scale motor response: Localising [place] coma scale total score: 12 Wells' Criteria for PE Clinical signs and symptoms of DVT: No PE is #1 Dx or equally likely: No Heart rate > 100: Yes Immobilization at least 3 days or surg in previous 4 weeks: No History of PE or DVT: No Hemoptysis: No Malignancy w/Treatment within 6 months or palliative: No Wells' PE Score total: 1.5 Quality VTE Deep Vein Thrombosis/Pulmonary Embolism Present on Admission: No
[2021-02-10 06:41] LABS: Neutrophils Absolute Manual 12090 /uL (3000-5900); Nucleated Red Blood Cells 1 #/Diff; Total Cells Counted 100
[2021-02-10 06:44] LABS: Macrocytosis 2+
[2021-02-10] MEDS: LACTATED RINGERS 1,000 ML 150 ML IV (06:52)
[2021-02-10 07:49] LABS: Hemoglobin A1C% w Est Avg Glu > 14.0 % (4.0-6.0)
[2021-02-10 08:17] LABS: Appearance Urine UA CLEAR; Bilirubin Urine UA NEGATIVE (NEGATIVE); Color Urine UA YELLOW; Glucose Urine UA 2+ g/dL (Negative); Ketones Urine UA 3+ (NEGATIVE); Leukocyte Esterase Urine UA NEGATIVE (NEGATIVE); Nitrite Urine UA NEGATIVE (Negative); Occult Blood Urine UA TRACE-LYSED (Negative); Protein Urine UA TRACE (Negative); Urobilinogen Urine UA 0.2 E.U./dL (0.2)
[2021-02-10] MEDS: levoFLOXacin 250 MG TABLET 500 MG PO (09:05)
[2021-02-10 09:33] LABS: Bacteria Urine None Seen; RBC Urine None Seen (0-5/HPF); Squamous Epithelial Cell Urine 0-1 /HPF (0-5/HPF); WBC Urine 0-1/HPF (0-5/HPF)
[2021-02-10 09:34] LABS: Culture Indicated Urine Cult Not Indicated
--- NOTE | 2021-02-10 09:34 | P.TELICUPN_ITS ---
Subjective Subjective :: This patient was seen via real time interactive two-way audiovisual telecommunication. Admitted early this morning for severe DKA. On insulin and IVF. Started on abx with no overt infectious source identified. Pending PIV placement and labs drawn. Ordered 2 liters LR bolus. Current Medications Current Medications Medications: Home Medications glucose 4 gram chewable tablet 4 gram PO Q15M PRN #30 tab 12/12/18 [Rx Confirmed 02/10/21] glucagon (human recombinant) 1 mg solution for injection (Glucagon Emergency Kit) 1 mg SUBCUT DIRECTED 02/16/19 [History Confirmed 02/10/21] insulin degludec 200 unit/mL (3 mL) subcutaneous pen 53 unit SUBCUT 1100 11/21/19 [History Confirmed 02/10/21] insulin aspart U-100 100 unit/mL (3 mL) subcutaneous pen (Novolog Flexpen U-100 Insulin aspart) 10 unit SUBCUT AC 05/20/20 [History Confirmed 02/10/21] diphenhydramine HCl 50 mg capsule 50 mg PO BEDTIME PRN 09/29/20 [History Confirmed 02/10/21] Visit Medications (administered) Generic Name Dose Route Start Last Admin Trade Name Freq PRN Reason Stop Dose Admin Enoxaparin Sodium 40 mg 02/10/21 09:00 02/10/21 09:13 Enoxaparin 40 Mg/0.4 Ml Syringe SUBCUT Not Given DAILY BLAISE Lactated Ringer's 1,000 mls @ 150 mls/hr 02/10/21 07:00 02/10/21 06:52 Lactated Ringers IV 150 mls/hr CONT BLAISE Administration Objective Labs Result Diagrams: 02/10/21 01:30 02/10/21 03:30 Labs: Laboratory Results - last 24 hr 02/10/21 02/10/21 02/10/21 01:30 01:30 01:30 WBC 15.5 H RBC 4.37 Hgb 13.7 Hct 46.9 H MCV 107.2 H D MCH 31.3 MCHC 29.2 L D RDW 14.3 Plt Count 412 H Neut % (Auto) Not Reportable Lymph % (Auto) Not Reportable [place] % (Auto) Not Reportable Eos % (Auto) Not Reportable Baso % (Auto) Not Reportable Lymph # (Auto) Not Reportable [place] # (Auto) Not Reportable Baso # (Auto) Not Reportable Total Counted 100 Seg Neutrophils % 58.0 Band Neutrophils % 20.0 H Lymphocytes % (Manual) 16.0 L Monocytes % (Manual) 5.0 Basophils % (Manual) 1.0 Neutrophils # (Manual) 65196 H Nucleated RBCs 1 H RBC Morphology See below Macrocytosis 2+ H VBG pH VBG pCO2 VBG pO2 VBG HCO3 VBG Total CO2 VBG O2 Saturation VBG Base Excess Sodium 144 D Potassium 5.4 H D Chloride 101 Carbon Dioxide < 5 L* BUN 23 H Creatinine 1.20 H Estimated GFR 53.1 L BUN/Creatinine Ratio 19.2 Glucose 926 H* D Hemoglobin A1c Lactate 2.8 H Calcium 10.0 Total Bilirubin 0.4 AST 23 ALT 25 Alkaline Phosphatase 218 H D Total Protein 7.1 Albumin 4.6 Globulin 2.5 Albumin/Globulin Ratio 1.8 Procalcitonin 0.18 Urine Color Urine Appearance Urine pH Ur Specific [place] Urine Protein Urine Glucose (UA) Urine Ketones Urine Occult Blood Urine Nitrate Urine Bilirubin Urine Urobilinogen Ur Leukocyte Esterase Ketones 20.37 H Chlamy pneumoniae PCR Adenovirus (PCR) B. pertussis DNA (PCR) B.parapertussis DNA PCR Coronavirus OC43 (PCR) Coronavirus HKU1 (PCR) Coronavirus 229E (PCR) SARS-CoV-2 (PCR) Coronavirus NL63 (PCR) Human Metapneumovir PCR Influenza Type A (PCR) Influenza Type B (PCR) M. pneumoniae (PCR) Parainfluenza 1 (PCR) Parainfluenza 2 (PCR) Parainfluenza 3 (PCR) Parainfluenza 4 (PCR) RSV (PCR) Entero/Rhino (PCR) 02/10/21 02/10/21 02/10/21 01:30 02:30 03:01 WBC RBC Hgb Hct MCV MCH MCHC RDW Plt Count Neut % (Auto) Lymph % (Auto) [place] % (Auto) Eos % (Auto) Baso % (Auto) Lymph # (Auto) [place] # (Auto) Baso # (Auto) Total Counted Seg Neutrophils % Band Neutrophils % Lymphocytes % (Manual) Monocytes % (Manual) Basophils % (Manual) Neutrophils # (Manual) Nucleated RBCs RBC Morphology Macrocytosis VBG pH 6.90 L* VBG pCO2 14.9 L VBG pO2 61 H VBG HCO3 3 L VBG Total CO2 < 5 L VBG O2 Saturation 71 VBG Base Excess -30.0 L Sodium Potassium Chloride Carbon Dioxide BUN Creatinine Estimated GFR BUN/Creatinine Ratio Glucose Hemoglobin A1c > 14.0 H Lactate Calcium Total Bilirubin AST ALT Alkaline Phosphatase Total Protein Albumin Globulin Albumin/Globulin Ratio Procalcitonin Urine Color Urine Appearance Urine pH Ur Specific [place] Urine Protein Urine Glucose (UA) Urine Ketones Urine Occult Blood Urine Nitrate Urine Bilirubin Urine Urobilinogen Ur Leukocyte Esterase Ketones Chlamy pneumoniae PCR Not detected Adenovirus (PCR) Not detected B. pertussis DNA (PCR) Not detected B.parapertussis DNA PCR Not detected Coronavirus OC43 (PCR) Not detected Coronavirus HKU1 (PCR) Not detected Coronavirus 229E (PCR) Not detected SARS-CoV-2 (PCR) Not detected Coronavirus NL63 (PCR) Not detected Human Metapneumovir PCR Not detected Influenza Type A (PCR) Not detected Influenza Type B (PCR) Not detected M. pneumoniae (PCR) Not detected Parainfluenza 1 (PCR) Not detected Parainfluenza 2 (PCR) Not detected Parainfluenza 3 (PCR) Not detected Parainfluenza 4 (PCR) Not detected RSV (PCR) Not detected Entero/Rhino (PCR) Not detected 02/10/21 02/10/21 03:30 07:40 WBC RBC Hgb Hct MCV MCH MCHC RDW Plt Count Neut % (Auto) Lymph % (Auto) [place] % (Auto) Eos % (Auto) Baso % (Auto) Lymph # (Auto) [place] # (Auto) Baso # (Auto) Total Counted Seg Neutrophils % Band Neutrophils % Lymphocytes % (Manual) Monocytes % (Manual) Basophils % (Manual) Neutrophils # (Manual) Nucleated RBCs RBC Morphology Macrocytosis VBG pH VBG pCO2 VBG pO2 VBG HCO3 VBG Total CO2 VBG O2 Saturation VBG Base Excess Sodium Potassium Chloride Carbon Dioxide BUN Creatinine Estimated GFR BUN/Creatinine Ratio Glucose 836 H* Hemoglobin A1c Lactate Calcium Total Bilirubin AST ALT Alkaline Phosphatase Total Protein Albumin Globulin Albumin/Globulin Ratio Procalcitonin Urine Color Yellow Urine Appearance Clear Urine pH 5.0 Ur Specific [place] 1.010 Urine Protein Trace H Urine Glucose (UA) 2+ H Urine Ketones 3+ H Urine Occult Blood Trace-lysed Urine Nitrate Negative Urine Bilirubin Negative Urine Urobilinogen 0.2 Ur Leukocyte Esterase Negative Ketones Chlamy pneumoniae PCR Adenovirus (PCR) B. pertussis DNA (PCR) B.parapertussis DNA PCR Coronavirus OC43 (PCR) Coronavirus HKU1 (PCR) Coronavirus 229E (PCR) SARS-CoV-2 (PCR) Coronavirus NL63 (PCR) Human Metapneumovir PCR Influenza Type A (PCR) Influenza Type B (PCR) M. pneumoniae (PCR) Parainfluenza 1 (PCR) Parainfluenza 2 (PCR) Parainfluenza 3 (PCR) Parainfluenza 4 (PCR) RSV (PCR) Entero/Rhino (PCR) Exam Vital Signs (past 8 hours): - 02/10/21 02:07 02/10/21 02:30 02/10/21 03:00 Temperature Pulse Rate 123 H 120 H 119 H Respiratory Rate 22 19 19 Blood Pressure Pulse Oximetry 100 02/10/21 03:30 02/10/21 03:45 02/10/21 04:00 Temperature 97.0 F L Pulse Rate 120 H 122 H 125 H Respiratory Rate 19 20 18 Blood Pressure 99/58 L 103/57 L Pulse Oximetry 100 100 02/10/21 05:00 02/10/21 05:15 02/10/21 05:30 Temperature Pulse Rate 123 H 123 H 122 H Respiratory Rate 16 18 17 Blood Pressure 91/59 L Pulse Oximetry 100 100 100 02/10/21 06:00 02/10/21 07:00 02/10/21 08:00 Temperature 98 F 97.8 F Pulse Rate 121 H 125 H 118 H Respiratory Rate 12 14 14 Blood Pressure 97/57 L 98/70 102/69 Pulse Oximetry 100 100 100 02/10/21 09:00 Temperature Pulse Rate 117 H Respiratory Rate 12 Blood Pressure 94/53 L Pulse Oximetry 100 Oxygen Delivery Method Room Air Oxygen Flow Rate 0 Quality TeleICU VTE Deep Vein Thrombosis/Pulmonary Embolism Present on Admission: No Assessment & Plan Assessment & Plan narrative: # Severe DKA -- Secondary to noncompliance -- On insulin infusion per DKA protocol -- Ordered 2 liters LR bolus -- Check lipase and troponin -- Check renal panel, VBG and Mg every 4 hours -- High lytes goal # SIRS -- No overt infectious source identified -- UA not supportive of UTI -- Consider etiology to be secondary to severe DKA -- Monitor off abx Case d/w pharmacist and RN at bedside. Time Spent With Patient Critical Care time: I spent a total of [] minutes of critical care time on this patient's care today; this time is exclusive of procedural time.
--- NOTE | 2021-02-10 10:29 | DI.RAD.S_ITS ---
PROCEDURE: XR CHEST 1V INDICATIONS: PICC placement TECHNIQUE: One view of the chest was acquired. COMPARISON: [facility], , XR CHEST 1V, 02/10/2021, 1:35. FINDINGS: Surgical changes and devices: A left PICC line is seen with tip overlying the lower SVC region. Lungs and pleura: Lungs are clear. No pleural effusions or pneumothorax. Mediastinum: Mediastinal contours appear normal. Heart size is normal. Bones and chest wall: No suspicious bony lesions. Overlying soft tissues appear unremarkable. IMPRESSION: No acute cardiopulmonary abnormality. Dictated by: Stanley Mata M.D. on 02/10/2021 at 10:54 Approved by: Stanley Mata M.D. on 02/10/2021 at 10:55
[2021-02-10] MEDS: LACTATED RINGERS 2,000 ML 1000 ML IV (11:05)
[2021-02-10] MEDS: PANTOPRAZOLE 40 MG VIAL IV (11:06)
[2021-02-10] MEDS: cefTRIAXone 1,000 MG in SODIUM CHLORIDE 0.9% 100 ML 200 ML IV (11:07)
[2021-02-10] MEDS: DEXTROSE 5%-LACTATED RINGERS 1,000 ML 150 ML IV (11:09)
[2021-02-10 11:13] LABS: HCO3 VBG 21 mmol/L (23-28); PO2 VBG 38 mmHg (35-45); Total CO2 VBG 22 mmol/L (24-29); pH VBG 7.38 (7.33-7.43)
[2021-02-10 11:14] LABS: Oxygen Saturation VBG 72 % (70-75)
[2021-02-10 11:36] LABS: Lipase 36 U/L (23-300)
[2021-02-10 11:37] LABS: BUN Creatinine Ratio 35.9 (6-22); Blood Urea Nitrogen 23 mg/dL (7-17); Calcium 9.4 mg/dL (8.4-10.2); Carbon Dioxide 21 mmol/L (22-32); Chloride 110 mmol/L (98-107); Estimated Glomerular Filt Rate > 60.0 mL/min (>60); Glucose 211 mg/dL (70-100); HEMOLYSIS < 15 (0-50); Lactate (Lactic Acid) 1.7 mmol/L (0.7-2.1); Potassium 3.7 mmol/L (3.4-5.1); Sodium 146 mmol/L (137-145)
[2021-02-10 11:49] LABS: Troponin I < 0.012 ng/mL (0.01-0.034)
[2021-02-10] MEDS: POTASSIUM CHLORIDE IN WATER 10 MEQ/100 ML PIGGYBACK 100 MEQ IV ×4 (12:05→15:16)
--- NOTE | 2021-02-10 12:21 | PC.NURSE ---
Dr. Servin rounded. Reported 1100 labs. Discussed VS, abx, insulin needs. Reported pt would like some ice and broth. Dr. Servin states ok for ice chips and broth.
[2021-02-10] MEDS: INSULIN SUBCUT (13:33)
[2021-02-10] MEDS: INSULIN DEGLUDEC 200 UNIT/ML SUBCUT (13:33)
--- NOTE | 2021-02-10 14:01 | CM.SWNOTE ---
DCP Assessment Note Patient is 31 y/o female admitted to due to DKA. Patient has history of Type I Diabetes. Patient's PCP is Dr. Lua. Patient has [employer] and Medicaid insurance DRILL SETUP OPERATOR enters room to meet with patient, DRILL SETUP OPERATOR introduces self. Patient presents as drowsy and endorses stomach pain. Patient is A/O. Patient does not want to engage in thorough conversation at this time due to her reported discomfort. Patient endorses she residers with her partner and not with her mother. DRILL SETUP OPERATOR discusses that DRILL SETUP OPERATOR has been trying to get a hold of patient to inform patient of the Community Fill Manager program. Patient endorses that she is not interested in this program and would rather come to the hospital if needed. Patient endorses she does not need to come to the hospital when she takes her insulin. DRILL SETUP OPERATOR discusses Diabetes education classes and patient declines and denies interest in participating. DRILL SETUP OPERATOR asks about the [employer] CM referral and patient endorses that the CM reached out to her. DRILL SETUP OPERATOR encourages continued f/u with [facility] CM. Patient declines any further resources or support at this time. Plan: Patient to d/c to home with family when medically clear. RAYMOND Anderson Discharge Planning/Care Management CM Discharge Assessment Start: 02/10/21 13:57 Freq: Status: Active Protocol: Document 02/10/21 13:58 LN (Rec: 02/10/21 14:01 LN [id number]) Discharge Planning Assessment Assigned Treating Plant Operator RAYMOND Shultz/RAYMOND Lino Advance Directives? No Advance Directives on File No History Provided By Patient,Medical Record Has Patient been admitted in last 30 Yes days? Comment Patient discharged from the ICU on 02/07/21. Patient is frequently admitted for DKA. Prior Living Arrangements House Household Members family Type of transporation used prior to Relies on Others admit Independent with ADL's Yes Is patient alert and oriented? Yes Comment PCP is Dr. Limon at [facility] ph# . Discharge Plan Home Transportation Arrangement Patient reports that her fiance/Reggie or Mother will provide transport home. Referrals Initiated Other Additional Comment Pt goes to [facility] for non-healing scalp wound Please Provide Date Initial DC 02/10/21 Assessment Was Performed Next Review Type Continued Stay Review
[2021-02-10 16:53] LABS: BUN Creatinine Ratio 42.9 (6-22); Blood Urea Nitrogen 18 mg/dL (7-17); Calcium 8.5 mg/dL (8.4-10.2); Carbon Dioxide 27 mmol/L (22-32); Chloride 105 mmol/L (98-107); Estimated Glomerular Filt Rate > 60.0 mL/min (>60); Glucose 266 mg/dL (70-100); HEMOLYSIS < 15 (0-50); Potassium 4.9 mmol/L (3.4-5.1); Sodium 136 mmol/L (137-145)
[2021-02-10] MEDS: INSULIN LISPRO 100 UNIT/ML 3ML VIAL SUBCUT ×2 (17:39→20:47)
--- NOTE | 2021-02-11 00:13 | PM.ICURNDS ---
- Date Patient Seen: 02/11/21 Time Patient Seen: 00:10 :: This patient was seen via real time interactive two-way audiovisual telecommunication. Note: Patient was taken off DKA protocol earlier this shift. Case discussed during rounds earlier this shift. Patient is lying in bed in no acute distress; she has been downgraded.
[2021-02-11 04:00] VITALS: BP 102/62; PULSE 101; RESP 16; TEMP 36.7; O2SAT 96
[2021-02-11 05:53] LABS: Add Manual Diff / Slide Review NO; Basophils Absolute Auto 100 /uL (0-100); Basophils Percent Auto 0.8 % (0-2); Eosinophils Absolute Auto 100 /uL (0-450); Eosinophils Percent Auto 0.7 % (2-4); Hematocrit 29.6 % (36-46); Hemoglobin 10.4 g/dL (12.0-16.0); Lymphocytes Absolute Auto 2000 /uL (1100-4500); Lymphocytes Percent Auto 22.7 % (25-40); Mean Corpuscular HGB Conc 35.2 % (30-36); Mean Corpuscular Hemoglobin 32.3 PG (26-34); Mean Corpuscular Volume 91.7 fL (80-100); Monocytes Absolute Auto 500 /uL (0-900); Monocytes Percent Auto 6.1 % (3-14); Neutrophils Absolute Auto 6000 /uL (1500-7000); Neutrophils Percent Auto 69.7 % (50-75); Platelet Count 238 X10^3/uL (150-400); Red Blood Cell Count 3.23 X10^6/uL (4.0-5.2); Red Cell Distribution Width 13.1 % (11.6-14.8); White Blood Cell Count 8.6 X10^3/uL (4.5-11.0)
[2021-02-11 05:58] LABS: BUN Creatinine Ratio 40.7 (6-22); Blood Urea Nitrogen 24 mg/dL (7-17); Calcium 8.8 mg/dL (8.4-10.2); Carbon Dioxide 27 mmol/L (22-32); Chloride 106 mmol/L (98-107); Estimated Glomerular Filt Rate > 60.0 mL/min (>60); Glucose 90 mg/dL (70-100); HEMOLYSIS < 15 (0-50); Potassium 3.9 mmol/L (3.4-5.1); Sodium 137 mmol/L (137-145)
[2021-02-11 08:00] VITALS: BP 121/77; PULSE 101; RESP 12; TEMP 36.8; O2SAT 100
--- NOTE | 2021-02-11 08:06 | DIET.PN1 ---
Dietary Progress Note Please note: Pt and Post Tronic Machine Operator have been talking via phone since last admission. Pt has outpatient DM appointment set up for Feb 15 as pt desires CGM and our CDE can assist pt in increasing BG management compliance to qualify for this. Ht: 154.94 cm Wt: 43.5 kg BMI: 16.6 UBW: Last BM: 02/09/21 (02/10/21 04:38) MNA: 8 Carmelo Score: 21 Diet: 02/10/21 Lunch Carbohydrate Consistent Diet Diet Modifications: Carbohydrate level: Medium (3 CHO) Nutrition Percent Meal Consumed 75% 02/10/21 18:14 Percent Meal Consumed 100% 02/10/21 14:57 Percent Meal Consumed 75% 02/10/21 14:35 Percent Meal Consumed broth 02/10/21 13:35 Percent Meal Consumed NPO 02/10/21 12:00 Percent Meal Consumed NPO 02/10/21 08:00 Labs: RBC 3.23 X10^6/uL (4.0-5.2) L 02/11/21 05:40 Hgb 10.4 g/dL (12.0-16.0) L 02/11/21 05:40 Hct 29.6 % (36-46) L 02/11/21 05:40 Creatinine 0.59 mg/dL (0.52-1.04) 02/11/21 05:40 Hemoglobin A1c > 14.0 % (4.0-6.0) H 02/10/21 01:30 Lactate 1.7 mmol/L (0.7-2.1) 02/10/21 11:08 Nutrition Diagnosis: Severe Acute on Chronic Protein Calorie Malnutrition r/t DMT1 non-compliance aeb pt admitted to ICU for DKA with BG >700, A1c >14 x2+y, BMI 16.7 (severe for age), pt with positive urine ketones, pt agreeable to outpatient management but without follow through. Monitoring/Evaluations: Pt to attend outpatient DM ed next week at . Electronically Signed by: Ellen Kumari 02/11/21 08:06 Clinical Diet[address] [address]
[2021-02-11] MEDS: INSULIN DEGLUDEC 200 UNIT/ML SUBCUT (10:31)
[2021-02-11] MEDS: INSULIN SUBCUT (10:31)
--- NOTE | 2021-02-11 11:11 | PM.DS.1 ---
History of Present Illness History of Present Illness Chief complaint: Diabetic ketoacidosis Narrative: Per Doris Scruggs: Romi Jimenes is a 31-year-old type 1 diabetic female well known to staff with a ongoing history admissions for diabetic ketoacidosis, was in her usual state of health when her significant other returned home from work and found her appearing very dehydrated and very out of it. She is unable to provide a history as she appears to be quite confused. Per her significant other she does eat when he is at home with her but does not know what her eating habits are when he is out. Patient did state she was very hungry and did not recall eating at all on the day prior to admission. She told me that she took her insulin but could not tell me what time or how much. The patient was recently admitted on February 07 and discharged next day for the same thing and has had multiple admissions over the past 2 years for diabetic ketoacidosis. Patient is unable to provide me with the review of systems. In the emergency department they started her on an insulin drip without a bolus. At that time she was reported to have Kussmaul pattern breathing. She is afebrile, blood pressure 97/57, heart rate 121, respiratory rate of 12 oxygen saturation of 100% on room air. WBC is 15.5, hematocrit is 46.9, platelet count is 412, VBG pH was 6.9, VBG pCO2 was 14.9, VBG PO2 was 61, VBG bicarb was 3, VBG total CO2 was less than 5, VBG O2 saturation was 71% and I calculated the anion gap to be 39. Sodium was 144, potassium 5.4, chloride 101, bicarb less than 5, BUN 23, creatinine 1.20 which is greater than her baseline with a EGFR 53.1, glucose 836, lactate 2.8, alk-phos 218, and COVID-19 PCR was negative. Discharge Providers Provider Date of admission: 02/10/21 02:49 Discharge Date: 02/11/21 Primary care physician: Maria Ines Limon DO Consults: 02/10/21 02:54 Consult to Tele-high school library media specialist Routine Comment: Consulting Provider: Jerome Tele-intensivists Reason for consultation: Crm System Administrator services 02/10/21 04:02 Consult After Hours PICC Line RN Routine Comment: 02/10/21 05:04 Consult to Dietitian, Adult Routine Comment: Reason For Exam: weight loss 02/10/21 06:23 Consult to ETCHER HAND - Credit Assistant Routine Comment: Arvindq admits for DKA, need for supervised setting? Consult to Physician Routine Comment: Consulting Provider: Alberto Alvarez Reason for consultation: Arvindq admits for DKA, recommended outpatient follow-up with Psychiatry Has provider been notified: No Discharge provider: Ky Sauer MD Summary Hospital Course Discharge Diagnosis: 1. DKA Hospital Course: Ms. Jimenes was admitted with DKA. She was discharged days earlier. She was unable to state if she took her insulin. She is not sure why she started feeling well, she felt primarily thirsty. She was placed on insulin drip and given IV fluids. She improved. She was restarted on her home medications. Her blood sugar improved significantly. She felt improved and was tolerating food. She was discharged home and encouraged to follow up with endocrinology. Exam Vital Signs (past 8 hours): Oxygen Delivery Method Room Air Oxygen Flow Rate 0 Narrative Exam Narrative: GEN: no acute distress HEENT: moist mucous membranes CV: regular rate and rhythm ABD: soft, nontender, nondistended Objective Labs Result Diagrams: 02/11/21 05:40 02/11/21 05:40 [facility] Medical History DKA (diabetic ketoacidoses) History of pyelonephritis Irregular menstrual cycle Migraine headache Nephrolithiasis Type 1 diabetes mellitus Surgical History History of ureter stent Hx of cataract surgery Hx of local excision of skin lesion Status post laser lithotripsy of ureteral calculus [place] teeth extracted Family History Father In good health Mother Cardiac disease Social History details: Engaged household members: family Smoking Status: Never smoker alcohol intake: never Discharge Plan Discharge Plan Patient Disposition: Home Provider Discharge Comment: Ms. Jimenes was admitted with DKA. She received IV fluids and insulin. She improved. She was monitored on her home regimen and her blood sugar remained controlled. She has referrals to endocrine and to pointing machine operator. Please follow up with your PCP this next week. Discharge orders & Medications Prescriptions: Continued glucose 4 gram tablet,chewable 4 gram PO Q15M PRN (Reason: hypoglycemia) Qty: 30 RF: 0 Glucagon Emergency Kit (human) 1 mg recon soln 1 mg subcut DIRECTED RF: 0 insulin degludec 200 unit/mL (3 mL) Insulin Pen 53 unit SUBCUT 1100 RF: 0 insulin aspart U-100 [Novolog Flexpen U-100 Insulin] 100 unit/mL (3 mL) insulin pen 10 unit SUBCUT AC RF: 0 diphenhydramine HCl 50 mg Capsule 50 mg PO BEDTIME PRN (Reason: Sleep) RF: 0 Follow up/Referrals: Maria Ines Limon DO [Primary Care Provider] - Discharge Data Primary Care Provider: Maria Ines Limon Quality VTE Deep Vein Thrombosis/Pulmonary Embolism Present on Admission: No
[2021-02-11 12:00] VITALS: BP 106/69; PULSE 98; RESP 14; TEMP 36.6; O2SAT 97
[2021-02-11] MEDS: INSULIN LISPRO 100 UNIT/ML 3ML VIAL SUBCUT (12:10)
--- NOTE | 2021-02-11 12:52 | CM.DPC ---
DCP Cont: Per MD, pt's blood sugars are normal and medically stable to d/c home today with no identified barriers to discharge. Per RN, steward/stewardess second confirmed that pt has dietary appt scheduled for this Wed to follow up on diet recommendations towards getting pt's preferred diabetic med/options for hopeful better management of her uncontrolled diabetes. Pt is agreeable to d/c home and has transport. Plan: Patient to d/c home today and have dietary follow up appt this week towards better management of her diabetes and health. RAYMOND Roman
--- NOTE | 2021-02-11 14:10 | PC.NURSE ---
Patient given discharge instructions to f/u with DM educator and ethernet network architect, patient verbalized understanding. PICC removed, IV removed, patient up to BSC for void. Dressed self. Patient denies further needs. Personal insulin pen returned to patient. Fiance up to to drive patient home. Patient discharged via wheelchair without complications.
== END 2021-02-11 13:50 | disposition home or self-care (01) | DRG 637 ==
LOC: ED 02:46 → ICU 06:13 → AC 02-13 14:05 → ICU 02-13 14:05
PROVIDERS: Internal Medicine; Internal Medicine Pulmonary Disease; Admitting Provider Nurse Practitioner Family; Emergency Provider Emergency Medicine; PCP Student in an Organized Health Care Education/Training Program; Referring Provider Emergency Medicine; Visit Provider Nurse Practitioner Family
DX: E10.10 Type 1 diabetes mellitus with ketoacidosis without coma (principal); E43 Unspecified severe protein-calorie malnutrition; R65.10 Systemic inflammatory response syndrome (SIRS) of non-infectious origin without acute organ dysfunction; Z68.1 Body mass index [BMI] 19.9 or less, adult; Z79.4 Long term (current) use of insulin; Z91.19 Patient's noncompliance with other medical treatment and regimen; Z20.822 Contact with and (suspected) exposure to COVID-19
CPT/HCPCS: 36415; 36569; 71045; 80048; 80053; 81001; 82009; 82805; 82947; 82962; 83036; 83605; 83690; 84145; 84484; 85007; 85025; 87040; 87633; 93005; 93010; 96360; 96361; 99284; C9113; J0696; J1650; J1815; J7121

== ENCOUNTER → 2021-02-15 14:41 | Outpatient (CLI) | payer OTHER, MEDICAID, SELFPAY ==
[2021-02-10 04:38] VITALS: BMI 16.6
--- NOTE | 2021-02-17 15:46 | DIAB.INIT ---
Initial Diabetes Education Assessment Name: Sarabjit Jimenes Date: 02/15/21 Time: 3-4p Dx: Type 1 Diabetes Provider: Ashly Whipple presents to initial diabetes education visit with her mother, Argelia. States she has never seen a perioperative educator. Wants pump and CGM technology. Per her report, she was using tech for two years with success but then the machine started malfunctioning. States she was under the care of Dr. Adonis Hernandez. Sarabjit states her current PCP is on maternity leave and does not manage pumps. She has referred her to endo. She has rx'd a Dexcom CGM to [facility] (after our appt this [facility] found that this pharmacy cannot accommodate this. She needs to fill this rx at [facility]. PCP has referred her to endo, but Sarabjit reports she is unable to get scheduled. Potential h/o frequent no-shows. Discussed Sarabjit's care with Dr. Hernandez after our appointment in order to find a provider that could manage her technology. Possibly Dr. Wang per his rec. Dr. Hernandez (and social workers at ) have reported most of her barriers are social when it comes to managing her T1DM. She has had multiple admissions to for DKA. Sarabjit reports taking humalog or novolog 7 u TID + SSI. Reports difficulty with numbers and carb counting. Open to using a small, med, large meal approach for dosing. Also reports 42u Tresiba in the morning. Numbers are consistently elevated per report, see SMBG. Further, she is in a state of chronic malnutrition r/t hyperglycemia c T1DM. She is very concerned about having low BG, though this happens once q couple months and BG are very high usually. Anthropometrics: Ht: 61 Wt: 95.7# last wt during admission Reported wt goal: 110#; states it is hard to gain weight, which is a result of hyperglycemia. Unclear if omission of insulin is an effort to maintain low weight or other social consideration. Physical Activity: None Self-Monitoring Blood Glucose: Did not bring BG. Does finger pricks prior to meals. No CGM. Reports FBG usually in 250s, though today was 80 mg/dL. States her ac lunch and dinner readings often 310-400 mg/dL or too high for meter to report. Follows a correction scale of 1:50 units starting with 3u for BG [id number]/dL. No I:C ratio. Diabetes Medications: Humalog or Novolog 7u plus correction Tresiba: 42u Pertinent Labs: HgA1c >14% 02/10/21 Past Medical History: (Last Reviewed 02/10/21 @ 06:16 by SHARYN Hurd) DKA (diabetic ketoacidoses) History of pyelonephritis History of ureter stent Hx of cataract surgery 10/06 right eye Hx of local excision of skin lesion Scalp lesion Irregular menstrual cycle Migraine headache Nephrolithiasis Status post laser lithotripsy of ureteral calculus Type 1 diabetes mellitus [place] teeth extracted Intervention: This participant was very receptive. Provided appropriate educational handouts. Discussed the following topics: Completed intake assessment. Discussed barriers to care. Pathophysiology of type 1 diabetes Recent HgA1c CGM technology Hyperglycemia impact on goal of weight Macronutrient pairing and idea of dosing according to meal size Created SMART goals for patient self-care and success. Goals: Have protein with meals and snacks Bring meter next visit Consider food log Follow-up: ANDI ARIZMENDI follow-up in [address] to reach out to local endo and will call [facility] about meter pharmacy issue. Iliana Noguera RDN, KYLEIGH Certified Diabetes Care and Drywall Application Supervisor P: [phone] Thank you for this referral
== END ==
PROVIDERS: PCP Student in an Organized Health Care Education/Training Program; Referring Provider Student in an Organized Health Care Education/Training Program; Visit Provider Student in an Organized Health Care Education/Training Program
DX: E10.9 Type 1 diabetes mellitus without complications (principal); Z71.3 Dietary counseling and surveillance; Z79.4 Long term (current) use of insulin
CPT/HCPCS: G0108

== ENCOUNTER 2021-02-18 17:52 | Inpatient (IN) | payer MEDICAID, SELFPAY ==
[2021-02-10 04:38] VITALS: BMI 16.6
[2021-02-18] VITALS (10 sets, daily range): BP systolic 85–119; BP diastolic 54–76; PULSE 114–134; RESP 11–20; TEMP 36.4; O2SAT 96–100; BMI 16.0
[2021-02-18] MEDS: SODIUM CHLORIDE 0.9% 1,000 ML 1000 ML IV (18:10)
--- NOTE | 2021-02-18 18:14 | ED.WEAKNESS ---
HPI - Weakness General Chief complaint: Diabetic Problem Stated complaint: Doesn't Feel Good Time Seen by Provider: 02/18/21 18:01 Source: patient Mode of arrival: Wheelchair Limitations: no limitations History of Present Illness HPI Narrative: Patient is a 31-year-old female noncompliant insulin-dependent diabetic presenting again in DKA with high glucose. She was discharged 7 days ago. Today with her fiance. He said that they have done an experiment where she lives at home with her mother which was done April to August, she moved back home in September with her fiance she is left at home alone frequently he works 60 hours a week he says that she has been admitted to the hospital 6 times since then, today is 7. She currently has a pH of 7.1 tachycardic with heart rate in the 130s. She is afebrile. She is complaining of overall body pain. She is offered Tylenol or Motrin for her pain at this time she opts not to have those. Related Data Home Medications Medication Instructions Recorded Confirmed glucagon (human recombinant) 1 mg 1 mg SUBCUT DIRECTED 02/16/19 02/10/21 solution for injection (Glucagon Emergency Kit) insulin degludec 200 unit/mL (3 53 unit SUBCUT 1100 11/21/19 02/10/21 mL) subcutaneous pen insulin aspart U-100 100 unit/mL 10 unit SUBCUT AC 05/20/20 02/10/21 (3 mL) subcutaneous pen (Novolog Flexpen U-100 Insulin aspart) diphenhydramine HCl 50 mg capsule 50 mg PO BEDTIME PRN 09/29/20 02/10/21 Previous Rx's Medication Instructions Recorded glucose 4 gram chewable tablet 4 gram PO Q15M PRN #30 tab 12/12/18 Allergies Allergy/AdvReac Type Severity Reaction Status Date / Time abdalla [ABDALLA] Allergy Intermediate Hives, Verified 02/18/21 18:05 pruritus iodine [IODINE] Allergy Intermediate rash, itchy Verified 02/18/21 18:05 morphine Allergy Intermediate Difficulty Verified 02/18/21 18:05 Breathing shellfish derived Allergy Intermediate rash Verified 02/18/21 18:05 [SHELLFISH DERIVED] adhesive [ADHESIVE] Allergy Unknown tape Verified 02/18/21 18:05 latex [LATEX] Allergy Unknown Hives Verified 02/18/21 18:05 Review of Systems Review of Systems Narrative: GENERAL: Denies chills, fatigue, malaise, fever, sweats, travel HEENT: Denies sinus pain, ear pain, sore throat, difficulty swallowing, neck pain RESPIRATORY: Denies dyspnea, cough, wheezing, hemoptysis, sputum. CARDIOVASCULAR: Denies chest pain, palpitations, orthopnea, edema GASTROINTESTINAL: Denies nausea, vomiting, abdominal pain, diarrhea, constipation, melena. : Denies dysuria, frequency, incontinence, hematuria, urinary retention, flank pain. MUSCULOSKELETAL: All over body SKIN: No rash, no erythema, no pruritus NEUROLOGIC: Denies weakness, dizziness, headache, numbness, change in speech, confusion PSYCHIATRIC: No concerning psychosocial issues. 12 point review of systems is negative except for those stated above and HPI Patient History Medical History (Updated 02/18/21 @ 21:42 by DON Vicente) DKA (diabetic ketoacidoses) History of pyelonephritis Irregular menstrual cycle Migraine headache Nephrolithiasis Noncompliance w/medication treatment due to intermit use of medication Type 1 diabetes mellitus Surgical History History of ureter stent Hx of cataract surgery Hx of local excision of skin lesion Status post laser lithotripsy of ureteral calculus [place] teeth extracted Family History Father In good health Mother Cardiac disease Social History details: Engaged household members: family Smoking Status: Never smoker alcohol intake: never Smoking Status: Never smoker alcohol intake frequency: holidays/special occasions only Substance Use Type: does not use Exam Initial Vital Signs Initial Vital Signs: Vital Signs Pulse Rate 134 H 02/18/21 17:59 Respiratory Rate 20 02/18/21 17:59 Blood Pressure 99/68 02/18/21 17:59 Pulse Oximetry 100 02/18/21 17:59 GENERAL: Very thin tearful 31-year-old female HEENT: Head atraumatic,EOMI, pupils reactive, face symmetric, dry mucous membranes CARDIOVASCULAR: Tachycardic regular RESPIRATORY: Breath sounds equal bilaterally, no wheezes rales or rhonchi. ABDOMEN: Soft, nontender. Normoactive bowel sounds all 4 quadrants. No guarding or rebound. EXTREMITIES: Normal range of motion, no clubbing or edema. Neurovascularly intact NEUROLOGICAL: Alert and oriented x4.Normal gait and speech. SKIN: Warm, dry, no laceration, no petechiae, no rashes or lesions. Course Orders Ordered: ED Orders 02/18/21 18:04 Venous Blood Gas Stat EKG-12 Lead Stat 02/18/21 18:11 Complete Blood Count AUTO DIFF Stat Comprehensive Metabolic Panel Stat Ketones (Beta-Hydroxybutyrate) Stat Lactate (Lactic Acid) Stat Procalcitonin Stat 02/18/21 18:20 COVID19 - ADMIT (MOWER SHARPENER swab/PCR) Stat 02/18/21 20:35 Blood Culture Stat Acetaminophen (Acetaminophen 325 Mg Tablet) 650 mg PO Q4HR PRN PRN Reason: Fever/Mild Pain (1-3) Dextrose (Dextrose 50 % In Water 25 Gm/50 Ml Syringe) 25 gm IV PRN PRN PRN Reason: Hypoglycemia INSULIN DRIP PREMIX (Myxredlin Drip Premix) 100 unit in 100 mls @ 6 mls/hr IV TITRATE BLAISE; Protocol Last Titration: 02/18/21 22:28 Dose: 10 ml/hr, 10 mls/hr Documented by: [email or web address] Cosigned by: POLI Titration: 02/18/21 20:09 Dose: 8 ml/hr, 8 mls/hr Documented by: [email or web address] Cosigned by: POLI Titration: 02/18/21 19:41 Dose: 6 ml/hr, 6 mls/hr Documented by: [email or web address] Cosigned by: POLI Titration: 02/18/21 19:39 Dose: 0 mls/hr Documented by: ANAMIKA Cosigned by: POLI Titration: 02/18/21 19:30 Dose: 6 ml/hr, 6 mls/hr Documented by: [email or web address] Cosigned by: POLI Admin: 02/18/21 19:18 Dose: 6 ml/hr, 6 mls/hr Documented by: ROGER Cosigned by: ANAMIKA Sodium Bicarbonate 75 meq/ (Sodium Chloride) 1,075 mls @ 125 mls/hr IV CONT BLAISE Insulin Glargine (Insulin Glargine 100 Unit/Ml 3ml Pen) 30 unit SUBCUT BID BLAISE Insulin Human Lispro (Insulin Lispro 100 Unit/Ml 3ml Vial) 0 unit SUBCUT ACHS BLAISE; Protocol Metoclopramide HCl (Metoclopramide 10 Mg/2 Ml Inj) 10 mg IV Q6HR PRN PRN Reason: Nausea And Vomiting Ondansetron HCl (Ondansetron 4 Mg/2 Ml Inj) 4 mg IV Q4HR PRN PRN Reason: Nausea And Vomiting Discontinued Medications Sodium Chloride (Normal Saline 0.9%) 1,000 mls @ 1,000 mls/hr IV BOLUS ONE Stop: 02/18/21 19:03 Last Infusion: 02/18/21 19:40 Dose: 0 mls/hr Documented by: Admin: 02/18/21 18:10 Dose: 1,000 mls/hr Documented by: ROGER Insulin Human Regular 100 unit (/ Sodium Chloride) 100 mls @ 6 mls/hr IV TITRATE BLAISE; Protocol Last Admin: 02/18/21 19:09 Dose: Not Given Documented by: ANAMIKA Sodium Bicarbonate 150 meq/ (Sterile Water) 1,000 mls @ 125 mls/hr IV CONT BLAISE Sodium Chloride (Normal Saline 0.9%) 1,000 mls @ 1,000 mls/hr IV BOLUS ONE Stop: 02/18/21 21:01 Sodium Chloride (Normal Saline 0.9%) 1,000 mls @ 1,000 mls/hr IV BOLUS ONE Stop: 02/18/21 21:13 Lactated Ringer's (Lactated Ringers) 1,000 mls @ 1,000 mls/hr IV BOLUS ONE Stop: 02/18/21 21:41 Last Admin: 02/18/21 22:22 Dose: 1,000 mls/hr Documented by: [email or web address] Lactated Ringer's (Lactated Ringers) 1,000 mls @ 1,000 mls/hr IV BOLUS ONE Stop: 02/18/21 21:44 Vital Signs Vital signs: Vital Signs - 8 hr 02/18/21 17:59 02/18/21 18:00 02/18/21 18:30 Temperature 97.6 F Pulse Rate 134 H 132 H 125 H Respiratory Rate 20 19 Blood Pressure 99/68 103/67 101/65 Pulse Oximetry 100 100 99 MDM - Weakness Lab Data Result diagrams: 02/18/21 18:11 02/18/21 18:11 Labs: Lab Results 02/18/21 02/18/21 02/18/21 Range/Units 18:04 18:11 18:11 WBC 12.3 H (4.5-11.0) X10^3/uL RBC 4.45 (4.0-5.2) X10^6/uL Hgb 14.2 (12.0-16.0) g/dL Hct 44.2 (36-46) % MCV 99.5 D (80-100) fL MCH 31.9 (26-34) PG MCHC 32.0 (30-36) % RDW 14.2 (11.6-14.8) % Plt Count 499 H (150-400) X10^3/uL Neut % (Auto) 75.5 H (50-75) % Lymph % (Auto) 16.0 L (25-40) % [place] % (Auto) 7.4 (3-14) % Eos % (Auto) 0.0 L (2-4) % Baso % (Auto) 1.1 (0-2) % Neut # (Auto) 9300 H (5528-5147) /uL Lymph # (Auto) 2000 (6122-4255) /uL [place] # (Auto) 900 (0-900) /uL Eos # (Auto) 0 (0-450) /uL Baso # (Auto) 100 (0-100) /uL VBG pH 7.11 L* (7.33-7.43) VBG pCO2 16.1 L (45-50) mmHg VBG pO2 34 L (35-45) mmHg VBG HCO3 5 L (23-28) mmol/L VBG Total CO2 6 L (24-29) mmol/L VBG O2 Saturation 49 L (70-75) % VBG Base Excess -24.0 L (0-4) mmol/L Sodium 138 (137-145) mmol/L Potassium 5.4 H D (3.4-5.1) mmol/L Chloride 93 L (98-107) mmol/L Carbon Dioxide < 5 L* (22-32) mmol/L BUN 24 H (7-17) mg/dL Creatinine 1.01 (0.52-1.04) mg/dL Estimated GFR > 60.0 (>60) mL/min BUN/Creatinine Ratio 23.8 H (6-22) Glucose 846 H* D (70-100) mg/dL Hemoglobin A1c (4.0-6.0) % Lactate (0.7-2.1) mmol/L Calcium 9.9 (8.4-10.2) mg/dL Phosphorus (2.5-4.5) mg/dL Magnesium (1.6-2.3) mg/dL Total Bilirubin 0.7 (0.2-1.3) mg/dL AST 27 (14-36) IU/L ALT 43 H (<35) IU/L Alkaline Phosphatase 243 H (38-126) U/L Lactate Dehydrogenase (313-618) U/L Total Creatine Kinase (30-135) U/L Troponin I (0.01-0.034) ng/mL Total Protein 7.7 (6.3-8.2) g/dL Albumin 4.7 (3.5-5.0) g/dL Globulin 3.0 (1.7-4.1) g/dL Albumin/Globulin Ratio 1.6 (1.0-2.8) Lipase (23-300) U/L Procalcitonin 0.19 (<0.5) ng/mL Ketones 20.42 H (<0.27) mmol/L SARS-CoV-2 (PCR) (Negative) 02/18/21 02/18/21 02/18/21 Range/Units 18:11 18:11 18:11 WBC (4.5-11.0) X10^3/uL RBC (4.0-5.2) X10^6/uL Hgb (12.0-16.0) g/dL Hct (36-46) % MCV (80-100) fL MCH (26-34) PG MCHC (30-36) % RDW (11.6-14.8) % Plt Count (150-400) X10^3/uL Neut % (Auto) (50-75) % Lymph % (Auto) (25-40) % [place] % (Auto) (3-14) % Eos % (Auto) (2-4) % Baso % (Auto) (0-2) % Neut # (Auto) (9623-1766) /uL Lymph # (Auto) (1012-8698) /uL [place] # (Auto) (0-900) /uL Eos # (Auto) (0-450) /uL Baso # (Auto) (0-100) /uL VBG pH (7.33-7.43) VBG pCO2 (45-50) mmHg VBG pO2 (35-45) mmHg VBG HCO3 (23-28) mmol/L VBG Total CO2 (24-29) mmol/L VBG O2 Saturation (70-75) % VBG Base Excess (0-4) mmol/L Sodium (137-145) mmol/L Potassium (3.4-5.1) mmol/L Chloride (98-107) mmol/L Carbon Dioxide (22-32) mmol/L BUN (7-17) mg/dL Creatinine (0.52-1.04) mg/dL Estimated GFR (>60) mL/min BUN/Creatinine Ratio (6-22) Glucose (70-100) mg/dL Hemoglobin A1c > 14.0 H (4.0-6.0) % Lactate 2.3 H (0.7-2.1) mmol/L Calcium (8.4-10.2) mg/dL Phosphorus 7.9 H (2.5-4.5) mg/dL Magnesium 2.9 H (1.6-2.3) mg/dL Total Bilirubin (0.2-1.3) mg/dL AST (14-36) IU/L ALT (<35) IU/L Alkaline Phosphatase (38-126) U/L Lactate Dehydrogenase (313-618) U/L Total Creatine Kinase (30-135) U/L Troponin I < 0.012 (0.01-0.034) ng/mL Total Protein (6.3-8.2) g/dL Albumin (3.5-5.0) g/dL Globulin (1.7-4.1) g/dL Albumin/Globulin Ratio (1.0-2.8) Lipase 102 D (23-300) U/L Procalcitonin (<0.5) ng/mL Ketones (<0.27) mmol/L SARS-CoV-2 (PCR) (Negative) 02/18/21 02/18/21 Range/Units 18:11 18:20 WBC (4.5-11.0) X10^3/uL RBC (4.0-5.2) X10^6/uL Hgb (12.0-16.0) g/dL Hct (36-46) % MCV (80-100) fL MCH (26-34) PG MCHC (30-36) % RDW (11.6-14.8) % Plt Count (150-400) X10^3/uL Neut % (Auto) (50-75) % Lymph % (Auto) (25-40) % [place] % (Auto) (3-14) % Eos % (Auto) (2-4) % Baso % (Auto) (0-2) % Neut # (Auto) (9933-9073) /uL Lymph # (Auto) (6684-1647) /uL [place] # (Auto) (0-900) /uL Eos # (Auto) (0-450) /uL Baso # (Auto) (0-100) /uL VBG pH (7.33-7.43) VBG pCO2 (45-50) mmHg VBG pO2 (35-45) mmHg VBG HCO3 (23-28) mmol/L VBG Total CO2 (24-29) mmol/L VBG O2 Saturation (70-75) % VBG Base Excess (0-4) mmol/L Sodium (137-145) mmol/L Potassium (3.4-5.1) mmol/L Chloride (98-107) mmol/L Carbon Dioxide (22-32) mmol/L BUN (7-17) mg/dL Creatinine (0.52-1.04) mg/dL Estimated GFR (>60) mL/min BUN/Creatinine Ratio (6-22) Glucose (70-100) mg/dL Hemoglobin A1c (4.0-6.0) % Lactate (0.7-2.1) mmol/L Calcium (8.4-10.2) mg/dL Phosphorus (2.5-4.5) mg/dL Magnesium (1.6-2.3) mg/dL Total Bilirubin (0.2-1.3) mg/dL AST (14-36) IU/L ALT (<35) IU/L Alkaline Phosphatase (38-126) U/L Lactate Dehydrogenase 820 H (313-618) U/L Total Creatine Kinase 26 L (30-135) U/L Troponin I (0.01-0.034) ng/mL Total Protein (6.3-8.2) g/dL Albumin (3.5-5.0) g/dL Globulin (1.7-4.1) g/dL Albumin/Globulin Ratio (1.0-2.8) Lipase (23-300) U/L Procalcitonin (<0.5) ng/mL Ketones (<0.27) mmol/L SARS-CoV-2 (PCR) Negative (Negative) Point of Care Testing Glucose POC 500 MDM Narrative Medical decision making narrative: The patient is in DKA with glucose greater than 800 and anion gap 44. She is non compliant. She is started on insulin drip and normal saline bolus. Dr. Weinberg updated patient's symptoms test results he is quite familiar with patient happily accepted to the ICU. Discharge Plan Departure Patient Disposition: Admitted As Inpatient Clinical Impression: DKA (diabetic ketoacidoses) Qualifiers: Diabetes mellitus type: type 1 Admit Date/Time: 02/18/21 18:50 Admit Provider: Julio Cesar Weinberg
[2021-02-18 18:21] LABS: Add Manual Diff / Slide Review NO; Basophils Absolute Auto 100 /uL (0-100); Basophils Percent Auto 1.1 % (0-2); Eosinophils Absolute Auto 0 /uL (0-450); Hematocrit 44.2 % (36-46); Hemoglobin 14.2 g/dL (12.0-16.0); Lymphocytes Absolute Auto 2000 /uL (1100-4500); Mean Corpuscular Hemoglobin 31.9 PG (26-34); Mean Corpuscular Volume 99.5 fL (80-100); Monocytes Absolute Auto 900 /uL (0-900); Monocytes Percent Auto 7.4 % (3-14); Neutrophils Absolute Auto 9300 /uL (1500-7000); Neutrophils Percent Auto 75.5 % (50-75); Platelet Count 499 X10^3/uL (150-400); Red Blood Cell Count 4.45 X10^6/uL (4.0-5.2); Red Cell Distribution Width 14.2 % (11.6-14.8); White Blood Cell Count 12.3 X10^3/uL (4.5-11.0)
[2021-02-18 18:26] LABS: HCO3 VBG 5 mmol/L (23-28); PCO2 VBG 16.1 mmHg (45-50); PO2 VBG 34 mmHg (35-45); pH VBG 7.11 (7.33-7.43)
[2021-02-18 18:27] LABS: Oxygen Saturation VBG 49 % (70-75); Total CO2 VBG 6 mmol/L (24-29)
[2021-02-18 18:36] LABS: Alanine Aminotransferase 43 IU/L (<35); Albumin 4.7 g/dL (3.5-5.0); Albumin Globulin Ratio 1.6 (1.0-2.8); Alkaline Phosphatase 243 U/L (38-126); Aspartate Aminotransferase 27 IU/L (14-36); BUN Creatinine Ratio 23.8 (6-22); Bilirubin Total 0.7 mg/dL (0.2-1.3); Blood Urea Nitrogen 24 mg/dL (7-17); Calcium 9.9 mg/dL (8.4-10.2); Chloride 93 mmol/L (98-107); Estimated Glomerular Filt Rate > 60.0 mL/min (>60); Lactate (Lactic Acid) 2.3 mmol/L (0.7-2.1); Sodium 138 mmol/L (137-145); Total Protein 7.7 g/dL (6.3-8.2)
[2021-02-18 18:47] LABS: Potassium 5.4 mmol/L (3.4-5.1)
[2021-02-18 18:48] LABS: Glucose 846 mg/dL (70-100)
[2021-02-18 18:49] LABS: HEMOLYSIS 47 (0-50)
[2021-02-18 18:53] LABS: Carbon Dioxide < 5 mmol/L (22-32)
[2021-02-18 18:55] LABS: Procalcitonin 0.19 ng/mL (<0.5)
[2021-02-18 19:04] LABS: Ketones (Beta-Hydroxybutyrate) 20.42 mmol/L (<0.27)
[2021-02-18] MEDS: INSULIN DRIP PREMIX 100 UNIT/100 ML PLAST..BAG 6 UNIT IV (19:18)
[2021-02-18 19:30] LABS: COVID19 - ADMIT (NP swab/PCR) Negative (Negative)
[2021-02-18 20:15] LABS: Reflexed Lactate in 2 Hours Y
--- NOTE | 2021-02-18 20:21 | P.HP_ITS ---
History of Present Illness History of Present Illness Date Patient Seen: 02/18/21 Time Patient Seen: 20:21 Chief complaint: Doesn't Feel Good Narrative: Ms. Sarabjit Jimenes is a 31-year-old female patient with a history significant for poorly controlled type 1 diabetes, frequent admissions for DKA (Patient has had a total of 11 admits in 2020 with 4 stand-alone ER visits), migraines and irregular menstruation?who presents to the ED in DKA.? Presents today complaining that she is dehydrated and is again in DKA.? She states that she has been taking her insulin, she has not been sick recently she has been eating and drinking appropriately she has no complaints of diarrhea, dysuria, flank pain.? There are no skin complaints or findings.? She does not have any n eurologic complaints, or headache.?Patient does endorse vomiting x 1 yesterday. Main complaint is that she is very dry, body aches, and thirsty. She denies chest pain, shortness of breath, cough, nasal drainage, sore throat, headache, changes in vision, new or unusual weakness, nausea, abdominal pain, vomiting at this time, recent illness, injury, or trauma. She was discharged 7 days ago.? She is accompanied by her fiance today.? He reported in the ED that they have done an experiment where she lived at home with her mother April to August, she has since moved back in with her fiance in September. He reports that she is often left at home alone, as he works 60 hours a week he says that she has been admitted to the hospital multiple times since living with him. ? In ED pH of 7.1 tachycardic with heart rate in the 130s, afebrile.??[id number] She is offered Tylenol or Motrin for her pain at this time she opts not to have those. Upon admit to the floor patient continues to be tachycardic temp 97.6?, BP 101/65, HR 125, RR 19, O2 saturation 99% on room air. VBG: PH 7.11, pCO2 16.1, PO2 34, HC03 5, T CO2 6, O2 saturation 49%, BE -24. Patient demonstrates a gap of 40, which is much higher than previous visits. Patient meets SIRS and sepsis criteria.SOFA:1 12.3, neutrophils 9300, platelets 499. Potassium 5.4, chloride 93, HC03<5, BUN 24, 846, lactate 2.3, serum ketones 20.42. I personally reviewed patient's EKG from the ED sinus tachycardia with a rate of [address] and T-wave abnormalities possible lateral ischemia, and right atrial enlargement this is a change from last EKG on admission. Patient admitted for diabetic ketoacidosis, in a type 1 insulin-dependent diabetic. -The hospitalist service has consulted with her automobile or truck rental dispatcher 11/2020 during hospital admit, and he advised that her brittle DM issues are psych nature, not diabetic or endocrine driven. Though patient will verbalize on each admit that she is compliant with her insulins, on record A1C: [id number] have all been >14%.?Patient verbalized that she has not followed up with her automobile or truck rental dispatcher for some time. Patient History Medical History (Updated 02/18/21 @ 21:42 by DON Vicente) DKA (diabetic ketoacidoses) History of pyelonephritis Irregular menstrual cycle Migraine headache Nephrolithiasis Noncompliance w/medication treatment due to intermit use of medication Type 1 diabetes mellitus Surgical History History of ureter stent Hx of cataract surgery Hx of local excision of skin lesion Status post laser lithotripsy of ureteral calculus [place] teeth extracted Family & Social History Family History Father In good health Mother Cardiac disease Social History: household members family Safety & Behavioral: Feels Safe in Current Yes Environment Been Physically Hurt or No Threatened By a Person Tobacco & Substance use: Smoking Status Never smoker alcohol intake never alcohol intake frequency holiday/special occasion Substance Use Type does not use Meds Home Medications and Allergies Home Medications Medication Instructions Recorded Confirmed Type glucose 4 gram chewable tablet 4 gram PO Q15M PRN #30 tab 12/12/18 02/10/21 Rx glucagon (human recombinant) 1 mg 1 mg SUBCUT DIRECTED 02/16/19 02/10/21 History solution for injection (Glucagon Emergency Kit) insulin degludec 200 unit/mL (3 53 unit SUBCUT 1100 11/21/19 02/10/21 History mL) subcutaneous pen insulin aspart U-100 100 unit/mL 10 unit SUBCUT AC 05/20/20 02/10/21 History (3 mL) subcutaneous pen (Novolog Flexpen U-100 Insulin aspart) diphenhydramine HCl 50 mg capsule 50 mg PO BEDTIME PRN 09/29/20 02/10/21 History Allergies Allergy/AdvReac Type Severity Reaction Status Date / Time abdalla [ABDALLA] Allergy Intermediate Hives, Verified 02/18/21 18:05 pruritus iodine [IODINE] Allergy Intermediate rash, itchy Verified 02/18/21 18:05 morphine Allergy Intermediate Difficulty Verified 02/18/21 18:05 Breathing shellfish derived Allergy Intermediate rash Verified 02/18/21 18:05 [SHELLFISH DERIVED] adhesive [ADHESIVE] Allergy Unknown tape Verified 02/18/21 18:05 latex [LATEX] Allergy Unknown Hives Verified 02/18/21 18:05 Review of Systems Review of Systems Narrative: All 12 point systems reviewed with the patient and are negative except otherwise documented. Exam Vital Signs (past 8 hours): - 02/18/21 17:59 02/18/21 18:00 02/18/21 18:30 Temperature 97.6 F Pulse Rate 134 H 132 H 125 H Respiratory Rate 20 19 Blood Pressure 99/68 103/67 101/65 Pulse Oximetry 100 100 99 02/18/21 19:45 Temperature Pulse Rate 124 H Respiratory Rate 14 Blood Pressure Pulse Oximetry 100 Oxygen Delivery Method Room Air Oxygen Flow Rate 0 Narrative Exam Narrative: Exam Narrative: ill appearing emaciated female, face flushed who appears very ill, rousable with verbal/physical stimulation, in no respiratory distress. Appears older than stated age. Patient's presentation appears markedly worse than prior admits, that I completed. Const Other: puffy face, with erythema around eyes and cheeks HENMT Other: NC/ AT, EOMI, Sclera anicteric, oropharynx with dry mucus membranes Neck Other: supple, no adenopathy or thyromegaly Resp Other: Lungs: decreased breath sounds Cardio Other: CV: Tachycardic, nl Sl S2 GI Other: abd: scaphoid soft/nontender/ non distended Skin Other: no lesions noted, face puffy with erythema of cheeks and eyes Neuro Other: awake and alert, answers questions appropriately Cranial nerves intact, strength symmetric and equal, Sensation in tact, gait not assessed Extrem Other: no edema Psych Other: passive, does not appear to comprehend the gravity of the situation. She is dishonest about her managing her diabetes and appears to have passive a pproach to managing her diabetes Objective Labs Result Diagrams: 02/18/21 18:11 02/18/21 18:11 Labs: Laboratory Results - last 24 hr 02/18/21 02/18/21 02/18/21 18:04 18:11 18:11 WBC 12.3 H RBC 4.45 Hgb 14.2 Hct 44.2 MCV 99.5 D MCH 31.9 MCHC 32.0 RDW 14.2 Plt Count 499 H Neut % (Auto) 75.5 H Lymph % (Auto) 16.0 L [place] % (Auto) 7.4 Eos % (Auto) 0.0 L Baso % (Auto) 1.1 Neut # (Auto) 9300 H Lymph # (Auto) 2000 [place] # (Auto) 900 Eos # (Auto) 0 Baso # (Auto) 100 VBG pH 7.11 L* VBG pCO2 16.1 L VBG pO2 34 L VBG HCO3 5 L VBG Total CO2 6 L VBG O2 Saturation 49 L VBG Base Excess -24.0 L Sodium 138 Potassium 5.4 H D Chloride 93 L Carbon Dioxide < 5 L* BUN 24 H Creatinine 1.01 Estimated GFR > 60.0 BUN/Creatinine Ratio 23.8 H Glucose 846 H* D Lactate Calcium 9.9 Total Bilirubin 0.7 AST 27 ALT 43 H Alkaline Phosphatase 243 H Total Protein 7.7 Albumin 4.7 Globulin 3.0 Albumin/Globulin Ratio 1.6 Procalcitonin 0.19 Ketones 20.42 H SARS-CoV-2 (PCR) 02/18/21 02/18/21 18:11 18:20 WBC RBC Hgb Hct MCV MCH MCHC RDW Plt Count Neut % (Auto) Lymph % (Auto) [place] % (Auto) Eos % (Auto) Baso % (Auto) Neut # (Auto) Lymph # (Auto) [place] # (Auto) Eos # (Auto) Baso # (Auto) VBG pH VBG pCO2 VBG pO2 VBG HCO3 VBG Total CO2 VBG O2 Saturation VBG Base Excess Sodium Potassium Chloride Carbon Dioxide BUN Creatinine Estimated GFR BUN/Creatinine Ratio Glucose Lactate 2.3 H Calcium Total Bilirubin AST ALT Alkaline Phosphatase Total Protein Albumin Globulin Albumin/Globulin Ratio Procalcitonin Ketones SARS-CoV-2 (PCR) Negative Assessment & Plan Assessment & Plan narrative: Ms. Sarabjit Jimenes is a 31-year-old female patient with a history significant for poorly controlled type 1 diabetes, frequent admissions for DKA, migraines and irregular menstruation-admitted for recurrent severe diabetic ketoacidosis to the intensive care unit for insulin, and bicarb drip. 1. Severe diabetic ketoacidosis, with acute metabolic acidosis and hyperglycemia, due to medication noncompliance in diabetes mellitus type 1 insulin-dependent, Stable, acute on chronic, present on admission ?-blood glucose in ED 846 upon admit , A1c >14%, ketones 20.43. Lactate 2.3, Gap 40, Na 138, K+ 5.4, HC03 <5, Mag 2.9. VBG:PH 7.11, pCO2 16.1, PO2 34, HC03 5. -met SIRS and sepsis criteria in ED & Admit, sofa: 1 -differential alcoholic ketoacidosis, starvation ketosis, toxic metabolic encephalopathy, anion gap acidosis, metformin induced lactic acidosis -goal to correct estimated deficits within 24 hours BS <200, Ph>7.3, HC03>18, Gap<12, phosphorus >2.5, MAP >65. -monitor for heart failure, cerebral edema, or arrhythmias (prolonged QT- warning), hypoxemia, noncardiogenic pulmonary edema, rhabdomyolysis, metabolic myopathy. -patient received 1 bolus normal saline in ED -2 L LR fluid bolus resuscitation ordered -U/A, Lipase, Troponin, (BNP & VBG Q4hrs while on drip), Mag & phos Q8Hr, A1C, CK-r/o Rhabdo -Tele ICU participated in patient's admit. Ordered that pt have a diet: fluids progress as tolerated to Carb while on the drip.? -Once Blood sugar 200 or below give Initial Lantus 30units loading dose early on drip to help closing of the klever, and not require bridging towards the end of the drip.? ? -?DKA/insulin drip protocol: LR @100, Once BS 200-150 ,change to D5LR @150cc/HR -Stop drip Once anion gap is closed (GAP <12) -Once pt off drip-restart Lantus 30nits BID in substitutin for patients Tresiba Insulin -Bicarb Drip initiated 8.4% vial/75 mEq, in half-0.45%NS in 1000 cc bag, at a rate of 125-Stop Bicard once PH >7.2-7.3 - Strict input and output monitoring Q shift, blood sugar checks Q 1-2 hours per protocol, continue to monitor blood sugars a.c. and HS once off drip (BS 150- 200, use sliding med. dose).? -monitor for potassium, potassium less than <4.0, hold insulin and replace with K rider replacement. -Daily weight check, neuro check x1 and as needed, monitor for fluid overload. -please avoid Dilaudid for pain management in this patient -patient reports at home :takes Tresiba 50 mg Pm., and 7 units of prandial insulin. 2. Early sepsis, mild with neutrophilic leukocytosis, acute, present on admission -unknown etiology -WBC 12.3, neutrophils 9300- may be due to severity of DKA. -UA ordered-rule out UTI, CXR-rule out infection/pulmonary edema -met SIRS and sepsis criteria in ED & Admit, sofa: 1 -fluid resuscitation initiated, blood cultures drawn. 3. Elevated serum amniotransferase, and elevated alkaline phosphate, in the setting of severe DKA, noncompliant type 1 diabetic, acute, present on admission -ALT-43, Alk Phos-243. GGT, Hep panel, ETOH, ordered for further evaluation Unknown etiology -R/O extrahepatic causes (eg, bile duct stones, primary sclerosing cholangitis, malignant biliary obstruction) or intrahepatic causes (eg, PBC, primary sclerosing cholangitis, infiltrative disease). -Alcholol, partial bile duct obstruction, primary biliary cholangitis (PBC), primary sclerosing cholangitis, and certain drugs/ substances. 4.. Gastroparesis, secondary to uncontrolled diabetes chronic, stable, not present on admission. - ordered Reglan 10 mg IV q.6 as needed for nausea. 5.. Neurogenic bladder secondary to autonomic nerve dysfunction secondary to uncontrolled diabetes, stable, chronic, not present on admission -patient reports no burning, strong urine smell or hematuria in the setting of neurogenic bladder. -urinalysis ordered. 4. Malnutrition, as evidence by BMI of 16.1, acute on chronic, present on admission, secondary to patient's noncompliance in regards to type 1 diabetes insulin management -Patient's weight on 05/12/2020-49.89 kg, 10/18/2020-43 kg, 12/19/20-38.8 kg, 01/02/2021-40kg. Today 38.55 -dietary consult consideration regarding nutritional supplement ? VTE/DVT prophylaxis:? SCDs, heparin 5000 units b.i.d. Code status:? FULL CODE Surrogate decision maker: nina Gonzales. COVID-19 status: Negative COVID vaccination: Patient states she was told by her doctor NOT to be vaccinated. Disposition:? Estimated length of stay greater than 2 midnights I have utilized all available immediate resources to obtain, update, or review the patient's current medications. I confirmed that the patient's advanced care plan is present, Code status is documented and/or surrogate decision maker is listed in the patient's medical record. Time Spent With Patient Critical Care time: I spent a total of [] minutes of critical care time on this patient's care today; this time is exclusive of procedural time. Scores GCS Alex coma scale eye opening: To sound Alex coma scale verbal response: Orientated Alex coma scale motor response: Localising Alex coma scale total score: 13 SOFA PaO2/FIO2: >=400 mmHg Platelets: >= 150 Bilirubin: < 1.2 mg/dL Hypotension: MAP >= 70 mmHg Alex Coma Scale: 13-14 Renal: < 1.2 mg/dL SOFA Score: 1 Wells' Criteria for PE Clinical signs and symptoms of DVT: No PE is #1 Dx or equally likely: No Heart rate > 100: Yes Immobilization at least 3 days or surg in previous 4 weeks: No History of PE or DVT: No Hemoptysis: No Malignancy w/Treatment within 6 months or palliative: No Wells' PE Score total: 1.5
--- NOTE | 2021-02-18 20:32 | PM.CN.EICU ---
History of Present Illness Consult details Chief complaint: Doesn't Feel Good :: This patient was seen via real time interactive two-way audiovisual telecommunication. Narrative: 30-year-old female with IDDM, frequent admissions with DKA 2/2 non compliance, admitted for DKA Assessment: DKA HAGMA 2/2 the above Poorly controlled IDDM Rec: IV insulin and fluid per DKA protocol BMP & VBG Q4H, Mag and phos Q12, replace per protocol , keep K above 4 while on insulin drip Bicarb drip 125 ml/hr, Dc after Ph >7.2 Check UA, EKG and trop Diabetic diet when able to tolerated PO Diabetic education Heparin for DVT ppx GI ppx NI Plan was discussed with the staff [facility] Medical History DKA (diabetic ketoacidoses) History of pyelonephritis Irregular menstrual cycle Migraine headache Nephrolithiasis Type 1 diabetes mellitus Surgical History History of ureter stent Hx of cataract surgery Hx of local excision of skin lesion Status post laser lithotripsy of ureteral calculus [place] teeth extracted Family History Father In good health Mother Cardiac disease Social History details: Engaged household members: family Smoking Status: Never smoker alcohol intake: never Current Medications Current Medications Medications: Home Medications glucose 4 gram chewable tablet 4 gram PO Q15M PRN #30 tab 12/12/18 [Rx Confirmed 02/10/21] glucagon (human recombinant) 1 mg solution for injection (Glucagon Emergency Kit) 1 mg SUBCUT DIRECTED 02/16/19 [History Confirmed 02/10/21] insulin degludec 200 unit/mL (3 mL) subcutaneous pen 53 unit SUBCUT 1100 11/21/19 [History Confirmed 02/10/21] insulin aspart U-100 100 unit/mL (3 mL) subcutaneous pen (Novolog Flexpen U-100 Insulin aspart) 10 unit SUBCUT AC 05/20/20 [History Confirmed 02/10/21] diphenhydramine HCl 50 mg capsule 50 mg PO BEDTIME PRN 09/29/20 [History Confirmed 02/10/21] Visit Medications (administered) Generic Name Dose Route Start Last Admin Trade Name Shimon PRN Reason Stop Dose Admin INSULIN DRIP PREMIX 100 unit in 100 mls @ 6 mls/hr 02/18/21 19:15 02/18/21 20:09 Myxredlin Drip Premix IV 8 ml/hr TITRATE BLAISE 8 mls/hr Titration Protocol Exam Vital Signs (past 8 hours): - 02/18/21 17:59 02/18/21 18:00 02/18/21 18:30 Temperature 97.6 F Pulse Rate 134 H 132 H 125 H Respiratory Rate 20 19 Blood Pressure 99/68 103/67 101/65 Pulse Oximetry 100 100 99 02/18/21 19:45 Temperature Pulse Rate 124 H Respiratory Rate 14 Blood Pressure Pulse Oximetry 100 Oxygen Delivery Method Room Air Oxygen Flow Rate 0 Objective Labs Result Diagrams: 02/18/21 18:11 02/18/21 18:11 Labs: Laboratory Results - last 24 hr 02/18/21 02/18/21 02/18/21 18:04 18:11 18:11 WBC 12.3 H RBC 4.45 Hgb 14.2 Hct 44.2 MCV 99.5 D MCH 31.9 MCHC 32.0 RDW 14.2 Plt Count 499 H Neut % (Auto) 75.5 H Lymph % (Auto) 16.0 L [place] % (Auto) 7.4 Eos % (Auto) 0.0 L Baso % (Auto) 1.1 Neut # (Auto) 9300 H Lymph # (Auto) 2000 [place] # (Auto) 900 Eos # (Auto) 0 Baso # (Auto) 100 VBG pH 7.11 L* VBG pCO2 16.1 L VBG pO2 34 L VBG HCO3 5 L VBG Total CO2 6 L VBG O2 Saturation 49 L VBG Base Excess -24.0 L Sodium 138 Potassium 5.4 H D Chloride 93 L Carbon Dioxide < 5 L* BUN 24 H Creatinine 1.01 Estimated GFR > 60.0 BUN/Creatinine Ratio 23.8 H Glucose 846 H* D Lactate Calcium 9.9 Total Bilirubin 0.7 AST 27 ALT 43 H Alkaline Phosphatase 243 H Total Protein 7.7 Albumin 4.7 Globulin 3.0 Albumin/Globulin Ratio 1.6 Procalcitonin 0.19 Ketones 20.42 H SARS-CoV-2 (PCR) 02/18/21 02/18/21 18:11 18:20 WBC RBC Hgb Hct MCV MCH MCHC RDW Plt Count Neut % (Auto) Lymph % (Auto) [place] % (Auto) Eos % (Auto) Baso % (Auto) Neut # (Auto) Lymph # (Auto) [place] # (Auto) Eos # (Auto) Baso # (Auto) VBG pH VBG pCO2 VBG pO2 VBG HCO3 VBG Total CO2 VBG O2 Saturation VBG Base Excess Sodium Potassium Chloride Carbon Dioxide BUN Creatinine Estimated GFR BUN/Creatinine Ratio Glucose Lactate 2.3 H Calcium Total Bilirubin AST ALT Alkaline Phosphatase Total Protein Albumin Globulin Albumin/Globulin Ratio Procalcitonin Ketones SARS-CoV-2 (PCR) Negative Assessment & Plan Time Spent With Patient Critical Care time: I spent a total of [] minutes of critical care time on this patient's care today; this time is exclusive of procedural time.
[2021-02-18 20:39] LABS: Lipase 102 U/L (23-300); Magnesium 2.9 mg/dL (1.6-2.3); Phosphorous 7.9 mg/dL (2.5-4.5)
[2021-02-18 20:41] LABS: Hemoglobin A1C% w Est Avg Glu > 14.0 % (4.0-6.0)
--- NOTE | 2021-02-18 20:47 | PC.NURSE ---
200702/18/[address] Moyer -bolus two additional liters of fluid. LR preferred. -obtain PICC line -start BiCarb infusion with 150 mEq NaBicarb in 1000ml of sterile water to run at 125 ml/hr. Goal: pH= 7.3 Can discontinue at that point. -If can not obtain sterile water for infusion, alternative is 1000ml of 1/2 NS with 75 mEq of NaBicarb to run at 125 ml/hr. Goal: pH=7.3 -obtain UA, troponin and 12-lead EKG -replace potassium if K<5 -replace potassium aggressively if K<4 -BMP q4h
[2021-02-18 20:53] LABS: Troponin I < 0.012 ng/mL (0.01-0.034)
[2021-02-18 21:01] LABS: Lactate 2HR (Lactic Acid Rflx) 2.5 mmol/L (0.7-2.1)
--- NOTE | 2021-02-18 21:14 | PC.NURSE ---
203902/18/2021 Fawn ASKEW Patient can eat if so chooses while on insulin gtts.
--- NOTE | 2021-02-18 22:01 | DI.RAD.S_ITS ---
PROCEDURE: XR CHEST 1V INDICATIONS: DKA, sepsis R/O infection TECHNIQUE: One view of the chest was acquired. COMPARISON: [facility], CR, XR CHEST 1V, 02/10/2021, 10:40. FINDINGS: Surgical changes and devices: The previously seen left-sided PICC has been removed. Lungs and pleura: The patient is mildly rotated in there is mild attic positioning. No acute airspace opacity. No pleural effusion or pneumothorax. Mediastinum: Mediastinal contours appear normal. Heart size is normal. Bones and chest wall: No suspicious bony lesions. Overlying soft tissues appear unremarkable. IMPRESSION: No acute cardiopulmonary abnormality. Dictated by: Luis F Mahmood M.D. on 02/18/2021 at 22:25 Approved by: Luis F Mahmood M.D. on 02/18/2021 at 22:27
[2021-02-18] MEDS: LACTATED RINGERS 1,000 ML 1000 ML IV ×2 (22:22→23:27)
[2021-02-18 22:55] LABS: Creatine Kinase 26 U/L (30-135); Lactate Dehydrogenase 820 U/L (313-618)
[2021-02-18 23:13] LABS: Ethanol (ETOH) < 10 mg/dL
[2021-02-19] VITALS (9 sets, daily range): BP systolic 92–103; BP diastolic 53–68; PULSE 113–116; RESP 9–15; TEMP 36.9; O2SAT 97–100
--- NOTE | 2021-02-19 | DI.RAD.S_ITS ---
PROCEDURE: XR CHEST FOR PICC 1V INDICATIONS: PICC COMPARISON: [facility], CR, XR CHEST 1V, 02/18/2021, 22:05. FINDINGS: PICC was placed by the intravenous therapy team from the left side. Fluoroscopic spot film demonstrates the tip of PICC projecting to the area of the superior cavoatrial junction. IMPRESSION: Tip of PICC projects to the area of the superior cavoatrial junction. Dictated by: Luis F Mahmood M.D. on 02/19/2021 at 0:05 Approved by: Luis F Mahmood M.D. on 02/19/2021 at 0:06
[2021-02-19] MEDS: DEXTROSE 5%-0.45% NS 1,000 ML 100 ML IV (01:15)
[2021-02-19] MEDS: HEPARIN 5,000 UNIT/ML VIAL 5000 UNIT SUBCUT (01:53)
[2021-02-19] MEDS: INSULIN GLARGINE 100 UNIT/ML 3ML PEN 30 UNIT SUBCUT ×2 (01:54→08:39)
[2021-02-19 02:04] LABS: Alanine Aminotransferase 32 IU/L (<35); Albumin 3.5 g/dL (3.5-5.0); Albumin Globulin Ratio 1.4 (1.0-2.8); Alkaline Phosphatase 124 U/L (38-126); Aspartate Aminotransferase 19 IU/L (14-36); Bilirubin Total 0.4 mg/dL (0.2-1.3); Blood Urea Nitrogen 24 mg/dL (7-17); Calcium 9.1 mg/dL (8.4-10.2); Carbon Dioxide 23 mmol/L (22-32); Chloride 104 mmol/L (98-107); Estimated Glomerular Filt Rate > 60.0 mL/min (>60); Globulin 2.5 g/dL (1.7-4.1); Glucose 168 mg/dL (70-100); HEMOLYSIS < 15 (0-50); Phosphorous 2.3 mg/dL (2.5-4.5); Potassium 3.2 mmol/L (3.4-5.1); Sodium 141 mmol/L (137-145)
[2021-02-19 02:05] LABS: Lactate (Lactic Acid) 1.5 mmol/L (0.7-2.1)
[2021-02-19 02:31] LABS: HCO3 VBG 24 mmol/L (23-28); Oxygen Saturation VBG 70 % (70-75); PCO2 VBG 40.1 mmHg (45-50); PO2 VBG 37 mmHg (35-45); Total CO2 VBG 25 mmol/L (24-29); pH VBG 7.38 (7.33-7.43)
[2021-02-19] MEDS: POTASSIUM CHLORIDE IN WATER 10 MEQ/100 ML PIGGYBACK 100 MEQ IV ×4 (03:13→06:50)
[2021-02-19 06:07] LABS: Gamma Glutamyl Transpeptidase 123 U/L (12-43)
[2021-02-19 06:09] LABS: Alanine Aminotransferase 35 IU/L (<35); Albumin Globulin Ratio 1.4 (1.0-2.8); Bilirubin Unconjugated 0.3 mg/dL (0.0-1.1); Globulin 2.5 g/dL (1.7-4.1); Ketones (Beta-Hydroxybutyrate) 1.96 mmol/L (<0.27)
[2021-02-19 06:11] LABS: HEMOLYSIS 176 (0-50)
[2021-02-19 06:12] LABS: Albumin 3.5 g/dL (3.5-5.0); Bilirubin Total 1.1 mg/dL (0.2-1.3)
[2021-02-19 06:13] LABS: Alkaline Phosphatase 111 U/L (38-126); Aspartate Aminotransferase 47 IU/L (14-36)
[2021-02-19 06:15] LABS: Phosphorous 3.1 mg/dL (2.5-4.5)
[2021-02-19 06:26] LABS: Appearance Urine UA CLEAR; Bilirubin Urine UA NEGATIVE (NEGATIVE); Color Urine UA YELLOW; Glucose Urine UA 2+ g/dL (Negative); Ketones Urine UA 3+ (NEGATIVE); Leukocyte Esterase Urine UA NEGATIVE (NEGATIVE); Nitrite Urine UA NEGATIVE (Negative); Occult Blood Urine UA 2+ (Negative); Protein Urine UA TRACE (Negative); Urobilinogen Urine UA 0.2 E.U./dL (0.2)
[2021-02-19 06:34] LABS: Bacteria Urine None Seen; Culture Indicated Urine Cult Not Indicated; Hyaline Casts Urine 0-1/LPF; RBC Urine 1-5/HPF (0-5/HPF); Squamous Epithelial Cell Urine 0-1 /HPF (0-5/HPF); WBC Urine None Seen (0-5/HPF)
[2021-02-19 06:35] LABS: HCO3 VBG 30 mmol/L (23-28); PCO2 VBG 48.2 mmHg (45-50); PO2 VBG 39 mmHg (35-45); Total CO2 VBG 31 mmol/L (24-29)
[2021-02-19 06:36] LABS: Oxygen Saturation VBG 72 % (70-75)
[2021-02-19 08:21] LABS: BUN Creatinine Ratio 48.9 (6-22); Blood Urea Nitrogen 23 mg/dL (7-17); Calcium 8.5 mg/dL (8.4-10.2); Carbon Dioxide 29 mmol/L (22-32); Chloride 104 mmol/L (98-107); Estimated Glomerular Filt Rate > 60.0 mL/min (>60); Glucose 107 mg/dL (70-100); HEMOLYSIS 19 (0-50); Potassium 4.6 mmol/L (3.4-5.1); Sodium 138 mmol/L (137-145)
--- NOTE | 2021-02-19 08:27 | P.DS_ITS ---
History of Present Illness History of Present Illness Date Patient Seen: 02/19/21 Time Patient Seen: 08:27 Chief complaint: Doesn't Feel Good Narrative: Per Amee Mendez, FACILITY MANAGER HISTOLOGY-: Ms. Sarabjit Jimenes is a 31-year-old female patient with a history significant for poorly controlled type 1 diabetes, frequent admissions for DKA (Patient has had a total of 11 admits in 2020 with 4 stand-alone ER visits), migraines and irregular menstruation?who presents to the ED in DKA.? Presents today complaining that she is dehydrated and is again in DKA.? She states that she has been taking her insulin, she has not been sick recently she has been eating and drinking appropriately she has no complaints of diarrhea, dysuria, flank pain.? There are no skin complaints or findings.? She does not have any neurologic complaints, or headache.?Patient does endorse vomiting x 1 yesterday.? Main complaint is that she is very dry, body aches, and thirsty.? She denies chest pain, shortness of breath, cough, nasal drainage, sore throat, headache, changes in vision, new or unusual weakness, nausea, abdominal pain, vomiting at this time, recent illness, injury, or trauma.? She was discharged 7 days ago.?? She is accompanied by her fiance today.? He reported in the ED that they have done an experiment where she lived at home with her mother April to August, she has since moved back in with her fiance in September. He reports that she is often left at home alone, as he works 60 hours a week he says that she has been admitted to the hospital multiple times since living with him. ? In ED pH of 7.1 tachycardic with heart rate in the 130s, afebrile.??[id number]? She is offered Tylenol or Motrin for her pain at this time she opts not to have those. Upon admit to the floor patient continues to be tachycardic temp 97.6?, BP 101/65, HR 125, RR 19, O2 saturation 99% on room air.? VBG: PH 7.11, pCO2 16.1, PO2 34, HC03 5, T CO2 6, O2 saturation 49%, BE -24.? Patient demonstrates a gap of 40, which is much higher than previous visits.? Patient meets SIRS and sepsis criteria.SOFA:1? 12.3, neutrophils 9300, platelets 499.? Potassium 5.4, chloride 93, HC03<5, BUN 24, 846, lactate 2.3, serum ketones 20.42.? I personally reviewed patient's EKG from the ED sinus tachycardia with a rate of [address] and T-wave abnormalities possible lateral ischemia, and right atrial enlargement this is a change from last EKG on admission.? Patient admitted for diabetic ketoacidosis, in a type 1 insulin-dependent diabetic. -The hospitalist service has consulted with her product safety associate 11/2020 during hospital admit, and he advised that her brittle DM issues are psych nature, not diabetic or endocrine driven. Though patient will verbalize on each admit that she is compliant with her insulins, on record A1C: [id number] have all been >14%.?Patient verbalized that she has not followed up with her product safety associate for some time. Discharge Providers Provider Date of admission: 02/18/21 18:50 Discharge Date: 02/19/21 Primary care physician: Maria Ines Limon DO Consults: 02/18/21 22:02 Consult After Hours PICC Line RN Routine Comment: They have been notified-by coordinator Gurinder Discharge provider: Julio Cesar Weinberg DO Summary Hospital Course Discharge Diagnosis: 1. DKA, Type 1 DM 2. Gastroparesis 3. Neurogenic bladder 4. Severe protein calorie malnutrition Hospital Course: Ms. Jimenes was admitted with DKA. She was found to have elevated blood sugars and an anion gap. She improved much more quickly than expected with IV insulin and IV fluids and the morning of discharge her blood sugars had improved and she was started on her home medications. Her a1c is 14% consistent with her having issues with compliance. She was referred to endocrinology. She has been referred in the past, she has been recommended to have psychiatry follow up but this has not occurred. Time Spent with Patient Time spent: Greater than 30 minutes Exam Vital Signs (past 8 hours): - 02/19/21 01:00 02/19/21 02:00 02/19/21 03:00 Temperature Pulse Rate 114 H 116 H 115 H Respiratory Rate 12 9 L 12 Blood Pressure 93/57 L 98/55 L 92/53 L Pulse Oximetry 99 99 97 02/19/21 04:00 02/19/21 05:00 02/19/21 06:00 Temperature Pulse Rate 115 H 113 H 113 H Respiratory Rate 10 L 12 14 Blood Pressure 103/64 101/56 L 97/61 Pulse Oximetry 100 98 98 02/19/21 07:00 02/19/21 08:06 Temperature 98.4 F Pulse Rate 114 H Respiratory Rate 12 Blood Pressure 98/61 Pulse Oximetry 98 Oxygen Delivery Method Room Air Oxygen Flow Rate 0 Narrative Exam Narrative: GEN: no acute distress, near cachectic appearing young female. Pale. HEENT: dry mucous memrances CV: tachycardic, regular rhythm no m/r/g Pulm: CTA b/l no wheezes rhonchi or rales ABD: soft, nontender, nondistended Objective Labs Result Diagrams: 02/18/21 18:11 02/19/21 08:00 Labs: Laboratory Results - last 24 hr 02/18/21 02/18/21 02/18/21 18:04 18:11 18:11 WBC 12.3 H RBC 4.45 Hgb 14.2 Hct 44.2 MCV 99.5 D MCH 31.9 MCHC 32.0 RDW 14.2 Plt Count 499 H Neut % (Auto) 75.5 H Lymph % (Auto) 16.0 L [place] % (Auto) 7.4 Eos % (Auto) 0.0 L Baso % (Auto) 1.1 Neut # (Auto) 9300 H Lymph # (Auto) 2000 [place] # (Auto) 900 Eos # (Auto) 0 Baso # (Auto) 100 VBG pH 7.11 L* VBG pCO2 16.1 L VBG pO2 34 L VBG HCO3 5 L VBG Total CO2 6 L VBG O2 Saturation 49 L VBG Base Excess -24.0 L Sodium 138 Potassium 5.4 H D Chloride 93 L Carbon Dioxide < 5 L* BUN 24 H Creatinine 1.01 Estimated GFR > 60.0 BUN/Creatinine Ratio 23.8 H Glucose 846 H* D Hemoglobin A1c Lactate Calcium 9.9 Phosphorus Magnesium Total Bilirubin 0.7 Conjugated Bilirubin Unconjugated Bilirubin GGT AST 27 ALT 43 H Alkaline Phosphatase 243 H Lactate Dehydrogenase Total Creatine Kinase Troponin I Total Protein 7.7 Albumin 4.7 Globulin 3.0 Albumin/Globulin Ratio 1.6 Lipase Procalcitonin 0.19 Urine Color Urine Appearance Urine pH Ur Specific [place] Urine Protein Urine Glucose (UA) Urine Ketones Urine Occult Blood Urine Nitrate Urine Bilirubin Urine Urobilinogen Ur Leukocyte Esterase Urine RBC Urine WBC Ur Squamous Epith Cells Urine Bacteria Hyaline Casts Ur Culture Indicated? Ethyl Alcohol Ketones 20.42 H SARS-CoV-2 (PCR) 02/18/21 02/18/21 02/18/21 18:11 18:11 18:11 WBC RBC Hgb Hct MCV MCH MCHC RDW Plt Count Neut % (Auto) Lymph % (Auto) [place] % (Auto) Eos % (Auto) Baso % (Auto) Neut # (Auto) Lymph # (Auto) [place] # (Auto) Eos # (Auto) Baso # (Auto) VBG pH VBG pCO2 VBG pO2 VBG HCO3 VBG Total CO2 VBG O2 Saturation VBG Base Excess Sodium Potassium Chloride Carbon Dioxide BUN Creatinine Estimated GFR BUN/Creatinine Ratio Glucose Hemoglobin A1c > 14.0 H Lactate 2.3 H Calcium Phosphorus 7.9 H Magnesium 2.9 H Total Bilirubin Conjugated Bilirubin Unconjugated Bilirubin GGT AST ALT Alkaline Phosphatase Lactate Dehydrogenase Total Creatine Kinase Troponin I < 0.012 Total Protein Albumin Globulin Albumin/Globulin Ratio Lipase 102 D Procalcitonin Urine Color Urine Appearance Urine pH Ur Specific [place] Urine Protein Urine Glucose (UA) Urine Ketones Urine Occult Blood Urine Nitrate Urine Bilirubin Urine Urobilinogen Ur Leukocyte Esterase Urine RBC Urine WBC Ur Squamous Epith Cells Urine Bacteria Hyaline Casts Ur Culture Indicated? Ethyl Alcohol Ketones SARS-CoV-2 (PCR) 02/18/21 02/18/21 02/18/21 18:11 18:11 18:20 WBC RBC Hgb Hct MCV MCH MCHC RDW Plt Count Neut % (Auto) Lymph % (Auto) [place] % (Auto) Eos % (Auto) Baso % (Auto) Neut # (Auto) Lymph # (Auto) [place] # (Auto) Eos # (Auto) Baso # (Auto) VBG pH VBG pCO2 VBG pO2 VBG HCO3 VBG Total CO2 VBG O2 Saturation VBG Base Excess Sodium Potassium Chloride Carbon Dioxide BUN Creatinine Estimated GFR BUN/Creatinine Ratio Glucose Hemoglobin A1c Lactate Calcium Phosphorus Magnesium Total Bilirubin Conjugated Bilirubin Unconjugated Bilirubin GGT AST ALT Alkaline Phosphatase Lactate Dehydrogenase 820 H Total Creatine Kinase 26 L Troponin I Total Protein Albumin Globulin Albumin/Globulin Ratio Lipase Procalcitonin Urine Color Urine Appearance Urine pH Ur Specific [place] Urine Protein Urine Glucose (UA) Urine Ketones Urine Occult Blood Urine Nitrate Urine Bilirubin Urine Urobilinogen Ur Leukocyte Esterase Urine RBC Urine WBC Ur Squamous Epith Cells Urine Bacteria Hyaline Casts Ur Culture Indicated? Ethyl Alcohol < 10 Ketones SARS-CoV-2 (PCR) Negative 02/18/21 02/19/21 02/19/21 20:35 01:40 01:40 WBC RBC Hgb Hct MCV MCH MCHC RDW Plt Count Neut % (Auto) Lymph % (Auto) [place] % (Auto) Eos % (Auto) Baso % (Auto) Neut # (Auto) Lymph # (Auto) [place] # (Auto) Eos # (Auto) Baso # (Auto) VBG pH VBG pCO2 VBG pO2 VBG HCO3 VBG Total CO2 VBG O2 Saturation VBG Base Excess Sodium Cancelled 141 Potassium Cancelled 3.2 L D Chloride Cancelled 104 Carbon Dioxide Cancelled 23 BUN Cancelled 24 H Creatinine Cancelled 0.60 Estimated GFR Cancelled > 60.0 BUN/Creatinine Ratio Cancelled 40.0 H Glucose Cancelled 168 H D Hemoglobin A1c Lactate 2.5 H Calcium Cancelled 9.1 Phosphorus 2.3 L D Magnesium 2.0 Total Bilirubin 0.4 Conjugated Bilirubin Unconjugated Bilirubin GGT AST 19 ALT 32 Alkaline Phosphatase 124 D Lactate Dehydrogenase Total Creatine Kinase Troponin I Total Protein 6.0 L Albumin 3.5 Globulin 2.5 Albumin/Globulin Ratio 1.4 Lipase Procalcitonin Urine Color Urine Appearance Urine pH Ur Specific [place] Urine Protein Urine Glucose (UA) Urine Ketones Urine Occult Blood Urine Nitrate Urine Bilirubin Urine Urobilinogen Ur Leukocyte Esterase Urine RBC Urine WBC Ur Squamous Epith Cells Urine Bacteria Hyaline Casts Ur Culture Indicated? Ethyl Alcohol Ketones SARS-CoV-2 (PCR) 02/19/21 02/19/21 02/19/21 01:40 01:59 05:40 WBC RBC Hgb Hct MCV MCH MCHC RDW Plt Count Neut % (Auto) Lymph % (Auto) [place] % (Auto) Eos % (Auto) Baso % (Auto) Neut # (Auto) Lymph # (Auto) [place] # (Auto) Eos # (Auto) Baso # (Auto) VBG pH 7.38 VBG pCO2 40.1 L VBG pO2 37 VBG HCO3 24 VBG Total CO2 25 VBG O2 Saturation 70 VBG Base Excess -2.0 L Sodium Potassium Chloride Carbon Dioxide BUN Creatinine Estimated GFR BUN/Creatinine Ratio Glucose Hemoglobin A1c Lactate 1.5 Calcium Phosphorus Magnesium Total Bilirubin Conjugated Bilirubin Unconjugated Bilirubin GGT 123 H AST ALT Alkaline Phosphatase Lactate Dehydrogenase Total Creatine Kinase Troponin I Total Protein Albumin Globulin Albumin/Globulin Ratio Lipase Procalcitonin Urine Color Urine Appearance Urine pH Ur Specific [place] Urine Protein Urine Glucose (UA) Urine Ketones Urine Occult Blood Urine Nitrate Urine Bilirubin Urine Urobilinogen Ur Leukocyte Esterase Urine RBC Urine WBC Ur Squamous Epith Cells Urine Bacteria Hyaline Casts Ur Culture Indicated? Ethyl Alcohol Ketones SARS-CoV-2 (PCR) 02/19/21 02/19/21 02/19/21 05:40 05:40 05:56 WBC RBC Hgb Hct MCV MCH MCHC RDW Plt Count Neut % (Auto) Lymph % (Auto) [place] % (Auto) Eos % (Auto) Baso % (Auto) Neut # (Auto) Lymph # (Auto) [place] # (Auto) Eos # (Auto) Baso # (Auto) VBG pH 7.40 VBG pCO2 48.2 VBG pO2 39 VBG HCO3 30 H VBG Total CO2 31 H VBG O2 Saturation 72 VBG Base Excess 5.0 H Sodium Potassium Chloride Carbon Dioxide BUN Creatinine Estimated GFR BUN/Creatinine Ratio Glucose Hemoglobin A1c Lactate Calcium Phosphorus 3.1 Magnesium 2.0 Total Bilirubin 1.1 Conjugated Bilirubin 0.0 Unconjugated Bilirubin 0.3 GGT AST 47 H ALT 35 H Alkaline Phosphatase 111 Lactate Dehydrogenase Total Creatine Kinase Troponin I Total Protein 6.0 L Albumin 3.5 Globulin 2.5 Albumin/Globulin Ratio 1.4 Lipase Procalcitonin Urine Color Urine Appearance Urine pH Ur Specific [place] Urine Protein Urine Glucose (UA) Urine Ketones Urine Occult Blood Urine Nitrate Urine Bilirubin Urine Urobilinogen Ur Leukocyte Esterase Urine RBC Urine WBC Ur Squamous Epith Cells Urine Bacteria Hyaline Casts Ur Culture Indicated? Ethyl Alcohol Ketones 1.96 H SARS-CoV-2 (PCR) 02/19/21 02/19/21 06:05 08:00 WBC RBC Hgb Hct MCV MCH MCHC RDW Plt Count Neut % (Auto) Lymph % (Auto) [place] % (Auto) Eos % (Auto) Baso % (Auto) Neut # (Auto) Lymph # (Auto) [place] # (Auto) Eos # (Auto) Baso # (Auto) VBG pH VBG pCO2 VBG pO2 VBG HCO3 VBG Total CO2 VBG O2 Saturation VBG Base Excess Sodium 138 Potassium 4.6 D Chloride 104 Carbon Dioxide 29 BUN 23 H Creatinine 0.47 L Estimated GFR > 60.0 BUN/Creatinine Ratio 48.9 H Glucose 107 H Hemoglobin A1c Lactate Calcium 8.5 Phosphorus Magnesium Total Bilirubin Conjugated Bilirubin Unconjugated Bilirubin GGT AST ALT Alkaline Phosphatase Lactate Dehydrogenase Total Creatine Kinase Troponin I Total Protein Albumin Globulin Albumin/Globulin Ratio Lipase Procalcitonin Urine Color Yellow Urine Appearance Clear Urine pH 5.0 Ur Specific [place] 1.010 Urine Protein Trace H Urine Glucose (UA) 2+ H Urine Ketones 3+ H Urine Occult Blood 2+ H Urine Nitrate Negative Urine Bilirubin Negative Urine Urobilinogen 0.2 Ur Leukocyte Esterase Negative Urine RBC 1-5/hpf Urine WBC None seen Ur Squamous Epith Cells 0-1 /hpf Urine Bacteria None seen Hyaline Casts 0-1/lpf Ur Culture Indicated? Cult not indicated Ethyl Alcohol Ketones SARS-CoV-2 (PCR) [facility] Medical History (Updated 02/18/21 @ 21:42 by CARTER Vicente-YANA) DKA (diabetic ketoacidoses) History of pyelonephritis Irregular menstrual cycle Migraine headache Nephrolithiasis Noncompliance w/medication treatment due to intermit use of medication Type 1 diabetes mellitus Surgical History History of ureter stent Hx of cataract surgery Hx of local excision of skin lesion Status post laser lithotripsy of ureteral calculus [place] teeth extracted Family History Father In good health Mother Cardiac disease Social History details: Engaged household members: significant other Smoking Status: Never smoker alcohol intake: never Discharge Plan Discharge Plan Patient Disposition: Home Provider Discharge Comment: Admitted for DKA, improved quickly. Please follow up with PCP, endocrinology as an outpatient. Discharge orders & Medications Prescriptions: Continued glucose 4 gram tablet,chewable 4 gram PO Q15M PRN (Reason: hypoglycemia) Qty: 30 RF: 0 Glucagon Emergency Kit (human) 1 mg recon soln 1 mg subcut DIRECTED RF: 0 insulin degludec 200 unit/mL (3 mL) Insulin Pen 53 unit SUBCUT 1100 RF: 0 insulin aspart U-100 [Novolog Flexpen U-100 Insulin] 100 unit/mL (3 mL) insulin pen 10 unit SUBCUT AC RF: 0 diphenhydramine HCl 50 mg Capsule 50 mg PO BEDTIME PRN (Reason: Sleep) RF: 0 Follow up/Referrals: Maria Ines Limon DO [Primary Care Provider] - Diet/Activity/Treatments Diet: Diet as Tolerated and Carb-consistent/Diabetic Activity: As tolerated Visit Report/Discharge Packet Instructions: DI for Diabetic Ketoacidosis Discharge Data Primary Care Provider: Maria Ines Limon
[2021-02-19] MEDS: LACTATED RINGERS 1,000 ML 1000 ML IV (08:37)
--- NOTE | 2021-02-19 09:10 | CM.DANOTE ---
DCP: Case received, EMR reviewed and met with patient. Introduced self and role. Patient has been here recently at the hospital, and this emergency planner is familiar with the patient. DCP assessment was completed with information currently available. Patient is a 31 year old female who admitted yesterday afternoon to the care of the hospitalist team. PCP: Dr. Limon. Payer: confirmed: [employer]. Patient came to the hospital via private vehicle secondary to not feeling well. Patient was diagnosed with DKA, and glucose was 800. Patient has been here frequently, for the same diagnoses. Patient was also noted to have gastroperesis secondary to DKA. Patient is established with outpatient diabetic education, and did go to her recent appointment on 02-17. Patient was recently discharged from this hospital on 02-16. Patient was offered additional resources, such as the [facility] [employer] Program, due to the frequency of her hospital visits, as well as following up with [facility] Associate Manager [employer]. It has been patient's requests to just come here to the hospital for her treatment. She states that she does take her medications. Patient is independent as far as her mobility, and she is now residing with her fianceReggie. She indicated, he will be the one picking her up today. She was laying on her side, as this emergency planner introduced herself. Asked her if she needed any resources at discharge, and she stated, no. Patient's mother, Argelia, has also been involved in patient's care needs, such as taking he to outpatient appointment. Patient's fiance works 60 hours a week, and patient is often home alone. She resides here in [place]. P: Patient is to be discharging home today. Anni Rudd RN/Associate Manager Affiliate Marketing Discharge Planning/Care Management CM Discharge Assessment Start: 02/19/21 09:06 Freq: Status: Active Protocol: Document 02/19/21 09:07 (Rec: 02/19/21 09:10 [id number]) Discharge Planning Assessment Assigned Industrial Service Technician Anni Rudd RN/Associate Manager Affiliate Marketing Advance Directives? No Advance Directives on File No History Provided By Patient,Medical Record Prior Living Arrangements House Household Members significant other Type of transporation used prior to Relies on Others admit Is patient alert and oriented? Yes Needs Assistance With Meal Prep,Managing Medications ,Home Chores / Shopping Comment Needs reminding regarding taking her medications. Caregiver for Another No Comment Outpatient road equipment operator/Diabetes teaching Comment PCP is Dr. Limon at [facility]# [phone]. Discharge Plan Home Transportation Arrangement Patient reports that her fiance/Reggie will provide transport home. Referrals Initiated Other Additional Comment [facility] for non-healing scalp wound Whiteboard Updated in Patient Room with Yes name and ext. # of Industrial Service Technician Review Status In Process Next Review Type Continued Stay Review
--- NOTE | 2021-02-19 09:54 | PC.NURSE ---
Addendum entered by Federico Portillo R.N. 02/19/21 13:55: Pt left with all belongings via w/c. Escorted to POV by AUTO AIR CONDITIONING APPRENTICE in no distress at 1315. Addendum entered by Federico Portillo R.N. 02/19/21 11:13: Reviewed d/c packet and educational materials. Pt is tearful during dc teaching and not definitively receptive to education. Reviewed insulin regimen and next dose due. Reviewed dka and provided education regarding sick day plan. Reinforced to pt the need to f/u with PCP and release coordinator. Pt states that she understands educational materials, insulin regimen, and need for f/u. PIV and PICC removed with cath tips intact. Pt states she is still waiting to hear from her fiance regarding clam picker time. Original Note: 0830- Hospitalist rounded. Reviewed orders, BGs, IVFs, labs. Orders received to dc IVFs, give 1L LR bolus for dehydration, dc protonix, pt may dc home after fluid bolus. Pt at breakfast and completed fluid bolus. 0940- Reviewed post bolus HR 112 with hospitalist who states ok to dc home. No further orders given. Pt feels well and would like to go home. States she called her fiance but is unable to reach him at this time.
[2021-02-19] MEDS: INSULIN LISPRO 100 UNIT/ML 3ML VIAL SUBCUT (12:39)
== END 2021-02-19 13:15 | disposition home or self-care (01) | DRG 638 ==
LOC: ED 18:34 → AC 18:51 → ICU 02-19 05:27
PROVIDERS: Nurse Practitioner Family; Admitting Provider Internal Medicine; Emergency Provider Emergency Medicine; PCP Student in an Organized Health Care Education/Training Program; Referring Provider Emergency Medicine; Visit Provider Internal Medicine
DX: E10.10 Type 1 diabetes mellitus with ketoacidosis without coma (principal); E46 Unspecified protein-calorie malnutrition; Z68.1 Body mass index [BMI] 19.9 or less, adult; E10.43 Type 1 diabetes mellitus with diabetic autonomic (poly)neuropathy; T38.3X6A Underdosing of insulin and oral hypoglycemic [antidiabetic] drugs, initial encounter; K31.84 Gastroparesis; N31.2 Flaccid neuropathic bladder, not elsewhere classified; Z91.128 Patient's intentional underdosing of medication regimen for other reason; Z20.822 Contact with and (suspected) exposure to COVID-19
CPT/HCPCS: 36415; 36592; 71045; 80048; 80053; 80076; 80320; 81001; 82009; 82550; 82805; 82962; 82977; 83036; 83605; 83615; 83690; 83735; 84100; 84145; 84484; 85025; 87040; 87635; 93005; 94760; 96361; 96365; 99284; C9803; J1644; J1815

== ENCOUNTER → 2021-03-08 15:17 | Outpatient (CLI) | payer OTHER, MEDICAID, SELFPAY ==
[2021-02-18 19:30] VITALS: BMI 16.0
--- NOTE | 2021-03-08 17:18 | DIAB.FU ---
Follow-up Diabetes Education Assessment Name: Sarabjit Jimenes Date: 03/08/21 Time: 320-420p Dx: Type II Diabetes Provider: Ashly Whipple presents today with her mom, Argelia, for DM follow-up. Did not bring BG log again to appointment. So, we could not discuss potential changes to insulin given no readings for review. States she has been mostly avoiding carbs, though denies that this is intentional. Has gained some weight. Her goal is 110#, and today's weight was 99#. Diet recall indicates 0-15g CHO at breakfast, none at lunch, and 25g CHO at dinner. Eats three times per day, mostly protein, no snacks usually. Endorses hyperglycemia when sick. States she will drink low carb beverages and check BG q couple hours when this occurs. Will drink mostly water and gatorade. Continues to be interested in CGM and pump system. CGM was rx'd to [facility] per her request, but upon further investigation [facility] does not fill Dexcom products. This RD/CDCES was advised to have her rx filled at [facility] or [facility]. This information was provided to Sarabjit today. She agreed to call or stop into PCP office to change rx location. If further barriers occur in getting her a CGM, will discuss with Dexcom rep. Sarabjit reports h/o insulin pump use without a CGM years ago. Reports an event at that time of BG <50 mg/dl. Medics were called and she was treated successfully for her hypo. She would certainly benefit from getting a CGM on board. Will continue to work on this with her. Physical Activity: No program, but reports improved pain in ankle. Self-Monitoring Blood Glucose: Did not bring meter. States dinner sometimes runs high (350 mg/dL or high indication in meter). States when meter reads high she will dose 10 units of novolog or humalog. Other times it seems she may be over dosing insulin at some dinner meals recently. Endorses more lows this past week. Reports waking with 43 or 60s mg/dL a couple times in the night. She is asking if she should have a snack when she wakes to urinate at 1-3am. Discussed potential for an HS snack. Diabetes Medications: 53u [employer] Novolog or humalog 6-15 units per her report Follows a correction scale of 1:50 units starting with 3u for BG between 150-200mg/dL. No I:C ratio. Pertinent Labs: HgA1c >14% 02/10/21 Past Medical History: (Last Updated 02/18/21 @ 21:42 by Amee Mendez [facility]) DKA (diabetic ketoacidoses) History of pyelonephritis History of ureter stent Hx of cataract surgery 10/06 right eye Hx of local excision of skin lesion Scalp lesion Irregular menstrual cycle Migraine headache Nephrolithiasis Noncompliance w/medication treatment due to intermit use of medication Status post laser lithotripsy of ureteral calculus Type 1 diabetes mellitus [place] teeth extracted Intervention: This participant was very receptive. Provided appropriate educational handouts. Discussed the following topics: Recent blood sugar trends Medication management: how she is dosing insulin. Seems likely she may need more education on I:C ratio or dosing for small, medium, large meals. Discussed this in brief, but hard to make reccs without BG log. Review of consistent nutrition intake, eating q 3-4 hours, pairing carbs with protein Brainstormed snack ideas Plan for getting CGM and pump Created SMART goals for patient self-care and success. Goals: Have protein with meals and snacks- met Bring meter next visit- not met Consider food log- not met Call to move rx for CGM- new Bring meter next visit- continued Try HS snack- new Follow-up: ANDI ARIZMENDI follow-up in 2-3 weeks Iliana Noguera RDN, KYLEIGH Certified Diabetes Care and Customer Service Correspondence Clerk P: [phone] Thank you for this referral
== END ==
PROVIDERS: PCP Student in an Organized Health Care Education/Training Program; Referring Provider Student in an Organized Health Care Education/Training Program; Visit Provider Student in an Organized Health Care Education/Training Program
DX: E11.9 Type 2 diabetes mellitus without complications (principal)
CPT/HCPCS: G0108

== ENCOUNTER 2021-03-23 00:22 | Observation (INO) | payer OTHER, MEDICAID, SELFPAY ==
[2021-02-18 19:30] VITALS: BMI 16.0
[2021-03-23] VITALS (15 sets, daily range): BP systolic 86–148; BP diastolic 54–90; PULSE 109–140; RESP 10–24; TEMP 35.9–36.9; O2SAT 93–100; BMI 18.5; BMI 18.1
[2021-03-23] MEDS: SODIUM CHLORIDE 0.9% 1,000 ML 1000 ML IV (00:43)
[2021-03-23 00:47] LABS: Add Manual Diff / Slide Review NO; Basophils Absolute Auto 100 /uL (0-100); Basophils Percent Auto 1.4 % (0-2); Eosinophils Absolute Auto 0 /uL (0-450); Eosinophils Percent Auto 0.1 % (2-4); Hematocrit 43.6 % (36-46); Hemoglobin 13.9 g/dL (12.0-16.0); Lymphocytes Absolute Auto 2300 /uL (1100-4500); Lymphocytes Percent Auto 22.8 % (25-40); Mean Corpuscular HGB Conc 31.8 % (30-36); Mean Corpuscular Hemoglobin 31.8 PG (26-34); Mean Corpuscular Volume 100.1 fL (80-100); Monocytes Absolute Auto 500 /uL (0-900); Monocytes Percent Auto 5.1 % (3-14); Neutrophils Absolute Auto 7100 /uL (1500-7000); Neutrophils Percent Auto 70.6 % (50-75); Platelet Count 442 X10^3/uL (150-400); Red Blood Cell Count 4.36 X10^6/uL (4.0-5.2); Red Cell Distribution Width 14.2 % (11.6-14.8); White Blood Cell Count 10.1 X10^3/uL (4.5-11.0)
[2021-03-23 00:51] LABS: HCO3 VBG 3 mmol/L (23-28); Oxygen Saturation VBG 66 % (70-75); PCO2 VBG 14.2 mmHg (45-50); PO2 VBG 52 mmHg (35-45); Total CO2 VBG < 5 mmol/L (24-29); pH VBG 6.96 (7.33-7.43)
[2021-03-23 00:59] LABS: Alanine Aminotransferase 26 IU/L (<35); Albumin 4.7 g/dL (3.5-5.0); Albumin Globulin Ratio 1.5 (1.0-2.8); Alkaline Phosphatase 197 U/L (38-126); Aspartate Aminotransferase 27 IU/L (14-36); BUN Creatinine Ratio 32.2 (6-22); Bilirubin Total 0.4 mg/dL (0.2-1.3); Blood Urea Nitrogen 28 mg/dL (7-17); Calcium 9.8 mg/dL (8.4-10.2); Chloride 97 mmol/L (98-107); Estimated Glomerular Filt Rate > 60.0 mL/min (>60); Globulin 3.1 g/dL (1.7-4.1); HEMOLYSIS < 15 (0-50); Sodium 135 mmol/L (137-145); Total Protein 7.8 g/dL (6.3-8.2)
[2021-03-23 01:00] LABS: Lactate (Lactic Acid) 1.2 mmol/L (0.7-2.1); Lipase 178 U/L (23-300); Magnesium 2.6 mg/dL (1.6-2.3); Phosphorous 7.1 mg/dL (2.5-4.5)
--- NOTE | 2021-03-23 01:00 | ED_ITS ---
HPI - General Adult General Chief complaint: Diabetic Problem Stated complaint: diabetic keto acidosis x3 hours Time Seen by Provider: 03/23/21 00:30 Source: patient and family Mode of arrival: Ambulatory Limitations: no limitations History of Present Illness HPI narrative: Patient is a 31-year-old female. Well known to myself in this emergency department as having diabetes and frequently having issues with DKA. She states that 2 days ago she started to not feel very well. At this had vomiting since then. Worsened until today when she was persuaded to come to the emergency department by family. She reports ?pain all over ?she states she has been taking all of her medications as directed. Has been eating well however has had quite a bit of vomiting. Related Data Home Medications Medication Instructions Recorded Confirmed glucagon (human recombinant) 1 mg 1 mg SUBCUT DIRECTED 02/16/19 02/19/21 solution for injection (Glucagon Emergency Kit) insulin degludec 200 unit/mL (3 53 unit SUBCUT 1100 11/21/19 02/19/21 mL) subcutaneous pen insulin aspart U-100 100 unit/mL 10 unit SUBCUT AC 05/20/20 02/19/21 (3 mL) subcutaneous pen (Novolog Flexpen U-100 Insulin aspart) diphenhydramine HCl 50 mg capsule 50 mg PO BEDTIME PRN 09/29/20 02/19/21 Previous Rx's Medication Instructions Recorded glucose 4 gram chewable tablet 4 gram PO Q15M PRN #30 tab 12/12/18 Allergies Allergy/AdvReac Type Severity Reaction Status Date / Time abdalla [ABDALLA] Allergy Intermediate Hives, Verified 02/18/21 18:05 pruritus iodine [IODINE] Allergy Intermediate rash, itchy Verified 02/18/21 18:05 morphine Allergy Intermediate Difficulty Verified 02/18/21 18:05 Breathing shellfish derived Allergy Intermediate rash Verified 02/18/21 18:05 [SHELLFISH DERIVED] adhesive [ADHESIVE] Allergy Unknown tape Verified 02/18/21 18:05 latex [LATEX] Allergy Unknown Hives Verified 02/18/21 18:05 Review of Systems Constitutional Constitutional: Reports body ache(s), Reports fatigue and Denies fever(s) ENT Ears, Nose, Mouth, and Throat: Reports system reviewed and no additional complaints, except as documented Cardiovascular Cardiovascular: Reports system reviewed and no additional complaints, except as documented Respiratory Respiratory: Reports system reviewed and no additional complaints, except as documented Gastrointestinal Gastrointestinal: Reports system reviewed and no additional complaints, except as documented, Denies change in bowel habits, Reports nausea and Reports vomiting Genitourinary Genitourinary: Reports system reviewed and no additional complaints, except as documented Musculoskeletal Comments: Body aches Integumentary/Breasts Skin/Breast: Reports system reviewed and no additional complaints, except as documented Neurologic Neurologic: Reports system reviewed and no additional complaints, except as documented Psychiatric Psychiatric: Reports system reviewed and no additional complaints, except as documented Endocrine Endocrine: Reports fatigue Hematologic/Lymphatic On Anticoagulants: No Allergic/Immunologic Allergic/Immunologic: Reports system reviewed and no additional complaints, except as documented Patient History Medical History DKA (diabetic ketoacidoses) History of pyelonephritis Irregular menstrual cycle Migraine headache Nephrolithiasis Noncompliance w/medication treatment due to intermit use of medication Type 1 diabetes mellitus Surgical History History of ureter stent Hx of cataract surgery Hx of local excision of skin lesion Status post laser lithotripsy of ureteral calculus [place] teeth extracted Family History Father In good health Mother Cardiac disease Social History details: Engaged household members: significant other Smoking Status: Never smoker alcohol intake: never Smoking Status: Never smoker alcohol intake frequency: holidays/special occasions only Substance Use Type: does not use Exam Initial Vital Signs Initial Vital Signs: Vital Signs Temperature 98 F 03/23/21 00:51 Pulse Rate 123 H 03/23/21 00:51 Respiratory Rate 24 03/23/21 00:51 Blood Pressure 148/90 H 03/23/21 00:51 Pulse Oximetry 100 03/23/21 00:51 Const General: cooperative and frail appearing HENMT Head: normal to inspection and normocephalic Eyes General: appearance normal, both eyes and all related structures Resp Effort & Inspection: not labored and tachypneic Auscultation: clear to auscultation bilaterally Cardio Rate: tachycardic Rhythm: regular rhythm GI Palpation: No firm, No guarding and No tender Skin General: no rashes or lesions noted Neuro General: patient alert, patient awake, patient oriented x3 and moves all extremities Extrem General: normal to inspection and capillary refill normal Psych Appearance: grossly normal and well kempt Scores GCS [place] coma scale eye opening: Spontaneous [place] coma scale verbal response: Orientated [place] coma scale motor response: Obey commands Alex coma scale total score: 15 Course Orders Ordered: ED Orders 03/23/21 00:32 Urinalysis and Microscopic Stat 03/23/21 00:38 VBG [Venous Blood Gas] Stat 03/23/21 00:39 Complete Blood Count AUTO DIFF Stat Comprehensive Metabolic Panel Stat Ketones (Beta-Hydroxybutyrate) Stat Lactate (Lactic Acid) Stat Lipase Stat Magnesium Stat Phosphorous Stat Test Serum,Qual Stat Procalcitonin Stat 03/23/21 00:42 COVID19 - ADMIT (PARQUETRY FLOOR LAYER swab/PCR) Stat 03/23/21 01:00 Blood Culture Stat Acetaminophen (Acetaminophen 325 Mg Tablet) 650 mg PO Q6HR PRN PRN Reason: Fever Enoxaparin Sodium (Enoxaparin 40 Mg/0.4 Ml Syringe) 40 mg SUBCUT DAILY BLAISE Sodium Chloride (Normal Saline 0.9%) 1,000 mls @ 150 mls/hr IV CONT BLAISE Last Admin: 03/23/21 01:44 Dose: 150 mls/hr Documented by: CHRIS INSULIN DRIP PREMIX (Myxredlin Drip Premix) 100 unit in 100 mls @ 6 mls/hr IV TITRATE BLAISE; Protocol Last Admin: 03/23/21 01:45 Dose: 6 mls/hr, 6 mls/hr Documented by: CHRIS Cosigned by: YAMILETH Metoclopramide HCl (Metoclopramide 10 Mg/2 Ml Inj) 10 mg IV Q6HR PRN PRN Reason: Nausea And Vomiting Naloxone HCl (Naloxone 0.4 Mg/Ml Vial) 0.2 mg IV Q2MIN PRN PRN Reason: Opiate Reversal Ondansetron HCl (Ondansetron 4 Mg/2 Ml Inj) 4 mg IV Q6HR PRN PRN Reason: Nausea And Vomiting Pantoprazole Sodium (Pantoprazole 40 Mg Vial) 40 mg IV DAILY BLAISE Discontinued Medications Hydromorphone HCl (Hydromorphone 1 Mg Inj) 1 mg IV NOW ONE Stop: 03/23/21 00:55 Last Admin: 03/23/21 01:15 Dose: 1 mg Documented by: CHRIS Sodium Chloride (Normal Saline 0.9%) 1,000 mls @ 1,000 mls/hr IV BOLUS ONE Stop: 03/23/21 01:30 Last Admin: 03/23/21 00:43 Dose: 1,000 mls/hr Documented by: SILVIA INSULIN DRIP PREMIX (Myxredlin Drip Premix) 100 unit in 100 mls @ 6 mls/hr IV TITRATE BLAISE; Protocol Ondansetron HCl (Ondansetron 4 Mg/2 Ml Inj) 4 mg IV NOW ONE Stop: 03/23/21 00:55 Last Admin: 03/23/21 01:15 Dose: 4 mg Documented by: CHRIS Vital Signs Vital signs: Vital Signs - 8 hr 03/23/21 00:51 Temperature 98 F Pulse Rate 123 H Respiratory Rate 24 Blood Pressure 148/90 H Pulse Oximetry 100 Medical Decision Making Medical Records Medical records reviewed: Yes I reviewed the patient's medical records. Lab Data Lab results reviewed: Yes I reviewed the patient's lab results. Result diagrams: 03/23/21 00:39 03/23/21 00:39 Labs: Lab Results 03/23/21 03/23/21 03/23/21 Range/Units 00:38 00:39 00:39 WBC 10.1 (4.5-11.0) X10^3/uL RBC 4.36 (4.0-5.2) X10^6/uL Hgb 13.9 (12.0-16.0) g/dL Hct 43.6 (36-46) % MCV 100.1 H (80-100) fL MCH 31.8 (26-34) PG MCHC 31.8 (30-36) % RDW 14.2 (11.6-14.8) % Plt Count 442 H (150-400) X10^3/uL Neut % (Auto) 70.6 (50-75) % Lymph % (Auto) 22.8 L (25-40) % Martin % (Auto) 5.1 (3-14) % Eos % (Auto) 0.1 L (2-4) % Baso % (Auto) 1.4 (0-2) % Neut # (Auto) 7100 H (6248-0943) /uL Lymph # (Auto) 2300 (3945-4749) /uL Martin # (Auto) 500 (0-900) /uL Eos # (Auto) 0 (0-450) /uL Baso # (Auto) 100 (0-100) /uL VBG pH 6.96 L* (7.33-7.43) VBG pCO2 14.2 L (45-50) mmHg VBG pO2 52 H (35-45) mmHg VBG HCO3 3 L (23-28) mmol/L VBG Total CO2 < 5 L (24-29) mmol/L VBG O2 Saturation 66 L (70-75) % VBG Base Excess -29.0 L (0-4) mmol/L Sodium 135 L (137-145) mmol/L Potassium 5.4 H (3.4-5.1) mmol/L Chloride 97 L (98-107) mmol/L Carbon Dioxide < 5 L* (22-32) mmol/L BUN 28 H (7-17) mg/dL Creatinine 0.87 (0.52-1.04) mg/dL Estimated GFR > 60.0 (>60) mL/min BUN/Creatinine Ratio 32.2 H (6-22) Glucose 719 H* (70-100) mg/dL Lactate (0.7-2.1) mmol/L Calcium 9.8 (8.4-10.2) mg/dL Phosphorus (2.5-4.5) mg/dL Magnesium (1.6-2.3) mg/dL Total Bilirubin 0.4 (0.2-1.3) mg/dL AST 27 (14-36) IU/L ALT 26 (<35) IU/L Alkaline Phosphatase 197 H (38-126) U/L Total Protein 7.8 (6.3-8.2) g/dL Albumin 4.7 (3.5-5.0) g/dL Globulin 3.1 (1.7-4.1) g/dL Albumin/Globulin Ratio 1.5 (1.0-2.8) Lipase (23-300) U/L Procalcitonin (<0.5) ng/mL Serum , Qual (Negative) Ketones 20.31 H (<0.27) mmol/L SARS-CoV-2 (PCR) (Negative) 03/23/21 03/23/21 03/23/21 Range/Units 00:39 00:39 00:39 WBC (4.5-11.0) X10^3/uL RBC (4.0-5.2) X10^6/uL Hgb (12.0-16.0) g/dL Hct (36-46) % MCV (80-100) fL MCH (26-34) PG MCHC (30-36) % RDW (11.6-14.8) % Plt Count (150-400) X10^3/uL Neut % (Auto) (50-75) % Lymph % (Auto) (25-40) % [place] % (Auto) (3-14) % Eos % (Auto) (2-4) % Baso % (Auto) (0-2) % Neut # (Auto) (4526-4324) /uL Lymph # (Auto) (2956-9359) /uL Martin # (Auto) (0-900) /uL Eos # (Auto) (0-450) /uL Baso # (Auto) (0-100) /uL VBG pH (7.33-7.43) VBG pCO2 (45-50) mmHg VBG pO2 (35-45) mmHg VBG HCO3 (23-28) mmol/L VBG Total CO2 (24-29) mmol/L VBG O2 Saturation (70-75) % VBG Base Excess (0-4) mmol/L Sodium (137-145) mmol/L Potassium (3.4-5.1) mmol/L Chloride (98-107) mmol/L Carbon Dioxide (22-32) mmol/L BUN (7-17) mg/dL Creatinine (0.52-1.04) mg/dL Estimated GFR (>60) mL/min BUN/Creatinine Ratio (6-22) Glucose (70-100) mg/dL Lactate 1.2 (0.7-2.1) mmol/L Calcium (8.4-10.2) mg/dL Phosphorus 7.1 H (2.5-4.5) mg/dL Magnesium 2.6 H (1.6-2.3) mg/dL Total Bilirubin (0.2-1.3) mg/dL AST (14-36) IU/L ALT (<35) IU/L Alkaline Phosphatase (38-126) U/L Total Protein (6.3-8.2) g/dL Albumin (3.5-5.0) g/dL Globulin (1.7-4.1) g/dL Albumin/Globulin Ratio (1.0-2.8) Lipase 178 (23-300) U/L Procalcitonin 0.10 (<0.5) ng/mL Serum , Qual Negative (Negative) Ketones (<0.27) mmol/L SARS-CoV-2 (PCR) (Negative) 03/23/21 Range/Units 00:42 WBC (4.5-11.0) X10^3/uL RBC (4.0-5.2) X10^6/uL Hgb (12.0-16.0) g/dL Hct (36-46) % MCV (80-100) fL MCH (26-34) PG MCHC (30-36) % RDW (11.6-14.8) % Plt Count (150-400) X10^3/uL Neut % (Auto) (50-75) % Lymph % (Auto) (25-40) % Martin % (Auto) (3-14) % Eos % (Auto) (2-4) % Baso % (Auto) (0-2) % Neut # (Auto) (2412-4193) /uL Lymph # (Auto) (5791-2477) /uL Martin # (Auto) (0-900) /uL Eos # (Auto) (0-450) /uL Baso # (Auto) (0-100) /uL VBG pH (7.33-7.43) VBG pCO2 (45-50) mmHg VBG pO2 (35-45) mmHg VBG HCO3 (23-28) mmol/L VBG Total CO2 (24-29) mmol/L VBG O2 Saturation (70-75) % VBG Base Excess (0-4) mmol/L Sodium (137-145) mmol/L Potassium (3.4-5.1) mmol/L Chloride (98-107) mmol/L Carbon Dioxide (22-32) mmol/L BUN (7-17) mg/dL Creatinine (0.52-1.04) mg/dL Estimated GFR (>60) mL/min BUN/Creatinine Ratio (6-22) Glucose (70-100) mg/dL Lactate (0.7-2.1) mmol/L Calcium (8.4-10.2) mg/dL Phosphorus (2.5-4.5) mg/dL Magnesium (1.6-2.3) mg/dL Total Bilirubin (0.2-1.3) mg/dL AST (14-36) IU/L ALT (<35) IU/L Alkaline Phosphatase (38-126) U/L Total Protein (6.3-8.2) g/dL Albumin (3.5-5.0) g/dL Globulin (1.7-4.1) g/dL Albumin/Globulin Ratio (1.0-2.8) Lipase (23-300) U/L Procalcitonin (<0.5) ng/mL Serum , Qual (Negative) Ketones (<0.27) mmol/L SARS-CoV-2 (PCR) Negative (Negative) MDM Narrative Medical decision making narrative: Patient is frail appearing. Is cachectic. Tachycardic. Tachypneic. Blood glucose greater than 700. PH 6.9. Anion gap of 33. Potassium 5.4. Patient was started on fluids. Will start on insulin. No signs of infection. test negative. Has no specific pain but just has overall ?body pain ?hold on any radiologic studies for now. Discussed the case with MARGO Scruggs the [facility] provider who will admit for further evaluation treatment. Discussed the need for admission with the patient. She expressed understanding and agreement. Critical Care Time Critical Care Time Critical Care Time: Yes Total Critical Care Time: 35 Attestation: The high probability of a clinically significant, sudden or life threatening deterioration of the endocrine system(s) required my full and direct attention, intervention and personal management. The aggregate critical care time was [35 minutes. This time is in addition to time spent performing reported procedures but includes the following: [x] Data Review and interpretation [x] Patient assessment and monitoring of vital signs [x] Documentation [x] Medication orders and management Discharge Plan Departure Patient Disposition: Admitted As Inpatient Clinical Impression: DKA (diabetic ketoacidoses) Admit Date/Time: 03/23/21 01:29 Admit Provider: Doris Scruggs
[2021-03-23 01:05] LABS: Pregnancy Test Serum,Qual Negative (Negative)
[2021-03-23 01:10] LABS: Potassium 5.4 mmol/L (3.4-5.1)
[2021-03-23 01:12] LABS: Carbon Dioxide < 5 mmol/L (22-32); Glucose 719 mg/dL (70-100)
[2021-03-23] MEDS: HYDROMORPHONE 1 MG INJ IV ×4 (01:15→22:46)
[2021-03-23] MEDS: ONDANSETRON 4 MG/2 ML INJ IV ×2 (01:15→07:55)
[2021-03-23 01:33] LABS: Ketones (Beta-Hydroxybutyrate) 20.31 mmol/L (<0.27)
--- NOTE | 2021-03-23 01:39 | P.HP_ITS ---
History of Present Illness <SHARYN Hurd - Last Filed: 03/23/21 04:41> History of Present Illness Date Patient Seen: 03/23/21 Time Patient Seen: 02:37 Chief complaint: diabetic keto acidosis x3 hours Narrative: Romi Jimenes is a 31-year-old type 1 diabetic female well known to staff with a history of multiple admissions for diabetic ketoacidosis, was in her usual state of health when she started to have significant nausea and vomitingShe is unable to provide a history as she appears to be quite confused.? Per the ED provider, she was doing well even having had recent ankle surgery, but became very sick today andThe patient was recently admitted on February 18 and discharged next day for the same thing and has had multiple admissions over the past 2 years for diabetic ketoacidosis.? Patient is unable to provide me with the review of systems. In the emergency department they started her on an insulin drip without a josep nicole.? At that time she was reported to have Kussmaul pattern breathing. She is afebrile, blood pressure 148/90, heart rate 123, respiratory rate of 24 oxygen saturation of 100% on room air, she weighs 44 kilograms with a BMI of 16.? CBC is unremarkable,platelet count is 442, VBG pH was 6.96, VBG pCO2 was 14.2, VBG PO2 was 52, VBG bicarb was 3, VBG total CO2 was less than 5, VBG O2 saturation was 66% and anion gap is 37.? Sodium was 135, potassium 5.4, chloride 98, bicarb less than 5, BUN 28, creatinine .87 which is greater than her baseline with a EGFR of greater than 30, glucose 719, lactate 1.2, phosphorus 7.1, mag 2.6, alk- phos 197, ketones 20.3, and COVID-19 PCR was negative. Patient History <SHARYN Hurd - Last Filed: 03/23/21 04:41> Medical History DKA (diabetic ketoacidoses) History of pyelonephritis Irregular menstrual cycle Migraine headache Nephrolithiasis Noncompliance w/medication treatment due to intermit use of medication Type 1 diabetes mellitus Surgical History History of ureter stent Hx of cataract surgery Hx of local excision of skin lesion Status post laser lithotripsy of ureteral calculus [place] teeth extracted Family & Social History Family History Father In good health Mother Cardiac disease Social History: household members significant other Safety & Behavioral: Feels Safe in Current Yes Environment Tobacco & Substance use: Smoking Status Never smoker alcohol intake never alcohol intake frequency holiday/special occasion Substance Use Type does not use Meds <SHARYN Hurd - Last Filed: 03/23/21 04:41> Home Medications and Allergies Home Medications Medication Instructions Recorded Confirmed Type glucose 4 gram chewable tablet 4 gram PO Q15M PRN #30 tab 12/12/18 03/23/21 Rx glucagon (human recombinant) 1 mg 1 mg SUBCUT DIRECTED 02/16/19 03/23/21 History solution for injection (Glucagon Emergency Kit) insulin degludec 200 unit/mL (3 53 unit SUBCUT 1100 11/21/19 03/23/21 History mL) subcutaneous pen insulin aspart U-100 100 unit/mL 10 unit SUBCUT AC 05/20/20 03/23/21 History (3 mL) subcutaneous pen (Novolog Flexpen U-100 Insulin aspart) diphenhydramine HCl 50 mg capsule 50 mg PO BEDTIME PRN 09/29/20 03/23/21 History Allergies Allergy/AdvReac Type Severity Reaction Status Date / Time abdalla [ABDALLA] Allergy Intermediate Hives, Verified 02/18/21 18:05 pruritus iodine [IODINE] Allergy Intermediate rash, itchy Verified 02/18/21 18:05 morphine Allergy Intermediate Difficulty Verified 02/18/21 18:05 Breathing shellfish derived Allergy Intermediate rash Verified 02/18/21 18:05 [SHELLFISH DERIVED] adhesive [ADHESIVE] Allergy Unknown tape Verified 02/18/21 18:05 latex [LATEX] Allergy Unknown Hives Verified 02/18/21 18:05 Review of Systems <SHARYN Hurd - Last Filed: 03/23/21 04:41> Review of Systems ROS: Yes unobtainable due to mental status Exam <SHARYN Hurd - Last Filed: 03/23/21 04:41> Vital Signs (past 8 hours): - 03/23/21 00:51 Temperature 98 F Pulse Rate 123 H Respiratory Rate 24 Blood Pressure 148/90 H Pulse Oximetry 100 Oxygen Delivery Method Room Air Narrative Exam Narrative: Gen: Alert, oriented, thin 31 y.o. female, ill appearing HEENT: normocephalic, atraumatic, conjunctiva clear, sclera non-icteric, oral mucosa pink and moist Neck: supple, full ROM, no JVD, trachea is midline Resp: Bilateral course lung sounds, non-labored breathing CV: RRR, no murmur or rubs Abd: soft, non-tender, normoactive BTs Skin: no lesions or rashes, dry and intact Neuro: Alert and oriented X 4 w/no focal deficits. Speech clear and coherent. Extremities: moves all 4 extremities, is ambulatory, negative Namita?s sign Psyche: normal mood and affect. Objective <SHARYN Hurd - Last Filed: 03/23/21 04:41> Labs Result Diagrams: 03/23/21 00:39 03/23/21 12:57 Labs: Laboratory Results - last 24 hr 03/23/21 03/23/21 03/23/21 00:38 00:39 00:39 WBC 10.1 RBC 4.36 Hgb 13.9 Hct 43.6 MCV 100.1 H MCH 31.8 MCHC 31.8 RDW 14.2 Plt Count 442 H Neut % (Auto) 70.6 Lymph % (Auto) 22.8 L [place] % (Auto) 5.1 Eos % (Auto) 0.1 L Baso % (Auto) 1.4 Neut # (Auto) 7100 H Lymph # (Auto) 2300 [place] # (Auto) 500 Eos # (Auto) 0 Baso # (Auto) 100 VBG pH 6.96 L* VBG pCO2 14.2 L VBG pO2 52 H VBG HCO3 3 L VBG Total CO2 < 5 L VBG O2 Saturation 66 L VBG Base Excess -29.0 L Sodium 135 L Potassium 5.4 H Chloride 97 L Carbon Dioxide < 5 L* BUN 28 H Creatinine 0.87 Estimated GFR > 60.0 BUN/Creatinine Ratio 32.2 H Glucose 719 H* Lactate Calcium 9.8 Phosphorus Magnesium Total Bilirubin 0.4 AST 27 ALT 26 Alkaline Phosphatase 197 H Total Protein 7.8 Albumin 4.7 Globulin 3.1 Albumin/Globulin Ratio 1.5 Lipase Procalcitonin Serum , Qual Ketones 20.31 H 03/23/21 03/23/21 03/23/21 00:39 00:39 00:39 WBC RBC Hgb Hct MCV MCH MCHC RDW Plt Count Neut % (Auto) Lymph % (Auto) [place] % (Auto) Eos % (Auto) Baso % (Auto) Neut # (Auto) Lymph # (Auto) [place] # (Auto) Eos # (Auto) Baso # (Auto) VBG pH VBG pCO2 VBG pO2 VBG HCO3 VBG Total CO2 VBG O2 Saturation VBG Base Excess Sodium Potassium Chloride Carbon Dioxide BUN Creatinine Estimated GFR BUN/Creatinine Ratio Glucose Lactate 1.2 Calcium Phosphorus 7.1 H Magnesium 2.6 H Total Bilirubin AST ALT Alkaline Phosphatase Total Protein Albumin Globulin Albumin/Globulin Ratio Lipase 178 Procalcitonin 0.10 Serum , Qual Negative Ketones Assessment & Plan <Doris SHARYN Scruggs - Last Filed: 03/23/21 04:41> Assessment & Plan narrative: Sarabjit Jimenes will be admitted for correction of DKA. 1. Diabetic ketoacidosis, acute, present on admission * She was started on a insulin drip in the emergency department and this will be continued in the ICU. * She continues to be in ketoacidosis with a gap of 28 calculated on the second BMP * She remains NPO 2. Concern for infection and or * White count is normal, chest x-ray is negative for an acute cardiopulmonary process and UA is still pending when the patient is able to void. * Serum HCG was negative VTE Prophylaxis: Wells risk score 0 Enoxaparin 40 mg subQ once daily Patient is admitted to the inpatient service due to the severity of disease, risks of further disease progression and this stay is expected to exceed 2 midnights. FEN: IV fluids: NS at 150 ml/hour, diet: NPO, labs: CBC, BMP per protocol until gap is closed, liver enzymes, Mag, PT/INR [facility], care and involvement in the patient?s care is appreciated. Dispo: probable discharge to home Code status: Full Code presumed as patient is unable to articulate. Previously full code with has her surrogate. [X] I have utilized all available immediate resources to obtain, update, or review of the patient's current medications Time Spent With Patient Critical Care time: I spent a total of [] minutes of critical care time on this patient's care today; this time is exclusive of procedural time. <Gale Arita MD - Last Filed: 03/23/21 14:47> Assessment & Plan narrative: Sarabjit Jimenes will be admitted for correction of DKA. 1. Diabetic ketoacidosis, acute, present on admission * She was started on a insulin drip in the emergency department and this will be continued in the ICU. * She continues to be in ketoacidosis with a gap of 28 calculated on the second BMP * She remains NPO 2. Concern for infection and or * White count is normal, chest x-ray is negative for an acute cardiopulmonary process and UA is still pending when the patient is able to void. * Serum HCG was negative VTE Prophylaxis: Wells risk score 0 Enoxaparin 40 mg subQ once daily Patient is admitted to the inpatient service due to the severity of disease, risks of further disease progression and this stay is expected to exceed 2 m idnights. FEN: IV fluids: NS at 150 ml/hour, diet: NPO, labs: CBC, BMP per protocol until gap is closed, liver enzymes, Mag, PT/INR [facility], care and involvement in the patient?s care is appreciated. Dispo: probable discharge to home Code status: Full Code presumed as patient is unable to articulate. Previously full code with has her surrogate. [X] I have utilized all available immediate resources to obtain, update, or review of the patient's current medications Patient was seen and examined today, she remains markedly acidotic. She was given 4 L of lactated Ringer's, she remains hyperglycemic and acidotic . Her insulin drip was increased to 8 units an hour, continue checking BMP every 4 hours. Her pH is now over 7, no bicarb indicated. Will continue to monitor closely.
[2021-03-23 01:43] LABS: COVID19 - ADMIT (NP swab/PCR) Negative (Negative)
[2021-03-23] MEDS: SODIUM CHLORIDE 0.9% 1,000 ML 150 ML IV ×2 (01:44→11:58)
[2021-03-23] MEDS: INSULIN DRIP PREMIX 100 UNIT/100 ML PLAST..BAG 6 UNIT IV (01:45)
--- NOTE | 2021-03-23 02:36 | DI.RAD.S_ITS ---
PROCEDURE: XR CHEST 1V INDICATIONS: course lung sounds TECHNIQUE: One view of the chest was acquired. COMPARISON: [facility], CR, XR CHEST FOR PICC 1V, 02/18/2021, 23:45. FINDINGS: Surgical changes and devices: None. Lungs and pleura: Lungs are clear. No pleural effusions or pneumothorax. Mediastinum: Mediastinal contours appear normal. Heart size is normal. Bones and chest wall: No suspicious bony lesions. Overlying soft tissues appear unremarkable. IMPRESSION: No acute cardiopulmonary abnormality. Dictated by: Luis F Mahmood M.D. on 03/23/2021 at 7:59 Approved by: Luis F Mahmood M.D. on 03/23/2021 at 8:00
--- NOTE | 2021-03-23 04:07 | PC.ADMIT ---
Addendum entered by Amee Esparza R.N. 03/23/21 10:38: Dexicom CGM order obtained from Ellen YAN, will be ordered from [facility] for instal and use in next 24-48 hours. Education started, this seemed to overwhlem Pt at this time, teaching to be continued when appropriate Addendum entered by Amee Esparza R.N. 03/23/21 10:36: Bolus of LR L x3 up and infusing with Insulin at 6.5units/hr. CBG 500 @ 1015 check, obtained lab draw and sent to lab. Pt is comfortable after IV pain control, education provided about rational for decreasing opiate use, Pt tearful with this update. NPO with ice chips at bedside per request. Addendum entered by Amee Esparza R.N. 03/23/21 07:21: UA sent to lab, CBG remains elevated and insulin 6.5units/hr. Addendum entered by Amee Esparza R.N. 03/23/21 06:10: Insulin gtt remains at 6.5units/hr with steady decrease to CBG. Continue hourly checks. Next BMP and VBG due@ 0800. PIV both flushing well. Lab has been able to draw and Pt states I dont think I need any midline or PICC lines Admission completed, and Pt confirms home meds per list. Original Note: [email or web address] Admission Note: Pt arrived to Room 230, slide board used for transfer. Pt is tearful and crying on arrival, Please, Pt is nonspecific in complaints, unable to verbalize pain or emotional distress. CBG on arrival >500, insulin gtt infusing @ 6units/hr with NaCl to PIV. Lab order to recheck elevated CBG. Pt changed and skin check completed with Lilian Khan on tele. The patient,Sarabjit Jimenes,31 y/o, was given written information regarding hospital policies, unit procedures and contact persons. Patient's smoking status: Never smoker. Vital Signs - 8 hr 03/23/21 00:51 03/23/21 01:01 03/23/21 01:30 Temperature 98 F Pulse Rate 123 H 122 H 115 H Respiratory Rate 24 23 16 Blood Pressure 148/90 H Pulse Oximetry 100 100 100 03/23/21 01:55 03/23/21 02:00 03/23/21 02:30 Temperature Pulse Rate 110 H 111 H 111 H Respiratory Rate 14 12 13 Blood Pressure 100/66 101/64 103/62 Pulse Oximetry 100 99 99 03/23/21 03:05 03/23/21 03:08 03/23/21 03:10 Temperature 96.7 F L Pulse Rate 119 H 124 H 120 H Respiratory Rate 16 19 Blood Pressure 109/63 109/63 Pulse Oximetry
[2021-03-23 04:11] LABS: BUN Creatinine Ratio 34.4 (6-22); Blood Urea Nitrogen 31 mg/dL (7-17); Calcium 8.9 mg/dL (8.4-10.2); Chloride 103 mmol/L (98-107); Estimated Glomerular Filt Rate > 60.0 mL/min (>60); HEMOLYSIS < 15 (0-50); Potassium 4.9 mmol/L (3.4-5.1); Sodium 136 mmol/L (137-145)
[2021-03-23 04:22] LABS: Carbon Dioxide < 5 mmol/L (22-32)
[2021-03-23 04:23] LABS: Glucose 624 mg/dL (70-100)
--- NOTE | 2021-03-23 04:53 | P.TELICUCN_ITS ---
History of Present Illness Consult details Date Patient Seen: 03/23/21 Chief complaint: diabetic keto acidosis x3 hours :: This patient was seen via real time interactive two-way audiovisual telecommunication @ 2422. Narrative: 31 y.o. w/ T1DM and frequent DKA due to medication noncompliance who came in with nausea and vomiting. ED workup revealed recurrent DKA with initial VBG pH of 6.96, anion gap of 37 and glucose of 719. She has been started on the DKA protocol. Urine HCG was (-). [facility] Medical History DKA (diabetic ketoacidoses) History of pyelonephritis Irregular menstrual cycle Migraine headache Nephrolithiasis Noncompliance w/medication treatment due to intermit use of medication Type 1 diabetes mellitus Surgical History History of ureter stent Hx of cataract surgery Hx of local excision of skin lesion Status post laser lithotripsy of ureteral calculus Mize teeth extracted Family History Father In good health Mother Cardiac disease Social History details: Engaged household members: significant other and family Smoking Status: Never smoker alcohol intake: never Current Medications Current Medications Medications: Home Medications glucose 4 gram chewable tablet 4 gram PO Q15M PRN #30 tab 12/12/18 [Rx Confirmed 02/19/21] glucagon (human recombinant) 1 mg solution for injection (Glucagon Emergency Kit) 1 mg SUBCUT DIRECTED 02/16/19 [History Confirmed 02/19/21] insulin degludec 200 unit/mL (3 mL) subcutaneous pen 53 unit SUBCUT 1100 11/21/19 [History Confirmed 02/19/21] insulin aspart U-100 100 unit/mL (3 mL) subcutaneous pen (Novolog Flexpen U-100 Insulin aspart) 10 unit SUBCUT AC 05/20/20 [History Confirmed 02/19/21] diphenhydramine HCl 50 mg capsule 50 mg PO BEDTIME PRN 09/29/20 [History Confirmed 02/19/21] Visit Medications (administered) Generic Name Dose Route Start Last Admin Trade Name Freq PRN Reason Stop Dose Admin Sodium Chloride 1,000 mls @ 150 mls/hr 03/23/21 00:45 03/23/21 03:21 Normal Saline 0.9% IV 150 mls/hr CONT BLAISE Infusion INSULIN DRIP PREMIX 100 unit in 100 mls @ 6 mls/hr 03/23/21 01:30 03/23/21 04:18 Myxredlin Drip Premix IV 6.5 mls/hr TITRATE BLAISE 6.5 mls/hr Titration Protocol Review of Systems Review of Systems Narrative: not performed as patient is sleeping Exam Vital Signs (past 8 hours): - 03/23/21 00:51 03/23/21 01:01 03/23/21 01:30 Temperature 98 F Pulse Rate 123 H 122 H 115 H Respiratory Rate 24 23 16 Blood Pressure 148/90 H Pulse Oximetry 100 100 100 03/23/21 01:55 03/23/21 02:00 03/23/21 02:30 Temperature Pulse Rate 110 H 111 H 111 H Respiratory Rate 14 12 13 Blood Pressure 100/66 101/64 103/62 Pulse Oximetry 100 99 99 03/23/21 03:05 03/23/21 03:08 03/23/21 03:10 Temperature 96.7 F L Pulse Rate 119 H 124 H 120 H Respiratory Rate 16 19 Blood Pressure 109/63 109/63 Pulse Oximetry Oxygen Delivery Method Room Air Const General: comfortable Nutritional Appearance: underweight Resp Effort & Inspection: normal respiratory effort Objective Labs Result Diagrams: 03/23/21 00:39 03/23/21 03:48 Labs: Laboratory Results - last 24 hr 03/23/21 03/23/21 03/23/21 00:38 00:39 00:39 WBC 10.1 RBC 4.36 Hgb 13.9 Hct 43.6 MCV 100.1 H MCH 31.8 MCHC 31.8 RDW 14.2 Plt Count 442 H Neut % (Auto) 70.6 Lymph % (Auto) 22.8 L [place] % (Auto) 5.1 Eos % (Auto) 0.1 L Baso % (Auto) 1.4 Neut # (Auto) 7100 H Lymph # (Auto) 2300 [place] # (Auto) 500 Eos # (Auto) 0 Baso # (Auto) 100 VBG pH 6.96 L* VBG pCO2 14.2 L VBG pO2 52 H VBG HCO3 3 L VBG Total CO2 < 5 L VBG O2 Saturation 66 L VBG Base Excess -29.0 L Sodium 135 L Potassium 5.4 H Chloride 97 L Carbon Dioxide < 5 L* BUN 28 H Creatinine 0.87 Estimated GFR > 60.0 BUN/Creatinine Ratio 32.2 H Glucose 719 H* Lactate Calcium 9.8 Phosphorus Magnesium Total Bilirubin 0.4 AST 27 ALT 26 Alkaline Phosphatase 197 H Total Protein 7.8 Albumin 4.7 Globulin 3.1 Albumin/Globulin Ratio 1.5 Lipase Procalcitonin Serum , Qual Nasal Screen MRSA (PCR) Ketones 20.31 H SARS-CoV-2 (PCR) 03/23/21 03/23/21 03/23/21 00:39 00:39 00:39 WBC RBC Hgb Hct MCV MCH MCHC RDW Plt Count Neut % (Auto) Lymph % (Auto) [place] % (Auto) Eos % (Auto) Baso % (Auto) Neut # (Auto) Lymph # (Auto) [place] # (Auto) Eos # (Auto) Baso # (Auto) VBG pH VBG pCO2 VBG pO2 VBG HCO3 VBG Total CO2 VBG O2 Saturation VBG Base Excess Sodium Potassium Chloride Carbon Dioxide BUN Creatinine Estimated GFR BUN/Creatinine Ratio Glucose Lactate 1.2 Calcium Phosphorus 7.1 H Magnesium 2.6 H Total Bilirubin AST ALT Alkaline Phosphatase Total Protein Albumin Globulin Albumin/Globulin Ratio Lipase 178 Procalcitonin 0.10 Serum , Qual Negative Nasal Screen MRSA (PCR) Ketones SARS-CoV-2 (PCR) 03/23/21 03/23/21 03/23/21 00:42 03:10 03:48 WBC RBC Hgb Hct MCV MCH MCHC RDW Plt Count Neut % (Auto) Lymph % (Auto) [place] % (Auto) Eos % (Auto) Baso % (Auto) Neut # (Auto) Lymph # (Auto) [place] # (Auto) Eos # (Auto) Baso # (Auto) VBG pH VBG pCO2 VBG pO2 VBG HCO3 VBG Total CO2 VBG O2 Saturation VBG Base Excess Sodium 136 L Potassium 4.9 Chloride 103 Carbon Dioxide < 5 L* BUN 31 H Creatinine 0.90 Estimated GFR > 60.0 BUN/Creatinine Ratio 34.4 H Glucose 624 H* Lactate Calcium 8.9 Phosphorus Magnesium Total Bilirubin AST ALT Alkaline Phosphatase Total Protein Albumin Globulin Albumin/Globulin Ratio Lipase Procalcitonin Serum , Qual Nasal Screen MRSA (PCR) Negative for mrsa Ketones SARS-CoV-2 (PCR) Negative Assessment & Plan Assessment and plan (1) Noncompliance w/medication treatment due to intermit use of medication: Status: Acute Plan: -Needs an intervention if patient is amenable (2) Diabetic ketoacidosis associated with type 1 diabetes mellitus: Qualifiers: Diabetes mellitus complication detail: without coma Qualified Code(s): E10.10 - Type 1 diabetes mellitus with ketoacidosis without coma Status: Acute Plan: -Continue DKA protocol -pCXR was inconsistent with infection; follow up on UA
[2021-03-23] MEDS: HYDROMORPHONE 2 MG INJ (05:32)
[2021-03-23 07:18] LABS: Appearance Urine UA CLEAR; Bilirubin Urine UA NEGATIVE (NEGATIVE); Color Urine UA YELLOW; Glucose Urine UA 2+ g/dL (Negative); Ketones Urine UA 2+ (NEGATIVE); Leukocyte Esterase Urine UA NEGATIVE (NEGATIVE); Nitrite Urine UA NEGATIVE (Negative); Occult Blood Urine UA TRACE-LYSED (Negative); Protein Urine UA 1+ (Negative); Specific Gravity Urine UA 1.015 (1.000-1.035); Urobilinogen Urine UA 0.2 E.U./dL (0.2)
[2021-03-23 07:44] LABS: RBC Urine None Seen (0-5/HPF); Squamous Epithelial Cell Urine 0-1 /HPF (0-5/HPF); WBC Urine None Seen (0-5/HPF)
[2021-03-23 07:45] LABS: Amorphous Sediment Urine 1+; Bacteria Urine None Seen; Culture Indicated Urine Cult Not Indicated
[2021-03-23] MEDS: diphenhydrAMINE 50 MG/ML VIAL 25 MG IV ×3 (07:55→22:46)
[2021-03-23] MEDS: PANTOPRAZOLE 40 MG VIAL IV (08:19)
[2021-03-23] MEDS: ENOXAPARIN 40 MG/0.4 ML SYRINGE SUBCUT (08:19)
[2021-03-23 08:40] LABS: BUN Creatinine Ratio 34.7 (6-22); Blood Urea Nitrogen 35 mg/dL (7-17); Calcium 8.7 mg/dL (8.4-10.2); Chloride 105 mmol/L (98-107); Estimated Glomerular Filt Rate > 60.0 mL/min (>60); Glucose 475 mg/dL (70-100); Sodium 136 mmol/L (137-145)
[2021-03-23 08:49] LABS: Potassium 5.5 mmol/L (3.4-5.1)
[2021-03-23 08:50] LABS: HEMOLYSIS 60 (0-50)
[2021-03-23 08:51] LABS: Carbon Dioxide < 5 mmol/L (22-32)
[2021-03-23 09:25] LABS: HCO3 VBG 4 mmol/L (23-28); Oxygen Saturation VBG 98 % (70-75); PCO2 VBG 16.5 mmHg (45-50); PO2 VBG 146 mmHg (35-45); Total CO2 VBG < 5 mmol/L (24-29)
[2021-03-23] MEDS: LACTATED RINGERS 1,000 ML 999 ML IV ×3 (09:30→11:33)
--- NOTE | 2021-03-23 09:48 | PM.PN.EICU ---
Subjective Subjective :: This patient was seen via real time interactive two-way audiovisual telecommunication. no acute events since admission. reminas tachycardic bp stable mental status intact Current Medications Current Medications Medications: Home Medications glucose 4 gram chewable tablet 4 gram PO Q15M PRN #30 tab 12/12/18 [Rx Confirmed 03/23/21] glucagon (human recombinant) 1 mg solution for injection (Glucagon Emergency Kit) 1 mg SUBCUT DIRECTED 02/16/19 [History Confirmed 03/23/21] insulin degludec 200 unit/mL (3 mL) subcutaneous pen 53 unit SUBCUT 1100 11/21/19 [History Confirmed 03/23/21] insulin aspart U-100 100 unit/mL (3 mL) subcutaneous pen (Novolog Flexpen U-100 Insulin aspart) 10 unit SUBCUT AC 05/20/20 [History Confirmed 03/23/21] diphenhydramine HCl 50 mg capsule 50 mg PO BEDTIME PRN 09/29/20 [History Confirmed 03/23/21] Visit Medications (administered) Generic Name Dose Route Start Last Admin Trade Name Freq PRN Reason Stop Dose Admin Diphenhydramine HCl 25 mg 03/23/21 07:49 03/23/21 07:55 Diphenhydramine 50 Mg/Ml Vial IV 25 mg Q6HR PRN Administration Itching Enoxaparin Sodium 40 mg 03/23/21 09:00 03/23/21 08:19 Enoxaparin 40 Mg/0.4 Ml Syringe SUBCUT 40 mg DAILY BLAISE Administration Hydromorphone HCl 1 mg 03/23/21 05:20 03/23/21 09:39 Hydromorphone 1 Mg Inj IV 1 mg Q4H PRN Administration Pain, Moderate (4-6) Sodium Chloride 1,000 mls @ 150 mls/hr 03/23/21 00:45 03/23/21 03:21 Normal Saline 0.9% IV 150 mls/hr CONT BLAISE Infusion INSULIN DRIP PREMIX 100 unit in 100 mls @ 6 mls/hr 03/23/21 01:30 03/23/21 04:18 Myxredlin Drip Premix IV 6.5 mls/hr TITRATE BLAISE 6.5 mls/hr Titration Protocol Lactated Ringer's 1,000 mls @ 1,000 mls/hr 03/23/21 09:30 03/23/21 09:30 Lactated Ringers IV 05/22/21 10:29 999 mls/hr CONT BLAISE Administration Ondansetron HCl 4 mg 03/23/21 01:32 03/23/21 07:55 Ondansetron 4 Mg/2 Ml Inj IV 4 mg Q6HR PRN Administration Nausea And Vomiting Pantoprazole Sodium 40 mg 03/23/21 09:00 03/23/21 08:19 Pantoprazole 40 Mg Vial IV 40 mg DAILY BLAISE Administration Objective Labs Result Diagrams: 03/23/21 00:39 03/23/21 08:00 Labs: Laboratory Results - last 24 hr 03/23/21 03/23/21 03/23/21 00:38 00:39 00:39 WBC 10.1 RBC 4.36 Hgb 13.9 Hct 43.6 MCV 100.1 H MCH 31.8 MCHC 31.8 RDW 14.2 Plt Count 442 H Neut % (Auto) 70.6 Lymph % (Auto) 22.8 L [place] % (Auto) 5.1 Eos % (Auto) 0.1 L Baso % (Auto) 1.4 Neut # (Auto) 7100 H Lymph # (Auto) 2300 [place] # (Auto) 500 Eos # (Auto) 0 Baso # (Auto) 100 VBG pH 6.96 L* VBG pCO2 14.2 L VBG pO2 52 H VBG HCO3 3 L VBG Total CO2 < 5 L VBG O2 Saturation 66 L VBG Base Excess -29.0 L Sodium 135 L Potassium 5.4 H Chloride 97 L Carbon Dioxide < 5 L* BUN 28 H Creatinine 0.87 Estimated GFR > 60.0 BUN/Creatinine Ratio 32.2 H Glucose 719 H* Lactate Calcium 9.8 Phosphorus Magnesium Total Bilirubin 0.4 AST 27 ALT 26 Alkaline Phosphatase 197 H Total Protein 7.8 Albumin 4.7 Globulin 3.1 Albumin/Globulin Ratio 1.5 Lipase Procalcitonin Serum , Qual Urine Color Urine Appearance Urine pH Ur Specific [place] Urine Protein Urine Glucose (UA) Urine Ketones Urine Occult Blood Urine Nitrate Urine Bilirubin Urine Urobilinogen Ur Leukocyte Esterase Urine RBC Urine WBC Ur Squamous Epith Cells Amorphous Sediment Urine Bacteria Urine Yeast Ur Culture Indicated? Nasal Screen MRSA (PCR) Ketones 20.31 H SARS-CoV-2 (PCR) 03/23/21 03/23/21 03/23/21 00:39 00:39 00:39 WBC RBC Hgb Hct MCV MCH MCHC RDW Plt Count Neut % (Auto) Lymph % (Auto) [place] % (Auto) Eos % (Auto) Baso % (Auto) Neut # (Auto) Lymph # (Auto) [place] # (Auto) Eos # (Auto) Baso # (Auto) VBG pH VBG pCO2 VBG pO2 VBG HCO3 VBG Total CO2 VBG O2 Saturation VBG Base Excess Sodium Potassium Chloride Carbon Dioxide BUN Creatinine Estimated GFR BUN/Creatinine Ratio Glucose Lactate 1.2 Calcium Phosphorus 7.1 H Magnesium 2.6 H Total Bilirubin AST ALT Alkaline Phosphatase Total Protein Albumin Globulin Albumin/Globulin Ratio Lipase 178 Procalcitonin 0.10 Serum , Qual Negative Urine Color Urine Appearance Urine pH Ur Specific [place] Urine Protein Urine Glucose (UA) Urine Ketones Urine Occult Blood Urine Nitrate Urine Bilirubin Urine Urobilinogen Ur Leukocyte Esterase Urine RBC Urine WBC Ur Squamous Epith Cells Amorphous Sediment Urine Bacteria Urine Yeast Ur Culture Indicated? Nasal Screen MRSA (PCR) Ketones SARS-CoV-2 (PCR) 03/23/21 03/23/21 03/23/21 00:42 03:10 03:48 WBC RBC Hgb Hct MCV MCH MCHC RDW Plt Count Neut % (Auto) Lymph % (Auto) [place] % (Auto) Eos % (Auto) Baso % (Auto) Neut # (Auto) Lymph # (Auto) [place] # (Auto) Eos # (Auto) Baso # (Auto) VBG pH VBG pCO2 VBG pO2 VBG HCO3 VBG Total CO2 VBG O2 Saturation VBG Base Excess Sodium 136 L Potassium 4.9 Chloride 103 Carbon Dioxide < 5 L* BUN 31 H Creatinine 0.90 Estimated GFR > 60.0 BUN/Creatinine Ratio 34.4 H Glucose 624 H* Lactate Calcium 8.9 Phosphorus Magnesium Total Bilirubin AST ALT Alkaline Phosphatase Total Protein Albumin Globulin Albumin/Globulin Ratio Lipase Procalcitonin Serum , Qual Urine Color Urine Appearance Urine pH Ur Specific [place] Urine Protein Urine Glucose (UA) Urine Ketones Urine Occult Blood Urine Nitrate Urine Bilirubin Urine Urobilinogen Ur Leukocyte Esterase Urine RBC Urine WBC Ur Squamous Epith Cells Amorphous Sediment Urine Bacteria Urine Yeast Ur Culture Indicated? Nasal Screen MRSA (PCR) Negative for mrsa Ketones SARS-CoV-2 (PCR) Negative 03/23/21 03/23/2121 07:00 08:00 08:42 WBC RBC Hgb Hct MCV MCH MCHC RDW Plt Count Neut % (Auto) Lymph % (Auto) [place] % (Auto) Eos % (Auto) Baso % (Auto) Neut # (Auto) Lymph # (Auto) [place] # (Auto) Eos # (Auto) Baso # (Auto) VBG pH 7.00 L* VBG pCO2 16.5 L VBG pO2 146 H VBG HCO3 4 L VBG Total CO2 < 5 L VBG O2 Saturation 98 H VBG Base Excess -27.0 L Sodium 136 L Potassium 5.5 H Chloride 105 Carbon Dioxide < 5 L* BUN 35 H Creatinine 1.01 Estimated GFR > 60.0 BUN/Creatinine Ratio 34.7 H Glucose 475 H D Lactate Calcium 8.7 Phosphorus Magnesium Total Bilirubin AST ALT Alkaline Phosphatase Total Protein Albumin Globulin Albumin/Globulin Ratio Lipase Procalcitonin Serum , Qual Urine Color Yellow Urine Appearance Clear Urine pH 5.0 Ur Specific [place] 1.015 Urine Protein 1+ H Urine Glucose (UA) 2+ H Urine Ketones 2+ H Urine Occult Blood Trace-lysed Urine Nitrate Negative Urine Bilirubin Negative Urine Urobilinogen 0.2 Ur Leukocyte Esterase Negative Urine RBC None seen Urine WBC None seen Ur Squamous Epith Cells 0-1 /hpf Amorphous Sediment 1+ Urine Bacteria None seen Urine Yeast 0-1/hpf Ur Culture Indicated? Cult not indicated Nasal Screen MRSA (PCR) Ketones SARS-CoV-2 (PCR) Exam Vital Signs (past 8 hours): - 03/23/21 01:55 03/23/21 02:00 03/23/21 02:30 Temperature Pulse Rate 110 H 111 H 111 H Respiratory Rate 14 12 13 Blood Pressure 100/66 101/64 103/62 Pulse Oximetry 100 99 99 03/23/21 03:05 03/23/21 03:08 03/23/21 03:10 Temperature 96.7 F L Pulse Rate 119 H 124 H 120 H Respiratory Rate 16 19 Blood Pressure 109/63 109/63 Pulse Oximetry 03/23/21 08:25 Temperature 97.2 F L Pulse Rate 112 H Respiratory Rate 17 Blood Pressure 86/54 L Pulse Oximetry 99 Oxygen Delivery Method Room Air Assessment & Plan Assessment & Plan narrative: DKA Volume depletion/dehydration acute renal failure plan -bolus 3L LR now, continue maintenance at 150 after -repeat bmp/abg after rivf -continue with insulin drip -DKA protocol -if remains in acidosis less than 7.1 after adequate volume resuscitation can give some bicarb. -unlikely to have an atypical ingestion, unlikely to have a confounding infection -please call teleICU if conidtion changes Time Spent With Patient Critical Care time: I spent a total of [] minutes of critical care time on this patient's care today; this time is exclusive of procedural time.
[2021-03-23 11:21] LABS: Glucose 507 mg/dL (70-100)
--- NOTE | 2021-03-23 11:48 | DIET.PN1 ---
Dietary Progress Note RD Note: Pt has attended two outpatient diabetes education appointments at [facility] over the past 2 months. CDE Poornima got PCP to send dexcom CGM rx to pts pharmacy, however, pharmacy does not fill this DME. Pt had not switched to pharmacy that could fill prior to this admission for DKA. ICU nurse added [facility] to pt list and Hospitalist Lyla will send rx over which can be picked up Sat or Mon at latest. Pt desires CGM, CDE unable to make medication reccs as pt not bringing BG logs to visits and reports lows. This technology will be able to be accessed by care team in real time for better understanding of pt diet/med compliance and reccs for better management. Ht: 154.94 cm Wt: 43.5 kg BMI: 18.1 Last BM: 03/22/21 (03/23/21 01:45) MNA: Carmelo Score: 15 Diet: 03/23/21 00:32 NPO Diet Diet Modifications: NPO Type: NPO except for Meds Labs: RBC 4.36 X10^6/uL (4.0-5.2) 03/23/21 00:39 Hgb 13.9 g/dL (12.0-16.0) 03/23/21 00:39 Hct 43.6 % (36-46) 03/23/21 00:39 Creatinine 1.01 mg/dL (0.52-1.04) 03/23/21 08:00 Lactate 1.2 mmol/L (0.7-2.1) 03/23/21 00:39 Monitoring/Evaluations: [employer] Paster to see pt prior to d/c Saturday and will phone pts mom to help arrange successful procurement of CGM. OP visit scheduled next week for install and education of device. Electronically Signed by: Ellen Kumari 03/23/21 11:48 Clinical Dietitian [place] [id number] [place] [address]
[2021-03-23] MEDS: LACTATED RINGERS 1,000 ML 1000 ML IV (12:05)
[2021-03-23 12:09] LABS: HCO3 ABG 4 mmol/L (22-26); Oxygen Saturation ABG 98 % (95-100); PCO2 ABG 13.3 mmHg (35-45); PO2 ABG 141 mmHg (80-100); TCO2 ABG < 5 mmol/L (21-31)
[2021-03-23 12:11] LABS: Fractionated Inspired Oxygen 21
[2021-03-23 13:21] LABS: BUN Creatinine Ratio 34.5 (6-22); Blood Urea Nitrogen 29 mg/dL (7-17); Calcium 8.6 mg/dL (8.4-10.2); Chloride 110 mmol/L (98-107); Estimated Glomerular Filt Rate > 60.0 mL/min (>60); Glucose 296 mg/dL (70-100); HEMOLYSIS < 15 (0-50); Potassium 4.1 mmol/L (3.4-5.1); Sodium 138 mmol/L (137-145)
[2021-03-23 13:50] LABS: Carbon Dioxide 5 mmol/L (22-32)
[2021-03-23] MEDS: DEXTROSE 5%-0.45% NS 1,000 ML 150 ML IV ×2 (16:15→22:48)
[2021-03-23 17:21] LABS: BUN Creatinine Ratio 35.9 (6-22); Blood Urea Nitrogen 28 mg/dL (7-17); Calcium 8.8 mg/dL (8.4-10.2); Carbon Dioxide 15 mmol/L (22-32); Chloride 111 mmol/L (98-107); Estimated Glomerular Filt Rate > 60.0 mL/min (>60); Glucose 141 mg/dL (70-100); HEMOLYSIS < 15 (0-50); Potassium 3.6 mmol/L (3.4-5.1); Sodium 140 mmol/L (137-145)
[2021-03-23 17:37] LABS: HCO3 VBG 14 mmol/L (23-28); Oxygen Saturation VBG 91 % (70-75); PCO2 VBG 35.9 mmHg (45-50); PO2 VBG 72 mmHg (35-45); Total CO2 VBG 16 mmol/L (24-29); pH VBG 7.21 (7.33-7.43)
[2021-03-23] MEDS: POTASSIUM CHLORIDE IN WATER 10 MEQ/100 ML PIGGYBACK 100 MEQ IV ×4 (18:29→22:20)
[2021-03-23] MEDS: INSULIN DRIP PREMIX 100 UNIT/100 ML PLAST..BAG IV (18:33)
--- NOTE | 2021-03-23 20:16 | PM.ICURNDS ---
- Note: Case was d/w bedside nurse. Events noted chart reviewed. Pt w DKA, likely due to med non-complaince. Frequent admissions for this. Currently on insulin drip at 1, BG 140s, on D5. AG on last BMP 14, will check next BMP @2200, if AG 12 or less will transition to lantus and SSI at that time.
[2021-03-23 22:04] LABS: Blood Urea Nitrogen 24 mg/dL (7-17); Calcium 8.3 mg/dL (8.4-10.2); Carbon Dioxide 19 mmol/L (22-32); Chloride 113 mmol/L (98-107); Estimated Glomerular Filt Rate > 60.0 mL/min (>60); Glucose 164 mg/dL (70-100); HEMOLYSIS < 15 (0-50); Potassium 4.4 mmol/L (3.4-5.1); Sodium 139 mmol/L (137-145)
--- NOTE | 2021-03-23 23:16 | PC.NURSE ---
Addendum entered by Lisette Zarco R.N. 03/24/21 06:25: Patient was able to drink water and eat 1/2 turkey sandwich without nausea/vomit, her own Tresiba pen 53 units given at 0615, insulin gtt currently at 2units/hr, will be stopped in 1 hour. Original Note: 2230-Gap has closed = 7 now per last BMP at 2200. Insulin gtt at 2units/hr, D51/2NS at 150ml/hr, 40meq K+ riders finishing. Plan to start transition to patients long acting Tresiba as discussed with Kael COLES. Patient has been drowsy since start of shift. Woke her up to discuss plan, she started crying, c/o pain all over, medicated per eMAR, encouraged her to start drinking and eating, currently denies hunger, nausea, or urger to void.
[2021-03-24 04:00] VITALS: BP 110/73; PULSE 109; RESP 14; TEMP 36.9; O2SAT 98
[2021-03-24] MEDS: DEXTROSE 5%-0.45% NS 1,000 ML 150 ML IV (05:19)
[2021-03-24 05:35] LABS: Add Manual Diff / Slide Review NO; Basophils Absolute Auto 0 /uL (0-100); Basophils Percent Auto 0.4 % (0-2); Eosinophils Absolute Auto 0 /uL (0-450); Eosinophils Percent Auto 0.1 % (2-4); Hematocrit 38.8 % (36-46); Hemoglobin 13.2 g/dL (12.0-16.0); Lymphocytes Absolute Auto 700 /uL (1100-4500); Lymphocytes Percent Auto 13.3 % (25-40); Mean Corpuscular HGB Conc 33.9 % (30-36); Mean Corpuscular Hemoglobin 30.9 PG (26-34); Monocytes Absolute Auto 500 /uL (0-900); Monocytes Percent Auto 9.5 % (3-14); Neutrophils Absolute Auto 4200 /uL (1500-7000); Neutrophils Percent Auto 76.7 % (50-75); Platelet Count 208 X10^3/uL (150-400); Red Blood Cell Count 4.27 X10^6/uL (4.0-5.2); White Blood Cell Count 5.4 X10^3/uL (4.5-11.0)
[2021-03-24 05:42] LABS: Blood Urea Nitrogen 21 mg/dL (7-17); Calcium 8.3 mg/dL (8.4-10.2); Carbon Dioxide 23 mmol/L (22-32); Chloride 112 mmol/L (98-107); Estimated Glomerular Filt Rate > 60.0 mL/min (>60); Glucose 138 mg/dL (70-100); HEMOLYSIS < 15 (0-50); Potassium 3.7 mmol/L (3.4-5.1); Sodium 138 mmol/L (137-145)
[2021-03-24 06:11] LABS: Magnesium 1.7 mg/dL (1.6-2.3); Phosphorous 2.5 mg/dL (2.5-4.5)
[2021-03-24] MEDS: INSULIN GLARGINE 100 UNIT/ML 3ML PEN 53 UNIT SUBCUT (06:13)
[2021-03-24] MEDS: PANTOPRAZOLE 40 MG VIAL IV (07:52)
[2021-03-24] MEDS: KETOROLAC 30 MG/ML VIAL IV (07:52)
[2021-03-24 08:00] VITALS: BP 113/74; PULSE 101; RESP 12; TEMP 36.4; O2SAT 97
--- NOTE | 2021-03-24 08:32 | P.DS_ITS ---
History of Present Illness History of Present Illness Date Patient Seen: 03/24/21 Chief complaint: diabetic keto acidosis x3 hours Narrative: Romi Jimenes is a 31-year-old type 1 diabetic female well known to staff with a history of multiple admissions for diabetic ketoacidosis, was in her usual state of health when she started to have significant nausea and vomitingShe is unable to provide a history as she appears to be quite confused.? Per the ED provider, she was doing well even having had recent ankle surgery, but became very sick today andThe patient was recently admitted on February 18 and discharged next day for the same thing and has had multiple admissions over the past 2 years for diabetic ketoacidosis.? Patient is unable to provide me with the review of systems. In the emergency department they started her on an insulin drip without a bolus.? At that time she was reported to have Kussmaul pattern breathing. She is afebrile, blood pressure 148/90, heart rate 123, respiratory rate of 24 oxygen saturation of 100% on room air, she weighs 44 kilograms with a BMI of 16.? CBC is unremarkable,platelet count is 442, VBG pH was 6.96, VBG pCO2 was 14.2, VBG PO2 was 52, VBG bicarb was 3, VBG total CO2 was less than 5, VBG O2 saturation was 66% and anion gap is 37.? Sodium was 135, potassium 5.4, chloride 98, bicarb less than 5, BUN 28, creatinine .87 which is greater than her baseline with a EGFR of greater than 30, glucose 719, lactate 1.2, phosphorus 7.1, mag 2.6, alk- phos 197, ketones 20.3, and COVID-19 PCR was negative. Discharge Providers Provider Date of admission: 03/23/21 01:29 Discharge Date: 03/24/21 Primary care physician: Maria Ines Limon DO Consults: 03/23/21 01:32 Consult to Tele-director internal control Routine Comment: Consulting Provider: Jerome [employer] Reason for consultation: [employer] Has provider been notified: Yes Discharge provider: Gale Arita MD Summary Hospital Course Discharge Diagnosis: 1. Diabetic ketoacidosis 2. Type 1 diabetes 3. History of migraine headache 4. History of pyelonephritis Hospital Course: Patient was admitted to the hospital for diabetic ketoacidosis. She was markedly acidotic with a pH of 6.99. Patient received several L of lactated Ringer's and normal saline with improvement of her volume status, acidosis, and blood sugar. She was transition from IV insulin to her Tresiba. The patient had an overlap of 1 hour. She was able to advance her diet. Blood sugars were improved as were electrolytes and she was deemed appropriate for discharge home. Patient does have some diffuse body aches which seem to be improved. Status at Discharge Cognitive/behavioral status at discharge: oriented Functional status at discharge: independent ambulation Overall status at discharge: patient is progressing back to baseline Exam Vital Signs (past 8 hours): - 03/24/21 04:00 03/24/21 08:00 Temperature 98.4 F 97.6 F Pulse Rate 109 H 101 H Respiratory Rate 14 12 Blood Pressure 110/73 113/74 Pulse Oximetry 98 97 Oxygen Delivery Method Room Air Oxygen Flow Rate 0 Narrative Exam Narrative: Pleasant female lying in bed Resp Other: Lungs occasional crackles Cardio Other: Cardiac exam: Regular rate and rhythm normal S1-S2 GI Other: Abdomen: Soft and nontender Extrem Other: Extremities: no Edema Objective Labs Result Diagrams: 03/24/21 04:56 03/24/21 04:56 Labs: Laboratory Results - last 24 hr 03/23/21 03/23/21 03/23/21 08:00 08:42 10:15 WBC RBC Hgb Hct MCV MCH MCHC RDW Plt Count Neut % (Auto) Lymph % (Auto) Mcdowell % (Auto) Eos % (Auto) Baso % (Auto) Neut # (Auto) Lymph # (Auto) Mcdowell # (Auto) Eos # (Auto) Baso # (Auto) ABG pH ABG pCO2 ABG pO2 ABG HCO3 ABG Total CO2 ABG O2 Saturation ABG Base Excess VBG pH 7.00 L* VBG pCO2 16.5 L VBG pO2 146 H VBG HCO3 4 L VBG Total CO2 < 5 L VBG O2 Saturation 98 H VBG Base Excess -27.0 L FiO2 Sodium 136 L Potassium 5.5 H Chloride 105 Carbon Dioxide < 5 L* BUN 35 H Creatinine 1.01 Estimated GFR > 60.0 BUN/Creatinine Ratio 34.7 H Glucose 475 H D 507 H* Calcium 8.7 Phosphorus Magnesium 03/23/21 03/23/21 03/23/21 11:52 12:57 17:02 WBC RBC Hgb Hct MCV MCH MCHC RDW Plt Count Neut % (Auto) Lymph % (Auto) Mcdowell % (Auto) Eos % (Auto) Baso % (Auto) Neut # (Auto) Lymph # (Auto) Mcdowell # (Auto) Eos # (Auto) Baso # (Auto) ABG pH 7.10 L* ABG pCO2 13.3 L* ABG pO2 141 H ABG HCO3 4 L ABG Total CO2 < 5 L ABG O2 Saturation 98 ABG Base Excess -26.0 L VBG pH VBG pCO2 VBG pO2 VBG HCO3 VBG Total CO2 VBG O2 Saturation VBG Base Excess FiO2 21 Sodium 138 140 Potassium 4.1 D 3.6 Chloride 110 H 111 H Carbon Dioxide 5 L* 15 L BUN 29 H 28 H Creatinine 0.84 0.78 Estimated GFR > 60.0 > 60.0 BUN/Creatinine Ratio 34.5 H 35.9 H Glucose 296 H D 141 H D Calcium 8.6 8.8 Phosphorus Magnesium 03/23/21 03/23/21 03/24/21 17:20 21:44 04:56 WBC 5.4 RBC 4.27 Hgb 13.2 Hct 38.8 MCV 91.0 D MCH 30.9 MCHC 33.9 RDW 14.0 Plt Count 208 Neut % (Auto) 76.7 H Lymph % (Auto) 13.3 L Mcdowell % (Auto) 9.5 Eos % (Auto) 0.1 L Baso % (Auto) 0.4 Neut # (Auto) 4200 Lymph # (Auto) 700 L Mcdowell # (Auto) 500 Eos # (Auto) 0 Baso # (Auto) 0 ABG pH ABG pCO2 ABG pO2 ABG HCO3 ABG Total CO2 ABG O2 Saturation ABG Base Excess VBG pH 7.21 L VBG pCO2 35.9 L VBG pO2 72 H VBG HCO3 14 L VBG Total CO2 16 L VBG O2 Saturation 91 H VBG Base Excess -13.0 L FiO2 Sodium 139 Potassium 4.4 Chloride 113 H Carbon Dioxide 19 L BUN 24 H Creatinine 0.60 Estimated GFR > 60.0 BUN/Creatinine Ratio 40.0 H Glucose 164 H Calcium 8.3 L Phosphorus Magnesium 03/24/21 03/24/21 03/24/21 04:56 04:56 04:56 WBC RBC Hgb Hct MCV MCH MCHC RDW Plt Count Neut % (Auto) Lymph % (Auto) Mcdowell % (Auto) Eos % (Auto) Baso % (Auto) Neut # (Auto) Lymph # (Auto) Mcdowell # (Auto) Eos # (Auto) Baso # (Auto) ABG pH ABG pCO2 ABG pO2 ABG HCO3 ABG Total CO2 ABG O2 Saturation ABG Base Excess VBG pH VBG pCO2 VBG pO2 VBG HCO3 VBG Total CO2 VBG O2 Saturation VBG Base Excess FiO2 Sodium 138 Potassium 3.7 Chloride 112 H Carbon Dioxide 23 BUN 21 H Creatinine 0.50 L Estimated GFR > 60.0 BUN/Creatinine Ratio 42.0 H Glucose 138 H Calcium 8.3 L Phosphorus 2.5 D Magnesium 1.7 PFSH Medical History DKA (diabetic ketoacidoses) History of pyelonephritis Irregular menstrual cycle Migraine headache Nephrolithiasis Noncompliance w/medication treatment due to intermit use of medication Type 1 diabetes mellitus Surgical History History of ureter stent Hx of cataract surgery Hx of local excision of skin lesion Status post laser lithotripsy of ureteral calculus [place] teeth extracted Family History Father In good health Mother Cardiac disease Social History details: Engaged household members: significant other and family Smoking Status: Never smoker alcohol intake: never Discharge Assessment & Plan Assessment and Plan Assessment: 1. DKA 2. Type 1 diabetes with poor compliance Plan of Treatment: Discharge home Will arrange for continues glucose monitor Discharge Plan Discharge Plan Patient Disposition: Home Discharge orders & Medications Prescriptions: Continued glucose 4 gram tablet,chewable 4 gram PO Q15M PRN (Reason: hypoglycemia) Qty: 30 0RF Rx Instructions: until response Glucagon Emergency Kit (human) 1 mg recon soln 1 mg subcut DIRECTED 0RF insulin degludec 200 unit/mL (3 mL) Insulin Pen 53 unit SUBCUT 1100 0RF insulin aspart U-100 [Novolog Flexpen U-100 Insulin] 100 unit/mL (3 mL) insulin pen 10 unit SUBCUT AC 0RF Rx Instructions: Pt states she uses 10 units plus a sliding scale based on her blood sugar. She is vague in response to exact # over 10 units. diphenhydramine HCl 50 mg Capsule 50 mg PO BEDTIME PRN (Reason: Sleep) 0RF Rx Instructions: for itching and sleep Follow up/Referrals: Maria Ines Limon DO [Primary Care Provider] - Discharge Health Status Multidrug resistant organism: No MDRO Diet/Activity/Treatments Diet: Carb-consistent/Diabetic Discharge Data Primary Care Provider: Maria Ines Limon
--- NOTE | 2021-03-24 09:43 | PC.NURSE ---
Pt and mom present for dc teaching. Reviewed dx, medications, symptoms worsening, when to seek emergency medical tx. Pt and mom state they have been seeing photograph inspector and are working toward obtaining new PCP to manage insulin pump as well as a device to measure BGs. Removed PIV x2 and tele monitoring. Pt dressed herself. All belongings gathered and given to pt/mom. Pt was escorted to POV via w/c by RN in no distress.
--- NOTE | 2021-03-24 10:44 | DIET.PN1 ---
Dietary Progress Note Spoke with Sarabjit over the phone, since she has already been discharged. Called to coordinate changing Dexcom rx location. Currently rx is still at [facility] in [place]. She had planned to move this rx to [facility] in [place] d/t [facility]'s inability to fill Dexcom rx, but has not done so. RD/KYLEIGH called [facility] to request CGM rx transfer. Coordinated with Sarabjit about this change and need to filler picker before our appt next week. Sounds like there may be some road blocks in getting this rx filled. Will call her provider to see if an rx can be sent directly to [facility]. Monitoring/Evaluations: f/u in OP next Electronically Signed by: Iliana Noguera 03/24/21 10:44 Clinical Dietitian [address] [id number]
== END 2021-03-24 09:28 | disposition home or self-care (01) | DRG 420 ==
LOC: ED 00:50 → ICU 09:13
PROVIDERS: Internal Medicine; Admitting Provider Nurse Practitioner Family; Emergency Provider Emergency Medicine; PCP Student in an Organized Health Care Education/Training Program; Referring Provider Emergency Medicine; Visit Provider Nurse Practitioner Family
DX: E10.10 Type 1 diabetes mellitus with ketoacidosis without coma (principal); T38.3X6A Underdosing of insulin and oral hypoglycemic [antidiabetic] drugs, initial encounter; Z79.4 Long term (current) use of insulin; Z91.128 Patient's intentional underdosing of medication regimen for other reason; Z20.822 Contact with and (suspected) exposure to COVID-19
CPT/HCPCS: 36415; 36600; 71045; 80048; 80053; 81001; 82009; 82805; 82947; 82962; 83605; 83690; 83735; 84100; 84145; 84703; 85025; 87040; 87635; 87797; 96361; 96365; 96366; 96375; 99284; 99291; C9803; G0378; C9113; J1170; J1200; J1650; J1885; J2405

== ENCOUNTER 2021-03-25 00:40 | Inpatient (IN) | payer MEDICAID, OTHER, SELFPAY ==
[2021-03-23 01:45] VITALS: BMI 18.1
[2021-03-25] VITALS (15 sets, daily range): BP systolic 95–130; BP diastolic 52–82; PULSE 93–123; RESP 9–26; TEMP 36.1–37.1; O2SAT 92–100; BMI 21.2
[2021-03-25] MEDS: ONDANSETRON 4 MG/2 ML INJ IV ×2 (01:32→02:48)
[2021-03-25] MEDS: LACTATED RINGERS 1,000 ML 1000 ML IV ×4 (01:33→17:26)
[2021-03-25 01:36] LABS: Basophils Absolute Auto 100 /uL (0-100); Basophils Percent Auto 0.9 % (0-2); Eosinophils Absolute Auto 0 /uL (0-450); Eosinophils Percent Auto 0.1 % (2-4); Hematocrit 43.6 % (36-46); Hemoglobin 12.9 g/dL (12.0-16.0); Lymphocytes Absolute Auto 1100 /uL (1100-4500); Lymphocytes Percent Auto 8.9 % (25-40); Mean Corpuscular HGB Conc 29.7 % (30-36); Monocytes Absolute Auto 800 /uL (0-900); Monocytes Percent Auto 6.5 % (3-14); Neutrophils Absolute Auto 10700 /uL (1500-7000); Neutrophils Percent Auto 83.6 % (50-75); Platelet Count 352 X10^3/uL (150-400); Red Blood Cell Count 4.18 X10^6/uL (4.0-5.2); White Blood Cell Count 12.8 X10^3/uL (4.5-11.0)
[2021-03-25 01:42] LABS: HEMOLYSIS 23 (0-50)
[2021-03-25 01:48] LABS: Albumin 4.2 g/dL (3.5-5.0); Albumin Globulin Ratio 1.5 (1.0-2.8); BUN Creatinine Ratio 25.6 (6-22); Bilirubin Total 0.4 mg/dL (0.2-1.3); Blood Urea Nitrogen 20 mg/dL (7-17); Calcium 9.5 mg/dL (8.4-10.2); Chloride 106 mmol/L (98-107); Estimated Glomerular Filt Rate > 60.0 mL/min (>60); Globulin 2.8 g/dL (1.7-4.1); Potassium 4.7 mmol/L (3.4-5.1); Sodium 140 mmol/L (137-145)
--- NOTE | 2021-03-25 01:48 | ED_ITS ---
HPI - General Adult General Chief complaint: Diabetic Problem Stated complaint: SOB, just relieased earlier today, same symptoms Time Seen by Provider: 03/25/21 00:45 Source: patient Mode of arrival: Wheelchair Related Data Home Medications Medication Instructions Recorded Confirmed glucagon (human recombinant) 1 mg 1 mg SUBCUT DIRECTED 02/16/19 03/23/21 solution for injection (Glucagon Emergency Kit) insulin degludec 200 unit/mL (3 53 unit SUBCUT 1100 11/21/19 03/23/21 mL) subcutaneous pen insulin aspart U-100 100 unit/mL 10 unit SUBCUT AC 05/20/20 03/23/21 (3 mL) subcutaneous pen (Novolog Flexpen U-100 Insulin aspart) diphenhydramine HCl 50 mg capsule 50 mg PO BEDTIME PRN 09/29/20 03/23/21 Previous Rx's Medication Instructions Recorded glucose 4 gram chewable tablet 4 gram PO Q15M PRN #30 tab 12/12/18 Allergies Allergy/AdvReac Type Severity Reaction Status Date / Time abdalla [ABDALLA] Allergy Intermediate Hives, Verified 02/18/21 18:05 pruritus iodine [IODINE] Allergy Intermediate rash, itchy Verified 02/18/21 18:05 morphine Allergy Intermediate Difficulty Verified 02/18/21 18:05 Breathing shellfish derived Allergy Intermediate rash Verified 02/18/21 18:05 [SHELLFISH DERIVED] adhesive [ADHESIVE] Allergy Unknown tape Verified 02/18/21 18:05 latex [LATEX] Allergy Unknown Hives Verified 02/18/21 18:05 Patient History Medical History DKA (diabetic ketoacidoses) History of pyelonephritis Irregular menstrual cycle Migraine headache Nephrolithiasis Noncompliance w/medication treatment due to intermit use of medication Type 1 diabetes mellitus Surgical History History of ureter stent Hx of cataract surgery Hx of local excision of skin lesion Status post laser lithotripsy of ureteral calculus [place] teeth extracted Family History Father In good health Mother Cardiac disease Social History details: Engaged household members: significant other and family Smoking Status: Never smoker alcohol intake: never Smoking Status: Never smoker alcohol intake frequency: holidays/special occasions only Substance Use Type: does not use Exam Initial Vital Signs Initial Vital Signs: Vital Signs Temperature 97 F L 03/25/21 00:55 Pulse Rate 122 H 03/25/21 00:55 Respiratory Rate 26 H 03/25/21 00:55 Blood Pressure 119/78 03/25/21 00:55 Pulse Oximetry 98 03/25/21 00:55 Course Orders Ordered: ED Orders 03/25/21 01:15 Complete Blood Count AUTO DIFF Stat Comprehensive Metabolic Panel Stat Ketones (Beta-Hydroxybutyrate) Stat Procalcitonin Stat 03/25/21 01:20 Blood Culture Stat Lactate (Lactic Acid) Stat Venous Blood Gas Stat Discontinued Medications Lactated Ringer's (Lactated Ringers) 1,000 mls @ 1,000 mls/hr IV BOLUS ONE Stop: 03/25/21 02:19 Last Admin: 03/25/21 01:33 Dose: 1,000 mls/hr Documented by: NARCISO Ondansetron HCl (Ondansetron 4 Mg/2 Ml Inj) 4 mg IV NOW ONE Stop: 03/25/21 01:21 Last Admin: 03/25/21 01:32 Dose: 4 mg Documented by: NARCISO Vital Signs Vital signs: Vital Signs - 8 hr 03/25/21 00:55 Temperature 97 F L Pulse Rate 122 H Respiratory Rate 26 H Blood Pressure 119/78 Pulse Oximetry 98 Medical Decision Making Lab Data Result diagrams: 03/25/21 01:15 03/25/21 01:15 Labs: Lab Results 03/25/21 03/25/21 Range/Units 01:15 01:15 WBC 12.8 H D (4.5-11.0) X10^3/uL RBC 4.18 (4.0-5.2) X10^6/uL Hgb 12.9 (12.0-16.0) g/dL Hct 43.6 (36-46) % MCV 104.3 H D (80-100) fL MCH 31.0 (26-34) PG MCHC 29.7 L D (30-36) % RDW 15.0 H (11.6-14.8) % Plt Count 352 (150-400) X10^3/uL Neut % (Auto) 83.6 H (50-75) % Lymph % (Auto) 8.9 L (25-40) % Cavalier % (Auto) 6.5 (3-14) % Eos % (Auto) 0.1 L (2-4) % Baso % (Auto) 0.9 (0-2) % Neut # (Auto) 26849 H (8137-6784) /uL Lymph # (Auto) 1100 (1044-5237) /uL [place]ier # (Auto) 800 (0-900) /uL Eos # (Auto) 0 (0-450) /uL Baso # (Auto) 100 (0-100) /uL Sodium 140 (137-145) mmol/L Potassium 4.7 (3.4-5.1) mmol/L Chloride 106 (98-107) mmol/L Carbon Dioxide < 5 L* (22-32) mmol/L BUN 20 H (7-17) mg/dL Creatinine 0.78 (0.52-1.04) mg/dL Estimated GFR > 60.0 (>60) mL/min BUN/Creatinine Ratio 25.6 H (6-22) Glucose Not Reportable Calcium 9.5 (8.4-10.2) mg/dL Total Bilirubin 0.4 (0.2-1.3) mg/dL AST Not Reportable ALT Not Reportable Alkaline Phosphatase Not Reportable Total Protein 7.0 (6.3-8.2) g/dL Albumin 4.2 (3.5-5.0) g/dL Globulin 2.8 (1.7-4.1) g/dL Albumin/Globulin Ratio 1.5 (1.0-2.8) Procalcitonin Not Reportable Ketones Not Reportable Point of Care Testing Glucose POC 500 Point of care testing: Point of Care Testing Glucose POC 500 Discharge Plan Departure Prescriptions: No Action glucose 4 gram tablet,chewable 4 gram PO Q15M PRN (Reason: hypoglycemia) Qty: 30 0RF Rx Instructions: until response Glucagon Emergency Kit (human) 1 mg recon soln 1 mg subcut DIRECTED 0RF insulin degludec 200 unit/mL (3 mL) Insulin Pen 53 unit SUBCUT 1100 0RF insulin aspart U-100 [Novolog Flexpen U-100 Insulin] 100 unit/mL (3 mL) insulin pen 10 unit SUBCUT AC 0RF Rx Instructions: Pt states she uses 10 units plus a sliding scale based on her blood sugar. She is vague in response to exact # over 10 units. diphenhydramine HCl 50 mg Capsule 50 mg PO BEDTIME PRN (Reason: Sleep) 0RF Rx Instructions: for itching and sleep Referrals: Maria Ines Limon DO [Primary Care Provider] -
[2021-03-25 02:01] LABS: Carbon Dioxide < 5 mmol/L (22-32)
[2021-03-25 02:06] LABS: Add Manual Diff / Slide Review SLIDE REVIEW; Mean Corpuscular Volume 104.3 fL (80-100)
--- NOTE | 2021-03-25 02:40 | ED_ITS ---
HPI - General Adult General Chief complaint: Diabetic Problem Stated complaint: SOB, just relieased earlier today, same symptoms Time Seen by Provider: 03/25/21 00:45 Source: patient Mode of arrival: Wheelchair History of Present Illness HPI narrative: 31F nonsmoker with history of diabetes returns with typical symptoms including abdominal pain, rapid shallow breathing and elevated blood sugars. She is here often for DKA, frequently due to medical noncompliance. She was just discharged yesterday after a brief visit. She complains of generalized pain, worsened her abdomen without vomiting. She has had no fever chills. She denies runny nose, sore throat or cough. She states she continues to take her medications as directed. Related Data Home Medications Medication Instructions Recorded Confirmed glucagon (human recombinant) 1 mg 1 mg SUBCUT DIRECTED 02/16/19 03/23/21 solution for injection (Glucagon Emergency Kit) insulin degludec 200 unit/mL (3 53 unit SUBCUT 1100 11/21/19 03/23/21 mL) subcutaneous pen insulin aspart U-100 100 unit/mL 10 unit SUBCUT AC 05/20/20 03/23/21 (3 mL) subcutaneous pen (Novolog Flexpen U-100 Insulin aspart) diphenhydramine HCl 50 mg capsule 50 mg PO BEDTIME PRN 09/29/20 03/23/21 Previous Rx's Medication Instructions Recorded glucose 4 gram chewable tablet 4 gram PO Q15M PRN #30 tab 12/12/18 Allergies Allergy/AdvReac Type Severity Reaction Status Date / Time arredondo [ARREDONDO] Allergy Intermediate Hives, Verified 02/18/21 18:05 pruritus iodine [IODINE] Allergy Intermediate rash, itchy Verified 02/18/21 18:05 morphine Allergy Intermediate Difficulty Verified 02/18/21 18:05 Breathing shellfish derived Allergy Intermediate rash Verified 02/18/21 18:05 [SHELLFISH DERIVED] adhesive [ADHESIVE] Allergy Unknown tape Verified 02/18/21 18:05 latex [LATEX] Allergy Unknown Hives Verified 02/18/21 18:05 Review of Systems Review of Systems Narrative: GENERAL: Denies chills, fatigue, malaise, fever, sweats. HEENT: Denies sinus pain, ear pain, sore throat, difficulty swallowing, dizziness. RESPIRATORY: Denies dyspnea, cough, wheezing, hemoptysis, sputum. CARDIOVASCULAR: Denies chest pain, palpitations, orthopnea, edema, GASTROINTESTINAL: See HPI : Denies dysuria, frequency, incontinence, hematuria, urinary retention. MUSCULOSKELETAL: denies weakness, joint pain, or bony pain SKIN: Denies rash, skin lesions, or other NEUROLOGIC: Denies weakness, headache, numbness, change in speech, confusion, seizures, incoordination. PSYCHIATRIC: No concerning psychosocial issues. 12 point review of systems is negative except for those stated above Patient History Medical History DKA (diabetic ketoacidoses) History of pyelonephritis Irregular menstrual cycle Migraine headache Nephrolithiasis Noncompliance w/medication treatment due to intermit use of medication Type 1 diabetes mellitus Surgical History History of ureter stent Hx of cataract surgery Hx of local excision of skin lesion Status post laser lithotripsy of ureteral calculus [place] teeth extracted Family History Father In good health Mother Cardiac disease Social History details: Engaged household members: significant other and family Smoking Status: Never smoker alcohol intake: never Smoking Status: Never smoker alcohol intake frequency: holidays/special occasions only Substance Use Type: does not use Exam Narrative Exam Narrative: GENERAL: [31 year old patient appears stated age. Ill-appearing, obviously uncomfortable rapid shallow breathing. Very thin and malnourished HEAD: Atraumatic. Normocephalic. EYES: Pupils equal round and reactive. Extraocular motions intact. No scleral icterus. No injection or drainage. ENT: Dry mucous membranes Nose without bleeding, purulent drainage. Throat without erythema, tonsillar hypertrophy or exudate. Airway patent. NECK: Trachea midline. Non tender CARDIOVASCULAR: Regular rate and rhythm without murmurs, gallops, or rubs. RESPIRATORY: Clear to auscultation. Breath sounds equal bilaterally. No wheezes, rales, or rhonchi. GASTROINTESTINAL: Abdomen soft, generalized tenderness, nondistended. EXTREMITIES: No edema or joint tenderness. BACK: Nontender without deformity or crepitance. No flank tenderness. NEURO: AOx3. SKIN: No rash or erythema of visible areas Initial Vital Signs Initial Vital Signs: Vital Signs Temperature 97 F L 03/25/21 00:55 Pulse Rate 122 H 03/25/21 00:55 Respiratory Rate 26 H 03/25/21 00:55 Blood Pressure 119/78 03/25/21 00:55 Pulse Oximetry 98 03/25/21 00:55 Course Orders Ordered: ED Orders 03/25/21 01:15 Complete Blood Count AUTO DIFF Stat Comprehensive Metabolic Panel Stat 03/25/21 01:20 Blood Culture Stat 03/25/21 02:35 Glucose Stat Lactate (Lactic Acid) Stat 03/25/21 02:41 Venous Blood Gas Stat Diphenhydramine HCl (Diphenhydramine 50 Mg/Ml Vial) 25 mg IV Q6HR PRN PRN Reason: Itching Enoxaparin Sodium (Enoxaparin 40 Mg/0.4 Ml Syringe) 40 mg SUBCUT DAILY BLAISE Hydromorphone HCl (Hydromorphone 1 Mg Inj) 1 mg IV Q3H PRN PRN Reason: Pain, Moderate (4-6) Hydroxyzine HCl (Hydroxyzine 50 Mg/Ml Inj) 25 mg IM Q6H PRN PRN Reason: Itching INSULIN DRIP PREMIX (Myxredlin Drip Premix) 100 unit in 100 mls @ 6 mls/hr IV TITRATE BLAISE; Protocol Last Admin: 03/25/21 02:53 Dose: 6 ml/hr, 6 mls/hr Documented by: Lactated Ringer's (Lactated Ringers) 1,000 mls @ 1,000 mls/hr IV BOLUS ONE Stop: 03/25/21 04:12 Last Admin: 03/25/21 03:23 Dose: 1,000 mls/hr Documented by: Lactated Ringer's (Lactated Ringers) 1,000 mls @ 1,000 mls/hr IV BOLUS ONE Stop: 03/25/21 04:19 Metoclopramide HCl (Metoclopramide 10 Mg/2 Ml Inj) 10 mg IV Q6HR PRN PRN Reason: Nausea And Vomiting Naloxone HCl (Naloxone 0.4 Mg/Ml Vial) 0.2 mg IV Q2MIN PRN PRN Reason: Opiate Reversal Discontinued Medications Hydromorphone HCl (Hydromorphone 1 Mg Inj) 1 mg IV NOW ONE Stop: 03/25/21 02:28 Last Admin: 03/25/21 02:48 Dose: 1 mg Documented by: Lactated Ringer's (Lactated Ringers) 1,000 mls @ 1,000 mls/hr IV BOLUS ONE Stop: 03/25/21 02:19 Last Admin: 03/25/21 01:33 Dose: 1,000 mls/hr Documented by: NARCISO Lactated Ringer's (Lactated Ringers) 1,000 mls @ 1,000 mls/hr IV BOLUS ONE Stop: 03/25/21 03:56 Sodium Chloride (Normal Saline 0.9%) 1,000 mls @ 1,000 mls/hr IV BOLUS ONE Stop: 03/25/21 03:56 Ondansetron HCl (Ondansetron 4 Mg/2 Ml Inj) 4 mg IV NOW ONE Stop: 03/25/21 01:21 Last Admin: 03/25/21 01:32 Dose: 4 mg Documented by: NARCISO Ondansetron HCl (Ondansetron 4 Mg/2 Ml Inj) 4 mg IV NOW ONE Stop: 03/25/21 02:28 Last Admin: 03/25/21 02:48 Dose: 4 mg Documented by: Vital Signs Vital signs: Vital Signs - 8 hr 03/25/21 00:55 Temperature 97 F L Pulse Rate 122 H Respiratory Rate 26 H Blood Pressure 119/78 Pulse Oximetry 98 Medical Decision Making Lab Data Result diagrams: 03/25/21 01:15 03/25/21 02:35 Labs: Lab Results 03/25/21 03/25/21 03/25/21 Range/Units 01:15 01:15 02:35 WBC 12.8 H D (4.5-11.0) X10^3/uL RBC 4.18 (4.0-5.2) X10^6/uL Hgb 12.9 (12.0-16.0) g/dL Hct 43.6 (36-46) % MCV 104.3 H D (80-100) fL MCH 31.0 (26-34) PG MCHC 29.7 L D (30-36) % RDW 15.0 H (11.6-14.8) % Plt Count 352 (150-400) X10^3/uL Neut % (Auto) 83.6 H (50-75) % Lymph % (Auto) 8.9 L (25-40) % [place] % (Auto) 6.5 (3-14) % Eos % (Auto) 0.1 L (2-4) % Baso % (Auto) 0.9 (0-2) % Neut # (Auto) 82680 H (1356-3181) /uL Lymph # (Auto) 1100 (6302-8426) /uL [place] # (Auto) 800 (0-900) /uL Eos # (Auto) 0 (0-450) /uL Baso # (Auto) 100 (0-100) /uL VBG pH (7.33-7.43) VBG pCO2 (45-50) mmHg VBG pO2 (35-45) mmHg VBG HCO3 (23-28) mmol/L VBG Total CO2 (24-29) mmol/L VBG O2 Saturation (70-75) % VBG Base Excess (0-4) mmol/L Sodium 140 (137-145) mmol/L Potassium 4.7 (3.4-5.1) mmol/L Chloride 106 (98-107) mmol/L Carbon Dioxide < 5 L* (22-32) mmol/L BUN 20 H (7-17) mg/dL Creatinine 0.78 (0.52-1.04) mg/dL Estimated GFR > 60.0 (>60) mL/min BUN/Creatinine Ratio 25.6 H (6-22) Glucose Not Reportable Lactate 1.7 (0.7-2.1) mmol/L Calcium 9.5 (8.4-10.2) mg/dL Total Bilirubin 0.4 (0.2-1.3) mg/dL AST Not Reportable ALT Not Reportable Alkaline Phosphatase Not Reportable Total Protein 7.0 (6.3-8.2) g/dL Albumin 4.2 (3.5-5.0) g/dL Globulin 2.8 (1.7-4.1) g/dL Albumin/Globulin Ratio 1.5 (1.0-2.8) Procalcitonin Cancelled Ketones Cancelled 03/25/21 03/25/21 Range/Units 02:35 02:41 WBC (4.5-11.0) X10^3/uL RBC (4.0-5.2) X10^6/uL Hgb (12.0-16.0) g/dL Hct (36-46) % MCV (80-100) fL MCH (26-34) PG MCHC (30-36) % RDW (11.6-14.8) % Plt Count (150-400) X10^3/uL Neut % (Auto) (50-75) % Lymph % (Auto) (25-40) % [place] % (Auto) (3-14) % Eos % (Auto) (2-4) % Baso % (Auto) (0-2) % Neut # (Auto) (3331-9382) /uL Lymph # (Auto) (3059-6187) /uL [place] # (Auto) (0-900) /uL Eos # (Auto) (0-450) /uL Baso # (Auto) (0-100) /uL VBG pH 6.82 L* (7.33-7.43) VBG pCO2 15.3 L (45-50) mmHg VBG pO2 56 H (35-45) mmHg VBG HCO3 3 L (23-28) mmol/L VBG Total CO2 < 5 L (24-29) mmol/L VBG O2 Saturation 61 L (70-75) % VBG Base Excess < -30.0 L (0-4) mmol/L Sodium (137-145) mmol/L Potassium (3.4-5.1) mmol/L Chloride (98-107) mmol/L Carbon Dioxide (22-32) mmol/L BUN (7-17) mg/dL Creatinine (0.52-1.04) mg/dL Estimated GFR (>60) mL/min BUN/Creatinine Ratio (6-22) Glucose 664 H* D Lactate (0.7-2.1) mmol/L Calcium (8.4-10.2) mg/dL Total Bilirubin (0.2-1.3) mg/dL AST Cancelled ALT Cancelled Alkaline Phosphatase Cancelled Total Protein (6.3-8.2) g/dL Albumin (3.5-5.0) g/dL Globulin (1.7-4.1) g/dL Albumin/Globulin Ratio (1.0-2.8) Procalcitonin Cancelled Ketones Cancelled Point of Care Testing Glucose POC 500 Point of care testing: Point of Care Testing Glucose POC 500 Critical Care Time Critical Care Time Critical Care Time: Yes Total Critical Care Time: 30 Attestation: The high probability of a clinically significant, sudden or life threatening deterioration of the [CV] system(s) required my full and direct attention, intervention and personal management. The aggregate critical care time was [30] minutes. This time is in addition to time spent performing reported procedures but includes the following: [x] Data Review and interpretation [x] Patient assessment and monitoring of vital signs [x] Documentation []x Medication orders and management Discharge Plan Departure Patient Disposition: Admitted As Inpatient Clinical Impression: DKA (diabetic ketoacidoses) Admit Date/Time: 03/25/21 02:54 Admit Provider: Doris Scruggs
[2021-03-25] MEDS: HYDROMORPHONE 1 MG INJ IV ×2 (02:48→08:56)
[2021-03-25] MEDS: INSULIN DRIP PREMIX 100 UNIT/100 ML PLAST..BAG 6 UNIT IV (02:53)
[2021-03-25 02:55] LABS: Lactate (Lactic Acid) 1.7 mmol/L (0.7-2.1)
--- NOTE | 2021-03-25 02:58 | DI.RAD.S_ITS ---
PROCEDURE: XR CHEST 1V INDICATIONS: Elevated WBC, course lung sounds TECHNIQUE: One view of the chest was acquired. COMPARISON: [facility], CR, XR CHEST 1V, 03/23/2021, 2:39. FINDINGS: Surgical changes and devices: None. Lungs and pleura: Low lung volumes. Lungs are clear. No pleural effusions or pneumothorax. Mediastinum: Mediastinal contours appear normal. Heart size is normal. Bones and chest wall: No suspicious bony lesions. Overlying soft tissues appear unremarkable. IMPRESSION: No acute cardiopulmonary abnormality. Concordant interpretation with preliminary report. Dictated by: Stanley Mata M.D. on 03/25/2021 at 6:54 Approved by: Stanley Mata M.D. on 03/25/2021 at 6:54
[2021-03-25 03:04] LABS: Glucose 664 mg/dL (70-100)
[2021-03-25 03:12] LABS: HCO3 VBG 3 mmol/L (23-28); PCO2 VBG 15.3 mmHg (45-50); PO2 VBG 56 mmHg (35-45); Total CO2 VBG < 5 mmol/L (24-29)
[2021-03-25 03:13] LABS: Base Excess VBG < -30.0 mmol/L (0-4); Oxygen Saturation VBG 61 % (70-75)
--- NOTE | 2021-03-25 03:28 | P.HP_ITS ---
History of Present Illness History of Present Illness Date Patient Seen: 03/25/21 Time Patient Seen: 03:29 Chief complaint: SOB, d/c'd 12 hours earlier, DKA Narrative: Romi Jimenes is a 31-year-old type 1 diabetic female well known to staff with a history of multiple admissions for diabetic ketoacidosis, just discharged today for the same. Per her , when discharged, she normally is asked if she is ready for discharge, and he stated she was not given a choice. Neither her or her is able to give me a history of what transpired over the past 12 hours. In the room, she is crying and unable to speak. Patient is unable to provide me with the review of systems. In the emergency department she was initiated on an insulin drip without a bolus.? At that time she was reported to have Kussmaul pattern breathing. She is afebrile, blood pressure 119/78, heart rate 122, respiratory rate of 26 oxygen saturation of 98% on room air, she weighs 45.3 kilograms with a BMI of 18.1.? She has a slightly elevated white count of 12.8, with a left shift 10,007 VBG pH was 6.82, VBG pCO2 was 15.3, VBG PO2 was 56, VBG bicarb was 3, VBG total CO2 was less than 5, VBG O2 saturation was 61% and anion gap is 31.5.? Sodium was 140, potassium 4.7, chloride 106, VBG bicarb less than 2.5, BUN 20, creatinine .78 which is greater than her baseline with a EGFR of greater than 60, glucose 664, lactate 1.7, ketones pending, and COVID-19 PCR was negative. Patient History Medical History DKA (diabetic ketoacidoses) History of pyelonephritis Irregular menstrual cycle Migraine headache Nephrolithiasis Noncompliance w/medication treatment due to intermit use of medication Type 1 diabetes mellitus Surgical History History of ureter stent Hx of cataract surgery Hx of local excision of skin lesion Status post laser lithotripsy of ureteral calculus [place] teeth extracted Family & Social History Family History Father In good health Mother Cardiac disease Social History: household members significant other,family Safety & Behavioral: Feels Safe in Current Yes Environment Tobacco & Substance use: Smoking Status Never smoker alcohol intake never alcohol intake frequency holiday/special occasion Substance Use Type does not use Meds Home Medications and Allergies Home Medications Medication Instructions Recorded Confirmed Type glucose 4 gram chewable tablet 4 gram PO Q15M PRN #30 tab 12/12/18 03/23/21 Rx glucagon (human recombinant) 1 mg 1 mg SUBCUT DIRECTED 02/16/19 03/23/21 History solution for injection (Glucagon Emergency Kit) insulin degludec 200 unit/mL (3 53 unit SUBCUT 1100 11/21/19 03/23/21 History mL) subcutaneous pen insulin aspart U-100 100 unit/mL 10 unit SUBCUT AC 05/20/20 03/23/21 History (3 mL) subcutaneous pen (Novolog Flexpen U-100 Insulin aspart) diphenhydramine HCl 50 mg capsule 50 mg PO BEDTIME PRN 09/29/20 03/23/21 History Allergies Allergy/AdvReac Type Severity Reaction Status Date / Time abdalla [ABDALLA] Allergy Intermediate Hives, Verified 02/18/21 18:05 pruritus iodine [IODINE] Allergy Intermediate rash, itchy Verified 02/18/21 18:05 morphine Allergy Intermediate Difficulty Verified 02/18/21 18:05 Breathing shellfish derived Allergy Intermediate rash Verified 02/18/21 18:05 [SHELLFISH DERIVED] adhesive [ADHESIVE] Allergy Unknown tape Verified 02/18/21 18:05 latex [LATEX] Allergy Unknown Hives Verified 02/18/21 18:05 Review of Systems Review of Systems ROS: Yes unobtainable due to mental status Exam Vital Signs (past 8 hours): - 03/25/21 00:55 Temperature 97 F L Pulse Rate 122 H Respiratory Rate 26 H Blood Pressure 119/78 Pulse Oximetry 98 Oxygen Delivery Method Room Air Narrative Exam Narrative: Gen: Lethargic, crying thin 31 y.o. female, complaining of pain HEENT: normocephalic, atraumatic, conjunctiva clear, sclera non-icteric, oral mucosa pink and moist Neck: supple, full ROM, no JVD, trachea is midline Resp: Lungs diminished, non-labored breathing CV: RRR, no murmur or rubs Abd: soft, mildly tender, normoactive BTs Skin: no lesions or rashes, dry and intact Neuro: Alert and oriented X 4 w/no focal deficits. Extremities: moves all 4 extremities, is ambulatory, negative Anmita?s sign Psyche: emotionally labile Objective Labs Result Diagrams: 03/25/21 01:15 03/25/21 02:35 Labs: Laboratory Results - last 24 hr 03/25/21 03/25/21 03/25/21 01:15 01:15 02:35 WBC 12.8 H D RBC 4.18 Hgb 12.9 Hct 43.6 MCV 104.3 H D MCH 31.0 MCHC 29.7 L D RDW 15.0 H Plt Count 352 Neut % (Auto) 83.6 H Lymph % (Auto) 8.9 L [place] % (Auto) 6.5 Eos % (Auto) 0.1 L Baso % (Auto) 0.9 Neut # (Auto) 26329 H Lymph # (Auto) 1100 Bradley # (Auto) 800 Eos # (Auto) 0 Baso # (Auto) 100 VBG pH VBG pCO2 VBG pO2 VBG HCO3 VBG Total CO2 VBG O2 Saturation VBG Base Excess Sodium 140 Potassium 4.7 Chloride 106 Carbon Dioxide < 5 L* BUN 20 H Creatinine 0.78 Estimated GFR > 60.0 BUN/Creatinine Ratio 25.6 H Glucose Not Reportable Lactate 1.7 Calcium 9.5 Total Bilirubin 0.4 AST Not Reportable ALT Not Reportable Alkaline Phosphatase Not Reportable Total Protein 7.0 Albumin 4.2 Globulin 2.8 Albumin/Globulin Ratio 1.5 Procalcitonin Cancelled Ketones Cancelled 03/25/21 03/25/21 02:35 02:41 WBC RBC Hgb Hct MCV MCH MCHC RDW Plt Count Neut % (Auto) Lymph % (Auto) [place] % (Auto) Eos % (Auto) Baso % (Auto) Neut # (Auto) Lymph # (Auto) [place] # (Auto) Eos # (Auto) Baso # (Auto) VBG pH 6.82 L* VBG pCO2 15.3 L VBG pO2 56 H VBG HCO3 3 L VBG Total CO2 < 5 L VBG O2 Saturation 61 L VBG Base Excess < -30.0 L Sodium Potassium Chloride Carbon Dioxide BUN Creatinine Estimated GFR BUN/Creatinine Ratio Glucose 664 H* D Lactate Calcium Total Bilirubin AST Cancelled ALT Cancelled Alkaline Phosphatase Cancelled Total Protein Albumin Globulin Albumin/Globulin Ratio Procalcitonin Cancelled Ketones Cancelled Assessment & Plan Assessment & Plan narrative: Sarabjit Jimenes will be admitted for correction of DKA. 1. Diabetic ketoacidosis, acute, present on admission * She was started on a insulin drip in the emergency department and this will be continued in the ICU. * She continues to be in ketoacidosis with a gap of 31 calculated * NPO * Follow protocol for insulin drip and stop when gap has closed * Per [facility], will give bicarb 75 mmol and potassium 30 meq in 1000 ccs of 1/2 NS at 150 ml/hour * Continue LR bolus then transition to D5 LR, add K if needs to be repleted. No supplemental bicarb at this time. 2. Persistent nausea * IV zofran and reglan * Consideration of using IV haldol 3. Chronic pain * She received diladid 1 mg in the ED, continue q 3 hours prn for severe pain * She needs IV benadryl and hydroxazine while receiving dilaudid due to itching 3. Concern for infection * White count is mildly elevated, chest x-ray is negative for an acute cardiopulmonary process and UA is still pending when the patient is able to void. Have requested bladder scan and straight cath to obtain sample. VTE Prophylaxis: Wells risk score 3 Enoxaparin 40 mg subQ once daily Patient is admitted to the inpatient service due to the severity of disease, risks of further disease progression and this stay is expected to exceed 2 midnights. FEN: IV fluids: on second liter of IV LR bolus, diet: NPO, labs: CBC, BMP per protocol until gap is closed, liver enzymes, Mag, PT/INR Consultants [facility] ICU, care and involvement in the patient?s care is appreciated. Dispo: probable discharge to home Code status: Full Code presumed as patient is unable to articulate. Previously full code with has her surrogate. [X] I have utilized all available immediate resources to obtain, update, or review of the patient's current medications COVID-19 COVID-19 status: Negative Result date/Date tested (Pos, Neg/Pending): 03/25/21 Scores [facility] [place] coma scale eye opening: To sound Alex coma scale verbal response: Orientated [place] coma scale motor response: Localising Alex coma scale total score: 13 Wells' Criteria for PE Clinical signs and symptoms of DVT: No PE is #1 Dx or equally likely: No Heart rate > 100: Yes Immobilization at least 3 days or surg in previous 4 weeks: Yes History of PE or DVT: No Hemoptysis: No Malignancy w/Treatment within 6 months or palliative: No Wells' PE Score total: 3.0 Quality VTE Deep Vein Thrombosis/Pulmonary Embolism Present on Admission: No MIPS - Admit I confirm the patient?s Advance Care Plan is present, Code status is documented, Surrogate decision maker is in patient?s record [If Yes, STOP here]: No MIPS - DC The patient has current or prior documentation of left ventricular ejection fraction (LVEF) less than 40%, or moderate or severely depressed left vent ricular systolic function.: No
[2021-03-25 04:22] LABS: Anisocytosis 1+; Macrocytosis 1+
[2021-03-25 05:45] LABS: COVID19 - ADMIT (NP swab/PCR) Negative (Negative)
--- NOTE | 2021-03-25 06:27 | PC.NURSE ---
Pt has refused to get out of the bed to use the bathroom stating that she doesn't need to go and has refused to have a cath to collect urine for testing.
--- NOTE | 2021-03-25 06:53 | PC.NURSE ---
At 0545 notified ICE CREAM DIPPER Kael that BG was 444, she told me she would call back, when she called back at 0520 she stated that she ordered a urine drug screen and that if pt doesn't get up to us BR, then she will need to have a cath. When asked again about the BG, she stated that she did not want any further bolus of insulin at this time. Pt was informed of order for urine and she refused to use BR/BSC and refused cath.
[2021-03-25] MEDS: [UNRECOGNIZED DRUG - OTHER] IV (07:08)
[2021-03-25] MEDS: POTASSIUM CHLORIDE IV (07:08)
[2021-03-25] MEDS: SODIUM BICARB IV (07:08)
[2021-03-25 08:56] LABS: BUN Creatinine Ratio 28.4 (6-22); Blood Urea Nitrogen 21 mg/dL (7-17); Calcium 9.1 mg/dL (8.4-10.2); Chloride 112 mmol/L (98-107); Estimated Glomerular Filt Rate > 60.0 mL/min (>60); Glucose 328 mg/dL (70-100); HEMOLYSIS < 15 (0-50); Lactate (Lactic Acid) 2.8 mmol/L (0.7-2.1); Sodium 142 mmol/L (137-145)
[2021-03-25 08:59] LABS: Ketones (Beta-Hydroxybutyrate) 9.28 mmol/L (<0.27)
[2021-03-25 09:04] LABS: Carbon Dioxide 5 mmol/L (22-32)
[2021-03-25 09:16] LABS: Procalcitonin 1.93 ng/mL (<0.5)
[2021-03-25 10:41] LABS: Reflexed Lactate in 2 Hours Y
--- NOTE | 2021-03-25 10:55 | P.TELICUCN_ITS ---
History of Present Illness Consult details Chief complaint: SOB, d/c'd 12 hours earlier, DKA :: This patient was seen via real time interactive two-way audiovisual telecommunication. FORMERLY [facility] Medical History DKA (diabetic ketoacidoses) History of pyelonephritis Irregular menstrual cycle Migraine headache Nephrolithiasis Noncompliance w/medication treatment due to intermit use of medication Type 1 diabetes mellitus Surgical History History of ureter stent Hx of cataract surgery Hx of local excision of skin lesion Status post laser lithotripsy of ureteral calculus [place] teeth extracted Family History Father In good health Mother Cardiac disease Social History details: Engaged household members: significant other and family Smoking Status: Never smoker alcohol intake: never Current Medications Current Medications Medications: Home Medications glucose 4 gram chewable tablet 4 gram PO Q15M PRN #30 tab 12/12/18 [Rx Confirmed 03/23/21] glucagon (human recombinant) 1 mg solution for injection (Glucagon Emergency Kit) 1 mg SUBCUT DIRECTED 02/16/19 [History Confirmed 03/23/21] insulin degludec 200 unit/mL (3 mL) subcutaneous pen 53 unit SUBCUT 1100 11/21/19 [History Confirmed 03/23/21] insulin aspart U-100 100 unit/mL (3 mL) subcutaneous pen (Novolog Flexpen U-100 Insulin aspart) 10 unit SUBCUT AC 05/20/20 [History Confirmed 03/23/21] diphenhydramine HCl 50 mg capsule 50 mg PO BEDTIME PRN 09/29/20 [History Confirmed 03/23/21] Visit Medications (administered) Generic Name Dose Route Start Last Admin Trade Name Freq PRN Reason Stop Dose Admin Enoxaparin Sodium 40 mg 03/25/21 09:00 03/25/21 10:06 Enoxaparin 40 Mg/0.4 Ml Syringe SUBCUT Not Given DAILY BLAISE Hydromorphone HCl 1 mg 03/25/21 03:06 03/25/21 08:56 Hydromorphone 1 Mg Inj IV 1 mg Q3H PRN Administration Pain, Moderate (4-6) INSULIN DRIP PREMIX 100 unit in 100 mls @ 6 mls/hr 03/25/21 02:45 03/25/21 10:07 Myxredlin Drip Premix IV 4.53 ml/hr TITRATE BLAISE 4.53 mls/hr Titration Protocol Sodium Bicarbonate 75 meq/ 1,090 mls @ 150 mls/hr 03/25/21 06:00 03/25/21 07:08 Potassium Chloride 30 meq/ IV 03/25/21 13:15 150 mls/hr Sodium Chloride CONT BLAISE Administration Exam Vital Signs (past 8 hours): - 03/25/21 09:00 03/25/21 09:03 03/25/21 09:30 Pulse Rate 121 H 122 H 114 H Respiratory Rate 20 12 Blood Pressure 103/67 105/62 95/52 L Pulse Oximetry 92 98 98 Oxygen Delivery Method Room Air Objective Labs Result Diagrams: 03/25/21 01:15 03/25/21 08:35 Labs: Laboratory Results - last 24 hr 03/25/21 03/25/21 03/25/21 01:15 01:15 02:35 WBC 12.8 H D RBC 4.18 Hgb 12.9 Hct 43.6 MCV 104.3 H D MCH 31.0 MCHC 29.7 L D RDW 15.0 H Plt Count 352 Neut % (Auto) 83.6 H Lymph % (Auto) 8.9 L [place] % (Auto) 6.5 Eos % (Auto) 0.1 L Baso % (Auto) 0.9 Neut # (Auto) 45529 H Lymph # (Auto) 1100 [place] # (Auto) 800 Eos # (Auto) 0 Baso # (Auto) 100 RBC Morphology See below Anisocytosis 1+ H Macrocytosis 1+ H VBG pH VBG pCO2 VBG pO2 VBG HCO3 VBG Total CO2 VBG O2 Saturation VBG Base Excess Sodium 140 Potassium 4.7 Chloride 106 Carbon Dioxide < 5 L* BUN 20 H Creatinine 0.78 Estimated GFR > 60.0 BUN/Creatinine Ratio 25.6 H Glucose Not Reportable Lactate 1.7 Calcium 9.5 Total Bilirubin 0.4 AST Not Reportable ALT Not Reportable Alkaline Phosphatase Not Reportable Total Protein 7.0 Albumin 4.2 Globulin 2.8 Albumin/Globulin Ratio 1.5 Procalcitonin Cancelled Ketones Cancelled SARS-CoV-2 (PCR) 03/25/21 03/25/21 03/25/21 02:35 02:41 03:15 WBC RBC Hgb Hct MCV MCH MCHC RDW Plt Count Neut % (Auto) Lymph % (Auto) [place] % (Auto) Eos % (Auto) Baso % (Auto) Neut # (Auto) Lymph # (Auto) [place] # (Auto) Eos # (Auto) Baso # (Auto) RBC Morphology Anisocytosis Macrocytosis VBG pH 6.82 L* VBG pCO2 15.3 L VBG pO2 56 H VBG HCO3 3 L VBG Total CO2 < 5 L VBG O2 Saturation 61 L VBG Base Excess < -30.0 L Sodium Potassium Chloride Carbon Dioxide BUN Creatinine Estimated GFR BUN/Creatinine Ratio Glucose 664 H* D Lactate Calcium Total Bilirubin AST Cancelled ALT Cancelled Alkaline Phosphatase Cancelled Total Protein Albumin Globulin Albumin/Globulin Ratio Procalcitonin Cancelled Ketones Cancelled SARS-CoV-2 (PCR) Cancelled 03/25/21 03/25/21 03/25/21 03:15 08:35 08:35 WBC RBC Hgb Hct MCV MCH MCHC RDW Plt Count Neut % (Auto) Lymph % (Auto) [place] % (Auto) Eos % (Auto) Baso % (Auto) Neut # (Auto) Lymph # (Auto) [place] # (Auto) Eos # (Auto) Baso # (Auto) RBC Morphology Anisocytosis Macrocytosis VBG pH VBG pCO2 VBG pO2 VBG HCO3 VBG Total CO2 VBG O2 Saturation VBG Base Excess Sodium 142 Potassium 4.0 Chloride 112 H Carbon Dioxide 5 L* BUN 21 H Creatinine 0.74 Estimated GFR > 60.0 BUN/Creatinine Ratio 28.4 H Glucose 328 H D Lactate Calcium 9.1 Total Bilirubin AST ALT Alkaline Phosphatase Total Protein Albumin Globulin Albumin/Globulin Ratio Procalcitonin Ketones 9.28 H SARS-CoV-2 (PCR) Negative 03/25/21 03/25/21 03/25/21 08:35 08:35 Unknown WBC RBC Hgb Hct MCV MCH MCHC RDW Plt Count Neut % (Auto) Lymph % (Auto) [place] % (Auto) Eos % (Auto) Baso % (Auto) Neut # (Auto) Lymph # (Auto) [place] # (Auto) Eos # (Auto) Baso # (Auto) RBC Morphology Anisocytosis Macrocytosis VBG pH VBG pCO2 VBG pO2 VBG HCO3 VBG Total CO2 VBG O2 Saturation VBG Base Excess Sodium Cancelled Potassium Cancelled Chloride Cancelled Carbon Dioxide Cancelled BUN Cancelled Creatinine Cancelled Estimated GFR Cancelled BUN/Creatinine Ratio Cancelled Glucose Cancelled Lactate 2.8 H Calcium Cancelled Total Bilirubin AST ALT Alkaline Phosphatase Total Protein Albumin Globulin Albumin/Globulin Ratio Procalcitonin 1.93 H Ketones SARS-CoV-2 (PCR) Assessment & Plan Assessment & Plan narrative: ?31-year-old female with DM type 1 with a history of multiple admissions for DKA 2/2 non adherence to medication, just discharged today for the same reason. Pt admitted for feeling nauseated with sever DKA. I spoke and gave the recommendation the CONTRACT TECHNICIAN, couldn?t see the patient as patient was admitted to the floor / pending availability of the ICU bed ? Assessment: Sever DKA Leukocytosis Lactic acidosis Dehydration ? Rec: DKA IV treatment per protocol (IV fluid boluses & drip, insulin drip, BMP q4h, replacements protocol) IV Bicarb drip at 150 ml/ hr, VBG q4h, DC bicarb drip when ph 7.2 Phos & Mag Q12 hr with replacement Trend lactate Q6h Pending UA, urine & blood Cx DVT PPX Time Spent With Patient Critical Care time: I spent a total of [] minutes of critical care time on this patient's care today; this time is exclusive of procedural time.
[2021-03-25] MEDS: DEXTROSE 5%-LACTATED RINGERS 1,000 ML 76.5 ML IV (12:49)
[2021-03-25] MEDS: INSULIN DRIP PREMIX 100 UNIT/100 ML PLAST..BAG IV (12:50)
[2021-03-25] MEDS: DEXTROSE 10 % IN WATER 1,000 ML 51 ML IV (14:44)
[2021-03-25 14:55] LABS: Estimated Glomerular Filt Rate > 60.0 mL/min (>60); HEMOLYSIS < 15 (0-50)
[2021-03-25 14:57] LABS: Lactate 2HR (Lactic Acid Rflx) 1.3 mmol/L (0.7-2.1)
[2021-03-25 15:16] LABS: Add Manual Diff / Slide Review NO; Basophils Absolute Auto 100 /uL (0-100); Eosinophils Absolute Auto 0 /uL (0-450); Eosinophils Percent Auto 0.2 % (2-4); Lymphocytes Absolute Auto 700 /uL (1100-4500); Lymphocytes Percent Auto 7.8 % (25-40); Mean Corpuscular HGB Conc 33.5 % (30-36); Mean Corpuscular Hemoglobin 30.6 PG (26-34); Mean Corpuscular Volume 91.3 fL (80-100); Monocytes Absolute Auto 1000 /uL (0-900); Monocytes Percent Auto 10.2 % (3-14); Neutrophils Absolute Auto 7700 /uL (1500-7000); Neutrophils Percent Auto 80.8 % (50-75); Red Blood Cell Count 3.23 X10^6/uL (4.0-5.2); Red Cell Distribution Width 14.2 % (11.6-14.8); White Blood Cell Count 9.5 X10^3/uL (4.5-11.0)
[2021-03-25 15:17] LABS: Hematocrit 29.5 % (36-46)
[2021-03-25 15:18] LABS: Hemoglobin 9.9 g/dL (12.0-16.0); Platelet Count 275 X10^3/uL (150-400)
[2021-03-25 15:27] LABS: Albumin Globulin Ratio 1.2 (1.0-2.8); BUN Creatinine Ratio 37.9 (6-22); Bilirubin Total 0.4 mg/dL (0.2-1.3); Globulin 2.6 g/dL (1.7-4.1)
[2021-03-25 15:28] LABS: Alanine Aminotransferase 90 IU/L (<35); Albumin 3.1 g/dL (3.5-5.0); Alkaline Phosphatase 161 U/L (38-126); Aspartate Aminotransferase 67 IU/L (14-36); Blood Urea Nitrogen 22 mg/dL (7-17); Calcium 8.7 mg/dL (8.4-10.2); Carbon Dioxide 19 mmol/L (22-32); Chloride 116 mmol/L (98-107); Glucose 113 mg/dL (70-100); Potassium 3.9 mmol/L (3.4-5.1); Sodium 142 mmol/L (137-145); Total Protein 5.7 g/dL (6.3-8.2)
[2021-03-25 15:31] LABS: HCO3 VBG 17 mmol/L (23-28); PCO2 VBG 37.8 mmHg (45-50); PO2 VBG 47 mmHg (35-45); Total CO2 VBG 18 mmol/L (24-29)
[2021-03-25 15:32] LABS: Oxygen Saturation VBG 77 % (70-75)
--- NOTE | 2021-03-25 16:10 | PC.NURSE ---
Addendum entered by Taylor Ceja R.N. 03/25/21 17:50: pt continues to cry out loudly- does not use call light upon assessment she chooses not to talk to this rn about her crying- allowed to express emotions Original Note: PT ADMITTED TO ROOM 229- INTERMITTENTLY TEARFUL WITH OCC WAILING- UNABLE TO TELL ME WHERE SHE HURTS, MINIMAL VERBAL COMMUNICATION FROM PT- SHE WAS DISCHARGED FROM THIS HOSPITAL LESS THAN ONE DAY AGO- SHE APPEARS FLUSHED & SWOLLEN TO HER LIMBS, ABD, AND FACE- INSULIN GTT CONTINUES PER DKA PROTOCOL- UNABLE TO SEND URINE SPEC DUE TO MIX WITH STOOL
[2021-03-25] MEDS: POTASSIUM CHLORIDE IN WATER 10 MEQ/100 ML PIGGYBACK 100 MEQ IV ×4 (17:26→21:59)
[2021-03-25] MEDS: LACTATED RINGERS 1,000 ML 125 ML IV (18:32)
[2021-03-25] MEDS: INSULIN GLARGINE 100 UNIT/ML 3ML PEN 14 UNIT SUBCUT (19:49)
[2021-03-25 20:22] LABS: BUN Creatinine Ratio 34.6 (6-22); Blood Urea Nitrogen 18 mg/dL (7-17); Calcium 8.3 mg/dL (8.4-10.2); Carbon Dioxide 23 mmol/L (22-32); Chloride 114 mmol/L (98-107); Estimated Glomerular Filt Rate > 60.0 mL/min (>60); Glucose 132 mg/dL (70-100); HEMOLYSIS < 15 (0-50); Potassium 3.8 mmol/L (3.4-5.1); Sodium 141 mmol/L (137-145)
--- NOTE | 2021-03-25 20:37 | P.CALLCOV_ITS ---
Call Coverage Note Note Date of Patient Contact: 03/25/21 Time of Patient Contact: 20:38 Narrative of Care Provided: Patient has been labile, crying, unable to speak. Closed her gap around 1400 today, was running D5 1/2 and reported to me running at 1 unit/hour, was adminstered Lantus 14 units. Then increased to 2.5. Discussed w/Dr Delvalle, will continue q4 hour bmps along with beta- hydroxyutrate and have advised lab. Procalcitonin is elevated at 1.9, on admission her white count was elevated, today is normal. Reiterated need for U/A and now clostridium difficile. She She is reported to be having diarrhea when she urinates. Have instructed nursing, she may need a clark to isolate the specimens. Concerned about underlying infection which may be causing her labile blood glucoses. 0031: U/A is negative for a UTI. AM serum glucose was 175. Start Glargine 15 units and prandial 5 units w/meals based on 0.6/kg dosing. They placed a clark and stated she has slept ever since. Stool C. diff still pending.
[2021-03-25 20:51] LABS: Ketones (Beta-Hydroxybutyrate) 1.85 mmol/L (<0.27)
[2021-03-25 22:49] LABS: Appearance Urine UA CLEAR; Bilirubin Urine UA 2+ (NEGATIVE); Color Urine UA YELLOW; Glucose Urine UA 1+ g/dL (Negative); Ketones Urine UA 1+ (NEGATIVE); Leukocyte Esterase Urine UA NEGATIVE (NEGATIVE); Nitrite Urine UA NEGATIVE (Negative); Occult Blood Urine UA TRACE-INTACT (Negative); Protein Urine UA 1+ (Negative); Specific Gravity Urine UA 1.015 (1.000-1.035); Urobilinogen Urine UA 0.2 E.U./dL (0.2)
[2021-03-25 22:54] LABS: Ur Creatinine 20 (Normal); Ur Specific Gravity 1.015 (Normal)
[2021-03-25 22:55] LABS: UR Morphine/Opiate cutoff 300 Negative (Negative); Urine Amphetamines Negative (Negative); Urine Barbiturates Negative (Negative); Urine Benzodiazepines Negative (Negative); Urine Cocaine Negative (Negative); Urine MDMA Negative (Negative); Urine Methadone Negative (Negative); Urine Methamphetamines Negative (Negative); Urine Oxycodone Negative (Negative); Urine Phencyclidine Negative (Negative); Urine Tetrahydrocannabinol Negative (Negative); Urine Tricyclic Antidepressant Negative (Negative); Urine pH 5.5 (Normal)
[2021-03-25 22:58] LABS: pH Urine UA 5.5 (4.5-8.0)
[2021-03-25 23:01] LABS: BUN Creatinine Ratio 37.2 (6-22); Blood Urea Nitrogen 16 mg/dL (7-17); Calcium 8.5 mg/dL (8.4-10.2); Carbon Dioxide 22 mmol/L (22-32); Chloride 114 mmol/L (98-107); Estimated Glomerular Filt Rate > 60.0 mL/min (>60); Glucose 123 mg/dL (70-100); HEMOLYSIS < 15 (0-50); Sodium 139 mmol/L (137-145)
[2021-03-25 23:03] LABS: Ketones (Beta-Hydroxybutyrate) 1.82 mmol/L (<0.27)
--- NOTE | 2021-03-25 23:04 | PM.ICURNDS ---
- :: This patient was seen via real time interactive two-way audiovisual telecommunication. Note: Labs/orders/chart reviewed. Latest Chem 7 @ 1930 shows an elevated BOHB of 1.85 despite normal anion gap. Of note, patient is hyperchloremic. She is receiving LR and has already started insulin glargine. Favor continuation of IV insulin until ketonemia has resolved. Discussed with RN and JCARLOS Scruggs.
[2021-03-25 23:25] LABS: Bacteria Urine None Seen; Culture Indicated Urine Cult Not Indicated; Ictotest Urine Negative (Negative); RBC Urine None Seen (0-5/HPF); Renal Epithelial Cells Urine 1-5/HPF (0-1/HPF); WBC Urine None Seen (0-5/HPF)
[2021-03-26] VITALS (9 sets, daily range): BP systolic 103–126; BP diastolic 62–82; PULSE 93–106; RESP 12–24; TEMP 36.8–37.4; O2SAT 94–98
[2021-03-26 02:45] LABS: BUN Creatinine Ratio 33.3 (6-22); Blood Urea Nitrogen 14 mg/dL (7-17); Calcium 8.3 mg/dL (8.4-10.2); Carbon Dioxide 23 mmol/L (22-32); Chloride 113 mmol/L (98-107); Estimated Glomerular Filt Rate > 60.0 mL/min (>60); Glucose 161 mg/dL (70-100); HEMOLYSIS < 15 (0-50); Potassium 3.7 mmol/L (3.4-5.1); Sodium 139 mmol/L (137-145)
[2021-03-26 02:47] LABS: Ketones (Beta-Hydroxybutyrate) 1.28 mmol/L (<0.27)
--- NOTE | 2021-03-26 03:26 | PC.NURSE ---
0300 Pt sleeping in side lying position, O2 Sats 98% on 7L hfnc. O2 weaned down to 3L, maintaining sat >94% RR <20
[2021-03-26] MEDS: DEXTROSE 5%-LACTATED RINGERS 1,000 ML 125 ML IV (04:30)
[2021-03-26 06:08] LABS: Add Manual Diff / Slide Review NO; Basophils Absolute Auto 0 /uL (0-100); Basophils Percent Auto 0.4 % (0-2); Eosinophils Absolute Auto 0 /uL (0-450); Eosinophils Percent Auto 0.4 % (2-4); Hemoglobin 9.3 g/dL (12.0-16.0); Lymphocytes Absolute Auto 800 /uL (1100-4500); Lymphocytes Percent Auto 13.2 % (25-40); Mean Corpuscular HGB Conc 34.3 % (30-36); Mean Corpuscular Volume 90.4 fL (80-100); Monocytes Absolute Auto 500 /uL (0-900); Monocytes Percent Auto 8.6 % (3-14); Neutrophils Absolute Auto 4700 /uL (1500-7000); Neutrophils Percent Auto 77.4 % (50-75); Platelet Count 232 X10^3/uL (150-400); Red Blood Cell Count 2.98 X10^6/uL (4.0-5.2); Red Cell Distribution Width 14.1 % (11.6-14.8); White Blood Cell Count 6.1 X10^3/uL (4.5-11.0)
[2021-03-26 06:12] LABS: BUN Creatinine Ratio 28.6 (6-22); Blood Urea Nitrogen 12 mg/dL (7-17); Calcium 8.4 mg/dL (8.4-10.2); Carbon Dioxide 23 mmol/L (22-32); Chloride 112 mmol/L (98-107); Estimated Glomerular Filt Rate > 60.0 mL/min (>60); Glucose 175 mg/dL (70-100); HEMOLYSIS < 15 (0-50); Potassium 3.6 mmol/L (3.4-5.1); Sodium 138 mmol/L (137-145)
[2021-03-26 06:16] LABS: Ketones (Beta-Hydroxybutyrate) 0.96 mmol/L (<0.27)
--- NOTE | 2021-03-26 06:45 | PC.NURSE ---
Shift Note: Pt had several loose incontinent stools during this shift have not been able to collect sample for c-diff. Sigala cath placed @ 2230 per order and UA and UA tox screen sent to the lab. Insulin drip dc'd @ 2130, D10W dc'd shortly after, IV of D5LR continues @ 125/hr. Has been less tearful this shift and slept for several hours, denies pain at this time.
--- NOTE | 2021-03-26 07:37 | PC.NURSE ---
Addendum entered by Taylor Ceja R.N. 03/26/21 17:32: pt declined to have midline dressing change as she is hopeful to dc home tomorrow and have it removed completely - otherwise if staying another day she will allow dressing change- also received order for po benedryl as per her home routine to aid in sleep Addendum entered by Taylor Ceja R.N. 03/26/21 13:16: cbg 488 - orders rec'd for 10u sq lantus now and an increase to 30u bid- administered Addendum entered by Taylor Ceja R.N. 03/26/21 11:11: AFTER DR. LINDSEY ROUNDED PT'S ATTITUDE AND DEMEANOR WAS MUCH IMPROVED AND COOPERATIVE - CHANGED TO FLOOR CARE STATUS WITH REMOVAL OF TELEMETRY HEART RATE/RHYTHYM HAS BEEN STABLE - SHE IS MORE ENGAGED AND TAKING PO FAIR - NO BM YET TO SEND STOOL SPEC- REMAINS IN ISOLATION UNTIL C-DIFF RULED IN/OUT, TURNED IVF TO TKO DUE TO ADEQUATE PO INTAKE AND PT REPORTS ( AND IS VISUALLY )PUFFY Original Note: PT CALLED NURSE TO ROOM- SHE WAS CRYING AND SOBBING LOUDLY AND INDICATED SHE HAD PAIN - UPON FURTHER ASSESSMENT, SHE RATES 10/10 BACK PAIN - ASKED IF SHE COULD TOLERATE TAKING ANYTHING FOR PAIN ORALLY AND SHE REPLIED MY THROAT HURTS TOO MUCH REPORTED FINDINGS TO
[2021-03-26] MEDS: INSULIN LISPRO 100 UNIT/ML 3ML VIAL SUBCUT ×2 (08:45→12:45)
--- NOTE | 2021-03-26 09:04 | CM.DANOTE ---
DCP: Case received, EMR reviewed. Patient upset, withdrawn to engage in conversation currently. Patient is familiar to this case preparer and liner, due to frequent admissions. Was able to complete DCP assessment based upon familiarity of patient and current notes. Patient is a 31 year old female who admitted yesterday morning to the care of the hospitalist team. PCP: Dr. Limon. Payer: confirmed: [employer]/Medicaid. Patient came to the hospital via private vehicle secondary to not feeling well. She had been here 12 hours prior, and went home. She then came back to the hospital. She holds diagnosis of DKA. Patient is independent as far as mobility, resides in [place] with her significant other, Reggie. Her mother, Argelia, is involved in her care. Patient has been going to outpatient route deliverer here at the hospital accompanied by her mother. She has refused other services, such as [facility], and engagement with [facility] Public Works Director. Her toxicology screen was negative. According to nurse, Taylor, patient has been crying, no motivation, and was noting some incontinence. Discussed possibility of an antidepressant for patient as an option. She will bring this up with hospitalist. P: DCP to continue to follow, and will be available for any resources needed. Patient should be able to go home when she is deemed medically stable. Anni Rudd RN/Public Works Director Discharge Planning/Care Management CM Discharge Assessment Start: 03/26/21 09:02 Freq: Status: Active Protocol: Document 03/26/21 09:02 (Rec: 03/26/21 09:04 [id number]) Discharge Planning Assessment Assigned Ict Sales Assistant Anni Rudd RN/Public Works Director Advance Directives? No Advance Directives on File No History Provided By Patient,Medical Record Prior Living Arrangements House Household Members significant other,family Type of transporation used prior to Relies on Others admit Independent with ADL's Yes Is patient alert and oriented? Yes Needs Assistance With Meal Prep,Managing Medications ,Home Chores / Shopping Caregiver for Another No Barriers to Discharge Yes Comment PCP is Dr. Limon at [facility]# . Barrier is non- compliance with her blood sugars which cause readmissions here at the hospital. Discharge Plan Home Transportation Arrangement Patient reports that her fiance/Reggie will provide transport home. Referrals Initiated Other Additional Comment Pt has been going to see route deliverer on an outpatient basis. Review Status In Process Next Review Type Continued Stay Review
[2021-03-26] MEDS: ENOXAPARIN 40 MG/0.4 ML SYRINGE SUBCUT (09:07)
[2021-03-26] MEDS: INSULIN GLARGINE 100 UNIT/ML 3ML PEN 20 UNIT SUBCUT (09:50)
[2021-03-26 13:05] LABS: Blood Urea Nitrogen 10 mg/dL (7-17); Calcium 8.9 mg/dL (8.4-10.2); Carbon Dioxide 25 mmol/L (22-32); Chloride 110 mmol/L (98-107); Estimated Glomerular Filt Rate > 60.0 mL/min (>60); Glucose 136 mg/dL (70-100); HEMOLYSIS < 15 (0-50); Potassium 3.6 mmol/L (3.4-5.1); Sodium 137 mmol/L (137-145)
[2021-03-26 13:08] LABS: Ketones (Beta-Hydroxybutyrate) 0.12 mmol/L (<0.27)
[2021-03-26] MEDS: INSULIN GLARGINE 100 UNIT/ML 3ML PEN 10 UNIT SUBCUT (13:11)
--- NOTE | 2021-03-26 15:35 | P.PN_ITS ---
Subjective Subjective Interval history: Patient endorses feeling much better this morning, compared to admission. She endorses some return of her appetite. She states that she has enough insulin supply at home, she just struggles with knowing how much insulin to take. She does not have an dowel machine operator here locally, but is trying to find one to enroll with. She endorses having a PCP, and has plans to see them this upcoming Saturday. Exam Vital Signs (past 8 hours): - 03/26/21 12:37 Temperature 99.2 F Pulse Rate 103 H Respiratory Rate 14 Blood Pressure 116/81 Pulse Oximetry 96 Oxygen Delivery Method Room Air Oxygen Flow Rate 0 Narrative Exam Narrative: Gen: patient sitting up in bed comfortably upon my entering the room, in no apparent acute distress HEENT: normocephalic, atraumatic, conjunctiva clear, sclera non-icteric, oral mucosa pink and moist Neck: no JVD, trachea is midline Resp: Lungs diminished, non-labored breathing CV: RRR, no murmur or rubs Abd: soft, non-distended, non-tender, bowel sounds present Skin: no lesions or rashes, dry and intact Neuro: Alert and oriented to person, place, time and situation Extremities: moves all 4 extremities, is ambulatory Objective Labs Result Diagrams: 03/26/21 05:45 03/26/21 12:49 Labs: Laboratory Results - last 24 hr 03/25/21 03/25/21 03/25/21 19:30 19:30 22:30 WBC RBC Hgb Hct MCV MCH MCHC RDW Plt Count Neut % (Auto) Lymph % (Auto) [place] % (Auto) Eos % (Auto) Baso % (Auto) Neut # (Auto) Lymph # (Auto) [place] # (Auto) Eos # (Auto) Baso # (Auto) Sodium 141 139 Potassium 3.8 4.0 Chloride 114 H 114 H Carbon Dioxide 23 22 BUN 18 H 16 Creatinine 0.52 0.43 L Estimated GFR > 60.0 > 60.0 BUN/Creatinine Ratio 34.6 H 37.2 H Glucose 132 H 123 H Calcium 8.3 L 8.5 Urine Color Urine Appearance Urine pH Ur Specific [place] Urine Protein Urine Glucose (UA) Urine Ketones Urine Occult Blood Urine Nitrate Urine Bilirubin Ur Bilirubin Confirm Urine Urobilinogen Ur Leukocyte Esterase Urine RBC Urine WBC Ur Renal Epithelial Cell Urine Bacteria Ur Culture Indicated? U Opiates 300ng/mL cut Ur Oxycodone Screen Urine Methadone Screen Ur Barbiturates Screen U Tricyclic Antidepress Ur Phencyclidine Scrn Ur Amphetamines Screen U Methamphetamines Scrn Ur MDMA Scrn (Ecstasy) U Benzodiazepines Scrn Urine Cocaine Screen U Marijuana (THC) Screen Ketones 1.85 H 1.82 H 03/25/21 03/25/21 03/26/21 22:30 22:30 02:30 WBC RBC Hgb Hct MCV MCH MCHC RDW Plt Count Neut % (Auto) Lymph % (Auto) [place] % (Auto) Eos % (Auto) Baso % (Auto) Neut # (Auto) Lymph # (Auto) [place] # (Auto) Eos # (Auto) Baso # (Auto) Sodium 139 Potassium 3.7 Chloride 113 H Carbon Dioxide 23 BUN 14 Creatinine 0.42 L Estimated GFR > 60.0 BUN/Creatinine Ratio 33.3 H Glucose 161 H Calcium 8.3 L Urine Color Yellow Urine Appearance Clear Urine pH 5.5 Ur Specific [place] 1.015 Urine Protein 1+ H Urine Glucose (UA) 1+ H Urine Ketones 1+ H Urine Occult Blood Trace-intact Urine Nitrate Negative Urine Bilirubin 2+ H Ur Bilirubin Confirm Negative Urine Urobilinogen 0.2 Ur Leukocyte Esterase Negative Urine RBC None seen Urine WBC None seen Ur Renal Epithelial Cell 1-5/hpf H Urine Bacteria None seen Ur Culture Indicated? Cult not indicated U Opiates 300ng/mL cut Negative Ur Oxycodone Screen Negative Urine Methadone Screen Negative Ur Barbiturates Screen Negative U Tricyclic Antidepress Negative Ur Phencyclidine Scrn Negative Ur Amphetamines Screen Negative U Methamphetamines Scrn Negative Ur MDMA Scrn (Ecstasy) Negative U Benzodiazepines Scrn Negative Urine Cocaine Screen Negative U Marijuana (THC) Screen Negative Ketones 1.28 H 03/26/21 03/26/21 03/26/21 05:45 05:45 12:49 WBC 6.1 RBC 2.98 L Hgb 9.3 L Hct 27.0 L MCV 90.4 MCH 31.0 MCHC 34.3 RDW 14.1 Plt Count 232 Neut % (Auto) 77.4 H Lymph % (Auto) 13.2 L [place] % (Auto) 8.6 Eos % (Auto) 0.4 L Baso % (Auto) 0.4 Neut # (Auto) 4700 Lymph # (Auto) 800 L [place] # (Auto) 500 Eos # (Auto) 0 Baso # (Auto) 0 Sodium 138 137 Potassium 3.6 3.6 Chloride 112 H 110 H Carbon Dioxide 23 25 BUN 12 10 Creatinine 0.42 L 0.40 L Estimated GFR > 60.0 > 60.0 BUN/Creatinine Ratio 28.6 H 25.0 H Glucose 175 H 136 H Calcium 8.4 8.9 Urine Color Urine Appearance Urine pH Ur Specific [place] Urine Protein Urine Glucose (UA) Urine Ketones Urine Occult Blood Urine Nitrate Urine Bilirubin Ur Bilirubin Confirm Urine Urobilinogen Ur Leukocyte Esterase Urine RBC Urine WBC Ur Renal Epithelial Cell Urine Bacteria Ur Culture Indicated? U Opiates 300ng/mL cut Ur Oxycodone Screen Urine Methadone Screen Ur Barbiturates Screen U Tricyclic Antidepress Ur Phencyclidine Scrn Ur Amphetamines Screen U Methamphetamines Scrn Ur MDMA Scrn (Ecstasy) U Benzodiazepines Scrn Urine Cocaine Screen U Marijuana (THC) Screen Ketones 0.96 H 0.12 PFSH Medical History DKA (diabetic ketoacidoses) History of pyelonephritis Irregular menstrual cycle Migraine headache Nephrolithiasis Noncompliance w/medication treatment due to intermit use of medication Type 1 diabetes mellitus Surgical History History of ureter stent Hx of cataract surgery Hx of local excision of skin lesion Status post laser lithotripsy of ureteral calculus [place] teeth extracted Family History Father In good health Mother Cardiac disease Social History details: Engaged household members: significant other and family Smoking Status: Never smoker alcohol intake: never Assessment & Plan Assessment & Plan narrative: Sarabjit Jimenes will be admitted for correction of DKA. 1. Diabetic ketoacidosis, acute, present on admission * insulin drip has since been weaned off, after starting subcutaneous lantus * gap has closed, with significant improvement of bicarbonate * working on developing a good insulin regimen inpatient that pt can continue outpatient 2. Persistent nausea, likely due to DKA, improving * IV zofran and reglan * Consideration of using IV haldol 3. Chronic pain * She received dilaudid 1 mg in the ED, continue q 3 hours prn for severe pain * She needs IV benadryl and hydroxazine while receiving dilaudid due to itching VTE Prophylaxis: Lovenox 40 mg once daily Time Spent With Patient Critical Care time: I spent a total of [] minutes of critical care time on this patient's care today; this time is exclusive of procedural time. Quality VTE Deep Vein Thrombosis/Pulmonary Embolism Present on Admission: No
[2021-03-26] MEDS: ONDANSETRON 4 MG/2 ML INJ IV (18:58)
[2021-03-26 19:46] LABS: Clostridium Difficile Tox PCR Negative for C. diff (Negative)
[2021-03-26] MEDS: diphenhydrAMINE 25 MG TABLET 50 MG PO (20:54)
[2021-03-26] MEDS: INSULIN GLARGINE 100 UNIT/ML 3ML PEN 30 UNIT SUBCUT (20:54)
[2021-03-27] VITALS: BP 125/87; PULSE 103; RESP 19; TEMP 37.1; O2SAT 97
[2021-03-27 04:19] VITALS: BP 127/90; PULSE 107; RESP 19; TEMP 37.1; O2SAT 97
[2021-03-27] MEDS: ONDANSETRON 4 MG/2 ML INJ IV ×3 (05:03→22:43)
[2021-03-27 06:19] LABS: Add Manual Diff / Slide Review NO; Basophils Absolute Auto 0 /uL (0-100); Basophils Percent Auto 0.7 % (0-2); Eosinophils Absolute Auto 0 /uL (0-450); Eosinophils Percent Auto 0.5 % (2-4); Hematocrit 28.6 % (36-46); Hemoglobin 9.9 g/dL (12.0-16.0); Lymphocytes Absolute Auto 1000 /uL (1100-4500); Lymphocytes Percent Auto 20.7 % (25-40); Mean Corpuscular HGB Conc 34.5 % (30-36); Mean Corpuscular Hemoglobin 31.2 PG (26-34); Mean Corpuscular Volume 90.4 fL (80-100); Monocytes Absolute Auto 600 /uL (0-900); Monocytes Percent Auto 12.3 % (3-14); Neutrophils Absolute Auto 3300 /uL (1500-7000); Neutrophils Percent Auto 65.8 % (50-75); Platelet Count 252 X10^3/uL (150-400); Red Blood Cell Count 3.16 X10^6/uL (4.0-5.2); Red Cell Distribution Width 14.4 % (11.6-14.8)
[2021-03-27 06:23] LABS: Alanine Aminotransferase 49 IU/L (<35); Albumin 2.8 g/dL (3.5-5.0); Alkaline Phosphatase 123 U/L (38-126); Aspartate Aminotransferase 36 IU/L (14-36); BUN Creatinine Ratio 27.5 (6-22); Bilirubin Total 0.2 mg/dL (0.2-1.3); Blood Urea Nitrogen 14 mg/dL (7-17); Calcium 8.9 mg/dL (8.4-10.2); Carbon Dioxide 26 mmol/L (22-32); Chloride 111 mmol/L (98-107); Estimated Glomerular Filt Rate > 60.0 mL/min (>60); Globulin 2.7 g/dL (1.7-4.1); Glucose 59 mg/dL (70-100); HEMOLYSIS 17 (0-50); Potassium 3.2 mmol/L (3.4-5.1); Sodium 139 mmol/L (137-145); Total Protein 5.5 g/dL (6.3-8.2)
[2021-03-27] MEDS: DEXTROSE 50 % IN WATER 25 GM/50 ML SYRINGE IV (06:49)
--- NOTE | 2021-03-27 06:55 | PC.NURSE ---
0630 - Morning labs reported blood glucose of 59, 1/2 amp d50 given, notified.
[2021-03-27] MEDS: INSULIN GLARGINE 100 UNIT/ML 3ML PEN 30 UNIT SUBCUT (10:00)
[2021-03-27] MEDS: ENOXAPARIN 40 MG/0.4 ML SYRINGE SUBCUT (11:07)
--- NOTE | 2021-03-27 11:27 | PC.NURSE ---
Addendum entered by Amee Esparza R.N. 03/27/21 14:38: Pt did well with lunch, and 1400 CBG 187. Pt continues to voice desire for D/C Addendum entered by Amee Esparza R.N. 03/27/21 12:54: Increased CBG checks to q 2 hours per order, Pt has been 167, 180, SS coverage with meal. Updated on POC, Pt visibly upset by not DC home at lunch time, I usually get out of here at this time Education provided about decreasing readmissions with solid Regime of medications. Pt remains flat and visibly frustrated. Original Note: Pt with slight hypogycemia this AM. After eating breakfast agreeable to half dose of long acting insulin. Pt is very eager to d/c home. today.
[2021-03-27 12:00] VITALS: BP 149/91; PULSE 100; RESP 18; TEMP 36.6; O2SAT 97
[2021-03-27] MEDS: POTASSIUM CHLORIDE 20 MEQ TAB 40 MEQ PO (12:36)
[2021-03-27] MEDS: INSULIN LISPRO 100 UNIT/ML 3ML VIAL SUBCUT ×3 (12:41→21:33)
--- NOTE | 2021-03-27 15:43 | CM.DPC ---
DCP Cont: Per MD, continuing to attempt to find right dosing for long and short acting insulin as pt is so brittle diabetic. MD feels HH RN could be helpful at d/c towards managing her glucose and meds. Pt borderline homebound status and due to triage needs SW unable to meet bedside with pt today to inquire if she would be agreeable with HH RN at d/c but will follow up with her tomorrow morning. CDiff still pending. RAYMOND Roman
[2021-03-27 16:00] VITALS: BP 144/83; PULSE 110; RESP 20; TEMP 37.1; O2SAT 100
--- NOTE | 2021-03-27 16:45 | P.PN_ITS ---
Subjective Subjective Interval history: Patient endorses a good return of her appetite. She endorses keeping all her meals down yesterday, along with her breakfast this morning. She endorses staying well-hydrated. She denies any symptomatic hypoglycemia episodes. Exam Vital Signs (past 8 hours): - 03/27/21 12:00 Temperature 97.8 F Pulse Rate 100 H Respiratory Rate 18 Blood Pressure 149/91 H Pulse Oximetry 97 Oxygen Delivery Method Room Air Oxygen Flow Rate 0 Narrative Exam Narrative: Gen: patient sitting up in bed comfortably upon my entering the room, in no appa rent acute distress HEENT: normocephalic, atraumatic, conjunctiva clear, sclera non-icteric Neck: no JVD, trachea is midline Resp: clear to auscultation bilaterally, non-labored breathing CV: RRR, no murmur or rubs Abd: soft, non-distended, non-tender, bowel sounds present Skin: no lesions or rashes, dry and intact Neuro: Alert and oriented to person, place, time and situation Extremities: moves all 4 extremities, is ambulatory Objective Labs Result Diagrams: 03/27/21 06:00 03/27/21 06:00 Labs: Laboratory Results - last 24 hr 03/25/21 03/27/21 03/27/21 18:40 06:00 06:00 WBC 5.0 RBC 3.16 L Hgb 9.9 L Hct 28.6 L MCV 90.4 MCH 31.2 MCHC 34.5 RDW 14.4 Plt Count 252 Neut % (Auto) 65.8 Lymph % (Auto) 20.7 L [place] % (Auto) 12.3 Eos % (Auto) 0.5 L Baso % (Auto) 0.7 Neut # (Auto) 3300 Lymph # (Auto) 1000 L [place] # (Auto) 600 Eos # (Auto) 0 Baso # (Auto) 0 Sodium 139 Potassium 3.2 L Chloride 111 H Carbon Dioxide 26 BUN 14 Creatinine 0.51 L Estimated GFR > 60.0 BUN/Creatinine Ratio 27.5 H Glucose 59 L Calcium 8.9 Total Bilirubin 0.2 AST 36 ALT 49 H Alkaline Phosphatase 123 Total Protein 5.5 L Albumin 2.8 L Globulin 2.7 Albumin/Globulin Ratio 1.0 C. difficile Tox (PCR) Negative for c. diff [facility] Medical History DKA (diabetic ketoacidoses) History of pyelonephritis Irregular menstrual cycle Migraine headache Nephrolithiasis Noncompliance w/medication treatment due to intermit use of medication Type 1 diabetes mellitus Surgical History History of ureter stent Hx of cataract surgery Hx of local excision of skin lesion Status post laser lithotripsy of ureteral calculus [place] teeth extracted Family History Father In good health Mother Cardiac disease Social History details: Engaged household members: significant other and family Smoking Status: Never smoker alcohol intake: never Assessment & Plan Assessment & Plan narrative: Sarabjit Jimenes will be admitted for correction of DKA. 1. Diabetic ketoacidosis, acute, present on admission, resolved * insulin drip has since been weaned off, after starting subcutaneous lantus * gap has closed, with significant improvement of bicarbonate * working on developing a good insulin regimen inpatient that pt can continue outpatient 2. Persistent nausea, likely due to DKA, improving * IV zofran and reglan * Consideration of using IV haldol 3. Chronic pain * She received dilaudid 1 mg in the ED, continue q 3 hours prn for severe pain * She needs IV benadryl and hydroxazine while receiving dilaudid due to itching VTE Prophylaxis: Lovenox 40 mg once daily Time Spent With Patient Critical Care time: I spent a total of [] minutes of critical care time on this patient's care today; this time is exclusive of procedural time. Quality VTE Deep Vein Thrombosis/Pulmonary Embolism Present on Admission: No
[2021-03-27 18:55] LABS: Base Excess VBG < -30.0 mmol/L (0-4); HCO3 VBG 3 mmol/L (23-28); Oxygen Saturation VBG 64 % (70-75); PCO2 VBG 16.9 mmHg (45-50); PO2 VBG 56 mmHg (35-45); Total CO2 VBG < 5 mmol/L (24-29); pH VBG 6.87 (7.33-7.43)
[2021-03-27 18:59] LABS: pH VBG 6.82 (7.33-7.43)
[2021-03-27 20:00] VITALS: BP 144/95; PULSE 96; RESP 18; TEMP 36.4; O2SAT 98
[2021-03-27] MEDS: diphenhydrAMINE 25 MG TABLET 50 MG PO (21:32)
[2021-03-27] MEDS: INSULIN GLARGINE 100 UNIT/ML 3ML PEN 15 UNIT SUBCUT (21:33)
[2021-03-28] VITALS: BP 149/96; PULSE 96; RESP 17; TEMP 36.5; O2SAT 100
[2021-03-28] MEDS: ONDANSETRON 4 MG/2 ML INJ IV (02:21)
[2021-03-28 04:00] VITALS: BP 139/95; PULSE 96; RESP 17; TEMP 36.7; O2SAT 98
[2021-03-28 05:42] LABS: Blood Urea Nitrogen 13 mg/dL (7-17); Calcium 8.4 mg/dL (8.4-10.2); Carbon Dioxide 27 mmol/L (22-32); Chloride 107 mmol/L (98-107); Estimated Glomerular Filt Rate > 60.0 mL/min (>60); Glucose 91 mg/dL (70-100); HEMOLYSIS < 15 (0-50); Magnesium 1.8 mg/dL (1.6-2.3); Potassium 3.6 mmol/L (3.4-5.1); Sodium 138 mmol/L (137-145)
[2021-03-28 08:09] VITALS: BP 133/87; PULSE 94; RESP 16; TEMP 36.4; O2SAT 98
[2021-03-28] MEDS: INSULIN GLARGINE 100 UNIT/ML 3ML PEN 15 UNIT SUBCUT (08:42)
[2021-03-28] MEDS: ENOXAPARIN 40 MG/0.4 ML SYRINGE SUBCUT (08:43)
[2021-03-28] MEDS: INSULIN LISPRO 100 UNIT/ML 3ML VIAL SUBCUT (08:43)
--- NOTE | 2021-03-28 11:21 | P.PN_ITS ---
Subjective Subjective Interval history: Patient endorses feeling very well this morning. She is very much interested in going home, as she feels like she's back to her baseline health. She endorses having PCP appointment tomorrow, along with diabetes education on . Exam Vital Signs (past 8 hours): - 03/28/21 04:00 03/28/21 08:09 Temperature 98.1 F 97.6 F Pulse Rate 96 H 94 H Respiratory Rate 17 16 Blood Pressure 139/95 H 133/87 Pulse Oximetry 98 98 Oxygen Delivery Method Room Air Oxygen Flow Rate 0 Narrative Exam Narrative: Gen: patient sitting up in bed comfortably upon my entering the room, in no apparent acute distress HEENT: normocephalic, atraumatic, conjunctiva clear, sclera non-icteric Neck: no JVD, trachea is midline Resp: clear to auscultation bilaterally, non-labored breathing CV: RRR, no murmur or rubs Abd: soft, non-distended, non-tender, bowel sounds present Skin: no lesions or rashes, dry and intact Neuro: alert and oriented to person, place, time and situation Extremities: moves all 4 extremities, is ambulatory Objective Labs Result Diagrams: 03/27/21 06:00 03/28/21 05:15 Labs: Laboratory Results - last 24 hr 03/25/21 03/25/21 03/25/21 02:41 05:00 14:10 VBG pH 6.82 L* 6.87 L* 7.26 L VBG pCO2 16.9 L VBG pO2 56 H VBG HCO3 3 L VBG Total CO2 < 5 L VBG O2 Saturation 64 L VBG Base Excess < -30.0 L Sodium Potassium Chloride Carbon Dioxide BUN Creatinine Estimated GFR BUN/Creatinine Ratio Glucose Calcium Magnesium 03/28/21 05:15 VBG pH VBG pCO2 VBG pO2 VBG HCO3 VBG Total CO2 VBG O2 Saturation VBG Base Excess Sodium 138 Potassium 3.6 Chloride 107 Carbon Dioxide 27 BUN 13 Creatinine 0.50 L Estimated GFR > 60.0 BUN/Creatinine Ratio 26.0 H Glucose 91 Calcium 8.4 Magnesium 1.8 PFSH Medical History DKA (diabetic ketoacidoses) History of pyelonephritis Irregular menstrual cycle Migraine headache Nephrolithiasis Noncompliance w/medication treatment due to intermit use of medication Type 1 diabetes mellitus Surgical History History of ureter stent Hx of cataract surgery Hx of local excision of skin lesion Status post laser lithotripsy of ureteral calculus [place] teeth extracted Family History Father In good health Mother Cardiac disease Social History details: Engaged household members: significant other and family Smoking Status: Never smoker alcohol intake: never Assessment & Plan Assessment & Plan narrative: Sarabjit Jimenes was admitted for correction of DKA. 1. Diabetic ketoacidosis, acute, present on admission, resolved * insulin drip has since been weaned off, after starting subcutaneous lantus * gap has closed, with significant improvement of bicarbonate * insulin regimen of lantus 15 units bid with aspart with meals seems to be working for patient 2. Persistent nausea, likely due to DKA, improving * IV zofran and reglan 3. Chronic pain * She received dilaudid 1 mg in the ED, continue q 3 hours prn for severe pain * She needs IV benadryl and hydroxazine while receiving dilaudid due to itching VTE Prophylaxis: Lovenox 40 mg once daily Time Spent With Patient Critical Care time: I spent a total of [] minutes of critical care time on this patient's care today; this time is exclusive of procedural time. Quality VTE Deep Vein Thrombosis/Pulmonary Embolism Present on Admission: No
[2021-03-28 12:00] VITALS: BP 141/95; PULSE 90; RESP 16; TEMP 36.6; O2SAT 100
--- NOTE | 2021-03-28 12:42 | P.DS_ITS ---
History of Present Illness History of Present Illness Chief complaint: SOB, d/c'd 12 hours earlier, DKA Discharge Providers Provider Date of admission: 03/25/21 02:54 Discharge Date: 03/28/21 Primary care physician: Maria Ines Limon DO Consults: 03/25/21 02:59 Consult to Tele-supervisor metal hanging Routine Comment: Consulting Provider: Jerome [employer] Reason for consultation: [employer] Has provider been notified: Yes 03/25/21 09:06 Consult After Hours PICC Line RN Routine Comment: 03/26/21 Consult to Physician Routine Comment: Consulting Provider: Alberto Alvarez Reason for consultation: Continous lability and DKA admissions Has provider been notified: No Discharge provider: Matthew Dennis MD Summary Hospital Course Discharge Diagnosis: 1. Diabetic ketoacidosis, acute, present on admission, resolved 2. Persistent nausea, likely due to DKA, resolved 3. Chronic pain 4. Anemia of chronic inflammation likely, with dilutional anemia inpatient due to high-volume fluid resuscitation for DKA Hospital Course: 31yo female with a hx of type 1 diabetes mellitus diagnosed at age 6 that presents with DKA. Patient has had multiple, recent readmissions for DKA. She endorses having a sufficient supply of insulin at home, both short and long- acting. However, she endorses sometimes being fearful to take the insulin, due to concerns of hypoglycemia. She denies having an insulin pump. Attempts were made at last admission to secure a continuous glucose monitor. However, patient was readmitted before she could pick it up. DKA resolved inpatient with insulin drip, fluids, bicarbonate, etc. An insulin regimen of lantus 15 units in the morning and 15 units in the evening, with sliding scale insulin in-between, kept her glucose levels as well-controlled as they could be, without risking hypoglycemia. Patient has a PCP appointment on March 29 which she is eager to make, along with diabetes education on March 30. I advised the patient to hold her home Trulicity, just for today (day of discharge), as she will be taking insulin today, and she is concerned about becoming hypoglycemic. I advised her to follow-up with PCP tomorrow, as she already has an appointment, to discuss resumption of Trulicity with Lantus, although Trulicity is likely of marginal benefit to the patient, as she is type 1 DM, with likely not much islet cell function, if at all. We discussed that she absolutely needs to adhere to her insulin regimen, establish care with an program arranger (she missed multiple appointment in the past with her former [facility] program arranger, and was subsequently lost to follow-up), and receive regular PCP follow-up, so as to prevent this issue from happening again. Patient verbalized understanding, is agreeable to the plan, and all questions were answered to her apparent satisfaction. Exam Vital Signs (past 8 hours): - 03/28/21 08:09 03/28/21 12:00 Temperature 97.6 F 97.8 F Pulse Rate 94 H 90 Respiratory Rate 16 16 Blood Pressure 133/87 141/95 H Pulse Oximetry 98 100 Oxygen Delivery Method Room Air Oxygen Flow Rate 0 Narrative Exam Narrative: Gen: patient sitting up in bed comfortably upon my entering the room, in no apparent acute distress HEENT: normocephalic, atraumatic, conjunctiva clear, sclera non-icteric Neck: no JVD, trachea is midline Resp: clear to auscultation bilaterally, non-labored breathing CV: RRR, no murmur or rubs Abd: soft, non-distended, non-tender, bowel sounds present Skin: no lesions or rashes, dry and intact Neuro: alert and oriented to person, place, time and situation Extremities: moves all 4 extremities, is ambulatory Objective Labs Result Diagrams: 03/27/21 06:00 03/28/21 05:15 Labs: Laboratory Results - last 24 hr 03/25/21 03/25/21 03/25/21 02:41 05:00 14:10 VBG pH 6.82 L* 6.87 L* 7.26 L VBG pCO2 16.9 L VBG pO2 56 H VBG HCO3 3 L VBG Total CO2 < 5 L VBG O2 Saturation 64 L VBG Base Excess < -30.0 L Sodium Potassium Chloride Carbon Dioxide BUN Creatinine Estimated GFR BUN/Creatinine Ratio Glucose Calcium Magnesium 03/28/21 05:15 VBG pH VBG pCO2 VBG pO2 VBG HCO3 VBG Total CO2 VBG O2 Saturation VBG Base Excess Sodium 138 Potassium 3.6 Chloride 107 Carbon Dioxide 27 BUN 13 Creatinine 0.50 L Estimated GFR > 60.0 BUN/Creatinine Ratio 26.0 H Glucose 91 Calcium 8.4 Magnesium 1.8 PFSH Medical History DKA (diabetic ketoacidoses) History of pyelonephritis Irregular menstrual cycle Migraine headache Nephrolithiasis Noncompliance w/medication treatment due to intermit use of medication Type 1 diabetes mellitus Surgical History History of ureter stent Hx of cataract surgery Hx of local excision of skin lesion Status post laser lithotripsy of ureteral calculus [place] teeth extracted Family History Father In good health Mother Cardiac disease Social History details: Engaged household members: significant other and family Smoking Status: Never smoker alcohol intake: never Discharge Assessment & Plan Assessment and Plan Assessment: Sarabjit Jimenes was admitted for correction of DKA. 1. Diabetic ketoacidosis, acute, present on admission, resolved * insulin drip has since been weaned off, after starting subcutaneous lantus * gap has closed, with significant improvement of bicarbonate * insulin regimen of lantus 15 units bid with aspart with meals seems to be working for patient, and will be outpatient regimen 2. Persistent nausea, likely due to DKA, improving * IV Zofran and Reglan 3. Chronic pain * She received dilaudid 1 mg in the ED, continue q 3 hours prn for severe pain * She needs IV benadryl and hydroxazine while receiving dilaudid due to itching 4. Anemia of chronic inflammation likely, with dilutional anemia inpatient due to high-volume fluid resuscitation for DKA -hemodynamically stable, without signs of overt bleeding, and stable hemoglobin -presenting hemoglobin likely falsely elevated due to hemoconcentration Discharge Plan Discharge orders & Medications Discharge Orders: Discharge (Order); Ordered 03/28/21 Ordered By: Matthew Dennis Prescriptions: New Lantus Solostar U-100 Insulin 100 unit/mL (3 mL) Insulin Pen 15 unit SUBCUT BID 30 Days Qty: 9 11RF Continued glucose 4 gram tablet,chewable 4 gram PO Q15M PRN (Reason: hypoglycemia) Qty: 30 0RF Rx Instructions: until response Glucagon Emergency Kit (human) 1 mg recon soln 1 mg subcut DIRECTED 0RF insulin aspart U-100 [Novolog Flexpen U-100 Insulin] 100 unit/mL (3 mL) insulin pen 10 unit SUBCUT AC 0RF Rx Instructions: Pt states she uses 10 units plus a sliding scale based on her blood sugar. She is vague in response to exact # over 10 units. diphenhydramine HCl 50 mg Capsule 50 mg PO BEDTIME PRN (Reason: Sleep) 0RF Rx Instructions: for itching and sleep Discontinued insulin degludec 200 unit/mL (3 mL) Insulin Pen 53 unit SUBCUT 1100 0RF Follow up/Referrals: Maria Ines Limon DO [Primary Care Provider] - Discharge Data Primary Care Provider: Maria Ines Limon Quality VTE Deep Vein Thrombosis/Pulmonary Embolism Present on Admission: No
--- NOTE | 2021-03-28 15:45 | CM.DPC ---
DCP Cont: Discussed discharge planning during team rounds. Home health was mentioned, but came to the conclusion that outpatient dietary may be more appropriate, as she has a repoir with the staff. Spoke to Iliana, director nurses' registry, have attempted to get her a glucometer, but may pharmacies do not accept [place]. Encouraged her to call Dave at [facility], as he is experienced with these insurances, and may have some advice. P: Patient is discharging home today, she will continue with outpatient director nurses' registry visits. Some adjustments to her lantus were added. Anni Rudd RN/Music Sound Light Technician
[2021-03-31 16:53] LABS: pH VBG 7.27 (7.33-7.43)
== END 2021-03-28 13:29 | disposition home or self-care (01) | DRG 639 ==
LOC: ED 00:46 → AC 02:56 → ICU 15:00
PROVIDERS: Internal Medicine Critical Care Medicine; Student in an Organized Health Care Education/Training Program; Admitting Provider Nurse Practitioner Family; Emergency Provider Emergency Medicine; PCP Student in an Organized Health Care Education/Training Program; Referring Provider Emergency Medicine; Visit Provider Nurse Practitioner Family
DX: E10.10 Type 1 diabetes mellitus with ketoacidosis without coma (principal); E86.0 Dehydration; G89.29 Other chronic pain; D64.89 Other specified anemias; Z20.822 Contact with and (suspected) exposure to COVID-19; Z79.4 Long term (current) use of insulin
CPT/HCPCS: 36415; 36569; 36592; 71045; 80048; 80053; 80305; 81001; 82009; 82805; 82947; 82962; 83605; 83735; 84145; 85025; 87040; 87493; 87635; 87797; 96361; 96374; 96375; 96376; 99284; 99291; C9803; J1170; J1642; J1650; J1815; J2405; J3480; J7050; J7121

== ENCOUNTER 2021-04-12 22:23 | Observation (INO) | payer OTHER, MEDICAID, SELFPAY ==
[2021-03-25 11:59] VITALS: BMI 21.2
--- NOTE | 2021-04-12 22:31 | ED_ITS ---
HPI - General Adult General Chief complaint: Diabetic Problem Stated complaint: high blood sugar Time Seen by Provider: 04/12/21 22:24 Source: patient Mode of arrival: Family Vehicle Limitations: no limitations History of Present Illness HPI narrative: Patient is a 31-year-old female. Well known to myself in this emergency department as being a brittle diabetic. Has been seen multiple times in the past for DKA. Arrives today with symptoms consistent with her prior history of DKA. States she is taking all of her medications as directed. This evening she started to feel very poorly. Not vomiting. This morning she stated that she felt okay. His generalized pain. No chest pain. No shortness of breath. Related Data Home Medications Medication Instructions Recorded Confirmed glucagon (human recombinant) 1 mg 1 mg SUBCUT DIRECTED 02/16/19 03/25/21 solution for injection (Glucagon Emergency Kit) insulin aspart U-100 100 unit/mL 10 unit SUBCUT AC 05/20/20 03/25/21 (3 mL) subcutaneous pen (Novolog Flexpen U-100 Insulin aspart) diphenhydramine HCl 50 mg capsule 50 mg PO BEDTIME PRN 09/29/20 03/25/21 Previous Rx's Medication Instructions Recorded glucose 4 gram chewable tablet 4 gram PO Q15M PRN #30 tab 12/12/18 insulin glargine 100 unit/mL (3 15 unit (0.15 mL) SUBCUT BID 30 03/28/21 mL) subcutaneous pen (Lantus Days #9 ml Solostar U-100 Insulin) Allergies Allergy/AdvReac Type Severity Reaction Status Date / Time abdalla [ABDALLA] Allergy Intermediate Hives, Verified 04/12/21 22:43 pruritus iodine [IODINE] Allergy Intermediate rash, itchy Verified 04/12/21 22:43 morphine Allergy Intermediate Difficulty Verified 04/12/21 22:43 Breathing shellfish derived Allergy Intermediate rash Verified 04/12/21 22:43 [SHELLFISH DERIVED] adhesive [ADHESIVE] Allergy Unknown tape Verified 04/12/21 22:43 latex [LATEX] Allergy Unknown Hives Verified 04/12/21 22:43 Review of Systems Review of Systems ROS Unobtainable: All systems reviewed & are unremarkable except as noted in HPI and below Constitutional Constitutional: Denies chills, Reports fatigue, Denies fever(s), Denies he adache(s) and Reports lethargy Eyes Eyes: Reports system reviewed and no additional complaints, except as documented ENT Ears, Nose, Mouth, and Throat: Reports system reviewed and no additional complaints, except as documented and Denies headache(s) Cardiovascular Cardiovascular: Reports system reviewed and no additional complaints, except as documented, Denies chest pain and Denies dyspnea Respiratory Respiratory: Reports system reviewed and no additional complaints, except as documented and Denies dyspnea Gastrointestinal Gastrointestinal: Reports abdominal pain, Denies change in bowel habits, Denies loose stools and Denies vomiting Genitourinary Genitourinary: Reports system reviewed and no additional complaints, except as documented Musculoskeletal Comments: Pain all over her body Integumentary/Breasts Skin/Breast: Denies rash Neurologic Neurologic: Reports system reviewed and no additional complaints, except as docu mented and Denies headache(s) Endocrine Endocrine: Reports system reviewed and no additional complaints, except as documented and Reports fatigue Hematologic/Lymphatic On Anticoagulants: No Allergic/Immunologic Allergic/Immunologic: Reports system reviewed and no additional complaints, except as documented Patient History Medical History DKA (diabetic ketoacidoses) History of pyelonephritis Irregular menstrual cycle Migraine headache Nephrolithiasis Noncompliance w/medication treatment due to intermit use of medication Type 1 diabetes mellitus Surgical History History of ureter stent Hx of cataract surgery Hx of local excision of skin lesion Status post laser lithotripsy of ureteral calculus [place] teeth extracted Family History Father In good health Mother Cardiac disease Social History details: Engaged household members: significant other and family Smoking Status: Never smoker alcohol intake: never Smoking Status: Never smoker alcohol intake frequency: holidays/special occasions only Substance Use Type: does not use Exam Initial Vital Signs Initial Vital Signs: Vital Signs Temperature 97.4 F L 04/12/21 22:40 Pulse Rate 130 H 04/12/21 22:40 Respiratory Rate 18 04/12/21 22:40 Blood Pressure 147/97 H 04/12/21 22:40 Pulse Oximetry 99 04/12/21 22:40 Const General: cooperative and frail appearing Nutritional Appearance: underweight HENMT Head: normal to inspection and normocephalic Mouth: No moist mucous membranes Eyes General: appearance normal, both eyes and all related structures Neck Neck: normal visual inspection Chest Chest: normal inspection of the chest Resp Effort & Inspection: normal respiratory effort and tachypneic Auscultation: clear to auscultation bilaterally Cardio Rate: tachycardic Rhythm: regular rhythm GI Inspection: normal to inspection Palpation: soft and No tender Skin General: no rashes or lesions noted Neuro General: patient alert, patient awake, patient oriented x3 and moves all extremities Extrem General: normal to inspection and capillary refill normal Psych Appearance: grossly normal and well kempt Scores GCS Alex coma scale eye opening: Spontaneous Alex coma scale verbal response: Orientated Alex coma scale motor response: Obey commands [place] coma scale total score: 15 Course Orders Ordered: ED Orders 04/12/21 22:26 Urinalysis and Microscopic Stat Urine Drug Screen, Rapid Stat 04/12/21 22:28 Venous Blood Gas Stat 04/12/21 22:32 COVID19 - ADMIT (REVIEW SCHEDULING COORDINATOR swab/PCR) Stat 04/12/21 22:35 Complete Blood Count AUTO DIFF Stat Comprehensive Metabolic Panel Stat Ethanol (ETOH) Stat Ketones (Beta-Hydroxybutyrate) Stat Lactate (Lactic Acid) Stat Lipase Stat Magnesium Stat Phosphorous Stat Test Serum,Qual Stat Procalcitonin Stat Acetaminophen (Acetaminophen 325 Mg Tablet) 650 mg PO Q4HR PRN PRN Reason: Fever/Mild Pain (1-3) Al Hydrox/Mg Hydrox/Simethicone (Mag Hydrox/Alum/Simeth 30 Ml Udc) 30 ml PO Q6HR PRN PRN Reason: Dyspepsia Dextrose (Dextrose 50 % In Water 25 Gm/50 Ml Syringe) 25 gm IV PRN PRN PRN Reason: Hypoglycemia Enoxaparin Sodium (Enoxaparin 40 Mg/0.4 Ml Syringe) 40 mg SUBCUT DAILY BLAISE Sodium Chloride (Normal Saline 0.9%) 1,000 mls @ 250 mls/hr IV CONT BLAISE Last Admin: 04/12/21 23:23 Dose: 250 mls/hr Documented by: SILVIA INSULIN DRIP PREMIX (Myxredlin Drip Premix) 100 unit in 100 mls @ 6 mls/hr IV TITRATE BLAISE; Protocol Last Admin: 04/12/21 23:18 Dose: 6 ml/hr, 6 mls/hr Documented by: SILVIA Cosigned by: YAMILETH Sodium Bicarbonate 100 meq/ (Dextrose) 1,100 mls @ 125 mls/hr IV CONT BLAISE Ketorolac Tromethamine (Ketorolac 30 Mg/Ml Vial) 30 mg IV Q6HR PRN PRN Reason: Pain, Severe (7-10) Stop: 04/17/21 23:42 Naloxone HCl (Naloxone 0.4 Mg/Ml Vial) 0.2 mg IV Q2MIN PRN PRN Reason: Opiate Reversal Ondansetron HCl (Ondansetron 4 Mg/2 Ml Inj) 4 mg IV Q4HR PRN PRN Reason: Nausea And Vomiting Discontinued Medications Hydromorphone HCl (Hydromorphone 0.5 Mg Inj) 0.5 mg IV NOW ONE Stop: 04/12/21 22:41 Last Admin: 04/12/21 22:46 Dose: 0.5 mg Documented by: SILVIA Sodium Chloride (Normal Saline 0.9%) 1,000 mls @ 1,000 mls/hr IV BOLUS ONE Stop: 04/12/21 23:23 Last Infusion: 04/12/21 23:23 Dose: 0 mls/hr Documented by: Admin: 04/12/21 22:38 Dose: 1,000 mls/hr Documented by: SILVIA Ondansetron HCl (Ondansetron 4 Mg/2 Ml Inj) 4 mg IV NOW ONE Stop: 04/12/21 22:41 Last Admin: 04/12/21 23:00 Dose: 4 mg Documented by: SILVIA Vital Signs Vital signs: Vital Signs - 8 hr 04/12/21 22:40 Temperature 97.4 F L Pulse Rate 130 H Respiratory Rate 18 Blood Pressure 147/97 H Pulse Oximetry 99 Medical Decision Making Medical Records Medical records reviewed: Yes I reviewed the patient's medical records. Lab Data Lab results reviewed: Yes I reviewed the patient's lab results. Result diagrams: 04/12/21 22:35 04/12/21 22:35 Labs: Lab Results 04/12/21 04/12/21 04/12/21 Range/Units 22:28 22:32 22:35 WBC 11.1 H (4.5-11.0) X10^3/uL RBC 4.38 (4.0-5.2) X10^6/uL Hgb 13.0 (12.0-16.0) g/dL Hct 42.8 (36-46) % MCV 97.8 (80-100) fL MCH 29.7 (26-34) PG MCHC 30.4 (30-36) % RDW 14.6 (11.6-14.8) % Neut % (Auto) Not Reportable Lymph % (Auto) Not Reportable [place] % (Auto) Not Reportable Eos % (Auto) Not Reportable Baso % (Auto) Not Reportable Lymph # (Auto) Not Reportable [place] # (Auto) Not Reportable Baso # (Auto) Not Reportable VBG pH 7.03 L* (7.33-7.43) VBG pCO2 15.5 L (45-50) mmHg VBG pO2 51 H (35-45) mmHg VBG HCO3 4 L (23-28) mmol/L VBG Total CO2 < 5 L (24-29) mmol/L VBG O2 Saturation 69 L (70-75) % VBG Base Excess -27.0 L (0-4) mmol/L Sodium (137-145) mmol/L Potassium (3.4-5.1) mmol/L Chloride (98-107) mmol/L Carbon Dioxide (22-32) mmol/L BUN (7-17) mg/dL Creatinine (0.52-1.04) mg/dL Estimated GFR (>60) mL/min BUN/Creatinine Ratio (6-22) Glucose (70-100) mg/dL Lactate (0.7-2.1) mmol/L Calcium (8.4-10.2) mg/dL Phosphorus (2.5-4.5) mg/dL Magnesium (1.6-2.3) mg/dL Total Bilirubin (0.2-1.3) mg/dL AST (14-36) IU/L ALT (<35) IU/L Alkaline Phosphatase (38-126) U/L Total Protein (6.3-8.2) g/dL Albumin (3.5-5.0) g/dL Globulin (1.7-4.1) g/dL Albumin/Globulin Ratio (1.0-2.8) Lipase (23-300) U/L Procalcitonin (<0.5) ng/mL Serum , Qual (Negative) Ketones (<0.27) mmol/L SARS-CoV-2 (PCR) Negative (Negative) 04/12/21 04/12/21 04/12/21 Range/Units 22:35 22:35 22:35 WBC (4.5-11.0) X10^3/uL RBC (4.0-5.2) X10^6/uL Hgb (12.0-16.0) g/dL Hct (36-46) % MCV (80-100) fL MCH (26-34) PG MCHC (30-36) % RDW (11.6-14.8) % Neut % (Auto) Lymph % (Auto) [place] % (Auto) Eos % (Auto) Baso % (Auto) Lymph # (Auto) [place] # (Auto) Baso # (Auto) VBG pH (7.33-7.43) VBG pCO2 (45-50) mmHg VBG pO2 (35-45) mmHg VBG HCO3 (23-28) mmol/L VBG Total CO2 (24-29) mmol/L VBG O2 Saturation (70-75) % VBG Base Excess (0-4) mmol/L Sodium 136 L (137-145) mmol/L Potassium 5.5 H (3.4-5.1) mmol/L Chloride 101 (98-107) mmol/L Carbon Dioxide < 5 L* (22-32) mmol/L BUN 32 H (7-17) mg/dL Creatinine 0.90 (0.52-1.04) mg/dL Estimated GFR > 60.0 (>60) mL/min BUN/Creatinine Ratio 35.6 H (6-22) Glucose 748 H* (70-100) mg/dL Lactate 1.7 (0.7-2.1) mmol/L Calcium 9.8 (8.4-10.2) mg/dL Phosphorus 8.0 H (2.5-4.5) mg/dL Magnesium 2.6 H (1.6-2.3) mg/dL Total Bilirubin 0.5 (0.2-1.3) mg/dL AST 25 (14-36) IU/L ALT 27 (<35) IU/L Alkaline Phosphatase 271 H (38-126) U/L Total Protein 7.7 (6.3-8.2) g/dL Albumin 4.6 (3.5-5.0) g/dL Globulin 3.1 (1.7-4.1) g/dL Albumin/Globulin Ratio 1.5 (1.0-2.8) Lipase 223 (23-300) U/L Procalcitonin 0.13 (<0.5) ng/mL Serum , Qual (Negative) Ketones 17.48 H (<0.27) mmol/L SARS-CoV-2 (PCR) (Negative) 04/12/21 Range/Units 22:35 WBC (4.5-11.0) X10^3/uL RBC (4.0-5.2) X10^6/uL Hgb (12.0-16.0) g/dL Hct (36-46) % MCV (80-100) fL MCH (26-34) PG MCHC (30-36) % RDW (11.6-14.8) % Neut % (Auto) Lymph % (Auto) [place] % (Auto) Eos % (Auto) Baso % (Auto) Lymph # (Auto) [place] # (Auto) Baso # (Auto) VBG pH (7.33-7.43) VBG pCO2 (45-50) mmHg VBG pO2 (35-45) mmHg VBG HCO3 (23-28) mmol/L VBG Total CO2 (24-29) mmol/L VBG O2 Saturation (70-75) % VBG Base Excess (0-4) mmol/L Sodium (137-145) mmol/L Potassium (3.4-5.1) mmol/L Chloride (98-107) mmol/L Carbon Dioxide (22-32) mmol/L BUN (7-17) mg/dL Creatinine (0.52-1.04) mg/dL Estimated GFR (>60) mL/min BUN/Creatinine Ratio (6-22) Glucose (70-100) mg/dL Lactate (0.7-2.1) mmol/L Calcium (8.4-10.2) mg/dL Phosphorus (2.5-4.5) mg/dL Magnesium (1.6-2.3) mg/dL Total Bilirubin (0.2-1.3) mg/dL AST (14-36) IU/L ALT (<35) IU/L Alkaline Phosphatase (38-126) U/L Total Protein (6.3-8.2) g/dL Albumin (3.5-5.0) g/dL Globulin (1.7-4.1) g/dL Albumin/Globulin Ratio (1.0-2.8) Lipase (23-300) U/L Procalcitonin (<0.5) ng/mL Serum , Qual Negative (Negative) Ketones (<0.27) mmol/L SARS-CoV-2 (PCR) (Negative) Point of Care Testing Glucose POC 500 Point of care testing: Point of Care Testing Glucose POC 500 MDM Narrative Medical decision making narrative: Patient is well-known to myself. She has a history of DKA. Presents today in DKA. Anion gap is 30. Potassium is 5.5. PH of 7.0. Patient started on fluids. Will start on a insulin drip. Patient does require admission to the hospital for further evaluation and treatment. Discussed the case with MARGO Mendez the [facility] provider who will admit. She asked that the patient be started on a bicarb drip. This was ordered in the emergency department. I did discuss the need for admission with the patient. She expressed understanding and agreement. Critical Care Time Critical Care Time Critical Care Time: Yes Total Critical Care Time: 35 Attestation: The high probability of a clinically significant, sudden or life threatening deterioration of the endocrine system(s) required my full and direct attention, intervention and personal management. The aggregate critical care time was [35] minutes. This time is in addition to time spent performing reported procedures but includes the following: [x] Data Review and interpretation [x] Patient assessment and monitoring of vital signs [x] Documentation [x] Medication orders and management Discharge Plan Departure Patient Disposition: Admitted As Inpatient Clinical Impression: DKA (diabetic ketoacidoses) Admit Date/Time: 04/12/21 23:32 Admit Provider: Amee Mendez
[2021-04-12 22:36] LABS: HCO3 VBG 4 mmol/L (23-28); PCO2 VBG 15.5 mmHg (45-50); PO2 VBG 51 mmHg (35-45); Total CO2 VBG < 5 mmol/L (24-29); pH VBG 7.03 (7.33-7.43)
[2021-04-12 22:37] LABS: Oxygen Saturation VBG 69 % (70-75)
[2021-04-12] MEDS: SODIUM CHLORIDE 0.9% 1,000 ML 1000 ML IV (22:38)
[2021-04-12 22:40] VITALS: BP 147/97; PULSE 130; RESP 18; TEMP 36.3; O2SAT 99
[2021-04-12] MEDS: HYDROMORPHONE 0.5 MG INJ IV (22:46)
[2021-04-12 22:52] VITALS: BP 133/76; PULSE 126; RESP 16; O2SAT 100
[2021-04-12 23:00] VITALS: PULSE 122; RESP 16; O2SAT 100
[2021-04-12] MEDS: ONDANSETRON 4 MG/2 ML INJ IV (23:00)
[2021-04-12 23:02] LABS: Lactate (Lactic Acid) 1.7 mmol/L (0.7-2.1); Lipase 223 U/L (23-300); Magnesium 2.6 mg/dL (1.6-2.3)
[2021-04-12 23:03] LABS: Alanine Aminotransferase 27 IU/L (<35); Albumin 4.6 g/dL (3.5-5.0); Albumin Globulin Ratio 1.5 (1.0-2.8); Alkaline Phosphatase 271 U/L (38-126); Aspartate Aminotransferase 25 IU/L (14-36); BUN Creatinine Ratio 35.6 (6-22); Bilirubin Total 0.5 mg/dL (0.2-1.3); Blood Urea Nitrogen 32 mg/dL (7-17); Calcium 9.8 mg/dL (8.4-10.2); Chloride 101 mmol/L (98-107); Estimated Glomerular Filt Rate > 60.0 mL/min (>60); Globulin 3.1 g/dL (1.7-4.1); HEMOLYSIS 35 (0-50); Sodium 136 mmol/L (137-145); Total Protein 7.7 g/dL (6.3-8.2)
[2021-04-12 23:05] LABS: Pregnancy Test Serum,Qual Negative (Negative)
[2021-04-12 23:07] LABS: Potassium 5.5 mmol/L (3.4-5.1)
[2021-04-12 23:12] LABS: Glucose 748 mg/dL (70-100)
[2021-04-12 23:13] LABS: Carbon Dioxide < 5 mmol/L (22-32)
[2021-04-12 23:14] LABS: Hematocrit 42.8 % (36-46); Mean Corpuscular HGB Conc 30.4 % (30-36); Mean Corpuscular Hemoglobin 29.7 PG (26-34); Mean Corpuscular Volume 97.8 fL (80-100); Red Blood Cell Count 4.38 X10^6/uL (4.0-5.2); Red Cell Distribution Width 14.6 % (11.6-14.8); White Blood Cell Count 11.1 X10^3/uL (4.5-11.0)
[2021-04-12] MEDS: INSULIN DRIP PREMIX 100 UNIT/100 ML PLAST..BAG 6 UNIT IV (23:18)
[2021-04-12 23:19] LABS: Procalcitonin 0.13 ng/mL (<0.5)
[2021-04-12] MEDS: SODIUM CHLORIDE 0.9% 1,000 ML 250 ML IV (23:23)
[2021-04-12 23:29] LABS: Add Manual Diff / Slide Review YES
[2021-04-12 23:30] VITALS: BP 128/72; PULSE 121; RESP 16; O2SAT 100
[2021-04-12 23:38] LABS: Ketones (Beta-Hydroxybutyrate) 17.48 mmol/L (<0.27)
[2021-04-12 23:39] LABS: COVID19 - ADMIT (NP swab/PCR) Negative (Negative)
--- NOTE | 2021-04-12 23:49 | PM.HP.1 ---
History of Present Illness History of Present Illness Date Patient Seen: 04/12/21 Time Patient Seen: 23:50 Chief complaint: high blood sugar Narrative: ?Ms. Sarabjit Jimenes is a 31-year-old female patient with a history significant for poorly controlled type 1 diabetes, frequent admissions for DKA (Patient has had a total of 14 admits in 2020 with 4 stand-alone ER visits), migraines and irregular menstruation?who presents to the ED in DKA.? Presents today complaining that she is dehydrated and is again in DKA.? She states that she has been taking her insulin, she has not been sick recently she has been eating and drinking appropriately she has no complaints of diarrhea, dysuria, flank pain.? There are no skin complaints or findings.? She does not have any vomiting, diarrhea, neurologic complaints, or headache.? Main complaint is that she is very dry, body aches, and thirsty.? She denies chest pain, shortness of breath, cough, nasal drainage, sore throat, headache, changes in vision, new or unusual weakness, nausea, abdominal pain, vomiting at this time, recent illness, injury, or trauma. This evening she started to feel very poorly. This morning she stated that she felt okay.? Has generalized pain and body aches all over. Patient's vitals upon admit temp 97.4?, BP 147/97, HR 130, RR 18, O2 saturation 99% on room air. VBG is a pH 7.03, pCO2 15.5, PO2 51, HC03 4, TCO2< 5, O2 sat 69%, BE -27. WBC 11.1, remainder of CBC is WNL. Sodium 136, potassium 5.5, BUN 32, glucose 748, A1c> 14%, magnesium 2.6, phosphorus 8.0, alk-phos 271, lipase WNL, lactate WNL, procalcitonin-WNL, hCG negative, MRSA negative, salicylates negative, alcohol negative, ketones 17.48, COVID negative, does not meet SIRS/sepsis criteria. Patient admitted to ICU for DKA. Patient History Medical History DKA (diabetic ketoacidoses) History of pyelonephritis Irregular menstrual cycle Migraine headache Nephrolithiasis Noncompliance w/medication treatment due to intermit use of medication Type 1 diabetes mellitus Surgical History History of ureter stent Hx of cataract surgery Hx of local excision of skin lesion Status post laser lithotripsy of ureteral calculus [place] teeth extracted Family & Social History Family History Father In good health Mother Cardiac disease Social History: household members significant other,family Safety & Behavioral: Feels Safe in Current Yes Environment Been Physically Hurt or No Threatened By a Person Tobacco & Substance use: Smoking Status Never smoker alcohol intake never alcohol intake frequency holiday/special occasion Substance Use Type does not use Meds Home Medications and Allergies Home Medications Medication Instructions Recorded Confirmed Type glucose 4 gram chewable tablet 4 gram PO Q15M PRN #30 tab 12/12/18 03/25/21 Rx glucagon (human recombinant) 1 mg 1 mg SUBCUT DIRECTED 02/16/19 03/25/21 History solution for injection (Glucagon Emergency Kit) insulin aspart U-100 100 unit/mL 10 unit SUBCUT AC 05/20/20 03/25/21 History (3 mL) subcutaneous pen (Novolog Flexpen U-100 Insulin aspart) diphenhydramine HCl 50 mg capsule 50 mg PO BEDTIME PRN 09/29/20 03/25/21 History insulin glargine 100 unit/mL (3 15 unit (0.15 mL) SUBCUT BID 30 03/28/21 Rx mL) subcutaneous pen (Lantus Days #9 ml Solostar U-100 Insulin) Allergies Allergy/AdvReac Type Severity Reaction Status Date / Time abdalla [ABDLALA] Allergy Intermediate Hives, Verified 04/12/21 22:43 pruritus iodine [IODINE] Allergy Intermediate rash, itchy Verified 04/12/21 22:43 morphine Allergy Intermediate Difficulty Verified 04/12/21 22:43 Breathing shellfish derived Allergy Intermediate rash Verified 04/12/21 22:43 [SHELLFISH DERIVED] adhesive [ADHESIVE] Allergy Unknown tape Verified 04/12/21 22:43 latex [LATEX] Allergy Unknown Hives Verified 04/12/21 22:43 Review of Systems Review of Systems Narrative: All 12 point systems reviewed with the patient and are negative except otherwise documented. Exam Vital Signs (past 8 hours): - 04/12/21 22:40 Temperature 97.4 F L Pulse Rate 130 H Respiratory Rate 18 Blood Pressure 147/97 H Pulse Oximetry 99 Oxygen Delivery Method Room Air Narrative Exam Narrative: Narrative: ill appearing emaciated female, face pale who appears very ill, rousable with verbal/physical stimulation, in no respiratory distress.? Appears older than stated age.? Patient's presentation appears markedly worse than prior admits, though less symptomatic DKA Const Other: Pale face, with erythema around eyes and cheeks HENMT Other: NC/ AT, EOMI, Sclera anicteric, oropharynx with dry mucus membranes Neck Other: supple, no adenopathy or thyromegaly Resp Other: Lungs: decreased breath sounds Cardio Other: CV: Tachycardic, nl Sl S2 GI Other: abd: scaphoid soft/nontender/ non distended Skin Other: no lesions noted, face puffy with erythema of cheeks and eyes Neuro Other: awake and alert, answers questions appropriately Cranial nerves intact, strength symmetric and equal, Sensation in tact, gait not assessed Extrem Other: no edema Psych Other: Patient appears to have passive approach to managing her diabetes, and lacks the cognitive and emotional ability to manage her diabetes. Objective Labs Result Diagrams: 04/12/21 22:35 04/12/21 22:35 Labs: Laboratory Results - last 24 hr 04/12/21 04/12/21 04/12/21 22:28 22:32 22:35 WBC 11.1 H RBC 4.38 Hgb 13.0 Hct 42.8 MCV 97.8 MCH 29.7 MCHC 30.4 RDW 14.6 Neut % (Auto) Not Reportable Lymph % (Auto) Not Reportable [place] % (Auto) Not Reportable Eos % (Auto) Not Reportable Baso % (Auto) Not Reportable Lymph # (Auto) Not Reportable [place] # (Auto) Not Reportable Baso # (Auto) Not Reportable VBG pH 7.03 L* VBG pCO2 15.5 L VBG pO2 51 H VBG HCO3 4 L VBG Total CO2 < 5 L VBG O2 Saturation 69 L VBG Base Excess -27.0 L Sodium Potassium Chloride Carbon Dioxide BUN Creatinine Estimated GFR BUN/Creatinine Ratio Glucose Lactate Calcium Phosphorus Magnesium Total Bilirubin AST ALT Alkaline Phosphatase Total Protein Albumin Globulin Albumin/Globulin Ratio Lipase Procalcitonin Serum , Qual Ketones SARS-CoV-2 (PCR) Negative 04/12/21 04/12/21 04/12/21 22:35 22:35 22:35 WBC RBC Hgb Hct MCV MCH MCHC RDW Neut % (Auto) Lymph % (Auto) [place] % (Auto) Eos % (Auto) Baso % (Auto) Lymph # (Auto) [place] # (Auto) Baso # (Auto) VBG pH VBG pCO2 VBG pO2 VBG HCO3 VBG Total CO2 VBG O2 Saturation VBG Base Excess Sodium 136 L Potassium 5.5 H Chloride 101 Carbon Dioxide < 5 L* BUN 32 H Creatinine 0.90 Estimated GFR > 60.0 BUN/Creatinine Ratio 35.6 H Glucose 748 H* Lactate 1.7 Calcium 9.8 Phosphorus 8.0 H Magnesium 2.6 H Total Bilirubin 0.5 AST 25 ALT 27 Alkaline Phosphatase 271 H Total Protein 7.7 Albumin 4.6 Globulin 3.1 Albumin/Globulin Ratio 1.5 Lipase 223 Procalcitonin 0.13 Serum , Qual Ketones 17.48 H SARS-CoV-2 (PCR) 04/12/21 22:35 WBC RBC Hgb Hct MCV MCH MCHC RDW Neut % (Auto) Lymph % (Auto) [place] % (Auto) Eos % (Auto) Baso % (Auto) Lymph # (Auto) [place] # (Auto) Baso # (Auto) VBG pH VBG pCO2 VBG pO2 VBG HCO3 VBG Total CO2 VBG O2 Saturation VBG Base Excess Sodium Potassium Chloride Carbon Dioxide BUN Creatinine Estimated GFR BUN/Creatinine Ratio Glucose Lactate Calcium Phosphorus Magnesium Total Bilirubin AST ALT Alkaline Phosphatase Total Protein Albumin Globulin Albumin/Globulin Ratio Lipase Procalcitonin Serum , Qual Negative Ketones SARS-CoV-2 (PCR) Assessment & Plan Assessment & Plan narrative: Ms. Sarabjit Jimenes is a 31-year-old female patient with a history significant for poorly controlled type 1 diabetes, frequent admissions for DKA, migraines and irregular menstruation-admitted for recurrent severe diabetic ketoacidosis to the intensive care unit for insulin, and bicarb drip. 1. Diabetic ketoacidosis, with acute metabolic acidosis and hyperglycemia, due to medication noncompliance in diabetes mellitus type 1 insulin-dependent, Stable, acute on chronic, present on admission ?-temp 97.4?, BP 147/97, HR 130, RR 18, O2 saturation 99% on room air. VBG is a pH 7.03, pCO2 15.5, PO2 51, HC03 4, TCO2< 5, O2 sat 69%, BE -27. WBC 11.1, remainder of CBC is WNL. Sodium 136, potassium 5.5, BUN 32, glucose 748, A1c> 14%, magnesium 2.6, phosphorus 8.0, alk-phos 271, ketones 17.48. -Does NOT met SIRS and sepsis criteria in ED & Admit, sofa:2 -differential alcoholic ketoacidosis, starvation ketosis, toxic metabolic encephalopathy, anion gap acidosis, metformin induced lactic acidosis -goal to correct estimated deficits within 24 hours? BS <200, Ph>7.3, HC03>18, Gap<12, phosphorus >2.5, MAP >65. -monitor for heart failure, cerebral edema, or arrhythmias (prolonged QT-warning), hypoxemia, noncardiogenic pulmonary edema, rhabdomyolysis, metabolic myopathy. -patient received 1 bolus normal saline in ED -(BNP & VBG Q4hrs while on drip), Mag & phos Q8Hr, A1C, CK-r/o Rhabdo -Tele ICU participated in patient's admit. Ordered that pt have a diet: fluids progress as tolerated to Carb while on the drip.? -Once Blood sugar 200 or below give Initial Lantus 30units loading dose early on drip to help closing of the klever, and not require bridging towards the end of the drip.? ? -?DKA/insulin drip protocol: LR @100, Once BS 200-150 ,change to D5LR @150cc/HR -Stop drip Once anion gap is closed (GAP <12) -Once pt off drip-restart Lantus 30nits BID in substitutin for patients Tresiba Insulin -Bicarb Drip initiated 8.4% vial/100 mEq, in half-0.45%NS in 1000 cc bag, at a rate of 125-Stop Bicard once PH >7.2-7.3 - Strict input and output monitoring Q shift, blood sugar checks Q 1-2 hours per protocol, continue to monitor blood sugars a.c. and HS once off drip (BS 150-200, use sliding med. dose).? -monitor for potassium, potassium less than <4.0, hold insulin and replace with K rider replacement. ? ?-Daily weight check, neuro check x1 and as needed, monitor for fluid overload. -please avoid Dilaudid for pain management in this patient -patient reports at home :takes Tresiba 50 mg Pm., and 7 units of prandial insulin. 2. leukocytosis, acute, present on admission -unknown etiology -WBC 11.1- likely due to DKA. -UA ordered-rule out UTI 3. Elevated alkaline phosphate, in the setting of DKA, noncompliant type 1 diabetic, acute, present on admission -Alk [id number] -R/O extrahepatic causes (eg, bile duct stones, primary sclerosing cholangitis, malignant biliary obstruction) or intrahepatic causes (eg, PBC, primary sclerosing cholangitis, infiltrative disease). -Alcholol, partial bile duct obstruction, primary biliary cholangitis (PBC), primary sclerosing cholangitis, and certain drugs/ substances. 4.. Gastroparesis, secondary to uncontrolled diabetes chronic, stable, not present on admission. - ordered Zofran IV q.6 as needed for nausea. 5.. Neurogenic bladder secondary to autonomic nerve dysfunction secondary to uncontrolled diabetes, stable, chronic, not present on admission -patient reports no burning, strong urine smell or hematuria in the setting of neurogenic bladder. -urinalysis ordered. 4. Malnutrition, as evidence by BMI of 16.1, acute on chronic, present on admission, secondary to patient's noncompliance in regards to type 1 diabetes insulin management -Patient's weight on 05/12/2020-49.89 kg, 10/18/2020-43 kg, 12/19/20-38.8 kg,? 01/02/2021-40kg. Today 38.55 -dietary consult consideration regarding nutritional supplement ? VTE/DVT prophylaxis:? SCDs, heparin 5000 units b.i.d. Code status:? FULL CODE Surrogate decision maker: nina Gonzales. COVID-19 status: Negative COVID vaccination:? Patient states she was told by her doctor?NOT?to be vaccinated. Disposition:? Estimated length of stay greater than 2 midnights I have utilized all available immediate resources to obtain, update, or review the patient's current medications. I confirmed that the patient's advanced care plan is present, Code status is documented and/or surrogate decision maker is listed in the patient's medical record. Time Spent With Patient Critical Care time: I spent a total of [] minutes of critical care time on this patient's care today; this time is exclusive of procedural time. Scores GCS Burlison coma scale eye opening: Spontaneous [place] coma scale verbal response: Orientated [place] coma scale motor response: Obey commands Alex coma scale total score: 15 Wells' Criteria for PE Clinical signs and symptoms of DVT: No PE is #1 Dx or equally likely: No Heart rate > 100: Yes Immobilization at least 3 days or surg in previous 4 weeks: No History of PE or DVT: No Hemoptysis: No Malignancy w/Treatment within 6 months or palliative: No Wells' PE Score total: 1.5
--- NOTE | 2021-04-13 00:04 | PC.NURSE ---
Insulin continued at 6units/hr upon admission. Normal saline infusion changed to 125ml/hr per request from Dr. Peters. EPIC CUPID ANALYST instructed to begin Bicarb infusion.
[2021-04-13] MEDS: KETOROLAC 30 MG/ML VIAL IV ×3 (00:15→11:31)
[2021-04-13 00:31] LABS: Salicylate < 1.0 mg/dL (<20)
[2021-04-13] MEDS: SODIUM BICARB 8.4% VIAL 100 MEQ in DEXTROSE 5% WATER 1,000 ML 125 MEQ IV (00:31)
[2021-04-13 00:38] VITALS: BMI 18.5
[2021-04-13 00:41] LABS: Ethanol (ETOH) < 10 mg/dL
[2021-04-13 00:55] LABS: Hemoglobin A1C% w Est Avg Glu > 14.0 % (4.0-6.0)
--- NOTE | 2021-04-13 01:18 | PC.ADMIT ---
Addendum entered by Lisette Zarco R.N. 04/13/21 06:57: 0500-Up to BSC with assist, voided 1650ml, UAC sent, HR up to 140 when OOB, quickly down to 110 at rest, denies chest pain or shortness of breath. Feet soaked and cleansed. Original Note: [email or web address] Admission Note: The patient,Sarabjit Jimenes,31 y/o, was given written information regarding hospital policies, unit procedures and contact persons. Patient's smoking status: Never smoker. Vital Signs - 8 hr 04/12/21 22:40 04/12/21 22:52 04/12/21 23:00 Temperature 97.4 F L Pulse Rate 130 H 126 H 122 H Respiratory Rate 18 16 16 Blood Pressure 147/97 H 133/76 Pulse Oximetry 99 100 100 04/12/21 23:30 Temperature Pulse Rate 121 H Respiratory Rate 16 Blood Pressure 128/72 Pulse Oximetry 100 Patient admitted to ICU room 227 at 2345, insulin infusing at 6units/hr with NS at 125ml/hr, to be decreased to 100ml/hr when Na+ Bicarb infusion starts. 30mg IV Toradol given for crying c/o pain all over. ST 120s, other VSS, Blood cultures drawn, ADA diet per LUMBER MOVER provider, denies nausea, given snack. TeleICU consulted, agrees with POC.
--- NOTE | 2021-04-13 01:27 | PM.CN.EICU ---
History of Present Illness Consult details Date Patient Seen: 04/13/21 Chief complaint: high blood sugar :: This patient was seen via real time interactive two-way audiovisual telecommunication. Narrative: 31 y.o. w/ PMHx of T1DM and numerous admissions for DK who presented with hyperglycemia and recurrent DKA. Initial K+ was 55 with serumc HCO3 < 5 and AG of > 20 (due to the serum HCO3). pH was 7.03 so she was started on the DKA protocol, including a HCO3 infusion, by bedside staff. [facility] Medical History DKA (diabetic ketoacidoses) History of pyelonephritis Irregular menstrual cycle Migraine headache Nephrolithiasis Noncompliance w/medication treatment due to intermit use of medication Type 1 diabetes mellitus Surgical History History of ureter stent Hx of cataract surgery Hx of local excision of skin lesion Status post laser lithotripsy of ureteral calculus [place] teeth extracted Family History Father In good health Mother Cardiac disease Social History details: Engaged household members: significant other and family Smoking Status: Never smoker alcohol intake: never Current Medications Current Medications Medications: Home Medications glucose 4 gram chewable tablet 4 gram PO Q15M PRN #30 tab 12/12/18 [Rx Confirmed 03/25/21] glucagon (human recombinant) 1 mg solution for injection (Glucagon Emergency Kit) 1 mg SUBCUT DIRECTED 02/16/19 [History Confirmed 03/25/21] insulin aspart U-100 100 unit/mL (3 mL) subcutaneous pen (Novolog Flexpen U-100 Insulin aspart) 10 unit SUBCUT AC 05/20/20 [History Confirmed 03/25/21] diphenhydramine HCl 50 mg capsule 50 mg PO BEDTIME PRN 09/29/20 [History Confirmed 03/25/21] insulin glargine 100 unit/mL (3 mL) subcutaneous pen (Lantus Solostar U-100 Insulin) 15 unit (0.15 mL) SUBCUT BID 30 Days #9 ml 03/28/21 [Rx] Visit Medications (administered) Generic Name Dose Route Start Last Admin Trade Name Shimon PRN Reason Stop Dose Admin Sodium Chloride 1,000 mls @ 250 mls/hr 04/12/21 22:30 04/13/21 00:02 Normal Saline 0.9% IV Infused CONT BLAISE Infusion INSULIN DRIP PREMIX 100 unit in 100 mls @ 6 mls/hr 04/12/21 23:15 04/13/21 00:03 Myxredlin Drip Premix IV Infused TITRATE BLAISE Titration Protocol Sodium Bicarbonate 100 meq/ 1,100 mls @ 125 mls/hr 04/12/21 23:30 04/13/21 00:31 Dextrose IV 125 mls/hr CONT BLAISE Administration Ketorolac Tromethamine 30 mg 04/12/21 23:37 04/13/21 00:15 Ketorolac 30 Mg/Ml Vial IV 04/17/21 23:42 30 mg Q6HR PRN Administration Pain, Severe (7-10) Exam Vital Signs (past 8 hours): - 04/12/21 22:40 04/12/21 22:52 04/12/21 23:00 Temperature 97.4 F L Pulse Rate 130 H 126 H 122 H Respiratory Rate 18 16 16 Blood Pressure 147/97 H 133/76 Pulse Oximetry 99 100 100 04/12/21 23:30 Temperature Pulse Rate 121 H Respiratory Rate 16 Blood Pressure 128/72 Pulse Oximetry 100 Oxygen Delivery Method Room Air Const General: ill appearing Nutritional Appearance: underweight Resp Effort & Inspection: normal respiratory effort Neuro General: patient alert and patient awake Objective Labs Result Diagrams: 04/12/21 22:35 04/12/21 22:35 Labs: Laboratory Results - last 24 hr 04/12/21 04/12/21 04/12/21 22:28 22:32 22:35 WBC 11.1 H RBC 4.38 Hgb 13.0 Hct 42.8 MCV 97.8 MCH 29.7 MCHC 30.4 RDW 14.6 Neut % (Auto) Not Reportable Lymph % (Auto) Not Reportable [place] % (Auto) Not Reportable Eos % (Auto) Not Reportable Baso % (Auto) Not Reportable Lymph # (Auto) Not Reportable [place] # (Auto) Not Reportable Baso # (Auto) Not Reportable VBG pH 7.03 L* VBG pCO2 15.5 L VBG pO2 51 H VBG HCO3 4 L VBG Total CO2 < 5 L VBG O2 Saturation 69 L VBG Base Excess -27.0 L Sodium Potassium Chloride Carbon Dioxide BUN Creatinine Estimated GFR BUN/Creatinine Ratio Glucose Hemoglobin A1c Lactate Calcium Phosphorus Magnesium Total Bilirubin AST ALT Alkaline Phosphatase Total Protein Albumin Globulin Albumin/Globulin Ratio Lipase Procalcitonin Serum , Qual Salicylates Ethyl Alcohol Ketones SARS-CoV-2 (PCR) Negative 04/12/21 04/12/21 04/12/21 22:35 22:35 22:35 WBC RBC Hgb Hct MCV MCH MCHC RDW Neut % (Auto) Lymph % (Auto) [place] % (Auto) Eos % (Auto) Baso % (Auto) Lymph # (Auto) [place] # (Auto) Baso # (Auto) VBG pH VBG pCO2 VBG pO2 VBG HCO3 VBG Total CO2 VBG O2 Saturation VBG Base Excess Sodium 136 L Potassium 5.5 H Chloride 101 Carbon Dioxide < 5 L* BUN 32 H Creatinine 0.90 Estimated GFR > 60.0 BUN/Creatinine Ratio 35.6 H Glucose 748 H* Hemoglobin A1c Lactate 1.7 Calcium 9.8 Phosphorus 8.0 H Magnesium 2.6 H Total Bilirubin 0.5 AST 25 ALT 27 Alkaline Phosphatase 271 H Total Protein 7.7 Albumin 4.6 Globulin 3.1 Albumin/Globulin Ratio 1.5 Lipase 223 Procalcitonin 0.13 Serum , Qual Salicylates Ethyl Alcohol < 10 Ketones 17.48 H SARS-CoV-2 (PCR) 04/12/21 04/12/21 04/12/21 22:35 22:35 22:35 WBC RBC Hgb Hct MCV MCH MCHC RDW Neut % (Auto) Lymph % (Auto) [place] % (Auto) Eos % (Auto) Baso % (Auto) Lymph # (Auto) [place] # (Auto) Baso # (Auto) VBG pH VBG pCO2 VBG pO2 VBG HCO3 VBG Total CO2 VBG O2 Saturation VBG Base Excess Sodium Potassium Chloride Carbon Dioxide BUN Creatinine Estimated GFR BUN/Creatinine Ratio Glucose Hemoglobin A1c > 14.0 H Lactate Calcium Phosphorus Magnesium Total Bilirubin AST ALT Alkaline Phosphatase Total Protein Albumin Globulin Albumin/Globulin Ratio Lipase Procalcitonin Serum , Qual Negative Salicylates < 1.0 Ethyl Alcohol Ketones SARS-CoV-2 (PCR) Assessment & Plan Assessment and plan (1) Diabetic ketoacidosis associated with type 1 diabetes mellitus: Qualifiers: Diabetes mellitus complication detail: without coma Qualified Code(s): E10.10 - Type 1 diabetes mellitus with ketoacidosis without coma Status: Acute Plan: -Continue DKA protocol (2) Noncompliance w/medication treatment due to intermit use of medication: Status: Acute Plan: -Needs an intervention as I stated during a previous consultation; however, all efforts have been unsuccessful thus far Time Spent With Patient Critical Care time: I spent a total of [] minutes of critical care time on this patient's care today; this time is exclusive of procedural time.
[2021-04-13 02:58] LABS: BUN Creatinine Ratio 40.5 (6-22); Blood Urea Nitrogen 34 mg/dL (7-17); Calcium 9.2 mg/dL (8.4-10.2); Chloride 106 mmol/L (98-107); Estimated Glomerular Filt Rate > 60.0 mL/min (>60); HEMOLYSIS < 15 (0-50); Potassium 4.7 mmol/L (3.4-5.1); Sodium 136 mmol/L (137-145)
[2021-04-13 03:00] LABS: Carbon Dioxide 7 mmol/L (22-32); Glucose 563 mg/dL (70-100)
[2021-04-13 04:00] VITALS: BP 87/54; PULSE 117; RESP 12; O2SAT 96
[2021-04-13 05:39] LABS: Appearance Urine UA CLEAR; Bilirubin Urine UA NEGATIVE (NEGATIVE); Color Urine UA YELLOW; Glucose Urine UA 2+ g/dL (Negative); Ketones Urine UA 3+ (NEGATIVE); Leukocyte Esterase Urine UA NEGATIVE (NEGATIVE); Nitrite Urine UA NEGATIVE (Negative); Occult Blood Urine UA TRACE-LYSED (Negative); Protein Urine UA 1+ (Negative); Specific Gravity Urine UA 1.015 (1.000-1.035); Urobilinogen Urine UA 0.2 E.U./dL (0.2)
[2021-04-13 05:48] LABS: UR Morphine/Opiate cutoff 300 Negative (Negative); Ur Creatinine 20 (Normal); Ur Specific Gravity 1.015 (Normal); Urine Amphetamines Negative (Negative); Urine Barbiturates Negative (Negative); Urine Benzodiazepines Negative (Negative); Urine Cocaine Negative (Negative); Urine MDMA Negative (Negative); Urine Methadone Negative (Negative); Urine Methamphetamines Negative (Negative); Urine Oxycodone Negative (Negative); Urine Phencyclidine Negative (Negative); Urine Tetrahydrocannabinol Negative (Negative); Urine Tricyclic Antidepressant Negative (Negative); Urine pH 5 (Normal)
[2021-04-13 06:29] LABS: Bacteria Urine None Seen; RBC Urine None Seen (0-5/HPF); Squamous Epithelial Cell Urine 0-1 /HPF (0-5/HPF); WBC Urine 0-1/HPF (0-5/HPF)
[2021-04-13 06:30] LABS: Culture Indicated Urine Cult Not Indicated
[2021-04-13 06:49] LABS: Platelet Count 605 X10^3/uL (150-400)
[2021-04-13 06:50] LABS: Neutrophils Absolute Manual 7326 /uL (3000-5900); Total Cells Counted 100
[2021-04-13 06:51] LABS: RBC Morphology Normal Morphology
[2021-04-13 06:58] LABS: HCO3 VBG 16 mmol/L (23-28); Oxygen Saturation VBG 93 % (70-75); PCO2 VBG 31.2 mmHg (45-50); PO2 VBG 72 mmHg (35-45); Total CO2 VBG 16 mmol/L (24-29)
[2021-04-13 06:59] LABS: Add Manual Diff / Slide Review NO; Basophils Absolute Auto 100 /uL (0-100); Basophils Percent Auto 0.6 % (0-2); Eosinophils Absolute Auto 0 /uL (0-450); Eosinophils Percent Auto 0.1 % (2-4); Hematocrit 28.8 % (36-46); Hemoglobin 9.8 g/dL (12.0-16.0); Lymphocytes Absolute Auto 2000 /uL (1100-4500); Lymphocytes Percent Auto 17.4 % (25-40); Mean Corpuscular HGB Conc 34.1 % (30-36); Mean Corpuscular Hemoglobin 30.3 PG (26-34); Mean Corpuscular Volume 88.9 fL (80-100); Monocytes Absolute Auto 1100 /uL (0-900); Monocytes Percent Auto 9.1 % (3-14); Neutrophils Absolute Auto 8500 /uL (1500-7000); Neutrophils Percent Auto 72.8 % (50-75); Platelet Count 420 X10^3/uL (150-400); Red Blood Cell Count 3.24 X10^6/uL (4.0-5.2); Red Cell Distribution Width 14.1 % (11.6-14.8); White Blood Cell Count 11.7 X10^3/uL (4.5-11.0)
[2021-04-13 07:12] LABS: Lactate (Lactic Acid) 1.1 mmol/L (0.7-2.1); Magnesium 1.8 mg/dL (1.6-2.3); Phosphorous 4.2 mg/dL (2.5-4.5)
[2021-04-13 07:14] LABS: Ketones (Beta-Hydroxybutyrate) 3.13 mmol/L (<0.27)
[2021-04-13 07:21] LABS: NT-proBNP (BNP-Adult 18+) 92 pg/mL (<125)
[2021-04-13 07:47] LABS: Blood Urea Nitrogen 39 mg/dL (7-17); Calcium 8.6 mg/dL (8.4-10.2); Carbon Dioxide 15 mmol/L (22-32); Chloride 106 mmol/L (98-107); Estimated Glomerular Filt Rate > 60.0 mL/min (>60); Glucose 318 mg/dL (70-100); HEMOLYSIS < 15 (0-50); Potassium 3.8 mmol/L (3.4-5.1); Sodium 134 mmol/L (137-145)
[2021-04-13 09:40] VITALS: BP 91/55; PULSE 100; RESP 18; TEMP 36.6; O2SAT 98
--- NOTE | 2021-04-13 09:46 | PM.PN.EICU ---
Subjective Subjective :: This patient was seen via real time interactive two-way audiovisual telecommunication. better this am Current Medications Current Medications Medications: Home Medications glucose 4 gram chewable tablet 4 gram PO Q15M PRN #30 tab 12/12/18 [Rx Confirmed 03/25/21] glucagon (human recombinant) 1 mg solution for injection (Glucagon Emergency Kit) 1 mg SUBCUT DIRECTED 02/16/19 [History Confirmed 03/25/21] insulin aspart U-100 100 unit/mL (3 mL) subcutaneous pen (Novolog Flexpen U-100 Insulin aspart) 10 unit SUBCUT AC 05/20/20 [History Confirmed 03/25/21] diphenhydramine HCl 50 mg capsule 50 mg PO BEDTIME PRN 09/29/20 [History Confirmed 03/25/21] insulin glargine 100 unit/mL (3 mL) subcutaneous pen (Lantus Solostar U-100 Insulin) 15 unit (0.15 mL) SUBCUT BID 30 Days #9 ml 03/28/21 [Rx] Visit Medications (administered) Generic Name Dose Route Start Last Admin Trade Name Freq PRN Reason Stop Dose Admin Sodium Chloride 1,000 mls @ 250 mls/hr 04/12/21 22:30 04/13/21 00:02 Normal Saline 0.9% IV Infused CONT BLAISE Infusion INSULIN DRIP PREMIX 100 unit in 100 mls @ 6 mls/hr 04/12/21 23:15 04/13/21 03:10 Myxredlin Drip Premix IV Infused TITRATE BLAISE Titration Protocol Insulin Glargine 30 unit 04/13/21 00:15 04/13/21 01:41 Insulin Glargine 100 Unit/Ml 3ml Pen SUBCUT Not Given BEDTIME BLAISE Ketorolac Tromethamine 30 mg 04/12/21 23:37 04/13/21 05:53 Ketorolac 30 Mg/Ml Vial IV 04/17/21 23:42 30 mg Q6HR PRN Administration Pain, Severe (7-10) Objective Labs Result Diagrams: 04/13/21 06:46 04/13/21 06:46 Labs: Laboratory Results - last 24 hr 04/12/21 04/12/21 04/12/21 22:28 22:32 22:35 WBC 11.1 H RBC 4.38 Hgb 13.0 Hct 42.8 MCV 97.8 MCH 29.7 MCHC 30.4 RDW 14.6 Plt Count 605 H Neut % (Auto) Not Reportable Lymph % (Auto) Not Reportable [place] % (Auto) Not Reportable Eos % (Auto) Not Reportable Baso % (Auto) Not Reportable Neut # (Auto) Lymph # (Auto) Not Reportable [place] # (Auto) Not Reportable Eos # (Auto) Baso # (Auto) Not Reportable Total Counted 100 Seg Neutrophils % 60.0 Band Neutrophils % 6.0 Lymphocytes % (Manual) 22.0 L Monocytes % (Manual) 7.0 Metamyelocytes % 3.0 H Myelocytes % 2.0 H Neutrophils # (Manual) 7326 H RBC Morphology Normal morphology VBG pH 7.03 L* VBG pCO2 15.5 L VBG pO2 51 H VBG HCO3 4 L VBG Total CO2 < 5 L VBG O2 Saturation 69 L VBG Base Excess -27.0 L Sodium Potassium Chloride Carbon Dioxide BUN Creatinine Estimated GFR BUN/Creatinine Ratio Glucose Hemoglobin A1c Lactate Calcium Phosphorus Magnesium Total Bilirubin AST ALT Alkaline Phosphatase NT-Pro-B Natriuret Pep Total Protein Albumin Globulin Albumin/Globulin Ratio Lipase Procalcitonin Serum , Qual Urine Color Urine Appearance Urine pH Ur Specific [place] Urine Protein Urine Glucose (UA) Urine Ketones Urine Occult Blood Urine Nitrate Urine Bilirubin Urine Urobilinogen Ur Leukocyte Esterase Urine RBC Urine WBC Ur Squamous Epith Cells Urine Bacteria Urine Yeast Ur Culture Indicated? Nasal Screen MRSA (PCR) Salicylates U Opiates 300ng/mL cut Ur Oxycodone Screen Urine Methadone Screen Ur Barbiturates Screen U Tricyclic Antidepress Ur Phencyclidine Scrn Ur Amphetamines Screen U Methamphetamines Scrn Ur MDMA Scrn (Ecstasy) U Benzodiazepines Scrn Urine Cocaine Screen U Marijuana (THC) Screen Ethyl Alcohol Ketones SARS-CoV-2 (PCR) Negative 04/12/21 04/12/21 04/12/21 22:35 22:35 22:35 WBC RBC Hgb Hct MCV MCH MCHC RDW Plt Count Neut % (Auto) Lymph % (Auto) [place] % (Auto) Eos % (Auto) Baso % (Auto) Neut # (Auto) Lymph # (Auto) [place] # (Auto) Eos # (Auto) Baso # (Auto) Total Counted Seg Neutrophils % Band Neutrophils % Lymphocytes % (Manual) Monocytes % (Manual) Metamyelocytes % Myelocytes % Neutrophils # (Manual) RBC Morphology VBG pH VBG pCO2 VBG pO2 VBG HCO3 VBG Total CO2 VBG O2 Saturation VBG Base Excess Sodium 136 L Potassium 5.5 H Chloride 101 Carbon Dioxide < 5 L* BUN 32 H Creatinine 0.90 Estimated GFR > 60.0 BUN/Creatinine Ratio 35.6 H Glucose 748 H* Hemoglobin A1c Lactate 1.7 Calcium 9.8 Phosphorus 8.0 H Magnesium 2.6 H Total Bilirubin 0.5 AST 25 ALT 27 Alkaline Phosphatase 271 H NT-Pro-B Natriuret Pep Total Protein 7.7 Albumin 4.6 Globulin 3.1 Albumin/Globulin Ratio 1.5 Lipase 223 Procalcitonin 0.13 Serum , Qual Urine Color Urine Appearance Urine pH Ur Specific [place] Urine Protein Urine Glucose (UA) Urine Ketones Urine Occult Blood Urine Nitrate Urine Bilirubin Urine Urobilinogen Ur Leukocyte Esterase Urine RBC Urine WBC Ur Squamous Epith Cells Urine Bacteria Urine Yeast Ur Culture Indicated? Nasal Screen MRSA (PCR) Salicylates U Opiates 300ng/mL cut Ur Oxycodone Screen Urine Methadone Screen Ur Barbiturates Screen U Tricyclic Antidepress Ur Phencyclidine Scrn Ur Amphetamines Screen U Methamphetamines Scrn Ur MDMA Scrn (Ecstasy) U Benzodiazepines Scrn Urine Cocaine Screen U Marijuana (THC) Screen Ethyl Alcohol < 10 Ketones 17.48 H SARS-CoV-2 (PCR) 04/12/21 04/12/21 04/12/21 22:35 22:35 22:35 WBC RBC Hgb Hct MCV MCH MCHC RDW Plt Count Neut % (Auto) Lymph % (Auto) [place] % (Auto) Eos % (Auto) Baso % (Auto) Neut # (Auto) Lymph # (Auto) [place] # (Auto) Eos # (Auto) Baso # (Auto) Total Counted Seg Neutrophils % Band Neutrophils % Lymphocytes % (Manual) Monocytes % (Manual) Metamyelocytes % Myelocytes % Neutrophils # (Manual) RBC Morphology VBG pH VBG pCO2 VBG pO2 VBG HCO3 VBG Total CO2 VBG O2 Saturation VBG Base Excess Sodium Potassium Chloride Carbon Dioxide BUN Creatinine Estimated GFR BUN/Creatinine Ratio Glucose Hemoglobin A1c > 14.0 H Lactate Calcium Phosphorus Magnesium Total Bilirubin AST ALT Alkaline Phosphatase NT-Pro-B Natriuret Pep Total Protein Albumin Globulin Albumin/Globulin Ratio Lipase Procalcitonin Serum , Qual Negative Urine Color Urine Appearance Urine pH Ur Specific [place] Urine Protein Urine Glucose (UA) Urine Ketones Urine Occult Blood Urine Nitrate Urine Bilirubin Urine Urobilinogen Ur Leukocyte Esterase Urine RBC Urine WBC Ur Squamous Epith Cells Urine Bacteria Urine Yeast Ur Culture Indicated? Nasal Screen MRSA (PCR) Salicylates < 1.0 U Opiates 300ng/mL cut Ur Oxycodone Screen Urine Methadone Screen Ur Barbiturates Screen U Tricyclic Antidepress Ur Phencyclidine Scrn Ur Amphetamines Screen U Methamphetamines Scrn Ur MDMA Scrn (Ecstasy) U Benzodiazepines Scrn Urine Cocaine Screen U Marijuana (THC) Screen Ethyl Alcohol Ketones SARS-CoV-2 (PCR) 04/13/21 04/13/21 04/13/21 00:01 02:35 05:20 WBC RBC Hgb Hct MCV MCH MCHC RDW Plt Count Neut % (Auto) Lymph % (Auto) [place] % (Auto) Eos % (Auto) Baso % (Auto) Neut # (Auto) Lymph # (Auto) [place] # (Auto) Eos # (Auto) Baso # (Auto) Total Counted Seg Neutrophils % Band Neutrophils % Lymphocytes % (Manual) Monocytes % (Manual) Metamyelocytes % Myelocytes % Neutrophils # (Manual) RBC Morphology VBG pH VBG pCO2 VBG pO2 VBG HCO3 VBG Total CO2 VBG O2 Saturation VBG Base Excess Sodium 136 L Potassium 4.7 Chloride 106 Carbon Dioxide 7 L* BUN 34 H Creatinine 0.84 Estimated GFR > 60.0 BUN/Creatinine Ratio 40.5 H Glucose 563 H* Hemoglobin A1c Lactate Calcium 9.2 Phosphorus Magnesium Total Bilirubin AST ALT Alkaline Phosphatase NT-Pro-B Natriuret Pep Total Protein Albumin Globulin Albumin/Globulin Ratio Lipase Procalcitonin Serum , Qual Urine Color Yellow Urine Appearance Clear Urine pH 5.0 Ur Specific [place] 1.015 Urine Protein 1+ H Urine Glucose (UA) 2+ H Urine Ketones 3+ H Urine Occult Blood Trace-lysed Urine Nitrate Negative Urine Bilirubin Negative Urine Urobilinogen 0.2 Ur Leukocyte Esterase Negative Urine RBC None seen Urine WBC 0-1/hpf Ur Squamous Epith Cells 0-1 /hpf Urine Bacteria None seen Urine Yeast 1-5/hpf H Ur Culture Indicated? Cult not indicated Nasal Screen MRSA (PCR) Negative for mrsa Salicylates U Opiates 300ng/mL cut Ur Oxycodone Screen Urine Methadone Screen Ur Barbiturates Screen U Tricyclic Antidepress Ur Phencyclidine Scrn Ur Amphetamines Screen U Methamphetamines Scrn Ur MDMA Scrn (Ecstasy) U Benzodiazepines Scrn Urine Cocaine Screen U Marijuana (THC) Screen Ethyl Alcohol Ketones SARS-CoV-2 (PCR) 04/13/21 04/13/21 04/13/21 05:20 06:39 06:46 WBC 11.7 H RBC 3.24 L Hgb 9.8 L Hct 28.8 L MCV 88.9 D MCH 30.3 MCHC 34.1 D RDW 14.1 Plt Count 420 H Neut % (Auto) 72.8 Lymph % (Auto) 17.4 L [place] % (Auto) 9.1 Eos % (Auto) 0.1 L Baso % (Auto) 0.6 Neut # (Auto) 8500 H Lymph # (Auto) 2000 [place] # (Auto) 1100 H Eos # (Auto) 0 Baso # (Auto) 100 Total Counted Seg Neutrophils % Band Neutrophils % Lymphocytes % (Manual) Monocytes % (Manual) Metamyelocytes % Myelocytes % Neutrophils # (Manual) RBC Morphology VBG pH 7.30 L VBG pCO2 31.2 L VBG pO2 72 H VBG HCO3 16 L VBG Total CO2 16 L VBG O2 Saturation 93 H VBG Base Excess -11.0 L Sodium Potassium Chloride Carbon Dioxide BUN Creatinine Estimated GFR BUN/Creatinine Ratio Glucose Hemoglobin A1c Lactate Calcium Phosphorus Magnesium Total Bilirubin AST ALT Alkaline Phosphatase NT-Pro-B Natriuret Pep Total Protein Albumin Globulin Albumin/Globulin Ratio Lipase Procalcitonin Serum , Qual Urine Color Urine Appearance Urine pH Ur Specific [place] Urine Protein Urine Glucose (UA) Urine Ketones Urine Occult Blood Urine Nitrate Urine Bilirubin Urine Urobilinogen Ur Leukocyte Esterase Urine RBC Urine WBC Ur Squamous Epith Cells Urine Bacteria Urine Yeast Ur Culture Indicated? Nasal Screen MRSA (PCR) Salicylates U Opiates 300ng/mL cut Negative Ur Oxycodone Screen Negative Urine Methadone Screen Negative Ur Barbiturates Screen Negative U Tricyclic Antidepress Negative Ur Phencyclidine Scrn Negative Ur Amphetamines Screen Negative U Methamphetamines Scrn Negative Ur MDMA Scrn (Ecstasy) Negative U Benzodiazepines Scrn Negative Urine Cocaine Screen Negative U Marijuana (THC) Screen Negative Ethyl Alcohol Ketones SARS-CoV-2 (PCR) 04/13/21 04/13/21 04/13/21 06:46 06:46 06:46 WBC RBC Hgb Hct MCV MCH MCHC RDW Plt Count Neut % (Auto) Lymph % (Auto) [place] % (Auto) Eos % (Auto) Baso % (Auto) Neut # (Auto) Lymph # (Auto) [place] # (Auto) Eos # (Auto) Baso # (Auto) Total Counted Seg Neutrophils % Band Neutrophils % Lymphocytes % (Manual) Monocytes % (Manual) Metamyelocytes % Myelocytes % Neutrophils # (Manual) RBC Morphology VBG pH VBG pCO2 VBG pO2 VBG HCO3 VBG Total CO2 VBG O2 Saturation VBG Base Excess Sodium Potassium Chloride Carbon Dioxide BUN Creatinine Estimated GFR BUN/Creatinine Ratio Glucose Hemoglobin A1c Lactate 1.1 Calcium Phosphorus 4.2 D Magnesium 1.8 Total Bilirubin AST ALT Alkaline Phosphatase NT-Pro-B Natriuret Pep 92 Total Protein Albumin Globulin Albumin/Globulin Ratio Lipase Procalcitonin Serum , Qual Urine Color Urine Appearance Urine pH Ur Specific [place] Urine Protein Urine Glucose (UA) Urine Ketones Urine Occult Blood Urine Nitrate Urine Bilirubin Urine Urobilinogen Ur Leukocyte Esterase Urine RBC Urine WBC Ur Squamous Epith Cells Urine Bacteria Urine Yeast Ur Culture Indicated? Nasal Screen MRSA (PCR) Salicylates U Opiates 300ng/mL cut Ur Oxycodone Screen Urine Methadone Screen Ur Barbiturates Screen U Tricyclic Antidepress Ur Phencyclidine Scrn Ur Amphetamines Screen U Methamphetamines Scrn Ur MDMA Scrn (Ecstasy) U Benzodiazepines Scrn Urine Cocaine Screen U Marijuana (THC) Screen Ethyl Alcohol Ketones 3.13 H SARS-CoV-2 (PCR) 04/13/21 06:46 WBC RBC Hgb Hct MCV MCH MCHC RDW Plt Count Neut % (Auto) Lymph % (Auto) [place] % (Auto) Eos % (Auto) Baso % (Auto) Neut # (Auto) Lymph # (Auto) [place] # (Auto) Eos # (Auto) Baso # (Auto) Total Counted Seg Neutrophils % Band Neutrophils % Lymphocytes % (Manual) Monocytes % (Manual) Metamyelocytes % Myelocytes % Neutrophils # (Manual) RBC Morphology VBG pH VBG pCO2 VBG pO2 VBG HCO3 VBG Total CO2 VBG O2 Saturation VBG Base Excess Sodium 134 L Potassium 3.8 Chloride 106 Carbon Dioxide 15 L BUN 39 H Creatinine 0.78 Estimated GFR > 60.0 BUN/Creatinine Ratio 50.0 H Glucose 318 H D Hemoglobin A1c Lactate Calcium 8.6 Phosphorus Magnesium Total Bilirubin AST ALT Alkaline Phosphatase NT-Pro-B Natriuret Pep Total Protein Albumin Globulin Albumin/Globulin Ratio Lipase Procalcitonin Serum , Qual Urine Color Urine Appearance Urine pH Ur Specific [place] Urine Protein Urine Glucose (UA) Urine Ketones Urine Occult Blood Urine Nitrate Urine Bilirubin Urine Urobilinogen Ur Leukocyte Esterase Urine RBC Urine WBC Ur Squamous Epith Cells Urine Bacteria Urine Yeast Ur Culture Indicated? Nasal Screen MRSA (PCR) Salicylates U Opiates 300ng/mL cut Ur Oxycodone Screen Urine Methadone Screen Ur Barbiturates Screen U Tricyclic Antidepress Ur Phencyclidine Scrn Ur Amphetamines Screen U Methamphetamines Scrn Ur MDMA Scrn (Ecstasy) U Benzodiazepines Scrn Urine Cocaine Screen U Marijuana (THC) Screen Ethyl Alcohol Ketones SARS-CoV-2 (PCR) Exam Vital Signs (past 8 hours): - 04/13/21 04:00 04/13/21 09:40 Temperature 97.8 F Pulse Rate 117 H 100 H Respiratory Rate 12 18 Blood Pressure 87/54 L 91/55 L Pulse Oximetry 96 98 Oxygen Delivery Method Room Air Oxygen Flow Rate 0 Quality TeleICU VTE Deep Vein Thrombosis/Pulmonary Embolism Present on Admission: No Assessment & Plan Assessment & Plan narrative: 31 year old female admitted with DKA multiple recent admission for similiar diagnosis afebrile, mildy tachycardic plan -dka protocol -would suggest 2 bmp where ag closed and bicarb above 18 -establish outputatient dm management -pleaser recall teleICU if condition changes Time Spent With Patient Critical Care time: I spent a total of [] minutes of critical care time on this patient's care today; this time is exclusive of procedural time.
[2021-04-13] MEDS: INSULIN GLARGINE 100 UNIT/ML 3ML PEN 25 UNIT SUBCUT (11:29)
[2021-04-13] MEDS: ACETAMINOPHEN 325 MG TABLET 650 MG PO (11:31)
--- NOTE | 2021-04-13 11:36 | CM.DANOTE ---
Patient is a 31 year old female who admitted yesterday evening to the care of the hospitalist team. PCP: Dr. Limon. Payer: confirmed: [employer]/Medicaid. Patient came to the hospital via private vehicle secondary to having symptoms of DKA. According to notes, patient confirms that she is taking her medications as directed. She had been feeling poorly, no noted vomiting. Patient was noted to have DKA, with acute metabolic acidosis and hyperglycemia. Patient is a brittle diabetic, has had multiple admissions for this. She has been working with outpatient black mill operator as well. Patient is alert and oriented, tearful at times. Patient resides here in [place] with her significant other, Reggie. Patient's mother, Argelia, is involved with her care, also lives in [place]. She has been taking her to outpatient appointments with black mill operator. Patient has been given resources before, such as having her follow up with [facility] ram[facility], as well as acute paper machine backtender program. She most likely will see black mill operator here at the hospital. P: DCP to continue to follow for any resources needed. Patient most likely will go home when she is deemed medically stable. Anni Rudd RN/Home Care Provider Discharge Planning/Care Management CM Discharge Assessment Start: 04/13/21 11:34 Freq: Status: Active Protocol: Document 04/13/21 11:35 (Rec: 04/13/21 11:35 [id number]) Discharge Planning Assessment Assigned Bushel Worker Anni Rudd RN/Home Care Provider Advance Directives? No Advance Directives on File No History Provided By Patient,Medical Record Prior Living Arrangements House Household Members significant other,family Type of transporation used prior to Relies on Others admit Independent with ADL's Yes Is patient alert and oriented? Yes Needs Assistance With Managing Medications,Home Chores / Shopping Caregiver for Another No Comment PCP is Dr. Limon at [facility] ph# [phone]. Barrier is non- compliance with her blood sugars which cause readmissions here at the hospital. Discharge Plan Home Transportation Arrangement Patient reports that her fiance/Reggie will provide transport home. Referrals Initiated Other Additional Comment Pt has been going to see black mill operator on an outpatient basis. Review Status In Process Next Review Type Continued Stay Review
--- NOTE | 2021-04-13 13:04 | DIET.CONS2 ---
Dietary Inpatient Consultation Note Admission Date: 04/12/2021 23:32 Pt working with OP DM educator here at . Pt desires Dexcom CGM, there have been insurance and pharmacy barriers over past 4w, however, CGM being shipped to pts house this week. DM educator hesitant to request medication adjustment/BG correction plan until BG data available for review as pt does not bring to appointments to date and reports lows in addition to chronic highs. However, DM educator building positive rapport with pt, important barrier to overcome as pt has has disjointed care for the past 10+y by attending resident clinic at [facility] and not having endo. Diet: 04/12/21 Breakfast Carbohydrate Consistent Diet Diet Modifications: Carbohydrate level: Small (2 CHO) Bedtime snack: Yes Nutrition Percent Meal Consumed 100% 04/13/21 09:00 Nutrition Dx: Severe Acute on Chronic Protein Calorie Malnutrition r/t unoptimal diabetic control aeb pt with 14 DKA hospitalizations in 2020, A1c chronically >14, BMI 18.5, pt not menstruating, admit BG >700, urine ketones 18, anion gap 20. Monitoring/Evaluation: Pt to have f/u OP DM appt at to install and learn CGM in next week or two. Electronically Signed by: Ellen Kumari 04/13/21 13:04 Clinical [address] [id number]
[2021-04-13 14:41] LABS: BUN Creatinine Ratio 54.5 (6-22); Blood Urea Nitrogen 42 mg/dL (7-17); Calcium 8.5 mg/dL (8.4-10.2); Carbon Dioxide 20 mmol/L (22-32); Chloride 103 mmol/L (98-107); Estimated Glomerular Filt Rate > 60.0 mL/min (>60); Glucose 271 mg/dL (70-100); HEMOLYSIS 19 (0-50); Potassium 4.8 mmol/L (3.4-5.1); Sodium 130 mmol/L (137-145)
--- NOTE | 2021-04-13 15:18 | P.DS_ITS ---
History of Present Illness History of Present Illness Date Patient Seen: 04/13/21 Chief complaint: high blood sugar Narrative: History of Present Illness History of Present Illness Date Patient Seen:?04/12/21 Time Patient Seen:?23:50 Narrative: ?Ms. Sarabjit Jimenes is a 31-year-old female patient with a history significant for poorly controlled type 1 diabetes, frequent admissions for DKA (Patient has had a total of 14 admits in 2020 with 4 stand-alone ER visits), migraines and irregular menstruation?who presents to the ED in DKA.? Presents today complaining that she is dehydrated and is again in DKA.? She states that she has been taking her insulin, she has not been sick recently she has been eating and drinking appropriately she has no complaints of diarrhea, dysuria, flank pain.? There are no skin complaints or findings.? She does not have any vomiting, diarrhea, neurologic complaints, or headache.? Main complaint is that she is very dry, body aches, and thirsty.? She denies chest pain, shortness of breath, cough, nasal drainage, sore throat, headache, changes in vision, new or unusual weakness, nausea, abdominal pain, vomiting at this time, recent illness, injury, or trauma. This evening she started to feel very poorly. This morning she stated that she felt okay.? Has generalized pain and body aches all over. Patient's vitals upon admit temp 97.4?, BP 147/97, HR 130, RR 18, O2 saturation 99% on room air.? VBG is a pH 7.03, pCO2 15.5, PO2 51, HC03 4, TCO2< 5, O2 sat 69%, BE -27.? WBC 11.1, remainder of CBC is WNL.? Sodium 136, potassium 5.5, BUN 32, glucose 748, A1c> 14%, magnesium 2.6, phosphorus 8.0, alk-phos 271, lipase WNL, lactate WNL, procalcitonin-WNL, hCG negative, MRSA negative, salicylates negative, alcohol negative, ketones 17.48, COVID negative, does not meet SIRS/sepsis criteria.? Patient admitted to ICU for DKA. Discharge Providers Provider Date of admission: 04/12/21 23:32 Discharge Date: 04/13/21 Primary care physician: Maria Ines Limon DO Consults: 04/12/21 23:48 Consult to Tele-postmaster relief Routine Comment: Consulting Provider: [facility] [employer] Reason for consultation: [employer] Specialist services Has provider been notified: No Discharge provider: Roya Jhaveri DO Summary Hospital Course Discharge Diagnosis: DKA; RESOLVED MEDICAL NON COMPLIANCE REACTIVE LEUKOCYTOSIS SEVERE INTRAVASCULAR FLUID DEPLETION ANEMIA OF CHRONIC DISEASE REACTIVE THROMBOCYTOSIS POSSIBLE MODERATE PROTEIN DEFICIENCY MALNUTRITION Hospital Course: THIS IS A 31 YEAR OLD FEMALE WITH MULTIPLE ADMISSIONS TO THE HOSPITAL WITH DKA. PATIENT WAS ADMITTED OVERNIGHT WITH SIGNIFICANT ACIDOSIS AND STARTED ON HEPARIN DRIP AND SENT TO THE ICU. THE REASON OF HER DKA IS UNCLEAR. SHE REPORTS THAT SHE TAKES HER MEDICATION PRESCRIBED APART FROM THE DKA, NO SIGNIFICANT FINDINGS ON WORKUP IN THE ER. SHE DOES HAVE SOME MILD LEUKOCYTOSIS AND THROMBOCYTOSIS BUT DOES ARE LIKELY ACUTE REACTANT HER ACIDOSIS HAS RESOLVED AT THIS TIME. SHE WILL BE DISCHARGED TO HOME HOWEVER I WILL INCREASE HER LANTUS FROM DAILY TO B.I.D.AND PRESCRIBED NOVOLOG TO BE USED INSULIN SLIDING SCALE ADDITIONAL MANAGEMENT PER OUTPATIENT PROVIDERS Status at Discharge Cognitive/behavioral status at discharge: oriented Functional status at discharge: independent ambulation Overall status at discharge: patient is back to baseline Time Spent with Patient Time spent: Greater than 30 minutes Exam Vital Signs (past 8 hours): - 04/13/21 09:40 Temperature 97.8 F Pulse Rate 100 H Respiratory Rate 18 Blood Pressure 91/55 L Pulse Oximetry 98 Oxygen Delivery Method Room Air Oxygen Flow Rate 0 Narrative Exam Narrative: NO ACUTE DISTRESS. PATIENT IS ALERT ORIENTED X3. THIN. APPEARS OLDER THAN STATED AGE VITAL SIGNS STABLE HEAD ATRAUMATIC NORMOCEPHALIC NECK : SUPPLE WITHOUT ADENOPATHY NO CAROTID BRUITS EYE: EOMI, PERRLA, NORMAL CONJUNCTIVA; NO JAUNDICE CHEST: REGULAR RATE. NO RUBS. PMI IS NON DISPLACED. NO MURMURS; NORMAL S1- S2 PULMONARY: DECREASED BS OVER THE BASES. MILD BIBASILAR CRACKLES NOTED; NO INCREASED DULLNESS TO PERCUSSION ABDOMEN: SOFT. NONTENDER. NONDISTENDED. BOWEL SOUNDS ARE PRESENT IN ALL 4 QUADRANTS. NO MASS. EXTREMITIES: NO EDEMA.. NO CYANOSIS CLUBBING NOTED. NEURO: CRANIAL NERVES 2-12 GROSSLY INTACT. NO FOCAL NEUROLOGICAL DEFICIT NOTED. MSK: NORMAL RANGE OF MOTION FOR AGE. NO JOINT EFFUSION. SKIN: NORMAL FOR ETHNICITY; NO ECCHYMOSIS. NO LESION. GOOD TURGOR.; NO RASHES : NORMAL EXTERNAL GENITALIA. PSYCH : APPROPRIATE MOOD AND AFFECT. ALERT AWAKE ORIENTED X3 Objective Labs Result Diagrams: 04/13/21 06:46 04/13/21 14:03 Labs: Laboratory Results - last 24 hr 04/12/21 04/12/21 04/12/21 22:28 22:32 22:35 WBC 11.1 H RBC 4.38 Hgb 13.0 Hct 42.8 MCV 97.8 MCH 29.7 MCHC 30.4 RDW 14.6 Plt Count 605 H Neut % (Auto) Not Reportable Lymph % (Auto) Not Reportable [place] % (Auto) Not Reportable Eos % (Auto) Not Reportable Baso % (Auto) Not Reportable Neut # (Auto) Lymph # (Auto) Not Reportable [place] # (Auto) Not Reportable Eos # (Auto) Baso # (Auto) Not Reportable Total Counted 100 Seg Neutrophils % 60.0 Band Neutrophils % 6.0 Lymphocytes % (Manual) 22.0 L Monocytes % (Manual) 7.0 Metamyelocytes % 3.0 H Myelocytes % 2.0 H Neutrophils # (Manual) 7326 H RBC Morphology Normal morphology VBG pH 7.03 L* VBG pCO2 15.5 L VBG pO2 51 H VBG HCO3 4 L VBG Total CO2 < 5 L VBG O2 Saturation 69 L VBG Base Excess -27.0 L Sodium Potassium Chloride Carbon Dioxide BUN Creatinine Estimated GFR BUN/Creatinine Ratio Glucose Hemoglobin A1c Lactate Calcium Phosphorus Magnesium Total Bilirubin AST ALT Alkaline Phosphatase NT-Pro-B Natriuret Pep Total Protein Albumin Globulin Albumin/Globulin Ratio Lipase Procalcitonin Serum , Qual Urine Color Urine Appearance Urine pH Ur Specific [place] Urine Protein Urine Glucose (UA) Urine Ketones Urine Occult Blood Urine Nitrate Urine Bilirubin Urine Urobilinogen Ur Leukocyte Esterase Urine RBC Urine WBC Ur Squamous Epith Cells Urine Bacteria Urine Yeast Ur Culture Indicated? Nasal Screen MRSA (PCR) Salicylates U Opiates 300ng/mL cut Ur Oxycodone Screen Urine Methadone Screen Ur Barbiturates Screen U Tricyclic Antidepress Ur Phencyclidine Scrn Ur Amphetamines Screen U Methamphetamines Scrn Ur MDMA Scrn (Ecstasy) U Benzodiazepines Scrn Urine Cocaine Screen U Marijuana (THC) Screen Ethyl Alcohol Ketones SARS-CoV-2 (PCR) Negative 04/12/21 04/12/21 04/12/21 22:35 22:35 22:35 WBC RBC Hgb Hct MCV MCH MCHC RDW Plt Count Neut % (Auto) Lymph % (Auto) [place] % (Auto) Eos % (Auto) Baso % (Auto) Neut # (Auto) Lymph # (Auto) [place] # (Auto) Eos # (Auto) Baso # (Auto) Total Counted Seg Neutrophils % Band Neutrophils % Lymphocytes % (Manual) Monocytes % (Manual) Metamyelocytes % Myelocytes % Neutrophils # (Manual) RBC Morphology VBG pH VBG pCO2 VBG pO2 VBG HCO3 VBG Total CO2 VBG O2 Saturation VBG Base Excess Sodium 136 L Potassium 5.5 H Chloride 101 Carbon Dioxide < 5 L* BUN 32 H Creatinine 0.90 Estimated GFR > 60.0 BUN/Creatinine Ratio 35.6 H Glucose 748 H* Hemoglobin A1c Lactate 1.7 Calcium 9.8 Phosphorus 8.0 H Magnesium 2.6 H Total Bilirubin 0.5 AST 25 ALT 27 Alkaline Phosphatase 271 H NT-Pro-B Natriuret Pep Total Protein 7.7 Albumin 4.6 Globulin 3.1 Albumin/Globulin Ratio 1.5 Lipase 223 Procalcitonin 0.13 Serum , Qual Urine Color Urine Appearance Urine pH Ur Specific [place] Urine Protein Urine Glucose (UA) Urine Ketones Urine Occult Blood Urine Nitrate Urine Bilirubin Urine Urobilinogen Ur Leukocyte Esterase Urine RBC Urine WBC Ur Squamous Epith Cells Urine Bacteria Urine Yeast Ur Culture Indicated? Nasal Screen MRSA (PCR) Salicylates U Opiates 300ng/mL cut Ur Oxycodone Screen Urine Methadone Screen Ur Barbiturates Screen U Tricyclic Antidepress Ur Phencyclidine Scrn Ur Amphetamines Screen U Methamphetamines Scrn Ur MDMA Scrn (Ecstasy) U Benzodiazepines Scrn Urine Cocaine Screen U Marijuana (THC) Screen Ethyl Alcohol < 10 Ketones 17.48 H SARS-CoV-2 (PCR) 04/12/21 04/12/21 04/12/21 22:35 22:35 22:35 WBC RBC Hgb Hct MCV MCH MCHC RDW Plt Count Neut % (Auto) Lymph % (Auto) [place] % (Auto) Eos % (Auto) Baso % (Auto) Neut # (Auto) Lymph # (Auto) [place] # (Auto) Eos # (Auto) Baso # (Auto) Total Counted Seg Neutrophils % Band Neutrophils % Lymphocytes % (Manual) Monocytes % (Manual) Metamyelocytes % Myelocytes % Neutrophils # (Manual) RBC Morphology VBG pH VBG pCO2 VBG pO2 VBG HCO3 VBG Total CO2 VBG O2 Saturation VBG Base Excess Sodium Potassium Chloride Carbon Dioxide BUN Creatinine Estimated GFR BUN/Creatinine Ratio Glucose Hemoglobin A1c > 14.0 H Lactate Calcium Phosphorus Magnesium Total Bilirubin AST ALT Alkaline Phosphatase NT-Pro-B Natriuret Pep Total Protein Albumin Globulin Albumin/Globulin Ratio Lipase Procalcitonin Serum , Qual Negative Urine Color Urine Appearance Urine pH Ur Specific [place] Urine Protein Urine Glucose (UA) Urine Ketones Urine Occult Blood Urine Nitrate Urine Bilirubin Urine Urobilinogen Ur Leukocyte Esterase Urine RBC Urine WBC Ur Squamous Epith Cells Urine Bacteria Urine Yeast Ur Culture Indicated? Nasal Screen MRSA (PCR) Salicylates < 1.0 U Opiates 300ng/mL cut Ur Oxycodone Screen Urine Methadone Screen Ur Barbiturates Screen U Tricyclic Antidepress Ur Phencyclidine Scrn Ur Amphetamines Screen U Methamphetamines Scrn Ur MDMA Scrn (Ecstasy) U Benzodiazepines Scrn Urine Cocaine Screen U Marijuana (THC) Screen Ethyl Alcohol Ketones SARS-CoV-2 (PCR) 04/13/21 04/13/21 04/13/21 00:01 02:35 05:20 WBC RBC Hgb Hct MCV MCH MCHC RDW Plt Count Neut % (Auto) Lymph % (Auto) [place] % (Auto) Eos % (Auto) Baso % (Auto) Neut # (Auto) Lymph # (Auto) [place] # (Auto) Eos # (Auto) Baso # (Auto) Total Counted Seg Neutrophils % Band Neutrophils % Lymphocytes % (Manual) Monocytes % (Manual) Metamyelocytes % Myelocytes % Neutrophils # (Manual) RBC Morphology VBG pH VBG pCO2 VBG pO2 VBG HCO3 VBG Total CO2 VBG O2 Saturation VBG Base Excess Sodium 136 L Potassium 4.7 Chloride 106 Carbon Dioxide 7 L* BUN 34 H Creatinine 0.84 Estimated GFR > 60.0 BUN/Creatinine Ratio 40.5 H Glucose 563 H* Hemoglobin A1c Lactate Calcium 9.2 Phosphorus Magnesium Total Bilirubin AST ALT Alkaline Phosphatase NT-Pro-B Natriuret Pep Total Protein Albumin Globulin Albumin/Globulin Ratio Lipase Procalcitonin Serum , Qual Urine Color Yellow Urine Appearance Clear Urine pH 5.0 Ur Specific [place] 1.015 Urine Protein 1+ H Urine Glucose (UA) 2+ H Urine Ketones 3+ H Urine Occult Blood Trace-lysed Urine Nitrate Negative Urine Bilirubin Negative Urine Urobilinogen 0.2 Ur Leukocyte Esterase Negative Urine RBC None seen Urine WBC 0-1/hpf Ur Squamous Epith Cells 0-1 /hpf Urine Bacteria None seen Urine Yeast 1-5/hpf H Ur Culture Indicated? Cult not indicated Nasal Screen MRSA (PCR) Negative for mrsa Salicylates U Opiates 300ng/mL cut Ur Oxycodone Screen Urine Methadone Screen Ur Barbiturates Screen U Tricyclic Antidepress Ur Phencyclidine Scrn Ur Amphetamines Screen U Methamphetamines Scrn Ur MDMA Scrn (Ecstasy) U Benzodiazepines Scrn Urine Cocaine Screen U Marijuana (THC) Screen Ethyl Alcohol Ketones SARS-CoV-2 (PCR) 04/13/21 04/13/21 04/13/21 05:20 06:39 06:46 WBC 11.7 H RBC 3.24 L Hgb 9.8 L Hct 28.8 L MCV 88.9 D MCH 30.3 MCHC 34.1 D RDW 14.1 Plt Count 420 H Neut % (Auto) 72.8 Lymph % (Auto) 17.4 L [place] % (Auto) 9.1 Eos % (Auto) 0.1 L Baso % (Auto) 0.6 Neut # (Auto) 8500 H Lymph # (Auto) 2000 [place] # (Auto) 1100 H Eos # (Auto) 0 Baso # (Auto) 100 Total Counted Seg Neutrophils % Band Neutrophils % Lymphocytes % (Manual) Monocytes % (Manual) Metamyelocytes % Myelocytes % Neutrophils # (Manual) RBC Morphology VBG pH 7.30 L VBG pCO2 31.2 L VBG pO2 72 H VBG HCO3 16 L VBG Total CO2 16 L VBG O2 Saturation 93 H VBG Base Excess -11.0 L Sodium Potassium Chloride Carbon Dioxide BUN Creatinine Estimated GFR BUN/Creatinine Ratio Glucose Hemoglobin A1c Lactate Calcium Phosphorus Magnesium Total Bilirubin AST ALT Alkaline Phosphatase NT-Pro-B Natriuret Pep Total Protein Albumin Globulin Albumin/Globulin Ratio Lipase Procalcitonin Serum , Qual Urine Color Urine Appearance Urine pH Ur Specific [place] Urine Protein Urine Glucose (UA) Urine Ketones Urine Occult Blood Urine Nitrate Urine Bilirubin Urine Urobilinogen Ur Leukocyte Esterase Urine RBC Urine WBC Ur Squamous Epith Cells Urine Bacteria Urine Yeast Ur Culture Indicated? Nasal Screen MRSA (PCR) Salicylates U Opiates 300ng/mL cut Negative Ur Oxycodone Screen Negative Urine Methadone Screen Negative Ur Barbiturates Screen Negative U Tricyclic Antidepress Negative Ur Phencyclidine Scrn Negative Ur Amphetamines Screen Negative U Methamphetamines Scrn Negative Ur MDMA Scrn (Ecstasy) Negative U Benzodiazepines Scrn Negative Urine Cocaine Screen Negative U Marijuana (THC) Screen Negative Ethyl Alcohol Ketones SARS-CoV-2 (PCR) 04/13/21 04/13/21 04/13/21 06:46 06:46 06:46 WBC RBC Hgb Hct MCV MCH MCHC RDW Plt Count Neut % (Auto) Lymph % (Auto) [place] % (Auto) Eos % (Auto) Baso % (Auto) Neut # (Auto) Lymph # (Auto) [place] # (Auto) Eos # (Auto) Baso # (Auto) Total Counted Seg Neutrophils % Band Neutrophils % Lymphocytes % (Manual) Monocytes % (Manual) Metamyelocytes % Myelocytes % Neutrophils # (Manual) RBC Morphology VBG pH VBG pCO2 VBG pO2 VBG HCO3 VBG Total CO2 VBG O2 Saturation VBG Base Excess Sodium Potassium Chloride Carbon Dioxide BUN Creatinine Estimated GFR BUN/Creatinine Ratio Glucose Hemoglobin A1c Lactate 1.1 Calcium Phosphorus 4.2 D Magnesium 1.8 Total Bilirubin AST ALT Alkaline Phosphatase NT-Pro-B Natriuret Pep 92 Total Protein Albumin Globulin Albumin/Globulin Ratio Lipase Procalcitonin Serum , Qual Urine Color Urine Appearance Urine pH Ur Specific [place] Urine Protein Urine Glucose (UA) Urine Ketones Urine Occult Blood Urine Nitrate Urine Bilirubin Urine Urobilinogen Ur Leukocyte Esterase Urine RBC Urine WBC Ur Squamous Epith Cells Urine Bacteria Urine Yeast Ur Culture Indicated? Nasal Screen MRSA (PCR) Salicylates U Opiates 300ng/mL cut Ur Oxycodone Screen Urine Methadone Screen Ur Barbiturates Screen U Tricyclic Antidepress Ur Phencyclidine Scrn Ur Amphetamines Screen U Methamphetamines Scrn Ur MDMA Scrn (Ecstasy) U Benzodiazepines Scrn Urine Cocaine Screen U Marijuana (THC) Screen Ethyl Alcohol Ketones 3.13 H SARS-CoV-2 (PCR) 04/13/21 04/13/21 06:46 14:03 WBC RBC Hgb Hct MCV MCH MCHC RDW Plt Count Neut % (Auto) Lymph % (Auto) [place] % (Auto) Eos % (Auto) Baso % (Auto) Neut # (Auto) Lymph # (Auto) [place] # (Auto) Eos # (Auto) Baso # (Auto) Total Counted Seg Neutrophils % Band Neutrophils % Lymphocytes % (Manual) Monocytes % (Manual) Metamyelocytes % Myelocytes % Neutrophils # (Manual) RBC Morphology VBG pH VBG pCO2 VBG pO2 VBG HCO3 VBG Total CO2 VBG O2 Saturation VBG Base Excess Sodium 134 L 130 L Potassium 3.8 4.8 Chloride 106 103 Carbon Dioxide 15 L 20 L BUN 39 H 42 H Creatinine 0.78 0.77 Estimated GFR > 60.0 > 60.0 BUN/Creatinine Ratio 50.0 H 54.5 H Glucose 318 H D 271 H Hemoglobin A1c Lactate Calcium 8.6 8.5 Phosphorus Magnesium Total Bilirubin AST ALT Alkaline Phosphatase NT-Pro-B Natriuret Pep Total Protein Albumin Globulin Albumin/Globulin Ratio Lipase Procalcitonin Serum , Qual Urine Color Urine Appearance Urine pH Ur Specific [place] Urine Protein Urine Glucose (UA) Urine Ketones Urine Occult Blood Urine Nitrate Urine Bilirubin Urine Urobilinogen Ur Leukocyte Esterase Urine RBC Urine WBC Ur Squamous Epith Cells Urine Bacteria Urine Yeast Ur Culture Indicated? Nasal Screen MRSA (PCR) Salicylates U Opiates 300ng/mL cut Ur Oxycodone Screen Urine Methadone Screen Ur Barbiturates Screen U Tricyclic Antidepress Ur Phencyclidine Scrn Ur Amphetamines Screen U Methamphetamines Scrn Ur MDMA Scrn (Ecstasy) U Benzodiazepines Scrn Urine Cocaine Screen U Marijuana (THC) Screen Ethyl Alcohol Ketones SARS-CoV-2 (PCR) [facility] Medical History DKA (diabetic ketoacidoses) History of pyelonephritis Irregular menstrual cycle Migraine headache Nephrolithiasis Noncompliance w/medication treatment due to intermit use of medication Type 1 diabetes mellitus Surgical History History of ureter stent Hx of cataract surgery Hx of local excision of skin lesion Status post laser lithotripsy of ureteral calculus Hollis teeth extracted Family History Father In good health Mother Cardiac disease Social History details: Engaged household members: significant other and family Smoking Status: Never smoker alcohol intake: never Discharge Plan Discharge Plan Patient Disposition: Home Discharge orders & Medications Prescriptions: New Lantus Solostar U-100 Insulin 100 unit/mL (3 mL) Insulin Pen 25 unit SUBCUT BID 10 Days Qty: 5 2RF insulin aspart U-100 [Novolog U-100 Insulin aspart] 100 unit/mL solution 1 sliding scale dose SUBCUT USEASDIRECTD Qty: 10 2RF Rx Instructions: USE SLIDING SCALE PLS Continued glucose 4 gram tablet,chewable 4 gram PO Q15M PRN (Reason: hypoglycemia) Qty: 30 0RF Rx Instructions: until response Glucagon Emergency Kit (human) 1 mg recon soln 1 mg subcut DIRECTED 0RF insulin aspart U-100 [Novolog Flexpen U-100 Insulin] 100 unit/mL (3 mL) insulin pen 10 unit SUBCUT AC 0RF Rx Instructions: Pt states she uses 10 units plus a sliding scale based on her blood sugar. She is vague in response to exact # over 10 units. diphenhydramine HCl 50 mg Capsule 50 mg PO BEDTIME PRN (Reason: Sleep) 0RF Rx Instructions: for itching and sleep Discontinued Lantus Solostar U-100 Insulin 100 unit/mL (3 mL) Insulin Pen 15 unit SUBCUT BID 30 Days Qty: 9 11RF Medication counseling provided by Pharmacist: Yes Follow up/Referrals: Maria Ines Limon DO [Primary Care Provider] - Diet/Activity/Treatments Diet: Carb-consistent/Diabetic Activity: TOLERATED Discharge Data Primary Care Provider: Maria Ines Limon Quality VTE Deep Vein Thrombosis/Pulmonary Embolism Present on Admission: No
[2021-04-13] MEDS: INSULIN LISPRO 100 UNIT/ML 3ML VIAL SUBCUT (16:43)
--- NOTE | 2021-04-13 18:09 | PC.NURSE ---
discharged to home with new orders for increased lantus dose bid- she understands this and agrees to be compliant- left with mother at this time
[2021-04-13 22:15] LABS: Acinetobacter baumannii Not Detected (Not Detect); Candida albicans Not Detected (Not Detect); Candida glabrata Not Detected (Not Detect); Candida krusei Not Detected (Not Detect); Candida parapsilosis Not Detected (Not Detect); Candida tropicalis Not Detected (Not Detect); E. coli Not Detected (Not Detect); Enterobacter cloacae complex Not Detected (Not Detect); Enterobacteriaceae species Not Detected (Not Detect); Enterococcus species Not Detected (Not Detect); Haemophilus influenzae Not Detected (Not Detect); Listeria monocytogenes Not Detected (Not Detect); Neisseria meningitidis Not Detected (Not Detect); Proteus species Not Detected (Not Detect); Pseudomonas aeruginosa Not Detected (Not Detect); Serratia marcescens Not Detected (Not Detect); Staphylococcus species Detected (Not Detect); Streptococcus agalactiae (Gr B Not Detected (Not Detect); Streptococcus pneumonia Not Detected (Not Detect); Streptococcus pyogenes (Gr A) Not Detected (Not Detect); Streptococcus species Not Detected (Not Detect)
[2021-04-14 12:12] LABS: Osmolality, Serum 357 mOsmol/kg (275-295)
== END 2021-04-13 17:35 | disposition home or self-care (01) | DRG 637 ==
LOC: ED 22:54 → ICU 04-13 02:53 → AC 06-08 13:04
PROVIDERS: Hospitalist; Admitting Provider Nurse Practitioner Family; Emergency Provider Emergency Medicine; PCP Student in an Organized Health Care Education/Training Program; Referring Provider Emergency Medicine; Visit Provider Nurse Practitioner Family
DX: E10.10 Type 1 diabetes mellitus with ketoacidosis without coma (principal); E43 Unspecified severe protein-calorie malnutrition; Z68.1 Body mass index [BMI] 19.9 or less, adult; E10.43 Type 1 diabetes mellitus with diabetic autonomic (poly)neuropathy; K31.84 Gastroparesis; N31.9 Neuromuscular dysfunction of bladder, unspecified; T38.3X6A Underdosing of insulin and oral hypoglycemic [antidiabetic] drugs, initial encounter; Z20.822 Contact with and (suspected) exposure to COVID-19; Z79.4 Long term (current) use of insulin; Z91.128 Patient's intentional underdosing of medication regimen for other reason
CPT/HCPCS: 36415; 80048; 80053; 80305; 80320; 80329; 81001; 82009; 82805; 82962; 83036; 83605; 83690; 83735; 83880; 83930; 84100; 84145; 84703; 85007; 85025; 87040; 87150; 87205; 87635; 87797; 96361; 96365; 96375; 99284; 99285; 99291; C9803; G0378; G0480; J1170; J1815; J1885; J2405

== ENCOUNTER 2021-08-29 11:47 | Observation (INO) | payer OTHER, MEDICAID, SELFPAY ==
[2021-08-29] VITALS (16 sets, daily range): BP systolic 93–137; BP diastolic 54–89; PULSE 96–125; RESP 13–28; TEMP 36.2–36.6; O2SAT 82–100; BMI 18.7
[2021-08-29] MEDS: ONDANSETRON 4 MG/2 ML INJ IV (12:31)
[2021-08-29] MEDS: SODIUM CHLORIDE 0.9% 1,000 ML 1000 ML IV ×2 (12:32→14:08)
[2021-08-29 12:33] LABS: Add Manual Diff / Slide Review NO; Basophils Absolute Auto 100 /uL (0-100); Basophils Percent Auto 0.9 % (0-2); Eosinophils Absolute Auto 0 /uL (0-450); Eosinophils Percent Auto 0.2 % (2-4); Hemoglobin 14.6 g/dL (12.0-16.0); Lymphocytes Absolute Auto 1100 /uL (1100-4500); Lymphocytes Percent Auto 15.8 % (25-40); Mean Corpuscular HGB Conc 31.8 % (30-36); Mean Corpuscular Hemoglobin 30.8 PG (26-34); Mean Corpuscular Volume 96.7 fL (80-100); Monocytes Absolute Auto 400 /uL (0-900); Monocytes Percent Auto 5.6 % (3-14); Neutrophils Absolute Auto 5600 /uL (1500-7000); Neutrophils Percent Auto 77.5 % (50-75); Platelet Count 429 X10^3/uL (150-400); Red Blood Cell Count 4.76 X10^6/uL (4.0-5.2); Red Cell Distribution Width 13.3 % (11.6-14.8); White Blood Cell Count 7.2 X10^3/uL (4.5-11.0)
[2021-08-29 12:43] LABS: Alanine Aminotransferase 24 IU/L (<35); Albumin 4.5 g/dL (3.5-5.0); Albumin Globulin Ratio 1.4 (1.0-2.8); Alkaline Phosphatase 230 U/L (38-126); Aspartate Aminotransferase 32 IU/L (14-36); BUN Creatinine Ratio 36.7 (6-22); Bilirubin Total 0.6 mg/dL (0.2-1.3); Blood Urea Nitrogen 29 mg/dL (7-17); Calcium 9.3 mg/dL (8.4-10.2); Chloride 89 mmol/L (98-107); Estimated Glomerular Filt Rate > 60 mL/min (>60); Globulin 3.2 g/dL (1.7-4.1); Sodium 126 mmol/L (137-145); Total Protein 7.7 g/dL (6.3-8.2)
[2021-08-29 12:43] LABS: HCO3 VBG 9 mmol/L (23-28); PCO2 VBG 25.3 mmHg (45-50); PO2 VBG 27 mmHg (35-45); Total CO2 VBG 10 mmol/L (24-29)
[2021-08-29 12:44] LABS: Lactate (Lactic Acid) 1.2 mmol/L (0.7-2.1)
[2021-08-29 12:44] LABS: Oxygen Saturation VBG 37 % (70-75); pH VBG 7.18 (7.33-7.43)
[2021-08-29 12:50] LABS: HEMOLYSIS 15 (0-50)
[2021-08-29 12:54] LABS: Potassium 5.6 mmol/L (3.4-5.1)
[2021-08-29 12:55] LABS: Carbon Dioxide 7 mmol/L (22-32); Glucose 943 mg/dL (70-100)
--- NOTE | 2021-08-29 13:20 | ED.GENADULT ---
HPI - General Adult General Chief complaint: Diabetic Problem Stated complaint: States DKA Time Seen by Provider: 08/29/21 12:25 Source: patient Mode of arrival: Wheelchair History of Present Illness HPI narrative: Patient is a 31-year-old female history of insulin-dependent diabetes presenting today with elevated glucose abdominal pain and nausea. She is frequently admitted for DKA however she has not been admitted since March. She says this started earlier this morning. She has pain all over. She denies chest pain shortness of breath or fever. She is having some right-sided abdominal pain. Related Data Home Medications Medication Instructions Recorded Confirmed glucagon (human recombinant) 1 mg 1 mg SUBCUT DIRECTED 02/16/19 08/29/21 solution for injection (Glucagon Emergency Kit) insulin aspart U-100 100 unit/mL 10 unit SUBCUT AC 05/20/20 08/29/21 (3 mL) subcutaneous pen (Novolog Flexpen U-100 Insulin aspart) diphenhydramine HCl 50 mg capsule 50 mg PO BEDTIME PRN 09/29/20 08/29/21 Previous Rx's Medication Instructions Recorded glucose 4 gram chewable tablet 4 gram PO Q15M PRN #30 tab 12/12/18 insulin aspart U-100 100 unit/mL 1 sliding scale dose SUBCUT 04/13/21 subcutaneous solution (Novolog USEASDIRECTD #10 ml U-100 Insulin aspart) insulin glargine 100 unit/mL (3 25 unit (0.25 mL) SUBCUT BID 10 04/13/21 mL) subcutaneous pen (Lantus Days #5 ml Solostar U-100 Insulin) Allergies Allergy/AdvReac Type Severity Reaction Status Date / Time abdalla [ABDALLA] Allergy Intermediate Hives, Verified 08/29/21 12:11 pruritus iodine [IODINE] Allergy Intermediate rash, itchy Verified 08/29/21 12:11 morphine Allergy Intermediate Difficulty Verified 08/29/21 12:11 Breathing shellfish derived Allergy Intermediate rash Verified 08/29/21 12:11 [SHELLFISH DERIVED] adhesive [ADHESIVE] Allergy Unknown tape Verified 08/29/21 12:11 latex [LATEX] Allergy Unknown Hives Verified 08/29/21 12:11 Review of Systems Review of Systems Narrative: GENERAL: Denies chills, fatigue, malaise, fever, sweats, travel HEENT: Denies sinus pain, ear pain, sore throat, difficulty swallowing, neck pain RESPIRATORY: Denies dyspnea, cough, wheezing, hemoptysis, sputum. CARDIOVASCULAR: Denies chest pain, palpitations, orthopnea, edema GASTROINTESTINAL: See HPI : Denies dysuria, frequency, incontinence, hematuria, urinary retention, flank pain. MUSCULOSKELETAL: Denies weakness, joint pain, or bony pain SKIN: No rash, no erythema, no pruritus NEUROLOGIC: Denies weakness, dizziness, headache, numbness, change in speech, confusion PSYCHIATRIC: No concerning psychosocial issues. 12 point review of systems is negative except for those stated above and HPI Patient History Medical History DKA (diabetic ketoacidoses) History of pyelonephritis Irregular menstrual cycle Migraine headache Nephrolithiasis Noncompliance w/medication treatment due to intermit use of medication Type 1 diabetes mellitus Surgical History History of ureter stent Hx of cataract surgery Hx of local excision of skin lesion Status post laser lithotripsy of ureteral calculus [place] teeth extracted Family History Father In good health Mother Cardiac disease Social History details: Engaged household members: significant other and family Smoking Status: Never smoker alcohol intake: never Smoking Status: Never smoker alcohol intake frequency: holidays/special occasions only Substance Use Type: does not use Exam Initial Vital Signs Initial Vital Signs: Vital Signs Temperature 98 F 08/29/21 12:09 Pulse Rate 120 H 08/29/21 12:09 Respiratory Rate 28 H 08/29/21 12:09 Blood Pressure 112/62 08/29/21 12:09 Pulse Oximetry 98 08/29/21 12:09 GENERAL: alert thin careful 31-year-old female HEENT: Head atraumatic,EOMI, pupils reactive, face symmetric, dry mucous membranes CARDIOVASCULAR: Regular rate and rhythm without murmurs, rubs or gallops. RESPIRATORY: Breath sounds equal bilaterally, no wheezes rales or rhonchi. ABDOMEN: Soft, nontender. Normoactive bowel sounds all 4 quadrants. No guarding or rebound. EXTREMITIES: Normal range of motion, no clubbing or edema. Neurovascularly intact NEUROLOGICAL: Alert and oriented x4. SKIN: Warm, dry, no laceration, no petechiae, no rashes or lesions. Course Orders Ordered: ED Orders 08/29/21 12:20 Complete Blood Count AUTO DIFF Stat Comprehensive Metabolic Panel Stat Ketones (Beta-Hydroxybutyrate) Stat Lactate (Lactic Acid) Stat Test Serum,Qual Stat Procalcitonin Stat 08/29/21 12:32 Venous Blood Gas Stat 08/29/21 12:46 EKG-12 Lead Stat 08/29/21 14:05 CT abdomen pelvis w con Stat Acetaminophen (Acetaminophen 325 Mg Tablet) 975 mg PO Q8HR PRN PRN Reason: pain Dextrose (Dextrose 50 % In Water 25 Gm/50 Ml Syringe) 25 gm IV PRN PRN; Protocol PRN Reason: Hypoglycemia Enoxaparin Sodium (Enoxaparin 40 Mg/0.4 Ml Syringe) 40 mg SUBCUT DAILY BLAISE Heparin Sodium (Porcine) (Heparin Flush (Cl/Picc/Mid-Line) 50 Unit/5 Ml Syringe) 50 unit IV PRN PRN PRN Reason: Flush INSULIN DRIP PREMIX (Myxredlin Drip Premix) 100 unit in 100 mls @ 6 mls/hr IV TITRATE BLAISE; Protocol Last Titration: 08/29/21 19:33 Dose: 6.7 units/hr, 6.7 mls/hr Documented by: DYLLAN Cosigned by: NCANNIF Titration: 08/29/21 19:01 Dose: 6.7 units/hr, 6.7 mls/hr Documented by: DYLLAN Cosigned by: NCANNIF Titration: 08/29/21 19:00 Dose: 270 units/hr, 270 mls/hr Documented by: DYLLAN Cosigned by: NCANNIF Titration: 08/29/21 18:01 Dose: 6.7 units/hr, 6.7 mls/hr Documented by: DYLLAN Cosigned by: NCANNIF Titration: 08/29/21 18:00 Dose: 270 units/hr, 270 mls/hr Documented by: DYLLAN Cosigned by: NCANNIF Titration: 08/29/21 17:01 Dose: 6.7 units/hr, 6.7 mls/hr Documented by: DYLLAN Cosigned by: NCANNIF Titration: 08/29/21 17:00 Dose: 270 units/hr, 270 mls/hr Documented by: DYLLAN Cosigned by: ARINAIF Titration: 08/29/21 16:18 Dose: 6.7 units/hr, 6.7 mls/hr Documented by: DYLLAN Cosigned by: NCANNIF Titration: 08/29/21 16:17 Dose: 270 units/hr, 270 mls/hr Documented by: DYLLAN Cosigned by: NCANNIF Titration: 08/29/21 16:17 Dose: 6.7 units/hr, 6.7 mls/hr Documented by: DYLLAN Cosigned by: NCANNIF Titration: 08/29/21 15:12 Dose: 6 units/hr, 6 mls/hr Documented by: DYLLAN Cosigned by: NCANNIF Titration: 08/29/21 15:10 Dose: 0 units/hr, 0 mls/hr Documented by: PANCHITO Cosigned by: JENNIFER Admin: 08/29/21 14:04 Dose: 6 units/hr, 6 mls/hr Documented by: MEASTE Cosigned by: PANCHITO Sodium Chloride (Normal Saline 0.9%) 1,000 mls @ 150 mls/hr IV CONT BLAISE Last Admin: 08/29/21 16:13 Dose: 150 mls/hr Documented by: DYLLAN Insulin Human Lispro (Insulin Lispro 100 Unit/Ml 3ml Vial) 0 unit SUBCUT PROTOCOL PRN; Protocol PRN Reason: Blood Sugar - High Ketorolac Tromethamine (Ketorolac 30 Mg/Ml Vial) 30 mg IV Q6H PRN PRN Reason: Pain, Moderate (4-6) Stop: 09/01/21 15:21 Last Admin: 08/29/21 16:13 Dose: 30 mg Documented by: DYLLAN Metoclopramide HCl (Metoclopramide Hcl 10 Mg Tablet) 10 mg PO Q6HR PRN PRN Reason: Nausea And Vomiting Naloxone HCl (Naloxone 0.4 Mg/Ml Vial) 0.1 mg IV Q2MIN PRN PRN Reason: Opiate Reversal Tramadol HCl (Tramadol 50 Mg Tablet) 50 mg PO QID PRN PRN Reason: Pain, Moderate (4-6) Last Admin: 08/29/21 18:17 Dose: 50 mg Documented by: DYLLAN Discontinued Medications Acetaminophen (Acetaminophen 325 Mg Tablet) 975 mg PO NOW ONE Stop: 08/29/21 13:24 Last Admin: 08/29/21 13:29 Dose: 975 mg Documented by: SILVIA Diphenhydramine HCl (Diphenhydramine 50 Mg/Ml Vial) 25 mg IV NOW ONE Stop: 08/29/21 13:22 Last Admin: 08/29/21 13:30 Dose: 25 mg Documented by: SILVIA Sodium Chloride (Normal Saline 0.9%) 1,000 mls @ 1,000 mls/hr IV BOLUS ONE Stop: 08/29/21 13:12 Last Infusion: 08/29/21 14:09 Dose: 0 mls/hr Documented by: Admin: 08/29/21 12:32 Dose: 1,000 mls/hr Documented by: ROMERO Sodium Chloride (Normal Saline 0.9%) 1,000 mls @ 1,000 mls/hr IV BOLUS ONE Stop: 08/29/21 13:44 Last Admin: 08/29/21 15:57 Dose: Not Given Documented by: DYLLAN Sodium Chloride (Normal Saline 0.9%) 1,000 mls @ 1,000 mls/hr IV BOLUS ONE Stop: 08/29/21 14:20 Last Infusion: 08/29/21 15:10 Dose: 1,000 mls/hr Documented by: Admin: 08/29/21 14:08 Dose: 1,000 mls/hr Documented by: ROMERO Sodium Chloride (Normal Saline 0.9%) 1,000 mls @ 1,000 mls/hr IV BOLUS ONE Stop: 08/29/21 15:23 Last Admin: 08/29/21 15:57 Dose: Not Given Documented by: DYLLAN Methylprednisolone (Methylprednisolone 125 Mg/2 Ml Vial) 125 mg IV NOW ONE Stop: 08/29/21 13:22 Last Admin: 08/29/21 13:30 Dose: 125 mg Documented by: SILVIA Ondansetron HCl (Ondansetron 4 Mg/2 Ml Inj) 4 mg IV NOW ONE Stop: 08/29/21 12:14 Last Admin: 08/29/21 12:31 Dose: 4 mg Documented by: ROMERO Vital Signs Vital signs: Vital Signs - 8 hr 08/29/21 12:09 08/29/21 12:28 08/29/21 12:30 Temperature 98 F Pulse Rate 120 H 119 H 119 H Respiratory Rate 28 H Blood Pressure 112/62 134/89 137/89 Pulse Oximetry 98 99 100 08/29/21 13:00 Temperature Pulse Rate 120 H Respiratory Rate 15 Blood Pressure 120/77 Pulse Oximetry 100 Medical Decision Making Lab Data Result diagrams: 08/29/21 12:20 08/29/21 16:23 Labs: Lab Results 08/29/21 08/29/21 08/29/21 Range/Units 12:20 12:20 12:20 WBC 7.2 (4.5-11.0) X10^3/uL RBC 4.76 (4.0-5.2) X10^6/uL Hgb 14.6 (12.0-16.0) g/dL Hct 46.0 (36-46) % MCV 96.7 (80-100) fL MCH 30.8 (26-34) PG MCHC 31.8 (30-36) % RDW 13.3 (11.6-14.8) % Plt Count 429 H (150-400) X10^3/uL Neut % (Auto) 77.5 H (50-75) % Lymph % (Auto) 15.8 L (25-40) % Pope % (Auto) 5.6 (3-14) % Eos % (Auto) 0.2 L (2-4) % Baso % (Auto) 0.9 (0-2) % Neut # (Auto) 5600 (6825-8138) /uL Lymph # (Auto) 1100 (2728-1512) /uL Pope # (Auto) 400 (0-900) /uL Eos # (Auto) 0 (0-450) /uL Baso # (Auto) 100 (0-100) /uL VBG pH (7.33-7.43) VBG pCO2 (45-50) mmHg VBG pO2 (35-45) mmHg VBG HCO3 (23-28) mmol/L VBG Total CO2 (24-29) mmol/L VBG O2 Saturation (70-75) % VBG Base Excess (0-4) mmol/L Sodium 126 L (137-145) mmol/L Potassium 5.6 H (3.4-5.1) mmol/L Chloride 89 L (98-107) mmol/L Carbon Dioxide 7 L* (22-32) mmol/L BUN 29 H (7-17) mg/dL Creatinine 0.79 (0.52-1.04) mg/dL Estimated GFR > 60 (>60) mL/min BUN/Creatinine Ratio 36.7 H (6-22) Glucose 943 H* (70-100) mg/dL Lactate 1.2 (0.7-2.1) mmol/L Calcium 9.3 (8.4-10.2) mg/dL Total Bilirubin 0.6 (0.2-1.3) mg/dL AST 32 (14-36) IU/L ALT 24 (<35) IU/L Alkaline Phosphatase 230 H (38-126) U/L Total Protein 7.7 (6.3-8.2) g/dL Albumin 4.5 (3.5-5.0) g/dL Globulin 3.2 (1.7-4.1) g/dL Albumin/Globulin Ratio 1.4 (1.0-2.8) Procalcitonin 0.10 (<0.5) ng/mL Serum , Qual (Negative) Ketones 16.00 H (<0.27) mmol/L 08/29/21 08/29/21 Range/Units 12:20 12:32 WBC (4.5-11.0) X10^3/uL RBC (4.0-5.2) X10^6/uL Hgb (12.0-16.0) g/dL Hct (36-46) % MCV (80-100) fL MCH (26-34) PG MCHC (30-36) % RDW (11.6-14.8) % Plt Count (150-400) X10^3/uL Neut % (Auto) (50-75) % Lymph % (Auto) (25-40) % Pope % (Auto) (3-14) % Eos % (Auto) (2-4) % Baso % (Auto) (0-2) % Neut # (Auto) (9675-8677) /uL Lymph # (Auto) (9679-9637) /uL Pope # (Auto) (0-900) /uL Eos # (Auto) (0-450) /uL Baso # (Auto) (0-100) /uL VBG pH 7.18 L* (7.33-7.43) VBG pCO2 25.3 L (45-50) mmHg VBG pO2 27 L (35-45) mmHg VBG HCO3 9 L (23-28) mmol/L VBG Total CO2 10 L (24-29) mmol/L VBG O2 Saturation 37 L (70-75) % VBG Base Excess -19.0 L (0-4) mmol/L Sodium (137-145) mmol/L Potassium (3.4-5.1) mmol/L Chloride (98-107) mmol/L Carbon Dioxide (22-32) mmol/L BUN (7-17) mg/dL Creatinine (0.52-1.04) mg/dL Estimated GFR (>60) mL/min BUN/Creatinine Ratio (6-22) Glucose (70-100) mg/dL Lactate (0.7-2.1) mmol/L Calcium (8.4-10.2) mg/dL Total Bilirubin (0.2-1.3) mg/dL AST (14-36) IU/L ALT (<35) IU/L Alkaline Phosphatase (38-126) U/L Total Protein (6.3-8.2) g/dL Albumin (3.5-5.0) g/dL Globulin (1.7-4.1) g/dL Albumin/Globulin Ratio (1.0-2.8) Procalcitonin (<0.5) ng/mL Serum , Qual Negative (Negative) Ketones (<0.27) mmol/L Point of Care Testing Test Results Negative Glucose POC 500 Urine Dip Bedside Urine Glucose 1000 mg/dl Bedside Urine Bilirubin - Negative Bedside Urine Ketone +++ 80 Urine Specific [place] 1.015 Bedside Urine Occult Blood +/- Bedside Urine pH 6 Bedside Urine Protein + 30 Bedside Urine Urobilinogen - Negative Bedside Urine Nitrite - Negative Bedside Urine Leukocytes - Negative Esterase Point of care testing: Point of Care Testing Test Results Negative Glucose POC 500 Urine Dip Bedside Urine Glucose 1000 mg/dl Bedside Urine Bilirubin - Negative Bedside Urine Ketone +++ 80 Urine Specific [place] 1.015 Bedside Urine Occult Blood +/- Bedside Urine pH 6 Bedside Urine Protein + 30 Bedside Urine Urobilinogen - Negative Bedside Urine Nitrite - Negative Bedside Urine Leukocytes - Negative Esterase Imaging Data CT scan - abdomen/pelvis: Radiologist's Impression: Signed Patient: Sarabjit Jimenes MR#: [id number] : 1990 Acct:[id number] Age/Sex: 31 / F Date of Service: 08/29/21 Loc: 90A-1 Accession Number: [id number] ?? Procedure: CT abdomen pelvis w con Ordering Provider: Megan Luevano D.O. PROCEDURE:? CT ABDOMEN PELVIS W CON ? INDICATIONS:? right lower quad pain ? TECHNIQUE:? After the administration of oral and IV contrast, axial sections were acquired from the lung bases to the pubic symphysis.? Coronal and sagittal reformats were performed.? For radiation dose reduction, the following was used:? automated exposure control, adjustment of mA and/or kV according to patient size. ? COMPARISON:? [facility], CT, CT ABDOMEN PELVIS W CON, 05/03/2020, 12:05. ? FINDINGS:? Image quality:? Excellent.? ? Lung bases:? Unremarkable.? ? Heart:? No significant findings. ? ? ABDOMEN: Liver:? Unremarkable.? ? Gallbladder:? Unremarkable.? ? Biliary ducts:? Unremarkable.? ? Pancreas:? Unremarkable.? ? Spleen:? Unremarkable.? ? Incidental note is made of an accessory splenule along the anterior aspect of the primary spleen. Adrenal Glands:? Unremarkable.? ? Kidneys and Ureters:? Unremarkable.? ? ? Stomach and Bowel:? In this patient with this given history, scrutiny is given to the appendix.? No appendix (either normal or abnormal) is identified on this study.? ? ? Generalized wall thickening and hyperenhancement can be seen of the small bowel.? No significant colonic abnormality is seen.? No significant gastric abnormality is seen. Peritoneum:? No abnormal intraperitoneal fluid.? No free air.? ? Ventral Wall: ? No hernia.? Abdominal Nodes:? No retroperitoneal or mesenteric adenopathy by size criteria.? Vessels:? Aorta and inferior vena cava are normal in size.? ? PELVIS: Pelvic Organs: The uterus appears normal for age.? No adnexal masses are seen.? Bladder:? Unremarkable.? ? Pelvic Nodes: No enlarged lymph nodes.? Miscellaneous: No inguinal hernias are seen. ? ? ? Bones:? Unremarkable.? ? Mild dextroconvex scoliotic curvature is seen.? ? ? IMPRESSION:? No appendix (either normal or abnormal) is identified on this study.? A? ? Generalized wall thickening and hyperenhancement can be seen of small bowel loops.? Please consider enteritis. ? Dictated by: Remi Polanco M.D. on 08/29/2021 at 13:36 ? ? Approved by: Remi Polanco M.D. on 08/29/2021 at 13:3 Chest x-ray: Radiologist's Impression: t: Sarabjit Jimenes MR#: [id number] : 1990 Acct:[id number] Age/Sex: 31 / F Date of Service: 08/29/21 Loc: ICU 229-1 Accession Number: [id number] ?? Procedure: XR chest 1V Ordering Provider: Megan Luevano D.O. PROCEDURE:? XR CHEST 1V ? INDICATIONS:? dka ? TECHNIQUE:? One view of the chest was acquired.? ? COMPARISON:? [facility], , XR CHEST 1V, 03/25/2021, 3:08. ? FINDINGS:? ? Surgical changes and devices:? None.? ? Lungs and pleura:? Lungs are clear.? No pleural effusions or pneumothorax.? ? Mediastinum:? Mediastinal contours appear normal.? Heart size is normal.? ? Bones and chest wall:? No suspicious bony lesions.? Overlying soft tissues appear unremarkable.? ? IMPRESSION:? No acute cardiopulmonary disease.? ? ? Dictated by: Whitney Henning M.D. on 08/29/2021 at 16:29 ? ? ECG Data Interpretation: Sinus tachycardia rate [address] changes similar to previous EKG MDM Narrative Medical decision making narrative: Patient has a history of frequent DKA admissions. Ph 7.1 anion gap is 30. Similar to previous presentations. She is started on IV fluids and an insulin drip. Dr. Weinberg accepts patient Frequent admissions for noncompliance. Patient frequently receives dilaudid during her admissions. Today she is given Tylenol. Discharge Plan Departure Patient Disposition: Admitted As Inpatient Clinical Impression: DKA (diabetic ketoacidoses) Admit Date/Time: 08/29/21 13:27 Admit Provider: Julio Cesar Weinberg
[2021-08-29] MEDS: ACETAMINOPHEN 325 MG TABLET 975 MG PO (13:29)
[2021-08-29] MEDS: methylPREDNISolone 125 MG/2 ML VIAL IV (13:30)
[2021-08-29] MEDS: diphenhydrAMINE 50 MG/ML VIAL 25 MG IV (13:30)
[2021-08-29 13:38] LABS: Pregnancy Test Serum,Qual Negative (Negative)
[2021-08-29] MEDS: INSULIN DRIP PREMIX 100 UNIT/100 ML PLAST..BAG 6 UNIT IV (14:04)
--- NOTE | 2021-08-29 14:05 | DI.CT.S_ITS ---
PROCEDURE: CT ABDOMEN PELVIS W CON INDICATIONS: right lower quad pain TECHNIQUE: After the administration of oral and IV contrast, axial sections were acquired from the lung bases to the pubic symphysis. Coronal and sagittal reformats were performed. For radiation dose reduction, the following was used: automated exposure control, adjustment of mA and/or kV according to patient size. COMPARISON: [facility], CT, CT ABDOMEN PELVIS W CON, 05/03/2020, 12:05. FINDINGS: Image quality: Excellent. Lung bases: Unremarkable. Heart: No significant findings. ABDOMEN: Liver: Unremarkable. Gallbladder: Unremarkable. Biliary ducts: Unremarkable. Pancreas: Unremarkable. Spleen: Unremarkable. Incidental note is made of an accessory splenule along the anterior aspect of the primary spleen. Adrenal Glands: Unremarkable. Kidneys and Ureters: Unremarkable. Stomach and Bowel: In this patient with this given history, scrutiny is given to the appendix. No appendix (either normal or abnormal) is identified on this study. Generalized wall thickening and hyperenhancement can be seen of the small bowel. No significant colonic abnormality is seen. No significant gastric abnormality is seen. Peritoneum: No abnormal intraperitoneal fluid. No free air. Ventral Wall: No hernia. Abdominal Nodes: No retroperitoneal or mesenteric adenopathy by size criteria. Vessels: Aorta and inferior vena cava are normal in size. PELVIS: Pelvic Organs: The uterus appears normal for age. No adnexal masses are seen. Bladder: Unremarkable. Pelvic Nodes: No enlarged lymph nodes. Miscellaneous: No inguinal hernias are seen. Bones: Unremarkable. Mild dextroconvex scoliotic curvature is seen. IMPRESSION: No appendix (either normal or abnormal) is identified on this study. A Generalized wall thickening and hyperenhancement can be seen of small bowel loops. Please consider enteritis. Dictated by: Remi Polanco M.D. on 08/29/2021 at 13:36 Approved by: Remi Polanco M.D. on 08/29/2021 at 13:39
--- NOTE | 2021-08-29 14:47 | DI.RAD.S_ITS ---
PROCEDURE: XR CHEST 1V INDICATIONS: dka TECHNIQUE: One view of the chest was acquired. COMPARISON: [facility], CR, XR CHEST 1V, 03/25/2021, 3:08. FINDINGS: Surgical changes and devices: None. Lungs and pleura: Lungs are clear. No pleural effusions or pneumothorax. Mediastinum: Mediastinal contours appear normal. Heart size is normal. Bones and chest wall: No suspicious bony lesions. Overlying soft tissues appear unremarkable. IMPRESSION: No acute cardiopulmonary disease. Dictated by: Whitney Henning M.D. on 08/29/2021 at 16:29 Approved by: Whitney Henning M.D. on 08/29/2021 at 16:29
[2021-08-29 15:28] LABS: Bacteria Urine None Seen; Culture Indicated Urine Cult Not Indicated; RBC Urine 0-1/HPF (0-5/HPF); Squamous Epithelial Cell Urine None Seen (0-5/HPF); WBC Urine None Seen (0-5/HPF)
[2021-08-29 15:47] LABS: COVID19 -Nasal RAPID Negative (Negative)
[2021-08-29] MEDS: KETOROLAC 30 MG/ML VIAL IV (16:13)
[2021-08-29] MEDS: SODIUM CHLORIDE 0.9% 1,000 ML 150 ML IV (16:13)
--- NOTE | 2021-08-29 16:22 | P.HP_ITS ---
History of Present Illness History of Present Illness Date Patient Seen: 08/29/21 Time Patient Seen: 16:25 Chief complaint: States DKA Narrative: Romi Jimenes is a 31-year-old type 1 diabetic female well known to staff with a history of multiple admissions for diabetic ketoacidosis, was in her usual state of health when she started to have significant nausea and vomiting as well as abdominal pain this morning. She reports some abdominal pain over the past tw o weeks. She reports her blood sugars have been high over the last couple of days. She reports no recent changes to her insulin. In the emergency room, the patient was tachycardic, but the remainder of her vital signs were unremarkable. CBC was unremarkable, chemistries revealed a significant metabolic acidosis with anion gap, with a CO2 of 7, anion gap of 30. She was started on an insulin infusion and IV fluids. Corrected sodium is within normal limits. Procalcitonin was negative. Urine was negative. Urinalysis showed no evidence of infection. COVID-19 testing was negative. She was admitted to the ICU for further management of DKA. Patient History Medical History DKA (diabetic ketoacidoses) History of pyelonephritis Irregular menstrual cycle Migraine headache Nephrolithiasis Noncompliance w/medication treatment due to intermit use of medication Type 1 diabetes mellitus Surgical History History of ureter stent Hx of cataract surgery Hx of local excision of skin lesion Status post laser lithotripsy of ureteral calculus [place] teeth extracted Family & Social History Family History Father In good health Mother Cardiac disease Social History: household members significant other,family Safety & Behavioral: Feels Safe in Current Yes Environment Been Physically Hurt or No Threatened By a Person Tobacco & Substance use: Smoking Status Never smoker alcohol intake never alcohol intake frequency holiday/special occasion Substance Use Type does not use Meds Home Medications and Allergies Home Medications Medication Instructions Recorded Confirmed Type glucose 4 gram chewable tablet 4 gram PO Q15M PRN #30 tab 12/12/18 08/29/21 Rx glucagon (human recombinant) 1 mg 1 mg SUBCUT DIRECTED 02/16/19 08/29/21 History solution for injection (Glucagon Emergency Kit) insulin aspart U-100 100 unit/mL 10 unit SUBCUT AC 05/20/20 08/29/21 History (3 mL) subcutaneous pen (Novolog Flexpen U-100 Insulin aspart) diphenhydramine HCl 50 mg capsule 50 mg PO BEDTIME PRN 09/29/20 08/29/21 History insulin aspart U-100 100 unit/mL 1 sliding scale dose SUBCUT 04/13/21 08/29/21 Rx subcutaneous solution (Novolog USEASDIRECTD #10 ml U-100 Insulin aspart) insulin glargine 100 unit/mL (3 25 unit (0.25 mL) SUBCUT BID 10 04/13/21 08/29/21 Rx mL) subcutaneous pen (Lantus Days #5 ml Solostar U-100 Insulin) Allergies Allergy/AdvReac Type Severity Reaction Status Date / Time abdalla [ABDALLA] Allergy Intermediate Hives, Verified 08/29/21 12:11 pruritus iodine [IODINE] Allergy Intermediate rash, itchy Verified 08/29/21 12:11 morphine Allergy Intermediate Difficulty Verified 08/29/21 12:11 Breathing shellfish derived Allergy Intermediate rash Verified 08/29/21 12:11 [SHELLFISH DERIVED] adhesive [ADHESIVE] Allergy Unknown tape Verified 08/29/21 12:11 latex [LATEX] Allergy Unknown Hives Verified 08/29/21 12:11 Review of Systems Review of Systems Narrative: All other systems reviewed with the patient and are negative unless otherwise stated. Exam Vital Signs (past 8 hours): - 08/29/21 12:09 08/29/21 12:28 08/29/21 12:30 Temperature 98 F Pulse Rate 120 H 119 H 119 H Respiratory Rate 28 H Blood Pressure 112/62 134/89 137/89 Pulse Oximetry 98 99 100 08/29/21 13:00 08/29/21 13:30 08/29/21 14:30 Temperature Pulse Rate 120 H 120 H 120 H Respiratory Rate 15 17 25 H Blood Pressure 120/77 124/80 Pulse Oximetry 100 100 99 08/29/21 14:57 08/29/21 15:00 08/29/21 15:17 Temperature Pulse Rate 119 H 120 H 125 H Respiratory Rate 17 13 Blood Pressure 111/70 119/77 Pulse Oximetry 99 99 99 08/29/21 15:30 Temperature Pulse Rate 121 H Respiratory Rate Blood Pressure Pulse Oximetry 100 Oxygen Delivery Method Room Air Narrative Exam Narrative: GENERAL APPEARANCE:? Acutely ill-appearing young female, pale. SKIN: Inspection of the skin reveals no rashes, ulcerations or petechiae.? Tattoos are present. HEENT:? Normocephalic atraumatic, extraocular muscles are intact, oropharynx is clear and mucous membranes are moist, neck is supple without adenopathy. NECK: Supple and symmetric. There was no thyroid enlargement, and no tenderness, or masses were felt. CHEST: Normal AP diameter and normal contour without any kyphoscoliosis. LUNGS: Auscultation of the lungs revealed no wheezes, rhonchi, or rales. CARDIOVASCULAR: There was a tachycardic rate and regularrhythm without any murmurs, gallops, rubs. Peripheral pulses were 2+ and symmetric. ABDOMEN: Soft, diffusely tender but minimally without guarding or rebound, nondistended. No ascites was noted. MUSCULOSKELETAL: There was no tenderness or effusions noted. Muscle strength and tone were normal. EXTREMITIES: No cyanosis, clubbing or edema. NEUROLOGIC: Alert and oriented x 3.? Strength is +5/5 in the Upper Extremities and Lower Extremities Bilaterally. Sensation to touch was normal. Objective Labs Result Diagrams: 08/29/21 12:20 08/29/21 16:00 Labs: Laboratory Results - last 24 hr 08/29/21 08/29/21 08/29/21 12:20 12:20 12:20 WBC 7.2 RBC 4.76 Hgb 14.6 Hct 46.0 MCV 96.7 MCH 30.8 MCHC 31.8 RDW 13.3 Plt Count 429 H Neut % (Auto) 77.5 H Lymph % (Auto) 15.8 L [place] % (Auto) 5.6 Eos % (Auto) 0.2 L Baso % (Auto) 0.9 Neut # (Auto) 5600 Lymph # (Auto) 1100 [place] # (Auto) 400 Eos # (Auto) 0 Baso # (Auto) 100 VBG pH VBG pCO2 VBG pO2 VBG HCO3 VBG Total CO2 VBG O2 Saturation VBG Base Excess Sodium 126 L Potassium 5.6 H Chloride 89 L Carbon Dioxide 7 L* BUN 29 H Creatinine 0.79 Estimated GFR > 60 BUN/Creatinine Ratio 36.7 H Glucose 943 H* Lactate 1.2 Calcium 9.3 Total Bilirubin 0.6 AST 32 ALT 24 Alkaline Phosphatase 230 H Total Protein 7.7 Albumin 4.5 Globulin 3.2 Albumin/Globulin Ratio 1.4 Procalcitonin 0.10 Serum , Qual Urine RBC Urine WBC Ur Squamous Epith Cells Urine Bacteria Ur Culture Indicated? Ketones 16.00 H SARS-CoV-2 (PCR) 08/29/21 08/29/21 08/29/21 12:20 12:32 13:41 WBC RBC Hgb Hct MCV MCH MCHC RDW Plt Count Neut % (Auto) Lymph % (Auto) [place] % (Auto) Eos % (Auto) Baso % (Auto) Neut # (Auto) Lymph # (Auto) [place] # (Auto) Eos # (Auto) Baso # (Auto) VBG pH 7.18 L* VBG pCO2 25.3 L VBG pO2 27 L VBG HCO3 9 L VBG Total CO2 10 L VBG O2 Saturation 37 L VBG Base Excess -19.0 L Sodium Potassium Chloride Carbon Dioxide BUN Creatinine Estimated GFR BUN/Creatinine Ratio Glucose Lactate Calcium Total Bilirubin AST ALT Alkaline Phosphatase Total Protein Albumin Globulin Albumin/Globulin Ratio Procalcitonin Serum , Qual Negative Urine RBC 0-1/hpf Urine WBC None seen Ur Squamous Epith Cells None seen Urine Bacteria None seen Ur Culture Indicated? Cult not indicated Ketones SARS-CoV-2 (PCR) 08/29/21 15:00 WBC RBC Hgb Hct MCV MCH MCHC RDW Plt Count Neut % (Auto) Lymph % (Auto) [place] % (Auto) Eos % (Auto) Baso % (Auto) Neut # (Auto) Lymph # (Auto) [place] # (Auto) Eos # (Auto) Baso # (Auto) VBG pH VBG pCO2 VBG pO2 VBG HCO3 VBG Total CO2 VBG O2 Saturation VBG Base Excess Sodium Potassium Chloride Carbon Dioxide BUN Creatinine Estimated GFR BUN/Creatinine Ratio Glucose Lactate Calcium Total Bilirubin AST ALT Alkaline Phosphatase Total Protein Albumin Globulin Albumin/Globulin Ratio Procalcitonin Serum , Qual Urine RBC Urine WBC Ur Squamous Epith Cells Urine Bacteria Ur Culture Indicated? Ketones SARS-CoV-2 (PCR) Negative Assessment & Plan Assessment & Plan narrative: ?Clover Jimenes is a 31 y.o. female patient with frequent recurrent episodes of diabetic ketoacidosis who presents today in DKA. 1. Acute diabetic ketoacidosis, in uncontrolled diabetes mellitus type 1, present on admission, active. - continue insulin infusion per protocol. Given 3L IVF in er, continue NS at 15 0 cc. - given prior history avoid opiate medication or benzos for symptom control. - can continue tylenol and toradol for now for pain - reglan and zofran for nausea - patient asking for clears, okay to start but would avoid sugary drinks - tele-residential green building designer consultation appreciated. - Admit AG is 30, pH at 7.18 on VBG. Elevated ketones in the blood. - continue insulin infusion until AG close and bicarb >15. - some enteritis on CT, but no current symptoms of active infection. UA negativ e. No cough or evidence for pneumonia and CXR is clear. - patient was given steroids for prior contrast allergy in the ER and need for abdominal CT, may increase blood sugars temporarily. 2. Pseudohyponatremia - Na on chemistry is 126, corrected with glucose is 139. - continue IV fluids. 3. Hyperkalemia - secondary to DKA, continue DKA management as above. Code status:? FULL CODE Surrogate decision maker:Reggie Gonzales. ? I spent 35 minutes providing critical care management this patient.? This excludes time spent in performing separately billed procedures. I have utilized all available immediate resources to obtain, update, or review the patient's current medications. Time Spent With Patient Critical Care time: I spent a total of [] minutes of critical care time on this patient's care today; this time is exclusive of procedural time.
[2021-08-29 16:46] LABS: Glucose 638 mg/dL (70-100)
--- NOTE | 2021-08-29 18:13 | P.TELICUCN_ITS ---
History of Present Illness Consult details If camera was activated, add TeleICU A-V Statement: 31 year old woman presenting with abd pain and n/v transferred to ICU for management of DKA Chief complaint: States DKA [facility] Medical History DKA (diabetic ketoacidoses) History of pyelonephritis Irregular menstrual cycle Migraine headache Nephrolithiasis Noncompliance w/medication treatment due to intermit use of medication Type 1 diabetes mellitus Surgical History History of ureter stent Hx of cataract surgery Hx of local excision of skin lesion Status post laser lithotripsy of ureteral calculus [place] teeth extracted Family History Father In good health Mother Cardiac disease Social History details: Engaged household members: significant other and family Smoking Status: Never smoker alcohol intake: never Current Medications Current Medications Medications: Home Medications glucose 4 gram chewable tablet 4 gram PO Q15M PRN #30 tab 12/12/18 [Rx Confirmed 08/29/21] glucagon (human recombinant) 1 mg solution for injection (Glucagon Emergency Kit) 1 mg SUBCUT DIRECTED 02/16/19 [History Confirmed 08/29/21] insulin aspart U-100 100 unit/mL (3 mL) subcutaneous pen (Novolog Flexpen U-100 Insulin aspart) 10 unit SUBCUT AC 05/20/20 [History Confirmed 08/29/21] diphenhydramine HCl 50 mg capsule 50 mg PO BEDTIME PRN 09/29/20 [History Confirmed 08/29/21] insulin aspart U-100 100 unit/mL subcutaneous solution (Novolog U-100 Insulin aspart) 1 sliding scale dose SUBCUT USEASDIRECTD #10 ml 04/13/21 [Rx Confirmed 0 08/29/21] insulin glargine 100 unit/mL (3 mL) subcutaneous pen (Lantus Solostar U-100 Insulin) 25 unit (0.25 mL) SUBCUT BID 10 Days #5 ml 04/13/21 [Rx Confirmed 08/29/21] Visit Medications (administered) Generic Name Dose Route Start Last Admin Trade Name Freq PRN Reason Stop Dose Admin INSULIN DRIP PREMIX 100 unit in 100 mls @ 6 mls/hr 08/29/21 13:15 08/29/21 16:17 Myxredlin Drip Premix IV 6.7 units/hr TITRATE BLAISE 6.7 mls/hr Titration Protocol Sodium Chloride 1,000 mls @ 150 mls/hr 08/29/21 15:22 08/29/21 16:13 Normal Saline 0.9% IV 150 mls/hr CONT BLAISE Administration Ketorolac Tromethamine 30 mg 08/29/21 15:22 08/29/21 16:13 Ketorolac 30 Mg/Ml Vial IV 09/01/21 15:21 30 mg Q6H PRN Administration Pain, Moderate (4-6) Exam Vital Signs (past 8 hours): - 08/29/21 12:09 08/29/21 12:28 08/29/21 12:30 Temperature 98 F Pulse Rate 120 H 119 H 119 H Respiratory Rate 28 H Blood Pressure 112/62 134/89 137/89 Pulse Oximetry 98 99 100 08/29/21 13:00 08/29/21 13:30 08/29/21 14:30 Temperature Pulse Rate 120 H 120 H 120 H Respiratory Rate 15 17 25 H Blood Pressure 120/77 124/80 Pulse Oximetry 100 100 99 08/29/21 14:57 08/29/21 15:00 08/29/21 15:17 Temperature Pulse Rate 119 H 120 H 125 H Respiratory Rate 17 13 Blood Pressure 111/70 119/77 Pulse Oximetry 99 99 99 08/29/21 15:30 08/29/21 16:03 08/29/21 17:25 Temperature Pulse Rate 121 H 96 H 121 H Respiratory Rate Blood Pressure 105/58 L Pulse Oximetry 100 82 L 97 Oxygen Delivery Method Room Air Narrative Exam Narrative: surrogate for exam is primary team Objective Labs Result Diagrams: 08/29/21 12:20 08/29/21 16:00 Labs: Laboratory Results - last 24 hr 08/29/21 08/29/21 08/29/21 12:20 12:20 12:20 WBC 7.2 RBC 4.76 Hgb 14.6 Hct 46.0 MCV 96.7 MCH 30.8 MCHC 31.8 RDW 13.3 Plt Count 429 H Neut % (Auto) 77.5 H Lymph % (Auto) 15.8 L [place] % (Auto) 5.6 Eos % (Auto) 0.2 L Baso % (Auto) 0.9 Neut # (Auto) 5600 Lymph # (Auto) 1100 [place] # (Auto) 400 Eos # (Auto) 0 Baso # (Auto) 100 VBG pH VBG pCO2 VBG pO2 VBG HCO3 VBG Total CO2 VBG O2 Saturation VBG Base Excess Sodium 126 L Potassium 5.6 H Chloride 89 L Carbon Dioxide 7 L* BUN 29 H Creatinine 0.79 Estimated GFR > 60 BUN/Creatinine Ratio 36.7 H Glucose 943 H* Lactate 1.2 Calcium 9.3 Total Bilirubin 0.6 AST 32 ALT 24 Alkaline Phosphatase 230 H Total Protein 7.7 Albumin 4.5 Globulin 3.2 Albumin/Globulin Ratio 1.4 Procalcitonin 0.10 Serum , Qual Urine RBC Urine WBC Ur Squamous Epith Cells Urine Bacteria Ur Culture Indicated? Ketones 16.00 H SARS-CoV-2 (PCR) 08/29/21 08/29/21 08/29/21 12:20 12:32 13:41 WBC RBC Hgb Hct MCV MCH MCHC RDW Plt Count Neut % (Auto) Lymph % (Auto) [place] % (Auto) Eos % (Auto) Baso % (Auto) Neut # (Auto) Lymph # (Auto) [place] # (Auto) Eos # (Auto) Baso # (Auto) VBG pH 7.18 L* VBG pCO2 25.3 L VBG pO2 27 L VBG HCO3 9 L VBG Total CO2 10 L VBG O2 Saturation 37 L VBG Base Excess -19.0 L Sodium Potassium Chloride Carbon Dioxide BUN Creatinine Estimated GFR BUN/Creatinine Ratio Glucose Lactate Calcium Total Bilirubin AST ALT Alkaline Phosphatase Total Protein Albumin Globulin Albumin/Globulin Ratio Procalcitonin Serum , Qual Negative Urine RBC 0-1/hpf Urine WBC None seen Ur Squamous Epith Cells None seen Urine Bacteria None seen Ur Culture Indicated? Cult not indicated Ketones SARS-CoV-2 (PCR) 08/29/21 08/29/21 15:00 16:00 WBC RBC Hgb Hct MCV MCH MCHC RDW Plt Count Neut % (Auto) Lymph % (Auto) [place] % (Auto) Eos % (Auto) Baso % (Auto) Neut # (Auto) Lymph # (Auto) [place] # (Auto) Eos # (Auto) Baso # (Auto) VBG pH VBG pCO2 VBG pO2 VBG HCO3 VBG Total CO2 VBG O2 Saturation VBG Base Excess Sodium Potassium Chloride Carbon Dioxide BUN Creatinine Estimated GFR BUN/Creatinine Ratio Glucose 638 H* Lactate Calcium Total Bilirubin AST ALT Alkaline Phosphatase Total Protein Albumin Globulin Albumin/Globulin Ratio Procalcitonin Serum , Qual Urine RBC Urine WBC Ur Squamous Epith Cells Urine Bacteria Ur Culture Indicated? Ketones SARS-CoV-2 (PCR) Negative Assessment & Plan Assessment & Plan narrative: DKA continue insulin gtt IVF FS q1 hr switch to 1/2NS KCL when K < 5 add d5w when bbg < 200 trend bmp q4 hrs can start diet when nausea imrpoves zofran prn blood cx bridge to lantus when AG closed Time Spent With Patient Critical Care time: I spent a total of [] minutes of critical care time on this patient's care today; this time is exclusive of procedural time.
[2021-08-29] MEDS: TRAMADOL 50 MG TABLET PO (18:17)
[2021-08-29 18:38] LABS: HCO3 VBG 10 mmol/L (23-28); Oxygen Saturation VBG 73 % (70-75); PCO2 VBG 29.7 mmHg (45-50); PO2 VBG 51 mmHg (35-45); Total CO2 VBG 11 mmol/L (24-29)
[2021-08-29 18:39] LABS: pH VBG 7.12 (7.33-7.43)
--- NOTE | 2021-08-29 18:48 | PC.ADMIT ---
[email or web address] [address] Admission Note: The patient,Sarabjit Jimenes,31 y/o, was given written information regarding hospital policies, unit procedures and contact persons. Patient's smoking status: Never smoker. Vital Signs - 8 hr 08/29/21 12:09 08/29/21 12:28 08/29/21 12:30 Temperature 98 F Pulse Rate 120 H 119 H 119 H Respiratory Rate 28 H Blood Pressure 112/62 134/89 137/89 Pulse Oximetry 98 99 100 08/29/21 13:00 08/29/21 13:30 08/29/21 14:30 Temperature Pulse Rate 120 H 120 H 120 H Respiratory Rate 15 17 25 H Blood Pressure 120/77 124/80 Pulse Oximetry 100 100 99 08/29/21 14:57 08/29/21 15:00 08/29/21 15:17 Temperature Pulse Rate 119 H 120 H 125 H Respiratory Rate 17 13 Blood Pressure 111/70 119/77 Pulse Oximetry 99 99 99 08/29/21 15:30 08/29/21 16:03 08/29/21 17:25 Temperature Pulse Rate 121 H 96 H 121 H Respiratory Rate Blood Pressure 105/58 L Pulse Oximetry 100 82 L 97 Patient admitted to ICU from ED at 1510 under hospitalists' care. Arrived with insulin gtt running at 6un/hr and 2nd 1L bolus NS. TeleICU Dr. Bowling consulted. Patient is A/Ox4, C/O abdominal pain, BP WNL, HR elevated 100-110's. Patient oriented to call system and room, able to make needs known.
[2021-08-29 19:04] LABS: BUN Creatinine Ratio 38.9 (6-22); Blood Urea Nitrogen 28 mg/dL (7-17); Calcium 8.4 mg/dL (8.4-10.2); Carbon Dioxide 10 mmol/L (22-32); Chloride 106 mmol/L (98-107); Estimated Glomerular Filt Rate > 60 mL/min (>60); HEMOLYSIS < 15 (0-50); Potassium 4.4 mmol/L (3.4-5.1); Sodium 134 mmol/L (137-145)
[2021-08-29 19:09] LABS: Glucose 492 mg/dL (70-100)
--- NOTE | 2021-08-29 20:56 | PM.ICURNDS ---
- Date Patient Seen: 08/29/21 Time Patient Seen: 20:56 :: This patient was seen via real time interactive two-way audiovisual telecommunication. Note: patient seen with bedside nurse chart/labs/imaging reviewed suggest to continue DKA protocol change NS to LR, bolus 500cc of LR keep glucose above 200 while on insulin drip replace K prn bmp q2-4 call eICU prn
[2021-08-29] MEDS: LACTATED RINGERS 500 ML 1000 ML IV (21:25)
[2021-08-29 21:53] LABS: BUN Creatinine Ratio 45.9 (6-22); Blood Urea Nitrogen 28 mg/dL (7-17); Carbon Dioxide 14 mmol/L (22-32); Chloride 107 mmol/L (98-107); Estimated Glomerular Filt Rate > 60 mL/min (>60); Glucose 401 mg/dL (70-100); HEMOLYSIS < 15 (0-50); Potassium 4.4 mmol/L (3.4-5.1); Sodium 132 mmol/L (137-145)
[2021-08-29] MEDS: LACTATED RINGERS 1,000 ML 150 ML IV (21:59)
[2021-08-29] MEDS: INSULIN DRIP PREMIX 100 UNIT/100 ML PLAST..BAG 6.7 UNIT IV (22:05)
[2021-08-29 23:33] LABS: BUN Creatinine Ratio 47.5 (6-22); Blood Urea Nitrogen 28 mg/dL (7-17); Calcium 8.1 mg/dL (8.4-10.2); Carbon Dioxide 17 mmol/L (22-32); Chloride 108 mmol/L (98-107); Estimated Glomerular Filt Rate > 60 mL/min (>60); Glucose 358 mg/dL (70-100); HEMOLYSIS < 15 (0-50); Potassium 4.2 mmol/L (3.4-5.1); Sodium 134 mmol/L (137-145)
[2021-08-30] VITALS (7 sets, daily range): BP systolic 97–138; BP diastolic 54–89; PULSE 95–108; RESP 16–20; TEMP 35.9–36.9; O2SAT 95–99
[2021-08-30] MEDS: DEXTROSE 5%-0.45% NS 1,000 ML 67.5 ML IV (01:15)
[2021-08-30] MEDS: POTASSIUM CHLORIDE IN WATER 10 MEQ/100 ML PIGGYBACK 100 MEQ IV ×4 (01:17→06:33)
[2021-08-30 01:46] LABS: BUN Creatinine Ratio 49.1 (6-22); Blood Urea Nitrogen 26 mg/dL (7-17); Calcium 8.2 mg/dL (8.4-10.2); Carbon Dioxide 18 mmol/L (22-32); Chloride 109 mmol/L (98-107); Estimated Glomerular Filt Rate > 60 mL/min (>60); Glucose 249 mg/dL (70-100); HEMOLYSIS < 15 (0-50); Sodium 133 mmol/L (137-145)
[2021-08-30 02:10] LABS: pH VBG 7.29 (7.33-7.43)
--- NOTE | 2021-08-30 02:16 | PC.NURSE ---
Called Dr. Crystal, informed that anion gap is 6, BS 232. Per Dr. Crystal use DKA protocol D5 1/2NS 67.5ml and stop the LR.
[2021-08-30 04:07] LABS: Add Manual Diff / Slide Review NO; Basophils Absolute Auto 100 /uL (0-100); Basophils Percent Auto 0.7 % (0-2); Eosinophils Absolute Auto 0 /uL (0-450); Hematocrit 33.2 % (36-46); Hemoglobin 11.4 g/dL (12.0-16.0); Lymphocytes Absolute Auto 2000 /uL (1100-4500); Lymphocytes Percent Auto 17.9 % (25-40); Mean Corpuscular HGB Conc 34.5 % (30-36); Mean Corpuscular Hemoglobin 30.6 PG (26-34); Mean Corpuscular Volume 88.8 fL (80-100); Monocytes Absolute Auto 1100 /uL (0-900); Monocytes Percent Auto 9.7 % (3-14); Neutrophils Absolute Auto 8000 /uL (1500-7000); Neutrophils Percent Auto 71.7 % (50-75); Platelet Count 340 X10^3/uL (150-400); Red Blood Cell Count 3.74 X10^6/uL (4.0-5.2); Red Cell Distribution Width 13.8 % (11.6-14.8); White Blood Cell Count 11.1 X10^3/uL (4.5-11.0)
[2021-08-30 04:10] LABS: Blood Urea Nitrogen 24 mg/dL (7-17); Calcium 8.1 mg/dL (8.4-10.2); Carbon Dioxide 20 mmol/L (22-32); Chloride 109 mmol/L (98-107); Estimated Glomerular Filt Rate > 60 mL/min (>60); Glucose 184 mg/dL (70-100); HEMOLYSIS < 15 (0-50); Magnesium 1.8 mg/dL (1.6-2.3); Potassium 4.2 mmol/L (3.4-5.1); Sodium 133 mmol/L (137-145)
[2021-08-30 04:21] LABS: pH VBG 7.27 (7.33-7.43)
[2021-08-30] MEDS: DEXTROSE 10 % IN WATER 1,000 ML 45 ML IV (05:21)
[2021-08-30 06:09] LABS: pH VBG 7.31 (7.33-7.43)
--- NOTE | 2021-08-30 06:43 | PC.NURSE ---
End of shift note. Care of patient from [id number]. AAOX4, tearful at times. States she is hungry, tolerating a clear liquid diet. ST 100. O2 Sats 96-98% on RA. Continues on insulin gtt 0.9units/kg/hr and D10W @ 45ml/hr per DKA protocol. Anion Gap at 0345 was 4. Up to BSC voiding with set up assist.
[2021-08-30 06:56] LABS: pH VBG 7.24 (7.33-7.43)
[2021-08-30 07:19] LABS: BUN Creatinine Ratio 48.9 (6-22); Blood Urea Nitrogen 23 mg/dL (7-17); Calcium 8.2 mg/dL (8.4-10.2); Carbon Dioxide 21 mmol/L (22-32); Chloride 110 mmol/L (98-107); Estimated Glomerular Filt Rate > 60 mL/min (>60); Glucose 133 mg/dL (70-100); HEMOLYSIS 17 (0-50); Potassium 4.1 mmol/L (3.4-5.1); Sodium 133 mmol/L (137-145)
[2021-08-30] MEDS: INSULIN LISPRO 100 UNIT/ML 3ML VIAL SUBCUT ×3 (08:42→12:34)
[2021-08-30] MEDS: INSULIN GLARGINE 100 UNIT/ML 3ML PEN 25 UNIT SUBCUT (08:42)
--- NOTE | 2021-08-30 10:00 | P.TELICUPN_ITS ---
Subjective Subjective Interval history: 31 yo W with T1DM admitted 08/29/21 with DKA. Infection work-up neg. Pt. started on insulin drip. Recent events: AG closed, patient transitioned from insulin drip to SQ insulin Current Medications Current Medications Medications: Home Medications glucose 4 gram chewable tablet 4 gram PO Q15M PRN #30 tab 12/12/18 [Rx Confirmed 08/29/21] glucagon (human recombinant) 1 mg solution for injection (Glucagon Emergency Kit) 1 mg SUBCUT DIRECTED 02/16/19 [History Confirmed 08/29/21] insulin aspart U-100 100 unit/mL (3 mL) subcutaneous pen (Novolog Flexpen U-100 Insulin aspart) 10 unit SUBCUT AC 05/20/20 [History Confirmed 08/29/21] diphenhydramine HCl 50 mg capsule 50 mg PO BEDTIME PRN 09/29/20 [History Confirmed 08/29/21] insulin aspart U-100 100 unit/mL subcutaneous solution (Novolog U-100 Insulin aspart) 1 sliding scale dose SUBCUT USEASDIRECTD #10 ml 04/13/21 [Rx Confirmed 08/29/21] insulin glargine 100 unit/mL (3 mL) subcutaneous pen (Lantus Solostar U-100 Insulin) 25 unit (0.25 mL) SUBCUT BID 10 Days #5 ml 04/13/21 [Rx Confirmed 08/29/21] Visit Medications (administered) Generic Name Dose Route Start Last Admin Trade Name Freq PRN Reason Stop Dose Admin Heparin Sodium (Porcine) 50 unit 08/29/21 17:06 08/30/21 04:02 Heparin Flush (Cl/Picc/Mid-Line) 50 Unit/5 Ml Syringe IV 50 unit PRN PRN Administration Flush INSULIN DRIP PREMIX 100 unit in 100 mls @ 6 mls/hr 08/29/21 13:15 08/30/21 09:35 Myxredlin Drip Premix IV 0 units/hr TITRATE BLAISE 0 mls/hr Titration Protocol Dextrose 1,000 mls @ 0 mls/hr 08/30/21 05:15 08/30/21 05:21 D10w IV 45 mls/hr CONT BLAISE Administration Per Protocol Insulin Glargine 25 unit 08/30/21 09:00 08/30/21 08:42 Insulin Glargine 100 Unit/Ml 3ml Pen SUBCUT 25 unit BID BLAISE Administration Insulin Human Lispro 5 unit 08/30/21 07:45 08/30/21 08:42 Insulin Lispro 100 Unit/Ml 3ml Vial SUBCUT 5 unit AC BLAISE Administration Ketorolac Tromethamine 30 mg 08/29/21 15:22 08/29/21 16:13 Ketorolac 30 Mg/Ml Vial IV 09/01/21 15:21 30 mg Q6H PRN Administration Pain, Moderate (4-6) Tramadol HCl 50 mg 08/29/21 18:06 08/29/21 18:17 Tramadol 50 Mg Tablet PO 50 mg QID PRN Administration Pain, Moderate (4-6) Objective Labs Result Diagrams: 08/30/21 03:45 08/30/21 06:00 Labs: Laboratory Results - last 24 hr 08/29/21 08/29/21 08/29/21 12:20 12:20 12:20 WBC 7.2 RBC 4.76 Hgb 14.6 Hct 46.0 MCV 96.7 MCH 30.8 MCHC 31.8 RDW 13.3 Plt Count 429 H Neut % (Auto) 77.5 H Lymph % (Auto) 15.8 L [place] % (Auto) 5.6 Eos % (Auto) 0.2 L Baso % (Auto) 0.9 Neut # (Auto) 5600 Lymph # (Auto) 1100 [place] # (Auto) 400 Eos # (Auto) 0 Baso # (Auto) 100 VBG pH VBG pCO2 VBG pO2 VBG HCO3 VBG Total CO2 VBG O2 Saturation VBG Base Excess Sodium 126 L Potassium 5.6 H Chloride 89 L Carbon Dioxide 7 L* BUN 29 H Creatinine 0.79 Estimated GFR > 60 BUN/Creatinine Ratio 36.7 H Glucose 943 H* Lactate 1.2 Calcium 9.3 Magnesium Total Bilirubin 0.6 AST 32 ALT 24 Alkaline Phosphatase 230 H Total Protein 7.7 Albumin 4.5 Globulin 3.2 Albumin/Globulin Ratio 1.4 Procalcitonin 0.10 Serum , Qual Urine RBC Urine WBC Ur Squamous Epith Cells Urine Bacteria Ur Culture Indicated? Nasal Screen MRSA (PCR) Ketones 16.00 H SARS-CoV-2 (PCR) 08/29/21 08/29/21 08/29/21 12:20 12:32 13:41 WBC RBC Hgb Hct MCV MCH MCHC RDW Plt Count Neut % (Auto) Lymph % (Auto) [place] % (Auto) Eos % (Auto) Baso % (Auto) Neut # (Auto) Lymph # (Auto) [place] # (Auto) Eos # (Auto) Baso # (Auto) VBG pH 7.18 L* VBG pCO2 25.3 L VBG pO2 27 L VBG HCO3 9 L VBG Total CO2 10 L VBG O2 Saturation 37 L VBG Base Excess -19.0 L Sodium Potassium Chloride Carbon Dioxide BUN Creatinine Estimated GFR BUN/Creatinine Ratio Glucose Lactate Calcium Magnesium Total Bilirubin AST ALT Alkaline Phosphatase Total Protein Albumin Globulin Albumin/Globulin Ratio Procalcitonin Serum , Qual Negative Urine RBC 0-1/hpf Urine WBC None seen Ur Squamous Epith Cells None seen Urine Bacteria None seen Ur Culture Indicated? Cult not indicated Nasal Screen MRSA (PCR) Ketones SARS-CoV-2 (PCR) 08/29/21 08/29/21 08/29/21 15:00 16:00 16:23 WBC RBC Hgb Hct MCV MCH MCHC RDW Plt Count Neut % (Auto) Lymph % (Auto) [place] % (Auto) Eos % (Auto) Baso % (Auto) Neut # (Auto) Lymph # (Auto) [place] # (Auto) Eos # (Auto) Baso # (Auto) VBG pH VBG pCO2 VBG pO2 VBG HCO3 VBG Total CO2 VBG O2 Saturation VBG Base Excess Sodium 134 L Potassium 4.4 D Chloride 106 Carbon Dioxide 10 L BUN 28 H Creatinine 0.72 Estimated GFR > 60 BUN/Creatinine Ratio 38.9 H Glucose 638 H* 492 H* Lactate Calcium 8.4 Magnesium Total Bilirubin AST ALT Alkaline Phosphatase Total Protein Albumin Globulin Albumin/Globulin Ratio Procalcitonin Serum , Qual Urine RBC Urine WBC Ur Squamous Epith Cells Urine Bacteria Ur Culture Indicated? Nasal Screen MRSA (PCR) Ketones SARS-CoV-2 (PCR) Negative 08/29/21 08/29/21 08/29/21 18:33 21:33 21:35 WBC RBC Hgb Hct MCV MCH MCHC RDW Plt Count Neut % (Auto) Lymph % (Auto) [place] % (Auto) Eos % (Auto) Baso % (Auto) Neut # (Auto) Lymph # (Auto) [place] # (Auto) Eos # (Auto) Baso # (Auto) VBG pH 7.12 L* 7.20 L* VBG pCO2 29.7 L VBG pO2 51 H VBG HCO3 10 L VBG Total CO2 11 L VBG O2 Saturation 73 VBG Base Excess -20.0 L Sodium 132 L Potassium 4.4 Chloride 107 Carbon Dioxide 14 L BUN 28 H Creatinine 0.61 Estimated GFR > 60 BUN/Creatinine Ratio 45.9 H Glucose 401 H Lactate Calcium 8.0 L Magnesium Total Bilirubin AST ALT Alkaline Phosphatase Total Protein Albumin Globulin Albumin/Globulin Ratio Procalcitonin Serum , Qual Urine RBC Urine WBC Ur Squamous Epith Cells Urine Bacteria Ur Culture Indicated? Nasal Screen MRSA (PCR) Ketones SARS-CoV-2 (PCR) 08/29/21 08/29/21 08/30/21 23:10 23:11 01:25 WBC RBC Hgb Hct MCV MCH MCHC RDW Plt Count Neut % (Auto) Lymph % (Auto) [place] % (Auto) Eos % (Auto) Baso % (Auto) Neut # (Auto) Lymph # (Auto) [place] # (Auto) Eos # (Auto) Baso # (Auto) VBG pH 7.24 L VBG pCO2 VBG pO2 VBG HCO3 VBG Total CO2 VBG O2 Saturation VBG Base Excess Sodium 134 L 133 L Potassium 4.2 4.0 Chloride 108 H 109 H Carbon Dioxide 17 L 18 L BUN 28 H 26 H Creatinine 0.59 0.53 Estimated GFR > 60 > 60 BUN/Creatinine Ratio 47.5 H 49.1 H Glucose 358 H 249 H D Lactate Calcium 8.1 L 8.2 L Magnesium Total Bilirubin AST ALT Alkaline Phosphatase Total Protein Albumin Globulin Albumin/Globulin Ratio Procalcitonin Serum , Qual Urine RBC Urine WBC Ur Squamous Epith Cells Urine Bacteria Ur Culture Indicated? Nasal Screen MRSA (PCR) Ketones SARS-CoV-2 (PCR) 08/30/21 08/30/21 08/30/21 01:37 03:37 03:45 WBC 11.1 H D RBC 3.74 L Hgb 11.4 L Hct 33.2 L MCV 88.8 D MCH 30.6 MCHC 34.5 RDW 13.8 Plt Count 340 Neut % (Auto) 71.7 Lymph % (Auto) 17.9 L [place] % (Auto) 9.7 Eos % (Auto) 0.0 L Baso % (Auto) 0.7 Neut # (Auto) 8000 H Lymph # (Auto) 2000 [place] # (Auto) 1100 H Eos # (Auto) 0 Baso # (Auto) 100 VBG pH 7.29 L 7.27 L VBG pCO2 VBG pO2 VBG HCO3 VBG Total CO2 VBG O2 Saturation VBG Base Excess Sodium Potassium Chloride Carbon Dioxide BUN Creatinine Estimated GFR BUN/Creatinine Ratio Glucose Lactate Calcium Magnesium Total Bilirubin AST ALT Alkaline Phosphatase Total Protein Albumin Globulin Albumin/Globulin Ratio Procalcitonin Serum , Qual Urine RBC Urine WBC Ur Squamous Epith Cells Urine Bacteria Ur Culture Indicated? Nasal Screen MRSA (PCR) Ketones SARS-CoV-2 (PCR) 08/30/21 08/30/21 08/30/21 03:45 03:50 05:57 WBC RBC Hgb Hct MCV MCH MCHC RDW Plt Count Neut % (Auto) Lymph % (Auto) [place] % (Auto) Eos % (Auto) Baso % (Auto) Neut # (Auto) Lymph # (Auto) [place] # (Auto) Eos # (Auto) Baso # (Auto) VBG pH 7.31 L VBG pCO2 VBG pO2 VBG HCO3 VBG Total CO2 VBG O2 Saturation VBG Base Excess Sodium 133 L Potassium 4.2 Chloride 109 H Carbon Dioxide 20 L BUN 24 H Creatinine 0.50 L Estimated GFR > 60 BUN/Creatinine Ratio 48.0 H Glucose 184 H Lactate Calcium 8.1 L Magnesium 1.8 Total Bilirubin AST ALT Alkaline Phosphatase Total Protein Albumin Globulin Albumin/Globulin Ratio Procalcitonin Serum , Qual Urine RBC Urine WBC Ur Squamous Epith Cells Urine Bacteria Ur Culture Indicated? Nasal Screen MRSA (PCR) Negative for mrsa Ketones SARS-CoV-2 (PCR) 08/30/21 06:00 WBC RBC Hgb Hct MCV MCH MCHC RDW Plt Count Neut % (Auto) Lymph % (Auto) [place] % (Auto) Eos % (Auto) Baso % (Auto) Neut # (Auto) Lymph # (Auto) [place] # (Auto) Eos # (Auto) Baso # (Auto) VBG pH VBG pCO2 VBG pO2 VBG HCO3 VBG Total CO2 VBG O2 Saturation VBG Base Excess Sodium 133 L Potassium 4.1 Chloride 110 H Carbon Dioxide 21 L BUN 23 H Creatinine 0.47 L Estimated GFR > 60 BUN/Creatinine Ratio 48.9 H Glucose 133 H Lactate Calcium 8.2 L Magnesium Total Bilirubin AST ALT Alkaline Phosphatase Total Protein Albumin Globulin Albumin/Globulin Ratio Procalcitonin Serum , Qual Urine RBC Urine WBC Ur Squamous Epith Cells Urine Bacteria Ur Culture Indicated? Nasal Screen MRSA (PCR) Ketones SARS-CoV-2 (PCR) Exam Vital Signs (past 8 hours): - 08/30/21 04:00 08/30/21 06:00 08/30/21 08:00 Temperature 97.5 F L 97.3 F L 96.6 F L Pulse Rate 99 H 96 H 95 H Respiratory Rate 16 16 17 Blood Pressure 135/84 138/89 125/86 Pulse Oximetry 99 96 95 08/30/21 08:05 Temperature Pulse Rate Respiratory Rate Blood Pressure Pulse Oximetry 96 Oxygen Delivery Method Room Air Oxygen Flow Rate 0 Assessment & Plan Assessment & Plan narrative: Assessment DKA-resolved T1DM Plan patient transitioned from insulin drip to SQ insulin continue to monitor BG and adjust SQ insulin as needed for BG control Agree with transferring patient out of ICU CCT spent 35 min Time Spent With Patient Critical Care time: I spent a total of [] minutes of critical care time on this patient's care today; this time is exclusive of procedural time.
--- NOTE | 2021-08-30 10:44 | PM.DS.1 ---
History of Present Illness History of Present Illness Date Patient Seen: 08/30/21 Time Patient Seen: 10:45 Chief complaint: States DKA Narrative: Romi Jimenes is a 31-year-old type 1 diabetic female well known to staff with a history of multiple admissions for diabetic ketoacidosis, was in her usual state of health when she started to have significant nausea and vomiting as well as abdominal pain this morning. She reports some abdominal pain over the past two weeks. She reports her blood sugars have been high over the last couple of days. She reports no recent changes to her insulin. In the emergency room, the patient was tachycardic, but the remainder of her vital signs were unremarkable. CBC was unremarkable, chemistries revealed a significant metabolic acidosis with anion gap, with a CO2 of 7, anion gap of 30. She was started on an insulin infusion and IV fluids. Corrected sodium is within normal limits. Procalcitonin was negative. Urine was negative. Urinalysis showed no evidence of infection. COVID-19 testing was negative. She was admitted to the ICU for further management of DKA. Discharge Providers Provider Date of admission: 08/29/21 13:27 Discharge Date: 08/30/21 Primary care physician: Maria Ines Limon DO Consults: 08/29/21 15:22 Consult to Tele-dyer assistant Routine Comment: Consulting Provider: [facility] [employer] Reason for consultation: [employer] services 08/29/21 16:44 Consult to Dietitian, Adult Routine Comment: Reason For Exam: low BMI, repeat DKA Consult to [place] Ripper Routine Comment: Discharge provider: Julio Cesar Weinberg DO Summary Hospital Course Discharge Diagnosis: 1. Diabetic ketoacidosis, acute, present on admission, resolved Hospital Course: Ms. Jimenes was again admitted with DKA. She was found to have elevated blood sugars and an anion gap. She improved much more quickly than expected with IV insulin and IV fluids and the morning of discharge her blood sugars had improved and she was started on her home medications. She was without pain, fever, nausea at the time of discharge. She was adequately tolerating a diet at the time of discharge. infectious workup was unremarkable as to a cause of her DKA. She had mild enteritis on CT though no symptoms of this clinically. No changes are recommended to her home medications at this time. Exam Vital Signs (past 8 hours): - 08/30/21 04:00 08/30/21 06:00 08/30/21 08:00 Temperature 97.5 F L 97.3 F L 96.6 F L Pulse Rate 99 H 96 H 95 H Respiratory Rate 16 16 17 Blood Pressure 135/84 138/89 125/86 Pulse Oximetry 99 96 95 08/30/21 08:05 Temperature Pulse Rate Respiratory Rate Blood Pressure Pulse Oximetry 96 Oxygen Delivery Method Room Air Oxygen Flow Rate 0 Narrative Exam Narrative: GENERAL APPEARANCE:? Thin young female, pale, no acute distress SKIN: Inspection of the skin reveals no rashes, ulcerations or petechiae.? Tattoos are present. HEENT:? Normocephalic atraumatic, extraocular muscles are intact, oropharynx is clear and mucous membranes are moist, neck is supple without adenopathy. NECK: Supple and symmetric. There was no thyroid enlargement, and no tenderness, or masses were felt. CHEST: Normal AP diameter and normal contour without any kyphoscoliosis. LUNGS: Auscultation of the lungs revealed no wheezes, rhonchi, or rales. CARDIOVASCULAR: RRR without any murmurs, gallops, rubs. Peripheral pulses were 2+ and symmetric. ABDOMEN: Soft, nontender, nondistended MUSCULOSKELETAL: There was no tenderness or effusions noted. Muscle strength and tone were normal. EXTREMITIES: No cyanosis, clubbing or edema. NEUROLOGIC: Alert and oriented x 3.? Strength is +5/5 in the Upper Extremities and Lower Extremities Bilaterally. Sensation to touch was normal. Objective Labs Result Diagrams: 08/30/21 03:45 08/30/21 06:00 Labs: Laboratory Results - last 24 hr 08/29/21 08/29/21 08/29/21 12:20 12:20 12:20 WBC 7.2 RBC 4.76 Hgb 14.6 Hct 46.0 MCV 96.7 MCH 30.8 MCHC 31.8 RDW 13.3 Plt Count 429 H Neut % (Auto) 77.5 H Lymph % (Auto) 15.8 L [place] % (Auto) 5.6 Eos % (Auto) 0.2 L Baso % (Auto) 0.9 Neut # (Auto) 5600 Lymph # (Auto) 1100 [place] # (Auto) 400 Eos # (Auto) 0 Baso # (Auto) 100 VBG pH VBG pCO2 VBG pO2 VBG HCO3 VBG Total CO2 VBG O2 Saturation VBG Base Excess Sodium 126 L Potassium 5.6 H Chloride 89 L Carbon Dioxide 7 L* BUN 29 H Creatinine 0.79 Estimated GFR > 60 BUN/Creatinine Ratio 36.7 H Glucose 943 H* Lactate 1.2 Calcium 9.3 Magnesium Total Bilirubin 0.6 AST 32 ALT 24 Alkaline Phosphatase 230 H Total Protein 7.7 Albumin 4.5 Globulin 3.2 Albumin/Globulin Ratio 1.4 Procalcitonin 0.10 Serum , Qual Urine RBC Urine WBC Ur Squamous Epith Cells Urine Bacteria Ur Culture Indicated? Nasal Screen MRSA (PCR) Ketones 16.00 H SARS-CoV-2 (PCR) 08/29/21 08/29/21 08/29/21 12:20 12:32 13:41 WBC RBC Hgb Hct MCV MCH MCHC RDW Plt Count Neut % (Auto) Lymph % (Auto) [place] % (Auto) Eos % (Auto) Baso % (Auto) Neut # (Auto) Lymph # (Auto) [place] # (Auto) Eos # (Auto) Baso # (Auto) VBG pH 7.18 L* VBG pCO2 25.3 L VBG pO2 27 L VBG HCO3 9 L VBG Total CO2 10 L VBG O2 Saturation 37 L VBG Base Excess -19.0 L Sodium Potassium Chloride Carbon Dioxide BUN Creatinine Estimated GFR BUN/Creatinine Ratio Glucose Lactate Calcium Magnesium Total Bilirubin AST ALT Alkaline Phosphatase Total Protein Albumin Globulin Albumin/Globulin Ratio Procalcitonin Serum , Qual Negative Urine RBC 0-1/hpf Urine WBC None seen Ur Squamous Epith Cells None seen Urine Bacteria None seen Ur Culture Indicated? Cult not indicated Nasal Screen MRSA (PCR) Ketones SARS-CoV-2 (PCR) 08/29/21 08/29/21 08/29/21 15:00 16:00 16:23 WBC RBC Hgb Hct MCV MCH MCHC RDW Plt Count Neut % (Auto) Lymph % (Auto) [place] % (Auto) Eos % (Auto) Baso % (Auto) Neut # (Auto) Lymph # (Auto) [place] # (Auto) Eos # (Auto) Baso # (Auto) VBG pH VBG pCO2 VBG pO2 VBG HCO3 VBG Total CO2 VBG O2 Saturation VBG Base Excess Sodium 134 L Potassium 4.4 D Chloride 106 Carbon Dioxide 10 L BUN 28 H Creatinine 0.72 Estimated GFR > 60 BUN/Creatinine Ratio 38.9 H Glucose 638 H* 492 H* Lactate Calcium 8.4 Magnesium Total Bilirubin AST ALT Alkaline Phosphatase Total Protein Albumin Globulin Albumin/Globulin Ratio Procalcitonin Serum , Qual Urine RBC Urine WBC Ur Squamous Epith Cells Urine Bacteria Ur Culture Indicated? Nasal Screen MRSA (PCR) Ketones SARS-CoV-2 (PCR) Negative 08/29/21 08/29/21 08/29/21 18:33 21:33 21:35 WBC RBC Hgb Hct MCV MCH MCHC RDW Plt Count Neut % (Auto) Lymph % (Auto) [place] % (Auto) Eos % (Auto) Baso % (Auto) Neut # (Auto) Lymph # (Auto) [place] # (Auto) Eos # (Auto) Baso # (Auto) VBG pH 7.12 L* 7.20 L* VBG pCO2 29.7 L VBG pO2 51 H VBG HCO3 10 L VBG Total CO2 11 L VBG O2 Saturation 73 VBG Base Excess -20.0 L Sodium 132 L Potassium 4.4 Chloride 107 Carbon Dioxide 14 L BUN 28 H Creatinine 0.61 Estimated GFR > 60 BUN/Creatinine Ratio 45.9 H Glucose 401 H Lactate Calcium 8.0 L Magnesium Total Bilirubin AST ALT Alkaline Phosphatase Total Protein Albumin Globulin Albumin/Globulin Ratio Procalcitonin Serum , Qual Urine RBC Urine WBC Ur Squamous Epith Cells Urine Bacteria Ur Culture Indicated? Nasal Screen MRSA (PCR) Ketones SARS-CoV-2 (PCR) 08/29/21 08/29/21 08/30/21 23:10 23:11 01:25 WBC RBC Hgb Hct MCV MCH MCHC RDW Plt Count Neut % (Auto) Lymph % (Auto) [place] % (Auto) Eos % (Auto) Baso % (Auto) Neut # (Auto) Lymph # (Auto) [place] # (Auto) Eos # (Auto) Baso # (Auto) VBG pH 7.24 L VBG pCO2 VBG pO2 VBG HCO3 VBG Total CO2 VBG O2 Saturation VBG Base Excess Sodium 134 L 133 L Potassium 4.2 4.0 Chloride 108 H 109 H Carbon Dioxide 17 L 18 L BUN 28 H 26 H Creatinine 0.59 0.53 Estimated GFR > 60 > 60 BUN/Creatinine Ratio 47.5 H 49.1 H Glucose 358 H 249 H D Lactate Calcium 8.1 L 8.2 L Magnesium Total Bilirubin AST ALT Alkaline Phosphatase Total Protein Albumin Globulin Albumin/Globulin Ratio Procalcitonin Serum , Qual Urine RBC Urine WBC Ur Squamous Epith Cells Urine Bacteria Ur Culture Indicated? Nasal Screen MRSA (PCR) Ketones SARS-CoV-2 (PCR) 08/30/21 08/30/21 08/30/21 01:37 03:37 03:45 WBC 11.1 H D RBC 3.74 L Hgb 11.4 L Hct 33.2 L MCV 88.8 D MCH 30.6 MCHC 34.5 RDW 13.8 Plt Count 340 Neut % (Auto) 71.7 Lymph % (Auto) 17.9 L [place] % (Auto) 9.7 Eos % (Auto) 0.0 L Baso % (Auto) 0.7 Neut # (Auto) 8000 H Lymph # (Auto) 2000 [place] # (Auto) 1100 H Eos # (Auto) 0 Baso # (Auto) 100 VBG pH 7.29 L 7.27 L VBG pCO2 VBG pO2 VBG HCO3 VBG Total CO2 VBG O2 Saturation VBG Base Excess Sodium Potassium Chloride Carbon Dioxide BUN Creatinine Estimated GFR BUN/Creatinine Ratio Glucose Lactate Calcium Magnesium Total Bilirubin AST ALT Alkaline Phosphatase Total Protein Albumin Globulin Albumin/Globulin Ratio Procalcitonin Serum , Qual Urine RBC Urine WBC Ur Squamous Epith Cells Urine Bacteria Ur Culture Indicated? Nasal Screen MRSA (PCR) Ketones SARS-CoV-2 (PCR) 08/30/21 08/30/21 08/30/21 03:45 03:50 05:57 WBC RBC Hgb Hct MCV MCH MCHC RDW Plt Count Neut % (Auto) Lymph % (Auto) [place] % (Auto) Eos % (Auto) Baso % (Auto) Neut # (Auto) Lymph # (Auto) [place] # (Auto) Eos # (Auto) Baso # (Auto) VBG pH 7.31 L VBG pCO2 VBG pO2 VBG HCO3 VBG Total CO2 VBG O2 Saturation VBG Base Excess Sodium 133 L Potassium 4.2 Chloride 109 H Carbon Dioxide 20 L BUN 24 H Creatinine 0.50 L Estimated GFR > 60 BUN/Creatinine Ratio 48.0 H Glucose 184 H Lactate Calcium 8.1 L Magnesium 1.8 Total Bilirubin AST ALT Alkaline Phosphatase Total Protein Albumin Globulin Albumin/Globulin Ratio Procalcitonin Serum , Qual Urine RBC Urine WBC Ur Squamous Epith Cells Urine Bacteria Ur Culture Indicated? Nasal Screen MRSA (PCR) Negative for mrsa Ketones SARS-CoV-2 (PCR) 08/30/21 06:00 WBC RBC Hgb Hct MCV MCH MCHC RDW Plt Count Neut % (Auto) Lymph % (Auto) [place] % (Auto) Eos % (Auto) Baso % (Auto) Neut # (Auto) Lymph # (Auto) [place] # (Auto) Eos # (Auto) Baso # (Auto) VBG pH VBG pCO2 VBG pO2 VBG HCO3 VBG Total CO2 VBG O2 Saturation VBG Base Excess Sodium 133 L Potassium 4.1 Chloride 110 H Carbon Dioxide 21 L BUN 23 H Creatinine 0.47 L Estimated GFR > 60 BUN/Creatinine Ratio 48.9 H Glucose 133 H Lactate Calcium 8.2 L Magnesium Total Bilirubin AST ALT Alkaline Phosphatase Total Protein Albumin Globulin Albumin/Globulin Ratio Procalcitonin Serum , Qual Urine RBC Urine WBC Ur Squamous Epith Cells Urine Bacteria Ur Culture Indicated? Nasal Screen MRSA (PCR) Ketones SARS-CoV-2 (PCR) PFSH Medical History DKA (diabetic ketoacidoses) History of pyelonephritis Irregular menstrual cycle Migraine headache Nephrolithiasis Noncompliance w/medication treatment due to intermit use of medication Type 1 diabetes mellitus Surgical History History of ureter stent Hx of cataract surgery Hx of local excision of skin lesion Status post laser lithotripsy of ureteral calculus [place] teeth extracted Family History Father In good health Mother Cardiac disease Social History details: Engaged household members: significant other and family Smoking Status: Never smoker alcohol intake: never Discharge Plan Discharge Plan Patient Disposition: Home Provider Discharge Comment: You were admitted to the hospital with DKA. Improved with insulin infusion, ready for discharge home. Discharge orders & Medications Prescriptions: Continued glucose 4 gram tablet,chewable 4 gram PO Q15M PRN (Reason: hypoglycemia) Qty: 30 0RF Rx Instructions: until response Glucagon Emergency Kit (human) 1 mg recon soln 1 mg subcut DIRECTED 0RF insulin aspart U-100 [Novolog Flexpen U-100 Insulin] 100 unit/mL (3 mL) insulin pen 10 unit SUBCUT AC 0RF Rx Instructions: Pt states she uses 10 units plus a sliding scale based on her blood sugar. She is vague in response to exact # over 10 units. diphenhydramine HCl 50 mg Capsule 50 mg PO BEDTIME PRN (Reason: Sleep) 0RF Rx Instructions: for itching and sleep Lantus Solostar U-100 Insulin 100 unit/mL (3 mL) Insulin Pen 25 unit SUBCUT BID 10 Days Qty: 5 2RF insulin aspart U-100 [Novolog U-100 Insulin aspart] 100 unit/mL solution 1 sliding scale dose SUBCUT USEASDIRECTD Qty: 10 2RF Rx Instructions: USE SLIDING SCALE PLS Follow up/Referrals: Maria Ines Limon, [Primary Care Provider] - Diet/Activity/Treatments Diet: Diet as Tolerated and Carb-consistent/Diabetic Activity: As tolerated Visit Report/Discharge Packet Instructions: DI for Diabetic Ketoacidosis Discharge Data Primary Care Provider: Maria Ines Limon
--- NOTE | 2021-08-30 12:09 | PC.NURSE ---
Addendum entered by Amee Esparza R.N. 08/30/21 13:10: Dc teaching completed. Original Note: Am shift Pt is less tearful this AM. Downgraded to floor care status. Pt pleased that she is able to advance diet. Denies pain. Requesting to sleep in, Medicated and DC pending now that CBG stabilized.
== END 2021-08-30 13:55 | disposition home or self-care (01) | DRG 420 ==
LOC: ED 12:25 → AC 13:34 → ICU 15:31 → AC 11-07 09:34
PROVIDERS: Internal Medicine Critical Care Medicine; Admitting Provider Internal Medicine; Emergency Provider Emergency Medicine; PCP Student in an Organized Health Care Education/Training Program; Referring Provider Emergency Medicine; Visit Provider Internal Medicine
DX: E10.10 Type 1 diabetes mellitus with ketoacidosis without coma (principal); E87.5 Hyperkalemia; R00.0 Tachycardia, unspecified; Z20.822 Contact with and (suspected) exposure to COVID-19
CPT/HCPCS: 36415; 71045; 74177; 80048; 80053; 81003; 81015; 81025; 82009; 82805; 82947; 82962; 83605; 83735; 83986; 84145; 84703; 85025; 87635; 87797; 93005; 96361; 96374; 96375; 99284; 99291; 99292; C9803; G0378; J1200; J1642; J1815; J1885; J2405; J2930

== ENCOUNTER 2021-09-19 19:55 | Observation (INO) | payer OTHER, MEDICAID, SELFPAY ==
[2021-08-29 16:40] VITALS: BMI 18.7
[2021-09-19] VITALS (14 sets, daily range): BP systolic 83–189; BP diastolic 49–120; PULSE 105–140; RESP 28; O2SAT 94–100; BMI 18.8
--- NOTE | 2021-09-19 20:11 | DI.RAD.S_ITS ---
PROCEDURE: XR HIP W PEL IF DONE RT 2V INDICATIONS: glf, unable to move leg without extreme pain TECHNIQUE: AP pelvis with lateral view of the right hip. COMPARISON: None. FINDINGS: Bones: No fractures or dislocations of the right hip. There is a mildly displaced fracture of the right superior pubic ramus medially. No suspicious bony lesions. Soft tissues: The visualized bowel gas pattern is normal. No suspicious soft tissue calcifications. IMPRESSION: 1. Mildly displaced fracture of the right superior pubic ramus medially. Consider CT for evaluation of possible additional fractures. Dictated by: Jesus Winston M.D. on 09/19/2021 at 21:57 Approved by: Jesus Winston M.D. on 09/19/2021 at 21:59
--- NOTE | 2021-09-19 20:33 | ED.FALL ---
HPI - Fall General Chief Complaint: Fall Stated Complaint: GLF / Lt hip pain Time Seen by Provider: 09/19/21 20:23 Source: patient and EMS Mode of arrival: EMS History of Present Illness HPI Narrative: 31-year-old woman with very brittle type 1 diabetes multiple hospital admits for DKA been doing remarkably well as actually gaining weight checking sugars and taking her insulin. She tripped today landing on her right hip and is having severe right hip and right iliac wing tenderness. No palpation tenderness along midline lumbar spine. No other complaints. She is most comfortable with her knee and hip both held in flexion. She is neurovascularly intact distal. She does note that she has been having balance issues since of recent ankle surgery. Related Data Home Medications Medication Instructions Recorded Confirmed glucagon (human recombinant) 1 mg 1 mg SUBCUT DIRECTED 02/16/19 09/20/21 solution for injection (Glucagon Emergency Kit) insulin aspart U-100 100 unit/mL 10 unit SUBCUT AC 05/20/20 09/20/21 (3 mL) subcutaneous pen (Novolog Flexpen U-100 Insulin aspart) diphenhydramine HCl 50 mg capsule 50 mg PO BEDTIME PRN 09/29/20 09/20/21 Previous Rx's Medication Instructions Recorded glucose 4 gram chewable tablet 4 gram PO Q15M PRN #30 tab 12/12/18 insulin aspart U-100 100 unit/mL 1 sliding scale dose SUBCUT 04/13/21 subcutaneous solution (Novolog USEASDIRECTD #10 ml U-100 Insulin aspart) insulin glargine 100 unit/mL (3 25 unit (0.25 mL) SUBCUT BID 10 04/13/21 mL) subcutaneous pen (Lantus Days #5 ml Solostar U-100 Insulin) Allergies Allergy/AdvReac Type Severity Reaction Status Date / Time abdalla [ABDALLA] Allergy Intermediate Hives, Verified 08/29/21 12:11 pruritus iodine [IODINE] Allergy Intermediate rash, itchy Verified 08/29/21 12:11 morphine Allergy Intermediate Difficulty Verified 08/29/21 12:11 Breathing shellfish derived Allergy Intermediate rash Verified 08/29/21 12:11 [SHELLFISH DERIVED] adhesive [ADHESIVE] Allergy Unknown tape Verified 08/29/21 12:11 latex [LATEX] Allergy Unknown Hives Verified 08/29/21 12:11 Review of Systems Review of Systems Narrative: Pertinent positive and negative findings as per HPI Remainder of review of systems is otherwise unremarkable for Constitutional: Fevers, chills, weakness ENT: No sore throat, neck pain, ear pain CV: Chest pain, palpitations, Respiratory: Cough, wheeze, dyspnea GI: Nausea, vomiting, diarrhea, : Dysuria, hematuria, Patient History Medical History DKA (diabetic ketoacidoses) History of pyelonephritis Irregular menstrual cycle Migraine headache Nephrolithiasis Noncompliance w/medication treatment due to intermit use of medication Type 1 diabetes mellitus Surgical History History of ureter stent Hx of cataract surgery Hx of local excision of skin lesion Status post laser lithotripsy of ureteral calculus [place] teeth extracted Family History Father In good health Mother Cardiac disease Social History details: Engaged household members: significant other and family Smoking Status: Never smoker alcohol intake: never Smoking Status: Never smoker alcohol intake frequency: holidays/special occasions only Substance Use Type: does not use Exam Initial Vital Signs Initial Vital Signs: Vital Signs Pulse Rate 112 H 09/19/21 20:04 Pulse Oximetry 100 09/19/21 20:04 General: Healthy appearing, in no acute distress. Able to give a complete and coherent history. Well-nourished well-developed (dramatic change and improvement from prior visits) HEENT: Moist mucous membranes, normal sclera with reactive pupils, Neck: supple Respiratory: Lungs are clear to auscultation, no wheezing no rales no rhonchi. Full and symmetrical air movement Cardiac: Regular rate and rhythm no murmurs no bruits Abdomen: Soft, nontender, good bowel tones, no flank pain Pelvis: Tender with any manipulation of the right sacroiliac region but not with the right ischium. Unable to externally rotate her hip or extend her leg without significant pain. Skin: Warm and dry, no rashes Neurologic: Grossly neurologically intact with no obvious asymmetries or abnormalities Extremities: well perfused Psych: Cooperative, appropriate insight and affect Course Orders Ordered: ED Orders 09/19/21 20:11 XR hip w pel if done RT 2V Stat 09/19/21 21:01 CT pelvis wo con Stat 09/19/21 21:27 Complete Blood Count AUTO DIFF Stat Comprehensive Metabolic Panel Stat 09/20/21 00:01 Urine Microscopic Stat Diphenhydramine HCl (Diphenhydramine 25 Mg Tablet) 25 mg PO Q6HR PRN PRN Reason: Itching Hydromorphone HCl (Hydromorphone 0.5 Mg Inj) 0.5 mg IV Q15MIN PRN PRN Reason: Pain, Last Admin: 09/20/21 04:38 Dose: 0.5 mg Documented by: Admin: 09/19/21 23:13 Dose: 0.5 mg Documented by: Admin: 09/19/21 22:11 Dose: 0.5 mg Documented by: Admin: 09/19/21 21:25 Dose: 0.5 mg Documented by: CLARIBEL Sodium Chloride (Normal Saline 0.9%) 1,000 mls @ 150 mls/hr IV CONT [facility] Last Admin: 09/20/21 04:36 Dose: 150 mls/hr Documented by: Infusion: 09/20/21 04:36 Dose: 0 mls/hr Documented by: Infusion: 09/20/21 02:08 Dose: 0 mls/hr Documented by: Admin: 09/19/21 21:25 Dose: 150 mls/hr Documented by: CLARIBEL Insulin Glargine (Insulin Glargine 100 Unit/Ml 3ml Pen) 25 unit SUBCUT BID [facility] Last Admin: 09/20/21 01:53 Dose: 25 unit Documented by: ARABELLA Cosigned by: CHRIS Insulin Human Lispro (Insulin Lispro 100 Unit/Ml 3ml Vial) 8 unit SUBCUT QACBREAK [facility] Last Admin: 09/20/21 01:53 Dose: 8 unit Documented by: ARABELLA Cosigned by: CHRIS Discontinued Medications Diphenhydramine HCl (Diphenhydramine 50 Mg/Ml Vial) 25 mg IV NOW ONE Stop: 09/19/21 23:58 Last Admin: 09/20/21 00:05 Dose: 25 mg Documented by: CLARIBEL Insulin Human Lispro (Insulin Lispro 100 Unit/Ml 3ml Vial) 8 unit SUBCUT AC BLAISE Ketorolac Tromethamine (Ketorolac 30 Mg/Ml Vial) 15 mg IV NOW ONE Stop: 09/20/21 00:59 Last Admin: 09/20/21 01:06 Dose: 15 mg Documented by: CLARIBEL Oxycodone/Acetaminophen (Oxycodone/Acetaminophen 5/325 Tablet) 1 tab PO NOW ONE Stop: 09/20/21 00:59 Last Admin: 09/20/21 01:06 Dose: 1 tab Documented by: CLARIBEL Vital Signs Vital signs: Vital Signs - 8 hr 09/19/21 21:25 09/19/21 21:30 09/19/21 22:00 Pulse Rate 112 H 112 H 113 H Blood Pressure 134/88 Pulse Oximetry 99 99 96 09/19/21 22:30 09/19/21 23:00 09/19/21 23:30 Pulse Rate 105 H 109 H 114 H Blood Pressure 92/53 L 91/52 L 93/50 L Pulse Oximetry 94 98 97 09/19/21 23:32 09/19/21 23:33 09/19/21 23:52 Pulse Rate 111 H 117 H 140 H Blood Pressure 83/49 L 86/51 L 131/87 Pulse Oximetry 98 98 94 09/20/21 00:00 09/20/21 00:30 Pulse Rate 120 H 116 H Blood Pressure 129/84 128/80 Pulse Oximetry 96 96 - Fall Lab Data Result diagrams: 09/19/21 21:27 09/19/21 21:27 Labs: Lab Results 09/19/21 09/19/21 09/20/21 Range/Units 21:27 21:27 00:01 WBC 7.7 (4.5-11.0) X10^3/uL RBC 4.17 (4.0-5.2) X10^6/uL Hgb 12.9 (12.0-16.0) g/dL Hct 38.4 (36-46) % MCV 92.0 (80-100) fL MCH 30.9 (26-34) PG MCHC 33.6 (30-36) % RDW 13.3 (11.6-14.8) % Plt Count 296 (150-400) X10^3/uL Neut % (Auto) 78.9 H (50-75) % Lymph % (Auto) 12.9 L (25-40) % [place] % (Auto) 7.1 (3-14) % Eos % (Auto) 0.4 L (2-4) % Baso % (Auto) 0.7 (0-2) % Neut # (Auto) 6100 (6584-0798) /uL Lymph # (Auto) 1000 L (1557-6858) /uL [place] # (Auto) 500 (0-900) /uL Eos # (Auto) 0 (0-450) /uL Baso # (Auto) 100 (0-100) /uL Sodium 133 L (137-145) mmol/L Potassium 4.4 (3.4-5.1) mmol/L Chloride 96 L (98-107) mmol/L Carbon Dioxide 22 (22-32) mmol/L BUN 23 H (7-17) mg/dL Creatinine 0.62 (0.52-1.04) mg/dL Estimated GFR > 60 (>60) mL/min BUN/Creatinine Ratio 37.1 H (6-22) Glucose 462 H (70-100) mg/dL Calcium 8.7 (8.4-10.2) mg/dL Total Bilirubin 0.6 (0.2-1.3) mg/dL AST 30 (14-36) IU/L ALT 35 H (<35) IU/L Alkaline Phosphatase 214 H (38-126) U/L Total Protein 6.5 (6.3-8.2) g/dL Albumin 3.7 (3.5-5.0) g/dL Globulin 2.8 (1.7-4.1) g/dL Albumin/Globulin Ratio 1.3 (1.0-2.8) Urine RBC 1-5/hpf (0-5/HPF) Urine WBC 0-1/hpf (0-5/HPF) Ur Squamous Epith Cells 0-1 /hpf (0-5/HPF) Urine Bacteria None seen (None) Urine Yeast 0-1/hpf (None) Ur Culture Indicated? Cult not indicated SARS-CoV-2 (PCR) (Negative) 09/20/21 Range/Units 01:19 WBC (4.5-11.0) X10^3/uL RBC (4.0-5.2) X10^6/uL Hgb (12.0-16.0) g/dL Hct (36-46) % MCV (80-100) fL MCH (26-34) PG MCHC (30-36) % RDW (11.6-14.8) % Plt Count (150-400) X10^3/uL Neut % (Auto) (50-75) % Lymph % (Auto) (25-40) % [place] % (Auto) (3-14) % Eos % (Auto) (2-4) % Baso % (Auto) (0-2) % Neut # (Auto) (5697-6546) /uL Lymph # (Auto) (1984-4628) /uL [place] # (Auto) (0-900) /uL Eos # (Auto) (0-450) /uL Baso # (Auto) (0-100) /uL Sodium (137-145) mmol/L Potassium (3.4-5.1) mmol/L Chloride (98-107) mmol/L Carbon Dioxide (22-32) mmol/L BUN (7-17) mg/dL Creatinine (0.52-1.04) mg/dL Estimated GFR (>60) mL/min BUN/Creatinine Ratio (6-22) Glucose (70-100) mg/dL Calcium (8.4-10.2) mg/dL Total Bilirubin (0.2-1.3) mg/dL AST (14-36) IU/L ALT (<35) IU/L Alkaline Phosphatase (38-126) U/L Total Protein (6.3-8.2) g/dL Albumin (3.5-5.0) g/dL Globulin (1.7-4.1) g/dL Albumin/Globulin Ratio (1.0-2.8) Urine RBC (0-5/HPF) Urine WBC (0-5/HPF) Ur Squamous Epith Cells (0-5/HPF) Urine Bacteria (None) Urine Yeast (None) Ur Culture Indicated? SARS-CoV-2 (PCR) Negative (Negative) Point of Care Testing Glucose POC 369 Urine Dip Bedside Urine Glucose 1000 mg/dl Bedside Urine Bilirubin - Negative Bedside Urine Ketone ++ 40 Urine Specific [place] 1.010 Bedside Urine Occult Blood + Bedside Urine pH 6.0 Bedside Urine Protein ++ 100 Bedside Urine Urobilinogen - Negative Bedside Urine Nitrite - Negative Bedside Urine Leukocytes - Negative Esterase Imaging Data XR pelvis: Radiologist's Impression: FINDINGS:? ? Bones:? No fractures or dislocations of the right hip.? There is a mildly displaced fracture of the right superior pubic ramus medially.? No suspicious bony lesions.? ? Soft tissues:? The visualized bowel gas pattern is normal.? No suspicious soft tissue calcifications.? ? ? IMPRESSION:? ? 1. Mildly displaced fracture of the right superior pubic ramus medially.? Consider CT for evaluation of possible additional fractures. ? ? ? Dictated by: Jesus Winston M.D. on 09/19/2021 at 21:57 ? ? CT pelvis: Radiologist's Impression: FINDINGS:? Image quality:? Excellent.? ? Bones:? There are minimally displaced fractures of the right superior and inferior pubic rami.? No definite sacral fracture identified.? Hips demonstrate no fracture or dislocation. ? Soft tissues:? There is marked distention of the urinary bladder.? There is suggestion of a small amount of intraperitoneal free fluid in the pelvis. ? ? IMPRESSION:? ? 1. Minimally displaced fractures of the right superior and inferior pubic rami. ? 2. Marked distention of the urinary bladder suggestive of bladder outlet obstruction or urinary tension. ? ? ? Dictated by: Jesus Winston M.D. on 09/19/2021 at 23:07 ? ? MDM Narrative Medical decision making narrative: 31-year-old type 1 diabetic with mechanical fall landing on her right buttock with minimally displaced fractures of the right superior and inferior pubic rami. No hip fracture. She is so tender that she is unable to stand or sit or even transfer to a bedside commode. She is neurovascularly intact in showing no evidence of DKA or additional metabolic or bacterial complication. Will suggest hospital admission for pain control as well as physical therapy for early mobilization. This is a stable fracture and no surgery is indicated. Findings and recommendations reviewed with patient. Will contact hospitalist service for admission Discharge Plan Departure Patient Disposition: Admitted as Observation Clinical Impression: Diabetes mellitus type I Inferior pubic ramus fracture Qualifiers: Encounter type: initial encounter Fracture type: closed Laterality: right Qualified Code(s): S32.591A - Other specified fracture of right pubis, initial encounter for closed fracture Closed fracture of superior pubic ramus Qualifiers: Encounter type: initial encounter Laterality: right Qualified Code(s): S32.511A - Fracture of superior rim of right pubis, initial encounter for closed fracture Admit Date/Time: 09/20/21 01:25 Admit Provider: Halina Drake
--- NOTE | 2021-09-19 21:01 | DI.CT.S_ITS ---
PROCEDURE: CT PEL WO CON INDICATIONS: right hip pain, pain right illiac creast. non diagnositic xr TECHNIQUE: Noncontrast 3 mm axial sections acquired through the bony pelvis, with coronal and sagittal reformatting. COMPARISON: [facility], CR, XR HIP W PEL IF DONE RT 2V, 09/19/2021, 20:19. [facility], CT, CT ABDOMEN PELVIS W CON, 08/29/2021, 14:00. FINDINGS: Image quality: Excellent. Bones: There are minimally displaced fractures of the right superior and inferior pubic rami. No definite sacral fracture identified. Hips demonstrate no fracture or dislocation. Soft tissues: There is marked distention of the urinary bladder. There is suggestion of a small amount of intraperitoneal free fluid in the pelvis. IMPRESSION: 1. Minimally displaced fractures of the right superior and inferior pubic rami. 2. Marked distention of the urinary bladder suggestive of bladder outlet obstruction or urinary tension. Dictated by: Jesus Winston M.D. on 09/19/2021 at 23:07 Approved by: Jessu Winston M.D. on 09/19/2021 at 23:10
[2021-09-19] MEDS: HYDROMORPHONE 0.5 MG INJ IV ×3 (21:25→23:13)
[2021-09-19] MEDS: SODIUM CHLORIDE 0.9% 1,000 ML 150 ML IV (21:25)
[2021-09-19 21:44] LABS: Add Manual Diff / Slide Review NO; Basophils Absolute Auto 100 /uL (0-100); Basophils Percent Auto 0.7 % (0-2); Eosinophils Absolute Auto 0 /uL (0-450); Eosinophils Percent Auto 0.4 % (2-4); Hematocrit 38.4 % (36-46); Hemoglobin 12.9 g/dL (12.0-16.0); Lymphocytes Absolute Auto 1000 /uL (1100-4500); Lymphocytes Percent Auto 12.9 % (25-40); Mean Corpuscular HGB Conc 33.6 % (30-36); Mean Corpuscular Hemoglobin 30.9 PG (26-34); Monocytes Absolute Auto 500 /uL (0-900); Monocytes Percent Auto 7.1 % (3-14); Neutrophils Absolute Auto 6100 /uL (1500-7000); Neutrophils Percent Auto 78.9 % (50-75); Platelet Count 296 X10^3/uL (150-400); Red Blood Cell Count 4.17 X10^6/uL (4.0-5.2); Red Cell Distribution Width 13.3 % (11.6-14.8); White Blood Cell Count 7.7 X10^3/uL (4.5-11.0)
[2021-09-19 21:57] LABS: Alanine Aminotransferase 35 IU/L (<35); Albumin 3.7 g/dL (3.5-5.0); Albumin Globulin Ratio 1.3 (1.0-2.8); Alkaline Phosphatase 214 U/L (38-126); Aspartate Aminotransferase 30 IU/L (14-36); BUN Creatinine Ratio 37.1 (6-22); Bilirubin Total 0.6 mg/dL (0.2-1.3); Blood Urea Nitrogen 23 mg/dL (7-17); Calcium 8.7 mg/dL (8.4-10.2); Carbon Dioxide 22 mmol/L (22-32); Chloride 96 mmol/L (98-107); Estimated Glomerular Filt Rate > 60 mL/min (>60); Globulin 2.8 g/dL (1.7-4.1); Glucose 462 mg/dL (70-100); HEMOLYSIS 27 (0-50); Potassium 4.4 mmol/L (3.4-5.1); Sodium 133 mmol/L (137-145); Total Protein 6.5 g/dL (6.3-8.2)
--- NOTE | 2021-09-19 23:44 | PC.NURSE ---
Pt reporting she really needs to urinate. HR noted in 110's, BP 80'2/60's. Abd round, nontender. Pt declines clark. Dr Drake notified, ok to try bedpan or commode. Pt attempted to mobilize to commode, but too painful. Pt assisted to bedpan.
[2021-09-20] VITALS: BP 129/84; PULSE 120; O2SAT 96
[2021-09-20] MEDS: diphenhydrAMINE 50 MG/ML VIAL 25 MG IV (00:05)
[2021-09-20 00:13] LABS: Bacteria Urine None Seen; RBC Urine 1-5/HPF (0-5/HPF); Squamous Epithelial Cell Urine 0-1 /HPF (0-5/HPF); WBC Urine 0-1/HPF (0-5/HPF)
[2021-09-20 00:14] LABS: Culture Indicated Urine Cult Not Indicated
[2021-09-20 00:30] VITALS: BP 128/80; PULSE 116; O2SAT 96
[2021-09-20] MEDS: OXYCODONE/ACETAMINOPHEN 5/325 TABLET 1 TAB PO (01:06)
[2021-09-20] MEDS: KETOROLAC 30 MG/ML VIAL 15 MG IV ×3 (01:06→20:51)
[2021-09-20 01:46] LABS: COVID19 -Nasal RAPID Negative (Negative)
[2021-09-20] MEDS: INSULIN LISPRO 100 UNIT/ML 3ML VIAL 8 UNIT SUBCUT (01:53)
[2021-09-20] MEDS: INSULIN GLARGINE 100 UNIT/ML 3ML PEN 25 UNIT SUBCUT ×3 (01:53→20:53)
[2021-09-20 02:10] VITALS: BP 143/83; PULSE 115; RESP 18; TEMP 36.4; O2SAT 95
[2021-09-20 02:14] VITALS: BMI 18.8
[2021-09-20] MEDS: SODIUM CHLORIDE 0.9% 1,000 ML 150 ML IV ×3 (04:36→19:11)
[2021-09-20] MEDS: HYDROMORPHONE 0.5 MG INJ IV (04:38)
[2021-09-20] MEDS: diphenhydrAMINE 25 MG TABLET PO (05:34)
--- NOTE | 2021-09-20 06:16 | P.HP_ITS ---
History of Present Illness History of Present Illness Date Patient Seen: 09/20/21 Time Patient Seen: 06:17 Date of Onset of Symptoms: 09/19/21 Chief complaint: GLF / Lt hip pain Narrative: This is a very pleasant 31-year-old female who is well known to staff and [facility] personnel. Patient has type 1 diabetes and has been admitted frequently for diabetic ketoacidosis. She was in her usual state health today when she tripped on her foot and landed on the ground on her right side taking the brunt of the impact. She states that she fell very hard. She had immediate pain on her right hip to the point that she was only able to move over to her left side was unable to move. She was at home alone and she contacted her mom who then called the paramedics. She was brought in for evaluation and found to have a superior and inferior pubic rami fracture. She was given 15 mg of Toradol and dilaudid to improve her pain but still did not have good pain control and was not able to bear weight. She was admitted for further treatment and pain control. 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 Migraine headaches 3. History of acute kidney injury with pyelonephritis 4. Nephrolithiasis Medications: Patient takes Lantus 25 units twice daily. She takes 10 units of regular insulin prior to meals and at bedtime and sliding scale in the interim. Benadryl as needed for itching Past surgical history: Right ankle Surgery for tissue removal Cataract surgery Health related behavior: Patient does not use alcohol does not use illicit drugs and does not smoke and never has on a regular basis Social history: Patient lives in [place] with her fiance. She has a 7-year-old stepson. She has no other children. Her mom lives in a in a [place]. The patient does not work outside the home. Family history: Negative for diabetes, type 2 or type 1 Mom with heart murmur No family history of osteoporosis Patient History Medical History DKA (diabetic ketoacidoses) History of pyelonephritis Irregular menstrual cycle Migraine headache Nephrolithiasis Noncompliance w/medication treatment due to intermit use of medication Type 1 diabetes mellitus Surgical History History of ureter stent Hx of cataract surgery Hx of local excision of skin lesion Status post laser lithotripsy of ureteral calculus [place] teeth extracted Family & Social History Family History Father In good health Mother Cardiac disease Social History: household members significant other,family Safety & Behavioral: Feels Safe in Current Yes Environment Been Physically Hurt or No Threatened By a Person Tobacco & Substance use: Smoking Status Never smoker alcohol intake never alcohol intake frequency holiday/special occasion Substance Use Type does not use Meds Home Medications and Allergies Home Medications Medication Instructions Recorded Confirmed Type glucose 4 gram chewable tablet 4 gram PO Q15M PRN #30 tab 12/12/18 09/20/21 Rx glucagon (human recombinant) 1 mg 1 mg SUBCUT DIRECTED 02/16/19 09/20/21 History solution for injection (Glucagon Emergency Kit) insulin aspart U-100 100 unit/mL 10 unit SUBCUT AC 05/20/20 09/20/21 History (3 mL) subcutaneous pen (Novolog Flexpen U-100 Insulin aspart) diphenhydramine HCl 50 mg capsule 50 mg PO BEDTIME PRN 09/29/20 09/20/21 History insulin aspart U-100 100 unit/mL 1 sliding scale dose SUBCUT 04/13/21 09/20/21 Rx subcutaneous solution (Novolog USEASDIRECTD #10 ml U-100 Insulin aspart) insulin glargine 100 unit/mL (3 25 unit (0.25 mL) SUBCUT BID 10 04/13/21 09/20/21 Rx mL) subcutaneous pen (Lantus Days #5 ml Solostar U-100 Insulin) Allergies Allergy/AdvReac Type Severity Reaction Status Date / Time arredondo [ARREDONDO] Allergy Intermediate Hives, Verified 08/29/21 12:11 pruritus iodine [IODINE] Allergy Intermediate rash, itchy Verified 08/29/21 12:11 morphine Allergy Intermediate Difficulty Verified 08/29/21 12:11 Breathing shellfish derived Allergy Intermediate rash Verified 08/29/21 12:11 [SHELLFISH DERIVED] adhesive [ADHESIVE] Allergy Unknown tape Verified 08/29/21 12:11 latex [LATEX] Allergy Unknown Hives Verified 08/29/21 12:11 Review of Systems Review of Systems Narrative: Patient denies any syncope or presyncope. Patient denies any lightheadedness or dizziness. Patient denies any fever or chills. Patient has not had any recent rashes. Diabetes has been better controlled and patient has actually been able to gain 10 lb Patient does not have any rashes but does have a history of pruritusfor which she takes diphenhydramine No vomiting or diarrhea No recent headaches Remainder of 12 point review of systems is negative other than in HPI Exam Vital Signs (past 8 hours): - 09/19/21 22:30 09/19/21 23:00 09/19/21 23:30 Temperature Pulse Rate 105 H 109 H 114 H Respiratory Rate Blood Pressure 92/53 L 91/52 L 93/50 L Pulse Oximetry 94 98 97 09/19/21 23:32 09/19/21 23:33 09/19/21 23:52 Temperature Pulse Rate 111 H 117 H 140 H Respiratory Rate Blood Pressure 83/49 L 86/51 L 131/87 Pulse Oximetry 98 98 94 09/20/21 00:00 09/20/21 00:30 09/20/21 02:10 Temperature 97.5 F L Pulse Rate 120 H 116 H 115 H Respiratory Rate 18 Blood Pressure 129/84 128/80 143/83 H Pulse Oximetry 96 96 95 Oxygen Delivery Method Room Air Oxygen Flow Rate 0 Narrative Exam Narrative: This is a well-developed well-nourished female who is alert and oriented no apparent distress. She is resting comfortably in hospital bed but is unable to move due to severe pain of her right hip. Patient is afebrile. She has slight tachycardia in the low 1 teens and initially in the ER had some hypotension but that seemed to have resolved. O2 sat on room air is normal in the mid to upper 90s HeenT: Unremarkable no evidence of trauma Neck: Supple without adenopathy or thyromegaly, no neck pain Cor: Mild tachycardia with distant S1-S2 no murmur rubs or gallops Chest: Clear to auscultation without wheezes rhonchi or crackles Abdomen: Positive bowel sounds, soft, nontender, nondistended, no hepatospleno megaly Extremities: Normal pulses. No edema. Neurologic exam is nonfocal Skin shows scratching from excessive itching but no specific rash this is diffuse in her arms and legs Musculoskeletal: Patient with right lower extremity slightly internally rotated. She has severe pain over her right lateral hip and right posterior hip with no significant muscle spasm and no evidence of ecchymosis or abrasions. Objective Labs Result Diagrams: 09/19/21 21:27 09/19/21 21:27 Labs: Laboratory Results - last 24 hr 09/19/21 09/19/21 09/20/21 21: 21: 00:01 WBC 7.7 RBC 4.17 Hgb 12.9 Hct 38.4 MCV 92.0 MCH 30.9 MCHC 33.6 RDW 13.3 Plt Count 296 Neut % (Auto) 78.9 H Lymph % (Auto) 12.9 L [place] % (Auto) 7.1 Eos % (Auto) 0.4 L Baso % (Auto) 0.7 Neut # (Auto) 6100 Lymph # (Auto) 1000 L [place] # (Auto) 500 Eos # (Auto) 0 Baso # (Auto) 100 Sodium 133 L Potassium 4.4 Chloride 96 L Carbon Dioxide 22 BUN 23 H Creatinine 0.62 Estimated GFR > 60 BUN/Creatinine Ratio 37.1 H Glucose 462 H Calcium 8.7 Total Bilirubin 0.6 AST 30 ALT 35 H Alkaline Phosphatase 214 H Total Protein 6.5 Albumin 3.7 Globulin 2.8 Albumin/Globulin Ratio 1.3 Urine RBC 1-5/hpf Urine WBC 0-1/hpf Ur Squamous Epith Cells 0-1 /hpf Urine Bacteria None seen Urine Yeast 0-1/hpf Ur Culture Indicated? Cult not indicated SARS-CoV-2 (PCR) 09/20/21 01:19 WBC RBC Hgb Hct MCV MCH MCHC RDW Plt Count Neut % (Auto) Lymph % (Auto) [place] % (Auto) Eos % (Auto) Baso % (Auto) Neut # (Auto) Lymph # (Auto) [place] # (Auto) Eos # (Auto) Baso # (Auto) Sodium Potassium Chloride Carbon Dioxide BUN Creatinine Estimated GFR BUN/Creatinine Ratio Glucose Calcium Total Bilirubin AST ALT Alkaline Phosphatase Total Protein Albumin Globulin Albumin/Globulin Ratio Urine RBC Urine WBC Ur Squamous Epith Cells Urine Bacteria Urine Yeast Ur Culture Indicated? SARS-CoV-2 (PCR) Negative Assessment & Plan Assessment & Plan narrative: 31-year-old female with poorly controlled type 1 diabetes admitted with a right superior and inferior minimally displaced pubic rami fracture Assessment 1. Right, minimally displaced pubic rami fracture Plan: Patient will be admitted to the hospital for further treatment and pain management Will give Tylenol as needed. Will give dilaudid as needed. Will provide heat or ice as needed. Will have her on bedrest until Ortho evaluate. Will consult Orthopedics. Will consult PT and OT. May need muscle relaxant to help facilitate pain management. Ketorolac in the ER was beneficial and may need to continue for few days but we will await orthopedic evaluation. Also will have to watch carefully for kidney injury Assessment 2. Type 1 diabetes, very fragile poor control with repeated h ospitalizations for diabetic ketoacidosis I actually doing quite well at this time with a normal anion gap of 11 Plan: We will continue her outpatient regimen and will continue to monitor blood sugars closely as well as electrolytes Assessment 3. Tachycardia suspect related to pain Plan: Will manage pain and will monitor for need for IV fluids. Assessment 4. History of nephrolithiasis without current problems Plan follow Assessment 5. History of acute kidney injury without current problems and currently normal GFR Plan: Will continue to follow Code status is full code DVT prophylaxis with Lovenox as patient will be fairly immobile initially 60 minute spent with patient discussing with ER physician and nursing staff and meeting with patient and evaluating her chart, formulating a plan and documentation Time Spent With Patient Critical Care time: I spent a total of [] minutes of critical care time on this patient's care today; this time is exclusive of procedural time.
[2021-09-20 09:09] VITALS: BP 99/68; PULSE 101; RESP 18; TEMP 35.8; O2SAT 98
[2021-09-20] MEDS: DOCUSATE 100 MG CAPSULE PO ×2 (09:45→20:52)
[2021-09-20] MEDS: HYDROCODONE/ACET 5/325 TABLET 1 TAB PO (09:46)
--- NOTE | 2021-09-20 13:07 | PT-IP ANOTE ---
reviewed EMR and per doctor's note, pt is on bed rest until ortho MD consult. will proceed PT eval after ortho consult.
--- NOTE | 2021-09-20 13:18 | OT.IPNOTE ---
Pt still has bedrest orders and per note of physician pt to have ortho consult. Therefore hold OT eval at this time. Nursing aware and trying to get a hold of the doctor for further clarification.
[2021-09-20] MEDS: HYDROMORPHONE 0.5 MG INJ 1 MG IV ×2 (13:26→19:07)
--- NOTE | 2021-09-20 14:49 | P.PN_ITS ---
Subjective Subjective Interval history: Hospitalist daily visit. Patient says pain is too much to move much or get up. No other complaints other than pain. Exam Vital Signs (past 8 hours): - 09/20/21 09:09 Temperature 96.5 F L Pulse Rate 101 H Respiratory Rate 18 Blood Pressure 99/68 Pulse Oximetry 98 Oxygen Delivery Method Room Air Oxygen Flow Rate 0 Const General: cooperative and comfortable HENMT Head: normal to inspection Resp Auscultation: clear to auscultation bilaterally Cardio Rate: tachycardic Rhythm: regular rhythm Heart Sounds: S1 normal and S2 normal Back/Spine/Pelvis Other: Tender right sup and inf pubic rami. Skin General: no rashes or lesions noted Extrem General: normal to inspection Objective Labs Result Diagrams: 09/19/21 21:27 09/19/21 21:27 Labs: Laboratory Results - last 24 hr 09/19/21 09/19/21 09/20/21 21:27 21:27 00:01 WBC 7.7 RBC 4.17 Hgb 12.9 Hct 38.4 MCV 92.0 MCH 30.9 MCHC 33.6 RDW 13.3 Plt Count 296 Neut % (Auto) 78.9 H Lymph % (Auto) 12.9 L [place] % (Auto) 7.1 Eos % (Auto) 0.4 L Baso % (Auto) 0.7 Neut # (Auto) 6100 Lymph # (Auto) 1000 L [place] # (Auto) 500 Eos # (Auto) 0 Baso # (Auto) 100 Sodium 133 L Potassium 4.4 Chloride 96 L Carbon Dioxide 22 BUN 23 H Creatinine 0.62 Estimated GFR > 60 BUN/Creatinine Ratio 37.1 H Glucose 462 H Calcium 8.7 Total Bilirubin 0.6 AST 30 ALT 35 H Alkaline Phosphatase 214 H Total Protein 6.5 Albumin 3.7 Globulin 2.8 Albumin/Globulin Ratio 1.3 Urine RBC 1-5/hpf Urine WBC 0-1/hpf Ur Squamous Epith Cells 0-1 /hpf Urine Bacteria None seen Urine Yeast 0-1/hpf Ur Culture Indicated? Cult not indicated SARS-CoV-2 (PCR) 09/20/21 01:19 WBC RBC Hgb Hct MCV MCH MCHC RDW Plt Count Neut % (Auto) Lymph % (Auto) [place] % (Auto) Eos % (Auto) Baso % (Auto) Neut # (Auto) Lymph # (Auto) [place] # (Auto) Eos # (Auto) Baso # (Auto) Sodium Potassium Chloride Carbon Dioxide BUN Creatinine Estimated GFR BUN/Creatinine Ratio Glucose Calcium Total Bilirubin AST ALT Alkaline Phosphatase Total Protein Albumin Globulin Albumin/Globulin Ratio Urine RBC Urine WBC Ur Squamous Epith Cells Urine Bacteria Urine Yeast Ur Culture Indicated? SARS-CoV-2 (PCR) Negative ON LICENSE OF [facility] Medical History DKA (diabetic ketoacidoses) History of pyelonephritis Irregular menstrual cycle Migraine headache Nephrolithiasis Noncompliance w/medication treatment due to intermit use of medication Type 1 diabetes mellitus Surgical History History of ureter stent Hx of cataract surgery Hx of local excision of skin lesion Status post laser lithotripsy of ureteral calculus [place] teeth extracted Family History Father In good health Mother Cardiac disease Social History details: Engaged household members: significant other and family Smoking Status: Never smoker alcohol intake: never Assessment & Plan Assessment & Plan narrative: 31-year-old female with poorly controlled type 1 diabetes admitted with a right superior and inferior minimally displaced pubic rami fracture 1. Right, minimally displaced pubic rami fractures - sup and inf rami Improve pain management. PT to mobilize after Ortho consult. 2. Type 1 diabetes, very fragile poor control with repeated hospitalizations for diabetic ketoacidosis. Is actually doing quite wel with a normal anion gap of 11 on this admission Continue her outpatient regimen and will continue to monitor blood sugars closely as well as electrolytes 3.? Tachycardia suspect related to pain Manage pain better 4. History of nephrolithiasis without current problems 5.?History of acute kidney injury without current problems and currently normal GFR Follow labs. Time Spent With Patient Critical Care time: I spent a total of [] minutes of critical care time on this patient's care today; this time is exclusive of procedural time.
--- NOTE | 2021-09-20 15:04 | PT-IP ANOTE ---
reviewed EMR. ortho consult has not been conducted with pt as of now. will f/u. pt continues to be on bed rest until ortho consult per MD.
--- NOTE | 2021-09-20 15:57 | DIET.CONS2 ---
Dietary Inpatient Consultation Note Admission Date: 09/20/2021 01:25 31y F c brittle uncontrolled T1D admitted after GLF resulting in pelvic ramus fracture referred to nutrition for the same. Pt with A1c >14 x3 or more years with frequent ICU stays at for DKA and severe acute protein calorie malnutrition. Pt at higher side of UBW with BMI in healthy range of 18.7. BGs in hospital have been excellent 92-118, though on admit >400. Pts poorly managed diabetes and chronically low body weight and chronically malnourished state certainly contributes to pts pelvic fracture after GLF and will be a barrier to healing. Awaiting ortho consult for POC. DM educator to visit c pt or Saturday morning. Diet: 09/20/21 Breakfast Carbohydrate Consistent Diet Diet Modifications: Carbohydrate level: Medium (3 CHO) Bedtime snack: Yes Nutrition Percent Meal Consumed 100% 09/20/21 09:10 Nutrition Dx: Chronic Moderate Malnutrition r/t endocrine dysfunction and poorly managed DM aeb pt admitted after GLF resulting in pubic rami fx, pt c hx A1c >14 x3+ y with admit BG >400 and frequent hospitalizations for DKA, pt with recent weight gain but chronic hx BMI <18. Intervention: Sending ONS Glucerna bid to support nutrient needs for healing in addition to meal trays. Electronically Signed by: Ellen Kumari 09/20/21 15:57 Clinical Dietitian [address] [address]
--- NOTE | 2021-09-20 16:05 | CM.DANOTE ---
Initial DCP Assessment Note Pt is a 31 yo female, living in [place] w/adelia, parents Argelia and Peter live in [place]. Patient arrives after a GLF and subsequent pelvic fx Patient has type 1 diabetes and has been admitted frequently for diabetic ketoacidosis. PCP: Dr Limon, [facility] Payer: Aleksander/RENE Reviewed chart, met w/patient and her mom Argelia at bedside, introduced role. Patient remembers this [employer] and Care Management team from prior hospitalizations, states she hasn't been admitted for 6 months- has been stable on her long acting AM and PM insulin and has placed herself on an eating schedule so she eats properly throughout the day. 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 Discussed dispo (?) Patient and mom Argelia discussing DC home to mom's couch where there are only a few stairs to enter the home, vs return home to [facility] w/S.O. where there are significantly more stairs. Patient hopeful to remain in [place] w/mom in order to take advantage of local supports who can assist in her recovery Patient states she will need to be able to walk to the BR w/walker or AD that is recommended, in order to return home. Patient will not have 24/7 assist available. Family works M-F Plan: DC expected home w/family assist, via family pov, r/o need for HH PT upon DC RAYMOND Perea Discharge Planning/Care Management CM Discharge Assessment Start: 09/20/21 15:58 Freq: Status: Active Protocol: Document 09/20/21 15:58 ANGELA (Rec: 09/20/21 16:05 ANGELA [id number]) Discharge Planning Assessment Assigned Vision Mixer RAYMOND Barbour DPOA/Assigned Designee Name Reggie Tieshanina Claude Contact Information Reggie: [phone] Argelia: [phone] Advance Directives? No Advance Directives on File No History Provided By Patient,Parents,Medical Record Prior Living Arrangements House Household Members significant other,family Type of transporation used prior to Relies on Others admit Independent with ADL's Yes Is patient alert and oriented? Yes Comment PCP is Dr. Limon at [facility]# [phone]. Discharge Plan Home Transportation Arrangement Family Referrals Initiated Other
[2021-09-20 19:44] VITALS: BP 106/65; PULSE 103; RESP 16; TEMP 36.3; O2SAT 96
[2021-09-20] MEDS: SENNOSIDES 8.6 MG TABLET 17.2 MG PO (20:52)
[2021-09-20] MEDS: diphenhydrAMINE 25 MG TABLET 50 MG PO (20:53)
[2021-09-21] MEDS: SODIUM CHLORIDE 0.9% 1,000 ML 150 ML IV (01:01)
[2021-09-21] MEDS: HYDROMORPHONE 0.5 MG INJ 1 MG IV ×5 (01:02→21:57)
[2021-09-21] MEDS: KETOROLAC 30 MG/ML VIAL 15 MG IV ×4 (03:07→21:44)
[2021-09-21] MEDS: PANTOPRAZOLE DR 20 MG TABLET PO (05:45)
[2021-09-21 06:02] LABS: Add Manual Diff / Slide Review NO; Basophils Absolute Auto 0 /uL (0-100); Basophils Percent Auto 0.6 % (0-2); Eosinophils Absolute Auto 100 /uL (0-450); Eosinophils Percent Auto 1.4 % (2-4); Hematocrit 35.2 % (36-46); Lymphocytes Absolute Auto 1400 /uL (1100-4500); Lymphocytes Percent Auto 29.9 % (25-40); Mean Corpuscular HGB Conc 34.1 % (30-36); Mean Corpuscular Hemoglobin 31.6 PG (26-34); Mean Corpuscular Volume 92.5 fL (80-100); Monocytes Absolute Auto 500 /uL (0-900); Monocytes Percent Auto 10.5 % (3-14); Neutrophils Absolute Auto 2800 /uL (1500-7000); Neutrophils Percent Auto 57.6 % (50-75); Platelet Count 250 X10^3/uL (150-400); Red Blood Cell Count 3.81 X10^6/uL (4.0-5.2); Red Cell Distribution Width 13.6 % (11.6-14.8); White Blood Cell Count 4.8 X10^3/uL (4.5-11.0)
[2021-09-21 06:07] LABS: Albumin 2.7 g/dL (3.5-5.0); BUN Creatinine Ratio 60.3 (6-22); Blood Urea Nitrogen 35 mg/dL (7-17); Calcium 8.5 mg/dL (8.4-10.2); Carbon Dioxide 28 mmol/L (22-32); Chloride 110 mmol/L (98-107); Estimated Glomerular Filt Rate > 60 mL/min (>60); Glucose 135 mg/dL (70-100); HEMOLYSIS < 15 (0-50); Phosphorous 5.9 mg/dL (2.5-4.5); Potassium 4.3 mmol/L (3.4-5.1); Sodium 140 mmol/L (137-145)
[2021-09-21 06:09] LABS: Alanine Aminotransferase 33 IU/L (<35); Albumin 2.9 g/dL (3.5-5.0); Alkaline Phosphatase 111 U/L (38-126); Aspartate Aminotransferase 52 IU/L (14-36); BUN Creatinine Ratio 62.7 (6-22); Bilirubin Total 0.2 mg/dL (0.2-1.3); Blood Urea Nitrogen 37 mg/dL (7-17); Calcium 8.5 mg/dL (8.4-10.2); Carbon Dioxide 27 mmol/L (22-32); Chloride 111 mmol/L (98-107); Estimated Glomerular Filt Rate > 60 mL/min (>60); Globulin 2.9 g/dL (1.7-4.1); Glucose 134 mg/dL (70-100); HEMOLYSIS < 15 (0-50); Potassium 4.1 mmol/L (3.4-5.1); Sodium 139 mmol/L (137-145); Total Protein 5.8 g/dL (6.3-8.2)
[2021-09-21 06:14] LABS: Hemoglobin A1C% w Est Avg Glu > 14.0 % (4.0-6.0)
[2021-09-21 08:45] VITALS: BP 141/97; PULSE 113; RESP 18; TEMP 35.8; O2SAT 99
[2021-09-21] MEDS: INSULIN GLARGINE 100 UNIT/ML 3ML PEN 25 UNIT SUBCUT ×2 (08:56→21:46)
[2021-09-21] MEDS: DOCUSATE 100 MG CAPSULE PO ×2 (08:56→21:44)
[2021-09-21] MEDS: HYDROCODONE/ACET 5/325 TABLET 1 TAB PO ×2 (08:56→17:04)
[2021-09-21] MEDS: INSULIN LISPRO 100 UNIT/ML 3ML VIAL 10 UNIT SUBCUT (08:57)
--- NOTE | 2021-09-21 10:50 | PT.IIE ---
Medical History (Last Reviewed 09/20/21 @ 06:22 by Halina Drake MD) DKA (diabetic ketoacidoses) History of pyelonephritis Irregular menstrual cycle Migraine headache Nephrolithiasis Noncompliance w/medication treatment due to intermit use of medication Type 1 diabetes mellitus Physical Therapy Inpatient Evaluation/Re-Eval M1 PT/OT-IP Prior Functional Status Start: 09/21/21 13:35 Freq: NEEDED Status: Active Protocol: Document 09/21/21 13:36 AB (Rec: 09/21/21 13:49 AB [id number]) Medical Review Prior Functional Status Medical History Reviewed Yes Communication able to make needs known Mobility and Gait pt stated that she is independent with all mobilities and ambulation without AD Social History Household Members significant other Living Arrangements House Number of Floors (Floors) One Floor Number of Stairs To Enter/Railing? 5 steps without rails to enter Home Environment Standard Height Toilet,Tub/ Shower Home Equipment Shower Seat with Backrest Additional Social History Comment pt stated that her fiance works from 6 am and does not return home until ~ 11pm pt has an adjustable bed M2 PT-IP Current Condition Start: 09/21/21 13:35 Freq: NEEDED Status: Active Protocol: Document 09/21/21 13:36 AB (Rec: 09/21/21 13:49 AB [email or web address]) Physical Therapy Current Condition Current Condition Evaluation Date 09/21/21 Treatment Diagnosis s/p fall; R pubic rami fx; difficulty in walking Onset Date 09/20/21 M3 PT-IP Subjective Start: 09/21/21 13:35 Freq: NEEDED Status: Active Protocol: Document 09/21/21 13:36 AB (Rec: 09/21/21 13:49 AB [email or web address]) Subjective Physical Therapy Visit Type Type Initial Evaluation Visit Start Time 10:50 Visit Stop Time 11:40 Total Visit Minutes 50 Notes checked with hospitalist and stated that she will change bedrest order to ambulate as tolerate and pt will be weight bearing as tolerated. ok for PT to do eval Number of WEB PRESS OPERATOR Visits 0 Therapy Pain Assessment Pain When Pain Assessed At Rest Pain Present Pain Present Pain Reported Location Right Hip Intensity 8 Scale Used Numeric (0 - 10) Pain Behaviors Crying,Facial Grimacing, Guarding,Moaning,Wincing Pain Management Techniques Apply Cold,Distraction, Modification of Treatment,Re- positioning,Timing of Activity with Medications M4 PT-IP Mobility and Gait Start: 09/21/21 13:35 Freq: NEEDED Status: Active Protocol: Document 09/21/21 13:36 AB (Rec: 09/21/21 13:49 AB [email or web address]) PT-Bed Mobility Assessment Supine to Sit Supine to Sit Maximum Assistance Scooting Scooting to Edge of Bed Maximum Assistance PT-Transfer Assessment Sit to and From Stand Sit to and from Stand Moderate Assistance,1 Person Assistance,Use of Upper Extremities Equipment Transfer Assistive Device Gait Belt,Front Wheeled Walker Orthotic/Prosthetic Devices or Brace: No Transfers Transfer Destination Chair Transfer Technique Stand Step Pivot Transfer Ability Level of Assist Moderate Assistance,1 Person Assistance,Use of Upper Extremities Comments Mobility Comments completed supine to sit max A and max cues. requires increase rest breaks in between activities due to c/o increase pain. completed sit to stand mod A and step transfer to bed mod A and cues . refused further activities but agreed to sit on the chair . positioned pt on the chair. call light and table placed within reach. PT-Balance Assessment Sitting Balance and Reactions Static Sitting Balance Ability Good Dynamic Sitting Balance Ability Fair Standing Balance and Reactions Static Standing Balance Ability Poor Dynamic Standing Balance Ability Poor Device Used FWW M5 PT-IP Objective Assessments Start: 09/21/21 13:35 Freq: NEEDED Status: Active Protocol: Document 09/21/21 13:36 AB (Rec: 09/21/21 13:49 AB [id number]) Orientation Orientation/Cognition Level of Alertness Alert Orientation Name,Place,Situation Language Function Ability No Deficits Noted Safety Awareness Decreased Safety Awareness Memory Description No Deficits Noted Gross Range of Motion Lower Extremity ROM Impairments RLE pain limiting mobility Strength Comments Strength Comments pain limiting movement on BLE Muscle Tone Muscle Tone WNL Yes M6 PT-IP Treatment Start: 09/21/21 13:35 Freq: NEEDED Status: Active Protocol: Document 09/21/21 13:36 AB (Rec: 09/21/21 13:49 AB [id number]) Physical Therapy Treatment Education Education Provided Safety M7 PT-IP Assessment and Plan Start: 09/21/21 13:35 Freq: NEEDED Status: Active Protocol: Document 09/21/21 13:36 AB (Rec: 09/21/21 13:49 AB [id number]) PT Summary Assessment and Plan Potential Rehabilitation Potential Fair Status of Condition at Evaluation Evolving Summary Impairments Pain,ROM,Strength,Balance, Coordination,Sensation,Tone, Cognition,Bed Mobility, Transfers,Gait,Activity Tolerance Assessment Summary pt requiring max A for bed mobility and mod A for transfer using fWW and unable to tolerate much activity due to c/o increase R posterior hip pain. if pain is better controlled, pt will be able to function better but at this time, will require SNF rehab due to increase assistance needed and unable to ambulate at this time. will continue to assess progress. Goals Bed Mobility Goal Standby Assistance Transfer Goal Standby Assistance,Front Wheeled Walker Gait Goal Standby Assistance,Front Wheel Walker Gait Distance 100 Other Goals improve bed mobility, transfers using FWW mod I improve ambulation using FWW mod I ~ 200 ft up/down 5 steps POLISHER DIAL/SPC CGA Days to Meet Goals 10 Frequency of Treatment Frequency Of Treatment Once a Day Treatment Plan Physical Therapy Treatment Plan Bed Mobility Training,Transfer Training,Gait Training, Therapeutic Exercise,Balance Retraining,Discharge Planning, Hot or Cold Pack,Neuromuscular Re-ed,Coordination Retraining ,Manual Therapy Weight Bearing Status Weight Bearing Status Weight Bear as Tolerated Allowed Weight Bearing Amount (enter % RLE WBAT or #) (%) Recommendations To Nursing Amount of Assist Needed 1 Person Assist Discharge Recommendations PT Discharge Recommendations Home with 12/11 Assist Available,Home Health,SNF Rehab,Home vs SNF Equipment Needed for Home Before FWW Discharge Transportation Needs at Discharge Private Vehicle
--- NOTE | 2021-09-21 12:07 | PM.CN ---
History of Present Illness Consult details Date Patient Seen: 09/21/21 Time Patient Seen: 20:51 Chief complaint: GLF / Lt hip pain Reason for consult: Pubic rami fractures having pain and difficulty with mobilization and PT Requesting provider: Liane Briceno Narrative: ---orthopedic surgery was not called (computer was consult placed (possibly by previous hospitalist shift) but ortho surgeon not notified --surgeon spoke with day hospitalist about pt on 09/21/21). images reviewed WBAT --nonop-- pain control and PT and assisting devices- walker/crutches. can check vit D and start vit D and calcium for bone health. may work with PT now- Patient is a 31-year-old type 1 diabetic patients but is poorly controlled. She had a fall which she states was a ?very hard fall? onto her right side. She had extreme pain all over her right pelvis hip. She was seen in the emergency room where x-rays and a CT scan were taken demonstrated minimally displaced superior and inferior pubic rami fractures. No posterior or sacral ala fractures were demonstrated. Patient was also found to have a hemoglobin A1c of 14%. She was admitted to the medicine service for management and recommended for physical therapy mobilization with her fractures. When she had a difficult time mobilizing with physical therapy orthopedic surgery was consulted. Denies any numbness or tingling. States severe pain and tenderness of from the ischium down almost to the knee. States it is better now than it was earlier in the day. Meds Home Medications and Allergies Home Medications Medication Instructions Recorded Confirmed Type glucose 4 gram chewable tablet 4 gram PO Q15M PRN #30 tab 12/12/18 09/20/21 Rx glucagon (human recombinant) 1 mg 1 mg SUBCUT DIRECTED 02/16/19 09/20/21 History solution for injection (Glucagon Emergency Kit) insulin aspart U-100 100 unit/mL 10 unit SUBCUT AC 05/20/20 09/20/21 History (3 mL) subcutaneous pen (Novolog Flexpen U-100 Insulin aspart) diphenhydramine HCl 50 mg capsule 50 mg PO BEDTIME PRN 09/29/20 09/20/21 History insulin aspart U-100 100 unit/mL 1 sliding scale dose SUBCUT 04/13/21 09/20/21 Rx subcutaneous solution (Novolog USEASDIRECTD #10 ml U-100 Insulin aspart) insulin glargine 100 unit/mL (3 25 unit (0.25 mL) SUBCUT BID 10 04/13/21 09/20/21 Rx mL) subcutaneous pen (Lantus Days #5 ml Solostar U-100 Insulin) Allergies Allergy/AdvReac Type Severity Reaction Status Date / Time abdalla [ABDALLA] Allergy Intermediate Hives, Verified 08/29/21 12:11 pruritus iodine [IODINE] Allergy Intermediate rash, itchy Verified 08/29/21 12:11 morphine Allergy Intermediate Difficulty Verified 08/29/21 12:11 Breathing shellfish derived Allergy Intermediate rash Verified 08/29/21 12:11 [SHELLFISH DERIVED] adhesive [ADHESIVE] Allergy Unknown tape Verified 08/29/21 12:11 latex [LATEX] Allergy Unknown Hives Verified 08/29/21 12:11 Review of Systems Review of Systems Narrative: Complaints of pain related to her musculoskeletal injury. No fevers chills. Does have known history of poorly controlled diabetes ROS: Yes All systems reviewed with the patient and are negative except as otherwise documented Exam Vital Signs (past 8 hours): - 09/21/21 08:45 Temperature 96.5 F L Pulse Rate 113 H Respiratory Rate 18 Blood Pressure 141/97 H Pulse Oximetry 99 Oxygen Delivery Method Room Air Oxygen Flow Rate 0 Narrative Exam Narrative: Alert oriented female no acute distress lying in bed. HEENT exam normocephalic atraumatic. Respiratory exam unlabored on room air. Lungs clear to auscultation. Abdomen is soft. Pelvis is stable to rock. Has tenderness even with light touch from the iliac crest down to about the inner trochanteric region but no deformities no masses no ecchymosis and no crepitus. Hip rotation limited secondary to pain but alignment of lower extremities is neutral there is no effusion of the knees in the thigh and lower leg compartments are soft. Demonstrates good dorsiflexion plantar flexion of the ankles wiggles the toes has palpable distal pulses. Multiple sea animals tattoos over the right thigh and a fresh seahorse 1. Tenderness or limitations of the left lower extremity. Moving bilateral upper extremities without limitation. Objective Imaging CT scan - pelvis: My impression: Minimally displaced fracture right superior and possible inferior pubic rami. Radiologist's impression: Minimally displaced fractures right superior and inferior pubic rami marked distension urinary bladder suggestive of bladder outlet obstruction or urinary tension Jesus Winston MD Labs Result Diagrams: 09/21/21 05:40 09/21/21 05:40 Labs: Laboratory Results - last 24 hr 09/21/21 09/21/21 09/21/21 05:40 05:40 05:40 WBC 4.8 RBC 3.81 L Hgb 12.0 Hct 35.2 L MCV 92.5 MCH 31.6 MCHC 34.1 RDW 13.6 Plt Count 250 Neut % (Auto) 57.6 D Lymph % (Auto) 29.9 [place] % (Auto) 10.5 Eos % (Auto) 1.4 L Baso % (Auto) 0.6 Neut # (Auto) 2800 Lymph # (Auto) 1400 [place] # (Auto) 500 Eos # (Auto) 100 Baso # (Auto) 0 Sodium 139 140 Potassium 4.1 4.3 Chloride 111 H 110 H Carbon Dioxide 27 28 BUN 37 H 35 H Creatinine 0.59 0.58 Estimated GFR > 60 > 60 BUN/Creatinine Ratio 62.7 H 60.3 H Glucose 134 H D 135 H Hemoglobin A1c Calcium 8.5 8.5 Phosphorus 5.9 H Total Bilirubin 0.2 AST 52 H ALT 33 Alkaline Phosphatase 111 D Total Protein 5.8 L Albumin 2.9 L 2.7 L Globulin 2.9 Albumin/Globulin Ratio 1.0 09/21/21 05:40 WBC RBC Hgb Hct MCV MCH MCHC RDW Plt Count Neut % (Auto) Lymph % (Auto) [place] % (Auto) Eos % (Auto) Baso % (Auto) Neut # (Auto) Lymph # (Auto) [place] # (Auto) Eos # (Auto) Baso # (Auto) Sodium Potassium Chloride Carbon Dioxide BUN Creatinine Estimated GFR BUN/Creatinine Ratio Glucose Hemoglobin A1c > 14.0 H Calcium Phosphorus Total Bilirubin AST ALT Alkaline Phosphatase Total Protein Albumin Globulin Albumin/Globulin Ratio [facility] Medical History DKA (diabetic ketoacidoses) History of pyelonephritis Irregular menstrual cycle Migraine headache Nephrolithiasis Noncompliance w/medication treatment due to intermit use of medication Type 1 diabetes mellitus Surgical History History of ureter stent Hx of cataract surgery Hx of local excision of skin lesion Status post laser lithotripsy of ureteral calculus [place] teeth extracted Family History Father In good health Mother Cardiac disease Social History details: Engaged household members: significant other and family Tobacco & Substance Use Smoking Status: Never smoker alcohol intake: never Assessment & Plan Assessment and plan (1) Closed fracture of superior pubic ramus: Problem details: Non operative treatment. Weightbear as tolerated. Mobilize with physical therapy. Expect pain into use walker 4-6 weeks. Should slowly start to feel better each week. Calcium and vitamin-D for bone health if appropriate with a kidney. Will check vitamin-D level. Discussed impact of uncontrolled diabetes on bone health and healing with the patient. Recommend working hard on glucose control for bone health and overall helped Qualifiers: Encounter type: initial encounter Laterality: right Qualified Code(s): S32.511A - Fracture of superior rim of right pubis, initial encounter for closed fracture Status: Acute (2) Inferior pubic ramus fracture: Problem details: Same as above Qualifiers: Encounter type: initial encounter Fracture type: closed Laterality: right Qualified Code(s): S32.591A - Other specified fracture of right pubis, initial encounter for closed fracture Status: Acute (3) Diabetic ketoacidosis associated with type 1 diabetes mellitus: Problem details: Same as above diabetic management per primary team but the recommend working hard on tight control as uncontrolled diabetes increases complications and is detrimental to bone health and healing which is relevant to her current pelvic fractures Qualifiers: Diabetes mellitus complication detail: without coma Qualified Code(s): E10.10 - Type 1 diabetes mellitus with ketoacidosis without coma Status: Acute COVID-19 COVID-19 status: Negative Time Spent With Patient Time with patient: less than 30 minutes Critical Care time: I spent a total of [] minutes of critical care time on this patient's care today; this time is exclusive of procedural time.
--- NOTE | 2021-09-21 13:52 | OT.IP.EVAL ---
Past Medical History (Last Reviewed 09/20/21 @ 06:22 by Halina Drake MD) DKA (diabetic ketoacidoses) History of pyelonephritis History of ureter stent Hx of cataract surgery Hx of local excision of skin lesion Irregular menstrual cycle Migraine headache Nephrolithiasis Noncompliance w/medication treatment due to intermit use of medication Status post laser lithotripsy of ureteral calculus Type 1 diabetes mellitus [place] teeth extracted Surgical History (Last Reviewed 09/20/21 @ 06:22 by Halina Drake MD) History of ureter stent Hx of cataract surgery Hx of local excision of skin lesion Status post laser lithotripsy of ureteral calculus [place] teeth extracted Occupational Therapy Inpatient Evaluation/Re-Eval M1 PT/OT-IP Prior Functional Status Start: 09/21/21 13:35 Freq: NEEDED Status: Active Protocol: Document 09/21/21 13:36 AB (Rec: 09/21/21 13:49 AB [id number]) Medical Review Prior Functional Status Medical History Reviewed Yes Communication able to make needs known Mobility and Gait pt stated that she is independent with all mobilities and ambulation without AD Social History Household Members significant other Living Arrangements House Number of Floors (Floors) One Floor Number of Stairs To Enter/Railing? 5 steps without rails to enter Home Environment Standard Height Toilet,Tub/ Shower Home Equipment Shower Seat with Backrest Additional Social History Comment pt stated that her fiance works from 6 am and does not return home until ~ 11pm pt has an adjustable bed M2 OT-IP Current Condition Start: 09/21/21 14:13 Freq: Status: Active Protocol: Document 09/21/21 13:30 [facility] (Rec: 09/21/21 14:33 [facility] [id number]) Occupational Therapy Current Condition Current Condition Evaluation Date 09/21/21 Treatment Diagnosis Minimally displaced fractures of the right superior/inferior pubic rami Diagnosis Onset Date 09/20/21 Weight Bearing Status Weight Bearing Status Weight Bear as Tolerated Allowed Weight Bearing Amount (enter % Per Orthro consult , pt is or #) (%) WBAT M3 OT- IP Subjective and Pain Start: 09/21/21 14:13 Freq: Status: Active Protocol: Document 09/21/21 13:30 [facility] (Rec: 09/21/21 14:33 [facility] [id number]) OT- Subjective Occupational Therapy Visit Type Type Initial Evaluation Visit Start Time 13:30 Visit Stop Time 13:52 Total Visit Minutes 22 Occupational Therapy Visit Comments Patient Comments Pt wanting to use the BSC. Patient/Caregiver Goals To get better. OT Pain Assessment Pain When Pain Assessed During Mobility Pain Present Pain Present Pain Reported Location Right Hip Intensity 8 M4 OT- IP ADL's Start: 09/21/21 14:13 Freq: Status: Active Protocol: Document 09/21/21 13:30 [facility] (Rec: 09/21/21 14:33 [facility] [id number]) OT [id number] Comments OT Self-Feeding Comments NOt at meal time. OT ADL-Grooming Comments OT Grooming Comments NOt performed. OT ADL-Oral Care Comments Oral Care Comments NOt performed. OT ADL-Dressing Comments OT Dressing Comments Pt will need assist for LB dressing needs at this time, to show pt LB dressing equipment tomorrow. OT ADL-Toileting General Evaluation Toileting Ability Standby Assistance Comments OT Toileting Comments Pt able to wipe from the front with a few readjustment on the BSC with strong use of her arms on the BSC. Pt may need assist to wipe if having a bowel movement at this time due to her pain. OT ADL-Bathing Comments OT Bathing Comments Not performed, pt will benefit from tub bench or sponge bathes at this time. M5 OT- IP IADL's Start: 09/21/21 14:13 Freq: Status: Active Protocol: Document 09/21/21 13:30 [facility] (Rec: 09/21/21 14:33 [facility] [id number]) OT-Instrumental Activities of Daily Living Home Safety Awareness Awareness of Need for Assistance at Home Good Awareness M6 OT- IP Functional Cognition Start: 09/21/21 14:13 Freq: Status: Active Protocol: Document 09/21/21 13:30 [facility] (Rec: 09/21/21 14:33 [facility] [id number]) Cognitive Factors Limiting Selfcare Function Cognitive Ability Level of Alertness Alert Patient Orientation Name,Age,Birthday,Month,Date, Year,Day of Week,Place, Situation Attention Span Ability Capable of Focused Attention, Capable of Sustained Attention Ability to Follow Commands Able to Follow One Step Commands Cognitive Comments Cognitive Assessment Comments Pt needing encouragement however able to follow commands well for ADl and mobility needs. OT- Vision and Hearing OT- Hearing Assessment OT- Hearing Assessment WFL OT- Vision Assessment Visual Acuity Glasses For Reading M7 OT- IP Mobility and Balance Start: 09/21/21 14:13 Freq: Status: Active Protocol: Document 09/21/21 13:30 [facility] (Rec: 09/21/21 14:33 [facility] [id number]) OT- Bed Mobility Assessment Sit to Supine Sit to Supine Assist Maximum Assistance,1 Person Assistance OT-Transfer Assessment Sit to and From Stand Sit to and from Stand Moderate Assistance,1 Person Assistance Transfers Transfer Ability Moderate Assistance,1 Person Assistance Technique Transfer Destination Bed,Bedside Commode,Chair Transfer Technique Stand Step Pivot Devices Transfer Assistive Devices Gait Belt,Front Wheeled Walker Comments Mobility Comments Pt able to scoot forwards in the recliner with increased time and MODA x1 to stand to the FWW and assist for balance and to guide the FWW. MAX A x1 with HOB up to get back into bed. OT- Balance Assessment Sitting Balance and Reactions Static Sitting Balance Ability Good Dynamic Sitting Balance Ability Fair Standing Balance and Reactions Static Standing Balance Ability Fair M8 OT- IP Objective Assessments Start: 09/21/21 14:13 Freq: Status: Active Protocol: Document 09/21/21 13:30 [facility] (Rec: 09/21/21 14:33 [facility] [id number]) OT Gross Range of Motion Upper Extremity Range of Motion Assessment Within Functional Limits OT-Muscle Tone Assessment Muscle Tone WNL Yes M9 OT- IP Assessment and Plan Start: 09/21/21 14:13 Freq: Status: Active Protocol: Document 09/21/21 13:30 [facility] (Rec: 09/21/21 14:33 [facility] [id number]) OT Summary Assessment and Plan Potential Rehabilitation Potential Good Analytic Complexity at Evaluation Moderate Summary OT Impairments Pain,Strength,Balance, Functional Mobility,Dressing, Toileting,Bathing,Toilet Transfers,Shower Transfers Progress Towards Goals Slow Progress due to Pain,Slow Progress due to Medical Issues Assessment Summary Pt MOD complexity and main barriers are steps, pain, and now needing one person assist for all needs of ADl's and mobility needs. Pt works 16 hour days and her mom works 8 hour days and would have to be MOD I with her needs. Pt would benefit from skilled rehab versus if possible to have 24/7 assist with home health. Already spoke to pt about getting equipment needs of fww, BSC, LB dressing equipment, tub bench, and wc if needed. DME equipment list given to pt. Goals Grooming Goal Independent Dressing Goal Independent Toileting Goal Independent Bathing Goal Independent Toilet Transfer Goal Independent Shower Transfer Goal Independent Days to Meet Goals 20 Frequency of Treatment Frequency Of Treatment Once a Day Treatment Plan OT Treatment Plan ADL Training,Functional Mobility,Patient/Family Education,Discharge Planning Other Treatment Recommendations and Next LB dressing equipment practice Treatment Focus Discharge Recommendations OT Discharge Recommendations Home with 24/7 Assist Available,Home Health,SNF Rehab,Home vs SNF Home Equipment Needs BSC, FWW, tub bench, wc
--- NOTE | 2021-09-21 18:34 | PC.NURSE ---
Pt is AxOx4, needs max assistance and cooperative. Pt is on RA and c/o R hip and pelvic pain with movement or sometimes not even movement. PRN Pain med [place], and IV Dilaudid 1 mg given with good effect. Pt also is receiving IV Toradol scheduled. Pt worked with PT today and sat on the chair few hours and back to bed. BG-115/67/220/214 today. After BG-67 pt was given snack and juice. BG went up quick. Otherwise, pt is eating well and resting on her bed. No other changes.
--- NOTE | 2021-09-21 19:01 | P.PN_ITS ---
Subjective Subjective Interval history: The daily hospitalist visit. Patient still has pain but has been able to get up in the chair. Understands that she will not do any further fractures with activity even though there is pain. Understands that no surgery is needed. No new complaints. Exam Vital Signs (past 8 hours): Oxygen Delivery Method Room Air Oxygen Flow Rate 0 Narrative Exam Narrative: Patient alert and oriented in no apparent distress. HEENT:: Pupils equal reactive to light extraocular movements normal. Cardiovascular: Heart sounds S1 and S2 Respiratory: Chest is clear to auscultation Gastrointestinal: Abdomen is soft. Nontender. Musculoskeletal: Able to move all extremities volitionally. No specific localized strength deficits. Tender right superior and inferior rami. Neuro: Normal sensation all extremities. Objective Labs Result Diagrams: 09/21/21 05:40 09/21/21 05:40 Labs: Laboratory Results - last 24 hr 09/21/21 09/21/21 09/21/21 05:40 05:40 05:40 WBC 4.8 RBC 3.81 L Hgb 12.0 Hct 35.2 L MCV 92.5 MCH 31.6 MCHC 34.1 RDW 13.6 Plt Count 250 Neut % (Auto) 57.6 D Lymph % (Auto) 29.9 [place] % (Auto) 10.5 Eos % (Auto) 1.4 L Baso % (Auto) 0.6 Neut # (Auto) 2800 Lymph # (Auto) 1400 [place]ent # (Auto) 500 Eos # (Auto) 100 Baso # (Auto) 0 Sodium 139 140 Potassium 4.1 4.3 Chloride 111 H 110 H Carbon Dioxide 27 28 BUN 37 H 35 H Creatinine 0.59 0.58 Estimated GFR > 60 > 60 BUN/Creatinine Ratio 62.7 H 60.3 H Glucose 134 H D 135 H Hemoglobin A1c Calcium 8.5 8.5 Phosphorus 5.9 H Total Bilirubin 0.2 AST 52 H ALT 33 Alkaline Phosphatase 111 D Total Protein 5.8 L Albumin 2.9 L 2.7 L Globulin 2.9 Albumin/Globulin Ratio 1.0 09/21/21 05:40 WBC RBC Hgb Hct MCV MCH MCHC RDW Plt Count Neut % (Auto) Lymph % (Auto) [place] % (Auto) Eos % (Auto) Baso % (Auto) Neut # (Auto) Lymph # (Auto) [place]ent # (Auto) Eos # (Auto) Baso # (Auto) Sodium Potassium Chloride Carbon Dioxide BUN Creatinine Estimated GFR BUN/Creatinine Ratio Glucose Hemoglobin A1c > 14.0 H Calcium Phosphorus Total Bilirubin AST ALT Alkaline Phosphatase Total Protein Albumin Globulin Albumin/Globulin Ratio PFSH Medical History DKA (diabetic ketoacidoses) History of pyelonephritis Irregular menstrual cycle Migraine headache Nephrolithiasis Noncompliance w/medication treatment due to intermit use of medication Type 1 diabetes mellitus Surgical History History of ureter stent Hx of cataract surgery Hx of local excision of skin lesion Status post laser lithotripsy of ureteral calculus [place] teeth extracted Family History Father In good health Mother Cardiac disease Social History details: Engaged household members: significant other Smoking Status: Never smoker alcohol intake: never Assessment & Plan Assessment & Plan narrative: 31-year-old female with poorly controlled type 1 diabetes admitted with a right superior and inferior minimally displaced pubic rami fracture 1. Right, minimally displaced pubic rami fractures - sup and inf rami Pain control is better. Patient changed activity as tolerated may weightbear. Physical has gotten the patient up in the chair. Ortho to see. 2. Type 1 diabetes, very fragile poor control with repeated hospitalizations for diabetic ketoacidosis. Is actually doing quite well with a normal anion gap of 11 on this admission Continue her outpatient regimen and will continue to monitor blood sugars closely as well as electrolytes 3.? Tachycardia suspect related to pain Still elevated. Consistent with elevated pain. 4. History of nephrolithiasis without current problems 5.?History of acute kidney injury without current problems and currently normal GFR Follow labs with the kidney function remaining normal. Hopefully will be a short stay as patient mobilizes more and is able to function at home. Time Spent With Patient Critical Care time: I spent a total of [] minutes of critical care time on this patient's care today; this time is exclusive of procedural time.
[2021-09-21 19:55] VITALS: BP 127/83; PULSE 114; RESP 16; TEMP 36.6; O2SAT 96
[2021-09-21] MEDS: SENNOSIDES 8.6 MG TABLET 17.2 MG PO (21:45)
[2021-09-21] MEDS: diphenhydrAMINE 25 MG TABLET 50 MG PO (22:49)
[2021-09-22] MEDS: HYDROMORPHONE 0.5 MG INJ 1 MG IV ×4 (03:01→16:51)
[2021-09-22] MEDS: SODIUM CHLORIDE 0.9% FLUSH 10 ML IV ×4 (03:42→20:06)
[2021-09-22] MEDS: KETOROLAC 30 MG/ML VIAL 15 MG IV ×2 (03:42→16:50)
[2021-09-22] MEDS: PANTOPRAZOLE DR 20 MG TABLET PO (05:48)
[2021-09-22 06:06] LABS: Add Manual Diff / Slide Review NO; Basophils Absolute Auto 0 /uL (0-100); Basophils Percent Auto 0.4 % (0-2); Eosinophils Absolute Auto 100 /uL (0-450); Eosinophils Percent Auto 1.3 % (2-4); Hematocrit 34.5 % (36-46); Hemoglobin 11.4 g/dL (12.0-16.0); Lymphocytes Absolute Auto 1000 /uL (1100-4500); Lymphocytes Percent Auto 21.4 % (25-40); Mean Corpuscular HGB Conc 32.9 % (30-36); Monocytes Absolute Auto 500 /uL (0-900); Monocytes Percent Auto 9.7 % (3-14); Neutrophils Absolute Auto 3200 /uL (1500-7000); Neutrophils Percent Auto 67.2 % (50-75); Platelet Count 238 X10^3/uL (150-400); Red Blood Cell Count 3.67 X10^6/uL (4.0-5.2); Red Cell Distribution Width 13.5 % (11.6-14.8); White Blood Cell Count 4.8 X10^3/uL (4.5-11.0)
[2021-09-22 06:15] LABS: Albumin 2.7 g/dL (3.5-5.0); BUN Creatinine Ratio 68.1 (6-22); Blood Urea Nitrogen 47 mg/dL (7-17); Calcium 8.8 mg/dL (8.4-10.2); Carbon Dioxide 25 mmol/L (22-32); Chloride 111 mmol/L (98-107); Estimated Glomerular Filt Rate > 60 mL/min (>60); Glucose 197 mg/dL (70-100); HEMOLYSIS < 15 (0-50); Phosphorous 5.9 mg/dL (2.5-4.5); Potassium 4.4 mmol/L (3.4-5.1); Sodium 139 mmol/L (137-145)
[2021-09-22 06:23] LABS: Vitamin D 25 Hydroxy (D3) 14.8 ng/mL (30.0-100.0)
--- NOTE | 2021-09-22 07:24 | PC.NURSE ---
Pt. declining PO medications all shift. States pills does not work. Been administering 1 mg. Of Dilaudid IVP, reported to day RN. Will cont. POC & monitor.
[2021-09-22] MEDS: DOCUSATE 100 MG CAPSULE PO ×2 (08:28→20:06)
[2021-09-22] MEDS: INSULIN GLARGINE 100 UNIT/ML 3ML PEN 25 UNIT SUBCUT ×2 (08:44→20:09)
[2021-09-22] MEDS: INSULIN LISPRO 100 UNIT/ML 3ML VIAL 10 UNIT SUBCUT (08:44)
--- NOTE | 2021-09-22 09:20 | PT.IPTN ---
Current Diagnoses Type 1 diabetes mellitus with ketoacidosis without coma (09/20/21) Fracture of superior rim of right pubis, initial encounter for closed fracture (09/20/21) Other specified fracture of right pubis, initial encounter for closed fracture (09/20/21) Physical Therapy Treatment Note M2 PT-IP Current Condition Start: 09/21/21 13:35 Freq: NEEDED Status: Active Protocol: Document 09/21/21 13:36 AB (Rec: 09/21/21 13:49 [email or web address] Therapy Current Condition Current Condition Evaluation Date 09/21/21 Treatment Diagnosis s/p fall; R pubic rami fx; difficulty in walking Onset Date 09/20/21 M3 PT-IP Subjective Start: 09/21/21 13:35 Freq: NEEDED Status: Active Protocol: Document 09/22/21 09:20 AB (Rec: 09/22/21 11:07 AB [id number]) Subjective Physical Therapy Visit Type Type Treatment Note Visit Start Time 09:20 Visit Stop Time 09:35 Total Visit Minutes 15 Number of GEOSPATIAL INFORMATION TECHNOLOGIST Visits 0 Therapy Pain Assessment Pain When Pain Assessed At Rest Pain Present Pain Present Pain Reported Location Right Hip Intensity 5 Scale Used Numeric (0 - 10) Pain Management Techniques Apply Cold,Distraction, Modification of Treatment,Re- positioning,Timing of Activity with Medications M4 PT-IP Mobility and Gait Start: 09/21/21 13:35 Freq: NEEDED Status: Active Protocol: Document 09/22/21 09:20 AB (Rec: 09/22/21 11:07 AB [id number]) PT-Bed Mobility Assessment Supine to Sit Supine to Sit Standby Assistance,Head of Bed Elevated Sit to Supine Sit to Supine Contact Guard Assistance,Head of Bed Elevated,Bedrails PT-Transfer Assessment Sit to and From Stand Sit to and from Stand Moderate Assistance,1 Person Assistance,Use of Upper Extremities Equipment Transfer Assistive Device Gait Belt,Front Wheeled Walker Orthotic/Prosthetic Devices or Brace: No Comments Mobility Comments pt completed supine to sit SBA with HOB elevated and pt used bed rail to assist. completed sit to stand mod A and ambulated in room ~ 25 ft using FWW min to mod A. pt requested to use the bedside commode. able to complete hygiene care without assistance. completed sit to stand from the commode mod A and wants to go back to bed. ambulated to the bed ~ 10 ft using FWW mod A. completed sit to supine CGA with LE. HOB elevated and pt used bed rail for positioning. pt with unable to put much weight on RLE and unable to have foot flat on the floor. pt stated that she has that problem when she had her ankle surgery ~ a year ago. positioned pt in bed. call light and table placed within reach. Gait Assessment Gait Gait Assistance Required: Minimum Assistance,Moderate Assistance,1 Person Assist Distance (Feet) 25 Able to Maintain Weight Bearing Status Yes During Gait Assistive Devices Assistive Device Gait Belt,Front Wheeled Walker Orthotic/Prosthetic Devices or Brace: No Gait Deviations General Gait Pattern Antalgic,Decreased Stride Length,Decreased Feet Clearance,Step-to Gait Factors Limiting Gait Function Factors Limiting Gait Function Decreased Activity Tolerance, Decreased Strength,Limited Range of Motion,Pain,Poor Balance,Poor Safety Awareness M5 PT-IP Objective Assessments Start: 09/21/21 13:35 Freq: NEEDED Status: Active Protocol: Document 09/21/21 13:36 AB (Rec: 09/21/21 13:49 [email or web address] Orientation Orientation/Cognition Level of Alertness Alert Orientation Name,Place,Situation Language Function Ability No Deficits Noted Safety Awareness Decreased Safety Awareness Memory Description No Deficits Noted Gross Range of Motion Lower Extremity ROM Impairments RLE pain limiting mobility Strength Comments Strength Comments pain limiting movement on BLE Muscle Tone Muscle Tone WNL Yes M6 PT-IP Treatment Start: 09/21/21 13:35 Freq: NEEDED Status: Active Protocol: Document 09/22/21 09:20 AB (Rec: 09/22/21 11:07 AB [id number]) Physical Therapy Treatment Education Education Provided Safety M7 PT-IP Assessment and Plan Start: 09/21/21 13:35 Freq: NEEDED Status: Active Protocol: Document 09/22/21 09:20 AB (Rec: 09/22/21 11:07 AB [email or web address]) PT Summary Assessment and Plan Potential Rehabilitation Potential Fair Summary Impairments Pain,ROM,Strength,Balance, Coordination,Sensation,Tone, Cognition,Bed Mobility, Transfers,Gait,Activity Tolerance Progress Towards Goals Slow Progress due to Pain Assessment Summary pt progressing slowly and able to ambulate today using FWW. requires mod A with transfers/ ambulation using FWW. d/c plan depending on progress but pt at this time will require SNF rehab. will continue to assess for safe d/c plan. Goals Bed Mobility Goal Standby Assistance Transfer Goal Standby Assistance,Front Wheeled Walker Gait Goal Standby Assistance,Front Wheel Walker Gait Distance 100 Other Goals improve bed mobility, transfers using FWW mod I improve ambulation using FWW mod I ~ 200 ft up/down 5 steps MULTIPLE DRUM SANDER HELPER/SPC CGA Days to Meet Goals 10 Frequency of Treatment Frequency Of Treatment Once a Day Treatment Plan Physical Therapy Treatment Plan Bed Mobility Training,Transfer Training,Gait Training, Therapeutic Exercise,Balance Retraining,Discharge Planning, Hot or Cold Pack,Neuromuscular Re-ed,Coordination Retraining ,Manual Therapy Weight Bearing Status Weight Bearing Status Weight Bear as Tolerated Allowed Weight Bearing Amount (enter % RLE WBAT or #) (%) Recommendations To Nursing Amount of Assist Needed 1 Person Assist Discharge Recommendations PT Discharge Recommendations Home with 12/11 Assist Available,Home Health,SNF Rehab,Home vs SNF Equipment Needed for Home Before FWW Discharge Transportation Needs at Discharge Private Vehicle
--- NOTE | 2021-09-22 11:46 | OT.IP.TRT ---
Current Diagnoses Type 1 diabetes mellitus with ketoacidosis without coma (09/20/21) Fracture of superior rim of right pubis, initial encounter for closed fracture (09/20/21) Other specified fracture of right pubis, initial encounter for closed fracture (09/20/21) Occupational Therapy Treatment Note M2 OT-IP Current Condition Start: 09/21/21 14:13 Freq: Status: Active Protocol: Document 09/21/21 13:30 [facility] (Rec: 09/21/21 14:33 [facility] [id number]) Occupational Therapy Current Condition Current Condition Evaluation Date 09/21/21 Treatment Diagnosis Minimally displaced fractures of the right superior/inferior pubic rami Diagnosis Onset Date 09/20/21 Weight Bearing Status Weight Bearing Status Weight Bear as Tolerated Allowed Weight Bearing Amount (enter % Per Orthro consult , pt is or #) (%) WBAT M3 OT- IP Subjective and Pain Start: 09/21/21 14:13 Freq: Status: Active Protocol: Document 09/22/21 11:17 [facility] (Rec: 09/22/21 12:12 [facility] [id number]) OT- Subjective Occupational Therapy Visit Type Type Treatment Note Visit Start Time 11:17 Visit Stop Time 11:46 Total Visit Minutes 29 Occupational Therapy Visit Comments Patient Comments Pt agreed to get up to the recliner. Patient/Caregiver Goals To get better. OT Pain Assessment Pain When Pain Assessed During Mobility Pain Present Pain Present Pain Reported Location Right Hip Pain Behaviors Crying,Facial Grimacing, Guarding,Moaning M5 OT- IP IADL's Start: 09/21/21 14:13 Freq: Status: Active Protocol: Document 09/21/21 13:30 [facility] (Rec: 09/21/21 14:33 [facility] [id number]) OT-Instrumental Activities of Daily Living Home Safety Awareness Awareness of Need for Assistance at Home Good Awareness M6 OT- IP Functional Cognition Start: 09/21/21 14:13 Freq: Status: Active Protocol: Document 09/22/21 11:17 [facility] (Rec: 09/22/21 12:12 [facility] [id number]) Cognitive Factors Limiting Selfcare Function Cognitive Ability Level of Alertness Alert Patient Orientation Name,Age,Birthday,Month,Date, Year,Day of Week,Place, Situation Attention Span Ability Capable of Focused Attention, Capable of Sustained Attention Ability to Follow Commands Able to Follow One Step Commands Cognitive Comments Cognitive Assessment Comments Pt still needing encouragement , very tearful but able to follow directions for mobility today. M7 OT- IP Mobility and Balance Start: 09/21/21 14:13 Freq: Status: Active Protocol: Document 09/22/21 11:17 [facility] (Rec: 09/22/21 12:12 [facility] [id number]) OT- Bed Mobility Assessment Supine to Sit Supine to Sit Assist Standby Assistance,Head of Bed Elevated,Bedrails Scooting Scooting to Edge of Bed Moderate Assistance OT-Transfer Assessment Sit to and From Stand Sit to and from Stand Minimal Assistance,Moderate Assistance Transfers Transfer Ability Minimal Assistance Technique Transfer Destination Bed,Chair Transfer Technique Stand Step Pivot Devices Transfer Assistive Devices Gait Belt,Front Wheeled Walker Comments Mobility Comments Increased time to get to the edge of the bed , MOD A x1 to scoot to the edge of the bed and LAZARUS/MODA to stand to the FWW and transfer to the recliner. OT- Balance Assessment Sitting Balance and Reactions Static Sitting Balance Ability Good Dynamic Sitting Balance Ability Fair Standing Balance and Reactions Static Standing Balance Ability Fair M8 OT- IP Objective Assessments Start: 09/21/21 14:13 Freq: Status: Active Protocol: Document 09/21/21 13:30 [facility] (Rec: 09/21/21 14:33 [facility] [id number]) OT Gross Range of Motion Upper Extremity Range of Motion Assessment Within Functional Limits OT-Muscle Tone Assessment Muscle Tone WNL Yes M9 OT- IP Assessment and Plan Start: 09/21/21 14:13 Freq: Status: Active Protocol: Document 09/22/21 11:17 [facility] (Rec: 09/22/21 12:12 [facility] [id number]) OT Summary Assessment and Plan Potential Rehabilitation Potential Good Analytic Complexity at Evaluation Moderate Summary OT Impairments Pain,Strength,Balance, Functional Mobility,Dressing, Toileting,Bathing,Toilet Transfers,Shower Transfers Progress Towards Goals Progressing Toward Goals,Slow Progress due to Pain Assessment Summary Pt needing less assist today for bed mobility and transfers . Pt still having lots of pain and not wanting to try use of LB dressing equipment yet, but able to show pt LB dressing equipment to help with her needs. Pt will still benefit from skilled reahb versus home with 24/7 assist and home health. Goals Grooming Goal Independent Dressing Goal Independent Toileting Goal Independent Bathing Goal Independent Toilet Transfer Goal Independent Shower Transfer Goal Independent Days to Meet Goals 19 Frequency of Treatment Frequency Of Treatment Once a Day Treatment Plan OT Treatment Plan ADL Training,Functional Mobility,Patient/Family Education,Discharge Planning Other Treatment Recommendations and Next LB dressing equipment practice Treatment Focus Discharge Recommendations OT Discharge Recommendations Home with 12/11 Assist Available,Home Health,SNF Rehab,Home vs SNF Home Equipment Needs BSC, FWW, tub bench, wc
--- NOTE | 2021-09-22 13:26 | DIET.PN1 ---
Dietary Progress Note Assessment: 31 y/o F familiar to this CDCES/RD. PMH T1DM. Admitted with pubic fx. Agree with RD assessment indicating moderate protein calorie malnutrition in the setting of chronic hyperglycemia. BG have been in goal since admit until today. Readings >200 mg/dL today. Discussed in rounds this morning. Potential for correction prn discussed with pharmacy, though she did have a low BG at noon at 62 mg/dL. Good PO documented. Sarabjit reports her BG have been ranging from 200-400 pretty consistently at home-- consistent with continued HgA1c >14%. No Dm technologies, ie CGM or pump. Seems to be questioning going on a CGM now based on worries for inaccurate readings. Endorses frequent take-out eating r/t nina works long shifts and she is often home alone. Still has PCP Celerian managing her DM. Has been referred to OP DSME in the past, but she voluntarily discontinued program. She has a h/o difficulty with dosing insulin based on food intake and correction. Historically very worried about lows, despite h/o chronic hyperglycemia. States she would like to be between 100-110#. This would be an improvement to usual BW when admitted. Stage of change is a barrier for Dm management. Ht: 154.94 cm Wt: 45 kg BMI: 18.8 Last BM: 09/19/21 (09/20/21 02:14) MNA: 11 Carmelo Score: 17 Diet: 09/20/21 Breakfast Carbohydrate Consistent Diet Diet Modifications: glucerna bid to be consumed between meals Carbohydrate level: Medium (3 CHO) Bedtime snack: Yes Nutrition Percent Meal Consumed 75% 09/22/21 09:12 Percent Meal Consumed 75% 09/21/21 18:00 Percent Meal Consumed 100% 09/21/21 09:17 Labs: RBC 3.67 X10^6/uL (4.0-5.2) L 09/22/21 05:43 Hgb 11.4 g/dL (12.0-16.0) L 09/22/21 05:43 Hct 34.5 % (36-46) L 09/22/21 05:43 Creatinine 0.69 mg/dL (0.52-1.04) 09/22/21 05:43 Hemoglobin A1c > 14.0 % (4.0-6.0) H 09/21/21 05:40 Nutrition Diagnosis: Chronic Moderate Malnutrition r/t endocrine dysfunction and poorly managed DM aeb pt admitted after GLF resulting in pubic rami fx, pt c hx A1c >14 x3+ y with admit BG >400 and frequent hospitalizations for DKA, pt with recent weight gain but chronic hx BMI <18. Interventions: 1. Cont sending glucerna BID 2. Discussed: impact of hyperglycemia on healing and muscle wasting / ability to maintain healthy wt; Barriers and feelings on CGM use, as well as how CGM can be used as a tool with finger sticks 3. Offered return to OP DSME but Sarabjit seems to feel that she can manage and has a PCP visit this month. 4. Rec keeping BG 140-180 mg/dL to support healing Monitoring/Evaluations: consult prn Electronically Signed by: Iliana Noguera 09/22/21 13:26 Clinical Dietitian [address] [address]
[2021-09-22] MEDS: HYDROCODONE/ACET 5/325 TABLET 1 TAB PO (14:00)
[2021-09-22 15:05] VITALS: BP 145/91; PULSE 121; RESP 20; TEMP 36.7; O2SAT 97
--- NOTE | 2021-09-22 15:35 | P.PN_ITS ---
Subjective Subjective Interval history: Hospitalist daily visit. Patient has been doing more walking in the room and going to the bathroom on her own but has had increased pain and requiring increased pain medication. Could not tolerate being at home at this level of discomfort. Would like to regroup tomorrow. Exam Vital Signs (past 8 hours): - 09/22/21 15:05 Temperature 98.0 F Pulse Rate 121 H Respiratory Rate 20 Blood Pressure 145/91 H Pulse Oximetry 97 Oxygen Delivery Method Room Air Oxygen Flow Rate 0 Narrative Exam Narrative: Patient alert oriented to time place and person HEENT: Pupils pupils equal reactive light, extraocular movements normal. Cardiovascular: Heart sounds S1 and S2 Respiratory: Chest is clear to auscultation Gastrointestinal: Abdomen soft nontender bowel sounds normal Musculoskeletal: Tenderness of the right superior and inferior rami. Movement of the right hip area is aggravating to the pain. Neuro: Normal sensation of extremities. Objective Labs Result Diagrams: 09/22/21 05:43 09/22/21 05:43 Labs: Laboratory Results - last 24 hr 09/22/21 09/22/21 09/22/21 05:43 05:43 05:43 WBC 4.8 RBC 3.67 L Hgb 11.4 L Hct 34.5 L MCV 94.0 MCH 31.0 MCHC 32.9 RDW 13.5 Plt Count 238 Neut % (Auto) 67.2 Lymph % (Auto) 21.4 L [place] % (Auto) 9.7 Eos % (Auto) 1.3 L Baso % (Auto) 0.4 Neut # (Auto) 3200 Lymph # (Auto) 1000 L [place] # (Auto) 500 Eos # (Auto) 100 Baso # (Auto) 0 Sodium 139 Potassium 4.4 Chloride 111 H Carbon Dioxide 25 BUN 47 H Creatinine 0.69 Estimated GFR > 60 BUN/Creatinine Ratio 68.1 H Glucose 197 H Calcium 8.8 Phosphorus 5.9 H Albumin 2.7 L 25-OH Vitamin D Total 14.8 L PFSH Medical History DKA (diabetic ketoacidoses) History of pyelonephritis Irregular menstrual cycle Migraine headache Nephrolithiasis Noncompliance w/medication treatment due to intermit use of medication Type 1 diabetes mellitus Surgical History History of ureter stent Hx of cataract surgery Hx of local excision of skin lesion Status post laser lithotripsy of ureteral calculus [place] teeth extracted Family History Father In good health Mother Cardiac disease Social History details: Engaged household members: significant other Smoking Status: Never smoker alcohol intake: never Assessment & Plan Assessment & Plan narrative: 31-year-old female with poorly controlled type 1 diabetes admitted with a right superior and inferior minimally displaced pubic rami fracture 1. Right, minimally displaced pubic rami fractures - sup and inf rami Pain control is adequate. Patient requiring more pain medication because doing more. Ortho has seen the patient and confirm no surgery. Activity as tolerated. 2. Type 1 diabetes, very fragile poor control with repeated hospitalizations for diabetic ketoacidosis. Is actually doing quite well with a normal anion gap of 11 on this admission Continue her outpatient regimen and will continue to monitor blood sugars closely as well as electrolytes. Sodium potassium normal today. GFR and creatinine are normal today. 3.? Tachycardia suspect related to pain Still elevated.? Consistent with elevated pain. 4. History of nephrolithiasis without current problems 5.?History of acute kidney injury without current problems and currently normal GFR. The further time to get in prove ability without significant increase in pain he required significant pain medication. Continue to evaluate daily possible discharge. Follow clinically. Time Spent With Patient Critical Care time: I spent a total of [] minutes of critical care time on this patient's care today; this time is exclusive of procedural time.
[2021-09-22] MEDS: INSULIN LISPRO 100 UNIT/ML 3ML VIAL SUBCUT ×3 (18:02→20:09)
--- NOTE | 2021-09-22 19:39 | PM.DS.1 ---
History of Present Illness History of Present Illness Chief complaint: GLF / Lt hip pain Discharge Providers Provider Date of admission: 09/20/21 01:25 Primary care physician: Maria Ines Limon DO Consults: 09/20/21 02:19 Consult to Dietitian, Adult Routine Comment: Reason For Exam: low BMI, weight increasing since last admit 09/20/21 06:13 Consult to Discharge Planning Routine Comment: Consult to Occupational Therapy Evaluate & Treat Comment: Physician Instructions: Evaluate and treat Consult to Physical Therapy Evaluate & Treat Comment: Physician Instructions: Evaluate and Treat Consult to Physician Routine Comment: Consulting Provider: Jimena Bolden Reason for consultation: pubic rami fracture Has provider been notified: No Discharge provider: Liane Briceno MD Exam Vital Signs (past 8 hours): - 09/22/21 15:05 Temperature 98.0 F Pulse Rate 121 H Respiratory Rate 20 Blood Pressure 145/91 H Pulse Oximetry 97 Oxygen Delivery Method Room Air Oxygen Flow Rate 0 Objective Labs Result Diagrams: 09/22/21 05:43 09/22/21 05:43 Labs: Laboratory Results - last 24 hr 09/22/21 09/22/21 09/22/21 05:43 05:43 05:43 WBC 4.8 RBC 3.67 L Hgb 11.4 L Hct 34.5 L MCV 94.0 MCH 31.0 MCHC 32.9 RDW 13.5 Plt Count 238 Neut % (Auto) 67.2 Lymph % (Auto) 21.4 L [place] % (Auto) 9.7 Eos % (Auto) 1.3 L Baso % (Auto) 0.4 Neut # (Auto) 3200 Lymph # (Auto) 1000 L [place] # (Auto) 500 Eos # (Auto) 100 Baso # (Auto) 0 Sodium 139 Potassium 4.4 Chloride 111 H Carbon Dioxide 25 BUN 47 H Creatinine 0.69 Estimated GFR > 60 BUN/Creatinine Ratio 68.1 H Glucose 197 H Calcium 8.8 Phosphorus 5.9 H Albumin 2.7 L 25-OH Vitamin D Total 14.8 L PFSH Medical History DKA (diabetic ketoacidoses) History of pyelonephritis Irregular menstrual cycle Migraine headache Nephrolithiasis Noncompliance w/medication treatment due to intermit use of medication Type 1 diabetes mellitus Surgical History History of ureter stent Hx of cataract surgery Hx of local excision of skin lesion Status post laser lithotripsy of ureteral calculus [place] teeth extracted Family History Father In good health Mother Cardiac disease Social History details: Engaged household members: significant other Smoking Status: Never smoker alcohol intake: never Discharge Plan Discharge Plan Patient Disposition: Home Discharge orders & Medications Prescriptions: No Action glucose 4 gram tablet,chewable 4 gram PO Q15M PRN (Reason: hypoglycemia) Qty: 30 0RF Rx Instructions: until response Glucagon Emergency Kit (human) 1 mg recon soln 1 mg subcut DIRECTED 0RF insulin aspart U-100 [Novolog Flexpen U-100 Insulin] 100 unit/mL (3 mL) insulin pen 10 unit SUBCUT AC 0RF Rx Instructions: Pt states she uses 10 units plus a sliding scale based on her blood sugar. She is vague in response to exact # over 10 units. diphenhydramine HCl 50 mg Capsule 50 mg PO BEDTIME PRN (Reason: Sleep) 0RF Rx Instructions: for itching and sleep Lantus Solostar U-100 Insulin 100 unit/mL (3 mL) Insulin Pen 25 unit SUBCUT BID 10 Days Qty: 5 2RF insulin aspart U-100 [Novolog U-100 Insulin aspart] 100 unit/mL solution 1 sliding scale dose SUBCUT USEASDIRECTD Qty: 10 2RF Rx Instructions: USE SLIDING SCALE PLS Follow up/Referrals: Maria Ines Limon DO [Primary Care Provider] - Discharge Data Primary Care Provider: Maria Ines Limon Attending Provider: Liane Briceno
--- NOTE | 2021-09-22 19:40 | P.PN_ITS ---
Subjective Subjective Interval history: Daily hospitalist visit. Patient doing more but then has more pain and needs more pain medicine. Trying to improve and is improving with her mobility. No complaints other than pain. Exam Vital Signs (past 8 hours): - 09/22/21 15:05 Temperature 98.0 F Pulse Rate 121 H Respiratory Rate 20 Blood Pressure 145/91 H Pulse Oximetry 97 Oxygen Delivery Method Room Air Oxygen Flow Rate 0 Narrative Exam Narrative: Patient alert oriented to time place and person HEENT: Pupils equal react to light extraocular movements normal. Cardiovascular: Heart sounds normal. Respiratory: Clear to auscultation. Gastrointestinal: Abdomen is soft. Nontender. Musculoskeletal: Tender right inferior and superior pubic rami. Able to move all extremities volitionally Objective Labs Result Diagrams: 09/22/21 05:43 09/22/21 05:43 Labs: Laboratory Results - last 24 hr 09/22/21 09/22/21 09/22/21 05:43 05:43 05:43 WBC 4.8 RBC 3.67 L Hgb 11.4 L Hct 34.5 L MCV 94.0 MCH 31.0 MCHC 32.9 RDW 13.5 Plt Count 238 Neut % (Auto) 67.2 Lymph % (Auto) 21.4 L [place] % (Auto) 9.7 Eos % (Auto) 1.3 L Baso % (Auto) 0.4 Neut # (Auto) 3200 Lymph # (Auto) 1000 L [place] # (Auto) 500 Eos # (Auto) 100 Baso # (Auto) 0 Sodium 139 Potassium 4.4 Chloride 111 H Carbon Dioxide 25 BUN 47 H Creatinine 0.69 Estimated GFR > 60 BUN/Creatinine Ratio 68.1 H Glucose 197 H Calcium 8.8 Phosphorus 5.9 H Albumin 2.7 L 25-OH Vitamin D Total 14.8 L PFSH Medical History DKA (diabetic ketoacidoses) History of pyelonephritis Irregular menstrual cycle Migraine headache Nephrolithiasis Noncompliance w/medication treatment due to intermit use of medication Type 1 diabetes mellitus Surgical History History of ureter stent Hx of cataract surgery Hx of local excision of skin lesion Status post laser lithotripsy of ureteral calculus [place] teeth extracted Family History Father In good health Mother Cardiac disease Social History details: Engaged household members: significant other Smoking Status: Never smoker alcohol intake: never Assessment & Plan Assessment & Plan narrative: 31-year-old female with poorly controlled type 1 diabetes admitted with a right superior and inferior minimally displaced pubic rami fracture 1. Right, minimally displaced pubic rami fractures - sup and inf rami Pain control is adequate.? Patient requiring more pain medication because doing more.?? Activity as tolerated. As pain and activity improve in the next day or 2, patient can be discharged. 2. Type 1 diabetes, very fragile poor control with repeated hospitalizations for diabetic ketoacidosis. Is actually doing quite well with a normal anion gap of 11 on this admission Continue her outpatient regimen and will continue to monitor blood sugars closely as well as electrolytes.? Sodium potassium normal today.? GFR and creatinine are normal today. 3.? Tachycardia suspect related to pain Still elevated.? Consistent with elevated pain. 4. History of nephrolithiasis without current problems 5.?History of acute kidney injury without current problems and currently normal GFR Expect discharge within the next couple days once the patient able to mobilize more with adequate pain control. Time Spent With Patient Critical Care time: I spent a total of [] minutes of critical care time on this patient's care today; this time is exclusive of procedural time.
[2021-09-22] MEDS: SENNOSIDES 8.6 MG TABLET 17.2 MG PO (20:05)
[2021-09-22 20:16] VITALS: BP 114/74; PULSE 118; RESP 16; TEMP 37; O2SAT 96
[2021-09-22] MEDS: HYDROMORPHONE 1 MG INJ IV (20:55)
--- NOTE | 2021-09-22 20:57 | P.PN_ITS ---
Exam Vital Signs (past 8 hours): - 09/22/21 15:05 09/22/21 20:16 Temperature 98.0 F 98.6 F Pulse Rate 121 H 118 H Respiratory Rate 20 16 Blood Pressure 145/91 H 114/74 Pulse Oximetry 97 96 Oxygen Delivery Method Room Air Oxygen Flow Rate 0 Objective Labs Result Diagrams: 09/22/21 05:43 09/22/21 05:43 Labs: Laboratory Results - last 24 hr 09/22/21 09/22/21 09/22/21 05:43 05:43 05:43 WBC 4.8 RBC 3.67 L Hgb 11.4 L Hct 34.5 L MCV 94.0 MCH 31.0 MCHC 32.9 RDW 13.5 Plt Count 238 Neut % (Auto) 67.2 Lymph % (Auto) 21.4 L [place] % (Auto) 9.7 Eos % (Auto) 1.3 L Baso % (Auto) 0.4 Neut # (Auto) 3200 Lymph # (Auto) 1000 L [place] # (Auto) 500 Eos # (Auto) 100 Baso # (Auto) 0 Sodium 139 Potassium 4.4 Chloride 111 H Carbon Dioxide 25 BUN 47 H Creatinine 0.69 Estimated GFR > 60 BUN/Creatinine Ratio 68.1 H Glucose 197 H Calcium 8.8 Phosphorus 5.9 H Albumin 2.7 L 25-OH Vitamin D Total 14.8 L PFSH Medical History DKA (diabetic ketoacidoses) History of pyelonephritis Irregular menstrual cycle Migraine headache Nephrolithiasis Noncompliance w/medication treatment due to intermit use of medication Type 1 diabetes mellitus Surgical History History of ureter stent Hx of cataract surgery Hx of local excision of skin lesion Status post laser lithotripsy of ureteral calculus [place] teeth extracted Family History Father In good health Mother Cardiac disease Social History details: Engaged household members: significant other Smoking Status: Never smoker alcohol intake: never Assessment & Plan Assessment & Plan narrative: Documentation of agreement with dietitian/Nutrition assessment Assessment as follows: Nutrition Dx:?Chronic Moderate Malnutrition?r/t endocrine dysfunction and poorly managed DM aeb pt admitted after GLF resulting in pubic rami fx, pt c hx A1c >14 x3+ y with admit BG >400 and frequent hospitalizations for DKA, pt with recent weight gain but chronic hx BMI <18. Intervention: Sending ONS Glucerna bid to support nutrient needs for healing in addition to meal trays. As the treating physician I am in agreement with the above assessment. The moderate amount of nutrition is a component of why the patient had the fracture in the 1st place. Her poorly controlled diabetes and difficult to manage diabetes, makes progress with mobility difficult. This contributes to the length of stay in the hospital. Time Spent With Patient Critical Care time: I spent a total of [] minutes of critical care time on this patient's care today; this time is exclusive of procedural time.
[2021-09-22] MEDS: diphenhydrAMINE 25 MG TABLET 50 MG PO (21:50)
[2021-09-23] MEDS: HYDROMORPHONE 1 MG INJ IV ×4 (00:57→13:40)
[2021-09-23] MEDS: SODIUM CHLORIDE 0.9% FLUSH 10 ML IV ×5 (00:57→20:53)
[2021-09-23] MEDS: KETOROLAC 30 MG/ML VIAL 15 MG IV ×3 (02:35→20:47)
[2021-09-23 04:44] VITALS: BP 116/77; RESP 17; TEMP 37; O2SAT 94
[2021-09-23] MEDS: PANTOPRAZOLE DR 20 MG TABLET PO (05:22)
[2021-09-23 05:39] LABS: Albumin 2.7 g/dL (3.5-5.0); BUN Creatinine Ratio 77.8 (6-22); Blood Urea Nitrogen 42 mg/dL (7-17); Calcium 8.8 mg/dL (8.4-10.2); Carbon Dioxide 25 mmol/L (22-32); Chloride 111 mmol/L (98-107); Estimated Glomerular Filt Rate > 60 mL/min (>60); Glucose 113 mg/dL (70-100); HEMOLYSIS < 15 (0-50); Phosphorous 5.3 mg/dL (2.5-4.5); Potassium 4.3 mmol/L (3.4-5.1); Sodium 140 mmol/L (137-145)
[2021-09-23 09:00] VITALS: BP 156/108; PULSE 94; RESP 18; TEMP 36.4; O2SAT 94
[2021-09-23] MEDS: DOCUSATE 100 MG CAPSULE PO ×2 (09:37→20:46)
[2021-09-23] MEDS: INSULIN GLARGINE 100 UNIT/ML 3ML PEN 25 UNIT SUBCUT ×2 (09:54→20:57)
--- NOTE | 2021-09-23 10:45 | PT-IP ANOTE ---
Attempted to see pt at 10:45 AM, pt refused therapy due to pain despite recent pain medication. She also reports high level of fatigue. Pt agreeable for PT to check back after lunch.
[2021-09-23] MEDS: INSULIN LISPRO 100 UNIT/ML 3ML VIAL SUBCUT ×4 (13:13→17:33)
[2021-09-23 14:11] VITALS: BP 105/64; PULSE 118; RESP 16; TEMP 37.6; O2SAT 94
--- NOTE | 2021-09-23 14:27 | PT.IPTN ---
Current Diagnoses Type 1 diabetes mellitus with ketoacidosis without coma (09/20/21) Fracture of superior rim of right pubis, initial encounter for closed fracture (09/20/21) Other specified fracture of right pubis, initial encounter for closed fracture (09/20/21) Physical Therapy Treatment Note M2 PT-IP Current Condition Start: 09/21/21 13:35 Freq: NEEDED Status: Active Protocol: Document 09/21/21 13:36 AB (Rec: 09/21/21 13:49 AB [id number]) Physical Therapy Current Condition Current Condition Evaluation Date 09/21/21 Treatment Diagnosis s/p fall; R pubic rami fx; difficulty in walking Onset Date 09/20/21 M3 PT-IP Subjective Start: 09/21/21 13:35 Freq: NEEDED Status: Active Protocol: Document 09/23/21 14:04 KS (Rec: 09/23/21 14:52 KS [id number]) Subjective Physical Therapy Visit Type Type Treatment Note Visit Start Time 14:05 Visit Stop Time 14:27 Total Visit Minutes 22 Number of SOUND CONTROLLER Visits 1 Therapy Pain Assessment Pain When Pain Assessed During Mobility Pain Present Pain Present Pain Reported Location Pelvis Scale Used not quantified Pain Behaviors Crying,Facial Grimacing, Guarding,Moaning,Restlessness, Wincing Pain Management Techniques Distraction,Elevation, Modification of Treatment,Re- positioning,Timing of Activity with Medications M4 PT-IP Mobility and Gait Start: 09/21/21 13:35 Freq: NEEDED Status: Active Protocol: Document 09/23/21 14:04 KS (Rec: 09/23/21 14:52 KS [id number]) PT-Bed Mobility Assessment Supine to Sit Supine to Sit Standby Assistance,Head of Bed Elevated Sit to Supine Sit to Supine Moderate Assistance,1 Person Assistance,Head of Bed Elevated Scooting Scooting to Edge of Bed Minimal Assistance PT-Transfer Assessment Sit to and From Stand Sit to and from Stand Minimal Assistance,1 Person Assistance,Use of Upper Extremities Equipment Transfer Assistive Device Gait Belt,Front Wheeled Walker Orthotic/Prosthetic Devices or Brace: No Transfers Transfer Destination Bedside Commode Transfer Technique Stand Step Pivot Transfer Ability Level of Assist Minimal Assistance,Moderate Assistance,1 Person Assistance ,Use of Upper Extremities Comments Mobility Comments Pt in bed upon arrival and requesting to use BSC. SBA for sup<>sit w/ HOB elevated, Mod A for scooting to EOB. Min A for sit<>Stand w/ FWW and stand step pivot to BSC. After voiding, pt required Min A for sit<>Stand from BSC and she then ambulated ~20 ft w/ FWW CGA. Heavy WB through BUE to off weight R side and pt unable to lower heel to floor at baseline d/t previous ankle surgery. Pt tearful and c/o increased pain during ambulation and requested to get back into bed. Mod A for sup<>sit in bed. Pt left in bed w/ all needs in reach. Gait Assessment Gait Gait Assistance Required: Contact Guard Assist,1 Person Assist Distance (Feet) 20 Able to Maintain Weight Bearing Status Yes During Gait Assistive Devices Assistive Device Gait Belt,Front Wheeled Walker Orthotic/Prosthetic Devices or Brace: No Gait Deviations General Gait Pattern Antalgic,Decreased Stride Length,Decreased Feet Clearance,Step-to Gait Factors Limiting Gait Function Factors Limiting Gait Function Decreased Activity Tolerance, Decreased Strength,Limited Range of Motion,Pain,Poor Balance,Poor Safety Awareness Comments Gait Comments Please refer to mobility section for details. Stair Climbing Assessment Comments Stair Climbing Comments Unable at this time. Pt has 6 PAOLA at her mom's house. PT-Balance Assessment Sitting Balance and Reactions Static Sitting Balance Ability Good Dynamic Sitting Balance Ability Good Standing Balance and Reactions Static Standing Balance Ability Fair Dynamic Standing Balance Ability Fair Device Used FWW M5 PT-IP Objective Assessments Start: 09/21/21 13:35 Freq: NEEDED Status: Active Protocol: Document 09/21/21 13:36 AB (Rec: 09/21/21 13:49 AB [id number]) Orientation Orientation/Cognition Level of Alertness Alert Orientation Name,Place,Situation Language Function Ability No Deficits Noted Safety Awareness Decreased Safety Awareness Memory Description No Deficits Noted Gross Range of Motion Lower Extremity ROM Impairments RLE pain limiting mobility Strength Comments Strength Comments pain limiting movement on BLE Muscle Tone Muscle Tone WNL Yes M6 PT-IP Treatment Start: 09/21/21 13:35 Freq: NEEDED Status: Active Protocol: Document 09/23/21 14:04 KS (Rec: 09/23/21 14:52 KS [id number]) Physical Therapy Treatment Exercises Exercises Ankle Pumps,Gluteal Sets Education Education Provided Safety Other Treatments Other Treatment Performed Discussed DME and equipment rental w/ pts mom. At this time, pt will need w/c and BSC . M7 PT-IP Assessment and Plan Start: 09/21/21 13:35 Freq: NEEDED Status: Active Protocol: Document 09/23/21 14:04 KS (Rec: 09/23/21 14:52 KS [id number]) PT Summary Assessment and Plan Potential Rehabilitation Potential Fair Summary Impairments Pain,ROM,Strength,Balance, Coordination,Sensation,Tone, Cognition,Bed Mobility, Transfers,Gait,Activity Tolerance Progress Towards Goals Slow Progress due to Pain Assessment Summary Pt continues to make slow progress. Min to Mod A for most bed mobility, Min A for sit<>stand and transfer, CGA for 20 ft ambulation today. Pt unable to tolerate further ambulation due to pain. Being that she is unable to stand on her own and has very limited assist at home, recommending SNF to improve functional mobility independence. Will continue to progress. If pt goes home, she will need increased assist, HHPT, and likely BLS transport d/t stairs. Goals Bed Mobility Goal Standby Assistance Transfer Goal Standby Assistance,Front Wheeled Walker Gait Goal Standby Assistance,Front Wheel Walker Gait Distance 100 Other Goals improve bed mobility, transfers using FWW mod I improve ambulation using FWW mod I ~ 200 ft up/down 5 steps DRIVER OPERATOR/SPC CGA Days to Meet Goals 10 Frequency of Treatment Frequency Of Treatment Once a Day Treatment Plan Physical Therapy Treatment Plan Bed Mobility Training,Transfer Training,Gait Training, Therapeutic Exercise,Balance Retraining,Discharge Planning, Hot or Cold Pack,Neuromuscular Re-ed,Coordination Retraining ,Manual Therapy Weight Bearing Status Weight Bearing Status Weight Bear as Tolerated Allowed Weight Bearing Amount (enter % RLE WBAT or #) (%) Recommendations To Nursing Amount of Assist Needed 1 Person Assist Discharge Recommendations PT Discharge Recommendations Home with 12/11 Assist Available,Home Health,SNF Rehab,Home vs SNF Equipment Needed for Home Before FWW Discharge Transportation Needs at Discharge Private Vehicle
--- NOTE | 2021-09-23 14:39 | CM.DPNOTE ---
DCP Note Patient discussed in multidisciplinary rounds daily since admission This GLASS CUTTING MACHINE FEEDER advocating for DC home w/family and HH services, as discussed with patient and family 6.1.22. Patient remains observation status. Therapy team concerned that patient will be discharging home w/o 12/11 assist, however, patient is not a candidate for SNF at this time, has [employer] [facility] coverage and is 31 yo- wants to return home Provider yesterday and today concerned that patient is in too much pain, patient tearful throughout the day and has refused therapies d/t complaints of pain and feeling tired Plan: Upon provider's medical discharge- DC home w/family and aissatou HH services (referral faxed today), suggested DME will need to be secured by family JW
--- NOTE | 2021-09-23 14:50 | OT.IPNOTE ---
Attempted to see pt for OT treatment and able to touch base again with pt and her mother regarding equipment needs of BSC, wc, hospital bed?, LB dressing equipment, and FWW. Pt states too tired from just working with PT and not wanting to get up again with OT. NO charge
--- NOTE | 2021-09-23 16:33 | P.PN_ITS ---
Subjective Subjective Date Patient Seen: 09/23/21 Interval history: Patient complaining of uncontrolled pain and inability to mobilize out of bed. Exam Vital Signs (past 8 hours): - 09/23/21 09:00 09/23/21 14:11 Temperature 97.6 F 99.6 F Pulse Rate 94 H 118 H Respiratory Rate 18 16 Blood Pressure 156/108 H 105/64 Pulse Oximetry 94 94 Oxygen Delivery Method Room Air Oxygen Flow Rate 0 Narrative Exam Narrative: Patient is crying and complaining of severe pain. Has exaggerated pain response with just barely touching her lower legs. Objective Labs Result Diagrams: 09/22/21 05:43 09/23/21 05:09 Labs: Laboratory Results - last 24 hr 09/23/21 05:09 Sodium 140 Potassium 4.3 Chloride 111 H Carbon Dioxide 25 BUN 42 H Creatinine 0.54 Estimated GFR > 60 BUN/Creatinine Ratio 77.8 H Glucose 113 H Calcium 8.8 Phosphorus 5.3 H Albumin 2.7 L PFSH Medical History DKA (diabetic ketoacidoses) History of pyelonephritis Irregular menstrual cycle Migraine headache Nephrolithiasis Noncompliance w/medication treatment due to intermit use of medication Type 1 diabetes mellitus Surgical History History of ureter stent Hx of cataract surgery Hx of local excision of skin lesion Status post laser lithotripsy of ureteral calculus [place] teeth extracted Family History Father In good health Mother Cardiac disease Social History details: Engaged household members: significant other Smoking Status: Never smoker alcohol intake: never Assessment & Plan Assessment & Plan narrative: 1. Right minimally displaced superior and inferior pubic rami fractures -continue mobilizing with PT and OT -stop IV pain meds -hydromorphone 1-2 mg p.o. q.4 hours as needed -work towards getting home tomorrow, has 6 steps to get into her house 2. Type 1 diabetes -not in DKA -glucose here in controlled range -continue current insulin management and monitoring Time Spent With Patient Critical Care time: I spent a total of [] minutes of critical care time on this patient's care today; this time is exclusive of procedural time.
[2021-09-23] MEDS: HYDROMORPHONE 4 MG TABLET PO ×2 (17:50→21:58)
[2021-09-23 20:45] VITALS: BP 124/82; PULSE 126; RESP 18; TEMP 36.5; O2SAT 93
[2021-09-23] MEDS: SENNOSIDES 8.6 MG TABLET 17.2 MG PO (20:46)
--- NOTE | 2021-09-23 22:05 | PC.NURSE ---
Pt asked for pain meds, brought hydromorphone 4 mg. Pt stated that it doesnt work for her. Refused meds, refused ice, will return in 10 min to reassess.
[2021-09-23] MEDS: diphenhydrAMINE 25 MG TABLET PO (22:13)
[2021-09-24] MEDS: HYDROMORPHONE 4 MG TABLET PO ×3 (03:10→13:28)
[2021-09-24] MEDS: KETOROLAC 30 MG/ML VIAL 15 MG IV ×2 (03:11→08:44)
[2021-09-24] MEDS: PANTOPRAZOLE DR 20 MG TABLET PO (06:40)
[2021-09-24 08:01] VITALS: BP 113/75; PULSE 98; RESP 16; O2SAT 93
[2021-09-24] MEDS: DOCUSATE 100 MG CAPSULE PO (08:43)
[2021-09-24] MEDS: INSULIN GLARGINE 100 UNIT/ML 3ML PEN 25 UNIT SUBCUT (08:44)
--- NOTE | 2021-09-24 10:36 | PT.IPTN ---
Current Diagnoses Type 1 diabetes mellitus with ketoacidosis without coma (09/20/21) Fracture of superior rim of right pubis, initial encounter for closed fracture (09/20/21) Other specified fracture of right pubis, initial encounter for closed fracture (09/20/21) Physical Therapy Treatment Note M2 PT-IP Current Condition Start: 09/21/21 13:35 Freq: NEEDED Status: Active Protocol: Document 09/21/21 13:36 AB (Rec: 09/21/21 13:49 AB [id number]) Physical Therapy Current Condition Current Condition Evaluation Date 09/21/21 Treatment Diagnosis s/p fall; R pubic rami fx; difficulty in walking Onset Date 09/20/21 M3 PT-IP Subjective Start: 09/21/21 13:35 Freq: NEEDED Status: Active Protocol: Document 09/24/21 10:36 AW (Rec: 09/24/21 11:42 AW [id number]) Subjective Physical Therapy Visit Type Type Treatment Note Visit Start Time 10:12 Visit Stop Time 10:36 Total Visit Minutes 24 Notes Pt's mother is present throughout Number of PRODUCTION TECHNOLOGIST Visits 0 Physical Therapy Visit Comments Patient Comments Pt would like to use the commode Therapy Pain Assessment Pain When Pain Assessed During Mobility Pain Present Pain Present Pain Reported Location Pelvis Scale Used Numeric (0 - 10) Pain Behaviors Crying,Facial Grimacing, Guarding,Moaning,Restlessness, Wincing Pain Management Techniques Distraction,Elevation, Modification of Treatment,Re- positioning,Timing of Activity with Medications M4 PT-IP Mobility and Gait Start: 09/21/21 13:35 Freq: NEEDED Status: Active Protocol: Document 09/24/21 10:36 AW (Rec: 09/24/21 11:42 AW [id number]) PT-Bed Mobility Assessment Supine to Sit Supine to Sit Standby Assistance,Head of Bed Elevated,Bedrails Sit to Supine Sit to Supine Minimal Assistance,1 Person Assistance,Head of Bed Elevated,Bedrails Scooting Scooting to Edge of Bed Minimal Assistance PT-Transfer Assessment Sit to and From Stand Sit to and from Stand Contact Guard Assistance, Minimal Assistance,1 Person Assistance,Use of Upper Extremities Equipment Transfer Assistive Device Gait Belt,Front Wheeled Walker Orthotic/Prosthetic Devices or Brace: No Transfers Transfer Destination Bed,Bedside Commode Transfer Ability Level of Assist Minimal Assistance,1 Person Assistance,Use of Upper Extremities Comments Mobility Comments Pt was lying in bed as PT arrived. SBA to complete supine to sit with heavy use of bed features. Pt sat EOB and needed CGA to stand with FWW. She walked 5 feet to the commode and transferred min A. She voided and completed pericare. She needed min A to stand from the commode and agreed to walk around the foot of the bed ~20 feet CGA. She sat on the right side of the bed and needed min A to elevate her legs to the bed. Pt was left with call light and tray table in reach. Gait Assessment Gait Gait Assistance Required: Contact Guard Assist,1 Person Assist Distance (Feet) 20 Able to Maintain Weight Bearing Status Yes During Gait Assistive Devices Assistive Device Gait Belt,Front Wheeled Walker Orthotic/Prosthetic Devices or Brace: No Gait Deviations General Gait Pattern Antalgic,Decreased Stride Length,Decreased Feet Clearance,Step-to Gait Factors Limiting Gait Function Factors Limiting Gait Function Decreased Activity Tolerance, Decreased Strength,Limited Range of Motion,Pain,Poor Balance,Poor Safety Awareness Comments Gait Comments Please refer to mobility section for details. Pt has history of right ankle surgery which left her with decreased dorsiflexion. Pt ambulates with R ankle in dorsiflexion and can not tolerate heel flat on the floor. Stair Climbing Assessment Comments Stair Climbing Comments Unable. PT-Balance Assessment Sitting Balance and Reactions Static Sitting Balance Ability Good Dynamic Sitting Balance Ability Good Standing Balance and Reactions Static Standing Balance Ability Fair Dynamic Standing Balance Ability Fair Device Used FWW M5 PT-IP Objective Assessments Start: 09/21/21 13:35 Freq: NEEDED Status: Active Protocol: Document 09/21/21 13:36 AB (Rec: 09/21/21 13:49 AB [id number]) Orientation Orientation/Cognition Level of Alertness Alert Orientation Name,Place,Situation Language Function Ability No Deficits Noted Safety Awareness Decreased Safety Awareness Memory Description No Deficits Noted Gross Range of Motion Lower Extremity ROM Impairments RLE pain limiting mobility Strength Comments Strength Comments pain limiting movement on BLE Muscle Tone Muscle Tone WNL Yes M6 PT-IP Treatment Start: 09/21/21 13:35 Freq: NEEDED Status: Active Protocol: Document 09/24/21 10:36 AW (Rec: 09/24/21 11:42 AW [id number]) Physical Therapy Treatment Education Education Provided Safety Equipment Issued Equipment Type and Company FWW issued from [employer]. Other Treatments Other Treatment Performed Pt's mother has called [facility] to rent hospital bed, BSC, wheelchair. Alternatively, she may be able to acquire DME from [facility] but not until Saturday. M7 PT-IP Assessment and Plan Start: 09/21/21 13:35 Freq: NEEDED Status: Active Protocol: Document 09/24/21 10:36 AW (Rec: 09/24/21 11:42 AW [id number]) PT Summary Assessment and Plan Potential Rehabilitation Potential Fair Summary Impairments Pain,ROM,Strength,Balance, Coordination,Sensation,Tone, Cognition,Bed Mobility, Transfers,Gait,Activity Tolerance Progress Towards Goals Slow Progress due to Pain Assessment Summary Pt appears to have plateaued in progress with mobility. Min A required for bed mobility and transfers with FWW. Pt has history of R ankle surgery which left her with impaired dorsiflexion. She can typically ascend stairs at her mom's house but only when turned sideways using BUE on the rail and with some assist. She is unable to navigate stairs at this time and will require BLS transport. Pt will need HH therapies to optimize the home environment and to progress pt's strength and mobility independence. Goals Bed Mobility Goal Standby Assistance Transfer Goal Standby Assistance,Front Wheeled Walker Gait Goal Standby Assistance,Front Wheel Walker Gait Distance 100 Other Goals improve bed mobility, transfers using FWW mod I improve ambulation using FWW mod I ~ 200 ft up/down 5 steps STAFF HOME THERAPY RN/SPC CGA Days to Meet Goals 10 Frequency of Treatment Frequency Of Treatment Once a Day Treatment Plan Physical Therapy Treatment Plan Bed Mobility Training,Transfer Training,Gait Training, Therapeutic Exercise,Balance Retraining,Discharge Planning, Hot or Cold Pack,Neuromuscular Re-ed,Coordination Retraining ,Manual Therapy Weight Bearing Status Weight Bearing Status Weight Bear as Tolerated Allowed Weight Bearing Amount (enter % RLE WBAT or #) (%) Recommendations To Nursing Amount of Assist Needed 1 Person Assist Discharge Recommendations PT Discharge Recommendations Home with 12/11 Assist Available,Home Health,SNF Rehab,Home vs SNF Equipment Needed for Home Before FWW Discharge Transportation Needs at Discharge Stretcher/Ambulance
--- NOTE | 2021-09-24 14:50 | CM.DPC ---
DCP/continued: Reviewed chart. Per provider/Dr. Servin patient medically stable to d/c home today. COMPLAINT EVALUATION SUPERVISOR met with patient and Mom/Argelia at bedside. Mom confirms that patient will be going home with her. Correct address is: [address] [place] [address]. COMPLAINT EVALUATION SUPERVISOR faxed clinical to [facility] along with d/c instructions. No d/c summary available at this time. Patient requiring non-urgent BLS transport secondary to pelvic fx and brittle diabetes. Mom reports that she has gotten patient a new recliner for home. FWW ordered for patient at home. No additional needs identified. P: Home with Mother/Argelia in [place] with HH arranged through [facility] whom have been notified of discharge via . MARY
--- NOTE | 2021-09-24 16:54 | PM.DS.1 ---
History of Present Illness History of Present Illness Chief complaint: GLF / Lt hip pain Narrative: 31-year-old female who is well known to staff and [facility] personnel.? Patient has type 1 diabetes and has been admitted frequently for diabetic ketoacidosis.? She was in her usual state health today when she tripped on her foot and landed on the ground on her right side taking the brunt of the impact.? She states that she fell very hard.? She had immediate pain on her right hip to the point that she was only able to move over to her left side was unable to move.? She was at home alone and she contacted her mom who then called the paramedics.? She was brought in for evaluation and found to have a superior and inferior pubic rami fracture.? She was given 15 mg of Toradol and dilaudid to improve her pain but still did not have good pain control and was not able to bear weight.? She was admitted for further treatment and pain control. The patient had elevated blood sugar in the 400s in the ER but her anion gap was only 11 which is quite low for her and overall from a diabetic standpoint she is doing much better with a recent weight gain of 10 lb Discharge Providers Provider Date of admission: 09/20/21 01:25 Discharge Date: 09/24/21 Primary care physician: Maria Ines Limon DO Consults: 09/20/21 02:19 Consult to Dietitian, Adult Routine Comment: Reason For Exam: low BMI, weight increasing since last admit 09/20/21 06:13 Consult to Discharge Planning Routine Comment: Consult to Occupational Therapy Evaluate & Treat Comment: Physician Instructions: Evaluate and treat Consult to Physical Therapy Evaluate & Treat Comment: Physician Instructions: Evaluate and Treat Consult to Physician Routine Comment: Consulting Provider: Jimena Bolden Reason for consultation: pubic rami fracture Has provider been notified: No 09/23/21 13:44 Consult to Home Health Routine Comment: Reason For Exam: Home health upon DC 09/24/21 11:35 Consult to Home Health Routine Comment: DX: Pelvic fracture Reason For Exam: FWW for home use Discharge provider: Pedro Servin MD Summary Hospital Course Discharge Diagnosis: 1. Right minimally displaced superior and inferior pubic rami fractures 2. Type 1 diabetes 3. Moderate protein calorie malnutrition Hospital Course: Patient admitted for pain control of non operative pelvic fracture. She was here for 4 days mainly due to uncontrolled pain in spite of significant doses of IV Dilaudid as well as regular scheduled IV Toradol. She was switched to oral Dilaudid on day before discharge and appears at reasonable level of control to discharge home. She was evaluated by PT and OT as well. She will use a walker. We have set up home health services for her. Diabetes was adequately managed during her stay. Status at Discharge Cognitive/behavioral status at discharge: oriented Functional status at discharge: uses cane/walker Overall status at discharge: patient is not back to baseline Time Spent with Patient Time spent: Less than 30 minutes Exam Vital Signs (past 8 hours): Oxygen Delivery Method Room Air Oxygen Flow Rate 0 Narrative Exam Narrative: General: Alert female who was sleeping when I entered the room, not appearing in major distress Objective Labs Result Diagrams: 09/22/21 05:43 09/23/21 05:09 [facility] Medical History DKA (diabetic ketoacidoses) History of pyelonephritis Irregular menstrual cycle Migraine headache Nephrolithiasis Noncompliance w/medication treatment due to intermit use of medication Type 1 diabetes mellitus Surgical History History of ureter stent Hx of cataract surgery Hx of local excision of skin lesion Status post laser lithotripsy of ureteral calculus [place] teeth extracted Family History Father In good health Mother Cardiac disease Social History details: Engaged household members: significant other Smoking Status: Never smoker alcohol intake: never Discharge Plan Discharge Plan Patient Disposition: Home Provider Discharge Comment: You were treated for pelvic fracture. Take Tylenol for mild pain. Take hydromorphone as needed for more severe pain. Opiod pain relievers should not be used for more than 1 to 2 weeks for acute pain. Home health PT has been requested. Discharge orders & Medications Prescriptions: New hydromorphone 2 mg Tablet 2 - 4 mg PO Q4HR MDD 8 PRN (Reason: Pain, Severe (7-10) for pelvic fracture) Qty: 60 0RF Continued glucose 4 gram tablet,chewable 4 gram PO Q15M PRN (Reason: hypoglycemia) Qty: 30 0RF Rx Instructions: until response Glucagon Emergency Kit (human) 1 mg recon soln 1 mg subcut DIRECTED 0RF insulin aspart U-100 [Novolog Flexpen U-100 Insulin] 100 unit/mL (3 mL) insulin pen 10 unit SUBCUT AC 0RF Rx Instructions: Pt states she uses 10 units plus a sliding scale based on her blood sugar. She is vague in response to exact # over 10 units. diphenhydramine HCl 50 mg Capsule 50 mg PO BEDTIME PRN (Reason: Sleep) 0RF Rx Instructions: for itching and sleep Lantus Solostar U-100 Insulin 100 unit/mL (3 mL) Insulin Pen 25 unit SUBCUT BID 10 Days Qty: 5 2RF insulin aspart U-100 [Novolog U-100 Insulin aspart] 100 unit/mL solution 1 sliding scale dose SUBCUT USEASDIRECTD Qty: 10 2RF Rx Instructions: USE SLIDING SCALE PLS Follow up/Referrals: Maria Ines Limon, DO [Primary Care Provider] - Diet/Activity/Treatments Diet: Carb-consistent/Diabetic Discharge Data Primary Care Provider: Maria Ines Limon Attending Provider: Liane Briceno
== END 2021-09-24 13:45 | disposition home or self-care (01) ==
LOC: ED 09-20 00:38 → AC 09-20 01:26
PROVIDERS: Orthopaedic Surgery Foot and Ankle Surgery; Admitting Provider Family Medicine; Emergency Provider Emergency Medicine; PCP Student in an Organized Health Care Education/Training Program; Visit Provider Neuromusculoskeletal Medicine, Sports Medicine
DX: S32.511A Fracture of superior rim of right pubis, initial encounter for closed fracture (principal); W01.0XXA Fall on same level from slipping, tripping and stumbling without subsequent striking against object, initial encounter; E10.8 Type 1 diabetes mellitus with unspecified complications; Z79.4 Long term (current) use of insulin; R00.0 Tachycardia, unspecified; E46 Unspecified protein-calorie malnutrition; Z20.822 Contact with and (suspected) exposure to COVID-19
CPT/HCPCS: 36415; 72192; 73502; 80053; 80069; 81003; 81015; 82306; 82962; 83036; 85025; 87635; 96361; 96372; 96374; 96375; 96376; 97162; 97166; 97530; 97535; 99284; C9803; G0378; J1170; J1200; J1650; J1815; J1885

== ENCOUNTER 2021-10-11 14:50 | Emergency (ER) | payer OTHER, MEDICAID, SELFPAY ==
[2021-10-11] VITALS (21 sets, daily range): BP systolic 151–193; BP diastolic 87–134; PULSE 101–119; RESP 0–24; TEMP 36.9; O2SAT 13–99
[2021-10-11] MEDS: HYDROMORPHONE 1 MG INJ IV ×2 (15:05→18:20)
[2021-10-11 15:26] LABS: Add Manual Diff / Slide Review NO; Basophils Absolute Auto 100 /uL (0-100); Basophils Percent Auto 0.8 % (0-2); Eosinophils Absolute Auto 0 /uL (0-450); Eosinophils Percent Auto 0.6 % (2-4); Hematocrit 32.1 % (36-46); Hemoglobin 10.7 g/dL (12.0-16.0); Lymphocytes Absolute Auto 1000 /uL (1100-4500); Lymphocytes Percent Auto 14.8 % (25-40); Mean Corpuscular HGB Conc 33.2 % (30-36); Mean Corpuscular Hemoglobin 28.8 PG (26-34); Mean Corpuscular Volume 86.7 fL (80-100); Monocytes Absolute Auto 700 /uL (0-900); Monocytes Percent Auto 10.9 % (3-14); Neutrophils Absolute Auto 4700 /uL (1500-7000); Neutrophils Percent Auto 72.9 % (50-75); Platelet Count 605 X10^3/uL (150-400); Red Blood Cell Count 3.71 X10^6/uL (4.0-5.2); Red Cell Distribution Width 14.3 % (11.6-14.8); White Blood Cell Count 6.4 X10^3/uL (4.5-11.0)
[2021-10-11 15:44] LABS: Alanine Aminotransferase 27 IU/L (<35); Albumin 3.7 g/dL (3.5-5.0); Albumin Globulin Ratio 1.2 (1.0-2.8); Alkaline Phosphatase 202 U/L (38-126); Aspartate Aminotransferase 30 IU/L (14-36); BUN Creatinine Ratio 46.4 (6-22); Bilirubin Total 0.3 mg/dL (0.2-1.3); Blood Urea Nitrogen 32 mg/dL (7-17); Calcium 8.8 mg/dL (8.4-10.2); Carbon Dioxide 38 mmol/L (22-32); Chloride 93 mmol/L (98-107); Estimated Glomerular Filt Rate > 60 mL/min (>60); Globulin 3.1 g/dL (1.7-4.1); Glucose 240 mg/dL (70-100); HEMOLYSIS < 15 (0-50); Lipase 47 U/L (23-300); Potassium 4.5 mmol/L (3.4-5.1); Sodium 136 mmol/L (137-145); Total Protein 6.8 g/dL (6.3-8.2)
--- NOTE | 2021-10-11 16:16 | DI.RAD.S_ITS ---
PROCEDURE: XR KUB INDICATIONS: abd distention, abd pain, hx pelvic fx 3 weeks ago TECHNIQUE: One view of the abdomen acquired. COMPARISON: [facility], CT, CT PEL WO CON, 09/19/2021, 21:48. [facility], CT, CT ABDOMEN PELVIS W CON, 08/29/2021, 14:00. [facility], CR, XR KUB, 05/08/2018, 6:34. FINDINGS: Surgical changes and devices: None. Bowel: Bowel gas demonstrates small scattered air-fluid levels within the small bowel. Prominent colonic stool is present. Soft tissues: No suspicious abdominal calcifications. Visualized solid organ contours appear normal in size. Bones: No suspicious bony lesions. Previous right pubic rami fractures are again identified. IMPRESSION: Prominent stool consistent constipation. Small air-fluid levels are noted suggestive ileus. Developing partial small bowel obstruction cannot be definitively excluded. Dictated by: Alejandra Sanchez M.D. on 10/11/2021 at 17:55 Approved by: Alejandra Sanchez M.D. on 10/11/2021 at 17:56
--- NOTE | 2021-10-11 16:18 | ED.ABDPAIN ---
HPI - Abdominal Pain <Ange Diaz, [facility] - Last Filed: 10/11/21 20:36> General Chief Complaint: Abdominal Pain Stated Complaint: ABD pain Time Seen by Provider: 10/11/21 16:01 Source: patient and EMS Mode of arrival: EMS History of Present Illness HPI narrative: This is a 31-year-old female with history of pubic ramus fracture three weeks ago, insulin-dependent diabetes type 1 who presents to the department today for abdominal distension and pain and complains constipation for the last of weeks. Patient states that she has not had a bowel movement in at least seven days she has tried MiraLax daily, Dulcolax, magnesium citrate approximately three days ago without any bowel movement. Patient endorses bladder pressure and dysuria, states that she can move her bowels, she endorses significant pain everywhere in her abdomen, endorses lower extremity edema which has been there since she fractured her pelvis and tailbone. On review of her history it appears to be a closed fracture of the superior and inferior pubic ramus. Patient states she has been taking Dilaudid at home, did not take any yesterday but this has been all she has been able to use for her pain. She denies any fever, shortness of breath, chest pain, chills, diaphoresis, states that attempts to use the bathroom are all painful due to her fracture. She states that she tried magnesium citrate three days ago did not have any bowel movement afterwards. Related Data Home Medications Medication Instructions Recorded Confirmed glucagon (human recombinant) 1 mg 1 mg SUBCUT DIRECTED 02/16/19 09/20/21 solution for injection (Glucagon Emergency Kit) insulin aspart U-100 100 unit/mL 10 unit SUBCUT AC 05/20/20 09/20/21 (3 mL) subcutaneous pen (Novolog Flexpen U-100 Insulin aspart) diphenhydramine HCl 50 mg capsule 50 mg PO BEDTIME PRN Sleep 09/29/20 09/20/21 Previous Rx's Medication Instructions Recorded glucose 4 gram chewable tablet 4 gram PO Q15M PRN hypoglycemia 12/12/18 #30 tabs insulin aspart U-100 100 unit/mL 1 sliding scale dose SUBCUT 04/13/21 subcutaneous solution (Novolog USEASDIRECTD #10 mL U-100 Insulin aspart) insulin glargine 100 unit/mL (3 25 unit (0.25 mL) SUBCUT BID 10 04/13/21 mL) subcutaneous pen (Lantus days #5 mL Solostar U-100 Insulin) hydromorphone 2 mg tablet 2 - 4 mg PO Q4HR PRN Pain, Severe 09/24/21 (7-10) for pelvic fracture #60 tabs bisacodyl 10 mg rectal suppository 10 mg WV DAILY PRN constipation 10/11/21 #12 ea bisacodyl 10 mg rectal suppository 10 mg WV DAILY PRN constipation 10/11/21 #12 ea cephalexin 500 mg capsule 500 mg PO BID 5 days #10 caps 10/11/21 cephalexin 500 mg capsule 500 mg PO BID acute cystitis 5 10/11/21 days #10 caps hydrocodone 5 mg-acetaminophen 325 1 tab PO TID PRN pain #14 tabs 10/11/21 mg tablet magnesium citrate 150 ml PO BID PRN constipation 10/11/21 #296 mL magnesium citrate 150 ml PO BID PRN constipation 10/11/21 #296 mL Allergies Allergy/AdvReac Type Severity Reaction Status Date / Time abdalla [ABDALLA] Allergy Intermediate Hives, Verified 08/29/21 12:11 pruritus iodine [IODINE] Allergy Intermediate rash, itchy Verified 08/29/21 12:11 morphine Allergy Intermediate Difficulty Verified 08/29/21 12:11 Breathing shellfish derived Allergy Intermediate rash Verified 08/29/21 12:11 [SHELLFISH DERIVED] adhesive [ADHESIVE] Allergy Unknown tape Verified 08/29/21 12:11 latex [LATEX] Allergy Unknown Hives Verified 08/29/21 12:11 Review of Systems <Ange Diaz [facility] - Last Filed: 10/11/21 20:36> Review of Systems Narrative: General: denies fever, chills, malaise, sweats, fatigue Head/Neck: denies headache, neck pain, dizziness Eyes: denies visual changes, eye pain Cardio: denies chest pain, palpitations, edema Respiratory: denies dyspnea, cough, orthopnea GI: Endorses abdominal pain and distension, denies nausea, vomiting, or diarrhea, states no bowel movement for least seven days : denies dysuria, hematuria, urinary retention, frequency or incontinence MSK: denies joint pain, muscle weakness Skin: denies rash, itching, skin lesions or other Neuro: denies numbness, tingling Patient History <SHARYN Lane - Last Filed: 10/11/21 20:36> Medical History DKA (diabetic ketoacidoses) History of pyelonephritis Irregular menstrual cycle Migraine headache Nephrolithiasis Noncompliance w/medication treatment due to intermit use of medication Type 1 diabetes mellitus Surgical History History of ureter stent Hx of cataract surgery Hx of local excision of skin lesion Status post laser lithotripsy of ureteral calculus [place] teeth extracted Family History Father In good health Mother Cardiac disease Social History details: Engaged household members: significant other Smoking Status: Never smoker alcohol intake: never Smoking Status: Never smoker alcohol intake frequency: holidays/special occasions only Substance Use Type: does not use Exam <SHARYN Lane - Last Filed: 10/11/21 20:36> Narrative Exam Narrative: Independently reviewed vitals signs and nursing notes. General: cooperative, comfortable, in no acute distress, well groomed Head: atraumatic, symmetrical facial expressions Neck: supple Eyes: equal round and reactive, EOMI, conjunctiva normal Nose: nares patent, no rhinorrhea Mouth/Throat: moist mucus membranes Cardiovascular: regular rate and rhythm, no peripheral edema, warm extremities Respiratory: normal effort, able to speak in complete sentences, no audible wheezing, stridor, or rales. No retractions or tachypnea. GI: abdomen firm, tender to palpation in all areas, distended, no masses, no exquisite tenderness with exam, without guarding or rebound. MSK: moves all extremities, neurovascularly intact, no weakness, normal tone Skin: brisk capillary refill, no rash, no erythema Neuro: normal speech and cognition, A&O x3 Psych: mental status is grossly normal, congruent mood, normal affect, pleasant and cooperative Initial Vital Signs Initial Vital Signs: Vital Signs Temperature 98.4 F 10/11/21 14:54 Pulse Rate 119 H 10/11/21 14:54 Respiratory Rate 24 10/11/21 14:54 Blood Pressure 178/104 H 10/11/21 14:54 Pulse Oximetry 92 10/11/21 14:54 Oxygen Delivery Method 10/11/21 14:54 <José Light MD - Last Filed: 10/12/21 04:47> Initial Vital Signs Initial Vital Signs: Vital Signs Temperature 98.4 F 10/11/21 14:54 Pulse Rate 119 H 10/11/21 14:54 Respiratory Rate 24 10/11/21 14:54 Blood Pressure 178/104 H 10/11/21 14:54 Pulse Oximetry 92 10/11/21 14:54 Oxygen Delivery Method 10/11/21 14:54 Course <SHARYN Lane - Last Filed: 10/11/21 20:36> Orders Ordered: ED Orders 10/11/21 20:03 Consult to Urology Stat Discontinued Medications Hydrocodone Bitart/Acetaminophen (Hydrocodone/Acet 5/325 Tablet) 1 tab PO NOW ONE Stop: 10/11/21 20:50 Last Admin: 10/11/21 21:19 Dose: 1 tab Documented By: ODESSA Hydrocodone Bitart/Acetaminophen (Hydrocodone/Acet 5/325 Prepack) 1 bottle MISC SEEINSTR ONE Stop: 10/11/21 20:50 Last Admin: 10/11/21 21:19 Dose: 1 bottle Documented By: ODESSA Bisacodyl (Bisacodyl 10 Mg Supp) 10 mg WV NOW ONE Stop: 10/11/21 16:19 Last Admin: 10/11/21 16:25 Dose: 10 mg Documented By: SB Cephalexin HCl (Cephalexin 250 Mg Capsule) 500 mg PO NOW ONE Stop: 10/11/21 20:07 Last Admin: 10/11/21 21:19 Dose: 500 mg Documented By: SB Diphenhydramine HCl (Diphenhydramine 50 Mg/Ml Vial) 25 mg IV NOW ONE Stop: 10/11/21 18:07 Last Admin: 10/11/21 18:20 Dose: 25 mg Documented By: ETTA Hydromorphone HCl (Hydromorphone 1 Mg Inj) 1 mg IV NOW ONE Stop: 10/11/21 15:01 Last Admin: 10/11/21 15:05 Dose: 1 mg Documented By: ADRIAN Hydromorphone HCl (Hydromorphone 1 Mg Inj) 1 mg IV NOW ONE Stop: 10/11/21 18:07 Last Admin: 10/11/21 18:20 Dose: 1 mg Documented By: ETTA Sodium Chloride (Normal Saline 0.9%) 1,000 mls @ 1,000 mls/hr IV BOLUS ONE Stop: 10/11/21 17:02 Last Infusion: 10/11/21 18:42 Dose: 0 mls/hr Documented By: Admin: 10/11/21 16:26 Dose: 1,000 mls/hr Documented By: ODESSA Methylprednisolone (Methylprednisolone 125 Mg/2 Ml Vial) 60 mg IV NOW ONE Stop: 10/11/21 18:07 Last Admin: 10/11/21 18:20 Dose: 60 mg Documented By: ETTA Vital Signs Vital signs: Vital Signs - 8 hr 10/11/21 21:00 10/11/21 21:36 10/11/21 21:19 Pulse Rate 106 H 104 H 105 H Respiratory Rate 18 16 15 Blood Pressure 173/99 H Pulse Oximetry 94 95 93 Oxygen Delivery Method Room Air Oxygen Flow Rate 0 10/11/21 21:19 Pulse Rate Respiratory Rate Blood Pressure 173/99 H Pulse Oximetry Oxygen Delivery Method Oxygen Flow Rate <José Light MD - Last Filed: 10/12/21 04:47> Orders Ordered: ED Orders 10/11/21 20:03 Consult to Urology Stat Discontinued Medications Hydrocodone Bitart/Acetaminophen (Hydrocodone/Acet 5/325 Tablet) 1 tab PO NOW ONE Stop: 10/11/21 20:50 Last Admin: 10/11/21 21:19 Dose: 1 tab Documented By: ODESSA Hydrocodone Bitart/Acetaminophen (Hydrocodone/Acet 5/325 Prepack) 1 bottle MISC SEEINSTR ONE Stop: 10/11/21 20:50 Last Admin: 10/11/21 21:19 Dose: 1 bottle Documented By: ODESSA Bisacodyl (Bisacodyl 10 Mg Supp) 10 mg WV NOW ONE Stop: 10/11/21 16:19 Last Admin: 10/11/21 16:25 Dose: 10 mg Documented By: ODESSA Cephalexin HCl (Cephalexin 250 Mg Capsule) 500 mg PO NOW ONE Stop: 10/11/21 20:07 Last Admin: 10/11/21 21:19 Dose: 500 mg Documented By: ODESSA Diphenhydramine HCl (Diphenhydramine 50 Mg/Ml Vial) 25 mg IV NOW ONE Stop: 10/11/21 18:07 Last Admin: 10/11/21 18:20 Dose: 25 mg Documented By: ETTA Hydromorphone HCl (Hydromorphone 1 Mg Inj) 1 mg IV NOW ONE Stop: 10/11/21 15:01 Last Admin: 10/11/21 15:05 Dose: 1 mg Documented By: ADRIAN Hydromorphone HCl (Hydromorphone 1 Mg Inj) 1 mg IV NOW ONE Stop: 10/11/21 18:07 Last Admin: 10/11/21 18:20 Dose: 1 mg Documented By: ETTA Sodium Chloride (Normal Saline 0.9%) 1,000 mls @ 1,000 mls/hr IV BOLUS ONE Stop: 10/11/21 17:02 Last Infusion: 10/11/21 18:42 Dose: 0 mls/hr Documented By: Admin: 10/11/21 16:26 Dose: 1,000 mls/hr Documented By: ODESSA Methylprednisolone (Methylprednisolone 125 Mg/2 Ml Vial) 60 mg IV NOW ONE Stop: 10/11/21 18:07 Last Admin: 10/11/21 18:20 Dose: 60 mg Documented By: ETTA Vital Signs Vital signs: Vital Signs - 8 hr 10/11/21 21:00 10/11/21 21:36 10/11/21 21:19 Pulse Rate 106 H 104 H 105 H Respiratory Rate 18 16 15 Blood Pressure 173/99 H Pulse Oximetry 94 95 93 Oxygen Delivery Method Room Air Oxygen Flow Rate 0 10/11/21 21:19 Pulse Rate Respiratory Rate Blood Pressure 173/99 H Pulse Oximetry Oxygen Delivery Method Oxygen Flow Rate MDM - Abdominal Pain <SHARYN Lane - Last Filed: 10/11/21 20:36> Lab Data Result diagrams: 10/11/21 15:15 10/11/21 15:15 Labs: Lab Results 10/11/21 10/11/21 10/11/21 Range/Units 15:15 15:15 15:15 WBC 6.4 (4.5-11.0) X10^3/uL RBC 3.71 L (4.0-5.2) X10^6/uL Hgb 10.7 L (12.0-16.0) g/dL Hct 32.1 L (36-46) % MCV 86.7 (80-100) fL MCH 28.8 (26-34) PG MCHC 33.2 (30-36) % RDW 14.3 (11.6-14.8) % Plt Count 605 H (150-400) X10^3/uL Neut % (Auto) 72.9 (50-75) % Lymph % (Auto) 14.8 L (25-40) % [place] % (Auto) 10.9 (3-14) % Eos % (Auto) 0.6 L (2-4) % Baso % (Auto) 0.8 (0-2) % Neut # (Auto) 4700 (7438-6846) /uL Lymph # (Auto) 1000 L (1705-4729) /uL [place] # (Auto) 700 (0-900) /uL Eos # (Auto) 0 (0-450) /uL Baso # (Auto) 100 (0-100) /uL Sodium 136 L (137-145) mmol/L Potassium 4.5 (3.4-5.1) mmol/L Chloride 93 L (98-107) mmol/L Carbon Dioxide 38 H (22-32) mmol/L BUN 32 H (7-17) mg/dL Creatinine 0.69 (0.52-1.04) mg/dL Estimated GFR > 60 (>60) mL/min BUN/Creatinine Ratio 46.4 H (6-22) Glucose 240 H (70-100) mg/dL Lactate 1.0 (0.7-2.1) mmol/L Calcium 8.8 (8.4-10.2) mg/dL Total Bilirubin 0.3 (0.2-1.3) mg/dL AST 30 (14-36) IU/L ALT 27 (<35) IU/L Alkaline Phosphatase 202 H (38-126) U/L Total Protein 6.8 (6.3-8.2) g/dL Albumin 3.7 (3.5-5.0) g/dL Globulin 3.1 (1.7-4.1) g/dL Albumin/Globulin Ratio 1.2 (1.0-2.8) Lipase 47 (23-300) U/L HCG, Quant mIU/mL Urine RBC (0-5/HPF) Urine WBC (0-5/HPF) Ur Squamous Epith Cells (0-5/HPF) Urine Bacteria (None) Ur Culture Indicated? 10/11/21 10/11/21 Range/Units 15:21 17:00 WBC (4.5-11.0) X10^3/uL RBC (4.0-5.2) X10^6/uL Hgb (12.0-16.0) g/dL Hct (36-46) % MCV (80-100) fL MCH (26-34) PG MCHC (30-36) % RDW (11.6-14.8) % Plt Count (150-400) X10^3/uL Neut % (Auto) (50-75) % Lymph % (Auto) (25-40) % [place] % (Auto) (3-14) % Eos % (Auto) (2-4) % Baso % (Auto) (0-2) % Neut # (Auto) (8607-0916) /uL Lymph # (Auto) (2635-4362) /uL [place] # (Auto) (0-900) /uL Eos # (Auto) (0-450) /uL Baso # (Auto) (0-100) /uL Sodium (137-145) mmol/L Potassium (3.4-5.1) mmol/L Chloride (98-107) mmol/L Carbon Dioxide (22-32) mmol/L BUN (7-17) mg/dL Creatinine (0.52-1.04) mg/dL Estimated GFR (>60) mL/min BUN/Creatinine Ratio (6-22) Glucose (70-100) mg/dL Lactate (0.7-2.1) mmol/L Calcium (8.4-10.2) mg/dL Total Bilirubin (0.2-1.3) mg/dL AST (14-36) IU/L ALT (<35) IU/L Alkaline Phosphatase (38-126) U/L Total Protein (6.3-8.2) g/dL Albumin (3.5-5.0) g/dL Globulin (1.7-4.1) g/dL Albumin/Globulin Ratio (1.0-2.8) Lipase (23-300) U/L HCG, Quant < 2.4 mIU/mL Urine RBC 5-10/hpf H (0-5/HPF) Urine WBC 1-5/hpf (0-5/HPF) Ur Squamous Epith Cells 1-5 /hpf (0-5/HPF) Urine Bacteria Occasional (0-1) (None) Ur Culture Indicated? Cult not indicated Point of care testing: Point of Care Testing Test Results Negative Glucose POC 231 Urine Dip Bedside Urine Glucose 100 mg/dl Bedside Urine Bilirubin - Negative Bedside Urine Ketone - Negative Urine Specific [place] 1.010 Bedside Urine Occult Blood ++ Bedside Urine pH 7.5 Bedside Urine Protein + 30 Bedside Urine Urobilinogen 0.2 Bedside Urine Nitrite - Negative Bedside Urine Leukocytes - Negative Esterase Imaging Data Abdominal x-ray: Radiologist's Impression: PROCEDURE:? XR KUB ? INDICATIONS:? abd distention, abd pain, hx pelvic fx 3 weeks ago ? TECHNIQUE:? One view of the abdomen acquired.? ? COMPARISON:? [facility], CT, CT PEL WO CON, 09/19/2021, 21:48.? [facility], CT, CT ABDOMEN PELVIS W CON, 08/29/2021, 14:00.? [facility], CR, XR KUB, 05/08/2018, 6:34. ? FINDINGS:? ? Surgical changes and devices:? None.? ? Bowel:? Bowel gas demonstrates small scattered air-fluid levels within the small bowel.? Prominent colonic stool is present. ? Soft tissues:? No suspicious abdominal calcifications.? Visualized solid organ contours appear normal in size.? ? Bones:? No suspicious bony lesions.? Previous right pubic rami fractures are again identified. ? IMPRESSION:? Prominent stool consistent constipation.? Small air-fluid levels are noted suggestive ileus.? Developing partial small bowel obstruction cannot be definitively excluded. ? ? Dictated by: Alejandra Sanchez M.D. on 10/11/2021 at 17:55 ? ? Approved by: Alejandra Sanchez M.D. on 10/11/2021 at 17:56 ? MDM Narrative Medical decision making narrative: This is a 31-year-old female with history of type 1 diabetes, DKA, who presents to the emergency department with constipation for at least seven days without a bowel movement and ongoing abdominal pain and distension related to it. Patient was diagnosed with a pubic ramus fracture after she accidentally tripped landing her right hip and has a minimally displaced fracture of the right superior and inferior pubic rami. There was no hip fracture. She has been extremely tender has been unable to sit or stand or ambulate very well. Patient uses a walker to ambulate at this time. No surgery was indicated. Her blood sugar appears to be stable today, she has been doing remarkably well living with her mother and gaining weight, checking her blood sugars and taking her insulin when she should be. Patient endorses worsening abdominal distension, periumbilical pain, significant pain with any palpation of her abdomen, bladder pressure and painful urination. Patient denies any new falls, new injuries, nausea vomiting, fever or chills. She has been taking Dilaudid at home for her pain. Patient is allergic to iodine contrast, x-ray KUB obtained for concern about bowel obstruction verses perforated bowel verses free air in her abdomen. X-ray shows prominent stool consistent with constipation, small air-fluid levels are noted and suggestive of ileus, developing partial small-bowel obstruction cannot be definitively excluded. Due to patient's abdominal distension, pain, and history, an abdominal CT was ordered with contrast and patient was treated prophylactically for iodine contrast allergy with Benadryl and methylprednisolone IV. She was given 60 mg IV of methylprednisolone due to the hyperglycemia concern in the following days, she was given 25 mg of Benadryl. After this was given, patient was also given a mg of Dilaudid which made her feel very sleepy at that time, her O2 sats dropped as she had a short period of apnea but came right back up to the upper 90s. Patient is being monitored contusion on the pulse oximeter, states that she fell asleep pretty easily. Her lab work is significant for an elevated platelet count of 605, this could be due to disease, trauma to and healing, or other reason, sodium 136, potassium 4.5, lung creatinine 0.69 and stable, glucose was 240 initially, lactate of 1.0, alkaline phosphatase is elevated at 202 but not higher than some previous levels, no elevation to AST or ALT, hCG quant was negative for , lipase is 47, UA shows rbc's, wbc's, and squamous cells likely contaminant although patient endorses dysuria, bladder pressure. CT was ordered and on imaging it appears that patient's bladder is remarkably full. Discussion about bladder emptying if she has any challenged with this, patient states that due to her pubic rami fractures it is hard to move around so she has been holding it for longer than usual. She was able to void and emptied her bladder, postvoid residual was [address] abdomen pelvis was significant for mild to moderate scattered stool without obstruction, significant urinary bladder distention with bilateral hydronephrosis and hydroureter. Consultation with Dr. Spicer from [facility] urology group regarding patient's case, her pubic rami fractures, history of type 1 diabetes, abdominal distension lab work and scans. He recommends Sigala catheter for bladder decompression and follow-up with urology. He states that she may have some petechial hemorrhage following bladder decompression due to the amount of volume that was decompressed, discuss this with the patient that she may see blood in her Sigala catheter and told her to not be alarmed. Encourage patient to have close follow-up with her primary care provider in two days for another lab draw or return to the emergency department for evaluation of anything changes. Patient was treated with cephalexin for acute UTI, a Sigala catheter with a leg bag was placed for urinary retention, they understand to call Urology and follow-up, they also understand to follow up with her primary care provider for a recheck of her BMP on Saturday for electrolyte disturbances. No peritoneal signs on abdominal exam. Patient remains p.o. tolerant. Serial abdominal exam without increase in abdominal pain. Given history and exam, low suspicion for acute abdominal process, such as acute cholecystitis, pancreatitis, perforated viscus, atypical appendicitis, colitis, diverticulitis or torsion. Extensive conversation about ER return precautions and need for close follow-up. Patient is appropriate and amenable to discharge home. Vital signs are stable on repeat examination is unremarkable. Patient has been informed of results. Patient has been given strict return to ER precautions for any new or worsening symptoms. Patient understands to follow up closely with outpatient providers as instructed. Patient understands plan and agrees to discharge home. All questions and concerns answered at this time. <José Light MD - Last Filed: 10/12/21 04:47> Lab Data Labs: Lab Results 10/11/21 10/11/21 10/11/21 Range/Units 15:15 15:15 15:15 WBC 6.4 (4.5-11.0) X10^3/uL RBC 3.71 L (4.0-5.2) X10^6/uL Hgb 10.7 L (12.0-16.0) g/dL Hct 32.1 L (36-46) % MCV 86.7 (80-100) fL MCH 28.8 (26-34) PG MCHC 33.2 (30-36) % RDW 14.3 (11.6-14.8) % Plt Count 605 H (150-400) X10^3/uL Neut % (Auto) 72.9 (50-75) % Lymph % (Auto) 14.8 L (25-40) % [place] % (Auto) 10.9 (3-14) % Eos % (Auto) 0.6 L (2-4) % Baso % (Auto) 0.8 (0-2) % Neut # (Auto) 4700 (1976-5705) /uL Lymph # (Auto) 1000 L (6558-7422) /uL [place] # (Auto) 700 (0-900) /uL Eos # (Auto) 0 (0-450) /uL Baso # (Auto) 100 (0-100) /uL Sodium 136 L (137-145) mmol/L Potassium 4.5 (3.4-5.1) mmol/L Chloride 93 L (98-107) mmol/L Carbon Dioxide 38 H (22-32) mmol/L BUN 32 H (7-17) mg/dL Creatinine 0.69 (0.52-1.04) mg/dL Estimated GFR > 60 (>60) mL/min BUN/Creatinine Ratio 46.4 H (6-22) Glucose 240 H (70-100) mg/dL Lactate 1.0 (0.7-2.1) mmol/L Calcium 8.8 (8.4-10.2) mg/dL Total Bilirubin 0.3 (0.2-1.3) mg/dL AST 30 (14-36) IU/L ALT 27 (<35) IU/L Alkaline Phosphatase 202 H (38-126) U/L Total Protein 6.8 (6.3-8.2) g/dL Albumin 3.7 (3.5-5.0) g/dL Globulin 3.1 (1.7-4.1) g/dL Albumin/Globulin Ratio 1.2 (1.0-2.8) Lipase 47 (23-300) U/L HCG, Quant mIU/mL Urine RBC (0-5/HPF) Urine WBC (0-5/HPF) Ur Squamous Epith Cells (0-5/HPF) Urine Bacteria (None) Ur Culture Indicated? 10/11/21 10/11/21 Range/Units 15:21 17:00 WBC (4.5-11.0) X10^3/uL RBC (4.0-5.2) X10^6/uL Hgb (12.0-16.0) g/dL Hct (36-46) % MCV (80-100) fL MCH (26-34) PG MCHC (30-36) % RDW (11.6-14.8) % Plt Count (150-400) X10^3/uL Neut % (Auto) (50-75) % Lymph % (Auto) (25-40) % [place] % (Auto) (3-14) % Eos % (Auto) (2-4) % Baso % (Auto) (0-2) % Neut # (Auto) (6253-5742) /uL Lymph # (Auto) (5976-1449) /uL [place] # (Auto) (0-900) /uL Eos # (Auto) (0-450) /uL Baso # (Auto) (0-100) /uL Sodium (137-145) mmol/L Potassium (3.4-5.1) mmol/L Chloride (98-107) mmol/L Carbon Dioxide (22-32) mmol/L BUN (7-17) mg/dL Creatinine (0.52-1.04) mg/dL Estimated GFR (>60) mL/min BUN/Creatinine Ratio (6-22) Glucose (70-100) mg/dL Lactate (0.7-2.1) mmol/L Calcium (8.4-10.2) mg/dL Total Bilirubin (0.2-1.3) mg/dL AST (14-36) IU/L ALT (<35) IU/L Alkaline Phosphatase (38-126) U/L Total Protein (6.3-8.2) g/dL Albumin (3.5-5.0) g/dL Globulin (1.7-4.1) g/dL Albumin/Globulin Ratio (1.0-2.8) Lipase (23-300) U/L HCG, Quant < 2.4 mIU/mL Urine RBC 5-10/hpf H (0-5/HPF) Urine WBC 1-5/hpf (0-5/HPF) Ur Squamous Epith Cells 1-5 /hpf (0-5/HPF) Urine Bacteria Occasional (0-1) (None) Ur Culture Indicated? Cult not indicated Point of care testing: Point of Care Testing Test Results Negative Glucose POC 231 Urine Dip Bedside Urine Glucose 100 mg/dl Bedside Urine Bilirubin - Negative Bedside Urine Ketone - Negative Urine Specific [place] 1.010 Bedside Urine Occult Blood ++ Bedside Urine pH 7.5 Bedside Urine Protein + 30 Bedside Urine Urobilinogen 0.2 Bedside Urine Nitrite - Negative Bedside Urine Leukocytes - Negative Esterase Discharge Plan Departure Patient Disposition: Home Clinical Impression: Acute urinary retention, Hydroureter Constipation Qualifiers: Constipation type: unspecified constipation type Qualified Code(s): K59.00 - Constipation, unspecified Hydronephrosis Qualifiers: Hydronephrosis type: unspecified Qualified Code(s): N13.30 - Unspecified hydronephrosis Acute cystitis Qualifiers: Hematuria presence: with hematuria Qualified Code(s): N30.01 - Acute cystitis with hematuria Instructions: DI for Constipation, How to Care for Your Sigala Catheter -- Female, DI for Urinary Retention in Women Activity Restrictions/Additional Instructions: *You have been diagnosed with constipation without bowel obstruction, significant bladder distention with urinary retention after voiding. This caused both of your kidneys to swell and the ureters associated with them. I spoke with Urology and they have recommended bladder decompression with a Sigala catheter for 1-2 weeks to to allow you to you. You may have bleeding from your catheter after the initial volume is drained, this is a normal finding after a bladder has been stretched as far as yours was. Please stay hydrated, drink plenty of fluids and take your medications as prescribed. I have sent some additional stool medications for you and it may be easier for you to have a bowel movement now that you do not have a huge heavy bladder compressing your bowels. Please follow-up with Urology, call and make an appointment for next week, please call your primary care provider and let them know that you had significant urinary retention found on your CT today and the urologist recommended to have a lab draw on Saturday to check for electrolyte abnormalities. Please call your primary care provider and ask to have this completed there, or ask them to right you an order for a recheck lab draw on Saturday. Please come back to the emergency department if you develop any worsening symptoms. I have prescribed for you an antibiotic to treat a bladder infection because there may have been bacteria residing there, your high risk and we do not want you to get sick so please take this antibiotic twice a day for the next five days. Please continue to years MiraLax twice a day, use a suppository each day until you have a bowel movement, and tomorrow you may take magnesium citrate again, you may split into two doses if this is more helpful or take a full bottle. *What to do: *Please continue to take your regular medications as directed. [x ] New medication prescriptions sent to your pharmacy: [ [facility]] [ ] New medication written as a paper prescription [ ] No new medications given *Please follow up with your primary care provider in 2-3 days, call for an appointment. Let them know you were seen in the Emergency Department and that we asked that you be seen for follow-up. We will electronically transmit a record of today's note if your PCP is in our system *If you do not have a primary care provider please contact [phone] to establish care with one of the [facility] primary care providers. *Return to Emergency Department if you should have any new, worsening or concerning symptoms, such as [fever greater than 101F, chills, worsening pain, persistent vomiting or other bothersome symptoms] Prescriptions: New cephalexin 500 mg capsule 500 mg PO BID 5 Days Qty: 10 0RF bisacodyl 10 mg suppository 10 mg W[place] DAILY PRN (Reason: constipation) Qty: 12 0RF magnesium citrate Solution 150 ml PO BID PRN (Reason: constipation) Qty: 296 0RF hydrocodone-acetaminophen 5-325 mg tablet 1 tab PO TID PRN (Reason: pain) Qty: 14 0RF cephalexin 500 mg capsule 500 mg PO BID 5 Days Qty: 10 0RF bisacodyl 10 mg suppository 10 mg W[place] DAILY PRN (Reason: constipation) Qty: 12 0RF magnesium citrate Solution 150 ml PO BID PRN (Reason: constipation) Qty: 296 0RF No Action glucose 4 gram tablet,chewable 4 gram PO Q15M PRN (Reason: hypoglycemia) Qty: 30 0RF Rx Instructions: until response Glucagon Emergency Kit (human) 1 mg recon soln 1 mg subcut DIRECTED hydromorphone 2 mg Tablet 2 - 4 mg PO Q4HR MDD 8 PRN (Reason: Pain, Severe (7-10) for pelvic fracture) Qty: 60 0RF insulin aspart U-100 [Novolog Flexpen U-100 Insulin] 100 unit/mL (3 mL) insulin pen 10 unit SUBCUT AC Rx Instructions: Pt states she uses 10 units plus a sliding scale based on her blood sugar. She is vague in response to exact # over 10 units. diphenhydramine HCl 50 mg Capsule 50 mg PO BEDTIME PRN (Reason: Sleep) Rx Instructions: for itching and sleep Lantus Solostar U-100 Insulin 100 unit/mL (3 mL) Insulin Pen 25 unit SUBCUT BID 10 Days Qty: 5 2RF insulin aspart U-100 [Novolog U-100 Insulin aspart] 100 unit/mL solution 1 sliding scale dose SUBCUT USEASDIRECTD Qty: 10 2RF Rx Instructions: USE SLIDING SCALE PLS Referrals: Maria Ines Limon DO [Primary Care Provider] - Adonis Spicer MD [Non-Staff] - (This is the urologist that was on that I consulted about you, you may follow-up with him but he is in [place], try Dr. Vaca 1st.) Main Vaca MD [Physician] - 3-5 days Visit Report Forms: Patient Portal/API <José Light MD - Last Filed: 10/12/21 04:47> Cosign ED Attending Cosshaheedature Attestation: I was immediately available in the department for consultation. ?This documentation has been reviewed and I agree with assessment and plan. Supervised by José Light MD
[2021-10-11] MEDS: BISACODYL 10 MG SUPP PR (16:25)
[2021-10-11] MEDS: SODIUM CHLORIDE 0.9% 1,000 ML 1000 ML IV (16:26)
[2021-10-11 17:30] LABS: Bacteria Urine Occasional (0-1); Culture Indicated Urine Cult Not Indicated; RBC Urine 5-10/HPF (0-5/HPF); Squamous Epithelial Cell Urine 1-5 /HPF (0-5/HPF); WBC Urine 1-5/HPF (0-5/HPF)
[2021-10-11 17:36] LABS: HCG Quantitative /Beta subunit < 2.4 mIU/mL
--- NOTE | 2021-10-11 18:06 | DI.CT.S_ITS ---
PROCEDURE: CT ABDOMEN PELVIS W CON INDICATIONS: constipation vs ilieus vs bowel obstruction, tender RUQ TECHNIQUE: After the administration of IV contrast, axial sections were acquired from the lung bases to the pubic symphysis. Coronal and sagittal reformats were performed. For radiation dose reduction, the following was used: automated exposure control, adjustment of mA and/or kV according to patient size. COMPARISON: [facility], CT, CT ABDOMEN PELVIS W CON, 08/29/2021, 14:00. FINDINGS: Image quality: Excellent. Lung bases: Unremarkable. Heart: No significant findings. ABDOMEN: Liver: Hepatic steatosis is present. Liver is enlarged measuring 20.1 cm. Gallbladder: Unremarkable. Biliary ducts: Unremarkable. Pancreas: Unremarkable. Spleen: Unremarkable. Adrenal Glands: Unremarkable. Kidneys and Ureters: There is mild hydronephrosis and hydroureter bilaterally. Stomach and Bowel: Stomach, small bowel loops, and colon are unremarkable. Moderate stool is present without obstruction. Peritoneum: No abnormal intraperitoneal fluid. No free air. Ventral Wall: No hernia. Abdominal Nodes: No retroperitoneal or mesenteric adenopathy by size criteria. Vessels: Aorta and inferior vena cava are normal in size. PELVIS: Pelvic Organs: Unremarkable. Bladder: Bladder is markedly distended. Pelvic Nodes: No enlarged lymph nodes. Miscellaneous: No inguinal hernias are seen. Bones: Unremarkable. IMPRESSION: [id number] scattered stool without obstruction. Significant urinary bladder distention. Mild bilateral hydronephrosis and hydroureter are present. Dictated by: Alejandra Sanchez M.D. on 10/11/2021 at 19:33 Approved by: Alejandra Sanchez M.D. on 10/11/2021 at 19:43
[2021-10-11] MEDS: methylPREDNISolone 125 MG/2 ML VIAL 60 MG IV (18:20)
[2021-10-11] MEDS: diphenhydrAMINE 50 MG/ML VIAL 25 MG IV (18:20)
[2021-10-11] MEDS: cephALEXin 250 MG CAPSULE 500 MG PO (21:19)
[2021-10-11] MEDS: HYDROCODONE/ACET 5/325 PREPACK 1 BOTTLE MISC (21:19)
[2021-10-11] MEDS: HYDROCODONE/ACET 5/325 TABLET 1 TAB PO (21:19)
--- NOTE | 2021-10-11 21:41 | PC.NURSE ---
At @ 1855; pt suddenly desatted while sleeping to 13%; she had had benedryl pre-CT and dilaudid for pain; was awoken with a sternal rub. RT, [employer], RNs attended; O2 was administered via non-rebreather and she quickly rebounded to 98% on RA.
== END 2021-10-11 21:35 | disposition home or self-care (01) ==
PROVIDERS: Emergency Medicine; Emergency Provider Nurse Practitioner Critical Care Medicine; PCP Student in an Organized Health Care Education/Training Program
DX: K59.00 Constipation, unspecified (principal); N13.30 Unspecified hydronephrosis; N30.01 Acute cystitis with hematuria; R33.8 Other retention of urine; N13.4 Hydroureter
CPT/HCPCS: 36415; 74018; 74177; 80053; 81003; 81015; 81025; 82962; 83605; 83690; 84702; 85025; 96361; 96374; 96375; 96376; 99284; J1170; J1200; J2930; Q9967

== ENCOUNTER 2021-10-13 20:52 | Emergency (ER) | payer OTHER, MEDICAID, SELFPAY ==
[2021-10-13] VITALS (8 sets, daily range): BP systolic 172–186; BP diastolic 100–106; PULSE 102–113; RESP 16; TEMP 36.9; O2SAT 92–96; BMI 18.8
--- NOTE | 2021-10-13 20:51 | ED_ITS ---
HPI - Abdominal Pain General Chief Complaint: Abdominal Pain Stated Complaint: ABD/Cath pain Time Seen by Provider: 10/13/21 20:58 History of Present Illness HPI narrative: 31F nonsmoker with complex medical history including type 1 diabetes and frequent visits for DKA, she had been seen for a mechanical, ground level fall about 1 month ago which resulted in a nonoperative pelvic fracture. Additionally, she had been seen a few days ago for abdominal pain and was found to have urinary retention, a Sigala catheter was placed and she was discharged. She presents tonight by EMS with a chief complaint of severe perineal pain as well as right upper quadrant pain. She reports pain every time she eats in her epigastrium and has nausea but denies any vomiting. She has been managing her diabetes quite well and her sugars have been running right around 100. She has no runny nose, sore throat or cough. She denies any chest pain or shortness of breath. She denies any vaginal bleeding or discharge. Her abdominal pain seems to be worse when she moves and when she eats, she admits that it improves with rest. She denies any obvious radiation of her pain. Related Data Home Medications Medication Instructions Recorded Confirmed glucagon (human recombinant) 1 mg 1 mg SUBCUT DIRECTED 02/16/19 09/20/21 solution for injection (Glucagon Emergency Kit) insulin aspart U-100 100 unit/mL 10 unit SUBCUT AC 05/20/20 09/20/21 (3 mL) subcutaneous pen (Novolog Flexpen U-100 Insulin aspart) diphenhydramine HCl 50 mg capsule 50 mg PO BEDTIME PRN Sleep 09/29/20 09/20/21 Previous Rx's Medication Instructions Recorded glucose 4 gram chewable tablet 4 gram PO Q15M PRN hypoglycemia 12/12/18 #30 tabs insulin aspart U-100 100 unit/mL 1 sliding scale dose SUBCUT 04/13/21 subcutaneous solution (Novolog USEASDIRECTD #10 mL U-100 Insulin aspart) insulin glargine 100 unit/mL (3 25 unit (0.25 mL) SUBCUT BID 10 04/13/21 mL) subcutaneous pen (Lantus days #5 mL Solostar U-100 Insulin) hydromorphone 2 mg tablet 2 - 4 mg PO Q4HR PRN Pain, Severe 09/24/21 (7-10) for pelvic fracture #60 tabs bisacodyl 10 mg rectal suppository 10 mg LA DAILY PRN constipation 10/11/21 #12 ea bisacodyl 10 mg rectal suppository 10 mg LA DAILY PRN constipation 10/11/21 #12 ea cephalexin 500 mg capsule 500 mg PO BID 5 days #10 caps 10/11/21 cephalexin 500 mg capsule 500 mg PO BID acute cystitis 5 10/11/21 days #10 caps hydrocodone 5 mg-acetaminophen 325 1 tab PO TID PRN pain #14 tabs 10/11/21 mg tablet magnesium citrate 150 ml PO BID PRN constipation 10/11/21 #296 mL magnesium citrate 150 ml PO BID PRN constipation 10/11/21 #296 mL fluconazole 150 mg tablet 150 mg PO Q3D 2 doses #2 tabs 10/14/21 pantoprazole 40 mg tablet,delayed 40 mg PO DAILY #30 tabs 10/14/21 release (Protonix) Allergies Allergy/AdvReac Type Severity Reaction Status Date / Time abdalla [ABDALLA] Allergy Intermediate Hives, Verified 10/13/21 21:01 pruritus iodine [IODINE] Allergy Intermediate rash, itchy Verified 10/13/21 21:01 morphine Allergy Intermediate Difficulty Verified 10/13/21 21:01 Breathing shellfish derived Allergy Intermediate rash Verified 10/13/21 21:01 [SHELLFISH DERIVED] adhesive [ADHESIVE] Allergy Unknown tape Verified 10/13/21 21:01 latex [LATEX] Allergy Unknown Hives Verified 10/13/21 21:01 Review of Systems Review of Systems Narrative: GENERAL: See HPI HEENT: Denies sinus pain, ear pain, sore throat, difficulty swallowing, dizziness. RESPIRATORY: Denies dyspnea, cough, wheezing, hemoptysis, sputum. CARDIOVASCULAR: Denies chest pain, palpitations, orthopnea, edema, GASTROINTESTINAL: See HPI : See HPI MUSCULOSKELETAL: denies weakness, joint pain, or bony pain SKIN: Denies rash, skin lesions, or other NEUROLOGIC: Denies weakness, headache, numbness, change in speech, confusion, seizures, incoordination. PSYCHIATRIC: No concerning psychosocial issues. 12 point review of systems is negative except for those stated above Patient History Medical History DKA (diabetic ketoacidoses) History of pyelonephritis Irregular menstrual cycle Migraine headache Nephrolithiasis Noncompliance w/medication treatment due to intermit use of medication Type 1 diabetes mellitus Surgical History History of ureter stent Hx of cataract surgery Hx of local excision of skin lesion Status post laser lithotripsy of ureteral calculus [place] teeth extracted Family History Father In good health Mother Cardiac disease Social History details: Engaged household members: significant other Smoking Status: Never smoker alcohol intake: never Exam Narrative Exam Narrative: GENERAL: [31 ] year old patient appears stated age. Well-developed patient, in mild distress. Obviously uncomfortable HEAD: Atraumatic. Normocephalic. EYES: Pupils equal round and reactive. Extraocular motions intact. No scleral icterus. No injection or drainage. ENT: Nose without bleeding, purulent drainage. Throat without erythema, tonsillar hypertrophy or exudate. Airway patent. NECK: Trachea midline. Non tender CARDIOVASCULAR: Regular rate and rhythm without murmurs, gallops, or rubs. RESPIRATORY: Clear to auscultation. Breath sounds equal bilaterally. No wheezes, rales, or rhonchi. GASTROINTESTINAL: Abdomen soft, tender in the epigastrium and right upper quadrant, nondistended. EXTREMITIES: No edema or joint tenderness. BACK: Nontender without deformity or crepitance. No flank tenderness. NEURO: AOx3. SKIN: No rash or erythema of visible areas Initial Vital Signs Initial Vital Signs: Vital Signs Temperature 98.5 F 10/13/21 20:57 Pulse Rate 107 H 10/13/21 20:57 Respiratory Rate 16 10/13/21 20:57 Blood Pressure 176/105 H 10/13/21 20:57 Pulse Oximetry 94 10/13/21 20:57 Oxygen Delivery Method 10/13/21 20:57 Course Orders Ordered: ED Orders 10/13/21 21:03 US abdomen limited Stat 10/13/21 21:14 Complete Blood Count AUTO DIFF Stat Comprehensive Metabolic Panel Stat Lipase Stat 10/13/21 21:49 Chest [XR chest 1V] Stat 10/13/21 23:37 CT abdomen pelvis w con Stat Discontinued Medications Al Hydrox/Mg Hydrox/Simethicone (Mag Hydrox/Alum/Simeth 30 Ml Udc) 30 ml PO NOW ONE Stop: 10/14/21 01:48 Last Admin: 10/14/21 01:55 Dose: Not Given Documented By: RYLIE Al Hydrox/Mg Hydrox/Simethicone 20 ml/ Lidocaine HCl 15 ml 0 ml PO NOW ONE Stop: 10/14/21 01:29 Last Admin: 10/14/21 01:44 Dose: 35 ml Documented By: RYLIE Diphenhydramine HCl (Diphenhydramine 50 Mg/Ml Vial) 25 mg IV NOW ONE Stop: 10/13/21 23:38 Last Admin: 10/13/21 23:46 Dose: 25 mg Documented By: SANGEETA Fluconazole (Fluconazole 100 Mg Tablet) 150 mg PO NOW ONE Stop: 10/14/21 01:29 Last Admin: 10/14/21 01:44 Dose: 150 mg Documented By: RYLIE Hydromorphone HCl (Hydromorphone 1 Mg Inj) 1 mg IV NOW ONE Stop: 10/13/21 21:01 Last Admin: 10/13/21 21:09 Dose: 1 mg Documented By: SANGEETA Hydromorphone HCl (Hydromorphone 1 Mg Inj) 1 mg IV NOW ONE Stop: 10/13/21 23:38 Last Admin: 10/13/21 23:46 Dose: 1 mg Documented By: SANGEETA Sodium Chloride (Normal Saline 0.9%) 1,000 mls @ 1,000 mls/hr IV BOLUS ONE Stop: 10/13/21 21:59 Last Infusion: 10/13/21 22:32 Dose: 0 mls/hr Documented By: Admin: 10/13/21 21:09 Dose: 1,000 mls/hr Documented By: SANGEETA Lactated Ringer's (Lactated Ringers) 1,000 mls @ 1,000 mls/hr IV BOLUS ONE Stop: 10/14/21 00:36 Last Infusion: 10/14/21 01:57 Dose: 0 mls/hr Documented By: Admin: 10/13/21 23:45 Dose: 1,000 mls/hr Documented By: SANGEETA Methylprednisolone (Methylprednisolone 125 Mg/2 Ml Vial) 125 mg IV NOW ONE Stop: 10/13/21 23:38 Last Admin: 10/13/21 23:45 Dose: 125 mg Documented By: SANGEETA Pantoprazole Sodium (Pantoprazole 40 Mg Vial) 40 mg IV NOW ONE Stop: 10/13/21 23:38 Last Admin: 10/13/21 23:46 Dose: 40 mg Documented By: SANGEETA Vital Signs Vital signs: Vital Signs - 8 hr 10/13/21 20:57 10/13/21 21:22 10/13/21 21:30 Temperature 98.5 F Pulse Rate 107 H 105 H Respiratory Rate 16 Blood Pressure 176/105 H 172/101 H Pulse Oximetry 94 94 Oxygen Delivery Method Room Air 10/13/21 21:30 10/13/21 22:00 10/13/21 22:00 Temperature Pulse Rate 102 H 107 H Respiratory Rate Blood Pressure 175/106 H Pulse Oximetry 95 94 Oxygen Delivery Method 10/13/21 22:29 10/13/21 22:30 10/13/21 22:30 Temperature Pulse Rate 112 H 113 H Respiratory Rate Blood Pressure 174/100 H Pulse Oximetry 94 94 Oxygen Delivery Method 10/13/21 23:00 10/13/21 23:00 10/13/21 23:30 Temperature Pulse Rate 110 H Respiratory Rate Blood Pressure 186/105 H 179/106 H Pulse Oximetry 92 Oxygen Delivery Method 10/13/21 23:30 10/14/21 00:00 10/14/21 00:00 Temperature Pulse Rate 107 H 106 H Respiratory Rate Blood Pressure 178/105 H Pulse Oximetry 96 94 Oxygen Delivery Method 10/14/21 00:21 10/14/21 00:21 10/14/21 00:30 Temperature Pulse Rate 109 H Respiratory Rate Blood Pressure 183/106 H 186/105 H Pulse Oximetry 95 Oxygen Delivery Method 10/14/21 00:30 10/14/21 01:00 10/14/21 01:00 Temperature Pulse Rate 106 H 106 H Respiratory Rate Blood Pressure 197/107 H Pulse Oximetry 94 97 Oxygen Delivery Method 10/14/21 01:30 10/14/21 01:54 10/14/21 01:54 Temperature Pulse Rate 105 H 107 H Respiratory Rate Blood Pressure 185/107 H Pulse Oximetry 96 94 Oxygen Delivery Method MDM - Abdominal Pain Lab Data Result diagrams: 10/13/21 21:14 10/13/21 21:14 Labs: Lab Results 10/13/21 10/13/21 10/13/21 Range/Units 21:14 21:14 21:14 WBC 5.8 (4.5-11.0) X10^3/uL RBC 3.73 L (4.0-5.2) X10^6/uL Hgb 10.7 L (12.0-16.0) g/dL Hct 31.8 L (36-46) % MCV 85.4 (80-100) fL MCH 28.7 (26-34) PG MCHC 33.6 (30-36) % RDW 14.0 (11.6-14.8) % Plt Count 543 H (150-400) X10^3/uL Neut % (Auto) 63.0 (50-75) % Lymph % (Auto) 23.7 L (25-40) % [place] % (Auto) 10.6 (3-14) % Eos % (Auto) 1.5 L (2-4) % Baso % (Auto) 1.2 (0-2) % Neut # (Auto) 3700 (7813-8230) /uL Lymph # (Auto) 1400 (3836-7468) /uL [place] # (Auto) 600 (0-900) /uL Eos # (Auto) 100 (0-450) /uL Baso # (Auto) 100 (0-100) /uL Sodium 138 (137-145) mmol/L Potassium 4.1 (3.4-5.1) mmol/L Chloride 103 (98-107) mmol/L Carbon Dioxide 31 (22-32) mmol/L BUN 14 (7-17) mg/dL Creatinine 0.46 L (0.52-1.04) mg/dL Estimated GFR > 60 (>60) mL/min BUN/Creatinine Ratio 30.4 H (6-22) Glucose 102 H D (70-100) mg/dL Calcium 8.5 (8.4-10.2) mg/dL Total Bilirubin 0.4 (0.2-1.3) mg/dL AST 21 (14-36) IU/L ALT 18 (<35) IU/L Alkaline Phosphatase 128 H (38-126) U/L Total Protein 6.1 L (6.3-8.2) g/dL Albumin 3.3 L (3.5-5.0) g/dL Globulin 2.8 (1.7-4.1) g/dL Albumin/Globulin Ratio 1.2 (1.0-2.8) Lipase 32 (23-300) U/L Imaging Data US - abdomen: Radiologist's Impression: [address] [address] Ultrasound Report Signed Patient: Sarabjit Jimenes MR#: [id number] : 1990 Acct:[id number] Age/Sex: 31 / F Date of Service: 10/13/21 Loc: ED Accession Number: [id number] ?? Procedure: US abdomen limited Ordering Provider: Teddy Yap D.O. PROCEDURE: US ABDOMEN LIMITED ? INDICATIONS:? SEVERE RIGHT UPPER QUADRANT PAIN ? TECHNIQUE:? Real-time focused scanning was performed of the abdomen, with image documentation.? ? COMPARISON:? [facility], CT, CT ABDOMEN PELVIS W CON, 10/11/2021, 18:11.? [facility], CR, XR KUB, 10/11/2021, 17:03.? [facility], US, US ABDOMEN LIMITED, 02/26/2019, 20:17. ? FINDINGS:? An enlarged liver is again seen, with normal overall echogenicity. ? A mobile sludge ball can be seen within the gallbladder that measures up to 1.9 cm.? The gallbladder wall is not thickened, measuring 3 mm or less.? No specific pericholecystic fluid is seen.? The sonographic Gómez sign is negative. ? There is no biliary dilatation, the common bile duct measures 5 mm.? ? No significant pancreatic abnormality is seen on these images.? ? There is a right-sided pleural effusion present. ? ? ? IMPRESSION:? A mobile sludge ball can be seen within the gallbladder, without additional sonographic signs of cholecystitis. ? No biliary dilatation. ? Small right-sided pleural effusion seen. ? Enlarged liver. ? ? Dictated by: Remi Polanco M.D. on 10/13/2021 at 21:11 ? ? Approved by: Remi Polanco M.D. on 10/13/2021 at 21:13 ? Chest x-ray: Radiologist's Impression: Allergy/Adv: abdalla, iodine, morphine, shellfish derived, adhesive, latex (More??) Close Abdomen/Pelvis CT (Signed) Remi Polanco - 10/13/21 Chest X-Ray (Signed) Remi Polanco - 10/13/21 Abdomen Ultrasound (Signed) Leslie Polancoe - 10/13/21 Abdomen/Pelvis CT (Signed) SanchezAlejandra - 10/11/21 KUB X-Ray (Signed) SanchezAlejandra - 10/11/[address] (Signed) Jesus Winston - 09/19/21 Hip X-Ray (Signed) WinstonJesus trujillo - 09/19/21 Chest X-Ray (Signed) Whitney Henning - 08/29/21 Abdomen/Pelvis CT (Signed) Leslie Polancoe - 08/29/21 Telemetry Strips 08/29/21 Telemetry Strips 08/29/21 Telemetry Strips 04/12/21 Chest X-Ray (Signed) Stanley Mata - 03/25/21 Telemetry Strips 03/25/21 Chest X-Ray (Signed) Luis F Mahmood - 03/23/21 Telemetry Strips 03/23/21 Chest X-Ray (Signed) Luis F Mahmood - 02/19/21 Chest X-Ray (Signed) Luis F Mahmood - 02/18/21 Telemetry Strips 02/18/21 Chest X-Ray (Signed) Stanley Mata - 02/10/21 Telemetry Strips 02/10/21 Chest X-Ray (Signed) Jesus Winston - 02/10/21 Telemetry Strips 02/05/21 Telemetry Strips 01/02/21 Chest X-Ray (Signed) Willard Garcia - 01/02/21 Telemetry Strips 12/19/20 Telemetry Strips 12/05/20 Telemetry Strips 10/17/20 Telemetry Strips 10/09/20 Telemetry Strips 09/29/20 Telemetry Strips 05/19/20 Telemetry Strips 05/12/20 Chest X-Ray (Signed) Luis F Mahmood - 05/12/20 Abdomen/Pelvis CT (Signed) Jesus Winston - 05/03/20 Telemetry Strips 03/05/20 Chest X-Ray (Signed) Nataly Ozuna - 03/04/20 Ankle X-Ray (Signed) Nataly Ozuna - 03/04/20 Telemetry Strips 02/16/20 Chest X-Ray (Signed) Nayan Koroma - 02/16/20 Telemetry Strips 02/01/20 Chest X-Ray (Signed) Greyson Dotson - 02/01/20 Telemetry Strips 01/16/20 Telemetry Strips 01/03/20 Abdomen/Pelvis CT (Signed) Nataly Ozuna - 12/11/19 Telemetry Strips 11/22/19 Abdomen/Pelvis CT (Signed) Nayan Koroma - 11/22/19 Chest X-Ray (Signed) Remi Polanco - 11/22/19 Telemetry Strips 11/20/19 Chest X-Ray (Signed) Nataly Ozuna - 11/20/19 Telemetry Strips 11/05/19 Telemetry Strips 10/28/19 Telemetry Strips 10/14/19 Renal Ultrasound (Signed) Nayan Koroma - 09/30/19 Telemetry Strips 09/29/19 Chest X-Ray (Signed) Ken Underwood - 09/29/19 Renal Ultrasound (Signed) Whitney Henning - 03/17/19 Telemetry Strips 03/15/19 Bladder Scan 03/15/19 Abdomen/Pelvis CT (Signed) Alejandra Sanhcez - 03/15/[address] (Signed) Greyson Dotson - 03/09/19 Launch[facility] [address] XRay Report Signed Patient: Sarabjit Jimenes MR#: [id number] : 1990 Acct:[id number] Age/Sex: 31 / F Date of Service: 10/13/21 Loc: ED Accession Number: [id number] ?? Procedure: XR chest 1V Ordering Provider: Teddy Yap D.O. PROCEDURE:? XR CHEST 1V ? INDICATIONS:? R sided chest pain ? TECHNIQUE:? One view of the chest was acquired.? ? COMPARISON:? [facility], CT, CT ABDOMEN PELVIS W CON, 10/11/2021, 18:11.? [facility], US, US ABDOMEN LIMITED, 10/13/2021, 22:25.? [facility], CR, XR CHEST 1V, 03/25/2021, 3:08.? [facility], CR, XR CHEST 1V, 08/29/2021, 14:58. ? FINDINGS:? ? Surgical changes and devices:? None.? ? Lungs and pleura:? Lungs are clear.? No pleural effusions or pneumothorax.? ? Mediastinum:? Mediastinal contours appear normal.? Heart size is normal.? ? Bones and chest wall:? No suspicious bony lesions.? Overlying soft tissues appear unremarkable.? ? IMPRESSION:? ? Portable chest within normal limits. ? ? Negative for pneumothorax. ? (The pleural effusions that can be seen on the 10/11/2021 CT examination are not seen on this plain film study.) ? ? Dictated by: Remi Polanco M.D. on 10/13/2021 at 21:37 ? ? Approved by: Remi Polanco M.D. on 10/13/2021 at 21:40 ? CT scan - abdomen/pelvis: Radiologist's Impression: ? Chart Viewer Diagnostics Subcategory All Activity ??:?? All Time ??:?? All Subcategories Filter Laboratory Imaging Microbiology Pathology Blood Bank Tests Cardiovascular Other Specialty DATE TYPE STATUS REF RANGE/AUTHOR Hx 10/13/21 23:37 Abdomen/Pelvis CT Signed Remi Polanco 10/13/21 21:49 Chest X-Ray Signed Remi Polanco 10/13/21 21:03 Abdomen Ultrasound Signed Remi Polanco 10/11/21 18:06 Abdomen/Pelvis CT Signed Alejandra Sanchez 10/11/21 16:16 KUB X-Ray Signed Alejandra Sanchez 09/19/21 21:[address] Signed Jesus Winston 09/19/21 20:11 Hip X-Ray Signed Jesus Winston 08/29/21 14:47 Chest X-Ray Signed Whitney Henning 08/29/21 14:05 Abdomen/Pelvis CT Signed Remi Polanco 08/29/21 13:27 Telemetry Strips ? 08/29/21 13:27 Telemetry Strips ? 04/12/21 23:32 Telemetry Strips ? 03/25/21 02:58 Chest X-Ray Signed Stanley Mata 03/25/21 02:54 Telemetry Strips ? 03/23/21 02:36 Chest X-Ray Signed Luis F Mahmood 03/23/21 01:29 Telemetry Strips ? 02/19/21 00:00 Chest X-Ray Signed Luis F Mahmood 02/18/21 22:01 Chest X-Ray Signed Luis F Mahmood 02/18/21 18:50 Telemetry Strips ? 02/10/21 10:29 Chest X-Ray Signed Stanley Mata 02/10/21 02:49 Telemetry Strips ? 02/10/21 01:33 Chest X-Ray Signed Jesus Winston 02/05/21 23:56 Telemetry Strips ? 01/02/21 19:51 Telemetry Strips ? 01/02/21 19:49 Chest X-Ray Signed Willard Garcia 12/19/20 17:10 Telemetry Strips ? 12/05/20 11:18 Telemetry Strips ? 10/17/20 22:30 Telemetry Strips ? 10/09/20 06:27 Telemetry Strips ? 09/29/20 19:46 Telemetry Strips ? 05/19/20 20:22 Telemetry Strips ? 05/12/20 21:51 Telemetry Strips ? 05/12/20 20:52 Chest X-Ray Signed Luis F Mahmood 05/03/20 12:07 Abdomen/Pelvis CT Signed Jesus Winston 03/05/20 02:04 Telemetry Strips ? 03/04/20 23:53 Chest X-Ray Signed Nataly Ozuna 03/04/20 23:03 Ankle X-Ray Signed Nataly Ozuna 02/16/20 16:04 Telemetry Strips ? 02/16/20 12:54 Chest X-Ray Signed Nayan Koroma 02/01/20 08:01 Telemetry Strips ? 02/01/20 05:35 Chest X-Ray Signed Greyson Dotson 01/16/20 20:37 Telemetry Strips ? 01/03/20 17:56 Telemetry Strips ? 12/11/19 18:04 Abdomen/Pelvis CT Signed Nataly Ozuna 11/22/19 20:00 Telemetry Strips ? 11/22/19 16:38 Abdomen/Pelvis CT Signed Nayan Koroma 11/22/19 14:53 Chest X-Ray Signed Remi Polanco 11/20/19 18:20 Telemetry Strips ? 11/20/19 16:15 Chest X-Ray Signed Nataly Ozuna 11/05/19 10:16 Telemetry Strips ? 10/28/19 18:24 Telemetry Strips ? 10/14/19 17:12 Telemetry Strips ? 09/30/19 07:08 Renal Ultrasound Signed Nayan Koroma 09/29/19 16:42 Telemetry Strips ? 09/29/19 15:50 Chest X-Ray Signed YasmineKen 03/17/19 14:21 Renal Ultrasound Signed Whitney Henning 03/15/19 22:54 Telemetry Strips ? 03/15/19 22:54 Bladder Scan ? 03/15/19 21:37 Abdomen/Pelvis CT Signed Alejandra Sanchez 03/09/19 09:[address] Signed Greyson Dotson Natausha M ED 31, F?1990 MRN#? [id number] [facility] ER,?[facility]??R05?? 154.94cm 45.359kg BMI: 18.9kg/m? Abdominal Pain Acc#? [id number] Resus Status Not Ordered Hx Avail Special Indicators No Data to Display Home Meds Not Confirmed Prescription Monitoring Program Total 15 MME/Day Incomplete MEDICATIONS (INSTRUCTIONS) LAST TAKEN Active ??bisacodyl ??10 mgPRDAILYPRNconstipation#12 ea ??bisacodyl ??10 mgPRDAILYPRNconstipation#12 ea ??cephalexin ??500 mgPOBIDacute cystitis5 days#10 caps ??cephalexin ??500 mgPOBID5 days#10 caps ??diphenhydramine HCl ??50 mgPOBEDTIMEPRNSleep fluconazole 150 [id number] doses#2 tabs ??Glucagon Emergency Kit (human) ??1 mgSUBCUTAS DIRECTED *Product no longer available ??glucose ??4 [id number]#30 tabs ??hydrocodone-acetaminophen ??1 tabPOTIDPRNpain#14 tabs 15 MME/Day ??hydromorphone ??2 - 4 [id number], Severe (7-10) for pelvic fracture#60 tabs 0 MME/Day ??insulin aspart U-100 [Novolog Flexpen U-100 Insulin] ??10 unitSUBCUTAC ??insulin aspart U-100 [Novolog U-100 Insulin aspart] ??1 sliding scale doseSUBCUTUSEASDIRECTD#10 mL ??Lantus Solostar U-100 Insulin ??25 unit(0.25 mL)[id number] days#5 mL ??magnesium citrate ??150 mlPOBIDPRNconstipation#296 mL ??magnesium citrate ??150 mlPOBIDPRNconstipation#296 mL pantoprazole [Protonix] 40 mgPODAILY#30 tabs Allergies abdalla (ABDALLA) Hives, pruritus iodine (IODINE) rash, itchy morphine Difficulty Breathing shellfish derived (SHELLFISH DERIVED) rash adhesive (ADHESIVE) tape latex (LATEX) Hives Problems ? ONSET Constipation Acute urinary retention Hydronephrosis Hydroureter Acute cystitis Inferior pubic ramus fracture Closed fracture of superior pubic ramus Diabetic ketoacidosis associated with type 1 diabetes mellitus Noncompliance w/medication treatment due to intermit use of medication Diabetes mellitus type I DKA (diabetic ketoacidoses) Persistent headaches Hyperglycemia Vulvar abscess Vulvar candidiasis DKA (diabetic ketoacidoses) DKA (diabetic ketoacidosis) Fever of unknown origin Vulvovaginitis due to yeast YURI (acute kidney injury) Scalp cyst Abscess Abscess DKA (diabetic ketoacidosis) Hyperkalemia Abdominal pain Hypothermia Diabetic keto-acidosis Hx of local excision of skin lesion [place] teeth extracted Vital Signs Today 01:54 BP 185/107?H Pulse 107?H O2 Sat 94? Diagnostics Reports Sarabjit Jimenes??31??F??1990 ? Allergy/Adv: abdalla, iodine, morphine, shellfish derived, adhesive, latex (More??) Close Abdomen/Pelvis CT (Signed) Remi Polanco - 10/13/21 Chest X-Ray (Signed) Remi Polanco - 10/13/21 Abdomen Ultrasound (Signed) Remi Polanco - 10/13/21 Abdomen/Pelvis CT (Signed) Alejandra Sanchez - 10/11/21 KUB X-Ray (Signed) Alejandra Sanchez - 10/11/[address] (Signed) Jesus Winston - 09/19/21 Hip X-Ray (Signed) Jesus Winston - 09/19/21 Chest X-Ray (Signed) Whitney Henning - 08/29/21 Abdomen/Pelvis CT (Signed) Remi Polanco - 08/29/21 Telemetry Strips 08/29/21 Telemetry Strips 08/29/21 Telemetry Strips 04/12/21 Chest X-Ray (Signed) Stanley Mata - 03/25/21 Telemetry Strips 03/25/21 Chest X-Ray (Signed) Luis F Mahmood - 03/23/21 Telemetry Strips 03/23/21 Chest X-Ray (Signed) Luis F Mahmood - 02/19/21 Chest X-Ray (Signed) Luis F Mahmood - 02/18/21 Telemetry Strips 02/18/21 Chest X-Ray (Signed) Stanley Mata - 02/10/21 Telemetry Strips 02/10/21 Chest X-Ray (Signed) Jesus Winston - 02/10/21 Telemetry Strips 02/05/21 Telemetry Strips 01/02/21 Chest X-Ray (Signed) Willard Garcia - 01/02/21 Telemetry Strips 12/19/20 Telemetry Strips 12/05/20 Telemetry Strips 10/17/20 Telemetry Strips 10/09/20 Telemetry Strips 09/29/20 Telemetry Strips 05/19/20 Telemetry Strips 05/12/20 Chest X-Ray (Signed) Luis F Mahmood - 05/12/20 Abdomen/Pelvis CT (Signed) Jesus Winston - 05/03/20 Telemetry Strips 03/05/20 Chest X-Ray (Signed) Nataly Ozuna - 03/04/20 Ankle X-Ray (Signed) Nataly Ozuna - 03/04/20 Telemetry Strips 02/16/20 Chest X-Ray (Signed) Nayan Koroma - 02/16/20 Telemetry Strips 02/01/20 Chest X-Ray (Signed) Greyson Dotson - 02/01/20 Telemetry Strips 01/16/20 Telemetry Strips 01/03/20 Abdomen/Pelvis CT (Signed) Michael Ozunaeer - 12/11/19 Telemetry Strips 11/22/19 Abdomen/Pelvis CT (Signed) Nayan Koroma - 11/22/19 Chest X-Ray (Signed) Remi Polanco - 11/22/19 Telemetry Strips 11/20/19 Chest X-Ray (Signed) Nataly Ozuna - 11/20/19 Telemetry Strips 11/05/19 Telemetry Strips 10/28/19 Telemetry Strips 10/14/19 Renal Ultrasound (Signed) Nayan Koroma - 09/30/19 Telemetry Strips 09/29/19 Chest X-Ray (Signed) YasmineKen - 09/29/19 Renal Ultrasound (Signed) Whitney Henning - 03/17/19 Telemetry Strips 03/15/19 Bladder Scan 03/15/19 Abdomen/Pelvis CT (Signed) Alejandra Sanchez - 03/15/[address] (Signed) Greyson Dotson - 03/09/19 [place] [address] CT Scan Report Signed Patient: Sarabjit Jimenes MR#: [id number] : 1990 Acct:[id number] Age/Sex: 31 / F Date of Service: 10/13/21 Loc: ED Accession Number: [id number] ?? Procedure: CT abdomen pelvis w con Ordering Provider: Teddy Yap D.O. PROCEDURE:? CT ABDOMEN PELVIS W CON ? INDICATIONS:? severe pain in epigastrum ? TECHNIQUE:? After the administration of oral and IV contrast, axial sections were acquired from the lung bases to the pubic symphysis.? Coronal and sagittal reformats were performed.? For radiation dose reduction, the following was used:? automated exposure control, adjustment of mA and/or kV according to patient size. ? COMPARISON:? [facility], CT, CT ABDOMEN PELVIS W CON, 08/29/2021, 14:00.? [facility], CT, CT PEL WO CON, 09/19/2021, 21:48.? [facility], CR, XR CHEST 1V, 10/13/2021, 22:22.? [facility], US, US ABDOMEN LIMITED, 10/13/2021, 22:25.? [facility], CT, CT ABDOMEN PELVIS W CON, 10/11/2021, 18:11. ? FINDINGS:? Image quality:? Excellent.? ? Lung bases:? Small to moderate bilateral pleural effusions are seen, which are similar in size to the prior CT. Heart:? No significant findings. ? ? ABDOMEN: Liver:? Unremarkable.? ? Gallbladder:? Small gallstones versus vicarious excretion of contrast can be seen within the gallbladder.? No additional CT findings of cholecystitis are seen. Biliary ducts:? Unremarkable.? ? Pancreas:? Unremarkable.? ? Spleen:? Unremarkable.? ? Incidental note is made of accessory splenules along the inferior aspect of the primary spleen. Adrenal Glands:? Unremarkable.? ? Kidneys and Ureters:? Mild bilateral hydroureter and hydronephrosis can be seen, which is improved compared to the prior examination.? The kidneys demonstrate normal size and enhance symmetrically.? Areas of focal volume loss can be seen involving the right kidney. ? Stomach and Bowel:? There is a prominent amount of stool seen throughout the colon, with mild distention.? No significant gastric abnormality is seen. No dilated loops of small bowel are seen. Peritoneum:? There is a mild amount of ascites seen.? No pneumoperitoneum is seen. ? Ventral Wall: ? Generalized anasarca can be seen. Abdominal Nodes:? No retroperitoneal or mesenteric adenopathy by size criteria.? Vessels:? Aorta and inferior vena cava are normal in size.? ? PELVIS: Pelvic Organs:? Unremarkable.? ? Bladder:? A Sigala catheter is seen within the bladder, with incomplete bladder emptying.? Moderate bladder wall thickening is seen. Pelvic Nodes: No enlarged lymph nodes.? Miscellaneous: No inguinal hernias are seen. ? ? ? Bones:? Subacute fractures of the right pubis and the right inferior pubic ramus can be seen.? A subacute fracture of the right sacral ala is also seen.? No acute fractures are seen. ? ? IMPRESSION:? ? There is a prominent amount of stool seen within the colon, which is consistent with constipation.? ? Small to moderate bilateral pleural effusions are seen, similar to the prior. ? Improved bilateral hydronephrosis and hydroureter. ? There are areas of focal volume loss seen involving the right kidney.? Please consider prior episodes of infarction or infection. ? Anasarca. ? Moderate bladder wall thickening is seen.? Please consider UTI. ? A Sigala catheter is seen, with incomplete bladder emptying. ? ? ? Incidental note is made of: Gallstones versus vicarious excretion of contrast. Accessory splenules Subacute right sacral ala fracture Subacute fractures of the right pubis and right inferior pubic ramus ? Dictated by: Remi Polanco M.D. on 10/13/2021 at 23:30 ? ? Approved by: Remi Polanco M.D. on 10/13/2021 at 23:38 MDM Narrative Medical decision making narrative: Multiple etiologies for patient's symptoms considered include, but not limited to: [Gallbladder disease versus pancreatitis versus Bowel obstruction versus kidney stone versus diverticulitis versus other Patient's symptoms improved over duration of stay with above-stated therapies. History, physical exam, labs, imaging, and response to therapies have been reassuring. Findings and discharge diagnosis discussed with patient/family followed by verbalization of understanding Return precautions discussed with patient/family whom verbalize understanding. Pain has been well controlled and patient is tolerating oral hydration. Discharge Plan Departure Patient Disposition: Home Clinical Impression: Vulvovaginitis due to yeast, Abdominal pain Instructions: DI for Abdominal Pain-Adult Activity Restrictions/Additional Instructions: *You have been diagnosed with [abdominal pain, likely due to gastritis or reflux] * As we discussed your history and physical exam as well as labs and imaging are very reassuring. There is no evidence of any severe diagnoses that would require a specific or immediate intervention. *What to do: *Please continue to take your regular medications as directed. [x ] New medication prescriptions sent to your pharmacy: [ [facility]] *Please follow up with your primary care provider in 2-3 days, call for an appointment. Let them know you were seen in the Emergency Department and that we ask that you be seen in follow up. We will electronically transmit a record of today's note if your PCP is in our system *Please consider a clear liquid diet for the next 24-48 hours and then slowly advance to regular as tolerated. Also, try to avoid alcohol, nicotine, caffeine, spicy, acidic or fatty foods as this may worsen your symptoms *If you do not have a primary care provider please contact the [facility] Resource line at [phone]. They will ask some questions about your medical history and help get you set up with a doctor in the community. *Return to Emergency Department if you should have any new, worsening or concerning symptoms, such as [fever greater than 101 F, shaking chills, worsening pain, persistent vomiting or other bothersome symptoms] Prescriptions: New fluconazole 150 mg tablet 150 mg PO Q3D Qty: 2 0RF Rx Instructions: may repeat second dose 72 hrs after first dose if symptoms persist pantoprazole [Protonix] 40 mg tablet,delayed release (DR/EC) 40 mg PO DAILY Qty: 30 0RF No Action glucose 4 gram tablet,chewable 4 gram PO Q15M PRN (Reason: hypoglycemia) Qty: 30 0RF Rx Instructions: until response Glucagon Emergency Kit (human) 1 mg recon soln 1 mg subcut DIRECTED hydromorphone 2 mg Tablet 2 - 4 mg PO Q4HR MDD 8 PRN (Reason: Pain, Severe (7-10) for pelvic fracture) Qty: 60 0RF cephalexin 500 mg capsule 500 mg PO BID 5 Days Qty: 10 0RF bisacodyl 10 mg suppository 10 mg LA DAILY PRN (Reason: constipation) Qty: 12 0RF magnesium citrate Solution 150 ml PO BID PRN (Reason: constipation) Qty: 296 0RF hydrocodone-acetaminophen 5-325 mg tablet 1 tab PO TID PRN (Reason: pain) Qty: 14 0RF cephalexin 500 mg capsule 500 mg PO BID 5 Days Qty: 10 0RF bisacodyl 10 mg suppository 10 mg LA DAILY PRN (Reason: constipation) Qty: 12 0RF magnesium citrate Solution 150 ml PO BID PRN (Reason: constipation) Qty: 296 0RF insulin aspart U-100 [Novolog Flexpen U-100 Insulin] 100 unit/mL (3 mL) insulin pen 10 unit SUBCUT AC Rx Instructions: Pt states she uses 10 units plus a sliding scale based on her blood sugar. She is vague in response to exact # over 10 units. diphenhydramine HCl 50 mg Capsule 50 mg PO BEDTIME PRN (Reason: Sleep) Rx Instructions: for itching and sleep Lantus Solostar U-100 Insulin 100 unit/mL (3 mL) Insulin Pen 25 unit SUBCUT BID 10 Days Qty: 5 2RF insulin aspart U-100 [Novolog U-100 Insulin aspart] 100 unit/mL solution 1 sliding scale dose SUBCUT USEASDIRECTD Qty: 10 2RF Rx Instructions: USE SLIDING SCALE PLS Referrals: Maria Ines Limon DO [Primary Care Provider] -
--- NOTE | 2021-10-13 21:03 | DI.US.S_ITS ---
PROCEDURE: US ABDOMEN LIMITED INDICATIONS: SEVERE RIGHT UPPER QUADRANT PAIN TECHNIQUE: Real-time focused scanning was performed of the abdomen, with image documentation. COMPARISON: [facility], CT, CT ABDOMEN PELVIS W CON, 10/11/2021, 18:11. [facility], CR, XR KUB, 10/11/2021, 17:03. [facility], US, US ABDOMEN LIMITED, 02/26/2019, 20:17. FINDINGS: An enlarged liver is again seen, with normal overall echogenicity. A mobile sludge ball can be seen within the gallbladder that measures up to 1.9 cm. The gallbladder wall is not thickened, measuring 3 mm or less. No specific pericholecystic fluid is seen. The sonographic Gómez sign is negative. There is no biliary dilatation, the common bile duct measures 5 mm. No significant pancreatic abnormality is seen on these images. There is a right-sided pleural effusion present. IMPRESSION: A mobile sludge ball can be seen within the gallbladder, without additional sonographic signs of cholecystitis. No biliary dilatation. Small right-sided pleural effusion seen. Enlarged liver. Dictated by: Remi Polanco M.D. on 10/13/2021 at 21:11 Approved by: Remi Polanco M.D. on 10/13/2021 at 21:13
[2021-10-13] MEDS: HYDROMORPHONE 1 MG INJ IV ×2 (21:09→23:46)
[2021-10-13] MEDS: SODIUM CHLORIDE 0.9% 1,000 ML 1000 ML IV (21:09)
[2021-10-13 21:34] LABS: Add Manual Diff / Slide Review NO; Basophils Absolute Auto 100 /uL (0-100); Basophils Percent Auto 1.2 % (0-2); Eosinophils Absolute Auto 100 /uL (0-450); Eosinophils Percent Auto 1.5 % (2-4); Hematocrit 31.8 % (36-46); Hemoglobin 10.7 g/dL (12.0-16.0); Lymphocytes Absolute Auto 1400 /uL (1100-4500); Lymphocytes Percent Auto 23.7 % (25-40); Mean Corpuscular HGB Conc 33.6 % (30-36); Mean Corpuscular Hemoglobin 28.7 PG (26-34); Mean Corpuscular Volume 85.4 fL (80-100); Monocytes Absolute Auto 600 /uL (0-900); Monocytes Percent Auto 10.6 % (3-14); Neutrophils Absolute Auto 3700 /uL (1500-7000); Platelet Count 543 X10^3/uL (150-400); Red Blood Cell Count 3.73 X10^6/uL (4.0-5.2); White Blood Cell Count 5.8 X10^3/uL (4.5-11.0)
[2021-10-13 21:44] LABS: Alanine Aminotransferase 18 IU/L (<35); Albumin 3.3 g/dL (3.5-5.0); Albumin Globulin Ratio 1.2 (1.0-2.8); Alkaline Phosphatase 128 U/L (38-126); Aspartate Aminotransferase 21 IU/L (14-36); BUN Creatinine Ratio 30.4 (6-22); Bilirubin Total 0.4 mg/dL (0.2-1.3); Blood Urea Nitrogen 14 mg/dL (7-17); Calcium 8.5 mg/dL (8.4-10.2); Carbon Dioxide 31 mmol/L (22-32); Chloride 103 mmol/L (98-107); Estimated Glomerular Filt Rate > 60 mL/min (>60); Globulin 2.8 g/dL (1.7-4.1); Glucose 102 mg/dL (70-100); HEMOLYSIS < 15 (0-50); Lipase 32 U/L (23-300); Potassium 4.1 mmol/L (3.4-5.1); Sodium 138 mmol/L (137-145); Total Protein 6.1 g/dL (6.3-8.2)
--- NOTE | 2021-10-13 21:49 | DI.RAD.S_ITS ---
PROCEDURE: XR CHEST 1V INDICATIONS: R sided chest pain TECHNIQUE: One view of the chest was acquired. COMPARISON: [facility], CT, CT ABDOMEN PELVIS W CON, 10/11/2021, 18:11. [facility], US, US ABDOMEN LIMITED, 10/13/2021, 22:25. [facility], CR, XR CHEST 1V, 03/25/2021, 3:08. [facility], CR, XR CHEST 1V, 08/29/2021, 14:58. FINDINGS: Surgical changes and devices: None. Lungs and pleura: Lungs are clear. No pleural effusions or pneumothorax. Mediastinum: Mediastinal contours appear normal. Heart size is normal. Bones and chest wall: No suspicious bony lesions. Overlying soft tissues appear unremarkable. IMPRESSION: Portable chest within normal limits. Negative for pneumothorax. (The pleural effusions that can be seen on the 10/11/2021 CT examination are not seen on this plain film study.) Dictated by: Remi Polanco M.D. on 10/13/2021 at 21:37 Approved by: Remi Polanco M.D. on 10/13/2021 at 21:40
--- NOTE | 2021-10-13 23:37 | DI.CT.S_ITS ---
PROCEDURE: CT ABDOMEN PELVIS W CON INDICATIONS: severe pain in epigastrum TECHNIQUE: After the administration of oral and IV contrast, axial sections were acquired from the lung bases to the pubic symphysis. Coronal and sagittal reformats were performed. For radiation dose reduction, the following was used: automated exposure control, adjustment of mA and/or kV according to patient size. COMPARISON: [facility], CT, CT ABDOMEN PELVIS W CON, 08/29/2021, 14:00. [facility], CT, CT PEL WO CON, 09/19/2021, 21:48. [facility], CR, XR CHEST 1V, 10/13/2021, 22:22. [facility], US, US ABDOMEN LIMITED, 10/13/2021, 22:25. [facility], CT, CT ABDOMEN PELVIS W CON, 10/11/2021, 18:11. FINDINGS: Image quality: Excellent. Lung bases: Small to moderate bilateral pleural effusions are seen, which are similar in size to the prior CT. Heart: No significant findings. ABDOMEN: Liver: Unremarkable. Gallbladder: Small gallstones versus vicarious excretion of contrast can be seen within the gallbladder. No additional CT findings of cholecystitis are seen. Biliary ducts: Unremarkable. Pancreas: Unremarkable. Spleen: Unremarkable. Incidental note is made of accessory splenules along the inferior aspect of the primary spleen. Adrenal Glands: Unremarkable. Kidneys and Ureters: Mild bilateral hydroureter and hydronephrosis can be seen, which is improved compared to the prior examination. The kidneys demonstrate normal size and enhance symmetrically. Areas of focal volume loss can be seen involving the right kidney. Stomach and Bowel: There is a prominent amount of stool seen throughout the colon, with mild distention. No significant gastric abnormality is seen. No dilated loops of small bowel are seen. Peritoneum: There is a mild amount of ascites seen. No pneumoperitoneum is seen. Ventral Wall: Generalized anasarca can be seen. Abdominal Nodes: No retroperitoneal or mesenteric adenopathy by size criteria. Vessels: Aorta and inferior vena cava are normal in size. PELVIS: Pelvic Organs: Unremarkable. Bladder: A Sigala catheter is seen within the bladder, with incomplete bladder emptying. Moderate bladder wall thickening is seen. Pelvic Nodes: No enlarged lymph nodes. Miscellaneous: No inguinal hernias are seen. Bones: Subacute fractures of the right pubis and the right inferior pubic ramus can be seen. A subacute fracture of the right sacral ala is also seen. No acute fractures are seen. IMPRESSION: There is a prominent amount of stool seen within the colon, which is consistent with constipation. Small to moderate bilateral pleural effusions are seen, similar to the prior. Improved bilateral hydronephrosis and hydroureter. There are areas of focal volume loss seen involving the right kidney. Please consider prior episodes of infarction or infection. Anasarca. Moderate bladder wall thickening is seen. Please consider UTI. A Sigala catheter is seen, with incomplete bladder emptying. Incidental note is made of: Gallstones versus vicarious excretion of contrast. Accessory splenules Subacute right sacral ala fracture Subacute fractures of the right pubis and right inferior pubic ramus Dictated by: Remi Polanco M.D. on 10/13/2021 at 23:30 Approved by: Remi Polanco M.D. on 10/13/2021 at 23:38
[2021-10-13] MEDS: LACTATED RINGERS 1,000 ML 1000 ML IV (23:45)
[2021-10-13] MEDS: methylPREDNISolone 125 MG/2 ML VIAL IV (23:45)
[2021-10-13] MEDS: PANTOPRAZOLE 40 MG VIAL IV (23:46)
[2021-10-13] MEDS: diphenhydrAMINE 50 MG/ML VIAL 25 MG IV (23:46)
[2021-10-14] VITALS (8 sets, daily range): BP systolic 178–197; BP diastolic 104–107; PULSE 105–109; O2SAT 94–97
[2021-10-14] MEDS: MAG HYDROX/ALUMINUM/SIMETH SUS 20 ML, LIDOCAINE VISCOUS 2% 15 ML PO (01:44)
[2021-10-14] MEDS: FLUCONAZOLE 100 MG TABLET 150 MG PO (01:44)
--- NOTE | 2021-10-14 01:58 | PC.NURSE ---
Dr Yap aware of high blood pressure
== END 2021-10-14 02:44 | disposition home or self-care (01) ==
PROVIDERS: Emergency Provider Emergency Medicine; PCP Student in an Organized Health Care Education/Training Program
DX: B37.3 Candidiasis of vulva and vagina (principal); R10.11 Right upper quadrant pain; R07.9 Chest pain, unspecified
CPT/HCPCS: 36415; 71045; 74177; 76705; 80053; 83690; 85025; 96361; 96374; 96375; 96376; 99284; C9113; J1170; J1200; J2930

== ENCOUNTER 2021-10-15 14:41 | Emergency (ER) | payer OTHER, MEDICAID, SELFPAY ==
[2021-10-15] VITALS (9 sets, daily range): BP systolic 163–189; BP diastolic 100–110; PULSE 98–104; RESP 10–16; O2SAT 93–98
[2021-10-15 15:28] LABS: Alanine Aminotransferase 19 IU/L (<35); Albumin 3.4 g/dL (3.5-5.0); Albumin Globulin Ratio 1.2 (1.0-2.8); Alkaline Phosphatase 141 U/L (38-126); Aspartate Aminotransferase 25 IU/L (14-36); BUN Creatinine Ratio 40.5 (6-22); Bilirubin Total 0.5 mg/dL (0.2-1.3); Blood Urea Nitrogen 17 mg/dL (7-17); Carbon Dioxide 29 mmol/L (22-32); Chloride 104 mmol/L (98-107); Estimated Glomerular Filt Rate > 60 mL/min (>60); Globulin 2.8 g/dL (1.7-4.1); Glucose 82 mg/dL (70-100); HEMOLYSIS < 15 (0-50); Lipase 31 U/L (23-300); Potassium 4.5 mmol/L (3.4-5.1); Sodium 137 mmol/L (137-145); Total Protein 6.2 g/dL (6.3-8.2)
[2021-10-15 15:31] LABS: Add Manual Diff / Slide Review NO; Basophils Absolute Auto 100 /uL (0-100); Basophils Percent Auto 1.3 % (0-2); Eosinophils Absolute Auto 100 /uL (0-450); Hematocrit 33.3 % (36-46); Hemoglobin 11.1 g/dL (12.0-16.0); Lymphocytes Absolute Auto 1500 /uL (1100-4500); Lymphocytes Percent Auto 26.3 % (25-40); Mean Corpuscular HGB Conc 33.4 % (30-36); Mean Corpuscular Hemoglobin 28.6 PG (26-34); Mean Corpuscular Volume 85.5 fL (80-100); Monocytes Absolute Auto 600 /uL (0-900); Monocytes Percent Auto 9.6 % (3-14); Neutrophils Absolute Auto 3600 /uL (1500-7000); Neutrophils Percent Auto 61.8 % (50-75); Platelet Count 560 X10^3/uL (150-400); Red Blood Cell Count 3.89 X10^6/uL (4.0-5.2); Red Cell Distribution Width 14.4 % (11.6-14.8); White Blood Cell Count 5.8 X10^3/uL (4.5-11.0)
--- NOTE | 2021-10-15 18:53 | ED.NAVMDI ---
HPI - Nausea/Vomiting/Diarrhea General Chief complaint: Nausea/Vomiting/Diarrhea Stated complaint: feeling unwell Time Seen by Provider: 10/15/21 18:03 Source: EMS Mode of arrival: EMS History of Present Illness HPI Narrative: 31F nonsmoker with complex medical history including type 1 diabetes and frequent visits for DKA, with a known healing pelvic fracture and recent visit for urinary retention with Sigala catheter in place presents with her mother with the chief complaint of generalized abdominal pain most notable in her entire abdomen, pelvis and all extremities. She had been seen and evaluated a few days ago under relatively similar circumstances and had persistent episodes of vomiting that were controlled prior to her brain discharge. She had imaging that demonstrated some questionable findings on the gallbladder but certainly no surgical findings. Since then she is unable to keep down any food or liquid and each time she eats she developed significant epigastric pain and vomiting. She has had no fever or chills. Her sugars have been stable at home and running between 80 and 110 Related Data Home Medications Medication Instructions Recorded Confirmed glucagon (human recombinant) 1 mg 1 mg SUBCUT DIRECTED 02/16/19 09/20/21 solution for injection (Glucagon Emergency Kit) insulin aspart U-100 100 unit/mL 10 unit SUBCUT AC 05/20/20 09/20/21 (3 mL) subcutaneous pen (Novolog Flexpen U-100 Insulin aspart) diphenhydramine HCl 50 mg capsule 50 mg PO BEDTIME PRN Sleep 09/29/20 09/20/21 Previous Rx's Medication Instructions Recorded glucose 4 gram chewable tablet 4 gram PO Q15M PRN hypoglycemia 12/12/18 #30 tabs insulin aspart U-100 100 unit/mL 1 sliding scale dose SUBCUT 04/13/21 subcutaneous solution (Novolog USEASDIRECTD #10 mL U-100 Insulin aspart) insulin glargine 100 unit/mL (3 25 unit (0.25 mL) SUBCUT BID 10 04/13/21 mL) subcutaneous pen (Lantus days #5 mL Solostar U-100 Insulin) hydromorphone 2 mg tablet 2 - 4 mg PO Q4HR PRN Pain, Severe 09/24/21 (7-10) for pelvic fracture #60 tabs bisacodyl 10 mg rectal suppository 10 mg TN DAILY PRN constipation 10/11/21 #12 ea bisacodyl 10 mg rectal suppository 10 mg TN DAILY PRN constipation 10/11/21 #12 ea cephalexin 500 mg capsule 500 mg PO BID 5 days #10 caps 10/11/21 cephalexin 500 mg capsule 500 mg PO BID acute cystitis 5 10/11/21 days #10 caps hydrocodone 5 mg-acetaminophen 325 1 tab PO TID PRN pain #14 tabs 10/11/21 mg tablet magnesium citrate 150 ml PO BID PRN constipation 10/11/21 #296 mL magnesium citrate 150 ml PO BID PRN constipation 10/11/21 #296 mL fluconazole 150 mg tablet 150 mg PO Q3D 2 doses #2 tabs 10/14/21 pantoprazole 40 mg tablet,delayed 40 mg PO DAILY #30 tabs 10/14/21 release (Protonix) Allergies Allergy/AdvReac Type Severity Reaction Status Date / Time abdalla [ABDALLA] Allergy Intermediate Hives, Verified 10/15/21 14:31 pruritus iodine [IODINE] Allergy Intermediate rash, itchy Verified 10/15/21 14:31 morphine Allergy Intermediate Difficulty Verified 10/15/21 14:31 Breathing shellfish derived Allergy Intermediate rash Verified 10/15/21 14:31 [SHELLFISH DERIVED] adhesive [ADHESIVE] Allergy Unknown tape Verified 10/15/21 14:31 latex [LATEX] Allergy Unknown Hives Verified 10/15/21 14:31 Review of Systems Review of Systems Narrative: GENERAL: See HPI HEENT: Denies sinus pain, ear pain, sore throat, difficulty swallowing, dizziness. RESPIRATORY: Denies dyspnea, cough, wheezing, hemoptysis, sputum. CARDIOVASCULAR: Denies chest pain, palpitations, orthopnea, edema, GASTROINTESTINAL: See HPI : See HPI MUSCULOSKELETAL: denies weakness, joint pain, or bony pain SKIN: Denies rash, skin lesions, or other NEUROLOGIC: Denies weakness, headache, numbness, change in speech, confusion, seizures, incoordination. PSYCHIATRIC: No concerning psychosocial issues. 12 point review of systems is negative except for those stated above Patient History Medical History DKA (diabetic ketoacidoses) History of pyelonephritis Irregular menstrual cycle Migraine headache Nephrolithiasis Noncompliance w/medication treatment due to intermit use of medication Type 1 diabetes mellitus Surgical History History of ureter stent Hx of cataract surgery Hx of local excision of skin lesion Status post laser lithotripsy of ureteral calculus [place] teeth extracted Family History Father In good health Mother Cardiac disease Social History details: Engaged household members: significant other Smoking Status: Never smoker alcohol intake: never Smoking Status: Never smoker alcohol intake frequency: holidays/special occasions only Substance Use Type: does not use Exam Narrative Exam Narrative: GENERAL: [31] year old patient appears stated age. Well-developed patient, in moderate distress, tearful, complaining of all over pain HEAD: Atraumatic. Normocephalic. EYES: Pupils equal round and reactive. Extraocular motions intact. No scleral icterus. No injection or drainage. ENT: Nose without bleeding, purulent drainage. Throat without erythema, tonsillar hypertrophy or exudate. Airway patent. NECK: Trachea midline. Non tender CARDIOVASCULAR: Regular rate and rhythm without murmurs, gallops, or rubs. RESPIRATORY: Clear to auscultation. Breath sounds equal bilaterally. No wheezes, rales, or rhonchi. GASTROINTESTINAL: Abdomen soft, tender in the epigastrium and right upper quadrant, nondistended. EXTREMITIES: No edema or joint tenderness. BACK: Nontender without deformity or crepitance. No flank tenderness. NEURO: AOx3. SKIN: No rash or erythema of visible areas Initial Vital Signs Initial Vital Signs: Vital Signs Pulse Rate 102 H 10/15/21 15:04 Respiratory Rate 13 10/15/21 15:04 Pulse Oximetry 95 10/15/21 15:04 Course Orders Ordered: Discontinued Medications Haloperidol (Haloperidol 5 Mg/Ml Vial) 5 mg IM NOW ONE Stop: 10/15/21 18:57 Last Admin: 10/15/21 19:21 Dose: 5 mg Documented By: [facility] Vital Signs Vital signs: Vital Signs - 8 hr 10/15/21 23:48 Pulse Rate 101 H Respiratory Rate 12 Blood Pressure 163/103 H Pulse Oximetry 93 Oxygen Delivery Method Room Air MDM - Nausea/Vomiting/Diarrhea Lab Data Result diagrams: 10/15/21 15:05 10/15/21 15:05 Labs: Lab Results 10/15/21 10/15/21 10/15/21 Range/Units 15:05 15:05 19:18 WBC 5.8 (4.5-11.0) X10^3/uL RBC 3.89 L (4.0-5.2) X10^6/uL Hgb 11.1 L (12.0-16.0) g/dL Hct 33.3 L (36-46) % MCV 85.5 (80-100) fL MCH 28.6 (26-34) PG MCHC 33.4 (30-36) % RDW 14.4 (11.6-14.8) % Plt Count 560 H (150-400) X10^3/uL Neut % (Auto) 61.8 (50-75) % Lymph % (Auto) 26.3 (25-40) % Lamb % (Auto) 9.6 (3-14) % Eos % (Auto) 1.0 L (2-4) % Baso % (Auto) 1.3 (0-2) % Neut # (Auto) 3600 (0836-9172) /uL Lymph # (Auto) 1500 (6955-3972) /uL Lamb # (Auto) 600 (0-900) /uL Eos # (Auto) 100 (0-450) /uL Baso # (Auto) 100 (0-100) /uL VBG pH 7.49 H (7.33-7.43) VBG pCO2 39.6 L (45-50) mmHg VBG pO2 65 H (35-45) mmHg VBG HCO3 30 H (23-28) mmol/L VBG Total CO2 31 H (24-29) mmol/L VBG O2 Saturation 94 H (70-75) % VBG Base Excess 7.0 H (0-4) mmol/L Sodium 137 (137-145) mmol/L Potassium 4.5 (3.4-5.1) mmol/L Chloride 104 (98-107) mmol/L Carbon Dioxide 29 (22-32) mmol/L BUN 17 (7-17) mg/dL Creatinine 0.42 L (0.52-1.04) mg/dL Estimated GFR > 60 (>60) mL/min BUN/Creatinine Ratio 40.5 H (6-22) Glucose 82 (70-100) mg/dL Calcium 9.0 (8.4-10.2) mg/dL Total Bilirubin 0.5 (0.2-1.3) mg/dL AST 25 (14-36) IU/L ALT 19 (<35) IU/L Alkaline Phosphatase 141 H (38-126) U/L Total Protein 6.2 L (6.3-8.2) g/dL Albumin 3.4 L (3.5-5.0) g/dL Globulin 2.8 (1.7-4.1) g/dL Albumin/Globulin Ratio 1.2 (1.0-2.8) Lipase 31 (23-300) U/L Urine RBC (0-5/HPF) Urine WBC (0-5/HPF) Ur Squamous Epith Cells (0-5/HPF) Urine Bacteria (None) Ur Culture Indicated? 10/15/21 Range/Units 20:44 WBC (4.5-11.0) X10^3/uL RBC (4.0-5.2) X10^6/uL Hgb (12.0-16.0) g/dL Hct (36-46) % MCV (80-100) fL MCH (26-34) PG MCHC (30-36) % RDW (11.6-14.8) % Plt Count (150-400) X10^3/uL Neut % (Auto) (50-75) % Lymph % (Auto) (25-40) % Lamb % (Auto) (3-14) % Eos % (Auto) (2-4) % Baso % (Auto) (0-2) % Neut # (Auto) (4593-5663) /uL Lymph # (Auto) (3244-5146) /uL Lamb # (Auto) (0-900) /uL Eos # (Auto) (0-450) /uL Baso # (Auto) (0-100) /uL VBG pH (7.33-7.43) VBG pCO2 (45-50) mmHg VBG pO2 (35-45) mmHg VBG HCO3 (23-28) mmol/L VBG Total CO2 (24-29) mmol/L VBG O2 Saturation (70-75) % VBG Base Excess (0-4) mmol/L Sodium (137-145) mmol/L Potassium (3.4-5.1) mmol/L Chloride (98-107) mmol/L Carbon Dioxide (22-32) mmol/L BUN (7-17) mg/dL Creatinine (0.52-1.04) mg/dL Estimated GFR (>60) mL/min BUN/Creatinine Ratio (6-22) Glucose (70-100) mg/dL Calcium (8.4-10.2) mg/dL Total Bilirubin (0.2-1.3) mg/dL AST (14-36) IU/L ALT (<35) IU/L Alkaline Phosphatase (38-126) U/L Total Protein (6.3-8.2) g/dL Albumin (3.5-5.0) g/dL Globulin (1.7-4.1) g/dL Albumin/Globulin Ratio (1.0-2.8) Lipase (23-300) U/L Urine RBC 5-10/hpf H (0-5/HPF) Urine WBC None seen (0-5/HPF) Ur Squamous Epith Cells 0-1 /hpf (0-5/HPF) Urine Bacteria Occasional (0-1) (None) Ur Culture Indicated? Cult not indicated Point of Care Testing Glucose POC 98 Urine Dip Bedside Urine Glucose Negative Bedside Urine Bilirubin - Negative Bedside Urine Ketone +/- 5 Urine Specific [place] 1.015 Bedside Urine Occult Blood +++ Bedside Urine pH 7.0 Bedside Urine Protein +++ 300 Bedside Urine Urobilinogen - Negative Bedside Urine Nitrite - Negative Bedside Urine Leukocytes - Negative Esterase MDM Narrative Medical decision making narrative: Multiple etiologies for patient's symptoms considered include, but not limited to: [Gallbladder disease versus pancreatitis versus other Patient's symptoms improved over duration of stay with above-stated therapies. History, physical exam, labs, imaging, and response to therapies have been reassuring. Findings and discharge diagnosis discussed with patient/family followed by verbalization of understanding Return precautions discussed with patient/family whom verbalize understanding. Pain has been well controlled and patient is tolerating oral hydration. Discharge Plan Departure Patient Disposition: Home Clinical Impression: Abdominal pain, Acute vomiting Instructions: DI for Abdominal Pain-Adult, DI for Vomiting -- Adult Activity Restrictions/Additional Instructions: *You have been diagnosed with [abdominal pain] * As we discussed your history and physical exam as well as labs and imaging are very reassuring. There is no evidence of any severe diagnoses that would require a specific or immediate intervention. *What to do: *Please continue to take your regular medications as directed. *Please follow up with your primary care provider in 2-3 days, call for an appointment. Let them know you were seen in the Emergency Department and that we ask that you be seen in follow up. We will electronically transmit a record of today's note if your PCP is in our system *Please consider a clear liquid diet for the next 24-48 hours and then slowly advance to regular as tolerated. Also, try to avoid alcohol, nicotine, caffeine, spicy, acidic or fatty foods as this may worsen your symptoms *If you do not have a primary care provider please contact the [facility] Resource line at [phone]. They will ask some questions about your medical history and help get you set up with a doctor in the community. *Return to Emergency Department if you should have any new, worsening or concerning symptoms, such as [fever greater than 101 F, shaking chills, worsening pain, persistent vomiting or other bothersome symptoms] Prescriptions: No Action glucose 4 gram tablet,chewable 4 gram PO Q15M PRN (Reason: hypoglycemia) Qty: 30 0RF Rx Instructions: until response Glucagon Emergency Kit (human) 1 mg recon soln 1 mg subcut DIRECTED hydromorphone 2 mg Tablet 2 - 4 mg PO Q4HR MDD 8 PRN (Reason: Pain, Severe (7-10) for pelvic fracture) Qty: 60 0RF cephalexin 500 mg capsule 500 mg PO BID 5 Days Qty: 10 0RF bisacodyl 10 mg suppository 10 mg TN DAILY PRN (Reason: constipation) Qty: 12 0RF magnesium citrate Solution 150 ml PO BID PRN (Reason: constipation) Qty: 296 0RF hydrocodone-acetaminophen 5-325 mg tablet 1 tab PO TID PRN (Reason: pain) Qty: 14 0RF cephalexin 500 mg capsule 500 mg PO BID 5 Days Qty: 10 0RF bisacodyl 10 mg suppository 10 mg TN DAILY PRN (Reason: constipation) Qty: 12 0RF magnesium citrate Solution 150 ml PO BID PRN (Reason: constipation) Qty: 296 0RF fluconazole 150 mg tablet 150 mg PO Q3D Qty: 2 0RF Rx Instructions: may repeat second dose 72 hrs after first dose if symptoms persist pantoprazole [Protonix] 40 mg tablet,delayed release (DR/EC) 40 mg PO DAILY Qty: 30 0RF insulin aspart U-100 [Novolog Flexpen U-100 Insulin] 100 unit/mL (3 mL) insulin pen 10 unit SUBCUT AC Rx Instructions: Pt states she uses 10 units plus a sliding scale based on her blood sugar. She is vague in response to exact # over 10 units. diphenhydramine HCl 50 mg Capsule 50 mg PO BEDTIME PRN (Reason: Sleep) Rx Instructions: for itching and sleep Lantus Solostar U-100 Insulin 100 unit/mL (3 mL) Insulin Pen 25 unit SUBCUT BID 10 Days Qty: 5 2RF insulin aspart U-100 [Novolog U-100 Insulin aspart] 100 unit/mL solution 1 sliding scale dose SUBCUT USEASDIRECTD Qty: 10 2RF Rx Instructions: USE SLIDING SCALE PLS Referrals: Maria Ines Limon DO [Primary Care Provider] - Visit Report Forms: Patient Portal/API
[2021-10-15] MEDS: HALOPERIDOL 5 MG/ML VIAL IM (19:21)
[2021-10-15 19:41] LABS: HCO3 VBG 30 mmol/L (23-28); PCO2 VBG 39.6 mmHg (45-50); PO2 VBG 65 mmHg (35-45); pH VBG 7.49 (7.33-7.43)
--- NOTE | 2021-10-15 19:41 | DI.US.S_ITS ---
PROCEDURE: US ABDOMEN LIMITED INDICATIONS: severe, worsening RUQ pain TECHNIQUE: Real-time focused scanning was performed of the abdomen, with image documentation. COMPARISON: [facility], , US ABDOMEN LIMITED, 10/13/2021, 22:25. FINDINGS: The liver demonstrates no discrete hepatic mass. Dependent irregular biliary sludge is redemonstrated within the gallbladder. No shadowing gallstones identified. No gallbladder wall thickening or pericholecystic fluid. No reported sonographic Gómez's sign. No intra or extrahepatic biliary ductal dilatation. The visualized pancreas appears unremarkable sonographically. A right pleural effusion was noted. IMPRESSION: 1. Biliary sludge redemonstrated without cholelithiasis or evidence of cholecystitis. 2. No biliary ductal dilatation. 3. Right pleural effusion noted. Dictated by: Jesus Winston M.D. on 10/15/2021 at 22:17 Approved by: Jesus Winston M.D. on 10/15/2021 at 22:20
[2021-10-15 19:42] LABS: Oxygen Saturation VBG 94 % (70-75); Total CO2 VBG 31 mmol/L (24-29)
[2021-10-15 21:02] LABS: Culture Indicated Urine Cult Not Indicated; RBC Urine 5-10/HPF (0-5/HPF); Squamous Epithelial Cell Urine 0-1 /HPF (0-5/HPF); WBC Urine None Seen (0-5/HPF)
[2021-10-15 21:03] LABS: Bacteria Urine Occasional (0-1)
--- NOTE | 2021-10-15 22:54 | PC.NURSE ---
Patient requesting to go home I am tired, I feel little better I just want to go home Updated patient provider would like to trail PO Challenge.
== END 2021-10-16 00:23 | disposition home or self-care (01) ==
PROVIDERS: Family Medicine Addiction Medicine; Emergency Provider Emergency Medicine; PCP Student in an Organized Health Care Education/Training Program
DX: R10.9 Unspecified abdominal pain (principal); R11.10 Vomiting, unspecified
CPT/HCPCS: 36415; 76705; 80053; 81003; 81015; 82805; 83690; 85025; 87086; 96372; 99284; J1630

== ENCOUNTER 2021-11-08 11:35 | Emergency (ER) | payer OTHER, MEDICAID, SELFPAY ==
[2021-11-08] VITALS (11 sets, daily range): BP systolic 175–187; BP diastolic 110–117; PULSE 112–122; RESP 20; TEMP 36.5; O2SAT 96–99; BMI 22.6
--- NOTE | 2021-11-08 11:55 | ED.ABDPAIN ---
HPI - Abdominal Pain General Chief Complaint: Abdominal Pain Stated Complaint: Gallbladder pain Time Seen by Provider: 11/08/21 11:49 History of Present Illness HPI narrative: Patient is a 31-year-old female history of poorly controlled insulin-dependent diabetes presenting today with right upper quadrant pain. She has been ongoing for months worse today. She is recovering from a pelvic fracture she is actually supposed to start PT. she denies any nausea or vomiting. She says her glucose has been well controlled. She denies any fever or chills. She was seen and evaluated here in September for similar. At the time ultrasound did show sludge but no acute cholecystitis. Related Data Home Medications Medication Instructions Recorded Confirmed glucagon (human recombinant) 1 mg 1 mg SUBCUT DIRECTED 02/16/19 09/20/21 solution for injection (Glucagon Emergency Kit) insulin aspart U-100 100 unit/mL 10 unit SUBCUT AC 05/20/20 09/20/21 (3 mL) subcutaneous pen (Novolog Flexpen U-100 Insulin aspart) diphenhydramine HCl 50 mg capsule 50 mg PO BEDTIME PRN Sleep 09/29/20 09/20/21 Previous Rx's Medication Instructions Recorded glucose 4 gram chewable tablet 4 gram PO Q15M PRN hypoglycemia 12/12/18 #30 tabs insulin aspart U-100 100 unit/mL 1 sliding scale dose SUBCUT 04/13/21 subcutaneous solution (Novolog USEASDIRECTD #10 mL U-100 Insulin aspart) insulin glargine 100 unit/mL (3 25 unit (0.25 mL) SUBCUT BID 10 04/13/21 mL) subcutaneous pen (Lantus days #5 mL Solostar U-100 Insulin) hydromorphone 2 mg tablet 2 - 4 mg PO Q4HR PRN Pain, Severe 09/24/21 (7-10) for pelvic fracture #60 tabs bisacodyl 10 mg rectal suppository [address] DAILY PRN constipation 10/11/21 #12 ea bisacodyl 10 mg rectal suppository [address] DAILY PRN constipation 10/11/21 #12 ea hydrocodone 5 mg-acetaminophen 325 1 tab PO TID PRN pain #14 tabs 10/11/21 mg tablet magnesium citrate 150 ml PO BID PRN constipation 10/11/21 #296 mL magnesium citrate 150 ml PO BID PRN constipation 10/11/21 #296 mL fluconazole 150 mg tablet 150 mg PO Q3D 2 doses #2 tabs 10/14/21 pantoprazole 40 mg tablet,delayed 40 mg PO DAILY #30 tabs 10/14/21 release (Protonix) ondansetron 4 mg disintegrating 4 mg PO Q8H PRN nausea and 11/08/21 tablet vomiting #10 tabs Allergies Allergy/AdvReac Type Severity Reaction Status Date / Time abdalla [ABDALLA] Allergy Intermediate Hives, Verified 10/15/21 14:31 pruritus iodine [IODINE] Allergy Intermediate rash, itchy Verified 10/15/21 14:31 morphine Allergy Intermediate Difficulty Verified 10/15/21 14:31 Breathing shellfish derived Allergy Intermediate rash Verified 10/15/21 14:31 [SHELLFISH DERIVED] adhesive [ADHESIVE] Allergy Unknown tape Verified 10/15/21 14:31 latex [LATEX] Allergy Unknown Hives Verified 10/15/21 14:31 Review of Systems Review of Systems Narrative: GENERAL: Denies chills, fatigue, malaise, fever, sweats, travel HEENT: Denies sinus pain, ear pain, sore throat, difficulty swallowing, neck pain RESPIRATORY: Denies dyspnea, cough, wheezing, hemoptysis, sputum. CARDIOVASCULAR: Denies chest pain, palpitations, orthopnea, edema GASTROINTESTINAL: See HPI : Denies dysuria, frequency, incontinence, hematuria, urinary retention, flank pain. MUSCULOSKELETAL: Denies weakness, joint pain, or bony pain SKIN: No rash, no erythema, no pruritus NEUROLOGIC: Denies weakness, dizziness, headache, numbness, change in speech, confusion PSYCHIATRIC: No concerning psychosocial issues. 12 point review of systems is negative except for those stated above and HPI Patient History Medical History DKA (diabetic ketoacidoses) History of pyelonephritis Irregular menstrual cycle Migraine headache Nephrolithiasis Noncompliance w/medication treatment due to intermit use of medication Type 1 diabetes mellitus Surgical History History of ureter stent Hx of cataract surgery Hx of local excision of skin lesion Status post laser lithotripsy of ureteral calculus [place] teeth extracted Family History Father In good health Mother Cardiac disease Social History details: Engaged household members: significant other Smoking Status: Never smoker alcohol intake: never Smoking Status: Never smoker alcohol intake frequency: holidays/special occasions only Substance Use Type: does not use Exam Initial Vital Signs Initial Vital Signs: Vital Signs Pulse Rate 119 H 11/08/21 11:55 Blood Pressure 175/111 H 11/08/21 11:55 Pulse Oximetry 98 11/08/21 11:55 GENERAL: Alert tearful 31-year-old female and in no acute distress. HEENT: Head atraumatic,EOMI, pupils reactive, face symmetric, moist mucous membranes CARDIOVASCULAR: Regular rate and rhythm without murmurs, rubs or gallops. RESPIRATORY: Breath sounds equal bilaterally, no wheezes rales or rhonchi. ABDOMEN: Soft, tender right upper quadrant with guarding no rebound positive Gómez sign EXTREMITIES: Normal range of motion, no clubbing or edema. Neurovascularly intact NEUROLOGICAL: Alert and oriented x4.Normal gait and speech. SKIN: Warm, dry, no laceration, no petechiae, no rashes or lesions. Course Orders Ordered: ED Orders 11/08/21 12:23 US abdomen limited Stat 11/08/21 13:14 Complete Blood Count AUTO DIFF Stat Comprehensive Metabolic Panel Stat Ketones (Beta-Hydroxybutyrate) Stat Lactate (Lactic Acid) Stat Lipase Stat Discontinued Medications Hydromorphone HCl (Hydromorphone 1 Mg Inj) 1 mg IV NOW ONE Stop: 11/08/21 13:31 Last Admin: 11/08/21 13:58 Dose: 1 mg Documented By: MYRNA Sodium Chloride (Normal Saline 0.9%) 1,000 mls @ 150 mls/hr IV CONT BLAISE Last Infusion: 11/08/21 14:37 Dose: 0 mls/hr Documented By: Infusion: 11/08/21 14:37 Dose: 0 mls/hr Documented By: Admin: 11/08/21 12:35 Dose: 150 mls/hr Documented By: RACHAEL Ketorolac Tromethamine (Ketorolac 30 Mg/Ml Vial) 30 mg IV NOW ONE Stop: 11/08/21 12:04 Last Admin: 11/08/21 12:38 Dose: 30 mg Documented By: RACHAEL Vital Signs Vital signs: Vital Signs - 8 hr 11/08/21 11:58 11/08/21 11:55 11/08/21 11:55 Temperature 97.7 F Pulse Rate 120 H 119 H Respiratory Rate 20 Blood Pressure 175/111 H 175/111 H Pulse Oximetry 99 98 Oxygen Delivery Method Room Air 11/08/21 11:56 11/08/21 11:56 11/08/21 12:00 Temperature Pulse Rate 120 H Respiratory Rate Blood Pressure 180/110 H 180/111 H Pulse Oximetry 99 Oxygen Delivery Method Room Air 11/08/21 12:00 11/08/21 12:03 11/08/21 12:03 Temperature Pulse Rate 121 H 122 H Respiratory Rate Blood Pressure 177/111 H Pulse Oximetry 99 99 Oxygen Delivery Method 11/08/21 12:30 11/08/21 12:30 11/08/21 13:00 Temperature Pulse Rate 121 H 113 H Respiratory Rate Blood Pressure 187/117 H Pulse Oximetry 98 99 Oxygen Delivery Method 11/08/21 13:30 11/08/21 14:00 11/08/21 14:30 Temperature Pulse Rate 117 H 114 H 112 H Respiratory Rate Blood Pressure Pulse Oximetry 99 99 96 Oxygen Delivery Method 11/08/21 14:34 11/08/21 14:34 Temperature Pulse Rate 112 H Respiratory Rate Blood Pressure 180/114 H Pulse Oximetry 98 Oxygen Delivery Method Room Air MDM - Abdominal Pain Lab Data Result diagrams: 11/08/21 13:14 11/08/21 13:14 Labs: Lab Results 11/08/21 11/08/21 11/08/21 Range/Units 13:14 13:14 13:14 WBC 5.3 (4.5-11.0) X10^3/uL RBC 4.58 (4.0-5.2) X10^6/uL Hgb 12.9 (12.0-16.0) g/dL Hct 39.4 (36-46) % MCV 86.0 (80-100) fL MCH 28.2 (26-34) PG MCHC 32.8 (30-36) % RDW 17.5 H (11.6-14.8) % Plt Count 380 (150-400) X10^3/uL Neut % (Auto) 68.3 (50-75) % Lymph % (Auto) 22.1 L (25-40) % [place] % (Auto) 7.0 (3-14) % Eos % (Auto) 1.8 L (2-4) % Baso % (Auto) 0.8 (0-2) % Neut # (Auto) 3600 (7486-2922) /uL Lymph # (Auto) 1200 (8605-1786) /uL [place] # (Auto) 400 (0-900) /uL Eos # (Auto) 100 (0-450) /uL Baso # (Auto) 0 (0-100) /uL Sodium 134 L (137-145) mmol/L Potassium 4.6 (3.4-5.1) mmol/L Chloride 101 (98-107) mmol/L Carbon Dioxide 31 (22-32) mmol/L BUN 17 (7-17) mg/dL Creatinine 0.58 (0.52-1.04) mg/dL Estimated GFR > 60 (>60) mL/min BUN/Creatinine Ratio 29.3 H (6-22) Glucose 340 H (70-100) mg/dL Lactate 1.2 (0.7-2.1) mmol/L Calcium 8.4 (8.4-10.2) mg/dL Total Bilirubin 0.3 (0.2-1.3) mg/dL AST 18 (14-36) IU/L ALT 12 (<35) IU/L Alkaline Phosphatase 133 H (38-126) U/L Total Protein 6.1 L (6.3-8.2) g/dL Albumin 3.3 L (3.5-5.0) g/dL Globulin 2.8 (1.7-4.1) g/dL Albumin/Globulin Ratio 1.2 (1.0-2.8) Lipase 64 (23-300) U/L Ketones (<0.27) mmol/L // Range/Units 13:14 WBC (4.5-11.0) X10^3/uL RBC (4.0-5.2) X10^6/uL Hgb (12.0-16.0) g/dL Hct (36-46) % MCV (80-100) fL MCH (26-34) PG MCHC (30-36) % RDW (11.6-14.8) % Plt Count (150-400) X10^3/uL Neut % (Auto) (50-75) % Lymph % (Auto) (25-40) % [place] % (Auto) (3-14) % Eos % (Auto) (2-4) % Baso % (Auto) (0-2) % Neut # (Auto) (7730-3487) /uL Lymph # (Auto) (0787-2091) /uL [place] # (Auto) (0-900) /uL Eos # (Auto) (0-450) /uL Baso # (Auto) (0-100) /uL Sodium (137-145) mmol/L Potassium (3.4-5.1) mmol/L Chloride (98-107) mmol/L Carbon Dioxide (22-32) mmol/L BUN (7-17) mg/dL Creatinine (0.52-1.04) mg/dL Estimated GFR (>60) mL/min BUN/Creatinine Ratio (6-22) Glucose (70-100) mg/dL Lactate (0.7-2.1) mmol/L Calcium (8.4-10.2) mg/dL Total Bilirubin (0.2-1.3) mg/dL AST (14-36) IU/L ALT (<35) IU/L Alkaline Phosphatase (38-126) U/L Total Protein (6.3-8.2) g/dL Albumin (3.5-5.0) g/dL Globulin (1.7-4.1) g/dL Albumin/Globulin Ratio (1.0-2.8) Lipase (23-300) U/L Ketones 0.18 (<0.27) mmol/L Imaging Data US - abdomen: Radiologist's Impression: nt: JalilLisaisrael Bustamante MR#: [id number] : 1990 Acct:[id number] Age/Sex: 31 / F Date of Service: 11/08/21 Loc: ED Accession Number: [id number] ?? Procedure: US abdomen limited Ordering Provider: Megan Luevano D.O. PROCEDURE: US ABDOMEN LIMITED ? INDICATIONS:? pain ruq ? TECHNIQUE:? Real-time focused scanning was performed of the abdomen, with image documentation.? ? COMPARISON:[facility], CT, CT ABDOMEN PELVIS W CON, 10/14/2021, 0:00.? Located Within [facility], US, US ABDOMEN LIMITED, 10/15/2021, 20:53. ? FINDINGS:? Echogenic sludge ball at the gallbladder fundus is redemonstrated.? There also appear to be a few discrete mobile shadowing gallstones.? No gallbladder wall thickening. ?No pericholecystic fluid.? Senior Master Scheduler reports a positive sonographic Gómez's sign.? Liver is unremarkable.? No intrahepatic or extrahepatic biliary ductal dilatation.? Pancreas obscured by bowel gas. ? IMPRESSION:? Cholelithiasis and gallbladder sludge.? Positive sonographic Gómez's sign.? No wall thickening or pericholecystic fluid to indicate cholecystitis. ? ? Dictated by: Willard Garcia M.D. on 11/08/2021 at 13:33 ?? [facility] Narrative Medical decision making narrative: Patient does not have any signs of DKA today. She is having severe right upper quadrant pain. Ultrasound does show sludge and cholelithiasis but no sign of acute cholecystitis. Blood work is overall reassuring no elevated bilirubin liver enzymes or leukocytosis. 1400 Dr. Jones updated on patient's symptoms and test results. At this time no need for emergent surgery but encourage is outpatient follow-up. I have discussed this with patient and her mom. They will call day. Discharge Plan Departure Patient Disposition: Home Clinical Impression: Cholelithiasis Instructions: DI for Gallstones Activity Restrictions/Additional Instructions: *You have been diagnosed with gallstones *What to do: At this time you will need to have her gallbladder removed. However it is not emergent today. Her blood work today is overall reassuring. You will need to talk with surgery and happened scheduled. *Continue to take medications as directed Continue your pain medication as previously prescribed Zofran 4 mg every 8 hours if needed for nausea vomiting *Follow up with your primary care provider in 2-3 days or call [phone] Call surgery today to schedule follow-up appointment. You may need a referral from your PCP. *Return to ER if you should have fever, pain, or any new, worsening or concerning symptoms Prescriptions: New ondansetron 4 mg tablet,disintegrating 4 mg PO Q8H PRN (Reason: nausea and vomiting) Qty: 10 0RF No Action glucose 4 gram tablet,chewable 4 gram PO Q15M PRN (Reason: hypoglycemia) Qty: 30 0RF Rx Instructions: until response Glucagon Emergency Kit (human) 1 mg recon soln 1 mg subcut DIRECTED hydromorphone 2 mg Tablet 2 - 4 mg PO Q4HR MDD 8 PRN (Reason: Pain, Severe (7-10) for pelvic fracture) Qty: 60 0RF bisacodyl 10 mg suppository [address] DAILY PRN (Reason: constipation) Qty: 12 0RF magnesium citrate Solution 150 ml PO BID PRN (Reason: constipation) Qty: 296 0RF hydrocodone-acetaminophen 5-325 mg tablet 1 tab PO TID PRN (Reason: pain) Qty: 14 0RF bisacodyl 10 mg suppository [address] DAILY PRN (Reason: constipation) Qty: 12 0RF magnesium citrate Solution 150 ml PO BID PRN (Reason: constipation) Qty: 296 0RF fluconazole 150 mg tablet 150 mg PO Q3D Qty: 2 0RF Rx Instructions: may repeat second dose 72 hrs after first dose if symptoms persist pantoprazole [Protonix] 40 mg tablet,delayed release (DR/EC) 40 mg PO DAILY Qty: 30 0RF insulin aspart U-100 [Novolog Flexpen U-100 Insulin] 100 unit/mL (3 mL) insulin pen 10 unit SUBCUT AC Rx Instructions: Pt states she uses 10 units plus a sliding scale based on her blood sugar. She is vague in response to exact # over 10 units. diphenhydramine HCl 50 mg Capsule 50 mg PO BEDTIME PRN (Reason: Sleep) Rx Instructions: for itching and sleep Lantus Solostar U-100 Insulin 100 unit/mL (3 mL) Insulin Pen 25 unit SUBCUT BID 10 Days Qty: 5 2RF insulin aspart U-100 [Novolog U-100 Insulin aspart] 100 unit/mL solution 1 sliding scale dose SUBCUT USEASDIRECTD Qty: 10 2RF Rx Instructions: USE SLIDING SCALE PLS Referrals: [facility] [Provider Group] Maria Ines Limon DO [Primary Care Provider] - Visit Report Forms: Patient Portal/API
--- NOTE | 2021-11-08 12:23 | DI.US.S_ITS ---
PROCEDURE: US ABDOMEN LIMITED INDICATIONS: pain ruq TECHNIQUE: Real-time focused scanning was performed of the abdomen, with image documentation. COMPARISON: [facility], CT, CT ABDOMEN PELVIS W CON, 10/14/2021, 0:00. [facility], US, US ABDOMEN LIMITED, 10/15/2021, 20:53. FINDINGS: Echogenic sludge ball at the gallbladder fundus is redemonstrated. There also appear to be a few discrete mobile shadowing gallstones. No gallbladder wall thickening. No pericholecystic fluid. Assembly Line Driver reports a positive sonographic Gómez's sign. Liver is unremarkable. No intrahepatic or extrahepatic biliary ductal dilatation. Pancreas obscured by bowel gas. IMPRESSION: Cholelithiasis and gallbladder sludge. Positive sonographic Gmóez's sign. No wall thickening or pericholecystic fluid to indicate cholecystitis. Dictated by: Willard Garcia M.D. on 11/08/2021 at 13:33 Approved by: Willard Garcia M.D. on 11/08/2021 at 13:41
[2021-11-08] MEDS: SODIUM CHLORIDE 0.9% 1,000 ML 150 ML IV (12:35)
[2021-11-08] MEDS: KETOROLAC 30 MG/ML VIAL IV (12:38)
[2021-11-08 13:35] LABS: Add Manual Diff / Slide Review NO; Basophils Absolute Auto 0 /uL (0-100); Basophils Percent Auto 0.8 % (0-2); Eosinophils Absolute Auto 100 /uL (0-450); Eosinophils Percent Auto 1.8 % (2-4); Hematocrit 39.4 % (36-46); Hemoglobin 12.9 g/dL (12.0-16.0); Lymphocytes Absolute Auto 1200 /uL (1100-4500); Lymphocytes Percent Auto 22.1 % (25-40); Mean Corpuscular HGB Conc 32.8 % (30-36); Mean Corpuscular Hemoglobin 28.2 PG (26-34); Monocytes Absolute Auto 400 /uL (0-900); Neutrophils Absolute Auto 3600 /uL (1500-7000); Neutrophils Percent Auto 68.3 % (50-75); Platelet Count 380 X10^3/uL (150-400); Red Blood Cell Count 4.58 X10^6/uL (4.0-5.2); Red Cell Distribution Width 17.5 % (11.6-14.8); White Blood Cell Count 5.3 X10^3/uL (4.5-11.0)
[2021-11-08 13:39] LABS: Lactate (Lactic Acid) 1.2 mmol/L (0.7-2.1)
[2021-11-08 13:40] LABS: Alanine Aminotransferase 12 IU/L (<35); Albumin 3.3 g/dL (3.5-5.0); Albumin Globulin Ratio 1.2 (1.0-2.8); Alkaline Phosphatase 133 U/L (38-126); Aspartate Aminotransferase 18 IU/L (14-36); BUN Creatinine Ratio 29.3 (6-22); Bilirubin Total 0.3 mg/dL (0.2-1.3); Blood Urea Nitrogen 17 mg/dL (7-17); Calcium 8.4 mg/dL (8.4-10.2); Carbon Dioxide 31 mmol/L (22-32); Chloride 101 mmol/L (98-107); Estimated Glomerular Filt Rate > 60 mL/min (>60); Globulin 2.8 g/dL (1.7-4.1); Glucose 340 mg/dL (70-100); HEMOLYSIS < 15 (0-50); Lipase 64 U/L (23-300); Potassium 4.6 mmol/L (3.4-5.1); Sodium 134 mmol/L (137-145); Total Protein 6.1 g/dL (6.3-8.2)
[2021-11-08 13:41] LABS: Ketones (Beta-Hydroxybutyrate) 0.18 mmol/L (<0.27)
[2021-11-08] MEDS: HYDROMORPHONE 1 MG INJ IV (13:58)
== END 2021-11-08 14:54 | disposition home or self-care (01) ==
PROVIDERS: Emergency Provider Emergency Medicine; PCP Student in an Organized Health Care Education/Training Program
DX: K80.20 Calculus of gallbladder without cholecystitis without obstruction (principal)
CPT/HCPCS: 36415; 76705; 80053; 82009; 83605; 83690; 85025; 96361; 96374; 96375; 99283; 99284; J1170; J1885

== ENCOUNTER 2021-11-13 10:52 | Observation (INO) | payer OTHER, MEDICAID, SELFPAY ==
[2021-11-13] VITALS (12 sets, daily range): BP systolic 145–203; BP diastolic 91–128; PULSE 111–121; RESP 11–21; TEMP 36.4–36.7; O2SAT 92–100; BMI 18.8
--- NOTE | 2021-11-13 10:51 | DI.US.S_ITS ---
PROCEDURE: US ABDOMEN LIMITED INDICATIONS: RUQ PAIN TECHNIQUE: Real-time scanning was performed of the abdominal and retroperitoneal organs, with image documentation. COMPARISON: [facility], CT, CT ABDOMEN PELVIS W CON, 10/14/2021, 0:00. [facility], US, US ABDOMEN LIMITED, 10/15/2021, 20:53. [facility], US, US ABDOMEN LIMITED, 11/08/2021, 12:54. FINDINGS: Liver: Liver is normal in size and homogeneous in echotexture. Gallbladder: Redemonstration of a 2.3 x 0.9 x 1.4 cm focus within the gallbladder fundus without internal vascularity. There is no associated gallbladder wall thickening. A few adjacent echogenic gallstones are present. No pericholecystic fluid. There is a positive sonographic Gómez sign. Biliary ducts: Intrahepatic bile ducts are non-dilated. Extrahepatic bile duct caliber measures 5 mm. Normal is 6-7 mm or less in diameter, or 10 mm or less post-cholecystectomy. Pancreas: There is mild prominence of the main pancreatic duct at the level of the pancreatic head measuring approximately 3.6 mm in diameter. The visualized pancreas is otherwise unremarkable. Miscellaneous: No free abdominal fluid. IMPRESSION: Persistent 2.3 cm irregular, adherent sludge ball versus adherent gallstone at the gallbladder fundus without wall thickening or pericholecystic fluid. Possible soft tissue mass not excluded. Positive sonographic Gómez sign without other findings to suggest acute cholecystitis. A few tiny nonobstructive, nonshadowing gallstones noted. Dictated by: Marino Cooper M.D. on 11/13/2021 at 11:55 Approved by: Marino Cooper M.D. on 11/13/2021 at 12:04
--- NOTE | 2021-11-13 10:59 | ED.ABDPAIN ---
HPI - Abdominal Pain General Chief Complaint: Abdominal Pain Stated Complaint: Gen Weak, +gallstones Time Seen by Provider: 11/13/21 10:58 History of Present Illness HPI narrative: Patient is a 31-year-old female frail insulin-dependent diabetic well known to myself in this facility he also has known cholelithiasis and sludge presents for 2nd visit this week in 3rd visit since October 13 for the same. Seen and evaluated here 5 days ago as per the same blood work was reassuring thought not to have acute cholecystitis discussion with surgery recommended outpatient follow-up at that time. However patient says she has really not gotten any better as she continues to have pain in nausea no fevers. Glucose has remained stable on 1-200 which is abnormal for her. Today she arrived by ambulance which is also abnormal she received Zofran and fentanyl. Related Data Home Medications Medication Instructions Recorded Confirmed glucagon (human recombinant) 1 mg 1 mg SUBCUT DIRECTED 02/16/19 11/13/21 solution for injection (Glucagon Emergency Kit) diphenhydramine HCl 50 mg capsule 50 mg PO BEDTIME PRN Sleep 09/29/20 11/13/21 hydrocodone 5 mg-acetaminophen 325 1 tab PO TID pain 11/13/21 11/13/21 mg tablet insulin aspart U-100 100 unit/mL sliding scale dose SUBCUT TID 11/13/21 (3 mL) subcutaneous pen (Novolog Flexpen U-100 Insulin aspart) insulin degludec 200 unit/mL (3 13 ea SUBCUT BID 11/13/21 11/13/21 mL) subcutaneous pen (Tresiba FlexTouch U-200 insulin) methocarbamol 500 mg tablet 1 tab PO TID 11/13/21 11/13/21 pantoprazole 40 mg tablet,delayed 40 mg PO BEDTIME 11/13/21 11/13/21 release sennosides 8.6 mg tablet (senna) 8.6 mg PO DAILY 11/13/21 11/13/21 Previous Rx's Medication Instructions Recorded glucose 4 gram chewable tablet 4 gram PO Q15M PRN hypoglycemia 12/12/18 #30 tabs ondansetron 4 mg disintegrating 4 mg PO Q8H PRN nausea and 11/08/21 tablet vomiting #10 tabs Allergies Allergy/AdvReac Type Severity Reaction Status Date / Time abdalla [ABDALLA] Allergy Intermediate Hives, Verified 10/15/21 14:31 pruritus iodine [IODINE] Allergy Intermediate rash, itchy Verified 10/15/21 14:31 morphine Allergy Intermediate Difficulty Verified 10/15/21 14:31 Breathing shellfish derived Allergy Intermediate rash Verified 10/15/21 14:31 [SHELLFISH DERIVED] adhesive [ADHESIVE] Allergy Unknown tape Verified 10/15/21 14:31 latex [LATEX] Allergy Unknown Hives Verified 10/15/21 14:31 Review of Systems Review of Systems Narrative: GENERAL: Denies chills, fatigue, malaise, fever, sweats, travel HEENT: Denies sinus pain, ear pain, sore throat, difficulty swallowing, neck pain RESPIRATORY: Denies dyspnea, cough, wheezing, hemoptysis, sputum. CARDIOVASCULAR: Denies chest pain, palpitations, orthopnea, edema GASTROINTESTINAL: See HPI : Denies dysuria, frequency, incontinence, hematuria, urinary retention, flank pain. MUSCULOSKELETAL: Denies weakness, joint pain, or bony pain SKIN: No rash, no erythema, no pruritus NEUROLOGIC: Denies weakness, dizziness, headache, numbness, change in speech, confusion PSYCHIATRIC: No concerning psychosocial issues. 12 point review of systems is negative except for those stated above and HPI Patient History Medical History DKA (diabetic ketoacidoses) History of pyelonephritis Irregular menstrual cycle Migraine headache Nephrolithiasis Noncompliance w/medication treatment due to intermit use of medication Type 1 diabetes mellitus Surgical History History of ureter stent Hx of cataract surgery Hx of local excision of skin lesion Status post laser lithotripsy of ureteral calculus [place] teeth extracted Family History Father In good health Mother Cardiac disease Social History details: Engaged household members: significant other Smoking Status: Never smoker alcohol intake: never Smoking Status: Never smoker alcohol intake frequency: holidays/special occasions only Substance Use Type: does not use Exam Initial Vital Signs Initial Vital Signs: Vital Signs Pulse Rate 112 H 11/13/21 10:56 Respiratory Rate 18 11/13/21 10:56 Pulse Oximetry 99 11/13/21 10:56 GENERAL: Alert tearful 31-year-old female HEENT: Head atraumatic,EOMI, pupils reactive, face symmetric, moist mucous membranes CARDIOVASCULAR: Regular rate and rhythm without murmurs, rubs or gallops. RESPIRATORY: Breath sounds equal bilaterally, no wheezes rales or rhonchi. ABDOMEN: Soft, tender right upper quadrant, no distention EXTREMITIES: Normal range of motion, no clubbing or edema. Neurovascularly intact NEUROLOGICAL: Alert and oriented x4.Normal gait and speech. SKIN: Warm, dry, no laceration, no petechiae, no rashes or lesions. Course Orders Ordered: ED Orders 11/13/21 11:38 COVID19 -Nasal RAPID/Pre-Proc Stat 11/13/21 11:55 Urine Microscopic Stat 11/13/21 13:25 CT chest abd pel w con Stat CT head/brain wo con Stat 11/13/21 13:50 EKG-12 Lead Stat 11/13/21 15:11 CMP [Comprehensive Metabolic Panel] Stat Troponin & CK Cardiac Panel Stat 11/13/21 15:50 CBC Auto Diff [Complete Blood Count AUTO DIFF] Stat Acetaminophen (Acetaminophen 325 Mg Tablet) 975 mg PO Q8H PRN PRN Reason: Pain, Mild (1-3) Lactated Ringer's (Lactated Ringers) 1,000 mls @ 100 mls/hr IV CONT BLAISE Last Admin: 11/13/21 15:07 Dose: 100 mls/hr Documented By: DAMIÁN Dextrose (D10w) 250 mls @ 999 mls/hr IV PRN PRN PRN Reason: Hypoglycemia Insulin Glargine (Insulin Glargine 100 Unit/Ml 3ml Pen) 8 unit SUBCUT BID BLAISE Last Admin: 11/13/21 20:12 Dose: 8 unit Documented By: JAUN Co-signed By: Insulin Human Lispro (Insulin Lispro 100 Unit/Ml 3ml Vial) 0 unit SUBCUT ACHS BLAISE; Protocol Last Admin: 11/13/21 20:09 Dose: 5 unit Documented By: JAUN Co-signed By: Admin: 11/13/21 17:11 Dose: 1 unit Documented By: DAMIÁN Co-signed By: MACKENZIE Ketorolac Tromethamine (Ketorolac 30 Mg/Ml Vial) 30 mg IV Q8H PRN PRN Reason: Pain, Moderate (4-6) Stop: 11/18/21 16:29 Last Admin: 11/13/21 17:16 Dose: 30 mg Documented By: DAMIÁN Naloxone HCl (Naloxone 0.4 Mg/Ml Vial) 0.1 mg IV Q2MIN PRN PRN Reason: Opiate Reversal Ondansetron HCl (Ondansetron 4 Mg/2 Ml Inj) 4 mg IV Q8HR PRN PRN Reason: Nausea And Vomiting Pantoprazole Sodium (Pantoprazole Dr 40 Mg Tablet) 40 mg PO 2100 BLAISE Last Admin: 11/13/21 20:15 Dose: 40 mg Documented By: JAUN Tramadol HCl (Tramadol 50 Mg Tablet) 50 mg PO Q4H PRN PRN Reason: Pain, Moderate (4-6) Last Admin: 11/13/21 20:07 Dose: 50 mg Documented By: JAUN Discontinued Medications Dextrose (Dextrose 50 % In Water 25 Gm/50 Ml Syringe) 25 gm IV PRN PRN PRN Reason: Hypoglycemia Diphenhydramine HCl (Diphenhydramine 50 Mg/Ml Vial) 25 mg IV NOW ONE Stop: 11/13/21 13:01 Last Admin: 11/13/21 13:04 Dose: 25 mg Documented By: LIZBETH Hydromorphone HCl (Hydromorphone 1 Mg Inj) 1 mg IV NOW ONE Stop: 11/13/21 10:52 Last Admin: 11/13/21 11:01 Dose: 1 mg Documented By: LAYNE Hydromorphone HCl (Hydromorphone 1 Mg Inj) 1 mg IV NOW ONE Stop: 11/13/21 12:24 Last Admin: 11/13/21 12:26 Dose: 1 mg Documented By: LAYNE Sodium Chloride (Normal Saline 0.9%) 1,000 mls @ 1,000 mls/hr IV BOLUS ONE Stop: 11/13/21 11:50 Last Infusion: 11/13/21 12:11 Dose: 0 mls/hr Documented By: Admin: 11/13/21 11:01 Dose: 1,000 mls/hr Documented By: LAYNE Methylprednisolone (Methylprednisolone 125 Mg/2 Ml Vial) 125 mg IV NOW ONE Stop: 11/13/21 13:01 Last Admin: 11/13/21 13:04 Dose: 125 mg Documented By: LIZBETH Naloxone HCl (Naloxone 0.4 Mg/Ml Vial) 0.4 mg IV NOW ONE Stop: 11/13/21 13:40 Last Admin: 11/13/21 12:53 Dose: 0.4 mg Documented By: AMU Vital Signs Vital signs: Vital Signs - 8 hr 11/13/21 13:30 11/13/21 13:34 11/13/21 14:00 Temperature Pulse Rate 120 H 121 H 121 H Respiratory Rate 11 L 16 15 Blood Pressure 197/121 H 189/121 H Pulse Oximetry 99 99 99 Oxygen Delivery Method Room Air Room Air Oxygen Flow Rate 11/13/21 14:30 11/13/21 14:30 Temperature 98.1 F 98.1 F Pulse Rate 120 H 120 H Respiratory Rate 21 20 Blood Pressure 161/110 H 161/110 H Pulse Oximetry 99 99 Oxygen Delivery Method Oxygen Flow Rate 0 0 MDM - Abdominal Pain Lab Data Result diagrams: 11/13/21 15:50 11/13/21 15:11 Labs: Lab Results 11/13/21 11/13/21 11/13/21 Range/Units 10:45 10:45 10:45 WBC 4.9 (4.5-11.0) X10^3/uL RBC 4.82 (4.0-5.2) X10^6/uL Hgb 13.7 (12.0-16.0) g/dL Hct 41.0 (36-46) % MCV 85.1 (80-100) fL MCH 28.4 (26-34) PG MCHC 33.4 (30-36) % RDW 17.1 H (11.6-14.8) % Plt Count 454 H (150-400) X10^3/uL Neut % (Auto) 59.5 (50-75) % Lymph % (Auto) 29.5 (25-40) % [place] % (Auto) 7.8 (3-14) % Eos % (Auto) 1.8 L (2-4) % Baso % (Auto) 1.4 (0-2) % Neut # (Auto) 2900 (3614-5553) /uL Lymph # (Auto) 1500 (2197-6402) /uL [place] # (Auto) 400 (0-900) /uL Eos # (Auto) 100 (0-450) /uL Baso # (Auto) 100 (0-100) /uL Sodium 133 L (137-145) mmol/L Potassium 4.2 (3.4-5.1) mmol/L Chloride 98 (98-107) mmol/L Carbon Dioxide 29 (22-32) mmol/L BUN 12 (7-17) mg/dL Creatinine 0.46 L (0.52-1.04) mg/dL Estimated GFR > 60 (>60) mL/min BUN/Creatinine Ratio 26.1 H (6-22) Glucose 138 H D (70-100) mg/dL Lactate 0.8 (0.7-2.1) mmol/L Calcium 8.8 (8.4-10.2) mg/dL Total Bilirubin 0.4 (0.2-1.3) mg/dL AST 24 (14-36) IU/L ALT 16 (<35) IU/L Alkaline Phosphatase 86 (38-126) U/L Total Protein 6.6 (6.3-8.2) g/dL Albumin 3.5 (3.5-5.0) g/dL Globulin 3.1 (1.7-4.1) g/dL Albumin/Globulin Ratio 1.1 (1.0-2.8) Lipase (23-300) U/L Procalcitonin 0.05 (<0.5) ng/mL Urine RBC (0-5/HPF) Urine WBC (0-5/HPF) Ur Squamous Epith Cells (0-5/HPF) Urine Bacteria (None) Ur Culture Indicated? Ketones 0.34 H (<0.27) mmol/L SARS-CoV-2 (PCR) (Negative) 11/13/21 11/13/21 11/13/21 Range/Units 10:45 11:38 11:55 WBC (4.5-11.0) X10^3/uL RBC (4.0-5.2) X10^6/uL Hgb (12.0-16.0) g/dL Hct (36-46) % MCV (80-100) fL MCH (26-34) PG MCHC (30-36) % RDW (11.6-14.8) % Plt Count (150-400) X10^3/uL Neut % (Auto) (50-75) % Lymph % (Auto) (25-40) % [place] % (Auto) (3-14) % Eos % (Auto) (2-4) % Baso % (Auto) (0-2) % Neut # (Auto) (8474-5186) /uL Lymph # (Auto) (4221-9182) /uL [place] # (Auto) (0-900) /uL Eos # (Auto) (0-450) /uL Baso # (Auto) (0-100) /uL Sodium (137-145) mmol/L Potassium (3.4-5.1) mmol/L Chloride (98-107) mmol/L Carbon Dioxide (22-32) mmol/L BUN (7-17) mg/dL Creatinine (0.52-1.04) mg/dL Estimated GFR (>60) mL/min BUN/Creatinine Ratio (6-22) Glucose (70-100) mg/dL Lactate (0.7-2.1) mmol/L Calcium (8.4-10.2) mg/dL Total Bilirubin (0.2-1.3) mg/dL AST (14-36) IU/L ALT (<35) IU/L Alkaline Phosphatase (38-126) U/L Total Protein (6.3-8.2) g/dL Albumin (3.5-5.0) g/dL Globulin (1.7-4.1) g/dL Albumin/Globulin Ratio (1.0-2.8) Lipase 33 (23-300) U/L Procalcitonin (<0.5) ng/mL Urine RBC None seen (0-5/HPF) Urine WBC None seen (0-5/HPF) Ur Squamous Epith Cells None seen (0-5/HPF) Urine Bacteria None seen (None) Ur Culture Indicated? Cult not indicated Ketones (<0.27) mmol/L SARS-CoV-2 (PCR) Negative (Negative) Point of care testing: Point of Care Testing Test Results Negative Urine Dip Bedside Urine Glucose 250 mg/dl Bedside Urine Bilirubin - Negative Bedside Urine Ketone - Negative Urine Specific [place] 1.015 Bedside Urine Occult Blood + Bedside Urine pH 7.0 Bedside Urine Protein +++ 300 Bedside Urine Urobilinogen - Negative Bedside Urine Nitrite - Negative Bedside Urine Leukocytes - Negative Esterase Imaging Data US - abdomen: Radiologist's Impression: Signed Patient: Sarabjit Jimenes MR#: [id number] : 1990 Acct:[id number] Age/Sex: 31 / F Date of Service: 11/13/21 Loc: ED Accession Number: [id number] ?? Procedure: US abdomen limited Ordering Provider: Megan Luevano D.O. PROCEDURE:? US ABDOMEN LIMITED ? INDICATIONS:? RUQ PAIN ? TECHNIQUE:? Real-time scanning was performed of the abdominal and retroperitoneal organs, with image documentation.? ? COMPARISON:? [facility], CT, CT ABDOMEN PELVIS W CON, 10/14/2021, 0:00.? [facility], US, US ABDOMEN LIMITED, 10/15/2021, 20:53.? [facility], US, US ABDOMEN LIMITED, 11/08/2021, 12:54. ? FINDINGS:? ? Liver:? Liver is normal in size and homogeneous in echotexture.? ? Gallbladder:? Redemonstration of a 2.3 x 0.9 x 1.4 cm focus within the gallbladder fundus without internal vascularity.? There is no associated gallbladder wall thickening.? A few adjacent echogenic gallstones are present.? No pericholecystic fluid.? There is a positive sonographic Gómez sign.? ? Biliary ducts:? Intrahepatic bile ducts are non-dilated.? Extrahepatic bile duct caliber measures 5 mm.? Normal is 6-7 mm or less in diameter, or 10 mm or less post-cholecystectomy.? ? Pancreas:? There is mild prominence of the main pancreatic duct at the level of the pancreatic head measuring approximately 3.6 mm in diameter.? The visualized pancreas? is otherwise unremarkable.? ? Miscellaneous:? No free abdominal fluid.? ? ? IMPRESSION:? ? ?Persistent 2.3 cm irregular, adherent sludge ball versus adherent gallstone at the gallbladder fundus without wall thickening or pericholecystic fluid.? Possible soft tissue mass not excluded.? Positive sonographic Gómez sign without other findings to suggest acute cholecystitis.? A few tiny nonobstructive, nonshadowing gallstones noted. ? ? ? Dictated by: Marino Cooper M.D. on 11/13/2021 at 11:55 ? ? CT scan - abdomen/pelvis: Radiologist's Impression: Signed Patient: Sarabjit Jimenes MR#: [id number] : 1990 Acct:[id number] Age/Sex: 31 / F Date of Service: 11/13/21 Loc: ED Accession Number: [id number] ?? Procedure: CT chest abd pel w con Ordering Provider: Megan Luevano D.O. PROCEDURE:? CT CHEST ABD PEL W CON ? INDICATIONS:? post cpr hypoxia now awake ? TECHNIQUE:? After the administration of oral and intravenous contrast, axial sections acquired from the supraclavicular neck to the pubic symphysis.? Coronal and sagittal reformats were performed.? For radiation dose reduction, the following was used:? automated exposure control, adjustment of mA and/or kV according to patient size.? ? COMPARISON:? [facility], CT, CT ABDOMEN PELVIS W CON, 10/14/2021, 0:00.? [facility], CT, CT HEAD/BRAIN WO CON, 11/13/2021, 13:06.? [facility], CT, CT CHEST ABD PEL W CON, 02/28/2019, 15:03. ? FINDINGS:? Image quality:? Excellent.? ? CHEST: Lower Neck: No enlarged lymph nodes.? Thyroid: Within normal limits. Axillae: No enlarged lymph nodes. Chest Wall:? Unremarkable.? Displaced rib fractures are detected. ? Lungs and Airways: No consolidation or suspicious nodules. Pleura: No pneumothorax or pleural effusions.? ? Heart: Heart size is normal.? No pericardial effusion. Thoracic Vessels: The aorta and pulmonary arteries demonstrate normal size.? Mediastinum and Caron: No enlarged lymph nodes.? Esophagus: No wall thickening. No hiatal hernia. ? ? ABDOMEN: Liver:? Unremarkable.? ? Gallbladder:? Unremarkable.? ? Biliary ducts:? Unremarkable.? ? Pancreas:? Unremarkable.? ? Spleen:? Unremarkable.? ? Incidental note is made of an accessory splenule along the inferior aspect of the primary spleen. Adrenal Glands:? Unremarkable.? ? Kidneys and Ureters:? The previously seen left lateral renal lesion is no longer seen.? Within the right kidney, several levels cortical scarring can be seen.? The kidneys demonstrate normal size and enhance symmetrically.? Mild bilateral hydronephrosis is seen. ? Stomach and Bowel:? Stomach, small bowel loops, and colon are unremarkable.? Peritoneum:? No abnormal intraperitoneal fluid.? No free air.? ? Ventral Wall: ? No hernia.? Mild generalized body wall edema can be seen. Abdominal Nodes:? No retroperitoneal or mesenteric adenopathy by size criteria.? Vessels:? Aorta and inferior vena cava are normal in size.? ? PELVIS: Pelvic Organs:? Unremarkable.? ? The uterus appears normal for age.? No adnexal masses are seen.? Bladder:? The bladder is prominently enlarged, seen nearly to the level of the umbilicus, measuring 18 cm craniocaudal. Pelvic Nodes: No enlarged lymph nodes.? Miscellaneous: No inguinal hernias are seen. ? ? ? Bones:? Unremarkable.? ? There are subacute appearing, healing fractures seen involving the right pubis and the right inferior pubic ramus.? A subacute appearing fracture is also seen involving the right sacral ala, with a degree of healing fractures. ? ? IMPRESSION:? No displaced rib fractures are detected. ? Prominently enlarged urinary bladder.? Please correlate with urinary retention. ? Mild bilateral hydronephrosis is seen. ? The previously seen left renal lesion is no longer seen. ? Mild generalized body wall edema. ? ? Incidental note is made of: Areas of right kidney scarring are seen Accessory splenule Subacute appearing, healing right pelvic fractures ? Dictated by: Remi Polanco M.D. on 11/13/2021 at 12:31 CT scan - head: Radiologist's Impression: [facility] [place] [id number] CT Scan Report Signed Patient: Sarabjit Jimenes MR#: [id number] : 1990 Acct:[id number] Age/Sex: 31 / F Date of Service: 11/13/21 Loc: ED Accession Number: [id number] ?? Procedure: CT head/brain wo con Ordering Provider: Megan Luevano D.O. PROCEDURE:? CT HEAD/BRAIN WO CON ? INDICATIONS:? post cpr blurry vision ? TECHNIQUE:? Noncontrast 4.5 mm thick angled axial sections acquired from the foramen magnum to the vertex, with coronal and sagittal reformats.? For radiation dose reduction, the following was used:? automated exposure control, adjustment of mA and/or kV according to patient size.? ? COMPARISON:? [facility], CT, HEAD WITHOUT CONTRAST, 01/27/2017, 2:30.? [facility], CT, CT CHEST ABD PEL W CON, 11/13/2021, 13:06. ? FINDINGS:? Image quality:? This examination is limited by involuntary motion artifact.? ? CSF spaces:? Basal cisterns are patent.? No extra-axial fluid collections.? Ventricles are normal in size and shape.? ? Brain:? No midline shift.? No intracranial masses or hemorrhage.? Toure-white matter interface is normal.? ? Skull and face:? Calvarium and visualized facial bones are intact, without suspicious lesions.? ? Sinuses:? Visualized sinuses and mastoids are clear.? IMPRESSION:? Limited noncontrast CT study demonstrating no acute intracranial hemorrhage or other acute intracranial abnormality. ? If there is strong clinical suspicion for an acute stroke, please consider a brain MRI for further evaluation, as it is more sensitive (assuming that there is no contraindication to MRI). ? ? Dictated by: Remi Polanco M.D. on 11/13/2021 at 12:29 ? ? ECG Data Interpretation: Normal sinus rhythm rate 121 NV interval 112 QRS [address] changes or T-wave inversions MDM Narrative Medical decision making narrative: Patient has known cholelithiasis, persistent ongoing pain with repeat emergency department visits. No leukocytosis elevated bilirubin or liver enzymes today. Continues to have pain. She is given dilaudid. Ultrasound again does not show any pericholecystic fluid or thickening in the wall. Discussion with Dr. Primo bailon who agrees with surgery and does agree with admission to medicine service Patient had became unresponsive pulseless and CPR was started. 90 seconds of CPR started with bagging, she started waking up saying ouch. Epinephrine was never given. She was given Narcan, but after she started waking up. Immediately when she woke up she said that she could not see however her vision slowly improved. Sent to CT of head, chest abdomen pelvis. No abnormalities were found. Probably respiratory code Darron may not be related to law did although she has received multiple doses of Dilaudid in the past. Dr. Weinberg kindly accepts patient anticipate surgery tomorrow. Is quite tearful Discharge Plan Departure Patient Disposition: Admitted As Inpatient Clinical Impression: Cholelithiasis Admit Date/Time: 11/13/21 14:34 Admit Provider: Julio Cesar Weinberg
[2021-11-13 11:00] LABS: Add Manual Diff / Slide Review NO; Basophils Absolute Auto 100 /uL (0-100); Basophils Percent Auto 1.4 % (0-2); Eosinophils Absolute Auto 100 /uL (0-450); Eosinophils Percent Auto 1.8 % (2-4); Hemoglobin 13.7 g/dL (12.0-16.0); Lymphocytes Absolute Auto 1500 /uL (1100-4500); Lymphocytes Percent Auto 29.5 % (25-40); Mean Corpuscular HGB Conc 33.4 % (30-36); Mean Corpuscular Hemoglobin 28.4 PG (26-34); Mean Corpuscular Volume 85.1 fL (80-100); Monocytes Absolute Auto 400 /uL (0-900); Monocytes Percent Auto 7.8 % (3-14); Neutrophils Absolute Auto 2900 /uL (1500-7000); Neutrophils Percent Auto 59.5 % (50-75); Platelet Count 454 X10^3/uL (150-400); Red Blood Cell Count 4.82 X10^6/uL (4.0-5.2); Red Cell Distribution Width 17.1 % (11.6-14.8); White Blood Cell Count 4.9 X10^3/uL (4.5-11.0)
[2021-11-13] MEDS: SODIUM CHLORIDE 0.9% 1,000 ML 1000 ML IV (11:01)
[2021-11-13] MEDS: HYDROMORPHONE 1 MG INJ IV ×2 (11:01→12:26)
[2021-11-13 11:39] LABS: Alanine Aminotransferase 16 IU/L (<35); Albumin 3.5 g/dL (3.5-5.0); Albumin Globulin Ratio 1.1 (1.0-2.8); Alkaline Phosphatase 86 U/L (38-126); Aspartate Aminotransferase 24 IU/L (14-36); BUN Creatinine Ratio 26.1 (6-22); Bilirubin Total 0.4 mg/dL (0.2-1.3); Blood Urea Nitrogen 12 mg/dL (7-17); Calcium 8.8 mg/dL (8.4-10.2); Carbon Dioxide 29 mmol/L (22-32); Chloride 98 mmol/L (98-107); Estimated Glomerular Filt Rate > 60 mL/min (>60); Globulin 3.1 g/dL (1.7-4.1); Glucose 138 mg/dL (70-100); HEMOLYSIS 25 (0-50); Potassium 4.2 mmol/L (3.4-5.1); Sodium 133 mmol/L (137-145); Total Protein 6.6 g/dL (6.3-8.2)
[2021-11-13 11:41] LABS: Ketones (Beta-Hydroxybutyrate) 0.34 mmol/L (<0.27)
[2021-11-13 11:55] LABS: Lactate (Lactic Acid) 0.8 mmol/L (0.7-2.1); Lipase 33 U/L (23-300); Procalcitonin 0.05 ng/mL (<0.5)
[2021-11-13 12:12] LABS: COVID19 -Nasal RAPID Negative (Negative)
[2021-11-13 12:33] LABS: Bacteria Urine None Seen; Culture Indicated Urine Cult Not Indicated; RBC Urine None Seen (0-5/HPF); Squamous Epithelial Cell Urine None Seen (0-5/HPF); WBC Urine None Seen (0-5/HPF)
[2021-11-13] MEDS: NALOXONE 0.4 MG/ML VIAL IV (12:53)
[2021-11-13] MEDS: methylPREDNISolone 125 MG/2 ML VIAL IV (13:04)
[2021-11-13] MEDS: diphenhydrAMINE 50 MG/ML VIAL 25 MG IV (13:04)
--- NOTE | 2021-11-13 13:25 | DI.CT.S_ITS ---
PROCEDURE: CT HEAD/BRAIN WO CON INDICATIONS: post cpr blurry vision TECHNIQUE: Noncontrast 4.5 mm thick angled axial sections acquired from the foramen magnum to the vertex, with coronal and sagittal reformats. For radiation dose reduction, the following was used: automated exposure control, adjustment of mA and/or kV according to patient size. COMPARISON: [facility], CT, HEAD WITHOUT CONTRAST, 01/27/2017, 2:30. [facility], CT, CT CHEST ABD PEL W CON, 11/13/2021, 13:06. FINDINGS: Image quality: This examination is limited by involuntary motion artifact. CSF spaces: Basal cisterns are patent. No extra-axial fluid collections. Ventricles are normal in size and shape. Brain: No midline shift. No intracranial masses or hemorrhage. Toure-white matter interface is normal. Skull and face: Calvarium and visualized facial bones are intact, without suspicious lesions. Sinuses: Visualized sinuses and mastoids are clear. IMPRESSION: Limited noncontrast CT study demonstrating no acute intracranial hemorrhage or other acute intracranial abnormality. If there is strong clinical suspicion for an acute stroke, please consider a brain MRI for further evaluation, as it is more sensitive (assuming that there is no contraindication to MRI). Dictated by: Remi Polanco M.D. on 11/13/2021 at 12:29 Approved by: Remi Polanco M.D. on 11/13/2021 at 12:30
--- NOTE | 2021-11-13 13:25 | DI.CT.S_ITS ---
PROCEDURE: CT CHEST ABD PEL W CON INDICATIONS: post cpr hypoxia now awake TECHNIQUE: After the administration of oral and intravenous contrast, axial sections acquired from the supraclavicular neck to the pubic symphysis. Coronal and sagittal reformats were performed. For radiation dose reduction, the following was used: automated exposure control, adjustment of mA and/or kV according to patient size. COMPARISON: [facility], CT, CT ABDOMEN PELVIS W CON, 10/14/2021, 0:00. [facility], CT, CT HEAD/BRAIN WO CON, 11/13/2021, 13:06. [facility], CT, CT CHEST ABD PEL W CON, 02/28/2019, 15:03. FINDINGS: Image quality: Excellent. CHEST: Lower Neck: No enlarged lymph nodes. Thyroid: Within normal limits. Axillae: No enlarged lymph nodes. Chest Wall: Unremarkable. Displaced rib fractures are detected. Lungs and Airways: No consolidation or suspicious nodules. Pleura: No pneumothorax or pleural effusions. Heart: Heart size is normal. No pericardial effusion. Thoracic Vessels: The aorta and pulmonary arteries demonstrate normal size. Mediastinum and Caron: No enlarged lymph nodes. Esophagus: No wall thickening. No hiatal hernia. ABDOMEN: Liver: Unremarkable. Gallbladder: Unremarkable. Biliary ducts: Unremarkable. Pancreas: Unremarkable. Spleen: Unremarkable. Incidental note is made of an accessory splenule along the inferior aspect of the primary spleen. Adrenal Glands: Unremarkable. Kidneys and Ureters: The previously seen left lateral renal lesion is no longer seen. Within the right kidney, several levels cortical scarring can be seen. The kidneys demonstrate normal size and enhance symmetrically. Mild bilateral hydronephrosis is seen. Stomach and Bowel: Stomach, small bowel loops, and colon are unremarkable. Peritoneum: No abnormal intraperitoneal fluid. No free air. Ventral Wall: No hernia. Mild generalized body wall edema can be seen. Abdominal Nodes: No retroperitoneal or mesenteric adenopathy by size criteria. Vessels: Aorta and inferior vena cava are normal in size. PELVIS: Pelvic Organs: Unremarkable. The uterus appears normal for age. No adnexal masses are seen. Bladder: The bladder is prominently enlarged, seen nearly to the level of the umbilicus, measuring 18 cm craniocaudal. Pelvic Nodes: No enlarged lymph nodes. Miscellaneous: No inguinal hernias are seen. Bones: Unremarkable. There are subacute appearing, healing fractures seen involving the right pubis and the right inferior pubic ramus. A subacute appearing fracture is also seen involving the right sacral ala, with a degree of healing fractures. IMPRESSION: No displaced rib fractures are detected. Prominently enlarged urinary bladder. Please correlate with urinary retention. Mild bilateral hydronephrosis is seen. The previously seen left renal lesion is no longer seen. Mild generalized body wall edema. Incidental note is made of: Areas of right kidney scarring are seen Accessory splenule Subacute appearing, healing right pelvic fractures Dictated by: Remi Polanco M.D. on 11/13/2021 at 12:31 Approved by: Remi Polanco M.D. on 11/13/2021 at 12:36
--- NOTE | 2021-11-13 14:17 | PC.NURSE ---
around approximately 1245 pt's mother alerted ED staff that the pt was unresponsive and not breathing. Olga RN at bedside immediately followed by this RN. Pulse present initially, airway repositioned by ASIA Espinoza/bagged pt, lost pulse at approximately 1250, pressed code button, absent pulse, CPR initiated; all staff responded. CPR was done for approx 60-90 seconds, did not receive epi during this time. MD called for narcan, prior to narcan admin pt groaning awake, CPR ceased. Narcan administered per verbal read back order from MD at bedside. Pt fully awake, tearful. Escorted to CT with RNs on all monitoring equipment. mother at bedside.
[2021-11-13] MEDS: LACTATED RINGERS 1,000 ML 100 ML IV (15:07)
[2021-11-13 15:33] LABS: Alanine Aminotransferase 48 IU/L (<35); Albumin 3.1 g/dL (3.5-5.0); Alkaline Phosphatase 81 U/L (38-126); Aspartate Aminotransferase 64 IU/L (14-36); BUN Creatinine Ratio 21.7 (6-22); Bilirubin Total 0.4 mg/dL (0.2-1.3); Blood Urea Nitrogen 10 mg/dL (7-17); Calcium 8.2 mg/dL (8.4-10.2); Carbon Dioxide 28 mmol/L (22-32); Chloride 104 mmol/L (98-107); Creatine Kinase 58 U/L (30-135); Estimated Glomerular Filt Rate > 60 mL/min (>60); Globulin 3.1 g/dL (1.7-4.1); Glucose 131 mg/dL (70-100); HEMOLYSIS 46 (0-50); Potassium 4.1 mmol/L (3.4-5.1); Sodium 135 mmol/L (137-145); Total Protein 6.2 g/dL (6.3-8.2)
[2021-11-13 15:45] LABS: Troponin I 0.013 ng/mL (0.01-0.034)
--- NOTE | 2021-11-13 15:47 | P.HP_ITS ---
History of Present Illness History of Present Illness Date Patient Seen: 11/13/21 Time Patient Seen: 15:49 Chief complaint: Gen Weak, +gallstones Narrative: This is a 31-year-old female well known to the hospitalist service with a history of type 1 diabetes and frequent admissions for DKA who has been evaluated in the emergency room multiple visits over the past month for were quadrant abdominal pain. Seen most recently 5 days ago and recommended for outpatient follow-up with General surgery for cholecystectomy. Her symptoms had not improved, which include right upper quadrant abdominal pain that is sharp. She states that there is no radiation, and antacids do not help with her symptoms. It does seemingly get worse with meals, but only sometimes. She has been unable to eat much over the past couple of days due to continued nausea. She denies any emesis currently, but states that she had a few episodes of diarrhea overnight. Patient was given Zofran and Dilaudid by EMS, and another dose of Dilaudid a few hours later in the emergency room. Approximately 20-30 minutes after her dose of pain medications, the patient had a code blue called in the emergency room. The patient has no recollection of the event. Her mother was present E episode and stated that the patient was asleep but then was gasping and her fingers were blue. Patient's mother ran out to get attention and a code blue was called. CPR was performed, no medications were given and patient had Rosc within 90 seconds. Glucose was within normal limits and she was not hypoglycemic. She did receive Benadryl and narcan but after ROSC had been achieved. The patient currently complains of chest discomfort, as well as her right upper quadrant pain but otherwise denies shortness of breath, cough, fever, chills, lower extremity swelling. EKG formed after CPR showed sinus ta chycardia, troponin was within normal limits at 0.013. Given presentation, patient admitted to medicine for further management with general surgery consultation. Patient History Medical History DKA (diabetic ketoacidoses) History of pyelonephritis Irregular menstrual cycle Migraine headache Nephrolithiasis Noncompliance w/medication treatment due to intermit use of medication Type 1 diabetes mellitus Surgical History History of ureter stent Hx of cataract surgery Hx of local excision of skin lesion Status post laser lithotripsy of ureteral calculus [place] teeth extracted Family & Social History Family History Father In good health Mother Cardiac disease Social History: household members significant other Prior Living Arrangements House Safety & Behavioral: Feels Safe in Current Yes Environment Been Physically Hurt or No Threatened By a Person Tobacco & Substance use: Smoking Status Never smoker alcohol intake never alcohol intake frequency holiday/special occasion Substance Use Type does not use Meds Home Medications and Allergies Home Medications Medication Instructions Recorded Confirmed Type glucose 4 gram chewable tablet 4 gram PO Q15M PRN hypoglycemia 12/12/18 11/13/21 Rx #30 tabs glucagon (human recombinant) 1 mg 1 mg SUBCUT DIRECTED 02/16/19 11/13/21 History solution for injection (Glucagon Emergency Kit) diphenhydramine HCl 50 mg capsule 50 mg PO BEDTIME PRN Sleep 09/29/20 11/13/21 H istory ondansetron 4 mg disintegrating 4 mg PO Q8H PRN nausea and 11/08/21 11/13/21 Rx tablet vomiting #10 tabs hydrocodone 5 mg-acetaminophen 325 1 tab PO TID pain 11/13/21 11/13/21 History mg tablet insulin aspart U-100 100 unit/mL sliding scale dose SUBCUT TID 11/13/21 History (3 mL) subcutaneous pen (Novolog Flexpen U-100 Insulin aspart) insulin degludec 200 unit/mL (3 13 ea SUBCUT BID 11/13/21 11/13/21 History mL) subcutaneous pen (Tresiba FlexTouch U-200 insulin) methocarbamol 500 mg tablet 1 tab PO TID 11/13/21 11/13/21 History pantoprazole 40 mg tablet,delayed 40 mg PO BEDTIME 11/13/21 11/13/21 History release sennosides 8.6 mg tablet (senna) 8.6 mg PO DAILY 11/13/21 11/13/21 History Allergies Allergy/AdvReac Type Severity Reaction Status Date / Time arredondo [ARREDONDO] Allergy Intermediate Hives, Verified 10/15/21 14:31 pruritus iodine [IODINE] Allergy Intermediate rash, itchy Verified 10/15/21 14:31 morphine Allergy Intermediate Difficulty Verified 10/15/21 14:31 Breathing shellfish derived Allergy Intermediate rash Verified 10/15/21 14:31 [SHELLFISH DERIVED] adhesive [ADHESIVE] Allergy Unknown tape Verified 10/15/21 14:31 latex [LATEX] Allergy Unknown Hives Verified 10/15/21 14:31 Review of Systems Review of Systems Narrative: All other systems reviewed with the patient and are negative unless otherwise stated. Exam Vital Signs (past 8 hours): - 11/13/21 11:00 11/13/21 10:56 11/13/21 11:00 Temperature 97.7 F Pulse Rate 111 H 112 H 113 H Respiratory Rate 20 18 16 Blood Pressure 178/112 H 192/122 H Pulse Oximetry 99 99 99 Oxygen Delivery Method Room Air Oxygen Flow Rate 11/13/21 11:30 11/13/21 12:00 11/13/21 12:30 Temperature Pulse Rate 115 H 119 H Respiratory Rate 18 16 Blood Pressure 172/112 H 203/128 H 195/116 H Pulse Oximetry 99 100 Oxygen Delivery Method Oxygen Flow Rate 11/13/21 12:30 11/13/21 13:30 11/13/21 13:34 Temperature Pulse Rate 112 H 120 H 121 H Respiratory Rate 14 11 L 16 Blood Pressure 197/121 H Pulse Oximetry 100 99 99 Oxygen Delivery Method Room Air Oxygen Flow Rate 11/13/21 14:00 11/13/21 14:30 11/13/21 14:30 Temperature 98.1 F 98.1 F Pulse Rate 121 H 120 H 120 H Respiratory Rate 15 21 20 Blood Pressure 189/121 H 161/110 H 161/110 H Pulse Oximetry 99 99 99 Oxygen Delivery Method Room Air Oxygen Flow Rate 0 0 Oxygen Delivery Method Room Air Oxygen Flow Rate 0 Narrative Exam Narrative: General:? Patient is chronically ill appearing, pale female. Appears uncomfortable. HEENT:? Normocephalic, atraumatic, extraocular muscles intact, oral pharynx is clear and mucous membranes are moist. Neck: supple and symmetric, trachea is midline, no cervical adenopathy. Negative for JVD Chest:? Normal AP diameter and contour without kyphoscoliosis, no tachypnea, equal chest rise bilaterally. + tenderness. Lungs:? CTA b/l no wheezing rhonchi or rales. Cardio:?tachycardic with regular rhythm, no m/r/g. Abdomen: soft, non-distended. tenderness RUQ and epigastrium with minimal palpation. + murphys. Musculoskeletal:? Muscle strength and tone are equal within normal limits, no deformity. Extremities: No edema or joint effusions. No cyanosis or clubbing. Skin:? Pale,? Warm to touch,dry and intact without rashes, ulcerations or petechiae.? Neuro:? Alert and orientated x3,? sensation to touch intact in all extremities, no gross deficits noted of cranial nerves. Psych:? Patient has a well-kept appearance, appropriate affect, mental status attitude thought context and judgment are appropriate for age. Objective ECG Impression: Sinus tachycardia. Qtc 490. Labs Result Diagrams: 11/13/21 10:45 11/13/21 15:11 Labs: Laboratory Results - last 24 hr 11/13/21 11/13/21 11/13/21 10:45 10:45 10:45 WBC 4.9 RBC 4.82 Hgb 13.7 Hct 41.0 MCV 85.1 MCH 28.4 MCHC 33.4 RDW 17.1 H Plt Count 454 H Neut % (Auto) 59.5 Lymph % (Auto) 29.5 [place] % (Auto) 7.8 Eos % (Auto) 1.8 L Baso % (Auto) 1.4 Neut # (Auto) 2900 Lymph # (Auto) 1500 [place] # (Auto) 400 Eos # (Auto) 100 Baso # (Auto) 100 Sodium 133 L Potassium 4.2 Chloride 98 Carbon Dioxide 29 BUN 12 Creatinine 0.46 L Estimated GFR > 60 BUN/Creatinine Ratio 26.1 H Glucose 138 H D Lactate 0.8 Calcium 8.8 Total Bilirubin 0.4 AST 24 ALT 16 Alkaline Phosphatase 86 Total Creatine Kinase CK-MB (CK-2) CK-MB (CK-2) Rel Index Troponin I Total Protein 6.6 Albumin 3.5 Globulin 3.1 Albumin/Globulin Ratio 1.1 Lipase Procalcitonin 0.05 Urine RBC Urine WBC Ur Squamous Epith Cells Urine Bacteria Ur Culture Indicated? Ketones 0.34 H SARS-CoV-2 (PCR) 11/13/21 11/13/21 11/13/21 10:45 11:38 11:55 WBC RBC Hgb Hct MCV MCH MCHC RDW Plt Count Neut % (Auto) Lymph % (Auto) [place] % (Auto) Eos % (Auto) Baso % (Auto) Neut # (Auto) Lymph # (Auto) [place] # (Auto) Eos # (Auto) Baso # (Auto) Sodium Potassium Chloride Carbon Dioxide BUN Creatinine Estimated GFR BUN/Creatinine Ratio Glucose Lactate Calcium Total Bilirubin AST ALT Alkaline Phosphatase Total Creatine Kinase CK-MB (CK-2) CK-MB (CK-2) Rel Index Troponin I Total Protein Albumin Globulin Albumin/Globulin Ratio Lipase 33 Procalcitonin Urine RBC None seen Urine WBC None seen Ur Squamous Epith Cells None seen Urine Bacteria None seen Ur Culture Indicated? Cult not indicated Ketones SARS-CoV-2 (PCR) Negative 11/13/21 15:11 WBC RBC Hgb Hct MCV MCH MCHC RDW Plt Count Neut % (Auto) Lymph % (Auto) [place] % (Auto) Eos % (Auto) Baso % (Auto) Neut # (Auto) Lymph # (Auto) [place] # (Auto) Eos # (Auto) Baso # (Auto) Sodium 135 L Potassium 4.1 Chloride 104 Carbon Dioxide 28 BUN 10 Creatinine 0.46 L Estimated GFR > 60 BUN/Creatinine Ratio 21.7 Glucose 131 H Lactate Calcium 8.2 L Total Bilirubin 0.4 AST 64 H ALT 48 H Alkaline Phosphatase 81 Total Creatine Kinase 58 CK-MB (CK-2) TNP CK-MB (CK-2) Rel Index TNP Troponin I 0.013 Total Protein 6.2 L Albumin 3.1 L Globulin 3.1 Albumin/Globulin Ratio 1.0 Lipase Procalcitonin Urine RBC Urine WBC Ur Squamous Epith Cells Urine Bacteria Ur Culture Indicated? Ketones SARS-CoV-2 (PCR) Assessment & Plan Assessment & Plan narrative: 31 F admitted with symptomatic cholelithiasis, admitted to medicine after uncertain arrest in the ER. 1. Unknown arrest s/p ROSC - suspect allergic reaction or respiratory arrest in the setting of opiate administration. - patient had approx 90 seconds of CPR with ROSC. No medications were given prior to ROSC. Was given narcan and benadryl / methylprednisolone after. - also possible QT prolongation with polypharmacy, though this is less likely. - unlikely cardiac etiology or PE. CT chest abd and pelvis was unremarkable. Troponin within normal limits. - narcan prn. continue tele. Will check TTE given arrest prior to surgical intervention. - limit opiates for pain control, though she now has multiple non-displaced rib fractures as a result of CPR. 2. Symptomatic cholelithiasis. - US with large stone or mass in the gallbladder fundus. No evidence of cholecystitis. But patient's symptoms persist. ER consulted with general surgery and plans for OR tomorrow. - If TTE is okay, patient appears medically optimized. 3. Type 1 diabetes - Patient at home takes 13 U tresiba BID. Reduce to 10 U BID for now - okay for low fat diet, NPO at midnight. - sliding scale ordered - easily develops DKA, keep basal insulin on board. 4. GERD - continue omeprazole 5. bilateral hydronephrosis with urinary distension - no current symptoms, does have history of retention due to diabetic uropathy. Seen on CT imaging. - creatinine within normal limits. Surrogate: mother Code: Full Dispo: Admit as inpatient I have utilized all available immediate resources to obtain, update, or review the patient's current medications. COVID-19 COVID-19 status: Negative Time Spent With Patient Critical Care time: I spent a total of [] minutes of critical care time on this patient's care today; this time is exclusive of procedural time. Quality VTE Deep Vein Thrombosis/Pulmonary Embolism Present on Admission: No MIPS - Admit I confirm the patient?s Advance Care Plan is present, Code status is documented, Surrogate decision maker is in patient?s record [If Yes, STOP here]: Yes
[2021-11-13 16:02] LABS: Add Manual Diff / Slide Review NO; Basophils Absolute Auto 100 /uL (0-100); Basophils Percent Auto 0.9 % (0-2); Eosinophils Absolute Auto 0 /uL (0-450); Eosinophils Percent Auto 0.3 % (2-4); Hematocrit 38.3 % (36-46); Hemoglobin 13.1 g/dL (12.0-16.0); Lymphocytes Absolute Auto 800 /uL (1100-4500); Lymphocytes Percent Auto 12.7 % (25-40); Mean Corpuscular HGB Conc 34.1 % (30-36); Mean Corpuscular Hemoglobin 28.8 PG (26-34); Mean Corpuscular Volume 84.3 fL (80-100); Monocytes Absolute Auto 200 /uL (0-900); Monocytes Percent Auto 2.5 % (3-14); Neutrophils Absolute Auto 5100 /uL (1500-7000); Neutrophils Percent Auto 83.6 % (50-75); Platelet Count 389 X10^3/uL (150-400); Red Blood Cell Count 4.55 X10^6/uL (4.0-5.2); Red Cell Distribution Width 17.3 % (11.6-14.8); White Blood Cell Count 6.1 X10^3/uL (4.5-11.0)
--- NOTE | 2021-11-13 17:01 | DIET.CONS2 ---
Dietary Inpatient Consultation Note Admission Date: 11/13/2021 14:34 Pt given diet order Low/Restricted Fat diet. Please note pt is brittle T1D with frequent admissions for DKA. Please order Consistent Carb 30g diet with low fat modifier as needed when pt out of surgery. Please limit high CHO snacks/beverages. Diet: 11/13/21 Dinner Low/restricted Fat Diet Diet Modifications: Dietary Fat allowed: 50 grams 11/14/21 00:01 NPO Diet Diet Modifications: NPO Type: NPO after Midnight Electronically Signed by: Ellen Kumari 11/13/21 17:01 Clinical Dietitian [address] [address]
[2021-11-13] MEDS: INSULIN LISPRO 100 UNIT/ML 3ML VIAL SUBCUT ×2 (17:11→20:09)
[2021-11-13] MEDS: KETOROLAC 30 MG/ML VIAL IV (17:16)
--- NOTE | 2021-11-13 17:58 | P.CONS_ITS ---
History of Present Illness Consult details Date Patient Seen: 11/13/21 Time Patient Seen: 17:58 Chief complaint: Gen Weak, +gallstones Narrative: 31-year-old woman who has been seen several times recently in the ER for abdominal pain and has been found to have cholelithiasis without acute cholecystitis. In the ER today she became unresponsive and a code blue was called and she received CPR briefly before having a full recovery. She is no history of abdominal surgery. She is a type 1 diabetic. Meds Home Medications and Allergies Home Medications Medication Instructions Recorded Confirmed Type glucose 4 gram chewable tablet 4 gram PO Q15M PRN hypoglycemia 12/12/18 11/13/21 Rx #30 tabs glucagon (human recombinant) 1 mg 1 mg SUBCUT DIRECTED 02/16/19 11/13/21 History solution for injection (Glucagon Emergency Kit) diphenhydramine HCl 50 mg capsule 50 mg PO BEDTIME PRN Sleep 09/29/20 11/13/21 History ondansetron 4 mg disintegrating 4 mg PO Q8H PRN nausea and 11/08/21 11/13/21 Rx tablet vomiting #10 tabs hydrocodone 5 mg-acetaminophen 325 1 tab PO TID pain 11/13/21 11/13/21 History mg tablet insulin aspart U-100 100 unit/mL sliding scale dose SUBCUT TID 11/13/21 History (3 mL) subcutaneous pen (Novolog Flexpen U-100 Insulin aspart) insulin degludec 200 unit/mL (3 13 ea SUBCUT BID 11/13/21 11/13/21 History mL) subcutaneous pen (Tresiba FlexTouch U-200 insulin) methocarbamol 500 mg tablet 1 tab PO TID 11/13/21 11/13/21 History pantoprazole 40 mg tablet,delayed 40 mg PO BEDTIME 11/13/21 11/13/21 History release sennosides 8.6 mg tablet (senna) 8.6 mg PO DAILY 11/13/21 11/13/21 History Allergies Allergy/AdvReac Type Severity Reaction Status Date / Time arredondo [ARREDONDO] Allergy Intermediate Hives, Verified 10/15/21 14:31 pruritus iodine [IODINE] Allergy Intermediate rash, itchy Verified 10/15/21 14:31 morphine Allergy Intermediate Difficulty Verified 10/15/21 14:31 Breathing shellfish derived Allergy Intermediate rash Verified 10/15/21 14:31 [SHELLFISH DERIVED] adhesive [ADHESIVE] Allergy Unknown tape Verified 10/15/21 14:31 latex [LATEX] Allergy Unknown Hives Verified 10/15/21 14:31 Exam Vital Signs (past 8 hours): - 11/13/21 11:00 11/13/21 10:56 11/13/21 11:00 Temperature 97.7 F Pulse Rate 111 H 112 H 113 H Respiratory Rate 20 18 16 Blood Pressure 178/112 H 192/122 H Pulse Oximetry 99 99 99 Oxygen Delivery Method Room Air Oxygen Flow Rate 11/13/21 11:30 11/13/21 12:00 11/13/21 12:30 Temperature Pulse Rate 115 H 119 H Respiratory Rate 18 16 Blood Pressure 172/112 H 203/128 H 195/116 H Pulse Oximetry 99 100 Oxygen Delivery Method Oxygen Flow Rate 11/13/21 12:30 11/13/21 13:30 11/13/21 13:34 Temperature Pulse Rate 112 H 120 H 121 H Respiratory Rate 14 11 L 16 Blood Pressure 197/121 H Pulse Oximetry 100 99 99 Oxygen Delivery Method Room Air Oxygen Flow Rate 11/13/21 14:00 11/13/21 14:30 11/13/21 14:30 Temperature 98.1 F 98.1 F Pulse Rate 121 H 120 H 120 H Respiratory Rate 15 21 20 Blood Pressure 189/121 H 161/110 H 161/110 H Pulse Oximetry 99 99 99 Oxygen Delivery Method Room Air Oxygen Flow Rate 0 0 11/13/21 16:38 Temperature Pulse Rate 116 H Respiratory Rate 18 Blood Pressure 156/109 H Pulse Oximetry Oxygen Delivery Method Oxygen Flow Rate Oxygen Delivery Method Room Air Oxygen Flow Rate 0 Narrative Exam Narrative: Right upper quadrant is tender to palpation with positive Gómez sign Objective Labs Result Diagrams: 11/13/21 15:50 11/13/21 15:11 Labs: Laboratory Results - last 24 hr 11/13/21 11/13/21 11/13/21 10:45 10:45 10:45 WBC 4.9 RBC 4.82 Hgb 13.7 Hct 41.0 MCV 85.1 MCH 28.4 MCHC 33.4 RDW 17.1 H Plt Count 454 H Neut % (Auto) 59.5 Lymph % (Auto) 29.5 [place] % (Auto) 7.8 Eos % (Auto) 1.8 L Baso % (Auto) 1.4 Neut # (Auto) 2900 Lymph # (Auto) 1500 [place] # (Auto) 400 Eos # (Auto) 100 Baso # (Auto) 100 Sodium 133 L Potassium 4.2 Chloride 98 Carbon Dioxide 29 BUN 12 Creatinine 0.46 L Estimated GFR > 60 BUN/Creatinine Ratio 26.1 H Glucose 138 H D Lactate 0.8 Calcium 8.8 Total Bilirubin 0.4 AST 24 ALT 16 Alkaline Phosphatase 86 Total Creatine Kinase CK-MB (CK-2) CK-MB (CK-2) Rel Index Troponin I Total Protein 6.6 Albumin 3.5 Globulin 3.1 Albumin/Globulin Ratio 1.1 Lipase Procalcitonin 0.05 Urine RBC Urine WBC Ur Squamous Epith Cells Urine Bacteria Ur Culture Indicated? Ketones 0.34 H SARS-CoV-2 (PCR) 11/13/21 11/13/21 11/13/21 10:45 11:38 11:55 WBC RBC Hgb Hct MCV MCH MCHC RDW Plt Count Neut % (Auto) Lymph % (Auto) [place] % (Auto) Eos % (Auto) Baso % (Auto) Neut # (Auto) Lymph # (Auto) [place] # (Auto) Eos # (Auto) Baso # (Auto) Sodium Potassium Chloride Carbon Dioxide BUN Creatinine Estimated GFR BUN/Creatinine Ratio Glucose Lactate Calcium Total Bilirubin AST ALT Alkaline Phosphatase Total Creatine Kinase CK-MB (CK-2) CK-MB (CK-2) Rel Index Troponin I Total Protein Albumin Globulin Albumin/Globulin Ratio Lipase 33 Procalcitonin Urine RBC None seen Urine WBC None seen Ur Squamous Epith Cells None seen Urine Bacteria None seen Ur Culture Indicated? Cult not indicated Ketones SARS-CoV-2 (PCR) Negative 11/13/21 11/13/21 15:11 15:50 WBC 6.1 RBC 4.55 Hgb 13.1 Hct 38.3 MCV 84.3 MCH 28.8 MCHC 34.1 RDW 17.3 H Plt Count 389 Neut % (Auto) 83.6 H D Lymph % (Auto) 12.7 L [place] % (Auto) 2.5 L Eos % (Auto) 0.3 L Baso % (Auto) 0.9 Neut # (Auto) 5100 Lymph # (Auto) 800 L [place] # (Auto) 200 Eos # (Auto) 0 Baso # (Auto) 100 Sodium 135 L Potassium 4.1 Chloride 104 Carbon Dioxide 28 BUN 10 Creatinine 0.46 L Estimated GFR > 60 BUN/Creatinine Ratio 21.7 Glucose 131 H Lactate Calcium 8.2 L Total Bilirubin 0.4 AST 64 H ALT 48 H Alkaline Phosphatase 81 Total Creatine Kinase 58 CK-MB (CK-2) TNP CK-MB (CK-2) Rel Index TNP Troponin I 0.013 Total Protein 6.2 L Albumin 3.1 L Globulin 3.1 Albumin/Globulin Ratio 1.0 Lipase Procalcitonin Urine RBC Urine WBC Ur Squamous Epith Cells Urine Bacteria Ur Culture Indicated? Ketones SARS-CoV-2 (PCR) [facility] Medical History DKA (diabetic ketoacidoses) History of pyelonephritis Irregular menstrual cycle Migraine headache Nephrolithiasis Noncompliance w/medication treatment due to intermit use of medication Type 1 diabetes mellitus Surgical History History of ureter stent Hx of cataract surgery Hx of local excision of skin lesion Status post laser lithotripsy of ureteral calculus [place] teeth extracted Family History Father In good health Mother Cardiac disease Social History details: Engaged household members: significant other Tobacco & Substance Use Smoking Status: Never smoker alcohol intake: never Assessment & Plan Assessment and plan (1) Cholelithiasis: Qualifiers: Cholelithiasis location: gallbladder Cholecystitis presence: without cholecystitis Biliary obstruction: without biliary obstruction Qualified Code(s): K80.20 - Calculus of gallbladder without cholecystitis without obstruction Status: Acute Plan Will plan for laparoscopic cholecystectomy tomorrow. We reviewed the risks and benefits and she would like to proceed. Time Spent With Patient Critical Care time: I spent a total of [] minutes of critical care time on this patient's care today; this time is exclusive of procedural time.
[2021-11-13] MEDS: TRAMADOL 50 MG TABLET PO (20:07)
[2021-11-13] MEDS: INSULIN GLARGINE 100 UNIT/ML 3ML PEN 8 UNIT SUBCUT (20:12)
[2021-11-13] MEDS: PANTOPRAZOLE DR 40 MG TABLET PO (20:15)
[2021-11-13] MEDS: HYDROCODONE/ACET 5/325 TABLET 1 TAB PO (23:25)
[2021-11-13] MEDS: ONDANSETRON 4 MG/2 ML INJ IV (23:26)
[2021-11-14] VITALS (10 sets, daily range): BP systolic 149–169; BP diastolic 96–118; PULSE 103–119; RESP 17–21; TEMP 36.3–36.6; O2SAT 95–99
[2021-11-14] MEDS: KETOROLAC 30 MG/ML VIAL IV ×3 (00:13→20:08)
[2021-11-14] MEDS: LACTATED RINGERS 1,000 ML 100 ML IV ×2 (00:14→10:50)
[2021-11-14] MEDS: TRAMADOL 50 MG TABLET PO ×3 (02:25→08:35)
--- NOTE | 2021-11-14 05:03 | PC.NURSE ---
Provider, Ky Sauer, was notified at 0500 on 11/14/2021 regarding a change in pt's condition. Pt awoke with px in abdomen, denied px anywhere else, and described it as sharp and constant. BP: 168/116, HR: 116, RR: 20, O2Sat: 98 RA, Temp: 97.7, and px 10/10. Pt had c/o of increased thirst, BS checked x2: 343, 378. Provider is placing order for one time dose of tramadol and reviewing insulin orders.
[2021-11-14 05:58] LABS: Add Manual Diff / Slide Review NO; Basophils Absolute Auto 0 /uL (0-100); Basophils Percent Auto 0.6 % (0-2); Eosinophils Absolute Auto 0 /uL (0-450); Eosinophils Percent Auto 0.1 % (2-4); Hematocrit 36.5 % (36-46); Hemoglobin 12.2 g/dL (12.0-16.0); Lymphocytes Absolute Auto 1500 /uL (1100-4500); Lymphocytes Percent Auto 20.5 % (25-40); Mean Corpuscular HGB Conc 33.5 % (30-36); Mean Corpuscular Hemoglobin 28.6 PG (26-34); Mean Corpuscular Volume 85.3 fL (80-100); Monocytes Absolute Auto 600 /uL (0-900); Monocytes Percent Auto 8.4 % (3-14); Neutrophils Absolute Auto 5300 /uL (1500-7000); Neutrophils Percent Auto 70.4 % (50-75); Platelet Count 380 X10^3/uL (150-400); Red Blood Cell Count 4.28 X10^6/uL (4.0-5.2); Red Cell Distribution Width 17.2 % (11.6-14.8); White Blood Cell Count 7.5 X10^3/uL (4.5-11.0)
[2021-11-14 06:13] LABS: Alanine Aminotransferase 32 IU/L (<35); Albumin 2.8 g/dL (3.5-5.0); Alkaline Phosphatase 99 U/L (38-126); Aspartate Aminotransferase 26 IU/L (14-36); BUN Creatinine Ratio 34.4 (6-22); Bilirubin Total 0.3 mg/dL (0.2-1.3); Bilirubin Unconjugated 0.2 mg/dL (0.0-1.1); Blood Urea Nitrogen 22 mg/dL (7-17); Calcium 8.3 mg/dL (8.4-10.2); Carbon Dioxide 27 mmol/L (22-32); Chloride 104 mmol/L (98-107); Estimated Glomerular Filt Rate > 60 mL/min (>60); Globulin 2.7 g/dL (1.7-4.1); Glucose 374 mg/dL (70-100); HEMOLYSIS < 15 (0-50); Potassium 4.3 mmol/L (3.4-5.1); Sodium 133 mmol/L (137-145); Total Protein 5.5 g/dL (6.3-8.2)
[2021-11-14 06:30] LABS: Hemoglobin A1C% w Est Avg Glu 8.3 % (4.0-6.0)
--- NOTE | 2021-11-14 07:27 | DI.ECHO.S_ITS ---
Reason For Study: UNKNOWN ARREST : :Ordering Physician: VIDYA, : :LUIS RONQUILLO Performed By: Jie Salinas : :Referring: LUIS DASILVA : + + Interpretation Summary STAT for Pre-Surgery Workup The patient was in sinus tachycardia with heart rates between 114-117 bpm during the exam. Hypertensive during exam The left ventricle is normal in size and wall thickness. Left ventricular ejection fraction is estimated to be 40-45%. Global hypokinesis The left atrium is borderline dilated. The IVC is of normal diameter and collapses greater than 50% with a sniff. This suggests a low right atrial pressure of 3 mm Hg. Global longitudinal strain (GLS) -12% No prior study for comparison Procedure: A two-dimensional transthoracic echocardiogram with color flow and Doppler was performed. The study quality was technically good. There is no prior echocardiogram noted for this patient. The patient was in sinus tachycardia with heart rates between 114-117 bpm during the exam. Hypertensive during exam. Left Ventricle: The left ventricle is normal in size and wall thickness. Left ventricular ejection fraction is estimated to be 40-45%. Global hypokinesis. Diastolic function could not be accurately assessed due to tachycardia. Right Ventricle: The right ventricle is normal in size and function. Atria: The left atrium is borderline dilated. Right atrial size is normal. There is no Doppler evidence for an interatrial shunt. Mitral Valve: The mitral valve is normal in structure and function. There is trace mitral regurgitation. Aortic Valve: The aortic valve is trileaflet. The aortic valve opens well. There is no aortic valve stenosis. No aortic regurgitation is present. Tricuspid Valve: The tricuspid valve is normal in structure and function. No tricuspid regurgitation. Pulmonic Valve: The pulmonic valve leaflets are thin and pliable; valve motion is normal. There is no pulmonic valvular regurgitation. Great Vessels: The aortic root is normal size. The dimensions of the ascending aorta are normal. The IVC is of normal diameter and collapses greater than 50% with a sniff. This suggests a low right atrial pressure of 3 mm Hg. Pericardium/ Pleura There is no pericardial effusion. There is no pleural effusion. MMode/2D Measurements & Calculations LVIDd: 4.4 cm LVOT diam: 1.7 cm LVIDs: 3.5 cm Ao root diam: 2.6 cm FS: 19.3 % asc Aorta Diam: 2.9 cm EPSS: 0.80 cm Ao Arch Diam (Prox Trans): 2.6 cm IVSd: 0.79 cm LVPWd: 0.84 cm LV naranjo. diameter/BSA (cm/m^2): 3.1 LV sys. diameter/BSA (cm/m^2): 2.5 LA A2 area: 18.3 cm2 RA long axis: 3.7 cm LA A4 area: 14.9 cm2 RA area: 10.3 cm2 LA length (vol): 4.9 cm RA vol: 24.7 ml LA vol: 47.0 ml RA : 17.5 ml/m2 LA vol index: 33.4 ml/m2 IVC diam: 1.5 cm RVD1 (basal): 2.4 cm RVD2 (mid): 1.9 cm TAPSE: 2.0 cm Doppler Measurements & Calculations Ao V2 max: 116.9 cm/sec LVOT Max Pepito: 81.9 cm/sec Ao V2 mean: 83.2 cm/sec LV V1 max P.7 mmHg Ao max P.5 mmHg LV V1 VTI: 15.2 cm Ao mean P.2 mmHg TORI(I,D): 1.5 cm2 Ao V2 VTI: 22.4 cm TORI(V,D): 1.6 cm2 sev ratio: 0.68 TORI indexed to BSA (cm^2/m^2): 1.1 MV E max pepito: 155.7 cm/sec PA V2 max: 83.4 cm/sec MV A max pepito: 2.2 cm/sec PA V2 mean: 63.4 cm/sec MV E/A: 72.1 PA mean P.8 mmHg Med Peak E' Pepito: 14.3 cm/sec PA Accel Time: 0.09 sec E/E' med: 10.9 Lat Peak E' Pepito: 18.8 cm/sec E/E' lat: 8.3 E/e' average: 9.6 MV dec time: 0.15 sec SV(LVOT): 34.0 ml Reading Physician:MINOO
[2021-11-14] MEDS: INSULIN LISPRO 100 UNIT/ML 3ML VIAL SUBCUT ×3 (08:36→20:08)
[2021-11-14] MEDS: INSULIN GLARGINE 100 UNIT/ML 3ML PEN 10 UNIT SUBCUT ×2 (08:54→20:07)
--- NOTE | 2021-11-14 13:20 | CM.DANOTE ---
Initial Discharge Planning Note: Case received, EMR reviewed. Met with patient in her room, introduced self and role. Payer: [employer] and Medicaid. PCP: Maria Ines Limon 31 year old female, type 1 diabetic, admitted with abdominal pain caused by cholelithiasis and lap choley planned for today at 5 pm. Patient had recent pelvic fracture and is living with parents locally. At baseline, patient is mostly independent in ADLs and does not drive. Has DME in place at home for ADLS: walker, shower bench. Plan: When medically stable, return home to parents. Mother will transport in private vehicle. DCP to follow. 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 No Advance Directives on File No History Provided By Patient,Medical Record Prior Living Arrangements House Comment lives with parents Comment parents Type of transporation used prior to Relies on Others admit Independent with ADL's No: some assist required due to recent pelvic fx Is patient alert and oriented? Yes Needs Assistance With Meal Prep,Home Chores / Shopping Caregiver for Another No Barriers to Discharge No Comment PCP is Dr. Limon at [facility]# [phone]. Discharge Plan Home Transportation Arrangement Family Referrals Initiated Other Review Status In Process Next Review Type Continued Stay Review
[2021-11-14] MEDS: HYDROMORPHONE 0.5 MG INJ IV ×2 (13:46→20:06)
--- NOTE | 2021-11-14 13:59 | PM.PN.1 ---
Subjective Subjective Date Patient Seen: 11/14/21 Interval history: Continues to have some abdominal and chest discomfort today. Some nausea but no emesis. No events on telemetry review since admission. Exam Vital Signs (past 8 hours): - 11/14/21 06:00 11/14/21 07:35 11/14/21 11:30 Temperature 97.8 F 97.9 F Pulse Rate 119 H 114 H Respiratory Rate 21 20 Blood Pressure 169/118 H 161/109 H Pulse Oximetry 98 99 96 Oxygen Delivery Method Room Air Oxygen Flow Rate 0 0 Oxygen Delivery Method Room Air Oxygen Flow Rate 0 Narrative Exam Narrative: General:? Patient is chronically ill appearing, pale female. Appears uncomfortable. HEENT:? Normocephalic, atraumatic, extraocular muscles intact, oral pharynx is clear and mucous membranes are moist. Neck: supple and symmetric, trachea is midline, no cervical adenopathy. Negative for JVD Chest:? Normal AP diameter and contour without kyphoscoliosis, no tachypnea, equal chest rise bilaterally. + tenderness. Lungs:? CTA b/l no wheezing rhonchi or rales. Cardio:?tachycardic with regular rhythm, no m/r/g. Abdomen: soft, non-distended. tenderness RUQ and epigastrium with minimal palpation. + murphys. Musculoskeletal:? Muscle strength and tone are equal within normal limits, no deformity. Extremities: No edema or joint effusions. No cyanosis or clubbing. Skin:? Pale,? Warm to touch,dry and intact without rashes, ulcerations or petechiae.? Neuro:? Alert and orientated x3,? sensation to touch intact in all extremities, no gross deficits noted of cranial nerves. Psych:? Patient has a well-kept appearance, appropriate affect, mental status attitude thought context and judgment are appropriate for age. Objective Labs Result Diagrams: 11/14/21 05:30 11/14/21 05:30 Labs: Laboratory Results - last 24 hr 11/13/21 11/13/21 11/14/21 15:11 15:50 05:30 WBC 6.1 7.5 RBC 4.55 4.28 Hgb 13.1 12.2 Hct 38.3 36.5 MCV 84.3 85.3 MCH 28.8 28.6 MCHC 34.1 33.5 RDW 17.3 H 17.2 H Plt Count 389 380 Neut % (Auto) 83.6 H D 70.4 Lymph % (Auto) 12.7 L 20.5 L George % (Auto) 2.5 L 8.4 Eos % (Auto) 0.3 L 0.1 L Baso % (Auto) 0.9 0.6 Neut # (Auto) 5100 5300 Lymph # (Auto) 800 L 1500 George # (Auto) 200 600 Eos # (Auto) 0 0 Baso # (Auto) 100 0 Sodium 135 L Potassium 4.1 Chloride 104 Carbon Dioxide 28 BUN 10 Creatinine 0.46 L Estimated GFR > 60 BUN/Creatinine Ratio 21.7 Glucose 131 H Hemoglobin A1c Calcium 8.2 L Total Bilirubin 0.4 Conjugated Bilirubin Unconjugated Bilirubin AST 64 H ALT 48 H Alkaline Phosphatase 81 Total Creatine Kinase 58 CK-MB (CK-2) TNP CK-MB (CK-2) Rel Index TNP Troponin I 0.013 Total Protein 6.2 L Albumin 3.1 L Globulin 3.1 Albumin/Globulin Ratio 1.0 11/14/21 11/14/21 05:30 05:30 WBC RBC Hgb Hct MCV MCH MCHC RDW Plt Count Neut % (Auto) Lymph % (Auto) George % (Auto) Eos % (Auto) Baso % (Auto) Neut # (Auto) Lymph # (Auto) George # (Auto) Eos # (Auto) Baso # (Auto) Sodium 133 L Potassium 4.3 Chloride 104 Carbon Dioxide 27 BUN 22 H Creatinine 0.64 Estimated GFR > 60 BUN/Creatinine Ratio 34.4 H Glucose 374 H D Hemoglobin A1c 8.3 H Calcium 8.3 L Total Bilirubin 0.3 Conjugated Bilirubin 0.0 Unconjugated Bilirubin 0.2 AST 26 ALT 32 Alkaline Phosphatase 99 Total Creatine Kinase CK-MB (CK-2) CK-MB (CK-2) Rel Index Troponin I Total Protein 5.5 L Albumin 2.8 L Globulin 2.7 Albumin/Globulin Ratio 1.0 PFSH Medical History DKA (diabetic ketoacidoses) History of pyelonephritis Irregular menstrual cycle Migraine headache Nephrolithiasis Noncompliance w/medication treatment due to intermit use of medication Type 1 diabetes mellitus Surgical History History of ureter stent Hx of cataract surgery Hx of local excision of skin lesion Status post laser lithotripsy of ureteral calculus [place] teeth extracted Family History Father In good health Mother Cardiac disease Social History details: Engaged household members: significant other Smoking Status: Never smoker alcohol intake: never Assessment & Plan Assessment & Plan narrative: 31 F admitted with symptomatic cholelithiasis, admitted to medicine after uncertain arrest in the ER. 1. Unknown arrest s/p ROSC - suspect allergic reaction or respiratory arrest in the setting of opiate administration. - patient had approx 90 seconds of CPR with ROSC. No medications were given prior to ROSC. Was given narcan and benadryl / methylprednisolone after. - also possible QT prolongation with polypharmacy, though this is less likely. - unlikely cardiac etiology or PE. CT chest abd and pelvis was unremarkable. Troponin within normal limits. - narcan prn. continue tele. TTE performed but pending results, do not suspect an abnormal result at this time. - limit opiates for pain control, though she now has multiple non-displaced rib fractures as a result of CPR. 2. Symptomatic cholelithiasis. - US with large stone or mass in the gallbladder fundus. No evidence of cholecystitis. But patient's symptoms persist. ER consulted with general surgery and plans for OR tomorrow. - If TTE is okay, patient appears medically optimized. 3. Type 1 diabetes - Patient at home takes 13 U tresiba BID. Reduce to 10 U BID for now - okay for low fat diet, NPO at midnight. - sliding scale ordered - easily develops DKA, keep basal insulin on board. 4. GERD - continue omeprazole 5. bilateral hydronephrosis with urinary distension - no current symptoms, does have history of retention due to diabetic uropathy. Seen on CT imaging. - creatinine within normal limits. 6. Non-displaced rib fractures - as a result of CPR - continue pain control, incentive spirometry Surrogate: mother Code: Full Dispo: Admit as inpatient, will discharge home sometime after cholecystectomy, suspect tomorrow as OR will be later today. I have utilized all available immediate resources to obtain, update, or review the patient's current medications. COVID-19 COVID-19 status: Negative Time Spent With Patient Critical Care time: I spent a total of [] minutes of critical care time on this patient's care today; this time is exclusive of procedural time. Quality VTE Deep Vein Thrombosis/Pulmonary Embolism Present on Admission: No
--- NOTE | 2021-11-14 19:11 | DI.NM.S_ITS ---
PROCEDURE: NM GRECIA PERF SPECT R&S PHARM Rest and pharmacological stress myocardial perfusion SPECT with gated imaging and ejection fraction RADIOPHARMACEUTICAL: 8.0 mCi Tc-99m tetrafosmin IV at rest and 26.6 mCi Tc-99m tetrafosmin IV at peak effect of pharmacological stress. [id number] was performed. INDICATIONS: EF 40-45%, s/p likely respiratory arrest after CPR TECHNIQUE: Radiopharmaceutical was injected at peak stress test, and also at rest. SPECT images were obtained. SPECT myocardial perfusion images were displayed in short axis, horizontal long axis, and vertical long axis views. Gated images were reviewed using Instructure software. COMPARISON: None. CARDIAC STRESS: A pharmacologic stress test was performed under the supervision of an attending staff, using an infusion of Regadenoson. Hemodynamic data: There is normal blood pressure and heart rate response to pharmacologic stress. Symptoms: The patient denied anginal chest pain. Aminophylline: 50 mg IV. EKG: No diagnostic changes of ischemia; no ectopy. FINDINGS: Raw data: There is good myocardial uptake of radiotracer. No significant motion artifacts. Left ventricle function: Gated images demonstrate normal left ventricular wall thickening. No segmental wall motion abnormalities. No transient ischemic dilation; TID is 1.19 (normal less than 1.3). Left ventricle stress end diastolic volume is 91 mL. Left ventricle stress ejection fraction is 73%; normal range is above 45%. Myocardial perfusion: There is normal distribution of activity in the right and left ventricular myocardium. No fixed or reversible perfusion defects. IMPRESSION: No evidence of pharmacologic induced ischemia or scar. Dictated by: Orly Perry D.O. on 11/15/2021 at 16:40 Approved by: Orly Perry D.O. on 11/15/2021 at 16:44
[2021-11-14] MEDS: PANTOPRAZOLE DR 40 MG TABLET PO (20:08)
[2021-11-15] VITALS (10 sets, daily range): BP systolic 147–203; BP diastolic 97–125; PULSE 96–125; RESP 18–20; TEMP 35.9–36.6; O2SAT 95–99
[2021-11-15] MEDS: HYDROMORPHONE 0.5 MG INJ IV ×6 (00:01→20:47)
[2021-11-15] MEDS: ONDANSETRON 4 MG/2 ML INJ IV (02:32)
[2021-11-15] MEDS: KETOROLAC 30 MG/ML VIAL IV ×2 (04:26→12:41)
[2021-11-15 06:02] LABS: Add Manual Diff / Slide Review NO; Basophils Absolute Auto 100 /uL (0-100); Basophils Percent Auto 0.9 % (0-2); Eosinophils Absolute Auto 100 /uL (0-450); Eosinophils Percent Auto 1.4 % (2-4); Hematocrit 34.9 % (36-46); Hemoglobin 11.7 g/dL (12.0-16.0); Lymphocytes Absolute Auto 1000 /uL (1100-4500); Lymphocytes Percent Auto 12.1 % (25-40); Mean Corpuscular HGB Conc 33.5 % (30-36); Mean Corpuscular Hemoglobin 28.6 PG (26-34); Mean Corpuscular Volume 85.4 fL (80-100); Monocytes Absolute Auto 600 /uL (0-900); Monocytes Percent Auto 7.6 % (3-14); Neutrophils Absolute Auto 6400 /uL (1500-7000); Platelet Count 367 X10^3/uL (150-400); Red Blood Cell Count 4.09 X10^6/uL (4.0-5.2); Red Cell Distribution Width 17.3 % (11.6-14.8); White Blood Cell Count 8.2 X10^3/uL (4.5-11.0)
[2021-11-15 06:13] LABS: Alanine Aminotransferase 21 IU/L (<35); Albumin 2.8 g/dL (3.5-5.0); Alkaline Phosphatase 91 U/L (38-126); Aspartate Aminotransferase 21 IU/L (14-36); BUN Creatinine Ratio 56.6 (6-22); Bilirubin Total 0.2 mg/dL (0.2-1.3); Bilirubin Unconjugated 0.2 mg/dL (0.0-1.1); Blood Urea Nitrogen 30 mg/dL (7-17); Calcium 8.1 mg/dL (8.4-10.2); Carbon Dioxide 30 mmol/L (22-32); Chloride 103 mmol/L (98-107); Estimated Glomerular Filt Rate > 60 mL/min (>60); Globulin 2.7 g/dL (1.7-4.1); Glucose 260 mg/dL (70-100); HEMOLYSIS 27 (0-50); Potassium 4.2 mmol/L (3.4-5.1); Sodium 135 mmol/L (137-145); Total Protein 5.5 g/dL (6.3-8.2)
[2021-11-15] MEDS: INSULIN LISPRO 100 UNIT/ML 3ML VIAL SUBCUT ×4 (08:40→20:50)
[2021-11-15 09:50] LABS: Add Manual Diff / Slide Review NO; Basophils Absolute Auto 0 /uL (0-100); Basophils Percent Auto 0.6 % (0-2); Eosinophils Absolute Auto 100 /uL (0-450); Eosinophils Percent Auto 1.9 % (2-4); Hematocrit 38.3 % (36-46); Hemoglobin 12.6 g/dL (12.0-16.0); Lymphocytes Absolute Auto 1000 /uL (1100-4500); Lymphocytes Percent Auto 14.1 % (25-40); Mean Corpuscular HGB Conc 32.9 % (30-36); Mean Corpuscular Hemoglobin 28.6 PG (26-34); Mean Corpuscular Volume 86.7 fL (80-100); Monocytes Absolute Auto 700 /uL (0-900); Monocytes Percent Auto 9.2 % (3-14); Neutrophils Absolute Auto 5500 /uL (1500-7000); Neutrophils Percent Auto 74.2 % (50-75); Platelet Count 392 X10^3/uL (150-400); Red Blood Cell Count 4.41 X10^6/uL (4.0-5.2); Red Cell Distribution Width 17.4 % (11.6-14.8); White Blood Cell Count 7.4 X10^3/uL (4.5-11.0)
[2021-11-15 10:04] LABS: Alanine Aminotransferase 21 IU/L (<35); Albumin Globulin Ratio 1.1 (1.0-2.8); Alkaline Phosphatase 110 U/L (38-126); Aspartate Aminotransferase 20 IU/L (14-36); BUN Creatinine Ratio 50.9 (6-22); Bilirubin Total 0.2 mg/dL (0.2-1.3); Blood Urea Nitrogen 29 mg/dL (7-17); Calcium 8.4 mg/dL (8.4-10.2); Carbon Dioxide 28 mmol/L (22-32); Chloride 103 mmol/L (98-107); Estimated Glomerular Filt Rate > 60 mL/min (>60); Globulin 2.8 g/dL (1.7-4.1); Glucose 266 mg/dL (70-100); HEMOLYSIS < 15 (0-50); Potassium 4.2 mmol/L (3.4-5.1); Sodium 136 mmol/L (137-145); Total Protein 5.8 g/dL (6.3-8.2)
--- NOTE | 2021-11-15 12:50 | CM.DPNOTE ---
Discharge Planning Note: Met with mother Argelia today who is waiting for her daughter to return from stress test this afternoon. Patient did not have surgery yesterday and pending stress test results, she will/will not have lap choley, which the mother said could be at end of this week. Patient returned tearful from test. Plan: CM to continue to follow. Ashtyn Mandujano RN, DCP
[2021-11-15] MEDS: INSULIN GLARGINE 100 UNIT/ML 3ML PEN 10 UNIT SUBCUT ×2 (13:37→20:47)
[2021-11-15] MEDS: HYDROCODONE/ACET 5/325 TABLET 1 TAB PO (16:44)
--- NOTE | 2021-11-15 19:24 | PM.PN.1 ---
Subjective Subjective Date Patient Seen: 11/15/21 Interval history: Continues to have some abdominal and chest discomfort today. Some nausea but no emesis. Had difficulty lying flat. No events on telemetry review since admission. Exam Vital Signs (past 8 hours): - 11/15/21 13:00 11/15/21 16:21 11/15/21 18:08 Temperature 97.6 F 97.2 F L Pulse Rate 122 H 125 H Respiratory Rate 18 18 Blood Pressure 203/125 H 174/110 H Pulse Oximetry 99 97 95 Oxygen Delivery Method Room Air Oxygen Flow Rate 0 0 Oxygen Delivery Method Room Air Oxygen Flow Rate 0 Narrative Exam Narrative: General:? Patient is chronically ill appearing, pale female. Appears uncomfortable. HEENT:? Normocephalic, atraumatic, extraocular muscles intact, oral pharynx is clear and mucous membranes are moist. Neck: supple and symmetric, trachea is midline, no cervical adenopathy. Negative for JVD Chest:? Normal AP diameter and contour without kyphoscoliosis, no tachypnea, equal chest rise bilaterally. + tenderness. Lungs:? CTA b/l no wheezing rhonchi or rales. Cardio:?tachycardic with regular rhythm, no m/r/g. Abdomen: soft, non-distended. tenderness RUQ and epigastrium with minimal palpation. + murphys. Musculoskeletal:? Muscle strength and tone are equal within normal limits, no deformity. Extremities: No edema or joint effusions. No cyanosis or clubbing. Skin:? Pale,? Warm to touch,dry and intact without rashes, ulcerations or petechiae.? Neuro:? Alert and orientated x3,? sensation to touch intact in all extremities, no gross deficits noted of cranial nerves. Psych:? Patient has a well-kept appearance, appropriate affect, mental status attitude thought context and judgment are appropriate for age. Objective Labs Result Diagrams: 11/15/21 08:35 11/15/21 08:35 Labs: Laboratory Results - last 24 hr 11/15/21 11/15/21 11/15/21 05:36 05:36 08:35 WBC 8.2 7.4 RBC 4.09 4.41 Hgb 11.7 L 12.6 Hct 34.9 L 38.3 MCV 85.4 86.7 MCH 28.6 28.6 MCHC 33.5 32.9 RDW 17.3 H 17.4 H Plt Count 367 392 Neut % (Auto) 78.0 H 74.2 Lymph % (Auto) 12.1 L 14.1 L [place] % (Auto) 7.6 9.2 Eos % (Auto) 1.4 L 1.9 L Baso % (Auto) 0.9 0.6 Neut # (Auto) 6400 5500 Lymph # (Auto) 1000 L 1000 L [place] # (Auto) 600 700 Eos # (Auto) 100 100 Baso # (Auto) 100 0 Sodium 135 L Potassium 4.2 Chloride 103 Carbon Dioxide 30 BUN 30 H Creatinine 0.53 Estimated GFR > 60 BUN/Creatinine Ratio 56.6 H Glucose 260 H D Calcium 8.1 L Total Bilirubin 0.2 Conjugated Bilirubin 0.0 Unconjugated Bilirubin 0.2 AST 21 ALT 21 Alkaline Phosphatase 91 Total Protein 5.5 L Albumin 2.8 L Globulin 2.7 Albumin/Globulin Ratio 1.0 11/15/21 08:35 WBC RBC Hgb Hct MCV MCH MCHC RDW Plt Count Neut % (Auto) Lymph % (Auto) [place] % (Auto) Eos % (Auto) Baso % (Auto) Neut # (Auto) Lymph # (Auto) [place] # (Auto) Eos # (Auto) Baso # (Auto) Sodium 136 L Potassium 4.2 Chloride 103 Carbon Dioxide 28 BUN 29 H Creatinine 0.57 Estimated GFR > 60 BUN/Creatinine Ratio 50.9 H Glucose 266 H Calcium 8.4 Total Bilirubin 0.2 Conjugated Bilirubin Unconjugated Bilirubin AST 20 ALT 21 Alkaline Phosphatase 110 Total Protein 5.8 L Albumin 3.0 L Globulin 2.8 Albumin/Globulin Ratio 1.1 PFSH Medical History DKA (diabetic ketoacidoses) History of pyelonephritis Irregular menstrual cycle Migraine headache Nephrolithiasis Noncompliance w/medication treatment due to intermit use of medication Type 1 diabetes mellitus Surgical History History of ureter stent Hx of cataract surgery Hx of local excision of skin lesion Status post laser lithotripsy of ureteral calculus [place] teeth extracted Family History Father In good health Mother Cardiac disease Social History details: Engaged household members: significant other Smoking Status: Never smoker alcohol intake: never Assessment & Plan Assessment & Plan narrative: 31 F admitted with symptomatic cholelithiasis, admitted to medicine after uncertain arrest in the ER. 1. Unknown arrest s/p ROSC - suspect allergic reaction or respiratory arrest in the setting of opiate administration. - patient had approx 90 seconds of CPR with ROSC. No medications were given prior to ROSC. Was given narcan and benadryl / methylprednisolone after. - also possible QT prolongation with polypharmacy, though this is less likely. - unlikely cardiac etiology or PE. CT chest abd and pelvis was unremarkable. Troponin within normal limits. - narcan prn. continue tele. TTE with EF 40-45%. Discussed with cardiology whom recommended stress testing for further risk stratification prior to possible OR. Stress testing today was normal, stress EF was 75%. She is a low cardiac risk at this time. - limit opiates for pain control, though she now has multiple non-displaced rib fractures as a result of CPR. 2. Symptomatic cholelithiasis. - US with large stone or mass in the gallbladder fundus. No evidence of cholecystitis. But patient's symptoms persist. ER consulted with general surgery, initially surgery delayed given EF findings. Discussed with surgeon and anesthesia today, hopeful for cholecystectomy tomorrow. 3. Type 1 diabetes - Patient at home takes 13 U tresiba BID. Reduced to 10 U BID for now - okay for low fat diet, NPO at midnight. - sliding scale ordered - easily develops DKA, keep basal insulin on board. 4. GERD - continue omeprazole 5. bilateral hydronephrosis with urinary distension - no current symptoms, does have history of retention due to diabetic uropathy. Seen on CT imaging. - creatinine within normal limits. 6. Non-displaced rib fractures due to CPR - as a result of CPR - continue pain control, incentive spirometry Surrogate: mother Code: Full Dispo: Admit as inpatient, will discharge home sometime after cholecystectomy, suspect tomorrow as OR will be later today. I have utilized all available immediate resources to obtain, update, or review the patient's current medications. COVID-19 COVID-19 status: Negative Time Spent With Patient Critical Care time: I spent a total of [] minutes of critical care time on this patient's care today; this time is exclusive of procedural time. Quality VTE Deep Vein Thrombosis/Pulmonary Embolism Present on Admission: No
[2021-11-15] MEDS: TRAMADOL 50 MG TABLET PO (20:51)
[2021-11-15] MEDS: PANTOPRAZOLE DR 40 MG TABLET PO (20:51)
[2021-11-16] VITALS (21 sets, daily range): BP systolic 107–189; BP diastolic 70–116; PULSE 101–116; RESP 11–24; TEMP 36.1–36.9; O2SAT 92–100; BMI 18.8
--- NOTE | 2021-11-16 | PATH_ITS ---
[facility] Accession Number: [id number] . 01 Material submitted: . gallbladder - GALLBLADDER . 01 Diagnosis: Gallbladder, Cholecystectomy: Gallbladder with cholelithiasis. MRV 11/20/2021 0836 Local . 01 Electronically signed: . Noemi Guerrero MD, Pathologist NPI- [id number] . 01 Gross description: . Received in formalin in a specimen container, labeled with the patient's name and medical record number, gallbladder, is an intact gallbladder specimen with a stapled resection that measures 8 cm in length and 2.8 cm in diameter. The stapled resection margin measures 0.3 cm in diameter and is inked in blue. The serosal surface is pink, smooth, glistening. The specimen is opened to reveal multiple sand-like possible calculi ranging from 0.1 to 0.2 cm in diameter. The mucosal surface is slightly wrinkled and thin, velvety green. The average wall thickness is 0.1 cm. Territory Service Representative sections are submitted in cassette A1. ([id number]) /MRV 11/17/2021 1044 Local . 01 Pathologist provided ICD-10: K80.70 . 01 CPT . 177982 Specimen Comment: A courtesy copy of this report has been sent to [phone] Performed at: 01 [facility] [address] [place] [id number] MD Jesus William MD Phone: [phone]
[2021-11-16] MEDS: KETOROLAC 30 MG/ML VIAL IV ×2 (00:34→13:28)
[2021-11-16] MEDS: HYDROMORPHONE 0.5 MG INJ IV ×2 (00:34→04:24)
[2021-11-16] MEDS: ONDANSETRON 4 MG/2 ML INJ IV ×2 (02:46→18:28)
[2021-11-16 05:49] LABS: Add Manual Diff / Slide Review NO; Basophils Absolute Auto 0 /uL (0-100); Basophils Percent Auto 0.7 % (0-2); Eosinophils Absolute Auto 200 /uL (0-450); Eosinophils Percent Auto 2.7 % (2-4); Hematocrit 34.1 % (36-46); Hemoglobin 11.4 g/dL (12.0-16.0); Lymphocytes Absolute Auto 1300 /uL (1100-4500); Lymphocytes Percent Auto 19.1 % (25-40); Mean Corpuscular HGB Conc 33.4 % (30-36); Mean Corpuscular Hemoglobin 28.6 PG (26-34); Mean Corpuscular Volume 85.4 fL (80-100); Monocytes Absolute Auto 800 /uL (0-900); Monocytes Percent Auto 12.1 % (3-14); Neutrophils Absolute Auto 4300 /uL (1500-7000); Neutrophils Percent Auto 65.4 % (50-75); Platelet Count 335 X10^3/uL (150-400); Red Blood Cell Count 3.99 X10^6/uL (4.0-5.2); Red Cell Distribution Width 17.2 % (11.6-14.8); White Blood Cell Count 6.6 X10^3/uL (4.5-11.0)
[2021-11-16 06:00] LABS: Alanine Aminotransferase 16 IU/L (<35); Albumin 2.7 g/dL (3.5-5.0); Alkaline Phosphatase 84 U/L (38-126); Aspartate Aminotransferase 20 IU/L (14-36); BUN Creatinine Ratio 56.9 (6-22); Bilirubin Total 0.2 mg/dL (0.2-1.3); Bilirubin Unconjugated 0.2 mg/dL (0.0-1.1); Blood Urea Nitrogen 29 mg/dL (7-17); Calcium 8.1 mg/dL (8.4-10.2); Carbon Dioxide 30 mmol/L (22-32); Chloride 105 mmol/L (98-107); Estimated Glomerular Filt Rate > 60 mL/min (>60); Globulin 2.6 g/dL (1.7-4.1); Glucose 140 mg/dL (70-100); HEMOLYSIS 27 (0-50); Potassium 3.9 mmol/L (3.4-5.1); Sodium 136 mmol/L (137-145); Total Protein 5.3 g/dL (6.3-8.2)
[2021-11-16] MEDS: HYDROMORPHONE 0.5 MG INJ 0.7 MG IV ×4 (08:16→20:58)
[2021-11-16] MEDS: INSULIN GLARGINE 100 UNIT/ML 3ML PEN 10 UNIT SUBCUT ×2 (08:21→20:48)
--- NOTE | 2021-11-16 10:55 | CM.DPNOTE ---
DCP Note According to conversation w/Dr Weinberg in multidisciplinary rounds; patient scheduled for her lap skip this afternoon. Dr intends to discharge patient after procedure if patient tolerates well Home w/family to recover. No expected needs from this CM team JW
[2021-11-16] MEDS: DEXTROSE PO (13:19)
[2021-11-16] MEDS: DEXTROSE 10 % IN WATER 1,000 ML 125 ML IV (13:51)
--- NOTE | 2021-11-16 15:51 | PC.NURSE ---
Day shift: Pt off unit for surgery at approx 1555. Off tele and [employer] made aware. SL also. Pt's Mother in room also.
--- NOTE | 2021-11-16 15:57 | P.PN_ITS ---
Subjective Subjective Date Patient Seen: 11/16/21 Interval history: Continues to have some abdominal discomfort today, improves without meals. Some nausea but no emesis. Had difficulty lying flat. No events on telemetry review since admission. Exam Vital Signs (past 8 hours): - 11/16/21 08:00 11/16/21 09:30 11/16/21 10:17 Temperature 97.0 F L Pulse Rate 112 H 111 H Respiratory Rate 18 Blood Pressure 189/115 H 183/115 H Pulse Oximetry 98 98 Oxygen Delivery Method Room Air Oxygen Flow Rate 0 11/16/21 13:33 11/16/21 14:00 Temperature 97.4 F L Pulse Rate 116 H Respiratory Rate 18 Blood Pressure 184/116 H Pulse Oximetry 98 98 Oxygen Delivery Method Room Air Oxygen Flow Rate 0 Oxygen Delivery Method Room Air Oxygen Flow Rate 0 Narrative Exam Narrative: General:? Patient is chronically ill appearing, pale female. Appears uncomfortable. HEENT:? Normocephalic, atraumatic, extraocular muscles intact, oral pharynx is clear and mucous membranes are moist. Neck: supple and symmetric, trachea is midline, no cervical adenopathy. Negative for JVD Chest:? Normal AP diameter and contour without kyphoscoliosis, no tachypnea, equal chest rise bilaterally. + tenderness. Lungs:? CTA b/l no wheezing rhonchi or rales. Cardio:?tachycardic with regular rhythm, no m/r/g. Abdomen: soft, non-distended. tenderness RUQ and epigastrium with minimal palpation. + murphys. Musculoskeletal:? Muscle strength and tone are equal within normal limits, no deformity. Extremities: No edema or joint effusions. No cyanosis or clubbing. Skin:? Pale,? Warm to touch,dry and intact without rashes, ulcerations or petechiae.? Neuro:? Alert and orientated x3,? sensation to touch intact in all extremities, no gross deficits noted of cranial nerves. Psych:? Patient has a well-kept appearance, appropriate affect, mental status attitude thought context and judgment are appropriate for age. Objective Labs Result Diagrams: 11/16/21 05:23 11/16/21 05:23 Labs: Laboratory Results - last 24 hr 11/16/21 11/16/21 05:23 05:23 WBC 6.6 RBC 3.99 L Hgb 11.4 L Hct 34.1 L MCV 85.4 MCH 28.6 MCHC 33.4 RDW 17.2 H Plt Count 335 Neut % (Auto) 65.4 Lymph % (Auto) 19.1 L [place] % (Auto) 12.1 Eos % (Auto) 2.7 Baso % (Auto) 0.7 Neut # (Auto) 4300 Lymph # (Auto) 1300 [place] # (Auto) 800 Eos # (Auto) 200 Baso # (Auto) 0 Sodium 136 L Potassium 3.9 Chloride 105 Carbon Dioxide 30 BUN 29 H Creatinine 0.51 L Estimated GFR > 60 BUN/Creatinine Ratio 56.9 H Glucose 140 H D Calcium 8.1 L Total Bilirubin 0.2 Conjugated Bilirubin 0.0 Unconjugated Bilirubin 0.2 AST 20 ALT 16 Alkaline Phosphatase 84 Total Protein 5.3 L Albumin 2.7 L Globulin 2.6 Albumin/Globulin Ratio 1.0 PFSH Medical History DKA (diabetic ketoacidoses) History of pyelonephritis Irregular menstrual cycle Migraine headache Nephrolithiasis Noncompliance w/medication treatment due to intermit use of medication Type 1 diabetes mellitus Surgical History History of ureter stent Hx of cataract surgery Hx of local excision of skin lesion Status post laser lithotripsy of ureteral calculus [place] teeth extracted Family History Father In good health Mother Cardiac disease Social History details: Engaged household members: significant other Smoking Status: Never smoker alcohol intake: never Assessment & Plan Assessment & Plan narrative: 31 F admitted with symptomatic cholelithiasis, admitted to medicine after uncertain arrest in the ER. 1. Unknown arrest s/p ROSC - suspect allergic reaction or respiratory arrest in the setting of opiate administration. - patient had approx 90 seconds of CPR with ROSC. No medications were given prior to ROSC. Was given narcan and benadryl / methylprednisolone after. - also possible QT prolongation with polypharmacy, though this is less likely. - unlikely cardiac etiology or PE. CT chest abd and pelvis was unremarkable. Troponin within normal limits. - narcan prn. continue tele. TTE with EF 40-45%. Discussed with cardiology whom recommended stress testing for further risk stratification prior to possible OR. Stress testing today was normal, stress EF was 75%. She is a low cardiac risk at this time. - limit opiates for pain control, though she now has multiple non-displaced rib fractures as a result of CPR. 2. Symptomatic cholelithiasis. - US with large stone or mass in the gallbladder fundus. No evidence of cholecystitis. But patient's symptoms persist. ER consulted with general surgery, initially surgery delayed given EF findings. plan for OR today. 3. Type 1 diabetes - Patient at home takes 13 U tresiba BID. Reduced to 10 U BID for now. She developed some hypoglycemia today, improved with small amount of honey and glucagon. Continued on D10 until surgery. - okay for low fat diet, NPO at midnight. - sliding scale ordered - easily develops DKA, keep basal insulin on board. 4. GERD - continue omeprazole 5. bilateral hydronephrosis with urinary distension - no current symptoms, does have history of retention due to diabetic uropathy. Seen on CT imaging. - creatinine within normal limits. 6. Non-displaced rib fractures due to CPR - as a result of CPR - continue pain control, incentive spirometry Surrogate: mother Code: Full Dispo: Admit as inpatient, will discharge home likely tomorrow after late OR case today. I have utilized all available immediate resources to obtain, update, or review the patient's current medications. COVID-19 COVID-19 status: Negative Time Spent With Patient Critical Care time: I spent a total of [] minutes of critical care time on this patient's care today; this time is exclusive of procedural time. Quality VTE Deep Vein Thrombosis/Pulmonary Embolism Present on Admission: No
--- NOTE | 2021-11-16 16:30 | PM.PREOP ---
Pre-operative Note COVID-19 COVID-19 status: Negative Result date/Date tested (Pos, Neg/Pending): 11/16/21 Interval Note History & Physical reviewed/Exam performed by Physician: Yes Changes to H&P: No ASA Class (for procedural sedation): III
[2021-11-16] MEDS: LACTATED RINGERS 1,000 ML 42 ML IV ×2 (16:44→18:48)
[2021-11-16] MEDS: CEFAZOLIN 2 GM/20 ML SYRINGE IV (16:59)
--- NOTE | 2021-11-16 17:17 | SUR.OPER ---
Supine on padded OR bed, head on pillow, arms secured on padded arm boards at <90 degrees abduction, legs uncrossed, safety belt at thigh, tape over blanket over lower legs, footboard in place with towels to support heels.
--- NOTE | 2021-11-16 18:00 | PC.NURSE ---
Day shift: Pt remains off AC unit at this time (1800).
--- NOTE | 2021-11-16 18:24 | PM.OP.1 ---
Operative Date/Time/Diagnoses Date of procedure: 11/16/21 Time of procedure: 18:25 Pre-op diagnosis: Cholelithiasis Post-op diagnosis: same Procedure & Clinicians Procedure: Laparoscopic cholecystectomy Same procedure as scheduled: Yes Surgeon: Cricket Tillman Anesthesia Type: General Operative Notes Procedure in detail: The patient was given preoperative antibiotic. The patient was brought to the operating room, placed on the table in the supine position. General endotracheal anesthesia was induced. The abdomen was prepped and draped. A time-out was performed. We made a 1 cm infraumbilical incision. We dissected down to the base of the umbilical stalk using cautery. We grasped the umbilical stalk with a Olvin clamp to elevate the abdominal wall. We scored the fascia in the midline with cautery 1 cm. We pierced the peritoneum with a Peon clamp. The Lisa port was placed and the abdomen was insufflated to 15 mmHg. A 5 mm 30 degree laparoscopic was inserted. There was no evidence of any injury from the entry. Next, we placed 5 mm ports in the subxiphoid position and right upper quadrant at the midclavicular line and anterior axillary line. Patient was then positioned in reverse Trendelenburg and the table was tilted to the left. The gallbladder was grasped at the dome and retracted cephalad. There were some adhesions of mesenteric tissue to the right liver which were carefully dissected with cautery to allow full retraction of the gallbladder. We then dissected the cystic structures with a combination of hook cautery and blunt dissection. We obtained a critical view. We placed clips on the cystic duct and artery and divided the cystic duct and artery sharply between the clips. The gallbladder was then dissected off the liver and placed in a specimen retrieval bag. We irrigated the right upper quadrant and all the aspirate returned clear. We then removed the 5 mm ports under direct vision we removed the Lisa port. We then injected some local into the fascia and closed the fascia with 2 interrupted 0 Vicryl sutures. The skin incisions were closed with 4 Monocryl and Steri-Strips were applied. Band-Aids were applied over the Steri-Strips. EBL: 10 mL Specimen: Gallbladder Post-operative Condition: stable Disposition: PACU
[2021-11-16] MEDS: HYDROMORPHONE 2 MG INJ IV ×2 (18:40→18:55)
[2021-11-16] MEDS: fentaNYL 100 MCG/2 ML INJ IV ×2 (18:40→18:55)
--- NOTE | 2021-11-16 18:59 | SUR.PHASEI ---
Patient resting more comfortably now and speaking to nurse. BP 172/112 but hypertensive at baseline.
[2021-11-16] MEDS: OXYCODONE/ACETAMINOPHEN 5/325 TABLET 1 TAB PO (19:45)
[2021-11-16] MEDS: PANTOPRAZOLE DR 40 MG TABLET PO (21:05)
[2021-11-17] VITALS (12 sets, daily range): BP systolic 118–171; BP diastolic 65–109; PULSE 102–115; RESP 16–20; TEMP 36.2–37; O2SAT 94–99
[2021-11-17] MEDS: HYDROMORPHONE 0.5 MG INJ 0.7 MG IV ×9 (00:51→23:41)
[2021-11-17] MEDS: KETOROLAC 30 MG/ML VIAL IV ×2 (03:45→11:51)
[2021-11-17] MEDS: ONDANSETRON 4 MG/2 ML INJ IV (03:45)
--- NOTE | 2021-11-17 03:49 | PC.NURSE ---
Walked into patient's room to them finishing a grilled cheese sandwich, informed patient of clear liquid diet order and the consequences of eating solid food at this stage of post-operative status. Patient stated Dr. Tillman told them they could have their normal diabetic diet after surgery. Clear liquid diet order does not have advance as tolerated under details. Patient appeared to tolerate their sandwich, but will adhere to clear liquid diet until day shift can clarify.
[2021-11-17] MEDS: TRAMADOL 50 MG TABLET PO (05:22)
[2021-11-17] MEDS: DEXTROSE 10 % IN WATER 250 ML 999 ML IV (05:46)
[2021-11-17] MEDS: HYDROMORPHONE 4 MG TABLET PO ×2 (08:18→11:51)
[2021-11-17] MEDS: INSULIN GLARGINE 100 UNIT/ML 3ML PEN 10 UNIT SUBCUT ×2 (09:03→20:43)
[2021-11-17] MEDS: INSULIN LISPRO 100 UNIT/ML 3ML VIAL SUBCUT ×3 (12:15→20:44)
--- NOTE | 2021-11-17 15:36 | PM.PN.1 ---
Subjective Subjective Date Patient Seen: 11/17/21 Interval history: POD#1 s/p laparoscopic skip with surgery today. Doing well but still requiring IV pain medications. Has a band like pain over her stomach. Increased oral frequency and changed to oral dilaudid with IV for breakthrough. Exam Vital Signs (past 8 hours): - 11/17/21 07:55 11/17/21 08:48 11/17/21 13:19 Temperature 97.2 F L Pulse Rate 110 H Respiratory Rate 20 Blood Pressure 153/108 H Pulse Oximetry 99 97 97 Oxygen Delivery Method Room Air Room Air Oxygen Flow Rate 1.5 Oxygen Delivery Method Room Air Oxygen Flow Rate 1.5 Narrative Exam Narrative: General:? Patient is chronically ill appearing, pale female. Appears uncomfortable. HEENT:? Normocephalic, atraumatic, extraocular muscles intact, oral pharynx is clear and mucous membranes are moist. Neck: supple and symmetric, trachea is midline, no cervical adenopathy. Negative for JVD Chest:? Normal AP diameter and contour without kyphoscoliosis, no tachypnea, equal chest rise bilaterally. + tenderness. Lungs:? CTA b/l no wheezing rhonchi or rales. Cardio:?tachycardic with regular rhythm, no m/r/g. Abdomen: soft, non-distended. appropriate tenderness over incisions, bandages in place and are c/d/i. Musculoskeletal:? Muscle strength and tone are equal within normal limits, no deformity. Extremities: No edema or joint effusions. No cyanosis or clubbing. Skin:? Pale,? Warm to touch,dry and intact without rashes, ulcerations or petechiae.? Neuro:? Alert and orientated x3,? sensation to touch intact in all extremities, no gross deficits noted of cranial nerves. Psych:? Patient has a well-kept appearance, appropriate affect, mental status attitude thought context and judgment are appropriate for age. Objective Labs Result Diagrams: 11/16/21 05:23 11/16/21 05:23 [facility] Medical History DKA (diabetic ketoacidoses) History of pyelonephritis Irregular menstrual cycle Migraine headache Nephrolithiasis Noncompliance w/medication treatment due to intermit use of medication Type 1 diabetes mellitus Surgical History History of ureter stent Hx of cataract surgery Hx of local excision of skin lesion Status post laser lithotripsy of ureteral calculus [place] teeth extracted Family History Father In good health Mother Cardiac disease Social History details: Engaged household members: significant other Smoking Status: Never smoker alcohol intake: never Assessment & Plan Assessment & Plan narrative: 31 F admitted with symptomatic cholelithiasis, admitted to medicine after uncertain arrest in the ER. 1. Unknown arrest s/p ROSC - suspect allergic reaction or respiratory arrest in the setting of opiate administration. - patient had approx 90 seconds of CPR with ROSC. No medications were given prior to ROSC. Was given narcan and benadryl / methylprednisolone after. - also possible QT prolongation with polypharmacy, though this is less likely. - unlikely cardiac etiology or PE. CT chest abd and pelvis was unremarkable. Troponin within normal limits. - narcan prn. continue tele. TTE with EF 40-45%. Discussed with cardiology whom recommended stress testing for further risk stratification prior to possible OR. Stress testing today was normal, stress EF was 75%. She is a low cardiac risk at this time. - limit opiates for pain control, though she now has multiple non-displaced rib fractures as a result of CPR. 2. Symptomatic cholelithiasis. - US with large stone or mass in the gallbladder fundus. No evidence of cholecystitis. But patient's symptoms persist. ER consulted with general surgery, initially surgery delayed given EF findings. - s/p lap skip on 11/16. Issues with pain control today, hopeful for discharge home tomorrow. 3. Type 1 diabetes - Patient at home takes 13 U tresiba BID. Reduced to 10 U BID for now. She developed some hypoglycemia today, improved with small amount of honey and glucagon. Continued on D10 until surgery. - okay for diabetic diet. sugars have been controlled today, may need to decrease depending on trend, currently holding mealtime coverage as well and glucose has been controlled. - sliding scale ordered 4. GERD - continue omeprazole 5. bilateral hydronephrosis with urinary distension - no current symptoms, does have history of retention due to diabetic uropathy. Seen on CT imaging. - creatinine within normal limits. - no further management needed at this time. 6. Non-displaced rib fractures due to CPR - as a result of CPR - continue pain control, incentive spirometry Surrogate: mother Code: Full Dispo: Admit as inpatient, will discharge home likely tomorrow after late OR case today. I have utilized all available immediate resources to obtain, update, or review the patient's current medications. COVID-19 COVID-19 status: Negative Time Spent With Patient Critical Care time: I spent a total of [] minutes of critical care time on this patient's care today; this time is exclusive of procedural time. Quality VTE Deep Vein Thrombosis/Pulmonary Embolism Present on Admission: No
[2021-11-17] MEDS: SODIUM CHLORIDE 0.9% FLUSH 10 ML IV ×3 (17:49→23:42)
[2021-11-17] MEDS: PANTOPRAZOLE DR 40 MG TABLET PO (20:46)
[2021-11-18] VITALS: O2SAT 96
[2021-11-18] MEDS: HYDROMORPHONE 1 MG INJ 0.7 MG IV ×2 (03:02→05:49)
[2021-11-18] MEDS: SODIUM CHLORIDE 0.9% FLUSH 10 ML IV ×4 (03:03→08:57)
[2021-11-18 05:54] VITALS: O2SAT 94
[2021-11-18] MEDS: KETOROLAC 30 MG/ML VIAL IV (05:58)
[2021-11-18 06:00] VITALS: BP 164/107; PULSE 116; RESP 22; TEMP 36.2; O2SAT 95
--- NOTE | 2021-11-18 06:55 | PC.NURSE ---
Pt. been requesting IVP Dilaudid, states the Diluadid pills does not helped my pain. She been crying every time she wants her pain medication. She falls asleep after i administered her pain meds. Will report to day RN & monitor.
[2021-11-18 08:00] VITALS: BP 173/109; PULSE 112; RESP 18; TEMP 36.4; O2SAT 95
[2021-11-18] MEDS: HYDROMORPHONE 0.5 MG INJ IV (08:35)
[2021-11-18] MEDS: TRAMADOL 50 MG TABLET PO (08:36)
[2021-11-18] MEDS: methocarbamoL 500 MG TABLET PO (08:36)
[2021-11-18] MEDS: SENNOSIDES 8.6 MG TABLET PO (08:37)
[2021-11-18] MEDS: INSULIN LISPRO 100 UNIT/ML 3ML VIAL SUBCUT ×2 (08:41→12:21)
[2021-11-18] MEDS: INSULIN GLARGINE 100 UNIT/ML 3ML PEN 10 UNIT SUBCUT (08:46)
[2021-11-18 09:00] VITALS: O2SAT 95
[2021-11-18] MEDS: HYDROMORPHONE 4 MG TABLET PO (12:18)
--- NOTE | 2021-11-18 12:42 | CM.DPNOTE ---
Discharge Planning Note: Patient discharging today. Remains tearful at times and is being medicated for post op pain. Mother Argelia in room. She is being readied for discharge. Arranged BLS transport due to mother states patient cannot climb stairs due to her recent pelvic fracture. BLS to arrive at 1 pm. Notified staff earlier. BLS form placed in slot. Ashtyn Mandujano RN, DCP
--- NOTE | 2021-11-18 13:17 | P.DS_ITS ---
History of Present Illness History of Present Illness Date Patient Seen: 11/18/21 Chief complaint: Gen Weak, +gallstones Narrative: Per admission history and physical: This is a 31-year-old female well known to the hospitalist service with a history of type 1 diabetes and frequent admissions for DKA who has been evaluated in the emergency room multiple visits over the past month for were quadrant abdominal pain.? Seen most recently 5 days ago and recommended for outpatient follow-up with General surgery for cholecystectomy.? Her symptoms had not improved, which include right upper quadrant abdominal pain that is sharp.? She states that there is no radiation, and antacids do not help with her symptoms.? It does seemingly get worse with meals, but only sometimes.? She has been unable to eat much over the past couple of days due to continued nausea.? She denies any emesis currently, but states that she had a few episodes of diarrhea overnight.? Patient was given Zofran and Dilaudid by EMS, and another dose of Dilaudid a few hours later in the emergency room.? Approximately 20-30 minutes after her dose of pain medications, the patient had a code blue called in the emergency room.? The patient has no recollection of the event.? Her mother was present E episode and stated that the patient was asleep but then was gasping and her fingers were blue.? Patient's mother ran out to get attention and a code blue was called.? CPR was performed, no medications were given and patient had Rosc within 90 seconds.? Glucose was within normal limits and she was not hypoglycemic.? She did receive Benadryl and narcan but after ROSC had been achieved. The patient currently complains of chest discomfort, as well as her right upper quadrant pain but otherwise denies shortness of breath, cough, fever, chills, lower extremity swelling.? EKG formed after CPR showed sinus tachycardia, troponin was within normal limits at 0.013. Given presentation, patient admitted to medicine for further management with general surgery consultation. Discharge Providers Provider Date of admission: 11/13/21 14:34 Discharge Date: 11/18/21 Primary care physician: Maria Ines Limon DO Consults: 11/13/21 15:47 Consult to General Surgery Routine Comment: Consulting Provider: Cricket Tillman Reason for consultation: symptomatic cholelithiasis Discharge provider: Janis Mancuso MD Summary Hospital Course Discharge Diagnosis: Postoperative day 2 from laparoscopic cholecystectomy for symptomatic c holelithiasis Postop cardiopulmonary arrest times 90 seconds with CPR and return of spontaneous circulation Type 1 diabetes, uncontrolled with hyperglycemia, with hemoglobin A1c of 8.3% this admission GERD Bilateral hydronephrosis with urinary distention Nondisplaced rib fracture due to CPR-ruled out Hospital Course: Patient presented to the emergency department on the date of admission for ongoing difficulties with abdominal pain. She had multiple visits to the emergency department over the last month with the same complaint. She was found to have cholelithiasis and was supposed to have outpatient follow-up with General surgery. However on the date of admission she presented to the ER for ongoing pain complaints. She had been complaining of worsening nausea. EMS gave her Dilaudid and Zofran. She received a 2nd dose of Dilaudid in the emergency department several hours later. 20 minutes or so after her pain medication, her mother noted an acute change with patient's gasping and her fingers becoming cyanotic. A code blue was called. Patient received CPR, no meds were required, and she had return of spontaneous circulation. CT was initially read as significant for rib sugars, but then amended to show there wer e no displaced rib fractures. Mild bilateral hydronephrosis was seen. Mild generalized body wall edema was noted. Head CT revealed no acute intracranial hemorrhage or other abnormality. General surgery was consulted for cholelithiasis. Echocardiogram was done which revealed an EF of 40-45% with global hypokinesis. Cardiology was subsequently contacted with recommendations for a nuclear stress test. This was completed on November 14 which showed no evidence of pharmacologic induced ischemia or scar. LVEF was 73%. It was felt that her transient global hypokinesis was secondary to the stress of her arrest. Patient subsequently underwent an uncomplicated laparoscopic cholecystectomy on November 16. Postoperatively, she has continued to have significant anxiety, complaining of pain which is uncontrolled with oral medications. She had frequent requests for IV Dilaudid. On postop day 2, patient expressed a desire to discharge home. She was noted to have constipation but declined treatment. She was transition to oral pain medication. She is discharged in stable condition. She is getting discharged with BLS transfer as she is unable to navigate the stairs to her home. Status at Discharge Cognitive/behavioral status at discharge: at baseline, oriented Overall status at discharge: patient is progressing back to baseline Time Spent with Patient Time spent: Greater than 30 minutes Exam Vital Signs (past 8 hours): - 11/18/21 05:54 11/18/21 06:00 11/18/21 08:00 Temperature 97.1 F L 97.6 F Pulse Rate 116 H 112 H Respiratory Rate 22 18 Blood Pressure 164/107 H 173/109 H Pulse Oximetry 94 95 95 Oxygen Delivery Method Room Air Oxygen Flow Rate 0 0 Oxygen Delivery Method Room Air Oxygen Flow Rate 0 Narrative Exam Narrative: GEN: Adult female, crying and tearful, anxious HEENT:NC, Face symmetric CHEST: Respiratory excursions symmetric, CTAB CV: RRR, no M/R/G ABD: Soft, diffusely tender to palpation, nondistended, BT present in all 4 quadrants, no organomegaly or masses EXTR: warm, well perfused, no C/C/E SKIN: warm and dry, no rash NEURO: Alert and oriented x 3, nonfocal Objective Labs Result Diagrams: 11/16/21 05:23 11/16/21 05:23 [facility] Medical History DKA (diabetic ketoacidoses) History of pyelonephritis Irregular menstrual cycle Migraine headache Nephrolithiasis Noncompliance w/medication treatment due to intermit use of medication Type 1 diabetes mellitus Surgical History History of ureter stent Hx of cataract surgery Hx of local excision of skin lesion Status post laser lithotripsy of ureteral calculus [place] teeth extracted Family History Father In good health Mother Cardiac disease Social History details: Engaged household members: significant other Smoking Status: Never smoker alcohol intake: never Discharge Plan Discharge Plan Patient Disposition: Home Provider Discharge Comment: Continue to work on managing your anxiety Check your blood sugars four times daily Get up and walk at least three times a day and increase your activity back to normal in the next 24 hrs Follow-up with your surgeon in 7-10 days Take over the counter bowel meds (senna or miralax) daily until you are off the the pain medications and moving your bowels regularly Discharge orders & Medications Prescriptions: New acetaminophen 325 mg Tablet 975 mg PO Q8H Qty: 30 0RF tramadol 50 mg Tablet 50 mg PO Q4H PRN (Reason: Pain, Moderate (4-6)) Qty: 15 0RF hydromorphone 2 mg Tablet 2 mg PO Q4HR PRN (Reason: Pain, Moderate (4-6)) Qty: 10 0RF naloxone [Narcan] 4 mg/actuation spray,non-aerosol 1 spray intranasal Q2M Qty: 2 0RF Rx Instructions: spray 1 dose into ONE nostril; alternate nostrils w each dose until help arrives Continued glucose 4 gram tablet,chewable 4 gram PO Q15M PRN (Reason: hypoglycemia) Qty: 30 0RF Rx Instructions: until response Glucagon Emergency Kit (human) 1 mg recon soln 1 mg subcut DIRECTED ondansetron 4 mg tablet,disintegrating 4 mg PO Q8H PRN (Reason: nausea and vomiting) Qty: 10 0RF diphenhydramine HCl 50 mg Capsule 50 mg PO BEDTIME PRN (Reason: Sleep) Rx Instructions: for itching and sleep insulin aspart U-100 [Novolog Flexpen U-100 Insulin] 100 unit/mL (3 mL) insulin pen See Rx Instructions .ROUTE .COMPLEX Label Comments: Inject 7-20 Units under the skin 3 (three) times a day with meals SLIDING scale Rx Instructions: 7-10 units at meals using sliding scale pantoprazole 40 mg tablet,delayed release (DR/EC) 40 mg PO BEDTIME Label Comments: TAKE ONE TABLET BY MOUTH ONE TIME DAILY Tresiba FlexTouch U-200 200 unit/mL (3 mL) insulin pen 13 ea SUBCUT BID methocarbamol 500 mg tablet 1 tab PO TID Label Comments: TAKE ONE TO TWO TABLETS BY MOUTH THREE TIMES DAILY NEEDED FOR MUSCLE SPASMS sennosides [senna] 8.6 mg Tablet 8.6 mg PO DAILY Discontinued hydrocodone-acetaminophen 5-325 mg tablet 1 tab PO TID Label Comments: Take 1 tablet by mouth every 8 (eight) hours as needed for moderate pain for up to 14 days Medication counseling provided by Pharmacist: No Follow up/Referrals: Maria Ines Limon DO [Primary Care Provider] - Diet/Activity/Treatments Diet: Carb-consistent/Diabetic Activity: As tolerated, walk at least three times daily Oxygen: N/A Other treatments: Resume previous Home Health orders; BLS transport home Visit Report/Discharge Packet Instructions: Eating a Diet Low in Saturated Fat, Trans Fat, and Cholesterol, G allstones, DI for Laparoscopy, DI for Prescription Opioid Use, [facility]: Wound Care Stand Alone Forms: Surgery Discharge Discharge Data Primary Care Provider: Maria Ines Limon VTE Deep Vein Thrombosis/Pulmonary Embolism Present on Admission: No
--- NOTE | 2021-11-18 15:11 | PC.NURSE ---
Pt AOx4. Was anxious and emotional this morning. Pain 8/10 in back and abdomen. Received one morning dose of IV dilaudid in the AM. Pt hasn 't had a bowel movement today. After discussing it with Dr. Mancuso, pt can be discharged home to have bowel movement because she declined other hospital interventions offered. She declined suppository and milk of magnesia. Pt was given discharge instructions and prescriptions. tele monitor was removed. IV removed, intact. VS stable. EMS arrived to take her home at 1300.
== END 2021-11-18 13:00 | disposition home or self-care (01) | DRG 263 ==
LOC: ED 13:15 → AC 14:47
PROVIDERS: Surgery; Admitting Provider Internal Medicine; Emergency Provider Emergency Medicine; PCP Student in an Organized Health Care Education/Training Program; Referring Provider Emergency Medicine; Visit Provider Internal Medicine
PROC: 0FT44ZZ Resection of Gallbladder, Percutaneous Endoscopic Approach (ICD-10-PCS; CPT 47562; principal; 2021-11-16 15:30)
DX: K80.20 Calculus of gallbladder without cholecystitis without obstruction (principal); I46.9 Cardiac arrest, cause unspecified; K21.9 Gastro-esophageal reflux disease without esophagitis; E10.65 Type 1 diabetes mellitus with hyperglycemia; N13.30 Unspecified hydronephrosis; Z20.822 Contact with and (suspected) exposure to COVID-19; Z79.4 Long term (current) use of insulin
CPT/HCPCS: 47562; 36415; 70450; 71260; 74177; 76705; 78452; 80048; 80053; 80076; 81003; 81015; 81025; 82009; 82550; 82962; 83036; 83605; 83690; 84145; 84484; 85025; 87040; 87635; 92950; 93005; 93017; 93306; 96374; 96375; 96376; 99233; 99284; 99285; 99291; 99292; C9803; G0378; A9502; J0690; J1170; J1200; J1815; J1885; J2250; J2310; J2405; J2704; J2785; J2930; J3010

== ENCOUNTER 2021-12-09 10:57 | Emergency (ER) | payer OTHER, MEDICAID, SELFPAY ==
[2021-11-13 14:44] VITALS: BMI 18.8
[2021-12-09 11:18] VITALS: BP 143/95; PULSE 108; RESP 15; TEMP 35.9; O2SAT 98; BMI 19.8
--- NOTE | 2021-12-09 11:55 | ED_ITS ---
HPI - Skin/Abscess/Foreign Bdy General Chief complaint: Skin/Abscess/Foreign Body Stated complaint: Painul lumps on right side of neck Time Seen by Provider: 12/09/21 11:51 Source: patient Mode of arrival: Wheelchair Limitations: no limitations Related Data Home Medications Medication Instructions Recorded Confirmed glucagon (human recombinant) 1 mg 1 mg SUBCUT DIRECTED 02/16/19 11/29/21 solution for injection (Glucagon Emergency Kit) diphenhydramine HCl 50 mg capsule 50 mg PO BEDTIME PRN Sleep 09/29/20 11/29/21 insulin aspart U-100 100 unit/mL See Rx Instructions .Route .COMPLEX 11/13/21 11/29/21 (3 mL) subcutaneous pen (Novolog Flexpen U-100 Insulin aspart) insulin degludec 200 unit/mL (3 13 ea SUBCUT BID 11/13/21 11/29/21 mL) subcutaneous pen (Tresiba FlexTouch U-200 insulin) methocarbamol 500 mg tablet 1 tab PO TID 11/13/21 11/29/21 pantoprazole 40 mg tablet,delayed 40 mg PO BEDTIME 11/13/21 11/29/21 release sennosides 8.6 mg tablet (senna) 8.6 mg PO DAILY 11/13/21 11/29/21 Previous Rx's Medication Instructions Recorded glucose 4 gram chewable tablet 4 gram PO Q15M PRN hypoglycemia 12/12/18 #30 tabs ondansetron 4 mg disintegrating 4 mg PO Q8H PRN nausea and 11/08/21 tablet vomiting #10 tabs acetaminophen 325 mg tablet 975 mg PO Q8H #30 tabs 11/18/21 hydromorphone 2 mg tablet 2 mg PO Q4HR PRN Pain, Moderate 11/18/21 (4-6) #10 tabs naloxone 4 mg/actuation nasal 1 spray intranasal Q2M #2 ea 11/18/21 spray (Narcan) tramadol 50 mg tablet 50 mg PO Q4H PRN Pain, Moderate 11/18/21 (4-6) #15 tabs Allergies Allergy/AdvReac Type Severity Reaction Status Date / Time abdalla [ABDALLA] Allergy Intermediate Hives, Verified 12/09/21 11:18 pruritus iodine [IODINE] Allergy Intermediate rash, itchy Verified 12/09/21 11:18 morphine Allergy Intermediate Difficulty Verified 12/09/21 11:18 Breathing shellfish derived Allergy Intermediate rash Verified 12/09/21 11:18 [SHELLFISH DERIVED] adhesive [ADHESIVE] Allergy Unknown tape Verified 12/09/21 11:18 latex [LATEX] Allergy Unknown Hives Verified 12/09/21 11:18 Patient History Medical History DKA (diabetic ketoacidoses) History of pyelonephritis Irregular menstrual cycle Migraine headache Nephrolithiasis Noncompliance w/medication treatment due to intermit use of medication Type 1 diabetes mellitus Surgical History History of ureter stent Hx of cataract surgery Hx of local excision of skin lesion Status post laser lithotripsy of ureteral calculus [place] teeth extracted Family History Father In good health Mother Cardiac disease Social History details: Engaged household members: significant other Smoking Status: Never smoker alcohol intake: never Smoking Status: Never smoker alcohol intake frequency: holidays/special occasions only Substance Use Type: does not use Exam Initial Vital Signs Initial Vital Signs: Vital Signs Temperature 96.7 F L 12/09/21 11:18 Pulse Rate 108 H 12/09/21 11:18 Respiratory Rate 15 12/09/21 11:18 Blood Pressure 143/95 H 12/09/21 11:18 Pulse Oximetry 98 12/09/21 11:18 Oxygen Delivery Method 12/09/21 11:18 Course Vital Signs Vital signs: Vital Signs - 8 hr 12/09/21 11:18 Temperature 96.7 F L Pulse Rate 108 H Respiratory Rate 15 Blood Pressure 143/95 H Pulse Oximetry 98 Oxygen Delivery Method Room Air Discharge Plan Departure Prescriptions: No Action glucose 4 gram tablet,chewable 4 gram PO Q15M PRN (Reason: hypoglycemia) Qty: 30 0RF Rx Instructions: until response Glucagon Emergency Kit (human) 1 mg recon soln 1 mg subcut DIRECTED ondansetron 4 mg tablet,disintegrating 4 mg PO Q8H PRN (Reason: nausea and vomiting) Qty: 10 0RF diphenhydramine HCl 50 mg Capsule 50 mg PO BEDTIME PRN (Reason: Sleep) Rx Instructions: for itching and sleep insulin aspart U-100 [Novolog Flexpen U-100 Insulin] 100 unit/mL (3 mL) insulin pen See Rx Instructions .ROUTE .COMPLEX Label Comments: Inject 7-20 Units under the skin 3 (three) times a day with meals SLIDING scale Rx Instructions: 7-10 units at meals using sliding scale pantoprazole 40 mg tablet,delayed release (DR/EC) 40 mg PO BEDTIME Label Comments: TAKE ONE TABLET BY MOUTH ONE TIME DAILY Tresiba FlexTouch U-200 200 unit/mL (3 mL) insulin pen 13 ea SUBCUT BID methocarbamol 500 mg tablet 1 tab PO TID Label Comments: TAKE ONE TO TWO TABLETS BY MOUTH THREE TIMES DAILY NEEDED FOR MUSCLE SPASMS sennosides [senna] 8.6 mg Tablet 8.6 mg PO DAILY acetaminophen 325 mg Tablet 975 mg PO Q8H Qty: 30 0RF tramadol 50 mg Tablet 50 mg PO Q4H PRN (Reason: Pain, Moderate (4-6)) Qty: 15 0RF hydromorphone 2 mg Tablet 2 mg PO Q4HR PRN (Reason: Pain, Moderate (4-6)) Qty: 10 0RF naloxone [Narcan] 4 mg/actuation spray,non-aerosol 1 spray intranasal Q2M Qty: 2 0RF Rx Instructions: spray 1 dose into ONE nostril; alternate nostrils w each dose until help arrives Referrals: Maria Ines Limon DO [Primary Care Provider] -
--- NOTE | 2021-12-09 12:30 | ED_ITS ---
HPI - Skin/Abscess/Foreign Bdy <Andrea Patterson PA-C - Last Filed: 12/09/21 13:27> General Chief complaint: Skin/Abscess/Foreign Body Stated complaint: Painul lumps on right side of neck Time Seen by Provider: 12/09/21 11:51 Source: patient Mode of arrival: Wheelchair Limitations: no limitations History of Present Illness HPI narrative: Patient is a 31-year-old female who presents to the emergency room today with complaint of painful lump to her right neck. Patient noticed this morning. Also complains of painful abrasion to her scalp that she noticed on Saturday. Saw provider about this yesterday and was prescribed antibiotics headaches. Cannot remember the name of antibiotics at this time. Also states she had her gallbladder removed in October of this year and continues to have mild abdominal pain related to that. Her main concern today is the new painful lump to the right neck denies any trauma to the area denies any redness or bleeding or drainage from the area. Also states she had a cyst on the top of her head about 2 years ago had to be surgically removed. Last menstrual period was about 2 years ago is currently on insulin in taking her insulin shots as ordered. Denies any other concerns at this time. Nurse informed provider the patient left and stated she would follow-up with her primary care provider. No labs or urine was collected her drawn. Related Data Home Medications Medication Instructions Recorded Confirmed glucagon (human recombinant) 1 mg 1 mg SUBCUT DIRECTED 02/16/19 11/29/21 solution for injection (Glucagon Emergency Kit) diphenhydramine HCl 50 mg capsule 50 mg PO BEDTIME PRN Sleep 09/29/20 11/29/21 insulin aspart U-100 100 unit/mL See Rx Instructions .Route .COMPLEX 11/13/21 11/29/21 (3 mL) subcutaneous pen (Novolog Flexpen U-100 Insulin aspart) insulin degludec 200 unit/mL (3 13 ea SUBCUT BID 11/13/21 11/29/21 mL) subcutaneous pen (Tresiba FlexTouch U-200 insulin) methocarbamol 500 mg tablet 1 tab PO TID 11/13/21 11/29/21 pantoprazole 40 mg tablet,delayed 40 mg PO BEDTIME 11/13/21 11/29/21 release sennosides 8.6 mg tablet (senna) 8.6 mg PO DAILY 11/13/21 11/29/21 Previous Rx's Medication Instructions Recorded glucose 4 gram chewable tablet 4 gram PO Q15M PRN hypoglycemia 12/12/18 #30 tabs ondansetron 4 mg disintegrating 4 mg PO Q8H PRN nausea and 11/08/21 tablet vomiting #10 tabs acetaminophen 325 mg tablet 975 mg PO Q8H #30 tabs 11/18/21 hydromorphone 2 mg tablet 2 mg PO Q4HR PRN Pain, Moderate 11/18/21 (4-6) #10 tabs naloxone 4 mg/actuation nasal 1 spray intranasal Q2M #2 ea 11/18/21 spray (Narcan) tramadol 50 mg tablet 50 mg PO Q4H PRN Pain, Moderate 11/18/21 (4-6) #15 tabs Allergies Allergy/AdvReac Type Severity Reaction Status Date / Time abdalla [ABDALLA] Allergy Intermediate Hives, Verified 12/09/21 11:18 pruritus iodine [IODINE] Allergy Intermediate rash, itchy Verified 12/09/21 11:18 morphine Allergy Intermediate Difficulty Verified 12/09/21 11:18 Breathing shellfish derived Allergy Intermediate rash Verified 12/09/21 11:18 [SHELLFISH DERIVED] adhesive [ADHESIVE] Allergy Unknown tape Verified 12/09/21 11:18 latex [LATEX] Allergy Unknown Hives Verified 12/09/21 11:18 Review of Systems <Andrea Patterson PA-C - Last Filed: 12/09/21 13:27> Review of Systems Narrative: REVIEW OF SYSTEMS:. General: No weight change, generally healthy, no change in strength or exercise tolerance. No fever/chill. No fatigue. Head: No headaches, no vertigo, no injury. Eyes: Normal vision, no diplopia, no tearing, no scotomata, no pain. Ears: No change in hearing, no tinnitus, no bleeding, no vertigo. Nose: No epistaxis, no coryza, no obstruction, no discharge. Mouth: No dental difficulties, no gingival bleeding, no use of dentures. Neck: No stiffness, no pain, no tenderness, no noted masses. Chest: No dyspnea, no wheezing, no hemoptysis, no cough. Heart: No chest pains, no palpitations, no syncope, no orthopnea. Abdomen: No change in appetite, no dysphagia, no abdominal pains, no bowel habit changes, no emesis, no melena. Musculoskeletal: No pain in muscles or joints, no limitation of range of motion, no paresthesia or numbness. Neurologic: No weakness, no tremor, no seizures, no changes in mentation, no ataxia. Psychiatric: No depressive symptoms, no changes in sleep habits, no changes in thought content.. Skin: Painful lump to right neck. Patient History <Andrea Patterson PA-C - Last Filed: 12/09/21 13:27> Medical History DKA (diabetic ketoacidoses) History of pyelonephritis Irregular menstrual cycle Migraine headache Nephrolithiasis Noncompliance w/medication treatment due to intermit use of medication Type 1 diabetes mellitus Surgical History History of ureter stent Hx of cataract surgery Hx of local excision of skin lesion Status post laser lithotripsy of ureteral calculus [place] teeth extracted Family History Father In good health Mother Cardiac disease Social History details: Engaged household members: significant other Smoking Status: Never smoker alcohol intake: never Smoking Status: Never smoker alcohol intake frequency: holidays/special occasions only Substance Use Type: does not use Exam <Andrea Patterson PA-C - Last Filed: 12/09/21 13:27> Narrative Exam Narrative: Physical Exam: General: Normal appearance, well developed, well nourished, alert, and awake. Not in acute distress. ? Head: Has an area at the right superior anterior parietal area. Area contains 2 macular abrasions that are about .5cm in circular diameter. Eyes: PERRLA, EOM's full, conjunctivae clear. ? Ears: EAC's clear, TM's normal. ?? Throat: Clear, no exudates, no lesions. ?? Neck: Tender elevated dermal area at the right mid anterior cervical area. Areas about 1 cm in circular diameter. Area is nonfluctuant nonerythematous and without drainage. Chest: Lungs clear, no rales, no rhonchi, no wheezes. ?? Heart: RR, no murmurs, no rubs, no gallops. ?? Neuro: Physiological, no localizing findings, CN2-12 intact. ?? Extremities: Warm, well perfused, FROM, no deformities, no edema, no erythema. ?? PSYCHIATRIC: The mood is good, no blunted affect. Speech is clear. Thought process is linear, thought content is appropriate. The voice is without significant inflection.. Initial Vital Signs Initial Vital Signs: Vital Signs Temperature 96.7 F L 12/09/21 11:18 Pulse Rate 108 H 12/09/21 11:18 Respiratory Rate 15 12/09/21 11:18 Blood Pressure 143/95 H 12/09/21 11:18 Pulse Oximetry 98 12/09/21 11:18 Oxygen Delivery Method 12/09/21 11:18 <DO Kaitlin Ball Last Filed: 12/10/21 06:57> Initial Vital Signs Initial Vital Signs: Vital Signs Temperature 96.7 F L 12/09/21 11:18 Pulse Rate 108 H 12/09/21 11:18 Respiratory Rate 15 12/09/21 11:18 Blood Pressure 143/95 H 12/09/21 11:18 Pulse Oximetry 98 12/09/21 11:18 Oxygen Delivery Method 12/09/21 11:18 Course <SCOTTY Vance Last Filed: 12/09/21 13:27> Orders Ordered: ED Orders 12/09/21 12:22 CBC Auto Diff [Complete Blood Count AUTO DIFF] Stat CMP [Comprehensive Metabolic Panel] Stat Vital Signs Vital signs: Vital Signs - 8 hr 12/09/21 11:18 Temperature 96.7 F L Pulse Rate 108 H Respiratory Rate 15 Blood Pressure 143/95 H Pulse Oximetry 98 Oxygen Delivery Method Room Air <DO Kaitlin Ball Last Filed: 12/10/21 06:57> Orders Ordered: ED Orders 12/09/21 12:22 CBC Auto Diff [Complete Blood Count AUTO DIFF] Stat CMP [Comprehensive Metabolic Panel] Stat Vital Signs Vital signs: Vital Signs - 8 hr 12/09/21 11:18 Temperature 96.7 F L Pulse Rate 108 H Respiratory Rate 15 Blood Pressure 143/95 H Pulse Oximetry 98 Oxygen Delivery Method Room Air MDM - Skin/Abscess/Foreign Bdy <SCOTTY Vance Last Filed: 12/09/21 13:27> [facility] Narrative Medical decision making narrative: Patient is a 31-year-old female who presents to the emergency room today with complaint for lump to her right neck. Noticed the lump this morning. Also admits to being on antibiotics she started yesterday for a abrasion that she has on her scalp that was diagnosed by provider yesterday. CBC CMP and point of care urine were ordered to rule out an acute infection. Nurse informed provider the patient left and stated she would follow-up with her primary care provider if concerns arise. No labs or urine were drawn are collected. Discharge Plan Departure Patient Disposition: Left Against Medical Advice Clinical Impression: Left against medical advice Prescriptions: No Action glucose 4 gram tablet,chewable 4 gram PO Q15M PRN (Reason: hypoglycemia) Qty: 30 0RF Rx Instructions: until response Glucagon Emergency Kit (human) 1 mg recon soln 1 mg subcut DIRECTED ondansetron 4 mg tablet,disintegrating 4 mg PO Q8H PRN (Reason: nausea and vomiting) Qty: 10 0RF diphenhydramine HCl 50 mg Capsule 50 mg PO BEDTIME PRN (Reason: Sleep) Rx Instructions: for itching and sleep insulin aspart U-100 [Novolog Flexpen U-100 Insulin] 100 unit/mL (3 mL) insulin pen See Rx Instructions .ROUTE .COMPLEX Label Comments: Inject 7-20 Units under the skin 3 (three) times a day with meals SLIDING scale Rx Instructions: 7-10 units at meals using sliding scale pantoprazole 40 mg tablet,delayed release (DR/EC) 40 mg PO BEDTIME Label Comments: TAKE ONE TABLET BY MOUTH ONE TIME DAILY Tresiba FlexTouch U-200 200 unit/mL (3 mL) insulin pen 13 ea SUBCUT BID methocarbamol 500 mg tablet 1 tab PO TID Label Comments: TAKE ONE TO TWO TABLETS BY MOUTH THREE TIMES DAILY NEEDED FOR MUSCLE SPASMS sennosides [senna] 8.6 mg Tablet 8.6 mg PO DAILY acetaminophen 325 mg Tablet 975 mg PO Q8H Qty: 30 0RF tramadol 50 mg Tablet 50 mg PO Q4H PRN (Reason: Pain, Moderate (4-6)) Qty: 15 0RF hydromorphone 2 mg Tablet 2 mg PO Q4HR PRN (Reason: Pain, Moderate (4-6)) Qty: 10 0RF naloxone [Narcan] 4 mg/actuation spray,non-aerosol 1 spray intranasal Q2M Qty: 2 0RF Rx Instructions: spray 1 dose into ONE nostril; alternate nostrils w each dose until help arrives Referrals: Maria Ines Limon DO [Primary Care Provider] - Stand Alone Forms: Against Medical Advice <Teddy Yap DO - Last Filed: 12/10/21 06:57> Cosign ED Attending Cosignature Attestation: I was immediately available in the department for consultation. This documentation has been reviewed and I agree with assessment and plan. Supervised by Teddy Yap DO
== END 2021-12-09 12:50 | disposition left against medical advice (07) ==
PROVIDERS: Emergency Provider Physician Assistant; PCP Student in an Organized Health Care Education/Training Program
DX: R22.1 Localized swelling, mass and lump, neck (principal)
CPT/HCPCS: 99281

== ENCOUNTER 2021-12-11 13:00 | Emergency (ER) | payer OTHER, MEDICAID, SELFPAY ==
[2021-11-13 14:44] VITALS: BMI 18.8
[2021-12-11 13:03] VITALS: BP 144/99; PULSE 115; RESP 20; TEMP 36.6; O2SAT 97; BMI 19.8
--- NOTE | 2021-12-11 13:08 | DI.RAD.S_ITS ---
PROCEDURE: XR ACUTE ABDOMEN SERIES INDICATIONS: constipation TECHNIQUE: One view chest and two views of the abdomen were acquired. COMPARISON: [facility], ABDOMEN ACUTE SERIES, 01/13/2014, 19:00. [facility], ABDOMEN ACUTE SERIES, 06/09/2010, 1:42. FINDINGS: Surgical changes and devices: Post cholecystectomy. Chest: Lungs are clear. Heart size is normal. No pleural effusions. No pneumoperitoneum. Abdomen: Scattered small bowel gas. No dilated loops of bowel seen. Prominent stool in the colon. No suspicious calcifications. Visualized solid organ contours appear normal. Bones: No suspicious bony lesions. Prior right pubic fracture. IMPRESSION: No acute cardiopulmonary abnormality. Prominent stool in the colon. Dictated by: Chi Pan M.D. on 12/11/2021 at 13:49 Approved by: Chi Pan M.D. on 12/11/2021 at 13:52
--- NOTE | 2021-12-11 15:57 | ED.ABDPAIN ---
HPI - Abdominal Pain <SHARYN Pittman - Last Filed: 12/11/21 17:21> General Chief Complaint: Abdominal Pain Stated Complaint: Constipated and in pain x a week Time Seen by Provider: 12/11/21 15:44 Source: patient and family Mode of arrival: Wheelchair History of Present Illness HPI narrative: 31-year-old female, nonsmoker, presents to the emergency department with constipation x1 week and abdominal pain that has worsened since yesterday. Patient is in visible discomfort. Patient had her gallbladder removed on November 16 and has had issues with with her bowels alternating between constipation and diarrhea ever since. Patient had previously declined a prescribed suppository but was agreeable this morning with no relief. Patient was previously seen in the ED 2 days ago but left Against Medical Advice for a unrelated complaint. Patient's mother is at the bedside. Related Data Home Medications Medication Instructions Recorded Confirmed glucagon (human recombinant) 1 mg 1 mg SUBCUT DIRECTED 02/16/19 11/29/21 solution for injection (Glucagon Emergency Kit) diphenhydramine HCl 50 mg capsule 50 mg PO BEDTIME PRN Sleep 09/29/20 11/29/21 insulin aspart U-100 100 unit/mL See Rx Instructions .Route .COMPLEX 11/13/21 11/29/21 (3 mL) subcutaneous pen (Novolog Flexpen U-100 Insulin aspart) insulin degludec 200 unit/mL (3 13 ea SUBCUT BID 11/13/21 11/29/21 mL) subcutaneous pen (Tresiba FlexTouch U-200 insulin) methocarbamol 500 mg tablet 1 tab PO TID 11/13/21 11/29/21 pantoprazole 40 mg tablet,delayed 40 mg PO BEDTIME 11/13/21 11/29/21 release sennosides 8.6 mg tablet (senna) 8.6 mg PO DAILY 11/13/21 11/29/21 Previous Rx's Medication Instructions Recorded glucose 4 gram chewable tablet 4 gram PO Q15M PRN hypoglycemia 12/12/18 #30 tabs ondansetron 4 mg disintegrating 4 mg PO Q8H PRN nausea and 11/08/21 tablet vomiting #10 tabs acetaminophen 325 mg tablet 975 mg PO Q8H #30 tabs 11/18/21 hydromorphone 2 mg tablet 2 mg PO Q4HR PRN Pain, Moderate 11/18/21 (4-6) #10 tabs naloxone 4 mg/actuation nasal 1 spray intranasal Q2M #2 ea 11/18/21 spray (Narcan) tramadol 50 mg tablet 50 mg PO Q4H PRN Pain, Moderate 11/18/21 (4-6) #15 tabs Allergies Allergy/AdvReac Type Severity Reaction Status Date / Time abdalla [ABDALLA] Allergy Intermediate Hives, Verified 12/11/21 13:06 pruritus iodine [IODINE] Allergy Intermediate rash, itchy Verified 12/11/21 13:06 morphine Allergy Intermediate Difficulty Verified 12/11/21 13:06 Breathing shellfish derived Allergy Intermediate rash Verified 12/11/21 13:06 [SHELLFISH DERIVED] adhesive [ADHESIVE] Allergy Unknown tape Verified 12/11/21 13:06 latex [LATEX] Allergy Unknown Hives Verified 12/11/21 13:06 Review of Systems <SHARYN Pittman - Last Filed: 12/11/21 17:21> Review of Systems Narrative: Narrative: GENERAL: Denies chills, fatigue, fever, sweats. See HPI HEENT: Denies sinus pain, ear pain, sore throat, difficulty swallowing, dizziness. RESPIRATORY: Denies dyspnea, cough, wheezing, sputum. CARDIOVASCULAR: Denies chest pain, palpitations, edema. GASTROINTESTINAL: Denies nausea, vomiting, diarrhea. Endorses severe generalized abdominal pain. : Denies dysuria, frequency, incontinence, hematuria, urinary retention, flank pain. MSK: Denies weakness, joint pain, or bony pain. SKIN: Denies rash, skin lesions, or pruritis. NEUROLOGIC: Denies weakness, dizziness, headache, numbness, confusion. PSYCHIATRIC: No concerning psychosocial issues. Patient History <SHARYN Pittman - Last Filed: 12/11/21 17:21> Medical History DKA (diabetic ketoacidoses) History of pyelonephritis Irregular menstrual cycle Migraine headache Nephrolithiasis Noncompliance w/medication treatment due to intermit use of medication Type 1 diabetes mellitus Surgical History History of ureter stent Hx of cataract surgery Hx of local excision of skin lesion Status post laser lithotripsy of ureteral calculus [place] teeth extracted Family History Father In good health Mother Cardiac disease Social History details: Engaged household members: significant other Smoking Status: Never smoker alcohol intake: never Smoking Status: Never smoker alcohol intake frequency: holidays/special occasions only Substance Use Type: does not use Exam <SHARYN Pittman - Last Filed: 12/11/21 17:21> Narrative Exam Narrative: Exam Narrative: GENERAL: This is a well-nourished, well-developed patient, in acute distress HEAD: Atraumatic. Normocephalic. CARDIOVASCULAR: Regular rate and rhythm without murmurs, peripheral pulses intact, cap refill <2 sec. RESPIRATORY: Breath sounds equal and clear bilaterally. No wheezes, rales, or rhonchi. No cough. No increased respiratory effort. No accessory muscle use. GASTROINTESTINAL: Abdomen soft, generalized tenderness, distended per patient report but without guarding or rebound. No suprapubic pain. MSK: Moves all extremities. Normal range of motion, no clubbing or edema. Neurovascularly intact. NEURO: A&O x 3. SKIN: Warm, dry, no rashes or lesions noted. Partially healed laparotomy scars from cholecystectomy 3 weeks ago. Initial Vital Signs Initial Vital Signs: Vital Signs Temperature 98 F 12/11/21 13:03 Pulse Rate 115 H 12/11/21 13:03 Respiratory Rate 20 12/11/21 13:03 Blood Pressure 144/99 H 12/11/21 13:03 Pulse Oximetry 97 12/11/21 13:03 Oxygen Delivery Method 12/11/21 13:03 Reviewed GI Rectal Exam: visual inspection normal, normal sphincter tone, No abnormal stool and No fecal impaction <Teddy Yap DO - Last Filed: 12/12/21 13:20> Initial Vital Signs Initial Vital Signs: Vital Signs Temperature 98 F 12/11/21 13:03 Pulse Rate 115 H 12/11/21 13:03 Respiratory Rate 20 12/11/21 13:03 Blood Pressure 144/99 H 12/11/21 13:03 Pulse Oximetry 97 12/11/21 13:03 Oxygen Delivery Method 12/11/21 13:03 Course <SHARYN Pittman - Last Filed: 12/11/21 17:21> Orders Ordered: Discontinued Medications Sodium Biphosphate/Sodium Phosphate (Fleets Enema) 1 each AL NOW ONE Stop: 12/11/21 15:57 Last Admin: 12/11/21 16:04 Dose: 1 each Documented By: ОЛЬГА Sodium Biphosphate/Sodium Phosphate (Fleets Enema) 1 each AL NOW ONE Stop: 12/11/21 16:42 Last Admin: 12/11/21 16:42 Dose: 1 each Documented By: ОЛЬГА Vital Signs Vital signs: Vital Signs - 8 hr 12/11/21 13:03 Temperature 98 F Pulse Rate 115 H Respiratory Rate 20 Blood Pressure 144/99 H Pulse Oximetry 97 Oxygen Delivery Method Room Air <Teddy Yap DO - Last Filed: 12/12/21 13:20> Orders Ordered: Discontinued Medications Sodium Biphosphate/Sodium Phosphate (Fleets Enema) 1 each AL NOW ONE Stop: 12/11/21 15:57 Last Admin: 12/11/21 16:04 Dose: 1 each Documented By: ОЛЬГА Sodium Biphosphate/Sodium Phosphate (Fleets Enema) 1 each AL NOW ONE Stop: 12/11/21 16:42 Last Admin: 12/11/21 16:42 Dose: 1 each Documented By: ОЛЬГА Vital Signs Vital signs: Vital Signs - 8 hr 12/11/21 13:03 Temperature 98 F Pulse Rate 115 H Respiratory Rate 20 Blood Pressure 144/99 H Pulse Oximetry 97 Oxygen Delivery Method Room Air MDM - Abdominal Pain <SHARYN Pittman - Last Filed: 12/11/21 17:21> Differential Diagnosis Differential diagnosis: Likely constipation Imaging Data CT scan - abdomen/pelvis: Radiologist's Impression: [address] [address] XRay Report Signed Patient: Sarabjit Jimenes MR#: [id number] : 1990 Acct:[id number] Age/Sex: 31 / F Date of Service: 12/11/21 Loc: ED Accession Number: [id number] ?? Procedure: XR acute abdomen series Ordering Provider: Teddy Yap D.O. PROCEDURE:? XR ACUTE ABDOMEN SERIES ? INDICATIONS:? constipation ? TECHNIQUE:? One view chest and two views of the abdomen were acquired.? ? COMPARISON:? [facility], [facility], ABDOMEN ACUTE SERIES, 01/13/2014, 19:00.? [facility], , ABDOMEN ACUTE SERIES, 06/09/2010, 1:42. ? FINDINGS:? ? Surgical changes and devices:? Post cholecystectomy. ? Chest:? Lungs are clear.? Heart size is normal.? No pleural effusions.? No pneumoperitoneum.? ? Abdomen:? Scattered small bowel gas. No dilated loops of bowel seen.? Prominent stool in the colon.? No suspicious calcifications.? Visualized solid organ contours appear normal. ? ? Bones:? No suspicious bony lesions.? Prior right pubic fracture.? ? IMPRESSION:? No acute cardiopulmonary abnormality. ? Prominent stool in the colon. ? ? ? Dictated by: Chi Pan M.D. on 12/11/2021 at 13:49 ? ? Approved by: Chi Pan M.D. on 12/11/2021 at 13:52 ? MDM Narrative Medical decision making narrative: 31-year-old female that presents emergency department with constipation x1 week and abdominal pain that worsened overnight. CT revealed large amount of stool in the colon. EZE revealed no impaction. Fleets enema x1 given, and after patient was told to stay in the lying position, got up after 2 minutes and sat on the bedside commode. Contents of Fleet's enema were evacuated. Decision was made to administer another Fleet's with strict instructions to stay lying down. Patient was able to successfully move her bowels. Patient's mother reports that they have magnesium citrate at home but have not tried that. Discussed the need for proper hydration and supplemental fiber. Discussed plan of care and return precautions with patient and mother, who were agreeable with course of action. Discharge Plan Departure Patient Disposition: Home Clinical Impression: Constipation Instructions: DI for Constipation Activity Restrictions/Additional Instructions: *You have been diagnosed with constipation. The CT revealed a large amount of stool in her colon. We have given you a Fleet's enema, that has been successful in removing some of the fecal matter. I recommend you try your at-home magnesium citrate, up to 1 bottle per day, to help the constipation resolve. As we discussed, you may want to try adding a fiber supplement to your diet and make sure you hydrate well with water on a daily basis. Please follow-up with your family doctor as needed. *What to do: *Please continue to take your regular medications as directed. [ ] New medication prescriptions sent to your pharmacy: [ ] [ ] New medication written as a paper prescription [x ] No new medications given *Please follow up with your primary care provider in 2-3 days, call for an appointment. Let them know you were seen in the Emergency Department and that we ask that you be seen in follow up. We will electronically transmit a record of today's note if your PCP is in our system *If you do not have a primary care provider please contact the [facility] Resource line at [phone]. They will ask some questions about your medical history and help get you set up with a doctor in the community. ? Return to ER if you should have any new, worsening or concerning symptoms, such as worsening pain, severe headache, confusion, chest pain, difficulty breathing, fever greater than 101 F, shaking chills, persistent vomiting to the point that you cannot drink fluids, or other new or worsening symptoms. Prescriptions: No Action glucose 4 gram tablet,chewable 4 gram PO Q15M PRN (Reason: hypoglycemia) Qty: 30 0RF Rx Instructions: until response Glucagon Emergency Kit (human) 1 mg recon soln 1 mg subcut DIRECTED ondansetron 4 mg tablet,disintegrating 4 mg PO Q8H PRN (Reason: nausea and vomiting) Qty: 10 0RF diphenhydramine HCl 50 mg Capsule 50 mg PO BEDTIME PRN (Reason: Sleep) Rx Instructions: for itching and sleep insulin aspart U-100 [Novolog Flexpen U-100 Insulin] 100 unit/mL (3 mL) insulin pen See Rx Instructions .ROUTE .COMPLEX Label Comments: Inject 7-20 Units under the skin 3 (three) times a day with meals SLIDING scale Rx Instructions: 7-10 units at meals using sliding scale pantoprazole 40 mg tablet,delayed release (DR/EC) 40 mg PO BEDTIME Label Comments: TAKE ONE TABLET BY MOUTH ONE TIME DAILY Tresiba FlexTouch U-200 200 unit/mL (3 mL) insulin pen 13 ea SUBCUT BID methocarbamol 500 mg tablet 1 tab PO TID Label Comments: TAKE ONE TO TWO TABLETS BY MOUTH THREE TIMES DAILY NEEDED FOR MUSCLE SPASMS sennosides [senna] 8.6 mg Tablet 8.6 mg PO DAILY acetaminophen 325 mg Tablet 975 mg PO Q8H Qty: 30 0RF tramadol 50 mg Tablet 50 mg PO Q4H PRN (Reason: Pain, Moderate (4-6)) Qty: 15 0RF hydromorphone 2 mg Tablet 2 mg PO Q4HR PRN (Reason: Pain, Moderate (4-6)) Qty: 10 0RF naloxone [Narcan] 4 mg/actuation spray,non-aerosol 1 spray intranasal Q2M Qty: 2 0RF Rx Instructions: spray 1 dose into ONE nostril; alternate nostrils w each dose until help arrives Referrals: Maria Ines Limon DO [Primary Care Provider] - Visit Report Forms: Patient Portal/API <Teddy Yap DO - Last Filed: 12/12/21 13:20> Cosign ED Attending Cosshaheedature Attestation: I was immediately available in the department for consultation. Documentation has been reviewed. I agree with assessment and plan.
[2021-12-11] MEDS: FLEETS ENEMA 1 EACH PR ×2 (16:04→16:42)
--- NOTE | 2021-12-11 16:42 | PC.NURSE ---
1610: patient was encouraged to wait a full 15 minutes, longer if possible before attempting to get up to the commode after being given an enema. She got up to commode after 5 minutes and the only output was the liquid form the enema. Provider informed and aware, verbal order given for second enema. I again encouraged the patient to stay in bed on side for at least 15 minutes before attempting to use the commode after the enema.
--- NOTE | 2021-12-11 17:08 | PC.NURSE ---
Patient had small amount of hard stool output. Provider aware.
[2021-12-11 17:32] VITALS: BP 136/91; PULSE 114; RESP 20; O2SAT 97
--- NOTE | 2021-12-11 17:34 | PC.NURSE ---
Pt had a large BM
== END 2021-12-11 17:34 | disposition home or self-care (01) ==
PROVIDERS: Emergency Provider Registered Nurse; PCP Student in an Organized Health Care Education/Training Program
DX: K59.00 Constipation, unspecified (principal)
CPT/HCPCS: 74022; 99282; 99283

== ENCOUNTER 2021-12-12 22:09 | Emergency (ER) | payer OTHER, MEDICAID, SELFPAY ==
[2021-11-13 14:44] VITALS: BMI 18.8
[2021-12-12 22:12] VITALS: BP 148/103; PULSE 113; O2SAT 98
[2021-12-12 22:16] VITALS: BP 148/99; PULSE 113; RESP 18; O2SAT 98
[2021-12-12 22:17] VITALS: BP 148/103; PULSE 113; RESP 16; TEMP 36.9; O2SAT 98; BMI 19.8
--- NOTE | 2021-12-12 22:23 | DI.RAD.S_ITS ---
PROCEDURE: XR CHEST 1V INDICATIONS: chest pain TECHNIQUE: One view of the chest was acquired. COMPARISON: [facility], CR, XR CHEST 1V, 10/13/2021, 22:22. FINDINGS: Surgical changes and devices: None. Lungs and pleura: Lungs are clear. No pleural effusions or pneumothorax. Mediastinum: Mediastinal contours appear normal. Heart size is normal. Bones and chest wall: No suspicious bony lesions. Overlying soft tissues appear unremarkable. IMPRESSION: No acute cardiopulmonary disease. Dictated by: Whitney Henning M.D. on 12/12/2021 at 23:32 Approved by: Whitney Henning M.D. on 12/12/2021 at 23:32
[2021-12-12 22:30] VITALS: BP 160/107; PULSE 109; O2SAT 97
[2021-12-12 22:31] LABS: Add Manual Diff / Slide Review NO; Basophils Absolute Auto 100 /uL (0-100); Basophils Percent Auto 1.1 % (0-2); Eosinophils Absolute Auto 100 /uL (0-450); Eosinophils Percent Auto 1.3 % (2-4); Hematocrit 36.3 % (36-46); Hemoglobin 12.2 g/dL (12.0-16.0); INR 0.9 (0.9-1.3); Lymphocytes Absolute Auto 1700 /uL (1100-4500); Lymphocytes Percent Auto 30.4 % (25-40); Mean Corpuscular HGB Conc 33.5 % (30-36); Mean Corpuscular Hemoglobin 28.2 PG (26-34); Monocytes Absolute Auto 600 /uL (0-900); Monocytes Percent Auto 10.4 % (3-14); Neutrophils Absolute Auto 3300 /uL (1500-7000); Neutrophils Percent Auto 56.8 % (50-75); Platelet Count 434 X10^3/uL (150-400); Prothrombin Time 10.7 SECONDS (10.1-12.7); Red Blood Cell Count 4.32 X10^6/uL (4.0-5.2); Red Cell Distribution Width 17.9 % (11.6-14.8); White Blood Cell Count 5.8 X10^3/uL (4.5-11.0)
[2021-12-12 22:33] LABS: PTT Partial Thromboplastin Tim 35 SECONDS (26-36)
[2021-12-12 22:35] LABS: Alanine Aminotransferase 14 IU/L (<35); Albumin 2.9 g/dL (3.5-5.0); Alkaline Phosphatase 137 U/L (38-126); Aspartate Aminotransferase 21 IU/L (14-36); BUN Creatinine Ratio 40.4 (6-22); Bilirubin Total 0.2 mg/dL (0.2-1.3); Blood Urea Nitrogen 21 mg/dL (7-17); Calcium 8.2 mg/dL (8.4-10.2); Carbon Dioxide 32 mmol/L (22-32); Chloride 98 mmol/L (98-107); Creatine Kinase 54 U/L (30-135); Estimated Glomerular Filt Rate > 60 mL/min (>60); Glucose 136 mg/dL (70-100); HEMOLYSIS 27 (0-50); Lipase 54 U/L (23-300); Magnesium 2.5 mg/dL (1.6-2.3); Potassium 4.3 mmol/L (3.4-5.1); Sodium 132 mmol/L (137-145); Total Protein 5.9 g/dL (6.3-8.2)
[2021-12-12 22:47] LABS: Troponin I < 0.012 ng/mL (0.01-0.034)
[2021-12-12 23:00] VITALS: BP 123/81; PULSE 103; O2SAT 96
[2021-12-12 23:30] VITALS: BP 113/76; PULSE 103; O2SAT 96
[2021-12-13] VITALS (19 sets, daily range): BP systolic 111–181; BP diastolic 69–119; PULSE 98–115; RESP 16; O2SAT 91–100
[2021-12-13] MEDS: SODIUM CHLORIDE 0.9% 1,000 ML 1000 ML IV (00:38)
--- NOTE | 2021-12-13 05:15 | ED_ITS ---
HPI - General Adult General Chief complaint: Syncope Stated complaint: Syncope Time Seen by Provider: 12/12/21 22:17 History of Present Illness HPI narrative: 31-year-old woman with type 1 diabetes with multiple complications who comes in complaining of cramping in her legs, abdominal cramping, generalized body aches and feeling generally unwell. She has had no fevers, cough, palpitations. She notes that her sugars have actually been fairly well controlled she is consistently using her insulin, she describes no dysuria, frequency. She has been having significant difficulties with constipation. In the past number of months she had a pelvic fracture that was appropriately treated with narcotics she was improving nicely with home physical therapy and then developed acute cholecystitis and had her gallbladder removed. Again appropriately treated with narcotics but unfortunately this was a significant setback in the recovery from the pelvic fracture. She is starting home physical therapy again today but has been significantly weak and is having difficulty even getting out of bed. She typically uses a walker. Last night she got up to go to the bathroom she stood up at and felt dizzy sat back down and then when she tried again felt increasingly dizzy noted tunnel vision told her mom that she felt she was going to fall. Her mom was immediately available and she did in fact have a syncopal episode and fell to the ground with her mom helping guide her so there is no injury. She quickly regained consciousness and was quite distressed at being on the ground rather than in bed. She was brought in to the emergency department for further evaluation. Related Data Home Medications Medication Instructions Recorded Confirmed glucagon (human recombinant) 1 mg 1 mg SUBCUT DIRECTED 02/16/19 11/29/21 solution for injection (Glucagon Emergency Kit) diphenhydramine HCl 50 mg capsule 50 mg PO BEDTIME PRN Sleep 09/29/20 11/29/21 insulin aspart U-100 100 unit/mL See Rx Instructions .Route .COMPLEX 11/13/21 11/29/21 (3 mL) subcutaneous pen (Novolog Flexpen U-100 Insulin aspart) insulin degludec 200 unit/mL (3 13 ea SUBCUT BID 11/13/21 11/29/21 mL) subcutaneous pen (Tresiba FlexTouch U-200 insulin) methocarbamol 500 mg tablet 1 tab PO TID 11/13/21 11/29/21 pantoprazole 40 mg tablet,delayed 40 mg PO BEDTIME 11/13/21 11/29/21 release sennosides 8.6 mg tablet (senna) 8.6 mg PO DAILY 11/13/21 11/29/21 Previous Rx's Medication Instructions Recorded glucose 4 gram chewable tablet 4 gram PO Q15M PRN hypoglycemia 12/12/18 #30 tabs ondansetron 4 mg disintegrating 4 mg PO Q8H PRN nausea and 11/08/21 tablet vomiting #10 tabs acetaminophen 325 mg tablet 975 mg PO Q8H #30 tabs 11/18/21 hydromorphone 2 mg tablet 2 mg PO Q4HR PRN Pain, Moderate 11/18/21 (4-6) #10 tabs naloxone 4 mg/actuation nasal 1 spray intranasal Q2M #2 ea 11/18/21 spray (Narcan) tramadol 50 mg tablet 50 mg PO Q4H PRN Pain, Moderate 11/18/21 (4-6) #15 tabs hydrocodone 5 mg-acetaminophen 325 1 tab PO BEDTIME PRN pain #10 tabs 12/13/21 mg tablet Allergies Allergy/AdvReac Type Severity Reaction Status Date / Time abdalla [ABDALLA] Allergy Intermediate Hives, Verified 12/11/21 13:06 pruritus iodine [IODINE] Allergy Intermediate rash, itchy Verified 12/11/21 13:06 morphine Allergy Intermediate Difficulty Verified 12/11/21 13:06 Breathing shellfish derived Allergy Intermediate rash Verified 12/11/21 13:06 [SHELLFISH DERIVED] adhesive [ADHESIVE] Allergy Unknown tape Verified 12/11/21 13:06 latex [LATEX] Allergy Unknown Hives Verified 12/11/21 13:06 Review of Systems Review of Systems Narrative: Remainder of complete review of systems is otherwise unremarkable except for that included in the HPI. Patient History Medical History DKA (diabetic ketoacidoses) History of pyelonephritis Irregular menstrual cycle Migraine headache Nephrolithiasis Noncompliance w/medication treatment due to intermit use of medication Type 1 diabetes mellitus Surgical History History of ureter stent Hx of cataract surgery Hx of local excision of skin lesion Status post laser lithotripsy of ureteral calculus [place] teeth extracted Family History Father In good health Mother Cardiac disease Social History details: Engaged household members: significant other Smoking Status: Never smoker alcohol intake: never Smoking Status: Never smoker alcohol intake frequency: holidays/special occasions only Substance Use Type: does not use Exam Initial Vital Signs Initial Vital Signs: Vital Signs Pulse Rate 113 H 12/12/21 22:12 Blood Pressure 148/103 H 12/12/21 22:12 Pulse Oximetry 98 12/12/21 22:12 General: Chronically ill-appearing, pale. Able to give a complete and coherent history. HEENT: Moist mucous membranes, normal sclera with reactive pupils, she has 2 small lesions over the crown of her head for which she is currently on antibiotics Neck: Small mobile lymph node posterior chain on the right side Respiratory: Lungs are clear to auscultation, no wheezing no rales no rhonchi. Full and symmetrical air movement Cardiac: Regular rate and rhythm no murmurs no bruits Abdomen: Soft, nontender, hyperactive bowel tones, no flank pain Skin: Warm and dry, no rashes, minor bruising in various stages of healing Neurologic: Globally weak but Grossly neurologically intact with no obvious asymmetries or abnormalities Extremities: No trauma, well perfused Psych: Cooperative, appropriate insight and affect Course Orders Ordered: ED Orders 12/12/21 22:13 Complete Blood Count AUTO DIFF Stat Comprehensive Metabolic Panel Stat Lipase Stat Magnesium Stat Partial Thromboplastin Time Stat Prothrombin Time INR Stat Troponin & CK Cardiac Panel Stat 12/12/21 22:23 XR chest 1V Stat 12/12/21 22:41 EKG-12 Lead Stat Discontinued Medications Sodium Chloride (Normal Saline 0.9%) 1,000 mls @ 1,000 mls/hr IV BOLUS ONE Stop: 12/13/21 00:24 Last Infusion: 12/13/21 03:21 Dose: 0 mls/hr Documented By: Admin: 12/13/21 00:38 Dose: 1,000 mls/hr Documented By: ARTIE Vital Signs Vital signs: Vital Signs - 8 hr 12/12/21 22:17 12/12/21 22:12 12/12/21 22:12 Temperature 98.4 F Pulse Rate 113 H 113 H Respiratory Rate 16 Blood Pressure 148/103 H 148/103 H Pulse Oximetry 98 98 Oxygen Delivery Method Room Air 12/12/21 22:16 12/12/21 22:16 12/12/21 22:30 Temperature Pulse Rate 113 H Respiratory Rate 18 Blood Pressure 148/99 H 160/107 H Pulse Oximetry 98 Oxygen Delivery Method 12/12/21 22:30 12/12/21 23:00 12/12/21 23:00 Temperature Pulse Rate 109 H 103 H Respiratory Rate Blood Pressure 123/81 Pulse Oximetry 97 96 Oxygen Delivery Method 12/12/21 23:30 12/12/21 23:30 12/13/21 00:00 Temperature Pulse Rate 103 H Respiratory Rate Blood Pressure 113/76 111/73 Pulse Oximetry 96 Oxygen Delivery Method 12/13/21 00:00 12/13/21 00:30 12/13/21 00:30 Temperature Pulse Rate 102 H 100 H Respiratory Rate Blood Pressure 127/83 Pulse Oximetry 97 96 Oxygen Delivery Method 12/13/21 01:00 12/13/21 01:00 12/13/21 01:30 Temperature Pulse Rate 100 H Respiratory Rate Blood Pressure 128/86 133/89 Pulse Oximetry 97 Oxygen Delivery Method 12/13/21 01:30 12/13/21 02:00 12/13/21 02:00 Temperature Pulse Rate 99 H 98 H Respiratory Rate Blood Pressure 112/69 Pulse Oximetry 97 96 Oxygen Delivery Method 12/13/21 02:30 12/13/21 02:30 12/13/21 03:00 Temperature Pulse Rate 101 H Respiratory Rate Blood Pressure 157/102 H 159/103 H Pulse Oximetry 96 Oxygen Delivery Method 12/13/21 03:00 12/13/21 03:30 12/13/21 03:30 Temperature Pulse Rate 105 H 114 H Respiratory Rate Blood Pressure 139/96 H Pulse Oximetry 96 98 Oxygen Delivery Method 12/13/21 04:00 12/13/21 04:00 12/13/21 04:30 Temperature Pulse Rate 102 H Respiratory Rate 16 Blood Pressure 147/95 H 151/94 H Pulse Oximetry 97 Oxygen Delivery Method 12/13/21 04:30 Temperature Pulse Rate 101 H Respiratory Rate Blood Pressure Pulse Oximetry 97 Oxygen Delivery Method Medical Decision Making Lab Data Result diagrams: 12/12/21 22:13 12/12/21 22:13 Labs: Lab Results 12/12/21 12/12/21 12/12/21 Range/Units 22:13 22:13 22:13 WBC 5.8 (4.5-11.0) X10^3/uL RBC 4.32 (4.0-5.2) X10^6/uL Hgb 12.2 (12.0-16.0) g/dL Hct 36.3 (36-46) % MCV 84.0 (80-100) fL MCH 28.2 (26-34) PG MCHC 33.5 (30-36) % RDW 17.9 H (11.6-14.8) % Plt Count 434 H (150-400) X10^3/uL Neut % (Auto) 56.8 (50-75) % Lymph % (Auto) 30.4 (25-40) % [place] % (Auto) 10.4 (3-14) % Eos % (Auto) 1.3 L (2-4) % Baso % (Auto) 1.1 (0-2) % Neut # (Auto) 3300 (9326-0746) /uL Lymph # (Auto) 1700 (2629-3589) /uL [place] # (Auto) 600 (0-900) /uL Eos # (Auto) 100 (0-450) /uL Baso # (Auto) 100 (0-100) /uL PT 10.7 (10.1-12.7) SECONDS INR 0.9 (0.9-1.3) APTT 35 (26-36) SECONDS Sodium 132 L (137-145) mmol/L Potassium 4.3 (3.4-5.1) mmol/L Chloride 98 (98-107) mmol/L Carbon Dioxide 32 (22-32) mmol/L BUN 21 H (7-17) mg/dL Creatinine 0.52 (0.52-1.04) mg/dL Estimated GFR > 60 (>60) mL/min BUN/Creatinine Ratio 40.4 H (6-22) Glucose 136 H (70-100) mg/dL Calcium 8.2 L (8.4-10.2) mg/dL Magnesium 2.5 H (1.6-2.3) mg/dL Total Bilirubin 0.2 (0.2-1.3) mg/dL AST 21 (14-36) IU/L ALT 14 (<35) IU/L Alkaline Phosphatase 137 H (38-126) U/L Total Creatine Kinase 54 (30-135) U/L CK-MB (CK-2) TNP CK-MB (CK-2) Rel Index TNP Troponin I < 0.012 (0.01-0.034) ng/mL Total Protein 5.9 L (6.3-8.2) g/dL Albumin 2.9 L (3.5-5.0) g/dL Globulin 3.0 (1.7-4.1) g/dL Albumin/Globulin Ratio 1.0 (1.0-2.8) Lipase 54 (23-300) U/L Imaging Data Chest x-ray: Radiologist's Impression: FINDINGS:? ? Surgical changes and devices:? None.? ? Lungs and pleura:? Lungs are clear.? No pleural effusions or pneumothorax.? ? Mediastinum:? Mediastinal contours appear normal.? Heart size is normal.? ? Bones and chest wall:? No suspicious bony lesions.? Overlying soft tissues appear unremarkable.? ? IMPRESSION:? No acute cardiopulmonary disease.? ? ? Dictated by: Whitney Henning M.D. on 12/12/2021 at 23:32 ? ? MDM Narrative Medical decision making narrative: 31-year-old woman presents with syncopal episode with orthostatic hypotension that is responded nicely fluid. Abdominal cramping with hyperactive bowel tones, leg cramping, mild tachycardia and myalgias. Labs are remarkably reassuring, she is not in DKA. She does not have any evidence of acute infection, coronary syndrome, renal failure or alternate explanations that would require further workup and hospitalization tonight. When questioned about her narcotic use she notes that her pain levels have been doing much better and Tylenol has been completely appropriate, consequently she has not used any of her hydrocodone for at least 2 and prior to that had been deep creasing significantly. She has been on hydrocodone every 6-8 hours for most of the last 8 months after her pelvic fracture and then gallbladder surgery. Given her symptoms today I suspect that she is actually having mild symptoms of narcotic withdrawal after having appropriately stopped her narcotics. I suspect part of the abdominal pain is her chronic constipation is actually being appropriately treated by the mild withdrawal symptoms with increasing frequency of bowel movements. She is given a single Vicodin in the emergency department with moderate relief of symptoms. She is given and additional prescription of 10 hydrocodone to continue to slowly wean off over the next 10-15 days. Questions for both the patient and her mother are answered. At this point she is safe for home discharge Discharge Plan Departure Patient Disposition: Home Clinical Impression: Acute narcotic withdrawal Closed pelvic fracture Qualifiers: Encounter type: subsequent encounter Pelvic bone location: unspecified part of pelvis Activity Restrictions/Additional Instructions: Thank you for coming in today I think it is wonderful that you are actually beginning to do better and her diabetes is under better control. You are not in DKA today You have have a lot of issues recently with a pelvic fracture and then your gallbladder being removed. You have been on appropriate antibiotics for almost 10 months. I am very glad that you are not having enough pain any more to need to continue these. Unfortunately, narcotics need to be weaned when you have been on them for this long and I believe that you did that a bit too quickly. With the increased pain, stomach cramps, nausea and slight increase in your heart rate a suspect that your in mild narcotic withdrawal. I have given you a Vicodin in the emergency department and a prescription for 10 more Vicodin that I would like you to wean off over the next 15-20 days. Use 1 a day, than .5 a day, than .5 every other day if your having cramps or symptoms similar to the side effects your noticing today. The prescription was electronically sent to [facility] Please do continue your antibiotics for the wound on your head. The bump on the right side of your neck is a swollen lymph node that is doing its job with helping he will that wound on your head. If you find that you are getting worse or develop any new symptoms, please feel free to return to the emergency department for further evaluation. Prescriptions: New hydrocodone-acetaminophen 5-325 mg tablet 1 tab PO BEDTIME PRN (Reason: pain) Qty: 10 0RF No Action glucose 4 gram tablet,chewable 4 gram PO Q15M PRN (Reason: hypoglycemia) Qty: 30 0RF Rx Instructions: until response Glucagon Emergency Kit (human) 1 mg recon soln 1 mg subcut DIRECTED ondansetron 4 mg tablet,disintegrating 4 mg PO Q8H PRN (Reason: nausea and vomiting) Qty: 10 0RF diphenhydramine HCl 50 mg Capsule 50 mg PO BEDTIME PRN (Reason: Sleep) Rx Instructions: for itching and sleep insulin aspart U-100 [Novolog Flexpen U-100 Insulin] 100 unit/mL (3 mL) insulin pen See Rx Instructions .ROUTE .COMPLEX Label Comments: Inject 7-20 Units under the skin 3 (three) times a day with meals SLIDING scale Rx Instructions: 7-10 units at meals using sliding scale pantoprazole 40 mg tablet,delayed release (DR/EC) 40 mg PO BEDTIME Label Comments: TAKE ONE TABLET BY MOUTH ONE TIME DAILY Tresiba FlexTouch U-200 200 unit/mL (3 mL) insulin pen 13 ea SUBCUT BID methocarbamol 500 mg tablet 1 tab PO TID Label Comments: TAKE ONE TO TWO TABLETS BY MOUTH THREE TIMES DAILY NEEDED FOR MUSCLE SPASMS sennosides [senna] 8.6 mg Tablet 8.6 mg PO DAILY acetaminophen 325 mg Tablet 975 mg PO Q8H Qty: 30 0RF tramadol 50 mg Tablet 50 mg PO Q4H PRN (Reason: Pain, Moderate (4-6)) Qty: 15 0RF hydromorphone 2 mg Tablet 2 mg PO Q4HR PRN (Reason: Pain, Moderate (4-6)) Qty: 10 0RF naloxone [Narcan] 4 mg/actuation spray,non-aerosol 1 spray intranasal Q2M Qty: 2 0RF Rx Instructions: spray 1 dose into ONE nostril; alternate nostrils w each dose until help arrives Referrals: Maria Ines Limon DO [Primary Care Provider] -
[2021-12-13] MEDS: HYDROCODONE/ACET 10/325 TABLET 1 TAB PO (05:42)
--- NOTE | 2021-12-13 05:47 | PC.NURSE ---
pt given sandwich and water with pain med
--- NOTE | 2021-12-13 08:25 | PC.NURSE ---
[facility] arrived at 0820 and I gave report to [place] about the patient. Patient transferred to [facility] and left at 0831.
== END 2021-12-13 08:32 | disposition home or self-care (01) ==
PROVIDERS: Emergency Provider Emergency Medicine; PCP Student in an Organized Health Care Education/Training Program
DX: F11.93 Opioid use, unspecified with withdrawal (principal); I95.1 Orthostatic hypotension; S32.9XXD Fracture of unspecified parts of lumbosacral spine and pelvis, subsequent encounter for fracture with routine healing
CPT/HCPCS: 71045; 80053; 82550; 83690; 83735; 84484; 85025; 85610; 85730; 93005; 96360; 96361; 99284

== ENCOUNTER 2022-01-02 06:40 | Emergency (ER) | payer OTHER, MEDICAID, SELFPAY ==
[2021-11-13 14:44] VITALS: BMI 18.8
[2022-01-02] VITALS (10 sets, daily range): BP systolic 141–178; BP diastolic 93–110; PULSE 74–119; RESP 20; TEMP 36.7; O2SAT 73–100; BMI 19.8
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
[2022-01-02 08:06] LABS: Add Manual Diff / Slide Review NO; Basophils Absolute Auto 100 /uL (0-100); Basophils Percent Auto 0.9 % (0-2); Eosinophils Absolute Auto 100 /uL (0-450); Eosinophils Percent Auto 1.1 % (2-4); Hematocrit 40.7 % (36-46); Hemoglobin 13.5 g/dL (12.0-16.0); Lymphocytes Absolute Auto 1500 /uL (1100-4500); Lymphocytes Percent Auto 16.4 % (25-40); Mean Corpuscular HGB Conc 33.2 % (30-36); Mean Corpuscular Hemoglobin 28.3 PG (26-34); Mean Corpuscular Volume 85.3 fL (80-100); Monocytes Absolute Auto 700 /uL (0-900); Monocytes Percent Auto 8.3 % (3-14); Neutrophils Absolute Auto 6500 /uL (1500-7000); Neutrophils Percent Auto 73.3 % (50-75); Platelet Count 400 X10^3/uL (150-400); Red Blood Cell Count 4.77 X10^6/uL (4.0-5.2); Red Cell Distribution Width 17.5 % (11.6-14.8); White Blood Cell Count 8.9 X10^3/uL (4.5-11.0)
[2022-01-02] MEDS: HYDROMORPHONE 1 MG INJ IV (08:06)
[2022-01-02] MEDS: ONDANSETRON 4 MG/2 ML INJ IV (08:06)
[2022-01-02 08:26] LABS: Alanine Aminotransferase 19 IU/L (<35); Albumin 3.5 g/dL (3.5-5.0); Albumin Globulin Ratio 0.9 (1.0-2.8); Alkaline Phosphatase 152 U/L (38-126); Aspartate Aminotransferase 22 IU/L (14-36); BUN Creatinine Ratio 30.1 (6-22); Bilirubin Total 0.4 mg/dL (0.2-1.3); Blood Urea Nitrogen 22 mg/dL (7-17); Carbon Dioxide 31 mmol/L (22-32); Chloride 103 mmol/L (98-107); Estimated Glomerular Filt Rate > 60 mL/min (>60); Globulin 3.7 g/dL (1.7-4.1); Glucose 92 mg/dL (70-100); Potassium 3.8 mmol/L (3.4-5.1); Sodium 139 mmol/L (137-145); Total Protein 7.2 g/dL (6.3-8.2)
[2022-01-02 08:27] LABS: Lactate (Lactic Acid) 0.9 mmol/L (0.7-2.1)
--- NOTE | 2022-01-02 08:35 | PC.NURSE ---
patients o2 dropped after receiving medications, put patient on 4L o2 per nurse
[2022-01-02 08:42] LABS: Procalcitonin 0.09 ng/mL (<0.5)
[2022-01-02 08:44] LABS: HEMOLYSIS < 15 (0-50); Ketones (Beta-Hydroxybutyrate) 0.11 mmol/L (<0.27)
== END 2022-01-02 09:00 | disposition home or self-care (01) ==
PROVIDERS: Emergency Provider Emergency Medicine; PCP Student in an Organized Health Care Education/Training Program
DX: T24.202A Burn of second degree of unspecified site of left lower limb, except ankle and foot, initial encounter (principal); T24.201A Burn of second degree of unspecified site of right lower limb, except ankle and foot, initial encounter; R10.11 Right upper quadrant pain
CPT/HCPCS: 36415; 80053; 82009; 83605; 84145; 85025; 87070; 87075; 87077; 87147; 87185; 87186; 87205; 96374; 96375; 99284; J1170; J2405

== ENCOUNTER 2022-01-10 09:18 | Emergency (ER) | payer OTHER, MEDICAID, SELFPAY ==
[2021-11-13 14:44] VITALS: BMI 18.8
[2022-01-10] VITALS (15 sets, daily range): BP systolic 134–173; BP diastolic 87–116; PULSE 109–124; RESP 15; TEMP 35.7; O2SAT 92–99
--- NOTE | 2022-01-10 09:17 | ED_ITS ---
HPI - General Adult General Chief complaint: Fall Stated complaint: GLF this morning Time Seen by Provider: 01/10/22 09:20 History of Present Illness HPI narrative: 31-year-old woman type 1 diabetic with complex medical history, multiple complications from her diabetes hip fracture back in August with significant immobility currently still living with her mother and having difficulties with persistent weakness as well as pain control. She comes in today after a fall this morning complaining of ?pain all over? she describes bilateral lower extremity pain from the knees down. She had apparently had SCD devices in place and has some superficial ulceration on the left anterior calvillo that is not currently infected secondary to those this is being treated. She stays to that she was getting up to the bathroom and she fell she landed hard on her butt and then on her back. She complains of both mid and upper thoracic back pain. She did not hit her head or lose consciousness. She complains of full body aching. She did successfully get off all prior narcotics related to her hip fracture however is back to half a pain pill at night due to the pain from the march from the SCDs on the left calvillo. She states that she has not been eating as much as usual but has been taking her medications. Denies nausea, vomiting, dysuria. Related Data Home Medications Medication Instructions Recorded Confirmed glucagon (human recombinant) 1 mg 1 mg SUBCUT DIRECTED 02/16/19 11/29/21 solution for injection (Glucagon Emergency Kit) diphenhydramine HCl 50 mg capsule 50 mg PO BEDTIME PRN Sleep 09/29/20 11/29/21 insulin aspart U-100 100 unit/mL See Rx Instructions .Route .COMPLEX 11/13/21 11/29/21 (3 mL) subcutaneous pen (Novolog Flexpen U-100 Insulin aspart) insulin degludec 200 unit/mL (3 13 ea SUBCUT BID 11/13/21 11/29/21 mL) subcutaneous pen (Tresiba FlexTouch U-200 insulin) methocarbamol 500 mg tablet 1 tab PO TID 11/13/21 11/29/21 pantoprazole 40 mg tablet,delayed 40 mg PO BEDTIME 11/13/21 11/29/21 release sennosides 8.6 mg tablet (senna) 8.6 mg PO DAILY 11/13/21 11/29/21 Previous Rx's Medication Instructions Recorded glucose 4 gram chewable tablet 4 gram PO Q15M PRN hypoglycemia 12/12/18 #30 tabs ondansetron 4 mg disintegrating 4 mg PO Q8H PRN nausea and 11/08/21 tablet vomiting #10 tabs acetaminophen 325 mg tablet 975 mg PO Q8H #30 tabs 11/18/21 hydromorphone 2 mg tablet 2 mg PO Q4HR PRN Pain, Moderate 11/18/21 (4-6) #10 tabs naloxone 4 mg/actuation nasal 1 spray intranasal Q2M #2 ea 11/18/21 spray (Narcan) tramadol 50 mg tablet 50 mg PO Q4H PRN Pain, Moderate 11/18/21 (4-6) #15 tabs hydrocodone 5 mg-acetaminophen 325 1 tab PO BEDTIME PRN pain #10 tabs 12/13/21 mg tablet hydrocodone 5 mg-acetaminophen 325 1 tab PO Q6H PRN pain #10 tabs 01/02/22 mg tablet Allergies Allergy/AdvReac Type Severity Reaction Status Date / Time abdalla [ABDALLA] Allergy Intermediate Hives, Verified 01/10/22 09:24 pruritus iodine [IODINE] Allergy Intermediate rash, itchy Verified 01/10/22 09:24 morphine Allergy Intermediate Difficulty Verified 01/10/22 09:24 Breathing shellfish derived Allergy Intermediate rash Verified 01/10/22 09:24 [SHELLFISH DERIVED] adhesive [ADHESIVE] Allergy Unknown tape Verified 01/10/22 09:24 latex [LATEX] Allergy Unknown Hives Verified 01/10/22 09:24 Review of Systems Review of Systems Narrative: Remainder of complete review of systems is otherwise unremarkable except for that included in the HPI. Patient History Medical History DKA (diabetic ketoacidoses) History of pyelonephritis Irregular menstrual cycle Migraine headache Nephrolithiasis Noncompliance w/medication treatment due to intermit use of medication Type 1 diabetes mellitus Surgical History History of ureter stent Hx of cataract surgery Hx of local excision of skin lesion Status post cholecystectomy Status post laser lithotripsy of ureteral calculus [place] teeth extracted Family History Father In good health Mother Cardiac disease Social History details: Engaged household members: significant other Smoking Status: Never smoker alcohol intake: never Exam Initial Vital Signs Initial Vital Signs: Vital Signs Temperature 96.3 F L 01/10/22 09:20 Pulse Rate 124 H 01/10/22 09:20 Respiratory Rate 15 01/10/22 09:20 Blood Pressure 173/116 H 01/10/22 09:20 Pulse Oximetry 96 01/10/22 09:20 Oxygen Delivery Method 01/10/22 09:20 General: Frail, chronically ill-appearing, crying secondary to pain and myalgias. Able to give a complete and coherent history. HEENT: Moist mucous membranes, normal sclera with reactive pupils, Neck: supple, no cervical spine tenderness to palpation. Respiratory: Lungs are clear to auscultation, no wheezing no rales no rhonchi. Full and symmetrical air movement Chest: Some mild tenderness at approximately T3 and T4 as well as T9 and T10. No significant skin breakdown, abrasions, contusions. Cardiac: Tachycardic but otherwise Regular rate and rhythm no murmurs no bruits Abdomen: Soft, nontender, good bowel tones, no flank pain Skin: Pale but otherwise Warm and dry, 2 x 3 cm superficial ulcer left lower extremity healing nicely. Chronic skin wounds on the scalp line and in her hair that do not appear to be acutely infected. Neurologic: Globally weak, Grossly neurologically intact with no obvious asymmetries or abnormalities Extremities: No trauma, well perfused, palpable dorsalis pedis and posterior tibialis pulses bilaterally Psych: Cooperative, appropriate insight and affect Course Orders Ordered: ED Orders 01/10/22 09:28 XR lumbar spine 2-3V Stat XR thoracic spine 3V Stat 01/10/22 09:44 Complete Blood Count AUTO DIFF Stat Comprehensive Metabolic Panel Stat Lactate (Lactic Acid) Stat Lipase Stat Troponin I Stat 01/10/22 09:45 COVID19 -Nasal RAPID/Pre-Proc Stat 01/10/22 10:36 Consult to RIDING TEACHER - Teacher Of The Sight Impaired Stat 01/10/22 10:51 Blood Culture Stat 01/10/22 13:27 Urinalysis and Microscopic Stat Discontinued Medications Hydromorphone HCl (Hydromorphone 0.5 Mg Inj) 0.5 mg IV Q15MIN PRN PRN Reason: Pain, Last Admin: 01/10/22 11:37 Dose: 0.5 mg Documented By: Admin: 01/10/22 09:38 Dose: 0.5 mg Documented By: SCOTT Sodium Chloride (Normal Saline 0.9%) 1,000 mls @ 1,000 mls/hr IV BOLUS ONE Stop: 01/10/22 10:27 Last Infusion: 01/10/22 11:57 Dose: 0 mls/hr Documented By: Admin: 01/10/22 09:38 Dose: 1,000 mls/hr Documented By: SCOTT Ondansetron HCl (Ondansetron 4 Mg/2 Ml Inj) 4 mg IV NOW ONE Stop: 01/10/22 09:29 Last Admin: 01/10/22 09:38 Dose: 4 mg Documented By: SCOTT Vital Signs Vital signs: Vital Signs - 8 hr 01/10/22 11:00 01/10/22 11:30 01/10/22 11:46 Pulse Rate 117 H 121 H 118 H Blood Pressure Pulse Oximetry 99 99 97 01/10/22 11:46 01/10/22 12:00 01/10/22 12:30 Pulse Rate 111 H 113 H Blood Pressure 162/106 H Pulse Oximetry 99 98 01/10/22 13:00 01/10/22 13:17 01/10/22 13:17 Pulse Rate 109 H 113 H Blood Pressure 134/91 H Pulse Oximetry 95 96 01/10/22 13:30 01/10/22 13:30 01/10/22 14:00 Pulse Rate 111 H Blood Pressure 134/87 146/90 H Pulse Oximetry 93 01/10/22 14:00 01/10/22 14:01 01/10/22 14:26 Pulse Rate 111 H 111 H Blood Pressure 136/92 H Pulse Oximetry 92 96 Medical Decision Making Lab Data Result diagrams: 01/10/22 09:44 01/10/22 09:44 Labs: Lab Results 01/10/22 01/10/22 01/10/22 Range/Units 09:44 09:44 09:44 WBC 12.1 H (4.5-11.0) X10^3/uL RBC 4.88 (4.0-5.2) X10^6/uL Hgb 13.6 (12.0-16.0) g/dL Hct 41.1 (36-46) % MCV 84.2 (80-100) fL MCH 27.9 (26-34) PG MCHC 33.1 (30-36) % RDW 16.8 H (11.6-14.8) % Plt Count 517 H (150-400) X10^3/uL Neut % (Auto) 79.2 H (50-75) % Lymph % (Auto) 14.3 L (25-40) % Perkins % (Auto) 5.0 (3-14) % Eos % (Auto) 0.8 L (2-4) % Baso % (Auto) 0.7 (0-2) % Neut # (Auto) 9600 H (6354-9064) /uL Lymph # (Auto) 1700 (4067-0196) /uL Perkins # (Auto) 600 (0-900) /uL Eos # (Auto) 100 (0-450) /uL Baso # (Auto) 100 (0-100) /uL Sodium 135 L (137-145) mmol/L Potassium 4.3 (3.4-5.1) mmol/L Chloride 101 (98-107) mmol/L Carbon Dioxide 30 (22-32) mmol/L BUN 18 H (7-17) mg/dL Creatinine 0.62 (0.52-1.04) mg/dL Estimated GFR > 60 (>60) mL/min BUN/Creatinine Ratio 29.0 H (6-22) Glucose 189 H (70-100) mg/dL Lactate 1.3 (0.7-2.1) mmol/L Calcium 8.8 (8.4-10.2) mg/dL Total Bilirubin 0.2 (0.2-1.3) mg/dL AST 25 (14-36) IU/L ALT 32 (<35) IU/L Alkaline Phosphatase 158 H (38-126) U/L Troponin I < 0.012 (0.01-0.034) ng/mL Total Protein 6.9 (6.3-8.2) g/dL Albumin 3.2 L (3.5-5.0) g/dL Globulin 3.7 (1.7-4.1) g/dL Albumin/Globulin Ratio 0.9 L (1.0-2.8) Lipase 42 (23-300) U/L Urine Color Urine Appearance Urine pH (4.5-8.0) Ur Specific [place] (1.000-1.035) Urine Protein (Negative) Urine Glucose (UA) (Negative) g/dL Urine Ketones (NEGATIVE) Urine Occult Blood (Negative) Urine Nitrate (Negative) Urine Bilirubin (NEGATIVE) Urine Urobilinogen (0.2) E.U./dL Ur Leukocyte Esterase (NEGATIVE) Urine RBC (0-5/HPF) Urine WBC (0-5/HPF) Ur Squamous Epith Cells (0-5/HPF) Urine Bacteria (None) Ur Culture Indicated? SARS-CoV-2 (PCR) (Negative) 01/10/22 01/10/22 Range/Units 09:45 13:27 WBC (4.5-11.0) X10^3/uL RBC (4.0-5.2) X10^6/uL Hgb (12.0-16.0) g/dL Hct (36-46) % MCV (80-100) fL MCH (26-34) PG MCHC (30-36) % RDW (11.6-14.8) % Plt Count (150-400) X10^3/uL Neut % (Auto) (50-75) % Lymph % (Auto) (25-40) % Perkins % (Auto) (3-14) % Eos % (Auto) (2-4) % Baso % (Auto) (0-2) % Neut # (Auto) (0409-5553) /uL Lymph # (Auto) (0300-0426) /uL Perkins # (Auto) (0-900) /uL Eos # (Auto) (0-450) /uL Baso # (Auto) (0-100) /uL Sodium (137-145) mmol/L Potassium (3.4-5.1) mmol/L Chloride (98-107) mmol/L Carbon Dioxide (22-32) mmol/L BUN (7-17) mg/dL Creatinine (0.52-1.04) mg/dL Estimated GFR (>60) mL/min BUN/Creatinine Ratio (6-22) Glucose (70-100) mg/dL Lactate (0.7-2.1) mmol/L Calcium (8.4-10.2) mg/dL Total Bilirubin (0.2-1.3) mg/dL AST (14-36) IU/L ALT (<35) IU/L Alkaline Phosphatase (38-126) U/L Troponin I (0.01-0.034) ng/mL Total Protein (6.3-8.2) g/dL Albumin (3.5-5.0) g/dL Globulin (1.7-4.1) g/dL Albumin/Globulin Ratio (1.0-2.8) Lipase (23-300) U/L Urine Color Yellow Urine Appearance Clear Urine pH 7.0 (4.5-8.0) Ur Specific [place] 1.010 (1.000-1.035) Urine Protein 3+ H (Negative) Urine Glucose (UA) 2+ H (Negative) g/dL Urine Ketones Negative (NEGATIVE) Urine Occult Blood 1+ H (Negative) Urine Nitrate Negative (Negative) Urine Bilirubin Negative (NEGATIVE) Urine Urobilinogen 0.2 (0.2) E.U./dL Ur Leukocyte Esterase Negative (NEGATIVE) Urine RBC 1-5/hpf (0-5/HPF) Urine WBC 1-5/hpf (0-5/HPF) Ur Squamous Epith Cells 5-10 /hpf H (0-5/HPF) Urine Bacteria Occasional (0-1) (None) Ur Culture Indicated? Cult not indicated SARS-CoV-2 (PCR) Negative (Negative) Imaging Data XR Thorasic and Lumbar spine: Radiologist's Impression: FINDINGS:? ? Bones:? 5 [id number] vertebrae are present.? No definite evidence of traumatic malalignment.? No vertebral body compression fractures.? No suspicious bony lesions.? ? Soft tissues:? Overlying bowel gas pattern is normal.? No suspicious soft tissue calcifications.? ? ? IMPRESSION:? No acute lumbar spine fracture visualized.? If symptoms persist, follow-up CT may be helpful for further evaluation. ? ? Dictated by: Luis F Avalos M.D. on 01/10/2022 at 10:51 ? ? FINDINGS:? ? Bones:? No fractures or dislocations.? No suspicious bony lesions.? 12 pairs of ribs are noted, and appear intact where visualized.? ? Soft tissues:? No paravertebral stripe thickening.? Right upper quadrant metal clips could be from prior cholecystectomy. ? ? IMPRESSION:? No acute thoracic spine fracture visualized.? If symptoms persist, CT may be helpful for further evaluation. ? ? Dictated by: Luis F Avalos M.D. on 01/10/2022 at 10:46 ? ? MDM Narrative Medical decision making narrative: 31-year-old woman with type 1 diabetes and multiple complications fell today complaining of back pain. T and L-spine are both unremarkable. She is complaining of overall myalgias and being on early miserable. Lab work is reassuring. At this point I do not have a pathologic explanation for her symptoms. I am concerned that she continues to have significant decline and loss of overall strength. survey workers supervisor did talk with her today and she was amenable to being part of our visiting EMT program. She has restarted with physical therapy. This point she is unable to walk up stairs. She states that she does get out of bed every single day and that she does make a point of drinking plenty of fluids. Recommended continued physical therapy and she is safe for home discharge Discharge Plan Departure Patient Disposition: Home Clinical Impression: Type 1 diabetes, Severe muscle deconditioning Fall Qualifiers: Encounter type: initial encounter Qualified Code(s): W19.XXXA - Unspecified fall, initial encounter Instructions: DI for Muscle Weakness Activity Restrictions/Additional Instructions: Thank you for coming in today Fortunately, no diabetic ketoacidosis, fractures, infections or reasons to stay in the hospital! I am concerned about your overall deconditioning. You definitely need to continue working with physical therapy. Please follow-up with your regular doctor If you find that you are getting worse or develop any new symptoms, please feel free to return to the emergency department for further evaluation. Prescriptions: No Action glucose 4 gram tablet,chewable 4 gram PO Q15M PRN (Reason: hypoglycemia) Qty: 30 0RF Rx Instructions: until response Glucagon Emergency Kit (human) 1 mg recon soln 1 mg subcut DIRECTED ondansetron 4 mg tablet,disintegrating 4 mg PO Q8H PRN (Reason: nausea and vomiting) Qty: 10 0RF hydrocodone-acetaminophen 5-325 mg tablet 1 tab PO BEDTIME PRN (Reason: pain) Qty: 10 0RF hydrocodone-acetaminophen 5-325 mg tablet 1 tab PO Q6H PRN (Reason: pain) Qty: 10 0RF diphenhydramine HCl 50 mg Capsule 50 mg PO BEDTIME PRN (Reason: Sleep) Rx Instructions: for itching and sleep insulin aspart U-100 [Novolog Flexpen U-100 Insulin] 100 unit/mL (3 mL) insulin pen See Rx Instructions .ROUTE .COMPLEX Label Comments: Inject 7-20 Units under the skin 3 (three) times a day with meals SLIDING scale Rx Instructions: 7-10 units at meals using sliding scale pantoprazole 40 mg tablet,delayed release (DR/EC) 40 mg PO BEDTIME Label Comments: TAKE ONE TABLET BY MOUTH ONE TIME DAILY Tresiba FlexTouch U-200 200 unit/mL (3 mL) insulin pen 13 ea SUBCUT BID methocarbamol 500 mg tablet 1 tab PO TID Label Comments: TAKE ONE TO TWO TABLETS BY MOUTH THREE TIMES DAILY NEEDED FOR MUSCLE SPASMS sennosides [senna] 8.6 mg Tablet 8.6 mg PO DAILY acetaminophen 325 mg Tablet 975 mg PO Q8H Qty: 30 0RF tramadol 50 mg Tablet 50 mg PO Q4H PRN (Reason: Pain, Moderate (4-6)) Qty: 15 0RF hydromorphone 2 mg Tablet 2 mg PO Q4HR PRN (Reason: Pain, Moderate (4-6)) Qty: 10 0RF naloxone [Narcan] 4 mg/actuation spray,non-aerosol 1 spray intranasal Q2M Qty: 2 0RF Rx Instructions: spray 1 dose into ONE nostril; alternate nostrils w each dose until help arrives Referrals: Maria Ines Limon DO [Primary Care Provider] - Visit Report Forms: Patient Portal/API
--- NOTE | 2022-01-10 09:28 | DI.RAD.S_ITS ---
PROCEDURE: XR THORACIC SPINE 3V INDICATIONS: fall, concern for compression fracture TECHNIQUE: 3 views of the thoracic spine were acquired. COMPARISON: [facility], CT, CT CHEST ABD PEL W CON, 11/13/2021, 13:06. [facility], CR, XR LUMBAR SPINE 2-3V, 01/10/2022, 10:17. FINDINGS: Bones: No fractures or dislocations. No suspicious bony lesions. 12 pairs of ribs are noted, and appear intact where visualized. Soft tissues: No paravertebral stripe thickening. Right upper quadrant metal clips could be from prior cholecystectomy. IMPRESSION: No acute thoracic spine fracture visualized. If symptoms persist, CT may be helpful for further evaluation. Dictated by: Luis F Avalos M.D. on 01/10/2022 at 10:46 Approved by: Luis F Avalos M.D. on 01/10/2022 at 10:50
--- NOTE | 2022-01-10 09:28 | DI.RAD.S_ITS ---
PROCEDURE: XR LUMBAR SPINE 2-3V INDICATIONS: fall, concern for vetebral fracture TECHNIQUE: 3 views of the lumbar spine were acquired. COMPARISON: [facility], CT, CT CHEST ABD PEL W CON, 11/13/2021, 13:06. FINDINGS: Bones: 5 [id number] vertebrae are present. No definite evidence of traumatic malalignment. No vertebral body compression fractures. No suspicious bony lesions. Soft tissues: Overlying bowel gas pattern is normal. No suspicious soft tissue calcifications. IMPRESSION: No acute lumbar spine fracture visualized. If symptoms persist, follow-up CT may be helpful for further evaluation. Dictated by: Luis F Avalos M.D. on 01/10/2022 at 10:51 Approved by: Luis F Avalos M.D. on 01/10/2022 at 10:53
[2022-01-10] MEDS: HYDROMORPHONE 0.5 MG INJ IV ×2 (09:38→11:37)
[2022-01-10] MEDS: SODIUM CHLORIDE 0.9% 1,000 ML 1000 ML IV (09:38)
[2022-01-10] MEDS: ONDANSETRON 4 MG/2 ML INJ IV (09:38)
[2022-01-10 09:52] LABS: Add Manual Diff / Slide Review NO; Basophils Absolute Auto 100 /uL (0-100); Basophils Percent Auto 0.7 % (0-2); Eosinophils Absolute Auto 100 /uL (0-450); Eosinophils Percent Auto 0.8 % (2-4); Hematocrit 41.1 % (36-46); Hemoglobin 13.6 g/dL (12.0-16.0); Lymphocytes Absolute Auto 1700 /uL (1100-4500); Lymphocytes Percent Auto 14.3 % (25-40); Mean Corpuscular HGB Conc 33.1 % (30-36); Mean Corpuscular Hemoglobin 27.9 PG (26-34); Mean Corpuscular Volume 84.2 fL (80-100); Monocytes Absolute Auto 600 /uL (0-900); Neutrophils Absolute Auto 9600 /uL (1500-7000); Neutrophils Percent Auto 79.2 % (50-75); Platelet Count 517 X10^3/uL (150-400); Red Blood Cell Count 4.88 X10^6/uL (4.0-5.2); Red Cell Distribution Width 16.8 % (11.6-14.8); White Blood Cell Count 12.1 X10^3/uL (4.5-11.0)
[2022-01-10 10:05] LABS: COVID19 -Nasal RAPID Negative (Negative)
[2022-01-10 10:06] LABS: Lactate (Lactic Acid) 1.3 mmol/L (0.7-2.1)
[2022-01-10 10:07] LABS: Alanine Aminotransferase 32 IU/L (<35); Albumin 3.2 g/dL (3.5-5.0); Albumin Globulin Ratio 0.9 (1.0-2.8); Alkaline Phosphatase 158 U/L (38-126); Aspartate Aminotransferase 25 IU/L (14-36); Bilirubin Total 0.2 mg/dL (0.2-1.3); Blood Urea Nitrogen 18 mg/dL (7-17); Calcium 8.8 mg/dL (8.4-10.2); Carbon Dioxide 30 mmol/L (22-32); Chloride 101 mmol/L (98-107); Estimated Glomerular Filt Rate > 60 mL/min (>60); Globulin 3.7 g/dL (1.7-4.1); Glucose 189 mg/dL (70-100); HEMOLYSIS < 15 (0-50); Lipase 42 U/L (23-300); Potassium 4.3 mmol/L (3.4-5.1); Sodium 135 mmol/L (137-145); Total Protein 6.9 g/dL (6.3-8.2)
[2022-01-10 10:18] LABS: Troponin I < 0.012 ng/mL (0.01-0.034)
--- NOTE | 2022-01-10 11:31 | CM.SWNOTE ---
STAGE DRIVER/DCP Note Patient is 31 y/o female who presents to ED via EMS due to concern for recent GLF and increase in pain. Patient has hx of Diabetes 1, DKA, Chloelithiasis, pelvic fracture, YURI and Hyperkalemia. Patient has hx of 18 ED visits within the last 12 months. Patient's PCP is Dr. Limon with [facility], it is reported that patient has upcoming PCP appt in February 2022. Patient has [employer], Medicaid and [place]. It is reported that patient receives SSI and cannot work. STAGE DRIVER discusses with patient and mother upon patient's next review to discuss new evaluation regarding patient's medical changes in the last year. STAGE DRIVER enters room, present in room with patient is patient's mother Argelia. Patient presents as A/Ox3. Patient endorses pain and presents as tearful at times. Patient resides with mother and step father. It is reported that patient has FWW and wheelchair at home. At baseline patient is typically independent with ADLs but mother makes sure that someone is home to assist her if needed. Patient does not drive and relies on others for transportation. Patient's mother reports that patient usually ambulates well with FWW from bed to bathroom but patient fell earlier in the morning on her way to the bathroom, and there was concern for patient's increase in pain since fall. It was reported that patient had [facility] recently (Not [facility] because they did not take her insurance) and that patient is not able to get HH services again until next year due to insurance. It is reported that patient started outpatient PT this week at an outpatient clinic in [place]. STAGE DRIVER discusses [employer] business services with Dave Daly, patient and mother endorse agreement and understanding regarding a referral for his services. STAGE DRIVER provides Dave's information to patient's mother, as mother endorses that she will be the main point of contact. STAGE DRIVER calls Dave Daly [employer] regarding referral, Dave endorses he will accept new referral, review patient's chart on [employer] and [employer] system and reach out to patient shortly. STAGE DRIVER reviews this with ED provider Dr. Drake who indicates agreement and understanding. Plan: Patient to d/c to home upon medical clearance with mother, [employer] to f/u with patient for outpatient resources, patient to continue outpatient PT and f/u with PCP. Zoie Meléndez, KEYBOARD INSTRUMENT TUNER
[2022-01-10 13:41] LABS: Appearance Urine UA CLEAR; Bilirubin Urine UA NEGATIVE (NEGATIVE); Color Urine UA YELLOW; Glucose Urine UA 2+ g/dL (Negative); Ketones Urine UA NEGATIVE (NEGATIVE); Leukocyte Esterase Urine UA NEGATIVE (NEGATIVE); Nitrite Urine UA NEGATIVE (Negative); Occult Blood Urine UA 1+ (Negative); Protein Urine UA 3+ (Negative); Urobilinogen Urine UA 0.2 E.U./dL (0.2)
[2022-01-10 13:54] LABS: Bacteria Urine Occasional (0-1); Culture Indicated Urine Cult Not Indicated; RBC Urine 1-5/HPF (0-5/HPF); Squamous Epithelial Cell Urine 5-10 /HPF (0-5/HPF); WBC Urine 1-5/HPF (0-5/HPF)
== END 2022-01-10 14:29 | disposition home or self-care (01) ==
PROVIDERS: Emergency Provider Emergency Medicine; PCP Student in an Organized Health Care Education/Training Program
DX: M54.6 Pain in thoracic spine (principal); R29.898 Other symptoms and signs involving the musculoskeletal system; E10.9 Type 1 diabetes mellitus without complications; Z20.822 Contact with and (suspected) exposure to COVID-19; W19.XXXA Unspecified fall, initial encounter
CPT/HCPCS: 36415; 72072; 72100; 80053; 81001; 83605; 83690; 84484; 85025; 87040; 87635; 96361; 96374; 96375; 96376; 99284; C9803; J1170; J2405

== ENCOUNTER → 2022-01-24 15:04 | Outpatient (CLI) | payer OTHER, MEDICAID, SELFPAY ==
[2021-11-13 14:44] VITALS: BMI 18.8
[2022-01-24 18:10] LABS: Add Manual Diff / Slide Review NO; Basophils Absolute Auto 100 /uL (0-100); Basophils Percent Auto 0.8 % (0-2); Eosinophils Absolute Auto 100 /uL (0-450); Eosinophils Percent Auto 1.2 % (2-4); Hemoglobin 12.2 g/dL (12.0-16.0); Lymphocytes Absolute Auto 1300 /uL (1100-4500); Lymphocytes Percent Auto 15.7 % (25-40); Mean Corpuscular Hemoglobin 28.3 PG (26-34); Mean Corpuscular Volume 85.7 fL (80-100); Monocytes Absolute Auto 400 /uL (0-900); Monocytes Percent Auto 5.2 % (3-14); Neutrophils Absolute Auto 6400 /uL (1500-7000); Neutrophils Percent Auto 77.1 % (50-75); Platelet Count 558 X10^3/uL (150-400); Red Blood Cell Count 4.32 X10^6/uL (4.0-5.2); Red Cell Distribution Width 15.6 % (11.6-14.8); White Blood Cell Count 8.3 X10^3/uL (4.5-11.0)
[2022-01-24 18:16] LABS: Hemoglobin A1C% w Est Avg Glu 8.8 % (4.0-6.0)
[2022-01-24 18:17] LABS: Alanine Aminotransferase 12 IU/L (<35); Albumin 3.1 g/dL (3.5-5.0); Albumin Globulin Ratio 0.9 (1.0-2.8); Alkaline Phosphatase 186 U/L (38-126); Aspartate Aminotransferase 18 IU/L (14-36); BUN Creatinine Ratio 34.5 (6-22); Bilirubin Total 0.2 mg/dL (0.2-1.3); Blood Urea Nitrogen 19 mg/dL (7-17); Calcium 8.7 mg/dL (8.4-10.2); Carbon Dioxide 29 mmol/L (22-32); Chloride 103 mmol/L (98-107); Estimated Glomerular Filt Rate > 60 mL/min (>60); Globulin 3.5 g/dL (1.7-4.1); Glucose 329 mg/dL (70-100); HEMOLYSIS < 15 (0-50); Potassium 4.1 mmol/L (3.4-5.1); Sodium 138 mmol/L (137-145); Total Protein 6.6 g/dL (6.3-8.2)
[2022-01-24 18:53] LABS: TSH w/ Reflex to FT4 2.09 uIU/mL (0.47-4.68)
== END ==
PROVIDERS: PCP Student in an Organized Health Care Education/Training Program; Referring Provider Student in an Organized Health Care Education/Training Program; Visit Provider Student in an Organized Health Care Education/Training Program
DX: R42 Dizziness and giddiness (principal); I95.9 Hypotension, unspecified; E10.65 Type 1 diabetes mellitus with hyperglycemia
CPT/HCPCS: 36415; 80053; 83036; 84443; 85025

== ENCOUNTER 2022-03-01 15:58 | Emergency (ER) | payer OTHER, MEDICAID, SELFPAY ==
[2021-11-13 14:44] VITALS: BMI 18.8
[2022-03-01] VITALS (18 sets, daily range): BP systolic 82–166; BP diastolic 51–103; PULSE 90–118; RESP 12–23; TEMP 36.3; O2SAT 94–100; BMI 20.5
--- NOTE | 2022-03-01 16:22 | DI.CT.S_ITS ---
PROCEDURE: CT HEAD/BRAIN WO CON INDICATIONS: vision change TECHNIQUE: Noncontrast 4.5 mm thick angled axial sections acquired from the foramen magnum to the vertex, with coronal and sagittal reformats. For radiation dose reduction, the following was used: automated exposure control, adjustment of mA and/or kV according to patient size. COMPARISON: 11/13/[address] FINDINGS: Image quality: Excellent. CSF spaces: Basal cisterns are patent. No extra-axial fluid collections. Ventricles are normal in size and shape. Brain: No midline shift. No intracranial masses or hemorrhage. Toure-white matter interface is normal. Skull and face: Calvarium and visualized facial bones are intact, without suspicious lesions. Sinuses: Visualized sinuses and mastoids are clear. IMPRESSION: No acute intracranial finding. Dictated by: Willard Garcia M.D. on 03/01/2022 at 17:02 Approved by: Willard Garcia M.D. on 03/01/2022 at 17:04
--- NOTE | 2022-03-01 18:25 | ED_ITS ---
HPI - Headache General Chief Complaint: Headache Stated Complaint: pressure behind lt eye, painful headache, visual c Time Seen by Provider: 03/01/22 18:10 History of Present Illness HPI Narrative: Patient here with mother. Complains of slow onset left-sided headache behind her left eye pressure pain for the past 4 days, started this past Saturday. Has worsened through today. 3:00 p.m. has had only blurry vision in able to see light through the left eye. This is new for her. No prior history of headaches like this. Not sudden onset. Is light sensitive and sound sensitive with headache. Has had nausea. No numbness tingling or weakness to the limbs. No facial droop no slurred speech. Patient has had Dilaudid and Zofran in the past for pain control. Patient is allergic to iodine contrast. She does have history of bilateral cataract surgery. No history of glaucoma. No known history of retinal disease with her diabetes. Otherwise no recent illness. Related Data Home Medications Medication Instructions Recorded Confirmed glucagon (human recombinant) 1 mg 1 mg SUBCUT DIRECTED 02/16/19 11/29/21 solution for injection (Glucagon Emergency Kit) diphenhydramine HCl 50 mg capsule 50 mg PO BEDTIME PRN Sleep 09/29/20 11/29/21 insulin aspart U-100 100 unit/mL See Rx Instructions .Route .COMPLEX 11/13/21 11/29/21 (3 mL) subcutaneous pen (Novolog Flexpen U-100 Insulin aspart) insulin degludec 200 unit/mL (3 13 ea SUBCUT BID 11/13/21 11/29/21 mL) subcutaneous pen (Tresiba FlexTouch U-200 insulin) methocarbamol 500 mg tablet 1 tab PO TID 11/13/21 11/29/21 pantoprazole 40 mg tablet,delayed 40 mg PO BEDTIME 11/13/21 11/29/21 release sennosides 8.6 mg tablet (senna) 8.6 mg PO DAILY 11/13/21 11/29/21 Previous Rx's Medication Instructions Recorded glucose 4 gram chewable tablet 4 gram PO Q15M PRN hypoglycemia 12/12/18 #30 tabs ondansetron 4 mg disintegrating 4 mg PO Q8H PRN nausea and 11/08/21 tablet vomiting #10 tabs acetaminophen 325 mg tablet 975 mg PO Q8H #30 tabs 11/18/21 hydromorphone 2 mg tablet 2 mg PO Q4HR PRN Pain, Moderate 11/18/21 (4-6) #10 tabs naloxone 4 mg/actuation nasal 1 spray intranasal Q2M #2 ea 11/18/21 spray (Narcan) tramadol 50 mg tablet 50 mg PO Q4H PRN Pain, Moderate 11/18/21 (4-6) #15 tabs hydrocodone 5 mg-acetaminophen 325 1 tab PO BEDTIME PRN pain #10 tabs 12/13/21 mg tablet hydrocodone 5 mg-acetaminophen 325 1 tab PO Q6H PRN pain #10 tabs 01/02/22 mg tablet Allergies Allergy/AdvReac Type Severity Reaction Status Date / Time abdalla [ABDALLA] Allergy Intermediate Hives, Verified 01/10/22 09:24 pruritus iodine [IODINE] Allergy Intermediate rash, itchy Verified 01/10/22 09:24 morphine Allergy Intermediate Difficulty Verified 01/10/22 09:24 Breathing shellfish derived Allergy Intermediate rash Verified 01/10/22 09:24 [SHELLFISH DERIVED] adhesive [ADHESIVE] Allergy Unknown tape Verified 01/10/22 09:24 latex [LATEX] Allergy Unknown Hives Verified 01/10/22 09:24 Review of Systems Review of Systems Narrative: GENERAL: Denies chills, fatigue, malaise, fever, sweats. HEENT: Denies sinus pain, ear pain, sore throat, positive eye pain, positive vision loss/positive patient changes RESPIRATORY: Denies dyspnea, cough CARDIOVASCULAR: Denies chest pain, palpitations GASTROINTESTINAL: Denies nausea, vomiting, abdominal pain : Denies dysuria, frequency, hematuria MUSCULOSKELETAL: denies muscle or bony pain SKIN: Denies rash, skin lesions NEUROLOGIC: Denies weakness, numbness ROS Unobtainable: All systems reviewed & are unremarkable except as noted in HPI and below Patient History Medical History DKA (diabetic ketoacidoses) History of pyelonephritis Irregular menstrual cycle Migraine headache Nephrolithiasis Noncompliance w/medication treatment due to intermit use of medication Type 1 diabetes mellitus Surgical History History of ureter stent Hx of cataract surgery Hx of local excision of skin lesion Status post cholecystectomy Status post laser lithotripsy of ureteral calculus [place] teeth extracted Family History Father In good health Mother Cardiac disease Social History details: Engaged household members: significant other Smoking Status: Never smoker alcohol intake: never Smoking Status: Never smoker alcohol intake frequency: holidays/special occasions only Substance Use Type: does not use Exam Narrative Exam Narrative: GENERAL: in no distress, not toxic not dyspneic HEAD: Normocephalic. EYES: Pupilsl round No scleral icterus. Left pupil slightly enlarged compared to the right. Is sluggish to light together as well as isolated. On slit-lamp very cloudy bilaterally unable see retina ENT: Mucous membranes moist. I did try using Oleg-Pen. However Oleg-Pen is not operational. Myself and another provided tried and not successful. Even tried the right eye. NECK: Trachea midline. CARDIOVASCULAR: Regular rate and rhythm without murmurs RESPIRATORY: Clear to auscultation. Breath sounds equal bilaterally. No wheezes, rales, or rhonchi. BACK: No flank tenderness. NEURO: AOx4. SKIN: Warm and dry PSYCH: Not anxious, is cooperative Initial Vital Signs Initial Vital Signs: Vital Signs Temperature 97.4 F L 03/01/22 16:06 Pulse Rate 112 H 03/01/22 16:06 Respiratory Rate 16 03/01/22 16:06 Blood Pressure 138/79 03/01/22 16:06 Pulse Oximetry 99 03/01/22 16:06 Oxygen Delivery Method 03/01/22 16:06 Course Course Course Narrative: 7:15 p.m.. I did speak with on-call tape duplicator with [facility], he states if patient had surgery in [place] then it would be [facility] that would take her on-call. We did call the answering service and they will need to know the name of the surgeon before answering page. Patient and mother do not recall the name of the surgeon. 7:59 p.m.. Spoke with [facility], Dr. Kimble, recommend patient to be sent to [facility]thew for ophthalmological evaluation Orders Ordered: ED Orders 03/01/22 18:36 CBC Auto Diff [Complete Blood Count AUTO DIFF] Stat CMP [Comprehensive Metabolic Panel] Stat Test Serum,Qual Stat 03/01/22 20:17 COVID19 -Nasal RAPID/Pre-Proc Stat Discontinued Medications Brimonidine Tartrate (Brimonidine 0.2% Ophth 5 Ml) 1 drops EYE-LEFT BID [facility] Last Admin: 03/02/22 00:20 Dose: 1 drops Documented By: Admin: 03/01/22 20:55 Dose: Not Given Documented By: JAVIER Dorzolamide HCl (Dorzolamide 2% Ophth 10 Ml) 1 drops EYE-LEFT BID [facility] Last Admin: 03/02/22 00:15 Dose: 1 drops Documented By: Admin: 03/02/22 00:14 Dose: 1 drops Documented By: Admin: 03/01/22 23:42 Dose: 1 drops Documented By: Admin: 03/01/22 20:55 Dose: Not Given Documented By: JAVIER Hydromorphone HCl (Hydromorphone 1 Mg Inj) 1 mg IV NOW ONE Stop: 03/01/22 18:24 Last Admin: 03/01/22 18:45 Dose: 1 mg Documented By: JAVIER Hydromorphone HCl (Hydromorphone 1 Mg Inj) 1 mg IV NOW ONE Stop: 03/01/22 22:38 Last Admin: 03/01/22 22:43 Dose: 1 mg Documented By: JAVIER Sodium Chloride (Normal Saline 0.9%) 1,000 mls @ 1,000 mls/hr IV BOLUS ONE Stop: 03/02/22 00:30 Last Admin: 03/01/22 23:40 Dose: 1,000 mls/hr Documented By: JAVIER Ondansetron HCl (Ondansetron 4 Mg/2 Ml Inj) 4 mg IV NOW ONE Stop: 03/01/22 18:24 Last Admin: 03/01/22 18:44 Dose: 4 mg Documented By: JAVIER Proparacaine HCl (Proparacaine 0.5% Ophth Suzi) 1 drops EYE-LEFT NOW ONE Stop: 03/01/22 18:35 Last Admin: 03/01/22 18:45 Dose: 1 drop Documented By: JAVIER Timolol Maleate (Timolol 0.5% Ophth) 1 drops EYE-LEFT BID [facility] Last Admin: 03/02/22 00:25 Dose: 1 drop Documented By: Admin: 03/01/22 20:55 Dose: Not Given Documented By: JAVIER Reevaluation(s) Reevaluation #1: Updated patient and mother again my conversations with ophthalmological s ervices. I have try and implored with ophthalmological services to see patient tonight but they indicate appropriate for follow-up in the morning. I do not have a functional Oleg-Pen for eye pressures. Ultrasound services does not do ultrasound of the orbits. Pain is controlled at this time. They are understanding of my efforts to try to have her seen by ophthalmological services. At this time no changes in her vision. Pain is better though. The 3 eye drop medications have been sent home with patient. They were started here in the department. Time: 00:28 Consultations Consultation #1: Spoke with ophthalmology Dr. Tnaner. Patient has seen [facility] for her cataract surgery. Likely patient has complicated ophthalmologic history. Given young age with cataract surgery. At this time would try to get bedside ultrasound of the eye, get pressure of the eye. Possible vitreous hemorrhage? Time: 18:39 Consultation #2: Spoke with Dr. Tnaner again. I have spoke with her my difficulty with getting hold of [facility] as they would not call back. At this time there is concern for hemorrhage into her left eye. At this time start patient on timolol 1 drop twice a day. Start brimonidine 1 drop 3 times a day, start dorzolamide 1 drop twice a day. Patient can be seen in the office tomorrow. Recommends trying [facility] retina office paging them tonight. Time: 19:39 Consultation #3: Spoke with [facility] in [place]. Dr. alvarado, spereginaing?, she indicates no reason to transfer patient tonight. Patient can be followed with our on-call tape duplicator in the morning. Time: 22:10 Additional Consultation(s): Spoke with Dr. Tanner again, ophthalmology on-call for our department tonight. She will see patient in the morning in the office. She gets an office at 7:00 a.m.. Patient should arrived there at 8:00 a.m.. She will inform the office that patient will be expected to be in our office for re-evaluation. Vital Signs Vital signs: Vital Signs - 8 hr 03/01/22 18:30 03/01/22 18:30 03/01/22 18:31 Pulse Rate 109 H Respiratory Rate 15 Blood Pressure 159/102 H 161/103 H Pulse Oximetry Oxygen Delivery Method 03/01/22 18:31 03/01/22 19:00 03/01/22 19:00 Pulse Rate 109 H 100 H Respiratory Rate 15 13 Blood Pressure 130/79 Pulse Oximetry 97 Oxygen Delivery Method Room Air 03/01/22 19:30 03/01/22 19:30 03/01/22 20:00 Pulse Rate 98 H Respiratory Rate 21 Blood Pressure 110/70 161/99 H Pulse Oximetry 98 Oxygen Delivery Method Room Air 03/01/22 20:00 03/01/22 20:30 03/01/22 20:30 Pulse Rate 106 H 104 H Respiratory Rate 19 12 Blood Pressure 153/92 H Pulse Oximetry 99 98 Oxygen Delivery Method Room Air Room Air 03/01/22 21:00 03/01/22 21:00 03/01/22 21:30 Pulse Rate 110 H Respiratory Rate 12 Blood Pressure 166/103 H 137/84 Pulse Oximetry 94 Oxygen Delivery Method Room Air 03/01/22 21:30 03/01/22 22:00 03/01/22 22:00 Pulse Rate 103 H 103 H Respiratory Rate 12 Blood Pressure 129/85 Pulse Oximetry 98 96 Oxygen Delivery Method Room Air Room Air 03/01/22 22:30 03/01/22 22:30 03/01/22 23:00 Pulse Rate 101 H Respiratory Rate 15 Blood Pressure 119/78 84/56 L Pulse Oximetry 97 Oxygen Delivery Method Room Air 03/01/22 23:00 03/01/22 23:04 03/01/22 23:04 Pulse Rate 90 91 H Respiratory Rate 12 Blood Pressure 83/51 L Pulse Oximetry 95 98 Oxygen Delivery Method Room Air Room Air 03/01/22 23:05 03/01/22 23:05 03/01/22 23:13 Pulse Rate 93 H 93 H Respiratory Rate 23 17 Blood Pressure 82/53 L Pulse Oximetry 98 97 Oxygen Delivery Method 03/01/22 23:13 03/02/22 00:32 Pulse Rate 95 H Respiratory Rate 16 Blood Pressure 88/54 L 160/75 H Pulse Oximetry 100 Oxygen Delivery Method Room Air MDM - Headache Differential Diagnosis Differential diagnosis: Likely other (Acute closure glaucoma. Vitreous hemorrha ge. Retinal detachment. Ocular migraine.) Lab Data Result diagrams: 03/01/22 18:36 03/01/22 18:36 Labs: Lab Results 03/01/22 03/01/22 03/01/22 Range/Units 18:36 18:36 18:36 WBC 9.7 (4.5-11.0) X10^3/uL RBC 4.44 (4.0-5.2) X10^6/uL Hgb 13.0 (12.0-16.0) g/dL Hct 38.8 (36-46) % MCV 87.5 (80-100) fL MCH 29.3 (26-34) PG MCHC 33.5 (30-36) % RDW 13.3 (11.6-14.8) % Plt Count 447 H (150-400) X10^3/uL Neut % (Auto) 69.9 (50-75) % Lymph % (Auto) 21.5 L (25-40) % [place] % (Auto) 6.6 (3-14) % Eos % (Auto) 1.1 L (2-4) % Baso % (Auto) 0.9 (0-2) % Neut # (Auto) 6800 (3958-7148) /uL Lymph # (Auto) 2100 (9556-9903) /uL [place] # (Auto) 600 (0-900) /uL Eos # (Auto) 100 (0-450) /uL Baso # (Auto) 100 (0-100) /uL Sodium 136 L (137-145) mmol/L Potassium 4.6 (3.4-5.1) mmol/L Chloride 101 (98-107) mmol/L Carbon Dioxide 25 (22-32) mmol/L BUN 26 H (7-17) mg/dL Creatinine 0.56 (0.52-1.04) mg/dL Estimated GFR > 60 (>60) mL/min BUN/Creatinine Ratio 46.4 H (6-22) Glucose 219 H (70-100) mg/dL Calcium 8.7 (8.4-10.2) mg/dL Total Bilirubin 0.3 (0.2-1.3) mg/dL AST 24 (14-36) IU/L ALT 13 (<35) IU/L Alkaline Phosphatase 126 (38-126) U/L Total Protein 6.7 (6.3-8.2) g/dL Albumin 3.2 L (3.5-5.0) g/dL Globulin 3.5 (1.7-4.1) g/dL Albumin/Globulin Ratio 0.9 L (1.0-2.8) Serum , Qual Negative (Negative) SARS-CoV-2 (PCR) (Negative) 03/01/22 Range/Units 20:17 WBC (4.5-11.0) X10^3/uL RBC (4.0-5.2) X10^6/uL Hgb (12.0-16.0) g/dL Hct (36-46) % MCV (80-100) fL MCH (26-34) PG MCHC (30-36) % RDW (11.6-14.8) % Plt Count (150-400) X10^3/uL Neut % (Auto) (50-75) % Lymph % (Auto) (25-40) % [place] % (Auto) (3-14) % Eos % (Auto) (2-4) % Baso % (Auto) (0-2) % Neut # (Auto) (0541-7241) /uL Lymph # (Auto) (5151-9581) /uL [place] # (Auto) (0-900) /uL Eos # (Auto) (0-450) /uL Baso # (Auto) (0-100) /uL Sodium (137-145) mmol/L Potassium (3.4-5.1) mmol/L Chloride (98-107) mmol/L Carbon Dioxide (22-32) mmol/L BUN (7-17) mg/dL Creatinine (0.52-1.04) mg/dL Estimated GFR (>60) mL/min BUN/Creatinine Ratio (6-22) Glucose (70-100) mg/dL Calcium (8.4-10.2) mg/dL Total Bilirubin (0.2-1.3) mg/dL AST (14-36) IU/L ALT (<35) IU/L Alkaline Phosphatase (38-126) U/L Total Protein (6.3-8.2) g/dL Albumin (3.5-5.0) g/dL Globulin (1.7-4.1) g/dL Albumin/Globulin Ratio (1.0-2.8) Serum , Qual (Negative) SARS-CoV-2 (PCR) Negative (Negative) Point of Care Testing Glucose POC 179 MDM Narrative Medical decision making narrative: I have implored with ophthalmologic services to see patient tonight. I spoke with [facility] services and they have indicated patient does not need to be seen tonight or transferred to their facility. They instructed patient to be followed up with local on-call tape duplicator Dr. Janice tanner. I have spoken with Dr. Tanner numerous times through the course of the evening. I have conveyed that our Oleg-Pen does not work and unable to get eye pressures. I do have concern about vitreous leak/hemorrhage as well as blood in the I/hemorrhage. I have also conveyed this with family and they are understanding. At this time the 3 ophthalmological services I spoke with indicated for follow-up in the office tomorrow morning. Ultrasound services does not do ultrasounds of the orbits/eyes Discharge Plan Departure Patient Disposition: Home Clinical Impression: Acute left eye pain Instructions: DI for Eye Pain Activity Restrictions/Additional Instructions: Please go to Dr. Tanner office this morning at 8:00 a.m.. She is expecting you in the ophthalmology office. Be sure to let the office know she is expecting you because of your ER visit here tonight. No driving or operating machinery. Please continue the timolol as well as a brimonidine as well as a dorzolamide eye drops as instructed on the labels. These have been sent home with you. Return if worse or for any questions or concerns Prescriptions: No Action glucose 4 gram tablet,chewable 4 gram PO Q15M PRN (Reason: hypoglycemia) Qty: 30 0RF Rx Instructions: until response Glucagon Emergency Kit (human) 1 mg recon soln 1 mg subcut DIRECTED ondansetron 4 mg tablet,disintegrating 4 mg PO Q8H PRN (Reason: nausea and vomiting) Qty: 10 0RF hydrocodone-acetaminophen 5-325 mg tablet 1 tab PO BEDTIME PRN (Reason: pain) Qty: 10 0RF hydrocodone-acetaminophen 5-325 mg tablet 1 tab PO Q6H PRN (Reason: pain) Qty: 10 0RF diphenhydramine HCl 50 mg Capsule 50 mg PO BEDTIME PRN (Reason: Sleep) Rx Instructions: for itching and sleep insulin aspart U-100 [Novolog Flexpen U-100 Insulin] 100 unit/mL (3 mL) insulin pen See Rx Instructions .ROUTE .COMPLEX Label Comments: Inject 7-20 Units under the skin 3 (three) times a day with meals SLIDING scale Rx Instructions: 7-10 units at meals using sliding scale pantoprazole 40 mg tablet,delayed release (DR/EC) 40 mg PO BEDTIME Label Comments: TAKE ONE TABLET BY MOUTH ONE TIME DAILY Tresiba FlexTouch U-200 200 unit/mL (3 mL) insulin pen 13 ea SUBCUT BID methocarbamol 500 mg tablet 1 tab PO TID Label Comments: TAKE ONE TO TWO TABLETS BY MOUTH THREE TIMES DAILY NEEDED FOR MUSCLE SPASMS sennosides [senna] 8.6 mg Tablet 8.6 mg PO DAILY acetaminophen 325 mg Tablet 975 mg PO Q8H Qty: 30 0RF tramadol 50 mg Tablet 50 mg PO Q4H PRN (Reason: Pain, Moderate (4-6)) Qty: 15 0RF hydromorphone 2 mg Tablet 2 mg PO Q4HR PRN (Reason: Pain, Moderate (4-6)) Qty: 10 0RF naloxone [Narcan] 4 mg/actuation spray,non-aerosol 1 spray intranasal Q2M Qty: 2 0RF Rx Instructions: spray 1 dose into ONE nostril; alternate nostrils w each dose until help arrives Referrals: Janice Tanner MD [Physician] - Maria Ines Limon DO [Primary Care Provider] - Visit Report Forms: Patient Portal/API
[2022-03-01] MEDS: ONDANSETRON 4 MG/2 ML INJ IV (18:44)
[2022-03-01] MEDS: HYDROMORPHONE 1 MG INJ IV ×2 (18:45→22:43)
[2022-03-01] MEDS: PROPARACAINE 0.5% OPHTH SOL 1 DROPS EYE-LEFT (18:45)
[2022-03-01 19:01] LABS: Add Manual Diff / Slide Review NO; Basophils Absolute Auto 100 /uL (0-100); Basophils Percent Auto 0.9 % (0-2); Eosinophils Absolute Auto 100 /uL (0-450); Eosinophils Percent Auto 1.1 % (2-4); Hematocrit 38.8 % (36-46); Lymphocytes Absolute Auto 2100 /uL (1100-4500); Lymphocytes Percent Auto 21.5 % (25-40); Mean Corpuscular HGB Conc 33.5 % (30-36); Mean Corpuscular Hemoglobin 29.3 PG (26-34); Mean Corpuscular Volume 87.5 fL (80-100); Monocytes Absolute Auto 600 /uL (0-900); Monocytes Percent Auto 6.6 % (3-14); Neutrophils Absolute Auto 6800 /uL (1500-7000); Neutrophils Percent Auto 69.9 % (50-75); Platelet Count 447 X10^3/uL (150-400); Red Blood Cell Count 4.44 X10^6/uL (4.0-5.2); Red Cell Distribution Width 13.3 % (11.6-14.8); White Blood Cell Count 9.7 X10^3/uL (4.5-11.0)
[2022-03-01 19:18] LABS: Alanine Aminotransferase 13 IU/L (<35); Albumin 3.2 g/dL (3.5-5.0); Albumin Globulin Ratio 0.9 (1.0-2.8); Alkaline Phosphatase 126 U/L (38-126); Aspartate Aminotransferase 24 IU/L (14-36); BUN Creatinine Ratio 46.4 (6-22); Bilirubin Total 0.3 mg/dL (0.2-1.3); Blood Urea Nitrogen 26 mg/dL (7-17); Calcium 8.7 mg/dL (8.4-10.2); Carbon Dioxide 25 mmol/L (22-32); Chloride 101 mmol/L (98-107); Estimated Glomerular Filt Rate > 60 mL/min (>60); Globulin 3.5 g/dL (1.7-4.1); Glucose 219 mg/dL (70-100); HEMOLYSIS 27 (0-50); Potassium 4.6 mmol/L (3.4-5.1); Pregnancy Test Serum,Qual Negative (Negative); Sodium 136 mmol/L (137-145); Total Protein 6.7 g/dL (6.3-8.2)
[2022-03-01 21:02] LABS: COVID19 -Nasal RAPID Negative (Negative)
[2022-03-01] MEDS: SODIUM CHLORIDE 0.9% 1,000 ML 1000 ML IV (23:40)
[2022-03-01] MEDS: DORZOLAMIDE 2% OPHTH 10 ML 1 DROPS EYE-LEFT (23:42)
[2022-03-02] MEDS: DORZOLAMIDE 2% OPHTH 10 ML 1 DROPS EYE-LEFT ×2 (00:14→00:15)
[2022-03-02] MEDS: BRIMONIDINE 0.2% OPHTH 5 ML 1 DROPS EYE-LEFT (00:20)
[2022-03-02] MEDS: TIMOLOL 0.5% OPHTH 1 DROPS EYE-LEFT (00:25)
[2022-03-02 00:32] VITALS: BP 160/75; PULSE 95; RESP 16; O2SAT 100
== END 2022-03-02 00:34 | disposition home or self-care (01) ==
PROVIDERS: Emergency Provider Emergency Medicine; PCP Student in an Organized Health Care Education/Training Program
DX: H57.12 Ocular pain, left eye (principal); R51.9 Headache, unspecified; R11.0 Nausea; Z20.822 Contact with and (suspected) exposure to COVID-19
CPT/HCPCS: 36415; 70450; 80053; 82962; 84703; 85025; 87635; 96374; 96375; 96376; 99284; C9803; J1170; J2405

== ENCOUNTER 2022-03-18 06:57 | Emergency (ER) | payer OTHER, MEDICAID, SELFPAY ==
[2021-11-13 14:44] VITALS: BMI 18.8
[2022-03-18 07:09] VITALS: BP 108/69; PULSE 111; RESP 18; TEMP 36.2; O2SAT 98
--- NOTE | 2022-03-18 07:49 | ED_ITS ---
HPI - Skin/Abscess/Foreign Bdy General Chief complaint: Skin/Abscess/Foreign Body Stated complaint: lt. side amish cyst Time Seen by Provider: 03/18/22 07:17 Source: patient Mode of arrival: Wheelchair History of Present Illness HPI narrative: Patient here with mother. Complains left scalp lesions that are painful. It does not cross midline. Ongoing for 1 week. History of shingles on her back in the past and states is similar. Left eye lid swelling started yesterday. Patient has been evaluated by ophthalmology in this month for bilateral glaucoma. She has no vision in her left eye. She has follow-up appointment tomorrow with her it support engineer. Denies does not want a test. Has no allergies hydrocodone or antibiotics. No changes in her left eye vision. Denies any eye pain. Related Data Home Medications Medication Instructions Recorded Confirmed glucagon (human recombinant) 1 mg 1 mg SUBCUT DIRECTED 02/16/19 11/29/21 solution for injection (Glucagon Emergency Kit) diphenhydramine HCl 50 mg capsule 50 mg PO BEDTIME PRN Sleep 09/29/20 11/29/21 insulin aspart U-100 100 unit/mL See Rx Instructions .Route .COMPLEX 11/13/21 11/29/21 (3 mL) subcutaneous pen (Novolog Flexpen U-100 Insulin aspart) insulin degludec 200 unit/mL (3 13 ea SUBCUT BID 11/13/21 11/29/21 mL) subcutaneous pen (Tresiba FlexTouch U-200 insulin) methocarbamol 500 mg tablet 1 tab PO TID 11/13/21 11/29/21 pantoprazole 40 mg tablet,delayed 40 mg PO BEDTIME 11/13/21 11/29/21 release sennosides 8.6 mg tablet (senna) 8.6 mg PO DAILY 11/13/21 11/29/21 Previous Rx's Medication Instructions Recorded glucose 4 gram chewable tablet 4 gram PO Q15M PRN hypoglycemia 12/12/18 #30 tabs ondansetron 4 mg disintegrating 4 mg PO Q8H PRN nausea and 11/08/21 tablet vomiting #10 tabs acetaminophen 325 mg tablet 975 mg PO Q8H #30 tabs 11/18/21 hydromorphone 2 mg tablet 2 mg PO Q4HR PRN Pain, Moderate 11/18/21 (4-6) #10 tabs naloxone 4 mg/actuation nasal 1 spray intranasal Q2M #2 ea 11/18/21 spray (Narcan) tramadol 50 mg tablet 50 mg PO Q4H PRN Pain, Moderate 11/18/21 (4-6) #15 tabs hydrocodone 5 mg-acetaminophen 325 1 tab PO BEDTIME PRN pain #10 tabs 12/13/21 mg tablet hydrocodone 5 mg-acetaminophen 325 1 tab PO Q6H PRN pain #10 tabs 01/02/22 mg tablet doxycycline monohydrate 100 mg 100 mg PO BID #20 caps 03/18/22 capsule hydrocodone 5 mg-acetaminophen 325 1 tab PO Q6H PRN pain #20 tabs 03/18/22 mg tablet ondansetron 4 mg disintegrating 4 mg PO Q8H PRN nausea and 03/18/22 tablet vomiting #15 tabs valacyclovir 1 gram tablet 1,000 mg PO TID #30 tabs 03/18/22 (Valtrex) Allergies Allergy/AdvReac Type Severity Reaction Status Date / Time arredondo [ARREDONDO] Allergy Intermediate Hives, Verified 01/10/22 09:24 pruritus iodine [IODINE] Allergy Intermediate rash, itchy Verified 01/10/22 09:24 morphine Allergy Intermediate Difficulty Verified 01/10/22 09:24 Breathing shellfish derived Allergy Intermediate rash Verified 01/10/22 09:24 [SHELLFISH DERIVED] adhesive [ADHESIVE] Allergy Unknown tape Verified 01/10/22 09:24 latex [LATEX] Allergy Unknown Hives Verified 01/10/22 09:24 Review of Systems Review of Systems Narrative: GENERAL: negative chills, fatigue, malaise, fever, sweats. HEENT: negative sinus pain, ear pain, sore throat, negative I pain RESPIRATORY: negative dyspnea, cough CARDIOVASCULAR: negative chest pain, palpitations GASTROINTESTINAL: negative nausea, vomiting, abdominal pain : negative dysuria, frequency, hematuria MUSCULOSKELETAL: negative muscle or bony pain SKIN: Positive rash, skin lesions NEUROLOGIC: negative weakness, numbness ROS Unobtainable: All systems reviewed & are unremarkable except as noted in HPI and below Patient History Medical History DKA (diabetic ketoacidoses) History of pyelonephritis Irregular menstrual cycle Migraine headache Nephrolithiasis Noncompliance w/medication treatment due to intermit use of medication Type 1 diabetes mellitus Surgical History History of ureter stent Hx of cataract surgery Hx of local excision of skin lesion Status post cholecystectomy Status post laser lithotripsy of ureteral calculus Cygnet teeth extracted Family History Father In good health Mother Cardiac disease Social History details: Engaged household members: significant other Smoking Status: Never smoker alcohol intake: never Smoking Status: Never smoker alcohol intake frequency: holidays/special occasions only Substance Use Type: does not use Exam Narrative Exam Narrative: GENERAL: in no distress, not toxic not dyspneic HEAD: Normocephalic. There are multiple scabbed lesions on the left temporal and left parietal scalp. It does not cross midline. No vesicles. They are tender to touch. No fluctuance on these lesions. No drainage. EYES: Pupils equal round No scleral icterus. There is left upper and lower eyelid edema erythema. EOMI. No pain with eye movement. No vesicles or lesions around the eyelid, ENT: Mucous membranes moist. No lesions on the nose or cheek or jaw NECK: Trachea midline. NEURO: AOx4. SKIN: Warm and dry PSYCH: Not anxious, is cooperative Initial Vital Signs Initial Vital Signs: Vital Signs Temperature 97.1 F L 03/18/22 07:09 Pulse Rate 111 H 03/18/22 07:09 Respiratory Rate 18 03/18/22 07:09 Blood Pressure 108/69 03/18/22 07:09 Pulse Oximetry 98 03/18/22 07:09 Oxygen Delivery Method 03/18/22 07:09 Course Course Course Narrative: No new issues during course of stay Orders Ordered: Discontinued Medications Hydrocodone Bitart/Acetaminophen (Hydrocodone/Acet 5/325 Tablet) 2 tab PO NOW ONE Stop: 03/18/22 07:49 Last Admin: 03/18/22 07:58 Dose: 2 tab Documented By: MARY Doxycycline Hyclate (Doxycycline Hyclate 100 Mg Tablet) 100 mg PO NOW ONE Stop: 03/18/22 07:49 Last Admin: 03/18/22 07:58 Dose: 100 mg Documented By: MARY Ondansetron HCl (Ondansetron 4 Mg Odt) 4 mg SL NOW ONE Stop: 03/18/22 07:49 Last Admin: 03/18/22 07:58 Dose: 4 mg Documented By: MARY Valacyclovir HCl (Valacyclovir 500 Mg Tablet) 1,000 mg PO NOW ONE Stop: 03/18/22 07:49 Last Admin: 03/18/22 08:01 Dose: 1,000 mg Documented By: MARY Reevaluation(s) Reevaluation #1: Reviewed with patient and mother. Shingles is contagious, must stay away from women. Or persons with chemotherapy or immunocompromise. Patient does have appointment with her it support engineer tomorrow., informed patient and mother to be sure to inform her it support engineer she is being treated for facial shingles. Vital Signs Vital signs: Vital Signs - 8 hr 03/18/22 07:09 Temperature 97.1 F L Pulse Rate 111 H Respiratory Rate 18 Blood Pressure 108/69 Pulse Oximetry 98 Oxygen Delivery Method Room Air MDM - Skin/Abscess/Foreign Bdy Differential Diagnosis Differential diagnosis: Likely abscess of skin or subcutaneous tissue, herpes zoster and cellulitis MDM Narrative Medical decision making narrative: Appropriate for discharge home. Patient likely having concomitant bacterial cellulitis infection along with shingles. Doxycycline valacyclovir has been started. No steroids at this time. Ongoing for 1 week. Patient does have diabetes and will likely increase her glucose levels, steroids at this time likely not effective with this late finding. Patient does have appropriate follow up tomorrow with Ophthalmology. No slit-lamp or Wood's lamp indicated at this time. 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 Return precautions reviewed with patient and mother. Valacyclovir and doxycycline and pain medication has been started. They desire discharge home Discharge Plan Departure Patient Disposition: Home Clinical Impression: Shingles, Cellulitis Instructions: DI for Cellulitis -- Adult, DI for Shingles Activity Restrictions/Additional Instructions: Please see your it support engineer tomorrow morning as scheduled. Please do inform them you are being treated for shingles on the left face and scalp. No driving operating machinery today or when taking prescribed medication. Prescription for antibiotic as well as antiviral medication has been sent to your pharmacy. Be sure to continue and complete them. Return if worse if any questions or con cerns Prescriptions: New hydrocodone-acetaminophen 5-325 mg tablet 1 tab PO Q6H PRN (Reason: pain) Qty: 20 0RF ondansetron 4 mg tablet,disintegrating 4 mg PO Q8H PRN (Reason: nausea and vomiting) Qty: 15 0RF valacyclovir [Valtrex] 1 gram tablet 1,000 mg PO TID Qty: 30 0RF doxycycline monohydrate 100 mg capsule 100 mg PO BID Qty: 20 0RF No Action glucose 4 gram tablet,chewable 4 gram PO Q15M PRN (Reason: hypoglycemia) Qty: 30 0RF Rx Instructions: until response Glucagon Emergency Kit (human) 1 mg recon soln 1 mg subcut DIRECTED ondansetron 4 mg tablet,disintegrating 4 mg PO Q8H PRN (Reason: nausea and vomiting) Qty: 10 0RF hydrocodone-acetaminophen 5-325 mg tablet 1 tab PO BEDTIME PRN (Reason: pain) Qty: 10 0RF hydrocodone-acetaminophen 5-325 mg tablet 1 tab PO Q6H PRN (Reason: pain) Qty: 10 0RF diphenhydramine HCl 50 mg Capsule 50 mg PO BEDTIME PRN (Reason: Sleep) Rx Instructions: for itching and sleep insulin aspart U-100 [Novolog Flexpen U-100 Insulin] 100 unit/mL (3 mL) insulin pen See Rx Instructions .ROUTE .COMPLEX Label Comments: Inject 7-20 Units under the skin 3 (three) times a day with meals SLIDING scale Rx Instructions: 7-10 units at meals using sliding scale pantoprazole 40 mg tablet,delayed release (DR/EC) 40 mg PO BEDTIME Label Comments: TAKE ONE TABLET BY MOUTH ONE TIME DAILY Tresiba FlexTouch U-200 200 unit/mL (3 mL) insulin pen 13 ea SUBCUT BID methocarbamol 500 mg tablet 1 tab PO TID Label Comments: TAKE ONE TO TWO TABLETS BY MOUTH THREE TIMES DAILY NEEDED FOR MUSCLE SPASMS sennosides [senna] 8.6 mg Tablet 8.6 mg PO DAILY acetaminophen 325 mg Tablet 975 mg PO Q8H Qty: 30 0RF tramadol 50 mg Tablet 50 mg PO Q4H PRN (Reason: Pain, Moderate (4-6)) Qty: 15 0RF hydromorphone 2 mg Tablet 2 mg PO Q4HR PRN (Reason: Pain, Moderate (4-6)) Qty: 10 0RF naloxone [Narcan] 4 mg/actuation spray,non-aerosol 1 spray intranasal Q2M Qty: 2 0RF Rx Instructions: spray 1 dose into ONE nostril; alternate nostrils w each dose until help a rrives Referrals: Maria Ines Limon DO [Primary Care Provider] - Visit Report Forms: Patient Portal/API
[2022-03-18] MEDS: ONDANSETRON 4 MG ODT SL (07:58)
[2022-03-18] MEDS: HYDROCODONE/ACET 5/325 TABLET 2 TAB PO (07:58)
[2022-03-18] MEDS: DOXYCYCLINE HYCLATE 100 MG TABLET PO (07:58)
[2022-03-18] MEDS: valACYclovir 500 MG TABLET 1000 MG PO (08:01)
[2022-03-18 08:07] VITALS: BP 142/87; PULSE 108; O2SAT 99
== END 2022-03-18 08:08 | disposition home or self-care (01) ==
PROVIDERS: Emergency Provider Emergency Medicine; PCP Student in an Organized Health Care Education/Training Program
DX: B02.9 Zoster without complications (principal); L03.811 Cellulitis of head [any part, except face]
CPT/HCPCS: 99283

== ENCOUNTER 2022-06-17 00:32 | Inpatient (IN) | payer MEDICAID, OTHER, SELFPAY ==
[2021-11-13 14:44] VITALS: BMI 18.8
[2022-06-17] VITALS (64 sets, daily range): BP systolic 119–184; BP diastolic 67–114; PULSE 90–107; RESP 12–36; TEMP 36.3–37.1; O2SAT 81–98; BMI 21.3
--- NOTE | 2022-06-17 00:45 | ED.GENADULT ---
HPI - General Adult General Chief complaint: Weakness Stated complaint: general malaise & ear pain Time Seen by Provider: 06/17/22 00:35 History of Present Illness HPI narrative: 32-year-old female nonsmoker with history of type 1 diabetes and frequent hospitalizations for the same presents by EMS for evaluation of generalized malaise and feeling unwell for the past few days at least. Her primary complaint seems to of been left ear pain. She complains of being dizzy, weak and lightheaded. She is had some cough but denies production of any sputum. She has back pain and abdominal pain. She denies any new medications or change in her typical regimen. EMS reports low oxygen with a good [place] in the mid to upper 80s, which improves with 3 L by nasal cannula Related Data Home Medications Medication Instructions Recorded Confirmed glucagon (human recombinant) 1 mg 1 mg SUBCUT DIRECTED 02/16/19 06/17/22 solution for injection (Glucagon Emergency Kit) diphenhydramine HCl 50 mg capsule 50 mg PO BEDTIME PRN Sleep 09/29/20 06/17/22 insulin aspart U-100 100 unit/mL See Rx Instructions .Route .COMPLEX 11/13/21 11/29/21 (3 mL) subcutaneous pen (Novolog FlexPen U-100 Insulin aspart) insulin degludec 200 unit/mL (3 13 ea SUBCUT BID 11/13/21 11/29/21 mL) subcutaneous pen (Tresiba FlexTouch U-200 insulin) methocarbamol 500 mg tablet 1 tab PO TID 11/13/21 06/17/22 pantoprazole 40 mg tablet,delayed 40 mg PO BEDTIME 11/13/21 06/17/22 release sennosides 8.6 mg tablet (senna) 8.6 mg PO DAILY 11/13/21 06/17/22 Previous Rx's Medication Instructions Recorded glucose 4 gram chewable tablet 4 gram PO Q15M PRN hypoglycemia 12/12/18 #30 tabs ondansetron 4 mg disintegrating 4 mg PO Q8H PRN nausea and 11/08/21 tablet vomiting #10 tabs acetaminophen 325 mg tablet 975 mg PO Q8H #30 tabs 11/18/21 naloxone 4 mg/actuation nasal 1 spray intranasal Q2M #2 ea 11/18/21 spray (Narcan) tramadol 50 mg tablet 50 mg PO Q4H PRN Pain, Moderate 11/18/21 (4-6) #15 tabs ondansetron 4 mg disintegrating 4 mg PO Q8H PRN nausea and 03/18/22 tablet vomiting #15 tabs valacyclovir 1 gram tablet 1,000 mg PO TID #30 tabs 03/18/22 (Valtrex) Allergies Allergy/AdvReac Type Severity Reaction Status Date / Time abdalla [ABDALLA] Allergy Intermediate Hives, Verified 01/10/22 09:24 pruritus iodine [IODINE] Allergy Intermediate rash, itchy Verified 01/10/22 09:24 morphine Allergy Intermediate Difficulty Verified 01/10/22 09:24 Breathing shellfish derived Allergy Intermediate rash Verified 01/10/22 09:24 [SHELLFISH DERIVED] adhesive [ADHESIVE] Allergy Unknown tape Verified 01/10/22 09:24 latex [LATEX] Allergy Unknown Hives Verified 01/10/22 09:24 Review of Systems Review of Systems Narrative: GENERAL: See HPI HEENT: See HPI RESPIRATORY: See HPI CARDIOVASCULAR: Denies chest pain, palpitations, orthopnea, edema, GASTROINTESTINAL: See HPI : Denies dysuria, frequency, incontinence, hematuria, urinary retention. MUSCULOSKELETAL: See HPI SKIN: Denies rash, skin lesions, or other NEUROLOGIC: Denies weakness, headache, numbness, change in speech, confusion, seizures, incoordination. PSYCHIATRIC: No concerning psychosocial issues. 12 point review of systems is negative except for those stated above Patient History Medical History DKA (diabetic ketoacidoses) History of pyelonephritis Irregular menstrual cycle Migraine headache Nephrolithiasis Noncompliance w/medication treatment due to intermit use of medication Type 1 diabetes mellitus Surgical History History of ureter stent Hx of cataract surgery Hx of local excision of skin lesion Status post cholecystectomy Status post laser lithotripsy of ureteral calculus [place] teeth extracted Family History Father In good health Mother Cardiac disease Social History details: Engaged household members: significant other Smoking Status: Never smoker alcohol intake: never Smoking Status: Never smoker alcohol intake frequency: holidays/special occasions only Substance Use Type: does not use Exam Narrative Exam Narrative: GENERAL: [32] year old patient appears stated age. Well-developed patient, evidence of chronic illness, pale HEAD: Atraumatic. Normocephalic. EYES: Pupils equal round and reactive. Extraocular motions intact. No scleral icterus. No injection or drainage. ENT: Nose without bleeding, purulent drainage. Throat without erythema, tonsillar hypertrophy or exudate. Airway patent. Left TM slightly bulging and erythematous NECK: Trachea midline. Non tender CARDIOVASCULAR: Regular rate and rhythm without murmurs, gallops, or rubs. RESPIRATORY: Clear to auscultation. Breath sounds equal bilaterally. No wheezes, rales, or rhonchi. GASTROINTESTINAL: Abdomen soft, non-tender, nondistended. EXTREMITIES: No edema or joint tenderness. BACK: Nontender without deformity or crepitance. No flank tenderness. NEURO: AOx3. SKIN: No rash or erythema of visible areas Initial Vital Signs Initial Vital Signs: Vital Signs Pulse Rate 97 H 06/17/22 00:36 Blood Pressure 145/86 H 06/17/22 00:36 Pulse Oximetry 94 06/17/22 00:36 Oxygen Delivery Method 06/17/22 00:36 Oxygen Flow Rate 3 06/17/22 00:36 Course Orders Ordered: ED Orders 06/18/22 06:15 Complete Blood Count AUTO DIFF DAILY Comprehensive Metabolic Panel DAILY 06/19/22 06:15 Complete Blood Count AUTO DIFF DAILY Comprehensive Metabolic Panel DAILY 06/20/22 06:15 Complete Blood Count AUTO DIFF DAILY Comprehensive Metabolic Panel DAILY Acetaminophen (Acetaminophen 325 Mg Tablet) 650 mg PO Q6H PRN PRN Reason: Fever/Mild Pain (1-3) Acetaminophen (Acetaminophen 325 Mg Tablet) 975 mg PO Q8H [facility] Last Admin: 06/17/22 22:09 Dose: 975 mg Documented By: ЕЛЕНА Admin: 06/17/22 14:14 Dose: 975 mg Documented By: DIANE Atropine Sulfate (Atropine 1% Ophth) 1 drops EYE-LEFT BEDTIME [facility] Last Admin: 06/17/22 21:01 Dose: 1 drops Documented By: ЕЛЕНА Dextrose (Dextrose 50 % In Water 25 Gm/50 Ml Syringe) 25 gm IV PRN PRN PRN Reason: Hypoglycemia Diphenhydramine HCl (Diphenhydramine 25 Mg Tablet) 50 mg PO BEDTIME PRN PRN Reason: Sleep Furosemide (Furosemide 40 Mg/4 Ml Vial) 20 mg IV DAILY [facility] Last Admin: 06/17/22 08:51 Dose: 20 mg Documented By: AVA Ceftriaxone Sodium 1,000 mg/ (Sodium Chloride) 100 mls @ 200 mls/hr IV Q24H [facility] Stop: 06/22/22 06:14 Last Infusion: 06/17/22 07:40 Dose: 0 mls/hr Documented By: Admin: 06/17/22 06:50 Dose: 200 mls/hr Documented By: RAYMOND Azithromycin 500 mg/ Dextrose 250 mls @ 250 mls/hr IV Q24H [facility] Stop: 06/20/22 06:14 Last Admin: 06/17/22 06:39 Dose: Not Given Documented By: RAYMOND Insulin Glargine (Insulin Glargine 100 Unit/Ml 3ml Pen) 20 unit SUBCUT DAILY [facility] Last Admin: 06/17/22 08:39 Dose: 20 unit Documented By: AVA Co-signed By: MYRNA Insulin Glargine (Insulin Glargine 100 Unit/Ml 3ml Pen) 10 unit SUBCUT BEDTIME [facility] Last Admin: 06/17/22 21:02 Dose: 10 unit Documented By: ЕЛЕНА Co-signed By: WOJCIECH Insulin Human Lispro (Insulin Lispro 100 Unit/Ml 3ml Vial) 0 unit SUBCUT ACHS [facility]; Protocol Last Admin: 06/17/22 20:44 Dose: 7 unit Documented By: ЕЛЕНА Co-signed By: WOJCIECH Admin: 06/17/22 16:56 Dose: 7 unit Documented By: DIANE Co-signed By: SAMI Admin: 06/17/22 12:09 Dose: 8 unit Documented By: DIANE Co-signed By: SAMI Admin: 06/17/22 07:57 Dose: 8 unit Documented By: AVA Co-signed By: CONSTANCE Latanoprost (Latanoprost 0.005% Ophth 2.5 Ml) 1 drops EYE-BOTH BEDTIME [facility] Last Admin: 06/17/22 21:06 Dose: 1 drops Documented By: ЕЛЕНА Methocarbamol (Methocarbamol 500 Mg Tablet) 500 mg PO TID PRN PRN Reason: Muscle Spasm Last Admin: 06/17/22 10:05 Dose: 500 mg Documented By: AVA Naloxone HCl (Naloxone 0.4 Mg/Ml Vial) 0.2 mg IV Q2MIN PRN PRN Reason: Opiate Reversal Nf - Simbrinza 1 (Drop) 1 drop EYE-BOTH BID [facility] Last Admin: 06/17/22 21:02 Dose: 1 drop Documented By: ЕЛЕНА Ondansetron HCl (Ondansetron 4 Mg/2 Ml Inj) 4 mg IV Q4HR PRN PRN Reason: Nausea And Vomiting Ondansetron HCl (Ondansetron 4 Mg Odt) 4 mg PO Q8H PRN PRN Reason: nausea and vomiting Pantoprazole Sodium (Pantoprazole Dr 40 Mg Tablet) 40 mg PO BEDTIME [facility] Last Admin: 06/17/22 21:01 Dose: 40 mg Documented By: ЕЛЕНА Sennosides (Sennosides 8.6 Mg Tablet) 8.6 mg PO DAILY [facility] Last Admin: 06/17/22 15:22 Dose: 8.6 mg Documented By: DIANE Sodium Chloride (Sodium Chloride 0.9% Flush) 10 ml IV PRN PRN PRN Reason: Flush Timolol Maleate (Timolol 0.5% Ophth) 1 drops EYE-BOTH BID [facility] Last Admin: 06/17/22 21:06 Dose: 1 1000units Documented By: ЕЛЕНА Tramadol HCl (Tramadol 50 Mg Tablet) 50 mg PO Q4H PRN PRN Reason: Pain, Moderate (4-6) Last Admin: 06/17/22 13:16 Dose: 50 mg Documented By: Admin: 06/17/22 08:15 Dose: 50 mg Documented By: RLS Discontinued Medications Albuterol/Ipratropium (Albuterol/Ipratropium 3 Ml Ampul) 3 ml INH [id number] [facility] Last Admin: 06/17/22 07:41 Dose: Not Given Documented By: SHIRLEY Atropine Sulfate (Atropine 1% Ophth) 1 drops EYE-LEFT QPM [facility] Diphenhydramine HCl (Diphenhydramine 50 Mg/Ml Vial) 25 mg IV NOW ONE Stop: 06/17/22 01:32 Last Admin: 06/17/22 01:41 Dose: 25 mg Documented By: RAYMOND Famotidine (Famotidine 20 Mg/2 Ml Vial) 20 mg IV NOW [facility] Last Admin: 06/17/22 01:42 Dose: 20 mg Documented By: RAYMOND Furosemide (Furosemide 40 Mg/4 Ml Vial) 40 mg IV NOW ONE Stop: 06/17/22 03:06 Last Admin: 06/17/22 04:17 Dose: 40 mg Documented By: RAYMOND Furosemide (Furosemide 40 Mg/4 Ml Vial) 40 mg IV NOW ONE Stop: 06/17/22 13:53 Last Admin: 06/17/22 14:14 Dose: 40 mg Documented By: DIANE Hydromorphone HCl (Hydromorphone 0.5 Mg Inj) 0.5 mg IV NOW ONE Stop: 06/17/22 04:24 Last Admin: 06/17/22 05:00 Dose: 0.5 mg Documented By: RAYMOND Sodium Chloride (Normal Saline 0.9%) 1,000 mls @ 1,000 mls/hr IV BOLUS ONE Stop: 06/17/22 01:22 Last Infusion: 06/17/22 02:00 Dose: 0 mls/hr Documented By: Admin: 06/17/22 01:00 Dose: 1,000 mls/hr Documented By: RAYMOND Ceftriaxone Sodium 1,000 mg/ (Sodium Chloride) 100 mls @ 200 mls/hr IV NOW ONE Stop: 06/17/22 03:17 Last Infusion: 06/17/22 05:02 Dose: 0 mls/hr Documented By: Admin: 06/17/22 04:17 Dose: 200 mls/hr Documented By: RAYMOND Azithromycin 500 mg/ Dextrose 250 mls @ 250 mls/hr IV NOW ONE Stop: 06/17/22 04:24 Last Infusion: 06/17/22 06:10 Dose: 0 mls/hr Documented By: Admin: 06/17/22 05:00 Dose: 250 mls/hr Documented By: RAYMOND Methylprednisolone (Methylprednisolone 125 Mg/2 Ml Vial) 125 mg IV NOW ONE Stop: 06/17/22 01:32 Last Admin: 06/17/22 01:38 Dose: 125 mg Documented By: RAYMOND Ondansetron HCl (Ondansetron 4 Mg/2 Ml Inj) 4 mg IV NOW ONE Stop: 06/17/22 04:00 Last Admin: 06/17/22 04:04 Dose: 4 mg Documented By: JAVIER Prednisone (Prednisone 20 Mg Tablet) 40 mg PO DAILY [facility] Stop: 06/21/22 08:59 Last Admin: 06/17/22 08:38 Dose: 40 mg Documented By: AVA Vital Signs Vital signs: Vital Signs - 8 hr 06/17/22 00:43 Temperature 97.6 F Pulse Rate 95 H Respiratory Rate 18 Blood Pressure 145/86 H Pulse Oximetry 98 Oxygen Delivery Method Nasal Cannula Oxygen Flow Rate 2 Medical Decision Making Lab Data 06/17/22 00:40 06/17/22 00:40 Labs: Lab Results 06/17/22 06/17/22 06/17/22 Range/Units 00:38 00:40 00:40 WBC 19.4 H (4.5-11.0) X10^3/uL RBC 3.65 L (4.0-5.2) X10^6/uL Hgb 9.9 L (12.0-16.0) g/dL Hct 31.3 L (36-46) % MCV 85.7 (80-100) fL MCH 27.1 (26-34) PG MCHC 31.6 (30-36) % RDW 13.7 (11.6-14.8) % Plt Count 635 H (150-400) X10^3/uL Neut % (Auto) Not Reportable Lymph % (Auto) Not Reportable Sunflower % (Auto) Not Reportable Eos % (Auto) Not Reportable Baso % (Auto) Not Reportable Lymph # (Auto) Not Reportable Sunflower # (Auto) Not Reportable Baso # (Auto) Not Reportable Total Counted 100 Seg Neutrophils % 85.0 H (38-70) % Band Neutrophils % 5.0 (3-7) % Lymphocytes % (Manual) 2.0 L (25-45) % Monocytes % (Manual) 6.0 (2-11) % Eosinophils % (Manual) 2.0 (2-4) % Neutrophils # (Manual) 73644 H (3357-5642) /uL RBC Morphology Normal morphology D-Dimer (<500) ng/ml VBG pH 7.32 L (7.33-7.43) VBG pCO2 56.5 H (45-50) mmHg VBG pO2 30 L (35-45) mmHg VBG HCO3 29 H (24-28) mmol/L VBG Total CO2 31 H (24-29) mmol/L VBG O2 Saturation 50 L (70-75) % VBG Base Excess 3.0 (0-4) mmol/L FiO2 21 Sodium (137-145) mmol/L Potassium (3.4-5.1) mmol/L Chloride (98-107) mmol/L Carbon Dioxide (22-32) mmol/L BUN (7-17) mg/dL Creatinine (0.52-1.04) mg/dL Estimated GFR (>60) mL/min BUN/Creatinine Ratio (6-22) Glucose (70-100) mg/dL Lactate (0.7-2.1) mmol/L Calcium (8.4-10.2) mg/dL Magnesium (1.6-2.3) mg/dL Total Bilirubin (0.2-1.3) mg/dL GGT (12-43) U/L AST (14-36) IU/L ALT (<35) IU/L Alkaline Phosphatase (38-126) U/L Total Creatine Kinase (30-135) U/L CK-MB (CK-2) CK-MB (CK-2) Rel Index Troponin I (0.01-0.034) ng/mL NT-Pro-B Natriuret Pep (<125) pg/mL Total Protein (6.3-8.2) g/dL Albumin (3.5-5.0) g/dL Globulin (1.7-4.1) g/dL Albumin/Globulin Ratio (1.0-2.8) Lipase (23-300) U/L Procalcitonin (<0.5) ng/mL Urine RBC (0-5/HPF) Urine WBC (0-5/HPF) Urine Bacteria (None) Micro UA Comment Ketones 0.14 (<0.27) mmol/L SARS-CoV-2 (PCR) (Negative) Influenza A (RT-PCR) (NEGATIVE) Influenza B (RT-PCR) (NEGATIVE) RSV (PCR) (Negative) Blood Type Antibody Screen 06/17/22 06/17/22 06/17/22 Range/Units 00:40 00:40 00:40 WBC (4.5-11.0) X10^3/uL RBC (4.0-5.2) X10^6/uL Hgb (12.0-16.0) g/dL Hct (36-46) % MCV (80-100) fL MCH (26-34) PG MCHC (30-36) % RDW (11.6-14.8) % Plt Count (150-400) X10^3/uL Neut % (Auto) Lymph % (Auto) Sunflower % (Auto) Eos % (Auto) Baso % (Auto) Lymph # (Auto) Sunflower # (Auto) Baso # (Auto) Total Counted Seg Neutrophils % (38-70) % Band Neutrophils % (3-7) % Lymphocytes % (Manual) (25-45) % Monocytes % (Manual) (2-11) % Eosinophils % (Manual) (2-4) % Neutrophils # (Manual) (6282-8750) /uL RBC Morphology D-Dimer (<500) ng/ml VBG pH (7.33-7.43) VBG pCO2 (45-50) mmHg VBG pO2 (35-45) mmHg VBG HCO3 (24-28) mmol/L VBG Total CO2 (24-29) mmol/L VBG O2 Saturation (70-75) % VBG Base Excess (0-4) mmol/L FiO2 Sodium 136 L (137-145) mmol/L Potassium 5.5 H (3.4-5.1) mmol/L Chloride 102 (98-107) mmol/L Carbon Dioxide 28 (22-32) mmol/L BUN 33 H (7-17) mg/dL Creatinine 0.98 (0.52-1.04) mg/dL Estimated GFR > 60 (>60) mL/min BUN/Creatinine Ratio 33.7 H (6-22) Glucose 380 H (70-100) mg/dL Lactate 1.1 (0.7-2.1) mmol/L Calcium 8.1 L (8.4-10.2) mg/dL Magnesium 2.1 (1.6-2.3) mg/dL Total Bilirubin 0.3 (0.2-1.3) mg/dL GGT (12-43) U/L AST 208 H (14-36) IU/L ALT 104 H (<35) IU/L Alkaline Phosphatase 767 H (38-126) U/L Total Creatine Kinase (30-135) U/L CK-MB (CK-2) CK-MB (CK-2) Rel Index Troponin I (0.01-0.034) ng/mL NT-Pro-B Natriuret Pep (<125) pg/mL Total Protein 6.5 (6.3-8.2) g/dL Albumin 3.0 L (3.5-5.0) g/dL Globulin 3.5 (1.7-4.1) g/dL Albumin/Globulin Ratio 0.9 L (1.0-2.8) Lipase 37 (23-300) U/L Procalcitonin (<0.5) ng/mL Urine RBC (0-5/HPF) Urine WBC (0-5/HPF) Urine Bacteria (None) Micro UA Comment Ketones (<0.27) mmol/L SARS-CoV-2 (PCR) (Negative) Influenza A (RT-PCR) (NEGATIVE) Influenza B (RT-PCR) (NEGATIVE) RSV (PCR) (Negative) Blood Type O Positive Antibody Screen Negative 06/17/22 06/17/22 06/17/22 Range/Units 00:40 00:55 00:58 WBC (4.5-11.0) X10^3/uL RBC (4.0-5.2) X10^6/uL Hgb (12.0-16.0) g/dL Hct (36-46) % MCV (80-100) fL MCH (26-34) PG MCHC (30-36) % RDW (11.6-14.8) % Plt Count (150-400) X10^3/uL Neut % (Auto) Lymph % (Auto) Sunflower % (Auto) Eos % (Auto) Baso % (Auto) Lymph # (Auto) Sunflower # (Auto) Baso # (Auto) Total Counted Seg Neutrophils % (38-70) % Band Neutrophils % (3-7) % Lymphocytes % (Manual) (25-45) % Monocytes % (Manual) (2-11) % Eosinophils % (Manual) (2-4) % Neutrophils # (Manual) (7054-3273) /uL RBC Morphology D-Dimer 1245 H (<500) ng/ml VBG pH (7.33-7.43) VBG pCO2 (45-50) mmHg VBG pO2 (35-45) mmHg VBG HCO3 (24-28) mmol/L VBG Total CO2 (24-29) mmol/L VBG O2 Saturation (70-75) % VBG Base Excess (0-4) mmol/L FiO2 Sodium (137-145) mmol/L Potassium (3.4-5.1) mmol/L Chloride (98-107) mmol/L Carbon Dioxide (22-32) mmol/L BUN (7-17) mg/dL Creatinine (0.52-1.04) mg/dL Estimated GFR (>60) mL/min BUN/Creatinine Ratio (6-22) Glucose (70-100) mg/dL Lactate (0.7-2.1) mmol/L Calcium (8.4-10.2) mg/dL Magnesium (1.6-2.3) mg/dL Total Bilirubin (0.2-1.3) mg/dL GGT 221 H (12-43) U/L AST (14-36) IU/L ALT (<35) IU/L Alkaline Phosphatase (38-126) U/L Total Creatine Kinase 47 (30-135) U/L CK-MB (CK-2) TNP CK-MB (CK-2) Rel Index TNP Troponin I < 0.012 (0.01-0.034) ng/mL NT-Pro-B Natriuret Pep 4860 H (<125) pg/mL Total Protein (6.3-8.2) g/dL Albumin (3.5-5.0) g/dL Globulin (1.7-4.1) g/dL Albumin/Globulin Ratio (1.0-2.8) Lipase (23-300) U/L Procalcitonin 0.26 (<0.5) ng/mL Urine RBC (0-5/HPF) Urine WBC (0-5/HPF) Urine Bacteria (None) Micro UA Comment Ketones (<0.27) mmol/L SARS-CoV-2 (PCR) (Negative) Influenza A (RT-PCR) (NEGATIVE) Influenza B (RT-PCR) (NEGATIVE) RSV (PCR) (Negative) Blood Type Antibody Screen 06/17/22 06/17/22 Range/Units 01:15 02:44 WBC (4.5-11.0) X10^3/uL RBC (4.0-5.2) X10^6/uL Hgb (12.0-16.0) g/dL Hct (36-46) % MCV (80-100) fL MCH (26-34) PG MCHC (30-36) % RDW (11.6-14.8) % Plt Count (150-400) X10^3/uL Neut % (Auto) Lymph % (Auto) Sunflower % (Auto) Eos % (Auto) Baso % (Auto) Lymph # (Auto) Sunflower # (Auto) Baso # (Auto) Total Counted Seg Neutrophils % (38-70) % Band Neutrophils % (3-7) % Lymphocytes % (Manual) (25-45) % Monocytes % (Manual) (2-11) % Eosinophils % (Manual) (2-4) % Neutrophils # (Manual) (7522-7722) /uL RBC Morphology D-Dimer (<500) ng/ml VBG pH (7.33-7.43) VBG pCO2 (45-50) mmHg VBG pO2 (35-45) mmHg VBG HCO3 (24-28) mmol/L VBG Total CO2 (24-29) mmol/L VBG O2 Saturation (70-75) % VBG Base Excess (0-4) mmol/L FiO2 Sodium (137-145) mmol/L Potassium (3.4-5.1) mmol/L Chloride (98-107) mmol/L Carbon Dioxide (22-32) mmol/L BUN (7-17) mg/dL Creatinine (0.52-1.04) mg/dL Estimated GFR (>60) mL/min BUN/Creatinine Ratio (6-22) Glucose (70-100) mg/dL Lactate (0.7-2.1) mmol/L Calcium (8.4-10.2) mg/dL Magnesium (1.6-2.3) mg/dL Total Bilirubin (0.2-1.3) mg/dL GGT (12-43) U/L AST (14-36) IU/L ALT (<35) IU/L Alkaline Phosphatase (38-126) U/L Total Creatine Kinase (30-135) U/L CK-MB (CK-2) CK-MB (CK-2) Rel Index Troponin I (0.01-0.034) ng/mL NT-Pro-B Natriuret Pep (<125) pg/mL Total Protein (6.3-8.2) g/dL Albumin (3.5-5.0) g/dL Globulin (1.7-4.1) g/dL Albumin/Globulin Ratio (1.0-2.8) Lipase (23-300) U/L Procalcitonin (<0.5) ng/mL Urine RBC 1-5/hpf (0-5/HPF) Urine WBC 30-100/hpf H (0-5/HPF) Urine Bacteria Many (>30) H (None) Micro UA Comment * Ketones (<0.27) mmol/L SARS-CoV-2 (PCR) Negative (Negative) Influenza A (RT-PCR) Flu a negative (NEGATIVE) Influenza B (RT-PCR) Flu b negative (NEGATIVE) RSV (PCR) Negative (Negative) Blood Type Antibody Screen Point of Care Testing Test Results Negative Glucose POC 457 Urine Dip Bedside Urine Glucose 1000 mg/dl Bedside Urine Bilirubin - Negative Bedside Urine Ketone - Negative Urine Specific Mor[place] 1.015 Bedside Urine Occult Blood ++ Bedside Urine pH 6.0 Bedside Urine Protein ++ 100 Bedside Urine Urobilinogen - Negative Bedside Urine Nitrite - Negative Bedside Urine Leukocytes + 70 Esterase Point of care testing: Point of Care Testing Test Results Negative Glucose POC 457 Urine Dip Bedside Urine Glucose 1000 mg/dl Bedside Urine Bilirubin - Negative Bedside Urine Ketone - Negative Urine Specific [place] 1.015 Bedside Urine Occult Blood ++ Bedside Urine pH 6.0 Bedside Urine Protein ++ 100 Bedside Urine Urobilinogen - Negative Bedside Urine Nitrite - Negative Bedside Urine Leukocytes + 70 Esterase MDM Narrative Medical decision making narrative: [32] year old patient presents with hypoxemia, weakness, back pain, belly pain and left ear pain Multiple etiologies for patient's symptoms considered including, but not limited to: [DKA, pneumonia, CHF, pulmonary embolism] Prior Charts reviewed in our EMR Primary Historian: patient Labs reviewed and interpreted by myself: Leukocytosis and relative left shift with relative anemia though not to the level of requiring transfusion, no evidence of DKA, VBG with reassuring PH, anion gap within normal limits and serum CO2 unremarkable Imaging reviewed: No pulmonary embolism but she does have multifocal pneumonia and evidence of pleural edema Patient with brittle diabetes presents hypoxemic with evidence of multifocal pneumonia and acute congestive heart failure with hypoxemic respiratory failure, she requires hospitalization for further stabilization and treatment of her underlying conditions Discharge Plan Departure Patient Disposition: Admitted As Inpatient Clinical Impression: Acute hypoxemic respiratory failure, Bilateral pneumonia, Acute pulmonary edema, UTI (urinary tract infection) Admit Date/Time: 06/17/22 06:19 Admit Provider: Amee Mendez
[2022-06-17 00:50] LABS: pH VBG 7.32 (7.33-7.43)
[2022-06-17 00:51] LABS: Fractionated Inspired Oxygen 21; HCO3 VBG 29 mmol/L (24-28); Oxygen Saturation VBG 50 % (70-75); PCO2 VBG 56.5 mmHg (45-50); PO2 VBG 30 mmHg (35-45); Total CO2 VBG 31 mmol/L (24-29)
[2022-06-17] MEDS: SODIUM CHLORIDE 0.9% 1,000 ML 1000 ML IV (01:00)
[2022-06-17 01:05] LABS: Creatine Kinase 47 U/L (30-135); Lactate (Lactic Acid) 1.1 mmol/L (0.7-2.1)
[2022-06-17 01:07] LABS: Alanine Aminotransferase 104 IU/L (<35); Albumin Globulin Ratio 0.9 (1.0-2.8); Alkaline Phosphatase 767 U/L (38-126); Aspartate Aminotransferase 208 IU/L (14-36); BUN Creatinine Ratio 33.7 (6-22); Bilirubin Total 0.3 mg/dL (0.2-1.3); Blood Urea Nitrogen 33 mg/dL (7-17); Calcium 8.1 mg/dL (8.4-10.2); Carbon Dioxide 28 mmol/L (22-32); Chloride 102 mmol/L (98-107); Estimated Glomerular Filt Rate > 60 mL/min (>60); Globulin 3.5 g/dL (1.7-4.1); Glucose 380 mg/dL (70-100); HEMOLYSIS 19 (0-50); Lipase 37 U/L (23-300); Magnesium 2.1 mg/dL (1.6-2.3); Sodium 136 mmol/L (137-145); Total Protein 6.5 g/dL (6.3-8.2)
[2022-06-17 01:10] LABS: Potassium 5.5 mmol/L (3.4-5.1)
--- NOTE | 2022-06-17 01:12 | DI.RAD.S_ITS ---
PROCEDURE: XR CHEST 1V INDICATIONS: hypoxic TECHNIQUE: One view of the chest was acquired. COMPARISON: [facility], CR, XR CHEST 1V, 12/12/2021, 22:48. FINDINGS: Surgical changes and devices: None. Lungs and pleura: Moderate to prominent bilateral interstitial infiltrates can be seen. Lung volumes are low. No pneumothorax or pleural effusions are seen. Mediastinum: Mediastinal contours appear normal. Heart size is normal. Bones and chest wall: No suspicious bony lesions. Overlying soft tissues appear unremarkable. IMPRESSION: Advanced interstitial type infiltrates are seen. Atypical infiltrate (such as COVID pneumonia) is suspected, although please consider pulmonary edema. Dictated by: Remi Polanco M.D. on 06/17/2022 at 0:29 Approved by: Remi Polanco M.D. on 06/17/2022 at 0:31
[2022-06-17 01:19] LABS: NT-proBNP (BNP-Adult 18+) 4860 pg/mL (<125); Troponin I < 0.012 ng/mL (0.01-0.034)
[2022-06-17 01:22] LABS: D Dimer 1245 ng/ml (<500)
[2022-06-17 01:23] LABS: Procalcitonin 0.26 ng/mL (<0.5)
[2022-06-17 01:24] LABS: Hematocrit 31.3 % (36-46); Hemoglobin 9.9 g/dL (12.0-16.0); Mean Corpuscular HGB Conc 31.6 % (30-36); Mean Corpuscular Hemoglobin 27.1 PG (26-34); Mean Corpuscular Volume 85.7 fL (80-100); Platelet Count 635 X10^3/uL (150-400); Red Blood Cell Count 3.65 X10^6/uL (4.0-5.2); Red Cell Distribution Width 13.7 % (11.6-14.8); White Blood Cell Count 19.4 X10^3/uL (4.5-11.0)
[2022-06-17 01:25] LABS: Add Manual Diff / Slide Review YES
[2022-06-17 01:30] LABS: Ketones (Beta-Hydroxybutyrate) 0.14 mmol/L (<0.27)
--- NOTE | 2022-06-17 01:32 | DI.CT.S_ITS ---
PROCEDURE: CT ANGIO CHEST PE PROTOCOL INDICATIONS: Hypoxemia, SOB, back pain, critical Dimer TECHNIQUE: After the administration of intravenous contrast, 2 mm thick sections acquired from the pulmonary apices to the posterior costophrenic angles. 3-dimensional maximum intensity projection (MIP) coronal and sagittal reformats were then acquired through the thorax. For radiation dose reduction, the following was used: automated exposure control, adjustment of mA and/or kV according to patient size. COMPARISON: None. FINDINGS: Image quality: Excellent. Pulmonary arteries: Pulmonary arteries are normal in size, and demonstrate no intraluminal filling defects to suggest central pulmonary embolism. Lungs and pleura: There is a moderate to large right pleural effusion to pleural bibasilar atelectasis. There is extensive thickening interlobular septa extensive interstitial infiltrates in areas of airspace consolidation. Findings may represent edema with possible superimposed Mediastinum: Heart size is normal, without pericardial effusion. No mediastinal or hilar adenopathy. Thoracic aorta is normal in caliber and enhancement. Esophagus is normal in caliber, without hiatal hernia. Bones and chest wall: No suspicious bony lesions. Ribs and thoracic spine appear intact throughout. Thyroid gland is unremarkable. No axillary or supraclavicular adenopathy. Abdomen: An enhancing 6 mm left lobe liver lesion likely represents flash filling of a very small hemangioma. IMPRESSION: 1. No evidence acute pulmonary emboli. 2. Moderately large right pleural effusion mild to moderate left pleural effusion. 3. Pulmonary findings likely represent diffuse pulmonary edema with possible superimposed pneumonia. Comment: Final report is concordant with preliminary interpretation provided by [facility]. Dictated by: Brayden Em M.D. on 06/17/2022 at 7:49 Approved by: Brayden Em M.D. on 06/17/2022 at 7:52
--- NOTE | 2022-06-17 01:35 | DI.CT.S_ITS ---
PROCEDURE: CT ABDOMEN PELVIS W CON INDICATIONS: abdominal pain, back pain, TECHNIQUE: After the administration of intravenous contrast, axial sections acquired from the lung bases to the pubic symphysis. Coronal and sagittal reformats were performed. For radiation dose reduction, the following was used: automated exposure control, adjustment of mA and/or kV according to patient size. COMPARISON: [facility], CT, CT ABDOMEN PELVIS W CON, 10/14/2021, 0:00. FINDINGS: Image quality: Excellent. Lung bases: Moderately large right pleural effusion. Mild to moderate left pleural effusion. Bibasilar pulmonary edema possible bibasilar pneumonia. Heart: No significant findings. ABDOMEN: Liver: Hepatomegaly. Extensive periportal edema. Focal liver mass. Gallbladder: Surgically absent Biliary ducts: Unremarkable. Pancreas: Unremarkable. Spleen: Unremarkable. Adrenal Glands: Unremarkable. Kidneys and Ureters: Unremarkable. Stomach and Bowel: Stomach is [id number]-[id number]-[id number] distended. There is moderately large fecal debris. Somewhat prominent small and large bowel loops may represent ileus pattern. Peritoneum: Mild ascites. No free air. Ventral Wall: No hernias. Abdominal Nodes: There is celiac adenopathy. There is period aortic adenopathy. On image 50/2 is a aortocaval lymph node measuring 1.7 x 1.3 cm is well as a left periaortic lymph node measuring 1.6 x 1 2 cm. The lymph nodes are nonspecific and may potentially be reactive in nature. Vessels: Aorta and inferior vena cava are normal in size. PELVIS: Pelvic Organs: Unremarkable. Bladder: [id number] diffuse bladder wall thickening.. Pelvic Nodes: No enlarged lymph nodes. Miscellaneous: No hernias are seen. Bones: Unremarkable. IMPRESSION: 1. Bilateral pleural effusions, pulmonary findings potentially representing pulmonary edema and possible superimposed pneumonia. 2. Hepatomegaly, prominent periportal edema. 3. Mild ascites. 4. Celiac and retroperitoneal adenopathy is nonspecific. 5. Diffuse bladder wall thickening may indicate cystitis. 6. Possible ileus pattern. Comment: Final report is concordant with preliminary interpretation provided by [facility]. Dictated by: Brayden Em M.D. on 06/17/2022 at 8:00 Approved by: Brayden Em M.D. on 06/17/2022 at 8:08
[2022-06-17] MEDS: methylPREDNISolone 125 MG/2 ML VIAL IV (01:38)
[2022-06-17] MEDS: diphenhydrAMINE 50 MG/ML VIAL 25 MG IV (01:41)
[2022-06-17] MEDS: FAMOTIDINE 20 MG/2 ML VIAL IV (01:42)
[2022-06-17 02:12] LABS: Neutrophils Absolute Manual 17460 /uL (3000-5900); RBC Morphology Normal Morphology; Total Cells Counted 100
[2022-06-17 02:33] LABS: Influenza A - CEPHEID Flu A NEGATIVE (NEGATIVE); Influenza B - CEPHEID Flu B NEGATIVE (NEGATIVE); Respiratory Syncytial Virus Negative (Negative)
[2022-06-17 02:35] LABS: COVID-19 CEPHEID 4-PLEX PCR Negative (Negative)
[2022-06-17 03:15] LABS: Bacteria Urine Many (>30); RBC Urine 1-5/HPF (0-5/HPF); WBC Urine 30-100/HPF (0-5/HPF)
[2022-06-17] MEDS: ONDANSETRON 4 MG/2 ML INJ IV (04:04)
[2022-06-17] MEDS: FUROSEMIDE 40 MG/4 ML VIAL IV ×2 (04:17→14:14)
[2022-06-17] MEDS: cefTRIAXone 1,000 MG in SODIUM CHLORIDE 0.9% 100 ML 200 MG IV ×2 (04:17→06:50)
[2022-06-17] MEDS: HYDROMORPHONE 0.5 MG INJ IV (05:00)
[2022-06-17] MEDS: AZITHROMYCIN 500 MG in DEXTROSE 5% IN WATER 250 ML 250 MG IV (05:00)
--- NOTE | 2022-06-17 05:46 | PM.HP.1 ---
History of Present Illness History of Present Illness Date Patient Seen: 06/17/22 Time Patient Seen: 05:46 Chief complaint: general malaise & ear pain Narrative: ?Ms. Sarabjit Jimenes is a 32-year-old female patient with a history significant for poorly controlled type 1 diabetes, frequent admissions for DKA, migraines and irregular menstruation, ?presents by EMS for evaluation of generalized malaise and feeling unwell for the past few days at least.?Cough nonproductive x1 month, left ear pain.? rining in her ears, sore throat, dizzy, weak and lightheaded, back pain and abdominal pain.? She denies any new medications or change in her typical regimen. Patient denies fever body aches or chills, nasal drainage, does endorse pain with deep breathing, increased fatigue and weakness. She notes that she is had improved blood sugar control lately, has not traveled or had exposure to any ill persons, has received no vaccines as she has a bad reaction to them. On admit patient denies chest pain, changes in vision, difficulty swallowing, speech impairment, numbness, tingling, difficulty with ambulation, recent falls, head injury, LOC, fever, chills, recent exposure to illness, vomiting, urinary incontinence/retention, dysuria, frequency, urgency, hematuria, bowel changes, constipation, incontinence, melena, rashes, recent changes to medication, illness, injury, or trauma. Admit temp 97.6?, 145/86, 95, 18, 98% on 2 L nasal cannula, ABGs pH 7.32, pCO2 56.5, PO2 30, bicarb 29, TCO2 31, O2 sat 50%, base excess 3, FiO2 of 21. WBC 19.4 left shift 17,460, procalcitonin negative. H&H 9.931.3, platelets 635. Sodium 136, BUN 33, potassium 5.5, glucose 380, calcium 8.1, magnesium is stable at 2.1, AST 208, ALT 104, alk-phos 767, D-dimer 1245, lactate 1.1, BNP 4860, albumin 3.0, ketones are negative, COVID, influenza a/B, RSV are negative, chest x-ray demonstrates advanced interstitial type infiltrates atypical possible COVID pneumonia versus pulmonary edema. CTA negative for PE, pulmonary edema with moderate sized right pleural effusion and small left pleural effusion, multilobular reticular nodular opacities likely representing multilevel pneumonia, 6 mm enhancing nodule left hepatic lobe may represent a flash filling hemangioma. Heterogeneous enhancement of the liver with moderate periportal edema consider possible hepatitis/passive venous congestion. CT of abdomen pelvis notes additional hepatomegaly with moderate periportal edema, retroperitoneal lymphadenopathy, diffuse urinary wall thickening. Patient admitted for acute hypercapnic respiratory failure with hypoxia secondary to pneumonia, with bilateral pleural effusions, pulmonary edema, transaminase with periportal edema, and pyelonephritis Patient History Medical History DKA (diabetic ketoacidoses) History of pyelonephritis Irregular menstrual cycle Migraine headache Nephrolithiasis Noncompliance w/medication treatment due to intermit use of medication Type 1 diabetes mellitus Surgical History History of ureter stent Hx of cataract surgery Hx of local excision of skin lesion Status post cholecystectomy Status post laser lithotripsy of ureteral calculus Anderson teeth extracted Family & Social History Family History Father In good health Mother Cardiac disease Social History: household members significant other Safety & Behavioral: Feels Safe in Current Yes Environment Been Physically Hurt or No Threatened By a Person Tobacco & Substance use: Smoking Status Never smoker alcohol intake never alcohol intake frequency holiday/special occasion Substance Use Type does not use Meds Home Medications and Allergies Home Medications Medication Instructions Recorded Confirmed Type glucose 4 gram chewable tablet 4 gram PO Q15M PRN hypoglycemia 12/12/18 11/29/21 Rx #30 tabs glucagon (human recombinant) 1 mg 1 mg SUBCUT DIRECTED 02/16/19 11/29/21 History solution for injection (Glucagon Emergency Kit) diphenhydramine HCl 50 mg capsule 50 mg PO BEDTIME PRN Sleep 09/29/20 11/29/21 History ondansetron 4 mg disintegrating 4 mg PO Q8H PRN nausea and 11/08/21 11/29/21 Rx tablet vomiting #10 tabs insulin aspart U-100 100 unit/mL See Rx Instructions .Route .COMPLEX 11/13/21 11/29/21 History (3 mL) subcutaneous pen (Novolog FlexPen U-100 Insulin aspart) insulin degludec 200 unit/mL (3 13 ea SUBCUT BID 11/13/21 11/29/21 History mL) subcutaneous pen (Tresiba FlexTouch U-200 insulin) methocarbamol 500 mg tablet 1 tab PO TID 11/13/21 11/29/21 History pantoprazole 40 mg tablet,delayed 40 mg PO BEDTIME 11/13/21 11/29/21 History release sennosides 8.6 mg tablet (senna) 8.6 mg PO DAILY 11/13/21 11/29/21 History acetaminophen 325 mg tablet 975 mg PO Q8H #30 tabs 11/18/21 11/29/21 Rx hydromorphone 2 mg tablet 2 mg PO Q4HR PRN Pain, Moderate 11/18/21 11/29/21 Rx (4-6) #10 tabs naloxone 4 mg/actuation nasal 1 spray intranasal Q2M #2 ea 11/18/21 11/29/21 Rx spray (Narcan) tramadol 50 mg tablet 50 mg PO Q4H PRN Pain, Moderate 11/18/21 11/29/21 Rx (4-6) #15 tabs hydrocodone 5 mg-acetaminophen 325 1 tab PO BEDTIME PRN pain #10 tabs 12/13/21 Rx mg tablet hydrocodone 5 mg-acetaminophen 325 1 tab PO Q6H PRN pain #10 tabs 01/02/22 Rx mg tablet doxycycline monohydrate 100 mg 100 mg PO BID #20 caps 03/18/22 Rx capsule hydrocodone 5 mg-acetaminophen 325 1 tab PO Q6H PRN pain #20 tabs 03/18/22 Rx mg tablet ondansetron 4 mg disintegrating 4 mg PO Q8H PRN nausea and 03/18/22 Rx tablet vomiting #15 tabs valacyclovir 1 gram tablet 1,000 mg PO TID #30 tabs 03/18/22 Rx (Valtrex) Allergies Allergy/AdvReac Type Severity Reaction Status Date / Time abdalla [ABDALLA] Allergy Intermediate Hives, Verified 01/10/22 09:24 pruritus iodine [IODINE] Allergy Intermediate rash, itchy Verified 01/10/22 09:24 morphine Allergy Intermediate Difficulty Verified 01/10/22 09:24 Breathing shellfish derived Allergy Intermediate rash Verified 01/10/22 09:24 [SHELLFISH DERIVED] adhesive [ADHESIVE] Allergy Unknown tape Verified 01/10/22 09:24 latex [LATEX] Allergy Unknown Hives Verified 01/10/22 09:24 Review of Systems Review of Systems Narrative: All 12 point systems reviewed with the patient and are negative except otherwise documented. Exam Vital Signs (past 8 hours): - 06/17/22 00:43 Temperature 97.6 F Pulse Rate 95 H Respiratory Rate 18 Blood Pressure 145/86 H Pulse Oximetry 98 Oxygen Delivery Method Nasal Cannula Oxygen Flow Rate 2 Oxygen Delivery Method Nasal Cannula Oxygen Flow Rate 2 Narrative Exam Narrative: General: Patient is a well-developed, well-nourished female, moderately ill-appearing in no acute distress at this time. HEENT: Normocephalic, atraumatic, extraocular muscles intact, oral pharynx is clear and mucous membranes are moist. Neck is supple and symmetric, trachea is midline, no adenopathy, no thyroid enlargement, nontender, no masses palpated. Negative for JVD Chest: no nasal flaring, retractions, positive tachypneic labored breathing Lungs: Auscultation of all lung valentin are decreased in bases, poor air exchange, occasional expiratory wheezing diffusely throughout. Cardio: regular rate and rhythm without murmur, rubs, or gallops, no carotid bruit, no cardiac pulsations present. Abdomen: Soft diffusely tender Bowel sounds are present in all 4 quadrants without guarding or rebound, positive bilateral CVA tenderness. Musculoskeletal: Muscle strength and tone are equal within normal limits, no deformity, crepitus, effusions, cyanosis, clubbing present. Mild +1 edema to right foot Full range of motion intact radial and pedal pulses are normal. Skin: Warm dry and intact without rashes, ulcerations or petechiae. Neuro: Alert and orientated x3, strength is +5/5 in all extremities, sensation to touch intact, no gross deficits noted of cranial nerves. Psych: Patient has a well-kept appearance, appropriate affect, mental status attitude thought context and judgment are appropriate for age. Objective Labs 06/17/22 00:40 06/17/22 00:40 Labs: Laboratory Results - last 24 hr 06/17/22 06/17/22 06/17/22 00:38 00:40 00:40 WBC 19.4 H RBC 3.65 L Hgb 9.9 L Hct 31.3 L MCV 85.7 MCH 27.1 MCHC 31.6 RDW 13.7 Plt Count 635 H Neut % (Auto) Not Reportable Lymph % (Auto) Not Reportable Garland % (Auto) Not Reportable Eos % (Auto) Not Reportable Baso % (Auto) Not Reportable Lymph # (Auto) Not Reportable [place] # (Auto) Not Reportable Baso # (Auto) Not Reportable Total Counted 100 Seg Neutrophils % 85.0 H Band Neutrophils % 5.0 Lymphocytes % (Manual) 2.0 L Monocytes % (Manual) 6.0 Eosinophils % (Manual) 2.0 Neutrophils # (Manual) 50472 H RBC Morphology Normal morphology D-Dimer VBG pH 7.32 L VBG pCO2 56.5 H VBG pO2 30 L VBG HCO3 29 H VBG Total CO2 31 H VBG O2 Saturation 50 L VBG Base Excess 3.0 FiO2 21 Sodium Potassium Chloride Carbon Dioxide BUN Creatinine Estimated GFR BUN/Creatinine Ratio Glucose Lactate Calcium Magnesium Total Bilirubin AST ALT Alkaline Phosphatase Total Creatine Kinase CK-MB (CK-2) CK-MB (CK-2) Rel Index Troponin I NT-Pro-B Natriuret Pep Total Protein Albumin Globulin Albumin/Globulin Ratio Lipase Procalcitonin Urine RBC Urine WBC Urine Bacteria Micro UA Comment Ketones 0.14 SARS-CoV-2 (PCR) Influenza A (RT-PCR) Influenza B (RT-PCR) RSV (PCR) Blood Type Antibody Screen 06/17/22 06/17/22 06/17/22 00:40 00:40 00:40 WBC RBC Hgb Hct MCV MCH MCHC RDW Plt Count Neut % (Auto) Lymph % (Auto) Garland % (Auto) Eos % (Auto) Baso % (Auto) Lymph # (Auto) Garland # (Auto) Baso # (Auto) Total Counted Seg Neutrophils % Band Neutrophils % Lymphocytes % (Manual) Monocytes % (Manual) Eosinophils % (Manual) Neutrophils # (Manual) RBC Morphology D-Dimer VBG pH VBG pCO2 VBG pO2 VBG HCO3 VBG Total CO2 VBG O2 Saturation VBG Base Excess FiO2 Sodium 136 L Potassium 5.5 H Chloride 102 Carbon Dioxide 28 BUN 33 H Creatinine 0.98 Estimated GFR > 60 BUN/Creatinine Ratio 33.7 H Glucose 380 H Lactate 1.1 Calcium 8.1 L Magnesium 2.1 Total Bilirubin 0.3 AST 208 H ALT 104 H Alkaline Phosphatase 767 H Total Creatine Kinase CK-MB (CK-2) CK-MB (CK-2) Rel Index Troponin I NT-Pro-B Natriuret Pep Total Protein 6.5 Albumin 3.0 L Globulin 3.5 Albumin/Globulin Ratio 0.9 L Lipase 37 Procalcitonin Urine RBC Urine WBC Urine Bacteria Micro UA Comment Ketones SARS-CoV-2 (PCR) Influenza A (RT-PCR) Influenza B (RT-PCR) RSV (PCR) Blood Type O Positive Antibody Screen Negative 06/17/22 06/17/22 06/17/22 00:40 00:58 01:15 WBC RBC Hgb Hct MCV MCH MCHC RDW Plt Count Neut % (Auto) Lymph % (Auto) Garland % (Auto) Eos % (Auto) Baso % (Auto) Lymph # (Auto) Garland # (Auto) Baso # (Auto) Total Counted Seg Neutrophils % Band Neutrophils % Lymphocytes % (Manual) Monocytes % (Manual) Eosinophils % (Manual) Neutrophils # (Manual) RBC Morphology D-Dimer 1245 H VBG pH VBG pCO2 VBG pO2 VBG HCO3 VBG Total CO2 VBG O2 Saturation VBG Base Excess FiO2 Sodium Potassium Chloride Carbon Dioxide BUN Creatinine Estimated GFR BUN/Creatinine Ratio Glucose Lactate Calcium Magnesium Total Bilirubin AST ALT Alkaline Phosphatase Total Creatine Kinase 47 CK-MB (CK-2) TNP CK-MB (CK-2) Rel Index TNP Troponin I < 0.012 NT-Pro-B Natriuret Pep 4860 H Total Protein Albumin Globulin Albumin/Globulin Ratio Lipase Procalcitonin 0.26 Urine RBC Urine WBC Urine Bacteria Micro UA Comment Ketones SARS-CoV-2 (PCR) Negative Influenza A (RT-PCR) Flu a negative Influenza B (RT-PCR) Flu b negative RSV (PCR) Negative Blood Type Antibody Screen 06/17/22 02:44 WBC RBC Hgb Hct MCV MCH MCHC RDW Plt Count Neut % (Auto) Lymph % (Auto) Garland % (Auto) Eos % (Auto) Baso % (Auto) Lymph # (Auto) Garland # (Auto) Baso # (Auto) Total Counted Seg Neutrophils % Band Neutrophils % Lymphocytes % (Manual) Monocytes % (Manual) Eosinophils % (Manual) Neutrophils # (Manual) RBC Morphology D-Dimer VBG pH VBG pCO2 VBG pO2 VBG HCO3 VBG Total CO2 VBG O2 Saturation VBG Base Excess FiO2 Sodium Potassium Chloride Carbon Dioxide BUN Creatinine Estimated GFR BUN/Creatinine Ratio Glucose Lactate Calcium Magnesium Total Bilirubin AST ALT Alkaline Phosphatase Total Creatine Kinase CK-MB (CK-2) CK-MB (CK-2) Rel Index Troponin I NT-Pro-B Natriuret Pep Total Protein Albumin Globulin Albumin/Globulin Ratio Lipase Procalcitonin Urine RBC 1-5/hpf Urine WBC 30-100/hpf H Urine Bacteria Many (>30) H Micro UA Comment * Ketones SARS-CoV-2 (PCR) Influenza A (RT-PCR) Influenza B (RT-PCR) RSV (PCR) Blood Type Antibody Screen Assessment & Plan Assessment & Plan narrative: ?Ms. Sarabjit Jimenes is a 32-year-old female patient with a history significant for poorly controlled brittle type 1 diabetes, frequent admissions for DKA, migraines and irregular menstruation, ?presents by EMS for evaluation of generalized malaise and feeling unwell for the past few days at least.?Cough nonproductive x1 month, left ear pain.? rining in her ears, sore throat, dizzy, weak and lightheaded, back pain and abdominal pain. Patient admitted for acute hypercapnic respiratory failure with hypoxia secondary to pneumonia, with bilateral pleural effusions, pulmonary edema, transaminase with periportal edema, and pyelonephritis-patient being admitted to the ICU with [facility] ICU due to being a brittle insulin-dependent type 1 diabetic with repeated admits for DKA. 1. Acute hypercapnic respiratory failure with hypoxia, acute, secondary to pneumonia, bilateral pleural effusions, pulmonary edema, acute, present on admission -Admit temp 97.6?, 145/86, 95, 18, 98% on 2 L nasal cannula, patient was saturating in the low-to-mid 80s on room air. -ABGs pH 7.32, pCO2 56.5, PO2 30, bicarb 29, TCO2 31, O2 sat 50%, base excess 3, FiO2 of 21. -consult respiratory therapy, nebulizers q.4h while awake, incentive spirometry, prednisone 40 mg p.o. q.day -Rocephin and azithromycin -Lasix 20mg IV QD -Daily weights -chest x-ray demonstrates advanced interstitial type infiltrates atypical possible COVID pneumonia versus pulmonary edema -D-dimer 1245, -CTA negative for PE, pulmonary edema with moderate sized right pleural effusion and small left pleural effusion, multilobular reticular nodular opacities likely representing multilevel pneumonia. -lactate 1.1, BNP 4860, albumin 3.0, ketones are negative, COVID, influenza a/B, RSV are negative -Ordered Rapid Strep -?Echocardiogram was done which revealed an EF of 40-45% with global hypokinesis.? Cardiology was subsequently contacted with recommendations for a nuclear stress test.? This was completed on November 14 which showed no evidence of pharmacologic induced ischemia or scar.? LVEF was 73%. -Ordered echo 2. Transaminitis, with periportal edema, anemia, acute, present on admission -AST 208, ALT 104, alk-phos 767, H&H 9.931.3, platelets 635. -CTA: 6 mm enhancing nodule left hepatic lobe may represent a flash filling hemangioma. Heterogeneous enhancement of the liver with moderate periportal edema consider possible hepatitis/passive venous congestion. -CT of abdomen pelvis notes additional hepatomegaly with moderate periportal edema, retroperitoneal lymphadenopathy, diffuse urinary wall thickening. -Ordered GGT - ABD U/S RT upper quad 3. Pyelonephritis, acute, present on admission -Urine: Positive WBC 3200, bacteria>30-urine culture pending - WBC 19.4 left shift 17,460 -CT of abdomen pelvis notes diffuse urinary wall thickening -Rocephin Q 24 4. Brittle insulin-dependent type 1 diabetic, with hyperglycemia, acute on chronic, poorly controlled, present on admission -patient has had repeated admissions for DKA -Sodium 136, BUN 33, potassium 5.5, glucose 380, calcium 8.1, magnesium 2.1 -creatinine and GFR are WNL -patient admitted under diabetic protocol, will substitute Lantus for her Tresiba, and is on a medium dose sliding scale -A1c ordered 5. GERD, chronic, present on admission -continue PPI 6. Malnutrition, mild, acute on chronic, present on admission -as evidence by BMI 21.4 -patient's malnutrition places them at high risk for medical and surgical complications in relation to acute illness/chronic illness. This increases the difficulty in complexity of medical management and increases the chances poor outcomes such as mortality and morbidity as well as impaired wound healing, and immune suppression. -dietary consult ordered to evaluate and implement steps to improve caloric intake and nutrition. Code status:Full Surrogate decision maker: Mother COVID PCR: Negative COVID vaccination: Unvaccinated DVT/VTE prophylaxis: Holding VTE medication due to acute anemia, SCDs only Disposition: Patient admitted to the ICU expected length of stay greater than 2 midnights. I have utilized all available immediate resources to obtain, update, or review the patient's current medications. I confirmed that the patient's advanced care plan is present, Code status is documented and/or surrogate decision maker is listed in the patient's medical record. I have personally reviewed patient's chart notes from PCP, specialists, diagnostic imaging, and laboratory results. Time Spent With Patient Critical Care time: I spent a total of [] minutes of critical care time on this patient's care today; this time is exclusive of procedural time.
[2022-06-17 06:43] LABS: Gamma Glutamyl Transpeptidase 221 U/L (12-43)
--- NOTE | 2022-06-17 07:03 | DI.US.S_ITS ---
PROCEDURE: US ABDOMEN LIMITED INDICATIONS: ABNORMAL LIVER ON CT TECHNIQUE: Real-time scanning was performed of the abdominal and retroperitoneal organs, with image documentation. COMPARISON: [facility], CT, CT ANGIO CHEST PE PROTOCOL, 06/17/2022, 1:35. [facility], US, US ABDOMEN LIMITED, 11/13/2021, 11:13. FINDINGS: Liver: Liver is normal in size and homogeneous in echotexture. Normal main portal vein Gallbladder: Cholecystectomy Biliary ducts: Intrahepatic bile ducts are non-dilated. Extrahepatic bile duct caliber measures 3.7 mm. Normal is 6-7 mm or less in diameter, or 10 mm or less post-cholecystectomy. Miscellaneous: No free abdominal fluid. IMPRESSION: Unremarkable ultrasound of the right upper quadrant. Liver has a normal homogeneous echotexture Approved by: Waylon Plaza M.D. on 06/17/2022 at 10:50
--- NOTE | 2022-06-17 07:46 | DI.ECHO.S_ITS ---
[facility] +---------+ : : [address] : : : : [id number] : : : : Phone: [phone] Echocardiogram Report + + :Name: ANGEL VERA Study Date: 06/17/2022 Height: 61 in : :[facility] ReadingLocation: Weight: 113 lb : : Gender: Female BSA: 1.5 m2 : :: 1990 Age: 32 yrs BP: 158/96 mmHg: :Reason For Study: PREVIOUS ABNORMAL ECHO : :Ordering Physician: BARRINGTON, : :JEFE Performed By: Jie Salinas : :Referring: JEFE FERRIS : + + Interpretation Summary The ejection fraction is estimated to be 45-50%. Left ventricular global longitudinal strain average is -16.2%. Diastolic function could not be accurately assessed due to tachycardia. The right ventricle is normal in size and function. There is mild tricuspid regurgitation. Pulmonary artery pressures cannot be estimated because of the lack of a measurable TR jet velocity. Compared to the prior study dated 11/14/2021, the left ventricular systolic function has slightly improved in both ejection fraction and strain. Procedure: A two-dimensional transthoracic echocardiogram with color flow and Doppler was performed. The study quality was technically good. Comparison is made with the echocardiogram of 11/14/2021. The patient was in sinus tachycardia with heart rates between 98-113 bpm during the exam. Left Ventricle: The left ventricle is normal in size and wall thickness. Left ventricular global longitudinal strain average is -16.2%. Previous strain of -12 on 11/14/2021. The ejection fraction is estimated to be 45-50%. Diastolic function could not be accurately assessed due to tachycardia. Right Ventricle: The right ventricle is normal in size and function. Atria: The left atrial size is normal. Right atrial size is normal. There is no Doppler evidence for an interatrial shunt. Mitral Valve: The mitral valve is normal in structure and function. There is trace mitral regurgitation. Aortic Valve: The aortic valve is trileaflet. The aortic valve opens well. There is no aortic valve stenosis. No aortic regurgitation is present. Tricuspid Valve: The tricuspid valve leaflets are thin and pliable. There is mild tricuspid regurgitation. Pulmonary artery pressures cannot be estimated because of the lack of a measurable TR jet velocity. Pulmonic Valve: The pulmonic valve leaflets are thin and pliable; valve motion is normal. There is no pulmonic valvular regurgitation. Great Vessels: The aortic root is normal size. The dimensions of the ascending aorta are normal. The IVC is of normal diameter and collapses greater than 50% with a sniff. This suggests a low right atrial pressure of 3 mm Hg. Pericardium/ Pleura There is no pericardial effusion. There is no pleural effusion. MMode/2D Measurements & Calculations LVIDd: 4.0 cm LVOT diam: 1.6 cm LVIDs: 3.0 cm Ao root diam: 2.5 cm FS: 25.7 % asc Aorta Diam: 2.8 cm IVSd: 0.71 cm Ao Arch Diam (Prox Trans): 2.6 cm LVPWd: 0.68 cm LV naranjo. diameter/BSA (cm/m^2): 2.7 LV sys. diameter/BSA (cm/m^2): 2.0 LA A2 area: 17.1 cm2 RA long axis: 3.8 cm LA A4 area: 15.0 cm2 RA area: 10.8 cm2 LA length (vol): 4.7 cm RA vol: 25.7 ml LA vol: 47.0 ml RA : 17.3 ml/m2 LA vol index: 31.7 ml/m2 IVC diam: 1.7 cm RVD1 (basal): 3.2 cm RVD2 (mid): 2.8 cm TAPSE: 1.8 cm Doppler Measurements & Calculations Ao V2 max: 133.1 cm/sec LVOT Max Pepito: 99.7 cm/sec Ao V2 mean: 94.2 cm/sec LV V1 max P.0 mmHg Ao max P.1 mmHg LV V1 VTI: 20.3 cm Ao mean P.9 mmHg TORI(I,D): 1.6 cm2 Ao V2 VTI: 25.8 cm TORI(V,D): 1.5 cm2 sev ratio: 0.79 TORI indexed to BSA (cm^2/m^2): 1.0 MV E max pepito: 110.9 cm/sec PA V2 max: 73.9 cm/sec MV A max pepito: 127.9 cm/sec PA V2 mean: 56.0 cm/sec MV E/A: 0.87 PA mean P.3 mmHg Med Peak E' Pepito: 8.5 cm/sec PA pr(Accel): 36.2 mmHg E/E' med: 13.1 Lat Peak E' Pepito: 10.6 cm/sec E/E' lat: 10.4 E/e' average: 11.8 MV dec time: 0.14 sec [facility].1 ml Reading Physician:01:39 PM
[2022-06-17] MEDS: INSULIN LISPRO 100 UNIT/ML 3ML VIAL SUBCUT ×4 (07:57→20:44)
[2022-06-17] MEDS: TRAMADOL 50 MG TABLET PO ×2 (08:15→13:16)
[2022-06-17 08:28] LABS: Fractionated Inspired Oxygen 28; HCO3 VBG 25 mmol/L (24-28); Oxygen Saturation VBG 84 % (70-75); PCO2 VBG 42.8 mmHg (45-50); PO2 VBG 50 mmHg (35-45); Total CO2 VBG 26 mmol/L (24-29); pH VBG 7.38 (7.33-7.43)
[2022-06-17 08:29] LABS: Add Manual Diff / Slide Review NO; Basophils Absolute Auto 0 /uL (0-100); Basophils Percent Auto 0.2 % (0-2); Eosinophils Absolute Auto 0 /uL (0-450); Hemoglobin 10.5 g/dL (12.0-16.0); Lymphocytes Absolute Auto 400 /uL (1100-4500); Lymphocytes Percent Auto 2.3 % (25-40); Mean Corpuscular Hemoglobin 26.8 PG (26-34); Mean Corpuscular Volume 86.7 fL (80-100); Monocytes Absolute Auto 100 /uL (0-900); Monocytes Percent Auto 0.5 % (3-14); Neutrophils Absolute Auto 16500 /uL (1500-7000); Platelet Count 650 X10^3/uL (150-400); Red Blood Cell Count 3.93 X10^6/uL (4.0-5.2); Red Cell Distribution Width 13.5 % (11.6-14.8)
[2022-06-17 08:36] LABS: INR 1.1 (0.9-1.3); Prothrombin Time 12.4 SECONDS (10.1-12.7)
[2022-06-17] MEDS: predniSONE 20 MG TABLET 40 MG PO (08:38)
[2022-06-17] MEDS: INSULIN GLARGINE 100 UNIT/ML 3ML PEN 20 UNIT SUBCUT (08:39)
[2022-06-17 08:44] LABS: Lactate (Lactic Acid) 0.9 mmol/L (0.7-2.1)
[2022-06-17 08:45] LABS: Alanine Aminotransferase 117 IU/L (<35); Albumin 3.4 g/dL (3.5-5.0); Albumin Globulin Ratio 0.9 (1.0-2.8); Alkaline Phosphatase 876 U/L (38-126); Aspartate Aminotransferase 92 IU/L (14-36); BUN Creatinine Ratio 37.2 (6-22); Bilirubin Total 0.3 mg/dL (0.2-1.3); Blood Urea Nitrogen 35 mg/dL (7-17); Carbon Dioxide 24 mmol/L (22-32); Chloride 99 mmol/L (98-107); Estimated Glomerular Filt Rate > 60 mL/min (>60); HEMOLYSIS < 15 (0-50); Hemoglobin A1C% w Est Avg Glu 11.2 % (4.0-6.0); Magnesium 2.1 mg/dL (1.6-2.3); Sodium 137 mmol/L (137-145); Total Protein 7.4 g/dL (6.3-8.2)
[2022-06-17 08:48] LABS: Potassium 5.8 mmol/L (3.4-5.1)
[2022-06-17 08:49] LABS: Glucose 494 mg/dL (70-100)
[2022-06-17] MEDS: FUROSEMIDE 40 MG/4 ML VIAL 20 MG IV (08:51)
[2022-06-17 09:00] LABS: Procalcitonin 0.25 ng/mL (<0.5)
--- NOTE | 2022-06-17 09:00 | PC.NURSE ---
pt placed on humidified oxygen at 2lnc.reports she has a history of nose bleeds without humidification.
[2022-06-17] MEDS: methocarbamoL 500 MG TABLET PO (10:05)
--- NOTE | 2022-06-17 11:59 | PM.CN.EICU ---
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 Mancuso bedside nurse [facility] Medical History DKA (diabetic ketoacidoses) History of pyelonephritis Irregular menstrual cycle Migraine headache Nephrolithiasis Noncompliance w/medication treatment due to intermit use of medication Type 1 diabetes mellitus Surgical History History of ureter stent Hx of cataract surgery Hx of local excision of skin lesion Status post cholecystectomy Status post laser lithotripsy of ureteral calculus [place] teeth extracted Family History Father In good health Mother Cardiac disease Social History details: Engaged household members: significant other Smoking Status: Never smoker alcohol intake: never Current Medications Current Medications Medications: Home Medications glucose 4 gram chewable tablet 4 gram PO Q15M PRN hypoglycemia #30 tabs 12/12/18 [Rx Confirmed 11/29/21] glucagon (human recombinant) 1 mg solution for injection (Glucagon Emergency Kit) 1 mg SUBCUT DIRECTED 02/16/19 [History Confirmed 11/29/21] diphenhydramine HCl 50 mg capsule 50 mg PO BEDTIME PRN Sleep 09/29/20 [History Confirmed 11/29/21] ondansetron 4 mg disintegrating tablet 4 mg PO Q8H PRN nausea and vomiting #10 tabs 11/08/21 [Rx Confirmed 11/29/21] insulin aspart U-100 100 unit/mL (3 mL) subcutaneous pen (Novolog FlexPen U-100 Insulin aspart) See Rx Instructions .Route .COMPLEX 11/13/21 [History Confirmed 11/29/21] insulin degludec 200 unit/mL (3 mL) subcutaneous pen (Tresiba FlexTouch U-200 insulin) 13 ea SUBCUT BID 11/13/21 [History Confirmed 11/29/21] methocarbamol 500 mg tablet 1 tab PO TID 11/13/21 [History Confirmed 11/29/21] pantoprazole 40 mg tablet,delayed release 40 mg PO BEDTIME 11/13/21 [History Confirmed 11/29/21] sennosides 8.6 mg tablet (senna) 8.6 mg PO DAILY 11/13/21 [History Confirmed 11/29/21] acetaminophen 325 mg tablet 975 mg PO Q8H #30 tabs 11/18/21 [Rx Confirmed 11/29/21] hydromorphone 2 mg tablet 2 mg PO Q4HR PRN Pain, Moderate (4-6) #10 tabs 11/18/21 [Rx Confirmed 11/29/21] naloxone 4 mg/actuation nasal spray (Narcan) 1 spray intranasal Q2M #2 ea 11/18/21 [Rx Confirmed 11/29/21] tramadol 50 mg tablet 50 mg PO Q4H PRN Pain, Moderate (4-6) #15 tabs 11/18/21 [Rx Confirmed 11/29/21] hydrocodone 5 mg-acetaminophen 325 mg tablet 1 tab PO BEDTIME PRN pain #10 tabs 12/13/21 [Rx] hydrocodone 5 mg-acetaminophen 325 mg tablet 1 tab PO Q6H PRN pain #10 tabs 01/02/22 [Rx] doxycycline monohydrate 100 mg capsule 100 mg PO BID #20 caps 03/18/22 [Rx] hydrocodone 5 mg-acetaminophen 325 mg tablet 1 tab PO Q6H PRN pain #20 tabs 03/18/22 [Rx] ondansetron 4 mg disintegrating tablet 4 mg PO Q8H PRN nausea and vomiting #15 tabs 03/18/22 [Rx] valacyclovir 1 gram tablet (Valtrex) 1,000 mg PO TID #30 tabs 03/18/22 [Rx] Visit Medications (administered) Generic Name Dose Route Start Last Admin Trade Name Freq PRN Reason Stop Dose Admin Furosemide 20 mg 06/17/22 09:00 06/17/22 08:51 Furosemide 40 Mg/4 Ml Vial IV 20 mg DAILY BLAISE Administration Ceftriaxone Sodium 1,000 mg/ 100 mls @ 200 mls/hr 06/17/22 06:15 06/17/22 07:40 Sodium Chloride IV 06/22/22 06:14 Infused Q24H BLAISE Infusion Azithromycin 500 mg/ Dextrose 250 mls @ 250 mls/hr 06/17/22 06:15 06/17/22 06:39 IV 06/20/22 06:14 Not Given Q24H [facility] Insulin Glargine 20 unit 06/17/22 09:00 06/17/22 08:39 Insulin Glargine 100 Unit/Ml 3ml Pen SUBCUT 20 unit DAILY BLAISE Administration Insulin Human Lispro 0 unit 06/17/22 07:45 06/17/22 07:57 Insulin Lispro 100 Unit/Ml 3ml Vial SUBCUT 8 unit ACHS [facility] Administration Protocol Methocarbamol 500 mg 06/17/22 07:46 06/17/22 10:05 Methocarbamol 500 Mg Tablet PO 500 mg TID PRN Administration Muscle Spasm Prednisone 40 mg 06/17/22 09:00 06/17/22 08:38 Prednisone 20 Mg Tablet PO 06/21/22 08:59 40 mg DAILY BLAISE Administration Tramadol HCl 50 mg 06/17/22 07:46 06/17/22 08:15 Tramadol 50 Mg Tablet PO 50 mg Q4H PRN Administration Pain, Moderate (4-6) Exam Vital Signs (past 8 hours): - 06/17/22 04:00 06/17/22 04:44 06/17/22 04:46 Pulse Rate 99 H 107 H 105 H Respiratory Rate Blood Pressure Pulse Oximetry 97 81 L 93 Oxygen Delivery Method Oxygen Flow Rate 06/17/22 04:46 06/17/22 05:00 06/17/22 05:30 Pulse Rate 97 H 101 H Respiratory Rate Blood Pressure 157/103 H Pulse Oximetry 97 93 Oxygen Delivery Method Oxygen Flow Rate 06/17/22 06:00 06/17/22 06:30 06/17/22 07:00 Pulse Rate 104 H 101 H 100 H Respiratory Rate Blood Pressure 156/96 H Pulse Oximetry 92 92 94 Oxygen Delivery Method Oxygen Flow Rate 06/17/22 07:17 06/17/22 07:17 06/17/22 07:30 Pulse Rate 101 H 98 H Respiratory Rate Blood Pressure 156/96 H Pulse Oximetry 93 94 Oxygen Delivery Method Oxygen Flow Rate 06/17/22 07:33 06/17/22 07:33 06/17/22 08:00 Pulse Rate 100 H 100 H Respiratory Rate 24 Blood Pressure 159/95 H Pulse Oximetry 89 L 91 Oxygen Delivery Method Oxygen Flow Rate 06/17/22 08:25 06/17/22 08:25 06/17/22 08:30 Pulse Rate 102 H Respiratory Rate 17 Blood Pressure 184/114 H 167/104 H Pulse Oximetry 94 Oxygen Delivery Method Oxygen Flow Rate 06/17/22 08:30 06/17/22 09:00 06/17/22 09:00 Pulse Rate 102 H 101 H Respiratory Rate 22 21 Blood Pressure 153/97 H Pulse Oximetry 93 93 Oxygen Delivery Method Oxygen Flow Rate 06/17/22 09:30 06/17/22 09:58 06/17/22 09:58 Pulse Rate 104 H 100 H Respiratory Rate 36 H 20 Blood Pressure 156/93 H Pulse Oximetry 91 92 Oxygen Delivery Method Oxygen Flow Rate 06/17/22 10:00 06/17/22 10:00 06/17/22 10:30 Pulse Rate 99 H Respiratory Rate 17 Blood Pressure 155/87 H 158/96 H Pulse Oximetry 92 Oxygen Delivery Method Oxygen Flow Rate 06/17/22 10:30 06/17/22 11:00 06/17/22 11:00 Pulse Rate 100 H 101 H Respiratory Rate 13 18 Blood Pressure 160/92 H Pulse Oximetry 93 94 Oxygen Delivery Method Room Air Oxygen Flow Rate 06/17/22 11:30 06/17/22 11:30 Pulse Rate 100 H Respiratory Rate 18 Blood Pressure 154/97 H Pulse Oximetry 94 Oxygen Delivery Method Nasal Cannula Oxygen Flow Rate 2 Oxygen Delivery Method Nasal Cannula Oxygen Flow Rate 2 Objective Labs 06/17/22 08:10 06/17/22 08:10 Labs: Laboratory Results - last 24 hr 06/17/22 06/17/22 06/17/22 00:38 00:40 00:40 WBC 19.4 H RBC 3.65 L Hgb 9.9 L Hct 31.3 L MCV 85.7 MCH 27.1 MCHC 31.6 RDW 13.7 Plt Count 635 H Neut % (Auto) Not Reportable Lymph % (Auto) Not Reportable Faulk % (Auto) Not Reportable Eos % (Auto) Not Reportable Baso % (Auto) Not Reportable Neut # (Auto) Lymph # (Auto) Not Reportable Faulk # (Auto) Not Reportable Eos # (Auto) Baso # (Auto) Not Reportable Total Counted 100 Seg Neutrophils % 85.0 H Band Neutrophils % 5.0 Lymphocytes % (Manual) 2.0 L Monocytes % (Manual) 6.0 Eosinophils % (Manual) 2.0 Neutrophils # (Manual) 65501 H RBC Morphology Normal morphology PT INR D-Dimer VBG pH 7.32 L VBG pCO2 56.5 H VBG pO2 30 L VBG HCO3 29 H VBG Total CO2 31 H VBG O2 Saturation 50 L VBG Base Excess 3.0 FiO2 21 Sodium Potassium Chloride Carbon Dioxide BUN Creatinine Estimated GFR BUN/Creatinine Ratio Glucose Hemoglobin A1c Lactate Calcium Magnesium Total Bilirubin GGT AST ALT Alkaline Phosphatase Total Creatine Kinase CK-MB (CK-2) CK-MB (CK-2) Rel Index Troponin I NT-Pro-B Natriuret Pep Total Protein Albumin Globulin Albumin/Globulin Ratio Lipase Procalcitonin Urine RBC Urine WBC Urine Bacteria Micro UA Comment Ketones 0.14 SARS-CoV-2 (PCR) Influenza A (RT-PCR) Influenza B (RT-PCR) RSV (PCR) Group A Strep (PCR) Blood Type Antibody Screen 06/17/22 06/17/22 06/17/22 00:40 00:40 00:40 WBC RBC Hgb Hct MCV MCH MCHC RDW Plt Count Neut % (Auto) Lymph % (Auto) Faulk % (Auto) Eos % (Auto) Baso % (Auto) Neut # (Auto) Lymph # (Auto) Faulk # (Auto) Eos # (Auto) Baso # (Auto) Total Counted Seg Neutrophils % Band Neutrophils % Lymphocytes % (Manual) Monocytes % (Manual) Eosinophils % (Manual) Neutrophils # (Manual) RBC Morphology PT INR D-Dimer VBG pH VBG pCO2 VBG pO2 VBG HCO3 VBG Total CO2 VBG O2 Saturation VBG Base Excess FiO2 Sodium 136 L Potassium 5.5 H Chloride 102 Carbon Dioxide 28 BUN 33 H Creatinine 0.98 Estimated GFR > 60 BUN/Creatinine Ratio 33.7 H Glucose 380 H Hemoglobin A1c Lactate 1.1 Calcium 8.1 L Magnesium 2.1 Total Bilirubin 0.3 GGT AST 208 H ALT 104 H Alkaline Phosphatase 767 H Total Creatine Kinase CK-MB (CK-2) CK-MB (CK-2) Rel Index Troponin I NT-Pro-B Natriuret Pep Total Protein 6.5 Albumin 3.0 L Globulin 3.5 Albumin/Globulin Ratio 0.9 L Lipase 37 Procalcitonin Urine RBC Urine WBC Urine Bacteria Micro UA Comment Ketones SARS-CoV-2 (PCR) Influenza A (RT-PCR) Influenza B (RT-PCR) RSV (PCR) Group A Strep (PCR) Blood Type O Positive Antibody Screen Negative 06/17/22 06/17/22 06/17/22 00:40 00:55 00:58 WBC RBC Hgb Hct MCV MCH MCHC RDW Plt Count Neut % (Auto) Lymph % (Auto) Faulk % (Auto) Eos % (Auto) Baso % (Auto) Neut # (Auto) Lymph # (Auto) Faulk # (Auto) Eos # (Auto) Baso # (Auto) Total Counted Seg Neutrophils % Band Neutrophils % Lymphocytes % (Manual) Monocytes % (Manual) Eosinophils % (Manual) Neutrophils # (Manual) RBC Morphology PT INR D-Dimer 1245 H VBG pH VBG pCO2 VBG pO2 VBG HCO3 VBG Total CO2 VBG O2 Saturation VBG Base Excess FiO2 Sodium Potassium Chloride Carbon Dioxide BUN Creatinine Estimated GFR BUN/Creatinine Ratio Glucose Hemoglobin A1c Lactate Calcium Magnesium Total Bilirubin GGT 221 H AST ALT Alkaline Phosphatase Total Creatine Kinase 47 CK-MB (CK-2) TNP CK-MB (CK-2) Rel Index TNP Troponin I < 0.012 NT-Pro-B Natriuret Pep 4860 H Total Protein Albumin Globulin Albumin/Globulin Ratio Lipase Procalcitonin 0.26 Urine RBC Urine WBC Urine Bacteria Micro UA Comment Ketones SARS-CoV-2 (PCR) Influenza A (RT-PCR) Influenza B (RT-PCR) RSV (PCR) Group A Strep (PCR) Blood Type Antibody Screen 06/17/22 06/17/22 06/17/22 01:15 02:44 08:10 WBC RBC Hgb Hct MCV MCH MCHC RDW Plt Count Neut % (Auto) Lymph % (Auto) Faulk % (Auto) Eos % (Auto) Baso % (Auto) Neut # (Auto) Lymph # (Auto) Faulk # (Auto) Eos # (Auto) Baso # (Auto) Total Counted Seg Neutrophils % Band Neutrophils % Lymphocytes % (Manual) Monocytes % (Manual) Eosinophils % (Manual) Neutrophils # (Manual) RBC Morphology PT INR D-Dimer VBG pH VBG pCO2 VBG pO2 VBG HCO3 VBG Total CO2 VBG O2 Saturation VBG Base Excess FiO2 Sodium Potassium Chloride Carbon Dioxide BUN Creatinine Estimated GFR BUN/Creatinine Ratio Glucose Hemoglobin A1c Lactate 0.9 Calcium Magnesium Total Bilirubin GGT AST ALT Alkaline Phosphatase Total Creatine Kinase CK-MB (CK-2) CK-MB (CK-2) Rel Index Troponin I NT-Pro-B Natriuret Pep Total Protein Albumin Globulin Albumin/Globulin Ratio Lipase Procalcitonin Urine RBC 1-5/hpf Urine WBC 30-100/hpf H Urine Bacteria Many (>30) H Micro UA Comment * Ketones SARS-CoV-2 (PCR) Negative Influenza A (RT-PCR) Flu a negative Influenza B (RT-PCR) Flu b negative RSV (PCR) Negative Group A Strep (PCR) Blood Type Antibody Screen 06/17/22 06/17/22 06/17/22 08:10 08:10 08:10 WBC 17.0 H RBC 3.93 L Hgb 10.5 L Hct 34.0 L MCV 86.7 MCH 26.8 MCHC 31.0 RDW 13.5 Plt Count 650 H Neut % (Auto) 97.0 H Lymph % (Auto) 2.3 L Faulk % (Auto) 0.5 L Eos % (Auto) 0.0 L Baso % (Auto) 0.2 Neut # (Auto) 16945 H Lymph # (Auto) 400 L Faulk # (Auto) 100 Eos # (Auto) 0 Baso # (Auto) 0 Total Counted Seg Neutrophils % Band Neutrophils % Lymphocytes % (Manual) Monocytes % (Manual) Eosinophils % (Manual) Neutrophils # (Manual) RBC Morphology PT 12.4 INR 1.1 D-Dimer VBG pH VBG pCO2 VBG pO2 VBG HCO3 VBG Total CO2 VBG O2 Saturation VBG Base Excess FiO2 Sodium Potassium Chloride Carbon Dioxide BUN Creatinine Estimated GFR BUN/Creatinine Ratio Glucose Hemoglobin A1c Lactate Calcium Magnesium Total Bilirubin GGT AST ALT Alkaline Phosphatase Total Creatine Kinase CK-MB (CK-2) CK-MB (CK-2) Rel Index Troponin I NT-Pro-B Natriuret Pep Total Protein Albumin Globulin Albumin/Globulin Ratio Lipase Procalcitonin 0.25 Urine RBC Urine WBC Urine Bacteria Micro UA Comment Ketones SARS-CoV-2 (PCR) Influenza A (RT-PCR) Influenza B (RT-PCR) RSV (PCR) Group A Strep (PCR) Blood Type Antibody Screen 06/17/22 06/17/22 06/17/22 08:10 08:10 08:10 WBC RBC Hgb Hct MCV MCH MCHC RDW Plt Count Neut % (Auto) Lymph % (Auto) Faulk % (Auto) Eos % (Auto) Baso % (Auto) Neut # (Auto) Lymph # (Auto) Faulk # (Auto) Eos # (Auto) Baso # (Auto) Total Counted Seg Neutrophils % Band Neutrophils % Lymphocytes % (Manual) Monocytes % (Manual) Eosinophils % (Manual) Neutrophils # (Manual) RBC Morphology PT INR D-Dimer VBG pH VBG pCO2 VBG pO2 VBG HCO3 VBG Total CO2 VBG O2 Saturation VBG Base Excess FiO2 Sodium 137 Potassium 5.8 H Chloride 99 Carbon Dioxide 24 BUN 35 H Creatinine 0.94 Estimated GFR > 60 BUN/Creatinine Ratio 37.2 H Glucose 494 H* Hemoglobin A1c 11.2 H Lactate Calcium 8.0 L Magnesium 2.1 Total Bilirubin 0.3 GGT AST 92 H ALT 117 H Alkaline Phosphatase 876 H Total Creatine Kinase CK-MB (CK-2) CK-MB (CK-2) Rel Index Troponin I NT-Pro-B Natriuret Pep Total Protein 7.4 Albumin 3.4 L Globulin 4.0 Albumin/Globulin Ratio 0.9 L Lipase Procalcitonin Urine RBC Urine WBC Urine Bacteria Micro UA Comment Ketones SARS-CoV-2 (PCR) Influenza A (RT-PCR) Influenza B (RT-PCR) RSV (PCR) Group A Strep (PCR) Blood Type Antibody Screen 06/17/22 06/17/22 08:16 10:00 WBC RBC Hgb Hct MCV MCH MCHC RDW Plt Count Neut % (Auto) Lymph % (Auto) Faulk % (Auto) Eos % (Auto) Baso % (Auto) Neut # (Auto) Lymph # (Auto) Faulk # (Auto) Eos # (Auto) Baso # (Auto) Total Counted Seg Neutrophils % Band Neutrophils % Lymphocytes % (Manual) Monocytes % (Manual) Eosinophils % (Manual) Neutrophils # (Manual) RBC Morphology PT INR D-Dimer VBG pH 7.38 VBG pCO2 42.8 L VBG pO2 50 H VBG HCO3 25 VBG Total CO2 26 VBG O2 Saturation 84 H VBG Base Excess 0.0 FiO2 28 Sodium Potassium Chloride Carbon Dioxide BUN Creatinine Estimated GFR BUN/Creatinine Ratio Glucose Hemoglobin A1c Lactate Calcium Magnesium Total Bilirubin GGT AST ALT Alkaline Phosphatase Total Creatine Kinase CK-MB (CK-2) CK-MB (CK-2) Rel Index Troponin I NT-Pro-B Natriuret Pep Total Protein Albumin Globulin Albumin/Globulin Ratio Lipase Procalcitonin Urine RBC Urine WBC Urine Bacteria Micro UA Comment Ketones SARS-CoV-2 (PCR) Influenza A (RT-PCR) Influenza B (RT-PCR) RSV (PCR) Group A Strep (PCR) Cancelled Blood Type Antibody Screen Assessment & Plan Assessment & Plan narrative: patient seen on camera chart/labs/imaging reviewed 32 year old female with PMHx of DM, multiple admits for DKA admitted to ICU for acute resp failure pulmonary edema pleural effusion UTI/pyelonephritis currently afebrile, HD stable, does not appear in any distress ABG pH 7.32, pCO2 56.5, PO2 30, bicarb 29 glucose 350 k 5.5 ast 108, ALT 104, alk-phos 767, H&H 9.931.3, platelets 635. lactate 1.1, BNP 4448 vial panel -ve cxr b/l infiltrates CTA negative for PE, pulmonary edema, effusion, see report for details U/A +ve suggest -neurochecks/seizure precautions -avoid opiods -keep sat above 92% can use bipap prn -continue diuresis -consider thoracentesis if no further improvement, if first effusion, suggest diagnostic tap -serial ekg/trop -check echo, prelim results with reduced EF suggest cardio eval -repeat bmp, if K elevated can give cocktail -iqbal cxs -abx -keep glucose 140-180s, does not appear in dka, can use insulin drip if needed -monitor ins/outs -replace lytes prn -gi/dvt ppx -please call eICU if condition changes -will d/w Dr. Mancuso total ccm time 45 mins Time Spent With Patient Critical Care time: I spent a total of [] minutes of critical care time on this patient's care today; this time is exclusive of procedural time.
--- NOTE | 2022-06-17 12:26 | DI.RAD.S_ITS ---
PROCEDURE: XR CHEST 1V INDICATIONS: picc line placement TECHNIQUE: One view of the chest was acquired. COMPARISON: [facility], , XR CHEST 1V, 06/17/2022, 1:13. FINDINGS: Surgical changes and devices: Right upper extremity PICC line tip in the SVC. Lungs and pleura: Diffuse interstitial pattern with underlying pulmonary infiltrates Mediastinum: Mediastinal contours appear normal. Heart size is normal. Bones and chest wall: No suspicious bony lesions. Overlying soft tissues appear unremarkable. IMPRESSION: Diffuse interstitial pulmonary infiltrates, similar prior exam. Right upper extremity PICC line in good position Approved by: Waylon Plaza M.D. on 06/17/2022 at 12:51
--- NOTE | 2022-06-17 13:06 | PT-IP ANOTE ---
Pt states she has to wear a boot on her right foot in order to weightbear and the boot is at home. She can have her mom bring it in [place]. Pt lives at home with her mom in a single level home with a w/c ramp to enter. She states her baseline mobility is to use a transport chair and she can sort of hop a short distances with her walker to get into the bathroom. She states she was going to outpatient PT but hurt her R knee and is awaiting an MRI of that. Pt states she had surgery on her R foot two years ago and then a month ago a bunch of scar tissue broke loose and she has been unable to weightbear on the R foot since then unless she has her boot. Will hold PT for today so that patient can get access to her boot.
[2022-06-17 13:18] LABS: MRSA (Nasal) PCR Not Detected (Not Detect)
[2022-06-17] MEDS: ACETAMINOPHEN 325 MG TABLET 975 MG PO ×2 (14:14→22:09)
[2022-06-17] MEDS: SENNOSIDES 8.6 MG TABLET PO (15:22)
--- NOTE | 2022-06-17 16:08 | PM.EVENT ---
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 Chest x-ray revealed advanced interstitial infiltrates. Atypical infiltrate such as COVID suspected although could also be pulmonary edema. CT pulmonary angiogram was negative for PE. There was moderately large right pleural effusion and [id number] left pleural effusion. Pulmonary findings were felt to represent pulmonary edema with possible superimposed pneumonia. Abdominal pelvic CT revealed bilateral pleural effusions, pulmonary edema and possible superimposed pneumonia. Hepatomegaly with prominent periportal edema was noted. Mild ascites. Celiac and retroperitoneal adenopathy. Diffuse bladder wall thickening possibly indicating cystitis and a possible ileus pattern. Limited abdominal ultrasound revealed unremarkable right upper quadrant. Echocardiogram done this morning reveals mild improvement with EF in the 45-50% range. She did undergo PICC line placement this afternoon. It is well positioned. No significant change in the diffuse interstitial pulmonary infiltrates. In the emergency department, Patient initially received 1 L of IV fluids. After some of her studies came back (transaminitis, elevated BNP at 4860, as well as imaging studies) it became clear she needed diuresis. She received 40 mg of IV Lasix with 300 cc of urine produced. She received another 20 mg around 9:00 a.m. this morning. Since then she is put out approximately 1100 cc of urine. Patient reports she is feeling about the same overall. She does feel she has abdominal distention. She had not noted any significant lower extremity edema. No fevers or chills. No cough or sputum production. She has had some nausea and vomiting. Last occurred this morning. She notes she has been essentially wheelchair-bound since October of 2021. She notes she had been getting physical therapy and doing well but her physical therapist 1 on 2 weeks vacation and she received no additional therapy. She states since that time she has been very weak and painful and has had difficulty with her mobility. Exam: GEN: Chronically ill-appearing adult female Alert and oriented x 3, NAD HEENT:[place], Face symmetric CHEST: Respiratory excursions symmetric, bibasilar crackles, coarse but otherwise clear CV: RRR, no M/R/G ABD: Slightly firm, mildly distended , BT present in all 4 quadrants, no organomegaly or masses EXTR: warm, well perfused, no C/C, 1+ lower extremity edema SKIN: warm and dry, no rash NEURO: Alert and oriented x 3, nonfocal Assessment and plan: 1. Acute hypoxic respiratory failure Likely secondary to combination of acute CHF exacerbation and potentially underlying pneumonia. She does not have any acute ill symptoms. Viral respiratory studies were negative. She does have an elevated white blood cell count which could be indicative of occult pneumonia or may be exclusively secondary to urinary tract infection. Will give an additional 40 mg of IV Lasix now as she is essentially had equally matched intake and output thus far. Potassium is 5.8, blood pressure is 160 systolic so she should tolerate additional diuresis. She may require medication management for her cardiomyopathy to help improve her overall cardiac function. 2. Acute on chronic systolic CHF Previous ejection fraction was 40-45%. She also had known diastolic dysfunction. Her EF has improved slightly since her prior echo. Diastolic function could not be determined. As noted, will continue diuresis. Outpatient medications have not yet been reconciled, but very likely she should be placed on beta brijesh, MARA inhibitor, and diuresis. 3. Transaminitis Likely due to congestive hepatopathy. Imaging did reveal some mild ascites and periportal edema. No abnormality on ultrasound. Will follow periodically. Her alkaline phosphatase is significantly elevated at 876. She has no evidence of biliary obstruction. She has had prior cholecystectomy. Will continue to monitor. 4. Urinary tract infection UA revealed 30-100 white blood cells, many bacteria. CT imaging consistent with cystitis. White blood cell count was [address]752. We will continue empiric antibiotics. Await culture results. She does have a history of ureteral stones. None were noted on abdominal pelvic CT. 5. Type 1 diabetes, poorly controlled Continue Lantus 20 units in the morning, 10 in the evening. Continue fingersticks and sliding scale. Controlled carb diet. A1c is 11.2% which is worse compared to her prior of 8.8% in January. No evidence of DKA. 6. Possible ileus She is having some nausea and vomiting this morning. Currently she is asymptomatic. Will monitor for improvement. 7. Generalized weakness PT OT consults requested. Appreciate tele day care center director consult.
--- NOTE | 2022-06-17 19:37 | PM.PN.EICU ---
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 Blood glucose levels have been elevated but slowly trending down. Current Medications Current Medications Medications: Home Medications glucose 4 gram chewable tablet 4 gram PO Q15M PRN hypoglycemia #30 tabs 12/12/18 [Rx Confirmed 06/17/22] glucagon (human recombinant) 1 mg solution for injection (Glucagon Emergency Kit) 1 mg SUBCUT DIRECTED 02/16/19 [History Confirmed 06/17/22] diphenhydramine HCl 50 mg capsule 50 mg PO BEDTIME PRN Sleep 09/29/20 [History Confirmed 06/17/22] ondansetron 4 mg disintegrating tablet 4 mg PO Q8H PRN nausea and vomiting #10 tabs 11/08/21 [Rx Confirmed 06/17/22] insulin aspart U-100 100 unit/mL (3 mL) subcutaneous pen (Novolog FlexPen U-100 Insulin aspart) See Rx Instructions .Route .COMPLEX 11/13/21 [History Confirmed 11/29/21] insulin degludec 200 unit/mL (3 mL) subcutaneous pen (Tresiba FlexTouch U-200 insulin) 13 ea SUBCUT BID 11/13/21 [History Confirmed 11/29/21] methocarbamol 500 mg tablet 1 tab PO TID 11/13/21 [History Confirmed 06/17/22] pantoprazole 40 mg tablet,delayed release 40 mg PO BEDTIME 11/13/21 [History Confirmed 06/17/22] sennosides 8.6 mg tablet (senna) 8.6 mg PO DAILY 11/13/21 [History Confirmed 06/17/22] acetaminophen 325 mg tablet 975 mg PO Q8H #30 tabs 11/18/21 [Rx Confirmed 06/17/22] naloxone 4 mg/actuation nasal spray (Narcan) 1 spray intranasal Q2M #2 ea 11/18/21 [Rx Confirmed 11/29/21] tramadol 50 mg tablet 50 mg PO Q4H PRN Pain, Moderate (4-6) #15 tabs 11/18/21 [Rx Confirmed 06/17/22] ondansetron 4 mg disintegrating tablet 4 mg PO Q8H PRN nausea and vomiting #15 tabs 03/18/22 [Rx Confirmed 06/17/22] valacyclovir 1 gram tablet (Valtrex) 1,000 mg PO TID #30 tabs 03/18/22 [Rx] Visit Medications (administered) Generic Name Dose Route Start Last Admin Trade Name Freq PRN Reason Stop Dose Admin Acetaminophen 975 mg 06/17/22 14:00 06/17/22 14:14 Acetaminophen 325 Mg Tablet PO 975 mg Q8H BLAISE Administration Furosemide 20 mg 06/17/22 09:00 06/17/22 08:51 Furosemide 40 Mg/4 Ml Vial IV 20 mg DAILY BLAISE Administration Ceftriaxone Sodium 1,000 mg/ 100 mls @ 200 mls/hr 06/17/22 06:15 06/17/22 07:40 Sodium Chloride IV 06/22/22 06:14 Infused Q24H BLAISE Infusion Azithromycin 500 mg/ Dextrose 250 mls @ 250 mls/hr 06/17/22 06:15 06/17/22 06:39 IV 06/20/22 06:14 Not Given Q24H [facility] Insulin Glargine 20 unit 06/17/22 09:00 06/17/22 08:39 Insulin Glargine 100 Unit/Ml 3ml Pen SUBCUT 20 unit DAILY [facility] Administration Insulin Human Lispro 0 unit 06/17/22 07:45 06/17/22 16:56 Insulin Lispro 100 Unit/Ml 3ml Vial SUBCUT 7 unit ACHS [facility] Administration Protocol Methocarbamol 500 mg 06/17/22 07:46 06/17/22 10:05 Methocarbamol 500 Mg Tablet PO 500 mg TID PRN Administration Muscle Spasm Sennosides 8.6 mg 06/17/22 15:00 06/17/22 15:22 Sennosides 8.6 Mg Tablet PO 8.6 mg DAILY [facility] Administration Tramadol HCl 50 mg 06/17/22 07:46 06/17/22 13:16 Tramadol 50 Mg Tablet PO 50 mg Q4H PRN Administration Pain, Moderate (4-6) Objective Labs 06/17/22 08:10 06/17/22 08:10 Labs: Laboratory Results - last 24 hr 06/17/22 06/17/22 06/17/22 00:38 00:40 00:40 WBC 19.4 H RBC 3.65 L Hgb 9.9 L Hct 31.3 L MCV 85.7 MCH 27.1 MCHC 31.6 RDW 13.7 Plt Count 635 H Neut % (Auto) Not Reportable Lymph % (Auto) Not Reportable [place] % (Auto) Not Reportable Eos % (Auto) Not Reportable Baso % (Auto) Not Reportable Neut # (Auto) Lymph # (Auto) Not Reportable [place] # (Auto) Not Reportable Eos # (Auto) Baso # (Auto) Not Reportable Total Counted 100 Seg Neutrophils % 85.0 H Band Neutrophils % 5.0 Lymphocytes % (Manual) 2.0 L Monocytes % (Manual) 6.0 Eosinophils % (Manual) 2.0 Neutrophils # (Manual) 51327 H RBC Morphology Normal morphology PT INR D-Dimer VBG pH 7.32 L VBG pCO2 56.5 H VBG pO2 30 L VBG HCO3 29 H VBG Total CO2 31 H VBG O2 Saturation 50 L VBG Base Excess 3.0 FiO2 21 Sodium Potassium Chloride Carbon Dioxide BUN Creatinine Estimated GFR BUN/Creatinine Ratio Glucose Hemoglobin A1c Lactate Calcium Magnesium Total Bilirubin GGT AST ALT Alkaline Phosphatase Total Creatine Kinase CK-MB (CK-2) CK-MB (CK-2) Rel Index Troponin I NT-Pro-B Natriuret Pep Total Protein Albumin Globulin Albumin/Globulin Ratio Lipase Procalcitonin Urine RBC Urine WBC Urine Bacteria Micro UA Comment Nasal Screen MRSA (PCR) Ketones 0.14 SARS-CoV-2 (PCR) Influenza A (RT-PCR) Influenza B (RT-PCR) RSV (PCR) Group A Strep (PCR) Blood Type Antibody Screen 06/17/22 06/17/22 06/17/22 00:40 00:40 00:40 WBC RBC Hgb Hct MCV MCH MCHC RDW Plt Count Neut % (Auto) Lymph % (Auto) [place] % (Auto) Eos % (Auto) Baso % (Auto) Neut # (Auto) Lymph # (Auto) [place] # (Auto) Eos # (Auto) Baso # (Auto) Total Counted Seg Neutrophils % Band Neutrophils % Lymphocytes % (Manual) Monocytes % (Manual) Eosinophils % (Manual) Neutrophils # (Manual) RBC Morphology PT INR D-Dimer VBG pH VBG pCO2 VBG pO2 VBG HCO3 VBG Total CO2 VBG O2 Saturation VBG Base Excess FiO2 Sodium 136 L Potassium 5.5 H Chloride 102 Carbon Dioxide 28 BUN 33 H Creatinine 0.98 Estimated GFR > 60 BUN/Creatinine Ratio 33.7 H Glucose 380 H Hemoglobin A1c Lactate 1.1 Calcium 8.1 L Magnesium 2.1 Total Bilirubin 0.3 GGT AST 208 H ALT 104 H Alkaline Phosphatase 767 H Total Creatine Kinase CK-MB (CK-2) CK-MB (CK-2) Rel Index Troponin I NT-Pro-B Natriuret Pep Total Protein 6.5 Albumin 3.0 L Globulin 3.5 Albumin/Globulin Ratio 0.9 L Lipase 37 Procalcitonin Urine RBC Urine WBC Urine Bacteria Micro UA Comment Nasal Screen MRSA (PCR) Ketones SARS-CoV-2 (PCR) Influenza A (RT-PCR) Influenza B (RT-PCR) RSV (PCR) Group A Strep (PCR) Blood Type O Positive Antibody Screen Negative 06/17/22 06/17/22 06/17/22 00:40 00:55 00:58 WBC RBC Hgb Hct MCV MCH MCHC RDW Plt Count Neut % (Auto) Lymph % (Auto) [place] % (Auto) Eos % (Auto) Baso % (Auto) Neut # (Auto) Lymph # (Auto) [place] # (Auto) Eos # (Auto) Baso # (Auto) Total Counted Seg Neutrophils % Band Neutrophils % Lymphocytes % (Manual) Monocytes % (Manual) Eosinophils % (Manual) Neutrophils # (Manual) RBC Morphology PT INR D-Dimer 1245 H VBG pH VBG pCO2 VBG pO2 VBG HCO3 VBG Total CO2 VBG O2 Saturation VBG Base Excess FiO2 Sodium Potassium Chloride Carbon Dioxide BUN Creatinine Estimated GFR BUN/Creatinine Ratio Glucose Hemoglobin A1c Lactate Calcium Magnesium Total Bilirubin GGT 221 H AST ALT Alkaline Phosphatase Total Creatine Kinase 47 CK-MB (CK-2) TNP CK-MB (CK-2) Rel Index TNP Troponin I < 0.012 NT-Pro-B Natriuret Pep 4860 H Total Protein Albumin Globulin Albumin/Globulin Ratio Lipase Procalcitonin 0.26 Urine RBC Urine WBC Urine Bacteria Micro UA Comment Nasal Screen MRSA (PCR) Ketones SARS-CoV-2 (PCR) Influenza A (RT-PCR) Influenza B (RT-PCR) RSV (PCR) Group A Strep (PCR) Blood Type Antibody Screen 06/17/22 06/17/22 06/17/22 01:15 02:44 08:10 WBC RBC Hgb Hct MCV MCH MCHC RDW Plt Count Neut % (Auto) Lymph % (Auto) [place] % (Auto) Eos % (Auto) Baso % (Auto) Neut # (Auto) Lymph # (Auto) [place] # (Auto) Eos # (Auto) Baso # (Auto) Total Counted Seg Neutrophils % Band Neutrophils % Lymphocytes % (Manual) Monocytes % (Manual) Eosinophils % (Manual) Neutrophils # (Manual) RBC Morphology PT INR D-Dimer VBG pH VBG pCO2 VBG pO2 VBG HCO3 VBG Total CO2 VBG O2 Saturation VBG Base Excess FiO2 Sodium Potassium Chloride Carbon Dioxide BUN Creatinine Estimated GFR BUN/Creatinine Ratio Glucose Hemoglobin A1c Lactate 0.9 Calcium Magnesium Total Bilirubin GGT AST ALT Alkaline Phosphatase Total Creatine Kinase CK-MB (CK-2) CK-MB (CK-2) Rel Index Troponin I NT-Pro-B Natriuret Pep Total Protein Albumin Globulin Albumin/Globulin Ratio Lipase Procalcitonin Urine RBC 1-5/hpf Urine WBC 30-100/hpf H Urine Bacteria Many (>30) H Micro UA Comment * Nasal Screen MRSA (PCR) Ketones SARS-CoV-2 (PCR) Negative Influenza A (RT-PCR) Flu a negative Influenza B (RT-PCR) Flu b negative RSV (PCR) Negative Group A Strep (PCR) Blood Type Antibody Screen 06/17/22 06/17/22 06/17/22 08:10 08:10 08:10 WBC 17.0 H RBC 3.93 L Hgb 10.5 L Hct 34.0 L MCV 86.7 MCH 26.8 MCHC 31.0 RDW 13.5 Plt Count 650 H Neut % (Auto) 97.0 H Lymph % (Auto) 2.3 L [place] % (Auto) 0.5 L Eos % (Auto) 0.0 L Baso % (Auto) 0.2 Neut # (Auto) 01301 H Lymph # (Auto) 400 L [place] # (Auto) 100 Eos # (Auto) 0 Baso # (Auto) 0 Total Counted Seg Neutrophils % Band Neutrophils % Lymphocytes % (Manual) Monocytes % (Manual) Eosinophils % (Manual) Neutrophils # (Manual) RBC Morphology PT 12.4 INR 1.1 D-Dimer VBG pH VBG pCO2 VBG pO2 VBG HCO3 VBG Total CO2 VBG O2 Saturation VBG Base Excess FiO2 Sodium Potassium Chloride Carbon Dioxide BUN Creatinine Estimated GFR BUN/Creatinine Ratio Glucose Hemoglobin A1c Lactate Calcium Magnesium Total Bilirubin GGT AST ALT Alkaline Phosphatase Total Creatine Kinase CK-MB (CK-2) CK-MB (CK-2) Rel Index Troponin I NT-Pro-B Natriuret Pep Total Protein Albumin Globulin Albumin/Globulin Ratio Lipase Procalcitonin 0.25 Urine RBC Urine WBC Urine Bacteria Micro UA Comment Nasal Screen MRSA (PCR) Ketones SARS-CoV-2 (PCR) Influenza A (RT-PCR) Influenza B (RT-PCR) RSV (PCR) Group A Strep (PCR) Blood Type Antibody Screen 06/17/22 06/17/22 06/17/22 08:10 08:10 08:10 WBC RBC Hgb Hct MCV MCH MCHC RDW Plt Count Neut % (Auto) Lymph % (Auto) [place] % (Auto) Eos % (Auto) Baso % (Auto) Neut # (Auto) Lymph # (Auto) [place] # (Auto) Eos # (Auto) Baso # (Auto) Total Counted Seg Neutrophils % Band Neutrophils % Lymphocytes % (Manual) Monocytes % (Manual) Eosinophils % (Manual) Neutrophils # (Manual) RBC Morphology PT INR D-Dimer VBG pH VBG pCO2 VBG pO2 VBG HCO3 VBG Total CO2 VBG O2 Saturation VBG Base Excess FiO2 Sodium 137 Potassium 5.8 H Chloride 99 Carbon Dioxide 24 BUN 35 H Creatinine 0.94 Estimated GFR > 60 BUN/Creatinine Ratio 37.2 H Glucose 494 H* Hemoglobin A1c 11.2 H Lactate Calcium 8.0 L Magnesium 2.1 Total Bilirubin 0.3 GGT AST 92 H ALT 117 H Alkaline Phosphatase 876 H Total Creatine Kinase CK-MB (CK-2) CK-MB (CK-2) Rel Index Troponin I NT-Pro-B Natriuret Pep Total Protein 7.4 Albumin 3.4 L Globulin 4.0 Albumin/Globulin Ratio 0.9 L Lipase Procalcitonin Urine RBC Urine WBC Urine Bacteria Micro UA Comment Nasal Screen MRSA (PCR) Ketones SARS-CoV-2 (PCR) Influenza A (RT-PCR) Influenza B (RT-PCR) RSV (PCR) Group A Strep (PCR) Blood Type Antibody Screen 06/17/22 06/17/22 06/17/22 08:16 10:00 12:00 WBC RBC Hgb Hct MCV MCH MCHC RDW Plt Count Neut % (Auto) Lymph % (Auto) [place] % (Auto) Eos % (Auto) Baso % (Auto) Neut # (Auto) Lymph # (Auto) [place] # (Auto) Eos # (Auto) Baso # (Auto) Total Counted Seg Neutrophils % Band Neutrophils % Lymphocytes % (Manual) Monocytes % (Manual) Eosinophils % (Manual) Neutrophils # (Manual) RBC Morphology PT INR D-Dimer VBG pH 7.38 VBG pCO2 42.8 L VBG pO2 50 H VBG HCO3 25 VBG Total CO2 26 VBG O2 Saturation 84 H VBG Base Excess 0.0 FiO2 28 Sodium Potassium Chloride Carbon Dioxide BUN Creatinine Estimated GFR BUN/Creatinine Ratio Glucose Hemoglobin A1c Lactate Calcium Magnesium Total Bilirubin GGT AST ALT Alkaline Phosphatase Total Creatine Kinase CK-MB (CK-2) CK-MB (CK-2) Rel Index Troponin I NT-Pro-B Natriuret Pep Total Protein Albumin Globulin Albumin/Globulin Ratio Lipase Procalcitonin Urine RBC Urine WBC Urine Bacteria Micro UA Comment Nasal Screen MRSA (PCR) Not detected Ketones SARS-CoV-2 (PCR) Influenza A (RT-PCR) Influenza B (RT-PCR) RSV (PCR) Group A Strep (PCR) Cancelled Blood Type Antibody Screen Exam Vital Signs (past 8 hours): - 06/17/22 12:00 06/17/22 11:43 06/17/22 11:55 Temperature Pulse Rate 100 H Respiratory Rate 16 Blood Pressure 154/97 H Pulse Oximetry 91 Oxygen Delivery Method Nasal Cannula 06/17/22 12:00 06/17/22 12:06 06/17/22 12:30 Temperature Pulse Rate 101 H Respiratory Rate 14 Blood Pressure 163/105 H 162/91 H Pulse Oximetry 93 Oxygen Delivery Method 06/17/22 12:30 06/17/22 12:37 06/17/22 12:37 Temperature 98.7 F Pulse Rate 99 H 100 H Respiratory Rate 13 16 Blood Pressure 158/91 H Pulse Oximetry 93 93 Oxygen Delivery Method 06/17/22 13:00 06/17/22 13:00 06/17/22 13:30 Temperature Pulse Rate 102 H Respiratory Rate 20 Blood Pressure 159/96 H 161/94 H Pulse Oximetry 93 Oxygen Delivery Method 06/17/22 13:30 06/17/22 13:47 06/17/22 13:47 Temperature Pulse Rate 101 H 100 H Respiratory Rate 17 18 Blood Pressure 147/92 H Pulse Oximetry 92 95 Oxygen Delivery Method 06/17/22 14:00 06/17/22 14:00 06/17/22 14:30 Temperature Pulse Rate 100 H Respiratory Rate 16 Blood Pressure 162/95 H 159/95 H Pulse Oximetry 94 Oxygen Delivery Method 06/17/22 14:30 06/17/22 15:00 06/17/22 15:00 Temperature Pulse Rate 97 H 99 H Respiratory Rate 14 14 Blood Pressure 159/98 H Pulse Oximetry 94 94 Oxygen Delivery Method 06/17/22 15:30 06/17/22 15:30 06/17/22 16:00 Temperature Pulse Rate 98 H Respiratory Rate 16 Blood Pressure 153/91 H 150/86 H Pulse Oximetry 95 Oxygen Delivery Method 06/17/22 16:00 06/17/22 16:30 06/17/22 16:30 Temperature Pulse Rate 97 H 98 H Respiratory Rate 17 14 Blood Pressure 152/90 H Pulse Oximetry 94 94 Oxygen Delivery Method 06/17/22 17:00 06/17/22 17:00 06/17/22 17:40 Temperature Pulse Rate 103 H Respiratory Rate 17 Blood Pressure 151/78 H Pulse Oximetry 90 L Oxygen Delivery Method Nasal Cannula 06/17/22 17:30 06/17/22 17:30 06/17/22 18:00 Temperature Pulse Rate 101 H Respiratory Rate 30 H Blood Pressure 141/96 H 141/90 H Pulse Oximetry 90 L Oxygen Delivery Method 06/17/22 18:00 Temperature Pulse Rate 98 H Respiratory Rate 25 H Blood Pressure Pulse Oximetry 93 Oxygen Delivery Method Oxygen Delivery Method Nasal Cannula Oxygen Flow Rate 2 Narrative Exam Narrative: Patient is awake, alert and conversant. No increased work of breathing. Satting in mid-high 90s on 3L NC. Quality TeleICU VTE Deep Vein Thrombosis/Pulmonary Embolism Present on Admission: No Assessment & Plan Assessment & Plan narrative: 32F admitted with acute hypoxemic respiratory failure likely due acute HF exacerbation with pulmonary edema, pleural effusions and possibly superimposed pneumonia. Elevated LFTs, suspected congestive hepatopathy. UTI/Pyelo. N: PRN pain control C: Diuresis as below. P: Supplemental O2 as needed for goal sat >92%. Would repeat CXR after diuresis. May need thoracentesis if persistent symptomatic and large pleural effusions despite diuresis. GI: PPI. Bowel regimen. R: Continue Lasix, targeting net -1L. Monitor lytes, replete as needed H/O: Monitor H/H. Given no e/o acute bleed, would start medical VTE PPx and SCDs. ID: Ceftriaxone, Azithromycin. Follow up cultures. E: Continue insulin regimen, targeting BG levels <180. Suspected elevated BG today due to Methylpred. If still elevated overnight, would start insulin drip for closer control Time Spent With Patient Critical Care time: I spent a total of [] minutes of critical care time on this patient's care today; this time is exclusive of procedural time.
[2022-06-17] MEDS: PANTOPRAZOLE DR 40 MG TABLET PO (21:01)
[2022-06-17] MEDS: ATROPINE 1% OPHTH 1 DROPS EYE-LEFT (21:01)
[2022-06-17] MEDS: INSULIN GLARGINE 100 UNIT/ML 3ML PEN 10 UNIT SUBCUT (21:02)
[2022-06-17] MEDS: SIMBRINZA 1 EACH EYE-BOTH (21:02)
[2022-06-17] MEDS: LATANOPROST 0.005% OPHTH 2.5 ML 1 DROPS EYE-BOTH (21:06)
[2022-06-17] MEDS: TIMOLOL 0.5% OPHTH 1 DROPS EYE-BOTH (21:06)
[2022-06-18] VITALS (36 sets, daily range): BP systolic 122–181; BP diastolic 75–104; PULSE 81–101; RESP 9–32; TEMP 36.4–36.9; O2SAT 88–96
[2022-06-18] MEDS: cefTRIAXone 1,000 MG in SODIUM CHLORIDE 0.9% 100 ML 200 MG IV (07:00)
[2022-06-18] MEDS: AZITHROMYCIN 500 MG in SODIUM CHLORIDE 0.9% 250 ML 250 MG IV (07:47)
[2022-06-18 07:50] LABS: Alanine Aminotransferase 61 IU/L (<35); Albumin Globulin Ratio 0.9 (1.0-2.8); Alkaline Phosphatase 564 U/L (38-126); Aspartate Aminotransferase 30 IU/L (14-36); BUN Creatinine Ratio 57.1 (6-22); Bilirubin Total 0.2 mg/dL (0.2-1.3); Blood Urea Nitrogen 36 mg/dL (7-17); Carbon Dioxide 30 mmol/L (22-32); Chloride 100 mmol/L (98-107); Estimated Glomerular Filt Rate > 60 mL/min (>60); Globulin 3.4 g/dL (1.7-4.1); Glucose 255 mg/dL (70-100); HEMOLYSIS 31 (0-50); Magnesium 2.1 mg/dL (1.6-2.3); Potassium 4.5 mmol/L (3.4-5.1); Sodium 135 mmol/L (137-145); Total Protein 6.4 g/dL (6.3-8.2)
[2022-06-18 07:56] LABS: Add Manual Diff / Slide Review NO; Basophils Absolute Auto 100 /uL (0-100); Basophils Percent Auto 0.9 % (0-2); Eosinophils Absolute Auto 0 /uL (0-450); Eosinophils Percent Auto 0.2 % (2-4); Hematocrit 30.5 % (36-46); Hemoglobin 9.8 g/dL (12.0-16.0); Lymphocytes Absolute Auto 1700 /uL (1100-4500); Lymphocytes Percent Auto 11.7 % (25-40); Mean Corpuscular Hemoglobin 27.1 PG (26-34); Mean Corpuscular Volume 84.9 fL (80-100); Monocytes Absolute Auto 1100 /uL (0-900); Monocytes Percent Auto 7.5 % (3-14); Neutrophils Absolute Auto 11800 /uL (1500-7000); Neutrophils Percent Auto 79.7 % (50-75); Platelet Count 616 X10^3/uL (150-400); Red Blood Cell Count 3.59 X10^6/uL (4.0-5.2); Red Cell Distribution Width 13.8 % (11.6-14.8); White Blood Cell Count 14.8 X10^3/uL (4.5-11.0)
[2022-06-18] MEDS: INSULIN LISPRO 100 UNIT/ML 3ML VIAL SUBCUT ×3 (08:58→17:07)
[2022-06-18] MEDS: INSULIN GLARGINE 100 UNIT/ML 3ML PEN 20 UNIT SUBCUT (08:58)
[2022-06-18] MEDS: SIMBRINZA 1 EACH EYE-BOTH ×2 (09:00→20:45)
[2022-06-18] MEDS: TIMOLOL 0.5% OPHTH 1 DROPS EYE-BOTH ×2 (09:03→20:41)
[2022-06-18] MEDS: FUROSEMIDE 40 MG/4 ML VIAL 20 MG IV (09:26)
[2022-06-18] MEDS: SENNOSIDES 8.6 MG TABLET PO (09:26)
--- NOTE | 2022-06-18 10:01 | PM.PN.EICU ---
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 Blood glucose levels have been elevated but slowly trending down. Current Medications Current Medications Medications: Home Medications glucose 4 gram chewable tablet 4 gram PO Q15M PRN hypoglycemia #30 tabs 12/12/18 [Rx Confirmed 06/17/22] glucagon (human recombinant) 1 mg solution for injection (Glucagon Emergency Kit) 1 mg SUBCUT DIRECTED 02/16/19 [History Confirmed 06/17/22] diphenhydramine HCl 50 mg capsule 50 mg PO BEDTIME PRN Sleep 09/29/20 [History Confirmed 06/17/22] ondansetron 4 mg disintegrating tablet 4 mg PO Q8H PRN nausea and vomiting #10 tabs 11/08/21 [Rx Confirmed 06/17/22] insulin aspart U-100 100 unit/mL (3 mL) subcutaneous pen (Novolog FlexPen U-100 Insulin aspart) See Rx Instructions .Route .COMPLEX 11/13/21 [History Confirmed 11/29/21] insulin degludec 200 unit/mL (3 mL) subcutaneous pen (Tresiba FlexTouch U-200 insulin) 13 ea SUBCUT BID 11/13/21 [History Confirmed 11/29/21] methocarbamol 500 mg tablet 1 tab PO TID 11/13/21 [History Confirmed 06/17/22] pantoprazole 40 mg tablet,delayed release 40 mg PO BEDTIME 11/13/21 [History Confirmed 06/17/22] sennosides 8.6 mg tablet (senna) 8.6 mg PO DAILY 11/13/21 [History Confirmed 06/17/22] acetaminophen 325 mg tablet 975 mg PO Q8H #30 tabs 11/18/21 [Rx Confirmed 06/17/22] naloxone 4 mg/actuation nasal spray (Narcan) 1 spray intranasal Q2M #2 ea 11/18/21 [Rx Confirmed 11/29/21] tramadol 50 mg tablet 50 mg PO Q4H PRN Pain, Moderate (4-6) #15 tabs 11/18/21 [Rx Confirmed 06/17/22] ondansetron 4 mg disintegrating tablet 4 mg PO Q8H PRN nausea and vomiting #15 tabs 03/18/22 [Rx Confirmed 06/17/22] valacyclovir 1 gram tablet (Valtrex) 1,000 mg PO TID #30 tabs 03/18/22 [Rx] Visit Medications (administered) Generic Name Dose Route Start Last Admin Trade Name Arvindq PRN Reason Stop Dose Admin Acetaminophen 975 mg 06/17/22 14:00 06/18/22 08:23 Acetaminophen 325 Mg Tablet PO Not Given Q8H BLAISE Atropine Sulfate 1 drops 06/17/22 21:00 06/17/22 21:01 Atropine 1% Ophth EYE-LEFT 1 drops BEDTIME BLAISE Administration Furosemide 20 mg 06/17/22 09:00 06/18/22 09:26 Furosemide 40 Mg/4 Ml Vial IV 20 mg DAILY BLAISE Administration Ceftriaxone Sodium 1,000 mg/ 100 mls @ 200 mls/hr 06/17/22 06:15 06/18/22 07:00 Sodium Chloride IV 06/22/22 06:14 200 mls/hr Q24H BLAISE Administration Azithromycin 500 mg/ Sodium 250 mls @ 250 mls/hr 06/18/22 08:00 06/18/22 07:47 Chloride IV 250 mls/hr Q24H BLAISE Administration Insulin Glargine 20 unit 06/17/22 09:00 06/18/22 08:58 Insulin Glargine 100 Unit/Ml 3ml Pen SUBCUT 20 unit DAILY BLAISE Administration Insulin Glargine 10 unit 06/17/22 21:00 06/17/22 21:02 Insulin Glargine 100 Unit/Ml 3ml Pen SUBCUT 10 unit BEDTIME BLAISE Administration Insulin Human Lispro 0 unit 06/17/22 07:45 06/18/22 08:58 Insulin Lispro 100 Unit/Ml 3ml Vial SUBCUT 3 unit ACHS BLAISE Administration Protocol Latanoprost 1 drops 06/17/22 21:00 06/17/22 21:06 Latanoprost 0.005% Ophth 2.5 Ml EYE-BOTH 1 drops BEDTIME BLAISE Administration Methocarbamol 500 mg 06/17/22 07:46 06/17/22 10:05 Methocarbamol 500 Mg Tablet PO 500 mg TID PRN Administration Muscle Spasm Nf - Simbrinza 1 1 drop 06/17/22 21:00 06/17/22 21:02 Drop EYE-BOTH 1 drop BID BLAISE Administration Pantoprazole Sodium 40 mg 06/17/22 21:00 06/17/22 21:[address] 40 Mg Tablet PO 40 mg BEDTIME BLAISE Administration Sennosides 8.6 mg 06/17/22 15:00 06/18/22 09:26 Sennosides 8.6 Mg Tablet PO 8.6 mg DAILY BLAISE Administration Timolol Maleate 1 drops 06/17/22 21:00 06/18/22 09:03 Timolol 0.5% Ophth EYE-BOTH 1 1000units BID BLAISE Administration Tramadol HCl 50 mg 06/17/22 07:46 06/17/22 13:16 Tramadol 50 Mg Tablet PO 50 mg Q4H PRN Administration Pain, Moderate (4-6) Objective Labs 06/18/22 07:10 06/18/22 07:10 Labs: Laboratory Results - last 24 hr 06/17/22 06/17/22 06/18/22 10:00 12:00 07:10 WBC 14.8 H RBC 3.59 L Hgb 9.8 L Hct 30.5 L MCV 84.9 MCH 27.1 MCHC 32.0 RDW 13.8 Plt Count 616 H Neut % (Auto) 79.7 H Lymph % (Auto) 11.7 L [place] % (Auto) 7.5 Eos % (Auto) 0.2 L Baso % (Auto) 0.9 Neut # (Auto) 45641 H Lymph # (Auto) 1700 [place] # (Auto) 1100 H Eos # (Auto) 0 Baso # (Auto) 100 Sodium Potassium Chloride Carbon Dioxide BUN Creatinine Estimated GFR BUN/Creatinine Ratio Glucose Calcium Magnesium Total Bilirubin AST ALT Alkaline Phosphatase Total Protein Albumin Globulin Albumin/Globulin Ratio Nasal Screen MRSA (PCR) Not detected Group A Strep (PCR) Cancelled 06/18/22 06/18/22 07:10 07:10 WBC RBC Hgb Hct MCV MCH MCHC RDW Plt Count Neut % (Auto) Lymph % (Auto) [place] % (Auto) Eos % (Auto) Baso % (Auto) Neut # (Auto) Lymph # (Auto) [place] # (Auto) Eos # (Auto) Baso # (Auto) Sodium 135 L Potassium 4.5 D Chloride 100 Carbon Dioxide 30 BUN 36 H Creatinine 0.63 Estimated GFR > 60 BUN/Creatinine Ratio 57.1 H Glucose 255 H D Calcium 8.0 L Magnesium 2.1 Total Bilirubin 0.2 AST 30 ALT 61 H Alkaline Phosphatase 564 H Total Protein 6.4 Albumin 3.0 L Globulin 3.4 Albumin/Globulin Ratio 0.9 L Nasal Screen MRSA (PCR) Group A Strep (PCR) Exam Vital Signs (past 8 hours): - 06/18/22 02:02 06/18/22 02:30 06/18/22 02:30 Temperature Pulse Rate 82 85 Respiratory Rate 10 L 11 L Blood Pressure 136/77 Pulse Oximetry 94 94 Oxygen Delivery Method Oxygen Flow Rate 1 1 1 06/18/22 03:00 06/18/22 03:00 06/18/22 03:07 Temperature Pulse Rate 84 82 Respiratory Rate 9 L 11 L Blood Pressure 137/84 Pulse Oximetry 94 94 Oxygen Delivery Method Oxygen Flow Rate 1 1 1 06/18/22 03:30 06/18/22 03:30 06/18/22 04:00 Temperature 97.6 F Pulse Rate 85 Respiratory Rate 9 L Blood Pressure 149/96 H 149/92 H Pulse Oximetry 94 Oxygen Delivery Method Oxygen Flow Rate 1 1 1 06/18/22 04:00 06/18/22 04:30 06/18/22 04:30 Temperature Pulse Rate 82 83 Respiratory Rate 9 L 10 L Blood Pressure 141/91 H Pulse Oximetry 94 95 Oxygen Delivery Method Oxygen Flow Rate 1 1 1 06/18/22 05:00 06/18/22 05:00 06/18/22 05:01 Temperature Pulse Rate 84 84 Respiratory Rate 10 L 9 L Blood Pressure 150/94 H Pulse Oximetry 95 95 Oxygen Delivery Method Oxygen Flow Rate 1 1 1 06/18/22 05:30 06/18/22 05:30 06/18/22 06:00 Temperature Pulse Rate 85 Respiratory Rate 9 L Blood Pressure 158/100 H 156/97 H Pulse Oximetry 95 Oxygen Delivery Method Oxygen Flow Rate 1 1 1 06/18/22 06:00 06/18/22 06:03 06/18/22 05:00 Temperature Pulse Rate 85 84 Respiratory Rate 9 L 9 L Blood Pressure Pulse Oximetry 94 95 Oxygen Delivery Method Nasal Cannula Oxygen Flow Rate 1 1 06/18/22 07:03 06/18/22 07:30 06/18/22 07:30 Temperature Pulse Rate 89 89 Respiratory Rate 14 13 Blood Pressure 157/99 H Pulse Oximetry 94 95 Oxygen Delivery Method Oxygen Flow Rate Fraction of Inspired Oxygen 28 SaO2/FiO2 Ratio 335 Oxygen Delivery Method Nasal Cannula Oxygen Flow Rate 1 Quality TeleICU VTE Deep Vein Thrombosis/Pulmonary Embolism Present on Admission: No Assessment & Plan Time Spent With Patient Critical Care time: I spent a total of [] minutes of critical care time on this patient's care today; this time is exclusive of procedural time.
--- NOTE | 2022-06-18 10:26 | DIET.CONS2 ---
Dietary Inpatient Consultation Note Admission Date: 06/17/2022 06:19 32y F admitted for pneumonia and pyelonephritis referred to nutrition for A1c 11.2. RD met with pt at bedside, pt has hx A1c >14, however, A1c over summer in 8 range. Pt does not use insulin pump, just had good handle on BG management over summer. Pt reports several infections and colds over this winter season which made BG management difficult. Pt states she is participating in her health management- seeing PT, ortho, having MRI. Pt states she is confident she can get her BGs in better range and is turning a corner. Provided supportive words of encouragement on pts work to manage T1D and success over summer. Diet: 06/17/22 Breakfast Carbohydrate Consistent Diet Diet Modifications: Carbohydrate level: Small (2 CHO) Bedtime snack: Yes Nutrition Percent Meal Consumed 100% 06/17/22 17:52 Percent Meal Consumed 25% 06/17/22 14:00 Percent Meal Consumed had 1/2 piece toast,milk and 06/17/22 08:53 water - Electronically Signed by: Ellen Kumari 06/18/22 10:26 Clinical Dietitian [address] [address]
--- NOTE | 2022-06-18 11:07 | PM.PN.1 ---
Subjective Subjective Date Patient Seen: 06/18/22 Interval history: Patient feeling better today and weaned to 1L O2. WBC downtrending. Transmission Supervisor met with patient and family today. Exam Vital Signs (past 8 hours): - 06/18/22 03:30 06/18/22 03:30 06/18/22 04:00 Temperature 97.6 F Pulse Rate 85 Respiratory Rate 9 L Blood Pressure 149/96 H 149/92 H Pulse Oximetry 94 Oxygen Delivery Method Oxygen Flow Rate 1 1 1 06/18/22 04:00 06/18/22 04:30 06/18/22 04:30 Temperature Pulse Rate 82 83 Respiratory Rate 9 L 10 L Blood Pressure 141/91 H Pulse Oximetry 94 95 Oxygen Delivery Method Oxygen Flow Rate 1 1 1 06/18/22 05:00 06/18/22 05:00 06/18/22 05:01 Temperature Pulse Rate 84 84 Respiratory Rate 10 L 9 L Blood Pressure 150/94 H Pulse Oximetry 95 95 Oxygen Delivery Method Oxygen Flow Rate 1 1 1 06/18/22 05:30 06/18/22 05:30 06/18/22 06:00 Temperature Pulse Rate 85 Respiratory Rate 9 L Blood Pressure 158/100 H 156/97 H Pulse Oximetry 95 Oxygen Delivery Method Oxygen Flow Rate 1 1 1 06/18/22 06:00 06/18/22 06:03 06/18/22 05:00 Temperature Pulse Rate 85 84 Respiratory Rate 9 L 9 L Blood Pressure Pulse Oximetry 94 95 Oxygen Delivery Method Nasal Cannula Oxygen Flow Rate 1 1 06/18/22 07:03 06/18/22 07:30 06/18/22 07:30 Temperature Pulse Rate 89 89 Respiratory Rate 14 13 Blood Pressure 157/99 H Pulse Oximetry 94 95 Oxygen Delivery Method Oxygen Flow Rate 06/18/22 08:00 06/18/22 09:30 Temperature Pulse Rate 94 H Respiratory Rate 17 Blood Pressure 127/84 Pulse Oximetry 95 Oxygen Delivery Method Nasal Cannula Oxygen Flow Rate 1 Fraction of Inspired Oxygen 28 SaO2/FiO2 Ratio 335 Oxygen Delivery Method Nasal Cannula Oxygen Flow Rate 1 Narrative Exam Narrative: General: Patient is a well-developed, well-nourished female, moderately ill-appearing in no acute distress at this time. HEENT: Normocephalic, atraumatic, extraocular muscles intact, oral pharynx is clear and mucous membranes are moist. Neck is supple and symmetric, trachea is midline, no adenopathy, no thyroid enlargement, nontender, no masses palpated. Negative for JVD Chest: no nasal flaring, retractions, positive tachypneic labored breathing Lungs: Auscultation of all lung valentin are decreased in bases, poor air exchange, occasional expiratory wheezing diffusely throughout. Cardio: regular rate and rhythm without murmur, rubs, or gallops, no carotid bruit, no cardiac pulsations present. Abdomen: Nontender, Bowel sounds are present in all 4 quadrants without guarding or rebound, positive bilateral CVA tenderness. Musculoskeletal: Muscle strength and tone are equal within normal limits, no deformity, crepitus, effusions, cyanosis, clubbing present. Mild +1 edema to right foot Full range of motion intact radial and pedal pulses are normal. Skin: Warm dry and intact without rashes, ulcerations or petechiae. Neuro: Alert and orientated x3, strength is +5/5 in all extremities, sensation to touch intact, no gross deficits noted of cranial nerves. Psych: Patient has a well-kept appearance, appropriate affect, mental status attitude thought context and judgment are appropriate for age. Objective Labs 06/18/22 07:10 06/18/22 07:10 Labs: Laboratory Results - last 24 hr 06/17/22 06/18/22 06/18/22 12:00 07:10 07:10 WBC 14.8 H RBC 3.59 L Hgb 9.8 L Hct 30.5 L MCV 84.9 MCH 27.1 MCHC 32.0 RDW 13.8 Plt Count 616 H Neut % (Auto) 79.7 H Lymph % (Auto) 11.7 L [place] % (Auto) 7.5 Eos % (Auto) 0.2 L Baso % (Auto) 0.9 Neut # (Auto) 45935 H Lymph # (Auto) 1700 [place] # (Auto) 1100 H Eos # (Auto) 0 Baso # (Auto) 100 Sodium 135 L Potassium 4.5 D Chloride 100 Carbon Dioxide 30 BUN 36 H Creatinine 0.63 Estimated GFR > 60 BUN/Creatinine Ratio 57.1 H Glucose 255 H D Calcium 8.0 L Magnesium Total Bilirubin 0.2 AST 30 ALT 61 H Alkaline Phosphatase 564 H Total Protein 6.4 Albumin 3.0 L Globulin 3.4 Albumin/Globulin Ratio 0.9 L Nasal Screen MRSA (PCR) Not detected 06/18/22 07:10 WBC RBC Hgb Hct MCV MCH MCHC RDW Plt Count Neut % (Auto) Lymph % (Auto) [place] % (Auto) Eos % (Auto) Baso % (Auto) Neut # (Auto) Lymph # (Auto) [place] # (Auto) Eos # (Auto) Baso # (Auto) Sodium Potassium Chloride Carbon Dioxide BUN Creatinine Estimated GFR BUN/Creatinine Ratio Glucose Calcium Magnesium 2.1 Total Bilirubin AST ALT Alkaline Phosphatase Total Protein Albumin Globulin Albumin/Globulin Ratio Nasal Screen MRSA (PCR) [facility] Medical History DKA (diabetic ketoacidoses) History of pyelonephritis Irregular menstrual cycle Migraine headache Nephrolithiasis Noncompliance w/medication treatment due to intermit use of medication Type 1 diabetes mellitus Surgical History History of ureter stent Hx of cataract surgery Hx of local excision of skin lesion Status post cholecystectomy Status post laser lithotripsy of ureteral calculus [place] teeth extracted Family History Father In good health Mother Cardiac disease Social History details: Engaged household members: family Smoking Status: Never smoker alcohol intake: never Assessment & Plan Assessment & Plan narrative: ?Ms. Sarabjit Jimenes is a 32-year-old female patient with a history significant for poorly controlled brittle type 1 diabetes, frequent admissions for DKA, migraines and irregular menstruation, ?presents by EMS for evaluation of generalized malaise and feeling unwell for the past few days at least.?Cough nonproductive x1 month, left ear pain.? rining in her ears, sore throat, dizzy, weak and lightheaded, back pain and abdominal pain. Patient admitted for acute hypercapnic respiratory failure with hypoxia secondary to pneumonia, with bilateral pleural effusions, pulmonary edema, transaminase with periportal edema, and pyelonephritis-patient being admitted to the ICU with tele ICU due to being a brittle insulin-dependent type 1 diabetic with repeated admits for DKA. 1. Acute hypercapnic respiratory failure with hypoxia, secondary to pneumoni and CHF exacerbation, present on admission -initially requiring 2 L nasal cannula, patient was saturating in the low-to-mid 80s on room air. -continue Rocephin and azithro switched to doxy -Lasix 20mg IV daily, now on 1L NC -chest x-ray demonstrates advanced interstitial type infiltrates atypical possible COVID pneumonia versus pulmonary edema -D-dimer 1245, -CTA negative for PE, pulmonary edema with moderate sized right pleural effusion and small left pleural effusion, multilobular reticular nodular opacities likely representing multilevel pneumonia. -lactate 1.1, BNP 4860, albumin 3.0, ketones are negative, COVID, influenza a/B, RSV are negative -Echocardiogram was done which revealed an EF of 40-45% with global hypokinesis.? Cardiology was subsequently contacted with recommendations for a nuclear stress test.? This was completed on November 14 which showed no evidence of pharmacologic induced ischemia or scar.? LVEF was 73%. -start metoprolol 25mg BID and losartan 12.5 BID 2. Transaminitis, with periportal edema, anemia, acute, present on admission -AST 208, ALT 104, alk-phos 767, H&H 9.931.3, platelets 635. -CTA: 6 mm enhancing nodule left hepatic lobe may represent a flash filling hemangioma. Heterogeneous enhancement of the liver with moderate periportal edema consider possible hepatitis/passive venous congestion. -CT of abdomen pelvis notes additional hepatomegaly with moderate periportal edema, retroperitoneal lymphadenopathy, diffuse urinary wall thickening. 3. Pyelonephritis, acute, present on admission -Urine: Positive WBC 3200, bacteria>30-urine culture with staph aureus -WBC 19.4 left shift 17,460 on admission -CT of abdomen pelvis notes diffuse urinary wall thickening -Rocephin Q 24 -start doxy BID to cover for MRSA 4. Brittle insulin-dependent type 1 diabetic, with hyperglycemia, acute on chronic, poorly controlled, present on admission -patient has had repeated admissions for DKA -Sodium 136, BUN 33, potassium 5.5, glucose 380, calcium 8.1, magnesium 2.1 -creatinine and GFR are WNL -patient admitted under diabetic protocol, will substitute Lantus for her Tresiba, and is on a medium dose sliding scale -A1c 11% -director of email marketing consulted and met with patient 5. GERD, chronic, present on admission -continue PPI 6. Malnutrition, mild, acute on chronic, present on admission -as evidence by BMI 21.4 -patient's malnutrition places them at high risk for medical and surgical complications in relation to acute illness/chronic illness. This increases the difficulty in complexity of medical management and increases the chances poor outcomes such as mortality and morbidity as well as impaired wound healing, and immune suppression. -dietary consult ordered to evaluate and implement steps to improve caloric intake and nutrition. Code status:Full Surrogate decision maker: Mother COVID PCR: Negative COVID vaccination: Unvaccinated DVT/VTE prophylaxis: Holding VTE medication due to acute anemia, SCDs only Dispo: Home in 1-2 days. Time Spent With Patient Critical Care time: I spent a total of [] minutes of critical care time on this patient's care today; this time is exclusive of procedural time. Quality VTE Deep Vein Thrombosis/Pulmonary Embolism Present on Admission: No
--- NOTE | 2022-06-18 11:12 | PT.IIE ---
Current Diagnoses Type 1 diabetes mellitus without complications (06/17/22) Acute pulmonary edema (06/17/22) Acute respiratory failure with hypoxia (06/17/22) Surgical History (Last Reviewed 06/18/22 @ 09:52 by Gildardo Bhardwaj MD) History of ureter stent Hx of cataract surgery Hx of local excision of skin lesion Status post cholecystectomy Status post laser lithotripsy of ureteral calculus [place] teeth extracted Medical History (Last Reviewed 06/18/22 @ 09:52 by Gildardo Bhardwaj MD) DKA (diabetic ketoacidoses) History of pyelonephritis Irregular menstrual cycle Migraine headache Nephrolithiasis Noncompliance w/medication treatment due to intermit use of medication Type 1 diabetes mellitus Physical Therapy Inpatient Evaluation/Re-Eval M1 PT/OT-IP Prior Functional Status Start: 06/17/22 12:54 Freq: NEEDED Status: Active Protocol: Document 06/18/22 11:12 AW (Rec: 06/18/22 11:59 AW [id number]) Medical Review Prior Functional Status Medical History Reviewed Yes Communication WNL. Pt is soft spoken but communicates her needs effectively. Mobility and Gait Pt has been using a transport chair as her primary mobility tool for the past 8 months. She is able to transfer to and from her chair using 4WW. She has an old ankle injury that was recently re-aggravated and she has been using a walking boot when out of the house. Her right knee has been bothering her more and she is pending MRI. She had been going to outpatient PT for her ankle and generalized weakness but is taking a break until there is a plan for her knee. Activities of Daily Living and IADL's Needs assist with dressing and showering. Tends to use BSC for toileting. Pt has 24/7 assist at baseline. Her mom essentially quit her job to take care of her manager bank. 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 Social History Household Members family Living Arrangements House Number of Floors (Floors) One Floor Number of Stairs To Enter/Railing? Ramped entry Home Environment Standard Height Toilet,Tub/ Shower,Ramp Home Equipment Four Wheel Walker,Bedside Commode,Tub Transfer Bench, Hand Held Shower Additional Social History Comment Pt has a transport chair and an adjustable bed. She is unable to work due to her chronic conditions. She lives with her mother and step father who provide 24/7 support. M2 PT-IP Current Condition Start: 06/17/22 12:54 Freq: NEEDED Status: Active Protocol: Document 06/18/22 11:12 AW (Rec: 06/18/22 11:59 AW [id number]) Physical Therapy Current Condition Current Condition Evaluation Date 06/18/22 Treatment Diagnosis GLF, acute hypoxic respiratory failure, impaired mobility and gait M3 PT-IP Subjective Start: 06/17/22 12:54 Freq: NEEDED Status: Active Protocol: Document 06/18/22 11:12 AW (Rec: 06/18/22 11:59 AW [id number]) Subjective Physical Therapy Visit Type Type Initial Evaluation Visit Start Time 10:51 Visit Stop Time 11:12 Total Visit Minutes 21 Physical Therapy Visit Comments Patient Comments Pt is willing to participate with PT Patient Goals Return home with family support. Get stronger overall. Therapy Pain Assessment Pain When Pain Assessed During Mobility Pain Present Pain Present Pain Reported Location Generalized Scale Used not quantified M4 PT-IP Mobility and Gait Start: 06/17/22 12:54 Freq: NEEDED Status: Active Protocol: Document 06/18/22 11:12 AW (Rec: 06/18/22 11:59 AW [id number]) PT-Bed Mobility Assessment Supine to Sit Supine to Sit Standby Assistance,Bedrails Sit to Supine Sit to Supine Standby Assistance Scooting Scooting to Edge of Bed Standby Assistance PT-Transfer Assessment Sit to and From Stand Sit to and from Stand Contact Guard Assistance,Use of Upper Extremities Equipment Transfer Assistive Device Gait Belt,Front Wheeled Walker Orthotic/Prosthetic Devices or Brace: No Transfers Transfer Destination Bed,Bedside Commode Transfer Technique Stand Step Pivot Transfer Ability Level of Assist Contact Guard Assistance Comments Mobility Comments Pt was lying in bed as PT arrived. SpO2 was 95% on 1 L/ min hydrated O2 via NC. Pt agreed to room air trial. [facility] Movement was slow but pt was able to complete supine to sit SBA. She stood CGA and used FWW to transfer to the [facility]. She stated she did not need the walking boot to complete transfers. She did toe-touch weightbearing RLE which is likely baseline due to severe gastroc equinus. BUE weightbearing on the walker was heavy during transfer. On return to the bed, pt needed to use UE's to lift each leg to the mattress but did not need assist from PT. She repositioned on the bed without assist. SpO2 was stable 92-94% throughout and three minutes following activity on room air. Pt was left on continuous pulse oximetry and RN was informed that pt was left on room air. Gait Assessment Comments Gait Comments Steps taken during transfers only. See mobility comments for details. Stair Climbing Assessment Comments Stair Climbing Comments Pt has ramped entry. PT-Balance Assessment Sitting Balance and Reactions Static Sitting Balance Ability Good Dynamic Sitting Balance Ability Good Standing Balance and Reactions Static Standing Balance Ability Good Dynamic Standing Balance Ability Fair Device Used FWW Comments Other Balance Tests/Deviations/Treatment Pt keeps one hand on the FWW : while managing her briefs independently, states she does not trust her legs to hold her without UE assist. M5 PT-IP Objective Assessments Start: 06/17/22 12:54 Freq: NEEDED Status: Active Protocol: Document 06/18/22 11:12 AW (Rec: 06/18/22 11:59 AW [id number]) Orientation Orientation/Cognition Level of Alertness Alert Orientation Name,Day of Week,Place, Situation Language Function Ability No Deficits Noted Safety Awareness Understands Safety Issues Memory Description No Deficits Noted Gross Range of Motion Upper Extremity ROM Assessment Within Functional Limits Lower Extremity ROM Assessment Bilaterally Impaired Impairments Dorsiflexion is limited bilaterally. Left is just shy of neutral. Right lacks ~10 degrees. Strength Lower Extremity Strength Assessment Bilaterally Impaired Hip B 3-/5 Knee L 4-/5; R NT due to pain Ankle L 3+/5; R 2+/5 Sensation Assessment Sensation Gross Sensation Right LE Impaired,Left LE Impaired Light Touch Impaired Proprioception (Position) Impaired Sensation Description Numbness Comments Sensation Comments Pt states R is more affected than L M6 PT-IP Treatment Start: 06/17/22 12:54 Freq: NEEDED Status: Active Protocol: Document 06/18/22 11:12 AW (Rec: 06/18/22 11:59 AW [id number]) Physical Therapy Treatment Education Education Provided Safety M7 PT-IP Assessment and Plan Start: 06/17/22 12:54 Freq: NEEDED Status: Active Protocol: Document 06/18/22 11:12 AW (Rec: 06/18/22 11:59 AW [id number]) PT Summary Assessment and Plan Potential Rehabilitation Potential Fair Status of Condition at Evaluation Evolving Summary Impairments Pain,ROM,Strength,Balance, Sensation,Transfers,Gait, Activity Tolerance Assessment Summary Sarabjit is a 32 yo woman admitted with falls, weakness, acute respiratory failure secondary to possible acute heart failure, pulmonary edema , and large pleura effusions. PMH is significant for T1DM. Pt has had 18 ED visits in the past 12 months. She has struggled with her mobility for over a year. She had right ankle surgery a few years ago and presents with gastroc equinus of that ankle. She limits her weightbearing on the RLE due to ankle ROM deficits and right knee pain. Her primary mode of mobility is a transport chair; she is able to transfer with 4WW. When she needs to walk more than a few feet, she uses a walking boot on her RLE. She was going to outpatient PT to address her right ankle and generalized weakness but is currently on hold due to worsening right knee pain. Pt is found resting in bed today on 1 L/min O2 via NC. SpO2 was 95%. Pt agreed to room air trial. She sat up EOB with notable bilateral hip weakness. She stood CGA using FWW and completed two transfers CGA. SpO2 was stable 92-94% during and after activity on room air. Pt is likely at or just below her baseline function for mobility but would benefit from a few follow up visits with acute PT . She may be a good candidate for PT at discharge to improve her strength and mobility independence. Goals Bed Mobility Goal Independent Transfer Goal Independent,Four Wheeled Walker Gait Goal Standby Assistance,Four Wheel Walker Gait Distance 10 Days to Meet Goals 5 Frequency of Treatment Frequency Of Treatment Once a Day Treatment Plan Physical Therapy Treatment Plan Bed Mobility Training,Transfer Training,Gait Training, Therapeutic Exercise,Balance Retraining,Discharge Planning, Hot or Cold Pack,Neuromuscular Re-ed Other Recommendations and Next Treatment assess transfers with 4WW, Focus using boot prn Precautions Other Precautions falls risk Recommendations To Nursing Amount of Assist Needed 1 Person Assist Discharge Recommendations PT Discharge Recommendations Home with 24/ Assist Available,Home Health Transportation Needs at Discharge Private Vehicle
--- NOTE | 2022-06-18 12:01 | OT.IPNOTE ---
Attempted to see pt for OT eval and able to talk to pt at length of energy conservation and also to have her mother let her try to do things for herself before just automatically assisting. At this time pt just wanting to focus on mobility needs and not wanting OT at this time. To double check with pt again tomorrow for OT eval if still here. NO charge.
[2022-06-18] MEDS: DOXYCYCLINE HYCLATE 100 MG TABLET PO ×2 (12:23→22:54)
--- NOTE | 2022-06-18 15:14 | CM.DANOTE ---
Patient is a 32 yo female who was admitted on 06/17/22 for Acute Resp Failure. Pt has MAKAYLA MESSER and RENE for insurance and her PCP is Maria Ines Limon. EMR was reviewed. Per MD, pt with hypoxic resp failure and possible CHF and possible pneumonia with possible illeus. PT/OT ordered and worked some with pt today with mother bedside. Certified Flight Instructor Ellen also met bedside with pt and discussed that she had been maintaining her blood sugars well until she started becoming sick and had difficulty keeping her sugars in good range. SW met bedside with pt, mother had gone home, and she confirms that she is still living with her mom and mom has been very helpful in getting pt to her appointments including Ortho for her ongoing knee and foot pain, attending outpt PT at [facility] and making some progress, and PCP in [facility]. Pt has been using a walker and w/c on occasion when she is having a painful day. Pt confirms that she still has Community Stick Welder Dave involved and they call him from time to time when they need assist or resources and she feels he has been helpful. SW left Dvae chou msg updating him that pt was admitted. Pt states her mom is still working cleaning houses but has cut back a lot on her work and makes sure she is home in the afternoons and available for transport to appointments. Pt feels very supported by her mom. Pt does not anticipate any further needs at d/c and preference is home tomorrow if stable and plans to continue outpt PT. Plan: SW to follow for plan of possible d/c home tomorrow if medically stable and any further identified discharge needs. RAYMOND Roman Discharge Planning/Care Management Advanced directive, confirm from FAMILY Start: 06/17/22 13:08 Freq: Q24H Status: Active Protocol: Document 06/17/22 13:08 CW (Rec: 06/17/22 13:09 CW [id number]) Advance Directive, confirm on record Time 13:09 Person contacted patient Copy received No CM Discharge Assessment Start: 06/18/22 15:13 Freq: Status: Active Protocol: Document 06/18/22 15:13 BF (Rec: 06/18/22 15:14 BF [id number]) Discharge Planning Assessment Assigned Front End Manager RAYMOND Brannon DPOA/Assigned Designee Name mother informally Advance Directives? No Advance Directives on File No History Provided By Patient,Family Member,Medical Record Has Patient been admitted in last 30 No days? Prior Living Arrangements House Household Members family Type of transporation used prior to Relies on Others admit Comment Lives with mom who transports her Independent with ADL's No Is patient alert and oriented? Yes Needs Assistance With Meal Prep,Managing Medications ,Home Chores / Shopping Caregiver for Another No Community Services used prior to Physical Therapy admission: DME Already Rented / Owned Wheelchair,FWW / Walker Patient/Family Preference OP PT Therapy Barriers to Discharge No Comment PCP is Dr. Limon at [facility] ph# [phone]. Discharge Plan Home Community Services Physical Therapy Transportation Arrangement Family Referrals Initiated None needed,Other Additional Comment Pt has been going to see tie tape machine operator on an outpatient basis and also [place] outpt PT Whiteboard Updated in Patient Room with Yes name and ext. # of Front End Manager Review Status In Process Please Provide Date Initial DC 06/18/22 Assessment Was Performed Next Review Type Continued Stay Review
[2022-06-18] MEDS: ATROPINE 1% OPHTH 1 DROPS EYE-LEFT (20:09)
[2022-06-18] MEDS: PANTOPRAZOLE DR 40 MG TABLET PO (20:11)
[2022-06-18] MEDS: LATANOPROST 0.005% OPHTH 2.5 ML 1 DROPS EYE-BOTH (20:15)
[2022-06-18] MEDS: INSULIN GLARGINE 100 UNIT/ML 3ML PEN 10 UNIT SUBCUT (21:20)
[2022-06-18] MEDS: METOPROLOL IR 25 MG TABLET PO (21:30)
[2022-06-18] MEDS: ACETAMINOPHEN 325 MG TABLET 975 MG PO (21:30)
[2022-06-18] MEDS: LOSARTAN 25 MG TABLET 12.5 MG PO (21:30)
[2022-06-19] VITALS (10 sets, daily range): BP systolic 98–181; BP diastolic 58–99; PULSE 80–92; RESP 14–20; TEMP 36.4–36.8; O2SAT 70–98
[2022-06-19 00:03] LABS: HBsAg Screen Negative (Negative); Hepatitis A Antibody IgM Negative (Negative); Hepatitis B Core Antibody IgM Negative (Negative); Hepatitis C Antibody Non Reactive (Non Reactive)
[2022-06-19] MEDS: ACETAMINOPHEN 325 MG TABLET 975 MG PO ×3 (05:15→21:02)
[2022-06-19] MEDS: SODIUM CHLORIDE 0.9% FLUSH 10 ML IV (05:17)
[2022-06-19] MEDS: cefTRIAXone 1,000 MG in SODIUM CHLORIDE 0.9% 100 ML 200 MG IV (05:35)
[2022-06-19 05:58] LABS: Add Manual Diff / Slide Review NO; Basophils Absolute Auto 200 /uL (0-100); Basophils Percent Auto 1.5 % (0-2); Eosinophils Absolute Auto 500 /uL (0-450); Eosinophils Percent Auto 4.9 % (2-4); Hematocrit 29.8 % (36-46); Hemoglobin 9.5 g/dL (12.0-16.0); Lymphocytes Absolute Auto 2400 /uL (1100-4500); Mean Corpuscular HGB Conc 31.9 % (30-36); Mean Corpuscular Hemoglobin 27.2 PG (26-34); Mean Corpuscular Volume 85.2 fL (80-100); Monocytes Absolute Auto 1100 /uL (0-900); Monocytes Percent Auto 10.4 % (3-14); Neutrophils Absolute Auto 6700 /uL (1500-7000); Neutrophils Percent Auto 61.2 % (50-75); Platelet Count 682 X10^3/uL (150-400); White Blood Cell Count 10.9 X10^3/uL (4.5-11.0)
[2022-06-19 06:02] LABS: Alanine Aminotransferase 41 IU/L (<35); Albumin 2.7 g/dL (3.5-5.0); Albumin Globulin Ratio 0.8 (1.0-2.8); Alkaline Phosphatase 429 U/L (38-126); Aspartate Aminotransferase 24 IU/L (14-36); BUN Creatinine Ratio 52.2 (6-22); Bilirubin Total 0.2 mg/dL (0.2-1.3); Blood Urea Nitrogen 35 mg/dL (7-17); Calcium 7.8 mg/dL (8.4-10.2); Carbon Dioxide 31 mmol/L (22-32); Chloride 100 mmol/L (98-107); Estimated Glomerular Filt Rate > 60 mL/min (>60); Globulin 3.3 g/dL (1.7-4.1); Glucose 110 mg/dL (70-100); HEMOLYSIS 24 (0-50); Potassium 4.5 mmol/L (3.4-5.1); Sodium 139 mmol/L (137-145)
[2022-06-19 06:08] LABS: Magnesium 1.9 mg/dL (1.6-2.3)
[2022-06-19] MEDS: TIMOLOL 0.5% OPHTH 1 DROPS EYE-BOTH ×2 (08:39→21:07)
[2022-06-19] MEDS: SIMBRINZA 1 EACH EYE-BOTH ×2 (08:39→21:07)
[2022-06-19] MEDS: FUROSEMIDE 40 MG/4 ML VIAL 20 MG IV (08:43)
[2022-06-19] MEDS: LOSARTAN 25 MG TABLET 12.5 MG PO ×2 (08:43→20:56)
[2022-06-19] MEDS: SENNOSIDES 8.6 MG TABLET PO (08:43)
[2022-06-19] MEDS: DOXYCYCLINE HYCLATE 100 MG TABLET PO ×2 (08:43→20:55)
[2022-06-19] MEDS: METOPROLOL IR 25 MG TABLET PO ×2 (08:43→20:56)
[2022-06-19] MEDS: INSULIN GLARGINE 100 UNIT/ML 3ML PEN 20 UNIT SUBCUT (08:50)
--- NOTE | 2022-06-19 08:50 | P.PN_ITS ---
Subjective Subjective Date Patient Seen: 06/19/22 Interval history: Patient sleepy but feels better than yesterday. WBC now normal. Weaned off O2 but then needed it back on while sleeping. Exam Vital Signs (past 8 hours): - 06/19/22 05:00 06/19/22 08:27 Temperature 98.0 F 98.3 F Pulse Rate 87 87 Respiratory Rate 15 14 Blood Pressure 140/87 181/98 H Pulse Oximetry 96 97 Oxygen Flow Rate 0.5 0.5 Fraction of Inspired Oxygen 28 SaO2/FiO2 Ratio 335 Oxygen Delivery Method Room Air Oxygen Flow Rate 0.5 Narrative Exam Narrative: General: Patient is a well-developed, well-nourished female, moderately ill- appearing in no acute distress at this time. HEENT: Normocephalic, atraumatic, extraocular muscles intact, oral pharynx is clear and mucous membranes are moist. Neck is supple and symmetric, trachea is midline, no adenopathy, no thyroid enlargement, nontender, no masses palpated. Negative for JVD Chest: no nasal flaring, retractions, positive tachypneic labored breathing Lungs: Auscultation of all lung valentin are decreased in bases, poor air e xchange, occasional expiratory wheezing diffusely throughout. Cardio: regular rate and rhythm without murmur, rubs, or gallops, no carotid bruit, no cardiac pulsations present. Abdomen: Nontender, Bowel sounds are present in all 4 quadrants without guarding or rebound, positive bilateral CVA tenderness. Musculoskeletal: Muscle strength and tone are equal within normal limits, no deformity, crepitus, effusions, cyanosis, clubbing present. Mild +1 edema to right foot Full range of motion intact radial and pedal pulses are normal. Skin: Warm dry and intact without rashes, ulcerations or petechiae. Neuro: Alert and orientated x3, strength is +5/5 in all extremities, sensation to touch intact, no gross deficits noted of cranial nerves. Psych: Patient has a well-kept appearance, appropriate affect, mental status attitude thought context and judgment are appropriate for age. Objective Labs 06/19/22 05:35 06/19/22 05:35 Labs: Laboratory Results - last 24 hr 06/17/22 06/19/22 06/19/22 08:10 05:35 05:35 WBC 10.9 RBC 3.50 L Hgb 9.5 L Hct 29.8 L MCV 85.2 MCH 27.2 MCHC 31.9 RDW 14.0 Plt Count 682 H Neut % (Auto) 61.2 Lymph % (Auto) 22.0 L [place] % (Auto) 10.4 Eos % (Auto) 4.9 H Baso % (Auto) 1.5 Neut # (Auto) 6700 Lymph # (Auto) 2400 [place] # (Auto) 1100 H Eos # (Auto) 500 H Baso # (Auto) 200 H Sodium 139 Potassium 4.5 Chloride 100 Carbon Dioxide 31 BUN 35 H Creatinine 0.67 Estimated GFR > 60 BUN/Creatinine Ratio 52.2 H Glucose 110 H D Calcium 7.8 L Magnesium Total Bilirubin 0.2 AST 24 ALT 41 H Alkaline Phosphatase 429 H Total Protein 6.0 L Albumin 2.7 L Globulin 3.3 Albumin/Globulin Ratio 0.8 L Hepatitis A IgM Ab Negative Hep Bs Antigen Negative Hep B Core IgM Ab Negative Hepatitis C Antibody Non reactive Hep C Ab Signal/Cutoff Comment 06/19/22 05:35 WBC RBC Hgb Hct MCV MCH MCHC RDW Plt Count Neut % (Auto) Lymph % (Auto) [place] % (Auto) Eos % (Auto) Baso % (Auto) Neut # (Auto) Lymph # (Auto) [place] # (Auto) Eos # (Auto) Baso # (Auto) Sodium Potassium Chloride Carbon Dioxide BUN Creatinine Estimated GFR BUN/Creatinine Ratio Glucose Calcium Magnesium 1.9 Total Bilirubin AST ALT Alkaline Phosphatase Total Protein Albumin Globulin Albumin/Globulin Ratio Hepatitis A IgM Ab Hep Bs Antigen Hep B Core IgM Ab Hepatitis C Antibody Hep C Ab Signal/Cutoff [facility] Medical History DKA (diabetic ketoacidoses) History of pyelonephritis Irregular menstrual cycle Migraine headache Nephrolithiasis Noncompliance w/medication treatment due to intermit use of medication Type 1 diabetes mellitus Surgical History History of ureter stent Hx of cataract surgery Hx of local excision of skin lesion Status post cholecystectomy Status post laser lithotripsy of ureteral calculus [place] teeth extracted Family History Father In good health Mother Cardiac disease Social History details: Engaged household members: family Smoking Status: Never smoker alcohol intake: never Assessment & Plan Assessment & Plan narrative: 1. Acute hypercapnic respiratory failure with hypoxia, secondary to pneumoni and CHF exacerbation, present on admission -initially requiring 2 L nasal cannula, patient was saturating in the low-to-mid 80s on room air. -continue Rocephin and azithro switched to doxy -Lasix 20mg IV daily, now weaned to room air when awake -chest x-ray demonstrates advanced interstitial type infiltrates atypical possible COVID pneumonia versus pulmonary edema -D-dimer 1245, -CTA negative for PE, pulmonary edema with moderate sized right pleural effusion and small left pleural effusion, multilobular reticular nodular opacities likely representing multilevel pneumonia. -lactate 1.1, BNP 4860, albumin 3.0, ketones are negative, COVID, influenza a/B, RSV are negative -Echocardiogram was done which revealed an EF of 40-45% with global hypokinesis.? Cardiology was subsequently contacted with recommendations for a nuclear stress test.? This was completed on November 14 which showed no evidence of pharmacologic induced ischemia or scar.? LVEF was 73%. -started metoprolol 25mg BID and losartan 12.5 BID, HTN and tachycardia improving 2. Transaminitis, with periportal edema, anemia, acute, present on admission -AST 208, ALT 104, alk-phos 767, H&H 9.931.3, platelets 635. -CTA: 6 mm enhancing nodule left hepatic lobe may represent a flash filling hemangioma. Heterogeneous enhancement of the liver with moderate periportal edema consider possible hepatitis/passive venous congestion. -CT of abdomen pelvis notes additional hepatomegaly with moderate periportal edema, retroperitoneal lymphadenopathy, diffuse urinary wall thickening. 3. Staph pyelonephritis, acute, present on admission -Urine: Positive WBC 3200, bacteria>30-urine culture with MSSA, blood cultures negative, echo without endocarditis -WBC 19.4 left shift 17,460 on admission -CT of abdomen pelvis notes diffuse urinary wall thickening -started doxy BID 4. Brittle insulin-dependent type 1 diabetic, with hyperglycemia, acute on chronic, poorly controlled, present on admission -patient has had repeated admissions for DKA -Sodium 136, BUN 33, potassium 5.5, glucose 380, calcium 8.1, magnesium 2.1 -creatinine and GFR are WNL -patient admitted under diabetic protocol, will substitute Lantus for her Tresiba, and is on a medium dose sliding scale -A1c 11% -healthcare architect consulted and met with patient 5. GERD, chronic, present on admission -continue PPI 6. Malnutrition, mild, acute on chronic, present on admission -as evidence by BMI 21.4 -patient's malnutrition places them at high risk for medical and surgical complications in relation to acute illness/chronic illness. This increases the difficulty in complexity of medical management and increases the chances poor outcomes such as mortality and morbidity as well as impaired wound healing, and immune suppression. -dietary consult ordered to evaluate and implement steps to improve caloric intake and nutrition. Code status:Full Surrogate decision maker: Mother COVID PCR: Negative COVID vaccination: Unvaccinated DVT/VTE prophylaxis: Holding VTE medication due to acute anemia, SCDs only Dispo: Home in 1-2 days. Time Spent With Patient Critical Care time: I spent a total of [] minutes of critical care time on this patient's care today; this time is exclusive of procedural time. Quality VTE Deep Vein Thrombosis/Pulmonary Embolism Present on Admission: No
[2022-06-19] MEDS: INSULIN LISPRO 100 UNIT/ML 3ML VIAL SUBCUT ×3 (12:20→20:59)
--- NOTE | 2022-06-19 14:33 | PT-IP ANOTE ---
Pt states she is too tired after family visit. Additionally states she is fearful of walking in room with her boot due to the smoothness of the floor. More used to carpet in the home.
--- NOTE | 2022-06-19 15:09 | OT.IPNOTE ---
Pt's family just left earlier and pt states just wanting to rest and to have therapy check on her tomorrow.
[2022-06-19] MEDS: ATROPINE 1% OPHTH 1 DROPS EYE-LEFT (20:55)
[2022-06-19] MEDS: INSULIN GLARGINE 100 UNIT/ML 3ML PEN 10 UNIT SUBCUT (20:59)
[2022-06-19] MEDS: LATANOPROST 0.005% OPHTH 2.5 ML 1 DROPS EYE-BOTH (21:03)
[2022-06-19] MEDS: PANTOPRAZOLE DR 40 MG TABLET PO (21:10)
[2022-06-20] VITALS: BP 122/74; PULSE 81; RESP 10; TEMP 36.5; O2SAT 98
[2022-06-20 03:16] LABS: Add Manual Diff / Slide Review NO; Basophils Absolute Auto 100 /uL (0-100); Basophils Percent Auto 1.3 % (0-2); Eosinophils Absolute Auto 600 /uL (0-450); Eosinophils Percent Auto 6.1 % (2-4); Hematocrit 30.7 % (36-46); Hemoglobin 9.7 g/dL (12.0-16.0); Lymphocytes Absolute Auto 2400 /uL (1100-4500); Lymphocytes Percent Auto 24.1 % (25-40); Mean Corpuscular HGB Conc 31.7 % (30-36); Mean Corpuscular Hemoglobin 26.8 PG (26-34); Mean Corpuscular Volume 84.4 fL (80-100); Monocytes Absolute Auto 1100 /uL (0-900); Monocytes Percent Auto 11.2 % (3-14); Neutrophils Absolute Auto 5700 /uL (1500-7000); Neutrophils Percent Auto 57.3 % (50-75); Platelet Count 660 X10^3/uL (150-400); Red Blood Cell Count 3.63 X10^6/uL (4.0-5.2); Red Cell Distribution Width 13.5 % (11.6-14.8); White Blood Cell Count 9.9 X10^3/uL (4.5-11.0)
[2022-06-20 03:26] LABS: Alanine Aminotransferase 33 IU/L (<35); Albumin 2.6 g/dL (3.5-5.0); Albumin Globulin Ratio 0.8 (1.0-2.8); Alkaline Phosphatase 370 U/L (38-126); Aspartate Aminotransferase 20 IU/L (14-36); BUN Creatinine Ratio 50.8 (6-22); Bilirubin Total 0.2 mg/dL (0.2-1.3); Blood Urea Nitrogen 33 mg/dL (7-17); Calcium 8.1 mg/dL (8.4-10.2); Carbon Dioxide 31 mmol/L (22-32); Chloride 102 mmol/L (98-107); Estimated Glomerular Filt Rate > 60 mL/min (>60); Globulin 3.2 g/dL (1.7-4.1); Glucose 68 mg/dL (70-100); HEMOLYSIS < 15 (0-50); Sodium 136 mmol/L (137-145); Total Protein 5.8 g/dL (6.3-8.2)
[2022-06-20 04:00] VITALS: BP 124/88; PULSE 81; RESP 10; TEMP 36.4; O2SAT 95
[2022-06-20] MEDS: cefTRIAXone 1,000 MG in SODIUM CHLORIDE 0.9% 100 ML 200 MG IV (06:54)
[2022-06-20] MEDS: INSULIN GLARGINE 100 UNIT/ML 3ML PEN 20 UNIT SUBCUT (08:40)
[2022-06-20] MEDS: INSULIN LISPRO 100 UNIT/ML 3ML VIAL SUBCUT (08:42)
[2022-06-20] MEDS: TIMOLOL 0.5% OPHTH 1 DROPS EYE-BOTH (08:43)
[2022-06-20] MEDS: SIMBRINZA 1 EACH EYE-BOTH (08:43)
[2022-06-20] MEDS: METOPROLOL IR 25 MG TABLET PO (08:49)
[2022-06-20] MEDS: FUROSEMIDE 40 MG/4 ML VIAL 20 MG IV (08:49)
[2022-06-20] MEDS: LOSARTAN 25 MG TABLET 12.5 MG PO (08:49)
[2022-06-20] MEDS: SENNOSIDES 8.6 MG TABLET PO (08:49)
[2022-06-20] MEDS: DOXYCYCLINE HYCLATE 100 MG TABLET PO (08:49)
--- NOTE | 2022-06-20 08:59 | P.DS_ITS ---
History of Present Illness History of Present Illness Date Patient Seen: 06/20/22 Time Patient Seen: 09:00 Chief complaint: general malaise & ear pain Narrative: Per admitting provider, ?Ms. Sarabjit Jimenes is a 32-year-old female patient with a history significant for poorly controlled type 1 diabetes, frequent admissions for DKA, migraines and irregular menstruation, ?presents by EMS for evaluation of generalized malaise and feeling unwell for the past few days at least.?Cough nonproductive x1 month, left ear pain.? rining in her ears, sore throat, dizzy, weak and lightheaded, back pain and abdominal pain.? She denies any new medications or change in her typical regimen. Patient denies fever body aches or chills, nasal drainage, does endorse pain with deep breathing, increased fatigue and weakness. She notes that she is had improved blood sugar control lately, has not traveled or had exposure to any ill persons, has received no vaccines as she has a bad reaction to them. On admit patient denies chest pain, changes in vision, difficulty swallowing, speech impairment, numbness, tingling, difficulty with ambulation, recent falls, head injury, LOC, fever, chills, recent exposure to illness, vomiting, urinary incontinence/retention, dysuria, frequency, urgency, hematuria, bowel changes, constipation, incontinence, melena, rashes, recent changes to medication, illness, injury, or trauma. Admit temp 97.6?, 145/86, 95, 18, 98% on 2 L nasal cannula, ABGs pH 7.32, pCO2 56.5, PO2 30, bicarb 29, TCO2 31, O2 sat 50%, base excess 3, FiO2 of 21. WBC 19.4 left shift 17,460, procalcitonin negative. H&H 9.931.3, platelets 635. Sodium 136, BUN 33, potassium 5.5, glucose 380, calcium 8.1, magnesium is stable at 2.1, AST 208, ALT 104, alk-phos 767, D-dimer 1245, lactate 1.1, BNP 4860, albumin 3.0, ketones are negative, COVID, influenza a/B, RSV are negative, chest x-ray demonstrates advanced interstitial type infiltrates atypical possible COVID pneumonia versus pulmonary edema. CTA negative for PE, pulmonary edema with moderate sized right pleural effusion and small left pleural effusion, multilobular reticular nodular opacities likely representing multilevel pneumonia, 6 mm enhancing nodule left hepatic lobe may represent a flash filling hemangioma. Heterogeneous enhancement of the liver with moderate periportal edema consider possible hepatitis/passive venous congestion. CT of abdomen pelvis notes additional hepatomegaly with moderate periportal edema, retroperitoneal lymphadenopathy, diffuse urinary wall thickening. Patient admitted for acute hypercapnic respiratory failure with hypoxia secondary to pneumonia, with bilateral pleural effusions, pulmonary edema, transaminase with periportal edema, and pyelonephritis Discharge Providers Provider Date of admission: 06/17/22 06:19 Discharge Date: 06/20/22 Primary care physician: Maria Ines Limon DO Consults: 06/17/22 06:14 Consult to Dietitian, Adult Urgent Comment: Reason For Exam: BMI 21.4 06/17/22 06:19 Consult to Discharge Planning Routine Comment: Consult to Tele-scientific programmer analyst Routine Comment: Consulting Provider: [employer] 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 Acute hypercapnic respiratory failure with hypoxia, secondary to bacterial pneumonia and acute on chronic heart failure with preserved/bordeline EF, present on admission 2. Transaminitis, with periportal edema, anemia, acute, present on admission 3. Staph pyelonephritis, acute, present on admission 4. Brittle insulin-dependent type 1 diabetic, with hyperglycemia, acute on chronic, poorly controlled, present on admission 5. GERD, chronic, present on admission 6. Malnutrition, mild, acute on chronic, present on admission Hospital Course: This is a 32-year-old female with a past medical history type 1 diabetes, GERD, malnutrition who was admitted with acute hypercapnic and hypoxemic respiratory failure. CTA was negative for PE, but did show b/l pleural effusions and possible pneumonia or fluid overload. Was initially requiring 2 supplemental oxygen, and was started on antibiotics and furosemide for presumed combination of bacterial pneumonia pulmonary edema. Previous echocardiogram in the setting of CPR for presumed respiratory arrest had showed a borderline ejection fraction. She had a negative stress test in the interim in October. Repeat echo this admission showed slightly improved EF at 45-50%. She was started on chronic heart failure medications with metoprolol, losartan and furosemide. She diuresed well with IV lasix. Revisiting the need for furosemide with PCP is recommended in a couple of weeks depending on tolerance and symptoms. Urine cultures also grew MSSA, sensitive to doxycycline. With improvement in her symptoms, she was discharged home after a couple of days. A1c did show some improvement at 11% compared to prior studies. Follow up is recommended with PCP and probable referral to cardiology given borderline EF on repeat testing with previously unremarkable stress testing. Time Spent with Patient Time spent: Greater than 30 minutes Exam Vital Signs (past 8 hours): - 06/20/22 04:00 Temperature 97.6 F Pulse Rate 81 Respiratory Rate 10 L Blood Pressure 124/88 Pulse Oximetry 95 Oxygen Flow Rate 0 Fraction of Inspired Oxygen 28 SaO2/FiO2 Ratio 335 Oxygen Delivery Method Room Air Oxygen Flow Rate 0 Narrative Exam Narrative: General: Patient is a well-developed, well-nourished female, moderately ill- appearing in no acute distress at this time. HEENT: Normocephalic, atraumatic, extraocular muscles intact, oral pharynx is clear and mucous membranes are moist. Neck is supple and symmetric, trachea is midline, no adenopathy, no thyroid enlargement, nontender, no masses palpated. Negative for JVD Chest: no nasal flaring, retractions, positive tachypneic labored breathing Lungs: mild bibasilar rales, no rhonchi or wheezing. Cardio: regular rate and rhythm without murmur, rubs, or gallops, no carotid bruit, no cardiac pulsations present. Abdomen: S NT ND Musculoskeletal: Muscle strength and tone are equal within normal limits, no deformity, crepitus, effusions, cyanosis, clubbing present. Mild +1 edema to right foot Full range of motion intact radial and pedal pulses are normal. Skin: Warm dry and intact without rashes, ulcerations or petechiae. Neuro: Alert and orientated x3, strength is +5/5 in all extremities, sensation to touch intact, no gross deficits noted of cranial nerves. Psych: Patient has a well-kept appearance, appropriate affect, mental status attitude thought context and judgment are appropriate for age. Objective Labs 06/20/22 03:00 06/20/22 03:00 Labs: Laboratory Results - last 24 hr 06/20/22 06/20/22 03:00 03:00 WBC 9.9 RBC 3.63 L Hgb 9.7 L Hct 30.7 L MCV 84.4 MCH 26.8 MCHC 31.7 RDW 13.5 Plt Count 660 H Neut % (Auto) 57.3 Lymph % (Auto) 24.1 L [place] % (Auto) 11.2 Eos % (Auto) 6.1 H Baso % (Auto) 1.3 Neut # (Auto) 5700 Lymph # (Auto) 2400 [place] # (Auto) 1100 H Eos # (Auto) 600 H Baso # (Auto) 100 Sodium 136 L Potassium 4.0 Chloride 102 Carbon Dioxide 31 BUN 33 H Creatinine 0.65 Estimated GFR > 60 BUN/Creatinine Ratio 50.8 H Glucose 68 L Calcium 8.1 L Total Bilirubin 0.2 AST 20 ALT 33 Alkaline Phosphatase 370 H Total Protein 5.8 L Albumin 2.6 L Globulin 3.2 Albumin/Globulin Ratio 0.8 L PFSH Medical History DKA (diabetic ketoacidoses) History of pyelonephritis Irregular menstrual cycle Migraine headache Nephrolithiasis Noncompliance w/medication treatment due to intermit use of medication Type 1 diabetes mellitus Surgical History History of ureter stent Hx of cataract surgery Hx of local excision of skin lesion Status post cholecystectomy Status post laser lithotripsy of ureteral calculus [place] teeth extracted Family History Father In good health Mother Cardiac disease Social History details: Engaged household members: family Smoking Status: Never smoker alcohol intake: never Discharge Plan Discharge Plan Patient Disposition: Home Provider Discharge Comment: You were admitted to the hospital with shortness of breath, possibly due to mild heart failure, or infection. Please follow up with your PCP this week for cardiology referral. Medication changes are noted below and sent to [facility]. Discharge orders & Medications Prescriptions: New losartan 25 mg Tablet 25 mg PO DAILY 30 Days Qty: 30 0RF doxycycline hyclate 100 mg Tablet 100 mg PO BID 4 Days Qty: 8 0RF metoprolol tartrate 25 mg Tablet 25 mg PO BID 30 Days Qty: 60 0RF furosemide 20 mg tablet 20 mg PO DAILY 30 Days Qty: 30 0RF Continued glucose 4 gram tablet,chewable 4 gram PO Q15M PRN (Reason: hypoglycemia) Qty: 30 0RF Rx Instructions: until response Glucagon Emergency Kit (human) 1 mg recon soln 1 mg subcut DIRECTED ondansetron 4 mg tablet,disintegrating 4 mg PO Q8H PRN (Reason: nausea and vomiting) Qty: 10 0RF diphenhydramine HCl 50 mg Capsule 50 mg PO BEDTIME PRN (Reason: Sleep) Rx Instructions: for itching and sleep insulin aspart U-100 [Novolog FlexPen U-100 Insulin] 100 unit/mL (3 mL) insulin pen See Rx Instructions .ROUTE .COMPLEX Patient Comments: Inject 7-20 Units under the skin 3 (three) times a day with meals SLIDING scale Rx Instructions: 7-10 units at meals using sliding scale pantoprazole 40 mg tablet,delayed release (DR/EC) 40 mg PO BEDTIME Patient Comments: TAKE ONE TABLET BY MOUTH ONE TIME DAILY insulin degludec [Tresiba FlexTouch U-200] 200 unit/mL (3 mL) insulin pen 13 ea SUBCUT BID methocarbamol 500 mg tablet 1 tab PO TID Patient Comments: TAKE ONE TO TWO TABLETS BY MOUTH THREE TIMES DAILY NEEDED FOR MUSCLE SPASMS sennosides [senna] 8.6 mg Tablet 8.6 mg PO DAILY acetaminophen 325 mg Tablet 975 mg PO Q8H Qty: 30 0RF tramadol 50 mg Tablet 50 mg PO Q4H PRN (Reason: Pain, Moderate (4-6)) Qty: 15 0RF naloxone [Narcan] 4 mg/actuation spray,non-aerosol 1 spray intranasal Q2M Qty: 2 0RF Rx Instructions: spray 1 dose into ONE nostril; alternate nostrils w each dose until help arrives ondansetron 4 mg tablet,disintegrating 4 mg PO Q8H PRN (Reason: nausea and vomiting) Qty: 15 0RF valacyclovir [Valtrex] 1 gram tablet 1,000 mg PO TID Qty: 30 0RF Follow up/Referrals: Maria Ines Limon DO [Primary Care Provider] - Diet/Activity/Treatments Diet: Diet as Tolerated and Carb-consistent/Diabetic Activity: As tolerated Visit Report/Discharge Packet Stand Alone Forms: Patient Portal/API, Stroke Signs & Symptoms Discharge Data Primary Care Provider: Maria Ines Limon Quality VTE Deep Vein Thrombosis/Pulmonary Embolism Present on Admission: No
[2022-06-20 10:13] VITALS: BP 124/78; PULSE 89; RESP 22; TEMP 37.1; O2SAT 92
--- NOTE | 2022-06-21 08:57 | CM.DPNOTE ---
DC Note Late Entry MD cleared patient for return home 3.1.23, home w/mom and close outpatient follow up recommended. Patient at her functional baseline. Patient and family agreeable to plan. No needs identified from this CM team JW
== END 2022-06-20 10:13 | disposition home or self-care (01) | DRG 193 ==
LOC: ED 05:21 → AC 06:20 → ICU 11:45
PROVIDERS: Admitting Provider Nurse Practitioner Family; Emergency Provider Emergency Medicine; PCP Student in an Organized Health Care Education/Training Program; Referring Provider Emergency Medicine; Visit Provider Nurse Practitioner Family
DX: J15.9 Unspecified bacterial pneumonia (principal); I50.23 Acute on chronic systolic (congestive) heart failure; J96.01 Acute respiratory failure with hypoxia; J96.02 Acute respiratory failure with hypercapnia; N10 Acute pyelonephritis; E44.1 Mild protein-calorie malnutrition; E10.65 Type 1 diabetes mellitus with hyperglycemia; K21.9 Gastro-esophageal reflux disease without esophagitis; R74.01 Elevation of levels of liver transaminase levels; R60.9 Edema, unspecified; B95.61 Methicillin susceptible Staphylococcus aureus infection as the cause of diseases classified elsewhere; Z68.22 Body mass index [BMI] 22.0-22.9, adult; Z20.822 Contact with and (suspected) exposure to COVID-19
CPT/HCPCS: 0241U; 36415; 71045; 71275; 74177; 76705; 80053; 80074; 81003; 81015; 81025; 82009; 82550; 82805; 82962; 82977; 83036; 83605; 83690; 83735; 83880; 84145; 84484; 85007; 85025; 85379; 85610; 86850; 86900; 86901; 87040; 87077; 87081; 87086; 87147; 87186; 87797; 93306; 93356; 96365; 96367; 96375; 97162; 99285; J0696; J1170; J1200; J1642; J1815; J1940; J2405; J2930; Q9967

== ENCOUNTER 2022-06-23 19:16 | Emergency (ER) | payer OTHER, MEDICAID, SELFPAY ==
[2022-06-17 12:00] VITALS: BMI 21.3
[2022-06-23] VITALS (8 sets, daily range): BP systolic 127–169; BP diastolic 84–98; PULSE 87–96; RESP 10–18; TEMP 36.4–36.5; O2SAT 85–95; BMI 19.8
--- NOTE | 2022-06-23 19:20 | ED.SOB ---
HPI - SOB/Dyspnea General Chief Complaint: Chest Pain Stated Complaint: CP/SOB Time Seen by Provider: 06/23/22 19:19 History of Present Illness HPI Narrative: 32-year-old female nonsmoker with history of type 1 diabetes and frequent hospitalizations for DKA, recent hospitalization for CHF and pneumonia presents by EMS for evaluation of shortness of breath and shart, stabbing chest pain. She had been admitted to the hospital for 4 days and was discharged on 06/20. She had been feeling much better and was not discharged home on oxygen, at the time of discharge she reports she had pulse ox in the 92-93% range at the time of discharge, she was sent home on antibiotics and diuretics she is been taking her medications as directed. Her symptoms started over the past day or so. She is had no fever or chills but has complained of some nausea. She denies any vomiting. She is had no change in her diabetic regimen and states her sugars were in the 200s. On arrival EMS found her to be in respiratory distress with oxygen level in the low 80s, she was placed on 2 L by nasal cannula which improved her sats to the low 90s. Related Data Home Medications Medication Instructions Recorded Confirmed glucagon (human recombinant) 1 mg 1 mg SUBCUT DIRECTED 02/16/19 06/17/22 solution for injection (Glucagon Emergency Kit) diphenhydramine HCl 50 mg capsule 50 mg PO BEDTIME PRN Sleep 09/29/20 06/17/22 insulin aspart U-100 100 unit/mL See Rx Instructions .Route .COMPLEX 11/13/21 11/29/21 (3 mL) subcutaneous pen (Novolog FlexPen U-100 Insulin aspart) insulin degludec 200 unit/mL (3 13 ea SUBCUT BID 11/13/21 11/29/21 mL) subcutaneous pen (Tresiba FlexTouch U-200 insulin) methocarbamol 500 mg tablet 1 tab PO TID 11/13/21 06/17/22 pantoprazole 40 mg tablet,delayed 40 mg PO BEDTIME 11/13/21 06/17/22 release sennosides 8.6 mg tablet (senna) 8.6 mg PO DAILY 11/13/21 06/17/22 Previous Rx's Medication Instructions Recorded glucose 4 gram chewable tablet 4 gram PO Q15M PRN hypoglycemia 12/12/18 #30 tabs ondansetron 4 mg disintegrating 4 mg PO Q8H PRN nausea and 11/08/21 tablet vomiting #10 tabs acetaminophen 325 mg tablet 975 mg PO Q8H #30 tabs 11/18/21 naloxone 4 mg/actuation nasal 1 spray intranasal Q2M #2 ea 11/18/21 spray (Narcan) tramadol 50 mg tablet 50 mg PO Q4H PRN Pain, Moderate 11/18/21 (4-6) #15 tabs ondansetron 4 mg disintegrating 4 mg PO Q8H PRN nausea and 03/18/22 tablet vomiting #15 tabs valacyclovir 1 gram tablet 1,000 mg PO TID #30 tabs 03/18/22 (Valtrex) doxycycline hyclate 100 mg tablet 100 mg PO BID 4 days #8 tabs 06/20/22 furosemide 20 mg tablet 20 mg PO DAILY 30 days #30 tabs 06/20/22 losartan 25 mg tablet 25 mg PO DAILY 30 days #30 tabs 06/20/22 metoprolol tartrate 25 mg tablet 25 mg PO BID 30 days #60 tabs 06/20/22 Allergies Allergy/AdvReac Type Severity Reaction Status Date / Time arredondo [ARREDONDO] Allergy Intermediate Hives, Verified 01/10/22 09:24 pruritus iodine [IODINE] Allergy Intermediate rash, itchy Verified 01/10/22 09:24 morphine Allergy Intermediate Difficulty Verified 01/10/22 09:24 Breathing shellfish derived Allergy Intermediate rash Verified 01/10/22 09:24 [SHELLFISH DERIVED] adhesive [ADHESIVE] Allergy Unknown tape Verified 01/10/22 09:24 latex [LATEX] Allergy Unknown Hives Verified 01/10/22 09:24 Review of Systems Review of Systems Narrative: GENERAL: See HPI HEENT: Denies sinus pain, ear pain, sore throat, difficulty swallowing, dizziness. RESPIRATORY: See HPI CARDIOVASCULAR: See HPI GASTROINTESTINAL: See HPI. : Denies dysuria, frequency, incontinence, hematuria, urinary retention. MUSCULOSKELETAL: denies weakness, joint pain, or bony pain SKIN: Denies rash, skin lesions, or other NEUROLOGIC: Denies weakness, headache, numbness, change in speech, confusion, seizures, incoordination. PSYCHIATRIC: No concerning psychosocial issues. 12 point review of systems is negative except for those stated above Patient History Medical History DKA (diabetic ketoacidoses) History of pyelonephritis Irregular menstrual cycle Migraine headache Nephrolithiasis Noncompliance w/medication treatment due to intermit use of medication Type 1 diabetes mellitus Surgical History History of ureter stent Hx of cataract surgery Hx of local excision of skin lesion Status post cholecystectomy Status post laser lithotripsy of ureteral calculus [place] teeth extracted Family History Father In good health Mother Cardiac disease Social History details: Engaged household members: family Smoking Status: Never smoker alcohol intake: never Smoking Status: Never smoker alcohol intake frequency: holidays/special occasions only Substance Use Type: does not use Exam Narrative Exam Narrative: GENERAL: [32] year old patient appears stated age. Ill-appearing, no significant increased work of breathing, nasal cannula in place HEAD: Atraumatic. Normocephalic. EYES: Pupils equal round and reactive. Extraocular motions intact. No scleral icterus. No injection or drainage. ENT: Nose without bleeding, purulent drainage. Throat without erythema, tonsillar hypertrophy or exudate. Airway patent. NECK: Trachea midline. Non tender CARDIOVASCULAR: Regular rate and rhythm without murmurs, gallops, or rubs. RESPIRATORY: No tachypnea, use of accessory muscles, oxygen on as noted, crackles in bilateral bases GASTROINTESTINAL: Abdomen soft, non-tender, nondistended. EXTREMITIES: No edema or joint tenderness. BACK: Nontender without deformity or crepitance. No flank tenderness. NEURO: AOx3. SKIN: No rash or erythema of visible areas Initial Vital Signs Initial Vital Signs: Vital Signs Temperature 97.6 F 06/23/22 19:27 Pulse Rate 96 H 06/23/22 19:27 Respiratory Rate 18 06/23/22 19:27 Blood Pressure 163/98 H 06/23/22 19:27 Pulse Oximetry 85 L 06/23/22 19:27 Oxygen Delivery Method Room Air 06/23/22 19:27 Course Orders Ordered: ED Orders 06/23/22 19:23 Respiratory Panel (Film Array) Stat 06/23/22 19:24 Chest [XR chest 1V] Stat Blood Culture Stat EKG-12 Lead Stat 06/23/22 19:32 Arterial Blood Gas Stat 06/23/22 19:45 Complete Blood Count AUTO DIFF Stat Comprehensive Metabolic Panel Stat Ketones (Beta-Hydroxybutyrate) Stat Lactate (Lactic Acid) Stat Lipase Stat Magnesium Stat NT-proBNP (BNP-Adult 18+) Stat Procalcitonin Stat Troponin & CK Cardiac Panel Stat Discontinued Medications Furosemide (Furosemide 40 Mg/4 Ml Vial) 40 mg IV NOW ONE Stop: 06/23/22 19:25 Last Admin: 06/23/22 19:49 Dose: 40 mg Documented By: GC Ketorolac Tromethamine (Ketorolac 30 Mg/Ml Vial) 15 mg IV NOW ONE Stop: 06/23/22 19:25 Last Admin: 06/23/22 19:49 Dose: 15 mg Documented By: LAZARO Reevaluation(s) Reevaluation #1: Patient feeling much better after above-stated therapies. She is been off supplemental oxygen now for about 40 minutes and is routinely stay in the 92-94% range, on occasion, when coughing she dips into 88-89% range but quickly bounces back up. Her pain is greatly improved Vital Signs Vital signs: Vital Signs - 8 hr 06/23/22 19:27 06/23/22 19:39 06/23/22 20:00 Temperature 97.6 F Pulse Rate 96 H 93 H Respiratory Rate 18 12 Blood Pressure 163/98 H 135/91 H Pulse Oximetry 85 L 94 Oxygen Delivery Method Room Air Oxygen Flow Rate 06/23/22 20:00 06/23/22 20:30 06/23/22 20:30 Temperature Pulse Rate 89 87 Respiratory Rate 13 12 Blood Pressure 134/89 Pulse Oximetry 95 95 Oxygen Delivery Method Nasal Cannula Oxygen Flow Rate 2 06/23/22 21:00 06/23/22 21:00 06/23/22 21:30 Temperature Pulse Rate 89 Respiratory Rate 11 L Blood Pressure 127/84 149/90 H Pulse Oximetry 92 Oxygen Delivery Method Room Air Oxygen Flow Rate 06/23/22 21:30 Temperature Pulse Rate 88 Respiratory Rate 10 L Blood Pressure Pulse Oximetry 91 Oxygen Delivery Method Room Air Oxygen Flow Rate MDM - SOB/Dyspnea Lab Data 06/23/22 19:45 06/23/22 19:45 Labs: Lab Results 06/23/22 06/23/22 06/23/22 Range/Units 19:23 19:32 19:45 WBC 17.3 H (4.5-11.0) X10^3/uL RBC 4.40 (4.0-5.2) X10^6/uL Hgb 11.6 L (12.0-16.0) g/dL Hct 37.1 (36-46) % MCV 84.4 (80-100) fL MCH 26.4 (26-34) PG MCHC 31.3 (30-36) % RDW 14.4 (11.6-14.8) % Plt Count 583 H (150-400) X10^3/uL Neut % (Auto) 76.0 H (50-75) % Lymph % (Auto) 12.5 L (25-40) % [place] % (Auto) 5.9 (3-14) % Eos % (Auto) 4.4 H (2-4) % Baso % (Auto) 1.2 (0-2) % Neut # (Auto) 57015 H (8664-1846) /uL Lymph # (Auto) 2200 (6437-4044) /uL [place] # (Auto) 1000 H (0-900) /uL Eos # (Auto) 800 H (0-450) /uL Baso # (Auto) 200 H (0-100) /uL ABG pH 7.46 H (7.35-7.45) ABG pCO2 40.1 (35-45) mmHg ABG pO2 80 (80-100) mmHg ABG HCO3 29 H (23-27) mmol/L ABG Total CO2 30 H (23-27) mmol/L ABG O2 Saturation 96 (95-100) % ABG Base Excess 5.0 H (-2-3) mmol/L FiO2 28 Sodium (137-145) mmol/L Potassium (3.4-5.1) mmol/L Chloride (98-107) mmol/L Carbon Dioxide (22-32) mmol/L BUN (7-17) mg/dL Creatinine (0.52-1.04) mg/dL Estimated GFR (>60) mL/min BUN/Creatinine Ratio (6-22) Glucose (70-100) mg/dL Lactate (0.7-2.1) mmol/L Calcium (8.4-10.2) mg/dL Magnesium (1.6-2.3) mg/dL Total Bilirubin (0.2-1.3) mg/dL AST (14-36) IU/L ALT (<35) IU/L Alkaline Phosphatase (38-126) U/L Total Creatine Kinase (30-135) U/L CK-MB (CK-2) CK-MB (CK-2) Rel Index Troponin I (0.01-0.034) ng/mL NT-Pro-B Natriuret Pep (<125) pg/mL Total Protein (6.3-8.2) g/dL Albumin (3.5-5.0) g/dL Globulin (1.7-4.1) g/dL Albumin/Globulin Ratio (1.0-2.8) Lipase (23-300) U/L Procalcitonin (<0.5) ng/mL Ketones (<0.27) mmol/L Chlamy pneumoniae PCR Not detected (Not Detect) Adenovirus (PCR) Not detected (Not Detect) B. pertussis DNA (PCR) Not detected (Not Detecte) B.parapertussis DNA PCR Not detected (Not Detecte) Coronavirus OC43 (PCR) Not detected (Not Detect) Coronavirus HKU1 (PCR) Not detected (Not Detect) Coronavirus 229E (PCR) Not detected (Not Detect) SARS-CoV-2 (PCR) Not detected (Not Detecte) Coronavirus NL63 (PCR) Not detected (Not Detect) Human Metapneumovir PCR Not detected (Not Detect) Influenza Type A (PCR) Not detected (Not Detect) Influenza Type B (PCR) Not detected (Not Detect) M. pneumoniae (PCR) Not detected (Not Detect) Parainfluenza 1 (PCR) Not detected (Not Detect) Parainfluenza 2 (PCR) Not detected (Not Detect) Parainfluenza 3 (PCR) Not detected (Not Detect) Parainfluenza 4 (PCR) Not detected (Not Detect) RSV (PCR) Not detected (Not Detect) Entero/Rhino (PCR) Not detected (Not Detect) 06/23/22 06/23/22 Range/Units 19:45 19:45 WBC (4.5-11.0) X10^3/uL RBC (4.0-5.2) X10^6/uL Hgb (12.0-16.0) g/dL Hct (36-46) % MCV (80-100) fL MCH (26-34) PG MCHC (30-36) % RDW (11.6-14.8) % Plt Count (150-400) X10^3/uL Neut % (Auto) (50-75) % Lymph % (Auto) (25-40) % [place] % (Auto) (3-14) % Eos % (Auto) (2-4) % Baso % (Auto) (0-2) % Neut # (Auto) (7583-6533) /uL Lymph # (Auto) (9842-7988) /uL [place] # (Auto) (0-900) /uL Eos # (Auto) (0-450) /uL Baso # (Auto) (0-100) /uL ABG pH (7.35-7.45) ABG pCO2 (35-45) mmHg ABG pO2 (80-100) mmHg ABG HCO3 (23-27) mmol/L ABG Total CO2 (23-27) mmol/L ABG O2 Saturation (95-100) % ABG Base Excess (-2-3) mmol/L FiO2 Sodium 134 L (137-145) mmol/L Potassium 4.5 (3.4-5.1) mmol/L Chloride 100 (98-107) mmol/L Carbon Dioxide 30 (22-32) mmol/L BUN 38 H (7-17) mg/dL Creatinine 0.62 (0.52-1.04) mg/dL Estimated GFR > 60 (>60) mL/min BUN/Creatinine Ratio 61.3 H (6-22) Glucose 302 H D (70-100) mg/dL Lactate 1.8 (0.7-2.1) mmol/L Calcium 8.4 (8.4-10.2) mg/dL Magnesium 1.7 (1.6-2.3) mg/dL Total Bilirubin 0.4 (0.2-1.3) mg/dL AST 26 (14-36) IU/L ALT 26 (<35) IU/L Alkaline Phosphatase 346 H (38-126) U/L Total Creatine Kinase 50 (30-135) U/L CK-MB (CK-2) TNP CK-MB (CK-2) Rel Index TNP Troponin I < 0.012 (0.01-0.034) ng/mL NT-Pro-B Natriuret Pep 1770 H (<125) pg/mL Total Protein 6.6 (6.3-8.2) g/dL Albumin 3.2 L (3.5-5.0) g/dL Globulin 3.4 (1.7-4.1) g/dL Albumin/Globulin Ratio 0.9 L (1.0-2.8) Lipase 91 D (23-300) U/L Procalcitonin 0.09 (<0.5) ng/mL Ketones 0.04 (<0.27) mmol/L Chlamy pneumoniae PCR (Not Detect) Adenovirus (PCR) (Not Detect) B. pertussis DNA (PCR) (Not Detecte) B.parapertussis DNA PCR (Not Detecte) Coronavirus OC43 (PCR) (Not Detect) Coronavirus HKU1 (PCR) (Not Detect) Coronavirus 229E (PCR) (Not Detect) SARS-CoV-2 (PCR) (Not Detecte) Coronavirus NL63 (PCR) (Not Detect) Human Metapneumovir PCR (Not Detect) Influenza Type A (PCR) (Not Detect) Influenza Type B (PCR) (Not Detect) M. pneumoniae (PCR) (Not Detect) Parainfluenza 1 (PCR) (Not Detect) Parainfluenza 2 (PCR) (Not Detect) Parainfluenza 3 (PCR) (Not Detect) Parainfluenza 4 (PCR) (Not Detect) RSV (PCR) (Not Detect) Entero/Rhino (PCR) (Not Detect) ECG Data Interpretation: 192 EKG is normal sinus rhythm rate [ 96] and free of any signs of ischemia or ectopy. No ST segmental elevation or depression. No T wave inversions MDM Narrative Medical decision making narrative: CC: 32-year-old female with sharp anterior chest pain and flow oxygen Complicating co-morbidities: CHF, brittle diabetic, recent hospitalization for pneumonia Data collected from: Patient Medical records reviewed: Prior notes reviewed in our EMR Differential considered, but not limited to: Costochondritis, pleurisy, pneumonia, CHF versus other Exam documented above, pertinent findings include: No significant work of breathing, clearly sharp pain is reproducible by deep breath, faint crackles in bilateral bases, hypoxemia rapidly improves. Well-hydrated, abdomen soft, patient alert and oriented Lab Test results independently reviewed as above. Pertinent findings: Patient does a bit of a leukocytosis again with a relative left shift. Electrolytes and renal function within normal limits, BNP elevated though better than hospitalization. Independently reviewed EKG as above Imaging studies independently reviewed: Chest x-ray still shows possible infiltrate but definitely improved over hospitalization Treatments: Lasix, Toradol Re-evaluations: Significant improvement as noted above Discussion: Brittle diabetic presents with atypical chest pain and hypoxemia, arriving on a few L of oxygen by nasal cannula. She is given Toradol in Lasix and has significant improvement in her pain and quickly he is able to come off of supplemental oxygen. Her labs have been repeated his and by and large moving in the right direction. There is no evidence of DKA, ABGs reassuring. Chest x-ray improved. Largely a very reassuring evaluation, she is been instructed to take an extra Lasix daily for the next few days, she has an appointment with her primary care provider on Saturday. She and mother both understand return precautions, they understand the diagnosis and plan and are in agreement. Disposition: see below, along with detailed discharge instructions that have been reviewed with patient as well as indications for ED re-evaluation and additional outpatient follow up Discharge Plan Departure Patient Disposition: Home Clinical Impression: Atypical chest pain, CHF (congestive heart failure) Instructions: DI for Atypical Chest Pain Activity Restrictions/Additional Instructions: *You have been diagnosed with [atypical chest pain and mild pulmonary edema] *What to do: * as we discussed, please take an extra Lasix daily for the next 4 days and then returned to normal dosing. Otherwise, Please continue to take your regular medications as directed. [ ] New medication prescriptions sent to your pharmacy: [ ] [ ] New medication written as a paper prescription [ ] No new medications given *Please follow up with your primary care provider in 2-3 days, call for an appointment. Let them know you were seen in the Emergency Department and that we ask that you be seen in follow up. We will electronically transmit a record of today's note if your PCP is in our system *Return to Emergency Department if you should have any new, worsening or concerning symptoms, such as [fever greater than 101 F, shaking chills, worsening pain, persistent vomiting or other bothersome symptoms] Prescriptions: No Action glucose 4 gram tablet,chewable 4 gram PO Q15M PRN (Reason: hypoglycemia) Qty: 30 0RF Rx Instructions: until response Glucagon Emergency Kit (human) 1 mg recon soln 1 mg subcut DIRECTED ondansetron 4 mg tablet,disintegrating 4 mg PO Q8H PRN (Reason: nausea and vomiting) Qty: 10 0RF losartan 25 mg Tablet 25 mg PO DAILY 30 Days Qty: 30 0RF doxycycline hyclate 100 mg Tablet 100 mg PO BID 4 Days Qty: 8 0RF metoprolol tartrate 25 mg Tablet 25 mg PO BID 30 Days Qty: 60 0RF furosemide 20 mg tablet 20 mg PO DAILY 30 Days Qty: 30 0RF diphenhydramine HCl 50 mg Capsule 50 mg PO BEDTIME PRN (Reason: Sleep) Rx Instructions: for itching and sleep insulin aspart U-100 [Novolog FlexPen U-100 Insulin] 100 unit/mL (3 mL) insulin pen See Rx Instructions .ROUTE .COMPLEX Patient Comments: Inject 7-20 Units under the skin 3 (three) times a day with meals SLIDING scale Rx Instructions: 7-10 units at meals using sliding scale pantoprazole 40 mg tablet,delayed release (DR/EC) 40 mg PO BEDTIME Patient Comments: TAKE ONE TABLET BY MOUTH ONE TIME DAILY insulin degludec [Tresiba FlexTouch U-200] 200 unit/mL (3 mL) insulin pen 13 ea SUBCUT BID methocarbamol 500 mg tablet 1 tab PO TID Patient Comments: TAKE ONE TO TWO TABLETS BY MOUTH THREE TIMES DAILY NEEDED FOR MUSCLE SPASMS sennosides [senna] 8.6 mg Tablet 8.6 mg PO DAILY acetaminophen 325 mg Tablet 975 mg PO Q8H Qty: 30 0RF tramadol 50 mg Tablet 50 mg PO Q4H PRN (Reason: Pain, Moderate (4-6)) Qty: 15 0RF naloxone [Narcan] 4 mg/actuation spray,non-aerosol 1 spray intranasal Q2M Qty: 2 0RF Rx Instructions: spray 1 dose into ONE nostril; alternate nostrils w each dose until help arrives ondansetron 4 mg tablet,disintegrating 4 mg PO Q8H PRN (Reason: nausea and vomiting) Qty: 15 0RF valacyclovir [Valtrex] 1 gram tablet 1,000 mg PO TID Qty: 30 0RF Referrals: Maria Ines Limon DO [Primary Care Provider] - Stand Alone Forms: Patient Portal/API
--- NOTE | 2022-06-23 19:24 | DI.RAD.S_ITS ---
PROCEDURE: XR CHEST 1V INDICATIONS: SOB TECHNIQUE: One view of the chest was acquired. COMPARISON: [facility], CR, XR CHEST 1V, 06/17/2022, 12:23. FINDINGS: Surgical changes and devices: None. Lungs and pleura: Mild increased interstitial opacities decreased compared to prior exam. Mediastinum: Mediastinal contours appear normal. Heart size is normal. Bones and chest wall: No suspicious bony lesions. Overlying soft tissues appear unremarkable. IMPRESSION: Persistent although decreased appearance of interstitial opacities which could be related to pneumonia and/or atelectasis. Dictated by: Alejandra Sanchez M.D. on 06/23/2022 at 19:53 Approved by: Alejandra Sanchez M.D. on 06/23/2022 at 19:54
[2022-06-23 19:49] LABS: Add Manual Diff / Slide Review NO; Basophils Absolute Auto 200 /uL (0-100); Basophils Percent Auto 1.2 % (0-2); Eosinophils Absolute Auto 800 /uL (0-450); Eosinophils Percent Auto 4.4 % (2-4); Hematocrit 37.1 % (36-46); Hemoglobin 11.6 g/dL (12.0-16.0); Lymphocytes Absolute Auto 2200 /uL (1100-4500); Lymphocytes Percent Auto 12.5 % (25-40); Mean Corpuscular HGB Conc 31.3 % (30-36); Mean Corpuscular Hemoglobin 26.4 PG (26-34); Mean Corpuscular Volume 84.4 fL (80-100); Monocytes Absolute Auto 1000 /uL (0-900); Monocytes Percent Auto 5.9 % (3-14); Neutrophils Absolute Auto 13200 /uL (1500-7000); Platelet Count 583 X10^3/uL (150-400); Red Cell Distribution Width 14.4 % (11.6-14.8); White Blood Cell Count 17.3 X10^3/uL (4.5-11.0)
[2022-06-23] MEDS: KETOROLAC 30 MG/ML VIAL 15 MG IV (19:49)
[2022-06-23] MEDS: FUROSEMIDE 40 MG/4 ML VIAL IV (19:49)
[2022-06-23 19:57] LABS: Alanine Aminotransferase 26 IU/L (<35); Albumin 3.2 g/dL (3.5-5.0); Albumin Globulin Ratio 0.9 (1.0-2.8); Alkaline Phosphatase 346 U/L (38-126); Aspartate Aminotransferase 26 IU/L (14-36); BUN Creatinine Ratio 61.3 (6-22); Bilirubin Total 0.4 mg/dL (0.2-1.3); Blood Urea Nitrogen 38 mg/dL (7-17); Calcium 8.4 mg/dL (8.4-10.2); Carbon Dioxide 30 mmol/L (22-32); Chloride 100 mmol/L (98-107); Creatine Kinase 50 U/L (30-135); Estimated Glomerular Filt Rate > 60 mL/min (>60); Globulin 3.4 g/dL (1.7-4.1); Glucose 302 mg/dL (70-100); HEMOLYSIS 47 (0-50); Lipase 91 U/L (23-300); Magnesium 1.7 mg/dL (1.6-2.3); Potassium 4.5 mmol/L (3.4-5.1); Sodium 134 mmol/L (137-145); Total Protein 6.6 g/dL (6.3-8.2)
[2022-06-23 19:58] LABS: Lactate (Lactic Acid) 1.8 mmol/L (0.7-2.1)
[2022-06-23 20:01] LABS: Ketones (Beta-Hydroxybutyrate) 0.04 mmol/L (<0.27)
[2022-06-23 20:14] LABS: NT-proBNP (BNP-Adult 18+) 1770 pg/mL (<125); Troponin I < 0.012 ng/mL (0.01-0.034)
[2022-06-23 20:18] LABS: Procalcitonin 0.09 ng/mL (<0.5)
[2022-06-23 20:28] LABS: pH ABG 7.46 (7.35-7.45)
[2022-06-23 20:29] LABS: Fractionated Inspired Oxygen 28; HCO3 ABG 29 mmol/L (23-27); Oxygen Saturation ABG 96 % (95-100); PCO2 ABG 40.1 mmHg (35-45); PO2 ABG 80 mmHg (80-100); TCO2 ABG 30 mmol/L (23-27)
[2022-06-23 20:34] LABS: Adenovirus Not Detected (Not Detect); B. parapertussis Not Detected (Not Detecte); Bordetella pertussis Not Detected (Not Detecte); Chlamydophila pneumoniae Not Detected (Not Detect); Coronavirus 229E Not Detected (Not Detect); Coronavirus HKU1 Not Detected (Not Detect); Coronavirus NL 63 Not Detected (Not Detect); Coronavirus OC43 Not Detected (Not Detect); Human Metapneumovirus Not Detected (Not Detect); Human Rhinovirus/Enterovirus Not Detected (Not Detect); Influenza A Not Detected (Not Detect); Influenza B Not Detected (Not Detect); Mycoplasma pneumoniae Not Detected (Not Detect); Parainfluenza Virus 1 Not Detected (Not Detect); Parainfluenza Virus 2 Not Detected (Not Detect); Parainfluenza Virus 3 Not Detected (Not Detect); Parainfluenza Virus 4 Not Detected (Not Detect); Respiratory Syncytial Virus Not Detected (Not Detect); SARS- CoV-2 Not Detected (Not Detecte)
== END 2022-06-23 22:10 | disposition home or self-care (01) ==
PROVIDERS: Emergency Provider Emergency Medicine; PCP Student in an Organized Health Care Education/Training Program
DX: R07.89 Other chest pain (principal); I50.9 Heart failure, unspecified; R09.02 Hypoxemia; Z20.822 Contact with and (suspected) exposure to COVID-19
CPT/HCPCS: 36415; 36600; 71045; 80053; 82009; 82550; 82805; 83605; 83690; 83735; 83880; 84145; 84484; 85025; 87040; 87633; 93005; 96374; 96375; 99284; J1885; J1940

== ENCOUNTER 2022-06-27 19:48 | Emergency (ER) | payer OTHER, MEDICAID, SELFPAY ==
[2022-06-17 12:00] VITALS: BMI 21.3
[2022-06-27] VITALS (13 sets, daily range): BP systolic 153–185; BP diastolic 87–107; PULSE 91–99; RESP 11–18; TEMP 36.9; O2SAT 91–96; BMI 20.2
--- NOTE | 2022-06-27 20:08 | ED.GENADULT ---
HPI - General Adult General Chief complaint: Shortness of Breath/Dyspnea Stated complaint: Low Sats Time Seen by Provider: 06/27/22 20:02 Source: patient and family Mode of arrival: EMS Limitations: no limitations History of Present Illness HPI narrative: Patient is a 32-year-old female. She is well known to myself. 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 She arrives in the emergency department today for evaluation of hypoxia. EMS was called by family members after the patient's mother checked her oxygen saturations at home and found her in the low 70s. She is been sleeping today. She was recently admitted to the hospital for pneumonia. Was found to also have a diagnosis of CHF. Was placed on Lasix. Is also placed on antibiotics. She is since completed that course. She has been to the emergency department since that time for symptoms that are very similar to which presents with today. She was given diuresis and eventually discharged from the emergency department. Here she states she is having some shortness of breath. No chest pain. Is having back pain is well but this is normal for her. Same with some abdominal pain. Nausea but no vomiting. Related Data Home Medications Medication Instructions Recorded Confirmed glucagon (human recombinant) 1 mg 1 mg SUBCUT DIRECTED 02/16/19 06/17/22 solution for injection (Glucagon Emergency Kit) diphenhydramine HCl 50 mg capsule 50 mg PO BEDTIME PRN Sleep 09/29/20 06/17/22 insulin aspart U-100 100 unit/mL See Rx Instructions .Route .COMPLEX 11/13/21 11/29/21 (3 mL) subcutaneous pen (Novolog FlexPen U-100 Insulin aspart) insulin degludec 200 unit/mL (3 13 ea SUBCUT BID 11/13/21 11/29/21 mL) subcutaneous pen (Tresiba FlexTouch U-200 insulin) methocarbamol 500 mg tablet 1 tab PO TID 11/13/21 06/17/22 pantoprazole 40 mg tablet,delayed 40 mg PO BEDTIME 11/13/21 06/17/22 release sennosides 8.6 mg tablet (senna) 8.6 mg PO DAILY 11/13/21 06/17/22 Previous Rx's Medication Instructions Recorded glucose 4 gram chewable tablet 4 gram PO Q15M PRN hypoglycemia 12/12/18 #30 tabs ondansetron 4 mg disintegrating 4 mg PO Q8H PRN nausea and 11/08/21 tablet vomiting #10 tabs acetaminophen 325 mg tablet 975 mg PO Q8H #30 tabs 11/18/21 naloxone 4 mg/actuation nasal 1 spray intranasal Q2M #2 ea 11/18/21 spray (Narcan) tramadol 50 mg tablet 50 mg PO Q4H PRN Pain, Moderate 11/18/21 (4-6) #15 tabs ondansetron 4 mg disintegrating 4 mg PO Q8H PRN nausea and 03/18/22 tablet vomiting #15 tabs valacyclovir 1 gram tablet 1,000 mg PO TID #30 tabs 03/18/22 (Valtrex) furosemide 20 mg tablet 20 mg PO DAILY 30 days #30 tabs 06/20/22 losartan 25 mg tablet 25 mg PO DAILY 30 days #30 tabs 06/20/22 metoprolol tartrate 25 mg tablet 25 mg PO BID 30 days #60 tabs 06/20/22 Allergies Allergy/AdvReac Type Severity Reaction Status Date / Time abdalla [ABDALLA] Allergy Intermediate Hives, Verified 06/27/22 20:07 pruritus iodine [IODINE] Allergy Intermediate rash, itchy Verified 06/27/22 20:07 morphine Allergy Intermediate Difficulty Verified 06/27/22 20:07 Breathing shellfish derived Allergy Intermediate rash Verified 06/27/22 20:07 [SHELLFISH DERIVED] adhesive [ADHESIVE] Allergy Unknown tape Verified 06/27/22 20:07 latex [LATEX] Allergy Unknown Hives Verified 06/27/22 20:07 Review of Systems Review of Systems ROS Unobtainable: All systems reviewed & are unremarkable except as noted in HPI and below Patient History Medical History DKA (diabetic ketoacidoses) History of pyelonephritis Irregular menstrual cycle Migraine headache Nephrolithiasis Noncompliance w/medication treatment due to intermit use of medication Type 1 diabetes mellitus Surgical History History of ureter stent Hx of cataract surgery Hx of local excision of skin lesion Status post cholecystectomy Status post laser lithotripsy of ureteral calculus [place] teeth extracted Family History Father In good health Mother Cardiac disease Social History details: Engaged household members: family Smoking Status: Never smoker alcohol intake: never Smoking Status: Never smoker alcohol intake frequency: holidays/special occasions only Substance Use Type: does not use Exam Initial Vital Signs Initial Vital Signs: Vital Signs Pulse Rate 99 H 06/27/22 19:54 Pulse Oximetry 96 06/27/22 19:54 Const General: cooperative HENMT Head: normal to inspection and normocephalic Resp Effort & Inspection: not labored, no respiratory distress, no retractions and not tachypneic Cardio Rate: regular rate Rhythm: regular rhythm GI Inspection: normal to inspection Palpation: soft and No tender Skin General: no rashes or lesions noted Neuro General: patient alert, patient awake and moves all extremities Extrem General: capillary refill normal Psych Appearance: grossly normal Course Orders Ordered: ED Orders 06/27/22 20:11 XR chest 1V Stat EKG-12 Lead Stat 06/27/22 20:19 Complete Blood Count AUTO DIFF Stat Comprehensive Metabolic Panel Stat Ethanol (ETOH) Stat Ketones (Beta-Hydroxybutyrate) Stat Lactate (Lactic Acid) Stat Lipase Stat Magnesium Stat NT-proBNP (BNP-Adult 18+) Stat Phosphorous Stat Test Serum,Qual Stat Procalcitonin Stat Respiratory Panel (Film Array) Stat 06/27/22 20:33 Blood Culture Stat 06/27/22 21:19 CT angio chest PE protocol Stat 06/28/22 00:53 Urinalysis and Microscopic Stat Urine Drug Screen, Rapid Stat Discontinued Medications Diphenhydramine HCl (Diphenhydramine 50 Mg/Ml Vial) 25 mg IV NOW ONE Stop: 06/27/22 21:20 Last Admin: 06/27/22 21:27 Dose: 25 mg Documented By: MARYANNE Furosemide (Furosemide 40 Mg/4 Ml Vial) 40 mg IV NOW ONE Stop: 06/27/22 23:45 Last Admin: 06/27/22 23:55 Dose: 40 mg Documented By: MARYANNE Hydromorphone HCl (Hydromorphone 0.5 Mg Inj) 0.5 mg IV NOW ONE Stop: 06/27/22 21:20 Last Admin: 06/27/22 21:27 Dose: 0.5 mg Documented By: MARYANNE Sodium Chloride (Normal Saline 0.9%) 1,000 mls @ 125 mls/hr IV CONT BLAISE Last Infusion: 06/28/22 00:29 Dose: 0 mls/hr Documented By: Infusion: 06/28/22 00:10 Dose: 125 mls/hr Documented By: Admin: 06/27/22 20:30 Dose: 125 mls/hr Documented By: MARYANNE Insulin Human Lispro (Insulin Lispro 100 Unit/Ml 3ml Vial) 5 unit SUBCUT NOW ONE Stop: 06/28/22 02:39 Last Admin: 06/28/22 02:42 Dose: 5 unit Documented By: MARYANNE Co-signed By: TORI Ketorolac Tromethamine (Ketorolac 30 Mg/Ml Vial) 30 mg IV NOW ONE Stop: 06/27/22 23:45 Last Admin: 06/27/22 23:56 Dose: 30 mg Documented By: MARYANNE Methylprednisolone (Methylprednisolone 125 Mg/2 Ml Vial) 125 mg IV NOW ONE Stop: 06/27/22 21:20 Last Admin: 06/27/22 21:27 Dose: 125 mg Documented By: MARYANNE Vital Signs Vital signs: Vital Signs - 8 hr 06/27/22 21:30 06/27/22 21:30 06/27/22 21:58 Pulse Rate 93 H 95 H Respiratory Rate 14 13 Blood Pressure 161/94 H Pulse Oximetry 94 92 06/27/22 21:58 06/27/22 22:00 06/27/22 22:00 Pulse Rate 93 H Respiratory Rate 11 L Blood Pressure 158/88 H 156/87 H Pulse Oximetry 93 06/27/22 22:30 06/27/22 22:30 06/27/22 23:00 Pulse Rate 92 H Respiratory Rate 18 Blood Pressure 157/89 H 168/90 H Pulse Oximetry 94 06/27/22 23:00 06/27/22 23:30 06/27/22 23:30 Pulse Rate 92 H 92 H Respiratory Rate 17 11 L Blood Pressure 185/107 H Pulse Oximetry 92 91 06/27/22 23:33 06/27/22 23:33 06/28/22 00:00 Pulse Rate 93 H 93 H Respiratory Rate 15 17 Blood Pressure 163/89 H Pulse Oximetry 92 92 06/28/22 00:07 06/28/22 00:07 06/28/22 00:30 Pulse Rate 93 H Respiratory Rate 13 Blood Pressure 174/93 H 163/95 H Pulse Oximetry 89 L 06/28/22 00:30 06/28/22 01:04 06/28/22 01:30 Pulse Rate 95 H 95 H Respiratory Rate 17 Blood Pressure 134/87 Pulse Oximetry 90 L 93 06/28/22 01:30 06/28/22 02:00 06/28/22 02:00 Pulse Rate 92 H 91 H Respiratory Rate 13 13 Blood Pressure 144/87 H Pulse Oximetry 93 93 06/28/22 02:30 06/28/22 02:30 Pulse Rate 90 Respiratory Rate 14 Blood Pressure 152/94 H Pulse Oximetry 92 Medical Decision Making Medical Records Medical records reviewed: Yes I reviewed the patient's medical records. Lab Data Lab results reviewed: Yes I reviewed the patient's lab results. 06/27/22 20:19 06/27/22 20:19 Labs: Lab Results 06/27/22 06/27/22 06/27/22 Range/Units 20:19 20:19 20:19 WBC 17.3 H (4.5-11.0) X10^3/uL RBC 4.28 (4.0-5.2) X10^6/uL Hgb 11.4 L (12.0-16.0) g/dL Hct 36.5 (36-46) % MCV 85.3 (80-100) fL MCH 26.6 (26-34) PG MCHC 31.2 (30-36) % RDW 14.3 (11.6-14.8) % Plt Count 510 H (150-400) X10^3/uL Neut % (Auto) 79.6 H (50-75) % Lymph % (Auto) 9.8 L (25-40) % [place] % (Auto) 5.3 (3-14) % Eos % (Auto) 4.5 H (2-4) % Baso % (Auto) 0.8 (0-2) % Neut # (Auto) 67324 H (4198-4589) /uL Lymph # (Auto) 1700 (2291-3937) /uL [place] # (Auto) 900 (0-900) /uL Eos # (Auto) 800 H (0-450) /uL Baso # (Auto) 100 (0-100) /uL Sodium 133 L (137-145) mmol/L Potassium 5.5 H (3.4-5.1) mmol/L Chloride 97 L (98-107) mmol/L Carbon Dioxide 30 (22-32) mmol/L BUN 40 H (7-17) mg/dL Creatinine 0.97 (0.52-1.04) mg/dL Estimated GFR > 60 (>60) mL/min BUN/Creatinine Ratio 41.2 H (6-22) Glucose 518 H* D (70-100) mg/dL Lactate 0.9 (0.7-2.1) mmol/L Calcium 8.3 L (8.4-10.2) mg/dL Phosphorus (2.5-4.5) mg/dL Magnesium 2.1 (1.6-2.3) mg/dL Total Bilirubin 0.2 (0.2-1.3) mg/dL AST 24 (14-36) IU/L ALT 25 (<35) IU/L Alkaline Phosphatase 335 H (38-126) U/L NT-Pro-B Natriuret Pep 1790 H (<125) pg/mL Total Protein 6.4 (6.3-8.2) g/dL Albumin 3.1 L (3.5-5.0) g/dL Globulin 3.3 (1.7-4.1) g/dL Albumin/Globulin Ratio 0.9 L (1.0-2.8) Lipase 100 (23-300) U/L Procalcitonin 0.14 (<0.5) ng/mL Serum , Qual (Negative) Urine Color Urine Appearance Urine pH (4.5-8.0) Ur Specific [place] (1.000-1.035) Urine Protein (Negative) Urine Glucose (UA) (Negative) g/dL Urine Ketones (NEGATIVE) Urine Occult Blood (Negative) Urine Nitrate (Negative) Urine Bilirubin (NEGATIVE) Urine Urobilinogen (0.2) E.U./dL Ur Leukocyte Esterase (NEGATIVE) Urine RBC (0-5/HPF) Urine WBC (0-5/HPF) Ur Squamous Epith Cells (0-5/HPF) Urine Bacteria (None) Hyaline Casts (None) Ur Culture Indicated? U Opiates 300ng/mL cut (Negative) Ur Oxycodone Screen (Negative) Urine Methadone Screen (Negative) Ur Barbiturates Screen (Negative) U Tricyclic Antidepress (Negative) Ur Phencyclidine Scrn (Negative) Ur Amphetamines Screen (Negative) U Methamphetamines Scrn (Negative) Ur MDMA Scrn (Ecstasy) (Negative) U Benzodiazepines Scrn (Negative) Urine Cocaine Screen (Negative) U Marijuana (THC) Screen (Negative) Ethyl Alcohol < 10 ( - 10) mg/dL Ketones 0.11 (<0.27) mmol/L Chlamy pneumoniae PCR (Not Detect) Adenovirus (PCR) (Not Detect) B. pertussis DNA (PCR) (Not Detecte) B.parapertussis DNA PCR (Not Detecte) Coronavirus OC43 (PCR) (Not Detect) Coronavirus HKU1 (PCR) (Not Detect) Coronavirus 229E (PCR) (Not Detect) SARS-CoV-2 (PCR) (Not Detecte) Coronavirus NL63 (PCR) (Not Detect) Human Metapneumovir PCR (Not Detect) Influenza Type A (PCR) (Not Detect) Influenza Type B (PCR) (Not Detect) M. pneumoniae (PCR) (Not Detect) Parainfluenza 1 (PCR) (Not Detect) Parainfluenza 2 (PCR) (Not Detect) Parainfluenza 3 (PCR) (Not Detect) Parainfluenza 4 (PCR) (Not Detect) RSV (PCR) (Not Detect) Entero/Rhino (PCR) (Not Detect) 06/27/22 06/27/22 06/27/22 Range/Units 20:19 20:19 20:19 WBC (4.5-11.0) X10^3/uL RBC (4.0-5.2) X10^6/uL Hgb (12.0-16.0) g/dL Hct (36-46) % MCV (80-100) fL MCH (26-34) PG MCHC (30-36) % RDW (11.6-14.8) % Plt Count (150-400) X10^3/uL Neut % (Auto) (50-75) % Lymph % (Auto) (25-40) % [place] % (Auto) (3-14) % Eos % (Auto) (2-4) % Baso % (Auto) (0-2) % Neut # (Auto) (6912-9962) /uL Lymph # (Auto) (8390-6267) /uL [place] # (Auto) (0-900) /uL Eos # (Auto) (0-450) /uL Baso # (Auto) (0-100) /uL Sodium (137-145) mmol/L Potassium (3.4-5.1) mmol/L Chloride (98-107) mmol/L Carbon Dioxide (22-32) mmol/L BUN (7-17) mg/dL Creatinine (0.52-1.04) mg/dL Estimated GFR (>60) mL/min BUN/Creatinine Ratio (6-22) Glucose (70-100) mg/dL Lactate (0.7-2.1) mmol/L Calcium (8.4-10.2) mg/dL Phosphorus 6.1 H (2.5-4.5) mg/dL Magnesium (1.6-2.3) mg/dL Total Bilirubin (0.2-1.3) mg/dL AST (14-36) IU/L ALT (<35) IU/L Alkaline Phosphatase (38-126) U/L NT-Pro-B Natriuret Pep (<125) pg/mL Total Protein (6.3-8.2) g/dL Albumin (3.5-5.0) g/dL Globulin (1.7-4.1) g/dL Albumin/Globulin Ratio (1.0-2.8) Lipase (23-300) U/L Procalcitonin (<0.5) ng/mL Serum , Qual Negative (Negative) Urine Color Urine Appearance Urine pH (4.5-8.0) Ur Specific [place] (1.000-1.035) Urine Protein (Negative) Urine Glucose (UA) (Negative) g/dL Urine Ketones (NEGATIVE) Urine Occult Blood (Negative) Urine Nitrate (Negative) Urine Bilirubin (NEGATIVE) Urine Urobilinogen (0.2) E.U./dL Ur Leukocyte Esterase (NEGATIVE) Urine RBC (0-5/HPF) Urine WBC (0-5/HPF) Ur Squamous Epith Cells (0-5/HPF) Urine Bacteria (None) Hyaline Casts (None) Ur Culture Indicated? U Opiates 300ng/mL cut (Negative) Ur Oxycodone Screen (Negative) Urine Methadone Screen (Negative) Ur Barbiturates Screen (Negative) U Tricyclic Antidepress (Negative) Ur Phencyclidine Scrn (Negative) Ur Amphetamines Screen (Negative) U Methamphetamines Scrn (Negative) Ur MDMA Scrn (Ecstasy) (Negative) U Benzodiazepines Scrn (Negative) Urine Cocaine Screen (Negative) U Marijuana (THC) Screen (Negative) Ethyl Alcohol ( - 10) mg/dL Ketones (<0.27) mmol/L Chlamy pneumoniae PCR Not detected (Not Detect) Adenovirus (PCR) Not detected (Not Detect) B. pertussis DNA (PCR) Not detected (Not Detecte) B.parapertussis DNA PCR Not detected (Not Detecte) Coronavirus OC43 (PCR) Not detected (Not Detect) Coronavirus HKU1 (PCR) Not detected (Not Detect) Coronavirus 229E (PCR) Not detected (Not Detect) SARS-CoV-2 (PCR) Not detected (Not Detecte) Coronavirus NL63 (PCR) Not detected (Not Detect) Human Metapneumovir PCR Not detected (Not Detect) Influenza Type A (PCR) Not detected (Not Detect) Influenza Type B (PCR) Not detected (Not Detect) M. pneumoniae (PCR) Not detected (Not Detect) Parainfluenza 1 (PCR) Not detected (Not Detect) Parainfluenza 2 (PCR) Not detected (Not Detect) Parainfluenza 3 (PCR) Not detected (Not Detect) Parainfluenza 4 (PCR) Not detected (Not Detect) RSV (PCR) Not detected (Not Detect) Entero/Rhino (PCR) Not detected (Not Detect) 06/28/22 06/28/22 Range/Units 00:53 00:53 WBC (4.5-11.0) X10^3/uL RBC (4.0-5.2) X10^6/uL Hgb (12.0-16.0) g/dL Hct (36-46) % MCV (80-100) fL MCH (26-34) PG MCHC (30-36) % RDW (11.6-14.8) % Plt Count (150-400) X10^3/uL Neut % (Auto) (50-75) % Lymph % (Auto) (25-40) % [place] % (Auto) (3-14) % Eos % (Auto) (2-4) % Baso % (Auto) (0-2) % Neut # (Auto) (0444-6354) /uL Lymph # (Auto) (4466-5110) /uL [place] # (Auto) (0-900) /uL Eos # (Auto) (0-450) /uL Baso # (Auto) (0-100) /uL Sodium (137-145) mmol/L Potassium (3.4-5.1) mmol/L Chloride (98-107) mmol/L Carbon Dioxide (22-32) mmol/L BUN (7-17) mg/dL Creatinine (0.52-1.04) mg/dL Estimated GFR (>60) mL/min BUN/Creatinine Ratio (6-22) Glucose (70-100) mg/dL Lactate (0.7-2.1) mmol/L Calcium (8.4-10.2) mg/dL Phosphorus (2.5-4.5) mg/dL Magnesium (1.6-2.3) mg/dL Total Bilirubin (0.2-1.3) mg/dL AST (14-36) IU/L ALT (<35) IU/L Alkaline Phosphatase (38-126) U/L NT-Pro-B Natriuret Pep (<125) pg/mL Total Protein (6.3-8.2) g/dL Albumin (3.5-5.0) g/dL Globulin (1.7-4.1) g/dL Albumin/Globulin Ratio (1.0-2.8) Lipase (23-300) U/L Procalcitonin (<0.5) ng/mL Serum , Qual (Negative) Urine Color Straw Urine Appearance Clear Urine pH 6.0 (4.5-8.0) Ur Specific [place] 1.015 (1.000-1.035) Urine Protein 2+ H (Negative) Urine Glucose (UA) 3+ H (Negative) g/dL Urine Ketones Negative (NEGATIVE) Urine Occult Blood 1+ H (Negative) Urine Nitrate Negative (Negative) Urine Bilirubin Negative (NEGATIVE) Urine Urobilinogen 0.2 (0.2) E.U./dL Ur Leukocyte Esterase Negative (NEGATIVE) Urine RBC 5-10/hpf H (0-5/HPF) Urine WBC None seen (0-5/HPF) Ur Squamous Epith Cells 1-5 /hpf (0-5/HPF) Urine Bacteria Occasional (0-1) (None) Hyaline Casts 0-1/lpf (None) Ur Culture Indicated? Cult not indicated U Opiates 300ng/mL cut Negative (Negative) Ur Oxycodone Screen Negative (Negative) Urine Methadone Screen Negative (Negative) Ur Barbiturates Screen Negative (Negative) U Tricyclic Antidepress Negative (Negative) Ur Phencyclidine Scrn Negative (Negative) Ur Amphetamines Screen Negative (Negative) U Methamphetamines Scrn Negative (Negative) Ur MDMA Scrn (Ecstasy) Negative (Negative) U Benzodiazepines Scrn Negative (Negative) Urine Cocaine Screen Negative (Negative) U Marijuana (THC) Screen Negative (Negative) Ethyl Alcohol ( - 10) mg/dL Ketones (<0.27) mmol/L Chlamy pneumoniae PCR (Not Detect) Adenovirus (PCR) (Not Detect) B. pertussis DNA (PCR) (Not Detecte) B.parapertussis DNA PCR (Not Detecte) Coronavirus OC43 (PCR) (Not Detect) Coronavirus HKU1 (PCR) (Not Detect) Coronavirus 229E (PCR) (Not Detect) SARS-CoV-2 (PCR) (Not Detecte) Coronavirus NL63 (PCR) (Not Detect) Human Metapneumovir PCR (Not Detect) Influenza Type A (PCR) (Not Detect) Influenza Type B (PCR) (Not Detect) M. pneumoniae (PCR) (Not Detect) Parainfluenza 1 (PCR) (Not Detect) Parainfluenza 2 (PCR) (Not Detect) Parainfluenza 3 (PCR) (Not Detect) Parainfluenza 4 (PCR) (Not Detect) RSV (PCR) (Not Detect) Entero/Rhino (PCR) (Not Detect) Point of Care Testing Glucose POC 427 Point of care testing: Point of Care Testing Glucose POC 427 Imaging Data Chest x-ray: Radiologist's Impression: PROCEDURE:? XR CHEST 1V ? INDICATIONS:? SOB ? TECHNIQUE:? One view of the chest was acquired.? ? COMPARISON:? [facility], CT, CT ANGIO CHEST PE PROTOCOL, 06/17/2022, 1:35.? [facility], CR, XR CHEST 1V, 06/17/2022, 1:13.? [facility], CR, XR CHEST 1V, 06/17/2022, 12:23.? [facility], CR, XR CHEST 1V, 06/23/2022, 19:40. ? FINDINGS:? ? Surgical changes and devices:? None.? ? Lungs and pleura:? There are persistent diffuse patchy indistinct opacities bilaterally.? There are also persistent reticular interstitial opacities.? The findings appears slightly decreased compared to the recent study of 06/23/2022 but similar to the previous studies.? No pleural effusions or pneumothorax.? ? Mediastinum:? Mediastinal contours appear normal.? Heart size is normal.? ? Bones and chest wall:? No suspicious bony lesions.? Overlying soft tissues appear unremarkable.? ? IMPRESSION:? ? 1. Persistent bilateral reticular interstitial opacities likely representing pulmonary edema.? Additional patchy indistinct airspace opacities are suggestive of atypical pneumonia.? Findings appear slightly increased compared to the 06/23/2022 study but similar compared to other previous recent exams.? CT scan - chest: Radiologist's Impression: PROCEDURE:? CT ANGIO CHEST PE PROTOCOL ? INDICATIONS:? Chest pain, shortness of breath, tachycardia ? TECHNIQUE:? After the administration of intravenous contrast, 2 mm thick sections acquired from the pulmonary apices to the posterior costophrenic angles.? 3-dimensional maximum intensity projection (MIP) coronal and sagittal reformats were then acquired through the thorax.? For radiation dose reduction, the following was used:? automated exposure control, adjustment of mA and/or kV according to patient size.? ? COMPARISON:? [facility], CR, XR CHEST 1V, 06/27/2022, 20:31.? [facility], CT, CT ANGIO CHEST PE PROTOCOL, 06/17/2022, 1:35. ? FINDINGS:? Image quality:? Excellent.? ? Pulmonary arteries:? Pulmonary arteries are normal in size, and demonstrate no intraluminal filling defects to suggest central pulmonary embolism.? ? Lower Neck: No lymphadenopathy by size criteria. Thyroid:? Visualized thyroid demonstrates no discrete nodules. Axillae: No lymphadenopathy by size criteria. Chest Wall:? Unremarkable.? Bones: Visualized osseous structures demonstrate no suspicious lesions. ? Lungs and Airways:? There are persistent confluent areas of septal thickening within the lower lobes and lung apices bilaterally.? These are associated with confluent areas of indistinct ground-glass opacities.? The findings are overall similar to the prior CT with slight decrease in patchy areas of consolidation in the apices.? The trachea and central airways are patent. Pleura: No pneumothorax or pleural effusions.? ? Heart: Heart size is normal.? No pericardial effusion. Thoracic Vessels: The thoracic aorta is normal in size.? Mediastinum and Caron: No lymphadenopathy by size criteria. Esophagus: No wall thickening. No hiatal hernia. ? Abdomen:? Visualized upper abdominal solid organs appear normal in the early arterial phase of enhancement.? ? IMPRESSION:? ? 1. No evidence of pulmonary embolism. ? 2. Persistent areas of confluent septal thickening with associated patchy areas of consolidation and ground-glass opacities.? The findings most likely represent an atypical pneumonia but the differential includes inflammatory processes such as inhalational exposures.? The imaging differential also includes lymphangitic carcinomatosis but this is considered less likely. ? 3. Interval resolution of previously visualized bilateral pleural effusions.? ECG Data Interpretation: Sinus rhythm Ventricular rate 92 Normal axis Normal QRS Normal QTC No ST T wave changes MDM Narrative Medical decision making narrative: Patient arrived actually looking better than what I have seen her in the past however on room air was satting in the mid 80s. This improved with oxygen by nasal cannula at 2 L. her lungs were clear. No chest pain. EKG is unremarkable. Labs show a leukocytosis but this is similar to what she had last time she was here in the emergency department. Patient is hyperglycemic but not in DKA. Chest x-ray shows potential atypical pneumonia that looks different from her most recent chest x-ray but similar to prior x-rays. CT scan of the chest shows no pulmonary embolism and similar to prior studies. I did consider pneumonia in the patient given her leukocytosis in the findings however she has recently completed a course of antibiotics for pneumonia and her x-ray is relatively unchanged. Clinically she does not have pneumonia she is not having a productive cough and has clear lungs and is afebrile. Review of the prior notes in the emergency department states she is been diuresed which seems to have helped her symptoms in the past. The last admission she did have an echocardiogram which did showed decreased ejection fraction but actually improved from prior. When she was here in the department last she had an increase in her Lasix from 20 mg once a day to 20 mg twice a day. That was just changed back to 20 mg once a day by her primary doctor yesterday. I suspect that her presenting symptoms today are more fluid overload rather than infectious etiology so we will hold on any antibiotics for now. Patient was diuresed here in the ER. We were able to wean her off all of her oxygen. Once again patient is not in DKA. Her blood sugar improved with fluids. She was given her home dose of insulin. Patient states that she was feeling much better would like to be discharged home. She is here with her mother. Plan to be is to increase her Lasix again to twice a day. She was given return precautions and follow-up instructions. She expressed understanding. Discharge Plan Departure Patient Disposition: Home Clinical Impression: CHF (congestive heart failure), Hypoxia, Hyperglycemia Instructions: DI for Heart Failure Activity Restrictions/Additional Instructions: I do recommend that you continue to take all of your medications as directed except increase the furosemide/Lasix from 20 mg once a day to 20 mg twice a day. I also recommend that you contact your primary provider for follow-up. Return to the emergency department for any new or worsening symptoms. Prescriptions: No Action glucose 4 gram tablet,chewable 4 gram PO Q15M PRN (Reason: hypoglycemia) Qty: 30 0RF Rx Instructions: until response Glucagon Emergency Kit (human) 1 mg recon soln 1 mg subcut DIRECTED ondansetron 4 mg tablet,disintegrating 4 mg PO Q8H PRN (Reason: nausea and vomiting) Qty: 10 0RF losartan 25 mg Tablet 25 mg PO DAILY 30 Days Qty: 30 0RF metoprolol tartrate 25 mg Tablet 25 mg PO BID 30 Days Qty: 60 0RF furosemide 20 mg tablet 20 mg PO DAILY 30 Days Qty: 30 0RF diphenhydramine HCl 50 mg Capsule 50 mg PO BEDTIME PRN (Reason: Sleep) Rx Instructions: for itching and sleep insulin aspart U-100 [Novolog FlexPen U-100 Insulin] 100 unit/mL (3 mL) insulin pen See Rx Instructions .ROUTE .COMPLEX Patient Comments: Inject 7-20 Units under the skin 3 (three) times a day with meals SLIDING scale Rx Instructions: 7-10 units at meals using sliding scale pantoprazole 40 mg tablet,delayed release (DR/EC) 40 mg PO BEDTIME Patient Comments: TAKE ONE TABLET BY MOUTH ONE TIME DAILY insulin degludec [Tresiba FlexTouch U-200] 200 unit/mL (3 mL) insulin pen 13 ea SUBCUT BID methocarbamol 500 mg tablet 1 tab PO TID Patient Comments: TAKE ONE TO TWO TABLETS BY MOUTH THREE TIMES DAILY NEEDED FOR MUSCLE SPASMS sennosides [senna] 8.6 mg Tablet 8.6 mg PO DAILY acetaminophen 325 mg Tablet 975 mg PO Q8H Qty: 30 0RF tramadol 50 mg Tablet 50 mg PO Q4H PRN (Reason: Pain, Moderate (4-6)) Qty: 15 0RF naloxone [Narcan] 4 mg/actuation spray,non-aerosol 1 spray intranasal Q2M Qty: 2 0RF Rx Instructions: spray 1 dose into ONE nostril; alternate nostrils w each dose until help arrives ondansetron 4 mg tablet,disintegrating 4 mg PO Q8H PRN (Reason: nausea and vomiting) Qty: 15 0RF valacyclovir [Valtrex] 1 gram tablet 1,000 mg PO TID Qty: 30 0RF Referrals: Maria Ines Limon DO [Primary Care Provider] - Stand Alone Forms: Patient Portal/API
--- NOTE | 2022-06-27 20:11 | DI.RAD.S_ITS ---
PROCEDURE: XR CHEST 1V INDICATIONS: SOB TECHNIQUE: One view of the chest was acquired. COMPARISON: [facility], CT, CT ANGIO CHEST PE PROTOCOL, 06/17/2022, 1:35. [facility], CR, XR CHEST 1V, 06/17/2022, 1:13. [facility], CR, XR CHEST 1V, 06/17/2022, 12:23. [facility], CR, XR CHEST 1V, 06/23/2022, 19:40. FINDINGS: Surgical changes and devices: None. Lungs and pleura: There are persistent diffuse patchy indistinct opacities bilaterally. There are also persistent reticular interstitial opacities. The findings appears slightly decreased compared to the recent study of 06/23/2022 but similar to the previous studies. No pleural effusions or pneumothorax. Mediastinum: Mediastinal contours appear normal. Heart size is normal. Bones and chest wall: No suspicious bony lesions. Overlying soft tissues appear unremarkable. IMPRESSION: 1. Persistent bilateral reticular interstitial opacities likely representing pulmonary edema. Additional patchy indistinct airspace opacities are suggestive of atypical pneumonia. Findings appear slightly increased compared to the 06/23/2022 study but similar compared to other previous recent exams. Dictated by: Jesus Winston M.D. on 06/27/2022 at 20:50 Approved by: Jesus Winston M.D. on 06/27/2022 at 20:53
[2022-06-27] MEDS: SODIUM CHLORIDE 0.9% 1,000 ML 125 ML IV (20:30)
[2022-06-27 20:46] LABS: Add Manual Diff / Slide Review NO; Basophils Absolute Auto 100 /uL (0-100); Basophils Percent Auto 0.8 % (0-2); Eosinophils Absolute Auto 800 /uL (0-450); Eosinophils Percent Auto 4.5 % (2-4); Hematocrit 36.5 % (36-46); Hemoglobin 11.4 g/dL (12.0-16.0); Lymphocytes Absolute Auto 1700 /uL (1100-4500); Lymphocytes Percent Auto 9.8 % (25-40); Mean Corpuscular HGB Conc 31.2 % (30-36); Mean Corpuscular Hemoglobin 26.6 PG (26-34); Mean Corpuscular Volume 85.3 fL (80-100); Monocytes Absolute Auto 900 /uL (0-900); Monocytes Percent Auto 5.3 % (3-14); Neutrophils Absolute Auto 13800 /uL (1500-7000); Neutrophils Percent Auto 79.6 % (50-75); Platelet Count 510 X10^3/uL (150-400); Red Blood Cell Count 4.28 X10^6/uL (4.0-5.2); Red Cell Distribution Width 14.3 % (11.6-14.8); White Blood Cell Count 17.3 X10^3/uL (4.5-11.0)
[2022-06-27 20:58] LABS: Alanine Aminotransferase 25 IU/L (<35); Albumin 3.1 g/dL (3.5-5.0); Albumin Globulin Ratio 0.9 (1.0-2.8); Alkaline Phosphatase 335 U/L (38-126); Aspartate Aminotransferase 24 IU/L (14-36); BUN Creatinine Ratio 41.2 (6-22); Bilirubin Total 0.2 mg/dL (0.2-1.3); Blood Urea Nitrogen 40 mg/dL (7-17); Calcium 8.3 mg/dL (8.4-10.2); Carbon Dioxide 30 mmol/L (22-32); Chloride 97 mmol/L (98-107); Estimated Glomerular Filt Rate > 60 mL/min (>60); Globulin 3.3 g/dL (1.7-4.1); HEMOLYSIS < 15 (0-50); Lipase 100 U/L (23-300); Magnesium 2.1 mg/dL (1.6-2.3); Sodium 133 mmol/L (137-145); Total Protein 6.4 g/dL (6.3-8.2)
[2022-06-27 20:59] LABS: Lactate (Lactic Acid) 0.9 mmol/L (0.7-2.1); Phosphorous 6.1 mg/dL (2.5-4.5)
[2022-06-27 21:01] LABS: Ketones (Beta-Hydroxybutyrate) 0.11 mmol/L (<0.27); Potassium 5.5 mmol/L (3.4-5.1)
[2022-06-27 21:03] LABS: Glucose 518 mg/dL (70-100)
[2022-06-27 21:04] LABS: Ethanol (ETOH) < 10 mg/dL; Pregnancy Test Serum,Qual Negative (Negative)
[2022-06-27 21:07] LABS: NT-proBNP (BNP-Adult 18+) 1790 pg/mL (<125)
[2022-06-27 21:14] LABS: Procalcitonin 0.14 ng/mL (<0.5)
--- NOTE | 2022-06-27 21:19 | DI.CT.S_ITS ---
PROCEDURE: CT ANGIO CHEST PE PROTOCOL INDICATIONS: Chest pain, shortness of breath, tachycardia TECHNIQUE: After the administration of intravenous contrast, 2 mm thick sections acquired from the pulmonary apices to the posterior costophrenic angles. 3-dimensional maximum intensity projection (MIP) coronal and sagittal reformats were then acquired through the thorax. For radiation dose reduction, the following was used: automated exposure control, adjustment of mA and/or kV according to patient size. COMPARISON: [facility], CR, XR CHEST 1V, 06/27/2022, 20:31. [facility], CT, CT ANGIO CHEST PE PROTOCOL, 06/17/2022, 1:35. FINDINGS: Image quality: Excellent. Pulmonary arteries: Pulmonary arteries are normal in size, and demonstrate no intraluminal filling defects to suggest central pulmonary embolism. Lower Neck: No lymphadenopathy by size criteria. Thyroid: Visualized thyroid demonstrates no discrete nodules. Axillae: No lymphadenopathy by size criteria. Chest Wall: Unremarkable. Bones: Visualized osseous structures demonstrate no suspicious lesions. Lungs and Airways: There are persistent confluent areas of septal thickening within the lower lobes and lung apices bilaterally. These are associated with confluent areas of indistinct ground-glass opacities. The findings are overall similar to the prior CT with slight decrease in patchy areas of consolidation in the apices. The trachea and central airways are patent. Pleura: No pneumothorax or pleural effusions. Heart: Heart size is normal. No pericardial effusion. Thoracic Vessels: The thoracic aorta is normal in size. Mediastinum and [place]: No lymphadenopathy by size criteria. Esophagus: No wall thickening. No hiatal hernia. Abdomen: Visualized upper abdominal solid organs appear normal in the early arterial phase of enhancement. IMPRESSION: 1. No evidence of pulmonary embolism. 2. Persistent areas of confluent septal thickening with associated patchy areas of consolidation and ground-glass opacities. The findings most likely represent an atypical pneumonia but the differential includes inflammatory processes such as inhalational exposures. The imaging differential also includes lymphangitic carcinomatosis but this is considered less likely. 3. Interval resolution of previously visualized bilateral pleural effusions. Dictated by: Jesus Winston M.D. on 06/27/2022 at 22:36 Approved by: Jesus Winston M.D. on 06/27/2022 at 22:42
[2022-06-27] MEDS: HYDROMORPHONE 0.5 MG INJ IV (21:27)
[2022-06-27] MEDS: methylPREDNISolone 125 MG/2 ML VIAL IV (21:27)
[2022-06-27] MEDS: diphenhydrAMINE 50 MG/ML VIAL 25 MG IV (21:27)
[2022-06-27 21:59] LABS: Adenovirus Not Detected (Not Detect); B. parapertussis Not Detected (Not Detecte); Bordetella pertussis Not Detected (Not Detecte); Chlamydophila pneumoniae Not Detected (Not Detect); Coronavirus 229E Not Detected (Not Detect); Coronavirus HKU1 Not Detected (Not Detect); Coronavirus NL 63 Not Detected (Not Detect); Coronavirus OC43 Not Detected (Not Detect); Human Metapneumovirus Not Detected (Not Detect); Human Rhinovirus/Enterovirus Not Detected (Not Detect); Influenza A Not Detected (Not Detect); Influenza B Not Detected (Not Detect); Mycoplasma pneumoniae Not Detected (Not Detect); Parainfluenza Virus 1 Not Detected (Not Detect); Parainfluenza Virus 2 Not Detected (Not Detect); Parainfluenza Virus 3 Not Detected (Not Detect); Parainfluenza Virus 4 Not Detected (Not Detect); Respiratory Syncytial Virus Not Detected (Not Detect); SARS- CoV-2 Not Detected (Not Detecte)
[2022-06-27] MEDS: FUROSEMIDE 40 MG/4 ML VIAL IV (23:55)
[2022-06-27] MEDS: KETOROLAC 30 MG/ML VIAL IV (23:56)
[2022-06-28] VITALS (7 sets, daily range): BP systolic 134–174; BP diastolic 87–95; PULSE 90–95; RESP 13–17; O2SAT 89–93
[2022-06-28 01:03] LABS: Ur Creatinine Normal (Normal); Ur Specific Gravity Normal (Normal); Urine pH Normal (Normal)
[2022-06-28 01:04] LABS: Appearance Urine UA CLEAR; Bilirubin Urine UA NEGATIVE (NEGATIVE); Glucose Urine UA 3+ g/dL (Negative); Ketones Urine UA NEGATIVE (NEGATIVE); Leukocyte Esterase Urine UA NEGATIVE (NEGATIVE); Nitrite Urine UA NEGATIVE (Negative); Occult Blood Urine UA 1+ (Negative); Protein Urine UA 2+ (Negative); Specific Gravity Urine UA 1.015 (1.000-1.035); UR Morphine/Opiate cutoff 300 Negative (Negative); Urine Amphetamines Negative (Negative); Urine Barbiturates Negative (Negative); Urine Benzodiazepines Negative (Negative); Urine Cocaine Negative (Negative); Urine MDMA Negative (Negative); Urine Methadone Negative (Negative); Urine Methamphetamines Negative (Negative); Urine Oxycodone Negative (Negative); Urine Phencyclidine Negative (Negative); Urine Tetrahydrocannabinol Negative (Negative); Urine Tricyclic Antidepressant Negative (Negative); Urobilinogen Urine UA 0.2 E.U./dL (0.2)
[2022-06-28 01:07] LABS: Color Urine UA Straw; RBC Urine 5-10/HPF (0-5/HPF); Squamous Epithelial Cell Urine 1-5 /HPF (0-5/HPF); WBC Urine None Seen (0-5/HPF)
[2022-06-28 01:08] LABS: Bacteria Urine Occasional (0-1); Hyaline Casts Urine 0-1/LPF
[2022-06-28 01:11] LABS: Culture Indicated Urine Cult Not Indicated
[2022-06-28] MEDS: INSULIN LISPRO 100 UNIT/ML 3ML VIAL SUBCUT (02:42)
== END 2022-06-28 03:04 | disposition home or self-care (01) ==
PROVIDERS: Emergency Provider Emergency Medicine; PCP Student in an Organized Health Care Education/Training Program
DX: I50.9 Heart failure, unspecified (principal); R09.02 Hypoxemia; R73.9 Hyperglycemia, unspecified; R07.9 Chest pain, unspecified; R00.0 Tachycardia, unspecified
CPT/HCPCS: 36415; 71045; 71275; 80053; 80305; 80320; 81001; 82009; 82962; 83605; 83690; 83735; 83880; 84100; 84145; 84703; 85025; 87040; 87633; 93005; 96361; 96372; 96374; 96375; 99284; J1170; J1200; J1885; J1940; J2930; Q9967

== ENCOUNTER 2022-07-02 11:43 | Inpatient (IN) | payer MEDICAID, OTHER, SELFPAY ==
[2022-06-17 12:00] VITALS: BMI 21.3
[2022-07-02] VITALS (16 sets, daily range): BP systolic 124–181; BP diastolic 77–96; PULSE 81–91; RESP 10–60; TEMP 36.6–36.8; O2SAT 88–97; BMI 20.7; BMI 20.8
--- NOTE | 2022-07-02 12:03 | DI.RAD.S_ITS ---
PROCEDURE: XR CHEST 1V INDICATIONS: chest pain TECHNIQUE: One view of the chest was acquired. COMPARISON: [facility], CR, XR CHEST 1V, 06/27/2022, 20:31. [facility], CR, XR CHEST 1V, 06/23/2022, 19:40. FINDINGS: Surgical changes and devices: None. Lungs and pleura: Increased pulmonary markings. Peribronchial cuffing. Mediastinum: Mediastinal contours appear normal. Heart size is normal. Bones and chest wall: No suspicious bony lesions. Overlying soft tissues appear unremarkable. IMPRESSION: Suspect mild interstitial edema, given increased pulmonary markings and peribronchial cuffing. Dictated by: Alberto Bateman M.D. on 07/02/2022 at 12:43 Approved by: Alberto Bateman M.D. on 07/02/2022 at 12:44
--- NOTE | 2022-07-02 12:34 | ED_ITS ---
HPI - Chest Pain General Chief Complaint: Chest Pain Stated Complaint: chest heavy/back pain start RT side noving to LT Time Seen by Provider: 07/02/22 12:12 Source: patient and family Mode of arrival: Family Vehicle Limitations: no limitations History of Present Illness HPI narrative: Patient is a 32-year-old female. Well known to myself. Is a brittle diabetic. Also recently has had issues with fluid retention/CHF. Has been admitted to the hospital within the past month for fluid overload needing diuresis. She is been seen here in the emergency department 2 times since then. Most recently by myself a couple days ago. At that visit she was having back discomfort and also shortness of breath. She was diuresed. Was not in DKA. Was discharged home. Since that time she is had continued back discomfort. Has been worsening chest heaviness and back discomfort that is now moving to the left side. Since she was last seen here they have been having some issues with her blood sugars actually being on the low side. She has been taking all of her medications as directed. Related Data Home Medications Medication Instructions Recorded Confirmed glucagon (human recombinant) 1 mg 1 mg SUBCUT DIRECTED 02/16/19 07/02/22 solution for injection (Glucagon Emergency Kit) diphenhydramine HCl 50 mg capsule 50 mg PO BEDTIME PRN Sleep 09/29/20 07/02/22 insulin degludec 200 unit/mL (3 See Rx Instructions .Route .COMPLEX 11/13/21 07/02/22 mL) subcutaneous pen (Tresiba FlexTouch U-200 insulin) pantoprazole 40 mg tablet,delayed 40 mg PO BEDTIME 11/13/21 07/02/22 release sennosides 8.6 mg tablet (senna) 8.6 mg PO PRN PRN Constipation 11/13/21 07/02/22 atropine 1 % eye drops 1 drp ophthalmic (eye) BEDTIME 07/02/22 07/02/22 brinzolamide 1 %-brimonidine 0.2 % 1 drp ophthalmic (eye) BID 07/02/22 07/02/22 eye drops,suspension (Simbrinza) insulin lispro 100 unit/mL See Rx Instructions .Route .COMPLEX 07/02/22 subcutaneous solution (Humalog U-100 Insulin) latanoprost 0.005 % eye drops 1 drp ophthalmic (eye) BEDTIME 07/02/22 07/02/22 timolol maleate 0.5 % eye drops 1 drp ophthalmic (eye) BID 07/02/22 07/02/22 Previous Rx's Medication Instructions Recorded glucose 4 gram chewable tablet 4 gram PO Q15M PRN hypoglycemia 12/12/18 #30 tabs ondansetron 4 mg disintegrating 4 mg PO Q8H PRN nausea and 11/08/21 tablet vomiting #10 tabs acetaminophen 325 mg tablet 975 mg PO Q8H #30 tabs 11/18/21 naloxone 4 mg/actuation nasal 1 spray intranasal Q2M #2 ea 11/18/21 spray (Narcan) ondansetron 4 mg disintegrating 4 mg PO Q8H PRN nausea and 03/18/22 tablet vomiting #15 tabs furosemide 20 mg tablet 20 mg PO DAILY 30 days #30 tabs 06/20/22 losartan 25 mg tablet 25 mg PO DAILY 30 days #30 tabs 06/20/22 metoprolol tartrate 25 mg tablet 25 mg PO BID 30 days #60 tabs 06/20/22 Allergies Allergy/AdvReac Type Severity Reaction Status Date / Time abdalla [ABDALLA] Allergy Intermediate Hives, Verified 07/02/22 12:02 pruritus iodine [IODINE] Allergy Intermediate rash, itchy Verified 07/02/22 12:02 morphine Allergy Intermediate Difficulty Verified 07/02/22 12:02 Breathing shellfish derived Allergy Intermediate rash Verified 07/02/22 12:02 [SHELLFISH DERIVED] adhesive [ADHESIVE] Allergy Unknown tape Verified 07/02/22 12:02 latex [LATEX] Allergy Unknown Hives Verified 07/02/22 12:02 Review of Systems Review of Systems ROS Unobtainable: All systems reviewed & are unremarkable except as noted in HPI and below Patient History Medical History DKA (diabetic ketoacidoses) History of pyelonephritis Irregular menstrual cycle Migraine headache Nephrolithiasis Noncompliance w/medication treatment due to intermit use of medication Type 1 diabetes mellitus Surgical History History of ureter stent Hx of cataract surgery Hx of local excision of skin lesion Status post cholecystectomy Status post laser lithotripsy of ureteral calculus [place] teeth extracted Family History Father In good health Mother Cardiac disease Social History details: Engaged household members: family Smoking Status: Never smoker alcohol intake: never Smoking Status: Never smoker alcohol intake frequency: holidays/special occasions only Substance Use Type: does not use Exam Initial Vital Signs Initial Vital Signs: Vital Signs Blood Pressure 135/88 07/02/22 11:58 Const General: cooperative and comfortable HENMT Head: normal to inspection and normocephalic Resp Effort & Inspection: normal respiratory effort Auscultation: clear to auscultation bilaterally Cardio Rate: regular rate Rhythm: regular rhythm GI Inspection: normal to inspection and non-distended Back/Spine/Pelvis Thoracic/Lumbar Spine: paraspinal tenderness and No lumbar spinal tenderness Skin General: no rashes or lesions noted Neuro General: patient alert, patient awake, patient oriented x3 and moves all extremities Extrem General: normal to inspection and capillary refill normal Psych Appearance: grossly normal and well kempt Course Orders Ordered: ED Orders 07/02/22 12:03 XR chest 1V Stat EKG-12 Lead Stat 07/02/22 12:20 BNP [NT-proBNP (BNP-Adult 18+)] Stat Complete Blood Count AUTO DIFF Stat Comprehensive Metabolic Panel Stat Ketones (Beta-Hydroxybutyrate) Stat Lipase Stat Magnesium Stat PTT Partial Thromboplastin Lee Stat Phosphorous Stat Prothrombin Time INR Stat Troponin & CK Cardiac Panel Stat 07/02/22 12:55 COVID19 -Nasal RAPID Stat 07/03/22 05:00 BMP [Basic Metabolic Panel] DAILY CBC Auto Diff [Complete Blood Count AUTO DIFF] DAILY 07/04/22 05:00 BMP [Basic Metabolic Panel] DAILY CBC Auto Diff [Complete Blood Count AUTO DIFF] DAILY 07/05/22 05:00 BMP [Basic Metabolic Panel] DAILY CBC Auto Diff [Complete Blood Count AUTO DIFF] DAILY Acetaminophen (Acetaminophen 325 Mg Tablet) 650 mg PO Q6H PRN PRN Reason: Fever/Mild Pain (1-3) Calcium Carbonate (Calcium Carbonate 500 Mg Tab) 1,000 mg PO Q6H PRN PRN Reason: Dyspepsia Dextrose (Dextrose 50 % In Water 25 Gm/50 Ml Syringe) 25 gm IV PRN PRN PRN Reason: Hypoglycemia Diphenhydramine HCl (Diphenhydramine 25 Mg Tablet) 50 mg PO BEDTIME PRN PRN Reason: Sleep Enoxaparin Sodium (Enoxaparin 40 Mg/0.4 Ml Syringe) 40 mg SUBCUT DAILY BLAISE Furosemide (Furosemide 40 Mg/4 Ml Vial) 40 mg IV 1600,0800 [facility] Last Admin: 07/02/22 16:20 Dose: 40 mg Documented By: TLS Insulin Glargine (Insulin Glargine 100 Unit/Ml 3ml Pen) 13 unit SUBCUT BID BLAISE Insulin Human Lispro (Insulin Lispro 100 Unit/Ml 3ml Vial) 0 unit SUBCUT ACHS BLAISE; Protocol Last Admin: 07/02/22 18:19 Dose: 1 unit Documented By: HCW Co-signed By: MM Losartan Potassium (Losartan 25 Mg Tablet) 25 mg PO DAILY [facility] Melatonin (Melatonin 3 Mg Tablet) 6 mg PO BEDTIME PRN PRN Reason: Insomnia Methocarbamol (Methocarbamol 500 Mg Tablet) 500 mg PO TID PRN PRN Reason: spasms Metoprolol Tartrate (Metoprolol Ir 25 Mg Tablet) 25 mg PO BID BLAISE Naloxone HCl (Naloxone 0.4 Mg/Ml Vial) 0.2 mg IV Q2MIN PRN PRN Reason: Opiate Reversal Ondansetron HCl (Ondansetron 4 Mg Odt) 4 mg PO Q8H PRN PRN Reason: nausea and vomiting Pantoprazole Sodium (Pantoprazole Dr 20 Mg Tablet) 40 mg PO BEDTIME BLAISE Polyethylene Glycol (Polyethylene Glycol 3350 17 Gm Powd.Pack) 17 gm PO DAILY PRN PRN Reason: Constipation Sennosides (Sennosides 8.6 Mg Tablet) 8.6 mg PO BID PRN PRN Reason: Constipation Sennosides (Sennosides 8.6 Mg Tablet) 8.6 mg PO DAILY [facility] Sodium Chloride (Sodium Chloride 0.9% Flush) 10 ml IV PRN PRN PRN Reason: Flush Sodium Chloride (Sodium Chloride 0.9% Flush) 10 ml IV BID BLAISE Tramadol HCl (Tramadol 50 Mg Tablet) 50 mg PO Q4H PRN PRN Reason: Pain, Moderate (4-6) Last Admin: 07/02/22 16:50 Dose: 50 mg Documented By: HCW Discontinued Medications Aspirin (Aspirin 81 Mg Chew Tab) 324 mg PO NOW ONE Stop: 07/02/22 12:04 Last Admin: 07/02/22 12:56 Dose: Not Given Documented By: MARY Furosemide (Furosemide 40 Mg/4 Ml Vial) 40 mg IV NOW ONE Stop: 07/02/22 13:19 Last Admin: 07/02/22 13:55 Dose: 40 mg Documented By: AT Hydromorphone HCl (Hydromorphone 1 Mg Inj) 1 mg IV NOW ONE Stop: 07/02/22 13:36 Last Admin: 07/02/22 13:52 Dose: 1 mg Documented By: AT Sodium Chloride (Normal Saline 0.9%) 1,000 mls @ 1,000 mls/hr IV BOLUS ONE Stop: 07/02/22 13:34 Last Infusion: 07/02/22 13:20 Dose: 0 mls/hr Documented By: Admin: 07/02/22 12:56 Dose: 1,000 mls/hr Documented By: MARY Vital Signs Vital signs: Vital Signs - 8 hr 07/02/22 12:00 07/02/22 11:58 07/02/22 11:59 Temperature 97.8 F Pulse Rate 85 85 Respiratory Rate 12 Blood Pressure 135/88 135/88 Pulse Oximetry 92 88 L Oxygen Delivery Method Room Air Room Air Oxygen Flow Rate 07/02/22 12:00 07/02/22 12:30 07/02/22 13:00 Temperature Pulse Rate 85 82 83 Respiratory Rate 60 H 10 L 11 L Blood Pressure Pulse Oximetry 92 97 96 Oxygen Delivery Method Nasal Cannula Oxygen Flow Rate 2 07/02/22 13:30 07/02/22 13:54 07/02/22 13:54 Temperature Pulse Rate 83 84 Respiratory Rate 11 L 10 L Blood Pressure 181/96 H Pulse Oximetry 96 94 Oxygen Delivery Method Oxygen Flow Rate 07/02/22 14:00 07/02/22 14:00 07/02/22 14:30 Temperature Pulse Rate 81 Respiratory Rate 11 L Blood Pressure 163/85 H 138/77 Pulse Oximetry 93 Oxygen Delivery Method Oxygen Flow Rate 07/02/22 14:30 07/02/22 15:05 07/02/22 15:30 Temperature Pulse Rate 83 86 Respiratory Rate 13 15 Blood Pressure 128/83 Pulse Oximetry 92 Oxygen Delivery Method Oxygen Flow Rate 07/02/22 15:30 Temperature Pulse Rate 82 Respiratory Rate 10 L Blood Pressure Pulse Oximetry 94 Oxygen Delivery Method Oxygen Flow Rate MDM - Chest Pain Medical Records Data Attestation: I reviewed the patient's medical records. Lab Data Attestation: I reviewed the patient's lab results. 07/02/22 12:20 07/02/22 12:20 Labs: Lab Results 07/02/22 07/02/22 07/02/22 Range/Units 12:20 12:20 12:20 WBC 12.9 H (4.5-11.0) X10^3/uL RBC 4.01 (4.0-5.2) X10^6/uL Hgb 10.6 L (12.0-16.0) g/dL Hct 33.7 L (36-46) % MCV 84.0 (80-100) fL MCH 26.4 (26-34) PG MCHC 31.5 (30-36) % RDW 14.5 (11.6-14.8) % Plt Count 440 H (150-400) X10^3/uL Neut % (Auto) 70.8 (50-75) % Lymph % (Auto) 16.6 L (25-40) % [place] % (Auto) 5.3 (3-14) % Eos % (Auto) 6.3 H (2-4) % Baso % (Auto) 1.0 (0-2) % Neut # (Auto) 9100 H (9519-7346) /uL Lymph # (Auto) 2100 (2499-0016) /uL [place] # (Auto) 700 (0-900) /uL Eos # (Auto) 800 H (0-450) /uL Baso # (Auto) 100 (0-100) /uL PT 11.4 (10.1-12.7) SECONDS INR 1.0 (0.9-1.3) APTT 38 H (26-36) SECONDS Sodium 134 L (137-145) mmol/L Potassium 5.0 (3.4-5.1) mmol/L Chloride 102 (98-107) mmol/L Carbon Dioxide 28 (22-32) mmol/L BUN 29 H (7-17) mg/dL Creatinine 0.53 (0.52-1.04) mg/dL Estimated GFR > 60 (>60) mL/min BUN/Creatinine Ratio 54.7 H (6-22) Glucose 256 H D (70-100) mg/dL Calcium 8.1 L (8.4-10.2) mg/dL Phosphorus (2.5-4.5) mg/dL Magnesium 1.9 (1.6-2.3) mg/dL Total Bilirubin 0.4 (0.2-1.3) mg/dL AST 36 (14-36) IU/L ALT 35 H (<35) IU/L Alkaline Phosphatase 233 H (38-126) U/L Total Creatine Kinase 50 (30-135) U/L CK-MB (CK-2) TNP CK-MB (CK-2) Rel Index TNP Troponin I < 0.012 (0.01-0.034) ng/mL NT-Pro-B Natriuret Pep (<125) pg/mL Total Protein 6.7 (6.3-8.2) g/dL Albumin 3.2 L (3.5-5.0) g/dL Globulin 3.5 (1.7-4.1) g/dL Albumin/Globulin Ratio 0.9 L (1.0-2.8) Lipase 32 D (23-300) U/L Ketones (<0.27) mmol/L SARS-CoV-2 (PCR) (Negative) 07/02/22 07/02/22 07/02/22 Range/Units 12:20 12:20 12:55 WBC (4.5-11.0) X10^3/uL RBC (4.0-5.2) X10^6/uL Hgb (12.0-16.0) g/dL Hct (36-46) % MCV (80-100) fL MCH (26-34) PG MCHC (30-36) % RDW (11.6-14.8) % Plt Count (150-400) X10^3/uL Neut % (Auto) (50-75) % Lymph % (Auto) (25-40) % [place] % (Auto) (3-14) % Eos % (Auto) (2-4) % Baso % (Auto) (0-2) % Neut # (Auto) (9133-8801) /uL Lymph # (Auto) (7885-6259) /uL [place] # (Auto) (0-900) /uL Eos # (Auto) (0-450) /uL Baso # (Auto) (0-100) /uL PT (10.1-12.7) SECONDS INR (0.9-1.3) APTT (26-36) SECONDS Sodium (137-145) mmol/L Potassium (3.4-5.1) mmol/L Chloride (98-107) mmol/L Carbon Dioxide (22-32) mmol/L BUN (7-17) mg/dL Creatinine (0.52-1.04) mg/dL Estimated GFR (>60) mL/min BUN/Creatinine Ratio (6-22) Glucose (70-100) mg/dL Calcium (8.4-10.2) mg/dL Phosphorus 4.3 D (2.5-4.5) mg/dL Magnesium (1.6-2.3) mg/dL Total Bilirubin (0.2-1.3) mg/dL AST (14-36) IU/L ALT (<35) IU/L Alkaline Phosphatase (38-126) U/L Total Creatine Kinase (30-135) U/L CK-MB (CK-2) CK-MB (CK-2) Rel Index Troponin I (0.01-0.034) ng/mL NT-Pro-B Natriuret Pep 3830 H (<125) pg/mL Total Protein (6.3-8.2) g/dL Albumin (3.5-5.0) g/dL Globulin (1.7-4.1) g/dL Albumin/Globulin Ratio (1.0-2.8) Lipase (23-300) U/L Ketones 0.31 H (<0.27) mmol/L SARS-CoV-2 (PCR) Negative (Negative) Point of Care Testing Glucose POC 187 Imaging Data Chest x-ray: Radiologist's Impression: PROCEDURE:? XR CHEST 1V ? INDICATIONS:? chest pain ? TECHNIQUE:? One view of the chest was acquired.? ? COMPARISON:? , , XR CHEST 1V, 06/27/2022, 20:31.? , , XR CHEST 1V, 06/23/2022, 19:40. ? FINDINGS:? ? Surgical changes and devices:? None.? ? Lungs and pleura:? Increased pulmonary markings.? Peribronchial cuffing. ? Mediastinum:? Mediastinal contours appear normal.? Heart size is normal.? ? Bones and chest wall:? No suspicious bony lesions.? Overlying soft tissues appear unremarkable.? ? IMPRESSION:? Suspect mild interstitial edema, given increased pulmonary markings and peribronchial cuffing ECG Data Attestation: I personally reviewed and interpreted this ECG as follows: Interpretation: Sinus rhythm Normal QRS Normal QTC Ventricular rate of [address] T wave changes MDM Narrative Medical decision making narrative: Patient today is not in DKA however her BNP is higher than normal. Chest x-ray does show edema. There does not appear to be any indication of infection. Patient is requiring oxygen to maintain saturations greater than 90%. Given her presentation today and her worsening labs and 3rd visit for hypoxia and needing diuresis patient does require admission to the hospital for continued diuresis. Discussed case with Dr. Kwon on-call for Internal Medicine who will admit. I did discuss the need for admission with the patient and her mom at bedside. They expressed understanding and agreement. Discharge Plan Departure Patient Disposition: Admitted as Observation Clinical Impression: CHF (congestive heart failure), Hypoxia, Back pain Admit Date/Time: 07/02/22 16:07 Admit Provider: Alex Kwon
[2022-07-02 12:43] LABS: Add Manual Diff / Slide Review NO; Basophils Absolute Auto 100 /uL (0-100); Eosinophils Absolute Auto 800 /uL (0-450); Eosinophils Percent Auto 6.3 % (2-4); Hematocrit 33.7 % (36-46); Hemoglobin 10.6 g/dL (12.0-16.0); Lymphocytes Absolute Auto 2100 /uL (1100-4500); Lymphocytes Percent Auto 16.6 % (25-40); Mean Corpuscular HGB Conc 31.5 % (30-36); Mean Corpuscular Hemoglobin 26.4 PG (26-34); Monocytes Absolute Auto 700 /uL (0-900); Monocytes Percent Auto 5.3 % (3-14); Neutrophils Absolute Auto 9100 /uL (1500-7000); Neutrophils Percent Auto 70.8 % (50-75); Platelet Count 440 X10^3/uL (150-400); Red Blood Cell Count 4.01 X10^6/uL (4.0-5.2); Red Cell Distribution Width 14.5 % (11.6-14.8); White Blood Cell Count 12.9 X10^3/uL (4.5-11.0)
[2022-07-02 12:49] LABS: Prothrombin Time 11.4 SECONDS (10.1-12.7)
[2022-07-02 12:51] LABS: PTT Partial Thromboplastin Tim 38 SECONDS (26-36)
--- NOTE | 2022-07-02 12:52 | PC.NURSE ---
pt complaining of right sided lower back/ flank pain.
[2022-07-02 12:56] LABS: Alanine Aminotransferase 35 IU/L (<35); Albumin 3.2 g/dL (3.5-5.0); Albumin Globulin Ratio 0.9 (1.0-2.8); Alkaline Phosphatase 233 U/L (38-126); Aspartate Aminotransferase 36 IU/L (14-36); BUN Creatinine Ratio 54.7 (6-22); Bilirubin Total 0.4 mg/dL (0.2-1.3); Blood Urea Nitrogen 29 mg/dL (7-17); Calcium 8.1 mg/dL (8.4-10.2); Carbon Dioxide 28 mmol/L (22-32); Chloride 102 mmol/L (98-107); Creatine Kinase 50 U/L (30-135); Estimated Glomerular Filt Rate > 60 mL/min (>60); Globulin 3.5 g/dL (1.7-4.1); Glucose 256 mg/dL (70-100); HEMOLYSIS 42 (0-50); Lipase 32 U/L (23-300); Magnesium 1.9 mg/dL (1.6-2.3); Sodium 134 mmol/L (137-145); Total Protein 6.7 g/dL (6.3-8.2)
[2022-07-02] MEDS: SODIUM CHLORIDE 0.9% 1,000 ML 1000 ML IV (12:56)
[2022-07-02 13:04] LABS: NT-proBNP (BNP-Adult 18+) 3830 pg/mL (<125)
[2022-07-02 13:08] LABS: Troponin I < 0.012 ng/mL (0.01-0.034)
[2022-07-02 13:36] LABS: Phosphorous 4.3 mg/dL (2.5-4.5)
[2022-07-02 13:38] LABS: Ketones (Beta-Hydroxybutyrate) 0.31 mmol/L (<0.27)
[2022-07-02 13:45] LABS: COVID19 -Nasal RAPID Negative (Negative)
[2022-07-02] MEDS: HYDROMORPHONE 1 MG INJ IV (13:52)
[2022-07-02] MEDS: FUROSEMIDE 40 MG/4 ML VIAL IV ×2 (13:55→16:20)
--- NOTE | 2022-07-02 16:03 | PM.HP.1 ---
History of Present Illness History of Present Illness Date Patient Seen: 07/02/22 Time Patient Seen: 18:39 Chief complaint: chest heavy/back pain start RT side noving to LT Narrative: Sarabjit Jimenes is a 32yo F with PMH of HFrEF of 45-50%, poorly controlled DM1 with frequent episodes of DKA, kidney stones, and GERD who presents with low back pain and SOB. Found to have pulm edema on CXR and required 2L NC as sats were <88% in ED. Received toradol which didn't help her back pain much, but dilaudid helped more she says. She denies any urinary symptoms. Has been somewhat SOB as well. Says she has been compliant with her home meds including lasix. She denies NV, CP, abd pain, dysuria or diarrhea. Patient History Medical History DKA (diabetic ketoacidoses) History of pyelonephritis Irregular menstrual cycle Migraine headache Nephrolithiasis Noncompliance w/medication treatment due to intermit use of medication Type 1 diabetes mellitus Surgical History History of ureter stent Hx of cataract surgery Hx of local excision of skin lesion Status post cholecystectomy Status post laser lithotripsy of ureteral calculus [place] teeth extracted Family & Social History Family History Father In good health Mother Cardiac disease Social History: household members family Safety & Behavioral: Feels Safe in Current Yes Environment Been Physically Hurt or No Threatened By a Person Tobacco & Substance use: Smoking Status Never smoker alcohol intake never alcohol intake frequency holiday/special occasion Substance Use Type does not use Meds Home Medications and Allergies Home Medications Medication Instructions Recorded Confirmed Type glucose 4 gram chewable tablet 4 gram PO Q15M PRN hypoglycemia 12/12/18 07/02/22 Rx #30 tabs glucagon (human recombinant) 1 mg 1 mg SUBCUT DIRECTED 02/16/19 07/02/22 History solution for injection (Glucagon Emergency Kit) diphenhydramine HCl 50 mg capsule 50 mg PO BEDTIME PRN Sleep 09/29/20 07/02/22 History ondansetron 4 mg disintegrating 4 mg PO Q8H PRN nausea and 11/08/21 07/02/22 Rx tablet vomiting #10 tabs insulin degludec 200 unit/mL (3 See Rx Instructions .Route .COMPLEX 11/13/21 07/02/22 History mL) subcutaneous pen (Tresiba FlexTouch U-200 insulin) pantoprazole 40 mg tablet,delayed 40 mg PO BEDTIME 11/13/21 07/02/22 History release sennosides 8.6 mg tablet (senna) 8.6 mg PO PRN PRN Constipation 11/13/21 07/02/22 History acetaminophen 325 mg tablet 975 mg PO Q8H #30 tabs 11/18/21 07/02/22 Rx naloxone 4 mg/actuation nasal 1 spray intranasal Q2M #2 ea 11/18/21 07/02/22 Rx spray (Narcan) ondansetron 4 mg disintegrating 4 mg PO Q8H PRN nausea and 03/18/22 07/02/22 Rx tablet vomiting #15 tabs furosemide 20 mg tablet 20 mg PO DAILY 30 days #30 tabs 06/20/22 07/02/22 Rx losartan 25 mg tablet 25 mg PO DAILY 30 days #30 tabs 06/20/22 07/02/22 Rx metoprolol tartrate 25 mg tablet 25 mg PO BID 30 days #60 tabs 06/20/22 07/02/22 Rx atropine 1 % eye drops 1 drp ophthalmic (eye) BEDTIME 07/02/22 07/02/22 History brinzolamide 1 %-brimonidine 0.2 % 1 drp ophthalmic (eye) BID 07/02/22 07/02/22 History eye drops,suspension (Simbrinza) insulin lispro 100 unit/mL See Rx Instructions .Route .COMPLEX 07/02/22 History subcutaneous solution (Humalog U-100 Insulin) latanoprost 0.005 % eye drops 1 drp ophthalmic (eye) BEDTIME 07/02/22 07/02/22 History timolol maleate 0.5 % eye drops 1 drp ophthalmic (eye) BID 07/02/22 07/02/22 History Allergies Allergy/AdvReac Type Severity Reaction Status Date / Time abdalla [ABDALLA] Allergy Intermediate Hives, Verified 07/02/22 12:02 pruritus iodine [IODINE] Allergy Intermediate rash, itchy Verified 07/02/22 12:02 morphine Allergy Intermediate Difficulty Verified 07/02/22 12:02 Breathing shellfish derived Allergy Intermediate rash Verified 07/02/22 12:02 [SHELLFISH DERIVED] adhesive [ADHESIVE] Allergy Unknown tape Verified 07/02/22 12:02 latex [LATEX] Allergy Unknown Hives Verified 07/02/22 12:02 Review of Systems Review of Systems Narrative: All other systems reviewed with the patient and are negative unless otherwise stated. Exam Vital Signs (past 8 hours): - 07/02/22 12:00 07/02/22 11:58 07/02/22 11:59 Temperature 97.8 F Pulse Rate 85 85 Respiratory Rate 12 Blood Pressure 135/88 135/88 Pulse Oximetry 92 88 L Oxygen Delivery Method Room Air Room Air Oxygen Flow Rate 07/02/22 12:00 07/02/22 12:30 07/02/22 13:00 Temperature Pulse Rate 85 82 83 Respiratory Rate 60 H 10 L 11 L Blood Pressure Pulse Oximetry 92 97 96 Oxygen Delivery Method Nasal Cannula Oxygen Flow Rate 2 07/02/22 13:30 07/02/22 13:54 07/02/22 13:54 Temperature Pulse Rate 83 84 Respiratory Rate 11 L 10 L Blood Pressure 181/96 H Pulse Oximetry 96 94 Oxygen Delivery Method Oxygen Flow Rate 07/02/22 14:00 07/02/22 14:00 07/02/22 14:30 Temperature Pulse Rate 81 Respiratory Rate 11 L Blood Pressure 163/85 H 138/77 Pulse Oximetry 93 Oxygen Delivery Method Oxygen Flow Rate 07/02/22 14:30 07/02/22 15:05 07/02/22 15:30 Temperature Pulse Rate 83 86 Respiratory Rate 13 15 Blood Pressure 128/83 Pulse Oximetry 92 Oxygen Delivery Method Oxygen Flow Rate 07/02/22 15:30 Temperature Pulse Rate 82 Respiratory Rate 10 L Blood Pressure Pulse Oximetry 94 Oxygen Delivery Method Oxygen Flow Rate Oxygen Delivery Method Nasal Cannula Oxygen Flow Rate 2 Narrative Exam Narrative: GEN: no acute distress, appears fatigued and on 2L NC HEENT: moist mucous membranes, PERRL NECK: trachea midline, no JVD CV: regular rate and rhythm, no murmurs PULM: bilateral rales ABD: soft, nontender, nondistended, no organomegaly BACK: bilateral pain to paraspinal lumbar with palpation, Jorgito's sign positive EXT: warm and well perfused with no edema NEURO: awake, alert, oriented, no focal deficits Objective Labs 03/13/23 12:20 07/02/22 12:20 Labs: Laboratory Results - last 24 hr 07/02/22 07/02/22 07/02/22 12:20 12:20 12:20 WBC 12.9 H RBC 4.01 Hgb 10.6 L Hct 33.7 L MCV 84.0 MCH 26.4 MCHC 31.5 RDW 14.5 Plt Count 440 H Neut % (Auto) 70.8 Lymph % (Auto) 16.6 L [place] % (Auto) 5.3 Eos % (Auto) 6.3 H Baso % (Auto) 1.0 Neut # (Auto) 9100 H Lymph # (Auto) 2100 [place] # (Auto) 700 Eos # (Auto) 800 H Baso # (Auto) 100 PT 11.4 INR 1.0 APTT 38 H Sodium 134 L Potassium 5.0 Chloride 102 Carbon Dioxide 28 BUN 29 H Creatinine 0.53 Estimated GFR > 60 BUN/Creatinine Ratio 54.7 H Glucose 256 H D Calcium 8.1 L Phosphorus Magnesium 1.9 Total Bilirubin 0.4 AST 36 ALT 35 H Alkaline Phosphatase 233 H Total Creatine Kinase 50 CK-MB (CK-2) TNP CK-MB (CK-2) Rel Index TNP Troponin I < 0.012 NT-Pro-B Natriuret Pep Total Protein 6.7 Albumin 3.2 L Globulin 3.5 Albumin/Globulin Ratio 0.9 L Lipase 32 D Ketones SARS-CoV-2 (PCR) 07/02/22 07/02/22 07/02/22 12:20 12:20 12:55 WBC RBC Hgb Hct MCV MCH MCHC RDW Plt Count Neut % (Auto) Lymph % (Auto) [place] % (Auto) Eos % (Auto) Baso % (Auto) Neut # (Auto) Lymph # (Auto) [place] # (Auto) Eos # (Auto) Baso # (Auto) PT INR APTT Sodium Potassium Chloride Carbon Dioxide BUN Creatinine Estimated GFR BUN/Creatinine Ratio Glucose Calcium Phosphorus 4.3 D Magnesium Total Bilirubin AST ALT Alkaline Phosphatase Total Creatine Kinase CK-MB (CK-2) CK-MB (CK-2) Rel Index Troponin I NT-Pro-B Natriuret Pep 3830 H Total Protein Albumin Globulin Albumin/Globulin Ratio Lipase Ketones 0.31 H SARS-CoV-2 (PCR) Negative Assessment & Plan Assessment & Plan narrative: # Acute hypercapnic respiratory failure with hypoxia secondary to CHF exacerbation, present on admission -initially requiring 2 L nasal cannula, patient was saturating <88% on room air in ED -Lasix 40mg IV BID -chest x-ray shows pulm edema -previous echo on 06/17 shows EF of 40-45% with global hypokinesis. Since was only weeks ago will not repeat -continue metoprolol 25mg BID and losartan 25 daily -will consider torsemide po instead of lasix on discharge # bilateral flank pain -UA with hematuria and patient has h/o kidney stones -renal US ordered -dilaudid PRN for pain as could be MSK # Brittle insulin-dependent type 1 diabetic, with hyperglycemia, acute on chronic, poorly controlled, present on admission -patient has had repeated admissions for DKA -continue lantus 13 units BID with med dose SSI # GERD, chronic, present on admission -continue PPI # Malnutrition, mild, acute on chronic, present on admission -as evidence by BMI 20.8 -patient's malnutrition places them at high risk for medical and surgical complications in relation to acute illness/chronic illness.? This increases the difficulty in complexity of medical management and increases the chances poor outcomes such as mortality and morbidity as well as impaired wound healing, and immune suppression. Code status is full code. COVID negative. DVT prophylaxis with Lovenox. Proxy is mother Argelia. I have reviewed home meds and used all available resources to reconcile the home meds. This patient will be admitted as inpatient and will require greater than 2 midnights of hospital time to treat CHF exacerbation. Time Spent With Patient Critical Care time: I spent a total of [] minutes of critical care time on this patient's care today; this time is exclusive of procedural time.
--- NOTE | 2022-07-02 16:33 | PC.NURSE ---
Report given to RAYNA Richards and pt taken up to floor by RAYNA Arthur and Susie RN
[2022-07-02] MEDS: TRAMADOL 50 MG TABLET PO (16:50)
[2022-07-02] MEDS: INSULIN LISPRO 100 UNIT/ML 3ML VIAL SUBCUT (18:19)
--- NOTE | 2022-07-02 18:38 | DI.US.S_ITS ---
PROCEDURE: US RENAL COMPLETE INDICATIONS: BILATERAL FLANK PAIN HEMATURIA TECHNIQUE: Real-time scanning was performed of the kidneys and bladder, with image documentation. COMPARISON: [facility], , RENAL COMPLETE, 09/30/2019, 8:02. FINDINGS: Kidneys: Kidneys are normal in size. Right kidney measures 10.2 cm long; left kidney measures 10.6 cm long. Right renal cortical thickness is 1.0 cm; left renal cortical thickness is 1.5 cm. Renal cortical echotexture is normal. No hydronephrosis or nephrolithiasis. No suspicious solid mass lesions. Bladder: Pre-void bladder volume is 1059 mL. Post-void residual is 5.4 mL. Pre-void images demonstrate no intraluminal masses or stones. On pre-void images, bilateral ureteral jets were not visualized with color Doppler interrogation. (Of note, ureteral jets may not be detectable in up to 25% of cases due to insufficient differences in specific gravity between ureteral and bladder urine). Additionally, there is urinary bladder wall thickening on postvoid imaging. Miscellaneous: No free pelvic fluid. IMPRESSION: 1. No sonographic evidence for nephrolithiasis or obstructive uropathy/hydronephrosis. 2. Mild thickening of the urinary bladder which may be related to cystitis. Dictated by: Marino Cooper M.D. on 07/02/2022 at 18:25 Approved by: Marino Copoer M.D. on 07/02/2022 at 18:27
[2022-07-02] MEDS: HYDROMORPHONE 0.5 MG INJ IV ×2 (19:39→23:36)
[2022-07-02] MEDS: SODIUM CHLORIDE 0.9% FLUSH 10 ML IV ×2 (19:40→23:37)
[2022-07-02] MEDS: ATROPINE 1% OPHTH 1 DROPS EYE-BOTH (21:09)
[2022-07-02] MEDS: INSULIN GLARGINE 100 UNIT/ML 3ML PEN 13 UNIT SUBCUT (21:09)
[2022-07-02] MEDS: METOPROLOL IR 25 MG TABLET PO (21:10)
[2022-07-02] MEDS: TIMOLOL 0.5% OPHTH 1 DROPS EYE-BOTH (21:10)
[2022-07-02] MEDS: PANTOPRAZOLE DR 20 MG TABLET 40 MG PO (21:10)
[2022-07-02] MEDS: LATANOPROST 0.005% OPHTH 2.5 ML 1 DROPS EYE-BOTH (21:10)
[2022-07-03] VITALS (10 sets, daily range): BP systolic 109–141; BP diastolic 70–97; PULSE 80–91; RESP 14–20; TEMP 36.3–36.9; O2SAT 93–97
--- NOTE | 2022-07-03 00:03 | PC.NURSE ---
Patient is alert and oriented. Breath sounds with inspiratory crackles throughout. Denies SOB, cough or chest pain. Oxygen at 2L/min per NC with sat of 92%. Short time ago found patient with sat of 88% so now increased to 3L/min and sat is 92%. HRR. Denies nausea. BT present and abdomen is soft. Denies dysuria. Is able to turn herself in bed. [place] [facility] [place] and 1 assist. Complains of low back pain and has been medicated twice with IV Dilaudid. Has trace pedal edema bilaterally. Declined to put on SCD's so reminded to ankle wave. Fall risk score is high and bed alarm is activated.
[2022-07-03] MEDS: SODIUM CHLORIDE 0.9% FLUSH 10 ML IV ×3 (04:13→21:40)
[2022-07-03] MEDS: HYDROMORPHONE 0.5 MG INJ IV ×5 (04:13→20:18)
[2022-07-03 05:00] LABS: Add Manual Diff / Slide Review NO; Basophils Absolute Auto 100 /uL (0-100); Basophils Percent Auto 1.1 % (0-2); Eosinophils Absolute Auto 1000 /uL (0-450); Eosinophils Percent Auto 8.6 % (2-4); Hematocrit 31.9 % (36-46); Hemoglobin 10.1 g/dL (12.0-16.0); Lymphocytes Absolute Auto 2200 /uL (1100-4500); Lymphocytes Percent Auto 19.4 % (25-40); Mean Corpuscular HGB Conc 31.8 % (30-36); Mean Corpuscular Hemoglobin 26.7 PG (26-34); Monocytes Absolute Auto 800 /uL (0-900); Monocytes Percent Auto 6.7 % (3-14); Neutrophils Absolute Auto 7300 /uL (1500-7000); Neutrophils Percent Auto 64.2 % (50-75); Platelet Count 427 X10^3/uL (150-400); Red Blood Cell Count 3.79 X10^6/uL (4.0-5.2); Red Cell Distribution Width 14.4 % (11.6-14.8); White Blood Cell Count 11.3 X10^3/uL (4.5-11.0)
[2022-07-03 05:16] LABS: BUN Creatinine Ratio 39.1 (6-22); Blood Urea Nitrogen 25 mg/dL (7-17); Calcium 8.2 mg/dL (8.4-10.2); Carbon Dioxide 33 mmol/L (22-32); Chloride 100 mmol/L (98-107); Estimated Glomerular Filt Rate > 60 mL/min (>60); Glucose 134 mg/dL (70-100); HEMOLYSIS < 15 (0-50); Potassium 4.1 mmol/L (3.4-5.1); Sodium 137 mmol/L (137-145)
[2022-07-03] MEDS: INSULIN LISPRO 100 UNIT/ML 3ML VIAL SUBCUT (08:12)
[2022-07-03] MEDS: INSULIN GLARGINE 100 UNIT/ML 3ML PEN 13 UNIT SUBCUT ×2 (08:15→20:29)
[2022-07-03] MEDS: TIMOLOL 0.5% OPHTH 1 DROPS EYE-BOTH ×2 (08:17→20:29)
[2022-07-03] MEDS: LOSARTAN 25 MG TABLET PO (08:18)
[2022-07-03] MEDS: FUROSEMIDE 40 MG/4 ML VIAL IV ×2 (08:18→16:07)
[2022-07-03] MEDS: METOPROLOL IR 25 MG TABLET PO ×2 (08:19→20:18)
[2022-07-03] MEDS: SENNOSIDES 8.6 MG TABLET PO (08:19)
--- NOTE | 2022-07-03 08:41 | P.PN_ITS ---
Subjective Subjective Interval history: Patient notes her breathing is somewhat improved, but still feels like she is drowning sometimes. RT qualified her for home O2. Exam Vital Signs (past 8 hours): - 07/03/22 02:00 07/03/22 03:36 07/03/22 05:59 Temperature 98.4 F 97.9 F Pulse Rate 82 80 Respiratory Rate 20 14 Blood Pressure 112/70 109/76 Pulse Oximetry 96 94 97 Oxygen Delivery Method Nasal Cannula Oxygen Flow Rate 3 3 2 07/03/22 08:18 Temperature Pulse Rate 82 Respiratory Rate Blood Pressure 135/87 Pulse Oximetry Oxygen Delivery Method Oxygen Flow Rate Fraction of Inspired Oxygen 28 Oxygen Delivery Method Nasal Cannula Oxygen Flow Rate 2 Narrative Exam Narrative: GEN: no acute distress, appears fatigued and on 2L NC HEENT: moist mucous membranes, PERRL NECK: trachea midline, no JVD CV: regular rate and rhythm, no murmurs PULM: bilateral rales ABD: soft, nontender, nondistended, no organomegaly BACK: bilateral pain to paraspinal lumbar with palpation, Jorgito's sign positive EXT: warm and well perfused with no edema NEURO: awake, alert, oriented, no focal deficits Objective Labs 07/03/22 04:27 07/03/22 04:27 Labs: Laboratory Results - last 24 hr 07/02/22 07/02/22 07/02/22 12:20 12:20 12:20 WBC 12.9 H RBC 4.01 Hgb 10.6 L Hct 33.7 L MCV 84.0 MCH 26.4 MCHC 31.5 RDW 14.5 Plt Count 440 H Neut % (Auto) 70.8 Lymph % (Auto) 16.6 L [place] % (Auto) 5.3 Eos % (Auto) 6.3 H Baso % (Auto) 1.0 Neut # (Auto) 9100 H Lymph # (Auto) 2100 [place] # (Auto) 700 Eos # (Auto) 800 H Baso # (Auto) 100 PT 11.4 INR 1.0 APTT 38 H Sodium 134 L Potassium 5.0 Chloride 102 Carbon Dioxide 28 BUN 29 H Creatinine 0.53 Estimated GFR > 60 BUN/Creatinine Ratio 54.7 H Glucose 256 H D Calcium 8.1 L Phosphorus Magnesium 1.9 Total Bilirubin 0.4 AST 36 ALT 35 H Alkaline Phosphatase 233 H Total Creatine Kinase 50 CK-MB (CK-2) TNP CK-MB (CK-2) Rel Index TNP Troponin I < 0.012 NT-Pro-B Natriuret Pep Total Protein 6.7 Albumin 3.2 L Globulin 3.5 Albumin/Globulin Ratio 0.9 L Lipase 32 D Ketones SARS-CoV-2 (PCR) 07/02/22 07/02/22 07/02/22 12:20 12:20 12:55 WBC RBC Hgb Hct MCV MCH MCHC RDW Plt Count Neut % (Auto) Lymph % (Auto) [place] % (Auto) Eos % (Auto) Baso % (Auto) Neut # (Auto) Lymph # (Auto) [place] # (Auto) Eos # (Auto) Baso # (Auto) PT INR APTT Sodium Potassium Chloride Carbon Dioxide BUN Creatinine Estimated GFR BUN/Creatinine Ratio Glucose Calcium Phosphorus 4.3 D Magnesium Total Bilirubin AST ALT Alkaline Phosphatase Total Creatine Kinase CK-MB (CK-2) CK-MB (CK-2) Rel Index Troponin I NT-Pro-B Natriuret Pep 3830 H Total Protein Albumin Globulin Albumin/Globulin Ratio Lipase Ketones 0.31 H SARS-CoV-2 (PCR) Negative 07/03/22 07/03/22 04:27 04:27 WBC 11.3 H RBC 3.79 L Hgb 10.1 L Hct 31.9 L MCV 84.0 MCH 26.7 MCHC 31.8 RDW 14.4 Plt Count 427 H Neut % (Auto) 64.2 Lymph % (Auto) 19.4 L [place] % (Auto) 6.7 Eos % (Auto) 8.6 H Baso % (Auto) 1.1 Neut # (Auto) 7300 H Lymph # (Auto) 2200 [place] # (Auto) 800 Eos # (Auto) 1000 H Baso # (Auto) 100 PT INR APTT Sodium 137 Potassium 4.1 Chloride 100 Carbon Dioxide 33 H BUN 25 H Creatinine 0.64 Estimated GFR > 60 BUN/Creatinine Ratio 39.1 H Glucose 134 H D Calcium 8.2 L Phosphorus Magnesium Total Bilirubin AST ALT Alkaline Phosphatase Total Creatine Kinase CK-MB (CK-2) CK-MB (CK-2) Rel Index Troponin I NT-Pro-B Natriuret Pep Total Protein Albumin Globulin Albumin/Globulin Ratio Lipase Ketones SARS-CoV-2 (PCR) [facility] Medical History DKA (diabetic ketoacidoses) History of pyelonephritis Irregular menstrual cycle Migraine headache Nephrolithiasis Noncompliance w/medication treatment due to intermit use of medication Type 1 diabetes mellitus Surgical History History of ureter stent Hx of cataract surgery Hx of local excision of skin lesion Status post cholecystectomy Status post laser lithotripsy of ureteral calculus [place] teeth extracted Family History Father In good health Mother Cardiac disease Social History details: Engaged household members: family Smoking Status: Never smoker alcohol intake: never Assessment & Plan Assessment & Plan narrative: # Acute hypercapnic respiratory failure with hypoxia secondary to CHF exacerbation, present on admission -initially requiring 2 L nasal cannula, patient was saturating <88% on room air in ED -Lasix 40mg IV BID -chest x-ray shows pulm edema -previous echo on 06/17 shows EF of 40-45% with global hypokinesis. Since was only weeks ago will not repeat -continue metoprolol 25mg BID and losartan 25 daily -will consider torsemide po instead of lasix on discharge -RT qualified pt for home O2 # bilateral flank pain -UA with hematuria and patient has h/o kidney stones, no pyuria -renal US negative -oxy, dilaudid PRN for pain as could be MSK # Brittle insulin-dependent type 1 diabetic, with hyperglycemia, acute on chronic, poorly controlled, present on admission -patient has had repeated admissions for DKA -continue lantus 13 units BID with med dose SSI # GERD, chronic, present on admission -continue PPI # Malnutrition, mild, acute on chronic, present on admission -as evidence by BMI 20.8 -patient's malnutrition places them at high risk for medical and surgical complications in relation to acute illness/chronic illness.? This increases the difficulty in complexity of medical management and increases the chances poor outcomes such as mortality and morbidity as well as impaired wound healing, and immune suppression. Code status is full code. COVID negative. DVT prophylaxis with Lovenox. Proxy is mother Argelia. Dispo: Home in 1-2 days. Time Spent With Patient Critical Care time: I spent a total of [] minutes of critical care time on this patient's care today; this time is exclusive of procedural time. Quality VTE Deep Vein Thrombosis/Pulmonary Embolism Present on Admission: No
[2022-07-03 10:09] LABS: Appearance Urine UA CLEAR; Bilirubin Urine UA NEGATIVE (NEGATIVE); Color Urine UA YELLOW; Glucose Urine UA NEGATIVE (Negative); Ketones Urine UA NEGATIVE (NEGATIVE); Leukocyte Esterase Urine UA NEGATIVE (NEGATIVE); Nitrite Urine UA NEGATIVE (Negative); Occult Blood Urine UA 1+ (Negative); Protein Urine UA 3+ (Negative); Urobilinogen Urine UA 0.2 E.U./dL (0.2)
[2022-07-03 10:20] LABS: Bacteria Urine None Seen; RBC Urine 1-5/HPF (0-5/HPF); Squamous Epithelial Cell Urine 1-5 /HPF (0-5/HPF); WBC Urine 1-5/HPF (0-5/HPF)
[2022-07-03 10:21] LABS: Culture Indicated Urine Cult Not Indicated
--- NOTE | 2022-07-03 13:59 | CM.DANOTE ---
Patient is a 32 yo female PAT who was admitted on 07/02/22 for Back Pain/Heavy Chest. Pt has [employer]KAYLA MESSER and RENE for insurance and her PCP is Maria Ines Limon. EMR was reviewed. Per MD, pt SOB and currently on 3LO2 and needs diuresis. RT to assess for home oxygen towards determining if pt qualifies and this could help reduce her risk of readmission. Pt was last admitted on 06/17/22-06/20/22 for Acute Resp Failure and discharged home with mom. SW met bedside with pt, mother had gone home, and she confirms that she is still living with her mom and mom has been very helpful in getting pt to her appointments including Ortho for her ongoing knee and foot pain, attending outpt PT at [facility] and making some progress, and PCP in [facility]. Pt has been using a walker and w/c on occasion when she is having a painful day. Pt confirms that she still has [employer] Dave involved and they call him from time to time when they need assist or resources and she feels he has been helpful. Dave aware that pt admitted to the hospital again. Pt states her mom is still working cleaning houses but has cut back a lot on her work and makes sure she is home in the afternoons and available for transport to appointments. Pt feels very supported by her mom. Pt does not anticipate any further needs at d/c and preference is home tomorrow if stable and plans to continue outpt PT. Plan: SW to follow for plan of possible d/c home tomorrow if medically stable and RT to assess for new home O2 and any further identified discharge needs. RAYMOND Roman Discharge Planning/Care Management CM Discharge Assessment Start: 07/03/22 13:56 Freq: Status: Active Protocol: Document 07/03/22 13:56 BF (Rec: 07/03/22 13:59 BF [id number]) Discharge Planning Assessment Assigned Academic Hospitalist RAYMOND Brannon DPOA/Assigned Designee Name informally mother Argelia Contact Information [phone] Advance Directives? No Advance Directives on File No History Provided By Patient,Family Member,Medical Record Has Patient been admitted in last 30 Yes days? Comment last admission 06/17/22-06/20/22 for similar, discharged home Prior Living Arrangements House Household Members family Type of transporation used prior to Relies on Others admit Independent with ADL's No Is patient alert and oriented? Yes Needs Assistance With Meal Prep,Managing Medications ,Home Chores / Shopping Caregiver for Another No DME Already Rented / Owned Wheelchair,FWW / Walker Patient/Family Preference OP PT Therapy Barriers to Discharge No Comment PCP is Dr. Limon at [facility]# [phone]. Discharge Plan Home Transportation Arrangement Family Referrals Initiated Respiratory Therapy Additional Comment RT to assess for possible new Home Oxygen. Pt has been going to see detector car operator on an outpatient basis and also [facility] Whiteboard Updated in Patient Room with Yes name and ext. # of Academic Hospitalist Review Status In Process Please Provide Date Initial DC 07/03/22 Assessment Was Performed Next Review Type Continued Stay Review
[2022-07-03] MEDS: OXYCODONE IR 5 MG TABLET PO ×2 (16:07→20:18)
[2022-07-03] MEDS: PANTOPRAZOLE DR 20 MG TABLET 40 MG PO (20:18)
[2022-07-03] MEDS: LATANOPROST 0.005% OPHTH 2.5 ML 1 DROPS EYE-BOTH (20:28)
[2022-07-03] MEDS: ATROPINE 1% OPHTH 1 DROPS EYE-BOTH (20:28)
[2022-07-03] MEDS: BRINZOLAMIDE BRIMONIDINE 1 EACH EYE-BOTH (21:30)
[2022-07-04] VITALS (10 sets, daily range): BP systolic 99–149; BP diastolic 56–97; PULSE 81–93; RESP 18–20; TEMP 36.3–36.6; O2SAT 92–99
[2022-07-04] MEDS: HYDROMORPHONE 0.5 MG INJ IV ×6 (00:05→20:10)
[2022-07-04] MEDS: OXYCODONE IR 5 MG TABLET PO ×2 (00:06→04:44)
[2022-07-04 05:30] LABS: Add Manual Diff / Slide Review NO; Basophils Absolute Auto 100 /uL (0-100); Basophils Percent Auto 1.2 % (0-2); Eosinophils Absolute Auto 800 /uL (0-450); Eosinophils Percent Auto 7.9 % (2-4); Hematocrit 33.1 % (36-46); Hemoglobin 10.7 g/dL (12.0-16.0); Lymphocytes Absolute Auto 2100 /uL (1100-4500); Mean Corpuscular HGB Conc 32.3 % (30-36); Mean Corpuscular Volume 83.4 fL (80-100); Monocytes Absolute Auto 700 /uL (0-900); Monocytes Percent Auto 7.4 % (3-14); Neutrophils Absolute Auto 5900 /uL (1500-7000); Neutrophils Percent Auto 61.5 % (50-75); Platelet Count 475 X10^3/uL (150-400); Red Blood Cell Count 3.97 X10^6/uL (4.0-5.2); Red Cell Distribution Width 14.3 % (11.6-14.8); White Blood Cell Count 9.6 X10^3/uL (4.5-11.0)
[2022-07-04 05:45] LABS: BUN Creatinine Ratio 37.3 (6-22); Blood Urea Nitrogen 22 mg/dL (7-17); Calcium 8.4 mg/dL (8.4-10.2); Carbon Dioxide 34 mmol/L (22-32); Chloride 99 mmol/L (98-107); Estimated Glomerular Filt Rate > 60 mL/min (>60); Glucose 77 mg/dL (70-100); HEMOLYSIS < 15 (0-50); Potassium 3.8 mmol/L (3.4-5.1); Sodium 138 mmol/L (137-145)
[2022-07-04] MEDS: LOSARTAN 25 MG TABLET PO (08:44)
[2022-07-04] MEDS: FUROSEMIDE 40 MG/4 ML VIAL IV ×2 (08:44→16:41)
[2022-07-04] MEDS: BRINZOLAMIDE BRIMONIDINE 1 EACH EYE-BOTH ×2 (08:44→20:13)
[2022-07-04] MEDS: INSULIN GLARGINE 100 UNIT/ML 3ML PEN 13 UNIT SUBCUT (08:45)
[2022-07-04] MEDS: METOPROLOL IR 25 MG TABLET PO ×2 (08:45→20:13)
[2022-07-04] MEDS: INSULIN LISPRO 100 UNIT/ML 3ML VIAL SUBCUT (08:46)
[2022-07-04] MEDS: SODIUM CHLORIDE 0.9% FLUSH 10 ML IV ×2 (09:25→20:11)
[2022-07-04] MEDS: TIMOLOL 0.5% OPHTH 1 DROPS EYE-BOTH ×2 (09:25→20:13)
[2022-07-04] MEDS: ONDANSETRON 4 MG/2 ML INJ IV (13:08)
--- NOTE | 2022-07-04 14:25 | PM.PN.1 ---
Subjective Subjective Date Patient Seen: 07/04/22 Interval history: Patient can not say if breathing improved or not. O2 sat did drop to 88% on room air. She is getting diuresed with IV Lasix, so far net -4 L since admission. Also wonder if there is significant component of atelectasis as patient is quite sedentary with tendency towards shallow breathing. Exam Vital Signs (past 8 hours): - 07/04/22 08:44 07/04/22 07:00 07/04/22 08:00 Temperature Pulse Rate 91 H Respiratory Rate Blood Pressure 149/97 H Pulse Oximetry 92 Oxygen Delivery Method Nasal Cannula Humidification Nasal Cannula Humidification Oxygen Flow Rate 0 07/04/22 12:00 07/04/22 12:00 Temperature 97.3 F L Pulse Rate 81 Respiratory Rate 19 Blood Pressure 99/56 L Pulse Oximetry 96 92 Oxygen Delivery Method Nasal Cannula Humidification Oxygen Flow Rate 4 4 Fraction of Inspired Oxygen 28 Oxygen Delivery Method Nasal Cannula,Humidification Oxygen Flow Rate 4 Narrative Exam Narrative: General: Alert, pleasant and in no acute distress Lungs: Diminished breath sounds, fine crackles predominantly on the left Cardiac: Regular rhythm Extremities: No edema Objective Labs 07/04/22 04:49 07/04/22 04:49 Labs: Laboratory Results - last 24 hr 07/04/22 07/04/22 04:49 04:49 WBC 9.6 RBC 3.97 L Hgb 10.7 L Hct 33.1 L MCV 83.4 MCH 27.0 MCHC 32.3 RDW 14.3 Plt Count 475 H Neut % (Auto) 61.5 Lymph % (Auto) 22.0 L [place] % (Auto) 7.4 Eos % (Auto) 7.9 H Baso % (Auto) 1.2 Neut # (Auto) 5900 Lymph # (Auto) 2100 [place] # (Auto) 700 Eos # (Auto) 800 H Baso # (Auto) 100 Sodium 138 Potassium 3.8 Chloride 99 Carbon Dioxide 34 H BUN 22 H Creatinine 0.59 Estimated GFR > 60 BUN/Creatinine Ratio 37.3 H Glucose 77 Calcium 8.4 PFSH Medical History DKA (diabetic ketoacidoses) History of pyelonephritis Irregular menstrual cycle Migraine headache Nephrolithiasis Noncompliance w/medication treatment due to intermit use of medication Type 1 diabetes mellitus Surgical History History of ureter stent Hx of cataract surgery Hx of local excision of skin lesion Status post cholecystectomy Status post laser lithotripsy of ureteral calculus [place] teeth extracted Family History Father In good health Mother Cardiac disease Social History details: Engaged household members: family Smoking Status: Never smoker alcohol intake: never Assessment & Plan Assessment & Plan narrative: # Acute respiratory failure with hypoxia secondary to CHF exacerbation, and likely atelectasis, present on admission -initially requiring 2 L nasal cannula, patient was saturating <88% on room air in ED -Lasix 40mg IV BID -chest x-ray c/w pulm edema -previous echo on 06/17 shows EF of 40-45% with global hypokinesis. Since was only weeks ago will not repeat -continue metoprolol 25mg BID and losartan 25 daily -will consider torsemide po versus increase Lasix dose on discharge -RT qualified pt for home O2 -incentive spirometry, encourage patient to use -likely home tomorrow, # bilateral flank pain -UA with hematuria and patient has h/o kidney stones, no pyuria -renal US negative -oxy, dilaudid PRN for pain as could be MSK # Brittle insulin-dependent type 1 diabetic, with hyperglycemia, acute on chronic, poorly controlled, present on admission -patient has had repeated admissions for DKA -continue lantus 13 units BID with med dose SSI # GERD, chronic, present on admission -continue PPI # Malnutrition, mild, acute on chronic, present on admission -as evidence by BMI 20.8 -patient's malnutrition places them at high risk for medical and surgical complications in relation to acute illness/chronic illness.? This increases the difficulty in complexity of medical management and increases the chances poor outcomes such as mortality and morbidity as well as impaired wound healing, and immune suppression. Code status is full code. COVID negative. DVT prophylaxis with Lovenox. Proxy is mother Argelia. Time Spent With Patient Critical Care time: I spent a total of [] minutes of critical care time on this patient's care today; this time is exclusive of procedural time. Quality VTE Deep Vein Thrombosis/Pulmonary Embolism Present on Admission: No
[2022-07-04] MEDS: LATANOPROST 0.005% OPHTH 2.5 ML 1 DROPS EYE-BOTH (20:13)
[2022-07-04] MEDS: ATROPINE 1% OPHTH 1 DROPS EYE-BOTH (20:13)
[2022-07-04] MEDS: PANTOPRAZOLE DR 20 MG TABLET 40 MG PO (20:13)
[2022-07-05] VITALS (7 sets, daily range): BP systolic 109–131; BP diastolic 71–84; PULSE 79–90; RESP 15–16; TEMP 36.6–36.8; O2SAT 93–99
[2022-07-05] MEDS: HYDROMORPHONE 0.5 MG INJ IV ×4 (00:31→11:48)
[2022-07-05 05:04] LABS: Add Manual Diff / Slide Review NO; Basophils Absolute Auto 100 /uL (0-100); Eosinophils Absolute Auto 600 /uL (0-450); Eosinophils Percent Auto 7.7 % (2-4); Hematocrit 33.2 % (36-46); Hemoglobin 10.7 g/dL (12.0-16.0); Lymphocytes Absolute Auto 1600 /uL (1100-4500); Lymphocytes Percent Auto 22.6 % (25-40); Mean Corpuscular HGB Conc 32.2 % (30-36); Mean Corpuscular Volume 83.8 fL (80-100); Monocytes Absolute Auto 600 /uL (0-900); Monocytes Percent Auto 8.1 % (3-14); Neutrophils Absolute Auto 4400 /uL (1500-7000); Neutrophils Percent Auto 60.6 % (50-75); Platelet Count 458 X10^3/uL (150-400); Red Blood Cell Count 3.96 X10^6/uL (4.0-5.2); Red Cell Distribution Width 14.3 % (11.6-14.8); White Blood Cell Count 7.2 X10^3/uL (4.5-11.0)
[2022-07-05 05:13] LABS: BUN Creatinine Ratio 29.7 (6-22); Blood Urea Nitrogen 22 mg/dL (7-17); Calcium 8.2 mg/dL (8.4-10.2); Carbon Dioxide 33 mmol/L (22-32); Chloride 99 mmol/L (98-107); Estimated Glomerular Filt Rate > 60 mL/min (>60); Glucose 157 mg/dL (70-100); HEMOLYSIS < 15 (0-50); Potassium 4.2 mmol/L (3.4-5.1); Sodium 136 mmol/L (137-145)
--- NOTE | 2022-07-05 07:41 | P.PN_ITS ---
Subjective Subjective Interval history: Exam Vital Signs (past 8 hours): - 07/05/22 00:00 07/05/22 00:00 07/04/22 23:45 Temperature 97.9 F Pulse Rate 88 85 Respiratory Rate 16 Blood Pressure 115/78 Pulse Oximetry 93 98 95 Oxygen Delivery Method Nasal Cannula Humidification Nasal Cannula Oxygen Flow Rate 2 2 2 Fraction of Inspired Oxygen 28 07/05/22 04:00 07/05/22 06:00 Temperature 98.2 F Pulse Rate 83 Respiratory Rate 15 Blood Pressure 109/71 Pulse Oximetry 98 95 Oxygen Delivery Method Room Air Oxygen Flow Rate 2 2 Fraction of Inspired Oxygen Fraction of Inspired Oxygen 28 SaO2/FiO2 Ratio 339 Oxygen Delivery Method Room Air Oxygen Flow Rate 2 Narrative Exam Narrative: General: Alert, pleasant and in no acute distress Lungs: Diminished breath sounds, fine crackles predominantly on the left Cardiac: Regular rhythm Extremities: No edema Objective Labs 07/05/22 04:42 07/05/22 04:42 Labs: Laboratory Results - last 24 hr 07/05/22 07/05/22 04:42 04:42 WBC 7.2 RBC 3.96 L Hgb 10.7 L Hct 33.2 L MCV 83.8 MCH 27.0 MCHC 32.2 RDW 14.3 Plt Count 458 H Neut % (Auto) 60.6 Lymph % (Auto) 22.6 L [place] % (Auto) 8.1 Eos % (Auto) 7.7 H Baso % (Auto) 1.0 Neut # (Auto) 4400 Lymph # (Auto) 1600 [place] # (Auto) 600 Eos # (Auto) 600 H Baso # (Auto) 100 Sodium 136 L Potassium 4.2 Chloride 99 Carbon Dioxide 33 H BUN 22 H Creatinine 0.74 Estimated GFR > 60 BUN/Creatinine Ratio 29.7 H Glucose 157 H Calcium 8.2 L PFSH Medical History DKA (diabetic ketoacidoses) History of pyelonephritis Irregular menstrual cycle Migraine headache Nephrolithiasis Noncompliance w/medication treatment due to intermit use of medication Type 1 diabetes mellitus Surgical History History of ureter stent Hx of cataract surgery Hx of local excision of skin lesion Status post cholecystectomy Status post laser lithotripsy of ureteral calculus [place] teeth extracted Family History Father In good health Mother Cardiac disease Social History details: Engaged household members: family Smoking Status: Never smoker alcohol intake: never Assessment & Plan Assessment & Plan narrative: # Acute respiratory failure with hypoxia secondary to CHF exacerbation, and likely atelectasis, present on admission -initially requiring 2 L nasal cannula, patient was saturating <88% on room air in ED -Lasix 40mg IV BID -chest x-ray c/w pulm edema -previous echo on 06/17 shows EF of 40-45% with global hypokinesis. Since was only weeks ago will not repeat -continue metoprolol 25mg BID and losartan 25 daily -will consider torsemide po versus increase Lasix dose on discharge -RT qualified pt for home O2 -incentive spirometry, encourage patient to use -likely home tomorrow, # bilateral flank pain -UA with hematuria and patient has h/o kidney stones, no pyuria -renal US negative -oxy, dilaudid PRN for pain as could be MSK # Brittle insulin-dependent type 1 diabetic, with hyperglycemia, acute on chronic, poorly controlled, present on admission -patient has had repeated admissions for DKA -continue lantus 13 units BID with med dose SSI # GERD, chronic, present on admission -continue PPI # Malnutrition, mild, acute on chronic, present on admission -as evidence by BMI 20.8 -patient's malnutrition places them at high risk for medical and surgical complications in relation to acute illness/chronic illness.? This increases the difficulty in complexity of medical management and increases the chances poor outcomes such as mortality and morbidity as well as impaired wound healing, and immune suppression. Code status is full code. COVID negative. DVT prophylaxis with Lovenox. Proxy is mother Argelia. Quality VTE Deep Vein Thrombosis/Pulmonary Embolism Present on Admission: No
[2022-07-05] MEDS: LOSARTAN 25 MG TABLET PO (08:12)
[2022-07-05] MEDS: METOPROLOL IR 25 MG TABLET PO (08:12)
[2022-07-05] MEDS: SODIUM CHLORIDE 0.9% FLUSH 10 ML IV (08:12)
[2022-07-05] MEDS: TIMOLOL 0.5% OPHTH 1 DROPS EYE-BOTH (08:16)
[2022-07-05] MEDS: BRINZOLAMIDE BRIMONIDINE 1 EACH EYE-BOTH (08:17)
[2022-07-05] MEDS: INSULIN GLARGINE 100 UNIT/ML 3ML PEN 13 UNIT SUBCUT (08:19)
[2022-07-05] MEDS: FUROSEMIDE 40 MG/4 ML VIAL IV (08:53)
--- NOTE | 2022-07-05 11:27 | P.DS_ITS ---
History of Present Illness History of Present Illness Chief complaint: chest heavy/back pain start RT side noving to LT Narrative: Sarabjit Jimenes is a 32yo F with PMH of HFrEF of 45-50%, poorly controlled DM1 with frequent episodes of DKA, kidney stones, and GERD who presents with low back pain and SOB. Found to have pulm edema on CXR and required 2L NC as sats were <88% in ED. Received toradol which didn't help her back pain much, but dilaudid helped more she says. She denies any urinary symptoms. Has been somewhat SOB as well. Says she has been compliant with her home meds including lasix. She denies NV, CP, abd pain, dysuria or diarrhea. Discharge Providers Provider Date of admission: 07/02/22 16:07 Discharge Date: 07/05/22 Primary care physician: Maria Ines Limon DO Discharge provider: Pedro Servin MD Summary Hospital Course Discharge Diagnosis: 1. Acute hypoxic repiratory failure, likely fibrosis/inflammation due to recent severe pneumonia 2. Possible exacerbation of heart failure with reduced EF 3. Type 1 diabetes without DKA 4. Mild protein calorie malnutrition Hospital Course: Pt was admitted with initial diagnosis of heart failure exacerbation. Previous echo on 06/17 showed EF of 40-45% with global hypokinesis. Pt was diuresed 4400 cc negative fluid balance with IV Lasix. She continues dyspneic and requiring supplemental O2 with exertion. Lung exam with prominent fine inspiratory crackles more typical of pulmonary fibrosis. She was admitted to hospital last month with severe pneumonia. Repeat chest CT on 06/27/22 revealed persistent areas of confluent septal thickening with associated patchy areas of consolidation and ground-glass opacities and interval resolution of previously visualized bilateral pleural effusions. She appears well diuresed at this time. Most likely current respiratory symptoms and hypoxia are related to inflammatory changes and/or fibrosis secondary to recent severe pneumonia. Recommend a repeat non-contrast chest CT in 2 months if patient is still requ iring O2 or experiencing dyspnea. Also changed her diuretic from furosemide 20 to torsemide 20 for more effective diuresis, although again it's not evident that symptoms were due to pulmonary edema. Status at Discharge Cognitive/behavioral status at discharge: oriented Functional status at discharge: independent ambulation Overall status at discharge: patient is not back to baseline Time Spent with Patient Time spent: Greater than 30 minutes Exam Vital Signs (past 8 hours): - 07/05/22 04:00 07/05/22 06:00 07/05/22 08:12 Temperature 98.2 F Pulse Rate 83 87 Respiratory Rate 15 Blood Pressure 109/71 131/84 Pulse Oximetry 98 95 Oxygen Delivery Method Room Air Oxygen Flow Rate 2 2 07/05/22 08:00 07/05/22 08:17 07/05/22 08:17 Temperature 98.3 F Pulse Rate 90 Respiratory Rate 15 Blood Pressure 131/84 Pulse Oximetry 98 98 Oxygen Delivery Method Nasal Cannula Nasal Cannula Oxygen Flow Rate 0 2 Fraction of Inspired Oxygen 28 SaO2/FiO2 Ratio 339 Oxygen Delivery Method Nasal Cannula Oxygen Flow Rate 2 Narrative Exam Narrative: General: alert, NAD Lungs: fine mid to lower early inspiratory crackles, bilaterally CV: RRR Abd: flat Ext: no edema Objective Labs 07/05/22 04:42 07/05/22 04:42 Labs: Laboratory Results - last 24 hr 07/05/22 07/05/22 04:42 04:42 WBC 7.2 RBC 3.96 L Hgb 10.7 L Hct 33.2 L MCV 83.8 MCH 27.0 MCHC 32.2 RDW 14.3 Plt Count 458 H Neut % (Auto) 60.6 Lymph % (Auto) 22.6 L [place] % (Auto) 8.1 Eos % (Auto) 7.7 H Baso % (Auto) 1.0 Neut # (Auto) 4400 Lymph # (Auto) 1600 [place] # (Auto) 600 Eos # (Auto) 600 H Baso # (Auto) 100 Sodium 136 L Potassium 4.2 Chloride 99 Carbon Dioxide 33 H BUN 22 H Creatinine 0.74 Estimated GFR > 60 BUN/Creatinine Ratio 29.7 H Glucose 157 H Calcium 8.2 L PFSH Medical History DKA (diabetic ketoacidoses) History of pyelonephritis Irregular menstrual cycle Migraine headache Nephrolithiasis Noncompliance w/medication treatment due to intermit use of medication Type 1 diabetes mellitus Surgical History History of ureter stent Hx of cataract surgery Hx of local excision of skin lesion Status post cholecystectomy Status post laser lithotripsy of ureteral calculus [place] teeth extracted Family History Father In good health Mother Cardiac disease Social History details: Engaged household members: family Smoking Status: Never smoker alcohol intake: never Discharge Plan Discharge Plan Patient Disposition: Home Provider Discharge Comment: You were admitted due to low oxygen levels. This is probably due to inflammatory changes in the lungs from when you were treated for pneumonia last month. There may also be an element of fluid overload due to congestive heart failure. Use the incentive spirometer at home. Have blood work checked in 1 week to monitor on new diuretic (torsemide). Recommend to have a repeat non-contrast chest CT in 2 months if you are still requiring oxygen or having shortness of breath. Nursing Discharge Comment: d/c after RT eval for home O2 Discharge orders & Medications Prescriptions: New torsemide 20 mg tablet 20 mg PO DAILY Qty: 30 0RF Continued glucose 4 gram tablet,chewable 4 gram PO Q15M PRN (Reason: hypoglycemia) Qty: 30 0RF Rx Instructions: until response Glucagon Emergency Kit (human) 1 mg recon soln 1 mg subcut DIRECTED ondansetron 4 mg tablet,disintegrating 4 mg PO Q8H PRN (Reason: nausea and vomiting) Qty: 10 0RF losartan 25 mg Tablet 25 mg PO DAILY 30 Days Qty: 30 0RF metoprolol tartrate 25 mg Tablet 25 mg PO BID 30 Days Qty: 60 0RF atropine 1 % drops 1 drp ophthalmic (eye) BEDTIME Patient Comments: INSTILL ONE DROP INTO BOTH EYES ONCE DAILY Rx Instructions: L eye only Simbrinza 1-0.2 % drops,suspension 1 drp ophthalmic (eye) BID Patient Comments: INSTILL ONE DROP INTO BOTH EYES TWO TIMES DAILY latanoprost 0.005 % drops 1 drp ophthalmic (eye) BEDTIME Patient Comments: INSTILL ONE DROP INTO BOTH EYES EVERY EVENING timolol maleate 0.5 % drops 1 drp ophthalmic (eye) BID Patient Comments: INSTILL ONE DROP INTO BOTH EYES TWO TIMES DAILY. insulin lispro [Humalog U-100 Insulin] 100 unit/mL Solution See Rx Instructions .ROUTE .COMPLEX Rx Instructions: pt unsure of dosage diphenhydramine HCl 50 mg Capsule 50 mg PO BEDTIME PRN (Reason: Sleep) Rx Instructions: for itching and sleep pantoprazole 40 mg tablet,delayed release (DR/EC) 40 mg PO BEDTIME Patient Comments: TAKE ONE TABLET BY MOUTH ONE TIME DAILY insulin degludec [Tresiba FlexTouch U-200] 200 unit/mL (3 mL) insulin pen See Rx Instructions .ROUTE .COMPLEX Rx Instructions: 20u in the am 6units at bedtime sennosides [senna] 8.6 mg Tablet 8.6 mg PO PRN PRN (Reason: Constipation) acetaminophen 325 mg Tablet 975 mg PO Q8H Qty: 30 0RF naloxone [Narcan] 4 mg/actuation spray,non-aerosol 1 spray intranasal Q2M Qty: 2 0RF Rx Instructions: spray 1 dose into ONE nostril; alternate nostrils w each dose until help arrives ondansetron 4 mg tablet,disintegrating 4 mg PO Q8H PRN (Reason: nausea and vomiting) Qty: 15 0RF Discontinued furosemide 20 mg tablet 20 mg PO DAILY 30 Days Qty: 30 0RF Follow up/Referrals: Maria Ines Limon DO [Primary Care Provider] - Visit Report/Discharge Packet Stand Alone Forms: Patient Portal/API, Stroke Signs & Symptoms Discharge Data Primary Care Provider: Maria Ines Limon Quality VTE Deep Vein Thrombosis/Pulmonary Embolism Present on Admission: No
--- NOTE | 2022-07-05 12:56 | CM.DPNOTE ---
DC Note Discharge home w/mom today. Pt was assessed by RT prior to discharge and not requiring home O2. Patient has had limited mobility since her pelvic fx last year, uses FWW vs walker Plan: Discharge home w/supportive mom and close outpatient follow up, outpatient PT recommended ANGELA
== END 2022-07-05 12:41 | disposition home or self-care (01) | DRG 291 ==
LOC: ED 12:23 → AC 16:34
PROVIDERS: Admitting Provider Student in an Organized Health Care Education/Training Program; Emergency Provider Emergency Medicine; PCP Student in an Organized Health Care Education/Training Program; Visit Provider Student in an Organized Health Care Education/Training Program
DX: I50.20 Unspecified systolic (congestive) heart failure (principal); J96.01 Acute respiratory failure with hypoxia; E44.1 Mild protein-calorie malnutrition; E10.65 Type 1 diabetes mellitus with hyperglycemia; K21.9 Gastro-esophageal reflux disease without esophagitis; J84.10 Pulmonary fibrosis, unspecified; Z87.01 Personal history of pneumonia (recurrent); Z68.20 Body mass index [BMI] 20.0-20.9, adult; Z20.822 Contact with and (suspected) exposure to COVID-19
CPT/HCPCS: 36415; 71045; 76770; 80048; 80053; 81001; 82009; 82550; 82962; 83690; 83735; 83880; 84100; 84484; 85025; 85610; 85730; 87635; 93005; 93010; 94618; 94760; 96374; 96375; 99285; C9803; J1170; J1815; J1940; J2405

== ENCOUNTER 2022-07-12 14:53 | Emergency (ER) | payer OTHER, MEDICAID, SELFPAY ==
[2022-07-02 16:19] VITALS: BMI 20.8
[2022-07-12] VITALS (15 sets, daily range): BP systolic 61–146; BP diastolic 35–93; PULSE 65–83; RESP 12–18; TEMP 36.8; O2SAT 93–100; BMI 17.4
--- NOTE | 2022-07-12 15:20 | DI.RAD.S_ITS ---
PROCEDURE: XR CHEST 1V INDICATIONS: chest pain TECHNIQUE: One view of the chest was acquired. COMPARISON: [facility], CR, XR CHEST 1V, 07/02/2022, 12:26. FINDINGS: Surgical changes and devices: None. Lungs and pleura: Lungs are clear. No pleural effusions or pneumothorax. Mediastinum: Mediastinal contours appear normal. Heart size is normal. Bones and chest wall: No suspicious bony lesions. Overlying soft tissues appear unremarkable. IMPRESSION: No acute cardiopulmonary abnormalities or focal airspace disease. Dictated by: Marino Cooper M.D. on 07/12/2022 at 16:51 Approved by: Marino Cooper M.D. on 07/12/2022 at 16:52
--- NOTE | 2022-07-12 15:25 | ED.DIZZY ---
HPI - Dizziness General Chief Complaint: Dizziness Stated Complaint: Low BP 78/60 Time Seen by Provider: 07/12/22 15:24 Source: patient Mode of arrival: Wheelchair History of Present Illness HPI Narrative: 32-year-old female with history of type 1 diabetes presenting with lightheadedness, dizziness, low blood pressure. Patient reports waking with symptoms earlier today, patient denies symptoms yesterday. Patient has had limited p.o. intake throughout the day today. Patient reports recently starting a eyedrop for pressure in her eyes, patient is not sure what medication this is but reports that she is concerned for medication effect causing her to have active symptoms now. No measured fevers. Patient has had diffuse body aches and MSK pain. No recurrent vomiting. Last blood sugar was in the 160s range. Related Data Home Medications Medication Instructions Recorded Confirmed glucagon (human recombinant) 1 mg 1 mg SUBCUT DIRECTED 02/16/19 07/02/22 solution for injection (Glucagon Emergency Kit) diphenhydramine HCl 50 mg capsule 50 mg PO BEDTIME PRN Sleep 09/29/20 07/02/22 insulin degludec 200 unit/mL (3 See Rx Instructions .Route .COMPLEX 11/13/21 07/02/22 mL) subcutaneous pen (Tresiba FlexTouch U-200 insulin) pantoprazole 40 mg tablet,delayed 40 mg PO BEDTIME 11/13/21 07/02/22 release sennosides 8.6 mg tablet (senna) 8.6 mg PO PRN PRN Constipation 11/13/21 07/02/22 atropine 1 % eye drops 1 drp ophthalmic (eye) BEDTIME 07/02/22 07/02/22 brinzolamide 1 %-brimonidine 0.2 % 1 drp ophthalmic (eye) BID 07/02/22 07/02/22 eye drops,suspension (Simbrinza) insulin lispro 100 unit/mL See Rx Instructions .Route .COMPLEX 07/02/22 07/04/22 subcutaneous solution (Humalog U-100 Insulin) latanoprost 0.005 % eye drops 1 drp ophthalmic (eye) BEDTIME 07/02/22 07/02/22 timolol maleate 0.5 % eye drops 1 drp ophthalmic (eye) BID 07/02/22 07/02/22 Previous Rx's Medication Instructions Recorded glucose 4 gram chewable tablet 4 gram PO Q15M PRN hypoglycemia 12/12/18 #30 tabs ondansetron 4 mg disintegrating 4 mg PO Q8H PRN nausea and 11/08/21 tablet vomiting #10 tabs acetaminophen 325 mg tablet 975 mg PO Q8H #30 tabs 11/18/21 naloxone 4 mg/actuation nasal 1 spray intranasal Q2M #2 ea 11/18/21 spray (Narcan) ondansetron 4 mg disintegrating 4 mg PO Q8H PRN nausea and 03/18/22 tablet vomiting #15 tabs losartan 25 mg tablet 25 mg PO DAILY 30 days #30 tabs 06/20/22 metoprolol tartrate 25 mg tablet 25 mg PO BID 30 days #60 tabs 06/20/22 torsemide 20 mg tablet 20 mg PO DAILY #30 tabs 07/05/22 Allergies Allergy/AdvReac Type Severity Reaction Status Date / Time arredondo [ARREDONDO] Allergy Intermediate Hives, Verified 07/02/22 12:02 pruritus iodine [IODINE] Allergy Intermediate rash, itchy Verified 07/02/22 12:02 morphine Allergy Intermediate Difficulty Verified 07/02/22 12:02 Breathing shellfish derived Allergy Intermediate rash Verified 07/02/22 12:02 [SHELLFISH DERIVED] adhesive [ADHESIVE] Allergy Unknown tape Verified 07/02/22 12:02 latex [LATEX] Allergy Unknown Hives Verified 07/02/22 12:02 Patient History Medical History DKA (diabetic ketoacidoses) History of pyelonephritis Irregular menstrual cycle Migraine headache Nephrolithiasis Noncompliance w/medication treatment due to intermit use of medication Type 1 diabetes mellitus Surgical History History of ureter stent Hx of cataract surgery Hx of local excision of skin lesion Status post cholecystectomy Status post laser lithotripsy of ureteral calculus [place] teeth extracted Family History Father In good health Mother Cardiac disease Social History details: Engaged household members: family Smoking Status: Never smoker alcohol intake: never Smoking Status: Never smoker alcohol intake frequency: holidays/special occasions only Substance Use Type: does not use Exam Initial Vital Signs Initial Vital Signs: Vital Signs Temperature 98.3 F 07/12/22 15:16 Pulse Rate 83 07/12/22 15:16 Respiratory Rate 18 07/12/22 15:16 Blood Pressure 61/35 L 07/12/22 15:16 Pulse Oximetry 100 07/12/22 15:16 Oxygen Delivery Method Room Air 07/12/22 15:16 Course Orders Ordered: Discontinued Medications Sodium Chloride (Normal Saline 0.9%) 1,410 mls @ 800 mls/hr IV BOLUS ONE Stop: 07/12/22 17:13 Last Infusion: 07/12/22 17:06 Dose: 0 mls/hr Documented By: Admin: 07/12/22 15:39 Dose: 800 mls/hr Documented By: SCOTT(2) Cefepime HCl 2 gm/ Sodium (Chloride) 100 mls @ 200 mls/hr IV NOW ONE Stop: 07/12/22 15:34 Last Infusion: 07/12/22 17:05 Dose: 0 mls/hr Documented By: Admin: 07/12/22 16:26 Dose: 200 mls/hr Documented By: SCOTT Vancomycin HCl (Vancomycin) 1,000 mg in 200 mls @ 200 mls/hr IV NOW ONE Stop: 07/12/22 17:27 Last Infusion: 07/12/22 18:55 Dose: 0 mls/hr Documented By: Admin: 07/12/22 17:17 Dose: 200 mls/hr Documented By: SCOTT Ondansetron HCl (Ondansetron 4 Mg Odt) 4 mg SL NOW PRN PRN Reason: Nausea And Vomiting Ondansetron HCl (Ondansetron 4 Mg/2 Ml Inj) 4 mg IV NOW PRN PRN Reason: Nausea And Vomiting Last Admin: 07/12/22 16:24 Dose: 4 mg Documented By: SCOTT Vancomycin HCl (Vancomycin Per Pharmacy) 1 request MISC NOW ONE Stop: 07/12/22 15:34 Last Admin: 07/12/22 17:19 Dose: Not Given Documented By: SCOTT Vital Signs Vital signs: Vital Signs - 8 hr 07/12/22 15:16 07/12/22 15:39 Temperature 98.3 F Pulse Rate 83 65 Respiratory Rate 18 18 Blood Pressure 61/35 L 105/64 Pulse Oximetry 100 97 Oxygen Delivery Method Room Air MDM - Dizziness Lab Data 07/12/22 15:20 07/12/22 15:20 Labs: Lab Results 07/12/22 07/12/22 07/12/22 Range/Units 15:20 15:20 15:20 WBC 13.8 H (4.5-11.0) X10^3/uL RBC 4.51 (4.0-5.2) X10^6/uL Hgb 11.7 L (12.0-16.0) g/dL Hct 37.8 (36-46) % MCV 83.7 (80-100) fL MCH 25.9 L (26-34) PG MCHC 30.9 (30-36) % RDW 15.3 H (11.6-14.8) % Plt Count 446 H (150-400) X10^3/uL Neut % (Auto) 77.0 H (50-75) % Lymph % (Auto) 14.8 L (25-40) % [place] % (Auto) 4.2 (3-14) % Eos % (Auto) 2.8 (2-4) % Baso % (Auto) 1.2 (0-2) % Neut # (Auto) 93734 H (1319-7997) /uL Lymph # (Auto) 2000 (1561-3381) /uL [place] # (Auto) 600 (0-900) /uL Eos # (Auto) 400 (0-450) /uL Baso # (Auto) 200 H (0-100) /uL PT (10.1-12.7) SECONDS INR (0.9-1.3) APTT (26-36) SECONDS VBG pH (7.33-7.43) VBG pCO2 (45-50) mmHg VBG pO2 (35-45) mmHg VBG HCO3 (24-28) mmol/L VBG Total CO2 (24-29) mmol/L VBG O2 Saturation (70-75) % VBG Base Excess (0-4) mmol/L FiO2 Sodium 135 L (137-145) mmol/L Potassium 5.0 (3.4-5.1) mmol/L Chloride 106 (98-107) mmol/L Carbon Dioxide 18 L (22-32) mmol/L BUN 33 H (7-17) mg/dL Creatinine 0.98 (0.52-1.04) mg/dL Estimated GFR > 60 (>60) mL/min BUN/Creatinine Ratio 33.7 H (6-22) Glucose 168 H (70-100) mg/dL Lactate 1.5 (0.7-2.1) mmol/L Calcium 8.5 (8.4-10.2) mg/dL Magnesium 2.2 (1.6-2.3) mg/dL Total Bilirubin 0.6 (0.2-1.3) mg/dL AST 36 (14-36) IU/L ALT 32 (<35) IU/L Alkaline Phosphatase 225 H (38-126) U/L Total Creatine Kinase 50 (30-135) U/L CK-MB (CK-2) TNP CK-MB (CK-2) Rel Index TNP Troponin I < 0.012 (0.01-0.034) ng/mL Total Protein 7.8 (6.3-8.2) g/dL Albumin 3.7 (3.5-5.0) g/dL Globulin 4.1 (1.7-4.1) g/dL Albumin/Globulin Ratio 0.9 L (1.0-2.8) Lipase 41 (23-300) U/L Procalcitonin (<0.5) ng/mL Urine RBC (0-5/HPF) Urine WBC (0-5/HPF) Ur Squamous Epith Cells (0-5/HPF) Urine Bacteria (None) Urine Mucus (Negative) Ur Culture Indicated? SARS-CoV-2 (PCR) (Negative) 07/12/22 07/12/22 07/12/22 Range/Units 15:28 15:38 16:00 WBC (4.5-11.0) X10^3/uL RBC (4.0-5.2) X10^6/uL Hgb (12.0-16.0) g/dL Hct (36-46) % MCV (80-100) fL MCH (26-34) PG MCHC (30-36) % RDW (11.6-14.8) % Plt Count (150-400) X10^3/uL Neut % (Auto) (50-75) % Lymph % (Auto) (25-40) % [place] % (Auto) (3-14) % Eos % (Auto) (2-4) % Baso % (Auto) (0-2) % Neut # (Auto) (5667-9522) /uL Lymph # (Auto) (5163-4639) /uL [place] # (Auto) (0-900) /uL Eos # (Auto) (0-450) /uL Baso # (Auto) (0-100) /uL PT 12.4 (10.1-12.7) SECONDS INR 1.1 (0.9-1.3) APTT 41 H (26-36) SECONDS VBG pH (7.33-7.43) VBG pCO2 (45-50) mmHg VBG pO2 (35-45) mmHg VBG HCO3 (24-28) mmol/L VBG Total CO2 (24-29) mmol/L VBG O2 Saturation (70-75) % VBG Base Excess (0-4) mmol/L FiO2 Sodium (137-145) mmol/L Potassium (3.4-5.1) mmol/L Chloride (98-107) mmol/L Carbon Dioxide (22-32) mmol/L BUN (7-17) mg/dL Creatinine (0.52-1.04) mg/dL Estimated GFR (>60) mL/min BUN/Creatinine Ratio (6-22) Glucose (70-100) mg/dL Lactate (0.7-2.1) mmol/L Calcium (8.4-10.2) mg/dL Magnesium (1.6-2.3) mg/dL Total Bilirubin (0.2-1.3) mg/dL AST (14-36) IU/L ALT (<35) IU/L Alkaline Phosphatase (38-126) U/L Total Creatine Kinase (30-135) U/L CK-MB (CK-2) CK-MB (CK-2) Rel Index Troponin I (0.01-0.034) ng/mL Total Protein (6.3-8.2) g/dL Albumin (3.5-5.0) g/dL Globulin (1.7-4.1) g/dL Albumin/Globulin Ratio (1.0-2.8) Lipase (23-300) U/L Procalcitonin 0.13 (<0.5) ng/mL Urine RBC (0-5/HPF) Urine WBC (0-5/HPF) Ur Squamous Epith Cells (0-5/HPF) Urine Bacteria (None) Urine Mucus (Negative) Ur Culture Indicated? SARS-CoV-2 (PCR) Negative (Negative) 07/12/22 07/12/22 Range/Units 16:00 18:22 WBC (4.5-11.0) X10^3/uL RBC (4.0-5.2) X10^6/uL Hgb (12.0-16.0) g/dL Hct (36-46) % MCV (80-100) fL MCH (26-34) PG MCHC (30-36) % RDW (11.6-14.8) % Plt Count (150-400) X10^3/uL Neut % (Auto) (50-75) % Lymph % (Auto) (25-40) % [place] % (Auto) (3-14) % Eos % (Auto) (2-4) % Baso % (Auto) (0-2) % Neut # (Auto) (6750-5418) /uL Lymph # (Auto) (8406-1887) /uL [place] # (Auto) (0-900) /uL Eos # (Auto) (0-450) /uL Baso # (Auto) (0-100) /uL PT (10.1-12.7) SECONDS INR (0.9-1.3) APTT (26-36) SECONDS VBG pH 7.28 L (7.33-7.43) VBG pCO2 51.0 H (45-50) mmHg VBG pO2 25 L (35-45) mmHg VBG HCO3 24 (24-28) mmol/L VBG Total CO2 25 (24-29) mmol/L VBG O2 Saturation 38 L (70-75) % VBG Base Excess -3.0 L (0-4) mmol/L FiO2 21 Sodium (137-145) mmol/L Potassium (3.4-5.1) mmol/L Chloride (98-107) mmol/L Carbon Dioxide (22-32) mmol/L BUN (7-17) mg/dL Creatinine (0.52-1.04) mg/dL Estimated GFR (>60) mL/min BUN/Creatinine Ratio (6-22) Glucose (70-100) mg/dL Lactate (0.7-2.1) mmol/L Calcium (8.4-10.2) mg/dL Magnesium (1.6-2.3) mg/dL Total Bilirubin (0.2-1.3) mg/dL AST (14-36) IU/L ALT (<35) IU/L Alkaline Phosphatase (38-126) U/L Total Creatine Kinase (30-135) U/L CK-MB (CK-2) CK-MB (CK-2) Rel Index Troponin I (0.01-0.034) ng/mL Total Protein (6.3-8.2) g/dL Albumin (3.5-5.0) g/dL Globulin (1.7-4.1) g/dL Albumin/Globulin Ratio (1.0-2.8) Lipase (23-300) U/L Procalcitonin (<0.5) ng/mL Urine RBC 1-5/hpf (0-5/HPF) Urine WBC 1-5/hpf (0-5/HPF) Ur Squamous Epith Cells 1-5 /hpf (0-5/HPF) Urine Bacteria None seen (None) Urine Mucus 1+ H (Negative) Ur Culture Indicated? Cult not indicated SARS-CoV-2 (PCR) (Negative) Point of Care Testing Test Results Negative Urine Dip Bedside Urine Glucose 250 mg/dl Bedside Urine Bilirubin - Negative Bedside Urine Ketone - Negative Urine Specific [place] 1.015 Bedside Urine Occult Blood +/- Bedside Urine pH 6.0 Bedside Urine Protein + 30 Bedside Urine Urobilinogen - Negative Bedside Urine Nitrite - Negative Bedside Urine Leukocytes - Negative Esterase MDM Narrative Medical decision making narrative: 32-year-old female presenting with lightheadedness and hypotension in the setting of recently restarting outpatient oral medications. On presentation, vital signs notable for hypotension with systolics in the 70s to 80s. Physical exam notable for chronically ill-appearing 32-year-old female who is alert and interactive, reassuring cardiopulmonary exam, benign abdomen. Initial concern for viral syndrome, bacterial infection, sepsis, serious bacterial infection, electrolyte derangement, metabolic abnormality, DKA, medication effect, medication noncompliance. Given patient's hypotension on presentation to the emergency department, broad screening labs were obtained, patient was administered IV fluids and antibiotics out of concern for possible sepsis, multiple repeat assessments were performed. Patient's blood pressures improved prior to initial interventions with IV fluids and antibiotics. Patient's blood pressures were trended throughout emergency department stay. Screening labs without clear evidence of sepsis/localizing bacterial infection. On multiple repeat evaluations, patient with normalization of blood pressures, patient is back to baseline per mother at bedside. Given restarting of outpatient medications which have produced orthostatic hypotension in the past, suspect medication effect. Discussed possibility of early occult infection without clear evidence of supporting objective data on blood work. Given patient back to baseline, blood pressure is normalized for several hours in the emergency department, and no clear evidence of acute emergent pathology, discussed plan for discharge and close outpatient follow up. Patient and family member at bedside were comfortable this plan and return precautions were discussed. Discharge Plan Departure Patient Disposition: Home Clinical Impression: Weakness, Hypotension Activity Restrictions/Additional Instructions: *You have been diagnosed with weakness and hypotension. *What to do: As discussed, please half your metoprolol dosing until following up with cardiology next week. Please return to the emergency department if you develop any new or recurrent symptoms. *Please follow up with your primary care provider in 2-3 days, call for an appointment. Let them know you were seen in the Emergency Department and that we ask that you be seen in follow up. We will electronically transmit a record of today's note if your PCP is in our system *Return to Emergency Department if you should have any new, worsening or concerning symptoms, such as [fever greater than 101 F, shaking chills, worsening pain, persistent vomiting or other bothersome symptoms] Prescriptions: No Action glucose 4 gram tablet,chewable 4 gram PO Q15M PRN (Reason: hypoglycemia) Qty: 30 0RF Rx Instructions: until response Glucagon Emergency Kit (human) 1 mg recon soln 1 mg subcut DIRECTED ondansetron 4 mg tablet,disintegrating 4 mg PO Q8H PRN (Reason: nausea and vomiting) Qty: 10 0RF losartan 25 mg Tablet 25 mg PO DAILY 30 Days Qty: 30 0RF metoprolol tartrate 25 mg Tablet 25 mg PO BID 30 Days Qty: 60 0RF atropine 1 % drops 1 drp ophthalmic (eye) BEDTIME Patient Comments: INSTILL ONE DROP INTO BOTH EYES ONCE DAILY Rx Instructions: L eye only Simbrinza 1-0.2 % drops,suspension 1 drp ophthalmic (eye) BID Patient Comments: INSTILL ONE DROP INTO BOTH EYES TWO TIMES DAILY latanoprost 0.005 % drops 1 drp ophthalmic (eye) BEDTIME Patient Comments: INSTILL ONE DROP INTO BOTH EYES EVERY EVENING timolol maleate 0.5 % drops 1 drp ophthalmic (eye) BID Patient Comments: INSTILL ONE DROP INTO BOTH EYES TWO TIMES DAILY. insulin lispro [Humalog U-100 Insulin] 100 unit/mL Solution See Rx Instructions .ROUTE .COMPLEX Rx Instructions: pt unsure of dosage torsemide 20 mg tablet 20 mg PO DAILY Qty: 30 0RF diphenhydramine HCl 50 mg Capsule 50 mg PO BEDTIME PRN (Reason: Sleep) Rx Instructions: for itching and sleep pantoprazole 40 mg tablet,delayed release (DR/EC) 40 mg PO BEDTIME Patient Comments: TAKE ONE TABLET BY MOUTH ONE TIME DAILY insulin degludec [Tresiba FlexTouch U-200] 200 unit/mL (3 mL) insulin pen See Rx Instructions .ROUTE .COMPLEX Rx Instructions: 20u in the am 6units at bedtime sennosides [senna] 8.6 mg Tablet 8.6 mg PO PRN PRN (Reason: Constipation) acetaminophen 325 mg Tablet 975 mg PO Q8H Qty: 30 0RF naloxone [Narcan] 4 mg/actuation spray,non-aerosol 1 spray intranasal Q2M Qty: 2 0RF Rx Instructions: spray 1 dose into ONE nostril; alternate nostrils w each dose until help arrives ondansetron 4 mg tablet,disintegrating 4 mg PO Q8H PRN (Reason: nausea and vomiting) Qty: 15 0RF Referrals: Maria Ines Limon DO [Primary Care Provider] - Stand Alone Forms: Patient Portal/API
[2022-07-12] MEDS: SODIUM CHLORIDE 0.9% 800 ML IV (15:39)
[2022-07-12 15:48] LABS: Add Manual Diff / Slide Review NO; Basophils Absolute Auto 200 /uL (0-100); Basophils Percent Auto 1.2 % (0-2); Eosinophils Absolute Auto 400 /uL (0-450); Eosinophils Percent Auto 2.8 % (2-4); Hematocrit 37.8 % (36-46); Hemoglobin 11.7 g/dL (12.0-16.0); Lymphocytes Absolute Auto 2000 /uL (1100-4500); Lymphocytes Percent Auto 14.8 % (25-40); Mean Corpuscular HGB Conc 30.9 % (30-36); Mean Corpuscular Hemoglobin 25.9 PG (26-34); Mean Corpuscular Volume 83.7 fL (80-100); Monocytes Absolute Auto 600 /uL (0-900); Monocytes Percent Auto 4.2 % (3-14); Neutrophils Absolute Auto 10600 /uL (1500-7000); Platelet Count 446 X10^3/uL (150-400); Red Blood Cell Count 4.51 X10^6/uL (4.0-5.2); Red Cell Distribution Width 15.3 % (11.6-14.8); White Blood Cell Count 13.8 X10^3/uL (4.5-11.0)
[2022-07-12 15:56] LABS: COVID19 -Nasal RAPID Negative (Negative)
[2022-07-12 16:06] LABS: Lactate (Lactic Acid) 1.5 mmol/L (0.7-2.1)
[2022-07-12 16:07] LABS: Alanine Aminotransferase 32 IU/L (<35); Albumin 3.7 g/dL (3.5-5.0); Albumin Globulin Ratio 0.9 (1.0-2.8); Alkaline Phosphatase 225 U/L (38-126); Aspartate Aminotransferase 36 IU/L (14-36); BUN Creatinine Ratio 33.7 (6-22); Bilirubin Total 0.6 mg/dL (0.2-1.3); Blood Urea Nitrogen 33 mg/dL (7-17); Calcium 8.5 mg/dL (8.4-10.2); Carbon Dioxide 18 mmol/L (22-32); Chloride 106 mmol/L (98-107); Creatine Kinase 50 U/L (30-135); Estimated Glomerular Filt Rate > 60 mL/min (>60); Globulin 4.1 g/dL (1.7-4.1); Glucose 168 mg/dL (70-100); Lipase 41 U/L (23-300); Magnesium 2.2 mg/dL (1.6-2.3); Sodium 135 mmol/L (137-145); Total Protein 7.8 g/dL (6.3-8.2)
[2022-07-12 16:09] LABS: HEMOLYSIS 84 (0-50)
[2022-07-12 16:15] LABS: PO2 VBG 25 mmHg (35-45); pH VBG 7.28 (7.33-7.43)
[2022-07-12 16:16] LABS: Fractionated Inspired Oxygen 21; HCO3 VBG 24 mmol/L (24-28); Oxygen Saturation VBG 38 % (70-75); Total CO2 VBG 25 mmol/L (24-29)
[2022-07-12 16:17] LABS: Troponin I < 0.012 ng/mL (0.01-0.034)
[2022-07-12] MEDS: ONDANSETRON 4 MG/2 ML INJ IV (16:24)
[2022-07-12] MEDS: CEFEPIME 2 GM in SODIUM CHLORIDE 0.9% 100 ML IV (16:26)
[2022-07-12 16:41] LABS: INR 1.1 (0.9-1.3); Prothrombin Time 12.4 SECONDS (10.1-12.7)
[2022-07-12 16:44] LABS: Procalcitonin 0.13 ng/mL (<0.5)
[2022-07-12 16:44] LABS: PTT Partial Thromboplastin Tim 41 SECONDS (26-36)
[2022-07-12] MEDS: VANCOMYCIN 1,000 MG/200 ML PIGGYBACK 200 MG IV (17:17)
[2022-07-12 19:02] LABS: Bacteria Urine None Seen; Culture Indicated Urine Cult Not Indicated; Mucus Urine 1+ (Negative); RBC Urine 1-5/HPF (0-5/HPF); Squamous Epithelial Cell Urine 1-5 /HPF (0-5/HPF); WBC Urine 1-5/HPF (0-5/HPF)
== END 2022-07-12 19:08 | disposition home or self-care (01) ==
PROVIDERS: Emergency Provider Emergency Medicine; PCP Student in an Organized Health Care Education/Training Program
DX: I95.9 Hypotension, unspecified (principal); R53.1 Weakness; R07.9 Chest pain, unspecified; Z20.822 Contact with and (suspected) exposure to COVID-19
CPT/HCPCS: 36415; 71045; 80053; 81003; 81015; 81025; 82550; 82805; 83605; 83690; 83735; 84145; 84484; 85025; 85610; 85730; 87040; 87635; 93005; 93010; 96365; 96366; 96367; 96375; 99284; C9803; J0692; J2405

== ENCOUNTER 2022-09-11 16:31 | Emergency (ER) | payer OTHER, MEDICAID, SELFPAY ==
[2022-07-02 16:19] VITALS: BMI 20.8
[2022-09-11] VITALS (30 sets, daily range): BP systolic 118–167; BP diastolic 74–108; PULSE 94–102; RESP 9–20; TEMP 36.6; O2SAT 95–99
--- NOTE | 2022-09-11 16:40 | DI.RAD.S_ITS ---
PROCEDURE: XR CHEST 1V INDICATIONS: chest pain TECHNIQUE: One view of the chest was acquired. COMPARISON: [facility], CR, XR CHEST 1V, 07/02/2022, 12:26. [facility], CR, XR CHEST 1V, 07/12/2022, 15:39. FINDINGS: Surgical changes and devices: None. Lungs and pleura: Lungs are clear. No pleural effusions or pneumothorax. Mediastinum: Mediastinal contours appear normal. Heart size is normal. Bones and chest wall: No suspicious bony lesions. Overlying soft tissues appear unremarkable. IMPRESSION: No acute cardiopulmonary disease. Dictated by: Keven Dotson M.D. on 09/11/2022 at 17:18 Approved by: Keven Dotson M.D. on 09/11/2022 at 17:19
[2022-09-11 16:53] LABS: Add Manual Diff / Slide Review NO; Basophils Absolute Auto 100 /uL (0-100); Basophils Percent Auto 0.5 % (0-2); Eosinophils Absolute Auto 100 /uL (0-450); Hematocrit 36.9 % (36-46); Hemoglobin 11.9 g/dL (12.0-16.0); Lymphocytes Absolute Auto 1200 /uL (1100-4500); Lymphocytes Percent Auto 8.8 % (25-40); Mean Corpuscular HGB Conc 32.2 % (30-36); Mean Corpuscular Hemoglobin 25.9 PG (26-34); Mean Corpuscular Volume 80.2 fL (80-100); Monocytes Absolute Auto 800 /uL (0-900); Monocytes Percent Auto 5.9 % (3-14); Neutrophils Absolute Auto 11700 /uL (1500-7000); Neutrophils Percent Auto 83.8 % (50-75); Platelet Count 402 X10^3/uL (150-400)
[2022-09-11 16:57] LABS: Alanine Aminotransferase 25 IU/L (<35); Albumin 3.7 g/dL (3.5-5.0); Alkaline Phosphatase 178 U/L (38-126); Aspartate Aminotransferase 20 IU/L (14-36); BUN Creatinine Ratio 26.5 (6-22); Bilirubin Total 0.4 mg/dL (0.2-1.3); Blood Urea Nitrogen 18 mg/dL (7-17); Calcium 8.9 mg/dL (8.4-10.2); Carbon Dioxide 29 mmol/L (22-32); Chloride 101 mmol/L (98-107); Creatine Kinase 69 U/L (30-135); Estimated Glomerular Filt Rate > 60 mL/min (>60); Globulin 3.8 g/dL (1.7-4.1); Glucose 105 mg/dL (70-100); HEMOLYSIS < 15 (0-50); Lipase 28 U/L (23-300); Magnesium 2.2 mg/dL (1.6-2.3); Potassium 5.1 mmol/L (3.4-5.1); Sodium 137 mmol/L (137-145); Total Protein 7.5 g/dL (6.3-8.2)
[2022-09-11 17:06] LABS: NT-proBNP (BNP-Adult 18+) 1020 pg/mL (<125)
[2022-09-11 17:08] LABS: Troponin I < 0.012 ng/mL (0.01-0.034)
--- NOTE | 2022-09-11 17:20 | PC.NURSE ---
pt reports recent surgery for high pressures in her right eye. 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
--- NOTE | 2022-09-11 18:06 | PC.NURSE ---
pt states that she is too weak to ambulate. mom states that she only can stand enough with a walker and pivot to the bedside commode.
[2022-09-11 18:28] LABS: COVID19 -Nasal RAPID Negative (Negative)
[2022-09-11 18:30] LABS: PTT Partial Thromboplastin Tim 40 SECONDS (26-36)
[2022-09-11] MEDS: SODIUM CHLORIDE 0.9% 1,000 ML 1000 ML IV (18:44)
--- NOTE | 2022-09-11 19:08 | ED.GENADULT ---
HPI - General Adult General Chief complaint: Syncope Stated complaint: Syncopal Time Seen by Provider: 09/11/22 17:40 Source: patient and EMS Mode of arrival: EMS History of Present Illness HPI narrative: Patient is a 32-year-old female who has a insulin-dependent diabetic who was at home in her normal state of health. She got up to use the bedside commode. Her mother was with her during this event. Her mother is here in the emergency department providing some of the HPI. Apparently while the patient was on the toilet she had what appears to be a syncopal episode. Lasted seconds. When she woke up she was oriented. Prior to the event was not having chest pain or shortness of breath. EMS was called. EMS stated that the patient was orthostatic. Patient has been having some lower abdominal pain and lower back pain but this is not new. No fevers. Related Data Home Medications Medication Instructions Recorded Confirmed glucagon (human recombinant) 1 mg 1 mg SUBCUT DIRECTED 02/16/19 07/02/22 solution for injection (Glucagon Emergency Kit) diphenhydramine HCl 50 mg capsule 50 mg PO BEDTIME PRN Sleep 09/29/20 07/02/22 insulin degludec 200 unit/mL (3 See Rx Instructions .Route .COMPLEX 11/13/21 07/02/22 mL) subcutaneous pen (Tresiba FlexTouch U-200 insulin) pantoprazole 40 mg tablet,delayed 40 mg PO BEDTIME 11/13/21 07/02/22 release sennosides 8.6 mg tablet (senna) 8.6 mg PO PRN PRN Constipation 11/13/21 07/02/22 atropine 1 % eye drops 1 drp ophthalmic (eye) BEDTIME 07/02/22 07/02/22 brinzolamide 1 %-brimonidine 0.2 % 1 drp ophthalmic (eye) BID 07/02/22 07/02/22 eye drops,suspension (Simbrinza) insulin lispro 100 unit/mL See Rx Instructions .Route .COMPLEX 07/02/22 07/04/22 subcutaneous solution (Humalog U-100 Insulin) latanoprost 0.005 % eye drops 1 drp ophthalmic (eye) BEDTIME 07/02/22 07/02/22 timolol maleate 0.5 % eye drops 1 drp ophthalmic (eye) BID 07/02/22 07/02/22 Previous Rx's Medication Instructions Recorded glucose 4 gram chewable tablet 4 gram PO Q15M PRN hypoglycemia 12/12/18 #30 tabs ondansetron 4 mg disintegrating 4 mg PO Q8H PRN nausea and 11/08/21 tablet vomiting #10 tabs acetaminophen 325 mg tablet 975 mg PO Q8H #30 tabs 11/18/21 naloxone 4 mg/actuation nasal 1 spray intranasal Q2M #2 ea 11/18/21 spray (Narcan) ondansetron 4 mg disintegrating 4 mg PO Q8H PRN nausea and 03/18/22 tablet vomiting #15 tabs torsemide 20 mg tablet 20 mg PO DAILY #30 tabs 07/05/22 Allergies Allergy/AdvReac Type Severity Reaction Status Date / Time abdalla [ABDALLA] Allergy Intermediate Hives, Verified 09/11/22 16:44 pruritus iodine [IODINE] Allergy Intermediate rash, itchy Verified 09/11/22 16:44 morphine Allergy Intermediate Difficulty Verified 09/11/22 16:44 Breathing shellfish derived Allergy Intermediate rash Verified 09/11/22 16:44 [SHELLFISH DERIVED] adhesive [ADHESIVE] Allergy Unknown tape Verified 09/11/22 16:44 latex [LATEX] Allergy Unknown Hives Verified 09/11/22 16:44 Review of Systems Review of Systems ROS Unobtainable: All systems reviewed & are unremarkable except as noted in HPI and below Patient History Medical History DKA (diabetic ketoacidoses) History of pyelonephritis Irregular menstrual cycle Migraine headache Nephrolithiasis Noncompliance w/medication treatment due to intermit use of medication Type 1 diabetes mellitus Surgical History History of ureter stent Hx of cataract surgery Hx of local excision of skin lesion Status post cholecystectomy Status post laser lithotripsy of ureteral calculus [place] teeth extracted Family History Father In good health Mother Cardiac disease Social History details: Engaged household members: family Smoking Status: Never smoker alcohol intake: never Smoking Status: Never smoker alcohol intake frequency: holidays/special occasions only Substance Use Type: does not use Exam Initial Vital Signs Initial Vital Signs: Vital Signs Temperature 97.9 F 09/11/22 16:30 Pulse Rate 102 H 09/11/22 16:30 Respiratory Rate 20 09/11/22 16:30 Blood Pressure 158/99 H 09/11/22 16:30 Pulse Oximetry 98 09/11/22 16:30 Oxygen Delivery Method Room Air 09/11/22 16:30 Const General: cooperative, comfortable and No ill appearing HENTX Head: normal to inspection and normocephalic Resp Effort & Inspection: normal respiratory effort Auscultation: clear to auscultation bilaterally Cardio Rate: regular rate Rhythm: regular rhythm GI Inspection: normal to inspection Neuro General: patient alert, patient awake and patient oriented x3 Scores GCS Alex coma scale eye opening: Spontaneous Alex coma scale verbal response: Orientated Alex coma scale motor response: Obey commands [place] coma scale total score: 15 Course Orders Ordered: ED Orders 09/11/22 16:35 Complete Blood Count AUTO DIFF Stat Comprehensive Metabolic Panel Stat Lipase Stat Magnesium Stat NT-proBNP (BNP-Adult 18+) Stat PTT Partial Thromboplastin Lee Stat Prothrombin Time INR Stat Troponin & CK Cardiac Panel Stat 09/11/22 16:40 XR chest 1V Stat EKG-12 Lead Stat 09/11/22 18:01 COVID19 -Nasal RAPID Stat 09/11/22 20:17 Urine Culture Stat Urine Microscopic Stat Discontinued Medications Hydrocodone Bitart/Acetaminophen (Hydrocodone/Acet 5/325 Tablet) 1 tab PO NOW ONE Stop: 09/11/22 19:08 Last Admin: 09/11/22 19:22 Dose: 1 tab Documented By: AVA Aspirin (Aspirin 81 Mg Chew Tab) 324 mg PO NOW ONE Stop: 09/11/22 16:41 Last Admin: 09/11/22 17:00 Dose: Not Given Documented By: AVA Sodium Chloride (Normal Saline 0.9%) 1,000 mls @ 1,000 mls/hr IV BOLUS ONE Stop: 09/11/22 19:14 Last Infusion: 09/11/22 19:28 Dose: 0 mls/hr Documented By: Admin: 09/11/22 18:44 Dose: 1,000 mls/hr Documented By: AVA Vital Signs Vital signs: Vital Signs - 8 hr 09/11/22 18:03 09/11/22 17:45 09/11/22 17:45 Pulse Rate 97 H Pulse Rate [Orthostatic Lying] 97 H Pulse Rate [Orthostatic Sitting] 97 H Respiratory Rate 15 Blood Pressure 149/93 H Blood Pressure [Orthostatic Lying] 151/97 H Blood Pressure [Orthostatic Sitting] 126/83 Pulse Oximetry 97 Oxygen Delivery Method 09/11/22 17:57 09/11/22 17:57 09/11/22 17:59 Pulse Rate 96 H Pulse Rate [Orthostatic Lying] Pulse Rate [Orthostatic Sitting] Respiratory Rate 12 Blood Pressure 151/97 H 126/83 Blood Pressure [Orthostatic Lying] Blood Pressure [Orthostatic Sitting] Pulse Oximetry 97 Oxygen Delivery Method 09/11/22 17:59 09/11/22 18:00 09/11/22 18:03 Pulse Rate 97 H 99 H 98 H Pulse Rate [Orthostatic Lying] Pulse Rate [Orthostatic Sitting] Respiratory Rate 14 18 12 Blood Pressure Blood Pressure [Orthostatic Lying] Blood Pressure [Orthostatic Sitting] Pulse Oximetry 98 99 97 Oxygen Delivery Method 09/11/22 18:03 09/11/22 18:15 09/11/22 18:15 Pulse Rate 96 H Pulse Rate [Orthostatic Lying] Pulse Rate [Orthostatic Sitting] Respiratory Rate 11 L Blood Pressure 157/94 H 140/90 Blood Pressure [Orthostatic Lying] Blood Pressure [Orthostatic Sitting] Pulse Oximetry 97 Oxygen Delivery Method 09/11/22 18:30 09/11/22 18:30 09/11/22 18:45 Pulse Rate 98 H 96 H Pulse Rate [Orthostatic Lying] Pulse Rate [Orthostatic Sitting] Respiratory Rate 9 L 9 L Blood Pressure 137/91 H Blood Pressure [Orthostatic Lying] Blood Pressure [Orthostatic Sitting] Pulse Oximetry 98 97 Oxygen Delivery Method Room Air 09/11/22 18:45 09/11/22 19:00 09/11/22 19:00 Pulse Rate 97 H Pulse Rate [Orthostatic Lying] Pulse Rate [Orthostatic Sitting] Respiratory Rate 14 Blood Pressure 154/90 H 160/95 H Blood Pressure [Orthostatic Lying] Blood Pressure [Orthostatic Sitting] Pulse Oximetry 97 Oxygen Delivery Method 09/11/22 19:15 09/11/22 19:15 09/11/22 19:30 Pulse Rate 96 H Pulse Rate [Orthostatic Lying] Pulse Rate [Orthostatic Sitting] Respiratory Rate 12 Blood Pressure 158/99 H 150/98 H Blood Pressure [Orthostatic Lying] Blood Pressure [Orthostatic Sitting] Pulse Oximetry 96 Oxygen Delivery Method 09/11/22 19:30 09/11/22 19:45 09/11/22 19:45 Pulse Rate 99 H 94 H Pulse Rate [Orthostatic Lying] Pulse Rate [Orthostatic Sitting] Respiratory Rate 15 9 L Blood Pressure 130/85 Blood Pressure [Orthostatic Lying] Blood Pressure [Orthostatic Sitting] Pulse Oximetry 98 97 Oxygen Delivery Method 09/11/22 20:10 09/11/22 20:11 09/11/22 20:11 Pulse Rate 97 H Pulse Rate [Orthostatic Lying] Pulse Rate [Orthostatic Sitting] Respiratory Rate Blood Pressure 137/91 H Blood Pressure [Orthostatic Lying] Blood Pressure [Orthostatic Sitting] Pulse Oximetry 98 98 Oxygen Delivery Method 09/11/22 20:15 09/11/22 20:15 09/11/22 20:30 Pulse Rate 96 H Pulse Rate [Orthostatic Lying] Pulse Rate [Orthostatic Sitting] Respiratory Rate 14 Blood Pressure 136/88 126/82 Blood Pressure [Orthostatic Lying] Blood Pressure [Orthostatic Sitting] Pulse Oximetry 97 Oxygen Delivery Method 09/11/22 20:30 09/11/22 20:45 09/11/22 20:45 Pulse Rate 96 H 94 H Pulse Rate [Orthostatic Lying] Pulse Rate [Orthostatic Sitting] Respiratory Rate 14 16 Blood Pressure 123/78 Blood Pressure [Orthostatic Lying] Blood Pressure [Orthostatic Sitting] Pulse Oximetry 96 95 Oxygen Delivery Method 09/11/22 21:00 09/11/22 21:00 09/11/22 21:15 Pulse Rate 96 H 96 H Pulse Rate [Orthostatic Lying] Pulse Rate [Orthostatic Sitting] Respiratory Rate 16 18 Blood Pressure 119/74 Blood Pressure [Orthostatic Lying] Blood Pressure [Orthostatic Sitting] Pulse Oximetry 96 96 Oxygen Delivery Method 09/11/22 21:15 09/11/22 21:30 09/11/22 21:30 Pulse Rate 99 H Pulse Rate [Orthostatic Lying] Pulse Rate [Orthostatic Sitting] Respiratory Rate 13 Blood Pressure 118/76 134/83 Blood Pressure [Orthostatic Lying] Blood Pressure [Orthostatic Sitting] Pulse Oximetry 97 Oxygen Delivery Method 09/11/22 21:45 09/11/22 21:45 09/11/22 22:00 Pulse Rate 97 H Pulse Rate [Orthostatic Lying] Pulse Rate [Orthostatic Sitting] Respiratory Rate 14 Blood Pressure 120/78 123/77 Blood Pressure [Orthostatic Lying] Blood Pressure [Orthostatic Sitting] Pulse Oximetry 96 Oxygen Delivery Method 09/11/22 22:00 09/11/22 22:15 09/11/22 22:15 Pulse Rate 94 H 96 H Pulse Rate [Orthostatic Lying] Pulse Rate [Orthostatic Sitting] Respiratory Rate 16 18 Blood Pressure 127/80 Blood Pressure [Orthostatic Lying] Blood Pressure [Orthostatic Sitting] Pulse Oximetry 95 96 Oxygen Delivery Method Room Air Medical Decision Making Lab Data Lab results reviewed: Yes I reviewed the patient's lab results. 09/11/22 16:35 09/11/22 16:35 Labs: Lab Results 09/11/22 09/11/22 09/11/22 Range/Units 16:35 16:35 16:35 WBC 14.0 H (4.5-11.0) X10^3/uL RBC 4.60 (4.0-5.2) X10^6/uL Hgb 11.9 L (12.0-16.0) g/dL Hct 36.9 (36-46) % MCV 80.2 (80-100) fL MCH 25.9 L (26-34) PG MCHC 32.2 (30-36) % RDW 16.0 H (11.6-14.8) % Plt Count 402 H (150-400) X10^3/uL Neut % (Auto) 83.8 H (50-75) % Lymph % (Auto) 8.8 L (25-40) % Rogers % (Auto) 5.9 (3-14) % Eos % (Auto) 1.0 L (2-4) % Baso % (Auto) 0.5 (0-2) % Neut # (Auto) 66444 H (3607-7554) /uL Lymph # (Auto) 1200 (6683-8724) /uL Rogers # (Auto) 800 (0-900) /uL Eos # (Auto) 100 (0-450) /uL Baso # (Auto) 100 (0-100) /uL PT 11.0 (10.1-12.7) SECONDS INR 1.0 (0.9-1.3) APTT 40 H (26-36) SECONDS Sodium 137 (137-145) mmol/L Potassium 5.1 (3.4-5.1) mmol/L Chloride 101 (98-107) mmol/L Carbon Dioxide 29 (22-32) mmol/L BUN 18 H (7-17) mg/dL Creatinine 0.68 (0.52-1.04) mg/dL Estimated GFR > 60 (>60) mL/min BUN/Creatinine Ratio 26.5 H (6-22) Glucose 105 H (70-100) mg/dL Calcium 8.9 (8.4-10.2) mg/dL Magnesium 2.2 (1.6-2.3) mg/dL Total Bilirubin 0.4 (0.2-1.3) mg/dL AST 20 (14-36) IU/L ALT 25 (<35) IU/L Alkaline Phosphatase 178 H (38-126) U/L Total Creatine Kinase 69 (30-135) U/L CK-MB (CK-2) TNP CK-MB (CK-2) Rel Index TNP Troponin I < 0.012 (0.01-0.034) ng/mL NT-Pro-B Natriuret Pep (<125) pg/mL Total Protein 7.5 (6.3-8.2) g/dL Albumin 3.7 (3.5-5.0) g/dL Globulin 3.8 (1.7-4.1) g/dL Albumin/Globulin Ratio 1.0 (1.0-2.8) Lipase 28 (23-300) U/L Urine RBC (0-5/HPF) Urine WBC (0-5/HPF) Ur Squamous Epith Cells (0-5/HPF) Ur Transition Epith Cell (0-5/HPF) Urine Bacteria (None) Ur Culture Indicated? SARS-CoV-2 (PCR) (Negative) 09/11/22 09/11/22 09/11/22 Range/Units 16:35 18:01 20:17 WBC (4.5-11.0) X10^3/uL RBC (4.0-5.2) X10^6/uL Hgb (12.0-16.0) g/dL Hct (36-46) % MCV (80-100) fL MCH (26-34) PG MCHC (30-36) % RDW (11.6-14.8) % Plt Count (150-400) X10^3/uL Neut % (Auto) (50-75) % Lymph % (Auto) (25-40) % [place] % (Auto) (3-14) % Eos % (Auto) (2-4) % Baso % (Auto) (0-2) % Neut # (Auto) (0704-3892) /uL Lymph # (Auto) (8037-7260) /uL Rogers # (Auto) (0-900) /uL Eos # (Auto) (0-450) /uL Baso # (Auto) (0-100) /uL PT (10.1-12.7) SECONDS INR (0.9-1.3) APTT (26-36) SECONDS Sodium (137-145) mmol/L Potassium (3.4-5.1) mmol/L Chloride (98-107) mmol/L Carbon Dioxide (22-32) mmol/L BUN (7-17) mg/dL Creatinine (0.52-1.04) mg/dL Estimated GFR (>60) mL/min BUN/Creatinine Ratio (6-22) Glucose (70-100) mg/dL Calcium (8.4-10.2) mg/dL Magnesium (1.6-2.3) mg/dL Total Bilirubin (0.2-1.3) mg/dL AST (14-36) IU/L ALT (<35) IU/L Alkaline Phosphatase (38-126) U/L Total Creatine Kinase (30-135) U/L CK-MB (CK-2) CK-MB (CK-2) Rel Index Troponin I (0.01-0.034) ng/mL NT-Pro-B Natriuret Pep 1020 H (<125) pg/mL Total Protein (6.3-8.2) g/dL Albumin (3.5-5.0) g/dL Globulin (1.7-4.1) g/dL Albumin/Globulin Ratio (1.0-2.8) Lipase (23-300) U/L Urine RBC 10-30/hpf H (0-5/HPF) Urine WBC 10-30/hpf H (0-5/HPF) Ur Squamous Epith Cells 10-30 /hpf H D (0-5/HPF) Ur Transition Epith Cell 1-5/hpf (0-5/HPF) Urine Bacteria Moderate (10-30) H (None) Ur Culture Indicated? Specimen cultured SARS-CoV-2 (PCR) Negative (Negative) Point of Care Testing Test Results Negative Glucose POC 188 Urine Dip Bedside Urine Glucose 100 mg/dl Bedside Urine Bilirubin - Negative Bedside Urine Ketone - Negative Urine Specific [place] 1.020 Bedside Urine Occult Blood +++ Bedside Urine pH 6.0 Bedside Urine Protein +++ 300 Bedside Urine Urobilinogen - Negative Bedside Urine Nitrite - Negative Bedside Urine Leukocytes +/- 15 Esterase Point of care testing: Point of Care Testing Test Results Negative Glucose POC 188 Urine Dip Bedside Urine Glucose 100 mg/dl Bedside Urine Bilirubin - Negative Bedside Urine Ketone - Negative Urine Specific [place] 1.020 Bedside Urine Occult Blood +++ Bedside Urine pH 6.0 Bedside Urine Protein +++ 300 Bedside Urine Urobilinogen - Negative Bedside Urine Nitrite - Negative Bedside Urine Leukocytes +/- 15 Esterase ECG Data Attestation: I personally reviewed and interpreted this ECG as follows: Interpretation: Sinus rhythm Ventricular rate 1 under Normal axis Normal QRS Normal QTC No ST T wave changes MDM Narrative Medical decision making narrative: Patient is not in DKA. She actually had 1 episode of low blood sugar and tolerated oral intake and her blood sugar remained appropriate afterwards. Low suspicion for seizure like activity given her presentation today. This is certainly not a CVA. Patient did have a bowel movement at the time. Potentially could have been a orthostatic issue. Patient and mother state that they feel well enough to go home. Will discharge home without further workup. She was given return precautions. Patient expressed understanding and agreement. Discharge Plan Departure Patient Disposition: Home Clinical Impression: Syncope Instructions: DI for Syncope in Adults (Fainting) Activity Restrictions/Additional Instructions: I do recommend that you continue to take all of your medications as directed. Be sure that you were eating a balanced diet. Contact your primary doctor for a follow-up. Return to the emergency department for new or worsening symptoms. Prescriptions: No Action glucose 4 gram tablet,chewable 4 gram PO Q15M PRN (Reason: hypoglycemia) Qty: 30 0RF Rx Instructions: until response Glucagon Emergency Kit (human) 1 mg recon soln 1 mg subcut DIRECTED ondansetron 4 mg tablet,disintegrating 4 mg PO Q8H PRN (Reason: nausea and vomiting) Qty: 10 0RF atropine 1 % drops 1 drp ophthalmic (eye) BEDTIME Patient Comments: INSTILL ONE DROP INTO BOTH EYES ONCE DAILY Rx Instructions: L eye only Simbrinza 1-0.2 % drops,suspension 1 drp ophthalmic (eye) BID Patient Comments: INSTILL ONE DROP INTO BOTH EYES TWO TIMES DAILY latanoprost 0.005 % drops 1 drp ophthalmic (eye) BEDTIME Patient Comments: INSTILL ONE DROP INTO BOTH EYES EVERY EVENING timolol maleate 0.5 % drops 1 drp ophthalmic (eye) BID Patient Comments: INSTILL ONE DROP INTO BOTH EYES TWO TIMES DAILY. insulin lispro [Humalog U-100 Insulin] 100 unit/mL Solution See Rx Instructions .ROUTE .COMPLEX Rx Instructions: pt unsure of dosage torsemide 20 mg tablet 20 mg PO DAILY Qty: 30 0RF diphenhydramine HCl 50 mg Capsule 50 mg PO BEDTIME PRN (Reason: Sleep) Rx Instructions: for itching and sleep pantoprazole 40 mg tablet,delayed release (DR/EC) 40 mg PO BEDTIME Patient Comments: TAKE ONE TABLET BY MOUTH ONE TIME DAILY insulin degludec [Tresiba FlexTouch U-200] 200 unit/mL (3 mL) insulin pen See Rx Instructions .ROUTE .COMPLEX Rx Instructions: 20u in the am 6units at bedtime sennosides [senna] 8.6 mg Tablet 8.6 mg PO PRN PRN (Reason: Constipation) acetaminophen 325 mg Tablet 975 mg PO Q8H Qty: 30 0RF naloxone [Narcan] 4 mg/actuation spray,non-aerosol 1 spray intranasal Q2M Qty: 2 0RF Rx Instructions: spray 1 dose into ONE nostril; alternate nostrils w each dose until help arrives ondansetron 4 mg tablet,disintegrating 4 mg PO Q8H PRN (Reason: nausea and vomiting) Qty: 15 0RF Referrals: Maria Ines Limon DO [Primary Care Provider] - Stand Alone Forms: Patient Portal/API
[2022-09-11] MEDS: HYDROCODONE/ACET 5/325 TABLET 1 TAB PO (19:22)
[2022-09-11 20:59] LABS: Bacteria Urine Moderate (10-30); Culture Indicated Urine Specimen Cultured; RBC Urine 10-30/HPF (0-5/HPF); Squamous Epithelial Cell Urine 10-30 /HPF (0-5/HPF); Transitional Epi Cells Urine 1-5/HPF (0-5/HPF); WBC Urine 10-30/HPF (0-5/HPF)
== END 2022-09-11 22:24 | disposition home or self-care (01) ==
PROVIDERS: Emergency Medicine; Emergency Provider Emergency Medicine; PCP Student in an Organized Health Care Education/Training Program
DX: R55 Syncope and collapse (principal); R07.9 Chest pain, unspecified; Z20.822 Contact with and (suspected) exposure to COVID-19; Z79.899 Other long term (current) drug therapy
CPT/HCPCS: 36415; 71045; 80053; 81003; 81015; 81025; 82550; 82962; 83690; 83735; 83880; 84484; 85025; 85610; 85730; 87086; 87635; 93005; 93010; 96360; 99284; C9803

== ENCOUNTER 2022-09-13 10:26 | Emergency (ER) | payer OTHER, MEDICAID, SELFPAY ==
[2022-07-02 16:19] VITALS: BMI 20.8
--- NOTE | 2022-09-13 10:33 | ED_ITS ---
HPI - General Adult General Chief complaint: Ear Stated complaint: Right Side of Face Swollen Time Seen by Provider: 09/13/22 10:30 History of Present Illness HPI narrative: 32-year-old female nonsmoker with extensive medical history include diabetes with frequent visits for DKA, CHF presents with pain and swelling of her right ear and anterior to her ear. She denies any fever or chills and has had no nausea or vomiting. It hurts her to touch the right side of her face and ear. She is developed some swelling of her upper eyelid but has no visual change or disturbance. She denies runny nose, or cough Related Data Home Medications Medication Instructions Recorded Confirmed glucagon (human recombinant) 1 mg 1 mg SUBCUT DIRECTED 02/16/19 07/02/22 solution for injection (Glucagon Emergency Kit) diphenhydramine HCl 50 mg capsule 50 mg PO BEDTIME PRN Sleep 09/29/20 07/02/22 insulin degludec 200 unit/mL (3 See Rx Instructions .Route .COMPLEX 11/13/21 07/02/22 mL) subcutaneous pen (Tresiba FlexTouch U-200 insulin) pantoprazole 40 mg tablet,delayed 40 mg PO BEDTIME 11/13/21 07/02/22 release sennosides 8.6 mg tablet (senna) 8.6 mg PO PRN PRN Constipation 11/13/21 07/02/22 atropine 1 % eye drops 1 drp ophthalmic (eye) BEDTIME 07/02/22 07/02/22 brinzolamide 1 %-brimonidine 0.2 % 1 drp ophthalmic (eye) BID 07/02/22 07/02/22 eye drops,suspension (Simbrinza) insulin lispro 100 unit/mL See Rx Instructions .Route .COMPLEX 07/02/22 07/04/22 subcutaneous solution (Humalog U-100 Insulin) latanoprost 0.005 % eye drops 1 drp ophthalmic (eye) BEDTIME 07/02/22 07/02/22 timolol maleate 0.5 % eye drops 1 drp ophthalmic (eye) BID 07/02/22 07/02/22 Previous Rx's Medication Instructions Recorded glucose 4 gram chewable tablet 4 gram PO Q15M PRN hypoglycemia 12/12/18 #30 tabs ondansetron 4 mg disintegrating 4 mg PO Q8H PRN nausea and 11/08/21 tablet vomiting #10 tabs acetaminophen 325 mg tablet 975 mg PO Q8H #30 tabs 11/18/21 naloxone 4 mg/actuation nasal 1 spray intranasal Q2M #2 ea 11/18/21 spray (Narcan) ondansetron 4 mg disintegrating 4 mg PO Q8H PRN nausea and 03/18/22 tablet vomiting #15 tabs torsemide 20 mg tablet 20 mg PO DAILY #30 tabs 07/05/22 azithromycin 250 mg tablet See Rx Instructions PO .COMPLEX #6 09/13/22 tabs ciprofloxacin 0.3 %-dexamethasone 4 drp EAR-RIGHT BID 10 days #7.5 mL 09/13/22 0.1 % ear drops,suspension (Ciprodex) hydrocodone 5 mg-acetaminophen 325 1 tab PO Q4-6H PRN pain #10 tabs 09/13/22 mg tablet Allergies Allergy/AdvReac Type Severity Reaction Status Date / Time abdalla [ABDALLA] Allergy Intermediate Hives, Verified 09/11/22 16:44 pruritus iodine [IODINE] Allergy Intermediate rash, itchy Verified 09/11/22 16:44 morphine Allergy Intermediate Difficulty Verified 09/11/22 16:44 Breathing shellfish derived Allergy Intermediate rash Verified 09/11/22 16:44 [SHELLFISH DERIVED] adhesive [ADHESIVE] Allergy Unknown tape Verified 09/11/22 16:44 latex [LATEX] Allergy Unknown Hives Verified 09/11/22 16:44 Review of Systems Review of Systems Narrative: GENERAL: Denies chills, fatigue, malaise, fever, sweats. HEENT: See HPI RESPIRATORY: Denies dyspnea, cough, wheezing, hemoptysis, sputum. CARDIOVASCULAR: Denies chest pain, palpitations, orthopnea, edema, GASTROINTESTINAL: Denies nausea, vomiting, abdominal pain, diarrhea, constipation, melena. : Denies dysuria, frequency, incontinence, hematuria, urinary retention. MUSCULOSKELETAL: denies weakness, joint pain, or bony pain SKIN: Denies rash, skin lesions, or other NEUROLOGIC: Denies weakness, headache, numbness, change in speech, confusion, seizures, incoordination. PSYCHIATRIC: No concerning psychosocial issues. 12 point review of systems is negative except for those stated above Patient History Medical History DKA (diabetic ketoacidoses) History of pyelonephritis Irregular menstrual cycle Migraine headache Nephrolithiasis Noncompliance w/medication treatment due to intermit use of medication Type 1 diabetes mellitus Surgical History History of ureter stent Hx of cataract surgery Hx of local excision of skin lesion Status post cholecystectomy Status post laser lithotripsy of ureteral calculus Isabella teeth extracted Family History Father In good health Mother Cardiac disease Social History details: Engaged household members: family Smoking Status: Never smoker alcohol intake: never Smoking Status: Never smoker alcohol intake frequency: holidays/special occasions only Substance Use Type: does not use Exam Narrative Exam Narrative: GEN: AOx3 and in mild distress, tearful EYES: Pupils are equal, round, and reactive to light and accommodation. Extraoccular muscles are intact bilaterally. There is no subconjunctival hemorrhage or exudate. ENT: R external auditory canal swollen, erythematous and tender, no obvious drainage, tympanic membrane intact, no tenderness over mastoid, there is some minimal erythema and tenderness anterior to the tragus consistent with possible early cellulitis versus reactive lymphadenopathy. Mucous membranes are moist, airway is patent, no tonsillar swelling, no uvular pointing no mass effect. CHEST: Lungs are clear to auscultation bilaterally and free of wheezes, rales, or rhonchi. Heart rate is regular rhythm, there are no murmurs, clicks, rubs, or gallops. There is no chest wall tenderness. ABD: Abdomen is soft and nontender. There is no guarding or rebound. Bowel sounds are normal in all 4 quadrants. There is no mass or organomegaly. EXT: Full painless ROM of all extremities with no loss of sensation or strength. SKIN: Warm, pink, and dry. No erythema or rash Initial Vital Signs Initial Vital Signs: Vital Signs Pulse Rate 101 H 09/13/22 10:39 Blood Pressure 138/89 09/13/22 10:39 Pulse Oximetry 99 09/13/22 10:39 Oxygen Delivery Method Room Air 09/13/22 10:39 Course Orders Ordered: Discontinued Medications Hydrocodone Bitart/Acetaminophen (Hydrocodone/Acet 5/325 Tablet) 1 tab PO NOW ONE Stop: 09/13/22 10:56 Last Admin: 09/13/22 11:18 Dose: 1 tab Documented By: AT Consultations Consultation #1: Discussed with on-call ENT, Dr. Tanner. We have discussed patient's history and physical exam and he recommend Ciprodex drops twice daily as well as oral azithromycin and follow-up Vital Signs Vital signs: Vital Signs - 8 hr 09/13/22 10:39 09/13/22 10:41 Temperature 97.8 F Pulse Rate 101 H 101 H Respiratory Rate 18 Blood Pressure 138/89 138/89 Pulse Oximetry 99 99 Oxygen Delivery Method Room Air Room Air Medical Decision Making Lab Data Labs: Lab Results 09/13/22 Range/Units 11:35 Group A Strep (PCR) Negative (Negative) MDM Narrative Medical decision making narrative: [32] year old patient presents with right ear pain Multiple etiologies for patient's symptoms considered including, but not limited to: [Otitis media versus otitis externa versus mastoiditis versus facial cellulitis versus strep pharyngitis versus other] Prior Charts reviewed in our EMR Primary Historian: patient Labs reviewed and interpreted by myself: Rapid strep negative Imaging reviewed: None indicated Consultations: Discussed with ENT, see details above Patient's symptoms improved over duration of stay with above-stated therapies. Patient shows no signs of sepsis or diabetic emergency, she is controlling secretions, able to swallow and has no respiratory distress. Findings and discharge diagnosis discussed with patient/family followed by verbalization of understanding Return precautions discussed with patient/family whom verbalize understanding of diagnosis and plan Discharge Plan Departure Patient Disposition: Home Clinical Impression: Otitis externa, Cellulitis of face Instructions: DI for Cellulitis -- Adult, DI for Otitis Externa Activity Restrictions/Additional Instructions: *You have been diagnosed with [otitis externa with mild facial cellulitis] *What to do: *Please continue to take your regular medications as directed. [x ] New medication prescriptions sent to your pharmacy: [ ] [ ] New medication written as a paper prescription [ ] No new medications given *Please follow up with your primary care provider in 2-3 days, call for an appointment. Let them know you were seen in the Emergency Department and that we ask that you be seen in follow up. We will electronically transmit a record of today's note if your PCP is in our system *If you do not have a primary care provider please contact the [facility] Resource line at [phone]. They will ask some questions about your medical history and help get you set up with a doctor in the community. *Return to Emergency Department if you should have any new, worsening or concerning symptoms, such as [fever greater than 101 F, shaking chills, wors ening pain, persistent vomiting or other bothersome symptoms] Prescriptions: New ciprofloxacin-dexamethasone [Ciprodex] 0.3-0.1 % drops,suspension 4 drp EAR-RIGHT BID 10 Days Qty: 7.5 0RF azithromycin 250 mg tablet See Rx Instructions .ROUTE .COMPLEX Qty: 6 0RF Rx Instructions: For 250 mg dose pack: take 500 mg today (day 1), then 250 mg for 4 days (days 2-5) hydrocodone-acetaminophen 5-325 mg tablet 1 tab PO Q4-6H PRN (Reason: pain) Qty: 10 0RF No Action glucose 4 gram tablet,chewable 4 gram PO Q15M PRN (Reason: hypoglycemia) Qty: 30 0RF Rx Instructions: until response Glucagon Emergency Kit (human) 1 mg recon soln 1 mg subcut DIRECTED ondansetron 4 mg tablet,disintegrating 4 mg PO Q8H PRN (Reason: nausea and vomiting) Qty: 10 0RF atropine 1 % drops 1 drp ophthalmic (eye) BEDTIME Patient Comments: INSTILL ONE DROP INTO BOTH EYES ONCE DAILY Rx Instructions: L eye only Simbrinza 1-0.2 % drops,suspension 1 drp ophthalmic (eye) BID Patient Comments: INSTILL ONE DROP INTO BOTH EYES TWO TIMES DAILY latanoprost 0.005 % drops 1 drp ophthalmic (eye) BEDTIME Patient Comments: INSTILL ONE DROP INTO BOTH EYES EVERY EVENING timolol maleate 0.5 % drops 1 drp ophthalmic (eye) BID Patient Comments: INSTILL ONE DROP INTO BOTH EYES TWO TIMES DAILY. insulin lispro [Humalog U-100 Insulin] 100 unit/mL Solution See Rx Instructions .ROUTE .COMPLEX Rx Instructions: pt unsure of dosage torsemide 20 mg tablet 20 mg PO DAILY Qty: 30 0RF diphenhydramine HCl 50 mg Capsule 50 mg PO BEDTIME PRN (Reason: Sleep) Rx Instructions: for itching and sleep pantoprazole 40 mg tablet,delayed release (DR/EC) 40 mg PO BEDTIME Patient Comments: TAKE ONE TABLET BY MOUTH ONE TIME DAILY insulin degludec [Tresiba FlexTouch U-200] 200 unit/mL (3 mL) insulin pen See Rx Instructions .ROUTE .COMPLEX Rx Instructions: 20u in the am 6units at bedtime sennosides [senna] 8.6 mg Tablet 8.6 mg PO PRN PRN (Reason: Constipation) acetaminophen 325 mg Tablet 975 mg PO Q8H Qty: 30 0RF naloxone [Narcan] 4 mg/actuation spray,non-aerosol 1 spray intranasal Q2M Qty: 2 0RF Rx Instructions: spray 1 dose into ONE nostril; alternate nostrils w each dose until help arrives ondansetron 4 mg tablet,disintegrating 4 mg PO Q8H PRN (Reason: nausea and vomiting) Qty: 15 0RF Referrals: Maria Ines Limon DO [Primary Care Provider] - Maximino Bardales MD [Physician] - Stand Alone Forms: Patient Portal/API
[2022-09-13 10:39] VITALS: BP 138/89; PULSE 101; O2SAT 99
[2022-09-13 10:41] VITALS: BP 138/89; PULSE 101; RESP 18; TEMP 36.6; O2SAT 99
[2022-09-13 10:51] VITALS: BMI 21.3
[2022-09-13] MEDS: HYDROCODONE/ACET 5/325 TABLET 1 TAB PO (11:18)
[2022-09-13 11:52] LABS: Strep Grp A by PCR Rapid Negative (Negative)
--- NOTE | 2022-09-13 12:15 | PC.NURSE ---
Patient tolerates oral fluids, drinking apple juice and water. Pt reports pain with swallowing, tearful.
[2022-09-13 12:35] VITALS: BP 136/89; PULSE 102; RESP 18; O2SAT 98
== END 2022-09-13 12:37 | disposition home or self-care (01) ==
PROVIDERS: Emergency Provider Emergency Medicine; PCP Student in an Organized Health Care Education/Training Program
DX: L03.211 Cellulitis of face (principal); H60.91 Unspecified otitis externa, right ear
CPT/HCPCS: 87651; 99283

== ENCOUNTER 2022-12-11 11:35 | Emergency (ER) | payer OTHER, MEDICAID, SELFPAY ==
[2022-07-02 16:19] VITALS: BMI 20.8
[2022-12-11] VITALS (10 sets, daily range): BP systolic 106–173; BP diastolic 65–100; PULSE 87–101; RESP 15–20; TEMP 36.8; O2SAT 95–99; BMI 21.3
[2022-12-11 12:03] LABS: Add Manual Diff / Slide Review NO; Basophils Absolute Auto 100 /uL (0-100); Basophils Percent Auto 0.9 % (0-2); Eosinophils Absolute Auto 200 /uL (0-450); Eosinophils Percent Auto 2.8 % (2-4); Hemoglobin 12.9 g/dL (12.0-16.0); Lymphocytes Absolute Auto 2000 /uL (1100-4500); Lymphocytes Percent Auto 28.7 % (25-40); Mean Corpuscular Hemoglobin 28.2 PG (26-34); Mean Corpuscular Volume 85.2 fL (80-100); Monocytes Absolute Auto 600 /uL (0-900); Monocytes Percent Auto 8.5 % (3-14); Neutrophils Absolute Auto 4100 /uL (1500-7000); Neutrophils Percent Auto 59.1 % (50-75); Platelet Count 364 X10^3/uL (150-400); Red Blood Cell Count 4.57 X10^6/uL (4.0-5.2); Red Cell Distribution Width 13.5 % (11.6-14.8)
[2022-12-11 12:20] LABS: Alanine Aminotransferase 59 IU/L (<35); Albumin 3.6 g/dL (3.5-5.0); Albumin Globulin Ratio 1.1 (1.0-2.8); Alkaline Phosphatase 200 U/L (38-126); Aspartate Aminotransferase 46 IU/L (14-36); BUN Creatinine Ratio 26.2 (6-22); Bilirubin Total 0.3 mg/dL (0.2-1.3); Blood Urea Nitrogen 28 mg/dL (7-17); Carbon Dioxide 30 mmol/L (22-32); Chloride 102 mmol/L (98-107); Estimated Glomerular Filt Rate > 60 mL/min (>60); Globulin 3.4 g/dL (1.7-4.1); Glucose 283 mg/dL (70-100); HEMOLYSIS < 15 (0-50); Lipase 48 U/L (23-300); Sodium 136 mmol/L (137-145)
--- NOTE | 2022-12-11 12:26 | DI.CT.S_ITS ---
PROCEDURE: CT ABDOMEN PELVIS W CON INDICATIONS: abd pain TECHNIQUE: After the administration of oral and IV contrast, axial sections were acquired from the lung bases to the pubic symphysis. Coronal and sagittal reformats were performed. For radiation dose reduction, the following was used: automated exposure control, adjustment of mA and/or kV according to patient size. COMPARISON: [facility], CT, CT ABDOMEN PELVIS W CON, 06/17/2022, 1:35. FINDINGS: Image quality: Excellent. Lung bases: Unremarkable. Heart: No significant findings. ABDOMEN: Liver: Medial right lobe low-attenuation focus on series 2 image 34 is unchanged. Gallbladder: Removed. Biliary ducts: Unremarkable. Pancreas: Unremarkable. Spleen: Unremarkable. Adrenal Glands: Unremarkable. Kidneys and Ureters: Unremarkable. Stomach and Bowel: Stomach, small bowel loops, and colon are nonobstructive. Prominent colonic stool is present. Peritoneum: No abnormal intraperitoneal fluid. No free air. Ventral Wall: No hernia. Abdominal Nodes: No retroperitoneal or mesenteric adenopathy by size criteria. Vessels: Aorta and inferior vena cava are normal in size. PELVIS: Pelvic Organs: Unremarkable. Bladder: Unremarkable. Pelvic Nodes: No enlarged lymph nodes. Miscellaneous: No inguinal hernias are seen. Bones: Unremarkable. IMPRESSION: Prominent colonic stool. Recommend correlation constipation. No obstruction. Dictated by: Alejandra Sanchez M.D. on 12/11/2022 at 15:05 Approved by: Alejandra Sanchez M.D. on 12/11/2022 at 15:11
[2022-12-11 12:32] LABS: Potassium 6.4 mmol/L (3.4-5.1)
--- NOTE | 2022-12-11 13:15 | ED.ABDPAIN ---
HPI - Abdominal Pain General Chief Complaint: Abdominal Pain Stated Complaint: R/ mid ABD pain/ very cold Time Seen by Provider: 12/11/22 12:19 Mode of arrival: Wheelchair History of Present Illness HPI narrative: Patient 32-year-old female history of none controlled type 1 diabetes, congestive heart failure presenting today with abdominal pain. She reports that she is having some epigastric pain. She is previously had a cholecystectomy. She is having some nauseated no vomiting no fever or chills. She reports that she is been doing good with her insulin she actually has not been admitted for DKA or admitted at all since June of this year. She denies any fever or chills. No chest pain. She reports having multiple episodes of diarrhea every time she eats. She has some cramping no bloody stools. Not dizzy or lightheaded. She reports that she is staying hydrated with water and Gatorade. Related Data Home Medications Medication Instructions Recorded Confirmed glucagon (human recombinant) 1 mg 1 mg SUBCUT DIRECTED 02/16/19 07/02/22 solution for injection (Glucagon Emergency Kit) diphenhydramine HCl 50 mg capsule 50 mg PO BEDTIME PRN Sleep 09/29/20 07/02/22 insulin degludec 200 unit/mL (3 See Rx Instructions .Route .COMPLEX 11/13/21 07/02/22 mL) subcutaneous pen (Tresiba FlexTouch U-200 insulin) pantoprazole 40 mg tablet,delayed 40 mg PO BEDTIME 11/13/21 07/02/22 release sennosides 8.6 mg tablet (senna) 8.6 mg PO PRN PRN Constipation 11/13/21 07/02/22 atropine 1 % eye drops 1 drp ophthalmic (eye) BEDTIME 07/02/22 07/02/22 brinzolamide 1 %-brimonidine 0.2 % 1 drp ophthalmic (eye) BID 07/02/22 07/02/22 eye drops,suspension (Simbrinza) insulin lispro 100 unit/mL See Rx Instructions .Route .COMPLEX 07/02/22 07/04/22 subcutaneous solution (Humalog U-100 Insulin) latanoprost 0.005 % eye drops 1 drp ophthalmic (eye) BEDTIME 07/02/22 07/02/22 timolol maleate 0.5 % eye drops 1 drp ophthalmic (eye) BID 07/02/22 07/02/22 Previous Rx's Medication Instructions Recorded glucose 4 gram chewable tablet 4 gram PO Q15M PRN hypoglycemia 12/12/18 #30 tabs ondansetron 4 mg disintegrating 4 mg PO Q8H PRN nausea and 11/08/21 tablet vomiting #10 tabs acetaminophen 325 mg tablet 975 mg PO Q8H #30 tabs 11/18/21 naloxone 4 mg/actuation nasal 1 spray intranasal Q2M #2 ea 11/18/21 spray (Narcan) ondansetron 4 mg disintegrating 4 mg PO Q8H PRN nausea and 03/18/22 tablet vomiting #15 tabs torsemide 20 mg tablet 20 mg PO DAILY #30 tabs 07/05/22 azithromycin 250 mg tablet See Rx Instructions PO .COMPLEX #6 09/13/22 tabs hydrocodone 5 mg-acetaminophen 325 1 tab PO Q4-6H PRN pain #10 tabs 09/13/22 mg tablet promethazine 25 mg tablet 25 mg PO Q6H PRN nausea and 12/11/22 vomiting #30 tabs Allergies Allergy/AdvReac Type Severity Reaction Status Date / Time abdalla [ABDALLA] Allergy Intermediate Hives, Verified 12/11/22 11:43 pruritus iodine [IODINE] Allergy Intermediate rash, itchy Verified 12/11/22 11:43 morphine Allergy Intermediate Difficulty Verified 12/11/22 11:43 Breathing shellfish derived Allergy Intermediate rash Verified 12/11/22 11:43 [SHELLFISH DERIVED] adhesive [ADHESIVE] Allergy Unknown tape Verified 12/11/22 11:43 latex [LATEX] Allergy Unknown Hives Verified 12/11/22 11:43 Review of Systems Review of Systems ROS Unobtainable: All systems reviewed & are unremarkable except as noted in HPI and below Patient History Medical History DKA (diabetic ketoacidoses) History of pyelonephritis Irregular menstrual cycle Migraine headache Nephrolithiasis Noncompliance w/medication treatment due to intermit use of medication Type 1 diabetes mellitus Surgical History History of ureter stent Hx of cataract surgery Hx of local excision of skin lesion Status post cholecystectomy Status post laser lithotripsy of ureteral calculus [place] teeth extracted Family History Father In good health Mother Cardiac disease Social History details: Engaged household members: family Smoking Status: Never smoker alcohol intake: never Smoking Status: Never smoker alcohol intake frequency: holidays/special occasions only Substance Use Type: does not use Exam Initial Vital Signs Initial Vital Signs: Vital Signs Temperature 98.3 F 12/11/22 11:43 Pulse Rate 87 12/11/22 11:43 Respiratory Rate 15 12/11/22 11:43 Blood Pressure 120/76 12/11/22 11:43 Pulse Oximetry 99 12/11/22 11:43 Oxygen Delivery Method Room Air 12/11/22 11:43 GENERAL: Alert 32-year-old female HEENT: Head atraumatic,EOMI, pupils reactive, face symmetric, moist mucous membranes CARDIOVASCULAR: Regular rate and rhythm without murmurs, rubs or gallops. RESPIRATORY: Breath sounds equal bilaterally, no wheezes rales or rhonchi. ABDOMEN: Soft mild epigastric pain no guarding no rebound no significant right upper quadrant pain. EXTREMITIES: Normal range of motion, no clubbing or edema. Neurovascularly intact NEUROLOGICAL: Alert and oriented x4 SKIN: Warm, dry, no laceration, no petechiae, no rashes or lesions. Course Orders Ordered: ED Orders 12/11/22 11:56 Complete Blood Count AUTO DIFF Stat Comprehensive Metabolic Panel Stat Lipase Stat 12/11/22 12:22 Urine Microscopic Stat 12/11/22 12:26 CT abdomen pelvis w con Stat 12/11/22 12:45 EKG-12 Lead Routine 12/11/22 13:25 BMP [Basic Metabolic Panel] Stat 12/11/22 16:41 BMP [Basic Metabolic Panel] Stat Discontinued Medications Dextrose (Dextrose 50 % In Water 25 Gm/50 Ml Syringe) 25 gm IV NOW ONE Stop: 12/11/22 13:07 Last Admin: 12/11/22 14:49 Dose: 25 gm Documented By: JUDY Diphenhydramine HCl (Diphenhydramine 50 Mg/Ml Vial) 50 mg IV NOW ONE Stop: 12/11/22 12:27 Last Admin: 12/11/22 13:51 Dose: 50 mg Documented By: JUDY Furosemide (Furosemide 40 Mg/4 Ml Vial) 40 mg IV NOW ONE Stop: 12/11/22 13:07 Last Admin: 12/11/22 14:49 Dose: 40 mg Documented By: JUDY Hydromorphone HCl (Hydromorphone 1 Mg Inj) 1 mg IV NOW ONE Stop: 12/11/22 18:27 Last Admin: 12/11/22 18:35 Dose: 1 mg Documented By: JANNET Insulin Human Regular (Insulin Regular 100 Unit/Ml 3 Ml Vial) 5 unit IV NOW ONE Stop: 12/11/22 13:07 Last Admin: 12/11/22 14:50 Dose: 5 unit Documented By: JUDY Co-signed By: Methylprednisolone (Methylprednisolone 125 Mg/2 Ml Vial) 125 mg IV NOW ONE Stop: 12/11/22 12:27 Last Admin: 12/11/22 13:50 Dose: 125 mg Documented By: JUDY Ondansetron HCl (Ondansetron 4 Mg/2 Ml Inj) 4 mg IV NOW PRN PRN Reason: Nausea And Vomiting Vital Signs Vital signs: Vital Signs - 8 hr 12/11/22 15:01 12/11/22 15:38 12/11/22 15:39 Pulse Rate 94 H 101 H Respiratory Rate 20 Blood Pressure 173/100 H 160/93 H Pulse Oximetry 97 95 Oxygen Delivery Method Room Air 12/11/22 15:39 12/11/22 16:00 12/11/22 16:00 Pulse Rate 100 H 97 H Respiratory Rate Blood Pressure 127/77 Pulse Oximetry 97 97 Oxygen Delivery Method 12/11/22 16:30 12/11/22 16:30 12/11/22 17:00 Pulse Rate 94 H Respiratory Rate Blood Pressure 115/76 112/70 Pulse Oximetry 98 Oxygen Delivery Method 12/11/22 17:00 12/11/22 17:30 12/11/22 17:30 Pulse Rate 91 H 91 H Respiratory Rate Blood Pressure 110/65 Pulse Oximetry 98 97 Oxygen Delivery Method 12/11/22 18:00 12/11/22 18:00 12/11/22 18:30 Pulse Rate 91 H Respiratory Rate Blood Pressure 106/70 119/81 Pulse Oximetry 98 Oxygen Delivery Method 12/11/22 18:30 Pulse Rate 91 H Respiratory Rate Blood Pressure Pulse Oximetry 97 Oxygen Delivery Method MDM - Abdominal Pain Lab Data 12/11/22 11:56 12/11/22 16:41 Labs: Lab Results 12/11/22 12/11/22 12/11/22 Range/Units 11:56 11:56 12:22 WBC 7.0 (4.5-11.0) X10^3/uL RBC 4.57 (4.0-5.2) X10^6/uL Hgb 12.9 (12.0-16.0) g/dL Hct 39.0 (36-46) % MCV 85.2 (80-100) fL MCH 28.2 (26-34) PG MCHC 33.0 (30-36) % RDW 13.5 (11.6-14.8) % Plt Count 364 (150-400) X10^3/uL Neut % (Auto) 59.1 (50-75) % Lymph % (Auto) 28.7 (25-40) % Isabel[place] % (Auto) 8.5 (3-14) % Eos % (Auto) 2.8 (2-4) % Baso % (Auto) 0.9 (0-2) % Neut # (Auto) 4100 (4926-2814) /uL Lymph # (Auto) 2000 (1918-8553) /uL Isabela # (Auto) 600 (0-900) /uL Eos # (Auto) 200 (0-450) /uL Baso # (Auto) 100 (0-100) /uL Sodium 136 L (137-145) mmol/L Potassium 6.4 H* (3.4-5.1) mmol/L Chloride 102 (98-107) mmol/L Carbon Dioxide 30 (22-32) mmol/L BUN 28 H (7-17) mg/dL Creatinine 1.07 H (0.52-1.04) mg/dL Estimated GFR > 60 (>60) mL/min BUN/Creatinine Ratio 26.2 H (6-22) Glucose 283 H (70-100) mg/dL Calcium 9.0 (8.4-10.2) mg/dL Total Bilirubin 0.3 (0.2-1.3) mg/dL AST 46 H (14-36) IU/L ALT 59 H (<35) IU/L Alkaline Phosphatase 200 H (38-126) U/L Total Protein 7.0 (6.3-8.2) g/dL Albumin 3.6 (3.5-5.0) g/dL Globulin 3.4 (1.7-4.1) g/dL Albumin/Globulin Ratio 1.1 (1.0-2.8) Lipase 48 (23-300) U/L Urine RBC 1-5/hpf D (0-5/HPF) Urine WBC 1-5/hpf (0-5/HPF) Ur Squamous Epith Cells 5-10 /hpf H (0-5/HPF) Urine Bacteria Few (2-10) H (None) Ur Culture Indicated? Cult not indicated 12/11/22 12/11/22 Range/Units 13:25 16:41 WBC (4.5-11.0) X10^3/uL RBC (4.0-5.2) X10^6/uL Hgb (12.0-16.0) g/dL Hct (36-46) % MCV (80-100) fL MCH (26-34) PG MCHC (30-36) % RDW (11.6-14.8) % Plt Count (150-400) X10^3/uL Neut % (Auto) (50-75) % Lymph % (Auto) (25-40) % Isabela % (Auto) (3-14) % Eos % (Auto) (2-4) % Baso % (Auto) (0-2) % Neut # (Auto) (2195-3862) /uL Lymph # (Auto) (5899-0001) /uL Isabela # (Auto) (0-900) /uL Eos # (Auto) (0-450) /uL Baso # (Auto) (0-100) /uL Sodium 137 138 (137-145) mmol/L Potassium 6.4 H* 5.3 H (3.4-5.1) mmol/L Chloride 101 104 (98-107) mmol/L Carbon Dioxide 31 29 (22-32) mmol/L BUN 27 H 26 H (7-17) mg/dL Creatinine 1.04 0.98 (0.52-1.04) mg/dL Estimated GFR > 60 > 60 (>60) mL/min BUN/Creatinine Ratio 26.0 H 26.5 H (6-22) Glucose 308 H 175 H D (70-100) mg/dL Calcium 9.1 8.9 (8.4-10.2) mg/dL Total Bilirubin (0.2-1.3) mg/dL AST (14-36) IU/L ALT (<35) IU/L Alkaline Phosphatase (38-126) U/L Total Protein (6.3-8.2) g/dL Albumin (3.5-5.0) g/dL Globulin (1.7-4.1) g/dL Albumin/Globulin Ratio (1.0-2.8) Lipase (23-300) U/L Urine RBC (0-5/HPF) Urine WBC (0-5/HPF) Ur Squamous Epith Cells (0-5/HPF) Urine Bacteria (None) Ur Culture Indicated? Point of care testing: Point of Care Testing Test Results Negative Glucose POC 305 Urine Dip Bedside Urine Glucose 1000 mg/dl Bedside Urine Bilirubin - Negative Bedside Urine Ketone - Negative Urine Specific [place] 1.015 Bedside Urine Occult Blood +++ Bedside Urine pH 6.5 Bedside Urine Protein +++ 300 Bedside Urine Urobilinogen - Negative Bedside Urine Nitrite - Negative Bedside Urine Leukocytes - Negative Esterase Imaging Data CT scan - abdomen/pelvis: Radiologist's Impression: PROCEDURE:? CT ABDOMEN PELVIS W CON ? INDICATIONS:? abd pain ? TECHNIQUE:? After the administration of oral and IV contrast, axial sections were acquired from the lung bases to the pubic symphysis.? Coronal and sagittal reformats were performed.? For radiation dose reduction, the following was used:? automated exposure control, adjustment of mA and/or kV according to patient size. ? COMPARISON:? [facility], CT, CT ABDOMEN PELVIS W CON, 06/17/2022, 1:35. ? FINDINGS:? Image quality:? Excellent.? ? Lung bases:? Unremarkable.? ? Heart:? No significant findings. ? ? ABDOMEN: Liver:? Medial right lobe low-attenuation focus on series 2 image 34 is unchanged. Gallbladder:? Removed.? ? Biliary ducts:? Unremarkable.? ? Pancreas:? Unremarkable.? ? Spleen:? Unremarkable.? ? Adrenal Glands:? Unremarkable.? ? Kidneys and Ureters:? Unremarkable.? ? ? Stomach and Bowel:? Stomach, small bowel loops, and colon are nonobstructive.? Prominent colonic stool is present.? Peritoneum:? No abnormal intraperitoneal fluid.? No free air.? ? Ventral Wall: ? No hernia.? Abdominal Nodes:? No retroperitoneal or mesenteric adenopathy by size criteria.? Vessels:? Aorta and inferior vena cava are normal in size.? ? PELVIS: Pelvic Organs:? Unremarkable.? ? Bladder:? Unremarkable.? ? Pelvic Nodes: No enlarged lymph nodes.? Miscellaneous: No inguinal hernias are seen. ? ? ? Bones:? Unremarkable.? IMPRESSION:? ? Prominent colonic stool.? Recommend correlation constipation.? No obstruction. ? ? Dictated by: Alejandra Sanchez M.D. on 12/11/2022 at 15:05 ? ? ECG Data Interpretation: Normal sinus rhythm rate 88 IA interval 134 QRS [address] changes similar to previous peaked T-waves use new from August Narrative Medical decision making narrative: Patient 32-year-old female history of brittle insulin-dependent diabetic presenting today with diarrhea and gastroenteritis like symptoms. She is tolerating fluids. She reports drinking multiple flavored jiménez along with some Gatorade. He is found to be hyperkalemic with a potassium of 6.4 which is repeated and remains the same. She is no evidence of DKA. She was complaining of some abdominal pain. CT is negative. She is taking furosemide for her congestive heart failure as needed. She is not having any chest pain or shortness of breath. Not convinced of how much diarrhea she is actually having with hyperkalemia. Possible the flavored water and Gatorade IV causing some hyperkalemia Discharge Plan Departure Patient Disposition: Home Clinical Impression: Acute hyperkalemia, Gastroenteritis Instructions: DI for Viral Gastroenteritis -- Adult, Hyperkalemia Activity Restrictions/Additional Instructions: *You have been diagnosed with high potassium and gastroenteritis *What to do: At this time check the sport drinks that you are drinking they may have high potassium. Recommend Pedialyte. *Continue to take medications as directed Phenergan 25 mg every 6 hours--> safeway *Follow up with your primary care provider in 2-3 days or call [phone] *Return to ER if you should have increasing chest pain shortness of breath belly pain not tolerating fluids or any new, worsening or concerning symptoms Prescriptions: New promethazine 25 mg tablet 25 mg PO Q6H PRN (Reason: nausea and vomiting) Qty: 30 0RF No Action glucose 4 gram tablet,chewable 4 gram PO Q15M PRN (Reason: hypoglycemia) Qty: 30 0RF Rx Instructions: until response Glucagon Emergency Kit (human) 1 mg recon soln 1 mg subcut DIRECTED ondansetron 4 mg tablet,disintegrating 4 mg PO Q8H PRN (Reason: nausea and vomiting) Qty: 10 0RF atropine 1 % drops 1 drp ophthalmic (eye) BEDTIME Patient Comments: INSTILL ONE DROP INTO BOTH EYES ONCE DAILY Rx Instructions: L eye only Simbrinza 1-0.2 % drops,suspension 1 drp ophthalmic (eye) BID Patient Comments: INSTILL ONE DROP INTO BOTH EYES TWO TIMES DAILY latanoprost 0.005 % drops 1 drp ophthalmic (eye) BEDTIME Patient Comments: INSTILL ONE DROP INTO BOTH EYES EVERY EVENING timolol maleate 0.5 % drops 1 drp ophthalmic (eye) BID Patient Comments: INSTILL ONE DROP INTO BOTH EYES TWO TIMES DAILY. insulin lispro [Humalog U-100 Insulin] 100 unit/mL Solution See Rx Instructions .ROUTE .COMPLEX Rx Instructions: pt unsure of dosage torsemide 20 mg tablet 20 mg PO DAILY Qty: 30 0RF azithromycin 250 mg tablet See Rx Instructions .ROUTE .COMPLEX Qty: 6 0RF Rx Instructions: For 250 mg dose pack: take 500 mg today (day 1), then 250 mg for 4 days (days 2-5) hydrocodone-acetaminophen 5-325 mg tablet 1 tab PO Q4-6H PRN (Reason: pain) Qty: 10 0RF diphenhydramine HCl 50 mg Capsule 50 mg PO BEDTIME PRN (Reason: Sleep) Rx Instructions: for itching and sleep pantoprazole 40 mg tablet,delayed release (DR/EC) 40 mg PO BEDTIME Patient Comments: TAKE ONE TABLET BY MOUTH ONE TIME DAILY insulin degludec [Tresiba FlexTouch U-200] 200 unit/mL (3 mL) insulin pen See Rx Instructions .ROUTE .COMPLEX Rx Instructions: 20u in the am 6units at bedtime sennosides [senna] 8.6 mg Tablet 8.6 mg PO PRN PRN (Reason: Constipation) acetaminophen 325 mg Tablet 975 mg PO Q8H Qty: 30 0RF naloxone [Narcan] 4 mg/actuation spray,non-aerosol 1 spray intranasal Q2M Qty: 2 0RF Rx Instructions: spray 1 dose into ONE nostril; alternate nostrils w each dose until help arrives ondansetron 4 mg tablet,disintegrating 4 mg PO Q8H PRN (Reason: nausea and vomiting) Qty: 15 0RF Referrals: Maria Ines Limon DO [Primary Care Provider] - Stand Alone Forms: Patient Portal/API
[2022-12-11 13:45] LABS: Bacteria Urine Few (2-10); Culture Indicated Urine Cult Not Indicated; RBC Urine 1-5/HPF (0-5/HPF); Squamous Epithelial Cell Urine 5-10 /HPF (0-5/HPF); WBC Urine 1-5/HPF (0-5/HPF)
[2022-12-11] MEDS: methylPREDNISolone 125 MG/2 ML VIAL IV (13:50)
[2022-12-11] MEDS: diphenhydrAMINE 50 MG/ML VIAL IV (13:51)
[2022-12-11 14:04] LABS: Blood Urea Nitrogen 27 mg/dL (7-17); Calcium 9.1 mg/dL (8.4-10.2); Carbon Dioxide 31 mmol/L (22-32); Chloride 101 mmol/L (98-107); Estimated Glomerular Filt Rate > 60 mL/min (>60); Glucose 308 mg/dL (70-100); HEMOLYSIS < 15 (0-50); Sodium 137 mmol/L (137-145)
[2022-12-11 14:10] LABS: Potassium 6.4 mmol/L (3.4-5.1)
[2022-12-11] MEDS: DEXTROSE 50 % IN WATER 25 GM/50 ML SYRINGE IV (14:49)
[2022-12-11] MEDS: FUROSEMIDE 40 MG/4 ML VIAL IV (14:49)
[2022-12-11] MEDS: INSULIN REGULAR 100 UNIT/ML 3 ML VIAL IV (14:50)
[2022-12-11 17:07] LABS: BUN Creatinine Ratio 26.5 (6-22); Blood Urea Nitrogen 26 mg/dL (7-17); Calcium 8.9 mg/dL (8.4-10.2); Carbon Dioxide 29 mmol/L (22-32); Chloride 104 mmol/L (98-107); Estimated Glomerular Filt Rate > 60 mL/min (>60); Glucose 175 mg/dL (70-100); HEMOLYSIS < 15 (0-50); Potassium 5.3 mmol/L (3.4-5.1); Sodium 138 mmol/L (137-145)
[2022-12-11] MEDS: HYDROMORPHONE 1 MG INJ IV (18:35)
== END 2022-12-11 18:45 | disposition home or self-care (01) ==
PROVIDERS: Student in an Organized Health Care Education/Training Program; Emergency Provider Emergency Medicine; PCP Student in an Organized Health Care Education/Training Program
DX: K52.9 Noninfective gastroenteritis and colitis, unspecified (principal); E87.5 Hyperkalemia; Z79.899 Other long term (current) drug therapy
CPT/HCPCS: 36415; 74177; 80048; 80053; 81003; 81015; 81025; 82962; 83690; 85025; 93005; 96374; 96375; 99284; J1170; J1200; J1940; J2930; Q9967

== ENCOUNTER 2023-03-30 10:46 | Emergency (ER) | payer OTHER, MEDICAID, SELFPAY ==
[2022-07-02 16:19] VITALS: BMI 20.8
[2023-03-30] VITALS (14 sets, daily range): BP systolic 132–226; BP diastolic 81–120; PULSE 80–86; RESP 7–16; TEMP 36.4; O2SAT 97–100; BMI 22.6
--- NOTE | 2023-03-30 11:08 | DI.RAD.S_ITS ---
PROCEDURE: XR CHEST 1V INDICATIONS: chest pain TECHNIQUE: One view of the chest was acquired. COMPARISON: [facility], CR, XR CHEST 1V, 09/11/2022, 16:52. FINDINGS: Surgical changes and devices: None. Lungs and pleura: Lungs are clear. No pleural effusions or pneumothorax. Mediastinum: Mediastinal contours appear normal. Heart size is normal. Bones and chest wall: No suspicious bony lesions. Overlying soft tissues appear unremarkable. IMPRESSION: No acute cardiopulmonary abnormality is seen. Dictated by: José Garcia M.D. on 03/30/2023 at 10:39 Approved by: José Garcia M.D. on 03/30/2023 at 10:40
[2023-03-30 11:17] LABS: Add Manual Diff / Slide Review NO; Basophils Absolute Auto 100 /uL (0-100); Basophils Percent Auto 1.2 % (0-2); Eosinophils Absolute Auto 200 /uL (0-450); Eosinophils Percent Auto 2.3 % (2-4); Hematocrit 38.5 % (36-46); Hemoglobin 12.8 g/dL (12.0-16.0); Lymphocytes Absolute Auto 2200 /uL (1100-4500); Lymphocytes Percent Auto 26.4 % (25-40); Mean Corpuscular HGB Conc 33.2 % (30-36); Mean Corpuscular Hemoglobin 28.3 PG (26-34); Mean Corpuscular Volume 85.3 fL (80-100); Monocytes Absolute Auto 500 /uL (0-900); Monocytes Percent Auto 6.4 % (3-14); Neutrophils Absolute Auto 5200 /uL (1500-7000); Neutrophils Percent Auto 63.7 % (50-75); Platelet Count 297 X10^3/uL (150-400); Red Blood Cell Count 4.51 X10^6/uL (4.0-5.2); Red Cell Distribution Width 13.3 % (11.6-14.8); White Blood Cell Count 8.2 X10^3/uL (4.5-11.0)
[2023-03-30 11:20] LABS: INR 0.9 (0.9-1.3); Prothrombin Time 10.3 SECONDS (9.4-12.5)
[2023-03-30 11:23] LABS: PTT Partial Thromboplastin Tim 34 SECONDS (25.1-36.5)
[2023-03-30 11:28] LABS: Alanine Aminotransferase 30 IU/L (<35); Albumin 2.8 g/dL (3.5-5.0); Albumin Globulin Ratio 0.9 (1.0-2.8); Alkaline Phosphatase 147 U/L (38-126); Aspartate Aminotransferase 26 IU/L (14-36); BUN Creatinine Ratio 28.1 (6-22); Bilirubin Total 0.5 mg/dL (0.2-1.3); Blood Urea Nitrogen 34 mg/dL (7-17); Calcium 8.3 mg/dL (8.4-10.2); Carbon Dioxide 28 mmol/L (22-32); Chloride 105 mmol/L (98-107); Creatine Kinase 196 U/L (30-135); Estimated Glomerular Filt Rate > 60 mL/min (>60); Globulin 3.1 g/dL (1.7-4.1); Glucose 159 mg/dL (70-100); HEMOLYSIS 19 (0-50); Lipase 44 U/L (23-300); Magnesium 2.2 mg/dL (1.6-2.3); Potassium 4.9 mmol/L (3.4-5.1); Sodium 134 mmol/L (137-145); Total Protein 5.9 g/dL (6.3-8.2)
[2023-03-30 11:39] LABS: Troponin I < 0.012 ng/mL (0.01-0.034)
[2023-03-30] MEDS: SODIUM CHLORIDE 0.9% 1,000 ML 1000 ML IV (12:07)
[2023-03-30] MEDS: KETOROLAC 30 MG/ML VIAL 15 MG IV (12:07)
[2023-03-30] MEDS: PROCHLORPERAZINE 10 MG/2 ML VIAL IV (12:07)
[2023-03-30] MEDS: diphenhydrAMINE 50 MG/ML VIAL 25 MG IV (12:07)
--- NOTE | 2023-03-30 12:12 | ED_ITS ---
HPI - General Adult General Chief complaint: Hypertension Stated complaint: HTN Time Seen by Provider: 03/30/23 11:01 Source: patient Mode of arrival: EMS History of Present Illness HPI narrative: Patient is a 33-year-old female well known to myself and facility uncontrolled with congestive heart failure, blindness in left eye, presents today with severe headache and worse headache of life. Mom reports that she had a normal yesterday. They were seen by Nephrology a couple weeks ago and started on losartan. In the office she had blood pressure with a systolic in the 40s. Mom has been checking her blood pressure a little elevated however today was well above 2. It remains true in the ED shows systolic greater than 200 over 100. She is nauseous with vomiting. She feels like her head is splitting. No numbness tingling or weakness. Related Data Home Medications Medication Instructions Recorded Confirmed glucagon (human recombinant) 1 mg 1 mg SUBCUT DIRECTED 02/16/19 07/02/22 solution for injection (Glucagon Emergency Kit) diphenhydramine HCl 50 mg capsule 50 mg PO BEDTIME PRN Sleep 09/29/20 07/02/22 insulin degludec 200 unit/mL (3 See Rx Instructions .Route .COMPLEX 11/13/21 07/02/22 mL) subcutaneous pen (Tresiba FlexTouch U-200 insulin) pantoprazole 40 mg tablet,delayed 40 mg PO BEDTIME 11/13/21 07/02/22 release sennosides 8.6 mg tablet (senna) 8.6 mg PO PRN PRN Constipation 11/13/21 07/02/22 atropine 1 % eye drops 1 drp ophthalmic (eye) BEDTIME 07/02/22 07/02/22 brinzolamide 1 %-brimonidine 0.2 % 1 drp ophthalmic (eye) BID 07/02/22 07/02/22 eye drops,suspension (Simbrinza) insulin lispro 100 unit/mL See Rx Instructions .Route .COMPLEX 07/02/22 07/04/22 subcutaneous solution (Humalog U-100 Insulin) latanoprost 0.005 % eye drops 1 drp ophthalmic (eye) BEDTIME 07/02/22 07/02/22 timolol maleate 0.5 % eye drops 1 drp ophthalmic (eye) BID 03/13/23 03/13/23 Previous Rx's Medication Instructions Recorded glucose 4 gram chewable tablet 4 gram PO Q15M PRN hypoglycemia 12/12/18 #30 tabs ondansetron 4 mg disintegrating 4 mg PO Q8H PRN nausea and 11/08/21 tablet vomiting #10 tabs acetaminophen 325 mg tablet 975 mg (3 x 325 mg) PO Q8H #30 tabs 11/18/21 naloxone 4 mg/actuation nasal 1 spray intranasal Q2M #2 ea 11/18/21 spray (Narcan) ondansetron 4 mg disintegrating 4 mg PO Q8H PRN nausea and 03/18/22 tablet vomiting #15 tabs torsemide 20 mg tablet 20 mg PO DAILY #30 tabs 07/05/22 azithromycin 250 mg tablet See Rx Instructions PO .COMPLEX #6 09/13/22 tabs hydrocodone 5 mg-acetaminophen 325 1 tab PO Q4-6H PRN pain #10 tabs 09/13/22 mg tablet promethazine 25 mg tablet 25 mg PO Q6H PRN nausea and 12/11/22 vomiting #30 tabs Allergies Allergy/AdvReac Type Severity Reaction Status Date / Time abdalla [ABDALLA] Allergy Intermediate Hives, Verified 03/30/23 10:52 pruritus iodine [IODINE] Allergy Intermediate rash, itchy Verified 03/30/23 10:52 morphine Allergy Intermediate Difficulty Verified 03/30/23 10:52 Breathing shellfish derived Allergy Intermediate rash Verified 03/30/23 10:52 [SHELLFISH DERIVED] adhesive [ADHESIVE] Allergy Unknown tape Verified 03/30/23 10:52 latex [LATEX] Allergy Unknown Hives Verified 03/30/23 10:52 Patient History Medical History DKA (diabetic ketoacidoses) History of pyelonephritis Irregular menstrual cycle Migraine headache Nephrolithiasis Noncompliance w/medication treatment due to intermit use of medication Type 1 diabetes mellitus Surgical History History of ureter stent Hx of cataract surgery Hx of local excision of skin lesion Status post cholecystectomy Status post laser lithotripsy of ureteral calculus [place] teeth extracted Family History Father In good health Mother Cardiac disease Social History details: Engaged household members: family Smoking Status: Never smoker alcohol intake: never Smoking Status: Never smoker alcohol intake frequency: holidays/special occasions only Substance Use Type: does not use Exam Initial Vital Signs Initial Vital Signs: Vital Signs Temperature 97.6 F 03/30/23 10:43 Pulse Rate 84 03/30/23 10:43 Respiratory Rate 16 03/30/23 10:43 Blood Pressure 189/116 H 03/30/23 10:43 Pulse Oximetry 99 03/30/23 10:43 Oxygen Delivery Method Room Air 03/30/23 10:43 GENERAL: Alert well-appearing 30 and in [no acute] distress. HEENT: Head atraumatic,EOMI, pupils reactive, face symmetric, [moist] mucous membranes CARDIOVASCULAR: Regular rate and rhythm without murmurs, rubs or gallops. RESPIRATORY: Breath sounds equal bilaterally, no wheezes rales or rhonchi. ABDOMEN: Soft, nontender. Normoactive bowel sounds all 4 quadrants. No guarding or rebound. EXTREMITIES: Normal range of motion, no clubbing or edema. 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 Course Orders Ordered: ED Orders 03/30/23 11:05 Complete Blood Count AUTO DIFF Stat Comprehensive Metabolic Panel Stat Lipase Stat Magnesium Stat PTT Partial Thromboplastin Lee Stat Prothrombin Time INR Stat Troponin & CK Cardiac Panel Stat 03/30/23 11:08 XR chest 1V Stat 03/30/23 11:17 EKG-12 Lead Stat 03/30/23 12:25 CT head/brain wo con Stat Discontinued Medications Diphenhydramine HCl (Diphenhydramine 50 Mg/Ml Vial) 25 mg IV NOW ONE Stop: 03/30/23 11:57 Last Admin: 03/30/23 12:07 Dose: 25 mg Documented By: CTS Hydromorphone HCl (Hydromorphone 0.5 Mg Inj) 0.5 mg IV NOW ONE Stop: 03/30/23 12:26 Last Admin: 03/30/23 12:37 Dose: 0.5 mg Documented By: BS Sodium Chloride (Normal Saline 0.9%) 1,000 mls @ 1,000 mls/hr IV BOLUS ONE Stop: 03/30/23 12:55 Last Infusion: 03/30/23 13:16 Dose: Infused Documented By: Admin: 03/30/23 12:07 Dose: 1,000 mls/hr Documented By: MYRNA Ketorolac Tromethamine (Ketorolac 30 Mg/Ml Vial) 15 mg IV NOW ONE Stop: 03/30/23 11:57 Last Admin: 03/30/23 12:07 Dose: 15 mg Documented By: MYRNA Prochlorperazine (Prochlorperazine 10 Mg/2 Ml Vial) 10 mg IV NOW ONE Stop: 03/30/23 11:57 Last Admin: 03/30/23 12:07 Dose: 10 mg Documented By: MYRNA Vital Signs Vital signs: Vital Signs - 8 hr 03/30/23 10:43 03/30/23 11:05 03/30/23 11:25 Temperature 97.6 F Pulse Rate 84 80 Respiratory Rate 16 13 Blood Pressure 189/116 H 203/117 H Pulse Oximetry 99 98 Oxygen Delivery Method Room Air 03/30/23 11:25 03/30/23 11:30 03/30/23 11:30 Temperature Pulse Rate 80 80 Respiratory Rate 10 L 14 Blood Pressure 199/120 H Pulse Oximetry 100 99 Oxygen Delivery Method 03/30/23 11:31 03/30/23 11:31 03/30/23 12:00 Temperature Pulse Rate 83 Respiratory Rate 13 Blood Pressure 219/115 H 226/108 H Pulse Oximetry 100 Oxygen Delivery Method 03/30/23 12:00 03/30/23 12:07 03/30/23 12:30 Temperature Pulse Rate 83 86 Respiratory Rate 10 L Blood Pressure 220/110 H 185/90 H Pulse Oximetry 100 Oxygen Delivery Method 03/30/23 12:30 03/30/23 13:00 03/30/23 13:30 Temperature Pulse Rate 83 81 80 Respiratory Rate 10 L 7 L 7 L Blood Pressure Pulse Oximetry 97 100 100 Oxygen Delivery Method 03/30/23 14:00 03/30/23 14:15 03/30/23 14:15 Temperature Pulse Rate 82 84 Respiratory Rate 9 L 10 L Blood Pressure 137/84 Pulse Oximetry 100 100 Oxygen Delivery Method 03/30/23 14:16 03/30/23 14:16 12/09/23 14:30 Temperature Pulse Rate 84 Respiratory Rate 10 L Blood Pressure 132/81 133/86 Pulse Oximetry 100 Oxygen Delivery Method 03/30/23 14:30 Temperature Pulse Rate 84 Respiratory Rate 12 Blood Pressure Pulse Oximetry 100 Oxygen Delivery Method Medical Decision Making Lab Data 03/30/23 11:05 03/30/23 11:05 Labs: Lab Results 03/30/23 Range/Units 11:05 WBC 8.2 (4.5-11.0) X10^3/uL RBC 4.51 (4.0-5.2) X10^6/uL Hgb 12.8 (12.0-16.0) g/dL Hct 38.5 (36-46) % MCV 85.3 (80-100) fL MCH 28.3 (26-34) PG MCHC 33.2 (30-36) % RDW 13.3 (11.6-14.8) % Plt Count 297 (150-400) X10^3/uL Neut % (Auto) 63.7 (50-75) % Lymph % (Auto) 26.4 (25-40) % [place] % (Auto) 6.4 (3-14) % Eos % (Auto) 2.3 (2-4) % Baso % (Auto) 1.2 (0-2) % Neut # (Auto) 5200 (1357-7800) /uL Lymph # (Auto) 2200 (1473-3059) /uL [place] # (Auto) 500 (0-900) /uL Eos # (Auto) 200 (0-450) /uL Baso # (Auto) 100 (0-100) /uL PT 10.3 (9.4-12.5) SECONDS INR 0.9 (0.9-1.3) APTT 34 (25.1-36.5) SECONDS Sodium 134 L (137-145) mmol/L Potassium 4.9 (3.4-5.1) mmol/L Chloride 105 (98-107) mmol/L Carbon Dioxide 28 (22-32) mmol/L BUN 34 H (7-17) mg/dL Creatinine 1.21 H (0.52-1.04) mg/dL Estimated GFR > 60 (>60) mL/min BUN/Creatinine Ratio 28.1 H (6-22) Glucose 159 H (70-100) mg/dL Calcium 8.3 L (8.4-10.2) mg/dL Magnesium 2.2 (1.6-2.3) mg/dL Total Bilirubin 0.5 (0.2-1.3) mg/dL AST 26 (14-36) IU/L ALT 30 (<35) IU/L Alkaline Phosphatase 147 H (38-126) U/L Total Creatine Kinase 196 H (30-135) U/L Troponin I < 0.012 (0.01-0.034) ng/mL Total Protein 5.9 L (6.3-8.2) g/dL Albumin 2.8 L (3.5-5.0) g/dL Globulin 3.1 (1.7-4.1) g/dL Albumin/Globulin Ratio 0.9 L (1.0-2.8) Lipase 44 (23-300) U/L Imaging Data CT scan - head: Radiologist's Impression: PROCEDURE: CT HEAD/BRAIN WO CON INDICATIONS: worst headache of life TECHNIQUE: Noncontrast 4.5 mm thick angled axial sections acquired from the foramen magnum to the vertex, with coronal and sagittal reformats. For radiation dose reduction, the following was used: automated exposure control, adjustment of mA and/or kV according to patient size. COMPARISON: [facility], CT, CT HEAD/BRAIN WO CON, 03/01/2022, 16:37. FINDINGS: Image quality: Excellent. CSF spaces: Basal cisterns are patent. No extra-axial fluid collections. Ventricles are normal in size and shape. Brain: No midline shift. No intracranial masses or hemorrhage. Toure-white matter interface is normal. Skull and face: Calvarium and visualized facial bones are intact, without suspicious lesions. Sinuses: Visualized sinuses and mastoids are clear. IMPRESSION: No acute intracranial pathology. Dictated by: José Garcia M.D. on 03/30/2023 at 11:57 Approved by: José Garcia M.D. on 03/30/2023 at 11:58 Chest x-ray: Radiologist's Impression: PROCEDURE: XR CHEST 1V INDICATIONS: chest pain TECHNIQUE: One view of the chest was acquired. COMPARISON: [facility], CR, XR CHEST 1V, 09/11/2022, 16:52. FINDINGS: Surgical changes and devices: None. Lungs and pleura: Lungs are clear. No pleural effusions or pneumothorax. Mediastinum: Mediastinal contours appear normal. Heart size is normal. Bones and chest wall: No suspicious bony lesions. Overlying soft tissues appear unremarkable. IMPRESSION: No acute cardiopulmonary abnormality is seen. Dictated by: José Garcia M.D. on 03/30/2023 at 10:39 ECG Data Interpretation: Sinus rhythm rate 83 VA interval 154 QRS 74 QTC [address] changes MDM Narrative Medical decision making narrative: Patient 33-year-old female history of insulin-dependent diabetes uncontrolled presents today with worse headache and hypertension. She is nauseous. No focal deficits. Blood work has been reviewed no leukocytosis anemia no electrolyte abnormality no evidence of DKA glucose is 159 Patient is afebrile but in severe pain with significantly elevated and persistent blood pressure. Head CT is done without intracranial hemorrhage. He is given migraine cocktail of Toradol Compazine and Benadryl which did not seem to help. She was given 1 dose of Dilaudid started sleeping blood pressure improved and woke up feeling much better. I suspect she had a migraine like headache causing her hypertension. She is on losartan mom takes her blood pressure regularly is not normally this high. CT ruled out for hemorrhage. She is afebrile no neck pain low suspicion for infection or meningitis picture. Recommend continuing to monitor blood pressure at home and follow-up with PCP as needed. Discharge Plan Departure Patient Disposition: Home Clinical Impression: Headache, migraine Instructions: DI for High Blood Pressure Activity Restrictions/Additional Instructions: *You have been diagnosed with migraine headache *What to do: At this time hope that you continue to feel better. Please continue to check blood pressure. I hope that you do not have frequent migraine headaches however if you do please talk with your primary care provider. If headache is not controlled at home then please return to ED. *Continue to take medications as directed *Follow up with your primary care provider in 2-3 days or call [phone] *Return to ER if you should have worsening headache persistent vomiting or any new, worsening or concerning symptoms Prescriptions: No Action glucose 4 gram tablet,chewable 4 gram PO Q15M PRN (Reason: hypoglycemia) Qty: 30 0RF Rx Instructions: until response Glucagon Emergency Kit (human) 1 mg recon soln 1 mg subcut DIRECTED ondansetron 4 mg tablet,disintegrating 4 mg PO Q8H PRN (Reason: nausea and vomiting) Qty: 10 0RF atropine 1 % drops 1 drp ophthalmic (eye) BEDTIME Patient Comments: INSTILL ONE DROP INTO BOTH EYES ONCE DAILY Rx Instructions: L eye only Simbrinza 1-0.2 % drops,suspension 1 drp ophthalmic (eye) BID Patient Comments: INSTILL ONE DROP INTO BOTH EYES TWO TIMES DAILY latanoprost 0.005 % drops 1 drp ophthalmic (eye) BEDTIME Patient Comments: INSTILL ONE DROP INTO BOTH EYES EVERY EVENING timolol maleate 0.5 % drops 1 drp ophthalmic (eye) BID Patient Comments: INSTILL ONE DROP INTO BOTH EYES TWO TIMES DAILY. insulin lispro [Humalog U-100 Insulin] 100 unit/mL Solution See Rx Instructions .ROUTE .COMPLEX Rx Instructions: pt unsure of dosage torsemide 20 mg tablet 20 mg PO DAILY Qty: 30 0RF azithromycin 250 mg tablet See Rx Instructions .ROUTE .COMPLEX Qty: 6 0RF Rx Instructions: For 250 mg dose pack: take 500 mg today (day 1), then 250 mg for 4 days (days 2-5) hydrocodone-acetaminophen 5-325 mg tablet 1 tab PO Q4-6H PRN (Reason: pain) Qty: 10 0RF diphenhydramine HCl 50 mg Capsule 50 mg PO BEDTIME PRN (Reason: Sleep) Rx Instructions: for itching and sleep pantoprazole 40 mg tablet,delayed release (DR/EC) 40 mg PO BEDTIME Patient Comments: TAKE ONE TABLET BY MOUTH ONE TIME DAILY insulin degludec [Tresiba FlexTouch U-200] 200 unit/mL (3 mL) insulin pen See Rx Instructions .ROUTE .COMPLEX Rx Instructions: 20u in the am 6units at bedtime sennosides [senna] 8.6 mg Tablet 8.6 mg PO PRN PRN (Reason: Constipation) acetaminophen 325 mg Tablet 975 mg PO Q8H Qty: 30 0RF naloxone [Narcan] 4 mg/actuation spray,non-aerosol 1 spray intranasal Q2M Qty: 2 0RF Rx Instructions: spray 1 dose into ONE nostril; alternate nostrils w each dose until help arrives ondansetron 4 mg tablet,disintegrating 4 mg PO Q8H PRN (Reason: nausea and vomiting) Qty: 15 0RF promethazine 25 mg tablet 25 mg PO Q6H PRN (Reason: nausea and vomiting) Qty: 30 0RF Referrals: Maria Ines Limon DO [Primary Care Provider] - Stand Alone Forms: Patient Portal/API
--- NOTE | 2023-03-30 12:25 | DI.CT.S_ITS ---
PROCEDURE: CT HEAD/BRAIN WO CON INDICATIONS: worst headache of life TECHNIQUE: Noncontrast 4.5 mm thick angled axial sections acquired from the foramen magnum to the vertex, with coronal and sagittal reformats. For radiation dose reduction, the following was used: automated exposure control, adjustment of mA and/or kV according to patient size. COMPARISON: [facility], CT, CT HEAD/BRAIN WO CON, 03/01/2022, 16:37. FINDINGS: Image quality: Excellent. CSF spaces: Basal cisterns are patent. No extra-axial fluid collections. Ventricles are normal in size and shape. Brain: No midline shift. No intracranial masses or hemorrhage. Toure-white matter interface is normal. Skull and face: Calvarium and visualized facial bones are intact, without suspicious lesions. Sinuses: Visualized sinuses and mastoids are clear. IMPRESSION: No acute intracranial pathology. Dictated by: José Garcia M.D. on 03/30/2023 at 11:57 Approved by: José Garcia M.D. on 03/30/2023 at 11:58
[2023-03-30] MEDS: HYDROMORPHONE 0.5 MG INJ IV (12:37)
== END 2023-03-30 15:00 | disposition home or self-care (01) ==
PROVIDERS: Emergency Provider Emergency Medicine; PCP Student in an Organized Health Care Education/Training Program
DX: G43.909 Migraine, unspecified, not intractable, without status migrainosus (principal); I10 Essential (primary) hypertension
CPT/HCPCS: 36415; 70450; 71045; 80053; 82550; 83690; 83735; 84484; 85025; 85610; 85730; 93005; 93010; 96374; 96375; 99284; J0780; J1170; J1200; J1885

== ENCOUNTER 2023-05-12 10:46 | Emergency (ER) | payer OTHER, MEDICAID, SELFPAY ==
[2022-07-02 16:19] VITALS: BMI 20.8
[2023-05-12] VITALS (17 sets, daily range): BP systolic 144–195; BP diastolic 85–102; PULSE 84–94; RESP 9–20; TEMP 37.2; O2SAT 85–100; BMI 23.6
--- NOTE | 2023-05-12 10:51 | DI.CT.S_ITS ---
PROCEDURE: CT ABDOMEN PELVIS W CON INDICATIONS: R ABDOMEN/FLANK PAIN TECHNIQUE: After the administration of intravenous contrast, axial sections acquired from the lung bases to the pubic symphysis. Coronal and sagittal reformats were performed. For radiation dose reduction, the following was used: automated exposure control, adjustment of mA and/or kV according to patient size. COMPARISON: [facility], CT, CT ABDOMEN PELVIS W CON, 12/11/2022, 14:07. FINDINGS: Lower thorax: The lung bases are clear. Heart size normal. No hiatal hernia. Liver: Normal in size and attenuation. No contour deformity present. Biliary system: Cholecystectomy. No intra or extrahepatic bile duct dilation. Pancreas: Unremarkable without mass or inflammation evident. Spleen: Normal in size and density. Adrenals: Normal morphology and density. Reproductive system: Unremarkable as visualized. 1.1 cm right ovarian cystic structure Urinary system: Normal renal size and attenuation. No renal calculi, hydronephrosis, or solid mass present. Urinary bladder unremarkable. Gastrointestinal system: Mild para cecal fat stranding inflammatory change. No evidence of obstruction Appendix: Not separately identified Peritoneal spaces: No mesenteric or retroperitoneal adenopathy. No free air. Small free fluid. Vasculature: The IVC, aorta and iliac vasculature are unremarkable. Abdominal wall: Abdominal wall intact without evidence of ventral or inguinal hernias. Musculoskeletal: Normal bone mineralization. No acute fractures. IMPRESSION: 1. Mild pericecal edema or inflammatory change. Separate appendix not identified. Consider short-term interval follow-up to reassess. 2. Small right adnexal cyst and small amount of free fluid in the pelvis could be further evaluated with ultrasound pelvis Approved by: Waylon Plaza M.D. on 05/12/2023 at 11:29
--- NOTE | 2023-05-12 10:53 | ED.ABDPAIN ---
HPI - Abdominal Pain General Chief Complaint: Abdominal Pain Stated Complaint: R side flank pain Time Seen by Provider: 05/12/23 10:47 History of Present Illness HPI narrative: 33-year-old female with history of poorly-controlled type 1 diabetes, congestive heart failure, legal blindness presents by EMS from home for 1 week of right upper quadrant abdominal and back pain. Pain is constant, sharp, does not radiate. Patient has remote history of kidney stones but this feels different. Related Data Home Medications Medication Instructions Recorded Confirmed glucagon (human recombinant) 1 mg 1 mg SUBCUT DIRECTED 02/16/19 07/02/22 solution for injection (Glucagon Emergency Kit) diphenhydramine HCl 50 mg capsule 50 mg PO BEDTIME PRN Sleep 09/29/20 07/02/22 insulin degludec 200 unit/mL (3 See Rx Instructions .Route .COMPLEX 11/13/21 07/02/22 mL) subcutaneous pen (Tresiba FlexTouch U-200 insulin) pantoprazole 40 mg tablet,delayed 40 mg PO BEDTIME 11/13/21 07/02/22 release sennosides 8.6 mg tablet (senna) 8.6 mg PO PRN PRN Constipation 11/13/21 07/02/22 atropine 1 % eye drops 1 drp ophthalmic (eye) BEDTIME 07/02/22 07/02/22 brinzolamide 1 %-brimonidine 0.2 % 1 drp ophthalmic (eye) BID 07/02/22 07/02/22 eye drops,suspension (Simbrinza) insulin lispro 100 unit/mL See Rx Instructions .Route .COMPLEX 07/02/22 07/04/22 subcutaneous solution (Humalog U-100 Insulin) latanoprost 0.005 % eye drops 1 drp ophthalmic (eye) BEDTIME 07/02/22 07/02/22 timolol maleate 0.5 % eye drops 1 drp ophthalmic (eye) BID 07/02/22 07/02/22 Previous Rx's Medication Instructions Recorded glucose 4 gram chewable tablet 4 gram PO Q15M PRN hypoglycemia 12/12/18 #30 tabs ondansetron 4 mg disintegrating 4 mg PO Q8H PRN nausea and 11/08/21 tablet vomiting #10 tabs acetaminophen 325 mg tablet 975 mg (3 x 325 mg) PO Q8H #30 tabs 11/18/21 naloxone 4 mg/actuation nasal 1 spray intranasal Q2M #2 ea 11/18/21 spray (Narcan) ondansetron 4 mg disintegrating 4 mg PO Q8H PRN nausea and 03/18/22 tablet vomiting #15 tabs torsemide 20 mg tablet 20 mg PO DAILY #30 tabs 07/05/22 azithromycin 250 mg tablet See Rx Instructions PO .COMPLEX #6 09/13/22 tabs hydrocodone 5 mg-acetaminophen 325 1 tab PO Q4-6H PRN pain #10 tabs 09/13/22 mg tablet promethazine 25 mg tablet 25 mg PO Q6H PRN nausea and 12/11/22 vomiting #30 tabs Allergies Allergy/AdvReac Type Severity Reaction Status Date / Time abdalla [ABDALLA] Allergy Intermediate Hives, Verified 03/30/23 10:52 pruritus iodine [IODINE] Allergy Intermediate rash, itchy Verified 03/30/23 10:52 morphine Allergy Intermediate Difficulty Verified 03/30/23 10:52 Breathing shellfish derived Allergy Intermediate rash Verified 03/30/23 10:52 [SHELLFISH DERIVED] adhesive [ADHESIVE] Allergy Unknown tape Verified 03/30/23 10:52 latex [LATEX] Allergy Unknown Hives Verified 03/30/23 10:52 Review of Systems Review of Systems Narrative: Negative except as noted above Patient History Medical History Noncompliance w/medication treatment due to intermit use of medication Irregular menstrual cycle Migraine headache History of pyelonephritis DKA (diabetic ketoacidoses) Nephrolithiasis Type 1 diabetes mellitus Surgical History Status post cholecystectomy Hx of cataract surgery Hx of local excision of skin lesion [place] teeth extracted Status post laser lithotripsy of ureteral calculus History of ureter stent Family History Father In good health Mother Cardiac disease Social History details: Engaged household members: family Smoking Status: Never smoker alcohol intake: never Smoking Status: Never smoker alcohol intake frequency: holidays/special occasions only Substance Use Type: does not use Exam Initial Vital Signs Initial Vital Signs: Vital Signs Temperature 99 F 05/12/23 10:52 Pulse Rate 87 05/12/23 10:52 Respiratory Rate 20 05/12/23 10:52 Blood Pressure 195/88 H 05/12/23 10:52 Pulse Oximetry 96 05/12/23 10:52 Oxygen Delivery Method Room Air 05/12/23 10:52 Const: Awake, alert, no acute distress, appears chronically unwell Cardiac: regular rate, regular rhythm RESP: unlabored, clear bilaterally, no wheezing GI: Atraumatic, soft, right upper quadrant tenderness to deep palpation, negative Gómez's sign Skin: Warm, Dry, intact, no rashes Neuro: AO x3, moves all extremities Psych: affect normal, mood normal, not suicidal, not homicidal Course Orders Ordered: ED Orders 05/12/23 10:51 CT abdomen pelvis w con Stat 05/12/23 11:00 CBC Auto Diff [Complete Blood Count AUTO DIFF] Stat CMP [Comprehensive Metabolic Panel] Stat Lipase Stat 05/12/23 11:10 Respiratory Panel (Film Array) Stat 05/12/23 13:48 Chest [XR chest 1V] Stat 05/12/23 14:30 UA Complete [Urinalysis and Microscopic] Stat Discontinued Medications Dexamethasone (Dexamethasone 10 Mg/Ml Vial) 10 mg IV NOW ONE Stop: 05/12/23 11:11 Last Admin: 05/12/23 11:14 Dose: 10 mg Documented By: MPO Diphenhydramine HCl (Diphenhydramine 50 Mg/Ml Vial) 25 mg IV NOW ONE Stop: 05/12/23 11:11 Last Admin: 05/12/23 11:14 Dose: 25 mg Documented By: MPO Furosemide (Furosemide 40 Mg/4 Ml Vial) 40 mg IV NOW ONE Stop: 05/12/23 15:18 Last Admin: 05/12/23 15:36 Dose: 40 mg Documented By: MPO Hydromorphone HCl (Hydromorphone 0.5 Mg Inj) 0.5 mg IV NOW ONE Stop: 05/12/23 15:18 Last Admin: 05/12/23 15:36 Dose: 0.5 mg Documented By: MPO Sodium Chloride (Normal Saline 0.9%) 1,000 mls @ 1,000 mls/hr IV BOLUS ONE Stop: 05/12/23 11:52 Last Infusion: 05/12/23 11:46 Dose: Infused Documented By: Admin: 05/12/23 11:08 Dose: 1,000 mls/hr Documented By: QAMAR Acetaminophen (Ofirmev) 1,000 mg in 100 mls @ 400 mls/hr IV NOW ONE Stop: 05/12/23 12:30 Last Infusion: 05/12/23 13:01 Dose: Infused Documented By: Admin: 05/12/23 12:28 Dose: 400 mls/hr Documented By: MARY Vital Signs Vital signs: Vital Signs - 8 hr 05/12/23 10:52 05/12/23 10:53 05/12/23 11:00 Temperature 99 F Pulse Rate 87 86 86 Respiratory Rate 20 10 L Blood Pressure 195/88 H Pulse Oximetry 96 95 97 Oxygen Delivery Method Room Air Oxygen Flow Rate 05/12/23 11:30 05/12/23 12:00 05/12/23 12:05 Temperature Pulse Rate 90 94 H 89 Respiratory Rate 16 12 11 L Blood Pressure Pulse Oximetry 93 96 93 Oxygen Delivery Method Oxygen Flow Rate 05/12/23 12:05 05/12/23 12:30 05/12/23 13:00 Temperature Pulse Rate 88 86 Respiratory Rate 14 Blood Pressure 185/102 H Pulse Oximetry 95 Oxygen Delivery Method Oxygen Flow Rate 05/12/23 13:30 05/12/23 13:48 05/12/23 13:53 Temperature Pulse Rate 84 Respiratory Rate 9 L Blood Pressure Pulse Oximetry 92 85 L 98 Oxygen Delivery Method Room Air Nasal Cannula Oxygen Flow Rate 2 05/12/23 14:00 05/12/23 14:28 05/12/23 14:28 Temperature Pulse Rate 84 87 Respiratory Rate 15 14 Blood Pressure 144/85 H Pulse Oximetry 99 100 99 Oxygen Delivery Method Nasal Cannula Oxygen Flow Rate 2 05/12/23 14:30 05/12/23 15:00 05/12/23 15:30 Temperature Pulse Rate 85 84 86 Respiratory Rate 17 15 Blood Pressure Pulse Oximetry 100 97 96 Oxygen Delivery Method Oxygen Flow Rate 05/12/23 15:53 05/12/23 15:53 Temperature Pulse Rate 86 Respiratory Rate 14 Blood Pressure 161/91 H Pulse Oximetry 97 Oxygen Delivery Method Oxygen Flow Rate MDM - Abdominal Pain Differential Diagnosis Differential diagnosis: Likely abdominal pain, calculus of kidney and constipation Lab Data 05/12/23 11:00 05/12/23 11:00 Labs: Lab Results 05/12/23 05/12/23 05/12/23 Range/Units 11:00 11:10 14:30 WBC 9.9 (4.5-11.0) X10^3/uL RBC 4.46 (4.0-5.2) X10^6/uL Hgb 12.6 (12.0-16.0) g/dL Hct 38.1 (36-46) % MCV 85.3 (80-100) fL MCH 28.2 (26-34) PG MCHC 33.0 (30-36) % RDW 13.4 (11.6-14.8) % Plt Count 360 (150-400) X10^3/uL Neut % (Auto) 65.5 (50-75) % Lymph % (Auto) 23.1 L (25-40) % [place] % (Auto) 8.4 (3-14) % Eos % (Auto) 2.1 (2-4) % Baso % (Auto) 0.9 (0-2) % Neut # (Auto) 6500 (1590-7875) /uL Lymph # (Auto) 2300 (5406-9782) /uL Oliver # (Auto) 800 (0-900) /uL Eos # (Auto) 200 (0-450) /uL Baso # (Auto) 100 (0-100) /uL Sodium 136 L (137-145) mmol/L Potassium 4.9 (3.4-5.1) mmol/L Chloride 108 H (98-107) mmol/L Carbon Dioxide 25 (22-32) mmol/L BUN 25 H (7-17) mg/dL Creatinine 1.44 H (0.52-1.04) mg/dL Estimated GFR 50 L (>60) mL/min BUN/Creatinine Ratio 17.4 (6-22) Glucose 89 (70-100) mg/dL Calcium 8.8 (8.4-10.2) mg/dL Total Bilirubin 0.4 (0.2-1.3) mg/dL AST 32 (14-36) IU/L ALT 35 H (<35) IU/L Alkaline Phosphatase 147 H (38-126) U/L Total Protein 6.3 (6.3-8.2) g/dL Albumin 2.9 L (3.5-5.0) g/dL Globulin 3.4 (1.7-4.1) g/dL Albumin/Globulin Ratio 0.9 L (1.0-2.8) Lipase 43 (23-300) U/L Urine Color Yellow Urine Appearance Clear Urine pH 6.0 (4.5-8.0) Ur Specific [place] 1.020 (1.000-1.035) Urine Protein 3+ H (Negative) Urine Glucose (UA) Trace H (Negative) g/dL Urine Ketones Negative (NEGATIVE) Urine Occult Blood 2+ H (Negative) Urine Nitrate Negative (Negative) Urine Bilirubin Negative (NEGATIVE) Urine Urobilinogen 0.2 (0.2) E.U./dL Ur Leukocyte Esterase Negative (NEGATIVE) Urine RBC 5-10/hpf H (0-5/HPF) Urine WBC 1-5/hpf (0-5/HPF) Ur Squamous Epith Cells 1-5 /hpf (0-5/HPF) Urine Bacteria Moderate (10-30) H (None) Ur Culture Indicated? Cult not indicated Vol Urine Centrifuged 10ml (spun) Chlamy pneumoniae PCR Not detected (Not Detect) Adenovirus (PCR) Not detected (Not Detect) B.parapertussis DNA PCR Not detected (Not Detecte) Coronavirus OC43 (PCR) Not detected (Not Detect) Coronavirus HKU1 (PCR) Not detected (Not Detect) Coronavirus 229E (PCR) Not detected (Not Detect) SARS-CoV-2 (PCR) Not detected (Not Detecte) Coronavirus NL63 (PCR) Not detected (Not Detect) Human Metapneumovir PCR Not detected (Not Detect) Influenza Type A (PCR) Not detected (Not Detect) Influenza Type B (PCR) Not detected (Not Detect) M. pneumoniae (PCR) Not detected (Not Detect) Parainfluenza 1 (PCR) Not detected (Not Detect) Parainfluenza 2 (PCR) Not detected (Not Detect) Parainfluenza 3 (PCR) Not detected (Not Detect) Parainfluenza 4 (PCR) Not detected (Not Detect) RSV (PCR) Not detected (Not Detect) Entero/Rhino (PCR) Not detected (Not Detect) Point of care testing: Point of Care Testing Test Results Negative Glucose POC 134 MDM Narrative Medical decision making narrative: One week of right-sided abdominal pain. Abdomen is soft, there is [id number] tenderness to deep palpation, negative Gómez's sign, patient already has a cholecystectomy. We will order labs and imaging. Laboratory work is reviewed, no leukocytosis, no left shift. Patient's creatinine is 1.44, GFR 50, this is slightly worse than patient's last visit in 03/30/2023, but not markedly so. Mild elevation in glucose, normal CO2. CT of the abdomen and pelvis is reviewed, there is possibly mild pericecal inflammation, however no appendix is seen. Given that symptoms have been ongoing for 1 month, pain is in the right upper quadrant and right lower quadrant and otherwise benign physical exam this is likely nonspecific. Patient reassessed, is requesting additional pain medications. Patient's pulse ox reading in the 80s with good waveform on her fingers, however when the pulse ox was applied to her earlobe saturations returned to normal. Chest x-ray negative for acute findings. Uncertain etiology of patient's abdominal pain. I recommended continued conservative management and repeat evaluation in 24-48 hours if no improvement. 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 Mother asked about swelling in the lower extremities. This was not initially told to me by the patient when she presented for evaluation. She does seem to have mild swelling of her bilateral lower extremities and ankles, nonpitting in nature. We will order IV Lasix, recommended continued Lasix at home, which the patient already has, and monitoring of fluid intake. Discharge Plan Departure Patient Disposition: Home Clinical Impression: Abdominal pain Instructions: DI for Abdominal Pain-Adult Activity Restrictions/Additional Instructions: Follow up with your primary care physician. Return in 24-48 hours if you continue to have abdominal pain or if your pain worsens. Prescriptions: No Action glucose 4 gram tablet,chewable 4 gram PO Q15M PRN (Reason: hypoglycemia) Qty: 30 0RF Rx Instructions: until response Glucagon Emergency Kit (human) 1 mg recon soln 1 mg subcut DIRECTED ondansetron 4 mg tablet,disintegrating 4 mg PO Q8H PRN (Reason: nausea and vomiting) Qty: 10 0RF atropine 1 % drops 1 drp ophthalmic (eye) BEDTIME Patient Comments: INSTILL ONE DROP INTO BOTH EYES ONCE DAILY Rx Instructions: L eye only Simbrinza 1-0.2 % drops,suspension 1 drp ophthalmic (eye) BID Patient Comments: INSTILL ONE DROP INTO BOTH EYES TWO TIMES DAILY latanoprost 0.005 % drops 1 drp ophthalmic (eye) BEDTIME Patient Comments: INSTILL ONE DROP INTO BOTH EYES EVERY EVENING timolol maleate 0.5 % drops 1 drp ophthalmic (eye) BID Patient Comments: INSTILL ONE DROP INTO BOTH EYES TWO TIMES DAILY. insulin lispro [Humalog U-100 Insulin] 100 unit/mL Solution See Rx Instructions .ROUTE .COMPLEX Rx Instructions: pt unsure of dosage torsemide 20 mg tablet 20 mg PO DAILY Qty: 30 0RF azithromycin 250 mg tablet See Rx Instructions .ROUTE .COMPLEX Qty: 6 0RF Rx Instructions: For 250 mg dose pack: take 500 mg today (day 1), then 250 mg for 4 days (days 2-5) hydrocodone-acetaminophen 5-325 mg tablet 1 tab PO Q4-6H PRN (Reason: pain) Qty: 10 0RF diphenhydramine HCl 50 mg Capsule 50 mg PO BEDTIME PRN (Reason: Sleep) Rx Instructions: for itching and sleep pantoprazole 40 mg tablet,delayed release (DR/EC) 40 mg PO BEDTIME Patient Comments: TAKE ONE TABLET BY MOUTH ONE TIME DAILY insulin degludec [Tresiba FlexTouch U-200] 200 unit/mL (3 mL) insulin pen See Rx Instructions .ROUTE .COMPLEX Rx Instructions: 20u in the am 6units at bedtime sennosides [senna] 8.6 mg Tablet 8.6 mg PO PRN PRN (Reason: Constipation) acetaminophen 325 mg Tablet 975 mg PO Q8H Qty: 30 0RF naloxone [Narcan] 4 mg/actuation spray,non-aerosol 1 spray intranasal Q2M Qty: 2 0RF Rx Instructions: spray 1 dose into ONE nostril; alternate nostrils w each dose until help arrives ondansetron 4 mg tablet,disintegrating 4 mg PO Q8H PRN (Reason: nausea and vomiting) Qty: 15 0RF promethazine 25 mg tablet 25 mg PO Q6H PRN (Reason: nausea and vomiting) Qty: 30 0RF Referrals: Maria Ines Limon DO [Primary Care Provider] - Stand Alone Forms: Patient Portal/API
[2023-05-12] MEDS: SODIUM CHLORIDE 0.9% 1,000 ML 1000 ML IV (11:08)
[2023-05-12 11:14] LABS: Add Manual Diff / Slide Review NO; Basophils Absolute Auto 100 /uL (0-100); Basophils Percent Auto 0.9 % (0-2); Eosinophils Absolute Auto 200 /uL (0-450); Eosinophils Percent Auto 2.1 % (2-4); Hematocrit 38.1 % (36-46); Hemoglobin 12.6 g/dL (12.0-16.0); Lymphocytes Absolute Auto 2300 /uL (1100-4500); Lymphocytes Percent Auto 23.1 % (25-40); Mean Corpuscular Hemoglobin 28.2 PG (26-34); Mean Corpuscular Volume 85.3 fL (80-100); Monocytes Absolute Auto 800 /uL (0-900); Monocytes Percent Auto 8.4 % (3-14); Neutrophils Absolute Auto 6500 /uL (1500-7000); Neutrophils Percent Auto 65.5 % (50-75); Platelet Count 360 X10^3/uL (150-400); Red Blood Cell Count 4.46 X10^6/uL (4.0-5.2); Red Cell Distribution Width 13.4 % (11.6-14.8); White Blood Cell Count 9.9 X10^3/uL (4.5-11.0)
[2023-05-12] MEDS: DEXAMETHASONE 10 MG/ML VIAL IV (11:14)
[2023-05-12] MEDS: diphenhydrAMINE 50 MG/ML VIAL 25 MG IV (11:14)
[2023-05-12 11:31] LABS: Alanine Aminotransferase 35 IU/L (<35); Albumin 2.9 g/dL (3.5-5.0); Albumin Globulin Ratio 0.9 (1.0-2.8); Alkaline Phosphatase 147 U/L (38-126); Aspartate Aminotransferase 32 IU/L (14-36); BUN Creatinine Ratio 17.4 (6-22); Bilirubin Total 0.4 mg/dL (0.2-1.3); Blood Urea Nitrogen 25 mg/dL (7-17); Calcium 8.8 mg/dL (8.4-10.2); Carbon Dioxide 25 mmol/L (22-32); Chloride 108 mmol/L (98-107); Estimated Glomerular Filt Rate 50 mL/min (>60); Globulin 3.4 g/dL (1.7-4.1); Glucose 89 mg/dL (70-100); HEMOLYSIS 16 (0-50); Potassium 4.9 mmol/L (3.4-5.1); Sodium 136 mmol/L (137-145); Total Protein 6.3 g/dL (6.3-8.2)
[2023-05-12 11:37] LABS: Lipase 43 U/L (23-300)
[2023-05-12 12:03] LABS: Adenovirus Not Detected (Not Detect); B. parapertussis Not Detected (Not Detecte); Bordetella pertussis Not Detected (Not Detect); Chlamydophila pneumoniae Not Detected (Not Detect); Coronavirus 229E Not Detected (Not Detect); Coronavirus HKU1 Not Detected (Not Detect); Coronavirus NL 63 Not Detected (Not Detect); Coronavirus OC43 Not Detected (Not Detect); Human Metapneumovirus Not Detected (Not Detect); Human Rhinovirus/Enterovirus Not Detected (Not Detect); Influenza A Not Detected (Not Detect); Influenza B Not Detected (Not Detect); Mycoplasma pneumoniae Not Detected (Not Detect); Parainfluenza Virus 1 Not Detected (Not Detect); Parainfluenza Virus 2 Not Detected (Not Detect); Parainfluenza Virus 3 Not Detected (Not Detect); Parainfluenza Virus 4 Not Detected (Not Detect); Respiratory Syncytial Virus Not Detected (Not Detect); SARS- CoV-2 Not Detected (Not Detecte)
[2023-05-12] MEDS: ACETAMINOPHEN IV 1,000 MG/100 ML VIAL 400 MG IV (12:28)
--- NOTE | 2023-05-12 13:48 | DI.RAD.S_ITS ---
PROCEDURE: XR CHEST 1V INDICATIONS: Low O2, hx CHF TECHNIQUE: One view of the chest was acquired. COMPARISON: [facility], [place], XR CHEST 1V, 03/30/2023, 11:28. FINDINGS: Surgical changes and devices: None. Lungs and pleura: Minimal right basilar atelectasis and or infiltrate. No pleural effusions or pneumothorax. Mediastinum: Mediastinal contours appear normal. Heart size is normal. Bones and chest wall: No suspicious bony lesions. Overlying soft tissues appear unremarkable. IMPRESSION: Minimal right basilar atelectasis and or infiltrate Approved by: Waylon Plaza M.D. on 05/12/2023 at 15:18
--- NOTE | 2023-05-12 14:34 | PC.NURSE ---
Pt up to [facility] with 1 person assist. Pt very weak and uses walker/wheelchair at home. 300cc of cloudy yellow urine out. Pt states that she is experiencing 8/10 pain that she describes as sharp in her flank. Dr Stuart notified. No new orders at this time.
[2023-05-12 14:35] LABS: Urine Volume 10mL (spun)
[2023-05-12 14:36] LABS: Appearance Urine UA CLEAR; Bilirubin Urine UA NEGATIVE (NEGATIVE); Color Urine UA YELLOW; Glucose Urine UA TRACE g/dL (Negative); Ketones Urine UA NEGATIVE (NEGATIVE); Leukocyte Esterase Urine UA NEGATIVE (NEGATIVE); Nitrite Urine UA NEGATIVE (Negative); Occult Blood Urine UA 2+ (Negative); Protein Urine UA 3+ (Negative); Urobilinogen Urine UA 0.2 E.U./dL (0.2)
[2023-05-12 14:45] LABS: RBC Urine 5-10/HPF (0-5/HPF)
[2023-05-12 14:46] LABS: Bacteria Urine Moderate (10-30); Squamous Epithelial Cell Urine 1-5 /HPF (0-5/HPF); WBC Urine 1-5/HPF (0-5/HPF)
[2023-05-12 14:50] LABS: Culture Indicated Urine Cult Not Indicated
[2023-05-12] MEDS: HYDROMORPHONE 0.5 MG INJ IV (15:36)
[2023-05-12] MEDS: FUROSEMIDE 40 MG/4 ML VIAL IV (15:36)
== END 2023-05-12 16:06 | disposition home or self-care (01) ==
PROVIDERS: Emergency Provider Emergency Medicine; PCP Student in an Organized Health Care Education/Training Program
DX: R10.11 Right upper quadrant pain (principal); Z20.822 Contact with and (suspected) exposure to COVID-19
CPT/HCPCS: 36415; 51798; 71045; 74177; 80053; 81001; 81025; 82962; 83690; 85025; 87633; 96361; 96365; 96375; 99284; 99285; J0136; J1100; J1170; J1200; J1940; Q9967

== ENCOUNTER 2023-05-27 08:55 | Emergency (ER) | payer OTHER, MEDICAID, SELFPAY ==
[2022-07-02 16:19] VITALS: BMI 20.8
[2023-05-27] VITALS (10 sets, daily range): BP systolic 186–216; BP diastolic 100–111; PULSE 81–89; RESP 18; TEMP 37.1; O2SAT 95–98; BMI 23.4
[2023-05-27] MEDS: diphenhydrAMINE 50 MG/ML VIAL IV (09:25)
[2023-05-27] MEDS: FAMOTIDINE 20 MG/2 ML VIAL IV (09:25)
[2023-05-27] MEDS: methylPREDNISolone 125 MG/2 ML VIAL IV (09:25)
[2023-05-27] MEDS: SODIUM CHLORIDE 0.9% 1,000 ML 1000 ML IV (09:25)
[2023-05-27 09:26] LABS: Add Manual Diff / Slide Review NO; Basophils Absolute Auto 100 /uL (0-100); Basophils Percent Auto 1.4 % (0-2); Eosinophils Absolute Auto 200 /uL (0-450); Eosinophils Percent Auto 2.5 % (2-4); Hematocrit 38.7 % (36-46); Hemoglobin 12.7 g/dL (12.0-16.0); Lymphocytes Absolute Auto 2700 /uL (1100-4500); Lymphocytes Percent Auto 31.2 % (25-40); Mean Corpuscular HGB Conc 32.7 % (30-36); Mean Corpuscular Hemoglobin 27.9 PG (26-34); Mean Corpuscular Volume 85.4 fL (80-100); Monocytes Absolute Auto 600 /uL (0-900); Neutrophils Absolute Auto 5000 /uL (1500-7000); Neutrophils Percent Auto 57.9 % (50-75); Platelet Count 383 X10^3/uL (150-400); Red Blood Cell Count 4.54 X10^6/uL (4.0-5.2); Red Cell Distribution Width 13.4 % (11.6-14.8); White Blood Cell Count 8.6 X10^3/uL (4.5-11.0)
--- NOTE | 2023-05-27 09:30 | ED.ALLEREA ---
HPI - Allergic Reaction General Chief complaint: Allergic Reaction Stated complaint: lips swelling/chest feels heavy/ hoarse throat Time Seen by Provider: 05/27/23 09:20 Source: patient and family Mode of arrival: Wheelchair Limitations: no limitations History of Present Illness HPI narrative: 33-year-old female with history of insulin-dependent diabetes, CHF recurrent episodes of upper eyelid swelling. Patient presents with recurrent episode she thinks it might be allergic reaction but has not found a source. States it seems to be her upper eyelids it is worse than last time. She and her mom notes she has had prior surgeries to the eyes seemed to start after that but that has been some time ago. She has had some mild swelling in her ankles but not significantly into her legs. She denies any fevers, she has had a mild cough recently states it is related to her blood pressure medication. She has not on any similar number or Arb according to the patient. Patient states no fevers or chills. She feels a little tight in her chest. No pain. No nausea or vomiting. No recent diarrhea or constipation, no urinary symptoms. She denies rash or hives. She does have allergies to seafood and Monica's but states that is usually itching and rash. She is also has allergies to morphine, iodine, latex and adhesive but states she has not been in the hospital for a couple weeks. Has not had any new medication changes or exposures that she is aware. This has happened in the past. Related Data Home Medications Medication Instructions Recorded Confirmed glucagon (human recombinant) 1 mg 1 mg SUBCUT DIRECTED 02/16/19 07/02/22 solution for injection (Glucagon Emergency Kit) diphenhydramine HCl 50 mg capsule 50 mg PO BEDTIME PRN Sleep 09/29/20 07/02/22 insulin degludec 200 unit/mL (3 See Rx Instructions .Route .COMPLEX 11/13/21 07/02/22 mL) subcutaneous pen (Tresiba FlexTouch U-200 insulin) pantoprazole 40 mg tablet,delayed 40 mg PO BEDTIME 11/13/21 07/02/22 release sennosides 8.6 mg tablet (senna) 8.6 mg PO PRN PRN Constipation 11/13/21 07/02/22 atropine 1 % eye drops 1 drp ophthalmic (eye) BEDTIME 07/02/22 07/02/22 brinzolamide 1 %-brimonidine 0.2 % 1 drp ophthalmic (eye) BID 07/02/22 07/02/22 eye drops,suspension (Simbrinza) insulin lispro 100 unit/mL See Rx Instructions .Route .COMPLEX 07/02/22 07/04/22 subcutaneous solution (Humalog U-100 Insulin) latanoprost 0.005 % eye drops 1 drp ophthalmic (eye) BEDTIME 07/02/22 07/02/22 timolol maleate 0.5 % eye drops 1 drp ophthalmic (eye) BID 07/02/22 07/02/22 Previous Rx's Medication Instructions Recorded glucose 4 gram chewable tablet 4 gram PO Q15M PRN hypoglycemia 12/12/18 #30 tabs ondansetron 4 mg disintegrating 4 mg PO Q8H PRN nausea and 11/08/21 tablet vomiting #10 tabs acetaminophen 325 mg tablet 975 mg (3 x 325 mg) PO Q8H #30 tabs 11/18/21 naloxone 4 mg/actuation nasal 1 spray intranasal Q2M #2 ea 11/18/21 spray (Narcan) ondansetron 4 mg disintegrating 4 mg PO Q8H PRN nausea and 03/18/22 tablet vomiting #15 tabs torsemide 20 mg tablet 20 mg PO DAILY #30 tabs 07/05/22 azithromycin 250 mg tablet See Rx Instructions PO .COMPLEX #6 09/13/22 tabs hydrocodone 5 mg-acetaminophen 325 1 tab PO Q4-6H PRN pain #10 tabs 09/13/22 mg tablet promethazine 25 mg tablet 25 mg PO Q6H PRN nausea and 12/11/22 vomiting #30 tabs famotidine 20 mg tablet (Pepcid) 20 mg PO BID 5 days #10 tabs 05/27/23 prednisone 20 mg tablet 20 mg PO DAILY #5 tabs 05/27/23 Allergies Allergy/AdvReac Type Severity Reaction Status Date / Time arredondo [ARREDONDO] Allergy Intermediate Hives, Verified 03/30/23 10:52 pruritus iodine [IODINE] Allergy Intermediate rash, itchy Verified 03/30/23 10:52 morphine Allergy Intermediate Difficulty Verified 03/30/23 10:52 Breathing shellfish derived Allergy Intermediate rash Verified 03/30/23 10:52 [SHELLFISH DERIVED] adhesive [ADHESIVE] Allergy Unknown tape Verified 03/30/23 10:52 latex [LATEX] Allergy Unknown Hives Verified 03/30/23 10:52 Review of Systems Review of Systems ROS Unobtainable: All systems reviewed & are unremarkable except as noted in HPI and below Patient History Medical History Noncompliance w/medication treatment due to intermit use of medication Irregular menstrual cycle Migraine headache History of pyelonephritis DKA (diabetic ketoacidoses) Nephrolithiasis Type 1 diabetes mellitus Surgical History Status post cholecystectomy Hx of cataract surgery Hx of local excision of skin lesion [place] teeth extracted Status post laser lithotripsy of ureteral calculus History of ureter stent Family History Father In good health Mother Cardiac disease Social History details: Engaged household members: family Smoking Status: Never smoker alcohol intake: never Smoking Status: Never smoker alcohol intake frequency: holidays/special occasions only Substance Use Type: does not use Exam Narrative Exam Narrative: GEN: well nourished, well appearing female, alert and oriented x 3, patient appears to be in mild distress. HEENT: Atraumatic, pupils are equal round reactive to light, extraocular movements are intact, patient significant swelling bilateral upper eyelids, no swelling appreciated of the lips, tongue or oropharynx. Nares are clear, TMs are clear with no fluid, there is no conjunctival pallor. Throat is clear without any exudates, erythema, tonsillar enlargement or uvular deviation, normal speech. HEART: Regular rate and rhythm without murmur, clicks, rubs. Pulses are equal in upper and lower extremities, patient has some mild pedal edema bilaterally. LUNGS:Lungs clear to auscultation, no wheezes, rales, crackles, chest moves symmetrically ABD:bowel sounds normal, soft, non-tender, no guarding, rebound, rigidity, no masses noted, no hepatosplenomegaly :No CVA tenderness MSCL: Non-tender, no muscle atrophy, muscles strength 5/5 upper and lower extremities, full range of motion, normal gait NEURO:CN 2-12 intact, sensation normal SKIN: No rash, erythema, no skin changes noted. Initial Vital Signs Initial Vital Signs: Vital Signs Pulse Rate 89 05/27/23 09:04 Blood Pressure 216/106 H 05/27/23 09:04 Pulse Oximetry 98 05/27/23 09:04 Course Orders Ordered: Discontinued Medications Diphenhydramine HCl (Diphenhydramine 50 Mg/Ml Vial) 50 mg IV NOW ONE Stop: 05/27/23 09:21 Last Admin: 05/27/23 09:25 Dose: 50 mg Documented By: RB Famotidine (Famotidine 20 Mg/2 Ml Vial) 20 mg IV NOW BLAISE Last Admin: 05/27/23 09:25 Dose: 20 mg Documented By: RB Sodium Chloride (Normal Saline 0.9%) 1,000 mls @ 1,000 mls/hr IV BOLUS PRN PRN Reason: Fluid replacement Last Infusion: 05/27/23 10:28 Dose: Infused Documented By: Admin: 05/27/23 09:25 Dose: 1,000 mls/hr Documented By: RB Methylprednisolone (Methylprednisolone 125 Mg/2 Ml Vial) 125 mg IV NOW ONE Stop: 05/27/23 09:21 Last Admin: 05/27/23 09:25 Dose: 125 mg Documented By: RB Vital Signs Vital signs: Vital Signs - 8 hr 05/27/23 09:04 05/27/23 09:04 05/27/23 09:11 Temperature 98.7 F Pulse Rate 89 81 Respiratory Rate 18 Blood Pressure 216/106 H 216/106 H Pulse Oximetry 98 97 Oxygen Delivery Method Room Air 05/27/23 09:30 05/27/23 09:30 Temperature Pulse Rate 84 Respiratory Rate Blood Pressure 203/101 H Pulse Oximetry 97 Oxygen Delivery Method MDM - Allergic Reaction Lab Data 05/27/23 09:10 05/27/23 09:10 Labs: Lab Results 05/27/23 Range/Units 09:10 WBC 8.6 (4.5-11.0) X10^3/uL RBC 4.54 (4.0-5.2) X10^6/uL Hgb 12.7 (12.0-16.0) g/dL Hct 38.7 (36-46) % MCV 85.4 (80-100) fL MCH 27.9 (26-34) PG MCHC 32.7 (30-36) % RDW 13.4 (11.6-14.8) % Plt Count 383 (150-400) X10^3/uL Neut % (Auto) 57.9 (50-75) % Lymph % (Auto) 31.2 (25-40) % [place] % (Auto) 7.0 (3-14) % Eos % (Auto) 2.5 (2-4) % Baso % (Auto) 1.4 (0-2) % Neut # (Auto) 5000 (9012-7638) /uL Lymph # (Auto) 2700 (2652-7924) /uL [place] # (Auto) 600 (0-900) /uL Eos # (Auto) 200 (0-450) /uL Baso # (Auto) 100 (0-100) /uL Sodium 136 L (137-145) mmol/L Potassium 4.3 (3.4-5.1) mmol/L Chloride 107 (98-107) mmol/L Carbon Dioxide 28 (22-32) mmol/L BUN 19 H (7-17) mg/dL Creatinine 1.35 H (0.52-1.04) mg/dL Estimated GFR 54 L (>60) mL/min BUN/Creatinine Ratio 14.1 (6-22) Glucose 136 H (70-100) mg/dL Calcium 8.6 (8.4-10.2) mg/dL Total Bilirubin 0.4 (0.2-1.3) mg/dL AST 30 (14-36) IU/L ALT 33 (<35) IU/L Alkaline Phosphatase 144 H (38-126) U/L Total Protein 6.2 L (6.3-8.2) g/dL Albumin 2.9 L (3.5-5.0) g/dL Globulin 3.3 (1.7-4.1) g/dL Albumin/Globulin Ratio 0.9 L (1.0-2.8) Lipase 45 (23-300) U/L Ketones 0.05 (<0.27) mmol/L ECG Data Attestation: I personally reviewed and interpreted this ECG as follows: Interpretation: Sinus rhythm rate 86 DC 142 QRS is 68 QTC [address] No acute [address] elevation depression noted. MDM Narrative Medical decision making narrative: 33-year-old female with bilateral swelling of the eyes, patient feels tight in her chest and denies any oropharyngeal involvement. She states symptoms started yesterday, feel worse today the chest tightness was not present yesterday. Unclear if this is true allergic reaction versus possible angioedema. Patient has had similar symptoms in the past but not quite as significant. Mom notes glucose was 70 this morning they held off on her insulin. She is hypertensive here in the department. Labs are overall unremarkable. Patient continues to be hypertensive but has bounced around in the past. She has not on any antihypertensive currently but states she is bottomed out in the past according to her and her family. She does not have any swelling elsewhere making my suspicion for CHF much lower. Seems to be more like angioedema or possibly allergic reaction. She states she has a little bit of improvement today after medications and she feels comfortable to return home. Discussed return precautions all questions answered Discharge Plan Departure Patient Disposition: Home Clinical Impression: Angioedema Instructions: DI for Angioedema Activity Restrictions/Additional Instructions: Follow-up with your finance vice president and/or tacker elastic band. Please follow-up with your physician in the next day or so to have your blood pressure rechecked to make sure that it has normalized. Continue your home medications as prescribed. Take steroids once daily until completed. Take Pepcid/Famotidine 1 tablet twice daily x5 days. You may take Benadryl 1-2 tablets every 6 hours as needed for symptoms. Prescription sent to [facility] in [place]. Please return for worsening symptoms, severe headaches, worsening swelling of your eyes, lips, face, swelling of your hands or legs, new or worsening chest pain, shortness of breath, persistent vomiting, lightheadedness or passing out or other new or concerning changes. Prescriptions: New prednisone 20 mg tablet 20 mg PO DAILY Qty: 5 0RF famotidine [Pepcid] 20 mg tablet 20 mg PO BID 5 Days Qty: 10 0RF No Action glucose 4 gram tablet,chewable 4 gram PO Q15M PRN (Reason: hypoglycemia) Qty: 30 0RF Rx Instructions: until response Glucagon Emergency Kit (human) 1 mg recon soln 1 mg subcut DIRECTED ondansetron 4 mg tablet,disintegrating 4 mg PO Q8H PRN (Reason: nausea and vomiting) Qty: 10 0RF atropine 1 % drops 1 drp ophthalmic (eye) BEDTIME Patient Comments: INSTILL ONE DROP INTO BOTH EYES ONCE DAILY Rx Instructions: L eye only Simbrinza 1-0.2 % drops,suspension 1 drp ophthalmic (eye) BID Patient Comments: INSTILL ONE DROP INTO BOTH EYES TWO TIMES DAILY latanoprost 0.005 % drops 1 drp ophthalmic (eye) BEDTIME Patient Comments: INSTILL ONE DROP INTO BOTH EYES EVERY EVENING timolol maleate 0.5 % drops 1 drp ophthalmic (eye) BID Patient Comments: INSTILL ONE DROP INTO BOTH EYES TWO TIMES DAILY. insulin lispro [Humalog U-100 Insulin] 100 unit/mL Solution See Rx Instructions .ROUTE .COMPLEX Rx Instructions: pt unsure of dosage torsemide 20 mg tablet 20 mg PO DAILY Qty: 30 0RF azithromycin 250 mg tablet See Rx Instructions .ROUTE .COMPLEX Qty: 6 0RF Rx Instructions: For 250 mg dose pack: take 500 mg today (day 1), then 250 mg for 4 days (days 2-5) hydrocodone-acetaminophen 5-325 mg tablet 1 tab PO Q4-6H PRN (Reason: pain) Qty: 10 0RF diphenhydramine HCl 50 mg Capsule 50 mg PO BEDTIME PRN (Reason: Sleep) Rx Instructions: for itching and sleep pantoprazole 40 mg tablet,delayed release (DR/EC) 40 mg PO BEDTIME Patient Comments: TAKE ONE TABLET BY MOUTH ONE TIME DAILY insulin degludec [Tresiba FlexTouch U-200] 200 unit/mL (3 mL) insulin pen See Rx Instructions .ROUTE .COMPLEX Rx Instructions: 20u in the am 6units at bedtime sennosides [senna] 8.6 mg Tablet 8.6 mg PO PRN PRN (Reason: Constipation) acetaminophen 325 mg Tablet 975 mg PO Q8H Qty: 30 0RF naloxone [Narcan] 4 mg/actuation spray,non-aerosol 1 spray intranasal Q2M Qty: 2 0RF Rx Instructions: spray 1 dose into ONE nostril; alternate nostrils w each dose until help arrives ondansetron 4 mg tablet,disintegrating 4 mg PO Q8H PRN (Reason: nausea and vomiting) Qty: 15 0RF promethazine 25 mg tablet 25 mg PO Q6H PRN (Reason: nausea and vomiting) Qty: 30 0RF Referrals: Maria Ines Limon DO [Primary Care Provider] - Stand Alone Forms: Patient Portal/API
[2023-05-27 09:32] LABS: Alanine Aminotransferase 33 IU/L (<35); Albumin 2.9 g/dL (3.5-5.0); Albumin Globulin Ratio 0.9 (1.0-2.8); Alkaline Phosphatase 144 U/L (38-126); Aspartate Aminotransferase 30 IU/L (14-36); BUN Creatinine Ratio 14.1 (6-22); Bilirubin Total 0.4 mg/dL (0.2-1.3); Blood Urea Nitrogen 19 mg/dL (7-17); Calcium 8.6 mg/dL (8.4-10.2); Carbon Dioxide 28 mmol/L (22-32); Chloride 107 mmol/L (98-107); Estimated Glomerular Filt Rate 54 mL/min (>60); Globulin 3.3 g/dL (1.7-4.1); Glucose 136 mg/dL (70-100); Lipase 45 U/L (23-300); Potassium 4.3 mmol/L (3.4-5.1); Sodium 136 mmol/L (137-145); Total Protein 6.2 g/dL (6.3-8.2)
[2023-05-27 09:38] LABS: HEMOLYSIS 24 (0-50); Ketones (Beta-Hydroxybutyrate) 0.05 mmol/L (<0.27)
== END 2023-05-27 11:24 | disposition home or self-care (01) ==
PROVIDERS: Emergency Provider Emergency Medicine; PCP Student in an Organized Health Care Education/Training Program
DX: T78.3XXA Angioneurotic edema, initial encounter (principal); I10 Essential (primary) hypertension; Z79.899 Other long term (current) drug therapy
CPT/HCPCS: 80053; 82009; 83690; 85025; 93005; 93010; 96361; 96374; 96375; 99283; 99284; J1200; J2930

== ENCOUNTER 2023-05-31 17:28 | Emergency (ER) | payer OTHER, MEDICAID, SELFPAY ==
[2022-07-02 16:19] VITALS: BMI 20.8
[2023-05-31 17:30] VITALS: BP 136/89; PULSE 101; RESP 16; TEMP 36.6; O2SAT 98; BMI 22.6
--- NOTE | 2023-05-31 17:43 | PC.NURSE ---
Patient reports tachycardia is expected because she forgot to take her dose of Metoprolol this AM. She states she will take it when she gets home this evening.
--- NOTE | 2023-05-31 17:47 | ED.EXTPRO ---
HPI - Extremity Problem <Mauri Dejesus PA-C - Last Filed: 05/31/23 18:09> General Chief complaint: Extremity Problem,Nontraumatic Stated complaint: arm swelling and pain Time Seen by Provider: 05/31/23 17:46 Source: patient Mode of arrival: Family Vehicle History of Present Illness HPI Narrative: This is a 33-year-old female presents emergency department due to right arm swelling with some pain. She denies any trauma. History of CHF. She states that the right arm has been swollen over the last day or so. Denies any redness, fevers, nausea, vomiting, chest pain, shortness of breath, or any other concerning signs or symptoms. Related Data Home Medications Medication Instructions Recorded Confirmed glucagon (human recombinant) 1 mg 1 mg SUBCUT DIRECTED 02/16/19 07/02/22 solution for injection (Glucagon Emergency Kit) diphenhydramine HCl 50 mg capsule 50 mg PO BEDTIME PRN Sleep 09/29/20 07/02/22 insulin degludec 200 unit/mL (3 See Rx Instructions .Route .COMPLEX 11/13/21 07/02/22 mL) subcutaneous pen (Tresiba FlexTouch U-200 insulin) pantoprazole 40 mg tablet,delayed 40 mg PO BEDTIME 11/13/21 07/02/22 release sennosides 8.6 mg tablet (senna) 8.6 mg PO PRN PRN Constipation 11/13/21 07/02/22 atropine 1 % eye drops 1 drp ophthalmic (eye) BEDTIME 07/02/22 07/02/22 brinzolamide 1 %-brimonidine 0.2 % 1 drp ophthalmic (eye) BID 07/02/22 07/02/22 eye drops,suspension (Simbrinza) insulin lispro 100 unit/mL See Rx Instructions .Route .COMPLEX 07/02/22 07/04/22 subcutaneous solution (Humalog U-100 Insulin) latanoprost 0.005 % eye drops 1 drp ophthalmic (eye) BEDTIME 07/02/22 07/02/22 timolol maleate 0.5 % eye drops 1 drp ophthalmic (eye) BID 07/02/22 07/02/22 Previous Rx's Medication Instructions Recorded glucose 4 gram chewable tablet 4 gram PO Q15M PRN hypoglycemia 12/12/18 #30 tabs ondansetron 4 mg disintegrating 4 mg PO Q8H PRN nausea and 11/08/21 tablet vomiting #10 tabs acetaminophen 325 mg tablet 975 mg (3 x 325 mg) PO Q8H #30 tabs 11/18/21 naloxone 4 mg/actuation nasal 1 spray intranasal Q2M #2 ea 11/18/21 spray (Narcan) ondansetron 4 mg disintegrating 4 mg PO Q8H PRN nausea and 03/18/22 tablet vomiting #15 tabs torsemide 20 mg tablet 20 mg PO DAILY #30 tabs 07/05/22 azithromycin 250 mg tablet See Rx Instructions PO .COMPLEX #6 09/13/22 tabs hydrocodone 5 mg-acetaminophen 325 1 tab PO Q4-6H PRN pain #10 tabs 09/13/22 mg tablet promethazine 25 mg tablet 25 mg PO Q6H PRN nausea and 12/11/22 vomiting #30 tabs famotidine 20 mg tablet (Pepcid) 20 mg PO BID 5 days #10 tabs 05/27/23 prednisone 20 mg tablet 20 mg PO DAILY #5 tabs 05/27/23 furosemide 20 mg tablet 20 mg PO DAILY #10 tabs 05/31/23 Allergies Allergy/AdvReac Type Severity Reaction Status Date / Time abdalla [ABDALLA] Allergy Intermediate Hives, Verified 03/30/23 10:52 pruritus iodine [IODINE] Allergy Intermediate rash, itchy Verified 03/30/23 10:52 morphine Allergy Intermediate Difficulty Verified 03/30/23 10:52 Breathing shellfish derived Allergy Intermediate rash Verified 03/30/23 10:52 [SHELLFISH DERIVED] adhesive [ADHESIVE] Allergy Unknown tape Verified 03/30/23 10:52 latex [LATEX] Allergy Unknown Hives Verified 03/30/23 10:52 Review of Systems <Mauri Dejesus PA-C - Last Filed: 05/31/23 18:09> Review of Systems Narrative: GENERAL: Denies chills, fatigue, malaise, fever, sweats. HEENT: Denies sinus pain, ear pain, sore throat, difficulty swallowing, dizziness. RESPIRATORY: Denies dyspnea, cough, wheezing, hemoptysis, sputum. CARDIOVASCULAR: Denies chest pain, palpitations, orthopnea, edema, GASTROINTESTINAL: Denies nausea, vomiting, abdominal pain, diarrhea, constipation, melena. : Denies dysuria, frequency, incontinence, hematuria, urinary retention. MUSCULOSKELETAL: Right forearm pain and swelling SKIN: Denies rash, skin lesions, or other NEUROLOGIC: Denies weakness, headache, numbness, change in speech, confusion, seizures, incoordination. PSYCHIATRIC: No concerning psychosocial issues. 12 point review of systems is negative except for those stated above Patient History <Mauri Dejesus PA-C - Last Filed: 05/31/23 18:09> Medical History Noncompliance w/medication treatment due to intermit use of medication Irregular menstrual cycle Migraine headache History of pyelonephritis DKA (diabetic ketoacidoses) Nephrolithiasis Type 1 diabetes mellitus Surgical History Status post cholecystectomy Hx of cataract surgery Hx of local excision of skin lesion [place] teeth extracted Status post laser lithotripsy of ureteral calculus History of ureter stent Family History Father In good health Mother Cardiac disease Social History details: Engaged household members: family Smoking Status: Never smoker alcohol intake: never Smoking Status: Never smoker alcohol intake frequency: holidays/special occasions only Substance Use Type: does not use Exam <Mauri Dejesus PA-C - Last Filed: 05/31/23 18:09> Narrative Exam Narrative: GENERAL: Well-developed patient, in mild distress. HEAD: Atraumatic. Normocephalic. EYES: Pupils equal round and reactive. Extraocular motions intact. No scleral icterus. No injection or drainage. ENT: Nose without bleeding, purulent drainage. Throat without erythema, tonsillar hypertrophy or exudate. Airway patent. NECK: Trachea midline. Non tender EXTREMITIES: 1+ pitting edema to the right forearm. No erythema, no bruising. NEURO: AOx3. SKIN: No rash or erythema of visible areas Initial Vital Signs Initial Vital Signs: Vital Signs Temperature 97.9 F 05/31/23 17:30 Pulse Rate 101 H 05/31/23 17:30 Respiratory Rate 16 05/31/23 17:30 Blood Pressure 136/89 05/31/23 17:30 Pulse Oximetry 98 02/09/24 17:30 Oxygen Delivery Method Room Air 05/31/23 17:30 <DO Kaitlin Lucero Last Filed: 05/31/23 19:13> Initial Vital Signs Initial Vital Signs: Vital Signs Temperature 97.9 F 05/31/23 17:30 Pulse Rate 101 H 05/31/23 17:30 Respiratory Rate 16 05/31/23 17:30 Blood Pressure 136/89 05/31/23 17:30 Pulse Oximetry 98 05/31/23 17:30 Oxygen Delivery Method Room Air 05/31/23 17:30 Course <Mauri Dejesus PA-C - Last Filed: 05/31/23 18:09> Vital Signs Vital signs: Vital Signs - 8 hr 05/31/23 17:30 Temperature 97.9 F Pulse Rate 101 H Respiratory Rate 16 Blood Pressure 136/89 Pulse Oximetry 98 Oxygen Delivery Method Room Air <Chandu Peters DO - Last Filed: 05/31/23 19:13> Vital Signs Vital signs: Vital Signs - 8 hr 05/31/23 17:30 Temperature 97.9 F Pulse Rate 101 H Respiratory Rate 16 Blood Pressure 136/89 Pulse Oximetry 98 Oxygen Delivery Method Room Air MDM - Extremity (Nontraumatic) <SCOTTY Guzman Last Filed: 05/31/23 18:09> MDM Narrative Medical decision making narrative: ED course: This is a 33-year-old female presents to the emergency department due to right forearm swelling. There was 1+ pitting edema with palpation in his maybe due to patient's CHF. She takes 40 mg of Lasix daily and we will recommend taking 60 mg daily to see if this helps with the fluid retention. She will follow up with the grinder set up operator thread on Saturday. No trauma to the area and no need for x-ray. CC: Right forearm swollen Complicating co-morbidities: CHF Data collected from: Previous notes Medical records reviewed: Patient was last seen here 4 days ago due to lip swelling and chest feeling heavy. History of insulin-dependent diabetes, CHF. History of type 1 diabetes mellitus. Give him Benadryl, famotidine, normal saline, Solu-Medrol. Given prednisone 20 mg daily for 5 days. Differential considered, but not limited to: DVT, fluid overload due to CHF Exam documented above, pertinent findings include: 1+ pitting edema to the right forearm Lab Test results independently reviewed as above. Pertinent findings: None obtained Imaging studies independently reviewed: None obtained Scores Used: None MIPS Elements: None Consultations: None Treatments: None Re-evaluations: None Discussion: Discussed plan with the patient was comfortable with the plan Diagnosis: Right forearm swelling Disposition: see below, along with detailed discharge instructions that have been reviewed with patient as well as indications for ED re-evaluation and additional outpatient follow up Discharge Plan Departure Patient Disposition: Home Clinical Impression: Forearm swelling Activity Restrictions/Additional Instructions: Thank you for coming to the [facility] Emergency Department today. As we discussed the forearm swelling maybe due to fluid retention due to your CHF. Please increase your furosemide dosing to 60 mg daily, you may take 20 mg in the morning and 40 mg at night. Elevation of your arm should also help with the swelling. Please follow up with the grinder set up operator thread on Saturday for further follow up. Please return to the emergency department if you develop any chest pain, shortness of breath or any other concerning signs or symptoms. I hope you feel better soon. Please follow up with your primary care provider within a week if your symptoms continue. If you do not have a primary care provider please contact the [facility] Resource line at [phone]. They will ask some questions about your medical history and help you get set up with a provider in the community. Prescriptions: New furosemide 20 mg tablet 20 mg PO DAILY Qty: 10 0RF No Action glucose 4 gram tablet,chewable 4 gram PO Q15M PRN (Reason: hypoglycemia) Qty: 30 0RF Rx Instructions: until response Glucagon Emergency Kit (human) 1 mg recon soln 1 mg subcut DIRECTED ondansetron 4 mg tablet,disintegrating 4 mg PO Q8H PRN (Reason: nausea and vomiting) Qty: 10 0RF atropine 1 % drops 1 drp ophthalmic (eye) BEDTIME Patient Comments: INSTILL ONE DROP INTO BOTH EYES ONCE DAILY Rx Instructions: L eye only Simbrinza 1-0.2 % drops,suspension 1 drp ophthalmic (eye) BID Patient Comments: INSTILL ONE DROP INTO BOTH EYES TWO TIMES DAILY latanoprost 0.005 % drops 1 drp ophthalmic (eye) BEDTIME Patient Comments: INSTILL ONE DROP INTO BOTH EYES EVERY EVENING timolol maleate 0.5 % drops 1 drp ophthalmic (eye) BID Patient Comments: INSTILL ONE DROP INTO BOTH EYES TWO TIMES DAILY. insulin lispro [Humalog U-100 Insulin] 100 unit/mL Solution See Rx Instructions .ROUTE .COMPLEX Rx Instructions: pt unsure of dosage torsemide 20 mg tablet 20 mg PO DAILY Qty: 30 0RF azithromycin 250 mg tablet See Rx Instructions .ROUTE .COMPLEX Qty: 6 0RF Rx Instructions: For 250 mg dose pack: take 500 mg today (day 1), then 250 mg for 4 days (days 2-5) hydrocodone-acetaminophen 5-325 mg tablet 1 tab PO Q4-6H PRN (Reason: pain) Qty: 10 0RF diphenhydramine HCl 50 mg Capsule 50 mg PO BEDTIME PRN (Reason: Sleep) Rx Instructions: for itching and sleep pantoprazole 40 mg tablet,delayed release (DR/EC) 40 mg PO BEDTIME Patient Comments: TAKE ONE TABLET BY MOUTH ONE TIME DAILY insulin degludec [Tresiba FlexTouch U-200] 200 unit/mL (3 mL) insulin pen See Rx Instructions .ROUTE .COMPLEX Rx Instructions: 20u in the am 6units at bedtime sennosides [senna] 8.6 mg Tablet 8.6 mg PO PRN PRN (Reason: Constipation) acetaminophen 325 mg Tablet 975 mg PO Q8H Qty: 30 0RF naloxone [Narcan] 4 mg/actuation spray,non-aerosol 1 spray intranasal Q2M Qty: 2 0RF Rx Instructions: spray 1 dose into ONE nostril; alternate nostrils w each dose until help arrives ondansetron 4 mg tablet,disintegrating 4 mg PO Q8H PRN (Reason: nausea and vomiting) Qty: 15 0RF promethazine 25 mg tablet 25 mg PO Q6H PRN (Reason: nausea and vomiting) Qty: 30 0RF prednisone 20 mg tablet 20 mg PO DAILY Qty: 5 0RF famotidine [Pepcid] 20 mg tablet 20 mg PO BID 5 Days Qty: 10 0RF Referrals: Maria Ines Limon DO [Primary Care Provider] - Stand Alone Forms: Patient Portal/API ED Sign-out <Chandu Peters DO - Last Filed: 05/31/23 19:13> Cosign ED Attending Cosignature Attestation: Dr Peters Co-Sign Statement: I was available for consultation during this patient's emergency department visit. This chart is signed by myself for administrative purposes only. I did not have direct contact with this patient during this visit. They were seen independently by the APC.
== END 2023-05-31 18:15 | disposition home or self-care (01) ==
PROVIDERS: Emergency Provider Physician Assistant Medical; PCP Student in an Organized Health Care Education/Training Program
DX: M79.89 Other specified soft tissue disorders (principal); I50.9 Heart failure, unspecified
CPT/HCPCS: 99281

== ENCOUNTER 2023-07-22 11:45 | Emergency (ER) | payer OTHER, MEDICAID, SELFPAY ==
[2022-07-02 16:19] VITALS: BMI 20.8
[2023-07-22 12:00] VITALS: BP 119/87; PULSE 78; RESP 16; O2SAT 97; BMI 22.6
[2023-07-22] MEDS: PROPARACAINE 0.5% OPHTH SOL 1 DROPS EYE-LEFT (14:13)
--- NOTE | 2023-07-22 14:28 | DI.CT.S_ITS ---
PROCEDURE: CT ORBIT BI W CON INDICATIONS: L eye pain TECHNIQUE: After the administration of intravenous contrast, 2.5 mm axial images acquired through the orbits, with coronal and sagittal reformats. For radiation dose reduction, the following was used: automated exposure control, adjustment of mA and/or kV according to patient size. COMPARISON: [facility], CT, CT HEAD/BRAIN WO CON, 03/30/2023, 12:34. FINDINGS: Image quality: Excellent. Orbits: Globes are symmetrical. The optic nerves are normal in size and enhancement. No retrobulbar masses or fat abnormalities. The extra-ocular muscles are normal and symmetrical in appearance. Lacrimal glands are normal. Optic chiasm is normal. Periorbital soft tissues are normal. Intracranial: The pituitary gland is normal, without sellar or suprasellar masses. Visualized cerebral hemispheres, brainstem, and spinal cord appear normal. Bones and sinuses: Visualized calvarium and facial bones appear intact. Visualized sinuses and mastoids are clear. IMPRESSION: Normal orbits by CT. No masses or abnormal enhancement can be seen. Dictated by: Remi Polanco M.D. on 07/22/2023 at 15:07 Approved by: Remi Polanco M.D. on 07/22/2023 at 15:08
--- NOTE | 2023-07-22 14:30 | ED_ITS ---
HPI - Eye Problem <Mc Fonseca PA-C - Last Filed: 07/22/23 18:23> General Chief complaint: Eye Problems Stated complaint: lt eye ulcer, painfull and swollen Time Seen by Provider: 07/22/23 13:44 History of Present Illness HPI Narrative: 33-year-old female with past medical history type 1 diabetes, CHF, glaucoma, corneal ulcer presents to the ED with 2 days of worsening left eye pain. Patient describes the pain as being inside her eye, also below her eye. Patient appears extremely photophobic and holding her eye closed. Patient states that the pain has been unresponsive to Tylenol and ibuprofen. Patient has been diagnosed and treated for a corneal ulcer in the left eye for the last 2 months. Patient is applying tobramycin eyedrops every 2 hours. Patient also has a history of glaucoma for which she is applying timolol eyedrops. Course eye pain with extraocular movement. Patient does not have any vision in the left eye as baseline. Patient sees business taxes specialist Dr. Lyman in [place]. Patient has also been referred to a corneal specialist for treatment of the ulcer prior to continue treatment of the glaucoma. Patient denies fever, chills, chest pain, shortness of breath, nausea, vomiting, dysuria, abdominal pain, lightheadedness, dizziness, syncope. Patient states that she does not believe she is in DKA today. Patient's blood sugar this morning was 260, which according to her mother is a little higher than her normal. Patient endorses taking insulin as prescribed. Related Data Home Medications Medication Instructions Recorded Confirmed glucagon (human recombinant) 1 mg 1 mg SUBCUT DIRECTED 02/16/19 07/02/22 solution for injection (Glucagon Emergency Kit) diphenhydramine HCl 50 mg capsule 50 mg PO BEDTIME PRN Sleep 09/29/20 07/02/22 insulin degludec 200 unit/mL (3 See Rx Instructions .Route .COMPLEX 11/13/21 07/02/22 mL) subcutaneous pen (Tresiba FlexTouch U-200 insulin) pantoprazole 40 mg tablet,delayed 40 mg PO BEDTIME 11/13/21 07/02/22 release sennosides 8.6 mg tablet (senna) 8.6 mg PO PRN PRN Constipation 11/13/21 07/02/22 atropine 1 % eye drops 1 drp ophthalmic (eye) BEDTIME 07/02/22 07/02/22 brinzolamide 1 %-brimonidine 0.2 % 1 drp ophthalmic (eye) BID 07/02/22 07/02/22 eye drops,suspension (Simbrinza) insulin lispro 100 unit/mL See Rx Instructions .Route .COMPLEX 07/02/22 07/04/22 subcutaneous solution (Humalog U-100 Insulin) latanoprost 0.005 % eye drops 1 drp ophthalmic (eye) BEDTIME 07/02/22 07/02/22 timolol maleate 0.5 % eye drops 1 drp ophthalmic (eye) BID 07/02/22 07/02/22 Previous Rx's Medication Instructions Recorded glucose 4 gram chewable tablet 4 gram PO Q15M PRN hypoglycemia 12/12/18 #30 tabs ondansetron 4 mg disintegrating 4 mg PO Q8H PRN nausea and 11/08/21 tablet vomiting #10 tabs acetaminophen 325 mg tablet 975 mg (3 x 325 mg) PO Q8H #30 tabs 11/18/21 naloxone 4 mg/actuation nasal 1 spray intranasal Q2M #2 ea 11/18/21 spray (Narcan) ondansetron 4 mg disintegrating 4 mg PO Q8H PRN nausea and 03/18/22 tablet vomiting #15 tabs torsemide 20 mg tablet 20 mg PO DAILY #30 tabs 07/05/22 azithromycin 250 mg tablet See Rx Instructions PO .COMPLEX #6 09/13/22 tabs hydrocodone 5 mg-acetaminophen 325 1 tab PO Q4-6H PRN pain #10 tabs 09/13/22 mg tablet promethazine 25 mg tablet 25 mg PO Q6H PRN nausea and 12/11/22 vomiting #30 tabs prednisone 20 mg tablet 20 mg PO DAILY #5 tabs 05/27/23 furosemide 20 mg tablet 20 mg PO DAILY #10 tabs 05/31/23 tramadol 50 mg tablet 50 mg PO TID PRN pain 3 days #10 07/22/23 tabs Allergies Allergy/AdvReac Type Severity Reaction Status Date / Time abdalla [ABDALLA] Allergy Intermediate Hives, Verified 03/30/23 10:52 pruritus iodine [IODINE] Allergy Intermediate rash, itchy Verified 03/30/23 10:52 morphine Allergy Intermediate Difficulty Verified 03/30/23 10:52 Breathing shellfish derived Allergy Intermediate rash Verified 03/30/23 10:52 [SHELLFISH DERIVED] adhesive [ADHESIVE] Allergy Unknown tape Verified 03/30/23 10:52 latex [LATEX] Allergy Unknown Hives Verified 03/30/23 10:52 Review of Systems <Mc Fonseca PA-C - Last Filed: 07/22/23 18:23> Constitutional Constitutional: Denies chills, Denies fatigue, Denies fever(s), Denies frequent falls, Denies lethargy and Denies weakness Eyes Eyes: Denies change in vision, Denies eye discharge, Denies irritation and Denies loss of vision Comments: Left eye pain, sensitivity to light ENT Ears, Nose, Mouth, and Throat: Denies change in voice, Denies dizziness, Denies neck pain, Denies sore throat and Denies throat swelling Cardiovascular Cardiovascular: Denies chest pain, Denies irregular heart rhythm, Denies lightheadedness, Denies palpitations, Denies dyspnea, Denies dyspnea on exertion and Denies orthopnea Respiratory Respiratory: Denies cough, Denies dyspnea, Denies dyspnea on exertion and Denies wheezing Gastrointestinal Gastrointestinal: Denies abdominal pain, Denies change in bowel habits, Denies diarrhea, Denies nausea and Denies vomiting Musculoskeletal Musculoskeletal: Denies neck pain and Denies numbness Integumentary/Breasts Skin/Breast: Denies pruritus, Denies erythema, Denies rash and Denies wounds Neurologic Neurologic: Denies behavioral changes, Denies confusion, Denies dizziness, Denies frequent falls, Denies loss of vision, Denies numbness and Denies weakness Psychiatric Psychiatric: Denies anxiety, Denies behavioral changes, Denies confusion, Denies depression, Denies homicidal ideation and Denies suicidal ideation Endocrine Endocrine: Denies fatigue, Denies flushing and Denies palpitations Hematologic/Lymphatic Hematologic/Lymphatic: Denies easy bruising Allergic/Immunologic Allergic/Immunologic: Denies urticaria, Denies throat swelling and Denies wheezing Patient History <Mc Fonseca PA-C - Last Filed: 07/22/23 18:23> Medical History Noncompliance w/medication treatment due to intermit use of medication Irregular menstrual cycle Migraine headache History of pyelonephritis DKA (diabetic ketoacidoses) Nephrolithiasis Type 1 diabetes mellitus Surgical History Status post cholecystectomy Hx of cataract surgery Hx of local excision of skin lesion [place] teeth extracted Status post laser lithotripsy of ureteral calculus History of ureter stent Family History Father In good health Mother Cardiac disease Social History details: Engaged household members: family Smoking Status: Never smoker alcohol intake: never Smoking Status: Never smoker alcohol intake frequency: holidays/special occasions only Substance Use Type: does not use Exam <Mc Fonseca PA-C - Last Filed: 07/22/23 18:23> Narrative Exam Narrative: Const General:?cooperative, healthy appearing and comfortable HENMT Head:?normal to inspection Ears:?hearing grossly normal bilaterally Nose:?external nose normal Face and sinus:?normal facial exam and sinuses nontender Mouth:?oral mucosae normal Throat:?posterior oropharynx normal Eyes Corneal ulcer visualized in left eye. There is significant conjunctival injection of left eye. There is pain with extraocular movements. IOP 45 mmHg OD. IOP 17 mmHg OS. No pain relief with topical proparacaine. Neck Neck:?normal visual inspection and no lymphadenopathy noted Resp Effort & Inspection:?normal respiratory effort Auscultation:?clear to auscultation bilaterally Cardio Rate:?regular rate Rhythm:?regular rhythm Neuro General:?patient alert, patient awake and patient oriented x3 Initial Vital Signs Initial Vital Signs: Vital Signs Pulse Rate 78 07/22/23 12:00 Respiratory Rate 16 07/22/23 12:00 Blood Pressure 119/87 07/22/23 12:00 Pulse Oximetry 97 07/22/23 12:00 Oxygen Delivery Method Room Air 07/22/23 12:00 <Megan Luevano DO - Last Filed: 07/23/23 08:56> Initial Vital Signs Initial Vital Signs: Vital Signs Pulse Rate 78 07/22/23 12:00 Respiratory Rate 16 07/22/23 12:00 Blood Pressure 119/87 07/22/23 12:00 Pulse Oximetry 97 07/22/23 12:00 Oxygen Delivery Method Room Air 07/22/23 12:00 Course <Mc Fonseca PA-C - Last Filed: 07/22/23 18:23> Orders Ordered: Discontinued Medications Diphenhydramine HCl (Diphenhydramine 50 Mg/Ml Vial) 50 mg IV NOW ONE Stop: 07/22/23 14:38 Last Admin: 07/22/23 15:23 Dose: 50 mg Documented By: BS Methylprednisolone (Methylprednisolone 125 Mg/2 Ml Vial) 125 mg IV NOW ONE Stop: 07/22/23 14:38 Last Admin: 07/22/23 15:23 Dose: 125 mg Documented By: BS Proparacaine HCl (Proparacaine 0.5% Ophth Suzi) 1 drops EYE-LEFT NOW ONE Stop: 07/22/23 14:10 Last Admin: 07/22/23 14:13 Dose: 1 drop Documented By: BS Vital Signs Vital signs: Vital Signs - 8 hr 07/22/23 12:00 07/22/23 15:34 07/22/23 16:57 Temperature 98.1 F Pulse Rate 78 72 80 Respiratory Rate 16 16 16 Blood Pressure 119/87 107/80 164/94 H Pulse Oximetry 97 98 97 Oxygen Delivery Method Room Air Room Air Room Air <Megan Luevano DO - Last Filed: 07/23/23 08:56> Orders Ordered: Discontinued Medications Diphenhydramine HCl (Diphenhydramine 50 Mg/Ml Vial) 50 mg IV NOW ONE Stop: 07/22/23 14:38 Last Admin: 07/22/23 15:23 Dose: 50 mg Documented By: BS Methylprednisolone (Methylprednisolone 125 Mg/2 Ml Vial) 125 mg IV NOW ONE Stop: 07/22/23 14:38 Last Admin: 07/22/23 15:23 Dose: 125 mg Documented By: BS Proparacaine HCl (Proparacaine 0.5% Ophth Suzi) 1 drops EYE-LEFT NOW ONE Stop: 07/22/23 14:10 Last Admin: 07/22/23 14:13 Dose: 1 drop Documented By: BS Vital Signs Vital signs: Vital Signs - 8 hr 07/22/23 12:00 07/22/23 15:34 07/22/23 16:57 Temperature 98.1 F Pulse Rate 78 72 80 Respiratory Rate 16 16 16 Blood Pressure 119/87 107/80 164/94 H Pulse Oximetry 97 98 97 Oxygen Delivery Method Room Air Room Air Room Air MDM - Eye Problem <Mc Fonseca PA-C - Last Filed: 07/22/23 18:23> Lab Data 07/22/23 15:15 07/22/23 15:15 Labs: Lab Results 07/22/23 Range/Units 15:15 WBC 9.1 (4.5-11.0) X10^3/uL RBC 4.63 (4.0-5.2) X10^6/uL Hgb 13.2 (12.0-16.0) g/dL Hct 40.6 (36-46) % MCV 87.8 (80-100) fL MCH 28.5 (26-34) PG MCHC 32.5 (30-36) % RDW 13.8 (11.6-14.8) % Plt Count 323 (150-400) X10^3/uL Neut % (Auto) 63.8 (50-75) % Lymph % (Auto) 26.0 (25-40) % [place] % (Auto) 7.0 (3-14) % Eos % (Auto) 2.1 (2-4) % Baso % (Auto) 1.1 (0-2) % Neut # (Auto) 5800 (9563-4900) /uL Lymph # (Auto) 2400 (1309-1414) /uL [place] # (Auto) 600 (0-900) /uL Eos # (Auto) 200 (0-450) /uL Baso # (Auto) 100 (0-100) /uL Sodium 134 L (137-145) mmol/L Potassium 6.0 H (3.4-5.1) mmol/L Chloride 112 H (98-107) mmol/L Carbon Dioxide 20 L (22-32) mmol/L BUN 27 H (7-17) mg/dL Creatinine 1.49 H (0.52-1.04) mg/dL Estimated GFR 48 L (>60) mL/min BUN/Creatinine Ratio 18.1 (6-22) Glucose 262 H (70-100) mg/dL Calcium 8.5 (8.4-10.2) mg/dL Phosphorus 5.1 H (2.5-4.5) mg/dL Magnesium 2.6 H (1.6-2.3) mg/dL Total Bilirubin 0.4 (0.2-1.3) mg/dL AST 20 (14-36) IU/L ALT 23 (<35) IU/L Alkaline Phosphatase 141 H (38-126) U/L Total Protein 6.2 L (6.3-8.2) g/dL Albumin 2.9 L (3.5-5.0) g/dL Globulin 3.3 (1.7-4.1) g/dL Albumin/Globulin Ratio 0.9 L (1.0-2.8) Lipase 30 (23-300) U/L Ketones 0.95 H (<0.27) mmol/L MDM Narrative Medical decision making narrative: 33-year-old female with past medical history type 1 diabetes, CHF, glaucoma, corneal ulcer presents to the ED with 2 days of worsening left eye pain. Concern for orbital cellulitis versus corneal ulcer versus orbital abscess versus glaucoma versus DKA versus other. Will obtain labs, UA, CT orbit, intra- ocular pressures. Will reassess. IOP is 45 mmHg in the left eye. IOP is 17 in the right eye. CT orbit without acute findings. Patient's pain did not improve with topical proparacaine. Consulted with patient's business taxes specialist Dr. Lyman who recommended follow-up with an business taxes specialist as soon as possible. He recommends continuing ocuflex and timolol. Discussed findings with patient and patient's mother. Patient's mother states that she has a appointment in 3 days with a cornea specialist. Patient's mother also states that it is difficult to get seen by an business taxes specialist locally due to insurance reasons. Patient's mother understands the pros and cons of waiting for the next 3 days. Prescribed tramadol for pain control. Patient's mother also clarified that patient is on tobramycin instead of the Ocuflox since patient is allergic to Ocuflox. ED return precautions discussed with patient and patient's mother. They verbalized understanding. Medical records reviewed: Yes <Megan Luevano DO - Last Filed: 07/23/23 08:56> Lab Data Labs: Lab Results 07/22/23 Range/Units 15:15 WBC 9.1 (4.5-11.0) X10^3/uL RBC 4.63 (4.0-5.2) X10^6/uL Hgb 13.2 (12.0-16.0) g/dL Hct 40.6 (36-46) % MCV 87.8 (80-100) fL MCH 28.5 (26-34) PG MCHC 32.5 (30-36) % RDW 13.8 (11.6-14.8) % Plt Count 323 (150-400) X10^3/uL Neut % (Auto) 63.8 (50-75) % Lymph % (Auto) 26.0 (25-40) % [place] % (Auto) 7.0 (3-14) % Eos % (Auto) 2.1 (2-4) % Baso % (Auto) 1.1 (0-2) % Neut # (Auto) 5800 (2308-9663) /uL Lymph # (Auto) 2400 (0978-9564) /uL [place] # (Auto) 600 (0-900) /uL Eos # (Auto) 200 (0-450) /uL Baso # (Auto) 100 (0-100) /uL Sodium 134 L (137-145) mmol/L Potassium 6.0 H (3.4-5.1) mmol/L Chloride 112 H (98-107) mmol/L Carbon Dioxide 20 L (22-32) mmol/L BUN 27 H (7-17) mg/dL Creatinine 1.49 H (0.52-1.04) mg/dL Estimated GFR 48 L (>60) mL/min BUN/Creatinine Ratio 18.1 (6-22) Glucose 262 H (70-100) mg/dL Calcium 8.5 (8.4-10.2) mg/dL Phosphorus 5.1 H (2.5-4.5) mg/dL Magnesium 2.6 H (1.6-2.3) mg/dL Total Bilirubin 0.4 (0.2-1.3) mg/dL AST 20 (14-36) IU/L ALT 23 (<35) IU/L Alkaline Phosphatase 141 H (38-126) U/L Total Protein 6.2 L (6.3-8.2) g/dL Albumin 2.9 L (3.5-5.0) g/dL Globulin 3.3 (1.7-4.1) g/dL Albumin/Globulin Ratio 0.9 L (1.0-2.8) Lipase 30 (23-300) U/L Ketones 0.95 H (<0.27) mmol/L Discharge Plan Departure Patient Disposition: Home Clinical Impression: Eye pain Qualifiers: Laterality: left Qualified Code(s): H57.12 - Ocular pain, left eye Instructions: Corneal Ulcer Activity Restrictions/Additional Instructions: You were evaluated in the ED today for left-sided eye pain. The eye pressure in the left eye was 45 mmHg which is elevated due to your glaucoma. The CT scan did not show any acute findings. We discussed the findings with your business taxes specialist Dr. Lyman who suggested you be seen by an business taxes specialist as soon as possible. He recommends continuing timolol and antibiotic. It appears that you have a appointment in 3 days with corneal specialist. Please keep that appointment for further evaluation. You are being prescribed some pain medication for the eye pain. Return to the ED if you have worsening symptoms. Prescriptions: New tramadol 50 mg tablet 50 mg PO TID PRN (Reason: pain) 3 Days Qty: 10 0RF No Action glucose 4 gram tablet,chewable 4 gram PO Q15M PRN (Reason: hypoglycemia) Qty: 30 0RF Rx Instructions: until response Glucagon Emergency Kit (human) 1 mg recon soln 1 mg subcut DIRECTED ondansetron 4 mg tablet,disintegrating 4 mg PO Q8H PRN (Reason: nausea and vomiting) Qty: 10 0RF atropine 1 % drops 1 drp ophthalmic (eye) BEDTIME Patient Comments: INSTILL ONE DROP INTO BOTH EYES ONCE DAILY Rx Instructions: L eye only Simbrinza 1-0.2 % drops,suspension 1 drp ophthalmic (eye) BID Patient Comments: INSTILL ONE DROP INTO BOTH EYES TWO TIMES DAILY latanoprost 0.005 % drops 1 drp ophthalmic (eye) BEDTIME Patient Comments: INSTILL ONE DROP INTO BOTH EYES EVERY EVENING timolol maleate 0.5 % drops 1 drp ophthalmic (eye) BID Patient Comments: INSTILL ONE DROP INTO BOTH EYES TWO TIMES DAILY. insulin lispro [Humalog U-100 Insulin] 100 unit/mL Solution See Rx Instructions .ROUTE .COMPLEX Rx Instructions: pt unsure of dosage torsemide 20 mg tablet 20 mg PO DAILY Qty: 30 0RF azithromycin 250 mg tablet See Rx Instructions .ROUTE .COMPLEX Qty: 6 0RF Rx Instructions: For 250 mg dose pack: take 500 mg today (day 1), then 250 mg for 4 days (days 2-5) hydrocodone-acetaminophen 5-325 mg tablet 1 tab PO Q4-6H PRN (Reason: pain) Qty: 10 0RF furosemide 20 mg tablet 20 mg PO DAILY Qty: 10 0RF diphenhydramine HCl 50 mg Capsule 50 mg PO BEDTIME PRN (Reason: Sleep) Rx Instructions: for itching and sleep pantoprazole 40 mg tablet,delayed release (DR/EC) 40 mg PO BEDTIME Patient Comments: TAKE ONE TABLET BY MOUTH ONE TIME DAILY insulin degludec [Tresiba FlexTouch U-200] 200 unit/mL (3 mL) insulin pen See Rx Instructions .ROUTE .COMPLEX Rx Instructions: 20u in the am 6units at bedtime sennosides [senna] 8.6 mg Tablet 8.6 mg PO PRN PRN (Reason: Constipation) acetaminophen 325 mg Tablet 975 mg PO Q8H Qty: 30 0RF naloxone [Narcan] 4 mg/actuation spray,non-aerosol 1 spray intranasal Q2M Qty: 2 0RF Rx Instructions: spray 1 dose into ONE nostril; alternate nostrils w each dose until help arrives ondansetron 4 mg tablet,disintegrating 4 mg PO Q8H PRN (Reason: nausea and vomiting) Qty: 15 0RF promethazine 25 mg tablet 25 mg PO Q6H PRN (Reason: nausea and vomiting) Qty: 30 0RF prednisone 20 mg tablet 20 mg PO DAILY Qty: 5 0RF Referrals: Maria Ines Limon DO [Primary Care Provider] - Stand Alone Forms: Patient Portal/API ED Sign-out <Megan Luevano DO - Last Filed: 07/23/23 08:56> Cosign ED Attending Cosignature Attestation: Patient seen evaluated by myself. She is well known to this facility and myself. She is blind in her left eye. She has a known corneal ulcer which is visible to the naked eye. It is quite painful. Mom reports that the obvious ulcer was not there before. She apparently has had allergic reactions to both tobramycin and ofloxacin. Raymundo FAJARDO spoke with Ophthalmology. Blood work has been reviewed by myself after discharge found to have a potassium of 6.0 chloride 112 carbon dioxide 20 BUN 27 creatinine 1.49 glucose 262 Anion gap 2.0, no evidence of DKA 08:55 I called patient this morning regards to her potassium strongly encouraged her to come back and get her blood work rechecked. No medication was given for hyperkalemia. She understands agrees she states that her eyes feeling a bit better.
[2023-07-22 15:23] LABS: Add Manual Diff / Slide Review NO; Basophils Absolute Auto 100 /uL (0-100); Basophils Percent Auto 1.1 % (0-2); Eosinophils Absolute Auto 200 /uL (0-450); Eosinophils Percent Auto 2.1 % (2-4); Hematocrit 40.6 % (36-46); Hemoglobin 13.2 g/dL (12.0-16.0); Lymphocytes Absolute Auto 2400 /uL (1100-4500); Mean Corpuscular HGB Conc 32.5 % (30-36); Mean Corpuscular Hemoglobin 28.5 PG (26-34); Mean Corpuscular Volume 87.8 fL (80-100); Monocytes Absolute Auto 600 /uL (0-900); Neutrophils Absolute Auto 5800 /uL (1500-7000); Neutrophils Percent Auto 63.8 % (50-75); Platelet Count 323 X10^3/uL (150-400); Red Blood Cell Count 4.63 X10^6/uL (4.0-5.2); Red Cell Distribution Width 13.8 % (11.6-14.8); White Blood Cell Count 9.1 X10^3/uL (4.5-11.0)
[2023-07-22] MEDS: diphenhydrAMINE 50 MG/ML VIAL IV (15:23)
[2023-07-22] MEDS: methylPREDNISolone 125 MG/2 ML VIAL IV (15:23)
[2023-07-22 15:31] LABS: HEMOLYSIS 25 (0-50)
[2023-07-22 15:34] VITALS: BP 107/80; PULSE 72; RESP 16; O2SAT 98
[2023-07-22 15:35] LABS: Alanine Aminotransferase 23 IU/L (<35); Albumin 2.9 g/dL (3.5-5.0); Albumin Globulin Ratio 0.9 (1.0-2.8); Alkaline Phosphatase 141 U/L (38-126); Aspartate Aminotransferase 20 IU/L (14-36); BUN Creatinine Ratio 18.1 (6-22); Bilirubin Total 0.4 mg/dL (0.2-1.3); Blood Urea Nitrogen 27 mg/dL (7-17); Calcium 8.5 mg/dL (8.4-10.2); Carbon Dioxide 20 mmol/L (22-32); Chloride 112 mmol/L (98-107); Estimated Glomerular Filt Rate 48 mL/min (>60); Globulin 3.3 g/dL (1.7-4.1); Glucose 262 mg/dL (70-100); Lipase 30 U/L (23-300); Magnesium 2.6 mg/dL (1.6-2.3); Phosphorous 5.1 mg/dL (2.5-4.5); Sodium 134 mmol/L (137-145); Total Protein 6.2 g/dL (6.3-8.2)
[2023-07-22 15:53] LABS: Ketones (Beta-Hydroxybutyrate) 0.95 mmol/L (<0.27)
[2023-07-22 16:57] VITALS: BP 164/94; PULSE 80; RESP 16; TEMP 36.7; O2SAT 97
== END 2023-07-22 17:09 | disposition home or self-care (01) ==
PROVIDERS: Emergency Provider Student in an Organized Health Care Education/Training Program; PCP Student in an Organized Health Care Education/Training Program
DX: H57.12 Ocular pain, left eye (principal); Z79.899 Other long term (current) drug therapy
CPT/HCPCS: 36415; 70481; 80053; 82009; 83690; 83735; 84100; 85025; 96374; 96375; 99284; J1200; J2919

== ENCOUNTER 2023-07-23 11:52 | Emergency (ER) | payer OTHER, MEDICAID, SELFPAY ==
[2022-07-02 16:19] VITALS: BMI 20.8
[2023-07-23 11:55] VITALS: BP 188/97; PULSE 88; RESP 16; TEMP 37.2; O2SAT 97; BMI 22.6
[2023-07-23 11:58] VITALS: BP 190/101; PULSE 88; O2SAT 97
[2023-07-23 12:00] VITALS: BP 188/97; PULSE 86; RESP 12; O2SAT 99
[2023-07-23 12:21] LABS: Alanine Aminotransferase 25 IU/L (<35); Albumin 3.2 g/dL (3.5-5.0); Alkaline Phosphatase 151 U/L (38-126); Aspartate Aminotransferase 19 IU/L (14-36); BUN Creatinine Ratio 17.4 (6-22); Bilirubin Total 0.3 mg/dL (0.2-1.3); Blood Urea Nitrogen 35 mg/dL (7-17); Calcium 8.9 mg/dL (8.4-10.2); Carbon Dioxide 19 mmol/L (22-32); Chloride 107 mmol/L (98-107); Estimated Glomerular Filt Rate 33 mL/min (>60); Globulin 3.3 g/dL (1.7-4.1); Glucose 398 mg/dL (70-100); HEMOLYSIS < 15 (0-50); Sodium 132 mmol/L (137-145); Total Protein 6.5 g/dL (6.3-8.2)
[2023-07-23 12:22] LABS: Potassium 6.2 mmol/L (3.4-5.1)
[2023-07-23 12:30] VITALS: BP 175/94; PULSE 84; RESP 10; O2SAT 98
--- NOTE | 2023-07-23 12:38 | ED_ITS ---
HPI - Recheck/Abnormal Lab/Rx General Chief Complaint: Recheck/Abnormal Lab/Rx Stated Complaint: sent by pcp to recheck lab Time Seen by Provider: 07/23/23 11:57 Source: patient and family Mode of arrival: Wheelchair History of Present Illness HPI narrative: Patient is a 33-year-old female history of insulin-dependent diabetes multiple complications from diabetes presenting today with abnormal blood work. She was actually seen evaluated here yesterday for eye pain. 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 She was here yesterday for increasing pain she would blood work done potassium was noted to be 6.0 I called her back this morning to have it rechecked. He denies any symptoms she reports that her eye pain is a little bit better going to see the cornea specialist in 2 days. Glucose is slightly high no abdominal pain nausea or vomiting. Otherwise not having any sort of complaints Related Data Home Medications Medication Instructions Recorded Confirmed glucagon (human recombinant) 1 mg 1 mg SUBCUT DIRECTED 02/16/19 07/02/22 solution for injection (Glucagon Emergency Kit) diphenhydramine HCl 50 mg capsule 50 mg PO BEDTIME PRN Sleep 09/29/20 07/02/22 insulin degludec 200 unit/mL (3 See Rx Instructions .Route .COMPLEX 11/13/21 07/02/22 mL) subcutaneous pen (Tresiba FlexTouch U-200 insulin) pantoprazole 40 mg tablet,delayed 40 mg PO BEDTIME 11/13/21 07/02/22 release sennosides 8.6 mg tablet (senna) 8.6 mg PO PRN PRN Constipation 11/13/21 07/02/22 atropine 1 % eye drops 1 drp ophthalmic (eye) BEDTIME 07/02/22 07/02/22 brinzolamide 1 %-brimonidine 0.2 % 1 drp ophthalmic (eye) BID 07/02/22 07/02/22 eye drops,suspension (Simbrinza) insulin lispro 100 unit/mL See Rx Instructions .Route .COMPLEX 07/02/22 07/04/22 subcutaneous solution (Humalog U-100 Insulin) latanoprost 0.005 % eye drops 1 drp ophthalmic (eye) BEDTIME 07/02/22 07/02/22 timolol maleate 0.5 % eye drops 1 drp ophthalmic (eye) BID 07/02/22 07/02/22 Previous Rx's Medication Instructions Recorded glucose 4 gram chewable tablet 4 gram PO Q15M PRN hypoglycemia 12/12/18 #30 tabs ondansetron 4 mg disintegrating 4 mg PO Q8H PRN nausea and 11/08/21 tablet vomiting #10 tabs acetaminophen 325 mg tablet 975 mg (3 x 325 mg) PO Q8H #30 tabs 11/18/21 naloxone 4 mg/actuation nasal 1 spray intranasal Q2M #2 ea 11/18/21 spray (Narcan) ondansetron 4 mg disintegrating 4 mg PO Q8H PRN nausea and 03/18/22 tablet vomiting #15 tabs torsemide 20 mg tablet 20 mg PO DAILY #30 tabs 07/05/22 azithromycin 250 mg tablet See Rx Instructions PO .COMPLEX #6 09/13/22 tabs hydrocodone 5 mg-acetaminophen 325 1 tab PO Q4-6H PRN pain #10 tabs 09/13/22 mg tablet promethazine 25 mg tablet 25 mg PO Q6H PRN nausea and 12/11/22 vomiting #30 tabs prednisone 20 mg tablet 20 mg PO DAILY #5 tabs 05/27/23 furosemide 20 mg tablet 20 mg PO DAILY #10 tabs 05/31/23 tramadol 50 mg tablet 50 mg PO TID PRN pain 3 days #10 07/22/23 tabs Allergies Allergy/AdvReac Type Severity Reaction Status Date / Time arredondo [ARREDONDO] Allergy Intermediate Hives, Verified 07/23/23 12:05 pruritus iodine [IODINE] Allergy Intermediate rash, itchy Verified 07/23/23 12:05 morphine Allergy Intermediate Difficulty Verified 07/23/23 12:05 Breathing shellfish derived Allergy Intermediate rash Verified 07/23/23 12:05 [SHELLFISH DERIVED] adhesive [ADHESIVE] Allergy Unknown tape Verified 07/23/23 12:05 latex [LATEX] Allergy Unknown Hives Verified 07/23/23 12:05 Patient History Medical History Noncompliance w/medication treatment due to intermit use of medication Irregular menstrual cycle Migraine headache History of pyelonephritis DKA (diabetic ketoacidoses) Nephrolithiasis Type 1 diabetes mellitus Surgical History Status post cholecystectomy Hx of cataract surgery Hx of local excision of skin lesion [place] teeth extracted Status post laser lithotripsy of ureteral calculus History of ureter stent Family History Father In good health Mother Cardiac disease Social History details: Engaged household members: family Smoking Status: Never smoker alcohol intake: never Smoking Status: Never smoker alcohol intake frequency: holidays/special occasions only Substance Use Type: does not use Exam Initial Vital Signs Initial Vital Signs: Vital Signs Temperature 99.0 F 07/23/23 11:55 Pulse Rate 88 07/23/23 11:55 Respiratory Rate 16 07/23/23 11:55 Blood Pressure 188/97 H 07/23/23 11:55 Pulse Oximetry 97 07/23/23 11:55 Oxygen Delivery Method Room Air 07/23/23 11:55 GENERAL: More 33-year-old female wearing sunglasses HEENT: Head atraumatic, CARDIOVASCULAR: Regular rate and rhythm without murmurs, rubs or gallops. RESPIRATORY: Breath sounds equal bilaterally, no wheezes rales or rhonchi. ABDOMEN: Soft, nontender. Normoactive bowel sounds all 4 quadrants. No guarding or rebound. EXTREMITIES: Normal range of motion, no clubbing or edema. Neurovascularly intact NEUROLOGICAL: Alert and oriented x4 SKIN: Warm, dry, no laceration, no petechiae, no rashes or lesions. Course Orders Ordered: ED Orders 07/23/23 12:00 CBC Auto Diff [Complete Blood Count AUTO DIFF] Stat CMP [Comprehensive Metabolic Panel] Stat 07/23/23 12:31 EKG-12 Lead Stat 07/23/23 14:55 BMP [Basic Metabolic Panel] Stat Discontinued Medications Sodium Chloride (Normal Saline 0.9%) 1,000 mls @ 1,000 mls/hr IV BOLUS ONE Stop: 07/23/23 13:37 Last Infusion: 07/23/23 14:58 Dose: Infused Documented By: Admin: 07/23/23 13:49 Dose: 1,000 mls/hr Documented By: MARYANNE Insulin Human Regular (Insulin Regular 100 Unit/Ml 3 Ml Vial) 2 unit IV NOW ONE Stop: 07/23/23 13:23 Last Admin: 07/23/23 13:46 Dose: 2 unit Documented By: MARYANNE Co-signed By: SCOTT Vital Signs Vital signs: Vital Signs - 8 hr 07/23/23 11:55 07/23/23 11:58 07/23/23 11:58 Temperature 99.0 F Pulse Rate 88 88 Respiratory Rate 16 Blood Pressure 188/97 H 190/101 H Pulse Oximetry 97 97 Oxygen Delivery Method Room Air 07/23/23 12:00 07/23/23 12:00 07/23/23 12:30 Temperature Pulse Rate 86 Respiratory Rate 12 Blood Pressure 188/97 H 175/94 H Pulse Oximetry 99 Oxygen Delivery Method 07/23/23 12:30 07/23/23 12:41 07/23/23 12:41 Temperature Pulse Rate 84 84 Respiratory Rate 10 L 13 Blood Pressure 185/98 H Pulse Oximetry 98 99 Oxygen Delivery Method Room Air 07/23/23 13:00 Temperature Pulse Rate 83 Respiratory Rate 11 L Blood Pressure Pulse Oximetry 97 Oxygen Delivery Method Room Air MDM - Recheck/Abnormal Lab/Rx Lab Data 07/23/23 12:00 07/23/23 14:55 Labs: Lab Results 07/23/23 07/23/23 Range/Units 12:00 14:55 WBC 12.2 H (4.5-11.0) X10^3/uL RBC 4.78 (4.0-5.2) X10^6/uL Hgb 13.5 (12.0-16.0) g/dL Hct 42.1 (36-46) % MCV 88.1 (80-100) fL MCH 28.3 (26-34) PG MCHC 32.1 (30-36) % RDW 14.0 (11.6-14.8) % Plt Count 382 (150-400) X10^3/uL Neut % (Auto) 83.2 H (50-75) % Lymph % (Auto) 10.6 L (25-40) % Lamar % (Auto) 6.0 (3-14) % Eos % (Auto) 0.0 L (2-4) % Baso % (Auto) 0.2 (0-2) % Neut # (Auto) 75039 H (0849-6229) /uL Lymph # (Auto) 1300 (1204-1862) /uL Lamar # (Auto) 700 (0-900) /uL Eos # (Auto) 0 (0-450) /uL Baso # (Auto) 0 (0-100) /uL Sodium 132 L 133 L (137-145) mmol/L Potassium 6.2 H 5.2 H (3.4-5.1) mmol/L Chloride 107 111 H (98-107) mmol/L Carbon Dioxide 19 L 19 L (22-32) mmol/L BUN 35 H 35 H (7-17) mg/dL Creatinine 2.01 H 1.89 H (0.52-1.04) mg/dL Estimated GFR 33 L 36 L (>60) mL/min BUN/Creatinine Ratio 17.4 18.5 (6-22) Glucose 398 H D 217 H D (70-100) mg/dL Calcium 8.9 8.0 L (8.4-10.2) mg/dL Total Bilirubin 0.3 (0.2-1.3) mg/dL AST 19 (14-36) IU/L ALT 25 (<35) IU/L Alkaline Phosphatase 151 H (38-126) U/L Total Protein 6.5 (6.3-8.2) g/dL Albumin 3.2 L (3.5-5.0) g/dL Globulin 3.3 (1.7-4.1) g/dL Albumin/Globulin Ratio 1.0 (1.0-2.8) ECG Data Attestation: I personally reviewed and interpreted this ECG as follows: Prior ECG tracings: available for review Interpretation: Sinus rhythm rate 84 interval 40 QRS 74 QTC 4 27 slightly peaked T-waves V2 and V3 no ischemic changes slightly different from previous in May Narrative Medical decision making narrative: Patient 33-year-old female multiple comorbidities including non controlled type 1 diabetes CHF ongoing left corneal ulcer presents today my request for hyperkalemia. Blood work confirms persistent hyperkalemia with a potassium of 6.2. Sodium 132 chloride 107 carbon dioxide 19 BUN 35 creatinine 2.0 previously 1.49, glucose 398, anion gap 6.0 Repeat potassium is 5.2 with repeat creatinine 1.8 EKG reviewed mildly peaked T-waves Patient has follow-up for her corneal ulcer with a specialist. Her potassium has improved recommend that she have follow-up blood work later this week. She was randomly complaining of some right upper quadrant pain she has previously had cholecystectomy she has no elevated bilirubin or liver enzymes she has previously had CTs. At this time supportive care only. Discharge Plan Departure Patient Disposition: Home Clinical Impression: Acute hyperkalemia Instructions: Hyperkalemia Activity Restrictions/Additional Instructions: *You have been diagnosed with hyperkalemia *What to do: Today you did have elevated potassium it resolved with fluids. You must stay hydrated. Be sure to take your insulin. Follow-up with ophthalmology as previously arranged *Continue to take medications as directed *Follow up with your primary care provider in 2-3 days or call [phone] *Return to ER if you should have increasing pain weakness nausea vomiting or any new, worsening or concerning symptoms Prescriptions: No Action glucose 4 gram tablet,chewable 4 gram PO Q15M PRN (Reason: hypoglycemia) Qty: 30 0RF Rx Instructions: until response Glucagon Emergency Kit (human) 1 mg recon soln 1 mg subcut DIRECTED ondansetron 4 mg tablet,disintegrating 4 mg PO Q8H PRN (Reason: nausea and vomiting) Qty: 10 0RF atropine 1 % drops 1 drp ophthalmic (eye) BEDTIME Patient Comments: INSTILL ONE DROP INTO BOTH EYES ONCE DAILY Rx Instructions: L eye only Simbrinza 1-0.2 % drops,suspension 1 drp ophthalmic (eye) BID Patient Comments: INSTILL ONE DROP INTO BOTH EYES TWO TIMES DAILY latanoprost 0.005 % drops 1 drp ophthalmic (eye) BEDTIME Patient Comments: INSTILL ONE DROP INTO BOTH EYES EVERY EVENING timolol maleate 0.5 % drops 1 drp ophthalmic (eye) BID Patient Comments: INSTILL ONE DROP INTO BOTH EYES TWO TIMES DAILY. insulin lispro [Humalog U-100 Insulin] 100 unit/mL Solution See Rx Instructions .ROUTE .COMPLEX Rx Instructions: pt unsure of dosage torsemide 20 mg tablet 20 mg PO DAILY Qty: 30 0RF azithromycin 250 mg tablet See Rx Instructions .ROUTE .COMPLEX Qty: 6 0RF Rx Instructions: For 250 mg dose pack: take 500 mg today (day 1), then 250 mg for 4 days (days 2-5) hydrocodone-acetaminophen 5-325 mg tablet 1 tab PO Q4-6H PRN (Reason: pain) Qty: 10 0RF furosemide 20 mg tablet 20 mg PO DAILY Qty: 10 0RF tramadol 50 mg tablet 50 mg PO TID PRN (Reason: pain) 3 Days Qty: 10 0RF diphenhydramine HCl 50 mg Capsule 50 mg PO BEDTIME PRN (Reason: Sleep) Rx Instructions: for itching and sleep pantoprazole 40 mg tablet,delayed release (DR/EC) 40 mg PO BEDTIME Patient Comments: TAKE ONE TABLET BY MOUTH ONE TIME DAILY insulin degludec [Tresiba FlexTouch U-200] 200 unit/mL (3 mL) insulin pen See Rx Instructions .ROUTE .COMPLEX Rx Instructions: 20u in the am 6units at bedtime sennosides [senna] 8.6 mg Tablet 8.6 mg PO PRN PRN (Reason: Constipation) acetaminophen 325 mg Tablet 975 mg PO Q8H Qty: 30 0RF naloxone [Narcan] 4 mg/actuation spray,non-aerosol 1 spray intranasal Q2M Qty: 2 0RF Rx Instructions: spray 1 dose into ONE nostril; alternate nostrils w each dose until help arrives ondansetron 4 mg tablet,disintegrating 4 mg PO Q8H PRN (Reason: nausea and vomiting) Qty: 15 0RF promethazine 25 mg tablet 25 mg PO Q6H PRN (Reason: nausea and vomiting) Qty: 30 0RF prednisone 20 mg tablet 20 mg PO DAILY Qty: 5 0RF Referrals: Maria Ines Limon DO [Primary Care Provider] - Stand Alone Forms: Patient Portal/API
[2023-07-23 12:41] VITALS: BP 185/98; PULSE 84; RESP 13; O2SAT 99
[2023-07-23 12:43] LABS: Add Manual Diff / Slide Review NO; Basophils Absolute Auto 0 /uL (0-100); Basophils Percent Auto 0.2 % (0-2); Eosinophils Absolute Auto 0 /uL (0-450); Hematocrit 42.1 % (36-46); Hemoglobin 13.5 g/dL (12.0-16.0); Lymphocytes Absolute Auto 1300 /uL (1100-4500); Lymphocytes Percent Auto 10.6 % (25-40); Mean Corpuscular HGB Conc 32.1 % (30-36); Mean Corpuscular Hemoglobin 28.3 PG (26-34); Mean Corpuscular Volume 88.1 fL (80-100); Monocytes Absolute Auto 700 /uL (0-900); Neutrophils Absolute Auto 10100 /uL (1500-7000); Neutrophils Percent Auto 83.2 % (50-75); Platelet Count 382 X10^3/uL (150-400); Red Blood Cell Count 4.78 X10^6/uL (4.0-5.2); White Blood Cell Count 12.2 X10^3/uL (4.5-11.0)
[2023-07-23] MEDS: SODIUM ZIRCONIUM CYCLOSILICATE 10 GM POWD.PACK PO (12:44)
[2023-07-23 13:00] VITALS: PULSE 83; RESP 11; O2SAT 97
--- NOTE | 2023-07-23 13:19 | PC.NURSE ---
2 unsuccessful US iv attempts made.
[2023-07-23] MEDS: INSULIN REGULAR 100 UNIT/ML 3 ML VIAL IV (13:46)
[2023-07-23] MEDS: SODIUM CHLORIDE 0.9% 1,000 ML 1000 ML IV (13:49)
[2023-07-23 15:20] LABS: BUN Creatinine Ratio 18.5 (6-22); Blood Urea Nitrogen 35 mg/dL (7-17); Carbon Dioxide 19 mmol/L (22-32); Chloride 111 mmol/L (98-107); Estimated Glomerular Filt Rate 36 mL/min (>60); Glucose 217 mg/dL (70-100); HEMOLYSIS < 15 (0-50); Potassium 5.2 mmol/L (3.4-5.1); Sodium 133 mmol/L (137-145)
== END 2023-07-23 15:57 | disposition home or self-care (01) ==
PROVIDERS: Emergency Provider Emergency Medicine; PCP Student in an Organized Health Care Education/Training Program
DX: E87.5 Hyperkalemia (principal); E10.9 Type 1 diabetes mellitus without complications
CPT/HCPCS: 36415; 80048; 80053; 85025; 93005; 93010; 96374; 99284

== ENCOUNTER → 2023-08-09 13:33 | Outpatient (CLI) | payer OTHER, MEDICAID, SELFPAY ==
[2022-07-02 16:19] VITALS: BMI 20.8
[2023-08-09 14:37] LABS: Albumin 2.9 g/dL (3.5-5.0); Blood Urea Nitrogen 30 mg/dL (7-17); Calcium 8.6 mg/dL (8.4-10.2); Carbon Dioxide 22 mmol/L (22-32); Chloride 111 mmol/L (98-107); Estimated Glomerular Filt Rate 42 mL/min (>60); Glucose 281 mg/dL (70-100); HEMOLYSIS < 15 (0-50); Phosphorous 4.9 mg/dL (2.5-4.5); Potassium 5.6 mmol/L (3.4-5.1); Sodium 134 mmol/L (137-145)
== END ==
PROVIDERS: PCP Student in an Organized Health Care Education/Training Program; Referring Provider Student in an Organized Health Care Education/Training Program; Visit Provider Student in an Organized Health Care Education/Training Program
DX: E87.5 Hyperkalemia (principal)
CPT/HCPCS: 36415; 80069

== ENCOUNTER 2023-08-16 11:40 | Emergency (ER) | payer OTHER, MEDICAID, SELFPAY ==
[2022-07-02 16:19] VITALS: BMI 20.8
[2023-08-16 11:55] VITALS: BP 188/99; PULSE 79; RESP 20; TEMP 36.6; O2SAT 98; BMI 23.6
--- NOTE | 2023-08-16 12:07 | ED_ITS ---
HPI - General Adult General Chief complaint: Dental/Oral Stated complaint: POSS infection of jaw RT side Time Seen by Provider: 08/16/23 11:51 Source: patient and family Mode of arrival: Wheelchair History of Present Illness HPI narrative: Measured as a 33-year-old female. Well known to me. She has a history of being a very brittle diabetic. She is here for evaluation of right-sided lower jaw/tooth discomfort. States the symptoms really started yesterday. Swelling started today. She does have a cracked tooth on the right lower jaw that is in the workup of being seen by specialist so that it can be surgically removed. She has been trying anti-inflammatories without much improvement. Related Data Home Medications Medication Instructions Recorded Confirmed glucagon (human recombinant) 1 mg 1 mg SUBCUT DIRECTED 02/16/19 07/02/22 solution for injection (Glucagon Emergency Kit) diphenhydramine HCl 50 mg capsule 50 mg PO BEDTIME PRN Sleep 09/29/20 07/02/22 insulin degludec 200 unit/mL (3 See Rx Instructions .Route .COMPLEX 11/13/21 07/02/22 mL) subcutaneous pen (Tresiba FlexTouch U-200 insulin) pantoprazole 40 mg tablet,delayed 40 mg PO BEDTIME 11/13/21 07/02/22 release sennosides 8.6 mg tablet (senna) 8.6 mg PO PRN PRN Constipation 11/13/21 07/02/22 atropine 1 % eye drops 1 drp ophthalmic (eye) BEDTIME 07/02/22 07/02/22 brinzolamide 1 %-brimonidine 0.2 % 1 drp ophthalmic (eye) BID 07/02/22 07/02/22 eye drops,suspension (Simbrinza) insulin lispro 100 unit/mL See Rx Instructions .Route .COMPLEX 07/02/22 07/04/22 subcutaneous solution (Humalog U-100 Insulin) latanoprost 0.005 % eye drops 1 drp ophthalmic (eye) BEDTIME 07/02/22 07/02/22 timolol maleate 0.5 % eye drops 1 drp ophthalmic (eye) BID 07/02/22 07/02/22 Previous Rx's Medication Instructions Recorded glucose 4 gram chewable tablet 4 gram PO Q15M PRN hypoglycemia 12/12/18 #30 tabs ondansetron 4 mg disintegrating 4 mg PO Q8H PRN nausea and 11/08/21 tablet vomiting #10 tabs acetaminophen 325 mg tablet 975 mg (3 x 325 mg) PO Q8H #30 tabs 11/18/21 naloxone 4 mg/actuation nasal 1 spray intranasal Q2M #2 ea 11/18/21 spray (Narcan) ondansetron 4 mg disintegrating 4 mg PO Q8H PRN nausea and 03/18/22 tablet vomiting #15 tabs torsemide 20 mg tablet 20 mg PO DAILY #30 tabs 07/05/22 azithromycin 250 mg tablet See Rx Instructions PO .COMPLEX #6 09/13/22 tabs hydrocodone 5 mg-acetaminophen 325 1 tab PO Q4-6H PRN pain #10 tabs 09/13/22 mg tablet promethazine 25 mg tablet 25 mg PO Q6H PRN nausea and 12/11/22 vomiting #30 tabs prednisone 20 mg tablet 20 mg PO DAILY #5 tabs 05/27/23 furosemide 20 mg tablet 20 mg PO DAILY #10 tabs 05/31/23 hydrocodone 5 mg-acetaminophen 325 1 tab PO Q8H PRN pain #6 tabs 08/16/23 mg tablet penicillin V potassium 500 mg 500 mg PO QID 7 days #28 tabs 08/16/23 tablet Allergies Allergy/AdvReac Type Severity Reaction Status Date / Time abdalla [ABDALLA] Allergy Intermediate Hives, Verified 07/23/23 12:05 pruritus iodine [IODINE] Allergy Intermediate rash, itchy Verified 07/23/23 12:05 morphine Allergy Intermediate Difficulty Verified 07/23/23 12:05 Breathing shellfish derived Allergy Intermediate rash Verified 07/23/23 12:05 [SHELLFISH DERIVED] adhesive [ADHESIVE] Allergy Unknown tape Verified 07/23/23 12:05 latex [LATEX] Allergy Unknown Hives Verified 07/23/23 12:05 Review of Systems ENT Ears, Nose, Mouth, and Throat: Reports system reviewed and no additional complaints, except as documented Patient History Medical History Noncompliance w/medication treatment due to intermit use of medication Irregular menstrual cycle Migraine headache History of pyelonephritis DKA (diabetic ketoacidoses) Nephrolithiasis Type 1 diabetes mellitus Surgical History Status post cholecystectomy Hx of cataract surgery Hx of local excision of skin lesion [place] teeth extracted Status post laser lithotripsy of ureteral calculus History of ureter stent Family History Father In good health Mother Cardiac disease Social History details: Engaged household members: family Smoking Status: Never smoker alcohol intake: never Smoking Status: Never smoker alcohol intake frequency: holidays/special occasions only Substance Use Type: does not use Exam Initial Vital Signs Initial Vital Signs: Vital Signs Temperature 97.8 F 08/16/23 11:55 Pulse Rate 79 08/16/23 11:55 Respiratory Rate 20 08/16/23 11:55 Blood Pressure 188/99 H 08/16/23 11:55 Pulse Oximetry 98 08/16/23 11:55 Oxygen Delivery Method Room Air 08/16/23 11:55 HENMT Mouth: lip normal and tongue normal Teeth and gingiva: fair dentition and other (No intraoral abscess noted) HENMT Other: Mild discomfort along the right mandibular region Course Vital Signs Vital signs: Vital Signs - 8 hr 08/16/23 11:55 Temperature 97.8 F Pulse Rate 79 Respiratory Rate 20 Blood Pressure 188/99 H Pulse Oximetry 98 Oxygen Delivery Method Room Air Medical Decision Making [facility] Narrative Medical decision making narrative: No defined abscess noted on the exam today. Patient is afebrile. Tolerating oral intake. Is actually well-appearing. Will discharge home on antibiotics and pain medication. But patient and mother were given return precautions. They expressed understanding and agreement. Discharge Plan Departure Patient Disposition: Home Clinical Impression: Dental infection Instructions: DI for Dental Pain Activity Restrictions/Additional Instructions: Continue to take all of your medications as directed to include the medicines that were prescribed today. You are going to need follow-up with a dentist for definitive treatment. Return to the emergency department for new symptoms. Prescriptions: New penicillin V potassium 500 mg tablet 500 mg PO QID 7 Days Qty: 28 0RF hydrocodone-acetaminophen 5-325 mg tablet 1 tab PO Q8H PRN (Reason: pain) Qty: 6 0RF No Action glucose 4 gram tablet,chewable 4 gram PO Q15M PRN (Reason: hypoglycemia) Qty: 30 0RF Rx Instructions: until response Glucagon Emergency Kit (human) 1 mg recon soln 1 mg subcut DIRECTED ondansetron 4 mg tablet,disintegrating 4 mg PO Q8H PRN (Reason: nausea and vomiting) Qty: 10 0RF atropine 1 % drops 1 drp ophthalmic (eye) BEDTIME Patient Comments: INSTILL ONE DROP INTO BOTH EYES ONCE DAILY Rx Instructions: L eye only Simbrinza 1-0.2 % drops,suspension 1 drp ophthalmic (eye) BID Patient Comments: INSTILL ONE DROP INTO BOTH EYES TWO TIMES DAILY latanoprost 0.005 % drops 1 drp ophthalmic (eye) BEDTIME Patient Comments: INSTILL ONE DROP INTO BOTH EYES EVERY EVENING timolol maleate 0.5 % drops 1 drp ophthalmic (eye) BID Patient Comments: INSTILL ONE DROP INTO BOTH EYES TWO TIMES DAILY. insulin lispro [Humalog U-100 Insulin] 100 unit/mL Solution See Rx Instructions .ROUTE .COMPLEX Rx Instructions: pt unsure of dosage torsemide 20 mg tablet 20 mg PO DAILY Qty: 30 0RF azithromycin 250 mg tablet See Rx Instructions .ROUTE .COMPLEX Qty: 6 0RF Rx Instructions: For 250 mg dose pack: take 500 mg today (day 1), then 250 mg for 4 days (days 2-5) hydrocodone-acetaminophen 5-325 mg tablet 1 tab PO Q4-6H PRN (Reason: pain) Qty: 10 0RF furosemide 20 mg tablet 20 mg PO DAILY Qty: 10 0RF diphenhydramine HCl 50 mg Capsule 50 mg PO BEDTIME PRN (Reason: Sleep) Rx Instructions: for itching and sleep pantoprazole 40 mg tablet,delayed release (DR/EC) 40 mg PO BEDTIME Patient Comments: TAKE ONE TABLET BY MOUTH ONE TIME DAILY insulin degludec [Tresiba FlexTouch U-200] 200 unit/mL (3 mL) insulin pen See Rx Instructions .ROUTE .COMPLEX Rx Instructions: 20u in the am 6units at bedtime sennosides [senna] 8.6 mg Tablet 8.6 mg PO PRN PRN (Reason: Constipation) acetaminophen 325 mg Tablet 975 mg PO Q8H Qty: 30 0RF naloxone [Narcan] 4 mg/actuation spray,non-aerosol 1 spray intranasal Q2M Qty: 2 0RF Rx Instructions: spray 1 dose into ONE nostril; alternate nostrils w each dose until help arrives ondansetron 4 mg tablet,disintegrating 4 mg PO Q8H PRN (Reason: nausea and vomiting) Qty: 15 0RF promethazine 25 mg tablet 25 mg PO Q6H PRN (Reason: nausea and vomiting) Qty: 30 0RF prednisone 20 mg tablet 20 mg PO DAILY Qty: 5 0RF Referrals: Maria Ines Limon DO [Primary Care Provider] - Stand Alone Forms: Patient Portal/API
== END 2023-08-16 12:23 | disposition home or self-care (01) ==
PROVIDERS: Emergency Provider Emergency Medicine; PCP Student in an Organized Health Care Education/Training Program
DX: K04.7 Periapical abscess without sinus (principal)
CPT/HCPCS: 99281; 99282

== ENCOUNTER 2023-10-13 14:30 | Emergency (ER) | payer OTHER, MEDICAID, SELFPAY ==
[2022-07-02 16:19] VITALS: BMI 20.8
[2023-10-13 14:34] VITALS: BP 127/77; PULSE 89; RESP 16; TEMP 37; O2SAT 99; BMI 22.6
== END 2023-10-13 17:00 | disposition left against medical advice (07) ==
PROVIDERS: Emergency Provider Emergency Medicine; PCP Student in an Organized Health Care Education/Training Program
CPT/HCPCS: 99281

== ENCOUNTER 2023-10-20 07:38 | Observation (INO) | payer OTHER, MEDICAID, SELFPAY ==
[2022-07-02 16:19] VITALS: BMI 20.8
[2023-10-20] VITALS (39 sets, daily range): BP systolic 113–150; BP diastolic 61–89; PULSE 104–120; RESP 7–24; TEMP 36.7–37.3; O2SAT 93–99; BMI 26.4
--- NOTE | 2023-10-20 08:24 | ED_ITS ---
HPI - General Adult General Chief complaint: Abdominal Pain Stated complaint: DIABETES ISSUE BLOOD SUGAR HIGH NAUSEOUS Time Seen by Provider: 10/20/23 08:24 Source: patient, family, RN notes reviewed and old records reviewed Mode of arrival: Wheelchair Limitations: no limitations History of Present Illness HPI narrative: [age] female history of insulin-dependent diabetes, multiple complications including blindness, CKD who presents with complaint of nausea, abdominal pain chest discomfort. Patient states he has had several days of symptoms. No reports of fevers. She states she has not been vomiting. She has been taking her home antiemetics she has been nauseous but not vomiting. States she does have little bit of chest discomfort, denies any shortness of breath. She has had abdominal pain consistent with prior visits. She states she has had some mild diarrhea. No black or bloody stools. Denies any urinary symptoms. She states her face feels little bit puffy and swollen, she does have a history of CHF she denies swelling in her other extremities. She notes that about 2 weeks ago her medications were adjusted with water pill likely being spironolactone being stopped any renal protective medication being started. She does not know the exact names of these medications. Her mom thinks the new medication is hydrochlorothiazide. Patient states that was about 2 weeks ago she has not had any other changes recently that she thinks would have caused her symptoms. She notes sugars has been 2 to 300s she is normally in the 100 range, did take her long-acting insulin 14 units and short-acting 2 units at 6:30 a.m.. She noted to nursing but not myself that she has been amoxicillin for the past week for a dental infection. No complaints of dental pain currently. Related Data Home Medications Medication Instructions Recorded Confirmed glucagon (human recombinant) 1 mg 1 mg SUBCUT DIRECTED 02/16/19 07/02/22 solution for injection (Glucagon Emergency Kit) diphenhydramine HCl 50 mg capsule 50 mg PO BEDTIME PRN Sleep 09/29/20 10/20/23 insulin degludec 200 unit/mL (3 See Rx Instructions .Route .COMPLEX 11/13/21 07/02/22 mL) subcutaneous pen (Tresiba FlexTouch U-200 insulin) sennosides 8.6 mg tablet (senna) 8.6 mg PO PRN PRN Constipation 11/13/21 10/20/23 atropine 1 % eye drops 1 drp ophthalmic (eye) BEDTIME 07/02/22 10/20/23 insulin lispro 100 unit/mL See Rx Instructions .Route .COMPLEX 07/02/22 07/04/22 subcutaneous solution (Humalog U-100 Insulin) latanoprost 0.005 % eye drops 1 drp ophthalmic (eye) BEDTIME 07/02/22 10/20/23 amlodipine 5 mg tablet 5 mg PO DAILY 10/20/23 10/20/23 atropine 1 % eye drops 1 drp EYE-LEFT BID 10/20/23 10/20/23 brimonidine 0.2 % eye drops 1 drp EYE-BOTH 3XD 10/20/23 10/20/23 insulin aspart U-100 100 unit/mL 0 - 20 unit SUBCUT 3XD 10/20/23 10/20/23 (3 mL) subcutaneous pen (Novolog FlexPen U-100 Insulin aspart) methocarbamol 500 mg tablet 500 mg PO 4XD PRN muscle spasm 10/20/23 10/20/23 metoprolol succinate 50 mg 50 mg PO DAILY 10/20/23 10/20/23 tablet,extended release 24 hr moxifloxacin 0.5 % eye drops 1 drp EYE-LEFT 4XD 10/20/23 10/20/23 oxycodone 5 mg tablet 5 mg Q4H PRN Pain (Scale Score 4-6) 10/20/23 10/20/23 rosuvastatin 20 mg tablet 20 mg PO DAILY 10/20/23 10/20/23 spironolactone 25 mg tablet 25 mg PO ONCE PM 10/20/23 10/20/23 tramadol 50 mg tablet 50 mg PO 3XD PRN pain 10/20/23 10/20/23 Previous Rx's Medication Instructions Recorded glucose 4 gram chewable tablet 4 gram PO Q15M PRN hypoglycemia 12/12/18 #30 tabs ondansetron 4 mg disintegrating 4 mg PO Q8H PRN nausea and 11/08/21 tablet vomiting #10 tabs acetaminophen 325 mg tablet 975 mg (3 x 325 mg) PO Q8H #30 tabs 11/18/21 naloxone 4 mg/actuation nasal 1 spray intranasal Q2M #2 ea 11/18/21 spray (Narcan) hydrocodone 5 mg-acetaminophen 325 1 tab PO Q4-6H PRN pain #10 tabs 05/25/23 mg tablet Allergies Allergy/AdvReac Type Severity Reaction Status Date / Time abdalla [ABDALLA] Allergy Intermediate Hives, Verified 10/20/23 07:58 pruritus iodine [IODINE] Allergy Intermediate rash, itchy Verified 10/20/23 07:58 morphine Allergy Intermediate Difficulty Verified 10/20/23 07:58 Breathing shellfish derived Allergy Intermediate rash Verified 10/20/23 07:58 [SHELLFISH DERIVED] adhesive [ADHESIVE] Allergy Unknown tape Verified 10/20/23 07:58 latex [LATEX] Allergy Unknown Hives Verified 10/20/23 07:58 Review of Systems Review of Systems ROS Unobtainable: All systems reviewed & are unremarkable except as noted in HPI and below Patient History Medical History Noncompliance w/medication treatment due to intermit use of medication Irregular menstrual cycle Migraine headache History of pyelonephritis DKA (diabetic ketoacidoses) Nephrolithiasis Type 1 diabetes mellitus Surgical History Status post cholecystectomy Hx of cataract surgery Hx of local excision of skin lesion [place] teeth extracted Status post laser lithotripsy of ureteral calculus History of ureter stent Family History Father In good health Mother Cardiac disease Social History details: Engaged household members: family Smoking Status: Never smoker alcohol intake: never Smoking Status: Never smoker alcohol intake frequency: holidays/special occasions only Substance Use Type: does not use Exam Narrative Exam Narrative: GENERAL: Alert and oriented x three, male in mild distress. HEENT: Head normocephalic, atraumatic, EOMI, pupils reactive, face symmetric, moist mucous membranes NECK: Supple, full range of motion CARDIOVASCULAR: Tachycardic but regular rate and rhythm without murmurs, rubs or gallops. No edema bilateral upper or lower extremities. RESPIRATORY: Breath sounds equal bilaterally, no wheezes rales or rhonchi. No tachypnea or accessory muscle use. ABDOMEN: Soft, generalized tenderness. Normoactive bowel sounds all 4 quadrants. No guarding or rebound, rigidity, no mass : No CVA tenderness EXTREMITIES: Normal range of motion, no clubbing or edema. Neurovascularly intact NEUROLOGICAL: Cranial nerves II through XII grossly intact. Moving all extremities SKIN: Warm, dry, no petechiae, no rashes or lesions, patient has abrasions on anterior left calvillo, has a brace on her right ankle. Initial Vital Signs Initial Vital Signs: Vital Signs Pulse Rate 120 H 10/20/23 07:48 Blood Pressure 120/61 10/20/23 07:48 Pulse Oximetry 97 10/20/23 07:48 Course Orders Ordered: ED Orders 10/20/23 10:56 Urine Culture Stat Urine Microscopic Stat 10/20/23 11:45 VBG [Venous Blood Gas] Stat 10/20/23 11:50 BMP [Basic Metabolic Panel] Stat Acetaminophen (Acetaminophen 325 Mg Tablet) 650 mg PO Q6H PRN PRN Reason: Fever/Mild Pain (1-3) Amlodipine Besylate (Amlodipine 5 Mg Tablet) 5 mg PO DAILY BLAISE Atorvastatin Calcium (Atorvastatin 20 Mg Tablet) 40 mg PO DAILY BLAISE Atropine Sulfate (Atropine 1% Ophth) 1 drops EYE-LEFT BID BLAISE Brimonidine Tartrate (Brimonidine 0.2% Ophth 5 Ml) 1 drops EYE-BOTH TID BLAISE Last Admin: 10/20/23 17:49 Dose: Not Given Documented By: SAMI Diphenhydramine HCl (Diphenhydramine 25 Mg Tablet) 50 mg PO BEDTIME PRN PRN Reason: Sleep Famotidine (Famotidine 20 Mg/2 Ml Vial) 20 mg IV DAILY BLAISE Sodium Chloride (Normal Saline 0.9%) 1,000 mls @ 150 mls/hr IV CONT BLAISE Last Infusion: 10/20/23 13:47 Dose: 0 mls/hr Documented By: Admin: 10/20/23 12:13 Dose: 150 mls/hr Documented By: DEBRA Dextrose/Sodium Chloride (Dextrose 5%-0.9% Ns) 1,000 mls @ 100 mls/hr IV CONT BLAISE Last Infusion: 10/20/23 17:30 Dose: 0 mls/hr Documented By: Infusion: 10/20/23 13:45 Dose: 100 mls/hr Documented By: Admin: 10/20/23 13:11 Dose: 100 mls/hr Documented By: DEBRA INSULIN DRIP PREMIX (Myxredlin Drip Premix) 100 unit in 100 mls @ 2 mls/hr IV TITRATE BLAISE; Protocol Last Titration: 10/20/23 16:00 Dose: 0 mls/hr, 0 mls/hr Documented By: SAMI Co-signed By: DIANE Admin: 10/20/23 13:47 Dose: 2 mls/hr, 2 mls/hr Documented By: SAMI Co-signed By: DIANE Dextrose ([email or web address]) 100 mls @ 1,200 mls/hr IV PRN PRN PRN Reason: Hypoglycemia Sodium Bicarbonate 150 meq/ (Dextrose) 1,150 mls @ 75 mls/hr IV CONT BLAISE Last Admin: 10/20/23 17:29 Dose: 75 mls/hr Documented By: SAMI Metoprolol Succinate (Metoprolol Er 50 Mg Tablet) 50 mg PO DAILY BLAISE Naloxone HCl (Naloxone 0.4 Mg/Ml Vial) 0.2 mg IV Q2MIN PRN PRN Reason: Opiate Reversal Ofloxacin (Ofloxacin 0.3% Ophth 5 Ml) 1 drops EYE-LEFT QID [facility] Last Admin: 10/20/23 18:07 Dose: Not Given Documented By: SAMI Ondansetron HCl (Ondansetron 4 Mg/2 Ml Inj) 4 mg IV Q4HR PRN PRN Reason: Nausea And Vomiting Oxycodone HCl (Oxycodone Ir 5 Mg Tablet) 5 mg PO Q4H PRN PRN Reason: Pain (Scale Score 4-6) Last Admin: 10/20/23 17:49 Dose: 5 mg Documented By: SAMI Discontinued Medications Atropine Sulfate (Atropine 1% Ophth) drops EYE-LEFT BEDTIME BLAISE Hydromorphone HCl (Hydromorphone 0.5 Mg Inj) 0.5 mg IV NOW ONE Stop: 10/20/23 08:38 Last Admin: 10/20/23 08:59 Dose: 0.5 mg Documented By: Hydromorphone HCl (Hydromorphone 0.5 Mg Inj) 0.5 mg IV NOW ONE Stop: 10/20/23 11:21 Last Admin: 10/20/23 11:24 Dose: 0.5 mg Documented By: DBERA Sodium Chloride (Normal Saline 0.9%) 1,000 mls @ 500 mls/hr IV BOLUS ONE Stop: 10/20/23 10:58 Last Infusion: 10/20/23 10:35 Dose: Infused Documented By: Admin: 10/20/23 08:40 Dose: 500 mls/hr Documented By: SPF Sodium Chloride (Normal Saline 0.9%) 1,000 mls @ 1,000 mls/hr IV BOLUS ONE Stop: 10/20/23 11:14 Last Infusion: 10/20/23 11:38 Dose: Infused Documented By: Admin: 10/20/23 10:40 Dose: 1,000 mls/hr Documented By: SPF Piperacillin Sod/Tazobactam (Sod 4.5 gm/ Sodium Chloride) 100 mls @ 200 mls/hr IV NOW ONE Stop: 10/20/23 11:59 Last Infusion: 10/20/23 12:58 Dose: Infused Documented By: Admin: 10/20/23 12:13 Dose: 200 mls/hr Documented By: DBERA Ondansetron HCl (Ondansetron 4 Mg/2 Ml Inj) 4 mg IV NOW PRN PRN Reason: Nausea And Vomiting Last Admin: 10/20/23 08:34 Dose: 4 mg Documented By: Vital Signs Vital signs: Vital Signs - 8 hr 10/20/23 11:00 10/20/23 11:00 10/20/23 11:30 Pulse Rate 118 H Respiratory Rate 11 L Blood Pressure 150/75 H 143/73 H Pulse Oximetry 97 Oxygen Delivery Method Room Air 10/20/23 11:30 10/20/23 12:00 10/20/23 12:00 Pulse Rate 114 H 113 H Respiratory Rate 12 12 Blood Pressure 120/63 Pulse Oximetry 96 95 Oxygen Delivery Method Room Air Room Air 10/20/23 12:20 10/20/23 12:20 10/20/23 12:30 Pulse Rate 113 H 112 H Respiratory Rate 9 L 13 Blood Pressure 126/63 Pulse Oximetry 94 94 Oxygen Delivery Method 10/20/23 12:40 10/20/23 12:40 Pulse Rate 110 H Respiratory Rate 10 L Blood Pressure 113/63 Pulse Oximetry 93 Oxygen Delivery Method Room Air Medical Decision Making Lab Data 10/20/23 08:12 10/20/23 14:57 Labs: Lab Results 10/20/23 10/20/23 10/20/23 Range/Units 08:12 08:18 08:20 WBC 9.7 (4.5-11.0) X10^3/uL RBC 4.15 (4.0-5.2) X10^6/uL Hgb 11.8 L (12.0-16.0) g/dL Hct 36.8 (36-46) % MCV 88.6 (80-100) fL MCH 28.6 (26-34) PG MCHC 32.2 (30-36) % RDW 13.4 (11.6-14.8) % Plt Count 460 H (150-400) X10^3/uL Neut % (Auto) 72.4 (50-75) % Lymph % (Auto) 18.4 L (25-40) % [place] % (Auto) 7.2 (3-14) % Eos % (Auto) 1.1 L (2-4) % Baso % (Auto) 0.9 (0-2) % Neut # (Auto) 7000 (0795-3841) /uL Lymph # (Auto) 1800 (2652-0964) /uL [place] # (Auto) 700 (0-900) /uL Eos # (Auto) 100 (0-450) /uL Baso # (Auto) 100 (0-100) /uL PT 11.4 (9.4-12.5) SECONDS INR 1.0 (0.9-1.3) APTT 49 H (25.1-36.5) SECONDS VBG pH 7.18 L* (7.33-7.43) VBG pCO2 36.0 L (45-50) mmHg VBG pO2 50 H (35-45) mmHg VBG HCO3 13 L (24-28) mmol/L VBG Total CO2 13 L (24-29) mmol/L VBG O2 Saturation 76 H (70-75) % VBG Base Excess -14.1 L (0-4) mmol/L FiO2 21 Sodium 138 (137-145) mmol/L Potassium 4.7 (3.4-5.1) mmol/L Chloride 115 H (98-107) mmol/L Carbon Dioxide 12 L (22-32) mmol/L BUN 18 H (7-17) mg/dL Creatinine 2.23 H (0.52-1.04) mg/dL Estimated GFR 30 L (>60) mL/min BUN/Creatinine Ratio 8.1 (6-22) Glucose 169 H (70-100) mg/dL Lactate 0.8 (0.7-2.1) mmol/L Calcium 8.6 (8.4-10.2) mg/dL Total Bilirubin 0.5 (0.2-1.3) mg/dL AST 21 (14-36) IU/L ALT 19 (<35) IU/L Alkaline Phosphatase 168 H (38-126) U/L Total Creatine Kinase 188 H (30-135) U/L Troponin I < 0.012 (0.01-0.034) ng/mL NT-Pro-B Natriuret Pep 2260 H (<125) pg/mL Total Protein 7.1 (6.3-8.2) g/dL Albumin 3.6 (3.5-5.0) g/dL Globulin 3.5 (1.7-4.1) g/dL Albumin/Globulin Ratio 1.0 (1.0-2.8) Lipase 30 (23-300) U/L Procalcitonin 0.105 (<0.5) ng/mL Urine RBC (0-5/HPF) Urine WBC (0-5/HPF) Ur Squamous Epith Cells (0-5/HPF) Urine Bacteria (None) Urine Yeast (None) Ur Culture Indicated? Vol Urine Centrifuged Ketones 3.19 H (<0.27) mmol/L 10/20/23 10/20/23 10/20/23 Range/Units 10:56 11:45 11:50 WBC (4.5-11.0) X10^3/uL RBC (4.0-5.2) X10^6/uL Hgb (12.0-16.0) g/dL Hct (36-46) % MCV (80-100) fL MCH (26-34) PG MCHC (30-36) % RDW (11.6-14.8) % Plt Count (150-400) X10^3/uL Neut % (Auto) (50-75) % Lymph % (Auto) (25-40) % [place] % (Auto) (3-14) % Eos % (Auto) (2-4) % Baso % (Auto) (0-2) % Neut # (Auto) (8976-1905) /uL Lymph # (Auto) (9966-7328) /uL [place] # (Auto) (0-900) /uL Eos # (Auto) (0-450) /uL Baso # (Auto) (0-100) /uL PT (9.4-12.5) SECONDS INR (0.9-1.3) APTT (25.1-36.5) SECONDS VBG pH 7.13 L* (7.33-7.43) VBG pCO2 33.9 L (45-50) mmHg VBG pO2 88 H (35-45) mmHg VBG HCO3 11 L (24-28) mmol/L VBG Total CO2 11 L (24-29) mmol/L VBG O2 Saturation 93 H (70-75) % VBG Base Excess -16.6 L (0-4) mmol/L FiO2 21 Sodium 138 (137-145) mmol/L Potassium 4.3 (3.4-5.1) mmol/L Chloride 119 H (98-107) mmol/L Carbon Dioxide 10 L (22-32) mmol/L BUN 16 (7-17) mg/dL Creatinine 1.94 H (0.52-1.04) mg/dL Estimated GFR 35 L (>60) mL/min BUN/Creatinine Ratio 8.2 (6-22) Glucose 129 H (70-100) mg/dL Lactate (0.7-2.1) mmol/L Calcium 7.6 L (8.4-10.2) mg/dL Total Bilirubin (0.2-1.3) mg/dL AST (14-36) IU/L ALT (<35) IU/L Alkaline Phosphatase (38-126) U/L Total Creatine Kinase (30-135) U/L Troponin I (0.01-0.034) ng/mL NT-Pro-B Natriuret Pep (<125) pg/mL Total Protein (6.3-8.2) g/dL Albumin (3.5-5.0) g/dL Globulin (1.7-4.1) g/dL Albumin/Globulin Ratio (1.0-2.8) Lipase (23-300) U/L Procalcitonin (<0.5) ng/mL Urine RBC 0-1/hpf (0-5/HPF) Urine WBC 30-100/hpf H (0-5/HPF) Ur Squamous Epith Cells 10-30 /hpf H D (0-5/HPF) Urine Bacteria Moderate (10-30) H (None) Urine Yeast 30-100/hpf H (None) Ur Culture Indicated? Specimen cultured Vol Urine Centrifuged 10ml (spun) Ketones (<0.27) mmol/L Point of Care Testing Test Results Negative Glucose POC 127 Urine Dip Bedside Urine Glucose Negative Bedside Urine Bilirubin - Negative Bedside Urine Ketone ++ 40 Urine Specific [place] 1.015 Bedside Urine Occult Blood ++ Bedside Urine pH 6.0 Bedside Urine Protein +++ 300 Bedside Urine Urobilinogen - Negative Bedside Urine Nitrite - Negative Bedside Urine Leukocytes +/- 15 Esterase Point of care testing: Point of Care Testing Test Results Negative Glucose POC 127 Urine Dip Bedside Urine Glucose Negative Bedside Urine Bilirubin - Negative Bedside Urine Ketone ++ 40 Urine Specific [place] 1.015 Bedside Urine Occult Blood ++ Bedside Urine pH 6.0 Bedside Urine Protein +++ 300 Bedside Urine Urobilinogen - Negative Bedside Urine Nitrite - Negative Bedside Urine Leukocytes +/- 15 Esterase Imaging Data Chest x-ray: Radiologist's Impression: [place] [address] XRay Report Signed Patient: Sarabjit Jimenes MR#: [id number] : 1990 Acct:[id number] Age/Sex: 33 / F Date of Service: 10/20/23 Loc: ED Accession Number: [id number] Procedure: XR chest 1V Ordering Provider: Carolyn Barker D.O. PROCEDURE: XR CHEST 1V INDICATIONS: cp, abd, dm, ckd TECHNIQUE: One view of the chest was acquired. COMPARISON: [facility], CR, XR CHEST 1V, 05/12/2023, 13:54. [facility], CR, XR CHEST 1V, 03/30/2023, 11:28. FINDINGS: Surgical changes and devices: None. Lungs and pleura: Lungs are clear. No pleural effusions or pneumothorax. Mediastinum: Mediastinal contours appear normal. Heart size is normal. Bones and chest wall: No suspicious bony lesions. Overlying soft tissues appear unremarkable. IMPRESSION: No acute cardiopulmonary abnormality is seen. Dictated by: Bryson Villafana M.D. on 10/20/2023 at 8:18 Approved by: Bryson Villafana M.D. on 10/20/2023 at 8:18 ECG Data Attestation: I personally reviewed and interpreted this ECG as follows: Prior ECG tracings: available for review Interpretation: EKG shows sinus tach rate of 119 TX 134 QRS is 74 QTC of 458. Nonspecific ST change. Patient's EKG appears fairly similar to 07/23/[address] changes. MDM Narrative Medical decision making narrative: 33-year-old female insulin-dependent diabetic who presents with complaint of chest pain abdominal pain, nausea but no vomiting for the past several days. Recent report of being on amoxicillin for dental infection, also notes that she had changes to her medications for her renal disease. Labs show white count of 7.9 hemoglobin is 11.8 platelets are 460, low lymphocytes, INR is 1, sodium is 138 potassium is 4.7 chloride 115 with a CO2 of 12, BUN 18, creatinine is 2.23 up from prior visits over the past 2 months was as as 2.01 but appears to run about 1 point but were to 1.6 baseline patient reports a GFR of about 35 is her baseline. Glucose is 169 on serum, lactate 0.8, alk-phos 168 but bilirubin AST ALT and lipase are normal range. Procalcitonin is negative. Ketones are 3.19. Anion gap is 11 Total CK, troponin is negative and BNP is 2260. Urine, dips nitrate negative, positive leukocyte esterase, 300+ protein, +blood, +ketones.Micro shows 0-1 RBCs 3200 white cells 10-30 squamous moderate bacteria 3200 yeast was sent for culture. Urine is negative VBG shows a pH of 7.17, pCO2 of 36 PO2 of 50 with a bicarb of 13.4 EKG shows sinus Chest x-ray is negative. Patient was given 500 cc/hour bolus, Zofran and pain medication. Patient feels somewhat improved. Spoke with Dr. Vega, hospitalist patient is not in DKA but does have acidosis on ABG, CO2 of 12 anion gap is only 11 but has not YURI with a creatinine 2.23 typical TMs to be about 1.6-1.4. Asked to give some additional fluids, repeat VBG and BNP to see if patient would have any improvement. Patient received 2 L, repeat VBG shows worsening with a pH of 7.136 on repeat CO2 of 33 and a bicarb of 11.4, BNP creatinine is improved at 1.94 but CO2 level is 10, Anion gap is 9. Urine showed questionable infection but also had a lot of squamous epithelials but patient was covered with a dose of Zosyn. Patient does have positive ketones. Repeat glucose is 129. Recontacted Dr. Vega, hospitalist accepts we will plan for ICU we will cover with antibiotics she may have infectious source her metabolic acidosis asked that we start her on dextrose NS at 100 mL/hour and insulin drip at 1-2 units with Q 30 minutes Accu-Cheks with plan for ICU. Critical Care Time Critical Care Time Critical Care Time: Yes Total Critical Care Time: 35 Attestation: The high probability of a clinically significant, sudden or life threatening deterioration of the cardiac, endocrine system(s) required my full and direct attention, intervention and personal management. The aggregate critical care time was [--] minutes. This time is in addition to time spent performing reported procedures but includes the following: [x] Data Review and interpretation [x] Patient assessment and monitoring of vital signs [x] Documentation [x] Medication orders and management Discharge Plan Departure Patient Disposition: Admitted As Inpatient Clinical Impression: Metabolic acidosis, Diabetes mellitus with ketosis Admit Date/Time: 10/20/23 12:43 Admit Provider: Pedro Vega
[2023-10-20 08:27] LABS: Prothrombin Time 11.4 SECONDS (9.4-12.5)
[2023-10-20 08:28] LABS: Add Manual Diff / Slide Review NO; Basophils Absolute Auto 100 /uL (0-100); Basophils Percent Auto 0.9 % (0-2); Eosinophils Absolute Auto 100 /uL (0-450); Eosinophils Percent Auto 1.1 % (2-4); Hematocrit 36.8 % (36-46); Hemoglobin 11.8 g/dL (12.0-16.0); Lymphocytes Absolute Auto 1800 /uL (1100-4500); Lymphocytes Percent Auto 18.4 % (25-40); Mean Corpuscular HGB Conc 32.2 % (30-36); Mean Corpuscular Hemoglobin 28.6 PG (26-34); Mean Corpuscular Volume 88.6 fL (80-100); Monocytes Absolute Auto 700 /uL (0-900); Monocytes Percent Auto 7.2 % (3-14); Neutrophils Absolute Auto 7000 /uL (1500-7000); Neutrophils Percent Auto 72.4 % (50-75); Platelet Count 460 X10^3/uL (150-400); Red Blood Cell Count 4.15 X10^6/uL (4.0-5.2); Red Cell Distribution Width 13.4 % (11.6-14.8); White Blood Cell Count 9.7 X10^3/uL (4.5-11.0)
[2023-10-20 08:30] LABS: PTT Partial Thromboplastin Tim 49 SECONDS (25.1-36.5)
[2023-10-20 08:32] LABS: Alanine Aminotransferase 19 IU/L (<35); Albumin 3.6 g/dL (3.5-5.0); Alkaline Phosphatase 168 U/L (38-126); Aspartate Aminotransferase 21 IU/L (14-36); BUN Creatinine Ratio 8.1 (6-22); Bilirubin Total 0.5 mg/dL (0.2-1.3); Blood Urea Nitrogen 18 mg/dL (7-17); Calcium 8.6 mg/dL (8.4-10.2); Carbon Dioxide 12 mmol/L (22-32); Chloride 115 mmol/L (98-107); Estimated Glomerular Filt Rate 30 mL/min (>60); Globulin 3.5 g/dL (1.7-4.1); Glucose 169 mg/dL (70-100); HEMOLYSIS 41 (0-50); Lactate (Lactic Acid) 0.8 mmol/L (0.7-2.1); Lipase 30 U/L (23-300); Potassium 4.7 mmol/L (3.4-5.1); Sodium 138 mmol/L (137-145); Total Protein 7.1 g/dL (6.3-8.2)
[2023-10-20] MEDS: ONDANSETRON 4 MG/2 ML INJ IV (08:34)
--- NOTE | 2023-10-20 08:36 | PC.NURSE ---
Blood glucose reading 164, pt's dexcom monitor reading 235.
--- NOTE | 2023-10-20 08:37 | DI.RAD.S_ITS ---
PROCEDURE: XR CHEST 1V INDICATIONS: cp, abd, dm, ckd TECHNIQUE: One view of the chest was acquired. COMPARISON: [facility], CR, XR CHEST 1V, 05/12/2023, 13:54. [facility], CR, XR CHEST 1V, 03/30/2023, 11:28. FINDINGS: Surgical changes and devices: None. Lungs and pleura: Lungs are clear. No pleural effusions or pneumothorax. Mediastinum: Mediastinal contours appear normal. Heart size is normal. Bones and chest wall: No suspicious bony lesions. Overlying soft tissues appear unremarkable. IMPRESSION: No acute cardiopulmonary abnormality is seen. Dictated by: Bryson Villafana M.D. on 10/20/2023 at 8:18 Approved by: Bryson Villafana M.D. on 10/20/2023 at 8:18
--- NOTE | 2023-10-20 08:38 | EKG_ITS ---
[address] [address] Test Date: 2023-10-20 Pat Name: Sarabjit Jimenes Department: Room: Gender: Female Diabetes Education Coordinator: LIAM : 1990 Requested By: Order Number: [id number] Reading MD: Pedro Vega Measurements Intervals [place] Rate: 119 P: 55 MO: 134 QRS: -6 QRSD: 74 T: 57 QT: 326 QTc: 458 Interpretive Statements Sinus tachycardia Nonspecific ST abnormality Electronically Signed On 10-20-2023 17:08:42 PDT by Pedro Vega
[2023-10-20] MEDS: SODIUM CHLORIDE 0.9% 1,000 ML 500 ML IV (08:40)
[2023-10-20 08:48] LABS: Procalcitonin 0.105 ng/mL (<0.5)
[2023-10-20] MEDS: HYDROMORPHONE 0.5 MG INJ IV ×2 (08:59→11:24)
[2023-10-20 09:09] LABS: Base Excess VBG -14.1 mmol/L (0-4); PO2 VBG 50 mmHg (35-45); pH VBG 7.18 (7.33-7.43)
[2023-10-20 09:10] LABS: Fractionated Inspired Oxygen 21; HCO3 VBG 13 mmol/L (24-28); Oxygen Saturation VBG 76 % (70-75); Total CO2 VBG 13 mmol/L (24-29)
[2023-10-20 09:48] LABS: Creatine Kinase 188 U/L (30-135)
--- NOTE | 2023-10-20 09:59 | PC.NURSE ---
Pt's dexcom CGM reading BG of 193. Hospital glucose meter reading 130 BG. Pt and pt's mother educated on how to calibrate the dexcom sensor using the caterina on their phone.
[2023-10-20 10:00] LABS: NT-proBNP (BNP-Adult 18+) 2260 pg/mL (<125); Troponin I < 0.012 ng/mL (0.01-0.034)
[2023-10-20 10:40] LABS: Ketones (Beta-Hydroxybutyrate) 3.19 mmol/L (<0.27)
[2023-10-20] MEDS: SODIUM CHLORIDE 0.9% 1,000 ML 1000 ML IV (10:40)
[2023-10-20 11:13] LABS: Urine Volume 10mL (spun)
[2023-10-20 11:14] LABS: Bacteria Urine Moderate (10-30); RBC Urine 0-1/HPF (0-5/HPF); Squamous Epithelial Cell Urine 10-30 /HPF (0-5/HPF); WBC Urine 30-100/HPF (0-5/HPF)
[2023-10-20 11:15] LABS: Culture Indicated Urine Specimen Cultured
[2023-10-20] MEDS: PIPERACILLIN/TAZO 4.5 GM in SODIUM CHLORIDE 0.9% 100 ML IV (12:13)
[2023-10-20] MEDS: SODIUM CHLORIDE 0.9% 1,000 ML 150 ML IV (12:13)
[2023-10-20 12:14] LABS: BUN Creatinine Ratio 8.2 (6-22); Blood Urea Nitrogen 16 mg/dL (7-17); Calcium 7.6 mg/dL (8.4-10.2); Carbon Dioxide 10 mmol/L (22-32); Chloride 119 mmol/L (98-107); Estimated Glomerular Filt Rate 35 mL/min (>60); Glucose 129 mg/dL (70-100); HEMOLYSIS 19 (0-50); Potassium 4.3 mmol/L (3.4-5.1); Sodium 138 mmol/L (137-145)
[2023-10-20 12:16] LABS: Base Excess VBG -16.6 mmol/L (0-4); PCO2 VBG 33.9 mmHg (45-50); PO2 VBG 88 mmHg (35-45); pH VBG 7.13 (7.33-7.43)
[2023-10-20 12:17] LABS: Fractionated Inspired Oxygen 21; HCO3 VBG 11 mmol/L (24-28); Oxygen Saturation VBG 93 % (70-75); Total CO2 VBG 11 mmol/L (24-29)
[2023-10-20] MEDS: DEXTROSE 5%-0.9% NS 1,000 ML 100 ML IV (13:11)
[2023-10-20] MEDS: INSULIN DRIP PREMIX 100 UNIT/100 ML PLAST..BAG IV (13:47)
--- NOTE | 2023-10-20 13:59 | PC.ADMIT ---
.[id number] Admission Note: Admitted from ED via stretcher, transferred to new bed via slide board. Father, Peter, at bedside. Patient A/O x4, calmly stating 7/10 pain in abdomen, chest, and head. HR 110-120, sinus tach, other vitals stable. Patient now blind, oriented to room and provided with sight-impaired call light. Per Dr Vega: running inulsin drip at 2 mls/hr and D5 1/2NS at 100 mls/hr, BGC checks every 30-60 minutes. Awaiting further orders and continuing to monitor. The patient,Sarabjit Jimenes,33 y/o, was given written information regarding hospital policies, unit procedures and contact persons. Patient's smoking status: Never smoker. Vital Signs - 8 hr 10/20/23 07:48 10/20/23 07:48 10/20/23 07:53 Temperature 99.0 F Pulse Rate 120 H 119 H Respiratory Rate 18 Blood Pressure 120/61 120/61 Pulse Oximetry 97 99 Oxygen Delivery Method Room Air 10/20/23 08:00 10/20/23 08:00 10/20/23 08:30 Temperature Pulse Rate 116 H 116 H Respiratory Rate 14 11 L Blood Pressure 140/72 Pulse Oximetry 96 97 Oxygen Delivery Method 10/20/23 08:30 10/20/23 09:00 10/20/23 09:02 Temperature Pulse Rate 116 H 114 H Respiratory Rate 11 L 11 L Blood Pressure 143/78 H Pulse Oximetry 98 98 Oxygen Delivery Method Room Air 10/20/23 09:02 10/20/23 09:30 10/20/23 09:30 Temperature Pulse Rate 110 H Respiratory Rate 12 Blood Pressure 136/73 134/72 Pulse Oximetry 97 Oxygen Delivery Method Room Air 10/20/23 10:00 10/20/23 10:00 10/20/23 10:30 Temperature Pulse Rate 111 H 112 H Respiratory Rate 18 10 L Blood Pressure 124/75 Pulse Oximetry 96 94 Oxygen Delivery Method Room Air 10/20/23 10:30 10/20/23 11:00 10/20/23 11:00 Temperature Pulse Rate 118 H Respiratory Rate 11 L Blood Pressure 114/66 150/75 H Pulse Oximetry 97 Oxygen Delivery Method Room Air 10/20/23 11:30 10/20/23 11:30 10/20/23 12:00 Temperature Pulse Rate 114 H 113 H Respiratory Rate 12 12 Blood Pressure 143/73 H Pulse Oximetry 96 95 Oxygen Delivery Method Room Air Room Air 10/20/23 12:00 Temperature Pulse Rate Respiratory Rate Blood Pressure 120/63 Pulse Oximetry Oxygen Delivery Method
--- NOTE | 2023-10-20 14:42 | P.HP_ITS ---
History of Present Illness History of Present Illness Chief complaint: DIABETES ISSUE BLOOD SUGAR HIGH NAUSEOUS Narrative: From ED doctor: [age] female history of insulin-dependent diabetes, multiple complications including blindness, CKD who presents with complaint of nausea, abdominal pain chest discomfort. Patient states he has had several days of symptoms. No reports of fevers. She states she has not been vomiting. She has been taking her home antiemetics she has been nauseous but not vomiting. States she does have little bit of chest discomfort, denies any shortness of breath. She has had abdominal pain consistent with prior visits. She states she has had some mild diarrhea. No black or bloody stools. Denies any urinary symptoms. She states her face feels little bit puffy and swollen, she does have a history of CHF she denies swelling in her other extremities. She notes that about 2 weeks ago her medications were adjusted with water pill likely being spironolactone being stopped any renal protective medication being started. She does not know the exact names of these medications. Her mom thinks the new medication is hydrochlorothiazide. Patient states that was about 2 weeks ago she has not had any other changes recently that she thinks would have caused her symptoms. She notes sugars has been 2 to 300s she is normally in the 100 range, did take her long-acting insulin 14 units and short-acting 2 units at 6:30 a.m.. She noted to nursing but not myself that she has been amoxicillin for the past week for a dental infection. No complaints of dental pain currently. S: She notes a pending appointment with dental to remove 2 cracked molars later this week. The right molar she feels as associated with her face pain. No fevers, or chills. No rhinorrhea, or sore throat. She has not had high blood sugars but was progressively more acidotic in the emergency department. She denies taking oral diabetes medications, there was a concern for possible euglycemic DKA with her ketones and progressive acidosis. Her renal function has been normal. She denies symptom other than the facial pain, some chest pain, and nausea. She has had anorexia as well. She has been on amoxicillin for several days. In the emergency department, her lactic acid was negative. She was given 2 L of IV fluid over 2 hours and her BNP had no improvement in her acidosis on VBG worsened. [facility] Medical History Noncompliance w/medication treatment due to intermit use of medication Irregular menstrual cycle Migraine headache History of pyelonephritis DKA (diabetic ketoacidoses) Nephrolithiasis Type 1 diabetes mellitus Surgical History Status post cholecystectomy Hx of cataract surgery Hx of local excision of skin lesion [place] teeth extracted Status post laser lithotripsy of ureteral calculus History of ureter stent Family History Father In good health Mother Cardiac disease Social History details: Engaged household members: family Smoking Status: Never smoker alcohol intake: never Meds Home Medications and Allergies Home Medications Medication Instructions Recorded Confirmed Type glucose 4 gram chewable tablet 4 gram PO Q15M PRN hypoglycemia 12/12/18 07/02/22 Rx #30 tabs glucagon (human recombinant) 1 mg 1 mg SUBCUT DIRECTED 02/16/19 07/02/22 History solution for injection (Glucagon Emergency Kit) diphenhydramine HCl 50 mg capsule 50 mg PO BEDTIME PRN Sleep 09/29/20 07/02/22 History ondansetron 4 mg disintegrating 4 mg PO Q8H PRN nausea and 11/08/21 07/02/22 Rx tablet vomiting #10 tabs insulin degludec 200 unit/mL (3 See Rx Instructions .Route .COMPLEX 11/13/21 07/02/22 History mL) subcutaneous pen (Tresiba FlexTouch U-200 insulin) pantoprazole 40 mg tablet,delayed 40 mg PO BEDTIME 11/13/21 07/02/22 History release sennosides 8.6 mg tablet (senna) 8.6 mg PO PRN PRN Constipation 11/13/21 07/02/22 History acetaminophen 325 mg tablet 975 mg (3 x 325 mg) PO Q8H #30 tabs 11/18/21 07/02/22 Rx naloxone 4 mg/actuation nasal 1 spray intranasal Q2M #2 ea 11/18/21 07/02/22 Rx spray (Narcan) ondansetron 4 mg disintegrating 4 mg PO Q8H PRN nausea and 03/18/22 07/02/22 Rx tablet vomiting #15 tabs atropine 1 % eye drops 1 drp ophthalmic (eye) BEDTIME 07/02/22 07/02/22 History brinzolamide 1 %-brimonidine 0.2 % 1 drp ophthalmic (eye) BID 07/02/22 07/02/22 History eye drops,suspension (Simbrinza) insulin lispro 100 unit/mL See Rx Instructions .Route .COMPLEX 07/02/22 07/04/22 History subcutaneous solution (Humalog U-100 Insulin) latanoprost 0.005 % eye drops 1 drp ophthalmic (eye) BEDTIME 07/02/22 07/02/22 History timolol maleate 0.5 % eye drops 1 drp ophthalmic (eye) BID 07/02/22 07/02/22 History torsemide 20 mg tablet 20 mg PO DAILY #30 tabs 07/05/22 Rx azithromycin 250 mg tablet See Rx Instructions PO .COMPLEX #6 09/13/22 Rx tabs hydrocodone 5 mg-acetaminophen 325 1 tab PO Q4-6H PRN pain #10 tabs 09/13/22 Rx mg tablet promethazine 25 mg tablet 25 mg PO Q6H PRN nausea and 12/11/22 Rx vomiting #30 tabs prednisone 20 mg tablet 20 mg PO DAILY #5 tabs 05/27/23 Rx furosemide 20 mg tablet 20 mg PO DAILY #10 tabs 05/31/23 Rx hydrocodone 5 mg-acetaminophen 325 1 tab PO Q8H PRN pain #6 tabs 08/16/23 Rx mg tablet Allergies Allergy/AdvReac Type Severity Reaction Status Date / Time arredondo [ARREDONDO] Allergy Intermediate Hives, Verified 10/20/23 07:58 pruritus iodine [IODINE] Allergy Intermediate rash, itchy Verified 10/20/23 07:58 morphine Allergy Intermediate Difficulty Verified 10/20/23 07:58 Breathing shellfish derived Allergy Intermediate rash Verified 10/20/23 07:58 [SHELLFISH DERIVED] adhesive [ADHESIVE] Allergy Unknown tape Verified 10/20/23 07:58 latex [LATEX] Allergy Unknown Hives Verified 10/20/23 07:58 Review of Systems Review of Systems Narrative: She denies diarrhea. No abdominal cramping currently. No hematuria or dysuria. All else reviewed and otherwise negative. Exam Vital Signs (past 8 hours): - 10/20/23 07:48 10/20/23 07:48 10/20/23 07:53 Temperature 99.0 F Pulse Rate 120 H 119 H Respiratory Rate 18 Blood Pressure 120/61 120/61 Pulse Oximetry 97 99 Oxygen Delivery Method Room Air 10/20/23 08:00 10/20/23 08:00 10/20/23 08:30 Temperature Pulse Rate 116 H 116 H Respiratory Rate 14 11 L Blood Pressure 140/72 Pulse Oximetry 96 97 Oxygen Delivery Method 10/20/23 08:30 10/20/23 09:00 10/20/23 09:02 Temperature Pulse Rate 116 H 114 H Respiratory Rate 11 L 11 L Blood Pressure 143/78 H Pulse Oximetry 98 98 Oxygen Delivery Method Room Air 10/20/23 09:02 10/20/23 09:30 10/20/23 09:30 Temperature Pulse Rate 110 H Respiratory Rate 12 Blood Pressure 136/73 134/72 Pulse Oximetry 97 Oxygen Delivery Method Room Air 10/20/23 10:00 10/20/23 10:00 10/20/23 10:30 Temperature Pulse Rate 111 H 112 H Respiratory Rate 18 10 L Blood Pressure 124/75 Pulse Oximetry 96 94 Oxygen Delivery Method Room Air 10/20/23 10:30 10/20/23 11:00 10/20/23 11:00 Temperature Pulse Rate 118 H Respiratory Rate 11 L Blood Pressure 114/66 150/75 H Pulse Oximetry 97 Oxygen Delivery Method Room Air 10/20/23 11:30 10/20/23 11:30 10/20/23 12:00 Temperature Pulse Rate 114 H 113 H Respiratory Rate 12 12 Blood Pressure 143/73 H Pulse Oximetry 96 95 Oxygen Delivery Method Room Air Room Air 10/20/23 12:00 10/20/23 12:20 10/20/23 12:20 Temperature Pulse Rate 113 H Respiratory Rate 9 L Blood Pressure 120/63 126/63 Pulse Oximetry 94 Oxygen Delivery Method 10/20/23 12:30 10/20/23 12:40 10/20/23 12:40 Temperature Pulse Rate 112 H 110 H Respiratory Rate 13 10 L Blood Pressure 113/63 Pulse Oximetry 94 93 Oxygen Delivery Method Room Air 10/20/23 12:45 10/20/23 13:00 10/20/23 13:00 Temperature Pulse Rate 115 H Respiratory Rate 15 Blood Pressure 131/61 Pulse Oximetry 96 Oxygen Delivery Method Room Air 10/20/23 13:20 10/20/23 13:20 10/20/23 13:30 Temperature Pulse Rate 115 H 117 H Respiratory Rate 16 11 L Blood Pressure 123/65 Pulse Oximetry 97 96 Oxygen Delivery Method Room Air Oxygen Delivery Method Room Air Narrative Exam Narrative: NAD, alert and oriented, fluent speech, calm. Glasses on, blind. Flat affect. Normocephalic skull, EOMI, anicteric sclera, symmetric pupils. Oropharynx unremarkable, no droop. Neck supple, midline trachea, no adenopathy. Lungs clear, normal rate and effort. Heart regular, no murmur gallop or rub. Abdomen is soft, non distended and non tender. Extremities are free of edema. Skin is free of rash or lesions. Joints are not swollen or deformed. Judgment appears to be normal. Objective Imaging Chest x-ray: Radiologist's impression: No acute abnormality. Labs 10/20/23 08:12 10/20/23 14:57 Labs: Laboratory Results - last 24 hr 10/20/23 10/20/23 10/20/23 08:12 08:18 08:20 WBC 9.7 RBC 4.15 Hgb 11.8 L Hct 36.8 MCV 88.6 MCH 28.6 MCHC 32.2 RDW 13.4 Plt Count 460 H Neut % (Auto) 72.4 Lymph % (Auto) 18.4 L [place] % (Auto) 7.2 Eos % (Auto) 1.1 L Baso % (Auto) 0.9 Neut # (Auto) 7000 Lymph # (Auto) 1800 [place] # (Auto) 700 Eos # (Auto) 100 Baso # (Auto) 100 PT 11.4 INR 1.0 APTT 49 H VBG pH 7.18 L* VBG pCO2 36.0 L VBG pO2 50 H VBG HCO3 13 L VBG Total CO2 13 L VBG O2 Saturation 76 H VBG Base Excess -14.1 L FiO2 21 Sodium 138 Potassium 4.7 Chloride 115 H Carbon Dioxide 12 L BUN 18 H Creatinine 2.23 H Estimated GFR 30 L BUN/Creatinine Ratio 8.1 Glucose 169 H Lactate 0.8 Calcium 8.6 Total Bilirubin 0.5 AST 21 ALT 19 Alkaline Phosphatase 168 H Total Creatine Kinase 188 H Troponin I < 0.012 NT-Pro-B Natriuret Pep 2260 H Total Protein 7.1 Albumin 3.6 Globulin 3.5 Albumin/Globulin Ratio 1.0 Lipase 30 Procalcitonin 0.105 Urine RBC Urine WBC Ur Squamous Epith Cells Urine Bacteria Urine Yeast Ur Culture Indicated? Vol Urine Centrifuged Ketones 3.19 H 10/20/23 10/20/23 10/20/23 10:56 11:45 11:50 WBC RBC Hgb Hct MCV MCH MCHC RDW Plt Count Neut % (Auto) Lymph % (Auto) [place] % (Auto) Eos % (Auto) Baso % (Auto) Neut # (Auto) Lymph # (Auto) [place] # (Auto) Eos # (Auto) Baso # (Auto) PT INR APTT VBG pH 7.13 L* VBG pCO2 33.9 L VBG pO2 88 H VBG HCO3 11 L VBG Total CO2 11 L VBG O2 Saturation 93 H VBG Base Excess -16.6 L FiO2 21 Sodium 138 Potassium 4.3 Chloride 119 H Carbon Dioxide 10 L BUN 16 Creatinine 1.94 H Estimated GFR 35 L BUN/Creatinine Ratio 8.2 Glucose 129 H Lactate Calcium 7.6 L Total Bilirubin AST ALT Alkaline Phosphatase Total Creatine Kinase Troponin I NT-Pro-B Natriuret Pep Total Protein Albumin Globulin Albumin/Globulin Ratio Lipase Procalcitonin Urine RBC 0-1/hpf Urine WBC 30-100/hpf H Ur Squamous Epith Cells 10-30 /hpf H D Urine Bacteria Moderate (10-30) H Urine Yeast 30-100/hpf H Ur Culture Indicated? Specimen cultured Vol Urine Centrifuged 10ml (spun) Ketones Assessment & Plan Assessment & Plan narrative: 1. Hyperchloremic metabolic acidosis, present on admission and active. 2. Nausea, vomiting, and chest and face pain, present on admission and active. 3. Possible dental infection, present on admission and active. 4. Ketoacidosis, , present on admission and active. 5. DM1, present on admission and active. Initially attempted to treat her as a euglycemic DKA with a dextrose infusion and insulin drip at 2 units an hour. However she still had hypoglycemia which led us to stop her insulin drip. Plan: -monitor BMP and gap. -we will start a low infusion of a sodium bicarbonate drip to correct acidosis and hyperchloremia. -we will monitor PH with a repeat VBG this evening. -correctional lispro. -no further saline at this time. She was admitted to observation status in the ICU. Estimated date of discharge is 1-2 days pending her clinical course. She was full resuscitation, proxy are her parents. Time Spent With Patient Time with patient: 30 to 49 minutes with 50% spent counseling/coordinating care Quality VTE Deep Vein Thrombosis/Pulmonary Embolism Present on Admission: No MIPS - Meds 'Current medications' to include all prescriptions, [id number] products, herbals, cannabis/cannabidiol products, and vitamin/mineral/dietary (nutritional) supplements. I have utilized all available resources to obtain, update, or review the patient?s current medications. [If Yes, STOP here]: Yes
[2023-10-20 15:17] LABS: Blood Urea Nitrogen 16 mg/dL (7-17); Carbon Dioxide 12 mmol/L (22-32); Chloride 118 mmol/L (98-107); Estimated Glomerular Filt Rate 33 mL/min (>60); Glucose 119 mg/dL (70-100); HEMOLYSIS < 15 (0-50); Potassium 4.1 mmol/L (3.4-5.1); Sodium 140 mmol/L (137-145)
[2023-10-20] MEDS: DEXTROSE 10 % IN WATER 250 ML 150 ML IV (16:27)
[2023-10-20] MEDS: SODIUM BICARB 8.4% VIAL 150 MEQ in DEXTROSE 5% WATER 1,000 ML 75 MEQ IV (17:29)
[2023-10-20] MEDS: OXYCODONE IR 5 MG TABLET PO (17:49)
[2023-10-20 20:53] LABS: MRSA (Nasal) PCR NOT DETECTED (Not Detect)
[2023-10-20 21:11] LABS: BUN Creatinine Ratio 7.8 (6-22); Blood Urea Nitrogen 16 mg/dL (7-17); Calcium 8.2 mg/dL (8.4-10.2); Carbon Dioxide 12 mmol/L (22-32); Chloride 118 mmol/L (98-107); Estimated Glomerular Filt Rate 32 mL/min (>60); Glucose 123 mg/dL (70-100); HEMOLYSIS < 15 (0-50); Sodium 139 mmol/L (137-145)
[2023-10-21] VITALS (27 sets, daily range): BP systolic 124–162; BP diastolic 61–84; PULSE 100–126; RESP 9–19; TEMP 37.2–37.8; O2SAT 88–97
[2023-10-21] MEDS: OXYCODONE IR 5 MG TABLET PO ×2 (00:29→06:27)
[2023-10-21] MEDS: ONDANSETRON 4 MG/2 ML INJ IV ×3 (00:33→21:41)
[2023-10-21 04:09] LABS: Add Manual Diff / Slide Review NO; Basophils Absolute Auto 100 /uL (0-100); Basophils Percent Auto 0.7 % (0-2); Eosinophils Absolute Auto 100 /uL (0-450); Hematocrit 33.7 % (36-46); Lymphocytes Absolute Auto 1300 /uL (1100-4500); Lymphocytes Percent Auto 14.8 % (25-40); Mean Corpuscular HGB Conc 32.7 % (30-36); Mean Corpuscular Hemoglobin 28.6 PG (26-34); Mean Corpuscular Volume 87.5 fL (80-100); Monocytes Absolute Auto 800 /uL (0-900); Monocytes Percent Auto 9.2 % (3-14); Neutrophils Absolute Auto 6600 /uL (1500-7000); Neutrophils Percent Auto 74.3 % (50-75); Platelet Count 405 X10^3/uL (150-400); Red Blood Cell Count 3.86 X10^6/uL (4.0-5.2); Red Cell Distribution Width 13.6 % (11.6-14.8); White Blood Cell Count 8.9 X10^3/uL (4.5-11.0)
[2023-10-21 04:23] LABS: Alanine Aminotransferase 22 IU/L (<35); Albumin 3.1 g/dL (3.5-5.0); Alkaline Phosphatase 168 U/L (38-126); Aspartate Aminotransferase 26 IU/L (14-36); BUN Creatinine Ratio 7.4 (6-22); Bilirubin Total 0.3 mg/dL (0.2-1.3); Blood Urea Nitrogen 15 mg/dL (7-17); Calcium 8.1 mg/dL (8.4-10.2); Carbon Dioxide 14 mmol/L (22-32); Chloride 115 mmol/L (98-107); Estimated Glomerular Filt Rate 33 mL/min (>60); Globulin 3.2 g/dL (1.7-4.1); Glucose 190 mg/dL (70-100); HEMOLYSIS < 15 (0-50); Potassium 3.9 mmol/L (3.4-5.1); Sodium 139 mmol/L (137-145); Total Protein 6.3 g/dL (6.3-8.2)
[2023-10-21] MEDS: INSULIN GLARGINE 100 UNIT/ML 3ML PEN 14 UNIT SUBCUT (09:14)
[2023-10-21] MEDS: FAMOTIDINE 20 MG/2 ML VIAL IV (09:18)
[2023-10-21] MEDS: METOPROLOL ER 50 MG TABLET PO (09:18)
[2023-10-21] MEDS: INSULIN LISPRO 100 UNIT/ML 3ML VIAL SUBCUT ×2 (09:31→12:31)
[2023-10-21 12:52] LABS: BUN Creatinine Ratio 6.6 (6-22); Blood Urea Nitrogen 13 mg/dL (7-17); Calcium 7.7 mg/dL (8.4-10.2); Carbon Dioxide 15 mmol/L (22-32); Chloride 115 mmol/L (98-107); Estimated Glomerular Filt Rate 34 mL/min (>60); Glucose 153 mg/dL (70-100); HEMOLYSIS < 15 (0-50); Potassium 3.7 mmol/L (3.4-5.1); Sodium 137 mmol/L (137-145)
--- NOTE | 2023-10-21 16:39 | CM.DANOTE ---
Initial DCP Assessment: Pt is a 33yo female, resident of [place], is admitted for diabetes with ketosis. Pt lives in a house with her mother and stepfather. Pt's Primary Care Provider is Dr. Maria Ines Limon and insurance is [employer] and Medicaid. Reviewed chart and team rounds for pt's medical status and initial discharge needs. DCP attempted to meet with pt twice, both times pt is asleep. DCP called pt's mother/Emergency Contact, Argelia Osborneerson, and discussed pt's prior living arrangement. Pt's mother confirmed pt needing 24/ assistance from mother to perform ADLs. Pt's mother did not identify any other discharge needs at this time. DCP discussed advanced directives with pt's mother, pt's mother requested a blank copy of advanced directive forms to complete with pt. DCP left copy in pt's red folder chart and notified pt's RN. Plan: Per hospitalist, pt estimated to discharge within 1-2 days until medical clearance. CM team will plan to follow clinical course closely for coordination of discharge plan. CRYSTAL Emerson Discharge Planning/Care Management CM Discharge Assessment Start: 10/21/23 16:36 Freq: Status: Active Protocol: Document 10/21/23 16:37 MW (Rec: 10/21/23 16:39 MW [id number]) Discharge Planning Assessment Assigned Multi Slide Machine Tender RAYMOND Mendoza DPOA/Assigned Designee Name Mother Gonzalez Contact Information [phone] Advance Directives? No: Left blank copy in pt chart for mother/pt to complete. Advance Directives on File No History Provided By Family Member,Medical Record Expected Length of Stay 2 Prior Living Arrangements House Household Members family Comment Patient lives with mother and stepfatherCricket. Independent with ADL's No Is patient alert and oriented? Yes Needs Assistance With Bathing,Eating,Grooming, Managing Medications,Home Chores / Shopping Caregiver for Another No DME Already Rented / Owned Wheelchair,FWW / Walker, Bedside Commode Patient/Family Preference OP PT Therapy Discharge Plan Home Transportation Arrangement Family Referrals Initiated Respiratory Therapy Please Provide Date Initial DC 10/21/23 Assessment Was Performed Next Review Type Continued Stay Review
--- NOTE | 2023-10-21 18:24 | PM.PN.1 ---
Subjective Subjective Interval history: 33 F with PMH of DM1, now blind, multiple prior admissions before admitted for metabolic acidosis, nausea. She remains nauseous today, not tolerating much oral intake. Acidosis is slightly improving as is renal function. Will add reglan. Suspect some dehydration leading to her acidosis. Insulin drip was turned off. Restarted insulin this morning. I doubt patient was in euglycemic DKA with no anion gap. It is possible she corrected previous DKA as during her prior DKA admissions she frequently has a prolonged non-anion gap acidosis after correction. Exam Vital Signs (past 8 hours): - 10/21/23 11:30 10/21/23 11:50 10/21/23 11:50 Temperature 99.7 F H Pulse Rate 110 H 117 H Respiratory Rate 9 L 15 Blood Pressure 142/64 H Pulse Oximetry 95 Oxygen Flow Rate 10/21/23 16:47 Temperature 99.0 F Pulse Rate 103 H Respiratory Rate 10 L Blood Pressure 146/74 H Pulse Oximetry 96 Oxygen Flow Rate 0 Oxygen Delivery Method Room Air Oxygen Flow Rate 0 Narrative Exam Narrative: NAD, alert and oriented, fluent speech, calm. blind. Flat affect. Normocephalic skull, EOMI, anicteric sclera, symmetric pupils. Oropharynx unremarkable, no droop. Neck supple, midline trachea, no adenopathy. Lungs clear, normal rate and effort. Heart regular, no murmur gallop or rub. Abdomen is soft, non distended and non tender. Extremities are free of edema. Skin is free of rash or lesions. Joints are not swollen or deformed. Judgment appears to be normal. Objective Labs 10/21/23 03:47 10/21/23 12:03 Labs: Laboratory Results - last 24 hr 10/20/23 10/20/23 10/21/23 18:15 20:54 03:47 WBC 8.9 RBC 3.86 L Hgb 11.0 L Hct 33.7 L MCV 87.5 MCH 28.6 MCHC 32.7 RDW 13.6 Plt Count 405 H Neut % (Auto) 74.3 Lymph % (Auto) 14.8 L [place] % (Auto) 9.2 Eos % (Auto) 1.0 L Baso % (Auto) 0.7 Neut # (Auto) 6600 Lymph # (Auto) 1300 [place] # (Auto) 800 Eos # (Auto) 100 Baso # (Auto) 100 Sodium 139 139 Potassium 4.0 3.9 Chloride 118 H 115 H Carbon Dioxide 12 L 14 L BUN 16 15 Creatinine 2.06 H 2.03 H Estimated GFR 32 L 33 L BUN/Creatinine Ratio 7.8 7.4 Glucose 123 H 190 H Calcium 8.2 L 8.1 L Total Bilirubin 0.3 AST 26 ALT 22 Alkaline Phosphatase 168 H Total Protein 6.3 Albumin 3.1 L Globulin 3.2 Albumin/Globulin Ratio 1.0 Nasal Screen MRSA (PCR) Not detected 10/21/23 12:03 WBC RBC Hgb Hct MCV MCH MCHC RDW Plt Count Neut % (Auto) Lymph % (Auto) [place] % (Auto) Eos % (Auto) Baso % (Auto) Neut # (Auto) Lymph # (Auto) [place] # (Auto) Eos # (Auto) Baso # (Auto) Sodium 137 Potassium 3.7 Chloride 115 H Carbon Dioxide 15 L BUN 13 Creatinine 1.96 H Estimated GFR 34 L BUN/Creatinine Ratio 6.6 Glucose 153 H Calcium 7.7 L Total Bilirubin AST ALT Alkaline Phosphatase Total Protein Albumin Globulin Albumin/Globulin Ratio Nasal Screen MRSA (PCR) PFSH Medical History Noncompliance w/medication treatment due to intermit use of medication Irregular menstrual cycle Migraine headache History of pyelonephritis DKA (diabetic ketoacidoses) Nephrolithiasis Type 1 diabetes mellitus Surgical History Status post cholecystectomy Hx of cataract surgery Hx of local excision of skin lesion [place] teeth extracted Status post laser lithotripsy of ureteral calculus History of ureter stent Family History Father In good health Mother Cardiac disease Social History details: Engaged household members: family Smoking Status: Never smoker alcohol intake: never Assessment & Plan Assessment & Plan narrative: 1. Hyperchloremic metabolic acidosis, present on admission and active. 2. Nausea, vomiting, and chest and face pain, present on admission and active. 3. Possible dental infection, present on admission and active. 4. Ketoacidosis, , present on admission and active. 5. DM1, present on admission and active. Plan: -start reglan AC, unclear if gastroparesis leading to presentation -stop bicarb infusion, will see if she continues to improve with repeat chemistries tomorrow -resumed home lantus, only correctional as not tolerating much oral intake now for pre-prandial short acting insulin -based on history provided by mother, it is possible she self treated DKA at home, and we are now seeing the patient's usual post DKA nonanion gap acidosis. Though unclear. May also be due to an RTA, dehydration, amongst other etiologies. -patient advanced to carb consistent diet, though she is not able to tolerate much oral intake. -facial pain seems to be improving, has completed recent antibiotics but will continue to monitor. -okay for patient to take her home eye drops as prescribed on the bottles. -will hold home diuretic medications for now. Estimated date of discharge is 1-2 days pending her clinical course. She was full resuscitation, proxy are her parents. Additional history obtained from patient's mother. Discussed with case management and bedside staff to contribute to above subjective, assessment and plan sections. Time Spent With Patient Time with patient: 30 to 49 minutes with 50% spent counseling/coordinating care Quality VTE Deep Vein Thrombosis/Pulmonary Embolism Present on Admission: No
[2023-10-21] MEDS: ATORVASTATIN 20 MG TABLET 40 MG PO (20:41)
[2023-10-21] MEDS: diphenhydrAMINE 25 MG TABLET 50 MG PO (20:41)
[2023-10-21] MEDS: DORZOLAMIDE EYE-BOTH (20:45)
[2023-10-21] MEDS: TIMOLOL EYE-BOTH (20:45)
[2023-10-21] MEDS: ACETAMINOPHEN 325 MG TABLET 650 MG PO (23:28)
[2023-10-22] VITALS (9 sets, daily range): BP systolic 133–196; BP diastolic 72–109; PULSE 69–93; RESP 8–17; TEMP 36.6–37.8; O2SAT 94–98
[2023-10-22 05:00] LABS: Add Manual Diff / Slide Review NO; Basophils Absolute Auto 100 /uL (0-100); Basophils Percent Auto 1.3 % (0-2); Eosinophils Absolute Auto 100 /uL (0-450); Eosinophils Percent Auto 1.9 % (2-4); Hematocrit 29.6 % (36-46); Hemoglobin 9.7 g/dL (12.0-16.0); Lymphocytes Absolute Auto 2300 /uL (1100-4500); Lymphocytes Percent Auto 34.5 % (25-40); Mean Corpuscular HGB Conc 32.8 % (30-36); Mean Corpuscular Hemoglobin 28.5 PG (26-34); Mean Corpuscular Volume 87.1 fL (80-100); Monocytes Absolute Auto 700 /uL (0-900); Monocytes Percent Auto 10.8 % (3-14); Neutrophils Absolute Auto 3400 /uL (1500-7000); Neutrophils Percent Auto 51.5 % (50-75); Platelet Count 362 X10^3/uL (150-400); Red Cell Distribution Width 13.4 % (11.6-14.8); White Blood Cell Count 6.6 X10^3/uL (4.5-11.0)
[2023-10-22 05:23] LABS: Magnesium 2.2 mg/dL (1.6-2.3)
[2023-10-22 05:27] LABS: Alanine Aminotransferase 17 IU/L (<35); Albumin 2.7 g/dL (3.5-5.0); Albumin Globulin Ratio 0.9 (1.0-2.8); Alkaline Phosphatase 139 U/L (38-126); Aspartate Aminotransferase 22 IU/L (14-36); BUN Creatinine Ratio 6.3 (6-22); Bilirubin Total 0.2 mg/dL (0.2-1.3); Blood Urea Nitrogen 14 mg/dL (7-17); Carbon Dioxide 20 mmol/L (22-32); Chloride 115 mmol/L (98-107); Estimated Glomerular Filt Rate 30 mL/min (>60); Globulin 2.9 g/dL (1.7-4.1); Glucose 88 mg/dL (70-100); HEMOLYSIS < 15 (0-50); Potassium 3.5 mmol/L (3.4-5.1); Sodium 139 mmol/L (137-145); Total Protein 5.6 g/dL (6.3-8.2)
[2023-10-22] MEDS: FAMOTIDINE 20 MG/2 ML VIAL IV (08:38)
[2023-10-22] MEDS: METOPROLOL ER 50 MG TABLET PO (08:38)
[2023-10-22] MEDS: METOCLOPRAMIDE HCL 5 MG TABLET PO (08:38)
[2023-10-22] MEDS: TIMOLOL EYE-BOTH (08:45)
[2023-10-22] MEDS: DORZOLAMIDE EYE-BOTH (08:45)
--- NOTE | 2023-10-22 08:45 | PM.DS.1 ---
History of Present Illness History of Present Illness Date Patient Seen: 10/22/23 Time Patient Seen: 08:46 Chief complaint: DIABETES ISSUE BLOOD SUGAR HIGH NAUSEOUS Narrative: From ED doctor: [age] female history of insulin-dependent diabetes, multiple complications including blindness, CKD who presents with complaint of nausea, abdominal pain chest discomfort. Patient states he has had several days of symptoms. No reports of fevers. She states she has not been vomiting. She has been taking her home antiemetics she has been nauseous but not vomiting. States she does have little bit of chest discomfort, denies any shortness of breath. She has had abdominal pain consistent with prior visits. She states she has had some mild diarrhea. No black or bloody stools. Denies any urinary symptoms. She states her face feels little bit puffy and swollen, she does have a history of CHF she denies swelling in her other extremities. She notes that about 2 weeks ago her medications were adjusted with water pill likely being spironolactone being stopped any renal protective medication being started. She does not know the exact names of these medications. Her mom thinks the new medication is hydrochlorothiazide. Patient states that was about 2 weeks ago she has not had any other changes recently that she thinks would have caused her symptoms. She notes sugars has been 2 to 300s she is normally in the 100 range, did take her long-acting insulin 14 units and short-acting 2 units at 6:30 a.m.. She noted to nursing but not myself that she has been amoxicillin for the past week for a dental infection. No complaints of dental pain currently. S: She notes a pending appointment with dental to remove 2 cracked molars later this week. The right molar she feels as associated with her face pain. No fevers, or chills. No rhinorrhea, or sore throat. She has not had high blood sugars but was progressively more acidotic in the emergency department. She denies taking oral diabetes medications, there was a concern for possible euglycemic DKA with her ketones and progressive acidosis. Her renal function has been normal. She denies symptom other than the facial pain, some chest pain, and nausea. She has had anorexia as well. She has been on amoxicillin for several days. In the emergency department, her lactic acid was negative. She was given 2 L of IV fluid over 2 hours and her BNP had no improvement in her acidosis on VBG worsened. Discharge Providers Provider Date of admission: 10/20/23 12:43 Discharge Date: 10/22/23 Primary care physician: Maria Ines Limon DO Consults: 10/20/23 14:41 Consult to Dietitian, Adult Routine Comment: Reason For Exam: diabetic diet Discharge provider: Julio Cesar Weinberg DO Summary Hospital Course Discharge Diagnosis: 1. Hyperchloremic metabolic acidosis, present on admission and active. 2. Nausea, vomiting, and chest and face pain, present on admission and active. 3. Possible dental infection, present on admission and active. 4. Ketoacidosis, , present on admission and active. 5. DM1, present on admission and active. Hospital Course: This is a 33 year old female with PMH of DM1 who was admitted with a non-anion gap metabolic acidosis, and significant nausea vomiting with decreased oral intake. She initially was given bicarb infusion but this was quickly was discontinued. She only became hypoglycemic with initiation of insulin infusion, without improvement of her acidosis initially. This was not consistent with a DKA. She was then restarted on home lantus therapy with labile but overall okay glucose control. Her acidosis slowly improved with fluids and resumption of diet. She was given reglan with improvement in her ability to tolerate oral intake. She recently was treated for a dental infection as well and mother reported elevated glucoses at home prior to admission. It is possible she treated DKA at home and presented in post DKA hyperchloremic acidosis (which patient has had previously during treatments of her DKA here). Also possible her acidosis was due to hypovolemia with nausea and vomiting. This may be due to gastroparesis as symptoms did improve after starting reglan. Recommend holding home diuretic medications for a couple of days at home, resuming previous home insulin therapy, and continuing reglan as needed before meals to see if improvement. Her Cr was stable between 1.9 and 2.2. Her bicarb improved to 20 prior to discharge. Recommend repeat BMP in a couple of weeks. If there is persistent acidosis consider addition of oral bicarb for presumed acidosis in CKD for renal protection. Time Spent with Patient Time spent: Greater than 30 minutes Exam Vital Signs (past 8 hours): - 10/22/23 04:00 10/22/23 04:00 Temperature 98.0 F 98.0 F Pulse Rate 84 Respiratory Rate 17 Blood Pressure 133/76 Pulse Oximetry 95 Oxygen Flow Rate 0 Oxygen Delivery Method Room Air Oxygen Flow Rate 0 Narrative Exam Narrative: NAD, alert and oriented, fluent speech, calm. blind. Flat affect. Extremities are free of edema. Skin is free of rash or lesions. Joints are not swollen or deformed. Judgment appears to be normal. Objective Labs 10/22/23 04:15 10/22/23 04:15 Labs: Laboratory Results - last 24 hr 10/21/23 10/22/23 12:03 04:15 WBC 6.6 RBC 3.40 L Hgb 9.7 L Hct 29.6 L MCV 87.1 MCH 28.5 MCHC 32.8 RDW 13.4 Plt Count 362 Neut % (Auto) 51.5 D Lymph % (Auto) 34.5 [place] % (Auto) 10.8 Eos % (Auto) 1.9 L Baso % (Auto) 1.3 Neut # (Auto) 3400 Lymph # (Auto) 2300 [place] # (Auto) 700 Eos # (Auto) 100 Baso # (Auto) 100 Sodium 137 139 Potassium 3.7 3.5 Chloride 115 H 115 H Carbon Dioxide 15 L 20 L BUN 13 14 Creatinine 1.96 H 2.21 H Estimated GFR 34 L 30 L BUN/Creatinine Ratio 6.6 6.3 Glucose 153 H 88 Calcium 7.7 L 8.0 L Phosphorus 4.0 Magnesium 2.2 Total Bilirubin 0.2 AST 22 ALT 17 Alkaline Phosphatase 139 H Total Protein 5.6 L Albumin 2.7 L Globulin 2.9 Albumin/Globulin Ratio 0.9 L PFSH Medical History Noncompliance w/medication treatment due to intermit use of medication Irregular menstrual cycle Migraine headache History of pyelonephritis DKA (diabetic ketoacidoses) Nephrolithiasis Type 1 diabetes mellitus Surgical History Status post cholecystectomy Hx of cataract surgery Hx of local excision of skin lesion [place] teeth extracted Status post laser lithotripsy of ureteral calculus History of ureter stent Family History Father In good health Mother Cardiac disease Social History details: Engaged household members: family Smoking Status: Never smoker alcohol intake: never Discharge Plan Discharge Plan Patient Disposition: Home Provider Discharge Comment: You were admitted to the hospital with acidosis. This improved with time. Reglan was sent for as needed nausea at home. Continue to hold home diuretic medications for now, if you develop fluid retention or elevated blood pressures these can be restarted as long as you are tolerating adequate oral intake. Discharge orders & Medications Prescriptions: New metoclopramide HCl 5 mg tablet 5 mg PO QAC PRN (Reason: nausea and vomiting) Qty: 30 0RF Rx Instructions: administer 30 minutes before meals, max daily dose 20 mg. Continued glucose 4 gram tablet,chewable 4 gram PO Q15M PRN (Reason: hypoglycemia) Qty: 30 0RF Rx Instructions: until response Glucagon Emergency Kit (human) 1 mg recon soln 1 mg subcut DIRECTED ondansetron 4 mg tablet,disintegrating 4 mg PO Q8H PRN (Reason: nausea and vomiting) Qty: 10 0RF atropine 1 % drops 1 drp ophthalmic (eye) BEDTIME Patient Comments: INSTILL ONE DROP INTO BOTH EYES ONCE DAILY Rx Instructions: L eye only latanoprost 0.005 % drops 1 drp ophthalmic (eye) BEDTIME Patient Comments: INSTILL ONE DROP INTO BOTH EYES EVERY EVENING insulin lispro [Humalog U-100 Insulin] 100 unit/mL Solution See Rx Instructions .ROUTE .COMPLEX Rx Instructions: pt unsure of dosage hydrocodone-acetaminophen 5-325 mg tablet 1 tab PO Q4-6H PRN (Reason: pain) Qty: 10 0RF methocarbamol 500 mg tablet 500 mg PO 4XD PRN (Reason: muscle spasm) metoprolol succinate 50 mg tablet extended release 24 hr 50 mg PO DAILY amlodipine 5 mg tablet 5 mg PO DAILY tramadol 50 mg tablet 50 mg PO 3XD PRN (Reason: pain) brimonidine 0.2 % drops 1 drp EYE-BOTH 3XD atropine 1 % drops 1 drp EYE-LEFT BID oxycodone 5 mg tablet 5 mg Q4H PRN (Reason: Pain (Scale Score 4-6)) insulin aspart U-100 [Novolog FlexPen U-100 Insulin] 100 unit/mL (3 mL) insulin pen 0 - 20 unit SUBCUT 3XD moxifloxacin 0.5 % drops 1 drp EYE-LEFT 4XD rosuvastatin 20 mg tablet 20 mg PO DAILY diphenhydramine HCl 50 mg Capsule 50 mg PO BEDTIME PRN (Reason: Sleep) Rx Instructions: for itching and sleep insulin degludec [Tresiba FlexTouch U-200] 200 unit/mL (3 mL) insulin pen See Rx Instructions .ROUTE .COMPLEX Rx Instructions: 20u in the am 6units at bedtime sennosides [senna] 8.6 mg Tablet 8.6 mg PO PRN PRN (Reason: Constipation) acetaminophen 325 mg Tablet 975 mg PO Q8H Qty: 30 0RF naloxone [Narcan] 4 mg/actuation spray,non-aerosol 1 spray intranasal Q2M Qty: 2 0RF Rx Instructions: spray 1 dose into ONE nostril; alternate nostrils w each dose until help arrives Discontinued spironolactone 25 mg tablet 25 mg PO ONCE PM hydrochlorothiazide 12.5 mg tablet 12.5 mg PO DAILY Follow up/Referrals: Maria Ines Limon, [Primary Care Provider] - Diet/Activity/Treatments Diet: Diet as Tolerated and Carb-consistent/Diabetic Activity: As tolerated, no restrictions Visit Report/Discharge Packet Instructions: DI for Diabetic Ketoacidosis, Metoclopramide Stand Alone Forms: Patient Portal/API, Stroke Signs & Symptoms Discharge Data Primary Care Provider: Maria Ines Limon Attending Provider: Pedro Vega Admit Date/Time: 10/20/23 12:43 Quality VTE Deep Vein Thrombosis/Pulmonary Embolism Present on Admission: No
--- NOTE | 2023-10-22 09:00 | CM.DPNOTE ---
DCP Note SCHOOL ADJUSTMENT COUNSELOR reviewed EMR. Per chart review, pt cleared for dc home today. SCHOOL ADJUSTMENT COUNSELOR met with pt in room. Pt reported no CM/DCP needs at this time, confirmed mom helps take good care of her. Confirmed got a copy of blank DPOA ppwk. Pt eager to go home. P: home today with family support. No identified barriers to safe dc home. CM team will continue to follow as needed. RAYMOND Johnson
[2023-10-22] MEDS: INSULIN GLARGINE 100 UNIT/ML 3ML PEN 14 UNIT SUBCUT (09:30)
== END 2023-10-22 10:00 | disposition home or self-care (01) ==
LOC: ED 08:24 → ICU 16:32 → AC 10-21 08:31
PROVIDERS: Internal Medicine; Admitting Provider Hospitalist; Emergency Provider Emergency Medicine; PCP Student in an Organized Health Care Education/Training Program; Referring Provider Emergency Medicine; Visit Provider Hospitalist
DX: E10.10 Type 1 diabetes mellitus with ketoacidosis without coma (principal); Z79.4 Long term (current) use of insulin
CPT/HCPCS: 36415; 71045; 80048; 80053; 81003; 81015; 81025; 82009; 82550; 82805; 82962; 83605; 83690; 83735; 83880; 84100; 84145; 84484; 85025; 85610; 85730; 87040; 87077; 87086; 87797; 93005; 96361; 96365; 96366; 96367; 96372; 96375; 96376; 99284; 99291; G0378; J1170; J1815; J2405; J2543

== ENCOUNTER 2023-10-26 10:34 | Observation (INO) | payer OTHER, MEDICAID, SELFPAY ==
[2023-10-20 13:59] VITALS: BMI 26.4
[2023-10-26] VITALS (23 sets, daily range): BP systolic 119–168; BP diastolic 68–97; PULSE 85–91; RESP 16–18; TEMP 36.6–36.8; O2SAT 90–99; BMI 26.0
[2023-10-26 11:09] LABS: Add Manual Diff / Slide Review NO; Basophils Absolute Auto 100 /uL (0-100); Basophils Percent Auto 0.9 % (0-2); Eosinophils Absolute Auto 100 /uL (0-450); Eosinophils Percent Auto 0.7 % (2-4); Hematocrit 34.7 % (36-46); Lymphocytes Absolute Auto 1100 /uL (1100-4500); Lymphocytes Percent Auto 10.2 % (25-40); Mean Corpuscular HGB Conc 31.8 % (30-36); Mean Corpuscular Hemoglobin 28.6 PG (26-34); Monocytes Absolute Auto 900 /uL (0-900); Monocytes Percent Auto 8.3 % (3-14); Neutrophils Absolute Auto 8300 /uL (1500-7000); Neutrophils Percent Auto 79.9 % (50-75); Platelet Count 342 X10^3/uL (150-400); Red Blood Cell Count 3.86 X10^6/uL (4.0-5.2); Red Cell Distribution Width 14.1 % (11.6-14.8); White Blood Cell Count 10.3 X10^3/uL (4.5-11.0)
[2023-10-26 11:18] LABS: Alanine Aminotransferase 149 IU/L (<35); Albumin 3.4 g/dL (3.5-5.0); Alkaline Phosphatase 497 U/L (38-126); Aspartate Aminotransferase 347 IU/L (14-36); BUN Creatinine Ratio 7.9 (6-22); Bilirubin Total 0.6 mg/dL (0.2-1.3); Blood Urea Nitrogen 24 mg/dL (7-17); Calcium 8.3 mg/dL (8.4-10.2); Carbon Dioxide 19 mmol/L (22-32); Chloride 111 mmol/L (98-107); Estimated Glomerular Filt Rate 21 mL/min (>60); Globulin 3.4 g/dL (1.7-4.1); Glucose 240 mg/dL (70-100); HEMOLYSIS 58 (0-50); Lipase 35 U/L (23-300); Sodium 135 mmol/L (137-145); Total Protein 6.8 g/dL (6.3-8.2)
[2023-10-26 11:24] LABS: Ketones (Beta-Hydroxybutyrate) 0.85 mmol/L (<0.27)
[2023-10-26] MEDS: ONDANSETRON 4 MG/2 ML INJ IV (11:33)
--- NOTE | 2023-10-26 12:28 | ED.NAVMDI ---
HPI - Nausea/Vomiting/Diarrhea General Chief complaint: Nausea/Vomiting/Diarrhea Stated complaint: vomiting, stomach pain Time Seen by Provider: 10/26/23 11:09 Source: patient, family, EMS, RN notes reviewed and old records reviewed Mode of arrival: EMS Limitations: no limitations History of Present Illness HPI Narrative: 33-year-old female history of insulin-dependent diabetes with multiple complications including blindness, chronic kidney disease who follows with [facility] nephrology. Patient had a dental infection had 3 teeth extracted last . Has been sleepy, occasionally taking oxycodone but not regularly. She states pain has been improving over time, she has had minimal fluid intake and only had solids yesterday. Patient states no drainage, no swelling. She denies any fevers. She denies any chest pain or shortness of breath. Started developed nausea and vomiting today. Patient denies any abdominal back or flank pain. States she has not had a bowel movement last several days but is passing flatus. She states she has not noticed any dysuria, urgency or frequency. Mom notes that maybe little bit decreased output. Mom does state she has not been drinking a lot of fluids. Patient was noted on her last visit to not be calibrating her monitor well. They state that it was high , improved on Saturday did have a low in the last day. She did stop her diuretics after her last hospitalization at the end of September but has been told she can take her hydrochlorothiazide as needed by her airplane patrol pilot. Related Data Home Medications Medication Instructions Recorded Confirmed glucagon (human recombinant) 1 mg 1 mg SUBCUT DIRECTED 02/16/19 07/02/22 solution for injection (Glucagon Emergency Kit) diphenhydramine HCl 50 mg capsule 50 mg PO BEDTIME PRN Sleep 09/29/20 10/20/23 insulin degludec 200 unit/mL (3 See Rx Instructions .Route .COMPLEX 11/13/21 07/02/22 mL) subcutaneous pen (Tresiba FlexTouch U-200 insulin) sennosides 8.6 mg tablet (senna) 8.6 mg PO PRN PRN Constipation 11/13/21 10/20/23 atropine 1 % eye drops 1 drp ophthalmic (eye) BEDTIME 07/02/22 10/20/23 insulin lispro 100 unit/mL See Rx Instructions .Route .COMPLEX 07/02/22 07/04/22 subcutaneous solution (Humalog U-100 Insulin) latanoprost 0.005 % eye drops 1 drp ophthalmic (eye) BEDTIME 07/02/22 10/20/23 amlodipine 5 mg tablet 5 mg PO DAILY 10/20/23 10/20/23 atropine 1 % eye drops 1 drp EYE-LEFT BID 10/20/23 10/20/23 brimonidine 0.2 % eye drops 1 drp EYE-BOTH 3XD 10/20/23 10/20/23 insulin aspart U-100 100 unit/mL 0 - 20 unit SUBCUT 3XD 10/20/23 10/20/23 (3 mL) subcutaneous pen (Novolog FlexPen U-100 Insulin aspart) methocarbamol 500 mg tablet 500 mg PO 4XD PRN muscle spasm 10/20/23 10/20/23 metoprolol succinate 50 mg 50 mg PO DAILY 10/20/23 10/20/23 tablet,extended release 24 hr moxifloxacin 0.5 % eye drops 1 drp EYE-LEFT 4XD 10/20/23 10/20/23 oxycodone 5 mg tablet 5 mg Q4H PRN Pain (Scale Score 4-6) 10/20/23 10/20/23 rosuvastatin 20 mg tablet 20 mg PO DAILY 10/20/23 10/20/23 tramadol 50 mg tablet 50 mg PO 3XD PRN pain 10/20/23 10/20/23 Previous Rx's Medication Instructions Recorded glucose 4 gram chewable tablet 4 gram PO Q15M PRN hypoglycemia 12/12/18 #30 tabs ondansetron 4 mg disintegrating 4 mg PO Q8H PRN nausea and 11/08/21 tablet vomiting #10 tabs acetaminophen 325 mg tablet 975 mg (3 x 325 mg) PO Q8H #30 tabs 11/18/21 naloxone 4 mg/actuation nasal 1 spray intranasal Q2M #2 ea 11/18/21 spray (Narcan) hydrocodone 5 mg-acetaminophen 325 1 tab PO Q4-6H PRN pain #10 tabs 09/13/22 mg tablet metoclopramide HCl 5 mg tablet 5 mg PO QAC PRN nausea and 10/22/23 vomiting #30 tabs Allergies Allergy/AdvReac Type Severity Reaction Status Date / Time arredondo [ARREDONDO] Allergy Intermediate Hives, Verified 10/26/23 10:46 pruritus iodine [IODINE] Allergy Intermediate rash, itchy Verified 10/26/23 10:46 morphine Allergy Intermediate Difficulty Verified 10/26/23 10:46 Breathing shellfish derived Allergy Intermediate rash Verified 10/26/23 10:46 [SHELLFISH DERIVED] adhesive [ADHESIVE] Allergy Unknown tape Verified 10/26/23 10:46 latex [LATEX] Allergy Unknown Hives Verified 10/26/23 10:46 Review of Systems Review of Systems ROS Unobtainable: All systems reviewed & are unremarkable except as noted in HPI and below Patient History Medical History Noncompliance w/medication treatment due to intermit use of medication Irregular menstrual cycle Migraine headache History of pyelonephritis DKA (diabetic ketoacidoses) Nephrolithiasis Type 1 diabetes mellitus Surgical History Status post cholecystectomy Hx of cataract surgery Hx of local excision of skin lesion [place] teeth extracted Status post laser lithotripsy of ureteral calculus History of ureter stent Family History Father In good health Mother Cardiac disease Social History details: Engaged household members: family Smoking Status: Never smoker alcohol intake: never Smoking Status: Never smoker alcohol intake frequency: holidays/special occasions only Substance Use Type: does not use Exam Initial Vital Signs Initial Vital Signs: Vital Signs Pulse Rate 88 10/26/23 10:39 Pulse Oximetry 93 10/26/23 10:39 Course Orders Ordered: ED Orders 10/26/23 11:00 Complete Blood Count AUTO DIFF Stat Comprehensive Metabolic Panel Stat Ketones (Beta-Hydroxybutyrate) Stat Lactate (Lactic Acid) Stat Lipase Stat Procalcitonin Stat 10/26/23 12:20 VBG [Venous Blood Gas] Stat 10/26/23 12:40 US renal complete Stat 10/26/23 13:35 Test Urine Stat Urinalysis and Microscopic Stat Urine Culture Stat 10/26/23 14:32 US abdomen limited Stat 10/26/23 15:00 Blood Culture Stat 10/26/23 15:25 CT kidney ureter bladder (KUB) Stat Sodium Chloride (Normal Saline 0.9%) 1,000 mls @ 150 mls/hr IV CONT BLAISE Last Infusion: 10/26/23 18:07 Dose: 150 mls/hr Documented By: Infusion: 10/26/23 16:51 Dose: 0 mls/hr Documented By: Infusion: 10/26/23 16:06 Dose: 150 mls/hr Documented By: Infusion: 10/26/23 15:40 Dose: 0 mls/hr Documented By: Admin: 10/26/23 15:40 Dose: 150 mls/hr Documented By: BS Ondansetron HCl (Ondansetron 4 Mg/2 Ml Inj) 4 mg IV NOW PRN PRN Reason: Nausea And Vomiting Last Admin: 10/26/23 11:33 Dose: 4 mg Documented By: ОЛЬГА Discontinued Medications Sodium Chloride (Normal Saline 0.9%) 1,000 mls @ 1,000 mls/hr IV BOLUS ONE Stop: 10/26/23 13:28 Last Infusion: 10/26/23 13:42 Dose: Infused Documented By: Admin: 10/26/23 12:40 Dose: 1,000 mls/hr Documented By: RAYMOND Ceftriaxone Sodium 1,000 mg/ (Sodium Chloride) 100 mls @ 200 mls/hr IV NOW ONE Stop: 10/26/23 16:28 Last Infusion: 10/26/23 18:07 Dose: Infused Documented By: Admin: 10/26/23 16:51 Dose: 200 mls/hr Documented By: RAYMOND Ondansetron HCl (Ondansetron 4 Mg Odt) 4 mg PO NOW PRN PRN Reason: Nausea And Vomiting Vital Signs Vital signs: Vital Signs - 8 hr 10/26/23 10:39 10/26/23 10:40 10/26/23 10:40 Temperature 98 F Pulse Rate 88 87 Respiratory Rate 18 Blood Pressure 148/75 H 148/75 H Pulse Oximetry 93 98 Oxygen Delivery Method Room Air Oxygen Flow Rate 10/26/23 10:40 10/26/23 11:00 10/26/23 11:00 Temperature Pulse Rate 88 88 Respiratory Rate Blood Pressure 156/77 H Pulse Oximetry 93 92 Oxygen Delivery Method Oxygen Flow Rate 10/26/23 11:30 10/26/23 11:30 10/26/23 12:00 Temperature Pulse Rate 86 Respiratory Rate Blood Pressure 119/69 146/82 H Pulse Oximetry 90 L Oxygen Delivery Method Oxygen Flow Rate 10/26/23 12:00 10/26/23 12:30 10/26/23 12:30 Temperature Pulse Rate 89 87 Respiratory Rate Blood Pressure 135/77 Pulse Oximetry 99 99 Oxygen Delivery Method Oxygen Flow Rate 10/26/23 13:00 10/26/23 13:00 10/26/23 13:40 Temperature Pulse Rate 90 90 Respiratory Rate Blood Pressure 144/88 H Pulse Oximetry 99 98 Oxygen Delivery Method Oxygen Flow Rate 10/26/23 14:00 10/26/23 14:30 10/26/23 14:48 Temperature Pulse Rate 90 87 86 Respiratory Rate Blood Pressure Pulse Oximetry 98 98 98 Oxygen Delivery Method Nasal Cannula Oxygen Flow Rate 2 10/26/23 14:48 10/26/23 15:00 10/26/23 15:00 Temperature Pulse Rate 89 Respiratory Rate Blood Pressure 125/76 138/82 Pulse Oximetry 97 Oxygen Delivery Method Oxygen Flow Rate 10/26/23 15:30 10/26/23 15:30 10/26/23 15:50 Temperature Pulse Rate 91 H 89 Respiratory Rate Blood Pressure 164/83 H Pulse Oximetry 99 97 Oxygen Delivery Method Oxygen Flow Rate 10/26/23 15:50 10/26/23 16:00 10/26/23 16:00 Temperature Pulse Rate 87 Respiratory Rate Blood Pressure 158/91 H 151/89 H Pulse Oximetry 98 Oxygen Delivery Method Nasal Cannula Oxygen Flow Rate 2 10/26/23 16:30 10/26/23 16:30 Temperature Pulse Rate 87 Respiratory Rate Blood Pressure 144/80 H Pulse Oximetry 97 Oxygen Delivery Method Oxygen Flow Rate MDM - Nausea/Vomiting/Diarrhea Lab Data 10/26/23 11:00 10/26/23 11:00 Labs: Lab Results 10/26/23 10/26/23 10/26/23 Range/Units 11:00 12:20 13:35 WBC 10.3 (4.5-11.0) X10^3/uL RBC 3.86 L (4.0-5.2) X10^6/uL Hgb 11.0 L (12.0-16.0) g/dL Hct 34.7 L (36-46) % MCV 90.0 (80-100) fL MCH 28.6 (26-34) PG MCHC 31.8 (30-36) % RDW 14.1 (11.6-14.8) % Plt Count 342 (150-400) X10^3/uL Neut % (Auto) 79.9 H (50-75) % Lymph % (Auto) 10.2 L (25-40) % [place] % (Auto) 8.3 (3-14) % Eos % (Auto) 0.7 L (2-4) % Baso % (Auto) 0.9 (0-2) % Neut # (Auto) 8300 H (8917-0625) /uL Lymph # (Auto) 1100 (5936-1356) /uL [place] # (Auto) 900 (0-900) /uL Eos # (Auto) 100 (0-450) /uL Baso # (Auto) 100 (0-100) /uL VBG pH 7.23 L (7.33-7.43) VBG pCO2 46.4 (45-50) mmHg VBG pO2 62 H (35-45) mmHg VBG HCO3 19 L (24-28) mmol/L VBG Total CO2 19 L (24-29) mmol/L VBG O2 Saturation 87 H (70-75) % VBG Base Excess -8.2 L (0-4) mmol/L FiO2 21 Sodium 135 L (137-145) mmol/L Potassium 5.0 D (3.4-5.1) mmol/L Chloride 111 H (98-107) mmol/L Carbon Dioxide 19 L (22-32) mmol/L BUN 24 H (7-17) mg/dL Creatinine 3.02 H (0.52-1.04) mg/dL Estimated GFR 21 L (>60) mL/min BUN/Creatinine Ratio 7.9 (6-22) Glucose 240 H D (70-100) mg/dL Lactate 0.6 L (0.7-2.1) mmol/L Calcium 8.3 L (8.4-10.2) mg/dL Total Bilirubin 0.6 (0.2-1.3) mg/dL AST 347 H (14-36) IU/L ALT 149 H (<35) IU/L Alkaline Phosphatase 497 H D (38-126) U/L Total Protein 6.8 (6.3-8.2) g/dL Albumin 3.4 L (3.5-5.0) g/dL Globulin 3.4 (1.7-4.1) g/dL Albumin/Globulin Ratio 1.0 (1.0-2.8) Lipase 35 (23-300) U/L Procalcitonin 0.226 (<0.5) ng/mL Urine Color Yellow Urine Appearance Cloudy Urine pH 6.0 (4.5-8.0) Ur Specific [place] 1.025 (1.000-1.035) Urine Protein 3+ H (Negative) Urine Glucose (UA) 1+ H (Negative) g/dL Urine Ketones Trace H (NEGATIVE) Urine Occult Blood 2+ H (Negative) Urine Nitrate Negative (Negative) Urine Bilirubin Negative (NEGATIVE) Urine Urobilinogen 1.0 (0.2) E.U./dL Ur Leukocyte Esterase 1+ H (NEGATIVE) Urine RBC 1-5/hpf (0-5/HPF) Urine WBC 5-10/hpf H (0-5/HPF) Ur Squamous Epith Cells 10-30 /hpf H (0-5/HPF) Urine Bacteria Moderate (10-30) H (None) Urine Yeast 10-30/hpf H (None) Ur Culture Indicated? Specimen cultured Vol Urine Centrifuged Low vol <10ml (spun) A Urine Test Negative (Negative) Ketones 0.85 H (<0.27) mmol/L Point of Care Testing Glucose POC 210 MDM Narrative Medical decision making narrative: 33-year-old female insulin-dependent diabetic who has been quite brittle, was admitted most recently with diabetes with ketosis and acidosis, was not hyperglycemic did not reach DKA criteria but was started on dextrose and insulin drip at that time. Patient presents today had a dental infection had teeth extracted she states that is seems improving. She has not had much intake in terms of fluid but has had nausea and vomiting starting today. She is acidotic with a pH of 7.227, anion gap is 5, potassium is 5 with a sodium of 135 chloride of 111, carbon dioxide is 19 BUN 24 with a creatinine of 3.02 has been generally trending upwards looks like normal has been about 2 over the past week, and has ranged between 1.6 and 2. Glucose is 240, LFTs are somewhat elevated at 347 149 with alk-phos 147. Patient is positive for ketones. CBC shows a white count of 10 hemoglobin is 11 with platelets of 342 predominance neutrophils. Patient had renal ultrasound for worsening YURI. She does note she has been taking some ibuprofen lately. Urinalysis, 3+ protein 1+ glucose trace ketones, 2+ blood, 1+ leuks, but 5 RBCs, 5-10 white cells, 10-30 squamous, moderate bacteria tend to 30s. Specimen was cultured. Patient on prior culture from 10/20/2023 which showed [place] albicans but less than 10,000 CFU per mL. Patient received a 1 L of fluids, Zofran. She has been afebrile no tachycardia no hypotension. Spoke with Dr. Capps hospitalist: Asked for abdominal ultrasound, add on cultures lactate and procalcitonin. These were obtained patient does not have a gallbladder so CT KUB was ordered as well. No biliary ductal dilation cultures are pending, lactate was negative at 0.6, procalcitonin is negative. Continued with fluids also did cover with dose of Rocephin as CT showed some thickening possible cystitis. Re-contacted Dr. Capps who accepts plan for observation fluids we will hold off on any dextrose with insulin drip. Patient was seen by Dr. Capps in the department. Discharge Plan Departure Patient Disposition: Admitted as Observation Clinical Impression: Acidosis, DM ketosis, Acute on chronic kidney failure Admit Date/Time: 10/26/23 16:49 Admit Provider: Amado Capps V
[2023-10-26] MEDS: SODIUM CHLORIDE 0.9% 1,000 ML 1000 ML IV (12:40)
--- NOTE | 2023-10-26 12:40 | DI.US.S_ITS ---
PROCEDURE: US RENAL COMPLETE INDICATIONS: acute on chronic renal injury TECHNIQUE: Real-time scanning was performed of the kidneys and bladder, with image documentation. COMPARISON: [facility], , US RENAL COMPLETE, 07/02/2022, 17:52. FINDINGS: Kidneys: Kidneys are normal in size. Right kidney measures 9.2 cm long; left kidney measures 10.7 cm long. Right renal cortical thickness is 1.4 cm; left renal cortical thickness is 1.4 cm. Renal cortical echotexture is normal. No hydronephrosis. Nonobstructing right renal calcifications. No suspicious solid mass lesions. Bladder: Pre-void bladder volume is less than 10 mL. Post-void residual was not obtained.. Pre-void images demonstrate no intraluminal masses or stones. On pre-void images, neither ureteral jets are noted with color Doppler interrogation. (Of note, ureteral jets may not be detectable in up to 25% of cases due to insufficient differences in specific gravity between ureteral and bladder urine). Miscellaneous: No free pelvic fluid. IMPRESSION: No obstruction. Dictated by: Alejandra Sanchez M.D. on 10/26/2023 at 14:11 Approved by: Alejandra Sanchez M.D. on 10/26/2023 at 14:12
[2023-10-26 13:49] LABS: Bilirubin Urine UA NEGATIVE (NEGATIVE); Color Urine UA YELLOW; Glucose Urine UA 1+ g/dL (Negative); Ketones Urine UA TRACE (NEGATIVE); Leukocyte Esterase Urine UA 1+ (NEGATIVE); Nitrite Urine UA NEGATIVE (Negative); Occult Blood Urine UA 2+ (Negative); Protein Urine UA 3+ (Negative); Specific Gravity Urine UA 1.025 (1.000-1.035)
[2023-10-26 13:50] LABS: Appearance Urine UA CLOUDY
[2023-10-26 13:52] LABS: Pregnancy Test Urine Negative (Negative)
[2023-10-26 13:54] LABS: Urine Volume Low Vol <10mL (spun)
[2023-10-26 13:57] LABS: Bacteria Urine Moderate (10-30); Culture Indicated Urine Specimen Cultured; RBC Urine 1-5/HPF (0-5/HPF); Squamous Epithelial Cell Urine 10-30 /HPF (0-5/HPF); WBC Urine 5-10/HPF (0-5/HPF)
[2023-10-26 14:11] LABS: PCO2 VBG 46.4 mmHg (45-50); PO2 VBG 62 mmHg (35-45); pH VBG 7.23 (7.33-7.43)
[2023-10-26 14:12] LABS: Base Excess VBG -8.2 mmol/L (0-4); HCO3 VBG 19 mmol/L (24-28)
[2023-10-26 14:13] LABS: Oxygen Saturation VBG 87 % (70-75); Total CO2 VBG 19 mmol/L (24-29)
[2023-10-26 14:14] LABS: Fractionated Inspired Oxygen 21
--- NOTE | 2023-10-26 14:32 | DI.US.S_ITS ---
PROCEDURE: US ABDOMEN LIMITED INDICATIONS: ruq TECHNIQUE: Real-time scanning was performed of the abdominal and retroperitoneal organs, with image documentation. COMPARISON: [facility], , US ABDOMEN LIMITED, 06/17/2022, 11:10. FINDINGS: Liver: Liver is normal in size and homogeneous in echotexture. Gallbladder: Surgically absent. Biliary ducts: Intrahepatic bile ducts are non-dilated. Extrahepatic bile duct caliber measures 4 mm. Normal is 6-7 mm or less in diameter, or 10 mm or less post-cholecystectomy. Pancreas: Visualized portions of the pancreas are sonographically normal. Miscellaneous: No free abdominal fluid. IMPRESSION: Cholecystectomy. No biliary ductal dilatation. Dictated by: Bryson Villafana M.D. on 10/26/2023 at 15:05 Approved by: Bryson Villafana M.D. on 10/26/2023 at 15:06
[2023-10-26 14:53] LABS: Lactate (Lactic Acid) 0.6 mmol/L (0.7-2.1)
[2023-10-26 15:11] LABS: Procalcitonin 0.226 ng/mL (<0.5)
--- NOTE | 2023-10-26 15:25 | DI.CT.S_ITS ---
PROCEDURE: CT KIDNEY URETER BLADDER (KUB) INDICATIONS: acute on chronic YURI, elevated lfts, hx cholecyst TECHNIQUE: Axial sections were acquired from the lung bases to the pubic symphysis. Coronal and sagittal reformats were performed. For radiation dose reduction, the following was used: automated exposure control, adjustment of mA and/or kV according to patient size. COMPARISON: Located Within [facility], CT, CT ABDOMEN PELVIS W CON, 05/03/2020, 12:05. Located Within [facility], CT, KIDNEY/ URETER/BLADDER, 09/03/2014, 7:57. FINDINGS: Image quality: Diagnostic. Lower Chest: Linear atelectasis versus scarring at the bilateral lung bases. URINARY: Right Kidney: No stones or hydronephrosis. Right Ureter: No hydroureter. Left Kidney: No stones or hydronephrosis. Left Ureter: No hydroureter. Bladder: Diffuse urinary bladder wall thickening. No stones. ABDOMEN: Liver: No contour-deforming solid mass. Gallbladder: Surgically absent Biliary ducts: No biliary dilation. Pancreas: No ductal dilation. Spleen: Size is within normal limits. Adrenal Glands: No adrenal nodules. Stomach and Bowel: Normal colonic caliber, without significant wall thickening. Moderate to large burden of stool. Peritoneum: Trace free pelvic fluid, likely physiologic. No free air. Ventral Wall: No hernia. Abdominal Nodes: No enlarged retroperitoneal or mesenteric lymph nodes. Vessels: Aorta and inferior vena cava are normal in size. PELVIS: Pelvic Organs: Unremarkable. Pelvic Nodes: Unremarkable. Miscellaneous: No inguinal hernias are seen. Bones: Diffusely decreased osseous mineralization. IMPRESSION: 1. Mild diffuse urinary bladder wall thickening, recommend correlation with urinalysis to exclude infection. 2. Moderate to large burden of stool, correlate for constipation. 3. Diffusely decreased osseous mineralization, recommend clinical correlation given age. Dictated by: Bryson Villafana M.D. on 10/26/2023 at 15:06 Approved by: Bryson Villafana M.D. on 10/26/2023 at 15:10
[2023-10-26] MEDS: SODIUM CHLORIDE 0.9% 1,000 ML 150 ML IV (15:40)
[2023-10-26] MEDS: cefTRIAXone 1,000 MG in SODIUM CHLORIDE 0.9% 100 ML 200 MG IV (16:51)
--- NOTE | 2023-10-26 19:03 | P.HP_ITS ---
History of Present Illness History of Present Illness Date Patient Seen: 10/26/23 Time Patient Seen: 17:45 Date of Onset of Symptoms: 10/23/23 Chief complaint: vomiting, stomach pain Narrative: The patient was hospitalized through 10/22/2023 at this hospital for metabolic acidosis in setting of nausea, vomiting and a dental infection. She has since had the dental infection treated with antibiotics (amoxicillin) and experienced nausea, vomiting and diarrhea on and off for the past 3 days. She presented to the emergency department this evening none was noted to have markedly elevated liver function tests and non DKA metabolic acidosis, and continued to feel poorly. She is admitted for further management and evaluation. [facility] Medical History (Updated 10/26/23 @ 19:11 by Amado Capps MD) Abnormal liver function tests Noncompliance w/medication treatment due to intermit use of medication Irregular menstrual cycle Migraine headache History of pyelonephritis DKA (diabetic ketoacidoses) Nephrolithiasis Type 1 diabetes mellitus Surgical History Status post cholecystectomy Hx of cataract surgery Hx of local excision of skin lesion [place] teeth extracted Status post laser lithotripsy of ureteral calculus History of ureter stent Family History Father In good health Mother Cardiac disease Social History details: Engaged household members: family Smoking Status: Never smoker alcohol intake: never Meds Home Medications and Allergies Home Medications Medication Instructions Recorded Confirmed Type glucose 4 gram chewable tablet 4 gram PO Q15M PRN hypoglycemia 12/12/18 07/02/22 Rx #30 tabs glucagon (human recombinant) 1 mg 1 mg SUBCUT DIRECTED 02/16/19 07/02/22 History solution for injection (Glucagon Emergency Kit) diphenhydramine HCl 50 mg capsule 50 mg PO BEDTIME PRN Sleep 09/29/20 10/20/23 History ondansetron 4 mg disintegrating 4 mg PO Q8H PRN nausea and 11/08/21 10/20/23 Rx tablet vomiting #10 tabs insulin degludec 200 unit/mL (3 See Rx Instructions .Route .COMPLEX 11/13/21 07/02/22 History mL) subcutaneous pen (Tresiba FlexTouch U-200 insulin) sennosides 8.6 mg tablet (senna) 8.6 mg PO PRN PRN Constipation 11/13/21 10/20/23 History acetaminophen 325 mg tablet 975 mg (3 x 325 mg) PO Q8H #30 tabs 11/18/21 10/20/23 Rx naloxone 4 mg/actuation nasal 1 spray intranasal Q2M #2 ea 11/18/21 10/20/23 Rx spray (Narcan) atropine 1 % eye drops 1 drp ophthalmic (eye) BEDTIME 07/02/22 10/20/23 History insulin lispro 100 unit/mL See Rx Instructions .Route .COMPLEX 07/02/22 07/04/22 History subcutaneous solution (Humalog U-100 Insulin) latanoprost 0.005 % eye drops 1 drp ophthalmic (eye) BEDTIME 07/02/22 10/20/23 History hydrocodone 5 mg-acetaminophen 325 1 tab PO Q4-6H PRN pain #10 tabs 09/13/22 10/20/23 Rx mg tablet amlodipine 5 mg tablet 5 mg PO DAILY 10/20/23 10/20/23 History atropine 1 % eye drops 1 drp EYE-LEFT BID 10/20/23 10/20/23 History brimonidine 0.2 % eye drops 1 drp EYE-BOTH 3XD 10/20/23 10/20/23 History insulin aspart U-100 100 unit/mL 0 - 20 unit SUBCUT 3XD 10/20/23 10/20/23 History (3 mL) subcutaneous pen (Novolog FlexPen U-100 Insulin aspart) methocarbamol 500 mg tablet 500 mg PO 4XD PRN muscle spasm 10/20/23 10/20/23 History metoprolol succinate 50 mg 50 mg PO DAILY 10/20/23 10/20/23 History tablet,extended release 24 hr moxifloxacin 0.5 % eye drops 1 drp EYE-LEFT 4XD 10/20/23 10/20/23 History oxycodone 5 mg tablet 5 mg Q4H PRN Pain (Scale Score 4-6) 10/20/23 10/20/23 History rosuvastatin 20 mg tablet 20 mg PO DAILY 10/20/23 10/20/23 History tramadol 50 mg tablet 50 mg PO 3XD PRN pain 10/20/23 10/20/23 History metoclopramide HCl 5 mg tablet 5 mg PO QAC PRN nausea and 10/22/23 Rx vomiting #30 tabs Allergies Allergy/AdvReac Type Severity Reaction Status Date / Time arredondo [ARREDONDO] Allergy Intermediate Hives, Verified 10/26/23 10:46 pruritus iodine [IODINE] Allergy Intermediate rash, itchy Verified 10/26/23 10:46 morphine Allergy Intermediate Difficulty Verified 10/26/23 10:46 Breathing shellfish derived Allergy Intermediate rash Verified 10/26/23 10:46 [SHELLFISH DERIVED] adhesive [ADHESIVE] Allergy Unknown tape Verified 10/26/23 10:46 latex [LATEX] Allergy Unknown Hives Verified 10/26/23 10:46 Review of Systems Review of Systems ROS: Yes All systems reviewed with the patient and are negative except as otherwise documented Exam Vital Signs (past 8 hours): - 10/26/23 11:30 10/26/23 11:30 10/26/23 12:00 Pulse Rate 86 Blood Pressure 119/69 146/82 H Pulse Oximetry 90 L Oxygen Delivery Method Oxygen Flow Rate 10/26/23 12:00 10/26/23 12:30 10/26/23 12:30 Pulse Rate 89 87 Blood Pressure 135/77 Pulse Oximetry 99 99 Oxygen Delivery Method Oxygen Flow Rate 10/26/23 13:00 10/26/23 13:00 10/26/23 13:40 Pulse Rate 90 90 Blood Pressure 144/88 H Pulse Oximetry 99 98 Oxygen Delivery Method Oxygen Flow Rate 10/26/23 14:00 10/26/23 14:30 10/26/23 14:48 Pulse Rate 90 87 86 Blood Pressure Pulse Oximetry 98 98 98 Oxygen Delivery Method Nasal Cannula Oxygen Flow Rate 2 10/26/23 14:48 10/26/23 15:00 10/26/23 15:00 Pulse Rate 89 Blood Pressure 125/76 138/82 Pulse Oximetry 97 Oxygen Delivery Method Oxygen Flow Rate 10/26/23 15:30 10/26/23 15:30 10/26/23 15:50 Pulse Rate 91 H 89 Blood Pressure 164/83 H Pulse Oximetry 99 97 Oxygen Delivery Method Oxygen Flow Rate 10/26/23 15:50 10/26/23 16:00 10/26/23 16:00 Pulse Rate 87 Blood Pressure 158/91 H 151/89 H Pulse Oximetry 98 Oxygen Delivery Method Nasal Cannula Oxygen Flow Rate 2 10/26/23 16:30 10/26/23 16:30 10/26/23 17:00 Pulse Rate 87 88 Blood Pressure 144/80 H Pulse Oximetry 97 96 Oxygen Delivery Method Oxygen Flow Rate 10/26/23 17:00 10/26/23 17:30 10/26/23 17:30 Pulse Rate 87 Blood Pressure 156/84 H 154/83 H Pulse Oximetry 97 Oxygen Delivery Method Oxygen Flow Rate 10/26/23 18:00 10/26/23 18:00 Pulse Rate 89 Blood Pressure 162/97 H Pulse Oximetry 98 Oxygen Delivery Method Room Air Oxygen Flow Rate Oxygen Delivery Method Room Air Oxygen Flow Rate 2 Narrative Exam Narrative: GENERAL: This is a well-nourished, well-developed patient, in no apparent distress. HEAD: Atraumatic. Normocephalic. No temporal or scalp tenderness. 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 Extraocular motions intact. No scleral icterus. No injection or drainage. ENT: Mucous membranes pink and moist. NECK: Trachea midline. No JVD, bruits or lymphadenopathy. Supple, nontender, no meningeal signs. CARDIOVASCULAR: Regular rate and rhythm without murmurs, gallops, or rubs. RESPIRATORY: Clear to auscultation. GASTROINTESTINAL: Abdomen soft, non-tender, nondistended. EXTREMITIES: No clubbing, cyanosis, or edema. BACK: Nontender without deformity or crepitance. No flank tenderness. NEUROLOGIC: Alert, oriented, speech fluent, full upper and lower motor strength, no focal deficits evident. DERMATOLOGIC: No rashes or skin lesions. Objective Imaging Renal ultrasound: Radiologist's impression: COMPARISON: [facility], , US RENAL COMPLETE, 07/02/2022, 17:52. FINDINGS: Kidneys: Kidneys are normal in size. Right kidney measures 9.2 cm long; left kidney measures 10.7 cm long. Right renal cortical thickness is 1.4 cm; left renal cortical thickness is 1.4 cm. Renal cortical echotexture is normal. No hydronephrosis. Nonobstructing right renal calcifications. No suspicious solid mass lesions. Bladder: Pre-void bladder volume is less than 10 mL. Post-void residual was not obtained.. Pre-void images demonstrate no intraluminal masses or stones. On pre-void images, neither ureteral jets are noted with color Doppler interrogation. (Of note, ureteral jets may not be detectable in up to 25% of cases due to insufficient differences in specific gravity between ureteral and bladder urine). Miscellaneous: No free pelvic fluid. IMPRESSION: No obstruction. Abdominal ulltrasound: Radiologist's impression: TECHNIQUE: Real-time scanning was performed of the abdominal and retroperitoneal organs, with image documentation. COMPARISON: [facility], , US ABDOMEN LIMITED, 06/17/2022, 11:10. FINDINGS: Liver: Liver is normal in size and homogeneous in echotexture. Gallbladder: Surgically absent. Biliary ducts: Intrahepatic bile ducts are non-dilated. Extrahepatic bile duct caliber measures 4 mm. Normal is 6-7 mm or less in diameter, or 10 mm or less post-cholecystectomy. Pancreas: Visualized portions of the pancreas are sonographically normal. Miscellaneous: No free abdominal fluid. IMPRESSION: Cholecystectomy. No biliary ductal dilatation. CT- KUB: Radiologist's impression: 1. Mild diffuse urinary bladder wall thickening, recommend correlation with urinalysis to exclude infection. 2. Moderate to large burden of stool, correlate for constipation. 3. Diffusely decreased osseous mineralization, recommend clinical correlation given age. Labs 10/26/23 11:00 10/26/23 11:00 Labs: Laboratory Results - last 24 hr 10/26/23 10/26/23 10/26/23 11:00 12:20 13:35 WBC 10.3 RBC 3.86 L Hgb 11.0 L Hct 34.7 L MCV 90.0 MCH 28.6 MCHC 31.8 RDW 14.1 Plt Count 342 Neut % (Auto) 79.9 H Lymph % (Auto) 10.2 L [place] % (Auto) 8.3 Eos % (Auto) 0.7 L Baso % (Auto) 0.9 Neut # (Auto) 8300 H Lymph # (Auto) 1100 [place] # (Auto) 900 Eos # (Auto) 100 Baso # (Auto) 100 VBG pH 7.23 L VBG pCO2 46.4 VBG pO2 62 H VBG HCO3 19 L VBG Total CO2 19 L VBG O2 Saturation 87 H VBG Base Excess -8.2 L FiO2 21 Sodium 135 L Potassium 5.0 D Chloride 111 H Carbon Dioxide 19 L BUN 24 H Creatinine 3.02 H Estimated GFR 21 L BUN/Creatinine Ratio 7.9 Glucose 240 H D Lactate 0.6 L Calcium 8.3 L Total Bilirubin 0.6 AST 347 H ALT 149 H Alkaline Phosphatase 497 H D Total Protein 6.8 Albumin 3.4 L Globulin 3.4 Albumin/Globulin Ratio 1.0 Lipase 35 Procalcitonin 0.226 Urine Color Yellow Urine Appearance Cloudy Urine pH 6.0 Ur Specific [place] 1.025 Urine Protein 3+ H Urine Glucose (UA) 1+ H Urine Ketones Trace H Urine Occult Blood 2+ H Urine Nitrate Negative Urine Bilirubin Negative Urine Urobilinogen 1.0 Ur Leukocyte Esterase 1+ H Urine RBC 1-5/hpf Urine WBC 5-10/hpf H Ur Squamous Epith Cells 10-30 /hpf H Urine Bacteria Moderate (10-30) H Urine Yeast 10-30/hpf H Ur Culture Indicated? Specimen cultured Vol Urine Centrifuged Low vol <10ml (spun) A Urine Test Negative Ketones 0.85 H Assessment & Plan Assessment and plan (1) Acute on chronic kidney failure: Qualifiers: Acute renal failure type: unspecified Chronic kidney disease stage: u nspecified stage Qualified Code(s): N17.9 - Acute kidney failure, unspecified; N18.9 - Chronic kidney disease, unspecified Status: Acute (2) Abnormal liver function tests: Status: Acute (3) DM ketosis: Status: Acute (4) Acidosis: Status: Acute (5) Diabetes mellitus with ketosis: Status: Acute (6) Metabolic acidosis: Status: Acute (7) Diabetes mellitus type I: Problem details: Will resume usual insulin once she is no longer in DKA Qualifiers: Diabetes mellitus complication status: with other specified complication Qualified Code(s): E10.69 - Type 1 diabetes mellitus with other specified complication Status: Acute (8) Hyperglycemia: Status: Acute Plan 33-year-old type 1 diabetic presenting with nausea, vomiting and diarrhea, non anion gap metabolic acidosis, and acute kidney injury superimposed on chronic kidney disease. Assessment & Plan narrative: Admit to hospital Hydrate intravenously Administer antiemetics as needed Monitor liver function tests Check stool studies, consider overflow diarrhea Continue insulin with sliding scale coverage Time-Based Coding :: [TOTAL MINUTES] spent with patient and on the chart (including review of chart, obtaining history, exam, reviewing outside data, placing orders, documenting exam and treatment plan, and counseling patient) on [DATE]. Quality MIPS - Admit I confirm the patient?s Advance Care Plan is present, Code status is documented, Surrogate decision maker is in patient?s record [If Yes, STOP here]: Yes [facility] - Meds 'Current medications' to include all prescriptions, [id number] products, herbals, cannabis/cannabidiol products, and vitamin/mineral/dietary (nutritional) supplements. I have utilized all available resources to obtain, update, or review the patient?s current medications. [If Yes, STOP here]: Yes [facility] Charge Codes Initial inpatient/observation care: 53100
[2023-10-26] MEDS: INSULIN GLARGINE 100 UNIT/ML 3ML PEN 20 UNIT SUBCUT (21:30)
[2023-10-26] MEDS: SODIUM CHLORIDE 0.45% 1,000 ML 100 ML IV (21:30)
[2023-10-27] VITALS: BP 148/86; PULSE 96; RESP 16; TEMP 37.3; O2SAT 96
[2023-10-27 04:00] VITALS: BP 121/72; PULSE 99; RESP 16; TEMP 36.9; O2SAT 99
[2023-10-27 06:31] LABS: Add Manual Diff / Slide Review NO; Basophils Absolute Auto 100 /uL (0-100); Basophils Percent Auto 0.7 % (0-2); Eosinophils Absolute Auto 200 /uL (0-450); Eosinophils Percent Auto 1.7 % (2-4); Hemoglobin 9.4 g/dL (12.0-16.0); Lymphocytes Absolute Auto 1400 /uL (1100-4500); Lymphocytes Percent Auto 15.7 % (25-40); Mean Corpuscular HGB Conc 32.4 % (30-36); Mean Corpuscular Hemoglobin 28.7 PG (26-34); Mean Corpuscular Volume 88.5 fL (80-100); Monocytes Absolute Auto 900 /uL (0-900); Monocytes Percent Auto 9.7 % (3-14); Neutrophils Absolute Auto 6400 /uL (1500-7000); Neutrophils Percent Auto 72.2 % (50-75); Platelet Count 322 X10^3/uL (150-400); Red Blood Cell Count 3.28 X10^6/uL (4.0-5.2); Red Cell Distribution Width 13.7 % (11.6-14.8); White Blood Cell Count 8.8 X10^3/uL (4.5-11.0)
[2023-10-27 06:34] LABS: Alanine Aminotransferase 119 IU/L (<35); Albumin 2.7 g/dL (3.5-5.0); Albumin Globulin Ratio 0.9 (1.0-2.8); Alkaline Phosphatase 440 U/L (38-126); Aspartate Aminotransferase 105 IU/L (14-36); BUN Creatinine Ratio 8.8 (6-22); Bilirubin Total 0.3 mg/dL (0.2-1.3); Blood Urea Nitrogen 21 mg/dL (7-17); Calcium 7.6 mg/dL (8.4-10.2); Carbon Dioxide 18 mmol/L (22-32); Chloride 115 mmol/L (98-107); Estimated Glomerular Filt Rate 27 mL/min (>60); Glucose 102 mg/dL (70-100); HEMOLYSIS < 15 (0-50); Potassium 3.9 mmol/L (3.4-5.1); Sodium 139 mmol/L (137-145); Total Protein 5.7 g/dL (6.3-8.2)
[2023-10-27] MEDS: SODIUM CHLORIDE 0.45% 1,000 ML 100 ML IV (07:42)
[2023-10-27 08:00] VITALS: BP 163/86; PULSE 94; RESP 18; O2SAT 95
--- NOTE | 2023-10-27 11:12 | PC.NURSE ---
Discharge paperwork signed and discussed. Pt education provided. Pt and mom to make follow up appointment tomorrow as it is Saturday and no offices are open. IV discontinued. Pt self-transferred to / and was wheeled to private vehicle by [facility] at approximately 1105
--- NOTE | 2023-10-27 11:54 | CM.DANOTE ---
Brief DCP Assessment Note Pt is a 33yo F readmit here wieh acute kidney failure. Pt was here 10-20-[address] Ashly watson [employer] reviewed EMR. Per RN/hospitalist in morning rounds, anticipate dc home today. No CM needs. Per chart review, pt discharged home with family support last admission. Pt left prior to being seen by this [employer] P: home today, close OP f/u recommended. Family support. CM team will follow as needed RAYMOND Johnson Discharge Planning/Care Management CM Discharge Assessment Start: 10/27/23 11:52 Freq: Status: Active Protocol: Document 10/27/23 11:53 SL (Rec: 10/27/23 11:54 SL [id number]) Discharge Planning Assessment Assigned Slot Key Person RAYMOND Ribeiro DPOA/Assigned Designee Name mother Stout Contact Information [phone] Advance Directives? No Advance Directives on File No History Provided By Patient,Family Member,Medical Record Prior Living Arrangements House Household Members family Independent with ADL's No Is patient alert and oriented? Yes Needs Assistance With Bathing,Eating,Managing Medications,Home Chores / Shopping DME Already Rented / Owned Wheelchair,FWW / Walker, Bedside Commode Patient/Family Preference OP PT Therapy Comment PCP is Dr. Limon at [facility]# . Discharge Plan Home Transportation Arrangement Family Whiteboard Updated in Patient Room with No name and ext. # of Slot Key Person Review Status In Process Please Provide Date Initial DC 10/27/23 Assessment Was Performed Next Review Type Continued Stay Review
--- NOTE | 2023-10-27 13:14 | PM.DS.1 ---
History of Present Illness History of Present Illness Date Patient Seen: 10/27/23 Time Patient Seen: 07:40 Date of Onset of Symptoms: 10/23/23 Chief complaint: vomiting, stomach pain Narrative: The patient was hospitalized through 10/22/2023 at this hospital for metabolic acidosis in setting of nausea, vomiting and a dental infection. She has since had the dental infection treated with antibiotics (amoxicillin) and experienced nausea, vomiting and diarrhea on and off for the past 3 days. She presented to the emergency department this evening none was noted to have markedly elevated liver function tests and non DKA metabolic acidosis, and continued to feel poorly. She is admitted for further management and evaluation. Discharge Providers Provider Date of admission: 10/26/23 16:49 Discharge Date: 10/27/23 Primary care physician: Maria Ines Limon DO Discharge provider: Amado Capps MD Summary Hospital Course Discharge Diagnosis: 1. Acute kidney injury due to volume depletion from nausea and vomiting superimposed on chronic kidney disease, stage IIIB 2. Abnormal liver function tests, possibly due to Augmentin 3. Nausea and vomiting, possibly due to Augmentin 4. Metabolic acidosis due to chronic kidney disease 5. Diabetes mellitus, type 1 without diabetic ketoacidosis 6. Dehydration due to nausea and vomiting Hospital Course: The patient was admitted with nausea, vomiting and diarrhea and a non-anion gap metabolic acidosis, acute kidney injury superimposed on chronic kidney disease, and generalized weakness. She had abnormal liver function tests after a recent course of Augmentin for dental infection. This medication was stopped, she was treated hydration, antiemetics, and observation and proved significantly. Repeat liver function tests are significantly improved following day. Her creatinine had come down towards baseline. She was able to tolerated diet and interested in discharge home. Blood cultures and urine culture were negative at discharge. no other issues arose. The patient and her mother acknowledged understanding, agreement and appreciation of this plan of care, and agreed to call back with any questions or concerns. Status at Discharge Cognitive/behavioral status at discharge: oriented Functional status at discharge: independent ambulation Overall status at discharge: patient is back to baseline Time Spent with Patient Time spent: Less than 30 minutes Exam Vital Signs (past 8 hours): - 10/27/23 08:00 Pulse Rate 94 H Respiratory Rate 18 Blood Pressure 163/86 H Pulse Oximetry 95 Oxygen Delivery Method Room Air Oxygen Flow Rate 0 Narrative Exam Narrative: GENERAL: This is a well-nourished, well-developed patient, in no apparent distress. 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 Extraocular motions intact. No scleral icterus. No injection or drainage. ENT: Mucous membranes pink and moist. NECK: Trachea midline. No JVD, bruits or lymphadenopathy. Supple, nontender, no meningeal signs. CARDIOVASCULAR: Regular rate and rhythm without murmurs, gallops, or rubs. RESPIRATORY: Clear to auscultation. GASTROINTESTINAL: Abdomen soft, non-tender, nondistended. EXTREMITIES: No clubbing, cyanosis, or edema. NEUROLOGIC: Alert, oriented, speech fluent, full upper and lower motor strength, no focal deficits evident. DERMATOLOGIC: No rashes or skin lesions. Objective Imaging Multiple: Radiologist's impression: Renal ultrasound: Radiologist's impression: COMPARISON: [facility], US RENAL COMPLETE, 07/02/2022, 17:52. FINDINGS: Kidneys: Kidneys are normal in size. Right kidney measures 9.2 cm long; left kidney measures 10.7 cm long. Right renal cortical thickness is 1.4 cm; left renal cortical thickness is 1.4 cm. Renal cortical echotexture is normal. No hydronephrosis. Nonobstructing right renal calcifications. No suspicious solid mass lesions. Bladder: Pre-void bladder volume is less than 10 mL. Post-void residual was not obtained.. Pre-void images demonstrate no intraluminal masses or stones. On pre-void images, neither ureteral jets are noted with color Doppler interrogation. (Of note, ureteral jets may not be detectable in up to 25% of cases due to insufficient differences in specific gravity between ureteral and bladder urine). Miscellaneous: No free pelvic fluid. IMPRESSION: No obstruction. Abdominal ulltrasound: Radiologist's impression: TECHNIQUE: Real-time scanning was performed of the abdominal and retroperitoneal organs, with image documentation. COMPARISON: [facility], US ABDOMEN LIMITED, 06/17/2022, 11:10. FINDINGS: Liver: Liver is normal in size and homogeneous in echotexture. Gallbladder: Surgically absent. Biliary ducts: Intrahepatic bile ducts are non-dilated. Extrahepatic bile duct caliber measures 4 mm. Normal is 6-7 mm or less in diameter, or 10 mm or less post-cholecystectomy. Pancreas: Visualized portions of the pancreas are sonographically normal. Miscellaneous: No free abdominal fluid. IMPRESSION: Cholecystectomy. No biliary ductal dilatation. CT- KUB: Radiologist's impression: 1. Mild diffuse urinary bladder wall thickening, recommend correlation with urinalysis to exclude infection. 2. Moderate to large burden of stool, correlate for constipation. 3. Diffusely decreased osseous mineralization, recommend clinical correlation given age. Labs 10/27/23 05:25 10/27/23 05:25 Labs: Laboratory Results - last 24 hr 10/26/23 10/26/23 10/26/23 11:00 12:20 13:35 WBC RBC Hgb Hct MCV MCH MCHC RDW Plt Count Neut % (Auto) Lymph % (Auto) [place] % (Auto) Eos % (Auto) Baso % (Auto) Neut # (Auto) Lymph # (Auto) [place] # (Auto) Eos # (Auto) Baso # (Auto) VBG pH 7.23 L VBG pCO2 46.4 VBG pO2 62 H VBG HCO3 19 L VBG Total CO2 19 L VBG O2 Saturation 87 H VBG Base Excess -8.2 L FiO2 21 Sodium Potassium Chloride Carbon Dioxide BUN Creatinine Estimated GFR BUN/Creatinine Ratio Glucose Lactate 0.6 L Calcium Total Bilirubin AST ALT Alkaline Phosphatase Total Protein Albumin Globulin Albumin/Globulin Ratio Procalcitonin 0.226 Urine Color Yellow Urine Appearance Cloudy Urine pH 6.0 Ur Specific [place] 1.025 Urine Protein 3+ H Urine Glucose (UA) 1+ H Urine Ketones Trace H Urine Occult Blood 2+ H Urine Nitrate Negative Urine Bilirubin Negative Urine Urobilinogen 1.0 Ur Leukocyte Esterase 1+ H Urine RBC 1-5/hpf Urine WBC 5-10/hpf H Ur Squamous Epith Cells 10-30 /hpf H Urine Bacteria Moderate (10-30) H Urine Yeast 10-30/hpf H Ur Culture Indicated? Specimen cultured Vol Urine Centrifuged Low vol <10ml (spun) A Urine Test Negative 10/27/23 05:25 WBC 8.8 RBC 3.28 L Hgb 9.4 L Hct 29.0 L MCV 88.5 MCH 28.7 MCHC 32.4 RDW 13.7 Plt Count 322 Neut % (Auto) 72.2 Lymph % (Auto) 15.[address] [place] % (Auto) 9.7 Eos % (Auto) 1.7 L Baso % (Auto) 0.7 Neut # (Auto) 6400 Lymph # (Auto) 1400 [place] # (Auto) 900 Eos # (Auto) 200 Baso # (Auto) 100 VBG pH VBG pCO2 VBG pO2 VBG HCO3 VBG Total CO2 VBG O2 Saturation VBG Base Excess FiO2 Sodium 139 Potassium 3.9 Chloride 115 H Carbon Dioxide 18 L BUN 21 H Creatinine 2.40 H Estimated GFR 27 L BUN/Creatinine Ratio 8.8 Glucose 102 H D Lactate Calcium 7.6 L Total Bilirubin 0.3 AST 105 H ALT 119 H Alkaline Phosphatase 440 H Total Protein 5.7 L Albumin 2.7 L Globulin 3.0 Albumin/Globulin Ratio 0.9 L Procalcitonin Urine Color Urine Appearance Urine pH Ur Specific [place] Urine Protein Urine Glucose (UA) Urine Ketones Urine Occult Blood Urine Nitrate Urine Bilirubin Urine Urobilinogen Ur Leukocyte Esterase Urine RBC Urine WBC Ur Squamous Epith Cells Urine Bacteria Urine Yeast Ur Culture Indicated? Vol Urine Centrifuged Urine Test FOR[facility]LY [facility], [facility] Medical History (Updated 10/26/23 @ 19:11 by Amado Capps MD) Abnormal liver function tests Noncompliance w/medication treatment due to intermit use of medication Irregular menstrual cycle Migraine headache History of pyelonephritis DKA (diabetic ketoacidoses) Nephrolithiasis Type 1 diabetes mellitus Surgical History Status post cholecystectomy Hx of cataract surgery Hx of local excision of skin lesion [place] teeth extracted Status post laser lithotripsy of ureteral calculus History of ureter stent Family History Father In good health Mother Cardiac disease Social History details: Engaged household members: family Smoking Status: Never smoker alcohol intake: never Discharge Plan Discharge Plan Patient Disposition: Home Provider Discharge Comment: She is advised she may resume prescribed amoxicillin (not Augmentin/amoxicillin clavulanate) for dental infection per her dentist Discharge orders & Medications Prescriptions: Continued glucose 4 gram tablet,chewable 4 gram PO Q15M PRN (Reason: hypoglycemia) Qty: 30 0RF Rx Instructions: until response Glucagon Emergency Kit (human) 1 mg recon soln 1 mg subcut DIRECTED ondansetron 4 mg tablet,disintegrating 4 mg PO Q8H PRN (Reason: nausea and vomiting) Qty: 10 0RF atropine 1 % drops 1 drp ophthalmic (eye) BEDTIME Patient Comments: INSTILL ONE DROP INTO BOTH EYES ONCE DAILY Rx Instructions: L eye only latanoprost 0.005 % drops 1 drp ophthalmic (eye) BEDTIME Patient Comments: INSTILL ONE DROP INTO BOTH EYES EVERY EVENING insulin lispro [Humalog U-100 Insulin] 100 unit/mL Solution See Rx Instructions .ROUTE .COMPLEX Rx Instructions: pt unsure of dosage hydrocodone-acetaminophen 5-325 mg tablet 1 tab PO Q4-6H PRN (Reason: pain) Qty: 10 0RF methocarbamol 500 mg tablet 500 mg PO 4XD PRN (Reason: muscle spasm) metoprolol succinate 50 mg tablet extended release 24 hr 50 mg PO DAILY amlodipine 5 mg tablet 5 mg PO DAILY tramadol 50 mg tablet 50 mg PO 3XD PRN (Reason: pain) brimonidine 0.2 % drops 1 drp EYE-BOTH 3XD atropine 1 % drops 1 drp EYE-LEFT BID oxycodone 5 mg tablet 5 mg Q4H PRN (Reason: Pain (Scale Score 4-6)) insulin aspart U-100 [Novolog FlexPen U-100 Insulin] 100 unit/mL (3 mL) insulin pen 0 - 20 unit SUBCUT 3XD moxifloxacin 0.5 % drops 1 drp EYE-LEFT 4XD rosuvastatin 20 mg tablet 20 mg PO DAILY metoclopramide HCl 5 mg tablet 5 mg PO QAC PRN (Reason: nausea and vomiting) Qty: 30 0RF Rx Instructions: administer 30 minutes before meals, max daily dose 20 mg. diphenhydramine HCl 50 mg Capsule 50 mg PO BEDTIME PRN (Reason: Sleep) Rx Instructions: for itching and sleep insulin degludec [Tresiba FlexTouch U-200] 200 unit/mL (3 mL) insulin pen See Rx Instructions .ROUTE .COMPLEX Rx Instructions: 20u in the am 6units at bedtime sennosides [senna] 8.6 mg Tablet 8.6 mg PO PRN PRN (Reason: Constipation) acetaminophen 325 mg Tablet 975 mg PO Q8H Qty: 30 0RF naloxone [Narcan] 4 mg/actuation spray,non-aerosol 1 spray intranasal Q2M Qty: 2 0RF Rx Instructions: spray 1 dose into ONE nostril; alternate nostrils w each dose until help arrives Follow up/Referrals: Maria Ines Limon, DO [Primary Care Provider] - Diet/Activity/Treatments Diet: Carb-consistent/Diabetic Visit Report/Discharge Packet Stand Alone Forms: Patient Portal/API, Stroke Signs & Symptoms Discharge Data Primary Care Provider: Maria Ines Limon Attending Provider: Amado Capps V Admit Date/Time: 10/26/23 16:49 Quality MIPS - Admit I confirm the patient?s Advance Care Plan is present, Code status is documented, Surrogate decision maker is in patient?s record [If Yes, STOP here]: Yes MIPS - Meds 'Current medications' to include all prescriptions, [id number] products, herbals, cannabis/cannabidiol products, and vitamin/mineral/dietary (nutritional) supplements. I have utilized all available resources to obtain, update, or review the patient?s current medications. [If Yes, STOP here]: Yes MIPS - DC The patient has a history of heart transplant or Left Ventricular Assist Device (LVAD). If yes, STOP here.: No The patient has current or prior documentation of left ventricular ejection fraction (LVEF) less than or equal to 40%, or moderate or severely depressed left ventricular systolic function.: No A. The patient was prescribed or already taking an Angiotensin-Converting Enzyme (MARA) Inhibitor, or Angiotensin Receptor [place] (ARB).: No B. The patient was prescribed or already taking a beta-kelton. [If Yes to Both A & B, STOP here]: No Patient not prescribed/taking MARA or ARB, no reason given.: No Patient not prescribed/taking beta-kelton, no reason given.: No IH PROFEE Charge Codes Discharge inpatient/observation: [id number]
== END 2023-10-27 11:05 | disposition home or self-care (01) ==
LOC: ED 16:44 → AC 16:49
PROVIDERS: Admitting Provider Internal Medicine; Emergency Provider Emergency Medicine; PCP Student in an Organized Health Care Education/Training Program; Referring Provider Emergency Medicine; Visit Provider Internal Medicine
DX: E10.10 Type 1 diabetes mellitus with ketoacidosis without coma (principal); N17.9 Acute kidney failure, unspecified; N18.9 Chronic kidney disease, unspecified; R94.5 Abnormal results of liver function studies; Z79.4 Long term (current) use of insulin
CPT/HCPCS: 36415; 74176; 76705; 76770; 80053; 81001; 81025; 82009; 82805; 82962; 83605; 83690; 84145; 85025; 87040; 87086; 96361; 96365; 96372; 96375; 99285; G0378; J0696; J2405; J7050

== ENCOUNTER 2024-07-18 10:32 | Inpatient (IN) | payer MEDICAID, OTHER, SELFPAY ==
[2023-10-26 20:21] VITALS: BMI 26.0
[2024-07-18] VITALS (22 sets, daily range): BP systolic 165–200; BP diastolic 82–111; PULSE 81–87; RESP 9–37; TEMP 36.6–37.1; O2SAT 91–97; BMI 23.6; BMI 27.5
--- NOTE | 2024-07-18 11:09 | DI.RAD.S_ITS ---
PROCEDURE: XR CHEST 1V INDICATIONS: chest pain TECHNIQUE: One view of the chest was acquired. COMPARISON: [facility], CR, XR CHEST 1V, 05/12/2023, 13:54. [facility], CR, XR CHEST 1V, 10/20/2023, 8:40. FINDINGS: Surgical changes and devices: Cholecystectomy clips are seen. Lungs and pleura: An incomplete inspiratory result is noted, causing a crowded appearance to the lung markings. No focal infiltrates are seen. No pneumothorax or significant pleural effusions are seen. Mediastinum: Mediastinal contours appear normal. Heart size is at the upper limits of normal for imaging technique. Bones and chest wall: No suspicious bony lesions. Overlying soft tissues appear unremarkable. IMPRESSION: Low lung volumes, with generalized interstitial prominence. The interstitial prominence is most likely artifactual, although differential diagnosis includes mild pulmonary edema or atypical infiltrate. Heart size at the upper limits of normal. Dictated by: Remi Polanco M.D. on 07/18/2024 at 10:56 Approved by: Remi Polanco M.D. on 07/18/2024 at 10:57
--- NOTE | 2024-07-18 11:28 | EKG_ITS ---
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
[2024-07-18] MEDS: SODIUM CHLORIDE 0.9% 1,000 ML 1000 ML IV (11:30)
[2024-07-18 12:09] LABS: Base Excess VBG -9.2 mmol/L (0-4); HCO3 VBG 18 mmol/L (24-28); Oxygen Saturation VBG 75 % (70-75); PCO2 VBG 45.9 mmHg (45-50); PO2 VBG 49 mmHg (35-45); Total CO2 VBG 18 mmol/L (24-29); pH VBG 7.21 (7.33-7.43)
[2024-07-18 12:16] LABS: Add Manual Diff / Slide Review NO; Basophils Absolute Auto 100 /uL (0-100); Basophils Percent Auto 1.1 % (0-2); Eosinophils Absolute Auto 300 /uL (0-450); Eosinophils Percent Auto 3.7 % (2-4); Hematocrit 35.2 % (36-46); Hemoglobin 11.1 g/dL (12.0-16.0); Lymphocytes Absolute Auto 1300 /uL (1100-4500); Lymphocytes Percent Auto 17.1 % (25-40); Mean Corpuscular HGB Conc 31.4 % (30-36); Mean Corpuscular Hemoglobin 28.5 PG (26-34); Mean Corpuscular Volume 90.6 fL (80-100); Monocytes Absolute Auto 600 /uL (0-900); Monocytes Percent Auto 8.4 % (3-14); Neutrophils Absolute Auto 5300 /uL (1500-7000); Neutrophils Percent Auto 69.7 % (50-75); Platelet Count 258 X10^3/uL (150-400); Red Blood Cell Count 3.89 X10^6/uL (4.0-5.2); Red Cell Distribution Width 13.8 % (11.6-14.8); White Blood Cell Count 7.6 X10^3/uL (4.5-11.0)
--- NOTE | 2024-07-18 12:23 | ED_ITS ---
HPI - Chest Pain General Chief Complaint: Chest Pain Stated Complaint: Chest pain 3 days Time Seen by Provider: 07/18/24 11:09 Source: patient, EMS, RN notes reviewed and old records reviewed Mode of arrival: Ambulatory Limitations: no limitations History of Present Illness HPI narrative: [age] female history of insulin-dependent diabetes with multiple complications including blindness, chronic kidney disease follows with [facility], CHF, hypertension who presents with complaint of chest pain x3 days on the right side mostly with nausea and vomiting this morning. Patient was [place] his pain has been mostly in the substernal and going towards the right side towards her back. She states nothing seems to make it better or worse. She denies any pleuritic pain. Nothing worse with exertion or activity. No fevers or chills. No shortness of breath. She denies any new swelling of extremities. Patient states she sodium is nausea or vomiting today. Just 1 episode of vomiting. No abdominal back or flank pain. No issues with bowel movements. States she only urinates twice daily but that is her normal. Related Data Home Medications Medication Instructions Recorded Confirmed glucagon (human recombinant) 1 mg 1 mg SUBCUT DIRECTED 02/16/19 07/19/24 solution for injection (Glucagon Emergency Kit) diphenhydramine HCl 50 mg capsule 50 mg PO BEDTIME PRN Sleep 09/29/20 07/18/24 insulin degludec 200 unit/mL (3 See Rx Instructions .Route .COMPLEX 11/13/21 07/02/22 mL) subcutaneous pen (Tresiba FlexTouch U-200 insulin) metoprolol succinate 50 mg 50 mg PO BEDTIME 10/20/23 07/18/24 tablet,extended release 24 hr rosuvastatin 20 mg tablet 20 mg PO BEDTIME 10/20/23 07/18/24 blood-glucose sensor (Dexcom G7 07/19/24 07/19/24 Sensor device) insulin aspart U-100 100 unit/mL 100 unit DAILY 07/19/24 07/19/24 subcutaneous solution (Novolog U-100 Insulin aspart) Previous Rx's Medication Instructions Recorded glucose 4 gram chewable tablet 4 gram PO Q15M PRN hypoglycemia 12/12/18 #30 tabs Allergies Allergy/AdvReac Type Severity Reaction Status Date / Time abdalla [ABDALLA] Allergy Intermediate Hives, Verified 10/26/23 10:46 pruritus iodine [IODINE] Allergy Intermediate rash, itchy Verified 10/26/23 10:46 morphine Allergy Intermediate Difficulty Verified 10/26/23 10:46 Breathing shellfish derived Allergy Intermediate rash Verified 10/26/23 10:46 [SHELLFISH DERIVED] adhesive [ADHESIVE] Allergy Unknown tape Verified 10/26/23 10:46 latex [LATEX] Allergy Unknown Hives Verified 10/26/23 10:46 amoxicillin [From Augmentin] AdvReac Severe Abnormal Verified 10/27/23 13:15 LFTs, N/V clavulanic acid AdvReac Severe Abnormal Verified 10/27/23 13:15 [From Augmentin] LFTs, N/V Review of Systems Review of Systems ROS Unobtainable: All systems reviewed & are unremarkable except as noted in HPI and below Patient History Medical History Abnormal liver function tests Noncompliance w/medication treatment due to intermit use of medication Irregular menstrual cycle Migraine headache History of pyelonephritis DKA (diabetic ketoacidoses) Nephrolithiasis Type 1 diabetes mellitus Surgical History Status post cholecystectomy Hx of cataract surgery Hx of local excision of skin lesion [place] teeth extracted Status post laser lithotripsy of ureteral calculus History of ureter stent Family History Father In good health Mother Cardiac disease Social History details: Engaged household members: family Smoking Status: Never smoker alcohol intake: never Smoking Status: Never smoker alcohol intake frequency: holidays/special occasions only Exam Initial Vital Signs Initial Vital Signs: Vital Signs Pulse Rate 85 07/18/24 10:37 Pulse Oximetry 94 07/18/24 10:37 Course Orders Ordered: Acetaminophen (Acetaminophen 325 Mg Tablet) 650 mg PO Q6H PRN PRN Reason: Fever/Mild Pain (1-3) Atorvastatin Calcium (Atorvastatin 20 Mg Tablet) 40 mg PO BEDTIME BLAISE Diphenhydramine HCl (Diphenhydramine 25 Mg Tablet) 50 mg PO BEDTIME PRN PRN Reason: sleep Last Admin: 07/19/24 00:46 Dose: 50 mg Documented By: TRAVIS Hydromorphone HCl (Hydromorphone 0.5 Mg Inj) 0.5 mg IV Q3H PRN PRN Reason: Pain, Severe (7-10) Last Admin: 07/19/24 04:52 Dose: 0.5 mg Documented By: Admin: 07/18/24 23:39 Dose: 0.5 mg Documented By: TRAVIS Dextrose (D10w) 100 mls @ 999 mls/hr IV PRN PRN PRN Reason: Hypoglycemia Insulin Glargine (Insulin Glargine 100 Unit/Ml 3ml Pen) 20 unit SUBCUT BEDTIME BLAISE Insulin Human Lispro (Insulin Lispro 100 Unit/Ml 3ml Vial) 0 unit SUBCUT ACHS BLAISE; Protocol Last Admin: 07/19/24 05:53 Dose: 5 unit Documented By: TRAVIS Co-signed By: SR Metoprolol Succinate (Metoprolol Er 50 Mg Tablet) 50 mg PO BEDTIME BLAISE Naloxone HCl (Naloxone 0.4 Mg/Ml Vial) 0.2 mg IV Q2MIN PRN PRN Reason: Opiate Reversal Ondansetron HCl (Ondansetron 4 Mg/2 Ml Inj) 4 mg IV Q8HR PRN PRN Reason: Nausea And Vomiting Oxycodone/Acetaminophen (Oxycodone/Acetaminophen 5/325 Tablet) 1 tab PO Q4HR PRN PRN Reason: Pain, Moderate (4-6) Last Admin: 07/18/24 22:59 Dose: 1 tab Documented By: CATHY Discontinued Medications Hydromorphone HCl (Hydromorphone 0.5 Mg Inj) 0.5 mg IV NOW ONE Stop: 07/18/24 14:33 Last Admin: 07/18/24 14:40 Dose: 0.5 mg Documented By: SCOTT Hydromorphone HCl (Hydromorphone 0.5 Mg Inj) 0.5 mg IV NOW ONE Stop: 07/18/24 17:56 Last Admin: 07/18/24 17:58 Dose: 0.5 mg Documented By: JAZLYN Sodium Chloride (Normal Saline 0.9%) 1,000 mls @ 1,000 mls/hr IV BOLUS ONE Stop: 07/18/24 12:09 Last Infusion: 07/18/24 12:32 Dose: Infused Documented By: Admin: 07/18/24 11:30 Dose: 1,000 mls/hr Documented By: SCOTT Calcium Gluconate 4.65 meq/ (Sodium Chloride) 60 mls @ 180 mls/hr IV NOW ONE Stop: 07/18/24 14:33 Last Infusion: 07/18/24 15:00 Dose: Infused Documented By: Admin: 07/18/24 14:25 Dose: 180 mls/hr Documented By: SCOTT Dextrose/Sodium Chloride (Dextrose 5%-0.45% Ns) 1,000 mls @ 50 mls/hr IV CONT BLAISE Last Infusion: 07/19/24 05:06 Dose: 0 mls/hr Documented By: Infusion: 07/19/24 00:47 Dose: 50 mls/hr Documented By: Admin: 07/18/24 21:06 Dose: 75 mls/hr Documented By: TRAVIS Insulin Glargine (Insulin Glargine 100 Unit/Ml 3ml Pen) 20 unit SUBCUT BEDTIME ONE Stop: 07/19/24 05:39 Last Admin: 07/19/24 05:48 Dose: 20 unit Documented By: TRAVIS Co-signed By: SR Metoprolol Tartrate (Metoprolol Ir 25 Mg Tablet) 25 mg PO NOW ONE Stop: 07/18/24 14:13 Last Admin: 07/18/24 14:25 Dose: 25 mg Documented By: SCOTT Sodium Bicarbonate (Sodium Bicarb 8.4% Syringe) 50 meq IV NOW ONE Stop: 07/18/24 13:07 Last Admin: 07/18/24 13:18 Dose: 50 meq Documented By: SCOTT Vital Signs Vital signs: Vital Signs - 8 hr 07/18/24 13:00 07/18/24 13:00 07/18/24 13:30 Temperature Pulse Rate 84 Respiratory Rate 11 L Blood Pressure 189/92 H 198/98 H Pulse Oximetry 95 Oxygen Delivery Method Room Air 07/18/24 13:30 07/18/24 14:00 07/18/24 14:00 Temperature Pulse Rate 84 84 Respiratory Rate 12 9 L Blood Pressure 185/92 H Pulse Oximetry 96 95 Oxygen Delivery Method 07/18/24 14:24 07/18/24 14:24 07/18/24 14:30 Temperature Pulse Rate 85 84 Respiratory Rate 17 10 L Blood Pressure 174/82 H Pulse Oximetry 96 97 Oxygen Delivery Method Room Air 07/18/24 14:30 07/18/24 15:00 07/18/24 15:00 Temperature 98.4 F Pulse Rate 85 Respiratory Rate 15 Blood Pressure 182/89 H 190/89 H Pulse Oximetry 96 Oxygen Delivery Method 07/18/24 15:30 07/18/24 16:00 07/18/24 16:30 Temperature Pulse Rate 87 85 87 Respiratory Rate 17 9 L 37 H Blood Pressure Pulse Oximetry 92 92 95 Oxygen Delivery Method 07/18/24 17:00 07/18/24 17:30 07/18/24 17:53 Temperature Pulse Rate 84 83 84 Respiratory Rate 14 11 L 13 Blood Pressure Pulse Oximetry 94 92 96 Oxygen Delivery Method 07/18/24 17:53 07/18/24 18:00 Temperature Pulse Rate 84 Respiratory Rate 16 Blood Pressure 165/84 H Pulse Oximetry 97 Oxygen Delivery Method MDM - Chest Pain Lab Data 07/19/24 04:50 07/19/24 04:50 Labs: Lab Results 07/18/24 07/18/24 07/18/24 Range/Units 12:05 12:08 14:18 WBC 7.6 (4.5-11.0) X10^3/uL RBC 3.89 L (4.0-5.2) X10^6/uL Hgb 11.1 L (12.0-16.0) g/dL Hct 35.2 L (36-46) % MCV 90.6 (80-100) fL MCH 28.5 (26-34) PG MCHC 31.4 (30-36) % RDW 13.8 (11.6-14.8) % Plt Count 258 (150-400) X10^3/uL Neut % (Auto) 69.7 (50-75) % Lymph % (Auto) 17.1 L (25-40) % [place] % (Auto) 8.4 (3-14) % Eos % (Auto) 3.7 (2-4) % Baso % (Auto) 1.1 (0-2) % Neut # (Auto) 5300 (0266-6721) /uL Lymph # (Auto) 1300 (1435-6713) /uL [place] # (Auto) 600 (0-900) /uL Eos # (Auto) 300 (0-450) /uL Baso # (Auto) 100 (0-100) /uL VBG pH 7.21 L (7.33-7.43) VBG pCO2 45.9 (45-50) mmHg VBG pO2 49 H (35-45) mmHg VBG HCO3 18 L (24-28) mmol/L VBG Total CO2 18 L (24-29) mmol/L VBG O2 Saturation 75 (70-75) % VBG Base Excess -9.2 L (0-4) mmol/L FiO2 % 21.0 % % Sodium 140 (137-145) mmol/L Potassium 6.0 H (3.4-5.1) mmol/L Chloride 114 H (98-107) mmol/L Carbon Dioxide 16 L (22-32) mmol/L BUN 23 H (7-17) mg/dL Creatinine 3.95 H (0.52-1.04) mg/dL Estimated GFR 15 L (>60) mL/min BUN/Creatinine Ratio 5.8 L (6-22) Glucose 112 H (70-100) mg/dL Calcium 7.3 L (8.4-10.2) mg/dL Total Bilirubin 0.4 (0.2-1.3) mg/dL AST 57 H (14-36) IU/L ALT 43 H (<35) IU/L Alkaline Phosphatase 236 H (38-126) U/L Total Creatine Kinase 344 H (30-135) U/L Troponin I < 0.012 (0.01-0.034) ng/mL NT-Pro-B Natriuret Pep 36927 H (<125) pg/mL Total Protein 6.9 (6.3-8.2) g/dL Albumin 3.6 (3.5-5.0) g/dL Globulin 3.3 (1.7-4.1) g/dL Albumin/Globulin Ratio 1.1 (1.0-2.8) Lipase 27 (23-300) U/L Urine Color Yellow Urine Appearance Clear Urine pH 7.0 (4.5-8.0) Ur Specific [place] 1.020 (1.000-1.035) Urine Protein 3+ H (Negative) Urine Glucose (UA) Trace H (Negative) g/dL Urine Ketones Trace H (NEGATIVE) Urine Occult Blood 3+ H (Negative) Urine Nitrate Negative (Negative) Urine Bilirubin Negative (NEGATIVE) Urine Urobilinogen 0.2 (0.2) E.U./dL Ur Leukocyte Esterase Negative (NEGATIVE) Urine RBC 10-30/hpf H (0-5/HPF) Urine WBC None seen (0-5/HPF) Ur Squamous Epith Cells 0-1 /hpf D (0-5/HPF) Urine Bacteria Moderate (10-30) H (None) Urine Yeast 0-1/hpf (None) Ur Culture Indicated? Cult not indicated Vol Urine Centrifuged 10ml (spun) Ketones 0.49 H (<0.27) mmol/L 07/18/24 Range/Units 15:35 WBC (4.5-11.0) X10^3/uL RBC (4.0-5.2) X10^6/uL Hgb (12.0-16.0) g/dL Hct (36-46) % MCV (80-100) fL MCH (26-34) PG MCHC (30-36) % RDW (11.6-14.8) % Plt Count (150-400) X10^3/uL Neut % (Auto) (50-75) % Lymph % (Auto) (25-40) % [place] % (Auto) (3-14) % Eos % (Auto) (2-4) % Baso % (Auto) (0-2) % Neut # (Auto) (1237-8036) /uL Lymph # (Auto) (2902-4851) /uL [place] # (Auto) (0-900) /uL Eos # (Auto) (0-450) /uL Baso # (Auto) (0-100) /uL VBG pH (7.33-7.43) VBG pCO2 (45-50) mmHg VBG pO2 (35-45) mmHg VBG HCO3 (24-28) mmol/L VBG Total CO2 (24-29) mmol/L VBG O2 Saturation (70-75) % VBG Base Excess (0-4) mmol/L FiO2 % % Sodium 141 (137-145) mmol/L Potassium 5.5 H (3.4-5.1) mmol/L Chloride 113 H (98-107) mmol/L Carbon Dioxide 19 L (22-32) mmol/L BUN 23 H (7-17) mg/dL Creatinine 3.68 H (0.52-1.04) mg/dL Estimated GFR 16 L (>60) mL/min BUN/Creatinine Ratio 6.3 (6-22) Glucose 88 (70-100) mg/dL Calcium 7.3 L (8.4-10.2) mg/dL Total Bilirubin (0.2-1.3) mg/dL AST (14-36) IU/L ALT (<35) IU/L Alkaline Phosphatase (38-126) U/L Total Creatine Kinase (30-135) U/L Troponin I (0.01-0.034) ng/mL NT-Pro-B Natriuret Pep (<125) pg/mL Total Protein (6.3-8.2) g/dL Albumin (3.5-5.0) g/dL Globulin (1.7-4.1) g/dL Albumin/Globulin Ratio (1.0-2.8) Lipase (23-300) U/L Urine Color Urine Appearance Urine pH (4.5-8.0) Ur Specific [place] (1.000-1.035) Urine Protein (Negative) Urine Glucose (UA) (Negative) g/dL Urine Ketones (NEGATIVE) Urine Occult Blood (Negative) Urine Nitrate (Negative) Urine Bilirubin (NEGATIVE) Urine Urobilinogen (0.2) E.U./dL Ur Leukocyte Esterase (NEGATIVE) Urine RBC (0-5/HPF) Urine WBC (0-5/HPF) Ur Squamous Epith Cells (0-5/HPF) Urine Bacteria (None) Urine Yeast (None) Ur Culture Indicated? Vol Urine Centrifuged Ketones (<0.27) mmol/L Point of Care Testing Glucose POC 79 ECG Data Attestation: I personally reviewed and interpreted this ECG as follows: Prior ECG tracings: available for review Interpretation: Sinus rhythm, rate 86 NC 156 QRS is 70 QTC of 41, no acute ST elevation depression noted patient has prior showed sinus tachycardia with nonspecific ST change on 10/20/2023 has a little nonspecific change compared to prior. MDM Narrative Medical decision making narrative: EKG shows sinus rhythm nonspecific change no acute ST elevation depression. Labs show white count of 7.6 hemoglobin is 11 appears consistent with prior platelets are 258. Patient's labs show sodium 140 potassium 6 without hemolysis chloride 114 CO2 16 BUN 23 creatinine is 3.9 free this is elevated from patient's priors glucose is 112 calcium 7.3 LFTs are up with a normal bilirubin but AST ALT are 57 and 43 alk-phos is 236 total CK is 344 with a troponin of less than 0.012 [place] [address]. Lipase is 27. Ketones are 0.49 VBG shows a pH of 7.21 pCO2 of 45 PO2 of 49 bicarb of 18 on room air. Urine shows trace glucose trace ketones 3+ blood 3+ protein 10-30 RBCs 1 squamous moderate bacteria. Chest x-ray shows low lung volumes generalized interstitial prominence most likely artifactual although differential includes mild pulmonary edema or atypical infiltrate. Renal ultrasound shows some significant kidney abnormality no hydro Sigala catheter in place. Spoke with on-call Nephrology has say at [facility], recommends can stay but if hospitalist prefers will be happy to see at [facility]. Recommends usual workup with a UA, renal ultrasound strict Is&Os. They note last creatinine was 2 in February and appears to likely be her normal baseline based on prior labs. Spoke with Dr. Mancuso hospitalist that is 1420 we would like to be able to get echo as patient had EF of 45% 2 years ago, urinalysis catheter placement I would like to be able to confirm patient's EF we will see if echos available at so weekend so they have limited hours and we will re-contact. Repeat BMP does have some improvement potassium 5.5 creatinine 3.68 chloride 113 CO2 of 19 BUN 23 calcium 7.3. Sodium is 141. Urine shows 3+ protein trace glucose trace ketones 3+ occult blood 10-30 RBCs no white cells 1 squamous moderate bacteria. Unable to obtain echo Preliminary or renal ultrasound shows no acute change other than subcentimeter cyst. Updated Dr. Mancuso, unable to obtain echo at this point renal ultrasound shows no acute change did repeat BMP patient has had mild improvement after a L of fluid she did have about 600 mL out here in the department for her urinalysis. She upsets for AKA in the setting of CKD, fluid overload hypertension possible CHF in the setting of insulin-dependent diabetes. Discharge Plan Departure Patient Disposition: Admitted As Inpatient Clinical Impression: Diabetes mellitus type I, Congestive heart failure, Acute hyperkalemia, Acute kidney injury superimposed on CKD Admit Date/Time: 07/18/24 18:07 Admit Provider: Janis Mancuso
[2024-07-18 12:29] LABS: Alanine Aminotransferase 43 IU/L (<35); Albumin 3.6 g/dL (3.5-5.0); Albumin Globulin Ratio 1.1 (1.0-2.8); Alkaline Phosphatase 236 U/L (38-126); Aspartate Aminotransferase 57 IU/L (14-36); BUN Creatinine Ratio 5.8 (6-22); Bilirubin Total 0.4 mg/dL (0.2-1.3); Blood Urea Nitrogen 23 mg/dL (7-17); Calcium 7.3 mg/dL (8.4-10.2); Carbon Dioxide 16 mmol/L (22-32); Chloride 114 mmol/L (98-107); Creatine Kinase 344 U/L (30-135); Estimated Glomerular Filt Rate 15 mL/min (>60); Globulin 3.3 g/dL (1.7-4.1); Glucose 112 mg/dL (70-100); Lipase 27 U/L (23-300); Sodium 140 mmol/L (137-145); Total Protein 6.9 g/dL (6.3-8.2)
[2024-07-18 12:35] LABS: Ketones (Beta-Hydroxybutyrate) 0.49 mmol/L (<0.27)
[2024-07-18 12:41] LABS: NT-proBNP (BNP-Adult 18+) 10200 pg/mL (<125); Troponin I < 0.012 ng/mL (0.01-0.034)
[2024-07-18 12:43] LABS: HEMOLYSIS < 15 (0-50)
[2024-07-18] MEDS: SODIUM BICARB 8.4% SYRINGE 50 MEQ IV (13:18)
[2024-07-18] MEDS: SODIUM ZIRCONIUM CYCLOSILICATE 10 GM POWD.PACK PO (13:19)
--- NOTE | 2024-07-18 14:00 | DI.US.S_ITS ---
PROCEDURE: US RENAL COMPLETE INDICATIONS: jai on CKD, DM TECHNIQUE: Real-time scanning was performed of the kidneys and bladder, with image documentation. COMPARISON: , CT, CT KIDNEY URETER BLADDER (KUB), 10/26/2023, 15:33. , US, US ABDOMEN LIMITED, 10/26/2023, 15:35. , US, US RENAL COMPLETE, 10/26/2023, 13:22. FINDINGS: Kidneys: Kidneys are normal in size. Right kidney measures 9.7 cm long; left kidney measures 11 cm long. Right renal cortical thickness is 1.1 cm; left renal cortical thickness is 1.3 cm. Renal cortical echotexture is normal. No hydronephrosis or nephrolithiasis. No suspicious solid mass lesions. There is an 8 mm cyst seen involving the right mid kidney. Bladder: A Sigala catheter is seen, which decompresses the bladder. Miscellaneous: No free pelvic fluid. IMPRESSION: No significant kidney abnormality is seen. No hydronephrosis. Sigala catheter present. Dictated by: Remi Polanco M.D. on 07/18/2024 at 16:02 Approved by: Remi Polanco M.D. on 07/18/2024 at 16:03
--- NOTE | 2024-07-18 14:10 | DI.ECHO.S_ITS ---
[facility]+ [facility] : : [address] : : [place] : : [id number] : : Phone: [phone] Echocardiogram Report + + :Name: ANGEL VERA Study Date: 07/18/2024 Height: 61 in : :[facility] ReadingLocation: Weight: 125 lb : : Gender: Female BSA: 1.5 m2 : :: 1990 Age: 34 yrs BP: 190/89 mmHg: :Reason For Study: CONGESTIVE HEART FAILURE : :Ordering Physician: SITA, : :PINO Performed By: Willard Garcia : :Referring: PINO BUCKNER : + + Interpretation Summary The left ventricle is normal in size. Left ventricular ejection fraction is estimated to be 50%. Left ventricular wall motion is normal. Diastolic parameters suggest a relaxation abnormality of the left ventricle, consistent with probable normal filling pressures. The right ventricle is normal in size and function. Pulmonary artery pressures cannot be estimated because of the lack of a measurable TR jet velocity but the IVC suggests a CVP of around 3 mmHg. The left atrium is mildly dilated. There is no significant valvular heart disease. The aortic root is normal size. Procedure: A two-dimensional transthoracic echocardiogram with color flow and Doppler was performed. The study quality was technically good. Comparison is made with the echocardiogram of 12/11/2023. The patient was in normal sinus rhythm during the exam. Left Ventricle: The left ventricle is normal in size. There is normal left ventricular wall thickness. There is no ventricular septal defect visualized. Left ventricular ejection fraction is estimated to be 50%. Left ventricular wall motion is normal. Diastolic parameters suggest a relaxation abnormality of the left ventricle, consistent with probable normal filling pressures. Right Ventricle: The right ventricle is normal in size and function. Atria: The left atrium is mildly dilated. Right atrial size is normal. There is no Doppler evidence for an interatrial shunt. Mitral Valve: The mitral valve leaflets appear normal. There is no evidence of stenosis, fluttering, or prolapse. There is no mitral regurgitation noted. Aortic Valve: The aortic valve is trileaflet. The aortic valve opens well. No aortic regurgitation is present. Tricuspid Valve: Tricuspid leaflets are thickened. No tricuspid regurgitation. Pulmonary artery pressures cannot be estimated because of the lack of a measurable TR jet velocity but the IVC suggests a CVP of around 3 mmHg. Pulmonic Valve: The pulmonic valve leaflets are thin and pliable; valve motion is normal. There is no pulmonic valvular regurgitation. There is no significant valvular heart disease. Great Vessels: The aortic root is normal size. The dimensions of the ascending aorta are normal. The pulmonary artery is normal size. The inferior vena cava appeared normal. Pericardium/ Pleura There is no pericardial effusion. There is no pleural effusion. MMode/2D Measurements & Calculations LVIDd: 3.9 cm LVOT diam: 1.7 cm LVIDs: 3.4 cm Ao root diam: 2.5 cm FS: 14.2 % asc Aorta Diam: 2.6 cm EPSS: 1.0 cm Ao Arch Diam (Prox Trans): 1.4 cm IVSd: 1.1 cm LVPWd: 0.95 cm LV naranjo. diameter/BSA (cm/m^2): 2.5 LV sys. diameter/BSA (cm/m^2): 2.2 LA A2 area: 18.5 cm2 RA long axis: 4.6 cm LA A4 area: 15.8 cm2 RA area: 12.6 cm2 LA length (vol): 4.9 cm RA vol: 29.6 ml LA vol: 50.5 ml RA : 19.1 ml/m2 LA vol index: 32.6 ml/m2 IVC diam: 1.5 cm RVD1 (basal): 2.8 cm RVD2 (mid): 2.1 cm TAPSE: 3.1 cm Doppler Measurements & Calculations Ao V2 max: 157.1 cm/sec LVOT Max Pepito: 112.5 cm/sec Ao V2 mean: 91.0 cm/sec LV V1 max P.1 mmHg Ao max P.9 mmHg LV V1 VTI: 21.8 cm Ao mean P.9 mmHg TORI(I,D): 1.5 cm2 Ao V2 VTI: 31.9 cm TORI(V,D): 1.5 cm2 sev ratio: 0.69 TORI indexed to BSA (cm^2/m^2): 0.96 MV E max pepito: 113.8 cm/sec PA V2 max: 86.5 cm/sec MV A max pepito: 122.2 cm/sec PA V2 mean: 56.8 cm/sec MV E/A: 0.93 PA mean P.5 mmHg Med Peak E' Pepito: 5.3 cm/sec PA pr(Accel): 19.1 mmHg E/E' med: 21.6 Lat Peak E' Pepito: 7.5 cm/sec E/E' lat: 15.2 E/e' average: 18.4 MV dec time: 0.12 sec SVLVOT): 47.2 ml Reading Physician:06:38 PM
[2024-07-18] MEDS: METOPROLOL IR 25 MG TABLET PO (14:25)
[2024-07-18] MEDS: CALCIUM GLUCONATE 4.65 MEQ in SODIUM CHLORIDE 0.9% 50 ML 180 MEQ IV (14:25)
[2024-07-18 14:37] LABS: Appearance Urine UA CLEAR; Bilirubin Urine UA NEGATIVE (NEGATIVE); Color Urine UA YELLOW; Glucose Urine UA TRACE g/dL (Negative); Ketones Urine UA TRACE (NEGATIVE); Leukocyte Esterase Urine UA NEGATIVE (NEGATIVE); Nitrite Urine UA NEGATIVE (Negative); Occult Blood Urine UA 3+ (Negative); Protein Urine UA 3+ (Negative); Urobilinogen Urine UA 0.2 E.U./dL (0.2)
[2024-07-18] MEDS: HYDROMORPHONE 0.5 MG INJ IV ×3 (14:40→23:39)
[2024-07-18 14:41] LABS: Urine Volume 10mL (spun)
[2024-07-18 14:43] LABS: Bacteria Urine Moderate (10-30); RBC Urine 10-30/HPF (0-5/HPF); Squamous Epithelial Cell Urine 0-1 /HPF (0-5/HPF); WBC Urine None Seen (0-5/HPF)
[2024-07-18 14:44] LABS: Culture Indicated Urine Cult Not Indicated
[2024-07-18 15:51] LABS: BUN Creatinine Ratio 6.3 (6-22); Blood Urea Nitrogen 23 mg/dL (7-17); Calcium 7.3 mg/dL (8.4-10.2); Carbon Dioxide 19 mmol/L (22-32); Chloride 113 mmol/L (98-107); Estimated Glomerular Filt Rate 16 mL/min (>60); Glucose 88 mg/dL (70-100); HEMOLYSIS < 15 (0-50); Sodium 141 mmol/L (137-145)
[2024-07-18 15:52] LABS: Potassium 5.5 mmol/L (3.4-5.1)
[2024-07-18] MEDS: DEXTROSE 5%-0.45% NS 1,000 ML 75 ML IV (21:06)
--- NOTE | 2024-07-18 22:34 | DI.RAD.S_ITS ---
PROCEDURE: XR SHOULDER RT MIN 2V INDICATIONS: right shoulder pain TECHNIQUE: Rodriguez views of the shoulder were acquired. COMPARISON: None. FINDINGS: Bones: No fractures or dislocations. No suspicious bony lesions. Visualized ribs appear intact. Soft tissues: No suspicious soft tissue calcifications. IMPRESSION: No acute bony abnormality. Dictated by: Chi Pan M.D. on 07/19/2024 at 0:54 Approved by: Chi Pan M.D. on 07/19/2024 at 0:55
[2024-07-18] MEDS: OXYCODONE/ACETAMINOPHEN 5/325 TABLET 1 TAB PO (22:59)
[2024-07-19] VITALS (9 sets, daily range): BP systolic 95–175; BP diastolic 48–96; PULSE 75–95; RESP 10–18; TEMP 36.4–37.1; O2SAT 92–98
[2024-07-19] MEDS: diphenhydrAMINE 25 MG TABLET 50 MG PO ×2 (00:46→21:01)
--- NOTE | 2024-07-19 01:40 | PC.NURSE ---
Addendum entered by Kika Mansfield R.N. 07/19/24 06:41: Notified MD of high BG; IVF d/c'd. 20u lantus & SS ordered to be given. 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 Patient is WC bound at baseline & can use a FWW to stand-pivot w/ 1 PA. Patient is visually impaired. Patient is AxOx4. VSS, hypertensive (documented VS). Reports 7/10 pain in right-sided chest radiating to R shoulder, stating that pain increases when lifting up right arm. Denies nausea, SOB, or dizziness. Cont tele placed. Patient has a continuous glucose monitor & insulin pump, although unable to independently manage it. Mother removed CGM & insulin pump, checking sugars ACHS. MD spoke with patient via [place] cart, patient verbalized understanding of plan of care. IVF infusing, medicated as ordered for pain. Oriented to call-light.
--- NOTE | 2024-07-19 04:18 | P.HP_ITS ---
History of Present Illness History of Present Illness Chief complaint: Chest pain 3 days Narrative: 34-year-old female with past medical history of insulin-dependent diabetes with insulin pump, multiple complication from diabetes include diabetic retinopathy leading to blindness, CKD stage IV followed by [facility] nephrology CHF, hypertension presents with chest pain. Per the patient's report, the patient started to have right upper chest pain that radiates to the right side of her shoulder. The patient states that her pain is sharp and worsens with movement of her right arm. The patient does have some nausea and vomiting but denies any fever, chills, coughing or syncope. The patient also denies any shortness of breath, abdominal pain, flank pain, GI bleed, lower extreme edema or coughing. The patient also denies any hematuria or dysuria. In our emergency room, the patient was hemodynamically stable. However labs shows a potassium of 6.0 BUN 23 creatinine 3.95 calcium 7.3 AST 57 ALT 43 CK3 44 BMP 10,200 lipase 27, troponin normal EKG shows no sign of acute ischemia chest x-ray shows no clear signs of pneumonia or acute finding. The patient was treated with IV fluid calcium gluconate dextrose and insulin. Repeat potassium came down to 5.5 and creatinine 3.68. Echocardiogram was done due to elevated BNP and EF shows 50% of note previously was 45%. [facility] Medical History Abnormal liver function tests Noncompliance w/medication treatment due to intermit use of medication Irregular menstrual cycle Migraine headache History of pyelonephritis DKA (diabetic ketoacidoses) Nephrolithiasis Type 1 diabetes mellitus Surgical History Status post cholecystectomy Hx of cataract surgery Hx of local excision of skin lesion [place] teeth extracted Status post laser lithotripsy of ureteral calculus History of ureter stent Family History Father In good health Mother Cardiac disease Social History details: Engaged household members: family Smoking Status: Never smoker alcohol intake: never Meds Home Medications and Allergies Home Medications Medication Instructions Recorded Confirmed Type glucose 4 gram chewable tablet 4 gram PO Q15M PRN hypoglycemia 12/12/18 07/02/22 Rx #30 tabs glucagon (human recombinant) 1 mg 1 mg SUBCUT DIRECTED 02/16/19 07/19/24 History solution for injection (Glucagon Emergency Kit) diphenhydramine HCl 50 mg capsule 50 mg PO BEDTIME PRN Sleep 09/29/20 07/18/24 History insulin degludec 200 unit/mL (3 See Rx Instructions .Route .COMPLEX 11/13/21 07/02/22 History mL) subcutaneous pen (Tresiba FlexTouch U-200 insulin) metoprolol succinate 50 mg 50 mg PO BEDTIME 10/20/23 07/18/24 History tablet,extended release 24 hr rosuvastatin 20 mg tablet 20 mg PO BEDTIME 10/20/23 07/18/24 History blood-glucose sensor (Dexcom G7 07/19/24 07/19/24 History Sensor device) insulin aspart U-100 100 unit/mL 100 unit DAILY 07/19/24 07/19/24 History subcutaneous solution (Novolog U-100 Insulin aspart) Allergies Allergy/AdvReac Type Severity Reaction Status Date / Time arredondo [ARREDONDO] Allergy Intermediate Hives, Verified 10/26/23 10:46 pruritus iodine [IODINE] Allergy Intermediate rash, itchy Verified 10/26/23 10:46 morphine Allergy Intermediate Difficulty Verified 10/26/23 10:46 Breathing shellfish derived Allergy Intermediate rash Verified 10/26/23 10:46 [SHELLFISH DERIVED] adhesive [ADHESIVE] Allergy Unknown tape Verified 10/26/23 10:46 latex [LATEX] Allergy Unknown Hives Verified 10/26/23 10:46 amoxicillin [From Augmentin] AdvReac Severe Abnormal Verified 10/27/23 13:15 LFTs, N/V clavulanic acid AdvReac Severe Abnormal Verified 10/27/23 13:15 [From Augmentin] LFTs, N/V Review of Systems Review of Systems ROS: Yes All systems reviewed with the patient and are negative except as otherwise documented Exam Vital Signs (past 8 hours): - 07/18/24 20:25 07/18/24 21:00 07/19/24 00:37 Temperature 97.8 F 98.0 F Pulse Rate 84 86 Respiratory Rate 18 18 Blood Pressure 170/98 H 175/96 H Pulse Oximetry 94 95 Oxygen Delivery Method Room Air Oxygen Flow Rate 0 Oxygen Delivery Method Room Air Oxygen Flow Rate 0 Narrative Exam Narrative: Physical Exam: GENERAL: The patient is not in any acute distressed. Awake and alert. HEENT: Nonicteric sclerae, PERRLA, EOMI. Oropharynx clear. Moist mucous membranes. Conjunctivae appear well perfused. HEART: Regular rate and rhythm without murmurs. No lower extremities edema. LUNGS: Clear to auscultation bilaterally. No wheezing, crackles or rhonchi ABDOMEN: Soft, positive bowel sounds, nontender. SKIN: No rash, no excessive bruising, petechiae, or purpura. NEUROLOGIC: AxO x 3. Cranial nerves II-XII intact without motor/sensory deficit. Objective Labs 07/18/24 12:08 07/18/24 15:35 Labs: Laboratory Results - last 24 hr 07/18/24 07/18/24 07/18/24 12:05 12:08 14:18 WBC 7.6 RBC 3.89 L Hgb 11.1 L Hct 35.2 L MCV 90.6 MCH 28.5 MCHC 31.4 RDW 13.8 Plt Count 258 Neut % (Auto) 69.7 Lymph % (Auto) 17.1 L Cottle % (Auto) 8.4 Eos % (Auto) 3.7 Baso % (Auto) 1.1 Neut # (Auto) 5300 Lymph # (Auto) 1300 [place] # (Auto) 600 Eos # (Auto) 300 Baso # (Auto) 100 VBG pH 7.21 L VBG pCO2 45.9 VBG pO2 49 H VBG HCO3 18 L VBG Total CO2 18 L VBG O2 Saturation 75 VBG Base Excess -9.2 L FiO2 % 21.0 % Sodium 140 Potassium 6.0 H Chloride 114 H Carbon Dioxide 16 L BUN 23 H Creatinine 3.95 H Estimated GFR 15 L BUN/Creatinine Ratio 5.8 L Glucose 112 H Calcium 7.3 L Total Bilirubin 0.4 AST 57 H ALT 43 H Alkaline Phosphatase 236 H Total Creatine Kinase 344 H Troponin I < 0.012 NT-Pro-B Natriuret Pep 60800 H Total Protein 6.9 Albumin 3.6 Globulin 3.3 Albumin/Globulin Ratio 1.1 Lipase 27 Urine Color Yellow Urine Appearance Clear Urine pH 7.0 Ur Specific [place] 1.020 Urine Protein 3+ H Urine Glucose (UA) Trace H Urine Ketones Trace H Urine Occult Blood 3+ H Urine Nitrate Negative Urine Bilirubin Negative Urine Urobilinogen 0.2 Ur Leukocyte Esterase Negative Urine RBC 10-30/hpf H Urine WBC None seen Ur Squamous Epith Cells 0-1 /hpf D Urine Bacteria Moderate (10-30) H Urine Yeast 0-1/hpf Ur Culture Indicated? Cult not indicated Vol Urine Centrifuged 10ml (spun) Ketones 0.49 H 07/18/24 15:35 WBC RBC Hgb Hct MCV MCH MCHC RDW Plt Count Neut % (Auto) Lymph % (Auto) [place] % (Auto) Eos % (Auto) Baso % (Auto) Neut # (Auto) Lymph # (Auto) [place] # (Auto) Eos # (Auto) Baso # (Auto) VBG pH VBG pCO2 VBG pO2 VBG HCO3 VBG Total CO2 VBG O2 Saturation VBG Base Excess FiO2 % Sodium 141 Potassium 5.5 H Chloride 113 H Carbon Dioxide 19 L BUN 23 H Creatinine 3.68 H Estimated GFR 16 L BUN/Creatinine Ratio 6.3 Glucose 88 Calcium 7.3 L Total Bilirubin AST ALT Alkaline Phosphatase Total Creatine Kinase Troponin I NT-Pro-B Natriuret Pep Total Protein Albumin Globulin Albumin/Globulin Ratio Lipase Urine Color Urine Appearance Urine pH Ur Specific [place] Urine Protein Urine Glucose (UA) Urine Ketones Urine Occult Blood Urine Nitrate Urine Bilirubin Urine Urobilinogen Ur Leukocyte Esterase Urine RBC Urine WBC Ur Squamous Epith Cells Urine Bacteria Urine Yeast Ur Culture Indicated? Vol Urine Centrifuged Ketones Assessment & Plan Assessment & Plan narrative: Right upper chest pain and shoulder pain. Admit the patient to medical telemetry under observation. Of note troponin is negative and EKG shows no sign of acute ischemia. Patient is not hypoxic and saturating well on room air. Of note patient's state that moving her right arm does seem to exacerbate the pain in her shoulder. Will obtain chest x-ray to make sure there is no abnormality in patient's shoulder. Pain control. PT OT. Hyperkalemia. Status posttreatment of insulin, IV fluid, calcium gluconate and dextrose. Patient potassium 5.5. Continue IV fluid for now. Acute on chronic renal failure stage IV. Of note patient baseline creatinine 2.4. On admission 3.95. Our ER physician did contact patient's foxing cutting machine operator on-call and recommended to admit the patient here and does not need to be transferred. Likely from prerenal. Continue IV fluid and monitor renal function. Patient has good urine output and renal drip no ultrasound shows no sign of obstruction. Sigala catheter also placed in the ER with 600 cc out. Dehydration. IV fluid. Insulin-dependent diabetes. Will turn off patient's insulin pump and manage patient with subcu insulin while inpatient. CHF. No sign of exacerbation. Gentle with IV fluid and monitor for now. Hold home diuretics due to elevated creatinine last 2 likely to dehydration. Hypertension. Monitor blood pressure and resume home medication accordingly. HLD. Resume home Statin. DVT prophylaxis SCDs due to observational status. CODE STATUS DNR/DNI. Disposition likely home in 1 to 2 days. - As the provider of this telehealth evaluation, requested by the patient's evaluating physician, I attest that I introduced myself to the patient, provided my credentials and determined that telemedicine via a real-time, 2 way interactive audio and video platform is an appropriate and effective means of providing this service. - I reviewed the patient's chart and had a discussion with the member of the patient's treatment team. - The patient and I mutually agreed with continuation of this evaluation via telemedicine. The patient consented for the telemedicine evaluation. - This virtual encounter was taken place from [place]. The encounter was approximately 35 minutes. The nurse was present during the entire time of the encounter and was able to move the stethoscope in appropriate directions. The patient was evaluated at [facility]. Time-Based Coding :: [TOTAL MINUTES] spent with patient and on the chart (including review of chart, obtaining history, exam, reviewing outside data, placing orders, documenting exam and treatment plan, and counseling patient) on [DATE].
[2024-07-19] MEDS: HYDROMORPHONE 0.5 MG INJ IV ×5 (04:52→21:01)
[2024-07-19 05:18] LABS: Add Manual Diff / Slide Review NO; Basophils Absolute Auto 100 /uL (0-100); Basophils Percent Auto 0.7 % (0-2); Eosinophils Absolute Auto 200 /uL (0-450); Eosinophils Percent Auto 3.1 % (2-4); Hemoglobin 10.1 g/dL (12.0-16.0); Lymphocytes Absolute Auto 1300 /uL (1100-4500); Lymphocytes Percent Auto 16.6 % (25-40); Mean Corpuscular HGB Conc 31.5 % (30-36); Mean Corpuscular Hemoglobin 29.1 PG (26-34); Mean Corpuscular Volume 92.4 fL (80-100); Monocytes Absolute Auto 600 /uL (0-900); Monocytes Percent Auto 8.1 % (3-14); Neutrophils Absolute Auto 5700 /uL (1500-7000); Neutrophils Percent Auto 71.5 % (50-75); Platelet Count 213 X10^3/uL (150-400); Red Blood Cell Count 3.46 X10^6/uL (4.0-5.2); Red Cell Distribution Width 13.9 % (11.6-14.8)
[2024-07-19 05:35] LABS: BUN Creatinine Ratio 6.2 (6-22); Blood Urea Nitrogen 24 mg/dL (7-17); Calcium 7.2 mg/dL (8.4-10.2); Carbon Dioxide 16 mmol/L (22-32); Chloride 108 mmol/L (98-107); Estimated Glomerular Filt Rate 15 mL/min (>60); Glucose 412 mg/dL (70-100); HEMOLYSIS < 15 (0-50); Sodium 136 mmol/L (137-145)
[2024-07-19] MEDS: INSULIN GLARGINE 100 UNIT/ML 3ML PEN 20 UNIT SUBCUT (05:48)
[2024-07-19] MEDS: INSULIN LISPRO 100 UNIT/ML 3ML VIAL SUBCUT ×3 (05:53→16:43)
--- NOTE | 2024-07-19 07:48 | P.PN_ITS ---
Subjective Subjective Interval history: Summary: 34-year-old female with past medical history of insulin-dependent diabetes with insulin pump, multiple complication from diabetes include diabetic retinopathy leading to blindness, CKD stage IV followed by [facility] nephrology CHF, hypertension presents with chest pain. Per the patient's report, the patient started to have right upper chest pain that radiates to the right side of her shoulder. The patient states that her pain is sharp and worsens with movement of her right arm. The patient does have some nausea and vomiting but denies any fever, chills, coughing or syncope. The patient also denies any shortness of breath, abdominal pain, flank pain, GI bleed, lower extreme edema or coughing. The patient also denies any hematuria or dysuria. In our emergency room, the patient was hemodynamically stable. However labs shows a potassium of 6.0 BUN 23 creatinine 3.95 calcium 7.3 AST 57 ALT 43 CK3 44 BMP 10,200 lipase 27, troponin normal EKG shows no sign of acute ischemia chest x-ray shows no clear signs of pneumonia or acute finding. The patient was treated with IV fluid calcium gluconate dextrose and insulin. Repeat potassium came down to 5.5 and creatinine 3.68. Echocardiogram was done due to elevated BNP and EF shows 50% of note previously was 45%. S: She aspirated this morning and desaturate. She was able to clear her airway and with oxygen came back up to over 90% fairly quickly. She was had nausea for the last day. She had been doing well before this. She does have kidney disease stage 4 and has been hyperkalemic. She he was also had some right-sided pain on her chest which has been somewhat positional. Exam Vital Signs (past 8 hours): - 07/19/24 00:37 07/19/24 04:51 Temperature 98.0 F 97.8 F Pulse Rate 86 94 H Respiratory Rate 18 18 Blood Pressure 175/96 H 135/85 Pulse Oximetry 95 93 Oxygen Flow Rate 0 Oxygen Delivery Method Room Air Oxygen Flow Rate 0 Narrative Exam Narrative: NAD, alert and oriented. Soft speech. She is comfortable on oxygen, breathing and normal rate. Lungs are clear, normal rate and effort. Heart is regular, no murmur gallop or rub. Abdomen is soft, non distended. Extremities are free of edema. Objective ECG Impression: Normal sinus rhythm Prolonged QT Imaging Multiple studies:: Radiologist's impression: Shoulder x-ray: No acute bony abnormality. Echo: Interpretation Summary The left ventricle is normal in size. Left ventricular ejection fraction is estimated to be 50%. Left ventricular wall motion is normal. Diastolic parameters suggest a relaxation abnormality of the left ventricle, consistent with probable normal filling pressures. The right ventricle is normal in size and function. Pulmonary artery pressures cannot be estimated because of the lack of a measurable TR jet velocity but the IVC suggests a CVP of around 3 mmHg. The left atrium is mildly dilated. There is no significant valvular heart disease. The aortic root is normal size. Renal ultrasound: IMPRESSION: No significant kidney abnormality is seen. No hydronephrosis. Sigala catheter present. Chest x-ray: Low lung volumes, with generalized interstitial prominence. The interstitial prominence is most likely artifactual, although differential diagnosis includes mild pulmonary edema or atypical infiltrate. Heart size at the upper limits of normal. Labs 07/19/24 04:50 07/19/24 09:45 Labs: Laboratory Results - last 24 hr 07/18/24 07/18/24 07/18/24 12:05 12:08 14:18 WBC 7.6 RBC 3.89 L Hgb 11.1 L Hct 35.2 L MCV 90.6 MCH 28.5 MCHC 31.4 RDW 13.8 Plt Count 258 Neut % (Auto) 69.7 Lymph % (Auto) 17.1 L [place] % (Auto) 8.4 Eos % (Auto) 3.7 Baso % (Auto) 1.1 Neut # (Auto) 5300 Lymph # (Auto) 1300 [place] # (Auto) 600 Eos # (Auto) 300 Baso # (Auto) 100 VBG pH 7.21 L VBG pCO2 45.9 VBG pO2 49 H VBG HCO3 18 L VBG Total CO2 18 L VBG O2 Saturation 75 VBG Base Excess -9.2 L FiO2 % 21.0 % Sodium 140 Potassium 6.0 H Chloride 114 H Carbon Dioxide 16 L BUN 23 H Creatinine 3.95 H Estimated GFR 15 L BUN/Creatinine Ratio 5.8 L Glucose 112 H Calcium 7.3 L Total Bilirubin 0.4 AST 57 H ALT 43 H Alkaline Phosphatase 236 H Total Creatine Kinase 344 H Troponin I < 0.012 NT-Pro-B Natriuret Pep 40588 H Total Protein 6.9 Albumin 3.6 Globulin 3.3 Albumin/Globulin Ratio 1.1 Lipase 27 Urine Color Yellow Urine Appearance Clear Urine pH 7.0 Ur Specific [place] 1.020 Urine Protein 3+ H Urine Glucose (UA) Trace H Urine Ketones Trace H Urine Occult Blood 3+ H Urine Nitrate Negative Urine Bilirubin Negative Urine Urobilinogen 0.2 Ur Leukocyte Esterase Negative Urine RBC 10-30/hpf H Urine WBC None seen Ur Squamous Epith Cells 0-1 /hpf D Urine Bacteria Moderate (10-30) H Urine Yeast 0-1/hpf Ur Culture Indicated? Cult not indicated Vol Urine Centrifuged 10ml (spun) Ketones 0.49 H 07/18/24 07/19/24 15:35 04:50 WBC 8.0 RBC 3.46 L Hgb 10.1 L Hct 32.0 L MCV 92.4 MCH 29.1 MCHC 31.5 RDW 13.9 Plt Count 213 Neut % (Auto) 71.5 Lymph % (Auto) 16.6 L Johnson % (Auto) 8.1 Eos % (Auto) 3.1 Baso % (Auto) 0.7 Neut # (Auto) 5700 Lymph # (Auto) 1300 [place] # (Auto) 600 Eos # (Auto) 200 Baso # (Auto) 100 VBG pH VBG pCO2 VBG pO2 VBG HCO3 VBG Total CO2 VBG O2 Saturation VBG Base Excess FiO2 % Sodium 141 136 L Potassium 5.5 H 6.0 H Chloride 113 H 108 H Carbon Dioxide 19 L 16 L BUN 23 H 24 H Creatinine 3.68 H 3.90 H Estimated GFR 16 L 15 L BUN/Creatinine Ratio 6.3 6.2 Glucose 88 412 H D Calcium 7.3 L 7.2 L Total Bilirubin AST ALT Alkaline Phosphatase Total Creatine Kinase Troponin I NT-Pro-B Natriuret Pep Total Protein Albumin Globulin Albumin/Globulin Ratio Lipase Urine Color Urine Appearance Urine pH Ur Specific [place] Urine Protein Urine Glucose (UA) Urine Ketones Urine Occult Blood Urine Nitrate Urine Bilirubin Urine Urobilinogen Ur Leukocyte Esterase Urine RBC Urine WBC Ur Squamous Epith Cells Urine Bacteria Urine Yeast Ur Culture Indicated? Vol Urine Centrifuged Ketones PFSH Medical History Abnormal liver function tests Noncompliance w/medication treatment due to intermit use of medication Irregular menstrual cycle Migraine headache History of pyelonephritis DKA (diabetic ketoacidoses) Nephrolithiasis Type 1 diabetes mellitus Surgical History Status post cholecystectomy Hx of cataract surgery Hx of local excision of skin lesion [place] teeth extracted Status post laser lithotripsy of ureteral calculus History of ureter stent Family History Father In good health Mother Cardiac disease Social History details: Engaged household members: family Smoking Status: Never smoker alcohol intake: never Assessment & Plan Assessment & Plan narrative: 1. Right upper chest pain and shoulder pain. Admit the patient to medical telemetry under observation. Of note troponin is negative and EKG shows no sign of acute ischemia. Patient is not hypoxic and saturating well on room air. Of note patient's state that moving her right arm does seem to exacerbate the pain in her shoulder. Will obtain chest x-ray to make sure there is no abnormality in patient's shoulder. Pain control. PT OT. 2. Hyperkalemia. Status posttreatment of insulin, IV fluid, calcium gluconate and dextrose. Patient potassium 5.5. Continue IV fluid for now. 3. Acute on chronic renal failure stage IV. Of note patient baseline creatinine 2.4. On admission 3.95. Our ER physician did contact patient's audit clerks supervisor on-call and recommended to admit the patient here and does not need to be transferred. Likely from prerenal. Continue IV fluid and monitor renal function. Patient has good urine output and renal drip no ultrasound shows no sign of obstruction. Sigala catheter also placed in the ER with 600 cc out. 4. Dehydration. IV fluid. 5. Insulin-dependent diabetes. Will turn off patient's insulin pump and manage patient with subcu insulin while inpatient. 6. CHF. No sign of exacerbation. Gentle with IV fluid and monitor for now. Hold home diuretics due to elevated creatinine last 2 likely to dehydration. 7. Hypertension. Monitor blood pressure and resume home medication accordingly. 8. HLD. Resume home Statin. 9. Aspiration in the morning of July 19 with acute hypoxic respiratory failure, improving. Chest x-ray reveals a possible subtle right mid lung opacity. She was not coughing. PLAN: -monitor K, Q 8 hr for 24 hours. IVF stopped. -analgesia -trend troponin -Wean O2 as able. -Add Reglan in his needed for nausea. -She is DNR, this is clarified with his mother. She does follow Nephrology at [facility] but no clear level of care wishes regarding dialysis have been discussed in the past. DVT prophylaxis SCDs due to observational status. CODE STATUS DNR/DNI. Disposition likely home in 1 to 2 days. Time-Based Coding :: [TOTAL MINUTES] spent with patient and on the chart (including review of chart, obtaining history, exam, reviewing outside data, placing orders, documenting exam and treatment plan, and counseling patient) on [DATE].
[2024-07-19] MEDS: ONDANSETRON 4 MG/2 ML INJ IV (08:29)
--- NOTE | 2024-07-19 09:41 | DI.RAD.S_ITS ---
PROCEDURE: XR CHEST 1V INDICATIONS: aspiration TECHNIQUE: One view of the chest was acquired. COMPARISON: [facility], CR, XR CHEST 1V, 07/18/2024, 11:34. [facility], CR, XR CHEST 1V, 10/20/2023, 8:40. FINDINGS: Surgical changes and devices: None. Lungs and pleura: Medial right lower lung zone opacity. Mediastinum: Mediastinal contours appear normal. Heart size is normal. Bones and chest wall: No suspicious bony lesions. Overlying soft tissues appear unremarkable. IMPRESSION: Medial right lower lung zone opacity, which may indicate small volume of aspiration. Dictated by: Alberto Bateman M.D. on 07/19/2024 at 10:12 Approved by: Alberto Bateman M.D. on 07/19/2024 at 10:12
[2024-07-19 10:06] LABS: BUN Creatinine Ratio 6.5 (6-22); Blood Urea Nitrogen 27 mg/dL (7-17); Calcium 7.4 mg/dL (8.4-10.2); Carbon Dioxide 15 mmol/L (22-32); Chloride 109 mmol/L (98-107); Estimated Glomerular Filt Rate 14 mL/min (>60); Glucose 337 mg/dL (70-100); HEMOLYSIS < 15 (0-50); Potassium 5.3 mmol/L (3.4-5.1); Sodium 138 mmol/L (137-145)
--- NOTE | 2024-07-19 10:23 | PT-IP ANOTE ---
Pt discussed in rounds, rapid response called this morning and other acute medical issues including possibly starting dialysis. d/nick therapy orders.
--- NOTE | 2024-07-19 11:06 | PC.NURSE ---
Day note: 824 Patient awake, alert and oriented. Sleeping between care, received on RA sat 96%. C/O nausea, large emesis. Unable to tolerate PO fluids, declined breakfast. Zofran IV admin x 1. Notified Dr. Vega regarding nausea/vomiting and inability to tolerate Lokema PO as ordered. No C/O of chest pain, state discomfort to right area of chest only with right arm mobility and tender to palpation. 934: Patients Mother noted patient to be pale, called for help. Vel MANCINI arrived in room, called staff assist. This RN and nursing faculty arrived to room, due to patient unresponsiveness, zohreh bunch called. BP 120/67, HR 89, BG 347 mg/dl, O2 sat 65% on RA. Circumoral cyanosis noted, RT at bedside, placed patient on non-rebreather mask. Responded to Oxygen therapy, sats 95-97%. Responsive, alert, and answering questions. Chest xry and labs ordered Stat and at bedside. Patient sitting up HOB >45, suction set up available. Continous pulse ox in place. Telemetry in place. Mother at bedside, update regarding plan. Awaiting diagnostic results. Remains, normotensive. NSR
[2024-07-19] MEDS: METOCLOPRAMIDE 10 MG/2 ML INJ 5 MG IV (11:47)
--- NOTE | 2024-07-19 12:40 | PC.NURSE ---
1145: Sleeping but easily arouses, C/O nausea, new order obtained for Reglan IV. No increase WOB or resp. distress noted. BG 329 mg/dl, 4 Units coverage 1235: Changed from non rebreather mask to 3L NC, sats remain 95-96%. NO increase work of breathing noted. Coarse lungs sounds to RML/RLL. Mother at bedside providing supportive care.
--- NOTE | 2024-07-19 13:35 | CM.IDA ---
Initial Brief DCP Assessment Note Patient is 34 y/o female who presents to due to concern for chest pain the last few days. Patient was admitted due to concern for Diabetes mellitus type 1, CHF, Acute hyperkalemia, YURI injury superimposed on CKD. 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 Patient is currently requiring 3L NC oxygen. Patient's PCP is Dr. Limon, Patient has [place]/Medicaid insurance. Patient is also followed by [facility] Nephrology. Patient has hx of insulin dependent diabetes with insulin pump and multiple complications from diabetes. Patient resides in [place] with mother and step father. Per EMR patient requires assistance with ADLs. Patient has not been hospitalized since October 2023 and has been managing medical needs on an outpatient basis. Patient likely to require 1-2 days of admission prior to d/c. Plan: Likely to d/c to home with family upon medical clearance, DCP to f/u with patient and family regarding POC and any DCP needs. SEE [place] Discharge Planning/Care Management CM Discharge Assessment Start: 07/19/24 13:32 Freq: Status: Active Protocol: Document 07/19/24 13:32 LN (Rec: 07/19/24 13:34 LN [id number]) Discharge Planning Assessment Assigned Substation Designer SEE Lino DPOA/Assigned Designee Name Mother Gonzalez Contact Information [phone] Advance Directives? No Advance Directives on File No History Provided By Medical Record Has Patient been admitted in last 30 No days? Prior Living Arrangements House Household Members family Type of transporation used prior to Relies on Others admit Independent with ADL's No Is patient alert and oriented? Yes Needs Assistance With Bathing,Eating,Grooming, Managing Medications,Home Chores / Shopping DME Already Rented / Owned Wheelchair,FWW / Walker, Bedside Commode Patient/Family Preference OP PT Therapy Comment PCP is Dr. Limon at [facility] ph# . Discharge Plan Home Transportation Arrangement Family Additional Comment Pt has been going to see typewriter operator automatic on an outpatient basis and also [facility]
--- NOTE | 2024-07-19 14:10 | PC.NURSE ---
1410: Discussed with Lexii in Pharmacy patients BG levels, insulin dose to be adjusted.
[2024-07-19 20:21] LABS: BUN Creatinine Ratio 6.8 (6-22); Blood Urea Nitrogen 30 mg/dL (7-17); Calcium 7.3 mg/dL (8.4-10.2); Carbon Dioxide 19 mmol/L (22-32); Chloride 111 mmol/L (98-107); Estimated Glomerular Filt Rate 13 mL/min (>60); Glucose 87 mg/dL (70-100); HEMOLYSIS < 15 (0-50); Potassium 4.8 mmol/L (3.4-5.1); Sodium 141 mmol/L (137-145)
[2024-07-19] MEDS: SODIUM ZIRCONIUM CYCLOSILICATE 10 GM POWD.PACK PO (20:49)
[2024-07-19] MEDS: METOPROLOL ER 50 MG TABLET PO (21:02)
--- NOTE | 2024-07-19 21:27 | OT.IPNOTE ---
Notified by P.T. that patient is not appropriate for therapy services at this time. Per P.T. discharge note: Pt discussed in rounds, rapid response called this morning and other acute medical issues including possibly starting dialysis. d/nick therapy orders. Will discharge OT orders.
[2024-07-20] VITALS (11 sets, daily range): BP systolic 117–157; BP diastolic 45–89; PULSE 81–103; RESP 12–18; TEMP 36.4–37.3; O2SAT 95–99
[2024-07-20] MEDS: HYDROMORPHONE 0.5 MG INJ IV ×3 (03:53→10:05)
--- NOTE | 2024-07-20 07:35 | P.PN_ITS ---
Subjective Subjective Interval history: S: She was doing a lot better today. She has no nausea and was able to eat some Jell-O for breakfast he was going to try sandwich for lunch. Her potassium has normalized. Minimal cough. She was able to come off from oxygen with SaO2 of 97% room air. Right chest, and shoulder hurt with positional changes. Exam Vital Signs (past 8 hours): - 07/20/24 00:00 07/20/24 00:31 07/20/24 04:00 Temperature 97.5 F L 98.3 F Pulse Rate 103 H 88 86 Respiratory Rate 12 12 Blood Pressure 117/72 117/72 120/45 L Pulse Oximetry 98 96 Oxygen Flow Rate 3 0 Oxygen Delivery Method Nasal Cannula Oxygen Flow Rate 0 Narrative Exam Narrative: NAD, alert and oriented. Fluent speech. Lungs are clear, normal rate and effort. Heart is regular, no murmur gallop or rub. Abdomen is soft, non distended. Extremities are free of edema. Objective Labs 07/20/24 08:10 07/20/24 08:10 Labs: Laboratory Results - last 24 hr 07/19/24 07/19/24 09:45 20:03 Sodium 138 141 Potassium 5.3 H 4.8 Chloride 109 H 111 H Carbon Dioxide 15 L 19 L BUN 27 H 30 H Creatinine 4.15 H 4.42 H Estimated GFR 14 L 13 L BUN/Creatinine Ratio 6.5 6.8 Glucose 337 H 87 D Calcium 7.4 L 7.3 L PFSH Medical History Abnormal liver function tests Noncompliance w/medication treatment due to intermit use of medication Irregular menstrual cycle Migraine headache History of pyelonephritis DKA (diabetic ketoacidoses) Nephrolithiasis Type 1 diabetes mellitus Surgical History Status post cholecystectomy Hx of cataract surgery Hx of local excision of skin lesion [place] teeth extracted Status post laser lithotripsy of ureteral calculus History of ureter stent Family History Father In good health Mother Cardiac disease Social History details: Engaged household members: family Smoking Status: Never smoker alcohol intake: never Assessment & Plan Assessment & Plan narrative: 1. Right upper chest pain and shoulder pain. Appears to be musculoskeletal. 2. Hyperkalemia. Present on admission and improved. 3. Acute on chronic renal failure stage IV. Present on admission and improved. 4. Dehydration. IV fluid. Present on admission and improved. 5. Insulin-dependent diabetes. Will turn off patient's insulin pump and manage patient with subcu insulin while inpatient. 6. CHF. No sign of exacerbation. Gentle with IV fluid and monitor for now. Hold home diuretics due to elevated creatinine last 2 likely to dehydration. 7. Hypertension. Monitor blood pressure and resume home medication accordingly. 8. HLD. Resume home Statin. 9. Aspiration in the morning of July 19 with acute hypoxic respiratory failure, improving. Chest x-ray reveals a possible subtle right mid lung opacity. She was not coughing. She was improved and has no respiratory symptoms. PLAN: - Off O2 - advance diet - monitor glucose SONIYA: 07/21. DVT prophylaxis SCDs CODE STATUS DNR/DNI. Time-Based Coding :: [TOTAL MINUTES] spent with patient and on the chart (including review of chart, obtaining history, exam, reviewing outside data, placing orders, documenting exam and treatment plan, and counseling patient) on [DATE].
[2024-07-20 08:48] LABS: Hematocrit 29.6 % (36-46); Hemoglobin 9.5 g/dL (12.0-16.0); Mean Corpuscular HGB Conc 32.1 % (30-36); Mean Corpuscular Hemoglobin 29.2 PG (26-34); Mean Corpuscular Volume 90.9 fL (80-100); Platelet Count 208 X10^3/uL (150-400); Red Blood Cell Count 3.26 X10^6/uL (4.0-5.2); Red Cell Distribution Width 13.4 % (11.6-14.8); White Blood Cell Count 10.4 X10^3/uL (4.5-11.0)
[2024-07-20 08:59] LABS: BUN Creatinine Ratio 6.1 (6-22); Blood Urea Nitrogen 30 mg/dL (7-17); Carbon Dioxide 21 mmol/L (22-32); Chloride 107 mmol/L (98-107); Estimated Glomerular Filt Rate 11 mL/min (>60); Glucose 135 mg/dL (70-100); HEMOLYSIS < 15 (0-50); Potassium 4.4 mmol/L (3.4-5.1); Sodium 138 mmol/L (137-145)
--- NOTE | 2024-07-20 09:56 | PC.NURSE ---
Addendum entered by Fiona Zuniga R.N. 07/20/24 18:49: Patient given another .25mg of iv dilaudid, thus far she is tolerating this well. Her family just left and she is resting comfortably. Addendum entered by Fiona Zuniga R.N. 07/20/24 17:25: Patient tolerated 0.25mg of iv dilaudid. She cannot do morphine or fentanyl. Resting comfortably and voices no concerns at this time. Addendum entered by Fiona Zuniga R.N. 07/20/24 12:07: Patients blood sugar checked when she had the rapid response, it was 156. Insulin will not be given to patient at lunch as she is not eating right now. She is sleeping soundly and has color to cheeks. Her Mother is in the room and is aware of patients condition earlier. Addendum entered by Fiona Zuniga R.N. 07/20/24 11:19: At 1000 patient given 0.5mg of iv dilaudid. She was chatting with this RN and her mother. Her mom left and around 1100 patient was sleeping and making sounds like she was dreaming. This RN went to check on patient and she was clammy and non responsive. Rapid response called, ordered narcan to be given and she this helped patient wake up. RN Giovany helped with patient and when she went into the room patient was pale white and she had stopped breathing. RT in and gave patient some oxygen through non rebreather mask and she was starting to respond and talk. Patient did throw up x2.. She just came back from CT scan and she is lying supine with hob elevated and warm blankets on. Labs also drawn. Original Note: Assess- Patient is alert and oriented x4, bs 123. Insulin not given, patient is just now starting to tolerate some food. She had some jello this morning and is taking po fluids without nausea. Her breath sounds were clear upon auscultation. Patient is visiting with her mom now. Will given her 0.5mg of iv dilaudid soon for discomfort.
--- NOTE | 2024-07-20 11:11 | DI.CT.S_ITS ---
PROCEDURE: CT HEAD/BRAIN WO CON INDICATIONS: Acute AMS TECHNIQUE: Noncontrast 4.5 mm thick angled axial sections acquired from the foramen magnum to the vertex, with coronal and sagittal reformats. For radiation dose reduction, the following was used: automated exposure control, adjustment of mA and/or kV according to patient size. COMPARISON: [facility], CT, CT HEAD/BRAIN WO CON, 03/30/2023, 12:34. FINDINGS: Image quality: Diagnostic. CSF spaces: Basal cisterns are patent. No extra-axial fluid collections. Ventricles are normal in size and shape. Brain: No midline shift. No intracranial masses or hemorrhage. Toure-white matter interface is normal. Skull and face: Calvarium and visualized facial bones are intact, without suspicious lesions. Sinuses: Visualized sinuses and mastoids are clear. IMPRESSION: No acute intracranial pathology. Dictated by: Julio Kay M.D. on 07/20/2024 at 11:51 Approved by: Julio Kay M.D. on 07/20/2024 at 11:51
[2024-07-20] MEDS: NALOXONE 1 MG/ML SYRINGE 1.5 MG IV (11:12)
--- NOTE | 2024-07-20 12:07 | CM.DPNOTE ---
DCP note GUIDE DELEGATE reviewed EMR per provider in morning rounds pt likely here another few days. Per RN, pt had another episode of being unresponsive, another cope blue was called and narcan was administer. see RN notes for more. GUIDE DELEGATE met with pt in room briefly. was still crying from event. GUIDE DELEGATE gave pt comfort quilt from [employer]. Pt appreciative. GUIDE DELEGATE allowed pt to rest, mom soon seen at bedside again. P: Anticipate return home when medically stable, no DCP/CM needs at this time. CM team will continue to follow in case any DCP needs arise. RAYMOND Johnson
[2024-07-20 12:09] LABS: Troponin I 0.044 ng/mL (0.01-0.034)
[2024-07-20] MEDS: HYDROMORPHONE 0.5 MG INJ 0.25 MG IV ×3 (15:13→21:01)
[2024-07-20] MEDS: diphenhydrAMINE 25 MG TABLET 50 MG PO (20:56)
[2024-07-20] MEDS: METOPROLOL ER 50 MG TABLET PO (20:57)
[2024-07-20] MEDS: ATORVASTATIN 20 MG TABLET 40 MG PO (20:58)
[2024-07-20] MEDS: INSULIN GLARGINE 100 UNIT/ML 3ML PEN 20 UNIT SUBCUT (21:00)
[2024-07-21] MEDS: HYDROMORPHONE 0.5 MG INJ 0.25 MG IV ×4 (01:13→14:31)
[2024-07-21 03:00] VITALS: BP 101/60; PULSE 51; RESP 20; TEMP 37.5; O2SAT 97
--- NOTE | 2024-07-21 07:49 | PM.PN.1 ---
Subjective Subjective Interval history: Summary: 34-year-old female with past medical history of insulin-dependent diabetes with insulin pump, multiple complication from diabetes include diabetic retinopathy leading to blindness, CKD stage IV followed by [facility] nephrology CHF, hypertension presents with chest pain. Per the patient's report, the patient started to have right upper chest pain that radiates to the right side of her shoulder. The patient states that her pain is sharp and worsens with movement of her right arm. Hospital course: 07/19: She had an episode of altered level of consciousness and vomiting with a minor aspiration. She also became hypertensive. Symptoms then resolved. She was hyperkalemic in his resolved with IV fluids. She could not tolerate Lokelma. 07/20: She had a similar symptom of hypertension, altered level consciousness and vomiting with symptoms on resolving. Her glucose was normal at 150. A CT of the brain was unremarkable. Her hypertension resolved as did her nausea. An echo is normal, troponin was very mildly elevated at 0.044. She does have chronic kidney disease with a creatinine of close to 5. Potassium was normal. S: She feels better today, no nausea. She was on 2 L of oxygen and does desaturate to 87% on room air. She denies any pain complaints today. She was followed by [facility] Nephrology. Her creatinine has increased to 5.9 from her admission of 3.9 despite some IV fluids. Her potassium is 5.1. Exam Vital Signs (past 8 hours): - 07/21/24 03:00 Temperature 99.5 F Pulse Rate 51 L Respiratory Rate 20 Blood Pressure 101/60 Pulse Oximetry 97 Oxygen Flow Rate 1.5 Fraction of Inspired Oxygen 32 SaO2/FiO2 Ratio 296 Oxygen Delivery Method Nasal Cannula Oxygen Flow Rate 1.5 Narrative Exam Narrative: NAD, alert and oriented. Fluent speech. Comfortable on 2 L of oxygen. Lungs are clear, normal rate and effort. Heart is regular, no murmur gallop or rub. Abdomen is soft, non distended. Extremities are free of edema. Objective ECG Impression: Normal sinus rhythm Prolonged QT Imaging Head CT: Shoulder x-ray: echocardiogram: Renal ultrasound: Chest x-ray:: Radiologist's impression: Head CT: No acute intracranial pathology Chest x-ray: Medial right lower lung zone opacity, which may indicate small volume of aspiration. Shoulder x-ray: No acute bony abnormality. Echo: The left ventricle is normal in size. Left ventricular ejection fraction is estimated to be 50%. Left ventricular wall motion is normal. Diastolic parameters suggest a relaxation abnormality of the left ventricle, consistent with probable normal filling pressures. The right ventricle is normal in size and function. Pulmonary artery pressures cannot be estimated because of the lack of a measurable TR jet velocity but the IVC suggests a CVP of around 3 mmHg. The left atrium is mildly dilated. There is no significant valvular heart disease. The aortic root is normal size. Renal ultrasound: No significant kidney abnormality is seen. No hydronephrosis. Sigala catheter present. Labs 07/21/24 08:12 07/21/24 08:12 Labs: Laboratory Results - last 24 hr 07/20/24 07/20/24 08:10 11:32 WBC 10.4 RBC 3.26 L Hgb 9.5 L Hct 29.6 L MCV 90.9 MCH 29.2 MCHC 32.1 RDW 13.4 Plt Count 208 Sodium 138 Potassium 4.4 Chloride 107 Carbon Dioxide 21 L BUN 30 H Creatinine 4.95 H Estimated GFR 11 L BUN/Creatinine Ratio 6.1 Glucose 135 H Calcium 7.0 L Troponin I 0.044 [facility] Medical History Abnormal liver function tests Noncompliance w/medication treatment due to intermit use of medication Irregular menstrual cycle Migraine headache History of pyelonephritis DKA (diabetic ketoacidoses) Nephrolithiasis Type 1 diabetes mellitus Surgical History Status post cholecystectomy Hx of cataract surgery Hx of local excision of skin lesion [place] teeth extracted Status post laser lithotripsy of ureteral calculus History of ureter stent Family History Father In good health Mother Cardiac disease Social History details: Engaged household members: family Smoking Status: Never smoker alcohol intake: never Assessment & Plan Assessment & Plan narrative: 1. Right upper chest pain and shoulder pain. Appears to be musculoskeletal. 2. Hyperkalemia. Present on admission and improved. 3. Acute on chronic renal failure stage IV. Present on admission and Worse today. 4. Dehydration. IV fluid. Present on admission and improved. 5. Insulin-dependent diabetes. Will turn off patient's insulin pump and manage patient with subcu insulin while inpatient. 6. CHF. No sign of exacerbation. Gentle with IV fluid and monitor for now. Hold home diuretics due to elevated creatinine last 2 likely to dehydration. 7. Hypertension. Monitor blood pressure and resume home medication accordingly. 8. HLD. Resume home Statin. 9. Aspiration in the morning of July 19 with acute hypoxic respiratory failure, improving. Chest x-ray reveals a possible subtle right mid lung opacity. She was not coughing. She was improved and has no respiratory symptoms. 10. Acute hypoxic respiratory failure, new and active. PLAN: - Discussed with Nephrology at [facility], she was by Dr. Mckinnon. He recommended transfer. [facility] appears to be full and they are boarding 16 in the ED. I will contact [facility] transfer line. - monitor glucose. - [facility] full. - Accepted at [facility] pending a bed (12-24 hours). Time-Based Coding :: [TOTAL MINUTES] spent with patient and on the chart (including review of chart, obtaining history, exam, reviewing outside data, placing orders, documenting exam and treatment plan, and counseling patient) on [DATE].
[2024-07-21 08:00] VITALS: BP 127/79; PULSE 82; RESP 15; TEMP 36.8; O2SAT 96
[2024-07-21 08:30] LABS: Hematocrit 29.5 % (36-46); Hemoglobin 9.4 g/dL (12.0-16.0); Mean Corpuscular HGB Conc 31.9 % (30-36); Platelet Count 211 X10^3/uL (150-400); Red Blood Cell Count 3.24 X10^6/uL (4.0-5.2); Red Cell Distribution Width 13.8 % (11.6-14.8); White Blood Cell Count 10.2 X10^3/uL (4.5-11.0)
[2024-07-21 08:41] LABS: Alanine Aminotransferase 36 IU/L (<35); Albumin 3.4 g/dL (3.5-5.0); Albumin Globulin Ratio 1.1 (1.0-2.8); Alkaline Phosphatase 187 U/L (38-126); Aspartate Aminotransferase 42 IU/L (14-36); BUN Creatinine Ratio 5.2 (6-22); Bilirubin Total 0.5 mg/dL (0.2-1.3); Blood Urea Nitrogen 31 mg/dL (7-17); Calcium 6.9 mg/dL (8.4-10.2); Carbon Dioxide 21 mmol/L (22-32); Chloride 109 mmol/L (98-107); Estimated Glomerular Filt Rate 9 mL/min (>60); Globulin 3.1 g/dL (1.7-4.1); Glucose 46 mg/dL (70-100); HEMOLYSIS < 15 (0-50); Lactate (Lactic Acid) 0.6 mmol/L (0.7-2.1); Potassium 5.1 mmol/L (3.4-5.1); Sodium 140 mmol/L (137-145); Total Protein 6.5 g/dL (6.3-8.2)
[2024-07-21 08:53] LABS: Troponin I 0.023 ng/mL (0.01-0.034)
[2024-07-21 11:29] VITALS: O2SAT 97
--- NOTE | 2024-07-21 11:38 | CM.DPNOTE ---
Addendum entered by RAYMOND Johnson 07/21/24 14:42: Per provider PN, Discussed with Nephrology at [facility], they recommended transfer. Accepted at [facility], pending bed availiability (12-16hrs) CM team will continue to follow as needed SL Original Note: DCP note PERSONNEL SUPERVISOR reviewed EMR per provider in morning rounds, plan is to wean off O2 today. potential stress test here prior to dc. Per RN, blood sugars low today. no new CM/DCP needs from RN perspective. family at bedside. Per PN, anticipate dc tomorrow vs 07/23. P: anticipate return home with family support when medically stable and OP f/u. Will continue to follow in case any DCP needs arise RAYMOND Johnson
[2024-07-21 12:00] VITALS: BP 174/72; PULSE 85; RESP 15; TEMP 37.1; O2SAT 97
[2024-07-21] MEDS: INSULIN LISPRO 100 UNIT/ML 3ML VIAL SUBCUT (12:00)
--- NOTE | 2024-07-21 15:53 | P.DS_ITS ---
History of Present Illness History of Present Illness Chief complaint: Chest pain 3 days Narrative: From H&P: 34-year-old female with past medical history of insulin-dependent diabetes with insulin pump, multiple complication from diabetes include diabetic retinopathy leading to blindness, CKD stage IV followed by [facility] nephrology CHF, hypertension presents with chest pain. Per the patient's report, the patient started to have right upper chest pain that radiates to the right side of her shoulder. The patient states that her pain is sharp and worsens with movement of her right arm. The patient does have some nausea and vomiting but denies any fever, chills, coughing or syncope. The patient also denies any shortness of breath, abdominal pain, flank pain, GI bleed, lower extreme edema or coughing. The patient also denies any hematuria or dysuria. In our emergency room, the patient was hemodynamically stable. However labs shows a potassium of 6.0 BUN 23 creatinine 3.95 calcium 7.3 AST 57 ALT 43 CK3 44 BMP 10,200 lipase 27, troponin normal EKG shows no sign of acute ischemia chest x-ray shows no clear signs of pneumonia or acute finding. The patient was treated with IV fluid calcium gluconate dextrose and insulin. Repeat potassium came down to 5.5 and creatinine 3.68. Echocardiogram was done due to elevated BNP and EF shows 50% of note previously was 45%. Discharge Providers Provider Date of admission: 07/18/24 18:07 Discharge Date: 07/21/24 Primary care physician: Maria Ines Limon DO Consults: 07/18/24 20:28 Consult to Occupational Therapy Evaluate & Treat Comment: Physician Instructions: Evaluate and treat Consult to Physical Therapy Evaluate & Treat Comment: Physician Instructions: Evaluate and Treat Discharge provider: Pedro Vega MD Summary Hospital Course Discharge Diagnosis: 1. Right upper chest pain and shoulder pain. Appears to be musculoskeletal. Present on admission and active. 2. Hyperkalemia. Present on admission and improved. Present on admission and active. 3. Acute on chronic renal failure stage IV. Present on admission and Worsening. 4. Dehydration. IV fluid. Present on admission and improved. 5. Insulin-dependent diabetes. Will turn off patient's insulin pump and manage patient with subcu insulin while inpatient. 6. diastolic heart failure. present on admission and active. 7. Hypertension. Present on admission and relatively stable other than what her 2 episodes of nausea, vomiting and altered mental status with transient hypertension. 8. HLD. Stable. 9. Aspiration in the morning of July 19 with acute hypoxic respiratory failure, improving. Chest x-ray reveals a possible subtle right mid lung opacity. She was not coughing. She was improved and has no respiratory symptoms. 10. Blindness in both eyes, present on admission and active. Hospital Course: Patient presents with right-sided chest and neck pain. She was initially found to have a very minimally elevated troponin and normal chest x-ray. She did have hyperkalemia in context of acute kidney injury on her chronic renal failure stage 4. She was treated with IV fluids and had difficulties with recurrent nausea and vomiting prohibiting Lokelma to be administered. She was given some IV fluids with resolution of her hypokalemia but she did have 2 episodes of acute vomiting with hypertension and altered mental status both on July 19 of July 20. She did have bradycardia but no other cardiac abnormalities on those days. An echocardiogram was negative for wall motion changes and had normal EF. She had a mildly elevated troponin on the and a normal troponin on the 21 of July. Unfortunately, her potassium increased to 5.1 and her creatinine went from 3.9 up to 5.9 in spite of her fluids. In addition she became hypoxemic and did require 2 L of oxygen. She would desaturate to 87% on room air within about 30 seconds. On July 19 when she had her initial episode of altered level consciousness and acute vomiting she did aspirate a small amount of material. Her chest x-ray revealed a right mid lung subtle infiltrate but she had no fevers or hypoxemia until July 21. She was discussed with her nephrologists at [facility] with recommendations for transfer for probable forced diuresis and/or initiation of dialysis. Unfortunately [facility] had no capacity to accept transfers and then [facility] was contacted. They were able to accommodate and assist with her care. She seems high probability for needing initiation of dialysis or least transient dialysis. This is all explained to the patient and her family and they do understand and agree with the transfer. Status at Discharge Cognitive/behavioral status at discharge: oriented Functional status at discharge: uses cane/walker Overall status at discharge: patient is progressing back to baseline Time Spent with Patient Time spent: Greater than 30 minutes Exam Vital Signs (past 8 hours): - 07/21/24 08:00 07/21/24 11:29 07/21/24 12:00 Temperature 98.3 F 98.7 F Pulse Rate 82 85 Respiratory Rate 15 15 Blood Pressure 127/79 174/72 H Pulse Oximetry 96 97 97 Oxygen Delivery Method Nasal Cannula Oxygen Flow Rate 1 Fraction of Inspired Oxygen 32 SaO2/FiO2 Ratio 296 Oxygen Delivery Method Nasal Cannula Oxygen Flow Rate 1 Narrative Exam Narrative: NAD, alert and oriented. Fluent speech. Lungs are clear, normal rate and effort. Heart is regular, no murmur gallop or rub. Abdomen is soft, non distended. Extremities are free of edema. Objective ECG Impression: Normal sinus rhythm Prolonged QT Imaging Multiple studies: : Radiologist's impression: Head CT: No acute intracranial pathology Chest x-ray: Medial right lower lung zone opacity, which may indicate small volume of aspiration. Shoulder x-ray: No acute bony abnormality. Echo: The left ventricle is normal in size. Left ventricular ejection fraction is estimated to be 50%. Left ventricular wall motion is normal. Diastolic parameters suggest a relaxation abnormality of the left ventricle, consistent with probable normal filling pressures. The right ventricle is normal in size and function. Pulmonary artery pressures cannot be estimated because of the lack of a measurable TR jet velocity but the IVC suggests a CVP of around 3 mmHg. The left atrium is mildly dilated. There is no significant valvular heart disease. The aortic root is normal size. Renal ultrasound: No significant kidney abnormality is seen. No hydronephrosis. Sigala catheter present. Labs 07/21/24 08:12 07/21/24 08:12 Labs: Laboratory Results - last 24 hr 07/21/24 08:12 WBC 10.2 RBC 3.24 L Hgb 9.4 L Hct 29.5 L MCV 91.0 MCH 29.0 MCHC 31.9 RDW 13.8 Plt Count 211 Sodium 140 Potassium 5.1 Chloride 109 H Carbon Dioxide 21 L BUN 31 H Creatinine 5.93 H Estimated GFR 9 L BUN/Creatinine Ratio 5.2 L Glucose 46 L Lactate 0.6 L Calcium 6.9 L Total Bilirubin 0.5 AST 42 H ALT 36 H Alkaline Phosphatase 187 H Troponin I 0.023 Total Protein 6.5 Albumin 3.4 L Globulin 3.1 Albumin/Globulin Ratio 1.1 [facility] Medical History Abnormal liver function tests Noncompliance w/medication treatment due to intermit use of medication Irregular menstrual cycle Migraine headache History of pyelonephritis DKA (diabetic ketoacidoses) Nephrolithiasis Type 1 diabetes mellitus Surgical History Status post cholecystectomy Hx of cataract surgery Hx of local excision of skin lesion [place] teeth extracted Status post laser lithotripsy of ureteral calculus History of ureter stent Family History Father In good health Mother Cardiac disease Social History details: Engaged household members: family Smoking Status: Never smoker alcohol intake: never Discharge Assessment & Plan Assessment and Plan Assessment: 1. Right upper chest pain and shoulder pain. Appears to be musculoskeletal. Present on admission and active. 2. Hyperkalemia. Present on admission and improved. Present on admission and active. 3. Acute on chronic renal failure stage IV. Present on admission and Worsening. Plan of Treatment: Transfer to [facility] for Nephrology consultation. She may benefit from forced diuresis but is at risk for hyperkalemia and need for urgent dialysis given her worsening creatinine and hypoxemia. Discharge Plan Discharge Plan Patient Disposition: [facility] Other facility: [facility] Under care of provider: Dr Leo. Provider Discharge Comment: Transfer to [place] for higher level care, possible need for dialysis. Diet/Activity/Treatments Diet: Carb-consistent/Diabetic Discharge Data Primary Care Provider: Maria Ines Limon
[2024-07-21] MEDS: LORazepam 0.5 MG TABLET PO (15:56)
[2024-07-21 16:00] VITALS: BP 142/77; PULSE 89; RESP 18; TEMP 37.2; O2SAT 96
--- NOTE | 2024-07-21 17:49 | PC.NURSE ---
Report called to Mariel at [facility]. Reviewed hospital course. Reviewed current labs, increase to Kidney lab values. Possible diuresis vs dialysis. Pt is general puffy and does have some edema to the feet but not much, about 2+, Pt is diabetic, reviewed blood glucose levels. 43 -> Juice and some sugar. Glucose then 47 and received more milk and juice. Diet was changed from clears to general consistent carb diet. Glucose was 156 for bkft, did not cover w/ssc. At Lunch glucose was 293, she received ssc, did a glucose check at 3 since she will transferring, glucose then was 174, greater than 100 point drop. No coverage as she will transferring to [facility], and not eating dinner. Paramedics asked for a glucose prior to leaving at 1630, glucose was 176. (Dr. Vega is aware of glucoses) Pt has been on tele SR, has a clark, and is blind. She has an artificial eye on the lt and is blind in the rt. Received ativan prior to leaving and has had two doses of dilaudid for rt shoulder pain. She did receive narcan yesterday and dosage was reduced of dilaudid, She has had no problems since. Elisabeth questions were answered. She can return call prior to 1929 is she thinks of something else she needs. Pt d/c via grant to [facility].
== END 2024-07-21 17:00 | disposition short-term general hospital (02) | DRG 682 ==
LOC: ED 11:09 → AC 18:07
PROVIDERS: Hospitalist; Internal Medicine; Admitting Provider Family Medicine; Emergency Provider Emergency Medicine; PCP Student in an Organized Health Care Education/Training Program; Referring Provider Emergency Medicine; Visit Provider Family Medicine
DX: N17.9 Acute kidney failure, unspecified (principal); J96.01 Acute respiratory failure with hypoxia; I13.0 Hypertensive heart and chronic kidney disease with heart failure and stage 1 through stage 4 chronic kidney disease, or unspecified chronic kidney disease; I50.30 Unspecified diastolic (congestive) heart failure; R07.9 Chest pain, unspecified; E87.5 Hyperkalemia; N18.4 Chronic kidney disease, stage 4 (severe); E10.319 Type 1 diabetes mellitus with unspecified diabetic retinopathy without macular edema; E10.22 Type 1 diabetes mellitus with diabetic chronic kidney disease; T17.918A Gastric contents in respiratory tract, part unspecified causing other injury, initial encounter; E78.5 Hyperlipidemia, unspecified; H54.3 Unqualified visual loss, both eyes; R79.89 Other specified abnormal findings of blood chemistry; R41.82 Altered mental status, unspecified; W44.8XXA Other foreign body entering into or through a natural orifice, initial encounter; Z96.41 Presence of insulin pump (external) (internal); Z66 Do not resuscitate
CPT/HCPCS: 36415; 70450; 71045; 73030; 76770; 80048; 80053; 81001; 82009; 82550; 82805; 82962; 83605; 83690; 83880; 84484; 85025; 85027; 93005; 93010; 93306; 96361; 96365; 96375; 96376; 99284; 99285; J0612; J1171; J1815; J2310; J2405; J2765

== ENCOUNTER 2024-08-25 10:47 | Emergency (ER) | payer OTHER, SELFPAY ==
[2024-07-18 20:44] VITALS: BMI 27.5
[2024-08-25] VITALS (14 sets, daily range): BP systolic 140–182; BP diastolic 69–89; PULSE 79–81; RESP 12–14; TEMP 36.6; O2SAT 93–99; BMI 23.6
--- NOTE | 2024-08-25 11:20 | PC.NURSE ---
Pt asked about menstrual cycle. Pt reports her last menses was years ago
[2024-08-25] MEDS: ONDANSETRON 4 MG/2 ML INJ IV (11:40)
[2024-08-25 11:41] LABS: Add Manual Diff / Slide Review NO; Basophils Absolute Auto 100 /uL (0-100); Eosinophils Absolute Auto 100 /uL (0-450); Eosinophils Percent Auto 1.2 % (2-4); Hematocrit 33.7 % (36-46); Hemoglobin 10.9 g/dL (12.0-16.0); Lymphocytes Absolute Auto 800 /uL (1100-4500); Lymphocytes Percent Auto 9.6 % (25-40); Mean Corpuscular HGB Conc 32.4 % (30-36); Mean Corpuscular Hemoglobin 29.9 PG (26-34); Mean Corpuscular Volume 92.4 fL (80-100); Monocytes Absolute Auto 500 /uL (0-900); Monocytes Percent Auto 5.5 % (3-14); Neutrophils Absolute Auto 7300 /uL (1500-7000); Neutrophils Percent Auto 82.7 % (50-75); Platelet Count 244 X10^3/uL (150-400); Red Blood Cell Count 3.64 X10^6/uL (4.0-5.2); Red Cell Distribution Width 14.6 % (11.6-14.8); White Blood Cell Count 8.8 X10^3/uL (4.5-11.0)
[2024-08-25] MEDS: SODIUM CHLORIDE 0.9% 1,000 ML 1000 ML IV (11:41)
[2024-08-25] MEDS: HYDROMORPHONE 1 MG INJ IV (11:41)
--- NOTE | 2024-08-25 11:41 | EKG_ITS ---
[address] [address] Test Date: 2024-08-25 Pat Name: Sarabjit Jimenes Department: Room: Gender: Female Superintendent Nonselling: BOB : 1990 Requested By: Order Number: [id number] Reading MD: Mike Fu MD Measurements Intervals [place] Rate: 82 P: 44 MO: 136 QRS: -1 QRSD: 78 T: 42 QT: 394 QTc: 460 Interpretive Statements Normal sinus rhythm Electronically Signed On 08-25-2024 11:53:38 PDT by Mike Fu MD
--- NOTE | 2024-08-25 11:42 | DI.CT.S_ITS ---
PROCEDURE: CT ABDOMEN PELVIS WO CON INDICATIONS: Abdominal pain/vomiting TECHNIQUE: Axial sections were acquired from the lung bases to the pubic symphysis. Coronal and sagittal reformats were performed. For radiation dose reduction, the following was used: automated exposure control, adjustment of mA and/or kV according to patient size. COMPARISON: [facility], CT, CT ABDOMEN PELVIS WO CON, 02/25/2019, 23:35. FINDINGS: Image quality: Diagnostic. Lower Chest: Small right pleural effusion is seen. Trace left pleural effusion is also noted. Compressive atelectasis/small infiltrates are noted at bilateral lung bases. Heart size is normal, no pericardial effusion. URINARY: Right Kidney: No stones or hydronephrosis. Right Ureter: No hydroureter. Left Kidney: No stones or hydronephrosis. Left Ureter: No hydroureter. Bladder: Mild diffuse bladder wall thickening is seen. No stones. ABDOMEN: Liver: No contour-deforming solid mass. Gallbladder: Gallbladder is surgically absent. Biliary ducts: No biliary dilation. Pancreas: No ductal dilation. Spleen: Size is within normal limits. Adrenal Glands: No adrenal nodules. Stomach and Bowel: There is no bowel obstruction. Mild fecal stasis in the colon is seen. No abnormal bowel wall thickening or mesenteric fat stranding. No abscess collection. Peritoneum: No abnormal intraperitoneal fluid. No free air. Ventral Wall: No hernia. Abdominal Nodes: No enlarged retroperitoneal or mesenteric lymph nodes. Vessels: Aorta and inferior vena cava are normal in size. PELVIS: Pelvic Organs: Unremarkable. Pelvic Nodes: Unremarkable. Miscellaneous: No inguinal hernias are seen. Bones: No aggressive appearing bony lesions. IMPRESSION: 1. No bowel obstruction or abnormal bowel wall thickening. No free fluid or free air. 2. No obstructing renal stones or hydronephrosis. Nonspecific mild bilateral perinephric fat stranding. Pyelonephritis cannot be excluded. 3. Diffuse bladder wall thickening concerning for cystitis. No calcified bladder stones. 4. Other incidental findings as above. Dictated by: Julio Kay M.D. on 08/25/2024 at 12:34 Approved by: Julio Kay M.D. on 08/25/2024 at 12:40
--- NOTE | 2024-08-25 11:44 | ED.NAVMDI ---
HPI - Nausea/Vomiting/Diarrhea General Chief complaint: Nausea/Vomiting/Diarrhea Stated complaint: Abd pain, Vomitting Time Seen by Provider: 08/25/24 10:57 Source: patient and EMS Mode of arrival: EMS History of Present Illness HPI Narrative: Patient brought in by ambulance from home. Started with vomiting last night and through the morning. Also developed abdominal pain generalized abdominal pain after the vomiting. No fever chills. Patient does have long history of insulin-dependent diabetes, has a insulin pump. Her blood sugar she states usually around 200s. She states her hemoglobin A1c last checked was 5.8. She recently seen here last month/admitted and then had to be transferred to [facility]. She did not get dialysis. She is meeting with nephrology services to determine whether she needs dialysis. She is amenable to dialysis. Verbalized she wishes to be DNR DNI with full treatment. She has no Polst form. She would like to have this form completed with her mother. She is legally blind. She has been doing well at home since her discharge from [facility] last month. Ejection fraction 50% on echocardiogram July 18, 2024. Please see transfer note from Dr. Vega, hospitalist from [place] [address] Discharge Summary Patient: Sarabjit Jimenes MR#: [id number] : 1990 Acct:[id number] Age/Sex: 34 / F Admit Date: 07/18/24 Provider: Pedro Vega MD History of Present Illness History of Present Illness Chief complaint: Chest pain 3 days Narrative: From H&P: 34-year-old female with past medical history of insulin-dependent diabetes with insulin pump, multiple complication from diabetes include diabetic retinopathy leading to blindness, CKD stage IV followed by [facility] nephrology CHF, hypertension presents with chest pain. Per the patient's report, the patient started to have right upper chest pain that radiates to the right side of her shoulder. The patient states that her pain is sharp and worsens with movement of her right arm. The patient does have some nausea and vomiting but denies any fever, chills, coughing or syncope. The patient also denies any shortness of breath, abdominal pain, flank pain, GI bleed, lower extreme edema or coughing. The patient also denies any hematuria or dysuria. In our emergency room, the patient was hemodynamically stable. However labs shows a potassium of 6.0 BUN 23 creatinine 3.95 calcium 7.3 AST 57 ALT 43 CK3 44 BMP 10,200 lipase 27, troponin normal EKG shows no sign of acute ischemia chest x-ray shows no clear signs of pneumonia or acute finding. The patient was treated with IV fluid calcium gluconate dextrose and insulin. Repeat potassium came down to 5.5 and creatinine 3.68. Echocardiogram was done due to elevated BNP and EF shows 50% of note previously was 45%. Summary Hospital Course Discharge Diagnosis: 1. Right upper chest pain and shoulder pain. Appears to be musculoskeletal. Present on admission and active. 2. Hyperkalemia. Present on admission and improved. Present on admission and active. 3. Acute on chronic renal failure stage IV. Present on admission and Worsening. 4. Dehydration. IV fluid. Present on admission and improved. 5. Insulin-dependent diabetes. Will turn off patient's insulin pump and manage patient with subcu insulin while inpatient. 6. diastolic heart failure. present on admission and active. 7. Hypertension. Present on admission and relatively stable other than what her 2 episodes of nausea, vomiting and altered mental status with transient hypertension. 8. HLD. Stable. 9. Aspiration in the morning of July 19 with acute hypoxic respiratory failure, improving. Chest x-ray reveals a possible subtle right mid lung opacity. She was not coughing. She was improved and has no respiratory symptoms. 10. Blindness in both eyes, present on admission and active. Hospital Course: Patient presents with right-sided chest and neck pain. She was initially found to have a very minimally elevated troponin and normal chest x-ray. She did have hyperkalemia in context of acute kidney injury on her chronic renal failure stage 4. She was treated with IV fluids and had difficulties with recurrent nausea and vomiting prohibiting Lokelma to be administered. She was given some IV fluids with resolution of her hypokalemia but she did have 2 episodes of acute vomiting with hypertension and altered mental status both on July 19 of July 20. She did have bradycardia but no other cardiac abnormalities on those days. An echocardiogram was negative for wall motion changes and had normal EF. She had a mildly elevated troponin on the and a normal troponin on the 21 of July. Unfortunately, her potassium increased to 5.1 and her creatinine went from 3.9 up to 5.9 in spite of her fluids. In addition she became hypoxemic and did require 2 L of oxygen. She would desaturate to 87% on room air within about 30 seconds. On July 19 when she had her initial episode of altered level consciousness and acute vomiting she did aspirate a small amount of material. Her chest x-ray revealed a right mid lung subtle infiltrate but she had no fevers or hypoxemia until July 21. She was discussed with her nephrologists at [facility] with recommendations for transfer for probable forced diuresis and/or initiation of dialysis. Unfortunately [facility] had no capacity to accept transfers and then [facility] was contacted. They were able to accommodate and assist with her care. She seems high probability for needing initiation of dialysis or least transient dialysis. This is all explained to the patient and her family and they do understand and agree with the transfer. Status at Discharge Cognitive/behavioral status at discharge: oriented Functional status at discharge: uses cane/walker Overall status at discharge: patient is progressing back to baseline Related Data Home Medications Medication Instructions Recorded Confirmed glucagon (human recombinant) 1 mg 1 mg SUBCUT DIRECTED 02/16/19 07/19/24 solution for injection (Glucagon Emergency Kit) diphenhydramine HCl 50 mg capsule 50 mg PO BEDTIME PRN Sleep 09/29/20 07/18/24 insulin degludec 200 unit/mL (3 See Rx Instructions .Route .COMPLEX 11/13/21 07/02/22 mL) subcutaneous pen (Tresiba FlexTouch U-200 insulin) metoprolol succinate 50 mg 50 mg PO BEDTIME 10/20/23 07/18/24 tablet,extended release 24 hr rosuvastatin 20 mg tablet 20 mg PO BEDTIME 10/20/23 07/18/24 blood-glucose sensor (Dexcom G7 07/19/24 07/19/24 Sensor device) insulin aspart U-100 100 unit/mL 100 unit DAILY 07/19/24 07/19/24 subcutaneous solution (Novolog U-100 Insulin aspart) Previous Rx's Medication Instructions Recorded glucose 4 gram chewable tablet 4 gram PO Q15M PRN hypoglycemia 12/12/18 #30 tabs ondansetron 4 mg disintegrating 4 mg PO Q6H PRN nausea and 08/25/24 tablet vomiting #20 tabs Allergies Allergy/AdvReac Type Severity Reaction Status Date / Time abdalla [ABDALLA] Allergy Intermediate Hives, Verified 10/26/23 10:46 pruritus iodine [IODINE] Allergy Intermediate rash, itchy Verified 10/26/23 10:46 morphine Allergy Intermediate Difficulty Verified 10/26/23 10:46 Breathing shellfish derived Allergy Intermediate rash Verified 10/26/23 10:46 [SHELLFISH DERIVED] adhesive [ADHESIVE] Allergy Unknown tape Verified 10/26/23 10:46 latex [LATEX] Allergy Unknown Hives Verified 10/26/23 10:46 amoxicillin [From Augmentin] AdvReac Severe Abnormal Verified 10/27/23 13:15 LFTs, N/V clavulanic acid AdvReac Severe Abnormal Verified 10/27/23 13:15 [From Augmentin] LFTs, N/V fentanyl AdvReac Severe other Verified 07/20/24 17:30 Review of Systems Review of Systems Narrative: GENERAL: Negative chills, fatigue, malaise, fever, sweats. HEENT: Negative sinus pain, ear pain, sore throat RESPIRATORY: Negative dyspnea, cough CARDIOVASCULAR: Negative chest pain, palpitations GASTROINTESTINAL: Positive vomiting, nausea, abdominal pain : Negative dysuria, frequency, hematuria MUSCULOSKELETAL: Negative muscle or bony pain SKIN: Negative rash, skin lesions NEUROLOGIC: Negative weakness, numbness ROS Unobtainable: All systems reviewed & are unremarkable except as noted in HPI and below Patient History Medical History Abnormal liver function tests Noncompliance w/medication treatment due to intermit use of medication Irregular menstrual cycle Migraine headache History of pyelonephritis DKA (diabetic ketoacidoses) Nephrolithiasis Type 1 diabetes mellitus Surgical History Status post cholecystectomy Hx of cataract surgery Hx of local excision of skin lesion Morgan teeth extracted Status post laser lithotripsy of ureteral calculus History of ureter stent Family History Father In good health Mother Cardiac disease Social History details: Engaged household members: family Smoking Status: Never smoker alcohol intake: never Smoking Status: Never smoker alcohol intake frequency: holidays/special occasions only Exam Narrative Exam Narrative: GENERAL: in no distress, not toxic not dyspneic HEAD: Normocephalic. EYES: Pupils equal round ENT: Mucous membranes moist. NECK: Trachea midline. CARDIOVASCULAR: Regular rate and rhythm RESPIRATORY: Clear to auscultation. Breath sounds equal bilaterally. No wheezes, rales, or rhonchi. GASTROINTESTINAL: Abdomen soft, mild diffuse tenderness. No McBurney point tenderness. Negative Gómez's sign. No pain out of portion exam. No CVA tenderness no guarding or rebound. No peritoneal signs. Bowel sounds are present. EXTREMITIES: No gross deformities. BACK: No flank tenderness. NEURO: AOx4. Clear speech SKIN: Warm and dry PSYCH: Not anxious, is cooperative Initial Vital Signs Initial Vital Signs: Vital Signs Pulse Rate 81 08/25/24 10:48 Respiratory Rate 12 08/25/24 10:48 Course Orders Ordered: ED Orders 08/25/24 11:17 EKG-12 Lead Stat 08/25/24 11:21 VBG [Venous Blood Gas] STAT 08/25/24 11:30 Complete Blood Count AUTO DIFF Stat Comprehensive Metabolic Panel Stat Ketones (Beta-Hydroxybutyrate) Stat Lipase Stat 08/25/24 11:42 CT abdomen pelvis wo con Stat 08/25/24 12:00 Urinalysis and Microscopic Stat 08/25/24 12:13 Venous Blood Gas Routine 08/25/24 13:20 Comprehensive Metabolic Panel Stat 08/25/24 13:27 Venous Blood Gas STAT 08/25/24 13:31 Venous Blood Gas Routine Hydromorphone HCl (Hydromorphone 1 Mg Inj) 1 mg IV Q15MIN PRN PRN Reason: Pain, Severe (7-10) Last Admin: 08/25/24 11:41 Dose: 1 mg Documented By: KEN Discontinued Medications Sodium Chloride (Normal Saline 0.9%) 1,000 mls @ 1,000 mls/hr IV BOLUS ONE Stop: 08/25/24 12:15 Last Infusion: 08/25/24 13:21 Dose: Infused Documented By: Admin: 08/25/24 11:41 Dose: 1,000 mls/hr Documented By: KEN Ondansetron HCl (Ondansetron 4 Mg/2 Ml Inj) 4 mg IV NOW ONE Stop: 08/25/24 11:17 Last Admin: 08/25/24 11:40 Dose: 4 mg Documented By: KEN Vital Signs Vital signs: Vital Signs - 8 hr 08/25/24 10:48 08/25/24 10:52 08/25/24 10:52 Temperature Pulse Rate 81 81 Respiratory Rate 12 12 Blood Pressure 167/73 H Pulse Oximetry 96 Oxygen Delivery Method Oxygen Flow Rate 08/25/24 11:00 08/25/24 11:00 08/25/24 11:17 Temperature 97.8 F Pulse Rate 80 80 Respiratory Rate 13 Blood Pressure 169/80 H 169/80 H Pulse Oximetry 97 99 Oxygen Delivery Method Nasal Cannula Oxygen Flow Rate 2 08/25/24 11:30 08/25/24 11:34 08/25/24 11:34 Temperature Pulse Rate 80 80 Respiratory Rate 13 12 Blood Pressure 182/89 H Pulse Oximetry 96 98 Oxygen Delivery Method Oxygen Flow Rate 08/25/24 12:00 08/25/24 12:00 08/25/24 12:15 Temperature Pulse Rate 80 Respiratory Rate Blood Pressure 172/79 H 166/79 H Pulse Oximetry 97 Oxygen Delivery Method Oxygen Flow Rate 08/25/24 12:15 08/25/24 12:30 08/25/24 12:30 Temperature Pulse Rate 81 81 Respiratory Rate 12 12 Blood Pressure 153/70 H Pulse Oximetry 94 99 Oxygen Delivery Method Oxygen Flow Rate 08/25/24 13:00 08/25/24 13:00 08/25/24 13:30 Temperature Pulse Rate 79 Respiratory Rate Blood Pressure 140/69 151/76 H Pulse Oximetry 98 Oxygen Delivery Method Oxygen Flow Rate 08/25/24 13:30 08/25/24 14:00 08/25/24 14:00 Temperature Pulse Rate 80 80 Respiratory Rate 14 Blood Pressure 149/72 H Pulse Oximetry 97 96 Oxygen Delivery Method Oxygen Flow Rate 08/25/24 14:30 08/25/24 14:30 Temperature Pulse Rate 79 Respiratory Rate 12 Blood Pressure 160/79 H Pulse Oximetry 96 Oxygen Delivery Method Oxygen Flow Rate MDM - Nausea/Vomiting/Diarrhea Lab Data 08/25/24 11:30 08/25/24 13:20 Labs: Lab Results 08/25/24 08/25/24 08/25/24 Range/Units 11:30 12:00 12:13 WBC 8.8 (4.5-11.0) X10^3/uL RBC 3.64 L (4.0-5.2) X10^6/uL Hgb 10.9 L (12.0-16.0) g/dL Hct 33.7 L (36-46) % MCV 92.4 (80-100) fL MCH 29.9 (26-34) PG MCHC 32.4 (30-36) % RDW 14.6 (11.6-14.8) % Plt Count 244 (150-400) X10^3/uL Neut % (Auto) 82.7 H (50-75) % Lymph % (Auto) 9.6 L (25-40) % [place] % (Auto) 5.5 (3-14) % Eos % (Auto) 1.2 L (2-4) % Baso % (Auto) 1.0 (0-2) % Neut # (Auto) 7300 H (4226-8339) /uL Lymph # (Auto) 800 L (2315-7840) /uL [place] # (Auto) 500 (0-900) /uL Eos # (Auto) 100 (0-450) /uL Baso # (Auto) 100 (0-100) /uL VBG pH 7.38 (7.33-7.43) VBG pCO2 44.0 L (45-50) mmHg VBG pO2 64 H (35-45) mmHg VBG HCO3 26 (24-28) mmol/L VBG Total CO2 26 (24-29) mmol/L VBG O2 Saturation 92 H (70-75) % VBG Base Excess 0.9 (0-4) mmol/L FiO2 % % Sodium 142 (137-145) mmol/L Potassium 4.9 (3.4-5.1) mmol/L Chloride 103 (98-107) mmol/L Carbon Dioxide 25 (22-32) mmol/L BUN 42 H (7-17) mg/dL Creatinine 3.80 H (0.52-1.04) mg/dL Estimated GFR 15 L (>60) mL/min BUN/Creatinine Ratio 11.1 (6-22) Glucose 146 H (70-99) mg/dL Calcium 9.0 (8.4-10.2) mg/dL Total Bilirubin 0.7 (0.2-1.3) mg/dL AST 28 (14-36) IU/L ALT 36 H (<35) IU/L Alkaline Phosphatase 200 H (38-126) U/L Total Protein 7.7 (6.3-8.2) g/dL Albumin 4.6 (3.5-5.0) g/dL Globulin 3.1 (1.7-4.1) g/dL Albumin/Globulin Ratio 1.5 (1.0-2.8) Lipase 24 (23-300) U/L Urine Color Yellow Urine Appearance Clear Urine pH 6.0 (4.5-8.0) Ur Specific [place] 1.020 (1.000-1.035) Urine Protein 3+ H (Negative) Urine Glucose (UA) Trace H (Negative) g/dL Urine Ketones Negative (NEGATIVE) Urine Occult Blood 2+ H (Negative) Urine Nitrate Negative (Negative) Urine Bilirubin Negative (NEGATIVE) Urine Urobilinogen 0.2 (0.2) E.U./dL Ur Leukocyte Esterase Negative (NEGATIVE) Urine RBC 1-5/hpf D (0-5/HPF) Urine WBC None seen (0-5/HPF) Ur Squamous Epith Cells 1-5 /hpf (0-5/HPF) Urine Bacteria None seen (None) Ur Culture Indicated? Cult not indicated Vol Urine Centrifuged 10ml (spun) Ketones 1.31 H (<0.27) mmol/L 08/25/24 08/25/24 Range/Units 13:20 13:31 WBC (4.5-11.0) X10^3/uL RBC (4.0-5.2) X10^6/uL Hgb (12.0-16.0) g/dL Hct (36-46) % MCV (80-100) fL MCH (26-34) PG MCHC (30-36) % RDW (11.6-14.8) % Plt Count (150-400) X10^3/uL Neut % (Auto) (50-75) % Lymph % (Auto) (25-40) % [place] % (Auto) (3-14) % Eos % (Auto) (2-4) % Baso % (Auto) (0-2) % Neut # (Auto) (2069-4333) /uL Lymph # (Auto) (2481-2911) /uL [place] # (Auto) (0-900) /uL Eos # (Auto) (0-450) /uL Baso # (Auto) (0-100) /uL VBG pH 7.37 (7.33-7.43) VBG pCO2 44.1 L (45-50) mmHg VBG pO2 67 H (35-45) mmHg VBG HCO3 25 (24-28) mmol/L VBG Total CO2 25 (24-29) mmol/L VBG O2 Saturation 92 H (70-75) % VBG Base Excess -0.2 L (0-4) mmol/L FiO2 % 24.0 % % Sodium 140 (137-145) mmol/L Potassium 4.4 (3.4-5.1) mmol/L Chloride 108 H (98-107) mmol/L Carbon Dioxide 24 (22-32) mmol/L BUN 42 H (7-17) mg/dL Creatinine 3.39 H (0.52-1.04) mg/dL Estimated GFR 18 L (>60) mL/min BUN/Creatinine Ratio 12.4 (6-22) Glucose 131 H (70-99) mg/dL Calcium 7.7 L (8.4-10.2) mg/dL Total Bilirubin 0.6 (0.2-1.3) mg/dL AST 36 (14-36) IU/L ALT 29 (<35) IU/L Alkaline Phosphatase 124 D (38-126) U/L Total Protein 6.2 L (6.3-8.2) g/dL Albumin 3.6 (3.5-5.0) g/dL Globulin 2.6 (1.7-4.1) g/dL Albumin/Globulin Ratio 1.4 (1.0-2.8) Lipase (23-300) U/L Urine Color Urine Appearance Urine pH (4.5-8.0) Ur Specific [place] (1.000-1.035) Urine Protein (Negative) Urine Glucose (UA) (Negative) g/dL Urine Ketones (NEGATIVE) Urine Occult Blood (Negative) Urine Nitrate (Negative) Urine Bilirubin (NEGATIVE) Urine Urobilinogen (0.2) E.U./dL Ur Leukocyte Esterase (NEGATIVE) Urine RBC (0-5/HPF) Urine WBC (0-5/HPF) Ur Squamous Epith Cells (0-5/HPF) Urine Bacteria (None) Ur Culture Indicated? Vol Urine Centrifuged Ketones (<0.27) mmol/L Point of Care Testing Glucose POC [address] scan - abdomen/pelvis: Radiologist's Impression: [address] [address] [address] Scan Report Signed Patient: Sarabjit Jimenes MR#: [id number] : 1990 Acct:[id number] Age/Sex: 34 / F Date of Service: 08/25/24 Loc: ED Accession Number: [id number] Procedure: CT abdomen pelvis wo con Ordering Provider: José Light MD PROCEDURE: CT ABDOMEN PELVIS WO CON INDICATIONS: Abdominal pain/vomiting TECHNIQUE: Axial sections were acquired from the lung bases to the pubic symphysis. Coronal and sagittal reformats were performed. For radiation dose reduction, the following was used: automated exposure control, adjustment of mA and/or kV according to patient size. COMPARISON: [facility], CT, CT ABDOMEN PELVIS WO CON, 02/25/2019, 23:35. FINDINGS: Image quality: Diagnostic. Lower Chest: Small right pleural effusion is seen. Trace left pleural effusion is also noted. Compressive atelectasis/small infiltrates are noted at bilateral lung bases. Heart size is normal, no pericardial effusion. URINARY: Right Kidney: No stones or hydronephrosis. Right Ureter: No hydroureter. Left Kidney: No stones or hydronephrosis. Left Ureter: No hydroureter. Bladder: Mild diffuse bladder wall thickening is seen. No stones. ABDOMEN: Liver: No contour-deforming solid mass. Gallbladder: Gallbladder is surgically absent. Biliary ducts: No biliary dilation. Pancreas: No ductal dilation. Spleen: Size is within normal limits. Adrenal Glands: No adrenal nodules. Stomach and Bowel: There is no bowel obstruction. Mild fecal stasis in the colon is seen. No abnormal bowel wall thickening or mesenteric fat stranding. No abscess collection. Peritoneum: No abnormal intraperitoneal fluid. No free air. Ventral Wall: No hernia. Abdominal Nodes: No enlarged retroperitoneal or mesenteric lymph nodes. Vessels: Aorta and inferior vena cava are normal in size. PELVIS: Pelvic Organs: Unremarkable. Pelvic Nodes: Unremarkable. Miscellaneous: No inguinal hernias are seen. Bones: No aggressive appearing bony lesions. IMPRESSION: 1. No bowel obstruction or abnormal bowel wall thickening. No free fluid or free air. 2. No obstructing renal stones or hydronephrosis. Nonspecific mild bilateral perinephric fat stranding. Pyelonephritis cannot be excluded. 3. Diffuse bladder wall thickening concerning for cystitis. No calcified bladder stones. 4. Other incidental findings as above. Dictated by: Julio Kay M.D. on 08/25/2024 at 12:34 Approved by: Julio Kay M.D. on 08/25/2024 at 12:40 [facility] Narrative Medical decision making narrative: Patient brought in by ambulance from home. Started with vomiting last night and through the morning. Also developed abdominal pain generalized abdominal pain after the vomiting. No fever chills. Patient does have long history of insulin-dependent diabetes, has a insulin pump. Her blood sugar she states usually around 200s. She states her hemoglobin A1c last checked was 5.8. She recently seen here last month/admitted and then had to be transferred to [facility]. She did not get dialysis. She is meeting with nephrology services to determine whether she needs dialysis. She is amenable to dialysis. Verbalized she wishes to be DNR DNI with full treatment. She has no Polst form. She would like to have this form completed with her mother. She is legally blind. She has been doing well at home since her discharge from [facility] last month. Ejection fraction 50% on echocardiogram July 18, 2024. Please see transfer note from Dr. Vega, hospitalist from July this year. After history and exam, patient states she has had Dilaudid before for pain., Zofran normal saline CT abdomen pelvis CBC CMP VBG lipase EKG, urinalysis [facility] Medical records reviewed: July 21 discharge summary from this hospital Differential considered: Includes but not limited to DKA bowel obstruction UTI gastroparesis Lab Test results independently reviewed as above. Pertinent findings: WBC 8.8 hemoglobin 10.9 sodium 140 potassium 4.4 bicarb 24 BUN 42 creatinine 3.39 GFR 18 glucose 131 calcium 7.7 urinalysis trace glucose negative nitrate negative leukocyte esterase, repeat VBG 7.37 pCO2 44 PO2 67 bicarb 25 O2 saturation 92% Independently reviewed EKG normal sinus rhythm normal EKG rate 82 Imaging studies independently reviewed: CT abdomen pelvis no acute finding Consultations: 2:40 p.m.. I spoke with Dr. Weinberg, hospitalist here, we reviewed laboratory studies together and he was able to retrieve laboratory studies from patient's discharge from [facility] last month after she was transferred from here. She is at baseline at this time. She is motivated and desires discharge home. Appropriate for discharge home. Re-evaluations: 2:20 p.m.. Patient and mom are requested to be discharged home. She states she is feeling much better. She does not want to be admitted. No nausea no abdominal pain. I will review laboratory results with hospitalist she, she agrees. She has appointment tomorrow with nephrology consult for dialysis. Then she will see a chemical packager. She also has a appointment to review the pains in her arms for fistula.. They do desire to complete a POLST form, DNR DNI with full treatment Discussion: Appropriate for discharge home. Exam is reassuring. Return precautions reviewed with patient and mom. I did review with hospitalist and patient is now at baseline with laboratory studies when she was discharged from [facility] last month. After she was transferred there from here. Clinically not cystitis or pyelonephritis. No urinary complaints. Diagnosis: Abdominal pain/nausea and vomiting Discharge Plan Departure Patient Disposition: Home Clinical Impression: Acute vomiting Abdominal pain Qualifiers: Abdominal location: generalized Qualified Code(s): R10.84 - Generalized abdominal pain Instructions: DI for Abdominal Pain-Adult, DI for Vomiting -- Adult Activity Restrictions/Additional Instructions: Your exam is reassuring. Your laboratory studies are essentially at baseline now. He CT scan imaging is reassuring. I am glad you are feeling better. Prescription for nausea medication has been sent to your pharmacy to [facility] and continue. Continue home medications. Please see your upcoming providers and consults this week as scheduled. Return if worse if any questions or concerns. Prescriptions: New ondansetron 4 mg tablet,disintegrating 4 mg PO Q6H PRN (Reason: nausea and vomiting) Qty: 20 0RF No Action glucose 4 gram tablet,chewable 4 gram PO Q15M PRN (Reason: hypoglycemia) Qty: 30 0RF Rx Instructions: until response Glucagon Emergency Kit (human) 1 mg recon soln 1 mg subcut DIRECTED metoprolol succinate 50 mg tablet extended release 24 hr 50 mg PO BEDTIME rosuvastatin 20 mg tablet 20 mg PO BEDTIME diphenhydramine HCl 50 mg Capsule 50 mg PO BEDTIME PRN (Reason: Sleep) Rx Instructions: for itching and sleep insulin degludec [Tresiba FlexTouch U-200] 200 unit/mL (3 mL) insulin pen See Rx Instructions .ROUTE .COMPLEX Rx Instructions: 20u in the am 6units at bedtime insulin aspart U-100 [Novolog U-100 Insulin aspart] 100 unit/mL solution 100 unit DAILY (DME) Dexcom G7 Sensor Device MISCELLANEOUS Q10D Referrals: Maria Ines Limon DO [Primary Care Provider] - Stand Alone Forms: Patient Portal/API/Survey
[2024-08-25 11:53] LABS: Alanine Aminotransferase 36 IU/L (<35); Albumin 4.6 g/dL (3.5-5.0); Albumin Globulin Ratio 1.5 (1.0-2.8); Alkaline Phosphatase 200 U/L (38-126); Aspartate Aminotransferase 28 IU/L (14-36); BUN Creatinine Ratio 11.1 (6-22); Bilirubin Total 0.7 mg/dL (0.2-1.3); Blood Urea Nitrogen 42 mg/dL (7-17); Carbon Dioxide 25 mmol/L (22-32); Chloride 103 mmol/L (98-107); Estimated Glomerular Filt Rate 15 mL/min (>60); Globulin 3.1 g/dL (1.7-4.1); Glucose 146 mg/dL (70-99); HEMOLYSIS 25 (0-50); Lipase 24 U/L (23-300); Potassium 4.9 mmol/L (3.4-5.1); Sodium 142 mmol/L (137-145); Total Protein 7.7 g/dL (6.3-8.2)
[2024-08-25 12:06] LABS: Ketones (Beta-Hydroxybutyrate) 1.31 mmol/L (<0.27)
--- NOTE | 2024-08-25 12:09 | PC.NURSE ---
Upper abd pain. Pt reports n/v started last night. Pt denies being in contact w/ anyone sick. Pt reports pain feels like a cramp. Pt reports blood sugars have been under control.
[2024-08-25 12:20] LABS: Appearance Urine UA CLEAR; Bilirubin Urine UA NEGATIVE (NEGATIVE); Color Urine UA YELLOW; Glucose Urine UA TRACE g/dL (Negative); Ketones Urine UA NEGATIVE (NEGATIVE); Leukocyte Esterase Urine UA NEGATIVE (NEGATIVE); Nitrite Urine UA NEGATIVE (Negative); Occult Blood Urine UA 2+ (Negative); Protein Urine UA 3+ (Negative); Urobilinogen Urine UA 0.2 E.U./dL (0.2)
[2024-08-25 12:20] LABS: Base Excess VBG 0.9 mmol/L (0-4); HCO3 VBG 26 mmol/L (24-28); Oxygen Saturation VBG 92 % (70-75); PO2 VBG 64 mmHg (35-45); Total CO2 VBG 26 mmol/L (24-29); pH VBG 7.38 (7.33-7.43)
[2024-08-25 12:23] LABS: Urine Volume 10mL (spun)
[2024-08-25 12:27] LABS: Bacteria Urine None Seen; Culture Indicated Urine Cult Not Indicated; RBC Urine 1-5/HPF (0-5/HPF); Squamous Epithelial Cell Urine 1-5 /HPF (0-5/HPF); WBC Urine None Seen (0-5/HPF)
[2024-08-25 13:34] LABS: Base Excess VBG -0.2 mmol/L (0-4); HCO3 VBG 25 mmol/L (24-28); Oxygen Saturation VBG 92 % (70-75); PCO2 VBG 44.1 mmHg (45-50); PO2 VBG 67 mmHg (35-45); Total CO2 VBG 25 mmol/L (24-29); pH VBG 7.37 (7.33-7.43)
[2024-08-25 13:46] LABS: Alanine Aminotransferase 29 IU/L (<35); Albumin 3.6 g/dL (3.5-5.0); Albumin Globulin Ratio 1.4 (1.0-2.8); Alkaline Phosphatase 124 U/L (38-126); BUN Creatinine Ratio 12.4 (6-22); Bilirubin Total 0.6 mg/dL (0.2-1.3); Blood Urea Nitrogen 42 mg/dL (7-17); Calcium 7.7 mg/dL (8.4-10.2); Carbon Dioxide 24 mmol/L (22-32); Chloride 108 mmol/L (98-107); Estimated Glomerular Filt Rate 18 mL/min (>60); Globulin 2.6 g/dL (1.7-4.1); Glucose 131 mg/dL (70-99); Sodium 140 mmol/L (137-145); Total Protein 6.2 g/dL (6.3-8.2)
[2024-08-25 13:47] LABS: Aspartate Aminotransferase 36 IU/L (14-36); HEMOLYSIS 88 (0-50); Potassium 4.4 mmol/L (3.4-5.1)
== END 2024-08-25 15:12 | disposition home or self-care (01) ==
PROVIDERS: Emergency Provider Emergency Medicine; PCP Student in an Organized Health Care Education/Training Program
DX: R11.2 Nausea with vomiting, unspecified (principal); R10.84 Generalized abdominal pain; E10.9 Type 1 diabetes mellitus without complications; Z96.41 Presence of insulin pump (external) (internal)
CPT/HCPCS: 36415; 74176; 80053; 81001; 82009; 82805; 82962; 83690; 85025; 93005; J1171; J2405

== ENCOUNTER 2024-08-25 20:55 | Emergency (ER) | payer OTHER, SELFPAY ==
[2024-07-18 20:44] VITALS: BMI 27.5
[2024-08-25] VITALS (8 sets, daily range): BP systolic 145–156; BP diastolic 69–86; PULSE 78–86; RESP 9–18; TEMP 36.6; O2SAT 88–100; BMI 23.6
--- NOTE | 2024-08-25 21:38 | ED.BACK ---
HPI - Back Pain/Injury General Chief Complaint: Back Pain/Injury Stated Complaint: Back pain Time Seen by Provider: 08/25/24 21:37 Source: patient and EMS History of Present Illness HPI Narrative: 34-year-old female with past medical history of insulin dependent diabetes presenting from home for evaluation of nausea and vomiting abdominal pain and back pain, states that she was seen here previously discharged home and is now complaining of low back pain which she did not have when she was seen here previously. According to the patient's mother patient was sleeping and she states that she placed a pulse ox on her finger because it seemed like she was not taking very many deep breaths states that it was 60% so called medics, it is now 99% on room air. She states that she feels fine but is now complaining of low back pain she denies any trauma or falls she is wheelchair at baseline, she is blind at baseline. She states that she just feels some low back pain but denies any saddle paresthesia bowel or urinary incontinence or retention. Related Data Home Medications Medication Instructions Recorded Confirmed glucagon (human recombinant) 1 mg 1 mg SUBCUT DIRECTED 02/16/19 07/19/24 solution for injection (Glucagon Emergency Kit) diphenhydramine HCl 50 mg capsule 50 mg PO BEDTIME PRN Sleep 09/29/20 07/18/24 insulin degludec 200 unit/mL (3 See Rx Instructions .Route .COMPLEX 11/13/21 07/02/22 mL) subcutaneous pen (Tresiba FlexTouch U-200 insulin) metoprolol succinate 50 mg 50 mg PO BEDTIME 10/20/23 07/18/24 tablet,extended release 24 hr rosuvastatin 20 mg tablet 20 mg PO BEDTIME 10/20/23 07/18/24 blood-glucose sensor (Dexcom G7 07/19/24 07/19/24 Sensor device) insulin aspart U-100 100 unit/mL 100 unit DAILY 07/19/24 07/19/24 subcutaneous solution (Novolog U-100 Insulin aspart) Previous Rx's Medication Instructions Recorded glucose 4 gram chewable tablet 4 gram PO Q15M PRN hypoglycemia 12/12/18 #30 tabs ondansetron 4 mg disintegrating 4 mg PO Q6H PRN nausea and 08/25/24 tablet vomiting #20 tabs Allergies Allergy/AdvReac Type Severity Reaction Status Date / Time abdalla [ABDALLA] Allergy Intermediate Hives, Verified 10/26/23 10:46 pruritus iodine [IODINE] Allergy Intermediate rash, itchy Verified 10/26/23 10:46 morphine Allergy Intermediate Difficulty Verified 10/26/23 10:46 Breathing shellfish derived Allergy Intermediate rash Verified 10/26/23 10:46 [SHELLFISH DERIVED] adhesive [ADHESIVE] Allergy Unknown tape Verified 10/26/23 10:46 latex [LATEX] Allergy Unknown Hives Verified 10/26/23 10:46 amoxicillin [From Augmentin] AdvReac Severe Abnormal Verified 10/27/23 13:15 LFTs, N/V clavulanic acid AdvReac Severe Abnormal Verified 10/27/23 13:15 [From Augmentin] LFTs, N/V fentanyl AdvReac Severe other Verified 07/20/24 17:30 Review of Systems Review of Systems Narrative: General: Denies fever, chills, weight loss HEENT: Denies headache, eye drainage, eye irritation, head trauma, sore throat, voice change Cardiovascular: Denies any chest pain, palpitations, tachycardia Respiratory: Positive shortness of breath, denies cough, wheeze, stridor GI/: Denies any abdominal pain, nausea, vomiting, diarrhea, bright red blood per rectum, melanotic stools, urinary frequency, urinary retention, dysuria, hematuria MSK: Denies any joint pain, muscle pains, swelling Skin: Denies any rashes, lesions, discoloration Neuro: Denies any headache, lightheadedness, dizziness, fainting, weakness Psych: Denies SI/HI Patient History Medical History Abnormal liver function tests Noncompliance w/medication treatment due to intermit use of medication Irregular menstrual cycle Migraine headache History of pyelonephritis DKA (diabetic ketoacidoses) Nephrolithiasis Type 1 diabetes mellitus Surgical History Status post cholecystectomy Hx of cataract surgery Hx of local excision of skin lesion [place] teeth extracted Status post laser lithotripsy of ureteral calculus History of ureter stent Family History Father In good health Mother Cardiac disease Social History details: Engaged household members: family alcohol intake: never alcohol intake frequency: holidays/special occasions only Exam Narrative Exam Narrative: General: Cooperative, not in acute distress HEENT: Normocephalic, atraumatic, patient blind at baseline Neck: Active full range of motion, atraumatic Chest: Normal to inspection, negative crepitus, no overlying erythema ecchymosis Respiratory: Normal respiratory effort, not in acute respiratory distress, clear to auscultation bilaterally negative cough, wheeze, tachypnea, rhonchi, rales Cardiology: Regular rate rhythm negative gallop, murmur, rubs GI/: No tenderness to palpation, soft, non rigid, normal to inspection, exam deferred MSK: Full active range of motion in all 4 extremities, atraumatic, no tenderness to palpation of any bony prominences Skin: No rashes or lesions noted Neuro: Alert awake oriented x3, able to answer all questions appropriately follows commands appropriately Psych: Cooperative, negative suicidal or homicidal ideations Initial Vital Signs Initial Vital Signs: Vital Signs Pulse Rate 78 08/25/24 21:04 Pulse Oximetry 98 08/25/24 21:04 Course Orders Ordered: ED Orders 08/25/24 21:59 XR chest 1V Stat EKG-12 Lead Stat 08/25/24 22:33 Complete Blood Count AUTO DIFF Stat Comprehensive Metabolic Panel Stat Lipase Stat MAG [Magnesium] Stat NT-proBNP (BNP-Adult 18+) Stat Troponin & CK Cardiac Panel Stat Vital Signs Vital signs: Vital Signs - 8 hr 08/25/24 21:04 08/25/24 21:05 08/25/24 21:30 Temperature 97.9 F Pulse Rate 78 78 Respiratory Rate 16 Blood Pressure 151/80 H 146/81 H Pulse Oximetry 98 90 L Oxygen Delivery Method Room Air 08/25/24 21:30 08/25/24 22:00 08/25/24 22:00 Temperature Pulse Rate 79 79 Respiratory Rate 18 10 L Blood Pressure 156/86 H Pulse Oximetry 97 98 Oxygen Delivery Method Room Air 08/25/24 22:30 08/25/24 23:00 08/25/24 23:30 Temperature Pulse Rate 81 80 81 Respiratory Rate 14 9 L 15 Blood Pressure Pulse Oximetry 99 99 100 Oxygen Delivery Method 08/25/24 23:39 08/25/24 23:39 Temperature Pulse Rate 86 Respiratory Rate 15 Blood Pressure 145/69 H Pulse Oximetry 88 L Oxygen Delivery Method MDM - Back Pain/Injury Differential Diagnosis Differential diagnosis: Likely lumbar radiculopathy and other (ACS, pneumonia,) Lab Data 08/25/24 22:33 08/25/24 22:33 Labs: Lab Results 08/25/24 Range/Units 22:33 WBC 10.7 (4.5-11.0) X10^3/uL RBC 3.58 L (4.0-5.2) X10^6/uL Hgb 10.7 L (12.0-16.0) g/dL Hct 33.6 L (36-46) % MCV 93.7 (80-100) fL MCH 29.8 (26-34) PG MCHC 31.8 (30-36) % RDW 15.0 H (11.6-14.8) % Plt Count 245 (150-400) X10^3/uL Neut % (Auto) 87.1 H (50-75) % Lymph % (Auto) 6.6 L (25-40) % Brooks % (Auto) 5.2 (3-14) % Eos % (Auto) 0.5 L (2-4) % Baso % (Auto) 0.6 (0-2) % Neut # (Auto) 9300 H (2356-3665) /uL Lymph # (Auto) 700 L (5017-3061) /uL Brooks # (Auto) 600 (0-900) /uL Eos # (Auto) 100 (0-450) /uL Baso # (Auto) 100 (0-100) /uL Sodium 144 (137-145) mmol/L Potassium 4.8 (3.4-5.1) mmol/L Chloride 107 (98-107) mmol/L Carbon Dioxide 27 (22-32) mmol/L BUN 41 H (7-17) mg/dL Creatinine 3.98 H (0.52-1.04) mg/dL Estimated GFR 15 L (>60) mL/min BUN/Creatinine Ratio 10.3 (6-22) Glucose 156 H (70-99) mg/dL Calcium 8.1 L (8.4-10.2) mg/dL Magnesium 2.0 (1.6-2.3) mg/dL Total Bilirubin 0.6 (0.2-1.3) mg/dL AST 97 H (14-36) IU/L ALT 54 H (<35) IU/L Alkaline Phosphatase 201 H D (38-126) U/L Total Creatine Kinase 241 H (30-135) U/L Troponin I 0.013 (0.01-0.034) ng/mL NT-Pro-B Natriuret Pep 70660 H (<125) pg/mL Total Protein 7.5 (6.3-8.2) g/dL Albumin 4.5 (3.5-5.0) g/dL Globulin 3.0 (1.7-4.1) g/dL Albumin/Globulin Ratio 1.5 (1.0-2.8) Lipase 19 L (23-300) U/L Imaging Data Chest x-ray: Radiologist's Impression: [address] [address] XRay Report Signed Patient: Sarabjit Jimenes MR#: [id number] : 1990 Acct:[id number] Age/Sex: 34 / F Date of Service: 08/25/24 Loc: ED Accession Number: [id number] Procedure: XR chest 1V Ordering Provider: Julio Cesar Le D.O. PROCEDURE: XR CHEST 1V INDICATIONS: dyspnea TECHNIQUE: One view of the chest was acquired. COMPARISON: [facility], CR, XR CHEST 1V, 07/19/2024, 9:37. [facility], CR, XR CHEST 1V, 07/18/2024, 11:34. [facility], CR, XR CHEST 1V, 10/20/2023, 8:40. [facility], CR, XR CHEST 1V, 05/12/2023, 13:54. FINDINGS: Surgical changes and devices: None. Lungs and pleura: Right basilar subsegmental atelectasis. No pleural effusions or pneumothorax. Mediastinum: Mediastinal contours appear normal. Heart size is normal. Bones and chest wall: No suspicious bony lesions. Overlying soft tissues appear unremarkable. IMPRESSION: Right basilar subsegmental atelectasis. Otherwise, no acute cardiothoracic process. ECG Data Interpretation: EKG interpreted ED physician sinus 83 beats per minute normal axis nonspecific ST changes no STEMI MDM Narrative Medical decision making narrative: 34-year-old female with a history of CKD in the process of possible dialysis, diabetes with insulin pump presenting from home via EMS for evaluation of multiple complaints. Patient was seen here previously for nausea vomiting abdominal pain, had normal workup, creatinine was elevated but improved from previous/near baseline she was discharged home after improvement of her abdominal pain, urinalysis not consistent with a urinary tract infection at that time, the remainder of her lab work and imaging was unremarkable at that time she was not complaining of any chest pain shortness of breath or back pain. She states that when she got home she was sleeping mother states that she noticed that the patient was not breathing very often put a pulse ox and was noted in the 70s, she woke the patient up mother states that patient then appeared somewhat confused but is now back to baseline. Patient not requiring any supplemental oxygen currently. Patient did receive Dilaudid before discharge here. She is now only complaining of low back pain without any red flags for cauda equina, patient had repeat lab work EKG and chest x-ray performed here chest x-ray without any acute cardiopulmonary abnormality. EKG nonischemic in nature, patient's lab work at baseline still, symptoms more likely secondary to possible over-sedation from Dilaudid, however patient is still requesting medication for low back will give dose of Valium here but instructed to follow up with primary care and Nephrology in outpatient setting patient still not requiring any oxygen at this time patient will be discharged home with outpatient follow up Discharge Plan Departure Patient Disposition: Home Clinical Impression: CKD (chronic kidney disease), Dyspnea Activity Restrictions/Additional Instructions: Please follow up with the primary care doctor and your informatics spec for your scheduled appointments Please read the discharge instructions sheet carefully and bring all papers to all doctor follow-up visits, as it may contain information that your doctor may want to see. Disease processes change and evolve, if your symptoms worsen or if you develop any new symptoms that are concerning to you please return for evaluation. Your evaluation today does not show any evidence of any life-threatening/serious illnesses requiring admission to the hospital or surgery. Please follow-up with your doctor for re-evaluation in approximately 1 day. Seek immediate medical attention for any worrisome symptoms. *If you do not have a primary care provider please contact the [facility] Resource line at [phone]. They will ask some questions about your medical history and help get you set up with a doctor in the community. Prescriptions: No Action glucose 4 gram tablet,chewable 4 gram PO Q15M PRN (Reason: hypoglycemia) Qty: 30 0RF Rx Instructions: until response Glucagon Emergency Kit (human) 1 mg recon soln 1 mg subcut DIRECTED metoprolol succinate 50 mg tablet extended release 24 hr 50 mg PO BEDTIME rosuvastatin 20 mg tablet 20 mg PO BEDTIME ondansetron 4 mg tablet,disintegrating 4 mg PO Q6H PRN (Reason: nausea and vomiting) Qty: 20 0RF diphenhydramine HCl 50 mg Capsule 50 mg PO BEDTIME PRN (Reason: Sleep) Rx Instructions: for itching and sleep insulin degludec [Tresiba FlexTouch U-200] 200 unit/mL (3 mL) insulin pen See Rx Instructions .ROUTE .COMPLEX Rx Instructions: 20u in the am 6units at bedtime insulin aspart U-100 [Novolog U-100 Insulin aspart] 100 unit/mL solution 100 unit DAILY (DME) Dexcom G7 Sensor Device MISCELLANEOUS Q10D Referrals: Maria Ines Limon DO [Primary Care Provider] - Stand Alone Forms: Patient Portal/API/Survey
--- NOTE | 2024-08-25 21:50 | PC.NURSE ---
Pt now resting with eyes closed, appears comfortable. Mother at bedside reports that after they got home from ER today, pt was very tired. Mom noted episodes of turning blue, confusion, and difficulty hearing due to ringing in ears.
--- NOTE | 2024-08-25 21:59 | DI.RAD.S_ITS ---
PROCEDURE: XR CHEST 1V INDICATIONS: dyspnea TECHNIQUE: One view of the chest was acquired. COMPARISON: [facility], CR, XR CHEST 1V, 07/19/2024, 9:37. [facility], CR, XR CHEST 1V, 07/18/2024, 11:34. [facility], CR, XR CHEST 1V, 10/20/2023, 8:40. [facility], CR, XR CHEST 1V, 05/12/2023, 13:54. FINDINGS: Surgical changes and devices: None. Lungs and pleura: Right basilar subsegmental atelectasis. No pleural effusions or pneumothorax. Mediastinum: Mediastinal contours appear normal. Heart size is normal. Bones and chest wall: No suspicious bony lesions. Overlying soft tissues appear unremarkable. IMPRESSION: Right basilar subsegmental atelectasis. Otherwise, no acute cardiothoracic process. Dictated by: aPwel Quintero M.D. on 08/25/2024 at 22:41 Approved by: Pawel Quintero M.D. on 08/25/2024 at 22:42
--- NOTE | 2024-08-25 22:41 | EKG_ITS ---
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
[2024-08-25 22:49] LABS: Add Manual Diff / Slide Review NO; Basophils Absolute Auto 100 /uL (0-100); Basophils Percent Auto 0.6 % (0-2); Eosinophils Absolute Auto 100 /uL (0-450); Eosinophils Percent Auto 0.5 % (2-4); Hematocrit 33.6 % (36-46); Hemoglobin 10.7 g/dL (12.0-16.0); Lymphocytes Absolute Auto 700 /uL (1100-4500); Lymphocytes Percent Auto 6.6 % (25-40); Mean Corpuscular HGB Conc 31.8 % (30-36); Mean Corpuscular Hemoglobin 29.8 PG (26-34); Mean Corpuscular Volume 93.7 fL (80-100); Monocytes Absolute Auto 600 /uL (0-900); Monocytes Percent Auto 5.2 % (3-14); Neutrophils Absolute Auto 9300 /uL (1500-7000); Neutrophils Percent Auto 87.1 % (50-75); Platelet Count 245 X10^3/uL (150-400); Red Blood Cell Count 3.58 X10^6/uL (4.0-5.2); White Blood Cell Count 10.7 X10^3/uL (4.5-11.0)
[2024-08-25 23:08] LABS: Alanine Aminotransferase 54 IU/L (<35); Albumin 4.5 g/dL (3.5-5.0); Albumin Globulin Ratio 1.5 (1.0-2.8); Alkaline Phosphatase 201 U/L (38-126); Aspartate Aminotransferase 97 IU/L (14-36); BUN Creatinine Ratio 10.3 (6-22); Bilirubin Total 0.6 mg/dL (0.2-1.3); Blood Urea Nitrogen 41 mg/dL (7-17); Calcium 8.1 mg/dL (8.4-10.2); Carbon Dioxide 27 mmol/L (22-32); Chloride 107 mmol/L (98-107); Creatine Kinase 241 U/L (30-135); Estimated Glomerular Filt Rate 15 mL/min (>60); Glucose 156 mg/dL (70-99); HEMOLYSIS < 15 (0-50); Lipase 19 U/L (23-300); Potassium 4.8 mmol/L (3.4-5.1); Sodium 144 mmol/L (137-145); Total Protein 7.5 g/dL (6.3-8.2)
[2024-08-25 23:17] LABS: NT-proBNP (BNP-Adult 18+) 14100 pg/mL (<125)
[2024-08-25 23:20] LABS: Troponin I 0.013 ng/mL (0.01-0.034)
[2024-08-26] VITALS: PULSE 85; RESP 10; O2SAT 99
[2024-08-26 00:30] VITALS: PULSE 85; RESP 11; O2SAT 99
[2024-08-26 00:33] VITALS: BP 155/79; PULSE 85; RESP 12; O2SAT 100
[2024-08-26] MEDS: ONDANSETRON 4 MG/2 ML INJ IV (00:44)
--- NOTE | 2024-08-26 01:25 | PC.NURSE ---
Pt observed on room air, for majority of hospital stay, SpO2 maintained >92%. Able to transfer to [facility] with stand by assist. Did not c/o back pain.
[2024-08-26 02:02] VITALS: BP 155/79; PULSE 85; RESP 19; O2SAT 96
--- NOTE | 2024-09-10 05:05 | ED_ITS ---
HPI - Back Pain/Injury General Chief Complaint: Back Pain/Injury Stated Complaint: Back pain Time Seen by Provider: 08/25/24 21:37 Source: patient, EMS, RN notes reviewed and old records reviewed Mode of arrival: EMS Limitations: no limitations History of Present Illness HPI Narrative: 34-year-old female history of insulin-dependent diabetes, multiple complications including diabetic retinopathy blindness, CKD stage 4 follows with [facility], CHF, hypertension presents complaint of cramping and discomfort in bilateral legs and lower back discomfort. No reported fevers but patient states she feels cold. No cough cold or congestion. No chest pain or pressure, no shortness of breath. Patient feels nauseated but denies any vomiting. No diarrhea or constipation. No dysuria urgency or frequency. Patient states could you can see she was unsure if her legs has been swollen lately but does not appreciate the sensation of swelling. Patient was recently hospitalized for over a through September 06 for hyperkalemia. Patient states no new changes to her medications after discharge. Related Data Home Medications Medication Instructions Recorded Confirmed diphenhydramine HCl 50 mg capsule 50 mg PO BEDTIME PRN Sleep 09/29/20 09/05/24 insulin degludec 200 unit/mL (3 See Rx Instructions .Route .COMPLEX 11/13/21 07/02/22 mL) subcutaneous pen (Tresiba FlexTouch U-200 insulin) metoprolol succinate 50 mg 75 mg PO BEDTIME 10/20/23 09/05/24 tablet,extended release 24 hr rosuvastatin 20 mg tablet 40 mg PO BEDTIME 10/20/23 09/05/24 blood-glucose sensor (Dexcom G7 07/19/24 09/05/24 Sensor device) amlodipine 5 mg tablet 5 mg PO ONCE PM 09/04/24 09/04/24 Previous Rx's Medication Instructions Recorded glucose 4 gram chewable tablet 4 gram PO Q15M PRN hypoglycemia 12/12/18 #30 tabs ondansetron 4 mg disintegrating 4 mg PO Q6H PRN nausea and 08/25/24 tablet vomiting #20 tabs insulin degludec 100 unit/mL (3 15 unit (0.15 mL) SUBCUT BID #15 mL 09/06/24 mL) subcutaneous pen (Tresiba FlexTouch U-100 insulin) insulin lispro 100 unit/mL 14 unit (0.14 mL) SUBCUT ACHS #6 mL 09/06/24 subcutaneous solution (Admelog U-100 Insulin lispro) Allergies Allergy/AdvReac Type Severity Reaction Status Date / Time arredondo [ARREDONDO] Allergy Intermediate Hives, Verified 09/04/24 18:11 pruritus iodine [IODINE] Allergy Intermediate rash, itchy Verified 09/04/24 18:11 morphine Allergy Intermediate Difficulty Verified 09/04/24 18:11 Breathing shellfish derived Allergy Intermediate rash Verified 09/04/24 18:11 [SHELLFISH DERIVED] adhesive [ADHESIVE] Allergy Unknown tape Verified 09/04/24 18:11 latex [LATEX] Allergy Unknown Hives Verified 09/04/24 18:11 amoxicillin [From Augmentin] AdvReac Severe Abnormal Verified 09/04/24 18:11 LFTs, N/V clavulanic acid AdvReac Severe Abnormal Verified 09/04/24 18:11 [From Augmentin] LFTs, N/V fentanyl AdvReac Severe other Verified 09/04/24 18:11 Review of Systems Review of Systems ROS Unobtainable: All systems reviewed & are unremarkable except as noted in HPI and below Patient History Medical History Abnormal liver function tests Noncompliance w/medication treatment due to intermit use of medication Irregular menstrual cycle Migraine headache History of pyelonephritis DKA (diabetic ketoacidoses) Nephrolithiasis Type 1 diabetes mellitus Surgical History Status post cholecystectomy Hx of cataract surgery Hx of local excision of skin lesion [place] teeth extracted Status post laser lithotripsy of ureteral calculus History of ureter stent Family History Father In good health Mother Cardiac disease Social History details: Engaged household members: family alcohol intake: never alcohol intake frequency: holidays/special occasions only Exam Narrative Exam Narrative: GENERAL: Alert and oriented x three, female in moderate distress HEENT: Head normocephalic, atraumatic, EOMI, pupils reactive, face symmetric, moist mucous membranes NECK: Supple, full range of motion CARDIOVASCULAR: Regular rate and rhythm without murmurs, rubs or gallops. Bilateral lower extremity edema. RESPIRATORY: Breath sounds equal bilaterally, no wheezes rales or rhonchi. No tachypnea accessory muscle use. ABDOMEN: Soft, nontender. Nondistended. Normoactive bowel sounds all 4 quadrants. No guarding or rebound, rigidity, no mass : No CVA tenderness EXTREMITIES: Normal range of motion. Cap refill less than 2 seconds bilateral lower extremities. 2+ pulses bilaterally. Neurovascularly intact NEUROLOGICAL: Cranial nerves II through XII grossly intact. Moving all extremities SKIN: Warm, dry, no petechiae, no rashes or lesions. Initial Vital Signs Initial Vital Signs: Vital Signs Pulse Rate 78 08/25/24 21:04 Pulse Oximetry 98 08/25/24 21:04 Course Orders Ordered: Discontinued Medications Diazepam (Diazepam 2 Mg Tablet) 2 mg PO NOW ONE Stop: 08/26/24 00:18 Last Admin: 08/26/24 00:35 Dose: Not Given Documented By: ODESSA Ondansetron HCl (Ondansetron 4 Mg/2 Ml Inj) 4 mg IV NOW ONE Stop: 08/26/24 00:41 Last Admin: 08/26/24 00:44 Dose: 4 mg Documented By: KEN MDM - Back Pain/Injury Lab Data 08/25/24 22:33 08/25/24 22:33 Labs: Lab Results 08/25/24 Range/Units 22:33 WBC 10.7 (4.5-11.0) X10^3/uL RBC 3.58 L (4.0-5.2) X10^6/uL Hgb 10.7 L (12.0-16.0) g/dL Hct 33.6 L (36-46) % MCV 93.7 (80-100) fL MCH 29.8 (26-34) PG MCHC 31.8 (30-36) % RDW 15.0 H (11.6-14.8) % Plt Count 245 (150-400) X10^3/uL Neut % (Auto) 87.1 H (50-75) % Lymph % (Auto) 6.6 L (25-40) % [place] % (Auto) 5.2 (3-14) % Eos % (Auto) 0.5 L (2-4) % Baso % (Auto) 0.6 (0-2) % Neut # (Auto) 9300 H (2915-8747) /uL Lymph # (Auto) 700 L (4226-6271) /uL [place] # (Auto) 600 (0-900) /uL Eos # (Auto) 100 (0-450) /uL Baso # (Auto) 100 (0-100) /uL Sodium 144 (137-145) mmol/L Potassium 4.8 (3.4-5.1) mmol/L Chloride 107 (98-107) mmol/L Carbon Dioxide 27 (22-32) mmol/L BUN 41 H (7-17) mg/dL Creatinine 3.98 H (0.52-1.04) mg/dL Estimated GFR 15 L (>60) mL/min BUN/Creatinine Ratio 10.3 (6-22) Glucose 156 H (70-99) mg/dL Calcium 8.1 L (8.4-10.2) mg/dL Magnesium 2.0 (1.6-2.3) mg/dL Total Bilirubin 0.6 (0.2-1.3) mg/dL AST 97 H (14-36) IU/L ALT 54 H (<35) IU/L Alkaline Phosphatase 201 H D (38-126) U/L Total Creatine Kinase 241 H (30-135) U/L Troponin I 0.013 (0.01-0.034) ng/mL NT-Pro-B Natriuret Pep 65360 H (<125) pg/mL Total Protein 7.5 (6.3-8.2) g/dL Albumin 4.5 (3.5-5.0) g/dL Globulin 3.0 (1.7-4.1) g/dL Albumin/Globulin Ratio 1.5 (1.0-2.8) Lipase 19 L (23-300) U/L Discharge Plan Departure Patient Disposition: Home Clinical Impression: CKD (chronic kidney disease), Dyspnea Activity Restrictions/Additional Instructions: Please follow up with the primary care doctor and 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 Disease processes change and evolve, if your symptoms worsen or if you develop any new symptoms that are concerning to you please return for evaluation. Your evaluation today does not show any evidence of any life- threatening/serious illnesses requiring admission to the hospital or surgery. Please follow-up with your doctor for re-evaluation in approximately 1 day. Seek immediate medical attention for any worrisome symptoms. *If you do not have a primary care provider please contact the [facility] Resource line at [phone]. They will ask some questions about your medical history and help get you set up with a doctor in the community. Prescriptions: No Action glucose 4 gram tablet,chewable 4 gram PO Q15M PRN (Reason: hypoglycemia) Qty: 30 0RF Rx Instructions: until response metoprolol succinate 50 mg tablet extended release 24 hr 75 mg PO BEDTIME rosuvastatin 20 mg tablet 40 mg PO BEDTIME ondansetron 4 mg tablet,disintegrating 4 mg PO Q6H PRN (Reason: nausea and vomiting) Qty: 20 0RF diphenhydramine HCl 50 mg Capsule 50 mg PO BEDTIME PRN (Reason: Sleep) Rx Instructions: for itching and sleep insulin degludec [Tresiba FlexTouch U-200] 200 unit/mL (3 mL) insulin pen See Rx Instructions .ROUTE .COMPLEX Rx Instructions: 20u in the am 6units at bedtime (DME) Dexcom G7 Sensor Device MISCELLANEOUS Q10D amlodipine 5 mg tablet 5 mg PO ONCE PM insulin lispro [Admelog U-100 Insulin lispro] 100 unit/mL Solution 14 unit SUBCUT ACHS Qty: 6 0RF insulin degludec [Tresiba FlexTouch U-100] 100 unit/mL (3 mL) insulin pen 15 unit SUBCUT BID Qty: 15 0RF Referrals: Maria Ines Limon DO [Primary Care Provider] - Stand Alone Forms: Patient Portal/API/Survey
--- NOTE | 2024-09-10 05:12 | ED.BACK ---
HPI - Back Pain/Injury General Chief Complaint: Back Pain/Injury Stated Complaint: Back pain Time Seen by Provider: 08/25/24 21:37 Source: patient, EMS, RN notes reviewed and old records reviewed Mode of arrival: EMS Limitations: no limitations History of Present Illness HPI Narrative: 34-year-old female history of insulin-dependent diabetes, multiple complications including diabetic retinopathy blindness, CKD stage 4 follows with [facility], CHF, hypertension presents complaint of cramping and discomfort in bilateral legs and lower back discomfort. No reported fevers but patient states she feels cold. No cough cold or congestion. No chest pain or pressure, no shortness of breath. Patient feels nauseated but denies any vomiting. No diarrhea or constipation. No dysuria urgency or frequency. Patient states could you can see she was unsure if her legs has been swollen lately but does not appreciate the sensation of swelling. Patient was recently hospitalized for over a through September 06 for hyperkalemia. Patient states no new changes to her medications after discharge. Related Data Home Medications Medication Instructions Recorded Confirmed diphenhydramine HCl 50 mg capsule 50 mg PO BEDTIME PRN Sleep 09/29/20 09/05/24 insulin degludec 200 unit/mL (3 See Rx Instructions .Route .COMPLEX 11/13/21 07/02/22 mL) subcutaneous pen (Tresiba FlexTouch U-200 insulin) metoprolol succinate 50 mg 75 mg PO BEDTIME 10/20/23 09/05/24 tablet,extended release 24 hr rosuvastatin 20 mg tablet 40 mg PO BEDTIME 10/20/23 09/05/24 blood-glucose sensor (Dexcom G7 07/19/24 09/05/24 Sensor device) amlodipine 5 mg tablet 5 mg PO ONCE PM 09/04/24 09/04/24 Previous Rx's Medication Instructions Recorded glucose 4 gram chewable tablet 4 gram PO Q15M PRN hypoglycemia 12/12/18 #30 tabs ondansetron 4 mg disintegrating 4 mg PO Q6H PRN nausea and 08/25/24 tablet vomiting #20 tabs insulin degludec 100 unit/mL (3 15 unit (0.15 mL) SUBCUT BID #15 mL 09/06/24 mL) subcutaneous pen (Tresiba FlexTouch U-100 insulin) insulin lispro 100 unit/mL 14 unit (0.14 mL) SUBCUT ACHS #6 mL 09/06/24 subcutaneous solution (Admelog U-100 Insulin lispro) Allergies Allergy/AdvReac Type Severity Reaction Status Date / Time arredondo [ARREDONDO] Allergy Intermediate Hives, Verified 09/04/24 18:11 pruritus iodine [IODINE] Allergy Intermediate rash, itchy Verified 09/04/24 18:11 morphine Allergy Intermediate Difficulty Verified 09/04/24 18:11 Breathing shellfish derived Allergy Intermediate rash Verified 09/04/24 18:11 [SHELLFISH DERIVED] adhesive [ADHESIVE] Allergy Unknown tape Verified 09/04/24 18:11 latex [LATEX] Allergy Unknown Hives Verified 09/04/24 18:11 amoxicillin [From Augmentin] AdvReac Severe Abnormal Verified 09/04/24 18:11 LFTs, N/V clavulanic acid AdvReac Severe Abnormal Verified 09/04/24 18:11 [From Augmentin] LFTs, N/V fentanyl AdvReac Severe other Verified 09/04/24 18:11 Review of Systems Review of Systems ROS Unobtainable: All systems reviewed & are unremarkable except as noted in HPI and below Patient History Medical History Abnormal liver function tests Noncompliance w/medication treatment due to intermit use of medication Irregular menstrual cycle Migraine headache History of pyelonephritis DKA (diabetic ketoacidoses) Nephrolithiasis Type 1 diabetes mellitus Surgical History Status post cholecystectomy Hx of cataract surgery Hx of local excision of skin lesion [place] teeth extracted Status post laser lithotripsy of ureteral calculus History of ureter stent Family History Father In good health Mother Cardiac disease Social History details: Engaged household members: family alcohol intake: never alcohol intake frequency: holidays/special occasions only Exam Narrative Exam Narrative: Exam Narrative:? GENERAL: Alert and oriented x three, female in moderate distress HEENT: Head normocephalic, atraumatic, EOMI, pupils reactive, face symmetric, moist mucous membranes NECK: Supple, full range of motion CARDIOVASCULAR: Regular rate and rhythm without murmurs, rubs or gallops.? Bilateral lower extremity edema. RESPIRATORY: Breath sounds equal bilaterally, no wheezes rales or rhonchi.? No tachypnea accessory muscle use. ABDOMEN: Soft, nontender.? Nondistended.? Normoactive bowel sounds all 4 quadrants.? No guarding or rebound, rigidity, no mass : No CVA tenderness EXTREMITIES: Normal range of motion.? Cap refill less than 2 seconds bilateral lower extremities.? 2+ pulses bilaterally.? Neurovascularly intact NEUROLOGICAL: Cranial nerves II through XII grossly intact.? Moving all extremities SKIN: Warm, dry, no petechiae, no rashes or lesions. Initial Vital Signs Initial Vital Signs: Vital Signs Pulse Rate 78 08/25/24 21:04 Pulse Oximetry 98 08/25/24 21:04 Course Orders Ordered: ED Orders 09/10/24 05:08 XR chest 1V Stat CMP [Comprehensive Metabolic Panel] Stat Complete Blood Count AUTO DIFF Stat Ketones (Beta-Hydroxybutyrate) Stat Lipase Stat Venous Blood Gas STAT Discontinued Medications Diazepam (Diazepam 2 Mg Tablet) 2 mg PO NOW ONE Stop: 08/26/24 00:18 Last Admin: 08/26/24 00:35 Dose: Not Given Documented By: SB Ondansetron HCl (Ondansetron 4 Mg/2 Ml Inj) 4 mg IV NOW ONE Stop: 08/26/24 00:41 Last Admin: 08/26/24 00:44 Dose: 4 mg Documented By: KEN MDM - Back Pain/Injury Lab Data 08/25/24 22:33 08/25/24 22:33 Labs: Lab Results 08/25/24 Range/Units 22:33 WBC 10.7 (4.5-11.0) X10^3/uL RBC 3.58 L (4.0-5.2) X10^6/uL Hgb 10.7 L (12.0-16.0) g/dL Hct 33.6 L (36-46) % MCV 93.7 (80-100) fL MCH 29.8 (26-34) PG MCHC 31.8 (30-36) % RDW 15.0 H (11.6-14.8) % Plt Count 245 (150-400) X10^3/uL Neut % (Auto) 87.1 H (50-75) % Lymph % (Auto) 6.6 L (25-40) % [place] % (Auto) 5.2 (3-14) % Eos % (Auto) 0.5 L (2-4) % Baso % (Auto) 0.6 (0-2) % Neut # (Auto) 9300 H (3909-3649) /uL Lymph # (Auto) 700 L (6909-6221) /uL [place] # (Auto) 600 (0-900) /uL Eos # (Auto) 100 (0-450) /uL Baso # (Auto) 100 (0-100) /uL Sodium 144 (137-145) mmol/L Potassium 4.8 (3.4-5.1) mmol/L Chloride 107 (98-107) mmol/L Carbon Dioxide 27 (22-32) mmol/L BUN 41 H (7-17) mg/dL Creatinine 3.98 H (0.52-1.04) mg/dL Estimated GFR 15 L (>60) mL/min BUN/Creatinine Ratio 10.3 (6-22) Glucose 156 H (70-99) mg/dL Calcium 8.1 L (8.4-10.2) mg/dL Magnesium 2.0 (1.6-2.3) mg/dL Total Bilirubin 0.6 (0.2-1.3) mg/dL AST 97 H (14-36) IU/L ALT 54 H (<35) IU/L Alkaline Phosphatase 201 H D (38-126) U/L Total Creatine Kinase 241 H (30-135) U/L Troponin I 0.013 (0.01-0.034) ng/mL NT-Pro-B Natriuret Pep 52114 H (<125) pg/mL Total Protein 7.5 (6.3-8.2) g/dL Albumin 4.5 (3.5-5.0) g/dL Globulin 3.0 (1.7-4.1) g/dL Albumin/Globulin Ratio 1.5 (1.0-2.8) Lipase 19 L (23-300) U/L Discharge Plan Departure Patient Disposition: Home Clinical Impression: CKD (chronic kidney disease), Dyspnea Activity Restrictions/Additional Instructions: Please follow up with the primary care doctor and your hotel receptionist for your scheduled appointments Please read the discharge instructions sheet carefully and bring all papers to all doctor follow-up visits, as it may contain information that your doctor may want to see. Disease processes change and evolve, if your symptoms worsen or if you develop any new symptoms that are concerning to you please return for evaluation. Your evaluation today does not show any evidence of any life-threatening/serious illnesses requiring admission to the hospital or surgery. Please follow-up with your doctor for re-evaluation in approximately 1 day. Seek immediate medical attention for any worrisome symptoms. *If you do not have a primary care provider please contact the [facility] Resource line at [phone]. They will ask some questions about your medical history and help get you set up with a doctor in the community. Prescriptions: No Action glucose 4 gram tablet,chewable 4 gram PO Q15M PRN (Reason: hypoglycemia) Qty: 30 0RF Rx Instructions: until response metoprolol succinate 50 mg tablet extended release 24 hr 75 mg PO BEDTIME rosuvastatin 20 mg tablet 40 mg PO BEDTIME ondansetron 4 mg tablet,disintegrating 4 mg PO Q6H PRN (Reason: nausea and vomiting) Qty: 20 0RF diphenhydramine HCl 50 mg Capsule 50 mg PO BEDTIME PRN (Reason: Sleep) Rx Instructions: for itching and sleep insulin degludec [Tresiba FlexTouch U-200] 200 unit/mL (3 mL) insulin pen See Rx Instructions .ROUTE .COMPLEX Rx Instructions: 20u in the am 6units at bedtime (DME) Dexcom G7 Sensor Device MISCELLANEOUS Q10D amlodipine 5 mg tablet 5 mg PO ONCE PM insulin lispro [Admelog U-100 Insulin lispro] 100 unit/mL Solution 14 unit SUBCUT ACHS Qty: 6 0RF insulin degludec [Tresiba FlexTouch U-100] 100 unit/mL (3 mL) insulin pen 15 unit SUBCUT BID Qty: 15 0RF Referrals: Maria Ines Limon DO [Primary Care Provider] - Stand Alone Forms: Patient Portal/API/Survey
== END 2024-08-26 01:15 | disposition home or self-care (01) ==
PROVIDERS: Emergency Provider Student in an Organized Health Care Education/Training Program; PCP Student in an Organized Health Care Education/Training Program
DX: E10.22 Type 1 diabetes mellitus with diabetic chronic kidney disease (principal); M54.50 Low back pain, unspecified; N18.9 Chronic kidney disease, unspecified; R06.00 Dyspnea, unspecified; R11.2 Nausea with vomiting, unspecified; R10.84 Generalized abdominal pain; Z96.41 Presence of insulin pump (external) (internal)
CPT/HCPCS: 36415; 71045; 74176; 80053; 81001; 82009; 82550; 82805; 82962; 83690; 83735; 83880; 84484; 85025; 93005; 93010; 96361; 96374; 96375; 99284; J1171; J2405

== ENCOUNTER 2024-09-04 18:02 | Inpatient (IN) | payer OTHER, SELFPAY ==
[2024-07-18 20:44] VITALS: BMI 27.5
[2024-09-04] VITALS (16 sets, daily range): BP systolic 142–182; BP diastolic 68–99; PULSE 72–83; RESP 12–18; TEMP 36.3; O2SAT 92–98; BMI 26.4; BMI 29.5
--- NOTE | 2024-09-04 18:32 | EKG_ITS ---
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
[2024-09-04 19:24] LABS: Add Manual Diff / Slide Review NO; Basophils Absolute Auto 0 /uL (0-100); Basophils Percent Auto 0.5 % (0-2); Eosinophils Absolute Auto 400 /uL (0-450); Eosinophils Percent Auto 5.1 % (2-4); Hematocrit 34.8 % (36-46); Lymphocytes Absolute Auto 1200 /uL (1100-4500); Lymphocytes Percent Auto 14.6 % (25-40); Mean Corpuscular HGB Conc 31.5 % (30-36); Mean Corpuscular Hemoglobin 30.2 PG (26-34); Mean Corpuscular Volume 95.8 fL (80-100); Monocytes Absolute Auto 1100 /uL (0-900); Monocytes Percent Auto 14.1 % (3-14); Neutrophils Absolute Auto 5400 /uL (1500-7000); Neutrophils Percent Auto 65.7 % (50-75); Platelet Count 183 X10^3/uL (150-400); Red Blood Cell Count 3.63 X10^6/uL (4.0-5.2); Red Cell Distribution Width 15.2 % (11.6-14.8); White Blood Cell Count 8.2 X10^3/uL (4.5-11.0)
[2024-09-04 19:28] LABS: Prothrombin Time 11.6 SECONDS (9.4-12.5)
[2024-09-04 19:30] LABS: PTT Partial Thromboplastin Tim 33 SECONDS (25.1-36.5)
[2024-09-04 19:32] LABS: Alanine Aminotransferase 297 IU/L (<35); Albumin 3.8 g/dL (3.5-5.0); Albumin Globulin Ratio 1.4 (1.0-2.8); Alkaline Phosphatase 287 U/L (38-126); BUN Creatinine Ratio 6.7 (6-22); Bilirubin Total 0.6 mg/dL (0.2-1.3); Blood Urea Nitrogen 23 mg/dL (7-17); Calcium 8.6 mg/dL (8.4-10.2); Carbon Dioxide 19 mmol/L (22-32); Chloride 110 mmol/L (98-107); Creatine Kinase 301 U/L (30-135); Estimated Glomerular Filt Rate 17 mL/min (>60); Globulin 2.8 g/dL (1.7-4.1); Glucose 199 mg/dL (70-99); Lipase 40 U/L (23-300); Magnesium 2.1 mg/dL (1.6-2.3); Sodium 136 mmol/L (137-145); Total Protein 6.6 g/dL (6.3-8.2)
[2024-09-04 19:42] LABS: Potassium 5.9 mmol/L (3.4-5.1)
[2024-09-04 19:44] LABS: Aspartate Aminotransferase 723 IU/L (14-36); HEMOLYSIS 25 (0-50); NT-proBNP (BNP-Adult 18+) 8980 pg/mL (<125); Troponin I < 0.012 ng/mL (0.01-0.034)
--- NOTE | 2024-09-04 20:17 | ED.RECABL ---
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 Other than what is stated 14 point review of system is negative. Related Data Home Medications Medication Instructions Recorded Confirmed glucagon (human recombinant) 1 mg 1 mg SUBCUT DIRECTED 02/16/19 07/19/24 solution for injection (Glucagon Emergency Kit) diphenhydramine HCl 50 mg capsule 50 mg PO BEDTIME PRN Sleep 09/29/20 07/18/24 insulin degludec 200 unit/mL (3 See Rx Instructions .Route .COMPLEX 11/13/21 07/02/22 mL) subcutaneous pen (Tresiba FlexTouch U-200 insulin) metoprolol succinate 50 mg 50 mg PO BEDTIME 10/20/23 07/18/24 tablet,extended release 24 hr rosuvastatin 20 mg tablet 20 mg PO BEDTIME 10/20/23 07/18/24 blood-glucose sensor (Dexcom G7 07/19/24 07/19/24 Sensor device) insulin aspart U-100 100 unit/mL 100 unit DAILY 07/19/24 07/19/24 subcutaneous solution (Novolog U-100 Insulin aspart) amlodipine 5 mg tablet 5 mg PO ONCE PM 09/04/24 09/04/24 Previous Rx's Medication Instructions Recorded glucose 4 gram chewable tablet 4 gram PO Q15M PRN hypoglycemia 12/12/18 #30 tabs ondansetron 4 mg disintegrating 4 mg PO Q6H PRN nausea and 08/25/24 tablet vomiting #20 tabs Allergies Allergy/AdvReac Type Severity Reaction Status Date / Time abdalla [ABDALLA] Allergy Intermediate Hives, Verified 09/04/24 18:11 pruritus iodine [IODINE] Allergy Intermediate rash, itchy Verified 09/04/24 18:11 morphine Allergy Intermediate Difficulty Verified 09/04/24 18:11 Breathing shellfish derived Allergy Intermediate rash Verified 09/04/24 18:11 [SHELLFISH DERIVED] adhesive [ADHESIVE] Allergy Unknown tape Verified 09/04/24 18:11 latex [LATEX] Allergy Unknown Hives Verified 09/04/24 18:11 amoxicillin [From Augmentin] AdvReac Severe Abnormal Verified 09/04/24 18:11 LFTs, N/V clavulanic acid AdvReac Severe Abnormal Verified 09/04/24 18:11 [From Augmentin] LFTs, N/V fentanyl AdvReac Severe other Verified 09/04/24 18:11 Review of Systems Review of Systems ROS Unobtainable: All systems reviewed & are unremarkable except as noted in HPI and below Patient History Medical History Abnormal liver function tests Noncompliance w/medication treatment due to intermit use of medication Irregular menstrual cycle Migraine headache History of pyelonephritis DKA (diabetic ketoacidoses) Nephrolithiasis Type 1 diabetes mellitus Surgical History Status post cholecystectomy Hx of cataract surgery Hx of local excision of skin lesion [place] teeth extracted Status post laser lithotripsy of ureteral calculus History of ureter stent Family History Father In good health Mother Cardiac disease Social History details: Engaged household members: family Smoking Status: Never smoker alcohol intake: never Smoking Status: Never smoker alcohol intake frequency: holidays/special occasions only Exam Narrative Exam Narrative: GENERAL: [34] year old patient appears stated age. Well-developed patient, in mild distress. HEAD: Atraumatic. Normocephalic. EYES: Pupils equal round and reactive. Extraocular motions intact. No scleral icterus. No injection or drainage. ENT: Nose without bleeding, purulent drainage. Throat without erythema, tonsillar hypertrophy or exudate. Airway patent. NECK: Trachea midline. Non tender CARDIOVASCULAR: Regular rate and rhythm without murmurs, gallops, or rubs. RESPIRATORY: Clear to auscultation. Breath sounds equal bilaterally. No wheezes, rales, or rhonchi. GASTROINTESTINAL: Abdomen soft, non-tender, nondistended. EXTREMITIES: No edema or joint tenderness. BACK: Nontender without deformity or crepitance. No flank tenderness. NEURO: AOx3. SKIN: No rash or erythema of visible areas Initial Vital Signs Initial Vital Signs: Vital Signs Pulse Rate 79 09/04/24 18:12 Respiratory Rate 16 09/04/24 18:12 Blood Pressure 142/70 H 09/04/24 18:12 Pulse Oximetry 95 09/04/24 18:12 Oxygen Delivery Method Room Air 09/04/24 18:12 Course Orders Ordered: ED Orders 09/04/24 18:23 EKG-12 Lead Stat RT Consult Eval and Treat NOW 09/04/24 19:10 Complete Blood Count AUTO DIFF Stat Comprehensive Metabolic Panel Stat Lactate (Lactic Acid) Stat Lipase Stat Magnesium Stat NT-proBNP (BNP-Adult 18+) Stat PTT Partial Thromboplastin Lee Stat Prothrombin Time INR Stat Troponin & CK Cardiac Panel Stat 09/04/24 20:19 Consult to [facility] [place] - Radio Survey Worker Stat Sodium Bicarbonate 50 meq/ (Sterile Water) 450 mls @ 200 mls/hr IV CONT BLAISE Discontinued Medications Furosemide (Furosemide 40 Mg/4 Ml Vial) 40 mg IV NOW ONE Stop: 09/04/24 20:28 Calcium Gluconate 4.65 meq/ (Sodium Chloride) 60 mls @ 180 mls/hr IV NOW ONE Stop: 09/04/24 20:46 Insulin Human Regular (Insulin Regular 100 Unit/Ml 3 Ml Vial) 10 unit IV NOW ONE Stop: 09/04/24 20:28 Sodium Zirconium Cyclosilicate (Sodium Zirconium Cyclosilicate 10 Gm Powd.Pack) 10 gm PO NOW ONE Stop: 09/04/24 20:28 Vital Signs Vital signs: Vital Signs - 8 hr 09/04/24 18:12 09/04/24 18:25 09/04/24 18:30 Pulse Rate 79 79 78 Respiratory Rate 16 16 Blood Pressure 142/70 H Pulse Oximetry 95 95 94 Oxygen Delivery Method Room Air Oxygen Flow Rate 09/04/24 18:37 09/04/24 18:37 09/04/24 19:00 Pulse Rate 76 75 Respiratory Rate 16 18 Blood Pressure 163/87 H Pulse Oximetry 96 95 Oxygen Delivery Method Oxygen Flow Rate 09/04/24 19:17 09/04/24 19:17 09/04/24 19:30 Pulse Rate 76 74 Respiratory Rate 16 Blood Pressure 155/78 H Pulse Oximetry 94 92 Oxygen Delivery Method Oxygen Flow Rate 09/04/24 19:30 09/04/24 20:00 09/04/24 20:00 Pulse Rate 72 Respiratory Rate 16 12 Blood Pressure 156/86 H 143/68 H Pulse Oximetry 92 Oxygen Delivery Method Nasal Cannula Oxygen Flow Rate 1 09/04/24 20:30 09/04/24 20:30 Pulse Rate 73 Respiratory Rate 12 Blood Pressure 161/87 H Pulse Oximetry 95 Oxygen Delivery Method Nasal Cannula Oxygen Flow Rate 1 MDM - Recheck/Abnormal Lab/Rx Lab Data 09/04/24 19:10 09/04/24 19:10 Labs: Lab Results 09/04/24 Range/Units 19:10 WBC 8.2 (4.5-11.0) X10^3/uL RBC 3.63 L (4.0-5.2) X10^6/uL Hgb 11.0 L (12.0-16.0) g/dL Hct 34.8 L (36-46) % MCV 95.8 (80-100) fL MCH 30.2 (26-34) PG MCHC 31.5 (30-36) % RDW 15.2 H (11.6-14.8) % Plt Count 183 (150-400) X10^3/uL Neut % (Auto) 65.7 (50-75) % Lymph % (Auto) 14.6 L (25-40) % [place] % (Auto) 14.1 H (3-14) % Eos % (Auto) 5.1 H (2-4) % Baso % (Auto) 0.5 (0-2) % Neut # (Auto) 5400 (3210-1853) /uL Lymph # (Auto) 1200 (8486-3678) /uL [place] # (Auto) 1100 H (0-900) /uL Eos # (Auto) 400 (0-450) /uL Baso # (Auto) 0 (0-100) /uL PT 11.6 (9.4-12.5) SECONDS INR 1.0 (0.9-1.3) APTT 33 (25.1-36.5) SECONDS Sodium 136 L (137-145) mmol/L Potassium 5.9 H (3.4-5.1) mmol/L Chloride 110 H (98-107) mmol/L Carbon Dioxide 19 L (22-32) mmol/L BUN 23 H (7-17) mg/dL Creatinine 3.45 H (0.52-1.04) mg/dL Estimated GFR 17 L (>60) mL/min BUN/Creatinine Ratio 6.7 (6-22) Glucose 199 H (70-99) mg/dL Lactate 1.0 (0.7-2.1) mmol/L Calcium 8.6 (8.4-10.2) mg/dL Magnesium 2.1 (1.6-2.3) mg/dL Total Bilirubin 0.6 (0.2-1.3) mg/dL AST 723 H (14-36) IU/L ALT 297 H (<35) IU/L Alkaline Phosphatase 287 H (38-126) U/L Total Creatine Kinase 301 H (30-135) U/L Troponin I < 0.012 (0.01-0.034) ng/mL NT-Pro-B Natriuret Pep 8980 H (<125) pg/mL Total Protein 6.6 (6.3-8.2) g/dL Albumin 3.8 (3.5-5.0) g/dL Globulin 2.8 (1.7-4.1) g/dL Albumin/Globulin Ratio 1.4 (1.0-2.8) Lipase 40 D (23-300) U/L Point of Care Testing Glucose POC 294 Imaging Data Chest x-ray: Radiologist's Impression: [place] [address] XRay Report Signed Patient: Sarabjit Jimenes MR#: [id number] : 1990 Acct:[id number] Age/Sex: 34 / F Date of Service: 08/25/24 Loc: ED Accession Number: [id number] Procedure: XR chest 1V Ordering Provider: Julio Cesar Le D.O. PROCEDURE: XR CHEST 1V INDICATIONS: dyspnea TECHNIQUE: One view of the chest was acquired. COMPARISON: [facility], CR, XR CHEST 1V, 07/19/2024, 9:37. [facility], CR, XR CHEST 1V, 07/18/2024, 11:34. [facility], CR, XR CHEST 1V, 10/20/2023, 8:40. [facility], CR, XR CHEST 1V, 05/12/2023, 13:54. FINDINGS: Surgical changes and devices: None. Lungs and pleura: Right basilar subsegmental atelectasis. No pleural effusions or pneumothorax. Mediastinum: Mediastinal contours appear normal. Heart size is normal. Bones and chest wall: No suspicious bony lesions. Overlying soft tissues appear unremarkable. IMPRESSION: Right basilar subsegmental atelectasis. Otherwise, no acute cardiothoracic process. ECG Data Interpretation: NSR HR 78 IN 146 QRS [address]-t wave change Unchanged from 08/25/24 MDM Narrative Medical decision making narrative: All lab work EKG nurse triage note medication list imaging modalities and all previous ER visits reviewed. Potassium was 5.9 sodium was 136 BUN is 23 creatinine 3.45 AST 723 ALT 297 alk-phos 287 CK was 301 and BNP was 8980. EKG showed normal sinus rhythm with no peaked T-waves. Patient given insulin glucose Lasix Lokelma and calcium gluconate here. Differential diagnosis includes hyperkalemia, lab error, CHF, CKD. case discussed with Dr. Worley hospitalist who has graciously accepted the patient for inpatient admission. Discharge Plan Departure Patient Disposition: Admitted as Observation Clinical Impression: Acute hyperkalemia Prescriptions: No Action glucose 4 gram tablet,chewable 4 gram PO Q15M PRN (Reason: hypoglycemia) Qty: 30 0RF Rx Instructions: until response Glucagon Emergency Kit (human) 1 mg recon soln 1 mg subcut DIRECTED metoprolol succinate 50 mg tablet extended release 24 hr 50 mg PO BEDTIME rosuvastatin 20 mg tablet 20 mg PO BEDTIME ondansetron 4 mg tablet,disintegrating 4 mg PO Q6H PRN (Reason: nausea and vomiting) Qty: 20 0RF diphenhydramine HCl 50 mg Capsule 50 mg PO BEDTIME PRN (Reason: Sleep) Rx Instructions: for itching and sleep insulin degludec [Tresiba FlexTouch U-200] 200 unit/mL (3 mL) insulin pen See Rx Instructions .ROUTE .COMPLEX Rx Instructions: 20u in the am 6units at bedtime insulin aspart U-100 [Novolog U-100 Insulin aspart] 100 unit/mL solution 100 unit DAILY (DME) Dexcom G7 Sensor Device MISCELLANEOUS Q10D amlodipine 5 mg tablet 5 mg PO ONCE PM Referrals: Maria Ines Limon DO [Primary Care Provider] - Admit Date/Time: 09/04/24 21:22 Admit Provider: Irwin Mack
--- NOTE | 2024-09-04 20:24 | PC.NURSE ---
Pt mom Argelia expressed being tired and fatigued from taking care of Natausha at home. She is the primary caregiver of the pt now and has to quit her job to take care of Natausha at home. She is concerned about getting help with home health and interested in financial resources as well.
[2024-09-04] MEDS: FUROSEMIDE 40 MG/4 ML VIAL IV (21:15)
[2024-09-04] MEDS: SODIUM ZIRCONIUM CYCLOSILICATE 10 GM POWD.PACK PO (21:15)
[2024-09-04] MEDS: INSULIN REGULAR 100 UNIT/ML 3 ML VIAL 10 UNIT IV (21:16)
[2024-09-04] MEDS: CALCIUM GLUCONATE 4.65 MEQ in SODIUM CHLORIDE 0.9% 50 ML 180 MEQ IV (21:21)
[2024-09-04] MEDS: DEXTROSE 50 % IN WATER 25 GM/50 ML SYRINGE IV (21:25)
[2024-09-04] MEDS: SODIUM BICARB 8.4% SYRINGE 50 MEQ IV (21:52)
--- NOTE | 2024-09-04 23:30 | P.HP_ITS ---
History of Present Illness History of Present Illness Date Patient Seen: 09/04/24 Time Patient Seen: 23:15 Chief complaint: Abnormal Labs Sent from PCP Narrative: 34 y/o with PMH of IDDM - type 1, CHF, CKD stage 4, diabetic retinopathy with blindness, followed by nephrology in preparation for HD, sent to [place] for hyperkalemia. In the ED she had insulin with glucose, calcium gluconate, Lokelma, bicarbs and Lasix. She feels as usual, otherwise. Without chest pain or pressure, palpitations, worsening weakness or shortness of breath. EKG w/o changes. Treated with calcium gluconate, insulin, glucose, Lokelma. Placed in observation on telemetry monitoring for hyperkalemia [facility] Medical History Abnormal liver function tests Noncompliance w/medication treatment due to intermit use of medication Irregular menstrual cycle Migraine headache History of pyelonephritis DKA (diabetic ketoacidoses) Nephrolithiasis Type 1 diabetes mellitus Surgical History Status post cholecystectomy Hx of cataract surgery Hx of local excision of skin lesion [place] teeth extracted Status post laser lithotripsy of ureteral calculus History of ureter stent Family History Father In good health Mother Cardiac disease Social History details: Engaged household members: family Smoking Status: Never smoker alcohol intake: never Meds Home Medications and Allergies Home Medications Medication Instructions Recorded Confirmed Type glucose 4 gram chewable tablet 4 gram PO Q15M PRN hypoglycemia 12/12/18 07/02/22 Rx #30 tabs glucagon (human recombinant) 1 mg 1 mg SUBCUT DIRECTED 02/16/19 07/19/24 History solution for injection (Glucagon Emergency Kit) diphenhydramine HCl 50 mg capsule 50 mg PO BEDTIME PRN Sleep 09/29/20 09/05/24 History insulin degludec 200 unit/mL (3 See Rx Instructions .Route .COMPLEX 11/13/21 07/02/22 History mL) subcutaneous pen (Tresiba FlexTouch U-200 insulin) metoprolol succinate 50 mg 75 mg PO BEDTIME 10/20/23 09/05/24 History tablet,extended release 24 hr rosuvastatin 20 mg tablet 40 mg PO BEDTIME 10/20/23 09/05/24 History blood-glucose sensor (Dexcom G7 07/19/24 07/19/24 History Sensor device) insulin aspart U-100 100 unit/mL 100 unit DAILY 07/19/24 07/19/24 History subcutaneous solution (Novolog U-100 Insulin aspart) ondansetron 4 mg disintegrating 4 mg PO Q6H PRN nausea and 08/25/24 09/05/24 Rx tablet vomiting #20 tabs amlodipine 5 mg tablet 5 mg PO ONCE PM 09/04/24 09/04/24 History Allergies Allergy/AdvReac Type Severity Reaction Status Date / Time abdalla [ABDALLA] Allergy Intermediate Hives, Verified 09/04/24 18:11 pruritus iodine [IODINE] Allergy Intermediate rash, itchy Verified 09/04/24 18:11 morphine Allergy Intermediate Difficulty Verified 09/04/24 18:11 Breathing shellfish derived Allergy Intermediate rash Verified 09/04/24 18:11 [SHELLFISH DERIVED] adhesive [ADHESIVE] Allergy Unknown tape Verified 09/04/24 18:11 latex [LATEX] Allergy Unknown Hives Verified 09/04/24 18:11 amoxicillin [From Augmentin] AdvReac Severe Abnormal Verified 09/04/24 18:11 LFTs, N/V clavulanic acid AdvReac Severe Abnormal Verified 09/04/24 18:11 [From Augmentin] LFTs, N/V fentanyl AdvReac Severe other Verified 09/04/24 18:11 Review of Systems Review of Systems Narrative: General - w/o fever or chills, chronic weakness HEENT - legally blind, b/l CVS - exertional dyspnea, w/o chest pain or palpitations RS - w/o cough GI - w/o abdominal pain Exam Vital Signs (past 8 hours): - 09/04/24 18:12 09/04/24 18:25 09/04/24 18:30 Temperature Pulse Rate 79 79 78 Respiratory Rate 16 16 Blood Pressure 142/70 H Pulse Oximetry 95 95 94 Oxygen Delivery Method Room Air Oxygen Flow Rate 09/04/24 18:37 09/04/24 18:37 09/04/24 19:00 Temperature Pulse Rate 76 75 Respiratory Rate 16 18 Blood Pressure 163/87 H Pulse Oximetry 96 95 Oxygen Delivery Method Oxygen Flow Rate 09/04/24 19:17 09/04/24 19:17 09/04/24 19:30 Temperature Pulse Rate 76 74 Respiratory Rate 16 Blood Pressure 155/78 H Pulse Oximetry 94 92 Oxygen Delivery Method Nasal Cannula Oxygen Flow Rate 1 09/04/24 19:30 09/04/24 20:00 09/04/24 20:00 Temperature Pulse Rate 72 Respiratory Rate 16 12 Blood Pressure 156/86 H 143/68 H Pulse Oximetry 92 Oxygen Delivery Method Nasal Cannula Oxygen Flow Rate 1 09/04/24 20:30 09/04/24 20:30 09/04/24 21:00 Temperature Pulse Rate 73 74 Respiratory Rate 12 Blood Pressure 161/87 H Pulse Oximetry 95 95 Oxygen Delivery Method Nasal Cannula Nasal Cannula Oxygen Flow Rate 1 1 09/04/24 21:00 09/04/24 21:30 09/04/24 21:30 Temperature Pulse Rate 74 Respiratory Rate 16 Blood Pressure 167/80 H 182/99 H Pulse Oximetry 94 Oxygen Delivery Method Nasal Cannula Oxygen Flow Rate 1 09/04/24 22:00 09/04/24 22:00 09/04/24 22:30 Temperature Pulse Rate 79 79 Respiratory Rate 14 17 Blood Pressure 155/77 H Pulse Oximetry 97 97 Oxygen Delivery Method Nasal Cannula Oxygen Flow Rate 1 09/04/24 22:30 09/04/24 22:52 09/04/24 22:52 Temperature 97.3 F L Pulse Rate 83 83 Respiratory Rate 14 14 Blood Pressure 148/77 H 160/87 H Pulse Oximetry 96 Oxygen Delivery Method Oxygen Flow Rate 1 09/04/24 22:55 09/04/24 22:55 Temperature Pulse Rate 82 Respiratory Rate 17 Blood Pressure 151/76 H Pulse Oximetry 98 Oxygen Delivery Method Oxygen Flow Rate Oxygen Delivery Method Nasal Cannula Oxygen Flow Rate 1 Narrative Exam Narrative: General - in no distress HEENT - blindness, both eyes CVS - RRR RS - normal respiratory effort Ext - b/l leg edema 2-3 + Skin - pale Neuro - w/o focal weakness Psych - lucid, flat affect Objective ECG Impression: NSR 78, QTc 456 Without signs of hyperkalemia Labs 09/05/24 04:21 09/05/24 04:21 Labs: Laboratory Results - last 24 hr 09/04/24 19:10 WBC 8.2 RBC 3.63 L Hgb 11.0 L Hct 34.8 L MCV 95.8 MCH 30.2 MCHC 31.5 RDW 15.2 H Plt Count 183 Neut % (Auto) 65.7 Lymph % (Auto) 14.6 L [place] % (Auto) 14.1 H Eos % (Auto) 5.1 H Baso % (Auto) 0.5 Neut # (Auto) 5400 Lymph # (Auto) 1200 [place] # (Auto) 1100 H Eos # (Auto) 400 Baso # (Auto) 0 PT 11.6 INR 1.0 APTT 33 Sodium 136 L Potassium 5.9 H Chloride 110 H Carbon Dioxide 19 L BUN 23 H Creatinine 3.45 H Estimated GFR 17 L BUN/Creatinine Ratio 6.7 Glucose 199 H Lactate 1.0 Calcium 8.6 Magnesium 2.1 Total Bilirubin 0.6 AST 723 H ALT 297 H Alkaline Phosphatase 287 H Total Creatine Kinase 301 H Troponin I < 0.012 NT-Pro-B Natriuret Pep 8980 H Total Protein 6.6 Albumin 3.8 Globulin 2.8 Albumin/Globulin Ratio 1.4 Lipase 40 D Assessment & Plan Assessment and plan (1) Acute hyperkalemia: Status: Acute (2) CKD (chronic kidney disease): Status: Acute (3) Diabetes mellitus type I: Problem details: Will resume usual insulin once she is no longer in DKA Status: Acute (4) CHF (congestive heart failure): Status: Acute Assessment & Plan narrative: Hyperkalemia - initial K 5.6, repeated at 5 am 6.5 - another 10 units of regular insulin with dextrose, Ca-gluconate and Lokelma given at 6 AM CKD / renovascular HTN - severe, manuscripts archivist plans venous mapping for fistula - metoprolol, amlodipine IDDM type 1 - blind from retinopathy - insulin pump CHF - combined, recent EF 50%, diastolic dysfunction - not fluid overloaded, she was given 40 mg of Lasix in the ED for hyperkalemia DVT prophylaxis - heparin Patient consented to telemedicine, audio-visual visit with RN assisting. Patient located at [facility], provider located in [place]. Time-Based Coding :: [TOTAL MINUTES] spent with patient and on the chart (including review of chart, obtaining history, exam, reviewing outside data, placing orders, documenting exam and treatment plan, and counseling patient) on [DATE]. Quality VTE Deep Vein Thrombosis/Pulmonary Embolism Present on Admission: No
[2024-09-04 23:54] LABS: BUN Creatinine Ratio 6.8 (6-22); Blood Urea Nitrogen 24 mg/dL (7-17); Calcium 9.2 mg/dL (8.4-10.2); Carbon Dioxide 19 mmol/L (22-32); Chloride 110 mmol/L (98-107); Estimated Glomerular Filt Rate 17 mL/min (>60); Glucose 248 mg/dL (70-99); HEMOLYSIS < 15 (0-50); Potassium 5.6 mmol/L (3.4-5.1); Sodium 137 mmol/L (137-145)
[2024-09-04] MEDS: diphenhydrAMINE 25 MG TABLET 50 MG PO (23:58)
[2024-09-05] VITALS (9 sets, daily range): BP systolic 115–176; BP diastolic 55–92; PULSE 78–90; RESP 12–18; TEMP 36.2–36.8; O2SAT 92–98
[2024-09-05 00:44] LABS: MRSA (Nasal) PCR NOT DETECTED (Not Detect)
[2024-09-05 05:06] LABS: Add Manual Diff / Slide Review NO; Basophils Absolute Auto 0 /uL (0-100); Basophils Percent Auto 0.7 % (0-2); Eosinophils Absolute Auto 300 /uL (0-450); Eosinophils Percent Auto 5.2 % (2-4); Hematocrit 33.4 % (36-46); Hemoglobin 10.7 g/dL (12.0-16.0); Lymphocytes Absolute Auto 1100 /uL (1100-4500); Mean Corpuscular HGB Conc 31.9 % (30-36); Mean Corpuscular Hemoglobin 30.3 PG (26-34); Mean Corpuscular Volume 95.2 fL (80-100); Monocytes Absolute Auto 700 /uL (0-900); Monocytes Percent Auto 11.1 % (3-14); Neutrophils Absolute Auto 4100 /uL (1500-7000); Platelet Count 181 X10^3/uL (150-400); Red Blood Cell Count 3.51 X10^6/uL (4.0-5.2); White Blood Cell Count 6.3 X10^3/uL (4.5-11.0)
[2024-09-05 05:19] LABS: BUN Creatinine Ratio 6.8 (6-22); Blood Urea Nitrogen 25 mg/dL (7-17); Calcium 8.5 mg/dL (8.4-10.2); Carbon Dioxide 17 mmol/L (22-32); Chloride 108 mmol/L (98-107); Estimated Glomerular Filt Rate 16 mL/min (>60); Glucose 336 mg/dL (70-99); HEMOLYSIS < 15 (0-50); Sodium 136 mmol/L (137-145)
[2024-09-05 05:21] LABS: Potassium 6.2 mmol/L (3.4-5.1)
[2024-09-05] MEDS: ONDANSETRON 4 MG/2 ML INJ IV ×3 (05:45→20:43)
--- NOTE | 2024-09-05 06:32 | PC.NURSE ---
Admit/Night Note-Patient brought to ICU room 228 at 2245 sccompsnied by mother. A/Ox4, has artificial Lt eye and totally blind in Rt. SR, initial BP 151/76, afebrile, RA sats 98%, LS CTA, denies pain. 50mg PO Benadryl given for sleep, she was able to rest most of the night. Up to BSC x1 with 1 person and walker, voided 1300ml clear yellow UOP. AM labs reported to [facility] Hospitalist at 0534, K+ 6.2, CBG 357, IV Zofran given for nausea. Other orders received at 0623-waiting for pharmacy to verify meds.
[2024-09-05] MEDS: INSULIN REGULAR 100 UNIT/ML 3 ML VIAL 10 UNIT IV ×2 (06:56→08:27)
[2024-09-05] MEDS: DEXTROSE 50 % IN WATER 25 GM/50 ML SYRINGE IV (06:56)
[2024-09-05] MEDS: SODIUM ZIRCONIUM CYCLOSILICATE 10 GM POWD.PACK PO (06:56)
[2024-09-05] MEDS: CALCIUM GLUCONATE 4.65 MEQ in SODIUM CHLORIDE 0.9% 50 ML 180 MEQ IV (06:57)
--- NOTE | 2024-09-05 08:24 | PC.NURSE ---
0810 - BGC greater than 400. Dr Booker notified. BMP and 10 units IV Insulin ordered
[2024-09-05 08:35] LABS: Blood Urea Nitrogen 21 mg/dL (7-17); Calcium 8.4 mg/dL (8.4-10.2); Carbon Dioxide 13 mmol/L (22-32); Chloride 117 mmol/L (98-107); Estimated Glomerular Filt Rate 24 mL/min (>60); Glucose 329 mg/dL (70-99); HEMOLYSIS 50 (0-50); Potassium 4.5 mmol/L (3.4-5.1); Sodium 137 mmol/L (137-145)
[2024-09-05 08:42] LABS: Ketones (Beta-Hydroxybutyrate) 0.88 mmol/L (<0.27)
[2024-09-05] MEDS: HEPARIN 5,000 UNIT/ML VIAL 5000 UNIT SUBCUT ×2 (09:40→20:36)
[2024-09-05] MEDS: INSULIN LISPRO 100 UNIT/ML 3ML VIAL SUBCUT ×2 (12:26→17:08)
[2024-09-05] MEDS: INSULIN LISPRO 100 UNIT/ML 3ML VIAL 8 UNIT SUBCUT (12:26)
[2024-09-05 15:32] LABS: Blood Urea Nitrogen 27 mg/dL (7-17); Calcium 8.6 mg/dL (8.4-10.2); Carbon Dioxide 19 mmol/L (22-32); Chloride 109 mmol/L (98-107); Estimated Glomerular Filt Rate 15 mL/min (>60); Glucose 204 mg/dL (70-99); HEMOLYSIS < 15 (0-50); Potassium 5.1 mmol/L (3.4-5.1); Sodium 138 mmol/L (137-145)
--- NOTE | 2024-09-05 16:34 | P.PN_ITS ---
Subjective Subjective Date Patient Seen: 09/05/24 Interval history: Chief complaint: Sent to emergency room for hyperkalemia by primary care physician History of present illness: 34 y/o with PMH of IDDM - type 1, CHF, CKD stage 4, diabetic retinopathy with blindness, followed by nephrology in preparation for HD, sent to [place] for hyperkalemia. In the ED she had insulin with glucose, calcium gluconate, Lokelma, bicarbs and Lasix. She feels as usual, otherwise. Without chest pain or pressure, palpitations, worsening weakness or shortness of breath. EKG w/o changes. Treated with calcium gluconate, insulin, glucose, Lokelma. Placed in observation on telemetry monitoring for hyperkalemia Hospital course: 09/05: Patient without significant complaints at this time but having escalation of potassium and labile blood sugars Review of systems: No fevers chills No chest pains palpitations No cough shortness No abdominal pain diarrhea No urinary Physical exam: Chronically ill-appearing female young Cataracts and ocular palsy Heart sounds distant Lung sounds distant No edema Assessment and plan: Hyperkalemia in the setting of very brittle diabetes and progressive chronic kidney disease 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 * Intervening with insulin glucose IV fluids to manage hyperkalemia * Resume subcutaneous insulin * Monitor basic metabolic profile q.4 hours * Established with air crew supervisor and follow up on discharge * Vigilance for signs of exacerbation of CHF DVT prophylaxis with subQ heparin Full code blue 35 minutes spent with patient and on the chart (including review of chart, obtaining history, exam, reviewing outside data, placing orders, documenting exam and treatment plan, and counseling patient) Exam Vital Signs (past 8 hours): - 09/05/24 11:36 09/05/24 16:00 09/05/24 16:00 Temperature 98.3 F Pulse Rate 89 83 82 Respiratory Rate 16 17 16 Blood Pressure 115/55 L 158/84 H 158/84 H Pulse Oximetry 98 94 98 Oxygen Flow Rate 0 Oxygen Delivery Method Room Air Oxygen Flow Rate 0 Objective Labs 09/05/24 04:21 09/05/24 15:12 Labs: Laboratory Results - last 24 hr 09/04/24 09/04/24 09/04/24 19:10 23:10 23:36 WBC 8.2 RBC 3.63 L Hgb 11.0 L Hct 34.8 L MCV 95.8 MCH 30.2 MCHC 31.5 RDW 15.2 H Plt Count 183 Neut % (Auto) 65.7 Lymph % (Auto) 14.6 L [place] % (Auto) 14.1 H Eos % (Auto) 5.1 H Baso % (Auto) 0.5 Neut # (Auto) 5400 Lymph # (Auto) 1200 [place] # (Auto) 1100 H Eos # (Auto) 400 Baso # (Auto) 0 PT 11.6 INR 1.0 APTT 33 Sodium 136 L 137 Potassium 5.9 H 5.6 H Chloride 110 H 110 H Carbon Dioxide 19 L 19 L BUN 23 H 24 H Creatinine 3.45 H 3.51 H Estimated GFR 17 L 17 L BUN/Creatinine Ratio 6.7 6.8 Glucose 199 H 248 H Lactate 1.0 Calcium 8.6 9.2 Magnesium 2.1 Total Bilirubin 0.6 AST 723 H ALT 297 H Alkaline Phosphatase 287 H Total Creatine Kinase 301 H Troponin I < 0.012 NT-Pro-B Natriuret Pep 8980 H Total Protein 6.6 Albumin 3.8 Globulin 2.8 Albumin/Globulin Ratio 1.4 Lipase 40 D Nasal Screen MRSA (PCR) Not detected Ketones 09/05/24 09/05/24 09/05/24 04:21 08:17 15:12 WBC 6.3 RBC 3.51 L Hgb 10.7 L Hct 33.4 L MCV 95.2 MCH 30.3 MCHC 31.9 RDW 15.0 H Plt Count 181 Neut % (Auto) 65.0 Lymph % (Auto) 18.0 L [place] % (Auto) 11.1 Eos % (Auto) 5.2 H Baso % (Auto) 0.7 Neut # (Auto) 4100 Lymph # (Auto) 1100 [place] # (Auto) 700 Eos # (Auto) 300 Baso # (Auto) 0 PT INR APTT Sodium 136 L 137 138 Potassium 6.2 H 4.5 D 5.1 Chloride 108 H 117 H 109 H Carbon Dioxide 17 L 13 L 19 L BUN 25 H 21 H 27 H Creatinine 3.66 H 2.62 H 3.85 H Estimated GFR 16 L 24 L 15 L BUN/Creatinine Ratio 6.8 8.0 7.0 Glucose 336 H 329 H 204 H D Lactate Calcium 8.5 8.4 8.6 Magnesium Total Bilirubin AST ALT Alkaline Phosphatase Total Creatine Kinase Troponin I NT-Pro-B Natriuret Pep Total Protein Albumin Globulin Albumin/Globulin Ratio Lipase Nasal Screen MRSA (PCR) Ketones 0.88 H PFSH Medical History Abnormal liver function tests Noncompliance w/medication treatment due to intermit use of medication Irregular menstrual cycle Migraine headache History of pyelonephritis DKA (diabetic ketoacidoses) Nephrolithiasis Type 1 diabetes mellitus Surgical History Status post cholecystectomy Hx of cataract surgery Hx of local excision of skin lesion [place] teeth extracted Status post laser lithotripsy of ureteral calculus History of ureter stent Family History Father In good health Mother Cardiac disease Social History details: Engaged household members: family Smoking Status: Never smoker alcohol intake: never Assessment & Plan Time-Based Coding :: [TOTAL MINUTES] spent with patient and on the chart (including review of chart, obtaining history, exam, reviewing outside data, placing orders, documenting exam and treatment plan, and counseling patient) on [DATE]. Quality VTE Deep Vein Thrombosis/Pulmonary Embolism Present on Admission: No
[2024-09-05 19:29] LABS: Blood Urea Nitrogen 27 mg/dL (7-17); Calcium 8.6 mg/dL (8.4-10.2); Carbon Dioxide 19 mmol/L (22-32); Chloride 111 mmol/L (98-107); Estimated Glomerular Filt Rate 15 mL/min (>60); Glucose 152 mg/dL (70-99); HEMOLYSIS < 15 (0-50); Sodium 138 mmol/L (137-145)
[2024-09-05] MEDS: diphenhydrAMINE 25 MG TABLET 50 MG PO (20:37)
[2024-09-05] MEDS: INSULIN GLARGINE 100 UNIT/ML 3ML PEN 6 UNIT SUBCUT (20:37)
[2024-09-05] MEDS: METOPROLOL ER 25 MG TABLET 75 MG PO (20:38)
[2024-09-05] MEDS: AMLODIPINE 5 MG TABLET PO (20:39)
[2024-09-06 00:07] LABS: BUN Creatinine Ratio 7.3 (6-22); Blood Urea Nitrogen 27 mg/dL (7-17); Calcium 8.4 mg/dL (8.4-10.2); Carbon Dioxide 18 mmol/L (22-32); Chloride 111 mmol/L (98-107); Estimated Glomerular Filt Rate 16 mL/min (>60); Glucose 204 mg/dL (70-99); HEMOLYSIS < 15 (0-50); Potassium 5.3 mmol/L (3.4-5.1); Sodium 137 mmol/L (137-145)
[2024-09-06 00:23] VITALS: BP 125/76; PULSE 83; RESP 18; O2SAT 93
[2024-09-06 04:00] VITALS: BP 115/67; PULSE 85; RESP 12; O2SAT 97
[2024-09-06] MEDS: ONDANSETRON 4 MG/2 ML INJ IV (04:06)
[2024-09-06 04:07] LABS: BUN Creatinine Ratio 6.8 (6-22); Blood Urea Nitrogen 27 mg/dL (7-17); Calcium 8.3 mg/dL (8.4-10.2); Carbon Dioxide 16 mmol/L (22-32); Chloride 109 mmol/L (98-107); Estimated Glomerular Filt Rate 15 mL/min (>60); Glucose 315 mg/dL (70-99); HEMOLYSIS < 15 (0-50); Sodium 135 mmol/L (137-145)
[2024-09-06 04:10] LABS: Potassium 5.9 mmol/L (3.4-5.1)
[2024-09-06] MEDS: INSULIN REGULAR 100 UNIT/ML 3 ML VIAL 8 UNIT IV (04:55)
[2024-09-06 07:05] LABS: Blood Urea Nitrogen 29 mg/dL (7-17); Calcium 8.2 mg/dL (8.4-10.2); Carbon Dioxide 14 mmol/L (22-32); Chloride 111 mmol/L (98-107); Estimated Glomerular Filt Rate 14 mL/min (>60); Glucose 288 mg/dL (70-99); HEMOLYSIS < 15 (0-50); Sodium 137 mmol/L (137-145)
[2024-09-06 07:36] LABS: Potassium 5.6 mmol/L (3.4-5.1)
[2024-09-06 08:00] VITALS: BP 120/58; PULSE 85; RESP 15; TEMP 36.8; O2SAT 96
[2024-09-06] MEDS: INSULIN LISPRO 100 UNIT/ML 3ML VIAL SUBCUT ×2 (08:22→12:08)
[2024-09-06] MEDS: SODIUM CHLORIDE 0.9% 1,000 ML 250 ML IV (09:51)
[2024-09-06] MEDS: INSULIN REGULAR 100 UNIT/ML 3 ML VIAL IV (09:51)
[2024-09-06] MEDS: SODIUM ZIRCONIUM CYCLOSILICATE 10 GM POWD.PACK PO (10:40)
[2024-09-06 12:00] VITALS: BP 127/73; PULSE 84; RESP 14; TEMP 36.6; O2SAT 96
[2024-09-06] MEDS: INSULIN LISPRO 100 UNIT/ML 3ML VIAL 14 UNIT SUBCUT (12:10)
[2024-09-06 14:42] LABS: BUN Creatinine Ratio 7.2 (6-22); Blood Urea Nitrogen 30 mg/dL (7-17); Calcium 8.1 mg/dL (8.4-10.2); Carbon Dioxide 17 mmol/L (22-32); Chloride 113 mmol/L (98-107); Estimated Glomerular Filt Rate 14 mL/min (>60); Glucose 110 mg/dL (70-99); HEMOLYSIS < 15 (0-50); Potassium 4.8 mmol/L (3.4-5.1); Sodium 139 mmol/L (137-145)
--- NOTE | 2024-09-06 14:57 | CM.DANOTE ---
Initial DCP Assessment Note Pt is a 34 yo female, resident of [place], sent by PCP for hypokalemia. Patient well known to his institution; PMH includes IDDM - type 1, CHF, CKD stage 4, diabetic retinopathy with blindness, followed by nephrology in preparation for HD. PCP: Maria Ines Limon ([facility]) Payer: Aleksander LÓPEZ Reviewed chart, pt discussed in multidisciplinary rounds this morning. Patient is eager to return home and will likely be medically cleared to do so this afternoon. Patient lives with mom and step dad in [place], patient has functionally declined, with diabetic retinopathy and associated blindness. Mom is patient's primary cg, not at bedside; left the senior resource guide with number for [facility] along with information on [facility], which is [facility] resource hub. If patient is started on outpatient dialysis, she will have an assigned manager of case management at the dialysis center that will likely help mom with resource referral. Patient is not likely to qualify for social security disability (no work credits ?) but may qualify for SSI if she does not already receive these benefits. Plan: Discharge home w.parents, resumption of close outpatient follow up. Transport via [facility]. RAYMOND Perea Discharge Planning/Care Management CM Discharge Assessment Start: 09/04/24 22:21 Freq: Status: Active Protocol: Document 09/06/24 14:53 ANGELA (Rec: 09/06/24 14:57 ANGELA [id number]) Discharge Planning Assessment Assigned [employer] RAYMOND Barbour DPOA/Assigned Designee Name brenda Gonzalez Contact Information [phone] Advance Directives? Yes Advance Directives on File Yes History Provided By Patient,Parents,Medical Record Has Patient been admitted in last 30 No days? Comment INPT 07/14 ER 5/6 ER 5/6 Prior Living Arrangements House Household Members family Type of transporation used prior to Relies on Others admit Independent with ADL's No Is patient alert and oriented? Yes Needs Assistance With Meal Prep,Managing Medications ,Home Chores / Shopping Barriers to Discharge No Comment PCP is Dr. Limon at [facility]# . Discharge Plan Home Transportation Arrangement Family Additional Comment Community resources provided at [place].
--- NOTE | 2024-09-06 15:16 | PM.DS.1 ---
History of Present Illness History of Present Illness Date Patient Seen: 09/06/24 Chief complaint: Abnormal Labs Sent from PCP Narrative: Chief complaint: Sent to emergency room for hyperkalemia by primary care physician History of present illness: 34 y/o with PMH of IDDM - type 1, CHF, CKD stage 4, diabetic retinopathy with blindness, followed by nephrology in preparation for HD, sent to [place] for hyperkalemia. In the ED she had insulin with glucose, calcium gluconate, Lokelma, bicarbs and Lasix. She feels as usual, otherwise. Without chest pain or pressure, palpitations, worsening weakness or shortness of breath. EKG w/o changes. Treated with calcium gluconate, insulin, glucose, Lokelma. Placed in observation on telemetry monitoring for hyperkalemia Hospital course: 09/05: Patient without significant complaints at this time but having escalation of potassium and labile blood sugars 09/06: Potassium 5.6 in the morning given some bolus of IV fluids and Lokelma repeat 4.8 patient discharged home Review of systems: No fevers chills No chest pains palpitations No cough shortness No abdominal pain diarrhea No urinary Physical exam: Chronically ill-appearing female young Cataracts and ocular palsy Heart sounds distant Lung sounds distant No edema Assessment and plan: Hyperkalemia in the setting of very brittle diabetes and progressive chronic kidney disease 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 discharged home Discharge to home Corrected by Intervening with insulin glucose IV fluids to manage hyperkalemia Resume subcutaneous insulin at home Follow-up with nephrology Educated extensively and given information for low-potassium diet 35 minutes spent with patient and on the chart (including review of chart, obtaining history, exam, reviewing outside data, placing orders, documenting exam and treatment plan, and counseling patient) Discharge Providers Provider Date of admission: 09/04/24 21:22 Discharge Date: 09/06/24 Primary care physician: Maria Ines Limon DO Consults: 09/04/24 20:19 Consult to [employer] - Cattle [employer]ocker Stat Comment: Cattle [employer]ocker Consult needed for:: Other reason (Comment) Comment: Brittney Stout has had to quit her 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 Mom is tired and needs help at home with taking care of the pt. Argelia would also like to know if there are resources to help her financially with caring for the pt. 09/04/24 23:06 Consult to Dietitian, Adult Routine Comment: Reason For Exam: decreased appetite Discharge provider: Nayan Booker MD Exam Vital Signs (past 8 hours): - 09/06/24 08:00 09/06/24 12:00 Temperature 98.3 F 97.9 F Pulse Rate 85 84 Respiratory Rate 15 14 Blood Pressure 120/58 L 127/73 Pulse Oximetry 96 96 Oxygen Delivery Method Room Air Oxygen Flow Rate 0 Objective Labs 09/05/24 04:21 09/06/24 14:23 Labs: Laboratory Results - last 24 hr 09/05/24 09/05/24 09/05/24 15:12 19:02 23:02 Sodium 138 138 137 Potassium 5.1 5.0 5.3 H Chloride 109 H 111 H 111 H Carbon Dioxide 19 L 19 L 18 L BUN 27 H 27 H 27 H Creatinine 3.85 H 3.88 H 3.71 H Estimated GFR 15 L 15 L 16 L BUN/Creatinine Ratio 7.0 7.0 7.3 Glucose 204 H D 152 H 204 H Calcium 8.6 8.6 8.4 09/06/24 09/06/24 09/06/24 03:12 05:18 14:23 Sodium 135 L 137 139 Potassium 5.9 H 5.6 H 4.8 Chloride 109 H 111 H 113 H Carbon Dioxide 16 L 14 L 17 L BUN 27 H 29 H 30 H Creatinine 3.96 H 4.17 H 4.18 H Estimated GFR 15 L 14 L 14 L BUN/Creatinine Ratio 6.8 7.0 7.2 Glucose 315 H D 288 H 110 H D Calcium 8.3 L 8.2 L 8.1 L PFSH Medical History Abnormal liver function tests Noncompliance w/medication treatment due to intermit use of medication Irregular menstrual cycle Migraine headache History of pyelonephritis DKA (diabetic ketoacidoses) Nephrolithiasis Type 1 diabetes mellitus Surgical History Status post cholecystectomy Hx of cataract surgery Hx of local excision of skin lesion [place] teeth extracted Status post laser lithotripsy of ureteral calculus History of ureter stent Family History Father In good health Mother Cardiac disease Social History details: Engaged household members: family Smoking Status: Never smoker alcohol intake: never Discharge Plan Discharge Plan Patient Disposition: Home Discharge orders & Medications Prescriptions: New insulin lispro [Admelog U-100 Insulin lispro] 100 unit/mL Solution 14 unit SUBCUT ACHS Qty: 6 0RF insulin degludec [Tresiba FlexTouch U-100] 100 unit/mL (3 mL) insulin pen 15 unit SUBCUT BID Qty: 15 0RF Continued glucose 4 gram tablet,chewable 4 gram PO Q15M PRN (Reason: hypoglycemia) Qty: 30 0RF Rx Instructions: until response metoprolol succinate 50 mg tablet extended release 24 hr 75 mg PO BEDTIME rosuvastatin 20 mg tablet 40 mg PO BEDTIME ondansetron 4 mg tablet,disintegrating 4 mg PO Q6H PRN (Reason: nausea and vomiting) Qty: 20 0RF diphenhydramine HCl 50 mg Capsule 50 mg PO BEDTIME PRN (Reason: Sleep) Rx Instructions: for itching and sleep insulin degludec [Tresiba FlexTouch U-200] 200 unit/mL (3 mL) insulin pen See Rx Instructions .ROUTE .COMPLEX Rx Instructions: 20u in the am 6units at bedtime (DME) Dexcom G7 Sensor Device MISCELLANEOUS Q10D amlodipine 5 mg tablet 5 mg PO ONCE PM Discontinued Glucagon Emergency Kit (human) 1 mg recon soln 1 mg subcut DIRECTED insulin aspart U-100 [Novolog U-100 Insulin aspart] 100 unit/mL solution 100 unit DAILY Follow up/Referrals: Maria Ines Limon DO [Primary Care Provider] - Diet/Activity/Treatments Diet: Low-protein/Renal Diet comment: 2 g potassium restriction Visit Report/Discharge Packet Instructions: Low-Potassium Diet Stand Alone Forms: Patient Portal/API Discharge Data Primary Care Provider: Maria Ines Limon Attending Provider: Irwin Mack Admbrunilda Date/Time: 09/04/24 21:22 Quality VTE Deep Vein Thrombosis/Pulmonary Embolism Present on Admission: No
== END 2024-09-06 16:05 | disposition home or self-care (01) | DRG 425 ==
LOC: ED 20:17 → AC 21:30 → ICU 22:27 → AC 09-07 07:51
PROVIDERS: Internal Medicine; Admitting Provider Internal Medicine; Emergency Provider Family Medicine; PCP Student in an Organized Health Care Education/Training Program; Referring Provider Family Medicine; Visit Provider Internal Medicine
DX: E87.5 Hyperkalemia (principal); E10.22 Type 1 diabetes mellitus with diabetic chronic kidney disease; E10.319 Type 1 diabetes mellitus with unspecified diabetic retinopathy without macular edema; N18.4 Chronic kidney disease, stage 4 (severe); I50.40 Unspecified combined systolic (congestive) and diastolic (congestive) heart failure; I13.0 Hypertensive heart and chronic kidney disease with heart failure and stage 1 through stage 4 chronic kidney disease, or unspecified chronic kidney disease; H54.7 Unspecified visual loss
CPT/HCPCS: 36415; 80048; 80053; 82009; 82550; 82962; 83605; 83690; 83735; 83880; 84484; 85025; 85610; 85730; 87797; 93005; 96365; 96375; 99285; G0378; J0612; J1644; J1815; J1938; J2405

== ENCOUNTER 2024-09-10 05:07 | Emergency (ER) | payer OTHER, SELFPAY ==
[2024-09-04 22:52] VITALS: BMI 29.5
[2024-09-10] VITALS (78 sets, daily range): BP systolic 92–146; BP diastolic 49–74; PULSE 78–97; RESP 7–30; TEMP 37.6; O2SAT 84–98
--- NOTE | 2024-09-10 05:14 | DI.RAD.S_ITS ---
PROCEDURE: XR CHEST 1V INDICATIONS: leg cramps TECHNIQUE: One view of the chest was acquired. COMPARISON: [facility], CR, XR CHEST 1V, 08/25/2024, 22:01. FINDINGS: Surgical changes and devices: None. Lungs and pleura: Resolved appearance of right basilar opacities. Mediastinum: Mediastinal contours appear normal. Heart size is normal. Bones and chest wall: No suspicious bony lesions. Overlying soft tissues appear unremarkable. IMPRESSION: No acute pulmonary process. Dictated by: Alejandra Sanchez M.D. on 09/10/2024 at 9:09 Approved by: Alejandra Sanchez M.D. on 09/10/2024 at 9:10
--- NOTE | 2024-09-10 05:16 | ED_ITS ---
HPI - Extremity Problem <Carolyn Barker, DO - Last Filed: 09/11/24 03:38> General Chief complaint: Extremity Problem,Nontraumatic Stated complaint: leg pain Time Seen by Provider: 09/10/24 05:09 Source: patient, RN notes reviewed and old records reviewed Mode of arrival: EMS Limitations: no limitations History of Present Illness HPI Narrative: 34-year-old female history of insulin-dependent diabetes, multiple complications including diabetic retinopathy blindness, CKD stage 4 follows with [facility], CHF, hypertension presents complaint of cramping and discomfort in bilateral legs and lower back discomfort. No reported fevers but patient states she feels cold. No cough cold or congestion. No chest pain or pressure, no shortness of breath. Patient feels nauseated but denies any vomiting. No diarrhea or constipation. No dysuria urgency or frequency. Patient states could you can see she was unsure if her legs has been swollen lately but does not appreciate the sensation of swelling. Patient was recently hospitalized for over a through September 06 for hyperkalemia. Patient states no new changes to her medications after discharge. Patient is DNR/DNI. Related Data Home Medications Medication Instructions Recorded Confirmed diphenhydramine HCl 50 mg capsule 50 mg PO BEDTIME PRN Sleep 09/29/20 09/10/24 insulin degludec 200 unit/mL (3 See Rx Instructions .Route .COMPLEX 11/13/21 07/02/22 mL) subcutaneous pen (Tresiba FlexTouch U-200 insulin) metoprolol succinate 50 mg 75 mg PO BEDTIME 10/20/23 09/10/24 tablet,extended release 24 hr rosuvastatin 20 mg tablet 40 mg PO BEDTIME 10/20/23 09/10/24 blood-glucose sensor (Dexcom G7 07/19/24 09/05/24 Sensor device) amlodipine 5 mg tablet 5 mg PO ONCE PM 09/04/24 09/10/24 Previous Rx's Medication Instructions Recorded glucose 4 gram chewable tablet 4 gram PO Q15M PRN hypoglycemia 12/12/18 #30 tabs ondansetron 4 mg disintegrating 4 mg PO Q6H PRN nausea and 08/25/24 tablet vomiting #20 tabs insulin degludec 100 unit/mL (3 15 unit (0.15 mL) SUBCUT BID #15 mL 09/06/24 mL) subcutaneous pen (Tresiba FlexTouch U-100 insulin) insulin lispro 100 unit/mL 14 unit (0.14 mL) SUBCUT ACHS #6 mL 09/06/24 subcutaneous solution (Admelog U-100 Insulin lispro) Allergies Allergy/AdvReac Type Severity Reaction Status Date / Time abdalla [ABDALLA] Allergy Intermediate Hives, Verified 09/04/24 18:11 pruritus iodine [IODINE] Allergy Intermediate rash, itchy Verified 09/04/24 18:11 morphine Allergy Intermediate Difficulty Verified 09/04/24 18:11 Breathing shellfish derived Allergy Intermediate rash Verified 09/04/24 18:11 [SHELLFISH DERIVED] adhesive [ADHESIVE] Allergy Unknown tape Verified 09/04/24 18:11 latex [LATEX] Allergy Unknown Hives Verified 09/04/24 18:11 amoxicillin [From Augmentin] AdvReac Severe Abnormal Verified 09/04/24 18:11 LFTs, N/V clavulanic acid AdvReac Severe Abnormal Verified 09/04/24 18:11 [From Augmentin] LFTs, N/V fentanyl AdvReac Severe other Verified 09/04/24 18:11 Review of Systems <Carolyn Barker DO - Last Filed: 09/11/24 03:38> Review of Systems ROS Unobtainable: All systems reviewed & are unremarkable except as noted in HPI and below Patient History <Carolyn Barker DO - Last Filed: 09/11/24 03:38> Medical History Abnormal liver function tests Noncompliance w/medication treatment due to intermit use of medication Irregular menstrual cycle Migraine headache History of pyelonephritis DKA (diabetic ketoacidoses) Nephrolithiasis Type 1 diabetes mellitus Surgical History Status post cholecystectomy Hx of cataract surgery Hx of local excision of skin lesion [place] teeth extracted Status post laser lithotripsy of ureteral calculus History of ureter stent Family History Father In good health Mother Cardiac disease Social History details: Engaged household members: family alcohol intake: never alcohol intake frequency: holidays/special occasions only Exam <Carolyn Barker DO - Last Filed: 09/11/24 03:38> Narrative Exam Narrative: GENERAL: Alert and oriented x three, female in moderate distress HEENT: Head normocephalic, atraumatic, EOMI, pupils reactive, face symmetric, moist mucous membranes NECK: Supple, full range of motion CARDIOVASCULAR: Regular rate and rhythm without murmurs, rubs or gallops.? Bilateral lower extremity edema. RESPIRATORY: Breath sounds equal bilaterally, no wheezes rales or rhonchi.? No tachypnea accessory muscle use. ABDOMEN: Soft, nontender.? Nondistended.? Normoactive bowel sounds all 4 quadrants.? No guarding or rebound, rigidity, no mass : No CVA tenderness EXTREMITIES: Normal range of motion.? Cap refill less than 2 seconds bilateral lower extremities.? 2+ pulses bilaterally.? Neurovascularly intact NEUROLOGICAL: Cranial nerves II through XII grossly intact.? Moving all extremities SKIN: Warm, dry, no petechiae, no rashes or lesions. Initial Vital Signs Initial Vital Signs: Vital Signs Temperature 99.6 F 09/10/24 05:09 Pulse Rate 97 H 09/10/24 05:09 Respiratory Rate 18 09/10/24 05:09 Blood Pressure 125/69 09/10/24 05:09 Pulse Oximetry 84 L 09/10/24 05:09 Oxygen Delivery Method Room Air 09/10/24 05:09 <Roshan Mcgowan MD - Last Filed: 09/10/24 19:06> Initial Vital Signs Initial Vital Signs: Vital Signs Temperature 99.6 F 09/10/24 05:09 Pulse Rate 97 H 09/10/24 05:09 Respiratory Rate 18 09/10/24 05:09 Blood Pressure 125/69 09/10/24 05:09 Pulse Oximetry 84 L 09/10/24 05:09 Oxygen Delivery Method Room Air 09/10/24 05:09 Course <Carolyn Barker DO - Last Filed: 09/11/24 03:38> Orders Ordered: Discontinued Medications Hydromorphone HCl (Hydromorphone 0.5 Mg Inj) 0.5 mg IV NOW ONE Stop: 09/10/24 07:38 Last Admin: 09/10/24 07:47 Dose: 0.5 mg Documented By: KEN Hydromorphone HCl (Hydromorphone 0.5 Mg Inj) 0.5 mg IV NOW ONE Stop: 09/10/24 11:28 Last Admin: 09/10/24 11:37 Dose: 0.5 mg Documented By: JAVAN Hydromorphone HCl (Hydromorphone 0.5 Mg Inj) 0.5 mg IV NOW ONE Stop: 09/10/24 14:30 Last Admin: 09/10/24 14:39 Dose: 0.5 mg Documented By: JAVAN Sodium Chloride (Normal Saline 0.9%) 500 mls @ 1,000 mls/hr IV BOLUS ONE Stop: 09/10/24 05:43 Last Infusion: 09/10/24 06:43 Dose: Infused Documented By: Admin: 09/10/24 06:08 Dose: 1,000 mls/hr Documented By: ARTIE Furosemide 80 mg/ Sodium (Chloride) 58 mls @ 116 mls/hr IV NOW ONE Stop: 09/10/24 08:04 Last Infusion: 09/10/24 09:30 Dose: Infused Documented By: Admin: 09/10/24 08:35 Dose: 116 mls/hr Documented By: KEN Vital Signs Vital signs: Vital Signs - 8 hr 09/10/24 11:10 09/10/24 11:10 09/10/24 11:15 Pulse Rate 79 82 Respiratory Rate 11 L 15 Blood Pressure 100/56 L Pulse Oximetry 95 96 Oxygen Delivery Method Nasal Cannula Nasal Cannula Oxygen Flow Rate 2 2 09/10/24 11:15 09/10/24 11:20 09/10/24 11:20 Pulse Rate 84 Respiratory Rate 15 Blood Pressure 120/63 128/65 Pulse Oximetry 97 Oxygen Delivery Method Nasal Cannula Oxygen Flow Rate 2 09/10/24 11:25 09/10/24 11:25 09/10/24 11:30 Pulse Rate 85 86 Respiratory Rate 18 17 Blood Pressure 131/68 Pulse Oximetry 97 97 Oxygen Delivery Method Nasal Cannula Nasal Cannula Oxygen Flow Rate 2 2 09/10/24 11:30 09/10/24 11:35 09/10/24 11:35 Pulse Rate 86 Respiratory Rate 8 L Blood Pressure 139/68 142/72 H Pulse Oximetry 96 Oxygen Delivery Method Nasal Cannula Oxygen Flow Rate 2 09/10/24 11:40 09/10/24 11:40 09/10/24 11:45 Pulse Rate 84 Respiratory Rate 7 L Blood Pressure 134/67 136/69 Pulse Oximetry 96 Oxygen Delivery Method Nasal Cannula Oxygen Flow Rate 2 09/10/24 11:45 09/10/24 11:50 09/10/24 11:50 Pulse Rate 84 84 Respiratory Rate 11 L 15 Blood Pressure 133/66 Pulse Oximetry 97 97 Oxygen Delivery Method Nasal Cannula Nasal Cannula Oxygen Flow Rate 2 2 09/10/24 11:55 09/10/24 11:55 09/10/24 12:00 Pulse Rate 84 82 Respiratory Rate 15 11 L Blood Pressure 115/58 L Pulse Oximetry 91 96 Oxygen Delivery Method Nasal Cannula Nasal Cannula Oxygen Flow Rate 2 2 09/10/24 12:00 09/10/24 12:05 09/10/24 12:05 Pulse Rate 82 Respiratory Rate 10 L Blood Pressure 117/56 L 114/55 L Pulse Oximetry 96 Oxygen Delivery Method Nasal Cannula Oxygen Flow Rate 2 09/10/24 12:10 09/10/24 12:10 09/10/24 12:15 Pulse Rate 81 Respiratory Rate 9 L Blood Pressure 114/56 L 111/59 L Pulse Oximetry 96 Oxygen Delivery Method Nasal Cannula Oxygen Flow Rate 2 09/10/24 12:15 09/10/24 12:20 09/10/24 12:20 Pulse Rate 80 80 Respiratory Rate 9 L 14 Blood Pressure 105/56 L Pulse Oximetry 96 96 Oxygen Delivery Method Nasal Cannula Nasal Cannula Oxygen Flow Rate 2 2 09/10/24 12:25 09/10/24 12:25 09/10/24 12:30 Pulse Rate 80 81 Respiratory Rate 9 L 14 Blood Pressure 109/56 L Pulse Oximetry 97 98 Oxygen Delivery Method Nasal Cannula Nasal Cannula Oxygen Flow Rate 2 09/10/24 12:30 09/10/24 12:35 09/10/24 12:35 Pulse Rate 83 Respiratory Rate 11 L Blood Pressure 121/62 126/61 Pulse Oximetry 98 Oxygen Delivery Method Nasal Cannula Oxygen Flow Rate 2 09/10/24 12:40 09/10/24 12:40 09/10/24 12:45 Pulse Rate 82 80 Respiratory Rate 9 L 10 L Blood Pressure 120/57 L Pulse Oximetry 95 97 Oxygen Delivery Method Nasal Cannula Nasal Cannula Oxygen Flow Rate 2 2 09/10/24 12:45 09/10/24 12:50 09/10/24 12:50 Pulse Rate 79 Respiratory Rate 8 L Blood Pressure 116/57 L 113/56 L Pulse Oximetry 96 Oxygen Delivery Method Nasal Cannula Oxygen Flow Rate 2 09/10/24 12:55 09/10/24 12:55 09/10/24 13:00 Pulse Rate 79 Respiratory Rate 8 L Blood Pressure 115/66 115/62 Pulse Oximetry 96 Oxygen Delivery Method Nasal Cannula Oxygen Flow Rate 2 09/10/24 13:00 09/10/24 13:05 09/10/24 13:05 Pulse Rate 78 79 Respiratory Rate 8 L 8 L Blood Pressure 110/58 L Pulse Oximetry 97 97 Oxygen Delivery Method Nasal Cannula Nasal Cannula Oxygen Flow Rate 2 2 09/10/24 13:10 09/10/24 13:10 09/10/24 13:15 Pulse Rate 78 82 Respiratory Rate 10 L 11 L Blood Pressure 109/57 L Pulse Oximetry 97 98 Oxygen Delivery Method Nasal Cannula Nasal Cannula Oxygen Flow Rate 2 2 09/10/24 13:15 09/10/24 13:20 09/10/24 13:20 Pulse Rate 82 Respiratory Rate 9 L Blood Pressure 125/66 123/63 Pulse Oximetry 97 Oxygen Delivery Method Nasal Cannula Oxygen Flow Rate 2 09/10/24 13:25 09/10/24 13:25 09/10/24 13:30 Pulse Rate 81 Respiratory Rate 12 Blood Pressure 121/68 132/71 Pulse Oximetry 97 Oxygen Delivery Method Oxygen Flow Rate 09/10/24 13:30 09/10/24 13:35 09/10/24 13:35 Pulse Rate 83 83 Respiratory Rate 13 Blood Pressure 137/74 Pulse Oximetry 97 97 Oxygen Delivery Method Oxygen Flow Rate 09/10/24 13:40 09/10/24 13:40 09/10/24 13:45 Pulse Rate 82 Respiratory Rate 12 Blood Pressure 139/73 143/68 H Pulse Oximetry 97 Oxygen Delivery Method Oxygen Flow Rate 09/10/24 13:45 09/10/24 13:50 09/10/24 13:50 Pulse Rate 82 83 Respiratory Rate 14 14 Blood Pressure 146/70 H Pulse Oximetry 97 96 Oxygen Delivery Method Oxygen Flow Rate 09/10/24 13:55 09/10/24 13:55 09/10/24 14:00 Pulse Rate 84 83 Respiratory Rate 18 12 Blood Pressure 143/70 H Pulse Oximetry 97 96 Oxygen Delivery Method Oxygen Flow Rate 09/10/24 14:00 09/10/24 14:05 09/10/24 14:05 Pulse Rate 82 Respiratory Rate 13 Blood Pressure 141/71 H 123/60 Pulse Oximetry 96 Oxygen Delivery Method Oxygen Flow Rate 09/10/24 14:10 09/10/24 14:10 09/10/24 14:15 Pulse Rate 81 82 Respiratory Rate 10 L 9 L Blood Pressure 119/59 L Pulse Oximetry 96 96 Oxygen Delivery Method Oxygen Flow Rate 09/10/24 14:15 09/10/24 14:20 09/10/24 14:20 Pulse Rate 82 Respiratory Rate 17 Blood Pressure 130/63 127/64 Pulse Oximetry 96 Oxygen Delivery Method Nasal Cannula Oxygen Flow Rate 2 09/10/24 14:38 Pulse Rate 84 Respiratory Rate Blood Pressure Pulse Oximetry 98 Oxygen Delivery Method Oxygen Flow Rate <Roshan Mcgowan MD - Last Filed: 09/10/24 19:06> Orders Ordered: Discontinued Medications Hydromorphone HCl (Hydromorphone 0.5 Mg Inj) 0.5 mg IV NOW ONE Stop: 09/10/24 07:38 Last Admin: 09/10/24 07:47 Dose: 0.5 mg Documented By: KEN Hydromorphone HCl (Hydromorphone 0.5 Mg Inj) 0.5 mg IV NOW ONE Stop: 09/10/24 11:28 Last Admin: 09/10/24 11:37 Dose: 0.5 mg Documented By: JAVAN Hydromorphone HCl (Hydromorphone 0.5 Mg Inj) 0.5 mg IV NOW ONE Stop: 09/10/24 14:30 Last Admin: 09/10/24 14:39 Dose: 0.5 mg Documented By: JAVAN Sodium Chloride (Normal Saline 0.9%) 500 mls @ 1,000 mls/hr IV BOLUS ONE Stop: 09/10/24 05:43 Last Infusion: 09/10/24 06:43 Dose: Infused Documented By: Admin: 09/10/24 06:08 Dose: 1,000 mls/hr Documented By: ARTIE Furosemide 80 mg/ Sodium (Chloride) 58 mls @ 116 mls/hr IV NOW ONE Stop: 09/10/24 08:04 Last Infusion: 09/10/24 09:30 Dose: Infused Documented By: Admin: 09/10/24 08:35 Dose: 116 mls/hr Documented By: KEN Vital Signs Vital signs: Vital Signs - 8 hr 09/10/24 11:10 09/10/24 11:10 09/10/24 11:15 Pulse Rate 79 82 Respiratory Rate 11 L 15 Blood Pressure 100/56 L Pulse Oximetry 95 96 Oxygen Delivery Method Nasal Cannula Nasal Cannula Oxygen Flow Rate 2 2 09/10/24 11:15 09/10/24 11:20 09/10/24 11:20 Pulse Rate 84 Respiratory Rate 15 Blood Pressure 120/63 128/65 Pulse Oximetry 97 Oxygen Delivery Method Nasal Cannula Oxygen Flow Rate 2 09/10/24 11:25 09/10/24 11:25 09/10/24 11:30 Pulse Rate 85 86 Respiratory Rate 18 17 Blood Pressure 131/68 Pulse Oximetry 97 97 Oxygen Delivery Method Nasal Cannula Nasal Cannula Oxygen Flow Rate 2 2 09/10/24 11:30 09/10/24 11:35 09/10/24 11:35 Pulse Rate 86 Respiratory Rate 8 L Blood Pressure 139/68 142/72 H Pulse Oximetry 96 Oxygen Delivery Method Nasal Cannula Oxygen Flow Rate 2 09/10/24 11:40 09/10/24 11:40 09/10/24 11:45 Pulse Rate 84 Respiratory Rate 7 L Blood Pressure 134/67 136/69 Pulse Oximetry 96 Oxygen Delivery Method Nasal Cannula Oxygen Flow Rate 2 09/10/24 11:45 09/10/24 11:50 09/10/24 11:50 Pulse Rate 84 84 Respiratory Rate 11 L 15 Blood Pressure 133/66 Pulse Oximetry 97 97 Oxygen Delivery Method Nasal Cannula Nasal Cannula Oxygen Flow Rate 2 2 09/10/24 11:55 09/10/24 11:55 09/10/24 12:00 Pulse Rate 84 82 Respiratory Rate 15 11 L Blood Pressure 115/58 L Pulse Oximetry 91 96 Oxygen Delivery Method Nasal Cannula Nasal Cannula Oxygen Flow Rate 2 2 09/10/24 12:00 09/10/24 12:05 09/10/24 12:05 Pulse Rate 82 Respiratory Rate 10 L Blood Pressure 117/56 L 114/55 L Pulse Oximetry 96 Oxygen Delivery Method Nasal Cannula Oxygen Flow Rate 2 09/10/24 12:10 09/10/24 12:10 09/10/24 12:15 Pulse Rate 81 Respiratory Rate 9 L Blood Pressure 114/56 L 111/59 L Pulse Oximetry 96 Oxygen Delivery Method Nasal Cannula Oxygen Flow Rate 2 09/10/24 12:15 09/10/24 12:20 09/10/24 12:20 Pulse Rate 80 80 Respiratory Rate 9 L 14 Blood Pressure 105/56 L Pulse Oximetry 96 96 Oxygen Delivery Method Nasal Cannula Nasal Cannula Oxygen Flow Rate 2 2 09/10/24 12:25 09/10/24 12:25 09/10/24 12:30 Pulse Rate 80 81 Respiratory Rate 9 L 14 Blood Pressure 109/56 L Pulse Oximetry 97 98 Oxygen Delivery Method Nasal Cannula Nasal Cannula Oxygen Flow Rate 2 09/10/24 12:30 09/10/24 12:35 09/10/24 12:35 Pulse Rate 83 Respiratory Rate 11 L Blood Pressure 121/62 126/61 Pulse Oximetry 98 Oxygen Delivery Method Nasal Cannula Oxygen Flow Rate 2 09/10/24 12:40 09/10/24 12:40 09/10/24 12:45 Pulse Rate 82 80 Respiratory Rate 9 L 10 L Blood Pressure 120/57 L Pulse Oximetry 95 97 Oxygen Delivery Method Nasal Cannula Nasal Cannula Oxygen Flow Rate 2 2 09/10/24 12:45 09/10/24 12:50 09/10/24 12:50 Pulse Rate 79 Respiratory Rate 8 L Blood Pressure 116/57 L 113/56 L Pulse Oximetry 96 Oxygen Delivery Method Nasal Cannula Oxygen Flow Rate 2 09/10/24 12:55 09/10/24 12:55 09/10/24 13:00 Pulse Rate 79 Respiratory Rate 8 L Blood Pressure 115/66 115/62 Pulse Oximetry 96 Oxygen Delivery Method Nasal Cannula Oxygen Flow Rate 2 09/10/24 13:00 09/10/24 13:05 09/10/24 13:05 Pulse Rate 78 79 Respiratory Rate 8 L 8 L Blood Pressure 110/58 L Pulse Oximetry 97 97 Oxygen Delivery Method Nasal Cannula Nasal Cannula Oxygen Flow Rate 2 2 09/10/24 13:10 09/10/24 13:10 09/10/24 13:15 Pulse Rate 78 82 Respiratory Rate 10 L 11 L Blood Pressure 109/57 L Pulse Oximetry 97 98 Oxygen Delivery Method Nasal Cannula Nasal Cannula Oxygen Flow Rate 2 2 09/10/24 13:15 09/10/24 13:20 09/10/24 13:20 Pulse Rate 82 Respiratory Rate 9 L Blood Pressure 125/66 123/63 Pulse Oximetry 97 Oxygen Delivery Method Nasal Cannula Oxygen Flow Rate 2 09/10/24 13:25 09/10/24 13:25 09/10/24 13:30 Pulse Rate 81 Respiratory Rate 12 Blood Pressure 121/68 132/71 Pulse Oximetry 97 Oxygen Delivery Method Oxygen Flow Rate 09/10/24 13:30 09/10/24 13:35 09/10/24 13:35 Pulse Rate 83 83 Respiratory Rate 13 Blood Pressure 137/74 Pulse Oximetry 97 97 Oxygen Delivery Method Oxygen Flow Rate 09/10/24 13:40 09/10/24 13:40 09/10/24 13:45 Pulse Rate 82 Respiratory Rate 12 Blood Pressure 139/73 143/68 H Pulse Oximetry 97 Oxygen Delivery Method Oxygen Flow Rate 09/10/24 13:45 09/10/24 13:50 09/10/24 13:50 Pulse Rate 82 83 Respiratory Rate 14 14 Blood Pressure 146/70 H Pulse Oximetry 97 96 Oxygen Delivery Method Oxygen Flow Rate 09/10/24 13:55 09/10/24 13:55 09/10/24 14:00 Pulse Rate 84 83 Respiratory Rate 18 12 Blood Pressure 143/70 H Pulse Oximetry 97 96 Oxygen Delivery Method Oxygen Flow Rate 09/10/24 14:00 09/10/24 14:05 09/10/24 14:05 Pulse Rate 82 Respiratory Rate 13 Blood Pressure 141/71 H 123/60 Pulse Oximetry 96 Oxygen Delivery Method Oxygen Flow Rate 09/10/24 14:10 09/10/24 14:10 09/10/24 14:15 Pulse Rate 81 82 Respiratory Rate 10 L 9 L Blood Pressure 119/59 L Pulse Oximetry 96 96 Oxygen Delivery Method Oxygen Flow Rate 09/10/24 14:15 09/10/24 14:20 09/10/24 14:20 Pulse Rate 82 Respiratory Rate 17 Blood Pressure 130/63 127/64 Pulse Oximetry 96 Oxygen Delivery Method Nasal Cannula Oxygen Flow Rate 2 09/10/24 14:38 Pulse Rate 84 Respiratory Rate Blood Pressure Pulse Oximetry 98 Oxygen Delivery Method Oxygen Flow Rate MDM - Extremity (Nontraumatic) <Carolyn Barker, - Last Filed: 09/11/24 03:38> Lab Data 09/10/24 05:35 09/10/24 05:35 Labs: Lab Results 09/10/24 09/10/24 09/10/24 Range/Units 05:35 06:03 08:58 WBC 11.4 H (4.5-11.0) X10^3/uL RBC 3.43 L (4.0-5.2) X10^6/uL Hgb 10.1 L (12.0-16.0) g/dL Hct 32.4 L (36-46) % MCV 94.6 (80-100) fL MCH 29.5 (26-34) PG MCHC 31.2 (30-36) % RDW 14.4 (11.6-14.8) % Plt Count 165 (150-400) X10^3/uL Neut % (Auto) 78.9 H (50-75) % Lymph % (Auto) 4.7 L (25-40) % [place] % (Auto) 13.4 (3-14) % Eos % (Auto) 2.5 (2-4) % Baso % (Auto) 0.5 (0-2) % Neut # (Auto) 9000 H (2309-2349) /uL Lymph # (Auto) 500 L (6779-0867) /uL [place] # (Auto) 1500 H (0-900) /uL Eos # (Auto) 300 (0-450) /uL Baso # (Auto) 100 (0-100) /uL VBG pH 7.28 L (7.33-7.43) VBG pCO2 36.9 L (45-50) mmHg VBG pO2 57 H (35-45) mmHg VBG HCO3 17 L (24-28) mmol/L VBG Total CO2 17 L (24-29) mmol/L VBG O2 Saturation 85 H (70-75) % VBG Base Excess -8.9 L (0-4) mmol/L FiO2 % 28.0 % % Sodium 139 (137-145) mmol/L Potassium 4.6 (3.4-5.1) mmol/L Chloride 113 H (98-107) mmol/L Carbon Dioxide 17 L (22-32) mmol/L BUN 22 H (7-17) mg/dL Creatinine 4.19 H (0.52-1.04) mg/dL Estimated GFR 14 L (>60) mL/min BUN/Creatinine Ratio 5.3 L (6-22) Glucose 171 H (70-99) mg/dL Calcium 7.6 L (8.4-10.2) mg/dL Total Bilirubin 0.6 (0.2-1.3) mg/dL AST 46 H (14-36) IU/L ALT 63 H (<35) IU/L Alkaline Phosphatase 182 H (38-126) U/L Total Creatine Kinase 239 H (30-135) U/L Troponin I < 0.012 (0.01-0.034) ng/mL NT-Pro-B Natriuret Pep 65938 H (<125) pg/mL Total Protein 6.9 (6.3-8.2) g/dL Albumin 3.8 (3.5-5.0) g/dL Globulin 3.1 (1.7-4.1) g/dL Albumin/Globulin Ratio 1.2 (1.0-2.8) Lipase 14 L D (23-300) U/L Serum , Qual Negative (Negative) Urine RBC 5-10/hpf H (0-5/HPF) Urine WBC 0-1/hpf (0-5/HPF) Ur Squamous Epith Cells 5-10 /hpf H (0-5/HPF) Urine Bacteria Few (2-10) H (None) Hyaline Casts 1-5/lpf (None) Urine Yeast 1-5/hpf H (None) Ur Culture Indicated? Cult not indicated Vol Urine Centrifuged 10ml (spun) Ketones 1.23 H (<0.27) mmol/L Urine Dip Bedside Urine Glucose Negative Bedside Urine Bilirubin - Negative Bedside Urine Ketone - Negative Urine Specific [place] 1.015 Bedside Urine Occult Blood +++ Bedside Urine pH 6.0 Bedside Urine Protein +++ 300 Bedside Urine Urobilinogen - Negative Bedside Urine Nitrite - Negative Bedside Urine Leukocytes - Negative Esterase ECG Data Attestation EKG: I personally reviewed and interpreted this ECG as follows: Prior ECG tracings: available for review Interpretation: Sinus rhythm rate of 93 CO 130 QRS is 70 QTC of 430. Patient was EKG from 09/04/2024, appears overall similar today no peaked T-waves. No acute ST elevation or depression. MDM Narrative Medical decision making narrative: EKG sinus rhythm no acute ST changes Chest x-ray shows no acute cardiopulmonary abnormality identified. Labs, VBG shows pH of 737, pCO2 44, PO2 of 67, bicarb of 25. Labs show white count 11.4 hemoglobin of 10 platelets of 165, potassium 4.6 sodium is 139 chloride 113 CO2 17 with a BUN 22 creatinine of 4.19 similar to 4.18 she was discharged on the . Glucose is 171. AST [place]. [place] [address], troponins less than 0.012. Serum Patient came in with bilateral leg cramping had recent hyperkalemia electrolytes do not show hyperkalemia no significant worsening of her creatinine but she does not appear to be hypoxic today but [place] [address] was in the 14,000-8000 range. Patient has a new hypoxia. Does not have significant work of breathing but may require transfer as patient has had discussion for dialysis. She follows with nephrology through [facility]. Discussed findings with the patient, was 84% with a good plus on room air when she arrived suspect she was developing fluid overload secondary to her chronic kidney disease. Notes she has been following with Nephrology through [facility] they have been doing vein mapping for anticipated dialysis. We will reach out to Nephrology as patient may require transfer to be set up for dialysis. Patient signed out to Dr. Mcgowan while awaiting callback from nephrology. 09/10/24, 0700, Juan M. Sign-out from Dr. Barker. 34-year-old female with history of advanced diabetes, diabetic retinopathy, stage 5 chronic kidney disease, not currently on hemodialysis, followed by area hospital cleaner Dr. Willard of [facility], one-week ago was seen here with hyperkalemia that was treated and discharged home, at her baseline creatinine 4.19, off diuretics for the last two weeks, now has dyspnea and increased BLE leg swelling, new oxygen requirement with 84% room air, serum CO2 17, electrolytes including potassium okay, troponin negative, BNP elevated, recently having been stopped on diuretics due to worsening kidney function. Awaiting call back from Dr. Willard. Assumed care. Patient requesting Dilaudid for low back pain and for leg pains, can not have fentanyl or morphine. IV Dilaudid ordered. 08, case discussed with Nephrology Dr. Willard, who agrees with need for starting dialysis due to fluid overload, advises IV Lasix 80 mg, can accept for transfer. Patient aware. 09, no beds [facility], waitlisted there. Patient prefers query at [place], awaiting call back. 111, case discussed with hospitalist [address] Nunez who accepts patient for transfer 1240, bed now assigned at [address], we will arrange EMS transport. <Roshan Mcgowan MD - Last Filed: 09/10/24 19:06> Lab Data Labs: Lab Results 09/10/24 09/10/24 09/10/24 Range/Units 05:35 06:03 08:58 WBC 11.4 H (4.5-11.0) X10^3/uL RBC 3.43 L (4.0-5.2) X10^6/uL Hgb 10.1 L (12.0-16.0) g/dL Hct 32.4 L (36-46) % MCV 94.6 (80-100) fL MCH 29.5 (26-34) PG MCHC 31.2 (30-36) % RDW 14.4 (11.6-14.8) % Plt Count 165 (150-400) X10^3/uL Neut % (Auto) 78.9 H (50-75) % Lymph % (Auto) 4.7 L (25-40) % [place] % (Auto) 13.4 (3-14) % Eos % (Auto) 2.5 (2-4) % Baso % (Auto) 0.5 (0-2) % Neut # (Auto) 9000 H (3530-2864) /uL Lymph # (Auto) 500 L (2020-5425) /uL [place] # (Auto) 1500 H (0-900) /uL Eos # (Auto) 300 (0-450) /uL Baso # (Auto) 100 (0-100) /uL VBG pH 7.28 L (7.33-7.43) VBG pCO2 36.9 L (45-50) mmHg VBG pO2 57 H (35-45) mmHg VBG HCO3 17 L (24-28) mmol/L VBG Total CO2 17 L (24-29) mmol/L VBG O2 Saturation 85 H (70-75) % VBG Base Excess -8.9 L (0-4) mmol/L FiO2 % 28.0 % % Sodium 139 (137-145) mmol/L Potassium 4.6 (3.4-5.1) mmol/L Chloride 113 H (98-107) mmol/L Carbon Dioxide 17 L (22-32) mmol/L BUN 22 H (7-17) mg/dL Creatinine 4.19 H (0.52-1.04) mg/dL Estimated GFR 14 L (>60) mL/min BUN/Creatinine Ratio 5.3 L (6-22) Glucose 171 H (70-99) mg/dL Calcium 7.6 L (8.4-10.2) mg/dL Total Bilirubin 0.6 (0.2-1.3) mg/dL AST 46 H (14-36) IU/L ALT 63 H (<35) IU/L Alkaline Phosphatase 182 H (38-126) U/L Total Creatine Kinase 239 H (30-135) U/L Troponin I < 0.012 (0.01-0.034) ng/mL NT-Pro-B Natriuret Pep 57751 H (<125) pg/mL Total Protein 6.9 (6.3-8.2) g/dL Albumin 3.8 (3.5-5.0) g/dL Globulin 3.1 (1.7-4.1) g/dL Albumin/Globulin Ratio 1.2 (1.0-2.8) Lipase 14 L D (23-300) U/L Serum , Qual Negative (Negative) Urine RBC 5-10/hpf H (0-5/HPF) Urine WBC 0-1/hpf (0-5/HPF) Ur Squamous Epith Cells 5-10 /hpf H (0-5/HPF) Urine Bacteria Few (2-10) H (None) Hyaline Casts 1-5/lpf (None) Urine Yeast 1-5/hpf H (None) Ur Culture Indicated? Cult not indicated Vol Urine Centrifuged 10ml (spun) Ketones 1.23 H (<0.27) mmol/L Urine Dip Bedside Urine Glucose Negative Bedside Urine Bilirubin - Negative Bedside Urine Ketone - Negative Urine Specific [place] 1.015 Bedside Urine Occult Blood +++ Bedside Urine pH 6.0 Bedside Urine Protein +++ 300 Bedside Urine Urobilinogen - Negative Bedside Urine Nitrite - Negative Bedside Urine Leukocytes - Negative Esterase MDM Narrative Medical decision making narrative: EKG sinus rhythm no acute ST changes Chest x-ray shows no acute cardiopulmonary abnormality identified. Labs, VBG shows pH of 737, pCO2 44, PO2 of 67, bicarb of 25. Labs show white count 11.4 hemoglobin of 10 platelets of 165, potassium 4.6 sodium is 139 chloride 113 CO2 17 with a BUN 22 creatinine of 4.19 similar to 4.18 she was discharged on the . Glucose is 171. AST [place]. [place] [address], troponins less than 0.012. Serum Patient came in with bilateral leg cramping had recent hyperkalemia electrolytes do not show hyperkalemia no significant worsening of her creatinine but she does not appear to be hypoxic today but [place] [address] was in the 14,000-8000 range. Patient has a new hypoxia. Does not have significant work of breathing but may require transfer as patient has had discussion for dialysis. She follows with nephrology through [facility]. Discussed findings with the patient, was 84% with a good plus on room air when she arrived suspect she was developing fluid overload secondary to her chronic kidney disease. Notes she has been following with Nephrology through [facility] they have been doing vein mapping for anticipated dialysis. We will reach out to Nephrology as patient may require transfer to be set up for dialysis. Patient signed out to Dr. Mcgowan while awaiting callback from nephrology. 09/10/24, 0700, Juan M. Sign-out from Dr. Barker. 34-year-old female with history of advanced diabetes, diabetic retinopathy, stage 5 chronic kidney disease, not currently on hemodialysis, followed by area hospital cleaner Dr. Willard of [facility], one-week ago was seen here with hyperkalemia that was treated and discharged home, at her baseline creatinine 4.19, off diuretics for the last two weeks, now has dyspnea and increased BLE leg swelling, new oxygen requirement with 84% room air, serum CO2 17, electrolytes including potassium okay, troponin negative, BNP elevated, recently having been stopped on diuretics due to worsening kidney function. Awaiting call back from Dr. Willard. Assumed care. Patient requesting Dilaudid for low back pain and for leg pains, can not have fentanyl or morphine. IV Dilaudid ordered. 0800, case discussed with Nephrology Dr. Willard, who agrees with need for starting dialysis due to fluid overload, advises IV Lasix 80 mg, can accept for transfer. Patient aware. 0930, no beds [facility], waitlisted there. Patient prefers query at [place], awaiting call back. 1115, case discussed with hospitalist [address] Nunez who accepts patient for transfer 1240, bed now assigned at [address], we will arrange EMS transport Discharge Plan Departure Patient Disposition: [facility] Clinical Impression: CKD (chronic kidney disease) stage 5, GFR less than 15 ml/min, Hypoxia Prescriptions: No Action glucose 4 gram tablet,chewable 4 gram PO Q15M PRN (Reason: hypoglycemia) Qty: 30 0RF Rx Instructions: until response metoprolol succinate 50 mg tablet extended release 24 hr 75 mg PO BEDTIME rosuvastatin 20 mg tablet 40 mg PO BEDTIME ondansetron 4 mg tablet,disintegrating 4 mg PO Q6H PRN (Reason: nausea and vomiting) Qty: 20 0RF diphenhydramine HCl 50 mg Capsule 50 mg PO BEDTIME PRN (Reason: Sleep) Rx Instructions: for itching and sleep insulin degludec [Tresiba FlexTouch U-200] 200 unit/mL (3 mL) insulin pen See Rx Instructions .ROUTE .COMPLEX Rx Instructions: 20u in the am 6units at bedtime (DME) Dexcom G7 Sensor Device MISCELLANEOUS Q10D amlodipine 5 mg tablet 5 mg PO ONCE PM insulin lispro [Admelog U-100 Insulin lispro] 100 unit/mL Solution 14 unit SUBCUT ACHS Qty: 6 0RF insulin degludec [Tresiba FlexTouch U-100] 100 unit/mL (3 mL) insulin pen 15 unit SUBCUT BID Qty: 15 0RF Referrals: Maria Ines Limon DO [Primary Care Provider] -
--- NOTE | 2024-09-10 05:27 | EKG_ITS ---
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
[2024-09-10 06:03] LABS: Add Manual Diff / Slide Review NO; Basophils Absolute Auto 100 /uL (0-100); Basophils Percent Auto 0.5 % (0-2); Eosinophils Absolute Auto 300 /uL (0-450); Eosinophils Percent Auto 2.5 % (2-4); Hematocrit 32.4 % (36-46); Hemoglobin 10.1 g/dL (12.0-16.0); Lymphocytes Absolute Auto 500 /uL (1100-4500); Lymphocytes Percent Auto 4.7 % (25-40); Mean Corpuscular HGB Conc 31.2 % (30-36); Mean Corpuscular Hemoglobin 29.5 PG (26-34); Mean Corpuscular Volume 94.6 fL (80-100); Monocytes Absolute Auto 1500 /uL (0-900); Monocytes Percent Auto 13.4 % (3-14); Neutrophils Absolute Auto 9000 /uL (1500-7000); Neutrophils Percent Auto 78.9 % (50-75); Platelet Count 165 X10^3/uL (150-400); Red Blood Cell Count 3.43 X10^6/uL (4.0-5.2); Red Cell Distribution Width 14.4 % (11.6-14.8); White Blood Cell Count 11.4 X10^3/uL (4.5-11.0)
[2024-09-10 06:05] LABS: Base Excess VBG -8.9 mmol/L (0-4); HCO3 VBG 17 mmol/L (24-28); Oxygen Saturation VBG 85 % (70-75); PCO2 VBG 36.9 mmHg (45-50); PO2 VBG 57 mmHg (35-45); Total CO2 VBG 17 mmol/L (24-29); pH VBG 7.28 (7.33-7.43)
[2024-09-10] MEDS: SODIUM CHLORIDE 0.9% 500 ML 1000 ML IV (06:08)
[2024-09-10 06:26] LABS: Creatine Kinase 239 U/L (30-135)
[2024-09-10 06:28] LABS: Alanine Aminotransferase 63 IU/L (<35); Albumin 3.8 g/dL (3.5-5.0); Albumin Globulin Ratio 1.2 (1.0-2.8); Alkaline Phosphatase 182 U/L (38-126); Aspartate Aminotransferase 46 IU/L (14-36); BUN Creatinine Ratio 5.3 (6-22); Bilirubin Total 0.6 mg/dL (0.2-1.3); Blood Urea Nitrogen 22 mg/dL (7-17); Calcium 7.6 mg/dL (8.4-10.2); Carbon Dioxide 17 mmol/L (22-32); Chloride 113 mmol/L (98-107); Estimated Glomerular Filt Rate 14 mL/min (>60); Globulin 3.1 g/dL (1.7-4.1); Glucose 171 mg/dL (70-99); HEMOLYSIS < 15 (0-50); Lipase 14 U/L (23-300); Potassium 4.6 mmol/L (3.4-5.1); Sodium 139 mmol/L (137-145); Total Protein 6.9 g/dL (6.3-8.2)
[2024-09-10 06:35] LABS: Ketones (Beta-Hydroxybutyrate) 1.23 mmol/L (<0.27)
[2024-09-10 06:39] LABS: NT-proBNP (BNP-Adult 18+) 13000 pg/mL (<125); Troponin I < 0.012 ng/mL (0.01-0.034)
[2024-09-10 06:51] LABS: Pregnancy Test Serum,Qual Negative (Negative)
[2024-09-10] MEDS: HYDROMORPHONE 0.5 MG INJ IV ×3 (07:47→14:39)
[2024-09-10] MEDS: FUROSEMIDE 80 MG in SODIUM CHLORIDE 0.9% 50 ML 116 MG IV (08:35)
[2024-09-10 09:24] LABS: RBC Urine 5-10/HPF (0-5/HPF); Urine Volume 10mL (spun)
[2024-09-10 09:25] LABS: Bacteria Urine Few (2-10); Hyaline Casts Urine 1-5/LPF; Squamous Epithelial Cell Urine 5-10 /HPF (0-5/HPF)
[2024-09-10 09:26] LABS: Culture Indicated Urine Cult Not Indicated; WBC Urine 0-1/HPF (0-5/HPF)
--- NOTE | 2024-09-10 15:01 | CM.SWNOTE ---
ED SOFTWARE SUPPORT ENGINEER Note: Pt is a 34yo female, resident of [place], is seen in the ED for leg pain/fluid overload. Hx of Type 1 Diabetes. Pt lives in a house with her mother and stepfather, her mother is her primary caregiver. Pt's Primary Care Provider is Dr. Maria Ines Limon and insurance is [employer]. Reviewed chart and discussed with multidisciplinary team pt's medical status and initial discharge needs. SOFTWARE SUPPORT ENGINEER consulted to continue coordination for patient post-discharge. Per chart review, pt was admitted last week for similar symptoms and Acute Care SOFTWARE SUPPORT ENGINEER provided [facility] [place] resources to patient and mother. SOFTWARE SUPPORT ENGINEER entered room to meet with patient, introduced self and role. Present in the room is pt's mother, Argelia. It is reported patient will be transferred to [facility] for dialysis, reviewed this with patient. Pt states she has a hx of home health the past but could not remember agency, state they would like to have home health RN and PT/OT to assist with initial recovery as they initiate transition to dialysis. ED SOFTWARE SUPPORT ENGINEER provided education on what services that could be available to patient, agencies available to them and what to request in discharge plan from next hospital. No other social needs identified at this time. Plan: Pt to transfer to [facility] via [facility] at 1445. ED staff following for care coordination. SEE [place]
== END 2024-09-10 15:00 | disposition short-term general hospital (02) ==
PROVIDERS: Emergency Medicine; Emergency Provider Emergency Medicine; PCP Student in an Organized Health Care Education/Training Program
DX: N18.5 Chronic kidney disease, stage 5 (principal); R09.02 Hypoxemia; M79.605 Pain in left leg; M79.604 Pain in right leg
CPT/HCPCS: 36415; 71045; 80053; 81003; 81015; 82009; 82550; 82805; 83690; 83880; 84484; 84703; 85025; 93005; 96361; 96365; 96375; 96376; 99284; J1171; J1938

== ENCOUNTER 2025-01-14 21:20 | Emergency (ER) | payer OTHER, SELFPAY ==
[2024-09-04 22:52] VITALS: BMI 29.5
[2025-01-14] VITALS (8 sets, daily range): BP systolic 165–189; BP diastolic 86–98; PULSE 79–84; RESP 11–20; O2SAT 93–100; BMI 29.3
--- NOTE | 2025-01-14 21:35 | DI.RAD.S_ITS ---
PROCEDURE: XR CHEST 1V INDICATIONS: Chest Pain TECHNIQUE: One view of the chest was acquired. COMPARISON: [facility], CR, XR CHEST 1V, 09/10/2024, 5:12. FINDINGS: Surgical changes and devices: Right IJ central venous catheter with tip projecting over the right atrium. Lungs and pleura: Lungs are clear. No pleural effusions or pneumothorax. Mediastinum: Mediastinal contours appear normal. Heart size is normal. Bones and chest wall: No suspicious bony lesions. Overlying soft tissues appear unremarkable. IMPRESSION: No acute cardiopulmonary abnormality is seen. Approved by: Blanca Bright M.D.,Ph.D. on 01/14/2025 at 22:18
--- NOTE | 2025-01-14 21:59 | DI.CT.S_ITS ---
PROCEDURE: CT ABDOMEN PELVIS WO CON INDICATIONS: abd pain TECHNIQUE: CT of the abdomen and pelvis was obtained without intravenous contrast. Coronal and sagittal reformats were performed. For radiation dose reduction, the following was used: automated exposure control, adjustment of mA and/or kV according to patient size. COMPARISON: [facility], CT, CT ABDOMEN PELVIS WO CON, 08/25/2024, 12:13. FINDINGS: Image quality: Diagnostic. Lower Chest: No significant findings. ABDOMEN: Liver: No contour-deforming mass. Gallbladder: Surgically absent Biliary ducts: No biliary dilation. Pancreas: No ductal dilation. Spleen: Size is within normal limits. Adrenal Glands: No adrenal nodules. Kidneys and Ureters: No hydronephrosis. No contour-deforming mass. Stomach and Bowel: Normal colonic caliber, without significant wall thickening. Mild fecal stasis seen predominantly in the cecum. Appendix is not definitively visualized, however no secondary signs of acute appendicitis in the right lower quadrant. Peritoneum: No abnormal intraperitoneal fluid. No free air. Ventral Wall: No significant hernia. Abdominal Nodes: No retroperitoneal or mesenteric adenopathy by size criteria. Vessels: Aorta and inferior vena cava are normal in size. PELVIS: Pelvic Organs: Unremarkable. Bladder: Unremarkable. Pelvic Nodes: No enlarged lymph nodes. Miscellaneous: No inguinal hernias are seen. Bones: No aggressive osseous abnormality. IMPRESSION: No acute abdominopelvic process to explain patient's symptoms. Approved by: Blanca Bright M.D.,Ph.D. on 01/14/2025 at 23:41
--- NOTE | 2025-01-14 22:10 | PC.NURSE ---
Bear darrick placed on patient
[2025-01-14 22:17] LABS: Add Manual Diff / Slide Review NO; Hematocrit 41.9 % (36-46); Hemoglobin 13.6 g/dL (12.0-16.0); Lymphocytes Absolute Auto 700 /uL (1100-4500); Mean Corpuscular HGB Conc 32.5 % (30-36); Mean Corpuscular Hemoglobin 29.6 PG (26-34); Mean Corpuscular Volume 91.3 fL (80-100); Platelet Count 224 X10^3/uL (150-400)
[2025-01-14 22:22] LABS: Base Excess VBG 4.8 mmol/L (0-4); HCO3 VBG 31 mmol/L (24-28); Oxygen Saturation VBG 90 % (70-75); PCO2 VBG 51.2 mmHg (45-50); PO2 VBG 61 mmHg (35-45); Total CO2 VBG 30 mmol/L (24-29); pH VBG 7.39 (7.33-7.43)
[2025-01-14 22:24] LABS: INR 1.0 (0.9-1.3); Prothrombin Time 11.4 SECONDS (9.4-12.5)
[2025-01-14 22:27] LABS: PTT Partial Thromboplastin Tim 42 SECONDS (25.1-36.5)
--- NOTE | 2025-01-14 22:30 | PC.NURSE ---
Pt to CT
[2025-01-14 22:38] LABS: Alanine Aminotransferase 51 IU/L (<35); Albumin 5.0 g/dL (3.5-5.0); Albumin Globulin Ratio 1.4 (1.0-2.8); Alkaline Phosphatase 132 U/L (38-126); Blood Urea Nitrogen 17 mg/dL (7-17); Calcium 9.0 mg/dL (8.4-10.2); Carbon Dioxide 30 mmol/L (22-32); Chloride 95 mmol/L (98-107); Creatine Kinase 122 U/L (30-135); Estimated Glomerular Filt Rate 28 mL/min (>60); Globulin 3.6 g/dL (1.7-4.1); Glucose 125 mg/dL (70-99); HEMOLYSIS 16 (0-50); Lipase 33 U/L (23-300); Magnesium 1.9 mg/dL (1.6-2.3); Potassium 4.2 mmol/L (3.4-5.1); Sodium 134 mmol/L (137-145); Total Protein 8.6 g/dL (6.3-8.2)
[2025-01-14 22:50] LABS: NT-proBNP (BNP-Adult 18+) 3430 pg/mL (<125); Troponin I 0.014 ng/mL (0.01-0.034)
--- NOTE | 2025-01-14 23:09 | ED_ITS ---
HPI - Recheck/Abnormal Lab/Rx General Chief Complaint: Recheck/Abnormal Lab/Rx Stated Complaint: Abd pain after dialysis Time Seen by Provider: 01/14/25 21:24 Source: EMS Mode of arrival: EMS History of Present Illness HPI narrative: 34-year-old female history of insulin dependent diabetes multiple complications including diabetic retinopathy blindness CKD stage 4 CHF hypertension finished dialysis today and started to have headache, abdominal pain, nonbilious nonbloody nausea and vomiting brought in EMS whereby they gave Tylenol and Compazine Zofran prior to arrival here. Per mom, patient usually has headaches and migraines during dialysis along with nausea and vomiting and they usually have to stop dialysis and then restarted after her symptoms aside. However today she looked a bit weaker and mom was concerned and wanted her to be re- evaluated. Other than what is stated 14 point review of system is negative. Related Data Home Medications ?Medication ?Instructions ?Recorded ?Confirmed diphenhydramine HCl 50 mg capsule 50 mg PO BEDTIME PRN Sleep 09/29/20 09/10/24 insulin degludec 200 unit/mL (3 See Rx Instructions .R oute .COMPLEX 11/13/21 07/02/22 mL) subcutaneous pen (Tresiba FlexTouch U-200 insulin) metoprolol succinate 50 mg 75 mg PO BEDTIME 10/20/23 0 09/10/24 tablet,extended release 24 hr rosuvastatin 20 mg tablet 40 mg PO BEDTIME 10/20/23 blood-glucose sensor (Dexcom G7 07/19/24 09/05/24 Sensor device) amlodipine 5 mg tablet 5 mg PO ONCE PM 09/04/24 Previous Rx's ?Medication ?Instructions ?Recorded glucose 4 gram chewable tablet 4 gram PO Q15M PRN hypo glycemia 12/12/18 #30 tabs ondansetron 4 mg disintegrating 4 mg PO Q6H PRN nausea and 08/25/24 tablet vomiting #20 tabs insulin degludec 100 unit/mL (3 15 unit (0.15 mL) SUBC UT BID #15 mL 09/06/24 mL) subcutaneous pen (Tresiba FlexTouch U-100 insulin) insulin lispro 100 unit/mL 14 unit (0.14 mL) SUBCUT AC HS #6 mL 09/06/24 subcutaneous solution (Admelog U-100 Insulin lispro) ondansetron 4 mg disintegrating 4 mg PO Q8H PRN nausea and 01/15/25 tablet vomiting #30 tabs Allergies Allergy/AdvReac Type Severity Reaction Status Date / Time abdalla (ABDALLA) Allergy Intermediate Hives, Verified 09/04/24 18:11 pruritus iodine (IODINE) Allergy Intermediate rash, itchy Verified 09/04/24 18:11 morphine Allergy Intermediate Difficulty Verified 09/04/24 18:11 Breathing shellfish derived (SHELLFISH Allergy Intermediate rash Verified 09/04/24 18:11 DERIVED) adhesive (ADHESIVE) Allergy Unknown tape Verified 09/04/24 18:11 latex (LATEX) Allergy Unknown Hives Verified 09/04/24 18:11 amoxicillin (From Augmentin) AdvReac Severe Abnormal Verified 09/04/24 18:11 LFTs, N/V clavulanic acid (From AdvReac Severe Abnormal Verified 09/04/24 18:11 Augmentin) LFTs, N/V fentanyl AdvReac Severe other Verified 09/04/24 18:11 Review of Systems Review of Systems ROS Unobtainable: All systems reviewed & are unremarkable except as noted in HPI and below Patient History Medical History Abnormal liver function tests Noncompliance w/medication treatment due to intermit use of medication Irregular menstrual cycle Migraine headache History of pyelonephritis DKA (diabetic ketoacidoses) Nephrolithiasis Type 1 diabetes mellitus Surgical History Status post cholecystectomy Hx of cataract surgery Hx of local excision of skin lesion [place] teeth extracted Status post laser lithotripsy of ureteral calculus History of ureter stent Family History Father In good health Mother Cardiac disease Social History details: Engaged household members: family alcohol intake: never alcohol intake frequency: holidays/special occasions only Exam Narrative Exam Narrative: GENERAL: [34] year old patient appears stated age. Well-developed patient, in mild distress. HEAD: Atraumatic. Normocephalic. EYES: Pupils equal round and reactive. Extraocular motions intact. No scleral icterus. No injection or drainage. ENT: Nose without bleeding, purulent drainage. Throat without erythema, tonsillar hypertrophy or exudate. Airway patent. NECK: Trachea midline. Non tender CARDIOVASCULAR: Regular rate and rhythm without murmurs, gallops, or rubs. RESPIRATORY: Clear to auscultation. Breath sounds equal bilaterally. No wheezes, rales, or rhonchi. GASTROINTESTINAL: Abdomen soft, non-tender, nondistended. EXTREMITIES: No edema or joint tenderness. BACK: Nontender without deformity or crepitance. No flank tenderness. NEURO: AOx3. SKIN: No rash or erythema of visible areas Initial Vital Signs Initial Vital Signs: Vital Signs Pulse Rate 81 01/14/25 21:25 Respiratory Rate 20 01/14/25 21:25 Blood Pressure 188/98 H 01/14/25 21:25 Pulse Oximetry 99 01/14/25 21:25 Oxygen Delivery Method Room Air 01/14/25 21:25 Course Orders Ordered: ED Orders 01/14/25 21:35 XR chest 1V Stat EKG-12 Lead Stat 01/14/25 21:59 CT abdomen pelvis wo con Stat 01/14/25 22:04 VBG [Venous Blood Gas] STAT 01/14/25 22:05 Complete Blood Count AUTO DIFF Stat Comprehensive Metabolic Panel Stat Lipase Stat Magnesium Stat NT-proBNP (BNP-Adult 18+) Stat PTT Partial Thromboplastin Lee Stat Prothrombin Time INR Stat Troponin & CK Cardiac Panel Stat 01/14/25 22:19 Venous Blood Gas Routine Discontinued Medications Aspirin (Aspirin 81 Mg Chew Tab) 324 mg PO NOW ONE Stop: 01/14/25 21:36 Last Admin: 01/14/25 22:24 Dose: Not Given Documented By: MATTIE Diphenhydramine HCl (Diphenhydramine 50 Mg/Ml Vial) 50 mg IV NOW ONE Stop: 01/14/25 23:15 Last Admin: 01/14/25 23:21 Dose: 50 mg Documented By: MATTIE Droperidol (Droperidol 2.5 Mg/Ml Vial) 1.25 mg IV NOW ONE Stop: 01/14/25 23:15 Last Admin: 01/14/25 23:21 Dose: 1.25 mg Documented By: MATTIE Vital Signs Vital signs: Vital Signs - 8 hr 01/14/25 21:25 01/14/25 21:56 01/14/25 22:00 Pulse Rate 81 80 80 Respiratory Rate 20 Blood Pressure 188/98 H Pulse Oximetry 99 100 100 Oxygen Delivery Method Room Air 01/14/25 22:08 01/14/25 22:08 01/14/25 22:34 Pulse Rate 79 80 Respiratory Rate 20 Blood Pressure 189/91 H Pulse Oximetry 100 99 Oxygen Delivery Method 01/14/25 22:38 01/14/25 22:38 01/14/25 23:00 Pulse Rate 80 Respiratory Rate 13 Blood Pressure 189/91 H 178/86 H Pulse Oximetry 98 Oxygen Delivery Method 01/14/25 23:00 Pulse Rate 79 Respiratory Rate 11 L Blood Pressure Pulse Oximetry 93 Oxygen Delivery Method MDM - Recheck/Abnormal Lab/Rx Lab Data 01/14/25 22:05 01/14/25 22:05 Labs: Lab Results 01/14/25 01/14/25 Range/Units 22:05 22:19 WBC 7.5 (4.5-11.0) X10^3/uL RBC 4.59 (4.0-5.2) X10^6/uL Hgb 13.6 (12.0-16.0) g/dL Hct 41.9 (36-46) % MCV 91.3 (80-100) fL MCH 29.6 (26-34) PG MCHC 32.5 (30-36) % RDW 14.3 (11.6-14.8) % Plt Count 224 (150-400) X10^3/uL Neut % (Auto) 82.7 H (50-75) % Lymph % (Auto) 9.6 L (25-40) % Becker % (Auto) 5.0 (3-14) % Eos % (Auto) 1.3 L (2-4) % Baso % (Auto) 1.4 (0-2) % Neut # (Auto) 6200 (0524-7779) /uL Lymph # (Auto) 700 L (7333-4491) /uL Becker # (Auto) 400 (0-900) /uL Eos # (Auto) 100 (0-450) /uL Baso # (Auto) 100 (0-100) /uL PT 11.4 (9.4-12.5) SECONDS INR 1.0 (0.9-1.3) APTT 42 H (25.1-36.5) SECONDS VBG pH 7.39 (7.33-7.43) VBG pCO2 51.2 H (45-50) mmHg VBG pO2 61 H (35-45) mmHg VBG HCO3 31 H (24-28) mmol/L VBG Total CO2 30 H (24-29) mmol/L VBG O2 Saturation 90 H (70-75) % VBG Base Excess 4.8 H (0-4) mmol/L FiO2 % 32.0 % % Sodium 134 L (137-145) mmol/L Potassium 4.2 (3.4-5.1) mmol/L Chloride 95 L (98-107) mmol/L Carbon Dioxide 30 (22-32) mmol/L BUN 17 (7-17) mg/dL Creatinine 2.33 H (0.52-1.04) mg/dL Estimated GFR 28 L (>60) mL/min BUN/Creatinine Ratio 7.3 (6-22) Glucose 125 H (70-99) mg/dL Calcium 9.0 (8.4-10.2) mg/dL Magnesium 1.9 (1.6-2.3) mg/dL Total Bilirubin 1.0 (0.2-1.3) mg/dL AST 50 H (14-36) IU/L ALT 51 H (<35) IU/L Alkaline Phosphatase 132 H (38-126) U/L Total Creatine Kinase 122 (30-135) U/L Troponin I 0.014 (0.01-0.034) ng/mL NT-Pro-B Natriuret Pep 3430 H (<125) pg/mL Total Protein 8.6 H (6.3-8.2) g/dL Albumin 5.0 (3.5-5.0) g/dL Globulin 3.6 (1.7-4.1) g/dL Albumin/Globulin Ratio 1.4 (1.0-2.8) Lipase 33 (23-300) U/L Imaging Data Chest x-ray: Radiologist's Impression: [address] [address] XRay Report Signed Patient: Sarabjit Jimenes MR#: [id number] : 1990 Acct:[id number] Age/Sex: 34 / F Date of Service: 01/14/25 Loc: ED Accession Number: [id number] Procedure: XR chest 1V Ordering Provider: Mike Arroyo D.O. PROCEDURE: XR CHEST 1V INDICATIONS: Chest Pain TECHNIQUE: One view of the chest was acquired. COMPARISON: [facility], CR, XR CHEST 1V, 09/10/2024, 5:12. FINDINGS: Surgical changes and devices: Right IJ central venous catheter with tip projecting over the right atrium. Lungs and pleura: Lungs are clear. No pleural effusions or pneumothorax. Mediastinum: Mediastinal contours appear normal. Heart size is normal. Bones and chest wall: No suspicious bony lesions. Overlying soft tissues appear unremarkable. IMPRESSION: No acute cardiopulmonary abnormality is seen. CT scan - abdomen/pelvis: Radiologist's Impression: [place] [address] CT Scan Report Signed Patient: Sarabjit Jimenes MR#: [id number] : 1990 Acct:[id number] Age/Sex: 34 / F Date of Service: 01/14/25 Loc: ED Accession Number: [id number] Procedure: CT abdomen pelvis wo con Ordering Provider: Mike Arroyo D.O. PROCEDURE: CT ABDOMEN PELVIS WO CON INDICATIONS: abd pain TECHNIQUE: CT of the abdomen and pelvis was obtained without intravenous contrast. Coronal and sagittal reformats were performed. For radiation dose reduction, the following was used: automated exposure control, adjustment of mA and/or kV according to patient size. COMPARISON: [facility], CT, CT ABDOMEN PELVIS WO CON, 08/25/2024, 12:13. FINDINGS: Image quality: Diagnostic. Lower Chest: No significant findings. ABDOMEN: Liver: No contour-deforming mass. Gallbladder: Surgically absent Biliary ducts: No biliary dilation. Pancreas: No ductal dilation. Spleen: Size is within normal limits. Adrenal Glands: No adrenal nodules. Kidneys and Ureters: No hydronephrosis. No contour-deforming mass. Stomach and Bowel: Normal colonic caliber, without significant wall thickening. Mild fecal stasis seen predominantly in the cecum. Appendix is not definitively visualized, however no secondary signs of acute appendicitis in the right lower quadrant. Peritoneum: No abnormal intraperitoneal fluid. No free air. Ventral Wall: No significant hernia. Abdominal Nodes: No retroperitoneal or mesenteric adenopathy by size criteria. Vessels: Aorta and inferior vena cava are normal in size. PELVIS: Pelvic Organs: Unremarkable. Bladder: Unremarkable. Pelvic Nodes: No enlarged lymph nodes. Miscellaneous: No inguinal hernias are seen. Bones: No aggressive osseous abnormality. IMPRESSION: No acute abdominopelvic process to explain patient's symptoms. MDM Narrative Medical decision making narrative: Vital signs, nurse triage note, medication list, previous ER visits, and all imaging studies reviewed. Chest x-ray and CT abdomen and pelvis showed no acute process. WBC 7.5 hemoglobin 13.6 platelet 224 VBG pH 7.39 pCO2 51.2 PO2 61 bicarb 31 O2 sat 90 base excess 4.8 sodium 134 potassium 4.2 chloride 95 BUN 17 creatinine 2.33 glucose 125 troponin normal. Patient given droperidol Benadryl here. Differential diagnosis COVID flu RSV constipation pneumonia sepsis viral. Patient feels much better on reexamination and would like to go home. Discharge Plan Departure Patient Disposition: Home Clinical Impression: Nausea & vomiting Qualifiers: Vomiting type: unspecified Qualified Code(s): R11.2 - Nausea with vomiting, unspecified Headache Qualifiers: Headache type: tension-type Headache chronicity pattern: acute headache I ntractability: intractable Qualified Code(s): G44.201 - Tension-type headache, unspecified, intractable Instructions: Nausea and Vomiting-Adult Activity Restrictions/Additional Instructions: Return with new or worsening symptoms. Keep hydrated. Take medicines as directed. Follow up PCP next week if no improvement in symptoms. Prescriptions: New ondansetron 4 mg tablet,disintegrating 4 mg PO Q8H PRN (Reason: nausea and vomiting) Qty: 30 0RF No Action glucose 4 gram tablet,chewable 4 gram PO Q15M PRN (Reason: hypoglycemia) Qty: 30 0RF Rx Instructions: until response metoprolol succinate 50 mg tablet extended release 24 hr 75 mg PO BEDTIME rosuvastatin 20 mg tablet 40 mg PO BEDTIME ondansetron 4 mg tablet,disintegrating 4 mg PO Q6H PRN (Reason: nausea and vomiting) Qty: 20 0RF diphenhydramine HCl 50 mg Capsule 50 mg PO BEDTIME PRN (Reason: Sleep) Rx Instructions: for itching and sleep insulin degludec [Tresiba FlexTouch U-200] 200 unit/mL (3 mL) insulin pen See Rx Instructions .ROUTE .COMPLEX Rx Instructions: 20u in the am 6units at bedtime (DME) Dexcom G7 Sensor Device MISCELLANEOUS Q10D amlodipine 5 mg tablet 5 mg PO ONCE PM insulin lispro [Admelog U-100 Insulin lispro] 100 unit/mL Solution 14 unit SUBCUT ACHS Qty: 6 0RF insulin degludec [Tresiba FlexTouch U-100] 100 unit/mL (3 mL) insulin pen 15 unit SUBCUT BID Qty: 15 0RF Referrals: Maria Ines Limon DO [Primary Care Provider, Internal Medicine] Stand Alone Forms: Patient Portal/API
[2025-01-14] MEDS: diphenhydrAMINE 50 MG/ML VIAL IV (23:21)
[2025-01-14] MEDS: droPERidol 2.5 MG/ML VIAL 1.25 MG IV (23:21)
[2025-01-15] VITALS: BP 157/86; PULSE 83; RESP 12; O2SAT 98
== END 2025-01-15 00:36 | disposition home or self-care (01) ==
PROVIDERS: Emergency Provider Family Medicine; PCP Student in an Organized Health Care Education/Training Program
DX: G44.201 Tension-type headache, unspecified, intractable (principal); R11.2 Nausea with vomiting, unspecified; Z99.2 Dependence on renal dialysis; R07.9 Chest pain, unspecified; R10.9 Unspecified abdominal pain
CPT/HCPCS: 36415; 71045; 74176; 80053; 82550; 82805; 83690; 83735; 83880; 84484; 85025; 85610; 85730; 96374; 96375; 99284; J1200; J1790